=== PATIENT | female | born 1940 | race Caucasian/White ===

== ENCOUNTER → 2023-11-17 05:00 | Outpatient (REF) | payer MEDICARE, OTHER, SELFPAY ==
[2023-11-17 10:52] LABS: Hematocrit 37.9 % (37-47); Hemoglobin 12.2 g/dL (12.0-15.0); Mean Corp Hgb Conc 32.2 g/dL (32-36); Mean Corpuscular Hgb 28.1 pg (27.0-32.0); Mean Corpuscular Volume 87.3 fL (81-99); Mean Platelet Vol. 10.6 fl (6.2-12.0); Platelet Count 112 K/mm3 (150-450); RBC Distribution Width CV 18.2 % (11.6-14.6); RBC Distribution Width SD 58.2 fl (35.1-43.9); Red Blood Count 4.34 M/mm3 (4.2-5.4); White Blood Count 6.8 K/mm3 (4.4-11.0)
[2023-11-17 11:24] LABS: ALB/GLOB Ratio 0.8 RATIO (0.9-2.4); AST(SGOT) 21 U/L (15-37); Alanine Aminotransfer ALT/SGPT 19 U/L (13-56); Alkaline Phosphatase 117 U/L (45-117); Anion Gap 5 (5-15); BUN 15 mg/dL (7-18); BUN/Creat Ratio 16.9 RATIO (10-20); Calcium,Total 9.9 mg/dL (8.5-10.1); Chloride 99 mmol/L (98-107); Creatinine, Serum 0.89 mg/dL (0.55-1.02); EST Glomerular Filtration Rate 64 mL/min (>60); Est Glom Filt Rate - Afr Amer 78 mL/min (>60); Globulin 3.7 g/dL (2.2-4.2); Glucose 107 mg/dL (74-106); Potassium 3.8 mmol/L (3.5-5.1); Protein, Total 6.7 g/dL (6.4-8.2); Sodium Level 136 mmol/L (136-145)
== END ==
LOC: OLS.ACH 05:00
PROVIDERS: Visit Provider Internal Medicine
DX: E03.9 Hypothyroidism, unspecified (principal); I50.32 Chronic diastolic (congestive) heart failure
CPT/HCPCS: 36415; 80053; 84443; 85027

== ENCOUNTER → 2023-12-29 | Outpatient (REF) | payer MEDICARE, OTHER, SELFPAY ==
[2023-12-29 11:08] LABS: Thyroid Stim Hormone (TSH) 0.328 uIU/mL (0.358-3.740)
== END ==
LOC: OLS.ACH 05:01
PROVIDERS: Visit Provider Internal Medicine
DX: E03.9 Hypothyroidism, unspecified (principal)
CPT/HCPCS: 36415; 84443

== ENCOUNTER → 2024-01-02 | Outpatient (REF) | payer MEDICARE, OTHER, SELFPAY ==
[2024-01-02 10:41] LABS: Mucous, Urine 0 SEEN /hpf (<or=2+); Red Blood Cells-Urine 0 SEEN /hpf (0-5)
[2024-01-02 10:44] LABS: Color, Urine Yellow (Yellow); Glucose, Dipstick Normal (Normal); Ketone-Dipstick Negative (Negative); Leukocyte Esterase-Dipstick 500 /ul (Negative); Nitrite-Dipstick Positive (Negative); Occult Blood-Urine 50 /ul (Negative); Protein-Dipstick 100 mg/dl (Negative); Specific Gravity, Urine 1.015 (1.002-1.030); Urine Bilirubin Dipstick Negative (Negative); Urine Clarity Sl. Cloudy (Clear); Urine Urobilinogen Normal (Normal)
[2024-01-02 10:51] LABS: Bacteria 2+ /hpf (None Seen); Transitional Epithelial - Ur 0-5 SEEN /hpf (0-5); White Blood Cells 50-100 SEEN /hpf (0-5)
[2024-01-02 10:52] LABS: Squamous Epithelial Cells - UA 0-5 SEEN /hpf (5-10)
== END ==
LOC: OLS.ACH 02:00
PROVIDERS: Visit Provider Internal Medicine
DX: R35.0 Frequency of micturition (principal)
CPT/HCPCS: 81001; 87077; 87086; 87088; 87186

== ENCOUNTER → 2024-01-12 | Outpatient (REF) | payer MEDICARE, OTHER, SELFPAY ==
[2024-01-13 08:24] LABS: Mucous, Urine 0 SEEN /hpf (<or=2+)
[2024-01-13 08:43] LABS: Color, Urine Yellow (Yellow); Glucose, Dipstick Normal (Normal); Ketone-Dipstick Negative (Negative); Leukocyte Esterase-Dipstick 500 /ul (Negative); Nitrite-Dipstick Positive (Negative); Occult Blood-Urine 50 /ul (Negative); Protein-Dipstick 30 mg/dl (Negative); Urine Bilirubin Dipstick Negative (Negative); Urine Clarity Cloudy (Clear); Urine Urobilinogen Normal (Normal); Urine pH 6.5 (5.0 - 8.0)
[2024-01-13 08:49] LABS: Bacteria 2+ /hpf (None Seen); Red Blood Cells-Urine 0-5 SEEN /hpf (0-5); Squamous Epithelial Cells - UA 0-5 SEEN /hpf (5-10); White Blood Cells >100 SEEN /hpf (0-5)
== END ==
LOC: OLS.ACH 21:20
PROVIDERS: Referring Provider Internal Medicine; Visit Provider Internal Medicine
DX: R35.0 Frequency of micturition (principal); Z87.440 Personal history of urinary (tract) infections
CPT/HCPCS: 81001; 87077; 87086; 87088; 87186

== ENCOUNTER → 2024-02-02 | Outpatient (REF) | payer MEDICARE, OTHER, SELFPAY ==
[2024-02-02 09:21] LABS: Hematocrit 37.2 % (37-47); Hemoglobin 12.1 g/dL (12.0-15.0); Mean Corp Hgb Conc 32.5 g/dL (32-36); Mean Corpuscular Hgb 28.2 pg (27.0-32.0); Mean Corpuscular Volume 86.7 fL (81-99); Mean Platelet Vol. 10.3 fl (6.2-12.0); POSITIVE COUNT YES; Platelet Count 87 K/mm3 (150-450); RBC Distribution Width CV 13.9 % (11.6-14.6); RBC Distribution Width SD 44.1 fl (35.1-43.9); Red Blood Count 4.29 M/mm3 (4.2-5.4); White Blood Count 4.7 K/mm3 (4.4-11.0)
[2024-02-02 09:31] LABS: Anion Gap 4 (5-15); BUN 15 mg/dL (7-18); BUN/Creat Ratio 19.2 RATIO (10-20); Calcium,Total 9.4 mg/dL (8.5-10.1); Chloride 102 mmol/L (98-107); Creatinine, Serum 0.78 mg/dL (0.55-1.02); EST Glomerular Filtration Rate 74 mL/min (>60); Est Glom Filt Rate - Afr Amer 90 mL/min (>60); Glucose 80 mg/dL (74-106); Potassium 3.9 mmol/L (3.5-5.1); Sodium Level 138 mmol/L (136-145)
[2024-02-02 09:36] LABS: Scan Indicated on CBC? Y/N YES- FLAGS NOTED
== END ==
LOC: OLS.ACH 05:00
PROVIDERS: Visit Provider Internal Medicine
DX: I50.32 Chronic diastolic (congestive) heart failure (principal)
CPT/HCPCS: 36415; 80048; 85027

== ENCOUNTER → 2024-02-09 | Outpatient (REF) | payer MEDICARE, OTHER, SELFPAY | LOC: OLS.ACH 04:00 | PROVIDERS: Referring Provider Internal Medicine; Visit Provider Internal Medicine | DX: E03.9 Hypothyroidism, unspecified (principal) | CPT/HCPCS: 36415; 84443 ==

== ENCOUNTER → 2024-03-11 05:00 | Outpatient (REF) | payer MEDICARE, OTHER, SELFPAY ==
[2024-03-11 10:01] LABS: Anion Gap 5 (5-15); BUN 16 mg/dL (7-18); BUN/Creat Ratio 18.8 RATIO (10-20); Calcium,Total 9.9 mg/dL (8.5-10.1); Chloride 99 mmol/L (98-107); Creatinine, Serum 0.85 mg/dL (0.55-1.02); EST Glomerular Filtration Rate 68 mL/min (>60); Est Glom Filt Rate - Afr Amer 82 mL/min (>60); Glucose 89 mg/dL (74-106); Potassium 3.8 mmol/L (3.5-5.1); Sodium Level 136 mmol/L (136-145)
== END ==
LOC: OLS.ACH 05:00
PROVIDERS: Visit Provider Internal Medicine
DX: I50.32 Chronic diastolic (congestive) heart failure (principal)
CPT/HCPCS: 36415; 80048

== ENCOUNTER 2024-04-17 04:55 | Inpatient (IN) | payer MEDICARE, SELFPAY ==
[2024-04-17] VITALS (15 sets, daily range): BP systolic 121–141; BP diastolic 71–120; PULSE 84–94; RESP 18–29; TEMP 35.7–36.9; O2SAT 90–100; BMI 39.4; BMI 37.9
--- NOTE | 2024-04-17 05:28 | RAD_ITS ---
PROCEDURE: Portable upright chest radiograph, one view REASON FOR EXAM: Cough. TECHNIQUE: Portable upright chest radiograph, one view COMPARISON: None. FINDINGS: The patient is rotated slightly to the right. Bones are osteopenic, grossly intact. Severe degenerative changes of the glenohumeral joints. Heart size at the upper limits of normal. Mild perihilar vascular crowding. No pneumothorax. There may be a tiny right pleural effusion. There are some patchy opacities projecting over the mid to lower lungs bilaterally. 1.8 cm nodular opacity projects over the right mid lung. RAD/Chest 1 View (Portable) IMPRESSION: Mild rightward rotation. Heart size at the upper limits of normal. There are some patchy opacities projecting over the mid to lower lungs bilatera lly, which could be due to areas of atelectasis or developing pneumonia. Question tiny right pleural effusion. Recommend continu ed radiologic follow-up to document resolution. A 1.8 cm nodular opacity projects over the right mid lung. Recommend short-ter m follow-up chest CT to exclude the possibility of a pulmonary nodule. Severe degenerative changes of the glenohumeral joints. Reading Location: [facility]
[2024-04-17 05:36] LABS: Absolute Lymphocyte Count 1.23 X10^3/uL (0.83-4.51); Absolute Neutrophil Count 6.2 X10^3/uL (2.0-7.7); Basophil# 0.03 X10^3/uL; Basophil% 0.3 % (0-1); Eosinophil# 0.01 X10^3/uL; Eosinophils% 0.1 % (0-5); Hematocrit 37.7 % (37-47); Hemoglobin 12.2 g/dL (12.0-15.0); Lymphocyte # 1.23 X10^3/ul (0.83-4.51); Lymphocyte % 13.4 % (19-41); Mean Corp Hgb Conc 32.4 g/dL (32-36); Mean Corpuscular Hgb 28.4 pg (27.0-32.0); Mean Corpuscular Volume 87.9 fL (81-99); Mean Platelet Vol. 10.5 fl (6.2-12.0); Monocyte# 1.53 X10^3/uL; Monocyte% 16.6 % (0-10); NRBC Flagged by Analyzer 0 % (0-5); Neutrophil # 6.23 X10^3/uL (2.7-7.7); Neutrophil % 67.9 % (47-70); POSITIVE DIFFERENTIAL YES; Platelet Count 151 K/mm3 (150-450); RBC Distribution Width CV 14.7 % (11.6-14.6); RBC Distribution Width SD 47.6 fl (35.1-43.9); Red Blood Count 4.29 M/mm3 (4.2-5.4); White Blood Count 9.2 K/mm3 (4.4-11.0)
[2024-04-17 05:44] LABS: Differential Indicated SCAN CRITERIA MET
[2024-04-17 05:45] LABS: Anion Gap 5 (5-15); BUN 17 mg/dL (7-18); BUN/Creat Ratio 20.6 RATIO (10-20); Calcium,Total 9.8 mg/dL (8.5-10.1); Chloride 95 mmol/L (98-107); Creatinine, Serum 0.83 mg/dL (0.55-1.02); EST Glomerular Filtration Rate 70 mL/min (>60); Est Glom Filt Rate - Afr Amer 84 mL/min (>60); Estimated Creatinine Clearance 52.04 ml/min; Glucose 85 mg/dL (74-106); Magnesium 1.7 mg/dL (1.6-2.6); Potassium 4.1 mmol/L (3.5-5.1); Sodium Level 136 mmol/L (136-145)
[2024-04-17 05:59] LABS: Allen Test Positive; Base Excess 12 mmol/L (-2 to +2); Bicarbonate 36.1 mmol/L (22-26); Blood Gas Specimen Type ART; Mode Not entered; O2 Delivery Device Not entered; PO2 78 mmHG (75-100); SITE R Radial; SO2 96 % (95-99); Total Carbon Dioxide 38 mmol/L; pCO2 53.5 mmHg (35-45); pH 7.44 (7.35-7.45)
[2024-04-17 06:07] LABS: Differential Comment SCANNED
[2024-04-17 06:13] LABS: BNP,B-Type NATRIURETIC PEPTIDE 84.1 pg/mL (0-100)
[2024-04-17 07:25] LABS: Procalcitonin 0.16 ng/mL (0.00-0.09)
--- NOTE | 2024-04-17 07:26 | EDS_ITS ---
HPI History of Present Illness Chief Complaint: Shortness of Breath Informant: patient and EMS Narrative Narrative: Patient is an 83-year-old female with history of COPD who does not require supplemental oxygen at baseline. Reportedly she began with increased cough and shortness of breath Friday or around 2 in the afternoon. Patient and [facility] staff state it seemed to have worsened throughout the night and when they did vitals this morning pulse ox was low at approximately 80%. Secondary to the hypoxia and the fact she does not require oxygen at baseline EMS was called he was brought to the hospital for evaluation EMS states patient was tight and wheezy and they gave 2 DuoNeb's and Solu-Medrol prior to arrival [facility] Medical History Hypothyroidism, unspecified Other intervertebral disc degeneration, lumbar region with discogenic back pain only Other specified peripheral vascular diseases Chronic diastolic (congestive) heart failure Home Medications ?Medication ?Instructions ?Recorded ?Last Taken ?Type acetaminophen 325 mg capsule 650 mg PO TID 04/17/24 Un known History amlodipine 5 mg tablet 5 mg PO DAILY 04/17/24 Unkno wn History baclofen 10 mg tablet 10 mg PO TID 04/17/24 Unknow n History beclomethasone dipropionate 40 2 inh inhalation BID Unknown History mcg/actuation HFA breath activated aerosol esomeprazole magnesium 20 mg 20 mg PO DAILY 04/17/24 U nknown History capsule,delayed release prednisone 5 mg tablet 5 mg PO DAILY 04/17/24 Unkno wn History tramadol 50 mg tablet 50 mg PO BID pain 04/17/24 U nknown History Allergy/AdvReac Type Severity Reaction Status Date / Time adhesive tape Allergy PT UNSURE Verified 04/17/24 05:57 OF REACTION aspartame Allergy PT UNSURE Verified 04/17/24 05:57 OF REACTION duloxetine Allergy PT UNSURE Verified 04/17/24 05:57 OF REACTION lorazepam Allergy PT UNSURE Verified 04/17/24 05:57 OF REACTION morphine Allergy PT UNSURE Verified 04/17/24 05:57 OF REACTION oxycodone Allergy PT UNSURE Verified 04/17/24 05:57 OF REACTION ROS ROS ED Constitutional Constitutional ED: Denies chills or fever(s) Eyes Eyes: Denies change in vision ENT ENT ED: Denies sore throat Cardiovascular Cardiovascular: Denies chest pain Respiratory/Chest Respiratory/Chest: Reports cough, dyspnea and other Details: Positive orthopnea Gastrointestinal Gastrointestinal: Denies abdominal pain, diarrhea, nausea or vomiting Musculoskeletal Musculoskeletal: Denies myalgias Integumentary Denies rash Neurologic Neurologic: Denies headache(s) Hematologic/Lymphatic Hematologic/Lymphatic: Denies easy bleeding or easy bruising Allergic/Immunologic Allergic/Immunologic ED: Denies mouth swelling or tongue swelling EXAM Physical Exam Const Vital Signs: 04/17/24 04:56 04/17/24 05:04 04/17/24 05:56 Temperature 98.5 F 98.5 F Temperature Source Oral Oral Pulse Rate 87 90 94 Respiratory Rate 29 H 25 H 18 Respiratory Effort Respiratory Pattern Blood Pressure 128/74 H 128/74 H 121/83 H Blood Pressure Mean 92 92 95 Pulse Ox 90 93 95 Oxygen Delivery Method High Flow High Flow High Flow Oxygen Flow Rate (L/min) 8 8 8 04/17/24 06:00 04/17/24 06:04 04/17/24 06:55 Temperature 98.2 F Temperature Source Temporal Pulse Rate 87 88 Respiratory Rate 18 20 H Respiratory Effort Short of Breath Labored Respiratory Pattern Tachypnea Blood Pressure 135/120 H 135/120 H Blood Pressure Mean 125 125 Pulse Ox 92 91 Oxygen Delivery Method High Flow High Flow High Flow Oxygen Flow Rate (L/min) 8 8 8 Positive well nourished, well developed and obese General Appearance ED: well developed; Negative for pallor Nutritional Appearance: obese HEENT HEENT Narrative: No tongue or lip swelling no oral lesions no airway edema or compromise Cobblestoning is noted in the posterior pharynx consistent with sinus drainage Eyes PERRL and EOMs intact bilaterally General Eye ED: Negative for scleral icterus Neck supple and no JVD Resp Resp Narrative: Patient is tachypneic with slight accessory muscle use Breath sounds are diminished throughout with diffuse inspiratory and expiratory wheezing. No nasal flaring or retractions. No crackles noted Cardio regular rate and regular rhythm Rate: other Other Details: Heart is regular rate and rhythm Radial and carotid pulses are equal and symmetric GI normal to inspection, nondistended, normoactive bowel sounds, non-tender, non- distended and no masses GI Narrative: No pulsatile mass or fluid wave Auscultation: normoactive bowel sounds Palpation: soft Extremity Extremity Narrative: +1-2 pitting edema to the bilateral lower extremities that is equal and symmetric with negative Homans' sign bilaterally Neuro CN's II-XII intact bilaterally Neuro Narrative: Patient is at baseline mental status per POA; she is awake and alert to person and place but disoriented to time Cranial nerves II through XII however grossly intact without focal neurologic deficit Sensorium / Orientation: alert Psych Psych Narrative: Patient has an agitated affect Skin no rashes or lesions noted General Skin Exam: Negative for jaundice or pallor MDM MDM MDM Narrative Medical decision making narrative: Patient arrived to the ER at her baseline mental status per POA with mild respiratory distress. EMS reported she received Solu-Medrol and 2 DuoNeb's and on exam there are wheezes present which would correlate more with COPD exacerbation. I do not note obvious crackles and there are no obvious findings of volume overload to suggest congestive heart failure exacerbation. Patient may have COVID versus influenza versus RSV or potential pneumonia. There is concern for acute blood loss anemia or acute kidney injury or clinically significant electrolyte abnormality. Blood work revealed no white count or left shift indicating chest x-ray changes are most likely atelectasis or viral in nature. However her COVID flu and RSV swab was negative. After being placed on high flow nasal cannula her pulse ox improved into the low 90s. At this time she does not typically require supplemental oxygen for her COPD but is now needing high flow nasal cannula oxygen and as she does not have that available to her at her assisted living/home it is not safe for her to be discharged back. The patient was initially refusing admission but I talked to her daughter/POA who agrees with placement in the hospital is the safest option at this time and then discussed the plan of care with her mother who is now agreeable to admission to the hospital. Following this the case was discussed with the hospitalist who to accept the patient for further care. At this time as she does not have a fever or leukocytosis or left shift we will hold off on blood cultures and IV antibiotic. Of note we did attempt to perform a CT of the chest in the ER but patient refused secondary to difficulty breathing while lying down History & Record Review Discussion w/independent historian: EMS personnel and Patient Lab Data Attestation: I reviewed the patient's lab results. Labs: Laboratory Results - last 24 hr 04/17/24 04/17/24 05:23 06:00 WBC 9.2 RBC 4.29 Hgb 12.2 Hct 37.7 MCV 87.9 MCH 28.4 MCHC 32.4 RDW Std Deviation 47.6 H RDW Coeff of [place] 14.7 H Plt Count 151 MPV 10.5 Immature Gran % (Auto) 1.700 H Neut % (Auto) 67.9 Lymph % (Auto) 13.4 L [place] % (Auto) 16.6 H Eos % (Auto) 0.1 Baso % (Auto) 0.3 Absolute Neuts (auto) 6.2 Absolute Lymphs (auto) 1.23 Nucleated RBC % 0 Differential Comment SCANNED Sodium 136 Potassium 4.1 Chloride 95 L Carbon Dioxide 36.0 H Anion Gap 5 BUN 17 Creatinine 0.83 Estim Creat Clear Calc 52.04 Est GFR (MDRD) Af Amer 84 Est GFR (MDRD) Non-Af 70 BUN/Creatinine Ratio 20.6 H Glucose 85 Calcium 9.8 Magnesium 1.7 B-Natriuretic Peptide 84.1 Procalcitonin 0.16 H ABG Data ABG results: ABG 04/17/24 05:55 Specimen Type ART Sample Site R Radial pH 7.44 Bicarbonate Actual 36.1 H Total CO2 38 Base Excess 12 H O2 Saturation 96 O2 % 8.0 ABG pCO2 53.5 H ABG pO2 78 Martin Test Positive O2 Delivery Device Not entered Vent Mode Not entered Radiography Diagnostic Testing: Clinical Impression(s) from Imaging Studies Chest X-Ray 04/17/24 05:28 IMPRESSION: Mild rightward rotation. Heart size at the upper limits of normal. There are some patchy opacities projecting over the mid to lower lungs bilaterally, which could be due to areas of atelectasis or developing pneumonia. Question tiny right pleural effusion. Recommend continued radiologic follow-up to document resolution. A 1.8 cm nodular opacity projects over the right mid lung. Recommend short-term follow-up chest CT to exclude the possibility of a pulmonary nodule. Severe degenerative changes of the glenohumeral joints. Reading Location: [facility] Chest x-ray as interpreted by the emergency medicine physician reveals hazy opacities in the bilateral lower lungs which could be atelectasis versus developing pneumonia Management Discussion w/another healthcare provider: Hospitalist Discharge Plan Triage Chief Complaint: Shortness of Breath ED Provider: Ayan Virk Dx/Rx/DC Orders Clinical Impression: Acute respiratory failure with hypoxia, COPD with acute exacerbation, Hypothyroidism, Congestive heart failure Prescriptions: No Action prednisone 5 mg tablet 5 mg PO DAILY Rx Instructions: start 04/17/24, end 04/19/24 tramadol 50 mg tablet 50 mg PO BID acetaminophen 325 mg capsule 650 mg PO TID amlodipine 5 mg tablet 5 mg PO DAILY baclofen 10 mg tablet 10 mg PO TID beclomethasone dipropionate 40 mcg/actuation HFA aerosol breath activated 2 inh inhalation BID Rx Instructions: for sob, rinse mouth after use esomeprazole magnesium 20 mg capsule,delayed release(DR/EC) 20 mg PO DAILY Primary Care Provider: Kaleb Mace Sr. Referrals: Kaleb Mace Sr., DO [Primary Care Provider] - Print Language: Uzbek Disposition Disposition: Acute Care Hospital [facility]
--- NOTE | 2024-04-17 07:28 | HP.PCM.HOS_ITS ---
HPI - General General Date of Admission: 04/17/24 Date of Service: 04/17/24 Chief Complaint: Worsening shortness of breath with cough HPI Narrative KRISH PERALTA, is a 83 F who presented to [facility] ED on 04/17/2024 from care home for worsening shortness of breath with cough. Has known history of COPD but does not wear oxygen at baseline. Staff at care home noted that patient had worsening cough and shortness of breath starting yesterday. They then noticed that her pulse ox was around 80% on room air this morning so she was brought in for further evaluation. She was given a breathing treatment and a dose of IV Solu-Medrol and route with some improvement. In the ED she was afebrile and blood pressure was normal with no tachycardia, but patient was requiring 10 L high flow nasal cannula to maintain oxygen saturations greater than 90%. Was noted that she had only mild increased work of breathing. Patient was alert to person and place but not to time. Family apparently noted to ED physician that this was close to her baseline. Chest x- ray showed some patchy opacities over the mid to lower lungs bilaterally concerning for atelectasis versus developing pneumonia, along with a 1.8 cm nodular opacity over the right midlung. ED physician wished to do a CT scan of the chest but patient stated she could not lay flat and refused the scan. Given her respiratory failure with concern for pneumonia, hospitalist was contacted for admission. I saw the patient at bedside in the ED, no family was present. Patient was alert but did appear somewhat confused. She knew she was at [facility] but could not tell me month or year. She was mildly agitated and appeared upset that she needed to be admitted to the hospital. She denied any shortness of breath currently on supplemental oxygen. Denied any fevers or chills. No other acute concerns this time. [facility] Medical History Hypothyroidism, unspecified Other intervertebral disc degeneration, lumbar region with discogenic back pain only Other specified peripheral vascular diseases Chronic diastolic (congestive) heart failure Home Medications ?Medication ?Instructions ?Recorded ?Last Taken ?Type acetaminophen 325 mg capsule 650 mg PO TID Pain 04/16/24 History amlodipine 5 mg tablet 5 mg PO DAILY B/P 04/17/24 0 04/16/24 History baclofen 10 mg tablet 10 mg PO TID Spasms 04/17/24 04/16/24 History beclomethasone dipropionate 40 2 inh inhalation BID Re spitory 04/17/24 04/16/24 History mcg/actuation HFA breath activated aerosol esomeprazole magnesium 20 mg 20 mg PO DAILY Reflux 11/0104/16/24 History capsule,delayed release prednisone 5 mg tablet 5 mg PO DAILY inflammation 0 04/17/24 04/16/24 History tramadol 50 mg tablet 50 mg PO BID pain 04/17/24 0 04/16/24 History Allergy/AdvReac Type Severity Reaction Status Date / Time adhesive tape Allergy PT UNSURE Verified 04/17/24 05:57 OF REACTION aspartame Allergy PT UNSURE Verified 04/17/24 05:57 OF REACTION duloxetine Allergy PT UNSURE Verified 04/17/24 05:57 OF REACTION lorazepam Allergy PT UNSURE Verified 04/17/24 05:57 OF REACTION morphine Allergy PT UNSURE Verified 04/17/24 05:57 OF REACTION oxycodone Allergy PT UNSURE Verified 04/17/24 05:57 OF REACTION Social History Smoking Status: Never smoker ROS Constitutional Constitutional: Denies chills, fatigue or fever(s) Cardiovascular Cardiovascular: Denies chest pain Respiratory/Chest Respiratory/Chest: Reports cough, shortness of breath at rest, shortness of breath with exertion and wheezing; Denies productive cough Gastrointestinal Gastrointestinal: Denies abdominal pain Neurologic Neurologic: Denies dizziness or headache(s) Vital Signs Vital Signs Vital Signs: 04/17/24 04:56 04/17/24 05:04 04/17/24 05:56 Temperature 98.5 F 98.5 F Temperature Source Oral Oral Pulse Rate 87 90 94 Respiratory Rate 29 H 25 H 18 Respiratory Effort Respiratory Pattern Blood Pressure 128/74 H 128/74 H 121/83 H Blood Pressure Mean 92 92 95 Pulse Ox 90 93 95 Oxygen Delivery Method High Flow High Flow High Flow Oxygen Flow Rate (L/min) 8 8 8 04/17/24 06:00 04/17/24 06:04 04/17/24 06:55 Temperature 98.2 F Temperature Source Temporal Pulse Rate 87 88 Respiratory Rate 18 20 H Respiratory Effort Short of Breath Labored Respiratory Pattern Tachypnea Blood Pressure 135/120 H 135/120 H Blood Pressure Mean 125 125 Pulse Ox 92 91 Oxygen Delivery Method High Flow High Flow High Flow Oxygen Flow Rate (L/min) 8 8 8 Weight Weight: 94.6 kg Body Mass Index (BMI) 39.4 Physical Exam Const alert Constitutional Narrative: Elderly female, class II obesity, alert and oriented x [address], mildly agitated and confused but otherwise breathing comfortably on 10 L high flow nasal cannula and in no acute distress. General Appearance: cooperative HEENT normocephalic, head/scalp atraumatic, hearing grossly normal bilaterally, nasal mucous membranes and turbinates normal and moist oral mucous membranes Eyes PERRL, EOMs intact bilaterally and conjunctivae normal Neck full ROM Chest inspection of chest normal Resp normal respiratory effort and no use of accessory muscles Resp Narrative: Breathing comfortably on 10 L high flow nasal cannula at rest. Mild to moderately decreased breath sounds bilaterally with upper airway wheezing noted and mild bibasilar crackles noted. Cardio regular rate, regular rhythm, no murmurs and peripheral pulses 2+ throughout GI normal to inspection, nondistended, normoactive bowel sounds, soft to palpation, non-tender and non-distended Back/Spine normal ROM Extremity normal to inspection, full ROM and no pedal edema Skin no rashes or lesions noted Neuro moves all extremities and no focal motor deficits Psych Mood & Affect: anxious Results Lab / Micro Data 04/17/24 05:23 04/17/24 05:23 Labs: Laboratory Results - last 24 hr 04/17/24 05:23: WBC 9.2, RBC 4.29, Hgb 12.2, Hct 37.7, MCV 87.9, MCH 28.4, MCHC 32.4, RDW Std Deviation 47.6 H, RDW Coeff of [place] 14.7 H, Plt Count 151, MPV 10.5, Immature Gran % (Auto) 1.700 H, Neut % (Auto) 67.9, Lymph % (Auto) 13.4 L, [place] % (Auto) 16.6 H, Eos % (Auto) 0.1, Baso % (Auto) 0.3, Absolute Neuts (auto) 6.2, Absolute Lymphs (auto) 1.23, Nucleated RBC % 0, Differential Comment SCANNED, Sodium 136, Potassium 4.1, Chloride 95 L, Carbon Dioxide 36.0 H, Anion Gap 5, BUN 17, Creatinine 0.83, Estim Creat Clear Calc 52.04, Est GFR (MDRD) Af Amer 84, Est GFR (MDRD) Non-Af 70, BUN/Creatinine Ratio 20.6 H, Glucose 85, Calcium 9.8, Magnesium 1.7, B-Natriuretic Peptide 84.1 04/17/24 06:00: Procalcitonin 0.16 H Micro: Microbiology 04/17/24 05:23 Mucosa - Nose SARS-CoV-2, Influenza & RSV (PCR) - Final ABG Data ABG results: ABG 04/17/24 05:55 Specimen Type ART Sample Site R Radial pH 7.44 Bicarbonate Actual 36.1 H Total CO2 38 Base Excess 12 H O2 Saturation 96 O2 % 8.0 ABG pCO2 53.5 H ABG pO2 78 Martin Test Positive O2 Delivery Device Not entered Vent Mode Not entered Imaging Radiology Impression Chest X-Ray 04/17/24 05:28 IMPRESSION: Mild rightward rotation. Heart size at the upper limits of normal. There are some patchy opacities projecting over the mid to lower lungs bilaterally, which could be due to areas of atelectasis or developing pneumonia. Question tiny right pleural effusion. Recommend continued radiologic follow-up to document resolution. A 1.8 cm nodular opacity projects over the right mid lung. Recommend short-term follow-up chest CT to exclude the possibility of a pulmonary nodule. Severe degenerative changes of the glenohumeral joints. Reading Location: [facility] Assessment & Plan Assessment/Plan (1) Acute respiratory failure with hypoxia: (2) COPD with acute exacerbation: PLAN: Plan Patient is an 83-year-old female who presented [facility] ED on 04/17/2024 with worsening shortness of breath and cough. 1. Acute COPD exacerbation with acute hypoxic respiratory failure ? Admit under inpatient status to PCU. History of COPD but does not wear O2 at baseline. Requiring 10 L high flow nasal cannula on admit to maintain appropriate oxygen saturations. Chest x-ray showed patchy opacities in the mid to lower lungs bilaterally concerning for atelectasis versus pneumonia. Decreased breath sounds with mild wheezing noted in upper airways on exam. COVID/flu/RSV negative. Pro-David normal. ABG showed pH 7.44, pCO2 53, pO2 78. BNP normal. Seems most consistent with viral infection leading to COPD exacerbation, full respiratory panel sent. Will treat with scheduled DuoNebs and IV steroids for now. Wean supplemental oxygen as able. 2. Altered mentation ? Alert and oriented x 2 on admit. Family mentioned to the ED physician that patient was close to her mental status baseline, but nursing staff on floor noted that patient appeared quite confused possibly more than her baseline. ABG unremarkable on admit as noted above. UA ordered. 3. Chronic debility ? Case management consulted. Patient lives at [facility] and care home side. Should be okay to return there on discharge. Chronic medical conditions: ? Class II obesity: BMI 37 on admit. Complicates hospital course, care and rec gnosis. ? Chronic pain syndrome: Continue home scheduled Tylenol, baclofen, and tramadol. ? Hypertension: Continue home amlodipine. ? GERD: Continue home PPI. DVT prophylaxis: Lovenox CODE STATUS: DNR CCA, DNI. Had DNR paperwork provided on admission. Expected disposition: Back to care home, TBD Total clinical time spent by myself addressing the patient's medical issues, reviewing all the data, and collaborating with patient's care team: 55 minutes. Charges/Coding Visit Charges Inpatient E&M: 22695 Init Hosp L2
--- NOTE | 2024-04-17 09:02 | ED.RN ---
PT GOING DOWN TO ENDO FOR PLACEMENT OF G-TUBE. RETURNING TO ED BEFORE D/C BACK TO [facility]. PT IN HALLWAY BED UNTIL RETURN
--- NOTE | 2024-04-17 10:22 | NURSING ---
Notified Son of patient room number.
[2024-04-17] MEDS: Ipratropium/Albuterol Sulfate 3 ML AMPUL.NEB INHALATION ×2 (10:26→23:28)
[2024-04-17] MEDS: Enoxaparin 40 MG/0.4 ML Syringe SC (11:22)
[2024-04-17] MEDS: amLODIPine 5 MG Tablet PO (11:22)
[2024-04-17] MEDS: Pantoprazole Sodium 20 MG Tablet PO (11:22)
[2024-04-17] MEDS: traMADol 50 MG Tablet PO ×2 (11:24→22:06)
[2024-04-17] MEDS: Acetaminophen 325 MG Tablet 650 MG PO ×2 (14:04→22:06)
[2024-04-17] MEDS: 0.9% Saline Lock 10 ML Syringe IV (14:04)
[2024-04-17] MEDS: Baclofen 10 MG Tablet PO ×2 (14:04→22:06)
[2024-04-17 14:58] LABS: Color, Urine Yellow (Yellow); Glucose, Dipstick Normal (Normal); Ketone-Dipstick Negative (Negative); Leukocyte Esterase-Dipstick 100 /ul (Negative); Nitrite-Dipstick Positive (Negative); Occult Blood-Urine 10 /ul (Negative); Protein-Dipstick 30 mg/dl (Negative); Urine Bilirubin Dipstick Negative (Negative); Urine Clarity Cloudy (Clear); Urine Urobilinogen 1 mg/dl (Normal)
[2024-04-18] VITALS (8 sets, daily range): BP systolic 125–145; BP diastolic 67–81; PULSE 77–98; RESP 16–28; TEMP 36.6–37.1; O2SAT 93–94
[2024-04-18] MEDS: Baclofen 10 MG Tablet PO ×3 (04:50→21:10)
[2024-04-18] MEDS: Acetaminophen 325 MG Tablet 650 MG PO ×3 (04:53→21:09)
[2024-04-18] MEDS: 0.9% Saline Lock 10 ML Syringe IV ×6 (04:54→21:10)
[2024-04-18 05:00] LABS: Hematocrit 41.9 % (37-47); Hemoglobin 13.5 g/dL (12.0-15.0); Mean Corp Hgb Conc 32.2 g/dL (32-36); Mean Corpuscular Hgb 28.2 pg (27.0-32.0); Mean Corpuscular Volume 87.7 fL (81-99); POSITIVE COUNT YES; RBC Distribution Width CV 14.3 % (11.6-14.6); RBC Distribution Width SD 46.3 fl (35.1-43.9); Red Blood Count 4.78 M/mm3 (4.2-5.4); White Blood Count 8.7 K/mm3 (4.4-11.0)
[2024-04-18 06:14] LABS: Anion Gap 10 (5-15); BUN 24 mg/dL (7-18); BUN/Creat Ratio 33.2 RATIO (10-20); Calcium,Total 9.9 mg/dL (8.5-10.1); Chloride 98 mmol/L (98-107); Creatinine, Serum 0.72 mg/dL (0.55-1.02); EST Glomerular Filtration Rate 82 mL/min (>60); Est Glom Filt Rate - Afr Amer 99 mL/min (>60); Estimated Creatinine Clearance 52.82 ml/min; Glucose 107 mg/dL (74-106); Potassium 4.4 mmol/L (3.5-5.1); Sodium Level 137 mmol/L (136-145)
[2024-04-18] MEDS: Budesonide Respules 0.5 MG/2 ML AMPUL.NEB. INHALATION ×2 (07:00→18:59)
[2024-04-18] MEDS: Ipratropium/Albuterol Sulfate 3 ML AMPUL.NEB INHALATION ×2 (07:00→18:59)
[2024-04-18] MEDS: Ceftriaxone 1 GM/50 ML BAG IV (10:34)
[2024-04-18] MEDS: amLODIPine 5 MG Tablet PO (10:35)
[2024-04-18] MEDS: Oseltamivir Phosphate 30 MG Capsule PO ×2 (10:35→21:10)
[2024-04-18] MEDS: Enoxaparin 40 MG/0.4 ML Syringe SC (10:35)
[2024-04-18] MEDS: Pantoprazole Sodium 20 MG Tablet PO (10:35)
[2024-04-18] MEDS: traMADol 50 MG Tablet PO ×2 (10:38→21:10)
--- NOTE | 2024-04-18 10:39 | PN.HOSP_ITS ---
Reason for Visit Reason for Visit: Diagnoses Chronic obstructive pulmonary disease with (acute) exacerbation (04/17/24) Acute respiratory failure with hypoxia (04/17/24) Subjective Subjective Saw patient at bedside this morning. Patient was sitting up comfortably in bedside chair, in no acute distress. She appeared to have better energy today than yesterday. She did have a few episodes of dry cough during our encounter. She remained upset about having to stay in the hospital. She remains alert and oriented x 2. Denies any other new concerns this morning. Objective Data Objective Data Vital Signs: Vital Signs Temp Pulse Resp BP Pulse Ox O2 Del Method O2 Flow Rate 97.8 F 83 18 145/77 H 93 Nasal Cannula 6 04/18/24 09:00 04/18/24 09:00 04/18/24 09:00 04/18/24 09:00 04/18/24 09:00 04/18/24 09:00 04/18/24 09:00 Oxygen Flow Rate (L/min) 6 Oxygen Delivery Method Nasal Cannula Weight: 91 kg Body Mass Index (BMI) 37.9 Intake & Output: Intake and Output for Last 24 Hours 04/16/24 04/17/24 04/18/24 23:59 23:59 23:59 Intake Total 0 / 0 200 / 200 Output Total 500 / 500 Balance 0 / 0 -300 / -300 Lab / Micro Data 04/18/24 04:20 04/18/24 04:20 Labs: Laboratory Results - last 24 hr 04/17/24 14:32: Urine Color Yellow, Urine Clarity Cloudy, Urine pH 8.0, Ur Specific [place] 1.010, Urine Protein 30 H, Urine Glucose (UA) Normal, Urine Ketones Negative, Urine Occult Blood 10 H, Urine Nitrite Positive H, Urine Bilirubin Negative, Urine Urobilinogen 1 H, Ur Leukocyte Esterase 100 H 04/18/24 04:20: WBC 8.7, RBC 4.78, Hgb 13.5, Hct 41.9, MCV 87.7, MCH 28.2, MCHC 32.2, RDW Std Deviation 46.3 H, RDW Coeff of [place] 14.3, Plt Count TNP, MPV 10.0, Sodium 137, Potassium 4.4, Chloride 98, Carbon Dioxide 29.0, Anion Gap 10, BUN 24 H, Creatinine 0.72, Estim Creat Clear Calc 52.82, Est GFR (MDRD) Af Amer 99, Est GFR (MDRD) Non-Af 82, BUN/Creatinine Ratio 33.2 H, Glucose 107 H, Calcium 9.9 Micro: Microbiology 04/17/24 10:25 Mucosa - Nasopharyngeal Respiratory Panel (PCR) - Final Influenzae A 04/17/24 05:23 Mucosa - Nose SARS-CoV-2, Influenza & RSV (PCR) - Final Physical Exam Const alert Constitutional Narrative: Elderly female, class II obesity, alert and oriented x [address], mildly argumentative with conversation but otherwise sitting up comfortably in bedside chair, in no acute distress. General Appearance: cooperative HEENT normocephalic, head/scalp atraumatic, hearing grossly normal bilaterally, nasal mucous membranes and turbinates normal and moist oral mucous membranes Eyes PERRL, EOMs intact bilaterally and conjunctivae normal Neck full ROM Chest inspection of chest normal Resp normal respiratory effort and no use of accessory muscles Resp Narrative: Breathing comfortably on 6 L high flow nasal cannula at rest. Mild to moderately decreased breath sounds bilaterally with upper airway wheezing noted and mild bibasilar crackles noted. Stable. Cardio regular rate, regular rhythm, no murmurs and peripheral pulses 2+ throughout GI normal to inspection, nondistended, normoactive bowel sounds, soft to palpation, non-tender and non-distended Back/Spine normal ROM Extremity normal to inspection, full ROM and no pedal edema Skin no rashes or lesions noted Neuro moves all extremities and no focal motor deficits Psych affect normal Assessment & Plan Assessment/Plan (1) Acute respiratory failure with hypoxia: (2) COPD with acute exacerbation: (3) Influenza A: PLAN: Plan Patient is an 83-year-old female who presented [facility] ED on 04/17/2024 with worsening shortness of breath and cough. 1. Acute COPD exacerbation with acute hypoxic respiratory failure secondary to influenza A infection ? History of COPD but does not wear O2 at baseline. Requiring 10 L high flow nasal cannula on admit to maintain appropriate oxygen saturations. Chest x-ray showed patchy opacities in the mid to lower lungs bilaterally concerning for atelectasis versus pneumonia. Decreased breath sounds with mild wheezing noted in upper airways on exam. COVID/flu/RSV negative in ED but was positive for influenza A on full respiratory panel. Pro-David normal. ABG showed pH 7.44, pCO2 53, pO2 78. BNP normal. Improving, weaned to 6 L nasal cannula on 04/18. Continue treatment with scheduled DuoNebs and IV steroids. Started on Tamiflu on 04/18 as well, will complete 5-day course. Continue to wean supplemental oxygen as able. 2. Cognitive impairment ? Alert and oriented x 2 on admit. There was concern that patient was more confused than her normal but on discussion with family, patient appears to be at her baseline mental status. Continue to avoid sedating medications as able. Treating possible UTI as below. 3. Chronic debility ? Case management following. Patient lives at [facility] and correction side. Should be okay to return there on discharge. 4. Chronic HFpEF ? Reported history of HFpEF, no echo available in our system. Lasix initially was not on her home medication list but after discussion with daughter, was noted that patient is on p.o. Lasix 40 mg twice daily. Given hypoxia and possible mild pulmonary edema on admit as noted above, will give 2 doses of IV Lasix 40 mg daily on 04/18 and then restart home p.o. Lasix on 04/19. 5. Concern for acute cystitis ? UA on admit showed positive nitrites and 100 leukocyte esterase. Patient is a poor historian, unclear if she is having UTI symptoms. Notably had UTI in January that grew Klebsiella that was sensitive to ceftriaxone. Will treat empirically with IV ceftriaxone for now, follow-up urine culture. Chronic medical conditions: ? Class II obesity: BMI 37 on admit. Complicates hospital course, care and prognosis. ? Chronic pain syndrome: Continue home scheduled Tylenol, baclofen, and tramadol. ? Hypertension: Continue home amlodipine. ? GERD: Continue home PPI. DVT prophylaxis: Lovenox CODE STATUS: DNR CCA, DNI. Had DNR paperwork provided on admission. Expected disposition: Back to correction, TBD Total clinical time spent by myself addressing the patient's medical issues, reviewing all the data, and collaborating with patient's care team: 35 minutes. Charges/Coding Visit Charges Inpatient E&M: 84194 Subs Hosp L2
[2024-04-18] MEDS: Furosemide 40 MG/4 ML Vial IV ×2 (12:12→17:45)
[2024-04-19] VITALS (12 sets, daily range): BP systolic 121–134; BP diastolic 64–86; PULSE 60–89; RESP 16–18; TEMP 36.3–36.8; O2SAT 92–96
[2024-04-19] MEDS: Ipratropium/Albuterol Sulfate 3 ML AMPUL.NEB INHALATION ×2 (03:30→07:31)
[2024-04-19] MEDS: Baclofen 10 MG Tablet PO ×2 (05:00→15:53)
[2024-04-19] MEDS: 0.9% Saline Lock 10 ML Syringe IV ×2 (05:00→09:31)
[2024-04-19] MEDS: Acetaminophen 325 MG Tablet 650 MG PO ×2 (05:00→15:57)
[2024-04-19] MEDS: Budesonide Respules 0.5 MG/2 ML AMPUL.NEB. INHALATION (07:31)
[2024-04-19] MEDS: amLODIPine 5 MG Tablet PO (09:26)
[2024-04-19] MEDS: Oseltamivir Phosphate 30 MG Capsule PO (09:26)
[2024-04-19] MEDS: Pantoprazole Sodium 20 MG Tablet PO (09:26)
[2024-04-19] MEDS: Enoxaparin 40 MG/0.4 ML Syringe SC (09:26)
[2024-04-19] MEDS: Furosemide 40 MG Tablet PO (09:26)
[2024-04-19] MEDS: hydrOXYzine PAM 25 MG Capsule 50 MG PO (09:30)
[2024-04-19] MEDS: traMADol 50 MG Tablet PO (09:30)
[2024-04-19] MEDS: Ceftriaxone 1 GM/50 ML BAG IV (09:38)
--- NOTE | 2024-04-19 10:28 | CASEMGMT ---
Addendum entered by Shayna Kraus 04/19/24 10:52: Precert is not needed for pt to return. SW updated. Shayna Kraus DC Planning Asst. Original Note: Updates sent to [facility]. Asked if precert will be needed. Awaiting response. CHANEL Sharpe Planning Asst.
--- NOTE | 2024-04-19 10:31 | CASEMGMT ---
Patient is from [facility]). PEACE called patient's daughter Ambika who is also patient's Healthcare Power of Aircraft Mechanic. Ambika confirmed the plan is for patient to return to [facility] at discharge. Ambika asked for some updates. PEACE told Ambika PEACE will ask the nurse to give her a call. PEACE passed along the message to patient's RN. Gricelda CARDONA
--- NOTE | 2024-04-19 14:01 | CASEMGMT ---
SW notified [facility] that patient will be returning today. Plan: d/c back to [facility] under intermediate level of care. Physicians will transport patient. Gricelda CARDONA
--- NOTE | 2024-04-19 15:42 | PCM.TXEXTCAR ---
Diet Diet Order/Speech Therapy: 04/19/24 15:26 Diet: Regular - No Added Salt Diet Comments: fortified pudding w/ lunch and dinner Routine Orders/Code Status Code Status: DNRCC-A (No intubation) DC O2, CPAP, BIPAP needs Home O2 Discharge instructions: Yes Type of respiratory needs?: Oxygen Oxygen frequency: Continuous Continuous oxygen liters per minute: 2 L and With Ambulation Oxygen liters per minute during Ambulation: 3 L Therapies Weight Bearing: Full weight bearing Problem/Diagnosis (1) Acute respiratory failure with hypoxia: Status: Acute Code(s): J96.01 - Acute respiratory failure with hypoxia (2) COPD with acute exacerbation: Status: Chronic Code(s): J44.1 - Chronic obstructive pulmonary disease with (acute) exacerbation (3) Influenza A: Status: Acute Code(s): J10.1 - Influenza due to other identified influenza virus with other respiratory manifestations Plan 1. Strep pneumoniae pneumonia #2 urinary tract infection with E. coli #3 influenza A infection #4 acute exacerbation of COPD #5 chronic mild cognitive impairment #6 chronic debility #7 chronic congestive heart failure with preserved ejection fraction #8 chronic hypoxic respiratory failure Allergies/Procedures Done in Hospital Allergies adhesive tape Allergy (Verified 04/17/24 05:57) PT UNSURE OF REACTION aspartame Allergy (Verified 04/17/24 05:57) PT UNSURE OF REACTION duloxetine Allergy (Verified 04/17/24 05:57) PT UNSURE OF REACTION lorazepam Allergy (Verified 04/17/24 05:57) PT UNSURE OF REACTION morphine Allergy (Verified 04/17/24 05:57) PT UNSURE OF REACTION oxycodone Allergy (Verified 04/17/24 05:57) PT UNSURE OF REACTION Procedures: None Type of Care/Length of Stay Estimated LOS: More Than 30 Days Type of Care Needed: Intermediate Rehab Potential: Fair Prognosis: Fair Additional Orders/Day of Discharge H&P will serve as current which was dated: 04/17/24 Day of Discharge: 04/19/24 Dietary and Speech Recommendations Dietitian Recommendations/Changes: Adjust to liberal regular, no added salt diet d/t poor PO intake. Will order fortified pudding BID with lunch and dinner to better meet estimated nutrition needs. Will monitor weight trends. Reviewed and approved by Ambika Choudhury RD, LD. Discharge Plan Admission Admit Date/Time: 04/17/24 07:28 Primary Reason for Your Visit: Pneumonia, influenza A, urinary tract infection Attending Provider: Trip Hamilton Primary Care Provider: Kaleb Mace Sr. Consulting Providers: [employer] Instructions Additional Instructions / Restrictions: Recommend a CT of the chest be obtained in 6 weeks due to a 1.8 cm nodular opacity over the right mid lung Discharge Orders/Prescriptions Prescriptions: New oseltamivir 30 mg Capsule 30 mg PO BID Qty: 5 0RF Rx Instructions: Continue for 5 more doses starting the evening of 04/19/2024 prednisone 20 mg tablet 40 mg PO DAILY Qty: 8 0RF Rx Instructions: Start on 04/20/2024, continue for 4 more days then discontinue amoxicillin-pot clavulanate 875-125 mg tablet 1 tab PO BID Qty: 9 0RF Rx Instructions: 1 twice a day with food for 9 doses starting the evening of 04/19/2024 Continued tramadol 50 mg tablet 50 mg PO BID acetaminophen 325 mg capsule 650 mg PO TID amlodipine 5 mg tablet 5 mg PO DAILY baclofen 10 mg tablet 10 mg PO TID beclomethasone dipropionate 40 mcg/actuation HFA aerosol breath activated 2 inh inhalation BID Rx Instructions: for sob, rinse mouth after use esomeprazole magnesium 20 mg capsule,delayed release(DR/EC) 20 mg PO DAILY furosemide 40 mg tablet 40 mg PO BID hydroxyzine pamoate 50 mg capsule 50 mg PO 4X/DAY PRN PRN (Reason: anxiety) Discontinued prednisone 5 mg tablet 5 mg PO DAILY Rx Instructions: start 04/17/24, end 04/19/24 Referrals / Follow Up: Kaleb Mace Sr., DO [Primary Care Provider] - Disposition Disposition (needs filled in before D/C Order can be placed): NonSkilled NH/Intermed Care
--- NOTE | 2024-04-19 15:56 | DS.PCM_ITS ---
Providers Date of Admission: 04/17/24 Date of Discharge: 04/19/24 Primary Care Physician: Dr. Kaleb Mace Sr., DO Reason For Visit: COPD EXACERBATION W/ HYPOXIA Diagnosis Discharge Diagnosis (1) Acute respiratory failure with hypoxia: Status: Acute Code(s): J96.01 - Acute respiratory failure with hypoxia (2) COPD with acute exacerbation: Status: Chronic Code(s): J44.1 - Chronic obstructive pulmonary disease with (acute) exacerbation (3) Influenza A: Status: Acute Code(s): J10.1 - Influenza due to other identified influenza virus with other respiratory manifestations Plan 1. Strep pneumoniae pneumonia #2 urinary tract infection with E. coli #3 influenza A infection #4 acute exacerbation of COPD #5 chronic mild cognitive impairment #6 chronic debility #7 chronic congestive heart failure with preserved ejection fraction #8 chronic hypoxic respiratory failure Medications at Discharge Home Medications acetaminophen 325 mg capsule 650 mg PO TID Pain 04/17/24 amlodipine 5 mg tablet 5 mg PO DAILY B/P 04/17/24 baclofen 10 mg tablet 10 mg PO TID Spasms 04/17/24 beclomethasone dipropionate 40 mcg/actuation HFA breath activated aerosol 2 inh inhalation BID Respitory 04/17/24 esomeprazole magnesium 20 mg capsule,delayed release 20 mg PO DAILY Reflux 04/17/24 tramadol 50 mg tablet 50 mg PO BID pain 04/17/24 furosemide 40 mg tablet 40 mg PO BID Edema 04/18/24 hydroxyzine pamoate 50 mg capsule 50 mg PO 4X/DAY PRN PRN anxiety 04/18/24 amoxicillin 875 mg-potassium clavulanate 125 mg tablet 1 tab PO BID #9 tabs 04/19/24 oseltamivir 30 mg capsule 30 mg PO BID #5 caps 04/19/24 prednisone 20 mg tablet 40 mg (2 x 20 mg) PO DAILY #8 tabs 04/19/24 Hospital Course Operations None Procedures None Summary of Care Provided Minutes Spent on Discharge: 32 Hospital Course: This 83-year-old white female was seen in the emergency room at [facility] after being transferred from a longterm for worsening shortness of breath with cough. Patient required 10 L high flow oxygen in the emergency room to maintain her oxygen saturation greater than 90%. She had a mild increased work of breathing, chest x-ray showed patchy opacities over the mid to lower lungs bilaterally concerning for atelectasis versus developing pneumonia. There is also a 1.8 cm nodular opacity over the right midlung field. Patient refused to undergo CT scan of the chest. Patient's influenza A test was positive. Patient was admitted to PCU for acute COPD exacerbation with acute hypoxic respiratory failure, she was placed on aerosol treatments and IV corticosteroids and Tamiflu. Patient improved during the hospitalization, her sputum culture finally resulted positive for strep pneumoniae. Urine culture was positive for E. coli. On 04/19/2024, patient was seen and examined: On examination she appeared in good health and spirits, she does not appear to be in any distress. Vital signs as documented. Skin warm and dry and without overt rashes. Neck without JVD, thyroid appears normal, trachea is midline, neck is supple. Lungs clear, normal air movement was noted. Heart exam notable for regular rhythm, normal sounds and absence of murmurs, rubs or gallops. Abdomen unremarkable and without evidence of organomegaly, masses, or abdominal aortic enlargement, bowel sounds are present in all 4 quadrants, no abdominal tenderness was noted. Extremities nonedematous, no cyanosis was noted, no clubbing was noted. Neuro: Cranial nerves II through XII are grossly intact, no focal motor deficits were noted, sensation to light touch and pinprick is intact, motor exam 5/5 throughout. Psych: Patient is alert and oriented x3, she does not appear anxious or depressed, she does not appear agitated. Patient required 2 L of oxygen continuously at rest and 3 L of oxygen with ambulation at the time of discharge on 04/19/2024. On 04/19/2024, patient was seen and examined and felt to be in stable condition for transfer back to her extended care facility for further care Weight / BMI Weight Weight: 91 kg Body Mass Index (BMI) 37.9 ABG / Lab / Microbiology Data 04/18/24 04:20 04/18/24 04:20 Microbiology: Microbiology 04/17/24 22:00 Sputum, Expectorated/Coughed Gram Stain - Final 04/17/24 22:00 Sputum, Expectorated/Coughed Respiratory Culture - Final Streptococcus pneumoniae 04/17/24 14:32 Urine, Catheterized Urine Culture - Final Escherichia coli 04/17/24 10:25 Mucosa - Nasopharyngeal Respiratory Panel (PCR) - Final Influenzae A 04/17/24 05:23 Mucosa - Nose SARS-CoV-2, Influenza & RSV (PCR) - Final D/C Instructions DC O2, CPAP, BIPAP Needs Home O2 Discharge instructions: Yes Type of respiratory needs?: Oxygen Oxygen frequency: Continuous Continuous oxygen liters per minute: 2 L and With Ambulation Oxygen liters per minute during Ambulation: 3 L DC home with Oxygen: Yes Home O2 MD Review: I have reviewed the oxygen testing, and the patient qualifies for home oxygen equipment and portability. The patient is mobile in the home and the community. Meaningful Use Info Meaningful Use Meaningful Use Diagnoses (Choose all that apply): None applicable Ischemic Stroke Statin Dosing Therapy Reference: STATIN DOSE THERAPY REFERENCE: * Patients > 75 years receive moderate or high dose statin therapy. * Patients 75 years or YOUNGER should receive HIGH intensity statin dose unless contraindicated. You will be required to document reason for non-treatment if statin daily dose does not meet guidelines. HIGH DOSE STATIN THERAPY DAILY Atorvastatin > than or = to 40 mg Rosuvastatin > than or = to 20 mg Amlodipine + Atorvastatin > than or = to 2.5/40 mg Ezetimibe + Simvastatin 10/80 mg Simvastatin 80mg Discharge Plan Admission Admit Date/Time: 04/17/24 07:28 Primary Reason for Your Visit: Pneumonia, influenza A, urinary tract infection Attending Provider: Trip Hamilton Primary Care Provider: Kaleb Mace Sr. Consulting Providers: [employer] Bender Instructions Additional Instructions / Restrictions: Recommend a CT of the chest be obtained in 6 weeks due to a 1.8 cm nodular opacity over the right mid lung Discharge Orders/Prescriptions Prescriptions: New oseltamivir 30 mg Capsule 30 mg PO BID Qty: 5 0RF Rx Instructions: Continue for 5 more doses starting the evening of 04/19/2024 prednisone 20 mg tablet 40 mg PO DAILY Qty: 8 0RF Rx Instructions: Start on 04/20/2024, continue for 4 more days then discontinue amoxicillin-pot clavulanate 875-125 mg tablet 1 tab PO BID Qty: 9 0RF Rx Instructions: 1 twice a day with food for 9 doses starting the evening of 04/19/2024 Continued tramadol 50 mg tablet 50 mg PO BID acetaminophen 325 mg capsule 650 mg PO TID amlodipine 5 mg tablet 5 mg PO DAILY baclofen 10 mg tablet 10 mg PO TID beclomethasone dipropionate 40 mcg/actuation HFA aerosol breath activated 2 inh inhalation BID Rx Instructions: for sob, rinse mouth after use esomeprazole magnesium 20 mg capsule,delayed release(DR/EC) 20 mg PO DAILY furosemide 40 mg tablet 40 mg PO BID hydroxyzine pamoate 50 mg capsule 50 mg PO 4X/DAY PRN PRN (Reason: anxiety) Discontinued prednisone 5 mg tablet 5 mg PO DAILY Rx Instructions: start 04/17/24, end 04/19/24 Referrals / Follow Up: Rodri David,DO Kaleb [Primary Care Provider] - Disposition Disposition (needs filled in before D/C Order can be placed): NonSkilled NH/Intermed Care Charges/Coding Visit Charges Inpatient E&M: 94498 Disch Hosp >30min
--- NOTE | 2024-04-19 16:36 | CASEMGMT ---
Discharge orders, signed med list, and transport time sent to [facility]. Physicians will transport patient by wheelchair (cot may be sent) at 7:30p. Nursing, SW, pt, and her daughter (Ambika) updated. Shayna Kraus DC Planning Asst.
--- NOTE | 2024-04-19 17:27 | NURSING ---
Report called to JR Gallagher at [phone].
== END 2024-04-19 19:37 | disposition intermediate care facility (04) | DRG 189 ==
LOC: ED 07:39 → PCU 08:32
PROVIDERS: Admitting Provider Hospitalist; Emergency Provider Emergency Medicine; PCP Internal Medicine; Visit Provider Internal Medicine
DX: J96.21 Acute and chronic respiratory failure with hypoxia (principal); J10.08 Influenza due to other identified influenza virus with other specified pneumonia; J13 Pneumonia due to Streptococcus pneumoniae; I50.32 Chronic diastolic (congestive) heart failure; J44.1 Chronic obstructive pulmonary disease with (acute) exacerbation; J44.0 Chronic obstructive pulmonary disease with (acute) lower respiratory infection; N39.0 Urinary tract infection, site not specified; Z66 Do not resuscitate; I11.0 Hypertensive heart disease with heart failure; E03.9 Hypothyroidism, unspecified; Z68.37 Body mass index [BMI] 37.0-37.9, adult; G31.84 Mild cognitive impairment of uncertain or unknown etiology; B96.20 Unspecified Escherichia coli [E. coli] as the cause of diseases classified elsewhere; Z11.52 Encounter for screening for COVID-19; R53.81 Other malaise; G89.4 Chronic pain syndrome; Z79.52 Long term (current) use of systemic steroids; E66.812 Obesity, class 2; Z79.891 Long term (current) use of opiate analgesic; Z79.899 Other long term (current) drug therapy
CPT/HCPCS: 36415; 36600; 71045; 80048; 81002; 82803; 83735; 83880; 84145; 85025; 85027; 87070; 87077; 87086; 87088; 87186; 87205; 87631; 87633; 94640; 94668; 97110; 97116; 97162; 97166; 97535; 99252; 99284; A4216; G0463; J1940

== ENCOUNTER → 2024-08-18 04:00 | Outpatient (REF) | payer MEDICARE, SELFPAY ==
--- OUTSIDE RECORDS SUMMARY | 2024-08-18 03:37 | XMS RPT_ITS | CCD ---
Author Organization [facility] Care Team Providers Care Liquor Tester Name Role Phone Angelo Goyal Unavailable UnavailAri Arnett Unavailable Ari Casanova Unavailable Angelo Luke Unavailable Unavaila Ari Espinoza Unavailable Kellie MCCARTY MD, DR EMILY Paul Primary Care Physician [phone] Dr. Ari Cervantes Primary Care Un jewel Negrete, Dr. Davon Rodriguez Attending UnavailJenni Giron Unavailable Alix MCCARTY MD, DR EMILY Paul Primary Care Unavailab Kristin PAREDES, WAQAS Admitting Unavailable ILAN PAREDES, WAQAS Attending Alix MCCARTY MD, DR EMILY Paul Consulting Unavailab Phuong PAREDES, DR JAZMINE Gatica Consulting Unavailable BIBIANA PAREDES, DR EMILY Paul Primary Care Unavailab Laura PAREDES, DAVON Attending Unavailable BIBIANA PAREDES, DR EMILY Paul Primary Care Unavailab Ge PAREDES, DR EMILY Paul Attending Riaz Villasenor MD, DR EMILY Paul Primary Care Unavailab Ge PAREDES, DR EMILY Paul Attending Riaz Villasenor MD, DR EMILY Paul Primary Care Unavailab Laura PAREDES, DAVON Attending Alix MCCARTY MD, DR EMILY Paul Primary Care Unavailab Ge PAREDES, DR EMILY Paul Attending Riaz Villasenor MD, DR EMILY Paul Attending Riaz Villasenor MD, DR EMILY Paul Primary Care Unavailab Ge PAREDES, Emily Paul Primary Care Provider EMILY MCCARTY Primary Care Unavailable QAMAR CONKLIN Attending Unavailable EMILY MCCARTY Primary Care Unavailable MARY WISEMAN Admitting Unavailabl e EDUARDA BRADEN Attending Unavailable EMILY MCCARTY Primary Care Unavailable RASCONPORTIA Admitting Unavailable ILIANA PALENCIA Attending Unavailable Deperro OLS, Kaleb Attending Unavailable Deperro OLS, Kaleb Referring Unavailable Deperro OLS, Kaleb Attending Unavailable Deperro OLS, Kaleb Attending Unavailable Deperro OLS, Kaleb Attending Unavailable Deperro Sr., Kaleb Primary Care Unavailable Tacos Bender Consulting Unavailable Tacos Bender Admitting Unavailable Trip Hamilton Attending Unavailable Deperro OLS, Kaleb Attending Unavailable Deperro OLS, Kaleb Attending Unavailable Deperro OLS, Kaleb Referring Unavailable Deperro Sr., Kaleb Primary Care Unavailable Tacos Bender Attending Unavailable Tacos Bender Consulting Unavailable Tacos Bender Admitting Unavailable Trip Hamilton Attending Unavailable Trip Hamilton Consulting Unavailable Deperro OLS, Kaleb Attending Unavailable ARTUR NERI Consulting Unavailable TATE GIVENS Admitting Unavailable HELEN WAN Attending Unavailable Unavailable Primary Care Provider Unavailabl e Allergies Allergy Classification Reported Allergen(s) Allergy Type Date of Onset Reaction(s) Facility (4 sources) Acetaminophen / oxyCODONE; Translations: [acetaminophen-ox ycodone] Drug Allergy [facility] (4 sources) Aspartame Drug Allergy [facility] (20 sources) Codeine; Translations: [codeine] Drug Allergy 01-19-20 19 Rash [facility] (18 sources) LORazepam; Translations: [lorazepam] Drug Allergy 01-19-20 Mental Status Change [facility] (20 sources) Morphine; Translations: [morphine] Drug Allergy 01-19-20 Hives [facility] (4 sources) PENTobarbital; Translations: [pentobarbital] Drug Allergy [facility] (4 sources) zolpidem; Translations: [zolpidem] Drug Allergy [facility] (2 sources) Tape, plastic Allergy to substance Eruption of skin (disorder) [facility] (14 sources) Aspartame; Translations: [ASPARTAME] Drug Allergy 09-21-19 Other: See Comments [facility] (14 sources) Aspirin / oxyCODONE Hydrochloride / oxyCODONE terephthalate; Translations: [OXYCODONE [id number] ] Drug Allergy 01-19-20 Unknown [facility] (17 sources) DULoxetine; Translations: [DULOXETINE] Drug Allergy 01-19-20 Mental Status Change, Unknown [facility] (14 sources) Adhesive Tape-Silicones; Translations: [ADHESIVE TAPE-SILICONES] Drug Allergy 01-19-20 Itching [facility] (1 source) Adhesive Tape Drug allergy (disorder) 04-17-19 [facility] (1 source) Aspartame Drug Allergy 04-17-19 25 [facility] (1 source) DULoxetine Drug Allergy 04-17-19 25 [facility] (1 source) LORazepam Drug Allergy 04-17-19 25 [facility] (1 source) Morphine Drug Allergy 04-17-19 25 [facility] (1 source) oxyCODONE Drug Allergy 04-17-19 25 [facility] (3 sources) Aspartame Drug Allergy 08-04-19 25 [facility] (3 sources) Lorazepam Propensity to adverse reactions 08-04-19 25 [facility] (3 sources) oxyCODONE Drug Allergy 08-04-19 [facility] (3 sources) Wound Dressing Adhesive Propensity to adverse reactions 08-04-19 [facility] Medications Current Medications Medication Drug Class(es) Dates Sig (Normalized) Sig (Original) Albuterol (Eqv-Proventil HFA) 90 mcg/inh inhalation aerosol (2 sources) Start: 04-02-2022 Albuterol (Eqv-Proventil HFA) 90 mcg/inh inhalation aerosol 2 inh, Inhalation, QID, PRN NEEDED FOR WHEEZING, # 26.8 gram(s), 3 Refill(s), Pharmacy: [facility]), 152, cm, 02/21/22 13:28:00 EST, Height, kg, 02/21/22 13:28:00 EST, Dosing Weight Start Date: 04/02/22 Status: Ordered albuterol 0.833 mg/ml / ipratropium bromide 0.167 mg/ml inhalation solution (13 sources) Anticholinergic, beta2-Adrenergic Agonist Start: 08-04-2024 End: 02-13-2025 ipratropium-albuter ol (Duo-Neb) 0.5-2.5 mg/3 mL nebulizer solution Indications: COPD exacerbation (HCC) Take 3 mL by nebulization every 4 hours as needed (cough). 08/11/2024 02/13/2025 Active Start: 08-03-2024 9 mL, Nebuliza tion, Once, On Fri08/03/24 at 1705, For 1 dose Start: 02-01-2024 End: 08-11-2024 take 3 mL by inhalation every four hours as needed ipratropium-albuterol (Duo-Neb) 0.5-2.5 mg/3 mL nebulizer solution Inhale 3 mL every 4 hours as needed (cough). 02/01/2024 08/11/2024 Discontinued Start: 02-16-2022 take 1 dose by inhal ation four times daily albuterol-ipratropium 2.5 mg-0.5 mg/3 mL inhalation solution Dose = 3 mL, Inhalation, QID, # 30 EA, 3 Refill(s), Pharmacy: [facility] #[id number], 155, cm, 02/12/22 22:07:00 EST, Height, kg, 02/12/22 22:07:00 EST, Dosing Weight Start Date: 02/16/22 Status: Ordered Start: 10-31-2020 take 1 dose by inhal ation four times daily albuterol-ipratropium 2.5 mg-0.5 mg/3 mL inhalation solution Dose = 3 mL, Inhalation, QID, # 30 EA, 3 Refill(s), Pharmacy: [facility] #[id number], 152, cm, 09/05/20 14:17:00 EDT, Height, kg, 09/05/20 14:17:00 EDT, Dosing Weight Start Date: 10/31/20 Status: Ordered amLODIPine 5 mg oral tablet (20 sources) Dihydropyridine Calcium Channel Chelita Start: 07-01-2023 End: 08-11-2024 take 1 tablet by mouth every twenty-four hours amLODIPine (Norvasc) 5 MG tablet Take 5 mg by mouth Every 24 hours. 07/01/2023 Active Start: 01-18-2019 take 1 tablet by shahzad th once daily amLODIPine (NORVASC) 5 mg tablet Take 5 mg by mouth once daily. 01/18/2019 Active amoxicillin 875 mg / clavulanate 125 mg oral tablet (1 source) Penicillin-class Antibacterial Start: 02-16-2022 End: 02-22-2022 take 1 tablet by mouth every twelve hours amoxicillin-clavulanate 875 mg-125 mg oral tablet 1 tab(s), Oral, q12h, X 6 day(s), # 12 tab(s), 0 Refill(s), 02/22/22 13:58:00 EST, Pharmacy: [facility] #[id number], 155, cm, 02/12/22 22:07:00 EST, Height, 102.3 Start Date: 02/16/22 Stop Date: 02/22/22 Status: Ordered ampicillin 500 mg oral capsule (1 source) Penicillin-class Antibacterial Start: 01-22-2021 End: 01-29-2021 ampicillin 500 mg oral capsule Dose : 500 mg = 1 cap(s), Oral, QID, X 7 day(s), # 28 cap(s), 0 Refill(s), 01/29/21 13:28:00 EST, Pharmacy: [facility] #[id number], Recurrent UTI OAB (overactive bladder), 155, cm, 01/22/21 13:03:00 EST, Height, 100.5, kg, 01/22/21 13:03:00 EST... Start Date: 01/22/21 Stop Date: 01/29/21 Status: Ordered aspirin 325 mg delayed release oral tablet (4 sources) Platelet Aggregation Inhibitor, Nonsteroidal Anti-inflammatory Drug Start: 01-21-2018 aspirin 325 mg oral delayed release tablet Dose : 325 mg = 1 tab(s), Oral, qDay, 0 Refill(s) Start Date: 01/21/18 Status: Ordered Start: 01-21-2018 aspirin 325 mg oral delayed release tablet Dose : 325 mg = 1 tab(s), Oral, qDay, 0 Refill(s) Start Date: 01/21/18 Status: Ordered baclofen 10 mg oral tablet (20 sources) gamma-Aminobutyric Acid-ergic Agonist Start: 11-11-2023 take 1 tablet by mouth every eight hours baclofen (Lioresal) 10 MG tablet Take 10 mg by mouth every 8 hours. 11/11/2023 Active Start: 09-22-2023 take 1 tablet by [facility] every eight hours as needed baclofen 10 mg tablet Take 1 tablet by mouth three times a day as needed. 09/22/2023 Active Start: 01-27-2023 take 1 tablet by shahzad three times daily baclofen 10 mg oral tablet 1 tab(s), Oral, TID, # 270 tab(s), 2 Refill(s), Pharmacy: [facility], 152, cm, 10/28/22 14:22:00 EDT, Height, kg, 10/28/22 14:22:00 EDT, Dosing Weight Start Date: 01/27/23 Status: Ordered Start: 01-28-2022 take 1 tablet by shahzad three times daily baclofen 10 mg oral tablet See Instructions, TAKE 1 TABLET BY MOUTH THREE TIMES DAILY, # 90 tab(s), 0 Refill(s), Pharmacy: [facility]), 155, cm, 01/23/22 15:18:00 EST, Height, kg, 01/23/22 15:18:00 EST, Dosing Weight Start Date: 01/28/22 Status: Ordered Start: 10-08-2020 take 1 tablet by [facility] three times daily baclofen 10 mg oral tablet See Instructions, TAKE 1 TABLET BY MOUTH THREE TIMES DAILY, # 90 tab(s), 2 Refill(s), Pharmacy: [facility] #[id number], 152, cm, 09/05/20 14:17:00 EDT, Height, kg, 09/05/20 14:17:00 EDT, Dosing Weight Start Date: 10/08/20 Status: Ordered breath-actuated 120 actuat beclomethasone dipropionate 0.04 mg/actuat metered dose inhaler (17 sources) Corticosteroid Start: 06-11-2023 take 1 dose by inhalation twice daily Qvar Redihaler 40 mcg/inh inhalation aerosol Dose = 1 puff(s), Inhalation, BID, # 10.6 gram(s), 4 Refill(s), Pharmacy: [facility], 152.4, cm, 05/15/23 13:11:00 EST, Height, kg, 05/15/23 13:11:00 EST, Dosing Weight Start Date: 06/11/23 Status: Ordered Start: 06-11-2023 beclomethasone HFA (Qvar) 40 MCG/ACT inhaler Inhale 40 mcg every 12 hours. 06/11/2023 Active Start: 06-11-2023 take 2 puff(s) by in halation twice daily beclomethasone (QVAR REDIHALER) 40 mcg/actuation inhaler Inhale 2 Puffs as instructed two times a day. 06/11/2023 Active benzonatate 100 mg oral capsule (16 sources) Non-narcotic Antitussive Start: 09-22-2023 take 1 capsule by mouth three times daily as needed for cough benzonatate (Tessalon) 100 MG capsule Take 100 mg by mouth 3 times daily as needed for cough. 09/22/2023 Active bisacodyl 10 mg rectal suppository (3 sources) Stimulant Laxative Start: 11-11-2023 take 10 mg rectal route every twenty-four hours as needed for constipation bisacodyl (Dulcolax) 10 MG suppository Insert 10 mg into the rectum Daily as needed for constipation. 11/11/2023 Active clotrimazole 10 mg/ml topical cream (3 sources) Azole Antifungal Start: 06-12-2021 clotrimazole 1% topical cream Apply 1 vidhya, Topical, BID, PRN Rash, # 30 gram(s), 3 Refill(s), Pharmacy: [id number], 152, cm, 02/08/21 13:40:00 EST, Height, 101.2, kg, 02/08/21 13:40:00 EST, Dosing Weight Start Date: 06/12/21 Status: Ordered Start: 09-05-2020 clotrimazole 1 % topical cream Apply 1 vidhya, Topical, BID, PRN Rash, # 30 gram(s), 0 Refill(s), Pharmacy: [facility] #[id number], 152, cm, 09/05/20 14:17:00 EDT, Height, 97.2, kg, 09/05/20 14:17:00 EDT, Dosing Weight Start Date: 09/05/20 Status: Ordered Co-Q10 (1 source) Start: 08-13-2018 take 1 dose by mouth once daily Co-Q10 Dose : 10 mg =, Oral, qDay, 0 Refill(s) Start Date: 08/13/18 Status: Ordered DULoxetine 20 mg delayed release oral capsule (2 sources) Serotonin and Norepinephrine Reuptake Inhibitor Start: 01-23-2022 DULoxetine 20 mg oral delayed release capsule Dose : 20 mg = 1 cap(s), Oral, qDay, # 30 cap(s), 0 Refill(s), other reason (Rx) Start Date: 01/23/22 Status: Ordered Start: 12-11-2020 DULoxetine 30 mg oral delayed release capsule Dose : 30 mg = 1 cap(s), Oral, qDay, # 30 cap(s), 1 Refill(s), Pharmacy: [facility] #[id number], Medicare annual wellness visit, subsequent COPD (chronic obstructive pulmonary disease), 152, cm, 12/11/20 14:39:00 EDT, Height, kg, 12/11/20 14:39... Start Date: 12/11/20 Status: Ordered escitalopram 10 mg oral tablet (5 sources) Serotonin Reuptake Inhibitor Start: 05-01-2024 End: 08-11-2024 take 1 tablet by mouth once daily escitalopram (Lexapro) 10 MG tablet Take 10 mg by mouth Nightly. 05/01/2024 Active esomeprazole 20 mg delayed release oral tablet (20 sources) Proton Pump Inhibitor Start: 11-12-2023 take 1 tablet by mouth every twenty-four hours Esomeprazole Magnesium 20 MG tablet delayed-release Take 20 mg by mouth Every 24 hours. 11/12/2023 Active Start: 06-18-2023 NexIUM 20 mg o ral delayed release capsule Dose : 20 mg = 1 cap(s), Oral, qDay, 0 Refill(s) Start Date: 06/18/23 Status: Ordered Start: 03-06-2020 take 1 dose by mouth once gio y NexIUM Dose : 20 mg =, Oral, qDay, 0 Refill(s) Start Date: 03/06/20 Status: Ordered Start: 03-06-2020 NexIUM Oral, q Day, 0 Refill(s) Start Date: 03/06/20 Status: Ordered take 1 capsule by [facility] once daily esomeprazole magnesium (NEXIUM ORAL) Take 1 capsule by mouth once daily. 0 Active Eucerin topical cream (1 source) Start: 01-23-2022 Eucerin topica l cream Apply 1 vidhya, Topical, BID, PRN as needed for dry skin, # 120 gram(s), 0 Refill(s), Pharmacy: [facility], Cream, 155, cm, 01/23/22 15:18:00 EST, Height, 100.7 Start Date: 01/23/22 Status: Ordered Fish Oils (5 sources) Start: 04-08-2022 Fish Oil 1000 mg oral capsule Dose : 1,000 mg = 1 cap(s), Oral, qDay, # 90 cap(s), 0 Refill(s) Start Date: 04/08/22 Status: Ordered Start: 01-25-2020 omega-3 fish o il 1000 mg oral capsule Dose : 1,000 mg = 1 cap(s), Oral, BID, 0 Refill(s) Start Date: 01/25/20 Status: Ordered Start: 01-25-2020 omega-3 fish o il 1000 mg oral capsule Dose : 1,000 mg = 1 cap(s), Oral, qDay, # 90 cap(s), 0 Refill(s) Start Date: 01/25/20 Status: Ordered flax seed oil 1000 mg oral capsule (4 sources) Start: 08-13-2018 take 1 capsule by mouth once daily flax seed oil 1000 mg oral capsule 1 cap(s), Oral, qDay, 0 Refill(s) Start Date: 08/13/18 Status: Ordered Start: 08-13-2018 flax seed oil 1000 mg oral capsule Dose : 1,000 mg = 1 cap(s), Oral, qDay, 0 Refill(s) Start Date: 08/13/18 Status: Ordered Flovent HFA 44 mcg/inh inhalation aerosol (1 source) Start: 10-12-2020 take 2 puff(s) by mouth twice daily Flovent HFA 44 mcg/inh inhalation aerosol See Instructions, INHALE 2 PUFFS BY MOUTH TWICE DAILY, # 31.8 gram(s), 5 Refill(s), Pharmacy: [facility] #[id number], 152, cm, 09/05/20 14:17:00 EDT, Height, kg, 09/05/20 14:17:00 EDT, Dosing Weight Start Date: 10/12/20 Status: Ordered 120 actuat fluticasone propionate 0.044 mg/actuat metered dose inhaler (3 sources) Corticosteroid Start: 06-12-2022 Flovent HFA 44 mcg/inh inhalation aerosol 2 inh, Inhalation, BID, # 31.8 gram(s), 11 Refill(s), Pharmacy: [facility]), 152.4, cm, 05/14/22 16:04:00 EST, Height, kg, 05/14/22 16:04:00 EST, Dosing Weight Start Date: 06/12/22 Status: Ordered Start: 04-08-2022 take 2 puff(s) by in halation twice daily Flovent HFA 44 mcg/inh inhalation aerosol 2 puff(s), Inhalation, BID, 0 Refill(s) Start Date: 04/08/22 Status: Ordered Start: 07-24-2021 Flovent HFA 44 mcg/inh inhalation aerosol 2 inh, Inhalation, BID, # 31.8 gram(s), 3 Refill(s), Pharmacy: [facility], 152, cm, 07/12/21 13:08:00 EDT, Height, kg, 07/12/21 13:08:00 EDT, Dosing Weight Start Date: 07/24/21 Status: Ordered hydroCHLOROthiazide 25 mg oral tablet (12 sources) Thiazide Diuretic Start: 01-18-2019 take 1 tablet by mouth once daily hydroCHLOROthiazide 25 mg tablet Take 25 mg by mouth once daily. 0 01/18/2019 Active labetalol hydrochloride 200 mg oral tablet (20 sources) beta-Adrenerg ic Chelita Start: 11-12-2023 End: 08-11-2024 take 1 tablet by mouth every twenty-fou r hours labetalol (Normodyne) 200 MG tablet Take 200 mg by mouth Every 24 hours. 11/12/2023 Active Start: 06-04-2023 take 1 tablet by shahzad th once daily labetalol (TRANDATE) 200 mg tablet Take 200 mg by mouth once daily. 06/04/2023 Active Start: 02-15-2022 End: 02-15-2022 labetalol Start: 02/15/22 21 :00:00 EST, Dose = 200 mg, = 1 tab(s), Oral, 0, 02/12/22 23:19:00 EST Start Date: 02/15/22 Stop Date: 02/15/22 Status: Completed Start: 02-14-2022 End: 02-14-2022 labetalol Start: 02/14/22 21 :00:00 EST, Dose = 200 mg, = 1 tab(s), Oral, 0, 02/12/22 23:19:00 EST Start Date: 02/14/22 Stop Date: 02/14/22 Status: Completed Start: 08-07-2021 take 1 tablet by shahzad th once daily labetalol 200 mg oral tablet 1 tab(s), Oral, qDay, # 90 tab(s), 3 Refill(s), Pharmacy: [facility], 152, cm, 07/12/21 13:08:00 EDT, Height, kg, 07/12/21 13:08:00 EDT, Dosing Weight Start Date: 08/07/21 Status: Ordered Start: 10-26-2020 take 1 tablet by shahzad th once daily labetalol 200 mg oral tablet See Instructions, TAKE 1 TABLET BY MOUTH EVERY DAY, # 90 tab(s), 1 Refill(s), Pharmacy: [facility] #[id number], 152, cm, 09/05/20 14:17:00 EDT, Height, kg, 09/05/20 14:17:00 EDT, Dosing Weight Start Date: 10/26/20 Status: Ordered levothyroxine sodium 0.137 mg oral tablet (20 sources) l-Thyroxine Start: 11-12-2023 End: 08-11-2024 take 1 tablet by mouth every twenty-four hours levothyroxine (Synthroid, Levoxyl) 137 MCG tablet Take 1 tablet by mouth Every 24 hours. 11/12/2023 Active Start: 03-12-2022 End: 12-07-2022 take 1 tablet by mouth once daily levothyroxine 175 mcg (0.175 mg) oral tablet 1 tab(s), Oral, qDay, # 100 tab(s), 3 Refill(s), [facility] 155, cm, 07/25/22 13:05:00 EDT, Height, kg, 07/25/22 13:05:00 EDT, Dosing Weight Start Date: 07/30/22 Status: Ordered Start: 08-13-2021 End: 10-12-2021 levothyroxine 175 mcg (0.175 mg) oral tablet Dose : 175 mcg = 1 tab(s), Oral, qDay, # 30 tab(s), 1 Refill(s), Pharmacy: [facility], Hypothyroidism, 155, cm, 08/13/21 14:43:00 EDT, Height, kg, 08/13/21 14:43:00 EDT, Dosing Weight Start Date: 08/13/21 Stop Date: 10/12/21 Status: Ordered Start: 09-14-2020 take 1 tablet by shahzad th once daily levothyroxine 150 mcg (0.15 mg) oral tablet See Instructions, TAKE 1 TABLET BY MOUTH EVERY DAY EXCEPT ON FRIDAY, # 79 tab(s), 3 Refill(s), Pharmacy: [facility] #[id number], 152, cm, 09/05/20 14:17:00 EDT, Height, kg, 09/05/20 14:17:00 EDT, Dosing Weight Start Date: 09/14/20 Status: Ordered levothyroxine (S YNTHROID) 150 mcg tablet Take 137 mcg by mouth daily before breakfast. Active take 1 tablet by shahzad th once daily levothyroxine (SYNTHROID) 150 mcg tablet Take 150 mcg by mouth once daily. 0 Active loperamide hydrochloride 2 mg oral tablet (3 sources) Opioid Agonist Start: 04-20-2024 take 1 tablet by mouth every four hours as needed for diarrhea loperamide (Imodium A-D) 2 MG tablet Take 2 mg by mouth every 4 hours as needed for diarrhea. 04/20/2024 Active Magnesium Chloride With Calcium 64 mg-112 mg oral delayed release tablet (1 source) Start: 11-15-2021 take 1 tablet by mouth twice daily Magnesium Chloride With Calcium 64 mg-112 mg oral delayed release tablet Dose = 1 tab(s), Oral, BID, # 60 tab(s), 0 Refill(s) Start Date: 11/15/21 Status: Ordered meloxicam 15 mg oral tablet (1 source) Nonsteroidal Anti-inflammatory Drug Start: 08-13-2021 Mobic 15 mg oral tablet Dose : 15 mg = 1 tab(s), Oral, qDay, PRN Joint pain, # 30 tab(s), 2 Refill(s), Pharmacy: [facility], 155, cm, 08/13/21 14:43:00 EDT, Height Start Date: 08/13/21 Status: Ordered metoclopramide 5 mg oral tablet (4 sources) Dopamine-2 Receptor Antagonist Start: 06-05-2023 take 1 tablet by mouth three times daily, then take 2 tablets by mouth at bedtime metoclopramide 5 mg oral tablet 1 tab(s), Oral, TID, 30 MINUTES BEFORE 2 MEALS AND AT BEDTIME, # 300 tab(s), 0 Refill(s), Pharmacy: [facility], 152.4, cm, 05/15/23 13:11:00 EST, Height, kg, 05/15/23 13:11:00 EST, Dosing Weight Start Date: 06/05/23 Status: Ordered Start: 01-28-2022 take 1 tablet by shahzad th three times daily, then take 2 tablets by mouth at bedtime metoclopramide 5 mg oral tablet See Instructions, TAKE 1 TABLET BY MOUTH 3 TIMES DAILY (30 MINUTES BEFORE 2 MEALS AND AT BEDTIME)., # 270 tab(s), 1 Refill(s), [facility]: [facility]), 155, cm, 01/23/22 15:18:00 EST, Height, kg, 01/23/22 15:18:00 EST,... Start Date: 01/28/22 Status: Ordered Start: 12-19-2020 take 1 tablet by shahzad th three times daily before mealtime metoclopramide 5 mg oral tablet See Instructions, TAKE 1 TABLET BY MOUTH THREE TIMES DAILY BEFORE MEALS, # 270 tab(s), 0 Refill(s), Pharmacy: [facility] #[id number], 152, cm, 12/11/20 14:39:00 EDT, Height, kg, 12/11/20 14:39:00 EDT, Dosing Weight Start Date: 12/19/20 Status: Ordered 24 hr mirabegron 25 mg extended release oral tablet (20 sources) beta3-Adrenergic Agonist Start: 02-12-2023 End: 08-11-2024 take 1 tablet by mouth once daily, then take 1 tablet by mouth every twenty-four hours mirabegron ER (Myrbetriq) 25 MG 24 hr tablet Take 25 mg by mouth daily. 02/12/2023 Active Start: 08-07-2021 take 2 tablets by [facility] once daily Myrbetriq 25 mg oral tablet, extended release 2 tab(s), Oral, qDay, # 180 tab(s), 3 Refill(s), Pharmacy: [facility], 152, cm, 07/12/21 13:08:00 EDT, Height, kg, 07/12/21 13:08:00 EDT, Dosing Weight Start Date: 08/07/21 Status: Ordered Start: 12-11-2020 take 2 tablets by [facility] once daily Myrbetriq 25 mg oral tablet, extended release See Instructions, TAKE 2 TABLET BY MOUTH EVERY DAY, # 90 tab(s), 1 Refill(s), other reason (Rx), Dosing Weight Start Date: 12/11/20 Status: Ordered Start: 12-11-2020 take 25 mg by mouth twice gio y MYRBETRIQ 25 mg Tb24 Take 25 mg by mouth two times a day. 12/11/2020 Active Dbppd-7-KMJ-EPA-Fish Oil (FI SH OIL) 1,000 mg (120 mg-180 mg) cap (13 sources) take 1 capsule by mouth twice daily Pmvox-8-QAC-EPA-Fish Oil (FISH OIL) 1,000 mg (120 mg-180 mg) cap Take 4 g by mouth two times a day. Active take 1 capsule by mouth twice da horace Bymzg-2-MLL-EPA-Fish Oil (FISH OIL) 1,000 mg (120 mg-180 mg) cap Take 4 g by mouth two times a day. 0 Active omeprazole 20 mg delayed release oral capsule (4 sources) Proton Pump Inhibitor Start: 02-11-2023 take 1 capsule by mouth once daily at bedtime omeprazole 20 mg oral delayed release capsule 1 cap(s), Oral, qHS, # 100 cap(s), 3 Refill(s), Pharmacy: [facility], 152, cm, 02/03/23 13:41:00 EST, Height, kg, 02/03/23 13:41:00 EST, Dosing Weight Start Date: 02/11/23 Status: Ordered Start: 01-16-2022 take 1 capsule by [facility] once daily at bedtime omeprazole 20 mg oral delayed release capsule 1 cap(s), Oral, qHS, # 90 cap(s), 3 Refill(s), Pharmacy: [facility]), 155, cm, 11/15/21 13:53:00 EDT, Height, kg, 11/15/21 13:53:00 EDT, Dosing Weight Start Date: 01/16/22 Status: Ordered Start: 12-09-2019 omeprazole 20 mg oral delayed release capsule Dose : 20 mg = 1 cap(s), Oral, qHS, # 90 cap(s), 4 Refill(s), Pharmacy: [facility] #[id number], 155, cm, 10/18/19 15:42:00 EDT, Height, kg, 10/18/19 15:42:00 EDT, Dosing Weight Start Date: 12/09/19 Status: Ordered ondansetron 4 mg oral tablet (3 sources) Serotonin-3 Receptor Antagonist Start: 04-20-2024 take 1 tablet by mouth every eight hours as needed for nausea and vomiting ondansetron (Zofran) 4 MG tablet Take 4 mg by mouth every 8 hours as needed for nausea or vomiting. 04/20/2024 Active oseltamivir 75 mg oral capsule (1 source) Neuraminidase Inhibitor Start: 02-16-2022 End: 02-17-2022 Tamiflu 75 mg oral capsule Dose : 75 mg = 1 cap(s), Oral, BID, X 1 day(s), # 2 cap(s), 0 Refill(s), 02/17/22 13:59:00 EST, Pharmacy: [facility] #[id number], 155, cm, 02/12/22 22:07:00 EST, Height Start Date: 02/16/22 Stop Date: 02/17/22 Status: Ordered prednisoLONE acetate 10 mg/ml ophthalmic suspension (13 sources) Corticosteroid Start: 08-21-2023 prednisoLONE acetate (PRED FORTE) 1 % ophthalmic suspension 08/21/2023 Active predniSONE 10 mg oral tablet (6 sources) Start: 08-12-2024 End: 08-16-2024 predniSONE (Deltasone) 10 MG tablet Take 2 tablets (20 mg) by mouth daily for 2 days, THEN 1 tablet (10 mg) daily for 2 days. Do not start before August 12, 2024. 6 tablet 08/12/2024 08/16/2024 Active Start: 08-12-2024 End: 08-11-2024 take 10 mg by mouth once daily 10 mg, Oral, Daily, [facility] dose on Rita 08/12/24 at 0900, For 2 doses Start: 08-12-2024 End: 08-11-2024 take 10 mg by mouth once daily 10 mg, Oral, Daily, [facility] dose on Rita 08/12/24 at 0900, For 2 doses Start: 02-16-2022 End: 02-25-2022 take 1 tablet by mouth once daily prednisone 20mg tab (TAPER) Taper 60-40-20 mg x 3 days each dose, Oral, Daily, X 9 day(s), # 18 tab(s), 0 Refill(s), 02/25/22 14:00:00 EST, Pharmacy: [facility] #[id number], 155, cm, 02/12/22 22:07:00 EST, Height Start Date: 02/16/22 Stop Date: 02/25/22 Status: Ordered Prescription MISCellaneous (2 sources) Start: 10-22-2021 Prescription MISCellaneous See Instructions, Medihoney--aplly once daily to wound., # 1 EA, 1 Refill(s), Pharmacy: [facility], 152, cm, 10/22/21 14:47:00 EDT, Height, 102.6 Start Date: 10/22/21 Status: Ordered Prevagen tablet (3 sources) Start: 07-12-2021 take 1 tablet by mouth once daily Prevagen tablet Dose = 1 tab(s), Oral, Daily, # 30 tab(s), 0 Refill(s), other reason (Rx) Start Date: 07/12/21 Status: Ordered Probiotic (4 sources) Start: 01-25-2020 take 1 capsule by mouth once daily Probiotic Dose = 1 cap(s), Oral, qDay, 0 Refill(s) Start Date: 01/25/20 Status: Ordered Start: 01-25-2020 Probiotic 1 qd , 0 Refill(s) Start Date: 01/25/20 Status: Ordered Konsyl (1 source) Start: 06-20-2023 take 1 dose by mouth twice daily as needed for constipation Konsyl Dose = 1 pkt, Oral, BID, PRN Constipation, 0 Refill(s) Start Date: 06/20/23 Status: Ordered Mylicon (1 source) Start: 06-20-2023 Mylicon Dose : 80 mg = 1 tab(s), Chewed, TID, PRN Gas, 0 Refill(s) Start Date: 06/20/23 Status: Ordered traZODone hydrochloride 50 mg oral tablet (5 sources) Serotonin Reuptake Inhibitor Start: 06-01-2024 End: 08-11-2024 take 1 tablet by mouth once daily traZODone (Desyrel) 50 MG tablet Take 50 mg by mouth Nightly. 06/01/2024 Active Vitamin C 500 mg oral tablet (2 sources) Start: 04-08-2022 Vitamin C 500 mg oral tablet Dose : 500 mg = 1 tab(s), Oral, qDay, # 30 tab(s), 0 Refill(s) Start Date: 04/08/22 Status: Ordered Vitamin D3 (3 sources) Start: 01-25-2020 Vitamin D3 1000IU, Oral, qDay, 0 Refill(s) Start Date: 01/25/20 Status: Ordered Start: 01-25-2020 Vitamin D3 Dos e : 125 mcg =, qDay, 0 Refill(s) Start Date: 01/25/20 Status: Ordered Vitamin D3 25 mcg (1000 intl units) oral capsule (1 source) Start: 06-18-2023 Vitamin D3 25 mcg (1000 intl units) oral capsule Dose : 25 mcg = 1 cap(s), Oral, qDay, 0 Refill(s) Start Date: 06/18/23 Status: Ordered wheat dextrin 3000 mg powder for oral solution (3 sources) Start: 07-12-2021 take 1 dose by mouth twice daily as needed for constipation Benefiber oral powder for reconstitution Dose = 5 mL, Oral, BID, PRN for constipation, # 155 gram(s), 0 Refill(s), other reason (Rx) Start Date: 07/12/21 Status: Ordered Start: 07-12-2021 take 1 dose by mouth twice daily as needed for constipation Benefiber oral powder for reconstitution Dose = 5 mL, Oral, BID, PRN for constipation, # 155 gram(s), 0 Refill(s), other reason (Rx) Start Date: 07/12/21 Status: Ordered zinc acetate 25 mg oral caps ule (2 sources) Start: 04-08-2022 zinc (as aceta te) 25 mg oral capsule Dose : 25 mg = 1 cap(s), Oral, TID, # 250 cap(s), 0 Refill(s) Start Date: 04/08/22 Status: Ordered Completed/Discontinued Medications Medication Drug Class(es) Dates Sig (Normalized) Sig (Original) acetaminophen 325 mg oral tablet (10 sources) Start: 08-11-2024 End: 08-11-2024 take 1 tablet by mouth every four hours as needed for pain and headache 650 mg, Oral, Every 4 hours PRN, mild pain (1-3), headaches, Starting on Fri08/11/24 at 1012, Maximum dose of acetaminophen is 4000 mg from all sources in 24 hours. Start: 08-06-2024 End: 08-11-2024 take 1 tablet by mouth every six hours as needed for pain and headache 650 mg, Oral, Every 6 hours PRN, mild pain (1-3), headaches, Starting on Fri08/06/24 at 1619, Maximum dose of acetaminophen is 4000 mg from all sources in 24 hours. Start: 11-11-2023 take 1 tablet by shahzad th every eight hours acetaminophen (Tylenol) 325 MG tablet Take 325 mg by mouth every 8 hours. 11/11/2023 Active Start: 06-20-2023 Tylenol 325 mg oral capsule Dose : 650 mg =, Oral, q4h, PRN Pain, scale 4-10, 0 Refill(s) Start Date: 06/20/23 Status: Ordered Start: 11-15-2021 Tylenol Extra Strength 500 mg oral tablet Dose : 1,000 mg = 2 tab(s), Oral, q6h, PRN as needed for fever, 0 Refill(s) Start Date: 11/15/21 Status: Ordered albuterol 0.83 mg/ml inhalation solution (20 sources) beta2-Adrenergic Agonist Start: 08-03-2024 End: 08-11-2024 2.5 mg, Nebulization, Every 2 hour PRN, wheezing, Starting on Fri08/03/24 at 2239 Start: 11-11-2023 take 2 puff(s) by in halation every four hours as needed for wheezing Albuterol Sulfate 108 (90 Base) MCG/ACT aerosol powder Inhale 2 puffs every 4 hours as needed (SOB/ Wheezing). 11/11/2023 Active Start: 12-31-2022 take 2 puff(s) by in halation every four hours as needed for wheezing albuterol HFA (PROVENTIL HFA, VENTOLIN HFA) 90 mcg/actuation inhaler Inhale 2 Puffs as instructed every 4 hours as needed for wheezing/shortness of breath. 1 Each 1 12/31/2022 Active Start: 01-28-2022 End: 07-27-2022 take 2 puff(s) by inhalation four times daily as needed for wheezing Proventil HFA MDI (90 mcg/inh) inhalation aerosol 2 puff(s), Inhalation, QID, PRN as needed for wheezing, # 3 EA, 1 Refill(s), Pharmacy: [facility]), 155, cm, 01/23/22 15:18:00 EST, Height, kg, 01/23/22 15:18:00 EST, Dosing Weight Start Date: 01/28/22 Stop Date: 07/27/22 Status: Ordered Start: 07-04-2020 take 2 puff(s) by mo [facility] four times daily as needed for wheezing Proventil HFA MDI (90 mcg/inh) R/O COVID19 inhalation aerosol See Instructions, INHALE 2 PUFFS BY MOUTH FOUR TIMES DAILY NEEDED FOR WHEEZING, # 6.7 gram(s), 3 Refill(s), Pharmacy: [facility] #[id number], 155, cm, 03/13/20 14:45:00 EST, Height, kg, 03/13/20 14:45:00 EST, Dosing Weight Start Date: 07/04/20 Status: Ordered azithromycin (Zithromax) 500 mg in sodium chloride 0.9 % 250 mL IVPB ([facility]-[place]) (2 sources) Start: 08-04-2024 End: 08-05-2024 500 mg, IntraVENous, Administer over 60 Minutes, Every 24 hours, First dose on Fri08/04/24 at 1100, [facility] bag, Suspected Indication (Select all that apply): Pneumonia (CAP) cefdinir 300 mg oral capsule (2 sources) Cephalosporin Antibacterial Start: 08-03-2024 End: 08-11-2024 take 1 capsule by mouth twice daily cefdinir (Omnicef) 300 MG capsule Take 300 mg by mouth 2 times daily. 08/03/2024 08/11/2024 Discontinued (Stop taking at discharge) cefTRIAXone (Rocephin) 1,000 mg in sodium chloride 0.9 % 50 mL IVPB Mini-Bag Plus (2 sources) Start: 08-04-2024 End: 08-09-2024 1,000 mg, IntraVENous, at 100 mL/hr, Administer over 30 Minutes, Every 24 hours, First dose on Fri08/04/24 at 1100, Mini-Bag Plus bag, Suspected Indication (Select all that apply): Pneumonia (CAP) cephalexin 500 mg oral capsule (4 sources) Cephalosporin Antibacterial Start: 08-09-2024 End: 08-11-2024 take 1 capsule by mouth every eight hours 1,000 mg, Oral, Every 8 hours, First dose on Fri08/09/24 at 2000, For 5 doses, Suspected Indication (Select all that apply): Pneumonia (CAP) Start: 09-03-2021 cephalexin 250 mg oral capsule Dose : 250 mg = 1 cap(s), Oral, Daily, UTI prophylaxis, # 90 cap(s), 1 Refill(s), Pharmacy: [facility], 155, cm, 08/13/21 14:43:00 EDT, Height, 102.8, kg, 08/13/21 14:43:00 EDT, Dosing Weight Start Date: 09/03/21 Status: Ordered Start: 01-22-2021 cephalexin 250 mg oral capsule Dose : 250 mg = 1 cap(s), Oral, Daily, UTI prophylaxis, # 90 cap(s), 3 Refill(s), Pharmacy: [facility] #[id number], 155, cm, 01/22/21 13:03:00 EST, Height, 100.5, kg, 01/22/21 13:03:00 EST, Dosing Weight Start Date: 01/22/21 Status: Ordered docusate sodium 50 mg / sennosides, correction 8.6 mg oral tablet (5 sources) Start: 08-04-2024 End: 08-11-2024 take 1 tablet by mouth every twenty-four hours as needed for constipation Start: 11-11-2023 take 1 tablet by shahzad th every twenty-four hours as needed for constipation senna-docusate (Senexon-S) 8.6-50 MG tablet Take 1 tablet by mouth Daily as needed for constipation. 11/11/2023 Active 0.3 ml enoxaparin sodium 100 mg/ml prefilled syringe (2 sources) Low Molecular Weight Heparin Start: 08-03-2024 End: 08-11-2024 inject 1 dose by subcutaneous injection twice daily 30 mg, SubCUTAneous, Every 12 hours scheduled (2 times per day), First dose on Fri08/03/24 at 2240, Indication of Use: Prophylaxis-DVT/PE 2 ml furosemide 10 mg/ml injection (20 sources) Loop Diuretic Start: 08-09-2024 End: 08-09-2024 20 mg, IntraVENous, Once, On Fri08/09/24 at 1600, For 1 dose Start: 08-07-2024 End: 08-08-2024 40 mg, IntraVENous, Once, On Fri08/08/24 at 1315, For 1 dose Start: 08-03-2024 End: 08-03-2024 40 mg, IntraVENous, Once, On Fri08/03/24 at 1930, For 1 dose Start: 05-15-2023 End: 08-07-2024 furosemide (LASIX) 40 mg tab let Take 40 mg by mouth once daily. Pt states that she takes 40 in the morning and 20 in the late afternoon 09/08/2023 Active Start: 09-27-2021 End: 06-19-2023 furosemide 20 mg oral tablet Dose : 20 mg = 1 tab(s), Oral, qDay, # 90 tab(s), 6 Refill(s), Pharmacy: [facility], 155, cm, 09/27/21 13:56:00 EDT, Height Start Date: 09/27/21 Stop Date: 06/19/23 Status: Ordered Start: 09-27-2021 End: 08-11-2024 take 1 tablet by mouth twice daily furosemide (Lasix) 20 MG tablet Take 20 mg by mouth 2 times daily. 09/27/2021 Active guaiFENesin 20 mg/ml oral solution (2 sources) Start: 08-06-2024 End: 08-11-2024 take 200 mg by mouth every four hours as needed for cough 200 mg, Oral, Every 4 hours PRN, cough, Starting on Fri08/06/24 at 0552 hydrOXYzine pamoate 25 mg oral capsule (20 sources) Antihistamine Start: 08-04-2024 End: 08-11-2024 take 1 capsule by mouth every eight hours as needed for anxiety 25 mg, Oral, Every 8 hours PRN, anxiety, Starting on Fri08/04/24 at 0211 Start: 08-03-2024 End: 08-04-2024 take 25 mg by mouth once 25 mg, Oral, Once, On Fri at 0600, For 1 dose Start: 06-01-2024 take 1 tablet by shahzad th three times daily hydrOXYzine HCl (Atarax) 25 MG tablet Take 25 mg by mouth 3 times daily. 06/01/2024 Active Start: 10-28-2022 Vistaril 50 mg oral capsule Dose : 50 mg = 1 cap(s), Oral, QID, PRN as needed for anxiety, # 120 cap(s), 5 Refill(s), Pharmacy: [facility], 152, cm, 10/28/22 14:22:00 EDT, Height, kg, 10/28/22 14:22:00 EDT, Dosing Weight Start Date: 10/28/22 Status: Ordered Start: 04-08-2022 Vistaril 50 mg oral capsule Dose : 50 mg = 1 cap(s), Oral, QID, PRN as needed for anxiety, # 40 cap(s), 0 Refill(s) Start Date: 04/08/22 Status: Ordered Start: 09-20-2021 hydrOXYzine pa moate 50 mg oral capsule Dose : 50 mg = 1 cap(s), Oral, QID, # 360 cap(s), 1 Refill(s), Pharmacy: [facility], 155, cm, 08/13/21 14:43:00 EDT, Height, kg, 08/13/21 14:43:00 EDT, Dosing Weight Start Date: 09/20/21 Status: Ordered Start: 12-06-2020 take 1 capsule by mo uth three times daily hydrOXYzine pamoate 50 mg oral capsule See Instructions, TAKE 1 CAPSULE BY MOUTH THREE TIMES DAILY, # 270 cap(s), 1 Refill(s), Pharmacy: [facility] #[id number], 152, cm, 09/05/20 14:17:00 EDT, Height, kg, 09/05/20 14:17:00 EDT, Dosing Weight Start Date: 12/06/20 Status: Ordered Start: 12-06-2020 hydrOXYzine pa moate (VISTARIL) 50 mg capsule Take 25 mg by mouth three times a day. 12/06/2020 Active Start: 12-06-2020 take 1 capsule by mo ut every six hours as needed hydrOXYzine pamoate (VISTARIL) 50 mg capsule Take 50 mg by mouth four times a day as needed for anxiety. 0 12/06/2020 Active magnesium oxide 250 mg oral tablet (2 sources) Start: 04-08-2022 End: 04-17-2022 Magnesium 250 mg tablet Dose : 250 mg = 1 tab(s), Oral, BID, 0 Refill(s) Start Date: 04/08/22 Stop Date: 04/17/22 Status: Ordered 50 ml magnesium sulfate 40 mg/ml injection (2 sources) Start: 08-03-2024 End: 08-03-2024 2,000 mg, IntraVENous, at 100 mL/hr, Administer over 30 Minutes, Once, On Fri08/03/24 at 1705, For 1 dose, Recommended infusion rate not to exceed 1,000 mg (milligrams) per hour. methylPREDNISolone 40 mg injection (4 sources) Corticosteroid Start: 08-05-2024 End: 08-09-2024 take 20 mg intravenously every twelve hours 20 mg, IntraVENous, Every 12 hours, First dose on Fri08/05/24 at 1600 Start: 08-04-2024 End: 08-05-2024 take 40 mg intravenously every eight hours 40 mg, IntraVENous, Every 8 hours, First dose on Fri08/04/24 at 1245 pantoprazole 40 mg delayed release oral tablet (2 sources) Proton Pump Inhibitor Start: 08-05-2024 End: 08-11-2024 take 40 mg by mouth once daily before breakfast 40 mg, Oral, Daily before breakfast, First dose on Fri08/05/24 at 0600, Do not crush, chew, or split. perflutren protein A microsphere (Optison) 3 mL in sodium chloride (PF) 0.9 % 10 mL IV (2 sources) Start: 08-05-2024 End: 08-11-2024 0-10 mL, IntraVENous, IMG once PRN, other, Suboptimal echo image, Starting on Fri08/05/24 at 0913, For 1 dose, CV Procedural Medications, Administer via slow IVP for suboptimal echocardiogram enhancement. May administer as divided doses to reach optimal image enhancement polyethylene glycol 3350 11954 mg powder for oral solution (2 sources) Osmotic Laxative Start: 08-03-2024 End: 08-11-2024 take 17 g by mouth every twenty-four hours as needed for constipation microencapsulated potassium chloride 10 meq extended release oral tablet (14 sources) Start: 08-04-2024 End: 08-11-2024 20 mEq, Oral, Every 12 hours, First dose on Fri08/04/24 at 2100, Best given with food and a glass of water to minimize gastric irritation. Do not crush or chew. Start: 11-12-2023 take 1 tablet by shahzad every twelve hours potassium chloride CR (K-Tab) 20 MEQ ER tablet Take 20 mEq by mouth every 12 hours. 11/12/2023 Active Start: 03-28-2023 potassium chlo ride 10 mEq oral capsule, extended release Dose : 30 mEq = 3 cap(s), Oral, BID, # 400 cap(s), 3 Refill(s), Pharmacy: [facility], 152, cm, 02/03/23 13:41:00 EST, Height, kg, 02/03/23 13:41:00 EST, Dosing Weight Start Date: 03/28/23 Status: Ordered Start: 01-22-2022 take 1 capsule by [facility] twice daily potassium chloride 10 mEq oral capsule, extended release 1 cap(s), Oral, BID, # 180 cap(s), 3 Refill(s), Pharmacy: [facility]), 155, cm, 11/15/21 13:53:00 EDT, Height, kg, 11/15/21 13:53:00 EDT, Dosing Weight Start Date: 01/22/22 Status: Ordered Start: 03-13-2020 potassium chlo ride 10 mEq oral capsule, extended release Dose : 10 mEq = 1 cap(s), Oral, BID, # 180 cap(s), 3 Refill(s), Pharmacy: [facility] #[id number], 155, cm, 03/13/20 14:45:00 EST, Height, kg, 03/13/20 14:45:00 EST, Dosing Weight Start Date: 03/13/20 Status: Ordered take 1 tablet by [facility] twice daily potassium chloride ER (KLOR-CON) 20 mEq tablet Take 20 mEq by mouth two times a day. Active 5 ml sodium chloride 9 mg/ml injection (6 sources) Start: 08-07-2024 End: 08-11-2024 take 10 mL intravenously every eight hours 10 mL, IntraVENous, Every 8 hours, First dose (after last modification) on 08/07/24 at 1145, After every IV line use Start: 08-03-2024 End: 08-11-2024 10 mL, IntraVENous, Every 12 hours scheduled (2 times per day), First dose on Fri08/03/24 at 2240 Start: 08-03-2024 End: 08-11-2024 stomahesive in petrolatum (E T Mix) (4 sources) Start: 08-05-2024 End: 08-11-2024 Topical, Every 8 hours, Firs t dose on Rita 08/05/24 at 1430, Nursing staff to perform dressing change: Right buttock: Pressure Injury (DTI) - Clean with soap and water, apply ET mix then leave [employer] TID and PRN Start: 08-05-2024 End: 06-04-2025 Topical, PRN, dry skin, Star ting on Rita 08/05/24 at 1401, Nursing staff to perform dressing change: Right buttock: Pressure Injury (DTI) - Clean with soap and water, apply ET mix then leave LISA TID and PRN traMADol hydrochloride 50 mg oral tablet (4 sources) Opioid Agonist Start: 08-03-2024 End: 08-03-2024 take 50 mg by mouth once, then take 300 mg by mouth once daily 50 mg, Oral, Once, On Fri08/03/24 at 1955, For 1 dose, Max of 300 mg daily for patients > 75 years of age. Start: 06-02-2024 End: 08-11-2024 take 1 tablet by mouth twice daily as needed for pain traMADol (Ultram) 50 MG tablet Take 50 mg by mouth 2 times daily as needed for moderate pain (4-6) or severe pain (7-10). 06/02/2024 08/11/2024 Discontinued (Stop taking at discharge) Problems Active Problems Problem Classification Problem Date Documented Da te Episodic/Chronic Acute and unspecified renal failure (6 sources) Acute renal failure syndrome; Translations: [Acute kidney failure, unspecified] Onset: 4 10-21-2023 Episodic Asthma (1 source) Exacerbation of asthma; Translations: [Unspecified asthma with (acute) exacerbation] Chronic Bacterial infection; unspecified site (6 sources) Haemophilus influenzae infection; Translations: [Hemophilus influenzae infection, unspecified site] 09-30-2023 Episodic Cardiac dysrhythmias (4 sources) Palpitations; Translations: [Sinus bradycardia] 07-12-2021 Episodic Chronic obstructive pulmonary disease and bronchiectasis (20 sources) Chronic bronchitis; Translations: [Chronic obstructive lung disease] Onset: 2 01-21-2018 Chronic Comment on above: PFTs moderate restri ctive improved with bronchodilator 10/08; echocardiogram normal 10/08. Stress test 05/21 nl EF 68% Chronic obstructive pulmonary disease and bronchiectasis (4 sources) Bronchitis 09-05-2020 Episodic Chronic ulcer of skin (3 sources) Skin ulcer; Translations: [Non-pressure chronic ulcer of skin of other sites with unspecified severity] Onset: 3 10-22-2021 Chronic Conditions associated with dizziness or vertigo (6 sources) Dizziness and giddiness; Translations: [Dizziness] Onset: 2 Episodic Congestive heart failure; nonhypertensive (15 sources) Unspecified diastolic (congestive) heart failure; Translations: [Chronic diastolic heart failure] Onset: 2 Chronic Esophageal disorders (6 sources) Gastroesophageal reflux disease; Translations: [Gastroesophageal reflux disease without esophagitis] 08-12-2019 Chronic Essential hypertension (17 sources) Hypertensive disorder; Translations: [Essential (primary) hypertension] 01-21-2018 Chronic Fluid and electrolyte disorders (12 sources) Hypokalemia; Translations: [Hypokalemia] Onset: 2 10-18-2019 Episodic Genitourinary symptoms and ill-defined conditions (4 sources) Urinary incontinence 07-18-2020 Chronic Genitourinary symptoms and ill-defined conditions (10 sources) Nocturia; Translations: [Abnormal urinalysis] Onset: 4 07-24-2020 Episodic Hypertension with complications and secondary hypertension (2 sources) Hypertensive heart failure; Translations: [Hypertensive heart disease with heart failure] Chronic Influenza (4 sources) Influenza due to Influenza A virus; Translations: [Influenza due to identified novel influenza A virus with other respiratory manifestations] Onset: 2 Episodic Malaise and fatigue (13 sources) Asthenia; Translations: [Other malaise] 09-23-2023 Episodic Mood disorders (6 sources) Chronic depression; Translations: [Depressive disorder] 07-18-2020 Chronic Osteoporosis (4 sources) Osteoporosis 08-03-2018 Chronic Other acquired deformities (2 sources) Lumbar spondylolisthesis 04-08-2022 Episodic Other connective tissue disease (3 sources) Swelling of lower limb 07-12-2021 Episodic Other connective tissue disease (5 sources) Non-traumatic rhabdomyolysis; Translations: [Rhabdomyolysis] 10-27-2023 Episodic Other diseases of bladder and urethra (6 sources) Overactive bladder; Translations: [Overactive bladder] 07-24-2020 Chronic Other ear and sense organ disorders (4 sources) Impacted cerumen 12-11-2020 Episodic Other gastrointestinal disorders (4 sources) Diarrhea 10-18-2019 Episodic Other injuries and conditions due to external causes (5 sources) History of fall; Translations: [History of falling] 10-27-2023 Episodic Other injuries and conditions due to external causes (1 source) Traumatic ischemia of muscle, initial encounter; Translations: [Traumatic rhabdomyolysis, initial encounter ([facility])] Onset: 4 Episodic Other lower respiratory disease (5 sources) Dyspnea; Translations: [Shortness of breath] Onset: 4 08-28-2020 Episodic Other lower respiratory disease (2 sources) Dyspnea, unspecified; Translations: [Dyspnea, unspecified] Onset: 2 Episodic Other lower respiratory disease (2 sources) Hypoxemia; Translations: [Hypoxemia] Onset: 2 Episodic Other lower respiratory disease (6 sources) Dyspnea on exertion 08-13-2021 Episodic Other lower respiratory disease (1 source) Snoring 10-28-2022 Episodic Other nervous system disorders (4 sources) Chronic back pain greater than three months duration 03-13-2020 Chronic Other nervous system disorders (1 source) Encephalopathy, unspecified; Translations: [Acute encephalopathy] Onset: 4 Chronic Other non-traumatic joint disorders (5 sources) Pain in right shoulder; Translations: [Pain in joint, shoulder region] 10-27-2023 Episodic Other nutritional; endocrine; and metabolic disorders (6 sources) Body mass index 40+ - severely obese; Translations: [Body mass index (BMI) 40.0-44.9, adult] 12-11-2020 Chronic Other nutritional; endocrine; and metabolic disorders (6 sources) Morbid obesity; Translations: [Morbid (severe) obesity due to excess calories] 12-11-2020 Chronic Other nutritional; endocrine; and metabolic disorders (2 sources) Morbid (severe) obesity due to excess calories; Translations: [Morbid (severe) obesity due to excess calories] Onset: 4 Chronic Other nutritional; endocrine; and metabolic disorders (13 sources) Obese class II; Translations: [Obesity, unspecified] Onset: 4 09-13-2023 Chronic Other nutritional; endocrine; and metabolic disorders (1 source) Hypomagnesemia; Translations: [Hypomagnesemia] Onset: 4 Chronic Other screening for suspected conditions (not mental disorders or infectious disease) (3 sources) Electrocardiogram abnormal 09-27-2021 Episodic Other skin disorders (1 source) Lesion of skin of face 10-28-2022 Episodic Other skin disorders (2 sources) Onychogryphosis; Translations: [Onychogryphosis] Onset: 4 Episodic Pneumonia (except that caused by tuberculosis or sexually transmitted disease) (2 sources) Pneumococcal pneumonia; Translations: [Pneumonia due to Streptococcus pneumoniae] Episodic Pulmonary heart disease (1 source) Pulmonary hypertension 09-02-2022 Chronic Residual codes; unclassified (3 sources) Needs influenza immunization 12-11-2020 Episodic Residual codes; unclassified (3 sources) Swelling - edema - symptom 02-08-2021 Episodic Residual codes; unclassified (1 source) Altered mental status, unspecified; Translations: [Altered mental status, unspecified altered mental status type] Onset: 4 Episodic Respiratory failure; insufficiency; arrest (adult) (16 sources) Acute respiratory failure; Translations: [Acute respiratory failure with hypoxia] Onset: 5 Episodic Septicemia (except in labor) (13 sources) Sepsis, unspecified organism; Translations: [Unspecified septicemia] Onset: 4 09-13-2023 Episodic Skin and subcutaneous tissue infections (3 sources) Cellulitis 07-12-2021 Episodic Spondylosis; intervertebral disc disorders; other back problems (6 sources) Sciatica; Translations: [Lumbar radiculopathy] 08-03-2018 Episodic Thyroid disorders (19 sources) Hypothyroidism; Translations: [Hypothyroidism, unspecified] Onset: 3 01-21-2018 Chronic Unclassified (5 sources) Patient encounter status 12-11-2020 Unclassified (3 sources) Osteoporosis monitoring refused 10-22-2021 Unclassified (1 source) Does mobilize using cane 10-28-2022 Urinary tract infections (18 sources) Recurrent urinary tract infection; Translations: [Urinary tract infection, site not specified] Onset: 3 03-13-2020 Episodic Past or Other Problems Problem Classification Problem Date Documented Da te Episodic/Chronic Gastrointestinal hemorrhage (4 sources) Rectal hemorrhage; Translations: [Hemorrhage of anus and rectum] Onset: 12-31-2022 01-13-2023 Episodic Results Test Name Value Interpretation Reference Range Facility 36on 08-13-2024 36 COPD Navigator Note Called patient on home phone. No answer. Left Voicemail. Normal [facility] [id number] 08-11-2024 [id number] Next Site of Care Admission Date: 08/03/2024 04:21 PM Patient Name: EMILY PERALTA Location: [address] CARDIAC PCU/[facility] [id number] A Date of : 1940 ------- Placement Information ------- Referral Type:Longterm ICF - Return Referral ID:[id number] Provider Name:[email or web address]. Address 1:[address] Address 2: City[place] Selection Factors:Returning to Facility State:[facility] [phone] Discharge med list transmitted to RETURN BACK TO [facility] via Careport per TCC request. Normal [facility] [id number] Rounds this am DCP: DC today [facility] explosive operator supervisor time scheduled for 430 Facility notified RN notified with time and P# for report MAIL HANDLERS SUPERVISOR tasked to send DC packet and MAR to acility Normal [facility] BASIC METABOLIC PANELon 06-0 Anion gap [Moles/Vol] 10 mmol/L Normal 3-13 [facility] Comment on above: Performed By: #### L [id number] ####Supervisor [employer]: JOHAN BHANDARI ([id number])[facility] [place] (SB[facility])[address] Calcium [Mass/Vol] 9.6 mg/dL Normal 8.8-10.0 [facility] Comment on above: Performed By: #### L [id number] ####Supervisor [employer]: JOHAN BHANDARI ([id number])[facility] [place] (SBHLAB)[address] [place] [address] [place] Chloride [Moles/Vol] 100 mmol/L Normal 98-107 [facility] Comment on above: Performed By: #### L [id number] ####Supervisor [employer]: JOHAN BHANDARI ([id number])[facility] [place] (SB[facility])[address] [place] [address] [place] CO2 [Moles/Vol] 27 mmol/L Normal 23-31 [facility] Comment on above: Performed By: #### L [id number] ####Supervisor [employer]: JOHAN BHANDARI ([id number])[facility] [place] (SB[facility])[address] [place] [address] [place] Creatinine [Mass/Vol] 0.75 mg/dL Normal 0.57-1.11 [facility] Comment on above: Performed By: #### L [id number] ####Supervisor [employer]: JOHAN BHANDARI ([id number])[facility] [place] (SB[facility])[address] [place] [address] [place] GLOMERULAR FILTRATION RATE ML/MIN/1.73 SQ M.PREDICTED 78.1 mL/min/1.73m*2 Normal >60.0 [facility] Comment on above: Result Comment: Calc ulation based on the Chronic Kidney Disease Epidemiology Collaboration (CKD-EPI) equation refit without adjustment for race Performed By: #### L [id number] ####Supervisor [employer]: JOHAN BHANDARI ([id number])[facility] (SBHLAB)[address] Glucose [Mass/Vol] 78 mg/dL Low 82-115 [facility] Comment on above: Performed By: #### L [id number] ####Supervisor [employer]: JOHAN BHANDARI ([id number])[facility] (SBHLAB)[address] Potassium [Moles/Vol] 4.1 mmol/L Normal 3.5-5.1 [facility] Comment on above: Result Comment: [facility] potassium values may be up to 0.5 mmol/L lower than serum values. Performed By: #### L [id number] ####Supervisor [employer] Products: JOHAN BHANDARI ([id number])[facility] Sodium [Moles/Vol] 137 mmol/L Normal 136-145 [facility] Comment on above: Performed By: #### L [id number] ####Supervisor [employer]: JOHAN BHANDARI ([id number])[facility] (SBHLAB)[address] Urea nitrogen [Mass/Vol] 18 mg/dL Normal 9-23 [facility] Comment on above: Performed By: #### L [id number] ####Supervisor [employer]: JOHAN BHANDARI ([id number])[facility] (SBHLAB)[address] Basic metabolic 1998 panelon 08-11-2024 Anion gap [Moles/Vol] 10 mmol/L 3 - 13 mmol/L [facility] Calcium [Mass/Vol] 9.6 mg/dL 8.8 - 10. 0 mg/dL [facility] Chloride [Moles/Vol] 100 mmol/L 98 - 10 7 mmol/L [facility] CO2 [Moles/Vol] 27 mmol/L 23 - 31 mmol/L [facility] Creatinine [Mass/Vol] 0.75 mg/dL 0.57 - 1.11 mg/dL [facility] GFR/1.73 sq M.predicted (S/P/Bld) [Vol rate/Area] 78.1 mL/min - PINF [facility] Comment on above: Calculation based on the Chronic Kidney Disease Epidemiology Collaboration (CKD-EPI) equation refit without adjustment for race Glucose [Mass/Vol] 78 mg/dL Low 82 - 115 mg/dL [facility] Interpretation and review of laboratory results Abnormal [facility] Potassium [Moles/Vol] 4.1 mmol/L 3.5 - 5.1 mmol/L [facility] Comment on above: Plasma potassium gustavo ues may be up to 0.5 mmol/L lower than serum values. Sodium [Moles/Vol] 137 mmol/L 136 - 145 mmol/L [facility] Urea nitrogen [Mass/Vol] 18 mg/dL 9 - 23 mg/dL [facility] CBC W Auto Differential pane l (Bld)on 08-11-2024 Basophils (Bld) [#/Vol] 0 10*3/uL 0.0 - 0.2 10*3/uL [facility] Basophils/100 WBC (Bld) 0.1 % 0.0 - 2.0 % [facility] Eosinophils (Bld) [#/Vol] 0.1 10*3/uL 0.0 - 0.5 10*3/uL [facility] Eosinophils/100 WBC (Bld) 1.5 % 0.0 - 6.0 % [facility] Erythrocyte distribution width (RBC) [Ratio] 13.9 % 11.5 - 15.0 % [facility] Hematocrit (Bld) [Volume fraction] 42.1 % 35.0 - 47.0 % [facility] Hemoglobin (Bld) [Mass/Vol] 13.7 g/dL 11.7 - 16.0 g/dL [facility] Immature granulocytes (Bld) [#/Vol] 0.1 10*3/uL High NINF - 0.1 10*3/uL [facility] Immature granulocytes/100 WBC (Bld) 1.2 % 0.0 - 2.0 % [facility] Interpretation and review of laboratory results Abnormal [facility] IPF 1 [facility] Lymphocytes (Bld) [#/Vol] 1.5 10*3/uL 1.0 - 4.3 10*3/uL [facility] Lymphocytes/100 WBC (Bld) 20.2 % 15.0 - 45.0 % [facility] MCH (RBC) [Entitic mass] 28.7 pg 26. 0 - 34.0 pg [facility] MCHC (RBC) [Mass/Vol] 32.5 % 30.5 - 36.0 % [facility] MCV (RBC) [Entitic vol] 88.1 fL 77.0 - 99.0 fL [facility] Monocytes (Bld) [#/Vol] 0.9 10*3/uL 0.0 - 0.9 10*3/uL [facility] Monocytes/100 WBC (Bld) 11.8 % 5.0 - 13.0 % [facility] Neutrophils (Bld) [#/Vol] 4.9 10*3/uL 1.8 - 7.5 10*3/uL [facility] Neutrophils/100 WBC (Bld) 65.2 % 38.0 - 82.0 % [facility] Nucleated RBC/100 WBC (Bld) [Ratio] 0 % [facility] Platelet mean volume (Bld) [Entitic vol] 9.1 fL 9.0 - 12.7 fL [facility] Platelets (Bld) [#/Vol] 114 10*3/uL Low 140 - 440 10*3/uL [facility] RBC (Bld) [#/Vol] 4.78 10*6/uL 3.80 - 5.2 0 10*6/uL [facility] WBC (Bld) [#/Vol] 7.5 10*3/uL 3.6 - 10.7 10*3/uL [facility] CBC WITH AUTO DIFFERENTIALon 08-11-2024 Basophils (Bld) [#/Vol] 0.0 10*3/uL Normal 0.0-0.2 [facility] Comment on above: Performed By: #### L [id number] ####Supervisor [employer]: JOHAN BHANDARI ([id number])[facility] [place] (SBHLAB)[address] Basophils/100 WBC (Bld) 0.1 % Normal 0.0-2.0 [facility] Comment on above: Performed By: #### L [id number] ####Supervisor [employer]: JOHAN BHANDARI ([id number])[facility] [place] (SBHLAB)[address] Eosinophils (Bld) [#/Vol] 0.1 10*3/uL Normal 0.0-0.5 [facility] Comment on above: Performed By: #### L [id number] ####Supervisor [employer]: JOHAN BHANDARI ([id number])[facility] [place] (SBHLAB)[address] Eosinophils/100 WBC (Bld) 1.5 % Normal 0.0-6.0 [facility] Comment on above: Performed By: #### L [id number] ####Supervisor [employer]: JOHAN BHANDARI ([id number])[facility] [place] (SB[facility])[address] [place] [address] Erythrocyte distribution width (RBC) [Ratio] 13.9 % Normal 11.5-15.0 [facility] Comment on above: Performed By: #### L [id number] ####Supervisor [employer]: JOHAN BHANDARI ([id number])[facility] [place] (SBHLAB)[address] [place] [address] Hematocrit (Bld) [Volume fraction] 42.1 % Normal 35.0-47.0 [facility] Comment on above: Performed By: #### L [id number] ####Supervisor [employer]: JOHAN BHANDARI ([id number])[facility] [place] (SB[facility])[address] [place] [address] Hemoglobin (Bld) [Mass/Vol] 13.7 g/dL Normal 11.7-16.0 [facility] Comment on above: Performed By: #### L [id number] ####Supervisor [employer]: JOHAN BHANDARI ([id number])[facility] [place] ([facility])[address] IMMATURE GRANS % 1.2 % Normal 0.0-2.0 [facility] Comment on above: Performed By: #### L [id number] ####Supervisor [employer]: JOHAN BHANDARI ([id number])[facility] [place] ([facility])[address] IMMATURE GRANS ABSOLUTE 0.1 10*3/uL High <0.1 [facility] Comment on above: Performed By: #### L [id number] ####Supervisor [employer] Products: JOHAN BHANDARI ([id number])[facility] ([facility])[address] IPF 1 Normal [facility] Comment on above: Performed By: #### L [id number] ####Supervisor [employer] Products: JOHAN BHANDARI ([id number])[facility] ([facility])[address] Lymphocytes (Bld) [#/Vol] 1.5 10*3/uL Normal 1.0-4.3 [facility] Comment on above: Performed By: #### L [id number] ####Supervisor [employer]: JOHAN BHANDARI ([id number])[facility] ([facility])[address] Lymphocytes/100 WBC (Bld) 20.2 % Normal 15.0-45.0 [facility] Comment on above: Performed By: #### L [id number] ####Supervisor [employer] Products: JOHAN BHANDARI ([id number])[facility] [place] ([facility])[address] MCH (RBC) [Entitic mass] 28.7 pg Normal 26.0-34.0 [facility] Comment on above: Performed By: #### L [id number] ####Supervisor [employer] Products: JOHAN BHANDARI ([id number])[facility] ([facility])[address] MCHC 32.5 % Normal 30.5-36.0 [facility] Comment on above: Performed By: #### L [id number] ####Supervisor [employer]: JOHAN WATTSCANDY ([id number])[facility] [place] (SBHLAB)[address] MCV (RBC) [Entitic vol] 88.1 fL Normal 77.0-99.0 [facility] Comment on above: Performed By: #### L [id number] ####Supervisor [employer] Products: JOHAN WATTSCANDY ([id number])[facility] [place] (SBHLAB)[address] Monocytes (Bld) [#/Vol] 0.9 10*3/uL Normal 0.0-0.9 [facility] Comment on above: Performed By: #### L [id number] ####Supervisor [employer]: JOHAN ALEGRIAELVIRACANDY ([id number])[facility] [place] (SBHLAB)[address] Monocytes/100 WBC (Bld) 11.8 % Normal 5.0-13.0 [facility] Comment on above: Performed By: #### L [id number] ####Supervisor [employer]: JOHAN WATTSCANDY ([id number])[facility] [place] (SBHLAB)[address] NEUTROPHILS ABSOLUTE 4.9 10*3/uL Normal 1.8-7.5 [facility] Comment on above: Performed By: #### L [id number] ####Supervisor [employer]: JOHAN WATTSCANDY ([id number])[facility] [place] (SBHLAB)[address] [place] [address] [place] Neutrophils/100 WBC (Bld) 65.2 % Normal 38.0-82.0 [facility] Comment on above: Performed By: #### L [id number] ####Supervisor [employer]: JOHAN BHANDARI ([id number])[facility] [place] (SBHLAB)[address] NRBC 0.0 /100 WBCs Normal 0.0-2.0 [facility] Comment on above: Performed By: #### L [id number] ####Supervisor [employer] Products: JOHAN BHANDARI ([id number])[facility] (SBHLAB)[address] Platelet mean volume (Bld) [Entitic vol] 9.1 fL Normal 9.0-12.7 [facility] Comment on above: Performed By: #### L [id number] ####Supervisor [employer] Products: JOHAN BHANDARI ([id number])[facility] ([facility])[address] Platelets (Bld) [#/Vol] 114 10*3/uL Low 140-440 [facility] Comment on above: Performed By: #### L [id number] ####Supervisor [employer]: JOHAN BHANDARI ([id number])[facility] (SBHL[facility])[address] RBC (Bld) [#/Vol] 4.78 10*6/uL Normal 3.80-5.20 [facility] Comment on above: Performed By: #### L [id number] ####Supervisor [employer]: JOHAN BHANDARI ([id number])[facility] ([place])[address] WBC (Bld) [#/Vol] 7.5 10*3/uL Normal 3.6-10.7 [facility] Comment on above: Performed By: #### L [id number] ####Supervisor [employer]: JOHAN BHANDARI ([id number])[facility] (SBHLAB)[address] Nursing Noteon 08-11-2024 Nursing Note Patient sent with belongings with transport to facility at this time. Normal [facility] Nursing Note Report called to facility [facility], hallway 100. RN familiar with patient. Waiting on transport. Normal [facility] Progress Noteon 08-11-2024 Progress Note PHYSICAL THERAPY [facility] Treatment Note Name/MRN: Emily Peralta ([id number]) Date of : 1940 Age: 83 y.o. Room/Bed: B2-255/B2-255 A Visit #: 5 out of 8 Discharge Recommendation: Correction Facility Equipment Needed: No Assessment Pt continues to make good overall progress towards established therapy goals this date. Remains limited by SOB and fatigue. Pt completed STS transfers with fww at [facility], Gait training with fww completed at [facility]. Pt tolerated all activity well and gave good overall effort. Vitals noted WNLs on 2L O2 via NC. Pt will continue to benefit from skilled therapy services during acute medical stay to improve upon presenting deficits prior to discharge to SNF. Subjective Pt pleasant and agreeable to PT session. RN cleared pt for session. Pain: Pt denies any current pain. Medical Precautions: No active isolations Proper PPE donned/doffed in accordance with facility standards. Fall Risk: Sotomayor Fall Risk Score: 85 (Low Risk) Sotomayor Fall Risk Score: 85 (High Risk) Precautions/Restricti ons: Lines/Drains/Airways: 2L HFNC Fall Precautions Overall Cognitive Status: WFL Overall Orientation Status: Oriented to Person Family/Caregiver Present: none Objective Bed Mobility Pt up in chair upon arrival Transfers/Mobility Sit to stand: Contact Guard Stand to sit: Contact Guard CGAx1 for STS x2 from bedside recliner with fww. Cues for body mechanics, sequencing, activity pacing and transfer surface approximation. Increased time needed to complete. No LOB. Device(s) used: Front wheeled walker Ambulation Ambulation 1 Assistive device(s) used: Front wheeled walker Assist level: SBA, Contact Guard Distance (ft): 40ft x1 Quality of gait: No LOB, reciprocal stepping, B foot clearance, shuffling, narrow TSERING, slow moses Pt completed gait training with fww at [facility] progressing to SBAx1. Cues for proper foot clearance, activity pacing and device management. No overt LOB. Limited d/t mild SOB. SpO2 92-96% throughout. Good overall return of cues noted. Plan Continue acute PT per plan of care. Safety/Education Safety Safety Devices in place: All fall risk precautions in place, call light within reach, left in chair, gait belt, patient at risk for falls, nurse notified, and no alarms engaged upon entry Restraints: N/A Education Education Given To: patient Education Provided: PT Role, PT Goals, Gait Training, Plan of Care, Transfer Training, Energy Conservation, IADL Safety, Equipment, Fall Prevention Education, Discharge Recommendations, and Benefits of Increasing Activity Education Method: Verbal, Demonstration, and Teach Back Barriers to Learning: None Education Outcome: Verbalized Understanding, Demonstrated Understanding, and Continued Education Needed Outcome Measures AM-PAC AM-PAC Inpatient Mobility Raw Score (No Stairs) : 15 JH-HLM JH-HLM Score: Walked 25 ft or more (i.e. walked outside of room) Goals Patient Stated Goal: none stated Encounter Problems Encounter Problems (Active) Balance Patient will maintain dynamic standing balance for 3-5 minutes with SBA in order to demonstrate decreased risk of falling. (Progressing) Start: 08/04/24 Expected End: 08/14/24 Exercise Patient will complete lower extremity exercises for 1-2 sets / 5-10 reps in order to improve strength and activity tolerance for mobility. (Not Addressed) Start: 08/04/24 Expected End: 08/14/24 Mobility Patient will ambulate 15 feet with SBA and rolling walker in order to improve safety and independence with mobility. (Completed) Start: 08/04/24 Expected End: 08/11/24 Resolved: 08/10/24 Updated to: Patient will ambulate 50 feet with SBA and rolling walker in order to improve safety and independence with mobility. Update reason: pt progress Patient will ambulate 50 feet with SBA and rolling walker in order to improve safety and independence with mobility. (Progressing) Start: 08/10/24 Expected End: 08/14/24 Transfers Patient will perform bed mobility with modified independence in order to improve independence and prepare for out of bed mobility. (Not Addressed) Start: 08/04/24 Expected End: 08/14/24 Patient will complete functional transfer with rolling walker with CGA in order to prepare for ambulation. (Completed) Start: 08/04/24 Expected End: 08/11/24 Resolved: 08/10/24 Updated to: Patient will complete functional transfer with rolling walker with mod I in order to prepare for ambulation. Update reason: pt progress Patient will complete functional transfer with rolling walker with mod I in order to prepare for ambulation. (Progressing) Start: 08/10/24 Expected End: 08/14/24 Therapy Time Individual Co-treatment Time In 1354 Time Out 1405 Minutes 11 Timed Code Treatment Minutes: 10 Minutes (gait x1) Chuck Ruvalcaba, PT Normal [facility] Progress Note [facility] Pulmonary Medicine [address] [place], [place] [id number] Patient - Emily Peralta, Age - 83 y.o. - 1940 Room Number - B2-255/B2-255 A Consulting - Helen Wan DO Primary Care Physician - No primary care provider on file. [facility] # - [id number] Date of Admission - 08/03/2024 4:21 PM Hospital Day - 8 Chief Complaint: shortness of breath Emily Peralta is a 83 y.o. female who pulmonary is following for acute on chronic hypoxemic respiratory failure, CAP Interval History Awake and alert sitting on the chair currently on 2 L a cannula Oxygen saturation 92-96 percentile Patient feels better She is claustrophobic cannot use any PAP therapy All other systems reviewed and negative unless otherwise stated in HPI. Objective Vitals: BP 123/78 (BP Location: Right arm, Patient Position: Sitting) Pulse 88 Temp 36.8 ?C (98.2 ?F) (Temporal) Resp 20 Ht 5' (1.524 m) Wt 220 lb (99.8 kg) SpO2 93% BMI 42.97 kg/m? Pulse Ox: SpO2 Av.7 % Min: 93 % Max: 95 % Supplemental O2: O2 Flow Rate (L/min): 2 L/min I/O 24HR INTAKE/OUTPUT: No intake or output data in the 24 hours ending 08/11/24 0913 Exam General appearance: Awake and alert intermittently cannula saturation 92 to 96% HEENT: Normocephalic, atraumatic. No scleral icterus, no right/left eye discharge. Conjunctivae normal. Pupils equal round and reactive to light. Right external ear normal, Left external ear normal. No congestion. Mouth: mucous membranes moist. Pharynx, Oropharynx is clear. No oropharyngeal exudate. Neck: ROM normal, No thyromegaly. No cervical lymphadenopathy Cardiovascular: Regular rate and rhythm. Heart sounds normal. Negative for murmur, friction rub, or gallop. Pulmonary: Effort normal, no respiratory distress. No stridor. No wheezing Decreased breath sound bilaterally. Abdomen: Soft, no distention, no abdominal tenderness. No guarding. No masses. Musculoskeletal: ROM normal. Skin: Warm and dry. Skin is not jaundiced. No rash Extremities: No clubbing or cyanosis. 1+ pitting lower extremity edema. Neurological: No focal deficits. Alert and oriented x person, place and time. Mental status is at baseline. No motor weakness. Psychiatric: Mood, behavior, thought content normal. Cooperative with exam. Medications Current Medications Scheduled Meds[1] PRN Mediations PRN Meds[2] IV Drips/Infusions Continuous Meds[3] Labs CBC Results from last 7 days Lab Units 08/11/24 0620 WBC AUTO 10*3/uL 7.5 HEMOGLOBIN g/dL 13.7 HEMATOCRIT % 42.1 PLATELETS 10*3/uL 114* BMP: Results from last 7 days Lab Units 08/11/24 0620 08/10/24 0453 08/09/24 0319 SODIUM mmol/L 137 137 138 POTASSIUM mmol/L 4.1 4.2 4.5 CHLORIDE mmol/L 100 101 99 CO2 mmol/L 27 27 29 BUN mg/dL 18 24* 24* CREATININE mg/dL 0.75 0.80 0.83 GLUCOSE mg/dL 78* 112 118* CALCIUM mg/dL 9.6 9.4 9.9 ABG: Results from last 7 days Lab Units 08/04/24 1135 SOURCE OF OXYGEN High Flow Oxygen Therapy (FiO2) LIVER PROFILE Results from last 7 days Lab Units 08/10/24 0453 08/09/24 0319 08/08/24 0313 ALK PHOS U/L 78 78 78 BILIRUBIN TOTAL mg/dL 0.3 0.3 0.3 PROTEIN TOTAL g/dL 6.7 7.3 7.5 ALT U/L 9 6 9 AST U/L 17 11 16 INR PTT No results found for: PTT Cultures Pneumonia PCR (08/04/24): Haemophilus influenzae, rhinovirus Radiology All relevant/recent imaging was personally reviewed by me. Please see official radiology report for details. CXR (08/03/24) Limited exam due to obesity and hypoinflation lungs and portable technique. There appears to be hypoinflation lungs with pulmonary vascular prominence with prominent interstitial markings with small area of infiltrate or atelectasis right lower lobe and possible left lung base. Advanced degenerative joint disease both shoulders Assessment Acute on chronic hypoxemic respiratory failure /severe hypoxemia doing slowly FiO2 having weaned down from 12 L to 5 L Chronic hypercarbic respiratory failure CAP due to Haemophilus influenzae Rhinovirus URI Possible asthma Trivial smoking history Morbid obesity Possible JOCELIN/OHS/claustrophobi c cannot tolerate PAP therapy Recommendations Oxygen saturations improved quite currently on 2 L keep saturation around 90 percentile as able RAPID tapering and discontinuation of systemic steroid Patient claustrophobic cannot use PAP therapy Incentive spirometry Bronchodilator therapy Continue diuresis as tolerated, keeping her on dry side Antibiotics course completed Okay for discharge from pulmonary standpoint Darrick Marcum Pulmonary Medicine [facility] [1] amLODIPine, 5 mg, Oral, q24h enoxaparin, 30 mg, SubCUTAneous, 2 times per day escitalopram, 10 mg, Oral, Nightly furosemide, 20 mg, Oral, BID ipratropium-albuterol , 1 ampule, Nebulization, q4h WA labetalol, 200 mg, Oral, q24h levothyroxine, 137 mcg, Oral, q24h aydee (more content not included)... Normal [facility] 30on 08-10-2024 30 Problem: Knowledge Deficit Goal: Patient/family/caregi krysta demonstrates understanding of disease process, treatment plan, medications, and discharge instructions Outcome: Progressing Problem: Potential for Compromised Skin Integrity Goal: Skin Integrity is Maintained or Improved Outcome: Progressing Problem: Urinary Incontinence Goal: Perineal skin integrity is maintained or improved Outcome: Progressing Normal [facility] 30 Problem: Knowledge Deficit Goal: Patient/family/caregi krysta demonstrates understanding of disease process, treatment plan, medications, and discharge instructions 08/10/2024144 by Sophy Olmos RN Outcome: Progressing 08/10/2024 014 by Sophy Olmos RN Outcome: Progressing Problem: Potential for Compromised Skin Integrity Goal: Skin Integrity is Maintained or Improved 08/10/2024144 by Sophy Olmos RN Outcome: Progressing 08/10/2024139 by Sophy Omlos RN Outcome: Progressing Goal: Nutritional status is improving 08/10/2024144 by Sophy Olmos RN Outcome: Progressing 08/10/2024139 by Sophy Olmos RN Outcome: Progressing Problem: Urinary Incontinence Goal: Perineal skin integrity is maintained or improved 08/10/2024144 by Sophy Olmos RN Outcome: Progressing 08/10/2024 014 by Sophy Olmos RN Outcome: Progressing Problem: Problem Interventions Goal: Promote nutritional intake 08/10/2024144 by Sophy Olmos RN Outcome: Progressing 08/10/2024 014 by Sophy Olmos RN Outcome: Progressing Normal [facility] 30 Problem: Knowledge Deficit Goal: Patient/family/caregi krysta demonstrates understanding of disease process, treatment plan, medications, and discharge instructions Outcome: Progressing Problem: Potential for Compromised Skin Integrity Goal: Skin Integrity is Maintained or Improved Outcome: Progressing Goal: Nutritional status is improving Outcome: Progressing Problem: Urinary Incontinence Goal: Perineal skin integrity is maintained or improved Outcome: Progressing Problem: Problem Interventions Goal: Promote nutritional intake Outcome: Progressing Normal [facility] [id number] 08-10-2024 [id number] COPD Navigator Note Introduced myself and explained my role. Reviewed Managing COPD at Home handout. Patient sitting upright in chair on 5L O2 with SpO2 93%. RA at baseline. Patient states she is feeling a little better today but not yet at her baseline. Breath sounds bilateral diminished. She complains of a lingering strong congested nonproductive cough. Patient instructed on deep breathing and coughing techniques. Patient has not established with COPD Clinic. No PFTs . Reviewed home respiratory medications. Currently ordered: Albuterol MDI every 4 hours as needed, Qvar twice daily, Duoneb aerosols every 4 hours as needed. Patient has access to all of their medications and uses them as prescribed. Patient able to verbalize proper routine and schedule for inhaler use. Instructed on proper inhaler technique. Discussed Maintenance and Rescue medications. Recommend: Pulmonary Consult Patient agreeable to assistance with scheduling hospital follow-up with pulmonary. Normal [facility] CBC W Auto Differential pane l (Bld)on 08-10-2024 Basophils (Bld) [#/Vol] 0 10*3/uL 0.0 - 0.2 10*3/uL [facility] Basophils/100 WBC (Bld) 0.1 % 0.0 - 2.0 % [facility] Eosinophils (Bld) [#/Vol] 0 10*3/uL 0.0 - 0.5 10*3/uL [facility] Eosinophils/100 WBC (Bld) 0.2 % 0.0 - 6.0 % [facility] Erythrocyte distribution width (RBC) [Ratio] 13.8 % 11.5 - 15.0 % [facility] Hematocrit (Bld) [Volume fraction] 41.1 % 35.0 - 47.0 % [facility] Hemoglobin (Bld) [Mass/Vol] 13.3 g/dL 11.7 - 16.0 g/dL [facility] Immature granulocytes (Bld) [#/Vol] 0.1 10*3/uL High NINF - 0.1 10*3/uL [facility] Immature granulocytes/100 WBC (Bld) 1.5 % 0.0 - 2.0 % [facility] Interpretation and review of laboratory results Abnormal [facility] IPF 1 [facility] Lymphocytes (Bld) [#/Vol] 1.4 10*3/uL 1.0 - 4.3 10*3/uL [facility] Lymphocytes/100 WBC (Bld) 15.4 % 15.0 - 45.0 % [facility] MCH (RBC) [Entitic mass] 28.7 pg 26. 0 - 34.0 pg [facility] MCHC (RBC) [Mass/Vol] 32.4 % 30.5 - 36.0 % [facility] MCV (RBC) [Entitic vol] 88.6 fL 77.0 - 99.0 fL [facility] Monocytes (Bld) [#/Vol] 1 10*3/uL High 0.0 - 0.9 10*3/uL [facility] Monocytes/100 WBC (Bld) 10.3 % 5.0 - 13.0 % [facility] Neutrophils (Bld) [#/Vol] 6.7 10*3/uL 1.8 - 7.5 10*3/uL [facility] Neutrophils/100 WBC (Bld) 72.5 % 38.0 - 82.0 % [facility] Nucleated RBC/100 WBC (Bld) [Ratio] 0 % [facility] Platelet mean volume (Bld) [Entitic vol] 9.1 fL 9.0 - 12.7 fL [facility] Platelets (Bld) [#/Vol] 133 10*3/uL Low 140 - 440 10*3/uL [facility] RBC (Bld) [#/Vol] 4.64 10*6/uL 3.80 - 5.2 0 10*6/uL [facility] WBC (Bld) [#/Vol] 9.2 10*3/uL 3.6 - 10.7 10*3/uL [facility] CBC WITH AUTO DIFFERENTIALon 08-10-2024 Basophils (Bld) [#/Vol] 0.0 10*3/uL Normal 0.0-0.2 [facility] Comment on above: Performed By: #### L [id number] ####Supervisor [employer]: JOHAN BHANDARI ([id number])[facility] [place] ([facility])[address] Basophils/100 WBC (Bld) 0.1 % Normal 0.0-2.0 [facility] Comment on above: Performed By: #### L [id number] ####Supervisor [employer]: JOHAN BHANDARI ([id number])[facility] [place] ([facility])[address] Eosinophils (Bld) [#/Vol] 0.0 10*3/uL Normal 0.0-0.5 [facility] Comment on above: Performed By: #### L [id number] ####Supervisor [employer]: JOHAN BHANDARI ([id number])[facility] [place] ([facility])[address] Eosinophils/100 WBC (Bld) 0.2 % Normal 0.0-6.0 [facility] Comment on above: Performed By: #### L [id number] ####Supervisor [employer]: JOHAN BHANDARI ([id number])[facility] [place] ([facility])[address] Erythrocyte distribution width (RBC) [Ratio] 13.8 % Normal 11.5-15.0 [facility] Comment on above: Performed By: #### L [id number] ####Supervisor [employer]: JOHAN BHANDARI ([id number])[facility] [place] ([facility])[address] Hematocrit (Bld) [Volume fraction] 41.1 % Normal 35.0-47.0 [facility] Comment on above: Performed By: #### L [id number] ####Supervisor [employer]: JOHAN BHANDARI ([id number])[facility] [place] [facility] Hemoglobin (Bld) [Mass/Vol] 13.3 g/dL Normal 11.7-16.0 [facility] Comment on above: Performed By: #### L [id number] ####Supervisor [employer]: JOHAN BHANDARI ([id number])[facility] [place] [facility] IMMATURE GRANS % 1.5 % Normal 0.0-2.0 [facility] Comment on above: Performed By: #### L [id number] ####Supervisor [employer]: JOHAN BHANDARI ([id number])[facility] ([facility] IMMATURE GRANS ABSOLUTE 0.1 10*3/uL High <0.1 [facility] Comment on above: Performed By: #### L [id number] ####Supervisor [employer]: JOHAN BHANDARI ([id number])[facility] ([facility])[address] [place] [address] IPF 1 Normal [facility] Comment on above: Performed By: #### L [id number] ####Supervisor [employer]: JOHAN BHANDARI ([id number])[facility] Lymphocytes (Bld) [#/Vol] 1.4 10*3/uL Normal 1.0-4.3 [facility] Comment on above: Performed By: #### L [id number] ####Supervisor [employer]: JOHAN BHANDARI ([id number])[facility] ([facility] Lymphocytes/100 WBC (Bld) 15.4 % Normal 15.0-45.0 [facility] Comment on above: Performed By: #### L [id number] ####[employer]visor [employer]: JOHAN ALEGRIAAllanCANDY ([id number])RASHAD GUTIERREZJUAN JOSE ([facility])[address] MCH (RBC) [Entitic mass] 28.7 pg Normal 26.0-34.0 [facility] Comment on above: Performed By: #### L [id number] ####Supervisor [employer]: JOHAN THONY ([id number])[facility] ([facility])[address] MCHC 32.4 % Normal 30.5-36.0 [facility] Comment on above: Performed By: #### L [id number] ####Supervisor [employer]: JOHAN THONY ([id number])[facility] [place] ([facility])[address] [place] [address] MCV (RBC) [Entitic vol] 88.6 fL Normal 77.0-99.0 [facility] Comment on above: Performed By: #### L [id number] ####Supervisor [employer]: JOHAN WATTSCANDY ([id number])[facility] [place] ([place])[address] Monocytes (Bld) [#/Vol] 1.0 10*3/uL High 0.0-0.9 [facility] Comment on above: Performed By: #### L [id number] ####Supervisor [employer]: JOHAN BHANDARI ([id number])[facility] [place] ([facility])[address] [place] [address] [place] Monocytes/100 WBC (Bld) 10.3 % Normal 5.0-13.0 [facility] Comment on above: Performed By: #### L [id number] ####Supervisor [employer]: JOHAN WATTSCANDY ([id number])[facility] [place] ([facility])[address] NEUTROPHILS ABSOLUTE 6.7 10*3/uL Normal 1.8-7.5 [facility] Comment on above: Performed By: #### L [id number] ####Supervisor [employer]: JOHAN BHANDARI ([id number])[facility] [place] ([facility])[address] Neutrophils/100 WBC (Bld) 72.5 % Normal 38.0-82.0 [facility] Comment on above: Performed By: #### L [id number] ####Supervisor [employer]: JOHAN BHANDARI ([id number])[facility] [place] ([facility])[address] NRBC 0.0 /100 WBCs Normal 0.0-2.0 [facility] Comment on above: Performed By: #### L [id number] ####Supervisor [employer]: JOHAN BHANDARI ([id number])[facility] [place] ([facility])[address] Platelet mean volume (Bld) [Entitic vol] 9.1 fL Normal 9.0-12.7 [facility] Comment on above: Performed By: #### L [id number] ####Supervisor [employer]: JOHAN BHANDARI ([id number])[facility] [place] ([facility])[address] [place] [address] [place] Platelets (Bld) [#/Vol] 133 10*3/uL Low 140-440 [facility] Comment on above: Performed By: #### L [id number] ####Supervisor [employer]: JOHAN BHANDARI ([id number])[facility] [place] ([facility])[address] [place] [address] [place] RBC (Bld) [#/Vol] 4.64 10*6/uL Normal 3.80-5.20 [facility] Comment on above: Performed By: #### L [id number] ####Supervisor [employer]: JOHAN BHANDARI ([id number])[facility] [place] ([facility])[address] [place] [address] [place] WBC (Bld) [#/Vol] 9.2 10*3/uL Normal 3.6-10.7 [facility] Comment on above: Performed By: #### L [id number] ####Supervisor [employer]: JOHAN BHANDARI ([id number])[facility] [place] ([facility])[address] COMPREHENSIVE METABOLIC PANE Alex 08-10-2024 Albumin [Mass/Vol] 2.8 g/dL Low 3.4-4.8 [facility] Comment on above: Performed By: #### L [id number] ####Supervisor [employer]: JOHAN BHANDARI ([id number])[facility] ([facility])[address] ALP [Catalytic activity/Vol] 78 U/L Normal 40-150 [facility] Comment on above: Performed By: #### L [id number] ####Supervisor [employer]: JOHAN BHANDARI ([id number])[facility] (HLAB)[address] ALT [Catalytic activity/Vol] 9 U/L Normal <30 [facility] Comment on above: Performed By: #### L [id number] ####Supervisor [employer]: JOHAN BHANDARI ([id number])[facility] ([facility])[address] Anion gap [Moles/Vol] 9 mmol/L Normal 3-13 [facility] Comment on above: Performed By: #### L [id number] ####Supervisor [employer]: JOHAN BHANDARI ([id number])[facility] ([facility])[address] AST [Catalytic activity/Vol] 17 U/L Normal <34 [facility] Comment on above: Performed By: #### L [id number] ####Supervisor [employer]: JOHAN BHANDARI ([id number])[facility] ([facility])[address] Bilirubin [Mass/Vol] 0.3 mg/dL Normal <1.2 [facility] Comment on above: Performed By: #### L [id number] ####Supervisor [employer]: JOHAN BHANDARI ([id number])[facility]ITALSuj[facility] G[place]IERREZALONDR[place] ([facility])[address] Calcium [Mass/Vol] 9.4 mg/dL Normal 8.8-10.0 [facility] Comment on above: Performed By: #### L [id number] ####Supervisor [employer]: JOHAN BHANDARI ([id number])[facility] [place] ([facility])[address] Chloride [Moles/Vol] 101 mmol/L Normal 98-107 [facility] Comment on above: Performed By: #### L [id number] ####Supervisor [employer]: JOHAN BHANDARI ([id number])[facility] [place] ([facility])[address] CO2 [Moles/Vol] 27 mmol/L Normal 23-31 [facility] Comment on above: Performed By: #### L [id number] ####Supervisor [employer]: JOHAN BHANDARI ([id number])[facility] ([facility])[address] Creatinine [Mass/Vol] 0.80 mg/dL Normal 0.57-1.11 [facility] Comment on above: Performed By: #### L [id number] ####Supervisor [employer]: JOHAN BHANDARI ([id number])[facility]ITAL[facility] ([facility])[address] GLOMERULAR FILTRATION RATE ML/MIN/1.73 SQ M.PREDICTED 72.3 mL/min/1.73m*2 Normal >60.0 [facility] Comment on above: Result Comment: Calc ulation based on the Chronic Kidney Disease Epidemiology Collaboration (CKD-EPI) equation refit without adjustment for race Performed By: #### L [id number] ####Supervisor [employer]: JOHAN BHANDARI ([id number])[facility] [place] ([facility])[address] Glucose [Mass/Vol] 112 mg/dL Normal 82-115 [facility] Comment on above: Performed By: #### L [id number] ####Supervisor [employer]: JOHAN BHANDARI ([id number])[facility] ([facility])[address] Potassium [Moles/Vol] 4.2 mmol/L Normal 3.5-5.1 [facility] Comment on above: Result Comment: [facility] potassium values may be up to 0.5 mmol/L lower than serum values. Performed By: #### L [id number] ####Supervisor [employer]: JOHAN BHANDARI ([id number])[facility] ([facility])[address] Protein [Mass/Vol] 6.7 g/dL Normal 6.4-8.3 [facility] Comment on above: Performed By: #### L [id number] ####Supervisor [employer]: JOHAN BHANDARI ([id number])[facility] ([facility])[address] [place] [address] Sodium [Moles/Vol] 137 mmol/L Normal 136-145 [facility] Comment on above: Performed By: #### L [id number] ####Supervisor [employer]: JOHAN BHANDARI ([id number])[facility] ([facility])[address] [place] [address] Urea nitrogen [Mass/Vol] 24 mg/dL High 9-23 [facility] Comment on above: Performed By: #### L [id number] ####Supervisor [employer]: JOHAN BHANDARI ([id number])[facility] ([facility])[address] [place] [address] Comprehensive metabolic 1998 panelon 08-10-2024 Albumin [Mass/Vol] 2.8 g/dL Low 3.4 - 4.8 g/dL [facility] ALP [Catalytic activity/Vol] 78 U/L 40 - 150 U/L [facility] ALT [Catalytic activity/Vol] 9 U/L NINF - 30 U/L [facility] Anion gap [Moles/Vol] 9 mmol/L 3 - 13 mmol/L [facility] AST [Catalytic activity/Vol] 17 U/L NINF - 34 U/L [facility] Bilirubin [Mass/Vol] 0.3 mg/dL NINF - 1.2 mg/dL [facility] Calcium [Mass/Vol] 9.4 mg/dL 8.8 - 10. 0 mg/dL [facility] Chloride [Moles/Vol] 101 mmol/L 98 - 10 7 mmol/L [facility] CO2 [Moles/Vol] 27 mmol/L 23 - 31 mmol/L [facility] Creatinine [Mass/Vol] 0.8 mg/dL 0.57 - 1.11 mg/dL [facility] GFR/1.73 sq M.predicted (S/P/Bld) [Vol rate/Area] 72.3 mL/min - PINF [facility] Comment on above: Calculation based on the Chronic Kidney Disease Epidemiology Collaboration (CKD-EPI) equation refit without adjustment for race Glucose [Mass/Vol] 112 mg/dL 82 - 115 mg/dL [facility] Interpretation and review of laboratory results Abnormal [facility] Potassium [Moles/Vol] 4.2 mmol/L 3.5 - 5.1 mmol/L [facility] Comment on above: Plasma potassium gustavo ues may be up to 0.5 mmol/L lower than serum values. Protein [Mass/Vol] 6.7 g/dL 6.4 - 8.3 g/dL [facility] Sodium [Moles/Vol] 137 mmol/L 136 - 145 mmol/L [facility] Urea nitrogen [Mass/Vol] 24 mg/dL High 9 - 23 mg/dL [facility] Progress Noteon 08-10-2024 Progress Note Nutrition Assessment Type and Reason for Visit: Reassess Nutrition Recommendations/Plan: Continue diet as ordered Adult diet Regular -Operations Analyst ordering meals -notified diet office of pt preferences for soft foods. Pt states she does not want to order her own meals at this time. Encourage PO as tolerated Per mnt protocol will add HS snack to encourage adequate protein intake Please continue to record meal intakes in RN Flowsheets ?last bm record 08/05 - monitor RD to monitor labs, weight, skin status, PO intake, bowel function-follow up weekly Malnutrition Assessment: Malnutrition Status: At risk for malnutrition (Comment) (age, decreased po intake) Context: Chronic Illness Findings of the 6 clinical characteristics of malnutrition: Energy Intake: 75% or less estimated energy requirements for 1 month or longer (predicted) Weight Loss: No significant weight loss Body Fat Loss: No significant body fat loss Muscle Mass Loss: No significant muscle mass loss Fluid Accumulation: (moderate) Extremities Pharmacy Teacher Strength: Not Performed Nutrition Assessment: 83 y.o female with acute COPD exacerbation, found to be positive for acute URI with rhinovirus and positive PNA for haemophilus influenzae. Pulmonology following. pt up in chair eating lunch small meal noted -states she is having difficulty chewing/ needs softer foods unable to chew fresh fruit cup but able to chew salad. pt preference for HS snack obtained Estimated Daily Nutrient Needs: Energy Requirements Based On: Kcal/kg Weight Used for Energy Requirements: [place] Weight for Energy Calculation (kg): 45 kg Total Energy Requirements (kcals/day): 3911-5171 (25-30 kcal/kg IBW) Weight Used for Protein Requirements: [place] Weight in Kg Used for Protein Requirements: 45 kg Estimated Total Protein (g/day): 54-68 (1.2-1.5 g protein/kg IBW) Estimated Daily Total Fluid (ml/day): per MD Nutrition Related Findings: +2 nava LE edema, bm 08/05 loose. bun 24, alb 2.8, bnp 890. abx, lasix, protonix, k+, prednisone. wts reviewed -stable last wt 08/06. unable to obtain wt today Wound Type: (Right buttock: Pressure Injury (DTI) - Stable per Wound Care) Current Nutrition Therapies: Adult diet Regular Current Oral Intake Average Meal Intake: 76-100% Average Supplements Intake: None Ordered, Refusing to take Anthropometric Measures: Height: 152.4 cm (5') Current Body Weight: 99.8 kg (220 lb) Weight Source: Stated Admission Body Weight: 99.8 kg (220 lb) Usual Body Weight: 89.4 kg (197 lb) (11/11/23) % Weight Change (Calculated): 11.7 [place] Body Weight (lbs) (Calculated): 100 lbs [place] Body Weight (Kg) (Calculated): 45 kg % [place] Body Weight (Calculated): 220 % BMI (kg/m2) (Calculated): 43 Weight Adjustment For: No Adjustment BMI Categories: Obese Class 3 (BMI 40.0 or greater) Nutrition Diagnosis: Increased nutrient needs related to acute injury/trauma, impaired respiratory function as evidenced by (COPD exacerbation) Nutrition Interventions: Nutrition Education/Counseling: Education not indicated Coordination of Nutrition Care: Continue to monitor while inpatient Plan of Care discussed with: Patient Goals: Previous Goal Met: Progressing toward Goal(s) Goals: PO intake 75% or greater, by next RD assessment Nutrition Monitoring and Evaluation: Behavioral-Environmen miles Outcomes: None Identified Food/Nutrient Intake Outcomes: Food and Nutrient Intake Physical Signs/Symptoms Outcomes: Biochemical Data, Chewing or Swallowing, GI Status, Nausea or Vomiting, Fluid Status or Edema, Hemodynamic Status, Nutrition Focused Physical Findings, Skin, Weight Discharge Planning: Continue current diet Kamilah Rodriguez RD Contact: *[phone] or via Secure Chat [facility] Progress Note [facility] Wound Care CONSULT Note Emily Peralta AGE: 83 y.o. GENDER: female : 1940 Subjective: HISTORY of PRESENT ILLNESS HPI Emily Peralta is a 83 y.o. female who presents for a wound consult. HPI: Ms. Peralta is a 83 y.o. female with past medical history significant for COPD. Patient presented to the emergency room from [facility] facility for shortness of breath. Patient admitted with COPD. Patient reports always has soreness to buttock area. Denies any treatment. Wound Care consulted for pressure injury right buttock. PAST MEDICAL HISTORY Medical History[1] PAST SURGICAL HISTORY Surgical History[2] FAMILY HISTORY Family History[3] SOCIAL HISTORY Social History[4] ALLERGIES Allergies[5] MEDICATIONS Medications Ordered Prior to Encounter[6] REVIEW OF SYSTEMS Pertinent items are noted in HPI. Objective: BP 135/78 (BP Location: Right arm, Patient Position: Lying) Pulse 84 Temp 36.8 ?C (98.2 ?F) (Temporal) Resp 19 Ht 1.524 m (5') Wt 99.8 kg (220 lb) SpO2 93% BMI 42.97 kg/m? PHYSICAL EXAM General appearance: in no apparent distress, well developed and well nourished, and alert, obese Skin: warm and dry Pulmonary: Normal effort, no respiratory distress, no cyanosis Right buttock: 1.0cmx0.3cmxUTD. Non-blanchable purple discoloration noted. No openings. No drainage. Periwound fragile 08/04/24 LABS CBC: Lab Results Component Value Date WBC 9.2 08/10/2024 HGB 13.3 08/10/2024 HCT 41.1 08/10/2024 MCV 88.6 08/10/2024 PLT 133 (L) 08/10/2024 BMP: Lab Results Component Value Date NA 137 08/10/2024 K 4.2 08/10/2024 CL 101 08/10/2024 CO2 27 08/10/2024 BUN 24 (H) 08/10/2024 CREATININE 0.80 08/10/2024 PT/INR: No results found for: PROTIME, INR Prealbumin: No results found for: PREALBUMIN Albumin:No components found for: LABALBU Sed Rate:No results found for: SEDRATE Micro: No components found for: BC Assessment/Plan: Nursing staff to perform dressing change: Right buttock: Pressure Injury (DTI) - Clean with soap and water, apply ET mix then leave FOREIGN CAR MECHANIC TID and PRN - Reposition q2hrs - Incontinent checks q2hrs - Waffle cushion while in chair Nutritional support Wound Care to follow Recommend to follow up at [facility] wound care center after hospital discharge. Any questions or concerns please secure chat [facility] wound/ostomy. Thank you for the consult! I personally obtained the quinn and critical portions of the history and physical exam. I reviewed the labs, imaging studies, and electronic medical record. I reviewed the chart documentation and discussed the patient with treatment team members. I have edited the note to reflect my clinical findings and my assessment and plan. Please note, the time of this note does not reflect the time I saw this patient today, but the time of this documentaton. Portions of this note including HPI, ROS, impression/plan, and examination may have been copied forward from admission to today as to provide important historical information essential in contributing to medical decision making. Documentation has been reviewed and edited as necessary to support clinical decision making for today's visit and to reflect my own independent evaluation of this patient. Decision making for today's visit and to reflect my own independent evaluation of this patient. [1] No past medical history on file. [2] No past surgical history on file. [3] No family history on file. [4] Social History Tobacco Use Smoking status: Never Smokeless tobacco: Never [5] Allergies Allergen Reactions Morphine Hives Other Reaction(s): HIVES, ITCHING , NAUSEA Aspartame Codeine Duloxetine Unknown Lorazepam Oxycodone Wound Dressing Adhesive [6] No current facility-administered medications on file prior to encounter. Current Outpatient Medications on File Prior to Encounter Medication Sig Dispense Refill acetaminophen (Tylenol) 325 MG tablet Take 325 mg by mouth every 8 hours. Albuterol Sulfate 108 (90 Base) MCG/ACT aerosol powder Inhale 2 puffs every 4 hours as needed (SOB/ Wheezing). amLODIPine (Norvasc) 5 MG tablet Take 5 mg by mouth Every 24 hours. baclofen (Lioresal) 10 MG tablet Take 10 mg by mouth every 8 hours. beclomethasone HFA (Qvar) 40 MCG/ACT inhaler Inhale 40 mcg every 12 hours. benzonatate (Tessalon) 100 MG capsule Take 100 mg by mouth 3 times daily as needed for cough. bisacodyl (Dulcolax) 10 MG suppository Insert 10 mg into the rectum Daily as needed for constipation. cefdinir (Omnicef) 300 MG capsule Take 300 mg by mouth 2 times daily. escitalopram (Lexapro) 10 MG tablet Take 10 mg by mouth Nightly. Esomeprazole Magnesium 20 MG tablet delayed-release Take 20 mg by mouth Every 24 hours. furosemide (La (more content not included)... Normal [facility] Progress Note [facility] [place] Pulmonary Medicine [address] [place], [place] [id number] Patient - Emily Peralta, Age - 83 y.o. - 1940 Room Number - B2-255/B2-255 A Consulting - Helen Wan DO Primary Care Physician - No primary care provider on file. Date of Admission - 08/03/2024 4:21 PM Hospital Day - 7 Chief Complaint: shortness of breath Emily Peralta is a 83 y.o. female who pulmonary is following for acute on chronic hypoxemic respiratory failure, CAP Interval History Awake and alert offering no complaint today sitting on the chair 5 L AacuLose saturation 93 percentile She is afebrile Minimal cough No chest pain She is claustrophobic cannot use any PAP therapy All other systems reviewed and negative unless otherwise stated in HPI. Objective Vitals: BP 128/85 (BP Location: Right arm, Patient Position: Sitting) Pulse 73 Temp 36.7 ?C (98 ?F) (Temporal) Resp 18 Ht 5' (1.524 m) Wt 220 lb (99.8 kg) SpO2 93% BMI 42.97 kg/m? Pulse Ox: SpO2 Av % Min: 92 % Max: 94 % Supplemental O2: O2 Flow Rate (L/min): 5 L/min I/O 24HR INTAKE/OUTPUT: Intake/Output Summary (Last 24 hours) at 08/10/2024 09 Last data filed at 08/10/2024 0900 Gross per 24 hour Intake 1050 ml Output 1575 ml Net -525 ml Exam General appearance: On 5 L a cannula saturation 93% time HEENT: Normocephalic, atraumatic. No scleral icterus, no right/left eye discharge. Conjunctivae normal. Pupils equal round and reactive to light. Right external ear normal, Left external ear normal. No congestion. Mouth: mucous membranes moist. Pharynx, Oropharynx is clear. No oropharyngeal exudate. Neck: ROM normal, No thyromegaly. No cervical lymphadenopathy Cardiovascular: Regular rate and rhythm. Heart sounds normal. Negative for murmur, friction rub, or gallop. Pulmonary: Effort normal, no respiratory distress. No stridor. No wheezing Decreased breath sound bilaterally. Abdomen: Soft, no distention, no abdominal tenderness. No guarding. No masses. Musculoskeletal: ROM normal. Skin: Warm and dry. Skin is not jaundiced. No rash Extremities: No clubbing or cyanosis. 1+ pitting lower extremity edema. Neurological: No focal deficits. Alert and oriented x person, place and time. Mental status is at baseline. No motor weakness. Psychiatric: Mood, behavior, thought content normal. Cooperative with exam. Medications Current Medications Scheduled Meds[1] PRN Mediations PRN Meds[2] IV Drips/Infusions Continuous Meds[3] Labs CBC Results from last 7 days Lab Units 08/10/24 0453 WBC AUTO 10*3/uL 9.2 HEMOGLOBIN g/dL 13.3 HEMATOCRIT % 41.1 PLATELETS 10*3/uL 133* BMP: Results from last 7 days Lab Units 08/10/24 0453 08/09/24 0319 08/08/24 0313 SODIUM mmol/L 137 138 139 POTASSIUM mmol/L 4.2 4.5 4.7 CHLORIDE mmol/L 101 99 100 CO2 mmol/L 27 29 29 BUN mg/dL 24* 24* 21 CREATININE mg/dL 0.80 0.83 0.80 GLUCOSE mg/dL 112 118* 118* CALCIUM mg/dL 9.4 9.9 9.8 ABG: Results from last 7 days Lab Units 08/04/24 1135 SOURCE OF OXYGEN High Flow Oxygen Therapy (FiO2) LIVER PROFILE Results from last 7 days Lab Units 08/10/24 0453 08/09/24 0319 08/08/24 0313 ALK PHOS U/L 78 78 78 BILIRUBIN TOTAL mg/dL 0.3 0.3 0.3 PROTEIN TOTAL g/dL 6.7 7.3 7.5 ALT U/L 9 6 9 AST U/L 17 11 16 INR PTT No results found for: PTT Cultures Pneumonia PCR (08/04/24): Haemophilus influenzae, rhinovirus Radiology All relevant/recent imaging was personally reviewed by me. Please see official radiology report for details. CXR (08/03/24) Limited exam due to obesity and hypoinflation lungs and portable technique. There appears to be hypoinflation lungs with pulmonary vascular prominence with prominent interstitial markings with small area of infiltrate or atelectasis right lower lobe and possible left lung base. Advanced degenerative joint disease both shoulders Assessment Acute on chronic hypoxemic respiratory failure /severe hypoxemia doing slowly FiO2 having weaned down from 12 L to 5 L Chronic hypercarbic respiratory failure CAP due to Haemophilus influenzae Rhinovirus URI Possible asthma Trivial smoking history Morbid obesity Possible JOCELIN/OHS/claustrophobi c cannot tolerate PAP therapy Recommendations Improving slowly/FiO2 has been weaned down to 5 L will continue to wean FiO2 keep saturation around 90 percentile as able RAPID tapering and discontinuation of systemic steroid FiO2 was weaned down to 5 L keep saturation between 90-92 percentile Patient claustrophobic cannot use PAP therapy Incentive spirometry Bronchodilator therapy Continue diuresis as tolerated, keeping her on dry side On p.o. cephalexin tolerating well Darrick Marcum Pulmonary Medicine [facility] [1] amLODIPine, 5 mg, Oral, q24h cephalexin, 1,000 mg, Oral, q8h enoxaparin, 30 mg, SubCUTAneous, 2 times per day escita (more content not included)... Normal [facility] Progress Note PHYSICAL THERAPY [facility] Treatment Note Name/MRN: Emily Peralta ([id number]) Date of : 1940 Age: 83 y.o. Room/Bed: B2-255/B2-255 A Visit #: 4 out of 8 (visits added by PT due to continued need for acute skilled PT) Discharge Recommendation: [facility] Equipment Needed: No Assessment Pt demos improvement in functional mobility and progress toward therapy goals. Pt completes functional transfers at CGA, CGA for ambulation with FWW. Pt able to progress ambulation distance this session. SpO2 >93% throughout. Pt will continue to benefit from acute skilled PT to address current deficits. Recommendation for SNF remains appropriate. Goals updated at this time due to pt progress. Subjective Pt pleasant and agreeable to therapy session Pain: 0-10 pain scale: 5/10 Location: LBP Medical Precautions: No active isolations Proper PPE donned/doffed in accordance with facility standards. Fall Risk: Sotomayor Fall Risk Score: 85 (Low Risk) Sotomayor Fall Risk Score: 85 (High Risk) Precautions/Restricti ons: Lines/Drains/Airways: 5L NC Fall Precautions Overall Cognitive Status: Exceptions - Memory: decreased recall of recent events and decreased short term memory - Problem solving: assistance required to generate solutions, assistance required to implement solutions, assistance required to identify errors made, assistance required to correct errors made, and decreased awareness of errors - Sequencing: requires cues for some Overall Orientation Status: Oriented x4 Family/Caregiver Present: none Objective Transfers/Mobility Sit to stand: Contact Guard Stand to sit: Contact Guard X4 from recliner, x1 from EOB. Cues provided for hand placement, alignment of FWW to surface. Good carryover of cues noted. CGA provided to monitor safety and stability. Device(s) used: Front wheeled walker Ambulation Ambulation 1 Assistive device(s) used: Front wheeled walker Assist level: Contact Guard Distance (ft): ~12 feet x, ~30 feet x1, ~25 feet x2 Quality of gait: No LOB, reciprocal stepping, shuffling, slow moses Pt demos forward flexed posture, short, shuffling gait. Cues for upright posture, maintain TSERING within FWW, pursed lip breathing. Pt requires increased time to complete. Seated rest breaks required between trials. CGA provided throughout to monitor safety and stability. Balance During Session: Posture: fair Standing - Static: Contact Guard Standing - Dynamic: Contact Guard Static standing no UE assist- ~30 seconds, 1 minute. CGA provided throughout with mild instability with cues provided for upright posture. Pt fearful of falling, encouragement provided. Plan Continue acute PT per plan of care. Safety/Education Safety Safety Devices in place: All fall risk precautions in place, call light within reach, left in chair, gait belt, patient at risk for falls, nurse notified, and no alarms engaged upon entry Restraints: N/A Education Education Given To: patient Education Provided: PT Role, PT Goals, Gait Training, Plan of Care, Transfer Training, Energy Conservation, Equipment, Benefits of Increasing Activity, and Breathing Techniques Education Method: Verbal and Demonstration Barriers to Learning: None Education Outcome: Verbalized Understanding, Demonstrated Understanding, and Continued Education Needed Outcome Measures AM-PAC AM-PAC Inpatient Mobility Raw Score (No Stairs) : 15 JH-HLM JH-HLM Score: Walked 25 ft or more (i.e. walked outside of room) Goals Patient Stated Goal: to get out of here Encounter Problems Encounter Problems (Active) Balance Patient will maintain dynamic standing balance for 3-5 minutes with SBA in order to demonstrate decreased risk of falling. (Progressing) Start: 08/04/24 Expected End: 08/11/24 Exercise Patient will complete lower extremity exercises for 1-2 sets / 5-10 reps in order to improve strength and activity tolerance for mobility. (Not Addressed) Start: 08/04/24 Expected End: 08/11/24 Mobility Patient will ambulate 15 feet with SBA and rolling walker in order to improve safety and independence with mobility. (Completed) Start: 08/04/24 Expected End: 08/11/24 Resolved: 08/10/24 Updated to: Patient will ambulate 50 feet with SBA and rolling walker in order to improve safety and independence with mobility. Update reason: pt progress Patient will ambulate 50 feet with SBA and rolling walker in order to improve safety and independence with mobility. (Progressing) Start: 08/10/24 Expected End: 08/11/24 Transfers Patient will perform bed mobility with modified independence in order to improve independence and prepare for out of bed mobility. (Not Addressed) Start: 08/04/24 Expected End: 08/11/24 Patient will complete functional transfer with rolling walker with CGA in order to prepare for ambulation. (Completed) Start: 08/04/24 Expected End: 08/11/24 Resolve (more content not included)... Normal [facility] 30on 08-09-2024 Problem: Knowledge Deficit Goal: Patient/family/caregi kyrsta demonstrates understanding of disease process, treatment plan, medications, and discharge instructions Outcome: Progressing Problem: Potential for Compromised Skin Integrity Goal: Skin Integrity is Maintained or Improved Outcome: Progressing Goal: Nutritional status is improving Outcome: Progressing Problem: Urinary Incontinence Goal: Perineal skin integrity is maintained or improved Outcome: Progressing Problem: Problem Interventions Goal: Promote nutritional intake Outcome: Progressing Normal [facility] 30 Problem: Knowledge Deficit Goal: Patient/family/caregi krysta demonstrates understanding of disease process, treatment plan, medications, and discharge instructions 08/09/2024 020 by Sophy Olmos RN Outcome: Progressing 08/09/2024154 by Sophy Olmos RN Outcome: Progressing Problem: Potential for Compromised Skin Integrity Goal: Skin Integrity is Maintained or Improved 08/09/2024 020 by Sophy Olmos RN Outcome: Progressing 08/09/2024 015 by Sophy Olmos RN Outcome: Progressing Goal: Nutritional status is improving 08/09/2024 020 by Sophy Olmos RN Outcome: Progressing 08/09/2024 015 by Sophy Olmos RN Outcome: Progressing Problem: Urinary Incontinence Goal: Perineal skin integrity is maintained or improved 08/09/2024 020 by Sophy Olmos RN Outcome: Progressing 08/09/2024 015 by Sophy Olmos RN Outcome: Progressing Problem: Problem Interventions Goal: Promote nutritional intake 08/09/2024 0207 by Sophy Olmos RN Outcome: Progressing 08/09/2024 015 by Sophy Olmos RN Outcome: Progressing Normal [facility] 30 Problem: Knowledge Deficit Goal: Patient/family/caregi krysta demonstrates understanding of disease process, treatment plan, medications, and discharge instructions Outcome: Progressing Problem: Potential for Compromised Skin Integrity Goal: Skin Integrity is Maintained or Improved Outcome: Progressing Goal: Nutritional status is improving Outcome: Progressing Problem: Urinary Incontinence Goal: Perineal skin integrity is maintained or improved Outcome: Progressing Problem: Problem Interventions Goal: Promote nutritional intake Outcome: Progressing Normal [facility] [id number] 08-09-2024 [id number] Sent updated notes t o return back to [facility] via [facility] per TCC request. Await review and response regarding ability to accept. TCC notified. Normal [facility] CBC W Auto Differential pane l (Bld)on 08-09-2024 Basophils (Bld) [#/Vol] 0 10*3/uL 0.0 - 0.2 10*3/uL [facility] Basophils/100 WBC (Bld) 0.2 % 0.0 - 2.0 % [facility] Eosinophils (Bld) [#/Vol] 0 10*3/uL 0.0 - 0.5 10*3/uL [facility] Eosinophils/100 WBC (Bld) 0 % 0.0 - 6.0 % [facility] Erythrocyte distribution width (RBC) [Ratio] 13.6 % 11.5 - 15.0 % [facility] Hematocrit (Bld) [Volume fraction] 43 % 35.0 - 47.0 % [facility] Hemoglobin (Bld) [Mass/Vol] 14.1 g/dL 11.7 - 16.0 g/dL [facility] Immature granulocytes (Bld) [#/Vol] 0.2 10*3/uL High NINF - 0.1 10*3/uL [facility] Immature granulocytes/100 WBC (Bld) 1.8 % 0.0 - 2.0 % [facility] Interpretation and review of laboratory results Abnormal [facility] Lymphocytes (Bld) [#/Vol] 1 10*3/uL 1.0 - 4.3 10*3/uL [facility] Lymphocytes/100 WBC (Bld) 10.9 % Low 15.0 - 45.0 % [facility] MCH (RBC) [Entitic mass] 29 pg 26. 0 - 34.0 pg [facility] MCHC (RBC) [Mass/Vol] 32.8 % 30.5 - 36.0 % [facility] MCV (RBC) [Entitic vol] 88.3 fL 77.0 - 99.0 fL [facility] Monocytes (Bld) [#/Vol] 1 10*3/uL High 0.0 - 0.9 10*3/uL [facility] Monocytes/100 WBC (Bld) 11.1 % 5.0 - 13.0 % [facility] Neutrophils (Bld) [#/Vol] 7 10*3/uL 1.8 - 7.5 10*3/uL [facility] Neutrophils/100 WBC (Bld) 76 % 38.0 - 82.0 % [facility] Nucleated RBC/100 WBC (Bld) [Ratio] 0 % [facility] Platelet mean volume (Bld) [Entitic vol] 9.5 fL 9.0 - 12.7 fL [facility] Platelets (Bld) [#/Vol] 146 10*3/uL 140 - 440 10*3/uL [facility] RBC (Bld) [#/Vol] 4.87 10*6/uL 3.80 - 5.2 0 10*6/uL [facility] WBC (Bld) [#/Vol] 9.3 10*3/uL 3.6 - 10.7 10*3/uL [facility] CBC WITH AUTO DIFFERENTIALon 08-09-2024 Basophils (Bld) [#/Vol] 0.0 10*3/uL Normal 0.0-0.2 [facility] Comment on above: Performed By: #### L [id number] ####Supervisor [employer]: JOHAN BHANDARI ([id number])[facility] ([facility])[address] [place] [address] Basophils/100 WBC (Bld) 0.2 % Normal 0.0-2.0 [facility] Comment on above: Performed By: #### L [id number] ####[employer]visor [employer]: JOHAN BHANDARI ([id number])[facility] ([facility])[address] Eosinophils (Bld) [#/Vol] 0.0 10*3/uL Normal 0.0-0.5 [facility] Comment on above: Performed By: #### L [id number] ####Supervisor [employer]: JOHAN BHANDARI ([id number])[facility])[address] Eosinophils/100 WBC (Bld) 0.0 % Normal 0.0-6.0 [facility] Comment on above: Performed By: #### L [id number] ####Supervisor [employer]: JOHAN BHANDARI ([id number])[facility] [place] ([facility])[address] Erythrocyte distribution width (RBC) [Ratio] 13.6 % Normal 11.5-15.0 [facility] Comment on above: Performed By: #### L [id number] ####Supervisor [employer]: JOHAN BHANDARI ([id number])[facility] [place] ([facility])[address] Hematocrit (Bld) [Volume fraction] 43.0 % Normal 35.0-47.0 [facility] Comment on above: Performed By: #### L [id number] ####Supervisor [employer]: JOHAN BHANDARI ([id number])[facility] ([facility])[address] Hemoglobin (Bld) [Mass/Vol] 14.1 g/dL Normal 11.7-16.0 [facility] Comment on above: Performed By: #### L [id number] ####Supervisor [employer]: JOHAN BHANDARI ([id number])[facility] ([facility])[address] [place] [address] IMMATURE GRANS % 1.8 % Normal 0.0-2.0 [facility] Comment on above: Performed By: #### L [id number] ####Supervisor [employer]: JOHAN BHANDARI ([id number])[facility] ([facility])[address] IMMATURE GRANS ABSOLUTE 0.2 10*3/uL High <0.1 [facility] Comment on above: Performed By: #### L [id number] ####[employer]visor [employer]: JOHAN BHANDARI ([id number])[facility] ([facility])[address] [place] [address] [place] Lymphocytes (Bld) [#/Vol] 1.0 10*3/uL Normal 1.0-4.3 [facility] Comment on above: Performed By: #### L [id number] ####Supervisor [employer]: JOHAN THONY ([id number])[facility] [place] ([facility])[address] Lymphocytes/100 WBC (Bld) 10.9 % Low 15.0-45.0 [facility] Comment on above: Performed By: #### L [id number] ####[employer]visor [employer]: JOHAN THONY ([id number])[facility] [place] ([facility])[address] MCH (RBC) [Entitic mass] 29.0 pg Normal 26.0-34.0 [facility] Comment on above: Performed By: #### L [id number] ####Supervisor [employer]: JOHAN THONY ([id number])[facility] ([facility])[address] MCHC 32.8 % Normal 30.5-36.0 [facility] Comment on above: Performed By: #### L [id number] ####[employer]visor [employer]: JOHAN THONY ([id number])[facility] [place] ([facility])[address] MCV (RBC) [Entitic vol] 88.3 fL Normal 77.0-99.0 [facility] Comment on above: Performed By: #### L [id number] ####Supervisor [employer]: JOHAN ALEGRIAJOHNNY ([id number])[facility] [place] ([facility])[address] Monocytes (Bld) [#/Vol] 1.0 10*3/uL High 0.0-0.9 [facility] Comment on above: Performed By: #### L [id number] ####[employer]visor [employer]: JOHAN THONY ([id number])[facility] [place] ([facility])[address] [place] [address] [place] Monocytes/100 WBC (Bld) 11.1 % Normal 5.0-13.0 [facility] Comment on above: Performed By: #### L [id number] ####Supervisor [employer]: JOHAN BHANDARI ([id number])[facility] [place] ([facility])[address] NEUTROPHILS ABSOLUTE 7.0 10*3/uL Normal 1.8-7.5 [facility] Comment on above: Performed By: #### L [id number] ####Supervisor [employer]: JOHAN BHANDARI ([id number])[facility] [place] ([facility])[address] Neutrophils/100 WBC (Bld) 76.0 % Normal 38.0-82.0 [facility] Comment on above: Performed By: #### L [id number] ####Supervisor [employer]: JOHAN BHANDARI ([id number])[facility] [place] ([facility])[address] NRBC 0.0 /100 WBCs Normal 0.0-2.0 [facility] Comment on above: Performed By: #### L [id number] ####Supervisor [employer]: JOHAN BHANDARI ([id number])[facility] [place] ([facility])[address] Platelet mean volume (Bld) [Entitic vol] 9.5 fL Normal 9.0-12.7 [facility] Comment on above: Performed By: #### L [id number] ####Supervisor [employer]: JOHAN BHANDARI ([id number])[facility] [place] ([facility])[address] [place] [address] [place] Platelets (Bld) [#/Vol] 146 10*3/uL Normal 140-440 [facility] Comment on above: Performed By: #### L [id number] ####Supervisor [employer]: JOHAN BHANDARI ([id number])[facility] [place] ([facility])[address] [place] [address] [place] RBC (Bld) [#/Vol] 4.87 10*6/uL Normal 3.80-5.20 [facility] Comment on above: Performed By: #### L [id number] ####Supervisor [employer]: JOHAN BHANDARI ([id number])[facility] [place] ([facility])[address] WBC (Bld) [#/Vol] 9.3 10*3/uL Normal 3.6-10.7 [facility] Comment on above: Performed By: #### L [id number] ####Supervisor [employer]: JOHAN BHANDARI ([id number])[facility] ([facility])[address] COMPREHENSIVE METABOLIC PANE Alex 08-09-2024 Albumin [Mass/Vol] 2.9 g/dL Low 3.4-4.8 [facility] Comment on above: Performed By: #### L [id number] ####Supervisor [employer]: JOHAN BHANDARI ([id number])[facility] [place] ([facility])[address] ALP [Catalytic activity/Vol] 78 U/L Normal 40-150 [facility] Comment on above: Performed By: #### L [id number] ####Supervisor [employer]: JOHAN BHANDARI ([id number])[facility] [place] ([facility])[address] ALT [Catalytic activity/Vol] 6 U/L Normal <30 [facility] Comment on above: Performed By: #### L [id number] ####Supervisor [employer]: JOHAN BHANDARI ([id number])[facility] [place] ([facility])[address] Anion gap [Moles/Vol] 10 mmol/L Normal 3-13 [facility] Comment on above: Performed By: #### L [id number] ####Supervisor [employer]: JOHAN BHANDARI ([id number])[facility] [place] ([facility])[address] AST [Catalytic activity/Vol] 11 U/L Normal <34 [facility] Comment on above: Performed By: #### L [id number] ####Supervisor [employer]: JOHAN BHANDARI ([id number])[facility] [place] ([facility])[address] Bilirubin [Mass/Vol] 0.3 mg/dL Normal <1.2 [facility] Comment on above: Performed By: #### L [id number] ####Supervisor [employer]: JOHAN BHANDARI ([id number])[facility] Calcium [Mass/Vol] 9.9 mg/dL Normal 8.8-10.0 [facility] Comment on above: Performed By: #### L [id number] ####Supervisor [employer]: JOHAN BHANDARI ([id number])[facility] Chloride [Moles/Vol] 99 mmol/L Normal 98-107 [facility] Comment on above: Performed By: #### L [id number] ####Supervisor [employer]: JOHAN BHANDARI ([id number])[facility] CO2 [Moles/Vol] 29 mmol/L Normal 23-31 [facility] Comment on above: Performed By: #### L [id number] ####Supervisor [employer]: JOHAN BHANDARI ([id number])[facility] Creatinine [Mass/Vol] 0.83 mg/dL Normal 0.57-1.11 [facility] Comment on above: Performed By: #### L [id number] ####Supervisor [employer]: JOHAN BHANDARI ([id number])[facility] ([facility])[address] STRE[address] GLOMERULAR FILTRATION RATE ML/MIN/1.73 SQ M.PREDICTED 69.2 mL/min/1.73m*2 Normal >60.0 [facility] Comment on above: Result Comment: Calc ulation based on the Chronic Kidney Disease Epidemiology Collaboration (CKD-EPI) equation refit without adjustment for race Performed By: #### L [id number] ####Supervisor [employer]: JOHAN BHANDARI ([id number])[facility] HOSPITALSujata GUTIERREZJUAN JOSE (SBHLAB)[address] Glucose [Mass/Vol] 118 mg/dL High 82-115 [facility] Comment on above: Performed By: #### L [id number] ####Supervisor [employer]: JOHAN BHANDARI ([id number])[facility] HOSPITALSujata [facility] MEDICAL CENTERIsabela (SBHLAB)[address] Potassium [Moles/Vol] 4.5 mmol/L Normal 3.5-5.1 [facility] Comment on above: Result Comment: [facility] potassium values may be up to 0.5 mmol/L lower than serum values. Performed By: #### L [id number] ####Supervisor [employer]: JOHAN BHANDARI ([id number])[facility] HOSPITALSujata BARBALONDRAN (SBHLAB)[address] Protein [Mass/Vol] 7.3 g/dL Normal 6.4-8.3 [facility] Comment on above: Performed By: #### L [id number] ####Supervisor [employer]: JOHAN BHANDARI ([id number])[facility]OSPITALA [facility] (SBHLAB)[address] Sodium [Moles/Vol] 138 mmol/L Normal 136-145 [facility] Comment on above: Performed By: #### L [id number] ####Supervisor [employer]: JOHAN BHANDARI ([id number])[facility]OSPITALA [facility] (SBHLAB)[address] [place] [address] [place] Urea nitrogen [Mass/Vol] 24 mg/dL High 9-23 [facility] Comment on above: Performed By: #### L [id number] ####Supervisor [employer]: JOHAN BHANDARI ([id number])[facility] (SBHLAB)[address] Comprehensive metabolic 1998 panelon 08-09-2024 Albumin [Mass/Vol] 2.9 g/dL Low 3.4 - 4.8 g/dL [facility] ALP [Catalytic activity/Vol] 78 U/L 40 - 150 U/L [facility] ALT [Catalytic activity/Vol] 6 U/L NINF - 30 U/L [facility] Anion gap [Moles/Vol] 10 mmol/L 3 - 13 mmol/L [facility] AST [Catalytic activity/Vol] 11 U/L NINF - 34 U/L [facility] Bilirubin [Mass/Vol] 0.3 mg/dL NINF - 1.2 mg/dL [facility] Calcium [Mass/Vol] 9.9 mg/dL 8.8 - 10. 0 mg/dL [facility] Chloride [Moles/Vol] 99 mmol/L 98 - 10 7 mmol/L [facility] CO2 [Moles/Vol] 29 mmol/L 23 - 31 mmol/L [facility] Creatinine [Mass/Vol] 0.83 mg/dL 0.57 - 1.11 mg/dL [facility] GFR/1.73 sq M.predicted (S/P/Bld) [Vol rate/Area] 69.2 mL/min - PINF [facility] Comment on above: Calculation based on the Chronic Kidney Disease Epidemiology Collaboration (CKD-EPI) equation refit without adjustment for race Glucose [Mass/Vol] 118 mg/dL High 82 - 115 mg/dL [facility] Interpretation and review of laboratory results Abnormal [facility] Potassium [Moles/Vol] 4.5 mmol/L 3.5 - 5.1 mmol/L [facility] Comment on above: Plasma potassium gustavo ues may be up to 0.5 mmol/L lower than serum values. Protein [Mass/Vol] 7.3 g/dL 6.4 - 8.3 g/dL [facility] Sodium [Moles/Vol] 138 mmol/L 136 - 145 mmol/L [facility] Urea nitrogen [Mass/Vol] 24 mg/dL High 9 - 23 mg/dL [facility] Progress Noteon 08-09-2024 Progress Note [facility] [place] Pulmonary Medicine [address] [place] [id number] Patient - Emily Peralta, Age - 83 y.o. - 1940 Room Number - B2-255/[id number] A Consulting - Tate Givens MD Primary Care Physician - No primary care provider on file. [id number] Date of Admission - 08/03/2024 4:21 PM Hospital Day - 6 Chief Complaint: shortness of breath Emily Peralta is a 83 y.o. female who pulmonary is following for acute on chronic hypoxemic respiratory failure, CAP Interval History Awake and alert currently sitting on the chair on 6 L a cannula saturation was 99 percentile, FiO2 was dropped to 5 L after 20 minutes saturation was 91 to 93% Patient feeling better however is still short of breath although FiO2 has been weaned down from 12 L to 5 L She is afebrile She is claustrophobic cannot use any PAP therapy All other systems reviewed and negative unless otherwise stated in HPI. Objective Vitals: BP 146/78 Pulse 66 Temp 36.6 ?C (97.9 ?F) (Temporal) Resp 18 Ht 5' (1.524 m) Wt 220 lb (99.8 kg) SpO2 95% BMI 42.97 kg/m? Pulse Ox: SpO2 Av.3 % Min: 93 % Max: 96 % Supplemental O2: O2 Flow Rate (L/min): 6 L/min I/O 24HR INTAKE/OUTPUT: Intake/Output Summary (Last 24 hours) at 08/09/2024 0836 Last data filed at 08/09/2024 0556 Gross per 24 hour Intake 520 ml Output 2200 ml Net -1680 ml Exam General appearance: Awake, alert, currently on 6 L a cannula HEENT: Normocephalic, atraumatic. No scleral icterus, no right/left eye discharge. Conjunctivae normal. Pupils equal round and reactive to light. Right external ear normal, Left external ear normal. No congestion. Mouth: mucous membranes moist. Pharynx, Oropharynx is clear. No oropharyngeal exudate. Neck: ROM normal, No thyromegaly. No cervical lymphadenopathy Cardiovascular: Regular rate and rhythm. Heart sounds normal. Negative for murmur, friction rub, or gallop. Pulmonary: Effort normal, no respiratory distress. No stridor. No wheezing Decreased breath sound bilaterally. Abdomen: Soft, no distention, no abdominal tenderness. No guarding. No masses. Musculoskeletal: ROM normal. Skin: Warm and dry. Skin is not jaundiced. No rash Extremities: No clubbing or cyanosis. 1+ pitting lower extremity edema. Neurological: No focal deficits. Alert and oriented x person, place and time. Mental status is at baseline. No motor weakness. Psychiatric: Mood, behavior, thought content normal. Cooperative with exam. Medications Current Medications Scheduled Meds[1] PRN Mediations PRN Meds[2] IV Drips/Infusions Continuous Meds[3] Labs CBC Results from last 7 days Lab Units 08/09/24 031 WBC AUTO 10*3/uL 9.3 HEMOGLOBIN g/dL 14.1 HEMATOCRIT % 43.0 PLATELETS 10*3/uL 146 BMP: Results from last 7 days Lab Units 08/09/24 03108/08/24 03108/07/24 0125 SODIUM mmol/L 138 139 138 POTASSIUM mmol/L 4.5 4.7 4.4 CHLORIDE mmol/L 99 100 101 CO2 mmol/L 29 29 26 BUN mg/dL 24* 21 28* CREATININE mg/dL 0.83 0.80 0.79 GLUCOSE mg/dL 118* 118* 74* CALCIUM mg/dL 9.9 9.8 9.8 ABG: Results from last 7 days Lab Units 08/04/24 1135 SOURCE OF OXYGEN High Flow Oxygen Therapy (FiO2) LIVER PROFILE Results from last 7 days Lab Units 08/09/2431808/08/24 0313 08/07/24 0125 ALK PHOS U/L 78 78 78 BILIRUBIN TOTAL mg/dL 0.3 0.3 0.4 PROTEIN TOTAL g/dL 7.3 7.5 7.2 ALT U/L 6 9 10 AST U/L 11 16 22 INR PTT No results found for: PTT Cultures Pneumonia PCR (08/04/24): Haemophilus influenzae, rhinovirus Radiology All relevant/recent imaging was personally reviewed by me. Please see official radiology report for details. CXR (08/03/24) Limited exam due to obesity and hypoinflation lungs and portable technique. There appears to be hypoinflation lungs with pulmonary vascular prominence with prominent interstitial markings with small area of infiltrate or atelectasis right lower lobe and possible left lung base. Advanced degenerative joint disease both shoulders Assessment Acute on chronic hypoxemic respiratory failure /severe hypoxemia doing slowly FiO2 having weaned down from 12 L to 5 L Chronic hypercarbic respiratory failure CAP due to Haemophilus influenzae Rhinovirus URI Possible asthma Trivial smoking history Morbid obesity Possible JOCELIN/OHS/claustrophobi c cannot tolerate PAP therapy Recommendations Improving slowly IV antibiotics ceftriaxone and IV steroid will switch to p.o. prednisone low-dose taper off quickly FiO2 was weaned down to 5 L keep saturation between 90-92 percentile Patient claustrophobic cannot use PAP therapy Incentive spirometry Bronchodilator therapy Continue diuresis as tolerated, keeping her on dry side Darrick Marcum Pulmonary Medicine [facility] [1] amLODIPine, 5 mg, Oral, q24h cefTRIAXone, 1,000 mg, IntraVENous, q24h enoxaparin, 30 mg, SubCUTAneous, 2 times per day escitalo (more content not included)... Normal [facility] Progress Note PHYSICAL THERAPY [facility] Treatment Note Name/MRN: Emily Peralta ([id number]) Date of : 1940 Age: 83 y.o. Room[facility]: [facility] A Visit #: 3 out of 5 Discharge Recommendation: [facility] Equipment Needed: No Assessment Pt continues to demonstrate decreased functional mobility and demos limited participation in session. Pt completed x1 sit to stand transfer with Breana. Pt tolerated some seated exercises however reports R knee pain and coughing fits are limiting. Pt declined further mobility and requested assist to reposition in chair to get more comfortable. Pt will benefit from continued skilled PT to address current functional deficits. Recommend SNF. Subjective Patient agreeable to therapy. Nurse notified of pt's request for cough medication. Vitals: BP 146/78, SpO2 95%, HR 66bpm Pain: Pt reports R knee pain during exercises but did not rate pain level numerically. Medical Precautions: Droplet Proper PPE donned/doffed in accordance with facility standards. Fall Risk: Sotomayor Fall Risk Score: 85 (Low Risk) Sotomayor Fall Risk Score: 85 (High Risk) Precautions/Restricti ons: Lines/Drains/Airways: 12L HFNC Fall Precautions Overall Cognitive Status: Exceptions - Attention span: attends with cues to redirect - Problem solving: assistance required to generate solutions and assistance required to implement solutions Family/Caregiver Present: none Objective Transfers/Mobility Sit to stand: Min Assist Stand to sit: Min Assist From recliner. Pt demos proper hand placement. Breana required for overall stability when ascending/descending. Pt only stood momentarily and declined further mobility. Device(s) used: None Exercises Exercises Heelslides: 1 set / 15 reps B LE in sitting with graded manual resistance Hip Adduction: 1 set / 15 reps B LE in sitting Knee Long Arc Quad: 1 set / 15 reps B LE in sitting Comments: Exercises performed to improve strength and promote joint mobility in prep for transfers/ambulation. Cues to improve technique and for attention to task. Pt reports R knee pain is limiting. Pt also demos coughing fits and states I'm miserable. Plan Continue acute PT per plan of care. Safety/Education Safety Safety Devices in place: All fall risk precautions in place, call light within reach, left in chair, patient at risk for falls, nurse notified, and no alarms engaged upon entry Restraints: No Education Education Given To: patient Education Provided: PT Role, PT Goals, Plan of Care, Home Exercise Program, and Transfer Training Education Method: Verbal Barriers to Learning: None Education Outcome: Verbalized Understanding, Demonstrated Understanding, and Continued Education Needed Outcome Measures AM-PAC AM-PAC Inpatient Mobility Raw Score (No Stairs) : 15 JH-HLM JH-HLM Score: Transferred to chair/commode Goals Patient Stated Goal: to feel better Encounter Problems Encounter Problems (Active) Balance Patient will maintain dynamic standing balance for 3-5 minutes with SBA in order to demonstrate decreased risk of falling. (Not Addressed) Start: 08/04/24 Expected End: 08/11/24 Exercise Patient will complete lower extremity exercises for 1-2 sets / 5-10 reps in order to improve strength and activity tolerance for mobility. (Progressing) Start: 08/04/24 Expected End: 08/11/24 Mobility Patient will ambulate 15 feet with SBA and rolling walker in order to improve safety and independence with mobility. (Not Addressed) Start: 08/04/24 Expected End: 08/11/24 Transfers Patient will perform bed mobility with modified independence in order to improve independence and prepare for out of bed mobility. (Not Addressed) Start: 08/04/24 Expected End: 08/11/24 Patient will complete functional transfer with rolling walker with CGA in order to prepare for ambulation. (Progressing) Start: 08/04/24 Expected End: 08/11/24 Therapy Time Individual Co-treatment Time In 0746 Time Out 0802 Minutes 16 Timed Code Treatment Minutes: 16 Minutes (x1 ther ex) Clary Wilson PTA Normal [facility] 30on 08-08-2024 30 Problem: Knowledge Deficit Goal: Patient/family/caregi krysta demonstrates understanding of disease process, treatment plan, medications, and discharge instructions Outcome: Progressing Problem: Potential for Compromised Skin Integrity Goal: Skin Integrity is Maintained or Improved Outcome: Progressing Problem: Urinary Incontinence Goal: Perineal skin integrity is maintained or improved Outcome: Progressing Problem: Problem Interventions Goal: Promote nutritional intake Outcome: Progressing Normal [facility] 30 Problem: Knowledge Deficit Goal: Patient/family/caregi krysta demonstrates understanding of disease process, treatment plan, medications, and discharge instructions 08/08/2024624 by Sophy Olmos RN Outcome: Progressing 08/08/2024 05 by Sophy Olmos RN Outcome: Progressing Problem: Potential for Compromised Skin Integrity Goal: Skin Integrity is Maintained or Improved 08/08/2024624 by Sophy Olmos RN Outcome: Progressing 08/08/2024 0553 by Sophy Olmos RN Outcome: Progressing Goal: Nutritional status is improving 08/08/2024624 by Sophy Olmos RN Outcome: Progressing 08/08/2024 0553 by Sophy Olmos RN Outcome: Progressing Problem: Urinary Incontinence Goal: Perineal skin integrity is maintained or improved 08/08/2024624 by Sophy Olmos RN Outcome: Progressing 08/08/2024 0553 by Sophy Olmos RN Outcome: Progressing Problem: Problem Interventions Goal: Promote nutritional intake 08/08/2024624 by Sophy Olmos RN Outcome: Progressing 08/08/2024 0553 by Sophy Olmos RN Outcome: Progressing Normal [facility] 30 Problem: Knowledge Deficit Goal: Patient/family/caregi krysta demonstrates understanding of disease process, treatment plan, medications, and discharge instructions Outcome: Progressing Problem: Potential for Compromised Skin Integrity Goal: Skin Integrity is Maintained or Improved Outcome: Progressing Goal: Nutritional status is improving Outcome: Progressing Problem: Urinary Incontinence Goal: Perineal skin integrity is maintained or improved Outcome: Progressing Problem: Problem Interventions Goal: Promote nutritional intake Outcome: Progressing Normal [facility] CBC W Auto Differential pane l (Bld)on 08-08-2024 Basophils (Bld) [#/Vol] 0 10*3/uL 0.0 - 0.2 10*3/uL [facility] Basophils/100 WBC (Bld) 0.3 % 0.0 - 2.0 % [facility] Eosinophils (Bld) [#/Vol] 0 10*3/uL 0.0 - 0.5 10*3/uL [facility] Eosinophils/100 WBC (Bld) 0 % 0.0 - 6.0 % [facility] Erythrocyte distribution width (RBC) [Ratio] 13.7 % 11.5 - 15.0 % [facility] Hematocrit (Bld) [Volume fraction] 41.9 % 35.0 - 47.0 % [facility] Hemoglobin (Bld) [Mass/Vol] 13.6 g/dL 11.7 - 16.0 g/dL [facility] Immature granulocytes (Bld) [#/Vol] 0.2 10*3/uL High NINF - 0.1 10*3/uL [facility] Immature granulocytes/100 WBC (Bld) 2.1 % High 0.0 - 2.0 % [facility] Interpretation and review of laboratory results Abnormal [facility] IPF 1 [facility] Lymphocytes (Bld) [#/Vol] 0.8 10*3/uL Low 1.0 - 4.3 10*3/uL [facility] Lymphocytes/100 WBC (Bld) 11.5 % Low 15.0 - 45.0 % [facility] MCH (RBC) [Entitic mass] 28.8 pg 26. 0 - 34.0 pg [facility] MCHC (RBC) [Mass/Vol] 32.5 % 30.5 - 36.0 % [facility] MCV (RBC) [Entitic vol] 88.6 fL 77.0 - 99.0 fL [facility] Monocytes (Bld) [#/Vol] 0.6 10*3/uL 0.0 - 0.9 10*3/uL [facility] Monocytes/100 WBC (Bld) 8 % 5.0 - 13.0 % [facility] Neutrophils (Bld) [#/Vol] 5.7 10*3/uL 1.8 - 7.5 10*3/uL [facility] Neutrophils/100 WBC (Bld) 78.1 % 38.0 - 82.0 % [facility] Nucleated RBC/100 WBC (Bld) [Ratio] 0 % [facility] Platelet mean volume (Bld) [Entitic vol] 9.6 fL 9.0 - 12.7 fL [facility] Platelets (Bld) [#/Vol] 124 10*3/uL Low 140 - 440 10*3/uL [facility] RBC (Bld) [#/Vol] 4.73 10*6/uL 3.80 - 5.2 0 10*6/uL [facility] WBC (Bld) [#/Vol] 7.3 10*3/uL 3.6 - 10.7 10*3/uL [facility] CBC WITH AUTO DIFFERENTIALon 08-08-2024 Basophils (Bld) [#/Vol] 0.0 10*3/uL Normal 0.0-0.2 [facility] Comment on above: Performed By: #### L [id number] ####Supervisor [employer]: JOHAN BHANDARI ([id number])[facility] ([facility])[address] [place] [address] Basophils/100 WBC (Bld) 0.3 % Normal 0.0-2.0 S [facility] Comment on above: Performed By: #### L [id number] ####Supervisor [employer]: JOHAN BHANDARI ([id number])[facility] ([facility])[address] [place] [address] Eosinophils (Bld) [#/Vol] 0.0 10*3/uL Normal 0.0-0.5 [facility] Comment on above: Performed By: #### L [id number] ####Supervisor [employer]: JOHAN BHANDARI ([id number])[facility] (SBAB)[address] Eosinophils/100 WBC (Bld) 0.0 % Normal 0.0-6.0 [facility] Comment on above: Performed By: #### L [id number] ####Supervisor [employer]: JOHAN BHANDARI ([id number])[facility] (SBAB)[address] [place] [address] Erythrocyte distribution width (RBC) [Ratio] 13.7 % Normal 11.5-15.0 [facility] Comment on above: Performed By: #### L [id number] ####Supervisor [employer]: JOHAN BHANDARI ([id number])[facility] (HLAB)[address] Hematocrit (Bld) [Volume fraction] 41.9 % Normal 35.0-47.0 [facility] Comment on above: Performed By: #### L [id number] ####Supervisor [employer]: JOHAN BHANDARI ([id number])[facility]ITALA [facility] Hemoglobin (Bld) [Mass/Vol] 13.6 g/dL Normal 11.7-16.0 [facility] Comment on above: Performed By: #### L [id number] ####Supervisor [employer]: JOHAN BHANDARI ([id number])[facility]ITALA [facility] ([facility])[address] IMMATURE GRANS % 2.1 % High 0.0-2.0 [facility] Comment on above: Performed By: #### L [id number] ####Supervisor [employer]: JOHAN BHANDARI ([id number])[facility])[address] IMMATURE GRANS ABSOLUTE 0.2 10*3/uL High <0.1 [facility] Comment on above: Performed By: #### L [id number] ####Supervisor [employer]: JOHAN BHANDARI ([id number])[facility] [place] [facility])[address] [place] [address] [place] IPF 1 Normal [facility] Comment on above: Performed By: #### L [id number] ####Supervisor [employer]: JOHAN BHANDARI ([id number])[facility])[address] Lymphocytes (Bld) [#/Vol] 0.8 10*3/uL Low 1.0-4.3 [facility] Comment on above: Performed By: #### L [id number] ####Supervisor [employer]: JOHAN BHANDARI ([id number])[facility]OSPITALSujata ZAMBRANOIsabela (SBHLAB)[address] Lymphocytes/100 WBC (Bld) 11.5 % Low 15.0-45.0 [facility] Comment on above: Performed By: #### L [id number] ####Supervisor [employer]: JOHAN BHANDARI ([id number])[facility]OSPITALSujata GUTIERREZGILA REGIONAL MEDICAL CENTERN (SBHLAB)[address] MCH (RBC) [Entitic mass] 28.8 pg Normal 26.0-34.0 [facility] Comment on above: Performed By: #### L [id number] ####Supervisor [employer]: JOHAN ALEGRIAAllanCANDY ([id number])[facility]OSPITALSujata GUTIERREZGILA REGIONAL MEDICAL CENTERIsabela (SBHLAB)[address] MCHC 32.5 % Normal 30.5-36.0 [facility] Comment on above: Performed By: #### L [id number] ####Supervisor [employer]: JOHAN BHANDARI ([id number])[facility]OSPITALSujata GUTIERREZGILA REGIONAL MEDICAL CENTERIsabela (SBHLAB)[address] MCV (RBC) [Entitic vol] 88.6 fL Normal 77.0-99.0 S [facility] Comment on above: Performed By: #### L [id number] ####Supervisor [employer]: JOHAN BHANDARI ([id number])[facility]OSPITALSujata GUTIERREZGILA REGIONAL MEDICAL CENTERIsabela (SBHLAB)[address] Monocytes (Bld) [#/Vol] 0.6 10*3/uL Normal 0.0-0.9 [facility] Comment on above: Performed By: #### L [id number] ####Supervisor [employer]: JOHAN BHANDARI ([id number])[facility]OSPITALSujata [facility]IERREZGILA [facility]ENTERN (SBHLAB)[address] Monocytes/100 WBC (Bld) 8.0 % Normal 5.0-13.0 [facility] Comment on above: Performed By: #### L [id number] ####Supervisor [employer]: JOHAN BHANDARI ([id number])[facility] [place] (SBHL[facility])[address] NEUTROPHILS ABSOLUTE 5.7 10*3/uL Normal 1.8-7.5 [facility] Comment on above: Performed By: #### L [id number] ####Supervisor [employer]: JOHAN BHANDARI ([id number])[facility] [place] (SBHL[facility])[address] Neutrophils/100 WBC (Bld) 78.1 % Normal 38.0-82.0 [facility] Comment on above: Performed By: #### L [id number] ####Supervisor [employer]: JOHAN BHANDARI ([id number])[facility]A [place] (SBHL[facility])[address] NRBC 0.0 /100 WBCs Normal 0.0-2.0 [facility] Comment on above: Performed By: #### L [id number] ####Supervisor [employer]: JOHAN BHANDARI ([id number])[facility] [place] (SB[facility])[address] Platelet mean volume (Bld) [Entitic vol] 9.6 fL Normal 9.0-12.7 [facility] Comment on above: Performed By: #### L [id number] ####Supervisor [employer]: JOHAN BHANDARI ([id number])[facility] [place] ([facility])[address] [place] [address] [place] Platelets (Bld) [#/Vol] 124 10*3/uL Low 140-440 [facility] Comment on above: Performed By: #### L [id number] ####Supervisor [employer]: JOHAN BHANDARI ([id number])[facility] [place] ([facility])[address] [place] [address] [place] RBC (Bld) [#/Vol] 4.73 10*6/uL Normal 3.80-5.20 [facility] Comment on above: Performed By: #### L [id number] ####Supervisor [employer]: JOHAN BHANDARI ([id number])[facility]A [place] (SB[facility])[address] WBC (Bld) [#/Vol] 7.3 10*3/uL Normal 3.6-10.7 [facility] Comment on above: Performed By: #### L [id number] ####Supervisor [employer]: JOHAN BHANDARI ([id number])[facility] ([facility])[address] COMPREHENSIVE METABOLIC PANE Alex 08-08-2024 Albumin [Mass/Vol] 2.9 g/dL Low 3.4-4.8 [facility] Comment on above: Performed By: #### L [id number] ####Supervisor [employer]: JOHAN BHANDARI ([id number])[facility]OSPITALSujata GUTIERREZGILA REG[facility]ENTERN ([facility])[address] ALP [Catalytic activity/Vol] 78 U/L Normal 40-150 [facility] Comment on above: Performed By: #### L [id number] ####Supervisor [employer]: JOHAN BHANDARI ([id number])[facility] HOSPITALSujata [facility] ([facility])[address] ALT [Catalytic activity/Vol] 9 U/L Normal <30 [facility] Comment on above: Performed By: #### L [id number] ####Supervisor [employer]: JOHAN BHANDARI ([id number])[facility]ITALA [facility]A [facility] ([facility] Anion gap [Moles/Vol] 10 mmol/L Normal 3-13 [facility] Comment on above: Performed By: #### L [id number] ####Supervisor [employer]: JOHAN BHANDARI ([id number])[facility] [place] [facility] ([facility])[address] AST [Catalytic activity/Vol] 16 U/L Normal <34 [facility] Comment on above: Performed By: #### L [id number] ####Supervisor [employer]: JOHAN BHANDARI ([id number])RASHAD [place] (SBHLAB)[address] Bilirubin [Mass/Vol] 0.3 mg/dL Normal <1.2 [facility] Comment on above: Performed By: #### L [id number] ####Supervisor [employer]: JOHAN BHANDARI ([id number])[facility] [place] (SBHLAB)[address] Calcium [Mass/Vol] 9.8 mg/dL Normal 8.8-10.0 [facility] Comment on above: Performed By: #### L [id number] ####Supervisor [employer]: JOHAN BHANDARI ([id number])[facility] [place] (SBHLAB)[address] Chloride [Moles/Vol] 100 mmol/L Normal 98-107 [facility] Comment on above: Performed By: #### L [id number] ####Supervisor [employer]: JOHAN BHANDARI ([id number])[facility] [place] (SBHLAB)[address] CO2 [Moles/Vol] 29 mmol/L Normal 23-31 [facility] Comment on above: Performed By: #### L [id number] ####Supervisor [employer]: JOHAN BHANDARI ([id number])[facility]PITALSujata [place] (SBHLAB)[address] Creatinine [Mass/Vol] 0.80 mg/dL Normal 0.57-1.11 [facility] Comment on above: Performed By: #### L [id number] ####Supervisor [employer]: JOHAN BHANDARI ([id number])[facility] [place] (SBHLAB)155 [place] [address] [place] GLOMERULAR FILTRATION RATE ML/MIN/1.73 SQ M.PREDICTED 72.3 mL/min/1.73m*2 Normal >60.0 [facility] Comment on above: Result Comment: Calc ulation based on the Chronic Kidney Disease Epidemiology Collaboration (CKD-EPI) equation refit without adjustment for race Performed By: #### L [id number] ####Supervisor [employer]: JOHAN BHANDARI ([id number])[facility]PITALSujata GUTIERREZGILA [facility]ION[facility] MED[facility] CENTERIsabela (SBHLAB)[address] Glucose [Mass/Vol] 118 mg/dL High 82-115 [facility] Comment on above: Performed By: #### L [id number] ####Supervisor [employer]: JOHAN BHANDARI ([id number])[facility]ITALSujata GUTIERREZGILA REGIONAL MED[facility] CENTERIsabela (SBHLAB)[address] Potassium [Moles/Vol] 4.7 mmol/L Normal 3.5-5.1 [facility] Comment on above: Result Comment: [facility] potassium values may be up to 0.5 mmol/L lower than serum values. Performed By: #### L [id number] ####Supervisor [employer]: JOHAN BHANDARI ([id number])[facility] (SBHLAB)[address] Protein [Mass/Vol] 7.5 g/dL Normal 6.4-8.3 [facility] Comment on above: Performed By: #### L [id number] ####Supervisor [employer]: JOHAN BHANDARI ([id number])[facility] (HLAB)[address] Sodium [Moles/Vol] 139 mmol/L Normal 136-145 [facility] Comment on above: Performed By: #### L [id number] ####Supervisor [employer]: JOHAN BHANDARI ([id number])[facility] (SBHLAB)[address] Urea nitrogen [Mass/Vol] 21 mg/dL Normal 9-23 [facility] Comment on above: Performed By: #### L [id number] ####Supervisor [employer]: JOHAN BHANDARI ([id number])[facility] (HLAB)[address] Comprehensive metabolic 1998 panelon 08-08-2024 Albumin [Mass/Vol] 2.9 g/dL Low 3.4 - 4.8 g/dL [facility] ALP [Catalytic activity/Vol] 78 U/L 40 - 150 U/L [facility] ALT [Catalytic activity/Vol] 9 U/L NINF - 30 U/L [facility] Anion gap [Moles/Vol] 10 mmol/L 3 - 13 mmol/L [facility] AST [Catalytic activity/Vol] 16 U/L NINF - 34 U/L [facility] Bilirubin [Mass/Vol] 0.3 mg/dL NINF - 1.2 mg/dL [facility] Calcium [Mass/Vol] 9.8 mg/dL 8.8 - 10. 0 mg/dL [facility] Chloride [Moles/Vol] 100 mmol/L 98 - 10 7 mmol/L [facility] CO2 [Moles/Vol] 29 mmol/L 23 - 31 mmol/L [facility] Creatinine [Mass/Vol] 0.8 mg/dL 0.57 - 1.11 mg/dL [facility] GFR/1.73 sq M.predicted (S/P/Bld) [Vol rate/Area] 72.3 mL/min - PINF [facility] Comment on above: Calculation based on the Chronic Kidney Disease Epidemiology Collaboration (CKD-EPI) equation refit without adjustment for race Glucose [Mass/Vol] 118 mg/dL High 82 - 115 mg/dL [facility] Interpretation and review of laboratory results Abnormal [facility] Potassium [Moles/Vol] 4.7 mmol/L 3.5 - 5.1 mmol/L [facility] Comment on above: Plasma potassium gustavo ues may be up to 0.5 mmol/L lower than serum values. Protein [Mass/Vol] 7.5 g/dL 6.4 - 8.3 g/dL [facility] Sodium [Moles/Vol] 139 mmol/L 136 - 145 mmol/L [facility] Urea nitrogen [Mass/Vol] 21 mg/dL 9 - 23 mg/dL [facility] 3008-07-2024 Problem: Knowledge Deficit Goal: Patient/family/caregi krysta demonstrates understanding of disease process, treatment plan, medications, and discharge instructions Outcome: Progressing Problem: Potential for Compromised Skin Integrity Goal: Skin Integrity is Maintained or Improved Outcome: Progressing Problem: Urinary Incontinence Goal: Perineal skin integrity is maintained or improved Outcome: Progressing Problem: Problem Interventions Goal: Promote nutritional intake Outcome: Progressing Normal [facility] 30 Problem: Knowledge Deficit Goal: Patient/family/caregi krysta demonstrates understanding of disease process, treatment plan, medications, and discharge instructions Outcome: Progressing Problem: Potential for Compromised Skin Integrity Goal: Skin Integrity is Maintained or Improved Outcome: Progressing Goal: Nutritional status is improving Outcome: Progressing Problem: Urinary Incontinence Goal: Perineal skin integrity is maintained or improved Outcome: Progressing Problem: Problem Interventions Goal: Promote nutritional intake Outcome: Progressing Normal [facility] CBC W Auto Differential pane l (Bld)on 08-07-2024 Basophils (Bld) [#/Vol] 0 10*3/uL 0.0 - 0.2 10*3/uL [facility] Basophils/100 WBC (Bld) 0.1 % 0.0 - 2.0 % [facility] Eosinophils (Bld) [#/Vol] 0 10*3/uL 0.0 - 0.5 10*3/uL [facility] Eosinophils/100 WBC (Bld) 0.2 % 0.0 - 6.0 % [facility] Erythrocyte distribution width (RBC) [Ratio] 13.5 % 11.5 - 15.0 % [facility] Hematocrit (Bld) [Volume fraction] 42.1 % 35.0 - 47.0 % [facility] Hemoglobin (Bld) [Mass/Vol] 14.1 g/dL 11.7 - 16.0 g/dL [facility] Immature granulocytes (Bld) [#/Vol] 0.2 10*3/uL High NINF - 0.1 10*3/uL [facility] Immature granulocytes/100 WBC (Bld) 1.5 % 0.0 - 2.0 % [facility] Interpretation and review of laboratory results Abnormal [facility] IPF 1 [facility] Lymphocytes (Bld) [#/Vol] 1.5 10*3/uL 1.0 - 4.3 10*3/uL [facility] Lymphocytes/100 WBC (Bld) 12.3 % Low 15.0 - 45.0 % [facility] MCH (RBC) [Entitic mass] 29 pg 26. 0 - 34.0 pg [facility] MCHC (RBC) [Mass/Vol] 33.5 % 30.5 - 36.0 % [facility] MCV (RBC) [Entitic vol] 86.6 fL 77.0 - 99.0 fL [facility] Monocytes (Bld) [#/Vol] 1.3 10*3/uL High 0.0 - 0.9 10*3/uL [facility] Monocytes/100 WBC (Bld) 10.8 % 5.0 - 13.0 % [facility] Neutrophils (Bld) [#/Vol] 9.1 10*3/uL High 1.8 - 7.5 10*3/uL [facility] Neutrophils/100 WBC (Bld) 75.1 % 38.0 - 82.0 % [facility] Nucleated RBC/100 WBC (Bld) [Ratio] 0 % [facility] Platelet mean volume (Bld) [Entitic vol] 9.6 fL 9.0 - 12.7 fL [facility] Platelets (Bld) [#/Vol] 153 10*3/uL 140 - 440 10*3/uL [facility] RBC (Bld) [#/Vol] 4.86 10*6/uL 3.80 - 5.2 0 10*6/uL [facility] WBC (Bld) [#/Vol] 12.1 10*3/uL High 3.6 - 10.7 10*3/uL [facility] CBC WITH AUTO DIFFERENTIALon 08-07-2024 Basophils (Bld) [#/Vol] 0.0 10*3/uL Normal 0.0-0.2 [facility] Comment on above: Performed By: #### L [id number] ####Supervisor [employer]: JOHAN BHANDARI ([id number])[facility]ITAL[facility] ([facility])[address] [place] [address] Basophils/100 WBC (Bld) 0.1 % Normal 0.0-2.0 S [facility] Comment on above: Performed By: #### L [id number] ####Supervisor [employer]: JOHAN BHANDARI ([id number])[facility]ITALIs[facility] ([facility])[address] Eosinophils (Bld) [#/Vol] 0.0 10*3/uL Normal 0.0-0.5 [facility] Comment on above: Performed By: #### L [id number] ####Supervisor [employer]: JOHAN BHANDARI ([id number])[facility] (SBHLAB)[address] Eosinophils/100 WBC (Bld) 0.2 % Normal 0.0-6.0 [facility] Comment on above: Performed By: #### L [id number] ####Supervisor [employer]: JOHAN BHANDARI ([id number])[facility]ITALA [facility] (SBHLAB)[address] Erythrocyte distribution width (RBC) [Ratio] 13.5 % Normal 11.5-15.0 [facility] Comment on above: Performed By: #### L [id number] ####Supervisor [employer]: JOHAN BHANDARI ([id number])[facility] ([facility])[address] [place] [address] Hematocrit (Bld) [Volume fraction] 42.1 % Normal 35.0-47.0 [facility] Comment on above: Performed By: #### L [id number] ####Supervisor [employer]: JOHAN BHANDARI ([id number])[facility] (SBHLAB)[address] [place] [address] Hemoglobin (Bld) [Mass/Vol] 14.1 g/dL Normal 11.7-16.0 [facility] Comment on above: Performed By: #### L [id number] ####Supervisor [employer]: JOHAN BHANDARI ([id number])[facility] (SBHLAB)[address] [place] [address] IMMATURE GRANS % 1.5 % Normal 0.0-2.0 [facility] Comment on above: Performed By: #### L [id number] ####Supervisor [employer]: JOHAN BHANDARI ([id number])[facility] (SBHLAB)[address] IMMATURE GRANS ABSOLUTE 0.2 10*3/uL High <0.1 [facility] Comment on above: Performed By: #### L [id number] ####Supervisor [employer]: JOHAN BHANDARI ([id number])[facility] (SBHLAB)[address] IPF 1 Normal [facility] Comment on above: Performed By: #### L [id number] ####Supervisor [employer]: JOHAN BHANDARI ([id number])[facility]OSPITALSujata [place] (SBHLAB)[address] Lymphocytes (Bld) [#/Vol] 1.5 10*3/uL Normal 1.0-4.3 [facility] Comment on above: Performed By: #### L [id number] ####Supervisor [employer]: JOHAN BHANDARI ([id number])[facility]ITALSujata [place] (SBHLAB)[address] Lymphocytes/100 WBC (Bld) 12.3 % Low 15.0-45.0 [facility] Comment on above: Performed By: #### L [id number] ####Supervisor [employer]: JOHAN BHANDARI ([id number])[facility]ITALSujata [place] (SBHLAB)[address] MCH (RBC) [Entitic mass] 29.0 pg Normal 26.0-34.0 [facility] Comment on above: Performed By: #### L [id number] ####Supervisor [employer]: JOHAN BHANDARI ([id number])[facility]ITALSujata [place] (SBHLAB)[address] MCHC 33.5 % Normal 30.5-36.0 [facility] Comment on above: Performed By: #### L [id number] ####Supervisor [employer]: JOHAN BHANDARI ([id number])[facility]OSPITALSujata [place]RE[place] (SBHLAB)[address] MCV (RBC) [Entitic vol] 86.6 fL Normal 77.0-99.0 S [facility] Comment on above: Performed By: #### L [id number] ####Supervisor [employer]: JOHAN BHANDARI ([id number])[facility]OSPITALSujata GUTIERREZGILA [facility] (SBHLAB)155 [place] [address] [place] Monocytes (Bld) [#/Vol] 1.3 10*3/uL High 0.0-0.9 [facility] Comment on above: Performed By: #### L [id number] ####Supervisor [employer]: JOHAN BHANDARI ([id number])[facility] [place] (SBHLAB)[address] Monocytes/100 WBC (Bld) 10.8 % Normal 5.0-13.0 [facility] Comment on above: Performed By: #### L [id number] ####Supervisor [employer]: JOHAN BHANDARI ([id number])[facility] [place] (SBHLAB)[address] NEUTROPHILS ABSOLUTE 9.1 10*3/uL High 1.8-7.5 [facility] Comment on above: Performed By: #### L [id number] ####Supervisor [employer]: JOHAN WATTSCANDY ([id number])[facility] [place] (SBHLAB)[address] Neutrophils/100 WBC (Bld) 75.1 % Normal 38.0-82.0 [facility] Comment on above: Performed By: #### L [id number] ####Supervisor [employer]: JOAHN BHANDARI ([id number])[facility] [place] (SBHLAB)[address] NRBC 0.0 /100 WBCs Normal 0.0-2.0 [facility] Comment on above: Performed By: #### L [id number] ####Supervisor [employer]: JOHAN BHANDARI ([id number])[facility] [place] (SBHLAB)155 [place] [address] [place] Platelet mean volume (Bld) [Entitic vol] 9.6 fL Normal 9.0-12.7 [facility] Comment on above: Performed By: #### L [id number] ####Supervisor [employer]: JOHAN BHANDARI ([id number])[facility] [place] (SBHLAB)155 [place] [address] [place] Platelets (Bld) [#/Vol] 153 10*3/uL Normal 140-440 [facility] Comment on above: Performed By: #### L [id number] ####Supervisor [employer]: JOHAN BHANDARI ([id number])[facility] [place] (SBHLAB)[address] RBC (Bld) [#/Vol] 4.86 10*6/uL Normal 3.80-5.20 [facility] Comment on above: Performed By: #### L [id number] ####Supervisor [employer]: JOHAN BHANDARI ([id number])[facility] [place] (SBHLAB)[address] WBC (Bld) [#/Vol] 12.1 10*3/uL High 3.6-10.7 [facility] Comment on above: Performed By: #### L [id number] ####Supervisor [employer]: JOHAN BHANDARI ([id number])[facility] [place] (SBHLAB)[address] COMPREHENSIVE METABOLIC PANE Alex 08-07-2024 Albumin [Mass/Vol] 2.8 g/dL Low 3.4-4.8 [facility] Comment on above: Performed By: #### L [id number] ####Supervisor [employer]: JOHAN BHANDARI ([id number])[facility]OSPITALSujata [place] (SBHLAB)[address] ALP [Catalytic activity/Vol] 78 U/L Normal 40-150 [facility] Comment on above: Performed By: #### L [id number] ####Supervisor [employer]: JOHAN BHANDARI ([id number])[facility] [place] (SBHLAB)[address] ALT [Catalytic activity/Vol] 10 U/L Normal <30 [facility] Comment on above: Performed By: #### L [id number] ####Supervisor [employer]: JOHAN BHANDARI ([id number])[facility] [place] (SBHLAB)[address] Anion gap [Moles/Vol] 11 mmol/L Normal 3-13 [facility] Comment on above: Performed By: #### L [id number] ####Supervisor [employer]: JOHAN BHANDARI ([id number])[facility] (SBHLAB)[address] AST [Catalytic activity/Vol] 22 U/L Normal <34 [facility] Comment on above: Performed By: #### L [id number] ####Supervisor [employer]: JOHAN BHANDARI ([id number])[facility] BARBGILA [facility] (SBHLAB)[address] Bilirubin [Mass/Vol] 0.4 mg/dL Normal <1.2 [facility] Comment on above: Performed By: #### L [id number] ####Supervisor [employer]: JOHAN BHANDARI ([id number])[facility] ([facility])[address] Calcium [Mass/Vol] 9.8 mg/dL Normal 8.8-10.0 [facility] Comment on above: Performed By: #### L [id number] ####Supervisor [employer]: JOHAN BHANDARI ([id number])[facility] [place] [facility] (SBHLAB)[address] Chloride [Moles/Vol] 101 mmol/L Normal 98-107 [facility] Comment on above: Performed By: #### L [id number] ####Supervisor [employer]: JOHAN BHANDARI ([id number])[facility] ([facility])[address] CO2 [Moles/Vol] 26 mmol/L Normal 23-31 [facility] Comment on above: Performed By: #### L [id number] ####Supervisor [employer]: JOHAN BHANDARI ([id number])[facility] (SBHLAB)[address] Creatinine [Mass/Vol] 0.79 mg/dL Normal 0.57-1.11 [facility] Comment on above: Performed By: #### L [id number] ####Supervisor [employer]: JOHAN BHANDARI ([id number])[facility]OSPITALSujata [facility]REZ[facility] (SBHLAB)[address] [place] [address] [place] GLOMERULAR FILTRATION RATE ML/MIN/1.73 SQ M.PREDICTED 73.4 mL/min/1.73m*2 Normal >60.0 [facility] Comment on above: Result Comment: Calc ulation based on the Chronic Kidney Disease Epidemiology Collaboration (CKD-EPI) equation refit without adjustment for race Performed By: #### L [id number] ####Supervisor [employer]: JOHAN BHANDARI ([id number])[facility] (SBHLAB)[address] Glucose [Mass/Vol] 74 mg/dL Low 82-115 [facility] Comment on above: Performed By: #### L [id number] ####Supervisor [employer]: JOHAN BHANDARI ([id number])[facility] (SBHLAB)[address] Potassium [Moles/Vol] 4.4 mmol/L Normal 3.5-5.1 [facility] Comment on above: Result Comment: [facility] potassium values may be up to 0.5 mmol/L lower than serum values. Performed By: #### L [id number] ####Supervisor [employer]: JOHAN BHANDARI ([id number])[facility] (SBHLAB)[address] Protein [Mass/Vol] 7.2 g/dL Normal 6.4-8.3 [facility] Comment on above: Performed By: #### L [id number] ####Supervisor [employer]: JOHAN BHNADARI ([id number])[facility] (SBHLAB)[address] [place] [address] [place] Sodium [Moles/Vol] 138 mmol/L Normal 136-145 [facility] Comment on above: Performed By: #### L [id number] ####Supervisor [employer]: JOHAN BHANDARI ([id number])[facility] (SBHLAB)[address] [place] [address] [place] Urea nitrogen [Mass/Vol] 28 mg/dL High 9-23 [facility] Comment on above: Performed By: #### L [id number] ####Supervisor [employer]: JOHAN BHANDARI ([id number])[facility] BRENDAJUAN JOSE (SBHLAB)[address] [place] [address] Comprehensive metabolic 1998 panelon 08-07-2024 Albumin [Mass/Vol] 2.8 g/dL Low 3.4 - 4.8 g/dL [facility] ALP [Catalytic activity/Vol] 78 U/L 40 - 150 U/L [facility] ALT [Catalytic activity/Vol] 10 U/L NINF - 30 U/L [facility] Anion gap [Moles/Vol] 11 mmol/L 3 - 13 mmol/L [facility] AST [Catalytic activity/Vol] 22 U/L [facility] - 34 U/L [facility] Bilirubin [Mass/Vol] 0.4 mg/dL NINF - 1.2 mg/dL [facility] Calcium [Mass/Vol] 9.8 mg/dL 8.8 - 10. 0 mg/dL [facility] Chloride [Moles/Vol] 101 mmol/L 98 - 10 7 mmol/L [facility] CO2 [Moles/Vol] 26 mmol/L 23 - 31 mmol/L [facility] Creatinine [Mass/Vol] 0.79 mg/dL 0.57 - 1.11 mg/dL [facility] GFR/1.73 sq M.predicted (S/P/Bld) [Vol rate/Area] 73.4 mL/min - PINF [facility] Comment on above: Calculation based on the Chronic Kidney Disease Epidemiology Collaboration (CKD-EPI) equation refit without adjustment for race Glucose [Mass/Vol] 74 mg/dL Low 82 - 115 mg/dL [facility] Interpretation and review of laboratory results Abnormal [facility] Potassium [Moles/Vol] 4.4 mmol/L 3.5 - 5.1 mmol/L [facility] Comment on above: Plasma potassium gustavo ues may be up to 0.5 mmol/L lower than serum values. Protein [Mass/Vol] 7.2 g/dL 6.4 - 8.3 g/dL [facility] Sodium [Moles/Vol] 138 mmol/L 136 - 145 mmol/L [facility] Urea nitrogen [Mass/Vol] 28 mg/dL High 9 - 23 mg/dL [facility] Progress Noteon 08-07-2024 Progress Note PHYSICAL THERAPY [facility] Treatment Note Name/MRN: Emily Peralta ([id number]) Date of : 1940 Age: 83 y.o. Room/Bed: B2-255/B2-255 A Visit #: 2 out of 5 Discharge Recommendation: [facility] Facility Equipment Needed: No Assessment Pt seated in recliner at initiation of physical therapy session. Pt was agreeable to seated exercises however reports she did not sleep well last night and is tired. Pt completed all exercises AROM. Pt reports she is limited by frequent coughing fits and feeling SOB when coughing. Increased recovery time between exercise sets. Pt will benefit from continued skilled PT to address current functional deficits. Recommend SNF. Subjective Patient agreeable to seated exercises. Pain: Pt denies any current pain. Medical Precautions: Droplet Proper PPE donned/doffed in accordance with facility standards. Fall Risk: Sotomayor Fall Risk Score: 85 (Low Risk) Sotom[place]or Fall Risk Score: 85 (High Risk) Precautions/Restricti ons: Lines/Drains/Airways: 12L HFNC Fall Precautions Overall Cognitive Status: Exceptions - Attention span: attends with cues to redirect - Problem solving: assistance required to generate solutions and assistance required to implement solutions Family/Caregiver Present: none Objective Exercises Exercises Hip Flexion: 1 set / 15 reps B LE in sitting Hip Adduction: 1 set / 15 reps B LE in sitting Knee Long Arc Quad: 1 set / 15 reps B LE in sitting Ankle Pumps: 1 set / 15 reps B LE in sitting Comments: Exercises performed to improve overall muscle strength and activity tolerance. Verbal/visual cues for proper ROM and slow pace. Min encouragement to participate in exercises. Plan Continue acute PT per plan of care. Safety/Education Safety Safety Devices in place: All fall risk precautions in place, call light within reach, left in chair, patient at risk for falls, and no alarms engaged upon entry Restraints: No Education Education Given To: patient Education Provided: PT Role, PT Goals, Plan of Care, Home Exercise Program, and Benefits of Increasing Activity Education Method: Verbal and Demonstration Barriers to Learning: None Education Outcome: Verbalized Understanding, Demonstrated Understanding, and Continued Education Needed Outcome Measures AM-PAC AM-PAC Inpatient Mobility Raw Score (No Stairs) : 15 [facility] Score: Transferred to chair/commode Goals Patient Stated Goal: No goal stated Encounter Problems Encounter Problems (Active) Balance Patient will maintain dynamic standing balance for 3-5 minutes with SBA in order to demonstrate decreased risk of falling. (Not Addressed) Start: 08/04/24 Expected End: 08/11/24 Exercise Patient will complete lower extremity exercises for 1-2 sets / 5-10 reps in order to improve strength and activity tolerance for mobility. (Progressing) Start: 08/04/24 Expected End: 08/11/24 Mobility Patient will ambulate 15 feet with SBA and rolling walker in order to improve safety and independence with mobility. (Not Addressed) Start: 08/04/24 Expected End: 08/11/24 Transfers Patient will perform bed mobility with modified independence in order to improve independence and prepare for out of bed mobility. (Not Addressed) Start: 08/04/24 Expected End: 08/11/24 Patient will complete functional transfer with rolling walker with CGA in order to prepare for ambulation. (Not Addressed) Start: 08/04/24 Expected End: 08/11/24 Therapy Time Individual Co-treatment Time In 0957 Time Out 1010 Minutes 13 Timed Code Treatment Minutes: 13 Minutes (x1 ther ex) Clary Wilson, EVERARDO Normal [facility] Bacteria identified Aer cx N om (Lower resp)Ordered By: Marianna Chapman on 08-06-[address] [facility] th Gram Stain Result Few Epithelial cells per low power field Abnormal [facility] Gram Stain Result Moderate Polymorphonuclear leukocytes per low power field Abnormal [facility] Gram Stain Result Positive [facility] Gram Stain Result Negative Abnormal [facility] Interpretation and review of laboratory results Abnormal [facility] CBC W Auto Differential pane l (Bld)on 08-06-2024 Basophils (Bld) [#/Vol] 0 10*3/uL 0.0 - 0.2 10*3/uL [facility] Basophils/100 WBC (Bld) 0.1 % 0.0 - 2.0 % [facility] Eosinophils (Bld) [#/Vol] 0 10*3/uL 0.0 - 0.5 10*3/uL [facility] Eosinophils/100 WBC (Bld) 0 % 0.0 - 6.0 % [facility] Erythrocyte distribution width (RBC) [Ratio] 13.2 % 11.5 - 15.0 % [facility] Hematocrit (Bld) [Volume fraction] 39.6 % 35.0 - 47.0 % [facility] Hemoglobin (Bld) [Mass/Vol] 13 g/dL 11.7 - 16.0 g/dL [facility] Immature granulocytes (Bld) [#/Vol] 0.2 10*3/uL High NINF - 0.1 10*3/uL [facility] Immature granulocytes/100 WBC (Bld) 1.2 % 0.0 - 2.0 % [facility] Interpretation and review of laboratory results Abnormal [facility] Lymphocytes (Bld) [#/Vol] 1.1 10*3/uL 1.0 - 4.3 10*3/uL [facility] Lymphocytes/100 WBC (Bld) 8 % Low 15.0 - 45.0 % [facility] MCH (RBC) [Entitic mass] 29 pg 26. 0 - 34.0 pg [facility] MCHC (RBC) [Mass/Vol] 32.8 % 30.5 - 36.0 % [facility] MCV (RBC) [Entitic vol] 88.2 fL 77.0 - 99.0 fL [facility] Monocytes (Bld) [#/Vol] 0.8 10*3/uL 0.0 - 0.9 10*3/uL [facility] Monocytes/100 WBC (Bld) 5.4 % 5.0 - 13.0 % [facility] Neutrophils (Bld) [#/Vol] 12.1 10*3/uL High 1.8 - 7.5 10*3/uL [facility] Neutrophils/100 WBC (Bld) 85.3 % High 38.0 - 82.0 % [facility] Nucleated RBC/100 WBC (Bld) [Ratio] 0 % [facility] Platelet mean volume (Bld) [Entitic vol] 9 fL 9.0 - 12.7 fL [facility] Platelets (Bld) [#/Vol] 160 10*3/uL 140 - 440 10*3/uL [facility] RBC (Bld) [#/Vol] 4.49 10*6/uL 3.80 - 5.2 0 10*6/uL [facility] WBC (Bld) [#/Vol] 14.1 10*3/uL High 3.6 - 10.7 10*3/uL [facility] CBC WITH AUTO DIFFERENTIALon 08-06-2024 Basophils (Bld) [#/Vol] 0.0 10*3/uL Normal 0.0-0.2 [facility] Comment on above: Performed By: #### L [id number] ####[employer]visor [employer]: JOHAN BHANDARI ([id number])[facility] (SBHLAB)[address] Basophils/100 WBC (Bld) 0.1 % Normal 0.0-2.0 [facility] Comment on above: Performed By: #### L [id number] ####[employer]: JOHAN BHANDARI ([id number])[facility] ([facility])[address] [place] [address] Eosinophils (Bld) [#/Vol] 0.0 10*3/uL Normal 0.0-0.5 [facility] Comment on above: Performed By: #### L [id number] ####[employer]: JOHAN BHANDARI ([id number])[facility] (SBAB)[address] [place] [address] Eosinophils/100 WBC (Bld) 0.0 % Normal 0.0-6.0 [facility] Comment on above: Performed By: #### L [id number] ####[employer]: JOHAN BHANDARI ([id number])[facility] (SBHLAB)[address] [place] [address] Erythrocyte distribution width (RBC) [Ratio] 13.2 % Normal 11.5-15.0 [facility] Comment on above: Performed By: #### L [id number] ####[employer]: JOAHN BHANDARI ([id number])[facility] (SBAB)[address] [place] [address] Hematocrit (Bld) [Volume fraction] 39.6 % Normal 35.0-47.0 [facility] Comment on above: Performed By: #### L [id number] ####[employer]visor [employer]: JOHAN BHANDARI ([id number])[facility] (SBHLAB)[address] Hemoglobin (Bld) [Mass/Vol] 13.0 g/dL Normal 11.7-16.0 [facility] Comment on above: Performed By: #### L [id number] ####[employer]: JOHAN BHANDARI ([id number])[facility] (SBHLAB)[address] IMMATURE GRANS % 1.2 % Normal 0.0-2.0 [facility] Comment on above: Performed By: #### L [id number] ####Supervisor [employer]: JOHAN DILLONCER ([id number])[facility] ([facility] IMMATURE GRANS ABSOLUTE 0.2 10*3/uL High <0.1 [facility] Comment on above: Performed By: #### L [id number] ####[employer]: JOHAN BHANDARI ([id number])[facility] (SBAB)[address] Lymphocytes (Bld) [#/Vol] 1.1 10*3/uL Normal 1.0-4.3 [facility] Comment on above: Performed By: #### L [id number] ####[employer]: JOHAN BHANDARI ([id number])[facility] (SBHLAB)[address] Lymphocytes/100 WBC (Bld) 8.0 % Low 15.0-45.0 [facility] Comment on above: Performed By: #### L [id number] ####[employer]: JOHAN BHANDARI ([id number])[facility] (SBAB)[address] MCH (RBC) [Entitic mass] 29.0 pg Normal 26.0-34.0 [facility] Comment on above: Performed By: #### L [id number] ####[employer]: JOHAN BHANDARI ([id number])RASHAD GUTIERREZALONDRAN (SBHLAB)[address] MCHC 32.8 % Normal 30.5-36.0 [facility] Comment on above: Performed By: #### L [id number] ####[employer]: JOHAN BHANDARI ([id number])[facility]ESS[facility]AA [place] (SBHLAB)[address] MCV (RBC) [Entitic vol] 88.2 fL Normal 77.0-99.0 S [facility] Comment on above: Performed By: #### L [id number] ####[employer]: JOHAN BHANDARI ([id number])[facility] KENY[facility] (SBHLAB)[address] Monocytes (Bld) [#/Vol] 0.8 10*3/uL Normal 0.0-0.9 [facility] Comment on above: Performed By: #### L [id number] ####[employer]: JOHAN BHANDARI ([id number])R[facility]AD [place] (SBHLAB)[address] Monocytes/100 WBC (Bld) 5.4 % Normal 5.0-13.0 [facility] Comment on above: Performed By: #### L [id number] ####[employer]visor [employer]: JOHAN BHANDARI ([id number])RASHAD [place] (SBHLAB)[address] NEUTROPHILS ABSOLUTE 12.1 10*3/uL High 1.8-7.5 [facility] Comment on above: Performed By: #### L [id number] ####[employer]: JOHAN BHANDARI ([id number])[facility] [place] (SBHLAB)[address] Neutrophils/100 WBC (Bld) 85.3 % High 38.0-82.0 [facility] Comment on above: Performed By: #### L [id number] ####[employer]: JOHAN BHANDARI ([id number])RASHAD [place] (SBHLAB)[address] NRBC 0.0 /100 WBCs Normal 0.0-2.0 [facility] Comment on above: Performed By: #### L [id number] ####[employer]visor [employer]: JOHAN ALEGRIAAllanCANDY ([id number])[facility]OSPITALSujata GUTIERREZGILA [facility]ENTERN (SBHLAB)[address] Platelet mean volume (Bld) [Entitic vol] 9.0 fL Normal 9.0-12.7 [facility] Comment on above: Performed By: #### L [id number] ####[employer]visor [employer]: JOHAN ALEGRIAAllanCANDY ([id number])[facility]PITALSujata [facility]UTIERREZGILA [facility]ENT[facility] (SBHLAB)[address] Platelets (Bld) [#/Vol] 160 10*3/uL Normal 140-440 [facility] Comment on above: Performed By: #### L [id number] ####[employer]visor [employer]: JOHAN ALEGRIAAllanCANDY ([id number])[facility]OSPITALSujata [facility] (SBHLAB)[address] RBC (Bld) [#/Vol] 4.49 10*6/uL Normal 3.80-5.20 [facility] Comment on above: Performed By: #### L [id number] ####[employer]visor [employer]: JOHAN WATTSCANDY ([id number])[facility]ITALSujata [facility]IERREZGIL[facility] (SBHLAB)[address] WBC (Bld) [#/Vol] 14.1 10*3/uL High 3.6-10.7 [facility] Comment on above: Performed By: #### L [id number] ####[employer]: JOHAN WATTSCANDY ([id number])[facility]ITALSujata [facility]IERREZGIL[facility] (SBHLAB)[address] COMPREHENSIVE METABOLIC PANE Alex 08-06-2024 Albumin [Mass/Vol] 2.8 g/dL Low 3.4-4.8 [facility] Comment on above: Performed By: #### L [id number] ####[employer]visor [employer]: JOHAN BHANDARI ([id number])[facility] [place] (SBHLAB)[address] ALP [Catalytic activity/Vol] 83 U/L Normal 40-150 [facility] Comment on above: Performed By: #### L [id number] ####[employer]: JOHAN BHANDARI ([id number])[facility] [place] (SBHLAB)[address] ALT [Catalytic activity/Vol] 6 U/L Normal <30 [facility] Comment on above: Performed By: #### L [id number] ####[employer]visor [employer]: JOHAN WATTSCANDY ([id number])[facility] [place] (SBHLAB)[address] Anion gap [Moles/Vol] 10 mmol/L Normal 3-13 [facility] Comment on above: Performed By: #### L [id number] ####[employer]visor [employer]: JOHAN WATTSCANDY ([id number])[facility] [place] (SBHLAB)[address] AST [Catalytic activity/Vol] 16 U/L Normal <34 [facility] Comment on above: Performed By: #### L [id number] ####[employer]visor [employer]: JOHAN BHANDARI ([id number])[facility] [place] (SBHLAB)[address] Bilirubin [Mass/Vol] 0.4 mg/dL Normal <1.2 [facility] Comment on above: Performed By: #### L [id number] ####[employer]visor [employer]: JOHAN BHANDARI ([id number])[facility] [place] (SBHLAB)[address] Calcium [Mass/Vol] 10.3 mg/dL High 8.8-10.0 [facility] Comment on above: Performed By: #### L [id number] ####[employer]visor [employer]: JOHAN BHANDARI ([id number])[facility] [place] (SBHL[facility])[address] Chloride [Moles/Vol] 95 mmol/L Low 98-107 [facility] Comment on above: Performed By: #### L [id number] ####[employer]visor [employer]: JOHAN BHANDARI ([id number])[facility]OSPITALSujata [facility] (SBHLAB)[address] CO2 [Moles/Vol] 30 mmol/L Normal 23-31 [facility] Comment on above: Performed By: #### L [id number] ####Supervisor [employer]: JOHAN BHANDARI ([id number])[facility] (SBHLAB)[address] Creatinine [Mass/Vol] 0.84 mg/dL Normal 0.57-1.11 [facility] Comment on above: Performed By: #### L [id number] ####Supervisor [employer]: JOHAN BHANDARI ([id number])[facility] (HLAB)[address] [place] [address] GLOMERULAR FILTRATION RATE ML/MIN/1.73 SQ M.PREDICTED 68.2 mL/min/1.73m*2 Normal >60.0 [facility] Comment on above: Result Comment: Calc ulation based on the Chronic Kidney Disease Epidemiology Collaboration (CKD-EPI) equation refit without adjustment for race Performed By: #### L [id number] ####[employer]visor [employer]: JOHAN BHANDARI ([id number])[facility] (SBHLAB)[address] [place] [address] Glucose [Mass/Vol] 123 mg/dL High 82-115 [facility] Comment on above: Performed By: #### L [id number] ####Supervisor [employer]: JOHAN BHANDARI ([id number])[facility] (HLAB)[address] [place] [address] Potassium [Moles/Vol] 3.9 mmol/L Normal 3.5-5.1 [facility] Comment on above: Result Comment: [facility] potassium values may be up to 0.5 mmol/L lower than serum values. Performed By: #### L [id number] ####[employer]visor [employer]: JOHAN BHANDARI ([id number])[facility]OSPITALSujaat GUTIERREZERTON (SBHLAB)[address] Protein [Mass/Vol] 7.7 g/dL Normal 6.4-8.3 [facility] Comment on above: Performed By: #### L [id number] ####[employer]visor [employer]: JOHAN THONY ([id number])[facility] [place] (SBHLAB)[address] Sodium [Moles/Vol] 135 mmol/L Low 136-145 [facility] Comment on above: Performed By: #### L [id number] ####Supervisor [employer]: JOHANNICKY BHANDARI ([id number])[facility]PITALSujata [place]REZERT[place] (SBHLAB)[address] [place] [address] Urea nitrogen [Mass/Vol] 27 mg/dL High 9-23 [facility] Comment on above: Performed By: #### L [id number] ####[employer]visor [employer]: JOHAN BHANDARI ([id number])[facility]ITALSujata [place] (SBHLAB)[address] Comprehensive metabolic 1998 panelon 08-06-2024 Albumin [Mass/Vol] 2.8 g/dL Low 3.4 - 4.8 g/dL [facility] ALP [Catalytic activity/Vol] 83 U/L 40 - 150 U/L [facility] ALT [Catalytic activity/Vol] 6 U/L NINF - 30 U/L [facility] Anion gap [Moles/Vol] 10 mmol/L 3 - 13 mmol/L [facility] AST [Catalytic activity/Vol] 16 U/L NINF - 34 U/L [facility] Bilirubin [Mass/Vol] 0.4 mg/dL NINF - 1.2 mg/dL [facility] Calcium [Mass/Vol] 10.3 mg/dL High 8.8 - 10. 0 mg/dL [facility] Chloride [Moles/Vol] 95 mmol/L Low 98 - 10 7 mmol/L [facility] CO2 [Moles/Vol] 30 mmol/L 23 - 31 mmol/L [facility] Creatinine [Mass/Vol] 0.84 mg/dL 0.57 - 1.11 mg/dL [facility] GFR/1.73 sq M.predicted (S/P/Bld) [Vol rate/Area] 68.2 mL/min - PINF [facility] Comment on above: Calculation based on the Chronic Kidney Disease Epidemiology Collaboration (CKD-EPI) equation refit without adjustment for race Glucose [Mass/Vol] 123 mg/dL High 82 - 115 mg/dL [facility] Interpretation and review of laboratory results Abnormal [facility] Potassium [Moles/Vol] 3.9 mmol/L 3.5 - 5.1 mmol/L [facility] Comment on above: Plasma potassium gustavo ues may be up to 0.5 mmol/L lower than serum values. Protein [Mass/Vol] 7.7 g/dL 6.4 - 8.3 g/dL [facility] Sodium [Moles/Vol] 135 mmol/L Low 136 - 145 mmol/L [facility] Urea nitrogen [Mass/Vol] 27 mg/dL High 9 - 23 mg/dL [facility] Laboratory - Microbiology an d Antimicrobial susceptibilityOrdered By: Marianna Chapman on 08-06-2024 Bacteria identified Aer cx Nom (Lower resp) Moderate respiratory suri present. [facility] Bacteria identified Aer cx Nom (Lower resp) Many Haemophilus influenzae Abnormal [facility] Progress Noteon 08-06-2024 Progress Note [facility] Pulmonary Medicine [address] [place], [place] [id number] Patient - Emily Peralta, Age - 83 y.o. - 1940 Room Number - [id number] B Consulting - Tate Givens MD Primary Care Physician - No primary care provider on file. [facility] # - [id number] Date of Admission - 08/03/2024 4:21 PM Hospital Day - 3 Chief Complaint: shortness of breath Emily Peralta is a 83 y.o. female who pulmonary is following for acute on chronic hypoxemic respiratory failure, CAP Interval History No acute events overnight. Patient is a poor historian. She wants to be discharged. Still requiring 12 LPM salter cannula. She states her breathing overall is improved, still with occasional cough, no chest pain. Stable leg swelling. She is hemodynamically stable and in no acute distress. All other systems reviewed and negative unless otherwise stated in HPI. Objective Vitals: BP 136/65 Pulse 71 Temp (!) 35.5 ?C (95.9 ?F) (Temporal) Resp 18 Ht 5' (1.524 m) Wt 220 lb (99.8 kg) SpO2 93% BMI 42.97 kg/m? Pulse Ox: SpO2 Av.8 % Min: 91 % Max: 95 % Supplemental O2: O2 Flow Rate (L/min): 10 L/min I/O 24HR INTAKE/OUTPUT: No intake or output data in the 24 hours ending 08/06/24 1157 Exam General appearance: Awake, alert, no acute distress. On 10 liters/min SC. HEENT: Normocephalic, atraumatic. No scleral icterus, no right/left eye discharge. Conjunctivae normal. Pupils equal round and reactive to light. Right external ear normal, Left external ear normal. No congestion. Mouth: mucous membranes moist. Pharynx, Oropharynx is clear. No oropharyngeal exudate. Neck: ROM normal, No thyromegaly. No cervical lymphadenopathy Cardiovascular: Regular rate and rhythm. Heart sounds normal. Negative for murmur, friction rub, or gallop. Pulmonary: Effort normal, no respiratory distress. No stridor. No wheezing. Abdomen: Soft, no distention, no abdominal tenderness. No guarding. No masses. Musculoskeletal: ROM normal. Skin: Warm and dry. Skin is not jaundiced. No rash Extremities: No clubbing or cyanosis. 2+ pitting lower extremity edema. Neurological: No focal deficits. Alert and oriented x person, place and time. Mental status is at baseline. No motor weakness. Psychiatric: Mood, behavior, thought content normal. Cooperative with exam. Medications Current Medications Scheduled Meds[1] PRN Mediations PRN Meds[2] IV Drips/Infusions Continuous Meds[3] Labs CBC Results from last 7 days Lab Units 08/06/24 0233 WBC AUTO 10*3/uL 14.1* HEMOGLOBIN g/dL 13.0 HEMATOCRIT % 39.6 PLATELETS 10*3/uL 160 BMP: Results from last 7 days Lab Units 08/06/24 0233 08/03/24 1712 SODIUM mmol/L 135* 136 POTASSIUM mmol/L 3.9 4.0 CHLORIDE mmol/L 95* 96* CO2 mmol/L 30 29 BUN mg/dL 27* 13 CREATININE mg/dL 0.84 0.79 GLUCOSE mg/dL 123* 90 CALCIUM mg/dL 10.3* 9.7 ABG: Results from last 7 days Lab Units 08/04/24 1135 SOURCE OF OXYGEN High Flow Oxygen Therapy (FiO2) LIVER PROFILE Results from last 7 days Lab Units 08/06/24 0233 08/03/24 1712 ALK PHOS U/L 83 85 BILIRUBIN TOTAL mg/dL 0.4 0.8 PROTEIN TOTAL g/dL 7.7 7.7 ALT U/L 6 <6 AST U/L 16 17 INR PTT No results found for: PTT Cultures Pneumonia PCR (08/04/24): Haemophilus influenzae, rhinovirus Radiology All relevant/recent imaging was personally reviewed by me. Please see official radiology report for details. CXR (08/03/24) Limited exam due to obesity and hypoinflation lungs and portable technique. There appears to be hypoinflation lungs with pulmonary vascular prominence with prominent interstitial markings with small area of infiltrate or atelectasis right lower lobe and possible left lung base. Advanced degenerative joint disease both shoulders Assessment Acute on chronic hypoxemic respiratory failure Chronic hypercarbic respiratory failure CAP due to Haemophilus influenzae Rhinovirus URI Possible asthma Trivial smoking history Morbid obesity Possible JOCELIN/OHS Recommendations CXR concerning for CAP involving the right lower lobe, pneumonia PCR results noted, agree with ceftriaxone, recommend total 7 days of antibiotics I question her diagnosis of COPD, she has a very trivial smoking history, it is possible she may have asthma, no wheezing on exam today, she is receiving scheduled methylprednisolone so will monitor this for now, OK to continue scheduled Duonebs, consider CT chest without contrast for further evaluation of the parenchyma if any clinical worsening VBG concerning for some component of chronic CO2 retention, possibly has underlying OHS, recommend against BiPAP nightly for now given significant O2 requirements, doubt she would be compliant with nocturnal PAP going forward Pitting leg swelling noted, BNP elevated given age and BMI, TTE has been ordered for further evaluation of LV and right heart function Wean supplemental O2 for goal SpO (more content not included)... Normal Q-Layer [facility] US Heart TransthoracicOrdere d By: Reji Lay on 08-06-2024 Ao Root Index 1.86 cm/m2 [facility] Work Phone: Aortic Arch 2.7 [facility] Work Phone: Aortic Root 3.6 [facility] Work Phone: Aortic Sinus Valsalva 3.6 cm [facility] Work Phone: Aortic Sinus Valsalva Index 1.86 cm/m2 [facility] Work Phone: Aortic valve Mean systole pressure gradient by US.doppler derived full Bernoulli 9 mmHg [facility] Work Phone: Aortic valve Orifice area by US 3.8 cm2 [facility] Work Phone: Aortic valve Peak systolic flow by US.doppler 1.4 m/s [facility] Work Phone: Ascending Aorta 4.5 cm [facility] Work Phone: Ascending Aorta Index 2.32 cm/m2 [facility] Work Phone: AV Area by Peak Velocity 1.9 cm2 [facility] Work Phone: AV Area by VTI 2.3 cm2 [facility] Work Phone: AV AT 91.34 ms [facility] Work Phone: AV Peak Gradient 15 mmHg [facility] Work Phone: AV Peak Velocity 2 m/s [facility] Work Phone: AV Velocity Ratio 0.5 [facility] Work Phone: AV VTI 36.6 cm [facility] Work Phone: WILLIE/BSA Peak Velocity 1 cm2/m2 [facility] Work Phone: WILLIE/BSA VTI 1.2 cm2/m2 [facility] Work Phone: E/E' Lateral 10.43 [facility] Work Phone: E/E' Ratio (Averaged) 12.51 [facility] Work Phone: E/E' Septal 14.6 [facility] Work Phone: Est. RA Pressure 3 mmHg [facility] Work Phone: Fractional Shortening 2D 47 % 28 - 44 % [facility] Work Phone: Interpretation and review of laboratory results Abnormal [facility] Work Phone: IVC Diameter 2.1 cm [facility] Work Phone: IVSd 1.6 cm Abnormal 0.6 - 0.9 cm [facility] Work Phone: LA Diameter 3.1 cm [facility] Work Phone: LA Size Index 1.6 cm/m2 [facility] Work Phone: LA Volume 4C 61 mL Abnormal 22 - 52 mL [facility] Work Phone: LA Volume Index 4C 31 mL/m2 16 - 34 mL/m2 [facility] Work Phone: LA/AO Root Ratio 0.86 [facility] Work Phone: LV E' Lateral Velocity 7 cm/s [facility] Work Phone: LV E' Septal Velocity 5 cm/s [facility] Work Phone: LV Mass 2D 181.4 g Abnormal 67 - 162 g [facility] Work Phone: LV Mass 2D Index 93.5 g/m2 43 - 95 g/m2 [facility] Work Phone: LV RWT Ratio 0.94 [facility] Work Phone: LVIDd 3.2 cm Abnormal 3.9 - 5.3 cm [facility] Work Phone: LVIDd Index 1.65 cm/m2 [facility] Work Phone: LVIDs 1.7 cm [facility] Work Phone: LVIDs Index 0.88 cm/m2 [facility] Work Phone: LVOT Cardiac Output 6.5 liter/mi nut e [facility] [employer] Work Phone: LVOT Diameter 2.2 cm [facility] [employer] Work Phone: LVOT Mean Gradient 2 mmHg [facility] [employer] Work Phone: LVOT Peak Gradient 4 mmHg [facility] [employer] Work Phone: LVOT Peak Velocity 1 m/s [facility] [employer] Work Phone: LVOT Stroke Volume Index 41.7 mL/m2 [facility] [employer] Work Phone: LVOT SV 80.9 ml [facility] [employer] Work Phone: LVOT VTI 21.3 cm [facility] [employer] Work Phone: LVOT:AV VTI Index 0.58 [facility] [employer] Work Phone: LVPWd 1.5 cm Abnormal 0.6 - 0.9 cm [facility] [employer] Work Phone: MV A Velocity 0.61 m/s [facility] [employer] Work Phone: MV E Velocity 0.73 m/s [facility] [employer] Work Phone: MV E Wave Deceleration Time 206.8 ms [facility] [employer] Work Phone: MV E/A 1.2 [facility] [employer] Work Phone: RV Free Wall Peak S' 15 cm/s [facility] Work Phone: Sinotubular Junction 3 cm [facility] [employer] Work Phone: [facility] [employer] Work Phone: US Heart Transthoracicon Left Ventricle: Not well visualized. Left ventricle is smaller than normal. Moderately increased wall thickness. Normal left ventricular systolic function. The EF by visual approximation is 60%. Normal wall motion. Right Ventricle: Not assessed due to poor image quality. Right ventricle size is normal. Grossly normal systolic function. Aortic Valve: Not well visualized. Mildly calcified cusps. Tricuspid Valve: Unable to assess RVSP due to insignificant tricuspid regurgitation. Aorta: Normal sized sinuses of Valsalva. Dilated ascending aorta. Ao ascending diameter is 4.5 cm. Technically difficult study. Left Ventricle Not well visualized. Left ventricle is smaller than normal. Moderately increased wall thickness. Normal left ventricular systolic function. The EF by visual approximation is 60%. Normal wall motion. Indeterminate diastolic function. Right Ventricle Not assessed due to poor image quality. Right ventricle size is normal. Normal systolic function. Left Atrium Not assessed due to poor image quality. Right Atrium Not assessed due to poor image quality. IVC/SVC IVC diameter is normal and decreases greater than 50% during inspiration; therefore the estimated right atrial pressure is normal (~3 mmHg). Mitral Valve Not well visualized. Mild annular calcification (posterior). Trace regurgitation. No stenosis noted. Tricuspid Valve Not well visualized. No regurgitation. Unable to assess RVSP due to insignificant tricuspid regurgitation. Aortic Valve Not well visualized. Mildly calcified cusps. Trace regurgitation. No stenosis. Pulmonic Valve The pulmonic valve visualization is suboptimal but appears to be functioning normally. Trace regurgitation. Ascending Aorta Normal sized sinuses of Valsalva. Dilated ascending aorta. Ao ascending diameter is 4.5 cm. Pericardium Evidence of prominent epicardial fat. No pericardial effusion. Septum Interatrial septum was not well visualized. Study Details Image quality: poor. Heart rate: 75 bpm. Blood pressure: 121/70 mmHg. Technical qualifiers: Technically difficult study with poor endocardial visualization, technically difficult study due to patient's body habitus and procedure performed with the patient in a sitting position. Ultrasound enhancement agent was given to enhance imaging. Echo Additional Conclusions Technically difficult study. [facility] XR CHEST 1 VIEWon 08-06-2024 XR CHEST 1 VIEW Patient Name: EMILY PERALTA : 1940 [facility]#: [id number] Exam Date/Time: 08/06/2024 12:09 Procedure: XR CHEST 1 VIEW Ordering Provider: NERI MANSUR Reason For Exam: follow-up pneumonia EXAMINATION: CHEST RADIOGRAPH (SINGLE VIEW AP OR PA) Clinical History: follow-up pneumonia Comparison: Radiograph 08/03/2024 RESULT: See impression IMPRESSION: Lines, tubes, and devices: None. Lungs and pleura: Prominence of the central pulmonary vasculature without overt pulmonary edema. Streaky bibasilar opacities including left basilar retrocardiac opacity, likely atelectasis or scarring. Superimposed left basilar retrocardiac infectious/inflammato ry process is not excluded. Mild interval improvement of right basilar opacity. No sizeable pleural effusion or pneumothorax. Cardiomediastinal silhouette: Stable enlarged cardiac silhouette.Atheroscle rotic calcifications of the aortic arch Other: Degenerative changes of the spine and shoulders. Incompletely visualized lumbar fusion hardware. Report Dictated on Electronically Signed By: Ki Payne MD Electronically Signed Date/Time: 08/06/2024 12:12 PM EDT [facility] XR Chest Single viewon 08-06 Lines, tubes, and devices: None. Lungs and pleura: Prominence of the central pulmonary vasculature without overt pulmonary edema. Streaky bibasilar opacities including left basilar retrocardiac opacity, likely atelectasis or scarring. Superimposed left basilar retrocardiac infectious/inflammato ry process is not excluded. Mild interval improvement of right basilar opacity. No sizeable pleural effusion or pneumothorax. Cardiomediastinal silhouette: Stable enlarged cardiac silhouette.Atheroscle rotic calcifications of the aortic arch Other: Degenerative changes of the spine and shoulders. Incompletely visualized lumbar fusion hardware. Report Dictated on Electronically Signed By: Ki Payne MD Electronically Signed Date/Time: 08/06/2024 12:12 PM EDT [facility] Patient Name: EMILY PERALTA : 1940 Exam Date/Time: 08/06/2024 12:09 Procedure: XR CHEST 1 VIEW Ordering Provider: NERI MANSUR Reason For Exam: follow-up pneumonia EXAMINATION: CHEST RADIOGRAPH (SINGLE VIEW AP OR PA) Clinical History: follow-up pneumonia Comparison: Radiograph 08/03/2024 RESULT: See [facility] Ki Payne MD - 08/06/2024 Patient Name: EMILY PERALTA : 1940 Exam Date/Time: 08/06/2024 12:09 Procedure: XR CHEST 1 VIEW Ordering Provider: NERI MANSUR Reason For Exam: follow-up pneumonia EXAMINATION: CHEST RADIOGRAPH (SINGLE VIEW AP OR PA) Clinical History: follow-up pneumonia Comparison: Radiograph 08/03/2024 RESULT: See impression IMPRESSION: Lines, tubes, and devices: None. Lungs and pleura: Prominence of the central pulmonary vasculature without overt pulmonary edema. Streaky bibasilar opacities including left basilar retrocardiac opacity, likely atelectasis or scarring. Superimposed left basilar retrocardiac infectious/inflammato ry process is not excluded. Mild interval improvement of right basilar opacity. No sizeable pleural effusion or pneumothorax. Cardiomediastinal silhouette: Stable enlarged cardiac silhouette.Atheroscle rotic calcifications of the aortic arch Other: Degenerative changes of the spine and shoulders. Incompletely visualized lumbar fusion hardware. Report Dictated on Electronically Signed By: Ki Payne MD Electronically Signed Date/Time: 08/06/2024 12:12 PM EDT [facility] Radiology Study observation (narrative) [facility] X[facility] Chest Single viewOrdered By: Ki Payne on 08-06-2024 [facility] [employer] Work Phone: 30on 08-05-2024 30 Problem: Knowledge Deficit Goal: Patient/family/caregi krysta demonstrates understanding of disease process, treatment plan, medications, and discharge instructions Outcome: Progressing Problem: Potential for Compromised Skin Integrity Goal: Skin Integrity is Maintained or Improved Outcome: Progressing Goal: Nutritional status is improving Outcome: Progressing Problem: Urinary Incontinence Goal: Perineal skin integrity is maintained or improved Outcome: Progressing Normal [facility] 30 Problem: Knowledge Deficit Goal: Patient/family/caregi krysta demonstrates understanding of disease process, treatment plan, medications, and discharge instructions Outcome: Not Progressing Problem: Potential for Compromised Skin Integrity Goal: Skin Integrity is Maintained or Improved Outcome: Progressing Problem: Potential for Compromised Skin Integrity Goal: Nutritional status is improving Outcome: Progressing Problem: Urinary Incontinence Goal: Perineal skin integrity is maintained or improved Outcome: Progressing Problem: Knowledge Deficit Goal: Patient/family/caregi krysta demonstrates understanding of disease process, treatment plan, medications, and discharge instructions Outcome: Not Progressing Normal [facility] Consulton 08-05-2024 Consult Nutrition Assessment Type and Reason for Visit: Initial, Wound, Consult Nutrition Recommendations/Plan: Continue Regular Diet Assist and encourage patient to participate in room service and order well balanced meals Please document all oral intake in EMR for most accurate nutrient intake assessment As able, please obtain weekly standing scale weights for most accurate anthropometric data and calculation of macronutrient and fluid needs RDN to continue to monitor weekly: fluid accumulation, weight, skin integrity, trends in lab values, tolerance of PO, improvement in clinical status, discharge planning. Malnutrition Assessment: Malnutrition Status: Insufficient data Context: Chronic Illness Findings of the 6 clinical characteristics of malnutrition: Energy Intake: 75% or less estimated energy requirements for 1 month or longer (predicted) Weight Loss: Unable to assess Body Fat Loss: Unable to assess Muscle Mass Loss: Unable to assess Fluid Accumulation: Mild Extremities Pharmacy Teacher 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 Presented to [facility] via EMS from SNF with low pulse ox readings and SOB. Patient refused evaluation all day, eventually agreed in late afternoon on 08/03. Significant labs on admit WBC(11.7). Chest imaging concerning for RLL pneumonia and some pulmonary vascular congestion. In ED resistant to care, and refused to wear BiPAP. +PCR for rhinovirus. Admitted for continued workup, +pulmonology following and supporting. +12 L O2 via NC this morning. Sitting up to chair at time of assessment, very short and standoff-fransisco. Requested to have no dairy with meals, and requested prilosec to assist with heartburn. When I asked if she eats well outside of the hospital she replied: sometimes yes, sometimes no... it doesn't matter. Spoke with RN post visit, picked at oatmeal and a banana. RN also reported that she asked for milk with breakfast... Deferred NFPE. Estimated Daily Nutrient Needs: Energy Requirements Based On: Kcal/kg Weight Used for Energy Requirements: [place] Weight for Energy Calculation (kg): 45 kg Total Energy Requirements (kcals/day): 9718-5133 (25-30 kcal/kg IBW) Weight Used for Protein Requirements: [place] Weight in Kg Used for Protein Requirements: 45 kg Estimated Total Protein (g/day): 54-68 (1.2-1.5 g protein/kg IBW) Estimated Daily Total Fluid (ml/day): per MD Nutrition Related Findings: +I/O balance. A+O to self. poor judgement. +12 L O2 via NC. Poor PO. Emile score=15 with DTI. +nonpitting BLE Edema noted. meds: rocephin, lexapro, lasix, synthropid, solumedrol, PPI. Labs: HCO3(36.8), CO2(61). Wound Type: Deep Tissue Injury (+DTI noted to right buttock) Current Nutrition Therapies: Adult diet Regular Current Oral Intake Average Meal Intake: 1-25%, 0% Average Supplements Intake: None Ordered, Refusing to take Anthropometric Measures: Height: 152.4 cm (5') Current Body Weight: 99.8 kg (220 lb) Weight Source: Stated Admission Body Weight: 99.8 kg (220 lb) Usual Body Weight: 89.4 kg (197 lb) (11/11/23) % Weight Change (Calculated): 11.7 [place] Body Weight (lbs) (Calculated): 100 lbs [place] Body Weight (Kg) (Calculated): 45 kg % [place] Body Weight (Calculated): 220 % BMI (kg/m2) (Calculated): 43 Weight Adjustment For: No Adjustment BMI Categories: Obese Class 3 (BMI 40.0 or greater) Nutrition Diagnosis: Increased nutrient needs related to acute injury/trauma, impaired respiratory function as evidenced by (COPD exacerbation) Nutrition Interventions: Nutrition Education/Counseling: Education not indicated Coordination of Nutrition Care: Continue to monitor while inpatient Plan of Care discussed with: Rn and patient Goals: Previous Goal Met: Progressing toward Goal(s) Goals: PO intake 50% or greater Nutrition Monitoring and Evaluation: Behavioral-Environmen miles Outcomes: None Identified Food/Nutrient Intake Outcomes: Food and Nutrient Intake Physical Signs/Symptoms Outcomes: Biochemical Data, GI Status, Meal Time Behavior, Weight, Skin, Fluid Status or Edema, Nutrition Focused Physical Findings, Nausea or Vomiting Discharge Planning: Continue current diet Zuleyka Saul RDN, LDN, Contact: *[phone] [facility] Consult [facility] Wound Care CONSULT Note Emily Peralta AGE: 83 y.o. GENDER: female : 1940 Subjective: HISTORY of PRESENT ILLNESS HPI Emily Peralta is a 83 y.o. female who presents for a wound consult. HPI: Ms. Peralta is a 83 y.o. female with past medical history significant for COPD. Patient presented to the emergency room from fdc facility for shortness of breath. Patient admitted with COPD. Patient reports always has soreness to buttock area. Denies any treatment. Wound Care consulted for pressure injury right buttock. PAST MEDICAL HISTORY Medical History[1] PAST SURGICAL HISTORY Surgical History[2] FAMILY HISTORY Family History[3] SOCIAL HISTORY Social History[4] ALLERGIES Allergies[5] MEDICATIONS Medications Ordered Prior to Encounter[6] REVIEW OF SYSTEMS Pertinent items are noted in HPI. Objective: BP 108/67 (BP Location: Right arm, Patient Position: Sitting) Pulse 71 Temp 36.6 ?C (97.9 ?F) (Temporal) Resp 18 Ht 1.524 m (5') Wt 99.8 kg (220 lb) SpO2 92% BMI 42.97 kg/m? PHYSICAL EXAM General appearance: in no apparent distress, well developed and well nourished, and alert, obese Skin: warm and dry Pulmonary: Normal effort, no respiratory distress, no cyanosis Right buttock: 1.0cmx0.3cmxUTD. Non-blanchable purple discoloration noted. No openings. No drainage. Periwound fragile 08/04/24 LABS CBC: Lab Results Component Value Date WBC 11.7 (H) 08/03/2024 HGB 13.7 08/04/2024 HCT 41.5 08/03/2024 MCV 90.8 08/03/2024 PLT 141 08/03/2024 BMP: Lab Results Component Value Date NA 136 08/03/2024 K 4.0 08/03/2024 CL 96 (L) 08/03/2024 CO2 29 08/03/2024 BUN 13 08/03/2024 CREATININE 0.79 08/03/2024 PT/INR: No results found for: PROTIME, INR Prealbumin: No results found for: PREALBUMIN Albumin:No components found for: LABALBU Sed Rate:No results found for: SEDRATE Micro: No components found for: BC Assessment/Plan: Nursing staff to perform dressing change: Right buttock: Pressure Injury (DTI) - Clean with soap and water, apply ET mix then leave LISA TID and PRN - Reposition q2hrs - Incontinent checks q2hrs - Waffle cushion while in chair Nutritional support Wound Care to follow Recommend to follow up at [facility] wound care center after hospital discharge. Any questions or concerns please secure chat [facility] wound/ostomy. Thank you for the consult! I personally obtained the quinn and critical portions of the history and physical exam. I reviewed the labs, imaging studies, and electronic medical record. I reviewed the chart documentation and discussed the patient with treatment team members. I have edited the note to reflect my clinical findings and my assessment and plan. Please note, the time of this note does not reflect the time I saw this patient today, but the time of this documentaton. Portions of this note including HPI, ROS, impression/plan, and examination may have been copied forward from admission to today as to provide important historical information essential in contributing to medical decision making. Documentation has been reviewed and edited as necessary to support clinical decision making for today's visit and to reflect my own independent evaluation of this patient. Decision making for today's visit and to reflect my own independent evaluation of this patient. [1] No past medical history on file. [2] No past surgical history on file. [3] No family history on file. [4] Social History Tobacco Use Smoking status: Never Smokeless tobacco: Never [5] Allergies Allergen Reactions Morphine Hives Other Reaction(s): HIVES, ITCHING , NAUSEA Aspartame Codeine Duloxetine Unknown Lorazepam Oxycodone Wound Dressing Adhesive [6] No current facility-administered medications on file prior to encounter. Current Outpatient Medications on File Prior to Encounter Medication Sig Dispense Refill acetaminophen (Tylenol) 325 MG tablet Take 325 mg by mouth every 8 hours. Albuterol Sulfate 108 (90 Base) MCG/ACT aerosol powder Inhale 2 puffs every 4 hours as needed (SOB/ Wheezing). amLODIPine (Norvasc) 5 MG tablet Take 5 mg by mouth Every 24 hours. baclofen (Lioresal) 10 MG tablet Take 10 mg by mouth every 8 hours. beclomethasone HFA (Qvar) 40 MCG/ACT inhaler Inhale 40 mcg every 12 hours. benzonatate (Tessalon) 100 MG capsule Take 100 mg by mouth 3 times daily as needed for cough. bisacodyl (Dulcolax) 10 MG suppository Insert 10 mg into the rectum Daily as needed for constipation. cefdinir (Omnicef) 300 MG capsule Take 300 mg by mouth 2 times daily. escitalopram (Lexapro) 10 MG tablet Take 10 mg by mouth Nightly. Esomeprazole Magnesium 20 MG tablet delayed-release Take 20 mg by mouth Every 24 hours. furo (more content not included)... Normal [facility] Nursing Noteon 08-05-2024 Nursing Note Patient informed PO steroids were changed back to IV steroids. Patient continues to refuse steroids due to feeling restless and irritable. [facility] Nursing Note RN at bedside to administer PO Prednisone. Patient adamantly refusing to take steroids because they make her restless and irritable. Patient requesting more hydroxyzine because she already feels restless and irritable. RN informed patient of next available time for hydroxyzine to be administered. Dr. Givens notified and RN requested increase in hydroxyzine per patient request. [facility] Progress Noteon 08-05-2024 Progress Note Found pt. On 12L HFN C saturation 97% at this time. Turned pt. Down to 10L HFNC and saturation was 93% prior to her breathing tx. Sent a secure chat to physician that 10L is 60% FIO2 which per our protcol is the max oxygen for the floors. Normal [facility] Progress Note PHYSICAL THERAPY [facility] Treatment Note Name/MRN: Emily Peralta ([id number]) Date of : 1940 Age: 83 y.o. Room[facility]: [facility] B Visit #: 1 out of 5 Discharge Recommendation: [facility] Equipment Needed: No Assessment Pt continues to make good overall progress towards established therapy goals this date. Remains limited by fatigue, weakness and short term memory loss limiting ability to perform multi part tasks. Pt completed STS transfers with fww at Min Ax1, Gait training with fww completed at Min Ax1. Pt tolerated all activity well and gave good overall effort. Pt will continue to benefit from skilled therapy services during acute medical stay to improve upon presenting deficits prior to discharge to SNF. Subjective Pt pleasant and agreeable to PT session. Pt made note of short term memory loss and requires frequent redirection to task at hand to perform. RN cleared pt for session. Vitals On 12L O2 via HFNC Spo2 93-96% during all mobility Pain: Pt denies any current pain. Medical Precautions: Droplet Proper PPE donned/doffed in accordance with facility standards. Fall Risk: Sotomayor Fall Risk Score: 60 (Low Risk) Sotomayor Fall Risk Score: 60 (High Risk) Precautions/Restricti ons: Lines/Drains/Airways: 12L HFNC Fall Precautions Overall Cognitive Status: Exceptions - Following commands: follows one step commands with increased time, follows one step commands with repetition, follows multi-step commands with increased time, and follows multi-step commands with repetition - Attention span: difficulty attending to directions - Memory: decreased short term memory - Problem solving: assistance required to generate solutions, assistance required to implement solutions, assistance required to identify errors made, and assistance required to correct errors made - Sequencing: requires cues for some Overall Orientation Status: Oriented x4 Family/Caregiver Present: none Objective Bed Mobility Pt up in chair upon arrival Transfers/Mobility Sit to stand: Min Assist Stand to sit: Min Assist Pt completed STS x8 with emphasis on proper hand placement, sequencing of trunk and BLEs, body mechanics and overall pacing of activity. Fair return noted. Pt was able to complete rapid 5x STS in 23 seconds. Moderate SOB noted with activity requiring increased time for recovery between bouts of transfer training. Increased time and effort needed to complete transfer training. Device(s) used: Front wheeled walker Ambulation Ambulation 1 Assistive device(s) used: Front wheeled walker Assist level: Min Assist Distance (ft): 30ft x2 Quality of gait: reciprocal stepping, B foot clearance, shuffling, uneven step length, wide TSERING, slow moses, postural sway, path deviations, instability through all phases Pt completed gait training with fww at Min Ax1 and cues for directional assist, device management, obstacle avoidance, body mechanics and overall pacing. Fair return noted. No overt LOB. Fair overall tolerance despite moderate SOB between bouts in seated positioning. Plan Continue acute PT per plan of care. Safety/Education Safety Safety Devices in place: All fall risk precautions in place, call light within reach, left in chair, gait belt, patient at risk for falls, nurse notified, and no alarms engaged upon entry Restraints: N/A Education Education Given To: patient Education Provided: PT Role, PT Goals, Gait Training, Plan of Care, Transfer Training, Energy Conservation, IADL Safety, Orientation, Equipment, Fall Prevention Education, Discharge Recommendations, and Benefits of Increasing Activity Education Method: Verbal, Demonstration, and Teach Back Barriers to Learning: Cognition Education Outcome: Verbalized Understanding, Demonstrated Understanding, and Continued Education Needed Outcome Measures AM-PAC AM-PAC Inpatient Mobility Raw Score (No Stairs) : 15 JH-HLM -HLM Score: Walked 25 ft or more (i.e. walked outside of room) Goals Patient Stated Goal: None stated Encounter Problems Encounter Problems (Active) Balance Patient will maintain dynamic standing balance for 3-5 minutes with SBA in order to demonstrate decreased risk of falling. (Progressing) Start: 08/04/24 Expected End: 08/11/24 Exercise Patient will complete lower extremity exercises for 1-2 sets / 5-10 reps in order to improve strength and activity tolerance for mobility. (Not Addressed) Start: 08/04/24 Expected End: 08/11/24 Mobility Patient will ambulate 15 feet with SBA and rolling walker in order to improve safety and independence with mobility. (Progressing) Start: 08/04/24 Expected End: 08/11/24 Transfers Patient will perform bed mobility with modified independence in order to improve independence and prepare for out of bed mobility. (Not Addressed) Start: 08/04/24 Expected End: 08/11/24 Patient will complet (more content not included)... Normal [facility] Progress Note [facility] [place] Pulmonary Medicine [address] [place], [place] [id number] Patient - Emily Peralta, Age - 83 y.o. - 1940 Room Number - [id number] B Consulting - Tate Givens MD Primary Care Physician - No primary care provider [id number] Date of Admission - 08/03/2024 4:21 PM Hospital Day - 2 Chief Complaint: shortness of breath Emily Peralta is a 83 y.o. female who pulmonary is following for acute on chronic hypoxemic respiratory failure, CAP Interval History No acute events overnight. Patient is a poor historian. She wants to be discharged. Still requiring 12 LPM salter cannula. She states her breathing overall is improved, still with occasional cough, no chest pain. Stable leg swelling. She is hemodynamically stable and in no acute distress. All other systems reviewed and negative unless otherwise stated in HPI. Objective Vitals: BP 108/72 (BP Location: Left arm, Patient Position: Sitting) Pulse 87 Temp 36.1 ?C (97 ?F) (Temporal) Resp 18 Ht 5' (1.524 m) Wt 220 lb (99.8 kg) SpO2 91% BMI 42.97 kg/m? Pulse Ox: SpO2 Av.6 % Min: 90 % Max: 96 % Supplemental O2: O2 Flow Rate (L/min): 12 L/min I/O 24HR INTAKE/OUTPUT: Intake/Output Summary (Last 24 hours) at 08/05/2024 1010 Last data filed at 08/04/2024 1815 Gross per 24 hour Intake 360 ml Output -- Net 360 ml Exam General appearance: Awake, alert, no acute distress. On 12 liters/min SC. HEENT: Normocephalic, atraumatic. No scleral icterus, no right/left eye discharge. Conjunctivae normal. Pupils equal round and reactive to light. Right external ear normal, Left external ear normal. No congestion. Mouth: mucous membranes moist. Pharynx, Oropharynx is clear. No oropharyngeal exudate. Neck: ROM normal, No thyromegaly. No cervical lymphadenopathy Cardiovascular: Regular rate and rhythm. Heart sounds normal. Negative for murmur, friction rub, or gallop. Pulmonary: Effort normal, no respiratory distress. No stridor. No wheezing. Abdomen: Soft, no distention, no abdominal tenderness. No guarding. No masses. Musculoskeletal: ROM normal. Skin: Warm and dry. Skin is not jaundiced. No rash Extremities: No clubbing or cyanosis. 2+ pitting lower extremity edema. Neurological: No focal deficits. Alert and oriented x person, place and time. Mental status is at baseline. No motor weakness. Psychiatric: Mood, behavior, thought content normal. Cooperative with exam. Medications Current Medications Scheduled Meds[1] PRN Mediations PRN Meds[2] IV Drips/Infusions Continuous Meds[3] Labs CBC Results from last 7 days Lab Units 08/04/24 1135 08/03/24 1712 WBC AUTO 10*3/uL -- 11.7* HEMOGLOBIN g/dL -- 13.2 HEMOGLOBIN BG g/dl 13.7 -- HEMATOCRIT % -- 41.5 PLATELETS 10*3/uL -- 141 BMP: Results from last 7 days Lab Units 08/03/24 1712 SODIUM mmol/L 136 POTASSIUM mmol/L 4.0 CHLORIDE mmol/L 96* CO2 mmol/L 29 BUN mg/dL 13 CREATININE mg/dL 0.79 GLUCOSE mg/dL 90 CALCIUM mg/dL 9.7 ABG: Results from last 7 days Lab Units 08/04/24 1135 SOURCE OF OXYGEN High Flow Oxygen Therapy (FiO2) LIVER PROFILE Results from last 7 days Lab Units 08/03/24 1712 ALK PHOS U/L 85 BILIRUBIN TOTAL mg/dL 0.8 PROTEIN TOTAL g/dL 7.7 ALT U/L <6 AST U/L 17 INR PTT No results found for: PTT Cultures Pneumonia PCR (08/04/24): Haemophilus influenzae, rhinovirus Radiology All relevant/recent imaging was personally reviewed by me. Please see official radiology report for details. CXR (08/03/24) Limited exam due to obesity and hypoinflation lungs and portable technique. There appears to be hypoinflation lungs with pulmonary vascular prominence with prominent interstitial markings with small area of infiltrate or atelectasis right lower lobe and possible left lung base. Advanced degenerative joint disease both shoulders Assessment Acute on chronic hypoxemic respiratory failure Chronic hypercarbic respiratory failure CAP due to Haemophilus influenzae Rhinovirus URI Possible asthma Trivial smoking history Morbid obesity Possible JOCELIN/OHS Recommendations CXR concerning for CAP involving the right lower lobe, pneumonia PCR results noted, agree with ceftriaxone, recommend total 7 days of antibiotics I question her diagnosis of COPD, she has a very trivial smoking history, it is possible she may have asthma, no wheezing on exam today, she is receiving scheduled methylprednisolone so will monitor this for now, OK to continue scheduled Duonebs, consider CT chest without contrast for further evaluation of the parenchyma if any clinical worsening VBG concerning for some component of chronic CO2 retention, possibly has underlying OHS, recommend against BiPAP nightly for now given significant O2 requirements, doubt she would be compliant with nocturnal PAP going forward Pitting leg swelling noted, BNP elevated given age and BMI, T (more content not included)... Normal [facility] BLOOD GAS, VENOUSon 08-05-19 25 AMOUNT OF OXYGEN Normal [facility] Comment on above: Result Comment: JERAMIE Murri[place] COMMENTS: Assessment of oxygenation is best done with an arterial blood gas determination. Reference ranges for pO2, bicarbonate, and base excess are for mixed venous blood. Specimens drawn from a peripheral vein will often have higher values. Performed By: #### L [id number] ####Supervisor [employer]: JOHAN BHANDARI ([id number])[facility] [place] ([facility])[address] Base excess Calc (BldV) [Moles/Vol] 9.6 mmol/L High -3.0-3.0 [facility] Comment on above: Performed By: #### L [id number] ####Supervisor [employer]: JOHAN BHANDARI ([id number])[facility] ([facility])[address] CO2 [Moles/Vol] 38.6 mmol/L High 23.0-30.0 [facility] Comment on above: Performed By: #### L [id number] ####Supervisor [employer]: JOHAN BHANDARI ([id number])[facility] ([facility])[address] HCO3 (Bld) [Moles/Vol] 36.8 mmol/L High 21.0-30.0 [facility] Comment on above: Performed By: #### L [id number] ####Supervisor [employer]: JOHAN BHANDARI ([id number])[facility] [place] ([facility])[address] Hemoglobin (Bld) [Mass/Vol] 13.7 g/dL Normal Screen only [facility] Comment on above: Performed By: #### L [id number] ####Supervisor [employer]: JOHAN BHANDARI ([id number])[facility] ([facility])[address] OXYGEN (MM HG) IN VENOUS BLOOD 54.5 mm Hg Normal [facility] Comment on above: Performed By: #### L [id number] ####Supervisor [employer]: JOHAN BHANDARI ([id number])[facility] (HLAB)[address] [place] [address] OXYGEN SATURATION (%) IN VENOUS BLOOD 87.9 % Normal [facility] Comment on above: Performed By: #### L [id number] ####Supervisor [employer]: JOHAN THONY ([id number])[facility] PCO2, MIGUEL 61.0 mm Hg High 35.0-53.0 [facility] Comment on above: Performed By: #### L [id number] ####Supervisor [employer]: JOHAN THONY ([id number])[facility] ([facility])[address] [place] [address] PH VENOUS 7.398 Normal 7.320-7.420 [facility] Comment on above: Performed By: #### L [id number] ####Supervisor [employer]: JOHAN WATTSCANDY ([id number])[facility] ([facility])[address] [place] [address] SOURCE OF OXYGEN High Flow Oxygen Therapy (FiO2) Normal [facility] Comment on above: Performed By: #### L [id number] ####Supervisor [employer]: JOHAN BHANDARI ([id number])[facility] ([facility])[address] [place] [address] Consulton 08-04-2024 Consult [facility] Pulmonary Medicine [address] [place] [address] Patient - Emily Peralta - 1940 Date of Admission - 08/03/2024 4:21 PM Date of Evaluation - 08/04/2024 Room - B2-243/B2-[facility] Day - 1 Consulting - Tate Givens MD PCP - No primary care provider on file. Reason for Consult COPD exacerbation History of Present Illness Emily Peralta is a 83 y.o. female admitted for shortness of breath, hypoxemia. Patient has a past medical history of: - possible asthma - trivial smoking history - dementia - hypothyroidism - hypertension Patient is new to the [facility] pulmonary service, patient thinks she may have seen a wire spooler several years ago. She was admitted to [facility] 08/03/24 from SNF for increasing shortness of breath with associated productive cough. She states she wears 2-4 LPM supplemental O2 nightly at the facility but not usually during the day. CXR concerning for RLL pneumonia and some pulmonary vascular congestion. She required up to 15 LPM high-flow nasal cannula. She endorses associated wheezing and chest tightness. She denies fever, chills, orthopnea, hemoptysis, abdominal pain, nausea, vomiting, diarrhea, constipation, lightheadedness, dizziness, dysuria, hematuria, melena, hematochezia, leg pain, leg swelling. She states she rarely smoked in the past, at most 1 pack her whole life but she did have significant second hand smoke exposure from first ex-. 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 She is hemodynamically stable and in no acute distress. Active Hospital Problem List Problem List[1] Medical History Past Medical History Medical History[2] Past Surgical History Surgical History[3] Social History Social History Socioeconomic History Marital status: Unknown Spouse name: Not on file Number of children: Not on file Years of education: Not on file Highest education level: Not on file Occupational History Not on file Tobacco Use Smoking status: Never Smokeless tobacco: Never Substance and Sexual Activity Alcohol use: Not on file Drug use: Not on file Sexual activity: Not on file Other Topics Concern Not on file Social History Narrative Not on file Social Drivers of Health Financial Resource Strain: Low Risk (08/04/2024) Overall Financial Resource Strain (CARDIA) Difficulty of Paying Living Expenses: Not very hard Food Insecurity: No Food Insecurity (08/04/2024) Hunger Vital Sign Worried About Running Out of Food in the Last Year: Never true Ran Out of Food in the Last Year: Never true Transportation Needs: No Transportation Needs (08/04/2024) PRAPARE - Transportation Lack of Transportation (Medical): No Lack of Transportation (Non-Medical): No Physical Activity: Inactive (08/04/2024) Exercise Vital Sign Days of Exercise per Week: 0 days Minutes of Exercise per Session: 0 min Stress: No Stress Concern Present (08/04/2024) [employer] - Occupational Stress Questionnaire Feeling of Stress : Only a little Social Connections: Unknown (08/04/2024) Social Connection and Isolation Panel [NHANES] Frequency of Communication with Friends and Family: Never Frequency of Social Gatherings with Friends and Family: Never Attends Hoahaoism Services: Never Active Member of Clubs or Organizations: No Attends Club or Organization Meetings: Never Marital Status: Patient declined Intimate Partner Violence: Not At Risk (08/04/2024) Humiliation, Afraid, Rape, and Kick questionnaire Fear of Current or Ex-Partner: No Emotionally Abused: No Physically Abused: No Sexually Abused: No Housing Stability: Low Risk (08/04/2024) Housing Stability Vital Sign Unable to Pay for Housing in the Last Year: No Number of Times Moved in the Last Year: 0 Homeless in the Last Year: No Family History Family History[4] Immunization History Immunization History Administered Date(s) Administered Moderna SARS-CoV-2 Vaccination 02/28/2021 Medications Current Medications Scheduled Meds[5] PRN Mediations PRN Meds[6] IV Drips/Infusions Continuous Meds[7] Home Medications Current Outpatient Medications Medication Instructions acetaminophen (TYLENOL) 325 mg, Every 8 hours Albuterol Sulfate 108 (90 Base) MCG/ACT aerosol powder 2 puffs, Every 4 hours PRN amLODIPine (NORVASC) 5 mg, Every 24 hours baclofen (LIORESAL) 10 mg, Every 8 hours beclomethasone HFA (QVAR) 40 mcg, Every 12 hours benzonatate (TESSALON) 100 mg, 3 times daily PRN bisacodyl (DULCOLAX) 10 mg, Daily PRN cefdinir (OMNICEF) 300 mg, 2 times daily escitalopram (LEXAPRO) 10 mg, Nightly Esomeprazole Magnesium 20 mg, Every 24 hours furosemide (LASIX) 20 mg, 2 times daily hydrOXYzine HCl (ATARAX) 25 mg, 3 times daily ipratropium-albuterol (Duo-Neb) 0.5-2.5 mg/3 mL nebulizer solution 3 mL, Every 4 hours PRN (more content not included)... Normal [facility] LEGIONELLA AND STREPTOCOCCUS URINE ANTIGENon 08-04-2024 LEGIONELLA AND STREPTOCOCCUS URINE ANTIGEN LEGIONELLA PNEUMOPHILA URINE ANTIGEN Reference Not Detected Not Detected STREPTOCOCCUS PNEUMONIAE URINE ANTIGEN Reference Not Detected Not Detected ORDER COMMENTS: Methodology: Lateral flow enzyme immunoassay This assay is approved for detection of antigens to Streptococcus pneumoniae and Legionella pneumophila serogroup 1; however, other L. pneumophila serogroups may also be detected. Normal [facility] Comment on above: Performed By: #### L [id number] #### Supervisor [employer]: ELODIA CONTRERAS ([id number]) [facility] ([facility]) [address] [place] [address] Laboratory - Chemistry and C hemistry - challengeOrdered By: Sharda Chacon on 08-04-2024 Base excess Calc (BldV) [Moles/Vol] 9.6 mmol/L High -3.0 - 3.0 mmol/L [facility] CO2 (BldV) [Partial pressure] 61 mm[Hg] High [facility] CO2 [Moles/Vol] 38.6 mmol/L High 23.0 - 30.0 mmol/L [facility] HCO3 (Bld) [Moles/Vol] 36.8 mmol/L High 21.0 - 30.0 mmol/L [facility] Oxygen (BldV) [Partial pressure] 54.5 mm[Hg] mm Hg [facility] pH (BldV) 7.398 [pH] 7.320 - 7.420 [facility] Laboratory - Hematology and Cell countsOrdered By: Sharda Chacon on 08-04-2024 Hemoglobin (Bld) [Mass/Vol] 13.7 g/dL 12.0 - 16.0 g/dl [facility] No Panel InformationOrdered By: Katarina Browning on 08-04-2024 Interpretation and review of laboratory results Normal [facility] Legionella pneumophila Ag Not detected Not Detected [facility] Streptococcus pneumoniae Ag Not detected Not Detected [facility] Methodology: Lateral flow enzyme immunoassay This assay is approved for detection of antigens to Streptococcus pneumoniae and Legionella pneumophila serogroup 1; however, other L. pneumophila serogroups may also be detected. [facility] No Panel InformationOrdered By: Sharda Chacon on 08-04-2024 Amount Of Oxygen [facility] Interpretation and review of laboratory results Abnormal [facility] Source Of Oxygen High Flow Oxygen Therapy (FiO2) [facility] Assessment of oxygenation is best done with an arterial blood gas determination. Reference ranges for pO2, bicarbonate, and base excess are for mixed venous blood. Specimens drawn from a peripheral vein will often have higher values. [facility] No Panel Informationon 08-04 Extra Tube Hold for add-ons. Rashad Erickson eapuneet Comment on above: Auto resulted. [facility] Nursing Noteon 08-04-2024 Nursing Note Wound Care consulted for Pressure Injury Prevention. Pt's Emile score= 15 on 08/04 Pt's pressure points assessed. Pt sitting in chair upon arrival for visit. Pt's Heels, Back, Elbows, Occiput and ears all intact. Pt stood with max assist from ribbon sweatband operator for posterior assessment. Blanchable erythema/purple tissues noted to bilateral buttocks. DTI noted to right buttock, linear area of nonblanchable purple tissues, measures 1cm x 0.3cm, with surrounding blanchable erythema and purple tissues. See photo below. Wound MUSHROOM CULTIVATOR group consulted. Brief in place. Pt incontinent of urine and stool. Brief removed, incontinence care provided, barrier ointment applied. Pt refused any preventative foam dressings at this time. Instructed pt on pressure injury prevention and importance of turning/postioning every 2hrs while in bed and every 15 min while sitting in chair. Instructed on use and care of waffle chair cushion. Verbalized understanding. Prevention Measures in place, including: [place] sheet with pillows/wedges, Heels elevated off bed on pillows, Zinc/Moisture Barrier ointment (applied), Waffle chair cushion (ordered for pt). Skin Care precaution order set in place. Dietitian consult order placed d/t wound. PT consult in place. D/W nursing staff. Right buttock Will continue to follow pt. Please secure chat for any questions or concerns. Mago Cavazos, ELÍAS Normal [facility] PNEUMONIA PCR PANELon 2024 PNEUMONIA PCR PANEL STAPHYLOCOCCUS AUREU S Reference Not Detected Not Detected STREPTOCOCCUS AGALACTIAE Reference Not Detected Not Detected STREPTOCOCCUS PNEUMONIAE Reference Not Detected Not Detected STREPTOCOCCUS PYOGENES Reference Not Detected Not Detected HAEMOPHILUS INFLUENZAE (A) Reference Detected Not Detected MORAXELLA CATARRHALIS Reference Not Detected Not Detected ACINETOBACTER BAUMANNII COMPLEX Reference Not Detected Not Detected ENTEROBACTER CLOACAE COMPLEX Reference Not Detected Not Detected ESCHERICHIA COLI Reference Not Detected Not Detected KLEBSIELLA (ENTEROBACTER) AEROGENES Reference Not Detected Not Detected KLEBSIELLA OXYTOCA Reference Not Detected Not Detected KLEBSIELLA PNEUMONIAE Reference Not Detected Not Detected PROTEUS SPP Reference Not Detected Not Detected PSEUDOMONAS AERUGINOSA Reference Not Detected Not Detected SERRATIA MARCESCENS Reference Not Detected Not Detected CHLAMYDIA PNEUMONIAE Reference Not Detected Not Detected LEGIONELLA PNEUMOPHILA Reference Not Detected Not Detected MYCOPLASMA PNEUMONIAE Reference Not Detected Not Detected ADENOVIRUS Reference Not Detected Not Detected CORONAVIRUS Reference Not Detected Not Detected HUMAN METAPNEUMOVIRUS Reference Not Detected Not Detected HUMAN RHINOVIRUS/ENTEROVIRU S (A) Reference Detected Not Detected INFLUENZA A Reference Not Detected Not Detected INFLUENZA B Reference Not Detected Not Detected PARAINFLUENZA VIRUS Reference Not Detected Not Detected RESPIRATORY SYNCYTIAL VIRUS Reference Not Detected Not Detected ORDER COMMENTS: Methodology: Multiplex PCR This panel does not test for SARS-CoV-2 (Covid-19). The following antimicrobial resistance gene is reported if the appropriate organism is detected: mecA. The following antimicrobial resistance genes are reported if detected and the appropriate organisms are detected: CTX-M, IMP, KPC, NDM, OXA-48-like, and VIM. Normal [facility] Comment on above: Performed By: #### L [id number] ####Supervisor [employer]: ELODIA CONTRERAS ([id number])[facility] ([address] Progress Noteon 08-04-2024 Progress Note - Attestation signed by Jocelyn Tian PT at 08/04/2024 1:18 PM I certify that I was present during the entire session and guided the care given by the Student Physical Therapist. Cosign: Jocelyn Tian PT PHYSICAL THERAPY [facility] Initial Evaluation Name/MRN: Emily Peralta ([id number]) Evaluation Date: 08/04/2024 Date of : 1940 Admission Date: 08/03/2024 4:21 PM Age: 83 y.o. Room/Bed: [facility]243/[facility] B Discharge Recommendation: [facility] Equipment Needed: No Assessment IMPRESSION: Pt is a 83 y.o. female admitted to the ED 08/03 for SOB and COPD exacerbation. Pt was in a SNF receiving assistance for bathing and chair follow for ambulation with FWW prior to admittance. Pt is currently SBA supine to sit with max verbal cues, Mod A sit to stand, Min A side stepping to the left, and Mod A sit to supine with assist to swing BLE into bed. Pt is limited by pain, fatigue, and endurance. Pt would benefit from acute PT treatment until discharge to address these deficits. Recommend SNF. Admitting Diagnosis: SOB and COPD exacerbation Prognosis: fair Performance Deficits /Impairments: Increased Pain, Decreased Functional Mobility, Decreased Strength, Decreased Safety Awareness, Decreased Endurance, and Decreased Balance Decision Making: Medium Complexity Subjective Pt was agreeable to therapy Okayed for therapy per RN Pain: 0-10 pain scale: 7/10 Location: shoulder and knee Past Medical History: Medical History[1] Past Surgical History: Surgical History[2] Admission Diagnosis: Patient Active Problem List Diagnosis Date Noted COPD exacerbation (HCC) 08/03/2024 Medical Precautions: Droplet Proper PPE donned/doffed in accordance with facility standards. Fall Risk: Sotomayor Fall Risk Score: 35 (Low Risk) Sotomayor Fall Risk Score: 35 (Medium Risk) Precautions/Restricti ons: Lines/Drains/Airways: 15 L NC Family/Caregiver Present: none Overall Cognitive Status: Exceptions - Following commands: follows one step commands with increased time and follows one step commands with repetition - Problem solving: assistance required to identify errors made and assistance required to correct errors made - Initiation: requires cues for all - Sequencing: requires cues for all Overall Orientation Status: Oriented to Place, Oriented to Person, Disoriented to Situation, and Disoriented to Time Pt able to state she is here because she could not breath. Vision: Not Assessed Hearing: normal Social/Functional History Patient admitted from SNF. Assistive Equipment: front wheeled walker Pt requires assistance for bathing and chair follow for ambulation with FWW. Not able to obtain full social/functional history due to increased agitation with questioning. Prior Level of Function Prior Level of ADL Function: Required Assist Prior Level of Mobility: Required Assist; Device: Front wheeled walker with chair follow Prior Level of Transfers: Required Assist Not able to obtain full PLOF due to increased agitation with questioning. Objective Lower Extremity Assessment AROM: WFL Strength: Exceptions: decreased strength with functional mobility Balance: Balance During Session: Posture: fair Sitting - Static: SBA Sitting - Dynamic: Contact Guard Standing - Static: Min Assist Standing - Dynamic: Mod Assist Pt is Mod A for dynamic standing balance due to fatigue and endurance. Bed Mobility: Supine to sit: SBA Sit to supine: Mod Assist Pt is SBA for supine to sit however required Max verbal cues for sequencing, initiation, and hand placement. Pt is Mod A for sit to supine with assistance from SPT to swing BLE into bed. Transfers Sit to stand: Mod Assist Stand to sit: Mod Assist Side step: Min Assist Pt is a Mod A for sit <> stand from EOB with FWW. Verbal cues provided for sequencing, hand placement, and upright posture. Pt is Min A for side step x3 to the left. Verbal cues provided for sequencing of steps with FWW. Ambulation Did not assess this session. Vitals: Pt on 15 L NC. Repeatedly checked O2 throughout session. Pt rested at 92%. 89% after taking lateral steps from EOB. Came back up to 92% within 1-2 minutes seated/supine. Outcome Measures AM-PAC How much HELP from another person do you currently need Turning from your back to your side while in a flat bed without using bedrails?: A Little Moving from lying on your back to sitting on the side of a flat bed without using bedrails?: A Little Moving to and from a bed to a chair (including a wheelchair)?: A Lot Standing up from a chair using your arms (wheelchair or bedside chair)?: A Lot Walking in a hospital room?: A Lot Stair climbing assess (more content not included)... Normal [facility] RESPIRATORY CULTURE AND STAI Non 08-04-2024 RESPIRATORY CULTURE AND STAIN RESPIRATORY CULTURE Reference Moderate respiratory suri present. HAEMOPHILUS INFLUENZAE Many Haemophilus influenzae (A) BETA LACTAMASE Reference Negative GRAM STAIN RESULT (A) Reference (A) Few Epithelial cells per low power field Moderate Polymorphonuclear leukocytes per low power field Few Gram positive cocci Few Gram negative bacilli Few Gram negative coccobacilli [ S = SUSCEPTIBLE R = RESISTANT I = INTERMEDIATE S-DD = Susceptible-dose dependent NS = Non-susceptible NO = No Interpretation ] Normal [facility] Comment on above: Performed By: #### L [id number] #### Supervisor [employer]: ELODIA CONTRERAS ([id number]) [facility]) [address] [place] [address] RESPIRATORY PATHOGENS PANEL BY PCRon 08-04-2024 RESPIRATORY PATHOGENS PANEL BY PCR SARS-COV-2 Reference Not Detected Not Detected ADENOVIRUS Reference Not Detected Not Detected CORONAVIRUS HKU1 Reference Not Detected Not Detected CORONAVIRUS NL63 Reference Not Detected Not Detected CORONAVIRUS 229E Reference Not Detected Not Detected CORONAVIRUS OC43 Reference Not Detected Not Detected HUMAN METAPNEUMOVIRUS Reference Not Detected Not Detected HUMAN RHINOVIRUS/ENTEROVIRU S Reference Not Detected Not Detected INFLUENZA A Reference Not Detected Not Detected INFLUENZA B Reference Not Detected Not Detected PARAINFLUENZA 1 Reference Not Detected Not Detected PARAINFLUENZA 2 Reference Not Detected Not Detected PARAINFLUENZA 3 Reference Not Detected Not Detected PARAINFLUENZA 4 Reference Not Detected Not Detected RESPIRATORY SYNCYTIAL VIRUS Reference Not Detected Not Detected BORDETELLA PERTUSSIS Reference Not Detected Not Detected BORDETELLA PARAPERTUSSIS Reference Not Detected Not Detected CHLAMYDIA PNEUMONIAE Reference Not Detected Not Detected MYCOPLASMA PNEUMONIAE Reference Not Detected Not Detected ORDER COMMENTS: Methodology: Multiplex PCR Normal [facility] Comment on above: Performed By: #### L [id number] ####Supervisor [employer]: ELODIA CONTRERAS ([id number])[facility] ([facility])[address] [place] [address] Respiratory pathogens DNA an d RNA panel LYDIA+non-probe (Lower resp)Ordered By: Kalli Mari on 08-04-2024 Acinetobacter baumannii complex Not detected Not Detected [facility] Adenovirus Not detected Not Detected [facility] Chlamydia pneumoniae Not detected Not Detected [facility] Enterobacter cloacae complex Not detected Not Detected [facility] Escherichia coli Not detected Not Detected [facility] FLUAV RNA LYDIA+non-probe Ql (Lower resp) Not detected Not Detected [facility] FLUBV RNA LYDIA+non-probe Ql (Lower resp) Not detected Not Detected [facility] Haemophilus influenzae Detected Abnormal Not Detected [facility] Human Metapneumovirus Not detected Not Detected [facility] Human Rhinovirus/Enterovirus Detected Abnormal Not Detected [facility] Interpretation and review of laboratory results Abnormal [facility] Klebsiella (Enterobacter) aerogenes Not detected Not Detected [facility] Klebsiella oxytoca Not detected Not Detected [facility] Klebsiella pneumoniae Not detected Not Detected [facility] Legionella pneumophila Not detected Not Detected [facility] Moraxella catarrhalis Not detected Not Detected [facility] Mycoplasma pneumoniae Not detected Not Detected [facility] Parainfluenza virus Not detected Not Detected [facility] Proteus spp Not detected Not Detected [facility] Pseudomonas aeruginosa Not detected Not Detected [facility] RSV RNA LYDIA+probe Ql (Resp) Not detected Not Detected [facility] S. agalactiae Org specific cx Ql (Vag fld) Not detected Not Detected [facility] SARS-CoV-2 (COVID-19) RNA LYDIA+non-probe Ql (Nph) Not detected Not Detected [facility] SARS-CoV-2 (COVID-19) RNA LYDIA+probe Ql (Unsp spec) Methodology: Multiplex PCR This panel does not test for SARS-CoV-2 (Covid-19). The following antimicrobial resistance gene is reported if the appropriate organism is detected: mecA. The following antimicrobial resistance genes are reported if detected and the appropriate organisms are detected: CTX-M, IMP, KPC, NDM, OXA-48-like, and VIM. [facility] Serratia marcescens Not detected Not Detected [facility] Staphylococcus aureus Not detected Not Detected [facility] Streptococcus pneumoniae Not detected Not Detected [facility] Streptococcus pyogenes Not detected Not Detected [facility] Respiratory pathogens DNA an d RNA panel LYDIA+non-probe (Nph)on 08-04-2024 Adenovirus Not detected Not Detected [facility] B. pertussis DNA LYDIA+probe Ql (Unsp spec) Not detected Not Detected [facility] Bordetella parapertussis Not detected Not Detected [facility] Chlamydia pneumoniae Not detected Not Detected [facility] Coronavirus 229E Not detected Not Detected [facility] Coronavirus HKU1 Not detected Not Detected [facility] Coronavirus NL63 Not detected Not Detected [facility] Coronavirus OC43 Not detected Not Detected [facility] FLUAV RNA LYDIA+non-probe Ql (Nph) Not detected Not Detected [facility] FLUBV RNA LYDIA+non-probe Ql (Nph) Not detected Not Detected [facility] Human Metapneumovirus Not detected Not Detected [facility] Human Rhinovirus/Enterovirus Not detected Not Detected [facility] Interpretation and review of laboratory results Normal [facility] Mycoplasma pneumoniae Not detected Not Detected [facility] Parainfluenza 1 Not detected Not Detected [facility] Parainfluenza 2 Not detected Not Detected [facility] Parainfluenza 3 Not detected Not Detected [facility] Parainfluenza 4 Not detected Not Detected [facility] Respiratory Syncytial Virus Not detected Not Detected [facility] SARS-CoV-2 (COVID-19) RNA LYIDA+non-probe Ql (Nph) Not detected Not Detected [facility] Methodology: Multiplex PCR [facility] Vital signsOrdered By: Sharda Chacon on 08-04-2024 Oxygen saturation in Venous blood 87.9 % [facility] CBC W Auto Differential pane l (Bld)Ordered By: Ivana Nava on 08-03-2024 Erythrocyte distribution width (RBC) [Ratio] 14.1 % 11.5 - 15.0 % [facility] Hematocrit (Bld) [Volume fraction] 41.5 % 35.0 - 47.0 % [facility] Hemoglobin (Bld) [Mass/Vol] 13.2 g/dL 11.7 - 16.0 g/dL [facility] Interpretation and review of laboratory results Abnormal [facility] MCH (RBC) [Entitic mass] 28.9 pg 26. 0 - 34.0 pg [facility] MCHC (RBC) [Mass/Vol] 31.8 % 30.5 - 36.0 % [facility] MCV (RBC) [Entitic vol] 90.8 fL 77.0 - 99.0 fL [facility] Platelet mean volume (Bld) [Entitic vol] 9.7 fL 9.0 - 12.7 fL [facility] Platelets (Bld) [#/Vol] 141 10*3/uL 140 - 440 10*3/uL [facility] RBC (Bld) [#/Vol] 4.57 10*6/uL 3.80 - 5.2 0 10*6/uL [facility] WBC (Bld) [#/Vol] 11.7 10*3/uL High 3.6 - 10.7 10*3/uL [facility] CBC WITH AUTO DIFFERENTIALon 08-03-2024 Erythrocyte distribution width (RBC) [Ratio] 14.1 % Normal 11.5-15.0 [facility] Comment on above: Performed By: #### L [id number], [id number] ####[employer]: JOHAN BHANDARI ([id number])[facility]ITALSujata [facility]REZW[facility] ([facility])[address] [place] [address] Hematocrit (Bld) [Volume fraction] 41.5 % Normal 35.0-47.0 [facility] Comment on above: Performed By: #### L [id number], [id number] ####[employer]: JOHAN BHANDARI ([id number])[facility] ([facility])[address] [place] [address] Hemoglobin (Bld) [Mass/Vol] 13.2 g/dL Normal 11.7-16.0 [facility] Comment on above: Performed By: #### L [id number], [id number] ####[employer]: JOHAN BHANDARI ([id number])[facility] ([facility])[address] [place] [address] MCH (RBC) [Entitic mass] 28.9 pg Normal 26.0-34.0 [facility] Comment on above: Performed By: #### L [id number], [id number] ####[employer]: JOHAN BHANDARI ([id number])[facility] ([facility])[address] [place] [address] MCHC 31.8 % Normal 30.5-36.0 [facility] Comment on above: Performed By: #### L [id number], [id number] ####[employer]: JOHAN BHANDARI ([id number])[facility] ([facility])[address] [place] [address] MCV (RBC) [Entitic vol] 90.8 fL Normal 77.0-99.0 [facility] Comment on above: Performed By: #### L [id number], [id number] ####[employer]: JOHAN BHANDARI ([id number])[facility]ITALSujata MIR[facility]DA ([facility])[address] Platelet mean volume (Bld) [Entitic vol] 9.7 fL Normal 9.0-12.7 [facility] Comment on above: Performed By: #### L [id number], [id number] ####[employer]: JOHAN BHANDARI ([id number])[facility]ITALSujata [place] ([facility])[address] Platelets (Bld) [#/Vol] 141 10*3/uL Normal 140-440 [facility] Comment on above: Performed By: #### L [id number], [id number] ####[employer]: JOHAN BHANDARI ([id number])[facility]PITALSujata [facility]ZW[facility] ([facility])[address] RBC (Bld) [#/Vol] 4.57 10*6/uL Normal 3.80-5.20 [facility] Comment on above: Performed By: #### L [id number], [id number] ####[employer]: JOHAN BHANDARI ([id number])[facility] ([facility])[address] WBC (Bld) [#/Vol] 11.7 10*3/uL High 3.6-10.7 [facility] Comment on above: Performed By: #### L [id number], [id number] ####[employer]: JOHAN BHANDARI ([id number])[facility] ([facility])[address] COMPREHENSIVE METABOLIC PANE Alex 08-03-2024 Albumin [Mass/Vol] 3.0 g/dL Low 3.4-4.8 [facility] Comment on above: Performed By: #### L [id number] #### [employer]: ELODIA CONTRERAS ([id number]) [facility] ([facility]) [address] [place] [address] ALP [Catalytic activity/Vol] 85 U/L Normal 40-150 [facility] Comment on above: Performed By: #### L [id number] #### [employer]: ELODIA CONTRERAS ([id number]) [facility] ([facility]) [address] [place] [address] ALT [Catalytic activity/Vol] U/L Normal <30 [facility] Comment on above: Performed By: #### L [id number] #### [employer]: ELODIA CONTRERAS ([id number]) [facility] ([facility]) [address] [place] [address] Anion gap [Moles/Vol] 11 mmol/L Normal 3-13 [facility] Comment on above: Performed By: #### L [id number] #### [employer]: ELODIA CONTRERAS ([id number]) [facility] ([facility]) [address] [place] [address] AST [Catalytic activity/Vol] 17 U/L Normal <34 [facility] Comment on above: Performed By: #### L [id number] #### [employer]: ELODIA CONTRERAS ([id number]) [facility] ([facility]) [address] [place] [address] Bilirubin [Mass/Vol] 0.8 mg/dL Normal <1.2 [facility] Comment on above: Performed By: #### L [id number] #### [employer]: ELODIA CONTRERAS ([id number]) [facility] ([facility]) [address] [place] [address] Calcium [Mass/Vol] 9.7 mg/dL Normal 8.8-10.0 [facility] Comment on above: Performed By: #### L [id number] #### [employer]: ELODIA CONTRERAS ([id number]) [facility] ([facility]) [address] [place] [address] [place] Chloride [Moles/Vol] 96 mmol/L Low 98-107 [facility] Comment on above: Performed By: #### L [id number] #### [employer]: ELODIA CONTRERAS ([id number]) [facility] ([facility]) [address] [place] [address] [place] CO2 [Moles/Vol] 29 mmol/L Normal 23-31 [facility] Comment on above: Performed By: #### L [id number] #### [employer]: ELODIA CONTRERAS ([id number]) [facility] ([facility]) [address] [place] [address] Creatinine [Mass/Vol] 0.79 mg/dL Normal 0.57-1.11 [facility] Comment on above: Performed By: #### L [id number] #### [employer]: ELODIA CONTRERAS ([id number]) [facility] ([facility]) [address] [place] [address] [place] GLOMERULAR FILTRATION RATE ML/MIN/1.73 SQ M.PREDICTED 73.4 mL/min/1.73m*2 Normal >60.0 [facility] Comment on above: Result Comment: Calc ulation based on the Chronic Kidney Disease Epidemiology Collaboration (CKD-EPI) equation refit without adjustment for race Performed By: #### L [id number] #### [employer]: ELODIA CONTRERAS ([id number]) [facility] ([facility]) [address] [place] [address] [place] Glucose [Mass/Vol] 90 mg/dL Normal 82-115 [facility] Comment on above: Performed By: #### L [id number] #### [employer]: ELODIA CONTRERAS ([id number]) [facility]) [address] [place] [address] [place] Potassium [Moles/Vol] 4.0 mmol/L Normal 3.5-5.1 [facility] Comment on above: Result Comment: [facility] potassium values may be up to 0.5 mmol/L lower than serum values. Performed By: #### L [id number] #### [employer]: ELODIA CONTRERAS ([id number]) [facility]) [address] [place] [address] Protein [Mass/Vol] 7.7 g/dL Normal 6.4-8.3 [facility] Comment on above: Performed By: #### L [id number] #### [employer]: ELODIA CONTRERAS ([id number]) [facility] [address] [place] [address] Sodium [Moles/Vol] 136 mmol/L Normal 136-145 [facility] Comment on above: Performed By: #### L [id number] #### [employer]: ELODIA CONTRERAS ([id number]) [facility] ([facility]) [address] [place] [address] Urea nitrogen [Mass/Vol] 13 mg/dL Normal 9-23 [facility] Comment on above: Performed By: #### L [id number] #### [employer]: ELODIA CONTRERAS ([id number]) [facility] ([facility]) [address] [place] [address] Comprehensive metabolic 1998 panelon 08-03-2024 Albumin [Mass/Vol] 3 g/dL Low 3.4 - 4.8 g/dL [facility] ALP [Catalytic activity/Vol] 85 U/L 40 - 150 U/L [facility] ALT [Catalytic activity/Vol] U/L NINF - 30 U/L [facility] Anion gap [Moles/Vol] 11 mmol/L 3 - 13 mmol/L [facility] AST [Catalytic activity/Vol] 17 U/L NINF - 34 U/L [facility] Bilirubin [Mass/Vol] 0.8 mg/dL NINF - 1.2 mg/dL [facility] Calcium [Mass/Vol] 9.7 mg/dL 8.8 - 10. 0 mg/dL [facility] Chloride [Moles/Vol] 96 mmol/L Low 98 - 10 7 mmol/L [facility] CO2 [Moles/Vol] 29 mmol/L 23 - 31 mmol/L [facility] Creatinine [Mass/Vol] 0.79 mg/dL 0.57 - 1.11 mg/dL [facility] GFR/1.73 sq M.predicted (S/P/Bld) [Vol rate/Area] 73.4 mL/min - PINF [facility] Comment on above: Calculation based on the Chronic Kidney Disease Epidemiology Collaboration (CKD-EPI) equation refit without adjustment for race Glucose [Mass/Vol] 90 mg/dL 82 - 115 mg/dL [facility] Interpretation and review of laboratory results Abnormal [facility] Potassium [Moles/Vol] 4 mmol/L 3.5 - 5.1 mmol/L [facility] Comment on above: Plasma potassium gustavo ues may be up to 0.5 mmol/L lower than serum values. Protein [Mass/Vol] 7.7 g/dL 6.4 - 8.3 g/dL [facility] Sodium [Moles/Vol] 136 mmol/L 136 - 145 mmol/L [facility] Urea nitrogen [Mass/Vol] 13 mg/dL 9 - 23 mg/dL [facility] ECG 12-LEADon 08-03-2024 ECG 12-LEAD IMPRESSION: Sinus rhythm Nonspecific IVCD with LAD LVH with secondary repolarization abnormality Anterior Q waves, possibly due to LVH Electronically Signed On 08-03-2024 17:43:39 EDT by Khari Souza [facility] ED Nursing Noteon 08-03-2024 ED Nursing Note Patient was placed o n a Venti mask at 50% FiO2. Normal [facility] ED Nursing Note Patient arrives from SNF via EMS due to SOB and low pulse oximetry readings. Ems reports the capnography was in the 50's for CO2 level. The SNF was trying all day to get the patient to agree to come to the ED for evaluation and she refused. Patient finally agrees but refused the EMS BiPap. [facility] ED Provider Noteon ED Provider Note EMERGENCY DEPARTMENT ENCOUNTER Pt Name: Emily Peralta Birthdate 1940 Date of evaluation: 08/03/2024 ED Provider: Stacia Juarez DO CHIEF COMPLAINT Chief Complaint Patient presents with Shortness of Breath HISTORY OF PRESENT ILLNESS (Location/Symptom, Timing/Onset, Context/Setting, Quality, Duration, Modifying Factors, Severity) Note limiting factors. I wore appropriate PPE for the entirety of this encounter. HPI Emily Peralta is a 83 y.o. who presents to the emergency department with chief complaint of shortness of breath. Patient sent to the ED by her nursing facility due to their concerns for shortness of breath. She also has a productive cough. Patient reports that her symptoms are chronic due to COPD. She does not wear oxygen at baseline. States that she did not want to come to the ER today. She denies chest pain, leg swelling or other new symptoms. Nursing Notes were reviewed. Limitations to history: None Outside historians: Family REVIEW OF SYSTEMS Review of Systems Pertinent positives and negatives as per HPI. PAST MEDICAL HISTORY Medical History[1] SURGICAL HISTORY Surgical History[2] CURRENT MEDICATIONS Previous Medications No medications on file ALLERGIES Aspartame, Codeine, Lorazepam, Oxycodone, and Wound dressing adhesive FAMILY HISTORY Family History[3] SOCIAL HISTORY Social History[4] SCREENINGS PHYSICAL EXAM ED Triage Vitals Temp Heart Rate Resp BP 08/03/24 1630 08/03/24 1630 08/03/24 1630 08/03/24 1630 36.4 ?C (97.5 ?F) 87 (!) 36 122/69 SpO2 Temp Source Heart Rate Source Patient Position 08/03/24 1630 08/03/24 1630 08/03/24 1630 08/03/24 1630 (!) 75 % Oral Monitor Sitting BP Location FiO2 (%) 08/03/24 1630 08/03/24 1706 Right arm 100 % Physical Exam Vitals and nursing note reviewed. Constitutional: General: She is not in acute distress. Appearance: She is well-developed. She is ill-appearing. She is not toxic-appearing. HENT: Head: Normocephalic and atraumatic. Nose: Nose normal. Eyes: Extraocular Movements: Extraocular movements intact. Neck: Vascular: No JVD. Cardiovascular: Rate and Rhythm: Normal rate and regular rhythm. Pulses: Normal pulses. Heart sounds: Normal heart sounds. Pulmonary: Effort: Tachypnea and accessory muscle usage present. No respiratory distress. Breath sounds: Decreased breath sounds and wheezing present. Abdominal: Palpations: Abdomen is soft. Tenderness: There is no abdominal tenderness. Musculoskeletal: General: Normal range of motion. Cervical back: Normal range of motion and neck supple. Right lower leg: No tenderness. No edema. Left lower leg: No tenderness. No edema. Skin: General: Skin is warm and dry. Capillary Refill: Capillary refill takes less than 2 seconds. Neurological: General: No focal deficit present. Mental Status: She is alert. Mental status is at baseline. She is disoriented. DIAGNOSTIC RESULTS Procedures/EKG: EKG was reviewed by myself. Physician EKG interpretation can be found in [facility] RADIOLOGY (Per Emergency Physician): Interpretation per the Radiologist below, if available at the time of this note: XR chest 1 view Final Result ED BEDSIDE ULTRASOUND: Performed by ED Physician - none LABS: Labs Reviewed CBC WITH AUTO DIFFERENTIAL - Abnormal Result Value Auto WBC 11.7 (*) RBC 4.57 Hemoglobin 13.2 Hematocrit 41.5 MCV 90.8 MCH 28.9 MCHC 31.8 RDW 14.1 Platelets 141 MPV 9.7 COMPREHENSIVE METABOLIC PANEL - Abnormal SODIUM 136 POTASSIUM 4.0 CHLORIDE 96 (*) CARBON DIOXIDE 29 ANION GAP 11 UREA NITROGEN 13 CREATININE 0.79 GLUCOSE 90 CALCIUM 9.7 AST (SGOT) 17 ALT <6 ALKALINE PHOSPHATASE 85 ALBUMIN 3.0 (*) BILIRUBIN, TOTAL 0.8 TOTAL PROTEIN 7.7 eGFR 73.4 NT PRO BNP - Abnormal NT PRO BNP 890 (*) MANUAL DIFFERENTIAL (CELLAVISION) - Abnormal RBC Morphology abnormal Ovalocytes Rare (*) Stomatocytes Slight (*) Giant PLTs Rare (*) Neutrophils % 82 Bands % 2 (*) Lymphocytes % 9 (*) Monocytes % 6 Myelocytes % 1 (*) Absolute Neutrophil Count 9.8 (*) Bands Absolute 0.2 (*) Lymphocytes Absolute 1.1 Monocytes Absolute 0.7 Myelocytes Absolute 0.1 (*) Neutrophils Manual 83 Lymphocytes Manual 9 Monocytes Manual 6 Eosinophils Manual Basophils Manual Bands Manual 2 Metamyelocytes Manual Myelocytes Manual 1 Promyelocytes Manual Blasts Manual Atypical Lymphocytes Manual Unclassified Cells, Manual HIGH SENSITIVITY TROPONIN, SERIAL BASELINE - Normal Troponin HS Serial Baseline 3 HIGH SENSITIVITY TROPONIN, SERIAL, SECOND TEST - Normal 2h Troponin HS (Serial 2nd Troponin) 4 All other labs were within normal range or not returned as of this dictation. EMERGENCY DEPARTMENT COURSE and DIFFERENTIAL DIAGNOSIS/MDM: Vitals: Vitals: 08/03/24 1630 08/03/24 1715 08/03/24 1730 08/03/24 1742 BP: 122/69 124/58 BP Location: Right arm (more content not included)... Normal [facility] HIGH SENSITIVITY TROPONIN, S ERIAL BASELINEon 08-03-2024 TROPONIN HS SERIAL BASELINE 3 ng/L Normal <=14 [facility] Comment on above: Result Comment: In i ndividuals presenting with symptoms > 2h, a baseline troponin <= 5 ng/L suggests acute cardiac injury is unlikely and further serial testing is generally not indicated. Performed By: #### L [id number], [id number], [id number] #### [employer]: JOHAN BHANDARI ([id number]) [facility] ([facility]) [address] HIGH SENSITIVITY TROPONIN, S SARITA, SECOND TESTon 08-03-2024 2H TROPONIN HS (SERIAL 2ND TROPONIN) 4 ng/L Normal <=14 [facility] Comment on above: Result Comment: Risi ng or falling troponin delta below 2 ng/L as compared to baseline value suggests that acute cardiac injury is unlikely. Performed By: #### L [id number] ####[employer]: JOHAN BHANDARI ([id number])[facility] ([facility])[address] Laboratory - Hematology and Cell countson 08-03-2024 Band form neutrophils (Bld) [#/Vol] 0.2 10*3/uL High NINF - 0.0 10*3/uL [facility] Band form neutrophils/100 WBC (Bld) 2 % High NINF - 0 % [facility] Giant platelets LM Ql (Bld) Rare Abnormal (none) [facility] Lymphocytes (Bld) [#/Vol] 1.1 10*3/uL 1.0 - 4.3 10*3/uL [facility] Lymphocytes/100 WBC (Bld) 9 % Low 15 - 45 % [facility] Monocytes (Bld) [#/Vol] 0.7 10*3/uL 0.0 - 0.9 10*3/uL [facility] Monocytes/100 WBC (Bld) 6 % 5 - 13 % [facility] Myelocytes (Bld) [#/Vol] 0.1 10*3/uL High KRYSTIN F - 0.0 10*3/uL [facility] Myelocytes/100 WBC (Bld) 1 % High NINF - 0 % [facility] Neutrophils (Bld) [#/Vol] 9.8 10*3/uL High 1.8 - 7.5 10*3/uL [facility] Ovalocytes LM Ql (Bld) Rare Abnormal (none) [facility] RBC morphology finding Nom (Bld) abnormal [facility] Segmented neutrophils/100 WBC (Bld) 82 % 38 - 82 % [facility] Stomatocytes LM Ql (Bld) Slight Abnormal (none) [facility] MANUAL DIFFERENTIAL (CELLAVI ASHLIE)on 08-03-2024 BAND NEUTROPHILS TOTAL PER COUNTED LEUKOCYTES BY MANUAL COUNT 2 Normal [facility] Comment on above: Performed By: #### L [id number], [id number] ####[employer]: JOHAN BHANDARI ([id number])[facility] ([facility])[address] BANDS (10*3/UL) IN BLOOD-CELLAVISION 0.2 10*3/uL High <=0.0 [facility] Comment on above: Performed By: #### L [id number], [id number] ####[employer]: JOHAN BHANDARI ([id number])[facility] [place] ([facility])[address] [place] [address] [place] BASOPHILS TOTAL PER COUNTED LEUKOCYTES BY MANUAL COUNT Normal [facility] Comment on above: Performed By: #### L [id number], [id number] ####[employer]: JOHAN BHANDARI ([id number])[facility] [place] ([facility])[address] [place] [address] [place] BLASTS TOTAL PER COUNTED LEUKOCYTES BY MANUAL COUNT Normal [facility] Comment on above: Performed By: #### L [id number], [id number] ####[employer]: JOHAN BHANDARI ([id number])[facility] [place] ([facility])[address] [place] [address] [place] EOSINOPHILS TOTAL PER COUNTED LEUKOCYTES BY MANUAL COUNT Normal [facility] Comment on above: Performed By: #### L [id number], [id number] ####[employer]: JOHAN BHANDARI ([id number])[facility] [place] ([facility])[address] [place] [address] [place] LYMPHOCYTES (10*3/UL) IN BLOOD-CELLAVISION 1.1 10*3/uL Normal 1.0-4.3 [facility] Comment on above: Performed By: #### L [id number], [id number] ####[employer]: JOHAN BHANDARI ([id number])[facility] ([facility])[address] [place] [address] [place] LYMPHOCYTES TOTAL PER COUNTED LEUKOCYTES BY MANUAL COUNT 9 Normal [facility] Comment on above: Performed By: #### L [id number], [id number] ####[employer]: JOHAN BHANDARI ([id number])[facility] ([facility])[address] [place] [address] [place] LYMPHOCYTES/100 LEUKOCYTES IN BLOOD-CELLAVISION 9 % Low 15-45 [facility] Comment on above: Performed By: #### L [id number], [id number] ####[employer]: JOHAN DILLONCER ([phone])[facility] ([facility])[address] METAMYELOCYTES TOTAL PER COUNTED LEUKOCYTES BY MANUAL COUNT Normal [facility] Comment on above: Performed By: #### L [id number], [id number] ####[employer]: JOHAN DILLONCER ([id number])[facility] ([facility])[address] [place] [address] [place] MONOCYTES (10*3/UL) IN BLOOD-CELLAVISION 0.7 10*3/uL Normal 0.0-0.9 [facility] Comment on above: Performed By: #### L [id number], [id number] ####[employer]: JOHAN BHANDARI ([id number])[facility] ([facility])[address] [place] [address] [place] MONOCYTES TOTAL PER COUNTED LEUKOCYTES BY MANUAL COUNT 6 Normal [facility] Comment on above: Performed By: #### L [id number], [id number] ####[employer]: JOHAN DILLONCER ([id number])[facility] [place] [facility] [place] [address] [place] MONOCYTES/100 LEUKOCYTES IN BLOOD-LOLY 6 % Normal 5-13 [facility] Comment on above: Performed By: #### L [id number], [id number] ####[employer]: JOHAN DILLONCER ([id number])[facility] [place] [facility] [place] [address] [place] MYELOCYTES (10*3/UL) IN BLOOD-CELLAVISION 0.1 10*3/uL High <=0.0 [facility] Comment on above: Performed By: #### L [id number], [id number] ####[employer]: JOHAN BHANDARI ([id number])[facility] ([facility])[address] [place] [address] [place] MYELOCYTES COUNTED BY MANUAL COUNT 1 Normal [facility] Comment on above: Performed By: #### L [id number], [id number] ####[employer]: JOHAN BHANDARI ([id number])[facility] ([facility])[address] [place] [address] [place] MYELOCYTES/100 LEUKOCYTES IN BLOOD-CELLAVISION 1 % High <=0 [facility] Comment on above: Performed By: #### L [id number], [id number] ####[employer]: JOHAN BHANDARI ([id number])[facility] ([facility])[address] [place] [address] [place] NEUTROPHILS BAND FORM/100 LEUKOCYTES IN BLOOD-CELLAVISI 2 % High <=0 [facility] Comment on above: Performed By: #### L [id number], [id number] ####[employer]: JOHAN BHANDARI ([id number])[facility] ([facility])[address] [place] [address] [place] NEUTROPHILS TOTAL PER COUNTED LEUKOCYTES BY MANUAL COUNT 83 Normal [facility] Comment on above: Performed By: #### L [id number], [id number] ####[employer]: JOHAN BHANDARI ([id number])[facility] ([facility])[address] [place] [address] [place] OVALOCYTES PRESENCE IN BLOOD BY LIGHT MICROSCOPY Rare Abnormal (none) [facility] Comment on above: Performed By: #### L [id number], [id number] ####[employer]: JOHAN BHANDARI ([id number])[facility] ([facility])[address] [place] [address] [place] PLATELETS GIANT PRESENCE IN BLOOD BY LIGHT MICROSCOPY Rare Abnormal (none) [facility] Comment on above: Performed By: #### L [id number], [id number] ####[employer]: JOHAN BHANDARI ([id number])[facility] [place] [facility] [place] [address] [place] PROMYELOCYTES TOTAL PER COUNTED LEUKOCYTES BY MANUAL COUNT Normal [facility] Comment on above: Performed By: #### L [id number], [id number] ####[employer]: JOHAN BHANDARI ([id number])[facility] [place] ([facility] [place] [address] [place] RBC MORPHOLOGY IN BLOOD abnormal Normal S [facility] Comment on above: Performed By: #### L [id number], [id number] ####[employer]: JOHAN BHANDARI ([id number])[facility] [place] ([facility] [place] [address] [place] SEGMENTED NEUTROPHILS (10*3/UL) IN BLOOD-CELLAVISION 9.8 10*3/uL High 1.8-7.5 [facility] Comment on above: Performed By: #### L [id number], [id number] ####[employer]: JOHAN BHANDARI ([id number])[facility] [place] ([facility] [place] [address] [place] SEGMENTED NEUTROPHILS/100 LEUKOCYTES-CE 82 % Normal 38-82 [facility] Comment on above: Performed By: #### L [id number], [id number] ####[employer]: JOHAN BHANDARI ([id number])[facility] [place] ([facility] [place] [address] [place] STOMATOCYTES IN BLOOD BY LIGHT MICROSCOPY Slight Abnormal (none) [facility] Comment on above: Performed By: #### L [id number], [id number] ####[employer]: JOHAN BHANDARI ([id number])[facility] [place] ([facility])[address] [place] [address] [place] UNCLASSIFIED CELLS TOTAL PER COUNTED LEUKOCYTES BY MANUAL COUNT Normal [facility] Comment on above: Performed By: #### L [id number], [id number] ####[employer]: JOHAN BHANDARI ([id number])[facility] (SB[facility])[address] VARIANT LYMPHOCYTES TOTAL PER COUNTED LEUKOCYTES BY MANUAL COUNT Normal [facility] Comment on above: Performed By: #### L [id number], [id number] ####[employer]: JOHAN BHANDARI ([id number])[facility] (SBAB)[address] [place] [address] [place] NT PRO BNPon 08-03-2024 Natriuretic peptide B (Bld) [Mass/Vol] 890 pg/mL High <450 [facility] Comment on above: Performed By: #### L [id number], [id number] #### [employer]: JOHAN BHANDARI ([id number]) [facility] [address] [place] [address] [place] Natriuretic peptide B [Mass/ Vol]on 08-03-2024 Interpretation and review of laboratory results Abnormal [facility] Natriuretic peptide B (Bld) [Mass/Vol] 890 pg/mL High NINF - 450 pg/mL [facility] No Panel Informationon 08-03 2h Troponin HS (Serial 2nd Troponin) 4 ng/L NINF - 14 ng/L [facility] Comment on above: Rising or falling tr oponin delta below 2 ng/L as compared to baseline value suggests that acute cardiac injury is unlikely. Interpretation and review of laboratory results Normal [facility] Atypical Lymphocytes Manual [facility] Bands Manual 2 [facility] Basophils Manual [facility] Blasts Manual [facility] Eosinophils Manual [facility] Interpretation and review of laboratory results Abnormal [facility] Lymphocytes Manual 9 [facility] Metamyelocytes Manual [facility] Monocytes Manual 6 [facility] Myelocytes Manual 1 [facility] Neutrophils Manual 83 [facility] Promyelocytes Manual [facility] Unclassified Cells, Manual [facility] Interpretation and review of laboratory results Normal [facility] Troponin HS Serial Baseline 3 ng/L NINF - 14 ng/L [facility] Comment on above: In individuals prese nting with symptoms > 2h, a baseline troponin <= 5 ng/L suggests acute cardiac injury is unlikely and further serial testing is generally not indicated. 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 Anterior Q waves, possibly due to LVH Electronically Signed On 08-03-2024 17:43:39 EDT by Khari Souza [employer] No Panel InformationOrdered By: Khari Souza on 08-03-2024 P Parker 61 degrees [employer] Work Phone: WI Interval 197 ms [employer] Work Phone: QRS Parker -47 degrees [employer] Work Phone: QRSD Interval 124 ms [facility] Work Phone: QT Interval 399 ms [employer] Work Phone: QTC Interval 482 ms [employer] Work Phone: T Wave Parker 82 degrees [employer] Work Phone: [employer] Work Phone: Vital signsOrdered By: Osvaldo Souza on 08-03-2024 Heart rate 88 /min bpm [employer] Work Phone: XR Chest Single viewon 08-03 [facility] 1940 [id number] Exam Date/Time: 08/03/2024 17:38 Procedure: XR CHEST 1 VIEW Ordering Provider: JUAREZ MEJGON Reason For Exam: sob, copd HISTORY: Short of breath COPD Limited exam due to obesity and hypoinflation lungs and portable technique. There appears to be hypoinflation lungs with pulmonary vascular prominence with prominent interstitial markings with small area of infiltrate or atelectasis right lower lobe and possible left lung base. Advanced degenerative joint disease both shoulders Report Dictated on Electronically Signed By: Sterling Tian MD Electronically Signed Date/Time: 08/03/2024 5:43 PM EDT [facility] Sterling Tian MD - 08/03/2024 Patient Name: [facility] 1940 [id number] Exam Date/Time: 08/03/2024 17:38 Procedure: XR CHEST 1 VIEW Ordering Provider: JUAREZ MEJGON Reason For Exam: sob, copd HISTORY: Short of breath COPD Limited exam due to obesity and hypoinflation lungs and portable technique. There appears to be hypoinflation lungs with pulmonary vascular prominence with prominent interstitial markings with small area of infiltrate or atelectasis right lower lobe and possible left lung base. Advanced degenerative joint disease both shoulders Report Dictated on Electronically Signed By: Sterling Tian MD Electronically Signed Date/Time: 08/03/2024 5:43 PM EDT [facility] Radiology Study observation (narrative) [facility] XR Chest Single viewOrdered By: Sterling Tian on 08-03-2024 [facility] Work Phone: Respiratory Cultureon 2024 RESPC Streptococcus pneumoniae Amount Growth 2+ Streptococcus pneumoniae: REACTION Cefotaxime Islt GERMAN <=0.12 S Cefotaxime Islt GERMAN <=0.12 S cefTRIAXone Islt GERMAN <=0.12 S cefTRIAXone Islt GERMAN <=0.12 S Clindamycin Islt GERMAN <=0.25 S Erythromycin Islt GERMAN 2 R levoFLOXacin Islt GERMAN 0.5 S Moxifloxacin Islt GERMAN 0.12 S TMP SMX Islt GERMAN <=10 S Vancomycin Islt GERMAN 0.5 S Penicillin Islt GERMAN <=0.06 S Penicillin Islt GERMAN <=0.06 S Penicillin Islt GERMAN <=0.06 S Normal [facility] Comment on above: Performed By: #### L 500.2500, L100.0500 #### [facility] [address] [place], [address] Urine Cultureon 04-19-2024 URC Escherichia coli Proctor Count >100,000 Escherichia coli: REACTION Ampicillin Islt GERMAN 8 Ampicillin+Sulbac Islt GERMAN 4 S Cefepime Islt GERMAN <=0.12 S cefTRIAXone Islt GERMAN <=0.25 S Ciprofloxacin Islt GERMAN <=0.06 S B-Lactamase Extended Susc Islt NEG Gentamicin Islt GERMAN <=1 S levoFLOXacin Islt GERMAN <=0.12 S Meropenem Islt GERMAN <=0.25 S Nitrofurantoin Islt GERMAN <=16 S Pip+Tazo Islt GERMAN <=4 S TMP SMX Islt GERMAN <=20 S Normal [facility] Comment on above: Performed By: #### L 500.2500, L100.0500 #### [facility] [address] [place], [address] Basic Metabolic Profile (BMP )on 04-18-2024 BUN/CRE 33.2 RATIO High 10-20 [facility] Comment on above: Performed By: #### L 500.2500, L100.0500 #### [facility] [address] [place], [address] CA,Total 9.9 mg/dL Normal 8.5-10.1 [facility] Comment on above: Performed By: #### L 500.2500, L100.0500 #### [facility] [address] [place], [address] Chloride [Moles/Vol] 98 mmol/L Normal 98-107 [facility] Comment on above: Performed By: #### L 500.2500, L100.0500 #### [facility] [address] [place], [address] CO2 [Moles/Vol] 29.0 mmol/L Normal 21.0-32.0 [facility] Comment on above: Performed By: #### L 500.2500, L100.0500 #### [facility] [address] [place], [address] Creatinine [Mass/Vol] 0.72 mg/dL Normal 0.55-1.02 [facility] Comment on above: Result Comment: The validity of the calculated GFR GFRAA in patients over 70 years has not been determined. Clinical correlation is essential. Performed By: #### L 500.2500, L100.0500 #### [facility] [address] [place], [address] ECRCL 52.82 ml/min Normal [facility] Comment on above: Performed By: #### L 500.2500, L100.0500 #### [facility] [address] [place], [address] EST GFR - AA 99 mL/min Normal >60 [facility] Comment on above: Result Comment: Afri can Tajik GFR Calc Performed By: #### L 500.2500, L100.0500 #### [facility] [address] [place], [address] GAP 10 Normal 5-15 [facility] Comment on above: Performed By: #### L 500.2500, L100.0500 #### [facility] [address] [place], [address] GFR/1.73 sq M.predicted among non-blacks MDRD (S/P/Bld) [Vol rate/Area] 82 mL/min/{1.73_m2} Normal >60 [facility] Comment on above: Result Comment: Non- GFR Calc Performed By: #### L 500.2500, L100.0500 #### [facility] [address] [place], [address] Glucose [Mass/Vol] 107 mg/dL High 74-106 [facility] Comment on above: Result Comment: Fast ing Glucose result from 100 to 125 mg/dL suggests IMPAIRED HOMEOSTASIS per A.D.A. criteria. Performed By: #### L 500.2500, L100.0500 #### [facility] [address] [place], [address] Potassium [Moles/Vol] 4.4 mmol/L Normal 3.5-5.1 [facility] Comment on above: Performed By: #### L 500.2500, L100.0500 #### [facility] [address] [place], [address] Sodium [Moles/Vol] 137 mmol/L Normal 136-145 [facility] Comment on above: Performed By: #### L 500.2500, L100.0500 #### [facility] [address] [place], [address] Urea nitrogen [Mass/Vol] 24 mg/dL High 7-18 [facility] Comment on above: Performed By: #### L 500.2500, L100.0500 #### [facility] [address] [place], [address] CBC-Complete Blood Cnt No Di ffon 04-18-2024 PLT TNP Normal 150-450 [facility] Comment on above: Result Comment: [place]les[place]ata tabor note: For this sample, a platelet estimate is provided rather than a platelet count due to platelet clumping. Other parameters associated with this sample are not affected by platelet clumping. If a more accurate platelet count is required, a redraw of the patient will be necessary. ADQ PLT COUNT Performed By: #### L 500.2500, L100.0500 #### [facility] [address] [place], [address] Erythrocyte distribution width (RBC) [Ratio] 14.3 % Normal 11.6-14.6 [facility] Comment on above: Performed By: #### L 500.2500, L100.0500 #### [facility] [address] [place], [address] Hematocrit (Bld) [Volume fraction] 41.9 % Normal 37-47 [facility] Comment on above: Performed By: #### L 500.2500, L100.0500 #### [facility] [address] [place], [address] Hemoglobin (Bld) [Mass/Vol] 13.5 g/dL Normal 12.0-15.0 [facility] Comment on above: Performed By: #### L 500.2500, L100.0500 #### [facility] [address] [place], [address] MCH (RBC) [Entitic mass] 28.2 pg Normal 27.0-32.0 [facility] Comment on above: Performed By: #### L 500.2500, L100.0500 #### [facility] [address] [place], [address] MCHC (RBC) [Mass/Vol] 32.2 g/dL Normal 32-36 [facility] Comment on above: Performed By: #### L 500.2500, L100.0500 #### [facility] [address] [place], [address] MCV (RBC) [Entitic vol] 87.7 fL Normal 81-99 [facility] Comment on above: Performed By: #### L 500.2500, L100.0500 #### [facility] [address] [place], [address] Platelet mean volume (Bld) [Entitic vol] 10.0 fL Normal 6.2-12.0 [facility] Comment on above: Performed By: #### L 500.2500, L100.0500 #### [facility] [address] [place], [address] RBC (Bld) [#/Vol] 4.78 10*6/uL Normal 4.2-5.4 [facility] Comment on above: Performed By: #### L 500.2500, L100.0500 #### [facility] [address] [place], [address] RDW SD 46.3 fl High 35.1-43.9 [facility] Comment on above: Performed By: #### L 500.2500, L100.0500 #### [facility] [address] [place], [address] WBC (Bld) [#/Vol] 8.7 10*3/uL Normal 4.4-11.0 [facility] Comment on above: Performed By: #### L 500.2500, L100.0500 #### [facility] [address] [place], [address] Gram Stainon 04-18-2024 GS Acceptable Specimen? Yes (<25 Epithelial cells per/lpf) Gram Stain 4+ White Blood Cells 3+ Gram positive diplococci No Epithelial cells Normal [facility] Comment on above: Performed By: #### L 500.2500, L100.0500 #### [facility] [address] [place], [address] BNP,B-Type NATRIURETIC PEPTI Savi 04-17-2024 Natriuretic peptide B (Bld) [Mass/Vol] 84.1 pg/mL Normal 0-100 [facility] Comment on above: Performed By: #### L 400.0001, M100.2200 #### [facility] [address] [place], [address] Basic Metabolic Profile (BMP )on 04-17-2024 BUN/CRE 20.6 RATIO High 10-20 [facility] Comment on above: Performed By: #### L 400.0001, M100.2200 #### [facility] [address] [place], [address] CA,Total 9.8 mg/dL Normal 8.5-10.1 [facility] Comment on above: Performed By: #### L 400.0001, M100.2200 #### [facility] [address] [place], [address] Chloride [Moles/Vol] 95 mmol/L Low 98-107 [facility] Comment on above: Performed By: #### L 400.0001, #### [facility] [address] [place], [address] CO2 [Moles/Vol] 36.0 mmol/L High 21.0-32.0 [facility] Comment on above: Performed By: #### L 400.0001, #### [facility] [address] [place], [address] Creatinine [Mass/Vol] 0.83 mg/dL Normal 0.55-1.02 [facility] Comment on above: Result Comment: The validity of the calculated GFR GFRAA in patients over 70 years has not been determined. Clinical correlation is essential. Performed By: #### L 400.0001, #### [facility] [address] [place], [address] ECRCL 52.04 ml/min Normal [facility] Comment on above: Performed By: #### L 400.0001, #### [facility] [address] [place], [address] EST GFR - AA 84 mL/min Normal >60 [facility] Comment on above: Result Comment: Afri can Tajik GFR Calc Performed By: #### L 400.0001, #### [facility] [address] [place], [address] GAP 5 Normal 5-15 [facility] Comment on above: Performed By: #### L 400.0001, #### [facility] [address] [place], [address] GFR/1.73 sq M.predicted among non-blacks MDRD (S/P/Bld) [Vol rate/Area] 70 mL/min/{1.73_m2} Normal >60 [facility] Comment on above: Result Comment: Non- GFR Calc Performed By: #### L 400.0001, .2199 #### [facility] [address] [place], [address] Glucose [Mass/Vol] 85 mg/dL Normal 74-106 [facility] Comment on above: Performed By: #### L 400.0001, .2199 #### [facility] [address] [place], [address] Potassium [Moles/Vol] 4.1 mmol/L Normal 3.5-5.1 [facility] Comment on above: Result Comment: Slig ht Hemolysis, Result may be falsely increased. Performed By: #### L 400.0001, #### [facility] [address] [place], [address] Sodium [Moles/Vol] 136 mmol/L Normal 136-145 [facility] Comment on above: Performed By: #### L 400.0001, #### [facility] [address] [place], [address] Urea nitrogen [Mass/Vol] 17 mg/dL Normal 7-18 [facility] Comment on above: Performed By: #### L 400.0001, #### [facility] [address] [place], [address] Blood Gases by [facility] 025 DONY TEST Positive Normal [facility] Comment on above: Performed By: #### L 500.2500, L100.0500 #### [facility] [address] [place], [address] Base excess Calc (Bld) [Moles/Vol] 12 mmol/L High -2 to +2 [facility] Comment on above: Performed By: #### L 500.2500, L100.0500 #### [facility] [address] [place], [address] Blood Gas Type ART [facility] Comment on above: Performed By: #### L 500.2500, L100.0500 #### [facility] [address] [place], [address] CO2 [Moles/Vol] 38 mmol/L [facility] Comment on above: Performed By: #### L 500.2500, L100.0500 #### [facility] [address] [place], [address] FI02 8.0 [facility] Comment on above: Performed By: #### L 500.2500, L100.0500 #### [facility] [address] [place], [address] HCO3 (Bld) [Moles/Vol] 36.1 mmol/L High 22-26 [facility] Comment on above: Performed By: #### L 500.2500, L100.0500 #### [facility] [address] [place], [address] Mode Not entered [facility] Comment on above: Performed By: #### L 500.2500, L100.0500 #### [facility] [address] [place], [address] O2 Delivery Dev Not entered [facility] Comment on above: Performed By: #### L 500.2500, L100.0500 #### [facility] [address] [place], [address] pCO2 53.5 mmHg High 35-45 [facility] Comment on above: Performed By: #### L 500.2500, L100.0500 #### [facility] [address] [place], [address] pH (Bld) 7.44 [pH] Normal 7.35-7.45 [facility] Comment on above: Performed By: #### L 500.2500, L100.0500 #### [facility] [address] [place], [address] PO2 78 mmHG Normal 75-100 [facility] Comment on above: Performed By: #### L 500.2500, L100.0500 #### [facility] [address] [place], [address] SITE R Radial Normal [facility] Comment on above: Performed By: #### L 500.2500, L100.0500 #### [facility] [address] [place], [address] SO2 96 Normal 95-99 [facility] Comment on above: Performed By: #### L 500.2500, L100.0500 #### [facility] [address] [place], [address] CBC W/Diff, Automatedon 02-0 SMEAR COMMENT SCANNED Normal [facility] Comment on above: Result Comment: MONO CYTOSIS PRESENT Performed By: #### L 500.2500, L503.6620, L501.5200, L100.0100 #### [facility] [address] [place], [address] Chest 1 View (Portable)on Chest 1 View (Portable) [facility] [address] [place] [address] Chest 1 View (Portable) MR#: [id number] Acct: [id number] Name: EMILY PERALTA Rep #: [id number] : 1940 F 83 From: Wil Tompkins i DO PCP: Status: PRE ER Study: Chest 1 View (Portable) Date of Exam: 04/17/24 Exam# [id number] Ordering Dr: Ayan Virk DO PROCEDURE: Portable upright chest radiograph, one view REASON FOR EXAM: Cough. TECHNIQUE: Portable upright chest radiograph, one view COMPARISON: None. FINDINGS: The patient is rotated slightly to the right. Bones are osteopenic, grossly intact. Severe degenerative changes of the glenohumeral joints. Heart size at the upper limits of normal. Mild perihilar vascular crowding. No pneumothorax. There may be a tiny right pleural effusion. There are some patchy opacities projecting over the mid to lower lungs bilaterally. 1.8 cm nodular opacity projects over the right mid lung. RAD/Chest 1 View (Portable) IMPRESSION: Mild rightward rotation. Heart size at the upper limits of normal. There are some patchy opacities projecting over the mid to lower lungs bilaterally, which could be due to areas of atelectasis or developing pneumonia. Question tiny right pleural effusion. Recommend continued radiologic follow- up to document resolution. A 1.8 cm nodular opacity projects over the right mid lung. Recommend short-term follow-up chest CT to exclude the possibility of a pulmonary nodule. Severe degenerative changes of the glenohumeral joints. Reading Location: [facility] CC: Ayan Virk DO Track Dresser: Signed Normal [facility] [facility] Emergency Department Summary on 04-17-2024 Emergency Department Summary [facility] Medical Records Department [address] [place] [address] Emergency Department Summary 04/17/24 MR#: [id number] Acct: [id number] Name: EMILY PERALTA Rep #: [id number] : 1940 83 From: Ayan Virk DO PCP: Dr. Kaleb Mace Sr., DO Status:REG ER Location: ED HPI History of Present Illness Chief Complaint: Shortness of Breath Informant: patient and EMS Narrative Narrative: Patient is an 83-year-old female with history of COPD who does not require supplemental oxygen at baseline. Reportedly she began with increased cough and shortness of breath Friday or around 2 in the afternoon. Patient and fdc staff state it seemed to have worsened throughout the night and when they did vitals this morning pulse ox was low at approximately 80%. Secondary to the hypoxia and the fact she does not require oxygen at baseline EMS was called he was brought to the hospital for evaluation EMS states patient was tight and wheezy and they gave 2 DuoNeb's and Solu-Medrol prior to arrival [facility] Medical History Hypothyroidism, unspecified Other intervertebral disc degeneration, lumbar region with discogenic back pain only Other specified peripheral vascular diseases Chronic diastolic (congestive) heart failure Home Medications ???Medication ???Instructions ???Recorded ???Last Taken ???Type acetaminophen 325 mg capsule 650 mg PO TID 04/17/24 Unknown His tory amlodipine 5 mg tablet 5 mg PO DAILY 04/17/24 Unknown His tory baclofen 10 mg tablet 10 mg PO TID 04/17/24 Unknown Hist ory beclomethasone dipropionate 40 2 inh inhalation BID 04/17/24 Unkn own History mcg/actuation HFA breath activated aerosol esomeprazole magnesium 20 mg 20 mg PO DAILY 04/17/24 Unknown Hi story capsule,delayed release prednisone 5 mg tablet 5 mg PO DAILY 04/17/24 Unknown His tory tramadol 50 mg tablet 50 mg PO BID pain 04/17/24 Unknown History Allergy/AdvReac Type Severity Reaction Status Date / Time adhesive tape Allergy PT UNSURE Verified 04/17/24 05:57 OF REACTION aspartame Allergy PT UNSURE Verified 04/17/24 05:57 OF REACTION duloxetine Allergy PT UNSURE Verified 04/17/24 05:57 OF REACTION lorazepam Allergy PT UNSURE Verified 04/17/24 05:57 OF REACTION morphine Allergy PT UNSURE Verified 04/17/24 05:57 OF REACTION oxycodone Allergy PT UNSURE Verified 04/17/24 05:57 OF REACTION ROS ROS ED Constitutional Constitutional ED: Denies chills or fever(s) Eyes Eyes: Denies change in vision ENT ENT ED: Denies sore throat Cardiovascular Cardiovascular: Denies chest pain Respiratory/Chest Respiratory/Chest: Reports cough, dyspnea and other Details: Positive orthopnea Gastrointestinal Gastrointestinal: Denies abdominal pain, diarrhea, nausea or vomiting Musculoskeletal Musculoskeletal: Denies myalgias Integumentary Denies rash Neurologic Neurologic: Denies headache(s) Hematologic/Lymphatic Hematologic/Lymphatic : Denies easy bleeding or easy bruising Allergic/Immunologic Allergic/Immunologic ED: Denies mouth swelling or tongue swelling EXAM Physical Exam Const Vital Signs: 04/17/24 04:56 04/17/24 05:04 04/17/24 05:56 Temperature 98.5 F 98.5 F Temperature Source Oral Oral Pulse Rate 87 90 94 Respiratory Rate 29 H 25 H 18 Respiratory Effort Respiratory Pattern Blood Pressure 128/74 H 128/74 H 121/83 H Blood Pressure Mean 92 92 95 Pulse Ox 90 93 95 Oxygen Delivery Method High Flow High Flow High Flow Oxygen Flow Rate (L/min) 8 8 8 04/17/24 06:00 04/17/24 06:04 04/17/24 06:55 Temperature 98.2 F Temperature Source Temporal Pulse Rate 87 88 Respiratory Rate 18 20 H Respiratory Effort Short of Breath Labored Respiratory Pattern Tachypnea Blood Pressure 135/120 H 135/120 H Blood Pressure Mean 125 125 Pulse Ox 92 91 Oxygen Delivery Method High Flow High Flow High Flow Oxygen Flow Rate (L/min) 8 8 8 Positive well nourished, well developed and obese General Appearance ED: well developed; Negative for pallor Nutritional Appearance: obese HEENT HEENT Narrative: No tongue or lip swelling no oral lesions no airway edema or compromise Cobblestoning is noted in the posterior pharynx consistent with sinus drainage Eyes PERRL and EOMs intact bilaterally General Eye ED: Negative for scleral icterus Neck supple and no JVD Resp Resp Narrative: Patient is tachypneic with slight accessory muscle use Breath sounds are diminished throughout with diffuse inspiratory and expiratory wheezing. No nasal flaring or retractions. No crackles noted Cardio regular rate and regular rhythm Rate: other Other Details: Heart is regular rate and rhythm (more content not included)... Normal [facility] H AND P Exam - Hospitaliston 04-17-2024 H&P Exam - Hospitalist [facility] Medical Records Department [address] [place] [address] H P Exam - Hospitalist 04/17/24 0728 MR#: [id number] Acct: [id number] Name: EMILY PERALTA Rep #: [id number] : 1940 83 From: Tacos Bender DO PCP: Dr. Kaleb Mace SrGinger, DO Status:ADM IN Location: [place] [address] HPI - General General Date of Admission: 04/17/24 Date of Service: 04/17/24 Chief Complaint: Worsening shortness of breath with cough HPI Narrative EMILY PERALTA, is a 83 F who presented to [facility] ED on 04/17/2024 from fdc for worsening shortness of breath with cough. Has known history of COPD but does not wear oxygen at baseline. Staff at fdc noted that patient had worsening cough and shortness of breath starting yesterday. They then noticed that her pulse ox was around 80% on room air this morning so she was brought in for further evaluation. She was given a breathing treatment and a dose of IV Solu-Medrol and route with some improvement. In the ED she was afebrile and blood pressure was normal with no tachycardia, but patient was requiring 10 L high flow nasal cannula to maintain oxygen saturations greater than 90%. Was noted that she had only mild increased work of breathing. Patient was alert to person and place but not to time. Family apparently noted to ED physician that this was close to her baseline. Chest x-ray showed some patchy opacities over the mid to lower lungs bilaterally concerning for atelectasis versus developing pneumonia, along with a 1.8 cm nodular opacity over the right midlung. ED physician wished to do a CT scan of the chest but patient stated she could not lay flat and refused the scan. Given her respiratory failure with concern for pneumonia, hospitalist was contacted for admission. I saw the patient at bedside in the ED, no family was present. Patient was alert but did appear somewhat confused. She knew she was at [facility] but could not tell me month or year. She was mildly agitated and appeared upset that she needed to be admitted to the hospital. She denied any shortness of breath currently on supplemental oxygen. Denied any fevers or chills. No other acute concerns this time. [facility] Medical History Hypothyroidism, unspecified Other intervertebral disc degeneration, lumbar region with discogenic back pain only Other specified peripheral vascular diseases Chronic diastolic (congestive) heart failure Home Medications ???Medication ???Instructions ???Recorded ???Last Taken ???Type acetaminophen 325 mg capsule 650 mg PO TID Pain 04/17/24 History amlodipine 5 mg tablet 5 mg PO DAILY B/P 04/17/24 5 History baclofen 10 mg tablet 10 mg PO TID Spasms 04/17/2404/16 History beclomethasone dipropionate 40 2 inh inhalation BID Respitory 11/0104/16/24 History mcg/actuation HFA breath activated aerosol esomeprazole magnesium 20 mg 20 mg PO DAILY Reflux 04/17/2410/01 History capsule,delayed release prednisone 5 mg tablet 5 mg PO DAILY inflammation 5 04/16/24 History tramadol 50 mg tablet 50 mg PO BID pain 04/17/24 5 History Allergy/AdvReac Type Severity Reaction Status Date / Time adhesive tape Allergy PT UNSURE Verified 04/17/24 05:57 OF REACTION aspartame Allergy PT UNSURE Verified 04/17/24 05:57 OF REACTION duloxetine Allergy PT UNSURE Verified 04/17/24 05:57 OF REACTION lorazepam Allergy PT UNSURE Verified 04/17/24 05:57 OF REACTION morphine Allergy PT UNSURE Verified 04/17/24 05:57 OF REACTION oxycodone Allergy PT UNSURE Verified 04/17/24 05:57 OF REACTION Social History Smoking Status: Never smoker ROS Constitutional Constitutional: Denies chills, fatigue or fever(s) Cardiovascular Cardiovascular: Denies chest pain Respiratory/Chest Respiratory/Chest: Reports cough, shortness of breath at rest, shortness of breath with exertion and wheezing; Denies productive cough Gastrointestinal Gastrointestinal: Denies abdominal pain Neurologic Neurologic: Denies dizziness or headache(s) Vital Signs Vital Signs Vital Signs: 04/17/24 04:56 04/17/24 05:04 04/17/24 05:56 Temperature 98.5 F 98.5 F Temperature Source Oral Oral Pulse Rate 87 90 94 Respiratory Rate 29 H 25 H 18 Respiratory Effort Respiratory Pattern Blood Pressure 128/74 H 128/74 H 121/83 H Blood Pressure Mean 92 92 95 Pulse Ox 90 93 95 Oxygen Delivery Method High Flow High Flow High Flow Oxygen Flow Rate (L/min) 8 8 8 04/17/24 06:00 04/17/24 06:04 04/17/24 06:55 Temperature 98.2 F Temperature Source Temporal Pulse Rate 87 88 Respiratory Rate 18 20 H Respiratory Effort Short of Breath Labore (more content not included)... Normal [facility] M100.678on 04-17-2024 M100.678 Pending SARS-CoV-2 (COVID 19) Negative INFLUENZA A Negative INFLUENZA B Negative RSV PCR Negative Normal [facility] Comment on above: Performed By: #### L 500.2500, L100.0500 #### [facility] [address] [place], [address] Magnesiumon 04-17-2024 Magnesium [Mass/Vol] 1.7 mg/dL Normal 1.6-2.6 [facility] Comment on above: Result Comment: Slig ht Hemolysis, Result may be falsely increased. Performed By: #### L 400.0001, M100.0 #### [facility] [address] [place], [address] Procalcitoninon 04-17-2024 Procalcitonin 0.16 ng/mL High 0.00-0.09 [facility] Comment on above: Result Comment: A procalcitonin (PCT) level above 2.0 ng/mL on the first day of ICU admission is associated with a high risk for progression to severe sepsis and/or septic shock. A PCT level below 0.5 ng/mL on the first day of ICU admission is associated with a low risk for progression to severe and/or septic shock. Note: Concentrations <0.5 ng/mL do not exclude an infection on account of localized infections (without systemic signs) which can be associated with such low concentrations, or a systemic infection in its initial stages (<6 hours). Furthermore, increased procalcitonin can occur without infection. PCT concentrations between 0.5 and 2.0 ng/mL should be interpreted taking into account the patient's history. It is recommended to retest PCT within 6-24 hours if any concentrations <2 ng/mL are obtained. Performed By: #### L 400.0001, M100.2200 #### [facility] [address] [place], [address] RESPIRATORY PANEL MOLECULARo n 04-17-2024 RP PANEL CRITICAL VALUE POTTS D TO SOILA PATTERSON RN U 04/17/24 1741 Khari Kothari. RESULTS READ BACK BY SAME . ADENOVIRUS Not Detected INFLUENZA A A Positive for INFLUENZA A by NAAT technology A INFLUENZA A (SUBTYPE H1) Not Detected INFLUENZA A (SUBTYPE H3) Not Detected INFLUENZA B Not Detected HUMAN METAPHNEUMO Not Detected PARAINFLUENZA 1 Not Detected PARAINFLUENZA 2 Not Detected PARAINFLUENZA 3 Not Detected PARAINFLUENZA 4 Not Detected RHINOVIRUS Not Detected RSV A Not Detected RSV B Not Detected INFLUENZAE A Normal [facility] Comment on above: Performed By: #### L 500.2500, L100.0500 #### [facility] [address] [place], [address] Urinalysis, Routine (Dipstic k)on 04-17-2024 BILIRUBIN URINE Negative Normal Negative [facility] Comment on above: Order Comment: BLADD ER TAP Performed By: #### L 400.0001, M100.2200 #### [facility] [address] [place], [address] Clarity (U) Cloudy Normal Clear [facility] Comment on above: Order Comment: BLADD ER TAP Performed By: #### L 400.0001, M100.2200 #### [facility] [address] [place], [address] Color (U) Yellow Normal Yellow [facility] Comment on above: Order Comment: BLADD ER TAP Performed By: #### L 400.0001, M100.2200 #### [facility] [address] [place], [address] GLUCOSE, UR Normal Normal Normal [facility] Comment on above: Order Comment: BLADD ER TAP Performed By: #### L 400.0001, M100.2200 #### [facility] [address] [place], [address] KETONE UR Negative Normal Negative [facility] Comment on above: Order Comment: BLADD ER TAP Performed By: #### L 400.0001, M100.2200 #### [facility] [address] [place], [address] LEUK ESTERASE 100 /ul Abnormal Negative [facility] Comment on above: Order Comment: BLADD ER TAP Performed By: #### L 400.0001, M100.2199 #### [facility] [address] [place], [address] Nitrite Ql (U) Positive Abnormal Negative [facility] Comment on above: Order Comment: BLADD ER TAP Performed By: #### L 400.0001, 00.2199 #### [facility] [address] [place], [address] OCCULT BLOOD-UR 10 /ul Abnormal Negative [facility] Comment on above: Order Comment: BLADD ER TAP Performed By: #### L 400.0001, .2199 #### [facility] [address] [place], [address] pH UR 8.0 Normal 5.0 - 8.0 [facility] Comment on above: Order Comment: BLADD ER TAP Performed By: #### L 400.0001, .2199 #### [facility] [address] [place], [address] PROT DIPSTX 30 mg/dl Abnormal Negative [facility] Comment on above: Order Comment: BLADD ER TAP Performed By: #### L 400.0001, .2199 #### [facility] [address] [place], [address] SP.GR. DIPSTX 1.010 Normal 1.002-1.030 [facility] Comment on above: Order Comment: BLADD ER TAP Performed By: #### L 400.0001, M100.0 #### [facility] [address] [place], [address] UROBILI 1 mg/dl Abnormal Normal [facility] Comment on above: Order Comment: BLADD ER TAP Performed By: #### L 400.0001, M100.2200 #### [facility] [address] [place], [address] Basic Metabolic Profile (BMP )on 03-11-2024 BUN/CRE 18.8 RATIO Normal 10-20 [facility] Comment on above: Order Comment: 103.1 Performed By: #### L 500.2500 #### [facility] [address] [place], [address] CA,Total 9.9 mg/dL Normal 8.5-10.1 [facility] Comment on above: Order Comment: 103.1 Performed By: #### L 500.2500 #### [facility] [address] [place], [address] Chloride [Moles/Vol] 99 mmol/L Normal 98-107 [facility] Comment on above: Order Comment: 103.1 Performed By: #### L 500.2500 #### [facility] [address] [place], [address] CO2 [Moles/Vol] 32.0 mmol/L Normal 21.0-32.0 [facility] Comment on above: Order Comment: 103.1 Performed By: #### L 500.2500 #### [facility] [address] [place], [address] Creatinine [Mass/Vol] 0.85 mg/dL Normal 0.55-1.02 [facility] Comment on above: Order Comment: 103.1 Result Comment: The validity of the calculated GFR GFRAA in patients over 70 years has not been determined. Clinical correlation is essential. Performed By: #### L 500.2500 #### [facility] [address] [place], [address] EST GFR - AA 82 mL/min Normal >60 [facility] Comment on above: Order Comment: 103.1 Result Comment: Afri can Tajik GFR Calc Performed By: #### L 500.2500 #### [facility] [address] [place], [address] GAP 5 Normal 5-15 [facility] Comment on above: Order Comment: 103.1 Performed By: #### L 500.2500 #### [facility] [address] [place], [address] GFR/1.73 sq M.predicted among non-blacks MDRD (S/P/Bld) [Vol rate/Area] 68 mL/min/{1.73_m2} Normal >60 [facility] Comment on above: Order Comment: 103.1 Result Comment: Non- GFR Calc Performed By: #### L 500.2500 #### [facility] [address] [place], [address] Glucose [Mass/Vol] 89 mg/dL Normal 74-106 [facility] Comment on above: Order Comment: 103.1 Performed By: #### L 500.2500 #### [facility] [address] [place], [address] Potassium [Moles/Vol] 3.8 mmol/L Normal 3.5-5.1 [facility] Comment on above: Order Comment: 103.1 Performed By: #### L 500.2500 #### [facility] [address] [place], [address] Sodium [Moles/Vol] 136 mmol/L Normal 136-145 [facility] Comment on above: Order Comment: 103.1 Performed By: #### L 500.2500 #### [facility] [address] [place], [address] Urea nitrogen [Mass/Vol] 16 mg/dL Normal 7-18 [facility] Comment on above: Order Comment: 103.1 Performed By: #### L 500.2500 #### [facility] [address] [place], [address] Thyroid Stim Hormone (TSH)on 02-09-2024 TSH 1.120 uIU/mL Normal 0.358-3.740 [facility] Comment on above: Order Comment: 103.1 Performed By: #### L 500.2500, L100.0500 #### [facility] [address] [place], [address] Basic Metabolic Profile (BMP )on 02-02-2024 BUN/CRE 19.2 RATIO Normal 10-20 [facility] Comment on above: Order Comment: 103.1 Performed By: #### L 100.4500, L100.0500, L500.2500 #### [facility] [address] [place], [address] CA,Total 9.4 mg/dL Normal 8.5-10.1 [facility] Comment on above: Order Comment: 103.1 Performed By: #### L 100.4500, L100.0500, L500.2500 #### [facility] [address] [place], [address] Chloride [Moles/Vol] 102 mmol/L Normal 98-107 [facility] Comment on above: Order Comment: 103.1 Performed By: #### L 100.4500, L100.0500, L500.2500 #### [facility] [address] [place], [address] CO2 [Moles/Vol] 32.0 mmol/L Normal 21.0-32.0 [facility] Comment on above: Order Comment: 103.1 Performed By: #### L 100.4500, L100.0500, L500.2500 #### [facility] [address] [place], [address] Creatinine [Mass/Vol] 0.78 mg/dL Normal 0.55-1.02 [facility] Comment on above: Order Comment: 103.1 Result Comment: The validity of the calculated GFR GFRAA in patients over 70 years has not been determined. Clinical correlation is essential. Performed By: #### L 100.4500, L100.0500, L500.2500 #### [facility] [address] [place], [address] EST GFR - AA 90 mL/min Normal >60 [facility] Comment on above: Order Comment: 103.1 Result Comment: Afri can Tajik GFR Calc Performed By: #### L 100.4500, L100.0500, L500.2500 #### [facility] [address] [place], [address] GAP 4 Low 5-15 [facility] Comment on above: Order Comment: 103.1 Performed By: #### L 100.4500, L100.0500, L500.2500 #### [facility] [address] [place], [address] GFR/1.73 sq M.predicted among non-blacks MDRD (S/P/Bld) [Vol rate/Area] 74 mL/min/{1.73_m2} Normal >60 [facility] Comment on above: Order Comment: 103.1 Result Comment: Non- GFR Calc Performed By: #### L 100.4500, L100.0500, L500.2500 #### [facility] [address] [place], [address] Glucose [Mass/Vol] 80 mg/dL Normal 74-106 [facility] Comment on above: Order Comment: 103.1 Performed By: #### L 100.4500, L100.0500, L500.2500 #### [facility] [address] [place], [address] Potassium [Moles/Vol] 3.9 mmol/L Normal 3.5-5.1 [facility] Comment on above: Order Comment: 103.1 Performed By: #### L 100.4500, L100.0500, L500.2500 #### [facility] [address] [place], [address] Sodium [Moles/Vol] 138 mmol/L Normal 136-145 [facility] Comment on above: Order Comment: 103.1 Performed By: #### L 100.4500, L100.0500, L500.2500 #### [facility] [address] [place], [address] Urea nitrogen [Mass/Vol] 15 mg/dL Normal 7-18 [facility] Comment on above: Order Comment: 103.1 Performed By: #### L 100.4500, L100.0500, L500.2500 #### [facility] [address] [place], [address] CBC-Complete Blood Cnt No Di ffon 02-02-2024 Erythrocyte distribution width (RBC) [Ratio] 13.9 % Normal 11.6-14.6 [facility] Comment on above: Performed By: #### L 100.4500, L100.0500, L500.2500 #### [facility] [address] [place], [address] Hematocrit (Bld) [Volume fraction] 37.2 % Normal 37-47 [facility] Comment on above: Performed By: #### L 100.4500, L100.0500, L500.2500 #### [facility] [address] [place], [address] Hemoglobin (Bld) [Mass/Vol] 12.1 g/dL Normal 12.0-15.0 [facility] Comment on above: Performed By: #### L 100.4500, L100.0500, L500.2500 #### [facility] [address] [place], [address] MCH (RBC) [Entitic mass] 28.2 pg Normal 27.0-32.0 [facility] Comment on above: Performed By: #### L 100.4500, L100.0500, L500.2500 #### [facility] [address] [place], [address] MCHC (RBC) [Mass/Vol] 32.5 g/dL Normal 32-36 [facility] Comment on above: Performed By: #### L 100.4500, L100.0500, L500.2500 #### [facility] [address] [place], [address] MCV (RBC) [Entitic vol] 86.7 fL Normal 81-99 [facility] Comment on above: Performed By: #### L 100.4500, L100.0500, L500.2500 #### [facility] [address] [place], [address] Platelet mean volume (Bld) [Entitic vol] 10.3 fL Normal 6.2-12.0 [facility] Comment on above: Performed By: #### L 100.4500, L100.0500, L500.2500 #### [facility] [address] [place], [address] Platelets (Bld) [#/Vol] 87 10*3/uL Low 150-450 [facility] Comment on above: Performed By: #### L 100.4500, L100.0500, L500.2500 #### [facility] [address] [place], [address] RBC (Bld) [#/Vol] 4.29 10*6/uL Normal 4.2-5.4 [facility] Comment on above: Performed By: #### L 100.4500, L100.0500, L500.2500 #### [facility] [address] [place], [address] RDW SD 44.1 fl High 35.1-43.9 [facility] Comment on above: Performed By: #### L 100.4500, L100.0500, L500.2500 #### [facility] [address] [place], [address] WBC (Bld) [#/Vol] 4.7 10*3/uL Normal 4.4-11.0 [facility] Comment on above: Performed By: #### L 100.4500, L100.0500, L500.2500 #### [facility] [address] [place], [address] Differential Commenton 02-01 SMEAR COMMENT Normal [facility] Comment on above: Result Comment: NORM ACYTIC NORMACHROMIC MODERATELY DECREASED PLATELETS Performed By: #### L 100.4500, L100.0500, L500.2500 #### [facility] [address] [place], [address] Urine Cultureon 01-15-2024 URC Klebsiella pneumonia e sp pneum Proctor Count >100,000 Klebsiella pneumoniae sp pneum: REACTION Ampicillin Islt GERMAN Ampicillin+Sulbac Islt GERMAN 4 S ceFAZolin Islt GERMAN <=4 S Cefepime Islt GERMAN <=0.12 S cefTRIAXone Islt GERMAN <=0.25 S Ciprofloxacin Islt GERMAN <=0.25 S B-Lactamase Extended Susc Islt NEG Gentamicin Islt GERMAN <=1 S Imipenem Islt GERMAN <=0.25 S levoFLOXacin Islt GERMAN 1 I Nitrofurantoin Islt GERMAN 256 R Pip+Tazo Islt GERMAN 8 S Tobramycin Islt GERMAN <=1 S TMP SMX Islt GERMAN <=20 S Normal [facility] Comment on above: Performed By: #### L 400.0001, M100.2200 #### [facility] [address] [place], [address] Urinalysis, Completeon 01-12 BACTERIA 2+ /hpf Normal None Seen [facility] Comment on above: Order Comment: CLEAN CATCH Performed By: #### L 400.0001, M100.2200 #### [facility] [address] [place], [address] EPI,SQUAMOUS 0-5 SEEN Normal 5-10 [facility] Comment on above: Order Comment: CLEAN CATCH Performed By: #### L 400.0001, M100.2200 #### [facility] [address] [place], [address] RBC 0-5 SEEN Normal 0-5 [facility] Comment on above: Order Comment: CLEAN CATCH Performed By: #### L 400.0001, #### [facility] [address] [place], [address] WBC >100 SEEN Normal 0-5 [facility] Comment on above: Order Comment: CLEAN CATCH Performed By: #### L 400.0001, #### [facility] [address] [place], [address] Mucus Ql (Urine sed) 0 SEEN Normal [facility] Comment on above: Order Comment: CLEAN CATCH Performed By: #### L 400.0001, #### [facility] [address] [place], [address] Urine Cultureon 01-04-2024 URC Klebsiella pneumonia e sp pneum Proctor Count >100,000 Klebsiella pneumoniae sp pneum: REACTION Ampicillin Islt GERMAN Ampicillin+Sulbac Islt GERMAN <=2 S ceFAZolin Islt GERMAN <=4 S Cefepime Islt GERMAN <=0.12 S cefTRIAXone Islt GERMAN <=0.25 S Ciprofloxacin Islt GERMAN <=0.25 S B-Lactamase Extended Susc Islt NEG Gentamicin Islt GERMAN <=1 S Imipenem Islt GERMAN <=0.25 S levoFLOXacin Islt GERMAN <=0.12 S Nitrofurantoin Islt GERMAN 32 S Pip+Tazo Islt GERMAN <=4 S Tobramycin Islt GERMAN <=1 S TMP SMX Islt GERMAN <=20 S Normal [facility] Comment on above: Performed By: #### L 400.0001, #### [facility] [address] [place], [address] Urinalysis, Completeon 01-01 EPI,SQUAMOUS 0-5 SEEN Normal 5-10 [facility] Comment on above: Order Comment: CLEAN CATCH Performed By: #### L 400.0001, #### [facility] [address] [place], [address] BACTERIA 2+ /hpf Normal None Seen [facility] Comment on above: Order Comment: CLEAN CATCH Performed By: #### L 400.0001, M100.0 #### [facility] [address] [place], [address] EPI,TRANSITION 0-5 SEEN Normal 0-5 [facility] Comment on above: Order Comment: CLEAN CATCH Performed By: #### L 400.0001, M1.0 #### [facility] [address] [place], [address] WBC 50-100 SEEN Normal 0-5 [facility] Comment on above: Order Comment: CLEAN CATCH Performed By: #### L 400.0001, M1.0 #### [facility] [address] [place], [address] Mucus Ql (Urine sed) 0 SEEN Normal [facility] Comment on above: Order Comment: CLEAN CATCH Performed By: #### L 400.0001, M1.0 #### [facility] [address] [place], [address] RBC 0 SEEN Normal 0-5 [facility] Comment on above: Order Comment: CLEAN CATCH Performed By: #### L 400.0001, M1.2199 #### [facility] [address] [place], [address] Thyroid Stim Hormone (TSH)on 12-29-2023 TSH 0.328 uIU/mL Low 0.358-3.740 [facility] Comment on above: Order Comment: 103.1 Performed By: #### L 501.9520 #### [facility] [address] [place], [address] CBC-Complete Blood Cnt No Di ffon 11-17-2023 Erythrocyte distribution width (RBC) [Ratio] 18.2 % High 11.6-14.6 [facility] Comment on above: Order Comment: 103-1 Performed By: #### L 400.0001, #### [facility] [address] [place], [address] Hematocrit (Bld) [Volume fraction] 37.9 % Normal 37-47 [facility] Comment on above: Order Comment: 103-1 Performed By: #### L 400.0001, #### [facility] [address] [place], [address] Hemoglobin (Bld) [Mass/Vol] 12.2 g/dL Normal 12.0-15.0 [facility] Comment on above: Order Comment: 103-1 Performed By: #### L 400.0001, #### [facility] [address] [place], [address] MCH (RBC) [Entitic mass] 28.1 pg Normal 27.0-32.0 [facility] Comment on above: Order Comment: 103-1 Performed By: #### L 400.0001, #### [facility] [address] [place], [address] MCHC (RBC) [Mass/Vol] 32.2 g/dL Normal 32-36 [facility] Comment on above: Order Comment: 103-1 Performed By: #### L 400.0001, #### [facility] [address] [place], [address] MCV (RBC) [Entitic vol] 87.3 fL Normal 81-99 [facility] Comment on above: Order Comment: 103-1 Performed By: #### L 400.0001, #### [facility] [address] [place], [address] Platelet mean volume (Bld) [Entitic vol] 10.6 fL Normal 6.2-12.0 [facility] Comment on above: Order Comment: 103-1 Performed By: #### L 400.0001, .2199 #### [facility] [address] [place], [address] Platelets (Bld) [#/Vol] 112 10*3/uL Low 150-450 [facility] Comment on above: Order Comment: 103-1 Performed By: #### L 400.0001, .2199 #### [facility] [address] [place], [address] RBC (Bld) [#/Vol] 4.34 10*6/uL Normal 4.2-5.4 [facility] Comment on above: Order Comment: 103-1 Performed By: #### L 400.0001, .2199 #### [facility] [address] [place], [address] RDW SD 58.2 fl High 35.1-43.9 [facility] Comment on above: Order Comment: 103-1 Performed By: #### L 400.0001, .2199 #### [facility] [address] [place], [address] WBC (Bld) [#/Vol] 6.8 10*3/uL Normal 4.4-11.0 [facility] Comment on above: Order Comment: 103-1 Performed By: #### L 400.0001, .2199 #### [facility] [address] [place], [address] Comprehensive Metabolic Prof ilon 11-17-2023 Albumin [Mass/Vol] 3.0 g/dL Low 3.2-5.0 [facility] Comment on above: Order Comment: 103-1 Performed By: #### L 400.0001, M1.2199 #### [facility] [address] [place], [address] Albumin/Globulin [Mass ratio] 0.8 {ratio} Low 0.9-2.4 [facility] Comment on above: Order Comment: 103-1 Performed By: #### L 400.0001, #### [facility] [address] [place], [address] ALK P 117 U/L Normal 45-117 [facility] Comment on above: Order Comment: 103-1 Performed By: #### L 400.0001, #### [facility] [address] [place], [address] ALT [Catalytic activity/Vol] 19 U/L Normal 13-56 [facility] Comment on above: Order Comment: 103-1 Performed By: #### L 400.0001, #### [facility] [address] [place], [address] AST [Catalytic activity/Vol] 21 U/L Normal 15-37 [facility] Comment on above: Order Comment: 103-1 Performed By: #### L 400.0001, #### [facility] [address] [place], [address] Bilirubin [Mass/Vol] 0.50 mg/dL Normal 0.20-1.00 [facility] Comment on above: Order Comment: - Result Comment: For patients on eltrombopag therapy, use of Dimension Burns TBIL is not recommended. Performed By: #### L 400.0001, #### [facility] [address] [place], [address] BUN/CRE 16.9 RATIO Normal 10-20 [facility] Comment on above: Order Comment: 103-1 Performed By: #### L 400.0001, #### [facility] [address] [place], [address] CA,Total 9.9 mg/dL Normal 8.5-10.1 [facility] Comment on above: Order Comment: 103-1 Performed By: #### L 400.0001, #### [facility] [address] [place], [address] Chloride [Moles/Vol] 99 mmol/L Normal 98-107 [facility] Comment on above: Order Comment: 103-1 Performed By: #### L 400.0001, #### [facility] [address] [place], [address] CO2 [Moles/Vol] 32.0 mmol/L Normal 21.0-32.0 [facility] Comment on above: Order Comment: 103- Performed By: #### L 400.0001, #### [facility] [address] [place], [address] Creatinine [Mass/Vol] 0.89 mg/dL Normal 0.55-1.02 [facility] Comment on above: Order Comment: 103- Result Comment: The validity of the calculated GFR GFRAA in patients over 70 years has not been determined. Clinical correlation is essential. Performed By: #### L 400.0001, #### [facility] [address] [place], [address] EST GFR - AA 78 mL/min Normal >60 [facility] Comment on above: Order Comment: 103- Result Comment: Afri can [place] GFR Calc Performed By: #### L 400.0001, #### [facility] [address] [place], [address] GAP 5 Normal 5-15 [facility] Comment on above: Order Comment: 103- Performed By: #### L 400.0001, #### [facility] [address] [place], [address] GFR/1.73 sq M.predicted among non-blacks MDRD (S/P/Bld) [Vol rate/Area] 64 mL/min/{1.73_m2} Normal >60 [facility] Comment on above: Order Comment: Result Comment: Non- GFR Calc Performed By: #### L 400.0001, #### [facility] [address] [place], [address] Globulin (S) [Mass/Vol] 3.7 g/dL Normal 2.2-4.2 [facility] Comment on above: Order Comment: - Performed By: #### L 400.0001, #### [facility] [address] [place], [address] Glucose [Mass/Vol] 107 mg/dL High 74-106 [facility] Comment on above: Order Comment: Result Comment: Fast ing Glucose result from 100 to 125 mg/dL suggests IMPAIRED HOMEOSTASIS per A.D.A. criteria. Performed By: #### L 400.0001, #### [facility] [address] [place], [address] Potassium [Moles/Vol] 3.8 mmol/L Normal 3.5-5.1 [facility] Comment on above: Order Comment: Performed By: #### L 400.0001, #### [facility] [address] [place], [address] Sodium [Moles/Vol] 136 mmol/L Normal 136-145 [facility] Comment on above: Order Comment: - Performed By: #### L 400.0001, #### [facility] [address] [place], [address] T PROT 6.7 g/dL Normal 6.4-8.2 [facility] Comment on above: Order Comment: - Performed By: #### L 400.0001, #### [facility] [address] [place], [address] Urea nitrogen [Mass/Vol] 15 mg/dL Normal 7-18 [facility] Comment on above: Order Comment: 103- Performed By: #### L 400.0001, M100.0 #### [facility] [address] [place], [address] Thyroid Stim Hormone (TSH)on 11-17-2023 TSH 4.030 uIU/mL High 0.358-3.740 [facility] Comment on above: Order Comment: 103- Performed By: #### L 400.0001, M100.0 #### [facility] [address] [place], [address] CASE MANAGEMon 10-24-2023 CASE MANAGEM Normal [facility] CASE MANAGEM Normal [facility] CASE MANAGEM Normal [facility] CBC panel Auto (Bld)on 10-23 Erythrocyte distribution width (RBC) [Ratio] 16.3 % High 11.5-15.0 [facility] Comment on above: Order Comment: Speci men Type: BLOOD SPECIMENOrdering Facility: [facility] Address: [address] [place] [address] Performed By: #### 5 8410-2 ####[facility] LABORATORYCLIA [id number] [place] [id number] [place] Hematocrit (Bld) [Volume fraction] 35.6 % Low 36.0-46.0 [facility] Comment on above: Order Comment: Speci men Type: BLOOD SPECIMENOrdering Facility: [facility] Address: [address] [place] [address] Performed By: #### 5 8410-2 ####[facility] LABORATORYCLIA [id number] [place] [address] [place] Hemoglobin (Bld) [Mass/Vol] 11.6 g/dL Normal 11.5-15.5 [facility] Comment on above: Order Comment: Speci men Type: BLOOD SPECIMENOrdering Facility: [facility] Address: [address] [place] [address] Performed By: #### 5 8410-2 ####[facility] LABORATORYCLIA [id number] [address] MCH (RBC) [Entitic mass] 27.7 pg Normal 26.0-34.0 [facility] Comment on above: Order Comment: Speci men Type: BLOOD SPECIMENOrdering Facility: [facility] Address: [address] [place] [address] Performed By: #### 5 8410-2 ####[facility] LABORATORYCLIA [id number] [address] MCHC (RBC) [Mass/Vol] 32.6 g/dL Normal 30.5-36.0 [facility] Comment on above: Order Comment: Speci men Type: BLOOD SPECIMENOrdering Facility: [facility] Address: [address] [place] [address] Performed By: #### 5 8410-2 ####[facility] LABORATORYCLIA [id number] [address] [place] [facility] MCV (RBC) [Entitic vol] 85.0 fL Normal 80.0-100.0 [facility] Comment on above: Order Comment: Speci men Type: BLOOD SPECIMENOrdering Facility: [facility] Address: [address] [place] [address] Performed By: #### 5 8410-2 ####[facility] LABORATORYCLIA [id number] [address] [place] Nucleated RBC (Bld) [#/Vol] 10*3/uL Normal <0.01 [facility] Comment on above: Order Comment: Speci men Type: BLOOD SPECIMENOrdering Facility: [facility] Address: [address] [place] [address] Performed By: #### 5 8410-2 ####[facility] LABORATORYCLIA [id number] [place] [address] [place] Platelet mean volume (Bld) [Entitic vol] 9.3 fL Normal 9.0-12.7 [facility] Comment on above: Order Comment: Speci men Type: BLOOD SPECIMENOrdering Facility: [facility] Address: [address] [place] [address] Performed By: #### 5 8410-2 ####[facility] LABORATORYCLIA [id number] [place] [id number] [place] Platelets (Bld) [#/Vol] 102 10*3/uL Low 150-400 [facility] Comment on above: Order Comment: Speci men Type: BLOOD SPECIMENOrdering Facility: [facility] Address: [address] [place] [address] Performed By: #### 5 8410-2 ####[facility] LABORATORYCLIA [id number] [place] [address] [place] RBC (Bld) [#/Vol] 4.19 10*6/uL Normal 3.90-5.20 [facility] Comment on above: Order Comment: Speci men Type: BLOOD SPECIMENOrdering Facility: [facility] Address: [address] [place] [address] Performed By: #### 5 8410-2 ####[facility] LABORATORYCLIA [id number] [place] [id number] [place] WBC (Bld) [#/Vol] 5.62 10*3/uL Normal 3.70-11.00 [facility] Comment on above: Order Comment: Speci men Type: BLOOD SPECIMENOrdering Facility: [facility] Address: [address] [place] [address] Performed By: #### 5 8410-2 ####[facility] LABORATORYCLIA [id number] [place] [id number] [place] CNDSon 10-24-2023 CNDS Normal [facility] Comprehensive metabolic 2000 panelon 10-24-2023 Albumin [Mass/Vol] 2.8 g/dL Low 3.2-5.0 [facility] Comment on above: Order Comment: Speci men Type: BLOOD SPECIMENOrdering Facility: [facility] Address: [address] [place] [address] Performed By: #### 2 4323-8 ####[facility] LABORATORYCLIA [id number] [place] [address] [place] ALP [Catalytic activity/Vol] 77 U/L Normal 45-117 [facility] Comment on above: Order Comment: Speci men Type: BLOOD SPECIMENOrdering Facility: [facility] Address: [address] [place] [address] Performed By: #### 2 4323-8 ####[facility] LABORATORYCLIA [id number] [place] [address] [place] ALT [Catalytic activity/Vol] 15 U/L Normal 13-61 [facility] Comment on above: Order Comment: Speci men Type: BLOOD SPECIMENOrdering Facility: [facility] Address: [address] [place] [address] Result Comment: Resu lts may be falsely depressed after the administration of Sulfasalazine and/or Sulfapyridine. Performed By: #### 2 4323-8 ####[facility] LABORATORYCLIA [id number] [place] [address] [place] Anion gap [Moles/Vol] 5 mmol/L Normal 5-16 [facility] Comment on above: Order Comment: Speci men Type: BLOOD SPECIMENOrdering Facility: [facility] Address: [address] [place] [address] Performed By: #### 2 4323-8 ####[facility] LABORATORYCLIA [id number] [place] [address] [place] AST [Catalytic activity/Vol] 23 U/L Normal 8-34 [facility] Comment on above: Order Comment: Speci men Type: BLOOD SPECIMENOrdering Facility: [facility] Address: [address] [place] [address] Result Comment: Resu lts may be falsely depressed after the administration of Sulfasalazine and/or Sulfapyridine. Performed By: #### 2 4323-8 ####[facility] LABORATORYCLIA [id number] [place] [address] [place] Bilirubin [Mass/Vol] 0.6 mg/dL Normal 0.2-1.0 [facility] Comment on above: Order Comment: Speci men Type: BLOOD SPECIMENOrdering Facility: [facility] Address: [address] [place] [address] Performed By: #### 2 4323-8 ####[facility] LABORATORYCLIA [id number] [place] [address] [place] Calcium [Mass/Vol] 10.0 mg/dL Normal 8.5-10.5 [facility] Comment on above: Order Comment: Speci men Type: BLOOD SPECIMENOrdering Facility: [facility] Address: [address] [place] [address] Performed By: #### 2 4323-8 ####[facility] LABORATORYCLIA [id number] [place] [address] [place] Chloride [Moles/Vol] 106 mmol/L Normal 98-107 [facility] Comment on above: Order Comment: Speci men Type: BLOOD SPECIMENOrdering Facility: [facility] Address: [address] [place] [address] Performed By: #### 2 4323-8 ####[facility] LABORATORYCLIA [id number] [place] [address] [place] CO2 [Moles/Vol] 25 mmol/L Normal 21-32 [facility] Comment on above: Order Comment: Speci men Type: BLOOD SPECIMENOrdering Facility: [facility] Address: [address] [place] [address] Performed By: #### 2 4323-8 ####[facility] LABORATORYCLIA [id number] [place] [address] [place] Creatinine [Mass/Vol] 0.70 mg/dL Normal 0.51-0.95 [facility] Comment on above: Order Comment: Speci men Type: BLOOD SPECIMENOrdering Facility: [facility] Address: [address] [place] [address] Result Comment: Linn ents receiving either N-Acetylcysteine (NAC) or Metamizole prior to venipuncture, may have falsely depressed results. Performed By: #### 2 4323-8 ####[facility] LABORATORYCLIA [id number] [place] [address] [place] Creatinine and Glomerular filtration rate.predicted panel (S/P/Bld) 85 mL/min/1.73m??? Normal >=60 [facility] Comment on above: Order Comment: Specsamantha smith Type: BLOOD SPECIMENOrdering Facility: [facility] Address: [address] [place] [address] Result Comment: Esme mated Glomerular Filtration Rate (eGFR) is calculated using the 2020 CKD-EPI creatinine equation. This equation utilizes serum creatinine, sex, and age as parameters. The creatinine assay has traceable calibration to isotope dilution-mass spectrometry. Refer to KDIGO guidelines for clinical interpretation. In patients with unstable renal function, e.g. those with acute kidney injury, the eGFR may not accurately reflect actual GFR. Performed By: #### 2 4323-8 ####[facility] LABORATORYCLIA [id number] [place] [address] [place] Glucose [Mass/Vol] 71 mg/dL Normal 70-100 [facility] Comment on above: Order Comment: Brady smith Type: BLOOD SPECIMENOrdering Facility: [facility] Address: [address] [place] [address] Result Comment: The [place] [employer] (ADA) provides guidance for cutoff values for fasting glucose and random glucose. The ADA defines fasting as no caloric intake for at least 8 hours. Fasting plasma glucose results between 100 to 125 mg/dL indicate increased risk for diabetes (prediabetes).Fasting plasma glucose results greater than or equal to 126 mg/dL meet the criteria for diagnosis of diabetes. In the absence of unequivocal hyperglycemia, results should be confirmed by repeat testing. In a patient with classic symptoms of hyperglycemia or hyperglycemic crisis, random plasma glucose results greater than or equal to 200 mg/dL meet the criteria for diagnosis of diabetes.Reference: Standards of Medical Care in Diabetes 2016, [place] [employer]. Diabetes Care. 2016.39(Suppl 1).Results may be falsely elevated after the administration of Sulfapyridine.Results may be falsely depressed after the administration of Sulfasalazine. Performed By: #### 2 4323-8 ####[facility] LABORATORYCLIA [id number] [place] [id number] [place] Potassium [Moles/Vol] 4.5 mmol/L Normal 3.5-5.1 [facility] Comment on above: Order Comment: Speci men Type: BLOOD SPECIMENOrdering Facility: [facility] Address: [address] [place] [address] Performed By: #### 2 4323-8 ####[facility] LABORATORYCLIA [id number] [place] [id number] [place] Protein [Mass/Vol] 5.8 g/dL Low 6.0-8.5 [facility] Comment on above: Order Comment: Speci men Type: BLOOD SPECIMENOrdering Facility: [facility] Address: [address] [place] [address] Performed By: #### 2 4323-8 ####[facility] LABORATORYCLIA [id number] [place] [address] [place] Sodium [Moles/Vol] 136 mmol/L Normal 136-145 [facility] Comment on above: Order Comment: Speci men Type: BLOOD SPECIMENOrdering Facility: [facility] Address: [address] [place] [address] Performed By: #### 2 4323-8 ####[facility] LABORATORYCLIA [id number] [place] [id number] [place] Urea nitrogen [Mass/Vol] 8 mg/dL Normal 7-26 [facility] Comment on above: Order Comment: Speci men Type: BLOOD SPECIMENOrdering Facility: [facility] Address: [address] [place] [address] Performed By: #### 2 4323-8 ####[facility] LABORATORYCLIA [id number] [place] [id number] [place] THERAPY NTon 10-24-2023 THERAPY NT Normal [facility] ALLIED HEALTHon 10-23-2023 ALLIED HEALTH Normal [facility] AST SerPl-cCncon 10-23-2023 AST [Catalytic activity/Vol] 21 U/L Normal 8-34 [facility] Comment on above: Order Comment: Speci men Type: BLOOD SPECIMENOrdering Facility: [facility] Address: [address] [place] [address] Result Comment: Resu lts may be falsely depressed after the administration of Sulfasalazine and/or Sulfapyridine. Performed By: #### 1 920-8, 92225-9, 2156-08 ####[facility] LABORATORYCLIA [id number] [place] [id number] [place] Basic metabolic 2000 panelon 10-23-2023 Anion gap [Moles/Vol] 5 mmol/L Normal 5-16 [facility] Comment on above: Order Comment: Speci men Type: BLOOD SPECIMENOrdering Facility: [facility] Address: [address] [place] [address] Performed By: #### 1 920-8, 29472-0, 2156-08 ####[facility] LABORATORYCLIA [id number] [place] [address] [place] Calcium [Mass/Vol] 10.0 mg/dL Normal 8.5-10.5 [facility] Comment on above: Order Comment: Speci men Type: BLOOD SPECIMENOrdering Facility: [facility] Address: [address] [place] [address] Performed By: #### 1 920-8, 32206-8, 2156-08 ####[facility] LABORATORYCLIA [id number] [place] [id number] [place] Chloride [Moles/Vol] 105 mmol/L Normal 98-107 [facility] Comment on above: Order Comment: Speci men Type: BLOOD SPECIMENOrdering Facility: [facility] Address: [address] [place], [place] [address] Performed By: #### 1 920-8, 17599-0, 2156-08 ####[facility] LABORATORYCLIA [id number] [place] [address] [place] [place] CO2 [Moles/Vol] 24 mmol/L Normal 21-32 [facility] Comment on above: Order Comment: Speci men Type: BLOOD SPECIMENOrdering Facility: [facility] Address: [address] [place] [address] Performed By: #### 1 920-8, 20848-5, 2156-08 ####[facility] LABORATORYCLIA [id number] [place] [address] [place] Creatinine [Mass/Vol] 0.74 mg/dL Normal 0.51-0.95 [facility] Comment on above: Order Comment: Speci men Type: BLOOD SPECIMENOrdering Facility: [facility] Address: [address] [place] [address] Result Comment: Linn ents receiving either N-Acetylcysteine (NAC) or Metamizole prior to venipuncture, may have falsely depressed results. Performed By: #### 1 920-8, 60248-4, 2156-08 ####[facility] LABORATORYCLIA [id number] [address] STATES [facility] Creatinine and Glomerular filtration rate.predicted panel (S/P/Bld) 80 mL/min/1.73m??? Normal >=60 [facility] Comment on above: Order Comment: Speci men Type: BLOOD SPECIMENOrdering Facility: [facility] Address: [address] [place] [address] Result Comment: Esme mated Glomerular Filtration Rate (eGFR) is calculated using the 2020 CKD-EPI creatinine equation. This equation utilizes serum creatinine, sex, and age as parameters. The creatinine assay has traceable calibration to isotope dilution-mass spectrometry. Refer to KDIGO guidelines for clinical interpretation. In patients with unstable renal function, e.g. those with acute kidney injury, the eGFR may not accurately reflect actual GFR. Performed By: #### 1 920-8, 88334-5, 2156-08 ####[facility] LABORATORYCLIA [id number] [place] [id number] [place] Glucose [Mass/Vol] 71 mg/dL Normal 70-100 [facility] Comment on above: Order Comment: Brady smith Type: BLOOD SPECIMENOrdering Facility: [facility] Address: [address] [place], [place] [id number] Result Comment: The [place] [employer] (ADA) provides guidance for cutoff values for fasting glucose and random glucose. The ADA defines fasting as no caloric intake for at least 8 hours. Fasting plasma glucose results between 100 to 125 mg/dL indicate increased risk for diabetes (prediabetes).Fasting plasma glucose results greater than or equal to 126 mg/dL meet the criteria for diagnosis of diabetes. In the absence of unequivocal hyperglycemia, results should be confirmed by repeat testing. In a patient with classic symptoms of hyperglycemia or hyperglycemic crisis, random plasma glucose results greater than or equal to 200 mg/dL meet the criteria for diagnosis of diabetes.Reference: Standards of Medical Care in Diabetes 2016, [place] [employer]. Diabetes Care. 2016.39(Suppl 1).Results may be falsely elevated after the administration of Sulfapyridine.Results may be falsely depressed after the administration of Sulfasalazine. Performed By: #### 1 920-8, 34300-4, 2156-08 ####[facility] LABORATORYCLIA [id number] [place] [address] [place] Potassium [Moles/Vol] 3.9 mmol/L Normal 3.5-5.1 [facility] Comment on above: Order Comment: Brady smith Type: BLOOD SPECIMENOrdering Facility: [facility] Address: [address] [place] [address] Performed By: #### 1 920-8, 93407-2, 2156-08 ####[facility] LABORATORYCLIA [id number] [place] [address] [place] Sodium [Moles/Vol] 134 mmol/L Low 136-145 [facility] Comment on above: Order Comment: Brady smith Type: BLOOD SPECIMENOrdering Facility: [facility] Address: [address] [place] [address] Performed By: #### 1 920-8, 36965-3, 2156-08 ####[facility] LABORATORYCLIA [id number] [place] [address] [place] Urea nitrogen [Mass/Vol] 9 mg/dL Normal 7-26 [facility] Comment on above: Order Comment: Speci men Type: BLOOD SPECIMENOrdering Facility: [facility] Address: [address] [place] [address] Performed By: #### 1 920-8, 01341-7, 2157-6 ####[facility] LABORATORYCLIA [id number] [place] [id number] [place] CASE MANAGEMon 10-23-2023 CASE MANAGEM Normal [facility] CBC panel Auto (Bld)on 10-22 Erythrocyte distribution width (RBC) [Ratio] 16.4 % High 11.5-15.0 [facility] Comment on above: Order Comment: Speci men Type: BLOOD SPECIMENOrdering Facility: [facility] Address: [address] [place] [address] Performed By: #### 5 8410-2 ####[facility] LABORATORYCLIA [id number] [address] [place] Hematocrit (Bld) [Volume fraction] 36.8 % Normal 36.0-46.0 [facility] Comment on above: Order Comment: Speci men Type: BLOOD SPECIMENOrdering Facility: [facility] Address: [address] [place] [address] Performed By: #### 5 8410-2 ####[facility] LABORATORYCLIA [id number] [place] [id number] [place] Hemoglobin (Bld) [Mass/Vol] 11.7 g/dL Normal 11.5-15.5 [facility] Comment on above: Order Comment: Speci men Type: BLOOD SPECIMENOrdering Facility: [facility] Address: [address] [place] [address] Performed By: #### 5 8410-2 ####[facility] LABORATORYCLIA [id number] [place] [id number] [place] MCH (RBC) [Entitic mass] 27.4 pg Normal 26.0-34.0 [facility] Comment on above: Order Comment: Speci men Type: BLOOD SPECIMENOrdering Facility: [facility] Address: [address] [place] [address] Performed By: #### 5 8410-2 ####[facility] LABORATORYCLIA [id number] [place] [id number] [place] MCHC (RBC) [Mass/Vol] 31.8 g/dL Normal 30.5-36.0 [facility] Comment on above: Order Comment: Speci men Type: BLOOD SPECIMENOrdering Facility: [facility] Address: [address] [place] [address] Performed By: #### 5 8410-2 ####[facility] LABORATORYCLIA [id number] [place] [address] [place] MCV (RBC) [Entitic vol] 86.2 fL Normal 80.0-100.0 [facility] Comment on above: Order Comment: Speci men Type: BLOOD SPECIMENOrdering Facility: [facility] Address: [address] [place] [address] Performed By: #### 5 8410-2 ####[facility] LABORATORYCLIA [id number] [place] [address] [place] Nucleated RBC (Bld) [#/Vol] 10*3/uL Normal <0.01 [facility] Comment on above: Order Comment: Speci men Type: BLOOD SPECIMENOrdering Facility: [facility] Address: [address] [place] [address] Performed By: #### 5 8410-2 ####[facility] LABORATORYCLIA [id number] [place] [address] [place] Platelet mean volume (Bld) [Entitic vol] 9.2 fL Normal 9.0-12.7 [facility] Comment on above: Order Comment: Speci men Type: BLOOD SPECIMENOrdering Facility: [facility] Address: [address] [place] [address] Performed By: #### 5 8410-2 ####[facility] LABORATORYCLIA [id number] [place] [id number] [facility] OF [place] Platelets (Bld) [#/Vol] 97 10*3/uL Low 150-400 [facility] Comment on above: Order Comment: Speci men Type: BLOOD SPECIMENOrdering Facility: [facility] Address: [address] [place] [address] Performed By: #### 5 8410-2 ####[facility] LABORATORYCLIA [id number] [place] [id number] [place] RBC (Bld) [#/Vol] 4.27 10*6/uL Normal 3.90-5.20 [facility] Comment on above: Order Comment: Speci men Type: BLOOD SPECIMENOrdering Facility: [facility] Address: [address] [place] [address] Performed By: #### 5 8410-2 ####[facility] LABORATORYCLIA [id number] [place] [id number] [facility] OF [place] WBC (Bld) [#/Vol] 5.77 10*3/uL Normal 3.70-11.00 [facility] Comment on above: Order Comment: Speci men Type: BLOOD SPECIMENOrdering Facility: [facility] Address: [address] [place] [address] Performed By: #### 5 8410-2 ####[facility] LABORATORYCLIA [id number] [place] [id number] [place] Erythrocyte distribution width (RBC) [Ratio] 16.3 % High 11.5-15.0 [facility] Comment on above: Order Comment: Speci men Type: BLOOD SPECIMENOrdering Facility: [facility] Address: [address] [place] [address] Performed By: #### 5 8410-2 ####[facility] LABORATORYCLIA [id number] [place] [id number] [facility] [place] Hematocrit (Bld) [Volume fraction] 36.0 % Normal 36.0-46.0 [facility] Comment on above: Order Comment: Speci men Type: BLOOD SPECIMENOrdering Facility: [facility] Address: [facility] [place] [address] Performed By: #### 5 8410-2 ####[facility] LABORATORYCLIA [id number] [place] [address] [place] Hemoglobin (Bld) [Mass/Vol] 12.1 g/dL Normal 11.5-15.5 [facility] Comment on above: Order Comment: Speci men Type: BLOOD SPECIMENOrdering Facility: [facility] Address: [address] [place] [address] Performed By: #### 5 8410-2 ####[facility] LABORATORYCLIA [id number] [place] [address] [place] MCH (RBC) [Entitic mass] 28.3 pg Normal 26.0-34.0 [facility] Comment on above: Order Comment: Speci men Type: BLOOD SPECIMENOrdering Facility: [facility] Address: [address] [place] [address] Performed By: #### 5 8410-2 ####[facility] LABORATORYCLIA [id number] [address] [place] MCHC (RBC) [Mass/Vol] 33.6 g/dL Normal 30.5-36.0 [facility] Comment on above: Order Comment: Speci men Type: BLOOD SPECIMENOrdering Facility: [facility] Address: [address] [place] [address] Performed By: #### 5 8410-2 ####[facility] LABORATORYCLIA [id number] [place] [address] [place] MCV (RBC) [Entitic vol] 84.1 fL Normal 80.0-100.0 [facility] Comment on above: Order Comment: Speci men Type: BLOOD SPECIMENOrdering Facility: [facility] Address: [address] [place] [address] Performed By: #### 5 8410-2 ####[facility] LABORATORYCLIA [id number] [place] [address] [place] Nucleated RBC (Bld) [#/Vol] 10*3/uL Normal <0.01 [facility] Comment on above: Order Comment: Speci men Type: BLOOD SPECIMENOrdering Facility: [facility] Address: [address] [place] [address] Performed By: #### 5 8410-2 ####[facility] LABORATORYCLIA [id number] [place] [id number] [place] Platelet mean volume (Bld) [Entitic vol] 10.0 fL Normal 9.0-12.7 [facility] Comment on above: Order Comment: Speci men Type: BLOOD SPECIMENOrdering Facility: [facility] Address: [address] [place] [address] Performed By: #### 5 8410-2 ####[facility] LABORATORYCLIA [id number] [place] [id number] [place] Platelets (Bld) [#/Vol] 107 10*3/uL Low 150-400 [facility] Comment on above: Order Comment: Speci men Type: BLOOD SPECIMENOrdering Facility: [facility] Address: [address] [place] [address] Result Comment: No c lot detected. Performed By: #### 5 8410-2 ####[facility] LABORATORYCLIA [id number] [place] [id number] [place] RBC (Bld) [#/Vol] 4.28 10*6/uL Normal 3.90-5.20 [facility] Comment on above: Order Comment: Speci men Type: BLOOD SPECIMENOrdering Facility: [facility] Address: [address] [place] [address] Performed By: #### 5 8410-2 ####[facility] LABORATORYCLIA [id number] [place] [id number] [place] WBC (Bld) [#/Vol] 6.15 10*3/uL Normal 3.70-11.00 [facility] Comment on above: Order Comment: Speci men Type: BLOOD SPECIMENOrdering Facility: [facility] Address: [address] [place] [address] [place] [address] Performed By: #### 5 8410-2 ####[facility] LABORATORYCLIA [id number] [place] [id number] [place] CK SerPl-cCncon 10-23-2023 CK [Catalytic activity/Vol] 88 U/L Normal 28-152 [facility] Comment on above: Order Comment: Speci men Type: BLOOD SPECIMENOrdering Facility: [facility] Address: [address] [place] [address] Performed By: #### 1 920-8, 96248-8, 2157-6 ####[facility] LABORATORYCLIA [id number] [place] [id number] [place] CK [Catalytic activity/Vol] Normal [facility] Comment on above: Order Comment: Speci men Type: BLOOD SPECIMENOrdering Facility: [facility] Address: [address] [place] [address] Result Comment: Unab le to assay due to interference from hemolysis. Suggest reorder as clinically indicated. Performed By: #### 2 157-6, 61038-5, 33552-8 ####[facility] LABORATORYCLIA [id number] [place] [id number] [place] Comprehensive metabolic 2000 panelon 10-23-2023 Albumin [Mass/Vol] 2.9 g/dL Low 3.2-5.0 [facility] Comment on above: Order Comment: Speci men Type: BLOOD SPECIMENOrdering Facility: [facility] Address: [address] [place] [id number] Performed By: #### 2 157-6, 53516-4, 06246-1 ####[facility] LABORATORYCLIA [id number] [place] [id number] [place] ALP [Catalytic activity/Vol] 67 U/L Normal 45-117 [facility] Comment on above: Order Comment: Speci men Type: BLOOD SPECIMENOrdering Facility: [facility] Address: [address] [place], [place] [address] Performed By: #### 2 157-6, 77988-0, ####[facility] LABORATORYCLIA [id number] [place] [address] [place] ALT [Catalytic activity/Vol] 13 U/L Normal 13-61 [facility] Comment on above: Order Comment: Speci men Type: BLOOD SPECIMENOrdering Facility: [facility] Address: [address] [place] [address] Result Comment: Resu lts may be falsely depressed after the administration of Sulfasalazine and/or Sulfapyridine. Performed By: #### 2 157-6, 57520-7, ####[facility] LABORATORYCLIA [id number] [place] [id number] [place] Anion gap [Moles/Vol] 5 mmol/L Normal 5-16 [facility] Comment on above: Order Comment: Speci [facility] Type: BLOOD SPECIMENOrdering Facility: [facility] Address: [address] [place] [address] Performed By: #### 2 157-6, 99064-2, ####[facility] LABORATORYCLIA [id number] [place] [id number] [place] AST [Catalytic activity/Vol] Normal [facility] Comment on above: Order Comment: Speci men Type: BLOOD SPECIMENOrdering Facility: [facility] Address: [address] [place] [address] Result Comment: Unab le to assay due to interference from hemolysis. Suggest reorder as clinically indicated.Results may be falsely depressed after the administration of Sulfasalazine and/or Sulfapyridine. Performed By: #### 2 157-6, 27912-8, ####[facility] LABORATORYCLIA [id number] [place] [id number] [place] Bilirubin [Mass/Vol] 0.8 mg/dL Normal 0.2-1.0 [facility] Comment on above: Order Comment: Speci [facility] Type: BLOOD SPECIMENOrdering Facility: [facility] Address: [address] [place] [address] Performed By: #### 2 157-6, 05362-9, 75976-5 ####[facility] LABORATORYCLIA [id number] [place] [address] [place] Calcium [Mass/Vol] 9.9 mg/dL Normal 8.5-10.5 [facility] Comment on above: Order Comment: Speci men Type: BLOOD SPECIMENOrdering Facility: [facility] Address: [address] [place] [address] Performed By: #### 2 157-6, 53288-6, ####[facility] LABORATORYCLIA [id number] [place] [address] [place] Chloride [Moles/Vol] 103 mmol/L Normal 98-107 [facility] Comment on above: Order Comment: Speci men Type: BLOOD SPECIMENOrdering Facility: [facility] Address: [address] [place] [address] Performed By: #### 2 157-6, 86895-8, ####[facility] LABORATORYCLIA [id number] [place] [id number] [place] CO2 [Moles/Vol] 27 mmol/L Normal 21-32 [facility] Comment on above: Order Comment: Speci men Type: BLOOD SPECIMENOrdering Facility: [facility] Address: [address] [place] [address] Performed By: #### 2 157-6, 96776-7, ####[facility] LABORATORYCLIA [id number] [place] [id number] [place] Creatinine [Mass/Vol] Normal [facility] Comment on above: Order Comment: Speci men Type: BLOOD SPECIMENOrdering Facility: [facility] Address: [address] [place] [address] Result Comment: Unab le to assay due to interference from hemolysis. Suggest reorder as clinically indicated. Performed By: #### 2 157-6, 28344-2, 70219-0 ####[facility] LABORATORYCLIA [id number] [place] [id number] [place] Creatinine and Glomerular filtration rate.predicted panel (S/P/Bld) Normal [facility] Comment on above: Order Comment: Brady smith Type: BLOOD SPECIMENOrdering Facility: [facility] Address: [address] [place] [address] Result Comment: Esme mated Glomerular Filtration Rate (eGFR) is calculated using the 2020 CKD-EPI creatinine equation. This equation utilizes serum creatinine, sex, and age as parameters. The creatinine assay has traceable calibration to isotope dilution-mass spectrometry. Refer to KDIGO guidelines for clinical interpretation. In patients with unstable renal function, e.g. those with acute kidney injury, the eGFR may not accurately reflect actual GFR. Performed By: #### 2 157-6, 76824-0, 87306-3 ####[facility] LABORATORYCLIA [id number] [place] [id number] [place] Glucose [Mass/Vol] 69 mg/dL Low 70-100 [facility] Comment on above: Order Comment: Brady smith Type: BLOOD SPECIMENOrdering Facility: [facility] Address: [address] [place] [address] Result Comment: The [place] [employer] (ADA) provides guidance for cutoff values for fasting glucose and random glucose. The ADA defines fasting as no caloric intake for at least 8 hours. Fasting plasma glucose results between 100 to 125 mg/dL indicate increased risk for diabetes (prediabetes).Fasting plasma glucose results greater than or equal to 126 mg/dL meet the criteria for diagnosis of diabetes. In the absence of unequivocal hyperglycemia, results should be confirmed by repeat testing. In a patient with classic symptoms of hyperglycemia or hyperglycemic crisis, random plasma glucose results greater than or equal to 200 mg/dL meet the criteria for diagnosis of diabetes.Reference: Standards of Medical Care in Diabetes 2016, [place] [employer]. Diabetes Care. 2016.39(Suppl 1).Results may be falsely elevated after the administration of Sulfapyridine.Results may be falsely depressed after the administration of Sulfasalazine. Performed By: #### 2 157-6, 48079-7, 64078-5 ####[facility] LABORATORYCLIA [id number] [place] [id number] [place] Potassium [Moles/Vol] Normal [facility] Comment on above: Order Comment: Speci men Type: BLOOD SPECIMENOrdering Facility: [facility] Address: [address] [place] [address] Result Comment: Unab le to assay due to interference from hemolysis. Suggest reorder as clinically indicated. &XA&NOTIFIED WILIAM R, HEMOLYZED K,BUN,ECREA,AST, CK Performed By: #### 2 157-6, 55968-0, 50809-5 ####[facility] LABORATORYCLIA [id number] [place] [id number] [place] Protein [Mass/Vol] 6.0 g/dL Normal 6.0-8.5 [facility] Comment on above: Order Comment: Speci men Type: BLOOD SPECIMENOrdering Facility: [facility] Address: [address] [place] [address] Performed By: #### 2 157-6, 43080-7, ####[facility] LABORATORYCLIA [id number] [place] [id number] [place] Sodium [Moles/Vol] 135 mmol/L Low 136-145 [facility] Comment on above: Order Comment: Speci men Type: BLOOD SPECIMENOrdering Facility: [facility] Address: [address] [place] [address] Performed By: #### 2 157-6, 85097-1, ####[facility] LABORATORYCLIA [id number] [place] [id number] [place] Urea nitrogen [Mass/Vol] Normal [facility] Comment on above: Order Comment: Speci men Type: BLOOD SPECIMENOrdering Facility: [facility] Address: [address] [place] [address] Result Comment: Unab le to assay due to interference from hemolysis. Suggest reorder as clinically indicated. Performed By: #### 2 157-6, 04376-2, 63940-0 ####[facility] LABORATORYCLIA [id number] [place] [id number] [place] Magnesium SerPl-mCncon 10-22 Magnesium [Mass/Vol] 1.7 mg/dL Normal 1.6-2.6 [facility] Comment on above: Order Comment: Speci men Type: BLOOD SPECIMENOrdering Facility: [facility] Address: [address] [place], [place] [address] [id number] Performed By: #### 2 157-6, 67873-4, 78425-0 ####[facility] LABORATORYCLIA [id number] [place] [id number] [place] NURSING PROGon 10-23-2023 NURSING PROG Normal [facility] THERAPY NTon 10-23-2023 THERAPY NT [facility] THERAPY NT [facility] Basic metabolic 2000 panelon 10-22-2023 Anion gap [Moles/Vol] 7 mmol/L Normal 5-16 [facility] Comment on above: Order Comment: Speci men Type: BLOOD SPECIMENOrdering Facility: [facility] Address: [address] [place], [place] [address] Performed By: #### 2 4321-2, 2156-08 ####[facility] LABORATORYCLIA [id number] [place] [id number] [place] Calcium [Mass/Vol] 10.4 mg/dL Normal 8.5-10.5 [facility] Comment on above: Order Comment: Speci men Type: BLOOD SPECIMENOrdering Facility: [facility] Address: [address] [place] [address] [place] [id number] Performed By: #### 2 4321-2, 2156-08 ####[facility] LABORATORYCLIA [id number] [place] [id number] [place] Chloride [Moles/Vol] 103 mmol/L Normal 98-107 [facility] Comment on above: Order Comment: Speci men Type: BLOOD SPECIMENOrdering Facility: [facility] Address: [address] [place] [address] [place] [address] Performed By: #### 2 4321-2, 2156-08 ####[facility] LABORATORYCLIA [id number] [place] [address] [place] CO2 [Moles/Vol] 28 mmol/L Normal 21-32 [facility] Comment on above: Order Comment: Brady smith Type: BLOOD SPECIMENOrdering Facility: [facility] Address: [address] [place] [address] Performed By: #### 2 4321-2, 2156-08 ####[facility] LABORATORYCLIA [id number] [place] [id number] [place] Creatinine [Mass/Vol] 1.16 mg/dL High 0.51-0.95 [facility] Comment on above: Order Comment: Speci men Type: BLOOD SPECIMENOrdering Facility: [facility] Address: [address] [place] [address] Result Comment: Linn ents receiving either N-Acetylcysteine (NAC) or Metamizole prior to venipuncture, may have falsely depressed results. Performed By: #### 2 4322, 2156-08 ####[facility] LABORATORYCLIA [id number] [address] Creatinine and Glomerular filtration rate.predicted panel (S/P/Bld) 47 mL/min/1.73m??? Low >=60 [facility] Comment on above: Order Comment: Brady smith Type: BLOOD SPECIMENOrdering Facility: [facility] Address: [address] [place] [address] Result Comment: Esme mated Glomerular Filtration Rate (eGFR) is calculated using the 2020 CKD-EPI creatinine equation. This equation utilizes serum creatinine, sex, and age as parameters. The creatinine assay has traceable calibration to isotope dilution-mass spectrometry. Refer to KDIGO guidelines for clinical interpretation. In patients with unstable renal function, e.g. those with acute kidney injury, the eGFR may not accurately reflect actual GFR. Performed By: #### 2 4321-2, 2156-08 ####[facility] LABORATORYCLIA [id number] [place] [address] [place] Glucose [Mass/Vol] 85 mg/dL Normal 70-100 [facility] Comment on above: Order Comment: Brady smith Type: BLOOD SPECIMENOrdering Facility: [facility] Address: [address] [place] [address] Result Comment: The [place] [employer] (ADA) provides guidance for cutoff values for fasting glucose and random glucose. The ADA defines fasting as no caloric intake for at least 8 hours. Fasting plasma glucose results between 100 to 125 mg/dL indicate increased risk for diabetes (prediabetes).Fasting plasma glucose results greater than or equal to 126 mg/dL meet the criteria for diagnosis of diabetes. In the absence of unequivocal hyperglycemia, results should be confirmed by repeat testing. In a patient with classic symptoms of hyperglycemia or hyperglycemic crisis, random plasma glucose results greater than or equal to 200 mg/dL meet the criteria for diagnosis of diabetes.Reference: Standards of Medical Care in Diabetes 2016, [place] [employer]. Diabetes Care. 2016.39(Suppl 1).Results may be falsely elevated after the administration of Sulfapyridine.Results may be falsely depressed after the administration of Sulfasalazine. Performed By: #### 2 432-, 2156-08 ####[facility] LABORATORYCLIA [id number] [place] [address] [place] Potassium [Moles/Vol] 3.6 mmol/L Normal 3.5-5.1 [facility] Comment on above: Order Comment: Speci men Type: BLOOD SPECIMENOrdering Facility: [facility] Address: [address] [place] [address] Performed By: #### 2 4320-04, 2156-08 ####[facility] LABORATORYCLIA [id number] [place] [address] [place] Sodium [Moles/Vol] 138 mmol/L Normal 136-145 [facility] Comment on above: Order Comment: Speci men Type: BLOOD SPECIMENOrdering Facility: [facility] Address: [address] [place] [address] Performed By: #### 2 4320-04, 2156-08 ####[facility] LABORATORYCLIA [id number] [place] [address] [place] Urea nitrogen [Mass/Vol] 20 mg/dL Normal 7-26 [facility] Comment on above: Order Comment: Speci men Type: BLOOD SPECIMENOrdering Facility: [facility] Address: [address] [place] [address] Performed By: #### 2 4321-2, 2156-08 ####[facility] LABORATORYCLIA [id number] [place] [address] [place] CASE MGT INIT ASSESon 2023 CASE MGT INIT ASSES Normal [facility] CK SerPl-cCncon 10-22-2023 CK [Catalytic activity/Vol] 251 U/L High 28-152 [facility] Comment on above: Order Comment: Speci men Type: BLOOD SPECIMENOrdering Facility: [facility] Address: [facility] [place] [address] Performed By: #### 2 4321-2, 2156-08 ####[facility] LABORATORYCLIA [id number] [place] [address] [place] THERAPY NTon 10-22-2023 THERAPY NT Normal [facility] Basic metabolic 2000 panelon 10-21-2023 Anion gap [Moles/Vol] 8 mmol/L Normal 5-16 [facility] Comment on above: Order Comment: Speci men Type: BLOOD SPECIMENOrdering Facility: [facility] Address: [address] [place], [place] [address] [address] Performed By: #### 2 4321-2, 6, 62289-2, 89265-1 ####[facility] LABORATORYCLIA [id number] [place] [id number] [place] Calcium [Mass/Vol] 11.4 mg/dL High 8.5-10.5 [facility] Comment on above: Order Comment: Speci men Type: BLOOD SPECIMENOrdering Facility: [facility] Address: [address] [place], [place] [address] [address] Performed By: #### 2 4321-2, 6, 72203-6, 01588-0 ####[facility] LABORATORYCLIA [id number] [place] [id number] [place] Chloride [Moles/Vol] 96 mmol/L Low 98-107 [facility] Comment on above: Order Comment: Speci men Type: BLOOD SPECIMENOrdering Facility: [facility] Address: [address] [place] [address] Performed By: #### 2 4321-2, 7-6, 78707-4, 36879-3 ####[facility] LABORATORYCLIA [id number] [place] [id number] [place] CO2 [Moles/Vol] 32 mmol/L Normal 21-32 [facility] Comment on above: Order Comment: Speci men Type: BLOOD SPECIMENOrdering Facility: [facility] Address: [address] [place], [place] [address] Performed By: #### 2 4321-2, 7-6, 66900-6, ####[facility] LABORATORYCLIA [id number] [place] [id number] [place] Creatinine [Mass/Vol] 1.52 mg/dL High 0.51-0.95 [facility] Comment on above: Order Comment: Speci men Type: BLOOD SPECIMENOrdering Facility: [facility] Address: [address] [place] [address] Result Comment: Linn ents receiving either N-Acetylcysteine (NAC) or Metamizole prior to venipuncture, may have falsely depressed results. Performed By: #### 2 4321-2, 7-6, 82245-9, ####[facility] LABORATORYCLIA [id number] [place] [id number] [facility] Creatinine and Glomerular filtration rate.predicted panel (S/P/Bld) 34 mL/min/1.73m??? Low >=60 [facility] Comment on above: Order Comment: Speci men Type: BLOOD SPECIMENOrdering Facility: [facility] Address: [address] [place], [place] [address] Result Comment: Esme mated Glomerular Filtration Rate (eGFR) is calculated using the 2020 CKD-EPI creatinine equation. This equation utilizes serum creatinine, sex, and age as parameters. The creatinine assay has traceable calibration to isotope dilution-mass spectrometry. Refer to KDIGO guidelines for clinical interpretation. In patients with unstable renal function, e.g. those with acute kidney injury, the eGFR may not accurately reflect actual GFR. Performed By: #### 2 4321-2, 2156-6, 96522-8, ####[facility] LABORATORYCLIA [id number] [place] [address] [place] Glucose [Mass/Vol] 102 mg/dL High 70-100 [facility] Comment on above: Order Comment: Brady smith Type: BLOOD SPECIMENOrdering Facility: [facility] Address: [address] [place] [address] Result Comment: The [place] [employer] (ADA) provides guidance for cutoff values for fasting glucose and random glucose. The ADA defines fasting as no caloric intake for at least 8 hours. Fasting plasma glucose results between 100 to 125 mg/dL indicate increased risk for diabetes (prediabetes).Fasting plasma glucose results greater than or equal to 126 mg/dL meet the criteria for diagnosis of diabetes. In the absence of unequivocal hyperglycemia, results should be confirmed by repeat testing. In a patient with classic symptoms of hyperglycemia or hyperglycemic crisis, random plasma glucose results greater than or equal to 200 mg/dL meet the criteria for diagnosis of diabetes.Reference: Standards of Medical Care in Diabetes 2016, [place] [employer]. Diabetes Care. 2016.39(Suppl 1).Results may be falsely elevated after the administration of Sulfapyridine.Results may be falsely depressed after the administration of Sulfasalazine. Performed By: #### 2 4321-2, 2156-6, 90025-4, ####[facility] LABORATORYCLIA [id number] [place] [id number] [place] Potassium [Moles/Vol] 4.3 mmol/L Normal 3.5-5.1 [facility] Comment on above: Order Comment: Brady smith Type: BLOOD SPECIMENOrdering Facility: [facility] Address: [address] [place] [address] Performed By: #### 2 4321-2, 2156-6, 99941-2, ####[facility] LABORATORYCLIA [id number] [place] [id number] [place] Sodium [Moles/Vol] 136 mmol/L Normal 136-145 [facility] Comment on above: Order Comment: Speci men Type: BLOOD SPECIMENOrdering Facility: [facility] Address: [address] [place] [address] Performed By: #### 2 4321-2, 2156-6, 24249-8, 20826-1 ####[facility] LABORATORYCLIA [id number] [place] [id number] [place] Urea nitrogen [Mass/Vol] 22 mg/dL Normal - [facility] Comment on above: Order Comment: Speci men Type: BLOOD SPECIMENOrdering Facility: [facility] Address: [address] [place] [address] Performed By: #### 2 4321-2, 2156-08, 14012-7, ####[facility] LABORATORYCLIA [id number] [place] [id number] [place] CBC W Auto Differential pane l (Bld)on 10-21-2023 Basophils (Bld) [#/Vol] 10*3/uL Normal <0.11 [facility] Comment on above: Order Comment: Speci men Type: BLOOD SPECIMENOrdering Facility: [facility] Address: [address] [place] [address] Performed By: #### 5 7021-8 ####[facility] LABORATORYCLIA [id number] [place] [id number] [place] Basophils/100 WBC (Bld) 0.1 % Normal [facility] Comment on above: Order Comment: Speci men Type: BLOOD SPECIMENOrdering Facility: [facility] Address: [address] [place] [address] Performed By: #### 5 7021-8 ####[facility] LABORATORYCLIA [id number] [address] STATES [facility] Differential cell count method Nom (Bld) Auto Normal [facility] Comment on above: Order Comment: Speci men Type: BLOOD SPECIMENOrdering Facility: [facility] Address: [address] [place] [address] Performed By: #### 5 7021-8 ####[facility] LABORATORYCLIA [id number] [place] [id number] [place] Eosinophils (Bld) [#/Vol] 0.06 10*3/uL Normal <0.46 [facility] Comment on above: Order Comment: Speci men Type: BLOOD SPECIMENOrdering Facility: [facility] Address: [address] [place] [address] Performed By: #### 5 7021-8 ####[facility] LABORATORYCLIA [id number] [place] [address] [place] Eosinophils/100 WBC (Bld) 0.4 % Normal [facility] Comment on above: Order Comment: Speci men Type: BLOOD SPECIMENOrdering Facility: [facility] Address: [address] [place] [address] Performed By: #### 5 7021-8 ####[facility] LABORATORYCLIA [id number] [address] [place] Erythrocyte distribution width (RBC) [Ratio] 16.1 % High 11.5-15.0 [facility] Comment on above: Order Comment: Speci men Type: BLOOD SPECIMENOrdering Facility: [facility] Address: [address] [place] [address] Performed By: #### 5 7021-8 ####[facility] LABORATORYCLIA [id number] [place] [address] [place] Hematocrit (Bld) [Volume fraction] 41.4 % Normal 36.0-46.0 [facility] Comment on above: Order Comment: Speci men Type: BLOOD SPECIMENOrdering Facility: [facility] Address: [address] [place] [address] Performed By: #### 5 7021-8 ####[facility] LABORATORYCLIA [id number] [place] [id number] [place] Hemoglobin (Bld) [Mass/Vol] 13.9 g/dL Normal 11.5-15.5 [facility] Comment on above: Order Comment: Speci men Type: BLOOD SPECIMENOrdering Facility: [facility] Address: [address] [place] [address] Performed By: #### 5 7021-8 ####[facility] LABORATORYCLIA [id number] [address] [place] Immature granulocytes (Bld) [#/Vol] 0.05 10*3/uL Normal <0.10 [facility] Comment on above: Order Comment: Speci men Type: BLOOD SPECIMENOrdering Facility: [facility] Address: [address] [place] [address] Performed By: #### 5 7021-8 ####[facility] LABORATORYCLIA [id number] [address] Immature granulocytes/100 WBC (Bld) 0.4 % Normal [facility] Comment on above: Order Comment: Speci men Type: BLOOD SPECIMENOrdering Facility: [facility] Address: [address] [place] [address] Performed By: #### 5 7021-8 ####[facility] LABORATORYCLIA [id number] [place] [address] [place] Lymphocytes (Bld) [#/Vol] 1.52 10*3/uL Normal 1.00-4.00 [facility] Comment on above: Order Comment: Speci men Type: BLOOD SPECIMENOrdering Facility: [facility] Address: [address] [place] [address] Performed By: #### 5 7021-8 ####[facility] LABORATORYCLIA [id number] [address] [place] Lymphocytes/100 WBC (Bld) 10.9 % Normal [facility] Comment on above: Order Comment: Speci men Type: BLOOD SPECIMENOrdering Facility: [facility] Address: [address] [place] [address] Performed By: #### 5 7021-8 ####[facility] LABORATORYCLIA [id number] [place] [address] [place] MCH (RBC) [Entitic mass] 27.6 pg Normal 26.0-34.0 [facility] Comment on above: Order Comment: Speci men Type: BLOOD SPECIMENOrdering Facility: [facility] Address: [address] [place] [address] Performed By: #### 5 7021-8 ####[facility] LABORATORYCLIA [id number] [place] [id number] [place] MCHC (RBC) [Mass/Vol] 33.6 g/dL Normal 30.5-36.0 [facility] Comment on above: Order Comment: Speci men Type: BLOOD SPECIMENOrdering Facility: [facility] Address: [address] [place] [address] Performed By: #### 5 7021-8 ####[facility] LABORATORYCLIA [id number] [place] [address] [place] MCV (RBC) [Entitic vol] 82.1 fL Normal 80.0-100.0 [facility] Comment on above: Order Comment: Speci men Type: BLOOD SPECIMENOrdering Facility: [facility] Address: [address] [place] [address] Performed By: #### 5 7021-8 ####[facility] LABORATORYCLIA [id number] [address] [place] Monocytes (Bld) [#/Vol] 1.66 10*3/uL High <0.87 [facility] Comment on above: Order Comment: Speci men Type: BLOOD SPECIMENOrdering Facility: [facility] Address: [address] [place] [address] Performed By: #### 5 7021-8 ####[facility] LABORATORYCLIA [id number] [address] [place] Monocytes/100 WBC (Bld) 11.9 % Normal [facility] Comment on above: Order Comment: Speci men Type: BLOOD SPECIMENOrdering Facility: [facility] Address: [address] [place] [address] Performed By: #### 5 7021-8 ####[facility] LABORATORYCLIA [id number] [place] [address] [place] Neutrophils (Bld) [#/Vol] 10.67 10*3/uL High 1.45-7.50 [facility] Comment on above: Order Comment: Speci men Type: BLOOD SPECIMENOrdering Facility: [facility] Address: [address] [place] [address] Performed By: #### 5 7021-8 ####[facility] LABORATORYCLIA [id number] [place] [id number] [place] Neutrophils/100 WBC (Bld) 76.3 % Normal [facility] Comment on above: Order Comment: Speci men Type: BLOOD SPECIMENOrdering Facility: [facility] Address: [address] [place] [address] Performed By: #### 5 7021-8 ####[facility] LABORATORYCLIA [id number] [place] [address] [place] Nucleated RBC (Bld) [#/Vol] 10*3/uL Normal <0.01 [facility] Comment on above: Order Comment: Speci men Type: BLOOD SPECIMENOrdering Facility: [facility] Address: [address] [place] [address] Performed By: #### 5 7021-8 ####[facility] LABORATORYCLIA [id number] [place] [id number] [place] Nucleated RBC/100 WBC (Bld) [Ratio] 0.0 /100 WBC Normal [facility] Comment on above: Order Comment: Speci men Type: BLOOD SPECIMENOrdering Facility: [facility] Address: [address] [place] [address] Performed By: #### 5 7021-8 ####[facility] LABORATORYCLIA [id number] [place] [address] [place] Platelet mean volume (Bld) [Entitic vol] 9.4 fL Normal 9.0-12.7 [facility] Comment on above: Order Comment: Speci men Type: BLOOD SPECIMENOrdering Facility: [facility] Address: [address] [place], [place] [address] Performed By: #### 5 7021-8 ####[facility] LABORATORYCLIA [id number] [place] [id number] [facility] Platelets (Bld) [#/Vol] 142 10*3/uL Low 150-400 [facility] Comment on above: Order Comment: Speci men Type: BLOOD SPECIMENOrdering Facility: [facility] Address: [address] [place] [address] Performed By: #### 5 7021-8 ####[facility] LABORATORYCLIA [id number] [place] [id number] [facility] RBC (Bld) [#/Vol] 5.04 10*6/uL Normal 3.90-5.20 [facility] Comment on above: Order Comment: Speci men Type: BLOOD SPECIMENOrdering Facility: [facility] Address: [address] [place] [address] Performed By: #### 5 7021-8 ####[facility] LABORATORYCLIA [id number] [place] [id number] [facility] [place] WBC (Bld) [#/Vol] 13.97 10*3/uL High 3.70-11.00 [facility] Comment on above: Order Comment: Speci men Type: BLOOD SPECIMENOrdering Facility: [facility] Address: [address] [place] [address] Performed By: #### 5 7021-8 ####[facility] LABORATORYCLIA [id number] [place] [id number] [facility] [place] CK SerPl-cCncon 10-21-2023 CK [Catalytic activity/Vol] 673 U/L High 28-152 [facility] Comment on above: Order Comment: Speci men Type: BLOOD SPECIMENOrdering Facility: [facility] Address: [address] [place] [address] Performed By: #### 2 4321-2, 2157-6, 30385-3, 54879-0 ####[facility] LABORATORYCLIA [id number] [place] [id number] [place] BRAIN WO IVCONon 10-21-[address] BRAIN WO IVCON Normal [facility] CT CERVICAL SPINE WO IVCONon 10-21-2023 CT CERVICAL SPINE WO IVCON Normal [facility] ECG COMPLETEon 10-21-2023 ECG COMPLETE Normal [facility] ED PROV NOTEon 10-21-2023 ED PROV NOTE Normal [facility] HIGH SENSITIVITY TROPONIN Io n 10-21-2023 Tropinin I.cardiac panel High sensitivity method 14.3 pg/mL Normal 0.0-34.0 [facility] Comment on above: Order Comment: Speci men Type: BLOOD SPECIMENOrdering Facility: [facility] Address: [address] [place] [address] Performed By: #### H TERRI ####[facility] LABORATORYCLIA [id number] [place] [id number] [place] HISTORY PHYSICALon HISTORY PHYSICAL Normal [facility] Hepatic function 2000 panelo n 10-21-2023 Albumin [Mass/Vol] 3.5 g/dL Normal 3.2-5.0 [facility] Comment on above: Order Comment: Speci men Type: BLOOD SPECIMENOrdering Facility: [facility] Address: [address] [place] [address] Performed By: #### 2 4321-2, 2157-6, 74547-9, 38849-8 ####[facility] LABORATORYCLIA [id number] [place] [id number] [place] ALP [Catalytic activity/Vol] 96 U/L Normal 45-117 [facility] Comment on above: Order Comment: Speci men Type: BLOOD SPECIMENOrdering Facility: [facility] Address: [address] [place] [address] Performed By: #### 2 4321-2, 2157-6, 91246-2, 57691-9 ####[facility] LABORATORYCLIA [id number] [place] [id number] [place] ALT [Catalytic activity/Vol] 19 U/L Normal 13-61 [facility] Comment on above: Order Comment: Speci men Type: BLOOD SPECIMENOrdering Facility: [facility] Address: [address] [place] [address] Result Comment: Resu lts may be falsely depressed after the administration of Sulfasalazine and/or Sulfapyridine. Performed By: #### 2 4321-2, 2156-6, 78974-7, ####[facility] LABORATORYCLIA [id number] [place] [address] [place] AST [Catalytic activity/Vol] 40 U/L High 8-34 [facility] Comment on above: Order Comment: Speci men Type: BLOOD SPECIMENOrdering Facility: [facility] Address: [address] [place] [address] Result Comment: Resu lts may be falsely depressed after the administration of Sulfasalazine and/or Sulfapyridine. Performed By: #### 2 4321-2, 2156-08, 28290-8, ####[facility] LABORATORYCLIA [id number] [place] [address] [place] Bilirubin [Mass/Vol] 1.7 mg/dL High 0.2-1.0 [facility] Comment on above: Order Comment: Speci men Type: BLOOD SPECIMENOrdering Facility: [facility] Address: [address] [place] [address] Performed By: #### 2 4321-2, 6, 35573-3, ####[facility] LABORATORYCLIA [id number] [address] [place] Bilirubin.conjugated [Mass/Vol] 0.5 mg/dL High 0.0-0.4 [facility] Comment on above: Order Comment: Speci men Type: BLOOD SPECIMENOrdering Facility: [facility] Address: [address] [place] [address] Performed By: #### 2 4321-2, 2156-6, 88503-8, ####[facility] LABORATORYCLIA [id number] [place] [address] [place] Protein [Mass/Vol] 7.2 g/dL Normal 6.0-8.5 [facility] Comment on above: Order Comment: Speci men Type: BLOOD SPECIMENOrdering Facility: [facility] Address: [address] [place] [address] Performed By: #### 2 4321-2, 2157-6, 16318-8, 84163-9 ####[facility] LABORATORYCLIA [id number] [place] [id number] [place] Magnesium SerPl-mCncon 10-20 Magnesium [Mass/Vol] 1.4 mg/dL Low 1.6-2.6 [facility] Comment on above: Order Comment: Speci men Type: BLOOD SPECIMENOrdering Facility: [facility] Address: [address] [place] [address] Performed By: #### 2 4321-2, 2157-6, 95042-0, 88089-9 ####[facility] LABORATORYCLIA [id number] [place] [address] [place] Urinalysis complete pnl Uron 10-21-2023 Urinalysis complete panel (U) Normal [facility] Comment on above: Order Comment: Speci men Type: URINE SPECIMENOrdering Facility: [facility] Address: [address] [place] [address] Performed By: #### 2 4356-8 ####[facility] LABORATORYCLIA [id number] [place] [address] [place] XR PELVIS 1V APon 10-21-2023 XR PELVIS 1V AP Normal [facility] CASE MANAGEMon 09-22-2023 CASE MANAGEM [facility] CASE MANAGEM Normal [facility] CASE MANAGEM [facility] CNDSon 09-22-2023 CNDS [facility] NUTRITIONon 09-22-2023 NUTRITION Normal [facility] THERAPY NTon 09-22-2023 THERAPY NT [facility] THERAPY NT [facility] Basic metabolic 2000 panelon 09-21-2023 Anion gap [Moles/Vol] 4 mmol/L Low 5-16 [facility] Comment on above: Order Comment: Speci men Type: BLOOD SPECIMENOrdering Facility: [facility] Address: [address] [place] [id number] Performed By: #### 2 4321-2, ####[facility] LABORATORYCLIA [id number] [place] [id number] [place] Calcium [Mass/Vol] 10.3 mg/dL Normal 8.5-10.5 [facility] Comment on above: Order Comment: Speci men Type: BLOOD SPECIMENOrdering Facility: [facility] Address: [address] [place] [address] Performed By: #### 2 4321-2, ####[facility] LABORATORYCLIA [id number] [place] [id number] [place] Chloride [Moles/Vol] 96 mmol/L Low 98-107 [facility] Comment on above: Order Comment: Speci men Type: BLOOD SPECIMENOrdering Facility: [facility] Address: [address] [place] [address] Performed By: #### 2 4321-2, ####[facility] LABORATORYCLIA [id number] [place] [id number] [place] CO2 [Moles/Vol] 32 mmol/L Normal 21-32 [facility] Comment on above: Order Comment: Speci men Type: BLOOD SPECIMENOrdering Facility: [facility] Address: [address] [place] [address] Performed By: #### 2 4321-2, ####[facility] LABORATORYCLIA [id number] [place] [id number] [place] Creatinine [Mass/Vol] 0.71 mg/dL Normal 0.51-0.95 [facility] Comment on above: Order Comment: Speci men Type: BLOOD SPECIMENOrdering Facility: [facility] Address: [address] [place] [address] Result Comment: Linn ents receiving either N-Acetylcysteine (NAC) or Metamizole prior to venipuncture, may have falsely depressed results. Performed By: #### 2 4321-2, 76128-5 ####[facility] LABORATORYCLIA [id number] [place] [id number] [place] Creatinine and Glomerular filtration rate.predicted panel (S/P/Bld) 84 mL/min/1.73m??? Normal >=60 [facility] Comment on above: Order Comment: Brady smith Type: BLOOD SPECIMENOrdering Facility: [facility] Address: [address] [place] [address] Result Comment: Esme mated Glomerular Filtration Rate (eGFR) is calculated using the 2020 CKD-EPI creatinine equation. This equation utilizes serum creatinine, sex, and age as parameters. The creatinine assay has traceable calibration to isotope dilution-mass spectrometry. Refer to KDIGO guidelines for clinical interpretation. In patients with unstable renal function, e.g. those with acute kidney injury, the eGFR may not accurately reflect actual GFR. Performed By: #### 2 4321-2, 22480-1 ####[facility] LABORATORYCLIA [id number] [place] [address] [place] Glucose [Mass/Vol] 83 mg/dL Normal 70-100 [facility] Comment on above: Order Comment: Brady smith Type: BLOOD SPECIMENOrdering Facility: [facility] Address: [address] [place] [address] Result Comment: The [place] [employer] (ADA) provides guidance for cutoff values for fasting glucose and random glucose. The ADA defines fasting as no caloric intake for at least 8 hours. Fasting plasma glucose results between 100 to 125 mg/dL indicate increased risk for diabetes (prediabetes).Fasting plasma glucose results greater than or equal to 126 mg/dL meet the criteria for diagnosis of diabetes. In the absence of unequivocal hyperglycemia, results should be confirmed by repeat testing. In a patient with classic symptoms of hyperglycemia or hyperglycemic crisis, random plasma glucose results greater than or equal to 200 mg/dL meet the criteria for diagnosis of diabetes.Reference: Standards of Medical Care in Diabetes 2016, [place] [employer]. Diabetes Care. 2016.39(Suppl 1).Results may be falsely elevated after the administration of Sulfapyridine.Results may be falsely depressed after the administration of Sulfasalazine. Performed By: #### 2 432-2, ####[facility] LABORATORYCLIA [id number] [place] [id number] [place] Potassium [Moles/Vol] 3.9 mmol/L Normal 3.5-5.1 [facility] Comment on above: Order Comment: Speci men Type: BLOOD SPECIMENOrdering Facility: [facility] Address: [address] [place] [address] Performed By: #### 2 2, ####[facility] LABORATORYCLIA [id number] [place] [address] [place] Sodium [Moles/Vol] 132 mmol/L Low 136-145 [facility] Comment on above: Order Comment: Speci men Type: BLOOD SPECIMENOrdering Facility: [facility] Address: [address] [place] [address] Performed By: #### 2 4320-04, ####[facility] LABORATORYCLIA [id number] [place] [address] [place] Urea nitrogen [Mass/Vol] 7 mg/dL Normal 7-26 [facility] Comment on above: Order Comment: Speci men Type: BLOOD SPECIMENOrdering Facility: [facility] Address: [address] [place] [address] Performed By: #### 2 2, ####[facility] LABORATORYCLIA [id number] [place] [id number] [place] Magnesium SerPl-mCncon 09-20 Magnesium [Mass/Vol] 1.9 mg/dL Normal 1.6-2.6 [facility] Comment on above: Order Comment: Speci men Type: BLOOD SPECIMENOrdering Facility: [facility] Address: [address] [place] [address] Performed By: #### 2 432-2, ####[facility] LABORATORYCLIA [id number] [place] [address] [place] Basic metabolic 2000 panelon 09-20-2023 Anion gap [Moles/Vol] 4 mmol/L Low 5-16 [facility] Comment on above: Order Comment: Speci men Type: BLOOD SPECIMENOrdering Facility: [facility] Address: [address] [place] [address] Performed By: #### 2 4321-2, ####[facility] LABORATORYCLIA [id number] [place] [id number] [place] Calcium [Mass/Vol] 10.3 mg/dL Normal 8.5-10.5 [facility] Comment on above: Order Comment: Speci men Type: BLOOD SPECIMENOrdering Facility: [facility] Address: [address] [place] [address] Performed By: #### 2 4321-2, ####[facility] LABORATORYCLIA [id number] [place] [address] [place] Chloride [Moles/Vol] 95 mmol/L Low 98-107 [facility] Comment on above: Order Comment: Speci men Type: BLOOD SPECIMENOrdering Facility: [facility] Address: [address] [place] [address] Performed By: #### 2 4321-2, ####[facility] LABORATORYCLIA [id number] [place] [id number] [place] CO2 [Moles/Vol] 31 mmol/L Normal 21-32 [facility] Comment on above: Order Comment: Speci men Type: BLOOD SPECIMENOrdering Facility: [facility] Address: [address] [place] [address] Performed By: #### 2 432-2, ####[facility] LABORATORYCLIA [id number] [place] [id number] [place] Creatinine [Mass/Vol] 0.76 mg/dL Normal 0.51-0.95 [facility] Comment on above: Order Comment: Speci men Type: BLOOD SPECIMENOrdering Facility: [facility] Address: [address] [place] [address] Result Comment: Linn ents receiving either N-Acetylcysteine (NAC) or Metamizole prior to venipuncture, may have falsely depressed results. Performed By: #### 2 4321-2, ####[facility] LABORATORYCLIA [id number] [place] [id number] [place] Creatinine and Glomerular filtration rate.predicted panel (S/P/Bld) 77 mL/min/1.73m??? Normal >=60 [facility] Comment on above: Order Comment: Speci men Type: BLOOD SPECIMENOrdering Facility: [facility] Address: [address] [place] [address] Result Comment: Esme mated Glomerular Filtration Rate (eGFR) is calculated using the 2020 CKD-EPI creatinine equation. This equation utilizes serum creatinine, sex, and age as parameters. The creatinine assay has traceable calibration to isotope dilution-mass spectrometry. Refer to KDIGO guidelines for clinical interpretation. In patients with unstable renal function, e.g. those with acute kidney injury, the eGFR may not accurately reflect actual GFR. Performed By: #### 2 4321-2, ####[facility] LABORATORYCLIA [id number] [place] [id number] [place] Glucose [Mass/Vol] 91 mg/dL Normal 70-100 [facility] Comment on above: Order Comment: Brady smith Type: BLOOD SPECIMENOrdering Facility: [facility] Address: [address] [place] [id number] Result Comment: The [place] [employer] (ADA) provides guidance for cutoff values for fasting glucose and random glucose. The ADA defines fasting as no caloric intake for at least 8 hours. Fasting plasma glucose results between 100 to 125 mg/dL indicate increased risk for diabetes (prediabetes).Fasting plasma glucose results greater than or equal to 126 mg/dL meet the criteria for diagnosis of diabetes. In the absence of unequivocal hyperglycemia, results should be confirmed by repeat testing. In a patient with classic symptoms of hyperglycemia or hyperglycemic crisis, random plasma glucose results greater than or equal to 200 mg/dL meet the criteria for diagnosis of diabetes.Reference: Standards of Medical Care in Diabetes 2016, [place] [employer]. Diabetes Care. 2016.39(Suppl 1).Results may be falsely elevated after the administration of Sulfapyridine.Results may be falsely depressed after the administration of Sulfasalazine. Performed By: #### 2 4321-2, ####[facility] LABORATORYCLIA [id number] [place] [address] [place] Potassium [Moles/Vol] 3.9 mmol/L Normal 3.5-5.1 [facility] Comment on above: Order Comment: Jayyi luis Type: BLOOD SPECIMENOrdering Facility: [facility] Address: [address] [place] [address] Performed By: #### 2 432-2, ####[facility] LABORATORYCLIA [id number] [place] [address] [place] Sodium [Moles/Vol] 130 mmol/L Low 136-145 [facility] Comment on above: Order Comment: Jayyi luis Type: BLOOD SPECIMENOrdering Facility: [facility] Address: [address] [place] [address] Performed By: #### 2 432-2, ####[facility] LABORATORYCLIA [id number] [place] [address] [place] Urea nitrogen [Mass/Vol] 9 mg/dL Normal 7-26 [facility] Comment on above: Order Comment: Jayyi luis Type: BLOOD SPECIMENOrdering Facility: [facility] Address: [address] [place] [address] Performed By: #### 2 432-2, ####[facility] LABORATORYCLIA [id number] [place] [address] [place] CBC W Auto Differential pane l (Bld)on 09-20-2023 Basophils (Bld) [#/Vol] 10*3/uL Normal <0.11 [facility] Comment on above: Order Comment: Jayyi men Type: BLOOD SPECIMENOrdering Facility: [facility] Address: [address] [place] [address] Performed By: #### 5 7021-8 ####[facility] LABORATORYCLIA [id number] [address] [place] Basophils/100 WBC (Bld) 0.3 % Normal [facility] Comment on above: Order Comment: Speci men Type: BLOOD SPECIMENOrdering Facility: [facility] Address: [address] [place] [address] Performed By: #### 5 7021-8 ####[facility] LABORATORYCLIA [id number] [address] [place] Differential cell count method Nom (Bld) Auto Normal [facility] Comment on above: Order Comment: Speci men Type: BLOOD SPECIMENOrdering Facility: [facility] Address: [address] [place] [address] Performed By: #### 5 7021-8 ####[facility] LABORATORYCLIA [id number] [address] [place] Eosinophils (Bld) [#/Vol] 0.30 10*3/uL Normal <0.46 [facility] Comment on above: Order Comment: Speci men Type: BLOOD SPECIMENOrdering Facility: [facility] Address: [address] [place] [address] Performed By: #### 5 7021-8 ####[facility] LABORATORYCLIA [id number] [address] [place] Eosinophils/100 WBC (Bld) 4.5 % Normal [facility] Comment on above: Order Comment: Speci men Type: BLOOD SPECIMENOrdering Facility: [facility] Address: [address] [place] [address] Performed By: #### 5 7021-8 ####[facility] LABORATORYCLIA [id number] [address] [place] Erythrocyte distribution width (RBC) [Ratio] 13.2 % Normal 11.5-15.0 [facility] Comment on above: Order Comment: Speci men Type: BLOOD SPECIMENOrdering Facility: [facility] Address: [address] [place], [place] [address] [address] Performed By: #### 5 7021-8 ####[facility] LABORATORYCLIA [id number] [place] [id number] [place] Hematocrit (Bld) [Volume fraction] 38.0 % Normal 36.0-46.0 [facility] Comment on above: Order Comment: Speci men Type: BLOOD SPECIMENOrdering Facility: [facility] Address: [address] [place] [address] Performed By: #### 5 7021-8 ####[facility] LABORATORYCLIA [id number] [place] [address] [place] Hemoglobin (Bld) [Mass/Vol] 12.6 g/dL Normal 11.5-15.5 [facility] Comment on above: Order Comment: Speci men Type: BLOOD SPECIMENOrdering Facility: [facility] Address: [address] [place] [address] Performed By: #### 5 7021-8 ####[facility] LABORATORYCLIA [id number] [place] [address] [place] Immature granulocytes (Bld) [#/Vol] 10*3/uL Normal <0.10 [facility] Comment on above: Order Comment: Speci men Type: BLOOD SPECIMENOrdering Facility: [facility] Address: [address] [place] [address] Performed By: #### 5 7021-8 ####[facility] LABORATORYCLIA [id number] [place] [address] [place] Immature granulocytes/100 WBC (Bld) 0.3 % Normal [facility] Comment on above: Order Comment: Speci men Type: BLOOD SPECIMENOrdering Facility: [facility] Address: [facility] [place] [address] Performed By: #### 5 7021-8 ####[facility] LABORATORYCLIA [id number] [place] [address] [place] Lymphocytes (Bld) [#/Vol] 1.60 10*3/uL Normal 1.00-4.00 [facility] Comment on above: Order Comment: Speci men Type: BLOOD SPECIMENOrdering Facility: [facility] Address: [address] [place] [address] Performed By: #### 5 7021-8 ####[facility] LABORATORYCLIA [id number] [address] [place] Lymphocytes/100 WBC (Bld) 23.9 % Normal [facility] Comment on above: Order Comment: Speci men Type: BLOOD SPECIMENOrdering Facility: [facility] Address: [address] [place] [address] Performed By: #### 5 7021-8 ####[facility] LABORATORYCLIA [id number] [place] [address] [place] MCH (RBC) [Entitic mass] 27.6 pg Normal 26.0-34.0 [facility] Comment on above: Order Comment: Speci men Type: BLOOD SPECIMENOrdering Facility: [facility] Address: [address] [place] [address] Performed By: #### 5 7021-8 ####[facility] LABORATORYCLIA [id number] [address] [place] MCHC (RBC) [Mass/Vol] 33.2 g/dL Normal 30.5-36.0 [facility] Comment on above: Order Comment: Speci men Type: BLOOD SPECIMENOrdering Facility: [facility] Address: [address] [place] [address] Performed By: #### 5 7021-8 ####[facility] LABORATORYCLIA [id number] [place] [address] [place] MCV (RBC) [Entitic vol] 83.2 fL Normal 80.0-100.0 [facility] Comment on above: Order Comment: Speci men Type: BLOOD SPECIMENOrdering Facility: [facility] Address: [address] [place] [address] Performed By: #### 5 7021-8 ####[facility] LABORATORYCLIA [id number] [place] [address] [place] Monocytes (Bld) [#/Vol] 0.70 10*3/uL Normal <0.87 [facility] Comment on above: Order Comment: Speci men Type: BLOOD SPECIMENOrdering Facility: [facility] Address: [address] [place] [address] Performed By: #### 5 7021-8 ####[facility] LABORATORYCLIA [id number] [place] [address] [place] Monocytes/100 WBC (Bld) 10.4 % Normal [facility] Comment on above: Order Comment: Speci men Type: BLOOD SPECIMENOrdering Facility: [facility] Address: [address] [place] [address] Performed By: #### 5 7021-8 ####[facility] LABORATORYCLIA [id number] [place] [address] [place] Neutrophils (Bld) [#/Vol] 4.06 10*3/uL Normal 1.45-7.50 [facility] Comment on above: Order Comment: Speci men Type: BLOOD SPECIMENOrdering Facility: [facility] Address: [address] [place] [address] Performed By: #### 5 7021-8 ####[facility] LABORATORYCLIA [id number] [place] [address] [place] Neutrophils/100 WBC (Bld) 60.6 % Normal [facility] Comment on above: Order Comment: Speci men Type: BLOOD SPECIMENOrdering Facility: [facility] Address: [address] [place] [address] Performed By: #### 5 7021-8 ####[facility] LABORATORYCLIA [id number] [place] [address] [place] Nucleated RBC (Bld) [#/Vol] 10*3/uL Normal <0.01 [facility] Comment on above: Order Comment: Speci men Type: BLOOD SPECIMENOrdering Facility: [facility] Address: [address] [place] [address] Performed By: #### 5 7021-8 ####[facility] LABORATORYCLIA [id number] [place] [address] [place] Nucleated RBC/100 WBC (Bld) [Ratio] 0.0 /100 WBC Normal [facility] Comment on above: Order Comment: Speci men Type: BLOOD SPECIMENOrdering Facility: [facility] Address: [address] [place] [address] Performed By: #### 5 7021-8 ####[facility] LABORATORYCLIA [id number] [place] [address] [place] Platelet mean volume (Bld) [Entitic vol] 9.9 fL Normal 9.0-12.7 [facility] Comment on above: Order Comment: Speci men Type: BLOOD SPECIMENOrdering Facility: [facility] Address: [address] [place] [address] Performed By: #### 5 7021-8 ####[facility] LABORATORYCLIA [id number] [place] [address] [place] Platelets (Bld) [#/Vol] 108 10*3/uL Low 150-400 [facility] Comment on above: Order Comment: Speci men Type: BLOOD SPECIMENOrdering Facility: [facility] Address: [address] [place] [address] Result Comment: No c lot detected. Performed By: #### 5 7021-8 ####[facility] LABORATORYCLIA [id number] [place] [address] [place] RBC (Bld) [#/Vol] 4.57 10*6/uL Normal 3.90-5.20 [facility] Comment on above: Order Comment: Speci men Type: BLOOD SPECIMENOrdering Facility: [facility] Address: [address] [place] [address] Performed By: #### 5 7021-8 ####[facility] LABORATORYCLIA [id number] [place] [id number] [place] WBC (Bld) [#/Vol] 6.70 10*3/uL Normal 3.70-11.00 [facility] Comment on above: Order Comment: Speci men Type: BLOOD SPECIMENOrdering Facility: [facility] Address: [facility] [place] [id number] Performed By: #### 5 7021-8 ####[facility] LABORATORYCLIA [id number] [place] [address] [place] Magnesium SerPl-mCncon 09-19 Magnesium [Mass/Vol] 2.0 mg/dL Normal 1.6-2.6 [facility] Comment on above: Order Comment: Speci men Type: BLOOD SPECIMENOrdering Facility: [facility] Address: [address] [place], [place] [address] [place] [id number] Performed By: #### 2 4321-2, ####[facility] LABORATORYCLIA [id number] [place] [id number] [place] NURSING PROGon 09-20-2023 NURSING PROG Normal [facility] Basic metabolic 2000 panelon 09-19-2023 Anion gap [Moles/Vol] mmol/L Low 5-16 [facility] Comment on above: Order Comment: Speci men Type: BLOOD SPECIMENOrdering Facility: [facility] Address: [address] [place], [place] [address] [address] Performed By: #### 2 4321-2, 53550-6, 3083-1 ####[facility] LABORATORYCLIA [id number] [place] [id number] [place] Calcium [Mass/Vol] 10.1 mg/dL Normal 8.5-10.5 [facility] Comment on above: Order Comment: Speci men Type: BLOOD SPECIMENOrdering Facility: [facility] Address: [address] [place], [place] [address] [id number] Performed By: #### 2 4321-2, 79803-5, 3083-1 ####[facility] LABORATORYCLIA [id number] [place] [address] [place] Chloride [Moles/Vol] 98 mmol/L Normal 98-107 [facility] Comment on above: Order Comment: Speci men Type: BLOOD SPECIMENOrdering Facility: [facility] Address: [address] [place] [address] Performed By: #### 2 4321-2, , 3083-03 ####[facility] LABORATORYCLIA [id number] [place] [id number] [place] CO2 [Moles/Vol] 32 mmol/L Normal 21-32 [facility] Comment on above: Order Comment: Speci men Type: BLOOD SPECIMENOrdering Facility: [facility] Address: [address] [place] [address] Performed By: #### 2 4321-2, , 3083-03 ####[facility] LABORATORYCLIA [id number] [address] [place] Creatinine [Mass/Vol] 0.96 mg/dL High 0.51-0.95 [facility] Comment on above: Order Comment: Speci men Type: BLOOD SPECIMENOrdering Facility: [facility] Address: [address] [place] [address] Result Comment: Linn ents receiving either N-Acetylcysteine (NAC) or Metamizole prior to venipuncture, may have falsely depressed results. Performed By: #### 2 4321-2, , 3083-03 ####[facility] LABORATORYCLIA [id number] [address] Creatinine and Glomerular filtration rate.predicted panel (S/P/Bld) 58 mL/min/1.73m??? Low >=60 [facility] Comment on above: Order Comment: Speci men Type: BLOOD SPECIMENOrdering Facility: [facility] Address: [address] [place] [address] Result Comment: Esme mated Glomerular Filtration Rate (eGFR) is calculated using the 2020 CKD-EPI creatinine equation. This equation utilizes serum creatinine, sex, and age as parameters. The creatinine assay has traceable calibration to isotope dilution-mass spectrometry. Refer to KDIGO guidelines for clinical interpretation. In patients with unstable renal function, e.g. those with acute kidney injury, the eGFR may not accurately reflect actual GFR. Performed By: #### 2 4321-2, , 3083-03 ####[facility] LABORATORYCLIA [id number] [place] [id number] [place] Glucose [Mass/Vol] 95 mg/dL Normal 70-100 [facility] Comment on above: Order Comment: Speci men Type: BLOOD SPECIMENOrdering Facility: [facility] Address: [address] [place] [address] Result Comment: The [place] [employer] (ADA) provides guidance for cutoff values for fasting glucose and random glucose. The ADA defines fasting as no caloric intake for at least 8 hours. Fasting plasma glucose results between 100 to 125 mg/dL indicate increased risk for diabetes (prediabetes).Fasting plasma glucose results greater than or equal to 126 mg/dL meet the criteria for diagnosis of diabetes. In the absence of unequivocal hyperglycemia, results should be confirmed by repeat testing. In a patient with classic symptoms of hyperglycemia or hyperglycemic crisis, random plasma glucose results greater than or equal to 200 mg/dL meet the criteria for diagnosis of diabetes.Reference: Standards of Medical Care in Diabetes 2016, [place] [employer]. Diabetes Care. 2016.39(Suppl 1).Results may be falsely elevated after the administration of Sulfapyridine.Results may be falsely depressed after the administration of Sulfasalazine. Performed By: #### 2 4321-2, , 3083-03 ####[facility] LABORATORYCLIA [id number] [place] [id number] [place] Potassium [Moles/Vol] 3.9 mmol/L Normal 3.5-5.1 [facility] Comment on above: Order Comment: Speci men Type: BLOOD SPECIMENOrdering Facility: [facility] Address: [address] [place] [address] Performed By: #### 2 4321-2, , 3083-03 ####[facility] LABORATORYCLIA [id number] [place] [id number] [place] Sodium [Moles/Vol] 132 mmol/L Low 136-145 [facility] Comment on above: Order Comment: Speci men Type: BLOOD SPECIMENOrdering Facility: [facility] Address: [address] [place] [address] Performed By: #### 2 4321-2, 24994-9, 3083-03 ####[facility] LABORATORYCLIA [id number] [address] [place] Urea nitrogen [Mass/Vol] 9 mg/dL Normal 7- [facility] Comment on above: Order Comment: Speci men Type: BLOOD SPECIMENOrdering Facility: [facility] Address: [address] [place] [address] Performed By: #### 2 4321-2, , 3083-03 ####[facility] LABORATORYCLIA [id number] [address] [place] CASE MANAGEMon 09-19-2023 CASE MANAGEM Normal [facility] CBC W Auto Differential pane l (Bld)on 09-19-2023 Basophils (Bld) [#/Vol] 10*3/uL Normal <0.11 [facility] Comment on above: Order Comment: Speci men Type: BLOOD SPECIMENOrdering Facility: [facility] Address: [address] [place] [address] Performed By: #### 5 7021-8 ####[facility] LABORATORYCLIA [id number] [address] [place] Basophils/100 WBC (Bld) 0.1 % Normal [facility] Comment on above: Order Comment: Speci men Type: BLOOD SPECIMENOrdering Facility: [facility] Address: [address] [place] [address] Performed By: #### 5 7021-8 ####[facility] LABORATORYCLIA [id number] [address] [place] Differential cell count method Nom (Bld) Auto Normal [facility] Comment on above: Order Comment: Speci men Type: BLOOD SPECIMENOrdering Facility: [facility] Address: [address] [place] [address] Performed By: #### 5 7021-8 ####[facility] LABORATORYCLIA [id number] [place] [id number] [place] Eosinophils (Bld) [#/Vol] 0.36 10*3/uL Normal <0.46 [facility] Comment on above: Order Comment: Speci men Type: BLOOD SPECIMENOrdering Facility: [facility] Address: [address] [place] [address] Performed By: #### 5 7021-8 ####[facility] LABORATORYCLIA [id number] [place] [id number] [place] Eosinophils/100 WBC (Bld) 5.0 % Normal [facility] Comment on above: Order Comment: Speci men Type: BLOOD SPECIMENOrdering Facility: [facility] Address: [address] [place] [address] Performed By: #### 5 7021-8 ####[facility] LABORATORYCLIA [id number] [place] [address] [place] Erythrocyte distribution width (RBC) [Ratio] 13.2 % Normal 11.5-15.0 [facility] Comment on above: Order Comment: Speci men Type: BLOOD SPECIMENOrdering Facility: [facility] Address: [address] [place] [address] Performed By: #### 5 7021-8 ####[facility] LABORATORYCLIA [id number] [place] [id number] [place] Hematocrit (Bld) [Volume fraction] 37.8 % Normal 36.0-46.0 [facility] Comment on above: Order Comment: Speci men Type: BLOOD SPECIMENOrdering Facility: [facility] Address: [address] [place] [address] Performed By: #### 5 7021-8 ####[facility] LABORATORYCLIA [id number] [place] [id number] [place] Hemoglobin (Bld) [Mass/Vol] 12.5 g/dL Normal 11.5-15.5 [facility] Comment on above: Order Comment: Speci men Type: BLOOD SPECIMENOrdering Facility: [facility] Address: [address] [place] [address] Performed By: #### 5 7021-8 ####[facility] LABORATORYCLIA [id number] [address] Immature granulocytes (Bld) [#/Vol] 0.03 10*3/uL Normal <0.10 [facility] Comment on above: Order Comment: Speci men Type: BLOOD SPECIMENOrdering Facility: [facility] Address: [address] [place] [address] Performed By: #### 5 7021-8 ####[facility] LABORATORYCLIA [id number] [address] Immature granulocytes/100 WBC (Bld) 0.4 % Normal [facility] Comment on above: Order Comment: Speci men Type: BLOOD SPECIMENOrdering Facility: [facility] Address: [address] [place] [address] Performed By: #### 5 7021-8 ####[facility] LABORATORYCLIA [id number] [address] [place] Lymphocytes (Bld) [#/Vol] 1.42 10*3/uL Normal 1.00-4.00 [facility] Comment on above: Order Comment: Speci men Type: BLOOD SPECIMENOrdering Facility: [facility] Address: [address] [place] [address] Performed By: #### 5 7021-8 ####[facility] LABORATORYCLIA [id number] [address] [place] Lymphocytes/100 WBC (Bld) 19.7 % Normal [facility] Comment on above: Order Comment: Speci men Type: BLOOD SPECIMENOrdering Facility: [facility] Address: [address] [place] [address] Performed By: #### 5 7021-8 ####[facility] LABORATORYCLIA [id number] [place] [address] [place] MCH (RBC) [Entitic mass] 27.8 pg Normal 26.0-34.0 [facility] Comment on above: Order Comment: Speci men Type: BLOOD SPECIMENOrdering Facility: [facility] Address: [address] [place] [address] Performed By: #### 5 7021-8 ####[facility] LABORATORYCLIA [id number] [place] [address] [place] MCHC (RBC) [Mass/Vol] 33.1 g/dL Normal 30.5-36.0 [facility] Comment on above: Order Comment: Speci men Type: BLOOD SPECIMENOrdering Facility: [facility] Address: [address] [place] [address] Performed By: #### 5 7021-8 ####[facility] LABORATORYCLIA [id number] [place] [address] [place] MCV (RBC) [Entitic vol] 84.2 fL Normal 80.0-100.0 [facility] Comment on above: Order Comment: Speci men Type: BLOOD SPECIMENOrdering Facility: [facility] Address: [address] [place] [address] Performed By: #### 5 7021-8 ####[facility] LABORATORYCLIA [id number] [address] [place] Monocytes (Bld) [#/Vol] 0.83 10*3/uL Normal <0.87 [facility] Comment on above: Order Comment: Speci men Type: BLOOD SPECIMENOrdering Facility: [facility] Address: [address] [place] [address] Performed By: #### 5 7021-8 ####[facility] LABORATORYCLIA [id number] [address] Monocytes/100 WBC (Bld) 11.5 % Normal [facility] Comment on above: Order Comment: Speci men Type: BLOOD SPECIMENOrdering Facility: [facility] Address: [address] [place] [address] Performed By: #### 5 7021-8 ####[facility] LABORATORYCLIA [id number] [place] [address] [place] Neutrophils (Bld) [#/Vol] 4.54 10*3/uL Normal 1.45-7.50 [facility] Comment on above: Order Comment: Speci men Type: BLOOD SPECIMENOrdering Facility: [facility] Address: [address] [place] [address] Performed By: #### 5 7021-8 ####[facility] LABORATORYCLIA [id number] [place] [address] [place] Neutrophils/100 WBC (Bld) 63.3 % Normal [facility] Comment on above: Order Comment: Speci men Type: BLOOD SPECIMENOrdering Facility: [facility] Address: [address] [place] [address] Performed By: #### 5 7021-8 ####[facility] LABORATORYCLIA [id number] [place] [address] [place] Nucleated RBC (Bld) [#/Vol] 10*3/uL Normal <0.01 [facility] Comment on above: Order Comment: Speci men Type: BLOOD SPECIMENOrdering Facility: [facility] Address: [address] [place] [address] Performed By: #### 5 7021-8 ####[facility] LABORATORYCLIA [id number] [place] [address] [place] Nucleated RBC/100 WBC (Bld) [Ratio] 0.0 /100 WBC Normal [facility] Comment on above: Order Comment: Speci men Type: BLOOD SPECIMENOrdering Facility: [facility] Address: [address] [place] [address] Performed By: #### 5 7021-8 ####[facility] LABORATORYCLIA [id number] [place] [address] [place] Platelet mean volume (Bld) [Entitic vol] 9.8 fL Normal 9.0-12.7 [facility] Comment on above: Order Comment: Speci men Type: BLOOD SPECIMENOrdering Facility: [facility] Address: [address] [place] [address] Performed By: #### 5 7021-8 ####[facility] LABORATORYCLIA [id number] [place] [id number] [facility] Platelets (Bld) [#/Vol] 112 10*3/uL Low 150-400 [facility] Comment on above: Order Comment: Speci men Type: BLOOD SPECIMENOrdering Facility: [facility] Address: [address] [place] [address] Result Comment: No c lot detected. Performed By: #### 5 7021-8 ####[facility] LABORATORYCLIA [id number] [place] [address] [place] RBC (Bld) [#/Vol] 4.49 10*6/uL Normal 3.90-5.20 [facility] Comment on above: Order Comment: Speci men Type: BLOOD SPECIMENOrdering Facility: [facility] Address: [address] [place] [address] Performed By: #### 5 7021-8 ####[facility] LABORATORYCLIA [id number] [place] [address] [place] [facility] [place] WBC (Bld) [#/Vol] 7.19 10*3/uL Normal 3.70-11.00 [facility] Comment on above: Order Comment: Speci men Type: BLOOD SPECIMENOrdering Facility: [facility] Address: [address] [place] [address] Performed By: #### 5 7021-8 ####[facility] LABORATORYCLIA [id number] [place] [id number] [facility] [place] Magnesium SerPl-mCncon 09-18 Magnesium [Mass/Vol] 1.8 mg/dL Normal 1.6-2.6 [facility] Comment on above: Order Comment: Speci men Type: BLOOD SPECIMENOrdering Facility: [facility] Address: [address] [place] [address] Performed By: #### 2 4321-2, 85576-0, 3084-1 ####[facility] LABORATORYCLIA [id number] [place] [address] [place] Urate SerPl-mCncon Urate [Mass/Vol] 6.8 mg/dL High 2.6-6.0 [facility] Comment on above: Order Comment: Speci men Type: BLOOD SPECIMENOrdering Facility: [facility] Address: [address] [place] [address] Result Comment: Linn ents receiving Metamizole prior to venipuncture, may have falsely depressed results. Performed By: #### 2 4321-2, 48215-5, 3084-1 ####[facility] LABORATORYCLIA [id number] [place] [id number] [place] Basic metabolic 2000 panelon 09-18-2023 Anion gap [Moles/Vol] 8 mmol/L Normal 5-16 [facility] Comment on above: Order Comment: Speci men Type: BLOOD SPECIMENOrdering Facility: [facility] Address: [address] [place] [address] Performed By: #### 2 4321-2, ####[facility] LABORATORYCLIA [id number] [place] [address] [place] Calcium [Mass/Vol] 10.6 mg/dL High 8.5-10.5 [facility] Comment on above: Order Comment: Speci men Type: BLOOD SPECIMENOrdering Facility: [facility] Address: [address] [place] [address] Performed By: #### 2 4321-2, ####[facility] LABORATORYCLIA [id number] [place] [id number] [place] Chloride [Moles/Vol] 96 mmol/L Low 98-107 [facility] Comment on above: Order Comment: Speci men Type: BLOOD SPECIMENOrdering Facility: [facility] Address: [address] [place] [address] Performed By: #### 2 4321-2, ####[facility] LABORATORYCLIA [id number] [place] [address] [place] CO2 [Moles/Vol] 32 mmol/L Normal 21-32 [facility] Comment on above: Order Comment: Speci men Type: BLOOD SPECIMENOrdering Facility: [facility] Address: [address] [place] [address] Performed By: #### 2 4321-2, ####[facility] LABORATORYCLIA [id number] [place] [id number] [place] Creatinine [Mass/Vol] 0.70 mg/dL Normal 0.51-0.95 [facility] Comment on above: Order Comment: Speci men Type: BLOOD SPECIMENOrdering Facility: [facility] Address: [address] [place] [address] Result Comment: Linn ents receiving either N-Acetylcysteine (NAC) or Metamizole prior to venipuncture, may have falsely depressed results. Performed By: #### 2 432-2, ####[facility] LABORATORYCLIA [id number] [place] [address] [place] [facility] [place] Creatinine and Glomerular filtration rate.predicted panel (S/P/Bld) 85 mL/min/1.73m??? Normal >=60 [facility] Comment on above: Order Comment: Speci men Type: BLOOD SPECIMENOrdering Facility: [facility] Address: [address] [place] [address] Result Comment: Esme mated Glomerular Filtration Rate (eGFR) is calculated using the 2020 CKD-EPI creatinine equation. This equation utilizes serum creatinine, sex, and age as parameters. The creatinine assay has traceable calibration to isotope dilution-mass spectrometry. Refer to KDIGO guidelines for clinical interpretation. In patients with unstable renal function, e.g. those with acute kidney injury, the eGFR may not accurately reflect actual GFR. Performed By: #### 2 4321-2, ####[facility] LABORATORYCLIA [id number] [place] [id number] [place] Glucose [Mass/Vol] 84 mg/dL Normal 70-100 [facility] Comment on above: Order Comment: Speci men Type: BLOOD SPECIMENOrdering Facility: [facility] Address: [address] [place] [address] Result Comment: The [place] [employer] (ADA) provides guidance for cutoff values for fasting glucose and random glucose. The ADA defines fasting as no caloric intake for at least 8 hours. Fasting plasma glucose results between 100 to 125 mg/dL indicate increased risk for diabetes (prediabetes).Fasting plasma glucose results greater than or equal to 126 mg/dL meet the criteria for diagnosis of diabetes. In the absence of unequivocal hyperglycemia, results should be confirmed by repeat testing. In a patient with classic symptoms of hyperglycemia or hyperglycemic crisis, random plasma glucose results greater than or equal to 200 mg/dL meet the criteria for diagnosis of diabetes.Reference: Standards of Medical Care in Diabetes 2016, [place] [employer]. Diabetes Care. 2016.39(Suppl 1).Results may be falsely elevated after the administration of Sulfapyridine.Results may be falsely depressed after the administration of Sulfasalazine. Performed By: #### 2 432-, ####[facility] LABORATORYCLIA [id number] [place] [address] [place] Potassium [Moles/Vol] 3.6 mmol/L Normal 3.5-5.1 [facility] Comment on above: Order Comment: Brady smith Type: BLOOD SPECIMENOrdering Facility: [facility] Address: [address] [place] [address] Performed By: #### 2 432-, ####[facility] LABORATORYCLIA [id number] [place] [address] [place] Sodium [Moles/Vol] 136 mmol/L Normal 136-145 [facility] Comment on above: Order Comment: Brady luis Type: BLOOD SPECIMENOrdering Facility: [facility] Address: [address] [place], [place] [address] Performed By: #### 2 43203-11, ####[facility] LABORATORYCLIA [id number] [place] [id number] [place] Urea nitrogen [Mass/Vol] 7 mg/dL Normal 7-26 [facility] Comment on above: Order Comment: Speci men Type: BLOOD SPECIMENOrdering Facility: [facility] Address: [address] [place] [address] Performed By: #### 2 4321-2, 95535-7 ####[facility] LABORATORYCLIA [id number] [place] [id number] [place] CBC W Auto Differential pane l (Bld)on 09-18-2023 Basophils (Bld) [#/Vol] 10*3/uL Normal <0.11 [facility] Comment on above: Order Comment: Speci men Type: BLOOD SPECIMENOrdering Facility: [facility] Address: [address] [place] [address] Performed By: #### 5 7021-8 ####[facility] LABORATORYCLIA [id number] [place] [address] [place] Basophils/100 WBC (Bld) 0.3 % Normal [facility] Comment on above: Order Comment: Speci men Type: BLOOD SPECIMENOrdering Facility: [facility] Address: [address] [place] [address] Performed By: #### 5 7021-8 ####[facility] LABORATORYCLIA [id number] [address] [place] Differential cell count method Nom (Bld) Auto Normal [facility] Comment on above: Order Comment: Speci men Type: BLOOD SPECIMENOrdering Facility: [facility] Address: [address] [place] [address] Performed By: #### 5 7021-8 ####[facility] LABORATORYCLIA [id number] [place] [address] [place] Eosinophils (Bld) [#/Vol] 0.40 10*3/uL Normal <0.46 [facility] Comment on above: Order Comment: Speci men Type: BLOOD SPECIMENOrdering Facility: [facility] Address: [address] [place] [address] Performed By: #### 5 7021-8 ####[facility] LABORATORYCLIA [id number] [place] [address] [place] Eosinophils/100 WBC (Bld) 6.2 % Normal [facility] Comment on above: Order Comment: Speci men Type: BLOOD SPECIMENOrdering Facility: [facility] Address: [address] [place] [address] Performed By: #### 5 7021-8 ####[facility] LABORATORYCLIA [id number] [place] [address] [place] Erythrocyte distribution width (RBC) [Ratio] 13.2 % Normal 11.5-15.0 [facility] Comment on above: Order Comment: Speci men Type: BLOOD SPECIMENOrdering Facility: [facility] Address: [address] [place] [address] Performed By: #### 5 7021-8 ####[facility] LABORATORYCLIA [id number] [place] [address] [place] Hematocrit (Bld) [Volume fraction] 39.4 % Normal 36.0-46.0 [facility] Comment on above: Order Comment: Speci men Type: BLOOD SPECIMENOrdering Facility: [facility] Address: [address] [place] [address] Performed By: #### 5 7021-8 ####[facility] LABORATORYCLIA [id number] [place] [address] [place] Hemoglobin (Bld) [Mass/Vol] 13.2 g/dL Normal 11.5-15.5 [facility] Comment on above: Order Comment: Speci men Type: BLOOD SPECIMENOrdering Facility: [facility] Address: [address] [place] [address] Performed By: #### 5 7021-8 ####[facility] LABORATORYCLIA [id number] [place] [address] [place] Immature granulocytes (Bld) [#/Vol] 0.03 10*3/uL Normal <0.10 [facility] Comment on above: Order Comment: Speci men Type: BLOOD SPECIMENOrdering Facility: [facility] Address: [address] [place] [address] Performed By: #### 5 7021-8 ####[facility] LABORATORYCLIA [id number] [place] [address] [place] Immature granulocytes/100 WBC (Bld) 0.5 % Normal [facility] Comment on above: Order Comment: Speci men Type: BLOOD SPECIMENOrdering Facility: [facility] Address: [address] [place] [address] Performed By: #### 5 7021-8 ####[facility] LABORATORYCLIA [id number] [place] [address] [place] Lymphocytes (Bld) [#/Vol] 1.57 10*3/uL Normal 1.00-4.00 [facility] Comment on above: Order Comment: Speci men Type: BLOOD SPECIMENOrdering Facility: [facility] Address: [address] [place] [address] Performed By: #### 5 7021-8 ####[facility] LABORATORYCLIA [id number] [address] [place] Lymphocytes/100 WBC (Bld) 24.5 % Normal [facility] Comment on above: Order Comment: Speci men Type: BLOOD SPECIMENOrdering Facility: [facility] Address: [address] [place] [address] Performed By: #### 5 7021-8 ####[facility] LABORATORYCLIA [id number] [place] [address] [place] MCH (RBC) [Entitic mass] 27.8 pg Normal 26.0-34.0 [facility] Comment on above: Order Comment: Speci men Type: BLOOD SPECIMENOrdering Facility: [facility] Address: [address] [place] [address] Performed By: #### 5 7021-8 ####[facility] LABORATORYCLIA [id number] [place] [address] [place] MCHC (RBC) [Mass/Vol] 33.5 g/dL Normal 30.5-36.0 [facility] Comment on above: Order Comment: Speci men Type: BLOOD SPECIMENOrdering Facility: [facility] Address: [address] [place] [address] Performed By: #### 5 7021-8 ####[facility] LABORATORYCLIA [id number] [place] [id number] [place] MCV (RBC) [Entitic vol] 83.1 fL Normal 80.0-100.0 [facility] Comment on above: Order Comment: Speci men Type: BLOOD SPECIMENOrdering Facility: [facility] Address: [address] [place] [address] Performed By: #### 5 7021-8 ####[facility] LABORATORYCLIA [id number] [place] [address] [place] Monocytes (Bld) [#/Vol] 0.74 10*3/uL Normal <0.87 [facility] Comment on above: Order Comment: Speci men Type: BLOOD SPECIMENOrdering Facility: [facility] Address: [address] [place] [address] Performed By: #### 5 7021-8 ####[facility] LABORATORYCLIA [id number] [place] [address] [place] Monocytes/100 WBC (Bld) 11.5 % Normal [facility] Comment on above: Order Comment: Speci men Type: BLOOD SPECIMENOrdering Facility: [facility] Address: [address] [place] [address] Performed By: #### 5 7021-8 ####[facility] LABORATORYCLIA [id number] [place] [address] [place] Neutrophils (Bld) [#/Vol] 3.65 10*3/uL Normal 1.45-7.50 [facility] Comment on above: Order Comment: Speci men Type: BLOOD SPECIMENOrdering Facility: [facility] Address: [address] [place] [address] Performed By: #### 5 7021-8 ####[facility] LABORATORYCLIA [id number] [place] [address] [place] Neutrophils/100 WBC (Bld) 57.0 % Normal [facility] Comment on above: Order Comment: Speci men Type: BLOOD SPECIMENOrdering Facility: [facility] Address: [address] [place] [address] Performed By: #### 5 7021-8 ####[facility] LABORATORYCLIA [id number] [place] [address] [place] Nucleated RBC (Bld) [#/Vol] 10*3/uL Normal <0.01 [facility] Comment on above: Order Comment: Speci men Type: BLOOD SPECIMENOrdering Facility: [facility] Address: [address] [place] [address] Performed By: #### 5 7021-8 ####[facility] LABORATORYCLIA [id number] [address] [place] Nucleated RBC/100 WBC (Bld) [Ratio] 0.0 /100 WBC Normal [facility] Comment on above: Order Comment: Speci men Type: BLOOD SPECIMENOrdering Facility: [facility] Address: [address] [place] [address] Performed By: #### 5 7021-8 ####[facility] LABORATORYCLIA [id number] [address] [place] Platelet mean volume (Bld) [Entitic vol] 10.1 fL Normal 9.0-12.7 [facility] Comment on above: Order Comment: Speci men Type: BLOOD SPECIMENOrdering Facility: [facility] Address: [address] [place] [address] Performed By: #### 5 7021-8 ####[facility] LABORATORYCLIA [id number] [place] [address] [place] Platelets (Bld) [#/Vol] 117 10*3/uL Low 150-400 [facility] Comment on above: Order Comment: Speci men Type: BLOOD SPECIMENOrdering Facility: [facility] Address: [address] [place] [address] Result Comment: No c lot detected. Performed By: #### 5 7021-8 ####[facility] LABORATORYCLIA [id number] [place] [id number] [place] RBC (Bld) [#/Vol] 4.74 10*6/uL Normal 3.90-5.20 [facility] Comment on above: Order Comment: Speci men Type: BLOOD SPECIMENOrdering Facility: [facility] Address: [address] [place] [address] Performed By: #### 5 7021-8 ####[facility] LABORATORYCLIA [id number] [place] [address] [place] [facility] [place] WBC (Bld) [#/Vol] 6.41 10*3/uL Normal 3.70-11.00 [facility] Comment on above: Order Comment: Speci men Type: BLOOD SPECIMENOrdering Facility: [facility] Address: [address] [place] [address] Performed By: #### 5 7021-8 ####[facility] LABORATORYCLIA [id number] [place] [address] [place] Magnesium SerPl-mCncon 09-17 Magnesium [Mass/Vol] 1.9 mg/dL Normal 1.6-2.6 [facility] Comment on above: Order Comment: Speci men Type: BLOOD SPECIMENOrdering Facility: [facility] Address: [address] [place] [address] Performed By: #### 2 4321-2, 83547-9 ####[facility] LABORATORYCLIA [id number] [place] [address] [place] THERAPY NTon 09-18-2023 THERAPY NT Normal [facility] XR CHEST 1V FRONTALon 2023 XR CHEST 1V FRONTAL Normal [facility] Basic metabolic 2000 panelon 09-17-2023 Anion gap [Moles/Vol] 7 mmol/L Normal 5-16 [facility] Comment on above: Order Comment: Speci men Type: BLOOD SPECIMENOrdering Facility: [facility] Address: [address] [place] [address] Performed By: #### 2 432-2, ####[facility] LABORATORYCLIA [id number] [place] [id number] [place] Calcium [Mass/Vol] 10.1 mg/dL Normal 8.5-10.5 [facility] Comment on above: Order Comment: Speci men Type: BLOOD SPECIMENOrdering Facility: [facility] Address: [address] [place] [address] Performed By: #### 2 432-2, ####[facility] LABORATORYCLIA [id number] [place] [id number] [place] Chloride [Moles/Vol] 102 mmol/L Normal 98-107 [facility] Comment on above: Order Comment: Speci men Type: BLOOD SPECIMENOrdering Facility: [facility] Address: [address] [place] [address] Performed By: #### 2 4322, ####[facility] LABORATORYCLIA [id number] [place] [address] [place] CO2 [Moles/Vol] 29 mmol/L Normal 21-32 [facility] Comment on above: Order Comment: Speci men Type: BLOOD SPECIMENOrdering Facility: [facility] Address: [address] [place] [address] Performed By: #### 2 4322, ####[facility] LABORATORYCLIA [id number] [place] [address] [place] Creatinine [Mass/Vol] 0.69 mg/dL Normal 0.51-0.95 [facility] Comment on above: Order Comment: Speci men Type: BLOOD SPECIMENOrdering Facility: [facility] Address: [address] [place] [address] Result Comment: Linn ents receiving either N-Acetylcysteine (NAC) or Metamizole prior to venipuncture, may have falsely depressed results. Performed By: #### 2 432-2, ####[facility] LABORATORYCLIA [id number] [address] [place] [facility] Creatinine and Glomerular filtration rate.predicted panel (S/P/Bld) 86 mL/min/1.73m??? Normal >=60 [facility] Comment on above: Order Comment: Brady smith Type: BLOOD SPECIMENOrdering Facility: [facility] Address: [address] [place] [address] Result Comment: Esme mated Glomerular Filtration Rate (eGFR) is calculated using the 2020 CKD-EPI creatinine equation. This equation utilizes serum creatinine, sex, and age as parameters. The creatinine assay has traceable calibration to isotope dilution-mass spectrometry. Refer to KDIGO guidelines for clinical interpretation. In patients with unstable renal function, e.g. those with acute kidney injury, the eGFR may not accurately reflect actual GFR. Performed By: #### 2 4321-2, 68749-8 ####[facility] LABORATORYCLIA [id number] [place] [address] [place] Glucose [Mass/Vol] 92 mg/dL Normal 70-100 [facility] Comment on above: Order Comment: Brady smith Type: BLOOD SPECIMENOrdering Facility: [facility] Address: [address] [place] [address] Result Comment: The [place] [employer] (ADA) provides guidance for cutoff values for fasting glucose and random glucose. The ADA defines fasting as no caloric intake for at least 8 hours. Fasting plasma glucose results between 100 to 125 mg/dL indicate increased risk for diabetes (prediabetes).Fasting plasma glucose results greater than or equal to 126 mg/dL meet the criteria for diagnosis of diabetes. In the absence of unequivocal hyperglycemia, results should be confirmed by repeat testing. In a patient with classic symptoms of hyperglycemia or hyperglycemic crisis, random plasma glucose results greater than or equal to 200 mg/dL meet the criteria for diagnosis of diabetes.Reference: Standards of Medical Care in Diabetes 2016, [place] [employer]. Diabetes Care. 2016.39(Suppl 1).Results may be falsely elevated after the administration of Sulfapyridine.Results may be falsely depressed after the administration of Sulfasalazine. Performed By: #### 2 4321-2, 62574-9 ####[facility] LABORATORYCLIA [id number] [place] [id number] [place] Potassium [Moles/Vol] 3.2 mmol/L Low 3.5-5.1 [facility] Comment on above: Order Comment: Speci men Type: BLOOD SPECIMENOrdering Facility: [facility] Address: [address] [place] [address] [place] [address] Performed By: #### 2 4321-2, 08451-0 ####[facility] LABORATORYCLIA [id number] [place] [id number] [place] Sodium [Moles/Vol] 138 mmol/L Normal 136-145 [facility] Comment on above: Order Comment: Speci men Type: BLOOD SPECIMENOrdering Facility: [facility] Address: [address] [place] [address] Performed By: #### 2 4321-2, ####[facility] LABORATORYCLIA [id number] [place] [id number] [place] Urea nitrogen [Mass/Vol] 6 mg/dL Low 7-26 [facility] Comment on above: Order Comment: Speci men Type: BLOOD SPECIMENOrdering Facility: [facility] Address: [address] [place] [address] Performed By: #### 2 4321-2, ####[facility] LABORATORYCLIA [id number] [place] [id number] [place] CASE MANAGEMon 09-17-2023 CASE MANAGEM Normal [facility] CBC W Auto Differential pane l (Bld)on 09-17-2023 Basophils (Bld) [#/Vol] 10*3/uL Normal <0.11 [facility] Comment on above: Order Comment: Speci men Type: BLOOD SPECIMENOrdering Facility: [facility] Address: [address] [place] [address] Performed By: #### 5 7021-8 ####[facility] LABORATORYCLIA [id number] [place] [id number] [place] Basophils/100 WBC (Bld) 0.3 % Normal [facility] Comment on above: Order Comment: Speci men Type: BLOOD SPECIMENOrdering Facility: [facility] Address: [address] [place] [address] Performed By: #### 5 7021-8 ####[facility] LABORATORYCLIA [id number] [address] [place] Differential cell count method Nom (Bld) Auto Normal [facility] Comment on above: Order Comment: Speci men Type: BLOOD SPECIMENOrdering Facility: [facility] Address: [address] [place] [address] Performed By: #### 5 7021-8 ####[facility] LABORATORYCLIA [id number] [place] [address] [place] Eosinophils (Bld) [#/Vol] 0.42 10*3/uL Normal <0.46 [facility] Comment on above: Order Comment: Speci men Type: BLOOD SPECIMENOrdering Facility: [facility] Address: [address] [place] [address] Performed By: #### 5 7021-8 ####[facility] LABORATORYCLIA [id number] [address] [place] Eosinophils/100 WBC (Bld) 6.8 % Normal [facility] Comment on above: Order Comment: Speci men Type: BLOOD SPECIMENOrdering Facility: [facility] Address: [address] [place] [address] Performed By: #### 5 7021-8 ####[facility] LABORATORYCLIA [id number] [address] [place] Erythrocyte distribution width (RBC) [Ratio] 13.3 % Normal 11.5-15.0 [facility] Comment on above: Order Comment: Speci men Type: BLOOD SPECIMENOrdering Facility: [facility] Address: [address] [place] [address] Performed By: #### 5 7021-8 ####[facility] LABORATORYCLIA [id number] [place] [address] [place] Hematocrit (Bld) [Volume fraction] 36.5 % Normal 36.0-46.0 [facility] Comment on above: Order Comment: Speci men Type: BLOOD SPECIMENOrdering Facility: [facility] Address: [address] [place] [address] Performed By: #### 5 7021-8 ####[facility] LABORATORYCLIA [id number] [place] [id number] [place] Hemoglobin (Bld) [Mass/Vol] 12.4 g/dL Normal 11.5-15.5 [facility] Comment on above: Order Comment: Speci men Type: BLOOD SPECIMENOrdering Facility: [facility] Address: [address] [place] [address] Performed By: #### 5 7021-8 ####[facility] LABORATORYCLIA [id number] [place] [address] [place] Immature granulocytes (Bld) [#/Vol] 10*3/uL Normal <0.10 [facility] Comment on above: Order Comment: Speci men Type: BLOOD SPECIMENOrdering Facility: [facility] Address: [address] [place] [address] Performed By: #### 5 7021-8 ####[facility] LABORATORYCLIA [id number] [place] [address] [place] Immature granulocytes/100 WBC (Bld) 0.3 % Normal [facility] Comment on above: Order Comment: Speci men Type: BLOOD SPECIMENOrdering Facility: [facility] Address: [address] [place] [address] Performed By: #### 5 7021-8 ####[facility] LABORATORYCLIA [id number] [place] [address] [place] Lymphocytes (Bld) [#/Vol] 1.72 10*3/uL Normal 1.00-4.00 [facility] Comment on above: Order Comment: Speci men Type: BLOOD SPECIMENOrdering Facility: [facility] Address: [address] [place] [address] Performed By: #### 5 7021-8 ####[facility] LABORATORYCLIA [id number] [address] [place] Lymphocytes/100 WBC (Bld) 27.7 % Normal [facility] Comment on above: Order Comment: Speci men Type: BLOOD SPECIMENOrdering Facility: [facility] Address: [address] [place] [address] Performed By: #### 5 7021-8 ####[facility] LABORATORYCLIA [id number] [place] [address] [place] MCH (RBC) [Entitic mass] 28.2 pg Normal 26.0-34.0 [facility] Comment on above: Order Comment: Speci men Type: BLOOD SPECIMENOrdering Facility: [facility] Address: [address] [place] [address] Performed By: #### 5 7021-8 ####[facility] LABORATORYCLIA [id number] [place] [address] [place] MCHC (RBC) [Mass/Vol] 34.0 g/dL Normal 30.5-36.0 [facility] Comment on above: Order Comment: Speci men Type: BLOOD SPECIMENOrdering Facility: [facility] Address: [address] [place] [address] Performed By: #### 5 7021-8 ####[facility] LABORATORYCLIA [id number] [place] [address] [place] MCV (RBC) [Entitic vol] 83.0 fL Normal 80.0-100.0 [facility] Comment on above: Order Comment: Speci men Type: BLOOD SPECIMENOrdering Facility: [facility] Address: [address] [place] [address] Performed By: #### 5 7021-8 ####[facility] LABORATORYCLIA [id number] [address] [place] Monocytes (Bld) [#/Vol] 0.65 10*3/uL Normal <0.87 [facility] Comment on above: Order Comment: Speci men Type: BLOOD SPECIMENOrdering Facility: [facility] Address: [address] [place] [address] Performed By: #### 5 7021-8 ####[facility] LABORATORYCLIA [id number] [place] [id number] [place] Monocytes/100 WBC (Bld) 10.5 % Normal [facility] Comment on above: Order Comment: Speci men Type: BLOOD SPECIMENOrdering Facility: [facility] Address: [address] [place] [address] Performed By: #### 5 7021-8 ####[facility] LABORATORYCLIA [id number] [place] [address] [place] Neutrophils (Bld) [#/Vol] 3.37 10*3/uL Normal 1.45-7.50 [facility] Comment on above: Order Comment: Speci men Type: BLOOD SPECIMENOrdering Facility: [facility] Address: [address] [place] [address] Performed By: #### 5 7021-8 ####[facility] LABORATORYCLIA [id number] [place] [address] [place] Neutrophils/100 WBC (Bld) 54.4 % Normal [facility] Comment on above: Order Comment: Speci men Type: BLOOD SPECIMENOrdering Facility: [facility] Address: [address] [place] [address] Performed By: #### 5 7021-8 ####[facility] LABORATORYCLIA [id number] [place] [address] [place] Nucleated RBC (Bld) [#/Vol] 10*3/uL Normal <0.01 [facility] Comment on above: Order Comment: Speci men Type: BLOOD SPECIMENOrdering Facility: [facility] Address: [address] [place] [address] Performed By: #### 5 7021-8 ####[facility] LABORATORYCLIA [id number] [place] [address] [place] Nucleated RBC/100 WBC (Bld) [Ratio] 0.0 /100 WBC Normal [facility] Comment on above: Order Comment: Speci men Type: BLOOD SPECIMENOrdering Facility: [facility] Address: [address] [place] [address] Performed By: #### 5 7021-8 ####[facility] LABORATORYCLIA [id number] [place] [id number] [place] Platelet mean volume (Bld) [Entitic vol] 9.5 fL Normal 9.0-12.7 [facility] Comment on above: Order Comment: Speci men Type: BLOOD SPECIMENOrdering Facility: [facility] Address: [address] [place] [address] Performed By: #### 5 7021-8 ####[facility] LABORATORYCLIA [id number] [place] [id number] [place] Platelets (Bld) [#/Vol] 115 10*3/uL Low 150-400 [facility] Comment on above: Order Comment: Speci men Type: BLOOD SPECIMENOrdering Facility: [facility] Address: [address] [place] [address] Result Comment: Resu lts checked and verified.No clot detected. Performed By: #### 5 7021-8 ####[facility] LABORATORYCLIA [id number] [place] [id number] [place] RBC (Bld) [#/Vol] 4.40 10*6/uL Normal 3.90-5.20 [facility] Comment on above: Order Comment: Speci men Type: BLOOD SPECIMENOrdering Facility: [facility] Address: [address] [place] [address] Performed By: #### 5 7021-8 ####[facility] LABORATORYCLIA [id number] [place] [id number] [place] WBC (Bld) [#/Vol] 6.20 10*3/uL Normal 3.70-11.00 [facility] Comment on above: Order Comment: Speci men Type: BLOOD SPECIMENOrdering Facility: [facility] Address: [address] [place] [address] Performed By: #### 5 7021-8 ####[facility] LABORATORYCLIA [id number] [place] [id number] [place] Magnesium SerPl-mCncon 09-16 Magnesium [Mass/Vol] 1.4 mg/dL Low 1.6-2.6 [facility] Comment on above: Order Comment: Speci men Type: BLOOD SPECIMENOrdering Facility: [facility] Address: [address] [place] [address] Performed By: #### 2 4321-2, 34587-7 ####[facility] LABORATORYCLIA [id number] [place] [id number] [place] THERAPY NTon 09-17-2023 THERAPY NT Normal [facility] THERAPY NT Normal [facility] Basic metabolic 2000 panelon 09-16-2023 Anion gap [Moles/Vol] mmol/L Low 5-16 [facility] Comment on above: Order Comment: Speci men Type: BLOOD SPECIMENOrdering Facility: [facility] Address: [address] [place] [address] Performed By: #### 2 4321-2 ####[facility] LABORATORYCLIA [id number] [place] [id number] [place] Calcium [Mass/Vol] 9.8 mg/dL Normal 8.5-10.5 [facility] Comment on above: Order Comment: Speci men Type: BLOOD SPECIMENOrdering Facility: [facility] Address: [address] [place] [address] Performed By: #### 2 4321-2 ####[facility] LABORATORYCLIA [id number] [place] [id number] [place] Chloride [Moles/Vol] 112 mmol/L High 98-107 [facility] Comment on above: Order Comment: Speci men Type: BLOOD SPECIMENOrdering Facility: [facility] Address: [address] [place] [address] Performed By: #### 2 4321-2 ####[facility] LABORATORYCLIA [id number] [place] [id number] [place] CO2 [Moles/Vol] 26 mmol/L Normal 21-32 [facility] Comment on above: Order Comment: Speci men Type: BLOOD SPECIMENOrdering Facility: [facility] Address: [address] [place] [address] Performed By: #### 2 4321-2 ####[facility] LABORATORYCLIA [id number] [place] [id number] [place] Creatinine [Mass/Vol] 0.62 mg/dL Normal 0.51-0.95 [facility] Comment on above: Order Comment: Speci men Type: BLOOD SPECIMENOrdering Facility: [facility] Address: [address] [place] [address] Result Comment: Linn ents receiving either N-Acetylcysteine (NAC) or Metamizole prior to venipuncture, may have falsely depressed results. Performed By: #### 2 4321-2 ####[facility] LABORATORYCLIA [id number] [address] Creatinine and Glomerular filtration rate.predicted panel (S/P/Bld) 88 mL/min/1.73m??? Normal >=60 [facility] Comment on above: Order Comment: Speci men Type: BLOOD SPECIMENOrdering Facility: [facility] Address: [address] [place] [address] Result Comment: Esme mated Glomerular Filtration Rate (eGFR) is calculated using the 2020 CKD-EPI creatinine equation. This equation utilizes serum creatinine, sex, and age as parameters. The creatinine assay has traceable calibration to isotope dilution-mass spectrometry. Refer to KDIGO guidelines for clinical interpretation. In patients with unstable renal function, e.g. those with acute kidney injury, the eGFR may not accurately reflect actual GFR. Performed By: #### 2 4321-2 ####[facility] LABORATORYCLIA [id number] [place] [address] [place] Glucose [Mass/Vol] 75 mg/dL Normal 70-100 [facility] Comment on above: Order Comment: Speci luis Type: BLOOD SPECIMENOrdering Facility: [facility] Address: [address] [place] [address] Result Comment: The [place] [employer] (ADA) provides guidance for cutoff values for fasting glucose and random glucose. The ADA defines fasting as no caloric intake for at least 8 hours. Fasting plasma glucose results between 100 to 125 mg/dL indicate increased risk for diabetes (prediabetes).Fasting plasma glucose results greater than or equal to 126 mg/dL meet the criteria for diagnosis of diabetes. In the absence of unequivocal hyperglycemia, results should be confirmed by repeat testing. In a patient with classic symptoms of hyperglycemia or hyperglycemic crisis, random plasma glucose results greater than or equal to 200 mg/dL meet the criteria for diagnosis of diabetes.Reference: Standards of Medical Care in Diabetes 2016, [place] [employer]. Diabetes Care. 2016.39(Suppl 1).Results may be falsely elevated after the administration of Sulfapyridine.Results may be falsely depressed after the administration of Sulfasalazine. Performed By: #### 2 4321-2 ####[facility] LABORATORYCLIA [id number] [place] [address] [place] Potassium [Moles/Vol] 3.8 mmol/L Normal 3.5-5.1 [facility] Comment on above: Order Comment: Speci men Type: BLOOD SPECIMENOrdering Facility: [facility] Address: [address] [place] [address] Performed By: #### 2 4321-2 ####[facility] LABORATORYCLIA [id number] [place] [address] [place] Sodium [Moles/Vol] 140 mmol/L Normal 136-145 [facility] Comment on above: Order Comment: Speci men Type: BLOOD SPECIMENOrdering Facility: [facility] Address: [address] [place] [place] [id number] Performed By: #### 2 1-2 ####[facility] LABORATORYCLIA [id number] [place] [address] [place] Urea nitrogen [Mass/Vol] 7 mg/dL Normal 7-26 [facility] Comment on above: Order Comment: Speci men Type: BLOOD SPECIMENOrdering Facility: [facility] Address: [address] [place] [address] Performed By: #### 2 1-2 ####[facility] LABORATORYCLIA [id number] [place] [id number] [place] CBC W Auto Differential pane l (Bld)on 09-16-2023 Basophils (Bld) [#/Vol] 10*3/uL Normal <0.11 [facility] Comment on above: Order Comment: Speci men Type: BLOOD SPECIMENOrdering Facility: [facility] Address: [address] [place] [address] Performed By: #### 5 7021-8 ####[facility] LABORATORYCLIA [id number] [place] [address] [place] Basophils/100 WBC (Bld) 0.3 % Normal [facility] Comment on above: Order Comment: Speci men Type: BLOOD SPECIMENOrdering Facility: [facility] Address: [address] [place] [address] Performed By: #### 5 7021-8 ####[facility] LABORATORYCLIA [id number] [address] [place] Differential cell count method Nom (Bld) Auto Normal [facility] Comment on above: Order Comment: Speci men Type: BLOOD SPECIMENOrdering Facility: [facility] Address: [address] [place] [address] Performed By: #### 5 7021-8 ####[facility] LABORATORYCLIA [id number] [place] [address] [place] Eosinophils (Bld) [#/Vol] 0.44 10*3/uL Normal <0.46 [facility] Comment on above: Order Comment: Speci men Type: BLOOD SPECIMENOrdering Facility: [facility] Address: [address] [place] [address] Performed By: #### 5 7021-8 ####[facility] LABORATORYCLIA [id number] [place] [address] [place] Eosinophils/100 WBC (Bld) 6.5 % Normal [facility] Comment on above: Order Comment: Speci men Type: BLOOD SPECIMENOrdering Facility: [facility] Address: [address] [place] [address] Performed By: #### 5 7021-8 ####[facility] LABORATORYCLIA [id number] [place] [id number] [place] Erythrocyte distribution width (RBC) [Ratio] 13.4 % Normal 11.5-15.0 [facility] Comment on above: Order Comment: Speci men Type: BLOOD SPECIMENOrdering Facility: [facility] Address: [address] [place] [address] Performed By: #### 5 7021-8 ####[facility] LABORATORYCLIA [id number] [place] [address] [place] Hematocrit (Bld) [Volume fraction] 37.6 % Normal 36.0-46.0 [facility] Comment on above: Order Comment: Speci men Type: BLOOD SPECIMENOrdering Facility: [facility] Address: [address] [place] [address] Performed By: #### 5 7021-8 ####[facility] LABORATORYCLIA [id number] [place] [address] [place] Hemoglobin (Bld) [Mass/Vol] 12.5 g/dL Normal 11.5-15.5 [facility] Comment on above: Order Comment: Speci men Type: BLOOD SPECIMENOrdering Facility: [facility] Address: [address] [place] [address] Performed By: #### 5 7021-8 ####[facility] LABORATORYCLIA [id number] [place] [address] [place] Immature granulocytes (Bld) [#/Vol] 0.03 10*3/uL Normal <0.10 [facility] Comment on above: Order Comment: Speci men Type: BLOOD SPECIMENOrdering Facility: [facility] Address: [facility] [place] [address] Performed By: #### 5 7021-8 ####[facility] LABORATORYCLIA [id number] [place] [address] [place] Immature granulocytes/100 WBC (Bld) 0.4 % Normal [facility] Comment on above: Order Comment: Speci men Type: BLOOD SPECIMENOrdering Facility: [facility] Address: [address] [place] [address] Performed By: #### 5 7021-8 ####[facility] LABORATORYCLIA [id number] [place] [address] [facility] [place] Lymphocytes (Bld) [#/Vol] 2.24 10*3/uL Normal 1.00-4.00 [facility] Comment on above: Order Comment: Speci men Type: BLOOD SPECIMENOrdering Facility: [facility] Address: [address] [place] [address] Performed By: #### 5 7021-8 ####[facility] LABORATORYCLIA [id number] [address] [place] Lymphocytes/100 WBC (Bld) 32.8 % Normal [facility] Comment on above: Order Comment: Speci men Type: BLOOD SPECIMENOrdering Facility: [facility] Address: [address] [place] [address] Performed By: #### 5 7021-8 ####[facility] LABORATORYCLIA [id number] [place] [address] [place] MCH (RBC) [Entitic mass] 27.9 pg Normal 26.0-34.0 [facility] Comment on above: Order Comment: Speci men Type: BLOOD SPECIMENOrdering Facility: [facility] Address: [address] [place] [address] Performed By: #### 5 7021-8 ####[facility] LABORATORYCLIA [id number] [place] [address] [place] MCHC (RBC) [Mass/Vol] 33.2 g/dL Normal 30.5-36.0 [facility] Comment on above: Order Comment: Speci men Type: BLOOD SPECIMENOrdering Facility: [facility] Address: [address] [place] [address] Performed By: #### 5 7021-8 ####[facility] LABORATORYCLIA [id number] [place] [address] [place] MCV (RBC) [Entitic vol] 83.9 fL Normal 80.0-100.0 [facility] Comment on above: Order Comment: Speci men Type: BLOOD SPECIMENOrdering Facility: [facility] Address: [address] [place] [address] Performed By: #### 5 7021-8 ####[facility] LABORATORYCLIA [id number] [place] [address] [place] Monocytes (Bld) [#/Vol] 0.86 10*3/uL Normal <0.87 [facility] Comment on above: Order Comment: Speci men Type: BLOOD SPECIMENOrdering Facility: [facility] Address: [address] [place] [address] Performed By: #### 5 7021-8 ####[facility] LABORATORYCLIA [id number] [address] [place] Monocytes/100 WBC (Bld) 12.6 % Normal [facility] Comment on above: Order Comment: Speci men Type: BLOOD SPECIMENOrdering Facility: [facility] Address: [address] [place] [address] Performed By: #### 5 7021-8 ####[facility] LABORATORYCLIA [id number] [place] [address] [place] Neutrophils (Bld) [#/Vol] 3.23 10*3/uL Normal 1.45-7.50 [facility] Comment on above: Order Comment: Speci men Type: BLOOD SPECIMENOrdering Facility: [facility] Address: [address] [place] [address] Performed By: #### 5 7021-8 ####[facility] LABORATORYCLIA [id number] [place] [address] [place] Neutrophils/100 WBC (Bld) 47.4 % Normal [facility] Comment on above: Order Comment: Speci men Type: BLOOD SPECIMENOrdering Facility: [facility] Address: [address] [place], [place] [address] Performed By: #### 5 7021-8 ####[facility] LABORATORYCLIA [id number] [address] [place] Nucleated RBC (Bld) [#/Vol] 10*3/uL Normal <0.01 [facility] Comment on above: Order Comment: Speci men Type: BLOOD SPECIMENOrdering Facility: [facility] Address: [address] [place] [address] Performed By: #### 5 7021-8 ####[facility] LABORATORYCLIA [id number] [address] [place] Nucleated RBC/100 WBC (Bld) [Ratio] 0.0 /100 WBC Normal [facility] Comment on above: Order Comment: Speci men Type: BLOOD SPECIMENOrdering Facility: [facility] Address: [address] [place] [address] Performed By: #### 5 7021-8 ####[facility] LABORATORYCLIA [id number] [place] [address] [place] Platelet mean volume (Bld) [Entitic vol] 9.8 fL Normal 9.0-12.7 [facility] Comment on above: Order Comment: Speci men Type: BLOOD SPECIMENOrdering Facility: [facility] Address: [address] [place] [address] Performed By: #### 5 7021-8 ####[facility] LABORATORYCLIA [id number] [place] [address] [place] Platelets (Bld) [#/Vol] 116 10*3/uL Low 150-400 [facility] Comment on above: Order Comment: Speci men Type: BLOOD SPECIMENOrdering Facility: [facility] Address: [address] [place] [address] Result Comment: No c lot detected. Performed By: #### 5 7021-8 ####[facility] LABORATORYCLIA [id number] [place] [id number] [place] RBC (Bld) [#/Vol] 4.48 10*6/uL Normal 3.90-5.20 [facility] Comment on above: Order Comment: Speci men Type: BLOOD SPECIMENOrdering Facility: [facility] Address: [address] [place] [address] Performed By: #### 5 7021-8 ####[facility] LABORATORYCLIA [id number] [place] [id number] [place] WBC (Bld) [#/Vol] 6.82 10*3/uL Normal 3.70-11.00 [facility] Comment on above: Order Comment: Speci men Type: BLOOD SPECIMENOrdering Facility: [facility] Address: [address] [place] [address] Performed By: #### 5 7021-8 ####[facility] LABORATORYCLIA [id number] [place] [id number] [facility] [place] THERAPY NTon 09-16-2023 THERAPY NT Normal [facility] THERAPY NT Normal [facility] Basic metabolic 2000 panelon 09-15-2023 Anion gap [Moles/Vol] 6 mmol/L Normal 5-16 [facility] Comment on above: Order Comment: Speci men Type: BLOOD SPECIMENOrdering Facility: [facility] Address: [address] [place] [address] Performed By: #### 2 4321-2 ####[facility] LABORATORYCLIA [id number] [place] [id number] [place] Calcium [Mass/Vol] 9.8 mg/dL Normal 8.5-10.5 [facility] Comment on above: Order Comment: Speci men Type: BLOOD SPECIMENOrdering Facility: [facility] Address: [address] [place] [address] Performed By: #### 2 4321-2 ####[facility] LABORATORYCLIA [id number] [place] [id number] [place] Chloride [Moles/Vol] 107 mmol/L Normal 98-107 [facility] Comment on above: Order Comment: Speci men Type: BLOOD SPECIMENOrdering Facility: [facility] Address: [address] [place] [address] Performed By: #### 2 4321-2 ####[facility] LABORATORYCLIA [id number] [place] [address] [place] CO2 [Moles/Vol] 27 mmol/L Normal 21-32 [facility] Comment on above: Order Comment: Speci men Type: BLOOD SPECIMENOrdering Facility: [facility] Address: [address] [place] [address] Performed By: #### 2 4321-2 ####[facility] LABORATORYCLIA [id number] [place] [address] [place] Creatinine [Mass/Vol] 0.60 mg/dL Normal 0.51-0.95 [facility] Comment on above: Order Comment: Speci men Type: BLOOD SPECIMENOrdering Facility: [facility] Address: [address] [place] [address] Result Comment: Linn ents receiving either N-Acetylcysteine (NAC) or Metamizole prior to venipuncture, may have falsely depressed results. Performed By: #### 2 4321-2 ####[facility] LABORATORYCLIA [id number] [address] STATES [facility] Creatinine and Glomerular filtration rate.predicted panel (S/P/Bld) 89 mL/min/1.73m??? Normal >=60 [facility] Comment on above: Order Comment: Speci men Type: BLOOD SPECIMENOrdering Facility: [facility] Address: [address] [place] [address] Result Comment: Esme mated Glomerular Filtration Rate (eGFR) is calculated using the 2020 CKD-EPI creatinine equation. This equation utilizes serum creatinine, sex, and age as parameters. The creatinine assay has traceable calibration to isotope dilution-mass spectrometry. Refer to KDIGO guidelines for clinical interpretation. In patients with unstable renal function, e.g. those with acute kidney injury, the eGFR may not accurately reflect actual GFR. Performed By: #### 2 4321-2 ####[facility] LABORATORYCLIA [id number] [place] [id number] [place] Glucose [Mass/Vol] 92 mg/dL Normal 70-100 [facility] Comment on above: Order Comment: Brady smith Type: BLOOD SPECIMENOrdering Facility: [facility] Address: [address] [place] [id number] Result Comment: The [place] [employer] (ADA) provides guidance for cutoff values for fasting glucose and random glucose. The ADA defines fasting as no caloric intake for at least 8 hours. Fasting plasma glucose results between 100 to 125 mg/dL indicate increased risk for diabetes (prediabetes).Fasting plasma glucose results greater than or equal to 126 mg/dL meet the criteria for diagnosis of diabetes. In the absence of unequivocal hyperglycemia, results should be confirmed by repeat testing. In a patient with classic symptoms of hyperglycemia or hyperglycemic crisis, random plasma glucose results greater than or equal to 200 mg/dL meet the criteria for diagnosis of diabetes.Reference: Standards of Medical Care in Diabetes 2016, [place] [employer]. Diabetes Care. 2016.39(Suppl 1).Results may be falsely elevated after the administration of Sulfapyridine.Results may be falsely depressed after the administration of Sulfasalazine. Performed By: #### 2 4321-2 ####[facility] LABORATORYCLIA [id number] [place] [address] [place] Potassium [Moles/Vol] 3.6 mmol/L Normal 3.5-5.1 [facility] Comment on above: Order Comment: Brady smith Type: BLOOD SPECIMENOrdering Facility: [facility] Address: [address] [place] [id number] Performed By: #### 2 4321-2 ####[facility] LABORATORYCLIA [id number] [place] [address] [place] Sodium [Moles/Vol] 140 mmol/L Normal 136-145 [facility] Comment on above: Order Comment: Brady smith Type: BLOOD SPECIMENOrdering Facility: [facility] Address: [address] [place] [id number] Performed By: #### 2 4321-2 ####[facility] LABORATORYCLIA [id number] [place] [id number] [place] Urea nitrogen [Mass/Vol] 6 mg/dL Low 7-26 [facility] Comment on above: Order Comment: Speci men Type: BLOOD SPECIMENOrdering Facility: [facility] Address: [address] [place] [address] Performed By: #### 2 4321-2 ####[facility] LABORATORYCLIA [id number] [address] OF [facility] CASE MGT INIT ASSESon 2023 CASE MGT INIT ASSES Normal [facility] CBC W Auto Differential pane l (Bld)on 09-15-2023 Basophils (Bld) [#/Vol] 0.03 10*3/uL Normal <0.11 [facility] Comment on above: Order Comment: Speci men Type: BLOOD SPECIMENOrdering Facility: [facility] Address: [address] [place] [address] Performed By: #### 5 7021-8 ####[facility] LABORATORYCLIA [id number] [place] [address] [place] Basophils/100 WBC (Bld) 0.4 % Normal [facility] Comment on above: Order Comment: Speci men Type: BLOOD SPECIMENOrdering Facility: [facility] Address: [address] [place] [address] Performed By: #### 5 7021-8 ####[facility] LABORATORYCLIA [id number] [place] [address] [place] Differential cell count method Nom (Bld) Auto Normal [facility] Comment on above: Order Comment: Speci men Type: BLOOD SPECIMENOrdering Facility: [facility] Address: [address] [place] [address] Performed By: #### 5 7021-8 ####[facility] LABORATORYCLIA [id number] [place] [address] [place] Eosinophils (Bld) [#/Vol] 0.27 10*3/uL Normal <0.46 [facility] Comment on above: Order Comment: Speci men Type: BLOOD SPECIMENOrdering Facility: [facility] Address: [address] [place] [address] Performed By: #### 5 7021-8 ####[facility] LABORATORYCLIA [id number] [place] [address] [place] Eosinophils/100 WBC (Bld) 3.3 % Normal [facility] Comment on above: Order Comment: Speci men Type: BLOOD SPECIMENOrdering Facility: [facility] Address: [address] [place] [address] Performed By: #### 5 7021-8 ####[facility] LABORATORYCLIA [id number] [place] [address] [place] Erythrocyte distribution width (RBC) [Ratio] 13.2 % Normal 11.5-15.0 [facility] Comment on above: Order Comment: Speci men Type: BLOOD SPECIMENOrdering Facility: [facility] Address: [address] [place] [address] Performed By: #### 5 7021-8 ####[facility] LABORATORYCLIA [id number] [address] [place] Hematocrit (Bld) [Volume fraction] 38.5 % Normal 36.0-46.0 [facility] Comment on above: Order Comment: Speci men Type: BLOOD SPECIMENOrdering Facility: [facility] Address: [address] [place] [address] Performed By: #### 5 7021-8 ####[facility] LABORATORYCLIA [id number] [place] [address] [place] Hemoglobin (Bld) [Mass/Vol] 13.2 g/dL Normal 11.5-15.5 [facility] Comment on above: Order Comment: Speci men Type: BLOOD SPECIMENOrdering Facility: [facility] Address: [address] [place] [address] Performed By: #### 5 7021-8 ####[facility] LABORATORYCLIA [id number] [place] [address] [place] Immature granulocytes (Bld) [#/Vol] 0.03 10*3/uL Normal <0.10 [facility] Comment on above: Order Comment: Speci men Type: BLOOD SPECIMENOrdering Facility: [facility] Address: [address] [place] [address] Performed By: #### 5 7021-8 ####[facility] LABORATORYCLIA [id number] [place] [address] [place] Immature granulocytes/100 WBC (Bld) 0.4 % Normal [facility] Comment on above: Order Comment: Speci men Type: BLOOD SPECIMENOrdering Facility: [facility] Address: [address] [place] [address] Performed By: #### 5 7021-8 ####[facility] LABORATORYCLIA [id number] [place] [address] [place] Lymphocytes (Bld) [#/Vol] 1.95 10*3/uL Normal 1.00-4.00 [facility] Comment on above: Order Comment: Speci men Type: BLOOD SPECIMENOrdering Facility: [facility] Address: [address] [place] [address] Performed By: #### 5 7021-8 ####[facility] LABORATORYCLIA [id number] [address] Lymphocytes/100 WBC (Bld) 23.6 % Normal [facility] Comment on above: Order Comment: Speci men Type: BLOOD SPECIMENOrdering Facility: [facility] Address: [address] [place] [address] Performed By: #### 5 7021-8 ####[facility] LABORATORYCLIA [id number] [place] [address] [place] MCH (RBC) [Entitic mass] 28.2 pg Normal 26.0-34.0 [facility] Comment on above: Order Comment: Speci men Type: BLOOD SPECIMENOrdering Facility: [facility] Address: [address] [place] [address] Performed By: #### 5 7021-8 ####[facility] LABORATORYCLIA [id number] [place] [address] [place] MCHC (RBC) [Mass/Vol] 34.3 g/dL Normal 30.5-36.0 [facility] Comment on above: Order Comment: Speci men Type: BLOOD SPECIMENOrdering Facility: [facility] Address: [address] [place] [address] Performed By: #### 5 7021-8 ####[facility] LABORATORYCLIA [id number] [place] [address] [place] MCV (RBC) [Entitic vol] 82.3 fL Normal 80.0-100.0 [facility] Comment on above: Order Comment: Speci men Type: BLOOD SPECIMENOrdering Facility: [facility] Address: [address] [place] [address] Performed By: #### 5 7021-8 ####[facility] LABORATORYCLIA [id number] [place] [address] [place] Monocytes (Bld) [#/Vol] 1.03 10*3/uL High <0.87 [facility] Comment on above: Order Comment: Speci men Type: BLOOD SPECIMENOrdering Facility: [facility] Address: [address] [place] [address] Performed By: #### 5 7021-8 ####[facility] LABORATORYCLIA [id number] [address] [place] Monocytes/100 WBC (Bld) 12.5 % Normal [facility] Comment on above: Order Comment: Speci men Type: BLOOD SPECIMENOrdering Facility: [facility] Address: [address] [place] [address] Performed By: #### 5 7021-8 ####[facility] LABORATORYCLIA [id number] [place] [address] [place] Neutrophils (Bld) [#/Vol] 4.94 10*3/uL Normal 1.45-7.50 [facility] Comment on above: Order Comment: Speci men Type: BLOOD SPECIMENOrdering Facility: [facility] Address: [address] [place] [address] Performed By: #### 5 7021-8 ####[facility] LABORATORYCLIA [id number] [place] [id number] [place] Neutrophils/100 WBC (Bld) 59.8 % Normal [facility] Comment on above: Order Comment: Speci men Type: BLOOD SPECIMENOrdering Facility: [facility] Address: [address] [place] [address] Performed By: #### 5 7021-8 ####[facility] LABORATORYCLIA [id number] [place] [address] [place] Nucleated RBC (Bld) [#/Vol] 10*3/uL Normal <0.01 [facility] Comment on above: Order Comment: Speci men Type: BLOOD SPECIMENOrdering Facility: [facility] Address: [address] [place] [address] Performed By: #### 5 7021-8 ####[facility] LABORATORYCLIA [id number] [place] [address] [place] Nucleated RBC/100 WBC (Bld) [Ratio] 0.0 /100 WBC Normal [facility] Comment on above: Order Comment: Speci men Type: BLOOD SPECIMENOrdering Facility: [facility] Address: [address] [place] [address] Performed By: #### 5 7021-8 ####[facility] LABORATORYCLIA [id number] [place] [id number] [place] Platelet mean volume (Bld) [Entitic vol] 9.5 fL Normal 9.0-12.7 [facility] Comment on above: Order Comment: Speci men Type: BLOOD SPECIMENOrdering Facility: [facility] Address: [address] [place] [address] Performed By: #### 5 7021-8 ####[facility] LABORATORYCLIA [id number] [place] [id number] [place] Platelets (Bld) [#/Vol] 136 10*3/uL Low 150-400 [facility] Comment on above: Order Comment: Speci men Type: BLOOD SPECIMENOrdering Facility: [facility] Address: [address] [place] [address] Result Comment: No c lot detected. Performed By: #### 5 7021-8 ####[facility] LABORATORYCLIA [id number] [address] RBC (Bld) [#/Vol] 4.68 10*6/uL Normal 3.90-5.20 [facility] Comment on above: Order Comment: Speci men Type: BLOOD SPECIMENOrdering Facility: [facility] Address: [address] [place] [address] Performed By: #### 5 7021-8 ####[facility] LABORATORYCLIA [id number] [place] [id number] [facility] WBC (Bld) [#/Vol] 8.25 10*3/uL Normal 3.70-11.00 [facility] Comment on above: Order Comment: Speci men Type: BLOOD SPECIMENOrdering Facility: [facility] Address: [address] [place] [address] Performed By: #### 5 7021-8 ####[facility] LABORATORYCLIA [id number] [place] [id number] [facility] NUTRITIONon 09-15-2023 NUTRITION Normal [facility] THERAPY NTon 09-15-2023 THERAPY NT Normal [facility] THERAPY NT Normal [facility] Ammonia Plas-sCncon 09-14-19 24 Ammonia (P) [Moles/Vol] 22 umol/L Normal 11-32 [facility] Comment on above: Order Comment: Speci men Type: BLOOD SPECIMENOrdering Facility: [facility] Address: [address] [place] [address] Result Comment: Resu lts may be falsely depressed after the administration of Sulfapyridine. Results may be falsely elevated after the administration of Sulfasalazine. Performed By: #### 1 6362-6 ####[facility] LABORATORYCLIA [id number] [place] [id number] [place] Basic metabolic 2000 panelon 07-07-2024 Anion gap [Moles/Vol] 10 mmol/L Normal 5-16 [facility] Comment on above: Order Comment: Speci men Type: BLOOD SPECIMENOrdering Facility: [facility] Address: [facility] [place] [address] Performed By: #### 2 4321-2, ####[facility] LABORATORYCLIA [id number] [place] [address] [place] Calcium [Mass/Vol] 10.1 mg/dL Normal 8.5-10.5 [facility] Comment on above: Order Comment: Speci men Type: BLOOD SPECIMENOrdering Facility: [facility] Address: [address] [place] [address] Performed By: #### 2 4321-2, ####[facility] LABORATORYCLIA [id number] [place] [id number] [place] Chloride [Moles/Vol] 102 mmol/L Normal 98-107 [facility] Comment on above: Order Comment: Speci men Type: BLOOD SPECIMENOrdering Facility: [facility] Address: [address] [place] [address] Performed By: #### 2 4321-2, ####[facility] LABORATORYCLIA [id number] [place] [id number] [place] CO2 [Moles/Vol] 27 mmol/L Normal 21-32 [facility] Comment on above: Order Comment: Speci men Type: BLOOD SPECIMENOrdering Facility: [facility] Address: [address] [place] [address] Performed By: #### 2 4321-2, ####[facility] LABORATORYCLIA [id number] [place] [id number] [place] Creatinine [Mass/Vol] 0.66 mg/dL Normal 0.51-0.95 [facility] Comment on above: Order Comment: Speci men Type: BLOOD SPECIMENOrdering Facility: [facility] Address: [address] [place] [address] Result Comment: Linn ents receiving either N-Acetylcysteine (NAC) or Metamizole prior to venipuncture, may have falsely depressed results. Performed By: #### 2 4321-2, 63114-8 ####[facility] LABORATORYCLIA [id number] [place] [id number] [place] Creatinine and Glomerular filtration rate.predicted panel (S/P/Bld) 87 mL/min/1.73m??? Normal >=60 [facility] Comment on above: Order Comment: Brady smith Type: BLOOD SPECIMENOrdering Facility: [facility] Address: [address] [place] [address] Result Comment: Esme mated Glomerular Filtration Rate (eGFR) is calculated using the 2020 CKD-EPI creatinine equation. This equation utilizes serum creatinine, sex, and age as parameters. The creatinine assay has traceable calibration to isotope dilution-mass spectrometry. Refer to KDIGO guidelines for clinical interpretation. In patients with unstable renal function, e.g. those with acute kidney injury, the eGFR may not accurately reflect actual GFR. Performed By: #### 2 4321-2, 65795-5 ####[facility] LABORATORYCLIA [id number] [place] [address] [place] Glucose [Mass/Vol] 97 mg/dL Normal 70-100 [facility] Comment on above: Order Comment: Brady smith Type: BLOOD SPECIMENOrdering Facility: [facility] Address: [address] [place] [address] Result Comment: The [place] [employer] (ADA) provides guidance for cutoff values for fasting glucose and random glucose. The ADA defines fasting as no caloric intake for at least 8 hours. Fasting plasma glucose results between 100 to 125 mg/dL indicate increased risk for diabetes (prediabetes).Fasting plasma glucose results greater than or equal to 126 mg/dL meet the criteria for diagnosis of diabetes. In the absence of unequivocal hyperglycemia, results should be confirmed by repeat testing. In a patient with classic symptoms of hyperglycemia or hyperglycemic crisis, random plasma glucose results greater than or equal to 200 mg/dL meet the criteria for diagnosis of diabetes.Reference: Standards of Medical Care in Diabetes 2016, [place] [employer]. Diabetes Care. 2016.39(Suppl 1).Results may be falsely elevated after the administration of Sulfapyridine.Results may be falsely depressed after the administration of Sulfasalazine. Performed By: #### 2 4321-2, ####[facility] LABORATORYCLIA [id number] [place] [id number] [place] Potassium [Moles/Vol] 3.4 mmol/L Low 3.5-5.1 [facility] Comment on above: Order Comment: Speci men Type: BLOOD SPECIMENOrdering Facility: [facility] Address: [address] [place] [address] Performed By: #### 2 432-2, ####[facility] LABORATORYCLIA [id number] [place] [id number] [place] Sodium [Moles/Vol] 139 mmol/L Normal 136-145 [facility] Comment on above: Order Comment: Speci men Type: BLOOD SPECIMENOrdering Facility: [facility] Address: [address] [place] [address] Performed By: #### 2 432-2, ####[facility] LABORATORYCLIA [id number] [place] [address] [place] Urea nitrogen [Mass/Vol] 8 mg/dL Normal 7-26 [facility] Comment on above: Order Comment: Speci men Type: BLOOD SPECIMENOrdering Facility: [facility] Address: [address] [place] [address] Performed By: #### 2 432-2, ####[facility] LABORATORYCLIA [id number] [place] [id number] [place] CBC panel Auto (Bld)on 09-13 Erythrocyte distribution width (RBC) [Ratio] 12.9 % Normal 11.5-15.0 [facility] Comment on above: Order Comment: Speci men Type: BLOOD SPECIMENOrdering Facility: [facility] Address: [address] [place] [address] Performed By: #### 5 8410-2 ####[facility] LABORATORYCLIA [id number] [place] [address] [place] Hematocrit (Bld) [Volume fraction] 40.6 % Normal 36.0-46.0 [facility] Comment on above: Order Comment: Speci men Type: BLOOD SPECIMENOrdering Facility: [facility] Address: [address] [place] [address] Performed By: #### 5 8410-2 ####[facility] LABORATORYCLIA [id number] [place] [address] [place] Hemoglobin (Bld) [Mass/Vol] 13.8 g/dL Normal 11.5-15.5 [facility] Comment on above: Order Comment: Speci men Type: BLOOD SPECIMENOrdering Facility: [facility] Address: [address] [place] [address] Performed By: #### 5 8410-2 ####[facility] LABORATORYCLIA [id number] [place] [address] [place] MCH (RBC) [Entitic mass] 27.8 pg Normal 26.0-34.0 [facility] Comment on above: Order Comment: Speci men Type: BLOOD SPECIMENOrdering Facility: [facility] Address: [address] [place] [address] Performed By: #### 5 8410-2 ####[facility] LABORATORYCLIA [id number] [place] [address] [place] MCHC (RBC) [Mass/Vol] 34.0 g/dL Normal 30.5-36.0 [facility] Comment on above: Order Comment: Speci men Type: BLOOD SPECIMENOrdering Facility: [facility] Address: [address] [place], [place] [address] Performed By: #### 5 8410-2 ####[facility] LABORATORYCLIA [id number] [place] [address] [place] MCV (RBC) [Entitic vol] 81.7 fL Normal 80.0-100.0 [facility] Comment on above: Order Comment: Speci men Type: BLOOD SPECIMENOrdering Facility: [facility] Address: [address] [place] [address] Performed By: #### 5 8410-2 ####[facility] LABORATORYCLIA [id number] [place] [id number] [place] Nucleated RBC (Bld) [#/Vol] 10*3/uL Normal <0.01 [facility] Comment on above: Order Comment: Speci men Type: BLOOD SPECIMENOrdering Facility: [facility] Address: [address] [place] [address] Performed By: #### 5 8410-2 ####[facility] LABORATORYCLIA [id number] [place] [address] [place] Platelet mean volume (Bld) [Entitic vol] 9.9 fL Normal 9.0-12.7 [facility] Comment on above: Order Comment: Speci men Type: BLOOD SPECIMENOrdering Facility: [facility] Address: [address] [place] [address] Performed By: #### 5 8410-2 ####[facility] LABORATORYCLIA [id number] [place] [address] [place] Platelets (Bld) [#/Vol] 156 10*3/uL Normal 150-400 [facility] Comment on above: Order Comment: Speci men Type: BLOOD SPECIMENOrdering Facility: [facility] Address: [address] [place] [address] Performed By: #### 5 8410-2 ####[facility] LABORATORYCLIA [id number] [place] [address] [place] RBC (Bld) [#/Vol] 4.97 10*6/uL Normal 3.90-5.20 [facility] Comment on above: Order Comment: Speci men Type: BLOOD SPECIMENOrdering Facility: [facility] Address: [address] [place] [address] Performed By: #### 5 8410-2 ####[facility] LABORATORYCLIA [id number] [place] [id number] [place] WBC (Bld) [#/Vol] 7.41 10*3/uL Normal 3.70-11.00 [facility] Comment on above: Order Comment: Speci men Type: BLOOD SPECIMENOrdering Facility: [facility] Address: [address] [place] [address] Performed By: #### 5 8410-2 ####[facility] LABORATORYCLIA [id number] [place] [id number] [place] Magnesium SerPl-mCncon 09-13 Magnesium [Mass/Vol] 1.9 mg/dL Normal 1.6-2.6 [facility] Comment on above: Order Comment: Speci men Type: BLOOD SPECIMENOrdering Facility: [facility] Address: [address] [place] [address] Performed By: #### 2 4321-2, 75185-7 ####[facility] LABORATORYCLIA [id number] [place] [id number] [place] CBC W Auto Differential pane l (Bld)on 09-13-2023 Basophils (Bld) [#/Vol] 10*3/uL Normal <0.11 [facility] Comment on above: Order Comment: Speci men Type: BLOOD SPECIMENOrdering Facility: [facility] Address: [address] [place] [address] Performed By: #### 5 7021-8 ####[facility] LABORATORYCLIA [id number] [place] [id number] [place] Basophils/100 WBC (Bld) 0.2 % Normal [facility] Comment on above: Order Comment: Speci men Type: BLOOD SPECIMENOrdering Facility: [facility] Address: [address] [place] [address] Performed By: #### 5 7021-8 ####[facility] LABORATORYCLIA [id number] [address] STATES OF [facility] Differential cell count method Nom (Bld) Auto Normal [facility] Comment on above: Order Comment: Speci men Type: BLOOD SPECIMENOrdering Facility: [facility] Address: [address] [place] [address] Performed By: #### 5 7021-8 ####[facility] LABORATORYCLIA [id number] [place] [id number] [place] Eosinophils (Bld) [#/Vol] 0.10 10*3/uL Normal <0.46 [facility] Comment on above: Order Comment: Speci men Type: BLOOD SPECIMENOrdering Facility: [facility] Address: [address] [place] [address] Performed By: #### 5 7021-8 ####[facility] LABORATORYCLIA [id number] [place] [address] [place] Eosinophils/100 WBC (Bld) 1.2 % Normal [facility] Comment on above: Order Comment: Speci men Type: BLOOD SPECIMENOrdering Facility: [facility] Address: [address] [place] [address] Performed By: #### 5 7021-8 ####[facility] LABORATORYCLIA [id number] [address] [place] Erythrocyte distribution width (RBC) [Ratio] 12.9 % Normal 11.5-15.0 [facility] Comment on above: Order Comment: Speci men Type: BLOOD SPECIMENOrdering Facility: [facility] Address: [address] [place] [address] Performed By: #### 5 7021-8 ####[facility] LABORATORYCLIA [id number] [place] [address] [place] Hematocrit (Bld) [Volume fraction] 40.0 % Normal 36.0-46.0 [facility] Comment on above: Order Comment: Speci men Type: BLOOD SPECIMENOrdering Facility: [facility] Address: [address] [place] [address] Performed By: #### 5 7021-8 ####[facility] LABORATORYCLIA [id number] [place] [id number] [place] Hemoglobin (Bld) [Mass/Vol] 14.2 g/dL Normal 11.5-15.5 [facility] Comment on above: Order Comment: Speci men Type: BLOOD SPECIMENOrdering Facility: [facility] Address: [address] [place] [address] Performed By: #### 5 7021-8 ####[facility] LABORATORYCLIA [id number] [address] [place] Immature granulocytes (Bld) [#/Vol] 0.03 10*3/uL Normal <0.10 [facility] Comment on above: Order Comment: Speci men Type: BLOOD SPECIMENOrdering Facility: [facility] Address: [address] [place] [address] Performed By: #### 5 7021-8 ####[facility] LABORATORYCLIA [id number] [address] Immature granulocytes/100 WBC (Bld) 0.4 % Normal [facility] Comment on above: Order Comment: Speci men Type: BLOOD SPECIMENOrdering Facility: [facility] Address: [address] [place] [address] Performed By: #### 5 7021-8 ####[facility] LABORATORYCLIA [id number] [place] [address] [place] Lymphocytes (Bld) [#/Vol] 1.23 10*3/uL Normal 1.00-4.00 [facility] Comment on above: Order Comment: Speci men Type: BLOOD SPECIMENOrdering Facility: [facility] Address: [address] [place] [address] Performed By: #### 5 7021-8 ####[facility] LABORATORYCLIA [id number] [address] [place] Lymphocytes/100 WBC (Bld) 14.9 % Normal [facility] Comment on above: Order Comment: Speci men Type: BLOOD SPECIMENOrdering Facility: [facility] Address: [address] [place] [address] Performed By: #### 5 7021-8 ####[facility] LABORATORYCLIA [id number] [place] [address] [place] MCH (RBC) [Entitic mass] 28.6 pg Normal 26.0-34.0 [facility] Comment on above: Order Comment: Speci men Type: BLOOD SPECIMENOrdering Facility: [facility] Address: [address] [place] [address] Performed By: #### 5 7021-8 ####[facility] LABORATORYCLIA [id number] [place] [address] [place] MCHC (RBC) [Mass/Vol] 35.5 g/dL Normal 30.5-36.0 [facility] Comment on above: Order Comment: Speci men Type: BLOOD SPECIMENOrdering Facility: [facility] Address: [address] [place] [address] Performed By: #### 5 7021-8 ####[facility] LABORATORYCLIA [id number] [address] [place] MCV (RBC) [Entitic vol] 80.6 fL Normal 80.0-100.0 [facility] Comment on above: Order Comment: Speci men Type: BLOOD SPECIMENOrdering Facility: [facility] Address: [address] [place] [address] Performed By: #### 5 7021-8 ####[facility] LABORATORYCLIA [id number] [address] [place] Monocytes (Bld) [#/Vol] 0.92 10*3/uL High <0.87 [facility] Comment on above: Order Comment: Speci men Type: BLOOD SPECIMENOrdering Facility: [facility] Address: [address] [place] [address] Performed By: #### 5 7021-8 ####[facility] LABORATORYCLIA [id number] [address] [place] Monocytes/100 WBC (Bld) 11.1 % Normal [facility] Comment on above: Order Comment: Speci men Type: BLOOD SPECIMENOrdering Facility: [facility] Address: [address] [place] [address] Performed By: #### 5 7021-8 ####[facility] LABORATORYCLIA [id number] [place] [address] [place] Neutrophils (Bld) [#/Vol] 5.98 10*3/uL Normal 1.45-7.50 [facility] Comment on above: Order Comment: Speci men Type: BLOOD SPECIMENOrdering Facility: [facility] Address: [address] [place] [address] Performed By: #### 5 7021-8 ####[facility] LABORATORYCLIA [id number] [place] [id number] [place] Neutrophils/100 WBC (Bld) 72.2 % Normal [facility] Comment on above: Order Comment: Speci men Type: BLOOD SPECIMENOrdering Facility: [facility] Address: [address] [place] [address] Performed By: #### 5 7021-8 ####[facility] LABORATORYCLIA [id number] [place] [address] [place] Nucleated RBC (Bld) [#/Vol] 10*3/uL Normal <0.01 [facility] Comment on above: Order Comment: Speci men Type: BLOOD SPECIMENOrdering Facility: [facility] Address: [address] [place] [address] Performed By: #### 5 7021-8 ####[facility] LABORATORYCLIA [id number] [place] [id number] [place] Nucleated RBC/100 WBC (Bld) [Ratio] 0.0 /100 WBC Normal [facility] Comment on above: Order Comment: Speci men Type: BLOOD SPECIMENOrdering Facility: [facility] Address: [address] [place] [address] Performed By: #### 5 7021-8 ####[facility] LABORATORYCLIA [id number] [place] [address] [place] Platelet mean volume (Bld) [Entitic vol] 9.6 fL Normal 9.0-12.7 [facility] Comment on above: Order Comment: Speci men Type: BLOOD SPECIMENOrdering Facility: [facility] Address: [address] [place] [id number] Performed By: #### 5 7021-8 ####[facility] LABORATORYCLIA [id number] [place] [address] [facility] Platelets (Bld) [#/Vol] 151 10*3/uL Normal 150-400 [facility] Comment on above: Order Comment: Speci men Type: BLOOD SPECIMENOrdering Facility: [facility] Address: [address] [place] [address] Performed By: #### 5 7021-8 ####[facility] LABORATORYCLIA [id number] [place] [address] [facility] RBC (Bld) [#/Vol] 4.96 10*6/uL Normal 3.90-5.20 [facility] Comment on above: Order Comment: Speci men Type: BLOOD SPECIMENOrdering Facility: [facility] Address: [address] [place], [place] [address] Performed By: #### 5 7021-8 ####[facility] LABORATORYCLIA [id number] [place] [address] [facility] WBC (Bld) [#/Vol] 8.28 10*3/uL Normal 3.70-11.00 [facility] Comment on above: Order Comment: Speci men Type: BLOOD SPECIMENOrdering Facility: [facility] Address: [address] [place] [address] Performed By: #### 5 7021-8 ####[facility] LABORATORYCLIA [id number] [place] [address] [facility] Comprehensive metabolic 2000 panelon 09-13-2023 Albumin [Mass/Vol] 3.6 g/dL Normal 3.2-5.0 [facility] Comment on above: Order Comment: Speci men Type: BLOOD SPECIMENOrdering Facility: [facility] Address: [address] [place] [address] Performed By: #### 2 4323-8, 18629-8 ####[facility] LABORATORYCLIA [id number] [place] [address] [place] ALP [Catalytic activity/Vol] 102 U/L Normal 45-117 [facility] Comment on above: Order Comment: Speci men Type: BLOOD SPECIMENOrdering Facility: [facility] Address: [address] [place] [address] Performed By: #### 2 4323-8, 60386-6 ####[facility] LABORATORYCLIA [id number] [place] [address] [place] ALT [Catalytic activity/Vol] 10 U/L Low 13-61 [facility] Comment on above: Order Comment: Speci men Type: BLOOD SPECIMENOrdering Facility: [facility] Address: [address] [place] [address] Result Comment: Resu lts may be falsely depressed after the administration of Sulfasalazine and/or Sulfapyridine. Performed By: #### 2 4323-8, 12062-7 ####[facility] LABORATORYCLIA [id number] [address] [place] Anion gap [Moles/Vol] 9 mmol/L Normal 5-16 [facility] Comment on above: Order Comment: Speci men Type: BLOOD SPECIMENOrdering Facility: [facility] Address: [address] [place] [address] Performed By: #### 2 4323-8, 84280-0 ####[facility] LABORATORYCLIA [id number] [place] [address] [place] AST [Catalytic activity/Vol] 17 U/L Normal 8-34 [facility] Comment on above: Order Comment: Speci men Type: BLOOD SPECIMENOrdering Facility: [facility] Address: [address] [place] [address] Result Comment: Resu lts may be falsely depressed after the administration of Sulfasalazine and/or Sulfapyridine. Performed By: #### 2 4323-8, ####[facility] LABORATORYCLIA [id number] [place] [address] [place] Bilirubin [Mass/Vol] 0.8 mg/dL Normal 0.2-1.0 [facility] Comment on above: Order Comment: Speci men Type: BLOOD SPECIMENOrdering Facility: [facility] Address: [address] [place] [phone] Performed By: #### 2 4323-8, ####[facility] LABORATORYCLIA [id number] [place] [address] [place] Calcium [Mass/Vol] 10.7 mg/dL High 8.5-10.5 [facility] Comment on above: Order Comment: Speci men Type: BLOOD SPECIMENOrdering Facility: [facility] Address: [address] [place] [address] Performed By: #### 2 4323-8, ####[facility] LABORATORYCLIA [id number] [place] [address] [place] Chloride [Moles/Vol] 92 mmol/L Low 98-107 [facility] Comment on above: Order Comment: Speci men Type: BLOOD SPECIMENOrdering Facility: [facility] Address: [address] [place] [address] Performed By: #### 2 4323-8, ####[facility] LABORATORYCLIA [id number] [place] [address] [place] CO2 [Moles/Vol] 33 mmol/L High 21-32 [facility] Comment on above: Order Comment: Speci men Type: BLOOD SPECIMENOrdering Facility: [facility] Address: [address] [place] [address] Performed By: #### 2 4323-8, ####[facility] LABORATORYCLIA [id number] [place] [address] [place] Creatinine [Mass/Vol] 0.99 mg/dL High 0.51-0.95 [facility] Comment on above: Order Comment: Speci men Type: BLOOD SPECIMENOrdering Facility: [facility] Address: [address] [place] [address] Result Comment: Linn ents receiving either N-Acetylcysteine (NAC) or Metamizole prior to venipuncture, may have falsely depressed results. Performed By: #### 2 4323-8, 73857-9 ####[facility] LABORATORYCLIA [id number] [place] [id number] [place] Creatinine and Glomerular filtration rate.predicted panel (S/P/Bld) 56 mL/min/1.73m??? Low >=60 [facility] Comment on above: Order Comment: Brady smith Type: BLOOD SPECIMENOrdering Facility: [facility] Address: [address] [place] [address] Result Comment: Esme mated Glomerular Filtration Rate (eGFR) is calculated using the 2020 CKD-EPI creatinine equation. This equation utilizes serum creatinine, sex, and age as parameters. The creatinine assay has traceable calibration to isotope dilution-mass spectrometry. Refer to KDIGO guidelines for clinical interpretation. In patients with unstable renal function, e.g. those with acute kidney injury, the eGFR may not accurately reflect actual GFR. Performed By: #### 2 4323-8, 04999-5 ####[facility] LABORATORYCLIA [id number] [place] [address] [place] Glucose [Mass/Vol] 103 mg/dL High 70-100 [facility] Comment on above: Order Comment: Brady smith Type: BLOOD SPECIMENOrdering Facility: [facility] Address: [address] [place] [address] Result Comment: The [place] [employer] (ADA) provides guidance for cutoff values for fasting glucose and random glucose. The ADA defines fasting as no caloric intake for at least 8 hours. Fasting plasma glucose results between 100 to 125 mg/dL indicate increased risk for diabetes (prediabetes).Fasting plasma glucose results greater than or equal to 126 mg/dL meet the criteria for diagnosis of diabetes. In the absence of unequivocal hyperglycemia, results should be confirmed by repeat testing. In a patient with classic symptoms of hyperglycemia or hyperglycemic crisis, random plasma glucose results greater than or equal to 200 mg/dL meet the criteria for diagnosis of diabetes.Reference: Standards of Medical Care in Diabetes 2016, [place] [employer]. Diabetes Care. 2016.39(Suppl 1).Results may be falsely elevated after the administration of Sulfapyridine.Results may be falsely depressed after the administration of Sulfasalazine. Performed By: #### 2 4328, ####[facility] LABORATORYCLIA [id number] [place] [address] [place] Potassium [Moles/Vol] 2.7 mmol/L Low 3.5-5.1 [facility] Comment on above: Order Comment: Speci men Type: BLOOD SPECIMENOrdering Facility: [facility] Address: [address] [place] [address] Performed By: #### 2 4328, ####[facility] LABORATORYCLIA [id number] [place] [address] [place] Protein [Mass/Vol] 7.3 g/dL Normal 6.0-8.5 [facility] Comment on above: Order Comment: Speci men Type: BLOOD SPECIMENOrdering Facility: [facility] Address: [address] [place] [address] Performed By: #### 2 43205-15, ####[facility] LABORATORYCLIA [id number] [place] [id number] [place] Sodium [Moles/Vol] 134 mmol/L Low 136-145 [facility] Comment on above: Order Comment: Speci men Type: BLOOD SPECIMENOrdering Facility: [facility] Address: [address] [place] [address] Performed By: #### 2 43205-15, ####[facility] LABORATORYCLIA [id number] [place] [address] [place] Urea nitrogen [Mass/Vol] 18 mg/dL Normal 7-26 [facility] Comment on above: Order Comment: Speci men Type: BLOOD SPECIMENOrdering Facility: [facility] Address: [address] [place] [address] Performed By: #### 2 4323-8, ####[facility] LABORATORYCLIA [id number] [address] OF [facility] ECG COMPLETEon 09-13-2023 ECG COMPLETE Normal [facility] ED NOTEon 09-13-2023 ED NOTE Normal [facility] ED NOTE HNO ID: [id number] Author: LJ HUNTER RN Service: ? Author Type: Registered Nurse Type: ED Notes Filed: 09/13/2023 08:47 Note Text: Bed: 11-ED Expected date: 09/13/23 Expected time: 8:27 AM Means of arrival: Comments: [place] Normal [facility] ED PROV NOTEon 09-13-2023 ED PROV NOTE Normal [facility] HIGH SENSITIVITY TROPONIN Io n 09-13-2023 Tropinin I.cardiac panel High sensitivity method 14.9 pg/mL Normal 0.0-34.0 [facility] Comment on above: Order Comment: Speci men Type: BLOOD SPECIMENOrdering Facility: [facility] Address: [address] [place] [address] Performed By: #### H STROP ####[facility] LABORATORYCLIA [id number] [address] [place] HISTORY PHYSICALon HISTORY PHYSICAL Normal [facility] Magnesium SerPl-mCncon 09-12 Magnesium [Mass/Vol] 1.3 mg/dL Low 1.6-2.6 [facility] Comment on above: Order Comment: Speci men Type: BLOOD SPECIMENOrdering Facility: [facility] Address: [address] [place] [address] Performed By: #### 2 4323-8, 21580-2 ####[facility] LABORATORYCLIA [id number] [address] [place] NURSING PROGon 09-13-2023 NURSING PROG Normal [facility] PT panel Coag (PPP)on 2023 INR Coag (PPP) [Relative time] 1.2 {INR} Normal 0.9-1.3 [facility] Comment on above: Order Comment: Speci men Type: BLOOD SPECIMENOrdering Facility: [facility] Address: [address] [place] [address] Result Comment: Serena min K Antagonist (VKA) Therapeutic Range: INR 2 to 3 (Target INR of 2.5)Note: For patients treated with VKA drugs, such as warfarin, the [place] [employer] 2012 Guideline recommends a therapeutic INR range of 2 to 3 (target INR of 2.5). This recommendation includes high-risk patients with antiphospholipid syndrome with previous arterial or venous thromboembolism, current-generation mechanical or bioprosthetic aortic heart valve replacement.Note: Patients with mechanical aortic valve replacement and additional risk factors for thromboembolic events (atrial fibrillation, previous thromboembolism, LV dysfunction, hypercoagulable conditions) or an older generation mechanical AVR (i.e., ball in-Cage) or any mechanical MVR should have a INR therapeutic range of 2.5 to 3.5 (target INR of 3).Josue GH, et al. Chest 2012, 141:7S-47SNishimeddie RA, et al. [facility] 2017, 70: 252-289 Performed By: #### 3 4528-0, 94815-4 ####[facility] LABORATORYCLIA [id number] [address] STATES OF [facility] PT Coag (PPP) [Time] 12.6 s Normal 9.7-13.0 [facility] Comment on above: Order Comment: Speci men Type: BLOOD SPECIMENOrdering Facility: [facility] Address: [address] [place] [address] Performed By: #### 3 4528-0, 23428-7 ####[facility] LABORATORYCLIA [id number] [address] Urinalysis complete panel (U )on 09-13-2023 Bacteria LM.HPF (Urine sed) [#/Area] Many Abnormal None Seen [facility] Comment on above: Order Comment: Speci men Type: URINE SPECIMENOrdering Facility: [facility] Address: [address] [place] [address] Performed By: #### 2 4356-8 ####[facility] LABORATORYCLIA [id number] [address] [place] Bilirubin Ql (U) Negative Normal Negative [facility] Comment on above: Order Comment: Speci men Type: URINE SPECIMENOrdering Facility: [facility] Address: [address] [place] [address] Performed By: #### 2 4356-8 ####[facility] LABORATORYCLIA [id number] [place] [id number] [facility] [place] Clarity (Unsp spec) Hazy Abnormal Clear [facility] Comment on above: Order Comment: Speci men Type: URINE SPECIMENOrdering Facility: [facility] Address: [address] [place] [address] Performed By: #### 2 4356-8 ####[facility] LABORATORYCLIA [id number] [place] [address] [place] Color (U) Yellow Normal Yellow [facility] Comment on above: Order Comment: Speci men Type: URINE SPECIMENOrdering Facility: [facility] Address: [address] [place] [address] Performed By: #### 2 4356-8 ####[facility] LABORATORYCLIA [id number] [place] [address] [place] Epithelial cells LM.HPF (Urine sed) [#/Area] Few Normal [facility] Comment on above: Order Comment: Speci men Type: URINE SPECIMENOrdering Facility: [facility] Address: [address] [place] [address] Performed By: #### 2 4356-8 ####[facility] LABORATORYCLIA [id number] [place] [address] [place] Glucose Test strip (U) [Mass/Vol] Negative Normal Negative [facility] Comment on above: Order Comment: Speci men Type: URINE SPECIMENOrdering Facility: [facility] Address: [address] [place] [address] Performed By: #### 2 4356-8 ####[facility] LABORATORYCLIA [id number] [place] [id number] [place] Hemoglobin Ql (U) Negative Normal Negative [facility] Comment on above: Order Comment: Speci men Type: URINE SPECIMENOrdering Facility: [facility] Address: [address] [place] [address] Performed By: #### 2 4356-8 ####[facility] LABORATORYCLIA [id number] [address] [place] Ketones Ql (U) Trace Abnormal Negative [facility] Comment on above: Order Comment: Speci men Type: URINE SPECIMENOrdering Facility: [facility] Address: [address] [place] [address] Performed By: #### 2 4356-8 ####[facility] LABORATORYCLIA [id number] [address] [place] Leukocyte esterase Test strip Ql (U) 3+ Abnormal Negative [facility] Comment on above: Order Comment: Speci men Type: URINE SPECIMENOrdering Facility: [facility] Address: [address] [place] [address] Performed By: #### 2 4356-8 ####[facility] LABORATORYCLIA [id number] [place] [address] [place] Nitrite Ql (U) Negative Normal Negative [facility] Comment on above: Order Comment: Speci men Type: URINE SPECIMENOrdering Facility: [facility] Address: [address] [place] [address] Performed By: #### 2 4356-8 ####[facility] LABORATORYCLIA [id number] [place] [address] [place] pH (U) 6.0 [pH] Normal 5.0-8.0 [facility] Comment on above: Order Comment: Speci men Type: URINE SPECIMENOrdering Facility: [facility] Address: [address] [place] [address] Performed By: #### 2 4356-8 ####[facility] LABORATORYCLIA [id number] [address] [place] Protein (U) [Mass/Vol] Negative Normal Negative [facility] Comment on above: Order Comment: Speci men Type: URINE SPECIMENOrdering Facility: [facility] Address: [address] [place], [place] [address] Performed By: #### 2 4356-8 ####[facility] LABORATORYCLIA [id number] [place] [address] [place] RBC LM.HPF (Urine sed) [#/Area] 6-10 /HPF Abnormal 0-3 /HPF [facility] Comment on above: Order Comment: Speci men Type: URINE SPECIMENOrdering Facility: [facility] Address: [address] [place] [address] Performed By: #### 2 4356-8 ####[facility] LABORATORYCLIA [id number] [place] [address] [place] Specific gravity (U) [Rel density] 1.012 Normal 1.005-1.030 [facility] Comment on above: Order Comment: Speci men Type: URINE SPECIMENOrdering Facility: [facility] Address: [address] [place] [address] Performed By: #### 2 4356-8 ####[facility] LABORATORYCLIA [id number] [address] Urobilinogen Ql (U) Negative Normal Negative [facility] Comment on above: Order Comment: Speci men Type: URINE SPECIMENOrdering Facility: [facility] Address: [address] [place] [address] Performed By: #### 2 4356-8 ####[facility] LABORATORYIA [id number] [place] [address] [place] WBC LM.HPF (Urine sed) [#/Area] /[HPF] Abnormal 0-5 /HPF [facility] Comment on above: Order Comment: Speci men Type: URINE SPECIMENOrdering Facility: [facility] Address: [address] [place] [address] Performed By: #### 2 4356-8 ####[facility] LABORATORYCLIA [id number] [address] [place] Urinalysis complete pnl Uron 09-13-2023 Urinalysis complete panel (U) Normal [facility] Comment on above: Order Comment: Speci men Type: URINE SPECIMENOrdering Facility: [facility] Address: [address] [place] [address] Performed By: #### 2 4356-8 ####[facility] LABORATORYCLIA [id number] [place] [address] [place] aPTT PPPon 09-13-2023 aPTT Coag (PPP) [Time] 33.5 s High 23.0-32.4 [facility] Comment on above: Order Comment: Speci men Type: BLOOD SPECIMENOrdering Facility: [facility] Address: [address] [place], [place] [address] Performed By: #### 3 4528-0, 50818-1 ####[facility] LABORATORYCLIA [id number] [place] [address] [facility] .Auto Diffon 09-03-2023 Basophil, Absolute 0.0 10 3/mcL Normal 0.0-0.3 [facility] ([place]) Comment on above: Performed By: #### B MP, GFR, TSH #### [address] [address] Basophils/100 WBC (Bld) 0.1 % Normal 0.0-2.5 [facility] ([place]) Comment on above: Performed By: #### B MP, GFR, TSH #### [address] [address] Eosinophil, Absolute 0.3 10 3/mcL Normal 0.0-0.7 [facility] ([place]) Comment on above: Performed By: #### B MP, GFR, TSH #### [address] [address] Eosinophils/100 WBC (Bld) 4.7 % Normal 0.0-6.0 [facility] ([place]) Comment on above: Performed By: #### B MP, GFR, TSH #### [address] [address] Lymphocyte, Absolute 1.7 10 3/mcL Normal 0.9-4.3 [facility] ([place]) Comment on above: Performed By: #### B MP, GFR, TSH #### [address] [address] Lymphocytes/100 WBC (Bld) 27.4 % Normal 20.0-40.0 [facility] ([place]) Comment on above: Performed By: #### B MP, GFR, TSH #### [address] [address] Monocyte, Absolute 0.8 10 3/mcL Normal 0.1-1.4 [facility] ([place]) Comment on above: Performed By: #### B MP, GFR, TSH #### [address] [address] Monocytes/100 WBC (Bld) 11.9 % Normal 2.0-13.0 [facility] ([place]) Comment on above: Performed By: #### B MP, GFR, TSH #### [address] [address] Neutrophils/100 WBC (Bld) 55.9 % Normal 50.0-75.0 [facility] ([place]) Comment on above: Performed By: #### B MP, GFR, TSH #### [address] [address] .GFRon 09-03-2023 GFR >60 Normal [facility] ([place]) Comment on above: Result Comment: GFR Population mean for , Non- Americans Ages 20-29 = 116 mL/min/1.73 sq.m. Ages 30-39 = 107 mL/min/1.73 sq.m. Ages 40-49 = 99 mL/min/1.73 sq.m. Ages 50-59 = 93 mL/min/1.73 sq.m. Ages 60-69 = 85 mL/min/1.73 sq.m. Ages 70+ = 75 mL/min/1.73 sq.m. Chronic Kidney Disease: Less than 60 mL/min/1.73 square meters End Stage Renal Disease: Less than 15 mL/min/1.73 square meters Performed By: #### B MP, GFR, TSH #### [address] [address] GFR Non- >60 Normal [facility] ([place]) Comment on above: Result Comment: GFR Population mean for , Non- Americans Ages 20-29 = 116 mL/min/1.73 sq.m. Ages 30-39 = 107 mL/min/1.73 sq.m. Ages 40-49 = 99 mL/min/1.73 sq.m. Ages 50-59 = 93 mL/min/1.73 sq.m. Ages 60-69 = 85 mL/min/1.73 sq.m. Ages 70+ = 75 mL/min/1.73 sq.m. Chronic Kidney Disease: Less than 60 mL/min/1.73 square meters End Stage Renal Disease: Less than 15 mL/min/1.73 square meters Performed By: #### B MP, GFR, TSH #### [address] [address] .NEUABSon 09-03-2023 Neutrophil, Absolute 3.6 10 3/mcL Normal 2.3-8.1 [facility] ([place]) Comment on above: Performed By: #### B MP, GFR, TSH #### [address] [address] B12on 09-03-2023 Cobalamin (Vitamin B12) [Mass/Vol] 453 pg/mL Normal 211-911 [facility] ([place]) Comment on above: Performed By: #### B MP, GFR, TSH #### [address] [address] BMPon 09-03-2023 BUN/Creatinine Ratio 18.3 ratio Normal 10.0-22.0 [facility] ([place]) Comment on above: Performed By: #### B MP, GFR, TSH #### [address] [address] Calcium [Mass/Vol] 10.0 mg/dL Normal 8.7-10.4 [facility] ([place]) Comment on above: Performed By: #### B MP, GFR, TSH #### [address] [address] Chloride [Moles/Vol] 99 mmol/L Normal 98-110 [facility] ([place]) Comment on above: Performed By: #### B MP, GFR, TSH #### [address] [address] CO2 [Moles/Vol] 33 mmol/L High 22-32 [facility] [facility] ([place]) Comment on above: Performed By: #### B MP, GFR, TSH #### [address] [address] Creatinine [Mass/Vol] 0.82 mg/dL Normal 0.50-1.20 [facility] ([place]) Comment on above: Performed By: #### B MP, GFR, TSH #### [address] [address] Electrolyte Balance 2.0 mEq/L Low 4.0-15.0 [facility] ([place]) Comment on above: Performed By: #### B MP, GFR, TSH #### [address] [address] Glucose [Mass/Vol] 77 mg/dL Low 82-115 [facility] ([place]) Comment on above: Performed By: #### B MP, GFR, TSH #### [address] [address] Potassium [Moles/Vol] 3.6 mmol/L Normal 3.5-5.0 [facility] ([place]) Comment on above: Performed By: #### B MP, GFR, TSH #### [address] [address] Sodium [Moles/Vol] 134 mmol/L Low 136-145 [facility] ([place]) Comment on above: Performed By: #### B MP, GFR, TSH #### [address] [address] Urea nitrogen [Mass/Vol] 15.0 mg/dL Normal 8.0-22.0 [facility] ([place]) Comment on above: Performed By: #### B MP, GFR, TSH #### [address] [address] CBCon 09-03-2023 Erythrocyte distribution width (RBC) [Ratio] 13.0 % Normal 11.5-15.5 [facility] ([place]) Comment on above: Performed By: #### B MP, GFR, TSH #### [address] [address] Hematocrit (Bld) [Volume fraction] 40.2 % Normal 34.0-46.0 [facility] ([place]) Comment on above: Performed By: #### B MP, GFR, TSH #### [address] [address] Hgb 13.5 G/dL Normal 12.0-16.0 [facility] ([place]) Comment on above: Performed By: #### B MP, GFR, TSH #### [address] [address] MCH (RBC) [Entitic mass] 29.1 pg Normal 27.0-33.0 [facility] ([place]) Comment on above: Performed By: #### B MP, GFR, TSH #### [place] [address] MCHC 33.7 G/dL Normal 32.0-36.0 [facility] ([place]) Comment on above: Performed By: #### B MP, GFR, TSH #### [place] [id number] MCV (RBC) [Entitic vol] 86.5 fL Normal 80.0-99.0 [facility] ([place]) Comment on above: Performed By: #### B MP, GFR, TSH #### [place] [id number] Platelet 106 10 3/mcL Low 150-450 [facility] ([place]) Comment on above: Performed By: #### B MP, GFR, TSH #### [place] [address] Platelet mean volume (Bld) [Entitic vol] 9.4 fL Normal 6.6-10.5 [facility] ([place]) Comment on above: Performed By: #### B MP, GFR, TSH #### [place] [id number] RBC 4.64 10 6/mcL Normal 4.10-5.30 [facility] ([place]) Comment on above: Performed By: #### B MP, GFR, TSH #### [address] [address] WBC 6.4 10 3/mcL Normal 4.5-10.8 [facility] ([place]) Comment on above: Performed By: #### B MP, GFR, TSH #### [address] [address] Luis Alberto 09-03-2023 Ferritin [Mass/Vol] 99.6 ng/mL Normal 8.0-252.0 [facility] ([place]) Comment on above: Performed By: #### B MP, GFR, TSH #### [address] [address] FT4on 09-03-2023 Free T4 [Mass/Vol] 1.81 ng/dL High 0.89-1.76 [facility] ([place]) Comment on above: Result Comment: No te - New Reference Range in effect 19 Performed By: #### B MP, GFR, TSH #### [address] [address] LIPIDon 09-03-2023 Cholesterol [Mass/Vol] 155 mg/dL Normal 50-199 [facility] ([place]) Comment on above: Result Comment: Chol esterol Reference Interval: Less than 200 Desirable 200-239 Borderline high risk 240 and above High risk Performed By: #### B MP, GFR, TSH #### [address] [address] Cholesterol in HDL [Mass/Vol] 32 mg/dL Low 40-59 [facility] ([place]) Comment on above: Performed By: #### B MP, GFR, TSH #### [address] [address] Cholesterol in LDL [Mass/Vol] 91 mg/dL Normal 0-129 [facility] ([place]) Comment on above: Performed By: #### B MP, GFR, TSH #### [address] [address] Triglyceride [Mass/Vol] 159 mg/dL High 3-149 [facility] ([place]) Comment on above: Performed By: #### B MP, GFR, TSH #### [address] [address] MGon 09-03-2023 Magnesium [Mass/Vol] 1.2 mg/dL Low 1.6-2.4 [facility] ([place]) Comment on above: Performed By: #### B MP, GFR, TSH #### [address] [address] .GFRon 08-01-2023 GFR >60 Normal [facility] ([place]) Comment on above: Result Comment: GFR Population mean for , Non- Americans Ages 20-29 = 116 mL/min/1.73 sq.m. Ages 30-39 = 107 mL/min/1.73 sq.m. Ages 40-49 = 99 mL/min/1.73 sq.m. Ages 50-59 = 93 mL/min/1.73 sq.m. Ages 60-69 = 85 mL/min/1.73 sq.m. Ages 70+ = 75 mL/min/1.73 sq.m. Chronic Kidney Disease: Less than 60 mL/min/1.73 square meters End Stage Renal Disease: Less than 15 mL/min/1.73 square meters Performed By: #### B MP, GFR, TSH #### [address] [address] GFR Non- >60 Normal [facility] ([place]) Comment on above: Result Comment: GFR Population mean for , Non- Americans Ages 20-29 = 116 mL/min/1.73 sq.m. Ages 30-39 = 107 mL/min/1.73 sq.m. Ages 40-49 = 99 mL/min/1.73 sq.m. Ages 50-59 = 93 mL/min/1.73 sq.m. Ages 60-69 = 85 mL/min/1.73 sq.m. Ages 70+ = 75 mL/min/1.73 sq.m. Chronic Kidney Disease: Less than 60 mL/min/1.73 square meters End Stage Renal Disease: Less than 15 mL/min/1.73 square meters Performed By: #### B MP, GFR, TSH #### [address] [address] BMPon 08-01-2023 BUN/Creatinine Ratio 18.8 ratio Normal 10.0-22.0 [facility] ([place]) Comment on above: Performed By: #### B MP, GFR, TSH #### [address] [address] Calcium [Mass/Vol] 10.2 mg/dL Normal 8.7-10.4 [facility] ([place]) Comment on above: Performed By: #### B MP, GFR, TSH #### [address] [address] Chloride [Moles/Vol] 101 mmol/L Normal 98-110 [facility] ([place]) Comment on above: Performed By: #### B MP, GFR, TSH #### [address] [address] CO2 [Moles/Vol] 33 mmol/L High 22-32 [facility] ([place]) Comment on above: Performed By: #### B MP, GFR, TSH #### [address] [address] Creatinine [Mass/Vol] 0.85 mg/dL Normal 0.50-1.20 [facility] ([place]) Comment on above: Performed By: #### B MP, GFR, TSH #### [address] [address] Electrolyte Balance 4.0 mEq/L Normal 4.0-15.0 [facility] ([place]) Comment on above: Performed By: #### B MP, GFR, TSH #### [address] [address] Glucose [Mass/Vol] 121 mg/dL High 82-115 [facility] ([place]) Comment on above: Performed By: #### B MP, GFR, TSH #### [address] [address] Potassium [Moles/Vol] 4.0 mmol/L Normal 3.5-5.0 [facility] ([place]) Comment on above: Performed By: #### B MP, GFR, TSH #### [address] [place], [place] [address] Sodium [Moles/Vol] 138 mmol/L Normal 136-145 [facility] ([place]) Comment on above: Performed By: #### B MP, GFR, TSH #### [address] [address] Urea nitrogen [Mass/Vol] 16.0 mg/dL Normal 8.0-22.0 [facility] ([place]) Comment on above: Performed By: #### B MP, GFR, TSH #### [address] [address] TSHon 08-01-2023 TSH 0.028 mIU/mL Low 0.550-4.780 [facility] ([place]) Comment on above: Result Comment: No te - New Reference Range in effect 19 Performed By: #### B MP, GFR, TSH #### [place] [id number] 25(OH)D3 [facility]-ncon 2023 25-hydroxyvitamin D3 [Mass/Vol] 51.4 ng/mL Normal 30.0-100.0 [facility] Comment on above: Order Comment: Speci men Type: BLOOD SPECIMENOrdering Facility: [facility] Address: [address] [place] [address] Result Comment: Defi ciency\X09\Less than 20 ng/mLInsufficiency\X09\20 - Less than 30 ng/mLSufficiency\X09\30 - 100 ng/mL Performed By: #### 2 4323-8, 1988-05 ####[facility] LABORATORYCLIA [id number] [address] OF [facility] CBC panel Auto (Bld)on 06-24 Erythrocyte distribution width (RBC) [Ratio] 14.0 % Normal 11.5-15.0 [facility] Comment on above: Order Comment: Speci men Type: BLOOD SPECIMENOrdering Facility: [facility] Address: [address] [place] [address] Performed By: #### 5 8410-2 ####[facility] LABORATORYCLIA [id number] [address] [place] Hematocrit (Bld) [Volume fraction] 45.4 % Normal 36.0-46.0 [facility] Comment on above: Order Comment: Speci men Type: BLOOD SPECIMENOrdering Facility: [facility] Address: [address] [place] [address] Performed By: #### 5 8410-2 ####[facility] LABORATORYCLIA [id number] [place] [address] [place] Hemoglobin (Bld) [Mass/Vol] 15.2 g/dL Normal 11.5-15.5 [facility] Comment on above: Order Comment: Speci men Type: BLOOD SPECIMENOrdering Facility: [facility] Address: [address] [place] [address] Performed By: #### 5 8410-2 ####[facility] LABORATORYCLIA [id number] [address] [place] MCH (RBC) [Entitic mass] 29.9 pg Normal 26.0-34.0 [facility] Comment on above: Order Comment: Speci men Type: BLOOD SPECIMENOrdering Facility: [facility] Address: [address] [place] [address] Performed By: #### 5 8410-2 ####[facility] LABORATORYCLIA [id number] [address] [place] MCHC (RBC) [Mass/Vol] 33.5 g/dL Normal 30.5-36.0 [facility] Comment on above: Order Comment: Speci men Type: BLOOD SPECIMENOrdering Facility: [facility] Address: [address] [place] [address] Performed By: #### 5 8410-2 ####[facility] LABORATORYCLIA [id number] [address] [place] MCV (RBC) [Entitic vol] 89.4 fL Normal 80.0-100.0 [facility] Comment on above: Order Comment: Speci men Type: BLOOD SPECIMENOrdering Facility: [facility] Address: [address] [place] [address] Performed By: #### 5 8410-2 ####[facility] LABORATORYCLIA [id number] [place] [id number] [place] Nucleated RBC (Bld) [#/Vol] 10*3/uL Normal <0.01 [facility] Comment on above: Order Comment: Speci men Type: BLOOD SPECIMENOrdering Facility: [facility] Address: [address] [place] [address] Performed By: #### 5 8410-2 ####[facility] LABORATORYCLIA [id number] [place] [address] [place] Platelet mean volume (Bld) [Entitic vol] 10.5 fL Normal 9.0-12.7 [facility] Comment on above: Order Comment: Speci men Type: BLOOD SPECIMENOrdering Facility: [facility] Address: [address] [place] [address] Performed By: #### 5 8410-2 ####[facility] LABORATORYCLIA [id number] [place] [address] [place] Platelets (Bld) [#/Vol] 106 10*3/uL Low 150-400 [facility] Comment on above: Order Comment: Speci men Type: BLOOD SPECIMENOrdering Facility: [facility] Address: [address] [place] [address] Performed By: #### 5 8410-2 ####[facility]ORATORYCLIA [id number] [place] [address] [place] RBC (Bld) [#/Vol] 5.08 10*6/uL Normal 3.90-5.20 [facility] Comment on above: Order Comment: Speci men Type: BLOOD SPECIMENOrdering Facility: [facility] Address: [address] [place] [address] Performed By: #### 5 8410-2 ####[facility] LABORATORYCLIA [id number] [place] [address] [place] WBC (Bld) [#/Vol] 6.32 10*3/uL Normal 3.70-11.00 [facility] Comment on above: Order Comment: Speci men Type: BLOOD SPECIMENOrdering Facility: [facility] Address: [address] [place] [address] Performed By: #### 5 8410-2 ####[facility] LABORATORYCLIA [id number] [place] [id number] [facility] [place] Comprehensive metabolic 2000 panelon 06-25-2023 Albumin [Mass/Vol] 3.9 g/dL Normal 3.2-5.0 [facility] Comment on above: Order Comment: Speci men Type: BLOOD SPECIMENOrdering Facility: [facility] Address: [address] [place] [address] Performed By: #### 2 4323-8, 1988-05 ####[facility] LABORATORYCLIA [id number] [address] [place] ALP [Catalytic activity/Vol] 129 U/L High 45-117 [facility] Comment on above: Order Comment: Speci men Type: BLOOD SPECIMENOrdering Facility: [facility] Address: [address] [place] [address] Performed By: #### 2 [address], 1988-05 ####[facility] LABORATORYCLIA [id number] [address] [place] ALT [Catalytic activity/Vol] 87 U/L High 13-61 [facility] Comment on above: Order Comment: Speci men Type: BLOOD SPECIMENOrdering Facility: [facility] Address: [address] [place] [address] Result Comment: Resu lts may be falsely depressed after the administration of Sulfasalazine and/or Sulfapyridine. Performed By: #### 2 4323-8, 1988-05 ####[facility] LABORATORYCLIA [id number] [address] [place] Anion gap [Moles/Vol] 6 mmol/L Normal 5-16 [facility] Comment on above: Order Comment: Speci men Type: BLOOD SPECIMENOrdering Facility: [facility] Address: [address] [place] [address] Performed By: #### 2 43205-15, 1988-05 ####[facility] LABORATORYCLIA [id number] [place] [address] [place] AST [Catalytic activity/Vol] 56 U/L High 8-34 [facility] Comment on above: Order Comment: Speci men Type: BLOOD SPECIMENOrdering Facility: [facility] Address: [address] [place] [address] Result Comment: Resu lts may be falsely depressed after the administration of Sulfasalazine and/or Sulfapyridine. Performed By: #### 2 43205-15, 1988-05 ####[facility] LABORATORYCLIA [id number] [place] [address] [place] Bilirubin [Mass/Vol] 1.0 mg/dL Normal 0.2-1.0 [facility] Comment on above: Order Comment: Speci men Type: BLOOD SPECIMENOrdering Facility: [facility] Address: [address] [place] [address] Performed By: #### 2 4322-10, 1988-05 ####[facility] LABORATORYCLIA [id number] [place] [address] [place] Calcium [Mass/Vol] 10.9 mg/dL High 8.5-10.5 [facility] Comment on above: Order Comment: Speci men Type: BLOOD SPECIMENOrdering Facility: [facility] Address: [address] [place] [address] Performed By: #### 2 4322-10, 1988-05 ####[facility] LABORATORYCLIA [id number] [place] [address] [place] Chloride [Moles/Vol] 96 mmol/L Low 98-107 [facility] Comment on above: Order Comment: Speci men Type: BLOOD SPECIMENOrdering Facility: [facility] Address: [address] [place] [address] Performed By: #### 2 4328, 1988-05 ####[facility] LABORATORYCLIA [id number] [place] [address] [place] CO2 [Moles/Vol] 34 mmol/L High 21-32 [facility] Comment on above: Order Comment: Speci men Type: BLOOD SPECIMENOrdering Facility: [facility] Address: [address] [place] [address] Performed By: #### 2 [address], 1988-05 ####[facility] LABORATORYCLIA [id number] [place] [id number] [place] Creatinine [Mass/Vol] 0.98 mg/dL High 0.51-0.95 [facility] Comment on above: Order Comment: Speci men Type: BLOOD SPECIMENOrdering Facility: [facility] Address: [address] [place] [address] Result Comment: Linn ents receiving either N-Acetylcysteine (NAC) or Metamizole prior to venipuncture, may have falsely depressed results. Performed By: #### 2 43205-15, 1988-05 ####[facility] LABORATORYCLIA [id number] [address] Creatinine and Glomerular filtration rate.predicted panel (S/P/Bld) 57 mL/min/1.73m??? Low >=60 [facility] Comment on above: Order Comment: Speci men Type: BLOOD SPECIMENOrdering Facility: [facility] Address: [address] [place] [address] Result Comment: Esme mated Glomerular Filtration Rate (eGFR) is calculated using the 2020 CKD-EPI creatinine equation. This equation utilizes serum creatinine, sex, and age as parameters. The creatinine assay has traceable calibration to isotope dilution-mass spectrometry. Refer to KDIGO guidelines for clinical interpretation. In patients with unstable renal function, e.g. those with acute kidney injury, the eGFR may not accurately reflect actual GFR. Performed By: #### 2 43238, 1988-05 ####[facility] LABORATORYCLIA [id number] [place] [id number] [place] Glucose [Mass/Vol] 140 mg/dL High 70-100 [facility] Comment on above: Order Comment: Speci men Type: BLOOD SPECIMENOrdering Facility: [facility] Address: [address] [place] [address] Result Comment: The [place] [employer] (ADA) provides guidance for cutoff values for fasting glucose and random glucose. The ADA defines fasting as no caloric intake for at least 8 hours. Fasting plasma glucose results between 100 to 125 mg/dL indicate increased risk for diabetes (prediabetes).Fasting plasma glucose results greater than or equal to 126 mg/dL meet the criteria for diagnosis of diabetes. In the absence of unequivocal hyperglycemia, results should be confirmed by repeat testing. In a patient with classic symptoms of hyperglycemia or hyperglycemic crisis, random plasma glucose results greater than or equal to 200 mg/dL meet the criteria for diagnosis of diabetes.Reference: Standards of Medical Care in Diabetes 2016, [place] [employer]. Diabetes Care. 2016.39(Suppl 1).Results may be falsely elevated after the administration of Sulfapyridine.Results may be falsely depressed after the administration of Sulfasalazine. Performed By: #### 2 [address]38, 1988-05 ####[facility] LABORATORYCLIA [id number] [place] [address] [place] Potassium [Moles/Vol] 3.0 mmol/L Low 3.5-5.1 [facility] Comment on above: Order Comment: Speci men Type: BLOOD SPECIMENOrdering Facility: [facility] Address: [address] [place] [address] Performed By: #### 2 4323, 1988-05 ####[facility] LABORATORYCLIA [id number] [place] [address] [place] Protein [Mass/Vol] 7.3 g/dL Normal 6.0-8.5 [facility] Comment on above: Order Comment: Speci men Type: BLOOD SPECIMENOrdering Facility: [facility] Address: [address] [place] [address] Performed By: #### 2 43238, 1988-05 ####[facility] LABORATORYCLIA [id number] [place] [address] [place] Sodium [Moles/Vol] 136 mmol/L Normal 136-145 [facility] Comment on above: Order Comment: Speci men Type: BLOOD SPECIMENOrdering Facility: [facility] Address: [address] [place], [place] [address] Performed By: #### 2 4323-8, 1988-05 ####[facility] LABORATORYCLIA [id number] [place] [id number] [facility] Urea nitrogen [Mass/Vol] 15 mg/dL Normal 7- [facility] Comment on above: Order Comment: Speci men Type: BLOOD SPECIMENOrdering Facility: [facility] Address: [address] [place] [address] Performed By: #### 2 4323-8, 1988-05 ####[facility] LABORATORYCLIA [id number] [address] [place] .Auto Diffon 06-20-2023 Basophil, Absolute 0.0 10 3/mcL Normal 0.0-0.3 [facility] ([place]) Comment on above: Performed By: #### A DIFF, CBC, MDW, GFR, CMP, TROPHS, PBNP, ANEU #### [address] [address] Basophils/100 WBC (Bld) 0.3 % Normal 0.0-2.5 [facility] ([place]) Comment on above: Performed By: #### A DIFF, CBC, MDW, GFR, CMP, TROPHS, PBNP, ANEU #### [address] [address] Eosinophil, Absolute 0.1 10 3/mcL Normal 0.0-0.7 [facility] ([place]) Comment on above: Performed By: #### A DIFF, CBC, MDW, GFR, CMP, TROPHS, PBNP, ANEU #### [address] [address] Eosinophils/100 WBC (Bld) 1.4 % Normal 0.0-6.0 [facility] ([place]) Comment on above: Performed By: #### A DIFF, CBC, MDW, GFR, CMP, TROPHS, PBNP, ANEU #### [address] [address] Lymphocyte, Absolute 1.8 10 3/mcL Normal 0.9-4.3 [facility] ([place]) Comment on above: Performed By: #### A DIFF, CBC, MDW, GFR, CMP, TROPHS, PBNP, ANEU #### [address] [address] Lymphocytes/100 WBC (Bld) 24.4 % Normal 20.0-40.0 [facility] ([place]) Comment on above: Performed By: #### A DIFF, CBC, MDW, GFR, CMP, TROPHS, PBNP, ANEU #### [address] [address] Monocyte, Absolute 0.9 10 3/mcL Normal 0.1-1.4 [facility] ([place]) Comment on above: Performed By: #### A DIFF, CBC, MDW, GFR, CMP, TROPHS, PBNP, ANEU #### [address] [address] Monocytes/100 WBC (Bld) 11.9 % Normal 2.0-13.0 [facility] ([place]) Comment on above: Performed By: #### A DIFF, CBC, MDW, GFR, CMP, TROPHS, PBNP, ANEU #### [address] [address] Neutrophils/100 WBC (Bld) 62.0 % Normal 50.0-75.0 [facility] ([place]) Comment on above: Performed By: #### A DIFF, CBC, MDW, GFR, CMP, TROPHS, PBNP, ANEU #### [address] [address] .GFRon 06-20-2023 GFR >60 Normal [facility] ([place]) Comment on above: Result Comment: GFR Population mean for , Non- Americans Ages 20-29 = 116 mL/min/1.73 sq.m. Ages 30-39 = 107 mL/min/1.73 sq.m. Ages 40-49 = 99 mL/min/1.73 sq.m. Ages 50-59 = 93 mL/min/1.73 sq.m. Ages 60-69 = 85 mL/min/1.73 sq.m. Ages 70+ = 75 mL/min/1.73 sq.m. Chronic Kidney Disease: Less than 60 mL/min/1.73 square meters End Stage Renal Disease: Less than 15 mL/min/1.73 square meters Performed By: #### A DIFF, CBC, MDW, GFR, CMP, TROPHS, PBNP, ANEU #### [address] [address] GFR Non- 57 ml/min/1.73sqm Normal [facility] ([place]) Comment on above: Result Comment: GFR Population mean for , Non- Americans Ages 20-29 = 116 mL/min/1.73 sq.m. Ages 30-39 = 107 mL/min/1.73 sq.m. Ages 40-49 = 99 mL/min/1.73 sq.m. Ages 50-59 = 93 mL/min/1.73 sq.m. Ages 60-69 = 85 mL/min/1.73 sq.m. Ages 70+ = 75 mL/min/1.73 sq.m. Chronic Kidney Disease: Less than 60 mL/min/1.73 square meters End Stage Renal Disease: Less than 15 mL/min/1.73 square meters Performed By: #### A DIFF, CBC, MDW, GFR, CMP, TROPHS, PBNP, ANEU #### [address] [address] .NEUABSon 06-20-2023 Neutrophil, Absolute 4.5 10 3/mcL Normal 2.3-8.1 [facility] ([place]) Comment on above: Performed By: #### A DIFF, CBC, MDW, GFR, CMP, TROPHS, PBNP, ANEU #### [address] [address] BMPon 06-20-2023 BUN/Creatinine Ratio 24.5 ratio High 10.0-22.0 [facility] ([place]) Comment on above: Performed By: #### A DIFF, CBC, MDW, GFR, CMP, TROPHS, PBNP, ANEU #### [address] [address] Calcium [Mass/Vol] 9.7 mg/dL Normal 8.7-10.4 [facility] [place] ([place]) Comment on above: Performed By: #### A DIFF, CBC, MDW, GFR, CMP, TROPHS, PBNP, ANEU #### [address] [address] Chloride [Moles/Vol] 99 mmol/L Normal 98-110 [facility] ([place]) Comment on above: Performed By: #### A DIFF, CBC, MDW, GFR, CMP, TROPHS, PBNP, ANEU #### [address] [address] CO2 [Moles/Vol] 33 mmol/L High 22-32 [facility] ([place]) Comment on above: Performed By: #### A DIFF, CBC, MDW, GFR, CMP, TROPHS, PBNP, ANEU #### [address] [address] Creatinine [Mass/Vol] 0.94 mg/dL Normal 0.50-1.20 [facility] ([place]) Comment on above: Performed By: #### A DIFF, CBC, MDW, GFR, CMP, TROPHS, PBNP, ANEU #### [address] [address] Electrolyte Balance 4.0 mEq/L Normal 4.0-15.0 [facility] ([place]) Comment on above: Performed By: #### A DIFF, CBC, MDW, GFR, CMP, TROPHS, PBNP, ANEU #### [address] [address] Glucose [Mass/Vol] 125 mg/dL High 82-115 [facility] [place] ([place]) Comment on above: Performed By: #### A DIFF, CBC, MDW, GFR, CMP, TROPHS, PBNP, ANEU #### [address] [address] Potassium [Moles/Vol] 3.4 mmol/L Low 3.5-5.0 [facility] ([place]) Comment on above: Performed By: #### A DIFF, CBC, MDW, GFR, CMP, TROPHS, PBNP, ANEU #### [address] [address] Sodium [Moles/Vol] 136 mmol/L Normal 136-145 [facility] [place] ([place]) Comment on above: Performed By: #### A DIFF, CBC, MDW, GFR, CMP, TROPHS, PBNP, ANEU #### [address] [address] Urea nitrogen [Mass/Vol] 23.0 mg/dL High 8.0-22.0 [facility] ([place]) Comment on above: Performed By: #### A DIFF, CBC, MDW, GFR, CMP, TROPHS, PBNP, ANEU #### [address] [address] CBCon 06-20-2023 Erythrocyte distribution width (RBC) [Ratio] 14.2 % Normal 11.5-15.5 [facility] ([place]) Comment on above: Performed By: #### A DIFF, CBC, MDW, GFR, CMP, TROPHS, PBNP, ANEU #### [place] [id number] Hematocrit (Bld) [Volume fraction] 42.1 % Normal 34.0-46.0 [facility] ([place]) Comment on above: Performed By: #### A DIFF, CBC, MDW, GFR, CMP, TROPHS, PBNP, ANEU #### [address] [address] Hgb 14.2 G/dL Normal 12.0-16.0 [facility] ([place]) Comment on above: Performed By: #### A DIFF, CBC, MDW, GFR, CMP, TROPHS, PBNP, ANEU #### [address] [address] MCH (RBC) [Entitic mass] 30.5 pg Normal 27.0-33.0 [facility] ([place]) Comment on above: Performed By: #### A DIFF, CBC, MDW, GFR, CMP, TROPHS, PBNP, ANEU #### [place] [id number] MCHC 33.8 G/dL Normal 32.0-36.0 [facility] ([place]) Comment on above: Performed By: #### A DIFF, CBC, MDW, GFR, CMP, TROPHS, PBNP, ANEU #### [place] [address] MCV (RBC) [Entitic vol] 90.3 fL Normal 80.0-99.0 [facility] ([place]) Comment on above: Performed By: #### A DIFF, CBC, MDW, GFR, CMP, TROPHS, PBNP, ANEU #### [place] [address] Platelet 99 10 3/mcL Low 150-450 [facility] ([place]) Comment on above: Performed By: #### A DIFF, CBC, MDW, GFR, CMP, TROPHS, PBNP, ANEU #### [place] [address] Platelet mean volume (Bld) [Entitic vol] 7.9 fL Normal 6.6-10.5 [facility] ([place]) Comment on above: Performed By: #### A DIFF, CBC, MDW, GFR, CMP, TROPHS, PBNP, ANEU #### [place] [address] RBC 4.67 10 6/mcL Normal 4.10-5.30 [facility] ([place]) Comment on above: Performed By: #### A DIFF, CBC, MDW, GFR, CMP, TROPHS, PBNP, ANEU #### [place] [address] WBC 7.3 10 3/mcL Normal 4.5-10.8 [facility] ([place]) Comment on above: Performed By: #### A DIFF, CBC, MDW, GFR, CMP, TROPHS, PBNP, ANEU #### [place] [address] LABORATORYOrdered By: SYSTEM SYSTEM on 06-20-2023 Basophils (Bld) [#/Vol] 0.0 103/mcL Normal 0.0 - 0.3 10^3/mcL AH Workflow SS Basophils/100 WBC (Bld) 0.3 % Normal 0.0 - 2.5 % AH Workflow SS Calcium [Mass/Vol] 9.7 mg/dL Normal 8.7 - 10. 4 mg/dL ADM SS Chloride [Moles/Vol] 99 mmol/L Normal 98 - 11 0 mEq/L ADM SS CO2 [Moles/Vol] 33 mmol/L High 22 - 32 mEq/L ADM SS Creatinine [Mass/Vol] 0.94 mg/dL Normal 0.50 - 1.20 mg/dL ADM SS Electrolyte Balance 4.0 mEq/L Normal 4.0 - 15 .0 mEq/L ADM SS Eosinophils (Bld) [#/Vol] 0.1 103/mcL Normal 0.0 - 0.7 10^3/mcL Workflow SS Eosinophils/100 WBC (Bld) 1.4 % Normal 0.0 - 6.0 % Workflow SS Erythrocyte distribution width (RBC) [Ratio] 14.2 % Normal 11.5 - 15.5 % Workflow SS GFR/1.73 sq M.predicted among blacks MDRD (S/P/Bld) [Vol rate/Area] ml/min/1.73sqm Invalid Interpretation Code [employer] S Comment on above: Interpretive Data: GFR Population mean for , Non- Americans Ages 20-29 = 116 mL/min/1.73 sq.m. Ages 30-39 = 107 mL/min/1.73 sq.m. Ages 40-49 = 99 mL/min/1.73 sq.m. Ages 50-59 = 93 mL/min/1.73 sq.m. Ages 60-69 = 85 mL/min/1.73 sq.m. Ages 70+ = 75 mL/min/1.73 sq.m. Chronic Kidney Disease: Less than 60 mL/min/1.73 square meters End Stage Renal Disease: Less than 15 mL/min/1.73 square meters GFR/1.73 sq M.predicted among non-blacks MDRD (S/P/Bld) [Vol rate/Area] 57 ml/min/1.73sqm Invalid Interpretation Code [employer] S Comment on above: Interpretive Data: GFR Population mean for , Non- Americans Ages 20-29 = 116 mL/min/1.73 sq.m. Ages 30-39 = 107 mL/min/1.73 sq.m. Ages 40-49 = 99 mL/min/1.73 sq.m. Ages 50-59 = 93 mL/min/1.73 sq.m. Ages 60-69 = 85 mL/min/1.73 sq.m. Ages 70+ = 75 mL/min/1.73 sq.m. Chronic Kidney Disease: Less than 60 mL/min/1.73 square meters End Stage Renal Disease: Less than 15 mL/min/1.73 square meters Glucose [Mass/Vol] 125 mg/dL High 82 - 115 mg/dL AH ADM SS Hematocrit (Bld) [Volume fraction] 42.1 % Normal 34.0 - 46.0 % AH Workflow SS Hemoglobin (Bld) [Mass/Vol] 14.2 G/dL Normal 12.0 - 16.0 G/dL AH Workflow SS Lymphocytes (Bld) [#/Vol] 1.8 103/mcL Normal 0.9 - 4.3 10^3/mcL AH Workflow SS Lymphocytes/100 WBC (Bld) 24.4 % Normal 20.0 - 40.0 % AH Workflow SS MCH (RBC) [Entitic mass] 30.5 pg Normal 27. 0 - 33.0 pg AH Workflow SS MCHC 33.8 G/dL Normal 32.0 - 36.0 G/dL AH Workflow SS MCV (RBC) [Entitic vol] 90.3 fL Normal 80.0 - 99.0 fL AH Workflow SS Monocytes (Bld) [#/Vol] 0.9 103/mcL Normal 0.1 - 1.4 10^3/mcL AH Workflow SS Monocytes/100 WBC (Bld) 11.9 % Normal 2.0 - 13.0 % AH Workflow SS Neutrophils (Bld) [#/Vol] 4.5 103/mcL Normal 2.3 - 8.1 10^3/mcL AH Workflow SS Neutrophils/100 WBC (Bld) 62.0 % Normal 50.0 - 75.0 % AH Workflow SS Platelet mean volume (Bld) [Entitic vol] 7.9 fL Normal 6.6 - 10.5 fL AH Workflow SS Platelets (Bld) [#/Vol] 99 103/mcL Low 150 - 450 10^3/mcL AH Workflow SS Potassium [Moles/Vol] 3.4 mmol/L Low 3.5 - 5.0 mEq/L AH ADM SS RBC (Bld) [#/Vol] 4.67 106/mcL Normal 4.10 - 5.3 0 10^6/mcL Workflow SS Sodium [Moles/Vol] 136 mmol/L Normal 136 - 145 mEq/L AH ADM SS Urea nitrogen [Mass/Vol] 23.0 mg/dL High 8.0 - 22.0 mg/dL AH ADM SS Urea nitrogen/Creatinine [Mass ratio] 24.5 ratio High 10.0 - 22.0 ratio AH ADM SS WBC (Bld) [#/Vol] 7.3 103/mcL Normal 4.5 - 10.8 10^3/mcL Workflow SS .Auto Diffon 06-19-2023 Basophil, Absolute 0.0 10 3/mcL Normal 0.0-0.3 [facility] ([place]) Comment on above: Performed By: #### A DIFF, CBC, MDW, GFR, CMP, TROPHS, PBNP, ANEU #### [address] [address] Basophils/100 WBC (Bld) 0.1 % Normal 0.0-2.5 [facility] ([place]) Comment on above: Performed By: #### A DIFF, CBC, MDW, GFR, CMP, TROPHS, PBNP, ANEU #### [address] [address] Eosinophil, Absolute 0.0 10 3/mcL Normal 0.0-0.7 [facility] ([place]) Comment on above: Performed By: #### A DIFF, CBC, MDW, GFR, CMP, TROPHS, PBNP, ANEU #### [address] [address] Eosinophils/100 WBC (Bld) 0.1 % Normal 0.0-6.0 [facility] ([place]) Comment on above: Performed By: #### A DIFF, CBC, MDW, GFR, CMP, TROPHS, PBNP, ANEU #### [address] [address] Lymphocyte, Absolute 1.1 10 3/mcL Normal 0.9-4.3 [facility] ([place]) Comment on above: Performed By: #### A DIFF, CBC, MDW, GFR, CMP, TROPHS, PBNP, ANEU #### [address] [address] Lymphocytes/100 WBC (Bld) 14.2 % Low 20.0-40.0 [facility] ([place]) Comment on above: Performed By: #### A DIFF, CBC, MDW, GFR, CMP, TROPHS, PBNP, ANEU #### [address] [address] Monocyte, Absolute 0.8 10 3/mcL Normal 0.1-1.4 [facility] ([place]) Comment on above: Performed By: #### A DIFF, CBC, MDW, GFR, CMP, TROPHS, PBNP, ANEU #### [address] [address] Monocytes/100 WBC (Bld) 10.3 % Normal 2.0-13.0 [facility] ([place]) Comment on above: Performed By: #### A DIFF, CBC, MDW, GFR, CMP, TROPHS, PBNP, ANEU #### [address] [address] Neutrophils/100 WBC (Bld) 75.3 % High 50.0-75.0 [facility] ([place]) Comment on above: Performed By: #### A DIFF, CBC, MDW, GFR, CMP, TROPHS, PBNP, ANEU #### [address] [address] .GFRon 06-19-2023 GFR Non- 53 ml/min/1.73sqm Normal [facility] ([place]) Comment on above: Result Comment: GFR Population mean for , Non- Americans Ages 20-29 = 116 mL/min/1.73 sq.m. Ages 30-39 = 107 mL/min/1.73 sq.m. Ages 40-49 = 99 mL/min/1.73 sq.m. Ages 50-59 = 93 mL/min/1.73 sq.m. Ages 60-69 = 85 mL/min/1.73 sq.m. Ages 70+ = 75 mL/min/1.73 sq.m. Chronic Kidney Disease: Less than 60 mL/min/1.73 square meters End Stage Renal Disease: Less than 15 mL/min/1.73 square meters Performed By: #### A DIFF, CBC, MDW, GFR, CMP, TROPHS, PBNP, ANEU #### [address] [address] GFR >60 Normal [facility] ([place]) Comment on above: Result Comment: GFR Population mean for , Non- Americans Ages 20-29 = 116 mL/min/1.73 sq.m. Ages 30-39 = 107 mL/min/1.73 sq.m. Ages 40-49 = 99 mL/min/1.73 sq.m. Ages 50-59 = 93 mL/min/1.73 sq.m. Ages 60-69 = 85 mL/min/1.73 sq.m. Ages 70+ = 75 mL/min/1.73 sq.m. Chronic Kidney Disease: Less than 60 mL/min/1.73 square meters End Stage Renal Disease: Less than 15 mL/min/1.73 square meters Performed By: #### A DIFF, CBC, MDW, GFR, CMP, TROPHS, PBNP, ANEU #### [address] [address] .NEUABSon 06-19-2023 Neutrophil, Absolute 5.8 10 3/mcL Normal 2.3-8.1 [facility] ([place]) Comment on above: Performed By: #### A DIFF, CBC, MDW, GFR, CMP, TROPHS, PBNP, ANEU #### [address] [address] CBCon 06-19-2023 Erythrocyte distribution width (RBC) [Ratio] 14.4 % Normal 11.5-15.5 [facility] ([place]) Comment on above: Order Comment: recol lect - clotted - 06/19/2023 06:37:34 EDT Performed By: #### A DIFF, CBC, MDW, GFR, CMP, TROPHS, PBNP, ANEU #### [place] [address] Hematocrit (Bld) [Volume fraction] 41.1 % Normal 34.0-46.0 [facility] ([place]) Comment on above: Order Comment: recol lect - clotted - 06/19/2023 06:37:34 EDT Performed By: #### A DIFF, CBC, MDW, GFR, CMP, TROPHS, PBNP, ANEU #### [place] [address] Hgb 14.0 G/dL Normal 12.0-16.0 [facility] ([place]) Comment on above: Order Comment: recol lect - clotted - 06/19/2023 06:37:34 EDT Performed By: #### A DIFF, CBC, MDW, GFR, CMP, TROPHS, PBNP, ANEU #### [place] [address] MCH (RBC) [Entitic mass] 30.2 pg Normal 27.0-33.0 [facility] ([place]) Comment on above: Order Comment: recol lect - clotted - 06/19/2023 06:37:34 EDT Performed By: #### A DIFF, CBC, MDW, GFR, CMP, TROPHS, PBNP, ANEU #### [place] [address] MCHC 34.0 G/dL Normal 32.0-36.0 [facility] ([place]) Comment on above: Order Comment: recol lect - clotted - 06/19/2023 06:37:34 EDT Performed By: #### A DIFF, CBC, MDW, GFR, CMP, TROPHS, PBNP, ANEU #### [place] [address] MCV (RBC) [Entitic vol] 88.8 fL Normal 80.0-99.0 [facility] ([place]) Comment on above: Order Comment: recol lect - clotted - 06/19/2023 06:37:34 EDT Performed By: #### A DIFF, CBC, MDW, GFR, CMP, TROPHS, PBNP, ANEU #### [place] [address] Platelet 107 10 3/mcL Low 150-450 [facility] ([place]) Comment on above: Order Comment: recol lect - clotted - 06/19/2023 06:37:34 EDT Performed By: #### A DIFF, CBC, MDW, GFR, CMP, TROPHS, PBNP, ANEU #### [address] [address] Platelet mean volume (Bld) [Entitic vol] 7.7 fL Normal 6.6-10.5 [facility] ([place]) Comment on above: Order Comment: recol lect - clotted - 06/19/2023 06:37:34 EDT Performed By: #### A DIFF, CBC, MDW, GFR, CMP, TROPHS, PBNP, ANEU #### [place] [address] RBC 4.62 10 6/mcL Normal 4.10-5.30 [facility] ([place]) Comment on above: Order Comment: recol lect - clotted - 06/19/2023 06:37:34 EDT Performed By: #### A DIFF, CBC, MDW, GFR, CMP, TROPHS, PBNP, ANEU #### [place] [id number] WBC 7.7 10 3/mcL Normal 4.5-10.8 [facility] ([place]) Comment on above: Order Comment: recol lect - clotted - 06/19/2023 06:37:34 EDT Performed By: #### A DIFF, CBC, MDW, GFR, CMP, TROPHS, PBNP, ANEU #### [address] [address] CMPon 06-19-2023 Albumin Level 3.6 G/dL Normal 3.2-4.8 [facility] ([place]) Comment on above: Performed By: #### A DIFF, CBC, MDW, GFR, CMP, TROPHS, PBNP, ANEU #### [address] [address] Albumin/Globulin [Mass ratio] 1.1 {ratio} Normal 0.9-1.6 [facility] ([place]) Comment on above: Performed By: #### A DIFF, CBC, MDW, GFR, CMP, TROPHS, PBNP, ANEU #### [place] [id number] ALP [Catalytic activity/Vol] 95 U/L Normal 38-126 [facility] ([place]) Comment on above: Performed By: #### A DIFF, CBC, MDW, GFR, CMP, TROPHS, PBNP, ANEU #### [address] [address] ALT [Catalytic activity/Vol] 15 U/L Normal 10-49 [facility] ([place]) Comment on above: Performed By: #### A DIFF, CBC, MDW, GFR, CMP, TROPHS, PBNP, ANEU #### [address] [address] AST [Catalytic activity/Vol] 20 U/L Normal 8-34 [facility] ([place]) Comment on above: Performed By: #### A DIFF, CBC, MDW, GFR, CMP, TROPHS, PBNP, ANEU #### [address] [address] Bili Total 0.70 mg/dL Normal 0.20-1.20 [facility] ([place]) Comment on above: Result Comment: Use of this assay is not recommended for patients undergoing treatment with eltrombopag due to the potential for falsely elevated results. Performed By: #### A DIFF, CBC, MDW, GFR, CMP, TROPHS, PBNP, ANEU #### [address] [address] BUN/Creatinine Ratio 20.0 ratio Normal 10.0-22.0 [facility] ([place]) Comment on above: Performed By: #### A DIFF, CBC, MDW, GFR, CMP, TROPHS, PBNP, ANEU #### [address] [address] Calcium [Mass/Vol] 10.6 mg/dL High 8.7-10.4 [facility] [place] ([place]) Comment on above: Performed By: #### A DIFF, CBC, MDW, GFR, CMP, TROPHS, PBNP, ANEU #### [address] [address] Chloride [Moles/Vol] 95 mmol/L Low 98-110 [facility] ([place]) Comment on above: Performed By: #### A DIFF, CBC, MDW, GFR, CMP, TROPHS, PBNP, ANEU #### [address] [address] CO2 [Moles/Vol] 34 mmol/L High 22-32 [facility] ([place]) Comment on above: Performed By: #### A DIFF, CBC, MDW, GFR, CMP, TROPHS, PBNP, ANEU #### [address] [address] Creatinine [Mass/Vol] 1.00 mg/dL Normal 0.50-1.20 [facility] ([place]) Comment on above: Performed By: #### A DIFF, CBC, MDW, GFR, CMP, TROPHS, PBNP, ANEU #### [address] [address] Electrolyte Balance 10.0 mEq/L Normal 4.0-15.0 [facility] ([place]) Comment on above: Performed By: #### A DIFF, CBC, MDW, GFR, CMP, TROPHS, PBNP, ANEU #### [address] [address] Globulin 3.3 G/dL Normal 1.5-3.8 [facility] ([place]) Comment on above: Performed By: #### A DIFF, CBC, MDW, GFR, CMP, TROPHS, PBNP, ANEU #### [address] [address] Glucose [Mass/Vol] 120 mg/dL High 82-115 [facility] [place] ([place]) Comment on above: Performed By: #### A DIFF, CBC, MDW, GFR, CMP, TROPHS, PBNP, ANEU #### [address] [address] Potassium [Moles/Vol] 3.6 mmol/L Normal 3.5-5.0 [facility] ([place]) Comment on above: Performed By: #### A DIFF, CBC, MDW, GFR, CMP, TROPHS, PBNP, ANEU #### [address] [address] Sodium [Moles/Vol] 139 mmol/L Normal 136-145 [facility] [place] ([place]) Comment on above: Performed By: #### A DIFF, CBC, MDW, GFR, CMP, TROPHS, PBNP, ANEU #### [address] [address] Total Protein 6.9 G/dL Normal 5.7-8.2 [facility] ([place]) Comment on above: Result Comment: No te - New Reference Range in effect 19 Performed By: #### A DIFF, CBC, MDW, GFR, CMP, TROPHS, PBNP, ANEU #### [address] [address] Urea nitrogen [Mass/Vol] 20.0 mg/dL Normal 8.0-22.0 [facility] ([place]) Comment on above: Performed By: #### A DIFF, CBC, MDW, GFR, CMP, TROPHS, PBNP, ANEU #### [address] [address] LABORATORYOrdered By: SYSTEM SYSTEM on 06-19-2023 Basophils (Bld) [#/Vol] 0.0 103/mcL Normal 0.0 - 0.3 10^3/mcL AH Workflow SS Basophils/100 WBC (Bld) 0.1 % Normal 0.0 - 2.5 % AH Workflow SS Eosinophils (Bld) [#/Vol] 0.0 103/mcL Normal 0.0 - 0.7 10^3/mcL AH Workflow SS Eosinophils/100 WBC (Bld) 0.1 % Normal 0.0 - 6.0 % AH Workflow SS Erythrocyte distribution width (RBC) [Ratio] 14.4 % Normal 11.5 - 15.5 % AH Workflow SS Hematocrit (Bld) [Volume fraction] 41.1 % Normal 34.0 - 46.0 % AH Workflow SS Hemoglobin (Bld) [Mass/Vol] 14.0 G/dL Normal 12.0 - 16.0 G/dL AH Workflow SS Lymphocytes (Bld) [#/Vol] 1.1 103/mcL Normal 0.9 - 4.3 10^3/mcL AH Workflow SS Lymphocytes/100 WBC (Bld) 14.2 % Low 20.0 - 40.0 % AH Workflow SS MCH (RBC) [Entitic mass] 30.2 pg Normal 27. 0 - 33.0 pg AH Workflow SS MCHC 34.0 G/dL Normal 32.0 - 36.0 G/dL AH Workflow SS MCV (RBC) [Entitic vol] 88.8 fL Normal 80.0 - 99.0 fL AH Workflow SS Monocytes (Bld) [#/Vol] 0.8 103/mcL Normal 0.1 - 1.4 10^3/mcL AH Workflow SS Monocytes/100 WBC (Bld) 10.3 % Normal 2.0 - 13.0 % AH Workflow SS Neutrophils (Bld) [#/Vol] 5.8 103/mcL Normal 2.3 - 8.1 10^3/mcL AH Workflow SS Neutrophils/100 WBC (Bld) 75.3 % High 50.0 - 75.0 % AH Workflow SS Platelet mean volume (Bld) [Entitic vol] 7.7 fL Normal 6.6 - 10.5 fL AH Workflow SS Platelets (Bld) [#/Vol] 107 103/mcL Low 150 - 450 10^3/mcL AH Workflow SS RBC (Bld) [#/Vol] 4.62 106/mcL Normal 4.10 - 5.3 0 10^6/mcL AH Workflow SS WBC (Bld) [#/Vol] 7.7 103/mcL Normal 4.5 - 10.8 10^3/mcL AH Workflow SS Albumin BCP dye [Mass/Vol] 3.6 G/dL Normal 3.2 - 4.8 G/dL ADM SS Albumin/Globulin [Mass ratio] 1.1 {ratio} Normal 0.9 - 1.6 ratio ADM SS ALP [Catalytic activity/Vol] 95 U/L Normal 38 - 126 U/L ADM SS ALT No additional P-5'-P [Catalytic activity/Vol] 15 U/L Normal 10 - 49 U/L ADM SS AST [Catalytic activity/Vol] 20 U/L Normal 8 - 34 U/L AH ADM SS Bilirubin [Mass/Vol] 0.70 mg/dL Normal 0.20 - 1.20 mg/dL ADM SS Comment on above: Interpretive Data: U se of this assay is not recommended for patients undergoing treatment with eltrombopag due to the potential for falsely elevated results. Calcium [Mass/Vol] 10.6 mg/dL High 8.7 - 10. 4 mg/dL ADM SS Chloride [Moles/Vol] 95 mmol/L Low 98 - 11 0 mEq/L ADM SS CO2 [Moles/Vol] 34 mmol/L High 22 - 32 mEq/L ADM SS Creatinine [Mass/Vol] 1.00 mg/dL Normal 0.50 - 1.20 mg/dL ADM SS Electrolyte Balance 10.0 mEq/L Normal 4.0 - 15 .0 mEq/L ADM SS GFR/1.73 sq M.predicted among blacks MDRD (S/P/Bld) [Vol rate/Area] ml/min/1.73sqm Invalid Interpretation Code [employer] S Comment on above: Interpretive Data: GFR Population mean for , Non- Americans Ages 20-29 = 116 mL/min/1.73 sq.m. Ages 30-39 = 107 mL/min/1.73 sq.m. Ages 40-49 = 99 mL/min/1.73 sq.m. Ages 50-59 = 93 mL/min/1.73 sq.m. Ages 60-69 = 85 mL/min/1.73 sq.m. Ages 70+ = 75 mL/min/1.73 sq.m. Chronic Kidney Disease: Less than 60 mL/min/1.73 square meters End Stage Renal Disease: Less than 15 mL/min/1.73 square meters GFR/1.73 sq M.predicted among non-blacks MDRD (S/P/Bld) [Vol rate/Area] 53 ml/min/1.73sqm Invalid Interpretation Code [employer] S Comment on above: Interpretive Data: GFR Population mean for , Non- Americans Ages 20-29 = 116 mL/min/1.73 sq.m. Ages 30-39 = 107 mL/min/1.73 sq.m. Ages 40-49 = 99 mL/min/1.73 sq.m. Ages 50-59 = 93 mL/min/1.73 sq.m. Ages 60-69 = 85 mL/min/1.73 sq.m. Ages 70+ = 75 mL/min/1.73 sq.m. Chronic Kidney Disease: Less than 60 mL/min/1.73 square meters End Stage Renal Disease: Less than 15 mL/min/1.73 square meters Globulin 3.3 G/dL Normal 1.5 - 3.8 G/dL ADM SS Glucose [Mass/Vol] 120 mg/dL High 82 - 115 mg/dL ADM SS Magnesium [Mass/Vol] 1.8 mg/dL Normal 1.6 - 2 .4 mg/dL ADM SS Potassium [Moles/Vol] 3.6 mmol/L Normal 3.5 - 5.0 mEq/L ADM SS Protein [Mass/Vol] 6.9 G/dL Normal 5.7 - 8.2 G/dL ADM Comment on above: Interpretive Data: * *Note - New Reference Range in effect 19 Sodium [Moles/Vol] 139 mmol/L Normal 136 - 145 mEq/L ADM SS Troponin I.cardiac DL <= 0.01 ng/mL [Mass/Vol] 9 ng/L Normal 0 - 34 ng/L ADM Comment on above: Interpretive Data: High Sensitive Troponin I Reference Ranges: Female: 0-34 ng/L Male: 0-54 ng/L Testing performed on [employer] IM analyzer using direct chemiluminescent technology. Urea nitrogen [Mass/Vol] 20.0 mg/dL Normal 8.0 - 22.0 mg/dL ADM Urea nitrogen/Creatinine [Mass ratio] 20.0 ratio Normal 10.0 - 22.0 ratio [facility] MGon 06-19-2023 Magnesium [Mass/Vol] 1.8 mg/dL Normal 1.6-2.4 [facility] ([place]) Comment on above: Performed By: #### A DIFF, CBC, MDW, GFR, CMP, TROPHS, PBNP, ANEU #### [place] [address] TROPHSon 06-19-2023 High Sensitivity Troponin I 9 ng/L Normal 0-34 [facility] ([place]) Comment on above: Result Comment: High Sensitive Troponin I Reference Ranges: Female: 0-34 ng/L Male: 0-54 ng/L Testing performed on [employer] IM analyzer using direct chemiluminescent technology. Performed By: #### A DIFF, CBC, MDW, GFR, CMP, TROPHS, PBNP, ANEU #### [address] [address] .Auto Diffon 06-18-2023 Basophil, Absolute 0.0 10 3/mcL Normal 0.0-0.3 [facility] ([place]) Comment on above: Performed By: #### A DIFF, CBC, MDW, GFR, CMP, TROPHS, PBNP, ANEU #### [address] [address] Basophils/100 WBC (Bld) 0.5 % Normal 0.0-2.5 [facility] ([place]) Comment on above: Performed By: #### A DIFF, CBC, MDW, GFR, CMP, TROPHS, PBNP, ANEU #### [address] [address] Eosinophil, Absolute 0.2 10 3/mcL Normal 0.0-0.7 [facility] ([place]) Comment on above: Performed By: #### A DIFF, CBC, MDW, GFR, CMP, TROPHS, PBNP, ANEU #### [address] [address] Eosinophils/100 WBC (Bld) 4.1 % Normal 0.0-6.0 [facility] ([place]) Comment on above: Performed By: #### A DIFF, CBC, MDW, GFR, CMP, TROPHS, PBNP, ANEU #### [address] [address] Lymphocyte, Absolute 1.5 10 3/mcL Normal 0.9-4.3 [facility] ([place]) Comment on above: Performed By: #### A DIFF, CBC, MDW, GFR, CMP, TROPHS, PBNP, ANEU #### [address] [address] Lymphocytes/100 WBC (Bld) 24.1 % Normal 20.0-40.0 [facility] ([place]) Comment on above: Performed By: #### A DIFF, CBC, MDW, GFR, CMP, TROPHS, PBNP, ANEU #### [address] [address] Monocyte, Absolute 0.6 10 3/mcL Normal 0.1-1.4 [facility] ([place]) Comment on above: Performed By: #### A DIFF, CBC, MDW, GFR, CMP, TROPHS, PBNP, ANEU #### [address] [address] Monocytes/100 WBC (Bld) 10.0 % Normal 2.0-13.0 A [facility] ([place]) Comment on above: Performed By: #### A DIFF, CBC, MDW, GFR, CMP, TROPHS, PBNP, ANEU #### [address] [address] Neutrophils/100 WBC (Bld) 61.3 % Normal 50.0-75.0 [facility] ([place]) Comment on above: Performed By: #### A DIFF, CBC, MDW, GFR, CMP, TROPHS, PBNP, ANEU #### [address] [address] .GFRon 06-18-2023 GFR 54 ml/min/1.73sqm Normal [facility] ([place]) Comment on above: Result Comment: GFR Population mean for , Non- Americans Ages 20-29 = 116 mL/min/1.73 sq.m. Ages 30-39 = 107 mL/min/1.73 sq.m. Ages 40-49 = 99 mL/min/1.73 sq.m. Ages 50-59 = 93 mL/min/1.73 sq.m. Ages 60-69 = 85 mL/min/1.73 sq.m. Ages 70+ = 75 mL/min/1.73 sq.m. Chronic Kidney Disease: Less than 60 mL/min/1.73 square meters End Stage Renal Disease: Less than 15 mL/min/1.73 square meters Performed By: #### A DIFF, CBC, MDW, GFR, CMP, TROPHS, PBNP, ANEU #### [address] [address] GFR Non- 45 ml/min/1.73sqm Normal [facility] ([place]) Comment on above: Result Comment: GFR Population mean for , Non- Americans Ages 20-29 = 116 mL/min/1.73 sq.m. Ages 30-39 = 107 mL/min/1.73 sq.m. Ages 40-49 = 99 mL/min/1.73 sq.m. Ages 50-59 = 93 mL/min/1.73 sq.m. Ages 60-69 = 85 mL/min/1.73 sq.m. Ages 70+ = 75 mL/min/1.73 sq.m. Chronic Kidney Disease: Less than 60 mL/min/1.73 square meters End Stage Renal Disease: Less than 15 mL/min/1.73 square meters Performed By: #### A DIFF, CBC, MDW, GFR, CMP, TROPHS, PBNP, ANEU #### [address] [address] .MDWon 06-18-2023 Monocyte Distribution Width 18.33 Normal 0.00-20.00 [facility] ([place]) Comment on above: Result Comment: For ED adult patients suspected of sepsis, MDW<=20.0 does not rule out sepsis or risk of sepsis Performed By: #### A DIFF, CBC, MDW, GFR, CMP, TROPHS, PBNP, ANEU #### [place] [address] .NEUABSon 06-18-2023 Neutrophil, Absolute 3.7 10 3/mcL Normal 2.3-8.1 [facility] ([place]) Comment on above: Performed By: #### A DIFF, CBC, MDW, GFR, CMP, TROPHS, PBNP, ANEU #### [place] [address] BGon 06-18-2023 Base excess Calc (Bld) [Moles/Vol] 7.9 mmol/L Normal [facility] ([place]) Comment on above: Performed By: #### A DIFF, CBC, MDW, GFR, CMP, TROPHS, PBNP, ANEU #### [place] [address] CO2 [Moles/Vol] 35.3 mmol/L High 22.0-30.0 [facility] ([place]) Comment on above: Performed By: #### A DIFF, CBC, MDW, GFR, CMP, TROPHS, PBNP, ANEU #### [place] [address] HCO3 (Bld) [Moles/Vol] 33.7 mmol/L High 21.0-29.0 [facility] [place] Comment on above: Performed By: #### A DIFF, CBC, MDW, GFR, CMP, TROPHS, PBNP, ANEU #### [place] [id number] Oxygen (Bld) [Partial pressure] 63.6 mm[Hg] Low 74.0-108.0 [facility] ([place]) Comment on above: Performed By: #### A DIFF, CBC, MDW, GFR, CMP, TROPHS, PBNP, ANEU #### [place] [id number] Oxygen saturation in Blood 92.9 % Normal 92.0-96.0 [facility] ([place]) Comment on above: Performed By: #### A DIFF, CBC, MDW, GFR, CMP, TROPHS, PBNP, ANEU #### [place] [id number] pCO2 51.5 mmHg High 32.0-46.0 [facility] ([place]) Comment on above: Performed By: #### A DIFF, CBC, MDW, GFR, CMP, TROPHS, PBNP, ANEU #### [place] [id number] pH (Bld) 7.434 [pH] Normal 7.380-7.460 [facility] ([place]) Comment on above: Performed By: #### A DIFF, CBC, MDW, GFR, CMP, TROPHS, PBNP, ANEU #### [place] [id number] CBCon 06-18-2023 Erythrocyte distribution width (RBC) [Ratio] 14.3 % Normal 11.5-15.5 [facility] ([place]) Comment on above: Performed By: #### A DIFF, CBC, MDW, GFR, CMP, TROPHS, PBNP, ANEU #### [place] [address] Hematocrit (Bld) [Volume fraction] 44.3 % Normal 34.0-46.0 [facility] ([place]) Comment on above: Performed By: #### A DIFF, CBC, MDW, GFR, CMP, TROPHS, PBNP, ANEU #### [place] [address] Hgb 15.1 G/dL Normal 12.0-16.0 [facility] ([place]) Comment on above: Performed By: #### A DIFF, CBC, MDW, GFR, CMP, TROPHS, PBNP, ANEU #### [place] [id number] MCH (RBC) [Entitic mass] 31.1 pg Normal 27.0-33.0 [facility] ([place]) Comment on above: Performed By: #### A DIFF, CBC, MDW, GFR, CMP, TROPHS, PBNP, ANEU #### [place] [address] MCHC 34.1 G/dL Normal 32.0-36.0 [facility] ([place]) Comment on above: Performed By: #### A DIFF, CBC, MDW, GFR, CMP, TROPHS, PBNP, ANEU #### [place] [address] MCV (RBC) [Entitic vol] 91.1 fL Normal 80.0-99.0 [facility] ([place]) Comment on above: Performed By: #### A DIFF, CBC, MDW, GFR, CMP, TROPHS, PBNP, ANEU #### [place] [address] Platelet 139 10 3/mcL Low 150-450 [facility] ([place]) Comment on above: Performed By: #### A DIFF, CBC, MDW, GFR, CMP, TROPHS, PBNP, ANEU #### [place] [address] Platelet mean volume (Bld) [Entitic vol] 8.8 fL Normal 6.6-10.5 [facility] ([place]) Comment on above: Performed By: #### A DIFF, CBC, MDW, GFR, CMP, TROPHS, PBNP, ANEU #### [place] [address] RBC 4.87 10 6/mcL Normal 4.10-5.30 [facility] ([place]) Comment on above: Performed By: #### A DIFF, CBC, MDW, GFR, CMP, TROPHS, PBNP, ANEU #### [address] [address] WBC 6.0 10 3/mcL Normal 4.5-10.8 [facility] ([place]) Comment on above: Performed By: #### A DIFF, CBC, MDW, GFR, CMP, TROPHS, PBNP, ANEU #### [address] [address] CMPon 06-18-2023 Albumin Level 4.1 G/dL Normal 3.2-4.8 [facility] ([place]) Comment on above: Performed By: #### A DIFF, CBC, MDW, GFR, CMP, TROPHS, PBNP, ANEU #### [address] [address] Albumin/Globulin [Mass ratio] 1.2 {ratio} Normal 0.9-1.6 [facility] ([place]) Comment on above: Performed By: #### A DIFF, CBC, MDW, GFR, CMP, TROPHS, PBNP, ANEU #### [address] [address] ALP [Catalytic activity/Vol] 105 U/L Normal 38-126 [facility] ([place]) Comment on above: Performed By: #### A DIFF, CBC, MDW, GFR, CMP, TROPHS, PBNP, ANEU #### [address] [address] ALT [Catalytic activity/Vol] 14 U/L Normal 10-49 [facility] ([place]) Comment on above: Performed By: #### A DIFF, CBC, MDW, GFR, CMP, TROPHS, PBNP, ANEU #### [address] [address] AST [Catalytic activity/Vol] 20 U/L Normal 8-34 [facility] ([place]) Comment on above: Performed By: #### A DIFF, CBC, MDW, GFR, CMP, TROPHS, PBNP, ANEU #### [address] [address] Bili Total 0.60 mg/dL Normal 0.20-1.20 [facility] ([place]) Comment on above: Result Comment: Use of this assay is not recommended for patients undergoing treatment with eltrombopag due to the potential for falsely elevated results. Performed By: #### A DIFF, CBC, MDW, GFR, CMP, TROPHS, PBNP, ANEU #### [place] [id number] BUN/Creatinine Ratio 14.8 ratio Normal 10.0-22.0 [facility] ([place]) Comment on above: Performed By: #### A DIFF, CBC, MDW, GFR, CMP, TROPHS, PBNP, ANEU #### [place] [id number] Calcium [Mass/Vol] 11.1 mg/dL High 8.7-10.4 [facility] ([place]) Comment on above: Performed By: #### A DIFF, CBC, MDW, GFR, CMP, TROPHS, PBNP, ANEU #### [place] [id number] Chloride [Moles/Vol] 96 mmol/L Low 98-110 [facility] ([place]) Comment on above: Performed By: #### A DIFF, CBC, MDW, GFR, CMP, TROPHS, PBNP, ANEU #### [address] [address] CO2 [Moles/Vol] 37 mmol/L High 22-32 [facility] ([place]) Comment on above: Performed By: #### A DIFF, CBC, MDW, GFR, CMP, TROPHS, PBNP, ANEU #### [address] [address] Creatinine [Mass/Vol] 1.15 mg/dL Normal 0.50-1.20 [facility] ([place]) Comment on above: Performed By: #### A DIFF, CBC, MDW, GFR, CMP, TROPHS, PBNP, ANEU #### [address] [address] Electrolyte Balance 3.0 mEq/L Low 4.0-15.0 [facility] ([place]) Comment on above: Performed By: #### A DIFF, CBC, MDW, GFR, CMP, TROPHS, PBNP, ANEU #### [address] [address] Globulin 3.5 G/dL Normal 1.5-3.8 [facility] ([place]) Comment on above: Performed By: #### A DIFF, CBC, MDW, GFR, CMP, TROPHS, PBNP, ANEU #### [address] [address] Glucose [Mass/Vol] 94 mg/dL Normal 82-115 [facility] ([place]) Comment on above: Performed By: #### A DIFF, CBC, MDW, GFR, CMP, TROPHS, PBNP, ANEU #### [address] [address] Potassium [Moles/Vol] 3.5 mmol/L Normal 3.5-5.0 [facility] ([place]) Comment on above: Performed By: #### A DIFF, CBC, MDW, GFR, CMP, TROPHS, PBNP, ANEU #### [address] [address] Sodium [Moles/Vol] 136 mmol/L Normal 136-145 [facility] ([place]) Comment on above: Performed By: #### A DIFF, CBC, MDW, GFR, CMP, TROPHS, PBNP, ANEU #### [address] [address] Total Protein 7.6 G/dL Normal 5.7-8.2 [facility] ([place]) Comment on above: Result Comment: No te - New Reference Range in effect 19 Performed By: #### A DIFF, CBC, MDW, GFR, CMP, TROPHS, PBNP, ANEU #### [address] [address] Urea nitrogen [Mass/Vol] 17.0 mg/dL Normal 8.0-22.0 [facility] ([place]) Comment on above: Performed By: #### A DIFF, CBC, MDW, GFR, CMP, TROPHS, PBNP, ANEU #### [address] [address] DDHSon 06-18-2023 D-Dimer HS <200 Normal 0-230 [facility] ([place]) Comment on above: Order Comment: ER is to order DDHS per lab protocol. Result Comment: DDN: Results reported in D-DU ng/mL. Negative for D-dimer. DVT/PE is highly unlikely. Note: False negative results may be seen in patients on anticoagulant therapy. The result of the D-Dimer test should be evaluated in the context of all the clinical and laboratory data available. In those instances where the laboratory result does not agree with the clinical evaluation, additional tests should be performed accordingly. Performed By: #### A DIFF, CBC, MDW, GFR, CMP, TROPHS, PBLEVAR, ANEU #### [place] [address] LABORATORYOrdered By: SYSTEM SYSTEM on 06-18-2023 TSH Qn 31.216 mIU/mL High 0.550 - 4.780 mIU/mL ADM SS Comment on above: Interpretive Data: * *Note - New Reference Range in effect 19 Troponin I.cardiac DL <= 0.01 ng/mL [Mass/Vol] 8 ng/L Normal 0 - 34 ng/L ADM SS Comment on above: Interpretive Data: High Sensitive Troponin I Reference Ranges: Female: 0-34 ng/L Male: 0-54 ng/L Testing performed on [employer] IM analyzer using direct chemiluminescent technology. Albumin BCP dye [Mass/Vol] 4.1 G/dL Normal 3.2 - 4.8 G/dL ADM SS Albumin/Globulin [Mass ratio] 1.2 {ratio} Normal 0.9 - 1.6 ratio ADM SS ALP [Catalytic activity/Vol] 105 U/L Normal 38 - 126 U/L ADM SS ALT No additional P-5'-P [Catalytic activity/Vol] 14 U/L Normal 10 - 49 U/L ADM SS AST [Catalytic activity/Vol] 20 U/L Normal 8 - 34 U/L ADM SS Basophils (Bld) [#/Vol] 0.0 103/mcL Normal 0.0 - 0.3 10^3/mcL Workflow SS Basophils/100 WBC (Bld) 0.5 % Normal 0.0 - 2.5 % Workflow SS Bilirubin [Mass/Vol] 0.60 mg/dL Normal 0.20 - 1.20 mg/dL ADM SS Comment on above: Interpretive Data: U se of this assay is not recommended for patients undergoing treatment with eltrombopag due to the potential for falsely elevated results. Calcium [Mass/Vol] 11.1 mg/dL High 8.7 - 10. 4 mg/dL ADM SS Chloride [Moles/Vol] 96 mmol/L Low 98 - 11 0 mEq/L ADM SS CO2 [Moles/Vol] 37 mmol/L High 22 - 32 mEq/L ADM SS Creatinine [Mass/Vol] 1.15 mg/dL Normal 0.50 - 1.20 mg/dL ADM SS Electrolyte Balance 3.0 mEq/L Low 4.0 - 15 .0 mEq/L ADM SS Eosinophils (Bld) [#/Vol] 0.2 103/mcL Normal 0.0 - 0.7 10^3/mcL Workflow SS Eosinophils/100 WBC (Bld) 4.1 % Normal 0.0 - 6.0 % Workflow SS Erythrocyte distribution width (RBC) [Ratio] 14.3 % Normal 11.5 - 15.5 % Workflow SS GFR/1.73 sq M.predicted among blacks MDRD (S/P/Bld) [Vol rate/Area] 54 ml/min/1.73sqm Invalid Interpretation Code ADM SS Comment on above: Interpretive Data: GFR Population mean for , Non- Americans Ages 20-29 = 116 mL/min/1.73 sq.m. Ages 30-39 = 107 mL/min/1.73 sq.m. Ages 40-49 = 99 mL/min/1.73 sq.m. Ages 50-59 = 93 mL/min/1.73 sq.m. Ages 60-69 = 85 mL/min/1.73 sq.m. Ages 70+ = 75 mL/min/1.73 sq.m. Chronic Kidney Disease: Less than 60 mL/min/1.73 square meters End Stage Renal Disease: Less than 15 mL/min/1.73 square meters GFR/1.73 sq M.predicted among non-blacks MDRD (S/P/Bld) [Vol rate/Area] 45 ml/min/1.73sqm Invalid Interpretation Code ADM SS Comment on above: Interpretive Data: GFR Population mean for , Non- Americans Ages 20-29 = 116 mL/min/1.73 sq.m. Ages 30-39 = 107 mL/min/1.73 sq.m. Ages 40-49 = 99 mL/min/1.73 sq.m. Ages 50-59 = 93 mL/min/1.73 sq.m. Ages 60-69 = 85 mL/min/1.73 sq.m. Ages 70+ = 75 mL/min/1.73 sq.m. Chronic Kidney Disease: Less than 60 mL/min/1.73 square meters End Stage Renal Disease: Less than 15 mL/min/1.73 square meters Globulin 3.5 G/dL Normal 1.5 - 3.8 G/dL ADM SS Glucose [Mass/Vol] 94 mg/dL Normal 82 - 115 mg/dL ADM SS Hematocrit (Bld) [Volume fraction] 44.3 % Normal 34.0 - 46.0 % Workflow SS Hemoglobin (Bld) [Mass/Vol] 15.1 G/dL Normal 12.0 - 16.0 G/dL AH Workflow SS Lymphocytes (Bld) [#/Vol] 1.5 103/mcL Normal 0.9 - 4.3 10^3/mcL Workflow SS Lymphocytes/100 WBC (Bld) 24.1 % Normal 20.0 - 40.0 % AH Workflow SS MCH (RBC) [Entitic mass] 31.1 pg Normal 27. 0 - 33.0 pg AH Workflow SS MCHC 34.1 G/dL Normal 32.0 - 36.0 G/dL Workflow SS MCV (RBC) [Entitic vol] 91.1 fL Normal 80.0 - 99.0 fL Workflow SS Monocyte distribution width Auto (Bld) [Entitic vol] 18.33 1 Normal 0.00 - 20.00 Workflow SS Comment on above: Result Comment: For ED adult patients suspected of sepsis, MDW<=20.0 does not rule out sepsis or risk of sepsis Monocytes (Bld) [#/Vol] 0.6 103/mcL Normal 0.1 - 1.4 10^3/mcL Workflow SS Monocytes/100 WBC (Bld) 10.0 % Normal 2.0 - 13.0 % AH Workflow SS Neutrophils (Bld) [#/Vol] 3.7 103/mcL Normal 2.3 - 8.1 10^3/mcL AH Workflow SS Neutrophils/100 WBC (Bld) 61.3 % Normal 50.0 - 75.0 % AH Workflow SS Platelet mean volume (Bld) [Entitic vol] 8.8 fL Normal 6.6 - 10.5 fL AH Workflow SS Platelets (Bld) [#/Vol] 139 103/mcL Low 150 - 450 10^3/mcL AH Workflow SS Potassium [Moles/Vol] 3.5 mmol/L Normal 3.5 - 5.0 mEq/L AH ADM SS Protein [Mass/Vol] 7.6 G/dL Normal 5.7 - 8.2 G/dL AH ADM SS Comment on above: Interpretive Data: * *Note - New Reference Range in effect 19 RBC (Bld) [#/Vol] 4.87 106/mcL Normal 4.10 - 5.3 0 10^6/mcL AH Workflow SS Sodium [Moles/Vol] 136 mmol/L Normal 136 - 145 mEq/L ADM SS Urea nitrogen [Mass/Vol] 17.0 mg/dL Normal 8.0 - 22.0 mg/dL AH ADM SS Urea nitrogen/Creatinine [Mass ratio] 14.8 ratio Normal 10.0 - 22.0 ratio AH ADM SS WBC (Bld) [#/Vol] 6.0 103/mcL Normal 4.5 - 10.8 10^3/mcL Workflow SS LABORATORYOrdered By: Chela washington on 06-18-2023 Base Excess 7.9 mmol/L Invalid Interpretation Code Main Rapid Comm SS CO2 [Moles/Vol] 35.3 mmol/L High 22.0 - 30.0 mmol/L Main Rapid Comm SS HCO3 (Bld) [Moles/Vol] 33.7 mmol/L High 21.0 - 29.0 mmol/L AH Main Rapid Comm SS Oxygen (Bld) [Partial pressure] 63.6 mm[Hg] Low 74.0 - 108.0 mm Hg AH Main Rapid Comm SS pCO2 51.5 mm[Hg] High 32.0 - 46.0 mm Hg Main Rapid Comm SS pH (Bld) 7.434 [pH] Normal 7.380 - 7.460 Main Rapid Comm SS LABORATORYOrdered By: Shabbir Pederson on 06-18-2023 D-Dimer HS ng/mL D-DU Normal 0 - 230 ng/mL D-DU AH [facility] SS Comment on above: Result Comment: DDN: Results reported in D-DU ng/mL. Negative for D-dimer. DVT/PE is highly unlikely. Note: False negative results may be seen in patients on anticoagulant therapy. Interpretive Data: T he result of the D-Dimer test should be evaluated in the context of all the clinical and laboratory data available. In those instances where the laboratory result does not agree with the clinical evaluation, additional tests should be performed accordingly. LABORATORYOrdered By: Sylvia Mendosa on 06-18-2023 Appearance (U) Clear (06/18/23 9:12 AM) Normal Clear AH Auto Urine SS Bilirubin Ql (U) Negative (06/18/23 9:12 AM) Normal Neg-Trace AH Auto Urine SS Color (U) Yellow (06/18/23 9:12 AM) Normal AH Auto Urine SS Glucose Test strip (U) [Mass/Vol] Negative Normal Negative AH Auto Urine SS Hemoglobin Auto test strip (U) [Mass/Vol] Negative (06/18/23 9:12 AM) Normal Neg-Trace AH Auto Urine SS Ketones Ql (U) Negative Normal Neg-Trace AH Auto Urine SS UA Leuk Est Negative (06/18/23 9:12 AM) Normal Negative AH Auto Urine SS UA Nitrite Negative (06/18/23 9:12 AM) Normal Negative AH Auto Urine SS UA pH 7.0 (06/18/23 9:12 AM) Normal 5.0 - 8.0 AH Auto Urine SS UA Protein Negative Normal Negative AH Auto Urine SS UA Spec Grav 1.020 (06/18/23 9:12 AM) Normal 1.006-1.029 AH Auto Urine SS UA Specimen Type Clean Catch (06/18/23 9:12 AM) Normal AH Auto Urine SS UA Urobilinogen 0.2 E.U./dL Normal 0.2-1.0 AH Auto Urine SS LABORATORYOrdered By: Ambika Durbin on 06-18-2023 Natriuretic peptide.B prohormone N-Terminal [Mass/Vol] 123 pg/mL Normal 0 - 1800 pg/mL Auto Chem SS Comment on above: Interpretive Data: N T-proBNP results of less than 300 pg/mL effectively rules out acute congestive heart failure with 99% negative predictive value. Laboratory - Chemistry and C hemistry - challengeOrdered By: SYSTEM SYSTEM on 06-18-2023 Troponin I.cardiac DL <= 0.01 ng/mL [Mass/Vol] 8 ng/L Normal 0 - 34 ng/L ADM SS Comment on above: Interpretive Data: High Sensitive Troponin I Reference Ranges: Female: 0-34 ng/L Male: 0-54 ng/L Testing performed on [employer] IM analyzer using direct chemiluminescent technology. PBNPon 06-18-2023 Natriuretic peptide B (Bld) [Mass/Vol] 123 pg/mL Normal 0-1800 [facility] ([place]) Comment on above: Result Comment: NT-p roBNP results of less than 300 pg/mL effectively rules out acute congestive heart failure with 99% negative predictive value. Performed By: #### B MP, GFR, TSH #### [place] [address] TROPHSon 06-18-2023 High Sensitivity Troponin I 8 ng/L Normal 0-34 [facility] ([place]) Comment on above: Result Comment: High Sensitive Troponin I Reference Ranges: Female: 0-34 ng/L Male: 0-54 ng/L Testing performed on [employer] IM analyzer using direct chemiluminescent technology. Performed By: #### A DIFF, CBC, MDW, GFR, CMP, TROPHS, PBNP, ANEU #### [place] [address] High Sensitivity Troponin I 8 ng/L Normal 0-34 [facility] ([place]) Comment on above: Result Comment: High Sensitive Troponin I Reference Ranges: Female: 0-34 ng/L Male: 0-54 ng/L Testing performed on [employer] IM analyzer using direct chemiluminescent technology. Performed By: #### B MP, GFR, TSH #### [place] [address] High Sensitivity Troponin I 8 ng/L Normal 0-34 [facility] ([place]) Comment on above: Result Comment: High Sensitive Troponin I Reference Ranges: Female: 0-34 ng/L Male: 0-54 ng/L Testing performed on [employer] IM analyzer using direct chemiluminescent technology. Performed By: #### A DIFF, CBC, MDW, GFR, CMP, TROPHS, PBNP, ANEU #### [place] [address] TSHon 06-18-2023 TSH 31.216 mIU/mL High 0.550-4.780 [facility] ([place]) Comment on above: Order Comment: add o n lab Result Comment: No te - New Reference Range in effect 19 Performed By: #### A DIFF, CBC, MDW, GFR, CMP, TROPHS, PBNP, ANEU #### [place] [address] UAon 06-18-2023 Color (U) Yellow Normal [facility] ([place]) Comment on above: Performed By: #### B MP, GFR, TSH #### [place] [address] Glucose (U) [Mass/Vol] Negative Normal Negative [facility] ([place]) Comment on above: Performed By: #### B MP, GFR, TSH #### [place] [address] Ketones Ql (U) Negative Normal Neg-Trace [facility] ([place]) Comment on above: Performed By: #### B MP, GFR, TSH #### [place] [address] UA Appear Clear Normal Clear [facility] ([place]) Comment on above: Performed By: #### B MP, GFR, TSH #### [place] [id number] UA Blood Negative Normal Neg-Trace [facility] ([place]) Comment on above: Performed By: #### B MP, GFR, TSH #### [address] [address] UA Leuk Est Negative Normal Negative [facility] ([place]) Comment on above: Performed By: #### B MP, GFR, TSH #### [place] [id number] UA Nitrite Negative Normal Negative [facility] ([place]) Comment on above: Performed By: #### B MP, GFR, TSH #### [address] [address] UA pH 7.0 Normal 5.0 - 8.0 [facility] ([place]) Comment on above: Performed By: #### B MP, GFR, TSH #### [address] [address] UA Protein Negative Normal Negative [facility] ([place]) Comment on above: Performed By: #### B MP, GFR, TSH #### [address] [address] UA Spec Grav 1.020 Normal 1.006-1.029 [facility] ([place]) Comment on above: Performed By: #### B MP, GFR, TSH #### [address] [address] UA Specimen Type Clean Catch Normal [facility] ([place]) Comment on above: Performed By: #### B MP, GFR, TSH #### [address] [address] UA Urobilinogen 0.2 E.U./dL Normal 0.2-1.0 [facility] ([place]) Comment on above: Performed By: #### B MP, GFR, TSH #### [address] [address] Urobilinogen (U) [Mass/Vol] Negative Normal Neg-Trace [facility] ([place]) Comment on above: Performed By: #### B MP, GFR, TSH #### [address] [address] XR CHEST 1 VIEWon 06-18-2023 XR CHEST 1 VIEW ORIGINAL EXAMINATION: ONE XRAY VIEW OF THE CHEST TECHNIQUE: One view, AP upright COMPARISON: Chest 02/26/2022 HISTORY: ORDERING SYSTEM PROVIDED HISTORY: Reason for Exam: chest pain FINDINGS: Support devices: None Cardiomediastinal: The heart is stable in size and configuration. Lungs: Mild bibasilar subsegmental atelectasis. No pulmonary edema, consolidation or a pleural effusion. Pneumothorax: None Osseous: No acute osseous pathology. The bones are diffusely demineralized. End-stage bilateral shoulder arthrosis. Foreshortening of the distal left clavicle secondary to either degenerative or postoperative changes. IMPRESSION: No acute pulmonary disease. Interpreted by: Indy Ramirez MD Preliminary Report By: Indy Ramirez MD Electronically signed By Indy Ramirez MD Dictated Date: 06/18/2023 8:20:28 AM Prelim Date: 06/18/2023 8:22:34 AM Sign Date: 06/18/2023 8:22:34 AM Ordering Provider: JACKSON Hassan [facility] ([place]) .Auto Diffon 05-23-2023 Basophil, Absolute 0.0 10 3/mcL Normal 0.0-0.3 [facility] ([place]) Comment on above: Performed By: #### A DIFF, CBC, MDW, GFR, CMP, TROPHS, PBNP, ANEU #### [address] [address] Basophils/100 WBC (Bld) 0.4 % Normal 0.0-2.5 [facility] ([place]) Comment on above: Performed By: #### A DIFF, CBC, MDW, GFR, CMP, TROPHS, PBNP, ANEU #### [address] [address] Eosinophil, Absolute 0.2 10 3/mcL Normal 0.0-0.7 [facility] ([place]) Comment on above: Performed By: #### A DIFF, CBC, MDW, GFR, CMP, TROPHS, PBNP, ANEU #### [address] [address] Eosinophils/100 WBC (Bld) 4.2 % Normal 0.0-6.0 [facility] ([place]) Comment on above: Performed By: #### A DIFF, CBC, MDW, GFR, CMP, TROPHS, PBNP, ANEU #### [address] [address] Lymphocyte, Absolute 1.5 10 3/mcL Normal 0.9-4.3 [facility] ([place]) Comment on above: Performed By: #### A DIFF, CBC, MDW, GFR, CMP, TROPHS, PBNP, ANEU #### [address] [address] Lymphocytes/100 WBC (Bld) 29.8 % Normal 20.0-40.0 [facility] ([place]) Comment on above: Performed By: #### A DIFF, CBC, MDW, GFR, CMP, TROPHS, PBNP, ANEU #### [address] [address] Monocyte, Absolute 0.7 10 3/mcL Normal 0.1-1.4 [facility] ([place] Comment on above: Performed By: #### A DIFF, CBC, MDW, GFR, CMP, TROPHS, PBNP, ANEU #### [address] [address] Monocytes/100 WBC (Bld) 14.2 % High 2.0-13.0 [facility] ([place]) Comment on above: Performed By: #### A DIFF, CBC, MDW, GFR, CMP, TROPHS, PBNP, ANEU #### [address] [address] Neutrophils/100 WBC (Bld) 51.4 % Normal 50.0-75.0 [facility] ([place]) Comment on above: Performed By: #### A DIFF, CBC, MDW, GFR, CMP, TROPHS, PBNP, ANEU #### [address] [address] .NEUABSon 05-23-2023 Neutrophil, Absolute 2.6 10 3/mcL Normal 2.3-8.1 [facility] ([place]) Comment on above: Performed By: #### A DIFF, CBC, MDW, GFR, CMP, TROPHS, PBNP, ANEU #### [address] [address] CBCon 05-23-2023 Erythrocyte distribution width (RBC) [Ratio] 14.0 % Normal 11.5-15.5 [facility] ([place]) Comment on above: Performed By: #### A DIFF, CBC, MDW, GFR, CMP, TROPHS, PBNP, ANEU #### [address] [address] Hematocrit (Bld) [Volume fraction] 42.1 % Normal 34.0-46.0 [facility] ([place]) Comment on above: Performed By: #### A DIFF, CBC, MDW, GFR, CMP, TROPHS, PBNP, ANEU #### [place] [id number] Hgb 14.2 G/dL Normal 12.0-16.0 [facility] ([place]) Comment on above: Performed By: #### A DIFF, CBC, MDW, GFR, CMP, TROPHS, PBNP, ANEU #### [place] [address] MCH (RBC) [Entitic mass] 30.5 pg Normal 27.0-33.0 [facility] ([place]) Comment on above: Performed By: #### A DIFF, CBC, MDW, GFR, CMP, TROPHS, PBNP, ANEU #### [place] [address] MCHC 33.7 G/dL Normal 32.0-36.0 [facility] ([place]) Comment on above: Performed By: #### A DIFF, CBC, MDW, GFR, CMP, TROPHS, PBNP, ANEU #### [place] [address] MCV (RBC) [Entitic vol] 90.6 fL Normal 80.0-99.0 A [facility] ([place]) Comment on above: Performed By: #### A DIFF, CBC, MDW, GFR, CMP, TROPHS, PBNP, ANEU #### [place] [id number] Platelet 105 10 3/mcL Low 150-450 [facility] ([place]) Comment on above: Performed By: #### A DIFF, CBC, MDW, GFR, CMP, TROPHS, PBNP, ANEU #### [place] [id number] Platelet mean volume (Bld) [Entitic vol] 8.1 fL Normal 6.6-10.5 [facility] ([place]) Comment on above: Performed By: #### A DIFF, CBC, MDW, GFR, CMP, TROPHS, PBNP, ANEU #### [place] [id number] RBC 4.64 10 6/mcL Normal 4.10-5.30 [facility] ([place]) Comment on above: Performed By: #### A DIFF, CBC, MDW, GFR, CMP, TROPHS, PBNP, ANEU #### [place] [address] WBC 5.0 10 3/mcL Normal 4.5-10.8 [facility] ([place]) Comment on above: Performed By: #### A DIFF, CBC, MDW, GFR, CMP, TROPHS, PBNP, ANEU #### [address] [address] PBNPon 05-23-2023 Natriuretic peptide B (Bld) [Mass/Vol] 106 pg/mL Normal 0-1800 [facility] ([place]) Comment on above: Result Comment: NT-p roBNP results of less than 300 pg/mL effectively rules out acute congestive heart failure with 99% negative predictive value. Performed By: #### A DIFF, CBC, MDW, GFR, CMP, TROPHS, PBNP, ANEU #### [address] [address] FT4on 02-04-2023 Free T4 [Mass/Vol] 0.91 ng/dL Normal 0.89-1.76 [facility] ([place]) Comment on above: Result Comment: No te - New Reference Range in effect 19 Performed By: #### B MP, GFR, TSH #### [place] [address] .Auto Diffon 02-03-2023 Basophil, Absolute 0.0 10 3/mcL Normal 0.0-0.3 [facility] ([place]) Comment on above: Performed By: #### B MP, GFR, TSH #### [place] [address] Basophils/100 WBC (Bld) 0.2 % Normal 0.0-2.5 A [facility] ([place]) Comment on above: Performed By: #### B MP, GFR, TSH #### [facility] [address] [place], [place] [address] Eosinophil, Absolute 0.1 10 3/mcL Normal 0.0-0.7 [facility] ([place]) Comment on above: Performed By: #### B MP, GFR, TSH #### [address] [address] Eosinophils/100 WBC (Bld) 2.4 % Normal 0.0-6.0 [facility] ([place]) Comment on above: Performed By: #### B MP, GFR, TSH #### [address] [address] Lymphocyte, Absolute 1.3 10 3/mcL Normal 0.9-4.3 [facility] ([place]) Comment on above: Performed By: #### B MP, GFR, TSH #### [address] [address] Lymphocytes/100 WBC (Bld) 22.5 % Normal 20.0-40.0 [facility] ([place]) Comment on above: Performed By: #### B MP, GFR, TSH #### [address] [address] Monocyte, Absolute 0.8 10 3/mcL Normal 0.1-1.4 [facility] ([place]) Comment on above: Performed By: #### B MP, GFR, TSH #### [address] [address] Monocytes/100 WBC (Bld) 13.3 % High 2.0-13.0 A [facility] ([place]) Comment on above: Performed By: #### B MP, GFR, TSH #### [address] [address] Neutrophils/100 WBC (Bld) 61.6 % Normal 50.0-75.0 [facility] ([place]) Comment on above: Performed By: #### B MP, GFR, TSH #### [address] [address] .GFRon 02-03-2023 GFR >60 Normal [facility] ([place]) Comment on above: Result Comment: GFR Population mean for , Non- Americans Ages 20-29 = 116 mL/min/1.73 sq.m. Ages 30-39 = 107 mL/min/1.73 sq.m. Ages 40-49 = 99 mL/min/1.73 sq.m. Ages 50-59 = 93 mL/min/1.73 sq.m. Ages 60-69 = 85 mL/min/1.73 sq.m. Ages 70+ = 75 mL/min/1.73 sq.m. Chronic Kidney Disease: Less than 60 mL/min/1.73 square meters End Stage Renal Disease: Less than 15 mL/min/1.73 square meters Performed By: #### A DIFF, CBC, MDW, GFR, CMP, TROPHS, PBNP, ANEU #### [address] [address] GFR Non- 56 ml/min/1.73sqm Normal [facility] ([place]) Comment on above: Result Comment: GFR Population mean for , Non- Americans Ages 20-29 = 116 mL/min/1.73 sq.m. Ages 30-39 = 107 mL/min/1.73 sq.m. Ages 40-49 = 99 mL/min/1.73 sq.m. Ages 50-59 = 93 mL/min/1.73 sq.m. Ages 60-69 = 85 mL/min/1.73 sq.m. Ages 70+ = 75 mL/min/1.73 sq.m. Chronic Kidney Disease: Less than 60 mL/min/1.73 square meters End Stage Renal Disease: Less than 15 mL/min/1.73 square meters Performed By: #### A DIFF, CBC, MDW, GFR, CMP, TROPHS, PBNP, ANEU #### [address] [address] .NEUABSon 02-03-2023 Neutrophil, Absolute 3.6 10 3/mcL Normal 2.3-8.1 [facility] ([place]) Comment on above: Performed By: #### B MP, GFR, TSH #### [address] [address] BMPon 02-03-2023 BUN/Creatinine Ratio 29.5 ratio High 10.0-22.0 [facility] ([place]) Comment on above: Performed By: #### B MP, GFR, TSH #### [address] [address] Calcium [Mass/Vol] 10.3 mg/dL Normal 8.7-10.4 [facility] ([place]) Comment on above: Performed By: #### B MP, GFR, TSH #### [address] [address] Chloride [Moles/Vol] 102 mmol/L Normal 98-110 [facility] ([place]) Comment on above: Performed By: #### B MP, GFR, TSH #### [address] [address] CO2 [Moles/Vol] 35 mmol/L High 22-32 [facility] ([place]) Comment on above: Performed By: #### B MP, GFR, TSH #### [address] [address] Creatinine [Mass/Vol] 0.95 mg/dL Normal 0.50-1.20 [facility] ([place]) Comment on above: Performed By: #### B MP, GFR, TSH #### [address] [address] Electrolyte Balance 1.0 mEq/L Low 4.0-15.0 [facility] ([place]) Comment on above: Performed By: #### B MP, GFR, TSH #### [address] [address] Glucose [Mass/Vol] 103 mg/dL Normal 82-115 [facility] ([place]) Comment on above: Performed By: #### B MP, GFR, TSH #### [address] [address] Potassium [Moles/Vol] 4.0 mmol/L Normal 3.5-5.0 [facility] ([place]) Comment on above: Result Comment: Spec imen slightly hemolyzed. Performed By: #### B MP, GFR, TSH #### [address] [address] Sodium [Moles/Vol] 138 mmol/L Normal 136-145 [facility] ([place]) Comment on above: Performed By: #### B MP, GFR, TSH #### [place] [address] Urea nitrogen [Mass/Vol] 28.0 mg/dL High 8.0-22.0 [facility] ([place]) Comment on above: Performed By: #### B MP, GFR, TSH #### [place] [address] CBCon 02-03-2023 Erythrocyte distribution width (RBC) [Ratio] 14.1 % Normal 11.5-15.5 [facility] ([place]) Comment on above: Performed By: #### B MP, GFR, TSH #### [place] [id number] Hematocrit (Bld) [Volume fraction] 42.9 % Normal 34.0-46.0 [facility] ([place]) Comment on above: Performed By: #### B MP, GFR, TSH #### [place] [address] Hgb 14.1 G/dL Normal 12.0-16.0 [facility] ([place]) Comment on above: Performed By: #### B MP, GFR, TSH #### [place] [id number] MCH (RBC) [Entitic mass] 31.0 pg Normal 27.0-33.0 [facility] ([place]) Comment on above: Performed By: #### B MP, GFR, TSH #### [place] [address] MCHC 32.9 G/dL Normal 32.0-36.0 [facility] ([place]) Comment on above: Performed By: #### B MP, GFR, TSH #### [place] [id number] MCV (RBC) [Entitic vol] 94.2 fL Normal 80.0-99.0 A [facility] ([place]) Comment on above: Performed By: #### B MP, GFR, TSH #### [place] [id number] Platelet 111 10 3/mcL Low 150-450 [facility] ([place]) Comment on above: Performed By: #### B MP, GFR, TSH #### [address] [address] Platelet mean volume (Bld) [Entitic vol] 8.8 fL Normal 6.6-10.5 [facility] ([place]) Comment on above: Performed By: #### B MP, GFR, TSH #### [place] [address] RBC 4.56 10 6/mcL Normal 4.10-5.30 [facility] ([place]) Comment on above: Performed By: #### B MP, GFR, TSH #### [place] [address] WBC 5.8 10 3/mcL Normal 4.5-10.8 [facility] ([place]) Comment on above: Performed By: #### B MP, GFR, TSH #### [place] [address] TSHon 02-03-2023 TSH 7.106 mIU/mL High 0.550-4.780 [facility] ([place]) Comment on above: Result Comment: No te - New Reference Range in effect 19 Performed By: #### B MP, GFR, TSH #### [place] [address] BLOOD BANK COMMENTon 023 BLOOD BANK COMMENT See Comment Normal [facility] Comment on above: Order Comment: Speci men Type: BLOOD SPECIMENOrdering Facility: [facility] Address: [address] [place] [address] Result Comment: SEAN MCCALL requested, notified Wilmer at 1740 on 12/31/22. Performed By: #### L [id number], TSCR ####[facility] BLOOD BANKCLIA [id number] [place] [address] [place] CBC panel Auto (Bld)on 12-31 Erythrocyte distribution width (RBC) [Ratio] 13.8 % Normal 11.5-15.0 [facility] Comment on above: Order Comment: Speci men Type: BLOOD SPECIMENOrdering Facility: [facility] Address: [address] [place] [address] Performed By: #### 5 8410-2 ####[facility] LABORATORYCLIA [id number] [address] [place] Hematocrit (Bld) [Volume fraction] 39.5 % Normal 36.0-46.0 [facility] Comment on above: Order Comment: Speci men Type: BLOOD SPECIMENOrdering Facility: [facility] Address: [address] [place] [address] Performed By: #### 5 8410-2 ####[facility] LABORATORYCLIA [id number] [place] [address] [place] Hemoglobin (Bld) [Mass/Vol] 13.1 g/dL Normal 11.5-15.5 [facility] Comment on above: Order Comment: Speci men Type: BLOOD SPECIMENOrdering Facility: [facility] Address: [address] [place] [address] Performed By: #### 5 8410-2 ####[facility] LABORATORYCLIA [id number] [address] [place] MCH (RBC) [Entitic mass] 30.8 pg Normal 26.0-34.0 [facility] Comment on above: Order Comment: Speci men Type: BLOOD SPECIMENOrdering Facility: [facility] Address: [address] [place] [address] Performed By: #### 5 8410-2 ####[facility] LABORATORYCLIA [id number] [address] [place] MCHC (RBC) [Mass/Vol] 33.2 g/dL Normal 30.5-36.0 [facility] Comment on above: Order Comment: Speci men Type: BLOOD SPECIMENOrdering Facility: [facility] Address: [address] [place] [address] Performed By: #### 5 8410-2 ####[facility] LABORATORYCLIA [id number] [address] [place] MCV (RBC) [Entitic vol] 92.9 fL Normal 80.0-100.0 [facility] Comment on above: Order Comment: Speci men Type: BLOOD SPECIMENOrdering Facility: [facility] Address: [address] [place] [address] Performed By: #### 5 8410-2 ####[facility] LABORATORYCLIA [id number] [place] [id number] [place] Nucleated RBC (Bld) [#/Vol] 10*3/uL Normal <0.01 [facility] Comment on above: Order Comment: Speci men Type: BLOOD SPECIMENOrdering Facility: [facility] Address: [address] [place] [address] Performed By: #### 5 8410-2 ####[facility] LABORATORYCLIA [id number] [place] [address] [place] Platelet mean volume (Bld) [Entitic vol] 9.4 fL Normal 9.0-12.7 [facility] Comment on above: Order Comment: Speci men Type: BLOOD SPECIMENOrdering Facility: [facility] Address: [address] [place] [address] Performed By: #### 5 8410-2 ####[facility] LABORATORYCLIA [id number] [place] [address] [place] Platelets (Bld) [#/Vol] 97 10*3/uL Low 150-400 [facility] Comment on above: Order Comment: Speci men Type: BLOOD SPECIMENOrdering Facility: [facility] Address: [address] [place] [address] Result Comment: No c lot detected. Performed By: #### 5 8410-2 ####[facility] LABORATORYCLIA [id number] [place] [address] [place] RBC (Bld) [#/Vol] 4.25 10*6/uL Normal 3.90-5.20 [facility] Comment on above: Order Comment: Speci men Type: BLOOD SPECIMENOrdering Facility: [facility] Address: [address] [place] [address] Performed By: #### 5 8410-2 ####[facility] LABORATORYCLIA [id number] [place] [id number] [place] WBC (Bld) [#/Vol] 5.97 10*3/uL Normal 3.70-11.00 [facility] Comment on above: Order Comment: Speci men Type: BLOOD SPECIMENOrdering Facility: [facility] Address: [address] [place] [address] Performed By: #### 5 8410-2 ####[facility] LABORATORYCLIA [id number] [place] [id number] [facility] Comprehensive metabolic 2000 panelon 12-31-2022 Albumin [Mass/Vol] 3.7 g/dL Normal 3.2-5.0 [facility] Comment on above: Order Comment: Speci men Type: BLOOD SPECIMENOrdering Facility: [facility] Address: [address] [place] [address] Performed By: #### 2 4323-8 ####[facility] LABORATORYCLIA [id number] [address] [place] ALP [Catalytic activity/Vol] 81 U/L Normal 45-117 [facility] Comment on above: Order Comment: Speci men Type: BLOOD SPECIMENOrdering Facility: [facility] Address: [address] [place] [address] Performed By: #### 2 4323-8 ####[facility] LABORATORYCLIA [id number] [address] [place] ALT [Catalytic activity/Vol] 16 U/L Normal 13-61 [facility] Comment on above: Order Comment: Speci men Type: BLOOD SPECIMENOrdering Facility: [facility] Address: [address] [place] [address] Result Comment: Resu lts may be falsely depressed after the administration of Sulfasalazine and/or Sulfapyridine. Performed By: #### 2 4323-8 ####[facility] LABORATORYCLIA [id number] [place] [id number] [facility] Anion gap [Moles/Vol] 3 mmol/L Low 5-16 [facility] Comment on above: Order Comment: Speci men Type: BLOOD SPECIMENOrdering Facility: [facility] Address: [address] [place] [address] Performed By: #### 2 4323-8 ####[facility] LABORATORYCLIA [id number] [place] [address] [place] AST [Catalytic activity/Vol] 18 U/L Normal 8-34 [facility] Comment on above: Order Comment: Speci men Type: BLOOD SPECIMENOrdering Facility: [facility] Address: [address] [place] [address] Result Comment: Resu lts may be falsely depressed after the administration of Sulfasalazine and/or Sulfapyridine. Performed By: #### 2 4323-8 ####[facility] LABORATORYCLIA [id number] [place] [address] [place] Bilirubin [Mass/Vol] 0.8 mg/dL Normal 0.2-1.0 [facility] Comment on above: Order Comment: Speci men Type: BLOOD SPECIMENOrdering Facility: [facility] Address: [address] [place] [address] Performed By: #### 2 4323-8 ####[facility] LABORATORYCLIA [id number] [place] [address] [place] Calcium [Mass/Vol] 9.8 mg/dL Normal 8.5-10.5 [facility] Comment on above: Order Comment: Speci men Type: BLOOD SPECIMENOrdering Facility: [facility] Address: [address] [place] [address] Performed By: #### 2 4323-8 ####[facility] LABORATORYCLIA [id number] [place] [address] [place] Chloride [Moles/Vol] 102 mmol/L Normal 98-107 [facility] Comment on above: Order Comment: Speci men Type: BLOOD SPECIMENOrdering Facility: [facility] Address: [address] [place] [address] Performed By: #### 2 4323-8 ####[facility] LABORATORYCLIA [id number] [place] [address] [place] CO2 [Moles/Vol] 36 mmol/L High 21-32 [facility] Comment on above: Order Comment: Speci men Type: BLOOD SPECIMENOrdering Facility: [facility] Address: [address] [place] [address] Performed By: #### 2 4323-8 ####[facility] LABORATORYCLIA [id number] [place] [address] [place] Creatinine [Mass/Vol] 0.82 mg/dL Normal 0.51-0.95 [facility] Comment on above: Order Comment: Speci men Type: BLOOD SPECIMENOrdering Facility: [facility] Address: [address] [place] [address] Result Comment: Linn ents receiving either N-Acetylcysteine (NAC) or Metamizole prior to venipuncture, may have falsely depressed results. Performed By: #### 2 4323-8 ####[facility] LABORATORYCLIA [id number] [address] Creatinine and Glomerular filtration rate.predicted panel (S/P/Bld) 71 mL/min/1.73m??? Normal >=60 [facility] Comment on above: Order Comment: Speci men Type: BLOOD SPECIMENOrdering Facility: [facility] Address: [address] [place] [address] Result Comment: Esme mated Glomerular Filtration Rate (eGFR) is calculated using the 2020 CKD-EPI creatinine equation. This equation utilizes serum creatinine, sex, and age as parameters. The creatinine assay has traceable calibration to isotope dilution-mass spectrometry. Refer to KDIGO guidelines for clinical interpretation. In patients with unstable renal function, e.g. those with acute kidney injury, the eGFR may not accurately reflect actual GFR. Performed By: #### 2 4323-8 ####[facility] LABORATORYCLIA [id number] [address] [place] Glucose [Mass/Vol] 88 mg/dL Normal 70-100 [facility] Comment on above: Order Comment: Speci men Type: BLOOD SPECIMENOrdering Facility: [facility] Address: [address] [place] [address] Result Comment: The [place] [employer] (ADA) provides guidance for cutoff values for fasting glucose and random glucose. The ADA defines fasting as no caloric intake for at least 8 hours. Fasting plasma glucose results between 100 to 125 mg/dL indicate increased risk for diabetes (prediabetes).Fasting plasma glucose results greater than or equal to 126 mg/dL meet the criteria for diagnosis of diabetes. In the absence of unequivocal hyperglycemia, results should be confirmed by repeat testing. In a patient with classic symptoms of hyperglycemia or hyperglycemic crisis, random plasma glucose results greater than or equal to 200 mg/dL meet the criteria for diagnosis of diabetes.Reference: Standards of Medical Care in Diabetes 2016, [place] [employer]. Diabetes Care. 2016.39(Suppl 1).Results may be falsely elevated after the administration of Sulfapyridine.Results may be falsely depressed after the administration of Sulfasalazine. Performed By: #### 2 4323-8 ####[facility] LABORATORYCLIA [id number] [place] [address] [place] Potassium [Moles/Vol] 3.9 mmol/L Normal 3.5-5.1 [facility] Comment on above: Order Comment: Speci men Type: BLOOD SPECIMENOrdering Facility: [facility] Address: [address] [place] [address] Performed By: #### 2 4323-8 ####[facility] LABORATORYCLIA [id number] [place] [address] [place] Protein [Mass/Vol] 6.7 g/dL Normal 6.0-8.5 [facility] Comment on above: Order Comment: Speci men Type: BLOOD SPECIMENOrdering Facility: [facility] Address: [address] [place] [address] Performed By: #### 2 4323-8 ####[facility] LABORATORYCLIA [id number] [place] [address] [place] Sodium [Moles/Vol] 141 mmol/L Normal 136-145 [facility] Comment on above: Order Comment: Speci men Type: BLOOD SPECIMENOrdering Facility: [facility] Address: [address] [facility] [place] [address] Performed By: #### 2 4323-8 ####[facility] LABORATORYCLIA [id number] [place] [id number] [place] Urea nitrogen [Mass/Vol] 19 mg/dL Normal 10-02 [facility] Comment on above: Order Comment: Speci men Type: BLOOD SPECIMENOrdering Facility: [facility] Address: [place] [id number] Performed By: #### 2 4323-8 ####[facility] LABORATORYCLIA [id number] [place] [id number] [place] ECG COMPLETEon 12-31-2022 ECG COMPLETE Normal [facility] ED NOTEon 12-31-2022 ED NOTE HNO ID: [id number] Author: Danelle Goff RN Service: ? Author Type: Registered Nurse Type: ED Notes Filed: 12/31/2022 7:43 PM Note Text: Ambulated in hallway with pulse ox on room air. Pulse ox remains between 88-90%, heart rate 84. Normal [facility] ED NOTE HNO ID: [id number] Author: Venkat Pfeiffer RN Service: ? Author Type: Registered Nurse Type: ED Notes Filed: 12/31/2022 3:42 PM Note Text: Bed: 27-ED Expected date: Expected time: Means of arrival: Comments: triage Normal [facility] ED NOTE Normal [facility] ED PROV NOTEon 12-31-2022 ED PROV NOTE Normal [facility] Hemoccult Stl Qlon Hemoglobin.gastrointesti nal Ql (Stl) Negative Normal [facility] Comment on above: Performed By: #### 2 335-8 ####[facility] LABORATORYCLIA [id number] [place] [id number] [place] PT panel Coag (PPP)on 2022 INR Coag (PPP) [Relative time] 1.1 {INR} Normal 0.9-1.3 [facility] Comment on above: Order Comment: Speci men Type: BLOOD SPECIMENOrdering Facility: [facility] Address: [address] [place] [address] Result Comment: Serena min K Antagonist (VKA) Therapeutic Range: INR 2 to 3 (Target INR of 2.5)Note: For patients treated with VKA drugs, such as warfarin, the [place] [employer] 2012 Guideline recommends a therapeutic INR range of 2 to 3 (target INR of 2.5). This recommendation includes high-risk patients with antiphospholipid syndrome with previous arterial or venous thromboembolism, current-generation mechanical or bioprosthetic aortic heart valve replacement.Note: Patients with mechanical aortic valve replacement and additional risk factors for thromboembolic events (atrial fibrillation, previous thromboembolism, LV dysfunction, hypercoagulable conditions) or an older generation mechanical AVR (i.e., ball in-Cage) or any mechanical MVR should have a INR therapeutic range of 2.5 to 3.5 (target INR of 3).Josue JONES, et al. Chest 2012, 141:7S-47SNishoj RA, et al. [facility] 2017, 70: 252-289 Performed By: #### 3 4528-0, 82085-1 ####[facility] LABORATORYCLIA [id number] [place] [address] [place] PT Coag (PPP) [Time] 11.4 s Normal 9.7-13.0 [facility] Comment on above: Order Comment: Speci men Type: BLOOD SPECIMENOrdering Facility: [facility] Address: [address] [place] [address] Performed By: #### 3 4528-0, 57414-0 ####[facility] LABORATORYCLIA [id number] [place] [address] [place] TYPE + SCREENon 12-31-2022 ABO O Normal [facility] Comment on above: Order Comment: Speci men Type: BLOOD SPECIMENOrdering Facility: [facility] Address: [address] [place] [address] Performed By: #### L [id number], TSCR ####[facility] BLOOD BANKCLIA [id number] [place] [address] [place] HISTORICAL AB SCR STATUS Negative Normal [facility] Comment on above: Order Comment: Speci men Type: BLOOD SPECIMENOrdering Facility: [facility] Address: [address] [place] [address] Performed By: #### L [id number], TSCR ####[facility] BLOOD BANKCLIA [id number] [address] Rh Nom (Bld) Negative Normal [facility] Comment on above: Order Comment: Speci men Type: BLOOD SPECIMENOrdering Facility: [facility] Address: [address] [place] [address] Performed By: #### L [id number], TSCR ####[facility] BLOOD BANKCLIA [id number] [address] TYPE AND SCREEN EXPIRATION 01/03/2023 23:59 Normal [facility] Comment on above: Order Comment: Speci men Type: BLOOD SPECIMENOrdering Facility: [facility] Address: [address] [place] [address] Performed By: #### L [id number], TSCR ####[facility] BLOOD BANKCLIA [id number] [address] Urinalysis complete panel (U )on 12-31-2022 Bacteria LM.HPF (Urine sed) [#/Area] Rare Abnormal None Seen [facility] Comment on above: Order Comment: Speci men Type: URINE SPECIMENOrdering Facility: [facility] Address: [address] [place] [address] Performed By: #### 2 4356-8 ####[facility] LABORATORYCLIA [id number] [address] Bilirubin Ql (U) Negative Normal Negative [facility] Comment on above: Order Comment: Speci men Type: URINE SPECIMENOrdering Facility: [facility] Address: [address] [place] [address] Performed By: #### 2 4356-8 ####[facility] LABORATORYCLIA [id number] [address] [place] Clarity (Unsp spec) Clear Normal Clear [facility] Comment on above: Order Comment: Speci men Type: URINE SPECIMENOrdering Facility: [facility] Address: [address] [place] [address] Performed By: #### 2 4356-8 ####[facility] LABORATORYCLIA [id number] [place] [address] [place] Color (U) Straw Normal Yellow [facility] Comment on above: Order Comment: Speci men Type: URINE SPECIMENOrdering Facility: [facility] Address: [address] [place] [address] Performed By: #### 2 4356-8 ####[facility] LABORATORYCLIA [id number] [place] [address] [place] Epithelial cells LM.HPF (Urine sed) [#/Area] Few Normal [facility] Comment on above: Order Comment: Speci men Type: URINE SPECIMENOrdering Facility: [facility] Address: [address] [place] [address] Performed By: #### 2 4356-8 ####[facility] LABORATORYCLIA [id number] [place] [address] [place] Glucose Test strip (U) [Mass/Vol] Negative Normal Negative [facility] Comment on above: Order Comment: Speci men Type: URINE SPECIMENOrdering Facility: [facility] Address: [address] [place] [address] Performed By: #### 2 4356-8 ####[facility] LABORATORYCLIA [id number] [place] [address] [place] Hemoglobin Ql (U) Negative Normal Negative [facility] Comment on above: Order Comment: Speci men Type: URINE SPECIMENOrdering Facility: [facility] Address: [address] [place] [address] Performed By: #### 2 4356-8 ####[facility] LABORATORYCLIA [id number] [place] [address] [place] Ketones Ql (U) Negative Normal Negative [facility] Comment on above: Order Comment: Speci men Type: URINE SPECIMENOrdering Facility: [facility] Address: [address] [place] [address] Performed By: #### 2 4356-8 ####[facility] LABORATORYCLIA [id number] [address] Leukocyte esterase Test strip Ql (U) Negative Normal Negative [facility] Comment on above: Order Comment: Speci men Type: URINE SPECIMENOrdering Facility: [facility] Address: [address] [place] [address] Performed By: #### 2 4356-8 ####[facility] LABORATORYCLIA [id number] [place] [address] [place] Nitrite Ql (U) Negative Normal Negative [facility] Comment on above: Order Comment: Speci men Type: URINE SPECIMENOrdering Facility: [facility] Address: [address] [place] [address] Performed By: #### 2 4356-8 ####[facility] LABORATORYCLIA [id number] [place] [address] [place] pH (U) 8.0 [pH] Normal 5.0-8.0 [facility] Comment on above: Order Comment: Speci men Type: URINE SPECIMENOrdering Facility: [facility] Address: [address] [place] [address] Performed By: #### 2 4356-8 ####[facility] LABORATORYCLIA [id number] [place] [address] [place] Protein (U) [Mass/Vol] Negative Normal Negative [facility] Comment on above: Order Comment: Speci men Type: URINE SPECIMENOrdering Facility: [facility] Address: [address] [place] [address] Performed By: #### 2 4356-8 ####[facility] LABORATORYCLIA [id number] [place] [id number] [place] RBC LM.HPF (Urine sed) [#/Area] 0-3 /HPF Normal 0-3 /HPF [facility] Comment on above: Order Comment: Speci men Type: URINE SPECIMENOrdering Facility: [facility] Address: [address] [place] [address] Performed By: #### 2 4356-8 ####[facility] LABORATORYCLIA [id number] [address] Specific gravity (U) [Rel density] 1.012 Normal 1.005-1.030 [facility] Comment on above: Order Comment: Speci men Type: URINE SPECIMENOrdering Facility: [facility] Address: [address] [place] [address] Performed By: #### 2 4356-8 ####[facility] LABORATORYCLIA [id number] [address] [place] Urobilinogen Ql (U) Negative Normal Negative [facility] Comment on above: Order Comment: Speci men Type: URINE SPECIMENOrdering Facility: [facility] Address: [address] [place] [address] Performed By: #### 2 4356-8 ####[facility] LABORATORYCLIA [id number] [address] [place] WBC LM.HPF (Urine sed) [#/Area] 0-5 /HPF Normal 0-5 /HPF [facility] Comment on above: Order Comment: Speci men Type: URINE SPECIMENOrdering Facility: [facility] Address: [address] [place] [address] Performed By: #### 2 4356-8 ####[facility] LABORATORYCLIA [id number] [address] [place] XR CHEST 1V FRONTAL PORTon 1 XR CHEST 1V FRONTAL PORT Normal [facility] aPTT PPPon 12-31-2022 aPTT Coag (PPP) [Time] 28.6 s Normal 23.0-32.4 [facility] Comment on above: Order Comment: Speci men Type: BLOOD SPECIMENOrdering Facility: [facility] Address: [address] [place] [address] Performed By: #### 3 4528-0, 40555-6 ####[facility] LABORATORYCLIA [id number] [place] [address] [place] LABORATORYOrdered By: SYSTEM SYSTEM on 02-16-2022 Basophils (Bld) [#/Vol] 0.0 103/mcL Invalid Interpretation Code 0.0 - 0.3 10^3/mcL Workflow SS Basophils/100 WBC (Bld) 0.1 % Invalid Interpretation Code 0.0 - 2.5 % AH Workflow SS Calcium [Mass/Vol] 9.7 mg/dL Invalid Interpretation Code 8.7 - 10.4 mg/dL ADM SS Chloride [Moles/Vol] 97 mmol/L Invalid Interpretation Code 98 - 110 mEq/L ADM SS CO2 [Moles/Vol] 34 mmol/L Invalid Interpretation Code 22 - 32 mEq/L ADM SS Creatinine [Mass/Vol] 0.80 mg/dL Invalid Interpretation Code 0.50 - 1.20 mg/dL ADM SS Electrolyte Balance 6.0 mEq/L Invalid Interpretation Code 4.0 - 15.0 mEq/L ADM SS Eosinophils (Bld) [#/Vol] 0.0 103/mcL Invalid Interpretation Code 0.0 - 0.7 10^3/mcL Workflow SS Eosinophils/100 WBC (Bld) 0.1 % Invalid Interpretation Code 0.0 - 6.0 % Workflow SS Erythrocyte distribution width (RBC) [Ratio] 15.1 % Invalid Interpretation Code 11.5 - 15.5 % Workflow SS GFR/1.73 sq M.predicted among blacks MDRD (S/P/Bld) [Vol rate/Area] ml/min/1.73sqm Invalid Interpretation Code Chemistry S GFR/1.73 sq M.predicted among non-blacks MDRD (S/P/Bld) [Vol rate/Area] ml/min/1.73sqm Invalid Interpretation Code Chemistry S Glucose [Mass/Vol] 69 mg/dL Invalid Interpretation Code 82 - 115 mg/dL ADM SS Hematocrit (Bld) [Volume fraction] 40.7 % Invalid Interpretation Code 34.0 - 46.0 % Workflow SS Hemoglobin (Bld) [Mass/Vol] 13.7 G/dL Invalid Interpretation Code 12.0 - 16.0 G/dL Workflow SS Lymphocytes (Bld) [#/Vol] 1.5 103/mcL Invalid Interpretation Code 0.9 - 4.3 10^3/mcL AH Workflow SS Lymphocytes/100 WBC (Bld) 21.6 % Invalid Interpretation Code 20.0 - 40.0 % AH Workflow SS Magnesium [Mass/Vol] 1.9 mg/dL Invalid Interpretation Code 1.6 - 2.4 mg/dL AH ADM SS MCH (RBC) [Entitic mass] 29.6 pg Invalid Interpretation Code 27.0 - 33.0 pg AH Workflow SS MCHC 33.6 G/dL Invalid Interpretation Code 32.0 - 36.0 G/dL AH Workflow SS MCV (RBC) [Entitic vol] 88.3 fL Invalid Interpretation Code 80.0 - 99.0 fL AH Workflow SS Monocytes (Bld) [#/Vol] 1.0 103/mcL Invalid Interpretation Code 0.1 - 1.4 10^3/mcL AH Workflow SS Monocytes/100 WBC (Bld) 13.4 % Invalid Interpretation Code 2.0 - 13.0 % AH Workflow SS Neutrophils (Bld) [#/Vol] 4.6 103/mcL Invalid Interpretation Code 2.3 - 8.1 10^3/mcL AH Workflow SS Neutrophils/100 WBC (Bld) 64.8 % Invalid Interpretation Code 50.0 - 75.0 % AH Workflow SS Platelet mean volume (Bld) [Entitic vol] 8.5 fL Invalid Interpretation Code 6.6 - 10.5 fL AH Workflow SS Platelets (Bld) [#/Vol] 104 103/mcL Invalid Interpretation Code 150 - 450 10^3/mcL AH Workflow SS Potassium [Moles/Vol] 3.3 mmol/L Invalid Interpretation Code 3.5 - 5.0 mEq/L ADM SS RBC (Bld) [#/Vol] 4.61 106/mcL Invalid Interpretation Code 4.10 - 5.30 10^6/mcL AH Workflow SS Sodium [Moles/Vol] 137 mmol/L Invalid Interpretation Code 136 - 145 mEq/L ADM SS Urea nitrogen [Mass/Vol] 23.0 mg/dL Invalid Interpretation Code 8.0 - 22.0 mg/dL ADM SS Urea nitrogen/Creatinine [Mass ratio] 28.8 ratio Invalid Interpretation Code 10.0 - 22.0 ratio AH ADM SS WBC (Bld) [#/Vol] 7.1 103/mcL Invalid Interpretation Code 4.5 - 10.8 10^3/mcL AH Workflow SS LABORATORYOrdered By: SYSTEM SYSTEM on 02-15-2022 Basophils (Bld) [#/Vol] 0.0 103/mcL Invalid Interpretation Code 0.0 - 0.3 10^3/mcL AH Workflow SS Basophils/100 WBC (Bld) 0.0 % Invalid Interpretation Code 0.0 - 2.5 % AH Workflow SS Calcium [Mass/Vol] 10.0 mg/dL Invalid Interpretation Code 8.7 - 10.4 mg/dL ADM SS Chloride [Moles/Vol] 98 mmol/L Invalid Interpretation Code 98 - 110 mEq/L ADM SS CO2 [Moles/Vol] 31 mmol/L Invalid Interpretation Code 22 - 32 mEq/L ADM SS Creatinine [Mass/Vol] 0.71 mg/dL Invalid Interpretation Code 0.50 - 1.20 mg/dL ADM SS Electrolyte Balance 7.0 mEq/L Invalid Interpretation Code 4.0 - 15.0 mEq/L ADM SS Eosinophils (Bld) [#/Vol] 0.0 103/mcL Invalid Interpretation Code 0.0 - 0.7 10^3/mcL Workflow SS Eosinophils/100 WBC (Bld) 0.0 % Invalid Interpretation Code 0.0 - 6.0 % Workflow SS Erythrocyte distribution width (RBC) [Ratio] 15.1 % Invalid Interpretation Code 11.5 - 15.5 % Workflow SS GFR/1.73 sq M.predicted among blacks MDRD (S/P/Bld) [Vol rate/Area] ml/min/1.73sqm Invalid Interpretation Code Chemistry S GFR/1.73 sq M.predicted among non-blacks MDRD (S/P/Bld) [Vol rate/Area] ml/min/1.73sqm Invalid Interpretation Code Chemistry S Glucose [Mass/Vol] 97 mg/dL Invalid Interpretation Code 82 - 115 mg/dL ADM SS Hematocrit (Bld) [Volume fraction] 39.8 % Invalid Interpretation Code 34.0 - 46.0 % Workflow SS Hemoglobin (Bld) [Mass/Vol] 13.4 G/dL Invalid Interpretation Code 12.0 - 16.0 G/dL Workflow SS Lymphocytes (Bld) [#/Vol] 1.2 103/mcL Invalid Interpretation Code 0.9 - 4.3 10^3/mcL Workflow SS Lymphocytes/100 WBC (Bld) 13.0 % Invalid Interpretation Code 20.0 - 40.0 % AH Workflow SS MCH (RBC) [Entitic mass] 29.9 pg Invalid Interpretation Code 27.0 - 33.0 pg AH Workflow SS MCHC 33.7 G/dL Invalid Interpretation Code 32.0 - 36.0 G/dL AH Workflow SS MCV (RBC) [Entitic vol] 88.7 fL Invalid Interpretation Code 80.0 - 99.0 fL AH Workflow SS Monocytes (Bld) [#/Vol] 0.8 103/mcL Invalid Interpretation Code 0.1 - 1.4 10^3/mcL AH Workflow SS Monocytes/100 WBC (Bld) 9.1 % Invalid Interpretation Code 2.0 - 13.0 % AH Workflow SS Neutrophils (Bld) [#/Vol] 6.9 103/mcL Invalid Interpretation Code 2.3 - 8.1 10^3/mcL AH Workflow SS Neutrophils/100 WBC (Bld) 77.9 % Invalid Interpretation Code 50.0 - 75.0 % AH Workflow SS Platelet mean volume (Bld) [Entitic vol] 8.9 fL Invalid Interpretation Code 6.6 - 10.5 fL AH Workflow SS Platelets (Bld) [#/Vol] 105 103/mcL Invalid Interpretation Code 150 - 450 10^3/mcL AH Workflow SS Potassium [Moles/Vol] 4.4 mmol/L Invalid Interpretation Code 3.5 - 5.0 mEq/L ADM SS RBC (Bld) [#/Vol] 4.49 106/mcL Invalid Interpretation Code 4.10 - 5.30 10^6/mcL AH Workflow SS Sodium [Moles/Vol] 136 mmol/L Invalid Interpretation Code 136 - 145 mEq/L ADM SS Urea nitrogen [Mass/Vol] 21.0 mg/dL Invalid Interpretation Code 8.0 - 22.0 mg/dL ADM SS Urea nitrogen/Creatinine [Mass ratio] 29.6 ratio Invalid Interpretation Code 10.0 - 22.0 ratio AH ADM SS WBC (Bld) [#/Vol] 8.9 103/mcL Invalid Interpretation Code 4.5 - 10.8 10^3/mcL AH Workflow SS LABORATORYOrdered By: SYSTEM SYSTEM on 02-14-2022 Basophils (Bld) [#/Vol] 0.0 103/mcL Invalid Interpretation Code 0.0 - 0.3 10^3/mcL AH Workflow SS Basophils/100 WBC (Bld) 0.1 % Invalid Interpretation Code 0.0 - 2.5 % Workflow SS Calcium [Mass/Vol] 10.1 mg/dL Invalid Interpretation Code 8.7 - 10.4 mg/dL ADM SS Chloride [Moles/Vol] 96 mmol/L Invalid Interpretation Code 98 - 110 mEq/L ADM SS CO2 [Moles/Vol] 30 mmol/L Invalid Interpretation Code 22 - 32 mEq/L ADM SS Creatinine [Mass/Vol] 0.68 mg/dL Invalid Interpretation Code 0.50 - 1.20 mg/dL ADM SS Electrolyte Balance 11.0 mEq/L Invalid Interpretation Code 4.0 - 15.0 mEq/L ADM SS Eosinophils (Bld) [#/Vol] 0.0 103/mcL Invalid Interpretation Code 0.0 - 0.7 10^3/mcL Workflow SS Eosinophils/100 WBC (Bld) 0.0 % Invalid Interpretation Code 0.0 - 6.0 % Workflow SS Erythrocyte distribution width (RBC) [Ratio] 15.1 % Invalid Interpretation Code 11.5 - 15.5 % Workflow SS GFR/1.73 sq M.predicted among blacks MDRD (S/P/Bld) [Vol rate/Area] ml/min/1.73sqm Invalid Interpretation Code Chemistry S GFR/1.73 sq M.predicted among non-blacks MDRD (S/P/Bld) [Vol rate/Area] ml/min/1.73sqm Invalid Interpretation Code Chemistry S Glucose [Mass/Vol] 118 mg/dL Invalid Interpretation Code 82 - 115 mg/dL ADM SS Hematocrit (Bld) [Volume fraction] 41.2 % Invalid Interpretation Code 34.0 - 46.0 % Workflow SS Hemoglobin (Bld) [Mass/Vol] 13.8 G/dL Invalid Interpretation Code 12.0 - 16.0 G/dL Workflow SS Lymphocytes (Bld) [#/Vol] 1.0 103/mcL Invalid Interpretation Code 0.9 - 4.3 10^3/mcL Workflow SS Lymphocytes/100 WBC (Bld) 10.1 % Invalid Interpretation Code 20.0 - 40.0 % Workflow SS Magnesium [Mass/Vol] 2.0 mg/dL Invalid Interpretation Code 1.6 - 2.4 mg/dL ADM SS MCH (RBC) [Entitic mass] 29.9 pg Invalid Interpretation Code 27.0 - 33.0 pg Workflow SS MCHC 33.6 G/dL Invalid Interpretation Code 32.0 - 36.0 G/dL Workflow SS MCV (RBC) [Entitic vol] 89.1 fL Invalid Interpretation Code 80.0 - 99.0 fL AH Workflow SS Monocytes (Bld) [#/Vol] 0.3 103/mcL Invalid Interpretation Code 0.1 - 1.4 10^3/mcL AH Workflow SS Monocytes/100 WBC (Bld) 3.3 % Invalid Interpretation Code 2.0 - 13.0 % Workflow SS Neutrophils (Bld) [#/Vol] 8.8 103/mcL Invalid Interpretation Code 2.3 - 8.1 10^3/mcL Workflow SS Neutrophils/100 WBC (Bld) 86.5 % Invalid Interpretation Code 50.0 - 75.0 % Workflow SS Phosphate [Mass/Vol] 2.6 mg/dL Invalid Interpretation Code 2.4 - 5.1 mg/dL ADM SS Platelet mean volume (Bld) [Entitic vol] 9.1 fL Invalid Interpretation Code 6.6 - 10.5 fL Workflow SS Platelets (Bld) [#/Vol] 118 103/mcL Invalid Interpretation Code 150 - 450 10^3/mcL Workflow SS Potassium [Moles/Vol] 4.5 mmol/L Invalid Interpretation Code 3.5 - 5.0 mEq/L ADM SS Comment on above: Result Comment: Spec imen slightly hemolyzed. RBC (Bld) [#/Vol] 4.63 106/mcL Invalid Interpretation Code 4.10 - 5.30 10^6/mcL Workflow SS Sodium [Moles/Vol] 137 mmol/L Invalid Interpretation Code 136 - 145 mEq/L ADM SS Urea nitrogen [Mass/Vol] 23.0 mg/dL Invalid Interpretation Code 8.0 - 22.0 mg/dL ADM SS Urea nitrogen/Creatinine [Mass ratio] 33.8 ratio Invalid Interpretation Code 10.0 - 22.0 ratio ADM SS WBC (Bld) [#/Vol] 10.1 103/mcL Invalid Interpretation Code 4.5 - 10.8 10^3/mcL Workflow SS LABORATORYOrdered By: SYSTEM SYSTEM on 02-13-2022 Troponin I.cardiac DL <= 0.01 ng/mL [Mass/Vol] 6.30 ng/L Invalid Interpretation Code 0.00 - 34.00 ng/L ADM SS Albumin BCP dye [Mass/Vol] 3.4 G/dL Invalid Interpretation Code 3.2 - 4.8 G/dL ADM SS Albumin/Globulin [Mass ratio] 0.9 {ratio} Invalid Interpretation Code 0.9 - 1.6 ratio ADM SS ALP [Catalytic activity/Vol] 98 U/L Invalid Interpretation Code 38 - 126 U/L ADM SS ALT No additional P-5'-P [Catalytic activity/Vol] 22 U/L Invalid Interpretation Code 10 - 49 U/L ADM SS AST [Catalytic activity/Vol] 32 U/L Invalid Interpretation Code 8 - 34 U/L ADM SS Bilirubin [Mass/Vol] 0.60 mg/dL Invalid Interpretation Code 0.20 - 1.20 mg/dL ADM SS Globulin 3.6 G/dL Invalid Interpretation Code 1.5 - 3.8 G/dL ADM SS Protein [Mass/Vol] 7.0 G/dL Invalid Interpretation Code 5.7 - 8.2 G/dL ADM SS Troponin I.cardiac DL <= 0.01 ng/mL [Mass/Vol] 5.50 ng/L Invalid Interpretation Code 0.00 - 34.00 ng/L ADM SS CK [Catalytic activity/Vol] 103 U/L Invalid Interpretation Code 7 - 185 U/L ADM SS Magnesium [Mass/Vol] 1.4 mg/dL Invalid Interpretation Code 1.6 - 2.4 mg/dL ADM SS Phosphate [Mass/Vol] 1.7 mg/dL Invalid Interpretation Code 2.4 - 5.1 mg/dL ADM SS Troponin I.cardiac DL <= 0.01 ng/mL [Mass/Vol] 5.43 ng/L Invalid Interpretation Code 0.00 - 34.00 ng/L ADM SS LABORATORYOrdered By: Ambika Alaniz on 02-13-2022 CK.MB [Mass/Vol] 2.01 ng/mL Invalid Interpretation Code 0.00 - 5.00 ng/mL ADM SS Free T4 index Calc [Mass/Vol] Not Valid Invalid Interpretation Code 0.0 - 4.5 Chemistry S Comment on above: Result Comment: CPK <185 invalidates relative index LABORATORYOrdered By: Jerica Umanzor on 02-13-2022 M. pneumoniae IgM IA Ql (S) Negative (02/13/22 1:31 AM) Invalid Interpretation Code AH Man Viro/Sero SS Mycoplasma IgG Positive *NA* (02/13/22 1:31 AM) Invalid Interpretation Code AH Auto Viro/Sero SS No Panel Informationon 02-13 Legionella Urine Ag Presumptive negative for L. pneumophila serogroup 1 antigen in urine, suggesting no recent or current infection. Legionnaire's disease cannot be ruled out since other serogroups and species may also cause disease. [facility] Work Phone: Streptococcus Pneumoniae Urine Antig Streptococcus pneumoniae antigen Positive for pneumococcal pneumonia. [facility] Work Phone: Comment on above: This test has not be en evaluated on patients taking antibiotics for greater than 24 hours or on patients who have recently completed an antibiotic regimen. The accuracy of this test has not been proven in young children. LABORATORYOrdered By: SYSTEM SYSTEM on 02-12-2022 Perf Loc - POCT Tested at AM Invalid Interpretation Code AM Telcor Subsection Comment on above: Result Comment: [facility] [address] [place], [place] [address] Perf Loc - POCT Tested at AM Invalid Interpretation Code AM Telcor Subsection Comment on above: Result Comment: [facility] [address] [place], [place] [address] Perf Loc - POCT Tested at AM Invalid Interpretation Code AM Telcor Subsection Comment on above: Result Comment: [facility] [address] [place], [place] [address] LABORATORYOrdered By: Lab FRANKIE Blackburn on 02-12-2022 Performing Instrument - POCT [id number] Invalid Interpretation Code AM Telcor Subsection Rapid Molecular Influenza A (POC) Positive *ABN* (02/12/22 3:46 PM) Invalid Interpretation Code Negative AM Telcor Subsection Rapid Molecular Influenza B (POC) Negative (02/12/22 3:46 PM) Invalid Interpretation Code Negative AM Telcor Subsection Performing Instrument - POCT [id number] Invalid Interpretation Code AM Telcor Subsection D-dimer (POC) 243 ng/mL D-DU Invalid Interpretation Code <=349ng/mL D-DU AM Telcor Subsection Performing Instrument - POCT [id number] Invalid Interpretation Code AM Telcor Subsection Natriuretic peptide B (Bld) [Mass/Vol] 41 pg/mL Invalid Interpretation Code <=99pg/mL AM Telcor Subsection Troponin I.cardiac [Mass/Vol] ng/mL Invalid Interpretation Code <=0.05ng/mL AM Telcor Subsection BUN/Creatinine Ratio (POC) 24.6 ratio Invalid Interpretation Code 10.0 - 22.0 ratio AM Telcor Subsection Calcium Level Ionized (POC) 1.18 mmol/L Invalid Interpretation Code 1.12 - 1.32 mmol/L AM Telcor Subsection Chloride [Moles/Vol] 100 mmol/L Invalid Interpretation Code 98 - 110 mEq/L AM Telcor Subsection CO2 [Moles/Vol] 31 mmol/L Invalid Interpretation Code 22 - 32 mEq/L AM Telcor Subsection Creatinine [Mass/Vol] 0.87 mg/dL Invalid Interpretation Code 0.50 - 1.20 mg/dL AM Telcor Subsection Electrolyte Balance (POC) 11.0 mEq/L Invalid Interpretation Code 4.0 - 15.0 mEq/L AM Telcor Subsection Est GFR (POC) ml/min/1.73sqm Invalid Interpretation Code AM Telcor Subsection Est GFR Non- (POC) ml/min/1.73sqm Invalid Interpretation Code AM Telcor Subsection Glucose [Mass/Vol] 92 mg/dL Invalid Interpretation Code 82 - 115 mg/dL AM Telcor Subsection Potassium [Moles/Vol] 2.9 mmol/L Invalid Interpretation Code 3.5 - 5.0 mEq/L AM Telcor Subsection Sodium [Moles/Vol] 141 mmol/L Invalid Interpretation Code 136 - 145 mEq/L AM Telcor Subsection Urea nitrogen [Mass/Vol] 21.0 mg/dL Invalid Interpretation Code 8.0 - 22.0 mg/dL AM Telcor Subsection Basophils (Bld) [#/Vol] 0.01 103/mcL Invalid Interpretation Code 0.00 - 0.27 10^3/mcL AM Telcor Subsection Basophils/100 WBC (Bld) 0.2 % Invalid Interpretation Code 0.0 - 2.5 % AM Telcor Subsection Eosinophils (Bld) [#/Vol] 0.14 103/mcL Invalid Interpretation Code 0.00 - 0.65 10^3/mcL AM Telcor Subsection Eosinophils/100 WBC (Bld) 3.4 % Invalid Interpretation Code 0.0 - 6.0 % AM Telcor Subsection Erythrocyte distribution width (RBC) [Ratio] 14.9 % Invalid Interpretation Code 11.5 - 15.5 % AM Telcor Subsection Hematocrit (Bld) [Volume fraction] 37.8 % Invalid Interpretation Code 34.0 - 46.0 % AM Telcor Subsection Hemoglobin (Bld) [Mass/Vol] 12.8 G/dL Invalid Interpretation Code 12.0 - 16.0 G/dL AM Telcor Subsection Immature granulocytes (Bld) [#/Vol] 0.01 103/mcL Invalid Interpretation Code AM Telcor Subsection Immature granulocytes/100 WBC (Bld) 0.2 % Invalid Interpretation Code AM Telcor Subsection Lymphocytes (Bld) [#/Vol] 1.40 103/mcL Invalid Interpretation Code 0.90 - 4.32 10^3/mcL AM Telcor Subsection Lymphocytes/100 WBC (Bld) 33.6 % Invalid Interpretation Code 20.0 - 40.0 % AM Telcor Subsection MCH (RBC) [Entitic mass] 30.0 pg Invalid Interpretation Code 27.0 - 33.0 pg AM Telcor Subsection MCHC (RBC) [Mass/Vol] 33.9 G/dL Invalid Interpretation Code 32.0 - 36.0 G/dL AM Telcor Subsection MCV (RBC) [Entitic vol] 88.5 fL Invalid Interpretation Code 80.0 - 99.0 fL AM Telcor Subsection Monocytes (Bld) [#/Vol] 0.37 103/mcL Invalid Interpretation Code 0.09 - 1.40 10^3/mcL AM Telcor Subsection Monocytes/100 WBC (Bld) 8.9 % Invalid Interpretation Code 2.0 - 13.0 % AM Telcor Subsection Neutrophils (Bld) [#/Vol] 2.24 103/mcL Invalid Interpretation Code 2.25 - 8.10 10^3/mcL AM Telcor Subsection Neutrophils/100 WBC (Bld) 53.7 % Invalid Interpretation Code 50.0 - 75.0 % AM [facility] Subsection Platelet mean volume (Bld) [Entitic vol] 9.3 fL Invalid Interpretation Code 6.6 - 10.5 fL AM [facility] Subsection Platelets (Bld) [#/Vol] 72 103/mcL Invalid Interpretation Code 150 - 450 10^3/mcL AM [facility] Subsection RBC (Bld) [#/Vol] 4.27 106/mcL Invalid Interpretation Code 4.50 - 6.00 10^6/mcL AM [facility] Subsection WBC (Bld) [#/Vol] 4.17 103/mcL Invalid Interpretation Code 4.50 - 10.80 10^3/mcL AM [facility] Subsection LABORATORYon 02-12-2022 SARS-CoV-2 (COVID-19) RNA LYDIA+probe Ql (Unsp spec) Done Charted [facility] DISCH.SUMon 08-29-2020 DISCH.[facility] Patient Name: EMILY PERALTA [address] Date of : [address] [address] Unit Number: [id number] Discharge Summary Patient Status: ADM Liang Attending Doctor: Yessy Alatorre DO Service Date: 08/29/20 152 Discharge Summary Admit Date Admission Date Time: 08/28/202235 Anticipated Discharge Date 08/29/20 Final Dx/Problem List 1. Acute bronchitis 2. HTN (hypertension) 3. Panic attack 4. Hypothyroidism Patient Problems Reviewed: Yes Chief Complaint/HPI Shortness of breath Reason for Admission Acute bronchitis Hospital Course Patient is 79-year-old female with past medical history significant for chronic bronchitis, panic attacks, hypertension presented with complaints of shortness of breath. Please refer to Hand for full details. In ER, patient vitals were stable, labs were unremarkable, chest x-ray is negative. But she was noted to have wheezing and could not speak in full sentences. After she was given breathing treatments she still has wheezing hence she was admitted under observation for close monitoring. Patient was started on p.o. prednisone along with scheduled and as needed duo nebs and budesonide. Patient symptoms improved with breathing treatments. However, on examination it was noted that she has decreased breath sounds in right middle lobe region. She also complained of cough with yellow-colored sputum production. Even though, chest x-ray did not reveal any significant abnormality such as infiltrates but based on clinical examination we will provide empiric antibiotics. Patient was discharged home with the following recommendations -Continue p.o. prednisone as instructed -Continue breathing treatments and nebulizations -Provided prescription for nebulizer to use at home -Recommended to continue antibiotics azithromycin for 5 days Vital Signs Vital Signs (Last) Result Date Time Pulse Ox 96 08/29 0815 B/P 120/80 08/29 06 Temp 97.5 08/29 653 Pulse 84 08/29 0654 Resp 20 08/29 0654 Pertinent Physical Findings General: Pt is not in any acute distress HEENT: PERRL, no rhinorrhea, oral hygiene is good Neck: Supple, no lymphnode swelling or thyromegaly noticed Chest: S1, S2 present, regualr rate and rhythm, no murmurs, rub or gallop noticed Lungs: Decreased breath sounds in right middle lobe Abdomen: Soft, non distended, non tender, bowel sounds present Neurological: No deficits noticed Vascular: Peripheral pulses palpable and equal bilaterally Psychiatry: Normal mood Skin: No new skin lesions or rash noticed. Labs/Imaging Lab 72hr (CBC/BMP Fishbone) 08/28/202223: SARS-CoV-2 (PCR) NEGATIVE 08/28/201941: Troponin I 3.1 08/28/201941: [Embedded Image Not Available] Anion Gap 4 L, Est GFR ( Amer) Greater than 60, Est GFR (Non-Af Amer) Greater than 60, BUN/Creatinine Ratio 23, Glucose 93, Total Calcium 10.4, RBC 4.68, MCV 90.2, MCHC 33.9 , RDW 14.0, MPV 9.8, Immature Gran % (Auto) 0.4, Abs Immat Gran (auto) 0.00, Seg Neutrophils % 55.2, Lymphocytes % 32.1, Monocytes % 9.2, Eosinophils % 3.0, Basophils % 0.1, Neutrophils # 3.80, Lymphocytes # 2.20, Monocytes # 0.60, Eosinophils # 0.20, Basophils # 0.00, Nucleated RBCs 0.0, Platelet Estimate SLT DECREASED Prescriptions Continue taking these medications: amLODIPine BESYLATE* (Norvasc 5MG Tab*) 5 MG TABLET 5 MILLIGRAM ORAL EVERY DAY Hydrochlorothiazide* (hydroDIURIL 25 MG TAB*) 25 MG TABLET 25 MILLIGRAM ORAL DAILY WITH A MEAL Esomeprazole Mag (Nexium Cap) 20 MG CAPSULE.DR 20 MILLIGRAM ORAL ONCE DAILY BEFORE MEALS Mirabegron (Myrbetriq) 25 MG TAB.ER.24H 25 MILLIGRAM ORAL [place]-3 Fatty Acids/Fish Oil* (Fish Oil 1,000 MG Softgel*) 1 EACH CAPSULE 1 CAPSULE ORAL EVERY DAY Flaxseed Oil (Flax Oil) 1,000 MG CAPSULE 1,000 MILLIGRAM ORAL Cholecalciferol (Vitamin D3)* (Vitamin D3 1000 Unit tab*) 25 MCG TABLET 1,000 UNIT ORAL EVERY DAY [place]-3 Fatty Acids/Fish Oil* (Fish Oil 1,000 MG Softgel*) 1 EACH CAPSULE 1 CAPSULE ORAL EVERY DAY potassium CHLORIDE* (K-Dur 10MEQ Tab.sa*) 10 MEQ TABLET.ER 10 MILLIEQUIVALENT ORAL TWICE DAILY WITH MEALS Metoclopramide HCl* (Reglan*) 5 MG TABLET 5 MILLIGRAM ORAL 3 TIMES DAILY BEFORE MEALS hydrOXYzine PAMOATE* (Vistaril 50MG Cap*) 50 MG CAPSULE 50 MILLIGRAM ORAL 3 TIMES DAILY Omeprazole (PrilOSEC TAB) 20 MG TABLET.DR 20 MILLIGRAM ORAL EVERY DAY Levothyroxine Sodium* (Synthroid 0.150MG Tab*) 150 MCG TABLET 0.15 MILLIGRAM ORAL AT BEDTIME Instructions: friday through friday Labetalol HCl* (Trandate 200MG Tab*) 200 MG UDTAB 200 MILLIGRAM ORAL AT BEDTIME Bacillus Coagulans (Probiotic) 1 EACH CAPSULE.DR 1 EACH ORAL Baclofen* (Lioresal 10MG Tab*) 10 MG TABLET 10 MILLIGRAM ORAL 3 TIMES DAILY Aspirin EC* (Ecotrin 325MG Tab*) 325 MG TABLET.DR 325 MILLIGRAM ORAL EVERY DAY Acetaminophen* (Tylenol 500MG Tab*) 500 MG T (more content not included)... [facility] 08-29-2020 EMERGENCY PHYSICIAN REPORT This is a preliminary report only, as the practitioner review and authentication has not occurred. [facility] ER PHYSICIAN ASSESSMENT RECORDS : FlexChartData Event Time: 08/28/2020 23:10 Status: Signed [facility] Emily Peralta [[id number]] Attending Physician 79 / F / 1940 Chart (V2b) Chart created at 08/28/2020 22:33 by Bill Philip Chart closed at 08/28/2020 22:38 Entry in Emergency Department at 08/28/2020 18:16 Patient Name: Emily Peralta Record Number: [id number] Date: 08/28/2020 22:33 Entered Department at: 08/28/2020 18:16 Patient Seen at: 08/28/2020 21:22 Historian: Patient PCP: Bibiana Chief Complaint:chest tightness, sob Triage Note reviewed and Initial Vital Signs reviewed. Temperature: 98.4 F (36.9 C). Pulse: 69. Respiratory Rate: 20. Blood-pressure: 154/72. Oxygen Saturation: 95%. History of Present Illness: Patient is here with short of breath cough and wheeze. Is gone to bed when she laid down she could hardly get her breath and would wake up with a start wet herself and cough though she almost vomited. 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. She is noted that there is been no high fevers chills or sweats and she had her Covid shots months ago. [facility] PATIENT NAME: EMILY PERALTA [address] MEDICAL REC #: [id number] [place] [address] EMERGENCY DEPARTMENT REPORT EMERGENCY DEPARTMENT PHYSICIAN She has had no sickness or illness up until the last couple days with his cough and wheeze. No severe sputum production. No severe edema to arms or legs and no chest pain or pressure. HPI Elements: Onset: 3 Days ago; Timing: Gradual; Quality: Tightness (In lungs); Severity: maximum Moderate, now Moderate; Context: At Rest; Exacerbated by: Nothing; Alleviated by: Nothing Review of Systems. Constitutional: negative for Chills or Fever Eyes: negative for Eye Pain Ear/Nose/Throat: negative for Sore Throat Cardio-Vascular: negative for Chest Pain, Orthopnea, Palpitations or Syncope Respiratory: positive for Cough, Dyspnea and Wheezing, negative for Hemoptysis GI: negative for Abd. Pain, Nausea or Vomiting : negative for Hematuria, Incontinence when she is coughing Musculo-Skeletal: negative for Back Pain Neurological: negative for Confusion or Headache Hem/Endo: negative for Edema, Bleeding or Bruising Immunology: negative for Joint Pain All other systems reviewed and negative.. Past History, Medications, Allergies, Social History and Family History reviewed in nurses note. Past Medical History: Chronic bronchitis, early COPD Medications: Reviewed RN Note. Allergies: Reviewed RN Note Codeine(*N/A), Morphine(Nausea and Vomiting), Ativan(*N/A) Social History: Reviewed RN Note. Tobacco: None. Alcohol: None. Recreational Drugs: None. Retired nurse, Family History: Reviewed RN Note Physical Examination: General: Alert and Well Developed HEENT: Normal ENT inspection. Eyes: Lids Normal; . Oropharynx / Throat: Normal [facility] PATIENT NAME: EMILY PERALTA [facility] [address] MEDICAL REC #: [id number] [place] [address] EMERGENCY DEPARTMENT REPORT EMERGENCY DEPARTMENT PHYSICIAN Pharynx. Neck: No Lymphadenopathy, No Meningismus and Supple Respiratory: Wheezing in all lung carpenter, short and sentences, mild respiratory distress Cardio-Vascular: No murmur, No rub and RRR Abdomen: Non-tender and Soft Back: No CVA tenderness, No Midline Tenderness and Non-tender Extremity: No edema and Normal Equal pulses Neurological: Alert, Oriented X3 and No Gross Weakness Skin: No rash, No Petechiae, Warm and Dry Psychological: Mood/Affect Normal and Normal Memory/Judgment BMP, information as of 08/28/2020, 7:42 pm 139 --------+--------+--- -----andlt; 93 Anion Gap = 4 3.6 alert_gap=3 BUN/CREA: 23; CALCIUM TOTAL: 10.4 Mg/Dl CBC W/DIFF, information as of 08/28/2020, 7:42 pm 90.2 / 14.3 / 6.9 andgt;------andlt; 112* / 42.2 / N:55.2 BASO ABS: 0.00 K/Cu Mm; BASOPHIL %: 0.1 %; EOS ABS: 0.20 K/Cu Mm; EOSINOPHIL %: 3.0 %; IMMATR GRAN ABS: 0.00 K/Cu Mm; IMMATURE GRAN %: 0.4 %; LYMPH %: 32.1 %; LYMPH ABS: 2.20 K/Cu Mm; MCHC: 33.9 Gm/Dl; MONO ABS: 0.60 K/Cu Mm; MONOCYTE %: 9.2 %; MPV: 9.8; NEUTROPHIL ABS: 3.80 K/Cu Mm; NRBC: 0.0 %; PLT EST: Slt Decreased; RBC: 4.68 M/Cu Mm; RDW: 14.0 TROPONIN I, information as of 08/28/2020, 7:42 pm TROPONIN I: 3.1 Pg/Ml Cardiogram: Interpreted by me and Reviewed. Read Time: 08/28/2020 19:46 Rate: 65 bpm. Rate NormalRhythm Sinus RhythmAxis Left Parker DeviationIntervals NormalQRS NormalST/T Normal Interpretation: Sinus rhythm Comparison: No old Cardiogram available for comparison Imaging Study Obtained: CHES (more content not included)... 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 Her shortness of breath began Friday, August 26 and worsened last night to the point where she needed to sit up in a chair. She had some chest tightness but denies pain she states. No other symptoms. In ED her vitals are stable she is not hypoxic, labs are unremarkable, chest x-ray negative. Upon arrival to ED she was wheezing, could not speak in full sentences. After treatments in the ED she still has some wheezing. We will observe on medical floor. Past Medical/Surgical Hx Past Medical History Chronic bronchitis Panic attacks Hypertension Overactive bladder Restless leg syndrome Hyperlipidemia Hypothyroidism GERD Past Surgical History Cholecystectomy Hysterectomy Knee replacement Right hip replacement Cataract removal Surgery Family/Social History Substances Denies use of: Alcohol, Tobacco, Recreational Drugs. Advance Directives Advance Directives Full Code Allergies/Home Medications Allergies Coded Allergies: CODEINE (Mild, VOMITING HIVES 12/04/17) MORPHINE (Mild, VOMITING HIVES 12/04/17) Review of Systems Constitutional Denies: Fever, Chills. EENT Denies: Vision Change, Nasal Drainage. Cardiovascular Denies: Chest Pain, Palpitations, Syncope. Pulmonary Reports: Dyspnea, Cough. Denies: Sputum. Gastrointestinal Denies: Abdominal Pain, Nausea, Vomiting, Diarrhea. Genitourinary Denies: Dysuria. Musculoskeletal Denies: Joint Pain, Back Pain. Skin Denies: Rash. Lymphatic Denies: Enlarged Lymph Nodes. Neuro Denies: Syncope, Numbness, Tingling. Psychiatric Denies: Depression, Anxiety. Physical Exam Vital Signs Temperature 98.4, heart rate 66, respiratory rate 22, blood pressure 133/72, SPO2 95% room air Appearance - PE Awake, Alert, No distress Neck - PE Normal inspection, Supple HEENT - PE Head atraumatic, Eyes normal inspection, PERRLA, Hearing grossly normal, No signs of dehydration, Mucosa moist Respiratory - PE Respirations non-labored, Symmetrical expansion Respiratory Comment - PE End expiratory wheezing Cardiovascular - PE Rate WNL, Rhythm regular, Normal heart sounds Neurological - PE Alert, Oriented x 3, No motor deficit, No sensory deficit Abdomen - PE Bowel sounds present, Abdomen soft, Non-tender, No distension Extremity - PE Normal appearance, No pedal edema, Symmetrical Skin - PE Color normal, Skin warm, dry Additional Laboratory Tests 08/28 08/28 08/28 2224 1942 194 Chemistry Sodium (136 - 145 MMOL/L) 139 Potassium (3.5 - 5.1 MMOL/L) 3.6 Chloride (98 - 107 MMOL/L) 103 Carbon Dioxide (21 - 32 MMOL/L) 32.0 Anion Gap (5 - 16 MMOL/L) 4 L BUN (7 - 26 MG/DL) 17 Creatinine (0.510 - 0.950 MG/DL) 0.75 Est GFR ( Amer) Greater than 60 Est GFR (Non-Af Amer) Greater than 60 BUN/Creatinine Ratio (15 - 24) 23 Glucose (70 - 100 MG/DL) 93 Total Calcium (8.5 - 10.5 MG/DL) 10.4 Troponin I (0 - 34 pg/mL) 3.1 Hematology WBC (4.5 - 11.0 K/CUMM) 6.9 RBC (3.90 - 5.30 M/CU MM) 4.68 Hgb (11.5 - 15.5 G/DL) 14.3 Hct (35.0 - 47.0 %) 42.2 MCV (80.0 - 99.0 fl) 90.2 MCHC (32.0 - 36.0 GM/DL) 33.9 RDW (11 - 14.5) 14.0 Plt Count (150 - 450 K/CU MM) 112 L MPV (9.4 - 12.4) 9.8 Immature Gran % (Auto) (Less than 2 %) 0.4 Abs Immat Gran (auto) (Less than 2 K/CU MM) 0.00 Seg Neutrophils % (45 - 75 %) 55.2 Lymphocytes % (20 - 40 %) 32.1 Monocytes % (2 - 10 %) 9.2 Eosinophils % (0 - 5 %) 3.0 Basophils % (0 - 2 %) 0.1 Neutrophils # (2.0 - 8.3 K/CU MM) 3.80 Lymphocytes # (0.9 - 4.4 K/CU MM) 2.20 Monocytes # (0.1 - 1.1 K/CU MM) 0.60 Eosinophils # (0 - 0.5 K/CU MM) 0.20 Basophils # (0 - 0.2 K/CU MM) 0.00 Nucleated RBCs (Less than 1 %) 0.0 Platelet Estimate SLT DECREASED Serology SARS-CoV-2 (PCR) (Negative) NEGATIVE Conclusion / Plan Conclusion 1. Asthma exacerbation 2. HTN (hypertension) 3. Panic attack 4. Hypothyroidism 79-year-old female came to the ER because of shortness of breath worsening over a few days. She is speaking in full sentences and wheezing upon arrival to ED, after treatments she is wheezing still, able to speak in full sentences, not hypoxic. Will observe on medical floor. Acute asthma exacerbation, observe on medical floor, IV Solu-Medrol was given in ED, she has end (more content not included)... Normal [facility] [id number] 08-29-2020 SARS-CoV-2 (COVID-19) RNA LYDIA+probe Ql (Unsp spec) Negative Invalid Interpretation Code Negative [facility] Comment on above: Order Comment: Campu s: M Result Comment: [facility] LTS CALLED TO Linad JIMENEZ AT 2341 08/28/20 BY EMILY REDDING Negative results do not preclude SARS-CoV-2 infection and should not be used as the sole basis for treatment or other patient management decisions. Negative results must be combined with clinical observation, patient history, and epidemiological information. This test was performed by PCR. Performed By: #### L [id number] #### [facility] [address] [place] [address] [id number] [facility] Anion gap [Moles/Vol] 4 mmol/L Low 5-16 [facility] Comment on above: Order Comment: Campu s: M Performed By: #### L [id number], L500.99755 #### [facility] [address] [place] [address] Calcium [Mass/Vol] 10.4 mg/dL Normal 8.5-10.5 [facility] Comment on above: Order Comment: Campu s: M Result Comment: NOTE NEW NORMAL RANGE DUE TO REAGENT CHANGE Performed By: #### L 500.03342, L500.07862 #### [facility] [place] [address] Chloride [Moles/Vol] 103 mmol/L Normal 98-107 [facility] Comment on above: Order Comment: Campu s: M Performed By: #### L 500.41726, L500.50004 #### [facility] [place] [address] CO2 [Moles/Vol] 32.0 mmol/L Normal 21-32 [facility] Comment on above: Order Comment: Campu s: M Performed By: #### L 500.19362, [id number] #### [facility] [address] [place] [address] Creatinine [Mass/Vol] 0.75 mg/dL Normal 0.510-0.950 [facility] Comment on above: Order Comment: Campu s: M Result Comment: Linn ents receiving either N-Acetylcysteine (NAC) or Metamizole prior to venipuncture, may have falsely depressed results. Performed By: #### L 500.16701, L500.34761 #### [facility] [address] [place] [address] Glucose [Mass/Vol] 93 mg/dL Normal 70-100 [facility] Comment on above: Order Comment: Campu s: M Result Comment: 70-1 00- Normal Fasting; 100-125 Impaired Fasting; greater than 126 on more than one result- Diabetes. ADA guidelines. Results may be falsely elevated after the administration of Sulfapyridine. Results may be falsely depressed after the administration of Sulfasalazine. Performed By: #### L 500.37982, L500.48034 #### [facility] [address] [place], [place] [id number] Potassium [Moles/Vol] 3.6 mmol/L Normal 3.5-5.1 [facility] Comment on above: Order Comment: Campu s: M Performed By: #### L 500.44662, L500.98509 #### [facility] [place] [address] Sodium [Moles/Vol] 139 mmol/L Normal 136-145 [facility] Comment on above: Order Comment: Campu s: M Performed By: #### L 500.62776, L500.90629 #### [facility] [address] [place] [address] Urea nitrogen [Mass/Vol] 17 mg/dL Normal 7-26 [facility] Comment on above: Order Comment: Campu s: M Performed By: #### L 500.72832, L500.81504 #### [facility] [address] [place] [address] Urea nitrogen/Creatinine [Mass ratio] 23 mg/mg Normal 15-24 [facility] Comment on above: Order Comment: Campu s: M Performed By: #### L 500.88795, L500.53101 #### [facility] [address] [place] [address] CBC W/DIFFon 08-28-2020 BASO ABS 0.00 K/CU MM Normal 0-0.2 [facility] Comment on above: Order Comment: Campu s: M Performed By: #### L [id number] #### [facility] [address] [place] [address] Basophils/100 WBC (Bld) 0.1 % Normal 0-2 M [facility] Comment on above: Order Comment: Campu s: M Performed By: #### L [id number] #### [facility] [address] [place] [address] EOS ABS 0.20 K/CU MM Normal 0-0.5 [facility] Comment on above: Order Comment: Campu s: M Performed By: #### L [id number] #### [facility] [address] [place] [address] Eosinophils/100 WBC (Bld) 3.0 % Normal 0-5 [facility] Comment on above: Order Comment: Campu s: M Performed By: #### L [id number] #### [facility] [address] [place] [address] Erythrocyte distribution width (RBC) [Ratio] 14.0 % Normal 11-14.5 [facility] Comment on above: Order Comment: Campu s: M Performed By: #### L 200.31568 #### [facility] [address] [place] [address] Hematocrit (Bld) [Volume fraction] 42.2 % Normal 35.0-47.0 [facility] Comment on above: Order Comment: Campu s: M Performed By: #### L [id number] #### [facility] [address] [place] [address] Hemoglobin (Bld) [Mass/Vol] 14.3 g/dL Normal 11.5-15.5 [facility] Comment on above: Order Comment: Campu s: M Performed By: #### L 200.02995 #### [facility] [address] [place] [address] IMMATR GRAN ABS 0.00 K/CU MM Normal Less than 2 [facility] Comment on above: Order Comment: Campu s: M Performed By: #### L [id number] #### [facility] [address] [place] [address] IMMATURE GRAN % 0.4 % Normal Less than 2 [facility] Comment on above: Order Comment: Campu s: M Performed By: #### L [id number] #### [facility] [address] [place] [address] LYMPH ABS 2.20 K/CU MM Normal 0.9-4.4 [facility] Comment on above: Order Comment: Campu s: M Performed By: #### L [id number] #### [facility] [address] [place] [address] Lymphocytes/100 WBC (Bld) 32.1 % Normal 20-40 [facility] Comment on above: Order Comment: Campu s: M Performed By: #### L [id number] #### [facility] [address] [place] [address] MCHC (RBC) [Mass/Vol] 33.9 g/dL Normal 32.0-36.0 [facility] Comment on above: Order Comment: Campu s: M Performed By: #### L [id number] #### [facility] [address] [place] [address] MCV (RBC) [Entitic vol] 90.2 fL Normal 80.0-99.0 [facility] Comment on above: Order Comment: Campu s: M Performed By: #### L [id number] #### [facility] [address] [place] [address] MONO ABS 0.60 K/CU MM Normal 0.1-1.1 [facility] Comment on above: Order Comment: Campu s: M Performed By: #### L [id number] #### [facility] [address] [place] [address] Monocytes/100 WBC (Bld) 9.2 % Normal 2-10 [facility] Comment on above: Order Comment: Campu s: M Performed By: #### L [id number] #### [facility] [address] [place] [address] NEUTROPHIL ABS 3.80 K/CU MM Normal 2.0-8.3 [facility] Comment on above: Order Comment: Campu s: M Performed By: #### L [id number] #### [facility] [address] [place] [address] Neutrophils/100 WBC (Bld) 55.2 % Normal 45-75 [facility] Comment on above: Order Comment: Campu s: M Performed By: #### L [id number] #### [facility] [place] [id number] Nucleated RBC/100 WBC (Bld) [Ratio] 0.0 % Normal Less than 1 [facility] Comment on above: Order Comment: Campu s: M Performed By: #### L 200.52007 #### [facility] [address] [place], [place] [id number] Platelet mean volume (Bld) [Entitic vol] 9.8 fL Normal 9.4-12.4 [facility] Comment on above: Order Comment: Campu s: M Performed By: #### L 200.81935 #### [facility] [address] [place] [address] PLT 112 K/CU MM Low 150-450 [facility] Comment on above: Order Comment: Campu s: M Result Comment: Conf irmed by slide estimate. Performed By: #### L [id number] #### [facility] [address] [place] [address] PLT EST SLT DECREASED Normal [facility] Comment on above: Order Comment: Campu s: M Performed By: #### L [id number] #### [facility] [address] [place], [place] [id number] RBC 4.68 M/CU MM Normal 3.90-5.30 [facility] Comment on above: Order Comment: Campu s: M Performed By: #### L [id number] #### [facility] [address] [place] [address] WBC 6.9 K/CUMM Normal 4.5-11.0 [facility] Comment on above: Order Comment: Campu s: M Performed By: #### L [id number] #### [facility] [address] [place], [place] [id number] CHEST PA/AP AND LATERALon CHEST PA/AP AND LATERAL EXAMINATION: [facility] RADIOGRAPH (2 VIEW FRONTAL & LATERAL) CLINICAL HISTORY: Shortness of breath MQ: [id number] EXAM DATE/TIME: 08/28/2020 9:38 PM COMPARISON: No relevant prior studies available. RESULT: Lines, tubes, and devices: None. Lungs and pleura: No consolidation. No lung mass. No pleural effusion. No pneumothorax. Cardiomediastinal silhouette: Normal cardiomediastinal silhouette. Bones and soft tissues: Degenerative changes are present within the thoracic spine. Lumbar spine hardware. Aortic atherosclerosis. IMPRESSION: No acute radiographic abnormality. This report was electronically signed by Leonor Mckeon MD 08/28/2020 10:36 PM Reported By: LEONOR MCKEON MD Signed By: LEONOR MCKEON MD Normal [facility] EKGon 08-28-2020 Electrocardiogram Procedure Date and Time: 08/28/201931 Test Reason : STAT Blood Pressure : / mmHG Vent. Rate : 065 BPM Atrial Rate : 065 BPM P-R Int : 158 ms QRS Dur : 108 ms QT Int : 452 ms P-R-T Axes : -01 -36 047 degrees QTc Int : 470 ms Normal sinus rhythm with sinus arrhythmia Left axis deviation Abnormal ECG No previous ECGs available Confirmed by CELESTE COBIAN A. ([id number]) on 08/28/2020 10:44:22 PM Referred By: Emergency Rowan Adrian Confirmed By:Radha COBIAN M.D.FACC Clare DDandT: 08/28/201931 TDandT: [facility] PATIENT NAME: EMILY PERALTA Koki Segal MEDICAL REC #: [id number] [place] [address] ADMIT DATE: DISCHARGE DATE: ATTENDING PHY: Rowan Adrian,Emergency Physi ELECTROCARDIOGRAM REPORT CLB cc: [facility] PATIENT NAME: EMILY PERALTA [facility] MEDICAL REC #: [id number] [place] [address] ADMIT DATE: DISCHARGE DATE: ATTENDING PHY: Rowan Adrian,Emergency Physi ELECTROCARDIOGRAM REPORT Normal [facility] GFR ESTon 08-28-2020 IF AMER Greater than 60 Normal [facility] Comment on above: Order Comment: Campu s: M Performed By: #### L [id number], [id number] #### [facility] [address] [place] [address] IF non-AFR AMER Greater than 60 Normal [facility] Comment on above: Order Comment: Campu s: M Performed By: #### L [id number], [id number] #### [facility] [address] [place] [address] TROPONIN Ion 08-28-2020 TROPONIN I 3.1 pg/mL Normal 0-34 [facility] Comment on above: Order Comment: Campu s: M Result Comment: NOTE NEW NORMAL RANGE DUE TO REAGENT CHANGE This assay uses different antibodies than our current assay, and assays, even by the same geology faculty member may recognize different regions of the antibody and cannot be used interchangeably. Expect results of this assay to run higher than the previous assay. Performed By: #### L [id number] #### [facility] [address] [place] [address] Vital Signs Date Time Vital Sign Value Performing Clinician Facility 08-11-2024 12:27-0400 Body temperature 97.81 [degF] Ivanisabela Ann DO Work Phone: [facility] 08-11-2024 12:27-0400 Diastolic blood pressure 73 mm[Hg] millern Ann DO Work Phone: [facility] 08-11-2024 12:27-0400 Heart rate 85 /min LUVHANsandieisabela Ann DO Work Phone: [facility] 08-11-2024 12:27-0400 Respiratory rate 16 /min etelvina Ann DO Work Phone: [facility] 08-11-2024 12:27-0400 SaO2% (BldA) [Mass fraction] 92 % Stacia Juarez DO Work Phone: [facility] 08-11-2024 12:27-0400 Systolic blood pressure 117 mm[Hg] Stacia Juarez DO Work Phone: [facility] 08-06-2024 15:21-0400 Body height 152.4 cm Stacia Juarez DO Work Phone: [facility] 08-06-2024 15:21-0400 Body mass index (BMI) [Ratio] 42.97 kg/m2 Stacia Juarez DO Work Phone: [facility] 08-06-2024 15:21-0400 Body weight 99.79 kg Stacia Juarez DO Work Phone: [facility] 11-11-2023 11:15-0400 Body mass index (BMI) [Ratio] 38.47 kg/m2 Kalli De Anda APRN.CNP Work Phone: [facility] 11-11-2023 11:15-0400 Body temperature 97.81 [degF] Kalli De Anda APRN.MARINE DIESEL MECHANIC Work Phone: [facility] 11-11-2023 11:15-0400 Body weight 89.36 kg Kalli De Anda APRN.MARINE DIESEL MECHANIC Work Phone: [facility] Comment on above: 11/03/2023 11-11-2023 11:15-0400 Diastolic blood pressure 72 mm[Hg] Kalli De Anda APRN.MARINE DIESEL MECHANIC Work Phone: [facility] 11-11-2023 11:15-0400 Heart rate 68 /min Kalli De Anda APRN.MARINE DIESEL MECHANIC Work Phone: [facility] 11-11-2023 11:15-0400 Respiratory rate 18 /min Kalli De Anda APRN.MARINE DIESEL MECHANIC Work Phone: [facility] 11-11-2023 11:15-0400 SaO2% (BldA) [Mass fraction] 96 % Kalli De Anda APRN.MARINE DIESEL MECHANIC Work Phone: [facility] 11-11-2023 11:15-0400 Systolic blood pressure 126 mm[Hg] Kalli De Anda APRN.MARINE DIESEL MECHANIC Work Phone: [facility] 11-05-2023 14:23-0400 Body temperature 97.59 [degF] Kalli De Anda APRN.MARINE DIESEL MECHANIC Work Phone: [facility] 11-05-2023 14:23-0400 Diastolic blood pressure 67 mm[Hg] Kalli De Anda APRN.MARINE DIESEL MECHANIC Work Phone: [facility] 11-05-2023 14:23-0400 Heart rate 79 /min Kalli De Anda APRN.MARINE DIESEL MECHANIC Work Phone: [facility] 11-05-2023 14:23-0400 Respiratory rate 18 /min Kalli De Anda APRN.MARINE DIESEL MECHANIC Work Phone: [facility] 11-05-2023 14:23-0400 SaO2% (BldA) [Mass fraction] 95 % Kalli De Anda APRN.MARINE DIESEL MECHANIC Work Phone: [facility] 11-05-2023 14:23-0400 Systolic blood pressure 114 mm[Hg] Kalli De Anda APRN.MARINE DIESEL MECHANIC Work Phone: [facility] 11-03-2023 16:14-0400 Body mass index (BMI) [Ratio] 38.47 kg/m2 Kalli De Anda APRN.MARINE DIESEL MECHANIC Work Phone: [facility] 11-03-2023 16:14-0400 Body temperature 96.21 [degF] Kalli De Anda APRN.MARINE DIESEL MECHANIC Work Phone: [facility] 11-03-2023 16:14-0400 Body weight 89.36 kg Kalli De Anda APRN.MARINE DIESEL MECHANIC Work Phone: [facility] 11-03-2023 16:14-0400 Diastolic blood pressure 60 mm[Hg] Kalli Helbert CLINICAL FACULTY.MARINE D[employer]EL MECHANIC Work Phone: [facility] 11-03-2023 16:14-0400 Heart rate 73 /min Kalli Helbert CLINICAL FACULTY.MARINE DIESEL MECHANIC Work Phone: [facility] 11-03-2023 16:14-0400 Respiratory rate 18 /min Kalli De Anda CLINICAL FACULTY.MARINE DIESEL MECHANIC Work Phone: [facility] 11-03-2023 16:14-0400 SaO2% (BldA) [Mass fraction] 93 % Kalli Elizaldebert CLINICAL FACULTY.MARINE DIESEL MECHANIC Work Phone: [facility] 11-03-2023 16:14-0400 Systolic blood pressure 110 mm[Hg] Kalli Helbert CLINICAL FACULTY.MARINE DIESEL MECHANIC Work Phone: [facility] 10-29-2023 15:29-0400 Body temperature 97.39 [degF] Kalli De Anda CLINICAL FACULTY.MARINE DIESEL MECHANIC Work Phone: [facility] 10-29-2023 15:29-0400 Diastolic blood pressure 64 mm[Hg] Kalli Helbert CLINICAL FACULTY.MARINE DIESEL MECHANIC Work Phone: [facility] 10-29-2023 15:29-0400 Heart rate 75 /min Kalli Elizaldebert CLINICAL FACULTY.MARINE DIESEL MECHANIC Work Phone: [facility] 10-29-2023 15:29-0400 Respiratory rate 20 /min Kalli Elizaldebert CLINICAL FACULTY.MARINE DIESEL MECHANIC Work Phone: [facility] 10-29-2023 15:29-0400 SaO2% (BldA) [Mass fraction] 95 % Kalli Elizaldebert CLINICAL FACULTY.MARINE DIESEL MECHANIC Work Phone: [facility] 10-29-2023 15:29-0400 Systolic blood pressure 111 mm[Hg] Kalli Helbert CLINICAL FACULTY.MARINE DIESEL MECHANIC Work Phone: [facility] 10-27-2023 12:09-0400 Body mass index (BMI) [Ratio] 37.5 kg/m2 Kalli De Anda CLINICAL FACULTY.MARINE DIESEL MECHANIC Work Phone: [facility] 10-27-2023 12:09-0400 Body temperature 97.3 [degF] Kalli Helbert CLINICAL FACULTY.MARINE DIESEL MECHANIC Work Phone: [facility] 10-27-2023 12:09-0400 Body weight 87.09 kg Kalli De Anda CLINICAL FACULTY.MARINE DIESEL MECHANIC Work Phone: [facility] 10-27-2023 12:09-0400 Diastolic blood pressure 69 mm[Hg] Kalli Helbert CLINICAL FACULTY.MARINE DIESEL MECHANIC Work Phone: [facility] 10-27-2023 12:09-0400 Heart rate 79 /min Kalli Helbert CLINICAL FACULTY.MARINE DIESEL MECHANIC Work Phone: [facility] 10-27-2023 12:09-0400 Respiratory rate 16 /min Kalli Helbert CLINICAL FACULTY.MARINE DIESEL MECHANIC Work Phone: [facility] 10-27-2023 12:09-0400 SaO2% (BldA) [Mass fraction] 95 % Kalli Elizaldebert CLINICAL FACULTY.MARINE DIESEL MECHANIC Work Phone: [facility] 10-27-2023 12:09-0400 Systolic blood pressure 126 mm[Hg] Kalli Helbert CLINICAL FACULTY.MARINE DIESEL MECHANIC Work Phone: [facility] 10-16-2023 14:10-0400 Body temperature 97.59 [degF] Kalli Helbert CLINICAL FACULTY.MARINE DIESEL MECHANIC Work Phone: [facility] 10-16-2023 14:10-0400 Diastolic blood pressure 59 mm[Hg] Kalli Helbert CLINICAL FACULTY.MARINE DIESEL MECHANIC Work Phone: [facility] 10-16-2023 14:10-0400 Heart rate 73 /min Klali Helbert CLINICAL FACULTY.MARINE DIESEL MECHANIC Work Phone: [facility] 10-16-2023 14:10-0400 Respiratory rate 18 /min Kalli Helbert CLINICAL FACULTY.MARINE DIESEL MECHANIC Work Phone: [facility] 10-16-2023 14:10-0400 SaO2% (BldA) [Mass fraction] 92 % Kalli Helbert CLINICAL FACULTY.MARINE DIESEL MECHANIC Work Phone: [facility] 10-16-2023 14:10-0400 Systolic blood pressure 123 mm[Hg] Kalli De Anda APRN.MARINE DIESEL MECHANIC Work Phone: [facility] 10-14-2023 11:15-0400 Body mass index (BMI) [Ratio] 38.28 kg/m2 Kalli De Anda APRN.MARINE DIESEL MECHANIC Work Phone: [facility] 10-14-2023 11:15-0400 Body temperature 97.59 [degF] Kalli De Anda APRN.MARINE DIESEL MECHANIC Work Phone: [facility] 10-14-2023 11:15-0400 Body weight 88.91 kg Kalli De Anda APRN.MARINE DIESEL MECHANIC Work Phone: [facility] 10-14-2023 11:15-0400 Diastolic blood pressure 70 mm[Hg] Kalli De Anda APRN.MARINE DIESEL MECHANIC Work Phone: [facility] 10-14-2023 11:15-0400 Heart rate 72 /min Kalli De Anda APRN.MARINE DIESEL MECHANIC Work Phone: [facility] 10-14-2023 11:15-0400 Respiratory rate 18 /min Kalli De Anda APRN.MARINE DIESEL MECHANIC Work Phone: [facility] 10-14-2023 11:15-0400 SaO2% (BldA) [Mass fraction] 95 % Kalli De Anda APRN.MARINE DIESEL MECHANIC Work Phone: [facility] 10-14-2023 11:15-0400 Systolic blood pressure 120 mm[Hg] Kalli De Anda APRN.MARINE DIESEL MECHANIC Work Phone: [facility] 10-09-2023 15:00-0400 Body temperature 97.5 [degF] Kalli De Anda APRN.MARINE DIESEL MECHANIC Work Phone: [facility] 10-09-2023 15:00-0400 Diastolic blood pressure 68 mm[Hg] Kalli De Anda APRN.MARINE DIESEL MECHANIC Work Phone: [facility] 10-09-2023 15:00-0400 Heart rate 84 /min Kalli Helbert CLINICAL FACULTY.MARINE DIESEL MECHANIC Work Phone: [facility] 10-09-2023 15:00-0400 Respiratory rate 18 /min Kalli Helbert CLINICAL FACULTY.MARINE DIESEL MECHANIC Work Phone: [facility] 10-09-2023 15:00-0400 SaO2% (BldA) [Mass fraction] 93 % Kalli Helbert CLINICAL FACULTY.MARINE DIESEL MECHANIC Work Phone: [facility] 10-09-2023 15:00-0400 Systolic blood pressure 105 mm[Hg] Kalli Helbert CLINICAL FACULTY.MARINE DIESEL MECHANIC Work Phone: [facility] 10-07-2023 11:48-0400 Body temperature 97.81 [degF] Kalli Helbert CLINICAL FACULTY.MARINE DIESEL MECHANIC Work Phone: [facility] 10-07-2023 11:48-0400 Diastolic blood pressure 79 mm[Hg] Kalli Helbert CLINICAL FACULTY.MARINE DIESEL MECHANIC Work Phone: [facility] 10-07-2023 11:48-0400 Heart rate 90 /min Kalli Helbert CLINICAL FACULTY.MARINE DIESEL MECHANIC Work Phone: [facility] 10-07-2023 11:48-0400 Respiratory rate 18 /min Kalli Helbert CLINICAL FACULTY.MARINE DIESEL MECHANIC Work Phone: [facility] 10-07-2023 11:48-0400 SaO2% (BldA) [Mass fraction] 93 % Kalli Helbert CLINICAL FACULTY.MARINE DIESEL MECHANIC Work Phone: [facility] 10-07-2023 11:48-0400 Systolic blood pressure 133 mm[Hg] Kalli Helbert CLINICAL FACULTY.MARINE DIESEL MECHANIC Work Phone: [facility] 10-02-2023 11:02-0400 Body temperature 97.59 [degF] Kalli Helbert CLINICAL FACULTY.MARINE DIESEL MECHANIC Work Phone: [facility] 10-02-2023 11:02-0400 Diastolic blood pressure 97 mm[Hg] Kalli Helbert CLINICAL FACULTY.MARINE DIESEL MECHANIC Work Phone: [facility] 10-02-2023 11:02-0400 Heart rate 68 /min Kalli Helbert CLINICAL FACULTY.MARINE DIESEL MECHANIC Work Phone: [facility] 10-02-2023 11:02-0400 Respiratory rate 18 /min Kalli Helbert CLINICAL FACULTY.MARINE DIESEL MECHANIC Work Phone: [facility] 10-02-2023 11:02-0400 SaO2% (BldA) [Mass fraction] 94 % Kalli Helbert CLINICAL FACULTY.MARINE DIESEL MECHANIC Work Phone: [facility] 10-02-2023 11:02-0400 Systolic blood pressure 118 mm[Hg] Kalli Helbert CLINICAL FACULTY.MARINE DIESEL MECHANIC Work Phone: [facility] 09-30-2023 11:25-0400 Body temperature 97.5 [degF] Kalli Helbert CLINICAL FACULTY.MARINE DIESEL MECHANIC Work Phone: [facility] 09-30-2023 11:25-0400 Diastolic blood pressure 62 mm[Hg] Kalli Helbert CLINICAL FACULTY.MARINE DIESEL MECHANIC Work Phone: [facility] 09-30-2023 11:25-0400 Heart rate 64 /min Kalli Helbert CLINICAL FACULTY.MARINE DIESEL MECHANIC Work Phone: [facility] 09-30-2023 11:25-0400 Respiratory rate 18 /min Kalli Helbert CLINICAL FACULTY.MARINE DIESEL MECHANIC Work Phone: [facility] 09-30-2023 11:25-0400 SaO2% (BldA) [Mass fraction] 95 % Kalli Helbert CLINICAL FACULTY.MARINE DIESEL MECHANIC Work Phone: [facility] 09-30-2023 11:25-0400 Systolic blood pressure 123 mm[Hg] Kalli Helbert CLINICAL FACULTY.MARINE DIESEL MECHANIC Work Phone: [facility] 09-26-2023 23:10-0400 Body temperature 97.81 [degF] Kalli Helbert CLINICAL FACULTY.MARINE DIESEL MECHANIC Work Phone: [facility] 09-26-2023 23:10-0400 Diastolic blood pressure 52 mm[Hg] Kalli Helbert CLINICAL FACULTY.MARINE DIESEL MECHANIC Work Phone: [facility] 09-26-2023 23:10-0400 Heart rate 72 /min Kalli Helbert CLINICAL FACULTY.MARINE DIESEL MECHANIC Work Phone: [facility] 09-26-2023 23:10-0400 Respiratory rate 18 /min Kalli Helbert CLINICAL FACULTY.MARINE DIESEL MECHANIC Work Phone: [facility] 09-26-2023 23:10-0400 SaO2% (BldA) [Mass fraction] 92 % Kalli Helbert CLINICAL FACULTY.MARINE DIESEL MECHANIC Work Phone: [facility] 09-26-2023 23:10-0400 Systolic blood pressure 108 mm[Hg] Kalli Helbert CLINICAL FACULTY.MARINE DIESEL MECHANIC Work Phone: [facility] 09-23-2023 09:52-0400 Body temperature 97.7 [degF] Kalli Helbert CLINICAL FACULTY.MARINE DIESEL MECHANIC Work Phone: [facility] 09-23-2023 09:52-0400 Diastolic blood pressure 62 mm[Hg] Kalli Helbert CLINICAL FACULTY.MARINE DIESEL MECHANIC Work Phone: [facility] 09-23-2023 09:52-0400 Heart rate 86 /min Kalli Helbert CLINICAL FACULTY.MARINE DIESEL MECHANIC Work Phone: [facility] 09-23-2023 09:52-0400 Respiratory rate 18 /min Kalli Helbert CLINICAL FACULTY.MARINE DIESEL MECHANIC Work Phone: [facility] 09-23-2023 09:52-0400 SaO2% (BldA) [Mass fraction] 92 % Kalli Helbert CLINICAL FACULTY.MARINE DIESEL MECHANIC Work Phone: [facility] 09-23-2023 09:52-0400 Systolic blood pressure 121 mm[Hg] Kalli Helbert CLINICAL FACULTY.MARINE DIESEL MECHANIC Work Phone: [facility] 06-20-2023 14:45-0400 Body temperature 97.7 [degF] WAQAS GONZALEZ MD [facility] 04-12-2024 14:45-0400 Diastolic Blood Pressure Non-Invasive 64 mm[Hg] WAQAS GONZALEZ MD [address] [place] [address] 06-20-2023 14:45-0400 Heart rate 86 /min WAQAS GONZALEZ MD [address] [place] [address] 06-20-2023 14:45-0400 Reason For Taking VItal Signs WAQAS GONZALEZ MD [address] [place] [address] 06-20-2023 14:45-0400 Respiratory rate 18 /min WAQAS GONZALEZ MD [address] [place] [address] 06-20-2023 14:45-0400 Systolic Blood Pressure Non-Invasive 119 mm[Hg] WAQAS GONZALEZ MD [address] [place] [address] 06-20-2023 12:45-0400 Body temperature 97.88 [degF] WAQAS GONZALEZ MD [address] [place] [address] 06-20-2023 12:45-0400 Diastolic Blood Pressure Non-Invasive 66 mm[Hg] WAQAS GONZALEZ MD [address] [place] [address] 06-20-2023 12:45-0400 Heart rate 72 /min WAQAS GONZALEZ MD [address] [place] [address] 06-20-2023 12:45-0400 Reason For Taking VItal Signs WAQAS GONZALEZ MD [address] [place] [address] 06-20-2023 12:45-0400 Respiratory rate 18 /min WAQAS GONZALEZ MD [address] [place] [address] 06-20-2023 12:45-0400 Systolic Blood Pressure Non-Invasive 120 mm[Hg] WAQAS GONZALEZ MD [address] [place] [address] 06-20-2023 11:06-0400 Body temperature 98.24 [degF] WAQAS GONZALEZ MD [address] [place] [address] 06-20-2023 11:06-0400 Diastolic Blood Pressure Non-Invasive 67 mm[Hg] WAQAS GONZALEZ MD [address] [place] [address] 06-20-2023 11:06-0400 Heart rate 73 /min WAQAS GONZALEZ MD [address] [place] [address] 06-20-2023 11:06-0400 Reason For Taking VItal Signs WAQAS GONZALEZ MD [facility] 06-20-2023 11:06-0400 Respiratory rate 18 /min WAQAS GONZALEZ MD [address] [place] [address] 06-20-2023 11:06-0400 Systolic Blood Pressure Non-Invasive 124 mm[Hg] WAQAS GONZALEZ MD [address] [place] [address] 06-20-2023 07:13-0400 Heart rate 76 /min WAQAS GONZALEZ MD [address] [place] [address] 06-20-2023 06:27-0400 Blood Pressure Cuff Size WAQAS GONZALEZ MD [address] [place] [address] 06-20-2023 06:27-0400 Blood Pressure Location WAQAS GONZALEZ MD [address] [place] [address] 06-20-2023 06:27-0400 Blood Pressure Method WAQAS GONZALEZ MD [address] [place] [address] 06-20-2023 01:01-0400 Blood Pressure Cuff Size WAQAS GONZALEZ MD [address] [place] [address] 06-20-2023 01:01-0400 Blood Pressure Location WAQAS GONZALEZ MD [address] [place] [address] 06-20-2023 01:01-0400 Blood Pressure Method WAQAS GONZALEZ MD [address] [place] [address] 06-20-2023 01:01-0400 Heart rate 64 /min WAQAS GONZALEZ MD [address] [place] [address] 06-19-2023 08:02-0400 Heart rate 77 /min WAQAS GONZALEZ MD [address] 06-18-2023 23:05-0400 Blood Pressure Cuff Size WAQAS GONZALEZ MD [address] [place] [address] 06-18-2023 23:05-0400 Blood Pressure Location WAQAS GONZALEZ MD [facility] 06-18-2023 23:05-0400 Blood Pressure Method WAQAS GONZALEZ MD [facility] 06-18-2023 20:42-0400 Body height 154 cm WAQAS GONZALEZ MD [address] [place] [address] 06-18-2023 20:42-0400 Body weight 104.5 kg WAQAS GONZALEZ MD [facility] 06-18-2023 20:42-0400 Body weight 44.06 kg/m2 WAQAS GONZALEZ MD [address] [place] [address] 06-18-2023 10:02-0400 SaO2% (BldA) [Mass fraction] 92.9 % WAQAS GONZALEZ MD [facility] 06-18-2023 06:17-0400 Body weight 104.5 kg WAQAS GONZALEZ MD [facility] 02-16-2022 14:53-0500 Body temperature 98.06 [degF] DR NASRA MENEZES MD [address] [place] [address] 02-16-2022 14:53-0500 Diastolic Blood Pressure Non-Invasive [address] NASRA MENEZES MD [address] [place] [address] 02-16-2022 14:53-0500 Heart rate 81 /min DR NASRA MENEZES MD [address] [place] [address] 02-16-2022 14:53-0500 Respiratory rate 17 /min DR NASRA MENEZES MD [address] [place] [address] 02-16-2022 14:53-0500 Systolic Blood Pressure Non-Invasive [address] NASRA MENEZES MD [facility] 02-16-2022 14:38-0500 Heart rate 78 /min DR NASRA MENEZES MD [facility] 02-16-2022 14:38-0500 Respiratory rate 17 /min DR NASRA MENEZES MD [address] [place] [address] 02-16-2022 08:45-0500 Blood Pressure Cuff Size DR NASRA MENEZES MD [address] 02-16-2022 08:45-[address] NASRA MENEZES MD [address] [place] [address] 02-16-2022 08:45-[address] NASRA MENEZES MD [address] [place] [address] 02-16-2022 08:45-0500 Body temperature 97.52 [degF] DR NASRA MENEZES MD [address] [place] [address] 02-16-2022 08:45-0500 Diastolic Blood Pressure Non-Invasive [address] NASRA MENEZES MD [address] [place] [address] 02-16-2022 08:45-0500 Heart rate 67 /min DR NASRA MENEZES MD [address] [place] [address] 02-16-2022 08:45-0500 Reason For Taking VItal Signs DR NASRA MENEZES MD [address] [place] [address] 02-16-2022 08:45-0500 Respiratory rate 19 /min DR NASRA MENEZES MD [address] 02-16-2022 08:45-0500 Systolic Blood Pressure Non-Invasive [address] NASRA MENEZES MD [address] [place] [address] 02-16-2022 07:34-0500 Heart rate 62 /min DR NASRA MENEZES MD [address] [place] [address] 02-15-2022 21:40-0500 Diastolic Blood Pressure Non-Invasive [address] NASRA MENEZES MD [address] [place] [address] 02-15-2022 21:40-0500 Heart rate 84 /min DR NASRA MENEZES MD [address] [place] [address] 02-15-2022 21:40-0500 Systolic Blood Pressure Non-Invasive [address] NASRA MENEZES MD [facility] 02-15-2022 21:28-0500 Body temperature 98.06 [degF] DR NASRA MENEZES MD [facility] 02-14-2022 22:02-0500 Heart rate 61 /min DR NASRA MENEZES MD [address] [place] [address] 02-13-2022 15:35-0500 Reason For Taking VItal Signs DR NASRA MENEZES MD [address] [place] [address] 02-13-2022 07:49-0500 Reason For Taking VItal Signs DR NASRA MENEZES MD [facility] 02-12-2022 22:07-0500 Body height [address] NASRA MENEZES MD [facility] 02-12-2022 22:07-0500 Body weight 102.[address] NASRA MENEZES MD [facility] 02-12-2022 22:07-0500 Body weight 42.58 kg/m2 DR NASRA MENEZES MD [facility] 02-12-2022 11:16-0500 Body temperature 98.24 [degF] DR NASRA MENEZES MD [facility] 02-12-2022 11:16-0500 Body weight 102.[address] NASRA MENEZES MD [facility] Encounters Encounter Date Encounter Type Care Provider Facility Start: 08-13-2024 End: 08-13-2024 Telephone encounter Arnoldo Bustillos [facility] Resp Therapy Start: 08-03-2024 End: 08-11-2024 Evaluation and management of inpatient [facility] Comment on above: COPD exacerbation (H CC) (Primary Dx); Acute on chronic congestive heart failure, unspecified heart failure type (HCC); Acute hypoxic respiratory failure (HCC) Start: 04-17-2024 ambulatory Kaleb Deperro Sr. Facili ty:[facility] Start: 04-17-2024 End: 04-19-2024 Evaluation and management of inpatient Kaleb Deperro Sr. Facility:[facility] Start: 03-11-2024 ambulatory Kaleb Deperro OLS Facili ty:[facility] Start: 02-09-2024 End: 02-09-2024 ambulatory Kaleb Deperro OLS Facility:[facility] Start: 02-02-2024 End: 02-02-2024 ambulatory Kaleb Deperro OLS Facility:[facility] Start: 01-12-2024 End: 01-12-2024 ambulatory Kaleb Deperro OLS Facility:[facility] Start: 01-02-2024 End: 01-02-2024 ambulatory Kaleb Deperro OLS Facility:[facility] Start: 12-29-2023 End: 12-29-2023 ambulatory Kaleb Deperro OLS Facility:[facility] Start: 11-17-2023 ambulatory Kaleb Deperro OLS Facili ty:[facility] Start: 11-11-2023 End: 11-11-2023 ambulatory Kalli De Anda APRCLARISSA Work Phone: [facility] Comment on above: Acute pain of right shoulder (Primary Dx); Personal history of fall; Non-traumatic rhabdomyolysis; Hypertension, unspecified type; Chronic obstructive pulmonary disease, unspecified COPD type (HCC); Debility Start: 11-11-2023 End: 11-11-2023 Telemedicine consultation with patient Kalli De Anda APRNMONICA Work Phone: [facility] Start: 11-05-2023 End: 11-05-2023 ambulatory Kalli De Anda APRCLARISSA Work Phone: [facility] Comment on above: Acute pain of right shoulder (Primary Dx); Personal history of fall; Non-traumatic rhabdomyolysis; Hypertension, unspecified type; Chronic obstructive pulmonary disease, unspecified COPD type (HCC); Debility; Dysuria Start: 11-05-2023 End: 11-05-2023 Telemedicine consultation with patient Kalli De Anda APRN.[employer] Work Phone: [facility] Start: 11-03-2023 End: 11-03-2023 ambulatory Kalli De Anda APRN.[employer] Work Phone: [facility] Comment on above: Acute pain of right shoulder (Primary Dx); Personal history of fall; Non-traumatic rhabdomyolysis; Hypertension, unspecified type; Chronic obstructive pulmonary disease, unspecified COPD type (HCC); Debility Start: 11-03-2023 End: 11-03-2023 Telemedicine consultation with patient Kalli De Anda APRN.[employer] Work Phone: [facility] Start: 10-29-2023 End: 10-29-2023 ambulatory Kalli De Anda APRN.[employer] Work Phone: [facility] Comment on above: Acute pain of right shoulder (Primary Dx); Personal history of fall; Non-traumatic rhabdomyolysis; Hypertension, unspecified type; Chronic obstructive pulmonary disease, unspecified COPD type (HCC); Debility; Dysuria Start: 10-29-2023 End: 10-29-2023 Telemedicine consultation with patient Kalli De Anda APRN.[employer] Work Phone: [facility] Start: 10-27-2023 End: 10-27-2023 ambulatory Kalli De Anda APRN.[employer] Work Phone: [facility] Comment on above: Non-traumatic rhabdo myolysis (Primary Dx); Acute pain of right shoulder; Personal history of fall; Hypertension, unspecified type; Chronic obstructive pulmonary disease, unspecified COPD type (HCC); Debility; Abnormal finding on urinalysis; Other specified hypothyroidism Start: 10-27-2023 End: 10-27-2023 Telemedicine consultation with patient Kalli De Anda APRN.[employer] Work Phone: [facility] Start: 10-21-2023 End: 10-24-2023 Evaluation and management of inpatient EMILY Paul BIBIANA Facility:[id number] Start: 10-16-2023 ambulatory Kalli Helber t CLINICAL FACULTY.[employer] Work Phone: [facility] Comment on above: Urinary tract infect ion with hematuria, site unspecified (Primary Dx); Haemophilus influenzae infection; Hypertension, unspecified type; Other specified hypothyroidism; Acute hypoxic respiratory failure (HCC); Hypokalemia; Debility Start: 10-16-2023 Telemedicine consult ation with patient Kalli De Anda APRN.[employer] Work Phone: [facility] Start: 10-14-2023 ambulatory Kalli Fideber t CLINICAL FACULTY.[employer] Work Phone: [facility] Comment on above: Urinary tract infect ion with hematuria, site unspecified (Primary Dx); Haemophilus influenzae infection; Hypertension, unspecified type; Other specified hypothyroidism; Acute hypoxic respiratory failure (HCC); Hypokalemia; Debility Start: 10-14-2023 Telemedicine consult ation with patient Kalli De Anda APRN.[employer] Work Phone: [facility] Start: 10-09-2023 ambulatory Kalli Fideber t CLINICAL FACULTY.[employer] Work Phone: [facility] Comment on above: Urinary tract infect ion with hematuria, site unspecified (Primary Dx); Haemophilus influenzae infection; Hypertension, unspecified type; Other specified hypothyroidism; Acute hypoxic respiratory failure (HCC); Debility Start: 10-09-2023 Telemedicine consult ation with patient Kalli De Anda APRN.[employer] Work Phone: [facility] Start: 10-07-2023 ambulatory Kalli Fideber t CLINICAL FACULTY.[employer] Work Phone: [facility] Comment on above: Urinary tract infect ion with hematuria, site unspecified (Primary Dx); Haemophilus influenzae infection; Hypertension, unspecified type; Other specified hypothyroidism; Acute hypoxic respiratory failure (HCC); Debility Start: 10-07-2023 Telemedicine consult ation with patient Kalli De Anda APRN.[employer] Work Phone: [facility] Start: 10-02-2023 ambulatory Kalli Helber t CLINICAL FACULTY.[employer] Work Phone: [facility] Comment on above: Urinary tract infect ion with hematuria, site unspecified (Primary Dx); Haemophilus influenzae infection; Hypertension, unspecified type; Other specified hypothyroidism; Acute hypoxic respiratory failure (HCC); Debility; OAB (overactive bladder) Start: 10-02-2023 Telemedicine consult ation with patient Kalli De Anda APRN.[employer] Work Phone: [facility] Start: 09-30-2023 ambulatory Kalli vigil APRN.[employer] Work Phone: [facility] Comment on above: Urinary tract infect ion with hematuria, site unspecified (Primary Dx); Haemophilus influenzae infection; Hypertension, unspecified type; Other specified hypothyroidism; Acute hypoxic respiratory failure (HCC); Debility Start: 09-30-2023 Telemedicine consult ation with patient Kalli De Anda APRN.[employer] Work Phone: [facility] Start: 09-26-2023 ambulatory Kalli vigil APRN.[employer] Work Phone: [facility] Comment on above: Urinary tract infect ion with hematuria, site unspecified (Primary Dx); Hypertension, unspecified type; Other specified hypothyroidism; Acute hypoxic respiratory failure (HCC); Debility Start: 09-26-2023 Telemedicine consult ation with patient Kalli De Anda APRN.[employer] Work Phone: [facility] Start: 09-23-2023 ambulatory Kalli viigl APRN.[employer] Work Phone: [facility] Comment on above: Urinary tract infect ion with hematuria, site unspecified (Primary Dx); Hypertension, unspecified type; Other specified hypothyroidism; Acute hypoxic respiratory failure (HCC); Debility; OAB (overactive bladder) Start: 09-23-2023 Telemedicine consult ation with patient Kalli De Anda APRN.[employer] Work Phone: [facility] Start: 09-13-2023 End: 09-23-2023 Evaluation and management of inpatient EMILY MCCARTY Facility:[id number] Start: 09-03-2023 End: 09-03-[address] EMILY MCCARTY MD Facility:A Start: 08-01-2023 End: 08-05-[address] EMILY MCCARTY MD Facility:A Start: 06-18-2023 End: 06-20-2023 Evaluation and management of inpatient WAQAS GONZALEZ MD [facility] Start: 06-09-[address] EMILY MCCARTY MD F acility:A Start: 05-23-2023 End: 05-23-[address] EMILY MCCARTY MD Facility:A Start: 02-03-2023 End: 02-07-[address] EMILY MCCARTY MD Facility:[facility] Start: 12-31-2022 End: 12-31-2022 Emergency department patient visit EMILY MCCARTY Facility:[id number] Start: 11-01-[address] EMILY MCCARTY MD F acility:A Start: 04-08-2022 End: 04-08-2022 Patient encounter procedure NASIR KNUTSON [facility]Y-[employer] [facility] Start: 02-12-2022 End: 02-16-2022 Evaluation and management of inpatient DR NASRA MENEZES MD [facility] Start: 01-16-[address] Ari delgado [place] Facility:[id number] Start: 01-22-2021 End: 01-22-2021 Patient encounter procedure MARNI Gavi MALI [facility]Y-[employer] [facility] Start: 01-21-2018 Patient encounter procedure Angelo Malloryrepublicshelby Facility:[id number] Start: 12-22-2017 Patient encounter procedure Angelo [facility] Facility:[id number] Procedures Date Procedure Procedure Detail Performing Clinician Start: 08-11-2024 Basic metabolic pane l calcium total Helen Wan DO Work Phone: Start: 08-10-2024 Comprehensive metabo lic panel Tate Givens MD Work Phone: Start: 08-09-2024 OXYGEN THERAPY Tate Givens MD Work Phone: Start: 08-09-2024 OXYGEN THERAPY Tate Givens MD Work Phone: Start: 08-09-2024 Comprehensive metabo lic panel Tate Givens MD Work Phone: Start: 08-08-2024 OXYGEN THERAPY Tate Givens MD Work Phone: Start: 08-08-2024 OXYGEN THERAPY Tate Givens MD Work Phone: Start: 08-08-2024 Comprehensive metabo lic panel Tate Givens MD Work Phone: Start: 08-07-2024 OXYGEN THERAPY Tate Givens MD Work Phone: Start: 08-07-2024 OXYGEN THERAPY Tate Givens MD Work Phone: Start: 08-07-2024 Comprehensive metabo lic panel Tate Givens MD Work Phone: Start: 08-06-2024 OXYGEN THERAPY Tate Givens MD Work Phone: Start: 08-06-2024 Echo tthrc r-t 2d w/ wom-mode compl spec&colr d Fawn Dover [facility] - [employer] Work Phone: Start: 08-06-2024 Radiologic exam ches t single view Artur Neri MD Work Phone: Start: 08-06-2024 Comprehensive metabo lic panel Tate Givens MD Work Phone: Start: 08-05-2024 OXYGEN THERAPY Tate Givens MD Work Phone: Start: 08-05-2024 OXYGEN THERAPY Tate Givens MD Work Phone: Start: 08-04-2024 OXYGEN THERAPY Tate Givens MD Work Phone: Start: 08-04-2024 OXYGEN THERAPY Tate Givens MD Work Phone: Start: 08-04-2024 Blood gases any comb ination ph pco2 po2 co2 hco3 Artur Neri MD Work Phone: Start: 08-04-2024 Respiratory pathogen s DNA and RNA panel - Lower respiratory specimen by LYDIA with non-probe detection Fawn Dover [facility]Y - [employer] Work Phone: Start: 08-04-2024 Smr prim src gram/gi emsa stain bct fungi/cell Fawn Dover [facility]Y - [employer] Work Phone: Start: 08-04-2024 Iaadiadoo not otherw ise specified Fawn Dover [facility]Y - [employer] Work Phone: Start: 08-04-2024 LEGIONELLA AND STREP TOCOCCUS URINE ANTIGEN, ORDERABLE Fawn Dover [facility] - [employer] Work Phone: Start: 08-04-2024 URINE HOLD CUP Fawn Mcintosh CLINICAL FACULTY - [employer] Work Phone: Start: 08-04-2024 Respiratory pathogen s DNA and RNA panel - Nasopharynx by LYDIA with non-probe detection Fawn Dover [facility] - [employer] Work Phone: Start: 08-03-2024 OXYGEN THERAPY Fransisco willingham MD Work Phone: Start: 08-03-2024 Assay of troponin quantitative Stacia De La Vega Ann DO Work Phone: Start: 08-03-2024 OXYGEN THERAPY Fransisco willingham MD Work Phone: Start: 08-03-2024 Radiologic exam ches t single view Ivanisabela Yolette Ann DO Work Phone: Start: 08-03-2024 Ecg routine ecg w/le ast 12 lds trcg only w/o i&r Mejgon Yolette Ann DO Work Phone: Start: 08-03-2024 Comprehensive metabo lic panel jgon Yolette Ann DO Work Phone: Start: 08-03-2024 Manual Differential panel - Blood Ivanisabela Yolette Ann DO Work Phone: Start: 12-31-2022 Antibody screen MUKUND MCCARTY Comment on above: Order Comment: Speci men Type: BLOOD SPECIMENOrdering Facility: [facility] Address: [address] [place] [address] [place] [address] Performed By: #### L [id number], TSCR ####[facility] BLO[facility]ANKIA [id number] [place] [id number] [facility] Start: 07-04-2022 Echocardiography WAQAS GONZALEZ MD Comment on above: Summary: 1. Left ventricle: The cavity size is normal. Wall thickness is increased. Systolic function is normal. The estimated ejection fraction is 60-65%. Wall motion is normal; there are no regional wall motion abnormalities. Grade I diastolic dysfunction. 2. Ventricular septum: Thickness is increased. 3. Aortic valve: Thickening, consistent with sclerosis. There is mild regurgitation. The mean systolic gradient is 11 mm Hg. The valve area by VTI is 2.0 cm . 4. Left atrium: The atrium is mildly dilated. 5. Right ventricle: The RV systolic pressure by Doppler is 32 mm Hg. 6. Right atrium: The estimated right atrial pressure is 3 mm Hg. Start: 08-28-2020 Ecg routine ecg w/le ast 12 lds i&r only Start: 01-21-2018 Endoscopy of upper gastrointestinal tract and dilation of esophageal stricture MARNI SILVERHMAN [facility] Start: 03-10-2015 Dental MARNI Miguel [facility]A [facility] Start: 03-10-2013 Total knee replacement MARNI MALI [facility] [employer] Start: 03-10-2000 Decompression of med rufina nerve MARNI MALI [facility] Start: 03-10-1989 Decompression of med rufina nerve MARNI MALI [facility] Start: 03-10-1964 Dilation and curetta ge of uterus MARNI SAMSON [facility] Start: 03-10-1944 Tonsil and adenoid s tructure (body structure) MARNI SAMSON [facility] Arthroplasty of shoulder KELSEY SAMSON [facility] [employer] Arthroscopy of knee MARNI SAMSON [facility] [employer] Cholecystectomy MARNI JACKSON CL[facility]ICAL [facility]AC[facility]Y-[employer] Extraction of cataract RICCARDO SAMSON CLINICAL FACULTY-[employer] H/O: hysterectomy MARNI MILLER CLINICAL [facility]ACULTY-[employer] History of lumbar fusion KELSEY SAMSON [facility]ICAL [facility]Y-[employer] History of total rep lacement of right hip joint MARNI SAMSON CLINICAL [facility]ACULTY-[employer] Neuroplasty &/transp os median nrv carpal tunne MARNI SAMSON [facility]ICAL [facility]AC[facility]Y-[employer] Spinal arthrodesis MARNI SAMSON [facility]ICAL [facility]ULTY-[employer] Plan of Treatment Date Care Activity Detail Author Start: 10-23-2026 Diabetes Screening Diabetes Screening [facility] Start: 09-20-2026 Diabetes Screening Diabetes Screening [facility] Start: 08-11-2025 Creatinine measurement Creatinine Level [facility] Start: 08-11-2025 Potassium measurement Potassium Level [facility] Start: 08-06-2025 Echocardiography Echocardiogram [facility] Start: 09-01-2024 End: 09-01-2024 Patient encounter procedure 09/01/2024 9:30 AM EDT Office Visit [facility] Pulmonary count includes the [facility] Sleep [facility] [address] [place] [address] Paulette Gracia NP [address] [place] [address] [facility] Pulmonary count includes the [facility] Sleep Medicine [facility] Start: 03-10-2024 Medicare Advantage Annual Wellness Visit Medicare Advantage Annual Wellness Visit [facility] Start: 11-09-2023 Covid-19 Vaccine ( season) Covid-19 Vaccine ( season) [facility] Start: 11-09-2023 COVID-19 Vaccine ( season) COVID-19 Vaccine () [facility] Start: 11-09-2023 Influenza vaccination Influenza Vaccine (#1) [facility] Start: 03-10-2023 Advance Directive Discussion Advance Directive Discussion [facility] Start: 03-10-2023 Behavioral Health Screening Behavioral Health Screening [facility] Start: 11-08-2022 Covid-19 Vaccine ( season) Covid-19 Vaccine ( season) [facility] Start: 03-22-2021 Shingrix Vaccine (2 of 2) Shingrix Vaccine (2 of 2) [facility] Start: 03-22-2021 Zoster Vaccines (2 of 2) Zoster Vaccines (2 of 2) [facility] Start: 2013 RSV Immunization for Adults (1 - 1-dose 75+ series) RSV Immunization for Adults (1 - 1-dose 75+ series) [facility] Start: 11-19-2003 Screening for osteoporosis Bone Density Screening [facility] Start: 1998 RSV Vaccine (1 - 1-dose 60+ series) RSV Vaccine (1 - 1-dose 60+ series) [facility] Start: 1957 DTaP/Tdap/Td Vaccines (1 - Tdap) DTaP/Tdap/Td Vaccines (1 - Tdap) [facility] Start: 1957 Urine microalbumin profile DTaP,Tdap,Td Vaccine (1 - Tdap) [facility] Start: 1956 Anxiety Screening Anxiety Screening [facility] Start: 1956 Depression Screening Depression Screening [facility] Start: 1950 Depression Monitoring Depression Monitoring [facility] Start: 1938 Lipid panel Lipid Panel [facility] Start: 1938 Screening for osteoporosis Bone Density Scan [facility] Start: 1938 Thyroid stimulating hormone measurement TSH Level [facility] Immunizations Immunization Date Immunization Notes Care Provider Fa cili 02-26-2023 influenza, high dose seasonal, preservative-free; Translations: [Fluad Quadrivalent PF ] WAQAS GONZALEZ MD [facility] Comment on above: Result Comment: veri fied by Shira Barnes LPN 02-26-2023 influenza virus vacc ine, unspecified formulation Kalli De Anda APRN.CNP Work Phone: [facility] 01-23-2022 influenza, high dose seasonal, preservative-free DR NASRA MENEZES MD [facility] 02-28-2021 SARS-CoV-2 (COVID-19 ) mRNA-[address] NASRA MENEZES MD [facility] 01-25-[address] NASRA MENEZES MD [facility] 12-11-2020 influenza, injectabl e, quadrivalent, contains preservative; Translations: [Fluad Quadrivalent PF ] MARNI SAMSON [facility] 07-04-2020 SARS-CoV-2 (COVID-19 ) mRNA-1273 vaccine MARNI SAMSON [facility] Comment on above: Result Comment: 2nd dose 06-01-2020 SARS-CoV-2 (COVID-19 ) mRNA-1273 vaccine MARNI SAMSON [facility] Comment on above: Result Comment: 1st dose 01-13-2020 Influenza vaccine, quadrivalent, adjuvanted; Translations: [Fluad Quadrivalent adjuvanted] MARNI SAMSON [facility] 01-06-2019 Influenza, injectabl e, Madin [place] Canine Kidney, preservative free, quadrivalent; Translations: [Flucelvax PF Quadrivalent ] MARNI SAMSON [facility] 12-07-2018 pneumococcal conjuga te vaccine, 13 valent; Translations: [Prevnar 13] MARNI SAMSON [facility] 11-25-2005 pneumococcal polysaccharide vaccine, 23 valent MARNI SAMSON APRN-[employer] [facility] Payers Date Payer Category Payer Medicare O [facility] AARP MEDICAR E ADVANTAGE [id number] 2023 Self-pay 2023 Unknown [id number] 2023 Medicare [id number] 2023 Medicaid [facility] MEDICAID MYC ARE [facility] MEDICAID [id number] 2023-Present [phone] [address] [place] [address] Medicaid [id number] 2023 Medicare [facility] AARP MEDICAR E [facility] AARP MEDICARE HMO [id number] 2023-Present [phone] [address] [address] [place] [address] HMO [id number] 2016 Private Health Insurance [id number] 1938 Unknown [id number] 2.16.840.1.104863.3.579. 2.356 1938 Unknown [id number] 2.16.840.1.220338.3.579. 2.356 1938 Unknown [id number] 2.16.840.1.952061.3.579. 2.627 1938 Unknown [id number] 2..840.1.322856.3.579. 2.62 1938 Unknown [id number] 2.16.840.1.808844.3.579. 2.62 1938 Unknown [id number] 2.16.840.1.352555.3.579. 2.62 1938 Unknown [id number] 2.840.1.597692.3.579. 2.62 1938 Unknown [id number] 2.840.1.570107.3.579. 2.62 1938 Unknown [id number] 2.840.1.606350.3.579. 2.62 1938 Unknown [id number] 2.840.1.736723.3.579. 2.1069 Private Health Insurance [facility] [id number] Unknown [id number] Unknown [id number] 2.840.1.182625.3.579. 2.462 Unknown [id number] 2.840.1.051693.3.579. 2.462 Unknown [id number] 2.840.1.854257.3.579. 2.462 Unknown [id number] 2.840.1.767059.3.579. 2.462 Unknown [id number] 2.840.1.363809.3.579. 2.462 Unknown [id number] 2.840.1.520837.3.579. 2.462 Unknown [id number] 2.840.1.433074.3.579. 2.462 Unknown [id number] 2.840.1.379849.3.579. 2.462 Unknown [id number] 2.16840.1.583151.3.579. 2.462 Unknown [id number] Unknown [id number] Social History Date Type Detail Facility Tobacco Tobacco Use: For mellisa smoker- quit 1960. Type: Cigarettes. [facility] Sex Assigned At Female [facility] Tobacco smoking status No Smokin g Status Entered [facility] Tobacco smoking stat us NHIS Tobacco smoking consumption unknown [facility] Start: 09-15-2023 End: 08-04-2024 History of Social function [facility] Start: 09-15-2023 End: 08-04-2024 [facility] Utilities [facility] Has the [employer], or water [employer] threatened to shut off services in your home in past 12Mo No [facility] (I/We) worried miguel er (my/our) food would run out before (I/we) got money to buy more. Never true [facility] In the past 12 month s, has lack of transportation kept you from medical appointments or from getting medications? No [facility] Start: 1940 Sex Assigned At Not on file [facility] Start: 08-04-2024 Tobacco smoking status NHIS Never smoked tobacco [facility] Start: 08-04-2024 Tobacco use and exposure Smokeless tobacco non-user [facility] How often to you hav e a drink containing alcohol? Never [facility] How hard is it for y ou to pay for the very basics like food, housing, medical care, and heating Not very hard [facility] Do you feel stress - tense, restless, nervous, or anxious, or unable to sleep at night because your mind is troubled all the time - these days [OSQ] Only a little [facility] Start: 10-08-2021 Sex Female (finding) [facility] Functional Status Date Assessment Result Facility 08-04-2024 Total score [AUDIT-C] 0 08/05/19 25 5:13 AM Genaro Bryan RN [facility] 06-20-2023 Functional Status Repositions se lf, Encouraged/reinforced importance of turning [facility] 06-20-2023 Functional Status Room check performed [facility] 06-20-2023 Functional Status Mod I [facility] 06-20-2023 Functional Status [facility] 06-20-2023 Functional Status [facility] 06-20-2023 Functional Status [facility] 06-19-2023 Functional Status [facility] 06-19-2023 Functional Status Pt wanting to get aide to come into her home and assist her around the house. Pt reports that she was looking into [facility] but cannot afford it. [facility] 06-19-2023 Functional Status Multilevel home [facility] 06-19-2023 Functional Status Breakfast Percent 100 A [facility] 06-18-2023 [facility] Functional Status Sensory Deficits None [facility] 02-16-2022 Functional Status bilateral knee high [facility] 02-16-2022 Functional Status Room check performed [facility] 02-16-2022 Functional Status [facility] 02-16-2022 Functional Status [facility] 02-15-2022 Functional Status [facility] 02-15-2022 Functional Status 25 [facility] 02-15-2022 Functional Status [facility] 02-15-2022 Functional Status Pt wanting to get aide to come into her home and assist her around the house. Pt reports that she was looking into [facility] but cannot afford it. [facility] 02-14-2022 Functional Status [facility] 02-13-2022 Functional Status [facility] 02-13-2022 Functional Status Assistive Device Cane [facility] [place] Mental Status Date Assessment Result Facility 06-20-2023 Mental Status Orientation Oriented x 4 [facility] 06-20-2023 Mental Status Orientation Assessment Orie nted x 4 [facility] 06-20-2023 Mental Status [facility] 06-20-2023 Mental Status [facility] 02-16-2022 Mental Status Orientation Oriented x 4 [facility] 02-16-2022 Mental Status [facility] 02-15-2022 Mental Status [facility] 02-15-2022 Mental Status [facility] Clinical Notes 08-29-2020 to 08-13-2024 Telephone Encounter - Arnoldo Bustillos RCP - 08/13/2024 2:18 PM EDTTelephone Encounter - Arnoldo Bustillos RCP - 08/13/2024 2:18 PM Skyler Matta RN - 08/11/2024 5:13 PM EDTDischarge Instr - MALATHI Note Date & Type Note Facility 08-13-2024 Telephone encounter Note COPD Navigator Note Called patient on home phone. No answer. Left Voicemail. [facility] 08-13-2024 Miscellaneous Notes COPD Navigator Note Called patient on home phone. No answer. Left Voicemail. documented in this encounter [facility] 08-11-2024 Nurse Note Patient sent with belongings with transport to facility at this time. [facility] 08-11-2024 Nurse Note Patient sent with belongings with transport to [facility] at this time. [facility] RN familiar with patient. Waiting on transport. Patient informed PO steroids were changed back to IV steroids. Patient continues to refuse steroids due to feeling restless and irritable. RN at bedside to administer PO Prednisone. Patient adamantly refusing to take steroids because they make her restless and irritable. Patient requesting more hydroxyzine because she already feels restless and irritable. RN informed patient of next available time for hydroxyzine to be administered. Dr. Givens notified and RN requested increase in hydroxyzine per patient request. Images from the original note were not included. Wound Care consulted for Pressure Injury Prevention. Pt's Emile score= 15 on 08/04 Pt's pressure points assessed. Pt sitting in chair upon arrival for visit. Pt's Heels, Back, Elbows, Occiput and ears all intact. Pt stood with max assist from ribbon sweatband operator for posterior assessment. Blanchable erythema/purple tissues noted to bilateral buttocks. DTI noted to right buttock, linear area of nonblanchable purple tissues, measures 1cm x 0.3cm, with surrounding blanchable erythema and purple tissues. See photo below. Wound MUSHROOM CULTIVATOR group consulted. Brief in place. Pt incontinent of urine and stool. Brief removed, incontinence care provided, barrier ointment applied. Pt refused any preventative foam dressings at this time. Instructed pt on pressure injury prevention and importance of turning/postioning every 2hrs while in bed and every 15 min while sitting in chair. Instructed on use and care of waffle chair cushion. Verbalized understanding. Prevention Measures in place, including: [place] sheet with pillows/wedges, Heels elevated off bed on pillows, Zinc/Moisture Barrier ointment (applied), Waffle chair cushion (ordered for pt). Skin Care precaution order set in place. Dietitian consult order placed d/t wound. PT consult in place. D/W nursing staff. Right buttock Will continue to follow pt. Please secure chat for any questions or concerns. Mago Cavazos RN documented in this encounter [facility] 08-11-2024 Nurse Note Report called to facility [facility], hallway 100. RN familiar with patient. Waiting on transport. [facility] 08-11-2024 History of Present illness Narrative Images from the original note were not included. PHYSICAL THERAPY [facility] Treatment Note Name/MRN: Emily Peralta ([id number]) Date of : 1940 Age: 83 y.o. [facility] A Visit #: 5 out of 8 Discharge Recommendation: [facility] Facility Equipment Needed: No Assessment Pt continues to make good overall progress towards established therapy goals this date. Remains limited by SOB and fatigue. Pt completed STS transfers with fww at [facility], Gait training with fww completed at [facility]. Pt tolerated all activity well and gave good overall effort. Vitals noted WNLs on 2L O2 via NC. Pt will continue to benefit from skilled therapy services during acute medical stay to improve upon presenting deficits prior to discharge to SNF. Subjective Pt pleasant and agreeable to PT session. RN cleared pt for session. Pain: Pt denies any current pain. Medical Precautions: No active isolations Proper PPE donned/doffed in accordance with facility standards. Fall Risk: Sotomayor Fall Risk Score: 85 (Low Risk) Sotomayor Fall Risk Score: 85 (High Risk) Precautions/Restrictions: Lines/Drains/Airways: 2L HFNC Fall Precautions Overall Cognitive Status: WFL Overall Orientation Status: Oriented to Person Family/Caregiver Present: none Objective Bed Mobility Pt up in chair upon arrival Transfers/Mobility Sit to stand: Contact Guard Stand to sit: Contact Guard CGAx1 for STS x2 from bedside recliner with fww. Cues for body mechanics, sequencing, activity pacing and transfer surface approximation. Increased time needed to complete. No LOB. Device(s) used: Front wheeled walker Ambulation Ambulation 1 Assistive device(s) used: Front wheeled walker Assist level: SBA, Contact Guard Distance (ft): 40ft x1 Quality of gait: No LOB, reciprocal stepping, B foot clearance, shuffling, narrow TSERING, slow moses Pt completed gait training with fww at [facility] progressing to SBAx1. Cues for proper foot clearance, activity pacing and device management. No overt LOB. Limited d/t mild SOB. SpO2 92-96% throughout. Good overall return of cues noted. Plan Continue acute PT per plan of care. Safety/Education Safety Safety Devices in place: All fall risk precautions in place, call light within reach, left in chair, gait belt, patient at risk for falls, nurse notified, and no alarms engaged upon entry Restraints: N/A Education Education Given To: patient Education Provided: PT Role, PT Goals, Gait Training, Plan of Care, Transfer Training, Energy Conservation, IADL Safety, Equipment, Fall Prevention Education, Discharge Recommendations, and Benefits of Increasing Activity Education Method: Verbal, Demonstration, and Teach Back Barriers to Learning: None Education Outcome: Verbalized Understanding, Demonstrated Understanding, and Continued Education Needed Outcome Measures AM-PAC AM-PAC Inpatient Mobility Raw Score (No Stairs) : 15 JH-HLM -M Score: Walked 25 ft or more (i.e. walked outside of room) Goals Patient Stated Goal: none stated Encounter Problems Encounter Problems (Active) Balance Patient will maintain dynamic standing balance for 3-5 minutes with SBA in order to demonstrate decreased risk of falling. (Progressing) Start: 08/04/24 Expected End: 08/14/24 Exercise Patient will complete lower extremity exercises for 1-2 sets / 5-10 reps in order to improve strength and activity tolerance for mobility. (Not Addressed) Start: 08/04/24 Expected End: 08/14/24 Mobility Patient will ambulate 15 feet with SBA and rolling walker in order to improve safety and independence with mobility. (Completed) Start: 08/04/24 Expected End: 08/11/24 Resolved: 08/10/24 Updated to: Patient will ambulate 50 feet with SBA and rolling walker in order to improve safety and independence with mobility. Update reason: pt progress Patient will ambulate 50 feet with SBA and rolling walker in order to improve safety and independence with mobility. (Progressing) Start: 08/10/24 Expected End: 08/14/24 Transfers Patient will perform bed mobility with modified independence in order to improve independence and prepare for out of bed mobility. (Not Addressed) Start: 08/04/24 Expected End: 08/14/24 Patient will complete functional transfer with rolling walker with CGA in order to prepare for ambulation. (Completed) Start: 08/04/24 Expected End: 08/11/24 Resolved: 08/10/24 Updated to: Patient will complete functional transfer with rolling walker with mod I in order to prepare for ambulation. Update reason: pt progress Patient will complete functional transfer with rolling walker with mod I in order to prepare for ambulation. (Progressing) Start: 08/10/24 Expected End: 08/14/24 Therapy Time Individual Co-treatment Time In 1354 Time Out 1405 Minutes 11 Timed Code Treatment Minutes: 10 Minutes (gait x1) Chuck Ruvalcaba PT Images from the original note were not included. [facility] Pulmonary Medicine [address] [place], [place] [id number] Patient - Emily Peralta, Age - 83 y.o. - 1940 Room Number - B2-255/B2-255 A Consulting - Helen Wan DO Primary Care Physician - No primary care provider on file[id number] Date of Admission - 08/03/2024 4:21 PM Hospital Day - 8 Chief Complaint: shortness of breath Emily Peralta is a 83 y.o. female who pulmonary is following for acute on chronic hypoxemic respiratory failure, CAP Interval History Awake and alert sitting on the chair currently on 2 L a cannula Oxygen saturation 92-96 percentile Patient feels better She is claustrophobic cannot use any PAP therapy All other systems reviewed and negative unless otherwise stated in HPI. Objective Vitals: BP 123/78 (BP Location: Right arm, Patient Position: Sitting) Pulse 88 Temp 36.8 C (98.2 F) (Temporal) Resp 20 Ht 5' (1.524 m) Wt 220 lb (99.8 kg) SpO2 93% BMI 42.97 kg/m Pulse Ox: SpO2 Av.7 % Min: 93 % Max: 95 % Supplemental O2: O2 Flow Rate (L/min): 2 L/min I/O 24HR INTAKE/OUTPUT: No intake or output data in the 24 hours ending 08/11/24 0913 Exam General appearance: Awake and alert intermittently cannula saturation 92 to 96% HEENT: Normocephalic, atraumatic. No scleral icterus, no right/left eye discharge. Conjunctivae normal. Pupils equal round and reactive to light. Right external ear normal, Left external ear normal. No congestion. Mouth: mucous membranes moist. Pharynx, Oropharynx is clear. No oropharyngeal exudate. Neck: ROM normal, No thyromegaly. No cervical lymphadenopathy Cardiovascular: Regular rate and rhythm. Heart sounds normal. Negative for murmur, friction rub, or gallop. Pulmonary: Effort normal, no respiratory distress. No stridor. No wheezing Decreased breath sound bilaterally. Abdomen: Soft, no distention, no abdominal tenderness. No guarding. No masses. Musculoskeletal: ROM normal. Skin: Warm and dry. Skin is not jaundiced. No rash Extremities: No clubbing or cyanosis. 1+ pitting lower extremity edema. Neurological: No focal deficits. Alert and oriented x person, place and time. Mental status is at baseline. No motor weakness. Psychiatric: Mood, behavior, thought content normal. Cooperative with exam. Medications Current Medications Scheduled Meds[1] PRN Mediations PRN Meds[2] IV Drips/Infusions Continuous Meds[3] Labs CBC Results from last 7 days Lab Units 08/11/24 0620 WBC AUTO 10*3/uL 7.5 HEMOGLOBIN g/dL 13.7 HEMATOCRIT % 42.1 PLATELETS 10*3/uL 114* BMP: Results from last 7 days Lab Units 08/11/24 0620 08/10/24 0453 08/09/24 0319 SODIUM mmol/L 137 137 138 POTASSIUM mmol/L 4.1 4.2 4.5 CHLORIDE mmol/L 100 101 99 CO2 mmol/L 27 27 29 BUN mg/dL 18 24* 24* CREATININE mg/dL 0.75 0.80 0.83 GLUCOSE mg/dL 78* 112 118* CALCIUM mg/dL 9.6 9.4 9.9 ABG: Results from last 7 days Lab Units 08/04/24 1135 SOURCE OF OXYGEN High Flow Oxygen Therapy (FiO2) LIVER PROFILE Results from last 7 days Lab Units 08/10/24 0453 08/09/24 0319 08/08/24 0313 ALK PHOS U/L 78 78 78 BILIRUBIN TOTAL mg/dL 0.3 0.3 0.3 PROTEIN TOTAL g/dL 6.7 7.3 7.5 ALT U/L 9 6 9 AST U/L 17 11 16 INR PTT No results found for: PTT Cultures Pneumonia PCR (08/04/24): Haemophilus influenzae, rhinovirus Radiology All relevant/recent imaging was personally reviewed by me. Please see official radiology report for details. CXR (08/03/24) Limited exam due to obesity and hypoinflation lungs and portable technique. There appears to be hypoinflation lungs with pulmonary vascular prominence with prominent interstitial markings with small area of infiltrate or atelectasis right lower lobe and possible left lung base. Advanced degenerative joint disease both shoulders Assessment Acute on chronic hypoxemic respiratory failure /severe hypoxemia doing slowly FiO2 having weaned down from 12 L to 5 L Chronic hypercarbic respiratory failure CAP due to Haemophilus influenzae Rhinovirus URI Possible asthma Trivial smoking history Morbid obesity Possible JOCELIN/OHS/claustrophobic cannot tolerate PAP therapy Recommendations Oxygen saturations improved quite currently on 2 L keep saturation around 90 percentile as able RAPID tapering and discontinuation of systemic steroid Patient claustrophobic cannot use PAP therapy Incentive spirometry Bronchodilator therapy Continue diuresis as tolerated, keeping her on dry side Antibiotics course completed Okay for discharge from pulmonary standpoint [facility] Pulmonary Medicine [facility] [1] amLODIPine, 5 mg, Oral, q24h enoxaparin, 30 mg, SubCUTAneous, 2 times per day escitalopram, 10 mg, Oral, Nightly furosemide, 20 mg, Oral, BID ipratropium-albuterol, 1 ampule, Nebulization, q4h WA labetalol, 200 mg, Oral, q24h levothyroxine, 137 mcg, Oral, q24h mirabegron ER, 25 mg, Oral, Daily pantoprazole, 40 mg, Oral, qAM AC potassium chloride CR, 20 mEq, Oral, q12h predniSONE, 20 mg, Oral, Daily Followed by [START ON 08/12/2024] predniSONE, 10 mg, Oral, Daily sodium chloride 0.9%, 10 mL, IntraVENous, 2 times per day sodium chloride 0.9%, 10 mL, IntraVENous, q8h stomahesive in petrolatum, , Topical, q8h traZODone, 50 mg, Oral, Nightly [2] PRN medications: acetaminophen, albuterol, guaiFENesin, hydrOXYzine pamoate, perflutren protein A microsphere (Optison) 3 mL in sodium chloride (PF) 0.9 % 10 mL IV, polyethylene glycol (PEG) 3350, senna-docusate sodium, sodium chloride, stomahesive in petrolatum [3] Nutrition Assessment Type and Reason for Visit: Reassess Nutrition Recommendations/Plan: Continue diet as ordered Adult diet Regular -Operations Analyst ordering meals -notified diet office of pt preferences for soft foods. Pt states she does not want to order her own meals at this time. Encourage PO as tolerated Per mnt protocol will add HS snack to encourage adequate protein intake Please continue to record meal intakes in RN Flowsheets ?last bm record 08/05 - monitor RD to monitor labs, weight, skin status, PO intake, bowel function-follow up weekly Malnutrition Assessment: Malnutrition Status: At risk for malnutrition (Comment) (age, decreased po intake) Context: Chronic Illness Findings of the 6 clinical characteristics of malnutrition: Energy Intake: 75% or less estimated energy requirements for 1 month or longer (predicted) Weight Loss: No significant weight loss Body Fat Loss: No significant body fat loss Muscle Mass Loss: No significant muscle mass loss Fluid Accumulation: (moderate) Extremities Pharmacy Teacher Strength: Not Performed Nutrition Assessment: 83 y.o female with acute COPD exacerbation, found to be positive for acute URI with rhinovirus and positive PNA for haemophilus influenzae. Pulmonology following. pt up in chair eating lunch small meal noted -states she is having difficulty chewing/ needs softer foods unable to chew fresh fruit cup but able to chew salad. pt preference for HS snack obtained Estimated Daily Nutrient Needs: Energy Requirements Based On: Kcal/kg Weight Used for Energy Requirements: [place] Weight for Energy Calculation (kg): 45 kg Total Energy Requirements (kcals/day): 5898-1838 (25-30 kcal/kg IBW) Weight Used for Protein Requirements: [place] Weight in Kg Used for Protein Requirements: 45 kg Estimated Total Protein (g/day): 54-68 (1.2-1.5 g protein/kg IBW) Estimated Daily Total Fluid (ml/day): per MD Nutrition Related Findings: +2 nava LE edema, bm 08/05 loose. bun 24, alb 2.8, bnp 890. abx, lasix, protonix, k+, prednisone. wts reviewed -stable last wt 08/06. unable to obtain wt today Wound Type: (Right buttock: Pressure Injury (DTI) - Stable per Wound Care) Current Nutrition Therapies: Adult diet Regular Current Oral Intake Average Meal Intake: 76-100% Average Supplements Intake: None Ordered, Refusing to take Anthropometric Measures: Height: 152.4 cm (5') Current Body Weight: 99.8 kg (220 lb) Weight Source: Stated Admission Body Weight: 99.8 kg (220 lb) Usual Body Weight: 89.4 kg (197 lb) (11/11/23) % Weight Change (Calculated): 11.7 [place] Body Weight (lbs) (Calculated): 100 lbs [place] Body Weight (Kg) (Calculated): 45 kg % [place] Body Weight (Calculated): 220 % BMI (kg/m2) (Calculated): 43 Weight Adjustment For: No Adjustment BMI Categories: Obese Class 3 (BMI 40.0 or greater) Nutrition Diagnosis: Increased nutrient needs related to acute injury/trauma, impaired respiratory function as evidenced by (COPD exacerbation) Nutrition Interventions: Nutrition Education/Counseling: Education not indicated Coordination of Nutrition Care: Continue to monitor while inpatient Plan of Care discussed with: Patient Goals: Previous Goal Met: Progressing toward Goal(s) Goals: PO intake 75% or greater, by next RD assessment Nutrition Monitoring and Evaluation: Behavioral-Environmental Outcomes: None Identified Food/Nutrient Intake Outcomes: Food and Nutrient Intake Physical Signs/Symptoms Outcomes: Biochemical Data, Chewing or Swallowing, GI Status, Nausea or Vomiting, Fluid Status or Edema, Hemodynamic Status, Nutrition Focused Physical Findings, Skin, Weight Discharge Planning: Continue current diet Kamilah Rodriguez RD Contact: *[phone] or via Secure Chat Hospitalist Progress Note 08/10/2024 [phone]: Please page me ([phone]) for patient care issues. [phone]: Please page [facility] Hospitalist for any issues. Subjective: Admit Date: 08/03/2024 PCP: No primary care provider on file. Room#: B2-255/B2-255 A Interval History: patient admitted for SOB and acute COPD exacerbation. No overnight issues. Complaints reported by patient: endorses dry cough, denies fevers ,chills , sweats. Adult diet Regular 24HR INTAKE/OUTPUT: Intake/Output Summary (Last 24 hours) at 08/10/2024 1143 Last data filed at 08/10/2024 0900 Gross per 24 hour Intake 1050 ml Output 1575 ml Net -525 ml Past Medical History: Medical History[1] LABS: CBC: Recent Labs 08/08/2431208/09/2431808/10/24 0453 WBC 7.3 9.3 9.2 RBC 4.73 4.87 4.64 HGB 13.6 14.1 13.3 HCT 41.9 43.0 41.1 MCV 88.6 88.3 88.6 RDW 13.7 13.6 13.8 PLT 124* 146 133* BMP: Recent Labs 08/08/2431208/09/2431808/10/24 0453 NA 139 138 137 K 4.7 4.5 4.2 CL 100 99 101 CO2 29 29 27 BUN 21 24* 24* CREATININE 0.80 0.83 0.80 GLUCOSE 118* 118* 112 CALCIUM 9.8 9.9 9.4 ANIONGAP 10 10 9 LIVER PROFILE: Recent Labs 08/08/2431208/09/2431808/10/24 0453 AST 16 11 17 ALT 9 6 9 BILITOT 0.3 0.3 0.3 ALKPHOS 78 78 78 PROT 7.5 7.3 6.7 PT/INR: No results for input(s): PROTIME, INR in the last 72 hours. CARDIAC ENZYMES: No results for input(s): TROPONINI in the last 72 hours. Procalcitonin: No results found for: PROCAL COVID-19 PCR: No results for input(s): COVID19 in the last 72 hours. Objective: Vitals: BP 135/78 (BP Location: Right arm, Patient Position: Lying) Pulse 84 Temp 36.8 C (98.2 F) (Temporal) Resp 19 Ht 5' (1.524 m) Wt 220 lb (99.8 kg) SpO2 93% BMI 42.97 kg/m Pulse Ox: SpO2 Av.9 % Min: 92 % Max: 93 % Supplemental O2: O2 Flow Rate (L/min): 5 L/min General appearance: No apparent distress, appears stated age, obese elderly female in NAD Respiratory: Course diminished lung sounds BL . No wheezing. Cardiovascular: S1 and S2 present, no murmur detected Abdomen: Soft, non-tender, non-distended Skin: Skin color, texture, turgor normal. No rashes or lesions. Neurologic: grossly non-focal. Medications: Continuous Meds[2] Scheduled Meds[3] Assessment Acute COPD Exacerbation Acute on chronic hypoxic hypercapnic respiratory failure Acute URI with rhinovirus Acute PNA with haemophilus influenzae Baseline on 2L via NC. Wean as tolerated Breathing treatments, steroids, abx Pulmonology following Mild HFpEF, LVEF of 60% Echo reviewed and stable PRN lasix Chronic senile dementia HTN Hypothyroidism GERD COPD Chronic back pain Osteoporosis Hx of depression Morbid obesity HSA OHS Hx of medical noncompliance Medical Decision Making 08/10/24: Patient with acute COPD Exacerbation, found to be positive for acute URI with rhinovirus and positive PNA for haemophilus influenzae. Breathing treatments, steroids, abx. Pulmonology following. Baseline patient is on 2L via NC, requiring 5-6, wean as tolerated. Home medications reviewed and resumed as indicated. Labs and vitals reviewed and stable. Patient to have PT/OT at [facility] on discharge. Goal O2 requirements of 4L via NC. CBC and BMP in the AM. -DVT prophylaxis: [x] Lovenox [] Heparin [] SCDs [x] Encourage ambulation [] Already on Anticoagulation Anticipated Discharge - Date - 08/11/24 - Location - Home - Pending the following - weaning O2 Toxic drug monitoring/narrow therapeutic index drug monitoring : # Drug name : # Route administered : # Method of monitoring : Extended Emergency Contact Information Primary Emergency Contact: IRVINAMBIKA Vigil Mobile Relation: Daughter Preferred language: Citizen Of [place] Back Feeder needed? No Secondary Emergency Contact: EDGARDOLIONEL Mobile Relation: Son Preferred language: Citizen Of [place] Back Feeder needed? No Helen Wan DO Division of Hospitalist Medicine Inpatient Medical Services/[facility] [place] PAGER: Epic chat [1] No past medical history on file. [2] [3] amLODIPine, 5 mg, Oral, q24h cephalexin, 1,000 mg, Oral, q8h enoxaparin, 30 mg, SubCUTAneous, 2 times per day escitalopram, 10 mg, Oral, Nightly furosemide, 20 mg, Oral, BID ipratropium-albuterol, 1 ampule, Nebulization, q4h WA labetalol, 200 mg, Oral, q24h levothyroxine, 137 mcg, Oral, q24h mirabegron ER, 25 mg, Oral, Daily pantoprazole, 40 mg, Oral, qAM AC potassium chloride CR, 20 mEq, Oral, q12h predniSONE, 20 mg, Oral, Daily Followed by [START ON 08/12/2024] predniSONE, 10 mg, Oral, Daily sodium chloride 0.9%, 10 mL, IntraVENous, 2 times per day sodium chloride 0.9%, 10 mL, IntraVENous, q8h stomahesive in petrolatum, , Topical, q8h traZODone, 50 mg, Oral, Nightly Images from the original note were not included. [facility] [place] Pulmonary Medicine [address] [place], [place] [id number] Patient - Emily Peralta, Age - 83 y.o. - 1940 Room Number - B2-255/B2-255 A Consulting - Helen Wan DO Primary Care Physician - No primary care provider on file. [id number] Date of Admission - 08/03/2024 4:21 PM Hospital Day - 7 Chief Complaint: shortness of breath Emily Peralta is a 83 y.o. female who pulmonary is following for acute on chronic hypoxemic respiratory failure, CAP Interval History Awake and alert offering no complaint today sitting on the chair 5 L [place] saturation 93 percentile She is afebrile Minimal cough No chest pain She is claustrophobic cannot use any PAP therapy All other systems reviewed and negative unless otherwise stated in HPI. Objective Vitals: BP 128/85 (BP Location: Right arm, Patient Position: Sitting) Pulse 73 Temp 36.7 C (98 F) (Temporal) Resp 18 Ht 5' (1.524 m) Wt 220 lb (99.8 kg) SpO2 93% BMI 42.97 kg/m Pulse Ox: SpO2 Av % Min: 92 % Max: 94 % Supplemental O2: O2 Flow Rate (L/min): 5 L/min I/O 24HR INTAKE/OUTPUT: Intake/Output Summary (Last 24 hours) at 08/10/2024 0945 Last data filed at 08/10/2024 0900 Gross per 24 hour Intake 1050 ml Output 1575 ml Net -525 ml Exam General appearance: On 5 L a cannula saturation 93% time HEENT: Normocephalic, atraumatic. No scleral icterus, no right/left eye discharge. Conjunctivae normal. Pupils equal round and reactive to light. Right external ear normal, Left external ear normal. No congestion. Mouth: mucous membranes moist. Pharynx, Oropharynx is clear. No oropharyngeal exudate. Neck: ROM normal, No thyromegaly. No cervical lymphadenopathy Cardiovascular: Regular rate and rhythm. Heart sounds normal. Negative for murmur, friction rub, or gallop. Pulmonary: Effort normal, no respiratory distress. No stridor. No wheezing Decreased breath sound bilaterally. Abdomen: Soft, no distention, no abdominal tenderness. No guarding. No masses. Musculoskeletal: ROM normal. Skin: Warm and dry. Skin is not jaundiced. No rash Extremities: No clubbing or cyanosis. 1+ pitting lower extremity edema. Neurological: No focal deficits. Alert and oriented x person, place and time. Mental status is at baseline. No motor weakness. Psychiatric: Mood, behavior, thought content normal. Cooperative with exam. Medications Current Medications Scheduled Meds[1] PRN Mediations PRN Meds[2] IV Drips/Infusions Continuous Meds[3] Labs CBC Results from last 7 days Lab Units 08/10/24 0453 WBC AUTO 10*3/uL 9.2 HEMOGLOBIN g/dL 13.3 HEMATOCRIT % 41.1 PLATELETS 10*3/uL 133* BMP: Results from last 7 days Lab Units 08/10/24 0453 08/09/24 0319 08/08/24 0313 SODIUM mmol/L 137 138 139 POTASSIUM mmol/L 4.2 4.5 4.7 CHLORIDE mmol/L 101 99 100 CO2 mmol/L 27 29 29 BUN mg/dL 24* 24* 21 CREATININE mg/dL 0.80 0.83 0.80 GLUCOSE mg/dL 112 118* 118* CALCIUM mg/dL 9.4 9.9 9.8 ABG: Results from last 7 days Lab Units 08/04/24 1135 SOURCE OF OXYGEN High Flow Oxygen Therapy (FiO2) LIVER PROFILE Results from last 7 days Lab Units 08/10/24 0453 08/09/24 0319 08/08/24 0313 ALK PHOS U/L 78 78 78 BILIRUBIN TOTAL mg/dL 0.3 0.3 0.3 PROTEIN TOTAL g/dL 6.7 7.3 7.5 ALT U/L 9 6 9 AST U/L 17 11 16 INR PTT No results found for: PTT Cultures Pneumonia PCR (08/04/24): Haemophilus influenzae, rhinovirus Radiology All relevant/recent imaging was personally reviewed by me. Please see official radiology report for details. CXR (08/03/24) Limited exam due to obesity and hypoinflation lungs and portable technique. There appears to be hypoinflation lungs with pulmonary vascular prominence with prominent interstitial markings with small area of infiltrate or atelectasis right lower lobe and possible left lung base. Advanced degenerative joint disease both shoulders Assessment Acute on chronic hypoxemic respiratory failure /severe hypoxemia doing slowly FiO2 having weaned down from 12 L to 5 L Chronic hypercarbic respiratory failure CAP due to Haemophilus influenzae Rhinovirus URI Possible asthma Trivial smoking history Morbid obesity Possible JOCELIN/OHS/claustrophobic cannot tolerate PAP therapy Recommendations Improving slowly/FiO2 has been weaned down to 5 L will continue to wean FiO2 keep saturation around 90 percentile as able RAPID tapering and discontinuation of systemic steroid FiO2 was weaned down to 5 L keep saturation between 90-92 percentile Patient claustrophobic cannot use PAP therapy Incentive spirometry Bronchodilator therapy Continue diuresis as tolerated, keeping her on dry side On p.o. cephalexin [facility] [1] amLODIPine, 5 mg, Oral, q24h cephalexin, 1,000 mg, Oral, q8h enoxaparin, 30 mg, SubCUTAneous, 2 times per day escitalopram, 10 mg, Oral, Nightly furosemide, 20 mg, Oral, BID ipratropium-albuterol, 1 ampule, Nebulization, q4h WA labetalol, 200 mg, Oral, q24h levothyroxine, 137 mcg, Oral, q24h mirabegron ER, 25 mg, Oral, Daily pantoprazole, 40 mg, Oral, qAM AC potassium chloride CR, 20 mEq, Oral, q12h predniSONE, 20 mg, Oral, Daily Followed by [START ON 08/12/2024] predniSONE, 10 mg, Oral, Daily sodium chloride 0.9%, 10 mL, IntraVENous, 2 times per day sodium chloride 0.9%, 10 mL, IntraVENous, q8h stomahesive in petrolatum, , Topical, q8h traZODone, 50 mg, Oral, Nightly [2] PRN medications: acetaminophen, albuterol, guaiFENesin, hydrOXYzine pamoate, perflutren protein A microsphere (Optison) 3 mL in sodium chloride (PF) 0.9 % 10 mL IV, polyethylene glycol (PEG) 3350, senna-docusate sodium, sodium chloride, stomahesive in petrolatum [3] Images from the original note were not included. PHYSICAL THERAPY [facility] Treatment Note Name/MRN: Emily Peralta ([id number]) Date of : 1940 Age: 83 y.o. Room[facility]: [facility] A Visit #: 4 out of 8 (visits added by PT due to continued need for acute skilled PT) Discharge Recommendation: [facility] Equipment Needed: No Assessment Pt demos improvement in functional mobility and progress toward therapy goals. Pt completes functional transfers at CGA, CGA for ambulation with FWW. Pt able to progress ambulation distance this session. SpO2 >93% throughout. Pt will continue to benefit from acute skilled PT to address current deficits. Recommendation for SNF remains appropriate. Goals updated at this time due to pt progress. Subjective Pt pleasant and agreeable to therapy session Pain: 0-10 pain scale: 5/10 Location: LBP Medical Precautions: No active isolations Proper PPE donned/doffed in accordance with facility standards. Fall Risk: Sotomayor Fall Risk Score: 85 (Low Risk) Sotomayor Fall Risk Score: 85 (High Risk) Precautions/Restrictions: Lines/Drains/Airways: 5L NC Fall Precautions Overall Cognitive Status: Exceptions - Memory: decreased recall of recent events and decreased short term memory - Problem solving: assistance required to generate solutions, assistance required to implement solutions, assistance required to identify errors made, assistance required to correct errors made, and decreased awareness of errors - Sequencing: requires cues for some Overall Orientation Status: Oriented x4 Family/Caregiver Present: none Objective Transfers/Mobility Sit to stand: Contact Guard Stand to sit: Contact Guard X4 from recliner, x1 from EOB. Cues provided for hand placement, alignment of FWW to surface. Good carryover of cues noted. CGA provided to monitor safety and stability. Device(s) used: Front wheeled walker Ambulation Ambulation 1 Assistive device(s) used: Front wheeled walker Assist level: Contact Guard Distance (ft): ~12 feet x, ~30 feet x1, ~25 feet x2 Quality of gait: No LOB, reciprocal stepping, shuffling, slow moses Pt demos forward flexed posture, short, shuffling gait. Cues for upright posture, maintain TSERING within FWW, pursed lip breathing. Pt requires increased time to complete. Seated rest breaks required between trials. CGA provided throughout to monitor safety and stability. Balance During Session: Posture: fair Standing - Static: Contact Guard Standing - Dynamic: Contact Guard Static standing no UE assist- ~30 seconds, 1 minute. CGA provided throughout with mild instability with cues provided for upright posture. Pt fearful of falling, encouragement provided. Plan Continue acute PT per plan of care. Safety/Education Safety Safety Devices in place: All fall risk precautions in place, call light within reach, left in chair, gait belt, patient at risk for falls, nurse notified, and no alarms engaged upon entry Restraints: N/A Education Education Given To: patient Education Provided: PT Role, PT Goals, Gait Training, Plan of Care, Transfer Training, Energy Conservation, Equipment, Benefits of Increasing Activity, and Breathing Techniques Education Method: Verbal and Demonstration Barriers to Learning: None Education Outcome: Verbalized Understanding, Demonstrated Understanding, and Continued Education Needed Outcome Measures AM-PAC AM-PAC Inpatient Mobility Raw Score (No Stairs) : 15 JH-HLM JH-HLM Score: Walked 25 ft or more (i.e. walked outside of room) Goals Patient Stated Goal: to get out of here Encounter Problems Encounter Problems (Active) Balance Patient will maintain dynamic standing balance for 3-5 minutes with SBA in order to demonstrate decreased risk of falling. (Progressing) Start: 08/04/24 Expected End: 08/11/24 Exercise Patient will complete lower extremity exercises for 1-2 sets / 5-10 reps in order to improve strength and activity tolerance for mobility. (Not Addressed) Start: 08/04/24 Expected End: 08/11/24 Mobility Patient will ambulate 15 feet with SBA and rolling walker in order to improve safety and independence with mobility. (Completed) Start: 08/04/24 Expected End: 08/11/24 Resolved: 08/10/24 Updated to: Patient will ambulate 50 feet with SBA and rolling walker in order to improve safety and independence with mobility. Update reason: pt progress Patient will ambulate 50 feet with SBA and rolling walker in order to improve safety and independence with mobility. (Progressing) Start: 08/10/24 Expected End: 08/11/24 Transfers Patient will perform bed mobility with modified independence in order to improve independence and prepare for out of bed mobility. (Not Addressed) Start: 08/04/24 Expected End: 08/11/24 Patient will complete functional transfer with rolling walker with CGA in order to prepare for ambulation. (Completed) Start: 08/04/24 Expected End: 08/11/24 Resolved: 08/10/24 Updated to: Patient will complete functional transfer with rolling walker with mod I in order to prepare for ambulation. Update reason: pt progress Patient will complete functional transfer with rolling walker with mod I in order to prepare for ambulation. (Progressing) Start: 08/10/24 Expected End: 08/11/24 Therapy Time Individual Co-treatment Time In 0930 Time Out 0957 Minutes 27 Timed Code Treatment Minutes: 23 Minutes (ther act x1, gait x1) Jocelyn Tian PT Hospitalist Progress Note 08/09/2024 [phone]: Please page me ([phone]) for patient care issues. [phone]: Please page [facility] Hospitalist for any issues. Subjective: Admit Date: 08/03/2024 PCP: No primary care provider on file. Room#: B2-255/B2-255 A Interval History: Patient currently sitting up in chair again today on high flow NC O2. She does look overall comfortable in nad. Does not appear short of breath today. When asked if she feels short of breath, she says she is not short of breath currently either. Yesterday she mentioned to me that she is always short of breath. However she is denying any shortness of breath today so appears the Lasix is helping. Adult diet Regular @[id number]@ 24HR INTAKE/OUTPUT: Intake/Output Summary (Last 24 hours) at 08/09/2024 1225 Last data filed at 08/09/2024 0556 Gross per 24 hour Intake 300 ml Output 2200 ml Net -1900 ml Past Medical History: Medical History[1] LABS: CBC: Recent Labs 08/07/2412408/08/2431208/09/24318 WBC 12.1* 7.3 9.3 RBC 4.86 4.73 4.87 HGB 14.1 13.6 14.1 HCT 42.1 41.9 43.0 MCV 86.6 88.6 88.3 RDW 13.5 13.7 13.6 PLT 153 124* 146 BMP: Recent Labs 08/07/2412408/08/2431208/09/24318 NA 138 139 138 K 4.4 4.7 4.5 CL 101 100 99 CO2 26 29 29 BUN 28* 21 24* CREATININE 0.79 0.80 0.83 GLUCOSE 74* 118* 118* CALCIUM 9.8 9.8 9.9 ANIONGAP 11 10 10 LIVER PROFILE: Recent Labs 08/07/2412408/08/2431208/09/24318 AST 22 16 11 ALT 10 9 6 BILITOT 0.4 0.3 0.3 ALKPHOS 78 78 78 PROT 7.2 7.5 7.3 PT/INR: No results for input(s): PROTIME, INR in the last 72 hours. CARDIAC ENZYMES: No results for input(s): TROPONINI in the last 72 hours. Procalcitonin: No results found for: PROCAL COVID-19 PCR: No results for input(s): COVID19 in the last 72 hours. Objective: Vitals: BP 123/94 (BP Location: Right arm, Patient Position: Sitting) Pulse 76 Temp 36.6 C (97.9 F) (Temporal) Resp 18 Ht 5' (1.524 m) Wt 220 lb (99.8 kg) SpO2 94% BMI 42.97 kg/m Pulse Ox: SpO2 Av.4 % Min: 93 % Max: 96 % Supplemental O2: O2 Flow Rate (L/min): 5 L/min General appearance: No apparent distress, appears stated age, HEENT: Eyes: No scleral icterus Oral: Tongue is semi-moist Cardiovascular: S1/S2 heard, RRR, 2-3 + pitting leg edema Respiratory: Breath sounds decreased but clear Abdomen: Soft, non-tender, non-distended bowel sounds positive Musculoskeletal: No obvious deformities seen Skin: No visible rashes or lesions. Medications: Continuous Meds[2] Scheduled Meds[3] Assessment Acute, acute on chronic, unstable/uncontrolled chronic problems/diagnoses: # Acute COPD exacerbation -continue breathing treatments and started on IV steroids # Acute hypoxemic on chronic hypercapnic respiratory failure-continue high flow nasal cannula oxygen, wean as able. Pulmonary following. # H. Influenza Pneumonia - Continue rocephin # Rhinovirus infection - supportive tx # Pitting leg swelling, BNP elevated - given age and BMI, TTE has been ordered for further evaluation of LV and right heart function Stable chronic problems affecting care, new non-acute diagnoses: # Senile dementia with behavior # Chronic hypertension # Chronic hypothyroidism # GERD # COPD # Chronic back pain # Chronic diastolic heart failure # Osteoporosis # Hx of depression # Morbid obesity with JOCELIN and OHS # Hx of medical noncompliance. Plan -Pulmonary following -continue NC O2, wean as able -on ceftriaxone day 6. ID antibx stwship recommend de-escalating to cephalexin 1 g q8h through the end of day tomorrow to complete a 7-day course. Order placed -continue breathing tx and Solu-Medrol 20 mg IV every 12 hours -continue daily PRN lasix 40mg IV (likely do one more dose today, but 20mg IV once (she is already on po bid as well). It seems to be helping her breathing as well and she does not feel short of breath today. Also her high flow oxygen is down to 5 L. She was on 8 L before). -PT recommending SNF (she came from facility at [facility] and plan is to go back to ECF with restorative therapy. However, she is still requiring a lot of O2 (on high flow NC) and pulmonary anticipating long term care social worker weaning and recommending LTACH -check daily labs Extended Emergency Contact Information Primary Emergency Contact: AMBIKA RICHARDS Mobile Relation: Daughter Preferred language: Citizen Of [place] Back Feeder needed? No Secondary Emergency Contact: LIONEL REYNOSO Mobile Relation: Son Preferred language: Citizen Of [place] Back Feeder needed? No Tate Givens MD Division of Hospitalist Medicine Inpatient Medical Services/[facility] [place] PAGER: Epic chat [1] No past medical history on file. [2] [3] amLODIPine, 5 mg, Oral, q24h cephalexin, 1,000 mg, Oral, q8h enoxaparin, 30 mg, SubCUTAneous, 2 times per day escitalopram, 10 mg, Oral, Nightly furosemide, 20 mg, Oral, BID ipratropium-albuterol, 1 ampule, Nebulization, q4h WA labetalol, 200 mg, Oral, q24h levothyroxine, 137 mcg, Oral, q24h mirabegron ER, 25 mg, Oral, Daily pantoprazole, 40 mg, Oral, qAM AC potassium chloride CR, 20 mEq, Oral, q12h [START ON 08/10/2024] predniSONE, 20 mg, Oral, Daily Followed by [START ON 08/12/2024] predniSONE, 10 mg, Oral, Daily sodium chloride 0.9%, 10 mL, IntraVENous, 2 times per day sodium chloride 0.9%, 10 mL, IntraVENous, q8h stomahesive in petrolatum, , Topical, q8h traZODone, 50 mg, Oral, Nightly Images from the original note were not included. [facility] [place] Pulmonary Medicine [address] [place] [address] Patient - Emily Peralta, Age - 83 y.o. - 1940 Room Number - B2-255/B2-255 A Consulting - Tate Givens MD Primary Care Physician - No primary care provider on file. [id number] Date of Admission - 08/03/2024 4:21 PM Hospital Day - 6 Chief Complaint: shortness of breath Emily Peralta is a 83 y.o. female who pulmonary is following for acute on chronic hypoxemic respiratory failure, CAP Interval History Awake and alert currently sitting on the chair on 6 L a cannula saturation was 99 percentile, FiO2 was dropped to 5 L after 20 minutes saturation was 91 to 93% Patient feeling better however is still short of breath although FiO2 has been weaned down from 12 L to 5 L She is afebrile She is claustrophobic cannot use any PAP therapy All other systems reviewed and negative unless otherwise stated in HPI. Objective Vitals: BP 146/78 Pulse 66 Temp 36.6 C (97.9 F) (Temporal) Resp 18 Ht 5' (1.524 m) Wt 220 lb (99.8 kg) SpO2 95% BMI 42.97 kg/m Pulse Ox: SpO2 Av.3 % Min: 93 % Max: 96 % Supplemental O2: O2 Flow Rate (L/min): 6 L/min I/O 24HR INTAKE/OUTPUT: Intake/Output Summary (Last 24 hours) at 08/09/2024 0836 Last data filed at 08/09/2024 0556 Gross per 24 hour Intake 520 ml Output 2200 ml Net -1680 ml Exam General appearance: Awake, alert, currently on 6 L a cannula HEENT: Normocephalic, atraumatic. No scleral icterus, no right/left eye discharge. Conjunctivae normal. Pupils equal round and reactive to light. Right external ear normal, Left external ear normal. No congestion. Mouth: mucous membranes moist. Pharynx, Oropharynx is clear. No oropharyngeal exudate. Neck: ROM normal, No thyromegaly. No cervical lymphadenopathy Cardiovascular: Regular rate and rhythm. Heart sounds normal. Negative for murmur, friction rub, or gallop. Pulmonary: Effort normal, no respiratory distress. No stridor. No wheezing Decreased breath sound bilaterally. Abdomen: Soft, no distention, no abdominal tenderness. No guarding. No masses. Musculoskeletal: ROM normal. Skin: Warm and dry. Skin is not jaundiced. No rash Extremities: No clubbing or cyanosis. 1+ pitting lower extremity edema. Neurological: No focal deficits. Alert and oriented x person, place and time. Mental status is at baseline. No motor weakness. Psychiatric: Mood, behavior, thought content normal. Cooperative with exam. Medications Current Medications Scheduled Meds[1] PRN Mediations PRN Meds[2] IV Drips/Infusions Continuous Meds[3] Labs CBC Results from last 7 days Lab Units 08/09/24318 WBC AUTO 10*3/uL 9.3 HEMOGLOBIN g/dL 14.1 HEMATOCRIT % 43.0 PLATELETS 10*3/uL 146 BMP: Results from last 7 days Lab Units 08/09/2431808/08/2431208/07/24 0125 SODIUM mmol/L 138 139 138 POTASSIUM mmol/L 4.5 4.7 4.4 CHLORIDE mmol/L 99 100 101 CO2 mmol/L 29 29 26 BUN mg/dL 24* 21 28* CREATININE mg/dL 0.83 0.80 0.79 GLUCOSE mg/dL 118* 118* 74* CALCIUM mg/dL 9.9 9.8 9.8 ABG: Results from last 7 days Lab Units 08/04/24 1135 SOURCE OF OXYGEN High Flow Oxygen Therapy (FiO2) LIVER PROFILE Results from last 7 days Lab Units 08/09/2431808/08/2431208/07/24 0125 ALK PHOS U/L 78 78 78 BILIRUBIN TOTAL mg/dL 0.3 0.3 0.4 PROTEIN TOTAL g/dL 7.3 7.5 7.2 ALT U/L 6 9 10 AST U/L 11 16 22 INR PTT No results found for: PTT Cultures Pneumonia PCR (08/04/24): Haemophilus influenzae, rhinovirus Radiology All relevant/recent imaging was personally reviewed by me. Please see official radiology report for details. CXR (08/03/24) Limited exam due to obesity and hypoinflation lungs and portable technique. There appears to be hypoinflation lungs with pulmonary vascular prominence with prominent interstitial markings with small area of infiltrate or atelectasis right lower lobe and possible left lung base. Advanced degenerative joint disease both shoulders Assessment Acute on chronic hypoxemic respiratory failure /severe hypoxemia doing slowly FiO2 having weaned down from 12 L to 5 L Chronic hypercarbic respiratory failure CAP due to Haemophilus influenzae Rhinovirus URI Possible asthma Trivial smoking history Morbid obesity Possible JOCELIN/OHS/claustrophobic cannot tolerate PAP therapy Recommendations Improving slowly IV antibiotics ceftriaxone and IV steroid will switch to p.o. prednisone low-dose taper off quickly FiO2 was weaned down to 5 L keep saturation between 90-92 percentile Patient claustrophobic cannot use PAP therapy Incentive spirometry Bronchodilator therapy Continue diuresis as tolerated, keeping her on dry side Darrick Marcum Pulmonary Medicine [facility] [1] amLODIPine, 5 mg, Oral, q24h cefTRIAXone, 1,000 mg, IntraVENous, q24h enoxaparin, 30 mg, SubCUTAneous, 2 times per day escitalopram, 10 mg, Oral, Nightly furosemide, 20 mg, Oral, BID ipratropium-albuterol, 1 ampule, Nebulization, q4h WA labetalol, 200 mg, Oral, q24h levothyroxine, 137 mcg, Oral, q24h methylPREDNISolone sod suc (PF), 20 mg, IntraVENous, q12h mirabegron ER, 25 mg, Oral, Daily pantoprazole, 40 mg, Oral, qAM AC potassium chloride CR, 20 mEq, Oral, q12h sodium chloride 0.9%, 10 mL, IntraVENous, 2 times per day sodium chloride 0.9%, 10 mL, IntraVENous, q8h stomahesive in petrolatum, , Topical, q8h traZODone, 50 mg, Oral, Nightly [2] PRN medications: acetaminophen, albuterol, guaiFENesin, hydrOXYzine pamoate, perflutren protein A microsphere (Optison) 3 mL in sodium chloride (PF) 0.9 % 10 mL IV, polyethylene glycol (PEG) 3350, senna-docusate sodium, sodium chloride, stomahesive in petrolatum [3] Images from the original note were not included. PHYSICAL THERAPY [facility] Treatment Note Name/MRN: Emily Peralta ([id number]) Date of : 1940 Age: 83 y.o. Room/Bed: B2-255/B2-255 A Visit #: 3 out of 5 Discharge Recommendation: Correction Facility Equipment Needed: No Assessment Pt continues to demonstrate decreased functional mobility and demos limited participation in session. Pt completed x1 sit to stand transfer with Breana. Pt tolerated some seated exercises however reports R knee pain and coughing fits are limiting. Pt declined further mobility and requested assist to reposition in chair to get more comfortable. Pt will benefit from continued skilled PT to address current functional deficits. Recommend SNF. Subjective Patient agreeable to therapy. Nurse notified of pt's request for cough medication. Vitals: BP 146/78, SpO2 95%, HR 66bpm Pain: Pt reports R knee pain during exercises but did not rate pain level numerically. Medical Precautions: Droplet Proper PPE donned/doffed in accordance with facility standards. Fall Risk: Sotomayor Fall Risk Score: 85 (Low Risk) Sotomayor Fall Risk Score: 85 (High Risk) Precautions/Restrictions: Lines/Drains/Airways: 12L HFNC Fall Precautions Overall Cognitive Status: Exceptions - Attention span: attends with cues to redirect - Problem solving: assistance required to generate solutions and assistance required to implement solutions Family/Caregiver Present: none Objective Transfers/Mobility Sit to stand: Min Assist Stand to sit: Min Assist From recliner. Pt demos proper hand placement. Breana required for overall stability when ascending/descending. Pt only stood momentarily and declined further mobility. Device(s) used: None Exercises Exercises Heelslides: 1 set / 15 reps B LE in sitting with graded manual resistance Hip Adduction: 1 set / 15 reps B LE in sitting Knee Long Arc Quad: 1 set / 15 reps B LE in sitting Comments: Exercises performed to improve strength and promote joint mobility in prep for transfers/ambulation. Cues to improve technique and for attention to task. Pt reports R knee pain is limiting. Pt also demos coughing fits and states I'm miserable. Plan Continue acute PT per plan of care. Safety/Education Safety Safety Devices in place: All fall risk precautions in place, call light within reach, left in chair, patient at risk for falls, nurse notified, and no alarms engaged upon entry Restraints: No Education Education Given To: patient Education Provided: PT Role, PT Goals, Plan of Care, Home Exercise Program, and Transfer Training Education Method: Verbal Barriers to Learning: None Education Outcome: Verbalized Understanding, Demonstrated Understanding, and Continued Education Needed Outcome Measures AM-PAC AM-PAC Inpatient Mobility Raw Score (No Stairs) : 15 JH-HLM JH-HLM Score: Transferred to chair/commode Goals Patient Stated Goal: to feel better Encounter Problems Encounter Problems (Active) Balance Patient will maintain dynamic standing balance for 3-5 minutes with SBA in order to demonstrate decreased risk of falling. (Not Addressed) Start: 08/04/24 Expected End: 08/11/24 Exercise Patient will complete lower extremity exercises for 1-2 sets / 5-10 reps in order to improve strength and activity tolerance for mobility. (Progressing) Start: 08/04/24 Expected End: 08/11/24 Mobility Patient will ambulate 15 feet with SBA and rolling walker in order to improve safety and independence with mobility. (Not Addressed) Start: 08/04/24 Expected End: 08/11/24 Transfers Patient will perform bed mobility with modified independence in order to improve independence and prepare for out of bed mobility. (Not Addressed) Start: 08/04/24 Expected End: 08/11/24 Patient will complete functional transfer with rolling walker with CGA in order to prepare for ambulation. (Progressing) Start: 08/04/24 Expected End: 08/11/24 Therapy Time Individual Co-treatment Time In 0746 Time Out 0802 Minutes 16 Timed Code Treatment Minutes: 16 Minutes (x1 ther ex) Clary Wilson PTA Cosigned by Chuck Ruvalcaba PT at 08/09/2024 8:39 AM EDT Hospitalist Progress Note 08/08/2024 [phone]: Please page me ([phone]) for patient care issues. [phone]: Please page [facility] Hospitalist for any issues. Subjective: Admit Date: 08/03/2024 PCP: No primary care provider on file. Room#: B2-255/-255 A Interval History: Patient currently sitting up in chair again today on high flow NC O2. She admits to having a little sob this am. But then states she is always short of breath and she is never without being short of breath she states. Says this is normal for her. She denies any chest pain. No abdominal pain. No nausea or vomiting and no fevers or chills. She does look overall comfortable but maybe a little sob. Adult diet Regular @[id number]@ 24HR INTAKE/OUTPUT: Intake/Output Summary (Last 24 hours) at 08/08/2024 111 Last data filed at 08/07/20241951 Gross per 24 hour Intake -- Output 800 ml Net -800 ml Past Medical History: Medical History[1] LABS: CBC: Recent Labs 08/06/2423208/07/2412408/08/24312 WBC 14.1* 12.1* 7.3 RBC 4.49 4.86 4.73 HGB 13.0 14.1 13.6 HCT 39.6 42.1 41.9 MCV 88.2 86.6 88.6 RDW 13.2 13.5 13.7 PLT 160 153 124* BMP: Recent Labs 08/06/2423208/07/2412408/08/24312 NA 135* 138 139 K 3.9 4.4 4.7 CL 95* 101 100 CO2 30 26 29 BUN 27* 28* 21 CREATININE 0.84 0.79 0.80 GLUCOSE 123* 74* 118* CALCIUM 10.3* 9.8 9.8 ANIONGAP 10 11 10 LIVER PROFILE: Recent Labs 08/06/2423208/07/2412408/08/24312 AST 16 22 16 ALT 6 10 9 BILITOT 0.4 0.4 0.3 ALKPHOS 83 78 78 PROT 7.7 7.2 7.5 PT/INR: No results for input(s): PROTIME, INR in the last 72 hours. CARDIAC ENZYMES: No results for input(s): TROPONINI in the last 72 hours. Procalcitonin: No results found for: PROCAL COVID-19 PCR: No results for input(s): COVID19 in the last 72 hours. Objective: Vitals: BP 119/82 (BP Location: Right arm, Patient Position: Sitting) Pulse 67 Temp 36.9 C (98.5 F) (Temporal) Resp 17 Ht 5' (1.524 m) Wt 220 lb (99.8 kg) SpO2 94% BMI 42.97 kg/m Pulse Ox: SpO2 Av.8 % Min: 94 % Max: 98 % Supplemental O2: O2 Flow Rate (L/min): 8 L/min General appearance: No apparent distress, appears stated age, HEENT: Eyes: No scleral icterus Oral: Tongue is semi-moist Cardiovascular: S1/S2 heard, RRR, 3-4+ pitting leg edema Respiratory: Breath sounds decreased but clear Abdomen: Soft, non-tender, non-distended bowel sounds positive Musculoskeletal: No obvious deformities seen Skin: No visible rashes or lesions. Medications: Continuous Meds[2] Scheduled Meds[3] Assessment Acute, acute on chronic, unstable/uncontrolled chronic problems/diagnoses: # Acute COPD exacerbation -continue breathing treatments and started on IV steroids # Acute hypoxemic on chronic hypercapnic respiratory failure-continue high flow nasal cannula oxygen, wean as able. Pulmonary following. # H. Influenza Pneumonia - Continue rocephin # Rhinovirus infection - supportive tx # Pitting leg swelling, BNP elevated - given age and BMI, TTE has been ordered for further evaluation of LV and right heart function Stable chronic problems affecting care, new non-acute diagnoses: # Senile dementia with behavior # Chronic hypertension # Chronic hypothyroidism # GERD # COPD # Chronic back pain # Chronic diastolic heart failure # Osteoporosis # Hx of depression # Morbid obesity with JOCELIN and OHS # Hx of medical noncompliance. Plan -Pulmonary following -continue NC O2, wean as able -continue IV rocephin -continue breathing tx and Solu-Medrol 20 mg IV every 12 hours -continue daily PRN lasix 40mg IV -PT recommending SNF (she came from facility at [facility] and plan is to go back to [facility] with restorative therapy. However, she is still requiring a lot of O2 (on high flow NC) and pulmonary anticipating long term care social worker weaning and recommending LTACH -check daily labs Extended Emergency Contact Information Primary Emergency Contact: AMBIKA RICHARDS Mobile Relation: Daughter Preferred language: Citizen Of [place] [employer] Back Feeder needed? No Secondary Emergency Contact: LIONEL REYNOSO Mobile Relation: Son Preferred language: Citizen Of [place] [employer] [employer] Back Feeder needed? No Tate Givens MD Division of Hospitalist Medicine Inpatient Medical Services/[facility] [place] PAGER: Epic chat [1] No past medical history on file. [2] [3] amLODIPine, 5 mg, Oral, q24h cefTRIAXone, 1,000 mg, IntraVENous, q24h enoxaparin, 30 mg, SubCUTAneous, 2 times per day escitalopram, 10 mg, Oral, Nightly furosemide, 20 mg, Oral, BID ipratropium-albuterol, 1 ampule, Nebulization, q4h WA labetalol, 200 mg, Oral, q24h levothyroxine, 137 mcg, Oral, q24h methylPREDNISolone sod suc (PF), 20 mg, IntraVENous, q12h mirabegron ER, 25 mg, Oral, Daily pantoprazole, 40 mg, Oral, qAM AC potassium chloride CR, 20 mEq, Oral, q12h sodium chloride 0.9%, 10 mL, IntraVENous, 2 times per day sodium chloride 0.9%, 10 mL, IntraVENous, q8h stomahesive in petrolatum, , Topical, q8h traZODone, 50 mg, Oral, Nightly Hospitalist Progress Note 08/07/2024 [phone]: Please page me ([phone]) for patient care issues. [phone]: Please page [facility] Hospitalist for any issues. Subjective: Admit Date: 08/03/2024 PCP: No primary care provider on file. Room#: -255/[facility] A Interval History: Patient currently sitting up in chair again today on high flow NC O2. She admits to having a little sob this am. No chest pain. No abdominal pain. No nausea or vomiting and no fevers or chills. She does look overall comfortable but maybe a little sob. Adult diet Regular @[id number]@ 24HR INTAKE/OUTPUT: No intake or output data in the 24 hours ending 08/07/24 1307 Past Medical History: Medical History[1] LABS: CBC: Recent Labs 08/06/24 0233 08/07/24 0125 WBC 14.1* 12.1* RBC 4.49 4.86 HGB 13.0 14.1 HCT 39.6 42.1 MCV 88.2 86.6 RDW 13.2 13.5 PLT 160 153 BMP: Recent Labs 08/06/24 0233 08/07/24 0125 NA 135* 138 K 3.9 4.4 CL 95* 101 CO2 30 26 BUN 27* 28* CREATININE 0.84 0.79 GLUCOSE 123* 74* CALCIUM 10.3* 9.8 ANIONGAP 10 11 LIVER PROFILE: Recent Labs 08/06/24 0233 08/07/24 0125 AST 16 22 ALT 6 10 BILITOT 0.4 0.4 ALKPHOS 83 78 PROT 7.7 7.2 PT/INR: No results for input(s): PROTIME, INR in the last 72 hours. CARDIAC ENZYMES: No results for input(s): TROPONINI in the last 72 hours. Procalcitonin: No results found for: PROCAL COVID-19 PCR: No results for input(s): COVID19 in the last 72 hours. Objective: Vitals: BP 125/73 (BP Location: Right arm, Patient Position: Sitting) Pulse 85 Temp 36.8 C (98.3 F) (Temporal) Resp 18 Ht 5' (1.524 m) Wt 220 lb (99.8 kg) SpO2 94% BMI 42.97 kg/m Pulse Ox: SpO2 Av.6 % Min: 91 % Max: 97 % Supplemental O2: O2 Flow Rate (L/min): 8 L/min General appearance: No apparent distress, appears stated age, HEENT: Eyes: No scleral icterus Oral: Tongue is semi-moist Cardiovascular: S1/S2 heard, RRR, 3-4+ pitting leg edema Respiratory: Breath sounds decreased but clear Abdomen: Soft, non-tender, non-distended bowel sounds positive Musculoskeletal: No obvious deformities seen Skin: No visible rashes or lesions. Medications: Continuous Meds[2] Scheduled Meds[3] Assessment Acute, acute on chronic, unstable/uncontrolled chronic problems/diagnoses: # Acute COPD exacerbation -continue breathing treatments and started on IV steroids # Acute hypoxemic on chronic hypercapnic respiratory failure-continue high flow nasal cannula oxygen, wean as able. Pulmonary following. # H. Influenza Pneumonia - Continue rocephin # Rhinovirus infection - supportive tx # Pitting leg swelling, BNP elevated - given age and BMI, TTE has been ordered for further evaluation of LV and right heart function Stable chronic problems affecting care, new non-acute diagnoses: # Senile dementia with behavior # Chronic hypertension # Chronic hypothyroidism # GERD # COPD # Chronic back pain # Chronic diastolic heart failure # Osteoporosis # Hx of depression # Morbid obesity with JOCELIN and OHS # Hx of medical noncompliance. Plan -Pulmonary following -continue NC O2, wean as able -continue IV rocephin -continue breathing tx and Solu-Medrol 20 mg IV every 12 hours -give lasix 40mg IV once. -PT recommending SNF (she came from facility at [facility] and plan is to go back to [facility] with restorative therapy. However, she is still requiring a lot of O2 (on high flow NC) and pulmonary anticipating long-term weaning and recommending LTACH -check daily labs Extended Emergency Contact Information Primary Emergency Contact: AMBIKA RICHARDS Mobile Relation: Daughter Preferred language: Citizen [place] [employer] [employer] Back Feeder needed? No Secondary Emergency Contact: LIONEL REYNOSO Mobile Relation: Son Preferred language: Citizen Of [place] [employer] [employer] Back Feeder needed? No Tate Givens MD Division of Hospitalist Medicine Inpatient Medical Services/[facility] [place] PAGER: Epic chat [1] No past medical history on file. [2] [3] amLODIPine, 5 mg, Oral, q24h cefTRIAXone, 1,000 mg, IntraVENous, q24h enoxaparin, 30 mg, SubCUTAneous, 2 times per day escitalopram, 10 mg, Oral, Nightly furosemide, 20 mg, Oral, BID ipratropium-albuterol, 1 ampule, Nebulization, q4h WA labetalol, 200 mg, Oral, q24h levothyroxine, 137 mcg, Oral, q24h methylPREDNISolone sod suc (PF), 20 mg, IntraVENous, q12h mirabegron ER, 25 mg, Oral, Daily pantoprazole, 40 mg, Oral, qAM AC potassium chloride CR, 20 mEq, Oral, q12h sodium chloride 0.9%, 10 mL, IntraVENous, 2 times per day sodium chloride 0.9%, 10 mL, IntraVENous, q8h stomahesive in petrolatum, , Topical, q8h traZODone, 50 mg, Oral, Nightly Images from the original note were not included. PHYSICAL THERAPY [facility] Treatment Note Name/MRN: Emily Peralta ([id number]) Date of : 1940 Age: 83 y.o. Room/Bed: B2-255/B2-255 A Visit #: 2 out of 5 Discharge Recommendation: Correction Facility Equipment Needed: No Assessment Pt seated in recliner at initiation of physical therapy session. Pt was agreeable to seated exercises however reports she did not sleep well last night and is tired. Pt completed all exercises AROM. Pt reports she is limited by frequent coughing fits and feeling SOB when coughing. Increased recovery time between exercise sets. Pt will benefit from continued skilled PT to address current functional deficits. Recommend SNF. Subjective Patient agreeable to seated exercises. Pain: Pt denies any current pain. Medical Precautions: Droplet Proper PPE donned/doffed in accordance with facility standards. Fall Risk: Sotomayor Fall Risk Score: 85 (Low Risk) Sotomayor Fall Risk Score: 85 (High Risk) Precautions/Restrictions: Lines/Drains/Airways: 12L HFNC Fall Precautions Overall Cognitive Status: Exceptions - Attention span: attends with cues to redirect - Problem solving: assistance required to generate solutions and assistance required to implement solutions Family/Caregiver Present: none Objective Exercises Exercises Hip Flexion: 1 set / 15 reps B LE in sitting Hip Adduction: 1 set / 15 reps B LE in sitting Knee Long Arc Quad: 1 set / 15 reps B LE in sitting Ankle Pumps: 1 set / 15 reps B LE in sitting Comments: Exercises performed to improve overall muscle strength and activity tolerance. Verbal/visual cues for proper ROM and slow pace. Min encouragement to participate in exercises. Plan Continue acute PT per plan of care. Safety/Education Safety Safety Devices in place: All fall risk precautions in place, call light within reach, left in chair, patient at risk for falls, and no alarms engaged upon entry Restraints: No Education Education Given To: patient Education Provided: PT Role, PT Goals, Plan of Care, Home Exercise Program, and Benefits of Increasing Activity Education Method: Verbal and Demonstration Barriers to Learning: None Education Outcome: Verbalized Understanding, Demonstrated Understanding, and Continued Education Needed Outcome Measures AM-PAC AM-PAC Inpatient Mobility Raw Score (No Stairs) : 15 JH-HLM JH-HLM Score: Transferred to chair/commode Goals Patient Stated Goal: No goal stated Encounter Problems Encounter Problems (Active) Balance Patient will maintain dynamic standing balance for 3-5 minutes with SBA in order to demonstrate decreased risk of falling. (Not Addressed) Start: 08/04/24 Expected End: 08/11/24 Exercise Patient will complete lower extremity exercises for 1-2 sets / 5-10 reps in order to improve strength and activity tolerance for mobility. (Progressing) Start: 08/04/24 Expected End: 08/11/24 Mobility Patient will ambulate 15 feet with SBA and rolling walker in order to improve safety and independence with mobility. (Not Addressed) Start: 08/04/24 Expected End: 08/11/24 Transfers Patient will perform bed mobility with modified independence in order to improve independence and prepare for out of bed mobility. (Not Addressed) Start: 08/04/24 Expected End: 08/11/24 Patient will complete functional transfer with rolling walker with CGA in order to prepare for ambulation. (Not Addressed) Start: 08/04/24 Expected End: 08/11/24 Therapy Time Individual Co-treatment Time In 0957 Time Out 1010 Minutes 13 Timed Code Treatment Minutes: 13 Minutes (x1 ther ex) Calry Wilson PTA Cosigned by Nicole Carrasco PT at 08/07/2024 3:11 PM EDT Images from the original note were not included. [facility] [place] Pulmonary Medicine [address] [place] [id number] Patient - Emily Peralta, Age - 83 y.o. - 1940 Room Number - B2-243/B2-243 B Consulting - Tate Givens MD Primary Care Physician - No primary care provider on file. [id number] Date of Admission - 08/03/2024 4:21 PM Hospital Day - 3 Chief Complaint: shortness of breath Emily Peralta is a 83 y.o. female who pulmonary is following for acute on chronic hypoxemic respiratory failure, CAP Interval History No acute events overnight. Patient is a poor historian. She wants to be discharged. Still requiring 12 LPM salter cannula. She states her breathing overall is improved, still with occasional cough, no chest pain. Stable leg swelling. She is hemodynamically stable and in no acute distress. All other systems reviewed and negative unless otherwise stated in HPI. Objective Vitals: BP 136/65 Pulse 71 Temp (!) 35.5 C (95.9 F) (Temporal) Resp 18 Ht 5' (1.524 m) Wt 220 lb (99.8 kg) SpO2 93% BMI 42.97 kg/m Pulse Ox: SpO2 Av.8 % Min: 91 % Max: 95 % Supplemental O2: O2 Flow Rate (L/min): 10 L/min I/O 24HR INTAKE/OUTPUT: No intake or output data in the 24 hours ending 08/06/24 1157 Exam General appearance: Awake, alert, no acute distress. On 10 liters/min SC. HEENT: Normocephalic, atraumatic. No scleral icterus, no right/left eye discharge. Conjunctivae normal. Pupils equal round and reactive to light. Right external ear normal, Left external ear normal. No congestion. Mouth: mucous membranes moist. Pharynx, Oropharynx is clear. No oropharyngeal exudate. Neck: ROM normal, No thyromegaly. No cervical lymphadenopathy Cardiovascular: Regular rate and rhythm. Heart sounds normal. Negative for murmur, friction rub, or gallop. Pulmonary: Effort normal, no respiratory distress. No stridor. No wheezing. Abdomen: Soft, no distention, no abdominal tenderness. No guarding. No masses. Musculoskeletal: ROM normal. Skin: Warm and dry. Skin is not jaundiced. No rash Extremities: No clubbing or cyanosis. 2+ pitting lower extremity edema. Neurological: No focal deficits. Alert and oriented x person, place and time. Mental status is at baseline. No motor weakness. Psychiatric: Mood, behavior, thought content normal. Cooperative with exam. Medications Current Medications Scheduled Meds[1] PRN Mediations PRN Meds[2] IV Drips/Infusions Continuous Meds[3] Labs CBC Results from last 7 days Lab Units 08/06/24 0233 WBC AUTO 10*3/uL 14.1* HEMOGLOBIN g/dL 13.0 HEMATOCRIT % 39.6 PLATELETS 10*3/uL 160 BMP: Results from last 7 days Lab Units 08/06/24 0233 08/03/24 1712 SODIUM mmol/L 135* 136 POTASSIUM mmol/L 3.9 4.0 CHLORIDE mmol/L 95* 96* CO2 mmol/L 30 29 BUN mg/dL 27* 13 CREATININE mg/dL 0.84 0.79 GLUCOSE mg/dL 123* 90 CALCIUM mg/dL 10.3* 9.7 ABG: Results from last 7 days Lab Units 08/04/24 1135 SOURCE OF OXYGEN High Flow Oxygen Therapy (FiO2) LIVER PROFILE Results from last 7 days Lab Units 08/06/24 0233 08/03/24 1712 ALK PHOS U/L 83 85 BILIRUBIN TOTAL mg/dL 0.4 0.8 PROTEIN TOTAL g/dL 7.7 7.7 ALT U/L 6 <6 AST U/L 16 17 INR PTT No results found for: PTT Cultures Pneumonia PCR (08/04/24): Haemophilus influenzae, rhinovirus Radiology All relevant/recent imaging was personally reviewed by me. Please see official radiology report for details. CXR (08/03/24) Limited exam due to obesity and hypoinflation lungs and portable technique. There appears to be hypoinflation lungs with pulmonary vascular prominence with prominent interstitial markings with small area of infiltrate or atelectasis right lower lobe and possible left lung base. Advanced degenerative joint disease both shoulders Assessment Acute on chronic hypoxemic respiratory failure Chronic hypercarbic respiratory failure CAP due to Haemophilus influenzae Rhinovirus URI Possible asthma Trivial smoking history Morbid obesity Possible JOCELIN/OHS Recommendations CXR concerning for CAP involving the right lower lobe, pneumonia PCR results noted, agree with ceftriaxone, recommend total 7 days of antibiotics I question her diagnosis of COPD, she has a very trivial smoking history, it is possible she may have asthma, no wheezing on exam today, she is receiving scheduled methylprednisolone so will monitor this for now, OK to continue scheduled Duonebs, consider CT chest without contrast for further evaluation of the parenchyma if any clinical worsening VBG concerning for some component of chronic CO2 retention, possibly has underlying OHS, recommend against BiPAP nightly for now given significant O2 requirements, doubt she would be compliant with nocturnal PAP going forward Pitting leg swelling noted, BNP elevated given age and BMI, TTE has been ordered for further evaluation of LV and right heart function Wean supplemental O2 for goal SpO2 > 92% Pulmonary will continue to follow Artur Neri MD Pulmonary & Critical Care Medicine [facility] [1] amLODIPine, 5 mg, Oral, q24h cefTRIAXone, 1,000 mg, IntraVENous, q24h enoxaparin, 30 mg, SubCUTAneous, 2 times per day escitalopram, 10 mg, Oral, Nightly furosemide, 20 mg, Oral, BID ipratropium-albuterol, 1 ampule, Nebulization, q4h WA labetalol, 200 mg, Oral, q24h levothyroxine, 137 mcg, Oral, q24h methylPREDNISolone sod suc (PF), 20 mg, IntraVENous, q12h mirabegron ER, 25 mg, Oral, Daily pantoprazole, 40 mg, Oral, qAM AC potassium chloride CR, 20 mEq, Oral, q12h sodium chloride 0.9%, 10 mL, IntraVENous, 2 times per day stomahesive in petrolatum, , Topical, q8h traZODone, 50 mg, Oral, Nightly [2] PRN medications: albuterol, guaiFENesin, hydrOXYzine pamoate, perflutren protein A microsphere (Optison) 3 mL in sodium chloride (PF) 0.9 % 10 mL IV, polyethylene glycol (PEG) 3350, senna-docusate sodium, sodium chloride, sodium chloride 0.9%, stomahesive in petrolatum [3] Hospitalist Progress Note 08/06/2024 [phone]: Please page me ([phone]) for patient care issues. [phone]: Please page [facility] [place] night Hospitalist for any issues. Subjective: Admit Date: 08/03/2024 PCP: No primary care provider on file. Room#: B2-243/B2-243 B Interval History: No overnight issues. Patient patient currently sitting up in chair again today on high flow NC O2. She denies sob currently. No chest pain. She currently resides at a facility and states she has to get back. She does have known dementia already and has been repeating the same thing every single day about being discharged. I explained to her about her being on high flow nasal cannula oxygen and her current infection and she seemed more receptive today. Otherwise she denies any chest pain. No abdominal pain. No nausea or vomiting and no fevers or chills Adult diet Regular @[id number]@ 24HR INTAKE/OUTPUT: No intake or output data in the 24 hours ending 08/06/24 0937 Past Medical History: Medical History[1] LABS: CBC: Recent Labs 08/03/24171108/04/24 1135 08/06/24 0233 WBC 11.7* -- 14.1* RBC 4.57 -- 4.49 HGB 13.2 13.7 13.0 HCT 41.5 -- 39.6 MCV 90.8 -- 88.2 RDW 14.1 -- 13.2 PLT 141 -- 160 BMP: Recent Labs 08/03/24171108/06/24232 NA 136 135* K 4.0 3.9 CL 96* 95* CO2 29 30 BUN 13 27* CREATININE 0.79 0.84 GLUCOSE 90 123* CALCIUM 9.7 10.3* ANIONGAP 11 10 LIVER PROFILE: Recent Labs 08/03/24171108/06/24232 AST 17 16 ALT <6 6 BILITOT 0.8 0.4 ALKPHOS 85 83 PROT 7.7 7.7 PT/INR: No results for input(s): PROTIME, INR in the last 72 hours. CARDIAC ENZYMES: No results for input(s): TROPONINI in the last 72 hours. Procalcitonin: No results found for: PROCAL COVID-19 PCR: No results for input(s): COVID19 in the last 72 hours. Objective: Vitals: BP 136/65 Pulse 81 Temp (!) 35.5 C (95.9 F) (Temporal) Resp 20 Ht 5' (1.524 m) Wt 220 lb (99.8 kg) SpO2 95% BMI 42.97 kg/m Pulse Ox: SpO2 Av.8 % Min: 91 % Max: 95 % Supplemental O2: O2 Flow Rate (L/min): 10 L/min General appearance: No apparent distress, appears stated age, HEENT: Eyes: No scleral icterus Oral: Tongue is semi-moist Cardiovascular: S1/S2 heard, RRR, 3+ pitting leg edema Respiratory: Breath sounds decreased but clear Abdomen: Soft, non-tender, non-distended bowel sounds positive Musculoskeletal: No obvious deformities seen Skin: No visible rashes or lesions. Medications: Continuous Meds[2] Scheduled Meds[3] Assessment Acute, acute on chronic, unstable/uncontrolled chronic problems/diagnoses: # Acute COPD exacerbation -continue breathing treatments and started on IV steroids # Acute hypoxemic on chronic hypercapnic respiratory failure-continue high flow nasal cannula oxygen, wean as able. Pulmonary following. # H. Influenza Pneumonia - Continue rocephin # Rhinovirus infection - supportive tx # Pitting leg swelling, BNP elevated - given age and BMI, TTE has been ordered for further evaluation of LV and right heart function Stable chronic problems affecting care, new non-acute diagnoses: # Senile dementia with behavior # Chronic hypertension # Chronic hypothyroidism # GERD # COPD # Chronic back pain # Chronic diastolic heart failure # Osteoporosis # Hx of depression # Morbid obesity with JOCELIN and OHS # Hx of medical noncompliance. Plan -Pulmonary following -continue NC O2, wean as able -continue IV rocephin -continue breathing tx, but Solu-Medrol was decreased to 20 mg IV every 12 hours -Echo pending (ordered due to 3-4 leg edema). -PT recommending SNF (she came from facility at [facility] and plan is to go back to [facility] with restorative therapy. However, she is still requiring a lot of O2 (on high flow NC) and pulmonary anticipating long-term weaning and recommending LTACH -check daily labs Extended Emergency Contact Information Primary Emergency Contact: AMBIKA RICHARDS Mobile Relation: Daughter Preferred language: Citizen Of [place] Back Feeder needed? No Secondary Emergency Contact: LIONEL REYNOSO Mobile Relation: Son Preferred language: Citizen Of [place] Back Feeder needed? No Tate Givens MD Division of Hospitalist Medicine Inpatient Medical Services/[facility] [place] PAGER: Epic chat [1] No past medical history on file. [2] [3] amLODIPine, 5 mg, Oral, q24h cefTRIAXone, 1,000 mg, IntraVENous, q24h enoxaparin, 30 mg, SubCUTAneous, 2 times per day escitalopram, 10 mg, Oral, Nightly furosemide, 20 mg, Oral, BID ipratropium-albuterol, 1 ampule, Nebulization, q4h WA labetalol, 200 mg, Oral, q24h levothyroxine, 137 mcg, Oral, q24h methylPREDNISolone sod suc (PF), 20 mg, IntraVENous, q12h mirabegron ER, 25 mg, Oral, Daily pantoprazole, 40 mg, Oral, qAM AC potassium chloride CR, 20 mEq, Oral, q12h sodium chloride 0.9%, 10 mL, IntraVENous, 2 times per day stomahesive in petrolatum, , Topical, q8h traZODone, 50 mg, Oral, Nightly Found pt. On 12L HFNC saturation 97% at this time. Turned pt. Down to 10L HFNC and saturation was 93% prior to her breathing tx. Sent a secure chat to physician that 10L is 60% FIO2 which per our protcol is the max oxygen for the floors. Images from the original note were not included. PHYSICAL THERAPY [facility] Treatment Note Name/MRN: Emily Peralta ([id number]) Date of : 1940 Age: 83 y.o. Room[facility]: [facility] B Visit #: 1 out of 5 Discharge Recommendation: Correction Facility Equipment Needed: No Assessment Pt continues to make good overall progress towards established therapy goals this date. Remains limited by fatigue, weakness and short term memory loss limiting ability to perform multi part tasks. Pt completed STS transfers with fww at Min Ax1, Gait training with fww completed at Min Ax1. Pt tolerated all activity well and gave good overall effort. Pt will continue to benefit from skilled therapy services during acute medical stay to improve upon presenting deficits prior to discharge to SNF. Subjective Pt pleasant and agreeable to PT session. Pt made note of short term memory loss and requires frequent redirection to task at hand to perform. RN cleared pt for session. Vitals On 12L O2 via HFNC Spo2 93-96% during all mobility Pain: Pt denies any current pain. Medical Precautions: Droplet Proper PPE donned/doffed in accordance with facility standards. Fall Risk: Sotomayor Fall Risk Score: 60 (Low Risk) Sotomayor Fall Risk Score: 60 (High Risk) Precautions/Restrictions: Lines/Drains/Airways: 12L HFNC Fall Precautions Overall Cognitive Status: Exceptions - Following commands: follows one step commands with increased time, follows one step commands with repetition, follows multi-step commands with increased time, and follows multi-step commands with repetition - Attention span: difficulty attending to directions - Memory: decreased short term memory - Problem solving: assistance required to generate solutions, assistance required to implement solutions, assistance required to identify errors made, and assistance required to correct errors made - Sequencing: requires cues for some Overall Orientation Status: Oriented x4 Family/Caregiver Present: none Objective Bed Mobility Pt up in chair upon arrival Transfers/Mobility Sit to stand: Min Assist Stand to sit: Min Assist Pt completed STS x8 with emphasis on proper hand placement, sequencing of trunk and BLEs, body mechanics and overall pacing of activity. Fair return noted. Pt was able to complete rapid 5x STS in 23 seconds. Moderate SOB noted with activity requiring increased time for recovery between bouts of transfer training. Increased time and effort needed to complete transfer training. Device(s) used: Front wheeled walker Ambulation Ambulation 1 Assistive device(s) used: Front wheeled walker Assist level: Min Assist Distance (ft): 30ft x2 Quality of gait: reciprocal stepping, B foot clearance, shuffling, uneven step length, wide TSERING, slow moses, postural sway, path deviations, instability through all phases Pt completed gait training with fww at Min Ax1 and cues for directional assist, device management, obstacle avoidance, body mechanics and overall pacing. Fair return noted. No overt LOB. Fair overall tolerance despite moderate SOB between bouts in seated positioning. Plan Continue acute PT per plan of care. Safety/Education Safety Safety Devices in place: All fall risk precautions in place, call light within reach, left in chair, gait belt, patient at risk for falls, nurse notified, and no alarms engaged upon entry Restraints: N/A Education Education Given To: patient Education Provided: PT Role, PT Goals, Gait Training, Plan of Care, Transfer Training, Energy Conservation, IADL Safety, Orientation, Equipment, Fall Prevention Education, Discharge Recommendations, and Benefits of Increasing Activity Education Method: Verbal, Demonstration, and Teach Back Barriers to Learning: Cognition Education Outcome: Verbalized Understanding, Demonstrated Understanding, and Continued Education Needed Outcome Measures AM-PAC AM-PAC Inpatient Mobility Raw Score (No Stairs) : 15 JH-HLM -HLM Score: Walked 25 ft or more (i.e. walked outside of room) Goals Patient Stated Goal: None stated Encounter Problems Encounter Problems (Active) Balance Patient will maintain dynamic standing balance for 3-5 minutes with SBA in order to demonstrate decreased risk of falling. (Progressing) Start: 08/04/24 Expected End: 08/11/24 Exercise Patient will complete lower extremity exercises for 1-2 sets / 5-10 reps in order to improve strength and activity tolerance for mobility. (Not Addressed) Start: 08/04/24 Expected End: 08/11/24 Mobility Patient will ambulate 15 feet with SBA and rolling walker in order to improve safety and independence with mobility. (Progressing) Start: 08/04/24 Expected End: 08/11/24 Transfers Patient will perform bed mobility with modified independence in order to improve independence and prepare for out of bed mobility. (Not Addressed) Start: 08/04/24 Expected End: 08/11/24 Patient will complete functional transfer with rolling walker with CGA in order to prepare for ambulation. (Progressing) Start: 08/04/24 Expected End: 08/11/24 Therapy Time Individual Co-treatment Time In 1419 Time Out 1442 Minutes 23 Timed Code Treatment Minutes: 23 Minutes (gait x1, ther act x1) Chuck Ruvalcaba PT Hospitalist Progress Note 08/05/2024 [phone]: Please page me ([phone]) for patient care issues. [phone]: Please page [facility] [place] night Hospitalist for any issues. Subjective: Admit Date: 08/03/2024 PCP: No primary care provider on file. Room#: B2-243/B2-243 B Interval History: No overnight issues. Patient patient currently sitting up in chair. She says she is breathing okay but admits to being a little short of breath. Currently no chest pain. She is tell me she needs to get back to her facility? She denies any fevers or chills. No abdominal pain. No nausea or vomiting. Adult diet Regular @[id number]@ 24HR INTAKE/OUTPUT: Intake/Output Summary (Last 24 hours) at 08/05/2024 1234 Last data filed at 08/04/2024 1815 Gross per 24 hour Intake 360 ml Output -- Net 360 ml Past Medical History: Medical History[1] LABS: CBC: Recent Labs 08/03/24 1712 08/04/24 1135 WBC 11.7* -- RBC 4.57 -- HGB 13.2 13.7 HCT 41.5 -- MCV 90.8 -- RDW 14.1 -- PLT 141 -- BMP: Recent Labs 08/03/24 1712 NA 136 K 4.0 CL 96* CO2 29 BUN 13 CREATININE 0.79 GLUCOSE 90 CALCIUM 9.7 ANIONGAP 11 LIVER PROFILE: Recent Labs 08/03/24 1712 AST 17 ALT <6 BILITOT 0.8 ALKPHOS 85 PROT 7.7 PT/INR: No results for input(s): PROTIME, INR in the last 72 hours. CARDIAC ENZYMES: No results for input(s): TROPONINI in the last 72 hours. Procalcitonin: No results found for: PROCAL COVID-19 PCR: No results for input(s): COVID19 in the last 72 hours. Objective: Vitals: BP 108/67 (BP Location: Right arm, Patient Position: Sitting) Pulse 71 Temp 36.6 C (97.9 F) (Temporal) Resp 18 Ht 5' (1.524 m) Wt 220 lb (99.8 kg) SpO2 92% BMI 42.97 kg/m Pulse Ox: SpO2 Av.8 % Min: 91 % Max: 96 % Supplemental O2: O2 Flow Rate (L/min): 12 L/min General appearance: No apparent distress, appears stated age, HEENT: Eyes: No scleral icterus Oral: Tongue is semi-moist Cardiovascular: S1/S2 heard, RRR, 3-4 pitting leg edema Respiratory: Breath sounds decreased, sounds a little tight with end expiratory wheezing Abdomen: Soft, non-tender, non-distended bowel sounds positive Musculoskeletal: No obvious deformities seen Skin: No visible rashes or lesions. Medications: Continuous Meds[2] Scheduled Meds[3] Assessment Acute, acute on chronic, unstable/uncontrolled chronic problems/diagnoses: # Acute COPD exacerbation -continue breathing treatments and started on IV steroids # Acute hypoxemic on chronic hypercapnic respiratory failure-continue nasal cannula oxygen, wean as able # H. Influenza Pneumonia - Continue rocephin # Rhinovirus infection - supportive tx # Pitting leg swelling, BNP elevated - given age and BMI, TTE has been ordered for further evaluation of LV and right heart function Stable chronic problems affecting care, new non-acute diagnoses: # Senile dementia with behavior # Chronic hypertension # Chronic hypothyroidism # GERD # COPD # Chronic back pain # Chronic diastolic heart failure # Osteoporosis # Hx of depression # Morbid obesity with JOCELIN and OHS # Hx of medical noncompliance. Plan -Pulmonary following -continue NC O2, wean as able -continue IV rocephin -continue breathing tx, will start Solu-Medrol 40 mg IV every 8 hours -Echo pending (3-4 leg edema). -check daily labs Extended Emergency Contact Information Primary Emergency Contact: AMBIKA RICHARDS Mobile Relation: Daughter Preferred language: Citizen Of [place] [employer] [employer] Back Feeder needed? No Secondary Emergency Contact: LIONEL REYNOSO Mobile Relation: Son Preferred language: Citizen Of [place] [employer] [employer] Back Feeder needed? No Tate Givens MD Division of Hospitalist Medicine Inpatient Medical Services/[facility] [place] PAGER: Epic chat [1] No past medical history on file. [2] [3] amLODIPine, 5 mg, Oral, q24h cefTRIAXone, 1,000 mg, IntraVENous, q24h enoxaparin, 30 mg, SubCUTAneous, 2 times per day escitalopram, 10 mg, Oral, Nightly furosemide, 20 mg, Oral, BID ipratropium-albuterol, 1 ampule, Nebulization, q4h WA labetalol, 200 mg, Oral, q24h levothyroxine, 137 mcg, Oral, q24h methylPREDNISolone sod suc (PF), 40 mg, IntraVENous, q8h mirabegron ER, 25 mg, Oral, Daily pantoprazole, 40 mg, Oral, qAM AC potassium chloride CR, 20 mEq, Oral, q12h sodium chloride 0.9%, 10 mL, IntraVENous, 2 times per day traZODone, 50 mg, Oral, Nightly Images from the original note were not included. [facility] [place] Pulmonary Medicine [address] [place] [id number] Patient - Emily Peralta, Age - 83 y.o. - 1940 Room Number - B2-243/B2-243 B Consulting - Tate Givens MD Primary Care Physician - No primary care provider on file. Date of Admission - 08/03/2024 4:21 PM Hospital Day - 2 Chief Complaint: shortness of breath Emily Peralta is a 83 y.o. female who pulmonary is following for acute on chronic hypoxemic respiratory failure, CAP Interval History No acute events overnight. Patient is a poor historian. She wants to be discharged. Still requiring 12 LPM salter cannula. She states her breathing overall is improved, still with occasional cough, no chest pain. Stable leg swelling. She is hemodynamically stable and in no acute distress. All other systems reviewed and negative unless otherwise stated in HPI. Objective Vitals: BP 108/72 (BP Location: Left arm, Patient Position: Sitting) Pulse 87 Temp 36.1 C (97 F) (Temporal) Resp 18 Ht 5' (1.524 m) Wt 220 lb (99.8 kg) SpO2 91% BMI 42.97 kg/m Pulse Ox: SpO2 Av.6 % Min: 90 % Max: 96 % Supplemental O2: O2 Flow Rate (L/min): 12 L/min I/O 24HR INTAKE/OUTPUT: Intake/Output Summary (Last 24 hours) at 08/05/2024 1010 Last data filed at 08/04/2024 1815 Gross per 24 hour Intake 360 ml Output -- Net 360 ml Exam General appearance: Awake, alert, no acute distress. On 12 liters/min SC. HEENT: Normocephalic, atraumatic. No scleral icterus, no right/left eye discharge. Conjunctivae normal. Pupils equal round and reactive to light. Right external ear normal, Left external ear normal. No congestion. Mouth: mucous membranes moist. Pharynx, Oropharynx is clear. No oropharyngeal exudate. Neck: ROM normal, No thyromegaly. No cervical lymphadenopathy Cardiovascular: Regular rate and rhythm. Heart sounds normal. Negative for murmur, friction rub, or gallop. Pulmonary: Effort normal, no respiratory distress. No stridor. No wheezing. Abdomen: Soft, no distention, no abdominal tenderness. No guarding. No masses. Musculoskeletal: ROM normal. Skin: Warm and dry. Skin is not jaundiced. No rash Extremities: No clubbing or cyanosis. 2+ pitting lower extremity edema. Neurological: No focal deficits. Alert and oriented x person, place and time. Mental status is at baseline. No motor weakness. Psychiatric: Mood, behavior, thought content normal. Cooperative with exam. Medications Current Medications Scheduled Meds[1] PRN Mediations PRN Meds[2] IV Drips/Infusions Continuous Meds[3] Labs CBC Results from last 7 days Lab Units 08/04/24 1135 08/03/24 1712 WBC AUTO 10*3/uL -- 11.7* HEMOGLOBIN g/dL -- 13.2 HEMOGLOBIN BG g/dl 13.7 -- HEMATOCRIT % -- 41.5 PLATELETS 10*3/uL -- 141 BMP: Results from last 7 days Lab Units 08/03/24 1712 SODIUM mmol/L 136 POTASSIUM mmol/L 4.0 CHLORIDE mmol/L 96* CO2 mmol/L 29 BUN mg/dL 13 CREATININE mg/dL 0.79 GLUCOSE mg/dL 90 CALCIUM mg/dL 9.7 ABG: Results from last 7 days Lab Units 08/04/24 1135 SOURCE OF OXYGEN High Flow Oxygen Therapy (FiO2) LIVER PROFILE Results from last 7 days Lab Units 08/03/24 1712 ALK PHOS U/L 85 BILIRUBIN TOTAL mg/dL 0.8 PROTEIN TOTAL g/dL 7.7 ALT U/L <6 AST U/L 17 INR PTT No results found for: PTT Cultures Pneumonia PCR (08/04/24): Haemophilus influenzae, rhinovirus Radiology All relevant/recent imaging was personally reviewed by me. Please see official radiology report for details. CXR (08/03/24) Limited exam due to obesity and hypoinflation lungs and portable technique. There appears to be hypoinflation lungs with pulmonary vascular prominence with prominent interstitial markings with small area of infiltrate or atelectasis right lower lobe and possible left lung base. Advanced degenerative joint disease both shoulders Assessment Acute on chronic hypoxemic respiratory failure Chronic hypercarbic respiratory failure CAP due to Haemophilus influenzae Rhinovirus URI Possible asthma Trivial smoking history Morbid obesity Possible JOCELIN/OHS Recommendations CXR concerning for CAP involving the right lower lobe, pneumonia PCR results noted, agree with ceftriaxone, recommend total 7 days of antibiotics I question her diagnosis of COPD, she has a very trivial smoking history, it is possible she may have asthma, no wheezing on exam today, she is receiving scheduled methylprednisolone so will monitor this for now, OK to continue scheduled Duonebs, consider CT chest without contrast for further evaluation of the parenchyma if any clinical worsening VBG concerning for some component of chronic CO2 retention, possibly has underlying OHS, recommend against BiPAP nightly for now given significant O2 requirements, doubt she would be compliant with nocturnal PAP going forward Pitting leg swelling noted, BNP elevated given age and BMI, TTE has been ordered for further evaluation of LV and right heart function Wean supplemental O2 for goal SpO2 > 92% Pulmonary will continue to follow Artur Neri MD Pulmonary & Critical Care Medicine [facility] [1] amLODIPine, 5 mg, Oral, q24h cefTRIAXone, 1,000 mg, IntraVENous, q24h enoxaparin, 30 mg, SubCUTAneous, 2 times per day escitalopram, 10 mg, Oral, Nightly furosemide, 20 mg, Oral, BID ipratropium-albuterol, 1 ampule, Nebulization, q4h WA labetalol, 200 mg, Oral, q24h levothyroxine, 137 mcg, Oral, q24h methylPREDNISolone sod suc (PF), 40 mg, IntraVENous, q8h mirabegron ER, 25 mg, Oral, Daily pantoprazole, 40 mg, Oral, qAM AC potassium chloride CR, 20 mEq, Oral, q12h sodium chloride 0.9%, 10 mL, IntraVENous, 2 times per day traZODone, 50 mg, Oral, Nightly [2] PRN medications: albuterol, hydrOXYzine pamoate, perflutren protein A microsphere (Optison) 3 mL in sodium chloride (PF) 0.9 % 10 mL IV, polyethylene glycol (PEG) 3350, senna-docusate sodium, sodium chloride, sodium chloride 0.9% [3] Hospitalist Progress Note 08/04/2024 [phone]: Please page me ([phone]) for patient care issues. [phone]: Please page [facility] [place] night Hospitalist for any issues. Subjective: Admit Date: 08/03/2024 PCP: No primary care provider on file. Room#: B2-243/B2-243 B Interval History: No overnight issues. Patient when asked how she is doing, replied horrible because she rather be home in her bed instead of here in the hospital as she does not like the hospital bed. Currently she denies chest pain but admits to still being sob, it is a little bit at rest but worse with exertion. No abdominal pain, nausea, vomiting. No fevers or chills. Adult diet Regular @[id number]@ 24HR INTAKE/OUTPUT: Intake/Output Summary (Last 24 hours) at 08/04/2024 1149 Last data filed at 08/04/2024 0942 Gross per 24 hour Intake 50 ml Output 150 ml Net -100 ml Past Medical History: Medical History[1] LABS: CBC: Recent Labs 08/03/24 1712 08/04/24 1135 WBC 11.7* -- RBC 4.57 -- HGB 13.2 13.7 HCT 41.5 -- MCV 90.8 -- RDW 14.1 -- PLT 141 -- BMP: Recent Labs 08/03/24 1712 NA 136 K 4.0 CL 96* CO2 29 BUN 13 CREATININE 0.79 GLUCOSE 90 CALCIUM 9.7 ANIONGAP 11 LIVER PROFILE: Recent Labs 08/03/24 1712 AST 17 ALT <6 BILITOT 0.8 ALKPHOS 85 PROT 7.7 PT/INR: No results for input(s): PROTIME, INR in the last 72 hours. CARDIAC ENZYMES: No results for input(s): TROPONINI in the last 72 hours. Procalcitonin: No results found for: PROCAL COVID-19 PCR: No results for input(s): COVID19 in the last 72 hours. Objective: Vitals: BP 146/75 Pulse 91 Temp 36.2 C (97.1 F) (Temporal) Resp 24 Ht 5' (1.524 m) Wt 220 lb (99.8 kg) SpO2 92% BMI 42.97 kg/m Pulse Ox: SpO2 Av.3 % Min: 75 % Max: 95 % Supplemental O2: O2 Flow Rate (L/min): 15 L/min General appearance: No apparent distress, appears stated age, HEENT: Eyes: No scleral icterus Oral: Tongue is semi-moist Cardiovascular: S1/S2 heard, RRR Respiratory: Breath sounds decreased, sounds a little tight with end expiratory wheezing Abdomen: Soft, non-tender, non-distended bowel sounds positive Musculoskeletal: No obvious deformities seen Skin: No visible rashes or lesions. Medications: Continuous Meds[2] Scheduled Meds[3] Assessment Acute, acute on chronic, unstable/uncontrolled chronic problems/diagnoses: # Acute COPD exacerbation -continue breathing treatments and started on IV steroids # Acute hypoxemic, hypercapnic respiratory failure-continue nasal cannula oxygen, wean as able # Possible Pneumonia - PNA pcr pending. Viral pcr negative. Sputum cx pending. Urine legionella strep pending. Continue rocephin and azith. Stable chronic problems affecting care, new non-acute diagnoses: # Senile dementia with behavior # Chronic hypertension # Chronic hypothyroidism # GERD # COPD # Chronic back pain # Chronic diastolic heart failure # Osteoporosis # Hx of depression # Morbid obesity # Hx of medical noncompliance. Plan -resume home meds -continue NC O2, wean as able -continue IV rocephin and azith. PNA pcr pending. Viral pcr negative. Sputum cx pending. Urine legionella strep pending. -continue breathing tx, will start Solu-Medrol 40 mg IV every 8 hours -check daily labs Extended Emergency Contact Information Primary Emergency Contact: AMBIKA RICHARDS Mobile Relation: Daughter Preferred language: Citizen Of [place] [employer] Back Feeder needed? No Secondary Emergency Contact: LIONEL REYNOSO Mobile Relation: Son Preferred language: Citizen Of [place] [employer] Back Feeder needed? No Tate Givens MD Division of Hospitalist Medicine Inpatient Medical Services/[facility] [place] PAGER: Epic chat [1] No past medical history on file. [2] [3] azithromycin, 500 mg, IntraVENous, q24h cefTRIAXone, 1,000 mg, IntraVENous, q24h enoxaparin, 30 mg, SubCUTAneous, 2 times per day ipratropium-albuterol, 1 ampule, Nebulization, q4h WA sodium chloride 0.9%, 10 mL, IntraVENous, 2 times per day Images from the original note were not included. PHYSICAL THERAPY [facility] Initial Evaluation Name/MRN: Emily Peralta ([id number]) Evaluation Date: 08/04/2024 Date of : 1940 Admission Date: 08/03/2024 4:21 PM Age: 83 y.o. Room[facility]Bed: [facility] B Discharge Recommendation: Correction Facility Equipment Needed: No Assessment IMPRESSION: Pt is a 83 y.o. female admitted to the ED 08/03 for SOB and COPD exacerbation. Pt was in a SNF receiving assistance for bathing and chair follow for ambulation with FWW prior to admittance. Pt is currently SBA supine to sit with max verbal cues, Mod A sit to stand, Min A side stepping to the left, and Mod A sit to supine with assist to swing BLE into bed. Pt is limited by pain, fatigue, and endurance. Pt would benefit from acute PT treatment until discharge to address these deficits. Recommend SNF. Admitting Diagnosis: SOB and COPD exacerbation Prognosis: fair Performance Deficits /Impairments: Increased Pain, Decreased Functional Mobility, Decreased Strength, Decreased Safety Awareness, Decreased Endurance, and Decreased Balance Decision Making: Medium Complexity Subjective Pt was agreeable to therapy Okayed for therapy per RN Pain: 0-10 pain scale: 7/10 Location: shoulder and knee Past Medical History: Medical History[1] Past Surgical History: Surgical History[2] Admission Diagnosis: Patient Active Problem List Diagnosis Date Noted COPD exacerbation (HCC) 08/03/2024 Medical Precautions: Droplet Proper PPE donned/doffed in accordance with facility standards. Fall Risk: Sotomayor Fall Risk Score: 35 (Low Risk) Sotomayor Fall Risk Score: 35 (Medium Risk) Precautions/Restrictions: Lines/Drains/Airways: 15 L NC Family/Caregiver Present: none Overall Cognitive Status: Exceptions - Following commands: follows one step commands with increased time and follows one step commands with repetition - Problem solving: assistance required to identify errors made and assistance required to correct errors made - Initiation: requires cues for all - Sequencing: requires cues for all Overall Orientation Status: Oriented to Place, Oriented to Person, Disoriented to Situation, and Disoriented to Time Pt able to state she is here because she could not breath. Vision: Not Assessed Hearing: normal Social/Functional History Patient admitted from SNF. Assistive Equipment: front wheeled walker Pt requires assistance for bathing and chair follow for ambulation with FWW. Not able to obtain full social/functional history due to increased agitation with questioning. Prior Level of Function Prior Level of ADL Function: Required Assist Prior Level of Mobility: Required Assist; Device: Front wheeled walker with chair follow Prior Level of Transfers: Required Assist Not able to obtain full PLOF due to increased agitation with questioning. Objective Lower Extremity Assessment AROM: WFL Strength: Exceptions: decreased strength with functional mobility Balance: Balance During Session: Posture: fair Sitting - Static: SBA Sitting - Dynamic: Contact Guard Standing - Static: Min Assist Standing - Dynamic: Mod Assist Pt is Mod A for dynamic standing balance due to fatigue and endurance. Bed Mobility: Supine to sit: SBA Sit to supine: Mod Assist Pt is SBA for supine to sit however required Max verbal cues for sequencing, initiation, and hand placement. Pt is Mod A for sit to supine with assistance from SPT to swing BLE into bed. Transfers Sit to stand: Mod Assist Stand to sit: Mod Assist Side step: Min Assist Pt is a Mod A for sit <> stand from EOB with FWW. Verbal cues provided for sequencing, hand placement, and upright posture. Pt is Min A for side step x3 to the left. Verbal cues provided for sequencing of steps with FWW. Ambulation Did not assess this session. Vitals: Pt on 15 L NC. Repeatedly checked O2 throughout session. Pt rested at 92%. 89% after taking lateral steps from EOB. Came back up to 92% within 1-2 minutes seated/supine. Outcome Measures AM-PAC How much HELP from another person do you currently need Turning from your back to your side while in a flat bed without using bedrails?: A Little Moving from lying on your back to sitting on the side of a flat bed without using bedrails?: A Little Moving to and from a bed to a chair (including a wheelchair)?: A Lot Standing up from a chair using your arms (wheelchair or bedside chair)?: A Lot Walking in a hospital room?: A Lot Stair climbing assessed?: No AM-PAC Inpatient Mobility Raw Score (No Stairs) : 12 JH-HLM -HL Score: Static standing (1 or more minutes) Plan Pt would benefit from skilled acute PT services to address Strengthening, Gait Training, Balance Training, Functional Mobility Training, Endurance Training, Safety Education and Training, Pain Management, and Positioning. Frequency: 5 visits during current hospital admission or until additional recommendations are made Barriers: Pain, Impaired balance, Lower extremity weakness, Decreased endurance, Limited safety awareness, and Confusion Safety/Education Safety Safety Devices in place: All fall risk precautions in place, call light within reach, left in bed, bed alarm in place, gait belt, patient at risk for falls, nurse notified, and no alarms engaged upon entry Restraints: No Education Education Given To: patient Education Provided: PT Role, PT Goals, Transfer Training, Equipment, Fall Prevention Education, and Benefits of Increasing Activity Education Method: Verbal Barriers to Learning: None Education Outcome: Continued Education Needed Goals Patient Stated Goal: decrease pain Encounter Problems Encounter Problems (Active) Balance Patient will maintain dynamic standing balance for 3-5 minutes with SBA in order to demonstrate decreased risk of falling. Start: 08/04/24 Expected End: 08/11/24 Exercise Patient will complete lower extremity exercises for 1-2 sets / 5-10 reps in order to improve strength and activity tolerance for mobility. Start: 08/04/24 Expected End: 08/11/24 Mobility Patient will ambulate 15 feet with SBA and rolling walker in order to improve safety and independence with mobility. Start: 08/04/24 Expected End: 08/11/24 Transfers Patient will perform bed mobility with modified independence in order to improve independence and prepare for out of bed mobility. Start: 08/04/24 Expected End: 08/11/24 Patient will complete functional transfer with rolling walker with CGA in order to prepare for ambulation. Start: 08/04/24 Expected End: 08/11/24 Therapy Time Individual Co-Treatment Co-Evaluation Time In 0832 Time Out 0850 Minutes 18 ZOE Wagoner Patient's Physical Therapy Plan of Care supervision is transferred to a [facility] Physical Therapist. Goals and/or treatment plan was established in collaboration with patient/family/other representatives. [1] No past medical history on file. [2] No past surgical history on file. Cosigned by Jocelyn Tian PT at 08/04/2024 1:18 PM EDT Associated attestation - Jocelyn Tian, PT - 08/04/2024 1:18 PM EDT I certify that I was present during the entire session and guided the care given by the Student Physical Therapist. Cosign: Jocelyn Tian PT documented in this encounter [facility] 08-11-2024 Note Formatting of this n ote might be different from the original. Discharge med list transmitted to [facility] TO [facility] via [facility] per TCC request. [facility] 08-11-2024 Note Formatting of this n ote might be different from the original. Discharge med list transmitted to [facility] via [facility] per TCC request. [facility] 08-11-2024 Note Formatting of this n ote might be different from the original. Rounds this am DCP: DC today [employer] explosive operator supervisor time scheduled for 430 Facility notified RN notified with time and P# for report MAIL HANDLERS SUPERVISOR tasked to send DC packet and MAR to acility [facility] 08-11-2024 Note Formatting of this n ote might be different from the original. Rounds this am DCP: DC today [employer] explosive operator supervisor time scheduled for 430 Facility notified RN notified with time and P# for report MAIL HANDLERS SUPERVISOR tasked to send DC packet and MAR to acility [facility] 08-11-2024 Miscellaneous Notes Discharge med list transmitted to [facility] via [facility] per TCC request. Rounds this am DCP: DC today [employer] explosive operator supervisor time scheduled for 430 Facility notified RN notified with time and P# for report MAIL HANDLERS SUPERVISOR tasked to send DC packet and MAR to rust Problem: Knowledge Deficit Goal: Patient/family/caregiver demonstrates understanding of disease process, treatment plan, medications, and discharge instructions Outcome: Progressing Problem: Potential for Compromised Skin Integrity Goal: Skin Integrity is Maintained or Improved Outcome: Progressing Problem: Urinary Incontinence Goal: Perineal skin integrity is maintained or improved Outcome: Progressing COPD Navigator Note Introduced myself and explained my role. Reviewed Managing COPD at Home handout. Patient sitting upright in chair on 5L O2 with SpO2 93%. RA at baseline. Patient states she is feeling a little better today but not yet at her baseline. Breath sounds bilateral diminished. She complains of a lingering strong congested nonproductive cough. Patient instructed on deep breathing and coughing techniques. Patient has not established with COPD Clinic. No PFTs . Reviewed home respiratory medications. Currently ordered: Albuterol MDI every 4 hours as needed, Qvar twice daily, Duoneb aerosols every 4 hours as needed. Patient has access to all of their medications and uses them as prescribed. Patient able to verbalize proper routine and schedule for inhaler use. Instructed on proper inhaler technique. Discussed Maintenance and Rescue medications. Recommend: Pulmonary Consult Patient agreeable to assistance with scheduling hospital follow-up with pulmonary. Problem: Knowledge Deficit Goal: Patient/family/caregiver demonstrates understanding of disease process, treatment plan, medications, and discharge instructions 08/10/2024144 by Sophy Olmos RN Outcome: Progressing 08/10/2024 0140 by Sophy Olmos RN Outcome: Progressing Problem: Potential for Compromised Skin Integrity Goal: Skin Integrity is Maintained or Improved 08/10/2024 014 by Sophy Olmos RN Outcome: Progressing 08/10/2024 014 by Sophy Olmos RN Outcome: Progressing Goal: Nutritional status is improving 08/10/2024144 by Sophy Olmos RN Outcome: Progressing 08/10/2024 014 by Sophy Olmos RN Outcome: Progressing Problem: Urinary Incontinence Goal: Perineal skin integrity is maintained or improved 08/10/2024 014 by Sophy Olmos RN Outcome: Progressing 08/10/2024 0140 by Sophy Olmos RN Outcome: Progressing Problem: Problem Interventions Goal: Promote nutritional intake 08/10/2024144 by Sophy Olmos RN Outcome: Progressing 08/10/2024 014 by Sophy Olmos RN Outcome: Progressing Problem: Knowledge Deficit Goal: Patient/family/caregiver demonstrates understanding of disease process, treatment plan, medications, and discharge instructions Outcome: Progressing Problem: Potential for Compromised Skin Integrity Goal: Skin Integrity is Maintained or Improved Outcome: Progressing Goal: Nutritional status is improving Outcome: Progressing Problem: Urinary Incontinence Goal: Perineal skin integrity is maintained or improved Outcome: Progressing Problem: Problem Interventions Goal: Promote nutritional intake Outcome: Progressing Problem: Knowledge Deficit Goal: Patient/family/caregiver demonstrates understanding of disease process, treatment plan, medications, and discharge instructions Outcome: Progressing Problem: Potential for Compromised Skin Integrity Goal: Skin Integrity is Maintained or Improved Outcome: Progressing Goal: Nutritional status is improving Outcome: Progressing Problem: Urinary Incontinence Goal: Perineal skin integrity is maintained or improved Outcome: Progressing Problem: Problem Interventions Goal: Promote nutritional intake Outcome: Progressing Sent updated notes to return back to [facility] via [facility] per [facility] request. Await review and response regarding ability to accept. TCC notified. Care Management Progress Note -Pt remains on 2E. -Pulmonology following. -O2 now down to 5L. -Receiving IV ATB and Lasix. -Since pt is now down to 5L O2, discharge plan at this time is back to [facility] with restorative therapy. Facility made aware. -technical sales manager to follow and assist as needed. Length of Stay (Days): 6 GMLOS: 4 Problem: Knowledge Deficit Goal: Patient/family/caregiver demonstrates understanding of disease process, treatment plan, medications, and discharge instructions 08/09/2024206 by Sophy Olmos RN Outcome: Progressing 08/09/2024154 by Sophy Olmos RN Outcome: Progressing Problem: Potential for Compromised Skin Integrity Goal: Skin Integrity is Maintained or Improved 08/09/2024206 by Sophy Olmos RN Outcome: Progressing 08/09/2024154 by Sophy Olmos RN Outcome: Progressing Goal: Nutritional status is improving 08/09/2024206 by Sophy Olmos RN Outcome: Progressing 08/09/2024154 by Sophy Olmos RN Outcome: Progressing Problem: Urinary Incontinence Goal: Perineal skin integrity is maintained or improved 08/09/2024 020 by Sophy Olmos RN Outcome: Progressing 08/09/2024 015 by Sophy Olmos RN Outcome: Progressing Problem: Problem Interventions Goal: Promote nutritional intake 08/09/2024 020 by Sophy Olmos RN Outcome: Progressing 08/09/2024 015 by Sophy Olmos RN Outcome: Progressing Problem: Knowledge Deficit Goal: Patient/family/caregiver demonstrates understanding of disease process, treatment plan, medications, and discharge instructions Outcome: Progressing Problem: Potential for Compromised Skin Integrity Goal: Skin Integrity is Maintained or Improved Outcome: Progressing Goal: Nutritional status is improving Outcome: Progressing Problem: Urinary Incontinence Goal: Perineal skin integrity is maintained or improved Outcome: Progressing Problem: Problem Interventions Goal: Promote nutritional intake Outcome: Progressing Problem: Knowledge Deficit Goal: Patient/family/caregiver demonstrates understanding of disease process, treatment plan, medications, and discharge instructions Outcome: Progressing Problem: Potential for Compromised Skin Integrity Goal: Skin Integrity is Maintained or Improved Outcome: Progressing Problem: Urinary Incontinence Goal: Perineal skin integrity is maintained or improved Outcome: Progressing Problem: Problem Interventions Goal: Promote nutritional intake Outcome: Progressing Problem: Knowledge Deficit Goal: Patient/family/caregiver demonstrates understanding of disease process, treatment plan, medications, and discharge instructions 08/08/2024 06 by Sophy Olmos RN Outcome: Progressing 08/08/2024 0553 by Sophy Olmos RN Outcome: Progressing Problem: Potential for Compromised Skin Integrity Goal: Skin Integrity is Maintained or Improved 08/08/2024 0625 by Sophy Olmos RN Outcome: Progressing 08/08/2024 0553 by Sophy Gichui, RN Outcome: Progressing Goal: Nutritional status is improving 08/08/2024624 by Sophy Olmos RN Outcome: Progressing 08/08/2024 0553 by Sophy Olmos RN Outcome: Progressing Problem: Urinary Incontinence Goal: Perineal skin integrity is maintained or improved 08/08/2024624 by Sophy Olmos RN Outcome: Progressing 08/08/2024 0553 by Sophy Olmos RN Outcome: Progressing Problem: Problem Interventions Goal: Promote nutritional intake 08/08/2024624 by Sophy Olmos RN Outcome: Progressing 08/08/2024 0553 by Sophy Olmos RN Outcome: Progressing Problem: Knowledge Deficit Goal: Patient/family/caregiver demonstrates understanding of disease process, treatment plan, medications, and discharge instructions Outcome: Progressing Problem: Potential for Compromised Skin Integrity Goal: Skin Integrity is Maintained or Improved Outcome: Progressing Goal: Nutritional status is improving Outcome: Progressing Problem: Urinary Incontinence Goal: Perineal skin integrity is maintained or improved Outcome: Progressing Problem: Problem Interventions Goal: Promote nutritional intake Outcome: Progressing Problem: Knowledge Deficit Goal: Patient/family/caregiver demonstrates understanding of disease process, treatment plan, medications, and discharge instructions Outcome: Progressing Problem: Potential for Compromised Skin Integrity Goal: Skin Integrity is Maintained or Improved Outcome: Progressing Problem: Urinary Incontinence Goal: Perineal skin integrity is maintained or improved Outcome: Progressing Problem: Problem Interventions Goal: Promote nutritional intake Outcome: Progressing Problem: Knowledge Deficit Goal: Patient/family/caregiver demonstrates understanding of disease process, treatment plan, medications, and discharge instructions Outcome: Progressing Problem: Potential for Compromised Skin Integrity Goal: Skin Integrity is Maintained or Improved Outcome: Progressing Goal: Nutritional status is improving Outcome: Progressing Problem: Urinary Incontinence Goal: Perineal skin integrity is maintained or improved Outcome: Progressing Problem: Problem Interventions Goal: Promote nutritional intake Outcome: Progressing Care Management Progress Note Spoke with pt's daughter Ambika over the phone to discuss DC planning. Informed her that pt is still requiring high flow O2 10 Liters and she cannot go back to ECF with that high O2 requirement. Informed daughter that we have [facility] ) looking at pt and will reevaluate her next week to see if she is still appropriate to go there after DC if still needing high flow O2. Ambika okay with [facility] following. Will continue to follow. Length of Stay (Days): 3 GMLOS: 4 Care Management Progress Note Called daughter Ambika Overholt @ [phone] to discuss DC planning. Informed her that therapy is recommending SNF at DC. Informed her that this TCC that her insurance is OON with therapy services at [facility] and that family would have to private pay. Daughter states she would like her to go back with restorative therapy at [facility]. Liaison at [facility] updated on daughter's plan to go back to [facility]CF with restorative therapy. Will continue to follow. Length of Stay (Days): 2 GMLOS: 3.4 Problem: Knowledge Deficit Goal: Patient/family/caregiver demonstrates understanding of disease process, treatment plan, medications, and discharge instructions Outcome: Progressing Problem: Potential for Compromised Skin Integrity Goal: Skin Integrity is Maintained or Improved Outcome: Progressing Goal: Nutritional status is improving Outcome: Progressing Problem: Urinary Incontinence Goal: Perineal skin integrity is maintained or improved Outcome: Progressing Problem: Knowledge Deficit Goal: Patient/family/caregiver demonstrates understanding of disease process, treatment plan, medications, and discharge instructions Outcome: Not Progressing Problem: Potential for Compromised Skin Integrity Goal: Skin Integrity is Maintained or Improved Outcome: Progressing Problem: Potential for Compromised Skin Integrity Goal: Nutritional status is improving Outcome: Progressing Problem: Urinary Incontinence Goal: Perineal skin integrity is maintained or improved Outcome: Progressing Problem: Knowledge Deficit Goal: Patient/family/caregiver demonstrates understanding of disease process, treatment plan, medications, and discharge instructions Outcome: Not Progressing Care Management Progress Note Chart reviewed. Pt admitted to for c/o SOB and COPD exacerbation. Pt on high flow O2. Pulmonary consulted and following. Pt continues on IV antibiotics and IV steroids. Met with pt earlier at bedside and she told this TCC that she is from [facility]. This TCC called daughter Ambika Richards @ [phone] and she confirmed that that is where pt is from and plans for her to return at [place]. Daughter states pt sees MD at [facility] and does not have her own PCP. Also pt gets meds supplied form [facility]. PT saw and is recommending SNF at [place]. Informed daughter and she said that pt's insurance is OON with [facility] and they would have to private pay for SNF services. This TCC called [facility] liaison and she confirmed this as well. I will reach back out to daughter to discuss her options, pt may have to go back with [facility] PT/OT possibly? Will continue to follow for [place] needs. Length of Stay (Days): 1 GMLOS: No GMLOS Documented Referral placed to return back to [facility] via [facility] per TCC request. Await review and response regarding ability to accept. TCC notified. documented in this encounter [facility] 08-11-2024 Note Hospitalist Discharg e Summary Emily Peralta : 1940 Admit date: 08/03/2024 Discharge date: 08/11/2024 Admitting Physician: Tate Givens MD Primary Care Physician: No primary care provider on file. 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 Breathing treatments, steroids, abx. Pulmonology following. Baseline patient is on 2L via NC, requiring 5-6, wean as tolerated. Home medications reviewed and resumed as indicated. Labs and vitals reviewed and stable. Patient to have PT/OT at [facility] on discharge. She is slowly weaned to baseline 2L via NC. Cleared by pulmonology for discharge. Labs and vitals stabilized. She is to follow up with PCP and pulmonology outpatient in 1-2 weeks. She is discharged to SNF in improved and stable condition on 08/11/24. Consults: IP CONSULT TO COPD NAVIGATOR IP CONSULT TO PULMONARY REHAB IP CONSULT TO PULMONOLOGY IP CONSULT TO WOUND PREVENTION INPATIENT CONSULT TO WOUND CARE PROVIDERS IP CONSULT TO DIETITIAN Discharge Instructions: Diet: Adult diet Regular Activity: as tolerated Recommended Outpatient Tests: Disposition: Patient discharged in stable condition to SNF LABS: CBC: Recent Labs 08/09/24 0319 08/10/24 0453 08/11/24 0620 WBC 9.3 9.2 7.5 RBC 4.87 4.64 4.78 HGB 14.1 13.3 13.7 HCT 43.0 41.1 42.1 MCV 88.3 88.6 88.1 RDW 13.6 13.8 13.9 PLT 146 133* 114* BMP: Recent Labs 08/09/24 0319 08/10/24 0453 08/11/24 0620 NA 138 137 137 K 4.5 4.2 4.1 CL 99 101 100 CO2 29 27 27 BUN 24* 24* 18 CREATININE 0.83 0.80 0.75 GLUCOSE 118* 112 78* CALCIUM 9.9 9.4 9.6 ANIONGAP 10 9 10 LIVER PROFILE: Recent Labs 08/09/2431808/10/24452 AST 11 17 ALT 6 9 BILITOT 0.3 0.3 ALKPHOS 78 78 PROT 7.3 6.7 PT/INR: No results for input(s): PROTIME, INR in the last 72 hours. CARDIAC ENZYMES: No results for input(s): TROPONINI in the last 72 hours. Procalcitonin: No results found for: PROCAL COVID-19 PCR: No results for input(s): COVID19 in the last 72 hours. Vitals: BP 117/73 Pulse 85 Temp 36.6 ?C (97.8 ?F) (Temporal) Resp 16 Ht 5' (1.524 m) Wt 220 lb (99.8 kg) SpO2 92% BMI 42.97 kg/m? Pulse Ox: SpO2 Av.7 % Min: 92 % Max: 96 % Supplemental O2: O2 Flow Rate (L/min): 2 L/min General appearance: No apparent distress, appears stated age, obese elderly female in NAD Respiratory: Course diminished lung sounds BL Cardiovascular: S1 and S2 present, no murmur detected Abdomen: Soft, non-tender, non-distended Skin: Skin color, texture, turgor normal. No rashes or lesions. Neurologic: grossly non-focal. Discharge Medications: Medication List START taking these medications predniSONE 10 MG tablet Commonly known as: Deltasone Take 2 tablets (20 mg) by mouth daily for 2 days, THEN 1 tablet (10 mg) daily for 2 days. Do not start before August 12, 2024. Start taking on: August 12, 2024 CHANGE how you take these medications ipratropium-albuterol 0.5-2.5 mg/3 mL nebulizer solution Commonly known as: Duo-Neb Take 3 mL by nebulization every 4 hours as needed (cough). What changed: how to take this CONTINUE taking these medications acetaminophen 325 MG tablet Commonly known as: Tylenol Albuterol Sulfate 108 (90 Base) MCG/ACT aerosol powder amLODIPine 5 MG tablet Commonly known as: Norvasc baclofen 10 MG tablet Commonly known as: Lioresal beclomethasone HFA 40 MCG/ACT inhaler Commonly known as: Qvar benzonatate 100 MG capsule Commonly known as: Tessalon bisacodyl 10 MG suppository Commonly known as: Dulcolax Esomeprazole Magnesium 20 MG tablet delayed-release furosemide 20 MG tablet Commonly known as: Lasix hydrOXYzine HCl 25 MG tablet Commonly known as: Atarax Imodium A-D 2 MG tablet Generic drug: loperamide labetalol 200 MG tablet Commonly known as: Normodyne levothyroxine 137 MCG tablet Commonly known as: Synthroid, Levoxyl Lexapro 10 MG tablet Generic drug: escitalopram Myrbetriq 25 MG 24 hr tablet Generic drug: mirabegron ER potassium chloride CR 20 MEQ ER tablet Commonly known as: K-Tab Senexon-S 8.6-50 MG tablet Generic drug: senna-docusate traZODone 50 MG tablet Commonly known as: Desyrel Zofran 4 MG tablet Generic drug: ondansetron STOP taking these medications cefdinir 300 MG capsule Commonly known as: Omnicef traMADol 50 MG tablet Commonly known as: Ultram Where to Get Your Medications These med (more content not included)... [facility] 08-11-2024 Hospital course Narrative Hospitalist Discharge Summary Emily Peralta : 1940 Admit date: 08/03/2024 Discharge date: 08/11/2024 Admitting Physician: Tate Givens MD Primary Care Physician: No primary care provider on file. 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 Breathing treatments, steroids, abx. Pulmonology following. Baseline patient is on 2L via NC, requiring 5-6, wean as tolerated. Home medications reviewed and resumed as indicated. Labs and vitals reviewed and stable. Patient to have PT/OT at [facility]TC on discharge. She is slowly weaned to baseline 2L via NC. Cleared by pulmonology for discharge. Labs and vitals stabilized. She is to follow up with PCP and pulmonology outpatient in 1-2 weeks. She is discharged to SNF in improved and stable condition on 08/11/24. Consults: IP CONSULT TO COPD NAVIGATOR IP CONSULT TO PULMONARY REHAB IP CONSULT TO PULMONOLOGY IP CONSULT TO WOUND PREVENTION INPATIENT CONSULT TO WOUND CARE PROVIDERS IP CONSULT TO DIETITIAN Discharge Instructions: Diet: Adult diet Regular Activity: as tolerated Recommended Outpatient Tests: Disposition: Patient discharged in stable condition to SNF LABS: CBC: Recent Labs 08/09/2431808/10/2445208/11/24 0620 WBC 9.3 9.2 7.5 RBC 4.87 4.64 4.78 HGB 14.1 13.3 13.7 HCT 43.0 41.1 42.1 MCV 88.3 88.6 88.1 RDW 13.6 13.8 13.9 PLT 146 133* 114* BMP: Recent Labs 08/09/2431808/10/24 0453 08/11/24 0620 NA 138 137 137 K 4.5 4.2 4.1 CL 99 101 100 CO2 29 27 27 BUN 24* 24* 18 CREATININE 0.83 0.80 0.75 GLUCOSE 118* 112 78* CALCIUM 9.9 9.4 9.6 ANIONGAP 10 9 10 LIVER PROFILE: Recent Labs 08/09/2431808/10/24 0453 AST 11 17 ALT 6 9 BILITOT 0.3 0.3 ALKPHOS 78 78 PROT 7.3 6.7 PT/INR: No results for input(s): PROTIME, INR in the last 72 hours. CARDIAC ENZYMES: No results for input(s): TROPONINI in the last 72 hours. Procalcitonin: No results found for: PROCAL COVID-19 PCR: No results for input(s): COVID19 in the last 72 hours. Vitals: BP 117/73 Pulse 85 Temp 36.6 C (97.8 F) (Temporal) Resp 16 Ht 5' (1.524 m) Wt 220 lb (99.8 kg) SpO2 92% BMI 42.97 kg/m Pulse Ox: SpO2 Av.7 % Min: 92 % Max: 96 % Supplemental O2: O2 Flow Rate (L/min): 2 L/min General appearance: No apparent distress, appears stated age, obese elderly female in NAD Respiratory: Course diminished lung sounds BL Cardiovascular: S1 and S2 present, no murmur detected Abdomen: Soft, non-tender, non-distended Skin: Skin color, texture, turgor normal. No rashes or lesions. Neurologic: grossly non-focal. Discharge Medications: Medication List START taking these medications predniSONE 10 MG tablet Commonly known as: Deltasone Take 2 tablets (20 mg) by mouth daily for 2 days, THEN 1 tablet (10 mg) daily for 2 days. Do not start before August 12, 2024. Start taking on: August 12, 2024 CHANGE how you take these medications ipratropium-albuterol 0.5-2.5 mg/3 mL nebulizer solution Commonly known as: Duo-Neb Take 3 mL by nebulization every 4 hours as needed (cough). What changed: how to take this CONTINUE taking these medications acetaminophen 325 MG tablet Commonly known as: Tylenol Albuterol Sulfate 108 (90 Base) MCG/ACT aerosol powder amLODIPine 5 MG tablet Commonly known as: Norvasc baclofen 10 MG tablet Commonly known as: Lioresal beclomethasone HFA 40 MCG/ACT inhaler Commonly known as: Qvar benzonatate 100 MG capsule Commonly known as: Tessalon bisacodyl 10 MG suppository Commonly known as: Dulcolax Esomeprazole Magnesium 20 MG tablet delayed-release furosemide 20 MG tablet Commonly known as: Lasix hydrOXYzine HCl 25 MG tablet Commonly known as: Atarax Imodium A-D 2 MG tablet Generic drug: loperamide labetalol 200 MG tablet Commonly known as: Normodyne levothyroxine 137 MCG tablet Commonly known as: Synthroid, Levoxyl Lexapro 10 MG tablet Generic drug: escitalopram Myrbetriq 25 MG 24 hr tablet Generic drug: mirabegron ER potassium chloride CR 20 MEQ ER tablet Commonly known as: K-Tab Senexon-S 8.6-50 MG tablet Generic drug: senna-docusate traZODone 50 MG tablet Commonly known as: Desyrel Zofran 4 MG tablet Generic drug: ondansetron STOP taking these medications cefdinir 300 MG capsule Commonly known as: Omnicef traMADol 50 MG tablet Commonly known as: Ultram Where to Get Your Medications These medications were sent to [facility] [address] [facility] [address] Hours: Friday to Friday 10 am to 6 pm predniSONE 10 MG tablet Information about where to get these medications is not yet available Ask your nurse or doctor about these medications ipratropium-albuterol 0.5-2.5 mg/3 mL nebulizer solution Recommended Follow-up: PCP and pulmonology outpatient in 1-2 weeks. @[email or web address]@ Complexity of Follow up: [] Moderate Complexity: follow up within 7-14 calendar days (48124) [x] Severe Complexity: follow up within 7 calendar days (03775) Follow up Testing, Pending results or Referrals at Transitional Care Visit: [x] yes [] no Instructions to MA: Please call patient on day after discharge (must document patient contacted within 2 business days of discharge). Follow up questions for MA: 1. Did you get medications filled and taking them as instructed from discharge? 2. Are you following your discharge instructions from your hospital stay? 3. Please confirm patient is scheduled for a follow up appointment within the above time frame. Signed: Helen Wan DO Division of Hospitalist Medicine Inpatient Medical Services/[facility] [place] 08/11/2024, 12:53 PM Total time Spent on Discharge: 32 minutes documented in this encounter [facility] 08-11-2024 Hospital Discharge instructions Nancy Barnes RN - 08/11/2024 12:51 PM EDT Images from the original note were not included. Continuity of Care Form Patient Name: Emily Peralta : 1940 Admit date: 08/03/2024 Discharge date: 08/11/2024 Code Status Order: DNR-CCA Advance Directives: Y Admitting Physician: Tate Givens MD PCP: No primary care provider on file. Discharging Nurse: Tereso Matta RN Discharging Hospital Unit/Room#: B2-255/B2-255 A Discharging Unit Emergency Contact: Extended Emergency Contact Information Primary Emergency Contact: AMBIKA RICHARDS Mobile Relation: Daughter Preferred language: Citizen [place] Layup Line Back Feeder needed? No Secondary Emergency Contact: LIONEL REYNOSO Mobile Relation: Son Preferred language: Citizen Of [place] Back Feeder needed? No Past Surgical History: No past surgical history on file. Immunization History: Immunization History Administered Date(s) Administered Moderna SARS-CoV-2 Vaccination 02/28/2021 Active Problems: Medical Problems Problem List * (Principal) COPD exacerbation (HCC) Isolation/Infection: No active isolations No active infections Nurse Assessment: Last Vital Signs: BP 117/73 Pulse 85 Temp 36.6 C (97.8 F) (Temporal) Resp 16 Ht 5' (1.524 m) Wt 220 lb (99.8 kg) SpO2 92% BMI 42.97 kg/m Last documented pain score (0-10 scale): Last Weight: Wt Readings from Last 1 Encounters: 08/06/24 220 lb (99.8 kg) Mental Status: MALATHI Patient Mental Status: oriented, alert, thought processes intact, and has history of dementia/forgetful IV Access: MALATHI IV Access: None Nursing Mobility/ADLs: Walking Minimal assistance Transfer Minimal assistance Bathing Minimal assistance Dressing Minimal assistance Toileting Minimal assistance Feeding Independent Elevator Erector Helper Independent Med Delivery no Wound Care Documentation and Therapy: Wound/Incision 08/04/24 Pressure Injury Buttock Right;Medial (Active) Site Assessment Dry;[place];Intact 08/10/242041 Sanam-Wound Assessment Blanchable erythema 08/10/242041 Wound Length (cm) 1 cm 08/04/241529 Wound Width (cm) 0.3 cm 08/04/241529 Wound Surface Area (cm^2) 0.24 cm^2 08/04/24 1530 Odor None 08/10/242041 Drainage Amount None 08/10/242041 Treatments Pharmaceutical agent 08/10/242041 Primary Dressing Moisture barrier 08/10/242041 Number of days: 6 Elimination: Continence: Bowel: yes Bladder: yes Urinary Catheter: None Colostomy/Ileostomy/Ileal Conduit: None Date of Last BM: 08/11/2024 Intake/Output Summary (Last 24 hours) at 08/11/2024 1251 Last data filed at 08/11/2024 1029 Gross per 24 hour Intake -- Output 500 ml Net -500 ml I/O last 3 completed shifts: In: 240 (2.4 mL/kg) [P.O.:240] Out: 875 (8.8 mL/kg) [Urine:875 (0.2 mL/kg/hr)] Weight: 99.8 kg Safety Concerns: at risk for falls Impairments/Disabilities: vision and hearing Nutrition Therapy: Current Nutrition Therapy: Oral diet: general Routes of Feeding: oral Liquids: thin liquids Daily Fluid Restriction: no Last Modified Barium Swallow with Video (Video Swallowing Test): not done Treatments at the Time of Hospital Discharge: Respiratory Treatments: albuterol neb q4 PRN Oxygen Therapy: is on oxygen at 2 L/min per nasal cannula. Ventilator: No ventilator support Rehab Therapies: physical therapy and occupational therapy Weight Bearing Status/Restrictions: no restriction Other Medical Equipment (for information only, NOT a DME order): bedside commode and walker Other Treatments: n/a Patient's personal belongings (please select all that are sent with patient): julianna MCKINLEY SIGNATURE: MANAGEMENT/SOCIAL WORK SECTION Inpatient Status Date: 08/03 [facility] [address] [place] [address] Dialysis Facility (if applicable) Name: Address: Dialysis Schedule: Phone: Fax: Hull Drafter/Field Applications Specialist signature: ICIAN SECTION Name: Emily Peralta Prognosis: excellent Condition at Discharge: stable Rehab Potential (if transferring to Rehab): excellent Recommended Labs or Other Treatments After Discharge: none The individual is being admitted to a nursing facility directly from an [facility] or a unit of a [facility] that is not operated by or licensed by [facility] under section 5119.14 or 5160-3-15.1 5 The individual requires the level of services provided by a nursing facility for the condition for which he or she was treated in the hospital and, Physician Certification: I certify the above information and transfer of Emily Peralta is necessary for the continuing treatment of the diagnosis listed and that she requires fdc facility for less than 30 days. Update Admission H&P: No change in H&P PHYSICIAN SIGNATURE: documented in this encounter [facility] 08-11-2024 Note [facility] Wound Care Progress Note Emily Peralta AGE: 83 y.o. GENDER: female : 1940 Subjective: HISTORY of PRESENT ILLNESS HPI Emily Peralta is a 83 y.o. female who presents for a wound care follow up. HPI: Ms. Peralta is a 83 y.o. female with past medical history significant for COPD. Patient presented to the emergency room from fdc facility for shortness of breath. Patient admitted with COPD. Patient reports always has soreness to buttock area. Denies any treatment. Wound Care consulted for pressure injury right buttock. Patient sitting up in bedside recliner chair sleeping at time of visit. ET mix noted at bedside. Treatment completed. Patient denies any further needs. New photo obtained and is in media tab. PAST MEDICAL HISTORY Medical History[1] PAST SURGICAL HISTORY Surgical History[2] FAMILY HISTORY Family History[3] SOCIAL HISTORY Social History[4] ALLERGIES Allergies[5] MEDICATIONS Medications Ordered Prior to Encounter[6] REVIEW OF SYSTEMS Pertinent items are noted in HPI. Objective: BP 123/78 (BP Location: Right arm, Patient Position: Sitting) Pulse 88 Temp 36.8 ?C (98.2 ?F) (Temporal) Resp 20 Ht 1.524 m (5') Wt 99.8 kg (220 lb) SpO2 93% BMI 42.97 kg/m? PHYSICAL EXAM General appearance: in no apparent distress, well developed and well nourished, and alert, obese Skin: warm and dry Pulmonary: Normal effort, no respiratory distress, no cyanosis Right buttock: 1.0cmx0.3cmxUTD. Blanchable pink tissue noted. No openings. No drainage. Periwound fragile with dry peeling skin. Improving 08/11/24 LABS CBC: Lab Results Component Value Date WBC 7.5 08/11/2024 HGB 13.7 08/11/2024 HCT 42.1 08/11/2024 MCV 88.1 08/11/2024 PLT 114 (L) 08/11/2024 BMP: Lab Results Component Value Date NA 137 08/11/2024 K 4.1 08/11/2024 CL 100 08/11/2024 CO2 27 08/11/2024 BUN 18 08/11/2024 CREATININE 0.75 08/11/2024 PT/INR: No results found for: PROTIME, INR Prealbumin: No results found for: PREALBUMIN Albumin:No components found for: LABALBU Sed Rate:No results found for: SEDRATE Micro: No components found for: BC Assessment/Plan: Nursing staff to perform dressing change: Right buttock: Pressure Injury (DTI) - Improving - Clean with soap and water, apply ET mix then leave LISA TID and PRN - Reposition q2hrs - Incontinent checks q2hrs - Waffle cushion while in chair Nutritional support Wound Care to follow Recommend to follow up at [facility] Outpatient wound care center after hospital discharge. Any questions or concerns please secure chat [facility] wound/ostomy. Thank you for the consult! I personally obtained the quinn and critical portions of the history and physical exam. I reviewed the labs, imaging studies, and electronic medical record. I reviewed the chart documentation and discussed the patient with treatment team members. I have edited the note to reflect my clinical findings and my assessment and plan. Please note, the time of this note does not reflect the time I saw this patient today, but the time of this documentaton. Portions of this note including HPI, ROS, impression/plan, and examination may have been copied forward from admission to today as to provide important historical information essential in contributing to medical decision making. Documentation has been reviewed and edited as necessary to support clinical decision making for today's visit and to reflect my own independent evaluation of this patient. Decision making for today's visit and to reflect my own independent evaluation of this patient. [1] No past medical history on file. [2] No past surgical history on file. [3] No family history on file. [4] Social History Tobacco Use Smoking status: Never Smokeless tobacco: Never [5] Allergies Allergen Reactions Morphine Hives Other Reaction(s): HIVES, ITCHING , NAUSEA Aspartame Codeine Duloxetine Unknown Lorazepam Oxycodone Wound Dressing Adhesive [6] No current facility-administered medications on file prior to encounter. Current Outpatient Medications on File Prior to Encounter Medication Sig Dispense Refill acetaminophen (Tylenol) 325 MG tablet Take 325 mg by mouth every 8 hours. Albuterol Sulfate 108 (90 Base) MCG/ACT aerosol powder Inhale 2 puffs every 4 hours as needed (SOB/ Wheezing). amLODIPine (Norvasc) 5 MG tablet Take 5 mg by mouth Every 24 hours. baclofen (Lioresal) 10 MG tablet Take 10 mg by mouth every 8 hours. beclomethasone HFA (Qvar) 40 MCG/ACT inhaler Inhale 40 mcg every 12 hours. benzonatate (Tessalon) 100 MG capsule Take 100 mg by mouth 3 times daily as needed for cough. bisacodyl (Dulcolax) 10 MG suppository Insert 10 mg into the rectum Daily as needed for constipation. [] (more content not included)... [facility] 08-10-2024 Plan of care note Problem: Knowledge Deficit Goal: Patient/family/caregiver demonstrates understanding of disease process, treatment plan, medications, and discharge instructions Outcome: Progressing Problem: Potential for Compromised Skin Integrity Goal: Skin Integrity is Maintained or Improved Outcome: Progressing Problem: Urinary Incontinence Goal: Perineal skin integrity is maintained or improved Outcome: Progressing [facility] 08-10-2024 Note Hospitalist Progress Note 08/10/2024 [phone]: Please page me ([phone]) for patient care issues. [phone]: Please page [facility] night Hospitalist for any issues. Subjective: Admit Date: 08/03/2024 PCP: No primary care provider on file. Room#: B2-255/B2-255 A Interval History: patient admitted for SOB and acute COPD exacerbation. No overnight issues. Complaints reported by patient: endorses dry cough, denies fevers ,chills , sweats. Adult diet Regular 24HR INTAKE/OUTPUT: Intake/Output Summary (Last 24 hours) at 08/10/2024 1143 Last data filed at 08/10/2024 0900 Gross per 24 hour Intake 1050 ml Output 1575 ml Net -525 ml Past Medical History: Medical History[1] LABS: CBC: Recent Labs 08/08/2431208/09/2431808/10/24 0453 WBC 7.3 9.3 9.2 RBC 4.73 4.87 4.64 HGB 13.6 14.1 13.3 HCT 41.9 43.0 41.1 MCV 88.6 88.3 88.6 RDW 13.7 13.6 13.8 PLT 124* 146 133* BMP: Recent Labs 08/08/2431208/09/2431808/10/24 0453 NA 139 138 137 K 4.7 4.5 4.2 CL 100 99 101 CO2 29 29 27 BUN 21 24* 24* CREATININE 0.80 0.83 0.80 GLUCOSE 118* 118* 112 CALCIUM 9.8 9.9 9.4 ANIONGAP 10 10 9 LIVER PROFILE: Recent Labs 08/08/2431208/09/2431808/10/24 0453 AST 16 11 17 ALT 9 6 9 BILITOT 0.3 0.3 0.3 ALKPHOS 78 78 78 PROT 7.5 7.3 6.7 PT/INR: No results for input(s): PROTIME, INR in the last 72 hours. CARDIAC ENZYMES: No results for input(s): TROPONINI in the last 72 hours. Procalcitonin: No results found for: PROCAL COVID-19 PCR: No results for input(s): COVID19 in the last 72 hours. Objective: Vitals: BP 135/78 (BP Location: Right arm, Patient Position: Lying) Pulse 84 Temp 36.8 ?C (98.2 ?F) (Temporal) Resp 19 Ht 5' (1.524 m) Wt 220 lb (99.8 kg) SpO2 93% BMI 42.97 kg/m? Pulse Ox: SpO2 Av.9 % Min: 92 % Max: 93 % Supplemental O2: O2 Flow Rate (L/min): 5 L/min General appearance: No apparent distress, appears stated age, obese elderly female in NAD Respiratory: Course diminished lung sounds BL . No wheezing. Cardiovascular: S1 and S2 present, no murmur detected Abdomen: Soft, non-tender, non-distended Skin: Skin color, texture, turgor normal. No rashes or lesions. Neurologic: grossly non-focal. Medications: Continuous Meds[2] Scheduled Meds[3] Assessment Acute COPD Exacerbation Acute on chronic hypoxic hypercapnic respiratory failure Acute URI with rhinovirus Acute PNA with haemophilus influenzae Baseline on 2L via NC. Wean as tolerated Breathing treatments, steroids, abx Pulmonology following Mild HFpEF, LVEF of 60% Echo reviewed and stable PRN lasix Chronic senile dementia HTN Hypothyroidism GERD COPD Chronic back pain Osteoporosis Hx of depression Morbid obesity HSA OHS Hx of medical noncompliance Medical Decision Making 08/10/24: Patient with acute COPD Exacerbation, found to be positive for acute URI with rhinovirus and positive PNA for haemophilus influenzae. Breathing treatments, steroids, abx. Pulmonology following. Baseline patient is on 2L via NC, requiring 5-6, wean as tolerated. Home medications reviewed and resumed as indicated. Labs and vitals reviewed and stable. Patient to have PT/OT at LTC on discharge. Goal O2 requirements of 4L via NC. CBC and BMP in the AM. -DVT prophylaxis: [x] Lovenox [] Heparin [] SCDs [x] Encourage ambulation [] Already on Anticoagulation Anticipated Discharge - Date - 08/11/24 - Location - Home - Pending the following - weaning O2 Toxic drug monitoring/narrow therapeutic index drug monitoring : # Drug name : # Route administered : # Method of monitoring : Extended Emergency Contact Information Primary Emergency Contact: IRVINAMBIKA Vigil Mobile Relation: Daughter Preferred language: Citizen Of [place] Layup Line Back Feeder needed? No Secondary Emergency Contact: LIONEL REYNOSO Mobile Relation: Son Preferred language: Citizen Of [place] Lay[place] Line Back Feeder needed? No Helen Wan DO Division of Hospitalist Medicine Inpatient Medical Services/[facility] [place] PAGER: Epic chat [1] No past medical history on file. [2] [3] amLODIPine, 5 mg, Oral, q24h cephalexin, 1,000 mg, Oral, q8h enoxaparin, 30 mg, SubCUTAneous, 2 times per day escitalopram, 10 mg, Oral, Nightly furosemide, 20 mg, Oral, BID ipratropium-albuterol, 1 ampule, Nebulization, q4h WA labetalol, 200 mg, Oral, q24h levothyroxine, 137 mcg, Oral, q24h mirabegron ER, 25 mg, Oral, Daily pantoprazole, 40 mg, Oral, qAM AC potassium chloride CR, 20 mEq, Oral, q12h predniSONE, 20 mg, Oral, Daily Followed by [START ON 08/12/2024] predniSONE, 10 mg, Oral, Daily sodium chloride 0.9%, 10 mL, IntraVENous, 2 times per day sodium chloride 0.9%, 10 mL, IntraVENous, q8h stomahesive in petrolatum, , Topical, q8h traZODone, 50 mg, Oral, Nightly [facility] 08-10-2024 Note Formatting of this n ote might be different from the original. COPD Navigator Note Introduced myself and explained my role. Reviewed Managing COPD at Home handout. Patient sitting upright in chair on 5L O2 with SpO2 93%. RA at baseline. Patient states she is feeling a little better today but not yet at her baseline. Breath sounds bilateral diminished. She complains of a lingering strong congested nonproductive cough. Patient instructed on deep breathing and coughing techniques. Patient has not established with COPD Clinic. No PFTs . Reviewed home respiratory medications. Currently ordered: Albuterol MDI every 4 hours as needed, Qvar twice daily, Duoneb aerosols every 4 hours as needed. Patient has access to all of their medications and uses them as prescribed. Patient able to verbalize proper routine and schedule for inhaler use. Instructed on proper inhaler technique. Discussed Maintenance and Rescue medications. Recommend: Pulmonary Consult Patient agreeable to assistance with scheduling hospital follow-up with pulmonary. [facility] 08-10-2024 Note Formatting of this n ote might be different from the original. COPD Navigator Note Introduced myself and explained my role. Reviewed Managing COPD at Home handout. Patient sitting upright in chair on 5L O2 with SpO2 93%. RA at baseline. Patient states she is feeling a little better today but not yet at her baseline. Breath sounds bilateral diminished. She complains of a lingering strong congested nonproductive cough. Patient instructed on deep breathing and coughing techniques. Patient has not established with COPD Clinic. No PFTs . Reviewed home respiratory medications. Currently ordered: Albuterol MDI every 4 hours as needed, Qvar twice daily, Duoneb aerosols every 4 hours as needed. Patient has access to all of their medications and uses them as prescribed. Patient able to verbalize proper routine and schedule for inhaler use. Instructed on proper inhaler technique. Discussed Maintenance and Rescue medications. Recommend: Pulmonary Consult Patient agreeable to assistance with scheduling hospital follow-up with pulmonary. [facility] 08-10-2024 Note [facility] Wound Care Progress Note Emily Peralta AGE: 83 y.o. GENDER: female : 1940 Subjective: HISTORY of PRESENT ILLNESS HPI Emily Peralta is a 83 y.o. female who presents for a wound care follow up. HPI: Ms. Peralta is a 83 y.o. female with past medical history significant for COPD. Patient presented to the emergency room from [facility] facility for shortness of breath. Patient admitted with COPD. Patient reports always has soreness to buttock area. Denies any treatment. Wound Care consulted for pressure injury right buttock. Patient sitting up in bedside recliner chair at time of visit. ET mix noted at bedside. Treatment completed. Patient denies any further needs. PAST MEDICAL HISTORY Medical History[1] PAST SURGICAL HISTORY Surgical History[2] FAMILY HISTORY Family History[3] SOCIAL HISTORY Social History[4] ALLERGIES Allergies[5] MEDICATIONS Medications Ordered Prior to Encounter[6] REVIEW OF SYSTEMS Pertinent items are noted in HPI. Objective: BP 135/78 (BP Location: Right arm, Patient Position: Lying) Pulse 84 Temp 36.8 ?C (98.2 ?F) (Temporal) Resp 19 Ht 1.524 m (5') Wt 99.8 kg (220 lb) SpO2 93% BMI 42.97 kg/m? PHYSICAL EXAM General appearance: in no apparent distress, well developed and well nourished, and alert, obese Skin: warm and dry Pulmonary: Normal effort, no respiratory distress, no cyanosis Right buttock: 1.0cmx0.3cmxUTD. Non-blanchable purple discoloration noted. No openings. No drainage. Periwound fragile Stable 08/04/24 LABS CBC: Lab Results Component Value Date WBC 9.2 08/10/2024 HGB 13.3 08/10/2024 HCT 41.1 08/10/2024 MCV 88.6 08/10/2024 PLT 133 (L) 08/10/2024 BMP: Lab Results Component Value Date NA 137 08/10/2024 K 4.2 08/10/2024 CL 101 08/10/2024 CO2 27 08/10/2024 BUN 24 (H) 08/10/2024 CREATININE 0.80 08/10/2024 PT/INR: No results found for: PROTIME, INR Prealbumin: No results found for: PREALBUMIN Albumin:No components found for: LABALBU Sed Rate:No results found for: SEDRATE Micro: No components found for: BC Assessment/Plan: Nursing staff to perform dressing change: Right buttock: Pressure Injury (DTI) - Stable - Clean with soap and water, apply ET mix then leave LISA TID and PRN - Reposition q2hrs - Incontinent checks q2hrs - Waffle cushion while in chair Nutritional support Wound Care to follow Recommend to follow up at [facility] wound care center after hospital discharge. Any questions or concerns please secure chat [facility] wound/ostomy. Thank you for the consult! I personally obtained the quinn and critical portions of the history and physical exam. I reviewed the labs, imaging studies, and electronic medical record. I reviewed the chart documentation and discussed the patient with treatment team members. I have edited the note to reflect my clinical findings and my assessment and plan. Please note, the time of this note does not reflect the time I saw this patient today, but the time of this documentaton. Portions of this note including HPI, ROS, impression/plan, and examination may have been copied forward from admission to today as to provide important historical information essential in contributing to medical decision making. Documentation has been reviewed and edited as necessary to support clinical decision making for today's visit and to reflect my own independent evaluation of this patient. Decision making for today's visit and to reflect my own independent evaluation of this patient. [1] No past medical history on file. [2] No past surgical history on file. [3] No family history on file. [4] Social History Tobacco Use Smoking status: Never Smokeless tobacco: Never [5] Allergies Allergen Reactions Morphine Hives Other Reaction(s): HIVES, ITCHING , NAUSEA Aspartame Codeine Duloxetine Unknown Lorazepam Oxycodone Wound Dressing Adhesive [6] No current facility-administered medications on file prior to encounter. Current Outpatient Medications on File Prior to Encounter Medication Sig Dispense Refill acetaminophen (Tylenol) 325 MG tablet Take 325 mg by mouth every 8 hours. Albuterol Sulfate 108 (90 Base) MCG/ACT aerosol powder Inhale 2 puffs every 4 hours as needed (SOB/ Wheezing). amLODIPine (Norvasc) 5 MG tablet Take 5 mg by mouth Every 24 hours. baclofen (Lioresal) 10 MG tablet Take 10 mg by mouth every 8 hours. beclomethasone HFA (Qvar) 40 MCG/ACT inhaler Inhale 40 mcg every 12 hours. benzonatate (Tessalon) 100 MG capsule Take 100 mg by mouth 3 times daily as needed for cough. bisacodyl (Dulcolax) 10 MG suppository Insert 10 mg into the rectum Daily as needed for constipation. cefdinir (Omnicef) 300 MG capsule Take 300 mg by mouth 2 times daily. es (more content not included)... [facility] 08-10-2024 Plan of care note Problem: Knowledge Deficit Goal: Patient/family/caregiver demonstrates understanding of disease process, treatment plan, medications, and discharge instructions 08/10/2024144 by Sophy Olmos RN Outcome: Progressing 08/10/2024139 by Sophy Olmos RN Outcome: Progressing Problem: Potential for Compromised Skin Integrity Goal: Skin Integrity is Maintained or Improved 08/10/2024 014 by Sophy Olmos RN Outcome: Progressing 08/10/2024 0140 by Sophy Olmos RN Outcome: Progressing Goal: Nutritional status is improving 08/10/2024 014 by Sophy Olmos RN Outcome: Progressing 08/10/2024 0140 by Sophy Olmos RN Outcome: Progressing Problem: Urinary Incontinence Goal: Perineal skin integrity is maintained or improved 08/10/2024 014 by Sophy Olmos RN Outcome: Progressing 08/10/2024 014 by Sophy Olmos RN Outcome: Progressing Problem: Problem Interventions Goal: Promote nutritional intake 08/10/2024144 by Sophy Olmos RN Outcome: Progressing 08/10/2024 014 by Sophy Olmos RN Outcome: Progressing [facility] 08-10-2024 Plan of care note Problem: Knowledge Deficit Goal: Patient/family/caregiver demonstrates understanding of disease process, treatment plan, medications, and discharge instructions Outcome: Progressing Problem: Potential for Compromised Skin Integrity Goal: Skin Integrity is Maintained or Improved Outcome: Progressing Goal: Nutritional status is improving Outcome: Progressing Problem: Urinary Incontinence Goal: Perineal skin integrity is maintained or improved Outcome: Progressing Problem: Problem Interventions Goal: Promote nutritional intake Outcome: Progressing [facility] 08-09-2024 Plan of care note Problem: Knowledge Deficit Goal: Patient/family/caregiver demonstrates understanding of disease process, treatment plan, medications, and discharge instructions Outcome: Progressing Problem: Potential for Compromised Skin Integrity Goal: Skin Integrity is Maintained or Improved Outcome: Progressing Goal: Nutritional status is improving Outcome: Progressing Problem: Urinary Incontinence Goal: Perineal skin integrity is maintained or improved Outcome: Progressing Problem: Problem Interventions Goal: Promote nutritional intake Outcome: Progressing [facility] 08-09-2024 Note Hospitalist Progress Note 08/09/[id number]: Please page me ([phone]) for patient care issues. [phone]: Please page [facility] Hospitalist for any issues. Subjective: Admit Date: 08/03/2024 PCP: No primary care provider on file. Room#: B2-255/B2-255 A Interval History: Patient currently sitting up in chair again today on high flow NC O2. She does look overall comfortable in nad. Does not appear short of breath today. When asked if she feels short of breath, she says she is not short of breath currently either. Yesterday she mentioned to me that she is always short of breath. However she is denying any shortness of breath today so appears the Lasix is helping. Adult diet Regular @[id number]@ 24HR INTAKE/OUTPUT: Intake/Output Summary (Last 24 hours) at 08/09/2024 1225 Last data filed at 08/09/2024 0556 Gross per 24 hour Intake 300 ml Output 2200 ml Net -1900 ml Past Medical History: Medical History[1] LABS: CBC: Recent Labs 08/07/2412408/08/2431208/09/24318 WBC 12.1* 7.3 9.3 RBC 4.86 4.73 4.87 HGB 14.1 13.6 14.1 HCT 42.1 41.9 43.0 MCV 86.6 88.6 88.3 RDW 13.5 13.7 13.6 PLT 153 124* 146 BMP: Recent Labs 08/07/2412408/08/2431208/09/24318 NA 138 139 138 K 4.4 4.7 4.5 CL 101 100 99 CO2 26 29 29 BUN 28* 21 24* CREATININE 0.79 0.80 0.83 GLUCOSE 74* 118* 118* CALCIUM 9.8 9.8 9.9 ANIONGAP 11 10 10 LIVER PROFILE: Recent Labs 08/07/2412408/08/2431208/09/24318 AST 22 16 11 ALT 10 9 6 BILITOT 0.4 0.3 0.3 ALKPHOS 78 78 78 PROT 7.2 7.5 7.3 PT/INR: No results for input(s): PROTIME, INR in the last 72 hours. CARDIAC ENZYMES: No results for input(s): TROPONINI in the last 72 hours. Procalcitonin: No results found for: PROCAL COVID-19 PCR: No results for input(s): COVID19 in the last 72 hours. Objective: Vitals: BP 123/94 (BP Location: Right arm, Patient Position: Sitting) Pulse 76 Temp 36.6 ?C (97.9 ?F) (Temporal) Resp 18 Ht 5' (1.524 m) Wt 220 lb (99.8 kg) SpO2 94% BMI 42.97 kg/m? Pulse Ox: SpO2 Av.4 % Min: 93 % Max: 96 % Supplemental O2: O2 Flow Rate (L/min): 5 L/min General appearance: No apparent distress, appears stated age, HEENT: Eyes: No scleral icterus Oral: Tongue is semi-moist Cardiovascular: S1/S2 heard, RRR, 2-3 + pitting leg edema Respiratory: Breath sounds decreased but clear Abdomen: Soft, non-tender, non-distended bowel sounds positive Musculoskeletal: No obvious deformities seen Skin: No visible rashes or lesions. Medications: Continuous Meds[2] Scheduled Meds[3] Assessment Acute, acute on chronic, unstable/uncontrolled chronic problems/diagnoses: # Acute COPD exacerbation -continue breathing treatments and started on IV steroids # Acute hypoxemic on chronic hypercapnic respiratory failure-continue high flow nasal cannula oxygen, wean as able. Pulmonary following. # H. Influenza Pneumonia - Continue rocephin # Rhinovirus infection - supportive tx # Pitting leg swelling, BNP elevated - given age and BMI, TTE has been ordered for further evaluation of LV and right heart function Stable chronic problems affecting care, new non-acute diagnoses: # Senile dementia with behavior # Chronic hypertension # Chronic hypothyroidism # GERD # COPD # Chronic back pain # Chronic diastolic heart failure # Osteoporosis # Hx of depression # Morbid obesity with JOCELIN and OHS # Hx of medical noncompliance. Plan -Pulmonary following -continue NC O2, wean as able -on ceftriaxone day 6. ID antibx stwship recommend de-escalating to cephalexin 1 g q8h through the end of day tomorrow to complete a 7-day course. Order placed -continue breathing tx and Solu-Medrol 20 mg IV every 12 hours -continue daily PRN lasix 40mg IV (likely do one more dose today, but 20mg IV once (she is already on po bid as well). It seems to be helping her breathing as well and she does not feel short of breath today. Also her high flow oxygen is down to 5 L. She was on 8 L before). -PT recommending SNF (she came from facility at [facility] and plan is to go back to [facility] with restorative therapy. However, she is still requiring a lot of O2 (on high flow NC) and pulmonary anticipating long-term weaning and recommending LTACH -check daily labs Extended Emergency Contact Information Primary Emergency Contact: AMBIKA RICHARDS Mobile Relation: Daughter Preferred language: Citizen Of [place] [employer] [employer] Back Feeder needed? No Secondary Emergency Contact: EDGARDOLIONEL Mobile Relation: Son Preferred language: Citizen Of [place] [employer] Back Feeder needed? No Tate Givens MD Division of Hospitalist Medicine Inpatient Medical Services/[facility] [place] PAGER: Epic chat [1] No past medical history on file. [2] [3] amLODIPine, 5 mg, Oral, q24h cephalexin, 1,000 mg, Oral, q8h enoxaparin, 30 mg, SubCUTAneous, 2 times per day escitalopram, 10 mg, Oral, Nightly furosem (more content not included)... [facility] 08-09-2024 Note Formatting of this n ote might be different from the original. Sent updated notes to return back to [facility] via [facility] per [facility] request. Await review and response regarding ability to accept. [facility] notified. T [facility] 08-09-2024 Note Formatting of this n ote might be different from the original. Sent updated notes to return back to [facility] via [facility] per [facility] request. Await review and response regarding ability to accept. [facility] notified. [facility] 08-09-2024 Note Care Management Prog ress Note -Pt remains on 2E. -Pulmonology following. -O2 now down to 5L. -Receiving IV ATB and Lasix. -Since pt is now down to 5L O2, discharge plan at this time is back to [facility] with restorative therapy. Facility made aware. -technical sales manager to follow and assist as needed. Length of Stay (Days): 6 GMLOS: 4 [facility] 08-09-2024 Note Formatting of this n ote might be different from the original. Care Management Progress Note -Pt remains on 2E. -Pulmonology following. -O2 now down to 5L. -Receiving IV ATB and Lasix. -Since pt is now down to 5L O2, discharge plan at this time is back to [facility] with restorative therapy. Facility made aware. -technical sales manager to follow and assist as needed. Length of Stay (Days): 6 GMLOS: 4 T [facility] 08-09-2024 Note Formatting of this n ote might be different from the original. Care Management Progress Note -Pt remains on 2E. -Pulmonology following. -O2 now down to 5L. -Receiving IV ATB and Lasix. -Since pt is now down to 5L O2, discharge plan at this time is back to [facility] with restorative therapy. Facility made aware. -technical sales manager to follow and assist as needed. Length of Stay (Days): 6 GMLOS: 4 [facility] 08-09-2024 Plan of care note Problem: Knowledge Deficit Goal: Patient/family/caregiver demonstrates understanding of disease process, treatment plan, medications, and discharge instructions 08/09/2024 0207 by Sophy Olmos RN Outcome: Progressing 08/09/2024 015 by Sophy Olmos RN Outcome: Progressing Problem: Potential for Compromised Skin Integrity Goal: Skin Integrity is Maintained or Improved 08/09/2024206 by Sophy Olmos RN Outcome: Progressing 08/09/2024154 by Sophy Olmos RN Outcome: Progressing Goal: Nutritional status is improving 08/09/2024206 by Sophy Olmos RN Outcome: Progressing 08/09/2024154 by Sophy Olmos RN Outcome: Progressing Problem: Urinary Incontinence Goal: Perineal skin integrity is maintained or improved 08/09/2024206 by Sophy Olmos RN Outcome: Progressing 08/09/2024154 by Sophy Olmos RN Outcome: Progressing Problem: Problem Interventions Goal: Promote nutritional intake 08/09/2024206 by Sophy Olmos RN Outcome: Progressing 08/09/2024154 by Sophy Olmos RN Outcome: Progressing [facility] 08-09-2024 Plan of care note Problem: Knowledge Deficit Goal: Patient/family/caregiver demonstrates understanding of disease process, treatment plan, medications, and discharge instructions Outcome: Progressing Problem: Potential for Compromised Skin Integrity Goal: Skin Integrity is Maintained or Improved Outcome: Progressing Goal: Nutritional status is improving Outcome: Progressing Problem: Urinary Incontinence Goal: Perineal skin integrity is maintained or improved Outcome: Progressing Problem: Problem Interventions Goal: Promote nutritional intake Outcome: Progressing [facility] 08-08-2024 Plan of care note Problem: Knowledge Deficit Goal: Patient/family/caregiver demonstrates understanding of disease process, treatment plan, medications, and discharge instructions Outcome: Progressing Problem: Potential for Compromised Skin Integrity Goal: Skin Integrity is Maintained or Improved Outcome: Progressing Problem: Urinary Incontinence Goal: Perineal skin integrity is maintained or improved Outcome: Progressing Problem: Problem Interventions Goal: Promote nutritional intake Outcome: Progressing [facility] 08-08-2024 Note Hospitalist Progress Note 08/08/2024 [phone]: Please page me ([phone]) for patient care issues. [phone]: Please page [facility] Hospitalist for any issues. Subjective: Admit Date: 08/03/2024 PCP: No primary care provider on file. Room#: B2-255/B2-255 A Interval History: Patient currently sitting up in chair again today on high flow NC O2. She admits to having a little sob this am. But then states she is always short of breath and she is never without being short of breath she states. Says this is normal for her. She denies any chest pain. No abdominal pain. No nausea or vomiting and no fevers or chills. She does look overall comfortable but maybe a little sob. Adult diet Regular @[id number]@ 24HR INTAKE/OUTPUT: Intake/Output Summary (Last 24 hours) at 08/08/2024 1112 Last data filed at 08/07/2024 1952 Gross per 24 hour Intake -- Output 800 ml Net -800 ml Past Medical History: Medical History[1] LABS: CBC: Recent Labs 08/06/2423208/07/2412408/08/24312 WBC 14.1* 12.1* 7.3 RBC 4.49 4.86 4.73 HGB 13.0 14.1 13.6 HCT 39.6 42.1 41.9 MCV 88.2 86.6 88.6 RDW 13.2 13.5 13.7 PLT 160 153 124* BMP: Recent Labs 08/06/2423208/07/2412408/08/24312 NA 135* 138 139 K 3.9 4.4 4.7 CL 95* 101 100 CO2 30 26 29 BUN 27* 28* 21 CREATININE 0.84 0.79 0.80 GLUCOSE 123* 74* 118* CALCIUM 10.3* 9.8 9.8 ANIONGAP 10 11 10 LIVER PROFILE: Recent Labs 08/06/2423208/07/2412408/08/24312 AST 16 22 16 ALT 6 10 9 BILITOT 0.4 0.4 0.3 ALKPHOS 83 78 78 PROT 7.7 7.2 7.5 PT/INR: No results for input(s): PROTIME, INR in the last 72 hours. CARDIAC ENZYMES: No results for input(s): TROPONINI in the last 72 hours. Procalcitonin: No results found for: PROCAL COVID-19 PCR: No results for input(s): COVID19 in the last 72 hours. Objective: Vitals: BP 119/82 (BP Location: Right arm, Patient Position: Sitting) Pulse 67 Temp 36.9 ?C (98.5 ?F) (Temporal) Resp 17 Ht 5' (1.524 m) Wt 220 lb (99.8 kg) SpO2 94% BMI 42.97 kg/m? Pulse Ox: SpO2 Av.8 % Min: 94 % Max: 98 % Supplemental O2: O2 Flow Rate (L/min): 8 L/min General appearance: No apparent distress, appears stated age, HEENT: Eyes: No scleral icterus Oral: Tongue is semi-moist Cardiovascular: S1/S2 heard, RRR, 3-4+ pitting leg edema Respiratory: Breath sounds decreased but clear Abdomen: Soft, non-tender, non-distended bowel sounds positive Musculoskeletal: No obvious deformities seen Skin: No visible rashes or lesions. Medications: Continuous Meds[2] Scheduled Meds[3] Assessment Acute, acute on chronic, unstable/uncontrolled chronic problems/diagnoses: # Acute COPD exacerbation -continue breathing treatments and started on IV steroids # Acute hypoxemic on chronic hypercapnic respiratory failure-continue high flow nasal cannula oxygen, wean as able. Pulmonary following. # H. Influenza Pneumonia - Continue rocephin # Rhinovirus infection - supportive tx # Pitting leg swelling, BNP elevated - given age and BMI, TTE has been ordered for further evaluation of LV and right heart function Stable chronic problems affecting care, new non-acute diagnoses: # Senile dementia with behavior # Chronic hypertension # Chronic hypothyroidism # GERD # COPD # Chronic back pain # Chronic diastolic heart failure # Osteoporosis # Hx of depression # Morbid obesity with JOCELIN and OHS # Hx of medical noncompliance. Plan -Pulmonary following -continue NC O2, wean as able -continue IV rocephin -continue breathing tx and Solu-Medrol 20 mg IV every 12 hours -continue daily PRN lasix 40mg IV -PT recommending SNF (she came from facility at [facility] and plan is to [facility] to [facility] with restorative therapy. However, she is still requiring a lot of O2 (on high flow NC) and pulmonary anticipating long term care social worker weaning and recommending LTACH -check daily labs Extended Emergency Contact Information Primary Emergency Contact: AMBIKA RICHARDS Mobile Relation: Daughter Preferred language: Citizen Of [place] Lay[employer] Back Feeder needed? No Secondary Emergency Contact: LIONEL REYNOSO Mobile Relation: Son Preferred language: Citizen Of [place] [employer] Back Feeder needed? No Tate Givens MD Division of Hospitalist Medicine Inpatient Medical Services/[facility] [place] PAGER: Epic chat [1] No past medical history on file. [2] [3] amLODIPine, 5 mg, Oral, q24h cefTRIAXone, 1,000 mg, IntraVENous, q24h enoxaparin, 30 mg, SubCUTAneous, 2 times per day escitalopram, 10 mg, Oral, Nightly furosemide, 20 mg, Oral, BID ipratropium-albuterol, 1 ampule, Nebulization, q4h WA labetalol, 200 mg, Oral, q24h levothyroxine, 137 mcg, Oral, q24h methylPREDNISolone sod suc (PF), 20 mg, IntraVENous, q12h mirabegron ER, 25 mg, Oral, Daily pantoprazole, 40 mg, Oral, qAM AC potassium chloride CR, 20 mEq, Oral, q12h sodium chloride 0.9%, 10 mL, IntraVENous, 2 times per (more content not included)... [facility] 08-08-2024 Plan of care note Problem: Knowledge Deficit Goal: Patient/family/caregiver demonstrates understanding of disease process, treatment plan, medications, and discharge instructions 08/08/2024624 by Sophy Olmos RN Outcome: Progressing 08/08/2024 0553 by Sophy Olmos RN Outcome: Progressing Problem: Potential for Compromised Skin Integrity Goal: Skin Integrity is Maintained or Improved 08/08/2024624 by Sophy Olmos RN Outcome: Progressing 08/08/2024 0553 by Sophy Olmos RN Outcome: Progressing Goal: Nutritional status is improving 08/08/2024624 by Sophy Olmos RN Outcome: Progressing 08/08/2024 0553 by Sophy Olmso RN Outcome: Progressing Problem: Urinary Incontinence Goal: Perineal skin integrity is maintained or improved 08/08/2024 0625 by Sophy Olmos RN Outcome: Progressing 08/08/2024 0553 by Sophy Olmos RN Outcome: Progressing Problem: Problem Interventions Goal: Promote nutritional intake 08/08/2024 06 by Sophy Olmos RN Outcome: Progressing 08/08/202453 by Sophy Olmos RN Outcome: Progressing [facility] 08-08-2024 Plan of care note Problem: Knowledge Deficit Goal: Patient/family/caregiver demonstrates understanding of disease process, treatment plan, medications, and discharge instructions Outcome: Progressing Problem: Potential for Compromised Skin Integrity Goal: Skin Integrity is Maintained or Improved Outcome: Progressing Goal: Nutritional status is improving Outcome: Progressing Problem: Urinary Incontinence Goal: Perineal skin integrity is maintained or improved Outcome: Progressing Problem: Problem Interventions Goal: Promote nutritional intake Outcome: Progressing [facility] 08-07-2024 Plan of care note Problem: Knowledge Deficit Goal: Patient/family/caregiver demonstrates understanding of disease process, treatment plan, medications, and discharge instructions Outcome: Progressing Problem: Potential for Compromised Skin Integrity Goal: Skin Integrity is Maintained or Improved Outcome: Progressing Problem: Urinary Incontinence Goal: Perineal skin integrity is maintained or improved Outcome: Progressing Problem: Problem Interventions Goal: Promote nutritional intake Outcome: Progressing [facility] 08-07-2024 Note Hospitalist Progress Note 08/07/2024 [phone]: Please page me ([phone]) for patient care issues. [phone]: Please page [facility] Hospitalist for any issues. Subjective: Admit Date: 08/03/2024 PCP: No primary care provider on file. Room#: B2-255/B2-255 A Interval History: Patient currently sitting up in chair again today on high flow NC O2. She admits to having a little sob this am. No chest pain. No abdominal pain. No nausea or vomiting and no fevers or chills. She does look overall comfortable but maybe a little sob. Adult diet Regular @[id number]@ 24HR INTAKE/OUTPUT: No intake or output data in the 24 hours ending 08/07/24 1307 Past Medical History: Medical History[1] LABS: CBC: Recent Labs 08/06/24 0233 08/07/24 0125 WBC 14.1* 12.1* RBC 4.49 4.86 HGB 13.0 14.1 HCT 39.6 42.1 MCV 88.2 86.6 RDW 13.2 13.5 PLT 160 153 BMP: Recent Labs 08/06/2423208/07/24 0125 NA 135* 138 K 3.9 4.4 CL 95* 101 CO2 30 26 BUN 27* 28* CREATININE 0.84 0.79 GLUCOSE 123* 74* CALCIUM 10.3* 9.8 ANIONGAP 10 11 LIVER PROFILE: Recent Labs 08/06/243 08/07/24 0125 AST 16 22 ALT 6 10 BILITOT 0.4 0.4 ALKPHOS 83 78 PROT 7.7 7.2 PT/INR: No results for input(s): PROTIME, INR in the last 72 hours. CARDIAC ENZYMES: No results for input(s): TROPONINI in the last 72 hours. Procalcitonin: No results found for: PROCAL COVID-19 PCR: No results for input(s): COVID19 in the last 72 hours. Objective: Vitals: BP 125/73 (BP Location: Right arm, Patient Position: Sitting) Pulse 85 Temp 36.8 ?C (98.3 ?F) (Temporal) Resp 18 Ht 5' (1.524 m) Wt 220 lb (99.8 kg) SpO2 94% BMI 42.97 kg/m? Pulse Ox: SpO2 Av.6 % Min: 91 % Max: 97 % Supplemental O2: O2 Flow Rate (L/min): 8 L/min General appearance: No apparent distress, appears stated age, HEENT: Eyes: No scleral icterus Oral: Tongue is semi-moist Cardiovascular: S1/S2 heard, RRR, 3-4+ pitting leg edema Respiratory: Breath sounds decreased but clear Abdomen: Soft, non-tender, non-distended bowel sounds positive Musculoskeletal: No obvious deformities seen Skin: No visible rashes or lesions. Medications: Continuous Meds[2] Scheduled Meds[3] Assessment Acute, acute on chronic, unstable/uncontrolled chronic problems/diagnoses: # Acute COPD exacerbation -continue breathing treatments and started on IV steroids # Acute hypoxemic on chronic hypercapnic respiratory failure-continue high flow nasal cannula oxygen, wean as able. Pulmonary following. # H. Influenza Pneumonia - Continue rocephin # Rhinovirus infection - supportive tx # Pitting leg swelling, BNP elevated - given age and BMI, TTE has been ordered for further evaluation of LV and right heart function Stable chronic problems affecting care, new non-acute diagnoses: # Senile dementia with behavior # Chronic hypertension # Chronic hypothyroidism # GERD # COPD # Chronic back pain # Chronic diastolic heart failure # Osteoporosis # Hx of depression # Morbid obesity with JOCELIN and OHS # Hx of medical noncompliance. Plan -Pulmonary following -continue NC O2, wean as able -continue IV rocephin -continue breathing tx and Solu-Medrol 20 mg IV every 12 hours -give lasix 40mg IV once. -PT recommending SNF (she came from facility at [facility] and plan is to go back to [facility] with restorative therapy. However, she is still requiring a lot of O2 (on high flow NC) and pulmonary anticipating long term care social worker weaning and recommending LTACH -check daily labs Extended Emergency Contact Information Primary Emergency Contact: AMBIKA RICHARDS Mobile Relation: Daughter Preferred language: Citizen Of [place] Lay[employer] Line Back Feeder needed? No Secondary Emergency Contact: LIONEL REYNOSO Mobile Relation: Son Preferred language: Citizen Of [place] Layup Line Back Feeder needed? No Tate Givens MD Division of Hospitalist Medicine Inpatient Medical Services/[facility] [place] PAGER: Epic chat [1] No past medical history on file. [2] [3] amLODIPine, 5 mg, Oral, q24h cefTRIAXone, 1,000 mg, IntraVENous, q24h enoxaparin, 30 mg, SubCUTAneous, 2 times per day escitalopram, 10 mg, Oral, Nightly furosemide, 20 mg, Oral, BID ipratropium-albuterol, 1 ampule, Nebulization, q4h WA labetalol, 200 mg, Oral, q24h levothyroxine, 137 mcg, Oral, q24h methylPREDNISolone sod suc (PF), 20 mg, IntraVENous, q12h mirabegron ER, 25 mg, Oral, Daily pantoprazole, 40 mg, Oral, qAM AC potassium chloride CR, 20 mEq, Oral, q12h sodium chloride 0.9%, 10 mL, IntraVENous, 2 times per day sodium chloride 0.9%, 10 mL, IntraVENous, q8h stomahesive in petrolatum, , Topical, q8h traZODone, 50 mg, Oral, Nightly [facility] 08-07-2024 Plan of care note Problem: Knowledge Deficit Goal: Patient/family/caregiver demonstrates understanding of disease process, treatment plan, medications, and discharge instructions Outcome: Progressing Problem: Potential for Compromised Skin Integrity Goal: Skin Integrity is Maintained or Improved Outcome: Progressing Goal: Nutritional status is improving Outcome: Progressing Problem: Urinary Incontinence Goal: Perineal skin integrity is maintained or improved Outcome: Progressing Problem: Problem Interventions Goal: Promote nutritional intake Outcome: Progressing [facility] 08-06-2024 Note Care Management Prog ress Note Spoke with pt's daughter Ambika over the phone to discuss DC planning. Informed her that pt is still requiring high flow O2 10 Liters and she cannot go back to ECF with that high O2 requirement. Informed daughter that we have [facility] ( [facility] ) looking at pt and will reevaluate her next week to see if she is still appropriate to go there after DC if still needing high flow O2. Ambika okay with [facility] following. Will continue to follow. Length of Stay (Days): 3 GMLOS: 4 [facility] 08-06-2024 Note Formatting of this n ote might be different from the original. Care Management Progress Note Spoke with pt's daughter Ambika over the phone to discuss DC planning. Informed her that pt is still requiring high flow O2 10 Liters and she cannot go back to ECF with that high O2 requirement. Informed daughter that we have [facility] ( [facility] ) looking at pt and will reevaluate her next week to see if she is still appropriate to go there after DC if still needing high flow O2. Ambika okpreet with [facility] following. Will continue to follow. Length of Stay (Days): 3 GMLOS: 4 T [facility] 08-06-2024 Note Formatting of this n ote might be different from the original. Care Management Progress Note Spoke with pt's daughter Ambika over the phone to discuss DC planning. Informed her that pt is still requiring high flow O2 10 Liters and she cannot go back to ECF with that high O2 requirement. Informed daughter that we have [facility] ( [facility] ) looking at pt and will reevaluate her next week to see if she is still appropriate to go there after DC if still needing high flow O2. Ambika maganaay with [facility] following. Will continue to follow. Length of Stay (Days): 3 GMLOS: 4 [facility] 08-06-2024 Note Hospitalist Progress Note 08/06/2024 [phone]: Please page me ([phone]) for patient care issues. [phone]: Please page [facility] Hospitalist for any issues. Subjective: Admit Date: 08/03/2024 PCP: No primary care provider on file. Room#: B2-243/B2-243 B Interval History: No overnight issues. Patient patient currently sitting up in chair again today on high flow NC O2. She denies sob currently. No chest pain. She currently resides at a facility and states she has to get back. She does have known dementia already and has been repeating the same thing every single day about being discharged. I explained to her about her being on high flow nasal cannula oxygen and her current infection and she seemed more receptive today. Otherwise she denies any chest pain. No abdominal pain. No nausea or vomiting and no fevers or chills Adult diet Regular @[id number]@ 24HR INTAKE/OUTPUT: No intake or output data in the 24 hours ending 08/06/24 0937 Past Medical History: Medical History[1] LABS: CBC: Recent Labs 08/03/24171108/04/24 1135 08/06/24 0233 WBC 11.7* -- 14.1* RBC 4.57 -- 4.49 HGB 13.2 13.7 13.0 HCT 41.5 -- 39.6 MCV 90.8 -- 88.2 RDW 14.1 -- 13.2 PLT 141 -- 160 BMP: Recent Labs 08/03/24 1712 08/06/24 0233 NA 136 135* K 4.0 3.9 CL 96* 95* CO2 29 30 BUN 13 27* CREATININE 0.79 0.84 GLUCOSE 90 123* CALCIUM 9.7 10.3* ANIONGAP 11 10 LIVER PROFILE: Recent Labs 08/03/24171108/06/24 0233 AST 17 16 ALT <6 6 BILITOT 0.8 0.4 ALKPHOS 85 83 PROT 7.7 7.7 PT/INR: No results for input(s): PROTIME, INR in the last 72 hours. CARDIAC ENZYMES: No results for input(s): TROPONINI in the last 72 hours. Procalcitonin: No results found for: PROCAL COVID-19 PCR: No results for input(s): COVID19 in the last 72 hours. Objective: Vitals: BP 136/65 Pulse 81 Temp (!) 35.5 ?C (95.9 ?F) (Temporal) Resp 20 Ht 5' (1.524 m) Wt 220 lb (99.8 kg) SpO2 95% BMI 42.97 kg/m? Pulse Ox: SpO2 Av.8 % Min: 91 % Max: 95 % Supplemental O2: O2 Flow Rate (L/min): 10 L/min General appearance: No apparent distress, appears stated age, HEENT: Eyes: No scleral icterus Oral: Tongue is semi-moist Cardiovascular: S1/S2 heard, RRR, 3+ pitting leg edema Respiratory: Breath sounds decreased but clear Abdomen: Soft, non-tender, non-distended bowel sounds positive Musculoskeletal: No obvious deformities seen Skin: No visible rashes or lesions. Medications: Continuous Meds[2] Scheduled Meds[3] Assessment Acute, acute on chronic, unstable/uncontrolled chronic problems/diagnoses: # Acute COPD exacerbation -continue breathing treatments and started on IV steroids # Acute hypoxemic on chronic hypercapnic respiratory failure-continue high flow nasal cannula oxygen, wean as able. Pulmonary following. # H. Influenza Pneumonia - Continue rocephin # Rhinovirus infection - supportive tx # Pitting leg swelling, BNP elevated - given age and BMI, TTE has been ordered for further evaluation of LV and right heart function Stable chronic problems affecting care, new non-acute diagnoses: # Senile dementia with behavior # Chronic hypertension # Chronic hypothyroidism # GERD # COPD # Chronic back pain # Chronic diastolic heart failure # Osteoporosis # Hx of depression # Morbid obesity with JOCELIN and OHS # Hx of medical noncompliance. Plan -Pulmonary following -continue NC O2, wean as able -continue IV rocephin -continue breathing tx, but Solu-Medrol was decreased to 20 mg IV every 12 hours -Echo pending (ordered due to 3-4 leg edema). -PT recommending SNF (she came from facility at [facility] and plan is to go back to [facility] with restorative therapy. However, she is still requiring a lot of O2 (on high flow NC) and pulmonary anticipating long-term weaning and recommending LTACH -check daily labs Extended Emergency Contact Information Primary Emergency Contact: AMBIKA RICHARDS Mobile Relation: Daughter Preferred language: Citizen [place] Lay[place] Line Back Feeder needed? No Secondary Emergency Contact: LIONEL REYNOSO Mobile Relation: Son Preferred language: Citizen Of [place] Lay[place] Line Back Feeder needed? No Tate Givens MD Division of Hospitalist Medicine Inpatient Medical Services/[facility] [place] PAGER: Epic chat [1] No past medical history on file. [2] [3] amLODIPine, 5 mg, Oral, q24h cefTRIAXone, 1,000 mg, IntraVENous, q24h enoxaparin, 30 mg, SubCUTAneous, 2 times per day escitalopram, 10 mg, Oral, Nightly furosemide, 20 mg, Oral, BID ipratropium-albuterol, 1 ampule, Nebulization, q4h WA labetalol, 200 mg, Oral, q24h levothyroxine, 137 mcg, Oral, q24h methylPREDNISolone sod suc (PF), 20 mg, IntraVENous, q12h mirabegron ER, 25 mg, Oral, Daily pantoprazole, 40 mg, Oral, qAM AC potassium chloride CR, 20 mEq, Oral, q12h sodium chloride 0.9%, 10 mL, IntraVENous, 2 times per day stomahesive in petrolatum, , Topical (more content not included)... [facility] 08-05-2024 Nurse Note Patient informed PO steroids were changed back to IV steroids. Patient continues to refuse steroids due to feeling restless and irritable. [facility] 08-05-2024 Nurse Note RN at bedside to administer PO Prednisone. Patient adamantly refusing to take steroids because they make her restless and irritable. Patient requesting more hydroxyzine because she already feels restless and irritable. RN informed patient of next available time for hydroxyzine to be administered. Dr. Givens notified and RN requested increase in hydroxyzine per patient request. [facility] 08-05-2024 Note Care Management Prog ress Note Called thanh Richards @ [phone] to discuss DC planning. Informed her that therapy is recommending SNF at [place]. Informed her that this TCC that her insurance is OON with therapy services at [facility] and that family would have to private pay. Daughter states she would like her to go back with restorative therapy at [facility]. Liaison at [facility] updated on daughter's plan to go back to [facility] with restorative therapy. Will continue to follow. Length of Stay (Days): 2 GMLOS: 3.4 [facility] 08-05-2024 Note Formatting of this n ote might be different from the original. Care Management Progress Note Called thanh Richards @ [phone] to discuss DC planning. Informed her that therapy is recommending SNF at [place]. Informed her that this TCC that her insurance is OON with therapy services at [facility] and that family would have to private pay. Daughter states she would like her to go back with restorative therapy at ECF. Liaison at [facility] updated on daughter's plan to go back to ECF with restorative therapy. Will continue to follow. Length of Stay (Days): 2 GMLOS: 3.4 [facility] 08-05-2024 Note Formatting of this n ote might be different from the original. Care Management Progress Note Called thanh Richards @ [phone] to discuss DC planning. Informed her that therapy is recommending SNF at [place]. Informed her that this TCC that her insurance is OON with therapy services at [facility] and that family would have to private pay. Daughter states she would like her to go back with restorative therapy at ECF. Liaison at [facility] updated on daughter's plan to go back to ECF with restorative therapy. Will continue to follow. Length of Stay (Days): 2 GMLOS: 3.4 [facility] 08-05-2024 Consult note Associated Order (s): IP CONSULT TO DIETITIAN Nutrition Assessment Type and Reason for Visit: Initial, Wound, Consult Nutrition Recommendations/Plan: Continue Regular Diet Assist and encourage patient to participate in room service and order well balanced meals Please document all oral intake in EMR for most accurate nutrient intake assessment As able, please obtain weekly standing scale weights for most accurate anthropometric data and calculation of macronutrient and fluid needs RDN to continue to monitor weekly: fluid accumulation, weight, skin integrity, trends in lab values, tolerance of PO, improvement in clinical status, discharge planning. Malnutrition Assessment: Malnutrition Status: Insufficient data Context: Chronic Illness Findings of the 6 clinical characteristics of malnutrition: Energy Intake: 75% or less estimated energy requirements for 1 month or longer (predicted) Weight Loss: Unable to assess Body Fat Loss: Unable to assess Muscle Mass Loss: Unable to assess Fluid Accumulation: Mild Extremities Pharmacy Teacher 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 Presented to [facility] via EMS from SNF with low pulse ox readings and SOB. Patient refused evaluation all day, eventually agreed in late afternoon on 08/03. Significant labs on admit WBC(11.7). Chest imaging concerning for RLL pneumonia and some pulmonary vascular congestion. In ED resistant to care, and refused to wear BiPAP. +PCR for rhinovirus. Admitted for continued workup, +pulmonology following and supporting. +12 L O2 via NC this morning. Sitting up to chair at time of assessment, very short and standoff-fransisco. Requested to have no dairy with meals, and requested prilosec to assist with heartburn. When I asked if she eats well outside of the hospital she replied: sometimes yes, sometimes no... it doesn't matter. Spoke with RN post visit, picked at oatmeal and a banana. RN also reported that she asked for milk with breakfast... Deferred NFPE. Estimated Daily Nutrient Needs: Energy Requirements Based On: Kcal/kg Weight Used for Energy Requirements: [place] Weight for Energy Calculation (kg): 45 kg Total Energy Requirements (kcals/day): 4693-0767 (25-30 kcal/kg IBW) Weight Used for Protein Requirements: [place] Weight in Kg Used for Protein Requirements: 45 kg Estimated Total Protein (g/day): 54-68 (1.2-1.5 g protein/kg IBW) Estimated Daily Total Fluid (ml/day): per MD Nutrition Related Findings: +I/O balance. A+O to self. poor judgement. +12 L O2 via NC. Poor PO. Emile score=15 with DTI. +nonpitting BLE Edema noted. meds: rocephin, lexapro, lasix, synthropid, solumedrol, PPI. Labs: HCO3(36.8), CO2(61). Wound Type: Deep Tissue Injury (+DTI noted to right buttock) Current Nutrition Therapies: Adult diet Regular Current Oral Intake Average Meal Intake: 1-25%, 0% Average Supplements Intake: None Ordered, Refusing to take Anthropometric Measures: Height: 152.4 cm (5') Current Body Weight: 99.8 kg (220 lb) Weight Source: Stated Admission Body Weight: 99.8 kg (220 lb) Usual Body Weight: 89.4 kg (197 lb) (11/11/23) % Weight Change (Calculated): 11.7 [place] Body Weight (lbs) (Calculated): 100 lbs [place] Body Weight (Kg) (Calculated): 45 kg % [place] Body Weight (Calculated): 220 % BMI (kg/m2) (Calculated): 43 Weight Adjustment For: No Adjustment BMI Categories: Obese Class 3 (BMI 40.0 or greater) Nutrition Diagnosis: Increased nutrient needs related to acute injury/trauma, impaired respiratory function as evidenced by (COPD exacerbation) Nutrition Interventions: Nutrition Education/Counseling: Education not indicated Coordination of Nutrition Care: Continue to monitor while inpatient Plan of Care discussed with: Rn and patient Goals: Previous Goal Met: Progressing toward Goal(s) Goals: PO intake 50% or greater Nutrition Monitoring and Evaluation: Behavioral-Environmental Outcomes: None Identified Food/Nutrient Intake Outcomes: Food and Nutrient Intake Physical Signs/Symptoms Outcomes: Biochemical Data, GI Status, Meal Time Behavior, Weight, Skin, Fluid Status or Edema, Nutrition Focused Physical Findings, Nausea or Vomiting Discharge Planning: Continue current diet Zuleyka Saul RDN, LDN, Contact: *[phone] [facility] 08-05-2024 Consult note Associated Order (s): IP CONSULT TO DIETITIAN Nutrition Assessment Type and Reason for Visit: Initial, Wound, Consult Nutrition Recommendations/Plan: Continue Regular Diet Assist and encourage patient to participate in room service and order well balanced meals Please document all oral intake in EMR for most accurate nutrient intake assessment As able, please obtain weekly standing scale weights for most accurate anthropometric data and calculation of macronutrient and fluid needs RDN to continue to monitor weekly: fluid accumulation, weight, skin integrity, trends in lab values, tolerance of PO, improvement in clinical status, discharge planning. Malnutrition Assessment: Malnutrition Status: Insufficient data Context: Chronic Illness Findings of the 6 clinical characteristics of malnutrition: Energy Intake: 75% or less estimated energy requirements for 1 month or longer (predicted) Weight Loss: Unable to assess Body Fat Loss: Unable to assess Muscle Mass Loss: Unable to assess Fluid Accumulation: Mild Extremities Pharmacy Teacher 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 Presented to [facility] via EMS from SNF with low pulse ox readings and SOB. Patient refused evaluation all day, eventually agreed in late afternoon on 08/03. Significant labs on admit WBC(11.7). Chest imaging concerning for RLL pneumonia and some pulmonary vascular congestion. In ED resistant to care, and refused to wear BiPAP. +PCR for rhinovirus. Admitted for continued workup, +pulmonology following and supporting. +12 L O2 via NC this morning. Sitting up to chair at time of assessment, very short and standoff-fransisco. Requested to have no dairy with meals, and requested prilosec to assist with heartburn. When I asked if she eats well outside of the hospital she replied: sometimes yes, sometimes no... it doesn't matter. Spoke with RN post visit, picked at oatmeal and a banana. RN also reported that she asked for milk with breakfast... Deferred NFPE. Estimated Daily Nutrient Needs: Energy Requirements Based On: Kcal/kg Weight Used for Energy Requirements: [place] Weight for Energy Calculation (kg): 45 kg Total Energy Requirements (kcals/day): 9927-8182 (25-30 kcal/kg IBW) Weight Used for Protein Requirements: [place] Weight in Kg Used for Protein Requirements: 45 kg Estimated Total Protein (g/day): 54-68 (1.2-1.5 g protein/kg IBW) Estimated Daily Total Fluid (ml/day): per MD Nutrition Related Findings: +I/O balance. A+O to self. poor judgement. +12 L O2 via NC. Poor PO. Emile score=15 with DTI. +nonpitting BLE Edema noted. meds: rocephin, lexapro, lasix, synthropid, solumedrol, PPI. Labs: HCO3(36.8), CO2(61). Wound Type: Deep Tissue Injury (+DTI noted to right buttock) Current Nutrition Therapies: Adult diet Regular Current Oral Intake Average Meal Intake: 1-25%, 0% Average Supplements Intake: None Ordered, Refusing to take Anthropometric Measures: Height: 152.4 cm (5') Current Body Weight: 99.8 kg (220 lb) Weight Source: Stated Admission Body Weight: 99.8 kg (220 lb) Usual Body Weight: 89.4 kg (197 lb) (11/11/23) % Weight Change (Calculated): 11.7 [place] Body Weight (lbs) (Calculated): 100 lbs [place] Body Weight (Kg) (Calculated): 45 kg % [place] Body Weight (Calculated): 220 % BMI (kg/m2) (Calculated): 43 Weight Adjustment For: No Adjustment BMI Categories: Obese Class 3 (BMI 40.0 or greater) Nutrition Diagnosis: Increased nutrient needs related to acute injury/trauma, impaired respiratory function as evidenced by (COPD exacerbation) Nutrition Interventions: Nutrition Education/Counseling: Education not indicated Coordination of Nutrition Care: Continue to monitor while inpatient Plan of Care discussed with: Rn and patient Goals: Previous Goal Met: Progressing toward Goal(s) Goals: PO intake 50% or greater Nutrition Monitoring and Evaluation: Behavioral-Environmental Outcomes: None Identified Food/Nutrient Intake Outcomes: Food and Nutrient Intake Physical Signs/Symptoms Outcomes: Biochemical Data, GI Status, Meal Time Behavior, Weight, Skin, Fluid Status or Edema, Nutrition Focused Physical Findings, Nausea or Vomiting Discharge Planning: Continue current diet Zuleyka Saul RDN, LDN, Contact: *[phone] Associated Order(s): INPATIENT CONSULT TO WOUND CARE PROVIDERS Images from the original note were not included. [facility] Wound Care CONSULT Note Emily Peralta AGE: 83 y.o. GENDER: female : 1940 Subjective: HISTORY of PRESENT ILLNESS HPI Emily Peralta is a 83 y.o. female who presents for a wound consult. HPI: Ms. Peralta is a 83 y.o. female with past medical history significant for COPD. Patient presented to the emergency room from fdc facility for shortness of breath. Patient admitted with COPD. Patient reports always has soreness to buttock area. Denies any treatment. Wound Care consulted for pressure injury right buttock. PAST MEDICAL HISTORY Medical History[1] PAST SURGICAL HISTORY Surgical History[2] FAMILY HISTORY Family History[3] SOCIAL HISTORY Social History[4] ALLERGIES Allergies[5] MEDICATIONS Medications Ordered Prior to Encounter[6] REVIEW OF SYSTEMS Pertinent items are noted in HPI. Objective: BP 108/67 (BP Location: Right arm, Patient Position: Sitting) Pulse 71 Temp 36.6 C (97.9 F) (Temporal) Resp 18 Ht 1.524 m (5') Wt 99.8 kg (220 lb) SpO2 92% BMI 42.97 kg/m PHYSICAL EXAM General appearance: in no apparent distress, well developed and well nourished, and alert, obese Skin: warm and dry Pulmonary: Normal effort, no respiratory distress, no cyanosis Right buttock: 1.0cmx0.3cmxUTD. Non-blanchable purple discoloration noted. No openings. No drainage. Periwound fragile 08/04/24 LABS CBC: Lab Results Component Value Date WBC 11.7 (H) 08/03/2024 HGB 13.7 08/04/2024 HCT 41.5 08/03/2024 MCV 90.8 08/03/2024 PLT 141 08/03/2024 BMP: Lab Results Component Value Date NA 136 08/03/2024 K 4.0 08/03/2024 CL 96 (L) 08/03/2024 CO2 29 08/03/2024 BUN 13 08/03/2024 CREATININE 0.79 08/03/2024 PT/INR: No results found for: PROTIME, INR Prealbumin: No results found for: PREALBUMIN Albumin:No components found for: LABALBU Sed Rate:No results found for: SEDRATE Micro: No components found for: BC Assessment/Plan: Nursing staff to perform dressing change: Right buttock: Pressure Injury (DTI) - Clean with soap and water, apply ET mix then leave FOREIGN CAR MECHANIC TID and PRN - Reposition q2hrs - Incontinent checks q2hrs - Waffle cushion while in chair Nutritional support Wound Care to follow Recommend to follow up at [facility] Outpatient wound care center after hospital discharge. Any questions or concerns please secure chat [facility] wound/ostomy. Thank you for the consult! I personally obtained the quinn and critical portions of the history and physical exam. I reviewed the labs, imaging studies, and electronic medical record. I reviewed the chart documentation and discussed the patient with treatment team members. I have edited the note to reflect my clinical findings and my assessment and plan. Please note, the time of this note does not reflect the time I saw this patient today, but the time of this documentaton. Portions of this note including HPI, ROS, impression/plan, and examination may have been copied forward from admission to today as to provide important historical information essential in contributing to medical decision making. Documentation has been reviewed and edited as necessary to support clinical decision making for today's visit and to reflect my own independent evaluation of this patient. Decision making for today's visit and to reflect my own independent evaluation of this patient. [1] No past medical history on file. [2] No past surgical history on file. [3] No family history on file. [4] Social History Tobacco Use Smoking status: Never Smokeless tobacco: Never [5] Allergies Allergen Reactions Morphine Hives Other Reaction(s): HIVES, ITCHING , NAUSEA Aspartame Codeine Duloxetine Unknown Lorazepam Oxycodone Wound Dressing Adhesive [6] No current facility-administered medications on file prior to encounter. Current Outpatient Medications on File Prior to Encounter Medication Sig Dispense Refill acetaminophen (Tylenol) 325 MG tablet Take 325 mg by mouth every 8 hours. Albuterol Sulfate 108 (90 Base) MCG/ACT aerosol powder Inhale 2 puffs every 4 hours as needed (SOB/ Wheezing). amLODIPine (Norvasc) 5 MG tablet Take 5 mg by mouth Every 24 hours. baclofen (Lioresal) 10 MG tablet Take 10 mg by mouth every 8 hours. beclomethasone HFA (Qvar) 40 MCG/ACT inhaler Inhale 40 mcg every 12 hours. benzonatate (Tessalon) 100 MG capsule Take 100 mg by mouth 3 times daily as needed for cough. bisacodyl (Dulcolax) 10 MG suppository Insert 10 mg into the rectum Daily as needed for constipation. cefdinir (Omnicef) 300 MG capsule Take 300 mg by mouth 2 times daily. escitalopram (Lexapro) 10 MG tablet Take 10 mg by mouth Nightly. Esomeprazole Magnesium 20 MG tablet delayed-release Take 20 mg by mouth Every 24 hours. furosemide (Lasix) 20 MG tablet Take 20 mg by mouth 2 times daily. hydrOXYzine HCl (Atarax) 25 MG tablet Take 25 mg by mouth 3 times daily. ipratropium-albuterol (Duo-Neb) 0.5-2.5 mg/3 mL nebulizer solution Inhale 3 mL every 4 hours as needed (cough). labetalol (Normodyne) 200 MG tablet Take 200 mg by mouth Every 24 hours. levothyroxine (Synthroid, Levoxyl) 137 MCG tablet Take 1 tablet by mouth Every 24 hours. loperamide (Imodium A-D) 2 MG tablet Take 2 mg by mouth every 4 hours as needed for diarrhea. mirabegron ER (Myrbetriq) 25 MG 24 hr tablet Take 25 mg by mouth daily. ondansetron (Zofran) 4 MG tablet Take 4 mg by mouth every 8 hours as needed for nausea or vomiting. potassium chloride CR (K-Tab) 20 MEQ ER tablet Take 20 mEq by mouth every 12 hours. senna-docusate (Senexon-S) 8.6-50 MG tablet Take 1 tablet by mouth Daily as needed for constipation. traMADol (Ultram) 50 MG tablet Take 50 mg by mouth 2 times daily as needed for moderate pain (4-6) or severe pain (7-10). traZODone (Desyrel) 50 MG tablet Take 50 mg by mouth Nightly. Cosigned by Arnoldo Malik DO at 08/09/2024 5:01 PM EDT Associated Order(s): IP CONSULT TO PULMONOLOGY Images from the original note were not included. [facility] Pulmonary Medicine [address] [place] [id number] Patient - Emily Peralta - 1940 Date of Admission - 08/03/2024 4:21 PM Date of Evaluation - 08/04/2024 Room - B2-243/B2-243 B Hospital Day - 1 Consulting - Tate Givens MD PCP - No primary care provider on file. Reason for Consult COPD exacerbation History of Present Illness Emily Peralta is a 83 y.o. female admitted for shortness of breath, hypoxemia. Patient has a past medical history of: - possible asthma - trivial smoking history - dementia - hypothyroidism - hypertension Patient is new to the [facility] pulmonary service, patient thinks she may have seen a wire spooler several years ago. She was admitted to [facility] 08/03/24 from SNF for increasing shortness of breath with associated productive cough. She states she wears 2-4 LPM supplemental O2 nightly at the facility but not usually during the day. CXR concerning for RLL pneumonia and some pulmonary vascular congestion. She required up to 15 LPM high-flow nasal cannula. She endorses associated wheezing and chest tightness. She denies fever, chills, orthopnea, hemoptysis, abdominal pain, nausea, vomiting, diarrhea, constipation, lightheadedness, dizziness, dysuria, hematuria, melena, hematochezia, leg pain, leg swelling. She states she rarely smoked in the past, at most 1 pack her whole life but she did have significant second hand smoke exposure from first ex-. 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 She is hemodynamically stable and in no acute distress. Active Hospital Problem List Problem List[1] Medical History Past Medical History Medical History[2] Past Surgical History Surgical History[3] Social History Social History Socioeconomic History Marital status: Unknown Spouse name: Not on file Number of children: Not on file Years of education: Not on file Highest education level: Not on file Occupational History Not on file Tobacco Use Smoking status: Never Smokeless tobacco: Never Substance and Sexual Activity Alcohol use: Not on file Drug use: Not on file Sexual activity: Not on file Other Topics Concern Not on file Social History Narrative Not on file Social Drivers of Health Financial Resource Strain: Low Risk (08/04/2024) Overall Financial Resource Strain (CARDIA) Difficulty of Paying Living Expenses: Not very hard Food Insecurity: No Food Insecurity (08/04/2024) Hunger Vital Sign Worried About Running Out of Food in the Last Year: Never true Ran Out of Food in the Last Year: Never true Transportation Needs: No Transportation Needs (08/04/2024) PRAPARE - Transportation Lack of Transportation (Medical): No Lack of Transportation (Non-Medical): No Physical Activity: Inactive (08/04/2024) Exercise Vital Sign Days of Exercise per Week: 0 days Minutes of Exercise per Session: 0 min Stress: No Stress Concern Present (08/04/2024) [employer] - Occupational Stress Questionnaire Feeling of Stress : Only a little Social Connections: Unknown (08/04/2024) Social Connection and Isolation Panel [NHANES] Frequency of Communication with Friends and Family: Never Frequency of Social Gatherings with Friends and Family: Never Attends Hoahaoism Services: Never Active Member of Clubs or Organizations: No Attends Club or Organization Meetings: Never Marital Status: Patient declined Intimate Partner Violence: Not At Risk (08/04/2024) Humiliation, Afraid, Rape, and Kick questionnaire Fear of Current or Ex-Partner: No Emotionally Abused: No Physically Abused: No Sexually Abused: No Housing Stability: Low Risk (08/04/2024) Housing Stability Vital Sign Unable to Pay for Housing in the Last Year: No Number of Times Moved in the Last Year: 0 Homeless in the Last Year: No Family History Family History[4] Immunization History Immunization History Administered Date(s) Administered Moderna SARS-CoV-2 Vaccination 02/28/2021 Medications Current Medications Scheduled Meds[5] PRN Mediations PRN Meds[6] IV Drips/Infusions Continuous Meds[7] Home Medications Current Outpatient Medications Medication Instructions acetaminophen (TYLENOL) 325 mg, Every 8 hours Albuterol Sulfate 108 (90 Base) MCG/ACT aerosol powder 2 puffs, Every 4 hours PRN amLODIPine (NORVASC) 5 mg, Every 24 hours baclofen (LIORESAL) 10 mg, Every 8 hours beclomethasone HFA (QVAR) 40 mcg, Every 12 hours benzonatate (TESSALON) 100 mg, 3 times daily PRN bisacodyl (DULCOLAX) 10 mg, Daily PRN cefdinir (OMNICEF) 300 mg, 2 times daily escitalopram (LEXAPRO) 10 mg, Nightly Esomeprazole Magnesium 20 mg, Every 24 hours furosemide (LASIX) 20 mg, 2 times daily hydrOXYzine HCl (ATARAX) 25 mg, 3 times daily ipratropium-albuterol (Duo-Neb) 0.5-2.5 mg/3 mL nebulizer solution 3 mL, Every 4 hours PRN labetalol (NORMODYNE) 200 mg, Every 24 hours levothyroxine (Synthroid, Levoxyl) 137 MCG tablet 1 tablet, Every 24 hours loperamide (IMODIUM A-D) 2 mg, Every 4 hours PRN mirabegron ER (MYRBETRIQ) 25 mg, Daily ondansetron (ZOFRAN) 4 mg, Every 8 hours PRN potassium chloride CR (K-Tab) 20 MEQ ER tablet 20 mEq, Every 12 hours senna-docusate (Senexon-S) 8.6-50 MG tablet 1 tablet, Daily PRN traMADol (ULTRAM) 50 mg, 2 times daily PRN traZODone (DESYREL) 50 mg, Nightly Allergies Allergies[8] Review of Systems General Denies any fever or chills HEENT Denies any diplopia, tinnitus or vertigo Resp See HPI Cardiac Denies any chest pain, palpitations, claudication or edema GI Denies any melena, hematochezia, hematemesis or pyrosis Denies any frequency, urgency, hesitancy or incontinence Heme Denies bruising or bleeding easily Neuro Denies any focal motor or sensory deficits Psychiatric Denies anxiety, depression, suicidal ideation Skin Denies rashes, itching, open sores Vitals height is 5' (1.524 m) and weight is 220 lb (99.8 kg). Her temporal temperature is 36.2 C (97.1 F). Her blood pressure is 146/75 and her pulse is 91. Her respiration is 24 and oxygen saturation is 92%. Body mass index is 42.97 kg/m . 24 Hour intake and output Intake/Output Summary (Last 24 hours) at 08/04/2024 1222 Last data filed at 08/04/2024 0942 Gross per 24 hour Intake 50 ml Output 150 ml Net -100 ml Wt Readings from Last 3 Encounters: 08/04/24 220 lb (99.8 kg) Physical Exam General appearance: Awake, alert, no acute distress. On 15 liters/min SC. HEENT: Normocephalic, atraumatic. Pupils equil and round, External ear normal, conjunctivae normal, negative for scleral icterus. No congestion. Mallampati 3. Neck: ROM normal, supple, trachea midline. No lymphadenopathy Cardiovascular: Regular rate and rhythm. Heart sounds normal. Negative for murmur, friction rub, or gallop. Pulmonary: Effort normal, no respiratory distress. No stridor. No wheezing or crackles. Abdomen: Soft, non distended, non tender, bowel sounds normal. No palpable masses. No hepatomegaly Musculoskeletal: ROM normal, Negative for swelling, tenderness or deformity. Skin: Warm, dry. Skin color, texture, turgor normal. Negative for rashes or lesions. Extremities: No clubbing, cyanosis. Minimal lower extremity edema Neurological: No focal deficits. Alert and oriented x2 (did not know location). Lymphatics: No cervical or axillary lymphadenopathy Psychiatric: Mood, behavior, thought content normal. Cooperative with exam. Labs CBC Results from last 7 days Lab Units 08/04/24 1135 08/03/24 1712 WBC AUTO 10*3/uL -- 11.7* HEMOGLOBIN g/dL -- 13.2 HEMOGLOBIN BG g/dl 13.7 -- HEMATOCRIT % -- 41.5 PLATELETS 10*3/uL -- 141 BMP: Results from last 7 days Lab Units 08/03/24 1712 SODIUM mmol/L 136 POTASSIUM mmol/L 4.0 CHLORIDE mmol/L 96* CO2 mmol/L 29 BUN mg/dL 13 CREATININE mg/dL 0.79 GLUCOSE mg/dL 90 CALCIUM mg/dL 9.7 ABG: Results from last 7 days Lab Units 08/04/24 1135 SOURCE OF OXYGEN High Flow Oxygen Therapy (FiO2) LIVER PROFILE Results from last 7 days Lab Units 08/03/24 1712 ALK PHOS U/L 85 BILIRUBIN TOTAL mg/dL 0.8 PROTEIN TOTAL g/dL 7.7 ALT U/L <6 AST U/L 17 INR PTT No results found for: PTT Cultures N/A Pulmonary Function Tests (PFT's) No PFT on file Sleep History N/A Radiology All relevant/recent imaging was personally reviewed by me. Please see official radiology report for details. CXR (08/03/24) Limited exam due to obesity and hypoinflation lungs and portable technique. There appears to be hypoinflation lungs with pulmonary vascular prominence with prominent interstitial markings with small area of infiltrate or atelectasis right lower lobe and possible left lung base. Advanced degenerative joint disease both shoulders Assessment Acute on chronic hypoxemic respiratory failure Chronic hypercarbic respiratory failure CAP Possible asthma Trivial smoking history Morbid obesity Possible JOCELIN/OHS Recommendations CXR concerning for CAP involving the right lower lobe, agree with ceftriaxone/azithromycin, obtain sputum for analysis I question her diagnosis of COPD, she has a very trivial smoking history, it is possible she may have asthma, no wheezing on exam today, recommend monitoring off steroids for now, OK to continue scheduled Duonebs, consider CT chest without contrast for further evaluation of the parenchyma if no significant improvement by tomorrow VBG concerning for some component of chronic CO2 retention, possibly has underlying OHS, recommend against BiPAP nightly for now given significant O2 requirements, doubt she would be compliant with nocturnal PAP going forward Mild leg swelling noted, BNP elevated given age and BMI, consider routine TTE for further evaluation of LV and right heart function Wean supplemental O2 for goal SpO2 > 92% Pulmonary will continue to follow Thank you for allowing me to participate in the care of this patient, please feel free to reach out with any questions. Artur Neri MD Pulmonary & Critical Care Medicine [facility] [1] Patient Active Problem List Diagnosis COPD exacerbation (HCC) [2] No past medical history on file. [3] No past surgical history on file. [4] No family history on file. [5] amLODIPine, 5 mg, Oral, q24h azithromycin, 500 mg, IntraVENous, q24h cefTRIAXone, 1,000 mg, IntraVENous, q24h enoxaparin, 30 mg, SubCUTAneous, 2 times per day escitalopram, 10 mg, Oral, Nightly furosemide, 20 mg, Oral, BID ipratropium-albuterol, 1 ampule, Nebulization, q4h WA labetalol, 200 mg, Oral, q24h levothyroxine, 137 mcg, Oral, q24h mirabegron ER, 25 mg, Oral, Daily [START ON 08/05/2024] pantoprazole, 40 mg, Oral, qAM AC potassium chloride CR, 20 mEq, Oral, q12h sodium chloride 0.9%, 10 mL, IntraVENous, 2 times per day traZODone, 50 mg, Oral, Nightly [6] PRN medications: albuterol, hydrOXYzine pamoate, polyethylene glycol (PEG) 3350, senna-docusate sodium, sodium chloride, sodium chloride 0.9% [7] [8] Allergies Allergen Reactions Morphine Hives Other Reaction(s): HIVES, ITCHING , NAUSEA Aspartame Codeine Duloxetine Unknown Lorazepam Oxycodone Wound Dressing Adhesive documented in this encounter [facility] 08-05-2024 Note Hospitalist Progress Note 08/05/2024 [phone]: Please page me ([phone]) for patient care issues. [phone]: Please page [facility] [place] night Hospitalist for any issues. Subjective: Admit Date: 08/03/2024 PCP: No primary care provider on file. Room#: B2-243/B2-243 B Interval History: No overnight issues. Patient patient currently sitting up in chair. She says she is breathing okay but admits to being a little short of breath. Currently no chest pain. She is tell me she needs to get back to her facility? She denies any fevers or chills. No abdominal pain. No nausea or vomiting. Adult diet Regular @[id number]@ 24HR INTAKE/OUTPUT: Intake/Output Summary (Last 24 hours) at 08/05/2024 1234 Last data filed at 08/04/2024 1815 Gross per 24 hour Intake 360 ml Output -- Net 360 ml Past Medical History: Medical History[1] LABS: CBC: Recent Labs 08/03/24 1712 08/04/24 1135 WBC 11.7* -- RBC 4.57 -- HGB 13.2 13.7 HCT 41.5 -- MCV 90.8 -- RDW 14.1 -- PLT 141 -- BMP: Recent Labs 08/03/24 171 NA 136 K 4.0 CL 96* CO2 29 BUN 13 CREATININE 0.79 GLUCOSE 90 CALCIUM 9.7 ANIONGAP 11 LIVER PROFILE: Recent Labs 08/03/24 1712 AST 17 ALT <6 BILITOT 0.8 ALKPHOS 85 PROT 7.7 PT/INR: No results for input(s): PROTIME, INR in the last 72 hours. CARDIAC ENZYMES: No results for input(s): TROPONINI in the last 72 hours. Procalcitonin: No results found for: PROCAL COVID-19 PCR: No results for input(s): COVID19 in the last 72 hours. Objective: Vitals: BP 108/67 (BP Location: Right arm, Patient Position: Sitting) Pulse 71 Temp 36.6 ?C (97.9 ?F) (Temporal) Resp 18 Ht 5' (1.524 m) Wt 220 lb (99.8 kg) SpO2 92% BMI 42.97 kg/m? Pulse Ox: SpO2 Av.8 % Min: 91 % Max: 96 % Supplemental O2: O2 Flow Rate (L/min): 12 L/min General appearance: No apparent distress, appears stated age, HEENT: Eyes: No scleral icterus Oral: Tongue is semi-moist Cardiovascular: S1/S2 heard, RRR, 3-4 pitting leg edema Respiratory: Breath sounds decreased, sounds a little tight with end expiratory wheezing Abdomen: Soft, non-tender, non-distended bowel sounds positive Musculoskeletal: No obvious deformities seen Skin: No visible rashes or lesions. Medications: Continuous Meds[2] Scheduled Meds[3] Assessment Acute, acute on chronic, unstable/uncontrolled chronic problems/diagnoses: # Acute COPD exacerbation -continue breathing treatments and started on IV steroids # Acute hypoxemic on chronic hypercapnic respiratory failure-continue nasal cannula oxygen, wean as able # H. Influenza Pneumonia - Continue rocephin # Rhinovirus infection - supportive tx # Pitting leg swelling, BNP elevated - given age and BMI, TTE has been ordered for further evaluation of LV and right heart function Stable chronic problems affecting care, new non-acute diagnoses: # Senile dementia with behavior # Chronic hypertension # Chronic hypothyroidism # GERD # COPD # Chronic back pain # Chronic diastolic heart failure # Osteoporosis # Hx of depression # Morbid obesity with JOCELNI and OHS # Hx of medical noncompliance. Plan -Pulmonary following -continue NC O2, wean as able -continue IV rocephin -continue breathing tx, will start Solu-Medrol 40 mg IV every 8 hours -Echo pending (3-4 leg edema). -check daily labs Extended Emergency Contact Information Primary Emergency Contact: AMBIKA RICHARDS Mobile Relation: Daughter Preferred language: Citizen Of [place] [employer] Back Feeder needed? No Secondary Emergency Contact: LIONEL REYNOSO Mobile Relation: Son Preferred language: Citizen Of [place] [employer] Back Feeder needed? No Tate Givens MD Division of Hospitalist Medicine Inpatient Medical Services/[facility] [place] PAGER: Epic chat [1] No past medical history on file. [2] [3] amLODIPine, 5 mg, Oral, q24h cefTRIAXone, 1,000 mg, IntraVENous, q24h enoxaparin, 30 mg, SubCUTAneous, 2 times per day escitalopram, 10 mg, Oral, Nightly furosemide, 20 mg, Oral, BID ipratropium-albuterol, 1 ampule, Nebulization, q4h WA labetalol, 200 mg, Oral, q24h levothyroxine, 137 mcg, Oral, q24h methylPREDNISolone sod suc (PF), 40 mg, IntraVENous, q8h mirabegron ER, 25 mg, Oral, Daily pantoprazole, 40 mg, Oral, qAM AC potassium chloride CR, 20 mEq, Oral, q12h sodium chloride 0.9%, 10 mL, IntraVENous, 2 times per day traZODone, 50 mg, Oral, Nightly [facility] 08-05-2024 Plan of care note Problem: Knowledge Deficit Goal: Patient/family/caregiver demonstrates understanding of disease process, treatment plan, medications, and discharge instructions Outcome: Progressing Problem: Potential for Compromised Skin Integrity Goal: Skin Integrity is Maintained or Improved Outcome: Progressing Goal: Nutritional status is improving Outcome: Progressing Problem: Urinary Incontinence Goal: Perineal skin integrity is maintained or improved Outcome: Progressing [facility] 08-05-2024 Consult note Associated Order (s): INPATIENT CONSULT TO WOUND CARE PROVIDERS Images from the original note were not included. [facility] Wound Care CONSULT Note Emily Peralta AGE: 83 y.o. GENDER: female : 1940 Subjective: HISTORY of PRESENT ILLNESS HPI Emily Peralta is a 83 y.o. female who presents for a wound consult. HPI: Ms. Peralta is a 83 y.o. female with past medical history significant for COPD. Patient presented to the emergency room from [facility] facility for shortness of breath. Patient admitted with COPD. Patient reports always has soreness to buttock area. Denies any treatment. Wound Care consulted for pressure injury right buttock. PAST MEDICAL HISTORY Medical History[1] PAST SURGICAL HISTORY Surgical History[2] FAMILY HISTORY Family History[3] SOCIAL HISTORY Social History[4] ALLERGIES Allergies[5] MEDICATIONS Medications Ordered Prior to Encounter[6] REVIEW OF SYSTEMS Pertinent items are noted in HPI. Objective: BP 108/67 (BP Location: Right arm, Patient Position: Sitting) Pulse 71 Temp 36.6 C (97.9 F) (Temporal) Resp 18 Ht 1.524 m (5') Wt 99.8 kg (220 lb) SpO2 92% BMI 42.97 kg/m PHYSICAL EXAM General appearance: in no apparent distress, well developed and well nourished, and alert, obese Skin: warm and dry Pulmonary: Normal effort, no respiratory distress, no cyanosis Right buttock: 1.0cmx0.3cmxUTD. Non-blanchable purple discoloration noted. No openings. No drainage. Periwound fragile 08/04/24 LABS CBC: Lab Results Component Value Date WBC 11.7 (H) 08/03/2024 HGB 13.7 08/04/2024 HCT 41.5 08/03/2024 MCV 90.8 08/03/2024 PLT 141 08/03/2024 BMP: Lab Results Component Value Date NA 136 08/03/2024 K 4.0 08/03/2024 CL 96 (L) 08/03/2024 CO2 29 08/03/2024 BUN 13 08/03/2024 CREATININE 0.79 08/03/2024 PT/INR: No results found for: PROTIME, INR Prealbumin: No results found for: PREALBUMIN Albumin:No components found for: LABALBU Sed Rate:No results found for: SEDRATE Micro: No components found for: BC Assessment/Plan: Nursing staff to perform dressing change: Right buttock: Pressure Injury (DTI) - Clean with soap and water, apply ET mix then leave FOREIGN CAR [employer]IC TID and PRN - Reposition q2hrs - Incontinent checks q2hrs - Waffle cushion while in chair Nutritional support Wound Care to follow Recommend to follow up at [facility] Outpatient wound care center after hospital discharge. Any questions or concerns please secure chat [facility] wound/ostomy. Thank you for the consult! I personally obtained the quinn and critical portions of the history and physical exam. I reviewed the labs, imaging studies, and electronic medical record. I reviewed the chart documentation and discussed the patient with treatment team members. I have edited the note to reflect my clinical findings and my assessment and plan. Please note, the time of this note does not reflect the time I saw this patient today, but the time of this documentaton. Portions of this note including HPI, ROS, impression/plan, and examination may have been copied forward from admission to today as to provide important historical information essential in contributing to medical decision making. Documentation has been reviewed and edited as necessary to support clinical decision making for today's visit and to reflect my own independent evaluation of this patient. Decision making for today's visit and to reflect my own independent evaluation of this patient. [1] No past medical history on file. [2] No past surgical history on file. [3] No family history on file. [4] Social History Tobacco Use Smoking status: Never Smokeless tobacco: Never [5] Allergies Allergen Reactions Morphine Hives Other Reaction(s): HIVES, ITCHING , NAUSEA Aspartame Codeine Duloxetine Unknown Lorazepam Oxycodone Wound Dressing Adhesive [6] No current facility-administered medications on file prior to encounter. Current Outpatient Medications on File Prior to Encounter Medication Sig Dispense Refill acetaminophen (Tylenol) 325 MG tablet Take 325 mg by mouth every 8 hours. Albuterol Sulfate 108 (90 Base) MCG/ACT aerosol powder Inhale 2 puffs every 4 hours as needed (SOB/ Wheezing). amLODIPine (Norvasc) 5 MG tablet Take 5 mg by mouth Every 24 hours. baclofen (Lioresal) 10 MG tablet Take 10 mg by mouth every 8 hours. beclomethasone HFA (Qvar) 40 MCG/ACT inhaler Inhale 40 mcg every 12 hours. benzonatate (Tessalon) 100 MG capsule Take 100 mg by mouth 3 times daily as needed for cough. bisacodyl (Dulcolax) 10 MG suppository Insert 10 mg into the rectum Daily as needed for constipation. cefdinir (Omnicef) 300 MG capsule Take 300 mg by mouth 2 times daily. escitalopram (Lexapro) 10 MG tablet Take 10 mg by mouth Nightly. Esomeprazole Magnesium 20 MG tablet delayed-release Take 20 mg by mouth Every 24 hours. furosemide (Lasix) 20 MG tablet Take 20 mg by mouth 2 times daily. hydrOXYzine HCl (Atarax) 25 MG tablet Take 25 mg by mouth 3 times daily. ipratropium-albuterol (Duo-Neb) 0.5-2.5 mg/3 mL nebulizer solution Inhale 3 mL every 4 hours as needed (cough). labetalol (Normodyne) 200 MG tablet Take 200 mg by mouth Every 24 hours. levothyroxine (Synthroid, Levoxyl) 137 MCG tablet Take 1 tablet by mouth Every 24 hours. loperamide (Imodium A-D) 2 MG tablet Take 2 mg by mouth every 4 hours as needed for diarrhea. mirabegron ER (Myrbetriq) 25 MG 24 hr tablet Take 25 mg by mouth daily. ondansetron (Zofran) 4 MG tablet Take 4 mg by mouth every 8 hours as needed for nausea or vomiting. potassium chloride CR (K-Tab) 20 MEQ ER tablet Take 20 mEq by mouth every 12 hours. senna-docusate (Senexon-S) 8.6-50 MG tablet Take 1 tablet by mouth Daily as needed for constipation. traMADol (Ultram) 50 MG tablet Take 50 mg by mouth 2 times daily as needed for moderate pain (4-6) or severe pain (7-10). traZODone (Desyrel) 50 MG tablet Take 50 mg by mouth Nightly. Cosigned by Arnoldo Malik DO at 08/09/2024 5:01 PM EDT [email or web address] Phone: 08-05-2024 Plan of care note Problem: Knowledge Deficit Goal: Patient/family/caregiver demonstrates understanding of disease process, treatment plan, medications, and discharge instructions Outcome: Not Progressing Problem: Potential for Compromised Skin Integrity Goal: Skin Integrity is Maintained or Improved Outcome: Progressing Problem: Potential for Compromised Skin Integrity Goal: Nutritional status is improving Outcome: Progressing Problem: Urinary Incontinence Goal: Perineal skin integrity is maintained or improved Outcome: Progressing Problem: Knowledge Deficit Goal: Patient/family/caregiver demonstrates understanding of disease process, treatment plan, medications, and discharge instructions Outcome: Not Progressing [facility] 08-04-2024 Note Care Management Prog ress Note Chart reviewed. Pt admitted to for c/o SOB and COPD exacerbation. Pt on high flow O2. Pulmonary consulted and following. Pt continues on IV antibiotics and IV steroids. Met with pt earlier at bedside and she told this TCC that she is from [facility]. This TCC called thanh Richards @ [phone] and she confirmed that that is where pt is from and plans for her to return at [place]. Daughter states pt sees MD at [facility] and does not have her own PCP. Also pt gets meds supplied form [facility]. PT saw and is recommending SNF at [place]. Informed daughter and she said that pt's insurance is OON with [facility] and they would have to private pay for SNF services. This TCC called [facility] liaison and she confirmed this as well. I will reach back out to daughter to discuss her options, pt may have to go back with [facility] PT/OT possibly? Will continue to follow for DC needs. Length of Stay (Days): 1 GMLOS: No GMLOS Documented [facility] 08-04-2024 Note Formatting of this n ote might be different from the original. Care Management Progress Note Chart reviewed. Pt admitted to 2E for c/o SOB and COPD exacerbation. Pt on high flow O2. Pulmonary consulted and following. Pt continues on IV antibiotics and IV steroids. Met with pt earlier at bedside and she told this TCC that she is from [facility]. This TCC called thanh Richards @ [phone] and she confirmed that that is where pt is from and plans for her to return at [place]. Daughter states pt sees MD at [facility] and does not have her own PCP. Also pt gets meds supplied form [facility]. PT saw and is recommending SNF at [place]. Informed daughter and she said that pt's insurance is OON with [facility] and they would have to private pay for SNF services. This TCC called [facility] liaison and she confirmed this as well. I will reach back out to daughter to discuss her options, pt may have to go back with [facility] PT/OT possibly? Will continue to follow for DC needs. Length of Stay (Days): 1 GMLOS: No GMLOS Documented [facility] 08-04-2024 Note Formatting of this n ote might be different from the original. Care Management Progress Note Chart reviewed. Pt admitted to for c/o SOB and COPD exacerbation. Pt on high flow O2. Pulmonary consulted and following. Pt continues on IV antibiotics and IV steroids. Met with pt earlier at bedside and she told this TCC that she is from [facility]. This TCC called daughter Ambika Richards @ [phone] and she confirmed that that is where pt is from and plans for her to return at [place]. Daughter states pt sees MD at [facility] and does not have her own PCP. Also pt gets meds supplied form [facility]. PT saw and is recommending SNF at [place]. Informed daughter and she said that pt's insurance is OON with [facility] and they would have to private pay for SNF services. This TCC called [facility] liaison and she confirmed this as well. I will reach back out to daughter to discuss her options, pt may have to go back with [facility] PT/OT possibly? Will continue to follow for DC needs. Length of Stay (Days): 1 GMLOS: No GMLOS Documented [facility] 08-04-2024 Nurse Note Images from the original note were not included. Wound Care consulted for Pressure Injury Prevention. Pt's Emile score= 15 on 08/04 Pt's pressure points assessed. Pt sitting in chair upon arrival for visit. Pt's Heels, Back, Elbows, Occiput and ears all intact. Pt stood with max assist from ribbon sweatband operator for posterior assessment. Blanchable erythema/purple tissues noted to bilateral buttocks. DTI noted to right buttock, linear area of nonblanchable purple tissues, measures 1cm x 0.3cm, with surrounding blanchable erythema and purple tissues. See photo below. Wound MUSHROOM CULTIVATOR group consulted. Brief in place. Pt incontinent of urine and stool. Brief removed, incontinence care provided, barrier ointment applied. Pt refused any preventative foam dressings at this time. Instructed pt on pressure injury prevention and importance of turning/postioning every 2hrs while in bed and every 15 min while sitting in chair. Instructed on use and care of waffle chair cushion. Verbalized understanding. Prevention Measures in place, including: [place] sheet with pillows/wedges, Heels elevated off bed on pillows, Zinc/Moisture Barrier ointment (applied), Waffle chair cushion (ordered for pt). Skin Care precaution order set in place. Dietitian consult order placed d/t wound. PT consult in place. D/W nursing staff. Right buttock Will continue to follow pt. Please secure chat for any questions or concerns. Mago Cavazos RN [facility] 08-04-2024 Note Referral placed to norberto garvin back to [facility] via [facility] per TCC request. Await review and response regarding ability to accept. TCC notified. [facility] 08-04-2024 Note Formatting of this n ote might be different from the original. Referral placed to return back to [facility] via [facility] per TCC request. Await review and response regarding ability to accept. TCC notified. T [facility] 08-04-2024 Note Formatting of this n ote might be different from the original. Referral placed to return back to [facility] via [facility] per TCC request. Await review and response regarding ability to accept. TCC notified. [facility] 08-04-2024 Note Hospitalist Progress Note 08/04/2024 [phone]: Please page me ([phone]) for patient care issues. [phone]: Please page [facility] Hospitalist for any issues. Subjective: Admit Date: 08/03/2024 PCP: No primary care provider on file. Room#: B2-243/B2-243 B Interval History: No overnight issues. Patient when asked how she is doing, replied horrible because she rather be home in her bed instead of here in the hospital as she does not like the hospital bed. Currently she denies chest pain but admits to still being sob, it is a little bit at rest but worse with exertion. No abdominal pain, nausea, vomiting. No fevers or chills. Adult diet Regular @[id number]@ 24HR INTAKE/OUTPUT: Intake/Output Summary (Last 24 hours) at 08/04/2024 1149 Last data filed at 08/04/2024 0942 Gross per 24 hour Intake 50 ml Output 150 ml Net -100 ml Past Medical History: Medical History[1] LABS: CBC: Recent Labs 08/03/24 1712 08/04/24 1135 WBC 11.7* -- RBC 4.57 -- HGB 13.2 13.7 HCT 41.5 -- MCV 90.8 -- RDW 14.1 -- PLT 141 -- BMP: Recent Labs 08/03/24 1712 NA 136 K 4.0 CL 96* CO2 29 BUN 13 CREATININE 0.79 GLUCOSE 90 CALCIUM 9.7 ANIONGAP 11 LIVER PROFILE: Recent Labs 08/03/24 1712 AST 17 ALT <6 BILITOT 0.8 ALKPHOS 85 PROT 7.7 PT/INR: No results for input(s): PROTIME, INR in the last 72 hours. CARDIAC ENZYMES: No results for input(s): TROPONINI in the last 72 hours. Procalcitonin: No results found for: PROCAL COVID-19 PCR: No results for input(s): COVID19 in the last 72 hours. Objective: Vitals: BP 146/75 Pulse 91 Temp 36.2 ?C (97.1 ?F) (Temporal) Resp 24 Ht 5' (1.524 m) Wt 220 lb (99.8 kg) SpO2 92% BMI 42.97 kg/m? Pulse Ox: SpO2 Av.3 % Min: 75 % Max: 95 % Supplemental O2: O2 Flow Rate (L/min): 15 L/min General appearance: No apparent distress, appears stated age, HEENT: Eyes: No scleral icterus Oral: Tongue is semi-moist Cardiovascular: S1/S2 heard, RRR Respiratory: Breath sounds decreased, sounds a little tight with end expiratory wheezing Abdomen: Soft, non-tender, non-distended bowel sounds positive Musculoskeletal: No obvious deformities seen Skin: No visible rashes or lesions. Medications: Continuous Meds[2] Scheduled Meds[3] Assessment Acute, acute on chronic, unstable/uncontrolled chronic problems/diagnoses: # Acute COPD exacerbation -continue breathing treatments and started on IV steroids # Acute hypoxemic, hypercapnic respiratory failure-continue nasal cannula oxygen, wean as able # Possible Pneumonia - PNA pcr pending. Viral pcr negative. Sputum cx pending. Urine legionella strep pending. Continue rocephin and azith. Stable chronic problems affecting care, new non-acute diagnoses: # Senile dementia with behavior # Chronic hypertension # Chronic hypothyroidism # GERD # COPD # Chronic back pain # Chronic diastolic heart failure # Osteoporosis # Hx of depression # Morbid obesity # Hx of medical noncompliance. Plan -resume home meds -continue NC O2, wean as able -continue IV rocephin and azith. PNA pcr pending. Viral pcr negative. Sputum cx pending. Urine legionella strep pending. -continue breathing tx, will start Solu-Medrol 40 mg IV every 8 hours -check daily labs Extended Emergency Contact Information Primary Emergency Contact: AMBIKA RICHARDS Mobile Relation: Daughter Preferred language: Citizen Of [place] [employer] Line Back Feeder needed? No Secondary Emergency Contact: LIONEL REYNOSO Mobile Relation: Son Preferred language: Citizen Of [place] Line Back Feeder needed? No Tate Givens MD Division of Hospitalist Medicine Inpatient Medical Services/[facility] [place] PAGER: Epic chat [1] No past medical history on file. [2] [3] azithromycin, 500 mg, IntraVENous, q24h cefTRIAXone, 1,000 mg, IntraVENous, q24h enoxaparin, 30 mg, SubCUTAneous, 2 times per day ipratropium-albuterol, 1 ampule, Nebulization, q4h WA sodium chloride 0.9%, 10 mL, IntraVENous, 2 times per day [facility] 08-04-2024 Consult note Associated Order (s): IP CONSULT TO PULMONOLOGY Images from the original note were not included. [facility] Pulmonary Medicine [address] [place] [address] Patient - Emily Peralta - 1940 Date of Admission - 08/03/2024 4:21 PM Date of Evaluation - 08/04/2024 Room - [facility] B Hospital Day - 1 Consulting - Tate Givens MD PCP - No primary care provider on file. Reason for Consult COPD exacerbation History of Present Illness Emily Peralta is a 83 y.o. female admitted for shortness of breath, hypoxemia. Patient has a past medical history of: - possible asthma - trivial smoking history - dementia - hypothyroidism - hypertension Patient is new to the [facility] pulmonary service, patient thinks she may have seen a wire spooler several years ago. She was admitted to [facility] 08/03/[address] [facility] for increasing shortness of breath with associated productive cough. She states she wears 2-4 LPM supplemental O2 nightly at the facility but not usually during the day. CXR concerning for RLL pneumonia and some pulmonary vascular congestion. She required up to 15 LPM high-flow nasal cannula. She endorses associated wheezing and chest tightness. She denies fever, chills, orthopnea, hemoptysis, abdominal pain, nausea, vomiting, diarrhea, constipation, lightheadedness, dizziness, dysuria, hematuria, melena, hematochezia, leg pain, leg swelling. She states she rarely smoked in the past, at most 1 pack her whole life but she did have significant second hand smoke exposure from first ex-. 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 She is hemodynamically stable and in no acute distress. Active Hospital Problem List Problem List[1] Medical History Past Medical History Medical History[2] Past Surgical History Surgical History[3] Social History Social History Socioeconomic History Marital status: Unknown Spouse name: Not on file Number of children: Not on file Years of education: Not on file Highest education level: Not on file Occupational History Not on file Tobacco Use Smoking status: Never Smokeless tobacco: Never Substance and Sexual Activity Alcohol use: Not on file Drug use: Not on file Sexual activity: Not on file Other Topics Concern Not on file Social History Narrative Not on file Social Drivers of Health Financial Resource Strain: Low Risk (08/04/2024) Overall Financial Resource Strain (CARDIA) Difficulty of Paying Living Expenses: Not very hard Food Insecurity: No Food Insecurity (08/04/2024) Hunger Vital Sign Worried About Running Out of Food in the Last Year: Never true Ran Out of Food in the Last Year: Never true Transportation Needs: No Transportation Needs (08/04/2024) PRAPARE - Transportation Lack of Transportation (Medical): No Lack of Transportation (Non-Medical): No Physical Activity: Inactive (08/04/2024) Exercise Vital Sign Days of Exercise per Week: 0 days Minutes of Exercise per Session: 0 min Stress: No Stress Concern Present (08/04/2024) [employer] - Occupational Stress Questionnaire Feeling of Stress : Only a little Social Connections: Unknown (08/04/2024) Social Connection and Isolation Panel [NHANES] Frequency of Communication with Friends and Family: Never Frequency of Social Gatherings with Friends and Family: Never Attends Hoahaoism Services: Never Active Member of Clubs or Organizations: No Attends Club or Organization Meetings: Never Marital Status: Patient declined Intimate Partner Violence: Not At Risk (08/04/2024) Humiliation, Afraid, Rape, and Kick questionnaire Fear of Current or Ex-Partner: No Emotionally Abused: No Physically Abused: No Sexually Abused: No Housing Stability: Low Risk (08/04/2024) Housing Stability Vital Sign Unable to Pay for Housing in the Last Year: No Number of Times Moved in the Last Year: 0 Homeless in the Last Year: No Family History Family History[4] Immunization History Immunization History Administered Date(s) Administered Moderna SARS-CoV-2 Vaccination 02/28/2021 Medications Current Medications Scheduled Meds[5] PRN Mediations PRN Meds[6] IV Drips/Infusions Continuous Meds[7] Home Medications Current Outpatient Medications Medication Instructions acetaminophen (TYLENOL) 325 mg, Every 8 hours Albuterol Sulfate 108 (90 Base) MCG/ACT aerosol powder 2 puffs, Every 4 hours PRN amLODIPine (NORVASC) 5 mg, Every 24 hours baclofen (LIORESAL) 10 mg, Every 8 hours beclomethasone HFA (QVAR) 40 mcg, Every 12 hours benzonatate (TESSALON) 100 mg, 3 times daily PRN bisacodyl (DULCOLAX) 10 mg, Daily PRN cefdinir (OMNICEF) 300 mg, 2 times daily escitalopram (LEXAPRO) 10 mg, Nightly Esomeprazole Magnesium 20 mg, Every 24 hours furosemide (LASIX) 20 mg, 2 times daily hydrOXYzine HCl (ATARAX) 25 mg, 3 times daily ipratropium-albuterol (Duo-Neb) 0.5-2.5 mg/3 mL nebulizer solution 3 mL, Every 4 hours PRN labetalol (NORMODYNE) 200 mg, Every 24 hours levothyroxine (Synthroid, Levoxyl) 137 MCG tablet 1 tablet, Every 24 hours loperamide (IMODIUM A-D) 2 mg, Every 4 hours PRN mirabegron ER (MYRBETRIQ) 25 mg, Daily ondansetron (ZOFRAN) 4 mg, Every 8 hours PRN potassium chloride CR (K-Tab) 20 MEQ ER tablet 20 mEq, Every 12 hours senna-docusate (Senexon-S) 8.6-50 MG tablet 1 tablet, Daily PRN traMADol (ULTRAM) 50 mg, 2 times daily PRN traZODone (DESYREL) 50 mg, Nightly Allergies Allergies[8] Review of Systems General Denies any fever or chills HEENT Denies any diplopia, tinnitus or vertigo Resp See HPI Cardiac Denies any chest pain, palpitations, claudication or edema GI Denies any melena, hematochezia, hematemesis or pyrosis Denies any frequency, urgency, hesitancy or incontinence Heme Denies bruising or bleeding easily Neuro Denies any focal motor or sensory deficits Psychiatric Denies anxiety, depression, suicidal ideation Skin Denies rashes, itching, open sores Vitals height is 5' (1.524 m) and weight is 220 lb (99.8 kg). Her temporal temperature is 36.2 C (97.1 F). Her blood pressure is 146/75 and her pulse is 91. Her respiration is 24 and oxygen saturation is 92%. Body mass index is 42.97 kg/m . 24 Hour intake and output Intake/Output Summary (Last 24 hours) at 08/04/2024 1222 Last data filed at 08/04/2024 0942 Gross per 24 hour Intake 50 ml Output 150 ml Net -100 ml Wt Readings from Last 3 Encounters: 08/04/24 220 lb (99.8 kg) Physical Exam General appearance: Awake, alert, no acute distress. On 15 liters/min SC. HEENT: Normocephalic, atraumatic. Pupils equil and round, External ear normal, conjunctivae normal, negative for scleral icterus. No congestion. Mallampati 3. Neck: ROM normal, supple, trachea midline. No lymphadenopathy Cardiovascular: Regular rate and rhythm. Heart sounds normal. Negative for murmur, friction rub, or gallop. Pulmonary: Effort normal, no respiratory distress. No stridor. No wheezing or crackles. Abdomen: Soft, non distended, non tender, bowel sounds normal. No palpable masses. No hepatomegaly Musculoskeletal: ROM normal, Negative for swelling, tenderness or deformity. Skin: Warm, dry. Skin color, texture, turgor normal. Negative for rashes or lesions. Extremities: No clubbing, cyanosis. Minimal lower extremity edema Neurological: No focal deficits. Alert and oriented x2 (did not know location). Lymphatics: No cervical or axillary lymphadenopathy Psychiatric: Mood, behavior, thought content normal. Cooperative with exam. Labs CBC Results from last 7 days Lab Units 08/04/24 1135 08/03/24 1712 WBC AUTO 10*3/uL -- 11.7* HEMOGLOBIN g/dL -- 13.2 HEMOGLOBIN BG g/dl 13.7 -- HEMATOCRIT % -- 41.5 PLATELETS 10*3/uL -- 141 BMP: Results from last 7 days Lab Units 08/03/24 1712 SODIUM mmol/L 136 POTASSIUM mmol/L 4.0 CHLORIDE mmol/L 96* CO2 mmol/L 29 BUN mg/dL 13 CREATININE mg/dL 0.79 GLUCOSE mg/dL 90 CALCIUM mg/dL 9.7 ABG: Results from last 7 days Lab Units 08/04/24 1135 SOURCE OF OXYGEN High Flow Oxygen Therapy (FiO2) LIVER PROFILE Results from last 7 days Lab Units 08/03/24 1712 ALK PHOS U/L 85 BILIRUBIN TOTAL mg/dL 0.8 PROTEIN TOTAL g/dL 7.7 ALT U/L <6 AST U/L 17 INR PTT No results found for: PTT Cultures N/A Pulmonary Function Tests (PFT's) No PFT on file Sleep History N/A Radiology All relevant/recent imaging was personally reviewed by me. Please see official radiology report for details. CXR (08/03/24) Limited exam due to obesity and hypoinflation lungs and portable technique. There appears to be hypoinflation lungs with pulmonary vascular prominence with prominent interstitial markings with small area of infiltrate or atelectasis right lower lobe and possible left lung base. Advanced degenerative joint disease both shoulders Assessment Acute on chronic hypoxemic respiratory failure Chronic hypercarbic respiratory failure CAP Possible asthma Trivial smoking history Morbid obesity Possible JOCELIN/OHS Recommendations CXR concerning for CAP involving the right lower lobe, agree with ceftriaxone/azithromycin, obtain sputum for analysis I question her diagnosis of COPD, she has a very trivial smoking history, it is possible she may have asthma, no wheezing on exam today, recommend monitoring off steroids for now, OK to continue scheduled Duonebs, consider CT chest without contrast for further evaluation of the parenchyma if no significant improvement by tomorrow VBG concerning for some component of chronic CO2 retention, possibly has underlying OHS, recommend against BiPAP nightly for now given significant O2 requirements, doubt she would be compliant with nocturnal PAP going forward Mild leg swelling noted, BNP elevated given age and BMI, consider routine TTE for further evaluation of LV and right heart function Wean supplemental O2 for goal SpO2 > 92% Pulmonary will continue to follow Thank you for allowing me to participate in the care of this patient, please feel free to reach out with any questions. Artur Neri MD Pulmonary & Critical Care Medicine [facility] [1] Patient Active Problem List Diagnosis COPD exacerbation (HCC) [2] No past medical history on file. [3] No past surgical history on file. [4] No family history on file. [5] amLODIPine, 5 mg, Oral, q24h azithromycin, 500 mg, IntraVENous, q24h cefTRIAXone, 1,000 mg, IntraVENous, q24h enoxaparin, 30 mg, SubCUTAneous, 2 times per day escitalopram, 10 mg, Oral, Nightly furosemide, 20 mg, Oral, BID ipratropium-albuterol, 1 ampule, Nebulization, q4h WA labetalol, 200 mg, Oral, q24h levothyroxine, 137 mcg, Oral, q24h mirabegron ER, 25 mg, Oral, Daily [START ON 08/05/2024] pantoprazole, 40 mg, Oral, qAM AC potassium chloride CR, 20 mEq, Oral, q12h sodium chloride 0.9%, 10 mL, IntraVENous, 2 times per day traZODone, 50 mg, Oral, Nightly [6] PRN medications: albuterol, hydrOXYzine pamoate, polyethylene glycol (PEG) 3350, senna-docusate sodium, sodium chloride, sodium chloride 0.9% [7] [8] Allergies Allergen Reactions Morphine Hives Other Reaction(s): HIVES, ITCHING , NAUSEA Aspartame Codeine Duloxetine Unknown Lorazepam Oxycodone Wound Dressing Adhesive [facility] 08-03-2024 History and physical note Attending History and Physical Admit Date: 08/03/2024 PCP: No primary care provider on file. CHIEF COMPLAINT: Shortness of breath Reason for Admission: COPD exacerbation History Obtained From: ER provider HISTORY OF PRESENT ILLNESS: Emily is a 83 y.o. female with past medical history significant for COPD. Patient presented to the emergency room from [facility] facility for shortness of breath. Patient has been struggling to breathe all day and the was refusing to come to the ER for evaluation. Patient was found to be in distress by the squad however patient refused to be placed on BiPAP. ER provider did talk to patient's daughter who stated that patient does not usually tolerate the steroids and has worse reaction. Patient is also refusing to wear a mask and while in the emergency room was constantly pulling it off. Past Medical History: Medical History[1] Past Surgical History: Surgical History[2] Social History: Social History Socioeconomic History Marital status: Unknown Spouse name: Not on file Number of children: Not on file Years of education: Not on file Highest education level: Not on file Occupational History Not on file Tobacco Use Smoking status: Not on file Smokeless tobacco: Not on file Substance and Sexual Activity Alcohol use: Not on file Drug use: Not on file Sexual activity: Not on file Other Topics Concern Not on file Social History Narrative Not on file Social Drivers of Health Financial Resource Strain: Not on file Food Insecurity: No Food Insecurity (10/22/2023) Received from [facility] Hunger Vital Sign Worried About Running Out of Food in the Last Year: Never true Ran Out of Food in the Last Year: Never true Transportation Needs: No Transportation Needs (10/22/2023) Received from [facility] PRAPARE - Transportation Lack of Transportation (Medical): No Lack of Transportation (Non-Medical): No Physical Activity: Not on file Stress: Not on file Social Connections: Not on file Intimate Partner Violence: Not on file Housing Stability: Low Risk (10/22/2023) Received from [facility] Housing Stability Vital Sign Unable to Pay for Housing in the Last Year: No Number of Places Lived in the Last Year: 1 Unstable Housing in the Last Year: No Family History: Family History[3] Medications Prior to Admission: Current Medications[4] Allergies: Allergies[5] REVIEW OF SYSTEMS: Constitutional: Negative for fever, chills, activity change and unexpected weight change. HEENT: Negative for congestion, postnasal drip and sneezing. Eyes: Negative for itching and visual disturbance. Respiratory: Positive for shortness of breath, hypoxemia and respiratory distress Cardiovascular: Negative for chest pain. Gastrointestinal: Negative for nausea, vomiting, abdominal pain, diarrhea and blood in stool. Genitourinary: Negative for dysuria, frequency and flank pain. Musculoskeletal: Negative for myalgias and joint swelling. Skin: Negative for rash. Neurological: Negative for dizziness, tremors, seizures, syncope, facial asymmetry, speech difficulty, weakness, numbness and headaches. Hematological: Negative for adenopathy. Psychiatric/Behavioral: Negative for suicidal ideas, behavioral problems, self-injury and dysphoric mood. Vitals: BP 124/58 Pulse 83 Temp 36.4 C (97.5 F) (Oral) Resp (!) 29 Ht 5' (1.524 m) Wt 220 lb (99.8 kg) SpO2 (!) 90% BMI 42.97 kg/m BMI Classification: Morbidly Obese (>40.0) Pulse Ox: SpO2 Av.3 % Min: 75 % Max: 90 % Supplemental O2: O2 Flow Rate (L/min): 15 L/min PHYSICAL EXAM: Constitutional: General: Patient is not in acute distress. Appearance: Elderly frail looking female, uncooperative HENT: Head: Normocephalic and atraumatic. Right Ear: External ear normal. Left Ear: External ear normal. Mouth/Throat: Mouth: Mucous membranes are moist. Pharynx: Oropharynx is clear. Eyes: Extraocular Movements: Extraocular movements intact. Conjunctiva/sclera: Conjunctivae normal. Pupils: Pupils are equal, round, and reactive to light. Cardiovascular: Comments: Regular rate and rhythm, normal S1-S2, no murmurs noted. Radial pulses 2+ and symmetric. Pulmonary: Effort: Pulmonary effort is normal. No respiratory distress. Breath sounds: Coarse breath sounds with bilateral expiratory wheezing Abdominal: Comments: The abdomen is soft, nondistended and nontender. There is no rebound tenderness or guarding. Bowel sounds are normal. Skin: General: Skin is warm and dry. Capillary Refill: Capillary refill takes less than 2 seconds. Coloration: Skin is not jaundiced or pale. Findings: No bruising or erythema. Neurological: General: No focal deficit present. Mental Status: Patient is pleasantly confused Musculoskeletal: NO edema DATA: CBC: Recent Labs 08/03/24 1712 WBC 11.7* RBC 4.57 HGB 13.2 HCT 41.5 MCV 90.8 RDW 14.1 PLT 141 BMP: Recent Labs 08/03/24 1712 NA 136 K 4.0 CL 96* CO2 29 BUN 13 CREATININE 0.79 GLUCOSE 90 CALCIUM 9.7 ANIONGAP 11 LIVER PROFILE: Recent Labs 08/03/24 1712 AST 17 ALT <6 BILITOT 0.8 ALKPHOS 85 PROT 7.7 PT/INR: No results for input(s): PROTIME, INR in the last 72 hours. CARDIAC ENZYMES: No results for input(s): TROPONINI in the last 72 hours. Procalcitonin: No results found for: PROCAL Urine Culture: No results found for this or any previous visit. COVID-19 PCR: No results for input(s): COVID19 in the last 72 hours. I reviewed: [x] laboratory results [x] radiographic results At the time of today's encounter. Pt was advised of the results. Data: (CAT1) Reviewed 3 or more labs/studies ordered by another provider not previously counted (each=1, panels count as 1). (LOW: 2x CAT1 or independent historian MOD: 3x CAT1 or 1x CAT3 EXTENSIVE: 3x CAT1 and 1x CAT3) Assessment Discussed management with the ED provider and agree with hospitalization. Acute, acute on chronic, unstable/uncontrolled chronic problems/diagnoses: Acute COPD exacerbation Acute hypoxemic, hypercapnic respiratory failure Stable chronic problems affecting care, new non-acute diagnoses: Senile dementia with behavior Plan As a result of the above findings & factors, the following mgmt was pursued: - Plan to admit the patient to the telemetry floor Will start the patient on bronchodilator treatment scheduled and as needed Oxygen supplementation per nasal cannula to maintain saturation greater than 90%. Patient is refusing the mask Will hold off on initiating the steroids per daughter's request No sign of active infection. Will hold off initiating the antibiotics Consult wire spooler - am labs, replace lytes prn - delirium precautions: increase activity and limit nighttime disturbances - DVT prophylaxis: enoxaparin and encourage ambulation Complexity: Acute illness with systemic symptoms (MOD). Risk: Admission to hospital-level care was considered or occurred (HIGH). Advance Directive: No Order Anticipated Discharge - Date - 08/05/2024 - Location - Skilled Facility - Pending the following -treatment for COPD exacerbation Total time spent (which include face to face and non face to face encounters) : 55 minutes. Toxic drug monitoring/narrow therapeutic index drug monitoring : # Drug name : Jocelynnox # Route administered : Subcutaneous # Method of monitoring : CBC Extended Emergency Contact Information Primary Emergency Contact: AMBIKA RICHARDS Mobile Relation: Daughter Preferred language: Citizen Of [place] Back Feeder needed? No Secondary Emergency Contact: LIONEL REYNOSO Mobile Relation: Son Preferred language: Citizen Of [place] Back Feeder needed? No [employer] Emily Peralta : 1940 Primary Care Physician: No primary care provider on file. The patient and/or family/surrogate voluntarily agreed to participate in ACP services. Patient s cognitive capacity: Alert, Orientedx3 Code Status: [x_] [FULL CODE - Continue all advanced life support: CPR,intubation,invasive procedures] [_] [DNR-CCA - DO NOT do CPR, intubation] [_] [DNR-DRY MIXER - Comfort care only] [_] DNR form [was/was not] signed Summary of discussion: The patient health care POA/ surrogate is the following: Patient. [Condition that instigated the ACP on this DOS, relevant PMH, functional status, goals of care, and whom this was discussed with including names and relationship to the patient, and any relevant advance care documentation discussion] I answered all the patient/family questions that I could within the range and scope of the current medical situation. We discussed the medical conditions, risks, benefits, outcomes, and goals of care at this time for the patient's medical issues at hand in the face of the patient's chronic issues and current presentation. Total time spent: 4 minutes were spent discussing the patient's resuscitation status, advance care planning, and end of life care, with patient and/or family/surrogate. Fransisco Pete MD Division of Hospitalist Medicine [facility] [1] No past medical history on file. [2] No past surgical history on file. [3] No family history on file. [4] Current Facility-Administered Medications: ipratropium-albuterol (Duo-Neb) 0.5-2.5 mg/3 mL nebulizer solution - Pyxis ADS Override Pull, , , , No current outpatient medications on file. [5] Allergies Allergen Reactions Aspartame Codeine Lorazepam Oxycodone Wound Dressing Adhesive Q-Layer Work Phone: 08-03-2024 Note Attending History an d Physical Admit Date: 08/03/2024 PCP: No primary care provider on file. CHIEF COMPLAINT: Shortness of breath Reason for Admission: COPD exacerbation History Obtained From: ER provider HISTORY OF PRESENT ILLNESS: Emily is a 83 y.o. female with past medical history significant for COPD. Patient presented to the emergency room from [facility] for shortness of breath. Patient has been struggling to breathe all day and the was refusing to come to the ER for evaluation. Patient was found to be in distress by the squad however patient refused to be placed on BiPAP. ER provider did talk to patient's daughter who stated that patient does not usually tolerate the steroids and has worse reaction. Patient is also refusing to wear a mask and while in the emergency room was constantly pulling it off. Past Medical History: Medical History[1] Past Surgical History: Surgical History[2] Social History: Social History Socioeconomic History Marital status: Unknown Spouse name: Not on file Number of children: Not on file Years of education: Not on file Highest education level: Not on file Occupational History Not on file Tobacco Use Smoking status: Not on file Smokeless tobacco: Not on file Substance and Sexual Activity Alcohol use: Not on file Drug use: Not on file Sexual activity: Not on file Other Topics Concern Not on file Social History Narrative Not on file Social Drivers of Health Financial Resource Strain: Not on file Food Insecurity: No Food Insecurity (10/22/2023) Received from [facility] Hunger Vital Sign Worried About Running Out of Food in the Last Year: Never true Ran Out of Food in the Last Year: Never true Transportation Needs: No Transportation Needs (10/22/2023) Received from [facility] PRAPARE - Transportation Lack of Transportation (Medical): No Lack of Transportation (Non-Medical): No Physical Activity: Not on file Stress: Not on file Social Connections: Not on file Intimate Partner Violence: Not on file Housing Stability: Low Risk (10/22/2023) Received from [facility] Housing Stability Vital Sign Unable to Pay for Housing in the Last Year: No Number of Places Lived in the Last Year: 1 Unstable Housing in the Last Year: No Family History: Family History[3] Medications Prior to Admission: Current Medications[4] Allergies: Allergies[5] REVIEW OF SYSTEMS: Constitutional: Negative for fever, chills, activity change and unexpected weight change. HEENT: Negative for congestion, postnasal drip and sneezing. Eyes: Negative for itching and visual disturbance. Respiratory: Positive for shortness of breath, hypoxemia and respiratory distress Cardiovascular: Negative for chest pain. Gastrointestinal: Negative for nausea, vomiting, abdominal pain, diarrhea and blood in stool. Genitourinary: Negative for dysuria, frequency and flank pain. Musculoskeletal: Negative for myalgias and joint swelling. Skin: Negative for rash. Neurological: Negative for dizziness, tremors, seizures, syncope, facial asymmetry, speech difficulty, weakness, numbness and headaches. Hematological: Negative for adenopathy. Psychiatric/Behavioral: Negative for suicidal ideas, behavioral problems, self-injury and dysphoric mood. Vitals: BP 124/58 Pulse 83 Temp 36.4 ?C (97.5 ?F) (Oral) Resp (!) 29 Ht 5' (1.524 m) Wt 220 lb (99.8 kg) SpO2 (!) 90% BMI 42.97 kg/m? BMI Classification: Morbidly Obese (>40.0) Pulse Ox: SpO2 Av.3 % Min: 75 % Max: 90 % Supplemental O2: O2 Flow Rate (L/min): 15 L/min PHYSICAL EXAM: Constitutional: General: Patient is not in acute distress. Appearance: Elderly frail looking female, uncooperative HENT: Head: Normocephalic and atraumatic. Right Ear: External ear normal. Left Ear: External ear normal. Mouth/Throat: Mouth: Mucous membranes are moist. Pharynx: Oropharynx is clear. Eyes: Extraocular Movements: Extraocular movements intact. Conjunctiva/sclera: Conjunctivae normal. Pupils: Pupils are equal, round, and reactive to light. Cardiovascular: Comments: Regular rate and rhythm, normal S1-S2, no murmurs noted. Radial pulses 2+ and symmetric. Pulmonary: Effort: Pulmonary effort is normal. No respiratory distress. Breath sounds: Coarse breath sounds with bilateral expiratory wheezing Abdominal: Comments: The abdomen is soft, nondistended and nontender. There is no rebound tenderness or guarding. Bowel sounds are normal. Skin: General: Skin is warm and dry. Capillary Refill: Capillary refill takes less than 2 seconds. Coloration: Skin is not jaundiced or pale. Findings: No bruising or erythema. Neurological: General: No focal deficit present. Mental Status: Patient is pleasantly confused Musculoskeletal: NO edema DATA: CBC: Recent Labs 08/03/24 1712 WBC 11.7* RBC 4.57 HGB 13.2 HCT 41.5 MCV 90.8 RDW 14. (more content not included)... [facility] 08-03-2024 History and physical note Attending History and Physical Admit Date: 08/03/2024 PCP: No primary care provider on file. CHIEF COMPLAINT: Shortness of breath Reason for Admission: COPD exacerbation History Obtained From: ER provider HISTORY OF PRESENT ILLNESS: Emily is a 83 y.o. female with past medical history significant for COPD. Patient presented to the emergency room from [facility] facility for shortness of breath. Patient has been struggling to breathe all day and the was refusing to come to the ER for evaluation. Patient was found to be in distress by the squad however patient refused to be placed on BiPAP. ER provider did talk to patient's daughter who stated that patient does not usually tolerate the steroids and has worse reaction. Patient is also refusing to wear a mask and while in the emergency room was constantly pulling it off. Past Medical History: Medical History[1] Past Surgical History: Surgical History[2] Social History: Social History Socioeconomic History Marital status: Unknown Spouse name: Not on file Number of children: Not on file Years of education: Not on file Highest education level: Not on file Occupational History Not on file Tobacco Use Smoking status: Not on file Smokeless tobacco: Not on file Substance and Sexual Activity Alcohol use: Not on file Drug use: Not on file Sexual activity: Not on file Other Topics Concern Not on file Social History Narrative Not on file Social Drivers of Health Financial Resource Strain: Not on file Food Insecurity: No Food Insecurity (10/22/2023) Received from [facility] Hunger Vital Sign Worried About Running Out of Food in the Last Year: Never true Ran Out of Food in the Last Year: Never true Transportation Needs: No Transportation Needs (10/22/2023) Received from [facility] PRAPARE - Transportation Lack of Transportation (Medical): No Lack of Transportation (Non-Medical): No Physical Activity: Not on file Stress: Not on file Social Connections: Not on file Intimate Partner Violence: Not on file Housing Stability: Low Risk (10/22/2023) Received from [facility] Housing Stability Vital Sign Unable to Pay for Housing in the Last Year: No Number of Places Lived in the Last Year: 1 Unstable Housing in the Last Year: No Family History: Family History[3] Medications Prior to Admission: Current Medications[4] Allergies: Allergies[5] REVIEW OF SYSTEMS: Constitutional: Negative for fever, chills, activity change and unexpected weight change. HEENT: Negative for congestion, postnasal drip and sneezing. Eyes: Negative for itching and visual disturbance. Respiratory: Positive for shortness of breath, hypoxemia and respiratory distress Cardiovascular: Negative for chest pain. Gastrointestinal: Negative for nausea, vomiting, abdominal pain, diarrhea and blood in stool. Genitourinary: Negative for dysuria, frequency and flank pain. Musculoskeletal: Negative for myalgias and joint swelling. Skin: Negative for rash. Neurological: Negative for dizziness, tremors, seizures, syncope, facial asymmetry, speech difficulty, weakness, numbness and headaches. Hematological: Negative for adenopathy. Psychiatric/Behavioral: Negative for suicidal ideas, behavioral problems, self-injury and dysphoric mood. Vitals: BP 124/58 Pulse 83 Temp 36.4 C (97.5 F) (Oral) Resp (!) 29 Ht 5' (1.524 m) Wt 220 lb (99.8 kg) SpO2 (!) 90% BMI 42.97 kg/m BMI Classification: Morbidly Obese (>40.0) Pulse Ox: SpO2 Av.3 % Min: 75 % Max: 90 % Supplemental O2: O2 Flow Rate (L/min): 15 L/min PHYSICAL EXAM: Constitutional: General: Patient is not in acute distress. Appearance: Elderly frail looking female, uncooperative HENT: Head: Normocephalic and atraumatic. Right Ear: External ear normal. Left Ear: External ear normal. Mouth/Throat: Mouth: Mucous membranes are moist. Pharynx: Oropharynx is clear. Eyes: Extraocular Movements: Extraocular movements intact. Conjunctiva/sclera: Conjunctivae normal. Pupils: Pupils are equal, round, and reactive to light. Cardiovascular: Comments: Regular rate and rhythm, normal S1-S2, no murmurs noted. Radial pulses 2+ and symmetric. Pulmonary: Effort: Pulmonary effort is normal. No respiratory distress. Breath sounds: Coarse breath sounds with bilateral expiratory wheezing Abdominal: Comments: The abdomen is soft, nondistended and nontender. There is no rebound tenderness or guarding. Bowel sounds are normal. Skin: General: Skin is warm and dry. Capillary Refill: Capillary refill takes less than 2 seconds. Coloration: Skin is not jaundiced or pale. Findings: No bruising or erythema. Neurological: General: No focal deficit present. Mental Status: Patient is pleasantly confused Musculoskeletal: NO edema DATA: CBC: Recent Labs 08/03/24 1712 WBC 11.7* RBC 4.57 HGB 13.2 HCT 41.5 MCV 90.8 RDW 14.1 PLT 141 BMP: Recent Labs 08/03/24 1712 NA 136 K 4.0 CL 96* CO2 29 BUN 13 CREATININE 0.79 GLUCOSE 90 CALCIUM 9.7 ANIONGAP 11 LIVER PROFILE: Recent Labs 08/03/24 1712 AST 17 ALT <6 BILITOT 0.8 ALKPHOS 85 PROT 7.7 PT/INR: No results for input(s): PROTIME, INR in the last 72 hours. CARDIAC ENZYMES: No results for input(s): TROPONINI in the last 72 hours. Procalcitonin: No results found for: PROCAL Urine Culture: No results found for this or any previous visit. COVID-19 PCR: No results for input(s): COVID19 in the last 72 hours. I reviewed: [x] laboratory results [x] radiographic results At the time of today's encounter. Pt was advised of the results. Data: (CAT1) Reviewed 3 or more labs/studies ordered by another provider not previously counted (each=1, panels count as 1). (LOW: 2x CAT1 or independent historian MOD: 3x CAT1 or 1x CAT3 EXTENSIVE: 3x CAT1 and 1x CAT3) Assessment Discussed management with the ED provider and agree with hospitalization. Acute, acute on chronic, unstable/uncontrolled chronic problems/diagnoses: Acute COPD exacerbation Acute hypoxemic, hypercapnic respiratory failure Stable chronic problems affecting care, new non-acute diagnoses: Senile dementia with behavior Plan As a result of the above findings & factors, the following mgmt was pursued: - Plan to admit the patient to the telemetry floor Will start the patient on bronchodilator treatment scheduled and as needed Oxygen supplementation per nasal cannula to maintain saturation greater than 90%. Patient is refusing the mask Will hold off on initiating the steroids per daughter's request No sign of active infection. Will hold off initiating the antibiotics Consult wire spooler - am labs, replace lytes prn - delirium precautions: increase activity and limit nighttime disturbances - DVT prophylaxis: enoxaparin and encourage ambulation Complexity: Acute illness with systemic symptoms (MOD). Risk: Admission to hospital-level care was considered or occurred (HIGH). Advance Directive: No Order Anticipated Discharge - Date - 08/05/2024 - Location - Skilled Facility - Pending the following -treatment for COPD exacerbation Total time spent (which include face to face and non face to face encounters) : 55 minutes. Toxic drug monitoring/narrow therapeutic index drug monitoring : # Drug name : Lovenox # Route administered : Subcutaneous # Method of monitoring : CBC Extended Emergency Contact Information Primary Emergency Contact: IRVINAMBIKA Vigil Mobile Relation: Daughter Preferred language: Citizen Of [place] Lay[place] Line Back Feeder needed? No Secondary Emergency Contact: LIONEL REYNOSO Mobile Relation: Son Preferred language: Citizen Of [place] Line Back Feeder needed? No [employer] Emily Peralta : 1940 Primary Care Physician: No primary care provider on file. The patient and/or family/surrogate voluntarily agreed to participate in ACP services. Patient s cognitive capacity: Alert, Orientedx3 Code Status: [x_] [FULL CODE - Continue all advanced life support: CPR,intubation,invasive procedures] [_] [DNR-CCA - DO NOT do CPR, intubation] [_] [DNR-DRY MIXER - Comfort care only] [_] DNR form [was/was not] signed Summary of discussion: The patient health care POA/ surrogate is the following: Patient. [Condition that instigated the ACP on this DOS, relevant PMH, functional status, goals of care, and whom this was discussed with including names and relationship to the patient, and any relevant advance care documentation discussion] I answered all the patient/family questions that I could within the range and scope of the current medical situation. We discussed the medical conditions, risks, benefits, outcomes, and goals of care at this time for the patient's medical issues at hand in the face of the patient's chronic issues and current presentation. Total time spent: 4 minutes were spent discussing the patient's resuscitation status, advance care planning, and end of life care, with patient and/or family/surrogate. Fransisco Pete MD Division of Hospitalist Medicine [facility] [1] No past medical history on file. [2] No past surgical history on file. [3] No family history on file. [4] Current Facility-Administered Medications: ipratropium-albuterol (Duo-Neb) 0.5-2.5 mg/3 mL nebulizer solution - Pyxis ADS Override Pull, , , , No current outpatient medications on file. [5] Allergies Allergen Reactions Aspartame Codeine Lorazepam Oxycodone Wound Dressing Adhesive documented in this encounter [facility] 08-03-2024 Emergency department Note Patient was placed on a Venti mask at 50% FiO2. [facility] 08-03-2024 Emergency department Note Patient was placed on a Venti mask at 50% FiO2. Upon arrival the patient was very agitated and was refusing care. After providing a lot of education regarding the patient's condition she became more cooperative. Patient refuses to allow any mask on her face and pulls it off. She was given instructions that she needed to keep it on but the patient continues to be very resistant.Patient cites she is not going to get any better and prefers to be left alone. ED Attending is aware. EMERGENCY DEPARTMENT ENCOUNTER Pt Name: Emily Peralta Birthdate 1940 Date of evaluation: 08/03/2024 ED Provider: Mejgon Z Ann, DO CHIEF COMPLAINT Chief Complaint Patient presents with Shortness of Breath HISTORY OF PRESENT ILLNESS (Location/Symptom, Timing/Onset, Context/Setting, Quality, Duration, Modifying Factors, Severity) Note limiting factors. I wore appropriate PPE for the entirety of this encounter. HPI Emily Peralta is a 83 y.o. who presents to the emergency department with chief complaint of shortness of breath. Patient sent to the ED by her nursing facility due to their concerns for shortness of breath. She also has a productive cough. Patient reports that her symptoms are chronic due to COPD. She does not wear oxygen at baseline. States that she did not want to come to the ER today. She denies chest pain, leg swelling or other new symptoms. Nursing Notes were reviewed. Limitations to history: None Outside historians: Family REVIEW OF SYSTEMS Review of Systems Pertinent positives and negatives as per HPI. PAST MEDICAL HISTORY Medical History[1] SURGICAL HISTORY Surgical History[2] CURRENT MEDICATIONS Previous Medications No medications on file ALLERGIES Aspartame, Codeine, Lorazepam, Oxycodone, and Wound dressing adhesive FAMILY HISTORY Family History[3] SOCIAL HISTORY Social History[4] SCREENINGS PHYSICAL EXAM ED Triage Vitals Temp Heart Rate Resp BP 08/03/24 1630 08/03/24 1630 08/03/24 1630 08/03/24 1630 36.4 C (97.5 F) 87 (!) 36 122/69 SpO2 Temp Source Heart Rate Source Patient Position 08/03/24 1630 08/03/24 1630 08/03/24 1630 08/03/24 1630 (!) 75 % Oral Monitor Sitting BP Location FiO2 (%) 08/03/24 1630 08/03/24 1706 Right arm 100 % Physical Exam Vitals and nursing note reviewed. Constitutional: General: She is not in acute distress. Appearance: She is well-developed. She is ill-appearing. She is not toxic-appearing. HENT: Head: Normocephalic and atraumatic. Nose: Nose normal. Eyes: Extraocular Movements: Extraocular movements intact. Neck: Vascular: No JVD. Cardiovascular: Rate and Rhythm: Normal rate and regular rhythm. Pulses: Normal pulses. Heart sounds: Normal heart sounds. Pulmonary: Effort: Tachypnea and accessory muscle usage present. No respiratory distress. Breath sounds: Decreased breath sounds and wheezing present. Abdominal: Palpations: Abdomen is soft. Tenderness: There is no abdominal tenderness. Musculoskeletal: General: Normal range of motion. Cervical back: Normal range of motion and neck supple. Right lower leg: No tenderness. No edema. Left lower leg: No tenderness. No edema. Skin: General: Skin is warm and dry. Capillary Refill: Capillary refill takes less than 2 seconds. Neurological: General: No focal deficit present. Mental Status: She is alert. Mental status is at baseline. She is disoriented. DIAGNOSTIC RESULTS Procedures/EKG: EKG was reviewed by myself. [facility] RAD[facility]OLOGY (Per Emergency Physician): Interpretation per the Radiologist below, if available at the time of this note: XR chest 1 view Final Result ED BEDSIDE ULTRASOUND: Performed by ED Physician - none LABS: Labs Reviewed CBC WITH AUTO DIFFERENTIAL - Abnormal Result Value Auto WBC 11.7 (*) RBC 4.57 Hemoglobin 13.2 Hematocrit 41.5 MCV 90.8 MCH 28.9 MCHC 31.8 RDW 14.1 Platelets 141 MPV 9.7 COMPREHENSIVE METABOLIC PANEL - Abnormal SODIUM 136 POTASSIUM 4.0 CHLORIDE 96 (*) CARBON DIOXIDE 29 ANION GAP 11 UREA NITROGEN 13 CREATININE 0.79 GLUCOSE 90 CALCIUM 9.7 AST (SGOT) 17 ALT <6 ALKALINE PHOSPHATASE 85 ALBUMIN 3.0 (*) BILIRUBIN, TOTAL 0.8 TOTAL PROTEIN 7.7 eGFR 73.4 NT PRO BNP - Abnormal NT PRO BNP 890 (*) MANUAL DIFFERENTIAL (CELLAVISION) - Abnormal RBC Morphology abnormal Ovalocytes Rare (*) Stomatocytes Slight (*) Giant PLTs Rare (*) Neutrophils % 82 Bands % 2 (*) Lymphocytes % 9 (*) Monocytes % 6 Myelocytes % 1 (*) Absolute Neutrophil Count 9.8 (*) Bands Absolute 0.2 (*) Lymphocytes Absolute 1.1 Monocytes Absolute 0.7 Myelocytes Absolute 0.1 (*) Neutrophils Manual 83 Lymphocytes Manual 9 Monocytes Manual 6 Eosinophils Manual Basophils Manual Bands Manual 2 Metamyelocytes Manual Myelocytes Manual 1 Promyelocytes Manual Blasts Manual Atypical Lymphocytes Manual Unclassified Cells, Manual HIGH SENSITIVITY TROPONIN, SERIAL BASELINE - Normal Troponin HS Serial Baseline 3 HIGH SENSITIVITY TROPONIN, SERIAL, SECOND TEST - Normal 2h Troponin HS (Serial 2nd Troponin) 4 All other labs were within normal range or not returned as of this dictation. EMERGENCY DEPARTMENT COURSE and DIFFERENTIAL DIAGNOSIS/MDM: Vitals: Vitals: 08/03/24 1630 08/03/24 1715 08/03/24 1730 08/03/24 1742 BP: 122/69 124/58 BP Location: Right arm Patient Position: Sitting Pulse: 87 89 82 83 Resp: (!) 36 26 22 (!) 29 Temp: 36.4 C (97.5 F) TempSrc: Oral SpO2: (!) 75% (!) 88% (!) 88% (!) 90% Weight: 99.8 kg (220 lb) Height: 1.524 m (5') Diagnoses as of 08/03/242138 COPD exacerbation (HCC) Acute on chronic congestive heart failure, unspecified heart failure type (HCC) The patient presented with chief complaint of shortness of breath. The differential diagnosis associated with this patient's presentation includes COPD exacerbation, pneumonia, ACS. Our workup consisted of ordering/reviewing: Labs and chest x-ray. Patient is in agreement with this plan. Medications ipratropium-albuterol (Duo-Neb) 0.5-2.5 mg/3 mL nebulizer solution - Pyxis ADS Override Pull (has no administration in time range) hydrOXYzine pamoate (Vistaril) capsule 25 mg (25 mg Oral Given 08/03/24 170) ipratropium-albuterol (Duo-Neb) 0.5-2.5 mg/3 mL nebulizer solution 9 mL (9 mL Nebulization Given 08/03/24 1710) magnesium sulfate IVPB premix 2,000 mg (0 mg IntraVENous Stopped 08/03/241951) furosemide (Lasix) injection 40 mg (40 mg IntraVENous Given 08/03/242006) traMADol (Ultram) tablet 50 mg (50 mg Oral Given 08/03/242006) REVAL: 83-year-old female with history of COPD presenting to the ED for nursing facility concerns of shortness of breath and cough. Patient was aggressive with EMS and with nursing staff on arrival because she did not want to be in the emergency department. She did not want any treatment but after discussion that we are concerned that she is hypoxic, she was finally agreeable. Patient was initially saturating 75% on room air and placed on nasal cannula but despite that was saturating in the low 80s. We temporarily placed her on a nonrebreather and eventually a Ventimask because she refused BiPAP. She is tachypneic and has diminished breath sounds throughout as well as wheezing throughout. Does not appear to be fluid overloaded. Patient given DuoNebs and IV magnesium. She is refusing prednisone as it makes her agitated. Chest x-ray shows vascular congestion, BNP is only 890. Troponin is normal. EKG is nonischemic. Suspect that the patient's symptoms are due to COPD exacerbation. Patient refusing to be treated and was attempting to leave AGAINST MEDICAL ADVICE however she is only oriented to person and place. She does not have the capacity to make medical decisions at this time. I called the patient's daughter who is her POA because I am concerned that if the patient leaves tonight, she can become hypoxic or hypercapnic and this could lead to respiratory failure and . Patient and her daughter both understand these risks and daughter was able to convince the patient to stay in the emergency department. Daughter states that she is the POA and ultimately it is her decision and we can keep the patient here to be treated for her COPD exacerbation. She understands that her mom is confused and I believe it is probably due to CO2 retention from her COPD. Daughter reports that patient will refuse BiPAP due to being claustrophobic so we placed her on high flow nasal cannula. She will also be given IV Lasix due to some of the vascular congestion on chest xray. She was given her home dose of tramadol for her back pain and was also requesting something for anxiety. She had initially received Vistaril but I do not believe giving her any benzodiazepines is appropriate given her respiratory status. Patient will be admitted for management of COPD. CRITICAL CARE TIME Total Critical Care time was 35 minutes, excluding separately reportable procedures. There was a high probability of clinically significant/life threatening deterioration in the patient's condition which required my urgent intervention. CONSULTS: None PROCEDURES: Unless otherwise noted below, none Procedures Patients symptoms are consistent with sepsis, severe sepsis, or septic shock (If yes use .sepsiscoremeasure): FINAL IMPRESSION 1. COPD exacerbation (HCC) 2. Acute on chronic congestive heart failure, unspecified heart failure type (HCC) DISPOSITION Admit 08/03/2024 07:26:06 PM PATIENT REFERRED TO: No follow-up provider specified. DISCHARGE MEDICATIONS: New Prescriptions No medications on file (Comment: Please note this report has been produced using speech recognition software and may contain errors related to that system including errors in grammar, punctuation, and spelling, as well as words and phrases that may be inappropriate. If there are any questions or concerns please feel free to contact the dictating provider for clarification.) Stacia Juarez DO (electronically signed) Emergency Medicine Provider [1] No past medical history on file. [2] No past surgical history on file. [3] No family history on file. [4] Social History Socioeconomic History Marital status: Unknown Social Drivers of Health Food Insecurity: No Food Insecurity (10/22/2023) Received from [facility] Hunger Vital Sign Worried About Running Out of Food in the Last Year: Never true Ran Out of Food in the Last Year: Never true Transportation Needs: No Transportation Needs (10/22/2023) Received from [facility] PRAPARE - Transportation Lack of Transportation (Medical): No Lack of Transportation (Non-Medical): No Housing Stability: Low Risk (10/22/2023) Received from [facility] Housing Stability Vital Sign Unable to Pay for Housing in the Last Year: No Number of Places Lived in the Last Year: 1 Unstable Housing in the Last Year: No Stacia Juarez DO 08/03/242146 Patient arrives from SNF via EMS due to SOB and low pulse oximetry readings. Ems reports the capnography was in the 50's for CO2 level. The SNF was trying all day to get the patient to agree to come to the ED for evaluation and she refused. Patient finally agrees but refused the EMS BiPap. documented in this encounter [facility] 08-03-2024 Emergency department Note Upon arrival the patient was very agitated and was refusing care. After providing a lot of education regarding the patient's condition she became more cooperative. Patient refuses to allow any mask on her face and pulls it off. She was given instructions that she needed to keep it on but the patient continues to be very resistant.Patient cites she is not going to get any better and prefers to be left alone. ED Attending is aware. [facility] 08-03-2024 Note Upon arrival the ancelmo silvestre was very agitated and was refusing care. After providing a lot of education regarding the patient's condition she became more cooperative. Patient refuses to allow any mask on her face and pulls it off. She was given instructions that she needed to keep it on but the patient continues to be very resistant.Patient cites she is not going to get any better and prefers to be left alone. ED Attending is aware. [facility] 08-03-2024 Emergency department Triage note Patient arrives from SNF via EMS due to SOB and low pulse oximetry readings. Ems reports the capnography was in the 50's for CO2 level. The SNF was trying all day to get the patient to agree to come to the ED for evaluation and she refused. Patient finally agrees but refused the EMS BiPap. [facility] 08-03-2024 Physician Emergency department Note EMERGENCY DEPARTMENT ENCOUNTER Pt Name: Emily Peralta Birthdate 1940 Date of evaluation: 08/03/2024 ED Provider: Stacia Juarez DO CHIEF COMPLAINT Chief Complaint Patient presents with Shortness of Breath HISTORY OF PRESENT ILLNESS (Location/Symptom, Timing/Onset, Context/Setting, Quality, Duration, Modifying Factors, Severity) Note limiting factors. I wore appropriate PPE for the entirety of this encounter. HPI Emily Peralta is a 83 y.o. who presents to the emergency department with chief complaint of shortness of breath. Patient sent to the ED by her nursing facility due to their concerns for shortness of breath. She also has a productive cough. Patient reports that her symptoms are chronic due to COPD. She does not wear oxygen at baseline. States that she did not want to come to the ER today. She denies chest pain, leg swelling or other new symptoms. Nursing Notes were reviewed. Limitations to history: None Outside historians: Family REVIEW OF SYSTEMS Review of Systems Pertinent positives and negatives as per HPI. PAST MEDICAL HISTORY Medical History[1] SURGICAL HISTORY Surgical History[2] CURRENT MEDICATIONS Previous Medications No medications on file ALLERGIES Aspartame, Codeine, Lorazepam, Oxycodone, and Wound dressing adhesive FAMILY HISTORY Family History[3] SOCIAL HISTORY Social History[4] SCREENINGS PHYSICAL EXAM ED Triage Vitals Temp Heart Rate Resp BP 08/03/24 1630 08/03/24 1630 08/03/24 1630 08/03/24 1630 36.4 C (97.5 F) 87 (!) 36 122/69 SpO2 Temp Source Heart Rate Source Patient Position 08/03/24 1630 08/03/24 1630 08/03/24 1630 08/03/24 1630 (!) 75 % Oral Monitor Sitting BP Location FiO2 (%) 08/03/24 1630 08/03/24 1706 Right arm 100 % Physical Exam Vitals and nursing note reviewed. Constitutional: General: She is not in acute distress. Appearance: She is well-developed. She is ill-appearing. She is not toxic-appearing. HENT: Head: Normocephalic and atraumatic. Nose: Nose normal. Eyes: Extraocular Movements: Extraocular movements intact. Neck: Vascular: No JVD. Cardiovascular: Rate and Rhythm: Normal rate and regular rhythm. Pulses: Normal pulses. Heart sounds: Normal heart sounds. Pulmonary: Effort: Tachypnea and accessory muscle usage present. No respiratory distress. Breath sounds: Decreased breath sounds and wheezing present. Abdominal: Palpations: Abdomen is soft. Tenderness: There is no abdominal tenderness. Musculoskeletal: General: Normal range of motion. Cervical back: Normal range of motion and neck supple. Right lower leg: No tenderness. No edema. Left lower leg: No tenderness. No edema. Skin: General: Skin is warm and dry. Capillary Refill: Capillary refill takes less than 2 seconds. Neurological: General: No focal deficit present. Mental Status: She is alert. Mental status is at baseline. She is disoriented. DIAGNOSTIC RESULTS Procedures/EKG: EKG was reviewed by myself. Physician EKG interpretation can be found in [facility] RADIOLOGY (Per Emergency Physician): Interpretation per the Radiologist below, if available at the time of this note: XR chest 1 view Final Result ED BEDSIDE ULTRASOUND: Performed by ED Physician - none LABS: Labs Reviewed CBC WITH AUTO DIFFERENTIAL - Abnormal Result Value Auto WBC 11.7 (*) RBC 4.57 Hemoglobin 13.2 Hematocrit 41.5 MCV 90.8 MCH 28.9 MCHC 31.8 RDW 14.1 Platelets 141 MPV 9.7 COMPREHENSIVE METABOLIC PANEL - Abnormal SODIUM 136 POTASSIUM 4.0 CHLORIDE 96 (*) CARBON DIOXIDE 29 ANION GAP 11 UREA NITROGEN 13 CREATININE 0.79 GLUCOSE 90 CALCIUM 9.7 AST (SGOT) 17 ALT <6 ALKALINE PHOSPHATASE 85 ALBUMIN 3.0 (*) BILIRUBIN, TOTAL 0.8 TOTAL PROTEIN 7.7 eGFR 73.4 NT PRO BNP - Abnormal NT PRO BNP 890 (*) MANUAL DIFFERENTIAL (CELLAVISION) - Abnormal RBC Morphology abnormal Ovalocytes Rare (*) Stomatocytes Slight (*) Giant PLTs Rare (*) Neutrophils % 82 Bands % 2 (*) Lymphocytes % 9 (*) Monocytes % 6 Myelocytes % 1 (*) Absolute Neutrophil Count 9.8 (*) Bands Absolute 0.2 (*) Lymphocytes Absolute 1.1 Monocytes Absolute 0.7 Myelocytes Absolute 0.1 (*) Neutrophils Manual 83 Lymphocytes Manual 9 Monocytes Manual 6 Eosinophils Manual Basophils Manual Bands Manual 2 Metamyelocytes Manual Myelocytes Manual 1 Promyelocytes Manual Blasts Manual Atypical Lymphocytes Manual Unclassified Cells, Manual HIGH SENSITIVITY TROPONIN, SERIAL BASELINE - Normal Troponin HS Serial Baseline 3 HIGH SENSITIVITY TROPONIN, SERIAL, SECOND TEST - Normal 2h Troponin HS (Serial 2nd Troponin) 4 All other labs were within normal range or not returned as of this dictation. EMERGENCY DEPARTMENT COURSE and DIFFERENTIAL DIAGNOSIS/MDM: Vitals: Vitals: 08/03/24 1630 08/03/24 1715 08/03/24 1730 08/03/24 1742 BP: 122/69 124/58 BP Location: Right arm Patient Position: Sitting Pulse: 87 89 82 83 Resp: (!) 36 26 22 (!) 29 Temp: 36.4 C (97.5 F) TempSrc: Oral SpO2: (!) 75% (!) 88% (!) 88% (!) 90% Weight: 99.8 kg (220 lb) Height: 1.524 m (5') Diagnoses as of 08/03/242138 COPD exacerbation (HCC) Acute on chronic congestive heart failure, unspecified heart failure type (HCC) The patient presented with chief complaint of shortness of breath. The differential diagnosis associated with this patient's presentation includes COPD exacerbation, pneumonia, ACS. Our workup consisted of ordering/reviewing: Labs and chest x-ray. Patient is in agreement with this plan. Medications ipratropium-albuterol (Duo-Neb) 0.5-2.5 mg/3 mL nebulizer solution - Pyxis ADS Override Pull (has no administration in time range) hydrOXYzine pamoate (Vistaril) capsule 25 mg (25 mg Oral Given 08/03/241701) ipratropium-albuterol (Duo-Neb) 0.5-2.5 mg/3 mL nebulizer solution 9 mL (9 mL Nebulization Given 08/03/241709) magnesium sulfate IVPB premix 2,000 mg (0 mg IntraVENous Stopped 08/03/241951) furosemide (Lasix) injection 40 mg (40 mg IntraVENous Given 08/03/242006) traMADol (Ultram) tablet 50 mg (50 mg Oral Given 08/03/242006) REVAL: 83-year-old female with history of COPD presenting to the ED for nursing facility concerns of shortness of breath and cough. Patient was aggressive with EMS and with nursing staff on arrival because she did not want to be in the emergency department. She did not want any treatment but after discussion that we are concerned that she is hypoxic, she was finally agreeable. Patient was initially saturating 75% on room air and placed on nasal cannula but despite that was saturating in the low 80s. We temporarily placed her on a nonrebreather and eventually a Ventimask because she refused BiPAP. She is tachypneic and has diminished breath sounds throughout as well as wheezing throughout. Does not appear to be fluid overloaded. Patient given DuoNebs and IV magnesium. She is refusing prednisone as it makes her agitated. Chest x-ray shows vascular congestion, BNP is only 890. Troponin is normal. EKG is nonischemic. Suspect that the patient's symptoms are due to COPD exacerbation. Patient refusing to be treated and was attempting to leave AGAINST MEDICAL ADVICE however she is only oriented to person and place. She does not have the capacity to make medical decisions at this time. I called the patient's daughter who is her POA because I am concerned that if the patient leaves tonight, she can become hypoxic or hypercapnic and this could lead to respiratory failure and . Patient and her daughter both understand these risks and daughter was able to convince the patient to stay in the emergency department. Daughter states that she is the POA and ultimately it is her decision and we can keep the patient here to be treated for her COPD exacerbation. She understands that her mom is confused and I believe it is probably due to CO2 retention from her COPD. Daughter reports that patient will refuse BiPAP due to being claustrophobic so we placed her on high flow nasal cannula. She will also be given IV Lasix due to some of the vascular congestion on chest xray. She was given her home dose of tramadol for her back pain and was also requesting something for anxiety. She had initially received Vistaril but I do not believe giving her any benzodiazepines is appropriate given her respiratory status. Patient will be admitted for management of COPD. CRITICAL CARE TIME Total Critical Care time was 35 minutes, excluding separately reportable procedures. There was a high probability of clinically significant/life threatening deterioration in the patient's condition which required my urgent intervention. CONSULTS: None PROCEDURES: Unless otherwise noted below, none Procedures Patients symptoms are consistent with sepsis, severe sepsis, or septic shock (If yes use .sepsiscoremeasure): FINAL IMPRESSION 1. COPD exacerbation (HCC) 2. Acute on chronic congestive heart failure, unspecified heart failure type (HCC) DISPOSITION Admit 08/03/2024 07:26:06 PM PATIENT REFERRED TO: No follow-up provider specified. DISCHARGE MEDICATIONS: New Prescriptions No medications on file (Comment: Please note this report has been produced using speech recognition software and may contain errors related to that system including errors in grammar, punctuation, and spelling, as well as words and phrases that may be inappropriate. If there are any questions or concerns please feel free to contact the dictating provider for clarification.) Stacia Juarez DO (electronically signed) Emergency Medicine Provider [1] No past medical history on file. [2] No past surgical history on file. [3] No family history on file. [4] Social History Socioeconomic History Marital status: Unknown Social Drivers of Health Food Insecurity: No Food Insecurity (10/22/2023) Received from [facility] Vital Sign Worried About Running Out of Food in the Last Year: Never true Ran Out of Food in the Last Year: Never true Transportation Needs: No Transportation Needs (10/22/2023) Received from [facility] PRAPARE - Transportation Lack of Transportation (Medical): No Lack of Transportation (Non-Medical): No Housing Stability: Low Risk (10/22/2023) Received from [facility] Housing Stability Vital Sign Unable to Pay for Housing in the Last Year: No Number of Places Lived in the Last Year: 1 Unstable Housing in the Last Year: No Stacia Juarez DO 08/03/242146 [facility] 04-19-2024 Note [facility] Medical Records Department [address] [place] [address] Discharge Summary 04/19/24 1556 MR#: [id number] Acct: [id number] Name: EMILY PERALTA Rep #: [id number] : 1940 83 From: Trip Hamilton DO PCP: Dr. Kaleb Mace Sr., DO Status:[id number] Prov[facility] Date of Admission: 04/17/24 Date of Discharge: 04/19/24 Primary Care Physician: Dr. Kaleb Mace Sr., DO Reason For Visit: COPD EXACERBATION W/ HYPOXIA Diagnosis Discharge Diagnosis (1) Acute respiratory failure with hypoxia: Status: Acute Code(s): J96.01 - Acute respiratory failure with hypoxia (2) COPD with acute exacerbation: Status: Chronic Code(s): J44.1 - Chronic obstructive pulmonary disease with (acute) exacerbation (3) Influenza A: Status: Acute Code(s): J10.1 - Influenza due to other identified influenza virus with other respiratory manifestations Plan 1. Strep pneumoniae pneumonia #2 urinary tract infection with E. coli #3 influenza A infection #4 acute exacerbation of COPD #5 chronic mild cognitive impairment #6 chronic debility #7 chronic congestive heart failure with preserved ejection fraction #8 chronic hypoxic respiratory failure Medications at Discharge Home Medications acetaminophen 325 mg capsule 650 mg PO TID Pain 04/17/24 amlodipine 5 mg tablet 5 mg PO DAILY B/P 04/17/24 baclofen 10 mg tablet 10 mg PO TID Spasms 04/17/24 beclomethasone dipropionate 40 mcg/actuation HFA breath activated aerosol 2 inh inhalation BID Respitory 04/17/24 esomeprazole magnesium 20 mg capsule,delayed release 20 mg PO DAILY Reflux 04/17/24 tramadol 50 mg tablet 50 mg PO BID pain 04/17/24 furosemide 40 mg tablet 40 mg PO BID Edema 04/18/24 hydroxyzine pamoate 50 mg capsule 50 mg PO 4X/DAY PRN PRN anxiety 04/18/24 amoxicillin 875 mg-potassium clavulanate 125 mg tablet 1 tab PO BID #9 tabs 04/19/24 oseltamivir 30 mg capsule 30 mg PO BID #5 caps 04/19/24 prednisone 20 mg tablet 40 mg (2 x 20 mg) PO DAILY #8 tabs 04/19/24 Hospital Course Operations None Procedures None Summary of Care Provided Minutes Spent on Discharge: 32 Hospital Course: This 83-year-old white female was seen in the emergency room at [facility] after being transferred from a fdc for worsening shortness of breath with cough. Patient required 10 L high flow oxygen in the emergency room to maintain her oxygen saturation greater than 90%. She had a mild increased work of breathing, chest x-ray showed patchy opacities over the mid to lower lungs bilaterally concerning for atelectasis versus developing pneumonia. There is also a 1.8 cm nodular opacity over the right midlung field. Patient refused to undergo CT scan of the chest. Patient's influenza A test was positive. Patient was admitted to PCU for acute COPD exacerbation with acute hypoxic respiratory failure, she was placed on aerosol treatments and IV corticosteroids and Tamiflu. Patient improved during the hospitalization, her sputum culture finally resulted positive for strep pneumoniae. Urine culture was positive for E. coli. On 04/19/2024, patient was seen and examined: On examination she appeared in good health and spirits, she does not appear to be in any distress. Vital signs as documented. Skin warm and dry and without overt rashes. Neck without JVD, thyroid appears normal, trachea is midline, neck is supple. Lungs clear, normal air movement was noted. Heart exam notable for regular rhythm, normal sounds and absence of murmurs, rubs or gallops. Abdomen unremarkable and without evidence of organomegaly, masses, or abdominal aortic enlargement, bowel sounds are present in all 4 quadrants, no abdominal tenderness was noted. Extremities nonedematous, no cyanosis was noted, no clubbing was noted. Neuro: Cranial nerves II through XII are grossly intact, no focal motor deficits were noted, sensation to light touch and pinprick is intact, motor exam 5/5 throughout. Psych: Patient is alert and oriented x3, she does not appear anxious or depressed, she does not appear agitated. Patient required 2 L of oxygen continuously at rest and 3 L of oxygen with ambulation at the time of discharge on 04/19/2024. On 04/19/2024, patient was seen and examined and felt to be in stable condition for transfer back to her extended care facility for further care Weight / BMI Weight Weight: 91 kg Body Mass Index (BMI) 37.9 ABG / Lab / Microbiology Data 04/18/24 04:20 04/18/24 04:20 Microbiology: Microbiology 04/17/24 22:00 Sputum, Expectorated/Coughed Gram Stain - Final 04/17/24 22:00 Sputum, Expectorated/Coughed Respiratory Culture - Final Streptococcus pneumoniae 04/17/24 14:32 Urine, Catheterized Urine Culture - Final Escherichia coli 04/17/24 10:25 Mucosa - Nasopharyngeal Respiratory Panel (PCR) - F (more content not included)... [facility] 11-11-2023 Note HNO ID: [id number] Author: KALLI DE ANDA APRN.MARINE DIESEL MECHANIC Service: ? Author Type: Nurse Practitioner Type: Progress Notes Filed: 11/11/2023 11:29 Note Text: Connected Care Unit Discharge Summary [facility] Connected Care Program [address], [address] ([address]) [place] [address] - CONNECTED CARE DISCHARGE SUMMARY Service Date: 11/11/2023 Admission Date: 10/24/2023 Discharge Date: 11/11/2023 Facility: [facility] Level of Care: Skilled SNF Attending: Dr. Ricardo Barrera [facility] Primary Care Physician: EMILY MCCARTY MD Principal Diagnosis: Acute pain of right shoulder (primary encounter diagnosis) Personal history of fall Non-traumatic rhabdomyolysis Hypertension, unspecified type Chronic obstructive pulmonary disease, unspecified copd type (hcc) Debility Subacute Course: Clear presented facility after being admitted to the hospital for a fall at home. CT scans were completed that were negative. She did have complaints of dysuria, and was treated for UTI. She continues to remain on room air, she does sleep upright in a recliner She will be discharged to [facility] assisted living. She is safe to transfer to new facility. Tests/Procedures: 11/03/2023 CMP-COMPREHENSIVE METABOLIC PNL GLUCOSE 56 mg/dL L Final GLUCOSE, FASTING 65-99 mg/dL GLUCOSE, NON-FASTING 65-125 mg/dL SODIUM 141 mEq/L 136-145 Final POTASSIUM 3.4 mEq/L 3.5-5.3 L Final CHLORIDE 99 mEq/L 98-110 Final CARBON DIOXIDE (CO2) 29 mEq/L 21-33 Final BUN (UREA NITROGEN) 8 mg/dL 7-25 Final CREATININE 0.7 mg/dL 0.6-1.2 Final BUN/CREATININE RATIO 11 6-22 Final GFR- 96 mL/min/1.73 m2 >60 Final [id number]-[id number] 80 mL/min/1.73 m2 >60 Final Stage of CKD eGFR (mL/min/1.73 square meters) Stage 1 >/= 90 or > 90 Stage 2 60 - 89 Stage 3 30 - 59 Stage 4 15 - 29 Stage 5 GFR is reliable for adults 17 to 69 years with stable kidney function. CALCIUM 9.7 mg/dL 8.4-10.2 Final PROTEIN, TOTAL 6.4 g/dL 6.0-8.3 Final ALBUMIN 3.6 g/dL 3.5-5.5 Final A/G RATIO 1.3 1.0-2.3 Final ALKALINE PHOS 90 IU/L 34-136 Final AST (SGOT) 13 IU/L 4-40 Final ALT (SGPT) 9 IU/L 4-55 Final BILIRUBIN, TOTAL 0.7 mg/dL 0.2-1.2 Final CBC W/DIFF WBC 7.3 K/cmm 4.5-10.8 Final RBC 4.38 M/cmm 3.90-5.40 Final HEMOGLOBIN 12.4 g/dL 12.0-16.0 Final HEMATOCRIT 37.9 % 36.0-48.0 Final MCV 86.5 fL 80.0-100.0 Final MCH 28.3 pg 26.0-35.0 Final MCHC 32.8 g/dL 31.0-36.5 Final RDW 18.5 % 11.0-16.0 H Final PLATELET 144 K/cmm 150-450 L Final MPV 8.2 fL 6.5-12.0 Final ANISOCYTOSIS 1+ NEGATIVE A Final NEUTROPHILS 63.9 % 40.0-80.0 Final LYMPHS 24.4 % 13.0-48.0 Final MONOCYTES 8.4 % 2.0-12.0 Final EOS 3.0 % 0.0-8.0 Final BASO 0.3 % 0.0-2.0 Final NEUTS (ABSOLUTE) 4.60 K/uL 1.50-7.60 Final LYMPHS (ABSOLUTE) 1.80 K/uL 0.90-5.50 Final MONOCYTES (ABSOLUTE) 0.60 K/uL 0.15-1.10 Final EOS (ABSOLUTE) 0.20 K/uL 0.20-0.80 Final TSH 3-UL 3.831 uIU/mL 0.340-5.500 Final T4, FREE 1.05 ng/dL 0.6-1.7 Final Transitions of Care Critical Issues: Imaging follow-up: None Lab Monitoring Needed: None Specialists Follow-Up: None Discharge Physical Exam: Physical Exam Vitals and nursing note reviewed. Constitutional: Appearance: Normal appearance. HENT: Head: Normocephalic. Right Ear: External ear normal. Left Ear: External ear normal. Nose: Nose normal. Mouth/Throat: Mouth: Mucous membranes are moist. Pharynx: Oropharynx is clear. Eyes: Pupils: Pupils are equal, round, and reactive to light. Cardiovascular: Rate and Rhythm: Normal rate and regular rhythm. Pulses: Normal pulses. Heart sounds: Normal heart sounds. Pulmonary: Effort: Pulmonary effort is normal. Breath sounds: Normal breath sounds. Abdominal: General: Bowel sounds are normal. There is no distension. Palpations: Abdomen is soft. Tenderness: There is no abdominal tenderness. Musculoskeletal: Cervical back: Normal range of motion and neck supple. Right lower leg: Edema present. Left lower leg: Edema present. Skin: General: Skin is warm and dry. Neurological: General: No focal deficit present. Mental Status: She is alert and oriented to person, place, and time. Motor: Weakness present. Gait: Gait abnormal. Psychiatric: Mood and Affect: Mood normal. Behavior: Behavior normal. Discharge Condition: Stable Discharge Disposition: Assisted Living Discharge Medications: potassium chloride ER (KLOR-CON) 20 mEq tablet Take 20 mEq by mouth two times a day. benzonatate (TESSALON PERLE) 100 mg capsule Take 1 capsule by mouth three times a day. baclofen 10 mg tablet Take 1 tablet by mouth three times a day as needed. esomeprazole magnesium (NEXI (more content not included)... [facility] 11-11-2023 History of Present illness Narrative Images from the original note were not included. Connected Care Unit Discharge Summary SNF Connected Care Program [facility] [address] [place] [address], [address] ([address]) [place] [address] CONNECTED CARE DISCHARGE SUMMARY Service Date: 11/11/2023 Admission Date: 10/24/2023 Discharge Date: 11/11/2023 Facility: [facility] Level of Care: Skilled SNF Attending: Dr. Ricardo Barrera [facility] Primary Care Physician: EMILY MCCARTY MD Principal Diagnosis: Acute pain of right shoulder (primary encounter diagnosis) Personal history of fall Non-traumatic rhabdomyolysis Hypertension, unspecified type Chronic obstructive pulmonary disease, unspecified copd type (hcc) Debility Subacute Course: Clear presented facility after being admitted to the hospital for a fall at home. CT scans were completed that were negative. She did have complaints of dysuria, and was treated for UTI. She continues to remain on room air, she does sleep upright in a recliner She [place] [facility] She is safe to transfer to new facility. Tests/Procedures: 11/03/2023 CMP-COMPREHENSIVE METABOLIC PNL GLUCOSE 56 mg/dL L Final GLUCOSE, FASTING 65-99 mg/dL GLUCOSE, NON-FASTING 65-125 mg/dL SODIUM 141 mEq/L 136-145 Final POTASSIUM 3.4 mEq/L 3.5-5.3 L Final CHLORIDE 99 mEq/L 98-110 Final CARBON DIOXIDE (CO2) 29 mEq/L 21-33 Final BUN (UREA NITROGEN) 8 mg/dL 7-25 Final CREATININE 0.7 mg/dL 0.6-1.2 Final BUN/CREATININE RATIO 11 6-22 Final GFR- 96 mL/min/1.73 m2 >60 Final AHF-[id number]-[id number] 80 mL/min/1.73 m2 >60 Final Stage of CKD eGFR (mL/min/1.73 square meters) Stage 1 >/= 90 or > 90 Stage 2 60 - 89 Stage 3 30 - 59 Stage 4 15 - 29 Stage 5 </= 14 or < 15 GFR is reliable for adults 17 to 69 years with stable kidney function. CALCIUM 9.7 mg/dL 8.4-10.2 Final PROTEIN, TOTAL 6.4 g/dL 6.0-8.3 Final ALBUMIN 3.6 g/dL 3.5-5.5 Final A/G RATIO 1.3 1.0-2.3 Final ALKALINE PHOS 90 IU/L 34-136 Final AST (SGOT) 13 IU/L 4-40 Final ALT (SGPT) 9 IU/L 4-55 Final BILIRUBIN, TOTAL 0.7 mg/dL 0.2-1.2 Final CBC W/DIFF WBC 7.3 K/cmm 4.5-10.8 Final RBC 4.38 M/cmm 3.90-5.40 Final HEMOGLOBIN 12.4 g/dL 12.0-16.0 Final HEMATOCRIT 37.9 % 36.0-48.0 Final MCV 86.5 fL 80.0-100.0 Final MCH 28.3 pg 26.0-35.0 Final MCHC 32.8 g/dL 31.0-36.5 Final RDW 18.5 % 11.0-16.0 H Final PLATELET 144 K/cmm 150-450 L Final MPV 8.2 fL 6.5-12.0 Final ANISOCYTOSIS 1+ NEGATIVE A Final NEUTROPHILS 63.9 % 40.0-80.0 Final LYMPHS 24.4 % 13.0-48.0 Final MONOCYTES 8.4 % 2.0-12.0 Final EOS 3.0 % 0.0-8.0 Final BASO 0.3 % 0.0-2.0 Final NEUTS (ABSOLUTE) 4.60 K/uL 1.50-7.60 Final LYMPHS (ABSOLUTE) 1.80 K/uL 0.90-5.50 Final MONOCYTES (ABSOLUTE) 0.60 K/uL 0.15-1.10 Final EOS (ABSOLUTE) 0.20 K/uL 0.20-0.80 Final TSH 3-UL 3.831 uIU/mL 0.340-5.500 Final T4, FREE 1.05 ng/dL 0.6-1.7 Final Transitions of Care Critical Issues: Imaging follow-up: None Lab Monitoring Needed: None Specialists Follow-Up: None Discharge Physical Exam: Physical Exam Vitals and nursing note reviewed. Constitutional: Appearance: Normal appearance. HENT: Head: Normocephalic. Right Ear: External ear normal. Left Ear: External ear normal. Nose: Nose normal. Mouth/Throat: Mouth: Mucous membranes are moist. Pharynx: Oropharynx is clear. Eyes: Pupils: Pupils are equal, round, and reactive to light. Cardiovascular: Rate and Rhythm: Normal rate and regular rhythm. Pulses: Normal pulses. Heart sounds: Normal heart sounds. Pulmonary: Effort: Pulmonary effort is normal. Breath sounds: Normal breath sounds. Abdominal: General: Bowel sounds are normal. There is no distension. Palpations: Abdomen is soft. Tenderness: There is no abdominal tenderness. Musculoskeletal: Cervical back: Normal range of motion and neck supple. Right lower leg: Edema present. Left lower leg: Edema present. Skin: General: Skin is warm and dry. Neurological: General: No focal deficit present. Mental Status: She is alert and oriented to person, place, and time. Motor: Weakness present. Gait: Gait abnormal. Psychiatric: Mood and Affect: Mood normal. Behavior: Behavior normal. Discharge Condition: Stable Discharge Disposition: Assisted Living Discharge Medications: potassium chloride ER (KLOR-CON) 20 mEq tablet Take 20 mEq by mouth two times a day. benzonatate (TESSALON PERLE) 100 mg capsule Take 1 capsule by mouth three times a day. baclofen 10 mg tablet Take 1 tablet by mouth three times a day as needed. esomeprazole magnesium (NEXIUM ORAL) Take 20 mg by mouth once daily. Ezgdv-1-IVE-EPA-Fish Oil (FISH OIL) 1,000 mg (120 mg-180 mg) cap Take 4 g by mouth two times a day. furosemide (LASIX) 20 mg tablet Take 20 mg by mouth daily at 6 pm. Pt states that she takes 40 in the morning and 20 in the late afternoon amLODIPine (NORVASC) 5 mg tablet Take 5 mg by mouth once daily. beclomethasone (QVAR REDIHALER) 40 mcg/actuation inhaler Inhale 2 Puffs as instructed two times a day. furosemide (LASIX) 40 mg tablet Take 40 mg by mouth once daily. Pt states that she takes 40 in the morning and 20 in the late afternoon hydrOXYzine pamoate (VISTARIL) 50 mg capsule Take 25 mg by mouth three times a day. labetalol (TRANDATE) 200 mg tablet Take 200 mg by mouth once daily. levothyroxine (SYNTHROID) 150 mcg tablet Take 137 mcg by mouth daily before breakfast. MYRBETRIQ 25 mg Tb24 Take 25 mg by mouth two times a day. prednisoLONE acetate (PRED FORTE) 1 % ophthalmic suspension albuterol HFA (PROVENTIL HFA, VENTOLIN HFA) 90 mcg/actuation inhaler Inhale 2 Puffs as instructed every 4 hours as needed for wheezing/shortness of breath. Functional Status: Modified independent + [facility] Scheduled Future Appointments: No future appointments. Prior to discharge, staff to schedule follow up appointment for patient to see PCP within 7-10 days of discharge. I spent 36 minutes in the visit, with more than 50% of the total pafr-qy-xeet time of the visit in counseling / coordination of care. Kalli De Anda APRN.[employer]INE [employer]EL MECHANIC documented in this encounter [facility] 11-05-2023 Note HNO ID: [id number] Author: KALLI DE ANDA APRN.CASSIE Service: ? Author Type: Nurse Practitioner Type: Progress Notes Filed: 11/05/2023 14:28 Note Text: Connected Care Unit Progress Note Patient Name: Emily Peralta Patient Facility: [facility] Admit Date 10/24/2023 Level of Care: Skilled SNF Attending: Dr. Ricardo Barrera Service Date: 11/06/2023 Code Status: DNR-CCA, DNI Chief Complaint: Evaluation regarding debility rehabilitation ASSESSMENT AND PLAN ASSESSMENT/PLAN: 1. Non-traumatic rhabdomyolysis - ICD9: 728.88, ICD10: M62.82 (primary diagnosis) 2. Acute pain of right shoulder - ICD9: 719.41, ICD10: M25.511 3. Personal history of fall - ICD9: V15.88, ICD10: Z91.81 Recent fall at home Hospital did CT of head and neck both negative Complaints of right shoulder pain since fall, x-ray will be right humerus and shoulder X-ray negative for fracture. Referred to Ortho for further evaluation. R3.0 dysuria UA CANDS completed culture is pending Cabcal's today pneumoniae with less than 100,000 microorganisms Clear remains symptomatic, she was ordered Macrobid 100 mg twice daily x 5 days ends 11/06/2023 4. Hypertension, unspecified type - ICD9: 401.9, ICD10: I10 Continue lasix, potassium, amlodipine 5. Chronic obstructive pulmonary disease, unspecified COPD type (HCC) - ICD9: 496, ICD10: J44.9 Continue albuterol calvin norris Continues to sleep upright in recliner Remains on room air 6. Debility - ICD9: 799.3, ICD10: R53.81 Certify therapies Maintain high falls risk precautions - pt/staff verbalize understanding validated via teach back Monitor safety awareness R82.90 Abnormal findings on urinalysis Known to have chronic, dysuria, and frequency Urine culture w/ mixed microbiota. Continue Simbabearaceli De Anda HPI: (Per hospital discharge) HOSPITAL COURSE: Pt is an 82 yo female with PMHx of HTN, COPD, GERD, OAB, hypothyroidism presenting after a fall at home (after recently being discharged from SNF) with rhabdomyolysis and an LUKAS. LUKAS and rhabdomyolysis resolved with IVF and avoidance of home diuretics. She will discontinue Hctz at discharge and resume her home lasix. A UA this admission was abnormal however subsequent urine culture showed only mixed microbiota. The patient has chronic urinary frequency and occasional dysuria which she felt was unchanged in nature, so a repeat urine culture was not collected. Patient is being discharged to [facility] in stable condition and agrees with plan. Understands importance of close follow up for re-evaluation and possible repeat vitals/labs/imaging. The problems as detailed below were addressed on admission. #Rhabdomyolysis (resolved) - 2/2 Fall and immobility. - CK 673-> 251-> 88 s/p IVF. #LUKAS (resolved)- Cr 1.52-> 1.16-> 0.70 with IVF, baseline ? ~0.8.. #Abnormal UA - UA with leukesterase, WBC, RBC, few bacteria. Pt notes chronic urinary symptoms including dysuria, urinary urgency, and urinary frequency. - Urine culture w/ mixed microbiota. #Chronic Thrombocytopenia - plt 97-> 102, baseline 90-110's. No evidence of bleeding on exam. #Fall #Functional Decline - CT brain and C spine are without acute abnormalities. - PT/OT, pt agreeable to placement. #Hypomagnesemia (resolved)- 1.4-> 1.7 s/p IV supplement. #Chronic HFpEF #HTN #HLD - Continue home amlodipine 5mg, labetalol 200mg daily. Stop home hctz- BP well-controlled, and likely not needed given she is already on lasix. Resume home lasix BID. - Continue home vascepa 2g BID. #COPD without acute exacerbation- Continue home meds. #OAB- Continue home trospium 20mg. #Acquired Hypothyroidism- Continue home synthroid 137mcg. [address] more up-to-date Herman is sitting up in her recliner, she is alert oriented x 3. She denies any shortness of breath, chest discomfort or pain. She denies any dysuria, hematuria, flank pain. She remains on Macrobid until 11/06/2023. She continues to work with therapy regain her strength and endurance. She has no concerns. Staff has no concerns. . No past medical history on file. SUBJECTIVE: Review of Systems Constitutional: Positive for activity change. HENT: Negative. Eyes: Negative. Respiratory: Negative for apnea, cough, choking, chest tightness, shortness of breath, wheezing and stridor. Cardiovascular: Positive for leg swelling. Negative for chest pain. Gastrointestinal: Negative for abdominal pain. Musculoskeletal: Positive for gait problem and myalgias. Skin: Negative. Neurological: Positive for weakness. Hematological: Negative. Psychiatric/Behavioral: Negative. No reports of falls/injuries, changes in cognition/behaviors, or any uncontrolled pain exacerbations. Medications: Medications listed in Epic during SNF admission may not be current. Refer to facility record. Patient records, current medications, most recent labs, family (more content not included)... [facility] 11-05-2023 History of Present illness Narrative Connected Care Unit Progress Note Patient Name: Emily Peralta Patient Facility: [facility] Admit Date 10/24/2023 Level of Care: Skilled SNF Attending: Dr. Ricardo Barrera Service Date: 11/06/2023 Code Status: DNR-CCA, DNI Chief Complaint: Evaluation regarding debility rehabilitation ASSESSMENT AND PLAN ASSESSMENT/PLAN: 1. Non-traumatic rhabdomyolysis - ICD9: 728.88, ICD10: M62.82 (primary diagnosis) 2. Acute pain of right shoulder - ICD9: 719.41, ICD10: M25.511 3. Personal history of fall - ICD9: V15.88, ICD10: Z91.81 Recent fall at home Hospital did CT of head and neck both negative Complaints of right shoulder pain since fall, x-ray will be right humerus and shoulder X-ray negative for fracture. Referred to Ortho for further evaluation. R3.0 dysuria UA C&S completed culture is pending Cabela's today pneumoniae with less than 100,000 microorganisms Clear remains symptomatic, she was ordered Macrobid 100 mg twice daily x 5 days ends 11/06/2023 4. Hypertension, unspecified type - ICD9: 401.9, ICD10: I10 Continue lasix, potassium, amlodipine 5. Chronic obstructive pulmonary disease, unspecified COPD type (HCC) - ICD9: 496, ICD10: J44.9 Continue albuterol tessalex norris Continues to sleep upright in recliner Remains on room air 6. Debility - ICD9: 799.3, ICD10: R53.81 Certify therapies Maintain high falls risk precautions - pt/staff verbalize understanding validated via teach back Monitor safety awareness R82.90 Abnormal findings on urinalysis Known to have chronic, dysuria, and frequency Urine culture w/ mixed microbiota. Continue Shanti De Anda HPI: (Per hospital discharge) HOSPITAL COURSE: Pt is an 82 yo female with PMHx of HTN, COPD, GERD, OAB, hypothyroidism presenting after a fall at home (after recently being discharged from SNF) with rhabdomyolysis and an LUKAS. LUKAS and rhabdomyolysis resolved with IVF and avoidance of home diuretics. She will discontinue Hctz at discharge and resume her home lasix. A UA this admission was abnormal however subsequent urine culture showed only mixed microbiota. The patient has chronic urinary frequency and occasional dysuria which she felt was unchanged in nature, so a repeat urine culture was not collected. Patient is being discharged to [facility] in stable condition and agrees with plan. Understands importance of close follow up for re-evaluation and possible repeat vitals/labs/imaging. The problems as detailed below were addressed on admission. #Rhabdomyolysis (resolved) - 2/2 Fall and immobility. - CK 673-> 251-> 88 s/p IVF. #LUKAS (resolved)- Cr 1.52-> 1.16-> 0.70 with IVF, baseline ? ~0.8.. #Abnormal UA - UA with leukesterase, WBC, RBC, few bacteria. Pt notes chronic urinary symptoms including dysuria, urinary urgency, and urinary frequency. - Urine culture w/ mixed microbiota. #Chronic Thrombocytopenia - plt 97-> 102, baseline 90-110's. No evidence of bleeding on exam. #Fall #Functional Decline - CT brain and C spine are without acute abnormalities. - PT/OT, pt agreeable to placement. #Hypomagnesemia (resolved)- 1.4-> 1.7 s/p IV supplement. #Chronic HFpEF #HTN #HLD - Continue home amlodipine 5mg, labetalol 200mg daily. Stop home hctz- BP well-controlled, and likely not needed given she is already on lasix. Resume home lasix BID. - Continue home vascepa 2g BID. #COPD without acute exacerbation- Continue home meds. #OAB- Continue home trospium 20mg. #Acquired Hypothyroidism- Continue home synthroid 137mcg. [address] more up-to-date Herman is sitting up in her recliner, she is alert oriented x 3. She denies any shortness of breath, chest discomfort or pain. She denies any dysuria, hematuria, flank pain. She remains on Macrobid until 11/06/2023. She continues to work with therapy regain her strength and endurance. She has no concerns. Staff has no concerns. . No past medical history on file. SUBJECTIVE: Review of Systems Constitutional: Positive for activity change. HENT: Negative. Eyes: Negative. Respiratory: Negative for apnea, cough, choking, chest tightness, shortness of breath, wheezing and stridor. Cardiovascular: Positive for leg swelling. Negative for chest pain. Gastrointestinal: Negative for abdominal pain. Musculoskeletal: Positive for gait problem and myalgias. Skin: Negative. Neurological: Positive for weakness. Hematological: Negative. Psychiatric/Behavioral: Negative. No reports of falls/injuries, changes in cognition/behaviors, or any uncontrolled pain exacerbations. Medications: Medications listed in Epic during SNF admission may not be current. Refer to facility record. Patient records, current medications, most recent labs, family/social history (unchanged) Reviewed. Refer to facility records. OBJECTIVE: Labs/diagnostics: 11/03/2023 MP-COMPREHENSIVE METABOLIC PNL GLUCOSE 56 mg/dL L Final GLUCOSE, FASTING 65-99 mg/dL GLUCOSE, NON-FASTING 65-125 mg/dL SODIUM 141 mEq/L 136-145 Final POTASSIUM 3.4 mEq/L 3.5-5.3 L Final CHLORIDE 99 mEq/L 98-110 Final CARBON DIOXIDE (CO2) 29 mEq/L 21-33 Final BUN (UREA NITROGEN) 8 mg/dL 7-25 Final CREATININE 0.7 mg/dL 0.6-1.2 Final BUN/CREATININE RATIO 11 6-22 Final GFR- 96 mL/min/1.73 m2 >60 Final [id number] 80 mL/min/1.73 m2 >60 Final Stage of CKD eGFR (mL/min/1.73 square meters) Stage 1 >/= 90 or > 90 Stage 2 60 - 89 Stage 3 30 - 59 Stage 4 15 - 29 Stage 5 </= 14 or < 15 GFR is reliable for adults 17 to 69 years with stable kidney function. CALCIUM 9.7 mg/dL 8.4-10.2 Final PROTEIN, TOTAL 6.4 g/dL 6.0-8.3 Final ALBUMIN 3.6 g/dL 3.5-5.5 Final A/G RATIO 1.3 1.0-2.3 Final ALKALINE PHOS 90 IU/L 34-136 Final AST (SGOT) 13 IU/L 4-40 Final ALT (SGPT) 9 IU/L 4-55 Final BILIRUBIN, TOTAL 0.7 mg/dL 0.2-1.2 Final CBC W/DIFF WBC 7.3 K/cmm 4.5-10.8 Final RBC 4.38 M/cmm 3.90-5.40 Final HEMOGLOBIN 12.4 g/dL 12.0-16.0 Final HEMATOCRIT 37.9 % 36.0-48.0 Final MCV 86.5 fL 80.0-100.0 Final MCH 28.3 pg 26.0-35.0 Final MCHC 32.8 g/dL 31.0-36.5 Final RDW 18.5 % 11.0-16.0 H Final PLATELET 144 K/cmm 150-450 L Final MPV 8.2 fL 6.5-12.0 Final ANISOCYTOSIS 1+ NEGATIVE A Final NEUTROPHILS 63.9 % 40.0-80.0 Final LYMPHS 24.4 % 13.0-48.0 Final MONOCYTES 8.4 % 2.0-12.0 Final EOS 3.0 % 0.0-8.0 Final BASO 0.3 % 0.0-2.0 Final NEUTS (ABSOLUTE) 4.60 K/uL 1.50-7.60 Final LYMPHS (ABSOLUTE) 1.80 K/uL 0.90-5.50 Final MONOCYTES (ABSOLUTE) 0.60 K/uL 0.15-1.10 Final EOS (ABSOLUTE) 0.20 K/uL 0.20-0.80 Final TSH 3-UL 3.831 uIU/mL 0.340-5.500 Final T4, FREE 1.05 ng/dL 0.6-1.7 Final Vital Signs: BP 114/67 Pulse 79 Temp 36.4 C (97.6 F) Resp 18 SpO2 95% Physical Exam: Physical Exam Vitals and nursing note reviewed. Constitutional: Appearance: Normal appearance. HENT: Head: Normocephalic. Right Ear: External ear normal. Left Ear: External ear normal. Nose: Nose normal. Mouth/Throat: Mouth: Mucous membranes are moist. Pharynx: Oropharynx is clear. Eyes: Pupils: Pupils are equal, round, and reactive to light. Cardiovascular: Rate and Rhythm: Normal rate and regular rhythm. Pulses: Normal pulses. Pulmonary: Effort: Pulmonary effort is normal. Breath sounds: Normal breath sounds. Abdominal: General: Bowel sounds are normal. There is no distension. Palpations: Abdomen is soft. Tenderness: There is no abdominal tenderness. Musculoskeletal: General: Swelling present. Cervical back: Normal range of motion and neck supple. Comments: Right shoulder and arm pain. Skin: General: Skin is warm and dry. Neurological: General: No focal deficit present. Mental Status: She is alert and oriented to person, place, and time. Motor: Weakness present. Gait: Gait abnormal. Psychiatric: Mood and Affect: Mood normal. Behavior: Behavior normal. POC discussed with appropriate parties and nursing staff. Previous progress note was copied forward, updated where appropriate, and reflective of current medical decision making today, 11/05/2023 This note was partially generated using [employer] voice recognition system, and there may be some incorrect words, spellings, and punctuation that were not noted in checking the note before saving. Electronically signed by Kalli De Anda APRN.CASSIE documented in this encounter [facility] 11-03-2023 Note HNO ID: [id number] Author: KALLI DE ANDA APRN.CASSIE Service: ? Author Type: Nurse Practitioner Type: Progress Notes Filed: 11/03/2023 16:21 Note Text: Connected Care Unit Progress Note Patient Name: Emily Peralta Patient Facility: [facility] Admit Date 10/24/2023 Level of Care: Skilled SNF Attending: Dr. Ricardo Barrera Service Date: 11/03/2023 Code Status: DNR-CCA, DNI Chief Complaint: Evaluation regarding debility rehabilitation ASSESSMENT AND PLAN ASSESSMENT/PLAN: 1. Non-traumatic rhabdomyolysis - ICD9: 728.88, ICD10: M62.82 (primary diagnosis) 2. Acute pain of right shoulder - ICD9: 719.41, ICD10: M25.511 3. Personal history of fall - ICD9: V15.88, ICD10: Z91.81 Recent fall at home Hospital did CT of head and neck both negative Complaints of right shoulder pain since fall, x-ray will be right humerus and shoulder X-ray negative for fracture. Referred to Ortho for further evaluation. R3.0 dysuria UA CANDS completed culture is pending Latosha's today pneumoniae with less than 100,000 microorganisms Clear remains symptomatic, she was ordered Macrobid 100 mg twice daily x 5 days 4. Hypertension, unspecified type - ICD9: 401.9, ICD10: I10 Continue lasix, potassium, amlodipine 5. Chronic obstructive pulmonary disease, unspecified COPD type (HCC) - ICD9: 496, ICD10: J44.9 Continue albuterol calvin norris Continues to sleep upright in recliner Remains on room air 6. Debility - ICD9: 799.3, ICD10: R53.81 Certify therapies Maintain high falls risk precautions - pt/staff verbalize understanding validated via teach back Monitor safety awareness R82.90 Abnormal findings on urinalysis Known to have chronic, dysuria, and frequency Urine culture w/ mixed microbiota. Continue Shanti De Anda HPI: (Per hospital discharge) HOSPITAL COURSE: Pt is an 82 yo female with PMHx of HTN, COPD, GERD, OAB, hypothyroidism presenting after a fall at home (after recently being discharged from SNF) with rhabdomyolysis and an LUKAS. LUKAS and rhabdomyolysis resolved with IVF and avoidance of home diuretics. She will discontinue Hctz at discharge and resume her home lasix. A UA this admission was abnormal however subsequent urine culture showed only mixed microbiota. The patient has chronic urinary frequency and occasional dysuria which she felt was unchanged in nature, so a repeat urine culture was not collected. Patient is being discharged to [facility] in stable condition and agrees with plan. Understands importance of close follow up for re-evaluation and possible repeat vitals/labs/imaging. The problems as detailed below were addressed on admission. #Rhabdomyolysis (resolved) - 2/2 Fall and immobility. - CK 673-> 251-> 88 s/p IVF. #LUKAS (resolved)- Cr 1.52-> 1.16-> 0.70 with IVF, baseline ? ~0.8.. #Abnormal UA - UA with leukesterase, WBC, RBC, few bacteria. Pt notes chronic urinary symptoms including dysuria, urinary urgency, and urinary frequency. - Urine culture w/ mixed microbiota. #Chronic Thrombocytopenia - plt 97-> 102, baseline 90-110's. No evidence of bleeding on exam. #Fall #Functional Decline - CT brain and C spine are without acute abnormalities. - PT/OT, pt agreeable to placement. #Hypomagnesemia (resolved)- 1.4-> 1.7 s/p IV supplement. #Chronic HFpEF #HTN #HLD - Continue home amlodipine 5mg, labetalol 200mg daily. Stop home hctz- BP well-controlled, and likely not needed given she is already on lasix. Resume home lasix BID. - Continue home vascepa 2g BID. #COPD without acute exacerbation- Continue home meds. #OAB- Continue home trospium 20mg. #Acquired Hypothyroidism- Continue home synthroid 137mcg. 11/03/2023 update Emily sitting up in her chair, she is alert and oriented x 3. She denies any shortness of breath, chest discomfort or pain. She continues to complain of dysuria, she was started on Macrobid over the weekend. She denies any flank pain or frequency. She continues to work with therapy regain her strength and endurance. She has no concerns. Staff has no concerns. Labs reviewed. . No past medical history on file. SUBJECTIVE: Review of Systems Constitutional: Positive for activity change. HENT: Negative. Eyes: Negative. Respiratory: Negative for apnea, cough, choking, chest tightness, shortness of breath, wheezing and stridor. Cardiovascular: Positive for leg swelling. Negative for chest pain. Gastrointestinal: Negative for abdominal pain. Musculoskeletal: Positive for gait problem and myalgias. Skin: Negative. Neurological: Positive for weakness. Hematological: Negative. Psychiatric/Behavioral: Negative. No reports of falls/injuries, changes in cognition/behaviors, or any uncontrolled pain exacerbations. Medications: Medications listed in Epic during SNF admission may not be current. Refer to facility record. Patient records, current medications, most (more content not included)... [place] [id number] History of Present illness Narrative Connected Care Unit Progress Note Patient Name: Emily Peralta Patient Facility: [facility] Admit Date 10/24/2023 Level of Care: Skilled SNF Attending: Dr. Ricardo Barrera Service Date: 11/03/2023 Code Status: DNR-CCA, DNI Chief Complaint: Evaluation regarding debility rehabilitation ASSESSMENT AND PLAN ASSESSMENT/PLAN: 1. Non-traumatic rhabdomyolysis - ICD9: 728.88, ICD10: M62.82 (primary diagnosis) 2. Acute pain of right shoulder - ICD9: 719.41, ICD10: M25.511 3. Personal history of fall - ICD9: V15.88, ICD10: Z91.81 Recent fall at home Hospital did CT of head and neck both negative Complaints of right shoulder pain since fall, x-ray will be right humerus and shoulder X-ray negative for fracture. Referred to Ortho for further evaluation. R3.0 dysuria UA C&S completed culture is pending Cabcal's today pneumoniae with less than 100,000 microorganisms Clear remains symptomatic, she was ordered Macrobid 100 mg twice daily x 5 days 4. Hypertension, unspecified type - ICD9: 401.9, ICD10: I10 Continue lasix, potassium, amlodipine 5. Chronic obstructive pulmonary disease, unspecified COPD type (HCC) - ICD9: 496, ICD10: J44.9 Continue albuterol prafulisabela norris Continues to sleep upright in recliner Remains on room air 6. Debility - ICD9: 799.3, ICD10: R53.81 Certify therapies Maintain high falls risk precautions - pt/staff verbalize understanding validated via teach back Monitor safety awareness R82.90 Abnormal findings on urinalysis Known to have chronic, dysuria, and frequency Urine culture w/ mixed microbiota. Continue Shanti De Anda HPI: (Per hospital discharge) HOSPITAL COURSE: Pt is an 82 yo female with PMHx of HTN, COPD, GERD, OAB, hypothyroidism presenting after a fall at home (after recently being discharged from SNF) with rhabdomyolysis and an LUKAS. LUKAS and rhabdomyolysis resolved with IVF and avoidance of home diuretics. She will discontinue Hctz at discharge and resume her home lasix. A UA this admission was abnormal however subsequent urine culture showed only mixed microbiota. The patient has chronic urinary frequency and occasional dysuria which she felt was unchanged in nature, so a repeat urine culture was not collected. Patient is being discharged to [facility] in stable condition and agrees with plan. Understands importance of close follow up for re-evaluation and possible repeat vitals/labs/imaging. The problems as detailed below were addressed on admission. #Rhabdomyolysis (resolved) - 2/2 Fall and immobility. - CK 673-> 251-> 88 s/p IVF. #LUKAS (resolved)- Cr 1.52-> 1.16-> 0.70 with IVF, baseline ? ~0.8.. #Abnormal UA - UA with leukesterase, WBC, RBC, few bacteria. Pt notes chronic urinary symptoms including dysuria, urinary urgency, and urinary frequency. - Urine culture w/ mixed microbiota. #Chronic Thrombocytopenia - plt 97-> 102, baseline 90-110's. No evidence of bleeding on exam. #Fall #Functional Decline - CT brain and C spine are without acute abnormalities. - PT/OT, pt agreeable to placement. #Hypomagnesemia (resolved)- 1.4-> 1.7 s/p IV supplement. #Chronic HFpEF #HTN #HLD - Continue home amlodipine 5mg, labetalol 200mg daily. Stop home hctz- BP well-controlled, and likely not needed given she is already on lasix. Resume home lasix BID. - Continue home vascepa 2g BID. #COPD without acute exacerbation- Continue home meds. #OAB- Continue home trospium 20mg. #Acquired Hypothyroidism- Continue home synthroid 137mcg. 11/03/2023 update Emily sitting up in her chair, she is alert and oriented x 3. She denies any shortness of breath, chest discomfort or pain. She continues to complain of dysuria, she was started on Macrobid over the weekend. She denies any flank pain or frequency. She continues to work with therapy regain her strength and endurance. She has no concerns. Staff has no concerns. Labs reviewed. . No past medical history on file. SUBJECTIVE: Review of Systems Constitutional: Positive for activity change. HENT: Negative. Eyes: Negative. Respiratory: Negative for apnea, cough, choking, chest tightness, shortness of breath, wheezing and stridor. Cardiovascular: Positive for leg swelling. Negative for chest pain. Gastrointestinal: Negative for abdominal pain. Musculoskeletal: Positive for gait problem and myalgias. Skin: Negative. Neurological: Positive for weakness. Hematological: Negative. Psychiatric/Behavioral: Negative. No reports of falls/injuries, changes in cognition/behaviors, or any uncontrolled pain exacerbations. Medications: Medications listed in Epic during SNF admission may not be current. Refer to facility record. Patient records, current medications, most recent labs, family/social history (unchanged) Reviewed. Refer to facility records. OBJECTIVE: Labs/diagnostics: 11/03/2023 MP-COMPREHENSIVE METABOLIC PNL GLUCOSE 56 mg/dL L Final GLUCOSE, FASTING 65-99 mg/dL GLUCOSE, NON-FASTING 65-125 mg/dL SODIUM 141 mEq/L 136-145 Final POTASSIUM 3.4 mEq/L 3.5-5.3 L Final CHLORIDE 99 mEq/L 98-110 Final CARBON DIOXIDE (CO2) 29 mEq/L 21-33 Final BUN (UREA NITROGEN) 8 mg/dL 7-25 Final CREATININE 0.7 mg/dL 0.6-1.2 Final BUN/CREATININE RATIO 11 6-22 Final GFR- 96 mL/min/1.73 m2 >60 Final GIV-TBZ-MBGPGAF 80 mL/min/1.73 m2 >60 Final Stage of CKD eGFR (mL/min/1.73 square meters) Stage 1 >/= 90 or > 90 Stage 2 60 - 89 Stage 3 30 - 59 Stage 4 15 - 29 Stage 5 </= 14 or < 15 GFR is reliable for adults 17 to 69 years with stable kidney function. CALCIUM 9.7 mg/dL 8.4-10.2 Final PROTEIN, TOTAL 6.4 g/dL 6.0-8.3 Final ALBUMIN 3.6 g/dL 3.5-5.5 Final A/G RATIO 1.3 1.0-2.3 Final ALKALINE PHOS 90 IU/L 34-136 Final AST (SGOT) 13 IU/L 4-40 Final ALT (SGPT) 9 IU/L 4-55 Final BILIRUBIN, TOTAL 0.7 mg/dL 0.2-1.2 Final CBC W/DIFF WBC 7.3 K/cmm 4.5-10.8 Final RBC 4.38 M/cmm 3.90-5.40 Final HEMOGLOBIN 12.4 g/dL 12.0-16.0 Final HEMATOCRIT 37.9 % 36.0-48.0 Final MCV 86.5 fL 80.0-100.0 Final MCH 28.3 pg 26.0-35.0 Final MCHC 32.8 g/dL 31.0-36.5 Final RDW 18.5 % 11.0-16.0 H Final PLATELET 144 K/cmm 150-450 L Final MPV 8.2 fL 6.5-12.0 Final ANISOCYTOSIS 1+ NEGATIVE A Final NEUTROPHILS 63.9 % 40.0-80.0 Final LYMPHS 24.4 % 13.0-48.0 Final MONOCYTES 8.4 % 2.0-12.0 Final EOS 3.0 % 0.0-8.0 Final BASO 0.3 % 0.0-2.0 Final NEUTS (ABSOLUTE) 4.60 K/uL 1.50-7.60 Final LYMPHS (ABSOLUTE) 1.80 K/uL 0.90-5.50 Final MONOCYTES (ABSOLUTE) 0.60 K/uL 0.15-1.10 Final EOS (ABSOLUTE) 0.20 K/uL 0.20-0.80 Final TSH 3-UL 3.831 uIU/mL 0.340-5.500 Final T4, FREE 1.05 ng/dL 0.6-1.7 Final Vital Signs: BP 110/60 Pulse 73 Temp (!) 35.7 C (96.2 F) Resp 18 Wt 89.4 kg (197 lb) SpO2 93% BMI 38.47 kg/m Physical Exam: Physical Exam Vitals and nursing note reviewed. Constitutional: Appearance: Normal appearance. HENT: Head: Normocephalic. Right Ear: External ear normal. Left Ear: External ear normal. Nose: Nose normal. Mouth/Throat: Mouth: Mucous membranes are moist. Pharynx: Oropharynx is clear. Eyes: Pupils: Pupils are equal, round, and reactive to light. Cardiovascular: Rate and Rhythm: Normal rate and regular rhythm. Pulses: Normal pulses. Pulmonary: Effort: Pulmonary effort is normal. Breath sounds: Normal breath sounds. Abdominal: General: Bowel sounds are normal. There is no distension. Palpations: Abdomen is soft. Tenderness: There is no abdominal tenderness. Musculoskeletal: General: Swelling present. Cervical back: Normal range of motion and neck supple. Comments: Right shoulder and arm pain. Skin: General: Skin is warm and dry. Neurological: General: No focal deficit present. Mental Status: She is alert and oriented to person, place, and time. Motor: Weakness present. Gait: Gait abnormal. Psychiatric: Mood and Affect: Mood normal. Behavior: Behavior normal. POC discussed with appropriate parties and nursing staff. Previous progress note was copied forward, updated where appropriate, and reflective of current medical decision making today, 11/03/2023 This note was partially generated using [employer] recognition system, and there may be some incorrect words, spellings, and punctuation that were not noted in checking the note before saving. Electronically signed by Kalli De Anda APRN.[employer] documented in this encounter [facility] 10-29-2023 Note HNO ID: [id number] Author: KALLI DE ANDA APRN.CASSIE Service: ? Author Type: Nurse Practitioner Type: Progress Notes Filed: 10/29/2023 15:41 Note Text: Connected Care Unit Progress Note Patient Name: Emily Peralta Patient Facility: [facility] Admit Date 10/24/2023 Level of Care: Skilled SNF Attending: Dr. Ricardo Barrera Service Date: 10/29/2023 Code Status: DNR-CCA, DNI Chief Complaint: Evaluation regarding debility rehabilitation ASSESSMENT AND PLAN ASSESSMENT/PLAN: 1. Non-traumatic rhabdomyolysis - ICD9: 728.88, ICD10: M62.82 (primary diagnosis) 2. Acute pain of right shoulder - ICD9: 719.41, ICD10: M25.511 3. Personal history of fall - ICD9: V15.88, ICD10: Z91.81 Recent fall at home Hospital did CT of head and neck both negative Complaints of right shoulder pain since fall, x-ray will be right humerus and shoulder X-ray negative for fracture. Referred to Ortho for further evaluation. R3.0 dysuria UA CANDS completed culture is pending 4. Hypertension, unspecified type - ICD9: 401.9, ICD10: I10 Continue lasix, potassium, amlodipine 5. Chronic obstructive pulmonary disease, unspecified COPD type (HCC) - ICD9: 496, ICD10: J44.9 Continue albuterol calvin norris Continues to sleep upright in recliner Remains on room air 6. Debility - ICD9: 799.3, ICD10: R53.81 Certify therapies Maintain high falls risk precautions - pt/staff verbalize understanding validated via teach back Monitor safety awareness R82.90 Abnormal findings on urinalysis Known to have chronic, dysuria, and frequency Urine culture w/ mixed microbiota. Continue Shanti De Anda HPI: (Per hospital discharge) HOSPITAL COURSE: Pt is an 82 yo female with PMHx of HTN, COPD, GERD, OAB, hypothyroidism presenting after a fall at home (after recently being discharged from SNF) with rhabdomyolysis and an LUKAS. LUKAS and rhabdomyolysis resolved with IVF and avoidance of home diuretics. She will discontinue Hctz at discharge and resume her home lasix. A UA this admission was abnormal however subsequent urine culture showed only mixed microbiota. The patient has chronic urinary frequency and occasional dysuria which she felt was unchanged in nature, so a repeat urine culture was not collected. Patient is being discharged to [facility] in stable condition and agrees with plan. Understands importance of close follow up for re-evaluation and possible repeat vitals/labs/imaging. The problems as detailed below were addressed on admission. #Rhabdomyolysis (resolved) - 2/2 Fall and immobility. - CK 673-> 251-> 88 s/p IVF. #LUKAS (resolved)- Cr 1.52-> 1.16-> 0.70 with IVF, baseline ? ~0.8.. #Abnormal UA - UA with leukesterase, WBC, RBC, few bacteria. Pt notes chronic urinary symptoms including dysuria, urinary urgency, and urinary frequency. - Urine culture w/ mixed microbiota. #Chronic Thrombocytopenia - plt 97-> 102, baseline 90-110's. No evidence of bleeding on exam. #Fall #Functional Decline - CT brain and C spine are without acute abnormalities. - PT/OT, pt agreeable to placement. #Hypomagnesemia (resolved)- 1.4-> 1.7 s/p IV supplement. #Chronic HFpEF #HTN #HLD - Continue home amlodipine 5mg, labetalol 200mg daily. Stop home hctz- BP well-controlled, and likely not needed given she is already on lasix. Resume home lasix BID. - Continue home vascepa 2g BID. #COPD without acute exacerbation- Continue home meds. #OAB- Continue home trospium 20mg. #Acquired Hypothyroidism- Continue home synthroid 137mcg. 10/29/2023 update Emily is sitting up in her chair, her daughter is at the bedside. She denies any shortness of breath, chest comfort or pain. She continues to have right shoulder pain she has been referred to orthopedics for further evaluation. She is having complaints of dysuria, she is already had a UA sent, culture is pending. She continues to work with therapy to regain strength and endurance. She has no concerns. Staff has no concerns. Labs reviewed Emily did request to have code status changed to DNR-CCA, DNI . Family and Emily were both given a copy of form. . No past medical history on file. SUBJECTIVE: Review of Systems Constitutional: Positive for activity change. HENT: Negative. Eyes: Negative. Respiratory: Negative for apnea, cough, choking, chest tightness, shortness of breath, wheezing and stridor. Cardiovascular: Positive for leg swelling. Negative for chest pain. Gastrointestinal: Negative for abdominal pain. Musculoskeletal: Positive for gait problem and myalgias. Skin: Negative. Neurological: Positive for weakness. Hematological: Negative. Psychiatric/Behavioral: Negative. No reports of falls/injuries, changes in cognition/behaviors, or any uncontrolled pain exacerbations. Medications: Medications listed in Epic during SNF admission may not be current. Refer to facility record. Angel (more content not included)... [facility] 10-29-2023 History of Present illness Narrative Connected Care Unit Progress Note Patient Name: Emily Peralta Patient Facility: [facility] Admit Date 10/24/2023 Level of Care: Skilled SNF Attending: Dr. Ricardo Barrera Service Date: 10/29/2023 Code Status: DNR-CCA, DNI Chief Complaint: Evaluation regarding debility rehabilitation ASSESSMENT AND PLAN ASSESSMENT/PLAN: 1. Non-traumatic rhabdomyolysis - ICD9: 728.88, ICD10: M62.82 (primary diagnosis) 2. Acute pain of right shoulder - ICD9: 719.41, ICD10: M25.511 3. Personal history of fall - ICD9: V15.88, ICD10: Z91.81 Recent fall at home Hospital did CT of head and neck both negative Complaints of right shoulder pain since fall, x-ray will be right humerus and shoulder X-ray negative for fracture. Referred to Ortho for further evaluation. R3.0 dysuria UA C&S completed culture is pending 4. Hypertension, unspecified type - ICD9: 401.9, ICD10: I10 Continue lasix, potassium, amlodipine 5. Chronic obstructive pulmonary disease, unspecified COPD type (HCC) - ICD9: 496, ICD10: J44.9 Continue albuterol calvin norris Continues to sleep upright in recliner Remains on room air 6. Debility - ICD9: 799.3, ICD10: R53.81 Certify therapies Maintain high falls risk precautions - pt/staff verbalize understanding validated via teach back Monitor safety awareness R82.90 Abnormal findings on urinalysis Known to have chronic, dysuria, and frequency Urine culture w/ mixed microbiota. Continue Shanti De Anda HPI: (Per hospital discharge) HOSPITAL COURSE: Pt is an 82 yo female with PMHx of HTN, COPD, GERD, OAB, hypothyroidism presenting after a fall at home (after recently being discharged from SNF) with rhabdomyolysis and an LUKAS. LUKAS and rhabdomyolysis resolved with IVF and avoidance of home diuretics. She will discontinue Hctz at discharge and resume her home lasix. A UA this admission was abnormal however subsequent urine culture showed only mixed microbiota. The patient has chronic urinary frequency and occasional dysuria which she felt was unchanged in nature, so a repeat urine culture was not collected. Patient is being discharged to [facility] in stable condition and agrees with plan. Understands importance of close follow up for re-evaluation and possible repeat vitals/labs/imaging. The problems as detailed below were addressed on admission. #Rhabdomyolysis (resolved) - 2/2 Fall and immobility. - CK 673-> 251-> 88 s/p IVF. #LUKAS (resolved)- Cr 1.52-> 1.16-> 0.70 with IVF, baseline ? ~0.8.. #Abnormal UA - UA with leukesterase, WBC, RBC, few bacteria. Pt notes chronic urinary symptoms including dysuria, urinary urgency, and urinary frequency. - Urine culture w/ mixed microbiota. #Chronic Thrombocytopenia - plt 97-> 102, baseline 90-110's. No evidence of bleeding on exam. #Fall #Functional Decline - CT brain and C spine are without acute abnormalities. - PT/OT, pt agreeable to placement. #Hypomagnesemia (resolved)- 1.4-> 1.7 s/p IV supplement. #Chronic HFpEF #HTN #HLD - Continue home amlodipine 5mg, labetalol 200mg daily. Stop home hctz- BP well-controlled, and likely not needed given she is already on lasix. Resume home lasix BID. - Continue home vascepa 2g BID. #COPD without acute exacerbation- Continue home meds. #OAB- Continue home trospium 20mg. #Acquired Hypothyroidism- Continue home synthroid 137mcg. 10/29/2023 update Emily is sitting up in her chair, her daughter is at the bedside. She denies any shortness of breath, chest comfort or pain. She continues to have right shoulder pain she has been referred to orthopedics for further evaluation. She is having complaints of dysuria, she is already had a UA sent, culture is pending. She continues to work with therapy to regain strength and endurance. She has no concerns. Staff has no concerns. Labs reviewed Emily did request to have code status changed to DNR-CCA, DNI . Family and Emily were both given a copy of form. . No past medical history on file. SUBJECTIVE: Review of Systems Constitutional: Positive for activity change. HENT: Negative. Eyes: Negative. Respiratory: Negative for apnea, cough, choking, chest tightness, shortness of breath, wheezing and stridor. Cardiovascular: Positive for leg swelling. Negative for chest pain. Gastrointestinal: Negative for abdominal pain. Musculoskeletal: Positive for gait problem and myalgias. Skin: Negative. Neurological: Positive for weakness. Hematological: Negative. Psychiatric/Behavioral: Negative. No reports of falls/injuries, changes in cognition/behaviors, or any uncontrolled pain exacerbations. Medications: Medications listed in Epic during SNF admission may not be current. Refer to facility record. Patient records, current medications, most recent labs, family/social history (unchanged) Reviewed. Refer to facility records. OBJECTIVE: Labs/diagnostics: 10/27/2023 CMP-COMPREHENSIVE METABOLIC PNL GLUCOSE 64 mg/dL L Final GLUCOSE, FASTING 65-99 mg/dL GLUCOSE, NON-FASTING 65-125 mg/dL SODIUM 140 mEq/L 136-145 Final POTASSIUM 3.6 mEq/L 3.5-5.3 Final CHLORIDE 97 mEq/L 98-110 L Final CARBON DIOXIDE (CO2) 27 mEq/L 21-33 Final BUN (UREA NITROGEN) 7 mg/dL 7-25 Final CREATININE 0.8 mg/dL 0.6-1.2 Final BUN/CREATININE RATIO 9 6-22 Final GFR- 83 mL/min/1.73 m2 >60 Final WGX-UTF-MLPSMDL 68 mL/min/1.73 m2 >60 Final Stage of CKD eGFR (mL/min/1.73 square meters) Stage 1 >/= 90 or > 90 Stage 2 60 - 89 Stage 3 30 - 59 Stage 4 15 - 29 Stage 5 </= 14 or < 15 GFR is reliable for adults 17 to 69 years with stable kidney function. CALCIUM 9.7 mg/dL 8.4-10.2 Final PROTEIN, TOTAL 6.1 g/dL 6.0-8.3 Final ALBUMIN 3.6 g/dL 3.5-5.5 Final A/G RATIO 1.4 1.0-2.3 Final ALKALINE PHOS 77 IU/L 34-136 Final AST (SGOT) 14 IU/L 4-40 Final ALT (SGPT) 12 IU/L 4-55 Final BILIRUBIN, TOTAL 0.8 mg/dL 0.2-1.2 Final CBC W/DIFF WBC 6.4 K/cmm 4.5-10.8 Final RBC 4.42 M/cmm 3.90-5.40 Final HEMOGLOBIN 12.4 g/dL 12.0-16.0 Final HEMATOCRIT 37.8 % 36.0-48.0 Final MCV 85.7 fL 80.0-100.0 Final MCH 28.0 pg 26.0-35.0 Final MCHC 32.6 g/dL 31.0-36.5 Final RDW 17.4 % 11.0-16.0 H Final PLATELET 117 K/cmm 150-450 L Final MPV 8.5 fL 6.5-12.0 Final ANISOCYTOSIS 1+ NEGATIVE A Final NEUTROPHILS 65.6 % 40.0-80.0 Final LYMPHS 20.9 % 13.0-48.0 Final MONOCYTES 10.0 % 2.0-12.0 Final EOS 3.2 % 0.0-8.0 Final BASO 0.3 % 0.0-2.0 Final NEUTS (ABSOLUTE) 4.20 K/uL 1.50-7.60 Final LYMPHS (ABSOLUTE) 1.30 K/uL 0.90-5.50 Final MONOCYTES (ABSOLUTE) 0.60 K/uL 0.15-1.10 Final EOS (ABSOLUTE) 0.20 K/uL 0.20-0.80 Final Vital Signs: BP 111/64 Pulse 75 Temp 36.3 C (97.4 F) Resp 20 SpO2 95% Physical Exam: Physical Exam Vitals and nursing note reviewed. Constitutional: Appearance: Normal appearance. HENT: Head: Normocephalic. Right Ear: External ear normal. Left Ear: External ear normal. Nose: Nose normal. Mouth/Throat: Mouth: Mucous membranes are moist. Pharynx: Oropharynx is clear. Eyes: Pupils: Pupils are equal, round, and reactive to light. Cardiovascular: Rate and Rhythm: Normal rate and regular rhythm. Pulses: Normal pulses. Pulmonary: Effort: Pulmonary effort is normal. Breath sounds: Normal breath sounds. Abdominal: General: Bowel sounds are normal. There is no distension. Palpations: Abdomen is soft. Tenderness: There is no abdominal tenderness. Musculoskeletal: General: Swelling present. Cervical back: Normal range of motion and neck supple. Comments: Right shoulder and arm pain. Skin: General: Skin is warm and dry. Neurological: General: No focal deficit present. Mental Status: She is alert and oriented to person, place, and time. Motor: Weakness present. Gait: Gait abnormal. Psychiatric: Mood and Affect: Mood normal. Behavior: Behavior normal. POC discussed with appropriate parties and nursing staff. Previous progress note was copied forward, updated where appropriate, and reflective of current medical decision making today, 10/29/2023 This note was partially generated using [employer] voice recognition system, and there may be some incorrect words, spellings, and punctuation that were not noted in checking the note before saving. Electronically signed by Kalli De Anda APRN.[employer] documented in this encounter [facility] 10-27-2023 Note HNO ID: [id number] Author: KALLI DE ANDA APRN.CASSIE Service: ? Author Type: Nurse Practitioner Type: Progress Notes Filed: 10/27/2023 12:37 Note Text: Connected Care Unit Progress Note Patient Name: Emily Peralta Patient Facility: [facility] Admit Date 10/24/2023 Level of Care: Skilled SNF Attending: Dr. Ricardo Barrera Service Date: 10/27/2023 Code Status: Full Code Chief Complaint: Evaluation regarding debility rehabilitation ASSESSMENT AND PLAN ASSESSMENT/PLAN: 1. Non-traumatic rhabdomyolysis - ICD9: 728.88, ICD10: M62.82 (primary diagnosis) 2. Acute pain of right shoulder - ICD9: 719.41, ICD10: M25.511 3. Personal history of fall - ICD9: V15.88, ICD10: Z91.81 Recent fall at home Hospital did CT of head and neck both negative Complaints of right shoulder pain since fall, x-ray will be right humerus and shoulder 4. Hypertension, unspecified type - ICD9: 401.9, ICD10: I10 Continue lasix, potassium, amlodipine 5. Chronic obstructive pulmonary disease, unspecified COPD type (HCC) - ICD9: 496, ICD10: J44.9 Continue albuterol susansloisabela jr Continues to sleep upright in recliner Remains on room air 6. Debility - ICD9: 799.3, ICD10: R53.81 Certify therapies Maintain high falls risk precautions - pt/staff verbalize understanding validated via teach back Monitor safety awareness R82.90 Abnormal findings on urinalysis Known to have chronic, dysuria, and frequency Urine culture w/ mixed microbiota. Continue Shanti De Anda HPI: (Per hospital discharge) HOSPITAL COURSE: Pt is an 82 yo female with PMHx of HTN, COPD, GERD, OAB, hypothyroidism presenting after a fall at home (after recently being discharged from SNF) with rhabdomyolysis and an LUKAS. LUKAS and rhabdomyolysis resolved with IVF and avoidance of home diuretics. She will discontinue Hctz at discharge and resume her home lasix. A UA this admission was abnormal however subsequent urine culture showed only mixed microbiota. The patient has chronic urinary frequency and occasional dysuria which she felt was unchanged in nature, so a repeat urine culture was not collected. Patient is being discharged to [facility] in stable condition and agrees with plan. Understands importance of close follow up for re-evaluation and possible repeat vitals/labs/imaging. The problems as detailed below were addressed on admission. #Rhabdomyolysis (resolved) - 2/2 Fall and immobility. - CK 673-> 251-> 88 s/p IVF. #LUKAS (resolved)- Cr 1.52-> 1.16-> 0.70 with IVF, baseline ? ~0.8.. #Abnormal UA - UA with leukesterase, WBC, RBC, few bacteria. Pt notes chronic urinary symptoms including dysuria, urinary urgency, and urinary frequency. - Urine culture w/ mixed microbiota. #Chronic Thrombocytopenia - plt 97-> 102, baseline 90-110's. No evidence of bleeding on exam. #Fall #Functional Decline - CT brain and C spine are without acute abnormalities. - PT/OT, pt agreeable to placement. #Hypomagnesemia (resolved)- 1.4-> 1.7 s/p IV supplement. #Chronic HFpEF #HTN #HLD - Continue home amlodipine 5mg, labetalol 200mg daily. Stop home hctz- BP well-controlled, and likely not needed given she is already on lasix. Resume home lasix BID. - Continue home vascepa 2g BID. #COPD without acute exacerbation- Continue home meds. #OAB- Continue home trospium 20mg. #Acquired Hypothyroidism- Continue home synthroid 137mcg. Nawaf is sitting up in her chair, she is alert and oriented x 3. She has been just recently discharged from another SNF on 10/16/2023. She reports that she fell at home she was unable to get herself up. While at the hospital they did a CT of head and neck. Today she has complaints of right shoulder and arm pain. Orders written for right shoulder and humerus x-ray. She previously was on tramadol 50 mg twice a day, will restart that. She does have labs pending for today. She has no concerns. Staff has no concerns. Chart, labs, medications reviewed. No past medical history on file. SUBJECTIVE: Review of Systems Constitutional: Positive for activity change. HENT: Negative. Eyes: Negative. Respiratory: Negative for apnea, cough, choking, chest tightness, shortness of breath, wheezing and stridor. Cardiovascular: Positive for leg swelling. Negative for chest pain. Gastrointestinal: Negative for abdominal pain. Musculoskeletal: Positive for gait problem and myalgias. Skin: Negative. Neurological: Positive for weakness. Hematological: Negative. Psychiatric/Behavioral: Negative. No reports of falls/injuries, changes in cognition/behaviors, or any uncontrolled pain exacerbations. Medications: Medications listed in Epic during SNF admission may not be current. Refer to facility record. Patient records, current medications, most recent labs, family/social history (unchanged) Reviewed. Refer to facility records. OBJECTIVE: Labs/diagnostics: (more content not included)... [facility] 10-27-2023 History of Present illness Narrative Images from the original note were not included. Connected Care Unit Progress Note Patient Name: Emily Peralta Patient Facility: [facility] Admit Date 10/24/2023 Level of Care: Skilled SNF Attending: Dr. Ricardo Barrera Service Date: 10/27/2023 Code Status: Full Code Chief Complaint: Evaluation regarding debility rehabilitation ASSESSMENT AND PLAN ASSESSMENT/PLAN: 1. Non-traumatic rhabdomyolysis - ICD9: 728.88, ICD10: M62.82 (primary diagnosis) 2. Acute pain of right shoulder - ICD9: 719.41, ICD10: M25.511 3. Personal history of fall - ICD9: V15.88, ICD10: Z91.81 Recent fall at home Hospital did CT of head and neck both negative Complaints of right shoulder pain since fall, x-ray will be right humerus and shoulder 4. Hypertension, unspecified type - ICD9: 401.9, ICD10: I10 Continue lasix, potassium, amlodipine 5. Chronic obstructive pulmonary disease, unspecified COPD type (HCC) - ICD9: 496, ICD10: J44.9 Continue albuterol calvin jr Continues to sleep upright in recliner Remains on room air 6. Debility - ICD9: 799.3, ICD10: R53.81 Certify therapies Maintain high falls risk precautions - pt/staff verbalize understanding validated via teach back Monitor safety awareness R82.90 Abnormal findings on urinalysis Known to have chronic, dysuria, and frequency Urine culture w/ mixed microbiota. Continue Shanti De Anda HPI: (Per hospital discharge) HOSPITAL COURSE: Pt is an 82 yo female with PMHx of HTN, COPD, GERD, OAB, hypothyroidism presenting after a fall at home (after recently being discharged from [facility]) with rhabdomyolysis and an LUKAS. LUKAS and rhabdomyolysis resolved with IVF and avoidance of home diuretics. She will discontinue Hctz at discharge and resume her home lasix. A UA this admission was abnormal however subsequent urine culture showed only mixed microbiota. The patient has chronic urinary frequency and occasional dysuria which she felt was unchanged in nature, so a repeat urine culture was not collected. Patient is being discharged to [facility] in stable condition and agrees with plan. Understands importance of close follow up for re-evaluation and possible repeat vitals/labs/imaging. The problems as detailed below were addressed on admission. #Rhabdomyolysis (resolved) - 2/2 Fall and immobility. - CK 673-> 251-> 88 s/p IVF. #LKUAS (resolved)- Cr 1.52-> 1.16-> 0.70 with IVF, baseline ? ~0.8.. #Abnormal UA - UA with leukesterase, WBC, RBC, few bacteria. Pt notes chronic urinary symptoms including dysuria, urinary urgency, and urinary frequency. - Urine culture w/ mixed microbiota. #Chronic Thrombocytopenia - plt 97-> 102, baseline 90-110's. No evidence of bleeding on exam. #Fall #Functional Decline - CT brain and C spine are without acute abnormalities. - PT/OT, pt agreeable to placement. #Hypomagnesemia (resolved)- 1.4-> 1.7 s/p IV supplement. #Chronic HFpEF #HTN #HLD - Continue home amlodipine 5mg, labetalol 200mg daily. Stop home hctz- BP well-controlled, and likely not needed given she is already on lasix. Resume home lasix BID. - Continue home vascepa 2g BID. #COPD without acute exacerbation- Continue home meds. #OAB- Continue home trospium 20mg. #Acquired Hypothyroidism- Continue home synthroid 137mcg. Nawaf is sitting up in her chair, she is alert and oriented x 3. She has been just recently discharged from another [facility] on 10/16/2023. She reports that she fell at home she was unable to get herself up. While at the hospital they did a CT of head and neck. Today she has complaints of right shoulder and arm pain. Orders written for right shoulder and humerus x-ray. She previously was on tramadol 50 mg twice a day, will restart that. She does have labs pending for today. She has no concerns. Staff has no concerns. Chart, labs, medications reviewed. No past medical history on file. SUBJECTIVE: Review of Systems Constitutional: Positive for activity change. HENT: Negative. Eyes: Negative. Respiratory: Negative for apnea, cough, choking, chest tightness, shortness of breath, wheezing and stridor. Cardiovascular: Positive for leg swelling. Negative for chest pain. Gastrointestinal: Negative for abdominal pain. Musculoskeletal: Positive for gait problem and myalgias. Skin: Negative. Neurological: Positive for weakness. Hematological: Negative. Psychiatric/Behavioral: Negative. No reports of falls/injuries, changes in cognition/behaviors, or any uncontrolled pain exacerbations. Medications: Medications listed in Epic during SNF admission may not be current. Refer to facility record. Patient records, current medications, most recent labs, family/social history (unchanged) Reviewed. Refer to facility records. OBJECTIVE: Labs/diagnostics: Latest Reference Range & Units 10/24/23 04:58 Sodium 136 - 145 mmol/L 136 Potassium 3.5 - 5.1 mmol/L 4.5 Chloride 98 - 107 mmol/L 106 CO2 21 - 32 mmol/L 25 BUN 7 - 26 mg/dL 8 Creatinine 0.51 - 0.95 mg/dL 0.70 Glucose 70 - 100 mg/dL 71 Protein, Total 6.0 - 8.5 g/dL 5.8 (L) Calcium 8.5 - 10.5 mg/dL 10.0 Albumin 3.2 - 5.0 g/dL 2.8 (L) Bilirubin, Total 0.2 - 1.0 mg/dL 0.6 Alkaline Phosphatase 45 - 117 U/L 77 ALT 13 - 61 U/L 15 AST 8 - 34 U/L 23 Anion Gap 5 - 16 mmol/L 5 eGFR >=60 mL/min/1.73m 85 WBC 3.70 - 11.00 k/uL 5.62 RBC 3.90 - 5.20 m/uL 4.19 Hemoglobin 11.5 - 15.5 g/dL 11.6 Hematocrit 36.0 - 46.0 % 35.6 (L) Platelet Count 150 - 400 k/uL 102 (L) MCV 80.0 - 100.0 fL 85.0 MCH 26.0 - 34.0 pg 27.7 MCHC 30.5 - 36.0 g/dL 32.6 MPV 9.0 - 12.7 fL 9.3 RDW-CV 11.5 - 15.0 % 16.3 (H) Absolute nRBC <0.01 k/uL <0.01 (L): Data is abnormally low (H): Data is abnormally high Vital Signs: BP 126/69 Pulse 79 Temp 36.3 C (97.3 F) Resp 16 Wt 87.1 kg (192 lb) SpO2 95% BMI 37.50 kg/m Physical Exam: Physical Exam Vitals and nursing note reviewed. Constitutional: Appearance: Normal appearance. HENT: Head: Normocephalic. Right Ear: External ear normal. Left Ear: External ear normal. Nose: Nose normal. Mouth/Throat: Mouth: Mucous membranes are moist. Pharynx: Oropharynx is clear. Eyes: Pupils: Pupils are equal, round, and reactive to light. Cardiovascular: Rate and Rhythm: Normal rate and regular rhythm. Pulses: Normal pulses. Pulmonary: Effort: Pulmonary effort is normal. Breath sounds: Normal breath sounds. Abdominal: General: Bowel sounds are normal. There is no distension. Palpations: Abdomen is soft. Tenderness: There is no abdominal tenderness. Musculoskeletal: General: Swelling present. Cervical back: Normal range of motion and neck supple. Comments: Right shoulder and arm pain. Skin: General: Skin is warm and dry. Neurological: General: No focal deficit present. Mental Status: She is alert and oriented to person, place, and time. Motor: Weakness present. Gait: Gait abnormal. Psychiatric: Mood and Affect: Mood normal. Behavior: Behavior normal. POC discussed with appropriate parties and nursing staff. I spent a total of 30 minutes on the date of the service which included preparing to see the patient, [id number] patient care, completing clinical documentation, obtaining and/or reviewing separately obtained history, performing a medically appropriate examination, counseling and educating the patient/family/caregiver, ordering medications, tests, or procedures, communicating with other HCPs (not separately reported), independently interpreting results (not separately reported), communicating results to the patient/family/caregiver, and care coordination (not separately reported). This note was partially generated using [employer] voice recognition system, and there may be some incorrect words, spellings, and punctuation that were not noted in checking the note before saving. Electronically signed by Kalli De Anda APRN.CASSIE documented in this encounter [facility] 10-24-2023 Note [facility] 10-23-2023 Note [facility] 10-23-[address] [facility] 10-22-2023 Note [facility] 10-16-2023 Note HNO ID: [id number] Author: KALLI DE ANDA APRN.CNP Service: ? Author Type: Nurse Practitioner Type: Progress Notes Filed: 10/17/2023 09:25 Note Text: Connected Care Unit Discharge Summary SNF Connected Care Program [address], [address] ([address]) [place] [address] - CONNECTED CARE DISCHARGE SUMMARY Service Date: 10/16/2023 Admission Date: 09/22/2023 Discharge Date: 10/16/2023 Facility: [facility] Level of Care: Skilled SNF Attending: Sandra Kelly M.D. Connected Care Primary Care Physician: EMILY MCCARTY MD Principal Diagnosis: Urinary tract infection with hematuria, site unspecified (primary encounter diagnosis) Haemophilus influenzae infection Hypertension, unspecified type Other specified hypothyroidism Acute hypoxic respiratory failure (hcc) Hypokalemia Debility Subacute Course: Clear came to facility after being admitted for mental status change, with a UTI. She worked with therapy regain her strength and endurance. While she has been here she had complaints of abdominal discomfort, she does report that she has seen gastroenterology before, and this is a chronic problem. She does live by herself, she will have home health care come in. She feels that she is ready to go home. With assistance of [facility], and friends she is safe to go home. Tests/Procedures: Latest Reference Range AND Units 09/21/23 05:09 Sodium 136 - 145 mmol/L 132 (L) Potassium 3.5 - 5.1 mmol/L 3.9 Chloride 98 - 107 mmol/L 96 (L) CO2 21 - 32 mmol/L 32 BUN 7 - 26 mg/dL 7 Creatinine 0.51 - 0.95 mg/dL 0.71 Glucose 70 - 100 mg/dL 83 Calcium 8.5 - 10.5 mg/dL 10.3 Magnesium 1.6 - 2.6 mg/dL 1.9 Anion Gap 5 - 16 mmol/L 4 (L) eGFR >=60 mL/min/1.73m? 84 (L): Data is abnormally low Transitions of Care Critical Issues: Imaging follow-up: None Lab Monitoring Needed: None Specialists Follow-Up: None Discharge Physical Exam: Physical Exam Vitals and nursing note reviewed. Constitutional: Appearance: Normal appearance. HENT: Head: Normocephalic. Nose: Nose normal. Mouth/Throat: Mouth: Mucous membranes are dry. Eyes: Pupils: Pupils are equal, round, and reactive to light. Cardiovascular: Rate and Rhythm: Normal rate and regular rhythm. Pulmonary: Effort: No respiratory distress. Breath sounds: No wheezing or rales. Chest: Chest wall: No tenderness. Abdominal: General: There is no distension. Tenderness: There is no abdominal tenderness. There is no guarding. Musculoskeletal: General: Swelling present. Right lower leg: Edema present. Left lower leg: Edema present. Skin: General: Skin is warm and dry. Neurological: Mental Status: She is alert and oriented to person, place, and time. Psychiatric: Mood and Affect: Mood normal. Behavior: Behavior normal. Discharge Condition: Stable Discharge Disposition: Home/Community Discharge Medications: benzonatate (TESSALON PERLE) 100 mg capsule Take 1 capsule by mouth three times a day. baclofen 10 mg tablet Take 1 tablet by mouth three times a day as needed. esomeprazole magnesium (NEXIUM ORAL) Take 1 capsule by mouth once daily. Dpuwi-8-JMN-EPA-Fish Oil (FISH OIL) 1,000 mg (120 mg-180 mg) cap Take 4 g by mouth two times a day. furosemide (LASIX) 20 mg tablet Take 20 mg by mouth daily at 6 pm. Pt states that she takes 40 in the morning and 20 in the late afternoon amLODIPine (NORVASC) 5 mg tablet Take 5 mg by mouth once daily. beclomethasone (QVAR REDIHALER) 40 mcg/actuation inhaler Inhale 2 Puffs as instructed two times a day. furosemide (LASIX) 40 mg tablet Take 40 mg by mouth once daily. Pt states that she takes 40 in the morning and 20 in the late afternoon hydroCHLOROthiazide 25 mg tablet Take 25 mg by mouth once daily. hydrOXYzine pamoate (VISTARIL) 50 mg capsule Take 50 mg by mouth four times a day as needed for anxiety. labetalol (TRANDATE) 200 mg tablet Take 200 mg by mouth once daily. levothyroxine (SYNTHROID) 150 mcg tablet Take 150 mcg by mouth once daily. MYRBETRIQ 25 mg Tb24 Take 25 mg by mouth two times a day. prednisoLONE acetate (PRED FORTE) 1 % ophthalmic suspension albuterol HFA (PROVENTIL HFA, VENTOLIN HFA) 90 mcg/actuation inhaler Inhale 2 Puffs as instructed every 4 hours as needed for wheezing/shortness of breath. Functional Status: Ambulatory [facility] Scheduled Future Appointments: No future appointments. Prior to discharge, staff to schedule follow up appointment for patient to see PCP within 7-10 days of discharge. I spent 35 minutes in the visit, with more than 50% of the total [id number] time of the visit in counseling / coordination of care. Kalli De Anda APRN.[facility] 10-16-2023 History of Present illness Narrative Connected Care Unit Discharge Summary SNF Connected Care Program [address], [address] ([address]) [place] [address] CONNECTED CARE DISCHARGE SUMMARY Service Date: 10/16/2023 Admission Date: 09/22/2023 Discharge Date: 10/16/2023 Facility: [facility] Level of Care: Skilled SNF Attending: Sandra Kelly M.D. Connected Care Primary Care Physician: EMILY MCCARTY MD Principal Diagnosis: Urinary tract infection with hematuria, site unspecified (primary encounter diagnosis) Haemophilus influenzae infection Hypertension, unspecified type Other specified hypothyroidism Acute hypoxic respiratory failure (hcc) Hypokalemia Debility Subacute Course: Shun came to facility after being admitted for mental status change, with a UTI. She worked with therapy regain her strength and endurance. While she has been here she had complaints of abdominal discomfort, she does report that she has seen gastroenterology before, and this is a chronic problem. She does live by herself, she will have home health care come in. She feels that she is ready to go home. With assistance of [facility], and friends she is safe to go home. Tests/Procedures: Latest Reference Range & Units 09/21/23 05:09 Sodium 136 - 145 mmol/L 132 (L) Potassium 3.5 - 5.1 mmol/L 3.9 Chloride 98 - 107 mmol/L 96 (L) CO2 21 - 32 mmol/L 32 BUN 7 - 26 mg/dL 7 Creatinine 0.51 - 0.95 mg/dL 0.71 Glucose 70 - 100 mg/dL 83 Calcium 8.5 - 10.5 mg/dL 10.3 Magnesium 1.6 - 2.6 mg/dL 1.9 Anion Gap 5 - 16 mmol/L 4 (L) eGFR >=60 mL/min/1.73m 84 (L): Data is abnormally low Transitions of Care Critical Issues: Imaging follow-up: None Lab Monitoring Needed: None Specialists Follow-Up: None Discharge Physical Exam: Physical Exam Vitals and nursing note reviewed. Constitutional: Appearance: Normal appearance. HENT: Head: Normocephalic. Nose: Nose normal. Mouth/Throat: Mouth: Mucous membranes are dry. Eyes: Pupils: Pupils are equal, round, and reactive to light. Cardiovascular: Rate and Rhythm: Normal rate and regular rhythm. Pulmonary: Effort: No respiratory distress. Breath sounds: No wheezing or rales. Chest: Chest wall: No tenderness. Abdominal: General: There is no distension. Tenderness: There is no abdominal tenderness. There is no guarding. Musculoskeletal: General: Swelling present. Right lower leg: Edema present. Left lower leg: Edema present. Skin: General: Skin is warm and dry. Neurological: Mental Status: She is alert and oriented to person, place, and time. Psychiatric: Mood and Affect: Mood normal. Behavior: Behavior normal. Discharge Condition: Stable Discharge Disposition: Home/Community Discharge Medications: benzonatate (TESSALON PERLE) 100 mg capsule Take 1 capsule by mouth three times a day. baclofen 10 mg tablet Take 1 tablet by mouth three times a day as needed. esomeprazole magnesium (NEXIUM ORAL) Take 1 capsule by mouth once daily. Qsttj-[id number]-[id number]-EPA-Fish Oil (FISH OIL) 1,000 mg (120 mg-180 mg) cap Take 4 g by mouth two times a day. furosemide (LASIX) 20 mg tablet Take 20 mg by mouth daily at 6 pm. Pt states that she takes 40 in the morning and 20 in the late afternoon amLODIPine (NORVASC) 5 mg tablet Take 5 mg by mouth once daily. beclomethasone (QVAR REDIHALER) 40 mcg/actuation inhaler Inhale 2 Puffs as instructed two times a day. furosemide (LASIX) 40 mg tablet Take 40 mg by mouth once daily. Pt states that she takes 40 in the morning and 20 in the late afternoon hydroCHLOROthiazide 25 mg tablet Take 25 mg by mouth once daily. hydrOXYzine pamoate (VISTARIL) 50 mg capsule Take 50 mg by mouth four times a day as needed for anxiety. labetalol (TRANDATE) 200 mg tablet Take 200 mg by mouth once daily. levothyroxine (SYNTHROID) 150 mcg tablet Take 150 mcg by mouth once daily. MYRBETRIQ 25 mg Tb24 Take 25 mg by mouth two times a day. prednisoLONE acetate (PRED FORTE) 1 % ophthalmic suspension albuterol HFA (PROVENTIL HFA, VENTOLIN HFA) 90 mcg/actuation inhaler Inhale 2 Puffs as instructed every 4 hours as needed for wheezing/shortness of breath. Functional Status: Ambulatory [facility] Scheduled Future Appointments: No future appointments. Prior to discharge, staff to schedule follow up appointment for patient to see PCP within 7-10 days of discharge. I spent 35 minutes in the visit, with more than 50% of the total gwar-ip-zihi time of the visit in counseling / coordination of care. Kalli De Anda APRN.CNP documented in this encounter [facility] 10-14-2023 Note HNO ID: [id number] Author: KALLI DE ANDA APRN.CNP Service: ? Author Type: Nurse Practitioner Type: Progress Notes Filed: 10/14/2023 17:24 Note Text: Connected Care Unit Progress Note Patient Name: Emily Peralta Patient Facility: [facility] Admit Date 09/22/2023 Level of Care: Skilled SNF Attending: Sandra Kelly M.D. Service Date: 10/14/2023 update Code Status: full code Chief Complaint: Evaluation regarding hospital discharge ASSESSMENT AND PLAN (N39.0, R31.9) Urinary tract infection with hematuria, site unspecified (primary encounter diagnosis) Collate administration N32.81 OAB overactive bladder UA positive given ceftriaxone Denies any urinary frequency, flank pain, or hematuria Continue Myrbetriq (I10) Hypertension, unspecified type Monitor vital signs Monitor labs (E03.8) Other specified hypothyroidism TSH low [id number] mcg ordered (A49.2) Haemophilus influenzae infection Levofloxacin 750 mg every day Continue Mucinex x 5 days Recheck CBC CMP on 10/02/2023 Chest negative (E87.6) hypokalemia 10/09/2023 potassium level was 2.9. She has been getting 40 mEq of potassium daily Recheck labs 10/14/2023. (R53.81) Debility Certify therapies Maintain high falls risk precautions - pt/staff verbalize understanding validated via teach back Monitor safety awareness HPI: (Per hospital discharge) HOSPITAL COURSE: 82-year-old lady with known history of hypothyroidism, hypertension presented to the hospital with altered mental status. Likely secondary to UTI. UA was positive. She was treated with IV ceftriaxone with improvement in mental status. She did have acute hypoxic respiratory failure and chest x-ray was done which showed atelectasis. Improved with incentive spirometry. Currently on room air. She did have intermittent drowsiness secondary to taking her Vistaril and baclofen. Baclofen was made 3 times daily as needed and no further drowsiness noted. Patient is going to SNF in stable condition. Discharge plan discussed with the patient. Patient understands and agrees with the discharge plan. Malnutrition Diagnosis supported by Registered Dietitian:Severe Protein-Calorie Malnutrition Based on: Unintentional Weight Loss, Insufficient Energy Intake Assessment: I have reviewed the result of the malnutrition assessment and plan and agree Plan: Diet, Supplements DISCHARGE DISPOSITION: [facility] update Sitting up in her chair, she is alert and oriented x 3. She reports that she wants to go home this week. She denies any shortness of breath, chest discomfort or pain. She continues to work with therapy, she feels that she is ready to go home. 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 She continues to take her Nexium. She has no concerns. Staff has no concerns. Labs from 10/09/2019 forced that show hyperkalemia, she does have potassium replacement. labs pending for today. lReview of Systems Constitutional: Positive for activity change and unexpected weight change. HENT: Negative. Eyes: Negative. Respiratory: Negative for chest tightness and shortness of breath. Cardiovascular: Negative for chest pain and leg swelling. Gastrointestinal: Negative for abdominal pain. Genitourinary: Negative for difficulty urinating, dysuria, flank pain and frequency. Musculoskeletal: Positive for gait problem and myalgias. Neurological: Positive for weakness. Hematological: Negative. Psychiatric/Behavioral: Negative. No reports of falls/injuries, changes in cognition/behaviors, or any uncontrolled pain exacerbations. Medications: Medications listed in Epic during SNF admission may not be current. Refer to facility record. Patient records, current medications, most recent labs, family/social history (unchanged) Reviewed. Refer to facility records. OBJECTIVE: Labs/diagnostics: 10/09/2023 DIRECT BILIRUBIN 0.16 mg/dL 0.03 - 0.18 mg/dL Final TOTAL BILIRUBIN 0.53 mg/dL 0.0 - 1.2 mg/dL Final GLUCOSE Chemistry 98.80 mg/dL 74 - 99 mg/dL Final TOTAL PROTEIN 7.18 g/dL 6.4 - 8.2 g/dL Final BICARBONATE 38.76 mmol/L 21 - 32 mmol/L H Final CREATININE Chemistry 0.93 mg/dL 0.6 - 1.3 mg/dL Final ALANINE AMINOTRANSFERASE 18.88 U/L 7-45 U/L Final ASPARTATE AMINOTRANSFERASE 21.71 U/L 9 - 39 U/L Final ALBUMIN 4.24 ppm 3.4 - 5.0 g/dL Final CALCIUM 11.58 ppm 8.6 - 10.3 mg/dL H Final Blood Urea Nitrogen 30.50 mg/dL 6 - 23 mg/dL H Final ALKALINE PHOSPHATASE 91.42 U/L 33 - 110 U/L Final Sodium 126.00 mmol/L 136 - 145 mmol/L L Final POTASSIUM 2.9 mmol/L 3.5 - 5.3 mmol/L L Final Chloride 73.99 mmol/L 98 - 107 mmol/L L Final JERILYN 119.49 ug/dL 25 - 130 ug/dL Final GGT 79.81 U/L 9-64 U/L H Final (GFR) Glomerular filtration rate 61.00 ppm 90 - 120 mL/min/1.73 m2 L Final Prealbumin 20.30 ppm 17 - 34 mg/dL Final Vit (more content not included)... [facility] 10-14-2023 History of Present illness Narrative Connected Care Unit Progress Note Patient Name: Emily Peralta Patient Facility: [facility] Admit Date 09/22/2023 Level of Care: Skilled SNF Attending: Sandra Kelly M.D. Service Date: 10/14/2023 update Code Status: full code Chief Complaint: Evaluation regarding hospital discharge ASSESSMENT AND PLAN (N39.0, R31.9) Urinary tract infection with hematuria, site unspecified (primary encounter diagnosis) Collate administration N32.81 OAB overactive bladder UA positive given ceftriaxone Denies any urinary frequency, flank pain, or hematuria Continue Myrbetriq (I10) Hypertension, unspecified type Monitor vital signs Monitor labs (E03.8) Other specified hypothyroidism TSH low [id number] mcg ordered (A49.2) Haemophilus influenzae infection Levofloxacin 750 mg every day Continue Mucinex x 5 days Recheck CBC CMP on 10/02/2023 Chest negative (E87.6) hypokalemia \10/09/2023 potassium level was 2.9. She has been getting 40 mEq of potassium daily Recheck labs 10/14/2023. (R53.81) Debility Certify therapies Maintain high falls risk precautions - pt/staff verbalize understanding validated via teach back Monitor safety awareness HPI: (Per hospital discharge) HOSPITAL COURSE: 82-year-old lady with known history of hypothyroidism, hypertension presented to the hospital with altered mental status. Likely secondary to UTI. UA was positive. She was treated with IV ceftriaxone with improvement in mental status. She did have acute hypoxic respiratory failure and chest x-ray was done which showed atelectasis. Improved with incentive spirometry. Currently on room air. She did have intermittent drowsiness secondary to taking her Vistaril and baclofen. Baclofen was made 3 times daily as needed and no further drowsiness noted. Patient is going to SNF in stable condition. Discharge plan discussed with the patient. Patient understands and agrees with the discharge plan. Malnutrition Diagnosis supported by Registered Dietitian:Severe Protein-Calorie Malnutrition Based on: Unintentional Weight Loss, Insufficient Energy Intake Assessment: I have reviewed the result of the malnutrition assessment and plan and agree Plan: Diet, Supplements DISCHARGE DISPOSITION: [facility] update \ Sitting up in her chair, she is alert and oriented x 3. She reports that she wants to go home this week. She denies any shortness of breath, chest discomfort or pain. She continues to work with therapy, she feels that she is ready to go home. 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 She continues to take her Nexium. She has no concerns. Staff has no concerns. Labs from 10/09/2019 forced that show hyperkalemia, she does have potassium replacement. labs pending for today. lReview of Systems Constitutional: Positive for activity change and unexpected weight change. HENT: Negative. Eyes: Negative. Respiratory: Negative for chest tightness and shortness of breath. Cardiovascular: Negative for chest pain and leg swelling. Gastrointestinal: Negative for abdominal pain. Genitourinary: Negative for difficulty urinating, dysuria, flank pain and frequency. Musculoskeletal: Positive for gait problem and myalgias. Neurological: Positive for weakness. Hematological: Negative. Psychiatric/Behavioral: Negative. No reports of falls/injuries, changes in cognition/behaviors, or any uncontrolled pain exacerbations. Medications: Medications listed in Epic during SNF admission may not be current. Refer to facility record. Patient records, current medications, most recent labs, family/social history (unchanged) Reviewed. Refer to facility records. OBJECTIVE: Labs/diagnostics: 10/09/2023 DIRECT BILIRUBIN 0.16 mg/dL 0.03 - 0.18 mg/dL Final TOTAL BILIRUBIN 0.53 mg/dL 0.0 - 1.2 mg/dL Final GLUCOSE Chemistry 98.80 mg/dL 74 - 99 mg/dL Final TOTAL PROTEIN 7.18 g/dL 6.4 - 8.2 g/dL Final BICARBONATE 38.76 mmol/L 21 - 32 mmol/L H Final CREATININE Chemistry 0.93 mg/dL 0.6 - 1.3 mg/dL Final ALANINE AMINOTRANSFERASE 18.88 U/L 7-45 U/L Final ASPARTATE AMINOTRANSFERASE 21.71 U/L 9 - 39 U/L Final ALBUMIN 4.24 ppm 3.4 - 5.0 g/dL Final CALCIUM 11.58 ppm 8.6 - 10.3 mg/dL H Final Blood Urea Nitrogen 30.50 mg/dL 6 - 23 mg/dL H Final ALKALINE PHOSPHATASE 91.42 U/L 33 - 110 U/L Final Sodium 126.00 mmol/L 136 - 145 mmol/L L Final POTASSIUM 2.9 mmol/L 3.5 - 5.3 mmol/L L Final Chloride 73.99 mmol/L 98 - 107 mmol/L L Final JERILYN 119.49 ug/dL 25 - 130 ug/dL Final GGT 79.81 U/L 9-64 U/L H Final (GFR) Glomerular filtration rate 61.00 ppm 90 - 120 mL/min/1.73 m2 L Final Prealbumin 20.30 ppm 17 - 34 mg/dL Final Vital Signs: BP 120/70 Pulse 72 Temp 36.4 C (97.6 F) Resp 18 Wt 88.9 kg (196 lb) SpO2 95% BMI 38.28 kg/m Physical Exam: Physical Exam Vitals reviewed. Constitutional: Appearance: Normal appearance. HENT: Head: Normocephalic. Right Ear: External ear normal. Left Ear: External ear normal. Nose: Nose normal. Mouth/Throat: Mouth: Mucous membranes are moist. Pharynx: Oropharynx is clear. Eyes: Pupils: Pupils are equal, round, and reactive to light. Cardiovascular: Rate and Rhythm: Normal rate and regular rhythm. Pulses: Normal pulses. Pulmonary: Effort: Pulmonary effort is normal. Breath sounds: Normal breath sounds. Abdominal: General: Bowel sounds are normal. There is no distension. Palpations: Abdomen is soft. Tenderness: There is no abdominal tenderness. Musculoskeletal: General: Swelling present. Cervical back: Normal range of motion and neck supple. Right lower leg: Edema present. Left lower leg: Edema present. Skin: General: Skin is warm and dry. Neurological: General: No focal deficit present. Mental Status: She is alert and oriented to person, place, and time. Motor: Weakness present. Gait: Gait abnormal. Psychiatric: Mood and Affect: Mood normal. Behavior: Behavior normal. POC discussed with appropriate parties and nursing staff. Previous progress note was copied forward, updated where appropriate, and reflective of current medical decision making today,10/14/2023 This note was partially generated using [employer] voice recognition system, and there may be some incorrect words, spellings, and punctuation that were not noted in checking the note before saving Electronically signed by Kalli De Anda APRN.[employer] documented in this encounter [facility] 10-09-2023 Note HNO ID: [id number] Author: KALLI DE ANDA APRN.CASSIE Service: ? Author Type: Nurse Practitioner Type: Progress Notes Filed: 10/09/2023 15:06 Note Text: Connected Care Unit Progress Note Patient Name: Emily Peralta Patient Facility: [facility] Admit Date 09/22/2023 Level of Care: Skilled SNF Attending: Sandra Kelly M.D. Service Date: 10/09/2023 update Code Status: full code Chief Complaint: Evaluation regarding hospital discharge ASSESSMENT AND PLAN (N39.0, R31.9) Urinary tract infection with hematuria, site unspecified (primary encounter diagnosis) Collate administration N32.81 OAB overactive bladder UA positive given ceftriaxone Denies any urinary frequency, flank pain, or hematuria Continue Myrbetriq (I10) Hypertension, unspecified type Monitor vital signs Monitor labs (E03.8) Other specified hypothyroidism TSH low [id number] mcg ordered (A49.2) Haemophilus influenzae infection Levofloxacin 750 mg every day Continue Mucinex x 5 days Recheck CBC CMP on 10/02/2023 Chest negative (R53.81) Debility Certify therapies Maintain high falls risk precautions - pt/staff verbalize understanding validated via teach back Monitor safety awareness HPI: (Per hospital discharge) HOSPITAL COURSE: 82-year-old lady with known history of hypothyroidism, hypertension presented to the hospital with altered mental status. Likely secondary to UTI. UA was positive. She was treated with IV ceftriaxone with improvement in mental status. She did have acute hypoxic respiratory failure and chest x-ray was done which showed atelectasis. Improved with incentive spirometry. Currently on room air. She did have intermittent drowsiness secondary to taking her Vistaril and baclofen. Baclofen was made 3 times daily as needed and no further drowsiness noted. Patient is going to SNF in stable condition. Discharge plan discussed with the patient. Patient understands and agrees with the discharge plan. Malnutrition Diagnosis supported by Registered Dietitian:Severe Protein-Calorie Malnutrition Based on: Unintentional Weight Loss, Insufficient Energy Intake Assessment: I have reviewed the result of the malnutrition assessment and plan and agree Plan: Diet, Supplements DISCHARGE DISPOSITION: [facility] 10/09/2023 chetna Diaz sitting up in her wheelchair, she is alert and oriented x 3. She denies any shortness of breath, chest discomfort or pain. She reports that she is still very weak, and she needs to gain more strength. She continues to work with therapy. She has labs pending for today. She has no concerns. Staff has no concerns. lReview of Systems Constitutional: Positive for activity change and unexpected weight change. HENT: Negative. Eyes: Negative. Respiratory: Negative for chest tightness and shortness of breath. Cardiovascular: Negative for chest pain and leg swelling. Gastrointestinal: Negative for abdominal pain. Genitourinary: Negative for difficulty urinating, dysuria, flank pain and frequency. Musculoskeletal: Positive for gait problem and myalgias. Neurological: Positive for weakness. Hematological: Negative. Psychiatric/Behavioral: Negative. No reports of falls/injuries, changes in cognition/behaviors, or any uncontrolled pain exacerbations. Medications: Medications listed in Epic during SNF admission may not be current. Refer to facility record. Patient records, current medications, most recent labs, family/social history (unchanged) Reviewed. Refer to facility records. OBJECTIVE: Labs/diagnostics: 10/03/2023 DIRECT BILIRUBIN 0.20 mg/dL 0.03 - 0.18 mg/dL H Final TOTAL BILIRUBIN 1.01 mg/dL 0.0 - 1.2 mg/dL Final GLUCOSE Chemistry 96.19 mg/dL 74 - 99 mg/dL Final TOTAL PROTEIN 6.52 g/dL 6.4 - 8.2 g/dL Final BICARBONATE 31.76 mmol/L 21 - 32 mmol/L Final CREATININE Chemistry 0.93 mg/dL 0.6 - 1.3 mg/dL Final ALANINE AMINOTRANSFERASE 10.47 U/L 7-45 U/L Final ASPARTATE AMINOTRANSFERASE 17.58 U/L 9 - 39 U/L Final ALBUMIN 3.89 ppm 3.4 - 5.0 g/dL Final CALCIUM 10.62 ppm 8.6 - 10.3 mg/dL H Final Blood Urea Nitrogen 17.86 mg/dL 6 - 23 mg/dL Final ALKALINE PHOSPHATASE 69.28 U/L 33 - 110 U/L Final Sodium 136.95 mmol/L 136 - 145 mmol/L Final POTASSIUM 4.1 mmol/L 3.5 - 5.3 mmol/L Final Chloride 93.73 mmol/L 98 - 107 mmol/L L Final JERILYN 105.55 ug/dL 25 - 130 ug/dL Final GGT 52.13 U/L 9-64 U/L Final (GFR) Glomerular filtration rate 81.00 ppm 90 - 120 mL/min/1.73 m2 L Final Prealbumin 15.20 ppm 17 - 34 mg/dL L Final WBC 9.01 Normal 7.64 Normal 3.53 - 9.52 103/uL Lymphocytes 16.76 Low 22.72 Normal 20.23 - 43.53 % Monocyte 11.32 Normal 10.70 Normal 5.23 - 13.22 % Neutrophils 70.56 High 63.47 Normal 40.62 - 70.51 % Eosinophil 0.91 Normal 2.57 Normal 0.84 - 70.67 % Basophil 0.45 Normal 0.53 High 0.11 - 0.53 % Lymphocytes # 1.51 Normal 1.74 Normal (more content not included)... [facility] 10-09-2023 History of Present illness Narrative Connected Care Unit Progress Note Patient Name: Emily Peralta Patient Facility: [facility] Admit Date 09/22/2023 Level of Care: Skilled SNF Attending: Sandra Kelly M.D. Service Date: 10/09/2023 update Code Status: full code Chief Complaint: Evaluation regarding hospital discharge ASSESSMENT AND PLAN (N39.0, R31.9) Urinary tract infection with hematuria, site unspecified (primary encounter diagnosis) Collate administration N32.81 OAB overactive bladder UA positive given ceftriaxone Denies any urinary frequency, flank pain, or hematuria Continue Myrbetriq (I10) Hypertension, unspecified type Monitor vital signs Monitor labs (E03.8) Other specified hypothyroidism TSH low [id number] mcg ordered (A49.2) Haemophilus influenzae infection Levofloxacin 750 mg every day Continue Mucinex x 5 days Recheck CBC CMP on 10/02/2023 Chest negative (R53.81) Debility Certify therapies Maintain high falls risk precautions - pt/staff verbalize understanding validated via teach back Monitor safety awareness HPI: (Per hospital discharge) HOSPITAL COURSE: 82-year-old lady with known history of hypothyroidism, hypertension presented to the hospital with altered mental status. Likely secondary to UTI. UA was positive. She was treated with IV ceftriaxone with improvement in mental status. She did have acute hypoxic respiratory failure and chest x-ray was done which showed atelectasis. Improved with incentive spirometry. Currently on room air. She did have intermittent drowsiness secondary to taking her Vistaril and baclofen. Baclofen was made 3 times daily as needed and no further drowsiness noted. Patient is going to SNF in stable condition. Discharge plan discussed with the patient. Patient understands and agrees with the discharge plan. Malnutrition Diagnosis supported by Registered Dietitian:Severe Protein-Calorie Malnutrition Based on: Unintentional Weight Loss, Insufficient Energy Intake Assessment: I have reviewed the result of the malnutrition assessment and plan and agree Plan: Diet, Supplements DISCHARGE DISPOSITION: [facility] 10/09/2023 update Emily sitting up in her wheelchair, she is alert and oriented x 3. She denies any shortness of breath, chest discomfort or pain. She reports that she is still very weak, and she needs to gain more strength. She continues to work with therapy. She has labs pending for today. She has no concerns. Staff has no concerns. lReview of Systems Constitutional: Positive for activity change and unexpected weight change. HENT: Negative. Eyes: Negative. Respiratory: Negative for chest tightness and shortness of breath. Cardiovascular: Negative for chest pain and leg swelling. Gastrointestinal: Negative for abdominal pain. Genitourinary: Negative for difficulty urinating, dysuria, flank pain and frequency. Musculoskeletal: Positive for gait problem and myalgias. Neurological: Positive for weakness. Hematological: Negative. Psychiatric/Behavioral: Negative. No reports of falls/injuries, changes in cognition/behaviors, or any uncontrolled pain exacerbations. Medications: Medications listed in Epic during SNF admission may not be current. Refer to facility record. Patient records, current medications, most recent labs, family/social history (unchanged) Reviewed. Refer to facility records. OBJECTIVE: Labs/diagnostics: 10/03/2023 DIRECT BILIRUBIN 0.20 mg/dL 0.03 - 0.18 mg/dL H Final TOTAL BILIRUBIN 1.01 mg/dL 0.0 - 1.2 mg/dL Final GLUCOSE Chemistry 96.19 mg/dL 74 - 99 mg/dL Final TOTAL PROTEIN 6.52 g/dL 6.4 - 8.2 g/dL Final BICARBONATE 31.76 mmol/L 21 - 32 mmol/L Final CREATININE Chemistry 0.93 mg/dL 0.6 - 1.3 mg/dL Final ALANINE AMINOTRANSFERASE 10.47 U/L 7-45 U/L Final ASPARTATE AMINOTRANSFERASE 17.58 U/L 9 - 39 U/L Final ALBUMIN 3.89 ppm 3.4 - 5.0 g/dL Final CALCIUM 10.62 ppm 8.6 - 10.3 mg/dL H Final Blood Urea Nitrogen 17.86 mg/dL 6 - 23 mg/dL Final ALKALINE PHOSPHATASE 69.28 U/L 33 - 110 U/L Final Sodium 136.95 mmol/L 136 - 145 mmol/L Final POTASSIUM 4.1 mmol/L 3.5 - 5.3 mmol/L Final Chloride 93.73 mmol/L 98 - 107 mmol/L L Final JERILYN 105.55 ug/dL 25 - 130 ug/dL Final GGT 52.13 U/L 9-64 U/L Final (GFR) Glomerular filtration rate 81.00 ppm 90 - 120 mL/min/1.73 m2 L Final Prealbumin 15.20 ppm 17 - 34 mg/dL L Final WBC 9.01 Normal 7.64 Normal 3.53 - 9.52 10^3/uL Lymphocytes 16.76 Low 22.72 Normal 20.23 - 43.53 % Monocyte 11.32 Normal 10.70 Normal 5.23 - 13.22 % Neutrophils 70.56 High 63.47 Normal 40.62 - 70.51 % Eosinophil 0.91 Normal 2.57 Normal 0.84 - 70.67 % Basophil 0.45 Normal 0.53 High 0.11 - 0.53 % Lymphocytes # 1.51 Normal 1.74 Normal 1.15 - 3.13 10^3/uL Monocyte # 1.02 Normal 0.82 Normal 0.25 - 1.06 x10^3/L Neutrophils # (ANC) 6.36 High 4.85 Normal 1.85 - 5.94 10^3/uL Eosinophil # 0.08 Normal 0.20 Normal 0.05 - 0.50 10^3/uL Basophil # 0.04 High 0.04 High 0 - 0.07 10^3/uL RBC 4.65 Normal 4.81 Normal 4.33 - 5.72 10^3/uL HGB 13.22 Normal 13.65 Normal 12.55 - 16.99 g/dL HCT 40.10 Normal 41.7 Normal 38.30 - 49.30 % MCV 86.20 Normal 86.7 Normal 78.30 - 95.50 fL MCH 28.40 Normal 28.4 Normal 25.90 - 33.20 pg MCHC 33.00 Normal 32.7 Low 33.00 - 35.30 g/dL RDW 16.20 High 16.2 High 12.90 - 15.50 % RDW-SD 45.70 Normal 44.2 Normal 39.00 - 48.30 fL PLT 127.90 Low Low 146.50 - 351.50 x10^3/L 98.7 MPV 9.43 Normal 9.35 Normal 7.42 - 10.65 fL Vital Signs: BP 105/68 Pulse 84 Temp 36.4 C (97.5 F) Resp 18 SpO2 93% Physical Exam: Physical Exam Vitals reviewed. Constitutional: Appearance: Normal appearance. HENT: Head: Normocephalic. Right Ear: External ear normal. Left Ear: External ear normal. Nose: Nose normal. Mouth/Throat: Mouth: Mucous membranes are moist. Pharynx: Oropharynx is clear. Eyes: Pupils: Pupils are equal, round, and reactive to light. Cardiovascular: Rate and Rhythm: Normal rate and regular rhythm. Pulses: Normal pulses. Pulmonary: Effort: Pulmonary effort is normal. Breath sounds: Normal breath sounds. Abdominal: General: Bowel sounds are normal. There is no distension. Palpations: Abdomen is soft. Tenderness: There is no abdominal tenderness. Musculoskeletal: General: Swelling present. Cervical back: Normal range of motion and neck supple. Right lower leg: Edema present. Left lower leg: Edema present. Skin: General: Skin is warm and dry. Neurological: General: No focal deficit present. Mental Status: She is alert and oriented to person, place, and time. Motor: Weakness present. Gait: Gait abnormal. Psychiatric: Mood and Affect: Mood normal. Behavior: Behavior normal. POC discussed with appropriate parties and nursing staff. Previous progress note was copied forward, updated where appropriate, and reflective of current medical decision making today,10/09/2023 This note was partially generated using [employer] voice recognition system, and there may be some incorrect words, spellings, and punctuation that were not noted in checking the note before saving Electronically signed by Kalli De Anda APRN.[employer] documented in this encounter [facility] 10-07-2023 Note HNO ID: [id number] Author: KALLI DE ANDA APRN.CASSIE Service: ? Author Type: Nurse Practitioner Type: Progress Notes Filed: 10/07/2023 18:46 Note Text: Connected Care Unit Progress Note Patient Name: Emily Peralta Patient Facility: [facility] Admit Date 09/22/2023 Level of Care: Skilled SNF Attending: Sandra Kelly M.D. Service Date: 10/07/2023 Code Status: full code Chief Complaint: Evaluation regarding hospital discharge ASSESSMENT AND PLAN (N39.0, R31.9) Urinary tract infection with hematuria, site unspecified (primary encounter diagnosis) Collate administration N32.81 OAB overactive bladder UA positive given ceftriaxone Denies any urinary frequency, flank pain, or hematuria Continue Myrbetriq (I10) Hypertension, unspecified type Monitor vital signs Monitor labs (E03.8) Other specified hypothyroidism TSH low [id number] mcg ordered (A49.2) Haemophilus influenzae infection Levofloxacin 750 mg every day Continue Mucinex x 5 days Recheck CBC CMP on 10/02/2023 Chest negative (R53.81) Debility Certify therapies Maintain high falls risk precautions - pt/staff verbalize understanding validated via teach back Monitor safety awareness HPI: (Per hospital discharge) HOSPITAL COURSE: 82-year-old lady with known history of hypothyroidism, hypertension presented to the hospital with altered mental status. Likely secondary to UTI. UA was positive. She was treated with IV ceftriaxone with improvement in mental status. She did have acute hypoxic respiratory failure and chest x-ray was done which showed atelectasis. Improved with incentive spirometry. Currently on room air. She did have intermittent drowsiness secondary to taking her Vistaril and baclofen. Baclofen was made 3 times daily as needed and no further drowsiness noted. Patient is going to SNF in stable condition. Discharge plan discussed with the patient. Patient understands and agrees with the discharge plan. Malnutrition Diagnosis supported by Registered Dietitian:Severe Protein-Calorie Malnutrition Based on: Unintentional Weight Loss, Insufficient Energy Intake Assessment: I have reviewed the result of the malnutrition assessment and plan and agree Plan: Diet, Supplements DISCHARGE DISPOSITION: [facility] 10/07/2023 chetna Diaz sitting up in her recliner, she is alert and oriented x 3. She denies any shortness of breath, chest discomfort or pain. She continues to work with therapy to regain her strength and endurance. She is looking forward to going home. She reports that she is feeling much better, denies any fever or chills, cough. She has no concerns. Staff has no concerns. She will have labs drawn on 10/09/2023 lReview of Systems Constitutional: Positive for activity change. HENT: Negative. Eyes: Negative. Respiratory: Negative for chest tightness and shortness of breath. Cardiovascular: Negative for chest pain and leg swelling. Gastrointestinal: Negative for abdominal pain. Genitourinary: Negative for difficulty urinating, dysuria, flank pain and frequency. Musculoskeletal: Positive for gait problem and myalgias. Neurological: Positive for weakness. Hematological: Negative. Psychiatric/Behavioral: Negative. No reports of falls/injuries, changes in cognition/behaviors, or any uncontrolled pain exacerbations. Medications: Medications listed in Epic during SNF admission may not be current. Refer to facility record. Patient records, current medications, most recent labs, family/social history (unchanged) Reviewed. Refer to facility records. OBJECTIVE: Labs/diagnostics: Latest Reference Range AND Units 09/21/23 05:09 Sodium 136 - 145 mmol/L 132 (L) Potassium 3.5 - 5.1 mmol/L 3.9 Chloride 98 - 107 mmol/L 96 (L) CO2 21 - 32 mmol/L 32 BUN 7 - 26 mg/dL 7 Creatinine 0.51 - 0.95 mg/dL 0.71 Glucose 70 - 100 mg/dL 83 Calcium 8.5 - 10.5 mg/dL 10.3 Magnesium 1.6 - 2.6 mg/dL 1.9 Anion Gap 5 - 16 mmol/L 4 (L) eGFR >=60 mL/min/1.73m? 84 (L): Data is abnormally low Vital Signs: BP 133/79 Pulse 90 Temp 36.6 ?C (97.8 ?F) Resp 18 SpO2 93% Physical Exam: Physical Exam Vitals reviewed. Constitutional: Appearance: Normal appearance. HENT: Head: Normocephalic. Right Ear: External ear normal. Left Ear: External ear normal. Nose: Nose normal. Mouth/Throat: Mouth: Mucous membranes are moist. Pharynx: Oropharynx is clear. Eyes: Pupils: Pupils are equal, round, and reactive to light. Cardiovascular: Rate and Rhythm: Normal rate and regular rhythm. Pulses: Normal pulses. Pulmonary: Effort: Pulmonary effort is normal. Breath sounds: Normal breath sounds. Abdominal: General: Bowel sounds are normal. There is no distension. Palpations: Abdomen is soft. Tenderness: There is no abdominal tenderness. Musculoskeletal: General: Swelling present. Cervical back: Normal range of mot (more content not included)... [facility] 10-07-2023 History of Present illness Narrative Images from the original note were not included. Connected Care Unit Progress Note Patient Name: Emily Peralta Patient Facility: [facility] Admit Date 09/22/2023 Level of Care: Skilled SNF Attending: Sandra Kelly M.D. Service Date: 10/07/2023 Code Status: full code Chief Complaint: Evaluation regarding hospital discharge ASSESSMENT AND PLAN (N39.0, R31.9) Urinary tract infection with hematuria, site unspecified (primary encounter diagnosis) Collate administration N32.81 OAB overactive bladder UA positive given ceftriaxone Denies any urinary frequency, flank pain, or hematuria Continue Myrbetriq (I10) Hypertension, unspecified type Monitor vital signs Monitor labs (E03.8) Other specified hypothyroidism TSH low Ejnjdkwrnjxky320 mcg ordered (A49.2) Haemophilus influenzae infection Levofloxacin 750 mg every day Continue Mucinex x 5 days Recheck CBC CMP on 10/02/2023 Chest negative (R53.81) Debility Certify therapies Maintain high falls risk precautions - pt/staff verbalize understanding validated via teach back Monitor safety awareness HPI: (Per hospital discharge) HOSPITAL COURSE: 82-year-old lady with known history of hypothyroidism, hypertension presented to the hospital with altered mental status. Likely secondary to UTI. UA was positive. She was treated with IV ceftriaxone with improvement in mental status. She did have acute hypoxic respiratory failure and chest x-ray was done which showed atelectasis. Improved with incentive spirometry. Currently on room air. She did have intermittent drowsiness secondary to taking her Vistaril and baclofen. Baclofen was made 3 times daily as needed and no further drowsiness noted. Patient is going to SNF in stable condition. Discharge plan discussed with the patient. Patient understands and agrees with the discharge plan. Malnutrition Diagnosis supported by Registered Dietitian:Severe Protein-Calorie Malnutrition Based on: Unintentional Weight Loss, Insufficient Energy Intake Assessment: I have reviewed the result of the malnutrition assessment and plan and agree Plan: Diet, Supplements DISCHARGE DISPOSITION: [facility] 10/07/2023 chetna Diaz sitting up in her recliner, she is alert and oriented x 3. She denies any shortness of breath, chest discomfort or pain. She continues to work with therapy to regain her strength and endurance. She is looking forward to going home. She reports that she is feeling much better, denies any fever or chills, cough. She has no concerns. Staff has no concerns. She will have labs drawn on 10/09/2023 lReview of Systems Constitutional: Positive for activity change. HENT: Negative. Eyes: Negative. Respiratory: Negative for chest tightness and shortness of breath. Cardiovascular: Negative for chest pain and leg swelling. Gastrointestinal: Negative for abdominal pain. Genitourinary: Negative for difficulty urinating, dysuria, flank pain and frequency. Musculoskeletal: Positive for gait problem and myalgias. Neurological: Positive for weakness. Hematological: Negative. Psychiatric/Behavioral: Negative. No reports of falls/injuries, changes in cognition/behaviors, or any uncontrolled pain exacerbations. Medications: Medications listed in [facility] during SNF admission may not be current. Refer to facility record. Patient records, current medications, most recent labs, family/social history (unchanged) Reviewed. Refer to facility records. OBJECTIVE: Labs/diagnostics: Latest Reference Range & Units 09/21/23 05:09 Sodium 136 - 145 mmol/L 132 (L) Potassium 3.5 - 5.1 mmol/L 3.9 Chloride 98 - 107 mmol/L 96 (L) CO2 21 - 32 mmol/L 32 BUN 7 - 26 mg/dL 7 Creatinine 0.51 - 0.95 mg/dL 0.71 Glucose 70 - 100 mg/dL 83 Calcium 8.5 - 10.5 mg/dL 10.3 Magnesium 1.6 - 2.6 mg/dL 1.9 Anion Gap 5 - 16 mmol/L 4 (L) eGFR >=60 mL/min/1.73m 84 (L): Data is abnormally low Vital Signs: BP 133/79 Pulse 90 Temp 36.6 C (97.8 F) Resp 18 SpO2 93% Physical Exam: Physical Exam Vitals reviewed. Constitutional: Appearance: Normal appearance. HENT: Head: Normocephalic. Right Ear: External ear normal. Left Ear: External ear normal. Nose: Nose normal. Mouth/Throat: Mouth: Mucous membranes are moist. Pharynx: Oropharynx is clear. Eyes: Pupils: Pupils are equal, round, and reactive to light. Cardiovascular: Rate and Rhythm: Normal rate and regular rhythm. Pulses: Normal pulses. Pulmonary: Effort: Pulmonary effort is normal. Breath sounds: Normal breath sounds. Abdominal: General: Bowel sounds are normal. There is no distension. Palpations: Abdomen is soft. Tenderness: There is no abdominal tenderness. Musculoskeletal: General: Swelling present. Cervical back: Normal range of motion and neck supple. Right lower leg: Edema present. Left lower leg: Edema present. Skin: General: Skin is warm and dry. Neurological: General: No focal deficit present. Mental Status: She is alert and oriented to person, place, and time. Motor: Weakness present. Gait: Gait abnormal. Psychiatric: Mood and Affect: Mood normal. Behavior: Behavior normal. POC discussed with appropriate parties and nursing staff. Previous progress note was copied forward, updated where appropriate, and reflective of current medical decision making today, 10/07/2023 This note was partially generated using [employer] voice recognition system, and there may be some incorrect words, spellings, and punctuation that were not noted in checking the note before saving Electronically signed by Kalli De Anda APRN.[employer] documented in this encounter [facility] 10-02-2023 Note HNO ID: [id number] Author: KALLI DE ANDA APRN.CASSIE Service: ? Author Type: Nurse Practitioner Type: Progress Notes Filed: 10/02/2023 17:31 Note Text: Connected Care Unit Progress Note Patient Name: Emily Peralta Patient Facility: [facility] Admit Date 09/22/2023 Level of Care: Skilled SNF Attending: Sandra Kelly M.D. Service Date: 10/02/2023 Code Status: full code Chief Complaint: Evaluation regarding hospital discharge ASSESSMENT AND PLAN (N39.0, R31.9) Urinary tract infection with hematuria, site unspecified (primary encounter diagnosis) Collate administration N32.81 OAB overactive bladder UA positive given ceftriaxone Denies any urinary frequency, flank pain, or hematuria Continue Myrbetriq (I10) Hypertension, unspecified type Monitor vital signs Monitor labs (E03.8) Other specified hypothyroidism TSH low [id number] mcg ordered (A49.2) Haemophilus influenzae infection Levofloxacin 750 mg every day Continue Mucinex x 5 days Recheck CBC CMP on 10/02/2023 Chest x-eary (R53.81) Debility Certify therapies Maintain high falls risk precautions - pt/staff verbalize understanding validated via teach back Monitor safety awareness HPI: (Per hospital discharge) HOSPITAL COURSE: 82-year-old lady with known history of hypothyroidism, hypertension presented to the hospital with altered mental status. Likely secondary to UTI. UA was positive. She was treated with IV ceftriaxone with improvement in mental status. She did have acute hypoxic respiratory failure and chest x-ray was done which showed atelectasis. Improved with incentive spirometry. Currently on room air. She did have intermittent drowsiness secondary to taking her Vistaril and baclofen. Baclofen was made 3 times daily as needed and no further drowsiness noted. Patient is going to SNF in stable condition. Discharge plan discussed with the patient. Patient understands and agrees with the discharge plan. Malnutrition Diagnosis supported by Registered Dietitian:Severe Protein-Calorie Malnutrition Based on: Unintentional Weight Loss, Insufficient Energy Intake Assessment: I have reviewed the result of the malnutrition assessment and plan and agree Plan: Diet, Supplements DISCHARGE DISPOSITION: [facility] 10/02/2023 Emily sitting up in her recliner, she is alert oriented x 3. She denies any shortness of breath, chest comfort or pain. Her chest x-ray was negative. She continues to work with therapy to regain her strength and endurance. She has no concerns. Staff has no concerns. Labs pending for today. lReview of Systems Constitutional: Positive for activity change. HENT: Negative. Eyes: Negative. Respiratory: Negative for chest tightness and shortness of breath. Cardiovascular: Negative for chest pain and leg swelling. Gastrointestinal: Negative for abdominal pain. Genitourinary: Negative for difficulty urinating, dysuria, flank pain and frequency. Musculoskeletal: Positive for gait problem and myalgias. Neurological: Positive for weakness. Hematological: Negative. Psychiatric/Behavioral: Negative. No reports of falls/injuries, changes in cognition/behaviors, or any uncontrolled pain exacerbations. Medications: Medications listed in Epic during SNF admission may not be current. Refer to facility record. Patient records, current medications, most recent labs, family/social history (unchanged) Reviewed. Refer to facility records. OBJECTIVE: Labs/diagnostics: Latest Reference Range AND Units 09/21/23 05:09 Sodium 136 - 145 mmol/L 132 (L) Potassium 3.5 - 5.1 mmol/L 3.9 Chloride 98 - 107 mmol/L 96 (L) CO2 21 - 32 mmol/L 32 BUN 7 - 26 mg/dL 7 Creatinine 0.51 - 0.95 mg/dL 0.71 Glucose 70 - 100 mg/dL 83 Calcium 8.5 - 10.5 mg/dL 10.3 Magnesium 1.6 - 2.6 mg/dL 1.9 Anion Gap 5 - 16 mmol/L 4 (L) eGFR >=60 mL/min/1.73m? 84 (L): Data is abnormally low Vital Signs: BP 118/97 Pulse 68 Temp 36.4 ?C (97.6 ?F) Resp 18 SpO2 94% Physical Exam: Physical Exam Vitals reviewed. Constitutional: Appearance: Normal appearance. HENT: Head: Normocephalic. Right Ear: External ear normal. Left Ear: External ear normal. Nose: Nose normal. Mouth/Throat: Mouth: Mucous membranes are moist. Pharynx: Oropharynx is clear. Eyes: Pupils: Pupils are equal, round, and reactive to light. Cardiovascular: Rate and Rhythm: Normal rate and regular rhythm. Pulses: Normal pulses. Pulmonary: Effort: Pulmonary effort is normal. Breath sounds: Normal breath sounds. Abdominal: General: Bowel sounds are normal. There is no distension. Palpations: Abdomen is soft. Tenderness: There is no abdominal tenderness. Musculoskeletal: General: Swelling present. Cervical back: Normal range of motion and neck supple. Right lower leg: Edema present. Left lower leg: Edema present. Skin: General: Skin is warm a (more content not included)... [facility] 10-02-2023 History of Present illness Narrative Images from the original note were not included. Connected Care Unit Progress Note Patient Name: Emily Peralta Patient Facility: [facility] Admit Date 09/22/2023 Level of Care: Skilled SNF Attending: Sandra Kelly M.D. Service Date: 10/02/2023 Code Status: full code Chief Complaint: Evaluation regarding hospital discharge ASSESSMENT AND PLAN (N39.0, R31.9) Urinary tract infection with hematuria, site unspecified (primary encounter diagnosis) Collate administration N32.81 OAB overactive bladder UA positive given ceftriaxone Denies any urinary frequency, flank pain, or hematuria Continue Myrbetriq (I10) Hypertension, unspecified type Monitor vital signs Monitor labs (E03.8) Other specified hypothyroidism TSH low [id number] mcg ordered (A49.2) Haemophilus influenzae infection Levofloxacin 750 mg every day Continue Mucinex x 5 days Recheck CBC CMP on 10/02/2023 Chest x-eary (R53.81) Debility Certify therapies Maintain high falls risk precautions - pt/staff verbalize understanding validated via teach back Monitor safety awareness HPI: (Per hospital discharge) HOSPITAL COURSE: 82-year-old lady with known history of hypothyroidism, hypertension presented to the hospital with altered mental status. Likely secondary to UTI. UA was positive. She was treated with IV ceftriaxone with improvement in mental status. She did have acute hypoxic respiratory failure and chest x-ray was done which showed atelectasis. Improved with incentive spirometry. Currently on room air. She did have intermittent drowsiness secondary to taking her Vistaril and baclofen. Baclofen was made 3 times daily as needed and no further drowsiness noted. Patient is going to SNF in stable condition. Discharge plan discussed with the patient. Patient understands and agrees with the discharge plan. Malnutrition Diagnosis supported by Registered Dietitian:Severe Protein-Calorie Malnutrition Based on: Unintentional Weight Loss, Insufficient Energy Intake Assessment: I have reviewed the result of the malnutrition assessment and plan and agree Plan: Diet, Supplements DISCHARGE DISPOSITION: [facility] 10/02/2023 Emily sitting up in her recliner, she is alert oriented x 3. She denies any shortness of breath, chest comfort or pain. Her chest x-ray was negative. She continues to work with therapy to regain her strength and endurance. She has no concerns. Staff has no concerns. Labs pending for today. lReview of Systems Constitutional: Positive for activity change. HENT: Negative. Eyes: Negative. Respiratory: Negative for chest tightness and shortness of breath. Cardiovascular: Negative for chest pain and leg swelling. Gastrointestinal: Negative for abdominal pain. Genitourinary: Negative for difficulty urinating, dysuria, flank pain and frequency. Musculoskeletal: Positive for gait problem and myalgias. Neurological: Positive for weakness. Hematological: Negative. Psychiatric/Behavioral: Negative. No reports of falls/injuries, changes in cognition/behaviors, or any uncontrolled pain exacerbations. Medications: Medications listed in Epic during SNF admission may not be current. Refer to facility record. Patient records, current medications, most recent labs, family/social history (unchanged) Reviewed. Refer to facility records. OBJECTIVE: Labs/diagnostics: Latest Reference Range & Units 09/21/23 05:09 Sodium 136 - 145 mmol/L 132 (L) Potassium 3.5 - 5.1 mmol/L 3.9 Chloride 98 - 107 mmol/L 96 (L) CO2 21 - 32 mmol/L 32 BUN 7 - 26 mg/dL 7 Creatinine 0.51 - 0.95 mg/dL 0.71 Glucose 70 - 100 mg/dL 83 Calcium 8.5 - 10.5 mg/dL 10.3 Magnesium 1.6 - 2.6 mg/dL 1.9 Anion Gap 5 - 16 mmol/L 4 (L) eGFR >=60 mL/min/1.73m 84 (L): Data is abnormally low Vital Signs: BP 118/97 Pulse 68 Temp 36.4 C (97.6 F) Resp 18 SpO2 94% Physical Exam: Physical Exam Vitals reviewed. Constitutional: Appearance: Normal appearance. HENT: Head: Normocephalic. Right Ear: External ear normal. Left Ear: External ear normal. Nose: Nose normal. Mouth/Throat: Mouth: Mucous membranes are moist. Pharynx: Oropharynx is clear. Eyes: Pupils: Pupils are equal, round, and reactive to light. Cardiovascular: Rate and Rhythm: Normal rate and regular rhythm. Pulses: Normal pulses. Pulmonary: Effort: Pulmonary effort is normal. Breath sounds: Normal breath sounds. Abdominal: General: Bowel sounds are normal. There is no distension. Palpations: Abdomen is soft. Tenderness: There is no abdominal tenderness. Musculoskeletal: General: Swelling present. Cervical back: Normal range of motion and neck supple. Right lower leg: Edema present. Left lower leg: Edema present. Skin: General: Skin is warm and dry. Neurological: General: No focal deficit present. Mental Status: She is alert and oriented to person, place, and time. Motor: Weakness present. Gait: Gait abnormal. Psychiatric: Mood and Affect: Mood normal. Behavior: Behavior normal. POC discussed with appropriate parties and nursing staff. Previous progress note was copied forward, updated where appropriate, and reflective of current medical decision making today, 10/02/2023 This note was partially generated using [employer] voice recognition system, and there may be some incorrect words, spellings, and punctuation that were not noted in checking the note before saving Electronically signed by Kalli De Anda APRN.[employer] documented in this encounter [facility] 09-30-2023 Note HNO ID: [id number] Author: KALLI DE ANDA APRN.CNP Service: ? Author Type: Nurse Practitioner Type: Progress Notes Filed: 09/30/2023 15:34 Note Text: Connected Care Unit Progress Note Patient Name: Emily Peralta Patient Facility: [facility] Admit Date 09/22/2023 Level of Care: Skilled SNF Attending: Sandra Kelly M.D. Service Date: 09/29/2023 Code Status: full code Chief Complaint: Evaluation regarding hospital discharge ASSESSMENT AND PLAN (N39.0, R31.9) Urinary tract infection with hematuria, site unspecified (primary encounter diagnosis) Collate administration N32.81 OAB overactive bladder UA positive given ceftriaxone Denies any urinary frequency, flank pain, or hematuria Continue Myrbetriq (I10) Hypertension, unspecified type Monitor vital signs Monitor labs (E03.8) Other specified hypothyroidism TSH low Eplrgyxrxraqm688 mcg ordered (A49.2) Haemophilus influenzae infection Levofloxacin 750 mg every day Continue Mucinex x 5 days Recheck CBC CMP on 10/02/2023 (R53.81) Debility Certify therapies Maintain high falls risk precautions - pt/staff verbalize understanding validated via teach back Monitor safety awareness HPI: (Per hospital discharge) HOSPITAL COURSE: 82-year-old lady with known history of hypothyroidism, hypertension presented to the hospital with altered mental status. Likely secondary to UTI. UA was positive. She was treated with IV ceftriaxone with improvement in mental status. She did have acute hypoxic respiratory failure and chest x-ray was done which showed atelectasis. Improved with incentive spirometry. Currently on room air. She did have intermittent drowsiness secondary to taking her Vistaril and baclofen. Baclofen was made 3 times daily as needed and no further drowsiness noted. Patient is going to SNF in stable condition. Discharge plan discussed with the patient. Patient understands and agrees with the discharge plan. Malnutrition Diagnosis supported by Registered Dietitian:Severe Protein-Calorie Malnutrition Based on: Unintentional Weight Loss, Insufficient Energy Intake Assessment: I have reviewed the result of the malnutrition assessment and plan and agree Plan: Diet, Supplements DISCHARGE DISPOSITION: [facility] 09/30/2023 update Emily is sitting up in her recliner, she is alert and oriented x 3. She denies any shortness of breath, chest discomfort or pain. She does have a productive cough. She is taking Mucinex, 600 mg twice daily x 5 days should be started on levofloxacin 750 mg 1 tab every 24 hours x 5 days. Her TSH was low, will decrease her Synthroid from 150 mcg to 1 3 7 mcg daily. She will have labs rechecked in 6 10/02/2023. She was positive for haemophilus influenza. She has no concerns. Staff has no concerns. 09/26/2023 update Emily sitting up in recliner she is alert and oriented x 3. She denies any shortness of breath, chest discomfort or pain. She continues to work with therapy regain her strength and endurance. She does feel that she will be more comfortable at home, she is hoping to go home next Friday at 09/30/2023. She has no concerns. Staff has no concerns. lReview of Systems Constitutional: Positive for activity change. HENT: Negative. Eyes: Negative. Respiratory: Negative for chest tightness and shortness of breath. Cardiovascular: Negative for chest pain and leg swelling. Gastrointestinal: Negative for abdominal pain. Genitourinary: Negative for difficulty urinating, dysuria, flank pain and frequency. Musculoskeletal: Positive for gait problem and myalgias. Neurological: Positive for weakness. Hematological: Negative. Psychiatric/Behavioral: Negative. No reports of falls/injuries, changes in cognition/behaviors, or any uncontrolled pain exacerbations. Medications: Medications listed in Epic during SNF admission may not be current. Refer to facility record. Patient records, current medications, most recent labs, family/social history (unchanged) Reviewed. Refer to facility records. OBJECTIVE: Labs/diagnostics: Latest Reference Range AND Units 09/21/23 05:09 Sodium 136 - 145 mmol/L 132 (L) Potassium 3.5 - 5.1 mmol/L 3.9 Chloride 98 - 107 mmol/L 96 (L) CO2 21 - 32 mmol/L 32 BUN 7 - 26 mg/dL 7 Creatinine 0.51 - 0.95 mg/dL 0.71 Glucose 70 - 100 mg/dL 83 Calcium 8.5 - 10.5 mg/dL 10.3 Magnesium 1.6 - 2.6 mg/dL 1.9 Anion Gap 5 - 16 mmol/L 4 (L) eGFR >=60 mL/min/1.73m? 84 (L): Data is abnormally low Vital Signs: BP 123/62 Pulse 64 Temp 36.4 ?C (97.5 ?F) Resp 18 SpO2 95% Physical Exam: Physical Exam Vitals reviewed. Constitutional: Appearance: Normal appearance. HENT: Head: Normocephalic. Right Ear: External ear normal. Left Ear: External ear normal. Nose: Nose normal. Mouth/Throat: Mouth: Mucous membranes are moist. Pharynx: Oropharynx is clear. Eyes: Pupils: Pupils are (more content not included)... [facility] 09-30-2023 History of Present illness Narrative Images from the original note were not included. Connected Care Unit Progress Note Patient Name: Emily Peralta Patient Facility: [facility] Admit Date 09/22/2023 Level of Care: Skilled SNF Attending: Sandra Kelly M.D. Service Date: 09/29/2023 Code Status: full code Chief Complaint: Evaluation regarding hospital discharge ASSESSMENT AND PLAN (N39.0, R31.9) Urinary tract infection with hematuria, site unspecified (primary encounter diagnosis) Collate administration N32.81 OAB overactive bladder UA positive given ceftriaxone Denies any urinary frequency, flank pain, or hematuria Continue Myrbetriq (I10) Hypertension, unspecified type Monitor vital signs Monitor labs (E03.8) Other specified hypothyroidism TSH low [id number] mcg ordered (A49.2) Haemophilus influenzae infection Levofloxacin 750 mg every day Continue Mucinex x 5 days Recheck CBC CMP on 10/02/2023 (R53.81) Debility Certify therapies Maintain high falls risk precautions - pt/staff verbalize understanding validated via teach back Monitor safety awareness HPI: (Per hospital discharge) HOSPITAL COURSE: 82-year-old lady with known history of hypothyroidism, hypertension presented to the hospital with altered mental status. Likely secondary to UTI. UA was positive. She was treated with IV ceftriaxone with improvement in mental status. She did have acute hypoxic respiratory failure and chest x-ray was done which showed atelectasis. Improved with incentive spirometry. Currently on room air. She did have intermittent drowsiness secondary to taking her Vistaril and baclofen. Baclofen was made 3 times daily as needed and no further drowsiness noted. Patient is going to SNF in stable condition. Discharge plan discussed with the patient. Patient understands and agrees with the discharge plan. Malnutrition Diagnosis supported by Registered Dietitian:Severe Protein-Calorie Malnutrition Based on: Unintentional Weight Loss, Insufficient Energy Intake Assessment: I have reviewed the result of the malnutrition assessment and plan and agree Plan: Diet, Supplements DISCHAR[facility] DISPOSITION: [facility] 09/30/2023 update Emily is sitting up in her recliner, she is alert and oriented x 3. She denies any shortness of breath, chest discomfort or pain. She does have a productive cough. She is taking Mucinex, 600 mg twice daily x 5 days should be started on levofloxacin 750 mg 1 tab every 24 hours x 5 days. Her TSH was low, will decrease her Synthroid from 150 mcg to 1 3 7 mcg daily. She will have labs rechecked in 6 10/02/2023. She was positive for haemophilus influenza. She has no concerns. Staff has no concerns. 09/26/2023 update Emily sitting up in recliner she is alert and oriented x 3. She denies any shortness of breath, chest discomfort or pain. She continues to work with therapy regain her strength and endurance. She does feel that she will be more comfortable at home, she is hoping to go home next Friday at 09/30/2023. She has no concerns. Staff has no concerns. lReview of Systems Constitutional: Positive for activity change. HENT: Negative. Eyes: Negative. Respiratory: Negative for chest tightness and shortness of breath. Cardiovascular: Negative for chest pain and leg swelling. Gastrointestinal: Negative for abdominal pain. Genitourinary: Negative for difficulty urinating, dysuria, flank pain and frequency. Musculoskeletal: Positive for gait problem and myalgias. Neurological: Positive for weakness. Hematological: Negative. Psychiatric/Behavioral: Negative. No reports of falls/injuries, changes in cognition/behaviors, or any uncontrolled pain exacerbations. Medications: Medications listed in Epic during SNF admission may not be current. Refer to facility record. Patient records, current medications, most recent labs, family/social history (unchanged) Reviewed. Refer to facility records. OBJECTIVE: Labs/diagnostics: Latest Reference Range & Units 09/21/23 05:09 Sodium 136 - 145 mmol/L 132 (L) Potassium 3.5 - 5.1 mmol/L 3.9 Chloride 98 - 107 mmol/L 96 (L) CO2 21 - 32 mmol/L 32 BUN 7 - 26 mg/dL 7 Creatinine 0.51 - 0.95 mg/dL 0.71 Glucose 70 - 100 mg/dL 83 Calcium 8.5 - 10.5 mg/dL 10.3 Magnesium 1.6 - 2.6 mg/dL 1.9 Anion Gap 5 - 16 mmol/L 4 (L) eGFR >=60 mL/min/1.73m 84 (L): Data is abnormally low Vital Signs: BP 123/62 Pulse 64 Temp 36.4 C (97.5 F) Resp 18 SpO2 95% Physical Exam: Physical Exam Vitals reviewed. Constitutional: Appearance: Normal appearance. HENT: Head: Normocephalic. Right Ear: External ear normal. Left Ear: External ear normal. Nose: Nose normal. Mouth/Throat: Mouth: Mucous membranes are moist. Pharynx: Oropharynx is clear. Eyes: Pupils: Pupils are equal, round, and reactive to light. Cardiovascular: Rate and Rhythm: Normal rate and regular rhythm. Pulses: Normal pulses. Pulmonary: Effort: Pulmonary effort is normal. Breath sounds: Normal breath sounds. Abdominal: General: Bowel sounds are normal. There is no distension. Palpations: Abdomen is soft. Tenderness: There is no abdominal tenderness. Musculoskeletal: General: Swelling present. Cervical back: Normal range of motion and neck supple. Right lower leg: Edema present. Left lower leg: Edema present. Skin: General: Skin is warm and dry. Neurological: General: No focal deficit present. Mental Status: She is alert and oriented to person, place, and time. Motor: Weakness present. Gait: Gait abnormal. Psychiatric: Mood and Affect: Mood normal. Behavior: Behavior normal. POC discussed with appropriate parties and nursing staff. Previous progress note was copied forward, updated where appropriate, and reflective of current medical decision making today, 09/30/2023 This note was partially generated using [employer] voice recognition system, and there may be some incorrect words, spellings, and punctuation that were not noted in checking the note before saving Electronically signed by Kalli De Anda APRN.[employer] documented in this encounter [facility] 09-26-2023 Note HNO ID: [id number] Author: KALLI DE ANDA APRN.CNP Service: ? Author Type: Nurse Practitioner Type: Progress Notes Filed: 09/26/2023 23:15 Note Text: Connected Care Unit Progress Note Patient Name: Emily Peralta Patient Facility: [facility] Admit Date 09/22/2023 Level of Care: Skilled SNF Attending: Sandra Kelly M.D. Service Date: 09/26/2023 left Code Status: full code Chief Complaint: Evaluation regarding hospital discharge ASSESSMENT AND PLAN (N39.0, R31.9) Urinary tract infection with hematuria, site unspecified (primary encounter diagnosis) Collate administration N32.81 OAB overactive bladder UA positive given ceftriaxone Denies any urinary frequency, flank pain, or hematuria Continue Myrbetriq (I10) Hypertension, unspecified type Monitor vital signs Monitor labs (E03.8) Other specified hypothyroidism TSH to be drawn on 09/23 Continue levothyroxine (R53.81) Debility Certify therapies Maintain high falls risk precautions - pt/staff verbalize understanding validated via teach back Monitor safety awareness HPI: (Per hospital discharge) HOSPITAL COURSE: 82-year-old lady with known history of hypothyroidism, hypertension presented to the hospital with altered mental status. Likely secondary to UTI. UA was positive. She was treated with IV ceftriaxone with improvement in mental status. She did have acute hypoxic respiratory failure and chest x-ray was done which showed atelectasis. Improved with incentive spirometry. Currently on room air. She did have intermittent drowsiness secondary to taking her Vistaril and baclofen. Baclofen was made 3 times daily as needed and no further drowsiness noted. Patient is going to SNF in stable condition. Discharge plan discussed with the patient. Patient understands and agrees with the discharge plan. Malnutrition Diagnosis supported by Registered Dietitian:Severe Protein-Calorie Malnutrition Based on: Unintentional Weight Loss, Insufficient Energy Intake Assessment: I have reviewed the result of the malnutrition assessment and plan and agree Plan: Diet, Supplements DISCHARGE DISPOSITION: [facility] 09/26/2023 update Emily sitting up in recliner she is alert and oriented x 3. She denies any shortness of breath, chest discomfort or pain. She continues to work with therapy regain her strength and endurance. She does feel that she will be more comfortable at home, she is hoping to go home next Friday at 09/30/2023. She has no concerns. Staff has no concerns. lReview of Systems Constitutional: Positive for activity change. HENT: Negative. Eyes: Negative. Respiratory: Negative for chest tightness and shortness of breath. Cardiovascular: Negative for chest pain and leg swelling. Gastrointestinal: Negative for abdominal pain. Genitourinary: Negative for difficulty urinating, dysuria, flank pain and frequency. Musculoskeletal: Positive for gait problem and myalgias. Neurological: Positive for weakness. Hematological: Negative. Psychiatric/Behavioral: Negative. No reports of falls/injuries, changes in cognition/behaviors, or any uncontrolled pain exacerbations. Medications: Medications listed in Epic during SNF admission may not be current. Refer to facility record. Patient records, current medications, most recent labs, family/social history (unchanged) Reviewed. Refer to facility records. OBJECTIVE: Labs/diagnostics: Latest Reference Range AND Units 09/21/23 05:09 Sodium 136 - 145 mmol/L 132 (L) Potassium 3.5 - 5.1 mmol/L 3.9 Chloride 98 - 107 mmol/L 96 (L) CO2 21 - 32 mmol/L 32 BUN 7 - 26 mg/dL 7 Creatinine 0.51 - 0.95 mg/dL 0.71 Glucose 70 - 100 mg/dL 83 Calcium 8.5 - 10.5 mg/dL 10.3 Magnesium 1.6 - 2.6 mg/dL 1.9 Anion Gap 5 - 16 mmol/L 4 (L) eGFR >=60 mL/min/1.73m? 84 (L): Data is abnormally low Vital Signs: BP 108/52 Pulse 72 Temp 36.6 ?C (97.8 ?F) Resp 18 SpO2 92% Physical Exam: Physical Exam Vitals reviewed. Constitutional: Appearance: Normal appearance. HENT: Head: Normocephalic. Right Ear: External ear normal. Left Ear: External ear normal. Nose: Nose normal. Mouth/Throat: Mouth: Mucous membranes are moist. Pharynx: Oropharynx is clear. Eyes: Pupils: Pupils are equal, round, and reactive to light. Cardiovascular: Rate and Rhythm: Normal rate and regular rhythm. Pulses: Normal pulses. Pulmonary: Effort: Pulmonary effort is normal. Breath sounds: Normal breath sounds. Abdominal: General: Bowel sounds are normal. There is no distension. Palpations: Abdomen is soft. Tenderness: There is no abdominal tenderness. Musculoskeletal: General: Swelling present. Cervical back: Normal range of motion and neck supple. Right lower leg: Edema present. Left lower leg: Edema present. Skin: General: Skin is warm and dry. Neurological: General: No focal deficit present. Mental S (more content not included)... [facility] 09-26-2023 History of Present illness Narrative Images from the original note were not included. Connected Care Unit Progress Note Patient Name: Emily Peralta Patient Facility: [facility] Admit Date 09/22/2023 Level of Care: Skilled SNF Attending: Sandra Kelly M.D. Service Date: 09/26/2023 left Code Status: full code Chief Complaint: Evaluation regarding hospital discharge ASSESSMENT AND PLAN (N39.0, R31.9) Urinary tract infection with hematuria, site unspecified (primary encounter diagnosis) Collate administration N32.81 OAB overactive bladder UA positive given ceftriaxone Denies any urinary frequency, flank pain, or hematuria Continue Myrbetriq (I10) Hypertension, unspecified type Monitor vital signs Monitor labs (E03.8) Other specified hypothyroidism TSH to be drawn on 09/23 Continue levothyroxine (R53.81) Debility Certify therapies Maintain high falls risk precautions - pt/staff verbalize understanding validated via teach back Monitor safety awareness HPI: (Per hospital discharge) HOSPITAL COURSE: 82-year-old lady with known history of hypothyroidism, hypertension presented to the hospital with altered mental status. Likely secondary to UTI. UA was positive. She was treated with IV ceftriaxone with improvement in mental status. She did have acute hypoxic respiratory failure and chest x-ray was done which showed atelectasis. Improved with incentive spirometry. Currently on room air. She did have intermittent drowsiness secondary to taking her Vistaril and baclofen. Baclofen was made 3 times daily as needed and no further drowsiness noted. Patient is going to SNF in stable condition. Discharge plan discussed with the patient. Patient understands and agrees with the discharge plan. Malnutrition Diagnosis supported by Registered Dietitian:Severe Protein-Calorie Malnutrition Based on: Unintentional Weight Loss, Insufficient Energy Intake Assessment: I have reviewed the result of the malnutrition assessment and plan and agree Plan: Diet, Supplements DISCHARGE DISPOSITION: [facility] 09/26/2023 chetna Diaz sitting up in recliner she is alert and oriented x 3. She denies any shortness of breath, chest discomfort or pain. She continues to work with therapy regain her strength and endurance. She does feel that she will be more comfortable at home, she is hoping to go home next Friday at 09/30/2023. She has no concerns. Staff has no concerns. lReview of Systems Constitutional: Positive for activity change. HENT: Negative. Eyes: Negative. Respiratory: Negative for chest tightness and shortness of breath. Cardiovascular: Negative for chest pain and leg swelling. Gastrointestinal: Negative for abdominal pain. Genitourinary: Negative for difficulty urinating, dysuria, flank pain and frequency. Musculoskeletal: Positive for gait problem and myalgias. Neurological: Positive for weakness. Hematological: Negative. Psychiatric/Behavioral: Negative. No reports of falls/injuries, changes in cognition/behaviors, or any uncontrolled pain exacerbations. Medications: Medications listed in Epic during SNF admission may not be current. Refer to facility record. Patient records, current medications, most recent labs, family/social history (unchanged) Reviewed. Refer to facility records. OBJECTIVE: Labs/diagnostics: Latest Reference Range & Units 09/21/23 05:09 Sodium 136 - 145 mmol/L 132 (L) Potassium 3.5 - 5.1 mmol/L 3.9 Chloride 98 - 107 mmol/L 96 (L) CO2 21 - 32 mmol/L 32 BUN 7 - 26 mg/dL 7 Creatinine 0.51 - 0.95 mg/dL 0.71 Glucose 70 - 100 mg/dL 83 Calcium 8.5 - 10.5 mg/dL 10.3 Magnesium 1.6 - 2.6 mg/dL 1.9 Anion Gap 5 - 16 mmol/L 4 (L) eGFR >=60 mL/min/1.73m 84 (L): Data is abnormally low Vital Signs: BP 108/52 Pulse 72 Temp 36.6 C (97.8 F) Resp 18 SpO2 92% Physical Exam: Physical Exam Vitals reviewed. Constitutional: Appearance: Normal appearance. HENT: Head: Normocephalic. Right Ear: External ear normal. Left Ear: External ear normal. Nose: Nose normal. Mouth/Throat: Mouth: Mucous membranes are moist. Pharynx: Oropharynx is clear. Eyes: Pupils: Pupils are equal, round, and reactive to light. Cardiovascular: Rate and Rhythm: Normal rate and regular rhythm. Pulses: Normal pulses. Pulmonary: Effort: Pulmonary effort is normal. Breath sounds: Normal breath sounds. Abdominal: General: Bowel sounds are normal. There is no distension. Palpations: Abdomen is soft. Tenderness: There is no abdominal tenderness. Musculoskeletal: General: Swelling present. Cervical back: Normal range of motion and neck supple. Right lower leg: Edema present. Left lower leg: Edema present. Skin: General: Skin is warm and dry. Neurological: General: No focal deficit present. Mental Status: She is alert and oriented to person, place, and time. Motor: Weakness present. Gait: Gait abnormal. Psychiatric: Mood and Affect: Mood normal. Behavior: Behavior normal. POC discussed with appropriate parties and nursing staff. Previous progress note was copied forward, updated where appropriate, and reflective of current medical decision making today, 09/26/2023 This note was partially generated using [employer] voice recognition system, and there may be some incorrect words, spellings, and punctuation that were not noted in checking the note before saving Electronically signed by Kalli De Anda APRN.[employer] documented in this encounter [facility] 09-23-2023 Note HNO ID: [id number] Author: KALLI DE ANDA APRN.CASSIE Service: ? Author Type: Nurse Practitioner Type: Progress Notes Filed: 09/23/2023 15:28 Note Text: Connected Care Unit Progress Note Patient Name: Emily Peralta Patient Facility: [facility] Admit Date 09/22/2023 Level of Care: Skilled SNF Attending: Sandra Kelly M.D. Service Date: 09/23/2023 Code Status: full code Chief Complaint: Evaluation regarding hospital discharge ASSESSMENT AND PLAN (N39.0, R31.9) Urinary tract infection with hematuria, site unspecified (primary encounter diagnosis) Collate administration N32.81 OAB overactive bladder UA positive given ceftriaxone Denies any urinary frequency, flank pain, or hematuria Continue Myrbetriq (I10) Hypertension, unspecified type Monitor vital signs Monitor labs (E03.8) Other specified hypothyroidism TSH to be drawn on 09/23 Continue levothyroxine (R53.81) Debility Certify therapies Maintain high falls risk precautions - pt/staff verbalize understanding validated via teach back Monitor safety awareness HPI: (Per hospital discharge) HOSPITAL COURSE: 82-year-old lady with known history of hypothyroidism, hypertension presented to the hospital with altered mental status. Likely secondary to UTI. UA was positive. She was treated with IV ceftriaxone with improvement in mental status. She did have acute hypoxic respiratory failure and chest x-ray was done which showed atelectasis. Improved with incentive spirometry. Currently on room air. She did have intermittent drowsiness secondary to taking her Vistaril and baclofen. Baclofen was made 3 times daily as needed and no further drowsiness noted. Patient is going to SNF in stable condition. Discharge plan discussed with the patient. Patient understands and agrees with the discharge plan. Malnutrition Diagnosis supported by Registered Dietitian:Severe Protein-Calorie Malnutrition Based on: Unintentional Weight Loss, Insufficient Energy Intake Assessment: I have reviewed the result of the malnutrition assessment and plan and agree Plan: Diet, Supplements DISCHARGE DISPOSITION: [facility] 09/23/2023 update Emily is sitting up in wheelchair she is alert and oriented x 3. She denies any shortness of breath, chest discomfort or pain. She does have complaints of generalized pain, she does take tramadol at home. Did speak with [facility] to get dosage. This was reordered. She denies any dysuria, flank pain, hematuria. She will have labs drawn on 09/24/2023. She has no concerns. Staff has no concerns. She is on Lasix twice a day, the hospital discontinued her potassium. She will be started on potassium 10 mEq, may change dosage once labs are returned. lReview of Systems Constitutional: Positive for activity change. HENT: Negative. Eyes: Negative. Respiratory: Negative for chest tightness and shortness of breath. Cardiovascular: Negative for chest pain and leg swelling. Gastrointestinal: Negative for abdominal pain. Genitourinary: Negative for difficulty urinating, dysuria, flank pain and frequency. Musculoskeletal: Positive for gait problem and myalgias. Neurological: Positive for weakness. Hematological: Negative. Psychiatric/Behavioral: Negative. No reports of falls/injuries, changes in cognition/behaviors, or any uncontrolled pain exacerbations. Medications: Medications listed in Epic during SNF admission may not be current. Refer to facility record. Patient records, current medications, most recent labs, family/social history (unchanged) Reviewed. Refer to facility records. OBJECTIVE: Labs/diagnostics: Latest Reference Range AND Units 09/21/23 05:09 Sodium 136 - 145 mmol/L 132 (L) Potassium 3.5 - 5.1 mmol/L 3.9 Chloride 98 - 107 mmol/L 96 (L) CO2 21 - 32 mmol/L 32 BUN 7 - 26 mg/dL 7 Creatinine 0.51 - 0.95 mg/dL 0.71 Glucose 70 - 100 mg/dL 83 Calcium 8.5 - 10.5 mg/dL 10.3 Magnesium 1.6 - 2.6 mg/dL 1.9 Anion Gap 5 - 16 mmol/L 4 (L) eGFR >=60 mL/min/1.73m? 84 (L): Data is abnormally low Vital Signs: BP 121/62 Pulse 86 Temp 36.5 ?C (97.7 ?F) Resp 18 SpO2 92% Physical Exam: Physical Exam Vitals reviewed. Constitutional: Appearance: Normal appearance. HENT: Head: Normocephalic. Right Ear: External ear normal. Left Ear: External ear normal. Nose: Nose normal. Mouth/Throat: Mouth: Mucous membranes are moist. Pharynx: Oropharynx is clear. Eyes: Pupils: Pupils are equal, round, and reactive to light. Cardiovascular: Rate and Rhythm: Normal rate and regular rhythm. Pulses: Normal pulses. Pulmonary: Effort: Pulmonary effort is normal. Breath sounds: Normal breath sounds. Abdominal: General: Bowel sounds are normal. There is no distension. Palpations: Abdomen is soft. Tenderness: There is no abdominal tenderness. Musculoskeletal: General: Swelling present. Cervical back: (more content not included)... [facility] 09-23-2023 History of Present illness Narrative Images from the original note were not included. Connected Care Unit Progress Note Patient Name: Emily Peralta Patient Facility: [facility] Admit Date 09/22/2023 Level of Care: Skilled SNF Attending: Sandra Kelly M.D. Service Date: 09/23/2023 Code Status: full code Chief Complaint: Evaluation regarding hospital discharge ASSESSMENT AND PLAN (N39.0, R31.9) Urinary tract infection with hematuria, site unspecified (primary encounter diagnosis) Collate administration N32.81 OAB overactive bladder UA positive given ceftriaxone Denies any urinary frequency, flank pain, or hematuria Continue Myrbetriq (I10) Hypertension, unspecified type Monitor vital signs Monitor labs (E03.8) Other specified hypothyroidism TSH to be drawn on 09/23 Continue levothyroxine (R53.81) Debility Certify therapies Maintain high falls risk precautions - pt/staff verbalize understanding validated via teach back Monitor safety awareness HPI: (Per hospital discharge) HOSPITAL COURSE: 82-year-old lady with known history of hypothyroidism, hypertension presented to the hospital with altered mental status. Likely secondary to UTI. UA was positive. She was treated with IV ceftriaxone with improvement in mental status. She did have acute hypoxic respiratory failure and chest x-ray was done which showed atelectasis. Improved with incentive spirometry. Currently on room air. She did have intermittent drowsiness secondary to taking her Vistaril and baclofen. Baclofen was made 3 times daily as needed and no further drowsiness noted. Patient is going to SNF in stable condition. Discharge plan discussed with the patient. Patient understands and agrees with the discharge plan. Malnutrition Diagnosis supported by Registered Dietitian:Severe Protein-Calorie Malnutrition Based on: Unintentional Weight Loss, Insufficient Energy Intake Assessment: I have reviewed the result of the malnutrition assessment and plan and agree Plan: Diet, Supplements [facility]CHAR[facility] DISPOSITION[facility] 09/23/2023 update Emily is sitting up in wheelchair she is alert and oriented x 3. She denies any shortness of breath, chest discomfort or pain. She does have complaints of generalized pain, she does take tramadol at home. Did speak with [facility] to get dosage. This was reordered. She denies any dysuria, flank pain, hematuria. She will have labs drawn on 09/24/2023. She has no concerns. Staff has no concerns. She is on Lasix twice a day, the hospital discontinued her potassium. She will be started on potassium 10 mEq, may change dosage once labs are returned. lReview of Systems Constitutional: Positive for activity change. HENT: Negative. Eyes: Negative. Respiratory: Negative for chest tightness and shortness of breath. Cardiovascular: Negative for chest pain and leg swelling. Gastrointestinal: Negative for abdominal pain. Genitourinary: Negative for difficulty urinating, dysuria, flank pain and frequency. Musculoskeletal: Positive for gait problem and myalgias. Neurological: Positive for weakness. Hematological: Negative. Psychiatric/Behavioral: Negative. No reports of falls/injuries, changes in cognition/behaviors, or any uncontrolled pain exacerbations. Medications: Medications listed in Epic during SNF admission may not be current. Refer to facility record. Patient records, current medications, most recent labs, family/social history (unchanged) Reviewed. Refer to facility records. OBJECTIVE: Labs/diagnostics: Latest Reference Range & Units 09/21/23 05:09 Sodium 136 - 145 mmol/L 132 (L) Potassium 3.5 - 5.1 mmol/L 3.9 Chloride 98 - 107 mmol/L 96 (L) CO2 21 - 32 mmol/L 32 BUN 7 - 26 mg/dL 7 Creatinine 0.51 - 0.95 mg/dL 0.71 Glucose 70 - 100 mg/dL 83 Calcium 8.5 - 10.5 mg/dL 10.3 Magnesium 1.6 - 2.6 mg/dL 1.9 Anion Gap 5 - 16 mmol/L 4 (L) eGFR >=60 mL/min/1.73m 84 (L): Data is abnormally low Vital Signs: BP 121/62 Pulse 86 Temp 36.5 C (97.7 F) Resp 18 SpO2 92% Physical Exam: Physical Exam Vitals reviewed. Constitutional: Appearance: Normal appearance. HENT: Head: Normocephalic. Right Ear: External ear normal. Left Ear: External ear normal. Nose: Nose normal. Mouth/Throat: Mouth: Mucous membranes are moist. Pharynx: Oropharynx is clear. Eyes: Pupils: Pupils are equal, round, and reactive to light. Cardiovascular: Rate and Rhythm: Normal rate and regular rhythm. Pulses: Normal pulses. Pulmonary: Effort: Pulmonary effort is normal. Breath sounds: Normal breath sounds. Abdominal: General: Bowel sounds are normal. There is no distension. Palpations: Abdomen is soft. Tenderness: There is no abdominal tenderness. Musculoskeletal: General: Swelling present. Cervical back: Normal range of motion and neck supple. Right lower leg: Edema present. Left lower leg: Edema present. Skin: General: Skin is warm and dry. Neurological: General: No focal deficit present. Mental Status: She is alert and oriented to person, place, and time. Motor: Weakness present. Gait: Gait abnormal. Psychiatric: Mood and Affect: Mood normal. Behavior: Behavior normal. POC discussed with appropriate parties and nursing staff. I spent a total of 30 minutes on the date of the service which included preparing to see the patient, [id number] patient care, completing clinical documentation, obtaining and/or reviewing separately obtained history, performing a medically appropriate examination, counseling and educating the patient/family/caregiver, ordering medications, tests, or procedures, communicating with other HCPs (not separately reported), independently interpreting results (not separately reported), communicating results to the patient/family/caregiver, and care coordination (not separately reported). This note was partially generated using [employer] voice recognition system, and there may be some incorrect words, spellings, and punctuation that were not noted in checking the note before saving. This note was partially generated using [employer] voice recognition system, and there may be some incorrect words, spellings, and punctuation that were not noted in checking the note before saving. Electronically signed by Kalli De Anda APRN.[employer] documented in this encounter [facility] 09-23-2023 Note HNO ID: [id number] Author: KAREN NOLEN RN Service: Nursing Author Type: Registered Nurse Type: Nursing Progress Note Filed: 09/23/2023 01:31 Note Text: Report called to nurse at [facility]. All questions answered. [facility] 09-23-2023 Note HNO ID: [id number] Author: KAREN NOLEN RN Service: Nursing Author Type: Registered Nurse Type: Nursing Progress Note Filed: 09/23/2023 01:21 Note Text: Assisted patient to ambulette w/c. PIV removed. All belonging sent with patient. [facility] 09-22-2023 Note HNO ID: [id number] Author: HILDA HALE RN Service: Nursing Author Type: Registered Nurse Type: Nursing Progress Note Filed: 09/22/2023 19:01 Note Text: Report called to Angie Wilkinson of [facility] 09-21-2023 Note [facility] 09-20-2023 Note [facility] 09-19-2023 Note [facility] 09-18-2023 Note [facility] 09-17-2023 Note [facility] 09-16-2023 Note [facility] 09-15-2023 Note [facility] 09-14-2023 Note [facility] 09-13-2023 Note [facility] 06-20-2023 Discharge summary Date of Service 06/20/23 Discharge Diagnosis 1. Acute hypoxic respiratory failure 2. Acute on chronic HFpEF exacerbation 3. Suspected JOCELIN 4. Bradycardia 5. Hypothyroidism 6. COPD without exacerbation 7. Other history of HTN, chronic back pain, recurrent UTIs, depression, morbid obesity, GERD Additional Orders: Other status: BMP,06/20/23 5:00:00 EDT, Next AM Draw (one day only), Blood, Once, Preferred Lab: [facility], Stop date 06/20/23 5:00:00 EDT(Complete) Other status: CBC,06/20/23 5:00:00 EDT, Next AM Draw (one day only), Blood, Once, Preferred Lab: [facility], Stop date 06/20/23 5:00:00 EDT(Complete) Ordered: Discharge,06/20/23 13:17:00 EDT, [facility] to: [facility] Ordered: Konsyl,Dose = 1 pkt, Oral, BID, PRN Constipation, 0 Refill(s) Ordered: Mylicon,Dose : 80 mg = 1 tab(s), Chewed, TID, PRN Gas, 0 Refill(s) Ordered: Transfer of Care Activity,As instructed by therapy, 06/20/23 13:17:00 EDT Ordered: Transfer of Care Admission Level of Care,Level of Care SNF, 06/20/23 13:17:50 EDT Ordered: Transfer of Care Code Status,Full Code, Constant Order Ordered: Transfer of Care Communication Order,Expect less than 30 day stay., 06/20/23 13:17:50 EDT Ordered: Transfer of Care Diet,Type of Diet: Regular Diet, 06/20/23 13:17:00 EDT Ordered: Transfer of Care Labwork,BMP, hypokalemia, follow-up within: 3-5 days, Results Notify to: EMILY MCCARTY MD, 06/20/23 13:17:00 EDT Ordered: Transfer of Care Labwork,thyroid studies, hypothyroidism, elevated TSH, follow-up within: 6 weeks, Results Notify to: EMILY MCCARTY MD, 06/20/23 13:17:00 EDT Ordered: Transfer of Care OT,Reason for therapy: weakness, 06/20/23 13:17:00 EDT Ordered: Transfer of Care Orders Electronically Signed By,06/20/23 13:17:00 EDT, WAQAS GONZALEZ MD Ordered: Transfer of Care Oxygen Therapy,Oxygen (CONTINUOUS), Mobile in the Home, Nasal Cannula, 4 liters per minute, 99 month(s), 06/20/23 13:17:00 EDT Ordered: Transfer of Care PT,Reason for therapy: weakness, 06/20/23 13:17:00 EDT Ordered: Transfer of Care Prognosis,Fair, Patient Aware: Yes Ordered: Transfer of Care Rehab Potential,Rehab potential fair, 06/20/23 13:17:50 EDT Ordered: Transfer/Change in Level of Care,06/20/23 11:41:00 EDT, Level of Care: Regular floor, Medication Review: I have assessed all medications Ordered: Tylenol,Start: 06/20/23 12:10:00 EDT, Dose = 650 mg, = 2 tab(s), Oral, q4h, PRN, Pain, scale 4-10, 06/20/23 12:10:00 EDT Ordered: Tylenol 325 mg oral capsule,Dose : 650 mg =, Oral, q4h, PRN Pain, scale 4-10, 0 Refill(s) Other status: ibuprofen,Start: 06/20/23 11:45:00 EDT, Dose = 400 mg, = 1 tab(s), Oral, Once, Stop: 06/20/23 11:45:00 EDT, 0, 06/20/23 11:40:00 EDT(Complete) Hospital Course 82-year-old female with past medical history of hypertension, hypothyroidism, GERD, COPD, chronic back pain, chronic diastolic heart failure, recurrent UTIs, osteoporosis, depression, morbid obesity and medical noncompliance. Patient presented to [facility] on 06/18/2023 with worsening shortness of breath and low heart rates. Patient states she noticed her heart rate would drop into the 40s at night. Lab work on admission showed a platelet count of 139, calcium of 11.1, otherwise unremarkable. Troponin was negative x 3. proBNP was 123. TSH was 31.216, patient admits she is noncompliant with taking her Synthroid dose. UA was not concerning for infection. D-dimer was less than 200. ABG showed a pH of 7.434, pCO2 of 51.5. Chest x-ray completed showed no acute process. Patient was afebrile, blood pressure 133/70, 92% on room air. Patient did drop to 87% on room air requiring 2 L nasal cannula. Patient was treated with IV Lasix and has transitioned to her home dose of Lasix. Echocardiogram was completed. Cardiology evaluated the patient and felt bradycardia was likely secondary to missed Synthroid doses. Patient instructed on how to take Synthroid and to be compliant with this at discharge. Patient did qualify for home oxygen, she will be discharged on 2L nasal cannula. PT/OT recommending SNF. The patient is stable for discharge to [facility] today. Updated daughter Ambika over phone. Case d/w Dr. Gonzalez. Allergies Ambien Aspartame (non-codified) Ativan Nembutal Percocet 7.5/325 Tape, plastic (Rash) codeine morphine Consults Consult to Physician - Ordered -- 06/18/23 20:40:00 EDT, JAZMINE HOLLIDAY MD, Routine, bradycardia at home Imaging Results and Diagnostics XR Chest 1 View Result Date: June 18, 2023 Verified By: INDY RAMIREZ MD CLINICAL STATEMENT: IMPRESSION: No acute pulmonary disease. Physical Exam Vitals and Measurements T: 36.6 C (Oral) TMIN: 36.2 C (Oral) TMAX: 36.8 C (Oral) HR: 72 RR: 18 BP: 120/66 SpO2: 95% Weight Dosing Weight: 104.5 kg (06/18/23) Dosing Weight: 104.5 kg (06/18/23) General: No acute distress. Alert and Appropriate Skin: No rash. Warm, Dry HEENT: Head normocephalic and atraumatic. No lesions. Pupils equal in size. Extraocular movements within normal limits. Nose: No septal deviation. Mouth: Oropharynx mucosa is without lesion. Neck: Supple. No lymphadenopathy, thyromegaly noted. Lungs: Bilaterally clear/diminished breath sounds with no crepitation or wheeze. Unlabored on 2L Cardiovascular: Heart is regular rhythm, S1S2, No extra-audible heart tones Abdomen: Abdomen is soft, nontender. Bowel sounds positive all four quadrants. Extremities: No clubbing, cyanosis. +1 BLE edema. Peripheral and distal pulses palpable. No calf tenderness. Adequate peripheral circulation. Neurological: The patient is awake, oriented to time, people and place. Following simple commands, moving all extremities. Code Status Code Status - Ordered -- 06/18/23 11:32:00 EDT, Full Code, Constant Order Admission Date 06/18/23 Discharge Date 06/20/23 Medications New Prescription acetaminophen (Tylenol 325 mg oral capsule)650 Milligram by mouth every 4 hours as needed Pain, scale 4-10. psyllium (Konsyl)1 packet(s) by mouth two (2) times a day as needed Constipation. simethicone (Mylicon)80 Milligram Chewed three (3) times a day as needed Gas. Unchanged albuterol (Albuterol (Eqv-Proventil HFA) 90 mcg/inh inhalation aerosol)2 inh by inhalation four (4) times a day as needed NEEDED FOR WHEEZING. Refills: 3. albuterol-ipratropium (albuterol-ipratropium 2.5 mg-0.5 mg/3 mL inhalation solution)3 Milliliter by inhalation four (4) times a day. Refills: 3. amLODIPine (amLODIPine 5 mg oral tablet)1 tab(s) by mouth once a day. Refills: 3. ascorbic acid (Vitamin C 500 mg oral tablet)1 tab(s) by mouth once a day. aspirin (aspirin 325 mg oral delayed release tablet)1 tab(s) by mouth once a day. baclofen (baclofen 10 mg oral tablet)1 tab(s) by mouth three (3) times a day. Refills: 2. beclomethasone (Qvar Redihaler 40 mcg/inh inhalation aerosol)1 puff(s) by inhalation two (2) times a day. Refills: 4. cholecalciferol (Vitamin D3 25 mcg (1000 intl units) oral capsule)1 cap by mouth once a day. esomeprazole (NexIUM 20 mg oral delayed release capsule)1 cap by mouth once a day. fluticasone (Flovent HFA 44 mcg/inh inhalation aerosol)2 inh by inhalation two (2) times a day. Refills: 11. furosemide (Lasix 40 mg oral tablet)1 tab(s) by mouth two (2) times a day for 90 Days. Refills: 4. herbal/nutritional product (flax seed oil 1000 mg oral capsule)1 cap by mouth once a day. herbal/nutritional product (Prevagen tablet)1 tab(s) by mouth every day. Refills: 0. herbal/nutritional product (Probiotic)1 cap by mouth once a day. hydroCHLOROthiazide (hydroCHLOROthiazide 25 mg oral tablet)1 tab(s) by mouth once a day. Refills: 2. hydrOXYzine (Vistaril 50 mg oral capsule)1 cap by mouth four (4) times a day as needed as needed for anxiety. Refills: 5. levothyroxine (levothyroxine 175 mcg (0.175 mg) oral tablet)1 tab(s) by mouth once a day. Refills: 3. magnesium oxide (Magnesium 250 mg tablet)1 tab(s) by mouth two (2) times a day. metoclopramide (metoclopramide 5 mg oral tablet)1 tab(s) by mouth three (3) times a day. 30 MINUTES BEFORE 2 MEALS AND AT BEDTIME. Refills: 0. mirabegron (Myrbetriq 25 mg oral tablet, extended release)25 Milligram by mouth two (2) times a day. Refills: 3. omega-3 polyunsaturated fatty acids (omega-3 fish oil 1000 mg oral capsule)1 cap by mouth two (2) times a day. omeprazole (omeprazole 20 mg oral delayed release capsule)1 cap by mouth daily at bedtime. Refills: 3. potassium chloride (potassium chloride 10 mEq oral capsule, extended release)3 cap by mouth two (2) times a day. Refills: 3. wheat dextrin (Benefiber oral powder for reconstitution)5 Milliliter by mouth two (2) times a day as needed for constipation. Refills: 0. zinc acetate (zinc (as acetate) 25 mg oral capsule)1 cap by mouth three (3) times a day. Discontinued labetalol (labetalol 200 mg oral tablet)1 tab(s) by mouth once a day. Refills: 2. Follow Up Follow Up with LINDA TEE When Within 1-2 days Why: Follow-up for sleep study Where: [address] [facility] [address] [place] [address]- [phone] Business (1) Follow Up with AUDRA CALL When Within 1-2 days Where: [address] [facility] [address] [facility] [place] [address]- Business (1) Follow Up with Patient is discharged to [facility]. Please call report to [phone]. When Within 1-2 days Follow Up with EMILY MCCARTY [facility] When Within 1-2 days Why: Please call the office to schedule a follow-up appointment. Where: [address] [facility] [address] [facility] [place] [address]- Business (1) Follow Up Appointments Transfer of Care OT - Ordered -- Reason for therapy: weakness, 06/20/23 13:17:00 EDT Transfer of Care PT - Ordered -- Reason for therapy: weakness, 06/20/23 13:17:00 EDT Follow Up Labs/Studies Discharge Labs Transfer of Care Labwork - Ordered -- BMP, hypokalemia, follow-up within: 3-5 days, Results Notify to: EMILY MCCARTY MD, 06/20/23 13:17:00 EDT Transfer of Care Labwork - Ordered -- thyroid studies, hypothyroidism, elevated TSH, follow-up within: 6 weeks, Results Notify to: EMILY MCCARTY MD, 06/20/23 13:17:00 EDT Discharge Studies No Follow-up Studies Discharge Diet Transfer of Care Diet - Ordered -- Type of Diet: Regular Diet, 06/20/23 13:17:00 EDT Discharge Activity Transfer of Care Activity - Ordered -- As instructed by therapy, 06/20/23 13:17:00 EDT Condition on Discharge Stable Discharge Disposition SNF Information Provided To patient daughter ambika Time Spent 32 minutes Digitally Signed by BAYLEE STONE on 06/20/2023 01:20 PM [facility] 06-20-2023 Note Discharge Instructions Thank you for allowing [facility] to assist you with your healthcare needs. The following is important discharge information regarding your hospital visit. Your Care Team EMILY MCCARTY MD Your Diagnosis Bradycardia COPD exacerbation Hypoxia Shortness of breath What to do next Scheduled Follow-Up Appointments Appointment Type When With Where Contact InformationEcho - Echocardiogram Adult 07/14/2023 10:00 AM EDT Amie CV URO OV 07/30/2023 10:40 AM EDT MARNI SAMSON [facility] Medicare 09/01/2023 02:15 PM EDT EMILY MCCARTY MD [facility] Follow Up Appointments Follow Up with LINDA TEE When Within 1-2 days Why: Follow-up for sleep study Where: [address] [facility] [address] [place] [address]- [phone] Business (1) Follow Up with AUDRA CALL When Within 1-2 days Where: [address] [place] [address] [address] [facility] [place] [address]- Business (1) Follow Up with Patient is discharged to [facility]. Please call report to [phone]. When Within 1-2 days Follow Up with EMILY MCCARTY [facility] When Within 1-2 days Why: Please call the office to schedule a follow-up appointment. Where: [address] [facility] [address] [facility] [place] [address]- Business (1) The Following Activity and Diet Have Been Ordered for You Transfer of Care Activity - Ordered -- As instructed by therapy, 06/20/23 13:17:00 EDT Transfer of Care Diet - Ordered -- Type of Diet: Regular Diet, 06/20/23 13:17:00 EDT The Following Equipment Has Been Ordered for You No qualifying data available. The Following Treatments Have Been Ordered for You Discharge Labs Transfer of Care Labwork - Ordered -- BMP, hypokalemia, follow-up within: 3-5 days, Results Notify to: EMILY MCCARTY MD, 06/20/23 13:17:00 EDT Transfer of Care Labwork - Ordered -- thyroid studies, hypothyroidism, elevated TSH, follow-up within: 6 weeks, Results Notify to: EMILY MCCARTY MD, 06/20/23 13:17:00 EDT Discharge Radiology No qualifying data available. Other Therapies Transfer of Care OT - Ordered -- Reason for therapy: weakness, 06/20/23 13:17:00 EDT Transfer of Care PT - Ordered -- Reason for therapy: weakness, 06/20/23 13:17:00 EDT Post Acute Orders Transfer of Care Admission Level of Care - Ordered -- Level of Care SNF, 06/20/23 13:17:50 EDT Transfer of Care Code Status - Ordered -- Full Code, Constant Order Transfer of Care Communication Order - Ordered -- Expect less than 30 day stay., 06/20/23 13:17:50 EDT Transfer of Care Labwork - Ordered -- BMP, hypokalemia, follow-up within: 3-5 days, Results Notify to: EMILY MCCARTY MD, 06/20/23 13:17:00 EDT Transfer of Care Labwork - Ordered -- thyroid studies, hypothyroidism, elevated TSH, follow-up within: 6 weeks, Results Notify to: EMILY MCCARTY MD, 06/20/23 13:17:00 EDT Transfer of Care Orders Electronically Signed By - Ordered -- 06/20/23 13:17:00 EDTILAN OKARI MD Transfer of Care Oxygen Therapy - Ordered -- Oxygen (CONTINUOUS), Mobile in the Home, Nasal Cannula, 4 liters per minute, 99 month(s), 06/20/23 13:17:00 EDT Transfer of Care Prognosis - Ordered -- Fair, Patient Aware: Yes Transfer of Care Rehab Potential - Ordered -- Rehab potential fair, 06/20/23 13:17:50 EDT Someone Will Contact You Regarding These Home Health Referrals No home referrals have been ordered for you. No one will call you. Allergies Ambien Aspartame (non-codified) Ativan Nembutal Percocet 7.5/325 Tape, plastic (Rash) codeine morphine Medications Please ask your primary doctor or pharmacist before taking any other medication not listed, including over the counter drugs, herbal medications, vitamins and or supplements as they may interact with your home medications. What How Much When Instructions Last Dose New acetaminophen (Tylenol 325 mg oral capsule) 650 Milligram by mouth Every 4 hours as needed for Pain, scale 4-10 New psyllium (Konsyl) 1 packet(s) by mouth Two (2) times a day as needed for Constipation New simethicone (Mylicon) 80 Milligram Chewed Three (3) times a day as needed for Gas Unchanged albuterol (Albuterol (Eqv-Proventil HFA) 90 mcg/ inh inhalation aerosol) 2 inh by inhalation Four (4) times a day as needed for NEEDED FOR WHEEZING Unchanged albuterol-ipratropium (albuterol-ipratropium 2.5 mg-0.5 mg/ 3 mL inhalation solution) 3 Milliliter by inhalation Four (4) times a day Unchanged amLODIPine (amLODIPine 5 mg oral tablet) 1 tab(s) by mouth Once a day Unchanged ascorbic acid (Vitamin C 500 mg oral tablet) 1 tab(s) by mouth Once a day Unchanged aspirin (aspirin 325 mg oral delayed release tablet) 1 tab(s) by mouth Once a day Unchanged baclofen (baclofen 10 mg oral tablet) 1 tab(s) by mouth Three (3) times a day Unchanged beclomethasone (Qvar Redihaler 40 mcg/ inh inhalation aerosol) 1 puff(s) by inhalation Two (2) times a day Unchanged cholecalciferol (Vitamin D3 25 mcg (1000 intl units) oral capsule) 1 cap by mouth Once a day Unchanged esomeprazole (NexIUM 20 mg oral delayed release capsule) 1 cap by mouth Once a day Unchanged fluticasone (Flovent HFA 44 mcg/ inh inhalation aerosol) 2 inh by inhalation Two (2) times a day Unchanged furosemide (Lasix 40 mg oral tablet) 1 tab(s) by mouth Two (2) times a day Duration: 90 Days Unchanged herbal/ nutritional product (flax seed oil 1000 mg oral capsule) 1 cap by mouth Once a day Unchanged herbal/ nutritional product (Prevagen tablet) 1 tab(s) by mouth Every day Unchanged herbal/ nutritional product (Probiotic) 1 cap by mouth Once a day Unchanged hydroCHLOROthiazide (hydroCHLOROthiazide 25 mg oral tablet) 1 tab(s) by mouth Once a day Unchanged hydrOXYzine (Vistaril 50 mg oral capsule) 1 cap by mouth Four (4) times a day as needed for as needed for anxiety Unchanged levothyroxine (levothyroxine 175 mcg (0.175 mg) oral tablet) 1 tab(s) by mouth Once a day Unchanged magnesium oxide (Magnesium 250 mg tablet) 1 tab(s) by mouth Two (2) times a day Unchanged metoclopramide (metoclopramide 5 mg oral tablet) 1 tab(s) by mouth Three (3) times a day 30 MINUTES BEFORE 2 MEALS AND AT BEDTIME Unchanged mirabegron (Myrbetriq 25 mg oral tablet, extended release) 25 Milligram by mouth Two (2) times a day Unchanged omega-3 polyunsaturated fatty acids (omega-3 fish oil 1000 mg oral capsule) 1 cap by mouth Two (2) times a day Unchanged omeprazole (omeprazole 20 mg oral delayed release capsule) 1 cap by mouth Daily at bedtime Unchanged potassium chloride (potassium chloride 10 mEq oral capsule, extended release) 3 cap by mouth Two (2) times a day Unchanged wheat dextrin (Benefiber oral powder for reconstitution) 5 Milliliter by mouth Two (2) times a day as needed for for constipation Unchanged zinc acetate (zinc (as acetate) 25 mg oral capsule) 1 cap by mouth Three (3) times a day What How Much When Comments Stop Taking labetalol (labetalol 200 mg oral tablet) 1 tab(s) by mouth Once a day Please take this list to your next doctor s visit. Bring all medications you take, including over the counter medications, herbals and other supplements with you to your doctor s visit. Patients and families are reminded to discard old lists and to update any records with all medication providers or retail pharmacies. Additional Information VACCINATE! IT SAVES LIVES! Members of the community who have not yet received the COVID-19 vaccine and would like to receive it can visit one of [facility] vaccine clinics. There are many vaccine clinic locations within the [facility]. For locations and available times, please visit https://gettheshot.coronavirus.[place].gov/. It is important to note that some COVID mobile vaccine clinics are held outdoors and may be canceled in rainy or stormy conditions. To learn more about pediatric vaccinations (ages 5-11), we invite you to visit the [facility] webpage. [email or web address]/pag [email or web address]-[email or web address]-Vfbtskhgx.html To learn more about the COVID-19 vaccine, we invite you to visit the CDC website for a list of frequently asked questions.https://www.cdc.gov/luz navirus/2019-ncov/vaccines/faq.htm l [facility] Patient Portal Access Instructions: Stay connected with your healthcare team and access your personal medical information anytime with the [facility] Patient Portal. Please follow the directions below to create your [facility] account: 1.Access the email account you provided upon registration to the hospital/physician office.2.Look for an invitation email from [facility].3.Open the email and access the invitation link: Accept Invitation to [facility].4.Fill in the required carpenter to create your account. To access your account, visit [employer]. Click the blue button labeled Access Patient Portal and then log in with the username and password that you created in the steps above. You will be able to view your test results, lab results, a summary of your visits, upcoming appointments and more. There is also a convenient messaging option where you can send secure messages to your provider. In addition, you will have the ability to download any documents or summaries to your computer and/or send the information securely to a physician. Remember that your healthcare information is confidential, so carefully consider who you will allow to register on the [facility] Patient Portal for access to your information. You can also access the [facility] Patient Portal on the [employer] vidhya. Simply click on Patient Portal and then log into your account. If you would like to receive a full copy of your medical records, please contact the [facility] Medical Records Department by calling [phone], Friday through Friday between 8 a.m. and 4:30 p.m. HOW TO SAFELY DISPOSE OF PRESCRIPTION MEDICATIONS Please use one of the following methods to safely dispose of your unused medications. 1.Use a drug disposal kit: the drug disposal pouch allows you to safely discard your old and unused drugs. Ask your nurse to give you one when you are discharged.2.Visit a local take-back location: Many local pharmacies and police departments have programs that collect old and unwanted prescription drugs. Call your local pharmacy or go to http://[employer].MixRank/4N4Kg2a to find one close to you.3.Make use of household items: Use cat litter or old coffee grounds to dispose medications if other options are not available. Mix your drugs with these household products, seal them in an airtight container and throw it into the garbage. Call [facility]: [phone] to be sure your drugs can be disposed of in this way. Some medicines may require a different approach.4.Never flush your medications down the toilet. IF YOU HAVE BEEN PRESCRIBED AN OPIOID FOR PAIN If you have been prescribed an opioid (such as hydrocodone, oxycodone or morphine), it is critical to understand the possible side effects and risks of opioid pain medications. Even when taken as directed, opioids can have several side effects including: Tolerance, meaning you might need to take more of a medication for the same pain relief. Nausea, vomiting and/or constipation. Sleepiness, dizziness, dry mouth, confusion, depression or itching. Physical dependence, meaning you have withdrawal symptoms when a medication is stopped, can develop within a few days. KNOW YOUR RESPONSIBILITIES It is important to know exactly how much and how often to take the opioid pain medications you are prescribed. Never take opioids in higher amounts or more often than prescribed. Do not combine opioids with alcohol or other drugs that cause drowsiness, such as benzodiazepines, also known as benzos, including diazepam and alprazolam, muscle relaxants or sleep aids. Never sell or share prescription opioids. This is illegal. Store opioids in a secure place and out of reach of others (including children, family, friends and visitors). The last page of this document has been signed and retained as a CHART COPY. Signatures Patient Education Materials Medication Leaflets My discharge plan and instructions have been reviewed and explained to me and I,EMILY PERALTA understand my current condition and have read and understand these discharge instructions. I have received a written copy of the plan/instructions. If I have questions, I am aware that I should contact my doctor. Patient/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 Teacher Signature: Date/Time: Relationship to Patient: ___ Witness Name/Signature: Date/Time: [facility] 06-20-2023 Discharge summary Date of Service 06/20/23 Discharge Diagnosis 1. Acute hypoxic respiratory failure 2. Acute on chronic HFpEF exacerbation 3. Suspected JOCELIN 4. Bradycardia 5. Hypothyroidism 6. COPD without exacerbation 7. Other history of HTN, chronic back pain, recurrent UTIs, depression, morbid obesity, GERD Additional Orders: Other status: BMP,06/20/23 5:00:00 EDT, Next AM Draw (one day only), Blood, Once, Preferred Lab: [facility], Stop date 06/20/23 5:00:00 EDT(Complete) Other status: CBC,06/20/23 5:00:00 EDT, Next AM Draw (one day only), Blood, Once, Preferred Lab: [facility], Stop date 06/20/23 5:00:00 EDT(Complete) Ordered: Discharge,06/20/23 13:17:00 EDT, [facility] Ordered: Konsyl,Dose = 1 pkt, Oral, BID, PRN Constipation, 0 Refill(s) Ordered: Mylicon,Dose : 80 mg = 1 tab(s), Chewed, TID, PRN Gas, 0 Refill(s) Ordered: Transfer of Care Activity,As instructed by therapy, 06/20/23 13:17:00 EDT Ordered: Transfer of Care Admission Level of Care,Level of Care SNF, 06/20/23 13:17:50 EDT Ordered: Transfer of Care Code Status,Full Code, Constant Order Ordered: Transfer of Care Communication Order,Expect less than 30 day stay., 06/20/23 13:17:50 EDT Ordered: Transfer of Care Diet,Type of Diet: Regular Diet, 06/20/23 13:17:00 EDT Ordered: Transfer of Care Labwork,BMP, hypokalemia, follow-up within: 3-5 days, Results Notify to: EMILY MCCARTY MD, 06/20/23 13:17:00 EDT Ordered: Transfer of Care Labwork,thyroid studies, hypothyroidism, elevated TSH, follow-up within: 6 weeks, Results Notify to: EMILY MCCARTY MD, 06/20/23 13:17:00 EDT Ordered: Transfer of Care OT,Reason for therapy: weakness, 06/20/23 13:17:00 EDT Ordered: Transfer of Care Orders Electronically Signed By,06/20/23 13:17:00 EDT, WAQAS GONZALEZ MD Ordered: Transfer of Care Oxygen Therapy,Oxygen (CONTINUOUS), Mobile in the Home, Nasal Cannula, 4 liters per minute, 99 month(s), 06/20/23 13:17:00 EDT Ordered: Transfer of Care PT,Reason for therapy: weakness, 06/20/23 13:17:00 EDT Ordered: Transfer of Care Prognosis,Fair, Patient Aware: Yes Ordered: Transfer of Care Rehab Potential,Rehab potential fair, 06/20/23 13:17:50 EDT Ordered: Transfer/Change in Level of Care,06/20/23 11:41:00 EDT, Level of Care: Regular floor, Medication Review: I have assessed all medications Ordered: Tylenol,Start: 06/20/23 12:10:00 EDT, Dose = 650 mg, = 2 tab(s), Oral, q4h, PRN, Pain, scale 4-10, 06/20/23 12:10:00 EDT Ordered: Tylenol 325 mg oral capsule,Dose : 650 mg =, Oral, q4h, PRN Pain, scale 4-10, 0 Refill(s) Other status: ibuprofen,Start: 06/20/23 11:45:00 EDT, Dose = 400 mg, = 1 tab(s), Oral, Once, Stop: 06/20/23 11:45:00 EDT, 0, 06/20/23 11:40:00 EDT(Complete) Hospital Course 82-year-old female with past medical history of hypertension, hypothyroidism, GERD, COPD, chronic back pain, chronic diastolic heart failure, recurrent UTIs, osteoporosis, depression, morbid obesity and medical noncompliance. Patient presented to [facility] on 06/18/2023 with worsening shortness of breath and low heart rates. Patient states she noticed her heart rate would drop into the 40s at night. Lab work on admission showed a platelet count of 139, calcium of 11.1, otherwise unremarkable. Troponin was negative x 3. proBNP was 123. TSH was 31.216, patient admits she is noncompliant with taking her Synthroid dose. UA was not concerning for infection. D-dimer was less than 200. ABG showed a pH of 7.434, pCO2 of 51.5. Chest x-ray completed showed no acute process. Patient was afebrile, blood pressure 133/70, 92% on room air. Patient did drop to 87% on room air requiring 2 L nasal cannula. Patient was treated with IV Lasix and has transitioned to her home dose of Lasix. Echocardiogram was completed. Cardiology evaluated the patient and felt bradycardia was likely secondary to missed Synthroid doses. Patient instructed on how to take Synthroid and to be compliant with this at discharge. Patient did qualify for home oxygen, she will be discharged on 2L nasal cannula. PT/OT recommending SNF. The patient is stable for discharge to [facility]. Updated daughter Ambika over phone. Case d/w Dr. Gonzalez. Allergies Ambien Aspartame (non-codified) Ativan Nembutal Percocet 7.5/325 Tape, plastic (Rash) codeine morphine Consults Consult to Physician - Ordered -- 06/18/23 20:40:00 EDT, JAZMINE HOLLIDAY MD, Routine, bradycardia at home Imaging Results and Diagnostics XR Chest 1 View Result Date: June 18, 2023 Verified By: INDY RAMIREZ MD CLINICAL STATEMENT: IMPRESSION: No acute pulmonary disease. Physical Exam Vitals and Measurements T: 36.6 C (Oral) TMIN: 36.2 C (Oral) TMAX: 36.8 C (Oral) HR: 72 RR: 18 BP: 120/66 SpO2: 95% Weight Dosing Weight: 104.5 kg (04/10/24) Dosing Weight: 104.5 kg (06/18/23) General: No acute distress. Alert and Appropriate Skin: No rash. Warm, Dry HEENT: Head normocephalic and atraumatic. No lesions. Pupils equal in size. Extraocular movements within normal limits. Nose: No septal deviation. Mouth: Oropharynx mucosa is without lesion. Neck: Supple. No lymphadenopathy, thyromegaly noted. Lungs: Bilaterally clear/diminished breath sounds with no crepitation or wheeze. Unlabored on 2L Cardiovascular: Heart is regular rhythm, S1S2, No extra-audible heart tones Abdomen: Abdomen is soft, nontender. Bowel sounds positive all four quadrants. Extremities: No clubbing, cyanosis. +1 BLE edema. Peripheral and distal pulses palpable. No calf tenderness. Adequate peripheral circulation. Neurological: The patient is awake, oriented to time, people and place. Following simple commands, moving all extremities. Code Status Code Status - Ordered -- 06/18/23 11:32:00 EDT, Full Code, Constant Order Admission Date 06/18/23 Discharge Date 06/20/23 Medications New Prescription acetaminophen (Tylenol 325 mg oral capsule)650 Milligram by mouth every 4 hours as needed Pain, scale 4-10. psyllium (Konsyl)1 packet(s) by mouth two (2) times a day as needed Constipation. simethicone (Mylicon)80 Milligram Chewed three (3) times a day as needed Gas. Unchanged albuterol (Albuterol (Eqv-Proventil HFA) 90 mcg/inh inhalation aerosol)2 inh by inhalation four (4) times a day as needed NEEDED FOR WHEEZING. Refills: 3. albuterol-ipratropium (albuterol-ipratropium 2.5 mg-0.5 mg/3 mL inhalation solution)3 Milliliter by inhalation four (4) times a day. Refills: 3. amLODIPine (amLODIPine 5 mg oral tablet)1 tab(s) by mouth once a day. Refills: 3. ascorbic acid (Vitamin C 500 mg oral tablet)1 tab(s) by mouth once a day. aspirin (aspirin 325 mg oral delayed release tablet)1 tab(s) by mouth once a day. baclofen (baclofen 10 mg oral tablet)1 tab(s) by mouth three (3) times a day. Refills: 2. beclomethasone (Qvar Redihaler 40 mcg/inh inhalation aerosol)1 puff(s) by inhalation two (2) times a day. Refills: 4. cholecalciferol (Vitamin D3 25 mcg (1000 intl units) oral capsule)1 cap by mouth once a day. esomeprazole (NexIUM 20 mg oral delayed release capsule)1 cap by mouth once a day. fluticasone (Flovent HFA 44 mcg/inh inhalation aerosol)2 inh by inhalation two (2) times a day. Refills: 11. furosemide (Lasix 40 mg oral tablet)1 tab(s) by mouth two (2) times a day for 90 Days. Refills: 4. herbal/nutritional product (flax seed oil 1000 mg oral capsule)1 cap by mouth once a day. herbal/nutritional product (Prevagen tablet)1 tab(s) by mouth every day. Refills: 0. herbal/nutritional product (Probiotic)1 cap by mouth once a day. hydroCHLOROthiazide (hydroCHLOROthiazide 25 mg oral tablet)1 tab(s) by mouth once a day. Refills: 2. hydrOXYzine (Vistaril 50 mg oral capsule)1 cap by mouth four (4) times a day as needed as needed for anxiety. Refills: 5. levothyroxine (levothyroxine 175 mcg (0.175 mg) oral tablet)1 tab(s) by mouth once a day. Refills: 3. magnesium oxide (Magnesium 250 mg tablet)1 tab(s) by mouth two (2) times a day. metoclopramide (metoclopramide 5 mg oral tablet)1 tab(s) by mouth three (3) times a day. 30 MINUTES BEFORE 2 MEALS AND AT BEDTIME. Refills: 0. mirabegron (Myrbetriq 25 mg oral tablet, extended release)25 Milligram by mouth two (2) times a day. Refills: 3. omega-3 polyunsaturated fatty acids (omega-3 fish oil 1000 mg oral capsule)1 cap by mouth two (2) times a day. omeprazole (omeprazole 20 mg oral delayed release capsule)1 cap by mouth daily at bedtime. Refills: 3. potassium chloride (potassium chloride 10 mEq oral capsule, extended release)3 cap by mouth two (2) times a day. Refills: 3. wheat dextrin (Benefiber oral powder for reconstitution)5 Milliliter by mouth two (2) times a day as needed for constipation. Refills: 0. zinc acetate (zinc (as acetate) 25 mg oral capsule)1 cap by mouth three (3) times a day. Discontinued labetalol (labetalol 200 mg oral tablet)1 tab(s) by mouth once a day. Refills: 2. Follow Up Follow Up with LINDA TEE When Within 1-2 days Why: Follow-up for sleep study Where: [address] [facility] [address] [place] [address]- [phone] Business (1) Follow Up with AUDRA CALL When Within 1-2 days Where: [address] [place] [address] [id number] [facility] [place] [address]- Business (1) Follow Up with Patient is discharged to [facility]. Please call report to [phone]. When Within 1-2 days Follow Up with EMILY MCCARTY [facility] When Within 1-2 days Why: Please call the office to schedule a follow-up appointment. Where: [address] [facility] [address] [facility] [place] [address]- Business (1) Follow Up Appointments Transfer of Care OT - Ordered -- Reason for therapy: weakness, 06/20/23 13:17:00 EDT Transfer of Care PT - Ordered -- Reason for therapy: weakness, 06/20/23 13:17:00 EDT Follow Up Labs/Studies Discharge Labs Transfer of Care Labwork - Ordered -- BMP, hypokalemia, follow-up within: 3-5 days, Results Notify to: EMILY MCCARTY MD, 06/20/23 13:17:00 EDT Transfer of Care Labwork - Ordered -- thyroid studies, hypothyroidism, elevated TSH, follow-up within: 6 weeks, Results Notify to: EMILY MCCARTY MD, 06/20/23 13:17:00 EDT Discharge Studies No Follow-up Studies Discharge Diet Transfer of Care Diet - Ordered -- Type of Diet: Regular Diet, 06/20/23 13:17:00 EDT Discharge Activity Transfer of Care Activity - Ordered -- As instructed by therapy, 06/20/23 13:17:00 EDT Condition on Discharge Stable Discharge Disposition SNF Information Provided To patient daughter ambika Time Spent 32 minutes Digitally Signed by BAYLEE STONE on 06/20/2023 01:20 PM [facility] 06-20-2023 Note Exam Date Time Procedure Performing Provider Status 06/20/23 12:37 PM Echocardiogram, Adult - CV Auth (Verified) [facility] 04-12-2024 Note Date of Service 06/20/23 Chief Complaint knee pain, generalized weakness Subjective 82-year-old female with past medical history of hypertension, hypothyroidism, GERD, COPD, chronic back pain, chronic diastolic heart failure, recurrent UTIs, osteoporosis, depression, morbid obesity and medical noncompliance. Patient presented to [facility] on 06/18/2023 with worsening shortness of breath and low heart rates. Patient states she noticed her heart rate would drop into the 40s at night. Lab work on admission showed a platelet count of 139, calcium of 11.1, otherwise unremarkable. Troponin was negative x 3. proBNP was 123. TSH was 31.216, patient admits she is noncompliant with taking her Synthroid dose. UA was not concerning for infection. D-dimer was less than 200. ABG showed a pH of 7.434, pCO2 of 51.5. Chest x-ray completed showed no acute process. Patient was afebrile, blood pressure 133/70, 92% on room air. Patient did drop to 87% on room air requiring 2 L nasal cannula. Patient was treated with IV Lasix and has transitioned to her home dose of Lasix. Echocardiogram is pending. Cardiology following, felt bradycardia was likely secondary to missed Synthroid doses. PT/OT recommending SNF. Patient seen today. She was upset that she does not have help at home. She wants to go home but is afraid she cannot care for herself safely. Patient denied CP or SOB. She states she is feeling better. She denied abdominal pain, N/V/D. She does complain of knee pain. Objective Vitals and Measurements T: 36.8 C (Oral) TMIN: 36.2 C (Oral) TMAX: 36.8 C (Oral) HR: 73 RR: 18 BP: 124/67 SpO2: 93% Intake and Output 7AM Yesterday to 7AM Today Intake and Output (Last 24 hours) Intake Oral Intake 700.00 Output Urine Voided 300.00 Urinary Catheter Output: 1100.00 Stool Count 0.00 Total Summary Total Intake 700.00 Total Output 1400.00 Fluid Balance -700.00 Physical Exam General: No acute distress. Alert and Appropriate Skin: No rash. Warm, Dry HEENT: Head normocephalic and atraumatic. No lesions. Pupils equal in size. Extraocular movements within normal limits. Nose: No septal deviation. Mouth: Oropharynx mucosa is without lesion. Neck: Supple. No lymphadenopathy, thyromegaly noted. Lungs: Bilaterally clear/diminished breath sounds with no crepitation or wheeze. Unlabored on 2L Cardiovascular: Heart is regular rhythm, S1S2, No extra-audible heart tones Abdomen: Abdomen is soft, nontender. Bowel sounds positive all four quadrants. Extremities: No clubbing, cyanosis. +1 BLE edema. Peripheral and distal pulses palpable. No calf tenderness. Adequate peripheral circulation. Neurological: The patient is awake, oriented to time, people and place. Following simple commands, moving all extremities. Weight Dosing Weight: 104.5 kg (06/18/23) Dosing Weight: 104.5 kg (06/18/23) Medications Medications (23) Active Scheduled: (16) albuterol - ipratropium 2.5 mg-0.5 mg/3 mL Inhal Lydia UD 3 mL, Inhalation, BIDRT amLODIPine 5 mg tablet 5 mg 1 tab(s), Oral, qDay aspirin 325 mg EC 325 mg 1 tab(s), Oral, qDay baclofen 10 mg tablet 10 mg 1 tab(s), Oral, TID budesonide 0.25 mg/2 mL Susp UD 0.25 mg 2 mL, Inhalation, BIDRT cholecalciferol 25 mcg tablet (Vit D3 1000 units) 25 mcg 1 tab(s), Oral, qDay enoxaparin 40 mg/ 0.4mL syringe 40 mg 0.4 mL, Subcutaneous, qDay furosemide 40 mg tablet 40 mg 1 tab(s), Oral, BID ibuprofen 400 mg tablet 400 mg 1 tab(s), Oral, Once levothyroxine 175 mcg tablet 175 mcg 1 tab(s), Oral, qDay magnesium oxide 400 mg Tablet 200 mg 0.5 tab(s), Oral, BID metoclopramide 5 mg tablet 5 mg 1 tab(s), Oral, TID mirabegron 25 mg ER tablet 25 mg 1 tab(s), Oral, BID imyht-1-byfn ethyl esters 1000 mg capsule 1,000 mg 1 cap(s), Oral, BID pantoprazole 20 mg EC tablet 20 mg 1 tab(s), Oral, BID potassium chloride 10 mEq ER capsule 30 mEq 3 cap(s), Oral, BIDM Continuous: (0) PRN: (7) acetaminophen 325 mg Tablet 650 mg 2 tab(s), Oral, q6h acetaminophen 325 mg Tablet 650 mg 2 tab(s), Oral, q4h albuterol 0.083% Soln UD (2.5mg/3 mL) 2.5 mg 3 mL, Inhalation, QIDRT hydroxyzine pamoate 50 mg capsule 50 mg 1 cap(s), Oral, QID ondansetron 2 mg/ 1 mL 2 mL INJ 4 mg 2 mL, IV Push, q4h psyllium REC Packet 1 packet(s), Oral, BID simethicone 80 mg Chewable 80 mg 1 tab(s), Chewed, TID Lab Results 06/19 05:51 WBC: 7.3 Hgb: 14.2 Hct: 42.1 Platelet: 99 L Neutrophil %: 62.0 Glucose Level: 125 H Sodium Level: 136 Potassium Level: 3.4 L BUN: 23.0 H Creatinine Lvl (s): 0.94 06/18 07:20 WBC: 7.7 Hgb: 14.0 Hct: 41.1 Platelet: 107 L Neutrophil %: 75.3 H 06/18 06:03 Glucose Level: 120 H Sodium Level: 139 Potassium Level: 3.6 BUN: 20.0 Creatinine Lvl (s): 1.00 EKG No qualifying data available. Assessment/Plan 1. Acute hypoxic respiratory failure 2. Acute on chronic HFpEF exacerbation 3. Suspected JOCELIN 4. Bradycardia 5. Hypothyroidism 6. COPD without exacerbation 7. Other history of HTN, chronic back pain, recurrent UTIs, depression, morbid obesity, GERD Plan O2 has remained stable on 2L nasal cannula, planning for patient to be discharged with home oxygen.She declined wanting to wear a PCP hs. Volume status returned to baseline, continue home Lasix BID, continue KCL supplements BID. Echocardiogram is pending for today. Continue breathing treatments, COPD is not acutely exacerbated. No wheezing on exam. Continue Synthroid, TSH reviewed And is elevated at 31.216. Patient admits she is noncompliant withtaking this. Recommend repeat thyroid studies in 6 weeks. Cardiology felt bradycardia was likely secondary to missed Synthroid doses, no further work-up is planned. Bradycardia resolved. Continue remainder of home medications for chronic conditions. Pain regimen added PT/OT recommending SNF. Patient now agreeable, referral sent to [facility]. Lovenox for DVT prophylaxis Anticipate discharge when SNF bed available/Echo completed Ok to transfer to Plan discussed with patient. Updated daughter Ambika over phone Case d/w Dr. Gonzalez Digitally Signed by BAYLEE STONE on 06/20/2023 12:15 PM [id number] Date of Service 06/19/23 Chief Complaint respiratory failure, HF exacerbation Subjective 82-year-old female with past medical history of hypertension, hypothyroidism, GERD, COPD, chronic back pain, chronic diastolic heart failure, recurrent UTIs, osteoporosis, depression, morbid obesity and medical noncompliance. Patient presented to [facility] on 06/18/2023 with worsening shortness of breath and low heart rates. Patient states she noticed her heart rate would drop into the 40s at night. Lab work on admission showed a platelet count of 139, calcium of 11.1, otherwise unremarkable. Troponin was negative x 3. proBNP was 123. TSH was 31.216, patient admits she is noncompliant with taking her Synthroid dose. UA was not concerning for infection. D-dimer was less than 200. ABG showed a pH of 7.434, pCO2 of 51.5. Chest x-ray completed showed no acute process. Patient was afebrile, blood pressure 133/70, 92% on room air. Patient did drop to 87% on room air requiring 2 L nasal cannula. Patient was started on IV Lasix for suspected heart failure exacerbation. Cardiology is consulted. An echocardiogram is pending. PT/OT evaluations pending. Patient seen today. She states she is urinating often due to Lasix. Patient denied CP. No worseningshortness of breath today. She states she is not moving much around her room. No abdominal pain, N/V. She states she has chronic back pain. She also states she is passing a lot of gas but no BM. Objective Vitals and Measurements T: 36.8 C (Oral) TMIN: 36.1 C (Oral) TMAX: 37.9 C (Oral) HR: 77(Monitored) HR: 84 RR: 18 BP: 128/70 SpO2: 95% HT: 154 cm WT: 104.5 kg BMI: 44.06 Intake and Output 7AM Yesterday to 7AM Today Intake and Output (Last 24 hours) Intake Oral Intake 660.00 Output Urine Voided 0.00 Urinary Catheter Output: 650.00 Stool Count 0.00 Total Summary Total Intake 660.00 Total Output 650.00 Fluid Balance 10.00 Physical Exam Physical Exam General: No acute distress. Alert and Appropriate Skin: No rash. Warm, Dry HEENT: Head normocephalic and atraumatic. No lesions. Pupils equal in size. Extraocular movements within normal limits. Nose: No septal deviation. Mouth: Oropharynx mucosa is without lesion. Neck: Supple. No lymphadenopathy, thyromegaly noted. Lungs: Bilaterally clear/diminished breath sounds with no crepitation or wheeze. Unlabored on 2L Cardiovascular: Heart is regular rhythm, S1S2, No extra-audible heart tones Abdomen: Abdomen is soft, nontender. Bowel sounds positive all four quadrants. Extremities: No clubbing, cyanosis. +1 BLE edema. Peripheral and distal pulses palpable. No calf tenderness. Adequate peripheral circulation. Neurological: The patient is awake, oriented to time, people and place. Following simple commands, moving all extremities. Weight Dosing Weight: 104.5 kg (06/18/23) Dosing Weight: 104.5 kg (06/18/23) Medications Medications (20) Active Scheduled: (15) albuterol - ipratropium 2.5 mg-0.5 mg/3 mL Inhal Lydia UD 3 mL, Inhalation, BIDRT amLODIPine 5 mg tablet 5 mg 1 tab(s), Oral, qDay aspirin 325 mg EC 325 mg 1 tab(s), Oral, qDay baclofen 10 mg tablet 10 mg 1 tab(s), Oral, TID budesonide 0.25 mg/2 mL Susp UD 0.25 mg 2 mL, Inhalation, BIDRT cholecalciferol 25 mcg tablet (Vit D3 1000 units) 25 mcg 1 tab(s), Oral, qDay enoxaparin 40 mg/ 0.4mL syringe 40 mg 0.4 mL, Subcutaneous, qDay furosemide 40 mg tablet 40 mg 1 tab(s), Oral, BID levothyroxine 175 mcg tablet 175 mcg 1 tab(s), Oral, qDay magnesium oxide 400 mg Tablet 200 mg 0.5 tab(s), Oral, BID metoclopramide 5 mg tablet 5 mg 1 tab(s), Oral, TID mirabegron 25 mg ER tablet 25 mg 1 tab(s), Oral, BID [id number]-5-[id number] ethyl esters 1000 mg capsule 1,000 mg 1 cap(s), Oral, BID pantoprazole 20 mg EC tablet 20 mg 1 tab(s), Oral, BID potassium chloride 10 mEq ER capsule 30 mEq 3 cap(s), Oral, BIDM Continuous: (0) PRN: (5) acetaminophen 325 mg Tablet 650 mg 2 tab(s), Oral, q6h albuterol 0.083% Soln UD (2.5mg/3 mL) 2.5 mg 3 mL, Inhalation, QIDRT hydroxyzine pamoate 50 mg capsule 50 mg 1 cap(s), Oral, QID ondansetron 2 mg/ 1 mL 2 mL INJ 4 mg 2 mL, IV Push, q4h simethicone 80 mg Chewable 80 mg 1 tab(s), Chewed, TID Lab Results 06/18 07:20 WBC: 7.7 Hgb: 14.0 Hct: 41.1 Platelet: 107 L Neutrophil %: 75.3 H 06/18 06:03 Glucose Level: 120 H Sodium Level: 139 Potassium Level: 3.6 BUN: 20.0 Creatinine Lvl (s): 1.00 06/17 09:12 WBC: 6.0 Hgb: 15.1 Hct: 44.3 Platelet: 139 L Neutrophil %: 61.3 Glucose Level: 94 Sodium Level: 136 Potassium Level: 3.5 BUN: 17.0 Creatinine Lvl (s): 1.15 EKG No qualifying data available. Assessment/Plan 1. Acute hypoxic respiratory failure 2. Acute on chronic HFpEF exacerbation 3. Suspected JOCELIN 4. COPD without exacerbation 5. Hypothyroidism 6. Other history of HTN, chronic back pain, recurrent UTIs, depression, morbid obesity, GERD Plan Patient found to be 87% on room air requiring 2 L nasal cannula. Patient does qualify for home oxygen continuously. Suspect she likely has JOCELIN, will have patient follow up with Pulmonary for sleep study in future. Patient educated to wear O2 continuously at home including hs. Continue IV Lasix twice daily. Echocardiogram is pending. Appreciate cardiology input. Continue breathing treatments, COPD is not acutely exacerbated. No wheezing on exam. Continue Synthroid, TSH reviewed And is elevated at 31.216. Patient admits she is noncompliant withtaking this. Recommend repeat thyroid studies in 6 weeks. Continue remainder of home medications for chronic conditions. Benefiber resumed. PT/OT evaluations pending Will add Lovenox for DVT prophylaxis Anticipate discharge within next 24-48 hours Plan discussed with patient. left for daughter Ambika over phone Case d/w Dr. Gonzalez Digitally Signed by BAYLEE STONE on 06/19/2023 01:22 PM [id number] Cardiology Consult note Date of Service 06/19/2023 Reason for Consultation Bradycardia Referring Physician EUNICE Nolan History of Present Illness CVC : Dr. Negrete 82-year-old female with history of diastolic heart failure (EF 60-65%, grade 1 diastolic dysfunction, in June 2022), chronic left bundle branch block, severe claustrophobia (unable to undergo stress, CT coronary angiography, and CT calcium score), hypertension, obesity, hypothyroidism, presented with shortness of breath and weakness and found to be bradycardic at home. Rate was 48/min at that time. Cardiology was consulted for bradycardia. She mention progressive worsening of fatigue over the past few months. She also mention occasional lightheadedness and dizziness. Patient denied chest pain or discomfort with exertion, palpitation, orthopnea and PND. No weight changes or lower extremity swelling. Holter monitor December 2021 No significant bradycardia or tachyarrhythmia. Overall PVC burden 2% Sinus rhythm with IVCD, first-degree AV block Review of Systems Constitutional: denies Fevers and chills , no loss of appetite, denies fatigue or weight change Eyes: Denies double vision/blurring of vision/flashes or floaters Ears, Nose, Mouth & Throat: Denies any tinnitus/hearing loss/sinus congestion/nasal discharge/sore throat Gastrointestinal: Denies any abdominal pain/nausea/vomiting/diarrhea/hematochezia/hematemesis/melena Genitourinary: Denies any dysuria/hematuria Musculoskeletal: denies joint pain or joint swelling or deformities Skin: No ulcers or rash Neurological: denies Weakness or numbness of extremities/facial droop/loss of balance Endocrine: Denies any heat or cold intolerance/polyuria/polydipsia/polyphagia Hematologic/Lymphatic: denies lymphadenopathy Allergic/Immunologic: Denies any seasonal allergy/sneezing/tearing from the eyes Physical Exam Vitals and Measurements T: 36.9 C (Oral) TMIN: 36.1 C (Oral) TMAX: 37.9 C (Oral) HR: 77(Monitored) HR: 84 RR: 16 BP: 131/79SpO2: 94% HT: 154 cm WT: 104.5 kg BMI: 44.06 Weight Dosing Weight: 104.5 kg (06/18/23) Dosing Weight: 104.5 kg (06/18/23) General Appearance: Patient comfortably lying on bed, not in acute distress Head: Normocephalic, atraumatic EENT: PERRLA, Neck: Supple, no JVD, no mass Cardiac: s1s2,RRR, no murmurs or rubs or gallops Lungs: Clear to auscultation bilaterally, no wheeze or rhonchi or crackles Abdomen: Soft , Nontender, no organomegaly, bowel sounds heard Musculoskeletal: Full ROM , no gross deformities Extremities: No rash or ulcers or pedal edema Neurological: Alert, oriented x 3, grossly no focal neurological deficits Skin: No rash or ulcers Lab Results 06/18 07:20 WBC: 7.7 Hgb: 14.0 Hct: 41.1 Platelet: 107 L Neutrophil %: 75.3 H 06/18 06:03 Glucose Level: 120 H Sodium Level: 139 Potassium Level: 3.6 BUN: 20.0 Creatinine Lvl (s): 1.00 06/17 09:12 WBC: 6.0 Hgb: 15.1 Hct: 44.3 Platelet: 139 L Neutrophil %: 61.3 Glucose Level: 94 Sodium Level: 136 Potassium Level: 3.5 BUN: 17.0 Creatinine Lvl (s): 1.15 Assessment/Plan Transient episode of sinus bradycardia Heart failure with preserved ejection fraction (EF 60 to 65%, grade 1 diastolic dysfunction in June 2022) no acute exacerbation Left bundle branch block Uncontrolled hypothyroidism Obesity Hypertension Severe claustrophobia Patient is hemodynamically stable, in sinus rhythm at regular heart rates after admission. TSH is found to be elevated at 31.2. Left bundle branch block is chronic. Patient's symptoms are likely secondary to hypothyroidism. No intervention is warranted from cardiology standpoint. Hold off beta-chelita (labetolol). 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 Thank you for the consult and cardiology will sign off. Problem List/Past Medical History Ongoing Abnormal EKG BMI 40.0-44.9, adult Bronchitis Cerumen impaction Chronic back pain greater than 3 months duration Chronic cellulitis Chronic depression COPD (chronic obstructive pulmonary disease) Diarrhea Diastolic heart failure Dizziness PIZARRO (dyspnea on exertion) Does mobilize using cane Dyspnea Edema Exertional shortness of breath Facial skin lesion Frequency-urgency syndrome Frequent UTI GERD (gastroesophageal reflux disease) HTN (hypertension) Hypokalemia Hypothyroidism Leg swelling Lumbar radiculopathy Medicare annual wellness visit, subsequent Medication management Morbid obesity Nocturia Osteoporosis Osteoporosis monitoring declined Palpitations Pulmonary hypertension Rectal bleeding Sciatica Snoring Spondylolisthesis of lumbar region Urinary incontinence Historical Acute bronchitis Acute hypoxemic respiratory failure Chronic bronchitis COPD with acute exacerbation Influenza A Recurrent urinary tract infection Skin ulceration Streptococcal pneumonia Procedure/Surgical History Echocardiogram: 07/04/22 Echocardiogram: 09/11/21 Esophagogastroduodenoscopy and dilation of esophageal stricture: 01/21/18 Dental: 2016 Total knee replacement L: 2013 Carpal tunnel release: 2000 Carpal tunnel release: 1989 Tonsils and adenoids: 1945 Arthroplasty of shoulder Arthroscopy of knee History of lumbar fusion H/O: hysterectomy History of total replacement of right hip joint Cholecystectomy CE - Cataract extraction Spinal fusion Neuroplasty and/or transposition; median nerve at carpal tunnel Medications Inpatient acetaminophen, 650 mg= 2 tab(s), Oral, q6h, PRN albuterol, 2.5 mg= 3 mL, Inhalation, QIDRT, PRN amLODIPine, 5 mg= 1 tab(s), Oral, qDay aspirin 325 mg oral delayed release tablet, 325 mg= 1 tab(s), Oral, qDay baclofen, 10 mg= 1 tab(s), Oral, TID DuoNeb 0.5 mg - 2.5 mg/3 mL inhalation soln, 3 mL, Inhalation, QIDRT Lasix, 40 mg= 1 tab(s), Oral, BID levothyroxine, 175 mcg= 1 tab(s), Oral, qDay magnesium oxide, 200 mg= 0.5 tab(s), Oral, BID metoclopramide, 5 mg= 1 tab(s), Oral, TID Mylicon, 80 mg= 1 tab(s), Chewed, TID, PRN Myrbetriq, 25 mg= 1 tab(s), Oral, BID omega-3 fish oil 1000 mg oral capsule, 1000 mg= 1 cap(s), Oral, BID ondansetron, 4 mg= 2 mL, IV Push, q4h, PRN potassium chloride 10 mEq oral capsule, extended release, 30 mEq= 3 cap(s), Oral, BIDM Protonix, 20 mg= 1 tab(s), Oral, BID Pulmicort Respules 0.25 mg/2 mL inhalation suspension, 0.25 mg= 2 mL, Inhalation, BIDRT Vistaril, 50 mg= 1 cap(s), Oral, QID, PRN Vitamin D3 25 mcg (1000 intl units) oral tablet, 25 mcg= 1 tab(s), Oral, qDay Home Albuterol (Eqv-Proventil HFA) 90 mcg/inh inhalation aerosol, 2 inh, Inhalation, QID, PRN albuterol-ipratropium 2.5 mg-0.5 mg/3 mL inhalation solution, 3 mL, Inhalation, QID, 3 refills amLODIPine 5 mg oral tablet, 5 mg= 1 tab(s), Oral, qDay, 3 refills aspirin 325 mg oral delayed release tablet, 325 mg= 1 tab(s), Oral, qDay baclofen 10 mg oral tablet, 1 tab(s), Oral, TID, 2 refills Benefiber oral powder for reconstitution, 5 mL, Oral, BID, PRN, Still taking, not as prescribed: takes every day flax seed oil 1000 mg oral capsule, 1 cap(s), Oral, qDay Flovent HFA 44 mcg/inh inhalation aerosol, 2 inh, Inhalation, BID hydroCHLOROthiazide 25 mg oral tablet, 1 tab(s), Oral, qDay, Still taking, not as prescribed: patient states that she takes this 2 times a day labetalol 200 mg oral tablet, 1 tab(s), Oral, qDay, Patient Unsure Lasix 40 mg oral tablet, 40 mg= 1 tab(s), Oral, BID, 4 refills levothyroxine 175 mcg (0.175 mg) oral tablet, 1 tab(s), Oral, qDay Magnesium 250 mg tablet, 250 mg= 1 tab(s), Oral, BID metoclopramide 5 mg oral tablet, 1 tab(s), Oral, TID Myrbetriq 25 mg oral tablet, extended release, 25 mg, Oral, BID, 3 refills NexIUM 20 mg oral delayed release capsule, 20 mg= 1 cap(s), Oral, qDay omega-3 fish oil 1000 mg oral capsule, 1000 mg= 1 cap(s), Oral, BID omeprazole 20 mg oral delayed release capsule, 1 cap(s), Oral, qHS, 3 refills potassium chloride 10 mEq oral capsule, extended release, 30 mEq= 3 cap(s), Oral, BID Prevagen tablet, 1 tab(s), Oral, Daily Probiotic, 1 cap(s), Oral, qDay Qvar Redihaler 40 mcg/inh inhalation aerosol, 1 puff(s), Inhalation, BID, 4 refills Vistaril 50 mg oral capsule, 50 mg= 1 cap(s), Oral, QID, PRN, 5 refills Vitamin C 500 mg oral tablet, 500 mg= 1 tab(s), Oral, qDay Vitamin D3 25 mcg (1000 intl units) oral capsule, 25 mcg= 1 cap(s), Oral, qDay zinc (as acetate) 25 mg oral capsule, 25 mg= 1 cap(s), Oral, TID Allergies Ambien Aspartame (non-codified) Ativan Nembutal Percocet 7.5/325 Tape, plastic (Rash) codeine morphine Social History Alcohol - Denies Alcohol Use, 01/21/2018 Use: Never., 08/28/2020 Substance Abuse - Denies Substance Abuse, 01/21/2018 Use: Never., 04/08/2022 Tobacco - Denies Tobacco Use, 01/21/2018 Tobacco Use: Former smoker- quit 1960. Type: Cigarettes., 08/13/2018 Family History Bladder cancer: Negative: Mother, Father, Sister, Brother, Daughter, Son and Grandparent. Blood clot: Sister. Heart attack: Father. Heart disease: Father. High blood pressure: Mother and Father. Hypercholesterolemia: Mother and Father. Hypertension: Mother. Kidney stone: Negative: Mother, Father, Sister, Brother, Daughter, Son and Grandparent. Renal cancer: Negative: Mother, Father, Sister, Brother, Daughter, Son and Grandparent. Stroke: Mother. Immunizations pneumococcal 13-valent conjugate vaccine: 0.5 mL (12/07/18) pneumococcal 23-valent vaccine(Pneumovax: 0 unknown unit (11/25/05) SARS-CoV-2 (COVID-19) mRNA-1273 vaccine: 0.25 unknown unit (02/28/21) SARS-CoV-2 (COVID-19) mRNA-1273 vaccine: 0 unknown unit (07/04/20) SARS-CoV-2 (COVID-19) mRNA-1273 vaccine: 0 unknown unit (06/01/20) zoster vaccine, inactivated: 0.5 unknown unit (01/25/21) Digitally Signed by LAURA HENRIQUEZ MD on 06/19/2023 02:57 PM [id number] Note Date of Service 06/19/23 Chief Complaint respiratory failure, HF exacerbation Subjective 82-year-old female with past medical history of hypertension, hypothyroidism, GERD, COPD, chronic back pain, chronic diastolic heart failure, recurrent UTIs, osteoporosis, depression, morbid obesity and medical noncompliance. [facility] with worsening shortness of breath and low heart rates. Patient states she noticed her heart rate would drop into the 40sat night. Lab work on admission showed a platelet count of 139, calcium of 11.1, otherwise unremarkable. Troponin was negative x 3. proBNP was 123. TSH was 31.216, patient admits she is noncompliant with taking her Synthroid dose. UA was not concerning for infection. D-dimer was less than 200. ABG showed a pH of 7.434, pCO2 of 51.5. Chest x-ray completed showed no acute process. Patient was afebrile, blood pressure 133/70, 92% on room air. Patient did drop to 87% on room air requiring 2 L nasalcannula. Patient was started on IV Lasix for suspected heart failure exacerbation. Cardiology is consulted. An echocardiogram is pending. PT/OT evaluations pending. Patient seen today. She states she is urinating often due to Lasix. Patient denied CP. No worseningshortness of breath today. She states she is not moving much around her room. No abdominal pain, N/V. She states she has chronic back pain. She also states she is passing a lot of gas but no BM. Objective Vitals and Measurements T: 36.8 C (Oral) TMIN: 36.1 C (Oral) TMAX: 37.9 C (Oral) HR: 77(Monitored) HR: 84 RR: 18 BP: 128/70SpO2: 95% HT: 154 cm WT: 104.5 kg BMI: 44.06 Intake and Output 7AM Yesterday to 7AM Today Intake and Output (Last 24 hours) Intake Oral Intake 660.00 Output Urine Voided 0.00 Urinary Catheter Output: 650.00 Stool Count 0.00 Total Summary Total Intake 660.00 Total Output 650.00 Fluid Balance 10.00 Physical Exam Physical Exam General: No acute distress. Alert and Appropriate Skin: No rash. Warm, Dry HEENT: Head normocephalic and atraumatic. No lesions. Pupils equal in size. Extraocular movements within normal limits. Nose: No septal deviation. Mouth: Oropharynx mucosa is without lesion. Neck: Supple. No lymphadenopathy, thyromegaly noted. Lungs: Bilaterally clear/diminished breath sounds with no crepitation or wheeze. Unlabored on 2L Cardiovascular: Heart is regular rhythm, S1S2, No extra-audible heart tones Abdomen: Abdomen is soft, nontender. Bowel sounds positive all four quadrants. Extremities: No clubbing, cyanosis. +1 BLE edema. Peripheral and distal pulses palpable. No calf tenderness. Adequate peripheral circulation. Neurological: The patient is awake, oriented to time, people and place. Following simple commands, moving all extremities. Weight Dosing Weight: 104.5 kg (06/18/23) Dosing Weight: 104.5 kg (06/18/23) Medications Medications (20) Active Scheduled: (15) albuterol - ipratropium 2.5 mg-0.5 mg/3 mL Inhal Lydia UD 3 mL, Inhalation, BIDRT amLODIPine 5 mg tablet 5 mg 1 tab(s), Oral, qDay aspirin 325 mg EC 325 mg 1 tab(s), Oral, qDay baclofen 10 mg tablet 10 mg 1 tab(s), Oral, TID budesonide 0.25 mg/2 mL Susp UD 0.25 mg 2 mL, Inhalation, BIDRT cholecalciferol 25 mcg tablet (Vit D3 1000 units) 25 mcg 1 tab(s), Oral, qDay enoxaparin 40 mg/ 0.4mL syringe 40 mg 0.4 mL, Subcutaneous, qDay furosemide 40 mg tablet 40 mg 1 tab(s), Oral, BID levothyroxine 175 mcg tablet 175 mcg 1 tab(s), Oral, qDay magnesium oxide 400 mg Tablet 200 mg 0.5 tab(s), Oral, BID metoclopramide 5 mg tablet 5 mg 1 tab(s), Oral, TID mirabegron 25 mg ER tablet 25 mg 1 tab(s), Oral, BID [id number]-8-mlde ethyl esters 1000 mg capsule 1,000 mg 1 cap(s), Oral, BID pantoprazole 20 mg EC tablet 20 mg 1 tab(s), Oral, BID potassium chloride 10 mEq ER capsule 30 mEq 3 cap(s), Oral, BIDM Continuous: (0) PRN: (5) acetaminophen 325 mg Tablet 650 mg 2 tab(s), Oral, q6h albuterol 0.083% Soln UD (2.5mg/3 mL) 2.5 mg 3 mL, Inhalation, QIDRT hydroxyzine pamoate 50 mg capsule 50 mg 1 cap(s), Oral, QID ondansetron 2 mg/ 1 mL 2 mL INJ 4 mg 2 mL, IV Push, q4h simethicone 80 mg Chewable 80 mg 1 tab(s), Chewed, TID Lab Results 06/18 07:20 WBC: 7.7 Hgb: 14.0 Hct: 41.1 Platelet: 107 L Neutrophil %: 75.3 H 06/18 06:03 Glucose Level: 120 H Sodium Level: 139 Potassium Level: 3.6 BUN: 20.0 Creatinine Lvl (s): 1.00 06/17 09:12 WBC: 6.0 Hgb: 15.1 Hct: 44.3 Platelet: 139 L Neutrophil %: 61.3 Glucose Level: 94 Sodium Level: 136 Potassium Level: 3.5 BUN: 17.0 Creatinine Lvl (s): 1.15 EKG No qualifying data available. Assessment/Plan 1. Acute hypoxic respiratory failure 2. Acute on chronic HFpEF exacerbation 3. Suspected JOCELIN 4. COPD without exacerbation 5. Hypothyroidism 6. Other history of HTN, chronic back pain, recurrent UTIs, depression, morbid obesity, GERD Plan Patient found to be 87% on room air requiring 2 L nasal cannula. Patient does qualify for home oxygen continuously. Suspect she likely has JOCELIN, will have patient follow up with Pulmonary for sleep study in future. Patient educated to wear O2 continuously at home including hs. Continue IV Lasix twice daily. Echocardiogram is pending. Appreciate cardiology input. Continue breathing treatments, COPD is not acutely exacerbated. No wheezing on exam. Continue Synthroid, TSH reviewed And is elevated at 31.216. Patient admits she is noncompliant withtaking this. Recommend repeat thyroid studies in 6 weeks. Continue remainder of home medications for chronic conditions. Benefiber resumed. PT/OT evaluations pending Will add Lovenox for DVT prophylaxis Anticipate discharge within next 24-48 hours Plan discussed with patient. VM left for daughter Ambika over phone Case d/w Dr. Gonzalez Digitally Signed by BAYLEE STONE on 06/19/2023 01:22 PM [id number] Note Date of Service 06/19/23 Chief Complaint respiratory failure, HF exacerbation Subjective 82-year-old female with past medical history of hypertension, hypothyroidism, GERD, COPD, chronic back pain, chronic diastolic heart failure, recurrent UTIs, osteoporosis, depression, morbid obesity and medical noncompliance. Patient [facility] 06/18/[facility]23 with worsening shortness of breath and low heart rates. Patient states she noticed her heart rate would drop into the 40s at night. Lab work on admission showed a platelet count of 139, calcium of 11.1, otherwise unremarkable. Troponin was negative x 3. proBNP was 123. TSH was 31.216, patient admits she is noncompliant with taking her Synthroid dose. UA was not concerning for infection. D-dimer was less than 200. ABG showed a pH of 7.434, pCO2 of 51.5. Chest x-ray completed showed no acute process. Patient was afebrile, blood pressure 133/70, 92% on room air. Patient did drop to 87% on room air requiring 2 L nasal cannula. Patient was started on IV Lasix for suspected heart failure exacerbation. Cardiology is consulted. An echocardiogram is pending. PT/OT evaluations pending. Patient seen today. She states she is urinating often due to Lasix. Patient denied CP. No worseningshortness of breath today. She states she is not moving much around her room. No abdominal pain, N/V. She states she has chronic back pain. She also states she is passing a lot of gas but no BM. Objective Vitals and Measurements T: 36.8 C (Oral) TMIN: 36.1 C (Oral) TMAX: 37.9 C (Oral) HR: 77(Monitored) HR: 84 RR: 18 BP: 128/70SpO2: 95% HT: 154 cm WT: 104.5 kg BMI: 44.06 Intake and Output 7AM Yesterday to 7AM Today Intake and Output (Last 24 hours) Intake Oral Intake 660.00 Output Urine Voided 0.00 Urinary Catheter Output: 650.00 Stool Count 0.00 Total Summary Total Intake 660.00 Total Output 650.00 Fluid Balance 10.00 Physical Exam Physical Exam General: No acute distress. Alert and Appropriate Skin: No rash. Warm, Dry HEENT: Head normocephalic and atraumatic. No lesions. Pupils equal in size. Extraocular movements within normal limits. Nose: No septal deviation. Mouth: Oropharynx mucosa is without lesion. Neck: Supple. No lymphadenopathy, thyromegaly noted. Lungs: Bilaterally clear/diminished breath sounds with no crepitation or wheeze. Unlabored on 2L Cardiovascular: Heart is regular rhythm, S1S2, No extra-audible heart tones Abdomen: Abdomen is soft, nontender. Bowel sounds positive all four quadrants. Extremities: No clubbing, cyanosis. +1 BLE edema. Peripheral and distal pulses palpable. No calf tenderness. Adequate peripheral circulation. Neurological: The patient is awake, oriented to time, people and place. Following simple commands, moving all extremities. Weight Dosing Weight: 104.5 kg (06/18/23) Dosing Weight: 104.5 kg (06/18/23) Medications Medications (20) Active Scheduled: (15) albuterol - ipratropium 2.5 mg-0.5 mg/3 mL Inhal Lydia UD 3 mL, Inhalation, BIDRT amLODIPine 5 mg tablet 5 mg 1 tab(s), Oral, qDay aspirin 325 mg EC 325 mg 1 tab(s), Oral, qDay baclofen 10 mg tablet 10 mg 1 tab(s), Oral, TID budesonide 0.25 mg/2 mL Susp UD 0.25 mg 2 mL, Inhalation, BIDRT cholecalciferol 25 mcg tablet (Vit D3 1000 units) 25 mcg 1 tab(s), Oral, qDay enoxaparin 40 mg/ 0.4mL syringe 40 mg 0.4 mL, Subcutaneous, qDay furosemide 40 mg tablet 40 mg 1 tab(s), Oral, BID levothyroxine 175 mcg tablet 175 mcg 1 tab(s), Oral, qDay magnesium oxide 400 mg Tablet 200 mg 0.5 tab(s), Oral, BID metoclopramide 5 mg tablet 5 mg 1 tab(s), Oral, TID mirabegron 25 mg ER tablet 25 mg 1 tab(s), Oral, BID rlwqc-1-[id number] ethyl esters 1000 mg capsule 1,000 mg 1 cap(s), Oral, BID pantoprazole 20 mg EC tablet 20 mg 1 tab(s), Oral, BID potassium chloride 10 mEq ER capsule 30 mEq 3 cap(s), Oral, BIDM Continuous: (0) PRN: (5) acetaminophen 325 mg Tablet 650 mg 2 tab(s), Oral, q6h albuterol 0.083% Soln UD (2.5mg/3 mL) 2.5 mg 3 mL, Inhalation, QIDRT hydroxyzine pamoate 50 mg capsule 50 mg 1 cap(s), Oral, QID ondansetron 2 mg/ 1 mL 2 mL INJ 4 mg 2 mL, IV Push, q4h simethicone 80 mg Chewable 80 mg 1 tab(s), Chewed, TID Lab Results 06/18 07:20 WBC: 7.7 Hgb: 14.0 Hct: 41.1 Platelet: 107 L Neutrophil %: 75.3 H 06/18 06:03 Glucose Level: 120 H Sodium Level: 139 Potassium Level: 3.6 BUN: 20.0 Creatinine Lvl (s): 1.00 06/17 09:12 WBC: 6.0 Hgb: 15.1 Hct: 44.3 Platelet: 139 L Neutrophil %: 61.3 Glucose Level: 94 Sodium Level: 136 Potassium Level: 3.5 BUN: 17.0 Creatinine Lvl (s): 1.15 EKG No qualifying data available. Assessment/Plan 1. Acute hypoxic respiratory failure 2. Acute on chronic HFpEF exacerbation 3. Suspected JOCELIN 4. COPD without exacerbation 5. Hypothyroidism 6. Other history of HTN, chronic back pain, recurrent UTIs, depression, morbid obesity, GERD Plan Patient found to be 87% on room air requiring 2 L nasal cannula. Patient does qualify for home oxygen continuously. Suspect she likely has JOCELIN, will have patient follow up with Pulmonary for sleep study in future. Patient educated to wear O2 continuously at home including hs. Continue IV Lasix twice daily. Echocardiogram is pending. Appreciate cardiology input. Continue breathing treatments, COPD is not acutely exacerbated. No wheezing on exam. Continue Synthroid, TSH reviewed And is elevated at 31.216. Patient admits she is noncompliant withtaking this. Recommend repeat thyroid studies in 6 weeks. Continue remainder of home medications for chronic conditions. Benefiber resumed. PT/OT evaluations pending Will add Lovenox for DVT prophylaxis Anticipate discharge within next 24-48 hours Plan discussed with patient. VM left for daughter Ambika over phone Case d/w Dr. Gonzalez Digitally Signed by BAYLEE STONE on 06/19/2023 01:22 PM [id number] Cardiology Consult note Date of Service 06/19/2023 Reason for Consultation Bradycardia Referring Physician EUNICE Nolan History of Present Illness CVC : Dr. Negrete 82-year-old female with history of diastolic heart failure (EF 60-65%, grade 1 diastolic dysfunction, in June 2022), chronic left bundle branch block, severe claustrophobia (unable to undergo stress, CT coronary angiography, and CT calcium score), hypertension, obesity, hypothyroidism, presented with shortness of breath and weakness and found to be bradycardic at home. Rate was 48/min at that time. Cardiology was consulted for bradycardia. She mention progressive worsening of fatigue over the past few months. She also mention occasional lightheadedness and dizziness. Patient denied chest pain or discomfort with exertion, palpitation, orthopnea and PND. No weight changes or lower extremity swelling. Holter monitor December 2021 No significant bradycardia or tachyarrhythmia. Overall PVC burden 2% Sinus rhythm with IVCD, first-degree AV block Review of Systems Constitutional: denies Fevers and chills , no loss of appetite, denies fatigue or weight change Eyes: Denies double vision/blurring of vision/flashes or floaters Ears, Nose, Mouth & Throat: Denies any tinnitus/hearing loss/sinus congestion/nasal discharge/sore throat Gastrointestinal: Denies any abdominal pain/nausea/vomiting/diarrhea/hematochezia/hematemesis/melena Genitourinary: Denies any dysuria/hematuria Musculoskeletal: denies joint pain or joint swelling or deformities Skin: No ulcers or rash Neurological: denies Weakness or numbness of extremities/facial droop/loss of balance Endocrine: Denies any heat or cold intolerance/polyuria/polydipsia/polyphagia Hematologic/Lymphatic: denies lymphadenopathy Allergic/Immunologic: Denies any seasonal allergy/sneezing/tearing from the eyes Physical Exam Vitals and Measurements T: 36.9 C (Oral) TMIN: 36.1 C (Oral) TMAX: 37.9 C (Oral) HR: 77(Monitored) HR: 84 RR: 16 BP: 131/79SpO2: 94% HT: 154 cm WT: 104.5 kg BMI: 44.06 Weight Dosing Weight: 104.5 kg (06/18/23) Dosing Weight: 104.5 kg (06/18/23) General Appearance: Patient comfortably lying on bed, not in acute distress Head: Normocephalic, atraumatic EENT: PERRLA, Neck: Supple, no JVD, no mass Cardiac: s1s2,RRR, no murmurs or rubs or gallops Lungs: Clear to auscultation bilaterally, no wheeze or rhonchi or crackles Abdomen: Soft , Nontender, no organomegaly, bowel sounds heard Musculoskeletal: Full ROM , no gross deformities Extremities: No rash or ulcers or pedal edema Neurological: Alert, oriented x 3, grossly no focal neurological deficits Skin: No rash or ulcers Lab Results 06/18 07:20 WBC: 7.7 Hgb: 14.0 Hct: 41.1 Platelet: 107 L Neutrophil %: 75.3 H 06/18 06:03 Glucose Level: 120 H Sodium Level: 139 Potassium Level: 3.6 BUN: 20.0 Creatinine Lvl (s): 1.00 06/17 09:12 WBC: 6.0 Hgb: 15.1 Hct: 44.3 Platelet: 139 L Neutrophil %: 61.3 Glucose Level: 94 Sodium Level: 136 Potassium Level: 3.5 BUN: 17.0 Creatinine Lvl (s): 1.15 Assessment/Plan Transient episode of sinus bradycardia Heart failure with preserved ejection fraction (EF 60 to 65%, grade 1 diastolic dysfunction in June 2022) no acute exacerbation Left bundle branch block Uncontrolled hypothyroidism Obesity Hypertension Severe claustrophobia Patient is hemodynamically stable, in sinus rhythm at regular heart rates after admission. TSH is found to be elevated at 31.2. Left bundle branch block is chronic. Patient's symptoms are likely secondary to hypothyroidism. No intervention is warranted from cardiology standpoint. Hold off beta-chelita (labetolol). 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 Thank you for the consult and cardiology will sign off. Problem List/Past Medical History Ongoing Abnormal EKG BMI 40.0-44.9, adult Bronchitis Cerumen impaction Chronic back pain greater than 3 months duration Chronic cellulitis Chronic depression COPD (chronic obstructive pulmonary disease) Diarrhea Diastolic heart failure Dizziness PIZARRO (dyspnea on exertion) Does mobilize using cane Dyspnea Edema Exertional shortness of breath Facial skin lesion Frequency-urgency syndrome Frequent UTI GERD (gastroesophageal reflux disease) HTN (hypertension) Hypokalemia Hypothyroidism Leg swelling Lumbar radiculopathy Medicare annual wellness visit, subsequent Medication management Morbid obesity Nocturia Osteoporosis Osteoporosis monitoring declined Palpitations Pulmonary hypertension Rectal bleeding Sciatica Snoring Spondylolisthesis of lumbar region Urinary incontinence Historical Acute bronchitis Acute hypoxemic respiratory failure Chronic bronchitis COPD with acute exacerbation Influenza A Recurrent urinary tract infection Skin ulceration Streptococcal pneumonia Procedure/Surgical History Echocardiogram: 07/04/22 Echocardiogram: 09/11/21 Esophagogastroduodenoscopy and dilation of esophageal stricture: 01/21/18 Dental: 2016 Total knee replacement L: 2013 Carpal tunnel release: 2000 Carpal tunnel release: 1989 Tonsils and adenoids: 1945 Arthroplasty of shoulder Arthroscopy of knee History of lumbar fusion H/O: hysterectomy History of total replacement of right hip joint Cholecystectomy CE - Cataract extraction Spinal fusion Neuroplasty and/or transposition; median nerve at carpal tunnel Medications Inpatient acetaminophen, 650 mg= 2 tab(s), Oral, q6h, PRN albuterol, 2.5 mg= 3 mL, Inhalation, QIDRT, PRN amLODIPine, 5 mg= 1 tab(s), Oral, qDay aspirin 325 mg oral delayed release tablet, 325 mg= 1 tab(s), Oral, qDay baclofen, 10 mg= 1 tab(s), Oral, TID DuoNeb 0.5 mg - 2.5 mg/3 mL inhalation soln, 3 mL, Inhalation, QIDRT Lasix, 40 mg= 1 tab(s), Oral, BID levothyroxine, 175 mcg= 1 tab(s), Oral, qDay magnesium oxide, 200 mg= 0.5 tab(s), Oral, BID metoclopramide, 5 mg= 1 tab(s), Oral, TID Mylicon, 80 mg= 1 tab(s), Chewed, TID, PRN Myrbetriq, 25 mg= 1 tab(s), Oral, BID omega-3 fish oil 1000 mg oral capsule, 1000 mg= 1 cap(s), Oral, BID ondansetron, 4 mg= 2 mL, IV Push, q4h, PRN potassium chloride 10 mEq oral capsule, extended release, 30 mEq= 3 cap(s), Oral, BIDM Protonix, 20 mg= 1 tab(s), Oral, BID Pulmicort Respules 0.25 mg/2 mL inhalation suspension, 0.25 mg= 2 mL, Inhalation, BIDRT Vistaril, 50 mg= 1 cap(s), Oral, QID, PRN Vitamin D3 25 mcg (1000 intl units) oral tablet, 25 mcg= 1 tab(s), Oral, qDay Home Albuterol (Eqv-Proventil HFA) 90 mcg/inh inhalation aerosol, 2 inh, Inhalation, QID, PRN albuterol-ipratropium 2.5 mg-0.5 mg/3 mL inhalation solution, 3 mL, Inhalation, QID, 3 refills amLODIPine 5 mg oral tablet, 5 mg= 1 tab(s), Oral, qDay, 3 refills aspirin 325 mg oral delayed release tablet, 325 mg= 1 tab(s), Oral, qDay baclofen 10 mg oral tablet, 1 tab(s), Oral, TID, 2 refills Benefiber oral powder for reconstitution, 5 mL, Oral, BID, PRN, Still taking, not as prescribed: takes every day flax seed oil 1000 mg oral capsule, 1 cap(s), Oral, qDay Flovent HFA 44 mcg/inh inhalation aerosol, 2 inh, Inhalation, BID hydroCHLOROthiazide 25 mg oral tablet, 1 tab(s), Oral, qDay, Still taking, not as prescribed: patient states that she takes this 2 times a day labetalol 200 mg oral tablet, 1 tab(s), Oral, qDay, Patient Unsure Lasix 40 mg oral tablet, 40 mg= 1 tab(s), Oral, BID, 4 refills levothyroxine 175 mcg (0.175 mg) oral tablet, 1 tab(s), Oral, qDay Magnesium 250 mg tablet, 250 mg= 1 tab(s), Oral, BID metoclopramide 5 mg oral tablet, 1 tab(s), Oral, TID Myrbetriq 25 mg oral tablet, extended release, 25 mg, Oral, BID, 3 refills NexIUM 20 mg oral delayed release capsule, 20 mg= 1 cap(s), Oral, qDay omega-3 fish oil 1000 mg oral capsule, 1000 mg= 1 cap(s), Oral, BID omeprazole 20 mg oral delayed release capsule, 1 cap(s), Oral, qHS, 3 refills potassium chloride 10 mEq oral capsule, extended release, 30 mEq= 3 cap(s), Oral, BID Prevagen tablet, 1 tab(s), Oral, Daily Probiotic, 1 cap(s), Oral, qDay Qvar Redihaler 40 mcg/inh inhalation aerosol, 1 puff(s), Inhalation, BID, 4 refills Vistaril 50 mg oral capsule, 50 mg= 1 cap(s), Oral, QID, PRN, 5 refills Vitamin C 500 mg oral tablet, 500 mg= 1 tab(s), Oral, qDay Vitamin D3 25 mcg (1000 intl units) oral capsule, 25 mcg= 1 cap(s), Oral, qDay zinc (as acetate) 25 mg oral capsule, 25 mg= 1 cap(s), Oral, TID Allergies Ambien Aspartame (non-codified) Ativan Nembutal Percocet 7.5/325 Tape, plastic (Rash) codeine morphine Social History Alcohol - Denies Alcohol Use, 01/21/2018 Use: Never., 08/28/2020 Substance Abuse - Denies Substance Abuse, 01/21/2018 Use: Never., 04/08/2022 Tobacco - Denies Tobacco Use, 01/21/2018 Tobacco Use: Former smoker- quit 1960. Type: Cigarettes., 08/13/2018 Family History Bladder cancer: Negative: Mother, Father, Sister, Brother, Daughter, Son and Grandparent. Blood clot: Sister. Heart attack: Father. Heart disease: Father. High blood pressure: Mother and Father. Hypercholesterolemia: Mother and Father. Hypertension: Mother. Kidney stone: Negative: Mother, Father, Sister, Brother, Daughter, Son and Grandparent. Renal cancer: Negative: Mother, Father, Sister, Brother, Daughter, Son and Grandparent. Stroke: Mother. Immunizations pneumococcal 13-valent conjugate vaccine: 0.5 mL (12/07/18) pneumococcal 23-valent vaccine(Pneumovax: 0 unknown unit (11/25/05) SARS-CoV-2 (COVID-19) mRNA-1273 vaccine: 0.25 unknown unit (02/28/21) SARS-CoV-2 (COVID-19) mRNA-1273 vaccine: 0 unknown unit (07/04/20) SARS-CoV-2 (COVID-19) mRNA-1273 vaccine: 0 unknown unit (06/01/20) zoster vaccine, inactivated: 0.5 unknown unit (01/25/21) Digitally Signed by LAURA HENRIQUEZ MD on 06/19/2023 02:57 PM [id number] Respiratory therapy Hospital Progress note Respiratory Therapy Evaluation Entered On: 06/19/2023 8:21 EDT Performed On: 06/19/2023 8:19 EDT by Sterling Khan RRT Respiratory Therapy Evaluation Pulmonary Status : Pulmonary disorder Surgical Status : No surgeries Chest X-Ray : Chronic changes/pending results Breath Sounds (RT) : Clear Respiratory Pattern (RT) : Regular RR=12-20 Cough (RT) : Strong, non-productive Respiratory Therapy Evaluation Score : 5 Level of Activity : Ambulatory with assistance Mental Status : Alert, oriented Respiratory Evaluation Triage Score : 5 - (0-5) Freq: Q4RT prn RT Assessment [Frequency/Schedule] : PRN eval, BID Tx use at home Sterling Khan MOLD TOOLING TECHNICIAN - 06/19/2023 8:19 EDT Digitally Signed by Sterling Khan RRT on 06/19/2023 08:19 AM [id number] History and physical note Date of Service 06/18/2023 Chief Complaint Worsening shortness of breath and low pulse rate per patient that started at 3 am this am. History of Present Illness Patient is an 82-year-old female with past medical history significant for hypertension, GERD, hypothyroidism, COPD, chronic back pain, diastolic heart failure (EF 60-65), recurrent UTIs, morbid obesity, osteoporosis, chronic depression. She [facility] with complaints of weakness, shortness of breath andconcerns of low heart rate as low as 48 at home. To be noted, patient has been in communication with her primary care doctor and finishing lab technician since 06/09/2023 with complaints of shortness of breath. According to documentation, patient has been refusing to be evaluated in the emergency department. Patient scheduled for outpatient echocardiogram 07/01/2023. Patient states that she noted her heart ratewould drop into the 40s most often at night. Upon arrival to the emergency department patient was hypoxic 87% on room air and requiring supplemental oxygen. Chest xray with no significant findings. CBC without significant derangement. CMP with a CO2 37, otherwise no significant derangement. proBNP 123. Negative troponin. D-dimer less than 200. Blood gas with a pH 7.4, pCO2 51, PaO2 of 63. Patientto be admitted for further workup including consult to cardiology and sleep study. One-time dose ofIV Lasix 20 mg daily. On exam today, patient resting comfortably in the bed. She states that she came to the hospital to obtain oxygen at night. Denies chest pain, nausea, vomiting. Does endorse some shortness of breath especially while lying flat. Patient states that she always sleeps in a recliner. Review of Systems Review of Systems: Reviewed in detail, including general health, HEENT, cardiovascular, respiratory, gastrointestinal, genitourinary, endocrine, musculoskeletal, neurologic, vascular, skin, and psychiatric. All are negative except for those listed in the History of Present Illness. Physical Exam Vitals and Measurements T: 36 C (Oral) HR: 76(Monitored) RR: 20 BP: 159/62 SpO2: 92% WT: 104.5 kg Weight Dosing Weight: 104.5 kg (06/18/23) General: No acute distress. Alert and Appropriate Skin: No rash. Warm, Dry, Intact. Pale. Lungs: Bilaterally diminished breath sounds with no crepitation or wheeze. Unlabored Cardiovascular: Heart is regular rhythm, S1S2, No extra-audible heart tones Abdomen: Abdomen is round, soft, nontender. Bowel sounds positive all four quadrants. Extremities: No clubbing, cyanosis or edema. Peripheral pulses palpable. No calf tenderness. Adequate peripheral circulation. Neurological: The patient is awake, oriented to time, people and place. Following simple commands, moving all extremities. Lab Results 06/17 09:12 WBC: 6.0 Hgb: 15.1 Hct: 44.3 Platelet: 139 L Neutrophil %: 61.3 Glucose Level: 94 Sodium Level: 136 Potassium Level: 3.5 BUN: 17.0 Creatinine Lvl (s): 1.15 Imaging Results and Diagnostics XR Chest 1 View Result Date: June 18, 2023 Verified By: INDY RAMIREZ MD CLINICAL STATEMENT: IMPRESSION: No acute pulmonary disease. EKG EC06/18/23: SINUS OR ECTOPIC ATRIAL RHYTHM NONSPECIFIC IVCD WITH LAD LEFT VENTRICULAR HYPERTROPHY ANTERIOR Q WAVES, POSSIBLY DUE TO LVH Electronic Signature: MD SCOTT BLANCHARD MD 06/18/2023 09:35:12 Assessment/Plan 1. Shortness of breath 2. Hypoxia -Patient has been in communication with her primary care doctor and finishing lab technician since 06/09/2023 with complaints of shortness of breath. According to documentation, patient has been refusing to be evaluated in the emergency department until today -Blood gas with a pH 7.4, pCO2 51, PaO2 of 63. -Patient was hypoxic 87% on room air and requiring supplemental oxygen -Continue breathing treatments as needed 3. COPD, not in exacerbation -No wheezes on exam, discontinue steroids 4. Possible acute on chronic congestive heart failure exacerbation -Patient scheduled for outpatient echocardiogram 07/01/2023. Last echo June 2022 with an EF of 60 to 65%. Grade 1 diastolic dysfunction. -Consult to cardiology -Stepdown with monitor -One-time dose of IV Lasix 20 mg daily. 5. Possible undiagnosed sleep apnea -Patient states that she noted her heart rate would drop into the 40s most often at night. -Plan for sleep study tonight. Patient has history of claustrophobia 5. Hypothyroidism -Patient admits to noncompliance with levothyroxine due to being fatigued in the morning -TSH 31 -Continue home dose levothyroxine when med rec completed 6. Chronic back pain -Stable, continue home medications 7. Chronic hypertension -Blood pressure slightly elevated -Resume p.o. medications when med rec completed 8. Recurrent UTIs -UA today not concerning for infection 9. Morbid obesity -Complicating all aspects of care 10. Chronic depression -Patient is anxious today -Continue home medications when med rec completed Plan of care discussed with patient. Patient has lost her cell phone and does not have phone numbers to provide and update. All questions answered. Patient verbalized understanding is agreeable to plan of care. Discussed with my collaborating physician Dr. Gonzalez. This dictation was performed using voice recognition software and may include grammatical and/or spelling errors. Problem List/Past Medical History Ongoing Abnormal EKG BMI 40.0-44.9, adult Bronchitis Cerumen impaction Chronic back pain greater than 3 months duration Chronic cellulitis Chronic depression COPD (chronic obstructive pulmonary disease) Diarrhea Diastolic heart failure Dizziness PIZARRO (dyspnea on exertion) Does mobilize using cane Dyspnea Edema Exertional shortness of breath Facial skin lesion Frequency-urgency syndrome Frequent UTI GERD (gastroesophageal reflux disease) HTN (hypertension) Hypokalemia Hypothyroidism Leg swelling Lumbar radiculopathy Medicare annual wellness visit, subsequent Medication management Morbid obesity Nocturia Osteoporosis Osteoporosis monitoring declined Palpitations Pulmonary hypertension Rectal bleeding Sciatica Snoring Spondylolisthesis of lumbar region Urinary incontinence Historical Acute bronchitis Acute hypoxemic respiratory failure Chronic bronchitis COPD with acute exacerbation Influenza A Recurrent urinary tract infection Skin ulceration Streptococcal pneumonia Procedure/Surgical History Echocardiogram: 07/04/22 Echocardiogram: 09/11/21 Esophagogastroduodenoscopy and dilation of esophageal stricture: 01/21/18 Dental: 2016 Total knee replacement L: 2014 Carpal tunnel release: 2000 Carpal tunnel release: 1989 Tonsils and adenoids: 1945 Arthroplasty of shoulder Arthroscopy of knee History of lumbar fusion H/O: hysterectomy History of total replacement of right hip joint Cholecystectomy CE - Cataract extraction Spinal fusion Neuroplasty and/or transposition; median nerve at carpal tunnel Medications Home Medications (32) Active Albuterol (Eqv-Proventil HFA) 90 mcg/inh inhalation aerosol 2 inh, PRN, Inhalation, QID albuterol-ipratropium 2.5 mg-0.5 mg/3 mL inhalation solution 3 mL, Inhalation, QID Amlactin 12% topical lotion 1 vidhya, Topical, BID amLODIPine 5 mg oral tablet 5 mg = 1 tab(s), Oral, qDay amoxicillin 500 mg oral capsule See Instructions aspirin 325 mg oral delayed release tablet 325 mg = 1 tab(s), Oral, qDay baclofen 10 mg oral tablet 1 tab(s), Oral, TID Benefiber oral powder for reconstitution 5 mL, PRN, Oral, BID ciprofloxacin 250 mg oral tablet See Instructions clotrimazole 1% topical cream 1 vidhya, PRN, Topical, BID Eucerin topical cream 1 vidhya, PRN, Topical, BID flax seed oil 1000 mg oral capsule 1,000 mg = 1 cap(s), Oral, qDay Flovent HFA 44 mcg/inh inhalation aerosol 2 inh, Inhalation, BID hydroCHLOROthiazide 25 mg oral tablet 1 tab(s), Oral, qDay labetalol 200 mg oral tablet 1 tab(s), Oral, qDay Lasix 40 mg oral tablet 40 mg = 1 tab(s), Oral, BID levothyroxine 175 mcg (0.175 mg) oral tablet 1 tab(s), Oral, qDay Magnesium 250 mg tablet 500 mg = 2 tab(s), Oral, qDay metoclopramide 5 mg oral tablet 1 tab(s), Oral, TID Myrbetriq 25 mg oral tablet, extended release 25 mg, Oral, BID NexIUM 20 mg, Oral, qDay omega-3 fish oil 1000 mg oral capsule 1,000 mg = 1 cap(s), Oral, qDay omeprazole 20 mg oral delayed release capsule 1 cap(s), Oral, qHS potassium chloride 10 mEq oral capsule, extended release 30 mEq = 3 cap(s), Oral, BID Prevagen tablet 1 tab(s), Oral, Daily Probiotic Qvar Redihaler 40 mcg/inh inhalation aerosol 1 puff(s), Inhalation, BID Tylenol Extra Strength 500 mg oral tablet 1,000 mg = 2 tab(s), PRN, Oral, q6h Vistaril 50 mg oral capsule 50 mg = 1 cap(s), PRN, Oral, QID Vitamin C 500 mg oral tablet 500 mg = 1 tab(s), Oral, qDay Vitamin D3 1000IU, Oral, qDay zinc (as acetate) 25 mg oral capsule 25 mg = 1 cap(s), Oral, TID Allergies Ambien Aspartame (non-codified) Ativan Nembutal Percocet 7.5/325 Tape, plastic (Rash) codeine morphine Social History Alcohol - Denies Alcohol Use, 01/21/2018 Use: Never., 08/28/2020 Substance Abuse - Denies Substance Abuse, 01/21/2018 Use: Never., 04/08/2022 Tobacco - Denies Tobacco Use, 01/21/2018 Tobacco Use: Former smoker- quit 1960. Type: Cigarettes., 08/13/2018 Family History Bladder cancer: Negative: Mother, Father, Sister, Brother, Daughter, Son and Grandparent. Blood clot: Sister. Heart attack: Father. Heart disease: Father. High blood pressure: Mother and Father. Hypercholesterolemia: Mother and Father. Hypertension: Mother. Kidney stone: Negative: Mother, Father, Sister, Brother, Daughter, Son and Grandparent. Renal cancer: Negative: Mother, Father, Sister, Brother, Daughter, Son and Grandparent. Stroke: Mother. Immunizations pneumococcal 13-valent conjugate vaccine: 0.5 mL (12/07/18) pneumococcal 23-valent vaccine(Pneumovax: 0 unknown unit (11/25/05) SARS-CoV-2 (COVID-19) mRNA-1273 vaccine: 0.25 unknown unit (02/28/21) SARS-CoV-2 (COVID-19) mRNA-1273 vaccine: 0 unknown unit (07/04/20) SARS-CoV-2 (COVID-19) mRNA-1273 vaccine: 0 unknown unit (06/01/20) zoster vaccine, inactivated: 0.5 unknown unit (01/25/21) Code Status Code Status - Ordered -- 06/18/23 11:32:00 EDT, Full Code, Constant Order Digitally Signed by KENDALL NOLAN on 06/18/2023 01:54 PM [id number] Evaluation + Plan noteExtracted from: Title:History and Physical Author:ASPEN NOLAN Date:06/18/23 1. Shortness of breath 2. Hypoxia -Patient has been in communication with her primary care doctor and finishing lab technician since 06/09/2023 with complaints of shortness of breath. According to documentation, patient has been refusing to be evaluated in the emergency department until today -Blood gas with a pH 7.4, pCO2 51, PaO2 of 63. -Patient was hypoxic 87% on room air and requiring supplemental oxygen -Continue breathing treatments as needed 3. COPD, not in exacerbation -No wheezes on exam, discontinue steroids 4. Possible acute on chronic congestive heart failure exacerbation -Patient scheduled for outpatient echocardiogram 07/01/2023. Last echo June 2022 with an EF of 60 to 65%. Grade 1 diastolic dysfunction. -Consult to cardiology -Stepdown with monitor -One-time dose of IV Lasix 20 mg daily. 5. Possible undiagnosed sleep apnea -Patient states that she noted her heart rate would drop into the 40s most often at night. -Plan for sleep study tonight. Patient has history of claustrophobia 5. Hypothyroidism -Patient admits to noncompliance with levothyroxine due to being fatigued in the morning -TSH 31 -Continue home dose levothyroxine when med rec completed 6. Chronic back pain -Stable, continue home medications 7. Chronic hypertension -Blood pressure slightly elevated -Resume p.o. medications when med rec completed 8. Recurrent UTIs -UA today not concerning for infection 9. Morbid obesity -Complicating all aspects of care 10. Chronic depression -Patient is anxious today -Continue home medications when med rec completed Plan of care discussed with patient. Patient has lost her cell phone and does not have phone numbers to provide and update. All questions answered. Patient verbalized understanding is agreeable to plan of care. Discussed with my collaborating physician Dr. Gonzalez. This dictation was performed using voice recognition software and may include grammatical and/or spelling errors. Addendum by WAQAS GONZALEZ MD on June 18, 2023 19:44:17 EDT Collaborative Care Team [facility] Medicine This is a shared/split visit Patient was seen and examined during hospitalization Labs imaging and documentation were reviewed Care discussed during a.m. rounds treatment plan was developed independently and implemented with CLINICAL FACULTY assistance Agree with assessment and plan 82-year-old with past medical history as noted above presents with complaints of bradycardia and hypoxia at home. Patient describes episodes of shortness of breath exacerbated by laying flat. Patient is following up with PCP and cardiology on outpatient basis patient was planned for stress testing outpatient stress testing however this has been complicated by patient's claustrophobia. With regard to hypoxia seems to be worsened with sleep. I do suspect that patient has underlying sleep apnea. Patient was counseled to have a sleep study done on an outpatient basis however patient again refuses this due to claustrophobia (difficulty with CPAP mask) On physical examination patient appears slightly hypervolemic I was able to wean patient to room air however O2 saturation decreased to 92%. At rest Will give patient 20 mg of Lasix, reexamine fluid status in a.m., will obtain nocturnal O2/sleep study and attempt to qualify patient for at least nocturnal O2. Will have cardiology evaluate patient for ischemic workup while patient is in-house. Will obtain TSH level patient does endorse suboptimal adherence to Synthroid. She states that she does skip doses. Continue with home medications as indicated Future Appointments Appointment Date:07/14/2023 10:00:00 AM Scheduled Provider: Location:[facility] Appointment Type:Echo - Echocardiogram Adult Appointment Date:07/30/2023 10:40:00 AM Scheduled Provider:MARNI SAMSON Location:UROLOGY Appointment Type:URO OV Appointment Date:09/01/2023 02:15:00 PM Scheduled Provider:EMILY MCCARTY MD Location:[facility] Appointment Type:PC Wellness Medicare [facility] 04-10-2024 History and physical note Date of Service 06/18/2023 Chief Complaint Worsening shortness of breath and low pulse rate per patient that started at 3 am this am. History of Present Illness Patient is an 82-year-old female with past medical history significant for hypertension, GERD, hypothyroidism, COPD, chronic back pain, diastolic heart failure (EF 60-65), recurrent UTIs, morbid obesity, osteoporosis, chronic depression. She presented to [facility] on 06/18/2023 with complaints of weakness, shortness of breath andconcerns of low heart rate as low as 48 at home. To be noted, patient has been in communication with her primary care doctor and finishing lab technician since 06/09/2023 with complaints of shortness of breath. According to documentation, patient has been refusing to be evaluated in the emergency department. Patient scheduled for outpatient echocardiogram 07/01/2023. Patient states that she noted her heart ratewould drop into the 40s most often at night. Upon arrival to the emergency department patient was hypoxic 87% on room air and requiring supplemental oxygen. Chest xray with no significant findings. CBC without significant derangement. CMP with a CO2 37, otherwise no significant derangement. proBNP 123. Negative troponin. D-dimer less than 200. Blood gas with a pH 7.4, pCO2 51, PaO2 of 63. Patientto be admitted for further workup including consult to cardiology and sleep study. One-time dose ofIV Lasix 20 mg daily. On exam today, patient resting comfortably in the bed. She states that she came to the hospital to obtain oxygen at night. Denies chest pain, nausea, vomiting. Does endorse some shortness of breath especially while lying flat. Patient states that she always sleeps in a recliner. Review of Systems Review of Systems: Reviewed in detail, including general health, HEENT, cardiovascular, respiratory, gastrointestinal, genitourinary, endocrine, musculoskeletal, neurologic, vascular, skin, and psychiatric. All are negative except for those listed in the History of Present Illness. Physical Exam Vitals and Measurements T: 36 C (Oral) HR: 76(Monitored) RR: 20 BP: 159/62 SpO2: 92% WT: 104.5 kg Weight Dosing Weight: 104.5 kg (06/18/23) General: No acute distress. Alert and Appropriate Skin: No rash. Warm, Dry, Intact. Pale. Lungs: Bilaterally diminished breath sounds with no crepitation or wheeze. Unlabored Cardiovascular: Heart is regular rhythm, S1S2, No extra-audible heart tones Abdomen: Abdomen is round, soft, nontender. Bowel sounds positive all four quadrants. Extremities: No clubbing, cyanosis or edema. Peripheral pulses palpable. No calf tenderness. Adequate peripheral circulation. Neurological: The patient is awake, oriented to time, people and place. Following simple commands, moving all extremities. Lab Results 06/17 09:12 WBC: 6.0 Hgb: 15.1 Hct: 44.3 Platelet: 139 L Neutrophil %: 61.3 Glucose Level: 94 Sodium Level: 136 Potassium Level: 3.5 BUN: 17.0 Creatinine Lvl (s): 1.15 Imaging Results and Diagnostics XR Chest 1 View Result Date: June 18, 2023 Verified By: INDY RAMIREZ MD CLINICAL STATEMENT: IMPRESSION: No acute pulmonary disease. EKG EC06/18/23: SINUS OR ECTOPIC ATRIAL RHYTHM NONSPECIFIC IVCD WITH LAD LEFT VENTRICULAR HYPERTROPHY ANTERIOR Q WAVES, POSSIBLY DUE TO LVH Electronic Signature: MD SCOTT BLANCHARD MD 06/18/2023 09:35:12 Assessment/Plan 1. Shortness of breath 2. Hypoxia -Patient has been in communication with her primary care doctor and finishing lab technician since 06/09/2023 with complaints of shortness of breath. According to documentation, patient has been refusing to be evaluated in the emergency department until today -Blood gas with a pH 7.4, pCO2 51, PaO2 of 63. -Patient was hypoxic 87% on room air and requiring supplemental oxygen -Continue breathing treatments as needed 3. COPD, not in exacerbation -No wheezes on exam, discontinue steroids 4. Possible acute on chronic congestive heart failure exacerbation -Patient scheduled for outpatient echocardiogram 07/01/2023. Last echo June 2022 with an EF of 60 to 65%. Grade 1 diastolic dysfunction. -Consult to cardiology -Stepdown with monitor -One-time dose of IV Lasix 20 mg daily. 5. Possible undiagnosed sleep apnea -Patient states that she noted her heart rate would drop into the 40s most often at night. -Plan for sleep study tonight. Patient has history of claustrophobia 5. Hypothyroidism -Patient admits to noncompliance with levothyroxine due to being fatigued in the morning -TSH 31 -Continue home dose levothyroxine when med rec completed 6. Chronic back pain -Stable, continue home medications 7. Chronic hypertension -Blood pressure slightly elevated -Resume p.o. medications when med rec completed 8. Recurrent UTIs -UA today not concerning for infection 9. Morbid obesity -Complicating all aspects of care 10. Chronic depression -Patient is anxious today -Continue home medications when med rec completed Plan of care discussed with patient. Patient has lost her cell phone and does not have phone numbers to provide and update. All questions answered. Patient verbalized understanding is agreeable to plan of care. Discussed with my collaborating physician Dr. Gonzalez. This dictation was performed using voice recognition software and may include grammatical and/or spelling errors. Problem List/Past Medical History Ongoing Abnormal EKG BMI 40.0-44.9, adult Bronchitis Cerumen impaction Chronic back pain greater than 3 months duration Chronic cellulitis Chronic depression COPD (chronic obstructive pulmonary disease) Diarrhea Diastolic heart failure Dizziness PIZARRO (dyspnea on exertion) Does mobilize using cane Dyspnea Edema Exertional shortness of breath Facial skin lesion Frequency-urgency syndrome Frequent UTI GERD (gastroesophageal reflux disease) HTN (hypertension) Hypokalemia Hypothyroidism Leg swelling Lumbar radiculopathy Medicare annual wellness visit, subsequent Medication management Morbid obesity Nocturia Osteoporosis Osteoporosis monitoring declined Palpitations Pulmonary hypertension Rectal bleeding Sciatica Snoring Spondylolisthesis of lumbar region Urinary incontinence Historical Acute bronchitis Acute hypoxemic respiratory failure Chronic bronchitis COPD with acute exacerbation Influenza A Recurrent urinary tract infection Skin ulceration Streptococcal pneumonia Procedure/Surgical History Echocardiogram: 07/04/22 Echocardiogram: 09/11/21 Esophagogastroduodenoscopy and dilation of esophageal stricture: 01/21/18 Dental: 2016 Total knee replacement L: 2013 Carpal tunnel release: 2000 Carpal tunnel release: 1989 Tonsils and adenoids: 1945 Arthroplasty of shoulder Arthroscopy of knee History of lumbar fusion H/O: hysterectomy History of total replacement of right hip joint Cholecystectomy CE - Cataract extraction Spinal fusion Neuroplasty and/or transposition; median nerve at carpal tunnel Medications Home Medications (32) Active Albuterol (Eqv-Proventil HFA) 90 mcg/inh inhalation aerosol 2 inh, PRN, Inhalation, QID albuterol-ipratropium 2.5 mg-0.5 mg/3 mL inhalation solution 3 mL, Inhalation, QID Amlactin 12% topical lotion 1 vidhya, Topical, BID amLODIPine 5 mg oral tablet 5 mg = 1 tab(s), Oral, qDay amoxicillin 500 mg oral capsule See Instructions aspirin 325 mg oral delayed release tablet 325 mg = 1 tab(s), Oral, qDay baclofen 10 mg oral tablet 1 tab(s), Oral, TID Benefiber oral powder for reconstitution 5 mL, PRN, Oral, BID ciprofloxacin 250 mg oral tablet See Instructions clotrimazole 1% topical cream 1 vidhya, PRN, Topical, BID Eucerin topical cream 1 vidhya, PRN, Topical, BID flax seed oil 1000 mg oral capsule 1,000 mg = 1 cap(s), Oral, qDay Flovent HFA 44 mcg/inh inhalation aerosol 2 inh, Inhalation, BID hydroCHLOROthiazide 25 mg oral tablet 1 tab(s), Oral, qDay labetalol 200 mg oral tablet 1 tab(s), Oral, qDay Lasix 40 mg oral tablet 40 mg = 1 tab(s), Oral, BID levothyroxine 175 mcg (0.175 mg) oral tablet 1 tab(s), Oral, qDay Magnesium 250 mg tablet 500 mg = 2 tab(s), Oral, qDay metoclopramide 5 mg oral tablet 1 tab(s), Oral, TID Myrbetriq 25 mg oral tablet, extended release 25 mg, Oral, BID NexIUM 20 mg, Oral, qDay omega-3 fish oil 1000 mg oral capsule 1,000 mg = 1 cap(s), Oral, qDay omeprazole 20 mg oral delayed release capsule 1 cap(s), Oral, qHS potassium chloride 10 mEq oral capsule, extended release 30 mEq = 3 cap(s), Oral, BID Prevagen tablet 1 tab(s), Oral, Daily Probiotic Qvar Redihaler 40 mcg/inh inhalation aerosol 1 puff(s), Inhalation, BID Tylenol Extra Strength 500 mg oral tablet 1,000 mg = 2 tab(s), PRN, Oral, q6h Vistaril 50 mg oral capsule 50 mg = 1 cap(s), PRN, Oral, QID Vitamin C 500 mg oral tablet 500 mg = 1 tab(s), Oral, qDay Vitamin D3 1000IU, Oral, qDay zinc (as acetate) 25 mg oral capsule 25 mg = 1 cap(s), Oral, TID Allergies Ambien Aspartame (non-codified) Ativan Nembutal Percocet 7.5/325 Tape, plastic (Rash) codeine morphine Social History Alcohol - Denies Alcohol Use, 01/21/2018 Use: Never., 08/28/2020 Substance Abuse - Denies Substance Abuse, 01/21/2018 Use: Never., 04/08/2022 Tobacco - Denies Tobacco Use, 01/21/2018 Tobacco Use: Former smoker- quit 1960. Type: Cigarettes., 08/13/2018 Family History Bladder cancer: Negative: Mother, Father, Sister, Brother, Daughter, Son and Grandparent. Blood clot: Sister. Heart attack: Father. Heart disease: Father. High blood pressure: Mother and Father. Hypercholesterolemia: Mother and Father. Hypertension: Mother. Kidney stone: Negative: Mother, Father, Sister, Brother, Daughter, Son and Grandparent. Renal cancer: Negative: Mother, Father, Sister, Brother, Daughter, Son and Grandparent. Stroke: Mother. Immunizations pneumococcal 13-valent conjugate vaccine: 0.5 mL (12/07/18) pneumococcal 23-valent vaccine(Pneumovax: 0 unknown unit (11/25/05) SARS-CoV-2 (COVID-19) mRNA-1273 vaccine: 0.25 unknown unit (02/28/21) SARS-CoV-2 (COVID-19) mRNA-1273 vaccine: 0 unknown unit (07/04/20) SARS-CoV-2 (COVID-19) mRNA-1273 vaccine: 0 unknown unit (06/01/20) zoster vaccine, inactivated: 0.5 unknown unit (01/25/21) Code Status Code Status - Ordered -- 06/18/23 11:32:00 EDT, Full Code, Constant Order Digitally Signed by KENDALL NOLAN on 06/18/2023 01:54 PM [id number] NoteSINUS OR ECTOPIC ATRIAL RHYTHM NONSPECIFIC IVCD WITH LAD LEFT VENTRICULAR HYPERTROPHY ANTERIOR Q WAVES, POSSIBLY DUE TO LVH Electronic Signature: MD SCOTT BLANCHARD MD 06/18/2023 09:35:12[facility] 04-10-2024 Note ORIGINAL EXAMINATION: ONE XRAY VIEW OF THE CHEST TECHNIQUE: One view, AP upright COMPARISON: Chest 02/26/2022 HISTORY: ORDERING SYSTEM PROVIDED HISTORY: Reason for Exam: chest pain FINDINGS: Support devices: None Cardiomediastinal: The heart is stable in size and configuration. Lungs: Mild bibasilar subsegmental atelectasis. No pulmonary edema, consolidation or a pleural effusion. Pneumothorax: None Osseous: No acute osseous pathology. The bones are diffusely demineralized. End-stage bilateral shoulder arthrosis. Foreshortening of the distal left clavicle secondary to either degenerative or postoperative changes. IMPRESSION: No acute pulmonary disease. Interpreted by: Indy Ramirez MD Preliminary Report By: Indy Ramirez MD Electronically signed By Indy Ramirez MD Dictated Date: 06/18/2023 8:20:28 AM Prelim Date: 06/18/2023 8:22:34 AM Sign Date: 06/18/2023 8:22:34 AM Ordering Provider: JACK[facility]04-10-2024 Hospital Discharge instructions Follow Up Care 06/18/2023 06:14:47 With:LINDA TEE Address: [address] [place] [phone] Business (1) When:1-2 days Comments:Follow-up for sleep study With:AUDRA ONEYDA Address: [address] [place] [address] [address] [facility] [place] [address]- Business (1) When:1-2 days With:Patient is discharged to [facility]. Please call report to [phone]. Address:Unknown When:1-2 days With:EMILY MCCARTY [facility] Address: [address] [facility] [address] [facility] [address] [facility] [place] [address]- Business (1) When:1-2 days Comments:Please call the office to schedule a follow-up appointment. [facility] 12-10-2022 Note Discharge Instructions Thank you for allowing [facility] to assist you with your healthcare needs. The following is importantdischarge information regarding your hospital visit. Your Care Team EMILY MCCARTY MD Your Diagnosis Influenza A virus present Hypoxia Hypokalemia Hypothyroidism What to do next Instructions From Your Doctor You have been treated for pneumonia and COPD exacerbation. You have already received your medications for today. Complete your course of Tamiflu for the flu with 2 more doses tomorrow.. You are to complete course of antibiotics as an outpatient. You have already received your dose antibiotics today. You have an additional 6 days starting tomorrow 02/17. You are also being treated with a steroid taper. Your next dose of steroids is on 02/17. Follow-up with your primary care physician as an outpatient. Call your doctor or present to the ER for any new or worsening symptoms Scheduled Follow-Up Appointments Appointment Type When With Where Contact InformationNS MUSHROOM CULTIVATOR 02/20/2022 11:00 AM EST [facility] Neurosurgery [address] [facility] [address] [facility] [address] [place] [address] PC OV Follow Up 04/25/2022 01:00 PM EST EMILY MCCARTY [place] [facility] Follow Up Appointments Follow Up with EMILY MCCARTY MD, [facility] When Within 5 to 7 days Why: Please call the office to schedule a follow up appointment Where: [address] [facility] [place] [address]- Follow Up with [facility], When Within 1-2 days Why: A referral was made for aide services for you. Call them with any questions Follow Up with Go to emergency room if symptoms worsen When Within 2-4 days The Following Activity and Diet Have Been Ordered for You Discharge Activity - Ordered -- NO activity restrictions, 02/16/22 14:31:00 EST Discharge Diet - Ordered -- No changes were made to your diet during your hospital stay. Please resume your pre hospitalization diet on discharge., 02/16/22 14:31:00 EST Allergies Ambien Aspartame (non-codified) Ativan Nembutal Percocet 7.5/325 codeine morphine Medications Please ask your primary doctor or pharmacist before taking any other medication not listed, including over the counter drugs, herbal medications, vitamins and or supplements as they may interact withyour home medications. What How Much When Why Instructions Last Dose New amoxicillin-clavulanate (amoxicillin-clavulanate 875 mg-125 mg oral tablet) 1 tab(s) by mouth Every 12 hours Duration: 6 Days Pickup at [facility] #02995 New oseltamivir (Tamiflu 75 mg oral capsule) 1 cap by mouth Two (2) times a day Duration: 1 Days Pickup at [facility] #01283 Changed predniSONE (prednisone 20mg tab (TAPER)) Taper 60-40-20 mg x 3 days each dose by mouth Every day Duration: 9 Days Pickup at [facility] #99021 Unchanged acetaminophen (Tylenol Extra Strength 500 mg oral tablet) 2 tab(s) by mouth Every 6 hours as needed for as needed for fever Unchanged albuterol (Proventil HFA MDI (90 mcg/ inh) inhalation aerosol) 2 puff(s) by inhalation Four (4) times a day as needed for as needed for wheezing Duration: 90 Days Unchanged albuterol-ipratropium (albuterol-ipratropium 2.5 mg-0.5 mg/ 3 mL inhalation solution) 3 Milliliter by inhalation Four (4) times a day Pickup at [facility] #[id number] Unchanged aspirin (aspirin 325 mg oral delayed release tablet) 1 tab(s) by mouth Once a day Unchanged baclofen (baclofen 10 mg oral tablet) See instructions TAKE 1 TABLET BY MOUTH THREE TIMES DAILY Unchanged calcium carbonate-magnesium chloride (Magnesium Chloride With Calcium 64 mg-112 mg oral delayed release tablet) 1 tab(s) by mouth Two (2) times a day Unchanged cephalexin (cephalexin 250 mg oral capsule) 1 cap by mouth Every day UTI prophylaxis Resume after completing your amoxicillin-clavulanate Unchanged cholecalciferol (Vitamin D3) 1000IU by mouth Once a day Unchanged clotrimazole topical (clotrimazole 1% topical cream) 1 application Topical Two (2) times a day as needed for Rash Unchanged DME (Prescription MISCellaneous) See instructions [facility]--aplly once daily to wound. Unchanged DULoxetine (DULoxetine 20 mg oral delayed release capsule) 1 cap by mouth Once a day Unchanged emollients, topical (Eucerin topical cream) 1 application Topical Two (2) times a day as needed for as needed for dry skin UTI symptoms Recurrent urinary tract infection Edema Unchanged esomeprazole (NexIUM) 20 Milligram by mouth Once a day Unchanged fluticasone (Flovent HFA 44 mcg/ inh inhalation aerosol) 2 inh by inhalation Two (2) times a day Unchanged furosemide (furosemide 20 mg oral tablet) 1 tab(s) by mouth Once a day Duration: 90 Days Unchanged herbal/ nutritional product (flax seed oil 1000 mg oral capsule) 1 cap by mouth Once a day Unchanged herbal/ nutritional product (Prevagen tablet) 1 tab(s) by mouth Every day Unchanged herbal/ nutritional product (Probiotic) 1 qd Unchanged hydroCHLOROthiazide (hydroCHLOROthiazide 25 mg oral tablet) 1 tab(s) by mouth Once a day Unchanged hydrOXYzine (hydrOXYzine pamoate 50 mg oral capsule) 1 cap by mouth Four (4) times a day Unchanged labetalol (labetalol 200 mg oral tablet) 1 tab(s) by mouth Once a day Unchanged levothyroxine (levothyroxine 175 mcg (0.175 mg) oral tablet) 1 tab(s) by mouth Once a day Hypothyroidism Duration: 30 Days Unchanged meloxicam (Mobic 15 mg oral tablet) 1 tab(s) by mouth Once a day as needed for Joint pain Unchanged metoclopramide (metoclopramide 5 mg oral tablet) See instructions TAKE 1 TABLET BY MOUTH 3 TIMES DAILY (30 MINUTES BEFORE 2 MEALS AND AT BEDTIME). Unchanged mirabegron (Myrbetriq 25 mg oral tablet, extended release) 2 tab(s) by mouth Once a day Unchanged omega-3 polyunsaturated fatty acids (omega-3 fish oil 1000 mg oral capsule) 1 cap by mouth Once a day Unchanged omeprazole (omeprazole 20 mg oral delayed release capsule) 1 cap by mouth Daily at bedtime Unchanged potassium chloride (potassium chloride 10 mEq oral capsule, extended release) 1 cap by mouth Two (2) times a day Unchanged wheat dextrin (Benefiber oral powder for reconstitution) 5 Milliliter by mouth Two (2) times a day as needed for for constipation Pharmacy Information [facility] #[id number]: [address] [place], [place] [phone] What How Much When Comments Stop Taking ciprofloxacin (ciprofloxacin 250 mg oral tablet) See instructions TAKE 1 TABLET BY MOUTH EVERY 12 HOURS FOR 7 DAYS Please take this list to your next doctor s visit. Bring all medications you take, including over the counter medications, herbals and other supplements with you to your doctor s visit. Patients and families are reminded to discard old lists and to update any records with all medication providers or retail pharmacies. Education Materials Shortness of Breath (Dyspnea) Shortness of breath is the feeling that you can't catch your breath or get enough air. It is also known as dyspnea. Dyspnea can be caused by many different conditions. They include: Acute asthma attack Worsening of chronic lung diseases such as chronic bronchitis and emphysema Heart failure. This is when weak heart muscle allows extra fluid to collect in the lungs. Panic attacks or anxiety. Fear can cause rapid breathing (hyperventilation). Pneumonia, or an infection in the lung tissue Exposure to toxic substances, fumes, smoke, or certain medicines Blood clot in the lung (pulmonary embolism). This is often from a piece of blood clot in a deep vein of the leg (deep vein thrombosis) that breaks off and travels to the lungs. Heart attack or heart-related chest pain (angina) Anemia Collapsed lung (pneumothorax) Dehydration Based on your visit today, the exact cause of your shortness of breath is not certain. Your tests don t show any of the serious causes of dyspnea. You may need other tests to find out if you have a serious problem. It s important to watch for any new symptoms or symptoms that get worse. Follow up with your healthcare provider as directed. Home care Follow these tips to take care of yourself at home: When your symptoms are better, go back to your usual activities. If you smoke, you should stop. Join a quit-smoking program or ask your healthcare provider for help. Eat a healthy diet and get plenty of sleep. Get regular exercise. Talk with your healthcare provider before starting to exercise, especially ifyou have other medical problems. Cut down on the amount of caffeine and stimulants you consume. Follow-up care Follow up with your healthcare provider, or as advised. If tests were done, you will be told if your treatment needs to be changed. You can call as directed for the results. If an X-ray was taken, a specialist will review it. You will be notified of any new findings that may affect your care. Call 911 Shortness of breath may be a sign of a serious medical problem. For example, it may be a problem with your heart or lungs. Call 911 if you have worsening shortness of breath or trouble breathing, especially with any of the symptoms below: Confusion or difficulty waking Fainting or loss of consciousness. Fast or irregular heartbeat Coughing up blood Pain in your chest, arm, shoulder, neck, or upper back Sweating When to seek medical advice Call your healthcare provider right away if any of these occur: Slight shortness of breath or wheezing Redness, pain or swelling in your leg, arm, or other body area Swelling in both legs or ankles Fast weight gain Dizziness or weakness Fever of 100.4 F (38 C) or higher, or as directed by your healthcare provider [phone] [employer]. [address] [place] [address], [place] [address]. All rights reserved. This information is not intended as a substitute for professional medical care. Always follow yourhealthcare professional's instructions. Additional Information VACCINATE! IT SAVES LIVES! Members of the community who have not yet received the COVID-19 vaccine and would like to receive it can visit one of [facility] vaccine clinics. There are many vaccine clinic locations within the [facility]. For locations and available times, please visit [email or web address] It is important to note that some COVID mobile vaccine clinics are held outdoors and may be canceled in rainy or stormy conditions. To learn more about pediatric vaccinations (ages 5-11), we invite you to visit the [facility] webpage. [email or web address] learn more about the COVID-19 vaccine, we invite you to visit the [facility] website for a list of frequently asked questions. [email or web address] [facility] Patient Portal Access Instructions: Stay connected with your healthcare team and access your personal medical information anytime with the [facility] Patient Portal.If you would like a full copy of your medical records, please contact the [facility] Medical Records Department, Friday through Friday between 8a.m. and 4:30p.m. Please follow the directions below to access the portal: 1.Access the email account you provided upon registration to the hospital.2.Look for an invitation email from [facility].3.Open the email and access the invitation link: Accept Invitation to [facility].Fill in the required carpenter to create your account. Sign into [email or web address] with your username and password that you created in the above steps to stay up to date. You can then view a summary of results, a summary of your visits, and the ability to download your summaries to your computer or send the information securely to a physician. Remember that your healthcare information is confidential, so carefully consider who you will allow to register on the [facility] Patient Portal for access to your information. You can also access the [facility] Patient Portal on the [employer] vidhya. Simply click on Health Records under exsulin and then click on the [facility] logo. HOW TO SAFELY DISPOSE OF PRESCRIPTION MEDICATIONS Please use one of the following methods to safely dispose of your unused medications. 1.Use a drug disposal kit: the drug disposal pouch allows you to safely discard your old and unuseddrugs. Ask your nurse to give you one when you are discharged.2.Visit a local take-back location: Many local pharmacies and police departments have programs that collect old and unwanted prescriptiondrugs. Call your local pharmacy or go to http://Indigo Clothing.MixRank/6Z2Su8y to find one close to you.3.Make use of household items: Use cat litter or old coffee grounds to dispose medications if other options arenot available. Mix your drugs with these household products, seal them in an airtight container andthrow it into the garbage. Call [facility]: [phone] to be sure your drugs can be disposed of in this way. Some medicines may require a different approach.4.Never flush your medications down the toilet. IF YOU HAVE BEEN PRESCRIBED AN OPIOID FOR PAIN If you have been prescribed an opioid (such as hydrocodone, oxycodone or morphine), it is critical to understand the possible side effects and risks of opioid pain medications. Even when taken as directed, opioids can have several side effects including: Tolerance, meaning you might need to take more of a medication for the same pain relief. Nausea, vomiting and/or constipation. Sleepiness, dizziness, dry mouth, confusion, depression or itching. Physical dependence, meaning you have withdrawal symptoms when a medication is stopped, can develop within a few days. KNOW YOUR RESPONSIBILITIES It is important to know exactly how much and how often to take the opioid pain medications you are prescribed. Never take opioids in higher amounts or more often than prescribed. Do not combine opioids with alcohol or other drugs that cause drowsiness, such as benzodiazepines, also known as benzos, including diazepam and alprazolam, muscle relaxants or sleep aids. Never sell or share prescription opioids. This is illegal. Store opioids in a secure place and out of reach of others (including children, family, friends and visitors). The last page of this document has been signed and retained as a CHART COPY. Signatures Patient Education Materials Shortness of Breath (Dyspnea) Medication Leaflets My discharge plan and instructions have been reviewed and explained to me and I,EMILY PERALTA understand my current condition and have read and understand these discharge instructions. I have received a written copy of the plan/instructions. If I have questions, I am aware that I should contact my doctor. 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 Patient is acutely hypoxic at presentation saturating 80% on room air. Patient positive rapid influenza A. Patient admitted for acute hypoxic respiratory failure with influenza A infection and concern for bronchospasm with possible asthma/COPD exacerbation. Chest x-ray at presentation with mild streaky airspace opacities in the left lung base. Patient found to be positive for strep pneumoniae and influenza A. She was treated with Tamiflu, IV ceftriaxone, and IV steroids. Patient was transition to prednisone. Patient is to continue Tamiflu, prednisone taper, and Augmentin at the time of discharge. Patient's home DuoNeb nebulizer was also refilled. Patient's respiratory status improved during hospitalization. She was initially requiring up to 2 L oxygen via nasal cannula. Oxygen requirements improved patient was saturating well on room air. Patient was dischargedin improved condition and is to follow with primary care physician as an outpatient. Allergies Ambien Aspartame (non-codified) Ativan Nembutal Percocet 7.5/325 codeine morphine Procedures No procedures were performed during this admission Consults Consult to Physical Therapy - Ordered -- 02/13/22 7:41:00 EST, Once Imaging Results and Diagnostics XR Chest 1 View Result Date: February 12, 2022 Verified By: SANDRA MILES MD CLINICAL STATEMENT: IMPRESSION: Mild left atelectasis, otherwise clear lungs. Physical Exam Vitals and Measurements T: 36.7 C (Oral) TMIN: 36.4 C (Oral) TMAX: 36.7 C (Oral) HR: 81 RR: 17 BP: 112/69 SpO2: 93% Weight Dosing Weight: 102.3 kg (02/12/22) Dosing Weight: 102.3 kg (02/12/22) General Appearance: Alert, oriented, well appearing Head: Normocephalic, atraumatic EENT: PERRLA, EOMI. Neck: Supple, no JVD Cardiac: Regular rate and rhythm. Normal S1/S2. No murmurs, rubs, gallops appreciated. Lungs: Wheezing appreciated laterally, improved Abdomen: Soft, nontender, nondistended. BS *4. Musculoskeletal: Strength 5/5 bilaterally in upper and lower extremities. Extremities: No LE edema. Neurological: AO*3, CN 2-12 intact. Skin: No excoriations, lacerations, rash, or erythema Psychiatric: Normal affect Pending Labs and Studies No pending labs or studies Code Status Code Status - Ordered -- 02/12/22 23:16:00 EST, Full Code, Constant Order Admission Date February 12, 2022 Discharge Date February 16, 2022 Patient Instructions You have been treated for pneumonia and COPD exacerbation. You have already received your medications for today. Complete your course of Tamiflu for the flu with 2 more doses tomorrow.. You are to complete course of antibiotics as an outpatient. You have already received your dose antibiotics today. You have an additional 6 days starting tomorrow 02/17. You are also being treated with a steroid taper. Your next dose of steroids is on 02/17. Follow-up with your primary care physician as an outpatient. Call your doctor or present to the ER for any new or worsening symptoms Medications New Prescription amoxicillin-clavulanate (amoxicillin-clavulanate 875 mg-125 mg oral tablet)1 tab(s) by mouth every 12 hours for 6 Days. Refills: 0. oseltamivir (Tamiflu 75 mg oral capsule)1 cap by mouth two (2) times a day for 1 Days. Refills: 0. Changed predniSONE (prednisone 20mg tab (TAPER))Taper 60-40-20 mg x 3 days each dose by mouth every day for9 Days. Refills: 0. Unchanged acetaminophen (Tylenol Extra Strength 500 mg oral tablet)2 tab(s) by mouth every 6 hours as needed as needed for fever. albuterol (Proventil HFA MDI (90 mcg/inh) inhalation aerosol)2 puff(s) by inhalation four (4) timesa day as needed as needed for wheezing for 90 Days. Refills: 1. albuterol-ipratropium (albuterol-ipratropium 2.5 mg-0.5 mg/3 mL inhalation solution)3 Milliliter byinhalation four (4) times a day. Refills: 3. aspirin (aspirin 325 mg oral delayed release tablet)1 tab(s) by mouth once a day. baclofen (baclofen 10 mg oral tablet)TAKE 1 TABLET BY MOUTH THREE TIMES DAILY. Refills: 0. calcium carbonate-magnesium chloride (Magnesium Chloride With Calcium 64 mg-112 mg oral delayed release tablet)1 tab(s) by mouth two (2) times a day. cephalexin (cephalexin 250 mg oral capsule)1 cap by mouth every day. UTI prophylaxis. Refills: 1. cholecalciferol (Vitamin D3)1000IU by mouth once a day. clotrimazole topical (clotrimazole 1% topical cream)1 application Topical two (2) times a day as needed Rash. Refills: 3. DME (Prescription MISCellaneous)[facility]--aplly once daily to wound.. Refills: 1. DULoxetine (DULoxetine 20 mg oral delayed release capsule)1 cap by mouth once a day. Refills: 0. emollients, topical (Eucerin topical cream)1 application Topical two (2) times a day as needed as needed for dry skin. Refills: 0. esomeprazole (NexIUM)20 Milligram by mouth once a day. fluticasone (Flovent HFA 44 mcg/inh inhalation aerosol)2 inh by inhalation two (2) times a day. Refills: 3. furosemide (furosemide 20 mg oral tablet)1 tab(s) by mouth once a day for 90 Days. Refills: 6. herbal/nutritional product (flax seed oil 1000 mg oral capsule)1 cap by mouth once a day. herbal/nutritional product (Prevagen tablet)1 tab(s) by mouth every day. Refills: 0. herbal/nutritional product (Probiotic)1 qd. hydroCHLOROthiazide (hydroCHLOROthiazide 25 mg oral tablet)1 tab(s) by mouth once a day. Refills: 3. hydrOXYzine (hydrOXYzine pamoate 50 mg oral capsule)1 cap by mouth four (4) times a day. Refills: 1. labetalol (labetalol 200 mg oral tablet)1 tab(s) by mouth once a day. Refills: 3. levothyroxine (levothyroxine 175 mcg (0.175 mg) oral tablet)1 tab(s) by mouth once a day for 30 Days. Refills: 1. meloxicam (Mobic 15 mg oral tablet)1 tab(s) by mouth once a day as needed Joint pain. Refills: 2. metoclopramide (metoclopramide 5 mg oral tablet)TAKE 1 TABLET BY MOUTH 3 TIMES DAILY (30 MINUTES BEFORE 2 MEALS AND AT BEDTIME).. Refills: 1. mirabegron (Myrbetriq 25 mg oral tablet, extended release)2 tab(s) by mouth once a day. Refills: 3. omega-3 polyunsaturated fatty acids (omega-3 fish oil 1000 mg oral capsule)1 cap by mouth once a day. omeprazole (omeprazole 20 mg oral delayed release capsule)1 cap by mouth daily at bedtime. Refills:3. potassium chloride (potassium chloride 10 mEq oral capsule, extended release)1 cap by mouth two (2)times a day. Refills: 3. wheat dextrin (Benefiber oral powder for reconstitution)5 Milliliter by mouth two (2) times a day as needed for constipation. Refills: 0. Discontinued ciprofloxacin (ciprofloxacin 250 mg oral tablet)TAKE 1 TABLET BY MOUTH EVERY 12 HOURS FOR 7 DAYS. Refills: 10. Follow Up Follow Up with EMILY MCCARTY MD, [facility] When Within 5 to 7 days Why: Please call the office to schedule a follow up appointment Where: [address] [facility] [place] [address]- Follow Up with [facility], When Within 1-2 days Why: A referral was made for aide services for you. Call them with any questions Follow Up with Go to emergency room if symptoms worsen When Within 2-4 days Follow Up Appointments Consult Home Health - OT - Ordered -- 02/16/22 18:33:00 EST, Home Therapy Order: OT Eval & Treat, Home Therapy Instruction: Full weight bearing, Reason: ADL assistance Consult Home Health - PT - Ordered -- 02/16/22 18:33:00 EST, Home Therapy Order: PT Eval & Treat, Reason: General Debility, Home Therapy Instruction: Full weight bearing Discharge Diet Discharge Diet - Ordered -- No changes were made to your diet during your hospital stay. Please resume your pre hospitalization diet on discharge., 02/16/22 14:31:00 EST Discharge Activity Discharge Activity - Ordered -- NO activity restrictions, 02/16/22 14:31:00 EST Condition on Discharge Improved Discharge Disposition Home Information Provided To Patient Time Spent >30 minutes Digitally Signed by NIKOLAY ARANDA MD on 02/16/2022 06:34 PM [id number] Respiratory therapy Hospital Progress note Respiratory Therapy Evaluation Entered On: 02/16/2022 9:25 EST Performed On: 02/16/2022 9:25 EST by Felicitas Lau LPN Respiratory Therapy Evaluation RT Assessment [Frequency/Schedule] : per protocol QID Pulmonary Status : Pulmonary disorder Felicitas Lau LPN - 02/16/2022 9:26 EST Surgical Status : No surgeries Chest X-Ray : Chronic changes/pending results Breath Sounds (RT) : Wheezes Respiratory Pattern (RT) : Regular RR=12-20 Cough (RT) : Weak, productive Felicitas Lau LPN - 02/16/2022 9:25 EST Respiratory Therapy Evaluation Score : 11 Felicitas Lau LPN - 02/16/2022 9:26 EST Level of Activity : Ambulatory Mental Status : Alert, oriented Respiratory Evaluation Triage Score : 3 - (11-15) Freq: QIDRT & Albuterol Q2 RT prn Felicitas Lau LPN - 02/16/2022 9:25 EST Digitally Signed by Felicitas Lau LPN on 02/16/2022 09:26 AM [id number] Note Chief Complaint Transition plan Transitional Action Points Following up with this patient post physical therapy evaluation. Patient is going to be transitioning home with support from family with ADLs. From baseline she is from home alone however now she will have support from family Recommending follow up with PCP within 3-5 days of discharge Assessment/Plan Influenza A cough Weakness Malaise Readmission Risk Points Age greater than 75 Hypoxia HTN CHF History of Present Illness Patient is an 81-year-old female here for cough, respiratory failure, influenza A and hypokalemia with history of CHF. This is her only hospitalization in the last 12 months. At she was evaluated by physical and Occupational Therapy who are recommending home with family support with ADLs and household tasks. Prior to hospitalization she lived at home alone independently. Denies history of falls, no DME. She does not drive. She [facility], noted to likely anticipate discharge this weekend. Review of Symptoms General: Denies fever or chills HEENT: Denies blurry vision, headache, congestion Respiratory: Denies shortness of breath or cough Cardio: Denies chest pain or palpations GI: Denies abdominal pain or change in appetite Musculoskeletal: Denies injury Neuro: Denies dizziness or confusion Psych: Denies depression or anxiety Physical Exam General: No acute distress HEENT: Oral mucosa moist, eyes following movement Skin: Scattered abrasions Extremities: No lower extremity edema, pulses present Musculoskeletal: Weakness present Neurological: No tremors or focal deficit Psych: mood cooperative Vitals Signs(Last 24 hrs)__Last Charted Minimum Maximum Temp36.4(FEB 16 08:45)36.4(FEB 16 08:45)36.6(FEB 15 15:04) Heart Rate67(FEB 16 08:45)67(FEB 16 08:45)67(FEB 16 08:45) Resp Rate19(FEB 16 08:45)19(FEB 15 12:20)20(FEB 15 10:47) WBO347(FEB 16 08:45)113(FEB 15 15:04)138(FEB 15 21:40) DBP70(FEB 16 08:45)64(FEB 15 15:04)88(FEB 15 16:59) Problem List/ Past Medical History Abnormal EKG BMI 40.0-44.9, adult Bronchitis COPD (chronic obstructive pulmonary disease) Cerumen impaction Chronic back pain greater than 3 months duration Chronic bronchitis Chronic cellulitis Chronic depression PIZARRO (dyspnea on exertion) Diarrhea Diastolic heart failure Dizziness Dyspnea Edema Exertional shortness of breath Frequency-urgency syndrome Frequent UTI GERD (gastroesophageal reflux disease) HTN (hypertension) Hypokalemia Hypothyroidism Leg swelling Medicare annual wellness visit, subsequent Morbid obesity Needs flu shot Nocturia Osteoporosis Osteoporosis monitoring declined Palpitations Recurrent urinary tract infection Sciatica Skin ulceration Urinary incontinence Acute bronchitis Procedure/ Surgical History Echocardiogram: 09/11/21 Esophagogastroduodenoscopy and dilation of esophageal stricture: 01/21/18 Dental: 2016 Total knee replacement L: 2013 Carpal tunnel release: 2000 Carpal tunnel release: 1989 Tonsils and adenoids: 1945 Arthroplasty of shoulder Arthroscopy of knee History of lumbar fusion H/O: hysterectomy History of total replacement of right hip joint Cholecystectomy CE - Cataract extraction Spinal fusion Neuroplasty and/or transposition; median nerve at carpal tunnel Medication List Active Medications Ordered acetaminophen: 650 mg, 2 tab(s), Oral, q6hr, PRN: Pain, scale 1-6. albuterol: 2.5 mg, 3 mL, Inhalation, q4hRT, PRN: Shortness of breath or wheezing. albuterol-ipratropium: 3 mL, Inhalation, QIDRT. aspirin: 325 mg, 1 tab(s), Oral, qDay. cefTRIAXone: 2 gram(s), 20 mL, 240 mL/hr, IV Push (INT), qDay. DULoxetine: 20 mg, 1 cap(s), Oral, qDay. fluticasone nasal: 50 mcg, 1 spray(s), Nostril, each, BID. furosemide: 20 mg, 1 tab(s), Oral, qDay. heparin: 5,000 unit(s), 1 mL, Subcutaneous, q8h. hydroCHLOROthiazide: 25 mg, 1 tab(s), Oral, qDay. hydrOXYzine: 50 mg, 1 cap(s), Oral, QID. labetalol: 200 mg, 1 tab(s), Oral, qDay. levothyroxine: 175 mcg, 1 tab(s), Oral, qDay. melatonin: 3 mg, 1 tab(s), Oral, qHS, PRN: Sleep. mirabegron: 50 mg, 1 tab(s), Oral, qDay. oseltamivir: 75 mg, 1 cap(s), Oral, BID. pantoprazole: 20 mg, 1 tab(s), Oral, qDayAC. potassium chloride: 40 mEq, 2 tab(s), Oral, Once. predniSONE: 60 mg, 3 tab(s), Oral, qDayM. pseudoephedrine: 60 mg, 1 tab(s), Oral, q6h, PRN: Congestion. traMADol: 50 mg, 1 tab(s), Oral, q6h, PRN: Pain, scale 7-10. Prescribed albuterol: 2 puff(s), Inhalation, QID, for 90 day(s), PRN: as needed for wheezing, 3 EA, 1 Refill(s). albuterol-ipratropium: 3 mL, Inhalation, QID, 30 EA, 3 Refill(s). baclofen: See Instructions, TAKE 1 TABLET BY MOUTH THREE TIMES DAILY, 90 tab(s), 0 Refill(s). cephalexin: 250 mg, 1 cap(s), Oral, Daily, UTI prophylaxis, 90 cap(s), 1 Refill(s). ciprofloxacin: See Instructions, TAKE 1 TABLET BY MOUTH EVERY 12 HOURS FOR 7 DAYS, 14 tab(s), 10 Refill(s). clotrimazole topical: 1 vidhya, Topical, BID, PRN: Rash, 30 gram(s), 3 Refill(s). DME: See Instructions, [facility]--aplly once daily to wound., 1 EA, 1 Refill(s). DULoxetine: 20 mg, 1 cap(s), Oral, qDay, 30 cap(s), 0 Refill(s). emollients, topical: 1 vidhya, Topical, BID, PRN: as needed for dry skin, 120 gram(s), 0 Refill(s). fluticasone: 2 inh, Inhalation, BID, 31.8 gram(s), 3 Refill(s). furosemide: 20 mg, 1 tab(s), Oral, qDay, for 90 day(s), 90 tab(s), 6 Refill(s). herbal/nutritional product: 1 tab(s), Oral, Daily, 30 tab(s), 0 Refill(s). hydroCHLOROthiazide: 1 tab(s), Oral, qDay, 90 tab(s), 3 Refill(s). hydrOXYzine: 50 mg, 1 cap(s), Oral, QID, 360 cap(s), 1 Refill(s). labetalol: 1 tab(s), Oral, qDay, 90 tab(s), 3 Refill(s). levothyroxine: 175 mcg, 1 tab(s), Oral, qDay, for 30 day(s), 30 tab(s), 1 Refill(s). meloxicam: 15 mg, 1 tab(s), Oral, qDay, PRN: Joint pain, 30 tab(s), 2 Refill(s). metoclopramide: See Instructions, TAKE 1 TABLET BY MOUTH 3 TIMES DAILY (30 MINUTES BEFORE 2 MEALS AND AT BEDTIME)., 270 tab(s), 1 Refill(s). mirabegron: 2 tab(s), Oral, qDay, 180 tab(s), 3 Refill(s). omeprazole: 1 cap(s), Oral, qHS, 90 cap(s), 3 Refill(s). potassium chloride: 1 cap(s), Oral, BID, 180 cap(s), 3 Refill(s). predniSONE: 50 mg, 1 tab(s), Oral, qDay, for 5 day(s), 5 tab(s), 0 Refill(s). wheat dextrin: 5 mL, Oral, BID, PRN: for constipation, 155 gram(s), 0 Refill(s). Documented acetaminophen: 1,000 mg, 2 tab(s), Oral, q6h, PRN: as needed for fever, 0 Refill(s). aspirin: 325 mg, 1 tab(s), Oral, qDay, 0 Refill(s). calcium carbonate-magnesium chloride: 1 tab(s), Oral, BID, 60 tab(s), 0 Refill(s). cholecalciferol: 1000IU, Oral, qDay, 0 Refill(s). esomeprazole: 20 mg, Oral, qDay, 0 Refill(s). herbal/nutritional product: 1 qd, 0 Refill(s). herbal/nutritional product: 1,000 mg, 1 cap(s), Oral, qDay, 0 Refill(s). omega-3 polyunsaturated fatty acids: 1,000 mg, 1 cap(s), Oral, qDay, 90 cap(s), 0 Refill(s). Medications Inactivated in the Last 72 Hours doxycycline: 100 mg, 1 cap(s), Oral, BID, for 7 day(s), 14 cap(s), 0 Refill(s). furosemide: 20 mg, 2 mL, IV Push, Once. ibuprofen: 800 mg, 2 tab(s), Oral, Once. magnesium sulfate: 4 gram(s), 100 mL, 50 mL/hr, IV Piggyback, Once. methylPREDNISolone: 40 mg, 1 mL, IV Push, q8h. potassium bicarbonate: 50 mEq, 2 tab(s), Oral, Once. potassium phosphate: 30 mmol, 10 mL, 57.78 mL/hr, IV Piggyback, Once. Sodium Chloride 0.9% intravenous solution: Miscellaneous, Once. Allergies Ambien Aspartame (non-codified) Ativan codeine morphine Nembutal Percocet 7.5/325 Social Hx Alcohol Risk Assessment: Denies Alcohol Use; Details: Use: Never. Substance Abuse Risk Assessment: Denies Substance Abuse Tobacco Risk Assessment: Denies Tobacco Use; Details: Tobacco Use: Former smoker- quit 1960. Type: Cigarettes. Family Medical Hx Mother (): High blood pressure; Hypercholesterolemia; Hypertension; Stroke Father (): Heart attack; Heart disease; High blood pressure; Hypercholesterolemia Sister: Blood clot Code Status Code Status - Ordered -- 02/12/22 23:16:00 EST, Full Code, Constant Order I Wero Johnston LPN, am scribing for Vera Hager NP, in the presence of Vera Hager. I Vera Hager NP, personally performed the services described in this documentation, as described by Wero Johnston LPN in my presence and it is both accurate and complete. This document is transcribed using voice recognition software may contain typographical errors. Digitally Signed by VERA HAGER on 02/16/2022 06:33 PM [facility] [id number] Note Date of Service February 15, 2022 Chief Complaint Cough Subjective 81-year-old female with past medical history significant for chronic bronchitis, chronic diastolic congestive heart failure, hypertension, hypothyroidism who presented with shortness of breath, productive cough, and wheezing. Patient is acutely hypoxic at presentation saturating 80% on room air. Patient positive rapid influenza A. Patient admitted for acute toxic respiratory failure with influenza A infection and concern for bronchospasm with possible asthma/COPD exacerbation. On evaluation today, patient resting comfortably. She continues to feel short of breath and a productive cough with green sputum. No hemoptysis. No fevers or chills. Patient indicates that she feels worse today with generalized malaise and productive cough. Patient also required being placed back on oxygen. No chest pain. No other acute events or night. Objective Vitals and Measurements T: 36.7 C (Oral) HR: 84 RR: 19 BP: 141/74 SpO2: 94% Intake and Output 7AM Yesterday to 7AM Today Intake and Output (Last 24 hours) Intake Oral Intake 120.00 Output Total Summary Total Intake 120.00 Total Output 0.00 Fluid Balance 120.00 Physical Exam General Appearance: Alert, oriented Head: Normocephalic, atraumatic EENT: PERRLA, EOMI. Neck: Supple, no JVD Cardiac: Regular rate and rhythm. Normal S1/S2. No murmurs appreciated. Lungs: Diffuse wheezing appreciated bilaterally Abdomen: Soft, nontender, nondistended. BS *4. Extremities: trace LE edema. Neurological: AO*3, CN 2-12 intact. Skin: No excoriations, lacerations Weight Dosing Weight: 102.3 kg (02/12/22) Dosing Weight: 102.3 kg (02/12/22) Medications Medications (21) Active Scheduled: (16) albuterol - ipratropium 2.5 mg-0.5 mg/3 mL Inhal Lydia UD 3 mL, Inhalation, QIDRT aspirin 325 mg EC 325 mg 1 tab(s), Oral, qDay cefTRIAXone IVP syringe 2 gram(s) 20 mL, IV Push (INT), qDay duloxetine [address] Capsule 20 mg 1 cap(s), Oral, qDay fluticasone nasal 0.05 mg/inh Shady Side 50 mcg 1 spray(s), Nostril, each, BID furosemide 20 mg tablet 20 mg 1 tab(s), Oral, qDay furosemide 20 mg/2 mL vial 20 mg 2 mL, IV Push, Once heparin 5,000 units/mL (1 mL) vial 5,000 unit(s) 1 mL, Subcutaneous, q8h hydrochlorothiazide 25 mg tablet 25 mg 1 tab(s), Oral, qDay hydroxyzine pamoate 50 mg capsule 50 mg 1 cap(s), Oral, QID labetalol 200 mg Tablet 200 mg 1 tab(s), Oral, qDay levothyroxine 175 mcg tablet 175 mcg 1 tab(s), Oral, qDay mirabegron 50 mg ER tablet 50 mg 1 tab(s), Oral, qDay oseltamivir 75 mg capsule 75 mg 1 cap(s), Oral, BID pantoprazole 20 mg EC tablet 20 mg 1 tab(s), Oral, qDayAC predniSONE 20 mg tablet 60 mg 3 tab(s), Oral, qDayM Continuous: (0) PRN: (5) acetaminophen 325 mg Tablet 650 mg 2 tab(s), Oral, q6hr albuterol 0.083% Soln UD (2.5mg/3 mL) 2.5 mg 3 mL, Inhalation, q4hRT melatonin 3 mg tablet 3 mg 1 tab(s), Oral, qHS pseudoephedrine 60 mg tablet 60 mg 1 tab(s), Oral, q6h tramadol 50 mg Tablet 50 mg 1 tab(s), Oral, q6h Lab Results 02/15 05:18 WBC: 8.9 Hgb: 13.4 Hct: 39.8 Platelet: 105 L Neutrophil %: 77.9 H Glucose Level: 97 Sodium Level: 136 Potassium Level: 4.4 BUN: 21.0 Creatinine Lvl (s): 0.71 02/14 04:42 WBC: 10.1 Hgb: 13.8 Hct: 41.2 Platelet: 118 L Neutrophil %: 86.5 H Glucose Level: 118 H Sodium Level: 137 Potassium Level: 4.5 BUN: 23.0 H Creatinine Lvl (s): 0.68 Assessment/Plan Acute hypoxic respiratory failure Strep pneumoniae pneumonia Influenza A infection Hypokalemia Chronic diastolic dysfunction Hypertension Hypothyroidism Patient presents with acute hypoxic respiratory failure likely secondary to influenza A infection and exacerbation of asthma/COPD. Chest x-ray at presentation with mild streaky airspace opacities in the left lung base. Patient found to be positive for strep pneumoniae. She is positive for influenzaA. Continue patient on Tamiflu, IV ceftriaxone. Patient was transition from Solu- Medrol to prednisone today however she continues to have significant bronchospasm. Patient does also have noted trace lower extremity edema. Will give dose of IV Lasix today and resume home Lasix tomorrow. Time Spent >25 minutes with >50% of the time spent counseling patient and/or coordinating care. Discussed plan of care with patient and nursing. Patient declined me calling anyone at this time Digitally Signed by NIKOLAY ARANDA MD on 02/15/2022 05:47 PM [id number] Note Date of Service February 14, 2022 Chief Complaint Shortness of breath Subjective 81-year-old female with past medical history significant for chronic bronchitis, chronic diastolic congestive heart failure, hypertension, hypothyroidism who presented with shortness of breath, productive cough, and wheezing. Patient is acutely hypoxic at presentation saturating 80% on room air. Patient positive rapid influenza A. Patient admitted for acute toxic respiratory failure with influenza A infection and concern for bronchospasm with possible asthma/COPD exacerbation. On evaluation today, patient is feeling better. Shortness of breath and productive cough have improved. Patient does continue to have productive cough and is bringing up green sputum. Denies any hemoptysis. Patient was weaned to room air today. She still is having some dyspnea on exertion but certainly improved. No fevers or chills. No other acute events overnight. Objective Vitals and Measurements T: 36.4 C (Oral) TMIN: 36.4 C (Oral) TMAX: 37.1 C (Oral) HR: 82 RR: 18 BP: 143/80 SpO2: 92% Intake and Output 7AM Yesterday to 7AM Today Intake and Output (Last 24 hours) Intake Oral Intake 600.00 Output Stool Count 1.00 Urine Count 2.00 Total Summary Total Intake 600.00 Total Output 0.00 Fluid Balance 600.00 Physical Exam General Appearance: Alert, oriented Head: Normocephalic, atraumatic EENT: PERRLA, EOMI. Neck: Supple, no JVD Cardiac: Regular rate and rhythm. Normal S1/S2. No murmurs appreciated. Lungs: Diffuse wheezing appreciated Abdomen: Soft, nontender, nondistended. BS *4. Extremities: No LE edema. Neurological: AO*3, CN 2-12 intact. Skin: No excoriations, lacerations Weight Dosing Weight: 102.3 kg (02/12/22) Dosing Weight: 102.3 kg (02/12/22) Medications Medications (17) Active Scheduled: (13) albuterol - ipratropium 2.5 mg-0.5 mg/3 mL Inhal Lydia UD 3 mL, Inhalation, QIDRT aspirin 325 mg EC 325 mg 1 tab(s), Oral, qDay cefTRIAXone IVP syringe 2 gram(s) 20 mL, IV Push (INT), qDay duloxetine [address] Capsule 20 mg 1 cap(s), Oral, qDay fluticasone nasal 0.05 mg/inh Shady Side 50 mcg 1 spray(s), Nostril, each, BID heparin 5,000 units/mL (1 mL) vial 5,000 unit(s) 1 mL, Subcutaneous, q8h hydroxyzine pamoate 50 mg capsule 50 mg 1 cap(s), Oral, QID labetalol 200 mg Tablet 200 mg 1 tab(s), Oral, qDay levothyroxine 175 mcg tablet 175 mcg 1 tab(s), Oral, qDay methylPREDNISolone succ 40mg (40 mg/1mL) after dilution 40 mg 1 mL, IV Push, q8h mirabegron 50 mg ER tablet 50 mg 1 tab(s), Oral, qDay oseltamivir 75 mg capsule 75 mg 1 cap(s), Oral, BID pantoprazole 20 mg EC tablet 20 mg 1 tab(s), Oral, qDayAC Continuous: (0) PRN: (4) acetaminophen 325 mg Tablet 650 mg 2 tab(s), Oral, q6hr albuterol 0.083% Soln UD (2.5mg/3 mL) 2.5 mg 3 mL, Inhalation, q4hRT melatonin 3 mg tablet 3 mg 1 tab(s), Oral, qHS tramadol 50 mg Tablet 50 mg 1 tab(s), Oral, q6h Lab Results 02/14 04:42 WBC: 10.1 Hgb: 13.8 Hct: 41.2 Platelet: 118 L Neutrophil %: 86.5 H Glucose Level: 118 H Sodium Level: 137 Potassium Level: 4.5 BUN: 23.0 H Creatinine Lvl (s): 0.68 Assessment/Plan Acute hypoxic respiratory failure Strep pneumoniae pneumonia Influenza A infection Hypokalemia Chronic diastolic dysfunction Hypertension Hypothyroidism Patient presents with acute hypoxic respiratory failure likely secondary to influenza A infection and exacerbation of asthma/COPD. Chest x-ray at presentation with mild streaky airspace opacities in the left lung base. Patient found to be positive for strep pneumoniae. She is positive for influenzaA. Continue patient on Tamiflu, IV ceftriaxone. Patient has been on IV Solu-Medrol. Patient does continue to have some bronchospasm but improved. Respiratory status improved and patient was weaned from oxygen. Will transition to oral prednisone tomorrow. If respiratory status remains stable will likely home tomorrow with home health aide. Time Spent >25 minutes with >50% of the time spent counseling patient and/or coordinating care. Discussed plan of care with patient and nursing. Patient declined me calling anyone at this time. Digitally Signed by NIKOLAY ARANDA MD on 02/14/2022 07:48 PM [facility] [id number] Note Date of Service February 13, 2022 Chief Complaint Shortness of breath Subjective 81-year-old female with past medical history significant for chronic bronchitis, chronic diastolic congestive heart failure, hypertension, hypothyroidism who presented with shortness of breath, productive cough, and wheezing. Patient is acutely hypoxic at presentation saturating 80% on room air. Patient positive rapid influenza A. Patient admitted for acute toxic respiratory failure with influenza A infection and concern for bronchospasm with possible asthma/COPD. On evaluation today, patient indicates she is feeling better. She continues her shortness of breath. Patient endorses productive cough. No fevers or chills. Patient indicates that shortness of breathhas improved since presentation. No chest pain. No other acute events overnight. Objective Vitals and Measurements T: 36.4 C (Oral) TMIN: 36.4 C (Oral) TMAX: 36.8 C (Oral) HR: 90 RR: 20 BP: 111/70 SpO2: 95% HT: 155cm WT: 102.3 kg BMI: 42.58 Intake and Output 7AM Yesterday to 7AM Today Intake and Output (Last 24 hours) Intake Oral Intake 720.00 Output Stool Count 1.00 Urine Count 2.00 Diaper Count 2.00 Total Summary Total Intake 720.00 Total Output 0.00 Fluid Balance 720.00 Physical Exam General Appearance: Alert, oriented, no acute distress Head: Normocephalic, atraumatic EENT: PERRLA, EOMI. Neck: Supple, no JVD Cardiac: Regular rate and rhythm. Normal S1/S2. No murmurs appreciated. Lungs: Diffuse wheezing appreciated Abdomen: Soft, nontender, nondistended. BS *4. Extremities: No LE edema. Neurological: AO*3, CN 2-12 intact. Skin: No excoriations, lacerations, rash, or erythema Weight Dosing Weight: 102.3 kg (02/12/22) Dosing Weight: 102.3 kg (02/12/22) Medications Medications (16) Active Scheduled: (13) albuterol - ipratropium 2.5 mg-0.5 mg/3 mL Inhal Lydia UD 3 mL, Inhalation, QIDRT aspirin 325 mg EC 325 mg 1 tab(s), Oral, qDay cefTRIAXone IVP syringe 2 gram(s) 20 mL, IV Push (INT), qDay duloxetine [address] Capsule 20 mg 1 cap(s), Oral, qDay fluticasone nasal 0.05 mg/inh Shady Side 50 mcg 1 spray(s), Nostril, each, BID heparin 5,000 units/mL (1 mL) vial 5,000 unit(s) 1 mL, Subcutaneous, q8h hydroxyzine pamoate 50 mg capsule 50 mg 1 cap(s), Oral, QID labetalol 200 mg Tablet 200 mg 1 tab(s), Oral, qDay levothyroxine 175 mcg tablet 175 mcg 1 tab(s), Oral, qDay methylPREDNISolone succ 40mg (40 mg/1mL) after dilution 40 mg 1 mL, IV Push, q8h mirabegron 50 mg ER tablet 50 mg 1 tab(s), Oral, qDay oseltamivir 75 mg capsule 75 mg 1 cap(s), Oral, BID pantoprazole 20 mg EC tablet 20 mg 1 tab(s), Oral, qDayAC Continuous: (0) PRN: (3) acetaminophen 325 mg Tablet 650 mg 2 tab(s), Oral, q6hr albuterol 0.083% Soln UD (2.5mg/3 mL) 2.5 mg 3 mL, Inhalation, q4hRT melatonin 3 mg tablet 3 mg 1 tab(s), Oral, qHS Lab Results 02/13 05:12 WBC: 4.9 Hgb: 13.6 Hct: 40.6 Platelet: 87 L Neutrophil %: 71.9 Glucose Level: 151 H Sodium Level: 138 Potassium Level: 4.0 BUN: 22.0 Creatinine Lvl (s): 0.70 Assessment/Plan Acute hypoxic respiratory failure Strep pneumoniae pneumonia Influenza A infection Hypokalemia Chronic diastolic dysfunction Hypertension Hypothyroidism Patient presents with acute hypoxic respiratory failure likely secondary to influenza A infection and exacerbation of asthma/COPD. Chest x-ray at presentation with mild streaky airspace opacities in the left lung base. Patient found to be positive for strep pneumoniae. She is positive for influenzaA. Patient currently on Tamiflu. IV ceftriaxone added for coverage of strep pneumonia. She also on IV steroids. Patient continues have diffuse wheezing appreciated bilaterally. Continue patient on current regimen. Will reassess tomorrow and potentially decrease steroid frequency. Time Spent >25 minutes with >50% of the time spent counseling patient and/or coordinating care. Discussed plan of care with patient and nursing. Digitally Signed by NIKOLAY ARANDA MD on 02/13/2022 07:42 PM [facility] [id number] History and physical note Date of Service February 12, 2022 Chief Complaint patient states that she has had a cough and was on antibiotics. SHe was done with them yesterday and is still coughing and feeling SOB History of Present Illness A 81 years old female with past medical history significant for chronic diastolic heart failure, chronic bronchitis, dyspnea on exertion, hypertension, hypothyroidism, allergic rhinitis, GERD, urinary incontinence presented to [facility] on February 12, 2022 with a chief concern of shortness of breath, wheezing and cough for the past 1 week or so. Vital signs on admission were significant for hypoxia with oxygen saturation of 88% on room air. Labs on admission were significant for white count of 4000, potassium of 2.9, and positive point of contact rapid molecular influenza A test. Chest x-ray on admission revealed mild left atelectasis. EKG on admission revealed sinus rhythm. Patient received breathing treatments, IV Solu-Medrol 125 mg, potassium replacement and Tamiflu 75 mg at [facility] prior to my evaluation. Patient was accepted by my colleague during the day, history obtained from day team checkout, review of medical records and by talking to the patient. Review of Systems Review of systems are negative except as mentioned in HPI. Physical Exam Vitals and Measurements T: 36.8 C (Oral) HR: 78 RR: 18 BP: 140/73 SpO2: 90% HT: 155 cm WT: 102.3 kg BMI: 42.58 Weight Dosing Weight: 102.3 kg (02/12/22) Dosing Weight: 102.3 kg (02/12/22) General Appearance: Patient was in mild to moderate distress at the time of my evaluation. Head: Atraumatic and normocephalic EENT: EOMI, PERRLA, no oropharyngeal erythema, no tonsillar exudates, no conjunctival injection. sclera anicteric. Neck: No thyromegaly, no cervical lymphadenopathy, trachea midline Cardiac: S1 and S2 normal. RRR. No murmurs, rubs, or gallops. No JVD. No hepatojugular reflex. Lungs: Bilateral wheezing on auscultation Abdomen: Soft, nontender, nondistended. Normoactive bowel sounds. No rebound or guarding. Negative Marx's sign. No hepatosplenomegaly. Musculoskeletal: Full range of motion upper and lower extremities. No CVA tenderness. Extremities: No lower extremity pitting edema. 2+ radial and pedal pulses bilaterally. Neurological: No gross motor deficits Skin: No abrasions, scars, or hematomas on visible skin. No cyanosis. No purulent discharge. Psychiatric: Alert and oriented, in mild to moderate distress. Lab Results Lab Performed By: Paul Sapp LPN (01/23/22 15:34:00) Lab Performing Location: [facility] (01/23/22 15:34:00) Perf Loc - POCT: Tested at AM (02/12/22 15:46:00) Performing Instrument - POCT: IDNOW2 (02/12/22 15:46:00) Sodium - POC: 141 mEq/L (02/12/22 11:48:00) Potassium - POC: 2.9 mEq/L Low (02/12/22 11:48:00) Chloride - POC: 100 mEq/L (02/12/22 11:48:00) Calcium Level Ionized (POC): 1.18 mmol/L (02/12/22 11:48:00) Glucose - POC: 92 mg/dL (02/12/22 11:48:00) CO2 (POC): 31 mEq/L (02/12/22 11:48:00) Electrolyte Balance (POC): 11 mEq/L (02/12/22 11:48:00) BUN (POC): 21 mg/dL (02/12/22 11:48:00) Creatinine (POC): 0.87 mg/dL (02/12/22 11:48:00) BUN/Creatinine Ratio (POC): 24.6 ratio High (02/12/22 11:48:00) Est GFR (POC): >60 (02/12/22 11:48:00) Est GFR Non- (POC): >60 (02/12/22 11:48:00) B-Natriuretic Peptide (POC): 41 pg/mL (02/12/22 12:08:00) Troponin I (POC): <0.05 (02/12/22 12:03:00) WBC (POC): 4.17 10^3/mcL Low (02/12/22:34:00) RBC (POC): 4.27 10^6/mcL Low (02/12/22:34:00) Hemoglobin (POC): 12.8 G/dL (02/12/22:34:00) Hematocrit (POC): 37.8 % (02/12/22:34:00) MCV (POC): 88.5 fL (02/12/22:34:00) MCH (POC): 30 pg (02/12/22 11:34:00) MCHC (POC): 33.9 G/dL (02/12/22:34:00) RDW (POC): 14.9 % (02/12/22 11:34:00) Platelet (POC): 72 10^3/mcL Low (02/12/22:34:00) MPV (POC): 9.3 fL (02/12/22:34:00) Neutrophil % (POC): 53.7 % (02/12/22 11:34:00) Lymphocyte % (POC): 33.6 % (02/12/22 11:34:00) Monocyte % (POC): 8.9 % (02/12/22:34:00) Eosinophil % (POC): 3.4 % (02/12/22 11:34:00) Basophil % (POC): 0.2 % (02/12/22 11:34:00) Immature Granulocyte (POC): 0.2 % (02/12/22:34:00) Neutrophil, Absolute (POC): 2.24 10^3/mcL Low (02/12/22 11:34:00) Lymphocyte, Absolute (POC): 1.4 10^3/mcL (02/12/22 11:34:00) Monocyte, Absolute (POC): 0.37 10^3/mcL (02/12/22 11:34:00) Eosinophil, Absolute (POC): 0.14 10^3/mcL (02/12/22 11:34:00) Basophil, Absolute (POC): 0.01 10^3/mcL (02/12/22 11:34:00) Imm Granulocyte, Absolute (POC): 0.01 10^3/mcL (02/12/22 11:34:00) D-dimer (POC): 243 ng/mL D-DU (02/12/22 14:45:00) Urine Color Urine Dipstick: Dark Yellow (01/23/22 15:34:00) Urine Appearance Urine Dipstick: Cloudy (Abnormal) (01/23/22 15:34:00) Glucose Urine Dipstick: Negative (01/23/22 15:34:00) Bilirubin Urine Dipstick: Negative (01/23/22 15:34:00) Ketones Urine Dipstick: Negative (01/23/22 15:34:00) Specific [place] Urine Dipstick: 1.010 (01/23/22 15:34:00) Blood Urine Dipstick: Trace (Abnormal) (01/23/22 15:34:00) pH Urine Dipstick: 8.5 (01/23/22 15:34:00) Protein Urine Dipstick: 3+ (300 mg/dl) (Abnormal) (01/23/22 15:34:00) Urobilinogen Urine Dipstick: 4 mg/dl (Abnormal) (01/23/22 15:34:00) Nitrite Urine Dipstick: Negative (01/23/22 15:34:00) Leukocytes Urine Dipstick: 2+ Moderate (Abnormal) (01/23/22 15:34:00) Rapid Molecular Influenza A (POC): Positive.1 Abnormal (02/12/22 15:46:00) Rapid Molecular Influenza B (POC): Negative. (02/12/22 15:46:00) Covid-19 (POC): Negative. (02/12/22 15:38:00) Imaging Results and Diagnostics XR Chest 1 View Result Date: February 12, 2022 Verified By: SANDRA MILES MD CLINICAL STATEMENT: IMPRESSION: Mild left atelectasis, otherwise clear lungs. EKG EC02/12/22: Sinus rhythm...normal P axis, V-rate 50- 99 Short WI interval...WI <110mS Nonspecific IVCD with LAD...QRSd >120mS & LAD Left ventricular hypertrophy...multiple LVH criteria Compared to previous EKG of (date), no significant changes Electronic Signature: ERICKA ZALDIVAR MD 02/12/2022 17:43:13 Assessment/Plan Acute respiratory failure with hypoxia: Oxygen saturation of 88% room air Continue oxygen via nasal cannula Likely due to influenza A infection triggering bronchoconstriction Influenza A infection: Patient presented with hypoxia, shortness of breath Point of contact influenza A positive at [facility] Patient was wheezing on my evaluation likely due to virus induced bronchoconstriction Breathing treatments, IV steroids Tamiflu 75 mg twice daily Hypokalemia: Potassium of 2.9 on admission Replacing Chronic diastolic heart failure: Hold home medication of Lasix hydrochlorothiazide due to hypokalemia on admission Hypertension: Resume home medication of labetalol orally Hypothyroidism: Resume home medication of levothyroxine Allergic rhinitis: Fluticasone nasal spray GERD: Oral pantoprazole Urine incontinence: Resume home medication of oral mirabegron DVT prophylaxis: Bilateral SCDs Heparin 5000 subcu every 8 hours Note was written using [employer] belting inspector software. Some of the meaning of the words and sentences might have changed during belting inspector, if there was ever some confusion about the meaning of some sentences, please do not hesitate to contact me. Problem List/Past Medical History Ongoing Abnormal EKG BMI 40.0-44.9, adult Bronchitis Cerumen impaction Chronic back pain greater than 3 months duration Chronic bronchitis Chronic cellulitis Chronic depression COPD (chronic obstructive pulmonary disease) Diarrhea Diastolic heart failure Dizziness PIZARRO (dyspnea on exertion) Dyspnea Edema Exertional shortness of breath Frequency-urgency syndrome Frequent UTI GERD (gastroesophageal reflux disease) HTN (hypertension) Hypokalemia Hypothyroidism Leg swelling Medicare annual wellness visit, subsequent Morbid obesity Needs flu shot Nocturia Osteoporosis Osteoporosis monitoring declined Palpitations Recurrent urinary tract infection Sciatica Skin ulceration Urinary incontinence Historical Acute bronchitis Procedure/Surgical History Echocardiogram: 09/11/21 Esophagogastroduodenoscopy and dilation of esophageal stricture: 01/21/18 Dental: 2016 Total knee replacement L: 2014 Carpal tunnel release: 2000 Carpal tunnel release: 1989 Tonsils and adenoids: 1945 Arthroplasty of shoulder Arthroscopy of knee History of lumbar fusion H/O: hysterectomy History of total replacement of right hip joint Cholecystectomy CE - Cataract extraction Spinal fusion Neuroplasty and/or transposition; median nerve at carpal tunnel Medications Home Medications (32) Active albuterol-ipratropium 2.5 mg-0.5 mg/3 mL inhalation solution 3 mL, Inhalation, QID aspirin 325 mg oral delayed release tablet 325 mg = 1 tab(s), Oral, qDay baclofen 10 mg oral tablet See Instructions Benefiber oral powder for reconstitution 5 mL, PRN, Oral, BID cephalexin 250 mg oral capsule 250 mg = 1 cap(s), Oral, Daily ciprofloxacin 250 mg oral tablet See Instructions clotrimazole 1% topical cream 1 vidhya, PRN, Topical, BID doxycycline hyclate 100 mg oral capsule 100 mg = 1 cap(s), Oral, BID DULoxetine 20 mg oral delayed release capsule 20 mg = 1 cap(s), Oral, qDay Eucerin topical cream 1 vidhya, PRN, Topical, BID flax seed oil 1000 mg oral capsule 1,000 mg = 1 cap(s), Oral, qDay Flovent HFA 44 mcg/inh inhalation aerosol 2 inh, Inhalation, BID furosemide 20 mg oral tablet 20 mg = 1 tab(s), Oral, qDay hydroCHLOROthiazide 25 mg oral tablet 1 tab(s), Oral, qDay hydrOXYzine pamoate 50 mg oral capsule 50 mg = 1 cap(s), Oral, QID labetalol 200 mg oral tablet 1 tab(s), Oral, qDay levothyroxine 175 mcg (0.175 mg) oral tablet 175 mcg = 1 tab(s), Oral, qDay Magnesium Chloride With Calcium 64 mg-112 mg oral delayed release tablet 1 tab(s), Oral, BID metoclopramide 5 mg oral tablet See Instructions Mobic 15 mg oral tablet 15 mg = 1 tab(s), PRN, Oral, qDay Myrbetriq 25 mg oral tablet, extended release 2 tab(s), Oral, qDay NexIUM 20 mg, Oral, qDay omega-3 fish oil 1000 mg oral capsule 1,000 mg = 1 cap(s), Oral, qDay omeprazole 20 mg oral delayed release capsule 1 cap(s), Oral, qHS potassium chloride 10 mEq oral capsule, extended release 1 cap(s), Oral, BID predniSONE 50 mg oral tablet 50 mg = 1 tab(s), Oral, qDay Prescription MISCellaneous See Instructions Prevagen tablet 1 tab(s), Oral, Daily Probiotic Proventil HFA MDI (90 mcg/inh) inhalation aerosol 2 puff(s), PRN, Inhalation, QID Tylenol Extra Strength 500 mg oral tablet 1,000 mg = 2 tab(s), PRN, Oral, q6h Vitamin D3 1000IU, Oral, qDay Allergies Ambien Aspartame (non-codified) Ativan Nembutal Percocet 7.5/325 codeine morphine Social History Alcohol - Denies Alcohol Use, 01/21/2018 Use: Never., 08/28/2020 Substance Abuse - Denies Substance Abuse, 01/21/2018 Tobacco - Denies Tobacco Use, 01/21/2018 Tobacco Use: Former smoker- quit 1960. Type: Cigarettes., 08/13/2018 Family History Bladder cancer: Negative: Mother, Father, Sister, Brother, Daughter, Son and Grandparent. Blood clot: Sister. Heart attack: Father. Heart disease: Father. High blood pressure: Mother and Father. Hypercholesterolemia: Mother and Father. Hypertension: Mother. Kidney stone: Negative: Mother, Father, Sister, Brother, Daughter, Son and Grandparent. Renal cancer: Negative: Mother, Father, Sister, Brother, Daughter, Son and Grandparent. Stroke: Mother. Immunizations pneumococcal 13-valent conjugate vaccine: 0.5 mL (12/07/18) pneumococcal 23-valent vaccine(Pneumovax: 0 unknown unit (11/25/05) SARS-CoV-2 (COVID-19) mRNA-1273 vaccine: 0.25 unknown unit (02/28/21) SARS-CoV-2 (COVID-19) mRNA-1273 vaccine: 0 unknown unit (07/04/20) SARS-CoV-2 (COVID-19) mRNA-1273 vaccine: 0 unknown unit (06/01/20) zoster vaccine, inactivated: 0.5 unknown unit (01/25/21) Code Status Code Status - Ordered -- 02/12/22 23:16:00 EST, Full Code, Constant Order Digitally Signed by LORIN RODRIGUEZ MD on 02/12/2022 11:29 PM [id number] Note Chief Complaint Transition Plan. Transitional Action Points Patient complains of weakness from her baseline I am going to order PT/OT services She is from home alone. Due to her acute illness, high risk. I would anticipate with recovery she will be able to transition back home independently. Denies falls Therapy services consult in place due to wanting to keep patient strength before transitioning homealone Assessment/Plan Influenza A cough Weakness Malaise Readmission Risk Points Age greater than 75 Hypoxia HTN CHF History of Present Illness 81-year-old female here following cough respiratory failure due to influenza A and hypokalemia. Madelynhas had no hospitalizations in the past year was at home prior to admission, denies falls, denies using equipment, was independent ADLs, and driving. She does state that she is feeling very weak. Review of Symptoms General: Denies fever chills HEENT: Denies blurry vision, headache, congestion Respiratory: Denies shortness of breath or cough Cardio: Denies chest pain or palpitations GI: Denies abdominal pain or change in appetite Musculoskeletal: Feels pretty weak Neuro: Denies dizziness or confusion Psych: Denies depression or anxiety Physical exam General: No acute distress, sits in chair, ill, debilitated, obese HEENT: Oral mucosa moist, eyes following movement Respiratory: Nasal cannula in place Musculoskeletal: Weakness present Neurological: No tremors or focal deficit Psych: Mood cooperative, alert and oriented Vitals Signs(Last 24 hrs)__Last Charted Minimum Maximum Temp36.8(FEB 12 22:16)36.8(FEB 12 22:16)36.8(FEB 12 22:16) Resp Rate18(FEB 12 22:16)15(FEB 12 12:26)18(FEB 12 11:16) SBPH 140(FEB 12 22:16)112(FEB 12 19:48)H 152(FEB 12 13:30) DBP73(FEB 12 22:16)73(FEB 12 22:16)H 95(FEB 12 11:16) Problem List/ Past Medical History Abnormal EKG BMI 40.0-44.9, adult Bronchitis COPD (chronic obstructive pulmonary disease) Cerumen impaction Chronic back pain greater than 3 months duration Chronic bronchitis Chronic cellulitis Chronic depression PIZARRO (dyspnea on exertion) Diarrhea Diastolic heart failure Dizziness Dyspnea Edema Exertional shortness of breath Frequency-urgency syndrome Frequent UTI GERD (gastroesophageal reflux disease) HTN (hypertension) Hypokalemia Hypothyroidism Leg swelling Medicare annual wellness visit, subsequent Morbid obesity Needs flu shot Nocturia Osteoporosis Osteoporosis monitoring declined Palpitations Recurrent urinary tract infection Sciatica Skin ulceration Urinary incontinence Acute bronchitis Procedure/ Surgical History Echocardiogram: 09/11/21 Esophagogastroduodenoscopy and dilation of esophageal stricture: 01/21/18 Dental: 2016 Total knee replacement L: 2013 Carpal tunnel release: 2000 Carpal tunnel release: 1989 Tonsils and adenoids: 1945 Arthroplasty of shoulder Arthroscopy of knee History of lumbar fusion H/O: hysterectomy History of total replacement of right hip joint Cholecystectomy CE - Cataract extraction Spinal fusion Neuroplasty and/or transposition; median nerve at carpal tunnel Medication List Active Medications Ordered acetaminophen: 650 mg, 2 tab(s), Oral, q6hr, PRN: Pain, scale 1-10. albuterol: 2.5 mg, 3 mL, Inhalation, q4hRT, PRN: Shortness of breath or wheezing. albuterol-ipratropium: 3 mL, Inhalation, QIDRT. aspirin: 325 mg, 1 tab(s), Oral, qDay. DULoxetine: 20 mg, 1 cap(s), Oral, qDay. fluticasone nasal: 50 mcg, 1 spray(s), Nostril, each, BID. heparin: 5,000 unit(s), 1 mL, Subcutaneous, q8h. labetalol: 200 mg, 1 tab(s), Oral, qDay. levothyroxine: 175 mcg, 1 tab(s), Oral, qDay. melatonin: 3 mg, 1 tab(s), Oral, qHS, PRN: Sleep. methylPREDNISolone: 40 mg, 1 mL, IV Push, q8h. mirabegron: 50 mg, 1 tab(s), Oral, qDay. oseltamivir: 75 mg, 1 cap(s), Oral, BID. pantoprazole: 20 mg, 1 tab(s), Oral, qDayAC. Prescribed albuterol: 2 puff(s), Inhalation, QID, for 90 day(s), PRN: as needed for wheezing, 3 EA, 1 Refill(s). albuterol-ipratropium: 3 mL, Inhalation, QID, 30 EA, 3 Refill(s). baclofen: See Instructions, TAKE 1 TABLET BY MOUTH THREE TIMES DAILY, 90 tab(s), 0 Refill(s). cephalexin: 250 mg, 1 cap(s), Oral, Daily, UTI prophylaxis, 90 cap(s), 1 Refill(s). ciprofloxacin: See Instructions, TAKE 1 TABLET BY MOUTH EVERY 12 HOURS FOR 7 DAYS, 14 tab(s), 10 Refill(s). clotrimazole topical: 1 vidhya, Topical, BID, PRN: Rash, 30 gram(s), 3 Refill(s). DME: See Instructions, [facility]--aplly once daily to wound., 1 EA, 1 Refill(s). doxycycline: 100 mg, 1 cap(s), Oral, BID, for 7 day(s), 14 cap(s), 0 Refill(s). DULoxetine: 20 mg, 1 cap(s), Oral, qDay, 30 cap(s), 0 Refill(s). emollients, topical: 1 vidhya, Topical, BID, PRN: as needed for dry skin, 120 gram(s), 0 Refill(s). fluticasone: 2 inh, Inhalation, BID, 31.8 gram(s), 3 Refill(s). furosemide: 20 mg, 1 tab(s), Oral, qDay, for 90 day(s), 90 tab(s), 6 Refill(s). herbal/nutritional product: 1 tab(s), Oral, Daily, 30 tab(s), 0 Refill(s). hydroCHLOROthiazide: 1 tab(s), Oral, qDay, 90 tab(s), 3 Refill(s). hydrOXYzine: 50 mg, 1 cap(s), Oral, QID, 360 cap(s), 1 Refill(s). labetalol: 1 tab(s), Oral, qDay, 90 tab(s), 3 Refill(s). levothyroxine: 175 mcg, 1 tab(s), Oral, qDay, for 30 day(s), 30 tab(s), 1 Refill(s). meloxicam: 15 mg, 1 tab(s), Oral, qDay, PRN: Joint pain, 30 tab(s), 2 Refill(s). metoclopramide: See Instructions, TAKE 1 TABLET BY MOUTH 3 TIMES DAILY (30 MINUTES BEFORE 2 MEALS AND AT BEDTIME)., 270 tab(s), 1 Refill(s). mirabegron: 2 tab(s), Oral, qDay, 180 tab(s), 3 Refill(s). omeprazole: 1 cap(s), Oral, qHS, 90 cap(s), 3 Refill(s). potassium chloride: 1 cap(s), Oral, BID, 180 cap(s), 3 Refill(s). predniSONE: 50 mg, 1 tab(s), Oral, qDay, for 5 day(s), 5 tab(s), 0 Refill(s). wheat dextrin: 5 mL, Oral, BID, PRN: for constipation, 155 gram(s), 0 Refill(s). Documented acetaminophen: 1,000 mg, 2 tab(s), Oral, q6h, PRN: as needed for fever, 0 Refill(s). aspirin: 325 mg, 1 tab(s), Oral, qDay, 0 Refill(s). calcium carbonate-magnesium chloride: 1 tab(s), Oral, BID, 60 tab(s), 0 Refill(s). cholecalciferol: 1000IU, Oral, qDay, 0 Refill(s). esomeprazole: 20 mg, Oral, qDay, 0 Refill(s). herbal/nutritional product: 1 qd, 0 Refill(s). herbal/nutritional product: 1,000 mg, 1 cap(s), Oral, qDay, 0 Refill(s). omega-3 polyunsaturated fatty acids: 1,000 mg, 1 cap(s), Oral, qDay, 90 cap(s), 0 Refill(s). Medications Inactivated in the Last 72 Hours albuterol-ipratropium: 3 mL, Inhalation, Once. albuterol-ipratropium: Miscellaneous, Once. fluticasone: 2 inh, Inhalation, BID. methylPREDNISolone: 125 mg, 2 mL, IV Push, Once. oseltamivir: 75 mg, 1 cap(s), Oral, Once. potassium bicarbonate: 40 mEq, 2 tab(s), Oral, Once. potassium bicarbonate: Miscellaneous, Once. potassium bicarbonate: Miscellaneous, Once. potassium bicarbonate: 50 mEq, 2 tab(s), Oral, Once. potassium chloride: 20 mEq, 100 mL, 100 mL/hr, IV Piggyback, Once. potassium chloride: 40 mEq, 250 mL, 62.5 mL/hr, IV Piggyback, Once. Allergies Ambien Aspartame (non-codified) Ativan codeine morphine Nembutal Percocet 7.5/325 Social HX Alcohol Risk Assessment: Denies Alcohol Use; Details: Use: Never. Substance Abuse Risk Assessment: Denies Substance Abuse Tobacco Risk Assessment: Denies Tobacco Use; Details: Tobacco Use: Former smoker- quit 1960. Type: Cigarettes. Family medical HX Mother (): High blood pressure; Hypercholesterolemia; Hypertension; Stroke Father (): Heart attack; Heart disease; High blood pressure; Hypercholesterolemia Sister: Blood clot Code Status Code Status - Ordered -- 02/12/22 23:16:00 EST, Full Code, Constant Order I Trini MCKINLEY, am scribing for Vera Hager NP, in the presence of Vera Hager NP, personally performed the services described in this documentation, as described by Trini MCKINLEY in my presence and it is both accurate and complete. This document transcribed using voice recognition software may contain typographical errors. Digitally Signed by VERA HAGER on 02/13/2022 12:51 PM [id number] History and physical note Date of Service February 12, 2022 Chief Complaint patient states that she has had a cough and was on antibiotics. SHe was done with them yesterday and is still coughing and feeling SOB History of Present Illness A 81 years old female with past medical history significant for chronic diastolic heart failure, chronic bronchitis, dyspnea on exertion, hypertension, hypothyroidism, allergic rhinitis, GERD, urinary incontinence presented to [facility] on February 12, 2022 with a chief concern of shortness of breath, wheezing and cough for the past 1 week or so. Vital signs on admission were significant for hypoxia with oxygen saturation of 88% on room air. Labs on admission were significant for white count of 4000, potassium of 2.9, and positive point of contact rapid molecular influenza A test. Chest x-ray on admission revealed mild left atelectasis. EKG on admission revealed sinus rhythm. Patient received breathing treatments, IV Solu-Medrol 125 mg, potassium replacement and Tamiflu 75 mg at [facility] prior to my evaluation. Patient was accepted by my colleague during the day, history obtained from day team checkout, review of medical records and by talking to the patient. Review of Systems Review of systems are negative except as mentioned in HPI. Physical Exam Vitals and Measurements T: 36.8 C (Oral) HR: 78 RR: 18 BP: 140/73 SpO2: 90% HT: 155 cm WT: 102.3 kg BMI: 42.58 Weight Dosing Weight: 102.3 kg (02/12/22) Dosing Weight: 102.3 kg (02/12/22) General Appearance: Patient was in mild to moderate distress at the time of my evaluation. Head: Atraumatic and normocephalic EENT: EOMI, PERRLA, no oropharyngeal erythema, no tonsillar exudates, no conjunctival injection. sclera anicteric. Neck: No thyromegaly, no cervical lymphadenopathy, trachea midline Cardiac: S1 and S2 normal. RRR. No murmurs, rubs, or gallops. No JVD. No hepatojugular reflex. Lungs: Bilateral wheezing on auscultation Abdomen: Soft, nontender, nondistended. Normoactive bowel sounds. No rebound or guarding. Negative Marx's sign. No hepatosplenomegaly. Musculoskeletal: Full range of motion upper and lower extremities. No CVA tenderness. Extremities: No lower extremity pitting edema. 2+ radial and pedal pulses bilaterally. Neurological: No gross motor deficits Skin: No abrasions, scars, or hematomas on visible skin. No cyanosis. No purulent discharge. Psychiatric: Alert and oriented, in mild to moderate distress. Lab Results Lab Performed By: Paul Sapp LPN (01/23/22 15:34:00) Lab Performing Location: [facility] (01/23/22 15:34:00) Perf Loc - POCT: Tested at AM (02/12/22 15:46:00) Performing Instrument - POCT: IDNOW2 (02/12/22 15:46:00) Sodium - POC: 141 mEq/L (02/12/22 11:48:00) Potassium - POC: 2.9 mEq/L Low (02/12/22 11:48:00) Chloride - POC: 100 mEq/L (02/12/22 11:48:00) Calcium Level Ionized (POC): 1.18 mmol/L (02/12/22 11:48:00) Glucose - POC: 92 mg/dL (02/12/22 11:48:00) CO2 (POC): 31 mEq/L (02/12/22 11:48:00) Electrolyte Balance (POC): 11 mEq/L (02/12/22 11:48:00) BUN (POC): 21 mg/dL (02/12/22 11:48:00) Creatinine (POC): 0.87 mg/dL (02/12/22 11:48:00) BUN/Creatinine Ratio (POC): 24.6 ratio High (02/12/22 11:48:00) Est GFR (POC): >60 (02/12/22 11:48:00) Est GFR Non- (POC): >60 (02/12/22 11:48:00) B-Natriuretic Peptide (POC): 41 pg/mL (02/12/22 12:08:00) Troponin I (POC): <0.05 (02/12/22 12:03:00) WBC (POC): 4.17 10^3/mcL Low (02/12/22 11:34:00) RBC (POC): 4.27 10^6/mcL Low (02/12/22 11:34:00) Hemoglobin (POC): 12.8 G/dL (02/12/22 11:34:00) Hematocrit (POC): 37.8 % (02/12/22 11:34:00) MCV (POC): 88.5 fL (02/12/22 11:34:00) MCH (POC): 30 pg (02/12/22 11:34:00) MCHC (POC): 33.9 G/dL (02/12/22 11:34:00) RDW (POC): 14.9 % (02/12/22 11:34:00) Platelet (POC): 72 10^3/mcL Low (02/12/22 11:34:00) MPV (POC): 9.3 fL (02/12/22 11:34:00) Neutrophil % (POC): 53.7 % (02/12/22 11:34:00) Lymphocyte % (POC): 33.6 % (02/12/22 11:34:00) Monocyte % (POC): 8.9 % (02/12/22 11:34:00) Eosinophil % (POC): 3.4 % (02/12/22 11:34:00) Basophil % (POC): 0.2 % (02/12/22 11:34:00) Immature Granulocyte (POC): 0.2 % (02/12/22 11:34:00) Neutrophil, Absolute (POC): 2.24 10^3/mcL Low (02/12/22 11:34:00) Lymphocyte, Absolute (POC): 1.4 10^3/mcL (02/12/22 11:34:00) Monocyte, Absolute (POC): 0.37 10^3/mcL (02/12/22 11:34:00) Eosinophil, Absolute (POC): 0.14 10^3/mcL (02/12/22 11:34:00) Basophil, Absolute (POC): 0.01 10^3/mcL (02/12/22 11:34:00) Imm Granulocyte, Absolute (POC): 0.01 10^3/mcL (02/12/22 11:34:00) D-dimer (POC): 243 ng/mL D-DU (02/12/22 14:45:00) Urine Color Urine Dipstick: Dark Yellow (01/23/22 15:34:00) Urine Appearance Urine Dipstick: Cloudy (Abnormal) (01/23/22 15:34:00) Glucose Urine Dipstick: Negative (01/23/22 15:34:00) Bilirubin Urine Dipstick: Negative (01/23/22 15:34:00) Ketones Urine Dipstick: Negative (01/23/22 15:34:00) Specific [place] Urine Dipstick: 1.010 (01/23/22 15:34:00) Blood Urine Dipstick: Trace (Abnormal) (01/23/22 15:34:00) pH Urine Dipstick: 8.5 (01/23/22 15:34:00) Protein Urine Dipstick: 3+ (300 mg/dl) (Abnormal) (01/23/22 15:34:00) Urobilinogen Urine Dipstick: 4 mg/dl (Abnormal) (01/23/22 15:34:00) Nitrite Urine Dipstick: Negative (01/23/22 15:34:00) Leukocytes Urine Dipstick: 2+ Moderate (Abnormal) (01/23/22 15:34:00) Rapid Molecular Influenza A (POC): Positive.1 Abnormal (02/12/22 15:46:00) Rapid Molecular Influenza B (POC): Negative. (02/12/22 15:46:00) Covid-19 (POC): Negative. (02/12/22 15:38:00) Imaging Results and Diagnostics XR Chest 1 View Result Date: February 12, 2022 Verified By: SANDRA MILES MD CLINICAL STATEMENT: IMPRESSION: Mild left atelectasis, otherwise clear lungs. EKG EC02/12/22: Sinus rhythm...normal P axis, V-rate 50- 99 Short WI interval...WI <110mS Nonspecific IVCD with LAD...QRSd >120mS & LAD Left ventricular hypertrophy...multiple LVH criteria Compared to previous EKG of (date), no significant changes Electronic Signature: ERICKA ZALDIVAR MD 02/12/2022 17:43:13 Assessment/Plan Acute respiratory failure with hypoxia: Oxygen saturation of 88% room air Continue oxygen via nasal cannula Likely due to influenza A infection triggering bronchoconstriction Influenza A infection: Patient presented with hypoxia, shortness of breath Point of contact influenza A positive at [facility] Patient was wheezing on my evaluation likely due to virus induced bronchoconstriction Breathing treatments, IV steroids Tamiflu 75 mg twice daily Hypokalemia: Potassium of 2.9 on admission Replacing Chronic diastolic heart failure: Hold home medication of Lasix hydrochlorothiazide due to hypokalemia on admission Hypertension: Resume home medication of labetalol orally Hypothyroidism: Resume home medication of levothyroxine Allergic rhinitis: Fluticasone nasal spray GERD: Oral pantoprazole Urine incontinence: Resume home medication of oral mirabegron DVT prophylaxis: Bilateral SCDs Heparin 5000 subcu every 8 hours Note was written using [employer] belting inspector software. Some of the meaning of the words and sentences might have changed during belting inspector, if there was ever some confusion about the meaning of some sentences, please do not hesitate to contact me. Problem List/Past Medical History Ongoing Abnormal EKG BMI 40.0-44.9, adult Bronchitis Cerumen impaction Chronic back pain greater than 3 months duration Chronic bronchitis Chronic cellulitis Chronic depression COPD (chronic obstructive pulmonary disease) Diarrhea Diastolic heart failure Dizziness PIZARRO (dyspnea on exertion) Dyspnea Edema Exertional shortness of breath Frequency-urgency syndrome Frequent UTI GERD (gastroesophageal reflux disease) HTN (hypertension) Hypokalemia Hypothyroidism Leg swelling Medicare annual wellness visit, subsequent Morbid obesity Needs flu shot Nocturia Osteoporosis Osteoporosis monitoring declined Palpitations Recurrent urinary tract infection Sciatica Skin ulceration Urinary incontinence Historical Acute bronchitis Procedure/Surgical History Echocardiogram: 09/11/21 Esophagogastroduodenoscopy and dilation of esophageal stricture: 01/21/18 Dental: 2016 Total knee replacement L: 2014 Carpal tunnel release: 2000 Carpal tunnel release: 1989 Tonsils and adenoids: 1945 Arthroplasty of shoulder Arthroscopy of knee History of lumbar fusion H/O: hysterectomy History of total replacement of right hip joint Cholecystectomy CE - Cataract extraction Spinal fusion Neuroplasty and/or transposition; median nerve at carpal tunnel Medications Home Medications (32) Active albuterol-ipratropium 2.5 mg-0.5 mg/3 mL inhalation solution 3 mL, Inhalation, QID aspirin 325 mg oral delayed release tablet 325 mg = 1 tab(s), Oral, qDay baclofen 10 mg oral tablet See Instructions Benefiber oral powder for reconstitution 5 mL, PRN, Oral, BID cephalexin 250 mg oral capsule 250 mg = 1 cap(s), Oral, Daily ciprofloxacin 250 mg oral tablet See Instructions clotrimazole 1% topical cream 1 vidhya, PRN, Topical, BID doxycycline hyclate 100 mg oral capsule 100 mg = 1 cap(s), Oral, BID DULoxetine 20 mg oral delayed release capsule 20 mg = 1 cap(s), Oral, qDay Eucerin topical cream 1 vidhya, PRN, Topical, BID flax seed oil 1000 mg oral capsule 1,000 mg = 1 cap(s), Oral, qDay Flovent HFA 44 mcg/inh inhalation aerosol 2 inh, Inhalation, BID furosemide 20 mg oral tablet 20 mg = 1 tab(s), Oral, qDay hydroCHLOROthiazide 25 mg oral tablet 1 tab(s), Oral, qDay hydrOXYzine pamoate 50 mg oral capsule 50 mg = 1 cap(s), Oral, QID labetalol 200 mg oral tablet 1 tab(s), Oral, qDay levothyroxine 175 mcg (0.175 mg) oral tablet 175 mcg = 1 tab(s), Oral, qDay Magnesium Chloride With Calcium 64 mg-112 mg oral delayed release tablet 1 tab(s), Oral, BID metoclopramide 5 mg oral tablet See Instructions Mobic 15 mg oral tablet 15 mg = 1 tab(s), PRN, Oral, qDay Myrbetriq 25 mg oral tablet, extended release 2 tab(s), Oral, qDay NexIUM 20 mg, Oral, qDay omega-3 fish oil 1000 mg oral capsule 1,000 mg = 1 cap(s), Oral, qDay omeprazole 20 mg oral delayed release capsule 1 cap(s), Oral, qHS potassium chloride 10 mEq oral capsule, extended release 1 cap(s), Oral, BID predniSONE 50 mg oral tablet 50 mg = 1 tab(s), Oral, qDay Prescription MISCellaneous See Instructions Prevagen tablet 1 tab(s), Oral, Daily Probiotic Proventil HFA MDI (90 mcg/inh) inhalation aerosol 2 puff(s), PRN, Inhalation, QID Tylenol Extra Strength 500 mg oral tablet 1,000 mg = 2 tab(s), PRN, Oral, q6h Vitamin D3 1000IU, Oral, qDay Allergies Ambien Aspartame (non-codified) Ativan Nembutal Percocet 7.5/325 codeine morphine Social History Alcohol - Denies Alcohol Use, 01/21/2018 Use: Never., 08/28/2020 Substance Abuse - Denies Substance Abuse, 01/21/2018 Tobacco - Denies Tobacco Use, 01/21/2018 Tobacco Use: Former smoker- quit 1960. Type: Cigarettes., 08/13/2018 Family History Bladder cancer: Negative: Mother, Father, Sister, Brother, Daughter, Son and Grandparent. Blood clot: Sister. Heart attack: Father. Heart disease: Father. High blood pressure: Mother and Father. Hypercholesterolemia: Mother and Father. Hypertension: Mother. Kidney stone: Negative: Mother, Father, Sister, Brother, Daughter, Son and Grandparent. Renal cancer: Negative: Mother, Father, Sister, Brother, Daughter, Son and Grandparent. Stroke: Mother. Immunizations pneumococcal 13-valent conjugate vaccine: 0.5 mL (12/07/18) pneumococcal 23-valent vaccine(Pneumovax: 0 unknown unit (11/25/05) SARS-CoV-2 (COVID-19) mRNA-1273 vaccine: 0.25 unknown unit (02/28/21) SARS-CoV-2 (COVID-19) mRNA-1273 vaccine: 0 unknown unit (07/04/20) SARS-CoV-2 (COVID-19) mRNA-1273 vaccine: 0 unknown unit (06/01/20) zoster vaccine, inactivated: 0.5 unknown unit (01/25/21) Code Status Code Status - Ordered -- 02/12/22 23:16:00 EST, Full Code, Constant Order Digitally Signed by LORIN RODRIGUEZ MD on 02/12/2022 11:29 PM [id number] SARS-CoV-2 (COVID-19) RdRp gene LYDIA+probe Ql (Resp) Negative (02/12/22 3:38 PM)AM [facility] [id number] Hospital Discharge instructions Patient Education 02/12/2022 13:37:15 Shortness of Breath (Dyspnea) Shortness of Breath (Dyspnea) Shortness of breath is the feeling that you can't catch your breath or get enough air. It is also known as dyspnea. Dyspnea can be caused by many different conditions. They include: Acute asthma attack Worsening of chronic lung diseases such as chronic bronchitis and emphysema Heart failure. This is when weak heart muscle allows extra fluid to collect in the lungs. Panic attacks or anxiety. Fear can cause rapid breathing (hyperventilation). Pneumonia, or an infection in the lung tissue Exposure to toxic substances, fumes, smoke, or certain medicines Blood clot in the lung (pulmonary embolism). This is often from a piece of blood clot in a deep vein of the leg (deep vein thrombosis) that breaks off and travels to the lungs. Heart attack or heart-related chest pain (angina) Anemia Collapsed lung (pneumothorax) Dehydration Based on your visit today, the exact cause of your shortness of breath is not certain. Your tests don t show any of the serious causes of dyspnea. You may need other tests to find out if you have a serious problem. It s important to watch for any new symptoms or symptoms that get worse. Follow up with your healthcare provider as directed. Home care Follow these tips to take care of yourself at home: When your symptoms are better, go back to your usual activities. If you smoke, you should stop. Join a quit-smoking program or ask your healthcare provider for help. Eat a healthy diet and get plenty of sleep. Get regular exercise. Talk with your healthcare provider before starting to exercise, especially ifyou have other medical problems. Cut down on the amount of caffeine and stimulants you consume. Follow-up care Follow up with your healthcare provider, or as advised. If tests were done, you will be told if your treatment needs to be changed. You can call as directed for the results. If an X-ray was taken, a specialist will review it. You will be notified of any new findings that may affect your care. Call 911 Shortness of breath may be a sign of a serious medical problem. For example, it may be a problem with your heart or lungs. Call 911 if you have worsening shortness of breath or trouble breathing, especially with any of the symptoms below: Confusion or difficulty waking Fainting or loss of consciousness. Fast or irregular heartbeat Coughing up blood Pain in your chest, arm, shoulder, neck, or upper back Sweating When to seek medical advice Call your healthcare provider right away if any of these occur: Slight shortness of breath or wheezing Redness, pain or swelling in your leg, arm, or other body area Swelling in both legs or ankles Fast weight gain Dizziness or weakness Fever of 100.4 F (38 C) or higher, or as directed by your healthcare provider [phone] [employer]. [address] [place] [address], [place] [address]. All rights reserved. This information is not intended as a substitute for professional medical care. Always follow yourhealthcare professional's instructions. Follow Up Care 02/12/2022 11:08:19 With:EMILY MCCARTY MD, [facility] Address: [facility] [address] [facility] [place] [address]- When:5 to 7 days Comments:Please call the office to schedule a follow up appointment With:Say Nolasco, Address:Unknown When:1-2 days Comments:A referral was made for aide services for you. Call them with any questions With:Go to emergency room if symptoms worsen Address:Unknown When:2-4 days [facility] 12-06-2022 Evaluation + Plan noteExtracted from: Title:History and Physical Author:LORIN RODRIGUEZ MD Date:02/12/22 Acute respiratory failure wi th hypoxia: Oxygen saturation of 88% room air Continue oxygen via nasal cannula Likely due to influenza A infection triggering bronchoconstriction Influenza A infection: Patient presented with hypoxia, shortness of breath Point of contact influenza A positive at [facility] Patient was wheezing on my evaluation likely due to virus induced bronchoconstriction Breathing treatments, IV steroids Tamiflu 75 mg twice daily Hypokalemia: Potassium of 2.9 on admission Replacing Chronic diastolic heart failure: Hold home medication of Lasix hydrochlorothiazide due to hypokalemia on admission Hypertension: Resume home medication of labetalol orally Hypothyroidism: Resume home medication of levothyroxine Allergic rhinitis: Fluticasone nasal spray GERD: Oral pantoprazole Urine incontinence: Resume home medication of oral mirabegron DVT prophylaxis: Bilateral SCDs Heparin 5000 subcu every 8 hours Note was written using [employer] belting inspector software. Some of the meaning of the words and sentences might have changed during belting inspector, if there was ever some confusion about the meaning of some sentences, please do not hesitate to contact me. Addendum by LORIN RODRIGUEZ MD on February 13, 2022 05:24:23 EST Hypomagnesemia: Magnesium of 1.4 on admission Replacing Hypophosphatemia: Phosphorus of 1.7 on admission Replacing Future Appointments Appointment Date:02/20/2022 11:00:00 AM Scheduled Provider: Location:[facility] Appointment Type:ADALBERTO MUSHROOM CULTIVATOR Appointment Date:04/25/2022 01:00:00 PM Scheduled Provider:EMILY MCCARTY MD [facility] Appointment Type:PC OV Follow Up Future Scheduled Tests Laboratory* Urine Culture 01/23/22 * Complete Metabolic Panel 01/22/22 Radiology* CT Coronary Calcium Score w/o Contrast 11/15/21 [facility] 12-06-2022 Emergency department Discharge summary Discharge Instructions Thank you for allowing [facility] to assist you with your healthcare needs. The following is importantdischarge information regarding your hospital visit. Diagnosis from Today's Visit Shortness of breath Hypoxia Hypokalemia What to Do Next Instructions from Your Care Team I recommend that you stay in the hospital to further evaluate and treat your hypoxia. Your oxygen levels are low. Your potassium is also low - I recommend IV potassium which you have declined. Take steroids as prescribed. Use inhalers. Follow up with PCP. No qualifying data available. Post Acute Orders No qualifying data available. You Need to Schedule the Following Appointments Follow Up with Go to emergency room if symptoms worsen When Within 2-4 days Follow Up with EMILY MCCARTY MD, [facility] When Within 2-4 days Where: [address] [facility] [address] [facility] [address] [place] [address]- Allergies Ambien Aspartame (non-codified) Ativan Nembutal Percocet 7.5/325 codeine morphine Medications Please ask your primary doctor or pharmacist before taking any other medication not listed, including over the counter drugs, herbal medications, vitamins and or supplements as they may interact [facility]. What How Much When Why Instructions Last Dose New predniSONE (predniSONE 50 mg oral tablet) 1 tab(s) by mouth Once a day Duration: 5 Days Printed Prescription Unchanged acetaminophen (Tylenol Extra Strength 500 mg oral tablet) 2 tab(s) by mouth Every 6 hours as needed for as needed for fever Unchanged albuterol (Proventil HFA MDI (90 mcg/ inh) inhalation aerosol) 2 puff(s) by inhalation Four (4) times a day as needed for as needed for wheezing Duration: 90 Days Unchanged albuterol-ipratropium (albuterol-ipratropium 2.5 mg-0.5 mg/ 3 mL inhalation solution) 3 Milliliter by inhalation Four (4) times a day Unchanged aspirin (aspirin 325 mg oral delayed release tablet) 1 tab(s) by mouth Once a day Unchanged baclofen (baclofen 10 mg oral tablet) See instructions TAKE 1 TABLET BY MOUTH THREE TIMES DAILY Unchanged calcium carbonate-magnesium chloride (Magnesium Chloride With Calcium 64 mg-112 mg oral delayed release tablet) 1 tab(s) by mouth Two (2) times a day Unchanged cephalexin (cephalexin 250 mg oral capsule) 1 cap by mouth Every day UTI prophylaxis Unchanged cholecalciferol (Vitamin D3) 1000IU by mouth Once a day Unchanged ciprofloxacin (ciprofloxacin 250 mg oral tablet) See instructions TAKE 1 TABLET BY MOUTH EVERY 12 HOURS FOR 7 DAYS Unchanged clotrimazole topical (clotrimazole 1% topical cream) 1 application Topical Two (2) times a day as needed for Rash Unchanged DME (Prescription MISCellaneous) See instructions Mediney--aplly once daily to wound. Unchanged doxycycline (doxycycline hyclate 100 mg oral capsule) 1 cap by mouth Two (2) times a day Duration: 7 Days Unchanged DULoxetine (DULoxetine 20 mg oral delayed release capsule) 1 cap by mouth Once a day Unchanged emollients, topical (Eucerin topical cream) 1 application Topical Two (2) times a day as needed for as needed for dry skin UTI symptoms Recurrent urinary tract infection Edema Unchanged esomeprazole (NexIUM) 20 Milligram by mouth Once a day Unchanged fluticasone (Flovent HFA 44 mcg/ inh inhalation aerosol) 2 inh by inhalation Two (2) times a day Unchanged furosemide (furosemide 20 mg oral tablet) 1 tab(s) by mouth Once a day Duration: 90 Days Unchanged herbal/ nutritional product (flax seed oil 1000 mg oral capsule) 1 cap by mouth Once a day Unchanged herbal/ nutritional product (Prevagen tablet) 1 tab(s) by mouth Every day Unchanged herbal/ nutritional product (Probiotic) 1 qd Unchanged hydroCHLOROthiazide (hydroCHLOROthiazide 25 mg oral tablet) 1 tab(s) by mouth Once a day Unchanged hydrOXYzine (hydrOXYzine pamoate 50 mg oral capsule) 1 cap by mouth Four (4) times a day Unchanged labetalol (labetalol 200 mg oral tablet) 1 tab(s) by mouth Once a day Unchanged levothyroxine (levothyroxine 175 mcg (0.175 mg) oral tablet) 1 tab(s) by mouth Once a day Hypothyroidism Duration: 30 Days Unchanged meloxicam (Mobic 15 mg oral tablet) 1 tab(s) by mouth Once a day as needed for Joint pain Unchanged metoclopramide (metoclopramide 5 mg oral tablet) See instructions TAKE 1 TABLET BY MOUTH 3 TIMES DAILY (30 MINUTES BEFORE 2 MEALS AND AT BEDTIME). Unchanged mirabegron (Myrbetriq 25 mg oral tablet, extended release) 2 tab(s) by mouth Once a day Unchanged omega-3 polyunsaturated fatty acids (omega-3 fish oil 1000 mg oral capsule) 1 cap by mouth Once a day Unchanged omeprazole (omeprazole 20 mg oral delayed release capsule) 1 cap by mouth Daily at bedtime Unchanged potassium chloride (potassium chloride 10 mEq oral capsule, extended release) 1 cap by mouth Two (2) times a day Unchanged wheat dextrin (Benefiber oral powder for reconstitution) 5 Milliliter by mouth Two (2) times a day as needed for for constipation Please take this list to your next doctor s visit. Bring all medications you take, including over the counter medications, herbals and other supplements with you to your doctor s visit. Patients and families are reminded to discard old lists and to update any records with all medication providers or retail pharmacies. Education Materials Shortness of Breath (Dyspnea) Shortness of breath is the feeling that you can't catch your breath or get enough air. It is also known as dyspnea. Dyspnea can be caused by many different conditions. They include: Acute asthma attack Worsening of chronic lung diseases such as chronic bronchitis and emphysema Heart failure. This is when weak heart muscle allows extra fluid to collect in the lungs. Panic attacks or anxiety. Fear can cause rapid breathing (hyperventilation). Pneumonia, or an infection in the lung tissue Exposure to toxic substances, fumes, smoke, or certain medicines Blood clot in the lung (pulmonary embolism). This is often from a piece of blood clot in a deep vein of the leg (deep vein thrombosis) that breaks off and travels to the lungs. Heart attack or heart-related chest pain (angina) Anemia Collapsed lung (pneumothorax) Dehydration Based on your visit today, the exact cause of your shortness of breath is not certain. Your tests don t show any of the serious causes of dyspnea. You may need other tests to find out if you have a serious problem. It s important to watch for any new symptoms or symptoms that get worse. Follow up with your healthcare provider as directed. Home care Follow these tips to take care of yourself at home: When your symptoms are better, go back to your usual activities. If you smoke, you should stop. Join a quit-smoking program or ask your healthcare provider for help. Eat a healthy diet and get plenty of sleep. Get regular exercise. Talk with your healthcare provider before starting to exercise, especially ifyou have other medical problems. Cut down on the amount of caffeine and stimulants you consume. Follow-up care Follow up with your healthcare provider, or as advised. If tests were done, you will be told if your treatment needs to be changed. You can call as directed for the results. If an X-ray was taken, a specialist will review it. You will be notified of any new findings that may affect your care. Call 911 Shortness of breath may be a sign of a serious medical problem. For example, it may be a problem with your heart or lungs. Call 911 if you have worsening shortness of breath or trouble breathing, especially with any of the symptoms below: Confusion or difficulty waking Fainting or loss of consciousness. Fast or irregular heartbeat Coughing up blood Pain in your chest, arm, shoulder, neck, or upper back Sweating When to seek medical advice Call your healthcare provider right away if any of these occur: Slight shortness of breath or wheezing Redness, pain or swelling in your leg, arm, or other body area Swelling in both legs or ankles Fast weight gain Dizziness or weakness Fever of 100.4 F (38 C) or higher, or as directed by your healthcare provider [id number] [employer]. [address] [place] [address]. All rights reserved. This information is not intended as a substitute for professional medical care. Always follow yourhealthcare professional's instructions. Additional Information VACCINATE! IT SAVES LIVES! Members of the community who have not yet received the COVID-19 vaccine and would like to receive it can visit one of [facility] vaccine clinics. There are many vaccine clinic locations within the [facility]. For locations and available times, please visit [email or web address]. It is important to note that some COVID mobile vaccine clinics are held outdoors and may be canceled in rainy orstormy conditions. To learn more about pediatric vaccinations (ages 5-11), we invite you to visit the [facility] webpage. [email or web address]/[email or web address] [email or web address].htmlTo learn more about the COVID-19 vaccine, we invite you to visit the [facility] website for a list of frequently asked questions. [email or web address] [email or web address].pdf [facility] Patient Portal Access Instructions: Stay connected with your healthcare team and access your personal medical information anytime with the [facility] Patient Portal. If you would like a full copy of your medical records please contact the [facility] Medical Records Department Friday through Friday between 8a.m. and 4:30p.m. Please follow the directions below to access the portal: 1.Access the email account you provided upon registration to the [facility].2.Look for an invitation email from [facility].3.Open the email and access the invitation link: Accept Invitation to [facility].Fill in the required carpenter to create your account. Sign into [email or web address] with your username and password that you created in the above steps to stay up to date. You can then view a summary of results, a summary of your visits, and the ability to download your summaries to your computer or send the information securely to a physician. Remember that your healthcare information is confidential, so carefully consider who you will allow to register on the [facility] Patient Portal for access to your information. You can also access the [facility] Patient Portal on the [employer]. Simply click on Health Records under exsulin and then click on the [employer] logo. HOW TO SAFELY DISPOSE OF PRESCRIPTION MEDICATIONS Please use one of the following methods to safely dispose of your unused medications. 1.Use a drug disposal kit: the drug disposal pouch allows you to safely discard your old and unuseddrugs. Ask your nurse to give you one when you are discharged.2.Visit a local take-back location: Many local pharmacies and police departments have programs that collect old and unwanted prescriptiondrugs. Call your local pharmacy or go to http://bit.MixRank/1Q3Bw8v to find one close to you.3.Make use of household items: Use cat litter or old coffee grounds to dispose medications if other options arenot available. Mix your drugs with these household products, seal them in an airtight container andthrow it into the garbage. Call [facility]: [phone] to be sure your drugs can be disposed of in this way. Some medicines may require a different approach.4.Never flush your medications down the toilet. IF YOU HAVE BEEN PRESCRIBED AN OPIOIDS FOR PAIN If you have been prescribed an opioid (such as hydrocodone, oxycodone or morphine), it is critical to understand the possible side effects and risks of opioid pain medications. Even when taken as directed, opioids can have several side effects including: Tolerance, meaning you might need to take more of a medication for the same pain relief. Nausea, vomiting and/or constipation. Sleepiness, dizziness, dry mouth, confusion, depression or itching. Physical dependence, meaning you have withdrawal symptoms when a medication is stopped ? this can develop within a few days. KNOW YOUR RESPONSIBILITIES It is important to know exactly how much and how often to take the opioid pain medications you are prescribed. Never take opioids in higher amounts or more often than prescribed. Do not combine opioids with alcohol or other drugs that cause drowsiness, such as benzodiazepines, also known as benzos,including diazepam and alprazolam, muscle relaxants or sleep aids. Never sell or share prescriptionopioids. This is illegal. Store opioids in a secure place and out of reach of others (including children, family, friends and visitors). The last page(s) of this document has been signed and retained as a CHART COPY Signatures Patient Education Materials Shortness of Breath (Dyspnea) Medication Leaflets My discharge plan and instructions have been reviewed and explained to me and I,EMILY PERALTA understand my current condition and have read and understand these discharge instructions. I have received a written copy of the plan/instructions. If I have questions, I am aware that I should contact my doctor. 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 The lungs are otherwise clear. The cardiac silhouette is within normal size limits. The pulmonary vasculature is unremarkable in appearance. IMPRESSION: Mild left atelectasis, otherwise clear lungs. Interpreted by: Sandra Miles MD Preliminary Report By: Sandra Miles MD Electronically signed By Sandra Miles MD Dictated Date: 02/12/2022 11:57:47 AM Prelim Date: 02/12/2022 11:58:31 AM Sign Date: 02/12/2022 11:58:31 AM Ordering Provider: MARLEE WEIR [id number] Note ORIGINAL HISTORY: Short of breath, cough COMPARISON: 15 October 2019 FINDINGS: There are a few mild streaky airspace opacities in the left base. The lungs are otherwise clear. The cardiac silhouette is within normal size limits. The pulmonary vasculature is unremarkable in appearance. IMPRESSION: Mild left atelectasis, otherwise clear lungs. Interpreted by: Sandra Miles MD Preliminary Report By: Sandra Miles MD Electronically signed By Sandra Miles MD Dictated Date: 02/12/2022 11:57:47 AM Prelim Date: 02/12/2022 11:58:31 AM Sign Date: 02/12/2022 11:58:31 AM Ordering Provider: [facility] Future Appointments Appointment Date:02/08/2021 01:30:00 PM Scheduled Provider:EMILY MCCARTY MD Location:[facility] Appointment Type: OV Follow Up Future Scheduled Tests Laboratory* Basic Metabolic Panel 07/07/20 * Complete Metabolic Panel 01/22/22 [facility] Evaluation + Plan note Future Appointments Appointment Date:04/25/2022 01:00:00 PM Scheduled Provider:EMILY MCCARTY MD Location:[facility] Appointment Type:PC OV Follow Up Future Scheduled Tests Laboratory* Urine Culture 01/23/22 * Complete Metabolic Panel 01/22/22 Radiology* XR Spine Lumbar AP/LAT/FLEX/EXT 04/08/22 * CT Coronary Calcium Score w/o Contrast 11/15/21 [facility] Evaluation note* Diagnosis Urinary tract infection with hematuria, site unspecified- Primary Hypertension, unspecified type Other specified hypothyroidism Acute hypoxic respiratory failure (HCC) Debility Debility, unspecified OAB (overactive bladder) Hypertonicity of bladder [facility] Diagnosis Urinary tract infection with hematuria, site unspecified- Primary Hypertension, unspecified type Other specified hypothyroidism Acute hypoxic respiratory failure (HCC) Debility Debility, unspecified [facility]* Diagnosis Urinary tract infection with hematuria, site unspecified- Primary Haemophilus influenzae infection Hemophilus influenzae (H. influenzae) infection in conditions classified elsewhere and of unspecified site Hypertension, unspecified type Other specified hypothyroidism Acute hypoxic respiratory failure (HCC) Debility Debility, unspecified documented in this encounter [facility] note* Diagnosis Urinary tract infection with hematuria, site unspecified- Primary Haemophilus influenzae infection Hemophilus influenzae (H. influenzae) infection in conditions classified elsewhere and of unspecified site Hypertension, unspecified type Other specified hypothyroidism Acute hypoxic respiratory failure (HCC) Debility Debility, unspecified OAB (overactive bladder) Hypertonicity of bladder [facility]* Diagnosis Urinary tract infection with hematuria, site unspecified- Primary Haemophilus influenzae infection Hemophilus influenzae (H. influenzae) infection in conditions classified elsewhere and of unspecified site Hypertension, unspecified type Other specified hypothyroidism Acute hypoxic respiratory failure (HCC) Debility Debility, unspecified [facility]* Diagnosis Urinary tract infection with hematuria, site unspecified- Primary Haemophilus influenzae infection Hemophilus influenzae (H. influenzae) infection in conditions classified elsewhere and of unspecified site Hypertension, unspecified type Other specified hypothyroidism Acute hypoxic respiratory failure (HCC) Hypokalemia Hypopotassemia Debility Debility, unspecified documented in this encounter [facility] note* Diagnosis Non-traumatic rhabdomyolysis- Primary Acute pain of right shoulder Personal history of fall Hypertension, unspecified type Chronic obstructive pulmonary disease, unspecified COPD type (HCC) Debility Debility, unspecified Abnormal finding on urinalysis Other nonspecific finding on examination of urine Other specified hypothyroidism [facility] Diagnosis Acute pain of right shoulder- Primary Personal history of fall Non-traumatic rhabdomyolysis Hypertension, unspecified type Chronic obstructive pulmonary disease, unspecified COPD type (HCC) Debility Debility, unspecified Dysuria [facility]* Diagnosis Acute pain of right shoulder- Primary Personal history of fall Non-traumatic rhabdomyolysis Hypertension, unspecified type Chronic obstructive pulmonary disease, unspecified COPD type (HCC) Debility Debility, unspecified [facility]* Diagnosis Acute pain of right shoulder- Primary Personal history of fall Non-traumatic rhabdomyolysis Hypertension, unspecified type Chronic obstructive pulmonary disease, unspecified COPD type (HCC) Debility Debility, unspecified documented in this encounter [facility] note* Diagnosis COPD exacerbation (HCC)- Primary Obstructive chronic bronchitis with exacerbation COPD exacerbation (HCC) Obstructive chronic bronchitis with exacerbation Acute on chronic congestive heart failure, unspecified heart failure type (HCC) Acute hypoxic respiratory failure (HCC) [facility] Narrative No data available for this section [facility] Hospital Discharge instructions No data available for this section [facility] Progress note No data available for this section [facility] Summary Purpose Family History No Family History Records FoundNo Family History Records FoundNo Family History Records Found No data available for this section No Family History Records FoundNo Family History Records FoundNo Family History Records FoundNo Family History Records FoundNo Family History Records Found Advance Directives Documents on File Type Date Recorded 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 Teacher Expl 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 Advance Directive(s) 09/23/2023 4:28 PM Date Activated Date Inactivated Comments 09/13/2023 1:25 PM 09/23/2023 4:24 AM Question Answer Comments Full Code Order Discussed With: Patient Date Activated Date Inactivated Comments 10/21/2023 9:48 PM 10/24/2023 5:18 PM Date Activated Date Inactivated Comments 09/13/2023 1:25 PM 09/23/2023 4:24 AM Question Answer Comments Full Code Order Discussed With: Patient Documents on File Type Date Recorded 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 Teacher Expl anation DNR (Do Not Resuscitate) 08/11/2024 12:53 PM [place] DNR Form Advance Directives and Livin g Will 08/03/2024 7:07 PM Power of Sales Service Supervisor 08/03/2024 7:05 PM DNR (Do Not Resuscitate) 08/03/2024 7:03 PM Date Activated Date Inactivated Comments 08/04/2024 5:51 AM 08/11/2024 7:35 PM Question Answer Comments ICU transfer: No Date Activated Date Inactivated Comments 08/03/2024 10:39 PM 08/04/2024 5:51 AM Documents on File Type Date Recorded 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 Teacher Expl anation DNR (Do Not Resuscitate) 08/12/2024 10:00 AM Advance Directives and Livin g Will 08/12/2024 9:26 AM Power of Sales Service Supervisor 08/12/2024 9:25 AM DNR (Do Not Resuscitate) 08/11/2024 12:53 PM [place] DNR Form Advance Directives and Livin g Will 08/03/2024 7:07 PM Power of Sales Service Supervisor 08/03/2024 7:05 PM DNR (Do Not Resuscitate) 08/03/2024 7:03 PM Additional Source Comments INFORMATION SOURCE (unrecogn ized section and content) DATE CREATED AUTHOR 02/16/2018 [facility] DATE CREATED AUTHOR AUTHOR'S ORGANIZ ATION 04/24/2021 [facility] Cookie pe[place]ock [place] DATE CREATED AUTHOR AUTHOR'S ORGANIZ ATION 01/17/2022 [facility] DATE CREATED AUTHOR AUTHOR'S ORGANIZ ATION 09/11/2023 [facility] DATE CREATED AUTHOR AUTHOR'S ORGANIZ ATION 11/12/2023 [facility] DATE CREATED AUTHOR AUTHOR'S ORGANIZ ATION 11/30/2023 [facility] Cookie ríos DATE CREATED AUTHOR AUTHOR'S ORGANIZ ATION 05/01/2024 [facility] DATE CREATED AUTHOR AUTHOR'S ORGANIZ ATION 08/13/[address] [facility] Care Team (unrecognized sect ion and content) Care Team Personnel Name: EMILY MCCARTY MD Position: P4 Physician - Primary Care Member Role: Primary Care Physician Address: Address: [address] [place] [address] [address] [facility] [address]- [place] Name: Kendall Harris RN Position: ED RN Member Role: ED RN Care Team Related Persons Name: AMBIKA RICHARDS Name: LAURA REYNOSO Address: Home Care Team Personnel Name: EMILY MCCARTY MD Position: P4 Physician - Primary Care Member Role: Primary Care Physician Address: Address: [address] [place] [address] [address] [place] [address]- Care Team Related Persons Name: AMBIKA RICHARDS Name: LAURA REYNOSO Address: Home Patient Care team informatio n (unrecognized section and content) Liquor Tester Relationship Specialty Start Date End Date Emily Mccarty MD [address] [facility] [address] [place] [address] PCP - General Internal Medicine 12/31/22 Liquor Tester Relationship Specialty Start Date End Date Emily Mccarty MD [address] [facility] [address] [place] [address] PCP - General Internal Medicine 12/31/22 Liquor Tester Relationship Specialty Start Date End Date Emily Mccarty MD [address] [facility] [address] [place] [address] PCP - General Internal Medicine 12/31/22 Liquor Tester Relationship Specialty Start Date End Date Emily Mccarty MD [address] [facility] [address] [place] [address] PCP - General Internal Medicine 12/31/22 Liquor Tester Relationship Specialty Start Date End Date Emily Mccarty MD [address] [facility] [address] [place] [address] PCP - General Internal Medicine 12/31/22 Liquor Tester Relationship Specialty Start Date End Date Emily Mccarty MD [address] [facility] [address] [place] [address] PCP - General Internal Medicine 12/31/22 Source Comments (unrecognize d section and content) In the event this informatio n is protected by the Federal Confidentiality of Alcohol and Drug Abuse Patient Records regulations: The Federal rules restrict any use of the information to criminally investigate or prosecute any alcohol or drug abuse patient.[facility] the event this information is protected by the Federal Confidentiality of Alcohol and Drug Abuse Patient Records regulations: The Federal rules restrict any use of the information to criminally investigate or prosecute any alcohol or drug abuse patient.[facility] Shaw[facility] the event this information is protected by the Federal Confidentiality of Alcohol and Drug Abuse Patient Records regulations: The Federal rules restrict any use of the information to criminally investigate or prosecute any alcohol or drug abuse patient.[facility] ShawIn the event this information is protected by the Federal Confidentiality of Alcohol and Drug Abuse Patient Records regulations: The Federal rules restrict any use of the information to criminally investigate or prosecute any alcohol or drug abuse patient.[facility] ShawIn the event this information is protected by the Federal Confidentiality of Alcohol and Drug Abuse Patient Records regulations: The Federal rules restrict any use of the information to criminally investigate or prosecute any alcohol or drug abuse patient.[facility] ShawIn the event this information is protected by the Federal Confidentiality of Alcohol and Drug Abuse Patient Records regulations: The Federal rules restrict any use of the information to criminally investigate or prosecute any alcohol or drug abuse patient.[facility] ShawIn the event this information is protected by the Federal Confidentiality of Alcohol and Drug Abuse Patient Records regulations: The Federal rules restrict any use of the information to criminally investigate or prosecute any alcohol or drug abuse patient.[facility] ShawIn the event this information is protected by the Federal Confidentiality of Alcohol and Drug Abuse Patient Records regulations: The Federal rules restrict any use of the information to criminally investigate or prosecute any alcohol or drug abuse patient.[facility] ShawIn the event this information is protected by the Federal Confidentiality of Alcohol and Drug Abuse Patient Records regulations: The Federal rules restrict any use of the information to criminally investigate or prosecute any alcohol or drug abuse patient.[facility] ShawIn the event this information is protected by the Federal Confidentiality of Alcohol and Drug Abuse Patient Records regulations: The Federal rules restrict any use of the information to criminally investigate or prosecute any alcohol or drug abuse patient.[facility] ShawIn the event this information is protected by the Federal Confidentiality of Alcohol and Drug Abuse Patient Records regulations: The Federal rules restrict any use of the information to criminally investigate or prosecute any alcohol or drug abuse patient.[facility] ShawIn the event this information is protected by the Federal Confidentiality of Alcohol and Drug Abuse Patient Records regulations: The Federal rules restrict any use of the information to criminally investigate or prosecute any alcohol or drug abuse patient.[facility] ShawIn the event this information is protected by the Federal Confidentiality of Alcohol and Drug Abuse Patient Records regulations: The Federal rules restrict any use of the information to criminally investigate or prosecute any alcohol or drug abuse patient.[facility] Reason for Visit (unrecogniz ed section and content) Reason Comments Shortness of Breath Specialty Diagnoses / Procedures Referred By Contac t Referred To Contact Diagnoses COPD exacerbation (HCC) Acute on chronic congestive heart failure, unspecified heart failure type (HCC) Procedures .. Fransisco Pete MD [address] [place] [address] Phone: tel: fax: [facility] [address]U [address] [place] [address] Phone: tel: Referral ID Status Reason Start Date Expiration Date Visits Re quested Visits Authorized [id number] 1 Scheduled Active and Recently Administ ered Medications (unrecognized section and content) Medication Order 08/09/2024 08/10/202408/11/2024 amLODIPine (Norvasc) tablet 5 mg 5 mg, Oral, Every 24 hours, First dose on Fri08/04/24 at 1200 1135 (Given - Provider: Adrian Palma RN) 1208 (Given - Provider: Iona Sheppard, RN) 1225 (Given - Provider: Tereso Matta, RN) cefTRIAXone (Rocephin) 1,000 mg in sodium chloride 0.9 % 50 mL IVPB Mini-Bag Plus (CANCELED) 1,000 mg, IntraVENous, at 100 mL/hr, Administer over 30 Minutes, Every 24 hours, First dose on Fri08/04/24 at 1100, Mini-Bag Plus bag, Suspected Indication (Select all that apply): Pneumonia (CAP) 1136 (New Bag - Provider: Adrian Palma RN)1303 (Stopped - Provider: Adrian Palma RN) cephalexin (Keflex) capsule 1,000 mg (COMPLETED) 1,000 mg, Oral, Every 8 hours, First dose on Fri08/09/24 at 2000, For 5 doses, Suspected Indication (Select all that apply): Pneumonia (CAP) 2136 (Given - Provider: Sophy Olmos RN) 0424 (Given - Provider: Sophy Olmos RN)1208 (Given - Provider: Iona Sheppard, ELÍAS)203 (Given - Provider: Karma Flores, RN) 0602 (Given - Provider: Karma Flores, RN - Comment: pt coughing wanting to wait) enoxaparin (Lovenox) syringe 30 mg 30 mg, SubCUTAneous, Every 12 hours scheduled (2 times per day), First dose on Fri08/03/24 at 2240, Indication of Use: Prophylaxis-DVT/PE 0811 (Given - Provider: Adrian Palma RN)213 (Given - Provider: Sophy Olmos RN) 0926 (Given - Provider: Iona Sheppard, ELÍAS)203 (Given - Provider: Karma Flores, RN) 0901 (Given - Provider: Tereso Matta, RN) escitalopram (Lexapro) tablet 10 mg 10 mg, Oral, Nightly, First dose on Fri08/04/24 at 2100 2136 (Given - Provider: Sophy Olmos RN) 203 (Given - Provider: Karma Flores, RN) furosemide (Lasix) injection 20 mg (COMPLETED) 20 mg, IntraVENous, Once, On Fri08/09/24 at 1600, For 1 dose 1606 (Given - Provider: Adrian Palma RN) furosemide (Lasix) tablet 20 mg 20 mg, Oral, 2 times daily, First dose on Fri08/04/24 at 1500 0538 (Given - Provider: Sophy Olmos RN)1606 (Given - Provider: Adrian Palma, ELÍAS) 0607 (Given - Provider: Sophy Olmos RN)1512 (Given - Provider: Iona Sheppard, RN) 0602 (Given - Provider: Karma Flores, RN)1349 (Given - Provider: Tereso Matta, ELÍAS) ipratropium-albuterol (Duo-Neb) 0.5-2.5 mg/3 mL nebulizer solution 3 mL 3 mL (1 ampule), Nebulization, Every 4 hours while awake, First dose on Fri08/04/24 at 0800 0841 (Given - Provider: Khari Riojas RCP)1141 (Given - Provider: Khari Riojas RCP)1634 (Given - Provider: Khari Riojas RCP)2009 (Given - Provider: Wagner Mejia, MOLD TOOLING TECHNICIAN) 0824 (Given - Provider: Iwona Singh RCP)1250 (Given - Provider: Iwona Singh RCP)1622 (Given - Provider: Froilan Pascual, MOLD TOOLING TECHNICIAN)2027 (Given - Provider: Sakina Caldwell, RONNY) 0722 (Not Given - Provider: Sharda Harden RCP - Reason: Patient/family refused - Comment: Pt stated not now, will take in the afternoon)1153 (Given - Provider: Sharda Harden RCP)1600 (Canceled Entry - Provider: Automatic Discharge Provider - Comment: Automatically canceled at discontinue of medication order) labetalol (Normodyne) tablet 200 mg 200 mg, Oral, Every 24 hours, First dose on Fri08/04/24 at 1200 1135 (Given - Provider: Adrian Palma RN) 1208 (Given - Provider: Iona Sheppard, ELÍAS) 1227 (Given - Provider: Tereso Matta, ELÍAS) levothyroxine (Synthroid, Levoxyl) tablet 137 mcg 137 mcg, Oral, Every 24 hours, First dose on Fri08/04/24 at 1200, Tube feeding (TF) interaction, obtain physician order to manage, recommend holding TF for 30 minutes before and after dose. 0538 (Given - Provider: Sophy Olmos RN) 06 (Given - Provider: Sophy Olmos RN) 06 (Given - Provider: Karma Flores, ELÍAS) methylPREDNISolone sod suc (PF) (SOLU-Medrol) 40 MG injection 20 mg (CANCELED) 20 mg, IntraVENous, Every 12 hours, First dose on Fri08/05/24 at 1600 0430 (Given - Provider: Sophy Olmos RN) mirabegron ER (Myrbetriq) 24 hr tablet 25 mg 25 mg, Oral, Daily, First dose on Fri08/04/24 at 1300, Do not crush, chew, or split. 08 (Given - Provider: Adrian Palma RN) 925 (Given - Provider: Iona Sheppard, ELÍAS) 09 (Given - Provider: Tereso Matta, ELÍAS) pantoprazole (ProtoNix) EC tablet 40 mg 40 mg, Oral, Daily before breakfast, First dose on Fri08/05/24 at 0600, Do not crush, chew, or split. 0538 (Given - Provider: Sophy Olmos RN) 06 (Given - Provider: Sophy Olmos RN) 06 (Given - Provider: Karma Flores, ELÍAS) potassium chloride CR (Klor-Con M10) ER tablet 20 mEq 20 mEq, Oral, Every 12 hours, First dose on Fri08/04/24 at 2100, Best given with food and a glass of water to minimize gastric irritation. Do not crush or chew. 0812 (Given - Provider: Adrian Palma RN)2135 (Given - Provider: Sophy Olmos RN) 925 (Given - Provider: Iona Sheppard, ELÍAS)2038 (Given - Provider: Karma Flores, RN) 09 (Given - Provider: Tereso Matta, ELÍAS) predniSONE (Deltasone) tablet 10 mg(Linked Group 1) 10 mg, Oral, Daily, First dose on Rita 08/12/24 at 0900, For 2 doses predniSONE (Deltasone) tablet 20 mg(Linked Group 1) 20 mg, Oral, Daily, First dose on Fri08/10/24 at 0900, For 2 doses 09 (Not Given - Provider: Iona Sheppard RN - Reason: Patient/family refused) 09 (Not Given - Provider: Tereso Matta RN - Reason: Patient/family refused) sodium chloride 0.9% (NS) flush 10 mL 10 mL, IntraVENous, Every 12 hours scheduled (2 times per day), First dose on Fri08/03/24 at 2240 1157 (Not Given - Provider: Adrian Palma RN - Reason: Other - Comment: given- patient has q8 order as well)2136 (Given - Provider: Sophy Olmos RN) 09 (Given - Provider: Iona Sheppard, ELÍAS)204 (Given - Provider: Karma Flores, ELÍAS) 09 (Given - Provider: Tereso Matta RN) sodium chloride 0.9% (NS) flush 10 mL 10 mL, IntraVENous, Every 8 hours, First dose (after last modification) on 08/07/24 at 1145, After every IV line use 0300 (Given - Provider: Sophy Olmos RN)1136 (Given - Provider: Adrian Palma RN)2137 (Given - Provider: Sophy Olmos, ELÍAS) 0424 (Given - Provider: Sophy Olmos RN)1209 (Given - Provider: Iona Sheppard, ELÍAS)212 (Not Given - Provider: Karma Flores, ELÍAS - Reason: Other) 0345 (Canceled Entry - Provider: Automatic Discharge Provider - Comment: Automatically canceled at discontinue of medication order)09 (Given - Provider: Tereso Matta, ELÍAS) stomahesive in petrolatum (ET Mix) Topical, Every 8 hours, First dose on Rita 08/05/24 at 1430, Nursing staff to perform dressing change: Right buttock: Pressure Injury (DTI) - Clean with soap and water, apply ET mix then leave LISA TID and PRN 0539 (Given - Provider: Sophy Olmos RN)1614 (Given - Provider: Adrian Palma RN)2211 (Given - Provider: Sophy Olmos RN) 0609 (Given - Provider: Sophy Olmos RN)1513 (Given - Provider: Iona Sheppard, RN)2300 (Given - Provider: Karma Flores, RN) 0600 (Given - Provider: Karma Flores, RN)1353 (Given - Provider: Tereso Matta RN) traZODone (Desyrel) tablet 50 mg 50 mg, Oral, Nightly, First dose on Fri08/04/24 at 2100 2136 (Given - Provider: Sophy Olmos RN) 2039 (Given - Provider: Karma Flores RN) PRN Medication Order 08/09/2024 08/10/2024 08/11/2024 acetaminophen (Tylenol) tablet 650 mg (CANCELED) 650 mg, Oral, Every 6 hours PRN, mild pain (1-3), headaches, Starting on Fri08/06/24 at 1619, Maximum dose of acetaminophen is 4000 mg from all sources in 24 hours. 0812 (Given - Provider: Adrian Palma RN)1605 (Given - Provider: Adrian Palma RN)2136 (Given - Provider: Sophy Olmos RN) 0424 (Given - Provider: Sophy Olmos RN)1512 (Given - Provider: Iona Sheppard, ELÍAS) 0602 (Given - Provider: Karma Flores, RN) acetaminophen (Tylenol) tablet 650 mg 650 mg, Oral, Every 4 hours PRN, mild pain (1-3), headaches, Starting on Fri08/11/24 at 1012, Maximum dose of acetaminophen is 4000 mg from all sources in 24 hours. 1021 (Given - Provider: Tereso Matta RN)1351 (Given - Provider: Tereso Matta RN) albuterol (2.5 MG/3ML) 0.083% nebulizer solution 2.5 mg 2.5 mg, Nebulization, Every 2 hour PRN, wheezing, Starting on Fri08/03/24 at 2239 guaiFENesin (Robitussin) 100 MG/5ML liquid 200 mg 200 mg, Oral, Every 4 hours PRN, cough, Starting on Fri08/06/24 at 0552 0812 (Given - Provider: Adrian Palma RN)1219 (Given - Provider: Adrian Palma RN)1605 (Given - Provider: Adrian Palma RN)2136 (Given - Provider: Sophy Olmos RN) 0607 (Given - Provider: Sophy Olmos RN)1208 (Given - Provider: Iona Sheppard RN)2038 (Given - Provider: Karma Flores, ELÍAS) 0602 (Given - Provider: Karma Flores, ELÍAS)1021 (Given - Provider: Tereso Matta RN)1352 (Given - Provider: Tereso Matta RN) hydrOXYzine pamoate (Vistaril) capsule 25 mg 25 mg, Oral, Every 8 hours PRN, anxiety, Starting on Fri08/04/24 at 0211 0117 (Given - Provider: Sophy Olmos RN)0812 (Given - Provider: Adrian Palma RN)1605 (Given - Provider: Adrian Palma RN)2136 (Given - Provider: Sophy Olmos RN) 0424 (Given - Provider: Sophy Olmos RN)1208 (Given - Provider: Iona Sheppard, ELÍAS)2039 (Given - Provider: Karma Flores, ELÍAS) 0602 (Given - Provider: Karma Flores, ELÍAS)1021 (Given - Provider: Tereso Matta RN - Comment: ok per dr wan to give early) perflutren protein A microsphere (Optison) 3 mL in sodium chloride (PF) 0.9 % 10 mL IV 0-10 mL, IntraVENous, IMG once PRN, other, Suboptimal echo image, Starting on Fri08/05/24 at 0913, For 1 dose, CV Procedural Medications, Administer via slow IVP for suboptimal echocardiogram enhancement. May administer as divided doses to reach optimal image enhancement polyethylene glycol (PEG) 3350 (Miralax) packet 17 g 17 g, Oral, Daily PRN, constipation, Starting on Fri08/03/24 at 2239, 1st line for treatment of constipation - give scheduled if no bowel movement in past 24 hours. senna-docusate sodium (Senokot-S) 8.6-50 MG tablet 1 tablet 1 tablet, Oral, Daily PRN, constipation, Starting on Fri08/04/24 at 1150 sodium chloride 0.9 % infusion 5-250 mL/hr, IntraVENous, PRN, if patient receiving piggyback infusions and maintenance fluids are not ordered OR KVO fluids to protect IV site / prevent frequent line interruptions/ long duration, Starting on Fri08/03/24 at 2239, For piggyback infusion, administer at same rate as piggyback for a total of 25 mL. Enter 25 mL into dose field and piggyback rate into rate field of order. If piggyback is infusing at a rate less than 100 mL/hr, enter 25 mL into dose field and 100 mL/hr into rate field of order. For KVO fluids, enter rate of 20 mL/hr or less into rate field of order. stomahesive in petrolatum (ET Mix) Topical, PRN, dry skin, Starting on Fri08/05/24 at 1401, Nursing staff to perform dressing change: Right buttock: Pressure Injury (DTI) - Clean with soap and water, apply ET mix then leave LISA TID and PRN Linked Groups Order Group 1: predniSONE (Deltasone) tablet 20 mgJump to med 20 mg, Oral, Daily, First dose on Fri08/10/24 at 0900, For 2 doses Followed by predniSONE (Deltasone) tablet 10 mgJump to med 10 mg, Oral, Daily, First dose on Fri08/12/24 at 0900, For 2 doses FOR RECORDS PERTAINING TO PATIENTS WHO ARE OR HAVE BEEN ENROLLED IN A CHEMICAL DEPENDENCY/SUBSTANCEABUSE PROGRAM, SOME INFORMATION MAY BE OMITTED. This clinical summary was aggregated from multiple sources. Caution should be exercised in using it in the provision of clinical care. This summary normalizes information from multiple sources, and as a consequence, information in this document may materially change the coding, format and clinical context of patient data. In addition, data may be omitted in some cases. CLINICAL DECISIONS SHOULD BE BASED ON THE PRIMARY CLINICAL RECORDS. [facility]. provides no warranty or guarantee of the accuracy or completeness of information in this document.
[2024-08-18 07:52] LABS: Hematocrit 39.8 % (37-47); Hemoglobin 12.8 g/dL (12.0-15.0); Mean Corp Hgb Conc 32.2 g/dL (32-36); Mean Corpuscular Hgb 28.7 pg (27.0-32.0); Mean Corpuscular Volume 89.2 fL (81-99); Mean Platelet Vol. 11.2 fl (6.2-12.0); Platelet Count 100 K/mm3 (150-450); RBC Distribution Width CV 14.9 % (11.6-14.6); RBC Distribution Width SD 48.4 fl (35.1-43.9); Red Blood Count 4.46 M/mm3 (4.2-5.4); White Blood Count 6.4 K/mm3 (4.4-11.0)
[2024-08-18 07:59] LABS: Anion Gap 10 (5-15); BUN 9 mg/dL (4-19); BUN/Creat Ratio 10.4 RATIO (10-20); Calcium,Total 9.4 mg/dL (7.6-11.0); Carbon Dioxide 28.5 mmol/L (21.0-32.0); Chloride 100 mmol/L (98-108); Creatinine, Serum 0.84 mg/dL (0.70-1.20); EST Glomerular Filtration Rate 68 (>60); Glucose 107 mg/dL (70-99); Potassium 3.9 mmol/L (3.3-5.1); Sodium Level 139 mmol/L (133-145)
== END ==
LOC: OLS.ACH 04:00
PROVIDERS: PCP Internal Medicine; Referring Provider Internal Medicine; Visit Provider Internal Medicine
DX: J44.0 Chronic obstructive pulmonary disease with (acute) lower respiratory infection (principal); J14 Pneumonia due to Hemophilus influenzae
CPT/HCPCS: 36415; 80048; 85027

== ENCOUNTER → 2025-01-25 05:00 | Outpatient (REF) | payer MEDICARE, SELFPAY ==
--- OUTSIDE RECORDS SUMMARY | 2025-01-25 03:37 | XMS RPT_ITS | CCD ---
Author Organization [facility] Care Team Providers Care Seismograph Observer Name Role Phone Angelo Goyal Unavailable UnavailAri Arnett Unavailable Ari Casanova Unavailable Angelo Luke Unavailable Unavaila Ari Espinoza Unavailable Kellie MCCARTY MD, DR EMILY Paul Primary Care Physician [phone] Dr. Ari Cervantes Primary Care Un jewel Negrete, Dr. Sanjuanita Rodriguez Attending UnavailJenni Giron Unavailable Alix MCCARTY MD, DR EMILY Paul Primary Care Unavailab Kristin PAREDES, WAQAS Admitting Unavailable ILAN PAREDES, WAQAS Attending Alix MCCARTY MD, DR EMILY Paul Consulting Unavailab Phuong PAREDES, DR JAZMINE Gatica Consulting Unavailable BIBIANA PRAEDES, DR EMILY Paul Primary Care Unavailab Laura PAERDES, SANJUANITA Attending Unavailable BIBIANA PAREDES, DR EMILY Paul Primary Care Unavailab Jacklyn PAREDES, DR EMILY Paul Attending Riaz Villasenor MD, DR EMILY Paul Primary Care Unavailab Jacklyn PAREDES, DR EMILY Paul Attending Riaz Villasenor MD, DR EMILY Paul Primary Care Unavailab Laura PAREDES, SANJUANITA Attending Alix MCCARTY MD, DR EMILY Paul Primary Care Unavailab Jacklyn PAREDES, DR EMILY Paul Attending Riaz Villasenor MD, DR EMILY Paul Attending Riaz Villasenor MD, DR EMILY Paul Primary Care Unavailab Jacklyn PAREDES, Emily Paul Primary Care Provider EMILY MCCARTY Primary Care Unavailable QAMAR COKNLIN Attending Unavailable EMILY MCCARTY Primary Care Unavailable MARY WISEMAN Admitting Unavailabl e EDUADRA BRADEN Attending Unavailable EMILY MCCARTY Primary Care Unavailable PORTIA RASCON Admitting Unavailable ILIANA PALENCIA Attending Unavailable Unavailable Primary Care Provider Unavailabl e Deperro OLS, Kaleb Attending Unavailable Deperro OLS, Kaleb Referring Unavailable Deperro OLS, Kaleb Attending Unavailable Deperro Sr., Kaleb Primary Care Unavailable Trip Hamilton Attending Unavailable Tacos Bender Admitting Unavailable MostTacos maier Consulting Unavailable Deperro Sr., Kaleb Primary Care Unavailable Deperro OLS, Kaleb Attending Unavailable Deperro OLS, Kaleb Attending Unavailable Deperro OLS, Kaleb Attending Unavailable Mosteller, Tacos Admitting Unavailable Mosteller Tacos Consulting Unavailable Tacos Bender Attending Unavailable Deperro Sr., Kaleb Primary Care Unavailable Trip Hamilton Attending Unavailable MarlaeletskyTrip Consulting Unavailable Deperro OLS, Kaleb Referring Unavailable Deperro OLS, Kaleb Attending Unavailable Deperro OLS, Kaleb Attending Unavailable Deperro OLS, Kaleb Referring Unavailable Deperro OLS, Kaleb Attending Unavailable ARTUR NERI Consulting Unavailable GEE GIVENS Admitting Unavailable HELEN WAN Attending Unavailabl e PAULETTE RAM Attending Unavailable Allergies Allergy Classification Reported Allergen(s) Allergy Type Date of Onset Reaction(s) Facility (4 sources) Acetaminophen / oxyCODONE; Translations: [acetaminophen-ox ycodone] Drug Allergy [facility] (4 sources) Aspartame Drug Allergy [facility] (20 sources) Codeine; Translations: [codeine] Drug Allergy 01-19-20 Rash [facility] (18 sources) LORazepam; Translations: [lorazepam] Drug Allergy 01-19-20 Mental Status Change [facility] (20 sources) Morphine; Translations: [morphine] Drug Allergy 01-19-20 Hives [facility] (4 sources) PENTobarbital; Translations: [pentobarbital] Drug Allergy [facility] (4 sources) zolpidem; Translations: [zolpidem] Drug Allergy [facility] (2 sources) Tape, plastic Allergy to substance Eruption of skin (disorder) [facility] (14 sources) Aspartame; Translations: [ASPARTAME] Drug Allergy 09-21-19 Other: See Comments [facility] (14 sources) Aspirin / oxyCODONE Hydrochloride / oxyCODONE terephthalate; Translations: [OXYCODONE [id number] ] Drug Allergy 01-19-20 Unknown [facility] (18 sources) DULoxetine; Translations: [DULOXETINE] Drug Allergy 01-19-20 Mental Status Change, Unknown [facility] (14 sources) Adhesive Tape-Silicones; Translations: [ADHESIVE TAPE-SILICONES] Drug Allergy 01-19-20 Itching [facility] (4 sources) Aspartame Drug Allergy 08-04-19 25 [facility] (4 sources) Lorazepam Propensity to adverse reactions 08-04-19 25 [facility] (4 sources) oxyCODONE Drug Allergy 08-04-19 25 [facility] (4 sources) Wound Dressing Adhesive Propensity to adverse reactions 08-04-19 25 [facility] (1 source) Adhesive Tape Drug allergy (disorder) 04-17-19 25 [facility] (1 source) Aspartame Drug Allergy 04-17-19 25 [facility] (1 source) DULoxetine Drug Allergy 04-17-19 25 [facility] (1 source) LORazepam Drug Allergy 04-17-19 25 [facility] (1 source) Morphine Drug Allergy 04-17-19 25 [facility] (1 source) oxyCODONE Drug Allergy 04-17-19 25 [facility] Medications Current Medications Medication Drug Class(es) Dates Sig (Normalized) Sig (Original) Albuterol (Eqv-Proventil HFA) 90 mcg/inh inhalation aerosol (2 sources) Start: 04-02-2022 Albuterol (Eqv-Proventil HFA) 90 mcg/inh inhalation aerosol 2 inh, Inhalation, QID, PRN NEEDED FOR WHEEZING, # 26.8 gram(s), 3 Refill(s), Pharmacy: [facility] ([facility]), 152, cm, 02/21/22 13:28:00 EST, Height, kg, 02/21/22 13:28:00 EST, Dosing Weight Start Date: 04/02/22 Status: Ordered albuterol 0.833 mg/ml / ipratropium bromide 0.167 mg/ml inhalation solution (14 sources) Anticholinergic, beta2-Adrenergic Agonist Start: 08-04-2024 End: [...] QID, # 30 EA, 3 Refill(s), Pharmacy: [facility] #[id number], 155, cm, 02/12/22 22:07:00 EST, Height, kg, 02/12/22 22:07:00 EST, Dosing Weight Start Date: 02/16/22 Status: Ordered Start: 10-31-2020 take 1 dose by inhal ation four times daily albuterol-ipratropium 2.5 mg-0.5 mg/3 mL inhalation solution Dose = 3 mL, Inhalation, QID, # 30 EA, 3 Refill(s), Pharmacy: [facility] #[id number], 152, cm, 09/05/20 14:17:00 EDT, Height, kg, 09/05/20 14:17:00 EDT, Dosing Weight Start Date: 10/31/20 Status: Ordered amLODIPine 5 mg oral tablet (20 sources) Dihydropyridine Calcium Channel Chelita Start: 07-01-2023 End: 08-11-2024 take 1 tablet by mouth every twenty-four hours amLODIPine (Norvasc) 5 MG tablet Take 5 mg by mouth Every 24 hours. 07/01/2023 Active Start: 01-18-2019 take 1 tablet by shahzad once daily amLODIPine (NORVASC) 5 mg tablet Take 5 mg by mouth once daily. 01/18/2019 Active amoxicillin 875 mg / clavulanate 125 mg oral tablet (1 source) Penicillin-class Antibacterial Start: 02-16-2022 End: 02-22-2022 take 1 tablet by mouth every twelve hours amoxicillin-clavulanate 875 mg-125 mg oral tablet 1 tab(s), Oral, q12h, X 6 day(s), # 12 tab(s), 0 Refill(s), 02/22/22 13:58:00 EST, Pharmacy: [facility] #[id number], 155, cm, 02/12/22 22:07:00 EST, Height, 102.3 Start Date: 02/16/22 Stop Date: 02/22/22 Status: Ordered ampicillin 500 mg oral capsule (1 source) Penicillin-class Antibacterial Start: 01-22-2021 End: 01-29-2021 ampicillin 500 mg oral capsule Dose : 500 mg = 1 cap(s), Oral, QID, X 7 day(s), # 28 cap(s), 0 Refill(s), 01/29/21 13:28:00 EST, Pharmacy: [facility] #[id number], Recurrent UTI OAB (overactive bladder), 155, cm, 01/22/21 13:03:00 EST, Height, 100.5, kg, 01/22/21 13:03:00 EST... Start Date: 01/22/21 Stop Date: 01/29/21 Status: Ordered aspirin 325 mg delayed release oral tablet (4 sources) Platelet Aggregation Inhibitor, Nonsteroidal Anti-inflammatory Drug Start: 01-21-2018 aspirin 325 mg oral delayed release tablet Dose : 325 mg = 1 tab(s), Oral, qDay, 0 Refill(s) Start Date: 11/14/18 Status: Ordered Start: 01-21-2018 aspirin 325 mg [...] Active Start: 09-22-2023 take 1 tablet by shahzad every eight hours as needed baclofen 10 mg tablet Take 1 tablet by mouth three times a day as needed. 09/22/2023 Active Start: 01-27-2023 take 1 tablet by shahzad th three times daily baclofen 10 mg oral tablet 1 tab(s), Oral, TID, # 270 tab(s), 2 Refill(s), Pharmacy: [facility], 152, cm, 10/28/22 14:22:00 EDT, Height, kg, 10/28/22 14:22:00 EDT, Dosing Weight Start Date: 01/27/23 Status: Ordered Start: 01-28-2022 take 1 tablet by shahzad three times daily baclofen 10 mg oral tablet See Instructions, TAKE 1 TABLET BY MOUTH THREE TIMES DAILY, # 90 tab(s), 0 Refill(s), Pharmacy: [facility] ([facility]), 155, cm, 01/23/22 15:18:00 EST, Height, kg, 01/23/22 15:18:00 EST, Dosing Weight Start Date: 01/28/22 Status: Ordered Start: 10-08-2020 take 1 tablet by shahzad three times daily baclofen 10 mg oral tablet See Instructions, TAKE 1 TABLET BY MOUTH THREE TIMES DAILY, # 90 tab(s), 2 Refill(s), Pharmacy: [facility] #[id number], 152, cm, 09/05/20 14:17:00 EDT, Height, kg, 09/05/20 14:17:00 EDT, Dosing Weight Start Date: 10/08/20 Status: Ordered breath-actuated 120 actuat beclomethasone dipropionate 0.04 mg/actuat metered dose inhaler (18 sources) Corticosteroid Start: 06-11-2023 take 1 dose by inhalation twice daily Qvar Redihaler 40 mcg/inh inhalation aerosol Dose = 1 puff(s), Inhalation, BID, # 10.6 gram(s), 4 Refill(s), Pharmacy: [facility], 152.4, cm, 05/15/23 13:11:00 EST, [...] 06/11/2023 Active benzonatate 100 mg oral capsule (17 sources) Non-narcotic Antitussive Start: 09-22-2023 take 1 capsule by mouth three times daily as needed for cough benzonatate (Tessalon) 100 MG capsule Take 100 mg by mouth 3 times daily as needed for cough. 09/22/2023 Active bisacodyl 10 mg rectal suppository (4 sources) Stimulant Laxative Start: 11-11-2023 take 10 mg rectal route every twenty-four hours as needed for constipation bisacodyl (Dulcolax) 10 MG suppository Insert 10 mg into the rectum Daily as needed for constipation. 11/11/2023 Active clotrimazole 10 mg/ml topical cream (3 sources) Azole Antifungal Start: 06-12-2021 clotrimazole 1% topical cream Apply 1 vidhya, Topical, BID, PRN Rash, # 30 gram(s), 3 Refill(s), Pharmacy: [id number], 152, cm, 02/08/21 13:40:00 EST, Height, 101.2, kg, 02/08/21 13:40:00 EST, Dosing Weight Start Date: 06/12/21 Status: Ordered Start: 09-05-2020 clotrimazole 1 % topical cream Apply 1 vidhya, Topical, BID, PRN Rash, # 30 gram(s), 0 Refill(s), Pharmacy: [facility] #[id number], 152, cm, 09/05/20 14:17:00 EDT, Height, 97.2, [...] qDay, # 30 cap(s), 1 Refill(s), Pharmacy: [facility] #[id number], Medicare annual wellness visit, subsequent COPD (chronic obstructive pulmonary disease), 152, cm, 12/11/20 14:39:00 EDT, Height, kg, 12/11/20 14:39... Start Date: 12/11/20 Status: Ordered escitalopram 10 mg oral tablet (6 sources) Serotonin Reuptake Inhibitor Start: 05-01-2024 End: [...] 03/06/20 Status: Ordered take [address] [facility] once daily esomeprazole magnesium (NEXIUM ORAL) Take 1 capsule by mouth once daily. 0 Active Eucerin topical cream (1 source) Start: 01-23-2022 Eucerin topica l cream Apply 1 vidhya, Topical, BID, PRN as needed for dry skin, # 120 gram(s), 0 Refill(s), Pharmacy: [facility], Cream, 155, cm, 01/23/22 15:18:00 EST, Height, [...] DAILY, # 31.8 gram(s), 5 Refill(s), Pharmacy: [facility] #[id number], 152, cm, 09/05/20 14:17:00 EDT, Height, kg, 09/05/20 14:17:00 EDT, Dosing Weight Start Date: 10/12/20 Status: Ordered 120 actuat fluticasone propionate 0.044 mg/actuat metered dose inhaler (3 sources) Corticosteroid Start: 06-12-2022 Flovent HFA 44 mcg/inh inhalation aerosol 2 inh, Inhalation, BID, # 31.8 gram(s), 11 Refill(s), Pharmacy: [facility] ([facility]), 152.4, cm, 05/14/22 16:04:00 EST, [...] BID, # 31.8 gram(s), 3 Refill(s), Pharmacy: [facility], 152, cm, 07/12/21 13:08:00 EDT, [...] Start: 08-07-2021 take 1 tablet by shahzad once daily labetalol 200 mg oral tablet 1 tab(s), Oral, qDay, # 90 tab(s), 3 Refill(s), Pharmacy: [facility], 152, cm, 07/12/21 13:08:00 EDT, Height, kg, 07/12/21 13:08:00 EDT, Dosing Weight Start Date: 08/07/21 Status: Ordered Start: 10-26-2020 take 1 tablet by shahzad once daily labetalol 200 mg oral tablet See Instructions, TAKE 1 TABLET BY MOUTH EVERY DAY, # 90 tab(s), 1 Refill(s), Pharmacy: [facility] #[id number], 152, cm, 09/05/20 14:17:00 EDT, Height, kg, [...] qDay, # 100 tab(s), 3 Refill(s), Pharmacy: [facility] ([facility]), 155, cm, 07/25/22 13:05:00 EDT, Height, kg, 07/25/22 13:05:00 EDT, Dosing Weight Start Date: 07/30/22 Status: Ordered Start: 08-13-2021 End: 10-12-2021 levothyroxine 175 mcg (0.175 mg) oral tablet Dose : 175 mcg = 1 tab(s), Oral, qDay, # 30 tab(s), 1 Refill(s), Pharmacy: [facility], Hypothyroidism, 155, cm, 08/13/21 14:43:00 EDT, Height, kg, 08/13/21 14:43:00 EDT, Dosing Weight Start Date: 08/13/21 Stop Date: 10/12/21 Status: Ordered Start: 09-14-2020 take 1 tablet by shahzad th once daily levothyroxine 150 mcg (0.15 mg) oral tablet See Instructions, TAKE 1 TABLET BY MOUTH EVERY DAY EXCEPT ON FRIDAY, # 79 tab(s), 3 Refill(s), Pharmacy: [facility] #[id number], 152, cm, 09/05/20 14:17:00 EDT, Height, kg, 09/05/20 14:17:00 EDT, Dosing Weight Start Date: 09/14/20 Status: Ordered levothyroxine (S YNTHROID) 150 mcg tablet Take 137 mcg by mouth daily before breakfast. Active take 1 tablet by shahzad th once daily levothyroxine (SYNTHROID) 150 mcg tablet Take 150 mcg by mouth once daily. 0 Active loperamide hydrochloride 2 mg oral tablet (4 sources) Opioid Agonist Start: 04-20-2024 take 1 [...] pain, # 30 tab(s), 2 Refill(s), Pharmacy: [facility], 155, cm, 08/13/21 14:43:00 EDT, Height Start Date: 08/13/21 Status: Ordered metoclopramide 5 mg oral tablet (4 sources) Dopamine-2 Receptor Antagonist Start: 06-05-2023 take 1 tablet by mouth three times daily, then take 2 tablets by mouth at bedtime metoclopramide 5 mg oral tablet 1 tab(s), Oral, TID, 30 MINUTES BEFORE 2 MEALS AND AT BEDTIME, # 300 tab(s), 0 Refill(s), Pharmacy: [facility], 152.4, cm, 05/15/23 13:11:00 EST, [...] BEDTIME)., # 270 tab(s), 1 Refill(s), Pharmacy: [facility] ([facility]), 155, cm, 01/23/22 15:18:00 EST, Height, kg, 01/23/22 15:18:00 EST,... Start Date: 01/28/22 Status: Ordered Start: 12-19-2020 take 1 tablet by shahzad th three times daily before mealtime metoclopramide 5 mg oral tablet See Instructions, TAKE 1 TABLET BY MOUTH THREE TIMES DAILY BEFORE MEALS, # 270 tab(s), 0 Refill(s), Pharmacy: [facility] #[id number], 152, cm, 12/11/20 14:39:00 EDT, Height, kg, [...] Active Start: 08-07-[address] [facility] once daily Myrbetriq 25 mg oral tablet, extended release 2 tab(s), Oral, qDay, # 180 tab(s), 3 Refill(s), Pharmacy: [facility], 152, cm, 07/12/21 13:08:00 EDT, Height, kg, 07/12/21 13:08:00 EDT, Dosing Weight Start Date: 08/07/21 Status: Ordered Start: 12-11-[address] [facility] once daily Myrbetriq 25 mg oral tablet, extended release See Instructions, TAKE 2 TABLET BY MOUTH EVERY DAY, # 90 tab(s), 1 Refill(s), other reason (Rx), Dosing Weight Start Date: 12/11/20 Status: Ordered Start: 12-11-2020 take 25 mg by mouth twice gio y MYRBETRIQ 25 mg Tb24 Take 25 mg by mouth two times a day. 12/11/2020 Active Hzqlc-2-PQL-EPA-Fish Oil (FI SH OIL) 1,000 mg (120 mg-180 mg) cap (13 sources) take 1 capsule by mouth twice daily Vwolk-2-ZNM-EPA-Fish Oil (FISH OIL) 1,000 mg (120 mg-180 mg) cap Take 4 g by mouth two times a day. Active take 1 capsule by mouth twice da horace Xgpno-9-KNS-EPA-Fish Oil (FISH OIL) 1,000 mg (120 mg-180 [...] Ordered Start: 01-16-20[address] [facility] once daily at bedtime omeprazole 20 mg oral delayed release capsule 1 cap(s), Oral, qHS, # 90 cap(s), 3 Refill(s), Pharmacy: [facility] ([facility]), 155, cm, 11/15/21 13:53:00 EDT, Height, kg, 11/15/21 13:53:00 EDT, Dosing Weight Start Date: 01/16/22 Status: Ordered Start: 12-09-2019 omeprazole 20 mg oral delayed release capsule Dose : 20 mg = 1 cap(s), Oral, qHS, # 90 cap(s), 4 Refill(s), Pharmacy: [facility] #[id number], 155, cm, 10/18/19 15:42:00 EDT, Height, kg, 10/18/19 15:42:00 EDT, Dosing Weight Start Date: 12/09/19 Status: Ordered ondansetron 4 mg oral tablet (4 sources) Serotonin-3 Receptor Antagonist Start: 04-20-2024 take [...] cap(s), 0 Refill(s), 02/17/22 13:59:00 EST, Pharmacy: [facility] #[id number], 155, cm, 02/12/22 22:07:00 EST, Height Start Date: 02/16/22 Stop Date: 02/17/22 Status: Ordered prednisoLONE acetate 10 mg/ml ophthalmic suspension (13 sources) Corticosteroid Start: 08-21-2023 prednisoLONE acetate (PRED FORTE) 1 % ophthalmic suspension 08/21/2023 Active predniSONE 10 mg oral tablet (7 sources) Start: 08-12-2024 End: 09-01-2024 predniSONE (Deltasone) 10 MG tablet Take 2 tablets (20 mg) by mouth daily for 2 days, THEN 1 tablet (10 mg) daily for 2 days. Do not start before August 12, 2024. 6 tablet 08/12/2024 09/01/2024 Active Start: 08-12-2024 End: 08-11-2024 take 10 mg by mouth once daily 10 mg, Oral, Daily, Fir st dose on Irta 08/12/24 at 0900, For 2 doses Start: [...] tab(s), 0 Refill(s), 02/25/22 14:00:00 EST, Pharmacy: [facility] #[id number], 155, cm, 02/12/22 22:07:00 EST, Height Start Date: 02/16/22 Stop Date: 02/25/22 Status: Ordered Prescription MISCellaneous (2 sources) Start: 10-22-2021 Prescription MISCellaneous See Instructions, Medihoney--aplly once daily to wound., # 1 EA, 1 Refill(s), Pharmacy: [facility], 152, cm, 10/22/21 14:47:00 EDT, Height, 102.6 [...] Ordered traZODone hydrochloride 50 mg oral tablet (6 sources) Serotonin Reuptake Inhibitor Start: 06-01-2024 End: [...] Sig (Original) acetaminophen 325 mg oral tablet (11 sources) Start: 08-11-2024 End: 08-11-2024 take 1 [...] wheezing, # 3 EA, 1 Refill(s), Pharmacy: [facility] ([facility]), 155, cm, 01/23/22 15:18:00 EST, Height, kg, 01/23/22 15:18:00 EST, Dosing Weight Start Date: 01/28/22 Stop Date: 07/27/22 Status: Ordered Start: 07-04-2020 take 2 puff(s) by mo uth four times daily as needed for wheezing Proventil HFA MDI (90 mcg/inh) R/O COVID19 inhalation aerosol See Instructions, INHALE 2 PUFFS BY MOUTH FOUR TIMES DAILY NEEDED FOR WHEEZING, # 6.7 gram(s), 3 Refill(s), Pharmacy: [facility] #[id number], 155, cm, 03/13/20 14:45:00 EST, Height, kg, 03/13/20 14:45:00 EST, Dosing Weight Start Date: 07/04/20 Status: Ordered azithromycin (Zithromax) 500 mg in sodium chloride 0.9 % 250 mL IVPB (ADD-Brillion) (2 sources) Start: 08-04-2024 End: 08-05-2024 500 mg, IntraVENous, Administer over 60 Minutes, Every 24 hours, First dose on Fri08/04/24 at 1100, ADD-Brillion bag, Suspected Indication (Select all that apply): [...] prophylaxis, # 90 cap(s), 1 Refill(s), Pharmacy: [facility], 155, cm, 08/13/21 14:43:00 EDT, Height, 102.8, kg, 08/13/21 14:43:00 EDT, Dosing Weight Start Date: 09/03/21 Status: Ordered Start: 01-22-2021 cephalexin 250 mg oral capsule Dose : 250 mg = 1 cap(s), Oral, Daily, UTI prophylaxis, # 90 cap(s), 3 Refill(s), Pharmacy: [facility] #[id number], 155, cm, 01/22/21 13:03:00 EST, Height, 100.5, kg, 01/22/21 13:03:00 EST, Dosing Weight Start Date: 01/22/21 Status: Ordered docusate sodium 50 mg / sennosides, assisted 8.6 mg oral tablet (6 sources) Start: 08-04-2024 End: 08-11-2024 take 1 [...] qDay, # 90 tab(s), 6 Refill(s), Pharmacy: [facility], 155, cm, 09/27/21 13:56:00 EDT, Height Start [...] anxiety, # 120 cap(s), 5 Refill(s), Pharmacy: [facility], 152, cm, 10/28/22 14:22:00 EDT, [...] QID, # 360 cap(s), 1 Refill(s), Pharmacy: [facility], 155, cm, 08/13/21 14:43:00 EDT, Height, kg, 08/13/21 14:43:00 EDT, Dosing Weight Start Date: 09/20/21 Status: Ordered Start: 12-06-2020 take 1 capsule by mo uth three times daily hydrOXYzine pamoate 50 mg oral capsule See Instructions, TAKE 1 CAPSULE BY MOUTH THREE TIMES DAILY, # 270 cap(s), 1 Refill(s), Pharmacy: [facility] #[id number], 152, cm, 09/05/20 14:17:00 EDT, Height, kg, 09/05/20 14:17:00 EDT, Dosing Weight Start Date: 12/06/20 Status: Ordered Start: 12-06-2020 hydrOXYzine pa moate (VISTARIL) 50 mg capsule Take 25 mg by mouth three times a day. 12/06/2020 Active Start: 12-06-2020 take 1 capsule by mo uth every six hours as needed hydrOXYzine pamoate [...] reach optimal image enhancement polyethylene glycol [id number] [id number] mg powder for oral solution (2 sources) Osmotic Laxative Start: 08-03-2024 End: 08-11-2024 take 17 g by mouth every twenty-four hours as needed for constipation microencapsulated potassium chloride 10 meq extended release oral tablet (15 sources) Start: 08-04-2024 End: 08-11-2024 20 mEq, Oral, Every 12 hours, First dose on Fri08/04/24 at 2100, Best given with food and a glass of water to minimize gastric irritation. Do not crush or chew. Start: 11-12-2023 take 1 tablet by shahzad th every twelve hours potassium chloride CR (K-Tab) 20 MEQ ER tablet Take 20 mEq by mouth every 12 hours. 11/12/2023 Active Start: 03-28-2023 potassium chlo ride 10 mEq oral capsule, extended release Dose : 30 mEq = 3 cap(s), Oral, BID, # 400 cap(s), 3 Refill(s), Pharmacy: [facility], 152, cm, 02/03/23 13:41:00 EST, Height, kg, 02/03/23 13:41:00 EST, Dosing Weight Start Date: 03/28/23 Status: Ordered Start: 01-22-2022 take 1 capsule by [facility] twice daily potassium chloride 10 mEq oral capsule, extended release 1 cap(s), Oral, BID, # 180 cap(s), 3 Refill(s), Pharmacy: [facility] ([facility]), 155, cm, 11/15/21 13:53:00 EDT, Height, kg, 11/15/21 13:53:00 EDT, Dosing Weight Start Date: 01/22/22 Status: Ordered Start: 03-13-2020 potassium chlo ride 10 mEq oral capsule, extended release Dose : 10 mEq = 1 cap(s), Oral, BID, # 180 cap(s), 3 Refill(s), Pharmacy: [facility] #[id number], 155, cm, 03/13/20 14:45:00 EST, Height, kg, 03/13/20 14:45:00 EST, Dosing Weight Start Date: 03/13/20 Status: Ordered take 1 tablet by [facility] twice daily potassium chloride ER (KLOR-CON) 20 [...] (2 times per day), First dose on 08/03/24 at 2240 Start: 08-03-2024 End: 08-11-2024 stomahesive in petrolatum (E T Mix) (4 sources) Start: 08-05-2024 End: 08-11-2024 Topical, Every 8 hours, Firs t dose on Rita 08/05/24 at 1430, Nursing staff to perform dressing change: Right buttock: Pressure Injury (DTI) - Clean with soap and water, apply ET mix then leave LISA TID and PRN Start: 08-05-2024 End: 08-11-2024 Topical, PRN, dry skin, Star ting on Rita 08/05/24 at 1401, Nursing staff to perform dressing change: Right buttock: Pressure Injury (DTI) - Clean with soap and water, apply ET mix then leave CLAY [employer] TID and PRN traMADol hydrochloride 50 mg [...] conditions (4 sources) Urinary incontinence 07-18-2020 Chronic Hypertension with complications and secondary hypertension (2 sources) Hypertensive heart failure; Translations: [Hypertensive heart disease with heart failure] Chronic Malaise and fatigue (13 sources) Asthenia; Translations: [Other malaise] 09-23-2023 Episodic Mood disorders (6 sources) Chronic depression; Translations: [Depressive disorder] 07-18-2020 Chronic Osteoporosis (4 sources) Osteoporosis 08-03-2018 Chronic Other acquired deformities (2 sources) Lumbar spondylolisthesis 04-08-2022 Episodic Other aftercare (1 source) Post-discharge follow-up; Translations: [Encounter for follow-up examination after completed treatment for conditions other than malignant neoplasm] 09-01-2024 Episodic Other aftercare (2 sources) Encounter for follow-up examination after completed treatment for conditions other than malignant neoplasm; Translations: [Encounter for follow-up examination after completed treatment for conditions other than malignant neoplasm] Onset: 5 Episodic Other connective tissue disease (3 sources) [...] initial encounter; Translations: [Traumatic rhabdomyolysis, initial encounter ([facility])] Onset: 4 Episodic Other lower respiratory disease [...] caused by tuberculosis or sexually transmitted disease) (6 sources) Pneumococcal pneumonia; Translations: [Pneumonia due to Streptococcus pneumoniae] Onset: 5 Episodic Pulmonary heart disease (1 source) Pulmonary hypertension 09-02-2022 Chronic Residual codes; unclassified (1 source) Obstructive sleep apnea syndrome; Translations: [Obstructive sleep apnea (adult) (pediatric)] 09-01-2024 Chronic Residual codes; unclassified (2 sources) Obstructive sleep apnea (adult) (pediatric); Translations: [Obstructive sleep apnea (adult) (pediatric)] Onset: 5 Chronic Residual codes; unclassified (3 sources) Needs influenza immunization 12-11-2020 Episodic Residual codes; unclassified (3 sources) Swelling - edema - symptom 02-08-2021 Episodic Residual codes; unclassified (1 source) Altered mental status, unspecified; Translations: [Altered mental status, unspecified altered mental status type] Onset: 4 Episodic Respiratory failure; insufficiency; arrest (adult) (3 sources) Acute on chronic hypoxemic respiratory failure; Translations: [Acute and chronic respiratory failure with hypoxia] Onset: 5 09-01-2024 Chronic Respiratory failure; insufficiency; arrest (adult) (16 sources) Acute respiratory failure; Translations: [Acute respiratory failure with hypoxia] Onset: 5 Episodic Screening and history of mental health and substance abuse codes (3 sources) Tobacco use and exposure - finding; Translations: [Personal history of nicotine dependence] Onset: 5 09-01-2024 Episodic Septicemia (except in labor) (13 sources) [...] anus and rectum] Onset: 12-31-2022 01-13-2023 Episodic Genitourinary symptoms and ill-defined conditions (10 sources) Nocturia; Translations: [Abnormal urinalysis] Onset: 02-06-2024 07-24-2020 Episodic Influenza (4 sources) Influenza due to Influenza A virus; Translations: [Influenza due to identified novel influenza A virus with other respiratory manifestations] Onset: 02-12-2022 Episodic Results Test Name Value Interpretation Reference Range Facility 36on 09-01-2024 36 (2) Trelegy 200 MCG Sample Lot# [id number] Exp: 02/01 Normal [facility] 37on 09-01-2024 37 YOUR APPOINTMENT TODAY WAS WITH THE [facility] LUNG NODULE CLINIC, COPD CLINIC, PULMONARY AND SLEEP MEDICINE OFFICE. PLEASE CALL OUR OFFICE AT [phone] for our [place] office location or [phone] for our [place] location, IF YOU HAVE NOT RECEIVED YOUR TEST RESULTS 7 DAYS AFTER TESTING IS COMPLETED. PLEASE REMEMBER TO REQUEST REFILLS AT YOUR OFFICE VISITS. PHONE/FAX REQUESTS REQUIRE 48-72 HOURS FOR RESPONSE. A FRIENDLY REMINDER COPAYS ARE DUE AT TIME OF SERVICE. THANK YOU. Our Patients Are Important! We want to improve and you can help. After your visit we want you to feel: Listened to, Respected and have your health care explained. You may receive a survey asking you about your visit. Please complete the survey. We will use your feedback to make improvements. COVID-19 VACCINATION INFORMATION: PH. [phone] [email or web address] S/VACCINE [facility] Central Scheduling [phone] [facility] Sleep Scheduling [phone] Normal [facility] Office Visiton 09-01-2024 Follow-up visit [id number] Krish Peralta 1940 F Date Provider Department Center 09/01/2024 [facility]ULETTE [facility]ULM None No family history on file Level of Service:06554 [place] OFFICE/OUTPATIENT ESTABLISHED MOD MDM 30 MIN Reason for Visit and Comments: Hospital Follow-up [832] COPD [313] - PNEUMONIA, HFLU, ARF,-O2 @ NIGHT PRN Normal [facility] Progress Noteon 09-01-2024 Progress Note [facility] Medicine [address] [place] [address] Date of Service: 09/01/2024 Visit type: An Established patient Chief Complaint/Reason for Referral: Hospital Follow-up and COPD (PNEUMONIA, HFLU, ARF,-O2 @ NIGHT PRN) SUBJECTIVE History of Present Illness: Krish Peralta ( 1940) is a 83 y.o. 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 Rhinovirus and haemophilus influenzae. Completed breathing treatments, steroids, abx. Baseline oxygen 2L and wears 4L at night. Followed by pulmonary Presents today accompanied by diesel truck driver, Asim, from [facility] where patient resides. Patient is known as a poor historian and poor short term memory. Able to answer everything appropriately. Here today on room air, SpO2 90%. Wears supplemental oxygen as needed during the day and wearing 2-4 liters at night to sleep. Reports does not wish to wear any oxygen during the day even if she drops below 90%. Has albuterol inhaler and nebulizer as needed, no maintenance inhaler. Complains of having shortness of breath at times each day accompanied with wheezing and coughing. Remains in wheelchair mostly, able to take steps to get in chair, bed or to bathroom. Increased work of breathing with activity. Smoking history is vague, states only smoked briefly when she was younger, and around second hand smoke most of her life. Claustrophobic cannot use PAP therapy [place] asthma Pneumonia vaccine: Seasonal Flu vaccine: COVID-19 vaccine: MMRC Dyspnea Scale: Grade Description of Breathlessness 0 I only get breathless with strenuous exercise. 1 I get short of breath when hurrying on level ground or walking up a slight hill. 2 On level ground, I walk slower than people of the same age because of breathlessness, or have to stop for breath when walking at my own pace. 3 I stop for breath after walking about 100 yards or after a few minutes on level ground. 4 I am too breathless to leave the house or I am breathless when dressing. OBJECTIVE MEDICAL HISTORY: Medical History[1] SURGICAL HISTORY: Surgical History[2] ALLERGIES: Allergies[3] MEDICATIONS: Current Medications[4] SOCIAL HISTORY: Social History Tobacco Use Smoking status: Never Smokeless tobacco: Never Substance Use Topics Alcohol use: Not on file FAMILY HISTORY: Family History[5] REVIEW OF SYSTEMS: Review of Systems Constitutional: Negative for activity change, chills, fatigue and fever. HENT: Negative for congestion. Respiratory: Positive for cough, chest tightness and wheezing. Negative for shortness of breath. Cardiovascular: Negative for chest pain, palpitations and leg swelling. Neurological: Negative for light-headedness and headaches. VITAL SIGNS: BP 98/62 Pulse 67 Temp 36.5 ?C (97.7 ?F) (Temporal) Ht 5' (1.524 m) SpO2 90% BMI 42.97 kg/m? PHYSICAL EXAM: Physical Exam Constitutional: General: She is not in acute distress. Appearance: She is obese. She is not ill-appearing. HENT: Head: Normocephalic. Eyes: General: No scleral icterus. Right eye: No discharge. Left eye: No discharge. Cardiovascular: Rate and Rhythm: Normal rate and regular rhythm. Pulses: Normal pulses. Heart sounds: Normal heart sounds. Pulmonary: Effort: No respiratory distress. Breath sounds: Examination of the right-lower field reveals decreased breath sounds. Examination of the left-lower field reveals decreased breath sounds. Decreased breath sounds present. No wheezing, rhonchi or rales. Skin: General: Skin is warm and dry. Neurological: Mental Status: She is alert and oriented to person, place, and time. Psychiatric: Behavior: Behavior normal. Cognition and Memory: Memory is impaired. Comments: Poor historian, trouble with short term memory. DATA REVIEWED: PFT's--none on file CXR--08/06/2024 IMPRESSION: Lines, tubes, and devices: None. Lungs [...] spine and shoulders. Incompletely visualized lumbar fusion hardware CT Chest/CTA Chest/CT Lung Screening-- none on file TTE-- 08/06/2024 Left Ventricle: Not well visualized. Left ventricle is smaller than normal. Moderately i (more content not included)... Normal [facility] Basic Metabolic Profile (BMP )on 08-18-2024 BUN/CRE 10.4 RATIO Normal 10-20 [facility] Comment on above: Order Comment: 103.1 Performed By: #### L 100.0500, L500.2500 #### [facility] [address] [place], [address] Calcium [Mass/Vol] 9.4 mg/dL Normal 7.6-11.0 [facility] Comment on above: Order Comment: 103.1 Performed By: #### L 100.0500, L500.2500 #### [facility] [address] [place], [address] Chloride [Moles/Vol] 100 mmol/L Normal 98-108 [facility] Comment on above: Order Comment: 103.1 Performed By: #### L 100.0500, L500.2500 #### [facility] [address] [place], [address] CO2 [Moles/Vol] 28.5 mmol/L Normal 21.0-32.0 [facility] Comment on above: Order Comment: 103.1 Performed By: #### L 100.0500, L500.2500 #### [facility] [address] [place], [address] Creatinine [Mass/Vol] 0.84 mg/dL Normal 0.70-1.20 [facility] Comment on above: Order Comment: 103.1 Performed By: #### L 100.0500, L500.2500 #### [facility] [address] [place], [address] GAP 10 Normal 5-15 [facility] Comment on above: Order Comment: 103.1 Performed By: #### L 100.0500, L500.2500 #### [facility] [address] [place], [address] GFR/1.73 sq M.predicted among non-blacks MDRD (S/P/Bld) [Vol rate/Area] 68 mL/min/{1.73_m2} Normal >60 [facility] Comment on above: Order Comment: 103.1 Result Comment: mL/m in/1.73m2 CKD-EPI Creatinine Equation (2020) Performed By: #### L 100.0500, L500.2500 #### [facility] [address] [place], [address] Glucose [Mass/Vol] 107 mg/dL High 70-99 [facility] Comment on above: Order Comment: 103.1 Performed By: #### L 100.0500, L500.2500 #### [facility] [address] [place], [address] Potassium [Moles/Vol] 3.9 mmol/L Normal 3.3-5.1 [facility] Comment on above: Order Comment: 103.1 Performed By: #### L 100.0500, L500.2500 #### [facility] [address] [place], [address] Sodium [Moles/Vol] 139 mmol/L Normal 133-145 [facility] Comment on above: Order Comment: 103.1 Performed By: #### L 100.0500, L500.2500 #### [facility] [address] [place], [address] Urea nitrogen [Mass/Vol] 9 mg/dL Normal 4-19 [facility] Comment on above: Order Comment: 103.1 Performed By: #### L 100.0500, L500.2500 #### [facility] [address] [place], [address] CBC-Complete Blood Cnt No Di ffon 08-18-2024 Erythrocyte distribution width (RBC) [Ratio] 14.9 % High 11.6-14.6 [facility] Comment on above: Order Comment: 103.1 Performed By: #### L 400.0001, M1.0 #### [facility] [address] [place], [address] Hematocrit (Bld) [Volume fraction] 39.8 % Normal 37-47 [facility] Comment on above: Order Comment: 103.1 Performed By: #### L 400.0001, M1.0 #### [facility] [address] [place], [address] Hemoglobin (Bld) [Mass/Vol] 12.8 g/dL Normal 12.0-15.0 [facility] Comment on above: Order Comment: 103.1 Performed By: #### L 400.0001, M1.0 #### [facility] [address] [place], [address] MCH (RBC) [Entitic mass] 28.7 pg Normal 27.0-32.0 [facility] Comment on above: Order Comment: 103.1 Performed By: #### L 400.0001, M1.2199 #### [facility] [address] [place], [address] MCHC (RBC) [Mass/Vol] 32.2 g/dL Normal 32-36 [facility] Comment on above: Order Comment: 103.1 Performed By: #### L 400.0001, #### [facility] [address] [place], [address] MCV (RBC) [Entitic vol] 89.2 fL Normal 81-99 [facility] Comment on above: Order Comment: 103.1 Performed By: #### L 400.0001, #### [facility] [address] [place], [address] Platelet mean volume (Bld) [Entitic vol] 11.2 fL Normal 6.2-12.0 [facility] Comment on above: Order Comment: 103.1 Performed By: #### L 400.0001, #### [facility] [address] [place], [address] Platelets (Bld) [#/Vol] 100 10*3/uL Low 150-450 [facility] Comment on above: Order Comment: 103.1 Performed By: #### L 400.0001, #### [facility] [address] [place], [address] RBC (Bld) [#/Vol] 4.46 10*6/uL Normal 4.2-5.4 [facility] Comment on above: Order Comment: 103.1 Performed By: #### L 400.0001, #### [facility] [address] [place], [address] RDW SD 48.4 fl High 35.1-43.9 [facility] Comment on above: Order Comment: 103.1 Performed By: #### L 400.0001, #### [facility] [address] [place], [place], [address] WBC (Bld) [#/Vol] 6.4 10*3/uL Normal 4.4-11.0 [facility] Comment on above: Order Comment: 103.1 Performed By: #### L 400.0001, M100.0 #### [facility] [address] [place], [address] 36on 08-13-2024 36 COPD Navigator Note Called patient on home phone. No answer. Left Voicemail. [facility] [phone] 08-11-2024 [id number] Next Site of Care Admission Date: 08/03/2024 04:21 PM Patient Name: KRISH PERALTA Location: [address] CARDIAC U/[facility] [id number] A Date of : 1940 ------- Placement Information ------- Referral Type:Residential ICF - Return Referral ID:[id number] Provider Name:[facility]. Address 1:[address] [facility] Address 2: City:[place] Selection Factors:Returning to Facility State:[place] Normal [facility] [phone] Discharge med list transmitted to [facility] BACK TO [facility] via Careport per TCC request. [facility] [id number] Rounds this am DCP: DC today Apostolic supervisor pairing and inspecting time scheduled for 430 Facility notified RN notified with time and P# for report LODGE OFFICER tasked to send DC packet and MAR to acility [facility] BASIC METABOLIC PANELon 06-0 Anion gap [Moles/Vol] 10 mmol/L Normal 3-13 [facility] Comment on above: Performed By: #### L AB15 ####Communication Analyst: JOHAN BHANDARI ([id number])[facility] ([facility])[address] [place] [address] Calcium [Mass/Vol] 9.6 mg/dL Normal 8.8-10.0 [facility] Comment on above: Performed By: #### L AB15 ####Communication Analyst: JOHAN BHANDARI ([id number])[facility] ([facility])[address] [place] [address] [place] Chloride [Moles/Vol] 100 mmol/L Normal 98-107 [facility] Comment on above: Performed By: #### L AB15 ####Communication Analyst: JOHAN BHANDARI ([id number])[facility] ([facility])[address] [place] [address] [place] CO2 [Moles/Vol] 27 mmol/L Normal 23-31 [facility] Comment on above: Performed By: #### L AB15 ####Communication Analyst: JOHAN BHANDARI ([id number])[facility] ([facility])[address] Creatinine [Mass/Vol] 0.75 mg/dL Normal 0.57-1.11 [facility] Comment on above: Performed By: #### L AB15 ####Communication Analyst: JOHAN BHANDARI ([phone])[facility] ([facility])[address] [place] [address] [place] GLOMERULAR FILTRATION RATE ML/MIN/1.73 SQ M.PREDICTED 78.1 mL/min/1.73m*2 Normal >60.0 [facility] Comment on above: Result Comment: Calc ulation based on the Chronic Kidney Disease Epidemiology Collaboration (CKD-EPI) equation refit without adjustment for race Performed By: #### L AB15 ####Communication Analyst: JOHAN BHANDARI ([id number])[facility] ([facility])[address] Glucose [Mass/Vol] 78 mg/dL Low 82-115 [facility] Comment on above: Performed By: #### L AB15 ####Communication Analyst: JOHAN BHANDARI ([id number])[facility] ([facility])[address] Potassium [Moles/Vol] 4.1 mmol/L Normal 3.5-5.1 [facility] Comment on above: Result Comment: [facility] potassium values may be up to 0.5 mmol/L lower than serum values. Performed By: #### L AB15 ####Communication Analyst: JOHAN BHANDARI ([id number])[facility] ([facility])[address] Sodium [Moles/Vol] 137 mmol/L Normal 136-145 [facility] Comment on above: Performed By: #### L AB15 ####Communication Analyst: JOHAN BHANDARI ([id number])[facility] ([facility])[address] Urea nitrogen [Mass/Vol] 18 mg/dL Normal 9-23 [facility] Comment on above: Performed By: #### L AB15 ####Communication Analyst: JOHAN BHANDARI ([id number])[facility] ([facility])[address] Basic metabolic 1998 panelon 08-11-2024 Anion gap [Moles/Vol] 10 mmol/L 3 - 13 mmol/L [facility] Calcium [Mass/Vol] 9.6 mg/dL 8.8 - 10. 0 mg/dL [facility] Chloride [Moles/Vol] 100 mmol/L 98 - 10 7 mmol/L [facility] CO2 [Moles/Vol] 27 mmol/L 23 - 31 mmol/L [facility] Creatinine [Mass/Vol] 0.75 mg/dL 0.57 - 1.11 mg/dL [facility] GFR/1.73 sq M.predicted (S/P/Bld) [Vol rate/Area] 78.1 mL/min - PINF [facility] Comment on above: Calculation based on the Chronic Kidney Disease Epidemiology Collaboration (CKD-EPI) equation refit without adjustment for race Glucose [Mass/Vol] 78 mg/dL Low 82 - 115 mg/dL [facility] Interpretation and review of laboratory results Abnormal [facility] Potassium [Moles/Vol] 4.1 mmol/L 3.5 - 5.1 mmol/L [facility] Comment on above: Plasma potassium gustavo ues may be up to 0.5 mmol/L lower than serum values. Sodium [Moles/Vol] 137 mmol/L 136 - 145 mmol/L [facility] Urea nitrogen [Mass/Vol] 18 mg/dL 9 - 23 mg/dL [facility] CBC W Auto Differential pane l (Bld)on 08-11-2024 Basophils (Bld) [#/Vol] 0 10*3/uL 0.0 - 0.2 10*3/uL [facility] Basophils/100 WBC (Bld) 0.1 % 0.0 - 2.0 % [facility] Eosinophils (Bld) [#/Vol] 0.1 10*3/uL 0.0 - 0.5 10*3/uL [facility] Eosinophils/100 WBC (Bld) 1.5 % 0.0 - 6.0 % [facility] Erythrocyte distribution width (RBC) [Ratio] 13.9 % 11.5 - 15.0 % [facility] Hematocrit (Bld) [Volume fraction] 42.1 % 35.0 - 47.0 % [facility] Hemoglobin (Bld) [Mass/Vol] 13.7 g/dL 11.7 - 16.0 g/dL [facility] Immature granulocytes (Bld) [#/Vol] 0.1 10*3/uL High NINF - 0.1 10*3/uL [facility] Immature granulocytes/100 WBC (Bld) 1.2 % 0.0 - 2.0 % [facility] Interpretation and review of laboratory results Abnormal [facility] IPF 1 [facility] Lymphocytes (Bld) [#/Vol] 1.5 10*3/uL 1.0 - 4.3 10*3/uL [facility] Lymphocytes/100 WBC (Bld) 20.2 % 15.0 - 45.0 % [facility] MCH (RBC) [Entitic mass] 28.7 pg 26. 0 - 34.0 pg [facility] MCHC (RBC) [Mass/Vol] 32.5 % 30.5 - 36.0 % [facility] MCV (RBC) [Entitic vol] 88.1 fL 77.0 - 99.0 fL [facility] Monocytes (Bld) [#/Vol] 0.9 10*3/uL 0.0 - 0.9 10*3/uL [facility] Monocytes/100 WBC (Bld) 11.8 % 5.0 - 13.0 % [facility] Neutrophils (Bld) [#/Vol] 4.9 10*3/uL 1.8 - 7.5 10*3/uL [facility] Neutrophils/100 WBC (Bld) 65.2 % 38.0 - 82.0 % [facility] Nucleated RBC/100 WBC (Bld) [Ratio] 0 % [facility] Platelet mean volume (Bld) [Entitic vol] 9.1 fL 9.0 - 12.7 fL [facility] Platelets (Bld) [#/Vol] 114 10*3/uL Low 140 - 440 10*3/uL [facility] RBC (Bld) [#/Vol] 4.78 10*6/uL 3.80 - 5.2 0 10*6/uL [facility] WBC (Bld) [#/Vol] 7.5 10*3/uL 3.6 - 10.7 10*3/uL [facility] CBC WITH AUTO DIFFERENTIALon 08-11-2024 Basophils (Bld) [#/Vol] 0.0 10*3/uL Normal 0.0-0.2 [facility] Comment on above: Performed By: #### L [id number] ####Communication Analyst: JOHAN BHANDARI ([id number])[facility] [place] ([facility])[address] Basophils/100 WBC (Bld) 0.1 % Normal 0.0-2.0 [facility] Comment on above: Performed By: #### L [id number] ####Communication Analyst: JOHAN BHANDARI ([id number])[facility] [place] ([facility])[address] Eosinophils (Bld) [#/Vol] 0.1 10*3/uL Normal 0.0-0.5 [facility] Comment on above: Performed By: #### L [id number] ####Communication Analyst: JOHAN BHANDARI ([id number])[facility] [place] ([facility])[address] [place] [address] Eosinophils/100 WBC (Bld) 1.5 % Normal 0.0-6.0 [facility] Comment on above: Performed By: #### L [id number] ####Communication Analyst: JOHAN BHANDARI ([id number])[facility] [place] ([facility])[address] Erythrocyte distribution width (RBC) [Ratio] 13.9 % Normal 11.5-15.0 [facility] Comment on above: Performed By: #### L [id number] ####Communication Analyst: JOHAN BHANDARI ([id number])[facility] [place] ([facility])[address] Hematocrit (Bld) [Volume fraction] 42.1 % Normal 35.0-47.0 [facility] Comment on above: Performed By: #### L [id number] ####Communication Analyst: JOHAN BHANDARI ([id number])[facility] ([facility])[address] Hemoglobin (Bld) [Mass/Vol] 13.7 g/dL Normal 11.7-16.0 [facility] Comment on above: Performed By: #### L [id number] ####Communication Analyst: JOHAN BHANDARI ([id number])[facility] [place] ([facility])[address] IMMATURE GRANS % 1.2 % Normal 0.0-2.0 [facility] Comment on above: Performed By: #### L [id number] ####Communication Analyst: JOHAN BHANDARI ([id number])[facility] ([facility])[address] IMMATURE GRANS ABSOLUTE 0.1 10*3/uL High <0.1 [facility] Comment on above: Performed By: #### L [id number] ####Communication Analyst: JOHAN BHANDARI ([id number])[facility] ([facility])[address] IPF 1 Normal [facility] Comment on above: Performed By: #### L [id number] ####Communication Analyst: JOHAN BHANDARI ([id number])[facility] ([facility])[address] Lymphocytes (Bld) [#/Vol] 1.5 10*3/uL Normal 1.0-4.3 [facility] Comment on above: Performed By: #### L [id number] ####Communication Analyst: JOHAN BHANDARI ([id number])[facility] ([facility])[address] Lymphocytes/100 WBC (Bld) 20.2 % Normal 15.0-45.0 [facility] Comment on above: Performed By: #### L [id number] ####Communication Analyst: JOHAN BHANDARI ([id number])[facility] ([facility])[address] MCH (RBC) [Entitic mass] 28.7 pg Normal 26.0-34.0 [facility] Comment on above: Performed By: #### L [id number] ####Communication Analyst: JOHAN BHANDARI ([id number])[facility] [place] ([facility])[address] MCHC 32.5 % Normal 30.5-36.0 [facility] Comment on above: Performed By: #### L [id number] ####Communication Analyst: JOHAN BHANDARI ([id number])[facility] [place] (SBHLAB)[address] [place] [address] MCV (RBC) [Entitic vol] 88.1 fL Normal 77.0-99.0 S [facility] Comment on above: Performed By: #### L [id number] ####Communication Analyst: JOHAN BHANDARI ([phone])[facility] [place] (SBHLAB)[address] [place] [address] Monocytes (Bld) [#/Vol] 0.9 10*3/uL Normal 0.0-0.9 [facility] Comment on above: Performed By: #### L [id number] ####Communication Analyst: JOHAN BHANDARI ([id number])[facility] [place] (SBHLAB)[address] [place] [address] Monocytes/100 WBC (Bld) 11.8 % Normal 5.0-13.0 S [facility] Comment on above: Performed By: #### L [id number] ####Communication Analyst: JOHAN BHANDARI ([phone])[facility] [place] (SBHLAB)[address] [place] [address] NEUTROPHILS ABSOLUTE 4.9 10*3/uL Normal 1.8-7.5 [facility] Comment on above: Performed By: #### L [id number] ####Communication Analyst: JOHAN BHANDARI ([id number])[facility] [place] (SBHLAB)[address] Neutrophils/100 WBC (Bld) 65.2 % Normal 38.0-82.0 [facility] Comment on above: Performed By: #### L [id number] ####Communication Analyst: JOHAN BHANDARI ([id number])[facility] [place] (SBHLAB)[address] NRBC 0.0 /100 WBCs Normal 0.0-2.0 [facility] Comment on above: Performed By: #### L [id number] ####Communication Analyst: JOHAN BHANDARI ([id number])[facility] (SB[facility])[address] Platelet mean volume (Bld) [Entitic vol] 9.1 fL Normal 9.0-12.7 [facility] Comment on above: Performed By: #### L [id number] ####Communication Analyst: JOHAN BHANDARI ([id number])[facility] ([facility])[address] Platelets (Bld) [#/Vol] 114 10*3/uL Low 140-440 [facility] Comment on above: Performed By: #### L [id number] ####Communication Analyst: JOHAN BHANDARI ([id number])[facility] [place] (SBHLAB)[address] [place] [address] [place] RBC (Bld) [#/Vol] 4.78 10*6/uL Normal 3.80-5.20 [facility] Comment on above: Performed By: #### L [id number] ####Communication Analyst: JOHAN BHANDARI ([id number])[facility] (SB[facility]AB)[address] [place] [address] [place] WBC (Bld) [#/Vol] 7.5 10*3/uL Normal 3.6-10.7 [facility] Comment on above: Performed By: #### L [id number] ####Communication Analyst: JOHAN BHANDARI ([id number])[facility] (SBHLAB)[address] Nursing Noteon 08-11-2024 Nursing Note Patient sent with belongings with transport to facility at this time. Normal [facility] Nursing Note Report called to facility [facility], hallway 100. RN familiar with patient. Waiting on transport. Normal [facility] Progress Noteon 08-11-2024 Progress Note PHYSICAL THERAPY [facility] Treatment Note Name/MRN: Krish Peralta ([id number]) Date of : 1940 Age: 83 y.o. Room[facility]Bed: [facility] A Visit #: 5 out of 8 Discharge Recommendation: Half-Way Facility Equipment Needed: No Assessment Pt continues to make good overall progress towards established therapy goals this date. Remains limited by SOB and fatigue. Pt completed STS transfers with fww at [facility], Gait training with fww completed at [facility]/SBA. Pt tolerated all activity well and gave [...] Pt completed gait training with fww at [facility] progressing to SBAx1. Cues [...] 10 Minutes (gait x1) Chuck Ruvalcaba, PT [facility] Progress Note [facility] Pulmonary Medicine [address] [place] [address] Patient - Krish Peralta, Age - 83 y.o. - 1940 Room Number - B2-255/B2-255 A Consulting - Helen Wan DO Primary Care Physician - No primary care provider on file. Date of Admission - 08/03/2024 4:21 PM Hospital Day - 8 Chief Complaint: shortness of breath Krish Peralta is a 83 y.o. female who [...] data in the 24 hours ending 08/11/24 0908 Exam General appearance: Awake and alert intermittently [...] 16 INR PTT No results found for: "PTT" Cultures Pneumonia PCR (08/04/24): Haemophilus influenzae, rhinovirus [...] from pulmonary standpoint Darrick Marcum Pulmonary Medicine [facility] [1] amLODIPine, 5 mg, Oral, q24h enoxaparin, 30 mg, SubCUTAneous, 2 times per day escitalopram, 10 mg, Oral, Nightly furosemide, 20 mg, Oral, BID ipratropium-albuterol , 1 ampule, Nebulization, q4h WA labetalol, 200 mg, Oral, q24h levothyroxine, 137 mcg, Oral, q24h aydee (more content not included)... Normal [facility] 30on 08-10-2024 30 Problem: Knowledge Deficit Goal: Patient/family/caregi krysta demonstrates understanding of disease process, treatment plan, medications, and discharge instructions Outcome: Progressing Problem: Potential for Compromised Skin Integrity Goal: Skin Integrity is Maintained or Improved Outcome: Progressing Problem: Urinary Incontinence Goal: Perineal skin integrity is maintained or improved Outcome: Progressing Normal [facility] 30 Problem: Knowledge Deficit Goal: Patient/family/caregi [...] 08/10/2024139 by Sophy Olmos RN Outcome: Progressing Normal [facility] 30 Problem: Knowledge Deficit Goal: Patient/family/caregi [...] Goal: Promote nutritional intake Outcome: Progressing Normal [facility] [id number] 08-10-2024 [id number] COPD Navigator Note Introduced myself and explained [...] with scheduling hospital follow-up with pulmonary. Normal [facility] CBC W Auto Differential pane l (Bld)on 08-10-2024 Basophils (Bld) [#/Vol] 0 10*3/uL 0.0 - 0.2 10*3/uL [facility] Basophils/100 WBC (Bld) 0.1 % 0.0 - 2.0 % [facility] Eosinophils (Bld) [#/Vol] 0 10*3/uL 0.0 - 0.5 10*3/uL [facility] Eosinophils/100 WBC (Bld) 0.2 % 0.0 - 6.0 % [facility] Erythrocyte distribution width (RBC) [Ratio] 13.8 % 11.5 - 15.0 % [facility] Hematocrit (Bld) [Volume fraction] 41.1 % 35.0 - 47.0 % [facility] Hemoglobin (Bld) [Mass/Vol] 13.3 g/dL 11.7 - 16.0 g/dL [facility] Immature granulocytes (Bld) [#/Vol] 0.1 10*3/uL High NINF - 0.1 10*3/uL [facility] Immature granulocytes/100 WBC (Bld) 1.5 % 0.0 - 2.0 % [facility] Interpretation and review of laboratory results Abnormal [facility] IPF 1 [facility] Lymphocytes (Bld) [#/Vol] 1.4 10*3/uL 1.0 - 4.3 10*3/uL [facility] Lymphocytes/100 WBC (Bld) 15.4 % 15.0 - 45.0 % [facility] MCH (RBC) [Entitic mass] 28.7 pg 26. 0 - 34.0 pg [facility] MCHC (RBC) [Mass/Vol] 32.4 % 30.5 - 36.0 % [facility] MCV (RBC) [Entitic vol] 88.6 fL 77.0 - 99.0 fL [facility] Monocytes (Bld) [#/Vol] 1 10*3/uL High 0.0 - 0.9 10*3/uL [facility] Monocytes/100 WBC (Bld) 10.3 % 5.0 - 13.0 % [facility] Neutrophils (Bld) [#/Vol] 6.7 10*3/uL 1.8 - 7.5 10*3/uL [facility] Neutrophils/100 WBC (Bld) 72.5 % 38.0 - 82.0 % [facility] Nucleated RBC/100 WBC (Bld) [Ratio] 0 % [facility] Platelet mean volume (Bld) [Entitic vol] 9.1 fL 9.0 - 12.7 fL [facility] Platelets (Bld) [#/Vol] 133 10*3/uL Low 140 - 440 10*3/uL [facility] RBC (Bld) [#/Vol] 4.64 10*6/uL 3.80 - 5.2 0 10*6/uL [facility] WBC (Bld) [#/Vol] 9.2 10*3/uL 3.6 - 10.7 10*3/uL [facility] CBC WITH AUTO DIFFERENTIALon 08-10-2024 Basophils (Bld) [#/Vol] 0.0 10*3/uL Normal 0.0-0.2 [facility] Comment on above: Performed By: #### L [id number] ####Communication Analyst: JOHAN BHANDARI ([id number])[facility] (SBHLAB)[address] [place] [address] Basophils/100 WBC (Bld) 0.1 % Normal 0.0-2.0 S [facility] Comment on above: Performed By: #### L [id number] ####Communication Analyst: JOHAN BHANDARI ([id number])[facility] (SBHLAB)[address] Eosinophils (Bld) [#/Vol] 0.0 10*3/uL Normal 0.0-0.5 [facility] Comment on above: Performed By: #### L [id number] ####Communication Analyst: JOHAN BHANDARI ([id number])[facility] (SBHLAB)[address] [place] [address] [place] Eosinophils/100 WBC (Bld) 0.2 % Normal 0.0-6.0 [facility] Comment on above: Performed By: #### L [id number] ####Communication Analyst: JOHAN WATTSCANDY ([id number])[facility] Erythrocyte distribution width (RBC) [Ratio] 13.8 % Normal 11.5-15.0 [facility] Comment on above: Performed By: #### L [id number] ####Communication Analyst: JOHAN ALEGRIAJOHNNY ([id number])[facility] ([facility])[address] Hematocrit (Bld) [Volume fraction] 41.1 % Normal 35.0-47.0 [facility] Comment on above: Performed By: #### L [id number] ####Communication Analyst: JOHAN ALEGRIAJOHNNY ([id number])[facility] ([facility])[address] Hemoglobin (Bld) [Mass/Vol] 13.3 g/dL Normal 11.7-16.0 [facility] Comment on above: Performed By: #### L [id number] ####Communication Analyst: JOHAN WATTSCANDY ([id number])[facility] ([facility])[address] IMMATURE GRANS % 1.5 % Normal 0.0-2.0 [facility] Comment on above: Performed By: #### L [id number] ####Communication Analyst: JOHAN WATTSCANDY ([id number])[facility] ([facility])[address] IMMATURE GRANS ABSOLUTE 0.1 10*3/uL High <0.1 [facility] Comment on above: Performed By: #### L [id number] ####Communication Analyst: JOHAN WATTSCANDY ([id number])[facility] ([facility])[address] IPF 1 Normal [facility] Comment on above: Performed By: #### L [id number] ####Communication Analyst: JOHAN BHANDARI ([id number])[facility]OSPITALSujata GUTIERREZLOVELACE [facility], [facility] (SBHLAB)[address] Lymphocytes (Bld) [#/Vol] 1.4 10*3/uL Normal 1.0-4.3 [facility] Comment on above: Performed By: #### L [id number] ####Communication Analyst: JOHAN BHANDARI ([id number])[facility] HOSPITALSujata [facility] (SBHLAB)[address] Lymphocytes/100 WBC (Bld) 15.4 % Normal 15.0-45.0 [facility] Comment on above: Performed By: #### L [id number] ####Communication Analyst: JOHAN BHANDARI ([id number])[facility]OSPITALSujata GUTIERREZLOVELACE [facility], [facility] (SBHLAB)[address] [place] [address] MCH (RBC) [Entitic mass] 28.7 pg Normal 26.0-34.0 [facility] Comment on above: Performed By: #### L [id number] ####Communication Analyst: JOHAN BHANDARI ([id number])[facility] HOSPITALSujata [place] (SBHLAB)[address] [place] [address] MCHC 32.4 % Normal 30.5-36.0 [facility] Comment on above: Performed By: #### L [id number] ####Communication Analyst: JOHAN WATTSCANDY ([id number])[facility] HOSPITALSujata [facility] (SBHLAB)[address] [place] [address] MCV (RBC) [Entitic vol] 88.6 fL Normal 77.0-99.0 S [facility] Comment on above: Performed By: #### L [id number] ####Communication Analyst: JOHAN THONY ([id number])[facility] (SBHLAB)[address] Monocytes (Bld) [#/Vol] 1.0 10*3/uL High 0.0-0.9 [facility] Comment on above: Performed By: #### L [id number] ####Communication Analyst: JOHAN BHANDARI ([id number])[facility] [place] (SBHLAB)[address] Monocytes/100 WBC (Bld) 10.3 % Normal 5.0-13.0 [facility] Comment on above: Performed By: #### L [id number] ####Communication Analyst: JOHAN BHANDARI ([id number])[facility] [place] (SBHLAB)[address] NEUTROPHILS ABSOLUTE 6.7 10*3/uL Normal 1.8-7.5 [facility] Comment on above: Performed By: #### L [id number] ####Communication Analyst: JOHAN DILLONCER ([id number])[facility] [place] (SBHLAB)[address] Neutrophils/100 WBC (Bld) 72.5 % Normal 38.0-82.0 [facility] Comment on above: Performed By: #### L [id number] ####Communication Analyst: JOHAN BHANDARI ([id number])[facility] [place] (SBHLAB)[address] NRBC 0.0 /100 WBCs Normal 0.0-2.0 [facility] Comment on above: Performed By: #### L [id number] ####Communication Analyst: JOHAN BHANDARI ([id number])[facility] [place] (SBHLAB)[address] Platelet mean volume (Bld) [Entitic vol] 9.1 fL Normal 9.0-12.7 [facility] Comment on above: Performed By: #### L [id number] ####Communication Analyst: JOHAN BHANDARI ([id number])[facility] [place] (SBHLAB)[address] Platelets (Bld) [#/Vol] 133 10*3/uL Low 140-440 [facility] Comment on above: Performed By: #### L [id number] ####Communication Analyst: JOHAN BHANDARI ([id number])[facility] (SB[facility]AB)[address] RBC (Bld) [#/Vol] 4.64 10*6/uL Normal 3.80-5.20 [facility] Comment on above: Performed By: #### L [id number] ####Communication Analyst: JOHAN BHANDARI ([id number])[facility] (SBHLAB)[address] WBC (Bld) [#/Vol] 9.2 10*3/uL Normal 3.6-10.7 [facility] Comment on above: Performed By: #### L [id number] ####Communication Analyst: JOHAN BHANDARI ([id number])[facility] ([facility])[address] [place] [address] COMPREHENSIVE METABOLIC PANE Alex 08-10-2024 Albumin [Mass/Vol] 2.8 g/dL Low 3.4-4.8 [facility] Comment on above: Performed By: #### L [id number] #### Communication Analyst: JOHAN BHANDARI ([id number]) [facility] (HLAB) [address] ALP [Catalytic activity/Vol] 78 U/L Normal 40-150 [facility] Comment on above: Performed By: #### L [id number] #### Communication Analyst: JOHAN BHANDARI ([id number]) [facility] (HLAB) [address] ALT [Catalytic activity/Vol] 9 U/L Normal <30 [facility] Comment on above: Performed By: #### L [id number] #### Communication Analyst: JOHAN BHANDARI ([id number]) [facility] (HLAB) [address] Anion gap [Moles/Vol] 9 mmol/L Normal 3-13 [facility] Comment on above: Performed By: #### L [id number] #### Communication Analyst: JOHAN BHANDARI ([id number]) [facility] [place] (SBHLAB) [address] AST [Catalytic activity/Vol] 17 U/L Normal <34 [facility] Comment on above: Performed By: #### L [id number] #### Communication Analyst: JOHAN BHANDARI ([id number]) [facility] [place] (SBHLAB) [address] [place] [address] [place] Bilirubin [Mass/Vol] 0.3 mg/dL Normal <1.2 [facility] Comment on above: Performed By: #### L [id number] #### Communication Analyst: JOHAN BHANDARI ([id number]) [facility] [place] (SBHLAB) [address] Calcium [Mass/Vol] 9.4 mg/dL Normal 8.8-10.0 [facility] Comment on above: Performed By: #### L [id number] #### Communication Analyst: JOHAN BHANDARI ([id number]) [facility] [place] (SBHL[facility]) [address] [place] [address] [place] Chloride [Moles/Vol] 101 mmol/L Normal 98-107 [facility] Comment on above: Performed By: #### L [id number] #### Communication Analyst: JOHAN BHANDARI ([phone]) [facility] [place] (SBHL[facility]) [address] [place] [address] [place] CO2 [Moles/Vol] 27 mmol/L Normal 23-31 [facility] Comment on above: Performed By: #### L [id number] #### Communication Analyst: JOHAN BHANDARI ([id number]) [facility] [place] (SBHLAB) [address] [place] [address] [place] Creatinine [Mass/Vol] 0.80 mg/dL Normal 0.57-1.11 [facility] Comment on above: Performed By: #### L [id number] #### Communication Analyst: JOHAN BHANDARI ([id number]) [facility] [place] (SBHLAB) [address] GLOMERULAR FILTRATION RATE ML/MIN/1.73 SQ M.PREDICTED 72.3 mL/min/1.73m*2 Normal >60.0 [facility] Comment on above: Result Comment: Calc ulation based on the Chronic Kidney Disease Epidemiology Collaboration (CKD-EPI) equation refit without adjustment for race Performed By: #### L [id number] #### Communication Analyst: JOHAN BHANDARI ([id number]) [facility] ([facility]) [address] Glucose [Mass/Vol] 112 mg/dL Normal 82-115 [facility] Comment on above: Performed By: #### L [id number] #### Communication Analyst: JOHAN BHANDARI ([id number]) [facility] ([facility]) [address] Potassium [Moles/Vol] 4.2 mmol/L Normal 3.5-5.1 [facility] Comment on above: Result Comment: [facility] potassium values may be up to 0.5 mmol/L lower than serum values. Performed By: #### L [id number] #### Communication Analyst: JOHAN BHANDARI ([id number]) [facility] ([facility]) [address] Protein [Mass/Vol] 6.7 g/dL Normal 6.4-8.3 [facility] Comment on above: Performed By: #### L [id number] #### Communication Analyst: JOHAN BHANDARI ([id number]) [facility] ([facility]) [address] [place] [address] [place] Sodium [Moles/Vol] 137 mmol/L Normal 136-145 [facility] Comment on above: Performed By: #### L [id number] #### Communication Analyst: JOHAN BHANDARI ([id number]) [facility] ([facility]) [address] Urea nitrogen [Mass/Vol] 24 mg/dL High 9-23 [facility] Comment on above: Performed By: #### L [id number] #### Communication Analyst: JOHAN BHANDARI ([id number]) [facility] (SBHLAB) [address] [place] [address] Comprehensive metabolic 1998 panelon 08-10-2024 Albumin [Mass/Vol] 2.8 g/dL Low 3.4 - 4.8 g/dL [facility] ALP [Catalytic activity/Vol] 78 U/L 40 - 150 U/L [facility] ALT [Catalytic activity/Vol] 9 U/L NINF - 30 U/L [facility] Anion gap [Moles/Vol] 9 mmol/L 3 - 13 mmol/L [facility] AST [Catalytic activity/Vol] 17 U/L NINF - 34 U/L [facility] Bilirubin [Mass/Vol] 0.3 mg/dL NINF - 1.2 mg/dL [facility] Calcium [Mass/Vol] 9.4 mg/dL 8.8 - 10. 0 mg/dL [facility] Chloride [Moles/Vol] 101 mmol/L 98 - 10 7 mmol/L [facility] CO2 [Moles/Vol] 27 mmol/L 23 - 31 mmol/L [facility] Creatinine [Mass/Vol] 0.8 mg/dL 0.57 - 1.11 mg/dL [facility] GFR/1.73 sq M.predicted (S/P/Bld) [Vol rate/Area] 72.3 mL/min - PINF [facility] Comment on above: Calculation based on the Chronic Kidney Disease Epidemiology Collaboration (CKD-EPI) equation refit without adjustment for race Glucose [Mass/Vol] 112 mg/dL 82 - 115 mg/dL [facility] Interpretation and review of laboratory results Abnormal [facility] Potassium [Moles/Vol] 4.2 mmol/L 3.5 - 5.1 mmol/L [facility] Comment on above: Plasma potassium gustavo ues may be up to 0.5 mmol/L lower than serum values. Protein [Mass/Vol] 6.7 g/dL 6.4 - 8.3 g/dL [facility] Sodium [Moles/Vol] 137 mmol/L 136 - 145 mmol/L [facility] Urea nitrogen [Mass/Vol] 24 mg/dL High 9 - 23 mg/dL [facility] Progress Noteon 08-10-2024 Progress Note Nutrition Assessment Type and Reason for Visit: Reassess Nutrition Recommendations/Plan: Continue diet as ordered Adult diet Regular -Cabinetmaker Helper ordering meals -notified diet office of pt [...] muscle mass loss Fluid Accumulation: (moderate) Extremities Lineman A Class Strength: Not Performed Nutrition Assessment: 83 y.o [...] On: Kcal/kg Weight Used for Energy Requirements: [place] Weight for Energy Calculation (kg): 45 kg Total Energy Requirements (kcals/day): 2510-0370 (25-30 kcal/kg IBW) Weight Used for Protein Requirements: [place] Weight in Kg Used for Protein Requirements: [...] lb) (11/11/23) % Weight Change (Calculated): 11.7 [place] Body Weight (lbs) (Calculated): 100 lbs [place] Body Weight (Kg) (Calculated): 45 kg % [place] Body Weight (Calculated): 220 % BMI (kg/m2) [...] Continue current diet Kamilah Rodriguez RD Contact: *[phone] or via Secure Chat [facility] Progress Note [facility] CONSULT Note Krish Peralta AGE: 83 y.o. GENDER: female : 1940 Subjective: HISTORY of PRESENT ILLNESS HPI Krish Peralta is a 83 y.o. female who presents for a wound consult. HPI: Ms. Peralta is a 83 y.o. female with past medical history significant for COPD. Patient [facility] for shortness of breath. 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 Any questions or concerns please secure chat "ACH wound/ostomy". Thank you for the consult! I personally [...] furosemide ([place] (more content not included)... Normal [facility] Progress Note [facility] Pulmonary Medicine [address] [place] [address] Patient - Krish Peralta, Age - 83 y.o. - 1940 Room Number - B2-255/B2-255 A Consulting - Helen Wan DO Primary Care Physician - No primary care provider on file[id number] Date of Admission - 08/03/2024 4:21 PM Hospital Day - 7 Chief Complaint: shortness of breath Krish Peralta is a 83 y.o. female who [...] 16 INR PTT No results found for: "PTT" Cultures Pneumonia PCR (08/04/24): Haemophilus influenzae, rhinovirus [...] cephalexin tolerating well Darrick Marcum Pulmonary Medicine [facility] [1] amLODIPine, 5 mg, Oral, q24h cephalexin, 1,000 mg, Oral, q8h enoxaparin, 30 mg, SubCUTAneous, 2 times per day escita (more content not included)... Normal [facility] Progress Note PHYSICAL THERAPY [facility] Treatment Note Name/MRN: Krish Peralta ([id number]) Date of : 1940 Age: 83 y.o. Room[facility]Bed: [facility] A Visit #: 4 out of 8 (visits added by PT due to continued need for acute skilled PT) Discharge Recommendation: Half-Way Facility Equipment Needed: No Assessment Pt demos [...] Raw Score (No Stairs) : 15 [id number] Score: Walked 25 ft or more (i.e. [...] 08/11/24 Resolve (more content not included)... Normal [facility] 30on 08-09-2024 Problem: Knowledge Deficit Goal: Patient/family/caregi krysta demonstrates [...] Goal: Promote nutritional intake Outcome: Progressing Normal [facility] 30 Problem: Knowledge Deficit Goal: Patient/family/caregi [...] 08/09/2024154 by Sophy Olmos RN Outcome: Progressing Normal [facility] 30 Problem: Knowledge Deficit Goal: Patient/family/caregi [...] Goal: Promote nutritional intake Outcome: Progressing Normal [facility] [id number] 08-09-2024 [id number] Sent updated notes t o return back to [facility] via [facility] per TCC request. Await review and response regarding ability to accept. TCC notified. Normal [facility] CBC W Auto Differential pane l (Bld)on 08-09-2024 Basophils (Bld) [#/Vol] 0 10*3/uL 0.0 - 0.2 10*3/uL [facility] Basophils/100 WBC (Bld) 0.2 % 0.0 - 2.0 % [facility] Eosinophils (Bld) [#/Vol] 0 10*3/uL 0.0 - 0.5 10*3/uL [facility] Eosinophils/100 WBC (Bld) 0 % 0.0 - 6.0 % [facility] Erythrocyte distribution width (RBC) [Ratio] 13.6 % 11.5 - 15.0 % [facility] Hematocrit (Bld) [Volume fraction] 43 % 35.0 - 47.0 % [facility] Hemoglobin (Bld) [Mass/Vol] 14.1 g/dL 11.7 - 16.0 g/dL [facility] Immature granulocytes (Bld) [#/Vol] 0.2 10*3/uL High NINF - 0.1 10*3/uL [facility] Immature granulocytes/100 WBC (Bld) 1.8 % 0.0 - 2.0 % [facility] Interpretation and review of laboratory results Abnormal [facility] [employer] Lymphocytes (Bld) [#/Vol] 1 10*3/uL 1.0 - 4.3 10*3/uL [facility] Lymphocytes/100 WBC (Bld) 10.9 % Low 15.0 - 45.0 % [facility] MCH (RBC) [Entitic mass] 29 pg 26. 0 - 34.0 pg [facility] MCHC (RBC) [Mass/Vol] 32.8 % 30.5 - 36.0 % [facility] MCV (RBC) [Entitic vol] 88.3 fL 77.0 - 99.0 fL [facility] [employer] Monocytes (Bld) [#/Vol] 1 10*3/uL High 0.0 - 0.9 10*3/uL [facility] Monocytes/100 WBC (Bld) 11.1 % 5.0 - 13.0 % [facility] [employer] Neutrophils (Bld) [#/Vol] 7 10*3/uL 1.8 - 7.5 10*3/uL [facility] Neutrophils/100 WBC (Bld) 76 % 38.0 - 82.0 % [facility] [employer] Nucleated RBC/100 WBC (Bld) [Ratio] 0 % [facility] [employer] Platelet mean volume (Bld) [Entitic vol] 9.5 fL 9.0 - 12.7 fL [facility] [employer] Platelets (Bld) [#/Vol] 146 10*3/uL 140 - 440 10*3/uL [facility] RBC (Bld) [#/Vol] 4.87 10*6/uL 3.80 - 5.2 0 10*6/uL [facility] WBC (Bld) [#/Vol] 9.3 10*3/uL 3.6 - 10.7 10*3/uL [facility] CBC WITH AUTO DIFFERENTIALon 08-09-2024 Basophils (Bld) [#/Vol] 0.0 10*3/uL Normal 0.0-0.2 [facility] Comment on above: Performed By: #### L [id number] ####Communication Analyst: JOHAN BHANDARI ([id number])[facility] HOSPITALSujata MIRANDA (SBAB)[address] [place] [address] Basophils/100 WBC (Bld) 0.2 % Normal 0.0-2.0 [facility] Comment on above: Performed By: #### L [id number] ####Communication Analyst: JOHAN BHANDARI ([id number])[facility] [place] (SBHLAB)[address] Eosinophils (Bld) [#/Vol] 0.0 10*3/uL Normal 0.0-0.5 [facility] Comment on above: Performed By: #### L [id number] ####Communication Analyst: JOHAN BHANDARI ([id number])[facility]OSPITALA [place] (SBHLAB)[address] Eosinophils/100 WBC (Bld) 0.0 % Normal 0.0-6.0 [facility] Comment on above: Performed By: #### L [id number] ####Communication Analyst: JOHAN BHANDARI ([id number])[facility]ITALA [place] (SBHLAB)[address] Erythrocyte distribution width (RBC) [Ratio] 13.6 % Normal 11.5-15.0 [facility] Comment on above: Performed By: #### L [id number] ####Communication Analyst: JOHAN BHANDARI ([id number])[facility]ITALA [place] (SBHLAB)[address] [place] [address] Hematocrit (Bld) [Volume fraction] 43.0 % Normal 35.0-47.0 [facility] Comment on above: Performed By: #### L [id number] ####Communication Analyst: JOHAN BHANDARI ([id number])[facility]ITALA [place] (SBHLAB)[address] Hemoglobin (Bld) [Mass/Vol] 14.1 g/dL Normal 11.7-16.0 [facility] Comment on above: Performed By: #### L [id number] ####Communication Analyst: JOHAN BHANDARI ([id number])[facility]ITALA [place] (SBHLAB)[address] IMMATURE GRANS % 1.8 % Normal 0.0-2.0 [facility] Comment on above: Performed By: #### L [id number] ####Communication Analyst: JOHAN BHANDARI ([id number])[facility]ITALA [place] (SBHLAB)[address] IMMATURE GRANS ABSOLUTE 0.2 10*3/uL High <0.1 [facility] Comment on above: Performed By: #### L [id number] ####Communication Analyst: JOHAN BHANDARI ([id number])[facility]OS[facility]ITALA [facility] (SBHLAB)[address] Lymphocytes (Bld) [#/Vol] 1.0 10*3/uL Normal 1.0-4.3 [facility] Comment on above: Performed By: #### L [id number] ####Communication Analyst: JOHAN BHANDARI ([id number])[facility] (SBHLAB)[address] Lymphocytes/100 WBC (Bld) 10.9 % Low 15.0-45.0 [facility] Comment on above: Performed By: #### L [id number] ####Communication Analyst: JOHAN BHANDARI ([id number])[facility]ITALA [place] (SBHLAB)[address] MCH (RBC) [Entitic mass] 29.0 pg Normal 26.0-34.0 [facility] Comment on above: Performed By: #### L [id number] ####Communication Analyst: JOHAN BHANDARI ([id number])[facility] (SBHLAB)[address] MCHC 32.8 % Normal 30.5-36.0 [facility] Comment on above: Performed By: #### L [id number] ####Communication Analyst: JOHAN BHANDARI ([id number])[facility]ITALA [facility] (SBHLAB)[address] MCV (RBC) [Entitic vol] 88.3 fL Normal 77.0-99.0 [facility] Comment on above: Performed By: #### L [id number] ####Communication Analyst: JOHAN BHANDARI ([id number])[facility] (SBHLAB)[address] Monocytes (Bld) [#/Vol] 1.0 10*3/uL High 0.0-0.9 [facility] Comment on above: Performed By: #### L [id number] ####Communication Analyst: JOHAN BHANDARI ([id number])[facility]ITALA [place] (SBHLAB)[address] Monocytes/100 WBC (Bld) 11.1 % Normal 5.0-13.0 [facility] Comment on above: Performed By: #### L [id number] ####Communication Analyst: JOHAN BHANDARI ([id number])[facility]ITALA [place] (SBHLAB)[address] NEUTROPHILS ABSOLUTE 7.0 10*3/uL Normal 1.8-7.5 [facility] Comment on above: Performed By: #### L [id number] ####Communication Analyst: JOHAN BHANDARI ([id number])[facility]A [place] (SBHLAB)[address] Neutrophils/100 WBC (Bld) 76.0 % Normal 38.0-82.0 [facility] Comment on above: Performed By: #### L [id number] ####Communication Analyst: JOHAN BHANDARI ([id number])[facility]ITALA [place] (SBHLAB)[address] [place] [address] [place] NRBC 0.0 /100 WBCs Normal 0.0-2.0 [facility] Comment on above: Performed By: #### L [id number] ####Communication Analyst: JOHAN BHANDARI ([id number])[facility]ITALA [place] (SBHLAB)[address] [place] [address] [place] Platelet mean volume (Bld) [Entitic vol] 9.5 fL Normal 9.0-12.7 [facility] Comment on above: Performed By: #### L [id number] ####Communication Analyst: JOHAN BHANDARI ([id number])[facility] [place] (SBHLAB)[address] Platelets (Bld) [#/Vol] 146 10*3/uL Normal 140-440 [facility] Comment on above: Performed By: #### L [id number] ####Communication Analyst: JOHAN BHANDARI ([id number])[facility]A [place] (SBHLAB)[address] RBC (Bld) [#/Vol] 4.87 10*6/uL Normal 3.80-5.20 [facility] Comment on above: Performed By: #### L [id number] ####Communication Analyst: JOHAN BHANDARI ([id number])[facility]A [place] (SBHLAB)[address] WBC (Bld) [#/Vol] 9.3 10*3/uL Normal 3.6-10.7 [facility] Comment on above: Performed By: #### L [id number] ####Communication Analyst: JOHAN BHANDARI ([id number])[facility]A [place] (SBHLAB)[address] COMPREHENSIVE METABOLIC PANE Alex 08-09-2024 Albumin [Mass/Vol] 2.9 g/dL Low 3.4-4.8 [facility] Comment on above: Performed By: #### L [id number] ####Communication Analyst: JOHAN BHANDARI ([id number])[facility]A [place] (SBHLAB)[address] ALP [Catalytic activity/Vol] 78 U/L Normal 40-150 [facility] Comment on above: Performed By: #### L [id number] ####Communication Analyst: JOHAN BHANDARI ([id number])[facility]A [place] (SBHLAB)[address] ALT [Catalytic activity/Vol] 6 U/L Normal <30 [facility] Comment on above: Performed By: #### L [id number] ####Communication Analyst: JOHAN BHANDARI ([id number])[facility]A [place] (SBHLAB)[address] Anion gap [Moles/Vol] 10 mmol/L Normal 3-13 [facility] Comment on above: Performed By: #### L [id number] ####Communication Analyst: JOHAN BHANDARI ([id number])[facility] [place] (HLAB)[address] AST [Catalytic activity/Vol] 11 U/L Normal <34 [facility] Comment on above: Performed By: #### L [id number] ####Communication Analyst: JOHAN BHANDARI ([id number])[facility] [place] (HLAB)[address] Bilirubin [Mass/Vol] 0.3 mg/dL Normal <1.2 [facility] Comment on above: Performed By: #### L [id number] ####Communication Analyst: JOHAN BHANDARI ([id number])[facility]A [facility])[address] Calcium [Mass/Vol] 9.9 mg/dL Normal 8.8-10.0 [facility] Comment on above: Performed By: #### L [id number] ####Communication Analyst: JOHAN BHANDARI ([id number])[facility] [place] (HLAB)[address] [place] [address] [place] Chloride [Moles/Vol] 99 mmol/L Normal 98-107 [facility] Comment on above: Performed By: #### L [id number] ####Communication Analyst: JOHAN BHANDARI ([id number])[facility] [place] (SBHLAB)[address] [place] [address] [place] CO2 [Moles/Vol] 29 mmol/L Normal 23-31 [facility] Comment on above: Performed By: #### L [id number] ####Communication Analyst: JOHAN BHANDARI ([id number])[facility]A [facility] (SBHLAB)[address] Creatinine [Mass/Vol] 0.83 mg/dL Normal 0.57-1.11 [facility] Comment on above: Performed By: #### L [id number] ####Communication Analyst: JOHAN BHANDARI ([id number])[facility] (SBHLAB)[address] GLOMERULAR FILTRATION RATE ML/MIN/1.73 SQ M.PREDICTED 69.2 mL/min/1.73m*2 Normal >60.0 [facility] Comment on above: Result Comment: Calc ulation based on the Chronic Kidney Disease Epidemiology Collaboration (CKD-EPI) equation refit without adjustment for race Performed By: #### L [id number] ####Communication Analyst: JOHAN BHANDARI ([id number])[facility] (SBHLAB)[address] Glucose [Mass/Vol] 118 mg/dL High 82-115 [facility] Comment on above: Performed By: #### L [id number] ####Communication Analyst: JOHAN BHANDARI ([id number])[facility] (HLAB)[address] [place] [address] Potassium [Moles/Vol] 4.5 mmol/L Normal 3.5-5.1 [facility] Comment on above: Result Comment: [facility] potassium values may be up to 0.5 mmol/L lower than serum values. Performed By: #### L [id number] ####Communication Analyst: JOHAN BHANDARI ([id number])[facility]A [facility] (SBHLAB)[address] [place] [address] [place] Protein [Mass/Vol] 7.3 g/dL Normal 6.4-8.3 [facility] Comment on above: Performed By: #### L [id number] ####Communication Analyst: JOHAN BHANDARI ([id number])[facility]A [facility] (SBHLAB)[address] Sodium [Moles/Vol] 138 mmol/L Normal 136-145 [facility] Comment on above: Performed By: #### L [id number] ####Communication Analyst: JOHAN WATTSCANDY ([id number])[facility] (SBHLAB)[address] Urea nitrogen [Mass/Vol] 24 mg/dL High 9-23 [facility] Comment on above: Performed By: #### L [id number] ####Communication Analyst: JOHAN ALEGRIAJOHNNY ([id number])[facility] (SBHLAB)[address] Comprehensive metabolic 1998 panelon 08-09-2024 Albumin [Mass/Vol] 2.9 g/dL Low 3.4 - 4.8 g/dL [facility] ALP [Catalytic activity/Vol] 78 U/L 40 - 150 U/L [facility] ALT [Catalytic activity/Vol] 6 U/L NINF - 30 U/L [facility] Anion gap [Moles/Vol] 10 mmol/L 3 - 13 mmol/L [facility] AST [Catalytic activity/Vol] 11 U/L NINF - 34 U/L [facility] Bilirubin [Mass/Vol] 0.3 mg/dL NINF - 1.2 mg/dL [facility] Calcium [Mass/Vol] 9.9 mg/dL 8.8 - 10. 0 mg/dL [facility] Chloride [Moles/Vol] 99 mmol/L 98 - 10 7 mmol/L [facility] CO2 [Moles/Vol] 29 mmol/L 23 - 31 mmol/L [facility] Creatinine [Mass/Vol] 0.83 mg/dL 0.57 - 1.11 mg/dL [facility] GFR/1.73 sq M.predicted (S/P/Bld) [Vol rate/Area] 69.2 mL/min - PINF [facility] Comment on above: Calculation based on the Chronic Kidney Disease Epidemiology Collaboration (CKD-EPI) equation refit without adjustment for race Glucose [Mass/Vol] 118 mg/dL High 82 - 115 mg/dL [facility] Interpretation and review of laboratory results Abnormal [facility] Potassium [Moles/Vol] 4.5 mmol/L 3.5 - 5.1 mmol/L [facility] Comment on above: Plasma potassium gustavo ues may be up to 0.5 mmol/L lower than serum values. Protein [Mass/Vol] 7.3 g/dL 6.4 - 8.3 g/dL [facility] Sodium [Moles/Vol] 138 mmol/L 136 - 145 mmol/L [facility] Urea nitrogen [Mass/Vol] 24 mg/dL High 9 - 23 mg/dL [facility] Progress Noteon 08-09-2024 Progress Note [facility] Pulmonary Medicine [address] [place] [address] Patient - Krish Peralta, Age - 83 y.o. - 1940 Room Number - B2-255/B2-255 A Consulting - Gee Givens MD Primary Care Physician - No primary care provider on file. Date of Admission - 08/03/2024 4:21 PM Hospital Day - 6 Chief Complaint: shortness of breath Krish Peralta is a 83 y.o. female who [...] last 7 days Lab Units 08/09/24 03108/08/24 0313 08/07/24 0125 SODIUM mmol/L 138 139 138 POTASSIUM [...] last 7 days Lab Units 08/09/24 03108/08/24 0313 08/07/24 0125 ALK PHOS U/L 78 78 78 BILIRUBIN TOTAL mg/dL 0.3 0.3 0.4 PROTEIN TOTAL g/dL 7.3 7.5 7.2 ALT U/L 6 9 10 AST U/L 11 16 22 INR PTT No results found for: "PTT" Cultures Pneumonia PCR (08/04/24): Haemophilus influenzae, rhinovirus [...] on dry side Darrick Marcum Pulmonary Medicine [facility] [1] amLODIPine, 5 mg, Oral, q24h cefTRIAXone, 1,000 mg, IntraVENous, q24h enoxaparin, 30 mg, SubCUTAneous, 2 times per day escitalo (more content not included)... Normal [facility] Progress Note PHYSICAL THERAPY [facility] Treatment Note Name/MRN: Krish Peralta ([id number]) Date of : 1940 Age: 83 y.o. Room/Bed: B2-255/B2-255 A Visit #: 3 out of 5 Discharge Recommendation: Half-Way Facility Equipment Needed: No Assessment Pt continues to demonstrate decreased functional mobility and demos limited participation in session. Pt completed x1 sit to stand transfer with Mitesh. Pt tolerated some seated exercises however reports [...] From recliner. Pt demos proper hand placement. Mitesh required for overall stability when ascending/descending. Pt [...] Pt also demos coughing fits and states "I'm miserable". Plan Continue acute PT per plan of [...] Minutes (x1 ther ex) Clary Wilson PTA [facility] 30on 08-08-2024 30 Problem: Knowledge Deficit Goal: Patient/family/caregi krysta demonstrates understanding of disease process, treatment plan, medications, and discharge instructions Outcome: Progressing Problem: Potential for Compromised Skin Integrity Goal: Skin Integrity is Maintained or Improved Outcome: Progressing Problem: Urinary Incontinence Goal: Perineal skin integrity is maintained or improved Outcome: Progressing Problem: Problem Interventions Goal: Promote nutritional intake Outcome: Progressing [facility] 30 Problem: Knowledge Deficit Goal: Patient/family/caregi krysta demonstrates understanding of disease process, treatment plan, medications, and discharge instructions 08/08/2024624 by Sophy Olmos RN Outcome: Progressing 08/08/2024552 by Sophy Olmos RN Outcome: Progressing Problem: Potential for Compromised Skin Integrity Goal: Skin Integrity is Maintained or Improved 08/08/2024624 by Sophy Olmos RN Outcome: Progressing 08/08/2024552 by Sophy Olmos RN Outcome: Progressing Goal: Nutritional status is improving 08/08/2024624 by Sophy Olmos RN Outcome: Progressing 08/08/202453 by Sophy Olmos RN Outcome: Progressing Problem: Urinary Incontinence Goal: Perineal skin integrity is maintained or improved 08/08/2024624 by Sophy Olmos RN Outcome: Progressing 08/08/2024552 by Sophy Olmos RN Outcome: Progressing Problem: Problem Interventions Goal: Promote nutritional intake 08/08/2024 0625 by Sophy Olmos RN Outcome: Progressing 08/08/2024 0553 by Sophy Olmos RN Outcome: Progressing Normal [facility] 30 Problem: Knowledge Deficit Goal: Patient/family/caregi [...] Goal: Promote nutritional intake Outcome: Progressing Normal [facility] CBC W Auto Differential pane l (Bld)on 08-08-2024 Basophils (Bld) [#/Vol] 0 10*3/uL 0.0 - 0.2 10*3/uL [facility] Basophils/100 WBC (Bld) 0.3 % 0.0 - 2.0 % [facility] Eosinophils (Bld) [#/Vol] 0 10*3/uL 0.0 - 0.5 10*3/uL [facility] Eosinophils/100 WBC (Bld) 0 % 0.0 - 6.0 % [facility] Erythrocyte distribution width (RBC) [Ratio] 13.7 % 11.5 - 15.0 % [facility] Hematocrit (Bld) [Volume fraction] 41.9 % 35.0 - 47.0 % [facility] Hemoglobin (Bld) [Mass/Vol] 13.6 g/dL 11.7 - 16.0 g/dL [facility] Immature granulocytes (Bld) [#/Vol] 0.2 10*3/uL High NINF - 0.1 10*3/uL [facility] Immature granulocytes/100 WBC (Bld) 2.1 % High 0.0 - 2.0 % [facility] Interpretation and review of laboratory results Abnormal [facility] IPF 1 [facility] Lymphocytes (Bld) [#/Vol] 0.8 10*3/uL Low 1.0 - 4.3 10*3/uL [facility] Lymphocytes/100 WBC (Bld) 11.5 % Low 15.0 - 45.0 % [facility] MCH (RBC) [Entitic mass] 28.8 pg 26. 0 - 34.0 pg [facility] MCHC (RBC) [Mass/Vol] 32.5 % 30.5 - 36.0 % [facility] MCV (RBC) [Entitic vol] 88.6 fL 77.0 - 99.0 fL [facility] Monocytes (Bld) [#/Vol] 0.6 10*3/uL 0.0 - 0.9 10*3/uL [facility] Monocytes/100 WBC (Bld) 8 % 5.0 - 13.0 % [facility] Neutrophils (Bld) [#/Vol] 5.7 10*3/uL 1.8 - 7.5 10*3/uL [facility] Neutrophils/100 WBC (Bld) 78.1 % 38.0 - 82.0 % [facility] Nucleated RBC/100 WBC (Bld) [Ratio] 0 % [facility] Platelet mean volume (Bld) [Entitic vol] 9.6 fL 9.0 - 12.7 fL [facility] Platelets (Bld) [#/Vol] 124 10*3/uL Low 140 - 440 10*3/uL [facility] RBC (Bld) [#/Vol] 4.73 10*6/uL 3.80 - 5.2 0 10*6/uL [facility] WBC (Bld) [#/Vol] 7.3 10*3/uL 3.6 - 10.7 10*3/uL [facility] CBC WITH AUTO DIFFERENTIALon 08-08-2024 Basophils (Bld) [#/Vol] 0.0 10*3/uL Normal 0.0-0.2 [facility] Comment on above: Performed By: #### L [id number] ####Communication Analyst: JOHAN BHANDARI ([id number])[facility] (SBHLAB)[address] [place] [address] Basophils/100 WBC (Bld) 0.3 % Normal 0.0-2.0 [facility] Comment on above: Performed By: #### L [id number] ####Communication Analyst: JOHAN BHANDARI ([id number])[facility] (SBHLAB)[address] [place] [address] [place] Eosinophils (Bld) [#/Vol] 0.0 10*3/uL Normal 0.0-0.5 [facility] Comment on above: Performed By: #### L [id number] ####Communication Analyst: JOHAN BHANDARI ([id number])[facility] (SBAB)[address] Eosinophils/100 WBC (Bld) 0.0 % Normal 0.0-6.0 [facility] Comment on above: Performed By: #### L [id number] ####Communication Analyst: JOHAN BHANDARI ([id number])[facility] ([facility])[address] Erythrocyte distribution width (RBC) [Ratio] 13.7 % Normal 11.5-15.0 [facility] Comment on above: Performed By: #### L [id number] ####Communication Analyst: JOHAN BHANDARI ([phone])[facility] ([facility])[address] Hematocrit (Bld) [Volume fraction] 41.9 % Normal 35.0-47.0 [facility] Comment on above: Performed By: #### L [id number] ####Communication Analyst: JOHAN BHANDARI ([phone])[facility] ([facility])[address] [place] [address] Hemoglobin (Bld) [Mass/Vol] 13.6 g/dL Normal 11.7-16.0 [facility] Comment on above: Performed By: #### L [id number] ####Communication Analyst: JOHAN BHANDARI ([id number])[facility] (SBAB)[address] IMMATURE GRANS % 2.1 % High 0.0-2.0 [facility] Comment on above: Performed By: #### L [id number] ####Communication Analyst: JOHAN BHANDARI ([phone])[facility] ([facility])[address] IMMATURE GRANS ABSOLUTE 0.2 10*3/uL High <0.1 [facility] Comment on above: Performed By: #### L [id number] ####Communication Analyst: JOHAN BHANDARI ([id number])[facility] (SBHLAB)[address] IPF 1 Normal [facility] Comment on above: Performed By: #### L [id number] ####Communication Analyst: JOHAN BHANDARI ([phone])[facility] (SBHLAB)[address] Lymphocytes (Bld) [#/Vol] 0.8 10*3/uL Low 1.0-4.3 [facility] Comment on above: Performed By: #### L [id number] ####Communication Analyst: JOHAN BHANDARI ([phone])[facility] ([facility])[address] [place] [address] Lymphocytes/100 WBC (Bld) 11.5 % Low 15.0-45.0 [facility] Comment on above: Performed By: #### L [id number] ####Communication Analyst: JOHAN BHANDARI ([id number])[facility] ([facility])[address] [place] [address] MCH (RBC) [Entitic mass] 28.8 pg Normal 26.0-34.0 [facility] Comment on above: Performed By: #### L [id number] ####Communication Analyst: JOHAN BHANDARI ([id number])[facility] ([facility])[address] [place] [address] MCHC 32.5 % Normal 30.5-36.0 [facility] Comment on above: Performed By: #### L [id number] ####Communication Analyst: JOHAN BHANDARI ([id number])[facility] ([facility])[address] [place] [address] MCV (RBC) [Entitic vol] 88.6 fL Normal 77.0-99.0 [facility] Comment on above: Performed By: #### L [id number] ####Communication Analyst: JOHAN BHANDARI ([id number])[facility] [place] ([facility])155 88 [address] Monocytes (Bld) [#/Vol] 0.6 10*3/uL Normal 0.0-0.9 [facility] Comment on above: Performed By: #### L [id number] ####Communication Analyst: JOHAN BHANDARI ([phone])[facility] [place] (SBHLAB)[address] Monocytes/100 WBC (Bld) 8.0 % Normal 5.0-13.0 [facility] Comment on above: Performed By: #### L [id number] ####Communication Analyst: JOHAN BHANDARI ([phone])[facility] [place] (SBHLAB)[address] NEUTROPHILS ABSOLUTE 5.7 10*3/uL Normal 1.8-7.5 [facility] Comment on above: Performed By: #### L [id number] ####Communication Analyst: JOHAN BHANDARI ([id number])[facility] [place] (SBHLAB)[address] Neutrophils/100 WBC (Bld) 78.1 % Normal 38.0-82.0 [facility] Comment on above: Performed By: #### L [id number] ####Communication Analyst: JOHAN BHANDARI ([id number])[facility] [place] (SBHLAB)[address] NRBC 0.0 /100 WBCs Normal 0.0-2.0 [facility] Comment on above: Performed By: #### L [id number] ####Communication Analyst: JOHAN BHANDARI ([phone])[facility] [place] (SBHLAB)[address] [place] [address] Platelet mean volume (Bld) [Entitic vol] 9.6 fL Normal 9.0-12.7 [facility] Comment on above: Performed By: #### L [id number] ####Communication Analyst: JOHAN BHANDARI ([phone])[facility] [place] (SBHLAB)[address] Platelets (Bld) [#/Vol] 124 10*3/uL Low 140-440 [facility] Comment on above: Performed By: #### L [id number] ####Communication Analyst: JOHAN BHANDARI ([phone])[facility] [place] (SBHLAB)[address] RBC (Bld) [#/Vol] 4.73 10*6/uL Normal 3.80-5.20 [facility] Comment on above: Performed By: #### L [id number] ####Communication Analyst: JOHAN BHANDARI ([id number])[facility] [place] (SBHLAB)[address] WBC (Bld) [#/Vol] 7.3 10*3/uL Normal 3.6-10.7 [facility] Comment on above: Performed By: #### L [id number] ####Communication Analyst: JOHAN BHANDARI ([id number])[facility] [place] (SBHLAB)[address] COMPREHENSIVE METABOLIC PANE Alex 08-08-2024 Albumin [Mass/Vol] 2.9 g/dL Low 3.4-4.8 [facility] Comment on above: Performed By: #### L [id number] ####Communication Analyst: JOHAN BHANDARI ([id number])[facility] [place] (SBHLAB)[address] ALP [Catalytic activity/Vol] 78 U/L Normal 40-150 [facility] Comment on above: Performed By: #### L [id number] ####Communication Analyst: JOHAN BHANDARI ([phone])[facility] [place] (SBHLAB)[address] ALT [Catalytic activity/Vol] 9 U/L Normal <30 [facility] Comment on above: Performed By: #### L [id number] ####Communication Analyst: JOHAN BHANDARI ([phone])[facility] [place] (SBHLAB)[address] Anion gap [Moles/Vol] 10 mmol/L Normal 3-13 [facility] Comment on above: Performed By: #### L [id number] ####Communication Analyst: JOHAN BHANDARI ([id number])[facility] (SBHLAB)[address] AST [Catalytic activity/Vol] 16 U/L Normal <34 [facility] Comment on above: Performed By: #### L [id number] ####Communication Analyst: JOHAN BHANDARI ([id number])[facility]ITALSujata GUTIERREZLOVEL[facility] [place] (SBHLAB)[address] Bilirubin [Mass/Vol] 0.3 mg/dL Normal <1.2 [facility] Comment on above: Performed By: #### L [id number] ####Communication Analyst: JOHAN BHANDARI ([phone])[facility] (SBHLAB)[address] Calcium [Mass/Vol] 9.8 mg/dL Normal 8.8-10.0 [facility] Comment on above: Performed By: #### L [id number] ####Communication Analyst: JOHAN BHANDARI ([id number])[facility] (SBHLAB)155 [place] [address] [place] Chloride [Moles/Vol] 100 mmol/L Normal 98-107 [facility] Comment on above: Performed By: #### L [id number] ####Communication Analyst: JOHAN BHANDARI ([phone])[facility] [place] (SBHLAB)[address] CO2 [Moles/Vol] 29 mmol/L Normal 23-31 [facility] Comment on above: Performed By: #### L [id number] ####Communication Analyst: JOHAN BHANDARI ([id number])[facility] [place] (SBHLAB)[address] Creatinine [Mass/Vol] 0.80 mg/dL Normal 0.57-1.11 [facility] Comment on above: Performed By: #### L [id number] ####Communication Analyst: JOHAN BHANDARI ([phone])[facility] (SBHLAB)155 [place] [address] [place] GLOMERULAR FILTRATION RATE ML/MIN/1.73 SQ M.PREDICTED 72.3 mL/min/1.73m*2 Normal >60.0 [facility] Comment on above: Result Comment: Calc ulation based on the Chronic Kidney Disease Epidemiology Collaboration (CKD-EPI) equation refit without adjustment for race Performed By: #### L [id number] ####Communication Analyst: JOHAN BHANDARI ([id number])[facility] (SBHLAB)[address] Glucose [Mass/Vol] 118 mg/dL High 82-115 [facility] Comment on above: Performed By: #### L [id number] ####Communication Analyst: JOHAN BHANDARI ([id number])[facility] (SBHLAB)[address] Potassium [Moles/Vol] 4.7 mmol/L Normal 3.5-5.1 [facility] Comment on above: Result Comment: [facility] potassium values may be up to 0.5 mmol/L lower than serum values. Performed By: #### L [id number] ####Communication Analyst: JOHAN BHANDARI ([phone])[facility] [place] (SBHLAB)[address] [place] [address] [place] Protein [Mass/Vol] 7.5 g/dL Normal 6.4-8.3 [facility] Comment on above: Performed By: #### L [id number] ####Communication Analyst: JOHAN BHANDARI ([id number])[facility] (SBHLAB)[address] [place] [address] [place] Sodium [Moles/Vol] 139 mmol/L Normal 136-145 [facility] Comment on above: Performed By: #### L [id number] ####Communication Analyst: JOHAN BHANDARI ([phone])[facility] (SBHLAB)[address] Urea nitrogen [Mass/Vol] 21 mg/dL Normal 9-23 [facility] Comment on above: Performed By: #### L [id number] ####Communication Analyst: JOHAN WATTSCANDY ([id number])[facility] (SBHLAB)[address] Comprehensive metabolic 1998 panelon 08-08-2024 Albumin [Mass/Vol] 2.9 g/dL Low 3.4 - 4.8 g/dL [facility] ALP [Catalytic activity/Vol] 78 U/L 40 - 150 U/L [facility] ALT [Catalytic activity/Vol] 9 U/L NINF - 30 U/L [facility] Anion gap [Moles/Vol] 10 mmol/L 3 - 13 mmol/L [facility] AST [Catalytic activity/Vol] 16 U/L NINF - 34 U/L [facility] Bilirubin [Mass/Vol] 0.3 mg/dL NINF - 1.2 mg/dL [facility] Calcium [Mass/Vol] 9.8 mg/dL 8.8 - 10. 0 mg/dL [facility] Chloride [Moles/Vol] 100 mmol/L 98 - 10 7 mmol/L [facility] CO2 [Moles/Vol] 29 mmol/L 23 - 31 mmol/L [facility] Creatinine [Mass/Vol] 0.8 mg/dL 0.57 - 1.11 mg/dL [facility] GFR/1.73 sq M.predicted (S/P/Bld) [Vol rate/Area] 72.3 mL/min - PINF [facility] Comment on above: Calculation based on the Chronic Kidney Disease Epidemiology Collaboration (CKD-EPI) equation refit without adjustment for race Glucose [Mass/Vol] 118 mg/dL High 82 - 115 mg/dL [facility] Interpretation and review of laboratory results Abnormal [facility] Potassium [Moles/Vol] 4.7 mmol/L 3.5 - 5.1 mmol/L [facility] Comment on above: Plasma potassium gustavo ues may be up to 0.5 mmol/L lower than serum values. Protein [Mass/Vol] 7.5 g/dL 6.4 - 8.3 g/dL [facility] Sodium [Moles/Vol] 139 mmol/L 136 - 145 mmol/L [facility] Urea nitrogen [Mass/Vol] 21 mg/dL 9 - 23 mg/dL [facility] 30on 08-07-2024 30 Problem: Knowledge Deficit Goal: Patient/family/caregi krysta demonstrates understanding of disease process, treatment plan, medications, and discharge instructions Outcome: Progressing Problem: Potential for Compromised Skin Integrity Goal: Skin Integrity is Maintained or Improved Outcome: Progressing Problem: Urinary Incontinence Goal: Perineal skin integrity is maintained or improved Outcome: Progressing Problem: Problem Interventions Goal: Promote nutritional intake Outcome: Progressing Normal [facility] 30 Problem: Knowledge Deficit Goal: Patient/family/caregi [...] Goal: Promote nutritional intake Outcome: Progressing Normal [facility] CBC W Auto Differential pane l (Bld)on 08-07-2024 Basophils (Bld) [#/Vol] 0 10*3/uL 0.0 - 0.2 10*3/uL [facility] Basophils/100 WBC (Bld) 0.1 % 0.0 - 2.0 % [facility] Eosinophils (Bld) [#/Vol] 0 10*3/uL 0.0 - 0.5 10*3/uL [facility] Eosinophils/100 WBC (Bld) 0.2 % 0.0 - 6.0 % [facility] Erythrocyte distribution width (RBC) [Ratio] 13.5 % 11.5 - 15.0 % [facility] Hematocrit (Bld) [Volume fraction] 42.1 % 35.0 - 47.0 % [facility] Hemoglobin (Bld) [Mass/Vol] 14.1 g/dL 11.7 - 16.0 g/dL [facility] Immature granulocytes (Bld) [#/Vol] 0.2 10*3/uL High NINF - 0.1 10*3/uL [facility] Immature granulocytes/100 WBC (Bld) 1.5 % 0.0 - 2.0 % [facility] Interpretation and review of laboratory results Abnormal [facility] IPF 1 [facility] Lymphocytes (Bld) [#/Vol] 1.5 10*3/uL 1.0 - 4.3 10*3/uL [facility] Lymphocytes/100 WBC (Bld) 12.3 % Low 15.0 - 45.0 % [facility] MCH (RBC) [Entitic mass] 29 pg 26. 0 - 34.0 pg [facility] MCHC (RBC) [Mass/Vol] 33.5 % 30.5 - 36.0 % [facility] MCV (RBC) [Entitic vol] 86.6 fL 77.0 - 99.0 fL [facility] Monocytes (Bld) [#/Vol] 1.3 10*3/uL High 0.0 - 0.9 10*3/uL [facility] Monocytes/100 WBC (Bld) 10.8 % 5.0 - 13.0 % [facility] Neutrophils (Bld) [#/Vol] 9.1 10*3/uL High 1.8 - 7.5 10*3/uL [facility] Neutrophils/100 WBC (Bld) 75.1 % 38.0 - 82.0 % [facility] Nucleated RBC/100 WBC (Bld) [Ratio] 0 % [facility] Platelet mean volume (Bld) [Entitic vol] 9.6 fL 9.0 - 12.7 fL [facility] Platelets (Bld) [#/Vol] 153 10*3/uL 140 - 440 10*3/uL [facility] RBC (Bld) [#/Vol] 4.86 10*6/uL 3.80 - 5.2 0 10*6/uL [facility] WBC (Bld) [#/Vol] 12.1 10*3/uL High 3.6 - 10.7 10*3/uL [facility] CBC WITH AUTO DIFFERENTIALon 08-07-2024 Basophils (Bld) [#/Vol] 0.0 10*3/uL Normal 0.0-0.2 [facility] Comment on above: Performed By: #### L [id number] ####Communication Analyst: JOHAN BHANDARI ([phone])[facility] [place] (SBHLAB)[address] Basophils/100 WBC (Bld) 0.1 % Normal 0.0-2.0 [facility] Comment on above: Performed By: #### L [id number] ####Communication Analyst: JOHAN BHANDARI ([id number])[facility] [place] (SBHLAB)[address] Eosinophils (Bld) [#/Vol] 0.0 10*3/uL Normal 0.0-0.5 [facility] Comment on above: Performed By: #### L [id number] ####Communication Analyst: JOHAN BHANDARI ([id number])[facility] [place] (SBHLAB)[address] Eosinophils/100 WBC (Bld) 0.2 % Normal 0.0-6.0 [facility] Comment on above: Performed By: #### L [id number] ####Communication Analyst: JOHAN BHANDARI ([id number])[facility] [place] (SBHLAB)[address] Erythrocyte distribution width (RBC) [Ratio] 13.5 % Normal 11.5-15.0 [facility] Comment on above: Performed By: #### L [id number] ####Communication Analyst: JOHAN BHANDARI ([id number])[facility] [place] (SBHLAB)[address] [place] [address] Hematocrit (Bld) [Volume fraction] 42.1 % Normal 35.0-47.0 [facility] Comment on above: Performed By: #### L [id number] ####Communication Analyst: JOHAN BHANDARI ([id number])[facility] [place] (SBHLAB)[address] Hemoglobin (Bld) [Mass/Vol] 14.1 g/dL Normal 11.7-16.0 [facility] Comment on above: Performed By: #### L [id number] ####Communication Analyst: JOHAN BHANDARI ([id number])[facility] [place] (SBHLAB)[address] IMMATURE GRANS % 1.5 % Normal 0.0-2.0 [facility] Comment on above: Performed By: #### L [id number] ####Communication Analyst: JOHAN BHANDARI ([id number])[facility] [place] (SB[facility])[address] IMMATURE GRANS ABSOLUTE 0.2 10*3/uL High <0.1 [facility] Comment on above: Performed By: #### L [id number] ####Communication Analyst: JOHAN BHANDARI ([id number])[facility] [place] (SBHLAB)[address] IPF 1 Normal [facility] Comment on above: Performed By: #### L [id number] ####Communication Analyst: JOHAN BHANDARI ([id number])[facility] [place] (SBHLAB)[address] Lymphocytes (Bld) [#/Vol] 1.5 10*3/uL Normal 1.0-4.3 [facility] Comment on above: Performed By: #### L [id number] ####Communication Analyst: JOHAN BHANDARI ([id number])[facility] [place] (SBHLAB)[address] Lymphocytes/100 WBC (Bld) 12.3 % Low 15.0-45.0 [facility] Comment on above: Performed By: #### L [id number] ####Communication Analyst: JOHAN BHANDARI ([id number])[facility] [place] (SBHL[facility])[address] MCH (RBC) [Entitic mass] 29.0 pg Normal 26.0-34.0 [facility] Comment on above: Performed By: #### L [id number] ####Communication Analyst: JOHAN BHANDARI ([id number])[facility] [place] (SB[facility])[address] MCHC 33.5 % Normal 30.5-36.0 [facility] Comment on above: Performed By: #### L [id number] ####Communication Analyst: JOHANNICKY BHANDARI ([id number])[facility] [place] (SBHLAB)[address] MCV (RBC) [Entitic vol] 86.6 fL Normal 77.0-99.0 [facility] Comment on above: Performed By: #### L [id number] ####Communication Analyst: JOHAN THONY ([id number])[facility] [place] (SBHLAB)[address] Monocytes (Bld) [#/Vol] 1.3 10*3/uL High 0.0-0.9 [facility] Comment on above: Performed By: #### L [id number] ####Communication Analyst: JOHAN THONY ([id number])[facility] [place] (SBHLAB)[address] Monocytes/100 WBC (Bld) 10.8 % Normal 5.0-13.0 [facility] Comment on above: Performed By: #### L [id number] ####Communication Analyst: JOHAN ALEGRIAJOHNNY ([id number])[facility] [place] (SBHLAB)[address] NEUTROPHILS ABSOLUTE 9.1 10*3/uL High 1.8-7.5 [facility] Comment on above: Performed By: #### L [id number] ####Communication Analyst: JOHAN ALEGRIAJOHNNY ([id number])[facility] [place] (SBHLAB)[address] Neutrophils/100 WBC (Bld) 75.1 % Normal 38.0-82.0 [facility] Comment on above: Performed By: #### L [id number] ####Communication Analyst: JOHAN THONY ([id number])[facility] [place] (SBHL[facility])[address] NRBC 0.0 /100 WBCs Normal 0.0-2.0 [facility] Comment on above: Performed By: #### L [id number] ####Communication Analyst: JOHAN BHANDARI ([id number])[facility] [place] (SBHL[facility])[address] Platelet mean volume (Bld) [Entitic vol] 9.6 fL Normal 9.0-12.7 [facility] Comment on above: Performed By: #### L [id number] ####Communication Analyst: JOHAN BHANDARI ([phone])[facility] [place] (SB[facility])[address] Platelets (Bld) [#/Vol] 153 10*3/uL Normal 140-440 [facility] Comment on above: Performed By: #### L [id number] ####Communication Analyst: JOHAN BHANDARI ([id number])[facility] [place] (SB[facility])[address] RBC (Bld) [#/Vol] 4.86 10*6/uL Normal 3.80-5.20 [facility] Comment on above: Performed By: #### L [id number] ####Communication Analyst: JOHAN BHANDARI ([id number])[facility] [place] (SB[facility])[address] WBC (Bld) [#/Vol] 12.1 10*3/uL High 3.6-10.7 [facility] Comment on above: Performed By: #### L [id number] ####Communication Analyst: JOHAN BHANDARI ([id number])[facility] [place] (SB[facility])[address] COMPREHENSIVE METABOLIC PANE Alex 08-07-2024 Albumin [Mass/Vol] 2.8 g/dL Low 3.4-4.8 [facility] Comment on above: Performed By: #### L [id number] ####Communication Analyst: JOHAN BHANDARI ([phone])[facility] [place] (SB[facility])[address] ALP [Catalytic activity/Vol] 78 U/L Normal 40-150 [facility] Comment on above: Performed By: #### L [id number] ####Communication Analyst: JOHAN BHANDARI ([id number])[facility] [place] (SB[facility])[address] ALT [Catalytic activity/Vol] 10 U/L Normal <30 [facility] Comment on above: Performed By: #### L [id number] ####Communication Analyst: JOHAN BHANDARI ([id number])[facility] [place] (SB[facility])[address] Anion gap [Moles/Vol] 11 mmol/L Normal 3-13 [facility] Comment on above: Performed By: #### L [id number] ####Communication Analyst: JOHAN BHANDARI ([id number])[facility] (SB[facility])[address] AST [Catalytic activity/Vol] 22 U/L Normal <34 [facility] Comment on above: Performed By: #### L [id number] ####Communication Analyst: JOHAN BHNADARI ([id number])[facility] [place] (SB[facility])[address] Bilirubin [Mass/Vol] 0.4 mg/dL Normal <1.2 [facility] Comment on above: Performed By: #### L [id number] ####Communication Analyst: JOHAN BHANDARI ([id number])[facility] [place] (SB[facility])[address] Calcium [Mass/Vol] 9.8 mg/dL Normal 8.8-10.0 [facility] Comment on above: Performed By: #### L [id number] ####Communication Analyst: JOHAN BHANDARI ([id number])[facility] [place] (SB[facility])[address] Chloride [Moles/Vol] 101 mmol/L Normal 98-107 [facility] Comment on above: Performed By: #### L [id number] ####Communication Analyst: JOHAN WATTSCANDY ([id number])[facility] [place] (SB[facility])[address] CO2 [Moles/Vol] 26 mmol/L Normal 23-31 [facility] Comment on above: Performed By: #### L [id number] ####Communication Analyst: JOHAN WATTSCANDY ([id number])[facility] (SB[facility])[address] Creatinine [Mass/Vol] 0.79 mg/dL Normal 0.57-1.11 [facility] Comment on above: Performed By: #### L [id number] ####Communication Analyst: JOHAN WATTSCANDY ([phone])[facility] (SBHLAB)[address] [place] [address] [place] GLOMERULAR FILTRATION RATE ML/MIN/1.73 SQ M.PREDICTED 73.4 mL/min/1.73m*2 Normal >60.0 [facility] Comment on above: Result Comment: Calc ulation based on the Chronic Kidney Disease Epidemiology Collaboration (CKD-EPI) equation refit without adjustment for race Performed By: #### L [id number] ####Communication Analyst: JOHAN BHANDARI ([id number])[facility] (SBHL[facility])[address] [place] [address] Glucose [Mass/Vol] 74 mg/dL Low 82-115 [facility] Comment on above: Performed By: #### L [id number] ####Communication Analyst: JOHAN WATTSCANDY ([phone])[facility] (SBHLAB)[address] [place] [address] [place] Potassium [Moles/Vol] 4.4 mmol/L Normal 3.5-5.1 [facility] Comment on above: Result Comment: [facility] potassium values may be up to 0.5 mmol/L lower than serum values. Performed By: #### L [id number] ####Communication Analyst: JOHAN BHANDARI ([id number])[facility] [place] (SBHLAB)[address] Protein [Mass/Vol] 7.2 g/dL Normal 6.4-8.3 [facility] Comment on above: Performed By: #### L [id number] ####Communication Analyst: JOHAN ALEGRIAAllanCANDY ([id number])[facility]ITAL[facility] ([facility])[address] Sodium [Moles/Vol] 138 mmol/L Normal 136-145 [facility] Comment on above: Performed By: #### L [id number] ####Communication Analyst: JOHAN ALEGRIAJOHNNY ([id number])[facility] [place] (SB[facility])[address] Urea nitrogen [Mass/Vol] 28 mg/dL High 9-23 [facility] Comment on above: Performed By: #### L [id number] ####Communication Analyst: JOHAN THONY ([phone])[facility]ITAL[facility] [place] (SBHLAB)[address] Comprehensive metabolic 1998 panelon 08-07-2024 Albumin [Mass/Vol] 2.8 g/dL Low 3.4 - 4.8 g/dL [facility] ALP [Catalytic activity/Vol] 78 U/L 40 - 150 U/L [facility] ALT [Catalytic activity/Vol] 10 U/L NINF - 30 U/L [facility] Anion gap [Moles/Vol] 11 mmol/L 3 - 13 mmol/L [facility] AST [Catalytic activity/Vol] 22 U/L NINF - 34 U/L [facility] Bilirubin [Mass/Vol] 0.4 mg/dL NINF - 1.2 mg/dL [facility] Calcium [Mass/Vol] 9.8 mg/dL 8.8 - 10. 0 mg/dL [facility] Chloride [Moles/Vol] 101 mmol/L 98 - 10 7 mmol/L [facility] CO2 [Moles/Vol] 26 mmol/L 23 - 31 mmol/L [facility] Creatinine [Mass/Vol] 0.79 mg/dL 0.57 - 1.11 mg/dL [facility] GFR/1.73 sq M.predicted (S/P/Bld) [Vol rate/Area] 73.4 mL/min - PINF [facility] Comment on above: Calculation based on the Chronic Kidney Disease Epidemiology Collaboration (CKD-EPI) equation refit without adjustment for race Glucose [Mass/Vol] 74 mg/dL Low 82 - 115 mg/dL [facility] Interpretation and review of laboratory results Abnormal [facility] Potassium [Moles/Vol] 4.4 mmol/L 3.5 - 5.1 mmol/L [facility] Comment on above: Plasma potassium gustavo ues may be up to 0.5 mmol/L lower than serum values. Protein [Mass/Vol] 7.2 g/dL 6.4 - 8.3 g/dL [facility] Sodium [Moles/Vol] 138 mmol/L 136 - 145 mmol/L [facility] Urea nitrogen [Mass/Vol] 28 mg/dL High 9 - 23 mg/dL [facility] Progress Noteon 08-07-2024 Progress Note PHYSICAL THERAPY [facility] Treatment Note Name/MRN: Krish Peralta ([id number]) Date of : 1940 Age: 83 y.o. Room/Bed: [facility] A Visit #: 2 out of 5 Discharge Recommendation: Half-Way Facility Equipment Needed: No Assessment Pt seated [...] 08/11/24 Therapy Time Individual Co-treatment Time In 956 Time Out 1010 Minutes 13 Timed Code Treatment Minutes: 13 Minutes (x1 ther ex) Clary Wilson PTA Normal [facility] Bacteria identified Aer cx N om (Lower resp)Ordered By: Marianna Chapman on 08-06-2024 [facility] th Gram Stain Result Few Epithelial cells per low power field Abnormal [facility] Gram Stain Result Moderate Polymorphonuclear leukocytes per low power field Abnormal [facility] Gram Stain Result Positive Abnormal [facility] Gram Stain Result Negative Abnormal [facility] Interpretation and review of laboratory results Abnormal [facility] CBC W Auto Differential pane l (Bld)on 08-06-2024 Basophils (Bld) [#/Vol] 0 10*3/uL 0.0 - 0.2 10*3/uL [facility] Basophils/100 WBC (Bld) 0.1 % 0.0 - 2.0 % [facility] Eosinophils (Bld) [#/Vol] 0 10*3/uL 0.0 - 0.5 10*3/uL [facility] Eosinophils/100 WBC (Bld) 0 % 0.0 - 6.0 % [facility] Erythrocyte distribution width (RBC) [Ratio] 13.2 % 11.5 - 15.0 % [facility] Hematocrit (Bld) [Volume fraction] 39.6 % 35.0 - 47.0 % [facility] Hemoglobin (Bld) [Mass/Vol] 13 g/dL 11.7 - 16.0 g/dL [facility] Immature granulocytes (Bld) [#/Vol] 0.2 10*3/uL High NINF - 0.1 10*3/uL [facility] Immature granulocytes/100 WBC (Bld) 1.2 % 0.0 - 2.0 % [facility] Interpretation and review of laboratory results Abnormal [facility] Lymphocytes (Bld) [#/Vol] 1.1 10*3/uL 1.0 - 4.3 10*3/uL [facility] Lymphocytes/100 WBC (Bld) 8 % Low 15.0 - 45.0 % [facility] MCH (RBC) [Entitic mass] 29 pg 26. 0 - 34.0 pg [facility] MCHC (RBC) [Mass/Vol] 32.8 % 30.5 - 36.0 % [facility] MCV (RBC) [Entitic vol] 88.2 fL 77.0 - 99.0 fL [facility] Monocytes (Bld) [#/Vol] 0.8 10*3/uL 0.0 - 0.9 10*3/uL [facility] Monocytes/100 WBC (Bld) 5.4 % 5.0 - 13.0 % [facility] Neutrophils (Bld) [#/Vol] 12.1 10*3/uL High 1.8 - 7.5 10*3/uL [facility] Neutrophils/100 WBC (Bld) 85.3 % High 38.0 - 82.0 % [facility] Nucleated RBC/100 WBC (Bld) [Ratio] 0 % [facility] Platelet mean volume (Bld) [Entitic vol] 9 fL 9.0 - 12.7 fL [facility] Platelets (Bld) [#/Vol] 160 10*3/uL 140 - 440 10*3/uL [facility] RBC (Bld) [#/Vol] 4.49 10*6/uL 3.80 - 5.2 0 10*6/uL [facility] WBC (Bld) [#/Vol] 14.1 10*3/uL High 3.6 - 10.7 10*3/uL [facility] CBC WITH AUTO DIFFERENTIALon 08-06-2024 Basophils (Bld) [#/Vol] 0.0 10*3/uL Normal 0.0-0.2 [facility] Comment on above: Performed By: #### L [id number] ####Communication Analyst: JOHAN BHANDARI ([phone])[facility] ([facility])[address] [place] [address] Basophils/100 WBC (Bld) 0.1 % Normal 0.0-2.0 S [facility] Comment on above: Performed By: #### L [id number] ####Communication Analyst: JOHAN BHANDARI ([id number])[facility] ([facility])[address] [place] [address] Eosinophils (Bld) [#/Vol] 0.0 10*3/uL Normal 0.0-0.5 [facility] Comment on above: Performed By: #### L [id number] ####Communication Analyst: JOHAN BHANDARI ([id number])[facility] ([facility])[address] Eosinophils/100 WBC (Bld) 0.0 % Normal 0.0-6.0 [facility] Comment on above: Performed By: #### L [id number] ####Communication Analyst: JOHAN ALEGRIAAllanCANDY ([phone])[facility] ([facility])[address] Erythrocyte distribution width (RBC) [Ratio] 13.2 % Normal 11.5-15.0 [facility] Comment on above: Performed By: #### L [id number] ####Communication Analyst: JOHAN THONY ([id number])[facility] ([facility])[address] Hematocrit (Bld) [Volume fraction] 39.6 % Normal 35.0-47.0 [facility] Comment on above: Performed By: #### L [id number] ####Communication Analyst: JOHAN THONY ([id number])[facility] ([facility])[address] [place] [address] Hemoglobin (Bld) [Mass/Vol] 13.0 g/dL Normal 11.7-16.0 [facility] Comment on above: Performed By: #### L [id number] ####Communication Analyst: JOHAN WATTSCANDY ([phone])[facility] ([facility])[address] IMMATURE GRANS % 1.2 % Normal 0.0-2.0 [facility] Comment on above: Performed By: #### L [id number] ####Communication Analyst: JOHAN WATTSCANDY ([phone])[facility] ([facility])[address] IMMATURE GRANS ABSOLUTE 0.2 10*3/uL High <0.1 [facility] Comment on above: Performed By: #### L [id number] ####Communication Analyst: JOHAN WATTSCANDY ([id number])[facility] ([facility])[address] Lymphocytes (Bld) [#/Vol] 1.1 10*3/uL Normal 1.0-4.3 [facility] Comment on above: Performed By: #### L [id number] ####Communication Analyst: JOHAN ALEGRIAAllanCANDY ([id number])[facility] HOSPITALSujata [place] ([facility])[address] Lymphocytes/100 WBC (Bld) 8.0 % Low 15.0-45.0 [facility] Comment on above: Performed By: #### L [id number] ####Communication Analyst: JOHAN WATTSCANDY ([id number])[facility] ([facility])[address] MCH (RBC) [Entitic mass] 29.0 pg Normal 26.0-34.0 [facility] Comment on above: Performed By: #### L [id number] ####Communication Analyst: JOHAN THONY ([id number])[facility] HOSPITALSujata GUTIERREZLOVELACE REG[facility], ROSWELLIsabela (SBHL[facility])[address] MCHC 32.8 % Normal 30.5-36.0 [facility] Comment on above: Performed By: #### L [id number] ####Communication Analyst: JOHAN ALEGRIAAllanCANDY ([id number])[facility] HOSPITALSujata [facility]ZLOVEL[facility] ([facility])[address] MCV (RBC) [Entitic vol] 88.2 fL Normal 77.0-99.0 [facility] Comment on above: Performed By: #### L [id number] ####Communication Analyst: JOHAN BHANDARI ([phone])[facility] HOSPITALSujata [facility]OVEL[facility], [facility] ([facility])[address] Monocytes (Bld) [#/Vol] 0.8 10*3/uL Normal 0.0-0.9 [facility] Comment on above: Performed By: #### L [id number] ####Communication Analyst: JOHAN BHANDARI ([id number])[facility] HOSPITALSujata [facility] ([facility])[address] Monocytes/100 WBC (Bld) 5.4 % Normal 5.0-13.0 [facility] Comment on above: Performed By: #### L [id number] ####Communication Analyst: JOHAN THONY ([id number])[facility]ITALA [place] ([facility])[address] NEUTROPHILS ABSOLUTE 12.1 10*3/uL High 1.8-7.5 [facility] Comment on above: Performed By: #### L [id number] ####Communication Analyst: JOHAN THONY ([id number])[facility] [place] ([facility])[address] Neutrophils/100 WBC (Bld) 85.3 % High 38.0-82.0 [facility] Comment on above: Performed By: #### L [id number] ####Communication Analyst: JOHAN BHANDARI ([phone])[facility]ITALA [facility] [place] ([facility])[address] NRBC 0.0 /100 WBCs Normal 0.0-2.0 [facility] Comment on above: Performed By: #### L [id number] ####Communication Analyst: JOHAN THONY ([id number])[facility]A [facility] [place] ([facility])[address] Platelet mean volume (Bld) [Entitic vol] 9.0 fL Normal 9.0-12.7 [facility] Comment on above: Performed By: #### L [id number] ####Communication Analyst: JOHAN WATTSCANDY ([id number])[facility] [place] ([facility])[address] Platelets (Bld) [#/Vol] 160 10*3/uL Normal 140-440 [facility] Comment on above: Performed By: #### L [id number] ####Communication Analyst: JOHAN ALEGRIAJOHNNY ([phone])[facility] [place] ([facility])[address] RBC (Bld) [#/Vol] 4.49 10*6/uL Normal 3.80-5.20 [facility] Comment on above: Performed By: #### L [id number] ####Communication Analyst: JOHAN BHANDARI ([id number])[facility] [place] ([facility])[address] WBC (Bld) [#/Vol] 14.1 10*3/uL High 3.6-10.7 [facility] Comment on above: Performed By: #### L [id number] ####Communication Analyst: JOHAN BHANDARI ([id number])[facility] [place] ([facility])[address] COMPREHENSIVE METABOLIC PANE Alex 08-06-2024 Albumin [Mass/Vol] 2.8 g/dL Low 3.4-4.8 [facility] Comment on above: Performed By: #### L [id number] ####Communication Analyst: JOHAN BHANDARI ([phone])[facility]A [place] ([facility])[address] ALP [Catalytic activity/Vol] 83 U/L Normal 40-150 [facility] Comment on above: Performed By: #### L [id number] ####Communication Analyst: JOHAN BHANDARI ([phone])[facility] [place] ([facility])[address] ALT [Catalytic activity/Vol] 6 U/L Normal <30 [facility] Comment on above: Performed By: #### L [id number] ####Communication Analyst: JOHAN BHANDARI ([id number])[facility] [place] ([facility])[address] Anion gap [Moles/Vol] 10 mmol/L Normal 3-13 [facility] Comment on above: Performed By: #### L [id number] ####Communication Analyst: JOHAN BHANDARI ([id number])[facility] [place] ([facility])[address] AST [Catalytic activity/Vol] 16 U/L Normal <34 [facility] Comment on above: Performed By: #### L [id number] ####Communication Analyst: JOHAN BHANDARI ([id number])[facility] [place] ([facility])[address] Bilirubin [Mass/Vol] 0.4 mg/dL Normal <1.2 [facility] Comment on above: Performed By: #### L [id number] ####Communication Analyst: JOHAN BHANDARI ([id number])[facility] [place] ([facility])[address] Calcium [Mass/Vol] 10.3 mg/dL High 8.8-10.0 [facility] Comment on above: Performed By: #### L [id number] ####Communication Analyst: JOHAN BHANDARI ([id number])[facility] [place] ([facility])[address] Chloride [Moles/Vol] 95 mmol/L Low 98-107 [facility] Comment on above: Performed By: #### L [id number] ####Communication Analyst: JOHAN BHANDARI ([phone])[facility] [place] ([facility])[address] CO2 [Moles/Vol] 30 mmol/L Normal 23-31 [facility] Comment on above: Performed By: #### L [id number] ####Communication Analyst: JOHAN BHANDARI ([id number])[facility] [place] ([facility])[address] Creatinine [Mass/Vol] 0.84 mg/dL Normal 0.57-1.11 [facility] Comment on above: Performed By: #### L [id number] ####Communication Analyst: JOHAN BHANDARI ([phone])[facility] [place] ([facility])[address] [place] [address] [place] GLOMERULAR FILTRATION RATE ML/MIN/1.73 SQ M.PREDICTED 68.2 mL/min/1.73m*2 Normal >60.0 [facility] Comment on above: Result Comment: Calc ulation based on the Chronic Kidney Disease Epidemiology Collaboration (CKD-EPI) equation refit without adjustment for race Performed By: #### L [id number] ####Communication Analyst: JOHAN BHANDARI ([phone])[facility]A [facility] ([facility])[address] Glucose [Mass/Vol] 123 mg/dL High 82-115 [facility] Comment on above: Performed By: #### L [id number] ####Communication Analyst: JOHAN ALEGRIAJOHNNY ([id number])[facility] ([facility])[address] Potassium [Moles/Vol] 3.9 mmol/L Normal 3.5-5.1 [facility] Comment on above: Result Comment: [facility] potassium values may be up to 0.5 mmol/L lower than serum values. Performed By: #### L [id number] ####Communication Analyst: JOHAN WATTSCANDY ([phone])[facility] ([facility])[address] Protein [Mass/Vol] 7.7 g/dL Normal 6.4-8.3 [facility] Comment on above: Performed By: #### L [id number] ####Communication Analyst: JOHAN WATTSCANDY ([id number])[facility] ([facility])[address] Sodium [Moles/Vol] 135 mmol/L Low 136-145 [facility] Comment on above: Performed By: #### L [id number] ####Communication Analyst: JOHAN BHANDARI ([id number])[facility] ([facility])[address] Urea nitrogen [Mass/Vol] 27 mg/dL High 9-23 [facility] Comment on above: Performed By: #### L [id number] ####Communication Analyst: JOHAN WATTSCANDY ([id number])[facility] ([facility])[address] Comprehensive metabolic 1998 panelon 08-06-2024 Albumin [Mass/Vol] 2.8 g/dL Low 3.4 - 4.8 g/dL [facility] ALP [Catalytic activity/Vol] 83 U/L 40 - 150 U/L [facility] ALT [Catalytic activity/Vol] 6 U/L NINF - 30 U/L [facility] Anion gap [Moles/Vol] 10 mmol/L 3 - 13 mmol/L [facility] AST [Catalytic activity/Vol] 16 U/L NINF - 34 U/L [facility] Bilirubin [Mass/Vol] 0.4 mg/dL NINF - 1.2 mg/dL [facility] Calcium [Mass/Vol] 10.3 mg/dL High 8.8 - 10. 0 mg/dL [facility] Chloride [Moles/Vol] 95 mmol/L Low 98 - 10 7 mmol/L [facility] CO2 [Moles/Vol] 30 mmol/L 23 - 31 mmol/L [facility] Creatinine [Mass/Vol] 0.84 mg/dL 0.57 - 1.11 mg/dL [facility] GFR/1.73 sq M.predicted (S/P/Bld) [Vol rate/Area] 68.2 mL/min - PINF [facility] Comment on above: Calculation based on the Chronic Kidney Disease Epidemiology Collaboration (CKD-EPI) equation refit without adjustment for race Glucose [Mass/Vol] 123 mg/dL High 82 - 115 mg/dL [facility] Interpretation and review of laboratory results Abnormal [facility] Potassium [Moles/Vol] 3.9 mmol/L 3.5 - 5.1 mmol/L [facility] Comment on above: Plasma potassium gustavo ues may be up to 0.5 mmol/L lower than serum values. Protein [Mass/Vol] 7.7 g/dL 6.4 - 8.3 g/dL [facility] Sodium [Moles/Vol] 135 mmol/L Low 136 - 145 mmol/L [facility] Urea nitrogen [Mass/Vol] 27 mg/dL High 9 - 23 mg/dL [facility] - Microbiology an d Antimicrobial susceptibilityOrdered By: Marianna Chapman on 08-06-2024 Bacteria identified Aer cx Nom (Lower resp) Moderate respiratory suri present. [facility] Bacteria identified Aer cx Nom (Lower resp) Many Haemophilus influenzae Abnormal [facility] Progress Noteon 08-06-2024 Progress Note [facility] Pulmonary Medicine [address] [place] [address] [id number] Patient - rKish Peralta, Age - 83 y.o. - 1940 Room Number - [id number] B Consulting - Gee Givens MD Primary Care Physician - [facility] care provider [facility] file[id number] Date of Admission - 08/03/2024 4:21 PM Hospital Day - 3 Chief Complaint: shortness of breath Krish Peralta is a 83 y.o. female who [...] 17 INR PTT No results found for: "PTT" Cultures Pneumonia PCR (08/04/24): Haemophilus influenzae, rhinovirus [...] goal SpO (more content not included)... Normal [facility] [employer] [facility] US Heart TransthoracicOrdere d By: Reji Lay on 08-06-2024 Ao Root Index 1.86 cm/m2 [facility] Work Phone: Aortic Arch 2.7 cm [facility] [employer] Phone: Aortic Root 3.6 cm [facility] [employer] Work Phone: Aortic Sinus Valsalva 3.6 cm [facility] [employer] Work Phone: Aortic Sinus Valsalva Index 1.86 cm/m2 [facility] [employer] Phone: Aortic valve Mean systole pressure gradient by US.doppler derived full Bernoulli 9 mmHg [facility] Work Phone: Aortic valve Orifice area by US 3.8 cm2 [facility] [employer] Work Phone: Aortic valve Peak systolic flow by US.doppler 1.4 m/s [facility] [employer] Phone: Ascending Aorta 4.5 cm [facility] Work Phone: Ascending Aorta Index 2.32 cm/m2 [facility] [employer] Work Phone: AV Area by Peak Velocity 1.9 cm2 [facility] [employer] Phone: AV Area by VTI 2.3 cm2 [facility] Work Phone: AV AT 91.34 ms [facility] [employer] Work Phone: AV Peak Gradient 15 mmHg [facility] [employer] [facility] Work Phone: AV Peak Velocity 2 m/s [facility] Work Phone: AV Velocity Ratio 0.5 [facility] Work Phone: AV VTI 36.6 cm [facility] Work Phone: WILLIE/BSA Peak Velocity 1 cm2/m2 [facility] Work Phone: WILLIE/BSA VTI 1.2 cm2/m2 [facility] Work Phone: E/E' Lateral 10.43 [facility] Work Phone: E/E' Ratio (Averaged) 12.51 [facility] Work Phone: E/E' Septal 14.6 [facility] Work Phone: Est. RA Pressure 3 mmHg [facility] Work Phone: Fractional Shortening 2D 47 % 28 - 44 % [facility] Work Phone: Interpretation and review of laboratory results Abnormal [facility] Work Phone: IVC Diameter 2.1 cm [facility] Work Phone: IVSd 1.6 cm Abnormal 0.6 - 0.9 cm [facility] Work Phone: LA Diameter 3.1 cm [facility] Work Phone: LA Size Index 1.6 cm/m2 [facility] Work Phone: LA Volume 4C 61 mL Abnormal 22 - 52 mL [facility] Work Phone: LA Volume Index 4C 31 mL/m2 16 - 34 mL/m2 [facility] Work Phone: LA/AO Root Ratio 0.86 [facility] Work Phone: LV E' Lateral Velocity 7 cm/s [facility] Work Phone: LV E' Septal Velocity 5 cm/s [facility] Work Phone: LV Mass 2D 181.4 g Abnormal 67 - 162 g [facility] Work Phone: LV Mass 2D Index 93.5 g/m2 43 - 95 g/m2 [facility] [employer] Work Phone: LV RWT Ratio 0.94 [facility] Work Phone: LVIDd 3.2 cm Abnormal 3.9 - 5.3 cm [facility] [employer] Work Phone: LVIDd Index 1.65 cm/m2 [facility] [employer] Work Phone: LVIDs 1.7 cm [facility] [employer] Work Phone: LVIDs Index 0.88 cm/m2 [facility] [employer] Work Phone: LVOT Cardiac Output 6.5 liter/mi nut e [facility] Work Phone: LVOT Diameter 2.2 cm [employer] [facility] Work Phone: LVOT Mean Gradient 2 mmHg [facility] Work Phone: LVOT Peak Gradient 4 mmHg [facility] Work Phone: LVOT Peak Velocity 1 m/s [facility] Work Phone: LVOT Stroke Volume Index 41.7 mL/m2 [facility] Work Phone: LVOT SV 80.9 ml [facility] [employer] Work Phone: LVOT VTI 21.3 cm [facility] Work Phone: LVOT:AV VTI Index 0.58 [facility] Work Phone: LVPWd 1.5 cm Abnormal 0.6 - 0.9 cm [facility] [employer] Work Phone: MV A Velocity 0.61 m/s [facility] Work Phone: MV E Velocity 0.73 m/s [facility] Work Phone: MV E Wave Deceleration Time 206.8 ms [facility] Work Phone: MV E/A 1.2 [facility] [employer] Work Phone: RV Free Wall Peak S' 15 cm/s [facility] Work Phone: Sinotubular Junction 3 cm [facility] [employer] Work Phone: [facility] [employer] Work Phone: Heart Transthoracicon Left Ventricle: Not well visualized. [...] imaging. Echo Additional Conclusions Technically difficult study. CV CPACS XR CHEST 1 VIEWon 08-06-2024 XR CHEST 1 VIEW Patient Name: KRISH PERALTA : 1940 [facility]#: [id number] Exam Date/Time: 08/06/2024 12:09 Procedure: XR CHEST [...] Electronically Signed Date/Time: 08/06/2024 12:12 PM EDT [facility] XR Chest Single viewon 08-06 Lines, tubes, [...] Electronically Signed Date/Time: 08/06/2024 12:12 PM EDT [facility] [employer] Patient Name: KRISH PERALTA : 1940 Exam Date/Time: 08/06/2024 12:09 Procedure: XR CHEST 1 VIEW Ordering Provider: NERI MANSUR Reason For Exam: follow-up pneumonia EXAMINATION: CHEST RADIOGRAPH (SINGLE VIEW AP OR PA) Clinical History: follow-up pneumonia Comparison: Radiograph 08/03/2024 RESULT: See impression [facility] RADI[facility]Y [facility] Ki Payne MD - 08/06/2024 Patient Name: KRISH PERALTA : 1940 Exam Date/Time: 08/06/2024 12:09 [...] Electronically Signed Date/Time: 08/06/2024 12:12 PM EDT [facility] Radiology Study [facility] (narrative) [facility] Chest Single viewOrdered By: Ki Payne on 08-06-2024 [facility] [employer] Work Phone: 30on 08-05-2024 30 Problem: Knowledge Deficit Goal: Patient/family/caregi krysta demonstrates understanding of disease process, treatment plan, medications, and discharge instructions Outcome: Progressing Problem: Potential for Compromised Skin Integrity Goal: Skin Integrity is Maintained or Improved Outcome: Progressing Goal: Nutritional status is improving Outcome: Progressing Problem: Urinary Incontinence Goal: Perineal skin integrity is maintained or improved Outcome: Progressing Normal [facility] 30 Problem: Knowledge Deficit Goal: Patient/family/caregi [...] and discharge instructions Outcome: Not Progressing Normal [facility] Consulton 08-05-2024 Consult Nutrition Assessment Type and [...] Unable to assess Fluid Accumulation: 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 Present[facility] via EMS from SNF with low [...] replied: sometimes yes, sometimes no... it doesn't matter". Spoke with RN post visit, "picked at oatmeal and a banana". RN also reported that she asked for milk with breakfast... Deferred NFPE. Estimated Daily Nutrient Needs: Energy Requirements Based On: Kcal/kg Weight Used for Energy Requirements: [place] Weight for Energy Calculation (kg): 45 kg Total Energy Requirements (kcals/day): 1767-9478 (25-30 kcal/kg IBW) Weight Used for Protein Requirements: [place] Weight in Kg Used for Protein Requirements: [...] lb) (11/11/23) % Weight Change (Calculated): 11.7 [place] Body Weight (lbs) (Calculated): 100 lbs [place] Body Weight (Kg) (Calculated): 45 kg % [place] Body Weight (Calculated): 220 % BMI (kg/m2) [...] Vomiting Discharge Planning: Continue current diet Zuleyka Saul, KAYN, LDN, Contact: *[phone] [facility] Consult [facility] CONSULT Note Krish Peralta AGE: 83 y.o. GENDER: female : 1940 Subjective: HISTORY of PRESENT ILLNESS HPI Krish Peralta is a 83 y.o. female who presents for a wound consult. HPI: Ms. Peralta is a 83 y.o. female with past medical history significant for COPD. Patient presented to the emergency room from detention [facility] for shortness of breath. Patient admitted with [...] 0.79 08/03/2024 PT/INR: No results found for: "PROTIME", INR Prealbumin: No results found for: PREALBUMIN Albumin:No components found for: "LABALBU" Sed Rate:No results found for: "SEDRATE" Micro: No components found for: "BC" Assessment/Plan: Nursing staff to perform dressing change: Right buttock: Pressure Injury (DTI) - Clean with soap and water, apply ET mix then leave [employer] TID and PRN - Reposition q2hrs - Incontinent checks q2hrs - Waffle cushion while in chair Nutritional support Wound Care to follow Recommend to follow up at [facility] Outpatient wound care center after hospital discharge. Any questions or concerns please secure chat "ACH wound/ostomy". Thank you for the consult! I personally [...] hours. furo (more content not included)... Normal [facility] Nursing Noteon 08-05-2024 Nursing Note Patient informed PO steroids were changed back to IV steroids. Patient continues to refuse steroids due to feeling restless and irritable. [facility] Nursing Note RN at bedside to administer PO Prednisone. Patient adamantly refusing to take steroids because they make her restless and irritable. Patient requesting more hydroxyzine because she already feels restless and irritable. RN informed patient of next available time for hydroxyzine to be administered. Dr. Givens notified and RN requested increase in hydroxyzine per patient request. [facility] Progress Noteon 08-05-2024 Progress Note Found pt. On 12L HFN C saturation 97% at this time. Turned pt. Down to 10L HFNC and saturation was 93% prior to her breathing tx. Sent a secure chat to physician that 10L is 60% FIO2 which per our protcol is the max oxygen for the floors. Normal [facility] Progress Note PHYSICAL THERAPY [facility] Treatment Note Name/MRN: Krish Peralta ([id number]) Date of : 1940 Age: 83 y.o. Room/Bed: [facility] [place] B Visit #: 1 out of 5 Discharge Recommendation: Half-Way Facility Equipment Needed: No Assessment Pt continues [...] will complet (more content not included)... Normal [facility] Progress Note [facility] Pulmonary Medicine [address] [place], [place] [id number] Patient - Krish Peralta, Age - 83 y.o. - 1940 Room Number - B2-243/B2-243 B Consulting - Gee Givens MD Primary Care Physician - No primary care provider on file[id number] Date of Admission - 08/03/2024 4:21 PM Hospital Day - 2 Chief Complaint: shortness of breath Krish Peralta is a 83 y.o. female who [...] 17 INR PTT No results found for: "PTT" Cultures Pneumonia PCR (08/04/24): Haemophilus influenzae, rhinovirus [...] BMI, T (more content not included)... Normal [facility] BLOOD GAS, VENOUSon 08-05-19 25 AMOUNT OF OXYGEN Normal [facility] Comment on above: Result Comment: JERAMIE Murrieta COMMENTS: Assessment of oxygenation is best done with an arterial blood gas determination. Reference ranges for pO2, bicarbonate, and base excess are for mixed venous blood. Specimens drawn from a peripheral vein will often have higher values. Performed By: #### L [id number] #### Communication Analyst: JOHAN BHANDARI ([phone]) [facility] ([facility]) [address] Base excess Calc (BldV) [Moles/Vol] 9.6 mmol/L High -3.0-3.0 [facility] Comment on above: Performed By: #### L [id number] #### Communication Analyst: JOHAN BHANDARI ([phone]) [facility] ([facility]) [address] [place] [address] [place] CO2 [Moles/Vol] 38.6 mmol/L High 23.0-30.0 [facility] Comment on above: Performed By: #### L [id number] #### Communication Analyst: JOHAN BHANDARI ([phone]) [facility] ([facility]) [address] [place] [address] [place] HCO3 (Bld) [Moles/Vol] 36.8 mmol/L High 21.0-30.0 S [facility] Comment on above: Performed By: #### L [id number] #### Communication Analyst: JOHAN BHANDARI ([phone]) [facility] ([facility] [address] Hemoglobin (Bld) [Mass/Vol] 13.7 g/dL Normal Screen only [facility] Comment on above: Performed By: #### L [id number] #### Communication Analyst: JOHAN BHANDARI ([phone]) [facility] ([facility] [address] OXYGEN (MM HG) IN VENOUS BLOOD 54.5 mm Hg Normal [facility] Comment on above: Performed By: #### L [id number] #### Communication Analyst: JOHAN BHANDARI ([phone]) [facility] ([facility]) [address] OXYGEN SATURATION (%) IN VENOUS BLOOD 87.9 % Normal [facility] Comment on above: Performed By: #### L [id number] #### Communication Analyst: JOHAN BHANDARI ([id number]) [facility] ([facility]) [address] PCO2, MIGUEL 61.0 mm Hg High 35.0-53.0 [facility] Comment on above: Performed By: #### L [id number] #### Communication Analyst: JOHAN BHANDARI ([id number]) [facility] ([facility]) [address] PH VENOUS 7.398 Normal 7.320-7.420 [facility] Comment on above: Performed By: #### L [id number] #### Communication Analyst: JOHAN BHANDARI ([phone]) [facility] ([facility]) [address] SOURCE OF OXYGEN High Flow Oxygen Therapy (FiO2) Normal [facility] Comment on above: Performed By: #### L [id number] #### Communication Analyst: JOHAN [id number]) RASHAD MIRANDA ([facility]) [address] [place] [address] Consulton 08-04-2024 Consult [facility] Pulmonary Medicine [address] [place] [address] Patient - Krish Peralta - 1940 Date of Admission - 08/03/2024 4:21 PM Date of Evaluation - 08/04/2024 Room - B2-243/[facility] B Hospital Day - 1 Consulting - Gee Givens MD PCP - No primary care provider on file. Reason for Consult COPD exacerbation History of Present Illness Krish Peralta is a 83 y.o. female admitted for shortness of breath, hypoxemia. Patient has a past medical history of: - possible asthma - trivial smoking history - dementia - hypothyroidism - hypertension Patient is new to the [facility] pulmonary service, patient thinks she may have seen a hand bulldozer several years ago. She was admitted to [facility] 08/03/24 from SNF for increasing shortness [...] min Stress: No Stress Concern Present (08/04/2024) [employer] - Occupational Stress Questionnaire Feeling of Stress : Only a little Social Connections: Unknown (08/04/2024) Social Connection and Isolation Panel [NHANES] Frequency of Communication with Friends and Family: Never Frequency of Social Gatherings with Friends and Family: Never Attends Voodoo Services: Never Active Member of Clubs or [...] hours PRN (more content not included)... Normal [facility] LEGIONELLA AND STREPTOCOCCUS URINE ANTIGENon 08-04-2024 LEGIONELLA AND STREPTOCOCCUS URINE ANTIGEN LEGIONELLA PNEUMOPHILA URINE ANTIGEN Reference Not Detected Not Detected STREPTOCOCCUS PNEUMONIAE URINE ANTIGEN Reference Not Detected Not Detected ORDER COMMENTS: Methodology: Lateral flow enzyme immunoassay This assay is approved for detection of antigens to Streptococcus pneumoniae and Legionella pneumophila serogroup 1; however, other L. pneumophila serogroups may also be detected. Normal [facility] Comment on above: Performed By: #### L [id number] #### Communication Analyst: ELODIA CONTRERAS ([id number]) [address] Laboratory - Chemistry and C hemistry - challengeOrdered By: Sharda Chacon on 08-04-2024 Base excess Calc (BldV) [Moles/Vol] 9.6 mmol/L High -3.0 - 3.0 mmol/L [facility] CO2 (BldV) [Partial pressure] 61 mm[Hg] High [facility] CO2 [Moles/Vol] 38.6 mmol/L High 23.0 - 30.0 mmol/L [facility] HCO3 (Bld) [Moles/Vol] 36.8 mmol/L High 21.0 - 30.0 mmol/L [facility] Oxygen (BldV) [Partial pressure] 54.5 mm[Hg] mm Hg [facility] pH (BldV) 7.398 [pH] 7.320 - 7.420 [facility] Laboratory - Hematology and Cell countsOrdered By: Sharda Chacon on 08-04-2024 Hemoglobin (Bld) [Mass/Vol] 13.7 g/dL 12.0 - 16.0 g/dl [facility] No Panel InformationOrdered By: Katarina Browning on 08-04-2024 Interpretation and review of laboratory results Normal [facility] Legionella pneumophila Ag Not detected Not Detected [facility] Streptococcus pneumoniae Ag Not detected Not Detected [facility] Methodology: Lateral flow enzyme immunoassay This assay is approved for detection of antigens to Streptococcus pneumoniae and Legionella pneumophila serogroup 1; however, other L. pneumophila serogroups may also be detected. [facility] No Panel InformationOrdered By: Sharda Chacon on 08-04-2024 Amount Of Oxygen [facility] Interpretation and review of laboratory results Abnormal [facility] Source Of Oxygen High Flow Oxygen Therapy (FiO2) [facility] Assessment of oxygenation is best done with an arterial blood gas determination. Reference ranges for pO2, bicarbonate, and base excess are for mixed venous blood. Specimens drawn from a peripheral vein will often have higher values. [facility] No Panel Informationon 08-04 Extra Tube Hold for add-ons. [facility] Dre gong Comment on above: Auto resulted. [facility] Nursing Noteon 08-04-2024 Nursing Note Wound Care consulted for Pressure Injury Prevention. Pt's Emile score= 15 on 08/04 Pt's pressure points assessed. Pt sitting in chair upon arrival for visit. Pt's Heels, Back, Elbows, Occiput and ears all intact. Pt stood with max assist from ply bander for posterior assessment. Blanchable erythema/purple tissues noted to bilateral buttocks. DTI noted to right buttock, linear area of nonblanchable purple tissues, measures 1cm x 0.3cm, with surrounding blanchable erythema and purple tissues. See photo below. Wound TAX ACCOUNTING MANAGER group consulted. Brief in place. Pt incontinent [...] Verbalized understanding. Prevention Measures in place, including: [place] sheet with pillows/wedges, Heels elevated off bed on pillows, Zinc/Moisture Barrier ointment (applied), Waffle chair cushion (ordered for pt). Skin Care precaution order set in place. Dietitian consult order placed d/t wound. PT consult in place. D/W nursing staff. Right buttock Will continue to follow pt. Please secure chat for any questions or concerns. Maog Cavazos RN [facility] PNEUMONIA PCR PANELon 2024 PNEUMONIA PCR PANEL [...] CTX-M, IMP, KPC, NDM, OXA-48-like, and VIM. [facility] Comment on above: Performed By: #### L [id number], [id number], [id number] #### Communication Analyst: JOHAN BHANDARI ([id number]) [facility] [address] Progress Noteon 08-04-2024 Progress Note - Attestation signed by Jocelyn Tian PT at 08/04/2024 1:18 PM I certify that I was present during the entire session and guided the care given by the Student Physical Therapist. Cosign: Jocelyn Tian PT PHYSICAL THERAPY [facility] Initial Evaluation Name/MRN: Krish Peralta ([id number]) Evaluation Date: 08/04/2024 Date of : 1940 Admission Date: 08/03/2024 4:21 PM Age: 83 y.o. Room[facility]Bed: [facility] B Discharge Recommendation: Half-Way Facility Equipment Needed: No Assessment IMPRESSION: Pt [...] climbing assess (more content not included)... Normal [facility] RESPIRATORY CULTURE AND STAI Non 08-04-2024 RESPIRATORY [...] Non-susceptible NO = No Interpretation ] Normal [facility] Comment on above: Performed By: #### L [id number], [id number], [id number] #### Communication Analyst: JOHAN BHANDARI ([id number]) [facility] ([facility] [address] [place] [address] RESPIRATORY PATHOGENS PANEL BY PCRon 08-04-2024 RESPIRATORY [...] Detected ORDER COMMENTS: Methodology: Multiplex PCR Normal [facility] Comment on above: Performed By: #### L [id number], [id number], [id number] #### Communication Analyst: JOHAN BHANDARI ([id number]) [facility]ITAL[facility] ([facility]) [address] [place] [address] Respiratory pathogens DNA an d RNA panel LYDIA+non-probe (Lower resp)Ordered By: Kalli Mari on 08-04-2024 Acinetobacter baumannii complex Not detected Not Detected [facility] Adenovirus Not detected Not Detected [facility] Chlamydia pneumoniae Not detected Not Detected [facility] Enterobacter cloacae complex Not detected Not Detected [facility] Escherichia coli Not detected Not Detected [facility] FLUAV RNA LYDIA+non-probe Ql (Lower resp) Not detected Not Detected [facility] FLUBV RNA LYDIA+non-probe Ql (Lower resp) Not detected Not Detected [facility] Haemophilus influenzae Detected Abnormal Not Detected [facility] Human Metapneumovirus Not detected Not Detected [facility] Human Rhinovirus/Enterovirus Detected Abnormal Not Detected [facility] Interpretation and review of laboratory results Abnormal [facility] Klebsiella (Enterobacter) aerogenes Not detected Not Detected [facility] Klebsiella oxytoca Not detected Not Detected [facility] Klebsiella pneumoniae Not detected Not Detected [facility] Legionella pneumophila Not detected Not Detected [facility] Moraxella catarrhalis Not detected Not Detected [facility] Mycoplasma pneumoniae Not detected Not Detected [facility] Parainfluenza virus Not detected Not Detected [facility] Proteus spp Not detected Not Detected [facility] Pseudomonas aeruginosa Not detected Not Detected [facility] RSV RNA LYDIA+probe Ql (Resp) Not detected Not Detected [facility] S. agalactiae Org specific cx Ql (Vag fld) Not detected Not Detected [facility] SARS-CoV-2 (COVID-19) RNA LYDIA+non-probe Ql (Nph) Not detected Not Detected [facility] SARS-CoV-2 (COVID-19) RNA LYDIA+probe Ql (Unsp spec) Methodology: Multiplex PCR This panel does not test for SARS-CoV-2 (Covid-19). The following antimicrobial resistance gene is reported if the appropriate organism is detected: mecA. The following antimicrobial resistance genes are reported if detected and the appropriate organisms are detected: CTX-M, IMP, KPC, NDM, OXA-48-like, and VIM. [facility] Serratia marcescens Not detected Not Detected [facility] Staphylococcus aureus Not detected Not Detected [facility] Streptococcus pneumoniae Not detected Not Detected [facility] Streptococcus pyogenes Not detected Not Detected [facility] Respiratory pathogens DNA an d RNA panel LYDIA+non-probe (Nph)on 08-04-2024 Adenovirus Not detected Not Detected [facility] B. pertussis DNA LYDIA+probe Ql (Unsp spec) Not detected Not Detected [facility] Bordetella parapertussis Not detected Not Detected [facility] Chlamydia pneumoniae Not detected Not Detected [facility] Coronavirus 229E Not detected Not Detected [facility] Coronavirus HKU1 Not detected Not Detected [facility] Coronavirus NL63 Not detected Not Detected [facility] Coronavirus OC43 Not detected Not Detected [facility] FLUAV RNA LYDIA+non-probe Ql (Nph) Not detected Not Detected [facility] FLUBV RNA LYDIA+non-probe Ql (Nph) Not detected Not Detected [facility] Human Metapneumovirus Not detected Not Detected [facility] Human Rhinovirus/Enterovirus Not detected Not Detected [facility] Interpretation and review of laboratory results Normal [facility] Mycoplasma pneumoniae Not detected Not Detected [facility] Parainfluenza 1 Not detected Not Detected [facility] Parainfluenza 2 Not detected Not Detected [facility] Parainfluenza 3 Not detected Not Detected [facility] Parainfluenza 4 Not detected Not Detected [facility] Respiratory Syncytial Virus Not detected Not Detected [facility] SARS-CoV-2 (COVID-19) RNA LYDIA+non-probe Ql (Nph) Not detected Not Detected [facility] Methodology: Multiplex PCR [facility] Vital signsOrdered By: Sharda Chacon on 08-04-2024 Oxygen saturation in Venous blood 87.9 % [facility] CBC W Auto Differential pane l (Bld)Ordered By: Ivana Nava on 08-03-2024 Erythrocyte distribution width (RBC) [Ratio] 14.1 % 11.5 - 15.0 % [facility] Hematocrit (Bld) [Volume fraction] 41.5 % 35.0 - 47.0 % [facility] Hemoglobin (Bld) [Mass/Vol] 13.2 g/dL 11.7 - 16.0 g/dL [facility] Interpretation and review of laboratory results Abnormal [facility] MCH (RBC) [Entitic mass] 28.9 pg 26. 0 - 34.0 pg [facility] MCHC (RBC) [Mass/Vol] 31.8 % 30.5 - 36.0 % [facility] MCV (RBC) [Entitic vol] 90.8 fL 77.0 - 99.0 fL [facility] Platelet mean volume (Bld) [Entitic vol] 9.7 fL 9.0 - 12.7 fL [facility] Platelets (Bld) [#/Vol] 141 10*3/uL 140 - 440 10*3/uL [facility] RBC (Bld) [#/Vol] 4.57 10*6/uL 3.80 - 5.2 0 10*6/uL [facility] WBC (Bld) [#/Vol] 11.7 10*3/uL High 3.6 - 10.7 10*3/uL [facility] CBC WITH AUTO DIFFERENTIALon 08-03-2024 Erythrocyte distribution width (RBC) [Ratio] 14.1 % Normal 11.5-15.0 [facility] Comment on above: Performed By: #### L [id number], [id number] ####Communication Analyst: JOHAN BHANDARI ([id number])[facility] ([facility])[address] [place] [address] Hematocrit (Bld) [Volume fraction] 41.5 % Normal 35.0-47.0 [facility] Comment on above: Performed By: #### L [id number], [id number] ####Communication Analyst: JOHAN BHANDARI ([id number])[facility] ([facility])[address] Hemoglobin (Bld) [Mass/Vol] 13.2 g/dL Normal 11.7-16.0 [facility] Comment on above: Performed By: #### L [id number], [id number] ####Communication Analyst: JOHAN BHANDARI ([id number])[facility] ([facility])[address] MCH (RBC) [Entitic mass] 28.9 pg Normal 26.0-34.0 [facility] Comment on above: Performed By: #### L [id number], [id number] ####Communication Analyst: JOHAN BHANDARI ([id number])RASHAD GUTIERREZJUAN JOSE ([facility])[address] MCHC 31.8 % Normal 30.5-36.0 [facility] Comment on above: Performed By: #### L [id number], [id number] ####Communication Analyst: JOHAN BHANDARI ([id number])[facility]ITALSujata GUTIERREZLOVELACE REGION[facility]PITAL, ROSWELLIsabela ([facility])[address] MCV (RBC) [Entitic vol] 90.8 fL Normal 77.0-99.0 S [facility] Comment on above: Performed By: #### L [id number], [id number] ####Communication Analyst: JOHAN BHANDARI ([id number])[facility] HOSPITALSujata GUTIERREZJUAN JOSE ([facility])[address] Platelet mean volume (Bld) [Entitic vol] 9.7 fL Normal 9.0-12.7 [facility] Comment on above: Performed By: #### L [id number], [id number] ####Communication Analyst: JOHAN BHANDARI ([phone])[facility] HOSPITALSujata GUTIERREZLOVELACE REGIONAL HOSPITAL, ROSWELLIsabela ([facility])[address] [place] [address] Platelets (Bld) [#/Vol] 141 10*3/uL Normal 140-440 [facility] Comment on above: Performed By: #### L [id number], [id number] ####Communication Analyst: JOHAN BHANDARI ([id number])[facility] HOSPITALSujata GUTIERREZLOVELACE REGIONAL HOSPITAL, ROSWELLN ([facility])[address] RBC (Bld) [#/Vol] 4.57 10*6/uL Normal 3.80-5.20 [facility] Comment on above: Performed By: #### L [id number], [id number] ####Communication Analyst: JOHAN BHANDARI ([id number])[facility] HOSPITALA [place] ([facility])[address] WBC (Bld) [#/Vol] 11.7 10*3/uL High 3.6-10.7 [facility] Comment on above: Performed By: #### L [id number], [id number] ####Communication Analyst: JOHAN BHANDARI ([id number])[facility]ITALA [place] ([facility])[address] COMPREHENSIVE METABOLIC PANE Alex 08-03-2024 Albumin [Mass/Vol] 3.0 g/dL Low 3.4-4.8 [facility] Comment on above: Performed By: #### L [id number] #### Communication Analyst: JOHAN BHANDARI ([id number]) [facility]ITALA [place] ([facility]) [address] ALP [Catalytic activity/Vol] 85 U/L Normal 40-150 [facility] Comment on above: Performed By: #### L [id number] #### Communication Analyst: JOHAN BHANDARI ([id number]) [facility]ITALA [facility] ([facility]) [address] ALT [Catalytic activity/Vol] U/L Normal <30 [facility] Comment on above: Performed By: #### L [id number] #### Communication Analyst: JOHAN BHANDARI ([id number]) [facility]A [place] ([facility]) [address] Anion gap [Moles/Vol] 11 mmol/L Normal 3-13 [facility] Comment on above: Performed By: #### L [id number] #### Communication Analyst: JOHAN BHANDARI ([id number]) [facility] [place] ([facility]) [address] AST [Catalytic activity/Vol] 17 U/L Normal <34 [facility] Comment on above: Performed By: #### L [id number] #### Communication Analyst: JOHAN BHANDARI ([id number]) [facility]ITALA [facility]BL[facility]ELACE [facility], [facility] ([facility]) [address] Bilirubin [Mass/Vol] 0.8 mg/dL Normal <1.2 [facility] Comment on above: Performed By: #### L [id number] #### Communication Analyst: JOHAN BHANDARI ([id number]) [facility]ITALSujata MIRANDA ([facility]) [address] Calcium [Mass/Vol] 9.7 mg/dL Normal 8.8-10.0 [facility] Comment on above: Performed By: #### L [id number] #### Communication Analyst: JOHAN BHANDARI ([id number]) [facility] ([facility]) [address] Chloride [Moles/Vol] 96 mmol/L Low 98-107 [facility] Comment on above: Performed By: #### L [id number] #### Communication Analyst: JOHAN BHANDARI ([id number]) [facility]PITALSujata GUTIERREZLOVELACE REGIONAL HOSPITAL, ROSWELLN ([facility]) [address] CO2 [Moles/Vol] 29 mmol/L Normal 23-31 [facility] Comment on above: Performed By: #### L [id number] #### Communication Analyst: JOHAN BHANDARI ([id number]) [facility], [facility] ([facility]) [address] Creatinine [Mass/Vol] 0.79 mg/dL Normal 0.57-1.11 [facility] Comment on above: Performed By: #### L [id number] #### Communication Analyst: JOHAN BHANDARI ([phone]) [facility] ([facility]) [address] [place] [address] [place] GLOMERULAR FILTRATION RATE ML/MIN/1.73 SQ M.PREDICTED 73.4 mL/min/1.73m*2 Normal >60.0 [facility] Comment on above: Result Comment: Calc ulation based on the Chronic Kidney Disease Epidemiology Collaboration (CKD-EPI) equation refit without adjustment for race Performed By: #### L [id number] #### Communication Analyst: JOHAN BHANDARI ([id number]) [facility] ([facility]) [address] Glucose [Mass/Vol] 90 mg/dL Normal 82-115 [facility] Comment on above: Performed By: #### L [id number] #### Communication Analyst: JOHAN BHANDARI ([id number]) [facility] ([facility]) [address] [place], [place] [id number] [place] [address] Potassium [Moles/Vol] 4.0 mmol/L Normal 3.5-5.1 [facility] Comment on above: Result Comment: [facility] potassium values may be up to 0.5 mmol/L lower than serum values. Performed By: #### L [id number] #### Communication Analyst: JOHAN BHANDARI ([id number]) [facility] ([facility]) [address] Protein [Mass/Vol] 7.7 g/dL Normal 6.4-8.3 [facility] Comment on above: Performed By: #### L [id number] #### Communication Analyst: JOHAN BHANDARI ([id number]) [facility] ([facility]) [address] Sodium [Moles/Vol] 136 mmol/L Normal 136-145 [facility] Comment on above: Performed By: #### L [id number] #### Communication Analyst: JOHAN BHANDARI ([id number]) [facility] ([facility]) [address] Urea nitrogen [Mass/Vol] 13 mg/dL Normal 9-23 [facility] Comment on above: Performed By: #### L [id number] #### Communication Analyst: JOHAN BHANDARI ([id number]) [facility] ([facility]) [address] Comprehensive metabolic 1998 panelon 08-03-2024 Albumin [Mass/Vol] 3 g/dL Low 3.4 - 4.8 g/dL [facility] ALP [Catalytic activity/Vol] 85 U/L 40 - 150 U/L [facility] ALT [Catalytic activity/Vol] U/L NINF - 30 U/L [facility] [facility] Anion gap [Moles/Vol] 11 mmol/L 3 - 13 mmol/L [facility] AST [Catalytic activity/Vol] 17 U/L [facility] - 34 U/L [facility] Bilirubin [Mass/Vol] 0.8 mg/dL NINF - 1.2 mg/dL [facility] Calcium [Mass/Vol] 9.7 mg/dL 8.8 - 10. 0 mg/dL [facility] Chloride [Moles/Vol] 96 mmol/L Low 98 - 10 7 mmol/L [facility] CO2 [Moles/Vol] 29 mmol/L 23 - 31 mmol/L [facility] Creatinine [Mass/Vol] 0.79 mg/dL 0.57 - 1.11 mg/dL [facility] GFR/1.73 sq M.predicted (S/P/Bld) [Vol rate/Area] 73.4 mL/min - PINF [facility] Comment on above: Calculation based on the Chronic Kidney Disease Epidemiology Collaboration (CKD-EPI) equation refit without adjustment for race Glucose [Mass/Vol] 90 mg/dL 82 - 115 mg/dL [facility] Interpretation and review of laboratory results Abnormal [facility] Potassium [Moles/Vol] 4 mmol/L 3.5 - 5.1 mmol/L [facility] Comment on above: Plasma potassium gustavo ues may be up to 0.5 mmol/L lower than serum values. Protein [Mass/Vol] 7.7 g/dL 6.4 - 8.3 g/dL [facility] Sodium [Moles/Vol] 136 mmol/L 136 - 145 mmol/L [facility] Urea nitrogen [Mass/Vol] 13 mg/dL 9 - 23 mg/dL [facility] ECG 12-LEADon 08-03-2024 ECG 12-LEAD IMPRESSION: Sinus rhythm Nonspecific IVCD with LAD LVH with secondary repolarization abnormality Anterior Q waves, possibly due to LVH Electronically Signed On 08-03-2024 17:43:39 EDT by Khari Souza [facility] ED Nursing Noteon 08-03-2024 ED Nursing Note Patient was placed o n a Venti mask at 50% FiO2. Normal [facility] ED Nursing Note Patient arrives from SNF via EMS due to SOB and low pulse oximetry readings. Ems reports the capnography was in the 50's for CO2 level. The SNF was trying all day to get the patient to agree to come to the ED for evaluation and she refused. Patient finally agrees but refused the EMS BiPap. Normal [facility] ED Provider Noteon ED Provider Note EMERGENCY DEPARTMENT ENCOUNTER Pt Name: Krish Peralta Birthdate 1940 Date of evaluation: 08/03/2024 ED Provider: Stacia Juarez DO CHIEF COMPLAINT Chief Complaint Patient presents with Shortness of Breath HISTORY OF PRESENT ILLNESS (Location/Symptom, Timing/Onset, Context/Setting, Quality, Duration, Modifying Factors, Severity) Note limiting factors. I wore appropriate PPE for the entirety of this encounter. HPI Krish Peralta is a 83 y.o. who presents [...] Right arm (more content not included)... Normal [facility] HIGH SENSITIVITY TROPONIN, S ERIAL BASELINEon 08-03-2024 TROPONIN HS SERIAL BASELINE 3 ng/L Normal <=14 [facility] Comment on above: Result Comment: In i ndividuals presenting with symptoms > 2h, a baseline troponin <= 5 ng/L suggests acute cardiac injury is unlikely and further serial testing is generally not indicated. Performed By: #### L [id number], [id number], [id number] #### Communication Analyst: JOHAN BHANDARI ([phone]) [facility] ([facility]) [address] [place] [address] HIGH SENSITIVITY TROPONIN, S ERIAL, SECOND TESTon 08-03-2024 2H TROPONIN HS (SERIAL 2ND TROPONIN) 4 ng/L Normal <=14 [facility] Comment on above: Result Comment: Risi ng or falling troponin delta below 2 ng/L as compared to baseline value suggests that acute cardiac injury is unlikely. Performed By: #### L [id number] ####Communication Analyst: JOHAN BHANDARI ([phone])[facility] ([facility])[address] [place] [address] Laboratory - Hematology and Cell countson 08-03-2024 Band form neutrophils (Bld) [#/Vol] 0.2 10*3/uL High NINF - 0.0 10*3/uL [employer] Band form neutrophils/100 WBC (Bld) 2 % High NINF - 0 % [facility] Giant platelets LM Ql (Bld) Rare Abnormal (none) [facility] Lymphocytes (Bld) [#/Vol] 1.1 10*3/uL 1.0 - 4.3 10*3/uL [facility] Lymphocytes/100 WBC (Bld) 9 % Low 15 - 45 % [facility] Monocytes (Bld) [#/Vol] 0.7 10*3/uL 0.0 - 0.9 10*3/uL [facility] Monocytes/100 WBC (Bld) 6 % 5 - 13 % [facility] Myelocytes (Bld) [#/Vol] 0.1 10*3/uL High KRYSTIN F - 0.0 10*3/uL [facility] Myelocytes/100 WBC (Bld) 1 % High NINF - 0 % [facility] Neutrophils (Bld) [#/Vol] 9.8 10*3/uL High 1.8 - 7.5 10*3/uL [facility] Ovalocytes LM Ql (Bld) Rare Abnormal (none) [facility] RBC morphology finding Nom (Bld) abnormal [facility] Segmented neutrophils/100 WBC (Bld) 82 % 38 - 82 % [facility] Stomatocytes LM Ql (Bld) Slight Abnormal (none) [facility] MANUAL DIFFERENTIAL (CELLAVI ASHLIE)on 08-03-2024 BAND NEUTROPHILS TOTAL PER COUNTED LEUKOCYTES BY MANUAL COUNT 2 Normal [facility] Comment on above: Performed By: #### L [id number], [id number] ####Communication Analyst: JOHAN BHANDARI ([phone])[facility] ([facility])[address] BANDS (10*3/UL) IN BLOOD-CELLAVISION 0.2 10*3/uL High <=0.0 [facility] Comment on above: Performed By: #### L [id number], [id number] ####Communication Analyst: JOHAN BHANDARI ([phone])[facility] ([facility])[address] BASOPHILS TOTAL PER COUNTED LEUKOCYTES BY MANUAL COUNT Normal [facility] Comment on above: Performed By: #### L [id number], [id number] ####Communication Analyst: JOHAN BHANDARI ([phone])[facility] ([facility])[address] [place] [address] [place] BLASTS TOTAL PER COUNTED LEUKOCYTES BY MANUAL COUNT [facility] Comment on above: Performed By: #### L [id number], [id number] ####Communication Analyst: JOHAN DILLONCER ([phone])[facility] ([facility])[address] [place] [address] [place] EOSINOPHILS TOTAL PER COUNTED LEUKOCYTES BY MANUAL COUNT [facility] Comment on above: Performed By: #### L [id number], [id number] ####Communication Analyst: JOHAN ALEGRIAELVIRACANDY ([phone])[facility] ([facility])[address] [place] [address] [place] LYMPHOCYTES (10*3/UL) IN BLOOD-CELLAVISION 1.1 10*3/uL Normal 1.0-4.3 [facility] Comment on above: Performed By: #### L [id number], [id number] ####Communication Analyst: JOHAN WATTSCANDY ([phone])[facility] ([facility])[address] [place] [address] [place] LYMPHOCYTES TOTAL PER COUNTED LEUKOCYTES BY MANUAL COUNT 9 Normal [facility] Comment on above: Performed By: #### L [id number], [id number] ####Communication Analyst: JOHAN BHANDARI ([phone])[facility] ([facility])[address] [place] [address] [place] LYMPHOCYTES/100 LEUKOCYTES IN BLOOD-CELLAVISION 9 % Low 15-45 [facility] Comment on above: Performed By: #### L [id number], [id number] ####Communication Analyst: JOHAN DILLONCER ([phone])[facility] ([facility])[address] [place] [address] [place] METAMYELOCYTES TOTAL PER COUNTED LEUKOCYTES BY MANUAL COUNT [facility] Comment on above: Performed By: #### L [id number], [id number] ####Communication Analyst: JOHAN BHANDARI ([phone])[facility] ([facility])[address] [place] [address] [place] MONOCYTES (10*3/UL) IN BLOOD-CELLAVISION 0.7 10*3/uL Normal 0.0-0.9 [facility] Comment on above: Performed By: #### L [id number], [id number] ####Communication Analyst: JOHAN BHANDARI ([phone])[facility] [place] ([facility])[address] [place] [address] [place] MONOCYTES TOTAL PER COUNTED LEUKOCYTES BY MANUAL COUNT 6 Normal [facility] Comment on above: Performed By: #### L [id number], [id number] ####Communication Analyst: JOHAN BHANDARI ([id number])[facility] [place] ([facility])[address] [place] [address] [place] MONOCYTES/100 LEUKOCYTES IN BLOOD-LOLY 6 % Normal 5-13 [facility] Comment on above: Performed By: #### L [id number], [id number] ####Communication Analyst: JOHAN BHANDARI ([phone])[facility] [place] ([facility])[address] [place] [address] [place] MYELOCYTES (10*3/UL) IN BLOOD-CELLAVISION 0.1 10*3/uL High <=0.0 [facility] Comment on above: Performed By: #### L [id number], [id number] ####Communication Analyst: JOHAN BHANDARI ([phone])[facility] [place] ([facility])[address] [place] [address] [place] MYELOCYTES COUNTED BY MANUAL COUNT 1 Normal [facility] Comment on above: Performed By: #### L [id number], [id number] ####Communication Analyst: JOHAN BHANDARI ([phone])[facility] [place] ([facility])[address] [place] [address] [place] MYELOCYTES/100 LEUKOCYTES IN BLOOD-CELLAVISION 1 % High <=0 [facility] Comment on above: Performed By: #### L [id number], [id number] ####Communication Analyst: JOHAN BHANDARI ([id number])[facility] ([facility])[address] [place] [address] [place] NEUTROPHILS BAND FORM/100 LEUKOCYTES IN BLOOD-CELLAVISI 2 % High <=0 [facility] Comment on above: Performed By: #### L [id number], [id number] ####Communication Analyst: JOHAN BHANDARI ([phone])[facility] ([facility])[address] [place] [address] [place] NEUTROPHILS TOTAL PER COUNTED LEUKOCYTES BY MANUAL COUNT 83 Normal [facility] Comment on above: Performed By: #### L [id number], [id number] ####Communication Analyst: JOHAN BHANDARI ([phone])[facility] [place] ([facility])[address] [place] [address] [place] OVALOCYTES PRESENCE IN BLOOD BY LIGHT MICROSCOPY Rare Abnormal (none) [facility] Comment on above: Performed By: #### L [id number], [id number] ####Communication Analyst: JOHAN BHANDARI ([phone])[facility] [place] ([facility])[address] [place] [address] [place] PLATELETS GIANT PRESENCE IN BLOOD BY LIGHT MICROSCOPY Rare Abnormal (none) [facility] Comment on above: Performed By: #### L [id number], [id number] ####Communication Analyst: JOHAN BHANDARI ([phone])[facility] [place] ([facility])[address] [place] [address] [place] PROMYELOCYTES TOTAL PER COUNTED LEUKOCYTES BY MANUAL COUNT Normal [facility] Comment on above: Performed By: #### L [id number], [id number] ####Communication Analyst: JOHAN BHANDARI ([id number])[facility] [place] ([facility])[address] [place] [address] [place] RBC MORPHOLOGY IN BLOOD abnormal Normal [facility] Comment on above: Performed By: #### L [id number], [id number] ####Communication Analyst: JOHAN BHANDARI ([phone])[facility] [place] ([facility])[address] SEGMENTED NEUTROPHILS (10*3/UL) IN BLOOD-CELLAVISION 9.8 10*3/uL High 1.8-7.5 [facility] Comment on above: Performed By: #### L [id number], [id number] ####Communication Analyst: JOHAN BHANDARI ([phone])[facility] ([facility])[address] SEGMENTED NEUTROPHILS/100 LEUKOCYTES-CE 82 % Normal 38-82 [facility] Comment on above: Performed By: #### L [id number], [id number] ####Communication Analyst: JOHAN BHANDARI ([phone])[facility] ([facility])[address] STOMATOCYTES IN BLOOD BY LIGHT MICROSCOPY Slight Abnormal (none) [facility] Comment on above: Performed By: #### L [id number], [id number] ####Communication Analyst: JOHAN BHANDARI ([phone])[facility] ([facility])[address] UNCLASSIFIED CELLS TOTAL PER COUNTED LEUKOCYTES BY MANUAL COUNT Normal [facility] Comment on above: Performed By: #### L [id number], [id number] ####Communication Analyst: JOHAN BHANDARI ([phone])[facility] ([facility])[address] VARIANT LYMPHOCYTES TOTAL PER COUNTED LEUKOCYTES BY MANUAL COUNT Normal [facility] Comment on above: Performed By: #### L [id number], [id number] ####Communication Analyst: JOHAN BHANDARI ([phone])[facility] ([facility])[address] NT PRO BNPon 08-03-2024 Natriuretic peptide B (Bld) [Mass/Vol] 890 pg/mL High <450 [facility] Comment on above: Performed By: #### L [id number], [id number], [id number] #### Communication Analyst: JOHAN BHANDARI ([phone]) [facility] ([facility]) [address] [place] [address] [facility] Natriuretic peptide B [Mass/ Vol]on 08-03-2024 Interpretation and review of laboratory results Abnormal [facility] Natriuretic peptide B (Bld) [Mass/Vol] 890 pg/mL High NINF - 450 pg/mL [facility] No Panel Informationon 08-03 2h Troponin HS (Serial 2nd Troponin) 4 ng/L NINF - 14 ng/L [facility] Comment on above: Rising or falling tr oponin delta below 2 ng/L as compared to baseline value suggests that acute cardiac injury is unlikely. Interpretation and review of laboratory results Normal [facility] Atypical Lymphocytes Manual [facility] Bands Manual 2 [facility] Basophils Manual [facility] alth Blasts Manual [facility]alt h Eosinophils Manual [facility] Interpretation and review of laboratory results Abnormal [facility] Lymphocytes Manual 9 [facility] Metamyelocytes Manual [facility] Monocytes Manual 6 [facility] alth Myelocytes Manual 1 [facility] ealth Neutrophils Manual 83 [facility] Promyelocytes Manual [facility] Unclassified Cells, Manual [facility] Interpretation and review of laboratory results Normal [facility] Troponin HS Serial Baseline 3 ng/L NINF - 14 ng/L [facility] Comment on above: In individuals prese nting with symptoms > 2h, a baseline troponin <= 5 ng/L suggests acute cardiac injury is unlikely and further serial testing is generally not indicated. 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 Anterior Q waves, possibly due to LVH Electronically Signed On 08-03-2024 17:43:39 EDT by Khari Souza [facility] No Panel InformationOrdered By: Khari Souza on 08-03-2024 P [place] 61 degrees [facility] [employer] Work Phone: [place] Interval 197 ms [facility] [employer] Work Phone: QRS [place] -47 degrees [facility] [employer] Work Phone: QRSD Interval 124 ms [facility] [employer] BRAIN Work Phone: QT Interval 399 ms [facility] Work Phone: QTC Interval 482 ms [facility] [employer] Work Phone: T Wave [place] 82 degrees [facility] [employer] Work Phone: [facility] [employer] Work Phone: Vital signsOrdered By: Osvaldo Souza on 08-03-2024 Heart rate 88 /min bpm [facility] [employer] Work Phone: XR Chest Single viewon 08-03 Patient Name: KRISH PERALTA : 1940 Exam Date/Time: 08/03/2024 17:38 Procedure: XR CHEST [...] MD Electronically Signed Date/Time: 08/03/2024 5:43 PM [facility] Sterling Tian MD - 08/03/2024 Patient Name: KRISH PERALTA : 1940 Exam Date/Time: 08/03/2024 17:38 Procedure: XR CHEST [...] Electronically Signed Date/Time: 08/03/2024 5:43 PM EDT [facility] Radiology Study observation (narrative) [facility] XR Chest Single viewOrdered By: Sterling Tian on 08-03-2024 [facility] [employer] Work Phone: Respiratory Cultureon 2024 RESPC Streptococcus [...] S Penicillin Islt GERMAN <=0.06 S Normal [facility] Comment on above: Performed By: #### L 100.0500, L500.2500 #### [facility] [address] [place], [place], [id number] Urine Cultureon 04-19-2024 URC Escherichia coli [place] Count >100,000 Escherichia coli: REACTION Ampicillin Islt [...] TMP SMX Islt GERMAN <=20 S Normal [facility] Comment on above: Performed By: #### L 100.0500, L500.2500 #### [facility] [address] [place], [place], [address] Basic Metabolic Profile (BMP )on 04-18-2024 BUN/CRE 33.2 RATIO High 10-20 [facility] Comment on above: Performed By: #### L 100.0500, L500.2500 #### [facility] [address] [place], [address] CA,Total 9.9 mg/dL Normal 8.5-10.1 [facility] Comment on above: Performed By: #### L 100.0500, L500.2500 #### [facility] [address] [place], [address] Chloride [Moles/Vol] 98 mmol/L Normal 98-107 [facility] Comment on above: Performed By: #### L 100.0500, L500.2500 #### [facility] [address] [place], [address] CO2 [Moles/Vol] 29.0 mmol/L Normal 21.0-32.0 [facility] Comment on above: Performed By: #### L 100.0500, L500.2500 #### [facility] [address] [place], [address] Creatinine [Mass/Vol] 0.72 mg/dL Normal 0.55-1.02 [facility] Comment on above: Result Comment: The validity of the calculated GFR GFRAA in patients over 70 years has not been determined. Clinical correlation is essential. Performed By: #### L 100.0500, L500.2500 #### [facility] [address] [place], [address] ECRCL 52.82 ml/min Normal [facility] Comment on above: Performed By: #### L 100.0500, L500.2500 #### [facility] [address] [place], [address] EST GFR - AA 99 mL/min Normal >60 [facility] Comment on above: Result Comment: Afri can [place] GFR Calc Performed By: #### L 100.0500, L500.2500 #### [facility] [address] [place], [address] GAP 10 Normal 5-15 [facility] Comment on above: Performed By: #### L 100.0500, L500.2500 #### [facility] [address] [place], [address] GFR/1.73 sq M.predicted among non-blacks MDRD (S/P/Bld) [Vol rate/Area] 82 mL/min/{1.73_m2} Normal >60 [facility] Comment on above: Result Comment: Non- GFR Calc Performed By: #### L 100.0500, L500.2500 #### [facility] [address] [place], [address] Glucose [Mass/Vol] 107 mg/dL High 74-106 [facility] Comment on above: Result Comment: Fast ing Glucose result from 100 to 125 mg/dL suggests IMPAIRED HOMEOSTASIS per A.D.A. criteria. Performed By: #### L 100.0500, L500.2500 #### [facility] [address] [place], [address] Potassium [Moles/Vol] 4.4 mmol/L Normal 3.5-5.1 [facility] Comment on above: Performed By: #### L 100.0500, L500.2500 #### [facility] [address] [place], [address] Sodium [Moles/Vol] 137 mmol/L Normal 136-145 [facility] Comment on above: Performed By: #### L 100.0500, L500.2500 #### [facility] [address] [place], [address] Urea nitrogen [Mass/Vol] 24 mg/dL High 7-18 [facility] Comment on above: Performed By: #### L 100.0500, L500.2500 #### [facility] [address] [place], [address] CBC-Complete Blood Cnt No Janae morin 04-18-2024 PLT TNP Normal 150-450 [facility] Comment on above: Result Comment: Arsenio tabor note: For this sample, a platelet estimate is provided rather than a platelet count due to platelet clumping. Other parameters associated with this sample are not affected by platelet clumping. If a more accurate platelet count is required, a redraw of the patient will be necessary. ADQ PLT COUNT Performed By: #### L 100.0500, L500.2500 #### [facility] [address] [place], [address] Erythrocyte distribution width (RBC) [Ratio] 14.3 % Normal 11.6-14.6 [facility] Comment on above: Performed By: #### L 100.0500, L500.2500 #### [facility] [address] [place], [address] Hematocrit (Bld) [Volume fraction] 41.9 % Normal 37-47 [facility] Comment on above: Performed By: #### L 100.0500, L500.2500 #### [facility] [address] [place], [address] Hemoglobin (Bld) [Mass/Vol] 13.5 g/dL Normal 12.0-15.0 [facility] Comment on above: Performed By: #### L 100.0500, L500.2500 #### [facility] [address] [place], [address] MCH (RBC) [Entitic mass] 28.2 pg Normal 27.0-32.0 [facility] Comment on above: Performed By: #### L 100.0500, L500.2500 #### [facility] [address] [place], [address] MCHC (RBC) [Mass/Vol] 32.2 g/dL Normal 32-36 [facility] Comment on above: Performed By: #### L 100.0500, L500.2500 #### [facility] [address] [place], [address] MCV (RBC) [Entitic vol] 87.7 fL Normal 81-99 [facility] Comment on above: Performed By: #### L 100.0500, L500.2500 #### [facility] [address] [place], [address] Platelet mean volume (Bld) [Entitic vol] 10.0 fL Normal 6.2-12.0 [facility] Comment on above: Performed By: #### L 100.0500, L500.2500 #### [facility] [address] [place], [address] RBC (Bld) [#/Vol] 4.78 10*6/uL Normal 4.2-5.4 [facility] Comment on above: Performed By: #### L 100.0500, L500.2500 #### [facility] [address] [place], [address] RDW SD 46.3 fl High 35.1-43.9 [facility] Comment on above: Performed By: #### L 100.0500, L500.2500 #### [facility] [address] [place], [address] WBC (Bld) [#/Vol] 8.7 10*3/uL Normal 4.4-11.0 [facility] Comment on above: Performed By: #### L 100.0500, L500.2500 #### [facility] [address] [place], [address] Gram Stainon 04-18-2024 GS Acceptable Specimen? Yes (<25 Epithelial cells per/lpf) Gram Stain 4+ White Blood Cells 3+ Gram positive diplococci No Epithelial cells Normal [facility] Comment on above: Performed By: #### L 100.0500, L500.2500 #### [facility] [address] [place], [address] BNP,B-Type NATRIURETIC PEPTI Savi 04-17-2024 Natriuretic peptide B (Bld) [Mass/Vol] 84.1 pg/mL Normal 0-100 [facility] Comment on above: Performed By: #### L 400.0001, #### [facility] [address] [place], [address] Basic Metabolic Profile (BMP )on 04-17-2024 BUN/CRE 20.6 RATIO High 10-20 [facility] Comment on above: Performed By: #### L 400.0001, #### [facility] [address] [place], [address] CA,Total 9.8 mg/dL Normal 8.5-10.1 [facility] Comment on above: Performed By: #### L 400.0001, #### [facility] [address] [place], [address] Chloride [Moles/Vol] 95 mmol/L Low 98-107 [facility] Comment on above: Performed By: #### L 400.0001, #### [facility] [address] [place], [address] CO2 [Moles/Vol] 36.0 mmol/L High 21.0-32.0 [facility] [facility] Comment on above: Performed By: #### L 400.0001, #### [facility] [address] [place], [address] Creatinine [Mass/Vol] 0.83 mg/dL Normal 0.55-1.02 [facility] Comment on above: Result Comment: The validity of the calculated GFR GFRAA in patients over 70 years has not been determined. Clinical correlation is essential. Performed By: #### L 400.0001, #### [facility] [address] [place], [address] ECRCL 52.04 ml/min Normal [facility] Comment on above: Performed By: #### L 400.0001, #### [facility] [address] [place], [address] EST GFR - AA 84 mL/min Normal >60 [facility] Comment on above: Result Comment: Afri can Kazakh GFR Calc Performed By: #### L 400.0001, #### [facility] [address] [place], [address] GAP 5 Normal 5-15 [facility] Comment on above: Performed By: #### L 400.0001, #### [facility] [address] [place], [address] GFR/1.73 sq M.predicted among non-blacks MDRD (S/P/Bld) [Vol rate/Area] 70 mL/min/{1.73_m2} Normal >60 [facility] Comment on above: Result Comment: Non- GFR Calc Performed By: #### L 400.0001, #### [facility] [address] [place], [address] Glucose [Mass/Vol] 85 mg/dL Normal 74-106 [facility] Comment on above: Performed By: #### L 400.0001, #### [facility] [address] [place], [address] Potassium [Moles/Vol] 4.1 mmol/L Normal 3.5-5.1 [facility] Comment on above: Result Comment: Slig ht Hemolysis, Result may be falsely increased. Performed By: #### L 400.0001, #### [facility] [address] [place], [address] Sodium [Moles/Vol] 136 mmol/L Normal 136-145 [facility] Comment on above: Performed By: #### L 400.0001, M100.2200 #### [facility] [address] [place], [address] Urea nitrogen [Mass/Vol] 17 mg/dL Normal 7-18 [facility] Comment on above: Performed By: #### L 400.0001, M100.2200 #### [facility] [address] [place], [address] Blood G[facility] by [facility] DONY TEST Positive Normal [facility] Comment on above: Performed By: #### L 9000.0800 #### [facility] [address] [place], [address] Base excess Calc (Bld) [Moles/Vol] 12 mmol/L High -2 to +2 [facility] Comment on above: Performed By: #### L 9000.0800 #### [facility] [address] [place], [address] Blood Gas Type ART Normal [facility] Comment on above: Performed By: #### L 9000.0800 #### [facility] [address] [place], [address] CO2 [Moles/Vol] 38 mmol/L Normal [facility] Comment on above: Performed By: #### L 9000.0800 #### [facility] [address] [place], [address] FI02 8.0 Normal [facility] Comment on above: Performed By: #### L 9000.0800 #### [facility] [address] [place], [address] HCO3 (Bld) [Moles/Vol] 36.1 mmol/L High 22-26 [facility] Comment on above: Performed By: #### L 9000.0800 #### [facility] [address] [place], [address] Mode Not entered Normal [facility] Comment on above: Performed By: #### L 9000.0800 #### [facility] [address] [place], [address] O2 Delivery Dev Not entered Normal [facility] Comment on above: Performed By: #### L 9000.0800 #### [facility] [address] [place], [address] pCO2 53.5 mmHg High 35-45 [facility] Comment on above: Performed By: #### L 9000.0800 #### [facility] [address] [place], [address] pH (Bld) 7.44 [pH] Normal 7.35-7.45 [facility] Comment on above: Performed By: #### L 9000.0800 #### [facility] [address] [place], [address] PO2 78 mmHG Normal 75-100 [facility] Comment on above: Performed By: #### L 9000.0800 #### [facility] [address] [place], [address] SITE R Radial Normal [facility] Comment on above: Performed By: #### L 9000.0800 #### [facility] [address] [place], [address] SO2 96 Normal 95-99 [facility] Comment on above: Performed By: #### L 9000.0800 #### [facility] [address] [place], [address] CBC W/Diff, Automatedon 02-0 SMEAR COMMENT SCANNED Normal [facility] Comment on above: Result Comment: MONO CYTOSIS PRESENT Performed By: #### L 400.0001, M100.2200 #### [facility] [address] [place], [address] Chest 1 View (Portable)on Chest 1 View (Portable) [facility] Imaging Services [address] [place] [address] Chest 1 View (Portable) MR#: [id number] Acct: [id number] Name: KRISH PERALTA Rep #: [id number] : 1940 F 83 From: Wil Tompkins i, DO PCP: Status: PRE ER Study: Chest 1 View (Portable) Date of Exam: 04/17/24 Exam# [id number] Ordering Dr: Ayan Virk DO PROCEDURE: Portable [...] changes of the glenohumeral joints. Reading Location: [facility] CC: Ayan Virk DO [employer] Crew Chief: Signed Normal [facility] Emergency Department Summary on 04-17-2024 Emergency Department Summary [facility] Medical Records Department [address] [place] [address] Emergency Department Summary 04/17/24 MR#: [id number] Acct: [id number] Name: KRISH PERALTA Rep #: [id number] : 1940 83 From: Ayan Virk DO [...] around 2 in the afternoon. Patient and senior care staff state it seemed to have worsened [...] 2 DuoNeb's and Solu-Medrol prior to arrival [facility] Medical History Hypothyroidism, unspecified Other intervertebral disc [...] and rhythm (more content not included)... Normal [facility] H AND P Exam - Hospitaliston 04-17-2024 H&P Exam - Hospitalist [facility] Medical Records Department [address] [place] [address] H P Exam - Hospitalist 04/17/24 0728 MR#: [id number] Acct: [id number] Name: KRISH PERALTA Rep #: [id number] : 1940 83 From: Tacos Bender DO PCP: Dr. Kaleb Mace Sr., DO Status:ADM IN Location: [facility] [id number] HPI - General General Date of Admission: 04/17/24 Date of Service: 04/17/24 Chief Complaint: Worsening shortness of breath with cough HPI Narrative KRISH PERALTA, is a 83 F who presented to [facility] ED on 04/17/2024 from senior care for worsening shortness of breath with cough. Has known history of COPD but does not wear oxygen at baseline. Staff at senior care noted that patient had worsening cough and [...] somewhat confused. She knew she was at [facility] but could not tell me month or year. She was mildly agitated and appeared upset that she needed to be admitted to the hospital. She denied any shortness of breath currently on supplemental oxygen. Denied any fevers or chills. No other acute concerns this time. [facility] Medical History Hypothyroidism, unspecified Other intervertebral [...] Breath Labore (more content not included)... Normal [facility] M100.678on 04-17-2024 M100.678 Pending SARS-CoV-2 (COVID 19) Negative INFLUENZA A Negative INFLUENZA B Negative RSV PCR Negative Normal [facility] Comment on above: Performed By: #### L 100.0500, L500.2500 #### [facility] [address] [place], [place], [address] Magnesiumon 04-17-2024 Magnesium [Mass/Vol] 1.7 mg/dL Normal 1.6-2.6 [facility] Comment on above: Result Comment: Slig ht Hemolysis, Result may be falsely increased. Performed By: #### L 400.0001, M100.2200 #### [facility] [address] [place], [address] Procalcitoninon 04-17-2024 Procalcitonin 0.16 ng/mL High 0.00-0.09 [facility] Comment on above: Result Comment: A procalcitonin [...] ng/mL are obtained. Performed By: #### L 100.0500, L500.2500 #### [facility] [address] [place], [address] RESPIRATORY PANEL MOLECULARo n 04-17-2024 RP PANEL [...] RSV B Not Detected INFLUENZAE A Normal [facility] Comment on above: Performed By: #### L 100.0500, L500.2500 #### [facility] [address] [place], [address] Urinalysis, Routine (Dipstic k)on 04-17-2024 BILIRUBIN URINE Negative Normal Negative [facility] Comment on above: Order Comment: BLADD ER TAP Performed By: #### L 100.0500, L500.2500 #### [facility] [address] [place], [address] Clarity (U) Cloudy Normal Clear [facility] Comment on above: Order Comment: BLADD ER TAP Performed By: #### L 100.0500, L500.2500 #### [facility] [address] [place], [address] Color (U) Yellow Normal Yellow [facility] Comment on above: Order Comment: BLADD ER TAP Performed By: #### L 100.0500, L500.2500 #### [facility] [address] [place], [address] GLUCOSE, UR Normal Normal Normal [facility] Comment on above: Order Comment: BLADD ER TAP Performed By: #### L 100.0500, L500.2500 #### [facility] [address] [place], [address] KETONE UR Negative Normal Negative [facility] Comment on above: Order Comment: BLADD ER TAP Performed By: #### L 100.0500, L500.2500 #### [facility] [address] [place], [address] LEUK ESTERASE 100 /ul Abnormal Negative [facility] Comment on above: Order Comment: BLADD ER TAP Performed By: #### L 100.0500, L500.2500 #### [facility] [address] [place], [address] Nitrite Ql (U) Positive Abnormal Negative [facility] Comment on above: Order Comment: BLADD ER TAP Performed By: #### L 100.0500, L500.2500 #### [facility] [address] [place], [address] OCCULT BLOOD-UR 10 /ul Abnormal Negative [facility] Comment on above: Order Comment: BLADD ER TAP Performed By: #### L 100.0500, L500.2500 #### [facility] [address] [place], [address] pH UR 8.0 Normal 5.0 - 8.0 [facility] Comment on above: Order Comment: BLADD ER TAP Performed By: #### L 100.0500, L500.2500 #### [facility] [address] [place], [address] PROT DIPSTX 30 mg/dl Abnormal Negative [facility] Comment on above: Order Comment: BLADD ER TAP Performed By: #### L 100.0500, L500.2500 #### [facility] [address] [place], [address] SP.GR. DIPSTX 1.010 Normal 1.002-1.030 [facility] Comment on above: Order Comment: BLADD ER TAP Performed By: #### L 100.0500, L500.2500 #### [facility] [address] [place], [address] UROBILI 1 mg/dl Abnormal Normal [facility] Comment on above: Order Comment: BLADD ER TAP Performed By: #### L 100.0500, L500.2500 #### [facility] [address] [place], [address] Basic Metabolic Profile (BMP )on 03-11-2024 BUN/CRE 18.8 RATIO Normal 10-20 [facility] Comment on above: Order Comment: 103.1 Performed By: #### L 500.2500 #### [facility] [address] [place], [address] CA,Total 9.9 mg/dL Normal 8.5-10.1 [facility] Comment on above: Order Comment: 103.1 Performed By: #### L 500.2500 #### [facility] [address] [place], [address] Chloride [Moles/Vol] 99 mmol/L Normal 98-107 [facility] Comment on above: Order Comment: 103.1 Performed By: #### L 500.2500 #### [facility] [address] [place], [address] CO2 [Moles/Vol] 32.0 mmol/L Normal 21.0-32.0 [facility] Comment on above: Order Comment: 103.1 Performed By: #### L 500.2500 #### [facility] [address] [place], [address] Creatinine [Mass/Vol] 0.85 mg/dL Normal 0.55-1.02 [facility] Comment on above: Order Comment: 103.1 Result Comment: The validity of the calculated GFR GFRAA in patients over 70 years has not been determined. Clinical correlation is essential. Performed By: #### L 500.2500 #### [facility] [address] [place], [address] EST GFR - AA 82 mL/min Normal >60 [facility] Comment on above: Order Comment: 103.1 Result Comment: Afri can Kazakh GFR Calc Performed By: #### L 500.2500 #### [facility] [address], [address] GAP 5 Normal 5-15 [facility] Comment on above: Order Comment: 103.1 Performed By: #### L 500.2500 #### [facility] [address] [place], [address] GFR/1.73 sq M.predicted among non-blacks MDRD (S/P/Bld) [Vol rate/Area] 68 mL/min/{1.73_m2} Normal >60 [facility] Comment on above: Order Comment: 103.1 Result Comment: Non- GFR Calc Performed By: #### L 500.2500 #### [facility] [address] [place], [address] Glucose [Mass/Vol] 89 mg/dL Normal 74-106 [facility] Comment on above: Order Comment: 103.1 Performed By: #### L 500.2500 #### [facility] [address] [place], [address] Potassium [Moles/Vol] 3.8 mmol/L Normal 3.5-5.1 [facility] Comment on above: Order Comment: 103.1 Performed By: #### L 500.2500 #### [facility] [address] [place], [address] Sodium [Moles/Vol] 136 mmol/L Normal 136-145 [facility] Comment on above: Order Comment: 103.1 Performed By: #### L 500.2500 #### [facility] [address] [place], [address] Urea nitrogen [Mass/Vol] 16 mg/dL Normal 7-18 [facility] Comment on above: Order Comment: 103.1 Performed By: #### L 500.2500 #### [facility] [address] [place], [address] Thyroid Stim Hormone (TSH)on 02-09-2024 TSH 1.120 uIU/mL Normal 0.358-3.740 [facility] Comment on above: Order Comment: 103.1 Performed By: #### L 100.0500, L500.2500 #### [facility] [address] [place], [address] Basic Metabolic Profile (BMP )on 02-02-2024 BUN/CRE 19.2 RATIO Normal 10-20 [facility] Comment on above: Order Comment: 103.1 Performed By: #### L 100.4500, L100.0500, L500.2500 #### [facility] [address] [place], [address] CA,Total 9.4 mg/dL Normal 8.5-10.1 [facility] Comment on above: Order Comment: 103.1 Performed By: #### L 100.4500, L100.0500, L500.2500 #### [facility] [address] [place], [address] Chloride [Moles/Vol] 102 mmol/L Normal 98-107 [facility] Comment on above: Order Comment: 103.1 Performed By: #### L 100.4500, L100.0500, L500.2500 #### [facility] [address] [place], [address] CO2 [Moles/Vol] 32.0 mmol/L Normal 21.0-32.0 [facility] Comment on above: Order Comment: 103.1 Performed By: #### L 100.4500, L100.0500, L500.2500 #### [facility] [address] [place], [address] Creatinine [Mass/Vol] 0.78 mg/dL Normal 0.55-1.02 [facility] Comment on above: Order Comment: 103.1 Result Comment: The validity of the calculated GFR GFRAA in patients over 70 years has not been determined. Clinical correlation is essential. Performed By: #### L 100.4500, L100.0500, L500.2500 #### [facility] [address] [place], [address] EST GFR - AA 90 mL/min Normal >60 [facility] Comment on above: Order Comment: 103.1 Result Comment: Afri can Kazakh GFR Calc Performed By: #### L 100.4500, L100.0500, L500.2500 #### [facility] [address] [place], [address] GAP 4 Low 5-15 [facility] Comment on above: Order Comment: 103.1 Performed By: #### L 100.4500, L100.0500, L500.2500 #### [facility] [address] [place], [address] GFR/1.73 sq M.predicted among non-blacks MDRD (S/P/Bld) [Vol rate/Area] 74 mL/min/{1.73_m2} Normal >60 [facility] Comment on above: Order Comment: 103.1 Result Comment: Non- GFR Calc Performed By: #### L 100.4500, L100.0500, L500.2500 #### [facility] [address] [place], [address] Glucose [Mass/Vol] 80 mg/dL Normal 74-106 [facility] Comment on above: Order Comment: 103.1 Performed By: #### L 100.4500, L100.0500, L500.2500 #### [facility] [address] [place], [address] Potassium [Moles/Vol] 3.9 mmol/L Normal 3.5-5.1 [facility] Comment on above: Order Comment: 103.1 Performed By: #### L 100.4500, L100.0500, L500.2500 #### [facility] [address] [place], [address] Sodium [Moles/Vol] 138 mmol/L Normal 136-145 [facility] Comment on above: Order Comment: 103.1 Performed By: #### L 100.4500, L100.0500, L500.2500 #### [facility] [address] [place], [address] Urea nitrogen [Mass/Vol] 15 mg/dL Normal 7-18 [facility] Comment on above: Order Comment: 103.1 Performed By: #### L 100.4500, L100.0500, L500.2500 #### [facility] [address] [place], [address] CBC-Complete Blood Cnt No Di ffon 02-02-2024 Erythrocyte distribution width (RBC) [Ratio] 13.9 % Normal 11.6-14.6 [facility] Comment on above: Performed By: #### L 100.4500, L100.0500, L500.2500 #### [facility] [address] [place], [address] Hematocrit (Bld) [Volume fraction] 37.2 % Normal 37-47 [facility] Comment on above: Performed By: #### L 100.4500, L100.0500, L500.2500 #### [facility] [address] [place], [address] Hemoglobin (Bld) [Mass/Vol] 12.1 g/dL Normal 12.0-15.0 [facility] Comment on above: Performed By: #### L 100.4500, L100.0500, L500.2500 #### [facility] [address] [place], [address] MCH (RBC) [Entitic mass] 28.2 pg Normal 27.0-32.0 [facility] Comment on above: Performed By: #### L 100.4500, L100.0500, L500.2500 #### [facility] [address] [place], [address] MCHC (RBC) [Mass/Vol] 32.5 g/dL Normal 32-36 [facility] Comment on above: Performed By: #### L 100.4500, L100.0500, L500.2500 #### [facility] [address] [place], [address] MCV (RBC) [Entitic vol] 86.7 fL Normal 81-99 [facility] Comment on above: Performed By: #### L 100.4500, L100.0500, L500.2500 #### [facility] [address] [place], [address] Platelet mean volume (Bld) [Entitic vol] 10.3 fL Normal 6.2-12.0 [facility] Comment on above: Performed By: #### L 100.4500, L100.0500, L500.2500 #### [facility] [address] [place], [address] Platelets (Bld) [#/Vol] 87 10*3/uL Low 150-450 [facility] Comment on above: Performed By: #### L 100.4500, L100.0500, L500.2500 #### [facility] [address] [place], [address] RBC (Bld) [#/Vol] 4.29 10*6/uL Normal 4.2-5.4 [facility] Comment on above: Performed By: #### L 100.4500, L100.0500, L500.2500 #### [facility] [address] [place], [address] RDW SD 44.1 fl High 35.1-43.9 [facility] Comment on above: Performed By: #### L 100.4500, L100.0500, L500.2500 #### [facility] [address] [place], [address] WBC (Bld) [#/Vol] 4.7 10*3/uL Normal 4.4-11.0 [facility] Comment on above: Performed By: #### L 100.4500, L100.0500, L500.2500 #### [facility] [address] [place], [address] Differential Commenton 02-01 SMEAR COMMENT Normal [facility] Comment on above: Result Comment: NORM ACYTIC NORMACHROMIC MODERATELY DECREASED PLATELETS Performed By: #### L 100.4500, L100.0500, L500.2500 #### [facility] [address] [place], [address] Urine Cultureon 01-15-2024 URC Klebsiella pneumonia e sp pneum [place] Count >100,000 Klebsiella pneumoniae sp pneum: REACTION [...] TMP SMX Islt GERMAN <=20 S Normal [facility] Comment on above: Performed By: #### L 400.0001, M100.2200 #### [facility] [address] [place], [address] Urinalysis, Completeon 01-12 BACTERIA 2+ /hpf Normal None Seen [facility] Comment on above: Order Comment: CLEAN CATCH Performed By: #### L 400.0001, M100.2200 #### [facility] [address] [place], [address] EPI,SQUAMOUS 0-5 SEEN Normal 5-10 [facility] Comment on above: Order Comment: CLEAN CATCH Performed By: #### L 400.0001, M100.2200 #### [facility] [address] [place], [address] RBC 0-5 SEEN Normal 0-5 [facility] Comment on above: Order Comment: CLEAN CATCH Performed By: #### L 400.0001, M100.2200 #### [facility] [address] [place], [address] WBC >100 SEEN Normal 0-5 [facility] Comment on above: Order Comment: CLEAN CATCH Performed By: #### L 400.0001, M100.2200 #### [facility] [address] [place], [address] Mucus Ql (Urine sed) 0 SEEN Normal [facility] Comment on above: Order Comment: CLEAN CATCH Performed By: #### L 400.0001, M100.2200 #### [facility] [address] [place], [address] Urine Cultureon 01-04-2024 URC Klebsiella pneumonia e sp pneum [place] Count >100,000 Klebsiella pneumoniae sp pneum: REACTION [...] TMP SMX Islt GERMAN <=20 S Normal [facility] Comment on above: Performed By: #### L 400.0001, M100.0 #### [facility] [address] [place], [address] Urinalysis, Completeon 01-01 EPI,SQUAMOUS 0-5 SEEN Normal 5-10 [facility] Comment on above: Order Comment: CLEAN CATCH Performed By: #### L 400.0001, M100.0 #### [facility] [address] [place], [address] BACTERIA 2+ /hpf Normal None Seen [facility] Comment on above: Order Comment: CLEAN CATCH Performed By: #### L 400.0001, M100.0 #### [facility] [address] [place], [address] EPI,TRANSITION 0-5 SEEN Normal 0-5 [facility] Comment on above: Order Comment: CLEAN CATCH Performed By: #### L 400.0001, M100.0 #### [facility] [address] [place], [address] WBC 50-100 SEEN Normal 0-5 [facility] Comment on above: Order Comment: CLEAN CATCH Performed By: #### L 400.0001, M100.0 #### [facility] [address] [place], [address] Mucus Ql (Urine sed) 0 SEEN Normal [facility] Comment on above: Order Comment: CLEAN CATCH Performed By: #### L 400.0001, M100.220 #### [facility] [address] [place], [address] RBC 0 SEEN Normal 0-5 [facility] Comment on above: Order Comment: CLEAN CATCH Performed By: #### L 400.0001, #### [facility] [address] [place], [address] Thyroid Stim Hormone (TSH)on 12-29-2023 TSH 0.328 uIU/mL Low 0.358-3.740 [facility] Comment on above: Order Comment: 103.1 Performed By: #### L 501.9520 #### [facility] [address] [place], [address] CBC-Complete Blood Cnt No Di ffon 11-17-2023 Erythrocyte distribution width (RBC) [Ratio] 18.2 % High 11.6-14.6 [facility] Comment on above: Order Comment: 103-1 Performed By: #### L 400.0001, #### [facility] [address] [place], [address] Hematocrit (Bld) [Volume fraction] 37.9 % Normal 37-47 [facility] Comment on above: Order Comment: 103-1 Performed By: #### L 400.0001, #### [facility] [address] [place], [address] Hemoglobin (Bld) [Mass/Vol] 12.2 g/dL Normal 12.0-15.0 [facility] Comment on above: Order Comment: 103-1 Performed By: #### L 400.0001, #### [facility] [address] [place], [address] MCH (RBC) [Entitic mass] 28.1 pg Normal 27.0-32.0 [facility] Comment on above: Order Comment: 103-1 Performed By: #### L 400.0001, #### [facility] [address] [place], [address] MCHC (RBC) [Mass/Vol] 32.2 g/dL Normal 32-36 [facility] Comment on above: Order Comment: 103-1 Performed By: #### L 400.0001, M1.0 #### [facility] [address] [place], [address] MCV (RBC) [Entitic vol] 87.3 fL Normal 81-99 [facility] Comment on above: Order Comment: 103-1 Performed By: #### L 400.0001, .2199 #### [facility] [address] [place], [address] Platelet mean volume (Bld) [Entitic vol] 10.6 fL Normal 6.2-12.0 [facility] Comment on above: Order Comment: 103-1 Performed By: #### L 400.0001, .2199 #### [facility] [address] [place], [address] Platelets (Bld) [#/Vol] 112 10*3/uL Low 150-450 [facility] Comment on above: Order Comment: 103-1 Performed By: #### L 400.0001, #### [facility] [address] [place], [address] RBC (Bld) [#/Vol] 4.34 10*6/uL Normal 4.2-5.4 [facility] Comment on above: Order Comment: 103-1 Performed By: #### L 400.0001, .2199 #### [facility] [address] [place], [address] RDW SD 58.2 fl High 35.1-43.9 [facility] Comment on above: Order Comment: 103-1 Performed By: #### L 400.0001, .2199 #### [facility] [address] [place], [address] WBC (Bld) [#/Vol] 6.8 10*3/uL Normal 4.4-11.0 [facility] Comment on above: Order Comment: 103-1 Performed By: #### L 400.0001, M1.2199 #### [facility] [address] [place], [address] Comprehensive Metabolic Prof ilon 11-17-2023 Albumin [Mass/Vol] 3.0 g/dL Low 3.2-5.0 [facility] Comment on above: Order Comment: 103-1 Performed By: #### L 400.0001, .2199 #### [facility] [address] [place], [address] Albumin/Globulin [Mass ratio] 0.8 {ratio} Low 0.9-2.4 [facility] Comment on above: Order Comment: 103-1 Performed By: #### L 400.0001, #### [facility] [address] [place], [address] ALK P 117 U/L Normal 45-117 [facility] Comment on above: Order Comment: 103-1 Performed By: #### L 400.0001, #### [facility] [address] [place], [address] ALT [Catalytic activity/Vol] 19 U/L Normal 13-56 [facility] Comment on above: Order Comment: 103-1 Performed By: #### L 400.0001, M1.2199 #### [facility] [address] [place], [address] AST [Catalytic activity/Vol] 21 U/L Normal 15-37 [facility] Comment on above: Order Comment: 103-1 Performed By: #### L 400.0001, M1.2199 #### [facility] [address] [place], [address] Bilirubin [Mass/Vol] 0.50 mg/dL Normal 0.20-1.00 [facility] Comment on above: Order Comment: 103- Result Comment: For patients on eltrombopag therapy, use of Dimension Triangle TBIL is not recommended. Performed By: #### L 400.0001, M100.0 #### [facility] [address] [place], [address] BUN/CRE 16.9 RATIO Normal 10-20 [facility] Comment on above: Order Comment: 103-1 Performed By: #### L 400.0001, M1.0 #### [facility] [address] [place], [address] CA,Total 9.9 mg/dL Normal 8.5-10.1 [facility] Comment on above: Order Comment: 103-1 Performed By: #### L 400.0001, M1.0 #### [facility] [address] [place], [address] Chloride [Moles/Vol] 99 mmol/L Normal 98-107 [facility] Comment on above: Order Comment: 103-1 Performed By: #### L 400.0001, M100.0 #### [facility] [address] [place], [address] CO2 [Moles/Vol] 32.0 mmol/L Normal 21.0-32.0 [facility] Comment on above: Order Comment: 103-1 Performed By: #### L 400.0001, M100.0 #### [facility] [address] [place], [address] Creatinine [Mass/Vol] 0.89 mg/dL Normal 0.55-1.02 [facility] Comment on above: Order Comment: 103-1 Result Comment: The validity of the calculated GFR GFRAA in patients over 70 years has not been determined. Clinical correlation is essential. Performed By: #### L 400.0001, M100.2200 #### [facility] [address] [place], [address] EST GFR - AA 78 mL/min Normal >60 [facility] Comment on above: Order Comment: Result Comment: Afri can [place] GFR Calc Performed By: #### L 400.0001, #### [facility] [address] [place], [address] GAP 5 Normal 5-15 [facility] Comment on above: Order Comment: Performed By: #### L 400.0001, #### [facility] [address] [place], [address] GFR/1.73 sq M.predicted among non-blacks MDRD (S/P/Bld) [Vol rate/Area] 64 mL/min/{1.73_m2} Normal >60 [facility] Comment on above: Order Comment: Result Comment: Non- GFR Calc Performed By: #### L 400.0001, #### [facility] [address] [place], [address] Globulin (S) [Mass/Vol] 3.7 g/dL Normal 2.2-4.2 [facility] Comment on above: Order Comment: Performed By: #### L 400.0001, #### [facility] [address] [place], [address] Glucose [Mass/Vol] 107 mg/dL High 74-106 [facility] Comment on above: Order Comment: Result Comment: Fast ing Glucose result from 100 to 125 mg/dL suggests IMPAIRED HOMEOSTASIS per A.D.A. criteria. Performed By: #### L 400.0001, #### [facility] [address] [place], [address] Potassium [Moles/Vol] 3.8 mmol/L Normal 3.5-5.1 [facility] Comment on above: Order Comment: 103-1 Performed By: #### L 400.0001, M1.2199 #### [facility] [address] [place], [address] Sodium [Moles/Vol] 136 mmol/L Normal 136-145 [facility] Comment on above: Order Comment: 103-1 Performed By: #### L 400.0001, .2199 #### [facility] [address] [place], [address] T PROT 6.7 g/dL Normal 6.4-8.2 [facility] Comment on above: Order Comment: 103-1 Performed By: #### L 400.0001, #### [facility] [address] [place], [address] Urea nitrogen [Mass/Vol] 15 mg/dL Normal 7-18 [facility] Comment on above: Order Comment: 103-1 Performed By: #### L 400.0001, #### [facility] [address] [place], [address] Thyroid Stim Hormone (TSH)on 11-17-2023 TSH 4.030 uIU/mL High 0.358-3.740 [facility] Comment on above: Order Comment: 103-1 Performed By: #### L 400.0001, #### [facility] [address] [place], [address] CASE MANAGEMon 10-24-2023 CASE MANAGEM Normal [facility] CASE MANAGEM Normal [facility] CASE MANAGEM [facility] CBC panel Auto (Bld)on 10-23 Erythrocyte distribution width (RBC) [Ratio] 16.3 % High 11.5-15.0 [facility] Comment on above: Order Comment: Speci men Type: BLOOD SPECIMENOrdering Facility: [facility] Address: [address] [place] [address] Performed By: #### 5 8410-2 ####[facility] LABORATORYCLIA [id number] [address] [place] Hematocrit (Bld) [Volume fraction] 35.6 % Low 36.0-46.0 [facility] Comment on above: Order Comment: Speci men Type: BLOOD SPECIMENOrdering Facility: [facility] Address: [address] [place] [address] Performed By: #### 5 8410-2 ####[facility] LABORATORYCLIA [id number] [address] [place] Hemoglobin (Bld) [Mass/Vol] 11.6 g/dL Normal 11.5-15.5 [facility] Comment on above: Order Comment: Speci men Type: BLOOD SPECIMENOrdering Facility: [facility] Address: [address] [place] [address] Performed By: #### 5 8410-2 ####[facility] LABORATORYCLIA [id number] [address] [place] MCH (RBC) [Entitic mass] 27.7 pg Normal 26.0-34.0 [facility] Comment on above: Order Comment: Speci men Type: BLOOD SPECIMENOrdering Facility: [facility] Address: [address] [place] [address] [place] [address] Performed By: #### 5 8410-2 ####[facility] LABORATORYCLIA [id number] [address] [place] MCHC (RBC) [Mass/Vol] 32.6 g/dL Normal 30.5-36.0 [facility] Comment on above: Order Comment: Speci men Type: BLOOD SPECIMENOrdering Facility: [facility] Address: [address] [place] [address] [place] [address] Performed By: #### 5 8410-2 ####[facility] LABORATORYCLIA [id number] [address] [place] MCV (RBC) [Entitic vol] 85.0 fL Normal 80.0-100.[address] [facility] Comment on above: Order Comment: Speci men Type: BLOOD SPECIMENOrdering Facility: [facility] Address: [address] [place] [address] Performed By: #### 5 8410-2 ####[facility] LABORATORYCLIA [id number] [place] [address] [place] Nucleated RBC (Bld) [#/Vol] 10*3/uL Normal <0.01 [facility] Comment on above: Order Comment: Speci men Type: BLOOD SPECIMENOrdering Facility: [facility] Address: [address] [place] [address] Performed By: #### 5 8410-2 ####[facility] LABORATORYCLIA [id number] [place] [address] [place] Platelet mean volume (Bld) [Entitic vol] 9.3 fL Normal 9.0-12.7 [facility] Comment on above: Order Comment: Speci men Type: BLOOD SPECIMENOrdering Facility: [facility] Address: [address] [place] [address] Performed By: #### 5 8410-2 ####[facility] LABORATORYCLIA [id number] [place] [address] [place] Platelets (Bld) [#/Vol] 102 10*3/uL Low 150-400 [facility] Comment on above: Order Comment: Speci men Type: BLOOD SPECIMENOrdering Facility: [facility] Address: [address] [place] [address] Performed By: #### 5 8410-2 ####[facility] LABORATORYCLIA [id number] [place] [address] [place] RBC (Bld) [#/Vol] 4.19 10*6/uL Normal 3.90-5.20 [facility] Comment on above: Order Comment: Speci men Type: BLOOD SPECIMENOrdering Facility: [facility] Address: [address] [place] [address] Performed By: #### 5 8410-2 ####[facility] LABORATORYCLIA [id number] [place] [address] [place] WBC (Bld) [#/Vol] 5.62 10*3/uL Normal 3.70-11.00 [facility] Comment on above: Order Comment: Speci men Type: BLOOD SPECIMENOrdering Facility: [facility] Address: [address] [place] [address] Performed By: #### 5 8410-2 ####[facility] LABORATORYCLIA [id number] [place] [id number] [place] CNDSon 10-24-2023 CNDS Normal [facility] Comprehensive metabolic 2000 panelon 10-24-2023 Albumin [Mass/Vol] 2.8 g/dL Low 3.2-5.0 [facility] Comment on above: Order Comment: Speci men Type: BLOOD SPECIMENOrdering Facility: [facility] Address: [address] [place] [address] Performed By: #### 2 4323-8 ####[facility] LABORATORYCLIA [id number] [address] [place] ALP [Catalytic activity/Vol] 77 U/L Normal 45-117 [facility] Comment on above: Order Comment: Speci men Type: BLOOD SPECIMENOrdering Facility: [facility] Address: [address] [place] [address] Performed By: #### 2 4323-8 ####[facility] LABORATORYCLIA [id number] [address] [place] ALT [Catalytic activity/Vol] 15 U/L Normal 13-61 [facility] Comment on above: Order Comment: Speci men Type: BLOOD SPECIMENOrdering Facility: [facility] Address: [address] [place] [address] Result Comment: Resu lts may be falsely depressed after the administration of Sulfasalazine and/or Sulfapyridine. Performed By: #### 2 4323-8 ####[facility] LABORATORYCLIA [id number] [place] [address] [place] Anion gap [Moles/Vol] 5 mmol/L Normal 5-16 [facility] Comment on above: Order Comment: Speci men Type: BLOOD SPECIMENOrdering Facility: [facility] Address: [address] [place] [address] Performed By: #### 2 4323-8 ####[facility] LABORATORYCLIA [id number] [place] [address] [place] AST [Catalytic activity/Vol] 23 U/L Normal 8-34 [facility] Comment on above: Order Comment: Speci men Type: BLOOD SPECIMENOrdering Facility: [facility] Address: [address] [place] [address] Result Comment: Resu lts may be falsely depressed after the administration of Sulfasalazine and/or Sulfapyridine. Performed By: #### 2 4323-8 ####[facility] LABORATORYCLIA [id number] [place] [address] [place] Bilirubin [Mass/Vol] 0.6 mg/dL Normal 0.2-1.0 [facility] Comment on above: Order Comment: Speci men Type: BLOOD SPECIMENOrdering Facility: [facility] Address: [address] [place] [address] Performed By: #### 2 4323-8 ####[facility] LABORATORYCLIA [id number] [place] [address] [place] Calcium [Mass/Vol] 10.0 mg/dL Normal 8.5-10.5 [facility] Comment on above: Order Comment: Speci men Type: BLOOD SPECIMENOrdering Facility: [facility] Address: [address] [place] [address] Performed By: #### 2 4323-8 ####[facility] LABORATORYCLIA [id number] [place] [address] [place] Chloride [Moles/Vol] 106 mmol/L Normal 98-107 [facility] Comment on above: Order Comment: Speci men Type: BLOOD SPECIMENOrdering Facility: [facility] Address: [address] [place], [place] [address] Performed By: #### 2 4323-8 ####[facility] LABORATORYCLIA [id number] [place] [id number] [place] CO2 [Moles/Vol] 25 mmol/L Normal 21-32 [facility] Comment on above: Order Comment: Speci men Type: BLOOD SPECIMENOrdering Facility: [facility] Address: [address] [place] [address] Performed By: #### 2 4323-8 ####[facility] LABORATORYCLIA [id number] [place] [address] [place] Creatinine [Mass/Vol] 0.70 mg/dL Normal 0.51-0.95 [facility] Comment on above: Order Comment: Speci men Type: BLOOD SPECIMENOrdering Facility: [facility] Address: [address] [place] [address] Result Comment: Linn ents receiving either N-Acetylcysteine (NAC) or Metamizole prior to venipuncture, may have falsely depressed results. Performed By: #### 2 4323-8 ####[facility] LABORATORYCLIA [id number] [address] [place] [facility] Creatinine and Glomerular filtration rate.predicted panel (S/P/Bld) 85 mL/min/1.73m??? Normal >=60 [facility] Comment on above: Order Comment: Speci men Type: BLOOD SPECIMENOrdering Facility: [facility] Address: [address] [place] [address] Result Comment: Esme mated Glomerular Filtration Rate [...] actual GFR. Performed By: #### 2 4323-8 ####[facility] LABORATORYCLIA [id number] [place] [id number] [place] Glucose [Mass/Vol] 71 mg/dL Normal 70-100 [facility] Comment on above: Order Comment: Brady smith Type: BLOOD SPECIMENOrdering Facility: [facility] Address: [address] [place] [address] Result Comment: The [place] Diabetes Association (ADA) provides guidance for cutoff [...] Standards of Medical Care in Diabetes 2016, [place] Diabetes Association. Diabetes Care. 2016.39(Suppl 1).Results may be falsely elevated after the administration of Sulfapyridine.Results may be falsely depressed after the administration of Sulfasalazine. Performed By: #### 2 4323-8 ####[facility] LABORATORYCLIA [id number] [place] [address] [place] Potassium [Moles/Vol] 4.5 mmol/L Normal 3.5-5.1 [facility] Comment on above: Order Comment: Brady smith Type: BLOOD SPECIMENOrdering Facility: [facility] Address: [address] [place], [place] [address] Performed By: #### 2 4323-8 ####[facility] LABORATORYCLIA [id number] [place] [address] [place] Protein [Mass/Vol] 5.8 g/dL Low 6.0-8.5 [facility] Comment on above: Order Comment: Brady smith Type: BLOOD SPECIMENOrdering Facility: [facility] Address: [address] [place] [id number] Performed By: #### 2 4323-8 ####[facility] LABORATORYCLIA [id number] [place] [address] [place] Sodium [Moles/Vol] 136 mmol/L Normal 136-145 [facility] Comment on above: Order Comment: Speci men Type: BLOOD SPECIMENOrdering Facility: [facility] Address: [address] [place] [address] Performed By: #### 2 4323-8 ####[facility] LABORATORYCLIA [id number] [place] [address] [place] [facility] Urea nitrogen [Mass/Vol] 8 mg/dL Normal 7- [facility] Comment on above: Order Comment: Speci men Type: BLOOD SPECIMENOrdering Facility: [facility] Address: [address] [place] [address] [place] [address] Performed By: #### 2 4323-8 ####[facility] LABORATORYCLIA [id number] [place] [id number] [place] [facility] THERAPY NTon 10-24-2023 THERAPY NT Normal [facility] ALLIED HEALTHon 10-23-2023 [facility]ALTH [facility] AST SerPl-cCncon 10-23-2023 AST [Catalytic activity/Vol] 21 U/L Normal - [facility] Comment on above: Order Comment: Speci men Type: BLOOD SPECIMENOrdering Facility: [facility] Address: [address] [place] [address] Result Comment: Resu lts may be falsely depressed after the administration of Sulfasalazine and/or Sulfapyridine. Performed By: #### 1 920-8, 65989-2, 2156-08 ####[facility] LABORATORYCLIA [id number] [place] [id number] [place] Basic metabolic 2000 panelon 10-23-2023 Anion gap [Moles/Vol] 5 mmol/L Normal 5-16 [facility] Comment on above: Order Comment: Speci men Type: BLOOD SPECIMENOrdering Facility: [facility] Address: [address] [place] [address] [place] [id number] Performed By: #### 1 920-8, 63435-4, 2156-08 ####[facility] LABORATORYCLIA [id number] [place] [id number] [place] Calcium [Mass/Vol] 10.0 mg/dL Normal 8.5-10.5 [facility] Comment on above: Order Comment: Speci men Type: BLOOD SPECIMENOrdering Facility: [facility] Address: [address] [place] [address] Performed By: #### 1 920-8, 51512-7, 2156-08 ####[facility] LABORATORYCLIA [id number] [place] [id number] [place] Chloride [Moles/Vol] 105 mmol/L Normal 98-107 [facility] Comment on above: Order Comment: Speci men Type: BLOOD SPECIMENOrdering Facility: [facility] Address: [address] [place] [address] Performed By: #### 1 920-8, , 2156-08 ####[facility] LABORATORYCLIA [id number] [place] [address] [place] CO2 [Moles/Vol] 24 mmol/L Normal 21-32 [facility] Comment on above: Order Comment: Speci men Type: BLOOD SPECIMENOrdering Facility: [facility] Address: [address] [place] [address] Performed By: #### 1 920-8, , 2156-08 ####[facility] LABORATORYCLIA [id number] [place] [id number] [place] Creatinine [Mass/Vol] 0.74 mg/dL Normal 0.51-0.95 [facility] Comment on above: Order Comment: Speci men Type: BLOOD SPECIMENOrdering Facility: [facility] Address: [address] [place], [place] [id number] Result Comment: Linn ents receiving either N-Acetylcysteine (NAC) or Metamizole prior to venipuncture, may have falsely depressed results. Performed By: #### 1 920-8, 38613-7, 2156-08 ####[facility] LABORATORYCLIA [id number] [place] [id number] [place] Creatinine and Glomerular filtration rate.predicted panel (S/P/Bld) 80 mL/min/1.73m??? Normal >=60 [facility] Comment on above: Order Comment: Brady smith Type: BLOOD SPECIMENOrdering Facility: [facility] Address: [address] [place] [address] Result Comment: Esme mated Glomerular Filtration Rate [...] actual GFR. Performed By: #### 1 920-8, 67018-1, 2156-08 ####[facility] LABORATORYCLIA [id number] [place] [address] [place] Glucose [Mass/Vol] 71 mg/dL Normal 70-100 [facility] Comment on above: Order Comment: Brady smith Type: BLOOD SPECIMENOrdering Facility: [facility] Address: [address] [place] [address] Result Comment: The [place] Diabetes Association (ADA) provides guidance for cutoff [...] Standards of Medical Care in Diabetes 2016, [place] [employer]. Diabetes Care. 2016.39(Suppl 1).Results may be falsely elevated after the administration of Sulfapyridine.Results may be falsely depressed after the administration of Sulfasalazine. Performed By: #### 1 920-8, 57734-1, 2156-08 ####[facility] LABORATORYCLIA [id number] [place] [id number] [place] Potassium [Moles/Vol] 3.9 mmol/L Normal 3.5-5.1 [facility] Comment on above: Order Comment: Speci men Type: BLOOD SPECIMENOrdering Facility: [facility] Address: [facility] [place] [id number] Performed By: #### 1 920-8, 44704-3, 2156-08 ####[facility] LABORATORYCLIA [id number] [place] [id number] [place] Sodium [Moles/Vol] 134 mmol/L Low 136-145 [facility] Comment on above: Order Comment: Speci men Type: BLOOD SPECIMENOrdering Facility: [facility] Address: [address] [place] [address] Performed By: #### 1 920-8, 89540-3, 2156-08 ####[facility] LABORATORYCLIA [id number] [address] [place] Urea nitrogen [Mass/Vol] 9 mg/dL Normal 7-26 [facility] Comment on above: Order Comment: Speci men Type: BLOOD SPECIMENOrdering Facility: [facility] Address: [facility] [place] [id number] Performed By: #### 1 920-8, 95008-4, 2156-08 ####[facility] LABORATORYCLIA [id number] [place] [id number] [facility] [place] CASE MANAGEMon 10-23-2023 CASE MANAGEM Normal [facility] CBC panel Auto (Bld)on 10-22 Erythrocyte distribution width (RBC) [Ratio] 16.4 % High 11.5-15.0 [facility] Comment on above: Order Comment: Speci men Type: BLOOD SPECIMENOrdering Facility: [facility] Address: [address] [place] [address] [place] [address] Performed By: #### 5 8410-2 ####[facility] LABORATORYCLIA [id number] [place] [address] [place] Hematocrit (Bld) [Volume fraction] 36.8 % Normal 36.0-46.0 [facility] Comment on above: Order Comment: Speci men Type: BLOOD SPECIMENOrdering Facility: [facility] Address: [address] [place] [address] Performed By: #### 5 8410-2 ####[facility] LABORATORYCLIA [id number] [place] [id number] [place] Hemoglobin (Bld) [Mass/Vol] 11.7 g/dL Normal 11.5-15.5 [facility] Comment on above: Order Comment: Speci men Type: BLOOD SPECIMENOrdering Facility: [facility] Address: [address] [place] [address] Performed By: #### 5 8410-2 ####[facility] LABORATORYCLIA [id number] [place] [address] [place] MCH (RBC) [Entitic mass] 27.4 pg Normal 26.0-34.0 [facility] Comment on above: Order Comment: Speci men Type: BLOOD SPECIMENOrdering Facility: [facility] Address: [address] [place] [address] Performed By: #### 5 8410-2 ####[facility] LABORATORYCLIA [id number] [address] [place] MCHC (RBC) [Mass/Vol] 31.8 g/dL Normal 30.5-36.0 [facility] Comment on above: Order Comment: Speci men Type: BLOOD SPECIMENOrdering Facility: [facility] Address: [address] [place] [address] Performed By: #### 5 8410-2 ####[facility] LABORATORYCLIA [id number] [address] [place] MCV (RBC) [Entitic vol] 86.2 fL Normal 80.0-100.[address] [facility] Comment on above: Order Comment: Speci men Type: BLOOD SPECIMENOrdering Facility: [facility] Address: [address] [place] [address] Performed By: #### 5 8410-2 ####[facility] LABORATORYCLIA [id number] [place] [address] [place] Nucleated RBC (Bld) [#/Vol] 10*3/uL Normal <0.01 [facility] Comment on above: Order Comment: Speci men Type: BLOOD SPECIMENOrdering Facility: [facility] Address: [address] [place] [address] Performed By: #### 5 8410-2 ####[facility] LABORATORYCLIA [id number] [place] [address] [place] Platelet mean volume (Bld) [Entitic vol] 9.2 fL Normal 9.0-12.7 [facility] Comment on above: Order Comment: Speci men Type: BLOOD SPECIMENOrdering Facility: [facility] Address: [address] [place] [address] Performed By: #### 5 8410-2 ####[facility] LABORATORYCLIA [id number] [place] [address] [place] Platelets (Bld) [#/Vol] 97 10*3/uL Low 150-[address] [facility] Comment on above: Order Comment: Speci men Type: BLOOD SPECIMENOrdering Facility: [facility] Address: [address] [place] [address] Performed By: #### 5 8410-2 ####[facility] LABORATORYCLIA [id number] [place] [address] [place] RBC (Bld) [#/Vol] 4.27 10*6/uL Normal 3.90-5.20 [facility] Comment on above: Order Comment: Speci men Type: BLOOD SPECIMENOrdering Facility: [facility] Address: [address] [place] [address] Performed By: #### 5 8410-2 ####[facility] LABORATORYCLIA [id number] [place] [address] [place] WBC (Bld) [#/Vol] 5.77 10*3/uL Normal 3.70-11.00 [facility] Comment on above: Order Comment: Speci men Type: BLOOD SPECIMENOrdering Facility: [facility] Address: [address] [place] [address] Performed By: #### 5 8410-2 ####[facility] LABORATORYCLIA [id number] [address] [place] Erythrocyte distribution width (RBC) [Ratio] 16.3 % High 11.5-15.0 [facility] Comment on above: Order Comment: Speci men Type: BLOOD SPECIMENOrdering Facility: [facility] Address: [address] [place] [address] Performed By: #### 5 8410-2 ####[facility] LABORATORYCLIA [id number] [address] [place] Hematocrit (Bld) [Volume fraction] 36.0 % Normal 36.0-46.0 [facility] Comment on above: Order Comment: Speci men Type: BLOOD SPECIMENOrdering Facility: [facility] Address: [address] [place] [address] Performed By: #### 5 8410-2 ####[facility] LABORATORYCLIA [id number] [address] [place] Hemoglobin (Bld) [Mass/Vol] 12.1 g/dL Normal 11.5-15.5 [facility] Comment on above: Order Comment: Speci men Type: BLOOD SPECIMENOrdering Facility: [facility] Address: [address] [place] [address] Performed By: #### 5 8410-2 ####[facility] LABORATORYCLIA [id number] [address] [place] MCH (RBC) [Entitic mass] 28.3 pg Normal 26.0-34.0 [facility] Comment on above: Order Comment: Speci men Type: BLOOD SPECIMENOrdering Facility: [facility] Address: [address] [place] [address] Performed By: #### 5 8410-2 ####[facility] LABORATORYCLIA [id number] [address] [place] MCHC (RBC) [Mass/Vol] 33.6 g/dL Normal 30.5-36.0 [facility] Comment on above: Order Comment: Speci men Type: BLOOD SPECIMENOrdering Facility: [facility] Address: [address] [place] [address] Performed By: #### 5 8410-2 ####[facility] LABORATORYCLIA [id number] [address] [place] MCV (RBC) [Entitic vol] 84.1 fL Normal 80.0-100.[address] [facility] Comment on above: Order Comment: Speci men Type: BLOOD SPECIMENOrdering Facility: [facility] Address: [address] [place] [address] Performed By: #### 5 8410-2 ####[facility] LABORATORYCLIA [id number] [address] [place] Nucleated RBC (Bld) [#/Vol] 10*3/uL Normal <0.01 [facility] Comment on above: Order Comment: Speci men Type: BLOOD SPECIMENOrdering Facility: [facility] Address: [address] [place] [address] Performed By: #### 5 8410-2 ####[facility] LABORATORYCLIA [id number] [address] [place] Platelet mean volume (Bld) [Entitic vol] 10.0 fL Normal 9.0-12.7 [facility] Comment on above: Order Comment: Speci men Type: BLOOD SPECIMENOrdering Facility: [facility] Address: [address] [place] [address] Performed By: #### 5 8410-2 ####[facility] LABORATORYCLIA [id number] [address] [place] Platelets (Bld) [#/Vol] 107 10*3/uL Low 150-400 [facility] Comment on above: Order Comment: Speci men Type: BLOOD SPECIMENOrdering Facility: [facility] Address: [address] [place] [address] Result Comment: No c lot detected. Performed By: #### 5 8410-2 ####[facility] LABORATORYCLIA [id number] [place] [address] [place] RBC (Bld) [#/Vol] 4.28 10*6/uL Normal 3.90-5.20 [facility] Comment on above: Order Comment: Speci men Type: BLOOD SPECIMENOrdering Facility: [facility] Address: [address] [place] [address] Performed By: #### 5 8410-2 ####[facility] LABORATORYCLIA [id number] [address] STATES OF [facility] WBC (Bld) [#/Vol] 6.15 10*3/uL Normal 3.70-11.00 [facility] Comment on above: Order Comment: Speci men Type: BLOOD SPECIMENOrdering Facility: [facility] Address: [address] [place] [address] Performed By: #### 5 8410-2 ####[facility] LABORATORYCLIA [id number] [address] [place] CK SerPl-cCncon 10-23-2023 CK [Catalytic activity/Vol] 88 U/L Normal 28-152 [facility] Comment on above: Order Comment: Speci men Type: BLOOD SPECIMENOrdering Facility: [facility] Address: [address] [place] [address] Performed By: #### 1 920-8, 37214-2, 2157-6 ####[facility] LABORATORYCLIA [id number] [address] CK [Catalytic activity/Vol] Normal [facility] Comment on above: Order Comment: Speci men Type: BLOOD SPECIMENOrdering Facility: [facility] Address: [address] [place] [address] Result Comment: Unab le to assay due to interference from hemolysis. Suggest reorder as clinically indicated. Performed By: #### 2 157-6, 43260-4, 40498-2 ####[facility] LABORATORYCLIA [id number] [place] [address] [place] Comprehensive metabolic 2000 panelon 10-23-2023 Albumin [Mass/Vol] 2.9 g/dL Low 3.2-5.0 [facility] Comment on above: Order Comment: Speci men Type: BLOOD SPECIMENOrdering Facility: [facility] Address: [address] [place] [address] Performed By: #### 2 157-6, 43141-6, 28287-6 ####[facility] LABORATORYCLIA [id number] [place] [id number] [place] ALP [Catalytic activity/Vol] 67 U/L Normal 45-117 [facility] Comment on above: Order Comment: Speci men Type: BLOOD SPECIMENOrdering Facility: [facility] Address: [address] [place] [address] Performed By: #### 2 157-6, 51432-1, 96606-5 ####[facility] LABORATORYCLIA [id number] [place] [id number] [facility] ALT [Catalytic activity/Vol] 13 U/L Normal 13-61 [facility] Comment on above: Order Comment: Speci men Type: BLOOD SPECIMENOrdering Facility: [facility] Address: [address] [place] [address] Result Comment: Resu lts may be falsely depressed after the administration of Sulfasalazine and/or Sulfapyridine. Performed By: #### 2 157-6, 40121-4, 35026-1 ####[facility] LABORATORYCLIA [id number] [place] [id number] [place] Anion gap [Moles/Vol] 5 mmol/L Normal 5-16 [facility] Comment on above: Order Comment: Speci men Type: BLOOD SPECIMENOrdering Facility: [facility] Address: [address] [place], [place] [address] Performed By: #### 2 157-6, 13736-5, 84509-4 ####[facility] LABORATORYCLIA [id number] [place] [id number] [place] AST [Catalytic activity/Vol] Normal [facility] Comment on above: Order Comment: Speci men Type: BLOOD SPECIMENOrdering Facility: [facility] Address: [address] [place] [address] Result Comment: Unab le to assay due to interference from hemolysis. Suggest reorder as clinically indicated.Results may be falsely depressed after the administration of Sulfasalazine and/or Sulfapyridine. Performed By: #### 2 157-6, 68172-2, 57147-3 ####[facility] LABORATORYCLIA [id number] [place] [id number] [place] Bilirubin [Mass/Vol] 0.8 mg/dL Normal 0.2-1.0 [facility] Comment on above: Order Comment: Speci men Type: BLOOD SPECIMENOrdering Facility: [facility] Address: [address] [place] [address] Performed By: #### 2 157-6, 93049-6, ####[facility] LABORATORYCLIA [id number] [place] [address] [place] Calcium [Mass/Vol] 9.9 mg/dL Normal 8.5-10.5 [facility] Comment on above: Order Comment: Speci men Type: BLOOD SPECIMENOrdering Facility: [facility] Address: [address] [place] [address] Performed By: #### 2 157-6, 75830-9, 85396-3 ####[facility] LABORATORYCLIA [id number] [place] [address] [place] Chloride [Moles/Vol] 103 mmol/L Normal 98-107 [facility] Comment on above: Order Comment: Speci men Type: BLOOD SPECIMENOrdering Facility: [facility] Address: [address] [place] [address] Performed By: #### 2 157-6, 09961-8, 86594-8 ####[facility] LABORATORYCLIA [id number] [place] [id number] [place] CO2 [Moles/Vol] 27 mmol/L Normal 21-32 [facility] Comment on above: Order Comment: Speci men Type: BLOOD SPECIMENOrdering Facility: [facility] Address: [address] [place] [address] Performed By: #### 2 157-6, 05639-8, ####[facility] LABORATORYCLIA [id number] [place] [id number] [place] Creatinine [Mass/Vol] Normal [facility] Comment on above: Order Comment: Speci men Type: BLOOD SPECIMENOrdering Facility: [facility] Address: [address] [place] [address] Result Comment: Unab le to assay due to interference from hemolysis. Suggest reorder as clinically indicated. Performed By: #### 2 157-6, 47576-1, ####[facility] LABORATORYCLIA [id number] [place] [address] [place] Creatinine and Glomerular filtration rate.predicted panel (S/P/Bld) Normal [facility] Comment on above: Order Comment: Speci men Type: BLOOD SPECIMENOrdering Facility: [facility] Address: [address] [place] [address] Result Comment: Esme mated Glomerular Filtration Rate [...] actual GFR. Performed By: #### 2 157-6, 81676-2, 64680-4 ####[facility] LABORATORYCLIA [id number] [place] [id number] [place] Glucose [Mass/Vol] 69 mg/dL Low 70-100 [facility] Comment on above: Order Comment: Speci luis Type: BLOOD SPECIMENOrdering Facility: [facility] Address: [address] [place] [address] Result Comment: The [place] [employer] (ADA) provides guidance for cutoff [...] Standards of Medical Care in Diabetes 2016, [place] [employer]. Diabetes Care. 2016.39(Suppl 1).Results may be falsely elevated after the administration of Sulfapyridine.Results may be falsely depressed after the administration of Sulfasalazine. Performed By: #### 2 157-6, 90826-3, ####[facility] LABORATORYCLIA [id number] [place] [id number] [place] Potassium [Moles/Vol] Normal [facility] Comment on above: Order Comment: Brady smith Type: BLOOD SPECIMENOrdering Facility: [facility] Address: [address] [place] [address] Result Comment: Unab le to assay due to interference from hemolysis. Suggest reorder as clinically indicated. &XA&NOTIFIED WILIAM R, HEMOLYZED K,BUN,ECREA,AST, CK Performed By: #### 2 157-6, 57529-7, ####[facility] LABORATORYCLIA [id number] [place] [phone] [place] Protein [Mass/Vol] 6.0 g/dL Normal 6.0-8.5 [facility] Comment on above: Order Comment: Brady smith Type: BLOOD SPECIMENOrdering Facility: [facility] Address: [address] [place] [id number] Performed By: #### 2 157-6, 70715-6, ####[facility] LABORATORYCLIA [id number] [place] [phone] [place] Sodium [Moles/Vol] 135 mmol/L Low 136-145 [facility] Comment on above: Order Comment: Brady smith Type: BLOOD SPECIMENOrdering Facility: [facility] Address: [address] [place] [address] Performed By: #### 2 157-6, 94087-1, 22067-0 ####[facility] LABORATORYCLIA [id number] [place] [phone] [place] Urea nitrogen [Mass/Vol] Normal [facility] Comment on above: Order Comment: Speci men Type: BLOOD SPECIMENOrdering Facility: [facility] Address: [address] [place] [address] Result Comment: Unab le to assay due to interference from hemolysis. Suggest reorder as clinically indicated. Performed By: #### 2 157-6, 11105-5, 73483-3 ####[facility] LABORATORYCLIA [id number] [place] [id number] [place] Magnesium SerPl-mCncon 10-22 Magnesium [Mass/Vol] 1.7 mg/dL Normal 1.6-2.6 [facility] Comment on above: Order Comment: Speci men Type: BLOOD SPECIMENOrdering Facility: [facility] Address: [address] [place] [address] Performed By: #### 2 157-6, 97548-7, 89826-7 ####[facility] LABORATORYCLIA [id number] [place] [id number] [place] NURSING PROGon 10-23-2023 NURSING PROG [facility] THERAPY NTon 10-23-2023 THERAPY NT [facility] THERAPY NT [facility] Basic metabolic 2000 panelon 10-22-2023 Anion gap [Moles/Vol] 7 mmol/L Normal 5-16 [facility] Comment on above: Order Comment: Speci men Type: BLOOD SPECIMENOrdering Facility: [facility] Address: [address] [place] [address] Performed By: #### 2 4321-2, 2157-6 ####[facility] LABORATORYCLIA [id number] [place] [phone] [place] Calcium [Mass/Vol] 10.4 mg/dL Normal 8.5-10.5 [facility] Comment on above: Order Comment: Speci men Type: BLOOD SPECIMENOrdering Facility: [facility] Address: [address] [place] [address] Performed By: #### 2 4321-2, 2156-08 ####[facility] LABORATORYCLIA [id number] [place] [id number] [place] Chloride [Moles/Vol] 103 mmol/L Normal 98-107 [facility] Comment on above: Order Comment: Speci men Type: BLOOD SPECIMENOrdering Facility: [facility] Address: [address] [place] [address] Performed By: #### 2 4321-2, 2156-08 ####[facility] LABORATORYCLIA [id number] [place] [address] [place] CO2 [Moles/Vol] 28 mmol/L Normal 21-32 [facility] Comment on above: Order Comment: Speci men Type: BLOOD SPECIMENOrdering Facility: [facility] Address: [address] [place] [address] Performed By: #### 2 4321-2, 2156-08 ####[facility] LABORATORYCLIA [id number] [place] [address] [place] Creatinine [Mass/Vol] 1.16 mg/dL High 0.51-0.95 [facility] Comment on above: Order Comment: Speci men Type: BLOOD SPECIMENOrdering Facility: [facility] Address: [address] [place] [address] Result Comment: Linn ents receiving either N-Acetylcysteine (NAC) or Metamizole prior to venipuncture, may have falsely depressed results. Performed By: #### 2 4321-2, 2156-08 ####[facility] LABORATORYCLIA [id number] [place] [address] [place] Creatinine and Glomerular filtration rate.predicted panel (S/P/Bld) 47 mL/min/1.73m??? Low >=60 [facility] Comment on above: Order Comment: Speci men Type: BLOOD SPECIMENOrdering Facility: [facility] Address: [address] [place] [address] Result Comment: Esme mated Glomerular Filtration Rate [...] GFR. Performed By: #### 2 4321-2, 2156-08 ####[facility] LABORATORYCLIA [id number] [place] [id number] [place] Glucose [Mass/Vol] 85 mg/dL Normal 70-100 [facility] Comment on above: Order Comment: Brady smith Type: BLOOD SPECIMENOrdering Facility: [facility] Address: [address] [place] [address] Result Comment: The [place] [employer] (ADA) provides guidance for cutoff [...] Standards of Medical Care in Diabetes 2016, [place] [employer]. Diabetes Care. 2016.39(Suppl 1).Results may be falsely elevated after the administration of Sulfapyridine.Results may be falsely depressed after the administration of Sulfasalazine. Performed By: #### 2 4321-2, 2156-08 ####[facility] LABORATORYCLIA [id number] [place] [id number] [place] Potassium [Moles/Vol] 3.6 mmol/L Normal 3.5-5.1 [facility] Comment on above: Order Comment: Brady smith Type: BLOOD SPECIMENOrdering Facility: [facility] Address: [address] [place] [id number] Performed By: #### 2 4321-2, 2156-08 ####[facility] LABORATORYCLIA [id number] [place] [address] [place] [place] Sodium [Moles/Vol] 138 mmol/L Normal 136-145 [facility] Comment on above: Order Comment: Speci men Type: BLOOD SPECIMENOrdering Facility: [facility] Address: [address] [place], [place] [address] [address] Performed By: #### 2 4321-2, 2156-08 ####[facility] LABORATORYCLIA [id number] [place] [id number] [place] Urea nitrogen [Mass/Vol] 20 mg/dL Normal 7- [facility] Comment on above: Order Comment: Speci men Type: BLOOD SPECIMENOrdering Facility: [facility] Address: [address] [place] [address] Performed By: #### 2 4321-2, 2156-08 ####[facility] LABORATORYCLIA [id number] [place] [id number] [place] CASE MGT INIT ASSESon 2023 CASE MGT INIT [facility] Normal [facility] CK SerPl-cCncon 10-22-2023 CK [Catalytic activity/Vol] 251 U/L High 28-152 [facility] Comment on above: Order Comment: Speci men Type: BLOOD SPECIMENOrdering Facility: [facility] Address: [facility] [place] [address] Performed By: #### 2 4321-2, 2156-08 ####[facility] LABORATORYCLIA [id number] [place] [address] [place] THERAPY NTon 10-22-2023 THERAPY NT Normal [facility] Basic metabolic 2000 panelon 10-21-2023 Anion gap [Moles/Vol] 8 mmol/L Normal 5-16 [facility] Comment on above: Order Comment: Speci men Type: BLOOD SPECIMENOrdering Facility: [facility] Address: [address] [place], [place] [address] [address] Performed By: #### 2 4321-2, 2156-6, 77850-6, 75031-1 ####[facility] LABORATORYCLIA [id number] [place] [address] [place] Calcium [Mass/Vol] 11.4 mg/dL High 8.5-10.5 [facility] Comment on above: Order Comment: Speci men Type: BLOOD SPECIMENOrdering Facility: [facility] Address: [address] [place] [address] Performed By: #### 2 4321-2, 2156-6, 16339-6, ####[facility] LABORATORYCLIA [id number] [place] [id number] [place] Chloride [Moles/Vol] 96 mmol/L Low 98-107 [facility] Comment on above: Order Comment: Speci men Type: BLOOD SPECIMENOrdering Facility: [facility] Address: [address] [place] [address] Performed By: #### 2 4321-2, 2156-6, 13235-5, ####[facility] LABORATORYCLIA [id number] [place] [id number] [place] CO2 [Moles/Vol] 32 mmol/L Normal 21-32 [facility] Comment on above: Order Comment: Speci men Type: BLOOD SPECIMENOrdering Facility: [facility] Address: [address] [place] [address] Performed By: #### 2 4321-2, 2156-6, 66636-0, ####[facility] LABORATORYCLIA [id number] [place] [address] [place] Creatinine [Mass/Vol] 1.52 mg/dL High 0.51-0.95 [facility] Comment on above: Order Comment: Speci men Type: BLOOD SPECIMENOrdering Facility: [facility] Address: [address] [place] [address] Result Comment: Linn ents receiving either N-Acetylcysteine (NAC) or Metamizole prior to venipuncture, may have falsely depressed results. Performed By: #### 2 4321-2, 2157-6, 45004-3, 58810-6 ####[facility] LABORATORYCLIA [id number] [place] [id number] [place] Creatinine and Glomerular filtration rate.predicted panel (S/P/Bld) 34 mL/min/1.73m??? Low >=60 [facility] Comment on above: Order Comment: Brady smith Type: BLOOD SPECIMENOrdering Facility: [facility] Address: [address] [place] [address] Result Comment: Esme mated Glomerular Filtration Rate [...] actual GFR. Performed By: #### 2 4321-2, 2157-6, 96964-2, 62593-3 ####[facility] LABORATORYCLIA [id number] [place] [id number] [place] Glucose [Mass/Vol] 102 mg/dL High 70-100 [facility] Comment on above: Order Comment: Brady smith Type: BLOOD SPECIMENOrdering Facility: [facility] Address: [address] [place] [address] Result Comment: The [place] [employer] Association (ADA) provides guidance for cutoff [...] Standards of Medical Care in Diabetes 2016, [place] [employer]. Diabetes Care. 2016.39(Suppl 1).Results may be falsely elevated after the administration of Sulfapyridine.Results may be falsely depressed after the administration of Sulfasalazine. Performed By: #### 2 4321-2, 2156-6, 63084-1, 69124-3 ####[facility] LABORATORYCLIA [id number] [place] [id number] [place] Potassium [Moles/Vol] 4.3 mmol/L Normal 3.5-5.1 [facility] Comment on above: Order Comment: Speci men Type: BLOOD SPECIMENOrdering Facility: [facility] Address: [address] [place], [place] [address] Performed By: #### 2 4321-2, 2156-6, 35501-0, 82990-2 ####[facility] LABORATORYCLIA [id number] [place] [id number] [place] Sodium [Moles/Vol] 136 mmol/L Normal 136-145 [facility] Comment on above: Order Comment: Speci men Type: BLOOD SPECIMENOrdering Facility: [facility] Address: [address] [place], [place] [address] Performed By: #### 2 4321-2, 2156-6, 60401-6, 26944-2 ####[facility] LABORATORYCLIA [id number] [place] [id number] [place] Urea nitrogen [Mass/Vol] 22 mg/dL Normal 7-26 [facility] Comment on above: Order Comment: Speci men Type: BLOOD SPECIMENOrdering Facility: [facility] Address: [address] [place] [address] Performed By: #### 2 4321-2, 2156-6, 30406-3, 73337-2 ####[facility] LABORATORYCLIA [id number] [place] [id number] [place] CBC W Auto Differential pane l (Bld)on 10-21-2023 Basophils (Bld) [#/Vol] 10*3/uL Normal <0.[address] [facility] Comment on above: Order Comment: Speci men Type: BLOOD SPECIMENOrdering Facility: [facility] Address: [address] [place] [address] Performed By: #### 5 7021-8 ####[facility] LABORATORYCLIA [id number] [place] [address] [place] Basophils/100 WBC (Bld) 0.1 % Normal [facility] Comment on above: Order Comment: Speci men Type: BLOOD SPECIMENOrdering Facility: [facility] Address: [address] [place] [address] Performed By: #### 5 7021-8 ####[facility] LABORATORYCLIA [id number] [place] [address] [place] Differential cell count method Nom (Bld) Auto Normal [facility] Comment on above: Order Comment: Speci men Type: BLOOD SPECIMENOrdering Facility: [facility] Address: [address] [place] [address] Performed By: #### 5 7021-8 ####[facility] LABORATORYCLIA [id number] [address] [place] Eosinophils (Bld) [#/Vol] 0.06 10*3/uL Normal <0.46 [facility] Comment on above: Order Comment: Speci men Type: BLOOD SPECIMENOrdering Facility: [facility] Address: [address] [place] [address] Performed By: #### 5 7021-8 ####[facility] LABORATORYCLIA [id number] [address] [place] Eosinophils/100 WBC (Bld) 0.4 % Normal [facility] Comment on above: Order Comment: Speci men Type: BLOOD SPECIMENOrdering Facility: [facility] Address: [address] [place] [address] Performed By: #### 5 7021-8 ####[facility] LABORATORYCLIA [id number] [place] [address] [place] Erythrocyte distribution width (RBC) [Ratio] 16.1 % High 11.5-15.0 [facility] Comment on above: Order Comment: Speci men Type: BLOOD SPECIMENOrdering Facility: [facility] Address: [address] [place] [address] Performed By: #### 5 7021-8 ####[facility] LABORATORYCLIA [id number] [place] [id number] [place] Hematocrit (Bld) [Volume fraction] 41.4 % Normal 36.0-46.0 [facility] Comment on above: Order Comment: Speci men Type: BLOOD SPECIMENOrdering Facility: [facility] Address: [address] [place] [address] Performed By: #### 5 7021-8 ####[facility] LABORATORYCLIA [id number] [place] [address] [place] Hemoglobin (Bld) [Mass/Vol] 13.9 g/dL Normal 11.5-15.5 [facility] Comment on above: Order Comment: Speci men Type: BLOOD SPECIMENOrdering Facility: [facility] Address: [address] [place] [address] Performed By: #### 5 7021-8 ####[facility] LABORATORYCLIA [id number] [place] [address] [place] Immature granulocytes (Bld) [#/Vol] 0.05 10*3/uL Normal <0.10 [facility] Comment on above: Order Comment: Speci men Type: BLOOD SPECIMENOrdering Facility: [facility] Address: [address] [place] [address] Performed By: #### 5 7021-8 ####[facility] LABORATORYCLIA [id number] [place] [address] [place] Immature granulocytes/100 WBC (Bld) 0.4 % Normal [facility] Comment on above: Order Comment: Speci men Type: BLOOD SPECIMENOrdering Facility: [facility] Address: [address] [place] [address] Performed By: #### 5 7021-8 ####[facility] LABORATORYCLIA [id number] [place] [id number] [place] Lymphocytes (Bld) [#/Vol] 1.52 10*3/uL Normal 1.00-4.00 [facility] Comment on above: Order Comment: Speci men Type: BLOOD SPECIMENOrdering Facility: [facility] Address: [address] [place] [address] Performed By: #### 5 7021-8 ####[facility] LABORATORYCLIA [id number] [address] Lymphocytes/100 WBC (Bld) 10.9 % Normal [facility] Comment on above: Order Comment: Speci men Type: BLOOD SPECIMENOrdering Facility: [facility] Address: [address] [place] [address] Performed By: #### 5 7021-8 ####[facility] LABORATORYCLIA [id number] [place] [address] [place] MCH (RBC) [Entitic mass] 27.6 pg Normal 26.0-34.0 [facility] Comment on above: Order Comment: Speci men Type: BLOOD SPECIMENOrdering Facility: [facility] Address: [address] [place] [address] Performed By: #### 5 7021-8 ####[facility] LABORATORYCLIA [id number] [address] [place] MCHC (RBC) [Mass/Vol] 33.6 g/dL Normal 30.5-36.0 [facility] Comment on above: Order Comment: Speci men Type: BLOOD SPECIMENOrdering Facility: [facility] Address: [address] [place] [address] Performed By: #### 5 7021-8 ####[facility] LABORATORYCLIA [id number] [address] [place] MCV (RBC) [Entitic vol] 82.1 fL Normal 80.0-100.[address] [facility] Comment on above: Order Comment: Speci men Type: BLOOD SPECIMENOrdering Facility: [facility] Address: [address] [place] [address] Performed By: #### 5 7021-8 ####[facility] LABORATORYCLIA [id number] [place] [address] [place] Monocytes (Bld) [#/Vol] 1.66 10*3/uL High <0.87 [facility] Comment on above: Order Comment: Speci men Type: BLOOD SPECIMENOrdering Facility: [facility] Address: [address] [place] [address] Performed By: #### 5 7021-8 ####[facility] LABORATORYCLIA [id number] [place] [address] [place] Monocytes/100 WBC (Bld) 11.9 % Normal [facility] Comment on above: Order Comment: Speci men Type: BLOOD SPECIMENOrdering Facility: [facility] Address: [address] [place] [address] Performed By: #### 5 7021-8 ####[facility] LABORATORYCLIA [id number] [place] [address] [place] Neutrophils (Bld) [#/Vol] 10.67 10*3/uL High 1.45-7.50 [facility] Comment on above: Order Comment: Speci men Type: BLOOD SPECIMENOrdering Facility: [facility] Address: [address] [place] [address] Performed By: #### 5 7021-8 ####[facility] LABORATORYCLIA [id number] [place] [id number] [place] Neutrophils/100 WBC (Bld) 76.3 % Normal [facility] Comment on above: Order Comment: Speci men Type: BLOOD SPECIMENOrdering Facility: [facility] Address: [address] [place] [address] Performed By: #### 5 7021-8 ####[facility] LABORATORYCLIA [id number] [place] [id number] [place] Nucleated RBC (Bld) [#/Vol] 10*3/uL Normal <0.01 [facility] Comment on above: Order Comment: Speci men Type: BLOOD SPECIMENOrdering Facility: [facility] Address: [address] [place] [address] Performed By: #### 5 7021-8 ####[facility] LABORATORYCLIA [id number] [place] [id number] [place] Nucleated RBC/100 WBC (Bld) [Ratio] 0.0 /100 WBC Normal [facility] Comment on above: Order Comment: Speci men Type: BLOOD SPECIMENOrdering Facility: [facility] Address: [address] [place] [address] Performed By: #### 5 7021-8 ####[facility] LABORATORYCLIA [id number] [place] [id number] [place] Platelet mean volume (Bld) [Entitic vol] 9.4 fL Normal 9.0-12.7 [facility] Comment on above: Order Comment: Speci men Type: BLOOD SPECIMENOrdering Facility: [facility] Address: [address] [place] [address] Performed By: #### 5 7021-8 ####[facility] LABORATORYCLIA [id number] [place] [address] [place] Platelets (Bld) [#/Vol] 142 10*3/uL Low 150-400 [facility] Comment on above: Order Comment: Speci men Type: BLOOD SPECIMENOrdering Facility: [facility] Address: [address] [place] [address] Performed By: #### 5 7021-8 ####[facility] LABORATORYCLIA [id number] [place] [address] [place] RBC (Bld) [#/Vol] 5.04 10*6/uL Normal 3.90-5.20 [facility] Comment on above: Order Comment: Speci men Type: BLOOD SPECIMENOrdering Facility: [facility] Address: [facility] [place] [address] Performed By: #### 5 7021-8 ####[facility] LABORATORYCLIA [id number] [place] [id number] [place] WBC (Bld) [#/Vol] 13.97 10*3/uL High 3.70-11.00 [facility] Comment on above: Order Comment: Speci men Type: BLOOD SPECIMENOrdering Facility: [facility] Address: [address] [place] [address] Performed By: #### 5 7021-8 ####[facility] LABORATORYCLIA [id number] [place] [phone] [facility] [place] CK SerPl-cCncon 10-21-2023 CK [Catalytic activity/Vol] 673 U/L High 28-152 [facility] Comment on above: Order Comment: Speci men Type: BLOOD SPECIMENOrdering Facility: [facility] Address: [address] [place] [address] Performed By: #### 2 4321-2, 2157-6, 64244-8, 69182-4 ####[facility] LABORATORYCLIA [id number] [address] [place] BRAIN WO IVCONon 10-21-[address] BRAIN WO IVCON Normal [facility] CT CERVICAL SPINE WO IVCONon 10-21-2023 CT CERVICAL SPINE WO IVCON Normal [facility] ECG COMPLETEon 10-21-2023 ECG COMPLETE Normal [facility] ED PROV NOTEon 10-21-2023 ED PROV NOTE Normal [facility] HIGH SENSITIVITY TROPONIN Io n 10-21-2023 Tropinin I.cardiac panel High sensitivity method 14.3 pg/mL Normal 0.0-34.0 [facility] Comment on above: Order Comment: Speci men Type: BLOOD SPECIMENOrdering Facility: [facility] Address: [address] [place] [address] Performed By: #### H STROP ####[facility] LABORATORYCLIA [id number] [address] OF [facility] HISTORY PHYSICALon HISTORY PHYSICAL Normal [facility] Hepatic function 2000 panelo n 10-21-2023 Albumin [Mass/Vol] 3.5 g/dL Normal 3.2-5.0 [facility] Comment on above: Order Comment: Speci men Type: BLOOD SPECIMENOrdering Facility: [facility] Address: [address] [place] [address] Performed By: #### 2 4321-2, 2156-6, 19863-7, ####[facility] LABORATORYCLIA [id number] [place] [id number] [place] ALP [Catalytic activity/Vol] 96 U/L Normal 45-117 [facility] Comment on above: Order Comment: Speci men Type: BLOOD SPECIMENOrdering Facility: [facility] Address: [address] [place] [address] Performed By: #### 2 4321-2, 6, 43610-9, ####[facility] LABORATORYCLIA [id number] [place] [phone] [place] ALT [Catalytic activity/Vol] 19 U/L Normal 13-61 [facility] Comment on above: Order Comment: Speci men Type: BLOOD SPECIMENOrdering Facility: [facility] Address: [address] [place] [address] Result Comment: Resu lts may be falsely depressed after the administration of Sulfasalazine and/or Sulfapyridine. Performed By: #### 2 4321-2, 6, 94032-4, ####[facility] LABORATORYCLIA [id number] [place] [id number] [place] AST [Catalytic activity/Vol] 40 U/L High 8-34 [facility] Comment on above: Order Comment: Speci men Type: BLOOD SPECIMENOrdering Facility: [facility] Address: [address] [place] [address] Result Comment: Resu lts may be falsely depressed after the administration of Sulfasalazine and/or Sulfapyridine. Performed By: #### 2 4321-2, 6, 74392-9, ####[facility] LABORATORYCLIA [id number] [place] [id number] [place] Bilirubin [Mass/Vol] 1.7 mg/dL High 0.2-1.0 [facility] Comment on above: Order Comment: Speci men Type: BLOOD SPECIMENOrdering Facility: [facility] Address: [facility] [place] [address] Performed By: #### 2 4321-2, 2156-08, 46027-3, ####[facility] LABORATORYCLIA [id number] [place] [address] [place] Bilirubin.conjugated [Mass/Vol] 0.5 mg/dL High 0.0-0.4 [facility] Comment on above: Order Comment: Speci men Type: BLOOD SPECIMENOrdering Facility: [facility] Address: [address] [place], [place] [address] [address] Performed By: #### 2 4321-2, 2156-08, 63831-8, ####[facility] LABORATORYCLIA [id number] [place] [id number] [place] Protein [Mass/Vol] 7.2 g/dL Normal 6.0-8.5 [facility] Comment on above: Order Comment: Speci men Type: BLOOD SPECIMENOrdering Facility: [facility] Address: [facility] [place] [address] Performed By: #### 2 4321-2, 2156-08, 65229-5, ####[facility] LABORATORYCLIA [id number] [place] [id number] [place] Magnesium SerPl-mCncon 10-20 Magnesium [Mass/Vol] 1.4 mg/dL Low 1.6-2.6 [facility] Comment on above: Order Comment: Speci men Type: BLOOD SPECIMENOrdering Facility: [facility] Address: [facility] [address] [place] [id number] Performed By: #### 2 4321-2, 2156-08, 44629-5, ####[facility] LABORATORYCLIA [id number] [place] [address] [place] Urinalysis complete pnl Uron 10-21-2023 Urinalysis complete panel (U) Normal [facility] Comment on above: Order Comment: Speci men Type: URINE SPECIMENOrdering Facility: [facility] Address: [address] [place], [place] [address] [address] Performed By: #### 2 4356-8 ####[facility] LABORATORYCLIA [id number] [place] [id number] [place] XR PELVIS 1V APon 10-21-2023 XR PELVIS 1V AP Normal [facility] CASE MANAGEMon 09-22-2023 CASE MANAGEM Normal [facility] CASE MANAGEM Normal [facility] CASE MANAGEM Normal [facility] CNDSon 09-22-2023 CNDS Normal [facility] NUTRITIONon 09-22-2023 NUTRITION Normal [facility] THERAPY NTon 09-22-2023 THERAPY NT [facility] THERAPY NT Normal [facility] Basic metabolic 2000 panelon 09-21-2023 Anion gap [Moles/Vol] 4 mmol/L Low 5-16 [facility] Comment on above: Order Comment: Speci men Type: BLOOD SPECIMENOrdering Facility: [facility] Address: [address] [place] [address] Performed By: #### 2 4321-2, ####[facility] LABORATORYCLIA [id number] [place] [id number] [place] Calcium [Mass/Vol] 10.3 mg/dL Normal 8.5-10.5 [facility] Comment on above: Order Comment: Speci men Type: BLOOD SPECIMENOrdering Facility: [facility] Address: [address] [place] [address] Performed By: #### 2 4321-2, ####[facility] LABORATORYCLIA [id number] [place] [id number] [place] Chloride [Moles/Vol] 96 mmol/L Low 98-107 [facility] Comment on above: Order Comment: Speci men Type: BLOOD SPECIMENOrdering Facility: [facility] Address: [address] [place] [address] Performed By: #### 2 4321-2, ####[facility] LABORATORYCLIA [id number] [place] [address] [place] CO2 [Moles/Vol] 32 mmol/L Normal 21-32 [facility] Comment on above: Order Comment: Speci men Type: BLOOD SPECIMENOrdering Facility: [facility] Address: [address] [place] [address] Performed By: #### 2 432-2, ####[facility] LABORATORYCLIA [id number] [place] [address] [place] Creatinine [Mass/Vol] 0.71 mg/dL Normal 0.51-0.95 [facility] Comment on above: Order Comment: Speci men Type: BLOOD SPECIMENOrdering Facility: [facility] Address: [address] [place] [address] Result Comment: Linn ents receiving either N-Acetylcysteine (NAC) or Metamizole prior to venipuncture, may have falsely depressed results. Performed By: #### 2 4320-04, ####[facility] LABORATORYCLIA [id number] [place] [address] [place] Creatinine and Glomerular filtration rate.predicted panel (S/P/Bld) 84 mL/min/1.73m??? Normal >=60 [facility] Comment on above: Order Comment: Speci men Type: BLOOD SPECIMENOrdering Facility: [facility] Address: [address] [place] [address] Result Comment: Esme mated Glomerular Filtration Rate [...] actual GFR. Performed By: #### 2 4321-2, ####[facility] LABORATORYCLIA [id number] [place] [id number] [place] Glucose [Mass/Vol] 83 mg/dL Normal 70-100 [facility] Comment on above: Order Comment: Brady smith Type: BLOOD SPECIMENOrdering Facility: [facility] Address: [address] [place] [address] Result Comment: The [place] Diabetes Association (ADA) provides guidance for cutoff [...] Standards of Medical Care in Diabetes 2016, [place] [employer]. Diabetes Care. 2016.39(Suppl 1).Results may be falsely elevated after the administration of Sulfapyridine.Results may be falsely depressed after the administration of Sulfasalazine. Performed By: #### 2 432-, ####[facility] LABORATORYCLIA [id number] [place] [address] [place] Potassium [Moles/Vol] 3.9 mmol/L Normal 3.5-5.1 [facility] Comment on above: Order Comment: Brady smith Type: BLOOD SPECIMENOrdering Facility: [facility] Address: [address] [id number] Performed By: #### 2 43203-11, ####[facility] LABORATORYCLIA [id number] [place] [id number] [place] Sodium [Moles/Vol] 132 mmol/L Low 136-145 [facility] Comment on above: Order Comment: Brady smith Type: BLOOD SPECIMENOrdering Facility: [facility] Address: [address] [phone] Performed By: #### 2 432-, ####[facility] LABORATORYCLIA [id number] [place] [id number] [place] Urea nitrogen [Mass/Vol] 7 mg/dL Normal 7-26 [facility] Comment on above: Order Comment: Speci men Type: BLOOD SPECIMENOrdering Facility: [facility] Address: [facility] [place] [address] Performed By: #### 2 4321-2, ####[facility] LABORATORYCLIA [id number] [place] [address] [place] Magnesium SerPl-mCncon 09-20 Magnesium [Mass/Vol] 1.9 mg/dL Normal 1.6-2.6 [facility] Comment on above: Order Comment: Speci men Type: BLOOD SPECIMENOrdering Facility: [facility] Address: [address] [place] [address] Performed By: #### 2 4321-2, ####[facility] LABORATORYCLIA [id number] [place] [id number] [place] Basic metabolic 2000 panelon 09-20-2023 Anion gap [Moles/Vol] 4 mmol/L Low 5-16 [facility] Comment on above: Order Comment: Speci men Type: BLOOD SPECIMENOrdering Facility: [facility] Address: [facility] [place] [address] Performed By: #### 2 4321-2, ####[facility] LABORATORYCLIA [id number] [place] [address] [place] Calcium [Mass/Vol] 10.3 mg/dL Normal 8.5-10.5 [facility] Comment on above: Order Comment: Speci men Type: BLOOD SPECIMENOrdering Facility: [facility] Address: [address] [place] [address] [place] [address] Performed By: #### 2 4321-2, ####[facility] LABORATORYCLIA [id number] [place] [address] [place] Chloride [Moles/Vol] 95 mmol/L Low 98-107 [facility] Comment on above: Order Comment: Speci men Type: BLOOD SPECIMENOrdering Facility: [facility] Address: [address] [place] [address] Performed By: #### 2 4321-2, ####[facility] LABORATORYCLIA [id number] [place] [address] [place] CO2 [Moles/Vol] 31 mmol/L Normal 21-32 [facility] Comment on above: Order Comment: Speci men Type: BLOOD SPECIMENOrdering Facility: [facility] Address: [address] [place] [address] Performed By: #### 2 432-2, ####[facility] LABORATORYCLIA [id number] [address] [place] Creatinine [Mass/Vol] 0.76 mg/dL Normal 0.51-0.95 [facility] Comment on above: Order Comment: Speci men Type: BLOOD SPECIMENOrdering Facility: [facility] Address: [address] [place] [address] Result Comment: Linn ents receiving either N-Acetylcysteine (NAC) or Metamizole prior to venipuncture, may have falsely depressed results. Performed By: #### 2 4321-, ####[facility] LABORATORYCLIA [id number] [address] Creatinine and Glomerular filtration rate.predicted panel (S/P/Bld) 77 mL/min/1.73m??? Normal >=60 [facility] Comment on above: Order Comment: Speci men Type: BLOOD SPECIMENOrdering Facility: [facility] Address: [address] [place] [address] Result Comment: Esme mated Glomerular Filtration Rate [...] actual GFR. Performed By: #### 2 4321-2, ####[facility] LABORATORYCLIA [id number] [place] [address] [place] Glucose [Mass/Vol] 91 mg/dL Normal 70-100 [facility] Comment on above: Order Comment: Brady smith Type: BLOOD SPECIMENOrdering Facility: [facility] Address: [address] [phone] Result Comment: The [place] Diabetes Association (ADA) provides guidance for cutoff [...] Standards of Medical Care in Diabetes 2016, [place] [employer]. Diabetes Care. 2016.39(Suppl 1).Results may be falsely elevated after the administration of Sulfapyridine.Results may be falsely depressed after the administration of Sulfasalazine. Performed By: #### 2 4320-04, ####[facility] LABORATORYCLIA [id number] [place] [address] [place] Potassium [Moles/Vol] 3.9 mmol/L Normal 3.5-5.1 [facility] Comment on above: Order Comment: Brady smith Type: BLOOD SPECIMENOrdering Facility: [facility] Address: [address] [place] [address] Performed By: #### 2 43203-11, ####[facility] LABORATORYCLIA [id number] [place] [id number] [place] Sodium [Moles/Vol] 130 mmol/L Low 136-145 [facility] Comment on above: Order Comment: Brady smith Type: BLOOD SPECIMENOrdering Facility: [facility] Address: [address] [phone] Performed By: #### 2 4320-04, ####[facility] LABORATORYCLIA [id number] [place] [address] [place] Urea nitrogen [Mass/Vol] 9 mg/dL Normal 7- [facility] Comment on above: Order Comment: Speci men Type: BLOOD SPECIMENOrdering Facility: [facility] Address: [address] [place] [address] Performed By: #### 2 4321-2, 16003-6 ####[facility] LABORATORYCLIA [id number] [place] [address] [place] CBC W Auto Differential pane l (Bld)on 09-20-2023 Basophils (Bld) [#/Vol] 10*3/uL Normal <0.11 [facility] Comment on above: Order Comment: Speci men Type: BLOOD SPECIMENOrdering Facility: [facility] Address: [address] [place] [address] Performed By: #### 5 7021-8 ####[facility] LABORATORYCLIA [id number] [address] [place] Basophils/100 WBC (Bld) 0.3 % Normal [facility] Comment on above: Order Comment: Speci men Type: BLOOD SPECIMENOrdering Facility: [facility] Address: [address] [place] [address] Performed By: #### 5 7021-8 ####[facility] LABORATORYCLIA [id number] [address] [place] Differential cell count method Nom (Bld) Auto Normal [facility] Comment on above: Order Comment: Speci men Type: BLOOD SPECIMENOrdering Facility: [facility] Address: [address] [place] [address] Performed By: #### 5 7021-8 ####[facility] LABORATORYCLIA [id number] [place] [address] [place] Eosinophils (Bld) [#/Vol] 0.30 10*3/uL Normal <0.46 [facility] Comment on above: Order Comment: Speci men Type: BLOOD SPECIMENOrdering Facility: [facility] Address: [address] [place] [address] Performed By: #### 5 7021-8 ####[facility] LABORATORYCLIA [id number] [place] [id number] [place] Eosinophils/100 WBC (Bld) 4.5 % Normal [facility] Comment on above: Order Comment: Speci men Type: BLOOD SPECIMENOrdering Facility: [facility] Address: [address] [place] [address] Performed By: #### 5 7021-8 ####[facility] LABORATORYCLIA [id number] [address] [place] Erythrocyte distribution width (RBC) [Ratio] 13.2 % Normal 11.5-15.0 [facility] Comment on above: Order Comment: Speci men Type: BLOOD SPECIMENOrdering Facility: [facility] Address: [address] [place] [address] Performed By: #### 5 7021-8 ####[facility] LABORATORYCLIA [id number] [address] [place] Hematocrit (Bld) [Volume fraction] 38.0 % Normal 36.0-46.0 [facility] Comment on above: Order Comment: Speci men Type: BLOOD SPECIMENOrdering Facility: [facility] Address: [address] [place] [address] Performed By: #### 5 7021-8 ####[facility] LABORATORYCLIA [id number] [place] [address] [place] Hemoglobin (Bld) [Mass/Vol] 12.6 g/dL Normal 11.5-15.5 [facility] Comment on above: Order Comment: Speci men Type: BLOOD SPECIMENOrdering Facility: [facility] Address: [address] [place] [address] Performed By: #### 5 7021-8 ####[facility] LABORATORYCLIA [id number] [place] [address] [place] Immature granulocytes (Bld) [#/Vol] 10*3/uL Normal <0.10 [facility] Comment on above: Order Comment: Speci men Type: BLOOD SPECIMENOrdering Facility: [facility] Address: [address] [place] [address] Performed By: #### 5 7021-8 ####[facility] LABORATORYCLIA [id number] [address] [place] Immature granulocytes/100 WBC (Bld) 0.3 % Normal [facility] Comment on above: Order Comment: Speci men Type: BLOOD SPECIMENOrdering Facility: [facility] Address: [address] [place] [address] Performed By: #### 5 7021-8 ####[facility] LABORATORYCLIA [id number] [place] [address] [place] Lymphocytes (Bld) [#/Vol] 1.60 10*3/uL Normal 1.00-4.00 [facility] Comment on above: Order Comment: Speci men Type: BLOOD SPECIMENOrdering Facility: [facility] Address: [address] [place] [address] Performed By: #### 5 7021-8 ####[facility] LABORATORYCLIA [id number] [address] [place] Lymphocytes/100 WBC (Bld) 23.9 % Normal [facility] Comment on above: Order Comment: Speci men Type: BLOOD SPECIMENOrdering Facility: [facility] Address: [address] [place] [address] Performed By: #### 5 7021-8 ####[facility] LABORATORYCLIA [id number] [place] [address] [place] MCH (RBC) [Entitic mass] 27.6 pg Normal 26.0-34.0 [facility] Comment on above: Order Comment: Speci men Type: BLOOD SPECIMENOrdering Facility: [facility] Address: [address] [place] [address] Performed By: #### 5 7021-8 ####[facility] LABORATORYCLIA [id number] [address] [place] MCHC (RBC) [Mass/Vol] 33.2 g/dL Normal 30.5-36.0 [facility] Comment on above: Order Comment: Speci men Type: BLOOD SPECIMENOrdering Facility: [facility] Address: [address] [place] [address] Performed By: #### 5 7021-8 ####[facility] LABORATORYCLIA [id number] [place] [address] [place] MCV (RBC) [Entitic vol] 83.2 fL Normal 80.0-100.0 [facility] Comment on above: Order Comment: Speci men Type: BLOOD SPECIMENOrdering Facility: [facility] Address: [address] [place] [address] Performed By: #### 5 7021-8 ####[facility] LABORATORYCLIA [id number] [place] [address] [place] Monocytes (Bld) [#/Vol] 0.70 10*3/uL Normal <0.87 [facility] Comment on above: Order Comment: Speci men Type: BLOOD SPECIMENOrdering Facility: [facility] Address: [address] [place] [address] Performed By: #### 5 7021-8 ####[facility] LABORATORYCLIA [id number] [address] [place] Monocytes/100 WBC (Bld) 10.4 % Normal [facility] Comment on above: Order Comment: Speci men Type: BLOOD SPECIMENOrdering Facility: [facility] Address: [address] [place] [address] Performed By: #### 5 7021-8 ####[facility] LABORATORYCLIA [id number] [place] [address] [place] Neutrophils (Bld) [#/Vol] 4.06 10*3/uL Normal 1.45-7.50 [facility] Comment on above: Order Comment: Speci men Type: BLOOD SPECIMENOrdering Facility: [facility] Address: [address] [place] [address] Performed By: #### 5 7021-8 ####[facility] LABORATORYCLIA [id number] [place] [id number] [place] Neutrophils/100 WBC (Bld) 60.6 % Normal [facility] Comment on above: Order Comment: Speci men Type: BLOOD SPECIMENOrdering Facility: [facility] Address: [address] [place] [address] Performed By: #### 5 7021-8 ####[facility] LABORATORYCLIA [id number] [place] [address] [place] Nucleated RBC (Bld) [#/Vol] 10*3/uL Normal <0.01 [facility] Comment on above: Order Comment: Speci men Type: BLOOD SPECIMENOrdering Facility: [facility] Address: [address] [place] [address] Performed By: #### 5 7021-8 ####[facility] LABORATORYCLIA [id number] [place] [address] [place] Nucleated RBC/100 WBC (Bld) [Ratio] 0.0 /100 WBC Normal [facility] Comment on above: Order Comment: Speci men Type: BLOOD SPECIMENOrdering Facility: [facility] Address: [address] [place] [address] Performed By: #### 5 7021-8 ####[facility] LABORATORYCLIA [id number] [place] [address] [place] Platelet mean volume (Bld) [Entitic vol] 9.9 fL Normal 9.0-12.7 [facility] Comment on above: Order Comment: Speci men Type: BLOOD SPECIMENOrdering Facility: [facility] Address: [address] [place] [address] Performed By: #### 5 7021-8 ####[facility] LABORATORYCLIA [id number] [place] [address] [place] Platelets (Bld) [#/Vol] 108 10*3/uL Low 150-400 [facility] Comment on above: Order Comment: Speci men Type: BLOOD SPECIMENOrdering Facility: [facility] Address: [address] [place] [address] Result Comment: No c lot detected. Performed By: #### 5 7021-8 ####[facility] LABORATORYCLIA [id number] [address] [place] RBC (Bld) [#/Vol] 4.57 10*6/uL Normal 3.90-5.20 [facility] Comment on above: Order Comment: Speci men Type: BLOOD SPECIMENOrdering Facility: [facility] Address: [address] [place] [address] Performed By: #### 5 7021-8 ####[facility] LABORATORYCLIA [id number] [address] WBC (Bld) [#/Vol] 6.70 10*3/uL Normal 3.70-11.00 [facility] Comment on above: Order Comment: Speci men Type: BLOOD SPECIMENOrdering Facility: [facility] Address: [address] [place] [address] Performed By: #### 5 7021-8 ####[facility] LABORATORYCLIA [id number] [place] [address] [place] Magnesium SerPl-mCncon 09-19 Magnesium [Mass/Vol] 2.0 mg/dL Normal 1.6-2.6 [facility] Comment on above: Order Comment: Speci men Type: BLOOD SPECIMENOrdering Facility: [facility] Address: [address] [place] [address] Performed By: #### 2 4321-2, 27731-4 ####[facility] LABORATORYCLIA [id number] [place] [id number] [place] NURSING PROGon 09-20-2023 NURSING PROG Normal [facility] Basic metabolic 2000 panelon 09-19-2023 Anion gap [Moles/Vol] mmol/L Low 5-16 [facility] Comment on above: Order Comment: Speci men Type: BLOOD SPECIMENOrdering Facility: [facility] Address: [address] [place], [place] [address] Performed By: #### 2 4321-2, , 3083-03 ####[facility] LABORATORYCLIA [id number] [place] [id number] [place] Calcium [Mass/Vol] 10.1 mg/dL Normal 8.5-10.5 [facility] Comment on above: Order Comment: Speci men Type: BLOOD SPECIMENOrdering Facility: [facility] Address: [address] [place] [address] Performed By: #### 2 4321-2, , 3083-03 ####[facility] LABORATORYCLIA [id number] [place] [id number] [place] Chloride [Moles/Vol] 98 mmol/L Normal 98-107 [facility] Comment on above: Order Comment: Speci men Type: BLOOD SPECIMENOrdering Facility: [facility] Address: [address] [place] [address] Performed By: #### 2 4321-2, , 3083-03 ####[facility] LABORATORYCLIA [id number] [place] [id number] [place] CO2 [Moles/Vol] 32 mmol/L Normal 21-32 [facility] Comment on above: Order Comment: Speci men Type: BLOOD SPECIMENOrdering Facility: [facility] Address: [address] [place] [address] Performed By: #### 2 4321-2, , 3083-03 ####[facility] LABORATORYCLIA [id number] [place] [id number] [place] Creatinine [Mass/Vol] 0.96 mg/dL High 0.51-0.95 [facility] Comment on above: Order Comment: Speci men Type: BLOOD SPECIMENOrdering Facility: [facility] Address: [address] [place] [address] Result Comment: Linn ents receiving either N-Acetylcysteine (NAC) or Metamizole prior to venipuncture, may have falsely depressed results. Performed By: #### 2 4321-2, 49950-1, 3083-03 ####[facility] LABORATORYCLIA [id number] [place] [id number] [place] Creatinine and Glomerular filtration rate.predicted panel (S/P/Bld) 58 mL/min/1.73m??? Low >=60 [facility] Comment on above: Order Comment: Brady smith Type: BLOOD SPECIMENOrdering Facility: [facility] Address: [address] [place] [address] Result Comment: Esme mated Glomerular Filtration Rate [...] actual GFR. Performed By: #### 2 4321-2, 25899-4, 3083-03 ####[facility] LABORATORYCLIA [id number] [place] [id number] [place] Glucose [Mass/Vol] 95 mg/dL Normal 70-100 [facility] Comment on above: Order Comment: Brady smith Type: BLOOD SPECIMENOrdering Facility: [facility] Address: [address] [place] [address] Result Comment: The [place] [employer] (ADA) provides guidance for cutoff [...] Standards of Medical Care in Diabetes 2016, [place] [employer]. Diabetes Care. 2016.39(Suppl 1).Results may be falsely elevated after the administration of Sulfapyridine.Results may be falsely depressed after the administration of Sulfasalazine. Performed By: #### 2 4321-2, 90847-6, 3083-03 ####[facility] LABORATORYCLIA [id number] [place] [id number] [place] Potassium [Moles/Vol] 3.9 mmol/L Normal 3.5-5.1 [facility] Comment on above: Order Comment: Speci men Type: BLOOD SPECIMENOrdering Facility: [facility] Address: [address] [place] [address] Performed By: #### 2 4321-2, , 3083-03 ####[facility] LABORATORYCLIA [id number] [place] [id number] [place] Sodium [Moles/Vol] 132 mmol/L Low 136-145 [facility] Comment on above: Order Comment: Speci men Type: BLOOD SPECIMENOrdering Facility: [facility] Address: [address] [place] [address] Performed By: #### 2 4321-2, , 3083-03 ####[facility] LABORATORYCLIA [id number] [place] [id number] [place] Urea nitrogen [Mass/Vol] 9 mg/dL Normal 7-26 [facility] Comment on above: Order Comment: Speci men Type: BLOOD SPECIMENOrdering Facility: [facility] Address: [address] [place] [address] Performed By: #### 2 4321-2, , 3083-03 ####[facility] LABORATORYCLIA [id number] [place] [id number] [place] CASE MANAGEMon 09-19-2023 CASE MANAGEM Normal [facility] CBC W Auto Differential pane l (Bld)on 09-19-2023 Basophils (Bld) [#/Vol] 10*3/uL Normal <0.[address] [facility] Comment on above: Order Comment: Speci men Type: BLOOD SPECIMENOrdering Facility: [facility] Address: [address] [place] [address] Performed By: #### 5 7021-8 ####[facility] LABORATORYCLIA [id number] [place] [address] [place] Basophils/100 WBC (Bld) 0.1 % Normal [facility] Comment on above: Order Comment: Speci men Type: BLOOD SPECIMENOrdering Facility: [facility] Address: [address] [place] [address] Performed By: #### 5 7021-8 ####[facility] LABORATORYCLIA [id number] [address] [place] Differential cell count method Nom (Bld) Auto Normal [facility] Comment on above: Order Comment: Speci men Type: BLOOD SPECIMENOrdering Facility: [facility] Address: [address] [place] [address] Performed By: #### 5 7021-8 ####[facility] LABORATORYCLIA [id number] [place] [address] [place] Eosinophils (Bld) [#/Vol] 0.36 10*3/uL Normal <0.46 [facility] Comment on above: Order Comment: Speci men Type: BLOOD SPECIMENOrdering Facility: [facility] Address: [address] [place] [address] Performed By: #### 5 7021-8 ####[facility] LABORATORYCLIA [id number] [address] [place] Eosinophils/100 WBC (Bld) 5.0 % Normal [facility] Comment on above: Order Comment: Speci men Type: BLOOD SPECIMENOrdering Facility: [facility] Address: [address] [place] [address] Performed By: #### 5 7021-8 ####[facility] LABORATORYCLIA [id number] [address] [place] Erythrocyte distribution width (RBC) [Ratio] 13.2 % Normal 11.5-15.0 [facility] Comment on above: Order Comment: Speci men Type: BLOOD SPECIMENOrdering Facility: [facility] Address: [address] [place] [address] Performed By: #### 5 7021-8 ####[facility] LABORATORYCLIA [id number] [place] [address] [place] Hematocrit (Bld) [Volume fraction] 37.8 % Normal 36.0-46.0 [facility] Comment on above: Order Comment: Speci men Type: BLOOD SPECIMENOrdering Facility: [facility] Address: [address] [place] [address] Performed By: #### 5 7021-8 ####[facility] LABORATORYCLIA [id number] [place] [address] [place] Hemoglobin (Bld) [Mass/Vol] 12.5 g/dL Normal 11.5-15.5 [facility] Comment on above: Order Comment: Speci men Type: BLOOD SPECIMENOrdering Facility: [facility] Address: [address] [place] [address] Performed By: #### 5 7021-8 ####[facility] LABORATORYCLIA [id number] [place] [address] [place] Immature granulocytes (Bld) [#/Vol] 0.03 10*3/uL Normal <0.10 [facility] Comment on above: Order Comment: Speci men Type: BLOOD SPECIMENOrdering Facility: [facility] Address: [address] [place] [address] Performed By: #### 5 7021-8 ####[facility] LABORATORYCLIA [id number] [place] [address] [place] Immature granulocytes/100 WBC (Bld) 0.4 % Normal [facility] Comment on above: Order Comment: Speci men Type: BLOOD SPECIMENOrdering Facility: [facility] Address: [address] [place] [address] Performed By: #### 5 7021-8 ####[facility] LABORATORYCLIA [id number] [place] [address] [place] Lymphocytes (Bld) [#/Vol] 1.42 10*3/uL Normal 1.00-4.00 [facility] Comment on above: Order Comment: Speci men Type: BLOOD SPECIMENOrdering Facility: [facility] Address: [address] [place] [address] Performed By: #### 5 7021-8 ####[facility] LABORATORYCLIA [id number] [address] [place] Lymphocytes/100 WBC (Bld) 19.7 % Normal [facility] Comment on above: Order Comment: Speci men Type: BLOOD SPECIMENOrdering Facility: [facility] Address: [address] [place] [address] Performed By: #### 5 7021-8 ####[facility] LABORATORYCLIA [id number] [place] [address] [place] MCH (RBC) [Entitic mass] 27.8 pg Normal 26.0-34.0 [facility] Comment on above: Order Comment: Speci men Type: BLOOD SPECIMENOrdering Facility: [facility] Address: [address] [place] [address] Performed By: #### 5 7021-8 ####[facility] LABORATORYCLIA [id number] [place] [address] [place] MCHC (RBC) [Mass/Vol] 33.1 g/dL Normal 30.5-36.0 [facility] Comment on above: Order Comment: Speci men Type: BLOOD SPECIMENOrdering Facility: [facility] Address: [address] [place] [address] Performed By: #### 5 7021-8 ####[facility] LABORATORYCLIA [id number] [place] [address] [place] MCV (RBC) [Entitic vol] 84.2 fL Normal 80.0-100.[address] [facility] Comment on above: Order Comment: Speci men Type: BLOOD SPECIMENOrdering Facility: [facility] Address: [address] [place] [address] Performed By: #### 5 7021-8 ####[facility] LABORATORYCLIA [id number] [place] [address] [place] Monocytes (Bld) [#/Vol] 0.83 10*3/uL Normal <0.87 [facility] Comment on above: Order Comment: Speci men Type: BLOOD SPECIMENOrdering Facility: [facility] Address: [address] [place] [address] Performed By: #### 5 7021-8 ####[facility] LABORATORYCLIA [id number] [place] [address] [place] Monocytes/100 WBC (Bld) 11.5 % Normal [facility] Comment on above: Order Comment: Speci men Type: BLOOD SPECIMENOrdering Facility: [facility] Address: [address] [place] [address] Performed By: #### 5 7021-8 ####[facility] LABORATORYCLIA [id number] [place] [address] [place] Neutrophils (Bld) [#/Vol] 4.54 10*3/uL Normal 1.45-7.50 [facility] Comment on above: Order Comment: Speci men Type: BLOOD SPECIMENOrdering Facility: [facility] Address: [address] [place] [address] Performed By: #### 5 7021-8 ####[facility] LABORATORYCLIA [id number] [place] [address] [place] Neutrophils/100 WBC (Bld) 63.3 % Normal [facility] Comment on above: Order Comment: Speci men Type: BLOOD SPECIMENOrdering Facility: [facility] Address: [address] [place] [address] Performed By: #### 5 7021-8 ####[facility] LABORATORYCLIA [id number] [place] [address] [place] Nucleated RBC (Bld) [#/Vol] 10*3/uL Normal <0.01 [facility] Comment on above: Order Comment: Speci men Type: BLOOD SPECIMENOrdering Facility: [facility] Address: [address] [place] [address] Performed By: #### 5 7021-8 ####[facility] LABORATORYCLIA [id number] [place] [id number] [place] Nucleated RBC/100 WBC (Bld) [Ratio] 0.0 /100 WBC Normal [facility] Comment on above: Order Comment: Speci men Type: BLOOD SPECIMENOrdering Facility: [facility] Address: [address] [place] [address] Performed By: #### 5 7021-8 ####[facility] LABORATORYCLIA [id number] [place] [address] [place] Platelet mean volume (Bld) [Entitic vol] 9.8 fL Normal 9.0-12.7 [facility] Comment on above: Order Comment: Speci men Type: BLOOD SPECIMENOrdering Facility: [facility] Address: [address] [place] [address] Performed By: #### 5 7021-8 ####[facility] LABORATORYCLIA [id number] [address] [place] Platelets (Bld) [#/Vol] 112 10*3/uL Low 150-400 [facility] Comment on above: Order Comment: Speci men Type: BLOOD SPECIMENOrdering Facility: [facility] Address: [address] [place] [address] Result Comment: No c lot detected. Performed By: #### 5 7021-8 ####[facility] LABORATORYCLIA [id number] [place] [address] [place] RBC (Bld) [#/Vol] 4.49 10*6/uL Normal 3.90-5.20 [facility] Comment on above: Order Comment: Speci men Type: BLOOD SPECIMENOrdering Facility: [facility] Address: [address] [place] [address] Performed By: #### 5 7021-8 ####[facility] LABORATORYCLIA [id number] [place] [id number] [place] WBC (Bld) [#/Vol] 7.19 10*3/uL Normal 3.70-11.00 [facility] Comment on above: Order Comment: Speci men Type: BLOOD SPECIMENOrdering Facility: [facility] Address: [address] [place] [address] Performed By: #### 5 7021-8 ####[facility] LABORATORYCLIA [id number] [place] [id number] [place] Magnesium SerPl-ncon 09-18 Magnesium [Mass/Vol] 1.8 mg/dL Normal 1.6-2.6 [facility] Comment on above: Order Comment: Speci men Type: BLOOD SPECIMENOrdering Facility: [facility] Address: [address] [place] [address] Performed By: #### 2 4321-2, 29940-9, 3083-1 ####[facility] LABORATORYCLIA [id number] [place] [id number] [place] Urate SerPl-ncon Urate [Mass/Vol] 6.8 mg/dL High 2.6-6.0 [facility] Comment on above: Order Comment: Speci men Type: BLOOD SPECIMENOrdering Facility: [facility] Address: [address] [place] [address] Result Comment: Linn ents receiving Metamizole prior to venipuncture, may have falsely depressed results. Performed By: #### 2 4321-2, 96231-1, 3083-1 ####[facility] LABORATORYCLIA [id number] [place] [id number] [place] Basic metabolic 2000 panelon 09-18-2023 Anion gap [Moles/Vol] 8 mmol/L Normal 5-16 [facility] Comment on above: Order Comment: Speci men Type: BLOOD SPECIMENOrdering Facility: [facility] Address: [address] [place] [address] Performed By: #### 2 4321-2, ####[facility] LABORATORYCLIA [id number] [place] [id number] [place] Calcium [Mass/Vol] 10.6 mg/dL High 8.5-10.5 [facility] Comment on above: Order Comment: Speci men Type: BLOOD SPECIMENOrdering Facility: [facility] Address: [address] [place] [id number] Performed By: #### 2 432-2, ####[facility] LABORATORYCLIA [id number] [place] [id number] [place] Chloride [Moles/Vol] 96 mmol/L Low 98-107 [facility] Comment on above: Order Comment: Speci men Type: BLOOD SPECIMENOrdering Facility: [facility] Address: [address] [place] [address] Performed By: #### 2 4322, ####[facility] LABORATORYCLIA [id number] [place] [address] [place] CO2 [Moles/Vol] 32 mmol/L Normal 21-32 [facility] Comment on above: Order Comment: Speci men Type: BLOOD SPECIMENOrdering Facility: [facility] Address: [address] [place] [address] Performed By: #### 2 2, ####[facility] LABORATORYCLIA [id number] [place] [id number] [place] Creatinine [Mass/Vol] 0.70 mg/dL Normal 0.51-0.95 [facility] Comment on above: Order Comment: Speci men Type: BLOOD SPECIMENOrdering Facility: [facility] Address: [address] [place], [place] [id number] Result Comment: Linn ents receiving either N-Acetylcysteine (NAC) or Metamizole prior to venipuncture, may have falsely depressed results. Performed By: #### 2 432-2, ####[facility] LABORATORYCLIA [id number] [place] [id number] [place] Creatinine and Glomerular filtration rate.predicted panel (S/P/Bld) 85 mL/min/1.73m??? Normal >=60 [facility] Comment on above: Order Comment: Brady smith Type: BLOOD SPECIMENOrdering Facility: [facility] Address: [address] [place] [address] Result Comment: Esme mated Glomerular Filtration Rate [...] actual GFR. Performed By: #### 2 4321-2, 06105-1 ####[facility] LABORATORYCLIA [id number] [place] [id number] [place] Glucose [Mass/Vol] 84 mg/dL Normal 70-100 [facility] Comment on above: Order Comment: Brady smith Type: BLOOD SPECIMENOrdering Facility: [facility] Address: [address] [place] [address] Result Comment: The [place] [employer] (ADA) provides guidance for cutoff [...] Standards of Medical Care in Diabetes 2016, [place] [employer]. Diabetes Care. 2016.39(Suppl 1).Results may be falsely elevated after the administration of Sulfapyridine.Results may be falsely depressed after the administration of Sulfasalazine. Performed By: #### 2 4321-2, 94482-4 ####[facility] LABORATORYCLIA [id number] [place] [id number] [place] Potassium [Moles/Vol] 3.6 mmol/L Normal 3.5-5.1 [facility] Comment on above: Order Comment: Speci men Type: BLOOD SPECIMENOrdering Facility: [facility] Address: [facility] [place] [address] Performed By: #### 2 4321-2, ####[facility] LABORATORYCLIA [id number] [place] [address] [place] Sodium [Moles/Vol] 136 mmol/L Normal 136-145 [facility] Comment on above: Order Comment: Speci men Type: BLOOD SPECIMENOrdering Facility: [facility] Address: [address] [place] [address] Performed By: #### 2 4321-2, ####[facility] LABORATORYCLIA [id number] [place] [id number] [place] Urea nitrogen [Mass/Vol] 7 mg/dL Normal 7-26 [facility] Comment on above: Order Comment: Speci men Type: BLOOD SPECIMENOrdering Facility: [facility] Address: [address] [place] [address] Performed By: #### 2 4321-2, ####[facility] LABORATORYCLIA [id number] [place] [address] [place] CBC W Auto Differential pane l (Bld)on 09-18-2023 Basophils (Bld) [#/Vol] 10*3/uL Normal <0.11 [facility] Comment on above: Order Comment: Speci men Type: BLOOD SPECIMENOrdering Facility: [facility] Address: [address] [place] [address] Performed By: #### 5 7021-8 ####[facility] LABORATORYCLIA [id number] [address] [place] Basophils/100 WBC (Bld) 0.3 % Normal [facility] Comment on above: Order Comment: Speci men Type: BLOOD SPECIMENOrdering Facility: [facility] Address: [address] [place] [address] Performed By: #### 5 7021-8 ####[facility] LABORATORYCLIA [id number] [place] [address] [place] Differential cell count method Nom (Bld) Auto Normal [facility] Comment on above: Order Comment: Speci men Type: BLOOD SPECIMENOrdering Facility: [facility] Address: [address] [place] [address] Performed By: #### 5 7021-8 ####[facility] LABORATORYCLIA [id number] [place] [address] [place] Eosinophils (Bld) [#/Vol] 0.40 10*3/uL Normal <0.46 [facility] Comment on above: Order Comment: Speci men Type: BLOOD SPECIMENOrdering Facility: [facility] Address: [address] [place] [address] Performed By: #### 5 7021-8 ####[facility] LABORATORYCLIA [id number] [address] [place] Eosinophils/100 WBC (Bld) 6.2 % Normal [facility] Comment on above: Order Comment: Speci men Type: BLOOD SPECIMENOrdering Facility: [facility] Address: [address] [place] [address] Performed By: #### 5 7021-8 ####[facility] LABORATORYCLIA [id number] [address] [place] Erythrocyte distribution width (RBC) [Ratio] 13.2 % Normal 11.5-15.0 [facility] Comment on above: Order Comment: Speci men Type: BLOOD SPECIMENOrdering Facility: [facility] Address: [address] [place] [address] Performed By: #### 5 7021-8 ####[facility] LABORATORYCLIA [id number] [address] [place] Hematocrit (Bld) [Volume fraction] 39.4 % Normal 36.0-46.0 [facility] Comment on above: Order Comment: Speci men Type: BLOOD SPECIMENOrdering Facility: [facility] Address: [address] [place] [address] Performed By: #### 5 7021-8 ####[facility] LABORATORYCLIA [id number] [place] [address] [place] Hemoglobin (Bld) [Mass/Vol] 13.2 g/dL Normal 11.5-15.5 [facility] Comment on above: Order Comment: Speci men Type: BLOOD SPECIMENOrdering Facility: [facility] Address: [address] [place] [address] Performed By: #### 5 7021-8 ####[facility] LABORATORYCLIA [id number] [place] [address] [place] Immature granulocytes (Bld) [#/Vol] 0.03 10*3/uL Normal <0.10 [facility] Comment on above: Order Comment: Speci men Type: BLOOD SPECIMENOrdering Facility: [facility] Address: [address] [place] [address] Performed By: #### 5 7021-8 ####[facility] LABORATORYCLIA [id number] [place] [address] [place] Immature granulocytes/100 WBC (Bld) 0.5 % Normal [facility] Comment on above: Order Comment: Speci men Type: BLOOD SPECIMENOrdering Facility: [facility] Address: [address] [place] [address] Performed By: #### 5 7021-8 ####[facility] LABORATORYCLIA [id number] [place] [address] [place] Lymphocytes (Bld) [#/Vol] 1.57 10*3/uL Normal 1.00-4.00 [facility] Comment on above: Order Comment: Speci men Type: BLOOD SPECIMENOrdering Facility: [facility] Address: [address] [place] [address] Performed By: #### 5 7021-8 ####[facility] LABORATORYCLIA [id number] [place] [id number] [place] Lymphocytes/100 WBC (Bld) 24.5 % Normal [facility] Comment on above: Order Comment: Speci men Type: BLOOD SPECIMENOrdering Facility: [facility] Address: [address] [place] [address] Performed By: #### 5 7021-8 ####[facility] LABORATORYCLIA [id number] [place] [address] [place] [facility] MCH (RBC) [Entitic mass] 27.8 pg Normal 26.0-34.0 [facility] Comment on above: Order Comment: Speci men Type: BLOOD SPECIMENOrdering Facility: [facility] Address: [address] [place] [address] Performed By: #### 5 7021-8 ####[facility] LABORATORYCLIA [id number] [address] [place] MCHC (RBC) [Mass/Vol] 33.5 g/dL Normal 30.5-36.0 [facility] Comment on above: Order Comment: Speci men Type: BLOOD SPECIMENOrdering Facility: [facility] Address: [address] [place] [address] Performed By: #### 5 7021-8 ####[facility] LABORATORYCLIA [id number] [address] [place] MCV (RBC) [Entitic vol] 83.1 fL Normal 80.0-100.0 [facility] Comment on above: Order Comment: Speci men Type: BLOOD SPECIMENOrdering Facility: [facility] Address: [address] [place] [address] Performed By: #### 5 7021-8 ####[facility] LABORATORYCLIA [id number] [address] [place] Monocytes (Bld) [#/Vol] 0.74 10*3/uL Normal <0.87 [facility] Comment on above: Order Comment: Speci men Type: BLOOD SPECIMENOrdering Facility: [facility] Address: [address] [place] [address] Performed By: #### 5 7021-8 ####[facility] LABORATORYCLIA [id number] [place] [address] [place] Monocytes/100 WBC (Bld) 11.5 % Normal [facility] Comment on above: Order Comment: Speci men Type: BLOOD SPECIMENOrdering Facility: [facility] Address: [address] [place] [address] Performed By: #### 5 7021-8 ####[facility] LABORATORYCLIA [id number] [place] [id number] [place] Neutrophils (Bld) [#/Vol] 3.65 10*3/uL Normal 1.45-7.50 [facility] Comment on above: Order Comment: Speci men Type: BLOOD SPECIMENOrdering Facility: [facility] Address: [address] [place] [address] Performed By: #### 5 7021-8 ####[facility] LABORATORYCLIA [id number] [address] [place] Neutrophils/100 WBC (Bld) 57.0 % Normal [facility] Comment on above: Order Comment: Speci men Type: BLOOD SPECIMENOrdering Facility: [facility] Address: [address] [place] [address] Performed By: #### 5 7021-8 ####[facility] LABORATORYCLIA [id number] [place] [address] [place] Nucleated RBC (Bld) [#/Vol] 10*3/uL Normal <0.01 [facility] Comment on above: Order Comment: Speci men Type: BLOOD SPECIMENOrdering Facility: [facility] Address: [address] [place] [address] Performed By: #### 5 7021-8 ####[facility] LABORATORYCLIA [id number] [place] [id number] [place] Nucleated RBC/100 WBC (Bld) [Ratio] 0.0 /100 WBC Normal [facility] Comment on above: Order Comment: Speci men Type: BLOOD SPECIMENOrdering Facility: [facility] Address: [address] [place] [address] Performed By: #### 5 7021-8 ####[facility] LABORATORYCLIA [id number] [address] [place] Platelet mean volume (Bld) [Entitic vol] 10.1 fL Normal 9.0-12.7 [facility] Comment on above: Order Comment: Speci men Type: BLOOD SPECIMENOrdering Facility: [facility] Address: [address] [place] [address] Performed By: #### 5 7021-8 ####[facility] LABORATORYCLIA [id number] [place] [address] [facility] [place] Platelets (Bld) [#/Vol] 117 10*3/uL Low 150-400 [facility] Comment on above: Order Comment: Speci men Type: BLOOD SPECIMENOrdering Facility: [facility] Address: [address] [place] [address] Result Comment: No c lot detected. Performed By: #### 5 7021-8 ####[facility] LABORATORYCLIA [id number] [place] [address] [place] RBC (Bld) [#/Vol] 4.74 10*6/uL Normal 3.90-5.20 [facility] Comment on above: Order Comment: Speci men Type: BLOOD SPECIMENOrdering Facility: [facility] Address: [address] [place] [address] Performed By: #### 5 7021-8 ####[facility] LABORATORYCLIA [id number] [place] [address] [facility] [place] WBC (Bld) [#/Vol] 6.41 10*3/uL Normal 3.70-11.00 [facility] Comment on above: Order Comment: Speci men Type: BLOOD SPECIMENOrdering Facility: [facility] Address: [address] [place] [address] Performed By: #### 5 7021-8 ####[facility] LABORATORYCLIA [id number] [place] [id number] [facility] Magnesium SerPl-mCncon 09-17 Magnesium [Mass/Vol] 1.9 mg/dL Normal 1.6-2.6 [facility] Comment on above: Order Comment: Speci men Type: BLOOD SPECIMENOrdering Facility: [facility] Address: [address] [place] [address] Performed By: #### 2 4321-2, ####[facility] LABORATORYCLIA [id number] [place] [address] [place] [place] THERAP[place] NTon 09-18-2023 THERAPY NT Normal [facility] XR CHEST 1V FRONTALon 2023 XR CHEST 1V FRONTAL Normal [facility] Basic metabolic 2000 panelon 09-17-2023 Anion gap [Moles/Vol] 7 mmol/L Normal 5-16 [facility] Comment on above: Order Comment: Speci men Type: BLOOD SPECIMENOrdering Facility: [facility] Address: [address] [place] [address] Performed By: #### 2 4321-2, ####[facility] LABORATORYCLIA [id number] [place] [id number] [place] Calcium [Mass/Vol] 10.1 mg/dL Normal 8.5-10.5 [facility] Comment on above: Order Comment: Speci men Type: BLOOD SPECIMENOrdering Facility: [facility] Address: [address] [place] [address] Performed By: #### 2 4321-2, ####[facility] LABORATORYCLIA [id number] [place] [address] [place] Chloride [Moles/Vol] 102 mmol/L Normal 98-107 [facility] Comment on above: Order Comment: Speci men Type: BLOOD SPECIMENOrdering Facility: [facility] Address: [address] [place] [address] Performed By: #### 2 4321-2, ####[facility] LABORATORYCLIA [id number] [place] [address] [place] CO2 [Moles/Vol] 29 mmol/L Normal 21-32 [facility] Comment on above: Order Comment: Speci men Type: BLOOD SPECIMENOrdering Facility: [facility] Address: [address] [place] [address] Performed By: #### 2 4321-2, ####[facility] LABORATORYCLIA [id number] [place] [id number] [place] Creatinine [Mass/Vol] 0.69 mg/dL Normal 0.51-0.95 [facility] Comment on above: Order Comment: Brady smith Type: BLOOD SPECIMENOrdering Facility: [facility] Address: [address] [place] [address] Result Comment: Linn ents receiving either N-Acetylcysteine (NAC) or Metamizole prior to venipuncture, may have falsely depressed results. Performed By: #### 2 432-2, ####[facility] LABORATORYCLIA [id number] [address] Creatinine and Glomerular filtration rate.predicted panel (S/P/Bld) 86 mL/min/1.73m??? Normal >=60 [facility] Comment on above: Order Comment: Brady smith Type: BLOOD SPECIMENOrdering Facility: [facility] Address: [address] [place] [address] Result Comment: Esme mated Glomerular Filtration Rate [...] actual GFR. Performed By: #### 2 4321-2, ####[facility] LABORATORYCLIA [id number] [place] [id number] [place] Glucose [Mass/Vol] 92 mg/dL Normal 70-100 [facility] Comment on above: Order Comment: Brady smith Type: BLOOD SPECIMENOrdering Facility: [facility] Address: [address] [place] [address] Result Comment: The [place] [employer] (ADA) provides guidance for cutoff [...] Standards of Medical Care in Diabetes 2016, [place] [employer]. Diabetes Care. 2016.39(Suppl 1).Results may be falsely elevated after the administration of Sulfapyridine.Results may be falsely depressed after the administration of Sulfasalazine. Performed By: #### 2 43203-11, ####[facility] LABORATORYCLIA [id number] [place] [address] [place] Potassium [Moles/Vol] 3.2 mmol/L Low 3.5-5.1 [facility] Comment on above: Order Comment: Speci men Type: BLOOD SPECIMENOrdering Facility: [facility] Address: [address] [place] [address] Performed By: #### 2 4320-04, ####[facility] LABORATORYCLIA [id number] [place] [address] [place] Sodium [Moles/Vol] 138 mmol/L Normal 136-145 [facility] Comment on above: Order Comment: Speci men Type: BLOOD SPECIMENOrdering Facility: [facility] Address: [address] [place] [address] Performed By: #### 2 4320-04, ####[facility] LABORATORYCLIA [id number] [place] [address] [place] Urea nitrogen [Mass/Vol] 6 mg/dL Low 7-26 [facility] Comment on above: Order Comment: Speci men Type: BLOOD SPECIMENOrdering Facility: [facility] Address: [address] [place] [address] Performed By: #### 2 4320-04, ####[facility] LABORATORYCLIA [id number] [place] [id number] [place] CASE MANAGEMon 09-17-2023 CASE MANAGEM Normal [facility] CBC W Auto Differential pane l (Bld)on 09-17-2023 Basophils (Bld) [#/Vol] 10*3/uL Normal <0.[address] [facility] Comment on above: Order Comment: Speci men Type: BLOOD SPECIMENOrdering Facility: [facility] Address: [address] [place] [address] Performed By: #### 5 7021-8 ####[facility] LABORATORYCLIA [id number] [place] [id number] [place] Basophils/100 WBC (Bld) 0.3 % Normal [facility] Comment on above: Order Comment: Speci men Type: BLOOD SPECIMENOrdering Facility: [facility] Address: [address] [place] [address] Performed By: #### 5 7021-8 ####[facility] LABORATORYCLIA [id number] [address] [place] Differential cell count method Nom (Bld) Auto Normal [facility] Comment on above: Order Comment: Speci men Type: BLOOD SPECIMENOrdering Facility: [facility] Address: [address] [place] [address] Performed By: #### 5 7021-8 ####[facility] LABORATORYCLIA [id number] [place] [id number] [place] Eosinophils (Bld) [#/Vol] 0.42 10*3/uL Normal <0.46 [facility] Comment on above: Order Comment: Speci men Type: BLOOD SPECIMENOrdering Facility: [facility] Address: [address] [place] [address] Performed By: #### 5 7021-8 ####[facility] LABORATORYCLIA [id number] [place] [id number] [place] Eosinophils/100 WBC (Bld) 6.8 % Normal [facility] Comment on above: Order Comment: Speci men Type: BLOOD SPECIMENOrdering Facility: [facility] Address: [address] [place] [address] Performed By: #### 5 7021-8 ####[facility] LABORATORYCLIA [id number] [place] [address] [place] Erythrocyte distribution width (RBC) [Ratio] 13.3 % Normal 11.5-15.0 [facility] Comment on above: Order Comment: Speci men Type: BLOOD SPECIMENOrdering Facility: [facility] Address: [address] [place] [address] Performed By: #### 5 7021-8 ####[facility] LABORATORYCLIA [id number] [place] [address] [place] Hematocrit (Bld) [Volume fraction] 36.5 % Normal 36.0-46.0 [facility] Comment on above: Order Comment: Speci men Type: BLOOD SPECIMENOrdering Facility: [facility] Address: [address] [place] [address] Performed By: #### 5 7021-8 ####[facility] LABORATORYCLIA [id number] [place] [address] [place] Hemoglobin (Bld) [Mass/Vol] 12.4 g/dL Normal 11.5-15.5 [facility] Comment on above: Order Comment: Speci men Type: BLOOD SPECIMENOrdering Facility: [facility] Address: [address] [place] [address] Performed By: #### 5 7021-8 ####[facility] LABORATORYCLIA [id number] [place] [address] [place] Immature granulocytes (Bld) [#/Vol] 10*3/uL Normal <0.10 [facility] Comment on above: Order Comment: Speci men Type: BLOOD SPECIMENOrdering Facility: [facility] Address: [address] [place] [address] Performed By: #### 5 7021-8 ####[facility] LABORATORYCLIA [id number] [address] [place] Immature granulocytes/100 WBC (Bld) 0.3 % Normal [facility] Comment on above: Order Comment: Speci men Type: BLOOD SPECIMENOrdering Facility: [facility] Address: [address] [place] [address] Performed By: #### 5 7021-8 ####[facility] LABORATORYCLIA [id number] [place] [address] [place] Lymphocytes (Bld) [#/Vol] 1.72 10*3/uL Normal 1.00-4.00 [facility] Comment on above: Order Comment: Speci men Type: BLOOD SPECIMENOrdering Facility: [facility] Address: [address] [place] [address] Performed By: #### 5 7021-8 ####[facility] LABORATORYCLIA [id number] [address] Lymphocytes/100 WBC (Bld) 27.7 % Normal [facility] Comment on above: Order Comment: Speci men Type: BLOOD SPECIMENOrdering Facility: [facility] Address: [address] [place] [address] Performed By: #### 5 7021-8 ####[facility] LABORATORYCLIA [id number] [place] [address] [place] MCH (RBC) [Entitic mass] 28.2 pg Normal 26.0-34.0 [facility] Comment on above: Order Comment: Speci men Type: BLOOD SPECIMENOrdering Facility: [facility] Address: [address] [place] [address] Performed By: #### 5 7021-8 ####[facility] LABORATORYCLIA [id number] [address] [place] MCHC (RBC) [Mass/Vol] 34.0 g/dL Normal 30.5-36.0 [facility] Comment on above: Order Comment: Speci men Type: BLOOD SPECIMENOrdering Facility: [facility] Address: [address] [place] [address] Performed By: #### 5 7021-8 ####[facility] LABORATORYCLIA [id number] [place] [id number] [place] MCV (RBC) [Entitic vol] 83.0 fL Normal 80.0-100.0 [facility] Comment on above: Order Comment: Speci men Type: BLOOD SPECIMENOrdering Facility: [facility] Address: [address] [place] [address] Performed By: #### 5 7021-8 ####[facility] LABORATORYCLIA [id number] [place] [address] [place] Monocytes (Bld) [#/Vol] 0.65 10*3/uL Normal <0.87 [facility] Comment on above: Order Comment: Speci men Type: BLOOD SPECIMENOrdering Facility: [facility] Address: [address] [place] [address] Performed By: #### 5 7021-8 ####[facility] LABORATORYCLIA [id number] [address] Monocytes/100 WBC (Bld) 10.5 % Normal [facility] Comment on above: Order Comment: Speci men Type: BLOOD SPECIMENOrdering Facility: [facility] Address: [address] [place] [address] Performed By: #### 5 7021-8 ####[facility] LABORATORYCLIA [id number] [place] [address] [place] Neutrophils (Bld) [#/Vol] 3.37 10*3/uL Normal 1.45-7.50 [facility] Comment on above: Order Comment: Speci men Type: BLOOD SPECIMENOrdering Facility: [facility] Address: [address] [place] [address] Performed By: #### 5 7021-8 ####[facility] LABORATORYCLIA [id number] [place] [address] [place] Neutrophils/100 WBC (Bld) 54.4 % Normal [facility] Comment on above: Order Comment: Speci men Type: BLOOD SPECIMENOrdering Facility: [facility] Address: [address] [place] [address] Performed By: #### 5 7021-8 ####[facility] LABORATORYCLIA [id number] [address] [place] Nucleated RBC (Bld) [#/Vol] 10*3/uL Normal <0.01 [facility] Comment on above: Order Comment: Speci men Type: BLOOD SPECIMENOrdering Facility: [facility] Address: [address] [place] [address] Performed By: #### 5 7021-8 ####[facility] LABORATORYCLIA [id number] [place] [id number] [place] Nucleated RBC/100 WBC (Bld) [Ratio] 0.0 /100 WBC Normal [facility] Comment on above: Order Comment: Speci men Type: BLOOD SPECIMENOrdering Facility: [facility] Address: [address] [place] [address] Performed By: #### 5 7021-8 ####[facility] LABORATORYCLIA [id number] [place] [address] [place] Platelet mean volume (Bld) [Entitic vol] 9.5 fL Normal 9.0-12.7 [facility] Comment on above: Order Comment: Speci men Type: BLOOD SPECIMENOrdering Facility: [facility] Address: [address] [place] [address] Performed By: #### 5 7021-8 ####[facility] LABORATORYCLIA [id number] [address] [place] Platelets (Bld) [#/Vol] 115 10*3/uL Low 150-400 [facility] Comment on above: Order Comment: Speci men Type: BLOOD SPECIMENOrdering Facility: [facility] Address: [address] [place] [address] Result Comment: Resu lts checked and verified.No clot detected. Performed By: #### 5 7021-8 ####[facility] LABORATORYCLIA [id number] [place] [address] [place] RBC (Bld) [#/Vol] 4.40 10*6/uL Normal 3.90-5.20 [facility] Comment on above: Order Comment: Speci men Type: BLOOD SPECIMENOrdering Facility: [facility] Address: [address] [place] [address] Performed By: #### 5 7021-8 ####[facility] LABORATORYCLIA [id number] [place] [id number] [place] WBC (Bld) [#/Vol] 6.20 10*3/uL Normal 3.70-11.00 [facility] Comment on above: Order Comment: Speci men Type: BLOOD SPECIMENOrdering Facility: [facility] Address: [address] [place] [address] Performed By: #### 5 7021-8 ####[facility] LABORATORYCLIA [id number] [place] [id number] [place] Magnesium SerPl-mCncon 09-16 Magnesium [Mass/Vol] 1.4 mg/dL Low 1.6-2.6 [facility] Comment on above: Order Comment: Speci men Type: BLOOD SPECIMENOrdering Facility: [facility] Address: [address] [place] [address] Performed By: #### 2 4321-2, 90115-2 ####[facility] LABORATORYCLIA [id number] [place] [id number] [place] THERAPY NTon 09-17-2023 THERAPY NT Normal [facility] THERAPY NT Normal [facility] Basic metabolic 2000 panelon 09-16-2023 Anion gap [Moles/Vol] mmol/L Low 5-16 [facility] Comment on above: Order Comment: Speci men Type: BLOOD SPECIMENOrdering Facility: [facility] Address: [address] [place] [address] Performed By: #### 2 4321-2 ####[facility] LABORATORYCLIA [id number] [place] [id number] [place] Calcium [Mass/Vol] 9.8 mg/dL Normal 8.5-10.5 [facility] Comment on above: Order Comment: Speci men Type: BLOOD SPECIMENOrdering Facility: [facility] Address: [address] [place] [address] Performed By: #### 2 4321-2 ####[facility] LABORATORYCLIA [id number] [place] [id number] [place] Chloride [Moles/Vol] 112 mmol/L High 98-107 [facility] Comment on above: Order Comment: Speci men Type: BLOOD SPECIMENOrdering Facility: [facility] Address: [address] [place] [address] Performed By: #### 2 4321-2 ####[facility] LABORATORYCLIA [id number] [place] [address] [place] CO2 [Moles/Vol] 26 mmol/L Normal 21-32 [facility] Comment on above: Order Comment: Speci men Type: BLOOD SPECIMENOrdering Facility: [facility] Address: [address] [place] [address] Performed By: #### 2 4321-2 ####[facility] LABORATORYCLIA [id number] [place] [address] [place] Creatinine [Mass/Vol] 0.62 mg/dL Normal 0.51-0.95 [facility] Comment on above: Order Comment: Speci men Type: BLOOD SPECIMENOrdering Facility: [facility] Address: [address] [place] [address] Result Comment: Linn ents receiving either N-Acetylcysteine (NAC) or Metamizole prior to venipuncture, may have falsely depressed results. Performed By: #### 2 4321-2 ####[facility] LABORATORYCLIA [id number] [place] [address] [place] Creatinine and Glomerular filtration rate.predicted panel (S/P/Bld) 88 mL/min/1.73m??? Normal >=60 [facility] Comment on above: Order Comment: Speci men Type: BLOOD SPECIMENOrdering Facility: [facility] Address: [address] [place] [address] Result Comment: Esme mated Glomerular Filtration Rate [...] actual GFR. Performed By: #### 2 4321-2 ####[facility] LABORATORYCLIA [id number] [place] [address] [place] Glucose [Mass/Vol] 75 mg/dL Normal 70-100 [facility] Comment on above: Order Comment: Specsamantha men Type: BLOOD SPECIMENOrdering Facility: [facility] Address: [address] [place] [address] Result Comment: The [place] [employer] (ADA) provides guidance for cutoff [...] Standards of Medical Care in Diabetes 2016, [place] [employer]. Diabetes Care. 2016.39(Suppl 1).Results may be falsely elevated after the administration of Sulfapyridine.Results may be falsely depressed after the administration of Sulfasalazine. Performed By: #### 2 4321-2 ####[facility] LABORATORYCLIA [id number] [place] [address] [place] Potassium [Moles/Vol] 3.8 mmol/L Normal 3.5-5.1 [facility] Comment on above: Order Comment: Speci men Type: BLOOD SPECIMENOrdering Facility: [facility] Address: [address] [place] [address] Performed By: #### 2 4321-2 ####[facility] LABORATORYCLIA [id number] [place] [id number] [place] Sodium [Moles/Vol] 140 mmol/L Normal 136-145 [facility] Comment on above: Order Comment: Speci men Type: BLOOD SPECIMENOrdering Facility: [facility] Address: [address] [place] [address] Performed By: #### 2 4321-2 ####[facility] LABORATORYCLIA [id number] [place] [id number] [place] Urea nitrogen [Mass/Vol] 7 mg/dL Normal 7-26 [facility] Comment on above: Order Comment: Speci men Type: BLOOD SPECIMENOrdering Facility: [facility] Address: [address] [place] [address] Performed By: #### 2 4321-2 ####[facility] LABORATORYCLIA [id number] [place] [id number] [place] CBC W Auto Differential pane l (Bld)on 09-16-2023 Basophils (Bld) [#/Vol] 10*3/uL Normal <0.11 [facility] Comment on above: Order Comment: Speci men Type: BLOOD SPECIMENOrdering Facility: [facility] Address: [address] [place] [address] Performed By: #### 5 7021-8 ####[facility] LABORATORYCLIA [id number] [place] [id number] [place] Basophils/100 WBC (Bld) 0.3 % Normal [facility] Comment on above: Order Comment: Speci men Type: BLOOD SPECIMENOrdering Facility: [facility] Address: [address] [place] [address] Performed By: #### 5 7021-8 ####[facility] LABORATORYCLIA [id number] [place] [id number] [place] Differential cell count method Nom (Bld) Auto Normal [facility] Comment on above: Order Comment: Speci men Type: BLOOD SPECIMENOrdering Facility: [facility] Address: [address] [place] [address] Performed By: #### 5 7021-8 ####[facility] LABORATORYCLIA [id number] [place] [id number] [place] Eosinophils (Bld) [#/Vol] 0.44 10*3/uL Normal <0.46 [facility] Comment on above: Order Comment: Speci men Type: BLOOD SPECIMENOrdering Facility: [facility] Address: [address] [place] [address] Performed By: #### 5 7021-8 ####[facility] LABORATORYCLIA [id number] [place] [address] [facility] [place] Eosinophils/100 WBC (Bld) 6.5 % Normal [facility] Comment on above: Order Comment: Speci men Type: BLOOD SPECIMENOrdering Facility: [facility] Address: [address] [place] [address] Performed By: #### 5 7021-8 ####[facility] LABORATORYCLIA [id number] [address] [place] Erythrocyte distribution width (RBC) [Ratio] 13.4 % Normal 11.5-15.0 [facility] Comment on above: Order Comment: Speci men Type: BLOOD SPECIMENOrdering Facility: [facility] Address: [address] [place] [address] Performed By: #### 5 7021-8 ####[facility] LABORATORYCLIA [id number] [place] [address] [place] Hematocrit (Bld) [Volume fraction] 37.6 % Normal 36.0-46.0 [facility] Comment on above: Order Comment: Speci men Type: BLOOD SPECIMENOrdering Facility: [facility] Address: [address] [place] [address] Performed By: #### 5 7021-8 ####[facility] LABORATORYCLIA [id number] [place] [address] [place] Hemoglobin (Bld) [Mass/Vol] 12.5 g/dL Normal 11.5-15.5 [facility] Comment on above: Order Comment: Speci men Type: BLOOD SPECIMENOrdering Facility: [facility] Address: [address] [place] [address] Performed By: #### 5 7021-8 ####[facility] LABORATORYCLIA [id number] [place] [address] [place] Immature granulocytes (Bld) [#/Vol] 0.03 10*3/uL Normal <0.10 [facility] Comment on above: Order Comment: Speci men Type: BLOOD SPECIMENOrdering Facility: [facility] Address: [address] [place] [address] Performed By: #### 5 7021-8 ####[facility] LABORATORYCLIA [id number] [place] [address] [place] Immature granulocytes/100 WBC (Bld) 0.4 % Normal [facility] Comment on above: Order Comment: Speci men Type: BLOOD SPECIMENOrdering Facility: [facility] Address: [address] [place] [address] Performed By: #### 5 7021-8 ####[facility] LABORATORYCLIA [id number] [place] [address] [place] Lymphocytes (Bld) [#/Vol] 2.24 10*3/uL Normal 1.00-4.00 [facility] Comment on above: Order Comment: Speci men Type: BLOOD SPECIMENOrdering Facility: [facility] Address: [address] [place] [address] Performed By: #### 5 7021-8 ####[facility] LABORATORYCLIA [id number] [place] [address] [place] Lymphocytes/100 WBC (Bld) 32.8 % Normal [facility] Comment on above: Order Comment: Speci men Type: BLOOD SPECIMENOrdering Facility: [facility] Address: [address] [place] [address] Performed By: #### 5 7021-8 ####[facility] LABORATORYCLIA [id number] [address] [place] MCH (RBC) [Entitic mass] 27.9 pg Normal 26.0-34.0 [facility] Comment on above: Order Comment: Speci men Type: BLOOD SPECIMENOrdering Facility: [facility] Address: [address] [place] [address] Performed By: #### 5 7021-8 ####[facility] LABORATORYCLIA [id number] [place] [address] [place] MCHC (RBC) [Mass/Vol] 33.2 g/dL Normal 30.5-36.0 [facility] Comment on above: Order Comment: Speci men Type: BLOOD SPECIMENOrdering Facility: [facility] Address: [address] [place] [address] Performed By: #### 5 7021-8 ####[facility] LABORATORYCLIA [id number] [address] [place] MCV (RBC) [Entitic vol] 83.9 fL Normal 80.0-100.0 [facility] Comment on above: Order Comment: Speci men Type: BLOOD SPECIMENOrdering Facility: [facility] Address: [address] [place] [address] Performed By: #### 5 7021-8 ####[facility] LABORATORYCLIA [id number] [address] [place] Monocytes (Bld) [#/Vol] 0.86 10*3/uL Normal <0.87 [facility] Comment on above: Order Comment: Speci men Type: BLOOD SPECIMENOrdering Facility: [facility] Address: [address] [place] [address] Performed By: #### 5 7021-8 ####[facility] LABORATORYCLIA [id number] [address] Monocytes/100 WBC (Bld) 12.6 % Normal [facility] Comment on above: Order Comment: Speci men Type: BLOOD SPECIMENOrdering Facility: [facility] Address: [address] [place] [address] Performed By: #### 5 7021-8 ####[facility] LABORATORYCLIA [id number] [place] [address] [place] Neutrophils (Bld) [#/Vol] 3.23 10*3/uL Normal 1.45-7.50 [facility] Comment on above: Order Comment: Speci men Type: BLOOD SPECIMENOrdering Facility: [facility] Address: [address] [place] [address] Performed By: #### 5 7021-8 ####[facility] LABORATORYCLIA [id number] [place] [address] [place] Neutrophils/100 WBC (Bld) 47.4 % Normal [facility] Comment on above: Order Comment: Speci men Type: BLOOD SPECIMENOrdering Facility: [facility] Address: [address] [place] [address] Performed By: #### 5 7021-8 ####[facility] LABORATORYCLIA [id number] [place] [address] [place] Nucleated RBC (Bld) [#/Vol] 10*3/uL Normal <0.01 [facility] Comment on above: Order Comment: Speci men Type: BLOOD SPECIMENOrdering Facility: [facility] Address: [address] [place] [address] Performed By: #### 5 7021-8 ####[facility] LABORATORYCLIA [id number] [place] [address] [place] Nucleated RBC/100 WBC (Bld) [Ratio] 0.0 /100 WBC Normal [facility] Comment on above: Order Comment: Speci men Type: BLOOD SPECIMENOrdering Facility: [facility] Address: [address] [place] [address] Performed By: #### 5 7021-8 ####[facility] LABORATORYCLIA [id number] [place] [address] [place] Platelet mean volume (Bld) [Entitic vol] 9.8 fL Normal 9.0-12.7 [facility] Comment on above: Order Comment: Speci men Type: BLOOD SPECIMENOrdering Facility: [facility] Address: [address] [place] [address] Performed By: #### 5 7021-8 ####[facility] LABORATORYCLIA [id number] [place] [id number] [facility] [place] Platelets (Bld) [#/Vol] 116 10*3/uL Low 150-400 [facility] Comment on above: Order Comment: Speci men Type: BLOOD SPECIMENOrdering Facility: [facility] Address: [address] [place] [address] Result Comment: No c lot detected. Performed By: #### 5 7021-8 ####[facility] LABORATORYCLIA [id number] [place] [id number] [place] RBC (Bld) [#/Vol] 4.48 10*6/uL Normal 3.90-5.20 [facility] Comment on above: Order Comment: Speci men Type: BLOOD SPECIMENOrdering Facility: [facility] Address: [address] [place] [address] Performed By: #### 5 7021-8 ####[facility] LABORATORYCLIA [id number] [place] [id number] [facility] [place] WBC (Bld) [#/Vol] 6.82 10*3/uL Normal 3.70-11.00 [facility] Comment on above: Order Comment: Speci men Type: BLOOD SPECIMENOrdering Facility: [facility] Address: [address] [place] [address] Performed By: #### 5 7021-8 ####[facility] LABORATORYCLIA [id number] [place] [id number] [place] THERAPY NTon 09-16-2023 THERAPY NT Normal [facility] THERAPY NT Normal [facility] Basic metabolic 2000 panelon 09-15-2023 Anion gap [Moles/Vol] 6 mmol/L Normal 5-16 [facility] Comment on above: Order Comment: Speci men Type: BLOOD SPECIMENOrdering Facility: [facility] Address: [address] [place] [address] Performed By: #### 2 4321-2 ####[facility] LABORATORYCLIA [id number] [place] [id number] [place] Calcium [Mass/Vol] 9.8 mg/dL Normal 8.5-10.5 [facility] Comment on above: Order Comment: Speci men Type: BLOOD SPECIMENOrdering Facility: [facility] Address: [address] [place] [address] Performed By: #### 2 4321-2 ####[facility] LABORATORYCLIA [id number] [place] [id number] [place] Chloride [Moles/Vol] 107 mmol/L Normal 98-107 [facility] Comment on above: Order Comment: Speci men Type: BLOOD SPECIMENOrdering Facility: [facility] Address: [address] [place] [address] Performed By: #### 2 4321-2 ####[facility] LABORATORYCLIA [id number] [place] [id number] [place] CO2 [Moles/Vol] 27 mmol/L Normal 21-32 [facility] Comment on above: Order Comment: Speci men Type: BLOOD SPECIMENOrdering Facility: [facility] Address: [address] [place] [address] Performed By: #### 2 4321-2 ####[facility] LABORATORYCLIA [id number] [place] [id number] [place] Creatinine [Mass/Vol] 0.60 mg/dL Normal 0.51-0.95 [facility] Comment on above: Order Comment: Speci men Type: BLOOD SPECIMENOrdering Facility: [facility] Address: [address] [place] [address] Result Comment: Linn ents receiving either N-Acetylcysteine (NAC) or Metamizole prior to venipuncture, may have falsely depressed results. Performed By: #### 2 4321-2 ####[facility] LABORATORYCLIA [id number] [place] [id number] [place] Creatinine and Glomerular filtration rate.predicted panel (S/P/Bld) 89 mL/min/1.73m??? Normal >=60 [facility] Comment on above: Order Comment: Brady smith Type: BLOOD SPECIMENOrdering Facility: [facility] Address: [address] [place] [address] Result Comment: Esme mated Glomerular Filtration Rate [...] actual GFR. Performed By: #### 2 4321-2 ####[facility] LABORATORYCLIA [id number] [place] [id number] [place] Glucose [Mass/Vol] 92 mg/dL Normal 70-100 [facility] Comment on above: Order Comment: Brady smith Type: BLOOD SPECIMENOrdering Facility: [facility] Address: [address] [place] [address] Result Comment: The [place] [employer] (ADA) provides guidance for cutoff [...] Standards of Medical Care in Diabetes 2016, [place] [employer]. Diabetes Care. 2016.39(Suppl 1).Results may be falsely elevated after the administration of Sulfapyridine.Results may be falsely depressed after the administration of Sulfasalazine. Performed By: #### 2 4321-2 ####[facility] LABORATORYCLIA [id number] [place] [id number] [place] Potassium [Moles/Vol] 3.6 mmol/L Normal 3.5-5.1 [facility] Comment on above: Order Comment: Speci men Type: BLOOD SPECIMENOrdering Facility: [facility] Address: [address] [place] [address] Performed By: #### 2 4321-2 ####[facility] LABORATORYCLIA [id number] [place] [id number] [place] Sodium [Moles/Vol] 140 mmol/L Normal 136-145 [facility] Comment on above: Order Comment: Speci men Type: BLOOD SPECIMENOrdering Facility: [facility] Address: [address] [place] [address] Performed By: #### 2 4321-2 ####[facility] LABORATORYCLIA [id number] [place] [address] [place] Urea nitrogen [Mass/Vol] 6 mg/dL Low 7-26 [facility] Comment on above: Order Comment: Speci men Type: BLOOD SPECIMENOrdering Facility: [facility] Address: [address] [place] [address] Performed By: #### 2 4321-2 ####[facility] LABORATORYCLIA [id number] [place] [id number] [place] CASE MGT INIT ASSESon 2023 CASE MGT INIT ASS Normal [facility] CBC W Auto Differential pane l (Bld)on 09-15-2023 Basophils (Bld) [#/Vol] 0.03 10*3/uL Normal <0.11 [facility] Comment on above: Order Comment: Speci men Type: BLOOD SPECIMENOrdering Facility: [facility] Address: [address] [place] [address] Performed By: #### 5 7021-8 ####[facility] LABORATORYCLIA [id number] [place] [address] [place] Basophils/100 WBC (Bld) 0.4 % Normal [facility] Comment on above: Order Comment: Speci men Type: BLOOD SPECIMENOrdering Facility: [facility] Address: [address] [place] [address] Performed By: #### 5 7021-8 ####[facility] LABORATORYCLIA [id number] [place] [address] [place] Differential cell count method Nom (Bld) Auto Normal [facility] Comment on above: Order Comment: Speci men Type: BLOOD SPECIMENOrdering Facility: [facility] Address: [address] [place] [address] Performed By: #### 5 7021-8 ####[facility] LABORATORYCLIA [id number] [place] [address] [place] Eosinophils (Bld) [#/Vol] 0.27 10*3/uL Normal <0.46 [facility] Comment on above: Order Comment: Speci men Type: BLOOD SPECIMENOrdering Facility: [facility] Address: [address] [place] [address] Performed By: #### 5 7021-8 ####[facility] LABORATORYCLIA [id number] [address] [place] Eosinophils/100 WBC (Bld) 3.3 % Normal [facility] Comment on above: Order Comment: Speci men Type: BLOOD SPECIMENOrdering Facility: [facility] Address: [address] [place] [address] Performed By: #### 5 7021-8 ####[facility] LABORATORYCLIA [id number] [address] [place] Erythrocyte distribution width (RBC) [Ratio] 13.2 % Normal 11.5-15.0 [facility] Comment on above: Order Comment: Speci men Type: BLOOD SPECIMENOrdering Facility: [facility] Address: [address] [place] [address] Performed By: #### 5 7021-8 ####[facility] LABORATORYCLIA [id number] [place] [address] [place] Hematocrit (Bld) [Volume fraction] 38.5 % Normal 36.0-46.0 [facility] Comment on above: Order Comment: Speci men Type: BLOOD SPECIMENOrdering Facility: [facility] Address: [address] [place] [address] Performed By: #### 5 7021-8 ####[facility] LABORATORYCLIA [id number] [place] [id number] [place] Hemoglobin (Bld) [Mass/Vol] 13.2 g/dL Normal 11.5-15.5 [facility] Comment on above: Order Comment: Speci men Type: BLOOD SPECIMENOrdering Facility: [facility] Address: [address] [place] [address] Performed By: #### 5 7021-8 ####[facility] LABORATORYCLIA [id number] [place] [id number] [place] Immature granulocytes (Bld) [#/Vol] 0.03 10*3/uL Normal <0.10 [facility] Comment on above: Order Comment: Speci men Type: BLOOD SPECIMENOrdering Facility: [facility] Address: [address] [place] [address] Performed By: #### 5 7021-8 ####[facility] LABORATORYCLIA [id number] [place] [address] [place] Immature granulocytes/100 WBC (Bld) 0.4 % Normal [facility] Comment on above: Order Comment: Speci men Type: BLOOD SPECIMENOrdering Facility: [facility] Address: [address] [place] [address] Performed By: #### 5 7021-8 ####[facility] LABORATORYCLIA [id number] [place] [address] [place] Lymphocytes (Bld) [#/Vol] 1.95 10*3/uL Normal 1.00-4.00 [facility] Comment on above: Order Comment: Speci men Type: BLOOD SPECIMENOrdering Facility: [facility] Address: [address] [place] [address] Performed By: #### 5 7021-8 ####[facility] LABORATORYCLIA [id number] [place] [address] [place] Lymphocytes/100 WBC (Bld) 23.6 % Normal [facility] Comment on above: Order Comment: Speci men Type: BLOOD SPECIMENOrdering Facility: [facility] Address: [address] [place] [address] Performed By: #### 5 7021-8 ####[facility] LABORATORYCLIA [id number] [place] [address] [place] MCH (RBC) [Entitic mass] 28.2 pg Normal 26.0-34.0 [facility] Comment on above: Order Comment: Speci men Type: BLOOD SPECIMENOrdering Facility: [facility] Address: [address] [place] [address] Performed By: #### 5 7021-8 ####[facility] LABORATORYCLIA [id number] [address] [place] MCHC (RBC) [Mass/Vol] 34.3 g/dL Normal 30.5-36.0 [facility] Comment on above: Order Comment: Speci men Type: BLOOD SPECIMENOrdering Facility: [facility] Address: [address] [place] [address] Performed By: #### 5 7021-8 ####[facility] LABORATORYCLIA [id number] [address] [place] MCV (RBC) [Entitic vol] 82.3 fL Normal 80.0-100.[address] [facility] Comment on above: Order Comment: Speci men Type: BLOOD SPECIMENOrdering Facility: [facility] Address: [address] [place] [address] Performed By: #### 5 7021-8 ####[facility] LABORATORYCLIA [id number] [address] [place] Monocytes (Bld) [#/Vol] 1.03 10*3/uL High <0.87 [facility] Comment on above: Order Comment: Speci men Type: BLOOD SPECIMENOrdering Facility: [facility] Address: [address] [place] [address] Performed By: #### 5 7021-8 ####[facility] LABORATORYCLIA [id number] [place] [id number] [place] Monocytes/100 WBC (Bld) 12.5 % Normal [facility] Comment on above: Order Comment: Speci men Type: BLOOD SPECIMENOrdering Facility: [facility] Address: [address] [place] [address] Performed By: #### 5 7021-8 ####[facility] LABORATORYCLIA [id number] [place] [address] [place] Neutrophils (Bld) [#/Vol] 4.94 10*3/uL Normal 1.45-7.50 [facility] Comment on above: Order Comment: Speci men Type: BLOOD SPECIMENOrdering Facility: [facility] Address: [address] [place] [address] Performed By: #### 5 7021-8 ####[facility] LABORATORYCLIA [id number] [address] [place] Neutrophils/100 WBC (Bld) 59.8 % Normal [facility] Comment on above: Order Comment: Speci men Type: BLOOD SPECIMENOrdering Facility: [facility] Address: [address] [place] [address] Performed By: #### 5 7021-8 ####[facility] LABORATORYCLIA [id number] [place] [address] [place] Nucleated RBC (Bld) [#/Vol] 10*3/uL Normal <0.01 [facility] Comment on above: Order Comment: Speci men Type: BLOOD SPECIMENOrdering Facility: [facility] Address: [address] [place] [address] Performed By: #### 5 7021-8 ####[facility] LABORATORYCLIA [id number] [place] [address] [place] Nucleated RBC/100 WBC (Bld) [Ratio] 0.0 /100 WBC Normal [facility] Comment on above: Order Comment: Speci men Type: BLOOD SPECIMENOrdering Facility: [facility] Address: [address] [place] [id number] Performed By: #### 5 7021-8 ####[facility] LABORATORYCLIA [id number] [place] [id number] [place] Platelet mean volume (Bld) [Entitic vol] 9.5 fL Normal 9.0-12.7 [facility] Comment on above: Order Comment: Speci men Type: BLOOD SPECIMENOrdering Facility: [facility] Address: [address] [place] [address] Performed By: #### 5 7021-8 ####[facility] LABORATORYCLIA [id number] [place] [id number] [facility] [place] Platelets (Bld) [#/Vol] 136 10*3/uL Low 150-400 [facility] Comment on above: Order Comment: Speci men Type: BLOOD SPECIMENOrdering Facility: [facility] Address: [address] [place] [address] Result Comment: No c lot detected. Performed By: #### 5 7021-8 ####[facility] LABORATORYCLIA [id number] [place] [id number] [place] RBC (Bld) [#/Vol] 4.68 10*6/uL Normal 3.90-5.20 [facility] Comment on above: Order Comment: Speci men Type: BLOOD SPECIMENOrdering Facility: [facility] Address: [address] [place] [address] Performed By: #### 5 7021-8 ####[facility] LABORATORYCLIA [id number] [place] [id number] [place] WBC (Bld) [#/Vol] 8.25 10*3/uL Normal 3.70-11.00 [facility] Comment on above: Order Comment: Speci men Type: BLOOD SPECIMENOrdering Facility: [facility] Address: [address] [place] [address] Performed By: #### 5 7021-8 ####[facility] LABORATORYCLIA [id number] [place] [id number] [place] NUTRITIONon 09-15-2023 NUTRITION Normal [facility] THERAPY NTon 09-15-2023 THERAPY NT Normal [facility] THERAPY NT Normal [facility] Ammonia Plas-sCncon 09-14-19 24 Ammonia (P) [Moles/Vol] 22 umol/L Normal 11-[address] [facility] Comment on above: Order Comment: Speci men Type: BLOOD SPECIMENOrdering Facility: [facility] Address: [address] [place] [address] Result Comment: Resu lts may be falsely depressed after the administration of Sulfapyridine. Results may be falsely elevated after the administration of Sulfasalazine. Performed By: #### 1 6362-6 ####[facility] LABORATORYCLIA [id number] [place] [address] [place] Basic metabolic 2000 panelon 09-14-2023 Anion gap [Moles/Vol] 10 mmol/L Normal 5-16 [facility] Comment on above: Order Comment: Speci men Type: BLOOD SPECIMENOrdering Facility: [facility] Address: [address] [place] [address] Performed By: #### 2 4321-2, ####[facility] LABORATORYCLIA [id number] [place] [address] [place] Calcium [Mass/Vol] 10.1 mg/dL Normal 8.5-10.5 [facility] Comment on above: Order Comment: Speci men Type: BLOOD SPECIMENOrdering Facility: [facility] Address: [address] [place] [address] Performed By: #### 2 4321-2, ####[facility] LABORATORYCLIA [id number] [place] [id number] [place] Chloride [Moles/Vol] 102 mmol/L Normal 98-107 [facility] Comment on above: Order Comment: Speci men Type: BLOOD SPECIMENOrdering Facility: [facility] Address: [address] [place], [place] [id number] Performed By: #### 2 4321-2, ####[facility] LABORATORYCLIA [id number] [place] [id number] [place] CO2 [Moles/Vol] 27 mmol/L Normal 21-32 [facility] Comment on above: Order Comment: Speci men Type: BLOOD SPECIMENOrdering Facility: [facility] Address: [address] [place] [address] Performed By: #### 2 4321-2, ####[facility] LABORATORYCLIA [id number] [place] [address] [place] Creatinine [Mass/Vol] 0.66 mg/dL Normal 0.51-0.95 [facility] Comment on above: Order Comment: Speci men Type: BLOOD SPECIMENOrdering Facility: [facility] Address: [address] [place] [address] Result Comment: Linn ents receiving either N-Acetylcysteine (NAC) or Metamizole prior to venipuncture, may have falsely depressed results. Performed By: #### 2 43203-11, ####[facility] LABORATORYCLIA [id number] [place] [address] [place] Creatinine and Glomerular filtration rate.predicted panel (S/P/Bld) 87 mL/min/1.73m??? Normal >=60 [facility] Comment on above: Order Comment: Speci men Type: BLOOD SPECIMENOrdering Facility: [facility] Address: [address] [place] [address] Result Comment: Esme mated Glomerular Filtration Rate [...] actual GFR. Performed By: #### 2 4321-2, ####[facility] LABORATORYCLIA [id number] [place] [id number] [place] Glucose [Mass/Vol] 97 mg/dL Normal 70-100 [facility] Comment on above: Order Comment: Brady smith Type: BLOOD SPECIMENOrdering Facility: [facility] Address: [address] [id number] Result Comment: The [place] [employer] (ADA) provides guidance for cutoff [...] Standards of Medical Care in Diabetes 2016, [place] [employer]. Diabetes Care. 2016.39(Suppl 1).Results may be falsely elevated after the administration of Sulfapyridine.Results may be falsely depressed after the administration of Sulfasalazine. Performed By: #### 2 432-, ####[facility] LABORATORYCLIA [id number] [place] [address] [place] Potassium [Moles/Vol] 3.4 mmol/L Low 3.5-5.1 [facility] Comment on above: Order Comment: Brady smith Type: BLOOD SPECIMENOrdering Facility: [facility] Address: [address] [place], [place] [address] Performed By: #### 2 43203-11, ####[facility] LABORATORYCLIA [id number] [place] [address] [place] Sodium [Moles/Vol] 139 mmol/L Normal 136-145 [facility] Comment on above: Order Comment: Brady smith Type: BLOOD SPECIMENOrdering Facility: [facility] Address: [address] [place], [place] [address] Performed By: #### 2 43203-11, ####[facility] LABORATORYCLIA [id number] [place] [address] [place] Urea nitrogen [Mass/Vol] 8 mg/dL Normal 7-26 [facility] Comment on above: Order Comment: Speci men Type: BLOOD SPECIMENOrdering Facility: [facility] Address: [address] [place] [address] Performed By: #### 2 4321-2, 28534-9 ####[facility] LABORATORYCLIA [id number] [place] [id number] [place] CBC panel Auto (Bld)on 09-13 Erythrocyte distribution width (RBC) [Ratio] 12.9 % Normal 11.5-15.0 [facility] Comment on above: Order Comment: Speci men Type: BLOOD SPECIMENOrdering Facility: [facility] Address: [address] [place] [address] Performed By: #### 5 8410-2 ####[facility] LABORATORYCLIA [id number] [address] [place] Hematocrit (Bld) [Volume fraction] 40.6 % Normal 36.0-46.0 [facility] Comment on above: Order Comment: Speci men Type: BLOOD SPECIMENOrdering Facility: [facility] Address: [address] [place] [address] Performed By: #### 5 8410-2 ####[facility] LABORATORYCLIA [id number] [place] [id number] [place] Hemoglobin (Bld) [Mass/Vol] 13.8 g/dL Normal 11.5-15.5 [facility] Comment on above: Order Comment: Speci men Type: BLOOD SPECIMENOrdering Facility: [facility] Address: [address] [place] [address] Performed By: #### 5 8410-2 ####[facility] LABORATORYCLIA [id number] [place] [id number] [place] MCH (RBC) [Entitic mass] 27.8 pg Normal 26.0-34.0 [facility] Comment on above: Order Comment: Speci men Type: BLOOD SPECIMENOrdering Facility: [facility] Address: [address] [place] [address] Performed By: #### 5 8410-2 ####[facility] LABORATORYCLIA [id number] [place] [id number] [place] MCHC (RBC) [Mass/Vol] 34.0 g/dL Normal 30.5-36.0 [facility] Comment on above: Order Comment: Speci men Type: BLOOD SPECIMENOrdering Facility: [facility] Address: [address] [place] [address] Performed By: #### 5 8410-2 ####[facility] LABORATORYCLIA [id number] [place] [id number] [place] MCV (RBC) [Entitic vol] 81.7 fL Normal 80.0-100.[address] [facility] Comment on above: Order Comment: Speci men Type: BLOOD SPECIMENOrdering Facility: [facility] Address: [address] [place] [address] Performed By: #### 5 8410-2 ####[facility] LABORATORYCLIA [id number] [place] [address] [place] Nucleated RBC (Bld) [#/Vol] 10*3/uL Normal <0.01 [facility] Comment on above: Order Comment: Speci men Type: BLOOD SPECIMENOrdering Facility: [facility] Address: [address] [place] [address] Performed By: #### 5 8410-2 ####[facility] LABORATORYCLIA [id number] [place] [address] [place] Platelet mean volume (Bld) [Entitic vol] 9.9 fL Normal 9.0-12.7 [facility] Comment on above: Order Comment: Speci men Type: BLOOD SPECIMENOrdering Facility: [facility] Address: [address] [place] [address] Performed By: #### 5 8410-2 ####[facility] LABORATORYCLIA [id number] [place] [id number] [place] Platelets (Bld) [#/Vol] 156 10*3/uL Normal 150-400 [facility] Comment on above: Order Comment: Speci men Type: BLOOD SPECIMENOrdering Facility: [facility] Address: [address] [place] [address] Performed By: #### 5 8410-2 ####[facility] LABORATORYCLIA [id number] [place] [id number] [place] RBC (Bld) [#/Vol] 4.97 10*6/uL Normal 3.90-5.20 [facility] Comment on above: Order Comment: Speci men Type: BLOOD SPECIMENOrdering Facility: [facility] Address: [address] [place] [address] Performed By: #### 5 8410-2 ####[facility] LABORATORYCLIA [id number] [address] WBC (Bld) [#/Vol] 7.41 10*3/uL Normal 3.70-11.00 [facility] Comment on above: Order Comment: Speci men Type: BLOOD SPECIMENOrdering Facility: [facility] Address: [address] [place] [address] Performed By: #### 5 8410-2 ####[facility] LABORATORYIA [id number] [place] [id number] [place] Magnesium SerPl-mCncon 09-13 Magnesium [Mass/Vol] 1.9 mg/dL Normal 1.6-2.6 [facility] Comment on above: Order Comment: Speci men Type: BLOOD SPECIMENOrdering Facility: [facility] Address: [address] [place] [address] Performed By: #### 2 4321-2, 44305-2 ####[facility] LABORATORYIA [id number] [place] [address] [place] CBC W Auto Differential pane l (Bld)on 09-13-2023 Basophils (Bld) [#/Vol] 10*3/uL Normal <0.[address] [facility] Comment on above: Order Comment: Speci men Type: BLOOD SPECIMENOrdering Facility: [facility] Address: [address] [place] [address] Performed By: #### 5 7021-8 ####[facility] LABORATORYCLIA [id number] [place] [id number] [place] Basophils/100 WBC (Bld) 0.2 % Normal [facility] Comment on above: Order Comment: Speci men Type: BLOOD SPECIMENOrdering Facility: [facility] Address: [address] [place] [address] Performed By: #### 5 7021-8 ####[facility] LABORATORYCLIA [id number] [place] [address] [place] Differential cell count method Nom (Bld) Auto Normal [facility] Comment on above: Order Comment: Speci men Type: BLOOD SPECIMENOrdering Facility: [facility] Address: [address] [place] [address] Performed By: #### 5 7021-8 ####[facility] LABORATORYCLIA [id number] [address] [place] Eosinophils (Bld) [#/Vol] 0.10 10*3/uL Normal <0.46 [facility] Comment on above: Order Comment: Speci men Type: BLOOD SPECIMENOrdering Facility: [facility] Address: [address] [place] [address] Performed By: #### 5 7021-8 ####[facility] LABORATORYCLIA [id number] [address] [place] Eosinophils/100 WBC (Bld) 1.2 % Normal [facility] Comment on above: Order Comment: Speci men Type: BLOOD SPECIMENOrdering Facility: [facility] Address: [address] [place] [address] Performed By: #### 5 7021-8 ####[facility] LABORATORYCLIA [id number] [place] [address] [place] Erythrocyte distribution width (RBC) [Ratio] 12.9 % Normal 11.5-15.0 [facility] Comment on above: Order Comment: Speci men Type: BLOOD SPECIMENOrdering Facility: [facility] Address: [address] [place] [address] Performed By: #### 5 7021-8 ####[facility] LABORATORYCLIA [id number] [place] [id number] [place] Hematocrit (Bld) [Volume fraction] 40.0 % Normal 36.0-46.0 [facility] Comment on above: Order Comment: Speci men Type: BLOOD SPECIMENOrdering Facility: [facility] Address: [address] [place] [address] Performed By: #### 5 7021-8 ####[facility] LABORATORYCLIA [id number] [place] [address] [place] Hemoglobin (Bld) [Mass/Vol] 14.2 g/dL Normal 11.5-15.5 [facility] Comment on above: Order Comment: Speci men Type: BLOOD SPECIMENOrdering Facility: [facility] Address: [address] [place] [address] Performed By: #### 5 7021-8 ####[facility] LABORATORYCLIA [id number] [place] [address] [place] Immature granulocytes (Bld) [#/Vol] 0.03 10*3/uL Normal <0.10 [facility] Comment on above: Order Comment: Speci men Type: BLOOD SPECIMENOrdering Facility: [facility] Address: [address] [place] [address] Performed By: #### 5 7021-8 ####[facility] LABORATORYCLIA [id number] [place] [address] [place] Immature granulocytes/100 WBC (Bld) 0.4 % Normal [facility] Comment on above: Order Comment: Speci men Type: BLOOD SPECIMENOrdering Facility: [facility] Address: [address] [place] [address] Performed By: #### 5 7021-8 ####[facility] LABORATORYCLIA [id number] [place] [address] [place] Lymphocytes (Bld) [#/Vol] 1.23 10*3/uL Normal 1.00-4.00 [facility] Comment on above: Order Comment: Speci men Type: BLOOD SPECIMENOrdering Facility: [facility] Address: [address] [place] [address] Performed By: #### 5 7021-8 ####[facility] LABORATORYCLIA [id number] [place] [address] [place] Lymphocytes/100 WBC (Bld) 14.9 % Normal [facility] Comment on above: Order Comment: Speci men Type: BLOOD SPECIMENOrdering Facility: [facility] Address: [address] [place] [address] Performed By: #### 5 7021-8 ####[facility] LABORATORYCLIA [id number] [place] [address] [place] MCH (RBC) [Entitic mass] 28.6 pg Normal 26.0-34.0 [facility] Comment on above: Order Comment: Speci men Type: BLOOD SPECIMENOrdering Facility: [facility] Address: [address] [place] [address] Performed By: #### 5 7021-8 ####[facility] LABORATORYCLIA [id number] [place] [address] [place] MCHC (RBC) [Mass/Vol] 35.5 g/dL Normal 30.5-36.0 [facility] Comment on above: Order Comment: Speci men Type: BLOOD SPECIMENOrdering Facility: [facility] Address: [address] [place] [address] Performed By: #### 5 7021-8 ####[facility] LABORATORYCLIA [id number] [place] [address] [place] MCV (RBC) [Entitic vol] 80.6 fL Normal 80.0-100.[address] [facility] Comment on above: Order Comment: Speci men Type: BLOOD SPECIMENOrdering Facility: [facility] Address: [address] [place] [address] Performed By: #### 5 7021-8 ####[facility] LABORATORYCLIA [id number] [place] [address] [place] Monocytes (Bld) [#/Vol] 0.92 10*3/uL High <0.87 [facility] Comment on above: Order Comment: Speci men Type: BLOOD SPECIMENOrdering Facility: [facility] Address: [address] [place] [address] Performed By: #### 5 7021-8 ####[facility] LABORATORYCLIA [id number] [place] [address] [place] Monocytes/100 WBC (Bld) 11.1 % Normal [facility] Comment on above: Order Comment: Speci men Type: BLOOD SPECIMENOrdering Facility: [facility] Address: [address] [place] [address] Performed By: #### 5 7021-8 ####[facility] LABORATORYCLIA [id number] [place] [address] [place] Neutrophils (Bld) [#/Vol] 5.98 10*3/uL Normal 1.45-7.50 [facility] Comment on above: Order Comment: Speci men Type: BLOOD SPECIMENOrdering Facility: [facility] Address: [address] [place] [address] Performed By: #### 5 7021-8 ####[facility] LABORATORYCLIA [id number] [place] [address] [place] Neutrophils/100 WBC (Bld) 72.2 % Normal [facility] Comment on above: Order Comment: Speci men Type: BLOOD SPECIMENOrdering Facility: [facility] Address: [address] [place] [address] Performed By: #### 5 7021-8 ####[facility] LABORATORYCLIA [id number] [place] [address] [place] Nucleated RBC (Bld) [#/Vol] 10*3/uL Normal <0.01 [facility] Comment on above: Order Comment: Speci men Type: BLOOD SPECIMENOrdering Facility: [facility] Address: [address] [facility] [place] [address] Performed By: #### 5 7021-8 ####[facility] LABORATORYCLIA [id number] [place] [id number] [place] Nucleated RBC/100 WBC (Bld) [Ratio] 0.0 /100 WBC Normal [facility] Comment on above: Order Comment: Speci men Type: BLOOD SPECIMENOrdering Facility: [facility] Address: [address] [place] [address] Performed By: #### 5 7021-8 ####[facility] LABORATORYCLIA [id number] [place] [id number] [place] Platelet mean volume (Bld) [Entitic vol] 9.6 fL Normal 9.0-12.7 [facility] Comment on above: Order Comment: Speci men Type: BLOOD SPECIMENOrdering Facility: [facility] Address: [address] [place] [address] Performed By: #### 5 7021-8 ####[facility] LABORATORYCLIA [id number] [place] [address] [place] Platelets (Bld) [#/Vol] 151 10*3/uL Normal 150-400 [facility] Comment on above: Order Comment: Speci men Type: BLOOD SPECIMENOrdering Facility: [facility] Address: [address] [place] [address] Performed By: #### 5 7021-8 ####[facility] LABORATORYCLIA [id number] [place] [address] [place] RBC (Bld) [#/Vol] 4.96 10*6/uL Normal 3.90-5.20 [facility] Comment on above: Order Comment: Speci men Type: BLOOD SPECIMENOrdering Facility: [facility] Address: [facility] [place] [address] Performed By: #### 5 7021-8 ####[facility] LABORATORYCLIA [id number] [place] [id number] [place] WBC (Bld) [#/Vol] 8.28 10*3/uL Normal 3.70-11.00 [facility] Comment on above: Order Comment: Speci men Type: BLOOD SPECIMENOrdering Facility: [facility] Address: [address] [place] [address] Performed By: #### 5 7021-8 ####[facility] LABORATORYCLIA [id number] [place] [id number] [facility] Comprehensive metabolic 2000 panelon 09-13-2023 Albumin [Mass/Vol] 3.6 g/dL Normal 3.2-5.0 [facility] Comment on above: Order Comment: Speci men Type: BLOOD SPECIMENOrdering Facility: [facility] Address: [address] [place] [address] Performed By: #### 2 4323-8, 30379-9 ####[facility] LABORATORYCLIA [id number] [place] [id number] [place] [facility] ALP [Catalytic activity/Vol] 102 U/L Normal 45-117 [facility] Comment on above: Order Comment: Speci men Type: BLOOD SPECIMENOrdering Facility: [facility] Address: [address] [place] [address] Performed By: #### 2 4323-8, 89804-0 ####[facility] LABORATORYCLIA [id number] [place] [id number] [facility] ALT [Catalytic activity/Vol] 10 U/L Low 13-61 [facility] Comment on above: Order Comment: Speci men Type: BLOOD SPECIMENOrdering Facility: [facility] Address: [address] [place] [address] Result Comment: Resu lts may be falsely depressed after the administration of Sulfasalazine and/or Sulfapyridine. Performed By: #### 2 4323-8, 77590-2 ####[facility] LABORATORYCLIA [id number] [place] [id number] [place] Anion gap [Moles/Vol] 9 mmol/L Normal 5-16 [facility] Comment on above: Order Comment: Speci men Type: BLOOD SPECIMENOrdering Facility: [facility] Address: [address] [place] [address] Performed By: #### 2 4323-8, ####[facility] LABORATORYCLIA [id number] [place] [id number] [place] AST [Catalytic activity/Vol] 17 U/L Normal 8-34 [facility] Comment on above: Order Comment: Speci men Type: BLOOD SPECIMENOrdering Facility: [facility] Address: [address] [place] [address] Result Comment: Resu lts may be falsely depressed after the administration of Sulfasalazine and/or Sulfapyridine. Performed By: #### 2 4323-8, ####[facility] LABORATORYCLIA [id number] [place] [address] [place] Bilirubin [Mass/Vol] 0.8 mg/dL Normal 0.2-1.0 [facility] Comment on above: Order Comment: Speci men Type: BLOOD SPECIMENOrdering Facility: [facility] Address: [address] [place] [address] Performed By: #### 2 4323-8, ####[facility] LABORATORYCLIA [id number] [place] [address] [place] Calcium [Mass/Vol] 10.7 mg/dL High 8.5-10.5 [facility] Comment on above: Order Comment: Speci men Type: BLOOD SPECIMENOrdering Facility: [facility] Address: [address] [place] [address] Performed By: #### 2 4323-8, ####[facility] LABORATORYCLIA [id number] [place] [id number] [place] Chloride [Moles/Vol] 92 mmol/L Low 98-107 [facility] Comment on above: Order Comment: Speci men Type: BLOOD SPECIMENOrdering Facility: [facility] Address: [address] [place] [address] Performed By: #### 2 4323- ####[facility] LABORATORYCLIA [id number] [place] [id number] [place] CO2 [Moles/Vol] 33 mmol/L High 21-32 [facility] Comment on above: Order Comment: Speci men Type: BLOOD SPECIMENOrdering Facility: [facility] Address: [address] [place] [address] Performed By: #### 2 43205-15, ####[facility] LABORATORYCLIA [id number] [place] [address] [place] Creatinine [Mass/Vol] 0.99 mg/dL High 0.51-0.95 [facility] Comment on above: Order Comment: Speci men Type: BLOOD SPECIMENOrdering Facility: [facility] Address: [address] [place] [address] Result Comment: Linn ents receiving either N-Acetylcysteine (NAC) or Metamizole prior to venipuncture, may have falsely depressed results. Performed By: #### 2 43205-15, ####[facility] LABORATORYCLIA [id number] [place] [address] [place] Creatinine and Glomerular filtration rate.predicted panel (S/P/Bld) 56 mL/min/1.73m??? Low >=60 [facility] Comment on above: Order Comment: Speci men Type: BLOOD SPECIMENOrdering Facility: [facility] Address: [address] [place] [address] Result Comment: Esme mated Glomerular Filtration Rate [...] actual GFR. Performed By: #### 2 4323-8, ####[facility] LABORATORYCLIA [id number] [place] [id number] [place] Glucose [Mass/Vol] 103 mg/dL High 70-100 [facility] Comment on above: Order Comment: Brady smith Type: BLOOD SPECIMENOrdering Facility: [facility] Address: [address] [place], [place] [id number] Result Comment: The [place] [employer] (ADA) provides guidance for cutoff [...] Standards of Medical Care in Diabetes 2016, [place] [employer]. Diabetes Care. 2016.39(Suppl 1).Results may be falsely elevated after the administration of Sulfapyridine.Results may be falsely depressed after the administration of Sulfasalazine. Performed By: #### 2 4323-8, 09906-9 ####[facility] LABORATORYCLIA [id number] [place] [address] [place] Potassium [Moles/Vol] 2.7 mmol/L Low 3.5-5.1 [facility] Comment on above: Order Comment: Brady smith Type: BLOOD SPECIMENOrdering Facility: [facility] Address: [address] [place] [address] Performed By: #### 2 4323-8, 05734-2 ####[facility] LABORATORYCLIA [id number] [place] [id number] [place] Protein [Mass/Vol] 7.3 g/dL Normal 6.0-8.5 [facility] Comment on above: Order Comment: Brady smith Type: BLOOD SPECIMENOrdering Facility: [facility] Address: [address] [place], [place] [address] Performed By: #### 2 4323-8, 47736-1 ####[facility] LABORATORYCLIA [id number] [place] [id number] [place] Sodium [Moles/Vol] 134 mmol/L Low 136-145 [facility] Comment on above: Order Comment: Speci men Type: BLOOD SPECIMENOrdering Facility: [facility] Address: [address] [place] [address] [place] [id number] Performed By: #### 2 4323-8, 89012-2 ####[facility] LABORATORYCLIA [id number] [place] [id number] [place] Urea nitrogen [Mass/Vol] 18 mg/dL Normal 10-02 [facility] Comment on above: Order Comment: Speci men Type: BLOOD SPECIMENOrdering Facility: [facility] Address: [address] [place], [place] [address] Performed By: #### 2 4323-8, 48010-9 ####[facility] LABORATORYCLIA [id number] [place] [id number] [place] ECG COMPLETEon 09-13-2023 ECG COMPLETE Normal [facility] ED NOTEon 09-13-2023 ED NOTE Normal [facility] ED NOTE HNO ID: [id number] Author: LJ HUNTER RN Service: ? Author Type: Registered Nurse Type: ED Notes Filed: 09/13/2023 08:47 Note Text: Bed: 11-ED Expected date: 09/13/23 Expected time: 8:27 AM Means of arrival: Comments: [place] Normal [facility] ED PROV NOTEon 09-13-2023 ED PROV NOTE Normal [facility] HIGH SENSITIVITY TROPONIN Io n 09-13-2023 Tropinin I.cardiac panel High sensitivity method 14.9 pg/mL Normal 0.0-34.0 [facility] Comment on above: Order Comment: Speci men Type: BLOOD SPECIMENOrdering Facility: [facility] Address: [address] [place], [place] [address] [place] [id number] Performed By: #### H ALONDRAP ####[facility] LABORATORYCLIA [id number] [place] [id number] [place] HISTORY PHYSICALon HISTORY PHYSICAL Normal [facility] Magnesium SerPl-mCncon 09-12 Magnesium [Mass/Vol] 1.3 mg/dL Low 1.6-2.6 [facility] Comment on above: Order Comment: Specsamantha smith Type: BLOOD SPECIMENOrdering Facility: [facility] Address: [address] [place] [address] Performed By: #### 2 4323-8, 25388-8 ####[facility] LABORATORYCLIA [id number] [place] [id number] [facility] NURSING PROGon 09-13-2023 NURSING PROG Normal [facility] PT panel Coag (PPP)on 2023 INR Coag (PPP) [Relative time] 1.2 {INR} Normal 0.9-1.3 [facility] Comment on above: Order Comment: Brady smith Type: BLOOD SPECIMENOrdering Facility: [facility] Address: [address] [place] [address] Result Comment: Serena min K Antagonist (VKA) Therapeutic Range: INR 2 to 3 (Target INR of 2.5)Note: For patients treated with VKA drugs, such as warfarin, the [place] [employer] 2012 Guideline recommends [...] of 3).Josue JONES, et al. Chest 2012, 141:7S-47SNishimeddie RA, et al. JAC 2017, 70: 252-289 Performed By: #### 3 4528-0, 70656-6 ####[facility] LABORATORYCLIA [id number] [place] [id number] [place] PT Coag (PPP) [Time] 12.6 s Normal 9.7-13.0 [facility] Comment on above: Order Comment: Brady smith Type: BLOOD SPECIMENOrdering Facility: [facility] Address: [address] [place] [address] Performed By: #### 3 4528-0, 04208-4 ####[facility] LABORATORYCLIA [id number] [address] Urinalysis complete panel (U )on 09-13-2023 Bacteria LM.HPF (Urine sed) [#/Area] Many Abnormal None Seen [facility] Comment on above: Order Comment: Speci men Type: URINE SPECIMENOrdering Facility: [facility] Address: [address] [place] [address] Performed By: #### 2 4356-8 ####[facility] LABORATORYCLIA [id number] [address] [place] Bilirubin Ql (U) Negative Normal Negative [facility] Comment on above: Order Comment: Speci men Type: URINE SPECIMENOrdering Facility: [facility] Address: [address] [place] [address] Performed By: #### 2 4356-8 ####[facility] LABORATORYCLIA [id number] [address] [place] Clarity (Unsp spec) Hazy Abnormal Clear [facility] Comment on above: Order Comment: Speci men Type: URINE SPECIMENOrdering Facility: [facility] Address: [address] [place] [address] Performed By: #### 2 4356-8 ####[facility] LABORATORYCLIA [id number] [address] [place] Color (U) Yellow Normal Yellow [facility] Comment on above: Order Comment: Speci men Type: URINE SPECIMENOrdering Facility: [facility] Address: [address] [place] [address] Performed By: #### 2 4356-8 ####[facility] LABORATORYCLIA [id number] [address] [place] Epithelial cells LM.HPF (Urine sed) [#/Area] Few Normal [facility] Comment on above: Order Comment: Speci men Type: URINE SPECIMENOrdering Facility: [facility] Address: [address] [place] [address] Performed By: #### 2 4356-8 ####[facility] LABORATORYCLIA [id number] [address] [place] Glucose Test strip (U) [Mass/Vol] Negative Normal Negative [facility] Comment on above: Order Comment: Speci men Type: URINE SPECIMENOrdering Facility: [facility] Address: [address] [place] [address] Performed By: #### 2 4356-8 ####[facility] LABORATORYCLIA [id number] [address] [place] Hemoglobin Ql (U) Negative Normal Negative [facility] Comment on above: Order Comment: Speci men Type: URINE SPECIMENOrdering Facility: [facility] Address: [address] [place] [address] Performed By: #### 2 4356-8 ####[facility] LABORATORYCLIA [id number] [place] [address] [place] Ketones Ql (U) Trace Abnormal Negative [facility] Comment on above: Order Comment: Speci men Type: URINE SPECIMENOrdering Facility: [facility] Address: [address] [place] [address] Performed By: #### 2 4356-8 ####[facility] LABORATORYCLIA [id number] [address] [place] Leukocyte esterase Test strip Ql (U) 3+ Abnormal Negative [facility] Comment on above: Order Comment: Speci men Type: URINE SPECIMENOrdering Facility: [facility] Address: [address] [place] [address] Performed By: #### 2 4356-8 ####[facility] LABORATORYCLIA [id number] [place] [address] [place] Nitrite Ql (U) Negative Normal Negative [facility] Comment on above: Order Comment: Speci men Type: URINE SPECIMENOrdering Facility: [facility] Address: [address] [place] [address] Performed By: #### 2 4356-8 ####[facility] LABORATORYCLIA [id number] [address] [place] pH (U) 6.0 [pH] Normal 5.0-8.0 [facility] Comment on above: Order Comment: Speci men Type: URINE SPECIMENOrdering Facility: [facility] Address: [address] [place] [address] Performed By: #### 2 4356-8 ####[facility] LABORATORYCLIA [id number] [place] [address] [place] Protein (U) [Mass/Vol] Negative Normal Negative [facility] Comment on above: Order Comment: Speci men Type: URINE SPECIMENOrdering Facility: [facility] Address: [address] [place] [address] Performed By: #### 2 4356-8 ####[facility] LABORATORYCLIA [id number] [place] [address] [place] RBC LM.HPF (Urine sed) [#/Area] 6-10 /HPF Abnormal 0-3 /HPF [facility] Comment on above: Order Comment: Speci men Type: URINE SPECIMENOrdering Facility: [facility] Address: [address] [place] [address] Performed By: #### 2 4356-8 ####[facility] LABORATORYCLIA [id number] [place] [address] [place] Specific gravity (U) [Rel density] 1.012 Normal 1.005-1.030 [facility] Comment on above: Order Comment: Speci men Type: URINE SPECIMENOrdering Facility: [facility] Address: [address] [place] [address] Performed By: #### 2 4356-8 ####[facility] LABORATORYCLIA [id number] [place] [address] [place] Urobilinogen Ql (U) Negative Normal Negative [facility] Comment on above: Order Comment: Speci men Type: URINE SPECIMENOrdering Facility: [facility] Address: [address] [place], [place] [id number] Performed By: #### 2 4356-8 ####[facility] LABORATORYCLIA [id number] [address] WBC LM.HPF (Urine sed) [#/Area] /[HPF] Abnormal 0-5 /HPF [facility] Comment on above: Order Comment: Speci men Type: URINE SPECIMENOrdering Facility: [facility] Address: [address] [place] [address] Performed By: #### 2 4356-8 ####[facility] LABORATORYCLIA [id number] [address] [place] Urinalysis complete pnl Uron 09-13-2023 Urinalysis complete panel (U) Normal [facility] Comment on above: Order Comment: Speci men Type: URINE SPECIMENOrdering Facility: [facility] Address: [address] [place] [address] Performed By: #### 2 4356-8 ####[facility] LABORATORYCLIA [id number] [address] [place] aPTT PPPon 09-13-2023 aPTT Coag (PPP) [Time] 33.5 s High 23.0-32.4 [facility] Comment on above: Order Comment: Speci men Type: BLOOD SPECIMENOrdering Facility: [facility] Address: [address] [place] [address] Performed By: #### 3 4528-0, 04364-7 ####[facility] LABORATORYCLIA [id number] [address] [place] .Auto Diffon 09-03-2023 Basophil, Absolute 0.0 10 3/mcL Normal 0.0-0.3 [facility] ([place]) Comment on above: Performed By: #### B MP, GFR, TSH #### [facility] [address] [place] [address] Basophils/100 WBC (Bld) 0.1 % Normal 0.0-2.5 A [facility] ([place]) Comment on above: Performed By: #### B MP, GFR, TSH #### [address] [address] Eosinophil, Absolute 0.3 10 3/mcL Normal 0.0-0.7 [facility] ([place]) Comment on above: Performed By: #### B MP, GFR, TSH #### [address] [address] Eosinophils/100 WBC (Bld) 4.7 % Normal 0.0-6.0 [facility] ([place]) Comment on above: Performed By: #### B MP, GFR, TSH #### [address] [address] Lymphocyte, Absolute 1.7 10 3/mcL Normal 0.9-4.3 [facility] ([place]) Comment on above: Performed By: #### B MP, GFR, TSH #### [address] [address] Lymphocytes/100 WBC (Bld) 27.4 % Normal 20.0-40.0 [facility] ([place]) Comment on above: Performed By: #### B MP, GFR, TSH #### [address] [address] Monocyte, Absolute 0.8 10 3/mcL Normal 0.1-1.4 [facility] ([place]) Comment on above: Performed By: #### B MP, GFR, TSH #### [address] [address] Monocytes/100 WBC (Bld) 11.9 % Normal 2.0-13.0 A [facility] ([place]) Comment on above: Performed By: #### B MP, GFR, TSH #### [address] [address] Neutrophils/100 WBC (Bld) 55.9 % Normal 50.0-75.0 [facility] ([place]) Comment on above: Performed By: #### B MP, GFR, TSH #### [address] [address] .GFRon 09-03-2023 GFR >60 Normal [facility] ([place]) Comment on above: Result Comment: GFR Population [...] By: #### B MP, GFR, TSH #### [address] [address] GFR Non- >60 Normal [facility] ([place]) Comment on above: Result Comment: GFR Population [...] By: #### B MP, GFR, TSH #### [address] [address] .NEUABSon 09-03-2023 Neutrophil, Absolute 3.6 10 3/mcL Normal 2.3-8.1 [facility] ([place]) Comment on above: Performed By: #### B MP, GFR, TSH #### [address] [address] B12on 09-03-2023 Cobalamin (Vitamin B12) [Mass/Vol] 453 pg/mL Normal 211-911 [facility] ([place]) Comment on above: Performed By: #### B MP, GFR, TSH #### [address] [address] BMPon 09-03-2023 BUN/Creatinine Ratio 18.3 ratio Normal 10.0-22.0 [facility] ([place]) Comment on above: Performed By: #### B MP, GFR, TSH #### [address] [address] Calcium [Mass/Vol] 10.0 mg/dL Normal 8.7-10.4 [facility] ([place]) Comment on above: Performed By: #### B MP, GFR, TSH #### [address] [address] Chloride [Moles/Vol] 99 mmol/L Normal 98-110 [facility] ([place] Comment on above: Performed By: #### B MP, GFR, TSH #### [address] [address] CO2 [Moles/Vol] 33 mmol/L High 22-32 [facility] ([place]) Comment on above: Performed By: #### B MP, GFR, TSH #### [address] [address] Creatinine [Mass/Vol] 0.82 mg/dL Normal 0.50-1.20 [facility] ([place]) Comment on above: Performed By: #### B MP, GFR, TSH #### [address] [address] Electrolyte Balance 2.0 mEq/L Low 4.0-15.0 [facility] ([place] Comment on above: Performed By: #### B MP, GFR, TSH #### [address] [address] Glucose [Mass/Vol] 77 mg/dL Low 82-115 [facility] ([place]) Comment on above: Performed By: #### B MP, GFR, TSH #### [address] [address] Potassium [Moles/Vol] 3.6 mmol/L Normal 3.5-5.0 [facility] ([place] Comment on above: Performed By: #### B MP, GFR, TSH #### [place] [phone] Sodium [Moles/Vol] 134 mmol/L Low 136-145 [facility] ([place]) Comment on above: Performed By: #### B MP, GFR, TSH #### [place] [phone] Urea nitrogen [Mass/Vol] 15.0 mg/dL Normal 8.0-22.0 [facility] ([place] Comment on above: Performed By: #### B MP, GFR, TSH #### [place] [id number] CBCon 09-03-2023 Erythrocyte distribution width (RBC) [Ratio] 13.0 % Normal 11.5-15.5 [facility] ([place]) Comment on above: Performed By: #### B MP, GFR, TSH #### [place] [address] Hematocrit (Bld) [Volume fraction] 40.2 % Normal 34.0-46.0 [facility] ([place] Comment on above: Performed By: #### B MP, GFR, TSH #### [place] [address] Hgb 13.5 G/dL Normal 12.0-16.0 [facility] ([place] Comment on above: Performed By: #### B MP, GFR, TSH #### [place] [phone] MCH (RBC) [Entitic mass] 29.1 pg Normal 27.0-33.0 [facility] ([place]) Comment on above: Performed By: #### B MP, GFR, TSH #### [place] [phone] MCHC 33.7 G/dL Normal 32.0-36.0 [facility] ([place] Comment on above: Performed By: #### B MP, GFR, TSH #### [place] [phone] MCV (RBC) [Entitic vol] 86.5 fL Normal 80.0-99.0 A [facility] ([place]) Comment on above: Performed By: #### B MP, GFR, TSH #### [address] [address] Platelet 106 10 3/mcL Low 150-450 [facility] ([place]) Comment on above: Performed By: #### B MP, GFR, TSH #### [address] [address] Platelet mean volume (Bld) [Entitic vol] 9.4 fL Normal 6.6-10.5 [facility] ([place]) Comment on above: Performed By: #### B MP, GFR, TSH #### [place] [address] RBC 4.64 10 6/mcL Normal 4.10-5.30 [facility] ([place]) Comment on above: Performed By: #### B MP, GFR, TSH #### [place] [phone] WBC 6.4 10 3/mcL Normal 4.5-10.8 [facility] ([place]) Comment on above: Performed By: #### B MP, GFR, TSH #### [place] [phone] Luis Alberto 09-03-2023 Ferritin [Mass/Vol] 99.6 ng/mL Normal 8.0-252.0 [facility] ([place] Comment on above: Performed By: #### B MP, GFR, TSH #### [address] [address] FT4on 09-03-2023 Free T4 [Mass/Vol] 1.81 ng/dL High 0.89-1.76 [facility] ([place]) Comment on above: Result Comment: No te - New Reference Range in effect 19 Performed By: #### B MP, GFR, TSH #### [place] [phone] LIPIDon 09-03-2023 Cholesterol [Mass/Vol] 155 mg/dL Normal 50-199 [facility] ([place]) Comment on above: Result Comment: Chol esterol Reference Interval: Less than 200 Desirable 200-239 Borderline high risk 240 and above High risk Performed By: #### B MP, GFR, TSH #### [address] [address] Cholesterol in HDL [Mass/Vol] 32 mg/dL Low 40-59 [facility] ([place]) Comment on above: Performed By: #### B MP, GFR, TSH #### [address] [address] Cholesterol in LDL [Mass/Vol] 91 mg/dL Normal 0-129 [facility] ([place] Comment on above: Performed By: #### B MP, GFR, TSH #### [address] [address] Triglyceride [Mass/Vol] 159 mg/dL High 3-149 A [facility] ([place]) Comment on above: Performed By: #### B MP, GFR, TSH #### [address] [address] MGon 09-03-2023 Magnesium [Mass/Vol] 1.2 mg/dL Low 1.6-2.4 [facility] ([place]) Comment on above: Performed By: #### B MP, GFR, TSH #### [address] [address] .GFRon 08-01-2023 GFR >60 Normal [facility] ([place]) Comment on above: Result Comment: GFR Population [...] By: #### B MP, GFR, TSH #### [facility] [address] [place], [place] [address] GFR Non- >60 Normal [facility] ([place]) Comment on above: Result Comment: GFR Population [...] By: #### B MP, GFR, TSH #### [address] [address] BMPon 08-01-2023 BUN/Creatinine Ratio 18.8 ratio Normal 10.0-22.0 [facility] ([place]) Comment on above: Performed By: #### B MP, GFR, TSH #### [address] [address] Calcium [Mass/Vol] 10.2 mg/dL Normal 8.7-10.4 [facility] ([place]) Comment on above: Performed By: #### B MP, GFR, TSH #### [address] [address] Chloride [Moles/Vol] 101 mmol/L Normal 98-110 [facility] ([place] Comment on above: Performed By: #### B MP, GFR, TSH #### [address] [address] CO2 [Moles/Vol] 33 mmol/L High 22-32 [facility] ([place]) Comment on above: Performed By: #### B MP, GFR, TSH #### [address] [address] Creatinine [Mass/Vol] 0.85 mg/dL Normal 0.50-1.20 [facility] ([place] Comment on above: Performed By: #### B MP, GFR, TSH #### [address] [address] Electrolyte Balance 4.0 mEq/L Normal 4.0-15.0 [facility] ([place] Comment on above: Performed By: #### B MP, GFR, TSH #### [address] [address] Glucose [Mass/Vol] 121 mg/dL High 82-115 [facility] ([place] Comment on above: Performed By: #### B MP, GFR, TSH #### [address] [address] Potassium [Moles/Vol] 4.0 mmol/L Normal 3.5-5.0 [facility] ([place] Comment on above: Performed By: #### B MP, GFR, TSH #### [address] [address] Sodium [Moles/Vol] 138 mmol/L Normal 136-145 [facility] ([place] Comment on above: Performed By: #### B MP, GFR, TSH #### [address] [address] Urea nitrogen [Mass/Vol] 16.0 mg/dL Normal 8.0-22.0 [facility] ([place] Comment on above: Performed By: #### B MP, GFR, TSH #### [address] [address] TSHon 08-01-2023 TSH 0.028 mIU/mL Low 0.550-4.780 [facility] ([place]) Comment on above: Result Comment: No te - New Reference Range in effect 19 Performed By: #### B MP, GFR, TSH #### [address] [address] [facility] 25-hydroxyvitamin D3 [Mass/Vol] 51.4 ng/mL Normal 30.0-100.0 [facility] Comment on above: Order Comment: Speci men Type: BLOOD SPECIMENOrdering Facility: [facility] Address: [address] [place] [address] Result Comment: Defi ciency\\X09\\Less than 20 ng/mLInsufficiency\\X09\\20 - Less than 30 ng/mLSufficiency\\X09\\30 - 100 ng/mL Performed By: #### 2 4323-8, 1988-05 ####[facility] LABORATORYCLIA [id number] [place] [id number] [place] [facility] CBC panel Auto (Bld)on 06-24 Erythrocyte distribution width (RBC) [Ratio] 14.0 % Normal 11.5-15.0 [facility] Comment on above: Order Comment: Speci men Type: BLOOD SPECIMENOrdering Facility: [facility] Address: [address] [place] [address] Performed By: #### 5 8410-2 ####[facility] LABORATORYCLIA [id number] [address] [place] Hematocrit (Bld) [Volume fraction] 45.4 % Normal 36.0-46.0 [facility] Comment on above: Order Comment: Speci men Type: BLOOD SPECIMENOrdering Facility: [facility] Address: [address] [place] [address] Performed By: #### 5 8410-2 ####[facility] LABORATORYCLIA [id number] [address] [place] Hemoglobin (Bld) [Mass/Vol] 15.2 g/dL Normal 11.5-15.5 [facility] Comment on above: Order Comment: Speci men Type: BLOOD SPECIMENOrdering Facility: [facility] Address: [address] [place] [address] Performed By: #### 5 8410-2 ####[facility] LABORATORYCLIA [id number] [place] [id number] [place] MCH (RBC) [Entitic mass] 29.9 pg Normal 26.0-34.0 [facility] Comment on above: Order Comment: Speci men Type: BLOOD SPECIMENOrdering Facility: [facility] Address: [address] [place] [address] Performed By: #### 5 8410-2 ####[facility] LABORATORYCLIA [id number] [place] [id number] [place] MCHC (RBC) [Mass/Vol] 33.5 g/dL Normal 30.5-36.0 [facility] Comment on above: Order Comment: Speci men Type: BLOOD SPECIMENOrdering Facility: [facility] Address: [address] [place] [address] Performed By: #### 5 8410-2 ####[facility] LABORATORYCLIA [id number] [place] [address] [place] MCV (RBC) [Entitic vol] 89.4 fL Normal 80.0-100.[address] [facility] Comment on above: Order Comment: Speci men Type: BLOOD SPECIMENOrdering Facility: [facility] Address: [address] [place] [address] Performed By: #### 5 8410-2 ####[facility] LABORATORYCLIA [id number] [place] [address] [place] Nucleated RBC (Bld) [#/Vol] 10*3/uL Normal <0.01 [facility] Comment on above: Order Comment: Speci men Type: BLOOD SPECIMENOrdering Facility: [facility] Address: [address] [place] [address] Performed By: #### 5 8410-2 ####[facility] LABORATORYCLIA [id number] [place] [address] [place] Platelet mean volume (Bld) [Entitic vol] 10.5 fL Normal 9.0-12.7 [facility] Comment on above: Order Comment: Speci men Type: BLOOD SPECIMENOrdering Facility: [facility] Address: [address] [place] [address] Performed By: #### 5 8410-2 ####[facility] LABORATORYCLIA [id number] [place] [address] [place] Platelets (Bld) [#/Vol] 106 10*3/uL Low 150-400 [facility] Comment on above: Order Comment: Speci men Type: BLOOD SPECIMENOrdering Facility: [facility] Address: [address] [place] [address] Performed By: #### 5 8410-2 ####[facility] LABORATORYCLIA [id number] [place] [id number] [facility] RBC (Bld) [#/Vol] 5.08 10*6/uL Normal 3.90-5.20 [facility] Comment on above: Order Comment: Speci men Type: BLOOD SPECIMENOrdering Facility: [facility] Address: [address] [place] [address] Performed By: #### 5 8410-2 ####[facility] LABORATORYCLIA [id number] [address] WBC (Bld) [#/Vol] 6.32 10*3/uL Normal 3.70-11.00 [facility] Comment on above: Order Comment: Speci men Type: BLOOD SPECIMENOrdering Facility: [facility] Address: [address] [place] [address] Performed By: #### 5 8410-2 ####[facility] LABORATORYCLIA [id number] [address] Comprehensive metabolic 2000 panelon 06-25-2023 Albumin [Mass/Vol] 3.9 g/dL Normal 3.2-5.0 [facility] Comment on above: Order Comment: Speci men Type: BLOOD SPECIMENOrdering Facility: [facility] Address: [address] [place] [address] Performed By: #### 2 4323-8, 1988-05 ####[facility] LABORATORYCLIA [id number] [address] ALP [Catalytic activity/Vol] 129 U/L High 45-117 [facility] Comment on above: Order Comment: Speci men Type: BLOOD SPECIMENOrdering Facility: [facility] Address: [address] [place] [address] Performed By: #### 2 4323-8, 1988-05 ####[facility] LABORATORYCLIA [id number] [place] [id number] [place] ALT [Catalytic activity/Vol] 87 U/L High 13-61 [facility] Comment on above: Order Comment: Speci men Type: BLOOD SPECIMENOrdering Facility: [facility] Address: [address] [place] [address] Result Comment: Resu lts may be falsely depressed after the administration of Sulfasalazine and/or Sulfapyridine. Performed By: #### 2 43205-15, 1988-05 ####[facility] LABORATORYCLIA [id number] [place] [id number] [place] Anion gap [Moles/Vol] 6 mmol/L Normal 5-16 [facility] Comment on above: Order Comment: Speci men Type: BLOOD SPECIMENOrdering Facility: [facility] Address: [address] [place] [address] Performed By: #### 2 43205-15, 1988-05 ####[facility] LABORATORYCLIA [id number] [address] [place] [facility] AST [Catalytic activity/Vol] 56 U/L High 8-34 [facility] Comment on above: Order Comment: Speci men Type: BLOOD SPECIMENOrdering Facility: [facility] Address: [address] [place] [address] Result Comment: Resu lts may be falsely depressed after the administration of Sulfasalazine and/or Sulfapyridine. Performed By: #### 2 43205-15, 1988-05 ####[facility] LABORATORYCLIA [id number] [place] [id number] [place] Bilirubin [Mass/Vol] 1.0 mg/dL Normal 0.2-1.0 [facility] Comment on above: Order Comment: Speci men Type: BLOOD SPECIMENOrdering Facility: [facility] Address: [address] [place] [address] Performed By: #### 2 43205-15, 1988-05 ####[facility] LABORATORYCLIA [id number] [place] [id number] [place] Calcium [Mass/Vol] 10.9 mg/dL High 8.5-10.5 [facility] Comment on above: Order Comment: Speci men Type: BLOOD SPECIMENOrdering Facility: [facility] Address: [address] [place] [address] Performed By: #### 2 43205-15, 1988-05 ####[facility] LABORATORYCLIA [id number] [place] [id number] [place] Chloride [Moles/Vol] 96 mmol/L Low 98-107 [facility] Comment on above: Order Comment: Speci men Type: BLOOD SPECIMENOrdering Facility: [facility] Address: [address] [place] [address] Performed By: #### 2 43205-15, 1988-05 ####[facility] LABORATORYCLIA [id number] [place] [address] [place] CO2 [Moles/Vol] 34 mmol/L High 21-32 [facility] Comment on above: Order Comment: Speci men Type: BLOOD SPECIMENOrdering Facility: [facility] Address: [address] [place] [address] Performed By: #### 2 4322-10, 1988-05 ####[facility] LABORATORYCLIA [id number] [place] [id number] [place] Creatinine [Mass/Vol] 0.98 mg/dL High 0.51-0.95 [facility] Comment on above: Order Comment: Speci men Type: BLOOD SPECIMENOrdering Facility: [facility] Address: [address] [place] [address] Result Comment: Linn ents receiving either N-Acetylcysteine (NAC) or Metamizole prior to venipuncture, may have falsely depressed results. Performed By: #### 2 43205-15, 1988-05 ####[facility] LABORATORYCLIA [id number] [place] [id number] [place] Creatinine and Glomerular filtration rate.predicted panel (S/P/Bld) 57 mL/min/1.73m??? Low >=60 [facility] Comment on above: Order Comment: Brady smith Type: BLOOD SPECIMENOrdering Facility: [facility] Address: [address] [place] [address] Result Comment: Esme mated Glomerular Filtration Rate [...] GFR. Performed By: #### 2 43238, 1988-05 ####[facility] LABORATORYCLIA [id number] [place] [address] [place] Glucose [Mass/Vol] 140 mg/dL High 70-100 [facility] Comment on above: Order Comment: Brady smith Type: BLOOD SPECIMENOrdering Facility: [facility] Address: [address] [place] [address] Result Comment: The [place] Diabetes Association (ADA) provides guidance for cutoff [...] Standards of Medical Care in Diabetes 2016, [place] [employer]. Diabetes Care. 2016.39(Suppl 1).Results may be falsely elevated after the administration of Sulfapyridine.Results may be falsely depressed after the administration of Sulfasalazine. Performed By: #### 2 4323-8, 1988-05 ####[facility] LABORATORYCLIA [id number] [place] [id number] [place] Potassium [Moles/Vol] 3.0 mmol/L Low 3.5-5.1 [facility] Comment on above: Order Comment: Brady smith Type: BLOOD SPECIMENOrdering Facility: [facility] Address: [address] [place] [address] Performed By: #### 2 4323-8, 1988-05 ####[facility] LABORATORYCLIA [id number] [place] [id number] [place] Protein [Mass/Vol] 7.3 g/dL Normal 6.0-8.5 [facility] Comment on above: Order Comment: Speci men Type: BLOOD SPECIMENOrdering Facility: [facility] Address: [address] [place] [address] Performed By: #### 2 4328, 1988-05 ####[facility] LABORATORYCLIA [id number] [place] [address] [place] Sodium [Moles/Vol] 136 mmol/L Normal 136-145 [facility] Comment on above: Order Comment: Speci men Type: BLOOD SPECIMENOrdering Facility: [facility] Address: [address] [place] [address] Performed By: #### 2 43205-15, 1988-05 ####[facility] LABORATORYCLIA [id number] [place] [address] [place] Urea nitrogen [Mass/Vol] 15 mg/dL Normal 7-26 [facility] Comment on above: Order Comment: Speci men Type: BLOOD SPECIMENOrdering Facility: [facility] Address: [address] [place] [address] Performed By: #### 2 4328, 1988-05 ####[facility] LABORATORYCLIA [id number] [place] [address] [place] .Auto Diffon 06-20-2023 Basophil, Absolute 0.0 10 3/mcL Normal 0.0-0.3 [facility] ([place]) Comment on above: Performed By: #### A DIFF, CBC, MDW, GFR, CMP, TROPHS, PBNP, ANEU #### [facility] [address] [place] [address] Basophils/100 WBC (Bld) 0.3 % Normal 0.0-2.5 A [facility] ([place]) Comment on above: Performed By: #### A DIFF, CBC, MDW, GFR, CMP, TROPHS, PBNP, ANEU #### [address] [address] Eosinophil, Absolute 0.1 10 3/mcL Normal 0.0-0.7 [facility] ([place]) Comment on above: Performed By: #### A DIFF, CBC, MDW, GFR, CMP, TROPHS, PBNP, ANEU #### [address] [address] Eosinophils/100 WBC (Bld) 1.4 % Normal 0.0-6.0 [facility] ([place]) Comment on above: Performed By: #### A DIFF, CBC, MDW, GFR, CMP, TROPHS, PBNP, ANEU #### [address] [address] Lymphocyte, Absolute 1.8 10 3/mcL Normal 0.9-4.3 [facility] ([place]) Comment on above: Performed By: #### A DIFF, CBC, MDW, GFR, CMP, TROPHS, PBNP, ANEU #### [address] [address] Lymphocytes/100 WBC (Bld) 24.4 % Normal 20.0-40.0 [facility] ([place]) Comment on above: Performed By: #### A DIFF, CBC, MDW, GFR, CMP, TROPHS, PBNP, ANEU #### [address] [address] Monocyte, Absolute 0.9 10 3/mcL Normal 0.1-1.4 [facility] ([place]) Comment on above: Performed By: #### A DIFF, CBC, MDW, GFR, CMP, TROPHS, PBNP, ANEU #### [address] [address] Monocytes/100 WBC (Bld) 11.9 % Normal 2.0-13.0 [facility] ([place]) Comment on above: Performed By: #### A DIFF, CBC, MDW, GFR, CMP, TROPHS, PBNP, ANEU #### [address] [address] Neutrophils/100 WBC (Bld) 62.0 % Normal 50.0-75.0 [facility] ([place]) Comment on above: Performed By: #### A DIFF, CBC, MDW, GFR, CMP, TROPHS, PBNP, ANEU #### [address] [address] .GFRon 06-20-2023 GFR >60 Normal [facility] ([place]) Comment on above: Result Comment: GFR Population [...] MDW, GFR, CMP, TROPHS, PBNP, ANEU #### [address] [address] GFR Non- 57 ml/min/1.73sqm Normal [facility] ([place]) Comment on above: Result Comment: GFR Population [...] MDW, GFR, CMP, TROPHS, PBNP, ANEU #### [address] [address] .NEUABSon 06-20-2023 Neutrophil, Absolute 4.5 10 3/mcL Normal 2.3-8.1 [facility] ([place]) Comment on above: Performed By: #### A DIFF, CBC, MDW, GFR, CMP, TROPHS, PBNP, ANEU #### [address] [address] BMPon 06-20-2023 BUN/Creatinine Ratio 24.5 ratio High 10.0-22.0 [facility] ([place]) Comment on above: Performed By: #### A DIFF, CBC, MDW, GFR, CMP, TROPHS, PBNP, ANEU #### [place] [address] Calcium [Mass/Vol] 9.7 mg/dL Normal 8.7-10.4 [facility] ([place]) Comment on above: Performed By: #### A DIFF, CBC, MDW, GFR, CMP, TROPHS, PBNP, ANEU #### [address] [address] Chloride [Moles/Vol] 99 mmol/L Normal 98-110 [facility] ([place]) Comment on above: Performed By: #### A DIFF, CBC, MDW, GFR, CMP, TROPHS, PBNP, ANEU #### [address] [address] CO2 [Moles/Vol] 33 mmol/L High 22-32 [facility] ([place]) Comment on above: Performed By: #### A DIFF, CBC, MDW, GFR, CMP, TROPHS, PBNP, ANEU #### [address] [address] Creatinine [Mass/Vol] 0.94 mg/dL Normal 0.50-1.20 [facility] ([place]) Comment on above: Performed By: #### A DIFF, CBC, MDW, GFR, CMP, TROPHS, PBNP, ANEU #### [address] [address] Electrolyte Balance 4.0 mEq/L Normal 4.0-15.0 [facility] ([place]) Comment on above: Performed By: #### A DIFF, CBC, MDW, GFR, CMP, TROPHS, PBNP, ANEU #### [address] [address] Glucose [Mass/Vol] 125 mg/dL High 82-115 [facility] ([place]) Comment on above: Performed By: #### A DIFF, CBC, MDW, GFR, CMP, TROPHS, PBNP, ANEU #### [address] [address] Potassium [Moles/Vol] 3.4 mmol/L Low 3.5-5.0 [facility] ([place]) Comment on above: Performed By: #### A DIFF, CBC, MDW, GFR, CMP, TROPHS, PBNP, ANEU #### [address] [address] Sodium [Moles/Vol] 136 mmol/L Normal 136-145 [facility] ([place]) Comment on above: Performed By: #### A DIFF, CBC, MDW, GFR, CMP, TROPHS, PBNP, ANEU #### [address] [address] Urea nitrogen [Mass/Vol] 23.0 mg/dL High 8.0-22.0 [facility] ([place]) Comment on above: Performed By: #### A DIFF, CBC, MDW, GFR, CMP, TROPHS, PBNP, ANEU #### [address] [address] CBCon 06-20-2023 Erythrocyte distribution width (RBC) [Ratio] 14.2 % Normal 11.5-15.5 [facility] ([place]) Comment on above: Performed By: #### A DIFF, CBC, MDW, GFR, CMP, TROPHS, PBNP, ANEU #### [address] [address] Hematocrit (Bld) [Volume fraction] 42.1 % Normal 34.0-46.0 [facility] ([place]) Comment on above: Performed By: #### A DIFF, CBC, MDW, GFR, CMP, TROPHS, PBNP, ANEU #### [place] [address] Hgb 14.2 G/dL Normal 12.0-16.0 [facility] ([place]) Comment on above: Performed By: #### A DIFF, CBC, MDW, GFR, CMP, TROPHS, PBNP, ANEU #### [place] [address] MCH (RBC) [Entitic mass] 30.5 pg Normal 27.0-33.0 [facility] ([place]) Comment on above: Performed By: #### A DIFF, CBC, MDW, GFR, CMP, TROPHS, PBNP, ANEU #### [place] [address] MCHC 33.8 G/dL Normal 32.0-36.0 [facility] ([place] Comment on above: Performed By: #### A DIFF, CBC, MDW, GFR, CMP, TROPHS, PBNP, ANEU #### [place] [address] MCV (RBC) [Entitic vol] 90.3 fL Normal 80.0-99.0 A [facility] ([place] Comment on above: Performed By: #### A DIFF, CBC, MDW, GFR, CMP, TROPHS, PBNP, ANEU #### [place] [address] Platelet 99 10 3/mcL Low 150-450 [facility] ([place]) Comment on above: Performed By: #### A DIFF, CBC, MDW, GFR, CMP, TROPHS, PBNP, ANEU #### [place] [address] Platelet mean volume (Bld) [Entitic vol] 7.9 fL Normal 6.6-10.5 [facility] ([place]) Comment on above: Performed By: #### A DIFF, CBC, MDW, GFR, CMP, TROPHS, PBNP, ANEU #### [place] [address] RBC 4.67 10 6/mcL Normal 4.10-5.30 [facility] ([place]) Comment on above: Performed By: #### A DIFF, CBC, MDW, GFR, CMP, TROPHS, PBNP, ANEU #### [address] [address] WBC 7.3 10 3/mcL Normal 4.5-10.8 [facility] ([place]) Comment on above: Performed By: #### A DIFF, CBC, MDW, GFR, CMP, TROPHS, PBNP, ANEU #### [address] [address] LABORATORYOrdered By: SYSTEM SYSTEM on 06-20-2023 Basophils (Bld) [#/Vol] 0.0 103/mcL Normal 0.0 - 0.3 10^3/mcL Workflow SS Basophils/100 WBC (Bld) 0.3 % Normal 0.0 - 2.5 % Workflow SS Calcium [Mass/Vol] 9.7 mg/dL Normal [...] rate/Area] ml/min/1.73sqm Invalid Interpretation Code Chemistry S Comment on above: Interpretive Data: [...] [Vol rate/Area] 57 ml/min/1.73sqm Invalid Interpretation Code Chemistry S Comment on above: Interpretive Data: [...] 125 mg/dL High 82 - 115 mg/dL ADM SS Hematocrit (Bld) [Volume fraction] 42.1 % Normal 34.0 - 46.0 % Workflow SS Hemoglobin (Bld) [Mass/Vol] 14.2 G/dL Normal 12.0 - 16.0 G/dL Workflow SS Lymphocytes (Bld) [#/Vol] 1.8 103/mcL Normal 0.9 - 4.3 10^3/mcL Workflow SS Lymphocytes/100 WBC (Bld) 24.4 % Normal 20.0 - 40.0 % Workflow SS MCH (RBC) [Entitic mass] 30.5 pg Normal 27. 0 - 33.0 pg AH Workflow SS MCHC 33.8 G/dL Normal 32.0 - 36.0 G/dL Workflow SS MCV (RBC) [Entitic vol] 90.3 fL Normal 80.0 - 99.0 fL Workflow SS Monocytes (Bld) [#/Vol] 0.9 103/mcL [...] 7.3 103/mcL Normal 4.5 - 10.8 10^3/mcL AH Workflow SS .Auto Diffon 06-19-2023 Basophil, Absolute 0.0 10 3/mcL Normal 0.0-0.3 [facility] ([place]) Comment on above: Performed By: #### A DIFF, CBC, MDW, GFR, CMP, TROPHS, PBNP, ANEU #### [address] [address] Basophils/100 WBC (Bld) 0.1 % Normal 0.0-2.5 A [facility] ([place] Comment on above: Performed By: #### A DIFF, CBC, MDW, GFR, CMP, TROPHS, PBNP, ANEU #### [address] [address] Eosinophil, Absolute 0.0 10 3/mcL Normal 0.0-0.7 [facility] ([place]) Comment on above: Performed By: #### A DIFF, CBC, MDW, GFR, CMP, TROPHS, PBNP, ANEU #### [address] [address] Eosinophils/100 WBC (Bld) 0.1 % Normal 0.0-6.0 [facility] ([place]) Comment on above: Performed By: #### A DIFF, CBC, MDW, GFR, CMP, TROPHS, PBNP, ANEU #### [address] [address] Lymphocyte, Absolute 1.1 10 3/mcL Normal 0.9-4.3 [facility] ([place]) Comment on above: Performed By: #### A DIFF, CBC, MDW, GFR, CMP, TROPHS, PBNP, ANEU #### [address] [address] Lymphocytes/100 WBC (Bld) 14.2 % Low 20.0-40.0 [facility] ([place]) Comment on above: Performed By: #### A DIFF, CBC, MDW, GFR, CMP, TROPHS, PBNP, ANEU #### [address] [address] Monocyte, Absolute 0.8 10 3/mcL Normal 0.1-1.4 [facility] ([place]) Comment on above: Performed By: #### A DIFF, CBC, MDW, GFR, CMP, TROPHS, PBNP, ANEU #### [address] [address] Monocytes/100 WBC (Bld) 10.3 % Normal 2.0-13.0 [facility] ([place]) Comment on above: Performed By: #### A DIFF, CBC, MDW, GFR, CMP, TROPHS, PBNP, ANEU #### [address] [address] Neutrophils/100 WBC (Bld) 75.3 % High 50.0-75.0 [facility] ([place]) Comment on above: Performed By: #### A DIFF, CBC, MDW, GFR, CMP, TROPHS, PBNP, ANEU #### [address] [address] .GFRon 06-19-2023 GFR Non- 53 ml/min/1.73sqm Normal [facility] ([place]) Comment on above: Result Comment: GFR Population [...] MDW, GFR, CMP, TROPHS, PBNP, ANEU #### [place] [id number] GFR >60 Normal [facility] ([place]) Comment on above: Result Comment: GFR Population [...] MDW, GFR, CMP, TROPHS, PBNP, ANEU #### [address] [address] .NEUABSon 06-19-2023 Neutrophil, Absolute 5.8 10 3/mcL Normal 2.3-8.1 [facility] ([place]) Comment on above: Performed By: #### A DIFF, CBC, MDW, GFR, CMP, TROPHS, PBNP, ANEU #### [address] [address] CBCon 06-19-2023 Erythrocyte distribution width (RBC) [Ratio] 14.4 % Normal 11.5-15.5 [facility] ([place]) Comment on above: Order Comment: recol lect - clotted - 06/19/2023 06:37:34 EDT Performed By: #### A DIFF, CBC, MDW, GFR, CMP, TROPHS, PBNP, ANEU #### [place] [address] Hematocrit (Bld) [Volume fraction] 41.1 % Normal 34.0-46.0 [facility] ([place]) Comment on above: Order Comment: recol lect - clotted - 06/19/2023 06:37:34 EDT Performed By: #### A DIFF, CBC, MDW, GFR, CMP, TROPHS, PBNP, ANEU #### [place] [address] Hgb 14.0 G/dL Normal 12.0-16.0 [facility] ([place]) Comment on above: Order Comment: recol lect - clotted - 06/19/2023 06:37:34 EDT Performed By: #### A DIFF, CBC, MDW, GFR, CMP, TROPHS, PBNP, ANEU #### [place] [address] MCH (RBC) [Entitic mass] 30.2 pg Normal 27.0-33.0 [facility] ([place]) Comment on above: Order Comment: recol lect - clotted - 06/19/2023 06:37:34 EDT Performed By: #### A DIFF, CBC, MDW, GFR, CMP, TROPHS, PBNP, ANEU #### [place] [address] MCHC 34.0 G/dL Normal 32.0-36.0 [facility] ([place]) Comment on above: Order Comment: recol lect - clotted - 06/19/2023 06:37:34 EDT Performed By: #### A DIFF, CBC, MDW, GFR, CMP, TROPHS, PBNP, ANEU #### [place] [id number] MCV (RBC) [Entitic vol] 88.8 fL Normal 80.0-99.0 A [facility] ([place]) Comment on above: Order Comment: recol lect - clotted - 06/19/2023 06:37:34 EDT Performed By: #### A DIFF, CBC, MDW, GFR, CMP, TROPHS, PBNP, ANEU #### [address] [address] Platelet 107 10 3/mcL Low 150-450 [facility] ([place]) Comment on above: Order Comment: recol lect - clotted - 06/19/2023 06:37:34 EDT Performed By: #### A DIFF, CBC, MDW, GFR, CMP, TROPHS, PBNP, ANEU #### [place] [address] Platelet mean volume (Bld) [Entitic vol] 7.7 fL Normal 6.6-10.5 [facility] ([place]) Comment on above: Order Comment: recol lect - clotted - 06/19/2023 06:37:34 EDT Performed By: #### A DIFF, CBC, MDW, GFR, CMP, TROPHS, PBNP, ANEU #### [place] [address] RBC 4.62 10 6/mcL Normal 4.10-5.30 [facility] ([place]) Comment on above: Order Comment: recol lect - clotted - 06/19/2023 06:37:34 EDT Performed By: #### A DIFF, CBC, MDW, GFR, CMP, TROPHS, PBNP, ANEU #### [address] [address] WBC 7.7 10 3/mcL Normal 4.5-10.8 [facility] ([place]) Comment on above: Order Comment: recol lect - clotted - 06/19/2023 06:37:34 EDT Performed By: #### A DIFF, CBC, MDW, GFR, CMP, TROPHS, PBNP, ANEU #### [address] [address] CMPon 06-19-2023 Albumin Level 3.6 G/dL Normal 3.2-4.8 [facility] ([place]) Comment on above: Performed By: #### A DIFF, CBC, MDW, GFR, CMP, TROPHS, PBNP, ANEU #### [place] [id number] Albumin/Globulin [Mass ratio] 1.1 {ratio} Normal 0.9-1.6 [facility] ([place]) Comment on above: Performed By: #### A DIFF, CBC, MDW, GFR, CMP, TROPHS, PBNP, ANEU #### [address] [address] ALP [Catalytic activity/Vol] 95 U/L Normal 38-126 [facility] ([place]) Comment on above: Performed By: #### A DIFF, CBC, MDW, GFR, CMP, TROPHS, PBNP, ANEU #### [address] [address] ALT [Catalytic activity/Vol] 15 U/L Normal 10-49 [facility] ([place]) Comment on above: Performed By: #### A DIFF, CBC, MDW, GFR, CMP, TROPHS, PBNP, ANEU #### [address] [address] AST [Catalytic activity/Vol] 20 U/L Normal 8-34 [facility] ([place]) Comment on above: Performed By: #### A DIFF, CBC, MDW, GFR, CMP, TROPHS, PBNP, ANEU #### [address] [address] Bili Total 0.70 mg/dL Normal 0.20-1.20 [facility] ([place]) Comment on above: Result Comment: Use of this assay is not recommended for patients undergoing treatment with eltrombopag due to the potential for falsely elevated results. Performed By: #### A DIFF, CBC, MDW, GFR, CMP, TROPHS, PBNP, ANEU #### [address] [address] BUN/Creatinine Ratio 20.0 ratio Normal 10.0-22.0 [facility] ([place]) Comment on above: Performed By: #### A DIFF, CBC, MDW, GFR, CMP, TROPHS, PBNP, ANEU #### [address] [address] Calcium [Mass/Vol] 10.6 mg/dL High 8.7-10.4 [facility] ([place]) Comment on above: Performed By: #### A DIFF, CBC, MDW, GFR, CMP, TROPHS, PBNP, ANEU #### [address] [address] Chloride [Moles/Vol] 95 mmol/L Low 98-110 [facility] ([place]) Comment on above: Performed By: #### A DIFF, CBC, MDW, GFR, CMP, TROPHS, PBNP, ANEU #### [address] [address] CO2 [Moles/Vol] 34 mmol/L High 22-32 [facility] ([place]) Comment on above: Performed By: #### A DIFF, CBC, MDW, GFR, CMP, TROPHS, PBNP, ANEU #### [address] [address] Creatinine [Mass/Vol] 1.00 mg/dL Normal 0.50-1.20 [facility] ([place] Comment on above: Performed By: #### A DIFF, CBC, MDW, GFR, CMP, TROPHS, PBNP, ANEU #### [address] [address] Electrolyte Balance 10.0 mEq/L Normal 4.0-15.0 [facility] ([place]) Comment on above: Performed By: #### A DIFF, CBC, MDW, GFR, CMP, TROPHS, PBNP, ANEU #### [address] [address] Globulin 3.3 G/dL Normal 1.5-3.8 [facility] ([place]) Comment on above: Performed By: #### A DIFF, CBC, MDW, GFR, CMP, TROPHS, PBNP, ANEU #### [address] [address] Glucose [Mass/Vol] 120 mg/dL High 82-115 [facility] ([place]) Comment on above: Performed By: #### A DIFF, CBC, MDW, GFR, CMP, TROPHS, PBNP, ANEU #### [address] [address] Potassium [Moles/Vol] 3.6 mmol/L Normal 3.5-5.0 [facility] ([place] Comment on above: Performed By: #### A DIFF, CBC, MDW, GFR, CMP, TROPHS, PBNP, ANEU #### [place] [phone] Sodium [Moles/Vol] 139 mmol/L Normal 136-145 [facility] ([place]) Comment on above: Performed By: #### A DIFF, CBC, MDW, GFR, CMP, TROPHS, PBNP, ANEU #### [place] [address] Total Protein 6.9 G/dL Normal 5.7-8.2 [facility] ([place]) Comment on above: Result Comment: No te - New Reference Range in effect 19 Performed By: #### A DIFF, CBC, MDW, GFR, CMP, TROPHS, PBNP, ANEU #### [place] [address] Urea nitrogen [Mass/Vol] 20.0 mg/dL Normal 8.0-22.0 [facility] ([place]) Comment on above: Performed By: #### A DIFF, CBC, MDW, GFR, CMP, TROPHS, PBNP, ANEU #### [address] [address] LABORATORYOrdered By: SYSTEM SYSTEM on 06-19-2023 Basophils [...] Normal 8 - 34 U/L ADM SS Bilirubin [Mass/Vol] 0.70 mg/dL Normal [...] rate/Area] ml/min/1.73sqm Invalid Interpretation Code Chemistry S Comment on above: Interpretive Data: [...] [Vol rate/Area] 53 ml/min/1.73sqm Invalid Interpretation Code Chemistry S Comment on above: Interpretive Data: [...] mmol/L Normal 136 - 145 mEq/L ADM Troponin I.cardiac DL <= 0.01 ng/mL [Mass/Vol] 9 ng/L Normal 0 - 34 ng/L ADM Comment on above: Interpretive Data: High Sensitive Troponin I Reference Ranges: Female: 0-34 ng/L Male: 0-54 ng/L Testing performed on [employer] analyzer using direct chemiluminescent technology. Urea nitrogen [Mass/Vol] 20.0 mg/dL Normal 8.0 - 22.0 mg/dL ADM Urea nitrogen/Creatinine [Mass ratio] 20.0 ratio Normal 10.0 - 22.0 ratio ADM SS MGon 06-19-2023 Magnesium [Mass/Vol] 1.8 mg/dL Normal 1.6-2.4 [facility] ([place]) Comment on above: Performed By: #### A DIFF, CBC, MDW, GFR, CMP, TROPHS, PBNP, ANEU #### [address] [address] TROPHSon 06-19-2023 High Sensitivity Troponin I 9 ng/L Normal 0-34 [facility] ([place]) Comment on above: Result Comment: High Sensitive Troponin I Reference Ranges: Female: 0-34 ng/L Male: 0-54 ng/L Testing performed on [employer] analyzer using direct chemiluminescent technology. Performed By: #### A DIFF, CBC, MDW, GFR, CMP, TROPHS, PBNP, ANEU #### [address] [address] .Auto Diffon 06-18-2023 Basophil, Absolute 0.0 10 3/mcL Normal 0.0-0.3 [facility] ([place]) Comment on above: Performed By: #### A DIFF, CBC, MDW, GFR, CMP, TROPHS, PBNP, ANEU #### [address] [address] Basophils/100 WBC (Bld) 0.5 % Normal 0.0-2.5 A [facility] ([place]) Comment on above: Performed By: #### A DIFF, CBC, MDW, GFR, CMP, TROPHS, PBNP, ANEU #### [address] [address] Eosinophil, Absolute 0.2 10 3/mcL Normal 0.0-0.7 [facility] ([place]) Comment on above: Performed By: #### A DIFF, CBC, MDW, GFR, CMP, TROPHS, PBNP, ANEU #### [address] [address] Eosinophils/100 WBC (Bld) 4.1 % Normal 0.0-6.0 [facility] ([place]) Comment on above: Performed By: #### A DIFF, CBC, MDW, GFR, CMP, TROPHS, PBNP, ANEU #### [address] [address] Lymphocyte, Absolute 1.5 10 3/mcL Normal 0.9-4.3 [facility] ([place]) Comment on above: Performed By: #### A DIFF, CBC, MDW, GFR, CMP, TROPHS, PBNP, ANEU #### [address] [address] Lymphocytes/100 WBC (Bld) 24.1 % Normal 20.0-40.0 [facility] ([place]) Comment on above: Performed By: #### A DIFF, CBC, MDW, GFR, CMP, TROPHS, PBNP, ANEU #### [address] [address] Monocyte, Absolute 0.6 10 3/mcL Normal 0.1-1.4 [facility] ([place]) Comment on above: Performed By: #### A DIFF, CBC, MDW, GFR, CMP, TROPHS, PBNP, ANEU #### [address] [address] Monocytes/100 WBC (Bld) 10.0 % Normal 2.0-13.0 [facility] ([place]) Comment on above: Performed By: #### A DIFF, CBC, MDW, GFR, CMP, TROPHS, PBNP, ANEU #### [address] [address] Neutrophils/100 WBC (Bld) 61.3 % Normal 50.0-75.0 [facility] ([place]) Comment on above: Performed By: #### A DIFF, CBC, MDW, GFR, CMP, TROPHS, PBNP, ANEU #### [address] [address] .GFRon 06-18-2023 GFR 54 ml/min/1.73sqm Normal [facility] ([place]) Comment on above: Result Comment: GFR [...] MDW, GFR, CMP, TROPHS, PBNP, ANEU #### [address] [address] GFR Non- 45 ml/min/1.73sqm Normal [facility] ([place]) Comment on above: Result Comment: GFR Population [...] MDW, GFR, CMP, TROPHS, PBNP, ANEU #### [address] [address] .MDWon 06-18-2023 Monocyte Distribution Width 18.33 Normal 0.00-20.00 [facility] ([place]) Comment on above: Result Comment: For ED adult patients suspected of sepsis, MDW<=20.0 does not rule out sepsis or risk of sepsis Performed By: #### A DIFF, CBC, MDW, GFR, CMP, TROPHS, PBNP, ANEU #### [address] [address] .NEUABSon 06-18-2023 Neutrophil, Absolute 3.7 10 3/mcL Normal 2.3-8.1 [facility] ([place]) Comment on above: Performed By: #### A DIFF, CBC, MDW, GFR, CMP, TROPHS, PBNP, ANEU #### [address] [address] BGon 06-18-2023 Base excess Calc (Bld) [Moles/Vol] 7.9 mmol/L Normal [facility] ([place]) Comment on above: Performed By: #### A DIFF, CBC, MDW, GFR, CMP, TROPHS, PBNP, ANEU #### [address] [address] CO2 [Moles/Vol] 35.3 mmol/L High 22.0-30.0 [facility] ([place]) Comment on above: Performed By: #### A DIFF, CBC, MDW, GFR, CMP, TROPHS, PBNP, ANEU #### [place] [id number] HCO3 (Bld) [Moles/Vol] 33.7 mmol/L High 21.0-29.0 A [facility] ([place]) Comment on above: Performed By: #### A DIFF, CBC, MDW, GFR, CMP, TROPHS, PBNP, ANEU #### [address] [address] Oxygen (Bld) [Partial pressure] 63.6 mm[Hg] Low 74.0-108.0 [facility] ([place]) Comment on above: Performed By: #### A DIFF, CBC, MDW, GFR, CMP, TROPHS, PBNP, ANEU #### [address] [address] Oxygen saturation in Blood 92.9 % Normal 92.0-96.0 [facility] ([place]) Comment on above: Performed By: #### A DIFF, CBC, MDW, GFR, CMP, TROPHS, PBNP, ANEU #### [address] [address] pCO2 51.5 mmHg High 32.0-46.0 [facility] ([place]) Comment on above: Performed By: #### A DIFF, CBC, MDW, GFR, CMP, TROPHS, PBNP, ANEU #### [address] [address] pH (Bld) 7.434 [pH] Normal 7.380-7.460 [facility] ([place]) Comment on above: Performed By: #### A DIFF, CBC, MDW, GFR, CMP, TROPHS, PBNP, ANEU #### [address] [address] CBCon 06-18-2023 Erythrocyte distribution width (RBC) [Ratio] 14.3 % Normal 11.5-15.5 [facility] ([place]) Comment on above: Performed By: #### A DIFF, CBC, MDW, GFR, CMP, TROPHS, PBNP, ANEU #### [place] [address] Hematocrit (Bld) [Volume fraction] 44.3 % Normal 34.0-46.0 [facility] ([place]) Comment on above: Performed By: #### A DIFF, CBC, MDW, GFR, CMP, TROPHS, PBNP, ANEU #### [place] [id number] Hgb 15.1 G/dL Normal 12.0-16.0 [facility] ([place]) Comment on above: Performed By: #### A DIFF, CBC, MDW, GFR, CMP, TROPHS, PBNP, ANEU #### [place] [id number] MCH (RBC) [Entitic mass] 31.1 pg Normal 27.0-33.0 [facility] ([place]) Comment on above: Performed By: #### A DIFF, CBC, MDW, GFR, CMP, TROPHS, PBNP, ANEU #### [place] [id number] MCHC 34.1 G/dL Normal 32.0-36.0 [facility] ([place]) Comment on above: Performed By: #### A DIFF, CBC, MDW, GFR, CMP, TROPHS, PBNP, ANEU #### [place] [id number] MCV (RBC) [Entitic vol] 91.1 fL Normal 80.0-99.0 A [facility] ([place]) Comment on above: Performed By: #### A DIFF, CBC, MDW, GFR, CMP, TROPHS, PBNP, ANEU #### [place] [id number] Platelet 139 10 3/mcL Low 150-450 [facility] ([place]) Comment on above: Performed By: #### A DIFF, CBC, MDW, GFR, CMP, TROPHS, PBNP, ANEU #### [place] [id number] Platelet mean volume (Bld) [Entitic vol] 8.8 fL Normal 6.6-10.5 [facility] ([place]) Comment on above: Performed By: #### A DIFF, CBC, MDW, GFR, CMP, TROPHS, PBNP, ANEU #### [place] [id number] RBC 4.87 10 6/mcL Normal 4.10-5.30 [facility] ([place]) Comment on above: Performed By: #### A DIFF, CBC, MDW, GFR, CMP, TROPHS, PBNP, ANEU #### [place] [address] WBC 6.0 10 3/mcL Normal 4.5-10.8 [facility] ([place]) Comment on above: Performed By: #### A DIFF, CBC, MDW, GFR, CMP, TROPHS, PBNP, ANEU #### [address] [address] CMPon 06-18-2023 Albumin Level 4.1 G/dL Normal 3.2-4.8 [facility] ([place]) Comment on above: Performed By: #### A DIFF, CBC, MDW, GFR, CMP, TROPHS, PBNP, ANEU #### [place] [id number] Albumin/Globulin [Mass ratio] 1.2 {ratio} Normal 0.9-1.6 [facility] ([place]) Comment on above: Performed By: #### A DIFF, CBC, MDW, GFR, CMP, TROPHS, PBNP, ANEU #### [place] [id number] ALP [Catalytic activity/Vol] 105 U/L Normal 38-126 [facility] ([place]) Comment on above: Performed By: #### A DIFF, CBC, MDW, GFR, CMP, TROPHS, PBNP, ANEU #### [address] [address] ALT [Catalytic activity/Vol] 14 U/L Normal 10-49 [facility] ([place]) Comment on above: Performed By: #### A DIFF, CBC, MDW, GFR, CMP, TROPHS, PBNP, ANEU #### [address] [address] AST [Catalytic activity/Vol] 20 U/L Normal 8-34 [facility] ([place]) Comment on above: Performed By: #### A DIFF, CBC, MDW, GFR, CMP, TROPHS, PBNP, ANEU #### [address] [address] Bili Total 0.60 mg/dL Normal 0.20-1.20 [facility] ([place]) Comment on above: Result Comment: Use of this assay is not recommended for patients undergoing treatment with eltrombopag due to the potential for falsely elevated results. Performed By: #### A DIFF, CBC, MDW, GFR, CMP, TROPHS, PBNP, ANEU #### [address] [address] BUN/Creatinine Ratio 14.8 ratio Normal 10.0-22.0 [facility] ([place]) Comment on above: Performed By: #### A DIFF, CBC, MDW, GFR, CMP, TROPHS, PBNP, ANEU #### [address] [address] Calcium [Mass/Vol] 11.1 mg/dL High 8.7-10.4 [facility] ([place]) Comment on above: Performed By: #### A DIFF, CBC, MDW, GFR, CMP, TROPHS, PBNP, ANEU #### [address] [address] Chloride [Moles/Vol] 96 mmol/L Low 98-110 [facility] ([place]) Comment on above: Performed By: #### A DIFF, CBC, MDW, GFR, CMP, TROPHS, PBNP, ANEU #### [address] [address] CO2 [Moles/Vol] 37 mmol/L High 22-32 [facility] ([place]) Comment on above: Performed By: #### A DIFF, CBC, MDW, GFR, CMP, TROPHS, PBNP, ANEU #### [address] [address] Creatinine [Mass/Vol] 1.15 mg/dL Normal 0.50-1.20 [facility] ([place]) Comment on above: Performed By: #### A DIFF, CBC, MDW, GFR, CMP, TROPHS, PBNP, ANEU #### [address] [address] Electrolyte Balance 3.0 mEq/L Low 4.0-15.0 [facility] ([place]) Comment on above: Performed By: #### A DIFF, CBC, MDW, GFR, CMP, TROPHS, PBNP, ANEU #### [address] [address] Globulin 3.5 G/dL Normal 1.5-3.8 [facility] ([place]) Comment on above: Performed By: #### A DIFF, CBC, MDW, GFR, CMP, TROPHS, PBNP, ANEU #### [address] [address] Glucose [Mass/Vol] 94 mg/dL Normal 82-115 [facility] ([place]) Comment on above: Performed By: #### A DIFF, CBC, MDW, GFR, CMP, TROPHS, PBNP, ANEU #### [address] [address] Potassium [Moles/Vol] 3.5 mmol/L Normal 3.5-5.0 [facility] ([place]) Comment on above: Performed By: #### A DIFF, CBC, MDW, GFR, CMP, TROPHS, PBNP, ANEU #### [address] [address] Sodium [Moles/Vol] 136 mmol/L Normal 136-145 [facility] ([place]) Comment on above: Performed By: #### A DIFF, CBC, MDW, GFR, CMP, TROPHS, PBNP, ANEU #### [address] [address] Total Protein 7.6 G/dL Normal 5.7-8.2 [facility] ([place]) Comment on above: Result Comment: No te - New Reference Range in effect 19 Performed By: #### A DIFF, CBC, MDW, GFR, CMP, TROPHS, PBNP, ANEU #### [address] [address] Urea nitrogen [Mass/Vol] 17.0 mg/dL Normal 8.0-22.0 [facility] ([place]) Comment on above: Performed By: #### A DIFF, CBC, MDW, GFR, CMP, TROPHS, PBNP, ANEU #### [place] [id number] DDHSon 06-18-2023 D-Dimer HS <200 Normal 0-230 [facility] ([place]) Comment on above: Order Comment: ER is [...] MDW, GFR, CMP, TROPHS, PBNP, ANEU #### [address] [address] LABORATORYOrdered By: SYSTEM SYSTEM on 06-18-2023 TSH Qn 31.216 mIU/mL High 0.550 - 4.780 mIU/mL AH ADM SS Comment on above: Interpretive Data: * *Note - New Reference Range in effect 19 Troponin I.cardiac DL <= 0.01 ng/mL [Mass/Vol] 8 ng/L Normal 0 - 34 ng/L AH ADM SS Comment on above: Interpretive Data: High Sensitive Troponin I Reference Ranges: Female: 0-34 ng/L Male: 0-54 ng/L Testing performed on [employer] analyzer using direct chemiluminescent technology. Albumin BCP [...] [Vol rate/Area] 54 ml/min/1.73sqm Invalid Interpretation Code [facility] Comment on above: Interpretive Data: GFR Population [...] [Vol rate/Area] 45 ml/min/1.73sqm Invalid Interpretation Code [facility] Comment on above: Interpretive Data: GFR Population [...] 15.1 G/dL Normal 12.0 - 16.0 G/dL Workflow SS Lymphocytes (Bld) [#/Vol] 1.5 103/mcL Normal 0.9 - 4.3 10^3/mcL AH Workflow SS Lymphocytes/100 WBC (Bld) 24.1 % Normal 20.0 - 40.0 % AH Workflow SS MCH (RBC) [Entitic mass] 31.1 pg Normal 27. 0 - 33.0 pg AH Workflow SS MCHC 34.1 G/dL Normal 32.0 - 36.0 G/dL AH Workflow SS MCV (RBC) [Entitic vol] 91.1 fL Normal 80.0 - 99.0 fL AH Workflow SS Monocyte distribution width Auto (Bld) [Entitic vol] 18.33 1 Normal 0.00 - 20.00 AH Workflow SS Comment on above: Result Comment: For ED adult patients suspected of sepsis, MDW<=20.0 does not rule out sepsis or risk of sepsis Monocytes (Bld) [#/Vol] 0.6 103/mcL Normal 0.1 - 1.4 10^3/mcL AH Workflow SS Monocytes/100 WBC (Bld) 10.0 % [...] mEq/L AH ADM SS Urea nitrogen [Mass/Vol] 17.0 mg/dL Normal 8.0 - 22.0 mg/dL AH ADM SS Urea nitrogen/Creatinine [Mass ratio] 14.8 ratio Normal 10.0 - 22.0 ratio AH ADM SS WBC (Bld) [#/Vol] 6.0 103/mcL Normal 4.5 - 10.8 10^3/mcL AH Workflow SS LABORATORYOrdered By: Chela washing[place] on 06-18-2023 Base Excess 7.9 mmol/L Invalid Interpretation Code AH Main Rapid Comm SS CO2 [Moles/Vol] 35.3 mmol/L High 22.0 - 30.0 mmol/L AH Main Rapid Comm SS HCO3 (Bld) [Moles/Vol] 33.7 mmol/L High 21.0 - 29.0 mmol/L AH Main Rapid Comm SS Oxygen (Bld) [Partial pressure] 63.6 mm[Hg] Low 74.0 - 108.0 mm Hg AH Main Rapid Comm SS pCO2 51.5 mm[Hg] High 32.0 - 46.0 mm Hg AH Main Rapid Comm SS pH (Bld) 7.434 [pH] Normal 7.380 - 7.460 AH Main Rapid Comm SS LABORATORYOrdered By: Shabbir Pederson on 06-18-2023 D-Dimer HS ng/mL D-DU Normal 0 - 230 ng/mL D-DU [employer] SS Comment on above: Result Comment: [...] 0.2-1.0 AH Auto Urine SS LABORATORYOrdered By: Emma Durbin on 06-18-2023 Natriuretic peptide.B prohormone N-Terminal [...] ng/L Male: 0-54 ng/L Testing performed on [employer] IM analyzer using direct chemiluminescent technology. PBNPon 06-18-2023 Natriuretic peptide B (Bld) [Mass/Vol] 123 pg/mL Normal 0-1800 [facility] ([place]) Comment on above: Result Comment: NT-p roBNP results of less than 300 pg/mL effectively rules out acute congestive heart failure with 99% negative predictive value. Performed By: #### B MP, GFR, TSH #### [address] 06-18-2023 High Sensitivity Troponin I 8 ng/L Normal 0-34 [facility] ([place]) Comment on above: Result Comment: High Sensitive Troponin I Reference Ranges: Female: 0-34 ng/L Male: 0-54 ng/L Testing performed on [employer] IM analyzer using direct chemiluminescent technology. Performed By: #### A DIFF, CBC, MDW, GFR, CMP, TROPHS, PBNP, ANEU #### [place] [address] High Sensitivity Troponin I 8 ng/L Normal 0-34 [facility] ([place]) Comment on above: Result Comment: High Sensitive Troponin I Reference Ranges: Female: 0-34 ng/L Male: 0-54 ng/L Testing performed on [employer] IM analyzer using direct chemiluminescent technology. Performed By: #### B MP, GFR, TSH #### [place] [address] High Sensitivity Troponin I 8 ng/L Normal 0-34 [facility] ([place]) Comment on above: Result Comment: High Sensitive Troponin I Reference Ranges: Female: 0-34 ng/L Male: 0-54 ng/L Testing performed on [employer] IM analyzer using direct chemiluminescent technology. Performed By: #### A DIFF, CBC, MDW, GFR, CMP, TROPHS, PBNP, ANEU #### [address] 06-18-2023 TSH 31.216 mIU/mL High 0.550-4.780 [facility] ([place]) Comment on above: Order Comment: add o n lab Result Comment: No te - New Reference Range in effect 19 Performed By: #### A DIFF, CBC, MDW, GFR, CMP, TROPHS, PBNP, ANEU #### [place] [id number] UAon 06-18-2023 Color (U) Yellow Normal [facility] ([place]) Comment on above: Performed By: #### B MP, GFR, TSH #### [place] [id number] Glucose (U) [Mass/Vol] Negative Normal Negative [facility] ([place]) Comment on above: Performed By: #### B MP, GFR, TSH #### [place] [id number] Ketones Ql (U) Negative Normal Neg-Trace [facility] ([place]) Comment on above: Performed By: #### B MP, GFR, TSH #### [address] [address] UA Appear Clear Normal Clear [facility] ([place]) Comment on above: Performed By: #### B MP, GFR, TSH #### [address] [address] UA Blood Negative Normal Neg-Trace [facility] ([place]) Comment on above: Performed By: #### B MP, GFR, TSH #### [place] [address] UA Leuk Est Negative Normal Negative [facility] ([place]) Comment on above: Performed By: #### B MP, GFR, TSH #### [address] [address] UA Nitrite Negative Normal Negative [facility] ([place]) Comment on above: Performed By: #### B MP, GFR, TSH #### [place] [address] UA pH 7.0 Normal 5.0 - 8.0 [facility] ([place]) Comment on above: Performed By: #### B MP, GFR, TSH #### [place] [address] UA Protein Negative Normal Negative [facility] ([place]) Comment on above: Performed By: #### B MP, GFR, TSH #### [place] [address] UA Spec Grav 1.020 Normal 1.006-1.029 [facility] ([place]) Comment on above: Performed By: #### B MP, GFR, TSH #### [place] [address] UA Specimen Type Clean Catch Normal [facility] ([place]) Comment on above: Performed By: #### B MP, GFR, TSH #### [address] [address] UA Urobilinogen 0.2 E.U./dL Normal 0.2-1.0 [facility] ([place]) Comment on above: Performed By: #### B MP, GFR, TSH #### [address] [address] Urobilinogen (U) [Mass/Vol] Negative Normal Neg-Trace [facility] ([place]) Comment on above: Performed By: #### B MP, GFR, TSH #### [address] [address] XR CHEST 1 VIEWon 06-18-2023 XR CHEST [...] 06/18/2023 8:22:34 AM Ordering Provider: JACKSON Hassan [facility] ([place]) .Auto Diffon 05-23-2023 Basophil, Absolute 0.0 10 3/mcL Normal 0.0-0.3 [facility] ([place]) Comment on above: Performed By: #### A DIFF, CBC, MDW, GFR, CMP, TROPHS, PBNP, ANEU #### [address] [address] Basophils/100 WBC (Bld) 0.4 % Normal 0.0-2.5 A [facility] ([place]) Comment on above: Performed By: #### A DIFF, CBC, MDW, GFR, CMP, TROPHS, PBNP, ANEU #### [address] [address] Eosinophil, Absolute 0.2 10 3/mcL Normal 0.0-0.7 [facility] ([place]) Comment on above: Performed By: #### A DIFF, CBC, MDW, GFR, CMP, TROPHS, PBNP, ANEU #### [address] [address] Eosinophils/100 WBC (Bld) 4.2 % Normal 0.0-6.0 [facility] ([place]) Comment on above: Performed By: #### A DIFF, CBC, MDW, GFR, CMP, TROPHS, PBNP, ANEU #### [address] [address] Lymphocyte, Absolute 1.5 10 3/mcL Normal 0.9-4.3 [facility] ([place]) Comment on above: Performed By: #### A DIFF, CBC, MDW, GFR, CMP, TROPHS, PBNP, ANEU #### [address] [address] Lymphocytes/100 WBC (Bld) 29.8 % Normal 20.0-40.0 [facility] ([place]) Comment on above: Performed By: #### A DIFF, CBC, MDW, GFR, CMP, TROPHS, PBNP, ANEU #### [address] [address] Monocyte, Absolute 0.7 10 3/mcL Normal 0.1-1.4 [facility] ([place]) Comment on above: Performed By: #### A DIFF, CBC, MDW, GFR, CMP, TROPHS, PBNP, ANEU #### [address] [address] Monocytes/100 WBC (Bld) 14.2 % High 2.0-13.0 [facility] ([place]) Comment on above: Performed By: #### A DIFF, CBC, MDW, GFR, CMP, TROPHS, PBNP, ANEU #### [address] [address] Neutrophils/100 WBC (Bld) 51.4 % Normal 50.0-75.0 [facility] ([place]) Comment on above: Performed By: #### A DIFF, CBC, MDW, GFR, CMP, TROPHS, PBNP, ANEU #### [address] [address] .NEUABSon 05-23-2023 Neutrophil, Absolute 2.6 10 3/mcL Normal 2.3-8.1 [facility] ([place]) Comment on above: Performed By: #### A DIFF, CBC, MDW, GFR, CMP, TROPHS, PBNP, ANEU #### [place] [id number] CBCon 05-23-2023 Erythrocyte distribution width (RBC) [Ratio] 14.0 % Normal 11.5-15.5 [facility] ([place]) Comment on above: Performed By: #### A DIFF, CBC, MDW, GFR, CMP, TROPHS, PBNP, ANEU #### [place] [address] Hematocrit (Bld) [Volume fraction] 42.1 % Normal 34.0-46.0 [facility] ([place]) Comment on above: Performed By: #### A DIFF, CBC, MDW, GFR, CMP, TROPHS, PBNP, ANEU #### [place] [address] Hgb 14.2 G/dL Normal 12.0-16.0 [facility] ([place]) Comment on above: Performed By: #### A DIFF, CBC, MDW, GFR, CMP, TROPHS, PBNP, ANEU #### [place] [address] MCH (RBC) [Entitic mass] 30.5 pg Normal 27.0-33.0 [facility] ([place]) Comment on above: Performed By: #### A DIFF, CBC, MDW, GFR, CMP, TROPHS, PBNP, ANEU #### [place] [address] MCHC 33.7 G/dL Normal 32.0-36.0 [facility] ([place]) Comment on above: Performed By: #### A DIFF, CBC, MDW, GFR, CMP, TROPHS, PBNP, ANEU #### [place] [address] MCV (RBC) [Entitic vol] 90.6 fL Normal 80.0-99.0 A [facility] ([place]) Comment on above: Performed By: #### A DIFF, CBC, MDW, GFR, CMP, TROPHS, PBNP, ANEU #### [place] [address] Platelet 105 10 3/mcL Low 150-450 [facility] ([place]) Comment on above: Performed By: #### A DIFF, CBC, MDW, GFR, CMP, TROPHS, PBNP, ANEU #### [place] [address] Platelet mean volume (Bld) [Entitic vol] 8.1 fL Normal 6.6-10.5 [facility] ([place]) Comment on above: Performed By: #### A DIFF, CBC, MDW, GFR, CMP, TROPHS, PBNP, ANEU #### [place] [address] RBC 4.64 10 6/mcL Normal 4.10-5.30 [facility] ([place]) Comment on above: Performed By: #### A DIFF, CBC, MDW, GFR, CMP, TROPHS, PBNP, ANEU #### [place] [address] WBC 5.0 10 3/mcL Normal 4.5-10.8 [facility] ([place]) Comment on above: Performed By: #### A DIFF, CBC, MDW, GFR, CMP, TROPHS, PBNP, ANEU #### [place] [address] PBNPon 05-23-2023 Natriuretic peptide B (Bld) [Mass/Vol] 106 pg/mL Normal 0-1800 [facility] ([place]) Comment on above: Result Comment: NT-p roBNP results of less than 300 pg/mL effectively rules out acute congestive heart failure with 99% negative predictive value. Performed By: #### A DIFF, CBC, MDW, GFR, CMP, TROPHS, PBNP, ANEU #### [place] [address] FT4on 02-04-2023 Free T4 [Mass/Vol] 0.91 ng/dL Normal 0.89-1.76 [facility] ([place]) Comment on above: Result Comment: No te - New Reference Range in effect 19 Performed By: #### B MP, GFR, TSH #### [address] [address] .Auto Diffon 02-03-2023 Basophil, Absolute 0.0 10 3/mcL Normal 0.0-0.3 [facility] ([place]) Comment on above: Performed By: #### B MP, GFR, TSH #### [address] [address] Basophils/100 WBC (Bld) 0.2 % Normal 0.0-2.5 A [facility] ([place] Comment on above: Performed By: #### B MP, GFR, TSH #### [address] [address] Eosinophil, Absolute 0.1 10 3/mcL Normal 0.0-0.7 [facility] ([place] Comment on above: Performed By: #### B MP, GFR, TSH #### [address] [address] Eosinophils/100 WBC (Bld) 2.4 % Normal 0.0-6.0 [facility] ([place]) Comment on above: Performed By: #### B MP, GFR, TSH #### [address] [address] Lymphocyte, Absolute 1.3 10 3/mcL Normal 0.9-4.3 [facility] ([place] Comment on above: Performed By: #### B MP, GFR, TSH #### [address] [address] Lymphocytes/100 WBC (Bld) 22.5 % Normal 20.0-40.0 [facility] ([place] Comment on above: Performed By: #### B MP, GFR, TSH #### [address] [address] Monocyte, Absolute 0.8 10 3/mcL Normal 0.1-1.4 [facility] ([place] Comment on above: Performed By: #### B MP, GFR, TSH #### [address] [address] Monocytes/100 WBC (Bld) 13.3 % High 2.0-13.0 A [facility] ([place] Comment on above: Performed By: #### B MP, GFR, TSH #### [address] [address] Neutrophils/100 WBC (Bld) 61.6 % Normal 50.0-75.0 [facility] ([place]) Comment on above: Performed By: #### B MP, GFR, TSH #### [address] [address] .GFRon 02-03-2023 GFR >60 Normal [facility] ([place] Comment on above: Result Comment: GFR Population [...] MDW, GFR, CMP, TROPHS, PBNP, ANEU #### [address] [address] GFR Non- 56 ml/min/1.73sqm Normal [facility] ([place] Comment on above: Result Comment: GFR Population [...] MDW, GFR, CMP, TROPHS, PBNP, ANEU #### [address] [address] .NEUABSon 02-03-2023 Neutrophil, Absolute 3.6 10 3/mcL Normal 2.3-8.1 [facility] ([place] Comment on above: Performed By: #### B MP, GFR, TSH #### [address] [address] BMPon 02-03-2023 BUN/Creatinine Ratio 29.5 ratio High 10.0-22.0 [facility] ([place] Comment on above: Performed By: #### B MP, GFR, TSH #### [address] [address] Calcium [Mass/Vol] 10.3 mg/dL Normal 8.7-10.4 [facility] ([place] Comment on above: Performed By: #### B MP, GFR, TSH #### [address] [address] Chloride [Moles/Vol] 102 mmol/L Normal 98-110 [facility] ([place] Comment on above: Performed By: #### B MP, GFR, TSH #### [address] [address] CO2 [Moles/Vol] 35 mmol/L High 22-32 [facility] ([place] Comment on above: Performed By: #### B MP, GFR, TSH #### [address] [address] Creatinine [Mass/Vol] 0.95 mg/dL Normal 0.50-1.20 [facility] ([place] Comment on above: Performed By: #### B MP, GFR, TSH #### [address] [address] Electrolyte Balance 1.0 mEq/L Low 4.0-15.0 [facility] ([place] Comment on above: Performed By: #### B MP, GFR, TSH #### [place] [id number] Glucose [Mass/Vol] 103 mg/dL Normal 82-115 [facility] ([place]) Comment on above: Performed By: #### B MP, GFR, TSH #### [place] [id number] Potassium [Moles/Vol] 4.0 mmol/L Normal 3.5-5.0 [facility] ([place]) Comment on above: Result Comment: Spec imen slightly hemolyzed. Performed By: #### B MP, GFR, TSH #### [place] [id number] Sodium [Moles/Vol] 138 mmol/L Normal 136-145 [facility] ([place]) Comment on above: Performed By: #### B MP, GFR, TSH #### [place] [id number] Urea nitrogen [Mass/Vol] 28.0 mg/dL High 8.0-22.0 [facility] ([place]) Comment on above: Performed By: #### B MP, GFR, TSH #### [place] [id number] CBCon 02-03-2023 Erythrocyte distribution width (RBC) [Ratio] 14.1 % Normal 11.5-15.5 [facility] ([place]) Comment on above: Performed By: #### B MP, GFR, TSH #### [place] [id number] Hematocrit (Bld) [Volume fraction] 42.9 % Normal 34.0-46.0 [facility] ([place]) Comment on above: Performed By: #### B MP, GFR, TSH #### [place] [id number] Hgb 14.1 G/dL Normal 12.0-16.0 [facility] ([place]) Comment on above: Performed By: #### B MP, GFR, TSH #### [address] [address] MCH (RBC) [Entitic mass] 31.0 pg Normal 27.0-33.0 [facility] ([place]) Comment on above: Performed By: #### B MP, GFR, TSH #### [place] [address] MCHC 32.9 G/dL Normal 32.0-36.0 [facility] ([place]) Comment on above: Performed By: #### B MP, GFR, TSH #### [place] [address] MCV (RBC) [Entitic vol] 94.2 fL Normal 80.0-99.0 A [facility] ([place]) Comment on above: Performed By: #### B MP, GFR, TSH #### [place] [address] Platelet 111 10 3/mcL Low 150-450 [facility] ([place]) Comment on above: Performed By: #### B MP, GFR, TSH #### [place] [address] Platelet mean volume (Bld) [Entitic vol] 8.8 fL Normal 6.6-10.5 [facility] ([place]) Comment on above: Performed By: #### B MP, GFR, TSH #### [place] [address] RBC 4.56 10 6/mcL Normal 4.10-5.30 [facility] ([place]) Comment on above: Performed By: #### B MP, GFR, TSH #### [place] [address] WBC 5.8 10 3/mcL Normal 4.5-10.8 [facility] ([place]) Comment on above: Performed By: #### B MP, GFR, TSH #### [place] [address] TSHon 02-03-2023 TSH 7.106 mIU/mL High 0.550-4.780 [facility] ([place]) Comment on above: Result Comment: No te - New Reference Range in effect 19 Performed By: #### B MP, GFR, TSH #### [facility] [address] [place] [address] BLOOD BANK COMMENTon 023 BLOOD BANK COMMENT See Comment Normal [facility] Comment on above: Order Comment: Speci men Type: BLOOD SPECIMENOrdering Facility: [facility] Address: [address] [place] [address] Result Comment: SEAN eli, notified Wilmer at 1740 on 12/31/22. Performed By: #### L [id number], TSCR ####[facility] BLOOD BANKCLIA [id number] [place] [id number] [place] CBC panel Auto (Bld)on 12-31 Erythrocyte distribution width (RBC) [Ratio] 13.8 % Normal 11.5-15.0 [facility] Comment on above: Order Comment: Speci men Type: BLOOD SPECIMENOrdering Facility: [facility] Address: [address] [place] [address] Performed By: #### 5 8410-2 ####[facility] LABORATORYCLIA [id number] [address] [place] Hematocrit (Bld) [Volume fraction] 39.5 % Normal 36.0-46.0 [facility] Comment on above: Order Comment: Speci men Type: BLOOD SPECIMENOrdering Facility: [facility] Address: [address] [place] [address] Performed By: #### 5 8410-2 ####[facility] LABORATORYCLIA [id number] [place] [id number] [place] Hemoglobin (Bld) [Mass/Vol] 13.1 g/dL Normal 11.5-15.5 [facility] Comment on above: Order Comment: Speci men Type: BLOOD SPECIMENOrdering Facility: [facility] Address: [address] [place] [address] Performed By: #### 5 8410-2 ####[facility] LABORATORYCLIA [id number] [place] [id number] [place] MCH (RBC) [Entitic mass] 30.8 pg Normal 26.0-34.0 [facility] Comment on above: Order Comment: Speci men Type: BLOOD SPECIMENOrdering Facility: [facility] Address: [address] [place] [address] Performed By: #### 5 8410-2 ####[facility] LABORATORYCLIA [id number] [address] [place] MCHC (RBC) [Mass/Vol] 33.2 g/dL Normal 30.5-36.0 [facility] Comment on above: Order Comment: Speci men Type: BLOOD SPECIMENOrdering Facility: [facility] Address: [address] [place] [address] Performed By: #### 5 8410-2 ####[facility] LABORATORYCLIA [id number] [place] [address] [place] MCV (RBC) [Entitic vol] 92.9 fL Normal 80.0-100.[address] [facility] Comment on above: Order Comment: Speci men Type: BLOOD SPECIMENOrdering Facility: [facility] Address: [address] [place] [address] Performed By: #### 5 8410-2 ####[facility] LABORATORYCLIA [id number] [place] [address] [place] Nucleated RBC (Bld) [#/Vol] 10*3/uL Normal <0.01 [facility] Comment on above: Order Comment: Speci men Type: BLOOD SPECIMENOrdering Facility: [facility] Address: [address] [place] [address] Performed By: #### 5 8410-2 ####[facility] LABORATORYCLIA [id number] [address] [place] Platelet mean volume (Bld) [Entitic vol] 9.4 fL Normal 9.0-12.7 [facility] Comment on above: Order Comment: Speci men Type: BLOOD SPECIMENOrdering Facility: [facility] Address: [address] [place] [address] Performed By: #### 5 8410-2 ####[facility] LABORATORYCLIA [id number] [address] Platelets (Bld) [#/Vol] 97 10*3/uL Low 150-[address] [facility] Comment on above: Order Comment: Speci men Type: BLOOD SPECIMENOrdering Facility: [facility] Address: [address] [place] [address] Result Comment: No c lot detected. Performed By: #### 5 8410-2 ####[facility] LABORATORYCLIA [id number] [address] RBC (Bld) [#/Vol] 4.25 10*6/uL Normal 3.90-5.20 [facility] Comment on above: Order Comment: Speci men Type: BLOOD SPECIMENOrdering Facility: [facility] Address: [address] [place] [address] Performed By: #### 5 8410-2 ####[facility] LABORATORYCLIA [id number] [address] WBC (Bld) [#/Vol] 5.97 10*3/uL Normal 3.70-11.00 [facility] Comment on above: Order Comment: Speci men Type: BLOOD SPECIMENOrdering Facility: [facility] Address: [address] [place] [address] Performed By: #### 5 8410-2 ####[facility] LABORATORYCLIA [id number] [address] Comprehensive metabolic 2000 panelon 12-31-2022 Albumin [Mass/Vol] 3.7 g/dL Normal 3.2-5.0 [facility] Comment on above: Order Comment: Speci men Type: BLOOD SPECIMENOrdering Facility: [facility] Address: [address] [place] [address] Performed By: #### 2 4323-8 ####[facility] LABORATORYCLIA [id number] [address] ALP [Catalytic activity/Vol] 81 U/L Normal 45-117 [facility] Comment on above: Order Comment: Speci men Type: BLOOD SPECIMENOrdering Facility: [facility] Address: [address] [place] [address] Performed By: #### 2 4323-8 ####[facility] LABORATORYCLIA [id number] [address] [place] ALT [Catalytic activity/Vol] 16 U/L Normal 13-61 [facility] Comment on above: Order Comment: Speci men Type: BLOOD SPECIMENOrdering Facility: [facility] Address: [address] [place] [address] Result Comment: Resu lts may be falsely depressed after the administration of Sulfasalazine and/or Sulfapyridine. Performed By: #### 2 4323-8 ####[facility] LABORATORYCLIA [id number] [address] [place] Anion gap [Moles/Vol] 3 mmol/L Low 5-16 [facility] Comment on above: Order Comment: Speci men Type: BLOOD SPECIMENOrdering Facility: [facility] Address: [address] [place] [address] Performed By: #### 2 4323-8 ####[facility] LABORATORYCLIA [id number] [address] [place] AST [Catalytic activity/Vol] 18 U/L Normal 8-34 [facility] Comment on above: Order Comment: Speci men Type: BLOOD SPECIMENOrdering Facility: [facility] Address: [address] [place] [address] Result Comment: Resu lts may be falsely depressed after the administration of Sulfasalazine and/or Sulfapyridine. Performed By: #### 2 4323-8 ####[facility] LABORATORYCLIA [id number] [place] [address] [place] Bilirubin [Mass/Vol] 0.8 mg/dL Normal 0.2-1.0 [facility] Comment on above: Order Comment: Speci men Type: BLOOD SPECIMENOrdering Facility: [facility] Address: [address] [place] [address] Performed By: #### 2 4323-8 ####[facility] LABORATORYCLIA [id number] [place] [id number] [place] Calcium [Mass/Vol] 9.8 mg/dL Normal 8.5-10.5 [facility] Comment on above: Order Comment: Speci men Type: BLOOD SPECIMENOrdering Facility: [facility] Address: [address] [place] [address] Performed By: #### 2 4323-8 ####[facility] LABORATORYCLIA [id number] [place] [id number] [place] Chloride [Moles/Vol] 102 mmol/L Normal 98-107 [facility] Comment on above: Order Comment: Speci men Type: BLOOD SPECIMENOrdering Facility: [facility] Address: [address] [place] [address] Performed By: #### 2 4323-8 ####[facility] LABORATORYCLIA [id number] [place] [id number] [place] CO2 [Moles/Vol] 36 mmol/L High 21-32 [facility] Comment on above: Order Comment: Speci men Type: BLOOD SPECIMENOrdering Facility: [facility] Address: [address] [place] [address] Performed By: #### 2 4323-8 ####[facility] LABORATORYCLIA [id number] [place] [id number] [place] Creatinine [Mass/Vol] 0.82 mg/dL Normal 0.51-0.95 [facility] Comment on above: Order Comment: Speci men Type: BLOOD SPECIMENOrdering Facility: [facility] Address: [address] [place] [address] Result Comment: Linn ents receiving either N-Acetylcysteine (NAC) or Metamizole prior to venipuncture, may have falsely depressed results. Performed By: #### 2 4323-8 ####[facility] LABORATORYCLIA [id number] [place] [address] [place] Creatinine and Glomerular filtration rate.predicted panel (S/P/Bld) 71 mL/min/1.73m??? Normal >=60 [facility] Comment on above: Order Comment: Brady smith Type: BLOOD SPECIMENOrdering Facility: [facility] Address: [address] [place] [address] Result Comment: Esme mated Glomerular Filtration Rate [...] actual GFR. Performed By: #### 2 4323-8 ####[facility] LABORATORYCLIA [id number] [place] [address] [place] Glucose [Mass/Vol] 88 mg/dL Normal 70-100 [facility] Comment on above: Order Comment: Brady smith Type: BLOOD SPECIMENOrdering Facility: [facility] Address: [address] [place] [address] Result Comment: The [place] [employer] (ADA) provides guidance for cutoff [...] Standards of Medical Care in Diabetes 2016, [place] [employer]. Diabetes Care. 2016.39(Suppl 1).Results may be falsely elevated after the administration of Sulfapyridine.Results may be falsely depressed after the administration of Sulfasalazine. Performed By: #### 2 4323-8 ####[facility] LABORATORYCLIA [id number] [place] [id number] [place] Potassium [Moles/Vol] 3.9 mmol/L Normal 3.5-5.1 [facility] Comment on above: Order Comment: Brady smith Type: BLOOD SPECIMENOrdering Facility: [facility] Address: [address] [place] [address] Performed By: #### 2 4323-8 ####[facility] LABORATORYCLIA [id number] [place] [id number] [place] Protein [Mass/Vol] 6.7 g/dL Normal 6.0-8.5 [facility] Comment on above: Order Comment: Speci men Type: BLOOD SPECIMENOrdering Facility: [facility] Address: [address] [place] [address] Performed By: #### 2 4323-8 ####[facility] LABORATORYCLIA [id number] [place] [id number] [place] Sodium [Moles/Vol] 141 mmol/L Normal 136-145 [facility] Comment on above: Order Comment: Speci men Type: BLOOD SPECIMENOrdering Facility: [facility] Address: [place] [address] Performed By: #### 2 4323-8 ####[facility] LABORATORYCLIA [id number] [place] [id number] [place] Urea nitrogen [Mass/Vol] 19 mg/dL Normal 7-26 [facility] Comment on above: Order Comment: Speci men Type: BLOOD SPECIMENOrdering Facility: [facility] Address: [place] [address] Performed By: #### 2 4323-8 ####[facility] LABORATORYCLIA [id number] [place] [address] [place] ECG COMPLETEon 12-31-2022 ECG COMPLETE Normal [facility] ED NOTEon 12-31-2022 ED NOTE HNO ID: [id number] Author: Danelle Goff RN Service: ? Author Type: Registered Nurse Type: ED Notes Filed: 12/31/2022 7:43 PM Note Text: Ambulated in hallway with pulse ox on room air. Pulse ox remains between 88-90%, heart rate 84. Normal [facility] ED NOTE HNO ID: [id number] Author: Venkat Pfeiffer RN Service: ? Author Type: Registered Nurse Type: ED Notes Filed: 12/31/2022 3:42 PM Note Text: Bed: 27-ED Expected date: Expected time: Means of arrival: Comments: triage Normal [facility] ED NOTE Normal [facility] ED PROV NOTEon 12-31-2022 ED PROV NOTE Normal [facility] Hemoccult Stl Qlon 3 Hemoglobin.gastrointesti nal Ql (Stl) Negative Normal [facility] Comment on above: Performed By: #### 2 335-8 ####[facility] LABORATORYCLIA [id number] [place] [id number] [place] PT panel Coag (PPP)on 2022 INR Coag (PPP) [Relative time] 1.1 {INR} Normal 0.9-1.3 [facility] Comment on above: Order Comment: Speci men Type: BLOOD SPECIMENOrdering Facility: [facility] Address: [address] [place] [address] Result Comment: Serena min K Antagonist (VKA) Therapeutic Range: INR 2 to 3 (Target INR of 2.5)Note: For patients treated with VKA drugs, such as warfarin, the [place] [employer] 2012 Guideline recommends [...] of 3).Josue GH, et al. Chest 2012, 141:7S-47SNishimura RA, et al. JACC 2017, 70: 252-289 Performed By: #### 3 4528-0, 45405-1 ####[facility] LABORATORYCLIA [id number] [place] [id number] [place] PT Coag (PPP) [Time] 11.4 s Normal 9.7-13.0 [facility] Comment on above: Order Comment: Speci men Type: BLOOD SPECIMENOrdering Facility: [facility] Address: [address] [place] [address] Performed By: #### 3 4528-0, 80747-8 ####[facility] LABORATORYCLIA [id number] [address] OF [facility] TYPE + SCREENon 12-31-2022 ABO O [facility] Comment on above: Order Comment: Speci men Type: BLOOD SPECIMENOrdering Facility: [facility] Address: [address] [place] [address] Performed By: #### L [id number], TSCR ####[facility] BLOOD BANKCLIA [id number] [address] OF [facility] HISTORICAL AB SCR STATUS Negative [facility] Comment on above: Order Comment: Speci men Type: BLOOD SPECIMENOrdering Facility: [facility] Address: [address] [place] [address] Performed By: #### L [id number], TSCR ####[facility] BLOOD BANKCLIA [id number] [place] [address] [place] Rh Nom (Bld) Negative [facility] Comment on above: Order Comment: Speci men Type: BLOOD SPECIMENOrdering Facility: [facility] Address: [address] [place] [address] Performed By: #### L [id number], TSCR ####[facility] BLOOD BANKCLIA [id number] [place] [address] [place] TYPE AND SCREEN EXPIRATION 01/03/2023 23:59 Normal [facility] Comment on above: Order Comment: Speci men Type: BLOOD SPECIMENOrdering Facility: [facility] Address: [address] [place] [address] Performed By: #### L [id number], TSCR ####[facility] BLOOD BANKCLIA [id number] [place] [address] [place] Urinalysis complete panel (U )on 12-31-2022 Bacteria LM.HPF (Urine sed) [#/Area] Rare Abnormal None Seen [facility] Comment on above: Order Comment: Speci men Type: URINE SPECIMENOrdering Facility: [facility] Address: [address] [place] [address] Performed By: #### 2 4356-8 ####[facility] LABORATORYCLIA [id number] [place] [address] [place] Bilirubin Ql (U) Negative Normal Negative [facility] Comment on above: Order Comment: Speci men Type: URINE SPECIMENOrdering Facility: [facility] Address: [address] [place] [address] Performed By: #### 2 4356-8 ####[facility] LABORATORYCLIA [id number] [address] [place] Clarity (Unsp spec) Clear Normal Clear [facility] Comment on above: Order Comment: Speci men Type: URINE SPECIMENOrdering Facility: [facility] Address: [address] [place] [address] Performed By: #### 2 4356-8 ####[facility] LABORATORYCLIA [id number] [address] Color (U) Straw Normal Yellow [facility] Comment on above: Order Comment: Speci men Type: URINE SPECIMENOrdering Facility: [facility] Address: [address] [place] [address] Performed By: #### 2 4356-8 ####[facility] LABORATORYCLIA [id number] [address] [place] Epithelial cells LM.HPF (Urine sed) [#/Area] Few Normal [facility] Comment on above: Order Comment: Speci men Type: URINE SPECIMENOrdering Facility: [facility] Address: [address] [place] [address] Performed By: #### 2 4356-8 ####[facility] LABORATORYCLIA [id number] [address] [place] Glucose Test strip (U) [Mass/Vol] Negative Normal Negative [facility] Comment on above: Order Comment: Speci men Type: URINE SPECIMENOrdering Facility: [facility] Address: [address] [place] [address] Performed By: #### 2 4356-8 ####[facility] LABORATORYCLIA [id number] [address] [place] Hemoglobin Ql (U) Negative Normal Negative [facility] Comment on above: Order Comment: Speci men Type: URINE SPECIMENOrdering Facility: [facility] Address: [address] [place] [address] Performed By: #### 2 4356-8 ####[facility] LABORATORYCLIA [id number] [address] STATES OF [facility] Ketones Ql (U) Negative Normal Negative [facility] Comment on above: Order Comment: Speci men Type: URINE SPECIMENOrdering Facility: [facility] Address: [address] [place] [address] Performed By: #### 2 4356-8 ####[facility] LABORATORYCLIA [id number] [address] [place] Leukocyte esterase Test strip Ql (U) Negative Normal Negative [facility] Comment on above: Order Comment: Speci men Type: URINE SPECIMENOrdering Facility: [facility] Address: [address] [place] [address] Performed By: #### 2 4356-8 ####[facility] LABORATORYCLIA [id number] [address] [place] Nitrite Ql (U) Negative Normal Negative [facility] Comment on above: Order Comment: Speci men Type: URINE SPECIMENOrdering Facility: [facility] Address: [address] [place] [address] Performed By: #### 2 4356-8 ####[facility] LABORATORYCLIA [id number] [address] [place] pH (U) 8.0 [pH] Normal 5.0-8.0 [facility] Comment on above: Order Comment: Speci men Type: URINE SPECIMENOrdering Facility: [facility] Address: [address] [place] [address] Performed By: #### 2 4356-8 ####[facility] LABORATORYCLIA [id number] [address] [facility] Protein (U) [Mass/Vol] Negative Normal Negative [facility] Comment on above: Order Comment: Speci men Type: URINE SPECIMENOrdering Facility: [facility] Address: [address] [place] [address] Performed By: #### 2 4356-8 ####[facility] LABORATORYCLIA [id number] [address] [place] RBC LM.HPF (Urine sed) [#/Area] 0-3 /HPF Normal 0-3 /HPF [facility] Comment on above: Order Comment: Speci men Type: URINE SPECIMENOrdering Facility: [facility] Address: [address] [place] [address] Performed By: #### 2 4356-8 ####[facility] LABORATORYCLIA [id number] [address] [place] Specific gravity (U) [Rel density] 1.012 Normal 1.005-1.030 [facility] Comment on above: Order Comment: Speci men Type: URINE SPECIMENOrdering Facility: [facility] Address: [address] [place] [address] Performed By: #### 2 4356-8 ####[facility] LABORATORYCLIA [id number] [address] Urobilinogen Ql (U) Negative Normal Negative [facility] Comment on above: Order Comment: Speci men Type: URINE SPECIMENOrdering Facility: [facility] Address: [address] [place] [address] Performed By: #### 2 4356-8 ####[facility] LABORATORYCLIA [id number] [place] [address] [place] WBC LM.HPF (Urine sed) [#/Area] 0-5 /HPF Normal 0-5 /HPF [facility] Comment on above: Order Comment: Speci men Type: URINE SPECIMENOrdering Facility: [facility] Address: [place] [address] Performed By: #### 2 4356-8 ####[facility] LABORATORYCLIA [id number] [place] [id number] [facility] XR CHEST 1V FRONTAL PORTon 1 XR CHEST 1V FRONTAL PORT Normal [facility] aPTT PPPon 12-31-2022 aPTT Coag (PPP) [Time] 28.6 s Normal 23.0-32.4 [facility] Comment on above: Order Comment: Speci men Type: BLOOD SPECIMENOrdering Facility: [facility] Address: [place] [address] Performed By: #### 3 4528-0, 05593-4 ####[facility] LABORATORYCLIA [id number] [address] LABORATORYOrdered By: SYSTEM SYSTEM on 02-16-2022 Basophils [...] Invalid Interpretation Code 0.0 - 0.7 10^3/mcL AH Workflow SS Eosinophils/100 WBC (Bld) 0.1 % Invalid Interpretation Code 0.0 - 6.0 % AH Workflow SS Erythrocyte distribution width (RBC) [Ratio] 15.1 % Invalid Interpretation Code 11.5 - 15.5 % AH Workflow SS GFR/1.73 sq M.predicted among blacks MDRD (S/P/Bld) [Vol rate/Area] ml/min/1.73sqm Invalid Interpretation Code Chemistry S GFR/1.73 sq M.predicted among non-blacks MDRD (S/P/Bld) [Vol rate/Area] ml/min/1.73sqm Invalid Interpretation Code Chemistry S Glucose [Mass/Vol] 69 mg/dL Invalid Interpretation Code 82 - 115 mg/dL ADM SS Hematocrit (Bld) [Volume fraction] 40.7 % Invalid Interpretation Code 34.0 - 46.0 % AH Workflow SS Hemoglobin (Bld) [Mass/Vol] 13.7 G/dL Invalid Interpretation Code 12.0 - 16.0 G/dL AH Workflow SS Lymphocytes (Bld) [#/Vol] 1.5 103/mcL Invalid Interpretation Code 0.9 - 4.3 10^3/mcL AH Workflow SS Lymphocytes/100 WBC (Bld) 21.6 % Invalid Interpretation Code 20.0 - 40.0 % AH Workflow SS Magnesium [Mass/Vol] 1.9 mg/dL Invalid Interpretation Code 1.6 - 2.4 mg/dL ADM SS MCH (RBC) [Entitic mass] 29.6 [...] 22.0 ratio ADM SS WBC (Bld) [#/Vol] 7.1 103/mcL Invalid Interpretation Code 4.5 - 10.8 10^3/mcL Workflow SS LABORATORYOrdered By: SYSTEM SYSTEM on 02-15-2022 Basophils (Bld) [#/Vol] 0.0 103/mcL Invalid Interpretation Code 0.0 - 0.3 10^3/mcL Workflow SS Basophils/100 WBC (Bld) 0.0 % Invalid Interpretation Code 0.0 - 2.5 % Workflow SS Calcium [Mass/Vol] 10.0 mg/dL Invalid [...] Invalid Interpretation Code 4.0 - 15.0 mEq/L AH ADM SS Eosinophils (Bld) [#/Vol] 0.0 103/mcL [...] Code 20.0 - 40.0 % Workflow SS MCH (RBC) [Entitic mass] 29.9 pg Invalid Interpretation Code 27.0 - 33.0 pg Workflow SS MCHC 33.7 G/dL Invalid Interpretation Code 32.0 - 36.0 G/dL Workflow SS MCV (RBC) [Entitic vol] 88.7 fL Invalid Interpretation Code 80.0 - 99.0 fL Workflow SS Monocytes (Bld) [#/Vol] 0.8 103/mcL Invalid Interpretation Code 0.1 - 1.4 10^3/mcL Workflow SS Monocytes/100 WBC (Bld) 9.1 % Invalid Interpretation Code 2.0 - 13.0 % Workflow SS Neutrophils (Bld) [#/Vol] 6.9 103/mcL Invalid Interpretation Code 2.3 - 8.1 10^3/mcL Workflow SS Neutrophils/100 WBC (Bld) 77.9 % Invalid Interpretation Code 50.0 - 75.0 % Workflow SS Platelet mean volume (Bld) [Entitic vol] 8.9 fL Invalid Interpretation Code 6.6 - 10.5 fL Workflow SS Platelets (Bld) [#/Vol] 105 103/mcL Invalid Interpretation Code 150 - 450 10^3/mcL Workflow SS Potassium [Moles/Vol] 4.4 mmol/L Invalid Interpretation Code 3.5 - 5.0 mEq/L ADM SS RBC (Bld) [#/Vol] 4.49 106/mcL Invalid Interpretation Code 4.10 - 5.30 10^6/mcL Workflow SS Sodium [Moles/Vol] 136 mmol/L Invalid Interpretation Code 136 - 145 mEq/L ADM SS Urea nitrogen [Mass/Vol] 21.0 mg/dL Invalid Interpretation Code 8.0 - 22.0 mg/dL ADM SS Urea nitrogen/Creatinine [Mass ratio] 29.6 ratio Invalid Interpretation Code 10.0 - 22.0 ratio ADM SS WBC (Bld) [#/Vol] 8.9 103/mcL [...] Invalid Interpretation Code 34.0 - 46.0 % AH Workflow SS Hemoglobin (Bld) [Mass/Vol] 13.8 G/dL Invalid Interpretation Code 12.0 - 16.0 G/dL AH Workflow SS Lymphocytes (Bld) [#/Vol] 1.0 103/mcL [...] Invalid Interpretation Code 80.0 - 99.0 fL Workflow SS Monocytes (Bld) [#/Vol] 0.3 103/mcL Invalid Interpretation Code 0.1 - 1.4 10^3/mcL Workflow SS Monocytes/100 WBC (Bld) 3.3 % [...] Invalid Interpretation Code 3.5 - 5.0 mEq/L AH ADM SS Comment on above: Result Comment: Spec imen slightly hemolyzed. RBC (Bld) [#/Vol] 4.63 106/mcL Invalid Interpretation Code 4.10 - 5.30 10^6/mcL AH Workflow SS Sodium [Moles/Vol] 137 mmol/L Invalid Interpretation Code 136 - 145 mEq/L AH ADM SS Urea nitrogen [Mass/Vol] 23.0 mg/dL Invalid Interpretation Code 8.0 - 22.0 mg/dL AH ADM SS Urea nitrogen/Creatinine [Mass ratio] 33.8 ratio Invalid Interpretation Code 10.0 - 22.0 ratio AH ADM SS WBC (Bld) [#/Vol] 10.1 103/mcL Invalid Interpretation Code 4.5 - 10.8 10^3/mcL AH Workflow SS LABORATORYOrdered By: SYSTEM SYSTEM on 02-13-2022 Troponin I.cardiac DL <= 0.01 ng/mL [Mass/Vol] 6.30 ng/L Invalid Interpretation Code 0.00 - 34.00 ng/L AH ADM SS Albumin BCP dye [Mass/Vol] 3.4 G/dL Invalid Interpretation Code 3.2 - 4.8 G/dL AH ADM SS Albumin/Globulin [Mass ratio] 0.9 {ratio} Invalid Interpretation Code 0.9 - 1.6 ratio AH ADM SS ALP [Catalytic activity/Vol] 98 U/L Invalid Interpretation Code 38 - 126 U/L AH ADM SS ALT No additional P-5'-P [Catalytic activity/Vol] 22 U/L Invalid Interpretation Code 10 - 49 U/L AH ADM SS AST [Catalytic activity/Vol] 32 U/L Invalid Interpretation Code 8 - 34 U/L AH ADM SS Bilirubin [Mass/Vol] 0.60 mg/dL Invalid Interpretation Code 0.20 - 1.20 mg/dL AH ADM SS Globulin 3.6 G/dL Invalid Interpretation Code 1.5 - 3.8 G/dL AH ADM SS Protein [Mass/Vol] 7.0 G/dL Invalid Interpretation Code 5.7 - 8.2 G/dL AH ADM SS Troponin I.cardiac DL <= 0.01 ng/mL [Mass/Vol] 5.50 ng/L Invalid Interpretation Code 0.00 - 34.00 ng/L AH ADM SS CK [Catalytic activity/Vol] 103 U/L Invalid Interpretation Code 7 - 185 U/L AH ADM SS Magnesium [Mass/Vol] 1.4 mg/dL Invalid Interpretation Code 1.6 - 2.4 mg/dL ADM SS Phosphate [Mass/Vol] 1.7 mg/dL Invalid Interpretation Code 2.4 - 5.1 mg/dL ADM SS Troponin I.cardiac DL <= 0.01 ng/mL [Mass/Vol] 5.43 ng/L Invalid Interpretation Code 0.00 - 34.00 ng/L ADM SS LABORATORYOrdered By: Emma Alaniz on 02-13-2022 CK.MB [Mass/Vol] 2.01 ng/mL Invalid Interpretation Code 0.00 - 5.00 ng/mL ADM Free T4 index Calc [Mass/Vol] Not Valid Invalid Interpretation Code 0.0 - 4.5 Chemistry S Comment on above: Result Comment: CPK <185 invalidates relative index LABORATORYOrdered By: Jerica Umanzor on 02-13-2022 M. pneumoniae IgM IA Ql (S) Negative (02/13/22 1:31 AM) Invalid Interpretation Code Man Viro/Sero SS Mycoplasma IgG Positive *NA* (02/13/22 1:31 AM) Invalid Interpretation Code Auto Viro/Sero SS No Panel Informationon 02-13 Legionella Urine Ag Presumptive negative for L. pneumophila serogroup 1 antigen in urine, suggesting no recent or current infection. Legionnaire's disease cannot be ruled out since other serogroups and species may also cause disease. [facility] Work Phone: Streptococcus Pneumoniae Urine Antig Streptococcus pneumoniae antigen Positive for pneumococcal pneumonia. [facility] Work Phone: Comment on above: This test [...] Telcor Subsection Comment on above: Result Comment: Richard bob [address] [place], [place] [address] Perf Loc - POCT Tested at AM Invalid Interpretation Code AM Telcor Subsection Comment on above: Result Comment: [place] paulino [address] [place], [place] [address] Perf Loc - POCT Tested at AM Invalid Interpretation Code AM Telcor Subsection Comment on above: Result Comment: Richard Holloway [address] [place], [place] [address] LABORATORYOrdered By: Toi Blackburn on 02-12-2022 Performing Instrument - POCT [...] RNA LYDIA+probe Ql (Unsp spec) Done Charted [facility] DISCH.SUMon 08-29-2020 DISCH.[facility] Patient Name: KRISH PERALTA [address] Date of : [address] [place] [address] Unit Number: [id number] Discharge Summary Patient Status: ADM Liang Attending Doctor: Yessy Alatorre DO Service Date: 08/29/20 1520 Discharge Summary Admit Date Admission Date Time: [...] of shortness of breath. Please refer to HandP for full details. In ER, patient vitals [...] Ox 96 08/29 0815 B/P 120/80 08/29 0654 Temp 97.5 08/29 06 Pulse 84 08/29 0654 Resp 20 08/29 [...] or rash noticed. Labs/Imaging Lab 72hr (CBC/BMP [facility]) 08/28/202223: SARS-CoV-2 (PCR) NEGATIVE 08/28/201941: Troponin I [...] (Myrbetriq) 25 MG TAB.ER.24H 25 MILLIGRAM ORAL [place]-3 Fatty Acids/Fish Oil* (Fish Oil 1,000 MG Softgel*) 1 EACH CAPSULE 1 CAPSULE ORAL EVERY DAY Flaxseed Oil (Flax Oil) 1,000 MG CAPSULE 1,000 MILLIGRAM ORAL Cholecalciferol (Vitamin D3)* (Vitamin D3 1000 Unit tab*) 25 MCG TABLET 1,000 UNIT ORAL EVERY DAY [place]-3 Fatty Acids/Fish Oil* (Fish Oil 1,000 MG [...] Aspirin EC* (Ecotrin 325MG Tab*) 325 MG TABLET. 325 MILLIGRAM ORAL EVERY DAY Acetaminophen* (Tylenol 500MG Tab*) 500 MG T (more content not included)... [facility] Michelle 08-29-2020 EMERGENCY PHYSICIAN REPORT This is a preliminary report only, as the practitioner review and authentication has not occurred. 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 She is noted that there is been no high fevers chills or sweats and she had her Covid shots months ago. [facility] PATIENT NAME: KRISH PERALTA Koki Segal MEDICAL REC #: [id number] [place] [address] EMERGENCY DEPARTMENT REPORT EMERGENCY DEPARTMENT PHYSICIAN She [...] Lids Normal; . Oropharynx / Throat: Normal [facility] PATIENT NAME: KRISH PERALTA Koki Segal MEDICAL REC #: [id number] [place] [address] EMERGENCY DEPARTMENT REPORT EMERGENCY DEPARTMENT PHYSICIAN Pharynx. [...] -----andlt; 93 Anion Gap = 4 3.6 alert_gap="3" BUN/CREA: 23; CALCIUM TOTAL: 10.4 Mg/Dl CBC [...] 65 bpm. Rate NormalRhythm Sinus RhythmAxis Left [place] DeviationIntervals NormalQRS NormalST/T Normal Interpretation: Sinus rhythm Comparison: No old Cardiogram available for comparison Imaging Study Obtained: CHES (more content not included)... Normal [facility] HP.[facility].ADMon 08-29-2020 Admission-H&P Normal [facility] HP.IMS.ADM [facility] Patient Name: KRISH PERALTA [address] Date of : [address] [place], [place] [address] Unit Number: [id number] Admission-HandP Patient Status: ADM Liang Attending Doctor: Yessy Alatorre DO Service Date: 08/28/20 2333 History of Present Illness Chief Complaint/Present Illness: [...] normal, Skin warm, dry Additional Laboratory Tests 08/284 1942 1942 Chemistry Sodium (136 - 145 MMOL/L) 139 [...] has end (more content not included)... Normal [facility] [id number] 08-29-2020 SARS-CoV-2 (COVID-19) RNA LYDIA+probe Ql (Unsp spec) Negative Invalid Interpretation Code Negative [facility] Comment on above: Order Comment: Chandni s: M Result Comment: RESU LTS CALLED TO Linda JIMENEZ AT 2341 08/28/20 BY EMILY REDDING Negative results do not preclude SARS-CoV-2 infection and should not be used as the sole basis for treatment or other patient management decisions. Negative results must be combined with clinical observation, patient history, and epidemiological information. This test was performed by PCR. Performed By: #### L [id number] #### [facility] LABORATORY [address] [place] [address]# [phone] [facility] 08-28-2020 Anion gap [Moles/Vol] 4 mmol/L Low 5-16 [facility] Comment on above: Order Comment: Campu s: M Performed By: #### L 500.44899, L500.89825 #### [facility] LABORATORY [facility] [place] [address] Calcium [Mass/Vol] 10.4 mg/dL Normal 8.5-10.5 [facility] Comment on above: Order Comment: Campu s: M Result Comment: NOTE NEW NORMAL RANGE DUE TO REAGENT CHANGE Performed By: #### L 500.29829, L500.50683 #### [facility] LABORATORY [address] [place] [address] Chloride [Moles/Vol] 103 mmol/L Normal 98-107 [facility] Comment on above: Order Comment: Campu s: M Performed By: #### L 500.09838, L500.61811 #### [facility] LABORATORY [address] [place] [address] CO2 [Moles/Vol] 32.0 mmol/L Normal 21-32 [facility] Comment on above: Order Comment: Campu s: M Performed By: #### L 500.93057, L500.55979 #### [facility] LABORATORY [address] [place] [address] Creatinine [Mass/Vol] 0.75 mg/dL Normal 0.510-0.950 [facility] Comment on above: Order Comment: Campu s: M Result Comment: Linn ents receiving either N-Acetylcysteine (NAC) or Metamizole prior to venipuncture, may have falsely depressed results. Performed By: #### L 500.52933, L500.13859 #### [facility] LABORATORY [address] [place] [address] Glucose [Mass/Vol] 93 mg/dL Normal 70-100 [facility] Comment on above: Order Comment: Campu s: M Result Comment: 70-1 00- Normal Fasting; 100-125 Impaired Fasting; greater than 126 on more than one result- Diabetes. ADA guidelines. Results may be falsely elevated after the administration of Sulfapyridine. Results may be falsely depressed after the administration of Sulfasalazine. Performed By: #### L 500.84640, L500.20113 #### [facility] LABORATORY [address] [place] [address] Potassium [Moles/Vol] 3.6 mmol/L Normal 3.5-5.1 [facility] Comment on above: Order Comment: Campu s: M Performed By: #### L 500.57701, L500.09569 #### [facility]ORATORY [address] [place] [address] Sodium [Moles/Vol] 139 mmol/L Normal 136-145 [facility] Comment on above: Order Comment: Campu s: M Performed By: #### L 500.04502, L500.57171 #### [facility]ORATORY [address] [place] [address] Urea nitrogen [Mass/Vol] 17 mg/dL Normal 7-26 [facility] Comment on above: Order Comment: Campu s: M Performed By: #### L 500.18794, L500.09838 #### [facility] LABOR[facility] [address] [place] [address] Urea nitrogen/Creatinine [Mass ratio] 23 mg/mg Normal 15-24 [facility] Comment on above: Order Comment: Campu s: M Performed By: #### L 500.02112, L500.60648 #### [facility] LABOR[facility] [address] [place] [address] CBC W/DIFFon 08-28-2020 BASO ABS 0.00 K/CU MM Normal 0-0.2 [facility] Comment on above: Order Comment: Campu s: M Performed By: #### L 200.55907 #### [facility] LABORATORY [address] [place] [address] Basophils/100 WBC (Bld) 0.1 % Normal 0-2 M [facility] Comment on above: Order Comment: Campu s: M Performed By: #### L 200.90200 #### [facility] LABORATORY [address] [place] [address] EOS ABS 0.20 K/CU MM Normal 0-0.5 [facility] Comment on above: Order Comment: Campu s: M Performed By: #### L 200.87972 #### [facility]OR[facility] [address] [place] [address] Eosinophils/100 WBC (Bld) 3.0 % Normal 0-5 [facility] Comment on above: Order Comment: Campu s: M Performed By: #### L 200.53642 #### [facility] [address] [place] [address] Erythrocyte distribution width (RBC) [Ratio] 14.0 % Normal 11-14.5 [facility] Comment on above: Order Comment: Campu s: M Performed By: #### L 200.11374 #### [facility] [address] [place] [address] Hematocrit (Bld) [Volume fraction] 42.2 % Normal 35.0-47.0 [facility] Comment on above: Order Comment: Campu s: M Performed By: #### L 200.48862 #### [facility] [address] [place] [address] Hemoglobin (Bld) [Mass/Vol] 14.3 g/dL Normal 11.5-15.5 [facility] Comment on above: Order Comment: Campu s: M Performed By: #### L 200.72227 #### [facility] [address] [place] [address] IMMATR GRAN ABS 0.00 K/CU MM Normal Less than 2 [facility] Comment on above: Order Comment: Campu s: M Performed By: #### L 200.71464 #### [facility] [address] [place] [address] IMMATURE GRAN % 0.4 % Normal Less than 2 [facility] Comment on above: Order Comment: Campu s: M Performed By: #### L 200.10090 #### [facility] [address] [place] [address] LYMPH ABS 2.20 K/CU MM Normal 0.9-4.4 [facility] Comment on above: Order Comment: Campu s: M Performed By: #### L 200.04685 #### [facility] [address] [place] [address] Lymphocytes/100 WBC (Bld) 32.1 % Normal 20-40 [facility] Comment on above: Order Comment: Campu s: M Performed By: #### L 200.32551 #### [facility] [address] [place] [address] MCHC (RBC) [Mass/Vol] 33.9 g/dL Normal 32.0-36.0 [facility] Comment on above: Order Comment: Campu s: M Performed By: #### L 200.02976 #### [facility] [address] [place] [address] MCV (RBC) [Entitic vol] 90.2 fL Normal 80.0-99.0 [facility] Comment on above: Order Comment: Campu s: M Performed By: #### L 200.16691 #### [facility] [address] [place] [address] MONO ABS 0.60 K/CU MM Normal 0.1-1.1 [facility] Comment on above: Order Comment: Campu s: M Performed By: #### L [id number] #### [facility] [address] [place] [address] Monocytes/100 WBC (Bld) 9.2 % Normal 2-10 M [facility] Comment on above: Order Comment: Campu s: M Performed By: #### L 200.82847 #### [facility] [address] [place] [address] NEUTROPHIL ABS 3.80 K/CU MM Normal 2.0-8.3 [facility] Comment on above: Order Comment: Campu s: M Performed By: #### L 200.15524 #### [facility] [address] [place] [address] Neutrophils/100 WBC (Bld) 55.2 % Normal 45-75 [facility] Comment on above: Order Comment: Campu s: M Performed By: #### L 200.10807 #### [facility] [address] [place] [address] Nucleated RBC/100 WBC (Bld) [Ratio] 0.0 % Normal Less than 1 [facility] Comment on above: Order Comment: Campu s: M Performed By: #### L 200.68479 #### [facility] [address] [place] [address] Platelet mean volume (Bld) [Entitic vol] 9.8 fL Normal 9.4-12.4 [facility] Comment on above: Order Comment: Campu s: M Performed By: #### L 200.04287 #### [facility] [address] [place] [address] PLT 112 K/CU MM Low 150-450 [facility] Comment on above: Order Comment: Campu s: M Result Comment: Conf irmed by slide estimate. Performed By: #### L 200.51312 #### [facility] [address] [place] [address] PLT EST SLT DECREASED Normal [facility] Comment on above: Order Comment: Campu s: M Performed By: #### L 200.45460 #### [facility] [address] [place] [address] RBC 4.68 M/CU MM Normal 3.90-5.30 [facility] Comment on above: Order Comment: Campu s: M Performed By: #### L [id number] #### [facility] [place] [address] WBC 6.9 K/CUMM Normal 4.5-11.0 [facility] Comment on above: Order Comment: Campu s: M Performed By: #### L 200.80992 #### [facility] [address] [place] [address] CHEST PA/AP AND LATERALon CHEST PA/AP AND LATERAL EXAMINATION: [facility] RADIOGRAPH (2 VIEW FRONTAL & LATERAL) [...] MD Signed By: LEONOR MCKEON MD Normal [facility] EKGon 08-28-2020 Electrocardiogram Procedure Date and Time: [...] By:Radha COBIAN M.D.FACC Clare DDandT: 08/28/201931 TDandT: [facility] PATIENT NAME: KRISH PERALTA [facility] Segal MEDICAL REC #: [id number] [place] [address] ADMIT DATE: DISCHARGE DATE: ATTENDING PHY: Rowan Adrian,Emergency Physi ELECTROCARDIOGRAM REPORT CLB cc: [facility] PATIENT NAME: KRISH PERALTA [facility] Dr[facility] Segal MEDICAL REC #: [id number] [place] [id number] ADMIT DATE: DISCHARGE DATE: ATTENDING PHY: Rowan Adrian,Emergency Physi ELECTROCARDIOGRAM REPORT Normal [facility] GFR ESTon 08-28-2020 IF AMER Greater than 60 Normal [facility] Comment on above: Order Comment: Chandni s: M Performed By: #### L 500.24409, L500.51227 #### [facility] [address] [place] [address] IF non-AFR AMER Greater than 60 Normal [facility] Comment on above: Order Comment: Chandni s: M Performed By: #### L 500.16060, L500.88508 #### [facility] [address] [place] [address] TROPONIN Ion 08-28-2020 TROPONIN I 3.1 pg/mL Normal 0-34 [facility] Comment on above: Order Comment: Chandni s: M Result Comment: NOTE NEW NORMAL RANGE DUE TO REAGENT CHANGE This assay uses different antibodies than our current assay, and assays, even by the same photo optics technician may recognize different regions of the antibody and cannot be used interchangeably. Expect results of this assay to run higher than the previous assay. Performed By: #### L 550.58720 #### [facility] [address]# [phone] Vital Signs Date Time Vital Sign Value Performing Clinician Facility 09-01-2024 09:19-0400 Body height 152.4 cm Paulette Ram [employer] ACCOUNTING MANAGER Work Phone: [facility] 09-01-2024 09:19-0400 Body temperature 97.7 [degF] Paulette Ram [employer] ACCOUNTING MANAGER Work Phone: [facility] 09-01-2024 09:19-0400 Diastolic blood pressure 62 mm[Hg] Paulette Ram [employer] ACCOUNTING MANAGER Work Phone: [facility] 09-01-2024 09:19-0400 Heart rate 67 /min Paulette Ram [employer] ACCOUNTING MANAGER Work Phone: [facility] 09-01-2024 09:19-0400 SaO2% (BldA) [Mass fraction] 90 % Paulette Ram [employer] ACCOUNTING MANAGER Work Phone: [facility] 09-01-2024 09:19-0400 Systolic blood pressure 98 mm[Hg] Paulette Ram [employer] ACCOUNTING MANAGER Work Phone: [facility] 08-11-2024 12:27-0400 Body temperature 97.81 [degF] Mejgon Ann DO Work Phone: [facility] 08-11-2024 12:27-0400 Diastolic blood pressure 73 mm[Hg] Mejgon Ann DO Work Phone: [facility] 08-11-2024 12:27-0400 Heart rate 85 /min Mejgon Ann DO Work Phone: [facility] 08-11-2024 12:27-0400 Respiratory rate 16 /min Mejgon Ann DO Work Phone: [facility] 08-11-2024 12:27-0400 SaO2% (BldA) [Mass fraction] 92 % Mejgon Ann DO Work Phone: [facility] [employer] 08-11-2024 12:27-0400 Systolic blood pressure 117 mm[Hg] Stacia Juarez DO Work Phone: [facility] [employer] 08-06-2024 15:21-0400 Body height 152.4 cm Stacia Juarez DO Work Phone: [facility] [employer] 08-06-2024 15:21-0400 Body mass index (BMI) [Ratio] 42.97 kg/m2 Stacia Juarez DO Work Phone: [facility] [employer] 08-06-2024 15:21-0400 Body weight 99.79 kg Stacia Juarez DO Work Phone: [facility] [employer] 11-11-2023 11:15-0400 Body mass index (BMI) [Ratio] 38.47 kg/m2 Kalli De Anda APRN.CNP Work Phone: [facility] 11-11-2023 11:15-0400 Body temperature 97.81 [degF] Kalli De Anda APRN.TECHNICIAN PREVENTATIVE MEDICINE Work Phone: [facility] [facility] 11[facility]11-2023 11:15-0400 Body weight 89.36 kg Kalli De Anda APRN.TECHNICIAN PREVENTATIVE MEDICINE Work Phone: [facility] Comment on above: 11/03/2023 11-11-2023 11:15-0400 Diastolic blood pressure 72 mm[Hg] Kalli De Anda APRN.TECHNICIAN PREVENTATIVE MEDICINE Work Phone: [facility] 11-11-2023 11:15-0400 Heart rate 68 /min Kalli De Anda APRN.TECHNICIAN PREVENTATIVE MEDICINE Work Phone: [facility] 11-11-2023 11:15-0400 Respiratory rate 18 /min Kalli De Anda APRN.TECHNICIAN PREVENTATIVE MEDICINE Work Phone: [facility] 11-11-2023 11:15-0400 SaO2% (BldA) [Mass fraction] 96 % Kalli De Anda APRN.TECHNICIAN PREVENTATIVE MEDICINE Work Phone: [facility] 11-11-2023 11:15-0400 Systolic blood pressure 126 mm[Hg] Kalli De Anda APRN.TECHNICIAN PREVENTATIVE MEDICINE Work Phone: [facility] 11-05-2023 14:23-0400 Body temperature 97.59 [degF] Kalli De Anda APRN.TECHNICIAN PREVENTATIVE MEDICINE Work Phone: [facility] 11-05-2023 14:23-0400 Diastolic blood pressure 67 mm[Hg] Kalli De Anda APRN.TECHNICIAN PREVENTATIVE MEDICINE Work Phone: [facility] 11-05-2023 14:23-0400 Heart rate 79 /min Kalli De Anda APRN.TECHNICIAN PREVENTATIVE MEDICINE Work Phone: [facility] 11-05-2023 14:23-0400 Respiratory rate 18 /min Kalli De Anda APRN.TECHNICIAN PREVENTATIVE MEDICINE Work Phone: [facility] 11-05-2023 14:23-0400 SaO2% (BldA) [Mass fraction] 95 % Kalli De Anda APRN.TECHNICIAN PREVENTATIVE MEDICINE Work Phone: [facility] 11-05-2023 14:23-0400 Systolic blood pressure 114 mm[Hg] Kalli De Anda APRN.TECHNICIAN PREVENTATIVE MEDICINE Work Phone: [facility] 11-03-2023 16:14-0400 Body mass index (BMI) [Ratio] 38.47 kg/m2 Kalli De Anda APRN.TECHNICIAN PREVENTATIVE MEDICINE Work Phone: [facility] 11-03-2023 16:14-0400 Body temperature 96.21 [degF] Kalli De Anda APRN.TECHNICIAN PREVENTATIVE MEDICINE Work Phone: [facility] 11-03-2023 16:14-0400 Body weight 89.36 kg Kalli De Anda APRN.TECHNICIAN PREVENTATIVE MEDICINE Work Phone: [facility] 11-03-2023 16:14-0400 Diastolic blood pressure 60 mm[Hg] Kalli De Anda APRN.TECHNICIAN PREVENTATIVE MEDICINE Work Phone: [facility] 11-03-2023 16:14-0400 Heart rate 73 /min Kalli De Anda APRN.TECHNICIAN PREVENTATIVE MEDICINE Work Phone: [facility] 11-03-2023 16:14-0400 Respiratory rate 18 /min Kalli Elizaldebert OBGYN HOSPITALIST PHYSICIAN.TECHNICIAN PREVENTATIVE MEDICINE Work Phone: [facility] 11-03-2023 16:14-0400 SaO2% (BldA) [Mass fraction] 93 % Kalli Elizaldebert OBGYN HOSPITALIST PHYSICIAN.TECHNICIAN PREVENTATIVE MEDICINE Work Phone: [facility] 11-03-2023 16:14-0400 Systolic blood pressure 110 mm[Hg] Kalli Helbert OBGYN HOSPITALIST PHYSICIAN.TECHNICIAN PREVENTATIVE MEDICINE Work Phone: [facility] 10-29-2023 15:29-0400 Body temperature 97.39 [degF] Kalli Helbert OBGYN HOSPITALIST PHYSICIAN.TECHNICIAN PREVENTATIVE MEDICINE Work Phone: [facility] 10-29-2023 15:29-0400 Diastolic blood pressure 64 mm[Hg] Kalli Helbert OBGYN HOSPITALIST PHYSICIAN.TECHNICIAN PREVENTATIVE MEDICINE Work Phone: [facility] 10-29-2023 15:29-0400 Heart rate 75 /min Kalli Elizaldebert OBGYN HOSPITALIST PHYSICIAN.TECHNICIAN PREVENTATIVE MEDICINE Work Phone: [facility] 10-29-2023 15:29-0400 Respiratory rate 20 /min Kalli Helbert OBGYN HOSPITALIST PHYSICIAN.TECHNICIAN PREVENTATIVE MEDICINE Work Phone: [facility] 10-29-2023 15:29-0400 SaO2% (BldA) [Mass fraction] 95 % Kalli De Anda OBGYN HOSPITALIST PHYSICIAN.TECHNICIAN PREVENTATIVE MEDICINE Work Phone: [facility] 10-29-2023 15:29-0400 Systolic blood pressure 111 mm[Hg] Kalli Helbert OBGYN HOSPITALIST PHYSICIAN.TECHNICIAN PREVENTATIVE MEDICINE Work Phone: [facility] 10-27-2023 12:09-0400 Body mass index (BMI) [Ratio] 37.5 kg/m2 Kalli De Anda OBGYN HOSPITALIST PHYSICIAN.TECHNICIAN PREVENTATIVE MEDICINE Work Phone: [facility] 10-27-2023 12:09-0400 Body temperature 97.3 [degF] Kalli De Anda OBGYN HOSPITALIST PHYSICIAN.TECHNICIAN PREVENTATIVE MEDICINE Work Phone: [facility] 10-27-2023 12:09-0400 Body weight 87.09 kg Kalli Hellandry KEMPN.TECHNICIAN PREVENTATIVE MEDICINE Work Phone: [facility] 10-27-2023 12:09-0400 Diastolic blood pressure 69 mm[Hg] Kalli Fidebert OBGYN HOSPITALIST PHYSICIAN.TECHNICIAN PREVENTATIVE MEDICINE Work Phone: [facility] 10-27-2023 12:09-0400 Heart rate 79 /min Kalli Elizaldebert OBGYN HOSPITALIST PHYSICIAN.TECHNICIAN PREVENTATIVE MEDICINE Work Phone: [facility] 10-27-2023 12:09-0400 Respiratory rate 16 /min Kalli Elizaldebert OBGYN HOSPITALIST PHYSICIAN.TECHNICIAN PREVENTATIVE MEDICINE Work Phone: [facility] 10-27-2023 12:09-0400 SaO2% (BldA) [Mass fraction] 95 % Kalli De Anda OBGYN HOSPITALIST PHYSICIAN.TECHNICIAN PREVENTATIVE MEDICINE Work Phone: [facility] 10-27-2023 12:09-0400 Systolic blood pressure 126 mm[Hg] Kalli Elizaldebert OBGYN HOSPITALIST PHYSICIAN.TECHNICIAN PREVENTATIVE MEDICINE Work Phone: [facility] 10-16-2023 14:10-0400 Body temperature 97.59 [degF] Kalli Hellandry OBGYN HOSPITALIST PHYSICIAN.TECHNICIAN PREVENTATIVE MEDICINE Work Phone: [facility] 10-16-2023 14:10-0400 Diastolic blood pressure 59 mm[Hg] Kalli Helbert OBGYN HOSPITALIST PHYSICIAN.TECHNICIAN PREVENTATIVE MEDICINE Work Phone: [facility] 10-16-2023 14:10-0400 Heart rate 73 /min Kalli Elizaldebert OBGYN HOSPITALIST PHYSICIAN.TECHNICIAN PREVENTATIVE MEDICINE Work Phone: [facility] 10-16-2023 14:10-0400 Respiratory rate 18 /min Kalli Elizaldebert OBGYN HOSPITALIST PHYSICIAN.TECHNICIAN PREVENTATIVE MEDICINE Work Phone: [facility] 10-16-2023 14:10-0400 SaO2% (BldA) [Mass fraction] 92 % Kalli Elizaldebert OBGYN HOSPITALIST PHYSICIAN.TECHNICIAN PREVENTATIVE MEDICINE Work Phone: [facility] 10-16-2023 14:10-0400 Systolic blood pressure 123 mm[Hg] Kalli Helbert OBGYN HOSPITALIST PHYSICIAN.TECHNICIAN PREVENTATIVE MEDICINE Work Phone: [facility] 10-14-2023 11:15-0400 Body mass index (BMI) [Ratio] 38.28 kg/m2 Kalli De Anda APRN.TECHNICIAN PREVENTATIVE MEDICINE Work Phone: [facility] 10-14-2023 11:15-0400 Body temperature 97.59 [degF] Kalli De Anda APRN.TECHNICIAN PREVENTATIVE MEDICINE Work Phone: [facility] 10-14-2023 11:15-0400 Body weight 88.91 kg Kalli De Anda APRN.TECHNICIAN PREVENTATIVE MEDICINE Work Phone: [facility] 10-14-2023 11:15-0400 Diastolic blood pressure 70 mm[Hg] Kalli De Anda APRN.TECHNICIAN PREVENTATIVE MEDICINE Work Phone: [facility] 10-14-2023 11:15-0400 Heart rate 72 /min Kalli De Anda APRN.TECHNICIAN PREVENTATIVE MEDICINE Work Phone: [facility] 10-14-2023 11:15-0400 Respiratory rate 18 /min Kalli De Anda APRN.TECHNICIAN PREVENTATIVE MEDICINE Work Phone: [facility] 10-14-2023 11:15-0400 SaO2% (BldA) [Mass fraction] 95 % Kalli De Anda APRN.TECHNICIAN PREVENTATIVE MEDICINE Work Phone: [facility] 10-14-2023 11:15-0400 Systolic blood pressure 120 mm[Hg] Kalli De Anda APRN.TECHNICIAN PREVENTATIVE MEDICINE Work Phone: [facility] 10-09-2023 15:00-0400 Body temperature 97.5 [degF] Kalli De Anda APRN.TECHNICIAN PREVENTATIVE MEDICINE Work Phone: [facility] 10-09-2023 15:00-0400 Diastolic blood pressure 68 mm[Hg] Kalli De Anda APRN.TECHNICIAN PREVENTATIVE MEDICINE Work Phone: [facility] 10-09-2023 15:00-0400 Heart rate 84 /min Kalli De Anda APRN.TECHNICIAN PREVENTATIVE MEDICINE Work Phone: [facility] 10-09-2023 15:00-0400 Respiratory rate 18 /min Kalli Helbert OBGYN HOSPITALIST PHYSICIAN.TECHNICIAN PREVENTATIVE MEDICINE Work Phone: [facility] 10-09-2023 15:00-0400 SaO2% (BldA) [Mass fraction] 93 % Kalli Helbert OBGYN HOSPITALIST PHYSICIAN.TECHNICIAN PREVENTATIVE MEDICINE Work Phone: [facility] 10-09-2023 15:00-0400 Systolic blood pressure 105 mm[Hg] Kalli Helbert OBGYN HOSPITALIST PHYSICIAN.TECHNICIAN PREVENTATIVE MEDICINE Work Phone: [facility] 10-07-2023 11:48-0400 Body temperature 97.81 [degF] Kalli Helbert OBGYN HOSPITALIST PHYSICIAN.TECHNICIAN PREVENTATIVE MEDICINE Work Phone: [facility] 10-07-2023 11:48-0400 Diastolic blood pressure 79 mm[Hg] Kalli Helbert OBGYN HOSPITALIST PHYSICIAN.TECHNICIAN PREVENTATIVE MEDICINE Work Phone: [facility] 10-07-2023 11:48-0400 Heart rate 90 /min Kalli Helbert OBGYN HOSPITALIST PHYSICIAN.TECHNICIAN PREVENTATIVE MEDICINE Work Phone: [facility] 10-07-2023 11:48-0400 Respiratory rate 18 /min Kalli Helbert OBGYN HOSPITALIST PHYSICIAN.TECHNICIAN PREVENTATIVE MEDICINE Work Phone: [facility] 10-07-2023 11:48-0400 SaO2% (BldA) [Mass fraction] 93 % Kalli Helbert OBGYN HOSPITALIST PHYSICIAN.TECHNICIAN PREVENTATIVE MEDICINE Work Phone: [facility] 10-07-2023 11:48-0400 Systolic blood pressure 133 mm[Hg] Kalli Helbert OBGYN HOSPITALIST PHYSICIAN.TECHNICIAN PREVENTATIVE MEDICINE Work Phone: [facility] 10-02-2023 11:02-0400 Body temperature 97.59 [degF] Kalli Helbert OBGYN HOSPITALIST PHYSICIAN.TECHNICIAN PREVENTATIVE MEDICINE Work Phone: [facility] 10-02-2023 11:02-0400 Diastolic blood pressure 97 mm[Hg] Kalli Helbert OBGYN HOSPITALIST PHYSICIAN.TECHNICIAN PREVENTATIVE MEDICINE Work Phone: [facility] 10-02-2023 11:02-0400 Heart rate 68 /min Kalli Helbert OBGYN HOSPITALIST PHYSICIAN.TECHNICIAN PREVENTATIVE MEDICINE Work Phone: [facility] 10-02-2023 11:02-0400 Respiratory rate 18 /min Kalli Helbert OBGYN HOSPITALIST PHYSICIAN.TECHNICIAN PREVENTATIVE MEDICINE Work Phone: [facility] 10-02-2023 11:02-0400 SaO2% (BldA) [Mass fraction] 94 % Kalli Helbert OBGYN HOSPITALIST PHYSICIAN.TECHNICIAN PREVENTATIVE MEDICINE Work Phone: [facility] 10-02-2023 11:02-0400 Systolic blood pressure 118 mm[Hg] Kalli Helbert OBGYN HOSPITALIST PHYSICIAN.TECHNICIAN PREVENTATIVE MEDICINE Work Phone: [facility] 09-30-2023 11:25-0400 Body temperature 97.5 [degF] Kalli Helbert OBGYN HOSPITALIST PHYSICIAN.TECHNICIAN PREVENTATIVE MEDICINE Work Phone: [facility] 09-30-2023 11:25-0400 Diastolic blood pressure 62 mm[Hg] Kalli Helbert OBGYN HOSPITALIST PHYSICIAN.TECHNICIAN PREVENTATIVE MEDICINE Work Phone: [facility] 09-30-2023 11:25-0400 Heart rate 64 /min Kalli Helbert OBGYN HOSPITALIST PHYSICIAN.TECHNICIAN PREVENTATIVE MEDICINE Work Phone: [facility] 09-30-2023 11:25-0400 Respiratory rate 18 /min Kalli Helbert OBGYN HOSPITALIST PHYSICIAN.TECHNICIAN PREVENTATIVE MEDICINE Work Phone: [facility] 09-30-2023 11:25-0400 SaO2% (BldA) [Mass fraction] 95 % Kalli Helbert OBGYN HOSPITALIST PHYSICIAN.TECHNICIAN PREVENTATIVE MEDICINE Work Phone: [facility] 09-30-2023 11:25-0400 Systolic blood pressure 123 mm[Hg] Kalli Helbert OBGYN HOSPITALIST PHYSICIAN.TECHNICIAN PREVENTATIVE MEDICINE Work Phone: [facility] 09-26-2023 23:10-0400 Body temperature 97.81 [degF] Kalli Helbert OBGYN HOSPITALIST PHYSICIAN.TECHNICIAN PREVENTATIVE MEDICINE Work Phone: [facility] 09-26-2023 23:10-0400 Diastolic blood pressure 52 mm[Hg] Kalli Helbert OBGYN HOSPITALIST PHYSICIAN.TECHNICIAN PREVENTATIVE MEDICINE Work Phone: [facility] 09-26-2023 23:10-0400 Heart rate 72 /min Kalli Helbert OBGYN HOSPITALIST PHYSICIAN.TECHNICIAN PREVENTATIVE MEDICINE Work Phone: [facility] 09-26-2023 23:10-0400 Respiratory rate 18 /min Kalli Helbert OBGYN HOSPITALIST PHYSICIAN.TECHNICIAN PREVENTATIVE MEDICINE Work Phone: [facility] 09-26-2023 23:10-0400 SaO2% (BldA) [Mass fraction] 92 % Kalli Helbert OBGYN HOSPITALIST PHYSICIAN.TECHNICIAN PREVENTATIVE MEDICINE Work Phone: [facility] 09-26-2023 23:10-0400 Systolic blood pressure 108 mm[Hg] Kalli Helbert OBGYN HOSPITALIST PHYSICIAN.TECHNICIAN PREVENTATIVE MEDICINE Work Phone: [facility] 09-23-2023 09:52-0400 Body temperature 97.7 [degF] Kalli Helbert OBGYN HOSPITALIST PHYSICIAN.TECHNICIAN PREVENTATIVE MEDICINE Work Phone: [facility] 09-23-2023 09:52-0400 Diastolic blood pressure 62 mm[Hg] Kalli Helbert OBGYN HOSPITALIST PHYSICIAN.TECHNICIAN PREVENTATIVE MEDICINE Work Phone: [facility] 09-23-2023 09:52-0400 Heart rate 86 /min Kalli Helbert OBGYN HOSPITALIST PHYSICIAN.TECHNICIAN PREVENTATIVE MEDICINE Work Phone: [facility] 09-23-2023 09:52-0400 Respiratory rate 18 /min Kalli Helbert OBGYN HOSPITALIST PHYSICIAN.TECHNICIAN PREVENTATIVE MEDICINE Work Phone: [facility] 09-23-2023 09:52-0400 SaO2% (BldA) [Mass fraction] 92 % Kalli Helbert OBGYN HOSPITALIST PHYSICIAN.TECHNICIAN PREVENTATIVE MEDICINE Work Phone: [facility] 09-23-2023 09:52-0400 Systolic blood pressure 121 mm[Hg] Kalli Helbert OBGYN HOSPITALIST PHYSICIAN.TECHNICIAN PREVENTATIVE MEDICINE Work Phone: [facility] 06-20-2023 14:45-0400 Body temperature 97.7 [degF] WAQAS GONZALEZ MD [facility] 06-20-2023 14:45-0400 Diastolic Blood Pressure Non-Invasive 64 mm[Hg] WAQAS GONZALEZ MD [facility] 06-20-2023 14:45-0400 Heart rate 86 /min WAQAS GONZALEZ MD [address] [place] [address] 06-20-2023 14:45-0400 Reason For Taking VItal Signs WAQAS GONZALEZ MD [address] [place] [address] 06-20-2023 14:45-0400 Respiratory rate 18 /min WAQAS GONZALEZ MD [address] [place] [address] 06-20-2023 14:45-0400 Systolic Blood Pressure Non-Invasive 119 mm[Hg] WAQAS GONZALEZ MD [address] 06-20-2023 12:45-0400 Body temperature 97.88 [degF] WAQAS GONZALEZ MD [address] [place] [address] 06-20-2023 12:45-0400 Diastolic Blood Pressure Non-Invasive 66 mm[Hg] WAQAS GONZALEZ MD [address] [place] [address] 06-20-2023 12:45-0400 Heart rate 72 /min WAQAS GONZALEZ MD [address] [place] [address] 06-20-2023 12:45-0400 Reason For Taking VItal Signs WAQAS GONZALEZ MD [address] [place] [address] 06-20-2023 12:45-0400 Respiratory rate 18 /min WAQAS GONZALEZ MD [address] [place] [address] 06-20-2023 12:45-0400 Systolic Blood Pressure Non-Invasive 120 mm[Hg] WAQAS GONZALEZ MD [address] [place] [address] 06-20-2023 11:06-0400 Body temperature 98.24 [degF] WAQAS GONZALEZ MD [address] [place] [address] 06-20-2023 11:06-0400 Diastolic Blood Pressure Non-Invasive 67 mm[Hg] WAQAS GONZALEZ MD [address] [place] [address] 06-20-2023 11:06-0400 Heart rate 73 /min WAQAS GONZALEZ MD [address] [place] [address] 06-20-2023 11:06-0400 Reason For Taking VItal Signs AWQAS GONZALEZ MD [facility] 06-20-2023 11:06-0400 Respiratory rate 18 /min WAQAS GONZALEZ MD [facility] 06-20-2023 11:06-0400 Systolic Blood Pressure Non-Invasive 124 mm[Hg] WAQAS GONZLAEZ MD [address] [place] [address] 06-20-2023 07:13-0400 Heart rate 76 /min WAQAS GONZALEZ MD [facility] 06-20-2023 06:27-0400 Blood Pressure Cuff Size WAQAS GONZALEZ MD [address] 06-20-2023 06:27-0400 Blood Pressure Location WAQAS GONZALEZ MD [address] 06-20-2023 06:27-0400 Blood Pressure Method WAQAS GONZALEZ MD [address] [place] [address] 06-20-2023 01:01-0400 Blood Pressure Cuff Size WAQAS GONZALEZ MD [address] [place] [address] 06-20-2023 01:01-0400 Blood Pressure Location WAQAS GONZALEZ MD [facility] 06-20-2023 01:01-0400 Blood Pressure Method WAQAS GONZALEZ MD [address] [place] [address] 06-20-2023 01:01-0400 Heart rate 64 /min WAQAS GONZALEZ MD [address] [place] [address] 06-19-2023 08:02-0400 Heart rate 77 /min WAQAS GONZALEZ MD [address] [place] [address] 06-18-2023 23:05-0400 Blood Pressure Cuff Size WAQAS GONZALEZ MD [facility] 06-18-2023 23:05-0400 Blood Pressure Location WAQAS GONZALEZ MD [address] [place] [address] 06-18-2023 23:05-0400 Blood Pressure Method WAQAS GONZALEZ MD [facility] 06-18-2023 20:42-0400 Body height 154 cm WAQAS GONZALEZ MD [facility] 06-18-2023 20:42-0400 Body weight 104.5 kg WAQAS GONZALEZ MD [facility] 06-18-2023 20:42-0400 Body weight 44.06 kg/m2 WAQAS GONZALEZ MD [facility] 06-18-2023 10:02-0400 SaO2% (BldA) [Mass fraction] 92.9 % WAQAS GONZALEZ MD [facility] 06-18-2023 06:17-0400 Body weight 104.5 kg WAQAS GONZALEZ MD [facility] 02-16-2022 14:53-0500 Body temperature 98.06 [degF] DR NASRA MENEZES MD [address] [place] [address] 02-16-2022 14:53-0500 Diastolic Blood Pressure Non-Invasive [address] NASRA MENEZES MD [address] [place] [address] 02-16-2022 14:53-0500 Heart rate 81 /min DR NASRA MENEZES MD [address] [place] [address] 02-16-2022 14:53-0500 Respiratory rate 17 /min DR NASRA MENEZES MD [address] [place] [address] 02-16-2022 14:53-0500 Systolic Blood Pressure Non-Invasive [address] NASRA MENEZES MD [address] [place] [address] 02-16-2022 14:38-0500 Heart rate 78 /min DR NASRA MENEZES MD [address] [place] [address] 02-16-2022 14:38-0500 Respiratory rate 17 /min DR NASRA MENEZES MD [facility] 02-16-2022 08:45-0500 Blood Pressure Cuff Size DR NASRA MENEZES MD [facility] 02-16-2022 08:45-[address] NASRA MENEZES MD [facility] 02-16-2022 08:45-[address] NASRA MENEZES MD [address] [place] [address] 02-16-2022 08:45-0500 Body temperature 97.52 [degF] DR NASRA MENEZES MD [address] [place] [address] 02-16-2022 08:45-0500 Diastolic Blood Pressure Non-Invasive [address] NASRA MENEZES MD [address] [place] [address] 02-16-2022 08:45-0500 Heart rate 67 /min DR NASRA MENEZES MD [address] [place] [address] 02-16-2022 08:45-0500 Reason For Taking VItal Signs DR NASRA MENEZES MD [address] [place] [address] 02-16-2022 08:45-0500 Respiratory rate 19 /min DR NASRA MENEZES MD [facility] 02-16-2022 08:45-0500 Systolic Blood Pressure Non-Invasive [address] NASRA MENEZES MD [address] [place] [address] 02-16-2022 07:34-0500 Heart rate 62 /min DR NASRA MENEZES MD [address] [place] [address] 02-15-2022 21:40-0500 Diastolic Blood Pressure Non-Invasive [address] NASRA MENEZES MD [address] [place] [address] 02-15-2022 21:40-0500 Heart rate 84 /min DR NASRA MENEZES MD [address] [place] [address] 02-15-2022 21:40-0500 Systolic Blood Pressure Non-Invasive [address] NASRA MENEZES MD [facility] 02-15-2022 21:28-0500 Body temperature 98.06 [degF] DR NASRA MENEZES MD [facility] 02-14-2022 22:02-0500 Heart rate 61 /min DR NASRA MENEZES MD [facility] 02-13-2022 15:35-0500 Reason For Taking VItal Signs DR NASRA MENEZES MD [address] [place] [address] 02-13-2022 07:49-0500 Reason For Taking VItal Signs DR NASRA MENEZES MD [facility] 02-12-2022 22:07-0500 Body height [address] NASRA MENEZES MD [facility] 02-12-2022 22:07-0500 Body weight 102.[address] NASRA MENEZES MD [address] [place] [address] 02-12-2022 22:07-0500 Body weight 42.58 kg/m2 DR NASRA MENEZES MD [facility] 02-12-2022 11:16-0500 Body temperature 98.24 [degF] DR NASRA MENEZES MD [facility] 02-12-2022 11:16-0500 Body weight 102.[address] NASRA MENEZES MD [facility] Encounters Encounter Date Encounter Type Care Provider Facility Start: 09-01-2024 End: 09-01-2024 Office outpatient visit 25 minutes Paulette Ram NP Work Phone: [facility] Comment on above: Hospital discharge f ollow-up (Primary Dx); Acute on chronic respiratory failure with hypoxemia (HCC); COPD exacerbation (HCC); Community acquired pneumonia of right lower lobe of lung; JOCELIN (obstructive sleep apnea); Smoking history Start: 09-01-2024 End: 09-01-20[facility] Start: 08-18-2024 ambulatory Kaleb Andersono OLS Facili ty:[facility] Start: 08-13-2024 End: 08-13-2024 Telephone encounter Arnoldo Bustillos RCP [facility] Resp Therapy Start: 08-03-2024 End: 08-11-2024 Evaluation and management of inpatient Stacia Juarez DO Work Phone: [facility] Cardiac Progressive Care Unit PCU 2E Comment on above: COPD exacerbation (H CC) (Primary Dx); Acute on chronic congestive heart failure, unspecified heart failure type (HCC); Acute hypoxic respiratory failure (HCC) Start: 04-17-2024 ambulatory Tacos Bender Camille conklinty:[facility] Start: 04-17-2024 End: 04-19-2024 Evaluation and management of inpatient Trip Hamilton Facility:[facility] Start: 03-11-2024 ambulatory Kaleb Andersono OLS Facili ty:[facility] Start: 02-09-2024 End: 02-09-2024 ambulatory Kaleb Andersono OLS Facility:[facility] Start: 02-02-2024 End: 02-02-2024 ambulatory Kaleb Andersono OLS Facility:[facility] Start: 01-12-2024 End: 01-12-2024 ambulatory Kaleb Andersono OLS Facility:[facility] Start: 01-02-2024 End: 01-02-2024 ambulatory Kaleb Andersono OLS Facility:[facility] Start: 12-29-2023 End: 12-29-2023 ambulatory Kaleb Andersono OLS Facility:[facility] Start: 11-17-2023 ambulatory Kaleb Andersono OLS Facili ty:[facility] Start: 11-11-2023 End: 11-11-2023 ambulatory Kalli De Anda APRN.CNP Work Phone: [facility] Comment on above: Acute pain of right shoulder (Primary Dx); Personal history of fall; Non-traumatic rhabdomyolysis; Hypertension, unspecified type; Chronic obstructive pulmonary disease, unspecified COPD type (HCC); Debility Start: 11-11-2023 End: 11-11-2023 Telemedicine consultation with patient Kalli De Anda APRN.TECHNICIAN PREVENTATIVE MEDICINE Work Phone: [facility] Start: 11-05-2023 End: 11-05-2023 ambulatory Kalli De Anda APRN.TECHNICIAN PREVENTATIVE MEDICINE Work Phone: [facility] Comment on above: Acute pain of right shoulder (Primary Dx); Personal history of fall; Non-traumatic rhabdomyolysis; Hypertension, unspecified type; Chronic obstructive pulmonary disease, unspecified COPD type (HCC); Debility; Dysuria Start: 11-05-2023 End: 11-05-2023 Telemedicine consultation with patient Kalli De Anda APRN.TECHNICIAN PREVENTATIVE MEDICINE Work Phone: [facility] Start: 11-03-2023 End: 11-03-2023 ambulatory Kalli De Anda APRN.TECHNICIAN PREVENTATIVE MEDICINE Work Phone: [facility] Comment on above: Acute pain of right shoulder (Primary Dx); Personal history of fall; Non-traumatic rhabdomyolysis; Hypertension, unspecified type; Chronic obstructive pulmonary disease, unspecified COPD type (HCC); Debility Start: 11-03-2023 End: 11-03-2023 Telemedicine consultation with patient Kalli De Anda APRN.TECHNICIAN PREVENTATIVE MEDICINE Work Phone: [facility] Start: 10-29-2023 End: 10-29-2023 ambulatory Kalli De Anda APRN.TECHNICIAN PREVENTATIVE MEDICINE Work Phone: [facility] Comment on above: Acute pain of right shoulder (Primary Dx); Personal history of fall; Non-traumatic rhabdomyolysis; Hypertension, unspecified type; Chronic obstructive pulmonary disease, unspecified COPD type (HCC); Debility; Dysuria Start: 10-29-2023 End: 10-29-2023 Telemedicine consultation with patient Kalli De Anda APRN.TECHNICIAN PREVENTATIVE MEDICINE Work Phone: [facility] Start: 10-27-2023 End: 10-27-2023 ambulatory Kalli De Anda APRN.TECHNICIAN PREVENTATIVE MEDICINE Work Phone: [facility] Comment on above: Non-traumatic rhabdo myolysis (Primary Dx); Acute pain of right shoulder; Personal history of fall; Hypertension, unspecified type; Chronic obstructive pulmonary disease, unspecified COPD type (HCC); Debility; Abnormal finding on urinalysis; Other specified hypothyroidism Start: 10-27-2023 End: 10-27-2023 Telemedicine consultation with patient Kalli De Anda APRN.TECHNICIAN PREVENTATIVE MEDICINE Work Phone: [facility] Start: 10-21-2023 End: 10-24-2023 Evaluation and management of inpatient EMILY MCCARTY Facility:[id number] Start: 10-16-2023 ambulatory Kalli vigil APRN.TECHNICIAN PREVENTATIVE MEDICINE Work Phone: [facility] Comment on above: Urinary tract infect ion with hematuria, site unspecified (Primary Dx); Haemophilus influenzae infection; Hypertension, unspecified type; Other specified hypothyroidism; Acute hypoxic respiratory failure (HCC); Hypokalemia; Debility Start: 10-16-2023 Telemedicine consult ation with patient Kalli De Anda APRN.TECHNICIAN PREVENTATIVE MEDICINE Work Phone: [facility] Start: 10-14-2023 ambulatory Kalli vigil OBGYN HOSPITALIST PHYSICIAN.TECHNICIAN PREVENTATIVE MEDICINE Work Phone: [facility] Comment on above: Urinary tract infect ion with hematuria, site unspecified (Primary Dx); Haemophilus influenzae infection; Hypertension, unspecified type; Other specified hypothyroidism; Acute hypoxic respiratory failure (HCC); Hypokalemia; Debility Start: 10-14-2023 Telemedicine consult ation with patient Kalli De Anda APRN.TECHNICIAN PREVENTATIVE MEDICINE Work Phone: [facility] Start: 10-09-2023 ambulatory Kalli vigil OBGYN HOSPITALIST PHYSICIAN.TECHNICIAN PREVENTATIVE MEDICINE Work Phone: [facility] Comment on above: Urinary tract infect ion with hematuria, site unspecified (Primary Dx); Haemophilus influenzae infection; Hypertension, unspecified type; Other specified hypothyroidism; Acute hypoxic respiratory failure (HCC); Debility Start: 10-09-2023 Telemedicine consult ation with patient Kalli De Anda APRN.TECHNICIAN PREVENTATIVE MEDICINE Work Phone: [facility] Start: 10-07-2023 ambulatory Kalli vigil OBGYN HOSPITALIST PHYSICIAN.TECHNICIAN PREVENTATIVE MEDICINE Work Phone: [facility] Comment on above: Urinary tract infect ion with hematuria, site unspecified (Primary Dx); Haemophilus influenzae infection; Hypertension, unspecified type; Other specified hypothyroidism; Acute hypoxic respiratory failure (HCC); Debility Start: 10-07-2023 Telemedicine consult ation with patient Kalli De Anda APRN.TECHNICIAN PREVENTATIVE MEDICINE Work Phone: [facility] Start: 10-02-2023 ambulatory Kalli vigil OBGYN HOSPITALIST PHYSICIAN.TECHNICIAN PREVENTATIVE MEDICINE Work Phone: [facility] Comment on above: Urinary tract infect ion with hematuria, site unspecified (Primary Dx); Haemophilus influenzae infection; Hypertension, unspecified type; Other specified hypothyroidism; Acute hypoxic respiratory failure (HCC); Debility; OAB (overactive bladder) Start: 10-02-2023 Telemedicine consult ation with patient Kalli De Anda APRN.TECHNICIAN PREVENTATIVE MEDICINE Work Phone: [facility] Start: 09-30-2023 ambulatory Kalli Castrejon t OBGYN HOSPITALIST PHYSICIAN.TECHNICIAN PREVENTATIVE MEDICINE Work Phone: [facility] Comment on above: Urinary tract infect ion with hematuria, site unspecified (Primary Dx); Haemophilus influenzae infection; Hypertension, unspecified type; Other specified hypothyroidism; Acute hypoxic respiratory failure (HCC); Debility Start: 09-30-2023 Telemedicine consult ation with patient Kalli De Anda APRN.TECHNICIAN PREVENTATIVE MEDICINE Work Phone: [facility] Start: 09-26-2023 ambulatory Kalli vigil OBGYN HOSPITALIST PHYSICIAN.TECHNICIAN PREVENTATIVE MEDICINE Work Phone: [facility] Comment on above: Urinary tract infect ion with hematuria, site unspecified (Primary Dx); Hypertension, unspecified type; Other specified hypothyroidism; Acute hypoxic respiratory failure (HCC); Debility Start: 09-26-2023 Telemedicine consult ation with patient Kalli De Anda APRN.TECHNICIAN PREVENTATIVE MEDICINE Work Phone: [facility] Start: 09-23-2023 ambulatory Kalli Castrejon t OBGYN HOSPITALIST PHYSICIAN.TECHNICIAN PREVENTATIVE MEDICINE Work Phone: [facility] Comment on above: Urinary tract infect ion with hematuria, site unspecified (Primary Dx); Hypertension, unspecified type; Other specified hypothyroidism; Acute hypoxic respiratory failure (HCC); Debility; OAB (overactive bladder) Start: 09-23-2023 Telemedicine consult ation with patient Kalli De Anda APRN.TECHNICIAN PREVENTATIVE MEDICINE Work Phone: [facility] Start: 09-13-2023 End: 09-23-2023 Evaluation and management of inpatient EMILY MCCARTY Facility:[id number] Start: 09-03-2023 End: 09-03-[address] EMILY MCCARTY MD Facility:A Start: 08-01-2023 End: 08-05-[address] EMILY MCCARTY MD Facility:A Start: 06-18-2023 End: 06-20-2023 Evaluation and management of inpatient WAQAS GONZALEZ MD [facility] Start: 06-09-[address] EMILY MCCARTY MD F acility:A Start: 05-23-2023 End: 05-23-[address] EMILY MCCARTY MD Facility:A Start: 02-03-2023 End: 02-07-[address] EMILY MCCARTY MD Facility:A Start: 12-31-2022 End: 12-31-2022 Emergency department patient visit EMILY MCCARTY Facility:[id number] Start: 11-01-[address] EMILY MCCARTY MD F acility:A Start: 04-08-2022 End: 04-08-2022 Patient encounter procedure NASIR KNUTSON OBGYN HOSPITALIST PHYSICIAN-TECHNICIAN PREVENTATIVE MEDICINE [facility] Start: 02-12-2022 End: 02-16-2022 Evaluation and management of inpatient DR NASRA MENEZES MD [facility] Start: 01-16-[address] Ari Cervantes Facility:[id number] Start: 01-22-2021 End: 01-22-2021 Patient encounter procedure MARNI SAMSON OBGYN HOSPITALIST PHYSICIAN-TECHNICIAN PREVENTATIVE MEDICINE [facility] Start: 01-21-2018 Patient encounter procedure Angelo Goyal Facility:[id number] Start: 10-15-2018 Patient encounter procedure Angelo Goyal Facility:[id number] Procedures Date Procedure Procedure Detail Performing Clinician Start: 08-11-2024 Basic metabolic pane l calcium total Helen Wan DO Work Phone: Start: 08-10-2024 Comprehensive metabo lic panel Gee Givens MD Work Phone: Start: 08-09-2024 OXYGEN THERAPY Gee Givens MD Work Phone: Start: 08-09-2024 OXYGEN THERAPY Gee Givens MD Work Phone: Start: 08-09-2024 Comprehensive metabo lic panel Gee Givens MD Work Phone: Start: 08-08-2024 OXYGEN THERAPY Gee Givens MD Work Phone: Start: 08-08-2024 OXYGEN THERAPY Gee Givens MD Work Phone: Start: 08-08-2024 Comprehensive metabo lic panel Gee Givens MD Work Phone: Start: 08-07-2024 OXYGEN THERAPY Gee Givens MD Work Phone: Start: 08-07-2024 OXYGEN THERAPY Gee Givens MD Work Phone: Start: 08-07-2024 Comprehensive metabo lic panel Gee Givens MD Work Phone: Start: 08-06-2024 OXYGEN THERAPY Gee Givens MD Work Phone: Start: 08-06-2024 Echo tthrc r-t 2d w/ wom-mode compl spec&colr d Fawn Dover OBGYN HOSPITALIST PHYSICIAN - TECHNICIAN PREVENTATIVE MEDICINE Work Phone: Start: 08-06-2024 Radiologic exam ches t single view Artur Neri MD Work Phone: Start: 08-06-2024 Comprehensive metabo lic panel Gee Givens MD Work Phone: Start: 08-05-2024 OXYGEN THERAPY Gee Givens MD Work Phone: Start: 08-05-2024 OXYGEN THERAPY Gee Givens MD Work Phone: Start: 08-04-2024 OXYGEN THERAPY Gee Givens MD Work Phone: Start: 08-04-2024 OXYGEN THERAPY Gee Givens MD Work Phone: Start: 08-04-2024 Blood gases any comb ination ph pco2 po2 co2 hco3 Artur Neri MD Work Phone: Start: 08-04-2024 Respiratory pathogen s DNA and RNA panel - Lower respiratory specimen by LYDIA with non-probe detection Fawn Dover [employer] TECHNICIAN PREVENTATIVE MEDICINE Work Phone: Start: 08-04-2024 Smr prim src gram/gi emsa stain bct fungi/cell Fawn oDver OBGYN HOSPITALIST PHYSICIAN [employer] [facility] Work Phone: Start: 08-04-2024 Iaadiadoo not otherw ise specified Fawn Dover OBGYN HOSPITALIST PHYSICIAN [employer] [facility] Work Phone: Start: 08-04-2024 LEGIONELLA AND STREP TOCOCCUS URINE ANTIGEN, ORDERABLE Fawn Dover OBGYN HOSPITALIST PHYSICIAN - TECHNICIAN PREVENTATIVE MEDICINE Work Phone: Start: 08-04-2024 URINE HOLD CUP Fawn Yvan Lau OBGYN HOSPITALIST PHYSICIAN [employer] TECHNICIAN PREVENTATIVE MEDICINE Work Phone: Start: 08-04-2024 Respiratory pathogen s DNA and RNA panel - Nasopharynx by LYDIA with non-probe detection Fawn Dover OBGYN HOSPITALIST PHYSICIAN [employer] TECHNICIAN PREVENTATIVE MEDICINE Work Phone: Start: 08-03-2024 OXYGEN THERAPY Fransisco willingham MD Work Phone: Start: 08-03-2024 Assay of troponin quantitative Stacia Juarez DO Work Phone: Start: 08-03-2024 OXYGEN THERAPY Fransisco Fidel willingham MD Work Phone: Start: 08-03-2024 Radiologic exam ches t single view Stacia Juarez DO Work Phone: Start: 08-03-2024 Ecg routine ecg w/le ast 12 lds trcg only w/o i&r Stacia Juarez DO Work Phone: Start: 08-03-2024 Comprehensive metabo lic panel Stacia Juarez DO Work Phone: Start: 08-03-2024 Manual Differential panel - Blood Stacia Juarez DO Work Phone: Start: 12-31-2022 Antibody screen MUKUND MCCARTY Comment on above: Order Comment: Speci men Type: BLOOD SPECIMENOrdering Facility: [facility] Address: [address] [place] [address] [place] [address] Performed By: #### L [id number], TSCR ####[facility] BLOOD BANKCLIA [id number] [address] Start: 07-04-2022 Echocardiography WAQAS GONZALEZ MD Comment [...] tract and dilation of esophageal stricture MARNI SAMSON OBGYN HOSPITALIST PHYSICIAN-TECHNICIAN PREVENTATIVE MEDICINE Start: 03-10-2015 Dental MARNI MILLER OBGYN HOSPITALIST PHYSICIAN-TECHNICIAN PREVENTATIVE MEDICINE Start: 03-10-2013 Total knee replacement MARNI SAMSON OBGYN HOSPITALIST PHYSICIAN-TECHNICIAN PREVENTATIVE MEDICINE Start: 03-10-2000 Decompression of med rufina nerve MARNI SAMSON OBGYN HOSPITALIST PHYSICIAN-TECHNICIAN PREVENTATIVE MEDICINE Start: 03-10-1989 Decompression of med rufina nerve MARNI SAMSON OBGYN HOSPITALIST PHYSICIAN-TECHNICIAN PREVENTATIVE MEDICINE Start: 03-10-1964 Dilation and curetta ge of uterus MARNI SAMSON OBGYN HOSPITALIST PHYSICIAN-[employer] Start: 03-10-1944 Tonsil and adenoid s tructure (body structure) MARNI SAMSON OBGYN HOSPITALIST PHYSICIAN-[employer] Arthroplasty of shoulder KELSEY SAMSON OBGYN HOSPITALIST PHYSICIANAdvanced [employer] Arthroscopy of knee MARNI SAMSON OBGYN HOSPITALIST PHYSICIANAdvanced [employer] Cholecystectomy MARNI BOB OBGYN HOSPITALIST PHYSICIAN-[employer] Extraction of cataract RICCARDO SAMSON OBGYN HOSPITALIST PHYSICIAN-[employer] H/O: hysterectomy MARNI MILLER OBGYN HOSPITALIST PHYSICIAN-[employer] History of lumbar fusion KELSEY SAMSON OBGYN HOSPITALIST PHYSICIANAdvanced [employer] History of total rep lacement of right hip joint MARNI SAMSON OBGYN HOSPITALIST PHYSICIANAdvanced [employer] Neuroplasty &/transp os median nrv carpal tunne MARNI SAMSON OBGYN HOSPITALIST PHYSICIANAdvanced [employer] Spinal arthrodesis MARNI SAMSON OBGYN HOSPITALIST PHYSICIANAdvanced [employer] Plan of Treatment Date Care Activity Detail Author Start: 10-23-2026 Diabetes Screening Diabetes Screenin g [facility] Start: 09-20-2026 Diabetes Screening Diabetes Screenin [facility] Start: 08-11-2025 Creatinine measurement Creatinine Le nikky [facility] Start: 08-11-2025 Potassium measurement Potassium Bethany l [facility] Start: 08-06-2025 Echocardiography Echocardiogram [facility] Start: 02-21-2025 End: 02-21-2025 Patient encounter procedure 02/21/2025 9:30 AM EST Office Visit [facility] Pulmonary and Sleep Medicine [facility] [address] [place] [address] Paulette Ram NP [address] [place] [address] [facility] Start: 09-01-2024 End: 09-01-2025 XR Chest 2 Views XR chest 2 views Imaging Routine Community acquired pneumonia of right lower lobe of lung Expected: 09/01/2024 (Approximate), Expires: 09/01/2025 [facility] Work Phone: Comment on above: Expected: 09/01/2024 (Approximate), Expires: 09/01/2025 Start: 09-01-2024 End: 09-01-2024 Patient encounter procedure 09/01/2024 9:30 AM EDT Office Visit [facility] Pulmonary [facility] Sleep Medicine [facility] [address] [place] [address] Paulette Ram NP [address] [place], [place] [id number] [facility] Pul[facility] Sleep [facility] Start: 03-10-2024 Medicare Advantage A nnual Wellness Visit Medicare Advantage Annual Wellness Visit [facility] Start: 11-09-2023 Covid-19 Vaccine ( season) Covid-19 Vaccine ( season) [facility] Start: 11-09-2023 COVID-19 Vaccine ( season) COVID-19 Vaccine ( season) [facility] Start: 11-09-2023 Influenza vaccination Influenza Vacc ine (#1) [facility] Start: 03-10-2023 Advance Directive Discussion Advance Directive Discussion [facility] Start: 03-10-2023 Behavioral Health Screening Behavioral Health Screening [facility] Start: 11-08-2022 Covid-19 Vaccine ( season) Covid-19 Vaccine ( season) [facility] Start: 03-22-2021 Shingrix Vaccine (2 of 2) Nation grix Vaccine (2 of 2) [facility] Start: 03-22-2021 Zoster Vaccines (2 of 2) Zoster Vacc gutierrez (2 of 2) [facility] Start: 2013 RSV Immunization for Adults (1 - 1-dose 75+ series) RSV Immunization for Adults (1 - 1-dose 75+ series) [facility] Start: 11-19-2003 Screening for osteoporosis Bone Dens ity Screening [facility] Start: 1998 RSV Vaccine (1 - 1-d ose 60+ series) RSV Vaccine (1 - 1-dose 60+ series) [facility] Start: 1957 DTaP/Tdap/Td Vaccine s (1 - Tdap) DTaP/Tdap/Td Vaccines (1 - Tdap) [facility] Start: 1957 Urine microalbumin profile DTa P,Tdap,Td Vaccine (1 - Tdap) [facility] Start: 1956 Anxiety Screening Anxiety Screening [facility] Start: 1956 Depression Screening Depression Scre ening [facility] Start: 1950 Depression Monitoring Depression Mon itoring [facility] Start: 1938 Lipid panel Lipid Panel [facility] Start: 1938 Screening for osteoporosis Bone Dens ity Scan [facility] Start: 1938 Thyroid stimulating hormone measurement TSH Level [facility] Immunizations Immunization Date Immunization Notes Care Provider Fa [facility] 02-26-2023 influenza, high dose seasonal, preservative-free; Translations: [Fluad Quadrivalent PF ] WAQAS GONZALEZ MD [facility] Comment on above: Result Comment: veri fied by Shira Barnes LPN 02-26-2023 influenza virus vacc ine, unspecified formulation Kalli De Anda APRN.TECHNICIAN PREVENTATIVE MEDICINE Work Phone: [facility] 01-23-2022 influenza, high dose seasonal, preservative-free DR NASRA MENEZES MD [facility] 02-28-2021 SARS-CoV-2 (COVID-19 ) mRNA-[address] NASRA MENEZES MD [facility] 01-25-[address] NASRA MENEZES MD [facility] 12-11-2020 influenza, injectabl e, quadrivalent, contains preservative; Translations: [Fluad Quadrivalent PF ] MARNI SAMSON APRN-TECHNICIAN PREVENTATIVE MEDICINE [facility] 07-04-2020 SARS-CoV-2 (COVID-19 ) mRNA-1273 vaccine [facility] Comment on above: Result Comment: 2nd dose 06-01-2020 SARS-CoV-2 (COVID-19 ) mRNA-1273 vaccine [facility]NI [facility] Comment on above: Result Comment: 1st dose 01-13-2020 Influenza vaccine, quadrivalent, adjuvanted; Translations: [Fluad Quadrivalent adjuvanted] [facility]NI SAMSON [facility] 01-06-2019 Influenza, injectabl e, Madin Radha Canine Kidney, preservative free, quadrivalent; Translations: [Flucelvax PF Quadrivalent ] MARNI ASMSON [facility] 12-07-2018 pneumococcal conjuga te vaccine, 13 valent; Translations: [Prevnar 13] MARNI SAMSON [facility] 11-25-2005 pneumococcal polysaccharide vaccine, 23 valent MARNI SAMSON [facility] Payers Date Payer Category Payer Medicare HMO [employer] AARP MEDICAR E ADVANTAGE [id number] 2023 Self-pay 2023 Unknown [id number] 2023 Medicare [id number] 2023 Medicaid [facility] MEDICAID MYC ARE [facility] MEDICAID [id number] 2023-Present [phone] [address] [place] [address] Medicaid [id number] 2023 Medicare [facility] AARP MEDICAR E [facility] AARP MEDICARE HMO [id number] 2023-Present [phone] [address] [address] [place] [address] HMO [id number] 2016 Private Health Insurance [id number] 1938 Unknown [id number] 2.16.840.1.073824.3.579. 2.356 1938 Unknown [id number] 2.16.840.1.455545.3.579. 2.356 1938 Unknown [id number] 2.16.840.1.299587.3.579. 2.62 1938 Unknown [id number] 2.16.840.1.979119.3.579. 2.62 1938 Unknown [id number] 2.16.840.1.428333.3.579. 2.62 1938 Unknown [id number] 2.16.840.1.920885.3.579. 2.627 1938 Unknown [id number] 2.16.840.1.990142.3.579. 2.627 1938 Unknown [id number] 2.16.840.1.650482.3.579. 2.627 1938 Unknown [id number] 2.16.840.1.947725.3.579. 2.627 1938 Unknown [id number] 2.16.840.1.554166.3.579. 2.1069 Private Health Insurance [id number] Unknown [id number] Unknown [id number] 2.16.840.1.076007.3.579. 2.462 Unknown [id number] 2.16.840.1.954833.3.579. 2.462 Unknown [id number] 2.16.840.1.523258.3.579. 2.462 Unknown [id number] 2.16.840.1.991495.3.579. 2.462 Unknown [id number] 2.16.840.1.054631.3.579. 2.462 Unknown [id number] 2.16.840.1.973120.3.579. 2.462 Unknown [id number] 2.16.840.1.550673.3.579. 2.462 Unknown [id number] 2.16.840.1.865208.3.579. 2.462 Unknown [id number] 2.16.840.1.223327.3.579. 2.462 Unknown [id number] 2.16.840.1.394182.3.579. 2.462 Unknown [id number] 2.16.840.1.120740.3.579. 2.462 Unknown [id number] 2.16.840.1.612630.3.579. 2.462 Social History Date Type Detail Facility Tobacco Tobacco Use: For mellisa smoker- quit 1960. Type: Cigarettes. [facility] Sex Assigned At Female [facility] Tobacco smoking status No Smokin g Status Entered [facility] Tobacco smoking stat us NHIS Tobacco smoking consumption unknown [facility] Start: 09-15-2023 End: 08-04-2024 History of Social function [facility] Start: 09-15-2023 End: 08-04-2024 [facility] Utilities [facility] Has the electric, [employer] s, oil, or water company threatened to shut off services in your home in past 12Mo No [facility] (I/We) worried wheth er (my/our) food would run out before (I/we) got money to buy more. Never true [facility] In the past 12 month s, has lack of transportation kept you from medical appointments or from getting medications? No [facility] Start: 1940 Sex Assigned At Not on file [facility] Start: 08-04-2024 Tobacco smoking status NHIS Never smoked tobacco [facility] Start: 08-04-2024 Tobacco use and exposure Smokeless tobacco non-user [facility] How often to you hav e a drink containing alcohol? Never [facility] How hard is it for y ou to pay for the very basics like food, housing, medical care, and heating Not very hard [facility] Do you feel stress - tense, restless, nervous, or anxious, or unable to sleep at night because your mind is troubled all the time - these days [OSQ] Only a little [facility] Start: 10-08-2021 Sex Female (finding) [facility] Functional Status Date Assessment Result Facility 08-04-2024 Total score [AUDIT-C] 0 08/05/19 25 5:13 AM Genaro Bryan RN [facility] 06-20-2023 Functional Status Repositions se lf, Encouraged/reinforced importance of turning [facility] 06-20-2023 Functional Status Room check performed [facility] 06-20-2023 Functional Status Mod I [facility] 06-20-2023 Functional Status [facility] 06-20-2023 Functional Status [facility] 06-20-2023 Functional Status [facility] 06-19-2023 Functional Status [facility] 06-19-2023 Functional Status Pt wanting to get aide to come into her home and assist her around the house. Pt reports that she was looking into [facility] but cannot afford it. [facility] 06-19-2023 Functional Status Multilevel home [facility] 06-19-2023 Functional Status Breakfast Percent 100 A [facility] 06-18-2023 Functional Status [facility] 06-18-2023 Functional Status Sensory Deficits None A [facility] 02-16-2022 Functional Status bilateral knee high [facility] 02-16-2022 Functional Status Room check performed [facility] 02-16-2022 Functional Status [facility] 02-16-2022 Functional Status [facility] 02-15-2022 Functional Status [facility] 02-15-2022 Functional Status 25 [facility] 02-15-2022 Functional Status [facility] 02-15-2022 Functional Status Pt wanting to get aide to come into her home and assist her around the house. Pt reports that she was looking into [facility] but cannot afford it. [facility] 02-14-2022 Functional Status [facility] 02-13-2022 Functional Status [facility] 02-13-2022 Functional Status Assistive Device Cane A [facility] Mental Status Date Assessment Result Facility 06-20-2023 Mental Status Orientation Oriented x 4 [facility] 06-20-2023 Mental Status Orientation Assessment Orie nted x 4 [facility] 06-20-2023 Mental Status [facility] [facility] 06-20-2023 Mental Status [facility] 02-16-2022 Mental Status Orientation Oriented x 4 [facility] 02-16-2022 Mental Status [facility] 02-15-2022 Mental Status [facility] 02-15-2022 Mental Status [facility] Clinical Notes 08-29-2020 to 09-01-2024 Paulette Ram NP - 09/01/2024 9:30 AM EDTPatient InstructionsTelephone Encounter - Arnoldo Bustillos RCP - 08/13/2024 2:18 PM EDTTelephone Encounter - Arnoldo Bustillos RCP - 08/13/2024 2:18 PM EDT Note Date & Type Note Facility 09-01-2024 History of Present illness Narrative Images from the original note were not included. [facility] Pulmonary Medicine [address] [place] [address] Date of Service: 09/01/2024 Visit type: An Established patient Chief Complaint/Reason for Referral: Hospital Follow-up and COPD (PNEUMONIA, HFLU, ARF,-O2 @ NIGHT PRN) SUBJECTIVE History of Present Illness: Krish Peralta ( 1940) is a 83 y.o. 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 Rhinovirus and haemophilus influenzae. Completed breathing treatments, steroids, abx. Baseline oxygen 2L and wears 4L at night. Followed by pulmonary Presents today accompanied by diesel truck driver, Asim, from [facility] where patient resides. Patient is known as a poor historian and poor short term memory. Able to answer everything appropriately. Here today on room air, SpO2 90%. Wears supplemental oxygen as needed during the day and wearing 2-4 liters at night to sleep. Reports does not wish to wear any oxygen during the day even if she drops below 90%. Has albuterol inhaler and nebulizer as needed, no maintenance inhaler. Complains of having shortness of breath at times each day accompanied with wheezing and coughing. Remains in wheelchair mostly, able to take steps to get in chair, bed or to bathroom. Increased work of breathing with activity. Smoking history is vague, states only smoked briefly when she was younger, and around second hand smoke most of her life. Claustrophobic cannot use PAP therapy [place] asthma Pneumonia vaccine: Seasonal Flu vaccine: COVID-19 vaccine: MMRC Dyspnea Scale: Grade Description of Breathlessness 0 I only get breathless with strenuous exercise. 1 I get short of breath when hurrying on level ground or walking up a slight hill. 2 On level ground, I walk slower than people of the same age because of breathlessness, or have to stop for breath when walking at my own pace. 3 I stop for breath after walking about 100 yards or after a few minutes on level ground. 4 I am too breathless to leave the house or I am breathless when dressing. OBJECTIVE MEDICAL HISTORY: Medical History[1] SURGICAL HISTORY: Surgical History[2] ALLERGIES: Allergies[3] MEDICATIONS: Current Medications[4] SOCIAL HISTORY: Social History Tobacco Use Smoking status: Never Smokeless tobacco: Never Substance Use Topics Alcohol use: Not on file FAMILY HISTORY: Family History[5] REVIEW OF SYSTEMS: Review of Systems Constitutional: Negative for activity change, chills, fatigue and fever. HENT: Negative for congestion. Respiratory: Positive for cough, chest tightness and wheezing. Negative for shortness of breath. Cardiovascular: Negative for chest pain, palpitations and leg swelling. Neurological: Negative for light-headedness and headaches. VITAL SIGNS: BP 98/62 Pulse 67 Temp 36.5 C (97.7 F) (Temporal) Ht 5' (1.524 m) SpO2 90% BMI 42.97 kg/m PHYSICAL EXAM: Physical Exam Constitutional: General: She is not in acute distress. Appearance: She is obese. She is not ill-appearing. HENT: Head: Normocephalic. Eyes: General: No scleral icterus. Right eye: No discharge. Left eye: No discharge. Cardiovascular: Rate and Rhythm: Normal rate and regular rhythm. Pulses: Normal pulses. Heart sounds: Normal heart sounds. Pulmonary: Effort: No respiratory distress. Breath sounds: Examination of the right-lower field reveals decreased breath sounds. Examination of the left-lower field reveals decreased breath sounds. Decreased breath sounds present. No wheezing, rhonchi or rales. Skin: General: Skin is warm and dry. Neurological: Mental Status: She is alert and oriented to person, place, and time. Psychiatric: Behavior: Behavior normal. Cognition and Memory: Memory is impaired. Comments: Poor historian, trouble with short term memory. DATA REVIEWED: PFT's--none on file CXR--08/06/2024 IMPRESSION: Lines, tubes, and devices: None. Lungs and pleura: Prominence of the central pulmonary vasculature without overt pulmonary edema. Streaky bibasilar opacities including left basilar retrocardiac opacity, likely atelectasis or scarring. Superimposed left basilar retrocardiac infectious/inflammatory process is not excluded. Mild interval improvement of right basilar opacity. No sizeable pleural effusion or pneumothorax. Cardiomediastinal silhouette: Stable enlarged cardiac silhouette.Atherosclerotic calcifications of the aortic arch Other: Degenerative changes of the spine and shoulders. Incompletely visualized lumbar fusion hardware CT Chest/CTA Chest/CT Lung Screening-- none on file TTE-- 08/06/2024 Left Ventricle: Not well visualized. Left ventricle [...] diameter is 4.5 cm. Technically difficult study. ASSESSMENT and PLAN 1. Hospital discharge follow-up (Primary) Clinically improved, completed abx and steroid. Bronchodilator therapy. Continue diureses 2. Acute on chronic respiratory failure with hypoxemia (HCC) - continue to wear supplemental oxygen as needed for symptoms of shortness of breath and maintain SpO2 90% or greater. - discussed consequences of hypoxemia, primarily insufficient oxygen to body's tissues and organs and can cause irreversible damage. Maintaining oxygen saturations greater than 90 would prevent readmissions to the hospital. 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 3. COPD exacerbation (HCC) - no PFTs on file, states has never had one and does not wish to have one now - explained information test could provide and for proper treatment. reported she would consider in future - wanted to optimize patient breathing with triple therapy. Gave 1 month sample in office today. Provided education and demonstration for proper use of inhaler of Trelegy. - provided with 1 month Trelegy inhaler, asked her to try and let me know if it is helping and we can send a script for refills. Patient was not on a maintenance inhaler prior. Feel will benefit after discussing current breathing symptoms/complaints - called [facility] where patient resides and spoke with Catina, her nurse, and discussed plan and treatment with her. 4. Community acquired pneumonia of right lower lobe of lung - Clinically improved - XR chest 2 views; Future 5. JOCELIN (obstructive sleep apnea) Suspected JOCELIN - no sleep study on file. Patient does not wish to have one done at this time. - weight loss would also be beneficial for lung function and sleep apnea. - patient stated due to claustrophobia, she would never wear a mask anyway. 6. Smoking history Patient herself rarely smoked. Very little when she was younger. Poor historian, unable to give timeline. Reports was always around second hand smoke. From growing up and her marriage. FOLLOW UP: Follow up in about 6 months (around 03/03/2025), or if symptoms worsen or fail to improve. Portions of the information within this encounter were entered using an electronic dictation system. Best attempts were made to proofread the information prior to note completion. Despite the review of the information, some errors may remain. If there are questions related to the information contained within the note please contact the signing provider directly. Electronically signed by: Paulette Ram NP Pulmonary & Sleep Medicine [1] No past medical history on file. [2] No past surgical history on file. [3] Allergies Allergen Reactions Morphine Hives Other Reaction(s): HIVES, ITCHING , NAUSEA Aspartame Codeine Duloxetine Unknown Lorazepam Oxycodone Wound Dressing Adhesive [4] Current Outpatient Medications: acetaminophen (Tylenol) 325 MG tablet, Take 325 mg by mouth every 8 hours., Disp: , Rfl: Albuterol Sulfate 108 (90 Base) MCG/ACT aerosol powder , Inhale 2 puffs every 4 hours as needed (SOB/ Wheezing)., Disp: , Rfl: amLODIPine (Norvasc) 5 MG tablet, Take 5 mg by mouth Every 24 hours., Disp: , Rfl: baclofen (Lioresal) 10 MG tablet, Take 10 mg by mouth every 8 hours., Disp: , Rfl: beclomethasone HFA (Qvar) 40 MCG/ACT inhaler, Inhale 40 mcg every 12 hours., Disp: , Rfl: benzonatate (Tessalon) 100 MG capsule, Take 100 mg by mouth 3 times daily as needed for cough., Disp: , Rfl: bisacodyl (Dulcolax) 10 MG suppository, Insert 10 mg into the rectum Daily as needed for constipation., Disp: , Rfl: escitalopram (Lexapro) 10 MG tablet, Take 10 mg by mouth Nightly., Disp: , Rfl: Esomeprazole Magnesium 20 MG tablet delayed-release, Take 20 mg by mouth Every 24 hours., Disp: , Rfl: furosemide (Lasix) 20 MG tablet, Take 20 mg by mouth 2 times daily., Disp: , Rfl: hydrOXYzine HCl (Atarax) 25 MG tablet, Take 25 mg by mouth 3 times daily., Disp: , Rfl: ipratropium-albuterol (Duo-Neb) 0.5-2.5 mg/3 mL nebulizer solution, Take 3 mL by nebulization every 4 hours as needed (cough)., Disp: , Rfl: labetalol (Normodyne) 200 MG tablet, Take 200 mg by mouth Every 24 hours., Disp: , Rfl: levothyroxine (Synthroid, Levoxyl) 137 MCG tablet, Take 1 tablet by mouth Every 24 hours., Disp: , Rfl: loperamide (Imodium A-D) 2 MG tablet, Take 2 mg by mouth every 4 hours as needed for diarrhea., Disp: , Rfl: mirabegron ER (Myrbetriq) 25 MG 24 hr tablet, Take 25 mg by mouth daily., Disp: , Rfl: ondansetron (Zofran) 4 MG tablet, Take 4 mg by mouth every 8 hours as needed for nausea or vomiting., Disp: , Rfl: potassium chloride CR (K-Tab) 20 MEQ ER tablet, Take 20 mEq by mouth every 12 hours., Disp: , Rfl: predniSONE (Deltasone) 10 MG tablet, Take 2 tablets (20 mg) by mouth daily for 2 days, THEN 1 tablet (10 mg) daily for 2 days. Do not start before August 12, 2024., Disp: 6 tablet, Rfl: 0 senna-docusate (Senexon-S) 8.6-50 MG tablet, Take 1 tablet by mouth Daily as needed for constipation., Disp: , Rfl: traZODone (Desyrel) 50 MG tablet, Take 50 mg by mouth Nightly., Disp: , Rfl: Gmlmfqjtixn-Qnxpxfbkh-Dzgnlh (Trelegy Ellipta) 200-62.5-25 MCG/ACT aerosol powder , Inhale 1 puff daily. Rinse mouth with water after use to reduce aftertaste and incidence of candidiasis. Do not swallow., Disp: 2 each, Rfl: 0 [5] No family history on file. documented in this encounter [facility] 09-01-2024 Instructions Ronda Chapman - 09/01/2024 9:30 AM EDT YOUR APPOINTMENT TODAY WAS WITH THE [facility] LUNG NODULE [facility], COPD CLINIC, PULMONARY AND SLEEP MEDICINE OFFICE. PLEASE CALL OUR OFFICE AT [phone] for our [place] office location or [phone] for our [place] location, IF YOU HAVE NOT RECEIVED YOUR TEST RESULTS 7 DAYS AFTER TESTING IS COMPLETED. PLEASE REMEMBER TO REQUEST REFILLS AT YOUR OFFICE VISITS. PHONE/FAX REQUESTS REQUIRE 48-72 HOURS FOR RESPONSE. A FRIENDLY REMINDER COPAYS ARE DUE AT TIME OF SERVICE. THANK YOU. Our Patients Are Important! We want to improve and you can help. After your visit we want you to feel: Listened to, Respected and have your health care explained. You may receive a survey asking you about your visit. Please complete the survey. We will use your feedback to make improvements. COVID-19 VACCINATION INFORMATION: PH. [phone] [email or web address] [facility] Central Scheduling [phone] [facility] Sleep Scheduling [phone] documented in this encounter [facility] 08-13-2024 Telephone encounter Note COPD Navigator Note Called patient on home phone. No answer. Left Voicemail. [facility] 08-13-2024 Miscellaneous Notes COPD Navigator Note Called patient on home phone. No answer. Left Voicemail. documented in this encounter [facility] 08-11-2024 Nurse Note Patient sent with belongings with transport to facility at this time. [facility] 08-11-2024 Nurse Note Patient sent with belongings with transport to facility at this time. Report called to facility [facility], [address]. [...] intact. Pt stood with max assist from ply bander for posterior assessment. Blanchable erythema/purple tissues noted to bilateral buttocks. DTI noted to right buttock, linear area of nonblanchable purple tissues, measures 1cm x 0.3cm, with surrounding blanchable erythema and purple tissues. See photo below. Wound TAX ACCOUNTING MANAGER group consulted. Brief in place. Pt incontinent [...] Verbalized understanding. Prevention Measures in place, including: [place] sheet with pillows/wedges, Heels elevated off bed on pillows, Zinc/Moisture Barrier ointment (applied), Waffle chair cushion (ordered for pt). Skin Care precaution order set in place. Dietitian consult order placed d/t wound. PT consult in place. D/W nursing staff. Right buttock Will continue to follow pt. Please secure chat for any questions or concerns. Mago Cavazos RN documented in this encounter [facility] 08-11-2024 Nurse Note Report called to facility [facility] [address]. RN familiar with patient. Waiting on transport. [facility] 08-11-2024 History of Present illness Narrative Images from the original note were not included. PHYSICAL THERAPY [facility] Treatment Note Name/MRN: Krish Peralta ([id number]) Date of : 1940 Age: 83 y.o. Room/Bed: B2-255/B2-255 A Visit #: 5 out of 8 Discharge Recommendation: Half-Way Facility Equipment Needed: No Assessment Pt continues to make good overall progress towards established therapy goals this date. Remains limited by SOB and fatigue. Pt completed STS transfers with fww at [facility], Gait training with fww [...] Pt completed gait training with fww at [facility] progressing to SBAx1. Cues [...] from the original note were not included. [facility] Pulmonary Medicine [address] [place] [address] Patient - Krish Peralta, Age - 83 y.o. - 1940 Room Number - B2-255/B2-255 A Consulting - Helen Wan DO Primary Care Physician - No primary care provider on file. Date of Admission - 08/03/2024 4:21 PM Hospital Day - 8 Chief Complaint: shortness of breath Krish Peralta is a 83 y.o. female who [...] 16 INR PTT No results found for: "PTT" Cultures Pneumonia PCR (08/04/24): Haemophilus influenzae, rhinovirus [...] completed Okay for discharge from pulmonary standpoint [facility] Pulmonary Medicine [facility] [1] amLODIPine, 5 mg, Oral, [...] Continue diet as ordered Adult diet Regular -Cabinetmaker Helper ordering meals -notified diet office of pt [...] muscle mass loss Fluid Accumulation: (moderate) Extremities Lineman A Class Strength: Not Performed Nutrition Assessment: 83 y.o [...] On: Kcal/kg Weight Used for Energy Requirements: [place] Weight for Energy Calculation (kg): 45 kg Total Energy Requirements (kcals/day): 9304-1928 (25-30 kcal/kg IBW) Weight Used for Protein Requirements: [place] Weight in Kg Used for Protein Requirements: [...] lb) (11/11/23) % Weight Change (Calculated): 11.7 [place] Body Weight (lbs) (Calculated): 100 lbs [place] Body Weight (Kg) (Calculated): 45 kg % [place] Body Weight (Calculated): 220 % BMI (kg/m2) [...] Weight Discharge Planning: Continue current diet Kamilah Rordiguez RD Contact: *[phone] or via Secure Chat Hospitalist Progress Note 08/10/[id number]: Please page me ([phone]) for patient care issues. [phone]: Please page [facility] Hospitalist for any issues. Subjective: Admit Date: 08/03/2024 PCP: No primary care provider on file. Room#: B2-255/-255 A Interval History: patient admitted for SOB [...] History: Medical History[1] LABS: CBC: Recent Labs 08/08/243 08/09/249 08/10/24 0453 WBC 7.3 9.3 9.2 RBC 4.73 4.87 4.64 HGB 13.6 14.1 13.3 HCT 41.9 43.0 41.1 MCV 88.6 88.3 88.6 RDW 13.7 13.6 13.8 PLT 124* 146 133* BMP: Recent Labs 08/08/2431208/09/249 08/10/24 0453 NA 139 138 137 K 4.7 4.5 4.2 CL 100 99 101 CO2 29 29 27 BUN 21 24* 24* CREATININE 0.80 0.83 0.80 GLUCOSE 118* 118* 112 CALCIUM 9.8 9.9 9.4 ANIONGAP 10 10 9 LIVER PROFILE: Recent Labs 08/08/24 0313 08/09/24 0319 08/10/24 0453 AST 16 11 17 ALT 9 6 9 BILITOT 0.3 0.3 0.3 ALKPHOS 78 78 78 PROT 7.5 7.3 6.7 PT/INR: No results for input(s): "PROTIME", "INR" in the last 72 hours. CARDIAC ENZYMES: No results for input(s): "TROPONINI" in the last 72 hours. Procalcitonin: No results found for: "PROCAL" COVID-19 PCR: No results for input(s): "COVID19" in the last 72 hours. Objective: Vitals: [...] Extended Emergency Contact Information Primary Emergency Contact: EMMA RICHARDS Mobile Relation: Daughter Preferred language: Scottish Packaging Specialist needed? No Secondary Emergency Contact: LIONEL REYNOSO Mobile Relation: Son Preferred language: [employer] Specialist needed? No Helen Wan DO Division of Hospitalist Medicine Inpatient Medical Services/[facility] PAGER: Epic chat [1] No past medical [...] from the original note were not included. [facility] Pulmonary Medicine [address] [place] [id number] Patient - Krish Peralta, Age - 83 y.o. - 1940 Room Number - B2-255/B2-255 A Consulting - Helen Wan DO Primary Care Physician - No primary care provider on file. [facility] # - [id number] Date of Admission - 08/03/2024 4:21 PM Hospital Day - 7 Chief Complaint: shortness of breath Krish Peralta is a 83 y.o. female who [...] last 7 days Lab Units 08/10/24 0453 08/09/2431808/08/24 031 SODIUM mmol/L 137 138 139 POTASSIUM mmol/L [...] last 7 days Lab Units 08/10/24 0453 08/09/2431808/08/24 031 ALK PHOS U/L 78 78 78 BILIRUBIN TOTAL mg/dL 0.3 0.3 0.3 PROTEIN TOTAL g/dL 6.7 7.3 7.5 ALT U/L 9 6 9 AST U/L 17 11 16 INR PTT No results found for: "PTT" Cultures Pneumonia PCR (08/04/24): Haemophilus influenzae, rhinovirus [...] cephalexin tolerating well Darrick Marcum Pulmonary Medicine [facility] [1] amLODIPine, 5 mg, Oral, [...] original note were not included. PHYSICAL THERAPY [facility] Treatment Note Name/MRN: Krish Peralta ([id number]) Date of : 1940 Age: 83 y.o. Room/Bed: B2-255/B2-255 A Visit #: 4 out of 8 (visits added by PT due to continued need for acute skilled PT) Discharge Recommendation: Half-Way Facility Equipment Needed: No Assessment Pt demos [...] outside of room) Goals Patient Stated Goal: "to get out of here" Encounter Problems Encounter Problems (Active) Balance Patient [...] x1) Jocelyn Tian PT Hospitalist Progress Note 08/09/[id number]: Please page me ([phone]) for patient care issues. [phone]: Please page [facility] Hospitalist for any issues. Subjective: Admit Date: 08/03/2024 PCP: No primary care provider on file. Room#: -255/[facility] A Interval History: Patient currently sitting up [...] the Lasix is helping. Adult diet Regular @[id number]@ 24HR INTAKE/OUTPUT: Intake/Output Summary (Last 24 hours) [...] 11 10 10 LIVER PROFILE: Recent Labs 08/07/24 0125 08/08/2431208/09/24318 AST 22 16 11 ALT 10 9 6 BILITOT 0.4 0.3 0.3 ALKPHOS 78 78 78 PROT 7.2 7.5 7.3 PT/INR: No results for input(s): "PROTIME", "INR" in the last 72 hours. CARDIAC ENZYMES: No results for input(s): "TROPONINI" in the last 72 hours. Procalcitonin: No results found for: "PROCAL" COVID-19 PCR: No results for input(s): "COVID19" in the last 72 hours. Objective: Vitals: [...] recommending SNF (she came from facility at [facility] and plan is to go back to [facility] with restorative therapy. However, she is still requiring a lot of O2 (on high flow NC) and pulmonary anticipating intermediate designer weaning and recommending LTACH -check daily labs Extended Emergency Contact Information Primary Emergency Contact: EMMA RICHARDS Mobile Relation: Daughter Preferred language: [employer] Specialist needed? No Secondary Emergency Contact: LIONEL REYNOSO Mobile Relation: Son Preferred language: [employer] Specialist needed? No Gee Givens MD Division of Hospitalist Medicine Inpatient Medical Services/[facility] PAGER: Epic chat [1] No past medical [...] from the original note were not included. [facility] Pulmonary Medicine [address] [place] [id number] Patient - Krish Peralta, Age - 83 y.o. - 1940 Room Number - B2-255/B2-255 A Consulting - Gee Givens MD Primary Care Physician - No primary care provider on file. Date of Admission - 08/03/2024 4:21 PM Hospital Day - 6 Chief Complaint: shortness of breath Krish Peralta is a 83 y.o. female who [...] from last 7 days Lab Units 08/09/24 0319 WBC AUTO 10*3/uL 9.3 HEMOGLOBIN g/dL 14.1 HEMATOCRIT % 43.0 PLATELETS 10*3/uL 146 BMP: Results from last 7 days Lab Units 08/09/24 0319 08/08/24 0313 08/07/24 0125 SODIUM mmol/L 138 139 138 POTASSIUM [...] from last 7 days Lab Units 08/09/24 0319 08/08/24 0313 08/07/24 0125 ALK PHOS U/L 78 78 78 BILIRUBIN TOTAL mg/dL 0.3 0.3 0.4 PROTEIN TOTAL g/dL 7.3 7.5 7.2 ALT U/L 6 9 10 AST U/L 11 16 22 INR PTT No results found for: "PTT" Cultures Pneumonia PCR (08/04/24): Haemophilus influenzae, rhinovirus [...] as tolerated, keeping her on dry side [facility] Pulmonary Medicine [facility] [1] amLODIPine, 5 mg, Oral, [...] original note were not included. PHYSICAL THERAPY [facility] Treatment Note Name/MRN: Krish Peralta ([id number]) Date of : 1940 Age: 83 y.o. Room[facility]Bed: [facility] A Visit #: 3 out of 5 Discharge Recommendation: Half-Way Facility Equipment Needed: No Assessment Pt continues to demonstrate decreased functional mobility and demos limited participation in session. Pt completed x1 sit to stand transfer with Mitesh. Pt tolerated some seated exercises however reports [...] From recliner. Pt demos proper hand placement. Mitesh required for overall stability when ascending/descending. Pt [...] Pt also demos coughing fits and states "I'm miserable". Plan Continue acute PT per plan of [...] (No Stairs) : 15 JH-HLM -M Score: Transferred to chair/commode Goals Patient Stated [...] 8:39 AM EDT Hospitalist Progress Note 08/08/2024 [phone]: Please page me ([phone]) for patient care issues. [phone]: Please page [facility] Hospitalist for any issues. Subjective: Admit [...] maybe a little sob. Adult diet Regular @[id number]@ 24HR INTAKE/OUTPUT: Intake/Output Summary (Last 24 hours) at 08/08/2024 1112 Last data filed at 08/07/2024 1952 Gross per 24 hour Intake -- Output 800 ml Net -800 ml Past Medical History: Medical History[1] LABS: CBC: Recent Labs 08/06/24 0233 08/07/245 08/08/24312 WBC 14.1* 12.1* 7.3 RBC 4.49 4.86 4.73 HGB 13.0 14.1 13.6 HCT 39.6 42.1 41.9 MCV 88.2 86.6 88.6 RDW 13.2 13.5 13.7 PLT 160 153 124* BMP: Recent Labs 08/06/24 0233 08/07/24 0125 08/08/24312 NA 135* 138 139 K 3.9 4.4 4.7 CL 95* 101 100 CO2 30 26 29 BUN 27* 28* 21 CREATININE 0.84 0.79 0.80 GLUCOSE 123* 74* 118* CALCIUM 10.3* 9.8 9.8 ANIONGAP 10 11 10 LIVER PROFILE: Recent Labs 08/06/24 0233 08/07/24 0125 08/08/24 0313 AST 16 22 16 ALT 6 10 9 BILITOT 0.4 0.4 0.3 ALKPHOS 83 78 78 PROT 7.7 7.2 7.5 PT/INR: No results for input(s): "PROTIME", "INR" in the last 72 hours. CARDIAC ENZYMES: No results for input(s): "TROPONINI" in the last 72 hours. Procalcitonin: No results found for: "PROCAL" COVID-19 PCR: No results for input(s): "COVID19" in the last 72 hours. Objective: Vitals: [...] recommending SNF (she came from facility at [facility] and plan is to [facility] back [facility] [facility] with restorative therapy. However, she is still requiring a lot of O2 (on high flow NC) and pulmonary anticipating intermediate designer weaning and recommending LTACH -check daily labs Extended Emergency Contact Information Primary Emergency Contact: EMMA RICHARDS Mobile Relation: Daughter Preferred language: [employer] Pack[employer] Specialist needed? No Secondary Emergency Contact: LIONEL REYNOSO Mobile Relation: Son Preferred language: Scottish Packaging Specialist needed? No Gee Givens MD Division of Hospitalist Medicine Inpatient Medical Services/[facility] PAGER: Epic chat [1] No past medical [...] mg, Oral, Nightly Hospitalist Progress Note 08/07/2024 [phone]: Please page me ([phone]) for patient care issues. [phone]: Please page [facility] Hospitalist for any issues. Subjective: Admit [...] maybe a little sob. Adult diet Regular @[id number]@ 24HR INTAKE/OUTPUT: No intake or output data [...] 7.7 7.2 PT/INR: No results for input(s): "PROTIME", "INR" in the last 72 hours. CARDIAC ENZYMES: No results for input(s): "TROPONINI" in the last 72 hours. Procalcitonin: No results found for: "PROCAL" COVID-19 PCR: No results for input(s): "COVID19" in the last 72 hours. Objective: Vitals: [...] recommending SNF (she came from facility at [facility] and plan is to go back to [facility] with restorative therapy. However, she is still requiring a lot of O2 (on high flow NC) and pulmonary anticipating intermediate designer weaning and recommending LTACH -check daily labs Extended Emergency Contact Information Primary Emergency Contact: EMMA RICHARDS Mobile Relation: Daughter Preferred language: [employer] Specialist needed? No Secondary Emergency Contact: LIONEL REYNOSO Mobile Relation: Son Preferred language: Scottish Packaging Specialist needed? No Gee Givens MD Division of Hospitalist Medicine Inpatient Medical Services/[facility] PAGER: Epic chat [1] No past medical [...] original note were not included. PHYSICAL THERAPY [facility] Treatment Note Name/MRN: Krish Peralta ([id number]) Date of : 1940 Age: 83 y.o. Room[facility]Bed: [facility] A Visit #: 2 out of 5 Discharge Recommendation: Half-Way Facility Equipment Needed: No Assessment Pt seated [...] 08/11/24 Therapy Time Individual Co-treatment Time In 57 Time Out 1010 Minutes 13 Timed Code Treatment Minutes: 13 Minutes (x1 ther ex) Clary Wilson PTA Cosigned by Nicole Carrasco PT at 08/07/2024 3:11 PM EDT Images from the original note were not included. [facility] Pulmonary Medicine [address] [place], [place] [id number] Patient - Krish Peralta, Age - 83 y.o. - 1940 Room Number - B2-243/B2-243 B Consulting - Gee Givens MD Primary Care Physician - No primary care provider on file[id number] Date of Admission - 08/03/2024 4:21 PM Hospital Day - 3 Chief Complaint: shortness of breath Krish Peralta is a 83 y.o. female who [...] 17 INR PTT No results found for: "PTT" Cultures Pneumonia PCR (08/04/24): Haemophilus influenzae, rhinovirus [...] Neri MD Pulmonary & Critical Care Medicine [facility] [1] amLODIPine, 5 mg, Oral, [...] stomahesive in petrolatum [3] Hospitalist Progress Note 08/06/20246994854-9933: Please page me ([phone]) for patient care issues. [phone]: Please page [facility] Hospitalist for any issues. Subjective: Admit [...] no fevers or chills Adult diet Regular @[id number]@ 24HR INTAKE/OUTPUT: No intake or output data in the 24 hours ending 08/06/24 0937 Past Medical History: Medical History[1] LABS: CBC: Recent Labs 08/03/24171108/04/24 1135 08/06/24 0233 WBC 11.7* -- 14.1* RBC 4.57 -- 4.49 HGB 13.2 13.7 13.0 HCT 41.5 -- 39.6 MCV 90.8 -- 88.2 RDW 14.1 -- 13.2 PLT 141 -- 160 BMP: Recent Labs 08/03/24171108/06/24 0233 NA 136 135* K 4.0 3.9 CL 96* 95* CO2 29 30 BUN 13 27* CREATININE 0.79 0.84 GLUCOSE 90 123* CALCIUM 9.7 10.3* ANIONGAP 11 10 LIVER PROFILE: Recent Labs 08/03/24171108/06/24 0233 AST 17 16 ALT <6 6 BILITOT 0.8 0.4 ALKPHOS 85 83 PROT 7.7 7.7 PT/INR: No results for input(s): "PROTIME", "INR" in the last 72 hours. CARDIAC ENZYMES: No results for input(s): "TROPONINI" in the last 72 hours. Procalcitonin: No results found for: "PROCAL" COVID-19 PCR: No results for input(s): "COVID19" in the last 72 hours. Objective: Vitals: [...] recommending SNF (she came from facility at [facility] and plan is to go back to [facility] with restorative therapy. However, she is still requiring a lot of O2 (on high flow NC) and pulmonary anticipating assisted weaning and recommending LTACH -check daily labs Extended Emergency Contact Information Primary Emergency Contact: EMMA RICHARDS Mobile Relation: Daughter Preferred language: Scottish [employer] Specialist needed? No Secondary Emergency Contact: LIONEL REYNOSO Mobile Relation: Son Preferred language: Scottish Packaging Specialist needed? No Gee Givens MD Division of Hospitalist Medicine Inpatient Medical Services/[facility] PAGER: Epic chat [1] No past medical [...] original note were not included. PHYSICAL THERAPY [facility] Treatment Note Name/MRN: Krish Peralta ([id number]) Date of : 1940 Age: 83 y.o. Room/Bed: B2-243/B2-243 B Visit #: 1 out of 5 Discharge Recommendation: Half-Way Facility Equipment Needed: No Assessment Pt continues [...] x1) Chuck Ruvalcaba PT Hospitalist Progress Note 08/05/[id number]: Please page me ([phone]) for patient care issues. [phone]: Please page [facility] Hospitalist for any issues. Subjective: Admit [...] No nausea or vomiting. Adult diet Regular @[id number]@ 24HR INTAKE/OUTPUT: Intake/Output Summary (Last 24 hours) [...] PROT 7.7 PT/INR: No results for input(s): "PROTIME", "INR" in the last 72 hours. CARDIAC ENZYMES: No results for input(s): "TROPONINI" in the last 72 hours. Procalcitonin: No results found for: "PROCAL" COVID-19 PCR: No results for input(s): "COVID19" in the last 72 hours. Objective: Vitals: [...] Extended Emergency Contact Information Primary Emergency Contact: EMMA RICHARDS Mobile Relation: Daughter Preferred language: Scottish [employer]aging Specialist needed? No Secondary Emergency Contact: LIONEL REYNOSO Mobile Relation: Son Preferred language: Scottish Packaging Specialist needed? No Gee Givens MD Division of Hospitalist Medicine Inpatient Medical Services/[facility] PAGER: Epic chat [1] No past medical [...] from the original note were not included. [facility] Pulmonary Medicine [address] [place] [address] Patient - Krish Peralta, Age - 83 y.o. - 1940 Room Number - B2-243/B2-243 B Consulting - Gee Givens MD Primary Care Physician - No primary care provider on file. [id number] Date of Admission - 08/03/2024 4:21 PM Hospital Day - 2 Chief Complaint: shortness of breath Krish Peralta is a 83 y.o. female who [...] 17 INR PTT No results found for: "PTT" Cultures Pneumonia PCR (08/04/24): Haemophilus influenzae, rhinovirus [...] Neri MD Pulmonary & Critical Care Medicine [facility] [1] amLODIPine, 5 mg, Oral, [...] chloride 0.9% [3] Hospitalist Progress Note 08/04/2024 [phone]: Please page me ([phone]) for patient care issues. [phone]: Please page [facility] Hospitalist for any issues. Subjective: Admit Date: 08/03/2024 PCP: No primary care provider on file. Room#: -243/[facility] B Interval History: No overnight issues. Patient [...] No fevers or chills. Adult diet Regular @[id number]@ 24HR INTAKE/OUTPUT: Intake/Output Summary (Last 24 hours) [...] PROT 7.7 PT/INR: No results for input(s): "PROTIME", "INR" in the last 72 hours. CARDIAC ENZYMES: No results for input(s): "TROPONINI" in the last 72 hours. Procalcitonin: No results found for: "PROCAL" COVID-19 PCR: No results for input(s): "COVID19" in the last 72 hours. Objective: Vitals: [...] Extended Emergency Contact Information Primary Emergency Contact: EMMA RICHARDS Mobile Relation: Daughter Preferred language: Scottish Packaging Specialist needed? No Secondary Emergency Contact: LIONEL REYNOSO Mobile Relation: Son Preferred language: Scottish Packaging Specialist needed? No Gee Givens MD Division of Hospitalist Medicine Inpatient Medical Services/[facility] PAGER: blogTV chat [1] No past medical history on file. [2] [3] azithromycin, 500 mg, IntraVENous, q24h cefTRIAXone, 1,000 mg, IntraVENous, q24h enoxaparin, 30 mg, SubCUTAneous, 2 times per day ipratropium-albuterol, 1 ampule, Nebulization, q4h WA sodium chloride 0.9%, 10 mL, IntraVENous, 2 times per day Images from the original note were not included. PHYSICAL THERAPY [facility] Initial Evaluation Name/MRN: Krish Peralta ([id number]) Evaluation Date: 08/04/2024 Date of : 1940 Admission Date: 08/03/2024 4:21 PM Age: 83 y.o. Room/Bed: B2243/[facility] B Discharge Recommendation: Half-Way Facility Equipment Needed: No Assessment IMPRESSION: Pt [...] Raw Score (No Stairs) : 12 [facility] Score: Static standing (1 or more minutes) [...] of Care supervision is transferred to a [facility] Therapy Services Physical Therapist. Goals and/or treatment plan was established in collaboration with patient/family/other representatives. [1] No past medical history on file. [2] No past surgical history on file. Cosigned by Jocelyn Tian PT at 08/04/2024 1:18 PM EDT Associated attestation - Jocelyn Tian PT - 08/04/2024 1:18 PM EDT I certify that I was present during the entire session and guided the care given by the Student Physical Therapist. Cosign: Jocelyn Tian PT documented in this encounter [facility] 08-11-2024 Note Formatting of this n ote might be different from the original. Discharge med list transmitted to RETURN BACK TO [facility] via [facility] per TCC request. [facility] 08-11-2024 Note Formatting of this n ote might be different from the original. Discharge med list transmitted to RETURN BACK TO [facility] via [facility] per TCC request. [facility] 08-11-2024 Note Formatting of this n ote might be different from the original. Rounds this am DCP: DC today [facility] supervisor pairing and inspecting time scheduled for 430 Facility notified RN notified with time and P# for report LODGE OFFICER tasked to send DC packet and MAR to acility [facility] 08-11-2024 Note Formatting of this n ote might be different from the original. Rounds this am DCP: DC today [facility] supervisor pairing and inspecting time scheduled for 430 Facility notified RN notified with time and P# for report LODGE OFFICER tasked to send DC packet and MAR to acility [facility] 08-11-2024 Miscellaneous Notes Discharge med list transmitted to RETURN BACK TO [facility] via [facility] per TCC request. Rounds this am DCP: DC today [facility] supervisor pairing and inspecting time scheduled for 430 Facility notified RN notified with time and P# for report LODGE OFFICER tasked to send DC packet and MAR to acility Problem: Knowledge Deficit Goal: Patient/family/caregiver demonstrates understanding [...] Problem: Problem Interventions Goal: Promote nutritional intake 08/10/2024 014 by Sophy Olmos RN Outcome: [...] Sent updated notes to return back to [facility] per [facility] request. Await review and response regarding ability to accept. TCC notified. Care Management Progress Note -Pt remains on 2E. -Pulmonology following. -O2 now down to 5L. -Receiving IV ATB and Lasix. -Since pt is now down to 5L O2, discharge plan at this time is back to [facility] with restorative therapy. Facility made aware. -auto fleet maintenance manager to follow and assist as needed. [...] Problem Interventions Goal: Promote nutritional intake 08/08/2024 0625 by Sophy Olmos RN Outcome: [...] Management Progress Note Spoke with pt's daughter Emma over the phone to discuss DC planning. [...] DC if still needing high flow O2. Emma okay with [facility] following. Will continue to follow. Length of Stay (Days): 3 GMLOS: 4 Care Management Progress Note Called daughter Emma Richards @ [phone] to discuss DC planning. Informed her that therapy is recommending SNF at [facility]. Informed her that this TCC that her insurance is OON with therapy services at [facility] and that family would have to private pay. Daughter states she would like her to go back with restorative therapy at [facility]. Liaison at [facility] updated on daughter's plan to go back to [facility] with restorative therapy. Will continue to follow. [...] told this TCC that she is from [facility]. This TCC called daughter Emma Richards @ [phone] and she confirmed that that is where pt is from and plans for her to return at [facility]. Daughter states pt sees [facility] at [facility] and does not have her own PCP. Also pt gets meds supplied form [facility]CF. PT saw and is recommending SNF at [facility]. Informed daughter and she said that pt's insurance is OON with [facility] and they would have to private pay for SNF services. This TCC called [facility] liaison and she confirmed this as well. I will reach back out to daughter to discuss her options, pt may have to go back with [facility] PT/OT possibly? Will continue to follow for DC needs. Length of Stay (Days): 1 GMLOS: No GMLOS Documented Referral placed to return back to [facility] via [facility] per TCC request. Await review and response regarding ability to accept. TCC notified. documented in this encounter [facility] 08-11-2024 Note Hospitalist Discharg e Summary Krish Peralta : 1940 Admit date: 08/03/2024 Discharge date: 08/11/2024 Admitting Physician: Gee Givens MD Primary Care Physician: No primary [...] 9 10 LIVER PROFILE: Recent Labs 08/09/2431808/10/24 045 AST 11 17 ALT 6 9 BILITOT 0.3 0.3 ALKPHOS 78 78 PROT 7.3 6.7 PT/INR: No results for input(s): "PROTIME", "INR" in the last 72 hours. CARDIAC ENZYMES: No results for input(s): "TROPONINI" in the last 72 hours. Procalcitonin: No results found for: "PROCAL" COVID-19 PCR: No results for input(s): "COVID19" in the last 72 hours. Vitals: BP [...] Medications These med (more content not included)... [facility] 08-11-2024 Hospital course Narrative Hospitalist Discharge Summary Krish Peralta : 1940 Admit date: 08/03/2024 Discharge date: 08/11/2024 Admitting Physician: Gee Givens MD Primary Care Physician: No primary [...] 7.3 6.7 PT/INR: No results for input(s): "PROTIME", "INR" in the last 72 hours. CARDIAC ENZYMES: No results for input(s): "TROPONINI" in the last 72 hours. Procalcitonin: No results found for: "PROCAL" COVID-19 PCR: No results for input(s): "COVID19" in the last 72 hours. Vitals: BP [...] Your Medications These medications were sent to [facility] [address] [place] [id number] Hours: Friday to Friday 10 am to 6 pm predniSONE 10 MG tablet Information about where to get these medications is not yet available Ask your nurse or doctor about these medications ipratropium-albuterol 0.5-2.5 mg/3 mL nebulizer solution Recommended Follow-up: PCP and pulmonology outpatient in 1-2 weeks. @READMISSIONRISK@ Complexity of Follow up: [] Moderate Complexity: follow up within 7-14 calendar days (03676) [x] Severe Complexity: follow up within 7 calendar days (57106) Follow up Testing, Pending results or Referrals [...] frame. Signed: Helen Wan DO Division of Hospitalrust Medicine Inpatient Medical Services/[facility] 08/11/2024, 12:53 PM Total time Spent on Discharge: 32 minutes documented in this encounter [facility] 08-11-2024 Hospital Discharge instructions Nancy Barnes RN - 08/11/2024 12:51 PM EDT Images from the original note were not included. Continuity of Care Form Patient Name: Krish Peralta : 1940 Admit date: 08/03/2024 Discharge date: 08/11/2024 Code Status Order: DNR-CCA Advance Directives: Y Admitting Physician: Gee Givens MD PCP: No primary care provider on file. Discharging Nurse: Tereso Matta RN Discharging Hospital Unit/Room#: B2-255/B2-255 A Discharging Unit Emergency Contact: Extended Emergency Contact Information Primary Emergency Contact: EMMA RICHARDS Mobile Relation: Daughter Preferred language: Scottish Packaging Specialist needed? No Secondary Emergency Contact: LIONEL REYNOSO Mobile Relation: Son Preferred language: Scottish Packaging Specialist needed? 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 Med Delivery no Wound Care Documentation and Therapy: Wound/Incision 08/04/24 Pressure Injury Buttock Right;Medial (Active) Site Assessment Dry;[place];Intact 08/10/242041 Sanam-Wound Assessment Blanchable erythema 08/10/242041 Wound [...] select all that are sent with patient): glasses RN SIGNATURE: MANAGEMENT/SOCIAL WORK SECTION Inpatient Status Date: 08/03 [facility] [address] [place] [address] Dialysis Facility (if applicable) Name: Address: Dialysis Schedule: Phone: Fax: [employer]/Skidder Driver signature: ICIAN SECTION Name: Krish Peralta Prognosis: excellent Condition at Discharge: stable Rehab Potential (if transferring to Rehab): excellent Recommended Labs or Other Treatments After Discharge: none The individual is being admitted to a nursing facility directly from an [facility] or a unit of a [facility] that is not operated by or licensed by [facility] under section 5119.14 or 5160-3-15.1 5 The individual requires the level of services provided by a nursing facility for the condition for which he or she was treated in the hospital and, Physician Certification: I certify the above information and transfer of Krish Peralta is necessary for the continuing treatment of the diagnosis listed and that she requires detention facility for less than 30 days. Update Admission H&P: No change in H&P PHYSICIAN SIGNATURE: documented in this encounter [facility] 08-11-2024 Note [facility] ital Wound Care Progress Note Krish Peralta AGE: 83 y.o. GENDER: female : 1940 Subjective: HISTORY of PRESENT ILLNESS HPI Krish Peralta is a 83 y.o. female who presents for a wound care follow up. HPI: Ms. Peralta is a 83 y.o. female with past medical history significant for COPD. Patient presented to the emergency room from detention facility for shortness of breath. Patient admitted [...] 0.75 08/11/2024 PT/INR: No results found for: "PROTIME", "INR" Prealbumin: No results found for: PREALBUMIN Albumin:No [...] to follow Recommend to follow up at [facility] Outpatient wound care center after hospital discharge. Any questions or concerns please secure chat "ACH wound/ostomy". Thank you for the consult! I personally [...] for constipation. [] (more content not included)... [facility] 08-10-2024 Plan of care note Problem: Knowledge Deficit Goal: Patient/family/caregiver demonstrates understanding of disease process, treatment plan, medications, and discharge instructions Outcome: Progressing Problem: Potential for Compromised Skin Integrity Goal: Skin Integrity is Maintained or Improved Outcome: Progressing Problem: Urinary Incontinence Goal: Perineal skin integrity is maintained or improved Outcome: Progressing [facility] 08-10-2024 Note Hospitalist Progress Note 08/10/2024 [phone]: Please page me ([phone]) for patient care issues. [phone]: Please page [facility] night Hospitalist for any issues. Subjective: Admit [...] History: Medical History[1] LABS: CBC: Recent Labs 08/08/24 0313 08/09/24 0319 08/10/24 0453 WBC 7.3 9.3 9.2 RBC 4.73 4.87 4.64 HGB 13.6 14.1 13.3 HCT 41.9 43.0 41.1 MCV 88.6 88.3 88.6 RDW 13.7 13.6 13.8 PLT 124* 146 133* BMP: Recent Labs 08/08/2431208/09/2431808/10/24452 NA 139 138 137 K 4.7 4.5 4.2 CL 100 99 101 CO2 29 29 27 BUN 21 24* 24* CREATININE 0.80 0.83 0.80 GLUCOSE 118* 118* 112 CALCIUM 9.8 9.9 9.4 ANIONGAP 10 10 9 LIVER PROFILE: Recent Labs 08/08/2431208/09/2431808/10/24452 AST 16 11 17 ALT 9 6 9 BILITOT 0.3 0.3 0.3 ALKPHOS 78 78 78 PROT 7.5 7.3 6.7 PT/INR: No results for input(s): "PROTIME", "INR" in the last 72 hours. CARDIAC ENZYMES: No results for input(s): "TROPONINI" in the last 72 hours. Procalcitonin: No results found for: "PROCAL" COVID-19 PCR: No results for input(s): "COVID19" in the last 72 hours. Objective: Vitals: [...] Extended Emergency Contact Information Primary Emergency Contact: IRVINEMMA Vigil Mobile Relation: Daughter Preferred language: Scottish Packaging Specialist needed? No Secondary Emergency Contact: LIONEL REYNOSO Mobile Relation: Son Preferred language: [employer] Pack[employer] Specialist needed? No Helen Wan DO Division of Hospitalist Medicine Inpatient Medical Services/[facility] PAGER: Epic chat [1] No past medical [...] Topical, q8h traZODone, 50 mg, Oral, Nightly [facility] 08-10-2024 Note Formatting of this n [...] assistance with scheduling hospital follow-up with pulmonary. [facility] 08-10-2024 Note Formatting of this n [...] assistance with scheduling hospital follow-up with pulmonary. [facility] 08-10-2024 Note [facility] Wound Care Progress Note Krish Peralta AGE: 83 y.o. GENDER: female : 1940 Subjective: HISTORY of PRESENT ILLNESS HPI Krish Peralta is a 83 y.o. female who presents for a wound care follow up. HPI: Ms. Peralta is a 83 y.o. female with past medical history significant for COPD. Patient presented to the emergency room from detention [facility] for shortness of breath. Patient admitted with [...] 0.80 08/10/2024 PT/INR: No results found for: "PROTIME", "INR" Prealbumin: No results found for: PREALBUMIN Albumin:No [...] to follow Recommend to follow up at [facility] Outpatient wound care center after hospital discharge. Any questions or concerns please secure chat "ACH wound/ostomy". Thank you for the consult! I personally [...] times daily. es (more content not included)... [facility] 08-10-2024 Plan of care note Problem: Knowledge Deficit Goal: Patient/family/caregiver demonstrates understanding of disease process, treatment plan, medications, and discharge instructions 08/10/2024144 by Sophy Olmos RN Outcome: Progressing 08/10/2024139 by Sophy Olmos RN Outcome: Progressing Problem: Potential for Compromised Skin Integrity Goal: Skin Integrity is Maintained or Improved 08/10/2024144 by Sophy Olmos RN Outcome: Progressing 08/10/2024139 by Sophy Olmos RN Outcome: Progressing Goal: [...] 0140 by Sophy Olmos RN Outcome: Progressing [facility] 08-10-2024 Plan of care note Problem: Knowledge [...] Interventions Goal: Promote nutritional intake Outcome: Progressing T [facility] 08-09-2024 Plan of care note Problem: [...] Interventions Goal: Promote nutritional intake Outcome: Progressing T [facility] 08-09-2024 Note Hospitalist Progress Note 08/09/2024 [phone]: Please page me ([phone]) for patient care issues. [phone]: Please page [facility] Hospitalist for any issues. Subjective: Admit [...] the Lasix is helping. Adult diet Regular @[id number]@ 24HR INTAKE/OUTPUT: Intake/Output Summary (Last 24 hours) [...] 7.5 7.3 PT/INR: No results for input(s): "PROTIME", "INR" in the last 72 hours. CARDIAC ENZYMES: No results for input(s): "TROPONINI" in the last 72 hours. Procalcitonin: No results found for: "PROCAL" COVID-19 PCR: No results for input(s): "COVID19" in the last 72 hours. Objective: Vitals: [...] recommending SNF (she came from facility at [facility] and plan is to go back to [facility] with restorative therapy. However, she is still requiring a lot of O2 (on high flow NC) and pulmonary anticipating intermediate designer weaning and recommending LTACH -check daily labs Extended Emergency Contact Information Primary Emergency Contact: EMMA RICHARDS Mobile Relation: Daughter Preferred language: [employer] Specialist needed? No Secondary Emergency Contact: LIONEL REYNOSO Relation: Son Preferred language: [employer] Specialist needed? No Gee Givens MD Division of Hospitalist Medicine Inpatient Medical Services/[facility] PAGER: Michele clancy [1] No past medical history on file. [2] [3] amLODIPine, 5 mg, Oral, q24h cephalexin, 1,000 mg, Oral, q8h enoxaparin, 30 mg, SubCUTAneous, 2 times per day escitalopram, 10 mg, Oral, Nightly furosem (more content not included)... [facility] 08-09-2024 Note Formatting of this n ote might be different from the original. Sent updated notes to return back to [facility] via [facility] per [facility] request. Await review and response regarding ability to accept. TCC notified. T [facility] 08-09-2024 Note Formatting of this n ote might be different from the original. Sent updated notes to return back to [facility] via [facility] per TCC request. Await review and response regarding ability to accept. TCC notified. T [facility] 08-09-2024 Note Formatting of this n ote might be different from the original. Care Management Progress Note -Pt remains on 2E. -Pulmonology following. -O2 now down to 5L. -Receiving IV ATB and Lasix. -Since pt is now down to 5L O2, discharge plan at this time is back to [facility] with restorative therapy. Facility made aware. -auto fleet maintenance manager to follow and assist as needed. Length of Stay (Days): 6 GMLOS: 4 [facility] 08-09-2024 Note Formatting of this n ote might be different from the original. Care Management Progress Note -Pt remains on 2E. -Pulmonology following. -O2 now down to 5L. -Receiving IV ATB and Lasix. -Since pt is now down to 5L O2, discharge plan at this time is back to [facility] with restorative therapy. Facility made aware. -auto fleet maintenance manager to follow and assist as needed. Length of Stay (Days): 6 GMLOS: 4 [facility] 08-09-2024 Note Care Management Prog ress Note -Pt remains on 2E. -Pulmonology following. -O2 now down to 5L. -Receiving IV ATB and Lasix. -Since pt is now down to 5L O2, discharge plan at this time is back to [facility] with restorative therapy. Facility made aware. -auto fleet maintenance manager to follow and assist as needed. Length of Stay (Days): 6 GMLOS: 4 [facility] 08-09-2024 Plan of care note Problem: [...] by Sophy Olmos RN Outcome: Progressing 08/09/2024 0155 by Sophy Olmos RN Outcome: Progressing T [facility] 08-09-2024 Plan of care note Problem: [...] Interventions Goal: Promote nutritional intake Outcome: Progressing T [facility] 08-08-2024 Plan of care note Problem: Knowledge Deficit Goal: Patient/family/caregiver demonstrates understanding of disease process, treatment plan, medications, and discharge instructions Outcome: Progressing Problem: Potential for Compromised Skin Integrity Goal: Skin Integrity is Maintained or Improved Outcome: Progressing Problem: Urinary Incontinence Goal: Perineal skin integrity is maintained or improved Outcome: Progressing Problem: Problem Interventions Goal: Promote nutritional intake Outcome: Progressing T [facility] 08-08-2024 Note Hospitalist Progress Note 08/08/2024 [phone]: Please page me ([phone]) for patient care issues. [phone]: Please page [facility] night Hospitalist for any issues. Subjective: Admit [...] maybe a little sob. Adult diet Regular @[id number]@ 24HR INTAKE/OUTPUT: Intake/Output Summary (Last 24 hours) [...] 7.2 7.5 PT/INR: No results for input(s): "PROTIME", "INR" in the last 72 hours. CARDIAC ENZYMES: No results for input(s): "TROPONINI" in the last 72 hours. Procalcitonin: No results found for: "PROCAL" COVID-19 PCR: No results for input(s): "COVID19" in the last 72 hours. Objective: Vitals: [...] recommending SNF (she came from facility at [facility] and plan is to go back to [facility] with restorative therapy. However, she is still requiring a lot of O2 (on high flow NC) and pulmonary anticipating intermediate designer weaning and recommending LTACH -check daily labs Extended Emergency Contact Information Primary Emergency Contact: EMMA RICHARDS Mobile Relation: Daughter Preferred language: [employer] Specialist needed? No Secondary Emergency Contact: LIONEL REYNOSO Mobile Relation: Son Preferred language: [employer] Specialist needed? No Gee Givens MD Division of Hospitalist Medicine Inpatient Medical Services/[facility] PAGER: Epic chat [1] No past medical [...] 2 times per (more content not included)... [facility] 08-08-2024 Plan of care note Problem: [...] 0553 by Sophy Olmos RN Outcome: Progressing [facility] 08-08-2024 Plan of care note Problem: [...] Interventions Goal: Promote nutritional intake Outcome: Progressing [facility] 08-07-2024 Plan of care note Problem: Knowledge Deficit Goal: Patient/family/caregiver demonstrates understanding of disease process, treatment plan, medications, and discharge instructions Outcome: Progressing Problem: Potential for Compromised Skin Integrity Goal: Skin Integrity is Maintained or Improved Outcome: Progressing Problem: Urinary Incontinence Goal: Perineal skin integrity is maintained or improved Outcome: Progressing Problem: Problem Interventions Goal: Promote nutritional intake Outcome: Progressing [facility] 08-07-2024 Note Hospitalist Progress Note 08/07/2024 [phone]: Please page me ([phone]) for patient care issues. [phone]: Please page [facility] Hospitalist for any issues. Subjective: Admit Date: 08/03/2024 PCP: No primary care provider on file. Room#: [facility] A Interval History: Patient currently sitting up in chair again today on high flow NC O2. She admits to having a little sob this am. No chest pain. No abdominal pain. No nausea or vomiting and no fevers or chills. She does look overall comfortable but maybe a little sob. Adult diet Regular @[id number]@ 24HR INTAKE/OUTPUT: No intake or output data [...] 7.7 7.2 PT/INR: No results for input(s): "PROTIME", "INR" in the last 72 hours. CARDIAC ENZYMES: No results for input(s): "TROPONINI" in the last 72 hours. Procalcitonin: No results found for: "PROCAL" COVID-19 PCR: No results for input(s): "COVID19" in the last 72 hours. Objective: Vitals: [...] recommending SNF (she came from facility at [facility] and plan is to go back to [facility] with restorative therapy. However, she is still requiring a lot of O2 (on high flow NC) and pulmonary anticipating assisted weaning and recommending LTACH -check daily labs Extended Emergency Contact Information Primary Emergency Contact: EMMA RICHARDS Mobile Relation: Daughter Preferred language: [employer] Specialist needed? No Secondary Emergency Contact: LIONEL REYNOSO Mobile Relation: Son Preferred language: [employer] Specialist needed? No Gee Givens MD Division of Hospitalist Medicine Inpatient Medical Services/[facility] PAGER: blog[employer] chat [1] No past medical history on [...] Topical, q8h traZODone, 50 mg, Oral, Nightly [facility] 08-07-2024 Plan of care note Problem: [...] Interventions Goal: Promote nutritional intake Outcome: Progressing [facility] 08-06-2024 Note Formatting of this n ote might be different from the original. Care Management Progress Note Spoke with pt's daughter Emma over the phone to discuss DC planning. [...] DC if still needing high flow O2. Emma okay with [facility]. Will continue to follow. Length of Stay (Days): 3 GMLOS: 4 [facility] 08-06-2024 Note Formatting of this n ote might be different from the original. Care Management Progress Note Spoke with pt's daughter Emma over the phone to discuss DC planning. [...] DC if still needing high flow O2. Emma okpreet with [facility]. Will continue to follow. Length of Stay (Days): 3 GMLOS: 4 [facility] 08-06-2024 Note Care Management Prog ress Note Spoke with pt's daughter Emma over the phone to discuss DC planning. [...] DC if still needing high flow O2. Emma okay with [facility]. Will continue to follow. Length of Stay (Days): 3 GMLOS: 4 [facility] 08-06-2024 Note Hospitalist Progress Note 08/06/[id number]: Please page me ([phone]) for patient care issues. [phone]: Please page [facility] Hospitalist for any issues. Subjective: Admit Date: 08/03/2024 PCP: No primary care provider on file. Room#: -243/-243 B Interval History: No overnight issues. Patient [...] no fevers or chills Adult diet Regular @[id number]@ 24HR INTAKE/OUTPUT: No intake or output data in the 24 hours ending 08/06/24 0937 Past Medical History: Medical History[1] LABS: CBC: Recent Labs 08/03/24171108/04/24 1135 08/06/24 0233 WBC 11.7* -- 14.1* RBC 4.57 -- 4.49 HGB 13.2 13.7 13.0 HCT 41.5 -- 39.6 MCV 90.8 -- 88.2 RDW 14.1 -- 13.2 PLT 141 -- 160 BMP: Recent Labs 08/03/24 17108/06/24 0233 NA 136 135* K 4.0 3.9 CL 96* 95* CO2 29 30 BUN 13 27* CREATININE 0.79 0.84 GLUCOSE 90 123* CALCIUM 9.7 10.3* ANIONGAP 11 10 LIVER PROFILE: Recent Labs 08/03/24 1712 08/06/24 0233 AST 17 16 ALT <6 6 BILITOT 0.8 0.4 ALKPHOS 85 83 PROT 7.7 7.7 PT/INR: No results for input(s): "PROTIME", "INR" in the last 72 hours. CARDIAC ENZYMES: No results for input(s): "TROPONINI" in the last 72 hours. Procalcitonin: No results found for: "PROCAL" COVID-19 PCR: No results for input(s): "COVID19" in the last 72 hours. Objective: Vitals: [...] recommending SNF (she came from facility at [facility] and plan is [facility] with [facility]ative [facility]. However, she is still requiring a lot of O2 (on high flow NC) and pulmonary anticipating assisted weaning and recommending LTACH -check daily labs Extended Emergency Contact Information Primary Emergency Contact: EMMA RICHARDS Mobile Relation: Daughter Preferred language: [employer] Specialist needed? No Secondary Emergency Contact: LIONEL REYNOSO Mobile Relation: Son Preferred language: [employer] Specialist needed? No Gee Givens MD Division of Hospitalist Medicine Inpatient Medical Services/[facility] PAGER: Epic chat [1] No past medical [...] petrolatum, , Topical (more content not included)... [facility] 08-05-2024 Nurse Note Patient informed PO steroids were changed back to IV steroids. Patient continues to refuse steroids due to feeling restless and irritable. [facility] 08-05-2024 Nurse Note RN at bedside to administer PO Prednisone. Patient adamantly refusing to take steroids because they make her restless and irritable. Patient requesting more hydroxyzine because she already feels restless and irritable. RN informed patient of next available time for hydroxyzine to be administered. Dr. Givens notified and RN requested increase in hydroxyzine per patient request. T [facility] 08-05-2024 Note Formatting of this n ote might be different from the original. Care Management Progress Note Called thanh Richards @ [phone] to discuss DC planning. Informed her that therapy is recommending SNF [facility]. Informed her that this TCC that her insurance is OON with therapy services at [facility] and that family would have to private pay. Daughter states she would like her to go back with restorative therapy at [facility]. Liaison at [facility] updated on daughter's plan to go back to [facility] with restorative therapy. Will continue to follow. Length of Stay (Days): 2 GMLOS: 3.4 [facility] 08-05-2024 Note Formatting of this n ote might be different from the original. Care Management Progress Note Called thanh Richards @ [phone] to discuss DC planning. Informed her that therapy is recommending SNF at [facility]. Informed her that this TCC that her insurance is OON with therapy services at [facility] and that family would have to private pay. Daughter states she would like her to go back with restorative therapy at [facility]. Liaison at [facility] updated on daughter's plan to go back to [facility] with restorative therapy. Will continue to follow. Length of Stay (Days): 2 GMLOS: 3.4 [facility] 08-05-2024 Note Care Management Prog ress Note Called daughter Emma Richards @ [phone] to discuss DC planning. Informed her that therapy is recommending SNF at [facility]. Informed her that this TCC that her insurance is OON with therapy services at [facility] and that family would have to private pay. Daughter states she would like her to go back with restorative therapy at [facility]. Liaison at [facility] updated on daughter's plan to go back to [facility] with restorative therapy. Will continue to follow. Length of Stay (Days): 2 GMLOS: 3.4 [facility] 08-05-2024 Consult note Associated Order (s): [...] Unable to assess Fluid Accumulation: 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 Presented to [facility] via EMS from SNF with low [...] well outside of the hospital she replied: "sometimes yes, sometimes no... it doesn't matter". Spoke with RN post visit, "picked at oatmeal and a banana". RN also reported that she asked for milk with breakfast... Deferred NFPE. Estimated Daily Nutrient Needs: Energy Requirements Based On: Kcal/kg Weight Used for Energy Requirements: [place] Weight for Energy Calculation (kg): 45 kg Total Energy Requirements (kcals/day): 4073-2237 (25-30 kcal/kg IBW) Weight Used for Protein Requirements: [place] Weight in Kg Used for Protein Requirements: [...] lb) (11/11/23) % Weight Change (Calculated): 11.7 [place] Body Weight (lbs) (Calculated): 100 lbs [place] Body Weight (Kg) (Calculated): 45 kg % [place] Body Weight (Calculated): 220 % BMI (kg/m2) [...] current diet Zuleyka Saul RDN, LDN, Contact: *[phone] [facility] 08-05-2024 Consult note Associated Order (s): [...] Unable to assess Fluid Accumulation: 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 Presented to [facility] via EMS from [facility] with low pulse ox readings and SOB. [...] well outside of the hospital she replied: "sometimes yes, sometimes no... it doesn't matter". Spoke with RN post visit, "picked at oatmeal and a banana". RN also reported that she asked for milk with breakfast... Deferred NFPE. Estimated Daily Nutrient Needs: Energy Requirements Based On: Kcal/kg Weight Used for Energy Requirements: [place] Weight for Energy Calculation (kg): 45 kg Total Energy Requirements (kcals/day): 5176-8329 (25-30 kcal/kg IBW) Weight Used for Protein Requirements: [place] Weight in Kg Used for Protein Requirements: [...] lb) (11/11/23) % Weight Change (Calculated): 11.7 [place] Body Weight (lbs) (Calculated): 100 lbs [place] Body Weight (Kg) (Calculated): 45 kg % [place] Body Weight (Calculated): 220 % BMI (kg/m2) [...] current diet Zuleyka Saul RDN, LDN, Contact: *[phone] Associated Order(s): INPATIENT CONSULT TO WOUND CARE PROVIDERS Images from the original note were not included. [facility] CONSULT Note Krish Peralta AGE: 83 y.o. GENDER: female : 1940 Subjective: HISTORY of PRESENT ILLNESS HPI Krish Peralta is a 83 y.o. female who presents for a wound consult. HPI: Ms. Peralta is a 83 y.o. female with past medical history significant for COPD. Patient presented to the emergency room from detention facility for shortness of breath. Patient admitted [...] 0.79 08/03/2024 PT/INR: No results found for: "PROTIME", "INR" Prealbumin: No results found for: PREALBUMIN Albumin:No components found for: LABALBU Sed Rate:No results found for: SEDRATE Micro: No components found for: BC Assessment/Plan: Nursing staff to perform dressing change: Right buttock: Pressure Injury (DTI) - Clean with soap and water, apply ET mix then leave CLAY PLANT TREATER TID and PRN - Reposition q2hrs - Incontinent checks q2hrs - Waffle cushion while in chair Nutritional support Wound Care to follow Recommend to follow up at [facility] Outpatient wound care center after hospital discharge. Any questions or concerns please secure chat "ACH wound/ostomy". Thank you for the consult! I personally [...] from the original note were not included. [facility] Pulmonary Medicine [address] [place] [id number] Patient - Krish Peralta - 1940 Date of Admission - 08/03/2024 4:21 PM Date of Evaluation - 08/04/2024 Room - B2-243/[facility] B Hospital Day - 1 Consulting - Gee Givens MD PCP - No primary care provider on file. Reason for Consult COPD exacerbation History of Present Illness Krish Peralta is a 83 y.o. female admitted for shortness of breath, hypoxemia. Patient has a past medical history of: - possible asthma - trivial smoking history - dementia - hypothyroidism - hypertension Patient is new to the [facility] pulmonary service, patient thinks she may have seen a hand bulldozer several years ago. She was admitted to [facility] 08/03/24 from SNF for increasing shortness [...] min Stress: No Stress Concern Present (08/04/2024) [employer] - Occupational Stress Questionnaire Feeling of Stress : Only a little Social Connections: Unknown (08/04/2024) Social Connection and Isolation Panel [NHANES] Frequency of Communication with Friends and Family: Never Frequency of Social Gatherings with Friends and Family: Never Attends Voodoo Services: Never Active Member of Clubs or [...] 17 INR PTT No results found for: "PTT" Cultures N/A Pulmonary Function Tests (PFT's) No [...] Neri MD Pulmonary & Critical Care Medicine [facility] [1] Patient Active Problem List [...] Wound Dressing Adhesive documented in this encounter [facility] 08-05-2024 Note Hospitalist Progress Note 08/05/2024 [phone]: Please page me ([phone]) for patient care issues. [phone]: Please page [facility] night Hospitalist for any issues. Subjective: Admit [...] No nausea or vomiting. Adult diet Regular @[id number]@ 24HR INTAKE/OUTPUT: Intake/Output Summary (Last 24 hours) [...] PROT 7.7 PT/INR: No results for input(s): "PROTIME", "INR" in the last 72 hours. CARDIAC ENZYMES: No results for input(s): "TROPONINI" in the last 72 hours. Procalcitonin: No results found for: "PROCAL" COVID-19 PCR: No results for input(s): "COVID19" in the last 72 hours. Objective: Vitals: [...] Extended Emergency Contact Information Primary Emergency Contact: EMMA RICHARDS Mobile Relation: Daughter Preferred language: [employer] Specialist needed? No Secondary Emergency Contact: LIONEL REYNOSO Mobile Relation: Son Preferred language: [employer] Specialist needed? No Gee Givens MD Division of Hospitalist Medicine Inpatient Medical Services/[facility] PAGER: Epic chat [1] No past medical [...] per day traZODone, 50 mg, Oral, Nightly [facility] 08-05-2024 Plan of care note Problem: Knowledge Deficit Goal: Patient/family/caregiver demonstrates understanding of disease process, treatment plan, medications, and discharge instructions Outcome: Progressing Problem: Potential for Compromised Skin Integrity Goal: Skin Integrity is Maintained or Improved Outcome: Progressing Goal: Nutritional status is improving Outcome: Progressing Problem: Urinary Incontinence Goal: Perineal skin integrity is maintained or improved Outcome: Progressing [facility] 08-05-2024 Consult note Associated Order (s): INPATIENT CONSULT TO WOUND CARE PROVIDERS Images from the original note were not included. [facility] CONSULT Note Krish Peralta AGE: 83 y.o. GENDER: female : 1940 Subjective: HISTORY of PRESENT ILLNESS HPI Krish Peralta is a 83 y.o. female who presents for a wound consult. HPI: Ms. Peralta is a 83 y.o. female with past medical history significant for COPD. Patient presented to the emergency room from detention facility for shortness of breath. Patient admitted [...] 0.79 08/03/2024 PT/INR: No results found for: "PROTIME", "INR" Prealbumin: No results found for: PREALBUMIN Albumin:No [...] to follow Recommend to follow up at [facility] Outpatient wound care center after hospital discharge. Any questions or concerns please secure chat "ACH wound/ostomy". Thank you for the consult! I personally [...] Malik DO at 08/09/2024 5:01 PM EDT [facility] Work Phone: 08-05-2024 Plan of care note Problem: [...] medications, and discharge instructions Outcome: Not Progressing [facility] 08-04-2024 Note Formatting of this n ote might be different from the original. Care Management Progress Note Chart reviewed. Pt admitted to for c/o SOB and COPD exacerbation. Pt on high flow O2. Pulmonary consulted and following. Pt continues on IV antibiotics and IV steroids. Met with pt earlier at bedside and she told this TCC that she is from [facility]. This TCC called thanh Richards @ [phone] and she confirmed that that is where pt is from and plans for her to return at [facility]. Daughter states pt sees [facility] at [facility] and does not have her own PCP. Also pt gets meds supplied form [facility]. PT saw and is recommending SNF at [facility]. Informed daughter and she said that pt's insurance is OON with [facility] and they would have to private pay for SNF services. This TCC called [facility] liaison and she confirmed this as well. I will reach back out to daughter to discuss her options, pt may have to go back with [facility] PT/OT possibly? Will continue to follow for DC needs. Length of Stay (Days): 1 GMLOS: No GMLOS Documented [facility] 08-04-2024 Note Formatting of this n ote might be different from the original. Care Management Progress Note Chart reviewed. Pt admitted to for c/o SOB and COPD exacerbation. Pt on high flow O2. Pulmonary consulted and following. Pt continues on IV antibiotics and IV steroids. Met with pt earlier at bedside and she told this TCC that she is from [facility]. This TCC called thanh Richards @ [phone] and she confirmed that that is where pt is from and plans for her to return at [facility]. Daughter states pt sees [facility] at [facility] and does not have her own PCP. Also pt gets meds supplied form [facility]. PT saw and is recommending SNF at [facility]. Informed daughter and she said that pt's insurance is OON with [facility] and they would have to private pay for SNF services. This TCC called [facility] liaison and she confirmed this as well. I will reach back out to daughter to discuss her options, pt may have to go back with [facility] PT/OT possibly? Will continue to follow for DC needs. Length of Stay (Days): 1 GMLOS: No GMLOS Documented [facility] 08-04-2024 Note Care Management Prog ress Note Chart reviewed. Pt admitted to for c/o SOB and COPD exacerbation. Pt on high flow O2. Pulmonary consulted and following. Pt continues on IV antibiotics and IV steroids. Met with pt earlier at bedside and she told this TCC that she is from [facility]. This TCC called daughter Emma Richards @ [phone] and she confirmed that that is where pt is from and plans for her to return at [facility]. Daughter states pt sees [facility] at [facility] and does not have her own PCP. Also pt gets meds supplied form [facility]. PT saw and is recommending SNF at [facility]. Informed daughter and she said that pt's insurance is OON with [facility] and they would have to private pay for SNF services. This TCC called [facility] liaison and she confirmed this as well. I will reach back out to daughter to discuss her options, pt may have to go back with [facility] PT/OT possibly? Will continue to follow for DC needs. Length of Stay (Days): 1 GMLOS: No GMLOS Documented [facility] 08-04-2024 Nurse Note Images from the original note were not included. Wound Care consulted for Pressure Injury Prevention. Pt's Emile score= 15 on 08/04 Pt's pressure points assessed. Pt sitting in chair upon arrival for visit. Pt's Heels, Back, Elbows, Occiput and ears all intact. Pt stood with max assist from ply bander for posterior assessment. Blanchable erythema/purple tissues noted to bilateral buttocks. DTI noted to right buttock, linear area of nonblanchable purple tissues, measures 1cm x 0.3cm, with surrounding blanchable erythema and purple tissues. See photo below. Wound TAX ACCOUNTING MANAGER group consulted. Brief in place. Pt incontinent [...] Verbalized understanding. Prevention Measures in place, including: [place] sheet with pillows/wedges, Heels elevated off bed on pillows, Zinc/Moisture Barrier ointment (applied), Waffle chair cushion (ordered for pt). Skin Care precaution order set in place. Dietitian consult order placed d/t wound. PT consult in place. D/W nursing staff. Right buttock Will continue to follow pt. Please secure chat for any questions or concerns. Mago Cavazos RN [facility] 08-04-2024 Note Formatting of this n ote might be different from the original. Referral placed to return back to [facility] via [facility] per TCC request. Await review and response regarding ability to accept. TCC notified. [facility] 08-04-2024 Note Formatting of this n ote might be different from the original. Referral placed to return back to [facility] via [facility] per TCC request. Await review and response regarding ability to accept. TCC notified. [facility] 08-04-2024 Note Referral placed to norberto garvin back to [facility] via [facility] per TCC request. Await review and response regarding ability to accept. TCC notified. [facility] 08-04-2024 Note Hospitalist Progress Note 08/04/2024 [id number]: Please page me ([phone]) for patient care issues. [phone]: Please page [facility] night Hospitalist for any issues. Subjective: Admit [...] No fevers or chills. Adult diet Regular @[id number]@ 24HR INTAKE/OUTPUT: Intake/Output Summary (Last 24 hours) [...] ANIONGAP 11 LIVER PROFILE: Recent Labs 08/03/24 171 AST 17 ALT <6 BILITOT 0.8 ALKPHOS 85 PROT 7.7 PT/INR: No results for input(s): "PROTIME", "INR" in the last 72 hours. CARDIAC ENZYMES: No results for input(s): "TROPONINI" in the last 72 hours. Procalcitonin: No results found for: "PROCAL" COVID-19 PCR: No results for input(s): "COVID19" in the last 72 hours. Objective: Vitals: [...] Extended Emergency Contact Information Primary Emergency Contact: EMMA RICHARDS Mobile Relation: Daughter Preferred language: Scottish Packaging Specialist needed? No Secondary Emergency Contact: LIONEL REYNOSO Mobile Relation: Son Preferred language: Scottish Packaging Specialist needed? No Gee Givens MD Division of Hospitalist Medicine Inpatient Medical Services/[facility] PAGER: Epic chat [1] No past medical history on file. [2] [3] azithromycin, 500 mg, IntraVENous, q24h cefTRIAXone, 1,000 mg, IntraVENous, q24h enoxaparin, 30 mg, SubCUTAneous, 2 times per day ipratropium-albuterol, 1 ampule, Nebulization, q4h WA sodium chloride 0.9%, 10 mL, IntraVENous, 2 times per day [facility] 08-04-2024 Consult note Associated Order (s): IP CONSULT TO PULMONOLOGY Images from the original note were not included. [facility] Pulmonary Medicine [address] [place] [id number] Patient - Krish Peralta - 1940 Date of Admission - 08/03/2024 4:21 PM Date of Evaluation - 08/04/2024 Room - -[facility] B Hospital Day - 1 Consulting - Gee Givens MD PCP - No primary care provider on file. Reason for Consult COPD exacerbation History of Present Illness Krish Peralta is a 83 y.o. female admitted for shortness of breath, hypoxemia. Patient has a past medical history of: - possible asthma - trivial smoking history - dementia - hypothyroidism - hypertension Patient is new to the [facility] pulmonary service, patient thinks she may have seen a hand bulldozer several years ago. She was admitted to [facility] 08/03/24 from SNF for increasing shortness [...] min Stress: No Stress Concern Present (08/04/2024) [facility] [employer] - Occupational Stress Questionnaire Feeling of Stress : Only a little Social Connections: Unknown (08/04/2024) Social Connection and Isolation Panel [NHANES] Frequency of Communication with Friends and Family: Never Frequency of Social Gatherings with Friends and Family: Never Attends Voodoo Services: Never Active Member of Clubs or [...] 17 INR PTT No results found for: "PTT" Cultures N/A Pulmonary Function Tests (PFT's) No [...] Neri MD Pulmonary & Critical Care Medicine [facility] [1] Patient Active Problem List [...] Duloxetine Unknown Lorazepam Oxycodone Wound Dressing Adhesive T [facility] 08-03-2024 History and physical note Attending History and Physical Admit Date: 08/03/2024 PCP: No primary care provider on file. CHIEF COMPLAINT: Shortness of breath Reason for Admission: COPD exacerbation History Obtained From: ER provider HISTORY OF PRESENT ILLNESS: Krish is a 83 y.o. female with past medical history significant for COPD. Patient presented to the emergency room from detention facility for shortness of breath. Patient has [...] Insecurity: No Food Insecurity (10/22/2023) Received from [facility] Hunger Vital Sign Worried About Running Out of Food in the Last Year: Never true Ran Out of Food in the Last Year: Never true Transportation Needs: No Transportation Needs (10/22/2023) Received from [facility] PRAPARE - Transportation Lack of Transportation (Medical): No Lack of Transportation (Non-Medical): No Physical Activity: Not on file Stress: Not on file Social Connections: Not on file Intimate Partner Violence: Not on file Housing Stability: Low Risk (10/22/2023) Received from [facility] Housing Stability Vital Sign Unable to Pay [...] PROT 7.7 PT/INR: No results for input(s): "PROTIME", "INR" in the last 72 hours. CARDIAC ENZYMES: No results for input(s): "TROPONINI" in the last 72 hours. Procalcitonin: No results found for: "PROCAL" Urine Culture: No results found for this or any previous visit. COVID-19 PCR: No results for input(s): "COVID19" in the last 72 hours. I reviewed: [...] Will hold off initiating the antibiotics Consult hand bulldozer - am labs, replace lytes prn - [...] Extended Emergency Contact Information Primary Emergency Contact: RALPHEMMA Mobile Relation: Daughter Preferred language: Scottish Packaging Specialist needed? No Secondary Emergency Contact: LIONEL REYNOSO Mobile Relation: Son Preferred language: [employer]aging Specialist needed? 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 The patient and/or family/surrogate voluntarily agreed to participate in ACP services. Patient s cognitive capacity: Alert, Orientedx3 Code Status: [x_] [FULL CODE - Continue all advanced life support: CPR,intubation,invasive procedures] [_] [DNR-CCA - DO NOT do CPR, intubation] [_] [DNR-SALES SERVICE PROFESSIONAL - Comfort care only] [_] DNR form [...] Fransisco Pete MD Division of Hospitalist Medicine [facility] [1] No past medical history on file. [2] No past surgical history on file. [3] No family history on file. [4] Current Facility-Administered Medications: ipratropium-albuterol (Duo-Neb) 0.5-2.5 mg/3 mL nebulizer solution - Pyxis ADS Override Pull, , , , No current outpatient medications on file. [5] Allergies Allergen Reactions Aspartame Codeine Lorazepam Oxycodone Wound Dressing Adhesive [employer] Work Phone: 08-03-2024 Note Attending History an d Physical Admit Date: 08/03/2024 PCP: No primary care provider on file. CHIEF COMPLAINT: Shortness of breath Reason for Admission: COPD exacerbation History Obtained From: ER provider HISTORY OF PRESENT ILLNESS: Krish is a 83 y.o. female with past medical history significant for COPD. Patient presented to the emergency room from detention facility for shortness of breath. Patient has [...] Insecurity: No Food Insecurity (10/22/2023) Received from [facility] Hunger Vital Sign Worried About Running Out of Food in the Last Year: Never true Ran Out of Food in the Last Year: Never true Transportation Needs: No Transportation Needs (10/22/2023) Received from [facility] PRAPARE - Transportation Lack of Transportation (Medical): No Lack of Transportation (Non-Medical): No Physical Activity: Not on file Stress: Not on file Social Connections: Not on file Intimate Partner Violence: Not on file Housing Stability: Low Risk (10/22/2023) Received from [facility] Housing Stability Vital Sign Unable to Pay [...] 90.8 RDW 14. (more content not included)... [facility] 08-03-2024 History and physical note Attending History and Physical Admit Date: 08/03/2024 PCP: No primary care provider on file. CHIEF COMPLAINT: Shortness of breath Reason for Admission: COPD exacerbation History Obtained From: ER provider HISTORY OF PRESENT ILLNESS: Krish is a 83 y.o. female with past medical history significant for COPD. Patient presented to the emergency room from detention facility for shortness of breath. Patient has [...] Insecurity: No Food Insecurity (10/22/2023) Received from [facility] Hunger Vital Sign Worried About Running Out of Food in the Last Year: Never true Ran Out of Food in the Last Year: Never true Transportation Needs: No Transportation Needs (10/22/2023) Received from [facility] PRAPARE - Transportation Lack of Transportation (Medical): No Lack of Transportation (Non-Medical): No Physical Activity: Not on file Stress: Not on file Social Connections: Not on file Intimate Partner Violence: Not on file Housing Stability: Low Risk (10/22/2023) Received from [facility] Housing Stability Vital Sign Unable to Pay [...] NO edema DATA: CBC: Recent Labs 08/03/24 171 WBC 11.7* RBC 4.57 HGB 13.2 HCT 41.5 MCV 90.8 RDW 14.1 PLT 141 BMP: Recent Labs 08/03/24 171 NA 136 K 4.0 CL 96* CO2 29 BUN 13 CREATININE 0.79 GLUCOSE 90 CALCIUM 9.7 ANIONGAP 11 LIVER PROFILE: Recent Labs 08/03/24 171 AST 17 ALT <6 BILITOT 0.8 ALKPHOS 85 PROT 7.7 PT/INR: No results for input(s): "PROTIME", "INR" in the last 72 hours. CARDIAC ENZYMES: No results for input(s): "TROPONINI" in the last 72 hours. Procalcitonin: No results found for: "PROCAL" Urine Culture: No results found for this or any previous visit. COVID-19 PCR: No results for input(s): "COVID19" in the last 72 hours. I reviewed: [...] Will hold off initiating the antibiotics Consult hand bulldozer - am labs, replace lytes prn - [...] Extended Emergency Contact Information Primary Emergency Contact: EMMA RICHARDS Mobile Relation: Daughter Preferred language: Scottish Packaging Specialist needed? No Secondary Emergency Contact: LIONEL REYNOSO Mobile Relation: Son Preferred language: Scottish Packaging Specialist needed? No ADVANCED CARE PLANNING Krish Sujata Peralta : 1940 Primary Care Physician: No primary care provider on file. The patient and/or family/surrogate voluntarily agreed to participate in ACP services. Patient s cognitive capacity: Alert, Orientedx3 Code Status: [x_] [FULL CODE - Continue all advanced life support: CPR,intubation,invasive procedures] [_] [DNR-CCA - DO NOT do CPR, intubation] [_] [DNR-SALES SERVICE PROFESSIONAL - Comfort care only] [_] DNR form [...] Fransisco Pete MD Division of Hospitalist Medicine [facility] [1] No past medical history on file. [2] No past surgical history on file. [3] No family history on file. [4] Current Facility-Administered Medications: ipratropium-albuterol (Duo-Neb) 0.5-2.5 mg/3 mL nebulizer solution - Pyxis ADS Override Pull, , , , No current outpatient medications on file. [5] Allergies Allergen Reactions Aspartame Codeine Lorazepam Oxycodone Wound Dressing Adhesive documented in this encounter [facility] 08-03-2024 Emergency department Note Patient was placed on a Venti mask at 50% FiO2. [facility] 08-03-2024 Emergency department Note Patient was [...] is aware. EMERGENCY DEPARTMENT ENCOUNTER Pt Name: Krish Peralta Birthdate 1940 Date of evaluation: 08/03/2024 ED Provider: Stacia Juarez DO CHIEF COMPLAINT Chief Complaint Patient presents with Shortness of Breath HISTORY OF PRESENT ILLNESS (Location/Symptom, Timing/Onset, Context/Setting, Quality, Duration, Modifying Factors, Severity) Note limiting factors. I wore appropriate PPE for the entirety of this encounter. HPI Krish Peralta is a 83 y.o. who presents [...] sepsis, or septic shock (If yes use ".sepsiscoremeasure"): FINAL IMPRESSION 1. COPD exacerbation (HCC) 2. [...] Insecurity: No Food Insecurity (10/22/2023) Received from [facility] Hunger Vital Sign Worried About Running Out of Food in the Last Year: Never true Ran Out of Food in the Last Year: Never true Transportation Needs: No Transportation Needs (10/22/2023) Received from [facility] PRAPARE - Transportation Lack of Transportation (Medical): No Lack of Transportation (Non-Medical): No Housing Stability: Low Risk (10/22/2023) Received from [facility] Housing Stability Vital Sign Unable to Pay [...] the EMS BiPap. documented in this encounter [facility] 08-03-2024 Emergency department Note Upon arrival [...] be left alone. ED Attending is aware. [facility] 08-03-2024 Note Upon arrival the pat ient was very agitated and was refusing care. [...] be left alone. ED Attending is aware. [facility] 08-03-2024 Emergency department Triage note Patient arrives from SNF via EMS due to SOB and low pulse oximetry readings. Ems reports the capnography was in the 50's for CO2 level. The SNF was trying all day to get the patient to agree to come to the ED for evaluation and she refused. Patient finally agrees but refused the EMS BiPap. [facility] 08-03-2024 Physician Emergency department Note EMERGENCY DEPARTMENT ENCOUNTER Pt Name: Krish Peralta Birthdate 1940 Date of evaluation: 08/03/2024 ED Provider: Stacia Juarez DO CHIEF COMPLAINT Chief Complaint Patient presents with Shortness of Breath HISTORY OF PRESENT ILLNESS (Location/Symptom, Timing/Onset, Context/Setting, Quality, Duration, Modifying Factors, Severity) Note limiting factors. I wore appropriate PPE for the entirety of this encounter. HPI Krish Peralta is a 83 y.o. who presents [...] 9 mL (9 mL Nebulization Given 08/03/24 171) magnesium sulfate IVPB premix 2,000 mg (0 [...] sepsis, or septic shock (If yes use ".sepsiscoremeasure"): FINAL IMPRESSION 1. COPD exacerbation (HCC) 2. [...] Insecurity: No Food Insecurity (10/22/2023) Received from [facility] Hunger Vital Sign Worried About Running Out of Food in the Last Year: Never true Ran Out of Food in the Last Year: Never true Transportation Needs: No Transportation Needs (10/22/2023) Received from [facility] PRAPARE - Transportation Lack of Transportation (Medical): No Lack of Transportation (Non-Medical): No Housing Stability: Low Risk (10/22/2023) Received from [facility] Housing Stability Vital Sign Unable to Pay for Housing in the Last Year: No Number of Places Lived in the Last Year: 1 Unstable Housing in the Last Year: No Stacia Juarez DO [id number]/03/[id number] [facility] 04-19-2024 Note [facility] Medical Records Department [address] [place] [address] Discharge Summary 04/19/24 1556 MR#: [id number] Acct: [id number] Name: KRISH PERALTA Rep #: [id number] : 1940 83 From: Trip Hamilton DO PCP: Dr. Kaleb Mace Sr., Status:DIS IN [facility] Date of Admission: 04/17/24 Date of [...] was seen in the emergency room at [facility] after being transferred from a senior care for worsening shortness of breath with cough. [...] (PCR) - F (more content not included)... [facility] 11-11-2023 Note HNO ID: [id number] Author: KALLI DE ANDA APRN.TECHNICIAN PREVENTATIVE MEDICINE Service: ? Author Type: Nurse Practitioner Type: Progress Notes Filed: 11/11/2023 11:29 Note Text: Connected Care Unit Discharge Summary SNF Connected Care Program [place] [id number] [facility], [address]) [place] [address] - CONNECTED CARE DISCHARGE SUMMARY Service Date: 11/11/2023 Admission Date: 10/24/2023 Discharge Date: 11/11/2023 Facility: [facility] Level of Care: Skilled SNF Attending: Dr. [...] a recliner She will be discharged to [facility] living. She is safe to transfer to [...] Final GFR- 96 mL/min/1.73 m2 >60 Final LHR-ZAV-CQTDTGW 80 mL/min/1.73 m2 >60 Final Stage of [...] esomeprazole magnesium (NEXI (more content not included)... [facility] 11-11-2023 History of Present illness Narrative Images from the original note were not included. Connected Care Unit Discharge Summary SNF Connected Care Program [address], [address] ([address]) [place] [address] CONNECTED CARE DISCHARGE SUMMARY Service Date: 11/11/2023 Admission Date: 10/24/2023 Discharge Date: 11/11/2023 Facility: [facility] Level of Care: Skilled SNF Attending: Dr. [...] a recliner She will be discharged to [facility] living. She is safe to transfer to [...] Final GFR- 96 mL/min/1.73 m2 >60 Final GFZ-MIY-OWLSWZF 80 mL/min/1.73 m2 >60 Final Stage of [...] Take 20 mg by mouth once daily. Vlptr-7-FKX-EPA-Fish Oil (FISH OIL) 1,000 mg (120 mg-180 [...] of breath. Functional Status: Modified independent + [facility] Scheduled Future Appointments: No future appointments. Prior to discharge, staff to schedule follow up appointment for patient to see PCP within 7-10 days of discharge. I spent 36 minutes in the visit, with more than 50% of the total ulsa-wb-scda time of the visit in counseling / coordination of care. Kalli De Anda APRN.CASSIE documented in this encounter [facility] 11-05-2023 Note HNO ID: [id number] Author: KALLI DE ANDA APRN.CNP Service: ? Author Type: Nurse Practitioner Type: Progress Notes Filed: 11/05/2023 14:28 Note Text: Connected Care Unit Progress Note Patient Name: Krish Peralta Patient Facility: [facility] Admit Date 10/24/2023 Level of Care: Skilled [...] not collected. Patient is being discharged to [facility] in stable condition and agrees [...] recent labs, family (more content not included)... [facility] 11-05-2023 History of Present illness Narrative Connected Care Unit Progress Note Patient Name: Krish Peralta Patient Facility: [facility] Admit Date 10/24/2023 Level of Care: Skilled [...] frequency Urine culture w/ mixed microbiota. Continue Simbamario albertodom De Anda HPI: (Per hospital discharge) HOSPITAL [...] not collected. Patient is being discharged to [facility] in stable condition and agrees [...] Final GFR- 96 mL/min/1.73 m2 >60 Final ZNH-QRN-UDRKDUP 80 mL/min/1.73 m2 >60 Final Stage of [...] 11/05/2023 This note was partially generated using [employer] voice recognition system, and there may be some incorrect words, spellings, and punctuation that were not noted in checking the note before saving. Electronically signed by Kalli De Anda APRN.CASSIE documented in this encounter [facility] 11-03-2023 Note HNO ID: [id number] Author: KALLI DE ANDA APRN.CASSIE Service: ? Author Type: Nurse Practitioner Type: Progress Notes Filed: 11/03/2023 16:21 Note Text: Connected Care Unit Progress Note Patient Name: Krish Peralta Patient Facility: [facility] Admit Date 10/24/2023 Level of Care: Skilled [...] - ICD9: 496, ICD10: J44.9 Continue albuterol susansalex norris Continues to sleep upright in recliner [...] not collected. Patient is being discharged to [facility] in stable condition and agrees [...] Hypothyroidism- Continue home synthroid 137mcg. 11/03/2023 update Krish sitting up in her chair, she is [...] current medications, most (more content not included)... [facility] 11-03-2023 History of Present illness Narrative Connected Care Unit Progress Note Patient Name: Krish Peralta Patient Facility: [facility] Admit Date 10/24/2023 Level of Care: Skilled [...] dysuria UA C&S completed culture is pending Latosha's today pneumoniae [...] not collected. Patient is being discharged to [facility] in stable condition and agrees [...] Hypothyroidism- Continue home synthroid 137mcg. 11/03/2023 update Krish sitting up in her chair, she is [...] Final GFR- 96 mL/min/1.73 m2 >60 Final UNK-LZX-QFWYVZT 80 mL/min/1.73 m2 >60 Final Stage of [...] 11/03/2023 This note was partially generated using [employer] voice recognition system, and there may be some incorrect words, spellings, and punctuation that were not noted in checking the note before saving. Electronically signed by Kalli De Anda APRN.TECHNICIAN PREVENTATIVE MEDICINE documented in this encounter [facility] 10-29-2023 Note HNO ID: [id number] Author: KALLI DE ANDA APRN.CASSIE Service: ? Author Type: Nurse Practitioner Type: Progress Notes Filed: 10/29/2023 15:41 Note Text: Connected Care Unit Progress Note Patient Name: Krish Peralta Patient Facility: [facility] Admit Date 10/24/2023 Level of Care: Skilled [...] - ICD9: 496, ICD10: J44.9 Continue albuterol susansalex jr Continues to sleep upright in recliner [...] not collected. Patient is being discharged to [facility] in stable condition and agrees [...] Hypothyroidism- Continue home synthroid 137mcg. 10/29/2023 update Krish is sitting up in her chair, her [...] concerns. Staff has no concerns. Labs reviewed Krish did request to have code status changed to DNR-CCA, DNI . Family and Krish were both given a copy of form. [...] facility record. Angel (more content not included)... [facility] 10-29-2023 History of Present illness Narrative Connected Care Unit Progress Note Patient Name: Krish Peralta Patient Facility: [facility] Admit Date 10/24/2023 Level of Care: Skilled [...] not collected. Patient is being discharged to [facility] in stable condition and agrees [...] Hypothyroidism- Continue home synthroid 137mcg. 10/29/2023 update Krish is sitting up in her chair, her [...] concerns. Staff has no concerns. Labs reviewed Krish did request to have code status changed to DNR-CCA, DNI . Family and Krish were both given a copy of form. [...] Final GFR- 83 mL/min/1.73 m2 >60 Final ILK-TXM-STLCWAX 68 mL/min/1.73 m2 >60 Final Stage of [...] 10/29/2023 This note was partially generated using [employer] voice recognition system, and there may be some incorrect words, spellings, and punctuation that were not noted in checking the note before saving. Electronically signed by Kalli De Anda APRN.TECHNICIAN PREVENTATIVE MEDICINE documented in this encounter [facility] 10-27-2023 Note HNO ID: [id number] Author: KALLI DE ANDA APRN.CNP Service: ? Author Type: Nurse Practitioner Type: Progress Notes Filed: 10/27/2023 12:37 Note Text: Connected Care Unit Progress Note Patient Name: Krish Peralta Patient Facility: [facility] Admit Date 10/24/2023 Level of Care: Skilled [...] - ICD9: 496, ICD10: J44.9 Continue albuterol susanjessica norris Continues to sleep upright in recliner Remains on room air 6. Debility - ICD9: 799.3, ICD10: R53.81 Certify therapies Maintain high falls risk precautions - pt/staff verbalize understanding validated via teach back Monitor safety awareness R82.90 Abnormal findings on urinalysis Known to have chronic, dysuria, and frequency Urine culture w/ mixed microbiota. Continue Simbabearaceli De nAda HPI: (Per hospital discharge) HOSPITAL COURSE: Pt [...] not collected. Patient is being discharged to [facility] in stable condition and agrees [...] records. OBJECTIVE: Labs/diagnostics: (more content not included)... [facility] 10-27-2023 History of Present illness Narrative Images from the original note were not included. Connected Care Unit Progress Note Patient Name: Krish Peralta Patient Facility: [facility] Admit Date 10/24/2023 Level of Care: Skilled [...] not collected. Patient is being discharged to [facility] in stable condition and agrees [...] which included preparing to see the patient, jmbg-je-mabo patient care, completing clinical documentation, obtaining and/or reviewing separately obtained history, performing a medically appropriate examination, counseling and educating the patient/family/caregiver, ordering medications, tests, or procedures, communicating with other HCPs (not separately reported), independently interpreting results (not separately reported), communicating results to the patient/family/caregiver, and care coordination (not separately reported). This note was partially generated using [employer] voice recognition system, and there may be some incorrect words, spellings, and punctuation that were not noted in checking the note before saving. Electronically signed by Kalli De Anda APRN.TECHNICIAN PREVENTATIVE MEDICINE documented in this encounter [facility] 10-24-2023 Note [facility]-22[facility] 10-16-2023 Note HNO ID: [id number] Author: KALLI DE ANDA APRN.CNP Service: ? Author Type: Nurse Practitioner Type: Progress Notes Filed: 10/17/2023 09:25 Note Text: Connected Care Unit Discharge Summary SNF Connected Care Program [place] [id number] [facility], [address] ([address]) [place] [address] - CONNECTED CARE DISCHARGE SUMMARY Service Date: 10/16/2023 Admission Date: 09/22/2023 Discharge Date: 10/16/2023 Facility: [facility] Level of Care: Skilled SNF Attending: [...] ready to go home. With assistance of [facility], and friends she is [...] Take 1 capsule by mouth once daily. Rbkit-0-PTJ-EPA-Fish Oil (FISH OIL) 1,000 mg (120 mg-180 [...] for wheezing/shortness of breath. Functional Status: Ambulatory [facility] Scheduled Future Appointments: No future appointments. Prior to discharge, staff to schedule follow up appointment for patient to see PCP within 7-10 days of discharge. I spent 35 minutes in the visit, with more than 50% of the total cnbl-jn-lefu time of the visit in counseling / coordination of care. Kalli De Anda APRN.[facility] 10-16-2023 History of Present illness Narrative Connected Care Unit Discharge Summary [facility] Connected Care Program [address], [address] ([address]) [place] [address] CONNECTED CARE DISCHARGE SUMMARY Service Date: 10/16/2023 Admission Date: 09/22/2023 Discharge Date: 10/16/2023 Facility: [facility] Level of Care: Skilled SNF Attending: [...] ready to go home. With assistance of C, and friends she is safe to go [...] Take 1 capsule by mouth once daily. Rksnu-2-WBQ-EPA-Fish Oil (FISH OIL) 1,000 mg (120 mg-180 [...] for wheezing/shortness of breath. Functional Status: Ambulatory [facility] Scheduled Future Appointments: No future appointments. Prior to discharge, staff to schedule follow up appointment for patient to see PCP within 7-10 days of discharge. I spent 35 minutes in the visit, with more than 50% of the total xyhn-tl-bcpz time of the visit in counseling / coordination of care. Kalli De Anda APRN.CNP documented in this encounter [facility] 10-14-2023 Note HNO ID: [id number] Author: KALLI DE ANDA APRN.CNP Service: ? Author Type: Nurse Practitioner Type: Progress Notes Filed: 10/14/2023 17:24 Note Text: Connected Care Unit Progress Note Patient Name: Krish Peralta Patient Facility: [facility] Admit Date 09/22/2023 Level of Care: [...] labs (E03.8) Other specified hypothyroidism TSH low Vxkhyizwmldss145 mcg ordered (A49.2) Haemophilus influenzae infection Levofloxacin [...] and agree Plan: Diet, Supplements DISCHARGE DISPOSITION: [facility] update Sitting up in her chair, she is alert and oriented x 3. She reports that she wants to go home this week. She denies any shortness of breath, chest discomfort or pain. She continues to work with therapy, she feels that she is ready to go home. 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 She continues [...] mg/dL Final Vit (more content not included)... [facility] 10-14-2023 History of Present illness Narrative Connected Care Unit Progress Note Patient Name: Krish Peralta Patient Facility: [facility] Admit Date 09/22/2023 Level of Care: [...] labs (E03.8) Other specified hypothyroidism TSH low Afkmdxfkyvyep063 mcg ordered (A49.2) Haemophilus influenzae infection Levofloxacin 750 mg every day Continue Mucinex x 5 days Recheck CBC CMP on 10/02/2023 Chest negative (E87.6) hypokalemia \\10/09/2023 potassium level was 2.9. She has been [...] and agree Plan: Diet, Supplements DISCHARGE DISPOSITION: [facility] update \\ Sitting up in her chair, she is alert and oriented x 3. She reports that she wants to go home this week. She denies any shortness of breath, chest discomfort or pain. She continues to work with therapy, she feels that she is ready to go home. 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 She continues [...] today,10/14/2023 This note was partially generated using [employer] voice recognition system, and there may be some incorrect words, spellings, and punctuation that were not noted in checking the note before saving Electronically signed by Kalli De Anda APRN.TECHNICIAN PREVENTATIVE MEDICINE documented in this encounter [facility] 10-09-2023 Note HNO ID: [id number] Author: KALLI DE ANDA APRN.CASSIE Service: ? Author Type: Nurse Practitioner Type: Progress Notes Filed: 10/09/2023 15:06 Note Text: Connected Care Unit Progress Note Patient Name: Krish Peralta Patient Facility: [facility] Admit Date 09/22/2023 Level of Care: [...] labs (E03.8) Other specified hypothyroidism TSH low Ffcrokkhprepg735 mcg ordered (A49.2) Haemophilus influenzae infection Levofloxacin [...] and agree Plan: Diet, Supplements DISCHARGE DISPOSITION: [facility] 10/09/2023 update Krish sitting up in her wheelchair, she is [...] Normal 1.74 Normal (more content not included)... [facility] 10-09-2023 History of Present illness Narrative Connected Care Unit Progress Note Patient Name: Krish Peralta Patient Facility: [facility] Admit Date 09/22/2023 Level of Care: [...] labs (E03.8) Other specified hypothyroidism TSH low Zxzpxzokpwisi727 mcg ordered (A49.2) Haemophilus influenzae infection Levofloxacin [...] and agree Plan: Diet, Supplements DISCHARGE DISPOSITION: [facility] 10/09/2023 update Krish sitting up in her wheelchair, she is [...] today,10/09/2023 This note was partially generated using [employer] voice recognition system, and there may be some incorrect words, spellings, and punctuation that were not noted in checking the note before saving Electronically signed by Kalli De Anda APRN.TECHNICIAN PREVENTATIVE MEDICINE documented in this encounter [facility] 10-07-2023 Note HNO ID: [id number] Author: KALLI DE ANDA APRN.CASSIE Service: ? Author Type: Nurse Practitioner Type: Progress Notes Filed: 10/07/2023 18:46 Note Text: Connected Care Unit Progress Note Patient Name: Krish Peralta Patient Facility: [facility] Admit Date 09/22/2023 Level of Care: [...] labs (E03.8) Other specified hypothyroidism TSH low Qspgngnxaxmql396 mcg ordered (A49.2) Haemophilus influenzae infection Levofloxacin [...] and agree Plan: Diet, Supplements DISCHARGE DISPOSITION: [facility] 10/07/2023 update Krish sitting up in her recliner, she is [...] range of mot (more content not included)... [facility] 10-07-2023 History of Present illness Narrative Images from the original note were not included. Connected Care Unit Progress Note Patient Name: Krish Peralta Patient Facility: [facility] Admit Date 09/22/2023 Level of Care: [...] labs (E03.8) Other specified hypothyroidism TSH low Kgfmbmdjelyvu158 mcg ordered (A49.2) Haemophilus influenzae infection Levofloxacin [...] and agree Plan: Diet, Supplements DISCHARGE DISPOSITION: [facility] 10/07/2023 chetna Diaz sitting up in [...] 10/07/2023 This note was partially generated using [employer] voice recognition system, and there may be some incorrect words, spellings, and punctuation that were not noted in checking the note before saving Electronically signed by Kalli De Anda APRN.CASSIE documented in this encounter [facility] 10-02-2023 Note HNO ID: [id number] Author: KALLI DE ANDA APRN.CNP Service: ? Author Type: Nurse Practitioner Type: Progress Notes Filed: 10/02/2023 17:31 Note Text: Connected Care Unit Progress Note Patient Name: Krish Peralta Patient Facility: [facility] Admit Date 09/22/2023 Level of Care: [...] labs (E03.8) Other specified hypothyroidism TSH low Vdlsmfpohxftx553 mcg ordered (A49.2) Haemophilus influenzae infection Levofloxacin [...] and agree Plan: Diet, Supplements DISCHARGE DISPOSITION: [facility] 10/02/2023 Krish sitting up in her recliner, she is [...] is warm a (more content not included)... [facility] 10-02-2023 History of Present illness Narrative Images from the original note were not included. Connected Care Unit Progress Note Patient Name: Krish Peralta Patient Facility: [facility] Admit Date 09/22/2023 Level of Care: [...] labs (E03.8) Other specified hypothyroidism TSH low Vtdoaltomkcki634 mcg ordered (A49.2) Haemophilus influenzae infection Levofloxacin [...] and agree Plan: Diet, Supplements DISCHARGE DISPOSITION: [facility] 10/02/2023 Krish sitting up in her recliner, she is [...] 10/02/2023 This note was partially generated using [employer] voice recognition system, and there may be some incorrect words, spellings, and punctuation that were not noted in checking the note before saving Electronically signed by Kalli De Anda APRN.TECHNICIAN PREVENTATIVE MEDICINE documented in this encounter [facility] 09-30-2023 Note HNO ID: [id number] Author: KALLI DE ANDA APRN.CASSIE Service: ? Author Type: Nurse Practitioner Type: Progress Notes Filed: 09/30/2023 15:34 Note Text: Connected Care Unit Progress Note Patient Name: Krish Peralta Patient Facility: [facility] Admit Date 09/22/2023 Level of Care: [...] labs (E03.8) Other specified hypothyroidism TSH low Ezpmsoijnpafq067 mcg ordered (A49.2) Haemophilus influenzae infection Levofloxacin [...] and agree Plan: Diet, Supplements DISCHARGE DISPOSITION: [facility] 09/30/2023 update Krish is sitting up in her recliner, she [...] no concerns. Staff has no concerns. 09/26/2023 chetna Diaz sitting up in recliner [...] Pupils: Pupils are (more content not included)... [facility] 09-30-2023 History of Present illness Narrative Images from the original note were not included. Connected Care Unit Progress Note Patient Name: Krish Peralta Patient Facility: [facility] Admit Date 09/22/2023 Level of Care: [...] labs (E03.8) Other specified hypothyroidism TSH low Nmrxiyblszwdk413 mcg ordered (A49.2) Haemophilus influenzae infection Levofloxacin [...] and agree Plan: Diet, Supplements DISCHARGE DISPOSITION: [facility] 09/30/2023 update Krish is sitting up in her recliner, she [...] concerns. Staff has no concerns. 09/26/2023 update Krish sitting up in recliner she is alert [...] uncontrolled pain exacerbations. Medications: Medications listed in [facility] during SNF admission may not be [...] 09/30/2023 This note was partially generated using [employer] voice recognition system, and there may be some incorrect words, spellings, and punctuation that were not noted in checking the note before saving Electronically signed by Kalli De Anda APRN.TECHNICIAN PREVENTATIVE MEDICINE documented in this encounter [facility] 09-26-2023 Note HNO ID: [id number] Author: KALLI DE ANDA APRN.CASSIE Service: ? Author Type: Nurse Practitioner Type: Progress Notes Filed: 09/26/2023 23:15 Note Text: Connected Care Unit Progress Note Patient Name: Krish Peralta Patient Facility: [facility] Admit Date 09/22/2023 Level of Care: [...] and agree Plan: Diet, Supplements DISCHARGE DISPOSITION: [facility] 09/26/2023 update Krish sitting up in recliner she is alert [...] present. Mental S (more content not included)... [facility] 09-26-2023 History of Present illness Narrative Images from the original note were not included. Connected Care Unit Progress Note Patient Name: Krish Peralta Patient Facility: [facility] Admit Date 09/22/2023 Level of Care: [...] and agree Plan: Diet, Supplements DISCHARGE DISPOSITION: [facility] 09/26/2023 update Krish sitting up in recliner she is alert [...] 09/26/2023 This note was partially generated using [employer] voice recognition system, and there may be some incorrect words, spellings, and punctuation that were not noted in checking the note before saving Electronically signed by Kalli De Anda APRN.TECHNICIAN PREVENTATIVE MEDICINE documented in this encounter [facility] 09-23-2023 Note HNO ID: [id number] Author: KALLI DE ANDA APRN.CASSIE Service: ? Author Type: Nurse Practitioner Type: Progress Notes Filed: 09/23/2023 15:28 Note Text: Connected Care Unit Progress Note Patient Name: Krish Peralta Patient Facility: [facility] Admit Date 09/22/2023 Level of Care: [...] and agree Plan: Diet, Supplements DISCHARGE DISPOSITION: [facility] 09/23/2023 update Krish is sitting up in wheelchair she is alert and oriented x 3. She denies any shortness of breath, chest discomfort or pain. She does have complaints of generalized pain, she does take tramadol at home. Did speak with [place] [facility] to get dosage. This was reordered. [...] present. Cervical back: (more content not included)... [facility] 09-23-2023 History of Present illness Narrative Images from the original note were not included. Connected Care Unit Progress Note Patient Name: Krish Peralta Patient Facility: [facility] Admit Date 09/22/2023 Level of Care: [...] and agree Plan: Diet, Supplements DISCHARGE DISPOSITION: [facility] 09/23/2023 update Krish is sitting up in wheelchair she is alert and oriented x 3. She denies any shortness of breath, chest discomfort or pain. She does have complaints of generalized pain, she does take tramadol at home. Did speak with [place] [facility] to get dosage. This was reordered. [...] which included preparing to see the patient, beoi-py-wgtu patient care, completing clinical documentation, obtaining and/or reviewing separately obtained history, performing a medically appropriate examination, counseling and educating the patient/family/caregiver, ordering medications, tests, or procedures, communicating with other HCPs (not separately reported), independently interpreting results (not separately reported), communicating results to the patient/family/caregiver, and care coordination (not separately reported). This note was partially generated using [employer] voice recognition system, and there may be some incorrect words, spellings, and punctuation that were not noted in checking the note before saving. This note was partially generated using [employer] voice recognition system, and there may be some incorrect words, spellings, and punctuation that were not noted in checking the note before saving. Electronically signed by Kalli De Anda APRN.TECHNICIAN PREVENTATIVE MEDICINE documented in this encounter [facility] 09-23-2023 Note HNO ID: [id number] Author: KAREN NOLEN RN Service: Nursing Author Type: Registered Nurse Type: Nursing Progress Note Filed: 09/23/2023 01:31 Note Text: Report called to nurse at [facility]. All questions answered. [facility] 09-23-2023 Note HNO ID: [id number] Author: KAREN NOLEN RN Service: Nursing Author Type: Registered Nurse Type: Nursing Progress Note Filed: 09/23/2023 01:21 Note Text: Assisted patient to ambulette w/c. PIV removed. All belonging sent with patient. [facility] 09-22-2023 Note HNO ID: [id number] Author: HILDA HALE RN Service: Nursing Author Type: Registered Nurse Type: Nursing Progress Note Filed: 09/22/2023 19:01 Note Text: Report called to Angie at [facility] 09-21-2023 Note [facility] 09-20-2023 Note [facility] 09-19-2023 Note [facility] 09-18-2023 Note [facility] 09-17-2023 Note [facility] 09-16-2023 Note [facility] 09-15-2023 Note [facility] 09-14-2023 Note [facility] 09-13-2023 Note [facility] 06-20-2023 Discharge summary Date of Service [...] only), Blood, Once, Preferred Lab: [facility], Stop date 06/20/23 5:00:00 EDT(Complete) Other status: CBC,06/20/23 5:00:00 EDT, Next AM Draw (one day only), Blood, Once, Preferred Lab: [facility], Stop date 06/20/23 5:00:00 EDT(Complete) Ordered: Discharge,06/20/23 13:17:00 EDT, Discharged to: [facility] Ordered: Konsyl,Dose = 1 pkt, Oral, [...] obesity and medical noncompliance. Patient presented to [facility] on 06/18/2023 with worsening shortness of breath [...] The patient is stable for discharge to [facility]. Updated daughter Emma over phone. Case d/w Dr. Gonzalez. Allergies [...] Why: Follow-up for sleep study Where: [address] [place] [phone] Business (1) Follow Up with AU[facility] CALL When Within 1-2 days Where: [address] [facility] [place] [address]- Business (1) Follow Up with Patient is discharged to [facility] LOC. Please call report to [phone]. When Within 1-2 days Follow Up with EMILY MCCARTY [facility] When Within 1-2 days Why: Please call the office to schedule a follow-up appointment. Where: [address] [facility] [place] [address]- Business (1) Follow Up Appointments Transfer of [...] Disposition SNF Information Provided To patient daughter emma Time Spent 32 minutes Digitally Signed by BAYLEE STONE on 06/20/2023 01:20 PM [facility] 06-20-2023 Note Discharge Instructions Thank you for allowing [facility] to assist you with your healthcare needs. The following is important discharge information regarding your hospital visit. Your Care Team EMILY MCCARTY MD Your Diagnosis Bradycardia COPD exacerbation Hypoxia Shortness of breath What to do next Scheduled Follow-Up Appointments Appointment Type When With Where Contact InformationEcho - Echocardiogram Adult 07/14/2023 10:00 AM EDT Amie [facility] OV 07/30/2023 10:40 AM EDT [facility] PHYSICIAN-TECHNICIAN PREVENTATIVE MEDICINE [facility] Medicare 09/01/2023 02:15 PM EDT EMILY MCCARTY MD [facility] Follow Up Appointments Follow Up with LINDA TEE When Within 1-2 days Why: Follow-up for sleep study Where: [address] [facility] [address] [place] [address]- [phone] Business (1) Follow Up with AUDR[facility] CALL When Within 1-2 days Where: [address] [place] [address] [address] [facility] [place] [address]- Business (1) Follow Up with Patient is discharged to [facility] LOC. Please call report to [phone]. When Within 1-2 days Follow Up with [facility] When Within 1-2 days Why: Please call the office to schedule a follow-up appointment. Where: [address] [facility] [place] [address]- Business (1) The Following Activity and Diet [...] Signed By - Ordered -- 06/20/23 13:17:00 EDT, WAQAS GONZALEZ MD Transfer of Care Oxygen Therapy - [...] to receive it can visit one of [facility] vaccine clinics. There are many vaccine clinic locations [facility] the [facility]. For locations and available times, please visit https://gettheshot.coronavirus.[place].gov/. It is important to note that some COVID mobile vaccine clinics are held outdoors and may be canceled in rainy or stormy conditions. To learn more about pediatric vaccinations (ages 5-11), we invite you to visit the [facility] webpage. https://www.[facility].org/pag es/0112-Hbdgu-Xjoexozytvk-Frequent sg-Suffk-Gfguhrgud.html To learn more about the COVID-19 vaccine, we invite you to visit the CDC website for a list of frequently asked questions.https://www.cdc.gov/luz navirus/2019-ncov/vaccines/faq.htm l [facility] Patient Portal Access Instructions: Stay connected with your healthcare team and access your personal medical information anytime with the [facility] Patient Portal. Please follow the directions below to create your [employer] account: 1.Access the email account you provided upon registration to the hospital/physician office.2.Look for an invitation email from [facility].3.Open the email and access the invitation link: Accept Invitation to [facility].4.Fill in the required carpenter to create your account. To access your account, visit [employer]/FaceRigOneChart. Click the blue button labeled "Access Patient Portal" and then log in with the username [...] you will allow to register on the [facility] [facility] [employer] Patient Portal for access to your information. You can also access the [employer] Patient Portal on the Zahra Anywhere vidhya. Simply click on "Patient Portal" and then log into your account. If you would like to receive a full copy of your medical records, please contact the [facility] Medical Records Department by calling [phone], Friday through Friday between 8 a.m. and [...] Call your local pharmacy or go to [email or web address] to find one close to you.3.Make use of household items: Use cat litter or old coffee grounds to dispose medications if other options are not available. Mix your drugs with these household products, seal them in an airtight container and throw it into the garbage. Call [facility]: [phone] to be sure your drugs can be [...] been reviewed and explained to me and I,KRISH PERALTA understand my current condition and have read and understand these discharge instructions. I have received a written copy of the plan/instructions. If I have questions, I am aware that I should contact my doctor. Patient/Senior Courtroom Clerk Signature: Date/Time: Relationship to Patient: ___ Witness Name/Signature: Date/Time: [facility] 06-20-2023 Discharge summary Date of Service 06/20/23 [...] only), Blood, Once, Preferred Lab: [facility], Stop date 06/20/23 5:00:00 EDT(Complete) Other status: CBC,06/20/23 5:00:00 EDT, Next AM Draw (one day only), Blood, Once, Preferred Lab: [facility], Stop date 06/20/23 5:00:00 EDT(Complete) Ordered: Discharge,06/20/23 13:17:00 EDT, Discharged to: [facility] Ordered: Konsyl,Dose = 1 pkt, Oral, [...] obesity and medical noncompliance. Patient presented to [facility] on 06/18/2023 with worsening shortness of breath [...] The patient is stable for discharge to [facility]. Updated daughter Emma over phone. Case d/w Dr. Gonzalez. Allergies [...] Why: Follow-up for sleep study Where: [address] [facility] [address] [place] [address]- [phone] Business (1) Follow Up with AUDRA CALL When Within 1-2 days Where: [address] [facility] [address] [facility] [place] [address]- Business (1) Follow Up with Patient is discharged to [facility]. Please call report to [phone]. When Within 1-2 days Follow Up with EMILY MCCARTY [facility] When Within 1-2 days Why: Please call the office to schedule a follow-up appointment. Where: [address] [facility] [address] [facility] [place] [address]- Business (1) Follow Up Appointments Transfer of [...] Disposition SNF Information Provided To patient daughter emma Time Spent 32 minutes Digitally Signed by BAYLEE STONE on 06/20/2023 01:20 PM [facility] 06-20-2023 Note Exam Date Time Procedure Performing Provider Status 06/20/23 12:37 PM Echocardiogram, Adult - CV Auth (Verified) [facility] 04-12-2024 Note Date of Service 06/20/23 Chief Complaint knee pain, generalized weakness Subjective 82-year-old female with past medical history of hypertension, hypothyroidism, GERD, COPD, chronic back pain, chronic diastolic heart failure, recurrent UTIs, osteoporosis, depression, morbid obesity and medical noncompliance. Patient presented to [facility] on 06/18/2023 with worsening shortness of breath [...] tablet 25 mg 1 tab(s), Oral, BID trxjl-4-dzif ethyl esters 1000 mg capsule 1,000 mg [...] SNF. Patient now agreeable, referral sent to [facility]. Lovenox for DVT prophylaxis Anticipate discharge when SNF bed available/Echo completed Ok to transfer to Plan discussed with patient. Updated daughter Emma over phone Case d/w Dr. Gonzalez Digitally Signed by BAYLEE STONE on 06/20/2023 12:15 PM [facility] [id number] Note Date of Service 06/19/23 Chief Complaint respiratory failure, HF exacerbation Subjective 82-year-old female with past medical history of hypertension, hypothyroidism, GERD, COPD, chronic back pain, chronic diastolic heart failure, recurrent UTIs, osteoporosis, depression, morbid obesity and medical noncompliance. Patient presented to [facility] on 06/18/2023 with worsening shortness of breath [...] tablet 25 mg 1 tab(s), Oral, BID zqkqg-8-vmcb ethyl esters 1000 mg capsule 1,000 mg [...] discussed with patient. VM left for daughter Emma over phone Case d/w Dr. Gonzalez Digitally Signed by BAYLEE STONE APRN-CASSIE on 06/19/2023 01:22 PM [facility] [id number] Cardiology Consult note Date of Service 06/19/2023 [...] cardiology standpoint. Hold off beta-chelita (labetolol). 30-day residential monitor on discharge. Thank you for the consult [...] LAURA HENRIQUEZ MD on 06/19/2023 02:57 PM [facility] [id number] Note Date of Service 06/19/23 Chief Complaint respiratory failure, HF exacerbation Subjective 82-year-old female with past medical history of hypertension, hypothyroidism, GERD, COPD, chronic back pain, chronic diastolic heart failure, recurrent UTIs, osteoporosis, depression, morbid obesity and medical noncompliance. Patient presented to [facility] on 06/18/2023 with worsening shortness of breath [...] tablet 25 mg 1 tab(s), Oral, BID xawyo-4-vblh ethyl esters 1000 mg capsule 1,000 mg [...] discussed with patient. VM left for daughter Emma over phone Case d/w Dr. Gonzalez Digitally Signed by BAYLEE STONE on 06/19/2023 01:22 PM [facility] [id number] Note Date of Service 06/19/23 Chief Complaint respiratory failure, HF exacerbation Subjective 82-year-old female with past medical history of hypertension, hypothyroidism, GERD, COPD, chronic back pain, chronic diastolic heart failure, recurrent UTIs, osteoporosis, depression, morbid obesity and medical noncompliance. Patient presented to [facility] on 06/18/2023 with worsening shortness of breath [...] tablet 25 mg 1 tab(s), Oral, BID ekclw-2-ahmh ethyl esters 1000 mg capsule 1,000 mg [...] discussed with patient. VM left for daughter Emma over phone Case d/w Dr. Gonzalez Digitally Signed by BAYLEE STONE APRN-CASSIE on 06/19/2023 01:22 PM [facility] [id number] Cardiology Consult note Date of Service 06/19/2023 [...] cardiology standpoint. Hold off beta-chelita (labetolol). 30-day residential monitor on discharge. Thank you for the consult [...] LAURA HENRIQUEZ MD on 06/19/2023 02:57 PM [facility] [id number] Respiratory therapy Hospital Progress note Respiratory Therapy [...] BID Tx use at home Sterling Khan RRT - 06/19/2023 8:19 EDT Digitally Signed by Sterling Khan RRT on 06/19/2023 08:19 AM [facility] [id number] History and physical note Date of Service [...] obesity, osteoporosis, chronic depression. She presented to [facility] on 06/18/2023 with complaints of weakness, shortness of breath andconcerns of low heart rate as low as 48 at home. To be noted, patient has been in communication with her primary care doctor and etcher enameling since 06/09/2023 with complaints of shortness of [...] communication with her primary care doctor and etcher enameling since 06/09/2023 with complaints of shortness of [...] by KENDALL NOLAN on 06/18/2023 01:54 PM [facility] [id number] Evaluation + Plan noteExtracted from: Title:History and Physical Author:ASPEN NOLAN Date:06/18/23 1. Shortness of breath 2. Hypoxia -Patient has been in communication with her primary care doctor and etcher enameling since 06/09/2023 with complaints of shortness of [...] 18, 2023 19:44:17 EDT Collaborative Care Team [facility] Medicine This is a shared/split visit Patient was seen and examined during hospitalization Labs imaging and documentation were reviewed Care discussed during a.m. rounds treatment plan was developed independently and implemented with OBGYN HOSPITALIST PHYSICIAN assistance Agree with assessment and plan 82-year-old [...] MCCARTY MD Location:[facility] Appointment Type:PC Wellness Medicare [facility] 04-10-2024 History and physical note Date [...] obesity, osteoporosis, chronic depression. She presented to [facility] on 06/18/2023 with complaints of weakness, shortness of breath andconcerns of low heart rate as low as 48 at home. To be noted, patient has been in communication with her primary care doctor and etcher enameling since 06/09/2023 with complaints of shortness of [...] communication with her primary care doctor and etcher enameling since 06/09/2023 with complaints of shortness of [...] by KENDALL NOLAN on 06/18/2023 01:54 PM [facility] [id number] NoteSINUS OR ECTOPIC ATRIAL RHYTHM NONSPECIFIC IVCD WITH LAD LEFT VENTRICULAR HYPERTROPHY ANTERIOR Q WAVES, POSSIBLY DUE TO LVH Electronic Signature: MD SCOTT BLANCHARD MD 06/18/2023 09:35:12[facility] 04-10-2024 Note ORIGINAL EXAMINATION: ONE XRAY VIEW [...] Date: 06/18/2023 8:22:34 AM [facility] Discharge instructions Follow Up Care 06/18/2023 06:14:47 With:LINDA TEE Address: [address] [place] [phone] [phone] Business (1) When:1-2 days Comments:Follow-up for sleep study With:AUDRA CALL Address: [address] [place] [address] [address] [facility] [place] [address]- Business (1) When:1-2 days With:Patient is discharged to [facility]. Please call report to [phone]. Address:Unknown When:1-2 days With:[facility]ILY MCCARTY [facility] Address: [address] [place] [address] [address] [facility] [place] [phone]- Business (1) When:1-2 days Comments:Please call the office to schedule a follow-up appointment. [facility] 12-10-2022 Note Discharge Instructions Thank you for allowing [facility] to assist you with your healthcare needs. [...] Appointment Type When With Where Contact InformationNS TAX ACCOUNTING MANAGER 02/20/2022 11:00 AM EST Neurosurgery [address] [facility] [address] [place] [address] PC OV Follow Up 04/25/2022 01:00 PM EMILY PARK MD [facility] Follow Up Appointments [facility] When Within 5 to 7 days Why: Please call the office to schedule a follow up appointment Where: [address] [place] [address] [address] [facility] [place] [address]- Follow Up with [facility], When Within [...] 12 hours Duration: 6 Days Pickup at [facility] #54164 New oseltamivir (Tamiflu 75 mg oral capsule) 1 cap by mouth Two (2) times a day Duration: 1 Days Pickup at [facility] #49678 Changed predniSONE (prednisone 20mg tab (TAPER)) Taper 60-40-20 mg x 3 days each dose by mouth Every day Duration: 9 Days Pickup at [facility] #38316 Unchanged acetaminophen (Tylenol Extra Strength 500 mg [...] Four (4) times a day Pickup at [facility] #10654 Unchanged aspirin (aspirin 325 mg oral delayed [...] Rash Unchanged DME (Prescription MISCellaneous) See instructions [facility]--aplly once daily to wound. Unchanged DULoxetine (DULoxetine [...] as needed for for constipation Pharmacy Information [id number]: [address] [place], [place] [phone] What How Much When Comments Stop Taking [...] or as directed by your healthcare provider [phone] [employer]. [address] [place] [address]. All rights reserved. This information is not intended as a substitute for professional medical care. Always follow yourhealthcare professional's instructions. Additional Information VACCINATE! IT SAVES LIVES! Members of the community who have not yet received the COVID-19 vaccine and would like to receive it can visit one of [facility] vaccine clinics. There are many vaccine clinic locations within the [facility]. For locations and available times, please visit [email or web address] It is important to note that some COVID mobile vaccine clinics are held outdoors and may be canceled in rainy or stormy conditions. To learn more about pediatric vaccinations (ages 5-11), we invite you to visit the [facility] webpage. [email or web address]/[email or web address]-[email or web address]-[email or web address]-Ith stions.htmlTo learn more about the COVID-19 vaccine, we invite you to visit the [facility] website for a list of frequently asked questions. [email or web address]-[email or web address] _[email or web address]-Questions.pdf [facility] Patient Portal Access Instructions: Stay connected with your healthcare team and access your personal medical information anytime with the [facility] Patient Portal.If you would like a full copy of your medical records, please contact the [facility] Medical Records Department, Friday through Friday between 8a.m. and 4:30p.m. Please follow the directions below to access the portal: 1.Access the email account you provided upon registration to the [facility].2.Look for an invitation email from [facility].3.Open the email and access the invitation link: Accept Invitation to [facility]4.Fill in the required carpenter to create your account. Sign into [email or web address] with your username and password that you [...] you will allow to register on the [facility] [employer] Patient Portal for access to your information. You can also access the [facility] [employer] Patient Portal on the StepLeader. Simply click on "Health Records" under "HealthData" and then click on the Zahra logo. HOW TO SAFELY DISPOSE OF PRESCRIPTION [...] Call your local pharmacy or go to [email or web address] to find one close to you.3.Make use of household items: Use cat litter or old coffee grounds to dispose medications if other options arenot available. Mix your drugs with these household products, seal them in an airtight container andthrow it into the garbage. Call [facility]: [phone] to be sure your drugs can be [...] been reviewed and explained to me and I,KRISH PERALTA understand my current condition and have read and understand these discharge instructions. I have received a written copy of the plan/instructions. If I have questions, I am aware that I should contact my doctor. Patient/Senior Courtroom Clerk Signature: Date/Time: Relationship to Patient: Witness Name/Signature: Date/Time: [facility] [id number] Discharge summary Date of Service February 16, [...] as needed Rash. Refills: 3. DME (Prescription MISCellaneous)Medihoney--aplly once daily to wound.. Refills: 1. DULoxetine [...] Follow Up with EMILY MCCARTY MD, [facility] When Within 5 to 7 days Why: Please call the office to schedule a follow up appointment Where: [address] [place] [address] [address] [facility] [place] [address]- Follow Up with Direction Gaurav, When Within 1-2 days Why: A referral [...] NIKOLAY ARANDA MD on 02/16/2022 06:34 PM [facility] [id number] Respiratory therapy Hospital Progress note Respiratory Therapy [...] Felicitas Lau LPN on 02/16/2022 09:26 AM [facility] [id number] Note Chief Complaint Transition plan Transitional Action [...] drive. She does have a referral to [facility] home health care for an aide, noted to likely anticipate [...] Rate19(FEB 16 08:45)19(FEB 15 12:20)20(FEB 15 10:47) KMP633(FEB 16 08:45)113(FEB 15 15:04)138(FEB 15 21:40) DBP70(FEB [...] 30 gram(s), 3 Refill(s). DME: See Instructions, Medihoney--aplly once daily to wound., 1 EA, 1 [...] by VERA HAGER on 02/16/2022 06:33 PM [facility] [id number] Note Date of Service February 15, 2022 [...] cap(s), Oral, qDay fluticasone nasal 0.05 mg/inh [place] 50 mcg 1 spray(s), Nostril, each, BID [...] NIKOLAY ARANDA MD on 02/15/2022 05:47 PM [facility] [id number] Note Date of Service February 14, 2022 [...] cap(s), Oral, qDay fluticasone nasal 0.05 mg/inh [place] 50 mcg 1 spray(s), Nostril, each, BID [...] NIKOLAY ARANDA MD on 02/14/2022 07:48 PM [facility] [id number] Note Date of Service February 13, 2022 [...] cap(s), Oral, qDay fluticasone nasal 0.05 mg/inh [place] 50 mcg 1 spray(s), Nostril, each, BID [...] NIKOLAY ARANDA MD on 02/13/2022 07:42 PM [facility] [id number] History and physical note Date of Service [...] allergic rhinitis, GERD, urinary incontinence presented to [facility] on February 12, 2022 with a chief [...] potassium replacement and Tamiflu 75 mg at [facility] prior to my evaluation. Patient was accepted [...] Sapp LPN (01/23/22 15:34:00) Lab Performing Location: [facility] (01/23/22 15:34:00) Perf Loc - POCT: Tested [...] Low (02/12/22 11:34:00) Hemoglobin (POC): 12.8 G/dL (02/12/22:34:00) Hematocrit (POC): 37.8 % (02/12/22 11:34:00) MCV (POC): 88.5 fL (02/12/22:34:00) MCH (POC): [...] Ketones Urine Dipstick: Negative (01/23/22 15:34:00) Specific [place]ushing Urine Dipstick: 1.010 (01/23/22 15:34:00) Blood Urine [...] Date: February 12, 2022 Verified By: SANDRA IMLES MD CLINICAL STATEMENT: IMPRESSION: Mild left atelectasis, otherwise clear lungs. EKG EC02/12/22: Sinus rhythm...normal P axis, V-rate 50- 99 Short MN interval...MN <110mS Nonspecific IVCD with LAD...QRSd >120mS & [...] Point of contact influenza A positive at [facility] Patient was wheezing on my evaluation [...] every 8 hours Note was written using Adly acid crane operator software. Some of the meaning of the words and sentences might have changed during acid crane operator, if there was ever some confusion about [...] LORIN RODRIGUEZ MD on 02/12/2022 11:29 PM [facility] [id number] Note Chief Complaint Transition Plan. Transitional Action [...] failure due to influenza A and hypokalemia. Abrahan had no hospitalizations in the past year [...] 30 gram(s), 3 Refill(s). DME: See Instructions, Medihoney--aplly once daily to wound., 1 EA, 1 [...] by VERA HAGER on 02/13/2022 12:51 PM [facility] [id number] History and physical note Date of Service [...] allergic rhinitis, GERD, urinary incontinence presented to [facility] on February 12, 2022 with a chief [...] potassium replacement and Tamiflu 75 mg at [facility] prior to my evaluation. Patient was accepted [...] Sapp LPN (01/23/22 15:34:00) Lab Performing Location: [facility] (01/23/22 15:34:00) Perf Loc - POCT: Tested [...] mg/dL (02/12/22 11:48:00) Creatinine (POC): 0.87 mg/dL (02/12/22:48:00) BUN/Creatinine Ratio (POC): 24.6 ratio High (02/12/22 11:48:00) Est GFR (POC): >60 (02/12/22 11:48:00) Est GFR Non- (POC): >60 (02/12/22 11:48:00) B-Natriuretic Peptide (POC): 41 pg/mL (02/12/22 12:08:00) Troponin I (POC): <0.05 (02/12/22 12:03:00) WBC (POC): 4.17 10^3/mcL Low (02/12/22:34:00) RBC (POC): 4.27 10^6/mcL Low (02/12/22 11:34:00) Hemoglobin (POC): 12.8 G/dL (02/12/22 11:34:00) Hematocrit (POC): 37.8 % (02/12/22 11:34:00) MCV (POC): 88.5 fL (02/12/22 11:34:00) MCH (POC): 30 pg (02/12/22:34:00) MCHC (POC): 33.9 G/dL (02/12/22 11:34:00) RDW [...] Ketones Urine Dipstick: Negative (01/23/22 15:34:00) Specific [place]ushing Urine Dipstick: 1.010 (01/23/22 15:34:00) Blood Urine [...] rhythm...normal P axis, V-rate 50- 99 Short MN interval...MN <110mS Nonspecific IVCD with LAD...QRSd >120mS & [...] Point of contact influenza A positive at [facility] Patient was wheezing on my evaluation likely [...] every 8 hours Note was written using Adly acid crane operator software. Some of the meaning of the words and sentences might have changed during acid crane operator, if there was ever some confusion about [...] LORIN RODRIGUEZ MD on 02/12/2022 11:29 PM [facility] [id number] SARS-CoV-2 (COVID-19) RdRp gene LYDIA+probe Ql (Resp) Negative (02/12/22 3:38 PM)AM [facility] [id number] Hospital Discharge instructions Patient Education 02/12/2022 13:37:15 [...] or as directed by your healthcare provider [phone] [employer]. [address] [place] [address], [place] [address]. All rights reserved. This information is not intended as a substitute for professional medical care. Always follow yourhealthcare professional's instructions. Follow Up Care 02/12/2022 11:08:19 With:EMILY MCCARTY MD, [facility] Address: [address] [place] [address] [address] [facility] [place] [address]- When:5 to 7 days Comments:Please call the office to schedule a follow up appointment With:Say Nolasco, Address:Unknown When:1-2 days Comments:A referral was made for aide services for you. Call them with any questions With:Go to emergency room if symptoms worsen Address:Unknown When:2-4 days [facility] 12-06-2022 Evaluation + Plan noteExtracted from: Title:History and Physical Author:LORIN RODRIGUEZ MD Date:02/12/22 Acute respiratory failure wi th hypoxia: Oxygen saturation of 88% room air Continue oxygen via nasal cannula Likely due to influenza A infection triggering bronchoconstriction Influenza A infection: Patient presented with hypoxia, shortness of breath Point of contact influenza A positive at [facility] Patient was wheezing on my evaluation likely [...] every 8 hours Note was written using Adly acid crane operator software. Some of the meaning of the words and sentences might have changed during acid crane operator, if there was ever some confusion about the meaning of some sentences, please do not hesitate to contact me. Addendum by LORIN RODRIGUEZ MD on February 13, 2022 05:24:23 EST Hypomagnesemia: Magnesium of 1.4 on admission Replacing Hypophosphatemia: Phosphorus of 1.7 on admission Replacing Future Appointments Appointment Date:02/20/2022 11:00:00 AM Scheduled Provider: Location:[facility] Appointment Type:ADALBERTO TAX ACCOUNTING MANAGER Appointment Date:04/25/2022 01:00:00 PM Scheduled Provider:EMILY MCCARTY MD Location:[facility] Appointment Type:PC OV Follow Up Future Scheduled Tests Laboratory* Urine Culture 01/23/22 * Complete Metabolic Panel 01/22/22 Radiology* CT Coronary Calcium Score w/o Contrast 11/15/21 [facility] 12-06-2022 Emergency department Discharge summary Discharge Instructions Thank you for allowing [facility] to assist you with your healthcare needs. [...] Follow Up with EMILY MCCARTY MD, [facility] When Within 2-4 days Where: [address] [facility] [place] [address]- Allergies Ambien Aspartame (non-codified) Ativan Nembutal Percocet [...] Rash Unchanged DME (Prescription MISCellaneous) See instructions [facility]--aplly once daily to wound. Unchanged doxycycline (doxycycline [...] or as directed by your healthcare provider [phone] [employer]. [address] [place] [address]. All rights reserved. This information is not intended as a substitute for professional medical care. Always follow yourhealthcare professional's instructions. Additional Information VACCINATE! IT SAVES LIVES! Members of the community who have not yet received the COVID-19 vaccine and would like to receive it can visit one of [facility] vaccine clinics. There are many vaccine clinic locations within the [facility]. For locations and available times, please visit [email or web address]. It is important to note that some COVID mobile vaccine clinics are held outdoors and may be canceled in rainy orstormy conditions. To learn more about pediatric vaccinations (ages 5-11), we invite you to visit the [facility] webpage. [email or web address] learn more about the COVID-19 vaccine, we invite you to visit the [facility] website for a list of frequently asked questions. [email or web address] [facility] Patient Portal Access Instructions: Stay connected with your healthcare team and access your personal medical information anytime with the [facility] Patient Portal. If you would like a full copy of your medical records please contact the [facility] Medical Records Department Friday through Friday between 8a.m. and 4:30p.m. Please follow the directions below to access the portal: 1.Access the email account you provided upon registration to the [facility].2.Look for an invitation email from [facility].3.Open the email and access the invitation link: Accept Invitation to [facility]4.Fill in the required carpenter to create your account. Sign into [email or web address] with your username and password that you [...] you will allow to register on the [facility] Patient Portal for access to your information. You can also access the [facility] Patient Portal on the [employer]. Simply click on "Health Records" under "HealthData" and then click on the [facility] logo. HOW TO SAFELY DISPOSE OF PRESCRIPTION [...] Call your local pharmacy or go to http://bit.ly/0Z1Ao9c to find one close to you.3.Make use of household items: Use cat litter or old coffee grounds to dispose medications if other options arenot available. Mix your drugs with these household products, seal them in an airtight container andthrow it into the garbage. Call [facility]: [phone] to be sure your drugs can be [...] been reviewed and explained to me and I,KRISH PERALTA understand my current condition and have read and understand these discharge instructions. I have received a written copy of the plan/instructions. If I have questions, I am aware that I should contact my doctor. Patient/Senior Courtroom Clerk Signature: Date/Time: Relationship to Patient: Witness Name/Signature: Date/Time: [id number] Note ORIGINAL HISTORY: Short of breath, cough [...] Sign Date: 02/12/2022 11:58:31 AM Ordering Provider: MARLEEDAVID WEIR [facility] [id number] Note ORIGINAL HISTORY: Short of breath, cough [...] Sign Date: 02/12/2022 11:58:31 AM Ordering Provider: [facility]06-22-2021 [facility] [place] [facility] Future Appointments Appointment Date:02/08/2021 01:30:00 PM Scheduled Provider:EMILY MCCARTY [facility] Type:PC OV Follow Up Future Scheduled Tests Laboratory* Basic Metabolic Panel 07/07/20 * Complete Metabolic Panel 01/22/22 [facility] Evaluation + Plan note Future Appointments Appointment Date:04/25/2022 01:00:00 PM Scheduled Provider:EMILY MCCARTY MD [facility] Appoint[facility] Type:PC OV Follow Up Future Scheduled Tests Laboratory* Urine Culture 01/23/22 * Complete Metabolic Panel 01/22/22 Radiology* XR Spine Lumbar AP/LAT/FLEX/EXT 04/08/22 * CT Coronary Calcium Score w/o Contrast 11/15/21 [facility] Evaluation note* Diagnosis Urinary tract infection with hematuria, site unspecified- Primary Hypertension, unspecified type Other specified hypothyroidism Acute hypoxic respiratory failure (HCC) Debility Debility, unspecified OAB (overactive bladder) Hypertonicity of bladder [facility] Diagnosis Urinary tract infection with hematuria, site unspecified- Primary Hypertension, unspecified type Other specified hypothyroidism Acute hypoxic respiratory failure (HCC) Debility Debility, unspecified [facility]* Diagnosis Urinary tract infection with hematuria, site unspecified- Primary Haemophilus influenzae infection Hemophilus influenzae (H. influenzae) infection in conditions classified elsewhere and of unspecified site Hypertension, unspecified type Other specified hypothyroidism Acute hypoxic respiratory failure (HCC) Debility Debility, unspecified [facility]* Diagnosis Urinary tract infection with hematuria, site unspecified- Primary Haemophilus influenzae infection Hemophilus influenzae (H. influenzae) infection in conditions classified elsewhere and of unspecified site Hypertension, unspecified type Other specified hypothyroidism Acute hypoxic respiratory failure (HCC) Debility Debility, unspecified OAB (overactive bladder) Hypertonicity of bladder documented in this encounter [facility] note* Diagnosis Urinary tract infection with hematuria, site unspecified- Primary Haemophilus influenzae infection Hemophilus influenzae (H. influenzae) infection in conditions classified elsewhere and of unspecified site Hypertension, unspecified type Other specified hypothyroidism Acute hypoxic respiratory failure (HCC) Debility Debility, unspecified documented in this encounter [facility] note* Diagnosis Urinary tract infection with hematuria, site unspecified- Primary Haemophilus influenzae infection Hemophilus influenzae (H. influenzae) infection in conditions classified elsewhere and of unspecified site Hypertension, unspecified type Other specified hypothyroidism Acute hypoxic respiratory failure (HCC) Hypokalemia Hypopotassemia Debility Debility, unspecified documented in this encounter [facility] note* Diagnosis Non-traumatic rhabdomyolysis- Primary Acute pain of right shoulder Personal history of fall Hypertension, unspecified type Chronic obstructive pulmonary disease, unspecified COPD type (HCC) Debility Debility, unspecified Abnormal finding on urinalysis Other nonspecific finding on examination of urine Other specified hypothyroidism [facility]* Diagnosis Acute pain of right shoulder- Primary Personal history of fall Non-traumatic rhabdomyolysis Hypertension, unspecified type Chronic obstructive pulmonary disease, unspecified COPD type (HCC) Debility Debility, unspecified Dysuria documented in this encounter [facility] note* Diagnosis Acute pain of right shoulder- Primary Personal history of fall Non-traumatic rhabdomyolysis Hypertension, unspecified type Chronic obstructive pulmonary disease, unspecified COPD type (HCC) Debility Debility, unspecified documented in this encounter [facility] note* Diagnosis Acute pain of right shoulder- Primary Personal history of fall Non-traumatic rhabdomyolysis Hypertension, unspecified type Chronic obstructive pulmonary disease, unspecified COPD type (HCC) Debility Debility, unspecified documented in this encounter [facility] note* Diagnosis COPD exacerbation (HCC)- Primary Obstructive chronic bronchitis with exacerbation COPD exacerbation (HCC) Obstructive chronic bronchitis with exacerbation Acute on chronic congestive heart failure, unspecified heart failure type (HCC) Acute hypoxic respiratory failure (HCC) documented in this encounter [facility] note* Diagnosis Hospital discharge follow-up- Primary Other follow-up examination Acute on chronic respiratory failure with hypoxemia (HCC) COPD exacerbation (HCC) Obstructive chronic bronchitis with exacerbation Community acquired pneumonia of right lower lobe of lung JOCELIN (obstructive sleep apnea) Obstructive sleep apnea (adult) (pediatric) Smoking history documented in this encounter [facility] course Narrative No data available for this section [facility] Hospital Discharge instructions No data available for this section [facility] Progress note No data available for this section [facility] Summary Purpose Family History No Family History Records FoundNo Family History Records FoundNo Family History Records Found No data available for this section No Family History Records FoundNo Family History Records FoundNo Family History Records FoundNo Family History Records FoundNo Family History Records Found Advance Directives No Advanced Directives Records FoundDocuments on File Type Date Recorded Patient Senior Courtroom Clerk Expl anation Advance Directive(s) 09/23/2023 4:28 PM [...] Documents on File Type Date Recorded Patient Senior Courtroom Clerk Expl anation DNR (Do Not Resuscitate) 08/11/2024 12:53 PM [place] DNR Form Advance Directives and Livin g Will 08/03/2024 7:07 PM Power of Lpn Per Di[place] 08/03/2024 7:05 PM DNR (Do Not Resuscitate) 08/03/2024 7:03 PM Date Activated Date Inactivated Comments 08/04/2024 5:51 AM 08/11/2024 7:35 PM Question Answer Comments ICU transfer: No Date Activated Date Inactivated Comments 08/03/2024 10:39 PM 08/04/2024 5:51 AM Documents on File Type Date Recorded Patient Senior Courtroom Clerk Expl anation DNR (Do Not Resuscitate) 08/12/2024 10:00 AM Advance Directives and Livin g Will 08/12/2024 9:26 AM Power of Lpn Per Di[place] 08/12/2024 9:25 AM DNR (Do Not Resuscitate) 08/11/2024 12:53 PM [place] DNR Form Advance Directives and Livin g Will 08/03/2024 7:07 PM Power of Lpn Per Di[place] 08/03/2024 7:05 PM DNR (Do Not Resuscitate) 08/03/2024 7:03 PM Additional Source Comments INFORMATION SOURCE (unrecogn ized section and content) DATE CREATED AUTHOR 02/16/2018 [facility] DATE CREATED AUTHOR AUTHOR'S ORGANIZ ATION 04/24/2021 [facility] DATE CREATED AUTHOR AUTHOR'S ORGANIZ ATION 01/17/2022 [facility] DATE CREATED AUTHOR AUTHOR'S ORGANIZ ATION 09/11/2023 [facility] DATE CREATED AUTHOR AUTHOR'S ORGANIZ ATION 11/12/2023 [facility] DATE CREATED AUTHOR AUTHOR'S ORGANIZ ATION 11/30/2023 [facility] DATE CREATED AUTHOR AUTHOR'S ORGANIZ ATION 08/28/2024 [facility] DATE CREATED AUTHOR AUTHOR'S ORGANIZ ATION 09/02/2024 [facility] Care Team (unrecognized sect ion and content) Care Team Personnel Name: EMILY MCCARTY MD Position: P4 Physician - Primary Care Member Role: Primary Care Physician Address: Address: [address] [place] [address] [address] [place] [address]- Name: Kendall Harris RN Position: ED RN Member Role: ED RN Care Team Related Persons Name: EMMA RICHARDS Name: LAURA REYNOSO Address: Home Care Team Personnel Name: EMILY MCCARTY MD Position: P4 Physician - Primary Care Member Role: Primary Care Physician Address: Address: [address] [place] [address] [address] [place] [address]- Care Team Related Persons Name: EMMA RICHARDS Name: LAURA REYNOSO Address: Home Patient Care team informatio n (unrecognized section and content) Seismograph Observer Relationship Specialty Start Date End Date Emily Mccarty MD [address] [facility] [address] [place] [address] PCP - General Internal Medicine 12/31/22 Seismograph Observer Relationship Specialty Start Date End Date Emily Mccarty MD [address] [facility] [address] [place] [address] PCP - General Internal Medicine 12/31/22 Seismograph Observer Relationship Specialty Start Date End Date Emily Mccarty MD [address] [facility] [address] [place], [place] [address] PCP - General Internal Medicine 12/31/22 Seismograph Observer Relationship Specialty Start Date End Date Emily Mccarty MD [address] [facility] [address] [place] [address] PCP - General Internal Medicine 12/31/22 Seismograph Observer Relationship Specialty Start Date End Date Emily Mccarty MD [address] [facility] [place] [address] PCP - General Internal Medicine 12/31/22 Seismograph Observer Relationship Specialty Start Date End Date Emily Mccarty MD [address] [place] [address] PCP - General Internal Medicine 12/31/22 Source Comments (unrecognize d section and content) In the event this informatio n is protected by the Federal Confidentiality of Alcohol and Drug Abuse Patient Records regulations: The Federal rules restrict any use of the information to criminally investigate or prosecute any alcohol or drug abuse patient.[facility] the event this information is protected by the Federal Confidentiality of Alcohol and Drug Abuse Patient Records regulations: The Federal rules restrict any use of the information to criminally investigate or prosecute any alcohol or drug abuse patient.[facility] SystemIn the event this information is protected by the Federal Confidentiality of Alcohol and Drug Abuse Patient Records regulations: The Federal rules restrict any use of the information to criminally investigate or prosecute any alcohol or drug abuse patient.[facility] SystemIn the event this information is protected by the Federal Confidentiality of Alcohol and Drug Abuse Patient Records regulations: The Federal rules restrict any use of the information to criminally investigate or prosecute any alcohol or drug abuse patient.[facility] SystemIn the event this information is protected by the Federal Confidentiality of Alcohol and Drug Abuse Patient Records regulations: The Federal rules restrict any use of the information to criminally investigate or prosecute any alcohol or drug abuse patient.[facility] SystemIn the event this information is protected by the Federal Confidentiality of Alcohol and Drug Abuse Patient Records regulations: The Federal rules restrict any use of the information to criminally investigate or prosecute any alcohol or drug abuse patient.[facility] SystemIn the event this information is protected by the Federal Confidentiality of Alcohol and Drug Abuse Patient Records regulations: The Federal rules restrict any use of the information to criminally investigate or prosecute any alcohol or drug abuse patient.[facility] SystemIn the event this information is protected by the Federal Confidentiality of Alcohol and Drug Abuse Patient Records regulations: The Federal rules restrict any use of the information to criminally investigate or prosecute any alcohol or drug abuse patient.[facility] SystemIn the event this information is protected by the Federal Confidentiality of Alcohol and Drug Abuse Patient Records regulations: The Federal rules restrict any use of the information to criminally investigate or prosecute any alcohol or drug abuse patient.[facility] SystemIn the event this information is protected by the Federal Confidentiality of Alcohol and Drug Abuse Patient Records regulations: The Federal rules restrict any use of the information to criminally investigate or prosecute any alcohol or drug abuse patient.[facility] SystemIn the event this information is protected by the Federal Confidentiality of Alcohol and Drug Abuse Patient Records regulations: The Federal rules restrict any use of the information to criminally investigate or prosecute any alcohol or drug abuse patient.[facility] SystemIn the event this information is protected by the Federal Confidentiality of Alcohol and Drug Abuse Patient Records regulations: The Federal rules restrict any use of the information to criminally investigate or prosecute any alcohol or drug abuse patient.[facility] SystemIn the event this information is protected by the Federal Confidentiality of Alcohol and Drug Abuse Patient Records regulations: The Federal rules restrict any use of the information to criminally investigate or prosecute any alcohol or drug abuse patient.[facility] Reason for Visit (unrecogniz ed section and content) Reason Comments Shortness of Breath Specialty Diagnoses / Procedures Referred By Contac t Referred To Contact Diagnoses COPD exacerbation (HCC) Acute on chronic congestive heart failure, unspecified heart failure type (HCC) Procedures .. Fransisco Pete MD [address] [place] [address] Phone: tel: fax: [facility] Cardiac Progressive Care Unit [address] [place] [address] Phone: tel: Referral ID Status Reason Start Date Expiration Date Visits Re quested Visits Authorized [id number] 1 1 Reason Comments Hospital Follow-up COPD PNEUMONIA, HFLU, ARF ,-O2 @ NIGHT PRN Scheduled Active and Recently Administ ered Medications (unrecognized section and content) Medication Order 08/09/2024 08/10/2024 08/11/2024 amLODIPine (Norvasc) tablet 5 mg 5 mg, Oral, Every 24 hours, First dose on Fri08/04/24 at 1200 1135 (Given - Provider: Adrian Palma RN) 1208 (Given - Provider: Iona Sheppard, ELÍAS) 1225 (Given - Provider: Tereso Matta, ELÍAS) cefTRIAXone (Rocephin) 1,000 mg in sodium chloride 0.9 % 50 mL IVPB Mini-Bag Plus (CANCELED) 1,000 mg, IntraVENous, at 100 mL/hr, Administer over 30 Minutes, Every 24 hours, First dose on Fri08/04/24 at 1100, Mini-Bag Plus bag, Suspected Indication (Select all that apply): Pneumonia (CAP) 1136 (New Bag - Provider: Adiran Palma RN)1303 (Stopped - Provider: Adrian Palma RN) cephalexin (Keflex) capsule 1,000 mg (COMPLETED) 1,000 mg, Oral, Every 8 hours, First dose on Fri08/09/24 at 2000, For 5 doses, Suspected Indication (Select all that apply): Pneumonia (CAP) 2136 (Given - Provider: Sophy Olmos RN) 0424 (Given - Provider: Sophy Olmos RN)1208 (Given - Provider: Iona Sheppard, ELÍAS)203 (Given - Provider: Karma Flores, ELÍAS) 0602 (Given - Provider: Karma Flores RN - Comment: pt coughing wanting to wait) enoxaparin (Lovenox) syringe 30 mg 30 mg, SubCUTAneous, Every 12 hours scheduled (2 times per day), First dose on Fri08/03/24 at 2240, Indication of Use: Prophylaxis-DVT/PE 0811 (Given - Provider: Adrian Palma RN)213 (Given - Provider: Sophy Olmos RN) 0926 (Given - Provider: Iona Sheppard, ELÍAS)203 (Given - Provider: Karma Flores, ELÍAS) 09 (Given - Provider: Tereso Matta RN) escitalopram (Lexapro) tablet 10 mg 10 mg, Oral, Nightly, First dose on Fri08/04/24 at 2100 2136 (Given - Provider: Sophy Olmos, ELÍAS) 203 (Given - Provider: Karma Flores, RN) furosemide (Lasix) injection 20 mg (COMPLETED) 20 mg, IntraVENous, Once, On Fri08/09/24 at 1600, For 1 dose 1606 (Given - Provider: Adrian Palma, RN) furosemide (Lasix) tablet 20 mg 20 mg, Oral, 2 times daily, First dose on Fri08/04/24 at 1500 0538 (Given - Provider: Sophy Olmos, ELÍAS)1606 (Given - Provider: Adrian Palma, ELÍAS) 0607 (Given - Provider: Sophy Olmos RN)1512 (Given - Provider: Iona Sheppard, ELÍAS) 0602 (Given - Provider: Karma Flores, RN)1349 (Given - Provider: Tereso Matta RN) ipratropium-albuterol (Duo-Neb) 0.5-2.5 mg/3 mL nebulizer solution 3 mL 3 mL (1 ampule), Nebulization, Every 4 hours while awake, First dose on Fri08/04/24 at 0800 0841 (Given - Provider: Khari Riojas RCP)1141 (Given - Provider: Khari Riojas RCP)1634 (Given - Provider: Khari Riojas RCP)2010 (Given - Provider: Wagner Mejia, DENTAL CHAIR ASSEMBLER) 0824 (Given - Provider: Iwona Singh RCP)1250 (Given - Provider: Iwona Singh RCP)1622 (Given - Provider: Froilan Pascual, DENTAL CHAIR ASSEMBLER)2027 (Given - Provider: Sakina Caldwell, DENTAL CHAIR ASSEMBLER) 0722 (Not Given - Provider: Sharda Harden [...] at 1200 1135 (Given - Provider: Adrian Palma, ELÍAS) 1208 (Given - Provider: Iona Sheppard, RN) 1227 (Given - Provider: Tereso Matta, RN) levothyroxine (Synthroid, Levoxyl) tablet 137 mcg 137 mcg, Oral, Every 24 hours, First dose on Fri08/04/24 at 1200, Tube feeding (TF) interaction, obtain physician order to manage, recommend holding TF for 30 minutes before and after dose. 0538 (Given - Provider: Sophy Olmos RN) 0607 (Given - Provider: Sophy Olmos RN) 0602 (Given - Provider: Karma Flores, RN) methylPREDNISolone sod suc (PF) (SOLU-Medrol) 40 MG injection 20 mg (CANCELED) 20 mg, IntraVENous, Every 12 hours, First dose on Fri08/05/24 at 1600 0430 (Given - Provider: Sophy Olmos, ELÍAS) mirabegron ER (Myrbetriq) 24 hr tablet 25 mg 25 mg, Oral, Daily, First dose on Fri08/04/24 at 1300, Do not crush, chew, or split. 0811 (Given - Provider: Adrian Palma RN) 0926 (Given - Provider: Iona Sheppard, ELÍAS) 09 (Given - Provider: Tereso Matta, ELÍAS) pantoprazole (ProtoNix) EC tablet 40 mg 40 mg, Oral, Daily before breakfast, First dose on Fri08/05/24 at 0600, Do not crush, chew, or split. 0538 (Given - Provider: Sophy Olmos RN) 0607 (Given - Provider: Sophy Olmos RN) 06 (Given - Provider: Karma Flores, ELÍAS) potassium chloride CR (Klor-Con M10) ER tablet 20 mEq 20 mEq, Oral, Every 12 hours, First dose on Fri08/04/24 at 2100, Best given with food and a glass of water to minimize gastric irritation. Do not crush or chew. 0812 (Given - Provider: Adrian Palma RN)2136 (Given - Provider: Sophy Olmos RN) 09 (Given - Provider: Iona Sheppard, ELÍAS)2038 (Given - Provider: Karma Flores, ELÍAS) 09 (Given - Provider: Tereso Matta, RN) predniSONE (Deltasone) tablet 10 mg(Linked Group 1) 10 mg, Oral, Daily, First dose on Fri08/12/24 at 0900, For 2 doses predniSONE (Deltasone) tablet 20 mg(Linked Group 1) 20 mg, Oral, Daily, First dose on Fri08/10/24 at 0900, For 2 doses 926 (Not Given - Provider: Iona Sheppard RN - Reason: Patient/family refused) 900 (Not Given - Provider: Tereso Matta, RN - Reason: Patient/family refused) sodium chloride 0.9% (NS) flush 10 mL 10 mL, IntraVENous, Every 12 hours scheduled (2 times per day), First dose on Fri08/03/24 at 2240 1157 (Not Given - Provider: Adrian Palma RN - Reason: Other - Comment: given- patient has q8 order as well)2136 (Given - Provider: Sophy Olmos RN) 925 (Given - Provider: Iona Sheppard, ELÍAS)2040 (Given - Provider: Karma Flores, ELÍAS) 09 (Given - Provider: Tereso Matta, ELÍAS) sodium chloride 0.9% (NS) flush 10 mL 10 mL, IntraVENous, Every 8 hours, First dose (after last modification) on 08/07/24 at 1145, After every IV line use 0300 (Given - Provider: Sophy Olmos RN)1136 (Given - Provider: Adrian Palma RN)2136 (Given - Provider: Sophy Olmos RN) 0424 (Given - Provider: Sophy Olmos, ELÍAS)1209 (Given - Provider: Iona Sheppard, ELÍAS)212 (Not Given - Provider: Karma Flores RN - Reason: Other) 0345 (Canceled Entry - [...] Olmos RN) 0609 (Given - Provider: Sophy Olmos, ELÍAS)1513 (Given - Provider: Iona Sheppard, ELÍAS)2300 (Given - Provider: Karma Flores, RN) 0600 (Given - Provider: Karma Flores, RN)1353 (Given - Provider: Tereso Matta, ELÍAS) traZODone (Desyrel) tablet 50 mg 50 mg, Oral, Nightly, First dose on Fri08/04/24 at 2100 2136 (Given - Provider: Sophy Olmos RN) 2039 (Given - Provider: Karma Flores, RN) PRN Medication Order 08/09/2024 08/10/2024 08/11/2024 [...] 24 hours. 1021 (Given - Provider: Tereso Matta, ELÍAS)1351 (Given - Provider: Tereso Matta, ELÍAS) albuterol (2.5 MG/3ML) 0.083% nebulizer solution 2.5 [...] Olmos RN)1208 (Given - Provider: Iona Sheppard, ELÍAS)2038 (Given - Provider: Karma Flores RN) 0602 (Given - Provider: Karma Flores RN)1021 (Given - Provider: Tereso Matta RN)1352 (Given [...] Iona Sheppard, ELÍAS)203 (Given - Provider: Karma Flores RN) 0602 (Given - Provider: Karma Flores RN)1021 (Given - Provider: Tereso Matta RN - Comment: ok per dr wan to give early) perflutren protein A microsphere (Optison) 3 mL in sodium chloride (PF) 0.9 % 10 mL IV 0-10 mL, IntraVENous, IMG once PRN, other, Suboptimal echo image, Starting on Rita 08/05/24 at 0913, For 1 dose, CV Procedural [...] and water, apply ET mix then leave [employer] TID and PRN Linked Groups Order Group [...] BE BASED ON THE PRIMARY CLINICAL RECORDS. [facility]. provides no warranty or guarantee of the accuracy or completeness of information in this document.
[2025-01-25 08:19] LABS: Hematocrit 40.4 % (37-47); Hemoglobin 12.8 g/dL (12.0-15.0); Mean Corp Hgb Conc 31.7 g/dL (32-36); Mean Corpuscular Volume 89.6 fL (81-99); Mean Platelet Vol. 10.3 fl (6.2-12.0); POSITIVE COUNT YES; Platelet Count 91 K/mm3 (150-450); RBC Distribution Width CV 14.6 % (11.6-14.6); RBC Distribution Width SD 48.1 fl (35.1-43.9); Red Blood Count 4.51 M/mm3 (4.2-5.4); White Blood Count 4.9 K/mm3 (4.4-11.0)
[2025-01-25 08:21] LABS: Scan Indicated on CBC? Y/N YES- FLAGS NOTED
[2025-01-25 08:38] LABS: Differential Comment SCANNED
[2025-01-25 08:50] LABS: AST(SGOT) 28 U/L (<=31); Alanine Aminotransfer ALT/SGPT 11 U/L (<=34); Albumin, Serum 3.8 g/dL (3.4-4.8); Alkaline Phosphatase 122 U/L (35-104); Anion Gap 11 (5-15); BUN 14 mg/dL (4-19); BUN/Creat Ratio 18.3 RATIO (10-20); Calcium,Total 9.8 mg/dL (7.6-11.0); Carbon Dioxide 29.8 mmol/L (21.0-32.0); Chloride 99 mmol/L (98-108); Globulin 3.2 g/dL (2.2-4.2); Glucose 87 mg/dL (70-99); Potassium 3.9 mmol/L (3.3-5.1)
== END ==
LOC: OLS.ACH 05:00
PROVIDERS: PCP Internal Medicine; Visit Provider Internal Medicine
DX: I11.0 Hypertensive heart disease with heart failure (principal); I50.9 Heart failure, unspecified; E03.9 Hypothyroidism, unspecified
CPT/HCPCS: 36415; 80053; 84443; 85027

== ENCOUNTER → 2025-02-22 04:00 | Outpatient (REF) | payer MEDICARE, SELFPAY ==
--- OUTSIDE RECORDS SUMMARY | 2025-02-22 03:49 | XMS RPT_ITS | CCD ---
Author Organization [facility] CliniSyvt Care Team Providers Care 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 Name Role Phone Angelo Goyal Unavailable UnavailAri Arnett Unavailable Ari Casanova Unavailable Angelo Luke Unavailable Unavaila Ari Espinoza Unavailable Kellie MCCARTY MD, DR EMILY Paul Primary Care Physician [phone] Dr. Ari Cervantes Primary Care Un jewel Negrete, Dr. Sanjuanita Rodriguez Attending UnavailJenni Girno Unavailable Alix MCCARTY MD, DR EMILY Paul Primary Care Unavailab Kristin PAREDES, WAQAS Admitting Unavailable ILAN PAREDES, WAQAS Attending Alix MCCARTY MD, DR EMILY Paul Consulting Unavailab Phuong PAREDES, DR JAZMINE Gatica Consulting Unavailable BIBIANA PAREDES, DR EMILY Paul Primary Care Unavailab Laura PAREDES, SANJUANITA Attending Unavailable BIBIANA PAREDES, DR EMILY [...] / oxyCODONE; Translations: [acetaminophen-ox ycodone] Drug Allergy [facility] (4 sources) Aspartame Drug Allergy [facility] (20 sources) Codeine; Translations: [codeine] Drug Allergy 01-19-[address] [facility] (18 sources) LORazepam; Translations: [lorazepam] Drug Allergy 01-19-[address] [facility] (20 sources) Morphine; Translations: [morphine] Drug Allergy 01-19-[address] [facility] (4 sources) PENTobarbital; Translations: [pentobarbital] Drug Allergy [facility] (4 sources) zolpidem; Translations: [zolpidem] Drug Allergy [facility] (2 sources) Tape, plastic Allergy to substance Eruption of skin (disorder) [facility] (14 sources) Aspartame; Translations: [ASPARTAME] Drug Allergy 09-21-19 Other: See Comments [facility] (14 sources) Aspirin / oxyCODONE Hydrochloride / oxyCODONE terephthalate; Translations: [OXYCODONE [id number]-SVI ] Drug Allergy 01-19-20 Unknown [facility] (18 sources) DULoxetine; Translations: [DULOXETINE] Drug Allergy 01-19-20 Mental Status Change, Unknown [facility] (14 sources) Adhesive Tape-Silicones; Translations: [ADHESIVE TAPE-SILICONES] Drug Allergy 01-19-20 Itching [facility] (4 sources) Aspartame Drug Allergy 08-04-19 25 [facility] (4 sources) Lorazepam Propensity to adverse reactions 08-04-19 25 [facility] (4 sources) oxyCODONE Drug Allergy 08-04-19 25 [facility] (4 sources) Wound Dressing Adhesive Propensity to adverse reactions 08-04-19 25 [facility] (1 source) Adhesive Tape Drug allergy (disorder) [...] gram(s), 3 Refill(s), Pharmacy: [facility]), 152, cm, 02/21/22 13:28:00 EST, [...] QID, # 30 EA, 3 Refill(s), Pharmacy: [facility] #[id number], 155, cm, 02/12/22 22:07:00 EST, Height, kg, 02/12/22 22:07:00 EST, Dosing Weight Start Date: 02/16/22 Status: Ordered Start: 10-31-2020 take 1 dose by inhal ation four times daily albuterol-ipratropium 2.5 mg-0.5 mg/3 mL inhalation solution Dose = 3 mL, Inhalation, QID, # 30 EA, 3 Refill(s), Pharmacy: [facility] #[id number], 152, cm, 09/05/20 14:17:00 EDT, Height, kg, [...] tab(s), 0 Refill(s), 02/22/22 13:58:00 EST, Pharmacy: [facility] #[id number], 155, cm, 02/12/22 22:07:00 EST, Height, 102.3 Start Date: 02/16/22 Stop Date: 02/22/22 Status: Ordered ampicillin 500 mg oral capsule (1 source) Penicillin-class Antibacterial Start: 01-22-2021 End: 01-29-2021 ampicillin 500 mg oral capsule Dose : 500 mg = 1 cap(s), Oral, QID, X 7 day(s), # 28 cap(s), 0 Refill(s), 01/29/21 13:28:00 EST, Pharmacy: [facility] #[id number], Recurrent UTI OAB (overactive bladder), 155, cm, [...] tab(s), 0 Refill(s), [facility]), 155, cm, 01/23/22 15:18:00 EST, Height, kg, 01/23/22 15:18:00 EST, Dosing Weight Start Date: 01/28/22 Status: Ordered Start: 10-08-2020 take 1 tablet by shahzad three times daily baclofen 10 mg oral tablet See Instructions, TAKE 1 TABLET BY MOUTH THREE TIMES DAILY, # 90 tab(s), 2 Refill(s), [id number], 152, cm, 09/05/20 14:17:00 EDT, Height, kg, 09/05/20 14:17:00 EDT, Dosing Weight Start Date: 10/08/20 Status: Ordered breath-actuated 120 actuat beclomethasone dipropionate 0.04 mg/actuat metered dose inhaler (18 sources) Corticosteroid Start: 06-11-2023 take 1 dose by inhalation twice daily Qvar Redihaler 40 mcg/inh inhalation aerosol Dose = 1 puff(s), Inhalation, BID, # 10.6 gram(s), 4 Refill(s), Pharmacy: [facility], 152.4, cm, 05/15/23 13:11:00 EST, Height, [...] 30 gram(s), 3 Refill(s), Pharmacy: [id number], 152, cm, 02/08/21 13:40:00 EST, Height, 101.2, kg, 02/08/21 13:40:00 EST, Dosing Weight Start Date: 06/12/21 Status: Ordered Start: 09-05-2020 clotrimazole 1 % topical cream Apply 1 vidhya, Topical, BID, PRN Rash, # 30 gram(s), 0 Refill(s), Pharmacy: [facility] #[id number], 152, cm, 09/05/20 14:17:00 EDT, Height, 97.2, [...] qDay, # 30 cap(s), 1 Refill(s), Pharmacy: [facility] #[id number], Medicare annual wellness visit, subsequent COPD (chronic [...] 03/06/20 Status: Ordered take 1 capsule by [facility] once daily esomeprazole magnesium (NEXIUM ORAL) Take 1 capsule by mouth once daily. 0 Active Eucerin topical cream (1 source) Start: 01-23-2022 Eucerin topica l cream Apply 1 vidhya, Topical, BID, PRN as needed for dry skin, # 120 gram(s), 0 Refill(s), Pharmacy: [facility], Cream, 155, cm, 01/23/22 15:18:00 EST, Height, [...] DAILY, # 31.8 gram(s), 5 Refill(s), Pharmacy: [facility] #[id number], 152, cm, 09/05/20 14:17:00 EDT, Height, kg, 09/05/20 14:17:00 EDT, Dosing Weight Start Date: 10/12/20 Status: Ordered 120 actuat fluticasone propionate 0.044 mg/actuat metered dose inhaler (3 sources) Corticosteroid Start: 06-12-2022 Flovent HFA 44 mcg/inh inhalation aerosol 2 inh, Inhalation, BID, # 31.8 gram(s), 11 Refill(s), [facility]acy: [facility]), 152.4, cm, 05/14/22 16:04:00 EST, [...] BID, # 31.8 gram(s), 3 Refill(s), Pharmacy: [facility], 152, cm, 07/12/21 13:08:00 EDT, [...] qDay, # 90 tab(s), 3 Refill(s), Pharmacy: [facility], 152, cm, 07/12/21 13:08:00 EDT, Height, kg, 07/12/21 13:08:00 EDT, Dosing Weight Start Date: 08/07/21 Status: Ordered Start: 10-26-2020 take 1 tablet by shahzad once daily labetalol 200 mg oral tablet See Instructions, TAKE 1 TABLET BY MOUTH EVERY DAY, # 90 tab(s), 1 Refill(s), Pharmacy: [facility] #[id number], 152, cm, 09/05/20 14:17:00 EDT, Height, kg, [...] qDay, # 100 tab(s), 3 Refill(s), Pharmacy: [facility]), 155, cm, 07/25/22 13:05:00 [...] FRIDAY, # 79 tab(s), 3 Refill(s), Pharmacy: [facility] #[id number], 152, cm, 09/05/20 14:17:00 EDT, Height, kg, [...] tab(s), 1 Refill(s), [facility]), 155, cm, 01/23/22 15:18:00 EST, Height, kg, 01/23/22 15:18:00 EST,... Start Date: 01/28/22 Status: Ordered Start: 12-19-2020 take 1 tablet by shahzad th three times daily before mealtime metoclopramide 5 mg oral tablet See Instructions, TAKE 1 TABLET BY MOUTH THREE TIMES DAILY BEFORE MEALS, # 270 tab(s), 0 Refill(s), Pharmacy: [facility] #[id number], 152, cm, 12/11/20 14:39:00 EDT, Height, kg, [...] Active Start: 08-07-2021 take 2 tablets by [facility] once daily Myrbetriq 25 mg oral tablet, extended release 2 tab(s), Oral, qDay, # 180 tab(s), 3 Refill(s), Pharmacy: [facility], 152, cm, 07/12/21 13:08:00 EDT, Height, kg, 07/12/21 13:08:00 EDT, Dosing Weight Start Date: 08/07/21 Status: Ordered Start: 12-11-2020 take 2 tablets by [facility] once daily Myrbetriq 25 mg oral tablet, extended release See Instructions, TAKE 2 TABLET BY MOUTH EVERY DAY, # 90 tab(s), 1 Refill(s), other reason (Rx), Dosing Weight Start Date: 12/11/20 Status: Ordered Start: 12-11-2020 take 25 mg by mouth twice gio y MYRBETRIQ 25 mg Tb24 Take 25 mg by mouth two times a day. 12/11/2020 Active Kocfk-0-QAD-EPA-Fish Oil (FI SH OIL) 1,000 mg (120 mg-180 mg) cap (13 sources) take 1 capsule by mouth twice daily Sbczl-4-YCE-EPA-Fish Oil (FISH OIL) 1,000 mg (120 mg-180 mg) cap Take 4 g by mouth two times a day. Active take 1 capsule by mouth twice da horace Ozzlc-5-SIO-EPA-Fish Oil (FISH OIL) 1,000 mg (120 mg-180 [...] Ordered Start: 01-16-2022 take 1 capsule by [facility] once daily at bedtime omeprazole 20 mg oral delayed release capsule 1 cap(s), Oral, qHS, # 90 cap(s), 3 Refill(s), Pharmacy: [facility]), 155, cm, 11/15/21 13:53:00 EDT, Height, kg, 11/15/21 13:53:00 EDT, Dosing Weight Start Date: 01/16/22 Status: Ordered Start: 12-09-2019 omeprazole 20 mg oral delayed release capsule Dose : 20 mg = 1 cap(s), Oral, qHS, # 90 cap(s), 4 Refill(s), Pharmacy: [facility] #[id number], 155, cm, 10/18/19 15:42:00 EDT, Height, kg, [...] cap(s), 0 Refill(s), 02/17/22 13:59:00 EST, Pharmacy: [facility] #[id number], 155, cm, 02/12/22 22:07:00 EST, Height Start [...] tab(s), 0 Refill(s), 02/25/22 14:00:00 EST, Pharmacy: [facility] #[id number], 155, cm, 02/12/22 22:07:00 EST, Height Start [...] EA, 1 Refill(s), Pharmacy: [facility]), 155, cm, 01/23/22 15:18:00 EST, [...] WHEEZING, # 6.7 gram(s), 3 Refill(s), Pharmacy: [facility] #[id number], 155, cm, 03/13/20 14:45:00 EST, Height, kg, 03/13/20 14:45:00 EST, Dosing Weight Start Date: 07/04/20 Status: Ordered azithromycin (Zithromax) 500 mg in sodium chloride 0.9 % 250 mL IVPB (ADD-Lawrence) (2 sources) Start: 08-04-2024 End: 08-05-2024 500 mg, IntraVENous, Administer over 60 Minutes, Every 24 hours, First dose on Fri08/04/24 at 1100, ADD-Lawrence bag, Suspected Indication (Select all that apply): [...] prophylaxis, # 90 cap(s), 3 Refill(s), Pharmacy: [facility] #[id number], 155, cm, 01/22/21 13:03:00 EST, Height, 100.5, kg, 01/22/21 13:03:00 EST, Dosing Weight Start Date: 01/22/21 Status: Ordered docusate sodium 50 mg / sennosides, alf 8.6 mg oral tablet (6 sources) Start: [...] anxiety, # 120 cap(s), 5 Refill(s), Pharmacy: [facility], 152, cm, 10/28/22 14:22:00 [...] DAILY, # 270 cap(s), 1 Refill(s), Pharmacy: [facility] #[id number], 152, cm, 09/05/20 14:17:00 EDT, Height, kg, [...] reach optimal image enhancement polyethylene glycol 3350 31263 mg powder for oral solution (2 sources) [...] Start: 01-22-2022 take 1 capsule by [facility] twice daily potassium chloride 10 mEq oral capsule, extended release 1 cap(s), Oral, BID, # 180 cap(s), 3 Refill(s), [facility]), 155, cm, 11/15/21 13:53:00 EDT, Height, kg, 11/15/21 13:53:00 EDT, Dosing Weight Start Date: 01/22/22 Status: Ordered Start: 03-13-2020 potassium chlo ride 10 mEq oral capsule, extended release Dose : 10 mEq = 1 cap(s), Oral, BID, # 180 cap(s), 3 Refill(s), Pharmacy: [facility] #[id number], 155, cm, 03/13/20 14:45:00 EST, Height, kg, 03/13/20 14:45:00 EST, Dosing Weight Start Date: 03/13/20 Status: Ordered take 1 tablet by [facility] twice daily potassium chloride ER (KLOR-CON) [...] and water, apply ET mix then leave WINDOWS 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 PLEASE CALL OUR OFFICE AT [phone] for our [place] office location or [phone] for our [place] location, IF YOU HAVE NOT RECEIVED YOUR [...] to make improvements. COVID-19 VACCINATION INFORMATION: PH. [phone] [email or web address] S/VACCINE [facility] Central Scheduling [phone] [facility] Sleep Scheduling [phone] Normal [facility] Office Visiton 09-01-2024 Follow-up visit [id number] Krish Peralta 1940 F Date Provider Department Center 09/01/2024 [facility]E [facility] None No family history on file Level of Service:03321 ID OFFICE/OUTPATIENT ESTABLISHED MOD MDM 30 MIN Reason for Visit and Comments: Hospital Follow-up [832] COPD [313] - PNEUMONIA, HFLU, ARF,-O2 @ NIGHT PRN Normal [facility] Progress Noteon 09-01-2024 Progress Note [facility] [address] [place] [address] Date of Service: 09/01/2024 Visit type: An [...] Followed by pulmonary Presents today accompanied by cdl driver, Asim, from [facility] where patient resides. Patient is known as [...] Moderately i (more content not included)... Normal [facility] Basic Metabolic Profile (BMP )on 08-18-2024 BUN/CRE 10.4 RATIO Normal 10-20 [facility] Comment on above: Order Comment: 103.1 Performed By: #### L 100.0500, L500.2500 #### [facility] [address] [place], [address] Calcium [Mass/Vol] 9.4 mg/dL Normal 7.6-11.0 [facility] Comment on above: Order Comment: 103.1 Performed By: #### L 100.0500, L500.2500 #### [facility] [address] [place], [address] Chloride [Moles/Vol] 100 mmol/L Normal 98-108 [facility] Comment on above: Order Comment: 103.1 Performed By: #### L 100.0500, L500.2500 #### [facility] [address] [place], [address] CO2 [Moles/Vol] 28.5 mmol/L Normal 21.0-32.0 [facility] Comment on above: Order Comment: 103.1 Performed By: #### L 100.0500, L500.2500 #### [facility] [address] [place], [address] Creatinine [Mass/Vol] 0.84 mg/dL Normal 0.70-1.20 [facility] Comment on above: Order Comment: 103.1 Performed By: #### L 100.0500, L500.2500 #### [facility] [address] [place], [address] GAP 10 Normal 5-15 [facility] Comment on above: Order Comment: 103.1 Performed By: #### L 100.0500, L500.2500 #### [facility] [address] [place], [address] GFR/1.73 sq M.predicted among non-blacks MDRD (S/P/Bld) [Vol rate/Area] 68 mL/min/{1.73_m2} Normal >60 [facility] Comment on above: Order Comment: 103.1 Result Comment: mL/m in/1.73m2 CKD-EPI Creatinine Equation (2020) Performed By: #### L 100.0500, L500.2500 #### [facility] [address] [place], [address] Glucose [Mass/Vol] 107 mg/dL High 70-99 [facility] Comment on above: Order Comment: 103.1 Performed By: #### L 100.0500, L500.2500 #### [facility] [address] [place], [address] Potassium [Moles/Vol] 3.9 mmol/L Normal 3.3-5.1 [facility] Comment on above: Order Comment: 103.1 Performed By: #### L 100.0500, L500.2500 #### [facility] [address] [place], [address] Sodium [Moles/Vol] 139 mmol/L Normal 133-145 [facility] Comment on above: Order Comment: 103.1 Performed By: #### L 100.0500, L500.2500 #### [facility] [address] [place], [address] Urea nitrogen [Mass/Vol] 9 mg/dL Normal 4-19 [facility] Comment on above: Order Comment: 103.1 Performed By: #### L 100.0500, L500.2500 #### [facility] [address] [place], [address] CBC-Complete Blood Cnt No Di ffon 08-18-2024 Erythrocyte distribution width (RBC) [Ratio] 14.9 % High 11.6-14.6 [facility] Comment on above: Order Comment: 103.1 Performed By: #### L 400.0001, M1.0 #### [facility] [address] [place], [address] Hematocrit (Bld) [Volume fraction] 39.8 % Normal 37-47 [facility] Comment on above: Order Comment: 103.1 Performed By: #### L 400.0001, M1.0 #### [facility] [address] [place], Hemoglobin (Bld) [Mass/Vol] 12.8 g/dL Normal 12.0-15.0 [facility] Comment on above: Order Comment: 103.1 Performed By: #### L 400.0001, M1.0 #### [facility] [address] [place], [address] MCH (RBC) [Entitic mass] 28.7 pg Normal 27.0-32.0 [facility] Comment on above: Order Comment: 103.1 Performed By: #### L 400.0001, M1.2199 #### [facility] [address] [place], [address] MCHC (RBC) [Mass/Vol] 32.2 g/dL Normal 32-36 [facility] Comment on above: Order Comment: 103.1 Performed By: #### L 400.0001, #### [facility] [address] [place], [address] MCV (RBC) [Entitic vol] 89.2 fL Normal 81-[address] [facility] Comment on above: Order Comment: 103.1 Performed By: #### L 400.0001, #### [facility] [address] [place], [address] Platelet mean volume (Bld) [Entitic vol] 11.2 fL Normal 6.2-12.0 [facility] Comment on above: Order Comment: 103.1 Performed By: #### L 400.0001, #### [facility] [address] [place], [address] Platelets (Bld) [#/Vol] 100 10*3/uL Low 150-450 [facility] Comment on above: Order Comment: 103.1 Performed By: #### L 400.0001, #### [facility] [address] [place], [address] RBC (Bld) [#/Vol] 4.46 10*6/uL Normal 4.2-5.4 [facility] Comment on above: Order Comment: 103.1 Performed By: #### L 400.0001, #### [facility] [address] [place], [address] RDW SD 48.4 fl High 35.1-43.9 [facility] Comment on above: Order Comment: 103.1 Performed By: #### L 400.0001, #### [facility] [address] [place], [place], [address] WBC (Bld) [#/Vol] 6.4 10*3/uL Normal 4.4-11.0 [facility] Comment on above: Order Comment: 103.1 Performed By: #### L 400.0001, M100.0 #### [facility] [address] [place], [address] 36on 08-13-2024 36 COPD Navigator Note Called patient on home phone. No answer. Left Voicemail. [facility] [phone] 08-11-2024 [id number] Next Site of Care Admission Date: 08/03/2024 04:21 PM Patient Name: KRISH PERALTA Location: [address] CARDIAC U/[facility] [id number] A Date of : 1940 ------- Placement Information ------- Referral Type:Detention ICF - Return Referral ID:[id number] Provider Name:Tomás Farley Colatris. Address 1:[address] [facility] Address 2: City:[place] Selection Factors:Returning to Facility State:[place] Normal [facility] [phone] Discharge med list transmitted to [facility] via [facility]port per TCC request. [facility] [id number] Rounds this am DCP: DC today Apostolic supervisor shop time scheduled for 430 Facility notified RN notified with time and P# for report ANTIQUER tasked to send DC packet and MAR to acility [facility] BASIC METABOLIC PANELon 06-0 Anion gap [Moles/Vol] 10 mmol/L Normal 3-13 [facility] Comment on above: Performed By: #### L AB15 ####Hot Tar Roofer Helper: JOHAN BHANDARI ([phone])[facility] [place] [address] Calcium [Mass/Vol] 9.6 mg/dL Normal 8.8-10.0 [facility] Comment on above: Performed By: #### L AB15 ####Hot Tar Roofer Helper: JOHAN BHANDARI ([phone])[facility] ([facility])[address] [place] [address] [place] Chloride [Moles/Vol] 100 mmol/L Normal 98-[address] [facility] Comment on above: Performed By: #### L AB15 ####Hot Tar Roofer Helper: JOHAN BHANDARI ([phone])[facility] ([facility])[address] [place] [address] [place] CO2 [Moles/Vol] 27 mmol/L Normal 23-31 [facility] Comment on above: Performed By: #### L AB15 ####Hot Tar Roofer Helper: JOHAN BHANDARI ([phone])[facility] ([facility])[address] Creatinine [Mass/Vol] 0.75 mg/dL Normal 0.57-1.11 [facility] Comment on above: Performed By: #### L AB15 ####Hot Tar Roofer Helper: JOHAN BHANDARI ([phone])[facility] ([facility] [place] [address] [place] GLOMERULAR FILTRATION RATE ML/MIN/1.73 SQ M.PREDICTED 78.1 mL/min/1.73m*2 Normal >60.0 [facility] Comment on above: Result Comment: Calc ulation based on the Chronic Kidney Disease Epidemiology Collaboration (CKD-EPI) equation refit without adjustment for race Performed By: #### L AB15 ####Hot Tar Roofer Helper: JOHAN BHANDARI ([phone])[facility] ([facility])[address] Glucose [Mass/Vol] 78 mg/dL Low 82-115 [facility] Comment on above: Performed By: #### L AB15 ####Hot Tar Roofer Helper: JOHAN BHANDARI ([phone])[facility] ([facility])[address] Potassium [Moles/Vol] 4.1 mmol/L Normal 3.5-5.1 [facility] Comment on above: Result Comment: [facility] potassium values may be up to 0.5 mmol/L lower than serum values. Performed By: #### L AB15 ####Hot Tar Roofer Helper: JOHAN BHANDARI ([phone])[facility] ([facility])[address] Sodium [Moles/Vol] 137 mmol/L Normal 136-145 [facility] Comment on above: Performed By: #### L AB15 ####Hot Tar Roofer Helper: JOHAN BHANDARI ([phone])[facility] ([facility])[address] Urea nitrogen [Mass/Vol] 18 mg/dL Normal 9-23 [facility] Comment on above: Performed By: #### L AB15 ####Hot Tar Roofer Helper: JOHAN BHANDARI ([phone])[facility] ([facility])[address] Basic metabolic 1998 panelon 08-11-2024 Anion gap [Moles/Vol] 10 mmol/L 3 - 13 mmol/L [facility] Calcium [Mass/Vol] 9.6 mg/dL 8.8 - 10. 0 mg/dL [facility] Chloride [Moles/Vol] 100 mmol/L 98 - 10 7 mmol/L [facility] CO2 [Moles/Vol] 27 mmol/L 23 - 31 mmol/L [facility] Creatinine [Mass/Vol] 0.75 mg/dL 0.57 - 1.11 mg/dL [facility] GFR/1.73 sq M.predicted (S/P/Bld) [Vol rate/Area] 78.1 mL/min - PINF [facility] Comment on above: Calculation based on the Chronic Kidney Disease Epidemiology Collaboration (CKD-EPI) equation refit without adjustment for race Glucose [Mass/Vol] 78 mg/dL Low 82 - 115 mg/dL [facility] Interpretation and review of laboratory results Abnormal [facility] Potassium [Moles/Vol] 4.1 mmol/L 3.5 - 5.1 mmol/L [facility] Comment on above: Plasma potassium gustavo ues may be up to 0.5 mmol/L lower than serum values. Sodium [Moles/Vol] 137 mmol/L 136 - 145 mmol/L [facility] Urea nitrogen [Mass/Vol] 18 mg/dL 9 - 23 mg/dL [facility] CBC W Auto Differential pane l (Bld)on 08-11-2024 Basophils (Bld) [#/Vol] 0 10*3/uL 0.0 - 0.2 10*3/uL [facility] Basophils/100 WBC (Bld) 0.1 % 0.0 - 2.0 % [facility] Eosinophils (Bld) [#/Vol] 0.1 10*3/uL 0.0 - 0.5 10*3/uL [facility] Eosinophils/100 WBC (Bld) 1.5 % 0.0 - 6.0 % [facility] Erythrocyte distribution width (RBC) [Ratio] 13.9 % 11.5 - 15.0 % [facility] Hematocrit (Bld) [Volume fraction] 42.1 % 35.0 - 47.0 % [facility] Hemoglobin (Bld) [Mass/Vol] 13.7 g/dL 11.7 - 16.0 g/dL [facility] Immature granulocytes (Bld) [#/Vol] 0.1 10*3/uL High NINF - 0.1 10*3/uL [facility] Immature granulocytes/100 WBC (Bld) 1.2 % 0.0 - 2.0 % [facility] Interpretation and review of laboratory results Abnormal [facility] IPF 1 [facility] Lymphocytes (Bld) [#/Vol] 1.5 10*3/uL 1.0 - 4.3 10*3/uL [facility] Lymphocytes/100 WBC (Bld) 20.2 % 15.0 - 45.0 % [facility] MCH (RBC) [Entitic mass] 28.7 pg 26. 0 - 34.0 pg [facility] MCHC (RBC) [Mass/Vol] 32.5 % 30.5 - 36.0 % [facility] MCV (RBC) [Entitic vol] 88.1 fL 77.0 - 99.0 fL [facility] Monocytes (Bld) [#/Vol] 0.9 10*3/uL 0.0 - 0.9 10*3/uL [facility] Monocytes/100 WBC (Bld) 11.8 % 5.0 - 13.0 % [facility] Neutrophils (Bld) [#/Vol] 4.9 10*3/uL 1.8 - 7.5 10*3/uL [facility] Neutrophils/100 WBC (Bld) 65.2 % 38.0 - 82.0 % [facility] Nucleated RBC/100 WBC (Bld) [Ratio] 0 % [facility] Platelet mean volume (Bld) [Entitic vol] 9.1 fL 9.0 - 12.7 fL [facility] Platelets (Bld) [#/Vol] 114 10*3/uL Low 140 - 440 10*3/uL [facility] RBC (Bld) [#/Vol] 4.78 10*6/uL 3.80 - 5.2 0 10*6/uL [facility] WBC (Bld) [#/Vol] 7.5 10*3/uL 3.6 - 10.7 10*3/uL [facility] CBC WITH AUTO DIFFERENTIALon 08-11-2024 Basophils (Bld) [#/Vol] 0.0 10*3/uL Normal 0.0-0.2 [facility] Comment on above: Performed By: #### L [id number] ####Hot Tar Roofer Helper: JOHAN BHANDARI ([phone])[facility] [place] (SBHLAB)[address] Basophils/100 WBC (Bld) 0.1 % Normal 0.0-2.0 S [facility] Comment on above: Performed By: #### L [id number] ####Hot Tar Roofer Helper: JOHAN BHANDARI ([phone])[facility] [place] (SBHLAB)[address] Eosinophils (Bld) [#/Vol] 0.1 10*3/uL Normal 0.0-0.5 [facility] Comment on above: Performed By: #### L [id number] ####Hot Tar Roofer Helper: JOHAN BHANDARI ([phone])[facility] [place] (SBHLAB)[address] [place] [address] Eosinophils/100 WBC (Bld) 1.5 % Normal 0.0-6.0 [facility] Comment on above: Performed By: #### L [id number] ####Hot Tar Roofer Helper: JOHAN BHANDARI ([phone])[facility] [place] (SBHLAB)[address] Erythrocyte distribution width (RBC) [Ratio] 13.9 % Normal 11.5-15.0 [facility] Comment on above: Performed By: #### L [id number] ####Hot Tar Roofer Helper: JOHAN BHANDARI ([phone])[facility] [place] (SBHLAB)[address] Hematocrit (Bld) [Volume fraction] 42.1 % Normal 35.0-47.0 [facility] Comment on above: Performed By: #### L [id number] ####Hot Tar Roofer Helper: JOHAN BHANDARI ([phone])[facility] (SBHLAB)[address] Hemoglobin (Bld) [Mass/Vol] 13.7 g/dL Normal 11.7-16.0 [facility] Comment on above: Performed By: #### L [id number] ####Hot Tar Roofer Helper: JOHAN BHANDARI ([phone])[facility] [place] (SBHLAB)[address] IMMATURE GRANS % 1.2 % Normal 0.0-2.0 [facility] Comment on above: Performed By: #### L [id number] ####Hot Tar Roofer Helper: JOHAN BHANDARI ([phone])[facility] (SBAB)[address] IMMATURE GRANS ABSOLUTE 0.1 10*3/uL High <0.1 [facility] Comment on above: Performed By: #### L [id number] ####Hot Tar Roofer Helper: JOHAN BHANDARI ([phone])[facility] (SBHLAB)[address] IPF 1 Normal [facility] Comment on above: Performed By: #### L [id number] ####Hot Tar Roofer Helper: JOHAN BHANDARI ([phone])[facility] (SBHLAB)[address] Lymphocytes (Bld) [#/Vol] 1.5 10*3/uL Normal 1.0-4.3 [facility] Comment on above: Performed By: #### L [id number] ####Hot Tar Roofer Helper: JOHAN BHANDARI ([phone])[facility] (SBHLAB)[address] Lymphocytes/100 WBC (Bld) 20.2 % Normal 15.0-45.0 [facility] Comment on above: Performed By: #### L [id number] ####Hot Tar Roofer Helper: JOHAN BHANDARI ([phone])[facility] [place] (SBHLAB)[address] MCH (RBC) [Entitic mass] 28.7 pg Normal 26.0-34.0 [facility] Comment on above: Performed By: #### L [id number] ####Hot Tar Roofer Helper: JOHAN BHANDARI ([phone])[facility] [place] (SBHLAB)[address] MCHC 32.5 % Normal 30.5-36.0 [facility] Comment on above: Performed By: #### L [id number] ####Hot Tar Roofer Helper: JOHAN BHANDARI ([phone])[facility] [place] (SBHLAB)[address] [place] [address] MCV (RBC) [Entitic vol] 88.1 fL Normal 77.0-99.0 S [facility] Comment on above: Performed By: #### L [id number] ####Hot Tar Roofer Helper: JOHAN BHANDARI ([phone])[facility] [place] (SBHLAB)[address] [place] [address] Monocytes (Bld) [#/Vol] 0.9 10*3/uL Normal 0.0-0.9 [facility] Comment on above: Performed By: #### L [id number] ####Hot Tar Roofer Helper: JOHAN BHANDARI ([phone])[facility] [place] (SBHLAB)[address] [place] [address] Monocytes/100 WBC (Bld) 11.8 % Normal 5.0-13.0 S [facility] Comment on above: Performed By: #### L [id number] ####Hot Tar Roofer Helper: JOHAN BHANDARI ([phone])[facility] [place] (SBHLAB)[address] [place] [address] NEUTROPHILS ABSOLUTE 4.9 10*3/uL Normal 1.8-7.5 [facility] Comment on above: Performed By: #### L [id number] ####Hot Tar Roofer Helper: JOHAN BHANDARI ([phone])[facility] [place] (SBHLAB)[address] Neutrophils/100 WBC (Bld) 65.2 % Normal 38.0-82.0 [facility] Comment on above: Performed By: #### L [id number] ####Hot Tar Roofer Helper: JOHAN BHANDARI ([phone])[facility] [place] (SBHLAB)[address] NRBC 0.0 /100 WBCs Normal 0.0-2.0 [facility] Comment on above: Performed By: #### L [id number] ####Hot Tar Roofer Helper: JOHAN BHANDARI ([phone])[facility] (SBHLAB)[address] Platelet mean volume (Bld) [Entitic vol] 9.1 fL Normal 9.0-12.7 [facility] Comment on above: Performed By: #### L [id number] ####Hot Tar Roofer Helper: JOHAN BHANDARI ([phone])[facility] (SB[facility]AB)[address] Platelets (Bld) [#/Vol] 114 10*3/uL Low 140-440 [facility] Comment on above: Performed By: #### L [id number] ####Hot Tar Roofer Helper: JOHAN BHANDARI ([phone])[facility] [place] (SBHLAB)[address] [place] [address] [place] RBC (Bld) [#/Vol] 4.78 10*6/uL Normal 3.80-5.20 [facility] Comment on above: Performed By: #### L [id number] ####Hot Tar Roofer Helper: JOHAN BHANDARI ([phone])[facility] (SBHLAB)[address] [place] [address] [place] WBC (Bld) [#/Vol] 7.5 10*3/uL Normal 3.6-10.7 [facility] Comment on above: Performed By: #### L [id number] ####Hot Tar Roofer Helper: JOHAN BHANDARI ([phone])[facility] (SBHLAB)[address] Nursing Noteon 08-11-2024 Nursing Note Patient sent with belongings with transport to facility at this time. Normal [facility] Nursing Note Report called to facility [facility], hallway 100. RN familiar with patient. Waiting on transport. Normal [facility] Progress Noteon 08-11-2024 Progress Note PHYSICAL THERAPY [facility] Treatment Note Name/MRN: Krish Peralta ([id number]) Date of : 1940 Age: 83 y.o. Room[facility]Bed: [facility] A Visit #: 5 out of 8 Discharge Recommendation: Residential Facility Equipment Needed: No Assessment Pt continues to make good overall progress towards established therapy goals this date. Remains limited by SOB and fatigue. Pt completed STS transfers with fww at [facility], Gait training with fww completed at [facility]/SBA. Pt tolerated all activity well and gave [...] Pt completed gait training with fww at [facility] progressing to SBAx1. Cues for proper foot [...] 10 Minutes (gait x1) Chuck Ruvalcaba, PT [facility] Progress Note [facility] Pulmonary Medicine [address] [place] [id number] Patient - Krish Peralta, Age - 83 [...] data in the 24 hours ending 08/11/24 0980 Exam General appearance: Awake and alert intermittently [...] from pulmonary standpoint Darrick Marcum Pulmonary Medicine [facility] [1] amLODIPine, 5 mg, Oral, q24h enoxaparin, 30 mg, SubCUTAneous, 2 times per day escitalopram, 10 mg, Oral, Nightly furosemide, 20 mg, Oral, BID ipratropium-albuterol , 1 ampule, Nebulization, q4h WA labetalol, 200 mg, Oral, q24h levothyroxine, 137 mcg, Oral, q24h aydee (more content not included)... Normal [facility] 30on 08-10-2024 30 Problem: Knowledge Deficit Goal: Patient/family/caregi krysta demonstrates understanding of disease process, treatment plan, medications, and discharge instructions Outcome: Progressing Problem: Potential for Compromised Skin Integrity Goal: Skin Integrity is Maintained or Improved Outcome: Progressing Problem: Urinary Incontinence Goal: Perineal skin integrity is maintained or improved Outcome: Progressing Normal [facility] 30 Problem: Knowledge Deficit Goal: Patient/family/caregi krysta [...] Sophy Olmos RN Outcome: Progressing Normal [facility] 30 Problem: Knowledge Deficit Goal: Patient/family/caregi krysta [...] Promote nutritional intake Outcome: Progressing Normal [facility] [id number] 08-10-2024 [id number] COPD Navigator Note Introduced myself and explained [...] scheduling hospital follow-up with pulmonary. Normal [facility] CBC W Auto Differential pane l (Bld)on 08-10-2024 Basophils (Bld) [#/Vol] 0 10*3/uL 0.0 - 0.2 10*3/uL [facility] Basophils/100 WBC (Bld) 0.1 % 0.0 - 2.0 % [facility] Eosinophils (Bld) [#/Vol] 0 10*3/uL 0.0 - 0.5 10*3/uL [facility] Eosinophils/100 WBC (Bld) 0.2 % 0.0 - 6.0 % [facility] Erythrocyte distribution width (RBC) [Ratio] 13.8 % 11.5 - 15.0 % [facility] Hematocrit (Bld) [Volume fraction] 41.1 % 35.0 - 47.0 % [facility] Hemoglobin (Bld) [Mass/Vol] 13.3 g/dL 11.7 - 16.0 g/dL [facility] Immature granulocytes (Bld) [#/Vol] 0.1 10*3/uL High NINF - 0.1 10*3/uL [facility] Immature granulocytes/100 WBC (Bld) 1.5 % 0.0 - 2.0 % [facility] Interpretation and review of laboratory results Abnormal [facility] IPF 1 [facility] Lymphocytes (Bld) [#/Vol] 1.4 10*3/uL 1.0 - 4.3 10*3/uL [facility] Lymphocytes/100 WBC (Bld) 15.4 % 15.0 - 45.0 % [facility] MCH (RBC) [Entitic mass] 28.7 pg 26. 0 - 34.0 pg [facility] MCHC (RBC) [Mass/Vol] 32.4 % 30.5 - 36.0 % [facility] MCV (RBC) [Entitic vol] 88.6 fL 77.0 - 99.0 fL [facility] Monocytes (Bld) [#/Vol] 1 10*3/uL High 0.0 - 0.9 10*3/uL [facility] Monocytes/100 WBC (Bld) 10.3 % 5.0 - 13.0 % [facility] Neutrophils (Bld) [#/Vol] 6.7 10*3/uL 1.8 - 7.5 10*3/uL [facility] Neutrophils/100 WBC (Bld) 72.5 % 38.0 - 82.0 % [facility] Nucleated RBC/100 WBC (Bld) [Ratio] 0 % [facility] Platelet mean volume (Bld) [Entitic vol] 9.1 fL 9.0 - 12.7 fL [facility] Platelets (Bld) [#/Vol] 133 10*3/uL Low 140 - 440 10*3/uL [facility] RBC (Bld) [#/Vol] 4.64 10*6/uL 3.80 - 5.2 0 10*6/uL [facility] WBC (Bld) [#/Vol] 9.2 10*3/uL 3.6 - 10.7 10*3/uL [facility] CBC WITH AUTO DIFFERENTIALon 08-10-2024 Basophils (Bld) [#/Vol] 0.0 10*3/uL Normal 0.0-0.2 [facility] Comment on above: Performed By: #### L [id number] ####Hot Tar Roofer Helper: JOHAN BHANDARI ([phone])[facility] (SBAB)[address] [place] [address] Basophils/100 WBC (Bld) 0.1 % Normal 0.0-2.0 S [facility] Comment on above: Performed By: #### L [id number] ####Hot Tar Roofer Helper: JOHAN BHANDARI ([phone])[facility] (SB[facility]AB)[address] Eosinophils (Bld) [#/Vol] 0.0 10*3/uL Normal 0.0-0.5 [facility] Comment on above: Performed By: #### L [id number] ####Hot Tar Roofer Helper: JOHAN BHANDARI ([phone])[facility] (SBHLAB)[address] [place] [address] [place] Eosinophils/100 WBC (Bld) 0.2 % Normal 0.0-6.0 [facility] Comment on above: Performed By: #### L [id number] ####Hot Tar Roofer Helper: JOHAN WATTSCANDY ([phone])[facility] (SBAB)[address] Erythrocyte distribution width (RBC) [Ratio] 13.8 % Normal 11.5-15.0 [facility] Comment on above: Performed By: #### L [id number] ####Hot Tar Roofer Helper: JOHAN WATTSCANDY ([phone])[facility] ([facility] Hematocrit (Bld) [Volume fraction] 41.1 % Normal 35.0-47.0 [facility] Comment on above: Performed By: #### L [id number] ####Hot Tar Roofer Helper: JOHAN ALEGRIAJOHNNY ([phone])[facility] ([facility])[address] [place] [address] Hemoglobin (Bld) [Mass/Vol] 13.3 g/dL Normal 11.7-16.0 [facility] Comment on above: Performed By: #### L [id number] ####Hot Tar Roofer Helper: JOHAN WATTSCANDY ([phone])[facility] ([facility])[address] IMMATURE GRANS % 1.5 % Normal 0.0-2.0 [facility] Comment on above: Performed By: #### L [id number] ####Hot Tar Roofer Helper: JOHAN WATTSCANDY ([phone])[facility] ([facility])[address] IMMATURE GRANS ABSOLUTE 0.1 10*3/uL High <0.1 [facility] Comment on above: Performed By: #### L [id number] ####Hot Tar Roofer Helper: JOHAN WATTSCANDY ([phone])[facility] ([facility])[address] IPF 1 Normal [facility] Comment on above: Performed By: #### L [id number] ####Hot Tar Roofer Helper: JOHAN BHANDARI ([phone])[facility] [place] (SBHLAB)[address] Lymphocytes (Bld) [#/Vol] 1.4 10*3/uL Normal 1.0-4.3 [facility] Comment on above: Performed By: #### L [id number] ####Hot Tar Roofer Helper: JOHAN BHANDARI ([phone])[facility] (SBHLAB)[address] Lymphocytes/100 WBC (Bld) 15.4 % Normal 15.0-45.0 [facility] Comment on above: Performed By: #### L [id number] ####Hot Tar Roofer Helper: JOHAN BHANDARI ([phone])[facility] (SBHLAB)[address] [place] [address] MCH (RBC) [Entitic mass] 28.7 pg Normal 26.0-34.0 [facility] Comment on above: Performed By: #### L [id number] ####Hot Tar Roofer Helper: JOHAN BHANDARI ([phone])[facility] (SBHLAB)[address] MCHC 32.4 % Normal 30.5-36.0 [facility] Comment on above: Performed By: #### L [id number] ####Hot Tar Roofer Helper: JOHAN THONY ([phone])[facility] (SBHLAB)[address] MCV (RBC) [Entitic vol] 88.6 fL Normal 77.0-99.0 S [facility] Comment on above: Performed By: #### L [id number] ####Hot Tar Roofer Helper: JOHAN BHANDARI ([phone])[facility] (SBHLAB)[address] Monocytes (Bld) [#/Vol] 1.0 10*3/uL High 0.0-0.9 [facility] Comment on above: Performed By: #### L [id number] ####Hot Tar Roofer Helper: JOHAN BHANDARI ([phone])[facility] [place] (SBHLAB)[address] Monocytes/100 WBC (Bld) 10.3 % Normal 5.0-13.0 [facility] Comment on above: Performed By: #### L [id number] ####Hot Tar Roofer Helper: JOHAN BHANDARI ([phone])[facility] [place] (SBHLAB)[address] NEUTROPHILS ABSOLUTE 6.7 10*3/uL Normal 1.8-7.5 [facility] Comment on above: Performed By: #### L [id number] ####Hot Tar Roofer Helper: JOHAN BHANDARI ([phone])[facility] [place] (SBHLAB)[address] Neutrophils/100 WBC (Bld) 72.5 % Normal 38.0-82.0 [facility] Comment on above: Performed By: #### L [id number] ####Hot Tar Roofer Helper: JOHAN BHANDARI ([phone])[facility] [place] (SBHLAB)[address] NRBC 0.0 /100 WBCs Normal 0.0-2.0 [facility] Comment on above: Performed By: #### L [id number] ####Hot Tar Roofer Helper: JOHAN BHANDARI ([phone])[facility] [place] (SBHLAB)[address] Platelet mean volume (Bld) [Entitic vol] 9.1 fL Normal 9.0-12.7 [facility] Comment on above: Performed By: #### L [id number] ####Hot Tar Roofer Helper: JOHAN BHANDARI ([phone])[facility] [place] (SBHLAB)[address] Platelets (Bld) [#/Vol] 133 10*3/uL Low 140-440 [facility] Comment on above: Performed By: #### L [id number] ####Hot Tar Roofer Helper: JOHAN BHANDARI ([phone])[facility] (SBHLAB)[address] RBC (Bld) [#/Vol] 4.64 10*6/uL Normal 3.80-5.20 [facility] Comment on above: Performed By: #### L [id number] ####Hot Tar Roofer Helper: JOHAN BHANDARI ([phone])[facility] ([facility])[address] WBC (Bld) [#/Vol] 9.2 10*3/uL Normal 3.6-10.7 [facility] Comment on above: Performed By: #### L [id number] ####Hot Tar Roofer Helper: JOHAN BHANDARI ([phone])[facility] (HLAB)[address] [place] [address] COMPREHENSIVE METABOLIC PANE Alex 08-10-2024 Albumin [Mass/Vol] 2.8 g/dL Low 3.4-4.8 [facility] Comment on above: Performed By: #### L [id number] #### Hot Tar Roofer Helper: JOHAN BHANDARI ([phone]) [facility] (HLAB) [address] ALP [Catalytic activity/Vol] 78 U/L Normal 40-150 [facility] Comment on above: Performed By: #### L [id number] #### Hot Tar Roofer Helper: JOHAN BHANDARI ([phone]) [facility] (SBHLAB) [address] ALT [Catalytic activity/Vol] 9 U/L Normal <30 [facility] Comment on above: Performed By: #### L [id number] #### Hot Tar Roofer Helper: JOHAN BHANDARI ([phone]) [facility] (SBHLAB) [address] Anion gap [Moles/Vol] 9 mmol/L Normal 3-13 [facility] Comment on above: Performed By: #### L [id number] #### Hot Tar Roofer Helper: JOHAN BHANDARI ([phone]) [facility] [place] (SBHLAB) [address] AST [Catalytic activity/Vol] 17 U/L Normal <34 [facility] Comment on above: Performed By: #### L [id number] #### Hot Tar Roofer Helper: JOHAN BHANDARI ([phone]) [facility] [place] (SBHLAB) [address] [place] [address] [place] Bilirubin [Mass/Vol] 0.3 mg/dL Normal <1.[address] [facility] Comment on above: Performed By: #### L [id number] #### Hot Tar Roofer Helper: JOHAN BHANDARI ([phone]) [facility] [place] (SBHLAB) [address] Calcium [Mass/Vol] 9.4 mg/dL Normal 8.8-10.0 [facility] Comment on above: Performed By: #### L [id number] #### Hot Tar Roofer Helper: JOHAN BHANDARI ([phone]) [facility] [place] (SBHLAB) [address] [place] [address] [place] Chloride [Moles/Vol] 101 mmol/L Normal 98-[address] [facility] Comment on above: Performed By: #### L [id number] #### Hot Tar Roofer Helper: JOHAN BHANDARI ([phone]) [facility] [place] (SBHLAB) [address] [place] [address] [place] CO2 [Moles/Vol] 27 mmol/L Normal 23-31 [facility] Comment on above: Performed By: #### L [id number] #### Hot Tar Roofer Helper: JOHAN BHANDARI ([phone]) [facility] [place] (SBHLAB) [address] [place] [address] [place] Creatinine [Mass/Vol] 0.80 mg/dL Normal 0.57-1.11 [facility] Comment on above: Performed By: #### L [id number] #### Hot Tar Roofer Helper: JOHAN BHANDARI ([phone]) [facility] [place] (SBHLAB) [address] GLOMERULAR FILTRATION RATE ML/MIN/1.73 SQ M.PREDICTED 72.3 mL/min/1.73m*2 Normal >60.0 [facility] Comment on above: Result Comment: Calc ulation based on the Chronic Kidney Disease Epidemiology Collaboration (CKD-EPI) equation refit without adjustment for race Performed By: #### L [id number] #### Hot Tar Roofer Helper: JOHAN BHANDARI ([phone]) [facility] ([facility]) [address] Glucose [Mass/Vol] 112 mg/dL Normal 82-115 [facility] Comment on above: Performed By: #### L [id number] #### Hot Tar Roofer Helper: JOHAN BHANDARI ([phone]) [facility] ([facility]) [address] Potassium [Moles/Vol] 4.2 mmol/L Normal 3.5-5.1 [facility] Comment on above: Result Comment: [facility] potassium values may be up to 0.5 mmol/L lower than serum values. Performed By: #### L [id number] #### Hot Tar Roofer Helper: JOHAN BHANDARI ([phone]) [facility] ([facility]) [address] Protein [Mass/Vol] 6.7 g/dL Normal 6.4-8.3 [facility] Comment on above: Performed By: #### L [id number] #### Hot Tar Roofer Helper: JOHAN BHANDARI ([id number]) [facility] ([facility]) [address] Sodium [Moles/Vol] 137 mmol/L Normal 136-145 [facility] Comment on above: Performed By: #### L [id number] #### Hot Tar Roofer Helper: JOHAN BHANDARI ([phone]) [facility] ([facility]) [address] Urea nitrogen [Mass/Vol] 24 mg/dL High 9-23 [facility] Comment on above: Performed By: #### L [id number] #### Hot Tar Roofer Helper: JOHAN BHANDARI ([phone]) [facility] ([facility]) [address] [place] [address] Comprehensive metabolic 1998 panelon 08-10-2024 Albumin [Mass/Vol] 2.8 g/dL Low 3.4 - 4.8 g/dL [facility] ALP [Catalytic activity/Vol] 78 U/L 40 - 150 U/L [facility] ALT [Catalytic activity/Vol] 9 U/L NINF - 30 U/L [facility] Anion gap [Moles/Vol] 9 mmol/L 3 - 13 mmol/L [facility] AST [Catalytic activity/Vol] 17 U/L NINF - 34 U/L [facility] Bilirubin [Mass/Vol] 0.3 mg/dL NINF - 1.2 mg/dL [facility] Calcium [Mass/Vol] 9.4 mg/dL 8.8 - 10. 0 mg/dL [facility] Chloride [Moles/Vol] 101 mmol/L 98 - 10 7 mmol/L [facility] CO2 [Moles/Vol] 27 mmol/L 23 - 31 mmol/L [facility] Creatinine [Mass/Vol] 0.8 mg/dL 0.57 - 1.11 mg/dL [facility] GFR/1.73 sq M.predicted (S/P/Bld) [Vol rate/Area] 72.3 mL/min - PINF [facility] Comment on above: Calculation based on the Chronic Kidney Disease Epidemiology Collaboration (CKD-EPI) equation refit without adjustment for race Glucose [Mass/Vol] 112 mg/dL 82 - 115 mg/dL [facility] Interpretation and review of laboratory results Abnormal [facility] Potassium [Moles/Vol] 4.2 mmol/L 3.5 - 5.1 mmol/L [facility] Comment on above: Plasma potassium gustavo ues may be up to 0.5 mmol/L lower than serum values. 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 Strength: Not Performed Nutrition Assessment: 83 y.o [...] On: Kcal/kg Weight Used for Energy Requirements: [place] Weight for Energy Calculation (kg): 45 kg Total Energy Requirements (kcals/day): 7611-3792 (25-30 kcal/kg IBW) Weight Used for Protein Requirements: [place] Weight in Kg Used for Protein Requirements: [...] lb) (11/11/23) % Weight Change (Calculated): 11.7 [place] Body Weight (lbs) (Calculated): 100 lbs [place] Body Weight (Kg) (Calculated): 45 kg % [place] Body Weight (Calculated): 220 % BMI (kg/m2) [...] Continue current diet Kamilah Rodriguez RD Contact: *[phone] or via Secure Chat [facility] Progress Note [facility] Wound Care CONSULT Note Krish Peralta AGE: 83 y.o. GENDER: female : 1940 Subjective: HISTORY of PRESENT ILLNESS HPI Krish Peralta is a 83 y.o. female who presents for a wound consult. HPI: Ms. Peralta is a 83 y.o. female with past medical history significant for COPD. Patient presented to the emergency room from longterm facility for shortness of breath. 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 Outpatient wound care center after hospital [...] (La (more content not included)... Normal [facility] Progress Note [facility] Pulmonary Medicine [address] [place] [address] [id number] Patient - Krish Peralta, Age - 83 y.o. - 1940 Room Number - B2-255/B2-255 A Consulting - Helen Wan DO Primary Care Physician - No primary care provider [facility] file[id number] Date of Admission - 08/03/2024 4:21 PM [...] cephalexin tolerating well Darrick Marcum Pulmonary Medicine [facility] [1] amLODIPine, 5 mg, Oral, q24h cephalexin, 1,000 mg, Oral, q8h enoxaparin, 30 mg, SubCUTAneous, 2 times per day escita (more content not included)... Normal [facility] Progress Note PHYSICAL THERAPY [facility] Treatment Note Name/MRN: Krish Peralta ([id number]) Date of : 1940 Age: 83 y.o. Room[facility]Bed: [facility] A Visit #: 4 out of 8 (visits added by PT due to continued need for acute skilled PT) Discharge Recommendation: Residential Facility Equipment Needed: No Assessment Pt demos [...] Raw Score (No Stairs) : 15 [facility] Score: Walked 25 ft or more (i.e. [...] End: 08/11/24 Resolve (more content not included)... [facility] 30on 08-09-2024 Problem: Knowledge Deficit Goal: Patient/family/caregi [...] Interventions Goal: Promote nutritional intake Outcome: Progressing [facility] 30 Problem: Knowledge Deficit Goal: Patient/family/caregi [...] 08/09/2024206 by Sophy Olmos RN Outcome: Progressing 08/09/2024 015 by Sophy Olmos RN Outcome: Progressing Problem: Problem Interventions Goal: Promote nutritional intake 08/09/2024 0207 by Sophy Olmos RN Outcome: Progressing 08/09/2024 015 by Sophy Olmos RN Outcome: Progressing Normal [facility] 30 Problem: Knowledge Deficit Goal: Patient/family/caregi krysta [...] Promote nutritional intake Outcome: Progressing Normal [facility] [id number] 08-09-2024 [id number] [facility] t o [facility]. Await review and response regarding ability to accept. TCC notified. [facility] CBC W Auto Differential pane l (Bld)on 08-09-2024 Basophils (Bld) [#/Vol] 0 10*3/uL 0.0 - 0.2 10*3/uL [facility] Basophils/100 WBC (Bld) 0.2 % 0.0 - 2.0 % [facility] Eosinophils (Bld) [#/Vol] 0 10*3/uL 0.0 - 0.5 10*3/uL [facility] Eosinophils/100 WBC (Bld) 0 % 0.0 - 6.0 % [facility] Erythrocyte distribution width (RBC) [Ratio] 13.6 % 11.5 - 15.0 % [facility] Hematocrit (Bld) [Volume fraction] 43 % 35.0 - 47.0 % [facility] Hemoglobin (Bld) [Mass/Vol] 14.1 g/dL 11.7 - 16.0 g/dL [facility] Immature granulocytes (Bld) [#/Vol] 0.2 10*3/uL High NINF - 0.1 10*3/uL [facility] Immature granulocytes/100 WBC (Bld) 1.8 % 0.0 - 2.0 % [facility] Interpretation and review of laboratory results Abnormal [facility] [employer] Lymphocytes (Bld) [#/Vol] 1 10*3/uL 1.0 - 4.3 10*3/uL [facility] [employer] Lymphocytes/100 WBC (Bld) 10.9 % Low 15.0 - 45.0 % [facility] MCH (RBC) [Entitic mass] 29 pg 26. 0 - 34.0 pg [facility] MCHC (RBC) [Mass/Vol] 32.8 % 30.5 - 36.0 % [facility] MCV (RBC) [Entitic vol] 88.3 fL 77.0 - 99.[address] [facility] [employer] Monocytes (Bld) [#/Vol] 1 10*3/uL High 0.0 - 0.9 10*3/uL [facility] Monocytes/100 WBC (Bld) 11.1 % 5.0 - 13.0 % [facility] Neutrophils (Bld) [#/Vol] 7 10*3/uL 1.8 - 7.5 10*3/uL [facility] [employer] Neutrophils/100 WBC (Bld) 76 % 38.0 - 82.0 % [facility] Nucleated RBC/100 WBC (Bld) [Ratio] 0 % [facility] [employer] Platelet mean volume (Bld) [Entitic vol] 9.5 fL 9.0 - 12.7 fL [facility] Platelets (Bld) [#/Vol] 146 10*3/uL 140 - 440 10*3/uL [facility] RBC (Bld) [#/Vol] 4.87 10*6/uL 3.80 - 5.2 0 10*6/uL [facility] [employer] WBC (Bld) [#/Vol] 9.3 10*3/uL 3.6 - 10.7 10*3/uL [facility] CBC WITH AUTO DIFFERENTIALon 08-09-2024 Basophils (Bld) [#/Vol] 0.0 10*3/uL Normal 0.0-0.2 [facility] Comment on above: Performed By: #### L [id number] ####Hot Tar Roofer Helper: JOHAN BHANDARI ([phone])[facility] ([facility])[address] [place] [address] Basophils/100 WBC (Bld) 0.2 % Normal 0.0-2.0 S [facility] Comment on above: Performed By: #### L [id number] ####Hot Tar Roofer Helper: JOHAN BHANDARI ([phone])[facility] [place] ([facility])[address] Eosinophils (Bld) [#/Vol] 0.0 10*3/uL Normal 0.0-0.5 [facility] Comment on above: Performed By: #### L [id number] ####Hot Tar Roofer Helper: JOHAN WATTSCANDY ([phone])[facility] [place] ([facility])[address] Eosinophils/100 WBC (Bld) 0.0 % Normal 0.0-6.0 [facility] Comment on above: Performed By: #### L [id number] ####Hot Tar Roofer Helper: JOHAN WATTSCANDY ([phone])[facility] [place] ([facility] Erythrocyte distribution width (RBC) [Ratio] 13.6 % Normal 11.5-15.0 [facility] Comment on above: Performed By: #### L [id number] ####Hot Tar Roofer Helper: JOHAN BHANDARI ([phone])[facility] [place] ([facility] [place] [address] Hematocrit (Bld) [Volume fraction] 43.0 % Normal 35.0-47.0 [facility] Comment on above: Performed By: #### L [id number] ####Hot Tar Roofer Helper: JOHAN WATTSCANDY ([phone])[facility] [place] ([facility])[address] [place] [address] Hemoglobin (Bld) [Mass/Vol] 14.1 g/dL Normal 11.7-16.0 [facility] Comment on above: Performed By: #### L [id number] ####Hot Tar Roofer Helper: JOHAN BHANDARI ([phone])[facility] [place] ([facility])[address] IMMATURE GRANS % 1.8 % Normal 0.0-2.0 [facility] Comment on above: Performed By: #### L [id number] ####Hot Tar Roofer Helper: JOHAN ALEGRIAAllanCANDY ([phone])[facility] (SB[facility])[address] IMMATURE GRANS ABSOLUTE 0.2 10*3/uL High <0.1 [facility] Comment on above: Performed By: #### L [id number] ####Hot Tar Roofer Helper: JOHAN WATTSCANDY ([phone])[facility] ([facility])[address] Lymphocytes (Bld) [#/Vol] 1.0 10*3/uL Normal 1.0-4.3 [facility] Comment on above: Performed By: #### L [id number] ####Hot Tar Roofer Helper: JOHAN ALEGRIAJOHNNY ([phone])[facility] ([facility] Lymphocytes/100 WBC (Bld) 10.9 % Low 15.0-45.0 [facility] Comment on above: Performed By: #### L [id number] ####Hot Tar Roofer Helper: JOHAN WATTSCANDY ([phone])[facility] ([facility])[address] MCH (RBC) [Entitic mass] 29.0 pg Normal 26.0-34.0 [facility] Comment on above: Performed By: #### L [id number] ####Hot Tar Roofer Helper: JOHAN WATTSCANDY ([phone])[facility] ([facility])[address] MCHC 32.8 % Normal 30.5-36.0 [facility] Comment on above: Performed By: #### L [id number] ####Hot Tar Roofer Helper: JOHAN WATTSCANDY ([phone])[facility] ([facility])[address] MCV (RBC) [Entitic vol] 88.3 fL Normal 77.0-99.0 S [facility] Comment on above: Performed By: #### L [id number] ####Hot Tar Roofer Helper: JOHAN BHANDARI ([phone])[facility] [place] (SBHLAB)[address] Monocytes (Bld) [#/Vol] 1.0 10*3/uL High 0.0-0.9 [facility] Comment on above: Performed By: #### L [id number] ####Hot Tar Roofer Helper: JOHAN BHANDARI ([phone])[facility] [place] ([facility])[address] Monocytes/100 WBC (Bld) 11.1 % Normal 5.0-13.0 S [facility] Comment on above: Performed By: #### L [id number] ####Hot Tar Roofer Helper: JOHAN BHANDARI ([phone])[facility] [place] ([facility])[address] NEUTROPHILS ABSOLUTE 7.0 10*3/uL Normal 1.8-7.5 [facility] Comment on above: Performed By: #### L [id number] ####Hot Tar Roofer Helper: JOHAN BHANDARI ([phone])[facility] [place] ([facility])[address] Neutrophils/100 WBC (Bld) 76.0 % Normal 38.0-82.0 [facility] Comment on above: Performed By: #### L [id number] ####Hot Tar Roofer Helper: JOHAN BHANDARI ([phone])[facility] [place] ([facility])[address] NRBC 0.0 /100 WBCs Normal 0.0-2.0 [facility] Comment on above: Performed By: #### L [id number] ####Hot Tar Roofer Helper: JOHAN BHANDARI ([phone])[facility] [place] ([facility])[address] Platelet mean volume (Bld) [Entitic vol] 9.5 fL Normal 9.0-12.7 [facility] Comment on above: Performed By: #### L [id number] ####Hot Tar Roofer Helper: JOHAN BHANDARI ([phone])[facility] ([facility])[address] Platelets (Bld) [#/Vol] 146 10*3/uL Normal 140-440 [facility] Comment on above: Performed By: #### L [id number] ####Hot Tar Roofer Helper: JOHAN BHANDARI ([phone])[facility] ([facility])[address] RBC (Bld) [#/Vol] 4.87 10*6/uL Normal 3.80-5.20 [facility] Comment on above: Performed By: #### L [id number] ####Hot Tar Roofer Helper: JOHAN BHANDARI ([phone])[facility] ([facility])[address] WBC (Bld) [#/Vol] 9.3 10*3/uL Normal 3.6-10.7 [facility] Comment on above: Performed By: #### L [id number] ####Hot Tar Roofer Helper: JOHAN BHNADARI ([phone])[facility] ([facility])[address] COMPREHENSIVE METABOLIC PANE Alex 08-09-2024 Albumin [Mass/Vol] 2.9 g/dL Low 3.4-4.8 [facility] Comment on above: Performed By: #### L [id number] ####Hot Tar Roofer Helper: JOHAN BHANDARI ([phone])[facility] ([facility])[address] ALP [Catalytic activity/Vol] 78 U/L Normal 40-150 [facility] Comment on above: Performed By: #### L [id number] ####Hot Tar Roofer Helper: JOHAN BHANDARI ([phone])[facility] ([facility])[address] ALT [Catalytic activity/Vol] 6 U/L Normal <30 [facility] Comment on above: Performed By: #### L [id number] ####Hot Tar Roofer Helper: JOHAN BHANDARI ([phone])[facility] ([facility])[address] Anion gap [Moles/Vol] 10 mmol/L Normal 3-13 [facility] Comment on above: Performed By: #### L [id number] ####Hot Tar Roofer Helper: JOHAN BHANDARI ([phone])[facility] ([facility])[address] AST [Catalytic activity/Vol] 11 U/L Normal <34 [facility] Comment on above: Performed By: #### L [id number] ####Hot Tar Roofer Helper: JOHAN BHANDARI ([phone])[facility] ([facility])[address] Bilirubin [Mass/Vol] 0.3 mg/dL Normal <1.[address] [facility] Comment on above: Performed By: #### L [id number] ####Hot Tar Roofer Helper: JOHAN BHANDARI ([phone])[facility] ([facility])[address] Calcium [Mass/Vol] 9.9 mg/dL Normal 8.8-10.0 [facility] Comment on above: Performed By: #### L [id number] ####Hot Tar Roofer Helper: JOHAN BHANDARI ([phone])[facility] ([facility])[address] Chloride [Moles/Vol] 99 mmol/L Normal 98-107 [facility] Comment on above: Performed By: #### L [id number] ####Hot Tar Roofer Helper: JOHAN BHANDARI ([phone])[facility] ([facility])[address] CO2 [Moles/Vol] 29 mmol/L Normal 23-31 [facility] Comment on above: Performed By: #### L [id number] ####Hot Tar Roofer Helper: JOHAN BHANDARI ([phone])[facility] ([facility])[address] Creatinine [Mass/Vol] 0.83 mg/dL Normal 0.57-1.11 [facility] Comment on above: Performed By: #### L [id number] ####Hot Tar Roofer Helper: JOHAN BHANDARI ([phone])[facility] ([facility])[address] [place] [address] [place] GLOMERULAR FILTRATION RATE ML/MIN/1.73 SQ M.PREDICTED 69.2 mL/min/1.73m*2 Normal >60.0 [facility] Comment on above: Result Comment: Calc ulation based on the Chronic Kidney Disease Epidemiology Collaboration (CKD-EPI) equation refit without adjustment for race Performed By: #### L [id number] ####Hot Tar Roofer Helper: JOHAN BHANDARI ([phone])[facility] [place] ([facility])[address] Glucose [Mass/Vol] 118 mg/dL High 82-115 [facility] Comment on above: Performed By: #### L [id number] ####Hot Tar Roofer Helper: JOHAN BHANDARI ([phone])[facility] ([facility])[address] Potassium [Moles/Vol] 4.5 mmol/L Normal 3.5-5.1 [facility] Comment on above: Result Comment: [facility] potassium values may be up to 0.5 mmol/L lower than serum values. Performed By: #### L [id number] ####Hot Tar Roofer Helper: JOHAN BHANDARI ([phone])[facility] (SBHL[facility])[address] [place] [address] [place] Protein [Mass/Vol] 7.3 g/dL Normal 6.4-8.3 [facility] Comment on above: Performed By: #### L [id number] ####Hot Tar Roofer Helper: JOHAN BHANDARI ([phone])[facility] ([facility])[address] [place] [address] [place] Sodium [Moles/Vol] 138 mmol/L Normal 136-145 [facility] Comment on above: Performed By: #### L [id number] ####Hot Tar Roofer Helper: JOHAN ALEGRIAAllanCANDY ([phone])[facility] (SBHL[facility])[address] Urea nitrogen [Mass/Vol] 24 mg/dL High 9-23 [facility] Comment on above: Performed By: #### L [id number] ####Hot Tar Roofer Helper: JOHAN ALEGRIAAllanCANDY ([phone])[facility] (SBHL[facility])[address] Comprehensive metabolic 1998 panelon 08-09-2024 Albumin [Mass/Vol] 2.9 g/dL Low 3.4 - 4.8 g/dL [facility] ALP [Catalytic activity/Vol] 78 U/L 40 - 150 U/L [facility] ALT [Catalytic activity/Vol] 6 U/L NINF - 30 U/L [facility] Anion gap [Moles/Vol] 10 mmol/L 3 - 13 mmol/L [facility] AST [Catalytic activity/Vol] 11 U/L NINF - 34 U/L [facility] Bilirubin [Mass/Vol] 0.3 mg/dL NINF - 1.2 mg/dL [facility] Calcium [Mass/Vol] 9.9 mg/dL 8.8 - 10. 0 mg/dL [facility] Chloride [Moles/Vol] 99 mmol/L 98 - 10 7 mmol/L [facility] CO2 [Moles/Vol] 29 mmol/L 23 - 31 mmol/L [facility] Creatinine [Mass/Vol] 0.83 mg/dL 0.57 - 1.11 mg/dL [facility] GFR/1.73 sq M.predicted (S/P/Bld) [Vol rate/Area] 69.2 mL/min - PINF [facility] Comment on above: Calculation based on the Chronic Kidney Disease Epidemiology Collaboration (CKD-EPI) equation refit without adjustment for race Glucose [Mass/Vol] 118 mg/dL High 82 - 115 mg/dL [facility] Interpretation and review of laboratory results Abnormal [facility] Potassium [Moles/Vol] 4.5 mmol/L 3.5 - 5.1 mmol/L [facility] Comment on above: Plasma potassium gustavo ues may be up to 0.5 mmol/L lower than serum values. Protein [Mass/Vol] 7.3 g/dL 6.4 - 8.3 g/dL [facility] Sodium [Moles/Vol] 138 mmol/L 136 - 145 mmol/L [facility] [employer] Urea nitrogen [Mass/Vol] 24 mg/dL High 9 - 23 mg/dL [facility] Progress Noteon 08-09-2024 Progress Note [facility] Pulmonary Medicine [address] [place] [address] Patient - Krish Peralta, Age - 83 y.o. - 1940 Room Number - B2-255/B2-255 A Consulting - Gee Givens MD Primary Care Physician - No primary care provider [facility] file[id number] Date of Admission - 08/03/2024 4:21 PM [...] on dry side Darrick Marcum Pulmonary Medicine [facility] [1] amLODIPine, 5 mg, Oral, q24h cefTRIAXone, 1,000 mg, IntraVENous, q24h enoxaparin, 30 mg, SubCUTAneous, 2 times per day escitalo (more content not included)... Normal [facility] Progress Note PHYSICAL THERAPY [facility] Treatment Note Name/MRN: Krish Peralta ([id number]) Date of : 1940 Age: 83 y.o. Room/Bed: B2-255/B2-255 A Visit #: 3 out of 5 Discharge Recommendation: Residential Facility Equipment Needed: No Assessment Pt continues [...] Minutes (x1 ther ex) Clary Wilson PTA [facility] 30on 08-08-2024 30 Problem: Knowledge Deficit Goal: Patient/family/caregi krysta demonstrates understanding of disease process, treatment plan, medications, and discharge instructions Outcome: Progressing Problem: Potential for Compromised Skin Integrity Goal: Skin Integrity is Maintained or Improved Outcome: Progressing Problem: Urinary Incontinence Goal: Perineal skin integrity is maintained or improved Outcome: Progressing Problem: Problem Interventions Goal: Promote nutritional intake Outcome: Progressing [facility] 30 Problem: Knowledge Deficit Goal: Patient/family/caregi [...] Sophy Olmos RN Outcome: Progressing Normal [facility] 30 Problem: Knowledge Deficit Goal: Patient/family/caregi krysta [...] Promote nutritional intake Outcome: Progressing Normal [facility] CBC W Auto Differential pane l (Bld)on 08-08-2024 Basophils (Bld) [#/Vol] 0 10*3/uL 0.0 - 0.2 10*3/uL [facility] Basophils/100 WBC (Bld) 0.3 % 0.0 - 2.0 % [facility] Eosinophils (Bld) [#/Vol] 0 10*3/uL 0.0 - 0.5 10*3/uL [facility] Eosinophils/100 WBC (Bld) 0 % 0.0 - 6.0 % [facility] Erythrocyte distribution width (RBC) [Ratio] 13.7 % 11.5 - 15.0 % [facility] Hematocrit (Bld) [Volume fraction] 41.9 % 35.0 - 47.0 % [facility] Hemoglobin (Bld) [Mass/Vol] 13.6 g/dL 11.7 - 16.0 g/dL [facility] Immature granulocytes (Bld) [#/Vol] 0.2 10*3/uL High NINF - 0.1 10*3/uL [facility] Immature granulocytes/100 WBC (Bld) 2.1 % High 0.0 - 2.0 % [facility] Interpretation and review of laboratory results Abnormal [facility] IPF 1 [facility] Lymphocytes (Bld) [#/Vol] 0.8 10*3/uL Low 1.0 - 4.3 10*3/uL [facility] Lymphocytes/100 WBC (Bld) 11.5 % Low 15.0 - 45.0 % [facility] MCH (RBC) [Entitic mass] 28.8 pg 26. 0 - 34.0 pg [facility] MCHC (RBC) [Mass/Vol] 32.5 % 30.5 - 36.0 % [facility] MCV (RBC) [Entitic vol] 88.6 fL 77.0 - 99.0 fL [facility] Monocytes (Bld) [#/Vol] 0.6 10*3/uL 0.0 - 0.9 10*3/uL [facility] Monocytes/100 WBC (Bld) 8 % 5.0 - 13.0 % [facility] Neutrophils (Bld) [#/Vol] 5.7 10*3/uL 1.8 - 7.5 10*3/uL [facility] Neutrophils/100 WBC (Bld) 78.1 % 38.0 - 82.0 % [facility] Nucleated RBC/100 WBC (Bld) [Ratio] 0 % [facility] Platelet mean volume (Bld) [Entitic vol] 9.6 fL 9.0 - 12.7 fL [facility] Platelets (Bld) [#/Vol] 124 10*3/uL Low 140 - 440 10*3/uL [facility] RBC (Bld) [#/Vol] 4.73 10*6/uL 3.80 - 5.2 0 10*6/uL [facility] WBC (Bld) [#/Vol] 7.3 10*3/uL 3.6 - 10.7 10*3/uL [facility] CBC WITH AUTO DIFFERENTIALon 08-08-2024 Basophils (Bld) [#/Vol] 0.0 10*3/uL Normal 0.0-0.2 [facility] Comment on above: Performed By: #### L [id number] ####Hot Tar Roofer Helper: JOHAN BHADNARI ([phone])[facility] (SBHLAB)[address] Basophils/100 WBC (Bld) 0.3 % Normal 0.0-2.0 S [facility] Comment on above: Performed By: #### L [id number] ####Hot Tar Roofer Helper: JOHAN BHANDARI ([phone])[facility] (SBHLAB)[address] Eosinophils (Bld) [#/Vol] 0.0 10*3/uL Normal 0.0-0.5 [facility] Comment on above: Performed By: #### L [id number] ####Hot Tar Roofer Helper: JOHAN BHANDARI ([phone])[facility] [place] [facility] [place] [address] Eosinophils/100 WBC (Bld) 0.0 % Normal 0.0-6.0 [facility] Comment on above: Performed By: #### L [id number] ####Hot Tar Roofer Helper: JOHAN BHANDARI ([phone])[facility] [place] ([facility])[address] [place] [address] Erythrocyte distribution width (RBC) [Ratio] 13.7 % Normal 11.5-15.0 [facility] Comment on above: Performed By: #### L [id number] ####Hot Tar Roofer Helper: JOHAN WATTSCANDY ([phone])[facility] ([facility])[address] [place] [address] Hematocrit (Bld) [Volume fraction] 41.9 % Normal 35.0-47.0 [facility] Comment on above: Performed By: #### L [id number] ####Hot Tar Roofer Helper: JOHAN BHANDARI ([phone])[facility] ([facility])[address] [place] [address] Hemoglobin (Bld) [Mass/Vol] 13.6 g/dL Normal 11.7-16.0 [facility] Comment on above: Performed By: #### L [id number] ####Hot Tar Roofer Helper: JOHAN BHANDARI ([phone])[facility] [place] [address] IMMATURE GRANS % 2.1 % High 0.0-2.0 [facility] Comment on above: Performed By: #### L [id number] ####Hot Tar Roofer Helper: JOHAN BHANDARI ([phone])[facility] ([facility] [place] [address] IMMATURE GRANS ABSOLUTE 0.2 10*3/uL High <0.1 [facility] Comment on above: Performed By: #### L [id number] ####Hot Tar Roofer Helper: JOHAN BHANDARI ([phone])[facility] CENTERSuj[facility]AM[facility]abel[facility] ([facility])[address] IPF 1 Normal [facility] Comment on above: Performed By: #### L [id number] ####Hot Tar Roofer Helper: JOHAN BHANDARI ([phone])[facility] CENTERS[facility] ([facility])[address] Lymphocytes (Bld) [#/Vol] 0.8 10*3/uL Low 1.0-4.3 [facility] Comment on above: Performed By: #### L [id number] ####Hot Tar Roofer Helper: JOHAN BHANDARI ([phone])[facility] ([facility])[address] [place] [address] Lymphocytes/100 WBC (Bld) 11.5 % Low 15.0-45.0 [facility] Comment on above: Performed By: #### L [id number] ####Hot Tar Roofer Helper: JOHAN BHANDARI ([phone])[facility] CENTERSujata [facility] CENTERIsabela (SB[facility])[address] [place] [address] MCH (RBC) [Entitic mass] 28.8 pg Normal 26.0-34.0 [facility] Comment on above: Performed By: #### L [id number] ####Hot Tar Roofer Helper: JOHAN BHANDARI ([phone])[facility] ([facility])[address] [place] [address] MCHC 32.5 % Normal 30.5-36.0 [facility] Comment on above: Performed By: #### L [id number] ####Hot Tar Roofer Helper: JOHAN BHANDARI ([phone])[facility] ([facility])[address] [place] [address] MCV (RBC) [Entitic vol] 88.6 fL Normal 77.0-99.0 S [facility] Comment on above: Performed By: #### L [id number] ####Hot Tar Roofer Helper: JOHAN BHANDARI ([phone])[facility] ([facility])[address] Monocytes (Bld) [#/Vol] 0.6 10*3/uL Normal 0.0-0.9 [facility] Comment on above: Performed By: #### L [id number] ####Hot Tar Roofer Helper: JOHAN BHANDARI ([phone])[facility] [place] ([facility])[address] Monocytes/100 WBC (Bld) 8.0 % Normal 5.0-13.0 [facility] Comment on above: Performed By: #### L [id number] ####Hot Tar Roofer Helper: JOHAN BHANDARI ([phone])[facility] [place] ([facility])[address] [place] [address] NEUTROPHILS ABSOLUTE 5.7 10*3/uL Normal 1.8-7.5 [facility] Comment on above: Performed By: #### L [id number] ####Hot Tar Roofer Helper: JOHAN BHANDARI ([phone])[facility] [place] ([facility])[address] Neutrophils/100 WBC (Bld) 78.1 % Normal 38.0-82.0 [facility] Comment on above: Performed By: #### L [id number] ####Hot Tar Roofer Helper: JOHAN BHANDARI ([phone])[facility] [place] ([facility])[address] NRBC 0.0 /100 WBCs Normal 0.0-2.0 [facility] Comment on above: Performed By: #### L [id number] ####Hot Tar Roofer Helper: JOHAN BHANDARI ([phone])[facility] [place] ([facility])[address] Platelet mean volume (Bld) [Entitic vol] 9.6 fL Normal 9.0-12.7 [facility] Comment on above: Performed By: #### L [id number] ####Hot Tar Roofer Helper: JOHAN BHANDARI ([phone])[facility] [place] ([facility])[address] Platelets (Bld) [#/Vol] 124 10*3/uL Low 140-440 [facility] Comment on above: Performed By: #### L [id number] ####Hot Tar Roofer Helper: JOHAN BHANDARI ([phone])[facility] [place] ([facility])[address] RBC (Bld) [#/Vol] 4.73 10*6/uL Normal 3.80-5.20 [facility] Comment on above: Performed By: #### L [id number] ####Hot Tar Roofer Helper: JOHAN BHANDARI ([phone])[facility] [place] ([facility])[address] WBC (Bld) [#/Vol] 7.3 10*3/uL Normal 3.6-10.7 [facility] Comment on above: Performed By: #### L [id number] ####Hot Tar Roofer Helper: JOHAN BHANDARI ([phone])[facility]A [facility] ([facility])[address] COMPREHENSIVE METABOLIC PANE Alex 08-08-2024 Albumin [Mass/Vol] 2.9 g/dL Low 3.4-4.8 [facility] Comment on above: Performed By: #### L [id number] ####Hot Tar Roofer Helper: JOHAN BHANDARI ([phone])[facility] [place] ([facility])[address] ALP [Catalytic activity/Vol] 78 U/L Normal 40-150 [facility] Comment on above: Performed By: #### L [id number] ####Hot Tar Roofer Helper: JOHAN BHANDARI ([phone])[facility] [place] ([facility])[address] ALT [Catalytic activity/Vol] 9 U/L Normal <30 [facility] Comment on above: Performed By: #### L [id number] ####Hot Tar Roofer Helper: JOHAN BHANDARI ([phone])[facility] ([facility])[address] Anion gap [Moles/Vol] 10 mmol/L Normal 3-13 [facility] Comment on above: Performed By: #### L [id number] ####Hot Tar Roofer Helper: JOHAN BHANDARI ([phone])[facility] [place] ([facility])[address] AST [Catalytic activity/Vol] 16 U/L Normal <34 [facility] Comment on above: Performed By: #### L [id number] ####Hot Tar Roofer Helper: JOHAN BHANDARI ([phone])[facility] [place] ([facility])[address] Bilirubin [Mass/Vol] 0.3 mg/dL Normal <1.[address] [facility] Comment on above: Performed By: #### L [id number] ####Hot Tar Roofer Helper: JOHAN BHANDARI ([phone])[facility] [place] ([facility])[address] Calcium [Mass/Vol] 9.8 mg/dL Normal 8.8-10.0 [facility] Comment on above: Performed By: #### L [id number] ####Hot Tar Roofer Helper: JOHAN BHANDARI ([phone])[facility] [place] ([facility])[address] Chloride [Moles/Vol] 100 mmol/L Normal 98-[address] [facility] Comment on above: Performed By: #### L [id number] ####Hot Tar Roofer Helper: JOHAN BHANDARI ([phone])[facility] [place] ([facility])[address] [place] [address] [place] CO2 [Moles/Vol] 29 mmol/L Normal 23-31 [facility] Comment on above: Performed By: #### L [id number] ####Hot Tar Roofer Helper: JOHAN BHANDARI ([phone])[facility] [place] ([facility])[address] Creatinine [Mass/Vol] 0.80 mg/dL Normal 0.57-1.11 [facility] Comment on above: Performed By: #### L [id number] ####Hot Tar Roofer Helper: JOHAN BHANDARI ([phone])[facility] ([facility])[address] [place] [address] [place] GLOMERULAR FILTRATION RATE ML/MIN/1.73 SQ M.PREDICTED 72.3 mL/min/1.73m*2 Normal >60.0 [facility] Comment on above: Result Comment: Calc ulation based on the Chronic Kidney Disease Epidemiology Collaboration (CKD-EPI) equation refit without adjustment for race Performed By: #### L [id number] ####Hot Tar Roofer Helper: JOHAN BHANDARI ([phone])[facility] ([facility])[address] Glucose [Mass/Vol] 118 mg/dL High 82-115 [facility] Comment on above: Performed By: #### L [id number] ####Hot Tar Roofer Helper: JOHAN BHANDARI ([phone])[facility] ([facility])[address] Potassium [Moles/Vol] 4.7 mmol/L Normal 3.5-5.1 [facility] Comment on above: Result Comment: [facility] potassium values may be up to 0.5 mmol/L lower than serum values. Performed By: #### L [id number] ####Hot Tar Roofer Helper: JOHAN BHANDARI ([phone])[facility] ([facility])[address] Protein [Mass/Vol] 7.5 g/dL Normal 6.4-8.3 [facility] Comment on above: Performed By: #### L [id number] ####Hot Tar Roofer Helper: JOHAN BHANDARI ([phone])[facility] ([facility])[address] Sodium [Moles/Vol] 139 mmol/L Normal 136-145 [facility] Comment on above: Performed By: #### L [id number] ####Hot Tar Roofer Helper: JOHAN BHANDARI ([phone])[facility] ([facility])[address] Urea nitrogen [Mass/Vol] 21 mg/dL Normal 9-23 [facility] Comment on above: Performed By: #### L [id number] ####Hot Tar Roofer Helper: JOHAN WATTSCANDY ([phone])[facility] ([facility])[address] Comprehensive metabolic 1998 panelon 08-08-2024 Albumin [Mass/Vol] 2.9 g/dL Low 3.4 - 4.8 g/dL [facility] ALP [Catalytic activity/Vol] 78 U/L 40 - 150 U/L [facility] ALT [Catalytic activity/Vol] 9 U/L NINF - 30 U/L [facility] Anion gap [Moles/Vol] 10 mmol/L 3 - 13 mmol/L [facility] AST [Catalytic activity/Vol] 16 U/L NINF - 34 U/L [facility] Bilirubin [Mass/Vol] 0.3 mg/dL NINF - 1.2 mg/dL [facility] Calcium [Mass/Vol] 9.8 mg/dL 8.8 - 10. 0 mg/dL [facility] Chloride [Moles/Vol] 100 mmol/L 98 - 10 7 mmol/L [facility] CO2 [Moles/Vol] 29 mmol/L 23 - 31 mmol/L [facility] Creatinine [Mass/Vol] 0.8 mg/dL 0.57 - 1.11 mg/dL [facility] GFR/1.73 sq M.predicted (S/P/Bld) [Vol rate/Area] 72.3 mL/min - PINF [facility] Comment on above: Calculation based on the Chronic Kidney Disease Epidemiology Collaboration (CKD-EPI) equation refit without adjustment for race Glucose [Mass/Vol] 118 mg/dL High 82 - 115 mg/dL [facility] Interpretation and review of laboratory results Abnormal [facility] Potassium [Moles/Vol] 4.7 mmol/L 3.5 - 5.1 mmol/L [facility] Comment on above: Plasma potassium gustavo ues may be up to 0.5 mmol/L lower than serum values. Protein [Mass/Vol] 7.5 g/dL 6.4 - 8.3 g/dL [facility] Sodium [Moles/Vol] 139 mmol/L 136 - 145 mmol/L [facility] Urea nitrogen [Mass/Vol] 21 mg/dL 9 - 23 mg/dL [facility] 30on 08-07-2024 30 Problem: Knowledge Deficit Goal: Patient/family/caregi krysta demonstrates understanding of disease process, treatment plan, medications, and discharge instructions Outcome: Progressing Problem: Potential for Compromised Skin Integrity Goal: Skin Integrity is Maintained or Improved Outcome: Progressing Problem: Urinary Incontinence Goal: Perineal skin integrity is maintained or improved Outcome: Progressing Problem: Problem Interventions Goal: Promote nutritional intake Outcome: Progressing Normal [facility] 30 Problem: Knowledge Deficit Goal: [...] Goal: Promote nutritional intake Outcome: Progressing Normal [facility] CBC W Auto Differential pane l (Bld)on 08-07-2024 Basophils (Bld) [#/Vol] 0 10*3/uL 0.0 - 0.2 10*3/uL [facility] Basophils/100 WBC (Bld) 0.1 % 0.0 - 2.0 % [facility] Eosinophils (Bld) [#/Vol] 0 10*3/uL 0.0 - 0.5 10*3/uL [facility] Eosinophils/100 WBC (Bld) 0.2 % 0.0 - 6.0 % [facility] Erythrocyte distribution width (RBC) [Ratio] 13.5 % 11.5 - 15.0 % [facility] Hematocrit (Bld) [Volume fraction] 42.1 % 35.0 - 47.0 % [facility] Hemoglobin (Bld) [Mass/Vol] 14.1 g/dL 11.7 - 16.0 g/dL [facility] Immature granulocytes (Bld) [#/Vol] 0.2 10*3/uL High NINF - 0.1 10*3/uL [facility] Immature granulocytes/100 WBC (Bld) 1.5 % 0.0 - 2.0 % [facility] Interpretation and review of laboratory results Abnormal [facility] IPF [address] [facility] [employer] Lymphocytes (Bld) [#/Vol] 1.5 10*3/uL 1.0 - 4.3 10*3/uL [facility] [employer] Lymphocytes/100 WBC (Bld) 12.3 % Low 15.0 - 45.0 % [facility] MCH (RBC) [Entitic mass] 29 pg 26. 0 - 34.0 pg [facility] MCHC (RBC) [Mass/Vol] 33.5 % 30.5 - 36.0 % [facility] MCV (RBC) [Entitic vol] 86.6 fL 77.0 - 99.[address] [facility] [employer] Monocytes (Bld) [#/Vol] 1.3 10*3/uL High 0.0 - 0.9 10*3/uL [facility] Monocytes/100 WBC (Bld) 10.8 % 5.0 - 13.0 % [facility] Neutrophils (Bld) [#/Vol] 9.1 10*3/uL High 1.8 - 7.5 10*3/uL [facility] Neutrophils/100 WBC (Bld) 75.1 % 38.0 - 82.0 % [facility] [employer] Nucleated RBC/100 WBC (Bld) [Ratio] 0 % [facility] [employer] Platelet mean volume (Bld) [Entitic vol] 9.6 fL 9.0 - 12.7 fL [facility] Platelets (Bld) [#/Vol] 153 10*3/uL 140 - 440 10*3/uL [facility] RBC (Bld) [#/Vol] 4.86 10*6/uL 3.80 - 5.2 0 10*6/uL [facility] WBC (Bld) [#/Vol] 12.1 10*3/uL High 3.6 - 10.7 10*3/uL [facility] CBC WITH AUTO DIFFERENTIALon 08-07-2024 Basophils (Bld) [#/Vol] 0.0 10*3/uL Normal 0.0-0.2 [facility] Comment on above: Performed By: #### L [id number] ####Hot Tar Roofer Helper: JOHAN BHANDARI ([phone])[facility] ([facility])[address] [place] [address] Basophils/100 WBC (Bld) 0.1 % Normal 0.0-2.0 S [facility] Comment on above: Performed By: #### L [id number] ####Hot Tar Roofer Helper: JOHAN BHANDARI ([phone])[facility] ([facility])[address] Eosinophils (Bld) [#/Vol] 0.0 10*3/uL Normal 0.0-0.5 [facility] Comment on above: Performed By: #### L [id number] ####Hot Tar Roofer Helper: JOHAN BHANDARI ([phone])[facility] [place] ([facility])[address] Eosinophils/100 WBC (Bld) 0.2 % Normal 0.0-6.0 [facility] Comment on above: Performed By: #### L [id number] ####Hot Tar Roofer Helper: JOHAN BHANDARI ([phone])[facility] [place] ([facility])[address] Erythrocyte distribution width (RBC) [Ratio] 13.5 % Normal 11.5-15.0 [facility] Comment on above: Performed By: #### L [id number] ####Hot Tar Roofer Helper: JOHAN BHANDARI ([phone])[facility] [place] ([facility])[address] [place] [address] Hematocrit (Bld) [Volume fraction] 42.1 % Normal 35.0-47.0 [facility] Comment on above: Performed By: #### L [id number] ####Hot Tar Roofer Helper: JOHAN BHANDARI ([phone])[facility] [place] ([facility])[address] Hemoglobin (Bld) [Mass/Vol] 14.1 g/dL Normal 11.7-16.0 [facility] Comment on above: Performed By: #### L [id number] ####Hot Tar Roofer Helper: JOHAN BHANDARI ([phone])[facility] [place] ([facility])[address] IMMATURE GRANS % 1.5 % Normal 0.0-2.0 [facility] Comment on above: Performed By: #### L [id number] ####Hot Tar Roofer Helper: JOHAN BHANDARI ([phone])[facility] [place] ([facility])[address] IMMATURE GRANS ABSOLUTE 0.2 10*3/uL High <0.1 [facility] Comment on above: Performed By: #### L [id number] ####Hot Tar Roofer Helper: JOHAN BHANDARI ([phone])[facility] [place] ([facility])[address] IPF 1 Normal [facility] Comment on above: Performed By: #### L [id number] ####Hot Tar Roofer Helper: JOHAN BHANDARI ([phone])[facility] [place] ([facility])[address] Lymphocytes (Bld) [#/Vol] 1.5 10*3/uL Normal 1.0-4.3 [facility] Comment on above: Performed By: #### L [id number] ####Hot Tar Roofer Helper: JOHAN BHANDARI ([phone])[facility] [place] ([facility])[address] Lymphocytes/100 WBC (Bld) 12.3 % Low 15.0-45.0 [facility] Comment on above: Performed By: #### L [id number] ####Hot Tar Roofer Helper: JOHAN BHANDARI ([phone])[facility] [place] ([facility])[address] MCH (RBC) [Entitic mass] 29.0 pg Normal 26.0-34.0 [facility] Comment on above: Performed By: #### L [id number] ####Hot Tar Roofer Helper: JOHAN BHANDARI ([phone])[facility] [place] ([facility])[address] MCHC 33.5 % Normal 30.5-36.0 [facility] Comment on above: Performed By: #### L [id number] ####Hot Tar Roofer Helper: JOHAN BHANDARI ([phone])[facility] [place] ([facility])[address] MCV (RBC) [Entitic vol] 86.6 fL Normal 77.0-99.0 S [facility] Comment on above: Performed By: #### L [id number] ####Hot Tar Roofer Helper: JOHAN WATTSCANDY ([phone])[facility] [place] ([facility])[address] Monocytes (Bld) [#/Vol] 1.3 10*3/uL High 0.0-0.9 [facility] Comment on above: Performed By: #### L [id number] ####Hot Tar Roofer Helper: JOHAN WATTSCANDY ([phone])[facility] [place] ([facility])[address] Monocytes/100 WBC (Bld) 10.8 % Normal 5.0-13.0 S [facility] Comment on above: Performed By: #### L [id number] ####Hot Tar Roofer Helper: JOHAN WATTSCANDY ([phone])[facility] [place] ([facility])[address] NEUTROPHILS ABSOLUTE 9.1 10*3/uL High 1.8-7.5 [facility] Comment on above: Performed By: #### L [id number] ####Hot Tar Roofer Helper: JOHAN BHANDARI ([phone])[facility] [place] ([facility])[address] Neutrophils/100 WBC (Bld) 75.1 % Normal 38.0-82.0 [facility] Comment on above: Performed By: #### L [id number] ####Hot Tar Roofer Helper: JOHAN WATTSCANDY ([phone])[facility] [place] ([facility])[address] [place] [address] [place] NRBC 0.0 /100 WBCs Normal 0.0-2.0 [facility] Comment on above: Performed By: #### L [id number] ####Hot Tar Roofer Helper: JOHAN BHANDARI ([phone])[facility] ([facility])[address] Platelet mean volume (Bld) [Entitic vol] 9.6 fL Normal 9.0-12.7 [facility] Comment on above: Performed By: #### L [id number] ####Hot Tar Roofer Helper: JOHAN BHANDARI ([phone])[facility] [place] ([facility])[address] Platelets (Bld) [#/Vol] 153 10*3/uL Normal 140-440 [facility] Comment on above: Performed By: #### L [id number] ####Hot Tar Roofer Helper: JOHAN BHANDARI ([phone])[facility] [place] ([facility])[address] RBC (Bld) [#/Vol] 4.86 10*6/uL Normal 3.80-5.20 [facility] Comment on above: Performed By: #### L [id number] ####Hot Tar Roofer Helper: JOHAN BHANDARI ([phone])[facility] [place] ([facility])[address] WBC (Bld) [#/Vol] 12.1 10*3/uL High 3.6-10.7 [facility] Comment on above: Performed By: #### L [id number] ####Hot Tar Roofer Helper: JOHAN BHANDARI ([phone])[facility] [place] ([facility])[address] COMPREHENSIVE METABOLIC PANE Alex 08-07-2024 Albumin [Mass/Vol] 2.8 g/dL Low 3.4-4.8 [facility] Comment on above: Performed By: #### L [id number] ####Hot Tar Roofer Helper: JOHAN BHANDARI ([phone])[facility] [place] ([facility])[address] ALP [Catalytic activity/Vol] 78 U/L Normal 40-150 [facility] Comment on above: Performed By: #### L [id number] ####Hot Tar Roofer Helper: JOHAN BHANDARI ([phone])[facility] ([facility])[address] ALT [Catalytic activity/Vol] 10 U/L Normal <30 [facility] Comment on above: Performed By: #### L [id number] ####Hot Tar Roofer Helper: JOHAN BHANDARI ([phone])[facility] [place] ([facility])[address] Anion gap [Moles/Vol] 11 mmol/L Normal 3-13 [facility] Comment on above: Performed By: #### L [id number] ####Hot Tar Roofer Helper: JOHAN BHANDARI ([phone])[facility] (HLAB)[address] AST [Catalytic activity/Vol] 22 U/L Normal <34 [facility] Comment on above: Performed By: #### L [id number] ####Hot Tar Roofer Helper: JOHAN BHANDARI ([phone])[facility] ([facility])[address] Bilirubin [Mass/Vol] 0.4 mg/dL Normal <1.2 [facility] Comment on above: Performed By: #### L [id number] ####Hot Tar Roofer Helper: JOHAN BHANDARI ([phone])[facility] ([facility])[address] Calcium [Mass/Vol] 9.8 mg/dL Normal 8.8-10.0 [facility] Comment on above: Performed By: #### L [id number] ####Hot Tar Roofer Helper: JOHAN BHANDARI ([phone])[facility] ([facility])[address] Chloride [Moles/Vol] 101 mmol/L Normal 98-107 [facility] Comment on above: Performed By: #### L [id number] ####Hot Tar Roofer Helper: JOHAN BHANDARI ([phone])[facility] [place] ([facility])[address] CO2 [Moles/Vol] 26 mmol/L Normal 23-31 [facility] Comment on above: Performed By: #### L [id number] ####Hot Tar Roofer Helper: JOHAN BHANDARI ([phone])[facility] ([facility])[address] Creatinine [Mass/Vol] 0.79 mg/dL Normal 0.57-1.11 [facility] Comment on above: Performed By: #### L [id number] ####Hot Tar Roofer Helper: JOHAN BHANDARI ([phone])[facility] ([facility])[address] GLOMERULAR FILTRATION RATE ML/MIN/1.73 SQ M.PREDICTED 73.4 mL/min/1.73m*2 Normal >60.0 [facility] Comment on above: Result Comment: Calc ulation based on the Chronic Kidney Disease Epidemiology Collaboration (CKD-EPI) equation refit without adjustment for race Performed By: #### L [id number] ####Hot Tar Roofer Helper: JOHAN BHANDARI ([phone])[facility] ([facility])[address] [place] [address] Glucose [Mass/Vol] 74 mg/dL Low 82-115 [facility] Comment on above: Performed By: #### L AB17 ####Hot Tar Roofer Helper: JOHAN BHANDARI ([phone])[facility] ([facility])[address] Potassium [Moles/Vol] 4.4 mmol/L Normal 3.5-5.1 [facility] Comment on above: Result Comment: [facility] potassium values may be up to 0.5 mmol/L lower than serum values. Performed By: #### L [id number] ####Hot Tar Roofer Helper: JOHAN BHANDARI ([phone])[facility] (SBHLAB)[address] Protein [Mass/Vol] 7.2 g/dL Normal 6.4-8.3 [facility] Comment on above: Performed By: #### L AB17 ####Hot Tar Roofer Helper: JOHAN BHANDARI ([id number])[facility] M[facility]DA (SBHLAB)[address] Sodium [Moles/Vol] 138 mmol/L Normal 136-145 [facility] Comment on above: Performed By: #### L AB17 ####Hot Tar Roofer Helper: JOHAN DILLONCER ([phone])[facility] (SBHLAB)[address] Urea nitrogen [Mass/Vol] 28 mg/dL High 9-23 [facility] Comment on above: Performed By: #### L AB17 ####Hot Tar Roofer Helper: JOHANNICKY WATTSCANDY ([id number])[facility] CENTERSujata [facility] (SBHLAB)[address] [place] [address] Comprehensive metabolic 1998 panelon 08-07-2024 Albumin [Mass/Vol] 2.8 g/dL Low 3.4 - 4.8 g/dL [facility] ALP [Catalytic activity/Vol] 78 U/L 40 - 150 U/L [facility] ALT [Catalytic activity/Vol] 10 U/L [facility]L [facility] Anion gap [Moles/Vol] 11 mmol/L 3 - 13 mmol/L [facility] AST [Catalytic activity/Vol] 22 U/L [facility] - 34 U/L [facility] Bilirubin [Mass/Vol] 0.4 mg/dL [facility] - 1.2 mg/dL [facility] Calcium [Mass/Vol] 9.8 mg/dL 8.8 - 10. 0 mg/dL [facility] Chloride [Moles/Vol] 101 mmol/L 98 - 10 7 mmol/L [facility] CO2 [Moles/Vol] 26 mmol/L 23 - 31 mmol/L [facility] Creatinine [Mass/Vol] 0.79 mg/dL 0.57 - 1.11 mg/dL [facility] GFR/1.73 sq M.predicted (S/P/Bld) [Vol rate/Area] 73.4 mL/min - PINF [facility] Comment on above: Calculation based on the Chronic Kidney Disease Epidemiology Collaboration (CKD-EPI) equation refit without adjustment for race Glucose [Mass/Vol] 74 mg/dL Low 82 - 115 mg/dL [facility] Interpretation and review of laboratory results Abnormal [facility] Potassium [Moles/Vol] 4.4 mmol/L 3.5 - 5.1 mmol/L [facility] Comment on above: Plasma potassium gustavo ues may be up to 0.5 mmol/L lower than serum values. Protein [Mass/Vol] 7.2 g/dL 6.4 - 8.3 g/dL [facility] Sodium [Moles/Vol] 138 mmol/L 136 - 145 mmol/L [facility] Urea nitrogen [Mass/Vol] 28 mg/dL High 9 - 23 mg/dL [facility] Progress Noteon 08-07-2024 Progress Note PHYSICAL THERAPY [facility] Treatment Note Name/MRN: Krish Peralta ([id number]) Date of : 1940 Age: 83 y.o. Room/Bed: [facility] A Visit #: 2 out of 5 Discharge Recommendation: Residential Facility Equipment Needed: No Assessment Pt seated [...] (x1 ther ex) Clary Wilson PTA Normal [facility] Bacteria identified Aer cx N om (Lower resp)Ordered By: Marianna Chapman on 08-06-2024 Beta Lactamase Negative [facility] Gram Stain Result Few Epithelial cells per low power field Abnormal [facility] Gram Stain Result Moderate Polymorphonuclear leukocytes per low power field Abnormal [facility] Gram Stain Result Positive Abnormal [facility] ealth Gram Stain Result Negative Abnormal [facility] ealth Interpretation and review of laboratory results Abnormal [facility] CBC W Auto Differential pane l (Bld)on 08-06-2024 Basophils (Bld) [#/Vol] 0 10*3/uL 0.0 - 0.2 10*3/uL [facility] Basophils/100 WBC (Bld) 0.1 % 0.0 - 2.0 % [facility] Eosinophils (Bld) [#/Vol] 0 10*3/uL 0.0 - 0.5 10*3/uL [facility] Eosinophils/100 WBC (Bld) 0 % 0.0 - 6.0 % [facility] Erythrocyte distribution width (RBC) [Ratio] 13.2 % 11.5 - 15.0 % [facility] Hematocrit (Bld) [Volume fraction] 39.6 % 35.0 - 47.0 % [facility] Hemoglobin (Bld) [Mass/Vol] 13 g/dL 11.7 - 16.0 g/dL [facility] Immature granulocytes (Bld) [#/Vol] 0.2 10*3/uL High NINF - 0.1 10*3/uL [facility] Immature granulocytes/100 WBC (Bld) 1.2 % 0.0 - 2.0 % [facility] Interpretation and review of laboratory results Abnormal [facility] Lymphocytes (Bld) [#/Vol] 1.1 10*3/uL 1.0 - 4.3 10*3/uL [facility] Lymphocytes/100 WBC (Bld) 8 % Low 15.0 - 45.0 % [facility] MCH (RBC) [Entitic mass] 29 pg 26. 0 - 34.0 pg [facility] MCHC (RBC) [Mass/Vol] 32.8 % 30.5 - 36.0 % [facility] MCV (RBC) [Entitic vol] 88.2 fL 77.0 - 99.0 fL [facility] Monocytes (Bld) [#/Vol] 0.8 10*3/uL 0.0 - 0.9 10*3/uL [facility] Monocytes/100 WBC (Bld) 5.4 % 5.0 - 13.0 % [facility] Neutrophils (Bld) [#/Vol] 12.1 10*3/uL High 1.8 - 7.5 10*3/uL [facility] Neutrophils/100 WBC (Bld) 85.3 % High 38.0 - 82.0 % [facility] Nucleated RBC/100 WBC (Bld) [Ratio] 0 % [facility] Platelet mean volume (Bld) [Entitic vol] 9 fL 9.0 - 12.7 fL [facility] Platelets (Bld) [#/Vol] 160 10*3/uL 140 - 440 10*3/uL [facility] RBC (Bld) [#/Vol] 4.49 10*6/uL 3.80 - 5.2 0 10*6/uL [facility] WBC (Bld) [#/Vol] 14.1 10*3/uL High 3.6 - 10.7 10*3/uL [facility] CBC WITH AUTO DIFFERENTIALon 08-06-2024 Basophils (Bld) [#/Vol] 0.0 10*3/uL Normal 0.0-0.2 [facility] Comment on above: Performed By: #### L [id number] ####Hot Tar Roofer Helper: JOHAN BHANDARI ([phone])[facility] (SBAB)[address] Basophils/100 WBC (Bld) 0.1 % Normal 0.0-2.0 S [facility] Comment on above: Performed By: #### L [id number] ####Hot Tar Roofer Helper: JOHAN BHANDARI ([phone])[facility] (SBAB)[address] [place] [address] [place] Eosinophils (Bld) [#/Vol] 0.0 10*3/uL Normal 0.0-0.5 [facility] Comment on above: Performed By: #### L [id number] ####Hot Tar Roofer Helper: JOHAN BHANDARI ([phone])[facility] (SBAB)[address] [place] [address] [place] Eosinophils/100 WBC (Bld) 0.0 % Normal 0.0-6.0 [facility] Comment on above: Performed By: #### L [id number] ####Hot Tar Roofer Helper: JOHAN [id number])[facility] CENTERSujata [facility] (SBHLAB)[address] Erythrocyte distribution width (RBC) [Ratio] 13.2 % Normal 11.5-15.0 [facility] Comment on above: Performed By: #### L [id number] ####Hot Tar Roofer Helper: JOHAN BHANDARI ([phone])[facility] ([facility])[address] Hematocrit (Bld) [Volume fraction] 39.6 % Normal 35.0-47.0 [facility] Comment on above: Performed By: #### L [id number] ####Hot Tar Roofer Helper: JOHAN BHANDARI ([phone])[facility] ([facility])[address] [place] [address] Hemoglobin (Bld) [Mass/Vol] 13.0 g/dL Normal 11.7-16.0 [facility] Comment on above: Performed By: #### L [id number] ####Hot Tar Roofer Helper: JOHAN BHANDARI ([phone])[facility] ([facility])[address] [place] [address] IMMATURE GRANS % 1.2 % Normal 0.0-2.0 [facility] Comment on above: Performed By: #### L [id number] ####Hot Tar Roofer Helper: JOHAN BHANDARI ([phone])[facility] ([facility])[address] [place] [address] IMMATURE GRANS ABSOLUTE 0.2 10*3/uL High <0.1 [facility] Comment on above: Performed By: #### L [id number] ####Hot Tar Roofer Helper: JOHAN BHANDARI ([phone])[facility] ([facility])[address] [place] [address] Lymphocytes (Bld) [#/Vol] 1.1 10*3/uL Normal 1.0-4.3 [facility] Comment on above: Performed By: #### L [id number] ####Hot Tar Roofer Helper: JOHAN BHANDARI ([phone])[facility] (SBHLAB)[address] Lymphocytes/100 WBC (Bld) 8.0 % Low 15.0-45.0 [facility] Comment on above: Performed By: #### L [id number] ####Hot Tar Roofer Helper: JOHAN BHANDARI ([phone])[facility]ENTERA [facility] (SBHLAB)[address] MCH (RBC) [Entitic mass] 29.0 pg Normal 26.0-34.0 [facility] Comment on above: Performed By: #### L [id number] ####Hot Tar Roofer Helper: JOHAN BHANDARI ([phone])[facility]ENTERA [facility] (SBHLAB)[address] [place] [address] MCHC 32.8 % Normal 30.5-36.0 [facility] Comment on above: Performed By: #### L [id number] ####Hot Tar Roofer Helper: JOHAN BHANDARI ([phone])[facility] CENTERSujata [facility] (SBHLAB)[address] [place] [address] MCV (RBC) [Entitic vol] 88.2 fL Normal 77.0-99.0 S [facility] Comment on above: Performed By: #### L [id number] ####Hot Tar Roofer Helper: JOHAN BHANDARI ([phone])[facility] CENTERSujata [facility] CENTERIsabela (SBHLAB)[address] [place] [address] Monocytes (Bld) [#/Vol] 0.8 10*3/uL Normal 0.0-0.9 [facility] Comment on above: Performed By: #### L [id number] ####Hot Tar Roofer Helper: JOHAN BHANDARI ([phone])[facility]A [facility] (SBHLAB)[address] Monocytes/100 WBC (Bld) 5.4 % Normal 5.0-13.0 S [facility] Comment on above: Performed By: #### L [id number] ####Hot Tar Roofer Helper: JOHAN BHANDARI ([phone])[facility]A [place] (SBHLAB)[address] NEUTROPHILS ABSOLUTE 12.1 10*3/uL High 1.8-7.5 [facility] Comment on above: Performed By: #### L [id number] ####Hot Tar Roofer Helper: JOHAN BHANDARI ([phone])[facility]A [place] (SBHLAB)[address] Neutrophils/100 WBC (Bld) 85.3 % High 38.0-82.0 [facility] Comment on above: Performed By: #### L [id number] ####Hot Tar Roofer Helper: JOHAN BHANDARI ([phone])[facility]A [place] (SBHLAB)[address] NRBC 0.0 /100 WBCs Normal 0.0-2.0 [facility] Comment on above: Performed By: #### L [id number] ####Hot Tar Roofer Helper: JOHAN BHANDARI ([phone])[facility]A [place] (SBHLAB)[address] Platelet mean volume (Bld) [Entitic vol] 9.0 fL Normal 9.0-12.7 [facility] Comment on above: Performed By: #### L [id number] ####Hot Tar Roofer Helper: JOHAN BHANDARI ([phone])[facility]A [place] (SBHLAB)[address] [place] [address] [place] Platelets (Bld) [#/Vol] 160 10*3/uL Normal 140-440 [facility] Comment on above: Performed By: #### L [id number] ####Hot Tar Roofer Helper: JOHAN BHANDARI ([phone])[facility]A [place] (SBHLAB)[address] [place] [address] [place] RBC (Bld) [#/Vol] 4.49 10*6/uL Normal 3.80-5.20 [facility] Comment on above: Performed By: #### L [id number] ####Hot Tar Roofer Helper: JOHAN BHANDARI ([phone])[facility] (SBHLAB)[address] WBC (Bld) [#/Vol] 14.1 10*3/uL High 3.6-10.7 [facility] Comment on above: Performed By: #### L [id number] ####Hot Tar Roofer Helper: JOHAN BHANDARI ([phone])[facility]A [place] (SBHLAB)[address] COMPREHENSIVE METABOLIC PANE Alex 08-06-2024 Albumin [Mass/Vol] 2.8 g/dL Low 3.4-4.8 [facility] Comment on above: Performed By: #### L [id number] ####Hot Tar Roofer Helper: JOHAN BHANDARI ([phone])[facility] (SBHLAB)[address] ALP [Catalytic activity/Vol] 83 U/L Normal 40-150 [facility] Comment on above: Performed By: #### L [id number] ####Hot Tar Roofer Helper: JOHAN BHANDARI ([phone])[facility]A [place] (SBHLAB)[address] ALT [Catalytic activity/Vol] 6 U/L Normal <30 [facility] Comment on above: Performed By: #### L [id number] ####Hot Tar Roofer Helper: JOHAN BHANDARI ([phone])[facility]A [place] (SBHLAB)[address] Anion gap [Moles/Vol] 10 mmol/L Normal 3-13 [facility] Comment on above: Performed By: #### L [id number] ####Hot Tar Roofer Helper: JOHAN BHANDARI ([phone])[facility]A [place] (SBHLAB)[address] AST [Catalytic activity/Vol] 16 U/L Normal <34 [facility] Comment on above: Performed By: #### L [id number] ####Hot Tar Roofer Helper: JOHAN BHANDARI ([phone])[facility]A [place] (SBHLAB)[address] Bilirubin [Mass/Vol] 0.4 mg/dL Normal <1.[address] [facility] Comment on above: Performed By: #### L [id number] ####Hot Tar Roofer Helper: JOHAN BHANDARI ([phone])[facility] CENTERSujata [place] (SBHLAB)[address] Calcium [Mass/Vol] 10.3 mg/dL High 8.8-10.0 [facility] Comment on above: Performed By: #### L [id number] ####Hot Tar Roofer Helper: JOHAN BHANDARI ([phone])[facility]A [facility] (SBHLAB)[address] Chloride [Moles/Vol] 95 mmol/L Low 98-[address] [facility] Comment on above: Performed By: #### L [id number] ####Hot Tar Roofer Helper: JOHAN BHANDARI ([phone])[facility]A [facility] (SB[facility])[address] CO2 [Moles/Vol] 30 mmol/L Normal 23-31 [facility] Comment on above: Performed By: #### L [id number] ####Hot Tar Roofer Helper: JOHAN BHANDARI ([phone])[facility]ENTERA [facility] (SBHLAB)[address] Creatinine [Mass/Vol] 0.84 mg/dL Normal 0.57-1.11 [facility] Comment on above: Performed By: #### L [id number] ####Hot Tar Roofer Helper: JOHAN BHANDARI ([phone])[facility]ENTERA [facility] (SBHLAB)[address] [place] [address] [place] GLOMERULAR FILTRATION RATE ML/MIN/1.73 SQ M.PREDICTED 68.2 mL/min/1.73m*2 Normal >60.0 [facility] Comment on above: Result Comment: Calc ulation based on the Chronic Kidney Disease Epidemiology Collaboration (CKD-EPI) equation refit without adjustment for race Performed By: #### L [id number] ####Hot Tar Roofer Helper: JOHAN BHANDARI ([phone])[facility]ENTERSujata [place] (SBHLAB)[address] Glucose [Mass/Vol] 123 mg/dL High 82-115 [facility] Comment on above: Performed By: #### L [id number] ####Hot Tar Roofer Helper: JOHAN BHANDARI ([phone])[facility]ENTERSujata [place] (SBHLAB)[address] Potassium [Moles/Vol] 3.9 mmol/L Normal 3.5-5.1 [facility] Comment on above: Result Comment: [facility] potassium values may be up to 0.5 mmol/L lower than serum values. Performed By: #### L [id number] ####Hot Tar Roofer Helper: JOHAN BHANDARI ([phone])[facility] CENTERSujata [facility] (SBHLAB)[address] Protein [Mass/Vol] 7.7 g/dL Normal 6.4-8.3 [facility] Comment on above: Performed By: #### L [id number] ####Hot Tar Roofer Helper: JOHAN BHANDARI ([phone])[facility] (SBHLAB)[address] Sodium [Moles/Vol] 135 mmol/L Low 136-145 [facility] Comment on above: Performed By: #### L [id number] ####Hot Tar Roofer Helper: JOHAN BHANDARI ([phone])[facility] (SBHLAB)[address] Urea nitrogen [Mass/Vol] 27 mg/dL High 9-23 [facility] Comment on above: Performed By: #### L [id number] ####Hot Tar Roofer Helper: JOHAN BHANDARI ([phone])[facility] (SBHLAB)[address] Comprehensive metabolic 1998 panelon 08-06-2024 Albumin [Mass/Vol] 2.8 g/dL Low 3.4 - 4.8 g/dL [facility] ALP [Catalytic activity/Vol] 83 U/L 40 - 150 U/L [facility] ALT [Catalytic activity/Vol] 6 U/L NIN - 30 U/L [facility] Anion gap [Moles/Vol] 10 mmol/L 3 - 13 mmol/L [facility] AST [Catalytic activity/Vol] 16 U/L [facility] - 34 U/L [facility] Bilirubin [Mass/Vol] 0.4 mg/dL NINF - 1.2 mg/dL [facility] Calcium [Mass/Vol] 10.3 mg/dL High 8.8 - 10. 0 mg/dL [facility] Chloride [Moles/Vol] 95 mmol/L Low 98 - 10 7 mmol/L [facility] CO2 [Moles/Vol] 30 mmol/L 23 - 31 mmol/L [facility] Creatinine [Mass/Vol] 0.84 mg/dL 0.57 - 1.11 mg/dL [facility] GFR/1.73 sq M.predicted (S/P/Bld) [Vol rate/Area] 68.2 mL/min - PINF [facility] Comment on above: Calculation based on the Chronic Kidney Disease Epidemiology Collaboration (CKD-EPI) equation refit without adjustment for race Glucose [Mass/Vol] 123 mg/dL High 82 - 115 mg/dL [facility] Interpretation and review of laboratory results Abnormal [facility] Potassium [Moles/Vol] 3.9 mmol/L 3.5 - 5.1 mmol/L [facility] Comment on above: Plasma potassium gustavo ues may be up to 0.5 mmol/L lower than serum values. Protein [Mass/Vol] 7.7 g/dL 6.4 - 8.3 g/dL [facility] Sodium [Moles/Vol] 135 mmol/L Low 136 - 145 mmol/L [facility] Urea nitrogen [Mass/Vol] 27 mg/dL High 9 - 23 mg/dL [facility] Laboratory - Microbiology an d Antimicrobial susceptibilityOrdered By: Marianna Chapman on 08-06-2024 Bacteria identified Aer cx Nom (Lower resp) Moderate respiratory suri present. [facility] Bacteria identified Aer cx Nom (Lower resp) Many Haemophilus influenzae Abnormal [facility] Progress Noteon 08-06-2024 Progress Note [facility] Pulmonary Medicine [address] [place] [phone] Patient - Krish Peralta, Age - 83 [...] goal SpO (more content not included)... Normal [facility] [employer] [facility] US Heart TransthoracicOrdere d By: Reji Lay on 08-06-2024 Ao Root Index 1.86 cm/m2 [facility] Work Phone: Aortic Arch 2.7 cm [facility] Work Phone: Aortic Root 3.6 cm [facility] Work Phone: Aortic Sinus Valsalva 3.6 cm [facility] [employer] Work Phone: Aortic Sinus Valsalva Index 1.86 cm/m2 [facility] [employer] Work Phone: Aortic valve Mean systole pressure gradient by US.doppler derived full Bernoulli 9 mmHg [facility] Work Phone: Aortic valve Orifice area by US 3.8 cm2 [facility] Work Phone: Aortic valve Peak systolic flow by US.doppler 1.4 m/s [facility] Work Phone: Ascending Aorta 4.5 cm [facility] Work Phone: Ascending Aorta Index 2.32 cm/m2 [facility] [employer] Work Phone: AV Area by Peak Velocity 1.9 cm2 [facility] Work Phone: AV Area by VTI 2.3 cm2 [facility] Work Phone: AV AT 91.34 ms [facility] Work Phone: AV Peak Gradient 15 mmHg [facility] Work Phone: AV Peak Velocity 2 m/s [facility] Work Phone: AV Velocity Ratio 0.5 [facility] Work Phone: AV VTI 36.[address] [facility] Work Phone: WILLIE/BSA Peak Velocity 1 cm2/m2 [facility] Work Phone: WILLIE/BSA VTI 1.2 cm2/m2 [facility] Work Phone: E/E' Lateral 10.[address] [facility] Work Phone: E/E' Ratio (Averaged) 12.51 [facility] Work Phone: E/E' Septal 14.6 [facility] Work Phone: Est. RA Pressure 3 mmHg [facility] Work Phone: Fractional Shortening 2D 47 % 28 - 44 % [facility] [employer] Work Phone: Interpretation and review of laboratory results Abnormal [facility] [employer] Work Phone: IVC Diameter 2.[address] [facility] [employer] Work Phone: IVSd 1.6 cm Abnormal 0.6 - 0.9 cm [facility] Work Phone: LA Diameter 3.1 cm [facility] Work Phone: LA Size Index 1.6 cm/m2 [facility] Work Phone: LA Volume 4C 61 mL Abnormal 22 - [address] [facility] [employer] Work Phone: LA Volume Index 4C 31 mL/m2 16 - 34 mL/m2 [facility] Work Phone: LA/AO Root Ratio 0.86 [facility] Work Phone: LV E' Lateral Velocity 7 cm/s [facility] Work Phone: LV E' Septal Velocity 5 cm/s [facility] [employer] Work Phone: LV Mass 2D 181.4 g Abnormal 67 - [address] [facility] Work Phone: LV Mass 2D Index 93.5 g/m2 43 - 95 g/m2 [employer] Work Phone: LV RWT Ratio 0.94 [employer] Work Phone: LVIDd 3.2 cm Abnormal 3.9 - 5.3 cm [employer] Work Phone: LVIDd Index 1.65 cm/m2 [facility] Work Phone: LVIDs 1.7 cm [employer] Work Phone: LVIDs Index 0.88 cm/m2 [employer] Work Phone: LVOT Cardiac Output 6.5 liter/mi nut e [facility] Work Phone: LVOT Diameter 2.2 cm [facility] [employer] [facility] Work Phone: LVOT Mean Gradient 2 mmHg [facility] Work Phone: LVOT Peak Gradient 4 mmHg [facility] Work Phone: LVOT Peak Velocity 1 m/s [facility] Work Phone: LVOT Stroke Volume Index 41.7 mL/m2 [facility] Work Phone: LVOT SV 80.9 ml [facility] Work Phone: LVOT VTI 21.3 cm [facility] Work Phone: LVOT:AV VTI Index 0.[address] [facility] [employer] [facility]alth Work Phone: LVPWd 1.5 cm Abnormal 0.6 - 0.9 cm [facility] Work Phone: MV A Velocity 0.61 m/s [facility] Work Phone: MV E Velocity 0.73 m/s [facility] Work Phone: MV E Wave Deceleration Time 206.8 ms [facility] Work Phone: MV E/A 1.2 [facility] [employer] Work Phone: RV Free Wall Peak S' 15 cm/s [facility] Work Phone: Sinotubular Junction 3 cm [facility] Work Phone: [facility] Work Phone: US Heart Transthoracicon Left Ventricle: [...] study. CV CPACS XR CHEST 1 VIEWon 05-30-2025 XR CHEST 1 VIEW Patient Name: KRISH PERALTA : 1940 Exam [...] Electronically Signed Date/Time: 08/06/2024 12:12 PM EDT [facility] XR Chest Single viewon 08-06 Lines, [...] Electronically Signed Date/Time: 08/06/2024 12:12 PM EDT [facility] [employer] SYSTEM Patient Name: KRISH PERALTA : 1940 Exam Date/Time: 08/06/2024 12:09 Procedure: XR CHEST 1 VIEW Ordering Provider: NERI MANSUR Reason For Exam: follow-up pneumonia EXAMINATION: CHEST RADIOGRAPH (SINGLE VIEW AP OR PA) Clinical History: follow-up pneumonia Comparison: Radiograph 08/03/2024 RESULT: See impression [facility] RADIOLOGY [facility] Ki Payne MD - 08/06/2024 [...] Electronically Signed Date/Time: 08/06/2024 12:12 PM EDT [facility] Radiology Study observation (narrative) [facility] alth XR Chest Single viewOrdered By: Ki Payne on 08-06-[address] [facility] [employer] Work Phone: 30on 08-05-2024 30 Problem: Knowledge Deficit Goal: Patient/family/caregi krysta demonstrates understanding of disease process, treatment plan, medications, and discharge instructions Outcome: Progressing Problem: Potential for Compromised Skin Integrity Goal: Skin Integrity is Maintained or Improved Outcome: Progressing Goal: Nutritional status is improving Outcome: Progressing Problem: Urinary Incontinence Goal: Perineal skin integrity is maintained or improved Outcome: Progressing Normal [facility] 30 Problem: Knowledge Deficit Goal: [...] discharge instructions Outcome: Not Progressing Normal [facility] Consulton 08-05-2024 Consult Nutrition Assessment Type and [...] Unable to assess Fluid Accumulation: Mild Extremities 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 Presented to [facility] via EMS from SNF with low pulse [...] On: Kcal/kg Weight Used for Energy Requirements: [place] Weight for Energy Calculation (kg): 45 kg Total Energy Requirements (kcals/day): 6733-7965 (25-30 kcal/kg IBW) Weight Used for Protein Requirements: [place] Weight in Kg Used for Protein Requirements: [...] lb) (11/11/23) % Weight Change (Calculated): 11.7 [place] Body Weight (lbs) (Calculated): 100 lbs [place] Body Weight (Kg) (Calculated): 45 kg % [place] Body Weight (Calculated): 220 % BMI (kg/m2) [...] Discharge Planning: Continue current diet Zuleyka Saul, RDN, LDN, Contact: *[phone] [facility] Consult [facility] Wound Care CONSULT Note Krish Peralta AGE: 83 y.o. GENDER: female : 1940 Subjective: HISTORY of PRESENT ILLNESS HPI Krish Peralta is a 83 y.o. female who presents for a wound consult. HPI: Ms. Peralta is a 83 y.o. female with past medical history significant for COPD. Patient presented to the emergency room from longterm facility for shortness of breath. Patient admitted [...] to follow Recommend to follow up at [facility] Outpatient wound care center after hospital [...] furo (more content not included)... Normal [facility] Nursing Noteon 08-05-2024 Nursing Note Patient informed PO steroids were changed back to IV steroids. Patient continues to refuse steroids due to feeling restless and irritable. [facility] Nursing Note RN at bedside to administer PO Prednisone. Patient adamantly refusing to take steroids because they make her restless and irritable. Patient requesting more hydroxyzine because she already feels restless and irritable. RN informed patient of next available time for hydroxyzine to be administered. Dr. Givens notified and RN requested increase in hydroxyzine per patient request. [facility] Progress Noteon 08-05-2024 Progress Note Found pt. On 12L HFN C saturation 97% at this time. Turned pt. Down to 10L HFNC and saturation was 93% prior to her breathing tx. Sent a secure chat to physician that 10L is 60% FIO2 which per our protcol is the max oxygen for the floors. Normal [facility] Progress Note PHYSICAL THERAPY [facility] Treatment Note Name/MRN: Krish Peralta ([id number]) Date of : 1940 Age: 83 y.o. Room/Bed: B2-243/B2-243 B Visit #: 1 out of 5 Discharge Recommendation: Residential Facility Equipment Needed: No Assessment Pt continues [...] Patient will complet (more content not included)... [facility] Progress Note [facility] Pulmonary Medicine [address], [place] [address] Patient - Krish Peralta, Age - 83 y.o. - 1940 Room Number - B2-243/B2-243 B Consulting - Gee Gviens MD Primary Care Physician - No primary care provider on file[id number] Date of Admission - 08/03/2024 4:21 PM [...] T (more content not included)... Normal [facility] BLOOD GAS, VENOUSon 08-05-19 25 AMOUNT OF OXYGEN Normal [facility] Comment on above: Result Comment: JERAMIE [place] COMMENTS: Assessment of oxygenation is best done with an arterial blood gas determination. Reference ranges for pO2, bicarbonate, and base excess are for mixed venous blood. Specimens drawn from a peripheral vein will often have higher values. Performed By: #### L [id number] #### Hot Tar Roofer Helper: JOHAN BHANDARI ([phone]) [facility] ([facility]) [address] [place] [address] Base excess Calc (BldV) [Moles/Vol] 9.6 mmol/L High -3.0-3.0 [facility] Comment on above: Performed By: #### L [id number] #### Hot Tar Roofer Helper: JOHAN BHANDARI ([phone]) [facility] [address] CO2 [Moles/Vol] 38.6 mmol/L High 23.0-30.0 [facility] Comment on above: Performed By: #### L [id number] #### Hot Tar Roofer Helper: JOHAN BHANDARI ([phone]) [facility] ([facility]) [address] HCO3 (Bld) [Moles/Vol] 36.8 mmol/L High 21.0-30.0 [facility] Comment on above: Performed By: #### L [id number] #### Hot Tar Roofer Helper: JOHAN WATTSCANDY ([phone]) [facility] [place] ([facility]) [address] Hemoglobin (Bld) [Mass/Vol] 13.7 g/dL Normal Screen only [facility] Comment on above: Performed By: #### L [id number] #### Hot Tar Roofer Helper: JOHAN BHANDARI ([id number]) [facility] ([facility]) [address] OXYGEN (MM HG) IN VENOUS BLOOD 54.5 mm Hg Normal [facility] Comment on above: Performed By: #### L [id number] #### Hot Tar Roofer Helper: JOHAN DILLONCER ([phone]) [facility] ([facility]) [address] OXYGEN SATURATION (%) IN VENOUS BLOOD 87.9 % Normal [facility] Comment on above: Performed By: #### L [id number] #### Hot Tar Roofer Helper: JOHAN BHANDARI ([phone]) [facility] ([facility]) [address] PCO2, MIGUEL 61.0 mm Hg High 35.0-53.0 [facility] Comment on above: Performed By: #### L [id number] #### Hot Tar Roofer Helper: JOHAN BHANDARI ([phone]) [facility] ([facility]) [address] PH VENOUS 7.398 Normal 7.320-7.420 [facility] Comment on above: Performed By: #### L [id number] #### Hot Tar Roofer Helper: JOHAN WATTSCANDY ([phone]) [facility] ([facility]) [address] SOURCE OF OXYGEN High Flow Oxygen Therapy (FiO2) Normal [facility] Comment on above: Performed By: #### L [id number] #### Hot Tar Roofer Helper: JOHAN BHANDARI ([phone]) [facility] ([facility]) [address] Consulton 08-04-2024 Consult [facility] Pulmonary Medicine [address] [place], [place] [phone] Patient - [facility]eral[id number] - 1940 Date of Admission - 08/03/2024 4:21 PM Date of Evaluation - 08/04/2024 Room - -[facility] B Hospital Day - 1 [...] - hypertension Patient is new to the [facility] pulmonary service, 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 She was admitted to [facility] 08/03/24 from SNF for increasing shortness of [...] min Stress: No Stress Concern Present (08/04/2024) [place] [place] [employer] - Occupational Stress Questionnaire Feeling of Stress : Only a little Social Connections: Unknown (08/04/2024) Social Connection and Isolation Panel [NHANES] Frequency of Communication with Friends and Family: Never Frequency of Social Gatherings with Friends and Family: Never Attends Orthodox Services: Never Active Member of Clubs or [...] hours PRN (more content not included)... Normal [facility] LEGIONELLA AND STREPTOCOCCUS URINE ANTIGENon 08-04-2024 LEGIONELLA AND STREPTOCOCCUS URINE ANTIGEN LEGIONELLA PNEUMOPHILA URINE ANTIGEN Reference Not Detected Not Detected STREPTOCOCCUS PNEUMONIAE URINE ANTIGEN Reference Not Detected Not Detected ORDER COMMENTS: Methodology: Lateral flow enzyme immunoassay This assay is approved for detection of antigens to Streptococcus pneumoniae and Legionella pneumophila serogroup 1; however, other L. pneumophila serogroups may also be detected. Normal [facility] Comment on above: Performed By: #### L [id number] #### Hot Tar Roofer Helper: ELODIA CONTRERAS ([phone]) [facility] ([facility]) [address] [place] [address] Laboratory - Chemistry and C hemistry - challengeOrdered By: Sharda Chacon on 08-04-2024 Base excess Calc (BldV) [Moles/Vol] 9.6 mmol/L High -3.0 - 3.0 mmol/L [facility] CO2 (BldV) [Partial pressure] 61 mm[Hg] High [facility] CO2 [Moles/Vol] 38.6 mmol/L High 23.0 - 30.0 mmol/L [facility] HCO3 (Bld) [Moles/Vol] 36.8 mmol/L High 21.0 - 30.0 mmol/L [facility] Oxygen (BldV) [Partial pressure] 54.5 mm[Hg] mm Hg [facility] pH (BldV) 7.398 [pH] 7.320 - 7.420 [facility] Laboratory - Hematology and Cell countsOrdered By: Sharda Chacon on 08-04-2024 Hemoglobin (Bld) [Mass/Vol] 13.7 g/dL 12.0 - 16.0 g/dl [facility] No Panel InformationOrdered By: Katarina Browning on 08-04-2024 Interpretation and review of laboratory results Normal [facility] Legionella pneumophila Ag Not detected Not Detected [facility] Streptococcus pneumoniae Ag Not detected Not Detected [facility] Methodology: Lateral flow enzyme immunoassay This assay is approved for detection of antigens to Streptococcus pneumoniae and Legionella pneumophila serogroup 1; however, other L. pneumophila serogroups may also be detected. [facility] No Panel InformationOrdered By: Sharda Chacon on 08-04-2024 Amount Of Oxygen [facility] va Interpretation and review of laboratory results Abnormal [facility] Source Of Oxygen High Flow Oxygen Therapy (FiO2) [facility] Assessment of oxygenation is best done with an arterial blood gas determination. Reference ranges for pO2, bicarbonate, and base excess are for mixed venous blood. Specimens drawn from a peripheral vein will often have higher values. [facility] No Panel Informationon 08-04 Extra Tube Hold for add-ons. [facility] Dre gong Comment on above: Auto resulted. [facility] Nursing Noteon 08-04-2024 Nursing Note Wound Care consulted for Pressure Injury Prevention. Pt's Emile score= 15 on 08/04 Pt's pressure points assessed. Pt sitting in chair upon arrival for visit. Pt's Heels, Back, Elbows, Occiput and ears all intact. Pt stood with max assist from can line operator for posterior assessment. Blanchable erythema/purple tissues noted to bilateral buttocks. DTI noted to right buttock, linear area of nonblanchable purple tissues, measures 1cm x 0.3cm, with surrounding blanchable erythema and purple tissues. See photo below. Wound BASE BRANDER group consulted. Brief in place. Pt incontinent [...] Verbalized understanding. Prevention Measures in place, including: [place] sheet with pillows/wedges, Heels elevated off bed on pillows, Zinc/Moisture Barrier ointment (applied), Waffle chair cushion (ordered for pt). Skin Care precaution order set in place. Dietitian consult order placed d/t wound. PT consult in place. D/W nursing staff. Right buttock Will continue to follow pt. Please secure chat for any questions or concerns. Mago Cavazos RN [facility] PNEUMONIA PCR PANELon 2024 PNEUMONIA PCR [...] CTX-M, IMP, KPC, NDM, OXA-48-like, and VIM. [facility] Comment on above: Performed By: #### L [id number], [id number], [id number] #### Hot Tar Roofer Helper: JOHAN BHANDARI ([id number]) [facility] ([facility]) [address] [place] [address] [facility] Progress Noteon 08-04-2024 Progress Note - Attestation signed by Jocelyn Tian PT at 08/04/2024 1:18 PM I certify that I was present during the entire session and guided the care given by the Student Physical Therapist. Cosign: Jocelyn Tian PT PHYSICAL THERAPY [facility] Initial Evaluation Name/MRN: Krish Peralta ([id number]) Evaluation Date: 08/04/2024 Date of : 1940 Admission Date: 08/03/2024 4:21 PM Age: 83 y.o. Room/Bed: [facility] B Discharge Recommendation: Residential Facility Equipment Needed: No Assessment IMPRESSION: Pt [...] climbing assess (more content not included)... Normal [facility] RESPIRATORY CULTURE AND STAI Non 08-04-2024 RESPIRATORY [...] NO = No Interpretation ] Normal [facility] Comment on above: Performed By: #### L [id number], [id number], [id number] #### Hot Tar Roofer Helper: JOHAN BHANDARI ([phone]) [facility] [address] [place] [address] RESPIRATORY PATHOGENS PANEL BY PCRon 08-04-2024 RESPIRATORY [...] ORDER COMMENTS: Methodology: Multiplex PCR Normal [facility] Comment on above: Performed By: #### L [id number], [id number], [id number] #### Hot Tar Roofer Helper: JOHAN BHANDARI ([id number]) [facility] ([facility]) [address] Respiratory pathogens DNA an d RNA panel LYDIA+non-probe (Lower resp)Ordered By: Kalli Mari on 08-04-2024 Acinetobacter baumannii complex Not detected Not Detected [facility] Adenovirus Not detected Not Detected [facility] Chlamydia pneumoniae Not detected Not Detected [facility] Enterobacter cloacae complex Not detected Not Detected [facility] Escherichia coli Not detected Not Detected [facility] FLUAV RNA LYDIA+non-probe Ql (Lower resp) Not detected Not Detected [facility] FLUBV RNA LYDIA+non-probe Ql (Lower resp) Not detected Not Detected [facility] Haemophilus influenzae Detected Abnormal Not Detected [facility] Human Metapneumovirus Not detected Not Detected [facility] Human Rhinovirus/Enterovirus Detected Abnormal Not Detected [facility] Interpretation and review of laboratory results Abnormal [facility] Klebsiella (Enterobacter) aerogenes Not detected Not Detected [facility] Klebsiella oxytoca Not detected Not Detected [facility] Klebsiella pneumoniae Not detected Not Detected [facility] Legionella pneumophila Not detected Not Detected [facility] Moraxella catarrhalis Not detected Not Detected [facility] Mycoplasma pneumoniae Not detected Not Detected [facility] Parainfluenza virus Not detected Not Detected [facility] Proteus spp Not detected Not Detected [facility] Pseudomonas aeruginosa Not detected Not Detected [facility] RSV RNA LYDIA+probe Ql (Resp) Not detected Not Detected [facility] S. agalactiae Org specific cx Ql (Vag fld) Not detected Not Detected [facility] SARS-CoV-2 (COVID-19) RNA LYDIA+non-probe Ql (Nph) Not detected Not Detected [facility] SARS-CoV-2 (COVID-19) RNA LYDIA+probe Ql (Unsp spec) Methodology: Multiplex PCR This panel does not test for SARS-CoV-2 (Covid-19). The following antimicrobial resistance gene is reported if the appropriate organism is detected: mecA. The following antimicrobial resistance genes are reported if detected and the appropriate organisms are detected: CTX-M, IMP, KPC, NDM, OXA-48-like, and VIM. [facility] Serratia marcescens Not detected Not Detected [facility] Staphylococcus aureus Not detected Not Detected [facility] Streptococcus pneumoniae Not detected Not Detected [facility] Streptococcus pyogenes Not detected Not Detected [facility] Respiratory pathogens DNA an d RNA panel LYDIA+non-probe (Nph)on 08-04-2024 Adenovirus Not detected Not Detected [facility] B. pertussis DNA LYDIA+probe Ql (Unsp spec) Not detected Not Detected [facility] Bordetella parapertussis Not detected Not Detected [facility] Chlamydia pneumoniae Not detected Not Detected [facility] Coronavirus 229E Not detected Not Detected [facility] Coronavirus HKU1 Not detected Not Detected [facility] Coronavirus NL63 Not detected Not Detected [facility] Coronavirus OC43 Not detected Not Detected [facility] FLUAV RNA LYDIA+non-probe Ql (Nph) Not detected Not Detected [facility] FLUBV RNA LYDAI+non-probe Ql (Nph) Not detected Not Detected [facility] Human Metapneumovirus Not detected Not Detected [facility] Human Rhinovirus/Enterovirus Not detected Not Detected [facility] Interpretation and review of laboratory results Normal [facility] Mycoplasma pneumoniae Not detected Not Detected [facility] Parainfluenza 1 Not detected Not Detected [facility] Parainfluenza 2 Not detected Not Detected [facility] Parainfluenza 3 Not detected Not Detected [facility] Parainfluenza 4 Not detected Not Detected [facility] Respiratory Syncytial Virus Not detected Not Detected [facility] SARS-CoV-2 (COVID-19) RNA LYDIA+non-probe Ql (Nph) Not detected Not Detected [facility] Methodology: Multiplex PCR [facility] Vital signsOrdered By: Sharda Chacon on 08-04-2024 Oxygen saturation in Venous blood 87.9 % [facility] CBC W Auto Differential pane l (Bld)Ordered By: Ivana Nava on 08-03-2024 Erythrocyte distribution width (RBC) [Ratio] 14.1 % 11.5 - 15.0 % [facility] Hematocrit (Bld) [Volume fraction] 41.5 % 35.0 - 47.0 % [facility] Hemoglobin (Bld) [Mass/Vol] 13.2 g/dL 11.7 - 16.0 g/dL [facility] Interpretation and review of laboratory results Abnormal [facility] MCH (RBC) [Entitic mass] 28.9 pg 26. 0 - 34.0 pg [facility] MCHC (RBC) [Mass/Vol] 31.8 % 30.5 - 36.0 % [facility] MCV (RBC) [Entitic vol] 90.8 fL 77.0 - 99.0 fL [facility] Platelet mean volume (Bld) [Entitic vol] 9.7 fL 9.0 - 12.7 fL [facility] Platelets (Bld) [#/Vol] 141 10*3/uL 140 - 440 10*3/uL [facility] RBC (Bld) [#/Vol] 4.57 10*6/uL 3.80 - 5.2 0 10*6/uL [facility] WBC (Bld) [#/Vol] 11.7 10*3/uL High 3.6 - 10.7 10*3/uL [facility] CBC WITH AUTO DIFFERENTIALon 08-03-2024 Erythrocyte distribution width (RBC) [Ratio] 14.1 % Normal 11.5-15.0 [facility] Comment on above: Performed By: #### L [id number], [id number] ####Hot Tar Roofer Helper: JOHAN BHANDARI ([phone])[facility] ([facility])[address] [place] [address] Hematocrit (Bld) [Volume fraction] 41.5 % Normal 35.0-47.0 [facility] Comment on above: Performed By: #### L [id number], [id number] ####Hot Tar Roofer Helper: JOHAN BHANDARI ([phone])[facility] ([facility])[address] [place] [address] Hemoglobin (Bld) [Mass/Vol] 13.2 g/dL Normal 11.7-16.0 [facility] Comment on above: Performed By: #### L [id number], [id number] ####Hot Tar Roofer Helper: JOHAN BHANDARI ([id number])[facility] ([facility])[address] [place] [address] MCH (RBC) [Entitic mass] 28.9 pg Normal 26.0-34.0 [facility] Comment on above: Performed By: #### L [id number], [id number] ####Hot Tar Roofer Helper: JOHAN BHANDARI ([id number])[facility] [place] ([facility])[address] MCHC 31.8 % Normal 30.5-36.0 [facility] Comment on above: Performed By: #### L [id number], [id number] ####Hot Tar Roofer Helper: JOHAN BHANDARI ([id number])[facility] ([facility])[address] MCV (RBC) [Entitic vol] 90.8 fL Normal 77.0-99.0 [facility] Comment on above: Performed By: #### L [id number], [id number] ####Hot Tar Roofer Helper: JOHAN BHANDARI ([phone])[facility] [place] ([facility])[address] [place] [address] Platelet mean volume (Bld) [Entitic vol] 9.7 fL Normal 9.0-12.7 [facility] Comment on above: Performed By: #### L [id number], [id number] ####Hot Tar Roofer Helper: JOHAN BHANDARI ([phone])[facility] ([facility])[address] Platelets (Bld) [#/Vol] 141 10*3/uL Normal 140-440 [facility] Comment on above: Performed By: #### L [id number], [id number] ####Hot Tar Roofer Helper: JOHAN BHANDARI ([phone])[facility] [place] ([facility])[address] RBC (Bld) [#/Vol] 4.57 10*6/uL Normal 3.80-5.20 [facility] Comment on above: Performed By: #### L [id number], [id number] ####Hot Tar Roofer Helper: JOHAN BHANDARI ([phone])[facility] ([facility])[address] [place] [address] [place] WBC (Bld) [#/Vol] 11.7 10*3/uL High 3.6-10.7 [facility] Comment on above: Performed By: #### L [id number], [id number] ####Hot Tar Roofer Helper: JOHAN BHANDARI ([phone])[facility] ([facility])[address] COMPREHENSIVE METABOLIC PANE Alex 08-03-2024 Albumin [Mass/Vol] 3.0 g/dL Low 3.4-4.8 [facility] Comment on above: Performed By: #### L [id number] #### Hot Tar Roofer Helper: JOHAN BHANDARI ([phone]) [facility] ([facility]) [address] ALP [Catalytic activity/Vol] 85 U/L Normal 40-150 [facility] Comment on above: Performed By: #### L [id number] #### Hot Tar Roofer Helper: JOHAN BHANDARI ([phone]) [facility] ([facility]) [address] ALT [Catalytic activity/Vol] U/L Normal <30 [facility] Comment on above: Performed By: #### L [id number] #### Hot Tar Roofer Helper: JOHAN BHANDARI ([phone]) [facility] ([facility]) [address] Anion gap [Moles/Vol] 11 mmol/L Normal 3-13 [facility] Comment on above: Performed By: #### L [id number] #### Hot Tar Roofer Helper: JOHAN BHANDARI ([phone]) [facility] ([facility]) [address] AST [Catalytic activity/Vol] 17 U/L Normal <34 [facility] Comment on above: Performed By: #### L [id number] #### Hot Tar Roofer Helper: JOHAN BHANDARI ([id number]) [facility] ([facility]) [address] Bilirubin [Mass/Vol] 0.8 mg/dL Normal <1.[address] [facility] Comment on above: Performed By: #### L AB79 #### Hot Tar Roofer Helper: JOHAN BHANDARI ([id number]) [facility] [place] ([facility]) [address] Calcium [Mass/Vol] 9.7 mg/dL Normal 8.8-10.0 [facility] Comment on above: Performed By: #### L AB79 #### Hot Tar Roofer Helper: JOHAN BHANDARI ([phone]) [facility] ([facility]) [address] Chloride [Moles/Vol] 96 mmol/L Low 98-[address] [facility] Comment on above: Performed By: #### L AB79 #### Hot Tar Roofer Helper: JOHAN BHANDARI ([phone]) [facility] [place] ([facility]) [address] CO2 [Moles/Vol] 29 mmol/L Normal 23-31 [facility] Comment on above: Performed By: #### L [id number] #### Hot Tar Roofer Helper: JOHAN BHANDARI ([id number]) [facility] ([facility]) [address] Creatinine [Mass/Vol] 0.79 mg/dL Normal 0.57-1.11 [facility] Comment on above: Performed By: #### L AB79 #### Hot Tar Roofer Helper: JOHAN BHANDARI ([phone]) [facility] ([facility]) [address] GLOMERULAR FILTRATION RATE ML/MIN/1.73 SQ M.PREDICTED 73.4 mL/min/1.73m*2 Normal >60.0 [facility] Comment on above: Result Comment: Calc ulation based on the Chronic Kidney Disease Epidemiology Collaboration (CKD-EPI) equation refit without adjustment for race Performed By: #### L [id number] #### Hot Tar Roofer Helper: JOHAN BHANDARI ([id number]) [facility] ([facility]) [address] Glucose [Mass/Vol] 90 mg/dL Normal 82-115 [facility] Comment on above: Performed By: #### L [id number] #### Hot Tar Roofer Helper: JOHAN BHANDARI ([phone]) [facility] ([facility]) [address] Potassium [Moles/Vol] 4.0 mmol/L Normal 3.5-5.1 [facility] Comment on above: Result Comment: [facility] potassium values may be up to 0.5 mmol/L lower than serum values. Performed By: #### L [id number] #### Hot Tar Roofer Helper: JOHAN BHANDARI ([phone]) [facility] ([facility]) [address] Protein [Mass/Vol] 7.7 g/dL Normal 6.4-8.3 [facility] Comment on above: Performed By: #### L [id number] #### Hot Tar Roofer Helper: JOHAN BHANDARI ([phone]) [facility] ([facility]) [address] Sodium [Moles/Vol] 136 mmol/L Normal 136-145 [facility] Comment on above: Performed By: #### L [id number] #### Hot Tar Roofer Helper: JOHAN BHANDARI ([phone]) [facility] ([facility]) [address] Urea nitrogen [Mass/Vol] 13 mg/dL Normal 9-23 [facility] Comment on above: Performed By: #### L [id number] #### Hot Tar Roofer Helper: JOHAN BHANDARI ([phone]) [facility] ([facility]) [address] Comprehensive metabolic 1998 panelon 08-03-2024 Albumin [Mass/Vol] 3 g/dL Low 3.4 - 4.8 g/dL [facility] ALP [Catalytic activity/Vol] 85 U/L 40 - 150 U/L [facility] ALT [Catalytic activity/Vol] U/L NINF - 30 U/L [facility] Anion gap [Moles/Vol] 11 mmol/L 3 - 13 mmol/L [facility] AST [Catalytic activity/Vol] 17 U/L NINF - 34 U/L [facility] Bilirubin [Mass/Vol] 0.8 mg/dL NINF - 1.2 mg/dL [facility] Calcium [Mass/Vol] 9.7 mg/dL 8.8 - 10. 0 mg/dL [facility] Chloride [Moles/Vol] 96 mmol/L Low 98 - 10 7 mmol/L [facility] CO2 [Moles/Vol] 29 mmol/L 23 - 31 mmol/L [facility] Creatinine [Mass/Vol] 0.79 mg/dL 0.57 - 1.11 mg/dL [facility] GFR/1.73 sq M.predicted (S/P/Bld) [Vol rate/Area] 73.4 mL/min - PINF [facility] Comment on above: Calculation based on the Chronic Kidney Disease Epidemiology Collaboration (CKD-EPI) equation refit without adjustment for race Glucose [Mass/Vol] 90 mg/dL 82 - 115 mg/dL [facility] Interpretation and review of laboratory results Abnormal [facility] Potassium [Moles/Vol] 4 mmol/L 3.5 - 5.1 mmol/L [facility] Comment on above: Plasma potassium gustavo ues may be up to 0.5 mmol/L lower than serum values. Protein [Mass/Vol] 7.7 g/dL 6.4 - 8.3 g/dL [facility] Sodium [Moles/Vol] 136 mmol/L 136 - 145 mmol/L [facility] Urea nitrogen [Mass/Vol] 13 mg/dL 9 - 23 mg/dL [facility] ECG 12-LEADon 08-03-2024 ECG 12-LEAD IMPRESSION: Sinus rhythm Nonspecific IVCD with LAD LVH with secondary repolarization abnormality Anterior Q waves, possibly due to LVH Electronically Signed On 08-03-2024 17:43:39 EDT by Khari Souza Normal [facility] ED Nursing Noteon 08-03-2024 ED Nursing Note Patient was placed o n a Venti mask at 50% FiO2. Normal [facility] ED Nursing Note Patient arrives from SNF via EMS due to SOB and low pulse oximetry readings. Ems reports the capnography was in the 50's for CO2 level. The SNF was trying all day to get the patient to agree to come to the ED for evaluation and she refused. Patient finally agrees but refused the EMS BiPap. Normal [facility] ED Provider Noteon ED Provider Note EMERGENCY [...] arm (more content not included)... Normal [facility] HIGH SENSITIVITY TROPONIN, S ERIAL BASELINEon 08-03-2024 TROPONIN HS SERIAL BASELINE 3 ng/L Normal <=14 [facility] Comment on above: Result Comment: In i ndividuals presenting with symptoms > 2h, a baseline troponin <= 5 ng/L suggests acute cardiac injury is unlikely and further serial testing is generally not indicated. Performed By: #### L [id number], [id number], [id number] #### Hot Tar Roofer Helper: JOHAN BHANDARI ([phone]) [facility] ([facility]) [address] [place] [address] HIGH SENSITIVITY TROPONIN, S ERIAL, SECOND TESTon 08-03-2024 2H TROPONIN HS (SERIAL 2ND TROPONIN) 4 ng/L Normal <=14 [facility] Comment on above: Result Comment: Risi ng or falling troponin delta below 2 ng/L as compared to baseline value suggests that acute cardiac injury is unlikely. Performed By: #### L [id number] ####Hot Tar Roofer Helper: JOHAN BHANDARI ([phone])[facility] ([facility] [place] [address] Laboratory - Hematology and Cell countson 08-03-2024 Band form neutrophils (Bld) [#/Vol] 0.2 10*3/uL High NINF - 0.0 10*3/uL [facility] Band form neutrophils/100 WBC (Bld) 2 % High NINF - 0 % [facility] Giant platelets LM Ql (Bld) Rare Abnormal (none) [facility] Lymphocytes (Bld) [#/Vol] 1.1 10*3/uL 1.0 - 4.3 10*3/uL [facility] Lymphocytes/100 WBC (Bld) 9 % Low 15 - 45 % [facility] Monocytes (Bld) [#/Vol] 0.7 10*3/uL 0.0 - 0.9 10*3/uL [facility] Monocytes/100 WBC (Bld) 6 % 5 - 13 % [facility] Myelocytes (Bld) [#/Vol] 0.1 10*3/uL High KRYSTIN F - 0.0 10*3/uL [facility] Myelocytes/100 WBC (Bld) 1 % High NINF - 0 % [facility] Neutrophils (Bld) [#/Vol] 9.8 10*3/uL High 1.8 - 7.5 10*3/uL [facility] Ovalocytes LM Ql (Bld) Rare Abnormal (none) [facility] RBC morphology finding Nom (Bld) abnormal [facility] Segmented neutrophils/100 WBC (Bld) 82 % 38 - 82 % [facility] Stomatocytes LM Ql (Bld) Slight Abnormal (none) [facility] MANUAL DIFFERENTIAL (CELLAVI ASHLIE)on 08-03-2024 BAND NEUTROPHILS TOTAL PER COUNTED LEUKOCYTES BY MANUAL COUNT 2 Normal [facility] Comment on above: Performed By: #### L [id number], [id number] ####Hot Tar Roofer Helper: JOHAN BHANDARI ([phone])[facility] ([facility] BANDS (10*3/UL) IN BLOOD-CELLAVISION 0.2 10*3/uL High <=0.0 [facility] Comment on above: Performed By: #### L [id number], [id number] ####Hot Tar Roofer Helper: JOHAN BHANDARI ([phone])[facility] [place] ([facility])[address] [place] [address] [place] BASOPHILS TOTAL PER COUNTED LEUKOCYTES BY MANUAL COUNT Normal [facility] Comment on above: Performed By: #### L [id number], [id number] ####Hot Tar Roofer Helper: JOHAN BHANDARI ([phone])[facility] ([facility] [place] [address] [place] BLASTS TOTAL PER COUNTED LEUKOCYTES BY MANUAL COUNT Normal [facility] Comment on above: Performed By: #### L [id number], [id number] ####Hot Tar Roofer Helper: JOHAN BHANDARI ([phone])[facility] [place] ([facility])[address] [place] [address] [place] EOSINOPHILS TOTAL PER COUNTED LEUKOCYTES BY MANUAL COUNT Normal [facility] Comment on above: Performed By: #### L [id number], [id number] ####Hot Tar Roofer Helper: JOHAN BHANDARI ([phone])[facility] [place] ([facility])[address] [place] [address] [place] LYMPHOCYTES (10*3/UL) IN BLOOD-CELLAVISION 1.1 10*3/uL Normal 1.0-4.3 [facility] Comment on above: Performed By: #### L [id number], [id number] ####Hot Tar Roofer Helper: JOHAN BHANDARI ([phone])[facility] [place] ([facility])[address] [place] [address] [place] LYMPHOCYTES TOTAL PER COUNTED LEUKOCYTES BY MANUAL COUNT 9 Normal [facility] Comment on above: Performed By: #### L [id number], [id number] ####Hot Tar Roofer Helper: JOHAN BHANDARI ([phone])[facility] [place] ([facility])[address] [place] [address] [place] LYMPHOCYTES/100 LEUKOCYTES IN BLOOD-CELLAVISION 9 % Low 15-45 [facility] Comment on above: Performed By: #### L [id number], [id number] ####Hot Tar Roofer Helper: JOHAN BHANDARI ([phone])[facility] [place] ([facility])[address] [place] [address] [place] METAMYELOCYTES TOTAL PER COUNTED LEUKOCYTES BY MANUAL COUNT Normal [facility] Comment on above: Performed By: #### L [id number], [id number] ####Hot Tar Roofer Helper: JOHAN BHANDARI ([phone])[facility] [place] ([facility])[address] [place] [address] [place] MONOCYTES (10*3/UL) IN BLOOD-CELLAVISION 0.7 10*3/uL Normal 0.0-0.9 [facility] Comment on above: Performed By: #### L [id number], [id number] ####Hot Tar Roofer Helper: JOHAN BHANDARI ([phone])[facility] [place] ([facility])[address] [place] [address] [place] MONOCYTES TOTAL PER COUNTED LEUKOCYTES BY MANUAL COUNT 6 Normal [facility] Comment on above: Performed By: #### L [id number], [id number] ####Hot Tar Roofer Helper: JOHAN BHANDARI ([phone])[facility] [place] ([facility])[address] [place] [address] [place] MONOCYTES/100 LEUKOCYTES IN BLOOD-LOLY 6 % Normal 5-13 [facility] Comment on above: Performed By: #### L [id number], [id number] ####Hot Tar Roofer Helper: JOHAN BHANDARI ([phone])[facility] [place] ([facility])[address] [place] [address] [place] MYELOCYTES (10*3/UL) IN BLOOD-CELLAVISION 0.1 10*3/uL High <=0.0 [facility] Comment on above: Performed By: #### L [id number], [id number] ####Hot Tar Roofer Helper: JOHAN BHANDARI ([phone])[facility] ([facility])[address] [place] [address] [place] MYELOCYTES COUNTED BY MANUAL COUNT 1 Normal [facility] Comment on above: Performed By: #### L [id number], [id number] ####Hot Tar Roofer Helper: JOHAN BHANDARI ([phone])[facility] [place] ([facility])[address] [place] [address] [place] MYELOCYTES/100 LEUKOCYTES IN BLOOD-CELLAVISION 1 % High <=0 [facility] Comment on above: Performed By: #### L [id number], [id number] ####Hot Tar Roofer Helper: JOHAN BHANDARI ([phone])[facility] [place] ([facility])[address] [place] [address] [place] NEUTROPHILS BAND FORM/100 LEUKOCYTES IN BLOOD-CELLAVISI 2 % High <=0 [facility] Comment on above: Performed By: #### L [id number], [id number] ####Hot Tar Roofer Helper: JOHAN BHANDARI ([phone])[facility] [place] [address] [place] NEUTROPHILS TOTAL PER COUNTED LEUKOCYTES BY MANUAL COUNT 83 Normal [facility] Comment on above: Performed By: #### L [id number], [id number] ####Hot Tar Roofer Helper: JOHAN BHANDARI ([phone])[facility] ([facility] [place] [address] [place] OVALOCYTES PRESENCE IN BLOOD BY LIGHT MICROSCOPY Rare Abnormal (none) [facility] Comment on above: Performed By: #### L [id number], [id number] ####Hot Tar Roofer Helper: JOHAN BHANDARI ([phone])[facility] ([facility])[address] [place] [address] [place] PLATELETS GIANT PRESENCE IN BLOOD BY LIGHT MICROSCOPY Rare Abnormal (none) [facility] Comment on above: Performed By: #### L [id number], [id number] ####Hot Tar Roofer Helper: JOHAN BHANDARI ([phone])[facility] ([facility])[address] [place] [address] [place] PROMYELOCYTES TOTAL PER COUNTED LEUKOCYTES BY MANUAL COUNT Normal [facility] Comment on above: Performed By: #### L [id number], [id number] ####Hot Tar Roofer Helper: JOHAN BHANDARI ([phone])[facility] ([facility] [place] [address] [place] RBC MORPHOLOGY IN BLOOD abnormal Normal [facility] Comment on above: Performed By: #### L [id number], [id number] ####Hot Tar Roofer Helper: JOHAN BHANDARI ([phone])[facility] ([facility])[address] [place] [address] [place] SEGMENTED NEUTROPHILS (10*3/UL) IN BLOOD-CELLAVISION 9.8 10*3/uL High 1.8-7.5 [facility] Comment on above: Performed By: #### L [id number], [id number] ####Hot Tar Roofer Helper: JOHAN BHANDARI ([phone])[facility] ([facility])[address] SEGMENTED NEUTROPHILS/100 LEUKOCYTES-CE 82 % Normal 38-82 [facility] Comment on above: Performed By: #### L [id number], [id number] ####Hot Tar Roofer Helper: JOHAN BHANDARI ([phone])[facility] ([facility])[address] STOMATOCYTES IN BLOOD BY LIGHT MICROSCOPY Slight Abnormal (none) [facility] Comment on above: Performed By: #### L [id number], [id number] ####Hot Tar Roofer Helper: JOHAN BHANDARI ([phone])[facility] ([facility])[address] UNCLASSIFIED CELLS TOTAL PER COUNTED LEUKOCYTES BY MANUAL COUNT Normal [facility] Comment on above: Performed By: #### L [id number], [id number] ####Hot Tar Roofer Helper: JOHAN BHANDARI ([phone])[facility] ([facility])[address] VARIANT LYMPHOCYTES TOTAL PER COUNTED LEUKOCYTES BY MANUAL COUNT Normal [facility] Comment on above: Performed By: #### L [id number], [id number] ####Hot Tar Roofer Helper: JOHAN BHANDARI ([phone])[facility] [place] [address] [place] NT PRO BNPon 08-03-2024 Natriuretic peptide B (Bld) [Mass/Vol] 890 pg/mL High <450 [facility] Comment on above: Performed By: #### L [id number], [id number], [id number] #### Hot Tar Roofer Helper: JOHAN BHANDARI ([phone]) [facility] ([facility]) [address] [place] [address] [place] Natriuretic peptide B [Mass/ Vol]on 08-03-2024 Interpretation and review of laboratory results Abnormal [facility] Natriuretic peptide B (Bld) [Mass/Vol] 890 pg/mL High NINF - 450 pg/mL [facility] No Panel Informationon 08-03 2h Troponin HS (Serial 2nd Troponin) 4 ng/L NINF - 14 ng/L [facility] Comment on above: Rising or falling tr oponin delta below 2 ng/L as compared to baseline value suggests that acute cardiac injury is unlikely. Interpretation and review of laboratory results Normal [facility] Atypical Lymphocytes Manual [facility] Bands Manual 2 [facility] Basophils Manual [facility] Blasts Manual [facility] Eosinophils Manual [facility] Interpretation and review of laboratory results Abnormal [facility] Lymphocytes Manual [address] [facility] Metamyelocytes Manual [facility] Monocytes Manual 6 [facility] Myelocytes Manual 1 [facility] ealth Neutrophils Manual 83 [facility] Promyelocytes Manual [facility] Unclassified Cells, Manual [facility] Interpretation and review of laboratory results Normal [facility] Troponin HS Serial Baseline 3 ng/L NINF - 14 ng/L [facility] Comment on above: In individuals prese nting with symptoms > 2h, a baseline troponin <= 5 ng/L suggests acute cardiac injury is unlikely and further serial testing is generally not indicated. 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 [employer] Work Phone: ID Interval [address] [facility] [employer] Work Phone: QRS [place] -[address] [facility] [employer] Work Phone: QRSD Interval [address] [facility] [employer] [facility] Work Phone: QT Interval [address] [facility] [employer] Work Phone: QTC Interval 482 ms [facility] Work Phone: T Wave [place] 82 degrees [facility] Work Phone: [facility] Phone: Vital signsOrdered By: Osvaldo Souza on 08-03-2024 Heart rate 88 /min bpm [employer] Phone: XR Chest Single viewon 08-03 Patient [...] Electronically Signed Date/Time: 08/03/2024 5:43 PM EDT [facility] Sterling Tian MD - [...] Electronically Signed Date/Time: 08/03/2024 5:43 PM EDT [facility] Radiology Study observation (narrative) [facility] XR Chest Single viewOrdered By: Sterling Tian on 08-03-2024 [facility] Work Phone: Respiratory Cultureon 2024 RESPC Streptococcus pneumoniae Amount Growth 2+ Streptococcus pneumoniae: REACTION Cefotaxime Islt GERMAN <=0.12 S Cefotaxime Islt GERMAN <=0.12 S cefTRIAXone Islt GERMAN <=0.12 S cefTRIAXone Islt GERMAN <=0.12 S Clindamycin Islt GREMAN <=0.25 S Erythromycin Islt GERMAN 2 R [...] #### [facility] [address] [place], [place], [id number] Urine Cultureon 04-19-2024 URC Escherichia coli [place] Count >100,000 Escherichia coli: REACTION Ampicillin Islt [...] #### [facility] [address] [place], [place], [id number] Basic Metabolic Profile (BMP )on 04-18-2024 BUN/CRE 33.2 RATIO High 10-20 [facility] Comment on above: Performed By: #### L 100.0500, L500.2500 #### [facility] [address] [place], [address] CA,Total 9.9 mg/dL Normal 8.5-10.1 [facility] Comment on above: Performed By: #### L 100.0500, L500.2500 #### [facility] [address] [place], [address] Chloride [Moles/Vol] 98 mmol/L Normal 98-107 [facility] Comment on above: Performed By: #### L 100.0500, L500.2500 #### [facility] [address] [place], [address] CO2 [Moles/Vol] 29.0 mmol/L Normal 21.0-32.0 [facility] Comment on above: Performed By: #### L 100.0500, L500.2500 #### [facility] [address] [place], [address] Creatinine [Mass/Vol] 0.72 mg/dL Normal 0.55-1.02 [facility] Comment on above: Result Comment: The validity of the calculated GFR GFRAA in patients over 70 years has not been determined. Clinical correlation is essential. Performed By: #### L 100.0500, L500.2500 #### [facility] [address] [place], [address] ECRCL 52.82 ml/min Normal [facility] Comment on above: Performed By: #### L 100.0500, L500.2500 #### [facility] [address] [place], [address] EST GFR - AA 99 mL/min Normal >60 [facility] Comment on above: Result Comment: Afri can [place] GFR Calc Performed By: #### L 100.0500, L500.2500 #### [facility] [address] [place], [address] GAP 10 Normal 5-15 [facility] Comment on above: Performed By: #### L 100.0500, L500.2500 #### [facility] [address] [place], [address] GFR/1.73 sq M.predicted among non-blacks MDRD (S/P/Bld) [Vol rate/Area] 82 mL/min/{1.73_m2} Normal >60 [facility] Comment on above: Result Comment: Non- GFR Calc Performed By: #### L 100.0500, L500.2500 #### [facility] [address] [place], [address] Glucose [Mass/Vol] 107 mg/dL High 74-106 [facility] Comment on above: Result Comment: Fast ing Glucose result from 100 to 125 mg/dL suggests IMPAIRED HOMEOSTASIS per A.D.A. criteria. Performed By: #### L 100.0500, L500.2500 #### [facility] [address] [place], [address] Potassium [Moles/Vol] 4.4 mmol/L Normal 3.5-5.1 [facility] Comment on above: Performed By: #### L 100.0500, L500.2500 #### [facility] [address] [place], [address] Sodium [Moles/Vol] 137 mmol/L Normal 136-145 [facility] Comment on above: Performed By: #### L 100.0500, L500.2500 #### [facility] [address] [place], [address] Urea nitrogen [Mass/Vol] 24 mg/dL High 7-18 [facility] Comment on above: Performed By: #### L 100.0500, L500.2500 #### [facility] [address] [place], [address] CBC-Complete Blood Cnt No Di ffon 04-18-2024 PLT TNP Normal 150-450 [facility] [address] [place], [address] Erythrocyte distribution width (RBC) [Ratio] 14.3 % Normal 11.6-14.6 [facility] Comment on above: Performed By: #### L 100.0500, L500.2500 #### [facility] [address] [place], [address] Hematocrit (Bld) [Volume fraction] 41.9 % Normal 37-47 [facility] Comment on above: Performed By: #### L 100.0500, L500.2500 #### [facility] [address] [place], [address] Hemoglobin (Bld) [Mass/Vol] 13.5 g/dL Normal 12.0-15.0 [facility] Comment on above: Performed By: #### L 100.0500, L500.2500 #### [facility] [address] [place], [address] MCH (RBC) [Entitic mass] 28.2 pg Normal 27.0-32.0 [facility] Comment on above: Performed By: #### L 100.0500, L500.2500 #### [facility] [address] [place], [address] MCHC (RBC) [Mass/Vol] 32.2 g/dL Normal 32-36 [facility] Comment on above: Performed By: #### L 100.0500, L500.2500 #### [facility] [address] [place], [address] MCV (RBC) [Entitic vol] 87.7 fL Normal 81-[address] [facility] Comment on above: Performed By: #### L 100.0500, L500.2500 #### [facility] [address] [place], [address] Platelet mean volume (Bld) [Entitic vol] 10.0 fL Normal 6.2-12.0 [facility] Comment on above: Performed By: #### L 100.0500, L500.2500 #### [facility] [address] [place], [address] RBC (Bld) [#/Vol] 4.78 10*6/uL Normal 4.2-5.4 [facility] Comment on above: Performed By: #### L 100.0500, L500.2500 #### [facility] [address] [place], [address] RDW SD 46.3 fl High 35.1-43.9 [facility] Comment on above: Performed By: #### L 100.0500, L500.2500 #### [facility] [address] [place], [address] WBC (Bld) [#/Vol] 8.7 10*3/uL Normal 4.4-11.0 [facility] Comment on above: Performed By: #### L 100.0500, L500.2500 #### [facility] [address] [place], [address] Gram Stainon 04-18-2024 GS Acceptable Specimen? Yes (<25 Epithelial cells per/lpf) Gram Stain 4+ White Blood Cells 3+ Gram positive diplococci No Epithelial cells Normal [facility] Comment on above: Performed By: #### L 100.0500, L500.2500 #### [facility] [address] [place], [address] BNP,B-Type NATRIURETIC PEPTI Savi 04-17-2024 Natriuretic peptide B (Bld) [Mass/Vol] 84.1 pg/mL Normal 0-100 [facility] Comment on above: Performed By: #### L 400.0001, #### [facility] [address] [place], [address] Basic Metabolic Profile (BMP )on 04-17-2024 BUN/CRE 20.6 RATIO High 10-20 [facility] Comment on above: Performed By: #### L 400.0001, #### [facility] [address] [place], [address] CA,Total 9.8 mg/dL Normal 8.5-10.1 [facility] Comment on above: Performed By: #### L 400.0001, #### [facility] [address] [place], [address] Chloride [Moles/Vol] 95 mmol/L Low 98-107 [facility] Comment on above: Performed By: #### L 400.0001, #### [facility] [address] [place], [address] CO2 [Moles/Vol] 36.0 mmol/L High 21.0-32.0 [facility] Comment on above: Performed By: #### L 400.0001, #### [facility] [facility] [address] [place], [address] Creatinine [Mass/Vol] 0.83 mg/dL Normal 0.55-1.02 [facility] Comment on above: Result Comment: The validity of the calculated GFR GFRAA in patients over 70 years has not been determined. Clinical correlation is essential. Performed By: #### L 400.0001, #### [facility] [address] [place], [address] ECRCL 52.04 ml/min Normal [facility] Comment on above: Performed By: #### L 400.0001, #### [facility] [address] [place], [address] EST GFR - AA 84 mL/min Normal >60 [facility] Comment on above: Result Comment: Afri can [place] GFR Calc Performed By: #### L 400.0001, #### [facility] [address] [place], [address] GAP 5 Normal 5-15 [facility] Comment on above: Performed By: #### L 400.0001, #### [facility] [address] [place], [address] GFR/1.73 sq M.predicted among non-blacks MDRD (S/P/Bld) [Vol rate/Area] 70 mL/min/{1.73_m2} Normal >60 [facility] Comment on above: Result Comment: Non- GFR Calc Performed By: #### L 400.0001, #### [facility] [address] [place], [address] Glucose [Mass/Vol] 85 mg/dL Normal 74-106 [facility] Comment on above: Performed By: #### L 400.0001, #### [facility] [address] [place], [address] Potassium [Moles/Vol] 4.1 mmol/L Normal 3.5-5.1 [facility] Comment on above: Result Comment: Slig ht Hemolysis, Result may be falsely increased. Performed By: #### L 400.0001, #### [facility] [address] [place], [address] Sodium [Moles/Vol] 136 mmol/L Normal 136-145 [facility] Comment on above: Performed By: #### L 400.0001, M100.2200 #### [facility] [address] [place], [address] Urea nitrogen [Mass/Vol] 17 mg/dL Normal 7-18 [facility] Comment on above: Performed By: #### L 400.0001, M100.2200 #### [facility] [address] [place], [address] Blood Gases by CPSon 025 DONY TEST Positive Normal [facility] Comment on above: Performed By: #### L 9000.0800 #### [facility] [address] [place], [address] Base excess Calc (Bld) [Moles/Vol] 12 mmol/L High -2 to +2 [facility] Comment on above: Performed By: #### L 9000.0800 #### [facility] [address] [place], [address] Blood Gas Type ART Normal [facility] Comment on above: Performed By: #### L 9000.0800 #### [facility] [address] [place], [address] CO2 [Moles/Vol] 38 mmol/L Normal [facility] Comment on above: Performed By: #### L 9000.0800 #### [facility] [address] [place], [address] FI02 8.0 Normal [facility] Comment on above: Performed By: #### L 9000.0800 #### [facility] [address] [place], [address] HCO3 (Bld) [Moles/Vol] 36.1 mmol/L High 22-[address] [facility] Comment on above: Performed By: #### L 9000.0800 #### [facility] [address] [place], [address] Mode Not entered Normal [facility] Comment on above: Performed By: #### L 9000.0800 #### [facility] [address] [place], [address] O2 Delivery Dev Not entered Normal [facility] Comment on above: Performed By: #### L 9000.0800 #### [facility] [address] [place], [address] pCO2 53.5 mmHg High 35-45 [facility] Comment on above: Performed By: #### L 9000.0800 #### [facility] [address] [place], [address] pH (Bld) 7.44 [pH] Normal 7.35-7.45 [facility] Comment on above: Performed By: #### L 9000.0800 #### [facility] [address] [place], [address] PO2 78 mmHG Normal 75-100 [facility] Comment on above: Performed By: #### L 9000.0800 #### [facility] [address] [place], [address] SITE R Radial Normal [facility] Comment on above: Performed By: #### L 9000.0800 #### [facility] [address] [place], [address] SO2 96 Normal 95-99 [facility] Comment on above: Performed By: #### L 9000.0800 #### [facility] [address] [place], [address] CBC W/Diff, Automatedon 02-0 SMEAR COMMENT SCANNED Normal [facility] Comment on above: Result Comment: MONO CYTOSIS PRESENT Performed By: #### L 400.0001, M100.2200 #### [facility] [address] 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 Patient and senior living staff state it seemed to have worsened [...] 2 DuoNeb's and Solu-Medrol prior to arrival [facility] Medical History Hypothyroidism, unspecified Other intervertebral [...] Exam - Hospitalist [facility] Medical Records Department [address] [place] [address] H P Exam - Hospitalist 04/17/24 0728 MR#: [id number] Acct: [id number] Name: KRISH PERALTA Rep #: [id number] : 1940 83 From: Tacos Bender DO PCP: Dr. Kaleb Mace Sr., DO Status:ADM IN Location: [facility] [id number] HPI - General General Date of Admission: 04/17/24 Date of Service: 04/17/24 Chief Complaint: Worsening shortness of breath with cough HPI Narrative KRISH PERALTA, is a 83 F who presented to [facility] ED on 04/17/2024 from senior living for worsening shortness of breath with cough. Has known history of COPD but does not wear oxygen at baseline. Staff at senior living noted that patient had worsening cough and [...] chills. No other acute concerns this time. [facility] Medical History Hypothyroidism, unspecified Other intervertebral [...] [facility] [address] [place], [place], [address] Magnesiumon 04-17-2024 Magnesium [Mass/Vol] 1.7 mg/dL Normal 1.6-2.6 [facility] Comment on above: Result Comment: Slig ht Hemolysis, Result may be falsely increased. Performed By: #### L 400.0001, M100.2200 #### [facility] [address] [place], [address] Procalcitoninon 04-17-2024 Procalcitonin 0.16 ng/mL High 0.00-0.09 [...] #### [facility] [address] [place], [address] RESPIRATORY PANEL MOLECULARo n 04-17-2024 RP PANEL CRITICAL VALUE POTTS D TO SOILA PATTERSON RN PCU 04/17/24 1741 Khari Kothari. RESULTS READ BACK [...] #### [facility] [address] [facility] [place], [address] Urinalysis, Routine (Dipstic k)on 04-17-2024 BILIRUBIN URINE Negative Normal Negative [facility] Comment on above: Order Comment: BLADD ER TAP Performed By: #### L 100.0500, L500.2500 #### [facility] [address] [place], [address] Clarity (U) Cloudy Normal Clear [facility] Comment on above: Order Comment: BLADD ER TAP Performed By: #### L 100.0500, L500.2500 #### [facility] [address] [facility] [place], [address] Color (U) Yellow Normal Yellow [facility] Comment on above: Order Comment: BLADD ER TAP Performed By: #### L 100.0500, L500.2500 #### [facility] [address] [place], [address] GLUCOSE, UR Normal Normal Normal [facility] Comment on above: Order Comment: BLADD ER TAP Performed By: #### L 100.0500, L500.2500 #### [facility] [address] [place], [address] KETONE UR Negative Normal Negative [facility] Comment on above: Order Comment: BLADD ER TAP Performed By: #### L 100.0500, L500.2500 #### [facility] [address] [place], [address] LEUK ESTERASE 100 /ul Abnormal Negative [facility] Comment on above: Order Comment: BLADD ER TAP Performed By: #### L 100.0500, L500.2500 #### [facility] [address] [place], [address] Nitrite Ql (U) Positive Abnormal Negative [facility] Comment on above: Order Comment: BLADD ER TAP Performed By: #### L 100.0500, L500.2500 #### [facility] [address] [place], [address] OCCULT BLOOD-UR 10 /ul Abnormal Negative [facility] Comment on above: Order Comment: BLADD ER TAP Performed By: #### L 100.0500, L500.2500 #### [facility] [address] [place], [address] pH UR 8.0 Normal 5.0 - 8.0 [facility] Comment on above: Order Comment: BLADD ER TAP Performed By: #### L 100.0500, L500.2500 #### [facility] [address] [place], [address] PROT DIPSTX 30 mg/dl Abnormal Negative [facility] Comment on above: Order Comment: BLADD ER TAP Performed By: #### L 100.0500, L500.2500 #### [facility] [address] [place], [address] SP.GR. DIPSTX 1.010 Normal 1.002-1.030 [facility] Comment on above: Order Comment: BLADD ER TAP Performed By: #### L 100.0500, L500.2500 #### [facility] [address] [place], [address] UROBILI 1 mg/dl Abnormal Normal [facility] Comment on above: Order Comment: BLADD ER TAP Performed By: #### L 100.0500, L500.2500 #### [facility] [address] [place], [address] Basic Metabolic Profile (BMP )on 03-11-2024 BUN/CRE 18.8 RATIO Normal 10-20 [facility] Comment on above: Order Comment: 103.1 Performed By: #### L 500.2500 #### [facility] [address] [place], [address] CA,Total 9.9 mg/dL Normal 8.5-10.1 [facility] Comment on above: Order Comment: 103.1 Performed By: #### L 500.2500 #### [facility] [address] [place], [address] Chloride [Moles/Vol] 99 mmol/L Normal 98-107 [facility] Comment on above: Order Comment: 103.1 Performed By: #### L 500.2500 #### [facility] [address] [place], [address] CO2 [Moles/Vol] 32.0 mmol/L Normal 21.0-32.0 [facility] Comment on above: Order Comment: 103.1 Performed By: #### L 500.2500 #### [facility] [address] [place], [address] Creatinine [Mass/Vol] 0.85 mg/dL Normal 0.55-1.02 [facility] Comment on above: Order Comment: 103.1 Result Comment: The validity of the calculated GFR GFRAA in patients over 70 years has not been determined. Clinical correlation is essential. Performed By: #### L 500.2500 #### [facility] [address] [place], [address] EST GFR - AA 82 mL/min Normal >60 [facility] Comment on above: Order Comment: 103.1 Result Comment: Afri can [place] GFR Calc Performed By: #### L 500.2500 #### [facility] [address] [place], [address] GAP 5 Normal 5-15 [facility] Comment on above: Order Comment: 103.1 Performed By: #### L 500.2500 #### [facility] [address] [place], [address] GFR/1.73 sq M.predicted among non-blacks MDRD (S/P/Bld) [Vol rate/Area] 68 mL/min/{1.73_m2} Normal >60 [facility] Comment on above: Order Comment: 103.1 Result Comment: Non- GFR Calc Performed By: #### L 500.2500 #### [facility] [address] [place], [address] Glucose [Mass/Vol] 89 mg/dL Normal 74-106 [facility] Comment on above: Order Comment: 103.1 Performed By: #### L 500.2500 #### [facility] [address] [place], [address] Potassium [Moles/Vol] 3.8 mmol/L Normal 3.5-5.1 [facility] Comment on above: Order Comment: 103.1 Performed By: #### L 500.2500 #### [facility] [address] [place], [address] Sodium [Moles/Vol] 136 mmol/L Normal 136-145 [facility] Comment on above: Order Comment: 103.1 Performed By: #### L 500.2500 #### [facility] [address] [place], [address] Urea nitrogen [Mass/Vol] 16 mg/dL Normal 7-18 [facility] Comment on above: Order Comment: 103.1 Performed By: #### L 500.2500 #### [facility] [address] [place], [address] Thyroid Stim Hormone (TSH)on 02-09-2024 TSH 1.120 uIU/mL Normal 0.358-3.740 [facility] Comment on above: Order Comment: 103.1 Performed By: #### L 100.0500, L500.2500 #### [facility] [address] [place], [address] Basic Metabolic Profile (BMP )on 02-02-2024 BUN/CRE 19.2 RATIO Normal 10-20 [facility] Comment on above: Order Comment: 103.1 Performed By: #### L 100.4500, L100.0500, L500.2500 #### [facility] [address] [place], [address] CA,Total 9.4 mg/dL Normal 8.5-10.1 [facility] Comment on above: Order Comment: 103.1 Performed By: #### L 100.4500, L100.0500, L500.2500 #### [facility] [address] [place], [address] Chloride [Moles/Vol] 102 mmol/L Normal 98-107 [facility] Comment on above: Order Comment: 103.1 Performed By: #### L 100.4500, L100.0500, L500.2500 #### [facility] [address] [place], [address] CO2 [Moles/Vol] 32.0 mmol/L Normal 21.0-32.0 [facility] Comment on above: Order Comment: 103.1 Performed By: #### L 100.4500, L100.0500, L500.2500 #### [facility] [address] [place], [address] Creatinine [Mass/Vol] 0.78 mg/dL Normal 0.55-1.02 [facility] Comment on above: Order Comment: 103.1 Result Comment: The validity of the calculated GFR GFRAA in patients over 70 years has not been determined. Clinical correlation is essential. Performed By: #### L 100.4500, L100.0500, L500.2500 #### [facility] [address] [place], [address] EST GFR - AA 90 mL/min Normal >60 [facility] Comment on above: Order Comment: 103.1 Result Comment: Afri can [place] GFR Calc Performed By: #### L 100.4500, L100.0500, L500.2500 #### [facility] [address] [place], [address] GAP 4 Low 5-15 [facility] Comment on above: Order Comment: 103.1 Performed By: #### L 100.4500, L100.0500, L500.2500 #### [facility] [address] [place], [address] GFR/1.73 sq M.predicted among non-blacks MDRD (S/P/Bld) [Vol rate/Area] 74 mL/min/{1.73_m2} Normal >60 [facility] Comment on above: Order Comment: 103.1 Result Comment: Non- GFR Calc Performed By: #### L 100.4500, L100.0500, L500.2500 #### [facility] [address] [place], [address] Glucose [Mass/Vol] 80 mg/dL Normal 74-106 [facility] Comment on above: Order Comment: 103.1 Performed By: #### L 100.4500, L100.0500, L500.2500 #### [facility] [address] [place], [address] Potassium [Moles/Vol] 3.9 mmol/L Normal 3.5-5.1 [facility] Comment on above: Order Comment: 103.1 Performed By: #### L 100.4500, L100.0500, L500.2500 #### [facility] [address] [place], [address] Sodium [Moles/Vol] 138 mmol/L Normal 136-145 [facility] Comment on above: Order Comment: 103.1 Performed By: #### L 100.4500, L100.0500, L500.2500 #### [facility] [address] [place], [address] Urea nitrogen [Mass/Vol] 15 mg/dL Normal 7-18 [facility] Comment on above: Order Comment: 103.1 Performed By: #### L 100.4500, L100.0500, L500.2500 #### [facility] [address] [place], [address] CBC-Complete Blood Cnt No Di ffon 02-02-2024 Erythrocyte distribution width (RBC) [Ratio] 13.9 % Normal 11.6-14.6 [facility] Comment on above: Performed By: #### L 100.4500, L100.0500, L500.2500 #### [facility] [address] [place], [address] Hematocrit (Bld) [Volume fraction] 37.2 % Normal 37-47 [facility] Comment on above: Performed By: #### L 100.4500, L100.0500, L500.2500 #### [facility] [address] [place], [address] Hemoglobin (Bld) [Mass/Vol] 12.1 g/dL Normal 12.0-15.0 [facility] Comment on above: Performed By: #### L 100.4500, L100.0500, L500.2500 #### [facility] [address] [place], [address] MCH (RBC) [Entitic mass] 28.2 pg Normal 27.0-32.0 [facility] Comment on above: Performed By: #### L 100.4500, L100.0500, L500.2500 #### [facility] [address] [place], [address] MCHC (RBC) [Mass/Vol] 32.5 g/dL Normal 32-36 [facility] Comment on above: Performed By: #### L 100.4500, L100.0500, L500.2500 #### [facility] [address] [place], [address] MCV (RBC) [Entitic vol] 86.7 fL Normal 81-[address] [facility] Comment on above: Performed By: #### L 100.4500, L100.0500, L500.2500 #### [facility] [address] [place], [address] Platelet mean volume (Bld) [Entitic vol] 10.3 fL Normal 6.2-12.0 [facility] Comment on above: Performed By: #### L 100.4500, L100.0500, L500.2500 #### [facility] [address] [place], [address] Platelets (Bld) [#/Vol] 87 10*3/uL Low 150-[address] [facility] Comment on above: Performed By: #### L 100.4500, L100.0500, L500.2500 #### [facility] [address] [place], [address] RBC (Bld) [#/Vol] 4.29 10*6/uL Normal 4.2-5.4 [facility] Comment on above: Performed By: #### L 100.4500, L100.0500, L500.2500 #### [facility] [address] [place], [address] RDW SD 44.1 fl High 35.1-43.9 [facility] Comment on above: Performed By: #### L 100.4500, L100.0500, L500.2500 #### [facility] [address] [place], [address] WBC (Bld) [#/Vol] 4.7 10*3/uL Normal 4.4-11.0 [facility] Comment on above: Performed By: #### L 100.4500, L100.0500, L500.2500 #### [facility] [address] [place], [address] Differential Commenton 02-01 SMEAR COMMENT Normal [facility] Comment on above: Result Comment: NORM ACYTIC NORMACHROMIC MODERATELY DECREASED PLATELETS Performed By: #### L 100.4500, L100.0500, L500.2500 #### [facility] [address] [place], [address] Urine Cultureon 01-15-2024 URC Klebsiella pneumonia e sp pneum [place] Count >100,000 Klebsiella pneumoniae sp pneum: REACTION [facility] [address] [place], [address] Urinalysis, Completeon 01-12 BACTERIA 2+ /hpf Normal None Seen [facility] Comment on above: Order Comment: CLEAN CATCH Performed By: #### L 400.0001, M100.2200 #### [facility] [address] [place], [address] EPI,SQUAMOUS 0-5 SEEN Normal 5-10 [facility] Comment on above: Order Comment: CLEAN CATCH Performed By: #### L 400.0001, M100.2200 #### [facility] [address] [place], [address] RBC 0-5 SEEN Normal 0-5 [facility] Comment on above: Order Comment: CLEAN CATCH Performed By: #### L 400.0001, M100.0 #### [facility] [address] [place], [address] WBC >100 SEEN Normal 0-5 [facility] Comment on above: Order Comment: CLEAN CATCH Performed By: #### L 400.0001, M100.2200 #### [facility] [address] [place], [address] Mucus Ql (Urine sed) 0 SEEN Normal [facility] Comment on above: Order Comment: CLEAN CATCH Performed By: #### L 400.0001, M100.2200 #### [facility] [address] [place], [address] Urine Cultureon 01-04-2024 URC Klebsiella pneumonia e sp pneum [place] Count >100,000 Klebsiella pneumoniae sp pneum: REACTION [...] [facility] [address] [place], [address] Urinalysis, Completeon 01-01 EPI,SQUAMOUS 0-5 SEEN Normal 5-10 [facility] Comment on above: Order Comment: CLEAN CATCH Performed By: #### L 400.0001, M100.2200 #### [facility] [address] [place], [address] BACTERIA 2+ /hpf Normal None Seen [facility] Comment on above: Order Comment: CLEAN CATCH Performed By: #### L 400.0001, M100.0 #### [facility] [address] [place], [address] EPI,TRANSITION 0-5 SEEN Normal 0-5 [facility] Comment on above: Order Comment: CLEAN CATCH Performed By: #### L 400.0001, M100.2200 #### [facility] [address] [place], [address] WBC 50-100 SEEN Normal 0-5 [facility] Comment on above: Order Comment: CLEAN CATCH Performed By: #### L 400.0001, M100.2200 #### [facility] [address] [place], [address] Mucus Ql (Urine sed) 0 SEEN Normal [facility] Comment on above: Order Comment: CLEAN CATCH Performed By: #### L 400.0001, M100.2200 #### [facility] [address] [place], [address] RBC 0 SEEN Normal 0-5 [facility] Comment on above: Order Comment: CLEAN CATCH Performed By: #### L 400.0001, #### [facility] [address] [place], [address] Thyroid Stim Hormone (TSH)on 12-29-2023 TSH 0.328 uIU/mL Low 0.358-3.740 [facility] Comment on above: Order Comment: 103.1 Performed By: #### L 501.9520 #### [facility] [address] [place], [address] CBC-Complete Blood Cnt No Di ffon 11-17-2023 Erythrocyte distribution width (RBC) [Ratio] 18.2 % High 11.6-14.6 [facility] Comment on above: Order Comment: 103-1 Performed By: #### L 400.0001, #### [facility] [address] [place], [address] Hematocrit (Bld) [Volume fraction] 37.9 % Normal 37-47 [facility] Comment on above: Order Comment: 103-1 Performed By: #### L 400.0001, #### [facility] [address] [place], [address] Hemoglobin (Bld) [Mass/Vol] 12.2 g/dL Normal 12.0-15.0 [facility] Comment on above: Order Comment: 103-1 Performed By: #### L 400.0001, #### [facility] [address] [place], [address] MCH (RBC) [Entitic mass] 28.1 pg Normal 27.0-32.0 [facility] Comment on above: Order Comment: 103-1 Performed By: #### L 400.0001, #### [facility] [address] [place], [address] MCHC (RBC) [Mass/Vol] 32.2 g/dL Normal 32-36 [facility] Comment on above: Order Comment: 103-1 Performed By: #### L 400.0001, #### [facility] [address] [place], [address] MCV (RBC) [Entitic vol] 87.3 fL Normal 81-[address] [facility] Comment on above: Order Comment: 103-1 Performed By: #### L 400.0001, #### [facility] [address] [place], [address] Platelet mean volume (Bld) [Entitic vol] 10.6 fL Normal 6.2-12.0 [facility] Comment on above: Order Comment: 103-1 Performed By: #### L 400.0001, #### [facility] [address] [place], [address] Platelets (Bld) [#/Vol] 112 10*3/uL Low 150-450 [facility] Comment on above: Order Comment: 103-1 Performed By: #### L 400.0001, #### [facility] [address] [place], [address] RBC (Bld) [#/Vol] 4.34 10*6/uL Normal 4.2-5.4 [facility] Comment on above: Order Comment: 103-1 Performed By: #### L 400.0001, #### [facility] [address] [place], [address] RDW SD 58.2 fl High 35.1-43.9 [facility] Comment on above: Order Comment: 103-1 Performed By: #### L 400.0001, #### [facility] [address] [place], [address] WBC (Bld) [#/Vol] 6.8 10*3/uL Normal 4.4-11.0 [facility] Comment on above: Order Comment: 103-1 Performed By: #### L 400.0001, #### [facility] [address] [place], [address] Comprehensive Metabolic Prof ilon 11-17-2023 Albumin [Mass/Vol] 3.0 g/dL Low 3.2-5.0 [facility] Comment on above: Order Comment: 103-1 Performed By: #### L 400.0001, #### [facility] [address] [place], [address] Albumin/Globulin [Mass ratio] 0.8 {ratio} Low 0.9-2.4 [facility] Comment on above: Order Comment: 103-1 Performed By: #### L 400.0001, #### [facility] [address] [place], [address] ALK P 117 U/L Normal 45-117 [facility] Comment on above: Order Comment: 103-1 Performed By: #### L 400.0001, #### [facility] [address] [place], [address] ALT [Catalytic activity/Vol] 19 U/L Normal 13-56 [facility] Comment on above: Order Comment: 103-1 Performed By: #### L 400.0001, #### [facility] [address] [place], [address] AST [Catalytic activity/Vol] 21 U/L Normal 15-37 [facility] Comment on above: Order Comment: 103-1 Performed By: #### L 400.0001, #### [facility] [address] [place], [address] Bilirubin [Mass/Vol] 0.50 mg/dL Normal 0.20-1.00 [facility] Comment on above: Order Comment: Result Comment: For patients on eltrombopag therapy, use of Dimension [place] TBIL is not recommended. Performed By: #### L 400.0001, #### [facility] [address] [place], [address] BUN/CRE 16.9 RATIO Normal 10-20 [facility] Comment on above: Order Comment: Performed By: #### L 400.0001, #### [facility] [address] [place], [address] CA,Total 9.9 mg/dL Normal 8.5-10.1 [facility] Comment on above: Order Comment: Performed By: #### L 400.0001, #### [facility] [address] [place], [address] Chloride [Moles/Vol] 99 mmol/L Normal 98-107 [facility] Comment on above: Order Comment: Performed By: #### L 400.0001, #### [facility] [address] [place], [address] CO2 [Moles/Vol] 32.0 mmol/L Normal 21.0-32.0 [facility] Comment on above: Order Comment: Performed By: #### L 400.0001, #### [facility] [address] [place], [address] Creatinine [Mass/Vol] 0.89 mg/dL Normal 0.55-1.02 [facility] Comment on above: Order Comment: Result Comment: The validity of the calculated GFR GFRAA in patients over 70 years has not been determined. Clinical correlation is essential. Performed By: #### L 400.0001, #### [facility] [address] [place], [address] EST GFR - AA 78 mL/min Normal >60 [facility] Comment on above: Order Comment: Result Comment: Afri can [place] GFR Calc Performed By: #### L 400.0001, #### [facility] [address] [place], [address] GAP 5 Normal 5-15 [facility] Comment on above: Order Comment: Performed By: #### L 400.0001, #### [facility] [address] [place], [address] GFR/1.73 sq M.predicted among non-blacks MDRD (S/P/Bld) [Vol rate/Area] 64 mL/min/{1.73_m2} Normal >60 [facility] Comment on above: Order Comment: Result Comment: Non- GFR Calc Performed By: #### L 400.0001, #### [facility] [address] [place], [address] Globulin (S) [Mass/Vol] 3.7 g/dL Normal 2.2-4.2 [facility] Comment on above: Order Comment: Performed By: #### L 400.0001, #### [facility] [address] [place], [address] Glucose [Mass/Vol] 107 mg/dL High 74-106 [facility] Comment on above: Order Comment: Result Comment: Fast ing Glucose result from 100 to 125 mg/dL suggests IMPAIRED HOMEOSTASIS per A.D.A. criteria. Performed By: #### L 400.0001, #### [facility] [address] [place], [address] Potassium [Moles/Vol] 3.8 mmol/L Normal 3.5-5.1 [facility] Comment on above: Order Comment: Performed By: #### L 400.0001, #### [facility] [address] [place], [address] Sodium [Moles/Vol] 136 mmol/L Normal 136-145 [facility] Comment on above: Order Comment: 103-1 Performed By: #### L 400.0001, .2199 #### [facility] [address] [place], [address] T PROT 6.7 g/dL Normal 6.4-8.2 [facility] Comment on above: Order Comment: 103-1 Performed By: #### L 400.0001, #### [facility] [address] [place], [address] Urea nitrogen [Mass/Vol] 15 mg/dL Normal 7-18 [facility] Comment on above: Order Comment: 103-1 Performed By: #### L 400.0001, #### [facility] [address] [place], [address] Thyroid Stim Hormone (TSH)on 11-17-2023 TSH 4.030 uIU/mL High 0.358-3.740 [facility] Comment on above: Order Comment: 103-1 Performed By: #### L 400.0001, #### [facility] [address] [place], [address] CASE MANAGEMon 10-24-2023 CASE MANAGEM Normal [facility] CASE MANAGEM Normal [facility] CASE MANAGEM Normal [facility] CBC panel Auto (Bld)on 10-23 Erythrocyte distribution width (RBC) [Ratio] 16.3 % High 11.5-15.0 [facility] Comment on above: Order Comment: Speci men Type: BLOOD SPECIMENOrdering Facility: [facility] Address: [address] [place] [address] [place] [address] Performed By: #### 5 8410-2 ####[facility] LABORATORYCLIA [id number] [address] [place] Hematocrit (Bld) [Volume fraction] 35.6 % Low 36.0-46.0 [facility] Comment on above: Order Comment: Speci men Type: BLOOD SPECIMENOrdering Facility: [facility] Address: [address] [place] [address] Performed By: #### 5 8410-2 ####[facility] LABORATORYCLIA [id number] [place] [address] [place] Hemoglobin (Bld) [Mass/Vol] 11.6 g/dL Normal 11.5-15.5 [facility] Comment on above: Order Comment: Speci men Type: BLOOD SPECIMENOrdering Facility: [facility] Address: [address] [place] [address] Performed By: #### 5 8410-2 ####[facility] LABORATORYCLIA [id number] [address] [place] MCH (RBC) [Entitic mass] 27.7 pg Normal 26.0-34.0 [facility] Comment on above: Order Comment: Speci men Type: BLOOD SPECIMENOrdering Facility: [facility] Address: [address] [place] [address] Performed By: #### 5 8410-2 ####[facility] LABORATORYCLIA [id number] [place] [address] [place] MCHC (RBC) [Mass/Vol] 32.6 g/dL Normal 30.5-36.0 [facility] Comment on above: Order Comment: Speci men Type: BLOOD SPECIMENOrdering Facility: [facility] Address: [address] [place], [place] [address] Performed By: #### 5 8410-2 ####[facility] LABORATORYIA [id number] [address] [place] MCV (RBC) [Entitic vol] 85.0 fL Normal 80.0-100.0 [facility] Comment on above: Order Comment: Speci men Type: BLOOD SPECIMENOrdering Facility: [facility] Address: [address] [place] [address] Performed By: #### 5 8410-2 ####[facility] LABORATORYCLIA [id number] [place] [id number] [place] Nucleated RBC (Bld) [#/Vol] 10*3/uL Normal <0.01 [facility] Comment on above: Order Comment: Speci men Type: BLOOD SPECIMENOrdering Facility: [facility] Address: [address] [place] [address] Performed By: #### 5 8410-2 ####[facility] LABORATORYCLIA [id number] [place] [address] [place] Platelet mean volume (Bld) [Entitic vol] 9.3 fL Normal 9.0-12.7 [facility] Comment on above: Order Comment: Speci men Type: BLOOD SPECIMENOrdering Facility: [facility] Address: [address] [place] [address] Performed By: #### 5 8410-2 ####[facility] LABORATORYCLIA [id number] [place] [address] [place] Platelets (Bld) [#/Vol] 102 10*3/uL Low 150-400 [facility] Comment on above: Order Comment: Speci men Type: BLOOD SPECIMENOrdering Facility: [facility] Address: [address] [place] [address] Performed By: #### 5 8410-2 ####[facility] LABORATORYCLIA [id number] [place] [address] [place] RBC (Bld) [#/Vol] 4.19 10*6/uL Normal 3.90-5.20 [facility] Comment on above: Order Comment: Speci men Type: BLOOD SPECIMENOrdering Facility: [facility] Address: [facility] [place] [address] Performed By: #### 5 8410-2 ####[facility] LABORATORYCLIA [id number] [place] [id number] [place] WBC (Bld) [#/Vol] 5.62 10*3/uL Normal 3.70-11.00 [facility] Comment on above: Order Comment: Speci men Type: BLOOD SPECIMENOrdering Facility: [facility] Address: [address] [place] [address] Performed By: #### 5 8410-2 ####[facility] LABORATORYCLIA [id number] [place] [id number] [place] CNDSon 10-24-2023 CNDS Normal [facility] Comprehensive metabolic 2000 panelon 10-24-2023 Albumin [Mass/Vol] 2.8 g/dL Low 3.2-5.0 [facility] Comment on above: Order Comment: Speci men Type: BLOOD SPECIMENOrdering Facility: [facility] Address: [address] [place] [address] Performed By: #### 2 4323-8 ####[facility] LABORATORYCLIA [id number] [place] [address] [place] ALP [Catalytic activity/Vol] 77 U/L Normal 45-117 [facility] Comment on above: Order Comment: Speci men Type: BLOOD SPECIMENOrdering Facility: [facility] Address: [address] [place] [address] Performed By: #### 2 4323-8 ####[facility] LABORATORYCLIA [id number] [place] [id number] [place] ALT [Catalytic activity/Vol] 15 U/L Normal 13-61 [facility] Comment on above: Order Comment: Speci men Type: BLOOD SPECIMENOrdering Facility: [facility] Address: [address] [place] [address] Result Comment: Resu lts may be falsely depressed after the administration of Sulfasalazine and/or Sulfapyridine. Performed By: #### 2 4323-8 ####[facility] LABORATORYCLIA [id number] [place] [id number] [place] Anion gap [Moles/Vol] 5 mmol/L Normal 5-16 [facility] Comment on above: Order Comment: Speci men Type: BLOOD SPECIMENOrdering Facility: [facility] Address: [address] [place] [address] Performed By: #### 2 4323-8 ####[facility] LABORATORYCLIA [id number] [place] [address] [place] AST [Catalytic activity/Vol] 23 U/L Normal 8-34 [facility] Comment on above: Order Comment: Speci men Type: BLOOD SPECIMENOrdering Facility: [facility] Address: [address] [place] [address] Result Comment: Resu lts may be falsely depressed after the administration of Sulfasalazine and/or Sulfapyridine. Performed By: #### 2 4323-8 ####[facility] LABORATORYCLIA [id number] [place] [address] [place] Bilirubin [Mass/Vol] 0.6 mg/dL Normal 0.2-1.0 [facility] Comment on above: Order Comment: Speci men Type: BLOOD SPECIMENOrdering Facility: [facility] Address: [address] [place] [address] Performed By: #### 2 4323-8 ####[facility] LABORATORYCLIA [id number] [place] [address] [place] Calcium [Mass/Vol] 10.0 mg/dL Normal 8.5-10.5 [facility] Comment on above: Order Comment: Speci men Type: BLOOD SPECIMENOrdering Facility: [facility] Address: [address] [place] [address] Performed By: #### 2 4323-8 ####[facility] LABORATORYCLIA [id number] [place] [address] [place] Chloride [Moles/Vol] 106 mmol/L Normal 98-107 [facility] Comment on above: Order Comment: Speci men Type: BLOOD SPECIMENOrdering Facility: [facility] Address: [address] [place] [address] Performed By: #### 2 4323-8 ####[facility] LABORATORYCLIA [id number] [place] [address] [place] CO2 [Moles/Vol] 25 mmol/L Normal 21-32 [facility] Comment on above: Order Comment: Speci men Type: BLOOD SPECIMENOrdering Facility: [facility] Address: [address] [place] [address] Performed By: #### 2 4323-8 ####[facility] LABORATORYCLIA [id number] [place] [address] [place] Creatinine [Mass/Vol] 0.70 mg/dL Normal 0.51-0.95 [facility] Comment on above: Order Comment: Speci men Type: BLOOD SPECIMENOrdering Facility: [facility] Address: [address] [place] [address] Result Comment: Linn ents receiving either N-Acetylcysteine (NAC) or Metamizole prior to venipuncture, may have falsely depressed results. Performed By: #### 2 4323-8 ####[facility] LABORATORYCLIA [id number] [address] Creatinine and Glomerular filtration rate.predicted panel (S/P/Bld) 85 mL/min/1.73m??? Normal >=60 [facility] Comment on above: Order Comment: Speci men Type: BLOOD SPECIMENOrdering Facility: [facility] Address: [address] [place] [address] Result Comment: Esme mated Glomerular Filtration Rate [...] actual GFR. Performed By: #### 2 4323-8 ####[facility] LABORATORYCLIA [id number] [place] [address] [place] Glucose [Mass/Vol] 71 mg/dL Normal 70-100 [facility] Comment on above: Order Comment: Speci men Type: BLOOD SPECIMENOrdering Facility: [facility] Address: [address] [place] [id number] Result Comment: The [place] Diabetes Association (ADA) provides guidance for cutoff [...] Standards of Medical Care in Diabetes 2016, [place] Diabetes Association. Diabetes Care. 2016.39(Suppl 1).Results may be falsely elevated after the administration of Sulfapyridine.Results may be falsely depressed after the administration of Sulfasalazine. Performed By: #### 2 4323-8 ####[facility] LABORATORYCLIA [id number] [place] [address] [place] Potassium [Moles/Vol] 4.5 mmol/L Normal 3.5-5.1 [facility] Comment on above: Order Comment: Speci men Type: BLOOD SPECIMENOrdering Facility: [facility] Address: [address] [place] [address] Performed By: #### 2 4323-8 ####[facility] LABORATORYCLIA [id number] [place] [id number] [place] Protein [Mass/Vol] 5.8 g/dL Low 6.0-8.5 [facility] Comment on above: Order Comment: Speci men Type: BLOOD SPECIMENOrdering Facility: [facility] Address: [address] [place] [address] Performed By: #### 2 4323-8 ####[facility] LABORATORYCLIA [id number] [place] [address] [place] Sodium [Moles/Vol] 136 mmol/L Normal 136-145 [facility] Comment on above: Order Comment: Speci men Type: BLOOD SPECIMENOrdering Facility: [facility] Address: [address] [place] [address] Performed By: #### 2 4323-8 ####[facility] LABORATORYCLIA [id number] [place] [address] [place] Urea nitrogen [Mass/Vol] 8 mg/dL Normal 10-02 [facility] Comment on above: Order Comment: Speci men Type: BLOOD SPECIMENOrdering Facility: [facility] Address: [address] [place] [address] [place] [address] Performed By: #### 2 4323-8 ####[facility] LABORATORYCLIA [id number] [place] [address] [place] THERAPY NTon 10-24-2023 THERAPY NT Normal [facility] ALLIED HEALTHon 10-23-2023 ALLIED HEALTH Normal [facility] AST SerPl-cCncon 10-23-2023 AST [Catalytic activity/Vol] 21 U/L Normal [facility] Comment on above: Order Comment: Speci men Type: BLOOD SPECIMENOrdering Facility: [facility] Address: [address] [place] [address] Result Comment: Resu lts may be falsely depressed after the administration of Sulfasalazine and/or Sulfapyridine. Performed By: #### 1 920-8, 57991-7, 2156-08 ####[facility] LABORATORYCLIA [id number] [place] [id number] [place] Basic metabolic 2000 panelon 10-23-2023 Anion gap [Moles/Vol] 5 mmol/L Normal 07-23 [facility] Comment on above: Order Comment: Speci men Type: BLOOD SPECIMENOrdering Facility: [facility] Address: [address] [place] [address] Performed By: #### 1 920-8, 56442-1, 2156-08 ####[facility] LABORATORYCLIA [id number] [place] [id number] [place] Calcium [Mass/Vol] 10.0 mg/dL Normal 8.5-10.5 [facility] Comment on above: Order Comment: Speci men Type: BLOOD SPECIMENOrdering Facility: [facility] Address: [address] [place], [place] [address] Performed By: #### 1 920-8, 27820-9, 2156-08 ####[facility] LABORATORYCLIA [id number] [place] [id number] [place] Chloride [Moles/Vol] 105 mmol/L Normal 98-107 [facility] Comment on above: Order Comment: Speci men Type: BLOOD SPECIMENOrdering Facility: [facility] Address: [address] [place] [address] Performed By: #### 1 920-8, 34530-5, 2156-08 ####[facility] LABORATORYCLIA [id number] [place] [id number] [place] CO2 [Moles/Vol] 24 mmol/L Normal 21-32 [facility] Comment on above: Order Comment: Speci men Type: BLOOD SPECIMENOrdering Facility: [facility] Address: [address] [place] [address] Performed By: #### 1 920-8, 67313-9, 2156-08 ####[facility] LABORATORYCLIA [id number] [place] [id number] [place] Creatinine [Mass/Vol] 0.74 mg/dL Normal 0.51-0.95 [facility] Comment on above: Order Comment: Speci men Type: BLOOD SPECIMENOrdering Facility: [facility] Address: [address] [place] [address] Result Comment: Linn ents receiving either N-Acetylcysteine (NAC) or Metamizole prior to venipuncture, may have falsely depressed results. Performed By: #### 1 920-8, 46362-7, 2156-08 ####[facility] LABORATORYCLIA [id number] [place] [address] [place] Creatinine and Glomerular filtration rate.predicted panel (S/P/Bld) 80 mL/min/1.73m??? Normal >=60 [facility] Comment on above: Order Comment: Speci men Type: BLOOD SPECIMENOrdering Facility: [facility] Address: [address] [place] [id number] Result Comment: Esme mated Glomerular Filtration Rate [...] actual GFR. Performed By: #### 1 920-8, 71417-2, 2156-08 ####[facility] LABORATORYCLIA [id number] [place] [id number] [place] Glucose [Mass/Vol] 71 mg/dL Normal 70-100 [facility] Comment on above: Order Comment: Brady men Type: BLOOD SPECIMENOrdering Facility: [facility] Address: [address] [place] [address] Result Comment: The [place] Diabetes Association (ADA) provides guidance for cutoff [...] Standards of Medical Care in Diabetes 2016, [place] Diabetes Association. Diabetes Care. 2016.39(Suppl 1).Results may be falsely elevated after the administration of Sulfapyridine.Results may be falsely depressed after the administration of Sulfasalazine. Performed By: #### 1 920-8, 38233-2, 2156-08 ####[facility] LABORATORYCLIA [id number] [place] [id number] [place] Potassium [Moles/Vol] 3.9 mmol/L Normal 3.5-5.1 [facility] Comment on above: Order Comment: Speci men Type: BLOOD SPECIMENOrdering Facility: [facility] Address: [address] [place] [address] Performed By: #### 1 920-8, 10715-0, 2156-08 ####[facility] LABORATORYCLIA [id number] [place] [address] [place] Sodium [Moles/Vol] 134 mmol/L Low 136-145 [facility] Comment on above: Order Comment: Speci men Type: BLOOD SPECIMENOrdering Facility: [facility] Address: [address] [place] [address] Performed By: #### 1 920-8, 23906-4, 2156-08 ####[facility] LABORATORYCLIA [id number] [place] Urea nitrogen [Mass/Vol] 9 mg/dL Normal 7- [facility] Comment on above: Order Comment: Speci men Type: BLOOD SPECIMENOrdering Facility: [facility] Address: [address] [place], [place] [address] Performed By: #### 1 920-8, 08707-7, 2156-08 ####[facility] LABORATORYCLIA [id number] [place] [id number] [place] CASE MANAGEMon 10-23-2023 CASE MANAGEM Normal [facility] CBC panel Auto (Bld)on 10-22 Erythrocyte distribution width (RBC) [Ratio] 16.4 % High 11.5-15.0 [facility] Comment on above: Order Comment: Speci men Type: BLOOD SPECIMENOrdering Facility: [facility] Address: [address] [place], [place] [address] Performed By: #### 5 8410-2 ####[facility] LABORATORYCLIA [id number] [place] [id number] [place] Hematocrit (Bld) [Volume fraction] 36.8 % Normal 36.0-46.0 [facility] Comment on above: Order Comment: Speci men Type: BLOOD SPECIMENOrdering Facility: [facility] Address: [address] [place] [address] Performed By: #### 5 8410-2 ####[facility] LABORATORYCLIA [id number] [address] [place] Hemoglobin (Bld) [Mass/Vol] 11.7 g/dL Normal 11.5-15.5 [facility] Comment on above: Order Comment: Speci men Type: BLOOD SPECIMENOrdering Facility: [facility] Address: [address] [place] [address] Performed By: #### 5 8410-2 ####[facility] LABORATORYCLIA [id number] [address] [place] MCH (RBC) [Entitic mass] 27.4 pg Normal 26.0-34.0 [facility] Comment on above: Order Comment: Speci men Type: BLOOD SPECIMENOrdering Facility: [facility] Address: [address] [place] [address] Performed By: #### 5 8410-2 ####[facility] LABORATORYCLIA [id number] [address] MCHC (RBC) [Mass/Vol] 31.8 g/dL Normal 30.5-36.0 [facility] Comment on above: Order Comment: Speci men Type: BLOOD SPECIMENOrdering Facility: [facility] Address: [address] [place] [address] Performed By: #### 5 8410-2 ####[facility] LABORATORYCLIA [id number] [address] [place] MCV (RBC) [Entitic vol] 86.2 fL Normal 80.0-100.0 [facility] Comment on above: Order Comment: Speci men Type: BLOOD SPECIMENOrdering Facility: [facility] Address: [address] [place] [address] Performed By: #### 5 8410-2 ####[facility] LABORATORYCLIA [id number] [address] [place] Nucleated RBC (Bld) [#/Vol] 10*3/uL Normal <0.01 [facility] Comment on above: Order Comment: Speci men Type: BLOOD SPECIMENOrdering Facility: [facility] Address: [address] [place] [address] Performed By: #### 5 8410-2 ####[facility] LABORATORYCLIA [id number] [place] [id number] [place] Platelet mean volume (Bld) [Entitic vol] 9.2 fL Normal 9.0-12.7 [facility] Comment on above: Order Comment: Speci men Type: BLOOD SPECIMENOrdering Facility: [facility] Address: [address] [place] [address] Performed By: #### 5 8410-2 ####[facility] LABORATORYCLIA [id number] [place] [id number] [place] Platelets (Bld) [#/Vol] 97 10*3/uL Low 150-400 [facility] Comment on above: Order Comment: Speci men Type: BLOOD SPECIMENOrdering Facility: [facility] Address: [address] [place] [address] Performed By: #### 5 8410-2 ####[facility] LABORATORYCLIA [id number] [place] [address] [place] RBC (Bld) [#/Vol] 4.27 10*6/uL Normal 3.90-5.20 [facility] Comment on above: Order Comment: Speci men Type: BLOOD SPECIMENOrdering Facility: [facility] Address: [address] [place] [address] Performed By: #### 5 8410-2 ####[facility] LABORATORYCLIA [id number] [place] [id number] [place] WBC (Bld) [#/Vol] 5.77 10*3/uL Normal 3.70-11.00 [facility] Comment on above: Order Comment: Speci men Type: BLOOD SPECIMENOrdering Facility: [facility] Address: [address] [place] [address] Performed By: #### 5 8410-2 ####[facility] LABORATORYCLIA [id number] [address] [place] Erythrocyte distribution width (RBC) [Ratio] 16.3 % High 11.5-15.0 [facility] Comment on above: Order Comment: Speci men Type: BLOOD SPECIMENOrdering Facility: [facility] Address: [address] [place] [address] Performed By: #### 5 8410-2 ####[facility] LABORATORYCLIA [id number] [address] [place] Hematocrit (Bld) [Volume fraction] 36.0 % Normal 36.0-46.0 [facility] Comment on above: Order Comment: Speci men Type: BLOOD SPECIMENOrdering Facility: [facility] Address: [address] [place] [address] Performed By: #### 5 8410-2 ####[facility] LABORATORYCLIA [id number] [address] [place] Hemoglobin (Bld) [Mass/Vol] 12.1 g/dL Normal 11.5-15.5 [facility] Comment on above: Order Comment: Speci men Type: BLOOD SPECIMENOrdering Facility: [facility] Address: [address] [place] [address] Performed By: #### 5 8410-2 ####[facility] LABORATORYCLIA [id number] [place] [address] [place] MCH (RBC) [Entitic mass] 28.3 pg Normal 26.0-34.0 [facility] Comment on above: Order Comment: Speci men Type: BLOOD SPECIMENOrdering Facility: [facility] Address: [address] [place] [address] Performed By: #### 5 8410-2 ####[facility] LABORATORYCLIA [id number] [address] [place] MCHC (RBC) [Mass/Vol] 33.6 g/dL Normal 30.5-36.0 [facility] Comment on above: Order Comment: Speci men Type: BLOOD SPECIMENOrdering Facility: [facility] Address: [address] [place] [address] Performed By: #### 5 8410-2 ####[facility] LABORATORYCLIA [id number] [place] [id number] [facility] MCV (RBC) [Entitic vol] 84.1 fL Normal 80.0-100.0 [facility] Comment on above: Order Comment: Speci men Type: BLOOD SPECIMENOrdering Facility: [facility] Address: [address] [place] [address] Performed By: #### 5 8410-2 ####[facility] LABORATORYCLIA [id number] [address] OF [facility] Nucleated RBC (Bld) [#/Vol] 10*3/uL Normal <0.01 [facility] Comment on above: Order Comment: Speci men Type: BLOOD SPECIMENOrdering Facility: [facility] Address: [address] [place] [address] Performed By: #### 5 8410-2 ####[facility] LABORATORYCLIA [id number] [address] [place] Platelet mean volume (Bld) [Entitic vol] 10.0 fL Normal 9.0-12.7 [facility] Comment on above: Order Comment: Speci men Type: BLOOD SPECIMENOrdering Facility: [facility] Address: [address] [place] [address] Performed By: #### 5 8410-2 ####[facility] LABORATORYCLIA [id number] [address] Platelets (Bld) [#/Vol] 107 10*3/uL Low 150-400 [facility] Comment on above: Order Comment: Speci men Type: BLOOD SPECIMENOrdering Facility: [facility] Address: [address] [place] [address] Result Comment: No c lot detected. Performed By: #### 5 8410-2 ####[facility] LABORATORYCLIA [id number] [address] [place] RBC (Bld) [#/Vol] 4.28 10*6/uL Normal 3.90-5.20 [facility] Comment on above: Order Comment: Speci men Type: BLOOD SPECIMENOrdering Facility: [facility] Address: [address] [place] [address] Performed By: #### 5 8410-2 ####[facility] LABORATORYCLIA [id number] [place] [id number] [facility] WBC (Bld) [#/Vol] 6.15 10*3/uL Normal 3.70-11.00 [facility] Comment on above: Order Comment: Speci men Type: BLOOD SPECIMENOrdering Facility: [facility] Address: [address] [place] [address] Performed By: #### 5 8410-2 ####[facility] LABORATORYCLIA [id number] [place] [id number] [facility] CK SerPl-cCncon 10-23-2023 CK [Catalytic activity/Vol] 88 U/L Normal 28-152 [facility] Comment on above: Order Comment: Speci men Type: BLOOD SPECIMENOrdering Facility: [facility] Address: [address] [place] [address] Performed By: #### 1 920-8, 83158-2, 2157-6 ####[facility] LABORATORYCLIA [id number] [place] [id number] [facility] CK [Catalytic activity/Vol] Normal [facility] Comment on above: Order Comment: Speci men Type: BLOOD SPECIMENOrdering Facility: [facility] Address: [address] [place] [address] Result Comment: Unab le to assay due to interference from hemolysis. Suggest reorder as clinically indicated. Performed By: #### 2 157-6, 57737-2, 32630-8 ####[facility] LABORATORYCLIA [id number] [place] [id number] [facility] [place] Comprehensive metabolic 2000 panelon 10-23-2023 Albumin [Mass/Vol] 2.9 g/dL Low 3.2-5.0 [facility] Comment on above: Order Comment: Speci men Type: BLOOD SPECIMENOrdering Facility: [facility] Address: [address] [place] [address] Performed By: #### 2 157-6, 82265-5, ####[facility] LABORATORYCLIA [id number] [place] [address] [place] ALP [Catalytic activity/Vol] 67 U/L Normal 45-117 [facility] Comment on above: Order Comment: Speci men Type: BLOOD SPECIMENOrdering Facility: [facility] Address: [address] [place], [place] [address] Performed By: #### 2 157-6, 21588-4, ####[facility] LABORATORYCLIA [id number] [place] [id number] [place] ALT [Catalytic activity/Vol] 13 U/L Normal 13-61 [facility] Comment on above: Order Comment: Speci men Type: BLOOD SPECIMENOrdering Facility: [facility] Address: [address] [place] [address] Result Comment: Resu lts may be falsely depressed after the administration of Sulfasalazine and/or Sulfapyridine. Performed By: #### 2 157-6, 88967-5, ####[facility] LABORATORYCLIA [id number] [place] [address] [place] Anion gap [Moles/Vol] 5 mmol/L Normal 5-16 [facility] Comment on above: Order Comment: Speci men Type: BLOOD SPECIMENOrdering Facility: [facility] Address: [address] [place] [address] Performed By: #### 2 157-6, 25722-2, ####[facility] LABORATORYCLIA [id number] [place] [address] [place] AST [Catalytic activity/Vol] Normal [facility] Comment on above: Order Comment: Speci men Type: BLOOD SPECIMENOrdering Facility: [facility] Address: [address] [place], [place] [address] Result Comment: Unab le to assay due to interference from hemolysis. Suggest reorder as clinically indicated.Results may be falsely depressed after the administration of Sulfasalazine and/or Sulfapyridine. Performed By: #### 2 157-6, 79908-8, ####[facility] LABORATORYCLIA [id number] [place] [id number] [place] Bilirubin [Mass/Vol] 0.8 mg/dL Normal 0.2-1.0 [facility] Comment on above: Order Comment: Speci men Type: BLOOD SPECIMENOrdering Facility: [facility] Address: [address] [place] [address] Performed By: #### 2 157-6, 43842-2, ####[facility] LABORATORYCLIA [id number] [place] [id number] [place] Calcium [Mass/Vol] 9.9 mg/dL Normal 8.5-10.5 [facility] Comment on above: Order Comment: Speci men Type: BLOOD SPECIMENOrdering Facility: [facility] Address: [address] [place] [address] Performed By: #### 2 157-6, 99833-8, ####[facility] LABORATORYCLIA [id number] [place] [address] [place] Chloride [Moles/Vol] 103 mmol/L Normal 98-107 [facility] Comment on above: Order Comment: Speci men Type: BLOOD SPECIMENOrdering Facility: [facility] Address: [address] [place] [address] Performed By: #### 2 157-6, 91342-3, ####[facility] LABORATORYCLIA [id number] [place] [id number] [place] CO2 [Moles/Vol] 27 mmol/L Normal 21-32 [facility] Comment on above: Order Comment: Speci men Type: BLOOD SPECIMENOrdering Facility: [facility] Address: [address] [place] [address] Performed By: #### 2 157-6, 73028-1, 45942-2 ####[facility] LABORATORYCLIA [id number] [place] [id number] [place] Creatinine [Mass/Vol] Normal [facility] Comment on above: Order Comment: Brady smith Type: BLOOD SPECIMENOrdering Facility: [facility] Address: [address] [place] [address] Result Comment: Unab le to assay due to interference from hemolysis. Suggest reorder as clinically indicated. Performed By: #### 2 157-6, 45881-5, 65826-8 ####[facility] LABORATORYCLIA [id number] [place] [address] [place] Creatinine and Glomerular filtration rate.predicted panel (S/P/Bld) Normal [facility] Comment on above: Order Comment: Brady smith Type: BLOOD SPECIMENOrdering Facility: [facility] Address: [address] [place] [address] Result Comment: Esme mated Glomerular Filtration Rate [...] actual GFR. Performed By: #### 2 157-6, 12525-6, 54638-8 ####[facility] LABORATORYCLIA [id number] [place] [id number] [place] Glucose [Mass/Vol] 69 mg/dL Low 70-100 [facility] Comment on above: Order Comment: Brady luis Type: BLOOD SPECIMENOrdering Facility: [facility] Address: [address] [place] [address] Result Comment: The [place] [employer] Association (ADA) provides guidance for cutoff [...] Standards of Medical Care in Diabetes 2016, [place] [employer]. Diabetes Care. 2016.39(Suppl 1).Results may be falsely elevated after the administration of Sulfapyridine.Results may be falsely depressed after the administration of Sulfasalazine. Performed By: #### 2 157-6, 66884-4, ####[facility] LABORATORYCLIA [id number] [place] [id number] [place] Potassium [Moles/Vol] Normal [facility] Comment on above: Order Comment: Brady smiht Type: BLOOD SPECIMENOrdering Facility: [facility] Address: [address] [place] [address] Result Comment: Unab le to assay due to interference from hemolysis. Suggest reorder as clinically indicated. &XA&NOTIFIED WILIAM R, HEMOLYZED K,BUN,ECREA,AST, CK Performed By: #### 2 157-6, 22634-5, ####[facility] LABORATORYCLIA [id number] [place] [id number] [place] Protein [Mass/Vol] 6.0 g/dL Normal 6.0-8.5 [facility] Comment on above: Order Comment: Brady smith Type: BLOOD SPECIMENOrdering Facility: [facility] Address: [address] [place] [address] Performed By: #### 2 157-6, 00211-9, ####[facility] LABORATORYCLIA [id number] [place] [id number] [place] Sodium [Moles/Vol] 135 mmol/L Low 136-145 [facility] Comment on above: Order Comment: Brady smith Type: BLOOD SPECIMENOrdering Facility: [facility] Address: [address] [place], [place] [address] Performed By: #### 2 157-6, 70930-3, ####[facility] LABORATORYCLIA [id number] [place] [address] [place] Urea nitrogen [Mass/Vol] Normal [facility] Comment on above: Order Comment: Speci men Type: BLOOD SPECIMENOrdering Facility: [facility] Address: [address] [place] [address] Result Comment: Unab le to assay due to interference from hemolysis. Suggest reorder as clinically indicated. Performed By: #### 2 157-6, 75964-2, 99658-5 ####[facility] LABORATORYCLIA [id number] [place] [address] [place] Magnesium SerPl-mCncon 10-22 Magnesium [Mass/Vol] 1.7 mg/dL Normal 1.6-2.6 [facility] Comment on above: Order Comment: Speci men Type: BLOOD SPECIMENOrdering Facility: [facility] Address: [address] [place], [place] [address] [address] Performed By: #### 2 157-6, 84345-7, 69871-6 ####[facility] LABORATORYCLIA [id number] [place] [address] [place] NURSING PROGon 10-23-2023 NURSING PROG [facility] THERAPY NTon 10-23-2023 THERAPY NT [facility] THERAPY NT [facility] Basic metabolic 2000 panelon 10-22-2023 Anion gap [Moles/Vol] 7 mmol/L Normal 5-16 [facility] Comment on above: Order Comment: Speci men Type: BLOOD SPECIMENOrdering Facility: [facility] Address: [address] [place] [address] Performed By: #### 2 4321-2, 2157-6 ####[facility] LABORATORYCLIA [id number] [place] [address] [place] Calcium [Mass/Vol] 10.4 mg/dL Normal 8.5-10.5 [facility] Comment on above: Order Comment: Speci men Type: BLOOD SPECIMENOrdering Facility: [facility] Address: [address] [place] [address] Performed By: #### 2 4321-2, 2156-08 ####[facility] LABORATORYCLIA [id number] [place] [address] [place] Chloride [Moles/Vol] 103 mmol/L Normal 98-107 [facility] Comment on above: Order Comment: Speci men Type: BLOOD SPECIMENOrdering Facility: [facility] Address: [address] [place] [address] Performed By: #### 2 432-2, 2156-08 ####[facility] LABORATORYCLIA [id number] [place] [id number] [place] CO2 [Moles/Vol] 28 mmol/L Normal 21-32 [facility] Comment on above: Order Comment: Speci men Type: BLOOD SPECIMENOrdering Facility: [facility] Address: [address] [place] [address] Performed By: #### 2 43203-11, 2156-08 ####[facility] LABORATORYCLIA [id number] [place] [address] [place] Creatinine [Mass/Vol] 1.16 mg/dL High 0.51-0.95 [facility] Comment on above: Order Comment: Speci men Type: BLOOD SPECIMENOrdering Facility: [facility] Address: [address] [place] [address] Result Comment: Linn ents receiving either N-Acetylcysteine (NAC) or Metamizole prior to venipuncture, may have falsely depressed results. Performed By: #### 2 432-2, 2156-08 ####[facility] LABORATORYCLIA [id number] [place] [address] [place] Creatinine and Glomerular filtration rate.predicted panel (S/P/Bld) 47 mL/min/1.73m??? Low >=60 [facility] Comment on above: Order Comment: Speci men Type: BLOOD SPECIMENOrdering Facility: [facility] Address: [address] [place] [address] Result Comment: Esme mated Glomerular Filtration Rate [...] reflect actual GFR. Performed By: #### 2 4321-, 2156-08 ####[facility] LABORATORYCLIA [id number] [place] [id number] [place] Glucose [Mass/Vol] 85 mg/dL Normal 70-100 [facility] Comment on above: Order Comment: Brady smith Type: BLOOD SPECIMENOrdering Facility: [facility] Address: [address] [place] [address] Result Comment: The [place] Diabetes Association (ADA) provides guidance for cutoff [...] Standards of Medical Care in Diabetes 2016, [place] [employer]. Diabetes Care. 2016.39(Suppl 1).Results may be falsely elevated after the administration of Sulfapyridine.Results may be falsely depressed after the administration of Sulfasalazine. Performed By: #### 2 43203-11, 2156-08 ####[facility] LABORATORYCLIA [id number] [place] [id number] [place] Potassium [Moles/Vol] 3.6 mmol/L Normal 3.5-5.1 [facility] Comment on above: Order Comment: Brady smith Type: BLOOD SPECIMENOrdering Facility: [facility] Address: [address] [place] [id number] Performed By: #### 2 432-, 2156-08 ####[facility] LABORATORYCLIA [id number] [place] [address] [place] Sodium [Moles/Vol] 138 mmol/L Normal 136-145 [facility] Comment on above: Order Comment: Speci men Type: BLOOD SPECIMENOrdering Facility: [facility] Address: [address] [place], [place] [address] Performed By: #### 2 4321-2, 2156-08 ####[facility] LABORATORYCLIA [id number] [place] [address] [place] Urea nitrogen [Mass/Vol] 20 mg/dL Normal 7-26 [facility] Comment on above: Order Comment: Speci men Type: BLOOD SPECIMENOrdering Facility: [facility] Address: [address] [place] [address] Performed By: #### 2 4321-2, 2156-08 ####[facility] LABORATORYCLIA [id number] [place] [address] [place] CASE MGT INIT ASSESon 2023 CASE MGT INIT ASSES Normal [facility] CK SerPl-cCncon 10-22-2023 CK [Catalytic activity/Vol] 251 U/L High 28-152 [facility] Comment on above: Order Comment: Speci men Type: BLOOD SPECIMENOrdering Facility: [facility] Address: [address] [place] [address] Performed By: #### 2 4321-2, 2156-08 ####[facility] LABORATORYCLIA [id number] [place] [address] [place] THERAPY NTon 10-22-2023 THERAPY NT Normal [facility] Basic metabolic 2000 panelon 10-21-2023 Anion gap [Moles/Vol] 8 mmol/L Normal 5-16 [facility] Comment on above: Order Comment: Speci men Type: BLOOD SPECIMENOrdering Facility: [facility] Address: [address] [place] [address] Performed By: #### 2 4321-2, 2156-6, 63808-4, 44695-0 ####[facility] LABORATORYCLIA [id number] [place] [id number] [place] Calcium [Mass/Vol] 11.4 mg/dL High 8.5-10.5 [facility] Comment on above: Order Comment: Speci men Type: BLOOD SPECIMENOrdering Facility: [facility] Address: [address] [place] [address] Performed By: #### 2 4321-2, 2157-6, 49428-4, 25717-6 ####[facility] LABORATORYCLIA [id number] [place] [id number] [place] Chloride [Moles/Vol] 96 mmol/L Low 98-107 [facility] Comment on above: Order Comment: Speci men Type: BLOOD SPECIMENOrdering Facility: [facility] Address: [address] [place] [address] Performed By: #### 2 4321-2, 7-6, 62512-7, ####[facility] LABORATORYCLIA [id number] [place] [id number] [place] CO2 [Moles/Vol] 32 mmol/L Normal 21-32 [facility] Comment on above: Order Comment: Speci men Type: BLOOD SPECIMENOrdering Facility: [facility] Address: [address] [place] [address] Performed By: #### 2 4321-2, 7-6, 18653-7, 43033-4 ####[facility] LABORATORYCLIA [id number] [place] [id number] [place] Creatinine [Mass/Vol] 1.52 mg/dL High 0.51-0.95 [facility] Comment on above: Order Comment: Speci men Type: BLOOD SPECIMENOrdering Facility: [facility] Address: [address] [place] [address] Result Comment: Linn ents receiving either N-Acetylcysteine (NAC) or Metamizole prior to venipuncture, may have falsely depressed results. Performed By: #### 2 4321-2, 2157-6, 37788-4, ####[facility] LABORATORYCLIA [id number] [place] [id number] [place] Creatinine and Glomerular filtration rate.predicted panel (S/P/Bld) 34 mL/min/1.73m??? Low >=60 [facility] Comment on above: Order Comment: Brady smith Type: BLOOD SPECIMENOrdering Facility: [facility] Address: [address] [place] [address] Result Comment: Esme mated Glomerular Filtration Rate [...] GFR. Performed By: #### 2 4321-2, 2157-6, 05787-9, 82980-7 ####[facility] LABORATORYCLIA [id number] [place] [id number] [place] Glucose [Mass/Vol] 102 mg/dL High 70-100 [facility] Comment on above: Order Comment: Brady smith Type: BLOOD SPECIMENOrdering Facility: [facility] Address: [address] [place] [address] Result Comment: The [place] Diabetes Association (ADA) provides guidance for cutoff [...] Standards of Medical Care in Diabetes 2016, [place] [employer]. Diabetes Care. 2016.39(Suppl 1).Results may be falsely elevated after the administration of Sulfapyridine.Results may be falsely depressed after the administration of Sulfasalazine. Performed By: #### 2 4321-2, 2156-08, 23281-8, ####[facility] LABORATORYCLIA [id number] [place] [id number] [place] Potassium [Moles/Vol] 4.3 mmol/L Normal 3.5-5.1 [facility] Comment on above: Order Comment: Speci men Type: BLOOD SPECIMENOrdering Facility: [facility] Address: [address] [place] [address] Performed By: #### 2 4321-2, 2156-08, 08192-9, ####[facility] LABORATORYCLIA [id number] [place] [id number] [place] Sodium [Moles/Vol] 136 mmol/L Normal 136-145 [facility] Comment on above: Order Comment: Speci men Type: BLOOD SPECIMENOrdering Facility: [facility] Address: [address] [place] [address] Performed By: #### 2 4321-2, 2156-08, 07300-8, ####[facility] LABORATORYCLIA [id number] [place] [id number] [place] Urea nitrogen [Mass/Vol] 22 mg/dL Normal 7-26 [facility] Comment on above: Order Comment: Speci men Type: BLOOD SPECIMENOrdering Facility: [facility] Address: [address] [place] [address] Performed By: #### 2 4321-2, 6, 75628-8, 46237-0 ####[facility] LABORATORYCLIA [id number] [place] [id number] [place] CBC W Auto Differential pane l (Bld)on 10-21-2023 Basophils (Bld) [#/Vol] 10*3/uL Normal <0.11 [facility] Comment on above: Order Comment: Speci men Type: BLOOD SPECIMENOrdering Facility: [facility] Address: [address] [place] [address] Performed By: #### 5 7021-8 ####[facility] LABORATORYCLIA [id number] [place] [address] [place] Basophils/100 WBC (Bld) 0.1 % Normal [facility] Comment on above: Order Comment: Speci men Type: BLOOD SPECIMENOrdering Facility: [facility] Address: [address] [place] [address] Performed By: #### 5 7021-8 ####[facility] LABORATORYCLIA [id number] [place] [address] [place] Differential cell count method Nom (Bld) Auto Normal [facility] Comment on above: Order Comment: Speci men Type: BLOOD SPECIMENOrdering Facility: [facility] Address: [address] [place] [address] Performed By: #### 5 7021-8 ####[facility] LABORATORYCLIA [id number] [place] [address] [place] Eosinophils (Bld) [#/Vol] 0.06 10*3/uL Normal <0.46 [facility] Comment on above: Order Comment: Speci men Type: BLOOD SPECIMENOrdering Facility: [facility] Address: [address] [place] [address] Performed By: #### 5 7021-8 ####[facility] LABORATORYCLIA [id number] [address] [place] Eosinophils/100 WBC (Bld) 0.4 % Normal [facility] Comment on above: Order Comment: Speci men Type: BLOOD SPECIMENOrdering Facility: [facility] Address: [address] [place] [address] Performed By: #### 5 7021-8 ####[facility] LABORATORYCLIA [id number] [address] [place] Erythrocyte distribution width (RBC) [Ratio] 16.1 % High 11.5-15.0 [facility] Comment on above: Order Comment: Speci men Type: BLOOD SPECIMENOrdering Facility: [facility] Address: [address] [place] [address] Performed By: #### 5 7021-8 ####[facility] LABORATORYCLIA [id number] [place] [id number] [place] Hematocrit (Bld) [Volume fraction] 41.4 % Normal 36.0-46.0 [facility] Comment on above: Order Comment: Speci men Type: BLOOD SPECIMENOrdering Facility: [facility] Address: [address] [place] [address] Performed By: #### 5 7021-8 ####[facility] LABORATORYCLIA [id number] [place] [address] [place] Hemoglobin (Bld) [Mass/Vol] 13.9 g/dL Normal 11.5-15.5 [facility] Comment on above: Order Comment: Speci men Type: BLOOD SPECIMENOrdering Facility: [facility] Address: [address] [place] [address] Performed By: #### 5 7021-8 ####[facility] LABORATORYCLIA [id number] [place] [address] [place] Immature granulocytes (Bld) [#/Vol] 0.05 10*3/uL Normal <0.10 [facility] Comment on above: Order Comment: Speci men Type: BLOOD SPECIMENOrdering Facility: [facility] Address: [address] [place] [address] Performed By: #### 5 7021-8 ####[facility] LABORATORYCLIA [id number] [place] [address] [place] Immature granulocytes/100 WBC (Bld) 0.4 % Normal [facility] Comment on above: Order Comment: Speci men Type: BLOOD SPECIMENOrdering Facility: [facility] Address: [address] [place] [address] Performed By: #### 5 7021-8 ####[facility] LABORATORYCLIA [id number] [place] [id number] [place] Lymphocytes (Bld) [#/Vol] 1.52 10*3/uL Normal 1.00-4.00 [facility] Comment on above: Order Comment: Speci men Type: BLOOD SPECIMENOrdering Facility: [facility] Address: [address] [place] [address] Performed By: #### 5 7021-8 ####[facility] LABORATORYCLIA [id number] [address] [place] Lymphocytes/100 WBC (Bld) 10.9 % Normal [facility] Comment on above: Order Comment: Speci men Type: BLOOD SPECIMENOrdering Facility: [facility] Address: [address] [place] [address] Performed By: #### 5 7021-8 ####[facility] LABORATORYCLIA [id number] [place] [address] [place] MCH (RBC) [Entitic mass] 27.6 pg Normal 26.0-34.0 [facility] Comment on above: Order Comment: Speci men Type: BLOOD SPECIMENOrdering Facility: [facility] Address: [address] [place] [address] Performed By: #### 5 7021-8 ####[facility] LABORATORYCLIA [id number] [place] [address] [place] MCHC (RBC) [Mass/Vol] 33.6 g/dL Normal 30.5-36.0 [facility] Comment on above: Order Comment: Speci men Type: BLOOD SPECIMENOrdering Facility: [facility] Address: [address] [place] [address] Performed By: #### 5 7021-8 ####[facility] LABORATORYCLIA [id number] [place] [address] [place] MCV (RBC) [Entitic vol] 82.1 fL Normal 80.0-100.0 [facility] Comment on above: Order Comment: Speci men Type: BLOOD SPECIMENOrdering Facility: [facility] Address: [address] [place] [address] Performed By: #### 5 7021-8 ####[facility] LABORATORYCLIA [id number] [place] [address] [place] Monocytes (Bld) [#/Vol] 1.66 10*3/uL High <0.87 [facility] Comment on above: Order Comment: Speci men Type: BLOOD SPECIMENOrdering Facility: [facility] Address: [address] [place] [id number] Performed By: #### 5 7021-8 ####[facility] LABORATORYCLIA [id number] [place] [id number] [place] Monocytes/100 WBC (Bld) 11.9 % Normal [facility] Comment on above: Order Comment: Speci men Type: BLOOD SPECIMENOrdering Facility: [facility] Address: [address] [place] [address] Performed By: #### 5 7021-8 ####[facility] LABORATORYCLIA [id number] [place] [address] [place] Neutrophils (Bld) [#/Vol] 10.67 10*3/uL High 1.45-7.50 [facility] Comment on above: Order Comment: Speci men Type: BLOOD SPECIMENOrdering Facility: [facility] Address: [address] [place] [address] Performed By: #### 5 7021-8 ####[facility] LABORATORYCLIA [id number] [place] [address] [place] Neutrophils/100 WBC (Bld) 76.3 % Normal [facility] Comment on above: Order Comment: Speci men Type: BLOOD SPECIMENOrdering Facility: [facility] Address: [address] [place] [address] Performed By: #### 5 7021-8 ####[facility] LABORATORYCLIA [id number] [place] [id number] [place] Nucleated RBC (Bld) [#/Vol] 10*3/uL Normal <0.01 [facility] Comment on above: Order Comment: Speci men Type: BLOOD SPECIMENOrdering Facility: [facility] Address: [address] [place] [address] Performed By: #### 5 7021-8 ####[facility] LABORATORYCLIA [id number] [place] [address] [place] Nucleated RBC/100 WBC (Bld) [Ratio] 0.0 /100 WBC Normal [facility] Comment on above: Order Comment: Speci men Type: BLOOD SPECIMENOrdering Facility: [facility] Address: [address] [place] [address] Performed By: #### 5 7021-8 ####[facility] LABORATORYCLIA [id number] [place] [id number] [place] Platelet mean volume (Bld) [Entitic vol] 9.4 fL Normal 9.0-12.7 [facility] Comment on above: Order Comment: Speci men Type: BLOOD SPECIMENOrdering Facility: [facility] Address: [address] [place] [address] Performed By: #### 5 7021-8 ####[facility] LABORATORYCLIA [id number] [place] [id number] [place] Platelets (Bld) [#/Vol] 142 10*3/uL Low 150-400 [facility] Comment on above: Order Comment: Speci men Type: BLOOD SPECIMENOrdering Facility: [facility] Address: [address] [place] [address] Performed By: #### 5 7021-8 ####[facility] LABORATORYCLIA [id number] [place] [id number] [place] RBC (Bld) [#/Vol] 5.04 10*6/uL Normal 3.90-5.20 [facility] Comment on above: Order Comment: Speci men Type: BLOOD SPECIMENOrdering Facility: [facility] Address: [address] [place] [address] Performed By: #### 5 7021-8 ####[facility] LABORATORYCLIA [id number] [place] [id number] [place] WBC (Bld) [#/Vol] 13.97 10*3/uL High 3.70-11.00 [facility] Comment on above: Order Comment: Speci men Type: BLOOD SPECIMENOrdering Facility: [facility] Address: [address] [place], [place] [address] Performed By: #### 5 7021-8 ####[facility] LABORATORYCLIA [id number] [place] [id number] [facility] [place] CK SerPl-cCncon 10-21-2023 CK [Catalytic activity/Vol] 673 U/L High 28-152 [facility] Comment on above: Order Comment: Speci men Type: BLOOD SPECIMENOrdering Facility: [facility] Address: [address] [place] [address] Performed By: #### 2 4321-2, 2157-6, 92007-8, 79888-7 ####[facility] LABORATORYCLIA [id number] [address] [place] [address] BRAIN WO IVCONon 10-21-[address] BRAIN WO IVCON Normal [facility] CT CERVICAL SPINE WO IVCONon 10-21-2023 CT CERVICAL SPINE WO IVCON Normal [facility] ECG COMPLETEon 10-21-2023 ECG COMPLETE Normal [facility] ED PROV NOTEon 10-21-2023 ED PROV NOTE Normal [facility] HIGH SENSITIVITY TROPONIN Io n 10-21-2023 Tropinin I.cardiac panel High sensitivity method 14.3 pg/mL Normal 0.0-34.0 [facility] Comment on above: Order Comment: Speci men Type: BLOOD SPECIMENOrdering Facility: [facility] Address: [address] [place] [address] Performed By: #### H STROP ####[facility] LABORATORYCLIA [id number] [place] [id number] [facility] [place] HISTORY PHYSICALon HISTORY PHYSICAL Normal [facility] Hepatic function 2000 panelo n 10-21-2023 Albumin [Mass/Vol] 3.5 g/dL Normal 3.2-5.0 [facility] Comment on above: Order Comment: Speci men Type: BLOOD SPECIMENOrdering Facility: [facility] Address: [address] [place] [address] Performed By: #### 2 4321-2, 2156-6, 98140-1, ####[facility] LABORATORYCLIA [id number] [place] [id number] [place] ALP [Catalytic activity/Vol] 96 U/L Normal 45-117 [facility] Comment on above: Order Comment: Speci men Type: BLOOD SPECIMENOrdering Facility: [facility] Address: [address] [place] [address] Performed By: #### 2 4321-2, 2156-08, 32941-4, ####[facility] LABORATORYCLIA [id number] [place] [id number] [place] ALT [Catalytic activity/Vol] 19 U/L Normal 13-61 [facility] Comment on above: Order Comment: Speci men Type: BLOOD SPECIMENOrdering Facility: [facility] Address: [address] [place] [address] Result Comment: Resu lts may be falsely depressed after the administration of Sulfasalazine and/or Sulfapyridine. Performed By: #### 2 4321-2, 2156-6, 19545-4, ####[facility] LABORATORYCLIA [id number] [place] [id number] [place] AST [Catalytic activity/Vol] 40 U/L High 8-34 [facility] Comment on above: Order Comment: Speci men Type: BLOOD SPECIMENOrdering Facility: [facility] Address: [address] [place] [address] Result Comment: Resu lts may be falsely depressed after the administration of Sulfasalazine and/or Sulfapyridine. Performed By: #### 2 4321-2, 2156-6, 75316-6, ####[facility] LABORATORYCLIA [id number] [place] [id number] [place] Bilirubin [Mass/Vol] 1.7 mg/dL High 0.2-1.0 [facility] Comment on above: Order Comment: Speci men Type: BLOOD SPECIMENOrdering Facility: [facility] Address: [address] [place] [address] [place] [address] Performed By: #### 2 4321-2, 2157-6, 37949-4, 03732-0 ####[facility] LABORATORYCLIA [id number] [place] [id number] [place] Bilirubin.conjugated [Mass/Vol] 0.5 mg/dL High 0.0-0.4 [facility] Comment on above: Order Comment: Speci men Type: BLOOD SPECIMENOrdering Facility: [facility] Address: [address] [place], [place] [address] Performed By: #### 2 4321-2, 2156-6, 92418-1, 34821-5 ####[facility] LABORATORYCLIA [id number] [place] [id number] [place] Protein [Mass/Vol] 7.2 g/dL Normal 6.0-8.5 [facility] Comment on above: Order Comment: Speci men Type: BLOOD SPECIMENOrdering Facility: [facility] Address: [address] [place] [address] Performed By: #### 2 4321-2, 215-6, 75066-6, 70534-3 ####[facility] LABORATORYCLIA [id number] [place] [id number] [place] Magnesium SerPl-mCncon 10-20 Magnesium [Mass/Vol] 1.4 mg/dL Low 1.6-2.6 [facility] Comment on above: Order Comment: Speci men Type: BLOOD SPECIMENOrdering Facility: [facility] Address: [address] [place], [place] [address] Performed By: #### 2 4321-2, 2157-6, 48287-7, 34691-7 ####[facility] LABORATORYCLIA [id number] [place] [id number] [place] Urinalysis complete pnl Uron 10-21-2023 Urinalysis complete panel (U) Normal [facility] Comment on above: Order Comment: Speci men Type: URINE SPECIMENOrdering Facility: [facility] Address: [address] [place], [place] [address], [place] [address] Performed By: #### 2 4356-8 ####[facility] LABORATORYCLIA [id number] [place] [id number] [place] XR PELVIS 1V APon 10-21-2023 XR PELVIS 1V AP Normal [facility] CASE MANAGEMon 09-22-2023 CASE MANAGEM Normal [facility] CASE MANAGEM Normal [facility] CASE MANAGEM Normal [facility] CNDSon 09-22-2023 CNDS Normal [facility] NUTRITIONon 09-22-2023 NUTRITION Normal [facility] THERAPY NTon 09-22-2023 THERAPY NT [facility] THERAPY NT [facility] Basic metabolic 2000 panelon 09-21-2023 Anion gap [Moles/Vol] 4 mmol/L Low 5-16 [facility] Comment on above: Order Comment: Speci men Type: BLOOD SPECIMENOrdering Facility: [facility] Address: [facility] [place] [address] Performed By: #### 2 4321-2, ####[facility] LABORATORYCLIA [id number] [place] [id number] [place] Calcium [Mass/Vol] 10.3 mg/dL Normal 8.5-10.5 [facility] Comment on above: Order Comment: Speci men Type: BLOOD SPECIMENOrdering Facility: [facility] Address: [address] [place] [address] Performed By: #### 2 4321-2, ####[facility] LABORATORYCLIA [id number] [place] [id number] [place] Chloride [Moles/Vol] 96 mmol/L Low 98-107 [facility] Comment on above: Order Comment: Speci men Type: BLOOD SPECIMENOrdering Facility: [facility] Address: [address] [place] [address] Performed By: #### 2 4321-2, ####[facility] LABORATORYCLIA [id number] [place] [id number] [place] CO2 [Moles/Vol] 32 mmol/L Normal 21-32 [facility] Comment on above: Order Comment: Speci luis Type: BLOOD SPECIMENOrdering Facility: [facility] Address: [address] [place] [address] Performed By: #### 2 4321-2, ####[facility] LABORATORYCLIA [id number] [place] [id number] [place] Creatinine [Mass/Vol] 0.71 mg/dL Normal 0.51-0.95 [facility] Comment on above: Order Comment: Speci men Type: BLOOD SPECIMENOrdering Facility: [facility] Address: [address] [place] [address] Result Comment: Linn ents receiving either N-Acetylcysteine (NAC) or Metamizole prior to venipuncture, may have falsely depressed results. Performed By: #### 2 432-, ####[facility] LABORATORYCLIA [id number] [address] Creatinine and Glomerular filtration rate.predicted panel (S/P/Bld) 84 mL/min/1.73m??? Normal >=60 [facility] Comment on above: Order Comment: Brady smith Type: BLOOD SPECIMENOrdering Facility: [facility] Address: [address] [place] [address] Result Comment: Esme mated Glomerular Filtration Rate [...] actual GFR. Performed By: #### 2 4321-2, ####[facility] LABORATORYCLIA [id number] [place] [id number] [place] Glucose [Mass/Vol] 83 mg/dL Normal 70-100 [facility] Comment on above: Order Comment: Jayyi men Type: BLOOD SPECIMENOrdering Facility: [facility] Address: [address] [place] [address] Result Comment: The [place] [employer] (ADA) provides guidance for cutoff [...] Standards of Medical Care in Diabetes 2016, [place] [employer]. Diabetes Care. 2016.39(Suppl 1).Results may be falsely elevated after the administration of Sulfapyridine.Results may be falsely depressed after the administration of Sulfasalazine. Performed By: #### 2 432-, ####[facility] LABORATORYCLIA [id number] [place] [address] [place] Potassium [Moles/Vol] 3.9 mmol/L Normal 3.5-5.1 [facility] Comment on above: Order Comment: Speci men Type: BLOOD SPECIMENOrdering Facility: [facility] Address: [address] [place] [address] Performed By: #### 2 43203-11, ####[facility] LABORATORYCLIA [id number] [place] [id number] [place] Sodium [Moles/Vol] 132 mmol/L Low 136-145 [facility] Comment on above: Order Comment: Speci men Type: BLOOD SPECIMENOrdering Facility: [facility] Address: [address] [place] [address] Performed By: #### 2 4320-04, ####[facility] LABORATORYCLIA [id number] [place] [id number] [place] Urea nitrogen [Mass/Vol] 7 mg/dL Normal 7-26 [facility] Comment on above: Order Comment: Speci men Type: BLOOD SPECIMENOrdering Facility: [facility] Address: [address] [place] [address] Performed By: #### 2 4321-2, ####[facility] LABORATORYCLIA [id number] [place] [id number] [place] Magnesium SerPl-mCncon 09-20 Magnesium [Mass/Vol] 1.9 mg/dL Normal 1.6-2.6 [facility] Comment on above: Order Comment: Speci men Type: BLOOD SPECIMENOrdering Facility: [facility] Address: [address] [place] [id number] Performed By: #### 2 4321-2, ####[facility] LABORATORYCLIA [id number] [place] [id number] [place] Basic metabolic 2000 panelon 09-20-2023 Anion gap [Moles/Vol] 4 mmol/L Low 5-16 [facility] Comment on above: Order Comment: Speci men Type: BLOOD SPECIMENOrdering Facility: [facility] Address: [address] [place] [id number] Performed By: #### 2 432-2, ####[facility] LABORATORYCLIA [id number] [place] [id number] [place] Calcium [Mass/Vol] 10.3 mg/dL Normal 8.5-10.5 [facility] Comment on above: Order Comment: Speci men Type: BLOOD SPECIMENOrdering Facility: [facility] Address: [address] [place] [address] Performed By: #### 2 4321-2, ####[facility] LABORATORYCLIA [id number] [place] [id number] [place] Chloride [Moles/Vol] 95 mmol/L Low 98-107 [facility] Comment on above: Order Comment: Speci men Type: BLOOD SPECIMENOrdering Facility: [facility] Address: [address] [place] [id number] Performed By: #### 2 4321-2, ####[facility] LABORATORYCLIA [id number] [place] [address] [place] CO2 [Moles/Vol] 31 mmol/L Normal 21-32 [facility] Comment on above: Order Comment: Speci men Type: BLOOD SPECIMENOrdering Facility: [facility] Address: [address] [place] [address] Performed By: #### 2 4321-2, ####[facility] LABORATORYCLIA [id number] [place] [address] [place] Creatinine [Mass/Vol] 0.76 mg/dL Normal 0.51-0.95 [facility] Comment on above: Order Comment: Speci men Type: BLOOD SPECIMENOrdering Facility: [facility] Address: [address] [place] [address] Result Comment: Linn ents receiving either N-Acetylcysteine (NAC) or Metamizole prior to venipuncture, may have falsely depressed results. Performed By: #### 2 43203-11, ####[facility] LABORATORYCLIA [id number] [address] Creatinine and Glomerular filtration rate.predicted panel (S/P/Bld) 77 mL/min/1.73m??? Normal >=60 [facility] Comment on above: Order Comment: Speci men Type: BLOOD SPECIMENOrdering Facility: [facility] Address: [address] [place] [address] Result Comment: Esme mated Glomerular Filtration Rate [...] actual GFR. Performed By: #### 2 4321-2, ####[facility] LABORATORYCLIA [id number] [place] [id number] [place] Glucose [Mass/Vol] 91 mg/dL Normal 70-100 [facility] Comment on above: Order Comment: Brady smith Type: BLOOD SPECIMENOrdering Facility: [facility] Address: [address] [place] [phone] Result Comment: The [place] Diabetes [employer] (ADA) provides guidance for cutoff [...] Standards of Medical Care in Diabetes 2016, [place] [employer]. Diabetes Care. 2016.39(Suppl 1).Results may be falsely elevated after the administration of Sulfapyridine.Results may be falsely depressed after the administration of Sulfasalazine. Performed By: #### 2 432- ####[facility] LABORATORYCLIA [id number] [place] [address] [place] Potassium [Moles/Vol] 3.9 mmol/L Normal 3.5-5.1 [facility] Comment on above: Order Comment: Brady smith Type: BLOOD SPECIMENOrdering Facility: [facility] Address: [address] [place], [place] [address] Performed By: #### 2 432-, ####[facility] LABORATORYCLIA [id number] [place] [address] [place] Sodium [Moles/Vol] 130 mmol/L Low 136-145 [facility] Comment on above: Order Comment: Brady smith Type: BLOOD SPECIMENOrdering Facility: [facility] Address: [address] [place] [address] Performed By: #### 2 432-, ####[facility] LABORATORYCLIA [id number] [place] [id number] [place] Urea nitrogen [Mass/Vol] 9 mg/dL Normal 7-26 [facility] Comment on above: Order Comment: Speci men Type: BLOOD SPECIMENOrdering Facility: [facility] Address: [address] [place] [address] Performed By: #### 2 4321-2, 42707-7 ####[facility] LABORATORYCLIA [id number] [place] [id number] [place] CBC W Auto Differential pane l (Bld)on 09-20-2023 Basophils (Bld) [#/Vol] 10*3/uL Normal <0.11 [facility] Comment on above: Order Comment: Speci men Type: BLOOD SPECIMENOrdering Facility: [facility] Address: [address] [place] [address] Performed By: #### 5 7021-8 ####[facility] LABORATORYCLIA [id number] [place] [address] [place] Basophils/100 WBC (Bld) 0.3 % Normal [facility] Comment on above: Order Comment: Speci men Type: BLOOD SPECIMENOrdering Facility: [facility] Address: [address] [place] [address] Performed By: #### 5 7021-8 ####[facility] LABORATORYCLIA [id number] [place] [address] [place] Differential cell count method Nom (Bld) Auto Normal [facility] Comment on above: Order Comment: Speci men Type: BLOOD SPECIMENOrdering Facility: [facility] Address: [address] [place] [address] Performed By: #### 5 7021-8 ####[facility] LABORATORYCLIA [id number] [place] [id number] [place] Eosinophils (Bld) [#/Vol] 0.30 10*3/uL Normal <0.46 [facility] Comment on above: Order Comment: Speci men Type: BLOOD SPECIMENOrdering Facility: [facility] Address: [address] [place] [address] Performed By: #### 5 7021-8 ####[facility] LABORATORYCLIA [id number] [place] [address] [place] Eosinophils/100 WBC (Bld) 4.5 % Normal [facility] Comment on above: Order Comment: Speci men Type: BLOOD SPECIMENOrdering Facility: [facility] Address: [address] [place] [address] Performed By: #### 5 7021-8 ####[facility] LABORATORYCLIA [id number] [place] [address] [place] Erythrocyte distribution width (RBC) [Ratio] 13.2 % Normal 11.5-15.0 [facility] Comment on above: Order Comment: Speci men Type: BLOOD SPECIMENOrdering Facility: [facility] Address: [address] [place] [address] Performed By: #### 5 7021-8 ####[facility] LABORATORYCLIA [id number] [place] [address] [place] Hematocrit (Bld) [Volume fraction] 38.0 % Normal 36.0-46.0 [facility] Comment on above: Order Comment: Speci men Type: BLOOD SPECIMENOrdering Facility: [facility] Address: [address] [place] [address] Performed By: #### 5 7021-8 ####[facility] LABORATORYCLIA [id number] [place] [address] [place] Hemoglobin (Bld) [Mass/Vol] 12.6 g/dL Normal 11.5-15.5 [facility] Comment on above: Order Comment: Speci men Type: BLOOD SPECIMENOrdering Facility: [facility] Address: [address] [place] [address] Performed By: #### 5 7021-8 ####[facility] LABORATORYCLIA [id number] [place] [address] [place] Immature granulocytes (Bld) [#/Vol] 10*3/uL Normal <0.10 [facility] Comment on above: Order Comment: Speci men Type: BLOOD SPECIMENOrdering Facility: [facility] Address: [address] [place] [address] Performed By: #### 5 7021-8 ####[facility] LABORATORYCLIA [id number] [place] [id number] [place] Immature granulocytes/100 WBC (Bld) 0.3 % Normal [facility] Comment on above: Order Comment: Speci men Type: BLOOD SPECIMENOrdering Facility: [facility] Address: [address] [place] [address] Performed By: #### 5 7021-8 ####[facility] LABORATORYCLIA [id number] [place] [address] [place] Lymphocytes (Bld) [#/Vol] 1.60 10*3/uL Normal 1.00-4.00 [facility] Comment on above: Order Comment: Speci men Type: BLOOD SPECIMENOrdering Facility: [facility] Address: [address] [place] [address] Performed By: #### 5 7021-8 ####[facility] LABORATORYCLIA [id number] [address] [place] Lymphocytes/100 WBC (Bld) 23.9 % Normal [facility] Comment on above: Order Comment: Speci men Type: BLOOD SPECIMENOrdering Facility: [facility] Address: [address] [place] [address] Performed By: #### 5 7021-8 ####[facility] LABORATORYCLIA [id number] [place] [address] [place] MCH (RBC) [Entitic mass] 27.6 pg Normal 26.0-34.0 [facility] Comment on above: Order Comment: Speci men Type: BLOOD SPECIMENOrdering Facility: [facility] Address: [address] [place] [address] Performed By: #### 5 7021-8 ####[facility] LABORATORYCLIA [id number] [place] [id number] [place] MCHC (RBC) [Mass/Vol] 33.2 g/dL Normal 30.5-36.0 [facility] Comment on above: Order Comment: Speci men Type: BLOOD SPECIMENOrdering Facility: [facility] Address: [address] [place] [address] Performed By: #### 5 7021-8 ####[facility] LABORATORYCLIA [id number] [place] [address] [place] MCV (RBC) [Entitic vol] 83.2 fL Normal 80.0-100.0 [facility] Comment on above: Order Comment: Speci men Type: BLOOD SPECIMENOrdering Facility: [facility] Address: [address] [place] [address] Performed By: #### 5 7021-8 ####[facility] LABORATORYCLIA [id number] [place] [address] [place] Monocytes (Bld) [#/Vol] 0.70 10*3/uL Normal <0.87 [facility] Comment on above: Order Comment: Speci men Type: BLOOD SPECIMENOrdering Facility: [facility] Address: [address] [place] [address] Performed By: #### 5 7021-8 ####[facility] LABORATORYCLIA [id number] [address] [place] Monocytes/100 WBC (Bld) 10.4 % Normal [facility] Comment on above: Order Comment: Speci men Type: BLOOD SPECIMENOrdering Facility: [facility] Address: [address] [place] [address] Performed By: #### 5 7021-8 ####[facility] LABORATORYCLIA [id number] [place] [address] [place] Neutrophils (Bld) [#/Vol] 4.06 10*3/uL Normal 1.45-7.50 [facility] Comment on above: Order Comment: Speci men Type: BLOOD SPECIMENOrdering Facility: [facility] Address: [address] [place] [address] Performed By: #### 5 7021-8 ####[facility] LABORATORYCLIA [id number] [place] [address] [place] Neutrophils/100 WBC (Bld) 60.6 % Normal [facility] Comment on above: Order Comment: Speci men Type: BLOOD SPECIMENOrdering Facility: [facility] Address: [address] [place] [address] Performed By: #### 5 7021-8 ####[facility] LABORATORYCLIA [id number] [place] [address] [place] Nucleated RBC (Bld) [#/Vol] 10*3/uL Normal <0.01 [facility] Comment on above: Order Comment: Speci men Type: BLOOD SPECIMENOrdering Facility: [facility] Address: [address] [place] [address] Performed By: #### 5 7021-8 ####[facility] LABORATORYCLIA [id number] [place] [address] [place] Nucleated RBC/100 WBC (Bld) [Ratio] 0.0 /100 WBC Normal [facility] Comment on above: Order Comment: Speci men Type: BLOOD SPECIMENOrdering Facility: [facility] Address: [address] [place] [address] Performed By: #### 5 7021-8 ####[facility] LABORATORYCLIA [id number] [place] [address] [place] Platelet mean volume (Bld) [Entitic vol] 9.9 fL Normal 9.0-12.7 [facility] Comment on above: Order Comment: Speci men Type: BLOOD SPECIMENOrdering Facility: [facility] Address: [address] [place] [address] Performed By: #### 5 7021-8 ####[facility] LABORATORYCLIA [id number] [place] [address] [place] Platelets (Bld) [#/Vol] 108 10*3/uL Low 150-400 [facility] Comment on above: Order Comment: Speci men Type: BLOOD SPECIMENOrdering Facility: [facility] Address: [address] [place] [address] Result Comment: No c lot detected. Performed By: #### 5 7021-8 ####[facility] LABORATORYCLIA [id number] [place] [id number] [facility] [place] RBC (Bld) [#/Vol] 4.57 10*6/uL Normal 3.90-5.20 [facility] Comment on above: Order Comment: Speci men Type: BLOOD SPECIMENOrdering Facility: [facility] Address: [address] [place] [address] Performed By: #### 5 7021-8 ####[facility] LABORATORYCLIA [id number] [place] [id number] [facility] WBC (Bld) [#/Vol] 6.70 10*3/uL Normal 3.70-11.00 [facility] Comment on above: Order Comment: Speci men Type: BLOOD SPECIMENOrdering Facility: [facility] Address: [address] [place], [place] [address] Performed By: #### 5 7021-8 ####[facility] LABORATORYCLIA [id number] [place] [id number] [place] Magnesium SerPl-mCncon 09-19 Magnesium [Mass/Vol] 2.0 mg/dL Normal 1.6-2.6 [facility] Comment on above: Order Comment: Speci men Type: BLOOD SPECIMENOrdering Facility: [facility] Address: [address] [place] [address] Performed By: #### 2 4321-2, 15844-6 ####[facility] LABORATORYCLIA [id number] [place] [id number] [place] NURSING PROGon 09-20-2023 NURSING PROG Normal [facility] Basic metabolic 2000 panelon 09-19-2023 Anion gap [Moles/Vol] mmol/L Low 5-16 [facility] Comment on above: Order Comment: Speci men Type: BLOOD SPECIMENOrdering Facility: [facility] Address: [address] [place] [address] Performed By: #### 2 4321-2, , 3083-03 ####[facility] LABORATORYCLIA [id number] [place] [address] [place] Calcium [Mass/Vol] 10.1 mg/dL Normal 8.5-10.5 [facility] Comment on above: Order Comment: Speci men Type: BLOOD SPECIMENOrdering Facility: [facility] Address: [address] [place] [address] Performed By: #### 2 4321-2, , 3083-03 ####[facility] LABORATORYCLIA [id number] [place] [id number] [place] Chloride [Moles/Vol] 98 mmol/L Normal 98-107 [facility] Comment on above: Order Comment: Speci men Type: BLOOD SPECIMENOrdering Facility: [facility] Address: [address] [place] [address] Performed By: #### 2 432-2, , 3083-03 ####[facility] LABORATORYCLIA [id number] [place] [id number] [place] CO2 [Moles/Vol] 32 mmol/L Normal 21-32 [facility] Comment on above: Order Comment: Speci men Type: BLOOD SPECIMENOrdering Facility: [facility] Address: [address] [place] [address] Performed By: #### 2 4321-2, , 3083-03 ####[facility] LABORATORYCLIA [id number] [place] [id number] [place] Creatinine [Mass/Vol] 0.96 mg/dL High 0.51-0.95 [facility] Comment on above: Order Comment: Speci men Type: BLOOD SPECIMENOrdering Facility: [facility] Address: [address] [place] [address] Result Comment: Linn ents receiving either N-Acetylcysteine (NAC) or Metamizole prior to venipuncture, may have falsely depressed results. Performed By: #### 2 4321-2, , 3083-03 ####[facility] LABORATORYCLIA [id number] [address] [place] Creatinine and Glomerular filtration rate.predicted panel (S/P/Bld) 58 mL/min/1.73m??? Low >=60 [facility] Comment on above: Order Comment: Brady smith Type: BLOOD SPECIMENOrdering Facility: [facility] Address: [address] [place] [address] Result Comment: Seme mated Glomerular Filtration Rate (eGFR) is calculated [...] actual GFR. Performed By: #### 2 4321-2, 31264-6, 3083- ####[facility] LABORATORYCLIA [id number] [place] [address] [place] Glucose [Mass/Vol] 95 mg/dL Normal 70-100 [facility] Comment on above: Order Comment: Brady smith Type: BLOOD SPECIMENOrdering Facility: [facility] Address: [address] [place] [address] Result Comment: The [place] [employer] (ADA) provides guidance for cutoff [...] Standards of Medical Care in Diabetes 2016, [place] [employer]. Diabetes Care. 2016.39(Suppl 1).Results may be falsely elevated after the administration of Sulfapyridine.Results may be falsely depressed after the administration of Sulfasalazine. Performed By: #### 2 4321-2, , 3083- ####[facility] LABORATORYCLIA [id number] [place] [id number] [place] Potassium [Moles/Vol] 3.9 mmol/L Normal 3.5-5.1 [facility] Comment on above: Order Comment: Speci men Type: BLOOD SPECIMENOrdering Facility: [facility] Address: [address] [place] [address] Performed By: #### 2 4321-2, 74894-2, 3083-03 ####[facility] LABORATORYCLIA [id number] [place] [id number] [place] Sodium [Moles/Vol] 132 mmol/L Low 136-145 [facility] Comment on above: Order Comment: Speci men Type: BLOOD SPECIMENOrdering Facility: [facility] Address: [address] [place] [address] Performed By: #### 2 4321-2, , 3083-03 ####[facility] LABORATORYCLIA [id number] [place] [id number] [place] Urea nitrogen [Mass/Vol] 9 mg/dL Normal 7-26 [facility] Comment on above: Order Comment: Speci men Type: BLOOD SPECIMENOrdering Facility: [facility] Address: [address] [place] [address] Performed By: #### 2 4321-2, , 3083-03 ####[facility] LABORATORYCLIA [id number] [place] [id number] [place] CASE MANAGEMon 09-19-2023 CASE MANAGEM Normal [facility] CBC W Auto Differential pane l (Bld)on 09-19-2023 Basophils (Bld) [#/Vol] 10*3/uL Normal <0.11 [facility] Comment on above: Order Comment: Speci men Type: BLOOD SPECIMENOrdering Facility: [facility] Address: [address] [place] [address] Performed By: #### 5 7021-8 ####[facility] LABORATORYCLIA [id number] [address] [place] Basophils/100 WBC (Bld) 0.1 % Normal [facility] Comment on above: Order Comment: Speci men Type: BLOOD SPECIMENOrdering Facility: [facility] Address: [facility] [place] [address] Performed By: #### 5 7021-8 ####[facility] LABORATORYCLIA [id number] [place] [address] [place] [facility] [place] Differential cell count method Nom (Bld) Auto Normal [facility] Comment on above: Order Comment: Speci men Type: BLOOD SPECIMENOrdering Facility: [facility] Address: [address] [place] [address] Performed By: #### 5 7021-8 ####[facility] LABORATORYCLIA [id number] [address] [place] Eosinophils (Bld) [#/Vol] 0.36 10*3/uL Normal <0.46 [facility] Comment on above: Order Comment: Speci men Type: BLOOD SPECIMENOrdering Facility: [facility] Address: [address] [place] [address] Performed By: #### 5 7021-8 ####[facility] LABORATORYCLIA [id number] [address] OF [facility] Eosinophils/100 WBC (Bld) 5.0 % Normal [facility] Comment on above: Order Comment: Speci men Type: BLOOD SPECIMENOrdering Facility: [facility] Address: [address] [place] [address] Performed By: #### 5 7021-8 ####[facility] LABORATORYCLIA [id number] [address] [place] Erythrocyte distribution width (RBC) [Ratio] 13.2 % Normal 11.5-15.0 [facility] Comment on above: Order Comment: Speci men Type: BLOOD SPECIMENOrdering Facility: [facility] Address: [address] [place] [address] Performed By: #### 5 7021-8 ####[facility] LABORATORYCLIA [id number] [place] [address] [place] Hematocrit (Bld) [Volume fraction] 37.8 % Normal 36.0-46.0 [facility] Comment on above: Order Comment: Speci men Type: BLOOD SPECIMENOrdering Facility: [facility] Address: [address] [place] [address] Performed By: #### 5 7021-8 ####[facility] LABORATORYCLIA [id number] [place] [address] [place] Hemoglobin (Bld) [Mass/Vol] 12.5 g/dL Normal 11.5-15.5 [facility] Comment on above: Order Comment: Speci men Type: BLOOD SPECIMENOrdering Facility: [facility] Address: [address] [place] [address] Performed By: #### 5 7021-8 ####[facility] LABORATORYCLIA [id number] [place] [address] [place] Immature granulocytes (Bld) [#/Vol] 0.03 10*3/uL Normal <0.10 [facility] Comment on above: Order Comment: Speci men Type: BLOOD SPECIMENOrdering Facility: [facility] Address: [address] [place] [address] Performed By: #### 5 7021-8 ####[facility] LABORATORYCLIA [id number] [place] [address] [place] Immature granulocytes/100 WBC (Bld) 0.4 % Normal [facility] Comment on above: Order Comment: Speci men Type: BLOOD SPECIMENOrdering Facility: [facility] Address: [address] [place] [address] Performed By: #### 5 7021-8 ####[facility] LABORATORYCLIA [id number] [place] [address] [place] Lymphocytes (Bld) [#/Vol] 1.42 10*3/uL Normal 1.00-4.00 [facility] Comment on above: Order Comment: Speci men Type: BLOOD SPECIMENOrdering Facility: [facility] Address: [address] [place] [address] Performed By: #### 5 7021-8 ####[facility] LABORATORYCLIA [id number] [address] [place] Lymphocytes/100 WBC (Bld) 19.7 % Normal [facility] Comment on above: Order Comment: Speci men Type: BLOOD SPECIMENOrdering Facility: [facility] Address: [address] [place] [address] Performed By: #### 5 7021-8 ####[facility] LABORATORYCLIA [id number] [address] [place] MCH (RBC) [Entitic mass] 27.8 pg Normal 26.0-34.0 [facility] Comment on above: Order Comment: Speci men Type: BLOOD SPECIMENOrdering Facility: [facility] Address: [address] [place] [address] Performed By: #### 5 7021-8 ####[facility] LABORATORYCLIA [id number] [address] [place] MCHC (RBC) [Mass/Vol] 33.1 g/dL Normal 30.5-36.0 [facility] Comment on above: Order Comment: Speci men Type: BLOOD SPECIMENOrdering Facility: [facility] Address: [address] [place] [address] Performed By: #### 5 7021-8 ####[facility] LABORATORYCLIA [id number] [address] [place] MCV (RBC) [Entitic vol] 84.2 fL Normal 80.0-100.0 [facility] Comment on above: Order Comment: Speci men Type: BLOOD SPECIMENOrdering Facility: [facility] Address: [address] [place] [address] Performed By: #### 5 7021-8 ####[facility] LABORATORYCLIA [id number] [address] [place] Monocytes (Bld) [#/Vol] 0.83 10*3/uL Normal <0.87 [facility] Comment on above: Order Comment: Speci men Type: BLOOD SPECIMENOrdering Facility: [facility] Address: [address] [place] [address] Performed By: #### 5 7021-8 ####[facility] LABORATORYCLIA [id number] [place] [id number] [place] Monocytes/100 WBC (Bld) 11.5 % Normal [facility] Comment on above: Order Comment: Speci men Type: BLOOD SPECIMENOrdering Facility: [facility] Address: [address] [place] [address] Performed By: #### 5 7021-8 ####[facility] LABORATORYCLIA [id number] [place] [address] [place] Neutrophils (Bld) [#/Vol] 4.54 10*3/uL Normal 1.45-7.50 [facility] Comment on above: Order Comment: Speci men Type: BLOOD SPECIMENOrdering Facility: [facility] Address: [address] [place] [address] Performed By: #### 5 7021-8 ####[facility] LABORATORYCLIA [id number] [address] [place] Neutrophils/100 WBC (Bld) 63.3 % Normal [facility] Comment on above: Order Comment: Speci men Type: BLOOD SPECIMENOrdering Facility: [facility] Address: [address] [place] [address] Performed By: #### 5 7021-8 ####[facility] LABORATORYCLIA [id number] [place] [address] [place] Nucleated RBC (Bld) [#/Vol] 10*3/uL Normal <0.01 [facility] Comment on above: Order Comment: Speci men Type: BLOOD SPECIMENOrdering Facility: [facility] Address: [address] [place] [address] Performed By: #### 5 7021-8 ####[facility] LABORATORYCLIA [id number] [place] [address] [place] Nucleated RBC/100 WBC (Bld) [Ratio] 0.0 /100 WBC Normal [facility] Comment on above: Order Comment: Speci men Type: BLOOD SPECIMENOrdering Facility: [facility] Address: [address] [place] [address] Performed By: #### 5 7021-8 ####[facility] LABORATORYCLIA [id number] [place] [address] [place] Platelet mean volume (Bld) [Entitic vol] 9.8 fL Normal 9.0-12.7 [facility] Comment on above: Order Comment: Speci men Type: BLOOD SPECIMENOrdering Facility: [facility] Address: [address] [place] [address] Performed By: #### 5 7021-8 ####[facility] LABORATORYCLIA [id number] [place] [address] [place] Platelets (Bld) [#/Vol] 112 10*3/uL Low 150-400 [facility] Comment on above: Order Comment: Speci men Type: BLOOD SPECIMENOrdering Facility: [facility] Address: [address] [place] [address] Result Comment: No c lot detected. Performed By: #### 5 7021-8 ####[facility] LABORATORYCLIA [id number] [place] [address] [place] RBC (Bld) [#/Vol] 4.49 10*6/uL Normal 3.90-5.20 [facility] Comment on above: Order Comment: Speci men Type: BLOOD SPECIMENOrdering Facility: [facility] Address: [address] [place] [address] Performed By: #### 5 7021-8 ####[facility] LABORATORYCLIA [id number] [place] [address] [place] WBC (Bld) [#/Vol] 7.19 10*3/uL Normal 3.70-11.00 [facility] Comment on above: Order Comment: Speci men Type: BLOOD SPECIMENOrdering Facility: [facility] Address: [address] [place], [place] [address] Performed By: #### 5 7021-8 ####[facility] LABORATORYCLIA [id number] [place] [id number] [place] Magnesium [facility] 09-18 Magnesium [Mass/Vol] 1.8 mg/dL Normal 1.6-2.6 [facility] Comment on above: Order Comment: Speci men Type: BLOOD SPECIMENOrdering Facility: [facility] Address: [address] [place], [place] [address] Performed By: #### 2 4321-2, 11120-1, 3083-1 ####[facility] LABORATORYCLIA [id number] [place] [id number] [place] Urate [facility] Urate [Mass/Vol] 6.8 mg/dL High 2.6-6.0 [facility] Comment on above: Order Comment: Speci men Type: BLOOD SPECIMENOrdering Facility: [facility] Address: [address] [place] [address] Result Comment: Linn ents receiving Metamizole prior to venipuncture, may have falsely depressed results. Performed By: #### 2 4321-2, , 3083- ####[facility] LABORATORYCLIA [id number] [place] [id number] [place] Basic metabolic 2000 panelon 09-18-2023 Anion gap [Moles/Vol] 8 mmol/L Normal 5-16 [facility] Comment on above: Order Comment: Speci men Type: BLOOD SPECIMENOrdering Facility: [facility] Address: [address] [place], [place] [id number] Performed By: #### 2 4321-2, ####[facility] LABORATORYCLIA [id number] [place] [id number] [place] Calcium [Mass/Vol] 10.6 mg/dL High 8.5-10.5 [facility] Comment on above: Order Comment: Speci men Type: BLOOD SPECIMENOrdering Facility: [facility] Address: [address] [place], [place] [id number] Performed By: #### 2 4321-2, ####[facility] LABORATORYCLIA [id number] [place] [id number] [place] Chloride [Moles/Vol] 96 mmol/L Low 98-107 [facility] Comment on above: Order Comment: Speci men Type: BLOOD SPECIMENOrdering Facility: [facility] Address: [address] [place] [address] Performed By: #### 2 432-2, ####[facility] LABORATORYCLIA [id number] [place] [id number] [place] [place] CO2 [Moles/Vol] 32 mmol/L Normal 21-32 [facility] Comment on above: Order Comment: Speci men Type: BLOOD SPECIMENOrdering Facility: [facility] Address: [address] [place] [address] Performed By: #### 2 432-2, ####[facility] LABORATORYCLIA [id number] [place] [address] [place] Creatinine [Mass/Vol] 0.70 mg/dL Normal 0.51-0.95 [facility] Comment on above: Order Comment: Speci men Type: BLOOD SPECIMENOrdering Facility: [facility] Address: [address] [place] [address] Result Comment: Linn ents receiving either N-Acetylcysteine (NAC) or Metamizole prior to venipuncture, may have falsely depressed results. Performed By: #### 2 4321-2, ####[facility] LABORATORYCLIA [id number] [place] [id number] [place] Creatinine and Glomerular filtration rate.predicted panel (S/P/Bld) 85 mL/min/1.73m??? Normal >=60 [facility] Comment on above: Order Comment: Speci men Type: BLOOD SPECIMENOrdering Facility: [facility] Address: [address] [place] [address] [place] [address] Result Comment: Esme mated Glomerular Filtration Rate [...] actual GFR. Performed By: #### 2 4321-2, ####[facility] LABORATORYCLIA [id number] [place] [id number] [place] Glucose [Mass/Vol] 84 mg/dL Normal 70-100 [facility] Comment on above: Order Comment: Brady smith Type: BLOOD SPECIMENOrdering Facility: [facility] Address: [address] [place] [address] Result Comment: The [place] Diabetes Association (ADA) provides guidance for cutoff [...] Standards of Medical Care in Diabetes 2016, [place] [employer]. Diabetes Care. 2016.39(Suppl 1).Results may be falsely elevated after the administration of Sulfapyridine.Results may be falsely depressed after the administration of Sulfasalazine. Performed By: #### 2 4321-2, 32759-3 ####[facility] LABORATORYCLIA [id number] [place] [id number] [place] Potassium [Moles/Vol] 3.6 mmol/L Normal 3.5-5.1 [facility] Comment on above: Order Comment: Brady smith Type: BLOOD SPECIMENOrdering Facility: [facility] Address: [address] [place] [id number] Performed By: #### 2 432-2, ####[facility] LABORATORYCLIA [id number] [place] [id number] [place] [facility] Sodium [Moles/Vol] 136 mmol/L Normal 136-145 [facility] Comment on above: Order Comment: Speci men Type: BLOOD SPECIMENOrdering Facility: [facility] Address: [address] [place] [address] Performed By: #### 2 4321-2, ####[facility] LABORATORYCLIA [id number] [address] [place] Urea nitrogen [Mass/Vol] 7 mg/dL Normal 7-26 [facility] Comment on above: Order Comment: Speci men Type: BLOOD SPECIMENOrdering Facility: [facility] Address: [address] [place] [address] Performed By: #### 2 4321-2, ####[facility] LABORATORYCLIA [id number] [address] [place] CBC W Auto Differential pane l (Bld)on 09-18-2023 Basophils (Bld) [#/Vol] 10*3/uL Normal <0.11 [facility] Comment on above: Order Comment: Speci men Type: BLOOD SPECIMENOrdering Facility: [facility] Address: [address] [place] [address] Performed By: #### 5 7021-8 ####[facility] LABORATORYCLIA [id number] [address] [place] Basophils/100 WBC (Bld) 0.3 % Normal [facility] Comment on above: Order Comment: Speci men Type: BLOOD SPECIMENOrdering Facility: [facility] Address: [address] [place] [address] Performed By: #### 5 7021-8 ####[facility] LABORATORYCLIA [id number] [address] STATES [facility] Differential cell count method Nom (Bld) Auto Normal [facility] Comment on above: Order Comment: Speci men Type: BLOOD SPECIMENOrdering Facility: [facility] Address: [address] [place] [address] Performed By: #### 5 7021-8 ####[facility] LABORATORYCLIA [id number] [place] [id number] [place] Eosinophils (Bld) [#/Vol] 0.40 10*3/uL Normal <0.46 [facility] Comment on above: Order Comment: Speci men Type: BLOOD SPECIMENOrdering Facility: [facility] Address: [address] [place] [address] Performed By: #### 5 7021-8 ####[facility] LABORATORYCLIA [id number] [place] [address] [place] Eosinophils/100 WBC (Bld) 6.2 % Normal [facility] Comment on above: Order Comment: Speci men Type: BLOOD SPECIMENOrdering Facility: [facility] Address: [address] [place] [address] Performed By: #### 5 7021-8 ####[facility] LABORATORYCLIA [id number] [place] [address] [place] Erythrocyte distribution width (RBC) [Ratio] 13.2 % Normal 11.5-15.0 [facility] Comment on above: Order Comment: Speci men Type: BLOOD SPECIMENOrdering Facility: [facility] Address: [address] [place] [address] Performed By: #### 5 7021-8 ####[facility] LABORATORYCLIA [id number] [place] [id number] [place] Hematocrit (Bld) [Volume fraction] 39.4 % Normal 36.0-46.0 [facility] Comment on above: Order Comment: Speci men Type: BLOOD SPECIMENOrdering Facility: [facility] Address: [address] [place] [address] Performed By: #### 5 7021-8 ####[facility] LABORATORYCLIA [id number] [place] [address] [place] Hemoglobin (Bld) [Mass/Vol] 13.2 g/dL Normal 11.5-15.5 [facility] Comment on above: Order Comment: Speci men Type: BLOOD SPECIMENOrdering Facility: [facility] Address: [address] [place] [address] Performed By: #### 5 7021-8 ####[facility] LABORATORYCLIA [id number] [place] [address] [place] Immature granulocytes (Bld) [#/Vol] 0.03 10*3/uL Normal <0.10 [facility] Comment on above: Order Comment: Speci men Type: BLOOD SPECIMENOrdering Facility: [facility] Address: [address] [place] [address] Performed By: #### 5 7021-8 ####[facility] LABORATORYCLIA [id number] [place] [address] [place] Immature granulocytes/100 WBC (Bld) 0.5 % Normal [facility] Comment on above: Order Comment: Speci men Type: BLOOD SPECIMENOrdering Facility: [facility] Address: [address] [place] [address] Performed By: #### 5 7021-8 ####[facility] LABORATORYCLIA [id number] [place] [address] [place] Lymphocytes (Bld) [#/Vol] 1.57 10*3/uL Normal 1.00-4.00 [facility] Comment on above: Order Comment: Speci men Type: BLOOD SPECIMENOrdering Facility: [facility] Address: [address] [place] [address] Performed By: #### 5 7021-8 ####[facility] LABORATORYCLIA [id number] [place] [address] [place] Lymphocytes/100 WBC (Bld) 24.5 % Normal [facility] Comment on above: Order Comment: Speci men Type: BLOOD SPECIMENOrdering Facility: [facility] Address: [address] [place] [address] Performed By: #### 5 7021-8 ####[facility] LABORATORYCLIA [id number] [address] [place] MCH (RBC) [Entitic mass] 27.8 pg Normal 26.0-34.0 [facility] Comment on above: Order Comment: Speci men Type: BLOOD SPECIMENOrdering Facility: [facility] Address: [address] [place] [address] Performed By: #### 5 7021-8 ####[facility] LABORATORYCLIA [id number] [address] [place] MCHC (RBC) [Mass/Vol] 33.5 g/dL Normal 30.5-36.0 [facility] Comment on above: Order Comment: Speci men Type: BLOOD SPECIMENOrdering Facility: [facility] Address: [address] [place] [address] Performed By: #### 5 7021-8 ####[facility] LABORATORYCLIA [id number] [address] MCV (RBC) [Entitic vol] 83.1 fL Normal 80.0-100.0 [facility] Comment on above: Order Comment: Speci men Type: BLOOD SPECIMENOrdering Facility: [facility] Address: [address] [place] [address] Performed By: #### 5 7021-8 ####[facility] LABORATORYCLIA [id number] [address] [place] Monocytes (Bld) [#/Vol] 0.74 10*3/uL Normal <0.87 [facility] Comment on above: Order Comment: Speci men Type: BLOOD SPECIMENOrdering Facility: [facility] Address: [address] [place] [address] Performed By: #### 5 7021-8 ####[facility] LABORATORYCLIA [id number] [address] Monocytes/100 WBC (Bld) 11.5 % Normal [facility] Comment on above: Order Comment: Speci men Type: BLOOD SPECIMENOrdering Facility: [facility] Address: [address] [place] [address] Performed By: #### 5 7021-8 ####[facility] LABORATORYCLIA [id number] [place] [address] [place] Neutrophils (Bld) [#/Vol] 3.65 10*3/uL Normal 1.45-7.50 [facility] Comment on above: Order Comment: Speci men Type: BLOOD SPECIMENOrdering Facility: [facility] Address: [address] [place] [address] Performed By: #### 5 7021-8 ####[facility] LABORATORYCLIA [id number] [place] [address] [place] Neutrophils/100 WBC (Bld) 57.0 % Normal [facility] Comment on above: Order Comment: Speci men Type: BLOOD SPECIMENOrdering Facility: [facility] Address: [address] [place] [address] Performed By: #### 5 7021-8 ####[facility] LABORATORYCLIA [id number] [place] [address] [place] Nucleated RBC (Bld) [#/Vol] 10*3/uL Normal <0.01 [facility] Comment on above: Order Comment: Speci men Type: BLOOD SPECIMENOrdering Facility: [facility] Address: [address] [place] [address] Performed By: #### 5 7021-8 ####[facility] LABORATORYCLIA [id number] [place] [address] [place] Nucleated RBC/100 WBC (Bld) [Ratio] 0.0 /100 WBC Normal [facility] Comment on above: Order Comment: Speci men Type: BLOOD SPECIMENOrdering Facility: [facility] Address: [address] [place] [address] Performed By: #### 5 7021-8 ####[facility] LABORATORYCLIA [id number] [place] [address] [place] Platelet mean volume (Bld) [Entitic vol] 10.1 fL Normal 9.0-12.7 [facility] Comment on above: Order Comment: Speci men Type: BLOOD SPECIMENOrdering Facility: [facility] Address: [address] [place] [address] Performed By: #### 5 7021-8 ####[facility] LABORATORYCLIA [id number] [place] [id number] [place] Platelets (Bld) [#/Vol] 117 10*3/uL Low 150-400 [facility] Comment on above: Order Comment: Speci men Type: BLOOD SPECIMENOrdering Facility: [facility] Address: [address] [place] [address] Result Comment: No c lot detected. Performed By: #### 5 7021-8 ####[facility] LABORATORYCLIA [id number] [place] [address] [place] RBC (Bld) [#/Vol] 4.74 10*6/uL Normal 3.90-5.20 [facility] Comment on above: Order Comment: Speci men Type: BLOOD SPECIMENOrdering Facility: [facility] Address: [address] [place] [address] Performed By: #### 5 7021-8 ####[facility] LABORATORYCLIA [id number] [place] [address] [place] WBC (Bld) [#/Vol] 6.41 10*3/uL Normal 3.70-11.00 [facility] Comment on above: Order Comment: Speci men Type: BLOOD SPECIMENOrdering Facility: [facility] Address: [address] [place] [address] Performed By: #### 5 7021-8 ####[facility] LABORATORYCLIA [id number] [place] [id number] [place] Magnesium SerPl-mCncon 09-17 Magnesium [Mass/Vol] 1.9 mg/dL Normal 1.6-2.6 [facility] Comment on above: Order Comment: Speci men Type: BLOOD SPECIMENOrdering Facility: [facility] Address: [address] [place] [address], [place] [address] Performed By: #### 2 4321-2, ####[facility] LABORATORYCLIA [id number] [place] [address] [place] THERAPY NTon 09-18-2023 THERAPY NT Normal [facility] XR CHEST 1V FRONTALon 2023 XR CHEST 1V FRONTAL Normal [facility] Basic metabolic 2000 panelon 09-17-2023 Anion gap [Moles/Vol] 7 mmol/L Normal 5-16 [facility] Comment on above: Order Comment: Speci men Type: BLOOD SPECIMENOrdering Facility: [facility] Address: [address] [place] [address] Performed By: #### 2 4321-2, ####[facility] LABORATORYCLIA [id number] [place] [address] [place] Calcium [Mass/Vol] 10.1 mg/dL Normal 8.5-10.5 [facility] Comment on above: Order Comment: Speci men Type: BLOOD SPECIMENOrdering Facility: [facility] Address: [address] [place] [address] Performed By: #### 2 4321-2, ####[facility] LABORATORYCLIA [id number] [place] [address] [place] Chloride [Moles/Vol] 102 mmol/L Normal 98-107 [facility] Comment on above: Order Comment: Speci men Type: BLOOD SPECIMENOrdering Facility: [facility] Address: [address] [place] [address] Performed By: #### 2 4321-2, ####[facility] LABORATORYCLIA [id number] [place] [address] [place] CO2 [Moles/Vol] 29 mmol/L Normal 21-32 [facility] Comment on above: Order Comment: Speci men Type: BLOOD SPECIMENOrdering Facility: [facility] Address: [address] [place] [address] Performed By: #### 2 4321-2, ####[facility] LABORATORYCLIA [id number] [place] [id number] [place] Creatinine [Mass/Vol] 0.69 mg/dL Normal 0.51-0.95 [facility] Comment on above: Order Comment: Brady smith Type: BLOOD SPECIMENOrdering Facility: [facility] Address: [address] [place] [address] Result Comment: Linn ents receiving either N-Acetylcysteine (NAC) or Metamizole prior to venipuncture, may have falsely depressed results. Performed By: #### 2 43203-11, ####[facility] LABORATORYCLIA [id number] [place] [id number] [facility] Creatinine and Glomerular filtration rate.predicted panel (S/P/Bld) 86 mL/min/1.73m??? Normal >=60 [facility] Comment on above: Order Comment: Brady smith Type: BLOOD SPECIMENOrdering Facility: [facility] Address: [address] [place] [address] Result Comment: Esme mated Glomerular Filtration Rate [...] reflect actual GFR. Performed By: #### 2 4320-04, ####[facility] LABORATORYCLIA [id number] [place] [id number] [place] Glucose [Mass/Vol] 92 mg/dL Normal 70-100 [facility] Comment on above: Order Comment: Brady smith Type: BLOOD SPECIMENOrdering Facility: [facility] Address: [address] [place] [address] Result Comment: The [place] Diabetes Association (ADA) provides guidance for cutoff [...] Standards of Medical Care in Diabetes 2016, [place] [employer]. Diabetes Care. 2016.39(Suppl 1).Results may be falsely elevated after the administration of Sulfapyridine.Results may be falsely depressed after the administration of Sulfasalazine. Performed By: #### 2 432-, ####[facility] LABORATORYCLIA [id number] [place] [address] [place] Potassium [Moles/Vol] 3.2 mmol/L Low 3.5-5.1 [facility] Comment on above: Order Comment: Brady smith Type: BLOOD SPECIMENOrdering Facility: [facility] Address: [address] [place] [address] Performed By: #### 2 4320-04, ####[facility] LABORATORYCLIA [id number] [address] STATES [facility] Sodium [Moles/Vol] 138 mmol/L Normal 136-145 [facility] Comment on above: Order Comment: Brady smith Type: BLOOD SPECIMENOrdering Facility: [facility] Address: [address] [place] [address] Performed By: #### 2 4320-04, ####[facility] LABORATORYCLIA [id number] [place] [id number] [place] Urea nitrogen [Mass/Vol] 6 mg/dL Low 7-26 [facility] Comment on above: Order Comment: Brady smith Type: BLOOD SPECIMENOrdering Facility: [facility] Address: [address] [place] [address] Performed By: #### 2 4320-04, ####[facility] LABORATORYCLIA [id number] [place] [id number] [place] CASE MANAGEMon 07-10-2024 CASE MANAGEM Normal [facility] CBC W Auto Differential pane l (Bld)on 09-17-2023 Basophils (Bld) [#/Vol] 10*3/uL Normal <0.11 [facility] Comment on above: Order Comment: Speci men Type: BLOOD SPECIMENOrdering Facility: [facility] Address: [address] [place] [address] Performed By: #### 5 7021-8 ####[facility] LABORATORYCLIA [id number] [place] [id number] [place] Basophils/100 WBC (Bld) 0.3 % Normal [facility] Comment on above: Order Comment: Speci men Type: BLOOD SPECIMENOrdering Facility: [facility] Address: [address] [place] [address] Performed By: #### 5 7021-8 ####[facility] LABORATORYCLIA [id number] [address] [place] Differential cell count method Nom (Bld) Auto Normal [facility] Comment on above: Order Comment: Speci men Type: BLOOD SPECIMENOrdering Facility: [facility] Address: [address] [place] [address] Performed By: #### 5 7021-8 ####[facility] LABORATORYCLIA [id number] [place] [address] [place] Eosinophils (Bld) [#/Vol] 0.42 10*3/uL Normal <0.46 [facility] Comment on above: Order Comment: Speci men Type: BLOOD SPECIMENOrdering Facility: [facility] Address: [address] [place] [address] Performed By: #### 5 7021-8 ####[facility] LABORATORYCLIA [id number] [address] [place] Eosinophils/100 WBC (Bld) 6.8 % Normal [facility] Comment on above: Order Comment: Speci men Type: BLOOD SPECIMENOrdering Facility: [facility] Address: [address] [place] [address] Performed By: #### 5 7021-8 ####[facility] LABORATORYCLIA [id number] [place] [address] [place] Erythrocyte distribution width (RBC) [Ratio] 13.3 % Normal 11.5-15.0 [facility] Comment on above: Order Comment: Speci men Type: BLOOD SPECIMENOrdering Facility: [facility] Address: [address] [place] [address] Performed By: #### 5 7021-8 ####[facility] LABORATORYCLIA [id number] [place] [address] [place] Hematocrit (Bld) [Volume fraction] 36.5 % Normal 36.0-46.0 [facility] Comment on above: Order Comment: Speci men Type: BLOOD SPECIMENOrdering Facility: [facility] Address: [address] [place] [address] Performed By: #### 5 7021-8 ####[facility] LABORATORYCLIA [id number] [place] [address] [place] Hemoglobin (Bld) [Mass/Vol] 12.4 g/dL Normal 11.5-15.5 [facility] Comment on above: Order Comment: Speci men Type: BLOOD SPECIMENOrdering Facility: [facility] Address: [address] [place] [address] Performed By: #### 5 7021-8 ####[facility] LABORATORYCLIA [id number] [place] [address] [place] Immature granulocytes (Bld) [#/Vol] 10*3/uL Normal <0.10 [facility] Comment on above: Order Comment: Speci men Type: BLOOD SPECIMENOrdering Facility: [facility] Address: [address] [place] [address] Performed By: #### 5 7021-8 ####[facility] LABORATORYCLIA [id number] [place] [id number] [place] Immature granulocytes/100 WBC (Bld) 0.3 % Normal [facility] Comment on above: Order Comment: Speci men Type: BLOOD SPECIMENOrdering Facility: [facility] Address: [address] [place] [address] Performed By: #### 5 7021-8 ####[facility] LABORATORYCLIA [id number] [address] Lymphocytes (Bld) [#/Vol] 1.72 10*3/uL Normal 1.00-4.00 [facility] Comment on above: Order Comment: Speci men Type: BLOOD SPECIMENOrdering Facility: [facility] Address: [address] [place] [address] Performed By: #### 5 7021-8 ####[facility] LABORATORYCLIA [id number] [address] Lymphocytes/100 WBC (Bld) 27.7 % Normal [facility] Comment on above: Order Comment: Speci men Type: BLOOD SPECIMENOrdering Facility: [facility] Address: [address] [place] [address] Performed By: #### 5 7021-8 ####[facility] LABORATORYCLIA [id number] [address] [place] MCH (RBC) [Entitic mass] 28.2 pg Normal 26.0-34.0 [facility] Comment on above: Order Comment: Speci men Type: BLOOD SPECIMENOrdering Facility: [facility] Address: [address] [place] [address] Performed By: #### 5 7021-8 ####[facility] LABORATORYCLIA [id number] [address] [place] MCHC (RBC) [Mass/Vol] 34.0 g/dL Normal 30.5-36.0 [facility] Comment on above: Order Comment: Speci men Type: BLOOD SPECIMENOrdering Facility: [facility] Address: [address] [place] [address] Performed By: #### 5 7021-8 ####[facility] LABORATORYCLIA [id number] [place] [address] [place] MCV (RBC) [Entitic vol] 83.0 fL Normal 80.0-100.0 [facility] Comment on above: Order Comment: Speci men Type: BLOOD SPECIMENOrdering Facility: [facility] Address: [address] [place] [address] Performed By: #### 5 7021-8 ####[facility] LABORATORYCLIA [id number] [place] [address] [place] Monocytes (Bld) [#/Vol] 0.65 10*3/uL Normal <0.87 [facility] Comment on above: Order Comment: Speci men Type: BLOOD SPECIMENOrdering Facility: [facility] Address: [address] [place] [address] Performed By: #### 5 7021-8 ####[facility] LABORATORYCLIA [id number] [address] [place] Monocytes/100 WBC (Bld) 10.5 % Normal [facility] Comment on above: Order Comment: Speci men Type: BLOOD SPECIMENOrdering Facility: [facility] Address: [address] [place] [address] Performed By: #### 5 7021-8 ####[facility] LABORATORYCLIA [id number] [place] [address] [place] Neutrophils (Bld) [#/Vol] 3.37 10*3/uL Normal 1.45-7.50 [facility] Comment on above: Order Comment: Speci men Type: BLOOD SPECIMENOrdering Facility: [facility] Address: [address] [place] [address] Performed By: #### 5 7021-8 ####[facility] LABORATORYCLIA [id number] [place] [address] [place] Neutrophils/100 WBC (Bld) 54.4 % Normal [facility] Comment on above: Order Comment: Speci men Type: BLOOD SPECIMENOrdering Facility: [facility] Address: [address] [place] [address] Performed By: #### 5 7021-8 ####[facility] LABORATORYCLIA [id number] [place] [id number] [place] Nucleated RBC (Bld) [#/Vol] 10*3/uL Normal <0.01 [facility] Comment on above: Order Comment: Speci men Type: BLOOD SPECIMENOrdering Facility: [facility] Address: [address] [place] [address] Performed By: #### 5 7021-8 ####[facility] LABORATORYCLIA [id number] [place] [address] [place] Nucleated RBC/100 WBC (Bld) [Ratio] 0.0 /100 WBC Normal [facility] Comment on above: Order Comment: Speci men Type: BLOOD SPECIMENOrdering Facility: [facility] Address: [address] [place] [address] Performed By: #### 5 7021-8 ####[facility] LABORATORYCLIA [id number] [place] [address] [place] Platelet mean volume (Bld) [Entitic vol] 9.5 fL Normal 9.0-12.7 [facility] Comment on above: Order Comment: Speci men Type: BLOOD SPECIMENOrdering Facility: [facility] Address: [address] [place] [address] Performed By: #### 5 7021-8 ####[facility] LABORATORYCLIA [id number] [place] [address] [place] Platelets (Bld) [#/Vol] 115 10*3/uL Low 150-400 [facility] Comment on above: Order Comment: Speci men Type: BLOOD SPECIMENOrdering Facility: [facility] Address: [address] [place] [address] Result Comment: Resu lts checked and verified.No clot detected. Performed By: #### 5 7021-8 ####[facility] LABORATORYCLIA [id number] [place] [id number] [place] RBC (Bld) [#/Vol] 4.40 10*6/uL Normal 3.90-5.20 [facility] Comment on above: Order Comment: Speci men Type: BLOOD SPECIMENOrdering Facility: [facility] Address: [address] [place], [place] [address] Performed By: #### 5 7021-8 ####[facility] LABORATORYCLIA [id number] [place] [id number] [place] WBC (Bld) [#/Vol] 6.20 10*3/uL Normal 3.70-11.00 [facility] Comment on above: Order Comment: Speci men Type: BLOOD SPECIMENOrdering Facility: [facility] Address: [address] [place], [place] [address] Performed By: #### 5 7021-8 ####[facility] LABORATORYCLIA [id number] [place] [id number] [place] Magnesium SerPl-mCncon 09-16 Magnesium [Mass/Vol] 1.4 mg/dL Low 1.6-2.6 [facility] Comment on above: Order Comment: Speci men Type: BLOOD SPECIMENOrdering Facility: [facility] Address: [address] [place], [place] [address] Performed By: #### 2 4321-2, 23213-5 ####[facility] LABORATORYCLIA [id number] [place] [id number] [facility] [place] THERAPY NTon 09-17-2023 THERAPY NT Normal [facility] THERAPY NT Normal [facility] Basic metabolic 2000 panelon 09-16-2023 Anion gap [Moles/Vol] mmol/L Low 5-16 [facility] Comment on above: Order Comment: Speci men Type: BLOOD SPECIMENOrdering Facility: [facility] Address: [address] [place], [place] [address] Performed By: #### 2 4321-2 ####[facility] LABORATORYCLIA [id number] [place] [id number] [place] Calcium [Mass/Vol] 9.8 mg/dL Normal 8.5-10.5 [facility] Comment on above: Order Comment: Speci men Type: BLOOD SPECIMENOrdering Facility: [facility] Address: [address] [place] [address] Performed By: #### 2 4321-2 ####[facility] LABORATORYCLIA [id number] [place] [id number] [place] Chloride [Moles/Vol] 112 mmol/L High 98-107 [facility] Comment on above: Order Comment: Speci men Type: BLOOD SPECIMENOrdering Facility: [facility] Address: [address] [place] [address] Performed By: #### 2 4321-2 ####[facility] LABORATORYCLIA [id number] [place] [id number] [place] CO2 [Moles/Vol] 26 mmol/L Normal 21-32 [facility] Comment on above: Order Comment: Speci men Type: BLOOD SPECIMENOrdering Facility: [facility] Address: [address] [place] [address] Performed By: #### 2 4321-2 ####[facility] LABORATORYCLIA [id number] [place] [address] [place] Creatinine [Mass/Vol] 0.62 mg/dL Normal 0.51-0.95 [facility] Comment on above: Order Comment: Speci men Type: BLOOD SPECIMENOrdering Facility: [facility] Address: [address] [place] [address] Result Comment: Linn ents receiving either N-Acetylcysteine (NAC) or Metamizole prior to venipuncture, may have falsely depressed results. Performed By: #### 2 4321-2 ####[facility] LABORATORYCLIA [id number] [place] [address] [place] Creatinine and Glomerular filtration rate.predicted panel (S/P/Bld) 88 mL/min/1.73m??? Normal >=60 [facility] Comment on above: Order Comment: Speci men Type: BLOOD SPECIMENOrdering Facility: [facility] Address: [address] [place] [address] Result Comment: Esme mated Glomerular Filtration Rate [...] actual GFR. Performed By: #### 2 4321-2 ####[facility] LABORATORYCLIA [id number] [place] [id number] [place] Glucose [Mass/Vol] 75 mg/dL Normal 70-100 [facility] Comment on above: Order Comment: Brady smith Type: BLOOD SPECIMENOrdering Facility: [facility] Address: [address] [place] [address] Result Comment: The [place] [employer] (ADA) provides guidance for cutoff [...] Standards of Medical Care in Diabetes 2016, [place] [employer]. Diabetes Care. 2016.39(Suppl 1).Results may be falsely elevated after the administration of Sulfapyridine.Results may be falsely depressed after the administration of Sulfasalazine. Performed By: #### 2 4321-2 ####[facility] LABORATORYCLIA [id number] [place] [id number] [place] Potassium [Moles/Vol] 3.8 mmol/L Normal 3.5-5.1 [facility] Comment on above: Order Comment: Brady smith Type: BLOOD SPECIMENOrdering Facility: [facility] Address: [address] [place] [address] Performed By: #### 2 4321-2 ####[facility] LABORATORYCLIA [id number] [place] [id number] [place] Sodium [Moles/Vol] 140 mmol/L Normal 136-145 [facility] Comment on above: Order Comment: Speci men Type: BLOOD SPECIMENOrdering Facility: [facility] Address: [address] [place] [address] Performed By: #### 2 4321-2 ####[facility] LABORATORYCLIA [id number] [place] [id number] [place] Urea nitrogen [Mass/Vol] 7 mg/dL Normal 7-26 [facility] Comment on above: Order Comment: Speci men Type: BLOOD SPECIMENOrdering Facility: [facility] Address: [address] [place] [address] Performed By: #### 2 4321-2 ####[facility] LABORATORYCLIA [id number] [place] [id number] [place] CBC W Auto Differential pane l (Bld)on 09-16-2023 Basophils (Bld) [#/Vol] 10*3/uL Normal <0.11 [facility] Comment on above: Order Comment: Speci men Type: BLOOD SPECIMENOrdering Facility: [facility] Address: [address] [place] [address] Performed By: #### 5 7021-8 ####[facility] LABORATORYCLIA [id number] [address] [place] Basophils/100 WBC (Bld) 0.3 % Normal [facility] Comment on above: Order Comment: Speci men Type: BLOOD SPECIMENOrdering Facility: [facility] Address: [address] [place] [address] Performed By: #### 5 7021-8 ####[facility] LABORATORYCLIA [id number] [address] STATES [facility] Differential cell count method Nom (Bld) Auto Normal [facility] Comment on above: Order Comment: Speci men Type: BLOOD SPECIMENOrdering Facility: [facility] Address: [address] [place] [address] Performed By: #### 5 7021-8 ####[facility] LABORATORYCLIA [id number] [place] [address] [place] Eosinophils (Bld) [#/Vol] 0.44 10*3/uL Normal <0.46 [facility] Comment on above: Order Comment: Speci men Type: BLOOD SPECIMENOrdering Facility: [facility] Address: [address] [place] [address] Performed By: #### 5 7021-8 ####[facility] LABORATORYCLIA [id number] [place] [address] [place] Eosinophils/100 WBC (Bld) 6.5 % Normal [facility] Comment on above: Order Comment: Speci men Type: BLOOD SPECIMENOrdering Facility: [facility] Address: [address] [place] [address] Performed By: #### 5 7021-8 ####[facility] LABORATORYCLIA [id number] [place] [address] [place] Erythrocyte distribution width (RBC) [Ratio] 13.4 % Normal 11.5-15.0 [facility] Comment on above: Order Comment: Speci men Type: BLOOD SPECIMENOrdering Facility: [facility] Address: [address] [place] [address] Performed By: #### 5 7021-8 ####[facility] LABORATORYCLIA [id number] [place] [address] [place] Hematocrit (Bld) [Volume fraction] 37.6 % Normal 36.0-46.0 [facility] Comment on above: Order Comment: Speci men Type: BLOOD SPECIMENOrdering Facility: [facility] Address: [address] [place] [address] Performed By: #### 5 7021-8 ####[facility] LABORATORYCLIA [id number] [place] [address] [place] Hemoglobin (Bld) [Mass/Vol] 12.5 g/dL Normal 11.5-15.5 [facility] Comment on above: Order Comment: Speci men Type: BLOOD SPECIMENOrdering Facility: [facility] Address: [address] [place] [address] Performed By: #### 5 7021-8 ####[facility] LABORATORYCLIA [id number] [place] [id number] [place] Immature granulocytes (Bld) [#/Vol] 0.03 10*3/uL Normal <0.10 [facility] Comment on above: Order Comment: Speci men Type: BLOOD SPECIMENOrdering Facility: [facility] Address: [address] [place] [address] Performed By: #### 5 7021-8 ####[facility] LABORATORYCLIA [id number] [address] [place] Immature granulocytes/100 WBC (Bld) 0.4 % Normal [facility] Comment on above: Order Comment: Speci men Type: BLOOD SPECIMENOrdering Facility: [facility] Address: [address] [place] [address] Performed By: #### 5 7021-8 ####[facility] LABORATORYCLIA [id number] [place] [address] [place] Lymphocytes (Bld) [#/Vol] 2.24 10*3/uL Normal 1.00-4.00 [facility] Comment on above: Order Comment: Speci men Type: BLOOD SPECIMENOrdering Facility: [facility] Address: [address] [place] [address] Performed By: #### 5 7021-8 ####[facility] LABORATORYCLIA [id number] [place] [address] [place] Lymphocytes/100 WBC (Bld) 32.8 % Normal [facility] Comment on above: Order Comment: Speci men Type: BLOOD SPECIMENOrdering Facility: [facility] Address: [address] [place] [address] Performed By: #### 5 7021-8 ####[facility] LABORATORYCLIA [id number] [place] [address] [place] MCH (RBC) [Entitic mass] 27.9 pg Normal 26.0-34.0 [facility] Comment on above: Order Comment: Speci men Type: BLOOD SPECIMENOrdering Facility: [facility] Address: [address] [place] [address] Performed By: #### 5 7021-8 ####[facility] LABORATORYCLIA [id number] [address] [place] MCHC (RBC) [Mass/Vol] 33.2 g/dL Normal 30.5-36.0 [facility] Comment on above: Order Comment: Speci men Type: BLOOD SPECIMENOrdering Facility: [facility] Address: [address] [place] [address] Performed By: #### 5 7021-8 ####[facility] LABORATORYCLIA [id number] [place] [address] [place] MCV (RBC) [Entitic vol] 83.9 fL Normal 80.0-100.0 [facility] Comment on above: Order Comment: Speci men Type: BLOOD SPECIMENOrdering Facility: [facility] Address: [address] [place] [address] Performed By: #### 5 7021-8 ####[facility] LABORATORYCLIA [id number] [address] [place] Monocytes (Bld) [#/Vol] 0.86 10*3/uL Normal <0.87 [facility] Comment on above: Order Comment: Speci men Type: BLOOD SPECIMENOrdering Facility: [facility] Address: [address] [place] [address] Performed By: #### 5 7021-8 ####[facility] LABORATORYCLIA [id number] [address] [place] Monocytes/100 WBC (Bld) 12.6 % Normal [facility] Comment on above: Order Comment: Speci men Type: BLOOD SPECIMENOrdering Facility: [facility] Address: [address] [place] [address] Performed By: #### 5 7021-8 ####[facility] LABORATORYCLIA [id number] [place] [address] [place] Neutrophils (Bld) [#/Vol] 3.23 10*3/uL Normal 1.45-7.50 [facility] Comment on above: Order Comment: Speci men Type: BLOOD SPECIMENOrdering Facility: [facility] Address: [address] [place] [address] Performed By: #### 5 7021-8 ####[facility] LABORATORYCLIA [id number] [place] [address] [place] Neutrophils/100 WBC (Bld) 47.4 % Normal [facility] Comment on above: Order Comment: Speci men Type: BLOOD SPECIMENOrdering Facility: [facility] Address: [address] [place] [address] Performed By: #### 5 7021-8 ####[facility] LABORATORYCLIA [id number] [place] [address] [place] Nucleated RBC (Bld) [#/Vol] 10*3/uL Normal <0.01 [facility] Comment on above: Order Comment: Speci men Type: BLOOD SPECIMENOrdering Facility: [facility] Address: [address] [place] [address] Performed By: #### 5 7021-8 ####[facility] LABORATORYCLIA [id number] [place] [address] [place] Nucleated RBC/100 WBC (Bld) [Ratio] 0.0 /100 WBC Normal [facility] Comment on above: Order Comment: Speci men Type: BLOOD SPECIMENOrdering Facility: [facility] Address: [address] [place] [address] Performed By: #### 5 7021-8 ####[facility] LABORATORYCLIA [id number] [place] [address] [place] Platelet mean volume (Bld) [Entitic vol] 9.8 fL Normal 9.0-12.7 [facility] Comment on above: Order Comment: Speci men Type: BLOOD SPECIMENOrdering Facility: [facility] Address: [address] [place] [address] Performed By: #### 5 7021-8 ####[facility] LABORATORYCLIA [id number] [place] [id number] [facility] [place] Platelets (Bld) [#/Vol] 116 10*3/uL Low 150-400 [facility] Comment on above: Order Comment: Speci men Type: BLOOD SPECIMENOrdering Facility: [facility] Address: [address] [place] [address] Result Comment: No c lot detected. Performed By: #### 5 7021-8 ####[facility] LABORATORYCLIA [id number] [place] [address] [place] RBC (Bld) [#/Vol] 4.48 10*6/uL Normal 3.90-5.20 [facility] Comment on above: Order Comment: Speci men Type: BLOOD SPECIMENOrdering Facility: [facility] Address: [address] [place] [address] Performed By: #### 5 7021-8 ####[facility] LABORATORYCLIA [id number] [address] [facility] WBC (Bld) [#/Vol] 6.82 10*3/uL Normal 3.70-11.00 [facility] Comment on above: Order Comment: Speci men Type: BLOOD SPECIMENOrdering Facility: [facility] Address: [address] [place] [address] Performed By: #### 5 7021-8 ####[facility] LABORATORYCLIA [id number] [place] [id number] [facility] [place] THERAPY NTon 09-16-2023 THERAPY NT Normal [facility] THERAPY NT Normal [facility] Basic metabolic 2000 panelon 09-15-2023 Anion gap [Moles/Vol] 6 mmol/L Normal 5-16 [facility] Comment on above: Order Comment: Speci men Type: BLOOD SPECIMENOrdering Facility: [facility] Address: [address] [place] [address] Performed By: #### 2 4321-2 ####[facility] LABORATORYCLIA [id number] [place] [id number] [place] Calcium [Mass/Vol] 9.8 mg/dL Normal 8.5-10.5 [facility] Comment on above: Order Comment: Speci men Type: BLOOD SPECIMENOrdering Facility: [facility] Address: [address] [place] [address] Performed By: #### 2 4321-2 ####[facility] LABORATORYCLIA [id number] [place] [id number] [place] Chloride [Moles/Vol] 107 mmol/L Normal 98-107 [facility] Comment on above: Order Comment: Speci men Type: BLOOD SPECIMENOrdering Facility: [facility] Address: [address] [place] [address] Performed By: #### 2 4321-2 ####[facility] LABORATORYCLIA [id number] [place] [address] [place] CO2 [Moles/Vol] 27 mmol/L Normal 21-32 [facility] Comment on above: Order Comment: Speci men Type: BLOOD SPECIMENOrdering Facility: [facility] Address: [address] [place] [address] Performed By: #### 2 4321-2 ####[facility] LABORATORYCLIA [id number] [place] [id number] [place] Creatinine [Mass/Vol] 0.60 mg/dL Normal 0.51-0.95 [facility] Comment on above: Order Comment: Speci men Type: BLOOD SPECIMENOrdering Facility: [facility] Address: [address] [place] [address] Result Comment: Linn ents receiving either N-Acetylcysteine (NAC) or Metamizole prior to venipuncture, may have falsely depressed results. Performed By: #### 2 4321-2 ####[facility] LABORATORYCLIA [id number] [place] [address] [place] Creatinine and Glomerular filtration rate.predicted panel (S/P/Bld) 89 mL/min/1.73m??? Normal >=60 [facility] Comment on above: Order Comment: Brady smith Type: BLOOD SPECIMENOrdering Facility: [facility] Address: [address] [place] [address] Result Comment: Esme mated Glomerular Filtration Rate [...] actual GFR. Performed By: #### 2 4321-2 ####[facility] LABORATORYCLIA [id number] [place] [address] [place] Glucose [Mass/Vol] 92 mg/dL Normal 70-100 [facility] Comment on above: Order Comment: Brady smith Type: BLOOD SPECIMENOrdering Facility: [facility] Address: [address] [place] [address] Result Comment: The [place] [employer] (ADA) provides guidance for cutoff [...] Standards of Medical Care in Diabetes 2016, [place] [employer]. Diabetes Care. 2016.39(Suppl 1).Results may be falsely elevated after the administration of Sulfapyridine.Results may be falsely depressed after the administration of Sulfasalazine. Performed By: #### 2 4321-2 ####[facility] LABORATORYCLIA [id number] [place] [address] [place] Potassium [Moles/Vol] 3.6 mmol/L Normal 3.5-5.1 [facility] Comment on above: Order Comment: Brady smith Type: BLOOD SPECIMENOrdering Facility: [facility] Address: [address] [place] [address] Performed By: #### 2 4321-2 ####[facility] LABORATORYCLIA [id number] [place] [id number] [place] Sodium [Moles/Vol] 140 mmol/L Normal 136-145 [facility] Comment on above: Order Comment: Speci men Type: BLOOD SPECIMENOrdering Facility: [facility] Address: [address] [place] [address] Performed By: #### 2 4321-2 ####[facility] LABORATORYCLIA [id number] [place] [id number] [place] Urea nitrogen [Mass/Vol] 6 mg/dL Low 10-02 [facility] Comment on above: Order Comment: Speci men Type: BLOOD SPECIMENOrdering Facility: [facility] Address: [address] [place] [address] Performed By: #### 2 4321-2 ####[facility] LABORATORYCLIA [id number] [place] [id number] [place] CASE MGT INIT ASSESon 2023 CASE MGT INIT ASSES Normal [facility] CBC W Auto Differential pane l (Bld)on 09-15-2023 Basophils (Bld) [#/Vol] 0.03 10*3/uL Normal <0.11 [facility] Comment on above: Order Comment: Speci men Type: BLOOD SPECIMENOrdering Facility: [facility] Address: [address] [place] [address] Performed By: #### 5 7021-8 ####[facility] LABORATORYCLIA [id number] [place] [id number] [place] Basophils/100 WBC (Bld) 0.4 % Normal [facility] Comment on above: Order Comment: Speci men Type: BLOOD SPECIMENOrdering Facility: [facility] Address: [address] [place] [address] Performed By: #### 5 7021-8 ####[facility] LABORATORYCLIA [id number] [address] [place] Differential cell count method Nom (Bld) Auto Normal [facility] Comment on above: Order Comment: Speci men Type: BLOOD SPECIMENOrdering Facility: [facility] Address: [address] [place] [address] Performed By: #### 5 7021-8 ####[facility] LABORATORYCLIA [id number] [place] [address] [place] Eosinophils (Bld) [#/Vol] 0.27 10*3/uL Normal <0.46 [facility] Comment on above: Order Comment: Speci men Type: BLOOD SPECIMENOrdering Facility: [facility] Address: [address] [place] [address] Performed By: #### 5 7021-8 ####[facility] LABORATORYCLIA [id number] [address] [place] Eosinophils/100 WBC (Bld) 3.3 % Normal [facility] Comment on above: Order Comment: Speci men Type: BLOOD SPECIMENOrdering Facility: [facility] Address: [address] [place] [address] Performed By: #### 5 7021-8 ####[facility] LABORATORYCLIA [id number] [address] [place] Erythrocyte distribution width (RBC) [Ratio] 13.2 % Normal 11.5-15.0 [facility] Comment on above: Order Comment: Speci men Type: BLOOD SPECIMENOrdering Facility: [facility] Address: [address] [place] [address] Performed By: #### 5 7021-8 ####[facility] LABORATORYCLIA [id number] [address] [place] Hematocrit (Bld) [Volume fraction] 38.5 % Normal 36.0-46.0 [facility] Comment on above: Order Comment: Speci men Type: BLOOD SPECIMENOrdering Facility: [facility] Address: [address] [place] [address] Performed By: #### 5 7021-8 ####[facility] LABORATORYCLIA [id number] [place] [address] [place] Hemoglobin (Bld) [Mass/Vol] 13.2 g/dL Normal 11.5-15.5 [facility] Comment on above: Order Comment: Speci men Type: BLOOD SPECIMENOrdering Facility: [facility] Address: [address] [place] [address] Performed By: #### 5 7021-8 ####[facility] LABORATORYCLIA [id number] [place] [address] [place] Immature granulocytes (Bld) [#/Vol] 0.03 10*3/uL Normal <0.10 [facility] Comment on above: Order Comment: Speci men Type: BLOOD SPECIMENOrdering Facility: [facility] Address: [address] [place] [address] Performed By: #### 5 7021-8 ####[facility] LABORATORYCLIA [id number] [place] [address] [place] Immature granulocytes/100 WBC (Bld) 0.4 % Normal [facility] Comment on above: Order Comment: Speci men Type: BLOOD SPECIMENOrdering Facility: [facility] Address: [address] [place] [address] Performed By: #### 5 7021-8 ####[facility] LABORATORYCLIA [id number] [place] [address] [place] Lymphocytes (Bld) [#/Vol] 1.95 10*3/uL Normal 1.00-4.00 [facility] Comment on above: Order Comment: Speci men Type: BLOOD SPECIMENOrdering Facility: [facility] Address: [address] [place] [address] Performed By: #### 5 7021-8 ####[facility] LABORATORYCLIA [id number] [place] [id number] [place] Lymphocytes/100 WBC (Bld) 23.6 % Normal [facility] Comment on above: Order Comment: Speci men Type: BLOOD SPECIMENOrdering Facility: [facility] Address: [address] [place] [address] Performed By: #### 5 7021-8 ####[facility] LABORATORYCLIA [id number] [place] [address] [place] MCH (RBC) [Entitic mass] 28.2 pg Normal 26.0-34.0 [facility] Comment on above: Order Comment: Speci men Type: BLOOD SPECIMENOrdering Facility: [facility] Address: [address] [place] [address] Performed By: #### 5 7021-8 ####[facility] LABORATORYCLIA [id number] [address] [place] MCHC (RBC) [Mass/Vol] 34.3 g/dL Normal 30.5-36.0 [place] [facility] Comment on above: Order Comment: Speci men Type: BLOOD SPECIMENOrdering Facility: [facility] Address: [address] [place] [address] Performed By: #### 5 7021-8 ####[facility] LABORATORYCLIA [id number] [address] [place] MCV (RBC) [Entitic vol] 82.3 fL Normal 80.0-100.0 [facility] Comment on above: Order Comment: Speci men Type: BLOOD SPECIMENOrdering Facility: [facility] Address: [address] [place] [address] Performed By: #### 5 7021-8 ####[facility] LABORATORYCLIA [id number] [place] [address] [place] Monocytes (Bld) [#/Vol] 1.03 10*3/uL High <0.87 [facility] Comment on above: Order Comment: Speci men Type: BLOOD SPECIMENOrdering Facility: [facility] Address: [address] [place] [address] Performed By: #### 5 7021-8 ####[facility] LABORATORYCLIA [id number] [address] [place] Monocytes/100 WBC (Bld) 12.5 % Normal [facility] Comment on above: Order Comment: Speci men Type: BLOOD SPECIMENOrdering Facility: [facility] Address: [address] [place] [address] Performed By: #### 5 7021-8 ####[facility] LABORATORYCLIA [id number] [place] [address] [place] Neutrophils (Bld) [#/Vol] 4.94 10*3/uL Normal 1.45-7.50 [facility] Comment on above: Order Comment: Speci men Type: BLOOD SPECIMENOrdering Facility: [facility] Address: [address] [place] [address] Performed By: #### 5 7021-8 ####[facility] LABORATORYCLIA [id number] [address] [place] Neutrophils/100 WBC (Bld) 59.8 % Normal [facility] Comment on above: Order Comment: Speci men Type: BLOOD SPECIMENOrdering Facility: [facility] Address: [address] [place] [address] Performed By: #### 5 7021-8 ####[facility] LABORATORYCLIA [id number] [place] [address] [place] Nucleated RBC (Bld) [#/Vol] 10*3/uL Normal <0.01 [facility] Comment on above: Order Comment: Speci men Type: BLOOD SPECIMENOrdering Facility: [facility] Address: [address] [place] [address] Performed By: #### 5 7021-8 ####[facility] LABORATORYCLIA [id number] [place] [id number] [place] Nucleated RBC/100 WBC (Bld) [Ratio] 0.0 /100 WBC Normal [facility] Comment on above: Order Comment: Speci men Type: BLOOD SPECIMENOrdering Facility: [facility] Address: [address] [place] [address] Performed By: #### 5 7021-8 ####[facility] LABORATORYCLIA [id number] [address] [place] Platelet mean volume (Bld) [Entitic vol] 9.5 fL Normal 9.0-12.7 [facility] Comment on above: Order Comment: Speci men Type: BLOOD SPECIMENOrdering Facility: [facility] Address: [address] [place] [address] Performed By: #### 5 7021-8 ####[facility] LABORATORYCLIA [id number] [place] [address] [place] Platelets (Bld) [#/Vol] 136 10*3/uL Low 150-400 [facility] Comment on above: Order Comment: Speci men Type: BLOOD SPECIMENOrdering Facility: [facility] Address: [address] [place] [address] Result Comment: No c lot detected. Performed By: #### 5 7021-8 ####[facility] LABORATORYCLIA [id number] [place] [address] [place] RBC (Bld) [#/Vol] 4.68 10*6/uL Normal 3.90-5.20 [facility] Comment on above: Order Comment: Speci men Type: BLOOD SPECIMENOrdering Facility: [facility] Address: [address] [place] [address] Performed By: #### 5 7021-8 ####[facility] LABORATORYCLIA [id number] [place] [address] [place] WBC (Bld) [#/Vol] 8.25 10*3/uL Normal 3.70-11.00 [facility] Comment on above: Order Comment: Speci men Type: BLOOD SPECIMENOrdering Facility: [facility] Address: [address] [place] [address] Performed By: #### 5 7021-8 ####[facility] LABORATORYCLIA [id number] [place] [id number] [place] NUTRITIONon 09-15-2023 NUTRITION Normal [facility] THERAPY NTon 09-15-2023 THERAPY NT Normal [facility] THERAPY NT Normal [facility] Ammonia Plas-sCncon 09-14-19 24 Ammonia (P) [Moles/Vol] 22 umol/L Normal 11-32 [facility] Comment on above: Order Comment: Speci men Type: BLOOD SPECIMENOrdering Facility: [facility] Address: [address] [place] [address] Result Comment: Resu lts may be falsely depressed after the administration of Sulfapyridine. Results may be falsely elevated after the administration of Sulfasalazine. Performed By: #### 1 6362-6 ####[facility] LABORATORYCLIA [id number] [place] [id number] [place] Basic metabolic 2000 panelon 09-14-2023 Anion gap [Moles/Vol] 10 mmol/L Normal 5-16 [facility] Comment on above: Order Comment: Speci men Type: BLOOD SPECIMENOrdering Facility: [facility] Address: [address] [place] [address] Performed By: #### 2 4321-2, ####[facility] LABORATORYCLIA [id number] [place] [address] [place] Calcium [Mass/Vol] 10.1 mg/dL Normal 8.5-10.5 [facility] Comment on above: Order Comment: Speci men Type: BLOOD SPECIMENOrdering Facility: [facility] Address: [address] [place] [address] Performed By: #### 2 4321-2, ####[facility] LABORATORYCLIA [id number] [place] [id number] [place] Chloride [Moles/Vol] 102 mmol/L Normal 98-107 [facility] Comment on above: Order Comment: Speci men Type: BLOOD SPECIMENOrdering Facility: [facility] Address: [address] [place] [address] Performed By: #### 2 4321-2, ####[facility] LABORATORYCLIA [id number] [place] [id number] [place] CO2 [Moles/Vol] 27 mmol/L Normal 21-32 [facility] Comment on above: Order Comment: Brady smith Type: BLOOD SPECIMENOrdering Facility: [facility] Address: [address] [place] [address] Performed By: #### 2 43203-11, ####[facility] LABORATORYCLIA [id number] [place] [id number] [place] Creatinine [Mass/Vol] 0.66 mg/dL Normal 0.51-0.95 [facility] Comment on above: Order Comment: Speci men Type: BLOOD SPECIMENOrdering Facility: [facility] Address: [address] [place] [address] Result Comment: Linn ents receiving either N-Acetylcysteine (NAC) or Metamizole prior to venipuncture, may have falsely depressed results. Performed By: #### 2 43203-11, ####[facility] LABORATORYCLIA [id number] [address] OF [facility] Creatinine and Glomerular filtration rate.predicted panel (S/P/Bld) 87 mL/min/1.73m??? Normal >=60 [facility] Comment on above: Order Comment: Brady smith Type: BLOOD SPECIMENOrdering Facility: [facility] Address: [address] [place] [address] Result Comment: Esme mated Glomerular Filtration Rate [...] reflect actual GFR. Performed By: #### 2 432-, ####[facility] LABORATORYCLIA [id number] [place] [id number] [place] Glucose [Mass/Vol] 97 mg/dL Normal 70-100 [facility] Comment on above: Order Comment: Brady smith Type: BLOOD SPECIMENOrdering Facility: [facility] Address: [address] [place] [address] Result Comment: The [place] [employer] (ADA) provides guidance for cutoff [...] Standards of Medical Care in Diabetes 2016, [place] [employer]. Diabetes Care. 2016.39(Suppl 1).Results may be falsely elevated after the administration of Sulfapyridine.Results may be falsely depressed after the administration of Sulfasalazine. Performed By: #### 2 43203-11, ####[facility] LABORATORYCLIA [id number] [place] [address] [place] Potassium [Moles/Vol] 3.4 mmol/L Low 3.5-5.1 [facility] Comment on above: Order Comment: Speci men Type: BLOOD SPECIMENOrdering Facility: [facility] Address: [address] [place] [address] Performed By: #### 2 4320-04, ####[facility] LABORATORYCLIA [id number] [place] [address] [place] Sodium [Moles/Vol] 139 mmol/L Normal 136-145 [facility] Comment on above: Order Comment: Speci men Type: BLOOD SPECIMENOrdering Facility: [facility] Address: [address] [place] [address] Performed By: #### 2 4320-04, ####[facility] LABORATORYCLIA [id number] [place] [id number] [place] Urea nitrogen [Mass/Vol] 8 mg/dL Normal 7-26 [facility] Comment on above: Order Comment: Speci men Type: BLOOD SPECIMENOrdering Facility: [facility] Address: [address] [place] [address] Performed By: #### 2 4321-2, 66892-3 ####[facility] LABORATORYCLIA [id number] [place] [id number] [facility] [place] CBC panel Auto (Bld)on 09-13 Erythrocyte distribution width (RBC) [Ratio] 12.9 % Normal 11.5-15.0 [facility] Comment on above: Order Comment: Speci men Type: BLOOD SPECIMENOrdering Facility: [facility] Address: [address] [place] [address] Performed By: #### 5 8410-2 ####[facility] LABORATORYCLIA [id number] [address] [place] Hematocrit (Bld) [Volume fraction] 40.6 % Normal 36.0-46.0 [facility] Comment on above: Order Comment: Speci men Type: BLOOD SPECIMENOrdering Facility: [facility] Address: [address] [place] [address] Performed By: #### 5 8410-2 ####[facility] LABORATORYCLIA [id number] [address] [place] Hemoglobin (Bld) [Mass/Vol] 13.8 g/dL Normal 11.5-15.5 [facility] Comment on above: Order Comment: Speci men Type: BLOOD SPECIMENOrdering Facility: [facility] Address: [address] [place] [address] Performed By: #### 5 8410-2 ####[facility] LABORATORYCLIA [id number] [address] [place] MCH (RBC) [Entitic mass] 27.8 pg Normal 26.0-34.0 [facility] Comment on above: Order Comment: Speci men Type: BLOOD SPECIMENOrdering Facility: [facility] Address: [address] [place] [address] Performed By: #### 5 8410-2 ####[facility] LABORATORYCLIA [id number] [address] [place] MCHC (RBC) [Mass/Vol] 34.0 g/dL Normal 30.5-36.0 [facility] Comment on above: Order Comment: Speci men Type: BLOOD SPECIMENOrdering Facility: [facility] Address: [address] [place] [address] Performed By: #### 5 8410-2 ####[facility] LABORATORYCLIA [id number] [place] [address] [place] MCV (RBC) [Entitic vol] 81.7 fL Normal 80.0-100.0 [facility] Comment on above: Order Comment: Speci men Type: BLOOD SPECIMENOrdering Facility: [facility] Address: [address] [place] [address] Performed By: #### 5 8410-2 ####[facility] LABORATORYCLIA [id number] [place] [address] [place] Nucleated RBC (Bld) [#/Vol] 10*3/uL Normal <0.01 [facility] Comment on above: Order Comment: Speci men Type: BLOOD SPECIMENOrdering Facility: [facility] Address: [address] [place] [address] Performed By: #### 5 8410-2 ####[facility] LABORATORYCLIA [id number] [place] [address] [place] Platelet mean volume (Bld) [Entitic vol] 9.9 fL Normal 9.0-12.7 [facility] Comment on above: Order Comment: Speci men Type: BLOOD SPECIMENOrdering Facility: [facility] Address: [address] [place] [address] Performed By: #### 5 8410-2 ####[facility] LABORATORYCLIA [id number] [place] [address] [place] Platelets (Bld) [#/Vol] 156 10*3/uL Normal 150-400 [facility] Comment on above: Order Comment: Speci men Type: BLOOD SPECIMENOrdering Facility: [facility] Address: [address] [place] [address] Performed By: #### 5 8410-2 ####[facility] LABORATORYCLIA [id number] [place] [id number] [place] RBC (Bld) [#/Vol] 4.97 10*6/uL Normal 3.90-5.20 [facility] Comment on above: Order Comment: Speci men Type: BLOOD SPECIMENOrdering Facility: [facility] Address: [address] [place] [address] Performed By: #### 5 8410-2 ####[facility] LABORATORYCLIA [id number] [address] OF [facility] WBC (Bld) [#/Vol] 7.41 10*3/uL Normal 3.70-11.00 [facility] Comment on above: Order Comment: Speci men Type: BLOOD SPECIMENOrdering Facility: [facility] Address: [address] [place] [address] Performed By: #### 5 8410-2 ####[facility] LABORATORYCLIA [id number] [place] [id number] [facility] [place] Magnesium SerPl-mCncon 09-13 Magnesium [Mass/Vol] 1.9 mg/dL Normal 1.6-2.6 [facility] Comment on above: Order Comment: Speci men Type: BLOOD SPECIMENOrdering Facility: [facility] Address: [address] [place] [address] Performed By: #### 2 4321-2, 17122-3 ####[facility] LABORATORYCLIA [id number] [place] [id number] [facility] [place] CBC W Auto Differential pane l (Bld)on 09-13-2023 Basophils (Bld) [#/Vol] 10*3/uL Normal <0.11 [facility] Comment on above: Order Comment: Speci men Type: BLOOD SPECIMENOrdering Facility: [facility] Address: [address] [place] [address] Performed By: #### 5 7021-8 ####[facility] LABORATORYCLIA [id number] [place] [address] [place] Basophils/100 WBC (Bld) 0.2 % Normal [facility] Comment on above: Order Comment: Speci men Type: BLOOD SPECIMENOrdering Facility: [facility] Address: [address] [place] [address] Performed By: #### 5 7021-8 ####[facility] LABORATORYCLIA [id number] [place] [address] [place] Differential cell count method Nom (Bld) Auto Normal [facility] Comment on above: Order Comment: Speci men Type: BLOOD SPECIMENOrdering Facility: [facility] Address: [address] [place] [address] Performed By: #### 5 7021-8 ####[facility] LABORATORYCLIA [id number] [place] [address] [place] Eosinophils (Bld) [#/Vol] 0.10 10*3/uL Normal <0.46 [facility] Comment on above: Order Comment: Speci men Type: BLOOD SPECIMENOrdering Facility: [facility] Address: [address] [place] [address] Performed By: #### 5 7021-8 ####[facility] LABORATORYCLIA [id number] [address] [place] Eosinophils/100 WBC (Bld) 1.2 % Normal [facility] Comment on above: Order Comment: Speci men Type: BLOOD SPECIMENOrdering Facility: [facility] Address: [address] [place] [address] Performed By: #### 5 7021-8 ####[facility] LABORATORYCLIA [id number] [address] [place] Erythrocyte distribution width (RBC) [Ratio] 12.9 % Normal 11.5-15.0 [facility] Comment on above: Order Comment: Speci men Type: BLOOD SPECIMENOrdering Facility: [facility] Address: [facility] [place] [address] Performed By: #### 5 7021-8 ####[facility] LABORATORYCLIA [id number] [place] [id number] [place] Hematocrit (Bld) [Volume fraction] 40.0 % Normal 36.0-46.0 [facility] Comment on above: Order Comment: Speci men Type: BLOOD SPECIMENOrdering Facility: [facility] Address: [address] [place] [address] Performed By: #### 5 7021-8 ####[facility] LABORATORYCLIA [id number] [place] [address] [place] Hemoglobin (Bld) [Mass/Vol] 14.2 g/dL Normal 11.5-15.5 [facility] Comment on above: Order Comment: Speci men Type: BLOOD SPECIMENOrdering Facility: [facility] Address: [address] [place] [address] Performed By: #### 5 7021-8 ####[facility] LABORATORYCLIA [id number] [place] [address] [place] Immature granulocytes (Bld) [#/Vol] 0.03 10*3/uL Normal <0.10 [facility] Comment on above: Order Comment: Speci men Type: BLOOD SPECIMENOrdering Facility: [facility] Address: [address] [place] [address] Performed By: #### 5 7021-8 ####[facility] LABORATORYCLIA [id number] [place] [address] [place] Immature granulocytes/100 WBC (Bld) 0.4 % Normal [facility] Comment on above: Order Comment: Speci men Type: BLOOD SPECIMENOrdering Facility: [facility] Address: [address] [place] [address] Performed By: #### 5 7021-8 ####[facility] LABORATORYCLIA [id number] [place] [address] [place] Lymphocytes (Bld) [#/Vol] 1.23 10*3/uL Normal 1.00-4.00 [facility] Comment on above: Order Comment: Speci men Type: BLOOD SPECIMENOrdering Facility: [facility] Address: [address] [place] [address] Performed By: #### 5 7021-8 ####[facility] LABORATORYCLIA [id number] [address] [place] Lymphocytes/100 WBC (Bld) 14.9 % Normal [facility] Comment on above: Order Comment: Speci men Type: BLOOD SPECIMENOrdering Facility: [facility] Address: [address] [place] [address] Performed By: #### 5 7021-8 ####[facility] LABORATORYCLIA [id number] [place] [address] [place] MCH (RBC) [Entitic mass] 28.6 pg Normal 26.0-34.0 [facility] Comment on above: Order Comment: Speci men Type: BLOOD SPECIMENOrdering Facility: [facility] Address: [address] [place] [address] Performed By: #### 5 7021-8 ####[facility] LABORATORYCLIA [id number] [address] [place] MCHC (RBC) [Mass/Vol] 35.5 g/dL Normal 30.5-36.0 [facility] Comment on above: Order Comment: Speci men Type: BLOOD SPECIMENOrdering Facility: [facility] Address: [address] [place] [address] Performed By: #### 5 7021-8 ####[facility] LABORATORYCLIA [id number] [place] [address] [place] MCV (RBC) [Entitic vol] 80.6 fL Normal 80.0-100.0 [facility] Comment on above: Order Comment: Speci men Type: BLOOD SPECIMENOrdering Facility: [facility] Address: [address] [place] [address] Performed By: #### 5 7021-8 ####[facility] LABORATORYCLIA [id number] [place] [address] [place] Monocytes (Bld) [#/Vol] 0.92 10*3/uL High <0.87 [facility] Comment on above: Order Comment: Speci men Type: BLOOD SPECIMENOrdering Facility: [facility] Address: [address] [place] [address] Performed By: #### 5 7021-8 ####[facility] LABORATORYCLIA [id number] [place] [id number] [place] Monocytes/100 WBC (Bld) 11.1 % Normal [facility] Comment on above: Order Comment: Speci men Type: BLOOD SPECIMENOrdering Facility: [facility] Address: [address] [place] [address] Performed By: #### 5 7021-8 ####[facility] LABORATORYCLIA [id number] [place] [address] [place] Neutrophils (Bld) [#/Vol] 5.98 10*3/uL Normal 1.45-7.50 [facility] Comment on above: Order Comment: Speci men Type: BLOOD SPECIMENOrdering Facility: [facility] Address: [address] [place] [address] Performed By: #### 5 7021-8 ####[facility] LABORATORYCLIA [id number] [place] [address] [place] Neutrophils/100 WBC (Bld) 72.2 % Normal [facility] Comment on above: Order Comment: Speci men Type: BLOOD SPECIMENOrdering Facility: [facility] Address: [address] [place] [address] Performed By: #### 5 7021-8 ####[facility] LABORATORYCLIA [id number] [place] [id number] [place] Nucleated RBC (Bld) [#/Vol] 10*3/uL Normal <0.01 [facility] Comment on above: Order Comment: Speci men Type: BLOOD SPECIMENOrdering Facility: [facility] Address: [address] [place] [address] Performed By: #### 5 7021-8 ####[facility] LABORATORYCLIA [id number] [place] [id number] [place] Nucleated RBC/100 WBC (Bld) [Ratio] 0.0 /100 WBC Normal [facility] Comment on above: Order Comment: Speci men Type: BLOOD SPECIMENOrdering Facility: [facility] Address: [address] [place] [address] Performed By: #### 5 7021-8 ####[facility] LABORATORYCLIA [id number] [place] [id number] [place] Platelet mean volume (Bld) [Entitic vol] 9.6 fL Normal 9.0-12.7 [facility] Comment on above: Order Comment: Speci men Type: BLOOD SPECIMENOrdering Facility: [facility] Address: [address] [place] [address] Performed By: #### 5 7021-8 ####[facility] LABORATORYCLIA [id number] [place] [id number] [place] Platelets (Bld) [#/Vol] 151 10*3/uL Normal 150-400 [facility] Comment on above: Order Comment: Speci men Type: BLOOD SPECIMENOrdering Facility: [facility] Address: [address] [place] [address] Performed By: #### 5 7021-8 ####[facility] LABORATORYCLIA [id number] [place] [id number] [place] RBC (Bld) [#/Vol] 4.96 10*6/uL Normal 3.90-5.20 [facility] Comment on above: Order Comment: Speci men Type: BLOOD SPECIMENOrdering Facility: [facility] Address: [address] [place] [address] Performed By: #### 5 7021-8 ####[facility] LABORATORYCLIA [id number] [place] [id number] [place] WBC (Bld) [#/Vol] 8.28 10*3/uL Normal 3.70-11.00 [facility] Comment on above: Order Comment: Speci men Type: BLOOD SPECIMENOrdering Facility: [facility] Address: [address] [place] [address] Performed By: #### 5 7021-8 ####[facility] LABORATORYCLIA [id number] [place] [id number] [facility] Comprehensive metabolic 2000 panelon 09-13-2023 Albumin [Mass/Vol] 3.6 g/dL Normal 3.2-5.0 [facility] Comment on above: Order Comment: Speci men Type: BLOOD SPECIMENOrdering Facility: [facility] Address: [address] [place] [address] Performed By: #### 2 4323-8, 48214-1 ####[facility] LABORATORYCLIA [id number] [place] [id number] [place] ALP [Catalytic activity/Vol] 102 U/L Normal 45-117 [facility] Comment on above: Order Comment: Speci men Type: BLOOD SPECIMENOrdering Facility: [facility] Address: [address] [place] [address] Performed By: #### 2 4323-8, ####[facility] LABORATORYCLIA [id number] [place] [id number] [facility] ALT [Catalytic activity/Vol] 10 U/L Low 13-61 [facility] Comment on above: Order Comment: Speci men Type: BLOOD SPECIMENOrdering Facility: [facility] Address: [address] [place] [address] Result Comment: Resu lts may be falsely depressed after the administration of Sulfasalazine and/or Sulfapyridine. Performed By: #### 2 4323-8, ####[facility] LABORATORYCLIA [id number] [place] [id number] [place] Anion gap [Moles/Vol] 9 mmol/L Normal 5-16 [facility] Comment on above: Order Comment: Speci men Type: BLOOD SPECIMENOrdering Facility: [facility] Address: [address] [place] [address] Performed By: #### 2 4322-10, ####[facility] LABORATORYCLIA [id number] [place] [address] [place] AST [Catalytic activity/Vol] 17 U/L Normal 8-34 [facility] Comment on above: Order Comment: Speci men Type: BLOOD SPECIMENOrdering Facility: [facility] Address: [address] [place] [address] Result Comment: Resu lts may be falsely depressed after the administration of Sulfasalazine and/or Sulfapyridine. Performed By: #### 2 4322-10, ####[facility] LABORATORYCLIA [id number] [place] [id number] [place] Bilirubin [Mass/Vol] 0.8 mg/dL Normal 0.2-1.0 [facility] Comment on above: Order Comment: Speci men Type: BLOOD SPECIMENOrdering Facility: [facility] Address: [address] [place] [address] Performed By: #### 2 4322-10, ####[facility] LABORATORYCLIA [id number] [place] [id number] [place] Calcium [Mass/Vol] 10.7 mg/dL High 8.5-10.5 [facility] Comment on above: Order Comment: Speci men Type: BLOOD SPECIMENOrdering Facility: [facility] Address: [address] [place] [address] Performed By: #### 2 4322-10, ####[facility] LABORATORYCLIA [id number] [place] [id number] [place] Chloride [Moles/Vol] 92 mmol/L Low 98-107 [facility] Comment on above: Order Comment: Speci men Type: BLOOD SPECIMENOrdering Facility: [facility] Address: [address] [place] [address] Performed By: #### 2 4328, ####[facility] LABORATORYCLIA [id number] [place] [id number] [place] CO2 [Moles/Vol] 33 mmol/L High 21-32 [facility] Comment on above: Order Comment: Speci luis Type: BLOOD SPECIMENOrdering Facility: [facility] Address: [address] [place] [address] Performed By: #### 2 4323-8, ####[facility] LABORATORYCLIA [id number] [place] [id number] [place] Creatinine [Mass/Vol] 0.99 mg/dL High 0.51-0.95 [facility] Comment on above: Order Comment: Speci men Type: BLOOD SPECIMENOrdering Facility: [facility] Address: [address] [place] [address] Result Comment: Linn ents receiving either N-Acetylcysteine (NAC) or Metamizole prior to venipuncture, may have falsely depressed results. Performed By: #### 2 4323-8, ####[facility] LABORATORYCLIA [id number] [address] Creatinine and Glomerular filtration rate.predicted panel (S/P/Bld) 56 mL/min/1.73m??? Low >=60 [facility] Comment on above: Order Comment: Brady smith Type: BLOOD SPECIMENOrdering Facility: [facility] Address: [address] [place] [address] Result Comment: Esme mated Glomerular Filtration Rate [...] actual GFR. Performed By: #### 2 4323-8, ####[facility] LABORATORYCLIA [id number] [place] [id number] [place] Glucose [Mass/Vol] 103 mg/dL High 70-100 [facility] Comment on above: Order Comment: Jayyi men Type: BLOOD SPECIMENOrdering Facility: [facility] Address: [address] [place] [id number] Result Comment: The [place] [employer] Association (ADA) provides guidance for cutoff [...] Standards of Medical Care in Diabetes 2016, [place] [employer]. Diabetes Care. 2016.39(Suppl 1).Results may be falsely elevated after the administration of Sulfapyridine.Results may be falsely depressed after the administration of Sulfasalazine. Performed By: #### 2 4323-8, ####[facility] LABORATORYCLIA [id number] [place] [id number] [place] Potassium [Moles/Vol] 2.7 mmol/L Low 3.5-5.1 [facility] Comment on above: Order Comment: Speci men Type: BLOOD SPECIMENOrdering Facility: [facility] Address: [address] [place] [id number] Performed By: #### 2 4323-8, ####[facility] LABORATORYCLIA [id number] [place] [id number] [place] Protein [Mass/Vol] 7.3 g/dL Normal 6.0-8.5 [facility] Comment on above: Order Comment: Speci men Type: BLOOD SPECIMENOrdering Facility: [facility] Address: [address] [place] [address] Performed By: #### 2 4323-8, ####[facility] LABORATORYCLIA [id number] [place] [id number] [place] Sodium [Moles/Vol] 134 mmol/L Low 136-145 [facility] Comment on above: Order Comment: Speci men Type: BLOOD SPECIMENOrdering Facility: [facility] Address: [address] [place], [place] [address] Performed By: #### 2 4323-8, 86915-2 ####[facility] LABORATORYCLIA [id number] [place] [address] [place] Urea nitrogen [Mass/Vol] 18 mg/dL Normal 10-02 [facility] Comment on above: Order Comment: Speci men Type: BLOOD SPECIMENOrdering Facility: [facility] Address: [address] [place], [place] [address] Performed By: #### 2 4323-8, 61188-1 ####[facility] LABORATORYCLIA [id number] [place] [id number] [facility] [place] ECG COMPLETEon 09-13-2023 ECG COMPLETE Normal [facility] ED NOTEon 09-13-2023 ED NOTE Normal [facility] ED NOTE HNO ID: [id number] Author: LJ HUNTER RN Service: ? Author Type: Registered Nurse Type: ED Notes Filed: 09/13/2023 08:47 Note Text: Bed: 11-ED Expected date: 09/13/23 Expected time: 8:27 AM Means of arrival: Comments: [place] Normal [facility] ED PROV NOTEon 09-13-2023 ED PROV NOTE Normal [facility] HIGH SENSITIVITY TROPONIN Io n 09-13-2023 Tropinin I.cardiac panel High sensitivity method 14.9 pg/mL Normal 0.0-34.0 [facility] Comment on above: Order Comment: Speci men Type: BLOOD SPECIMENOrdering Facility: [facility] Address: [address] [place], [place] [address] Performed By: #### H STROP ####[facility] LABORATORYCLIA [id number] [place] [id number] [place] HISTORY PHYSICALon HISTORY PHYSICAL Normal [facility] Magnesium SerPl-mCncon 09-12 Magnesium [Mass/Vol] 1.3 mg/dL Low 1.6-2.6 [facility] Comment on above: Order Comment: Speci men Type: BLOOD SPECIMENOrdering Facility: [facility] Address: [address] [place] [address] Performed By: #### 2 4323-8, 55444-7 ####[facility] LABORATORYCLIA [id number] [place] [id number] [facility] NURSING PROGon 09-13-2023 NURSING PROG Normal [facility] PT panel Coag (PPP)on 2023 INR Coag (PPP) [Relative time] 1.2 {INR} Normal 0.9-1.3 [facility] Comment on above: Order Comment: Speci men Type: BLOOD SPECIMENOrdering Facility: [facility] Address: [address] [place] [address] Result Comment: Serena min K Antagonist (VKA) Therapeutic Range: INR 2 to 3 (Target INR of 2.5)Note: For patients treated with VKA drugs, such as warfarin, the [place] [employer] 2012 Guideline recommends [...] al. Chest 2012, 141:7S-47SNishimeddie RA, et al. [facility] 2017, 70: 252-289 Performed By: #### 3 4528-0, 56899-1 ####[facility] LABORATORYCLIA [id number] [place] [id number] [place] PT Coag (PPP) [Time] 12.6 s Normal 9.7-13.0 [facility] Comment on above: Order Comment: Speci men Type: BLOOD SPECIMENOrdering Facility: [facility] Address: [address] [place] [id number] Performed By: #### 3 4528-0, 80735-3 ####[facility] LABORATORYCLIA [id number] [address] [place] Urinalysis complete panel (U )on 09-13-2023 Bacteria LM.HPF (Urine sed) [#/Area] Many Abnormal None Seen [facility] Comment on above: Order Comment: Speci men Type: URINE SPECIMENOrdering Facility: [facility] Address: [address] [place] [address] Performed By: #### 2 4356-8 ####[facility] LABORATORYCLIA [id number] [place] [address] [place] Bilirubin Ql (U) Negative Normal Negative [facility] Comment on above: Order Comment: Speci men Type: URINE SPECIMENOrdering Facility: [facility] Address: [address] [place] [address] Performed By: #### 2 4356-8 ####[facility] LABORATORYCLIA [id number] [address] [place] Clarity (Unsp spec) Hazy Abnormal Clear [facility] Comment on above: Order Comment: Speci men Type: URINE SPECIMENOrdering Facility: [facility] Address: [address] [place] [address] Performed By: #### 2 4356-8 ####[facility] LABORATORYCLIA [id number] [address] [place] Color (U) Yellow Normal Yellow [facility] Comment on above: Order Comment: Speci men Type: URINE SPECIMENOrdering Facility: [facility] Address: [address] [place] [address] Performed By: #### 2 4356-8 ####[facility] LABORATORYCLIA [id number] [address] [place] Epithelial cells LM.HPF (Urine sed) [#/Area] Few Normal [facility] Comment on above: Order Comment: Speci men Type: URINE SPECIMENOrdering Facility: [facility] Address: [address] [place] [address] Performed By: #### 2 4356-8 ####[facility] LABORATORYCLIA [id number] [address] [place] Glucose Test strip (U) [Mass/Vol] Negative Normal Negative [facility] Comment on above: Order Comment: Speci men Type: URINE SPECIMENOrdering Facility: [facility] Address: [address] [place] [address] Performed By: #### 2 4356-8 ####[facility] LABORATORYCLIA [id number] [place] [address] [place] Hemoglobin Ql (U) Negative Normal Negative [facility] Comment on above: Order Comment: Speci men Type: URINE SPECIMENOrdering Facility: [facility] Address: [address] [place] [address] Performed By: #### 2 4356-8 ####[facility] LABORATORYCLIA [id number] [place] [address] [place] Ketones Ql (U) Trace Abnormal Negative [facility] Comment on above: Order Comment: Speci men Type: URINE SPECIMENOrdering Facility: [facility] Address: [address] [place] [address] Performed By: #### 2 4356-8 ####[facility] LABORATORYCLIA [id number] [address] [place] Leukocyte esterase Test strip Ql (U) 3+ Abnormal Negative [facility] Comment on above: Order Comment: Speci men Type: URINE SPECIMENOrdering Facility: [facility] Address: [address] [place] [address] Performed By: #### 2 4356-8 ####[facility] LABORATORYCLIA [id number] [place] [address] [place] Nitrite Ql (U) Negative Normal Negative [facility] Comment on above: Order Comment: Speci men Type: URINE SPECIMENOrdering Facility: [facility] Address: [address] [place] [address] Performed By: #### 2 4356-8 ####[facility] LABORATORYCLIA [id number] [address] [place] pH (U) 6.0 [pH] Normal 5.0-8.0 [facility] Comment on above: Order Comment: Speci men Type: URINE SPECIMENOrdering Facility: [facility] Address: [address] [place] [address] Performed By: #### 2 4356-8 ####[facility] LABORATORYCLIA [id number] [place] [address] [place] Protein (U) [Mass/Vol] Negative Normal Negative [facility] Comment on above: Order Comment: Speci men Type: URINE SPECIMENOrdering Facility: [facility] Address: [address] [place] [address] Performed By: #### 2 4356-8 ####[facility] LABORATORYCLIA [id number] [place] [address] [place] RBC LM.HPF (Urine sed) [#/Area] 6-10 /HPF Abnormal 0-3 /HPF [facility] Comment on above: Order Comment: Speci men Type: URINE SPECIMENOrdering Facility: [facility] Address: [address] [place] [address] Performed By: #### 2 4356-8 ####[facility] LABORATORYIA [id number] [address] [place] Specific gravity (U) [Rel density] 1.012 Normal 1.005-1.030 [facility] Comment on above: Order Comment: Speci men Type: URINE SPECIMENOrdering Facility: [facility] Address: [address] [place] [address] Performed By: #### 2 4356-8 ####[facility] LABORATORYIA [id number] [address] [place] Urobilinogen Ql (U) Negative Normal Negative [facility] Comment on above: Order Comment: Speci men Type: URINE SPECIMENOrdering Facility: [facility] Address: [address] [place] [address] Performed By: #### 2 4356-8 ####[facility] LABORATORYCLIA [id number] [place] [id number] [facility] WBC LM.HPF (Urine sed) [#/Area] /[HPF] Abnormal 0-5 /HPF [facility] Comment on above: Order Comment: Speci men Type: URINE SPECIMENOrdering Facility: [facility] Address: [address] [place] [address] Performed By: #### 2 4356-8 ####[facility] LABORATORYCLIA [id number] [address] [place] Urinalysis complete pnl Uron 09-13-2023 Urinalysis complete panel (U) Normal [facility] Comment on above: Order Comment: Speci men Type: URINE SPECIMENOrdering Facility: [facility] Address: [address] [place] [address] Performed By: #### 2 4356-8 ####[facility] LABORATORYCLIA [id number] [address] [place] aPTT PPPon 09-13-2023 aPTT Coag (PPP) [Time] 33.5 s High 23.0-32.4 [facility] Comment on above: Order Comment: Speci men Type: BLOOD SPECIMENOrdering Facility: [facility] Address: [address] [place] [address] Performed By: #### 3 4528-0, 40697-5 ####[facility] LABORATORYCLIA [id number] [address] .Auto Diffon 09-03-2023 Basophil, Absolute 0.0 10 3/mcL Normal 0.0-0.3 [facility] ([place] Comment on above: Performed By: #### B MP, GFR, TSH #### [facility] [address] [place] [address] Basophils/100 WBC (Bld) 0.1 % Normal 0.0-2.5 [facility] ([place] Comment on above: Performed By: #### B MP, GFR, TSH #### [address] [address] Eosinophil, Absolute 0.3 10 3/mcL Normal 0.0-0.7 [facility] ([place]) Comment on above: Performed By: #### B MP, GFR, TSH #### [address] [address] Eosinophils/100 WBC (Bld) 4.7 % Normal 0.0-6.0 [facility] ([place]) Comment on above: Performed By: #### B MP, GFR, TSH #### [address] [address] Lymphocyte, Absolute 1.7 10 3/mcL Normal 0.9-4.3 [facility] ([place]) Comment on above: Performed By: #### B MP, GFR, TSH #### [address] [address] Lymphocytes/100 WBC (Bld) 27.4 % Normal 20.0-40.0 [facility] ([place]) Comment on above: Performed By: #### B MP, GFR, TSH #### [address] [address] Monocyte, Absolute 0.8 10 3/mcL Normal 0.1-1.4 [facility] ([place]) Comment on above: Performed By: #### B MP, GFR, TSH #### [address] [address] Monocytes/100 WBC (Bld) 11.9 % Normal 2.0-13.0 [facility] ([place]) Comment on above: Performed By: #### B MP, GFR, TSH #### [address] [address] Neutrophils/100 WBC (Bld) 55.9 % Normal 50.0-75.0 [facility] ([place]) Comment on above: Performed By: #### B MP, GFR, TSH #### [address] [address] .GFRon 09-03-2023 GFR >60 Normal [facility] ([place]) Comment on above: Result Comment: GFR [...] By: #### B MP, GFR, TSH #### [address] [address] GFR Non- >60 Normal [facility] ([place] Comment on above: Result Comment: GFR Population [...] By: #### B MP, GFR, TSH #### [address] [address] .NEUABSon 09-03-2023 Neutrophil, Absolute 3.6 10 3/mcL Normal 2.3-8.1 [facility] ([place]) Comment on above: Performed By: #### B MP, GFR, TSH #### [address] [address] B12on 09-03-2023 Cobalamin (Vitamin B12) [Mass/Vol] 453 pg/mL Normal 211-911 [facility] ([place]) Comment on above: Performed By: #### B MP, GFR, TSH #### [address] [address] BMPon 09-03-2023 BUN/Creatinine Ratio 18.3 ratio Normal 10.0-22.0 [facility] ([place]) Comment on above: Performed By: #### B MP, GFR, TSH #### [address] [address] Calcium [Mass/Vol] 10.0 mg/dL Normal 8.7-10.4 [facility] ([place]) Comment on above: Performed By: #### B MP, GFR, TSH #### [address] [address] Chloride [Moles/Vol] 99 mmol/L Normal 98-110 [facility] ([place] Comment on above: Performed By: #### B MP, GFR, TSH #### [address] [address] CO2 [Moles/Vol] 33 mmol/L High 22-32 [facility] ([place]) Comment on above: Performed By: #### B MP, GFR, TSH #### [address] [address] Creatinine [Mass/Vol] 0.82 mg/dL Normal 0.50-1.20 [facility] ([place]) Comment on above: Performed By: #### B MP, GFR, TSH #### [address] [address] Electrolyte Balance 2.0 mEq/L Low 4.0-15.0 [facility] ([place]) Comment on above: Performed By: #### B MP, GFR, TSH #### [address] [address] Glucose [Mass/Vol] 77 mg/dL Low 82-115 [facility] ([place]) Comment on above: Performed By: #### B MP, GFR, TSH #### [address] [address] Potassium [Moles/Vol] 3.6 mmol/L Normal 3.5-5.0 [facility] ([place]) Comment on above: Performed By: #### B MP, GFR, TSH #### [address] [address] Sodium [Moles/Vol] 134 mmol/L Low 136-145 [facility] ([place] Comment on above: Performed By: #### B MP, GFR, TSH #### [place] [address] Urea nitrogen [Mass/Vol] 15.0 mg/dL Normal 8.0-22.0 [facility] ([place]) Comment on above: Performed By: #### B MP, GFR, TSH #### [place] [address] CBCon 09-03-2023 Erythrocyte distribution width (RBC) [Ratio] 13.0 % Normal 11.5-15.5 [facility] ([place]) Comment on above: Performed By: #### B MP, GFR, TSH #### [place] [address] Hematocrit (Bld) [Volume fraction] 40.2 % Normal 34.0-46.0 [facility] ([place] Comment on above: Performed By: #### B MP, GFR, TSH #### [place] [id number] Hgb 13.5 G/dL Normal 12.0-16.0 [facility] ([place] Comment on above: Performed By: #### B MP, GFR, TSH #### [place] [phone] MCH (RBC) [Entitic mass] 29.1 pg Normal 27.0-33.0 [facility] ([place] Comment on above: Performed By: #### B MP, GFR, TSH #### [place] [address] MCHC 33.7 G/dL Normal 32.0-36.0 [facility] ([place]) Comment on above: Performed By: #### B MP, GFR, TSH #### [place] [phone] MCV (RBC) [Entitic vol] 86.5 fL Normal 80.0-99.0 [facility] ([place]) Comment on above: Performed By: #### B MP, GFR, TSH #### [address] [address] Platelet 106 10 3/mcL Low 150-450 [facility] ([place]) Comment on above: Performed By: #### B MP, GFR, TSH #### [address] [address] Platelet mean volume (Bld) [Entitic vol] 9.4 fL Normal 6.6-10.5 [facility] ([place]) Comment on above: Performed By: #### B MP, GFR, TSH #### [address] [address] RBC 4.64 10 6/mcL Normal 4.10-5.30 [facility] ([place] Comment on above: Performed By: #### B MP, GFR, TSH #### [address] [address] WBC 6.4 10 3/mcL Normal 4.5-10.8 [facility] ([place]) Comment on above: Performed By: #### B MP, GFR, TSH #### [address] [address] Luis Alberto 09-03-2023 Ferritin [Mass/Vol] 99.6 ng/mL Normal 8.0-252.0 [facility] ([place]) Comment on above: Performed By: #### B MP, GFR, TSH #### [address] [address] FT4on 09-03-2023 Free T4 [Mass/Vol] 1.81 ng/dL High 0.89-1.76 [facility] ([place]) Comment on above: Result Comment: No te - New Reference Range in effect 19 Performed By: #### B MP, GFR, TSH #### [address] [address] LIPIDon 09-03-2023 Cholesterol [Mass/Vol] 155 mg/dL Normal 50-199 [facility] ([place]) Comment on above: Result Comment: Chol esterol Reference Interval: Less than 200 Desirable 200-239 Borderline high risk 240 and above High risk Performed By: #### B MP, GFR, TSH #### [address] [address] Cholesterol in HDL [Mass/Vol] 32 mg/dL Low 40-59 [facility] ([place] Comment on above: Performed By: #### B MP, GFR, TSH #### [facility] [address] [place] [address] Cholesterol in LDL [Mass/Vol] 91 mg/dL Normal 0-129 [facility] ([place] Comment on above: Performed By: #### B MP, GFR, TSH #### [address] [address] Triglyceride [Mass/Vol] 159 mg/dL High 3-149 [facility] ([place]) Comment on above: Performed By: #### B MP, GFR, TSH #### [address] [address] MGon 09-03-2023 Magnesium [Mass/Vol] 1.2 mg/dL Low 1.6-2.4 [facility] ([place] Comment on above: Performed By: #### B MP, GFR, TSH #### [address] [address] .GFRon 08-01-2023 GFR >60 Normal [facility] ([place] Comment on above: Result Comment: GFR Population [...] By: #### B MP, GFR, TSH #### [address] [address] GFR Non- >60 Normal [facility] ([place] Comment on above: Result Comment: GFR Population [...] By: #### B MP, GFR, TSH #### [address] [address] BMPon 08-01-2023 BUN/Creatinine Ratio 18.8 ratio Normal 10.0-22.0 [facility] ([place]) Comment on above: Performed By: #### B MP, GFR, TSH #### [address] [address] Calcium [Mass/Vol] 10.2 mg/dL Normal 8.7-10.4 [facility] ([place] Comment on above: Performed By: #### B MP, GFR, TSH #### [address] [address] Chloride [Moles/Vol] 101 mmol/L Normal 98-110 [facility] ([place] Comment on above: Performed By: #### B MP, GFR, TSH #### [address] [address] CO2 [Moles/Vol] 33 mmol/L High 22-32 [facility] ([place] Comment on above: Performed By: #### B MP, GFR, TSH #### [address] [address] Creatinine [Mass/Vol] 0.85 mg/dL Normal 0.50-1.20 [facility] ([place] Comment on above: Performed By: #### B MP, GFR, TSH #### [address] [address] Electrolyte Balance 4.0 mEq/L Normal 4.0-15.0 [facility] ([place] Comment on above: Performed By: #### B MP, GFR, TSH #### [place] [phone] Glucose [Mass/Vol] 121 mg/dL High 82-115 [facility] ([place] Comment on above: Performed By: #### B MP, GFR, TSH #### [place] [phone] Potassium [Moles/Vol] 4.0 mmol/L Normal 3.5-5.0 [facility] ([place] Comment on above: Performed By: #### B MP, GFR, TSH #### [place] [phone] Sodium [Moles/Vol] 138 mmol/L Normal 136-145 [facility] ([place] Comment on above: Performed By: #### B MP, GFR, TSH #### [place] [address] Urea nitrogen [Mass/Vol] 16.0 mg/dL Normal 8.0-22.0 [facility] ([place] Comment on above: Performed By: #### B MP, GFR, TSH #### [place] [address] TSHon 08-01-2023 TSH 0.028 mIU/mL Low 0.550-4.780 [facility] ([place]) Comment on above: Result Comment: No te - New Reference Range in effect 19 Performed By: #### B MP, GFR, TSH #### [place] [id number] 25(OH)D3 [facility] 25-hydroxyvitamin D3 [Mass/Vol] 51.4 ng/mL Normal 30.0-100.0 [facility] Comment on above: Order Comment: Speci men Type: BLOOD SPECIMENOrdering Facility: [facility] Address: [address] [place] [address] Result Comment: Defi ciency\X09\Less than 20 ng/mLInsufficiency\X09\20 - Less than 30 ng/mLSufficiency\X09\30 - 100 ng/mL Performed By: #### 2 4323-8, 1988-05 ####[facility] LABORATORYCLIA [id number] [address] CBC panel Auto (Bld)on 06-24 Erythrocyte distribution width (RBC) [Ratio] 14.0 % Normal 11.5-15.0 [facility] Comment on above: Order Comment: Speci men Type: BLOOD SPECIMENOrdering Facility: [facility] Address: [address] [place] [address] Performed By: #### 5 8410-2 ####[facility] LABORATORYCLIA [id number] [address] Hematocrit (Bld) [Volume fraction] 45.4 % Normal 36.0-46.0 [facility] Comment on above: Order Comment: Speci men Type: BLOOD SPECIMENOrdering Facility: [facility] Address: [address] [place] [address] Performed By: #### 5 8410-2 ####[facility] LABORATORYCLIA [id number] [address] [place] Hemoglobin (Bld) [Mass/Vol] 15.2 g/dL Normal 11.5-15.5 [facility] Comment on above: Order Comment: Speci men Type: BLOOD SPECIMENOrdering Facility: [facility] Address: [address] [place] [address] Performed By: #### 5 8410-2 ####[facility] LABORATORYCLIA [id number] [address] [place] MCH (RBC) [Entitic mass] 29.9 pg Normal 26.0-34.0 [facility] Comment on above: Order Comment: Speci men Type: BLOOD SPECIMENOrdering Facility: [facility] Address: [address] [place] [address] Performed By: #### 5 8410-2 ####[facility] LABORATORYCLIA [id number] [address] [place] MCHC (RBC) [Mass/Vol] 33.5 g/dL Normal 30.5-36.0 [facility] Comment on above: Order Comment: Speci men Type: BLOOD SPECIMENOrdering Facility: [facility] Address: [address] [place] [address] Performed By: #### 5 8410-2 ####[facility] LABORATORYCLIA [id number] [place] [address] [place] MCV (RBC) [Entitic vol] 89.4 fL Normal 80.0-100.0 [facility] Comment on above: Order Comment: Speci men Type: BLOOD SPECIMENOrdering Facility: [facility] Address: [address] [place] [address] Performed By: #### 5 8410-2 ####[facility] LABORATORYCLIA [id number] [address] [place] Nucleated RBC (Bld) [#/Vol] 10*3/uL Normal <0.01 [facility] Comment on above: Order Comment: Speci men Type: BLOOD SPECIMENOrdering Facility: [facility] Address: [address] [place] [address] Performed By: #### 5 8410-2 ####[facility] LABORATORYCLIA [id number] [address] [place] Platelet mean volume (Bld) [Entitic vol] 10.5 fL Normal 9.0-12.7 [facility] Comment on above: Order Comment: Speci men Type: BLOOD SPECIMENOrdering Facility: [facility] Address: [address] [place] [address] Performed By: #### 5 8410-2 ####[facility] LABORATORYCLIA [id number] [address] [place] Platelets (Bld) [#/Vol] 106 10*3/uL Low 150-400 [facility] Comment on above: Order Comment: Speci men Type: BLOOD SPECIMENOrdering Facility: [facility] Address: [address] [place] [address] Performed By: #### 5 8410-2 ####[facility] LABORATORYCLIA [id number] [place] [id number] [facility] RBC (Bld) [#/Vol] 5.08 10*6/uL Normal 3.90-5.20 [facility] Comment on above: Order Comment: Speci men Type: BLOOD SPECIMENOrdering Facility: [facility] Address: [address] [place] [address] Performed By: #### 5 8410-2 ####[facility] LABORATORYCLIA [id number] [place] [id number] [facility] WBC (Bld) [#/Vol] 6.32 10*3/uL Normal 3.70-11.00 [facility] Comment on above: Order Comment: Speci men Type: BLOOD SPECIMENOrdering Facility: [facility] Address: [address] [place] [address] Performed By: #### 5 8410-2 ####[facility] LABORATORYCLIA [id number] [address] Comprehensive metabolic 2000 panelon 06-25-2023 Albumin [Mass/Vol] 3.9 g/dL Normal 3.2-5.0 [facility] Comment on above: Order Comment: Speci men Type: BLOOD SPECIMENOrdering Facility: [facility] Address: [address] [place] [address] Performed By: #### 2 4323-8, 1988-05 ####[facility] LABORATORYCLIA [id number] [place] [id number] [place] ALP [Catalytic activity/Vol] 129 U/L High 45-117 [facility] Comment on above: Order Comment: Speci men Type: BLOOD SPECIMENOrdering Facility: [facility] Address: [address] [place] [address] Performed By: #### 2 4323-8, 1988-05 ####[facility] LABORATORYCLIA [id number] [place] [id number] [facility] ALT [Catalytic activity/Vol] 87 U/L High 13-61 [facility] Comment on above: Order Comment: Speci men Type: BLOOD SPECIMENOrdering Facility: [facility] Address: [address] [place] [address] Result Comment: Resu lts may be falsely depressed after the administration of Sulfasalazine and/or Sulfapyridine. Performed By: #### 2 43205-15, 1988-05 ####[facility] LABORATORYCLIA [id number] [place] [id number] [place] [facility] Anion gap [Moles/Vol] 6 mmol/L Normal 5-16 [facility] Comment on above: Order Comment: Speci men Type: BLOOD SPECIMENOrdering Facility: [facility] Address: [address] [place] [address] Performed By: #### 2 43205-15, 1988-05 ####[facility] LABORATORYCLIA [id number] [address] STATES OF [facility] AST [Catalytic activity/Vol] 56 U/L High 8-34 [facility] Comment on above: Order Comment: Speci men Type: BLOOD SPECIMENOrdering Facility: [facility] Address: [address] [place] [address] Result Comment: Resu lts may be falsely depressed after the administration of Sulfasalazine and/or Sulfapyridine. Performed By: #### 2 43205-15, 1988-05 ####[facility] LABORATORYCLIA [id number] [place] [id number] [place] Bilirubin [Mass/Vol] 1.0 mg/dL Normal 0.2-1.0 [facility] Comment on above: Order Comment: Speci men Type: BLOOD SPECIMENOrdering Facility: [facility] Address: [address] [place] [address] Performed By: #### 2 43205-15, 1988-05 ####[facility] LABORATORYCLIA [id number] [place] [id number] [place] Calcium [Mass/Vol] 10.9 mg/dL High 8.5-10.5 [facility] Comment on above: Order Comment: Speci men Type: BLOOD SPECIMENOrdering Facility: [facility] Address: [address] [place] [address] Performed By: #### 2 4328, 1988-05 ####[facility] LABORATORYCLIA [id number] [place] [id number] [place] Chloride [Moles/Vol] 96 mmol/L Low 98-107 [facility] Comment on above: Order Comment: Speci men Type: BLOOD SPECIMENOrdering Facility: [facility] Address: [address] [place] [address] Performed By: #### 2 4328, 1988-05 ####[facility] LABORATORYCLIA [id number] [place] [address] [place] CO2 [Moles/Vol] 34 mmol/L High 21-32 [facility] Comment on above: Order Comment: Speci men Type: BLOOD SPECIMENOrdering Facility: [facility] Address: [address] [place] [address] Performed By: #### 2 43205-15, 1988-05 ####[facility] LABORATORYCLIA [id number] [place] [address] [place] Creatinine [Mass/Vol] 0.98 mg/dL High 0.51-0.95 [facility] Comment on above: Order Comment: Speci men Type: BLOOD SPECIMENOrdering Facility: [facility] Address: [address] [place] [address] Result Comment: Linn ents receiving either N-Acetylcysteine (NAC) or Metamizole prior to venipuncture, may have falsely depressed results. Performed By: #### 2 43238, 1988-05 ####[facility] LABORATORYCLIA [id number] [place] [address] [place] Creatinine and Glomerular filtration rate.predicted panel (S/P/Bld) 57 mL/min/1.73m??? Low >=60 [facility] Comment on above: Order Comment: Speci men Type: BLOOD SPECIMENOrdering Facility: [facility] Address: [address] [place] [address] Result Comment: Esme mated Glomerular Filtration Rate [...] reflect actual GFR. Performed By: #### 2 43205-15, 1988-05 ####[facility] LABORATORYCLIA [id number] [place] [address] [place] Glucose [Mass/Vol] 140 mg/dL High 70-100 [facility] Comment on above: Order Comment: Specsamantha smith Type: BLOOD SPECIMENOrdering Facility: [facility] Address: [address] [place] [address] Result Comment: The [place] [employer] Association (ADA) provides guidance for cutoff [...] Standards of Medical Care in Diabetes 2016, [place] [employer]. Diabetes Care. 2016.39(Suppl 1).Results may be falsely elevated after the administration of Sulfapyridine.Results may be falsely depressed after the administration of Sulfasalazine. Performed By: #### 2 4322-10, 1988-05 ####[facility] LABORATORYCLIA [id number] [place] [id number] [place] Potassium [Moles/Vol] 3.0 mmol/L Low 3.5-5.1 [facility] Comment on above: Order Comment: Jayyi luis Type: BLOOD SPECIMENOrdering Facility: [facility] Address: [address] [place] [address] Performed By: #### 2 4322-101988-05 ####[facility] LABORATORYCLIA [id number] [place] [id number] [place] Protein [Mass/Vol] 7.3 g/dL Normal 6.0-8.5 [facility] Comment on above: Order Comment: Speci men Type: BLOOD SPECIMENOrdering Facility: [facility] Address: [address] [place] [address] Performed By: #### 2 4323-8, 1988-05 ####[facility] LABORATORYCLIA [id number] [place] [id number] [place] Sodium [Moles/Vol] 136 mmol/L Normal 136-145 [facility] Comment on above: Order Comment: Speci men Type: BLOOD SPECIMENOrdering Facility: [facility] Address: [address] [place] [address] Performed By: #### 2 4328, 1988-05 ####[facility] LABORATORYCLIA [id number] [place] [address] [place] Urea nitrogen [Mass/Vol] 15 mg/dL Normal 7-26 [facility] Comment on above: Order Comment: Speci men Type: BLOOD SPECIMENOrdering Facility: [facility] Address: [address] [place] [address] Performed By: #### 2 4328, 1988-05 ####[facility] LABORATORYCLIA [id number] [place] [id number] [place] .Auto Diffon 06-20-2023 Basophil, Absolute 0.0 10 3/mcL Normal 0.0-0.3 [facility] ([place]) Comment on above: Performed By: #### A DIFF, CBC, MDW, GFR, CMP, TROPHS, PBNP, ANEU #### [address] [address] Basophils/100 WBC (Bld) 0.3 % Normal 0.0-2.5 [facility] ([place]) Comment on above: Performed By: #### A DIFF, CBC, MDW, GFR, CMP, TROPHS, PBNP, ANEU #### [address] [address] Eosinophil, Absolute 0.1 10 3/mcL Normal 0.0-0.7 [facility] ([place]) Comment on above: Performed By: #### A DIFF, CBC, MDW, GFR, CMP, TROPHS, PBNP, ANEU #### [address] [address] Eosinophils/100 WBC (Bld) 1.4 % Normal 0.0-6.0 [facility] ([place]) Comment on above: Performed By: #### A DIFF, CBC, MDW, GFR, CMP, TROPHS, PBNP, ANEU #### [address] [address] Lymphocyte, Absolute 1.8 10 3/mcL Normal 0.9-4.3 [facility] ([place]) Comment on above: Performed By: #### A DIFF, CBC, MDW, GFR, CMP, TROPHS, PBNP, ANEU #### [address] [address] Lymphocytes/100 WBC (Bld) 24.4 % Normal 20.0-40.0 [facility] ([place]) Comment on above: Performed By: #### A DIFF, CBC, MDW, GFR, CMP, TROPHS, PBNP, ANEU #### [address] [address] Monocyte, Absolute 0.9 10 3/mcL Normal 0.1-1.4 [facility] ([place]) Comment on above: Performed By: #### A DIFF, CBC, MDW, GFR, CMP, TROPHS, PBNP, ANEU #### [address] [address] Monocytes/100 WBC (Bld) 11.9 % Normal 2.0-13.0 [facility] ([place]) Comment on above: Performed By: #### A DIFF, CBC, MDW, GFR, CMP, TROPHS, PBNP, ANEU #### [address] [address] Neutrophils/100 WBC (Bld) 62.0 % Normal 50.0-75.0 [facility] ([place]) Comment on above: Performed By: #### A DIFF, CBC, MDW, GFR, CMP, TROPHS, PBNP, ANEU #### [address] [address] .GFRon 06-20-2023 GFR >60 Normal [facility] ([place]) Comment on above: Result Comment: GFR Population [...] MDW, GFR, CMP, TROPHS, PBNP, ANEU #### [address] [address] GFR Non- 57 ml/min/1.73sqm Normal [facility] ([place]) Comment on above: Result Comment: GFR Population [...] MDW, GFR, CMP, TROPHS, PBNP, ANEU #### [address] [address] .NEUABSon 06-20-2023 Neutrophil, Absolute 4.5 10 3/mcL Normal 2.3-8.1 [facility] ([place]) Comment on above: Performed By: #### A DIFF, CBC, MDW, GFR, CMP, TROPHS, PBNP, ANEU #### [address] [address] BMPon 06-20-2023 BUN/Creatinine Ratio 24.5 ratio High 10.0-22.0 [facility] ([place]) Comment on above: Performed By: #### A DIFF, CBC, MDW, GFR, CMP, TROPHS, PBNP, ANEU #### [address] [address] Calcium [Mass/Vol] 9.7 mg/dL Normal 8.7-10.4 [facility] ([place]) Comment on above: Performed By: #### A DIFF, CBC, MDW, GFR, CMP, TROPHS, PBNP, ANEU #### [address] [address] Chloride [Moles/Vol] 99 mmol/L Normal 98-110 [facility] ([place]) Comment on above: Performed By: #### A DIFF, CBC, MDW, GFR, CMP, TROPHS, PBNP, ANEU #### [address] [address] CO2 [Moles/Vol] 33 mmol/L High 22-32 [facility] ([place]) Comment on above: Performed By: #### A DIFF, CBC, MDW, GFR, CMP, TROPHS, PBNP, ANEU #### [address] [address] Creatinine [Mass/Vol] 0.94 mg/dL Normal 0.50-1.20 [facility] ([place]) Comment on above: Performed By: #### A DIFF, CBC, MDW, GFR, CMP, TROPHS, PBNP, ANEU #### [address] [address] Electrolyte Balance 4.0 mEq/L Normal 4.0-15.0 [facility] ([place]) Comment on above: Performed By: #### A DIFF, CBC, MDW, GFR, CMP, TROPHS, PBNP, ANEU #### [place] [id number] Glucose [Mass/Vol] 125 mg/dL High 82-115 [facility] ([place]) Comment on above: Performed By: #### A DIFF, CBC, MDW, GFR, CMP, TROPHS, PBNP, ANEU #### [place] [id number] Potassium [Moles/Vol] 3.4 mmol/L Low 3.5-5.0 [facility] ([place]) Comment on above: Performed By: #### A DIFF, CBC, MDW, GFR, CMP, TROPHS, PBNP, ANEU #### [place] [id number] Sodium [Moles/Vol] 136 mmol/L Normal 136-145 [facility] ([place]) Comment on above: Performed By: #### A DIFF, CBC, MDW, GFR, CMP, TROPHS, PBNP, ANEU #### [place] [id number] Urea nitrogen [Mass/Vol] 23.0 mg/dL High 8.0-22.0 [facility] ([place]) Comment on above: Performed By: #### A DIFF, CBC, MDW, GFR, CMP, TROPHS, PBNP, ANEU #### [place] [id number] CBCon 06-20-2023 Erythrocyte distribution width (RBC) [Ratio] 14.2 % Normal 11.5-15.5 [facility] ([place]) Comment on above: Performed By: #### A DIFF, CBC, MDW, GFR, CMP, TROPHS, PBNP, ANEU #### [place] [id number] Hematocrit (Bld) [Volume fraction] 42.1 % Normal 34.0-46.0 [facility] ([place]) Comment on above: Performed By: #### A DIFF, CBC, MDW, GFR, CMP, TROPHS, PBNP, ANEU #### [place] [id number] Hgb 14.2 G/dL Normal 12.0-16.0 [facility] ([place]) Comment on above: Performed By: #### A DIFF, CBC, MDW, GFR, CMP, TROPHS, PBNP, ANEU #### [place] [id number] MCH (RBC) [Entitic mass] 30.5 pg Normal 27.0-33.0 [facility] ([place]) Comment on above: Performed By: #### A DIFF, CBC, MDW, GFR, CMP, TROPHS, PBNP, ANEU #### [place] [address] MCHC 33.8 G/dL Normal 32.0-36.0 [facility] ([place]) Comment on above: Performed By: #### A DIFF, CBC, MDW, GFR, CMP, TROPHS, PBNP, ANEU #### [place] [address] MCV (RBC) [Entitic vol] 90.3 fL Normal 80.0-99.0 [facility] ([place]) Comment on above: Performed By: #### A DIFF, CBC, MDW, GFR, CMP, TROPHS, PBNP, ANEU #### [place] [address] Platelet 99 10 3/mcL Low 150-450 [facility] ([place]) Comment on above: Performed By: #### A DIFF, CBC, MDW, GFR, CMP, TROPHS, PBNP, ANEU #### [place] [address] Platelet mean volume (Bld) [Entitic vol] 7.9 fL Normal 6.6-10.5 [facility] ([place]) Comment on above: Performed By: #### A DIFF, CBC, MDW, GFR, CMP, TROPHS, PBNP, ANEU #### [place] [address] RBC 4.67 10 6/mcL Normal 4.10-5.30 [facility] ([place]) Comment on above: Performed By: #### A DIFF, CBC, MDW, GFR, CMP, TROPHS, PBNP, ANEU #### [place] [id number] [address] [place] [address] WBC 7.3 10 3/mcL Normal 4.5-10.8 [facility] ([place]) Comment on above: Performed By: #### A DIFF, CBC, MDW, GFR, CMP, TROPHS, PBNP, ANEU #### [address] [address] LABORATORYOrdered By: SYSTEM SYSTEM on 06-20-2023 Basophils [...] 0.1 103/mcL Normal 0.0 - 0.7 10^3/mcL AH Workflow SS Eosinophils/100 WBC (Bld) 1.4 % Normal 0.0 - 6.0 % AH Workflow SS Erythrocyte distribution width (RBC) [Ratio] 14.2 % Normal 11.5 - 15.5 % AH [...] 23.0 mg/dL High 8.0 - 22.0 mg/dL ADM SS Urea nitrogen/Creatinine [Mass ratio] 24.5 ratio High 10.0 - 22.0 ratio ADM SS WBC (Bld) [#/Vol] 7.3 103/mcL Normal 4.5 - 10.8 10^3/mcL Workflow SS .Auto Diffon 06-19-2023 Basophil, Absolute 0.0 10 3/mcL Normal 0.0-0.3 [facility] ([place]) Comment on above: Performed By: #### A DIFF, CBC, MDW, GFR, CMP, TROPHS, PBNP, ANEU #### [address] [address] Basophils/100 WBC (Bld) 0.1 % Normal 0.0-2.5 [facility] ([place]) Comment on above: Performed By: #### A DIFF, CBC, MDW, GFR, CMP, TROPHS, PBNP, ANEU #### [address] [address] Eosinophil, Absolute 0.0 10 3/mcL Normal 0.0-0.7 [facility] ([place]) Comment on above: Performed By: #### A DIFF, CBC, MDW, GFR, CMP, TROPHS, PBNP, ANEU #### [address] [address] Eosinophils/100 WBC (Bld) 0.1 % Normal 0.0-6.0 [facility] ([place] Comment on above: Performed By: #### A DIFF, CBC, MDW, GFR, CMP, TROPHS, PBNP, ANEU #### [address] [address] Lymphocyte, Absolute 1.1 10 3/mcL Normal 0.9-4.3 [facility] ([place]) Comment on above: Performed By: #### A DIFF, CBC, MDW, GFR, CMP, TROPHS, PBNP, ANEU #### [address] [address] Lymphocytes/100 WBC (Bld) 14.2 % Low 20.0-40.0 [facility] ([place]) Comment on above: Performed By: #### A DIFF, CBC, MDW, GFR, CMP, TROPHS, PBNP, ANEU #### [address] [address] Monocyte, Absolute 0.8 10 3/mcL Normal 0.1-1.4 [facility] ([place]) Comment on above: Performed By: #### A DIFF, CBC, MDW, GFR, CMP, TROPHS, PBNP, ANEU #### [address] [address] Monocytes/100 WBC (Bld) 10.3 % Normal 2.0-13.0 [facility] ([place]) Comment on above: Performed By: #### A DIFF, CBC, MDW, GFR, CMP, TROPHS, PBNP, ANEU #### [address] [address] Neutrophils/100 WBC (Bld) 75.3 % High 50.0-75.0 [facility] ([place] Comment on above: Performed By: #### A DIFF, CBC, MDW, GFR, CMP, TROPHS, PBNP, ANEU #### [address] [address] .GFRon 06-19-2023 GFR Non- 53 ml/min/1.73sqm Normal [facility] ([place]) Comment on above: Result Comment: GFR Population [...] MDW, GFR, CMP, TROPHS, PBNP, ANEU #### [address] [address] GFR >60 Normal [facility] ([place]) Comment on above: Result Comment: GFR Population [...] MDW, GFR, CMP, TROPHS, PBNP, ANEU #### [address] [address] .NEUABSon 06-19-2023 Neutrophil, Absolute 5.8 10 3/mcL Normal 2.3-8.1 [facility] ([place]) Comment on above: Performed By: #### A DIFF, CBC, MDW, GFR, CMP, TROPHS, PBNP, ANEU #### [address] [address] CBCon 06-19-2023 Erythrocyte distribution width (RBC) [Ratio] 14.4 % Normal 11.5-15.5 [facility] ([place]) Comment on above: Order Comment: recol lect - clotted - 06/19/2023 06:37:34 EDT Performed By: #### A DIFF, CBC, MDW, GFR, CMP, TROPHS, PBNP, ANEU #### [place] [address] Hematocrit (Bld) [Volume fraction] 41.1 % Normal 34.0-46.0 [facility] ([place]) Comment on above: Order Comment: recol lect - clotted - 06/19/2023 06:37:34 EDT Performed By: #### A DIFF, CBC, MDW, GFR, CMP, TROPHS, PBNP, ANEU #### [place] [address] Hgb 14.0 G/dL Normal 12.0-16.0 [facility] ([place]) Comment on above: Order Comment: recol lect - clotted - 06/19/2023 06:37:34 EDT Performed By: #### A DIFF, CBC, MDW, GFR, CMP, TROPHS, PBNP, ANEU #### [place] [address] MCH (RBC) [Entitic mass] 30.2 pg Normal 27.0-33.0 [facility] ([place]) Comment on above: Order Comment: recol lect - clotted - 06/19/2023 06:37:34 EDT Performed By: #### A DIFF, CBC, MDW, GFR, CMP, TROPHS, PBNP, ANEU #### [place] [address] MCHC 34.0 G/dL Normal 32.0-36.0 [facility] ([place]) Comment on above: Order Comment: recol lect - clotted - 06/19/2023 06:37:34 EDT Performed By: #### A DIFF, CBC, MDW, GFR, CMP, TROPHS, PBNP, ANEU #### [address] [address] MCV (RBC) [Entitic vol] 88.8 fL Normal 80.0-99.0 [facility] ([place]) Comment on above: Order Comment: recol lect - clotted - 06/19/2023 06:37:34 EDT Performed By: #### A DIFF, CBC, MDW, GFR, CMP, TROPHS, PBNP, ANEU #### [place] [id number] Platelet 107 10 3/mcL Low 150-450 [facility] ([place]) Comment on above: Order Comment: recol lect - clotted - 06/19/2023 06:37:34 EDT Performed By: #### A DIFF, CBC, MDW, GFR, CMP, TROPHS, PBNP, ANEU #### [place] [address] Platelet mean volume (Bld) [Entitic vol] 7.7 fL Normal 6.6-10.5 [facility] ([place] Comment on above: Order Comment: recol lect - clotted - 06/19/2023 06:37:34 EDT Performed By: #### A DIFF, CBC, MDW, GFR, CMP, TROPHS, PBNP, ANEU #### [place] [address] RBC 4.62 10 6/mcL Normal 4.10-5.30 [facility] ([place]) Comment on above: Order Comment: recol lect - clotted - 06/19/2023 06:37:34 EDT Performed By: #### A DIFF, CBC, MDW, GFR, CMP, TROPHS, PBNP, ANEU #### [place] [id number] WBC 7.7 10 3/mcL Normal 4.5-10.8 [facility] ([place]) Comment on above: Order Comment: recol lect - clotted - 06/19/2023 06:37:34 EDT Performed By: #### A DIFF, CBC, MDW, GFR, CMP, TROPHS, PBNP, ANEU #### [address] [address] CMPon 04-11-2024 Albumin Level 3.6 G/dL Normal 3.2-4.8 [facility] ([place]) Comment on above: Performed By: #### A DIFF, CBC, MDW, GFR, CMP, TROPHS, PBNP, ANEU #### [place] [address] Albumin/Globulin [Mass ratio] 1.1 {ratio} Normal 0.9-1.6 [facility] ([place]) Comment on above: Performed By: #### A DIFF, CBC, MDW, GFR, CMP, TROPHS, PBNP, ANEU #### [place] [id number] ALP [Catalytic activity/Vol] 95 U/L Normal 38-126 [facility] ([place]) Comment on above: Performed By: #### A DIFF, CBC, MDW, GFR, CMP, TROPHS, PBNP, ANEU #### [place] [id number] ALT [Catalytic activity/Vol] 15 U/L Normal 10-49 [facility] ([place]) Comment on above: Performed By: #### A DIFF, CBC, MDW, GFR, CMP, TROPHS, PBNP, ANEU #### [place] [id number] AST [Catalytic activity/Vol] 20 U/L Normal 8-34 [facility] ([place]) Comment on above: Performed By: #### A DIFF, CBC, MDW, GFR, CMP, TROPHS, PBNP, ANEU #### [place] [id number] Bili Total 0.70 mg/dL Normal 0.20-1.20 [facility] ([place]) Comment on above: Result Comment: Use of this assay is not recommended for patients undergoing treatment with eltrombopag due to the potential for falsely elevated results. Performed By: #### A DIFF, CBC, MDW, GFR, CMP, TROPHS, PBNP, ANEU #### [place] [id number] BUN/Creatinine Ratio 20.0 ratio Normal 10.0-22.0 [facility] ([place]) Comment on above: Performed By: #### A DIFF, CBC, MDW, GFR, CMP, TROPHS, PBNP, ANEU #### [address] [address] Calcium [Mass/Vol] 10.6 mg/dL High 8.7-10.4 [facility] ([place]) Comment on above: Performed By: #### A DIFF, CBC, MDW, GFR, CMP, TROPHS, PBNP, ANEU #### [address] [address] Chloride [Moles/Vol] 95 mmol/L Low 98-110 [facility] ([place]) Comment on above: Performed By: #### A DIFF, CBC, MDW, GFR, CMP, TROPHS, PBNP, ANEU #### [address] [address] CO2 [Moles/Vol] 34 mmol/L High 22-32 [facility] ([place] Comment on above: Performed By: #### A DIFF, CBC, MDW, GFR, CMP, TROPHS, PBNP, ANEU #### [address] [id number] Creatinine [Mass/Vol] 1.00 mg/dL Normal 0.50-1.20 [facility] ([place] Comment on above: Performed By: #### A DIFF, CBC, MDW, GFR, CMP, TROPHS, PBNP, ANEU #### [address] [address] Electrolyte Balance 10.0 mEq/L Normal 4.0-15.0 [facility] ([place]) Comment on above: Performed By: #### A DIFF, CBC, MDW, GFR, CMP, TROPHS, PBNP, ANEU #### [address] [address] Globulin 3.3 G/dL Normal 1.5-3.8 [facility] ([place] Comment on above: Performed By: #### A DIFF, CBC, MDW, GFR, CMP, TROPHS, PBNP, ANEU #### [address] [address] Glucose [Mass/Vol] 120 mg/dL High 82-115 [facility] ([place]) Comment on above: Performed By: #### A DIFF, CBC, MDW, GFR, CMP, TROPHS, PBNP, ANEU #### [address] [address] Potassium [Moles/Vol] 3.6 mmol/L Normal 3.5-5.0 [facility] ([place] Comment on above: Performed By: #### A DIFF, CBC, MDW, GFR, CMP, TROPHS, PBNP, ANEU #### [address] [address] Sodium [Moles/Vol] 139 mmol/L Normal 136-145 [facility] ([place] Comment on above: Performed By: #### A DIFF, CBC, MDW, GFR, CMP, TROPHS, PBNP, ANEU #### [place] [id number] Total Protein 6.9 G/dL Normal 5.7-8.2 [facility] ([place]) Comment on above: Result Comment: No te - New Reference Range in effect 19 Performed By: #### A DIFF, CBC, MDW, GFR, CMP, TROPHS, PBNP, ANEU #### [place] [address] Urea nitrogen [Mass/Vol] 20.0 mg/dL Normal 8.0-22.0 [facility] ([place] Comment on above: Performed By: #### A DIFF, CBC, MDW, GFR, CMP, TROPHS, PBNP, ANEU #### [address] [address] LABORATORYOrdered By: SYSTEM SYSTEM on 06-19-2023 Basophils [...] 3.6 G/dL Normal 3.2 - 4.8 G/dL AH ADM SS Albumin/Globulin [Mass ratio] 1.1 {ratio} [...] ng/L Male: 0-54 ng/L Testing performed on [employer] analyzer using direct chemiluminescent technology. Urea nitrogen [Mass/Vol] 20.0 mg/dL Normal 8.0 - 22.0 mg/dL ADM SS Urea nitrogen/Creatinine [Mass ratio] 20.0 ratio Normal 10.0 - 22.0 ratio ADM SS MGon 06-19-2023 Magnesium [Mass/Vol] 1.8 mg/dL Normal 1.6-2.4 [facility] ([place]) Comment on above: Performed By: #### A DIFF, CBC, MDW, GFR, CMP, TROPHS, PBNP, ANEU #### [address] [address] TROPHSon 06-19-2023 High Sensitivity Troponin I 9 ng/L Normal 0-34 [facility] ([place]) Comment on above: Result Comment: High Sensitive Troponin I Reference Ranges: Female: 0-34 ng/L Male: 0-54 ng/L Testing performed on [employer] IM analyzer using direct chemiluminescent technology. Performed By: #### A DIFF, CBC, MDW, GFR, CMP, TROPHS, PBNP, ANEU #### [address] [address] .Auto Diffon 06-18-2023 Basophil, Absolute 0.0 10 3/mcL Normal 0.0-0.3 [facility] ([place]) Comment on above: Performed By: #### A DIFF, CBC, MDW, GFR, CMP, TROPHS, PBNP, ANEU #### [address] [address] Basophils/100 WBC (Bld) 0.5 % Normal 0.0-2.5 [facility] ([place]) Comment on above: Performed By: #### A DIFF, CBC, MDW, GFR, CMP, TROPHS, PBNP, ANEU #### [address] [address] Eosinophil, Absolute 0.2 10 3/mcL Normal 0.0-0.7 [facility] ([place]) Comment on above: Performed By: #### A DIFF, CBC, MDW, GFR, CMP, TROPHS, PBNP, ANEU #### [address] [address] Eosinophils/100 WBC (Bld) 4.1 % Normal 0.0-6.0 [facility] ([place]) Comment on above: Performed By: #### A DIFF, CBC, MDW, GFR, CMP, TROPHS, PBNP, ANEU #### [address] [address] Lymphocyte, Absolute 1.5 10 3/mcL Normal 0.9-4.3 [facility] ([place]) Comment on above: Performed By: #### A DIFF, CBC, MDW, GFR, CMP, TROPHS, PBNP, ANEU #### [address] [address] Lymphocytes/100 WBC (Bld) 24.1 % Normal 20.0-40.0 [facility] ([place] Comment on above: Performed By: #### A DIFF, CBC, MDW, GFR, CMP, TROPHS, PBNP, ANEU #### [address] [address] Monocyte, Absolute 0.6 10 3/mcL Normal 0.1-1.4 [facility] ([place]) Comment on above: Performed By: #### A DIFF, CBC, MDW, GFR, CMP, TROPHS, PBNP, ANEU #### [address] [address] Monocytes/100 WBC (Bld) 10.0 % Normal 2.0-13.0 [facility] ([place] Comment on above: Performed By: #### A DIFF, CBC, MDW, GFR, CMP, TROPHS, PBNP, ANEU #### [address] [address] Neutrophils/100 WBC (Bld) 61.3 % Normal 50.0-75.0 [facility] ([place] Comment on above: Performed By: #### A DIFF, CBC, MDW, GFR, CMP, TROPHS, PBNP, ANEU #### [address] [address] .GFRon 06-18-2023 GFR 54 ml/min/1.73sqm Normal [facility] ([place]) Comment on above: Result Comment: GFR [...] MDW, GFR, CMP, TROPHS, PBNP, ANEU #### [address] [address] GFR Non- 45 ml/min/1.73sqm Normal [facility] ([place] Comment on above: Result Comment: GFR Population [...] MDW, GFR, CMP, TROPHS, PBNP, ANEU #### [place] [address] .MDWon 06-18-2023 Monocyte Distribution Width 18.33 Normal 0.00-20.00 [facility] ([place] Comment on above: Result Comment: For ED adult patients suspected of sepsis, MDW<=20.0 does not rule out sepsis or risk of sepsis Performed By: #### A DIFF, CBC, MDW, GFR, CMP, TROPHS, PBNP, ANEU #### [address] [address] .NEUABSon 06-18-2023 Neutrophil, Absolute 3.7 10 3/mcL Normal 2.3-8.1 [facility] ([place] Comment on above: Performed By: #### A DIFF, CBC, MDW, GFR, CMP, TROPHS, PBNP, ANEU #### [address] [address] BGon 06-18-2023 Base excess Calc (Bld) [Moles/Vol] 7.9 mmol/L Normal [facility] ([place] Comment on above: Performed By: #### A DIFF, CBC, MDW, GFR, CMP, TROPHS, PBNP, ANEU #### [address] [address] CO2 [Moles/Vol] 35.3 mmol/L High 22.0-30.0 [facility] ([place] Comment on above: Performed By: #### A DIFF, CBC, MDW, GFR, CMP, TROPHS, PBNP, ANEU #### [address] [address] HCO3 (Bld) [Moles/Vol] 33.7 mmol/L High 21.0-29.0 [facility] ([place] Comment on above: Performed By: #### A DIFF, CBC, MDW, GFR, CMP, TROPHS, PBNP, ANEU #### [address] [address] Oxygen (Bld) [Partial pressure] 63.6 mm[Hg] Low 74.0-108.0 [facility] ([place] Comment on above: Performed By: #### A DIFF, CBC, MDW, GFR, CMP, TROPHS, PBNP, ANEU #### [address] [address] Oxygen saturation in Blood 92.9 % Normal 92.0-96.0 [facility] ([place] Comment on above: Performed By: #### A DIFF, CBC, MDW, GFR, CMP, TROPHS, PBNP, ANEU #### [address] [address] pCO2 51.5 mmHg High 32.0-46.0 [facility] ([place] Comment on above: Performed By: #### A DIFF, CBC, MDW, GFR, CMP, TROPHS, PBNP, ANEU #### [address] [address] pH (Bld) 7.434 [pH] Normal 7.380-7.460 [facility] ([place] Comment on above: Performed By: #### A DIFF, CBC, MDW, GFR, CMP, TROPHS, PBNP, ANEU #### [address] [address] CBCon 06-18-2023 Erythrocyte distribution width (RBC) [Ratio] 14.3 % Normal 11.5-15.5 [facility] ([place] Comment on above: Performed By: #### A DIFF, CBC, MDW, GFR, CMP, TROPHS, PBNP, ANEU #### [place] [phone] Hematocrit (Bld) [Volume fraction] 44.3 % Normal 34.0-46.0 [facility] ([place] Comment on above: Performed By: #### A DIFF, CBC, MDW, GFR, CMP, TROPHS, PBNP, ANEU #### [place] [address] Hgb 15.1 G/dL Normal 12.0-16.0 [facility] ([place] Comment on above: Performed By: #### A DIFF, CBC, MDW, GFR, CMP, TROPHS, PBNP, ANEU #### [place] [address] MCH (RBC) [Entitic mass] 31.1 pg Normal 27.0-33.0 [facility] ([place] Comment on above: Performed By: #### A DIFF, CBC, MDW, GFR, CMP, TROPHS, PBNP, ANEU #### [place] [id number] MCHC 34.1 G/dL Normal 32.0-36.0 [facility] ([place] Comment on above: Performed By: #### A DIFF, CBC, MDW, GFR, CMP, TROPHS, PBNP, ANEU #### [place] [phone] MCV (RBC) [Entitic vol] 91.1 fL Normal 80.0-99.0 [facility] ([place] Comment on above: Performed By: #### A DIFF, CBC, MDW, GFR, CMP, TROPHS, PBNP, ANEU #### [place] [id number] Platelet 139 10 3/mcL Low 150-450 [facility] ([place]) Comment on above: Performed By: #### A DIFF, CBC, MDW, GFR, CMP, TROPHS, PBNP, ANEU #### [place] [address] Platelet mean volume (Bld) [Entitic vol] 8.8 fL Normal 6.6-10.5 [facility] ([place] Comment on above: Performed By: #### A DIFF, CBC, MDW, GFR, CMP, TROPHS, PBNP, ANEU #### [place] [address] RBC 4.87 10 6/mcL Normal 4.10-5.30 [facility] ([place] Comment on above: Performed By: #### A DIFF, CBC, MDW, GFR, CMP, TROPHS, PBNP, ANEU #### [place] [address] WBC 6.0 10 3/mcL Normal 4.5-10.8 [facility] ([place]) Comment on above: Performed By: #### A DIFF, CBC, MDW, GFR, CMP, TROPHS, PBNP, ANEU #### [place] [address] CMPon 06-18-2023 Albumin Level 4.1 G/dL Normal 3.2-4.8 [facility] ([place] Comment on above: Performed By: #### A DIFF, CBC, MDW, GFR, CMP, TROPHS, PBNP, ANEU #### [place] [address] Albumin/Globulin [Mass ratio] 1.2 {ratio} Normal 0.9-1.6 [facility] ([place] Comment on above: Performed By: #### A DIFF, CBC, MDW, GFR, CMP, TROPHS, PBNP, ANEU #### [place] [phone] ALP [Catalytic activity/Vol] 105 U/L Normal 38-126 [facility] ([place] Comment on above: Performed By: #### A DIFF, CBC, MDW, GFR, CMP, TROPHS, PBNP, ANEU #### [address] [address] ALT [Catalytic activity/Vol] 14 U/L Normal 10-49 [facility] ([place] Comment on above: Performed By: #### A DIFF, CBC, MDW, GFR, CMP, TROPHS, PBNP, ANEU #### [address] [address] AST [Catalytic activity/Vol] 20 U/L Normal 8-34 [facility] ([place]) Comment on above: Performed By: #### A DIFF, CBC, MDW, GFR, CMP, TROPHS, PBNP, ANEU #### [address] [address] Bili Total 0.60 mg/dL Normal 0.20-1.20 [facility] ([place]) Comment on above: Result Comment: Use of this assay is not recommended for patients undergoing treatment with eltrombopag due to the potential for falsely elevated results. Performed By: #### A DIFF, CBC, MDW, GFR, CMP, TROPHS, PBNP, ANEU #### [address] [address] BUN/Creatinine Ratio 14.8 ratio Normal 10.0-22.0 [facility] ([place]) Comment on above: Performed By: #### A DIFF, CBC, MDW, GFR, CMP, TROPHS, PBNP, ANEU #### [address] [address] Calcium [Mass/Vol] 11.1 mg/dL High 8.7-10.4 [facility] ([place] Comment on above: Performed By: #### A DIFF, CBC, MDW, GFR, CMP, TROPHS, PBNP, ANEU #### [address] [address] Chloride [Moles/Vol] 96 mmol/L Low 98-110 [facility] ([place]) Comment on above: Performed By: #### A DIFF, CBC, MDW, GFR, CMP, TROPHS, PBNP, ANEU #### [address] [address] CO2 [Moles/Vol] 37 mmol/L High 22-32 [facility] ([place] Comment on above: Performed By: #### A DIFF, CBC, MDW, GFR, CMP, TROPHS, PBNP, ANEU #### [address] [address] Creatinine [Mass/Vol] 1.15 mg/dL Normal 0.50-1.20 [facility] ([place] Comment on above: Performed By: #### A DIFF, CBC, MDW, GFR, CMP, TROPHS, PBNP, ANEU #### [address] [address] Electrolyte Balance 3.0 mEq/L Low 4.0-15.0 [facility] ([place]) Comment on above: Performed By: #### A DIFF, CBC, MDW, GFR, CMP, TROPHS, PBNP, ANEU #### [address] [address] Globulin 3.5 G/dL Normal 1.5-3.8 [facility] ([place] Comment on above: Performed By: #### A DIFF, CBC, MDW, GFR, CMP, TROPHS, PBNP, ANEU #### [address] [address] Glucose [Mass/Vol] 94 mg/dL Normal 82-115 [facility] ([place] Comment on above: Performed By: #### A DIFF, CBC, MDW, GFR, CMP, TROPHS, PBNP, ANEU #### [address] [address] Potassium [Moles/Vol] 3.5 mmol/L Normal 3.5-5.0 [facility] ([place] Comment on above: Performed By: #### A DIFF, CBC, MDW, GFR, CMP, TROPHS, PBNP, ANEU #### [address] [address] Sodium [Moles/Vol] 136 mmol/L Normal 136-145 [facility] ([place] Comment on above: Performed By: #### A DIFF, CBC, MDW, GFR, CMP, TROPHS, PBNP, ANEU #### [place] [address] Total Protein 7.6 G/dL Normal 5.7-8.2 [facility] ([place] Comment on above: Result Comment: No te - New Reference Range in effect 19 Performed By: #### A DIFF, CBC, MDW, GFR, CMP, TROPHS, PBNP, ANEU #### [place] [address] Urea nitrogen [Mass/Vol] 17.0 mg/dL Normal 8.0-22.0 [facility] ([place] Comment on above: Performed By: #### A DIFF, CBC, MDW, GFR, CMP, TROPHS, PBNP, ANEU #### [place] [address] DDHSon 06-18-2023 D-Dimer HS <200 Normal 0-230 [facility] ([place] Comment on above: Order Comment: ER is [...] MDW, GFR, CMP, TROPHS, PBNP, ANEU #### [place] [address] LABORATORYOrdered By: SYSTEM SYSTEM on 06-18-2023 TSH [...] [employer] IM analyzer using direct [employer]iluminescent technology. Albumin BCP dye [Mass/Vol] 4.1 G/dL Normal 3.2 - 4.8 G/dL AH ADM SS Albumin/Globulin [Mass ratio] 1.2 {ratio} Normal 0.9 - 1.6 ratio AH ADM SS ALP [Catalytic activity/Vol] 105 U/L Normal 38 - 126 U/L ADM SS ALT No additional P-5'-P [Catalytic activity/Vol] 14 U/L Normal 10 - 49 U/L AH ADM SS AST [Catalytic activity/Vol] 20 U/L Normal 8 - 34 U/L AH ADM SS Basophils (Bld) [#/Vol] 0.0 103/mcL [...] mg/dL High 8.7 - 10. 4 mg/dL AH ADM SS Chloride [Moles/Vol] 96 mmol/L Low [...] 24.1 % Normal 20.0 - 40.0 % Workflow SS MCH (RBC) [Entitic mass] 31.1 [...] SS UA Urobilinogen 0.2 E.U./dL Normal 0.2-1.0 Auto Urine SS LABORATORYOrdered By: Emma Durbin [...] ng/L Male: 0-54 ng/L Testing performed on [employer] IM analyzer using direct [employer]umines[employer] technology. PBNPon 06-18-2023 Natriuretic peptide B (Bld) [Mass/Vol] 123 pg/mL Normal 0-1800 [facility] ([place] Comment on above: Result Comment: NT-p roBNP results of less than 300 pg/mL effectively rules out acute congestive heart failure with 99% negative predictive value. Performed By: #### B MP, GFR, TSH #### [place] [address] TROPHSon 06-18-2023 High Sensitivity Troponin I 8 ng/L Normal 0-34 [facility] ([place] Comment on above: Result Comment: High Sensitive Troponin I Reference Ranges: Female: 0-34 ng/L Male: 0-54 ng/L Testing performed on [employer] IM analyzer using direct [employer]il[employer] technology. Performed By: #### A DIFF, CBC, MDW, GFR, CMP, TROPHS, PBNP, ANEU #### [place] [address] High Sensitivity Troponin I 8 ng/L Normal 0-34 [facility] ([place] Comment on above: Result Comment: High Sensitive Troponin I Reference Ranges: Female: 0-34 ng/L Male: 0-54 ng/L Testing performed on [employer] IM analyzer using direct [employer] technology. Performed By: #### B MP, GFR, TSH #### [place] [address] High Sensitivity Troponin I 8 ng/L Normal 0-34 [facility] ([place] Comment on above: Result Comment: High Sensitive Troponin I Reference Ranges: Female: 0-34 ng/L Male: 0-54 ng/L Testing performed on [employer] IM analyzer using direct [employer] technology. Performed By: #### A DIFF, CBC, MDW, GFR, CMP, TROPHS, PBNP, ANEU #### [place] [address] TSHon 06-18-2023 TSH 31.216 mIU/mL High 0.550-4.780 [facility] ([place] Comment on above: Order Comment: add o n lab Result Comment: No te - New Reference Range in effect 19 Performed By: #### A DIFF, CBC, MDW, GFR, CMP, TROPHS, PBNP, ANEU #### [place] [address] UAon 06-18-2023 Color (U) Yellow Normal [facility] ([place] Comment on above: Performed By: #### B MP, GFR, TSH #### [place] [address] Glucose (U) [Mass/Vol] Negative Normal Negative [facility] ([place]) Comment on above: Performed By: #### B MP, GFR, TSH #### [place] [address] Ketones Ql (U) Negative Normal Neg-Trace [facility] ([place] Comment on above: Performed By: #### B MP, GFR, TSH #### [place] [address] UA Appear Clear Normal Clear [facility] ([place] Comment on above: Performed By: #### B MP, GFR, TSH #### [address] [address] UA Blood Negative Normal Neg-Trace [facility] ([place] Comment on above: Performed By: #### B MP, GFR, TSH #### [address] [address] UA Leuk Est Negative Normal Negative [facility] ([place] Comment on above: Performed By: #### B MP, GFR, TSH #### [address] [address] UA Nitrite Negative Normal Negative [facility] ([place] Comment on above: Performed By: #### B MP, GFR, TSH #### [address] [address] UA pH 7.0 Normal 5.0 - 8.0 [facility] ([place] Comment on above: Performed By: #### B MP, GFR, TSH #### [place] [address] UA Protein Negative Normal Negative [facility] ([place] Comment on above: Performed By: #### B MP, GFR, TSH #### [place] [id number] UA Spec Grav 1.020 Normal 1.006-1.029 [facility] ([place] Comment on above: Performed By: #### B MP, GFR, TSH #### [place] [address] UA Specimen Type Clean Catch Normal [facility] ([place] Comment on above: Performed By: #### B MP, GFR, TSH #### [address] [address] UA Urobilinogen 0.2 E.U./dL Normal 0.2-1.0 [facility] ([place] Comment on above: Performed By: #### B MP, GFR, TSH #### [place] [address] Urobilinogen (U) [Mass/Vol] Negative Normal Neg-Trace [facility] ([place] Comment on above: Performed By: #### B MP, GFR, TSH #### [address] [address] XR CHEST 1 VIEWon 06-18-2023 XR CHEST [...] 06/18/2023 8:22:34 AM Ordering Provider: JACKSON Hassan [facility] ([place]) .Auto Diffon 05-23-2023 Basophil, Absolute 0.0 10 3/mcL Normal 0.0-0.3 [facility] ([place] Comment on above: Performed By: #### A DIFF, CBC, MDW, GFR, CMP, TROPHS, PBNP, ANEU #### [address] [address] Basophils/100 WBC (Bld) 0.4 % Normal 0.0-2.5 [facility] ([place] Comment on above: Performed By: #### A DIFF, CBC, MDW, GFR, CMP, TROPHS, PBNP, ANEU #### [address] [address] Eosinophil, Absolute 0.2 10 3/mcL Normal 0.0-0.7 [facility] ([place] Comment on above: Performed By: #### A DIFF, CBC, MDW, GFR, CMP, TROPHS, PBNP, ANEU #### [address] [address] Eosinophils/100 WBC (Bld) 4.2 % Normal 0.0-6.0 [facility] ([place] Comment on above: Performed By: #### A DIFF, CBC, MDW, GFR, CMP, TROPHS, PBNP, ANEU #### [address] [address] Lymphocyte, Absolute 1.5 10 3/mcL Normal 0.9-4.3 [facility] ([place]) Comment on above: Performed By: #### A DIFF, CBC, MDW, GFR, CMP, TROPHS, PBNP, ANEU #### [address] [address] Lymphocytes/100 WBC (Bld) 29.8 % Normal 20.0-40.0 [facility] ([place]) Comment on above: Performed By: #### A DIFF, CBC, MDW, GFR, CMP, TROPHS, PBNP, ANEU #### [address] [address] Monocyte, Absolute 0.7 10 3/mcL Normal 0.1-1.4 [facility] ([place]) Comment on above: Performed By: #### A DIFF, CBC, MDW, GFR, CMP, TROPHS, PBNP, ANEU #### [address] [address] Monocytes/100 WBC (Bld) 14.2 % High 2.0-13.0 [facility] ([place] Comment on above: Performed By: #### A DIFF, CBC, MDW, GFR, CMP, TROPHS, PBNP, ANEU #### [address] [address] Neutrophils/100 WBC (Bld) 51.4 % Normal 50.0-75.0 [facility] ([place]) Comment on above: Performed By: #### A DIFF, CBC, MDW, GFR, CMP, TROPHS, PBNP, ANEU #### [address] [address] .NEUABSon 05-23-2023 Neutrophil, Absolute 2.6 10 3/mcL Normal 2.3-8.1 [facility] ([place] Comment on above: Performed By: #### A DIFF, CBC, MDW, GFR, CMP, TROPHS, PBNP, ANEU #### [address] [address] CBCon 05-23-2023 Erythrocyte distribution width (RBC) [Ratio] 14.0 % Normal 11.5-15.5 [facility] ([place] Comment on above: Performed By: #### A DIFF, CBC, MDW, GFR, CMP, TROPHS, PBNP, ANEU #### [place] [address] Hematocrit (Bld) [Volume fraction] 42.1 % Normal 34.0-46.0 [facility] ([place] Comment on above: Performed By: #### A DIFF, CBC, MDW, GFR, CMP, TROPHS, PBNP, ANEU #### [place] [address] Hgb 14.2 G/dL Normal 12.0-16.0 [facility] ([place] Comment on above: Performed By: #### A DIFF, CBC, MDW, GFR, CMP, TROPHS, PBNP, ANEU #### [place] [address] MCH (RBC) [Entitic mass] 30.5 pg Normal 27.0-33.0 [facility] ([place] Comment on above: Performed By: #### A DIFF, CBC, MDW, GFR, CMP, TROPHS, PBNP, ANEU #### [place] [id number] MCHC 33.7 G/dL Normal 32.0-36.0 [facility] ([place] Comment on above: Performed By: #### A DIFF, CBC, MDW, GFR, CMP, TROPHS, PBNP, ANEU #### [place] [phone] MCV (RBC) [Entitic vol] 90.6 fL Normal 80.0-99.0 [facility] ([place] Comment on above: Performed By: #### A DIFF, CBC, MDW, GFR, CMP, TROPHS, PBNP, ANEU #### [address] [address] Platelet 105 10 3/mcL Low 150-450 [facility] ([place] Comment on above: Performed By: #### A DIFF, CBC, MDW, GFR, CMP, TROPHS, PBNP, ANEU #### [address] [address] Platelet mean volume (Bld) [Entitic vol] 8.1 fL Normal 6.6-10.5 [facility] ([place] Comment on above: Performed By: #### A DIFF, CBC, MDW, GFR, CMP, TROPHS, PBNP, ANEU #### [place] [address] RBC 4.64 10 6/mcL Normal 4.10-5.30 [facility] ([place] Comment on above: Performed By: #### A DIFF, CBC, MDW, GFR, CMP, TROPHS, PBNP, ANEU #### [place] [address] WBC 5.0 10 3/mcL Normal 4.5-10.8 [facility] ([place] Comment on above: Performed By: #### A DIFF, CBC, MDW, GFR, CMP, TROPHS, PBNP, ANEU #### [address] [address] PBNPon 05-23-2023 Natriuretic peptide B (Bld) [Mass/Vol] 106 pg/mL Normal 0-1800 [facility] ([place] Comment on above: Result Comment: NT-p roBNP results of less than 300 pg/mL effectively rules out acute congestive heart failure with 99% negative predictive value. Performed By: #### A DIFF, CBC, MDW, GFR, CMP, TROPHS, PBNP, ANEU #### [place] [address] FT4on 02-04-2023 Free T4 [Mass/Vol] 0.91 ng/dL Normal 0.89-1.76 [facility] ([place] Comment on above: Result Comment: No te - New Reference Range in effect 19 Performed By: #### B MP, GFR, TSH #### [address] [address] .Auto Diffon 02-03-2023 Basophil, Absolute 0.0 10 3/mcL Normal 0.0-0.3 [facility] ([place] Comment on above: Performed By: #### B MP, GFR, TSH #### [address] [address] Basophils/100 WBC (Bld) 0.2 % Normal 0.0-2.5 [facility] ([place] Comment on above: Performed By: #### B MP, GFR, TSH #### [address] [address] Eosinophil, Absolute 0.1 10 3/mcL Normal 0.0-0.7 [facility] ([place] Comment on above: Performed By: #### B MP, GFR, TSH #### [address] [address] Eosinophils/100 WBC (Bld) 2.4 % Normal 0.0-6.0 [facility] ([place]) Comment on above: Performed By: #### B MP, GFR, TSH #### [address] [address] Lymphocyte, Absolute 1.3 10 3/mcL Normal 0.9-4.3 [facility] ([place] Comment on above: Performed By: #### B MP, GFR, TSH #### [address] [address] Lymphocytes/100 WBC (Bld) 22.5 % Normal 20.0-40.0 [facility] ([place] Comment on above: Performed By: #### B MP, GFR, TSH #### [address] [address] Monocyte, Absolute 0.8 10 3/mcL Normal 0.1-1.4 [facility] ([place] Comment on above: Performed By: #### B MP, GFR, TSH #### [address] [address] Monocytes/100 WBC (Bld) 13.3 % High 2.0-13.0 [facility] ([place] Comment on above: Performed By: #### B MP, GFR, TSH #### [address] [address] Neutrophils/100 WBC (Bld) 61.6 % Normal 50.0-75.0 [facility] ([place]) Comment on above: Performed By: #### B MP, GFR, TSH #### [address] [address] .GFRon 02-03-2023 GFR >60 Normal [facility] ([place]) Comment on above: Result Comment: GFR Population [...] MDW, GFR, CMP, TROPHS, PBNP, ANEU #### [address] [address] GFR Non- 56 ml/min/1.73sqm Normal [facility] ([place]) Comment on above: Result Comment: GFR Population [...] MDW, GFR, CMP, TROPHS, PBNP, ANEU #### [address] [address] .NEUABSon 02-03-2023 Neutrophil, Absolute 3.6 10 3/mcL Normal 2.3-8.1 [facility] ([place] Comment on above: Performed By: #### B MP, GFR, TSH #### [address] [address] BMPon 02-03-2023 BUN/Creatinine Ratio 29.5 ratio High 10.0-22.0 [facility] ([place] Comment on above: Performed By: #### B MP, GFR, TSH #### [place] [address] Calcium [Mass/Vol] 10.3 mg/dL Normal 8.7-10.4 [facility] ([place] Comment on above: Performed By: #### B MP, GFR, TSH #### [place] [address] Chloride [Moles/Vol] 102 mmol/L Normal 98-110 [facility] ([place] Comment on above: Performed By: #### B MP, GFR, TSH #### [place] [address] CO2 [Moles/Vol] 35 mmol/L High 22-32 [facility] ([place] Comment on above: Performed By: #### B MP, GFR, TSH #### [place] [address] Creatinine [Mass/Vol] 0.95 mg/dL Normal 0.50-1.20 [facility] ([place] Comment on above: Performed By: #### B MP, GFR, TSH #### [place] [address] Electrolyte Balance 1.0 mEq/L Low 4.0-15.0 [facility] ([place] Comment on above: Performed By: #### B MP, GFR, TSH #### [place] [address] Glucose [Mass/Vol] 103 mg/dL Normal 82-115 [facility] ([place] Comment on above: Performed By: #### B MP, GFR, TSH #### [place] [id number] Potassium [Moles/Vol] 4.0 mmol/L Normal 3.5-5.0 [facility] ([place] Comment on above: Result Comment: Spec imen slightly hemolyzed. Performed By: #### B MP, GFR, TSH #### [address] [address] Sodium [Moles/Vol] 138 mmol/L Normal 136-145 [facility] ([place] Comment on above: Performed By: #### B MP, GFR, TSH #### [place] [id number] Urea nitrogen [Mass/Vol] 28.0 mg/dL High 8.0-22.0 [facility] ([place] Comment on above: Performed By: #### B MP, GFR, TSH #### [address] [address] CBCon 02-03-2023 Erythrocyte distribution width (RBC) [Ratio] 14.1 % Normal 11.5-15.5 [facility] ([place] Comment on above: Performed By: #### B MP, GFR, TSH #### [address] [address] Hematocrit (Bld) [Volume fraction] 42.9 % Normal 34.0-46.0 [facility] ([place] Comment on above: Performed By: #### B MP, GFR, TSH #### [address] [address] Hgb 14.1 G/dL Normal 12.0-16.0 [facility] ([place] Comment on above: Performed By: #### B MP, GFR, TSH #### [address] [address] MCH (RBC) [Entitic mass] 31.0 pg Normal 27.0-33.0 [facility] ([place] Comment on above: Performed By: #### B MP, GFR, TSH #### [place] [address] MCHC 32.9 G/dL Normal 32.0-36.0 [facility] ([place] Comment on above: Performed By: #### B MP, GFR, TSH #### [place] [address] MCV (RBC) [Entitic vol] 94.2 fL Normal 80.0-99.0 [facility] ([place]) Comment on above: Performed By: #### B MP, GFR, TSH #### [place] [address] Platelet 111 10 3/mcL Low 150-450 [facility] ([place] Comment on above: Performed By: #### B MP, GFR, TSH #### [place] [address] Platelet mean volume (Bld) [Entitic vol] 8.8 fL Normal 6.6-10.5 [facility] ([place] Comment on above: Performed By: #### B MP, GFR, TSH #### [place] [address] RBC 4.56 10 6/mcL Normal 4.10-5.30 [facility] ([place] Comment on above: Performed By: #### B MP, GFR, TSH #### [place] [address] WBC 5.8 10 3/mcL Normal 4.5-10.8 [facility] ([place] Comment on above: Performed By: #### B MP, GFR, TSH #### [place] [address] TSHon 02-03-2023 TSH 7.106 mIU/mL High 0.550-4.780 [facility] ([place]) Comment on above: Result Comment: No te - New Reference Range in effect 19 Performed By: #### B MP, GFR, TSH #### [place] [phone] BLOOD BANK COMMENTon 023 BLOOD BANK COMMENT See Comment Normal [facility] Comment on above: Order Comment: Speci men Type: BLOOD SPECIMENOrdering Facility: [facility] Address: [address] [place] [address] Result Comment: SEAN eli, notified Wilmer at 1740 on 12/31/22. Performed By: #### L [id number], TSCR ####[facility] BLOOD BANKCLIA [id number] [place] [address] [place] CBC panel Auto (Bld)on 12-31 Erythrocyte distribution width (RBC) [Ratio] 13.8 % Normal 11.5-15.0 [facility] Comment on above: Order Comment: Speci men Type: BLOOD SPECIMENOrdering Facility: [facility] Address: [address] [place] [address] Performed By: #### 5 8410-2 ####[facility] LABORATORYCLIA [id number] [place] [address] [place] Hematocrit (Bld) [Volume fraction] 39.5 % Normal 36.0-46.0 [facility] Comment on above: Order Comment: Speci men Type: BLOOD SPECIMENOrdering Facility: [facility] Address: [address] [place] [address] Performed By: #### 5 8410-2 ####[facility] LABORATORYCLIA [id number] [place] [address] [place] Hemoglobin (Bld) [Mass/Vol] 13.1 g/dL Normal 11.5-15.5 [facility] Comment on above: Order Comment: Speci men Type: BLOOD SPECIMENOrdering Facility: [facility] Address: [address] [place] [address] Performed By: #### 5 8410-2 ####[facility] LABORATORYCLIA [id number] [place] [address] [place] MCH (RBC) [Entitic mass] 30.8 pg Normal 26.0-34.0 [facility] Comment on above: Order Comment: Speci men Type: BLOOD SPECIMENOrdering Facility: [facility] Address: [address] [place] [address] Performed By: #### 5 8410-2 ####[facility] LABORATORYCLIA [id number] [place] [address] [place] MCHC (RBC) [Mass/Vol] 33.2 g/dL Normal 30.5-36.0 [facility] Comment on above: Order Comment: Speci men Type: BLOOD SPECIMENOrdering Facility: [facility] Address: [address] [place] [address] Performed By: #### 5 8410-2 ####[facility] LABORATORYCLIA [id number] [place] [address] [place] MCV (RBC) [Entitic vol] 92.9 fL Normal 80.0-100.0 [facility] Comment on above: Order Comment: Speci men Type: BLOOD SPECIMENOrdering Facility: [facility] Address: [address] [place] [address] Performed By: #### 5 8410-2 ####[facility] LABORATORYCLIA [id number] [place] [address] [place] Nucleated RBC (Bld) [#/Vol] 10*3/uL Normal <0.01 [facility] Comment on above: Order Comment: Speci men Type: BLOOD SPECIMENOrdering Facility: [facility] Address: [address] [place] [address] Performed By: #### 5 8410-2 ####[facility] LABORATORYCLIA [id number] [place] [address] [place] Platelet mean volume (Bld) [Entitic vol] 9.4 fL Normal 9.0-12.7 [facility] Comment on above: Order Comment: Speci men Type: BLOOD SPECIMENOrdering Facility: [facility] Address: [address] [place] [address] Performed By: #### 5 8410-2 ####[facility] LABORATORYCLIA [id number] [place] [address] [place] Platelets (Bld) [#/Vol] 97 10*3/uL Low 150-400 [facility] Comment on above: Order Comment: Speci men Type: BLOOD SPECIMENOrdering Facility: [facility] Address: [address] [place] [address] Result Comment: No c lot detected. Performed By: #### 5 8410-2 ####[facility] LABORATORYCLIA [id number] [address] OF [facility] RBC (Bld) [#/Vol] 4.25 10*6/uL Normal 3.90-5.20 [facility] Comment on above: Order Comment: Speci men Type: BLOOD SPECIMENOrdering Facility: [facility] Address: [address] [place] [address] Performed By: #### 5 8410-2 ####[facility] LABORATORYCLIA [id number] [address] OF [facility] WBC (Bld) [#/Vol] 5.97 10*3/uL Normal 3.70-11.00 [facility] Comment on above: Order Comment: Speci men Type: BLOOD SPECIMENOrdering Facility: [facility] Address: [address] [place] [address] Performed By: #### 5 8410-2 ####[facility] LABORATORYCLIA [id number] [address] OF [facility] Comprehensive metabolic 2000 panelon 12-31-2022 Albumin [Mass/Vol] 3.7 g/dL Normal 3.2-5.0 [facility] Comment on above: Order Comment: Speci men Type: BLOOD SPECIMENOrdering Facility: [facility] Address: [address] [place] [address] Performed By: #### 2 4323-8 ####[facility] LABORATORYCLIA [id number] [address] [facility] ALP [Catalytic activity/Vol] 81 U/L Normal 45-117 [facility] Comment on above: Order Comment: Speci men Type: BLOOD SPECIMENOrdering Facility: [facility] Address: [address] [place] [address] Performed By: #### 2 4323-8 ####[facility] LABORATORYCLIA [id number] [place] [id number] [place] ALT [Catalytic activity/Vol] 16 U/L Normal 13-61 [facility] Comment on above: Order Comment: Speci men Type: BLOOD SPECIMENOrdering Facility: [facility] Address: [address] [place] [address] Result Comment: Resu lts may be falsely depressed after the administration of Sulfasalazine and/or Sulfapyridine. Performed By: #### 2 4323-8 ####[facility] LABORATORYCLIA [id number] [place] [address] [place] Anion gap [Moles/Vol] 3 mmol/L Low 5-16 [facility] Comment on above: Order Comment: Speci men Type: BLOOD SPECIMENOrdering Facility: [facility] Address: [address] [place] [address] Performed By: #### 2 4323-8 ####[facility] LABORATORYCLIA [id number] [place] [address] [place] AST [Catalytic activity/Vol] 18 U/L Normal 8-34 [facility] Comment on above: Order Comment: Speci men Type: BLOOD SPECIMENOrdering Facility: [facility] Address: [address] [place] [address] Result Comment: Resu lts may be falsely depressed after the administration of Sulfasalazine and/or Sulfapyridine. Performed By: #### 2 4323-8 ####[facility] LABORATORYCLIA [id number] [place] [address] [place] Bilirubin [Mass/Vol] 0.8 mg/dL Normal 0.2-1.0 [facility] Comment on above: Order Comment: Speci men Type: BLOOD SPECIMENOrdering Facility: [facility] Address: [address] [place] [address] Performed By: #### 2 4323-8 ####[facility] LABORATORYCLIA [id number] [place] [id number] [place] Calcium [Mass/Vol] 9.8 mg/dL Normal 8.5-10.5 [facility] Comment on above: Order Comment: Speci men Type: BLOOD SPECIMENOrdering Facility: [facility] Address: [address] [place] [address] Performed By: #### 2 4323-8 ####[facility] LABORATORYCLIA [id number] [place] [id number] [place] Chloride [Moles/Vol] 102 mmol/L Normal 98-107 [facility] Comment on above: Order Comment: Speci men Type: BLOOD SPECIMENOrdering Facility: [facility] Address: [address] [place] [address] Performed By: #### 2 4323-8 ####[facility] LABORATORYCLIA [id number] [place] [address] [place] CO2 [Moles/Vol] 36 mmol/L High 21-32 [facility] Comment on above: Order Comment: Speci men Type: BLOOD SPECIMENOrdering Facility: [facility] Address: [address] [place] [address] Performed By: #### 2 4323-8 ####[facility] LABORATORYCLIA [id number] [place] [address] [place] Creatinine [Mass/Vol] 0.82 mg/dL Normal 0.51-0.95 [facility] Comment on above: Order Comment: Speci men Type: BLOOD SPECIMENOrdering Facility: [facility] Address: [address] [place] [address] Result Comment: Linn ents receiving either N-Acetylcysteine (NAC) or Metamizole prior to venipuncture, may have falsely depressed results. Performed By: #### 2 4323-8 ####[facility] LABORATORYCLIA [id number] [place] [address] [place] Creatinine and Glomerular filtration rate.predicted panel (S/P/Bld) 71 mL/min/1.73m??? Normal >=60 [facility] Comment on above: Order Comment: Speci men Type: BLOOD SPECIMENOrdering Facility: [facility] Address: [address] [place] [address] Result Comment: Esme mated Glomerular Filtration Rate [...] actual GFR. Performed By: #### 2 4323-8 ####[facility] LABORATORYCLIA [id number] [place] [address] [place] Glucose [Mass/Vol] 88 mg/dL Normal 70-100 [facility] Comment on above: Order Comment: Speci men Type: BLOOD SPECIMENOrdering Facility: [facility] Address: [address] [place] [address] Result Comment: The [place] [employer] (ADA) provides guidance for cutoff [...] Standards of Medical Care in Diabetes 2016, [place] [employer]. Diabetes Care. 2016.39(Suppl 1).Results may be falsely elevated after the administration of Sulfapyridine.Results may be falsely depressed after the administration of Sulfasalazine. Performed By: #### 2 4323-8 ####[facility] LABORATORYCLIA [id number] [place] [address] [place] Potassium [Moles/Vol] 3.9 mmol/L Normal 3.5-5.1 [facility] Comment on above: Order Comment: Speci men Type: BLOOD SPECIMENOrdering Facility: [facility] Address: [address] [place] [address] Performed By: #### 2 4323-8 ####[facility] LABORATORYCLIA [id number] [place] [address] [place] Protein [Mass/Vol] 6.7 g/dL Normal 6.0-8.5 [facility] Comment on above: Order Comment: Speci men Type: BLOOD SPECIMENOrdering Facility: [facility] Address: [address] [place] [address] Performed By: #### 2 4323-8 ####[facility] LABORATORYCLIA [id number] [place] [id number] [place] Sodium [Moles/Vol] 141 mmol/L Normal 136-145 [facility] Comment on above: Order Comment: Speci men Type: BLOOD SPECIMENOrdering Facility: [facility] Address: [address] [place] [address] Performed By: #### 2 4323-8 ####[facility] LABORATORYCLIA [id number] [place] [address] [place] Urea nitrogen [Mass/Vol] 19 mg/dL Normal 7-26 [facility] Comment on above: Order Comment: Speci men Type: BLOOD SPECIMENOrdering Facility: [facility] Address: [address] [place] [address] Performed By: #### 2 4323-8 ####[facility] LABORATORYCLIA [id number] [place] [address] [place] ECG COMPLETEon 12-31-2022 ECG COMPLETE Normal [facility] ED NOTEon 12-31-2022 ED NOTE HNO ID: [id number] Author: Danelle Goff RN Service: ? Author Type: Registered Nurse Type: ED Notes Filed: 12/31/2022 7:43 PM Note Text: Ambulated in hallway with pulse ox on room air. Pulse ox remains between 88-90%, heart rate 84. Normal [facility] ED NOTE HNO ID: [id number] Author: Venkat Pfeiffer RN Service: ? Author Type: Registered Nurse Type: ED Notes Filed: 12/31/2022 3:42 PM Note Text: Bed: 27-ED Expected date: Expected time: Means of arrival: Comments: triage Normal [facility] ED NOTE Normal [facility] ED PROV NOTEon 12-31-2022 ED PROV NOTE Normal [facility] Hemoccult Stl Qlon 3 Hemoglobin.gastrointesti nal Ql (Stl) Negative Normal [facility] Comment on above: Performed By: #### 2 335-8 ####[facility] LABORATORYCLIA [id number] [place] [id number] [place] PT panel Coag (PPP)on 2022 INR Coag (PPP) [Relative time] 1.1 {INR} Normal 0.9-1.3 [facility] Comment on above: Order Comment: Brady smith Type: BLOOD SPECIMENOrdering Facility: [facility] Address: [address] [place] [address] Result Comment: Serena min K Antagonist (VKA) Therapeutic Range: INR 2 to 3 (Target INR of 2.5)Note: For patients treated with VKA drugs, such as warfarin, the [place] [employer] 2012 Guideline recommends [...] of 3).Josue JONES, et al. Chest 2012, 141:7S-47SEfra RA, et al. [facility] 2017, 70: 252-289 Performed By: #### 3 4528-0, 44290-4 ####[facility] LABORATORYCLIA [id number] [place] [address] [place] PT Coag (PPP) [Time] 11.4 s Normal 9.7-13.0 [facility] Comment on above: Order Comment: Jayyi men Type: BLOOD SPECIMENOrdering Facility: [facility] Address: [address] [place] [address] Performed By: #### 3 4528-0, 86784-5 ####[facility] LABORATORYCLIA [id number] [address] TYPE + SCREENon 12-31-2022 ABO O Normal [facility] Comment on above: Order Comment: Speci men Type: BLOOD SPECIMENOrdering Facility: [facility] Address: [address] [place] [address] Performed By: #### L [id number], TSCR ####[facility] BLOOD BANKCLIA [id number] [address] OF [facility] HISTORICAL AB SCR STATUS Negative [facility] Comment on above: Order Comment: Speci men Type: BLOOD SPECIMENOrdering Facility: [facility] Address: [address] [place] [address] Performed By: #### L [id number], TSCR ####[facility] BLOOD BANKCLIA [id number] [place] [address] [place] Rh Nom (Bld) Negative [facility] Comment on above: Order Comment: Speci men Type: BLOOD SPECIMENOrdering Facility: [facility] Address: [address] [place] [address] Performed By: #### L [id number], TSCR ####[facility] BLOOD BANKCLIA [id number] [place] [address] [place] [facility] TYPE AND SCREEN EXPIRATION 01/03/2023 23:59 [facility] Comment on above: Order Comment: Speci men Type: BLOOD SPECIMENOrdering Facility: [facility] Address: [address] [place] [address] Performed By: #### L [id number], TSCR ####[facility] BLOOD BANKCLIA [id number] [place] [address] [place] Urinalysis complete panel (U )on 12-31-2022 Bacteria LM.HPF (Urine sed) [#/Area] Rare Abnormal None Seen [facility] Comment on above: Order Comment: Speci men Type: URINE SPECIMENOrdering Facility: [facility] Address: [address] [place] [address] Performed By: #### 2 4356-8 ####[facility] LABORATORYCLIA [id number] [place] [address] [place] Bilirubin Ql (U) Negative Normal Negative [facility] Comment on above: Order Comment: Speci men Type: URINE SPECIMENOrdering Facility: [facility] Address: [address] [place] [address] Performed By: #### 2 4356-8 ####[facility] LABORATORYCLIA [id number] [address] Clarity (Unsp spec) Clear Normal Clear [facility] Comment on above: Order Comment: Speci men Type: URINE SPECIMENOrdering Facility: [facility] Address: [address] [place] [address] Performed By: #### 2 4356-8 ####[facility] LABORATORYCLIA [id number] [address] [place] Color (U) Straw Normal Yellow [facility] Comment on above: Order Comment: Speci men Type: URINE SPECIMENOrdering Facility: [facility] Address: [address] [place] [address] Performed By: #### 2 4356-8 ####[facility] LABORATORYCLIA [id number] [address] [place] Epithelial cells LM.HPF (Urine sed) [#/Area] Few Normal [facility] Comment on above: Order Comment: Speci men Type: URINE SPECIMENOrdering Facility: [facility] Address: [address] [place] [address] Performed By: #### 2 4356-8 ####[facility] LABORATORYCLIA [id number] [address] [place] Glucose Test strip (U) [Mass/Vol] Negative Normal Negative [facility] Comment on above: Order Comment: Speci men Type: URINE SPECIMENOrdering Facility: [facility] Address: [address] [place] [address] Performed By: #### 2 4356-8 ####[facility] LABORATORYCLIA [id number] [address] [place] Hemoglobin Ql (U) Negative Normal Negative [facility] Comment on above: Order Comment: Speci men Type: URINE SPECIMENOrdering Facility: [facility] Address: [address] [place] [address] Performed By: #### 2 4356-8 ####[facility] LABORATORYCLIA [id number] [place] [address] [place] Ketones Ql (U) Negative Normal Negative [facility] Comment on above: Order Comment: Speci men Type: URINE SPECIMENOrdering Facility: [facility] Address: [address] [place] [address] Performed By: #### 2 4356-8 ####[facility] LABORATORYCLIA [id number] [address] [place] Leukocyte esterase Test strip Ql (U) Negative Normal Negative [facility] Comment on above: Order Comment: Speci men Type: URINE SPECIMENOrdering Facility: [facility] Address: [address] [place] [address] Performed By: #### 2 4356-8 ####[facility] LABORATORYCLIA [id number] [address] [place] Nitrite Ql (U) Negative Normal Negative [facility] Comment on above: Order Comment: Speci men Type: URINE SPECIMENOrdering Facility: [facility] Address: [address] [place] [address] Performed By: #### 2 4356-8 ####[facility] LABORATORYCLIA [id number] [address] [place] pH (U) 8.0 [pH] Normal 5.0-8.0 [facility] Comment on above: Order Comment: Speci men Type: URINE SPECIMENOrdering Facility: [facility] Address: [address] [place] [address] Performed By: #### 2 4356-8 ####[facility] LABORATORYCLIA [id number] [place] [address] [place] Protein (U) [Mass/Vol] Negative Normal Negative [facility] Comment on above: Order Comment: Speci men Type: URINE SPECIMENOrdering Facility: [facility] Address: [address] [place] [address] Performed By: #### 2 4356-8 ####[facility] LABORATORYCLIA [id number] [place] [address] [place] RBC LM.HPF (Urine sed) [#/Area] 0-3 /HPF Normal 0-3 /HPF [facility] Comment on above: Order Comment: Speci men Type: URINE SPECIMENOrdering Facility: [facility] Address: [address] [place] [address] Performed By: #### 2 4356-8 ####[facility] LABORATORYCLIA [id number] [address] [place] Specific gravity (U) [Rel density] 1.012 Normal 1.005-1.030 [facility] Comment on above: Order Comment: Speci men Type: URINE SPECIMENOrdering Facility: [facility] Address: [address] [place] [address] Performed By: #### 2 4356-8 ####[facility] LABORATORYCLIA [id number] [address] [place] Urobilinogen Ql (U) Negative Normal Negative [facility] Comment on above: Order Comment: Speci men Type: URINE SPECIMENOrdering Facility: [facility] Address: [address] [place] [address] Performed By: #### 2 4356-8 ####[facility] LABORATORYCLIA [id number] [address] [place] WBC LM.HPF (Urine sed) [#/Area] 0-5 /HPF Normal 0-5 /HPF [facility] Comment on above: Order Comment: Speci men Type: URINE SPECIMENOrdering Facility: [facility] Address: [address] [place] [address] Performed By: #### 2 4356-8 ####[facility] LABORATORYCLIA [id number] [place] [id number] [facility] [place] XR CHEST 1V FRONTAL PORTon 1 XR CHEST 1V FRONTAL PORT Normal [facility] aPTT PPPon 12-31-2022 aPTT Coag (PPP) [Time] 28.6 s Normal 23.0-32.4 [facility] Comment on above: Order Comment: Speci men Type: BLOOD SPECIMENOrdering Facility: [facility] Address: [address] [place] [address] Performed By: #### 3 4528-0, 55325-1 ####[facility] LABORATORYCLIA [id number] [address] LABORATORYOrdered By: SYSTEM SYSTEM on 02-16-2022 [...] 4.3 10^3/mcL Workflow SS Lymphocytes/100 WBC (Bld) 21.6 % Invalid Interpretation Code 20.0 - 40.0 % Workflow SS Magnesium [Mass/Vol] 1.9 mg/dL Invalid [...] 1.4 10^3/mcL Workflow SS Monocytes/100 WBC (Bld) 13.4 % Invalid Interpretation Code 2.0 - 13.0 % AH Workflow SS Neutrophils (Bld) [#/Vol] 4.6 103/mcL Invalid Interpretation Code 2.3 - 8.1 10^3/mcL Workflow SS Neutrophils/100 WBC (Bld) 64.8 % Invalid Interpretation Code 50.0 - 75.0 % Workflow SS Platelet mean volume (Bld) [Entitic vol] 8.5 fL Invalid Interpretation Code 6.6 - 10.5 fL AH Workflow SS Platelets (Bld) [#/Vol] 104 103/mcL Invalid Interpretation Code 150 - 450 10^3/mcL Workflow SS Potassium [Moles/Vol] 3.3 mmol/L Invalid [...] % AH Workflow SS Hemoglobin (Bld) [Mass/Vol] 13.4 G/dL Invalid Interpretation Code 12.0 - 16.0 G/dL AH Workflow SS Lymphocytes (Bld) [#/Vol] 1.2 103/mcL Invalid Interpretation Code 0.9 - 4.3 10^3/mcL AH Workflow SS Lymphocytes/100 WBC (Bld) 13.0 % [...] 10^3/mcL AH Workflow SS Lymphocytes/100 WBC (Bld) 10.1 % [...] 1.6 - 2.4 mg/dL AH ADM SS Phosphate [Mass/Vol] 1.7 mg/dL Invalid [...] serogroups and species may also cause disease. [facility] Work Phone: Streptococcus Pneumoniae Urine Antig Streptococcus pneumoniae antigen Positive for pneumococcal pneumonia. [facility] Work Phone: Comment on above: This [...] Comment on above: Result Comment: Richard bob [address] [place], [place] [address] Perf Loc - POCT Tested at AM Invalid Interpretation Code AM [employer]cor Subsection Comment on above: Result Comment: Richard paulino [address] [place], [place] [address] Perf Loc - POCT Tested at AM Invalid Interpretation Code AM [employer] Subsection Comment on above: Result Comment: Richard bob [address] [place] [address] LABORATORYOrdered By: Toi Blackburn on 02-12-2022 Performing [...] RNA LYDIA+probe Ql (Unsp spec) Done Charted [facility] DISCH.SUMon 08-29-[address] Date of : [address] [id number] Unit Number: [id number] Discharge Summary Patient Status: ADM Liang Attending [...] or rash noticed. Labs/Imaging Lab 72hr (CBC/BMP [facility]) 08/28/204: SARS-CoV-2 (PCR) NEGATIVE 08/28/201941: Troponin I 3.1 [...] (Myrbetriq) 25 MG TAB.ER.24H 25 MILLIGRAM ORAL [place]-3 Fatty Acids/Fish Oil* (Fish Oil 1,000 MG Softgel*) 1 EACH CAPSULE 1 CAPSULE ORAL EVERY DAY Flaxseed Oil (Flax Oil) 1,000 MG CAPSULE 1,000 MILLIGRAM ORAL Cholecalciferol (Vitamin D3)* (Vitamin D3 1000 Unit tab*) 25 MCG TABLET 1,000 UNIT ORAL EVERY DAY [place]-3 Fatty Acids/Fish Oil* (Fish Oil 1,000 MG [...] AT BEDTIME Bacillus Coagulans (Probiotic) 1 EACH CAPSULE. 1 EACH ORAL Baclofen* (Lioresal 10MG Tab*) 10 MG TABLET 10 MILLIGRAM ORAL 3 TIMES DAILY Aspirin EC* (Ecotrin 325MG Tab*) 325 MG TABLET. 325 MILLIGRAM ORAL EVERY DAY Acetaminophen* (Tylenol 500MG Tab*) 500 MG T (more content not included)... Normal [facility] Radhika Martinez 08-29-2020 EMERGENCY PHYSICIAN REPORT This is a preliminary report only, as the practitioner review and authentication has not occurred. Normal [facility] ER PHYSICIAN ASSESSMENT RECORDS : FlexChartData Event Time: 08/28/2020 23:10 Status: Signed [facility] Krish Peralta [[id number]] Attending Physician 79 / F / 1940 Chart (V2b) Chart created at 08/28/2020 22:33 by Bill Philip Chart closed at 08/28/2020 22:38 Entry in Emergency Department at 08/28/2020 18:16 Patient Name: Krish Peralta Record Number: [id number] Date: 08/28/2020 22:33 Entered Department at: 08/28/2020 [...] she had her Covid shots months ago. [facility] PATIENT NAME: KRISH PERALTA [facility] [address] MEDICAL REC #: [id number] [place] [address] EMERGENCY DEPARTMENT REPORT EMERGENCY DEPARTMENT PHYSICIAN She [...] Lids Normal; . Oropharynx / Throat: Normal [facility]: [id number] [place] [address] EMERGENCY DEPARTMENT REPORT EMERGENCY DEPARTMENT PHYSICIAN Pharynx. [...] 65 bpm. Rate NormalRhythm Sinus RhythmAxis Left [place] DeviationIntervals NormalQRS NormalST/T Normal Interpretation: Sinus rhythm Comparison: No old Cardiogram available for comparison Imaging Study Obtained: CHES (more content not included)... Normal [facility] HP.IMS.ADMon 08-29-2020 Admission-H&P Normal [facility] HP.IMS.ADM [facility] Patient Name: KRISH PERALTA [address] Date of : [address] [address] Unit Number: [id number] Admission-HandP Patient Status: ADM Liang Attending Doctor: Yessy Alatorre DO Service Date: 08/28/20 3791 History of Present Illness Chief Complaint/Present Illness: [...] Laboratory Tests 08/28 08/28 08/28 2224 1942 1942 Chemistry Sodium (136 - 145 [...] has end (more content not included)... Normal [facility] [id number] 08-29-2020 SARS-CoV-2 (COVID-19) RNA LYDIA+probe Ql (Unsp spec) Negative Invalid Interpretation Code Negative [facility] Comment on above: Order Comment: Chandni Paul Result Comment: [facility] TO Linda JIMENEZ AT 2341 08/28/20 BY EMILY REDDING Negative results do not preclude SARS-CoV-2 infection and should not be used as the sole basis for treatment or other patient management decisions. Negative results must be combined with clinical observation, patient history, and epidemiological information. This test was performed by PCR. Performed By: #### L [id number] #### [facility] [place] [place] [address] BMPon 08-28-2020 Anion gap [Moles/Vol] 4 mmol/L Low 5-16 [facility] Comment on above: Order Comment: Campu s: M Performed By: #### L 500.34470, L500.44605 #### [facility] LABOR[facility]ORY [address] [place] [address] Calcium [Mass/Vol] 10.4 mg/dL Normal 8.5-10.5 [facility] Comment on above: Order Comment: Campu s: M Result Comment: NOTE NEW NORMAL RANGE DUE TO REAGENT CHANGE Performed By: #### L 500.76958, L500.88403 #### [facility] [address] [place] [address] Chloride [Moles/Vol] 103 mmol/L Normal 98-107 [facility] Comment on above: Order Comment: Campu s: M Performed By: #### L 500.94325, L500.20803 #### [facility] [address] [place] [address] CO2 [Moles/Vol] 32.0 mmol/L Normal 21-32 [facility] Comment on above: Order Comment: Campu s: M Performed By: #### L 500.87932, L500.27548 #### [facility] [address] [place], [place] [address] Creatinine [Mass/Vol] 0.75 mg/dL Normal 0.510-0.950 [facility] Comment on above: Order Comment: Campu s: M Result Comment: Linn ents receiving either N-Acetylcysteine (NAC) or Metamizole prior to venipuncture, may have falsely depressed results. Performed By: #### L 500.01870, L500.13310 #### [facility] [address] [place] [address] Glucose [Mass/Vol] 93 mg/dL Normal 70-100 [facility] Comment on above: Order Comment: Campu s: M Result Comment: 70-1 00- Normal Fasting; 100-125 Impaired Fasting; greater than 126 on more than one result- Diabetes. ADA guidelines. Results may be falsely elevated after the administration of Sulfapyridine. Results may be falsely depressed after the administration of Sulfasalazine. Performed By: #### L 500.30457, L500.06312 #### [facility] [address] [place] [address] Potassium [Moles/Vol] 3.6 mmol/L Normal 3.5-5.1 [facility] Comment on above: Order Comment: Campu s: M Performed By: #### L 500.53367, L500.06589 #### [facility] [address] [place] [address] Sodium [Moles/Vol] 139 mmol/L Normal 136-145 [facility] Comment on above: Order Comment: Campu s: M Performed By: #### L 500.70391, L500.06429 #### [facility] [address] [place] [address] Urea nitrogen [Mass/Vol] 17 mg/dL Normal 7-26 [facility] Comment on above: Order Comment: Campu s: M Performed By: #### L 500.17805, L500.75878 #### [facility] [address] [place], [place] [address] Urea nitrogen/Creatinine [Mass ratio] 23 mg/mg Normal 15-24 [facility] Comment on above: Order Comment: Campu s: M Performed By: #### L 500.57616, L500.85114 #### [facility] [address] [place], [place] [address] CBC W/DIFFon 08-28-2020 BASO ABS 0.00 K/CU MM Normal 0-0.2 [facility] Comment on above: Order Comment: Campu s: M Performed By: #### L 200.15649 #### [facility] [address] [place] [address] Basophils/100 WBC (Bld) 0.1 % Normal 0-2 M [facility] Comment on above: Order Comment: Campu s: M Performed By: #### L 200.69723 #### [facility] [address] [place] [address] EOS ABS 0.20 K/CU MM Normal 0-0.5 [facility] Comment on above: Order Comment: Campu s: M Performed By: #### L 200.94253 #### [facility] [address] [place] [address] Eosinophils/100 WBC (Bld) 3.0 % Normal 0-5 [facility] Comment on above: Order Comment: Campu s: M Performed By: #### L 200.05027 #### [facility] [address] [place] [address] Erythrocyte distribution width (RBC) [Ratio] 14.0 % Normal 11-14.5 [facility] Comment on above: Order Comment: Campu s: M Performed By: #### L 200.16366 #### [facility] [address] [place] [address] Hematocrit (Bld) [Volume fraction] 42.2 % Normal 35.0-47.0 [facility] Comment on above: Order Comment: Campu s: M Performed By: #### L 200.27517 #### [facility] [address] [place] [address] Hemoglobin (Bld) [Mass/Vol] 14.3 g/dL Normal 11.5-15.5 [facility] Comment on above: Order Comment: Campu s: M Performed By: #### L 200.02578 #### [facility] [address] [place] [address] IMMATR GRAN ABS 0.00 K/CU MM Normal Less than 2 [facility] Comment on above: Order Comment: Campu s: M Performed By: #### L 200.66443 #### [facility] [address] [place] [address] IMMATURE GRAN % 0.4 % Normal Less than 2 [facility] Comment on above: Order Comment: Campu s: M Performed By: #### L 200.73250 #### [facility] [address] [place] [address] LYMPH ABS 2.20 K/CU MM Normal 0.9-4.4 [facility] Comment on above: Order Comment: Campu s: M Performed By: #### L 200.54895 #### [facility] [address] [place] [address] Lymphocytes/100 WBC (Bld) 32.1 % Normal 20-40 [facility] Comment on above: Order Comment: Campu s: M Performed By: #### L 200.17250 #### [facility] [address] [place] [address] MCHC (RBC) [Mass/Vol] 33.9 g/dL Normal 32.0-36.0 [facility] Comment on above: Order Comment: Campu s: M Performed By: #### L 200.54588 #### [facility] [address] [place] [address] MCV (RBC) [Entitic vol] 90.2 fL Normal 80.0-99.0 [facility] Comment on above: Order Comment: Campu s: M Performed By: #### L 200.08750 #### [facility] [address] [place] [address] MONO ABS 0.60 K/CU MM Normal 0.1-1.1 [facility] Comment on above: Order Comment: Campu s: M Performed By: #### L 200.47800 #### [facility] [address] [place] [address] Monocytes/100 WBC (Bld) 9.2 % Normal 2-10 M [facility] Comment on above: Order Comment: Campu s: M Performed By: #### L [id number] #### [facility] [address] [place] [address] NEUTROPHIL ABS 3.80 K/CU MM Normal 2.0-8.3 [facility] Comment on above: Order Comment: Campu s: M Performed By: #### L 200.80133 #### [facility] [address] [place] [address] Neutrophils/100 WBC (Bld) 55.2 % Normal 45-75 [facility] Comment on above: Order Comment: Campu s: M Performed By: #### L 200.97654 #### [facility] [address] [place] [address] Nucleated RBC/100 WBC (Bld) [Ratio] 0.0 % Normal Less than 1 [facility] Comment on above: Order Comment: Campu s: M Performed By: #### L .58519 #### [facility] [address] [place] [address] Platelet mean volume (Bld) [Entitic vol] 9.8 fL Normal 9.4-12.4 [facility] Comment on above: Order Comment: Campu s: M Performed By: #### L 200.36618 #### [facility] [address] [place] [address] PLT 112 K/CU MM Low 150-450 [facility] Comment on above: Order Comment: Campu s: M Result Comment: Conf irmed by slide estimate. Performed By: #### L 200.05121 #### [facility] [address] [place] [address] PLT EST SLT DECREASED Normal [facility] Comment on above: Order Comment: Campu s: M Performed By: #### L [id number] #### [facility] [address] [place] [address] RBC 4.68 M/CU MM Normal 3.90-5.30 [facility] Comment on above: Order Comment: Campu s: M Performed By: #### L 200.83578 #### [facility] [address] [place] [address] WBC 6.9 K/CUMM Normal 4.5-11.0 [facility] Comment on above: Order Comment: Campu s: M Performed By: #### L 200.25846 #### [facility] [address] [place] [address] CHEST PA/AP AND LATERALon CHEST PA/AP AND LATERAL EXAMINATION: [facility] RADIOGRAPH (2 VIEW FRONTAL & LATERAL) CLINICAL [...] MD Signed By: LEONOR MCKEON MD Normal [facility] EKGon 08-28-2020 Electrocardiogram Procedure Date and Time: [...] ECG No previous ECGs available Confirmed by Clare COBIANGRACE HOSPITALRadha Gatica ([id number]) on 08/28/2020 10:44:22 PM Referred By: Emergency Rowan Adrian Confirmed By:Radha COBIAN M.D.[facility] Clare DDandT: 08/28/201931 TDandT: [facility] PATIENT NAME: KRISH PERALTA [facility] [address] MEDICAL REC #: [id number] [place] [address] ADMIT DATE: DISCHARGE DATE: ATTENDING PHY: Rowan Adrian,Emergency Physi ELECTROCARDIOGRAM REPORT CLB cc: [facility] PATIENT NAME: KRISH PERALTA [facility] [address] MEDICAL REC #: [id number] [place] [address] ADMIT DATE: DISCHARGE DATE: ATTENDING PHY: Rowan Adrian,Emergency Physi ELECTROCARDIOGRAM REPORT Normal [facility] GFR ESTon 08-28-2020 IF AMER Greater than 60 Normal [facility] Comment on above: Order Comment: Pelonu s: M Performed By: #### L 500.67315, L500.66539 #### [facility] [address] [place] [address] IF non-AFR AMER Greater than 60 Normal [facility] Comment on above: Order Comment: Pelonu s: M Performed By: #### L 500.16596, L500.54981 #### [facility] [address] [place] [address] TROPONIN Ion 08-28-2020 TROPONIN I 3.1 pg/mL Normal 0-34 [facility] Comment on above: Order Comment: Chandni s: M Result Comment: NOTE NEW NORMAL RANGE DUE TO REAGENT CHANGE This assay uses different antibodies than our current assay, and assays, even by the same shake table operator may recognize different regions of the antibody and cannot be used interchangeably. Expect results of this assay to run higher than the previous assay. Performed By: #### L 550.31585 #### [facility] [address] [place] [address] Vital Signs Date Time Vital Sign Value Performing Clinician Facility 09-01-2024 09:19-0400 Body height 152.4 cm Paulette Ram BASE BR[employer]ER Work Phone: [facility] 09-01-2024 09:19-0400 Body temperature 97.7 [degF] Paulette Ram B[employer] BR[employer] Work Phone: [facility] 09-01-2024 09:19-0400 Diastolic blood pressure 62 mm[Hg] Paulette Ram B[employer] BR[employer]ER Work Phone: [facility] 09-01-2024 09:19-0400 Heart rate 67 /min Paulette Ram [employer] Work Phone: [facility] 09-01-2024 09:19-0400 SaO2% (BldA) [Mass fraction] 90 % Paulette Ram [employer] Work Phone: [facility] 09-01-2024 09:19-0400 Systolic blood pressure 98 mm[Hg] Paulette Ram [employer] BR[employer]ER Work Phone: [facility] 08-11-2024 12:27-0400 Body temperature 97.81 [degF] Mejgon Ann DO Work Phone: [facility] 08-11-2024 12:27-0400 Diastolic blood pressure 73 mm[Hg] Mejgon Ann DO Work Phone: [facility] 08-11-2024 12:27-0400 Heart rate 85 /min Mejgon Ann DO Work Phone: [facility] 08-11-2024 12:27-0400 Respiratory rate 16 /min Mejgon Ann DO Work Phone: [facility] 08-11-2024 12:27-0400 SaO2% (BldA) [Mass fraction] 92 % Mejgon Ann DO Work Phone: [facility] 08-11-2024 12:27-0400 Systolic blood pressure 117 mm[Hg] Mejgon Ann DO Work Phone: [facility] [employer] 08-06-2024 15:21-0400 Body height 152.4 cm Stacia Juarez DO Work Phone: [facility] [employer] 08-06-2024 15:21-0400 Body mass index (BMI) [Ratio] 42.97 kg/m2 Stacia Juarez DO Work Phone: [facility] [employer] 08-06-2024 15:21-0400 Body weight 99.79 kg Stacia Juarez DO Work Phone: [facility] [employer] 11-11-2023 11:15-0400 Body mass index (BMI) [Ratio] 38.47 kg/m2 Kalli De Anda APRN.UPHOLSTERY MECHANIC Work Phone: [facility] 11-11-2023 11:15-0400 Body temperature 97.81 [degF] Kalli De Anda APRN.UPHOLSTERY MECHANIC Work Phone: [facility] 11-11-2023 11:15-0400 Body weight 89.36 kg Kalli De Anda APRN.UPHOLSTERY MECHANIC Work Phone: [facility] Comment on above: 11/03/2023 11-11-2023 11:15-0400 Diastolic blood pressure 72 mm[Hg] Kalli De Anda APRN.UPHOLSTERY MECHANIC Work Phone: [facility] 11-11-2023 11:15-0400 Heart rate 68 /min Kalli De Anda APRN.UPHOLSTERY MECHANIC Work Phone: [facility] 11-11-2023 11:15-0400 Respiratory rate 18 /min Kalli De Anda APRN.UPHOLSTERY MECHANIC Work Phone: [facility] 11-11-2023 11:15-0400 SaO2% (BldA) [Mass fraction] 96 % Kalli De Anda APRN.UPHOLSTERY MECHANIC Work Phone: [facility] 11-11-2023 11:15-0400 Systolic blood pressure 126 mm[Hg] Kalli De Anda APRN.UPHOLSTERY MECHANIC Work Phone: [facility] 11-05-2023 14:23-0400 Body temperature 97.59 [degF] Kalli De Anda APRN.UPHOLSTERY MECHANIC Work Phone: [facility] 11-05-2023 14:23-0400 Diastolic blood pressure 67 mm[Hg] Kalli De Anda APRN.UPHOLSTERY MECHANIC Work Phone: [facility] 11-05-2023 14:23-0400 Heart rate 79 /min Kalli De Anda APRN.UPHOLSTERY MECHANIC Work Phone: [facility] 11-05-2023 14:23-0400 Respiratory rate 18 /min Kalli De Anda APRN.UPHOLSTERY MECHANIC Work Phone: [facility] 11-05-2023 14:23-0400 SaO2% (BldA) [Mass fraction] 95 % Kalli De Anda APRN.UPHOLSTERY MECHANIC Work Phone: [facility] 11-05-2023 14:23-0400 Systolic blood pressure 114 mm[Hg] Kalli De Anda APRN.UPHOLSTERY MECHANIC Work Phone: [facility] 11-03-2023 16:14-0400 Body mass index (BMI) [Ratio] 38.47 kg/m2 Kalli De Anda APRN.UPHOLSTERY MECHANIC Work Phone: [facility] 11-03-2023 16:14-0400 Body temperature 96.21 [degF] Kalli De Anda APRN.UPHOLSTERY MECHANIC Work Phone: [facility] 11-03-2023 16:14-0400 Body weight 89.36 kg Kalli De Anda APRN.UPHOLSTERY MECHANIC Work Phone: [facility] 11-03-2023 16:14-0400 Diastolic blood pressure 60 mm[Hg] Kalli De Anda APRN.UPHOLSTERY MECHANIC Work Phone: [facility] 11-03-2023 16:14-0400 Heart rate 73 /min Kalli De Anda APRN.UPHOLSTERY MECHANIC Work Phone: [facility] 11-03-2023 16:14-0400 Respiratory rate 18 /min Kalli De Anda APRN.UPHOLSTERY MECHANIC Work Phone: [facility] 11-03-2023 16:14-0400 SaO2% (BldA) [Mass fraction] 93 % Kalli De Anda APRN.UPHOLSTERY MECHANIC Work Phone: [facility] 11-03-2023 16:14-0400 Systolic blood pressure 110 mm[Hg] Kalli De Anda APRN.UPHOLSTERY MECHANIC Work Phone: [facility] 10-29-2023 15:29-0400 Body temperature 97.39 [degF] Kalli De Anda APRN.UPHOLSTERY MECHANIC Work Phone: [facility] 10-29-2023 15:29-0400 Diastolic blood pressure 64 mm[Hg] Kalli De Anda APRN.UPHOLSTERY MECHANIC Work Phone: [facility] 10-29-2023 15:29-0400 Heart rate 75 /min Kalli De Anda APRN.UPHOLSTERY MECHANIC Work Phone: [facility] 10-29-2023 15:29-0400 Respiratory rate 20 /min Kalli De Anda APRN.UPHOLSTERY MECHANIC Work Phone: [facility] 10-29-2023 15:29-0400 SaO2% (BldA) [Mass fraction] 95 % Kalli De Anda APRN.UPHOLSTERY MECHANIC Work Phone: [facility] 10-29-2023 15:29-0400 Systolic blood pressure 111 mm[Hg] Kalli De Anda APRN.UPHOLSTERY MECHANIC Work Phone: [facility] 10-27-2023 12:09-0400 Body mass index (BMI) [Ratio] 37.5 kg/m2 Kalli De Anda APRN.UPHOLSTERY MECHANIC Work Phone: [facility] 10-27-2023 12:09-0400 Body temperature 97.3 [degF] Kalli De Anda APRN.UPHOLSTERY MECHANIC Work Phone: [facility] 10-27-2023 12:09-0400 Body weight 87.09 kg Kalli De Anda APRN.UPHOLSTERY MECHANIC Work Phone: [facility] 10-27-2023 12:09-0400 Diastolic blood pressure 69 mm[Hg] Kalli De Anda NEUROLOGY PROFESSOR.UPHOLSTERY MECHANIC Work Phone: [facility] 10-27-2023 12:09-0400 Heart rate 79 /min Kalli De Anda APRN.UPHOLSTERY MECHANIC Work Phone: [facility] 10-27-2023 12:09-0400 Respiratory rate 16 /min Kalli De Anda NEUROLOGY PROFESSOR.UPHOLSTERY MECHANIC Work Phone: [facility] 10-27-2023 12:09-0400 SaO2% (BldA) [Mass fraction] 95 % Kalli De Anda NEUROLOGY PROFESSOR.UPHOLSTERY MECHANIC Work Phone: [facility] 10-27-2023 12:09-0400 Systolic blood pressure 126 mm[Hg] Kalli De Anda NEUROLOGY PROFESSOR.UPHOLSTERY MECHANIC Work Phone: [facility] 10-16-2023 14:10-0400 Body temperature 97.59 [degF] Kalli De Anda APRN.UPHOLSTERY MECHANIC Work Phone: [facility] 10-16-2023 14:10-0400 Diastolic blood pressure 59 mm[Hg] Kalli De Anda NEUROLOGY PROFESSOR.UPHOLSTERY MECHANIC Work Phone: [facility] [facility] 10-16-2023 14:10-0400 Heart rate 73 /min Kalli De Anda APRN.UPHOLSTERY MECHANIC Work Phone: [facility] 10-16-2023 14:10-0400 Respiratory rate 18 /min Kalli De Anda APRN.UPHOLSTERY MECHANIC Work Phone: [facility] 10-16-2023 14:10-0400 SaO2% (BldA) [Mass fraction] 92 % Kalli De Anda APRN.UPHOLSTERY MECHANIC Work Phone: [facility] 10-16-2023 14:10-0400 Systolic blood pressure 123 mm[Hg] Kalli De Anda NEUROLOGY PROFESSOR.UPHOLSTERY MECHANIC Work Phone: [facility] 10-14-2023 11:15-0400 Body mass index (BMI) [Ratio] 38.28 kg/m2 Kalli De Anda NEUROLOGY PROFESSOR.UPHOLSTERY MECHANIC Work Phone: [facility] 10-14-2023 11:15-0400 Body temperature 97.59 [degF] Kalli De Anda NEUROLOGY PROFESSOR.UPHOLSTERY MECHANIC Work Phone: [facility] 10-14-2023 11:15-0400 Body weight 88.91 kg Kalli De Anda APRN.UPHOLSTERY MECHANIC Work Phone: [facility] 10-14-2023 11:15-0400 Diastolic blood pressure 70 mm[Hg] Kalli De Anda NEUROLOGY PROFESSOR.UPHOLSTERY MECHANIC Work Phone: [facility] 10-14-2023 11:15-0400 Heart rate 72 /min Kalli De Anda APRN.UPHOLSTERY MECHANIC Work Phone: [facility] 10-14-2023 11:15-0400 Respiratory rate 18 /min Kalli De Anda APRN.UPHOLSTERY MECHANIC Work Phone: [facility] 10-14-2023 11:15-0400 SaO2% (BldA) [Mass fraction] 95 % Kalli De Anda APRN.UPHOLSTERY MECHANIC Work Phone: [facility] 10-14-2023 11:15-0400 Systolic blood pressure 120 mm[Hg] Kalli Helbert NEUROLOGY PROFESSOR.UPHOLSTERY MECHANIC Work Phone: [facility] 10-09-2023 15:00-0400 Body temperature 97.5 [degF] Kalli De Anda NEUROLOGY PROFESSOR.UPHOLSTERY MECHANIC Work Phone: [facility] 10-09-2023 15:00-0400 Diastolic blood pressure 68 mm[Hg] Kalli Hellandry NEUROLOGY PROFESSOR.UPHOLSTERY MECHANIC Work Phone: [facility] 10-09-2023 15:00-0400 Heart rate 84 /min Kalli De Anda APRN.UPHOLSTERY MECHANIC Work Phone: [facility] 10-09-2023 15:00-0400 Respiratory rate 18 /min Kalli De Anda APRN.UPHOLSTERY MECHANIC Work Phone: [facility] 10-09-2023 15:00-0400 SaO2% (BldA) [Mass fraction] 93 % Kalli Helbert NEUROLOGY PROFESSOR.UPHOLSTERY MECHANIC Work Phone: [facility] 10-09-2023 15:00-0400 Systolic blood pressure 105 mm[Hg] Kalli Helbert NEUROLOGY PROFESSOR.UPHOLSTERY MECHANIC Work Phone: [facility] 10-07-2023 11:48-0400 Body temperature 97.81 [degF] Kalli Helbert NEUROLOGY PROFESSOR.UPHOLSTERY MECHANIC Work Phone: [facility] 10-07-2023 11:48-0400 Diastolic blood pressure 79 mm[Hg] Kalli Helbert NEUROLOGY PROFESSOR.UPHOLSTERY MECHANIC Work Phone: [facility] 10-07-2023 11:48-0400 Heart rate 90 /min Kalli Helbert NEUROLOGY PROFESSOR.UPHOLSTERY MECHANIC Work Phone: [facility] 10-07-2023 11:48-0400 Respiratory rate 18 /min Kalli Helbert NEUROLOGY PROFESSOR.UPHOLSTERY MECHANIC Work Phone: [facility] 10-07-2023 11:48-0400 SaO2% (BldA) [Mass fraction] 93 % Kalli Helbert NEUROLOGY PROFESSOR.UPHOLSTERY MECHANIC Work Phone: [facility] 10-07-2023 11:48-0400 Systolic blood pressure 133 mm[Hg] Kalli Helbert NEUROLOGY PROFESSOR.UPHOLSTERY MECHANIC Work Phone: [facility] 10-02-2023 11:02-0400 Body temperature 97.59 [degF] Kalli Helbert NEUROLOGY PROFESSOR.UPHOLSTERY MECHANIC Work Phone: [facility] 10-02-2023 11:02-0400 Diastolic blood pressure 97 mm[Hg] Kalli Helbert NEUROLOGY PROFESSOR.UPHOLSTERY MECHANIC Work Phone: [facility] 10-02-2023 11:02-0400 Heart rate 68 /min Kalli Helbert NEUROLOGY PROFESSOR.UPHOLSTERY MECHANIC Work Phone: [facility] 10-02-2023 11:02-0400 Respiratory rate 18 /min Kalli Helbert NEUROLOGY PROFESSOR.UPHOLSTERY MECHANIC Work Phone: [facility] 10-02-2023 11:02-0400 SaO2% (BldA) [Mass fraction] 94 % Kalli Helbert NEUROLOGY PROFESSOR.UPHOLSTERY MECHANIC Work Phone: [facility] 10-02-2023 11:02-0400 Systolic blood pressure 118 mm[Hg] Kalli Helbert NEUROLOGY PROFESSOR.UPHOLSTERY MECHANIC Work Phone: [facility] 09-30-2023 11:25-0400 Body temperature 97.5 [degF] Kalli Helbert NEUROLOGY PROFESSOR.UPHOLSTERY MECHANIC Work Phone: [facility] 09-30-2023 11:25-0400 Diastolic blood pressure 62 mm[Hg] Kalli Helbert NEUROLOGY PROFESSOR.UPHOLSTERY MECHANIC Work Phone: [facility] 09-30-2023 11:25-0400 Heart rate 64 /min Kalli Helbert NEUROLOGY PROFESSOR.UPHOLSTERY MECHANIC Work Phone: [facility] 09-30-2023 11:25-0400 Respiratory rate 18 /min Kalli Helbert NEUROLOGY PROFESSOR.UPHOLSTERY MECHANIC Work Phone: [facility] 09-30-2023 11:25-0400 SaO2% (BldA) [Mass fraction] 95 % Kalli Helbert NEUROLOGY PROFESSOR.UPHOLSTERY MECHANIC Work Phone: [facility] 09-30-2023 11:25-0400 Systolic blood pressure 123 mm[Hg] Kalli Helbert NEUROLOGY PROFESSOR.UPHOLSTERY MECHANIC Work Phone: [facility] 09-26-2023 23:10-0400 Body temperature 97.81 [degF] Kalli Helbert NEUROLOGY PROFESSOR.UPHOLSTERY MECHANIC Work Phone: [facility] 09-26-2023 23:10-0400 Diastolic blood pressure 52 mm[Hg] Kalli Helbert NEUROLOGY PROFESSOR.UPHOLSTERY MECHANIC Work Phone: [facility] 09-26-2023 23:10-0400 Heart rate 72 /min Kalli Helbert NEUROLOGY PROFESSOR.UPHOLSTERY MECHANIC Work Phone: [facility] 09-26-2023 23:10-0400 Respiratory rate 18 /min Kalli Helbert NEUROLOGY PROFESSOR.UPHOLSTERY MECHANIC Work Phone: [facility] 09-26-2023 23:10-0400 SaO2% (BldA) [Mass fraction] 92 % Kalli De Anda APRN.UPHOLSTERY MECHANIC Work Phone: [facility] 09-26-2023 23:10-0400 Systolic blood pressure 108 mm[Hg] Kalli De Anda NEUROLOGY PROFESSOR.UPHOLSTERY MECHANIC Work Phone: [facility] 09-23-2023 09:52-0400 Body temperature 97.7 [degF] Kalli De Anda NEUROLOGY PROFESSOR.UPHOLSTERY MECHANIC Work Phone: [facility] 09-23-2023 09:52-0400 Diastolic blood pressure 62 mm[Hg] Kalli De Anda NEUROLOGY PROFESSOR.UPHOLSTERY MECHANIC Work Phone: [facility] 09-23-2023 09:52-0400 Heart rate 86 /min Kalli De Anda APRN.UPHOLSTERY MECHANIC Work Phone: [facility] 09-23-2023 09:52-0400 Respiratory rate 18 /min Kalli De Anda NEUROLOGY PROFESSOR.UPHOLSTERY MECHANIC Work Phone: [facility] 09-23-2023 09:52-0400 SaO2% (BldA) [Mass fraction] 92 % Kalli De Anda NEUROLOGY PROFESSOR.UPHOLSTERY MECHANIC Work Phone: [facility] 09-23-2023 09:52-0400 Systolic blood pressure 121 mm[Hg] Kalli De Anda NEUROLOGY PROFESSOR.UPHOLSTERY MECHANIC Work Phone: [facility] 06-20-2023 14:45-0400 Body temperature 97.7 [degF] WAQAS GONZALEZ MD [facility] 06-20-2023 14:45-0400 Diastolic Blood Pressure Non-Invasive 64 mm[Hg] WAQAS GONZALEZ MD [facility] 06-20-2023 14:45-0400 Heart rate 86 /min WAQAS GONZALEZ MD [facility] 06-20-2023 14:45-0400 Reason For Taking VItal Signs WAQAS GONZALEZ MD [address] [place] [address] 06-20-2023 14:45-0400 Respiratory rate 18 /min WAQAS GONZALEZ MD [address] [place] [address] 06-20-2023 14:45-0400 Systolic Blood Pressure Non-Invasive 119 mm[Hg] WAQAS GONZALEZ MD [address] [place] [address] 06-20-2023 12:45-0400 Body temperature 97.88 [degF] WAQAS GONZALEZ MD [address] [place] [address] 06-20-2023 12:45-0400 Diastolic Blood Pressure Non-Invasive 66 mm[Hg] WAQAS GONZALEZ MD [address] [place] [address] 06-20-2023 12:45-0400 Heart rate 72 /min WAQAS GONZALEZ MD [address] [place] [address] 06-20-2023 12:45-0400 Reason For Taking VItal Signs WAQAS GONZALEZ MD [address] [place] [address] 06-20-2023 12:45-0400 Respiratory rate 18 /min WAQAS GONZALEZ MD [address] [place] [address] 06-20-2023 12:45-0400 Systolic Blood Pressure Non-Invasive 120 mm[Hg] WAQAS GONZALEZ MD [address] [place] [address] 06-20-2023 11:06-0400 Body temperature 98.24 [degF] WAQAS GONZALEZ MD [address] [place] [address] 06-20-2023 11:06-0400 Diastolic Blood Pressure Non-Invasive 67 mm[Hg] WAQAS GONZALEZ MD [address] [place] [address] 06-20-2023 11:06-0400 Heart rate 73 /min WAQAS GONZALEZ MD [address] [place] [address] 06-20-2023 11:06-0400 Reason For Taking VItal Signs WAQAS GONZALEZ MD [address] [place] [address] 06-20-2023 11:06-0400 Respiratory rate 18 /min WAQAS GONZALEZ MD [facility] 06-20-2023 11:06-0400 Systolic Blood Pressure Non-Invasive 124 mm[Hg] WAQAS GONAZLEZ MD [facility] 06-20-2023 07:13-0400 Heart rate 76 /min WAQAS GONZALEZ MD [address] [place] [address] 06-20-2023 06:27-0400 Blood Pressure Cuff Size WAQAS GONZALEZ MD [address] [place] [address] 06-20-2023 06:27-0400 Blood Pressure Location WAQAS GONZALEZ MD [address] [place] [address] 06-20-2023 06:27-0400 Blood Pressure Method WAQAS GONZALEZ MD [address] 06-20-2023 01:01-0400 Blood Pressure Cuff Size WAQAS GONZALEZ MD [address] [place] [address] 06-20-2023 01:01-0400 Blood Pressure Location WAQAS GONZALEZ MD [address] [place] [address] 06-20-2023 01:01-0400 Blood Pressure Method WQAAS GONZALEZ MD [address] [place] [address] 06-20-2023 01:01-0400 Heart rate 64 /min WAQAS GONZALEZ MD [address] [place] [address] 06-19-2023 08:02-0400 Heart rate 77 /min WAQAS GONZALEZ MD [address] [place] [address] 06-18-2023 23:05-0400 Blood Pressure Cuff Size WAQAS GONZALEZ MD [address] [place] [address] 06-18-2023 23:05-0400 Blood Pressure Location WAQAS GONZALEZ MD [facility] 06-18-2023 23:05-0400 Blood Pressure Method WAQAS GONZALEZ MD [address] [place] [address] 06-18-2023 20:42-0400 Body height 154 cm WAQAS GONZALEZ MD [facility] 06-18-2023 20:42-0400 Body weight 104.5 kg WAQAS GONZALEZ MD [facility] 06-18-2023 20:42-0400 Body weight 44.06 kg/m2 WAQAS GONZALEZ MD [facility] 06-18-2023 10:02-0400 SaO2% (BldA) [Mass fraction] 92.9 % WAQAS GONZALEZ MD [facility] 06-18-2023 06:17-0400 Body weight 104.5 kg WAQAS GONZALEZ MD [facility] 02-16-2022 14:53-0500 Body temperature 98.06 [degF] DR NASRA MENEZES MD [facility] 02-16-2022 14:53-0500 Diastolic Blood Pressure Non-Invasive [address] NASRA MENEZES MD [address] [place] [address] 02-16-2022 14:53-0500 Heart rate 81 /min DR NASRA MENEZES MD [facility] 02-16-2022 14:53-0500 Respiratory rate 17 /min DR NASRA MENEZES MD [facility] 02-16-2022 14:53-0500 Systolic Blood Pressure Non-Invasive [address] [facility] 02-16-2022 14:38-0500 Heart rate 78 /min DR NASRA MENEZES MD [facility] 02-16-2022 14:38-0500 Respiratory rate 17 /min DR NASRA MENEZES MD [facility] 02-16-2022 08:45-0500 Blood Pressure Cuff Size DR NASRA MENEZES MD [address] [place] [address] 02-16-2022 08:45-[address] NASRA MENEZES MD [address] [place] [address] 02-16-2022 08:45-[address] NASRA MENEZES MD [address] [place] [address] 02-16-2022 08:45-0500 Body temperature 97.52 [degF] DR NASRA MENEZES MD [address] [place] [address] 02-16-2022 08:45-0500 Diastolic Blood Pressure Non-Invasive [address] NASRA MENEZES MD [address] [place] [address] 02-16-2022 08:45-0500 Heart rate 67 /min DR NASRA MENEZES MD [address] 02-16-2022 08:45-0500 Reason For Taking VItal Signs DR NASRA MENEZES MD [address] [place] [address] 02-16-2022 08:45-0500 Respiratory rate 19 /min DR NASRA MENEZES MD [address] [place] [address] 02-16-2022 08:45-0500 Systolic Blood Pressure Non-Invasive [address] NASRA MENEZES MD [address] [place] [address] 02-16-2022 07:34-0500 Heart rate 62 /min DR NASRA MENEZES MD [address] [place] [address] 02-15-2022 21:40-0500 Diastolic Blood Pressure Non-Invasive [address] NASRA MENEZES MD [address] [place] [address] 02-15-2022 21:40-0500 Heart rate 84 /min DR NASRA MENEZES MD [address] [place] [address] 02-15-2022 21:40-0500 Systolic Blood Pressure Non-Invasive [address] NASRA MENEZES MD [address] [place] [address] 02-15-2022 21:28-0500 Body temperature 98.06 [degF] DR NASRA MENEZES MD [facility] 02-14-2022 22:02-0500 Heart rate 61 /min DR NASRA MENEZES MD [facility] 02-13-2022 15:35-0500 Reason For Taking VItal Signs DR NASRA MENEZES MD [address] [place] [address] 02-13-2022 07:49-0500 Reason For Taking VItal Signs DR NASRA MENEZES MD [facility] 02-12-2022 22:07-0500 Body height [address] NASRA MENEZES MD [facility] 02-12-2022 22:07-0500 Body weight 102.[address] NASRA MENEZES MD [address] [place] [address] 02-12-2022 22:07-0500 Body weight 42.58 kg/m2 DR NASRA MENEZES MD [facility] 02-12-2022 11:16-0500 Body temperature 98.24 [degF] DR NASRA MENEZES MD [facility] 02-12-2022 11:16-0500 Body weight 102.[address] NASRA MENEZES MD [facility] Encounters Encounter Date Encounter Type Care Provider Facility Start: 09-01-2024 End: 09-01-2024 Office outpatient visit 25 minutes Paulette Ram NP Work Phone: [facility] Comment on above: Hospital discharge f ollow-up (Primary Dx); Acute on chronic respiratory failure with hypoxemia (HCC); COPD exacerbation (HCC); Community acquired pneumonia of right lower lobe of lung; JOCELIN (obstructive sleep apnea); Smoking history Start: 09-01-2024 End: 09-01-2024 ambulatory PAULETTE RAM [facility] Start: 08-18-2024 ambulatory Kaleb Andersono OLS Facili ty:[facility] Start: 08-13-2024 End: 08-13-2024 Telephone encounter Arnoldo Bustillos RCP [facility] Resp Therapy Start: 08-03-2024 End: 08-11-2024 Evaluation and management of inpatient Stacia Juarez DO Work Phone: [facility] Cardiac Progressive [facility] PCU 2E Comment on above: COPD exacerbation (H CC) (Primary Dx); Acute on chronic congestive heart failure, unspecified heart failure type (HCC); Acute hypoxic respiratory failure (HCC) Start: 04-17-2024 ambulatory Tacos Bender Camille ility:[facility] Start: 04-17-2024 End: 04-19-2024 Evaluation and management of inpatient Trip Hamilton Facility:[facility] Start: 03-11-2024 ambulatory Kaleb IRIZARRY Facili ty:[facility] Start: 02-09-2024 End: 02-09-2024 ambulatory Kaleb Andersono EDIE Facility:[facility] Start: 02-02-2024 End: 02-02-2024 ambulatory Kaleb Andersono EDIE Facility:[facility] Start: 01-12-2024 End: 01-12-2024 ambulatory Kaleb Andersono EDIE Facility:[facility] Start: 01-02-2024 End: 01-02-2024 ambulatory Kaleb Andersono EDIE Facility:[facility] Start: 12-29-2023 End: 12-29-2023 ambulatory Kaleb IRIZARRY Facility:[facility] Start: 11-17-2023 ambulatory Kaleb Andersono EDIE Facili ty:[facility] Start: 11-11-2023 End: 11-11-2023 ambulatory Kalli De Anda APRN.CNP Work Phone: [facility] Comment on above: Acute pain of right shoulder (Primary Dx); Personal history of fall; Non-traumatic rhabdomyolysis; Hypertension, unspecified type; Chronic obstructive pulmonary disease, unspecified COPD type (HCC); Debility Start: 11-11-2023 End: 11-11-2023 Telemedicine consultation with patient Kalli De Anda CHANDANA Work Phone: [facility] Start: 11-05-2023 End: 11-05-2023 ambulatory Kalli De Anda APRN.UPHOLSTERY MECHANIC Work Phone: [facility] Comment on above: Acute pain of right shoulder (Primary Dx); Personal history of fall; Non-traumatic rhabdomyolysis; Hypertension, unspecified type; Chronic obstructive pulmonary disease, unspecified COPD type (HCC); Debility; Dysuria Start: 11-05-2023 End: 11-05-2023 Telemedicine consultation with patient Kalli De Anda APRN.UPHOLSTERY MECHANIC Work Phone: [facility] Start: 11-03-2023 End: 11-03-2023 ambulatory Kalli De Anda APRN.UPHOLSTERY MECHANIC Work Phone: [facility] Comment on above: Acute pain of right shoulder (Primary Dx); Personal history of fall; Non-traumatic rhabdomyolysis; Hypertension, unspecified type; Chronic obstructive pulmonary disease, unspecified COPD type (HCC); Debility Start: 11-03-2023 End: 11-03-2023 Telemedicine consultation with patient Kalli De Anda APRN.UPHOLSTERY MECHANIC Work Phone: [facility] Start: 10-29-2023 End: 10-29-2023 ambulatory Kalli De Anda APRN.[facility] Work Phone: [facility] Comment on above: Acute pain of right shoulder (Primary Dx); Personal history of fall; Non-traumatic rhabdomyolysis; Hypertension, unspecified type; Chronic obstructive pulmonary disease, unspecified COPD type (HCC); Debility; Dysuria Start: 10-29-2023 End: 10-29-2023 Telemedicine consultation with patient Kalli De Anda APRN.UPHOLSTERY MECHANIC Work Phone: [facility] Start: 10-27-2023 End: 10-27-2023 ambulatory Kalli De Anda APRN.UPHOLSTERY MECHANIC Work Phone: [facility] Comment on above: Non-traumatic rhabdo myolysis (Primary Dx); Acute pain of right shoulder; Personal history of fall; Hypertension, unspecified type; Chronic obstructive pulmonary disease, unspecified COPD type (HCC); Debility; Abnormal finding on urinalysis; Other specified hypothyroidism Start: 10-27-2023 End: 10-27-2023 Telemedicine consultation with patient Kalli De Anda APRN.UPHOLSTERY MECHANIC Work Phone: [facility] Start: 10-21-2023 End: 10-24-2023 Evaluation and management of inpatient EMILY MCCARTY Facility:[id number] Start: 10-16-2023 ambulatory Kalli vigil APRN.UPHOLSTERY MECHANIC Work Phone: [facility] Comment on above: Urinary tract infect ion with hematuria, site unspecified (Primary Dx); Haemophilus influenzae infection; Hypertension, unspecified type; Other specified hypothyroidism; Acute hypoxic respiratory failure (HCC); Hypokalemia; Debility Start: 10-16-2023 Telemedicine consult ation with patient Kalli De Anda APRN.UPHOLSTERY MECHANIC Work Phone: [facility] Start: 10-14-2023 ambulatory Kalli vigil APRN.UPHOLSTERY MECHANIC Work Phone: [facility] Comment on above: Urinary tract infect ion with hematuria, site unspecified (Primary Dx); Haemophilus influenzae infection; Hypertension, unspecified type; Other specified hypothyroidism; Acute hypoxic respiratory failure (HCC); Hypokalemia; Debility Start: 10-14-2023 Telemedicine consult ation with patient Kalli De Anda APRN.UPHOLSTERY MECHANIC Work Phone: [facility] Start: 10-09-2023 ambulatory Kalli vigil APRN.UPHOLSTERY MECHANIC Work Phone: [facility] Comment on above: Urinary tract infect ion with hematuria, site unspecified (Primary Dx); Haemophilus influenzae infection; Hypertension, unspecified type; Other specified hypothyroidism; Acute hypoxic respiratory failure (HCC); Debility Start: 10-09-2023 Telemedicine consult ation with patient Kalli De Anda APRN.UPHOLSTERY MECHANIC Work Phone: [facility] Start: 10-07-2023 ambulatory Kalli vigil APRN.UPHOLSTERY MECHANIC Work Phone: [facility] Comment on above: Urinary tract infect ion with hematuria, site unspecified (Primary Dx); Haemophilus influenzae infection; Hypertension, unspecified type; Other specified hypothyroidism; Acute hypoxic respiratory failure (HCC); Debility Start: 10-07-2023 Telemedicine consult ation with patient Kalli De Anda APRN.UPHOLSTERY MECHANIC Work Phone: [facility] Start: 10-02-2023 ambulatory Kalli vigil NEUROLOGY PROFESSOR.UPHOLSTERY MECHANIC Work Phone: [facility] Comment on above: Urinary tract infect ion with hematuria, site unspecified (Primary Dx); Haemophilus influenzae infection; Hypertension, unspecified type; Other specified hypothyroidism; Acute hypoxic respiratory failure (HCC); Debility; OAB (overactive bladder) Start: 10-02-2023 Telemedicine consult ation with patient Kalli De Anda APRN.UPHOLSTERY MECHANIC Work Phone: [facility] Start: 09-30-2023 ambulatory Kalli vigil NEUROLOGY PROFESSOR.UPHOLSTERY MECHANIC Work Phone: [facility] Comment on above: Urinary tract infect ion with hematuria, site unspecified (Primary Dx); Haemophilus influenzae infection; Hypertension, unspecified type; Other specified hypothyroidism; Acute hypoxic respiratory failure (HCC); Debility Start: 09-30-2023 Telemedicine consult ation with patient Kalli De Anda APRN.UPHOLSTERY MECHANIC Work Phone: [facility] Start: 09-26-2023 ambulatory Kalli vigil NEUROLOGY PROFESSOR.UPHOLSTERY MECHANIC Work Phone: [facility] Comment on above: Urinary tract infect ion with hematuria, site unspecified (Primary Dx); Hypertension, unspecified type; Other specified hypothyroidism; Acute hypoxic respiratory failure (HCC); Debility Start: 09-26-2023 Telemedicine consult ation with patient Kalli De Anda APRN.UPHOLSTERY MECHANIC Work Phone: [facility] Start: 09-23-2023 ambulatory Kalli vigil NEUROLOGY PROFESSOR.UPHOLSTERY MECHANIC Work Phone: [facility] Comment on above: Urinary tract infect ion with hematuria, site unspecified (Primary Dx); Hypertension, unspecified type; Other specified hypothyroidism; Acute hypoxic respiratory failure (HCC); Debility; OAB (overactive bladder) Start: 09-23-2023 Telemedicine consult ation with patient Kalli De Anda APRN.UPHOLSTERY MECHANIC Work Phone: [facility] Start: 09-13-2023 End: 09-23-2023 Evaluation and management of inpatient EMILY MCCARTY Facility:[id number] Start: 09-03-2023 End: 09-03-[address] EMILY MCCARTY MD Facility:A Start: 08-01-2023 End: 08-05-[address] EMILY MCCARTY MD Facility:A Start: 06-18-2023 End: 06-20-2023 Evaluation and management of inpatient WAQAS GONZALEZ MD [facility] Start: 06-09-[address] EMILY MCCARTY MD F acility:A Start: 05-23-2023 End: 05-23-[address] EMILY MCCARTY MD Facility:A Start: 02-03-2023 End: 02-07-[address] EMILY MCCARTY MD Facility:A Start: 12-31-2022 End: 12-31-2022 Emergency department patient visit EMILY MCCARTY Facility:[id number] Start: 11-01-[address] EMILY MCCARTY MD F acility:A Start: 04-08-2022 End: 04-08-2022 Patient encounter procedure NASIR KNUTSON NEUROLOGY PROFESSOR-UPHOLSTERY MECHANIC [facility] Start: 02-12-2022 End: 02-16-2022 Evaluation and management of inpatient DR NASRA MENEZES MD [facility] Start: 01-16-[address] Ari Pegueroman Facility:[id number] Start: 01-22-2021 End: 01-22-2021 Patient encounter procedure MARNI SAMSON NEUROLOGY PROFESSOR-UPHOLSTERY MECHANIC [facility] Start: 01-21-2018 Patient encounter procedure Angelo Mallorymarbleshelby Facility:[id number] Start: 12-22-2017 Patient encounter procedure Angelo Gay [facility] Facility:[id number] Procedures Date Procedure Procedure Detail Performing Clinician Start: 08-11-2024 Basic metabolic pane l calcium total Helen Vogt DO Work Phone: Start: 08-10-2024 Comprehensive metabo [...] w/ wom-mode compl spec&colr d Fawn Dover NEUROLOGY PROFESSOR - UPHOLSTERY MECHANIC Work Phone: Start: 08-06-2024 Radiologic exam [...] by LYDIA with non-probe detection Fawn Dover [facility] [employer] [facility] Work Phone: Start: 08-04-2024 Smr prim src gram/gi emsa stain bct fungi/cell Fawnlino Dover [facility] [employer] [facility] Work Phone: Start: 08-04-2024 Iaadiadoo not otherw ise specified Fawnlino [place] [facility] [facility] Work Phone: Start: 08-04-2024 LEGIONELLA AND STREP TOCOCCUS URINE ANTIGEN, ORDERABLE Fawnlino Dover [facility] [employer] [employer] [facility] Work Phone: Start: 08-04-2024 URINE HOLD CUP Fawnlino Rebollary [facility] [employer] [employer] [facility] Work Phone: Start: 08-04-2024 Respiratory pathogen s DNA and RNA panel - Nasopharynx by LYDIA with non-probe detection Fawn Dover [facility] [employer] [facility] Work Phone: Start: 08-03-2024 OXYGEN THERAPY Fransisco willingham MD Work Phone: Start: 08-03-2024 Assay of troponin quantitative Stacia De La Vega Ann DO Work Phone: Start: 08-03-2024 OXYGEN THERAPY Fransisco willingham MD Work Phone: Start: 08-03-2024 Radiologic exam ches t single view Stacia De La Vega Ann DO Work Phone: Start: 08-03-2024 Ecg routine ecg w/le ast 12 lds trcg only w/o i&r Stacia De La Vega Ann DO Work Phone: Start: 08-03-2024 Comprehensive metabo lic panel Stacia De La Vega Ann DO Work Phone: Start: 08-03-2024 Manual Differential panel - Blood Stacia Juarez DO Work Phone: Start: 12-31-2022 Antibody screen MUKUND MCCARTY Comment on above: Order Comment: Speci men Type: BLOOD SPECIMENOrdering Facility: [facility] Address: [address] [place] [address] [place] [address] Performed By: #### L [id number], TSCR ####[facility] BLOOD BANKCLIA [id number] [address] Start: 07-04-2022 Echocardiography WAQAS GONZALEZ MD [...] and dilation of esophageal stricture MARNI SAMSON NEUROLOGY PROFESSOR-UPHOLSTERY MECHANIC Start: 03-10-2015 Dental MARNI MILLER NEUROLOGY PROFESSOR-UPHOLSTERY MECHANIC Start: 03-10-2013 Total knee replacement MARNI SAMSON NEUROLOGY PROFESSOR-UPHOLSTERY MECHANIC Start: 03-10-2000 Decompression of med rufina nerve MARNI SAMSON NEUROLOGY PROFESSOR-UPHOLSTERY MECHANIC Start: 03-10-1989 Decompression of med rufina nerve MARNI SAMSON NEUROLOGY PROFESSOR-UPHOLSTERY MECHANIC Start: 03-10-1964 Dilation and curetta ge of uterus MARNI SAMSON NEUROLOGY PROFESSOR-UPHOLSTERY MECHANIC Start: 03-10-1944 Tonsil and adenoid s tructure (body structure) MARNI SAMSON NEUROLOGY [email or web address] Arthroplasty of shoulder KELSEY SAMSON NEUROLOGY PROFESSORExhale Fans Arthroscopy of knee MARNI SAMSON NEUROLOGY PROFESSORExhale Fans Cholecystectomy MARNI BOB NEUROLOGY [email or web address] Extraction of cataract RICCARDO SAMSON NEUROLOGY PROFESSORExhale Fans H/O: hysterectomy MARNI MILLER NEUROLOGY PROFESSORExhale Fans History of lumbar fusion KELSEY SAMSON NEUROLOGY PROFESSORExhale Fans History of total rep lacement of right hip joint MARNI SAMSON NEUROLOGY PROFESSORExhale Fans Neuroplasty &/transp os median nrv carpal tunne MARNI SAMSON NEUROLOGY PROFESSORExhale Fans Spinal arthrodesis MARNI SAMSON NEUROLOGY PROFESSORExhale Fans Plan of Treatment Date Care Activity Detail Author Start: 10-23-2026 Diabetes Screening Diabetes Screenin [facility] Start: 09-20-2026 Diabetes Screening Diabetes Screenin [facility] Start: 08-11-2025 Creatinine measurement Creatinine Le nikky [facility] Start: 08-11-2025 Potassium measurement Potassium Bethany willingham [facility] Start: 08-06-2025 Echocardiography Echocardiogram [facility] Start: 02-21-2025 End: 02-21-2025 Patient encounter procedure 02/21/2025 9:30 AM EST Office Visit [facility] Pulmonary and Sleep Medicine [facility] [address] [place] [address] Paulette Ram NP [address] [place] [address] [facility] Pulmonary and Sleep Medicine [facility] Start: 09-01-2024 End: 09-01-2025 XR Chest 2 Views XR chest 2 views Imaging Routine Community acquired pneumonia of right lower lobe of lung Expected: 09/01/2024 (Approximate), Expires: 09/01/2025 [facility] Work Phone: Comment on above: Expected: 09/01/2024 (Approximate), Expires: 09/01/2025 Start: 09-01-2024 End: 09-01-2024 Patient encounter procedure 09/01/2024 9:30 AM EDT Office Visit [facility] Pulmonary [facility] Sleep Medicine [facility] [address] [place] [address] Paulette Ram NP [address] [place], [place] [id number] [facility] Pulmonary [facility] Sleep Medicine [facility] Start: 03-10-2024 Medicare Advantage A nnual Wellness Visit Medicare Advantage Annual Wellness Visit [facility] Start: 11-09-2023 Covid-19 Vaccine ( season) Covid-19 Vaccine ( season) [facility] Start: 11-09-2023 COVID-19 Vaccine ( season) COVID-19 Vaccine ( season) [facility] Start: 11-09-2023 Influenza vaccination Influenza Vacc ine (#1) [facility] Start: 03-10-2023 Advance Directive Discussion Advance Directive Discussion [facility] Start: 03-10-2023 Behavioral Health Screening Behavioral Health Screening [facility] Start: 11-08-2022 Covid-19 Vaccine ( season) Covid-19 Vaccine ( season) [facility] Start: 03-22-2021 Shingrix Vaccine (2 of 2) Nation grix Vaccine (2 of 2) [facility] Start: 03-22-2021 Zoster Vaccines (2 of 2) Zoster Vacc gutierrez (2 of 2) [facility] Start: 2013 RSV Immunization for Adults (1 - 1-dose 75+ series) RSV Immunization for Adults (1 - 1-dose 75+ series) [facility] Start: 11-19-2003 Screening for osteoporosis Bone Dens ity Screening [facility] Start: 1998 RSV Vaccine (1 - 1-d ose 60+ series) RSV Vaccine (1 - 1-dose 60+ series) [facility] Start: 09-11-1958 DTaP/Tdap/Td Vaccine s (1 - Tdap) DTaP/Tdap/Td Vaccines (1 - Tdap) [facility] Start: 1957 Urine microalbumin profile DTa P,Tdap,Td Vaccine (1 - Tdap) [facility] Start: 1956 Anxiety Screening Anxiety Screening [facility] Start: 1956 Depression Screening Depression Scre ening [facility] Start: 1950 Depression Monitoring Depression Mon itoring [facility] Start: 1940 Lipid panel Lipid Panel [facility] Start: 1940 Screening for osteoporosis Bone Dens ity Scan [facility] Start: 1938 Thyroid stimulating hormone measurement TSH Level [facility] Immunizations Immunization Date Immunization Notes Care Provider [facility] 02-26-2023 influenza, high dose seasonal, preservative-free; Translations: [Fluad Quadrivalent PF ] WAQAS GONZALEZ MD [facility] Comment on above: Result Comment: veri fied by Shira Barnes LPN 02-26-2023 influenza virus vacc ine, unspecified formulation Kalli De Anda APRN.UPHOLSTERY MECHANIC Work Phone: [facility] 01-23-2022 influenza, high dose seasonal, preservative-free DR NASRA MENEZES MD [facility] 02-28-2021 SARS-CoV-2 (COVID-19 ) mRNA-[address] NASRA MENEZES MD [facility] 01-25-[address] NASRA MENEZES MD [facility] 12-11-2020 influenza, injectabl e, quadrivalent, contains preservative; Translations: [Fluad Quadrivalent PF ] MARNI SAMSON APRN-UPHOLSTERY MECHANIC [facility] 07-04-2020 SARS-CoV-2 (COVID-19 ) mRNA-1273 vaccine MARNI SAMSON APRN-UPHOLSTERY MECHANIC [facility] Comment on above: Result Comment: 2nd dose 06-01-2020 SARS-CoV-2 (COVID-19 ) mRNA-1273 vaccine [facility]NI [facility] Comment on above: Result Comment: 1st dose 01-13-2020 Influenza vaccine, quadrivalent, adjuvanted; Translations: [Fluad Quadrivalent adjuvanted] MARNI SAMSON [facility] 01-06-2019 Influenza, injectabl e, Madin Buckner Canine Kidney, preservative free, quadrivalent; Translations: [Flucelvax PF Quadrivalent ] MARNI SAMSON [facility] 12-07-2018 pneumococcal conjuga te vaccine, 13 valent; Translations: [Prevnar 13] MARNI SAMSON [facility] 11-25-2005 pneumococcal polysaccharide vaccine, 23 valent MARNI SAMSON [facility] Payers Date Payer Category Payer Medicare HMO [employer] AAR MEDICAR E ADVANTAGE [id number] 2023 Self-pay 2023 Unknown [id number] 2023 Medicare [id number] 2023 Medicaid [facility] MEDICAID MYC ARE [facility] MEDICAID [id number] 2023-Present [phone] [address] [place] [address] Medicaid [id number] 2023 Medicare [facility] AARP MEDICAR E [facility] MEDICARE HMO [id number] 2023-Present [phone] [address] [address] [place] [address] HMO [id number] 2016 Private Health Insurance [id number] 1938 Unknown [id number] 2.16.840.1.254334.3.579. 2.356 1938 Unknown [id number] 2.16.840.1.864446.3.579. 2.356 1938 Unknown [id number] 2.16.840.1.929318.3.579. 2.62 1938 Unknown [id number] 2.16.840.1.803813.3.579. 2.62 1938 Unknown [id number] 2.16.840.1.328332.3.579. 2.62 1938 Unknown [id number] 2.16.840.1.085746.3.579. 2.62 1938 Unknown [id number] 2.16.840.1.417879.3.579. 2.62 1938 Unknown [id number] 2.16.840.1.446049.3.579. 2.62 1938 Unknown [id number] 2.16.840.1.182222.3.579. 2.627 1938 Unknown [id number] 2.16.840.1.403919.3.579. 2.1069 Private Health Insurance [id number] Unknown [id number] Unknown [id number] 2.16.840.1.415999.3.579. 2.462 Unknown [id number] 2.16.840.1.933406.3.579. 2.462 Unknown [id number] 2.16.840.1.492767.3.579. 2.462 Unknown [id number] 2.16.840.1.604756.3.579. 2.462 Unknown [id number] 2.16.840.1.499099.3.579. 2.462 Unknown [id number] 2.16.840.1.771155.3.579. 2.462 Unknown [id number] 2.16.840.1.482034.3.579. 2.462 Unknown [id number] 2.16.840.1.676889.3.579. 2.462 Unknown [id number] 2.16.840.1.777254.3.579. 2.462 Unknown [id number] 2.16.840.1.430817.3.579. 2.462 Unknown [id number] 2.16.840.1.652853.3.579. 2.462 Unknown [id number] 2.16.840.1.028305.3.579. 2.462 Social History Date Type Detail Facility Tobacco Tobacco Use: For mellisa smoker- quit 1960. Type: Cigarettes. [facility] Sex Assigned At Female [facility] Tobacco smoking status No Smokin g Status Entered [facility] smoking consumption unknown [facility] Start: 09-15-2023 End: 08-04-2024 History of Social function [place] Start: 09-15-2023 End: 08-04-2024 [facility] Utilities [facility] Has the electric, [employer] s, oil, or water company threatened to shut off services in your home in past 12Mo No [facility] (I/We) worried miguel er (my/our) food would run out before (I/we) got money to buy more. Never true [facility] In the past 12 month s, has lack of transportation kept you from medical appointments or from getting medications? No [facility] Start: 1940 Sex Assigned At Not on file [facility] Start: 08-04-2024 Tobacco smoking status NHIS Never smoked tobacco [facility] Start: 08-04-2024 Tobacco use and exposure Smokeless tobacco non-user [facility] How often to you hav e a drink containing alcohol? Never [facility] How hard is it for y ou to pay for the very basics like food, housing, medical care, and heating Not very hard [facility] Do you feel stress - tense, restless, nervous, or anxious, or unable to sleep at night because your mind is troubled all the time - these days [OSQ] Only a little [facility] Start: 10-08-2021 Sex Female (finding) [facility] Functional Status Date Assessment Result Facility 08-04-2024 Total score [AUDIT-C] 0 08/05/19 25 5:13 AM Genaro Bryan, RN [facility] 06-20-2023 Functional Status Repositions se lf, Encouraged/reinforced importance of turning [facility] 06-20-2023 Functional Status Room check performed [facility] 06-20-2023 Functional Status Mod I [facility] 06-20-2023 Functional Status [facility] 06-20-2023 Functional Status [facility] 06-20-2023 Functional Status [facility] 06-19-2023 Functional Status [facility] 06-19-2023 Functional Status Pt wanting to get aide to come into her home and assist her around the house. Pt reports that she was looking into [facility] but cannot afford it. [facility] 06-19-20[address] Functional [address]ilevel home [facility] 06-19-2023 Functional Status Breakfast Percent 100 A [facility] 06-18-2023 Functional Status [facility] 06-18-2023 Functional Status Sensory Deficits None A [facility] 02-16-2022 Functional Status bilateral knee high [facility] 02-16-2022 Functional Status Room check performed [facility] 02-16-2022 Functional Status [facility] 02-16-2022 Functional Status [facility] 02-15-2022 Functional Status [facility] 02-15-2022 Functional Status 25 [facility] 02-15-2022 Functional Status [facility] 02-15-2022 Functional Status Pt wanting to get aide to come into her home and assist her around the house. Pt reports that she was looking into [facility] but cannot afford it. [facility] 02-14-2022 Functional Status [facility] 02-13-2022 Functional Status [facility] 02-13-2022 Functional Status Assistive Device Cane [facility] Mental Status Date Assessment Result Facility 06-20-2023 Mental Status Orientation Oriented x [address] [facility] 06-20-2023 Mental Status Orientation Assessment Orie nted x [address] [facility] 06-20-2023 Mental Status [facility] 06-20-2023 Mental Status [facility] 02-16-2022 Mental Status Orientation Oriented x [address] [facility] 02-16-2022 Mental Status [facility] 02-15-2022 Mental Status [facility] 02-15-2022 Mental Status [facility] Clinical Notes 08-29-2020 to 09-01-2024 Paulette Ram NP - 09/01/2024 9:30 AM EDTPatient InstructionsTelephone Encounter - Arnoldo Bustillos RCP - 08/13/2024 2:18 PM EDTTelephone Encounter - Arnoldo Bustillos RCP - 08/13/2024 2:18 PM EDT Note Date & Type Note Facility 09-01-2024 History of Present illness Narrative Images from the original note were not included. [facility] Medical [facility] Pulmonary Medicine [address] [place] [address] Date of Service: 09/01/2024 Visit type: An [...] Followed by pulmonary Presents today accompanied by cdl driver, Asim, from [facility] where patient resides. Patient is known as [...] prevent readmissions to the hospital. 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 Rinse mouth with water after use to reduce aftertaste and incidence of candidiasis. Do not swallow., Disp: 2 each, Rfl: 0 [5] No family history on file. documented in this encounter [facility] 09-01-2024 Instructions Ronda Chapman - 09/01/2024 9:30 AM EDT YOUR APPOINTMENT TODAY WAS WITH THE [facility], COPD CLINIC, PULMONARY AND SLEEP MEDICINE OFFICE. PLEASE CALL OUR OFFICE AT [phone] for our [place] office location or [phone] for our [place] location, IF YOU HAVE NOT RECEIVED YOUR [...] to make improvements. COVID-19 VACCINATION INFORMATION: PH. [phone] [email or web address] [facility] Central Scheduling [phone] [facility] Sleep Scheduling [phone] documented in this encounter [facility] 08-13-2024 Telephone encounter Note COPD Navigator Note Called patient on home phone. No answer. Left Voicemail. [facility] 08-13-2024 Miscellaneous Notes COPD Navigator Note Called patient on home phone. No answer. Left Voicemail. documented in this encounter [facility] 08-11-2024 Nurse Note Patient sent with belongings with transport to facility at this time. [facility] 08-11-2024 Nurse Note Patient sent with belongings with transport to facility at this time. Report called to facility [facility], hallway 100. RN familiar with patient. Waiting [...] intact. Pt stood with max assist from can line operator for posterior assessment. Blanchable erythema/purple tissues noted to bilateral buttocks. DTI noted to right buttock, linear area of nonblanchable purple tissues, measures 1cm x 0.3cm, with surrounding blanchable erythema and purple tissues. See photo below. Wound BASE BRANDER group consulted. Brief in place. Pt incontinent [...] Verbalized understanding. Prevention Measures in place, including: [place] sheet with pillows/wedges, Heels elevated off bed on pillows, Zinc/Moisture Barrier ointment (applied), Waffle chair cushion (ordered for pt). Skin Care precaution order set in place. Dietitian consult order placed d/t wound. PT consult in place. D/W nursing staff. Right buttock Will continue to follow pt. Please secure chat for any questions or concerns. Mago Cavazos RN documented in this encounter [facility] 08-11-2024 Nurse Note Report called to facility [facility], hallway 100. RN familiar with patient. Waiting on transport. [facility] 08-11-2024 History of Present illness Narrative Images from the original note were not included. PHYSICAL THERAPY [facility] Treatment Note Name/MRN: Krish Peralta ([id number]) Date of : 1940 Age: 83 y.o. Room[facility]Bed: [facility] A Visit #: 5 out of 8 Discharge Recommendation: Residential Facility Equipment Needed: No Assessment Pt continues to make good overall progress towards established therapy goals this date. Remains limited by SOB and fatigue. Pt completed STS transfers with fww at [facility], Gait training with fww completed at [facility]/SBA. Pt tolerated all activity well and gave [...] Pt completed gait training with fww at [facility] progressing to SBAx1. Cues for proper foot [...] Raw Score (No Stairs) : 15 JH-HLM -HL Score: Walked 25 ft or more (i.e. [...] from the original note were not included. [facility] Pulmonary Medicine [address] [place] [id number] Patient - Krish Peralta, Age - 83 y.o. - 1940 Room Number - B2-255/B2-255 A Consulting - Helen Wan DO Primary Care Physician - No primary care provider on file[id number] Date of Admission - 08/03/2024 4:21 PM [...] data in the 24 hours ending 08/11/24 09 Exam General appearance: Awake and alert intermittently [...] Okay for discharge from pulmonary standpoint Darrick [facility] Pulmonary Medicine [facility] [1] amLODIPine, 5 mg, Oral, q24h enoxaparin, [...] Continue diet as ordered Adult diet Regular -Siebel Consultant ordering meals -notified diet office of pt [...] muscle mass loss Fluid Accumulation: (moderate) Extremities Roll Clamp Operator Strength: Not Performed Nutrition Assessment: 83 y.o [...] On: Kcal/kg Weight Used for Energy Requirements: [place] Weight for Energy Calculation (kg): 45 kg Total Energy Requirements (kcals/day): 3056-9399 (25-30 kcal/kg IBW) Weight Used for Protein Requirements: [place] Weight in Kg Used for Protein Requirements: [...] lb) (11/11/23) % Weight Change (Calculated): 11.7 [place] Body Weight (lbs) (Calculated): 100 lbs [place] Body Weight (Kg) (Calculated): 45 kg % [place] Body Weight (Calculated): 220 % BMI (kg/m2) [...] Continue current diet Kamilah Rodriguez RD Contact: *[phone] or via Secure Chat Hospitalist Progress Note 08/10/[id number]: Please page nv ([phone]) for patient care issues. [phone]: Please page [facility] Hospitalist for any issues. Subjective: Admit [...] EMMA RICHARDS Mobile Relation: Daughter Preferred language: [place] Islander Flanging Machine Operator needed? No Secondary Emergency Contact: LIONEL REYNOSO Mobile Relation: Son Preferred language: [place] Flanging Machine Operator needed? No Helen Wan DO Division of Hospitalist Medicine Inpatient Medical Services/[facility] PAGER: Epic chat [1] No [...] from the original note were not included. [facility] Pulmonary Medicine [address] [place] [id number] Patient - Krish Peralta, Age - 83 y.o. - 1940 Room Number - B2-255/B2-255 A Consulting - Helen Wan DO Primary Care Physician - No primary care provider on file. [facility] # - [id number] Date of Admission - 08/03/2024 4:21 PM Hospital Day - 7 Chief Complaint: shortness of breath Krish Sujata Peralta is a 83 y.o. female who [...] Results from last 7 days Lab Units 08/10/243 08/09/249 08/08/24 0313 SODIUM mmol/L 137 138 139 [...] Results from last 7 days Lab Units 08/10/243 08/09/249 08/08/24 0313 ALK PHOS U/L 78 78 [...] cephalexin tolerating well Darrick Marcum Pulmonary Medicine [facility] [1] amLODIPine, 5 mg, Oral, q24h cephalexin, [...] original note were not included. PHYSICAL THERAPY [facility] Treatment Note Name/MRN: Krish Peralta ([id number]) Date of : 1940 Age: 83 y.o. Room/Bed: B2-255/[facility]255 A Visit #: 4 out of 8 (visits added by PT due to continued need for acute skilled PT) Discharge Recommendation: Residential Facility Equipment Needed: No Assessment Pt demos [...] Raw Score (No Stairs) : 15 [facility]-HLM -[facility] Score: Walked 25 ft or more (i.e. [...] x1) Jocelyn Tian PT Hospitalist Progress Note 08/09/[id number]: Please page me ([phone]) for patient care issues. [phone]: Please page [facility] Hospitalist for any issues. Subjective: Admit [...] the Lasix is helping. Adult diet Regular @JTDU9SERDYH@ 24HR INTAKE/OUTPUT: Intake/Output Summary (Last 24 hours) [...] PLT 153 124* 146 BMP: Recent Labs 08/07/24 01208/08/2431208/09/24318 NA 138 139 138 K 4.4 4.7 4.5 CL 101 100 99 CO2 26 29 29 BUN 28* 21 24* CREATININE 0.79 0.80 0.83 GLUCOSE 74* 118* 118* CALCIUM 9.8 9.8 9.9 ANIONGAP 11 10 10 LIVER PROFILE: Recent Labs 08/07/24 0125 08/08/24 0313 08/09/24 0319 AST 22 16 11 ALT 10 9 [...] recommending SNF (she came from facility at [facility] and plan is to go back to ECF with restorative therapy. However, she is still requiring a lot of O2 (on high flow NC) and pulmonary anticipating fdc weaning and recommending LTACH -check daily labs Extended Emergency Contact Information Primary Emergency Contact: RALPHEMMA Mobile Relation: Daughter Preferred language: [place] Islander Flanging Machine Operator needed? No Secondary Emergency Contact: EDGARDO,LIONEL Mobile Relation: Son Preferred language: [place] Islander Flanging Machine Operator needed? No Gee Givens MD Division of Hospitalist Medicine Inpatient Medical Services/[facility] PAGER: Epic chat [1] No [...] from the original note were not included. [facility] Pulmonary Medicine [address] [place] [address] Patient - Krish Peralta, Age - 83 [...] as tolerated, keeping her on dry side [facility] Pulmonary Medicine [facility] [1] amLODIPine, 5 mg, Oral, q24h cefTRIAXone, [...] original note were not included. PHYSICAL THERAPY [facility] Treatment Note Name/MRN: Krish Peralta ([id number]) Date of : 1940 Age: 83 y.o. Room/Bed: [facility]255/[facility] A Visit #: 3 out of 5 Discharge Recommendation: Residential Facility Equipment Needed: No Assessment Pt continues [...] 08/09/2024 8:39 AM EDT Hospitalist Progress Note 08/08/[id number]: Please page me ([phone]) for patient care issues. [phone]: Please page [facility] night Hospitalist for any issues. [...] maybe a little sob. Adult diet Regular @[id number]@ 24HR INTAKE/OUTPUT: Intake/Output Summary (Last 24 hours) at 08/08/2024 1112 Last data filed at 08/07/2024 195 Gross per 24 hour Intake -- Output [...] recommending SNF (she came from facility at [facility] and plan is to go back to [facility] with restorative therapy. However, she is still requiring a lot of O2 (on high flow NC) and pulmonary anticipating buttermaker helper weaning and recommending LTACH -check daily labs Extended Emergency Contact Information Primary Emergency Contact: EMMA RICHARDS Mobile Relation: Daughter Preferred language: [place] Islander Flanging Machine Operator needed? No Secondary Emergency Contact: LIONEL REYNOSO Mobile Relation: Son Preferred language: [place]er Flanging Machine Operator needed? No Gee Givens MD Division of Hospitalist Medicine Inpatient Medical Services/[facility] PAGER: Epic chat [1] No [...] mg, Oral, Nightly Hospitalist Progress Note 08/07/2024 [phone]: Please page me ([phone]) for patient care issues. [phone]: Please page [facility] night Hospitalist for any issues. [...] maybe a little sob. Adult diet Regular @[id number]@ 24HR INTAKE/OUTPUT: No intake or output data in the 24 hours ending 08/07/24 1307 Past Medical History: Medical History[1] LABS: CBC: Recent Labs 08/06/2423208/07/24 0125 WBC 14.1* 12.1* RBC 4.49 4.86 HGB 13.0 14.1 HCT 39.6 42.1 MCV 88.2 86.6 RDW 13.2 13.5 PLT 160 153 BMP: Recent Labs 08/06/2423208/07/24 012 NA 135* 138 K 3.9 4.4 CL 95* 101 CO2 30 26 BUN 27* 28* CREATININE 0.84 0.79 GLUCOSE 123* 74* CALCIUM 10.3* 9.8 ANIONGAP 10 11 LIVER PROFILE: Recent Labs 08/06/2423208/07/24 0125 AST 16 22 ALT 6 10 [...] recommending SNF (she came from facility at [facility] and plan is to go back to [facility] with restorative therapy. However, she is still requiring a lot of O2 (on high flow NC) and pulmonary anticipating buttermaker helper weaning and recommending LTACH -check daily labs Extended Emergency Contact Information Primary Emergency Contact: EMMA RICHARDS Mobile Relation: Daughter Preferred language: [place] Islander Flanging Machine Operator needed? No Secondary Emergency Contact: LIONEL REYNOSO Mobile Relation: Son Preferred language: [place] Islander Flanging Machine Operator needed? No Gee Givens MD Division of Hospitalist Medicine Inpatient Medical Services/[facility] PAGER: Epic chat [1] No [...] original note were not included. PHYSICAL THERAPY [facility] Treatment Note Name/MRN: Krish Peralta ([id number]) Date of : 1940 Age: 83 y.o. Room/Bed: [facility] A Visit #: 2 out of 5 Discharge Recommendation: Residential Facility Equipment Needed: No Assessment Pt seated [...] from the original note were not included. [facility] Pulmonary Medicine [address] [place] [address] Patient - Krish Peralta, Age - 83 [...] from last 7 days Lab Units 08/06/24 023 WBC AUTO 10*3/uL 14.1* HEMOGLOBIN g/dL 13.0 [...] Neri MD Pulmonary & Critical Care Medicine [facility] [1] amLODIPine, 5 mg, Oral, q24h cefTRIAXone, [...] in petrolatum [3] Hospitalist Progress Note 08/06/2024 [phone]: Please page me ([phone]) for patient care issues. [phone]: Please page [facility] Hospitalist for any issues. Subjective: Admit [...] no fevers or chills Adult diet Regular @[id number]@ 24HR INTAKE/OUTPUT: No intake or output data in the 24 hours ending 08/06/24 0937 Past Medical History: Medical History[1] LABS: CBC: Recent Labs 08/03/24 1712 08/04/24 1135 08/06/24 0233 WBC 11.7* -- 14.1* [...] recommending SNF (she came from facility at [facility] and plan is to go back to [facility] with restorative therapy. However, she is still requiring a lot of O2 (on high flow NC) and pulmonary anticipating fdc weaning and recommending LTACH -check daily labs Extended Emergency Contact Information Primary Emergency Contact: EMMA RICHARDS Mobile Relation: Daughter Preferred language: [place] Islander Flanging Machine Operator needed? No Secondary Emergency Contact: LIONEL REYNOSO Mobile Relation: Son Preferred language: [place]er Flanging Machine Operator needed? No Gee Givens MD Division of Hospitalist Medicine Inpatient Medical Services/[facility] PAGER: Epic chat [1] No [...] original note were not included. PHYSICAL THERAPY [facility] Treatment Note Name/MRN: Krish Peralta ([id number]) Date of : 1940 Age: 83 y.o. Room/Bed: [facility] B Visit #: 1 out of 5 Discharge Recommendation: Residential Facility Equipment Needed: No Assessment Pt continues [...] Chuck Ruvalcaba PT Hospitalist Progress Note 08/05/2024 [phone]: Please page me ([phone]) for patient care issues. [phone]: Please page [facility] Hospitalist for any issues. Subjective: Admit Date: 08/03/2024 PCP: No primary care provider on file. Room#: -243/B2-243 B Interval History: No overnight issues. Patient patient currently sitting up in chair. She says she is breathing okay but admits to being a little short of breath. Currently no chest pain. She is tell me she needs to get back to her facility? She denies any fevers or chills. No abdominal pain. No nausea or vomiting. Adult diet Regular @[id number]@ 24HR INTAKE/OUTPUT: Intake/Output Summary (Last 24 hours) [...] EMMA RICHARDS Mobile Relation: Daughter Preferred language: [place] Islander Flanging Machine Operator needed? No Secondary Emergency Contact: LIONEL REYNOSO Mobile Relation: Son Preferred language: [place] Islander Flanging Machine Operator needed? No Gee Givens MD Division of Hospitalist Medicine Inpatient Medical Services/[facility] PAGER: Epic chat [1] No [...] from the original note were not included. [facility] Pulmonary Medicine [address] [place], [place] [id number] Patient - Krish Peralta, Age - 83 y.o. - 1940 Room Number - B2-243/B2-243 B Consulting - Gee Givens MD Primary Care Physician - No [facility] file[id number] Date of Admission - 08/03/2024 4:21 PM [...] Neri MD Pulmonary & Critical Care Medicine [facility] [1] amLODIPine, 5 mg, Oral, q24h cefTRIAXone, [...] sodium chloride 0.9% [3] Hospitalist Progress Note 08/04/20246999454-6530: Please page me ([phone]) for patient care issues. [phone]: Please page [facility] night Hospitalist for any issues. Subjective: Admit Date: 08/03/2024 PCP: No primary care provider on file. Room#: B2-243/-243 B Interval History: No overnight issues. Patient [...] No fevers or chills. Adult diet Regular @[id number]@ 24HR INTAKE/OUTPUT: Intake/Output Summary (Last 24 hours) at 08/04/2024 1149 Last data filed at 08/04/2024 0942 Gross per 24 hour Intake 50 ml Output 150 ml Net -100 ml Past Medical History: Medical History[1] LABS: CBC: Recent Labs 08/03/24171108/04/24 1135 WBC 11.7* -- RBC 4.57 -- HGB 13.2 13.7 HCT 41.5 -- MCV 90.8 -- RDW 14.1 -- PLT 141 -- BMP: Recent Labs 08/03/241711 NA 136 K 4.0 CL 96* CO2 [...] EMMA RICHARDS Mobile Relation: Daughter Preferred language: [place] Islander Flanging Machine Operator needed? No Secondary Emergency Contact: LIONEL REYNOSO Mobile Relation: Son Preferred language: [place]er Flanging Machine Operator needed? No Gee Givens MD Division of Hospitalist Medicine Inpatient Medical Services/[facility] PAGER: Michele clancy [1] No past medical history on file. [2] [3] azithromycin, 500 mg, IntraVENous, q24h cefTRIAXone, 1,000 mg, IntraVENous, q24h enoxaparin, 30 mg, SubCUTAneous, 2 times per day ipratropium-albuterol, 1 ampule, Nebulization, q4h WA sodium chloride 0.9%, 10 mL, IntraVENous, 2 times per day Images from the original note were not included. PHYSICAL THERAPY [facility] Initial Evaluation Name/MRN: Krish Peralta ([id number]) Evaluation Date: 08/04/2024 Date of : 1940 Admission Date: 08/03/2024 4:21 PM Age: 83 y.o. Room/Bed: [facility] B Discharge Recommendation: Residential Facility Equipment Needed: No Assessment IMPRESSION: Pt [...] Raw Score (No Stairs) : 12 [facility] Score: Static standing (1 or more minutes) [...] of Care supervision is transferred to a [facility] Therapy Services Physical Therapist. Goals and/or [...] Jocelyn Tian PT documented in this encounter [facility] 08-11-2024 Note Formatting of this n ote might be different from the original. Discharge med list transmitted to [facility]URN BACK TO [facility] via [facility] per TCC request. [facility] 08-11-2024 Note Formatting of this n ote might be different from the original. Discharge med list transmitted to RETURN BACK TO [facility] via [facility] per TCC request. [facility] 08-11-2024 Note Formatting of this n ote might be different from the original. Rounds this am DCP: DC today Apostolic supervisor shop time scheduled for 430 Facility notified RN notified with time and P# for report ANTIQUER tasked to send DC packet and MAR to acility [facility] 08-11-2024 Note Formatting of this n ote might be different from the original. Rounds this am DCP: DC today Apostolic supervisor shop time scheduled for 430 Facility notified RN notified with time and P# for report ANTIQUER tasked to send DC packet and MAR to acility [facility] 08-11-2024 Miscellaneous Notes Discharge med list transmitted to RETURN BACK TO [facility] via [facility] per TCC request. Rounds this am DCP: DC today Apostolic supervisor shop time scheduled for 430 Facility notified RN notified with time and P# for report ANTIQUER tasked to send DC packet and MAR [...] updated notes to return back to [facility] via [facility] per [facility] request. Await review and response regarding ability to accept. TCC notified. Care Management Progress Note -Pt remains on 2E. -Pulmonology following. -O2 now down to 5L. -Receiving IV ATB and Lasix. -Since pt is now down to 5L O2, discharge plan at this time is back to [facility] with restorative therapy. Facility made aware. -marketing assistant manager to follow and assist as needed. [...] 08/08/202453 by Sophy Olmos RN Outcome: Progressing Goal: [...] Progress Note Called daughter Emma Richards @ [phone] to discuss DC planning. Informed her that therapy is recommending SNF at [place]. Informed her that this TCC that her insurance is OON with therapy services at [facility] and that family would have to private pay. Daughter states she would like her to go back with restorative therapy at [facility]. Liaison at [facility] updated on daughter's plan to [...] told this TCC that she is from [facility]. This TCC called daughter Emma Richards @ [phone] and she confirmed that that is where pt is from and plans for her to return at [place]. Daughter states pt sees MD at [facility] and does not have her own PCP. Also pt gets meds supplied form [facility]. PT saw and is recommending SNF at [place]. Informed daughter and she said that pt's insurance is OON with [facility] and they would have to private pay for SNF services. This TCC called [facility] liaison and she confirmed this as well. I will reach back out to daughter to discuss her options, pt may have to go back with [facility] PT/OT possibly? Will continue to follow for DC needs. Length of Stay (Days): 1 GMLOS: No GMLOS Documented Referral placed to return back to [facility] via [facility] per [facility] request. Await review and response regarding ability to accept. TCC notified. documented in this encounter [facility] 08-11-2024 Note Hospitalist Discharg e Summary Krish [...] Disposition: Patient discharged in stable condition to [facility] LABS: CBC: Recent Labs 08/09/2431808/10/2445208/11/24 0620 WBC 9.3 9.2 7.5 RBC 4.87 4.64 4.78 HGB 14.1 13.3 13.7 HCT 43.0 41.1 42.1 MCV 88.3 88.6 88.1 RDW 13.6 13.8 13.9 PLT 146 133* 114* BMP: Recent Labs 08/09/2431808/10/2445208/11/24 06 NA 138 137 137 K 4.5 4.2 [...] These med (more content not included)... [facility] 08-11-2024 Hospital course Narrative Hospitalist Discharge Summary [...] condition to SNF LABS: CBC: Recent Labs 08/09/2431808/10/24 0453 08/11/24 0620 WBC 9.3 9.2 7.5 [...] 10 9 10 LIVER PROFILE: Recent Labs 08/09/24 0319 08/10/24 0453 AST 11 17 ALT 6 9 [...] Your Medications These medications were sent to [facility] [address] [place] [address] Hours: Friday to Friday 10 am to 6 pm predniSONE 10 MG tablet Information about where to get these medications is not yet available Ask your nurse or doctor about these medications ipratropium-albuterol 0.5-2.5 mg/3 mL nebulizer solution Recommended Follow-up: PCP and pulmonology outpatient in 1-2 weeks. @READMISSIONRISK@ Complexity of Follow up: [] Moderate Complexity: follow up within 7-14 calendar days (16257) [x] Severe Complexity: follow up within 7 calendar days (96663) Follow up Testing, Pending results or Referrals [...] frame. Signed: Helen Wan DO Division of [facility] Inpatient Medical Services/[facility] 08/11/2024, 12:53 PM Total time Spent on Discharge: 32 minutes documented in this encounter [facility] 08-11-2024 Hospital Discharge instructions Nancy Barnes RN [...] EMMA RICHARDS Mobile Relation: Daughter Preferred language: [place]er Flanging Machine Operator needed? No Secondary Emergency Contact: LIONEL REYNOSO Mobile Relation: Son Preferred language: [place]er Flanging Machine Operator needed? No Past Surgical History: No past [...] Minimal assistance Toileting Minimal assistance Feeding Independent Facility Environmental Technician Independent Med Delivery no Wound Care Documentation and Therapy: Wound/Incision 08/04/24 Pressure Injury Buttock Right;Medial (Active) Site Assessment Dry;[place];Intact 08/10/242041 Sanam-Wound Assessment Blanchable erythema 08/10/242041 Wound Length (cm) 1 cm 08/04/241529 Wound Width (cm) 0.3 cm 08/04/241529 Wound Surface Area (cm^2) 0.24 cm^2 08/04/241529 Odor None 08/10/242041 Drainage Amount None 08/10/242041 [...] Status Date: 08/03 Discharging to Facility/ Agency [facility]. [address] [id number] Dialysis Facility (if applicable) Name: Address: Dialysis Schedule: Phone: Fax: Gradall Operator/Office Coordinator Receptionist signature: ICIAN SECTION Name: Krish Peralta Prognosis: excellent Condition at Discharge: stable Rehab Potential (if transferring to Rehab): excellent Recommended Labs or Other Treatments After Discharge: none The individual is being admitted to a nursing facility directly from an [facility] or a unit of a [facility] that is not operated by or licensed by [facility] under section 5119.14 or 5160-3-15.1 5 The individual requires the level of services provided by a nursing facility for the condition for which he or she was treated in the hospital and, Physician Certification: I certify the above information and transfer of Krish Peralta is necessary for the continuing treatment of the diagnosis listed and that she requires longterm facility for less than 30 days. Update Admission H&P: No change in H&P PHYSICIAN SIGNATURE: documented in this encounter [facility] 08-11-2024 Note [facility] Wound Care Progress Note Krish Peralta AGE: 83 y.o. GENDER: female : 1940 Subjective: HISTORY of PRESENT ILLNESS HPI Krish Peralta is a 83 y.o. female who presents for a wound care follow up. HPI: Ms. Peralta is a 83 y.o. female with past medical history significant for COPD. Patient presented to the emergency room from longterm facility for shortness of breath. 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 Outpatient wound care center after hospital [...] constipation. [] (more content not included)... [facility] 08-10-2024 Plan of care note Problem: Knowledge Deficit Goal: Patient/family/caregiver demonstrates understanding of disease process, treatment plan, medications, and discharge instructions Outcome: Progressing Problem: Potential for Compromised Skin Integrity Goal: Skin Integrity is Maintained or Improved Outcome: Progressing Problem: Urinary Incontinence Goal: Perineal skin integrity is maintained or improved Outcome: Progressing [facility] 08-10-2024 Note Hospitalist Progress Note 08/10/20246996478-1445: Please page me ([phone]) for patient care issues. [phone]: Please page [facility] night Hospitalist for any issues. Subjective: Admit Date: 08/03/2024 PCP: No primary care provider on file. Room#: -255/[facility] A Interval History: patient admitted for SOB [...] Medical History[1] LABS: CBC: Recent Labs 08/08/243 08/09/2431808/10/24 0453 WBC 7.3 9.3 9.2 RBC 4.73 [...] EMMA RICHARDS Mobile Relation: Daughter Preferred language: [place]er Flanging Machine Operator needed? No Secondary Emergency Contact: LIONEL REYNOSO Mobile Relation: Son Preferred language: [place]er Flanging Machine Operator needed? No Helen Wan DO Division of Hospitalist Medicine Inpatient Medical Services/[facility] PAGER: [employer] chat [1] No past medical history on [...] q8h traZODone, 50 mg, Oral, Nightly [facility] 08-10-2024 Note Formatting of this n ote [...] assistance with scheduling hospital follow-up with pulmonary. [facility] 08-10-2024 Note Formatting of this n ote [...] assistance with scheduling hospital follow-up with pulmonary. T [facility] 08-10-[address] [facility] Wound Care Progress Note Krish Peralta AGE: 83 y.o. GENDER: female : 1940 Subjective: HISTORY of PRESENT ILLNESS HPI Krish Peralta is a 83 y.o. female who presents for a wound care follow up. HPI: Ms. Peralta is a 83 y.o. female with past medical history significant for COPD. Patient presented to the emergency room from longterm [facility] for shortness of breath. Patient admitted with [...] to follow Recommend to follow up at [facility] Out[facility] wound care center after hospital [...] daily. es (more content not included)... [facility] 08-10-2024 Plan of care note Problem: Knowledge [...] 014 by Sophy Olmos RN Outcome: Progressing [facility] 08-10-2024 Plan of care note Problem: Knowledge [...] Interventions Goal: Promote nutritional intake Outcome: Progressing [facility] 08-09-2024 Plan of care note Problem: Knowledge [...] Interventions Goal: Promote nutritional intake Outcome: Progressing [facility] 08-09-2024 Note Hospitalist Progress Note 08/09/2024 [phone]: Please page me ([phone]) for patient care issues. [phone]: Please page [facility] night Hospitalist for any issues. [...] the Lasix is helping. Adult diet Regular @[id number]@ 24HR INTAKE/OUTPUT: Intake/Output Summary (Last 24 hours) at 08/09/2024 1225 Last data filed at 08/09/2024 0556 Gross per 24 hour Intake 300 ml Output 2200 ml Net -1900 ml Past Medical History: Medical History[1] LABS: CBC: Recent Labs 08/07/24 0125 08/08/24 0313 08/09/24 0319 WBC 12.1* 7.3 9.3 RBC 4.86 4.73 4.87 HGB 14.1 13.6 14.1 HCT 42.1 41.9 43.0 MCV 86.6 88.6 88.3 RDW 13.5 13.7 13.6 PLT 153 124* 146 BMP: Recent Labs 08/07/24 0125 08/08/243 08/09/24318 NA 138 139 138 K 4.4 4.7 [...] recommending SNF (she came from facility at [facility] and plan is to go back [place] [facility] with restorative therapy. However, she is still requiring a lot of O2 (on high flow NC) and pulmonary anticipating buttermaker helper weaning and recommending LTACH -check daily labs Extended Emergency Contact Information Primary Emergency Contact: IRVINEMMA Vigil Mobile Relation: Daughter Preferred language: [place]er Flanging Machine Operator needed? No Secondary Emergency Contact: LIONEL REYNOSO Mobile Relation: Son Preferred language: [place]er Flanging Machine Operator needed? No Gee Givens MD Division of Hospitalist Medicine Inpatient Medical Services/[facility] PAGER: Epic chat [1] No past medical history on file. [2] [3] amLODIPine, 5 mg, Oral, q24h cephalexin, 1,000 mg, Oral, q8h enoxaparin, 30 mg, SubCUTAneous, 2 times per day escitalopram, 10 mg, Oral, Nightly furosem (more content not included)... [facility] 08-09-2024 Note Formatting of this n ote might be different from the original. Sent updated notes [facility]. Await review and response regarding ability to accept. TCC notified. [facility] 08-09-2024 Note Formatting of this n ote might be different from the original. Sent updated notes to [facility]. Await review and response regarding ability to accept. TCC notified. [facility] 08-09-2024 Note Formatting of this n ote might be different from the original. Care Management Progress Note -Pt remains on 2E. -Pulmonology following. -O2 now down to 5L. -Receiving IV ATB and Lasix. -Since pt is now down to 5L O2, discharge plan at this time is back to [facility] with restorative therapy. Facility made aware. -marketing assistant manager to follow and assist as needed. Length of Stay (Days): 6 GMLOS: 4 [facility] 08-09-2024 Note Formatting of this n ote might be different from the original. Care Management Progress Note -Pt remains on 2E. -Pulmonology following. -O2 now down to 5L. -Receiving IV ATB and Lasix. -Since pt is now down to 5L O2, discharge plan at this time is back to [facility] with restorative therapy. Facility made aware. -marketing assistant manager to follow and assist as needed. Length of Stay (Days): 6 GMLOS: 4 [facility] 08-09-2024 Note Care Management Prog ress Note -Pt remains on 2E. -Pulmonology following. -O2 now down to 5L. -Receiving IV ATB and Lasix. -Since pt is now down to 5L O2, discharge plan at this time is back to [facility] with restorative therapy. Facility made aware. -marketing assistant manager to follow and assist as needed. Length of Stay (Days): 6 GMLOS: 4 [facility] 08-09-2024 Plan of care note Problem: Knowledge [...] 08/09/2024206 by Sophy Olmos RN Outcome: Progressing 08/09/2024 015 by Sophy Olmos RN Outcome: Progressing Problem: Urinary Incontinence Goal: Perineal skin integrity is maintained or improved 08/09/2024206 by Sophy Olmos RN Outcome: Progressing 08/09/2024 015 by Sophy Olmos RN Outcome: Progressing Problem: Problem Interventions Goal: Promote nutritional intake 08/09/2024206 by Sophy Olmos RN Outcome: Progressing 08/09/2024 015 by Sophy Olmos RN Outcome: Progressing [facility] 08-09-2024 Plan of care note Problem: Knowledge [...] Interventions Goal: Promote nutritional intake Outcome: Progressing [facility] 08-08-2024 Plan of care note Problem: Knowledge Deficit Goal: Patient/family/caregiver demonstrates understanding of disease process, treatment plan, medications, and discharge instructions Outcome: Progressing Problem: Potential for Compromised Skin Integrity Goal: Skin Integrity is Maintained or Improved Outcome: Progressing Problem: Urinary Incontinence Goal: Perineal skin integrity is maintained or improved Outcome: Progressing Problem: Problem Interventions Goal: Promote nutritional intake Outcome: Progressing [facility] 08-08-2024 Note Hospitalist Progress Note 08/08/2024 [phone]: Please page me ([phone]) for patient care issues. [phone]: Please page [facility] Hospitalist for any issues. Subjective: Admit [...] maybe a little sob. Adult diet Regular @[id number]@ 24HR INTAKE/OUTPUT: Intake/Output Summary (Last 24 hours) at 08/08/2024 1112 Last data filed at 08/07/2024 1952 Gross per 24 hour Intake -- Output 800 ml Net -800 ml Past Medical History: Medical History[1] LABS: CBC: Recent Labs 08/06/24 0233 08/07/24 0125 08/08/24 0313 WBC 14.1* 12.1* 7.3 RBC 4.49 4.86 4.73 HGB 13.0 14.1 13.6 HCT 39.6 42.1 41.9 MCV 88.2 86.6 88.6 RDW 13.2 13.5 13.7 PLT 160 153 124* BMP: Recent Labs 08/06/243 08/07/24 0125 08/08/24 0313 NA 135* 138 139 K 3.9 4.4 4.7 CL 95* 101 100 CO2 30 26 29 BUN 27* 28* 21 CREATININE 0.84 0.79 0.80 GLUCOSE 123* 74* 118* CALCIUM 10.3* 9.8 9.8 ANIONGAP 10 11 10 LIVER PROFILE: Recent Labs 08/06/243 08/07/245 08/08/24 0313 AST 16 22 16 ALT [...] recommending SNF (she came from facility at [facility] and plan is to go back to [facility] with restorative therapy. However, she is still requiring a lot of O2 (on high flow NC) and pulmonary anticipating buttermaker helper weaning and recommending LTACH -check daily labs Extended Emergency Contact Information Primary Emergency Contact: IRVINEMMA Vigil Mobile Relation: Daughter Preferred language: [place] Islander Flanging Machine Operator needed? No Secondary Emergency Contact: LIONEL REYNOSO Mobile Relation: Son Preferred language: [place]er Flanging Machine Operator needed? No Gee Givens MD Division of Hospitalist Medicine Inpatient Medical Services/[facility] PAGER: Epic chat [1] No [...] times per (more content not included)... [facility] 08-08-2024 Plan of care note Problem: Knowledge Deficit Goal: Patient/family/caregiver demonstrates understanding of disease process, treatment plan, medications, and discharge instructions 08/08/2024624 by Sophy Olmos RN Outcome: Progressing 08/08/2024552 by Sophy Olmos RN Outcome: Progressing Problem: Potential for Compromised Skin Integrity Goal: Skin Integrity is Maintained or Improved 08/08/2024624 by Sophy Olmos RN Outcome: Progressing 08/08/202453 by Sophy Olmos RN Outcome: Progressing Goal: [...] 08/08/2024552 by Sophy Olmos RN Outcome: Progressing [facility] 08-08-2024 Plan of care note Problem: Knowledge [...] Interventions Goal: Promote nutritional intake Outcome: Progressing [facility] 08-07-2024 Plan of care note Problem: Knowledge Deficit Goal: Patient/family/caregiver demonstrates understanding of disease process, treatment plan, medications, and discharge instructions Outcome: Progressing Problem: Potential for Compromised Skin Integrity Goal: Skin Integrity is Maintained or Improved Outcome: Progressing Problem: Urinary Incontinence Goal: Perineal skin integrity is maintained or improved Outcome: Progressing Problem: Problem Interventions Goal: Promote nutritional intake Outcome: Progressing [facility] 08-07-2024 Note Hospitalist Progress Note 08/07/2024 [phone]: Please page me ([phone]) for patient care issues. [phone]: Please page [facility] Hospitalist for any issues. Subjective: Admit [...] maybe a little sob. Adult diet Regular @[id number]@ 24HR INTAKE/OUTPUT: No intake or output data [...] recommending SNF (she came from facility at [facility] and plan is to go back to [facility] with restorative therapy. However, she is still requiring a lot of O2 (on high flow NC) and pulmonary anticipating fdc weaning and recommending LTACH -check daily labs Extended Emergency Contact Information Primary Emergency Contact: EMMA RICHARDS Mobile Relation: Daughter Preferred language: [place] Islander Flanging Machine Operator needed? No Secondary Emergency Contact: LIONEL REYNOSO Mobile Relation: Son Preferred language: [place]er Flanging Machine Operator needed? No Gee Givens MD Division of Hospitalist Medicine Inpatient Medical Services/[facility] PAGER: Michele clancy [1] No [...] q8h traZODone, 50 mg, Oral, Nightly [facility] 08-07-2024 Plan of care note Problem: Knowledge [...] Interventions Goal: Promote nutritional intake Outcome: Progressing [facility] 08-06-2024 Note Formatting of this n [...] Length of Stay (Days): 3 GMLOS: 4 [facility] 08-06-2024 Note Formatting of this n ote might be different from the original. Care Management Progress Note Spoke with pt's daughter Emma over the phone to discuss DC planning. Informed her that pt is still requiring high flow O2 10 Liters and she cannot go back to ECF with that high O2 requirement. Informed daughter that we have [facility] ( [facility] ) looking at pt and will reevaluate her next week to see if she is still appropriate to go there after DC if still needing high flow O2. Emma okay with [facility] following. Will continue to follow. Length of Stay (Days): 3 GMLOS: 4 T [facility] 08-06-2024 Note Care Management Prog ress Note Spoke with pt's daughter Emma over the phone to discuss DC planning. Informed her that pt is still requiring high flow O2 10 Liters and she cannot go back to ECF with that high O2 requirement. Informed daughter that we have [facility] ( [facility] ) looking at pt and will reevaluate her next week to see if she is still appropriate to go there after DC if still needing high flow O2. Emma okay with [facility] following. Will continue to follow. Length of Stay (Days): 3 GMLOS: 4 [facility] 08-06-2024 Note Hospitalist Progress Note 08/06/2024 [phone]: Please page me ([phone]) for patient care issues. [phone]: Please page [facility] night Hospitalist for any issues. Subjective: Admit [...] no fevers or chills Adult diet Regular @[id number]@ 24HR INTAKE/OUTPUT: No intake or output data in the 24 hours ending 08/06/24 0937 Past Medical History: Medical History[1] LABS: CBC: Recent Labs 08/03/242 08/04/24 1135 08/06/24 0233 WBC 11.7* -- 14.1* [...] recommending SNF (she came from facility at [facility] and plan is to go back to [facility] with restorative therapy. However, she is still requiring a lot of O2 (on high flow NC) and pulmonary anticipating fdc weaning and recommending LTACH -check daily labs Extended Emergency Contact Information Primary Emergency Contact: STEPHYEMMA TAYLOR Mobile Relation: Daughter Preferred language: [place] Islander Flanging Machine Operator needed? No Secondary Emergency Contact: EDGARDO,DON Mobile Relation: Son Preferred language: [place]er Flanging Machine Operator needed? No Gee Givens MD Division of Hospitalist Medicine Inpatient Medical Services/[facility] PAGER: Epic chat [1] No [...] , Topical (more content not included)... [facility] 08-05-2024 Nurse Note Patient informed PO steroids were changed back to IV steroids. Patient continues to refuse steroids due to feeling restless and irritable. T [facility] 08-05-2024 Nurse Note RN at bedside to administer PO Prednisone. Patient adamantly refusing to take steroids because they make her restless and irritable. Patient requesting more hydroxyzine because she already feels restless and irritable. RN informed patient of next available time for hydroxyzine to be administered. Dr. Givens notified and RN requested increase in hydroxyzine per patient request. T [facility] 08-05-2024 Note Formatting of this n ote might be different from the original. Care Management Progress Note Called daughter Emma Richards @ [phone] to discuss DC planning. Informed her that therapy is recommending SNF at [place]. Informed her that this TCC that her insurance is OON with therapy services at [facility] and that family would have to private pay. Daughter states she would like her to go back with restorative therapy at ECF. Liaison at [facility] updated on daughter's plan to go back to ECF with restorative therapy. Will continue to follow. Length of Stay (Days): 2 GMLOS: 3.4 T [facility] 08-05-2024 Note Formatting of this n ote might be different from the original. Care Management Progress Note Called thanh Richards @ [phone] to discuss DC planning. Informed her that therapy is recommending SNF at [place]. Informed her that this TCC that her insurance is OON with therapy services at [facility] and that family would have to private pay. Daughter states she would like her to go back with restorative therapy at ECF. Liaison at [facility] updated on daughter's plan to go back to ECF with restorative therapy. Will continue to follow. Length of Stay (Days): 2 GMLOS: 3.4 T [facility] 08-05-2024 Note Care Management Prog ress Note Called thanh Richards @ [phone] to discuss DC planning. Informed her that therapy is recommending SNF at [place]. Informed her that this TCC that her insurance is OON with therapy services at [facility] and that family would have to private pay. Daughter states she would like her to go back with restorative therapy at ECF. Liaison at [facility] updated on daughter's plan to go back to [facility]CF with restorative therapy. Will continue to follow. Length of Stay (Days): 2 GMLOS: 3.4 [facility] 08-05-2024 Consult note Associated Order (s): IP [...] Unable to assess Fluid Accumulation: Mild Extremities 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 Presented to [facility] via EMS from SNF with low pulse [...] On: Kcal/kg Weight Used for Energy Requirements: [place] Weight for Energy Calculation (kg): 45 kg Total Energy Requirements (kcals/day): 7924-2494 (25-30 kcal/kg IBW) Weight Used for Protein Requirements: [place] Weight in Kg Used for Protein Requirements: [...] lb) (11/11/23) % Weight Change (Calculated): 11.7 [place] Body Weight (lbs) (Calculated): 100 lbs [place] Body Weight (Kg) (Calculated): 45 kg % [place] Body Weight (Calculated): 220 % BMI (kg/m2) [...] current diet Zuleyka Saul RDN, LDN, Contact: *[phone] T [facility] 08-05-2024 Consult note Associated Order (s): IP [...] Unable to assess Fluid Accumulation: Mild Extremities 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 Presented to [facility] via EMS from SNF with low pulse [...] On: Kcal/kg Weight Used for Energy Requirements: [place] Weight for Energy Calculation (kg): 45 kg Total Energy Requirements (kcals/day): 1812-8954 (25-30 kcal/kg IBW) Weight Used for Protein Requirements: [place] Weight in Kg Used for Protein Requirements: [...] lb) (11/11/23) % Weight Change (Calculated): 11.7 [place] Body Weight (lbs) (Calculated): 100 lbs [place] Body Weight (Kg) (Calculated): 45 kg % [place] Body Weight (Calculated): 220 % BMI (kg/m2) [...] current diet Zuleyka Saul RDN, LDN, Contact: *[phone] Associated Order(s): INPATIENT CONSULT TO WOUND CARE PROVIDERS Images from the original note were not included. [facility] Wound Care CONSULT Note Krish Peralta AGE: 83 y.o. GENDER: female : 1940 Subjective: HISTORY of PRESENT ILLNESS HPI Krish Peralta is a 83 y.o. female who presents for a wound consult. HPI: Ms. Peralta is a 83 y.o. female with past medical history significant for COPD. Patient presented to the emergency room from longterm facility for shortness of breath. Patient admitted [...] to follow Recommend to follow up at [facility] Outpatient wound care center after hospital [...] from the original note were not included. [facility] Pulmonary Medicine [address] [place] [id number] Patient - Krish Peralta - 1940 Date of Admission - 08/03/2024 4:21 PM Date of Evaluation - 08/04/2024 Room - B2-243/-[facility] Hospital Day - 1 Consulting - [...] - hypertension Patient is new to the [facility] pulmonary service, 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 She was admitted to [facility] 08/03/24 from SNF for increasing shortness of [...] min Stress: No Stress Concern Present (08/04/2024) [employer] [place] [employer] - Occupational Stress Questionnaire Feeling of Stress : Only a little Social Connections: Unknown (08/04/2024) Social Connection and Isolation Panel [NHANES] Frequency of Communication with Friends and Family: Never Frequency of Social Gatherings with Friends and Family: Never Attends Orthodox Services: Never Active Member of Clubs or [...] Neri MD Pulmonary & Critical Care Medicine [facility] [1] Patient Active Problem List Diagnosis COPD [...] Wound Dressing Adhesive documented in this encounter [facility] 08-05-2024 Note Hospitalist Progress Note 08/05/2024 [phone]: Please page me ([phone]) for patient care issues. [phone]: Please page [facility] Hospitalist for any issues. Subjective: Admit Date: 08/03/2024 PCP: No primary care provider on file. Room#: [facility] Interval History: No overnight issues. Patient patient currently sitting up in chair. She says she is breathing okay but admits to being a little short of breath. Currently no chest pain. She is tell me she needs to get back to her facility? She denies any fevers or chills. No abdominal pain. No nausea or vomiting. Adult diet Regular @[id number]@ 24HR INTAKE/OUTPUT: Intake/Output Summary (Last 24 hours) [...] EMMA RICHARDS Mobile Relation: Daughter Preferred language: [place] Islander Flanging Machine Operator needed? No Secondary Emergency Contact: LIONEL REYNOSO Mobile Relation: Son Preferred language: [place]er Flanging Machine Operator needed? No Gee Givens MD Division of Hospitalist Medicine Inpatient Medical Services/[facility] PAGER: Epic chat [1] No [...] day traZODone, 50 mg, Oral, Nightly [facility] 08-05-2024 Plan of care note Problem: Knowledge Deficit Goal: Patient/family/caregiver demonstrates understanding of disease process, treatment plan, medications, and discharge instructions Outcome: Progressing Problem: Potential for Compromised Skin Integrity Goal: Skin Integrity is Maintained or Improved Outcome: Progressing Goal: Nutritional status is improving Outcome: Progressing Problem: Urinary Incontinence Goal: Perineal skin integrity is maintained or improved Outcome: Progressing [place] [id number] Consult note Associated Order (s): INPATIENT CONSULT TO WOUND CARE PROVIDERS Images from the original note were not included. [facility] Wound Care CONSULT Note Kirsh Peralta AGE: 83 y.o. GENDER: female : 1940 Subjective: HISTORY of PRESENT ILLNESS HPI Krish Peralta is a 83 y.o. female who presents for a wound consult. HPI: Ms. Peralta is a 83 y.o. female with past medical history significant for COPD. Patient presented to the emergency room from [facility] for shortness of breath. Patient admitted with [...] and water, apply ET mix then leave WINDOWS SYSTEMS ADMINISTRATOR TID and PRN - Reposition q2hrs - Incontinent checks q2hrs - Waffle cushion while in chair Nutritional support Wound Care to follow Recommend to follow up at [facility] Outpatient wound care center after hospital [...] Malik DO at 08/09/2024 5:[address] [facility] [employer] Work Phone: 08-05-2024 Plan of care note [...] medications, and discharge instructions Outcome: Not Progressing [facility] 08-04-2024 Note Formatting of this n ote might be different from the original. Care Management Progress Note Chart reviewed. Pt admitted to for c/o SOB and COPD exacerbation. Pt on high flow O2. Pulmonary consulted and following. Pt continues on IV antibiotics and IV steroids. Met with pt earlier at bedside and she told this TCC that she is from [facility]. This TCC called daughter Emma Richards @ [phone] and she confirmed that that is where pt is from and plans for her to return [place]. Daughter states pt sees MD at [facility] and does not have her own PCP. Also pt gets meds supplied form [facility]. PT saw and is recommending SNF at [place]. Informed daughter and she said that pt's insurance is OON with [facility] and they would have to private pay for SNF services. This TCC called [facility] liaison and she confirmed this as well. I will reach back out to daughter to discuss her options, pt may have to go back with [facility] PT/OT possibly? Will continue to follow for DC needs. Length of Stay (Days): 1 GMLOS: No GMLOS Documented [facility] 08-04-2024 Note Formatting of this n ote might be different from the original. Care Management Progress Note Chart reviewed. Pt admitted to for c/o SOB and COPD exacerbation. Pt on high flow O2. Pulmonary consulted and following. Pt continues on IV antibiotics and IV steroids. Met with pt earlier at bedside and she told this TCC that she is from [facility]. This TCC called daughter Emma Richards @ [phone] and she confirmed that that is where pt is from and plans for her to return [place]. Daughter states pt sees MD at [facility] and does not have her own PCP. Also pt gets meds supplied form [facility]. PT saw and is recommending SNF at [place]. Informed daughter and she said that pt's insurance is OON with [facility] and they would have to private pay for SNF services. This TCC called [facility] liaison and she confirmed this as well. I will reach back out to daughter to discuss her options, pt may have to go back with [facility] PT/OT possibly? Will continue to follow for DC needs. Length of Stay (Days): 1 GMLOS: No GMLOS Documented [facility] 08-04-2024 Note Care Management Prog ress Note Chart reviewed. Pt admitted to for c/o SOB and COPD exacerbation. Pt on high flow O2. Pulmonary consulted and following. Pt continues on IV antibiotics and IV steroids. Met with pt earlier at bedside and she told this TCC that she is from [facility]. This TCC called daughter Emma Richards @ [phone] and she confirmed that that is where pt is from and plans for her to return at [place]. Daughter states pt sees MD at [facility] and does not have her own PCP. Also pt gets meds supplied form [facility]. PT saw and is recommending SNF [place]. Informed daughter and she said that pt's insurance is OON with [facility] and they would have to private pay for SNF services. This TCC called [facility] liaison and she confirmed this as well. I will reach back out to daughter to discuss her options, pt may have to go back with [facility] PT/OT possibly? Will continue to follow for DC needs. Length of Stay (Days): 1 GMLOS: No GMLOS Documented [facility] 08-04-2024 Nurse Note Images from the original note were not included. Wound Care consulted for Pressure Injury Prevention. Pt's Emile score= 15 on 08/04 Pt's pressure points assessed. Pt sitting in chair upon arrival for visit. Pt's Heels, Back, Elbows, Occiput and ears all intact. Pt stood with max assist from can line operator for posterior assessment. Blanchable erythema/purple tissues noted to bilateral buttocks. DTI noted to right buttock, linear area of nonblanchable purple tissues, measures 1cm x 0.3cm, with surrounding blanchable erythema and purple tissues. See photo below. Wound BASE BRANDER group consulted. Brief in place. Pt incontinent [...] Verbalized understanding. Prevention Measures in place, including: [place] sheet with pillows/wedges, Heels elevated off bed on pillows, Zinc/Moisture Barrier ointment (applied), Waffle chair cushion (ordered for pt). Skin Care precaution order set in place. Dietitian consult order placed d/t wound. PT consult in place. D/W nursing staff. Right buttock Will continue to follow pt. Please secure chat for any questions or concerns. Mago Cavazos RN [facility] 08-04-2024 Note Formatting of this n ote might be different from the original. Referral placed to return back to [facility] via [facility] per TCC request. Await review and response regarding ability to accept. TCC notified. T [facility] 08-04-2024 Note Formatting of this n ote might be different from the original. Referral placed to return back to [facility] via [facility] per TCC request. Await review and response regarding ability to accept. TCC notified. T [facility] 08-04-2024 Note Referral placed to r eturn back to [facility] via [facility] per TCC request. Await review and response regarding ability to accept. TCC notified. [facility] 08-04-2024 Note Hospitalist Progress Note 08/04/2024 [phone]: Please page me ([phone]) for patient care issues. [phone]: Please page [facility] night Hospitalist for any issues. [...] No fevers or chills. Adult diet Regular @[id number]@ 24HR INTAKE/OUTPUT: Intake/Output Summary (Last 24 hours) [...] IRVINEMMA Vigil Mobile Relation: Daughter Preferred language: [place] Islander Flanging Machine Operator needed? No Secondary Emergency Contact: LIONEL REYNOSO Mobile Relation: Son Preferred language: [place]er Flanging Machine Operator needed? No Gee Givens MD Division of Hospitalist Medicine Inpatient Medical Services/[facility] PAGER: Epic chat [1] No past medical history on file. [2] [3] azithromycin, 500 mg, IntraVENous, q24h cefTRIAXone, 1,000 mg, IntraVENous, q24h enoxaparin, 30 mg, SubCUTAneous, 2 times per day ipratropium-albuterol, 1 ampule, Nebulization, q4h [place] sodium chloride 0.9%, 10 mL, IntraVENous, 2 times per day [facility] [facility] 08-04-2024 Consult note Associated Order (s): IP CONSULT TO PULMONOLOGY Images from the original note were not included. [facility] Pulmonary Medicine [address] [place] [id number] Patient - Krish Peralta - 1940 Date [...] - hypertension Patient is new to the [facility] pulmonary service, 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 She was admitted to [facility] 08/03/24 from SNF for increasing shortness of [...] min Stress: No Stress Concern Present (08/04/2024) [employer] [place] [employer] - Occupational Stress Questionnaire Feeling of Stress : Only a little Social Connections: Unknown (08/04/2024) Social Connection and Isolation Panel [NHANES] Frequency of Communication with Friends and Family: Never Frequency of Social Gatherings with Friends and Family: Never Attends Orthodox Services: Never Active Member of Clubs or [...] Neri MD Pulmonary & Critical Care Medicine [facility] [1] Patient Active Problem List Diagnosis COPD [...] Duloxetine Unknown Lorazepam Oxycodone Wound Dressing Adhesive [facility] 08-03-2024 History and physical note Attending History and Physical Admit Date: 08/03/2024 PCP: No primary care provider on file. CHIEF COMPLAINT: Shortness of breath Reason for Admission: COPD exacerbation History Obtained From: ER provider HISTORY OF PRESENT ILLNESS: Krish is a 83 y.o. female with past medical history significant for COPD. Patient presented to the emergency room from longterm facility for shortness of breath. Patient has [...] Insecurity: No Food Insecurity (10/22/2023) Received from [facility] Hunger Vital Sign Worried About Running Out of Food in the Last Year: Never true Ran Out of Food in the Last Year: Never true Transportation Needs: No Transportation Needs (10/22/2023) Received from [facility] PRAPARE - Transportation Lack of Transportation (Medical): No Lack of Transportation (Non-Medical): No Physical Activity: Not on file Stress: Not on file Social Connections: Not on file Intimate Partner Violence: Not on file Housing Stability: Low Risk (10/22/2023) Received from [facility] Housing Stability Vital Sign Unable to Pay [...] Will hold off initiating the antibiotics Consult cement truck driver - am labs, replace lytes prn - [...] EMMA RICHARDS Mobile Relation: Daughter Preferred language: Solomon Islander Flanging Machine Operator needed? No Secondary Emergency Contact: LIONEL REYNOSO Mobile Relation: Son Preferred language: [place] Islander Flanging Machine Operator needed? 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 The patient and/or family/surrogate voluntarily agreed to participate in ACP services. Patient s cognitive capacity: Alert, Orientedx3 Code Status: [x_] [FULL CODE - Continue all advanced life support: CPR,intubation,invasive procedures] [_] [DNR-CCA - DO NOT do CPR, intubation] [_] [DNR-DISPLAY AND BANNER DESIGNER - Comfort care only] [_] DNR form [...] Fransisco Pete MD Division of Hospitalist Medicine [facility] [1] No past medical history on file. [2] No past surgical history on file. [3] No family history on file. [4] Current Facility-Administered Medications: ipratropium-albuterol (Duo-Neb) 0.5-2.5 mg/3 mL nebulizer solution - Pyxis ADS Override Pull, , , , No current outpatient medications on file. [5] Allergies Allergen Reactions Aspartame Codeine Lorazepam Oxycodone Wound Dressing Adhesive [facility] Phone: 08-03-2024 Note Attending History an d Physical Admit Date: 08/03/2024 PCP: No primary care provider on file. CHIEF COMPLAINT: Shortness of breath Reason for Admission: COPD exacerbation History Obtained From: ER provider HISTORY OF PRESENT ILLNESS: Krish is a 83 y.o. female with past medical history significant for COPD. Patient presented to the emergency room from longterm facility for shortness of breath. Patient has [...] Insecurity: No Food Insecurity (10/22/2023) Received from [facility] Hunger Vital Sign Worried About Running Out of Food in the Last Year: Never true Ran Out of Food in the Last Year: Never true Transportation Needs: No Transportation Needs (10/22/2023) Received from [facility] PRAPARE - Transportation Lack of Transportation (Medical): No Lack of Transportation (Non-Medical): No Physical Activity: Not on file Stress: Not on file Social Connections: Not on file Intimate Partner Violence: Not on file Housing Stability: Low Risk (10/22/2023) Received from [facility] Housing Stability Vital Sign Unable to Pay [...] RDW 14. (more content not included)... [facility] 08-03-2024 History and physical note Attending History and Physical Admit Date: 08/03/2024 PCP: No primary care provider on file. CHIEF COMPLAINT: Shortness of breath Reason for Admission: COPD exacerbation History Obtained From: ER provider HISTORY OF PRESENT ILLNESS: Krish is a 83 y.o. female with past medical history significant for COPD. Patient presented to the emergency room from longterm facility for shortness of breath. Patient has [...] Insecurity: No Food Insecurity (10/22/2023) Received from [facility] Hunger Vital Sign Worried About Running Out of Food in the Last Year: Never true Ran Out of Food in the Last Year: Never true Transportation Needs: No Transportation Needs (10/22/2023) Received from [facility] PRAPARE - Transportation Lack of Transportation (Medical): No Lack of Transportation (Non-Medical): No Physical Activity: Not on file Stress: Not on file Social Connections: Not on file Intimate Partner Violence: Not on file Housing Stability: Low Risk (10/22/2023) Received from [facility] Housing Stability Vital Sign Unable to Pay [...] Will hold off initiating the antibiotics Consult cement truck driver - am labs, replace lytes prn - [...] EMMA RICHARDS Mobile Relation: Daughter Preferred language: [place] Islander Flanging Machine Operator needed? No Secondary Emergency Contact: LIONEL REYNOSO Mobile Relation: Son Preferred language: [place] Islander Flanging Machine Operator needed? 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 The patient and/or family/surrogate voluntarily agreed to participate in ACP services. Patient s cognitive capacity: Alert, Orientedx3 Code Status: [x_] [FULL CODE - Continue all advanced life support: CPR,intubation,invasive procedures] [_] [DNR-CCA - DO NOT do CPR, intubation] [_] [DNR-DISPLAY AND BANNER DESIGNER - Comfort care only] [_] DNR form [...] Fransisco Pete MD Division of Hospitalist Medicine [facility] [1] No past medical history on file. [2] No past surgical history on file. [3] No family history on file. [4] Current Facility-Administered Medications: ipratropium-albuterol (Duo-Neb) 0.5-2.5 mg/3 mL nebulizer solution - Pyxis ADS Override Pull, , , , No current outpatient medications on file. [5] Allergies Allergen Reactions Aspartame Codeine Lorazepam Oxycodone Wound Dressing Adhesive documented in this encounter [facility] 08-03-2024 Emergency department Note Patient was placed on a Venti mask at 50% FiO2. [facility] 08-03-2024 Emergency department Note Patient was placed [...] Insecurity: No Food Insecurity (10/22/2023) Received from [facility] Hunger Vital Sign Worried About Running Out of Food in the Last Year: Never true Ran Out of Food in the Last Year: Never true Transportation Needs: No Transportation Needs (10/22/2023) Received from [facility] PRAPARE - Transportation Lack of Transportation (Medical): No Lack of Transportation (Non-Medical): No Housing Stability: Low Risk (10/22/2023) Received from [facility] Housing Stability Vital Sign Unable to Pay [...] the EMS BiPap. documented in this encounter [facility] 08-03-2024 Emergency department Note Upon arrival the [...] be left alone. ED Attending is aware. [facility] 08-03-2024 Note Upon arrival the pat ient [...] left alone. ED Attending is aware. [facility] 08-03-2024 Emergency department Triage note Patient arrives from [facility] via EMS due to SOB and low pulse oximetry readings. Ems reports the capnography was in the 50's for CO2 level. The SNF was trying all day to get the patient to agree to come to the ED for evaluation and she refused. Patient finally agrees but refused the EMS BiPap. [facility] 08-03-2024 Physician Emergency department Note EMERGENCY DEPARTMENT [...] Insecurity: No Food Insecurity (10/22/2023) Received from [facility] Hunger Vital Sign Worried About Running Out of Food in the Last Year: Never true Ran Out of Food in the Last Year: Never true Transportation Needs: No Transportation Needs (10/22/2023) Received from [facility] PRAPARE - Transportation Lack of Transportation (Medical): No Lack of Transportation (Non-Medical): No Housing Stability: Low Risk (10/22/2023) Received from [facility] Housing Stability Vital Sign Unable to Pay for Housing in the Last Year: No Number of Places Lived in the Last Year: 1 Unstable Housing in the Last Year: No Stacia Juarez DO 08/03/24 2147 [facility] 04-19-2024 Note [facility] Medical Records Department [address] [place] [id number] Discharge Summary 04/19/24 1556 MR#: [id number] Acct: [id number] Name: KRISH PERALTA Rep #: [id number] : 1940 83 From: Trip Hamilton DO PCP: Dr. Kaleb Mace Sr., DO Status:DIS IN Location: [place] [id number] Providers Date of Admission: 04/17/24 Date of Discharge: 04/19/24 Primary Care Physician: Dr. Kaleb Mace Sr., Reason For Visit: COPD EXACERBATION W/ HYPOXIA [...] Center after being transferred from a senior living for worsening shortness of breath with cough. [facility] Note HNO ID: [id number] Author: KALLI DE ANDA APRN.UPHOLSTERY MECHANIC Service: ? Author Type: Nurse Practitioner Type: Progress Notes Filed: 11/11/2023 11:29 Note Text: Connected Care Unit Discharge Summary [facility] Connected Care Program [address], [address] ([address]) [place] [address] - CONNECTED CARE DISCHARGE SUMMARY Service Date: 11/11/2023 Admission Date: 10/24/2023 Discharge Date: 11/11/2023 Facility: [facility] Level of Care: Skilled SNF Attending: [...] a recliner She will be discharged to [facility]. She is safe to transfer to [...] Final GFR- 96 mL/min/1.73 m2 >60 Final XIW-DHB-HYVFBNL 80 mL/min/1.73 m2 >60 Final Stage of [...] magnesium (NEXI (more content not included)... [facility] 11-11-2023 History of Present illness Narrative Images from the original note were not included. Connected Care Unit Discharge Summary SNF Connected Care Program [facility] [address], [address] ([address]) [place] [address] CONNECTED CARE DISCHARGE SUMMARY Service Date: 11/11/2023 Admission Date: 10/24/2023 Discharge Date: 11/11/2023 Facility: [facility] Level of Care: Skilled SNF Attending: Dr. Ricardo Barrera Connected Care Primary Care Physician: EMILY MCCARTY MD Principal Diagnosis: Acute pain of right shoulder (primary encounter diagnosis) Personal history of fall Non-traumatic rhabdomyolysis Hypertension, unspecified type Chronic obstructive pulmonary disease, unspecified copd type (formerly [facility]) Debility Subacute Course: Clear presented facility after being admitted to the hospital for a fall at home. CT scans were completed that were negative. She did have complaints of dysuria, and was treated for UTI. She continues to remain on room air, she does sleep upright in a recliner She will be discharged to [facility]. She is safe to transfer to [...] Final GFR- 96 mL/min/1.73 m2 >60 Final JTG-CSV-QLZLWIK 80 mL/min/1.73 m2 >60 Final Stage of [...] Take 20 mg by mouth once daily. Zuciv-7-LRY-EPA-Fish Oil (FISH OIL) 1,000 mg (120 mg-180 [...] of breath. Functional Status: Modified independent + [facility] Scheduled Future Appointments: No future appointments. Prior to discharge, staff to schedule follow up appointment for patient to see PCP within 7-10 days of discharge. I spent 36 minutes in the visit, with more than 50% of the total qvxk-rx-boiw time of the visit in counseling / coordination of care. Kalli De Anda APRN.CASSIE documented in this encounter [facility] 11-05-2023 Note HNO ID: [id number] Author: KALLI DE ANDA APRN.CASSIE Service: ? Author Type: Nurse Practitioner Type: Progress Notes Filed: 11/05/2023 14:28 Note Text: Connected Care Unit Progress Note Patient Name: Krish Peralta Patient Facility: [facility] Admit Date 10/24/2023 Level of Care: [...] not collected. Patient is being discharged to [facility] in stable condition and agrees with plan. [...] labs, family (more content not included)... [facility] 11-05-2023 History of Present illness Narrative Connected Care Unit Progress Note Patient Name: Krish Peralta Patient Facility: [facility] Admit Date 10/24/2023 Level of Care: [...] not collected. Patient is being discharged to [facility] in stable condition and agrees with plan. [...] Final GFR- 96 mL/min/1.73 m2 >60 Final LYA-UYR-RWSYBJV 80 mL/min/1.73 m2 >60 Final Stage of [...] 11/05/2023 This note was partially generated using [employer] voice recognition system, and there may be some incorrect words, spellings, and punctuation that were not noted in checking the note before saving. Electronically signed by Kalli De Anda APRN.UPHOLSTERY MECHANIC documented in this encounter [facility] 11-03-2023 Note HNO ID: [id number] Author: KALLI DE ANDA APRN.CASSIE Service: ? Author Type: Nurse Practitioner Type: Progress Notes Filed: 11/03/2023 16:21 Note Text: Connected Care Unit Progress Note Patient Name: Krish Peralta Patient Facility: [facility] Admit Date 10/24/2023 Level of Care: [...] dysuria UA CANDS completed culture is pending Cabela's today pneumoniae [...] not collected. Patient is being discharged to [facility] in stable condition and agrees with plan. [...] medications, most (more content not included)... [facility] 11-03-2023 History of Present illness Narrative Connected Care Unit Progress Note Patient Name: Krish Peralta Patient Facility: [facility] Admit Date 10/24/2023 Level of Care: [...] Urine culture w/ mixed microbiota. Continue Shanti Kalli De Anda HPI: (Per hospital discharge) HOSPITAL [...] not collected. Patient is being discharged to [facility] in stable condition and agrees with plan. [...] Final GFR- 96 mL/min/1.73 m2 >60 Final FOQ-TJX-BMLMKUP 80 mL/min/1.73 m2 >60 Final Stage of [...] 11/03/2023 This note was partially generated using [employer] voice recognition system, and there may be some incorrect words, spellings, and punctuation that were not noted in checking the note before saving. Electronically signed by Kalli De Anda APRN.UPHOLSTERY MECHANIC documented in this encounter [facility] 10-29-2023 Note HNO ID: [id number] Author: KALLI DE ANDA APRN.CASSIE Service: ? Author Type: Nurse Practitioner Type: Progress Notes Filed: 10/29/2023 15:41 Note Text: Connected Care Unit Progress Note Patient Name: Krish Peralta Patient Facility: [facility] Admit Date 10/24/2023 Level of Care: [...] not collected. Patient is being discharged to [facility] in stable condition and agrees with plan. [...] record. Angel (more content not included)... [facility] 10-29-2023 History of Present illness Narrative Connected Care Unit Progress Note Patient Name: Krish Peralta Patient Facility: [facility] Admit Date 10/24/2023 Level of Care: [...] not collected. Patient is being discharged to [facility] in stable condition and agrees with plan. [...] Final GFR- 83 mL/min/1.73 m2 >60 Final QMT-APL-VKVEETK 68 mL/min/1.73 m2 >60 Final Stage of [...] 10/29/2023 This note was partially generated using [employer] voice recognition system, and there may be some incorrect words, spellings, and punctuation that were not noted in checking the note before saving. Electronically signed by Kalli De Anda APRN.CASSIE documented in this encounter [facility] 10-27-2023 Note HNO ID: [id number] Author: KALLI DE ANDA APRN.CASSIE Service: ? Author Type: Nurse Practitioner Type: Progress Notes Filed: 10/27/2023 12:37 Note Text: Connected Care Unit Progress Note Patient Name: Krish Peralta Patient Facility: [facility] Admit Date 10/24/2023 Level of Care: [...] not collected. Patient is being discharged to [facility] in stable condition and agrees with plan. [...] OBJECTIVE: Labs/diagnostics: (more content not included)... [facility] 10-27-2023 History of Present illness Narrative Images from the original note were not included. Connected Care Unit Progress Note Patient Name: Krish Peralta Patient Facility: [facility] Admit Date 10/24/2023 Level of Care: [...] not collected. Patient is being discharged to [facility] in stable condition and agrees with plan. [...] which included preparing to see the patient, bhje-tc-kxqq patient care, completing clinical documentation, obtaining and/or reviewing separately obtained history, performing a medically appropriate examination, counseling and educating the patient/family/caregiver, ordering medications, tests, or procedures, communicating with other HCPs (not separately reported), independently interpreting results (not separately reported), communicating results to the patient/family/caregiver, and care coordination (not separately reported). This note was partially generated using [employer] voice recognition system, and there may be some incorrect words, spellings, and punctuation that were not noted in checking the note before saving. Electronically signed by Kalli De Anda APRN.UPHOLSTERY MECHANIC documented in this encounter [facility] 10-24-2023 Note [facility] 10-23-2023 Note [facility] 10-23-2023 Note [facility] 10-22-2023 Note [facility] 10-16-2023 Note HNO ID: [id number] Author: KALLI DE ANDA APRN.UPHOLSTERY MECHANIC Service: ? Author Type: Nurse Practitioner Type: Progress Notes Filed: 10/17/2023 09:25 Note Text: Connected Care Unit Discharge Summary SNF Connected Care Program [facility] [address], [address] ([address]) [place] [address] - CONNECTED CARE DISCHARGE SUMMARY Service Date: 10/16/2023 Admission Date: 09/22/2023 Discharge Date: 10/16/2023 Facility: [facility] Level of Care: Skilled SNF Attending: Sandra [...] ready to go home. With assistance of [facility], and friends she is safe to go [...] Take 1 capsule by mouth once daily. Iogrm-2-BVN-EPA-Fish Oil (FISH OIL) 1,000 mg (120 mg-180 [...] for wheezing/shortness of breath. Functional Status: Ambulatory [facility] Scheduled Future Appointments: No future appointments. Prior to discharge, staff to schedule follow up appointment for patient to see PCP within 7-10 days of discharge. I spent 35 minutes in the visit, with more than 50% of the total nehz-pu-kaqu time of the visit in counseling / coordination of care. Kalli De Anda APRN.[facility] 10-16-2023 History of Present illness Narrative Connected Care Unit Discharge Summary SNF Connected Care Program [facility] [address], [address] ([address]) [place] [address] CONNECTED CARE DISCHARGE SUMMARY Service Date: 10/16/2023 Admission Date: 09/22/2023 Discharge Date: 10/16/2023 Facility: [facility] Level of Care: Skilled SNF Attending: Sandra Kelly M.D. [facility] Primary Care Physician: EMILY MCCARTY MD Principal [...] ready to go home. With assistance of [facility], and friends she is safe to go [...] Take 1 capsule by mouth once daily. Qwtwn-7-IHS-EPA-Fish Oil (FISH OIL) 1,000 mg (120 mg-180 [...] for wheezing/shortness of breath. Functional Status: Ambulatory [facility] Scheduled Future Appointments: No future appointments. Prior to discharge, staff to schedule follow up appointment for patient to see PCP within 7-10 days of discharge. I spent 35 minutes in the visit, with more than 50% of the total nphe-bn-pxoy time of the visit in counseling / coordination of care. Kalli De Anda APRN.CASSIE documented in this encounter [facility] 10-14-2023 Note HNO ID: [id number] Author: KALLI DE ANDA APRN.CNP Service: ? Author Type: Nurse Practitioner Type: Progress Notes Filed: 10/14/2023 17:24 Note Text: Connected Care Unit Progress Note Patient Name: Krish Peralta Patient Facility: [facility] Admit Date 09/22/2023 Level of Care: Skilled [...] labs (E03.8) Other specified hypothyroidism TSH low Zrhzkmlxhnucy338 mcg ordered (A49.2) Haemophilus influenzae infection Levofloxacin [...] and agree Plan: Diet, Supplements DISCHARGE DISPOSITION: Residential Facility update Sitting up in her chair, she is alert and oriented x 3. She reports that she wants to go home this week. She denies any shortness of breath, chest discomfort or pain. She continues to work with therapy, she feels that she is ready to go home. She asked to be referred back to her or nurse manager, for her chronic abdominal pain. She continues [...] Final Vit (more content not included)... [facility] 10-14-2023 History of Present illness Narrative Connected Care Unit Progress Note Patient Name: Krish Peralta Patient Facility: [facility] Admit Date 09/22/2023 Level of Care: Skilled [...] labs (E03.8) Other specified hypothyroidism TSH low Dzruoueigkhxb032 mcg ordered (A49.2) Haemophilus influenzae infection Levofloxacin [...] and agree Plan: Diet, Supplements DISCHARGE DISPOSITION: Residential Facility update \ Sitting up in her chair, she is alert and oriented x 3. She reports that she wants to go home this week. She denies any shortness of breath, chest discomfort or pain. She continues to work with therapy, she feels that she is ready to go home. She asked to be referred back to her or nurse manager, for her chronic abdominal pain. She continues [...] today,10/14/2023 This note was partially generated using [employer] voice recognition system, and there may be some incorrect words, spellings, and punctuation that were not noted in checking the note before saving Electronically signed by Kalli De Anda APRN.UPHOLSTERY MECHANIC documented in this encounter [facility] 10-09-2023 Note HNO ID: [id number] Author: KALLI DE ANDA APRN.CASSIE Service: ? Author Type: Nurse Practitioner Type: Progress Notes Filed: 10/09/2023 15:06 Note Text: Connected Care Unit Progress Note Patient Name: Krish Peralta Patient Facility: [facility] Admit Date 09/22/2023 Level of Care: Skilled [...] labs (E03.8) Other specified hypothyroidism TSH low Yccrsvtoumybl186 mcg ordered (A49.2) Haemophilus influenzae infection Levofloxacin [...] and agree Plan: Diet, Supplements DISCHARGE DISPOSITION: Residential Facility 10/09/2023 update Krish sitting up in [...] 1.74 Normal (more content not included)... [facility] 10-09-2023 History of Present illness Narrative Connected Care Unit Progress Note Patient Name: Krish Peralta Patient Facility: [facility] Admit Date 09/22/2023 Level of Care: Skilled [...] labs (E03.8) Other specified hypothyroidism TSH low Drtgsogljbmsn216 mcg ordered (A49.2) Haemophilus influenzae infection Levofloxacin [...] and agree Plan: Diet, Supplements DISCHARGE DISPOSITION: Residential Facility 10/09/2023 chetna Diaz sitting up in [...] today,10/09/2023 This note was partially generated using [employer] voice recognition system, and there may be some incorrect words, spellings, and punctuation that were not noted in checking the note before saving Electronically signed by Kalli De Anda APRN.UPHOLSTERY MECHANIC documented in this encounter [facility] 10-07-2023 Note HNO ID: [id number] Author: KALLI DE ANDA APRN.CASSIE Service: ? Author Type: Nurse Practitioner Type: Progress Notes Filed: 10/07/2023 18:46 Note Text: Connected Care Unit Progress Note Patient Name: Krish Peralta Patient Facility: [facility] Admit Date 09/22/2023 Level of Care: Skilled [...] labs (E03.8) Other specified hypothyroidism TSH low Dezfndksaijnf208 mcg ordered (A49.2) Haemophilus influenzae infection Levofloxacin [...] and agree Plan: Diet, Supplements DISCHARGE DISPOSITION: Residential Facility 10/07/2023 update Krish sitting up in [...] of mot (more content not included)... [facility] 10-07-2023 History of Present illness Narrative Images from the original note were not included. Connected Care Unit Progress Note Patient Name: Krish Peralta Patient Facility: [facility] Admit Date 09/22/2023 Level of Care: Skilled [...] labs (E03.8) Other specified hypothyroidism TSH low Vjvinvkfllftj470 mcg ordered (A49.2) Haemophilus influenzae infection Levofloxacin [...] and agree Plan: Diet, Supplements DISCHARGE DISPOSITION: Residential Facility 10/07/2023 chetna Diaz sitting up in [...] 10/07/2023 This note was partially generated using [employer] voice recognition system, and there may be some incorrect words, spellings, and punctuation that were not noted in checking the note before saving Electronically signed by Kalli De Anda APRN.UPHOLSTERY MECHANIC documented in this encounter [facility] 10-02-2023 Note HNO ID: [id number] Author: KALLI DE ANDA APRN.CASSIE Service: ? Author Type: Nurse Practitioner Type: Progress Notes Filed: 10/02/2023 17:31 Note Text: Connected Care Unit Progress Note Patient Name: Krish Peralta Patient Facility: [facility] Admit Date 09/22/2023 Level of Care: Skilled [...] labs (E03.8) Other specified hypothyroidism TSH low Kvggkldysolie312 mcg ordered (A49.2) Haemophilus influenzae infection Levofloxacin [...] and agree Plan: Diet, Supplements DISCHARGE DISPOSITION: Residential Facility 10/02/2023 Krish sitting up in her [...] warm a (more content not included)... [facility] 10-02-2023 History of Present illness Narrative Images from the original note were not included. Connected Care Unit Progress Note Patient Name: Krish Peralta Patient Facility: [facility] Admit Date 09/22/2023 Level of Care: Skilled [...] labs (E03.8) Other specified hypothyroidism TSH low Ihvcqbexkbmkq736 mcg ordered (A49.2) Haemophilus influenzae infection Levofloxacin [...] and agree Plan: Diet, Supplements DISCHARGE DISPOSITION: Residential Facility 10/02/2023 Krish sitting up in her [...] 10/02/2023 This note was partially generated using [employer] voice recognition system, and there may be some incorrect words, spellings, and punctuation that were not noted in checking the note before saving Electronically signed by Kalli De Anda APRN.UPHOLSTERY MECHANIC documented in this encounter [facility] 09-30-2023 Note HNO ID: [id number] Author: KALLI DE ANDA APRN.CNP Service: ? Author Type: Nurse Practitioner Type: Progress Notes Filed: 09/30/2023 15:34 Note Text: Connected Care Unit Progress Note Patient Name: Krish Peralta Patient Facility: [facility] Admit Date 09/22/2023 Level of Care: Skilled [...] labs (E03.8) Other specified hypothyroidism TSH low Etqhscscnybrs074 mcg ordered (A49.2) Haemophilus influenzae infection Levofloxacin [...] and agree Plan: Diet, Supplements DISCHARGE DISPOSITION: Residential Facility 09/30/2023 update Krish is sitting up [...] Pupils are (more content not included)... [facility] 09-30-2023 History of Present illness Narrative Images from the original note were not included. Connected Care Unit Progress Note Patient Name: Krish Peralta Patient Facility: [facility] Admit Date 09/22/2023 Level of Care: Skilled [...] labs (E03.8) Other specified hypothyroidism TSH low Rnvwtmqvtpmjb107 mcg ordered (A49.2) Haemophilus influenzae infection Levofloxacin [...] and agree Plan: Diet, Supplements DISCHARGE DISPOSITION: Residential Facility 09/30/2023 update Krish is sitting up [...] 09/30/2023 This note was partially generated using [employer] voice recognition system, and there may be some incorrect words, spellings, and punctuation that were not noted in checking the note before saving Electronically signed by Kalli De Anda APRN.UPHOLSTERY MECHANIC documented in this encounter [facility] 09-26-2023 Note HNO ID: [id number] Author: KALLI DE ANDA APRN.CASSIE Service: ? Author Type: Nurse Practitioner Type: Progress Notes Filed: 09/26/2023 23:15 Note Text: Connected Care Unit Progress Note Patient Name: Krish Peralta Patient Facility: [facility] Admit Date 09/22/2023 Level of Care: Skilled [...] and agree Plan: Diet, Supplements DISCHARGE DISPOSITION: Residential Facility 09/26/2023 chetna Diaz sitting up in [...] Mental S (more content not included)... [facility] 09-26-2023 History of Present illness Narrative Images from the original note were not included. Connected Care Unit Progress Note Patient Name: Krish Peralta Patient Facility: [facility] Admit Date 09/22/2023 Level of Care: Skilled [...] and agree Plan: Diet, Supplements DISCHARGE DISPOSITION: Residential Facility 09/26/2023 update Krish sitting up in [...] 09/26/2023 This note was partially generated using [employer] voice recognition system, and there may be some incorrect words, spellings, and punctuation that were not noted in checking the note before saving Electronically signed by Kalli De Anda APRN.UPHOLSTERY MECHANIC documented in this encounter [facility] 09-23-2023 Note HNO ID: [id number] Author: KALLI DE ANDA APRN.CASSIE Service: ? Author Type: Nurse Practitioner Type: Progress Notes Filed: 09/23/2023 15:28 Note Text: Connected Care Unit Progress Note Patient Name: Krish Peralta Patient Facility: [facility] Admit Date 09/22/2023 Level of Care: Skilled [...] and agree Plan: Diet, Supplements DISCHARGE DISPOSITION: Residential Facility 09/23/2023 update Krish is sitting up in wheelchair she is alert and oriented x 3. She denies any shortness of breath, chest discomfort or pain. She does have complaints of generalized pain, she does take tramadol at home. Did speak with [facility] to get dosage. This was reordered. [...] Cervical back: (more content not included)... [facility] 09-23-2023 History of Present illness Narrative Images from the original note were not included. Connected Care Unit Progress Note Patient Name: Krish Peralta Patient Facility: [facility] Admit Date 09/22/2023 Level of Care: Skilled [...] and agree Plan: Diet, Supplements DISCHARGE DISPOSITION: Residential Facility 09/23/2023 chetna Diaz is sitting up in wheelchair she is alert and oriented x 3. She denies any shortness of breath, chest discomfort or pain. She does have complaints of generalized pain, she does take tramadol at home. Did speak with [facility] to get dosage. This was reordered. [...] which included preparing to see the patient, lfil-ft-wnrb patient care, completing clinical documentation, obtaining and/or reviewing separately obtained history, performing a medically appropriate examination, counseling and educating the patient/family/caregiver, ordering medications, tests, or procedures, communicating with other HCPs (not separately reported), independently interpreting results (not separately reported), communicating results to the patient/family/caregiver, and care coordination (not separately reported). This note was partially generated using [employer] voice recognition system, and there may be some incorrect words, spellings, and punctuation that were not noted in checking the note before saving. This note was partially generated using [employer] voice recognition system, and there may be some incorrect words, spellings, and punctuation that were not noted in checking the note before saving. Electronically signed by Kalli De Anda APRN.CASSIE documented in this encounter [facility] 09-23-2023 Note HNO ID: [id number] Author: KAREN NOLEN, RN Service: Nursing Author Type: Registered Nurse Type: Nursing Progress Note Filed: 09/23/2023 01:31 Note Text: [facility]. All questions answered. [facility] 09-23-2023 Note HNO ID: [id number] Author: KAREN NOLEN RN Service: Nursing Author Type: Registered Nurse Type: Nursing Progress Note Filed: 09/23/2023 01:21 Note Text: Assisted patient to ambulette w/c. PIV removed. All belonging sent with patient. [facility] 09-22-2023 Note HNO ID: [id number] Author: HILDA HALE RN Service: Nursing Author Type: Registered Nurse Type: Nursing Progress Note Filed: 09/22/2023 19:01 Note Text: Report called to Angie at [facility] 09-21-2023 Note [facility]23 [facility]19[facility]23 [facility] 09-18[facility]2023 [facility] 09-17-2023 [facility] 09-16-2023 [facility] 09-15-2023 [facility] 09-14-2023 [facility] 09-13-2023 Note [facility] 06-20-[facility]23 Discharge summary Date of Service 06/20/23 Discharge Diagnosis 1. Acute hypoxic respiratory failure 2. Acute on chronic HFpEF exacerbation 3. Suspected JOCELIN 4. Bradycardia 5. Hypothyroidism 6. COPD without exacerbation 7. Other history of HTN, chronic back pain, recurrent UTIs, depression, morbid obesity, GERD Additional Orders: Other status: BMP,06/20/23 5:00:00 EDT, Next AM Draw (one day only), Blood, Once, Preferred Lab: [facility], Stop date 06/20/23 5:00:00 EDT(Complete) Other status: CBC,06/20/23 5:00:00 EDT, Next AM Draw (one day only), Blood, Once, Preferred Lab: [facility], Stop date 06/20/23 5:00:00 EDT(Complete) Ordered: Discharge,06/20/23 13:17:00 EDT, Discharged to: Residential Facility Ordered: Konsyl,Dose = 1 pkt, Oral, [...] obesity and medical noncompliance. Patient presented to [facility] on 06/18/2023 with worsening shortness of [...] The patient is stable for discharge to [facility] today. Updated daughter Emma over phone. Case d/w [...] Why: Follow-up for sleep study Where: [address] [facility] [address] [place] [address]- [phone] Business (1) Follow Up with [facility] CALL When Within 1-2 days Where: [address] [place] [address] [address] [facility] [place] [address]- Business (1) Follow Up with Patient is discharged to [facility]. Please call report to [phone]. When Within 1-2 days Follow Up with EMILY MCCARTY [facility] When Within 1-2 days Why: Please call the office to schedule a follow-up appointment. Where: [address] [facility] [address] [facility] [place] [address]- Business (1) Follow Up Appointments Transfer of [...] by BAYLEE STONE on 06/20/2023 01:[address] [facility] 06-20-2023 Note Discharge Instructions Thank you for allowing [facility] to assist you with your healthcare needs. The following is important discharge information regarding your hospital visit. Your Care Team EMILY MCCARTY MD Your Diagnosis Bradycardia COPD exacerbation Hypoxia Shortness of breath What to do next Scheduled Follow-Up Appointments Appointment Type When With Where Contact InformationEcho - Echocardiogram Adult 07/14/2023 10:00 AM EDT [facility] 07/30/2023 10:40 AM EDT MARNI SAMSON [facility] Medicare 09/01/2023 02:15 PM EDT EMILY MCCARTY MD [facility] Follow Up Appointments Follow Up with LINDA TEE When Within 1-2 days Why: Follow-up for sleep study Where: [address] [place] [address]- [phone] Business (1) Follow Up with [facility] When Within 1-2 days Where: [address] [facility] [place] [address]- Business (1) Follow Up with Patient is discharged to [facility] skilled LOC. Please call report to [phone]. When Within 1-2 days Follow Up with EMILY MCCARTY [facility] When Within 1-2 days Why: Please call the office to schedule a follow-up appointment. Where: [address] [facility] [place] [address]- Business (1) The Following Activity and Diet [...] to receive it can visit one of [facility] vaccine clinics. There are many vaccine clinic locations within the [facility]. For locations and available times, please visit [email or web address] It is important to note that some COVID mobile vaccine clinics are held outdoors and may be canceled in rainy or stormy conditions. To learn more about pediatric vaccinations (ages 5-11), we invite you to visit the [employer] webpage. [email or web address].html To learn more about the COVID-19 vaccine, we invite you to visit the CDC website for a list of frequently asked questions.https://www.cdc.gov/luz navirus/2019-ncov/vaccines/faq.htm l [employer] Patient Portal Access Instructions: Stay connected with your healthcare team and access your personal medical information anytime with the [employer] Patient Portal. Please follow the directions below to create your [employer] account: 1.Access the email account you provided upon registration to the hospital/physician office.2.Look for an invitation email from [facility].3.Open the email and access the invitation link: Accept Invitation to [employer].4.Fill in the required carpenter to create your account. To access your account, visit [email or web address]. Click the blue button labeled Access Patient [...] you will allow to register on the [facility] for access to your information. You can also access the [facility] on the [facility] vidhya. Simply click on Patient Portal and then log into your account. If you would like to receive a full copy of your medical records, please contact the [facility] Medical Records Department by calling [phone], Friday through Friday between 8 a.m. and [...] Call your local pharmacy or go to [email or web address] to find one close to you.3.Make use of household items: Use cat litter or old coffee grounds to dispose medications if other options are not available. Mix your drugs with these household products, seal them in an airtight container and throw it into the garbage. Call [facility]: [phone] to be sure your drugs can be [...] aware that I should contact my doctor. 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 06-20-2023 Discharge summary Date of Service 06/20/23 Discharge Diagnosis 1. Acute hypoxic respiratory failure 2. Acute on chronic HFpEF exacerbation 3. Suspected JOCELIN 4. Bradycardia 5. Hypothyroidism 6. COPD without exacerbation 7. Other history of HTN, chronic back pain, recurrent UTIs, depression, morbid obesity, GERD Additional Orders: Other status: BMP,06/20/23 5:00:00 EDT, Next AM Draw (one day only), Blood, Once, Preferred Lab: [facility], Stop date 06/20/23 5:00:00 EDT(Complete) Other status: CBC,06/20/23 5:00:00 EDT, Next AM Draw (one day only), Blood, Once, Preferred Lab: [facility], Stop date 06/20/23 5:00:00 EDT(Complete) Ordered: Discharge,06/20/23 13:17:00 EDT, Discharged to: Residential Facility Ordered: Konsyl,Dose = 1 pkt, Oral, [...] obesity and medical noncompliance. Patient presented to [facility] on 06/18/2023 with worsening shortness of [...] The patient is stable for discharge to [facility]. Updated daughter Emma over phone. Case d/w Dr. Owate. Allergies Ambien Aspartame (non-codified) Ativan Nembutal Percocet [...] Why: Follow-up for sleep study Where: [address] [facility] [address] [place] [address]- [phone] Business (1) Follow Up with [facility] When Within 1-2 days Where: [address] [place] [address] [address] [facility] [place] [address]- Business (1) Follow Up with Patient is discharged to [facility] LOC. Please call report to [phone]. When Within 1-2 days Follow Up with EMILY MCCARTY [facility] When Within 1-2 days Why: Please call the office to schedule a follow-up appointment. Where: [address] [facility] [address] [facility] [place] [address]- Business (1) Follow Up Appointments Transfer of [...] Time Spent 32 minutes Digitally Signed by BALYEE STONE on 06/20/2023 01:[address] [facility] 06-20-2023 Note Exam Date Time Procedure Performing Provider Status 06/20/23 12:37 PM Echocardiogram, Adult - CV Auth (Verified) [facility] 04-12-2024 Note Date of Service 06/20/23 Chief Complaint knee pain, generalized weakness Subjective 82-year-old female with past medical history of hypertension, hypothyroidism, GERD, COPD, chronic back pain, chronic diastolic heart failure, recurrent UTIs, osteoporosis, depression, morbid obesity and medical noncompliance. Patient presented to [facility] on 06/18/2023 with worsening shortness of [...] tablet 25 mg 1 tab(s), Oral, BID wwzeb-3-yqko ethyl esters 1000 mg capsule 1,000 mg [...] SNF. Patient now agreeable, referral sent to [facility]. Lovenox for DVT prophylaxis Anticipate discharge when SNF bed available/Echo completed Ok to transfer to Plan discussed with patient. Updated daughter Emma over phone Case d/w Dr. Gonzalez Digitally Signed by BAYLEE STONE on 06/20/2023 12:[address] [id number] Note Date of Service 06/19/23 Chief Complaint respiratory failure, HF exacerbation Subjective 82-year-old female with past medical history of hypertension, hypothyroidism, GERD, COPD, chronic back pain, chronic diastolic heart failure, recurrent UTIs, osteoporosis, depression, morbid obesity and medical noncompliance. Patient presented to [facility] on 06/18/2023 with worsening shortness of [...] tablet 25 mg 1 tab(s), Oral, BID nkjjw-4-jglb ethyl esters 1000 mg capsule 1,000 mg [...] BAYLEE STONE APRN-CASSIE on 06/19/2023 01:[address] [id number] Cardiology Consult note Date of Service 06/19/2023 [...] cardiology standpoint. Hold off beta-chelita (labetolol). 30-day panel monitor on discharge. Thank you for the [...] LAURA HENRIQUEZ MD on 06/19/2023 02:[address] [id number] Note Date of Service 06/19/23 Chief Complaint respiratory failure, HF exacerbation Subjective 82-year-old female with past medical history of hypertension, hypothyroidism, GERD, COPD, chronic back pain, chronic diastolic heart failure, recurrent UTIs, osteoporosis, depression, morbid obesity and medical noncompliance. Patient presented to [facility] on 06/18/2023 with worsening shortness of [...] tablet 25 mg 1 tab(s), Oral, BID nwqtj-8-ghoc ethyl esters 1000 mg capsule 1,000 mg [...] Plan discussed with patient. left for daughter Emma over phone Case d/w Dr. Gonzalez Digitally Signed by BAYLEE STONE on 06/19/2023 01:[address] [id number] Note Date of Service 06/19/23 Chief Complaint respiratory failure, HF exacerbation Subjective 82-year-old female with past medical history of hypertension, hypothyroidism, GERD, COPD, chronic back pain, chronic diastolic heart failure, recurrent UTIs, osteoporosis, depression, morbid obesity and medical noncompliance. Patient presented to [facility] on 06/18/2023 with worsening shortness of [...] tablet 25 mg 1 tab(s), Oral, BID gmmku-8-ujbb ethyl esters 1000 mg capsule 1,000 mg [...] Plan discussed with patient. left for daughter Emma over phone Case d/w Dr. Gonzalez Digitally Signed by BAYLEE STONE APRN-CASSIE on 06/19/2023 01:[address] [id number] Cardiology Consult note Date of Service 06/19/2023 [...] cardiology standpoint. Hold off beta-chelita (labetolol). 30-day panel monitor on discharge. Thank you for the [...] Streptococcal pneumonia Procedure/Surgical History Echocardiogram: 07/04/22 Echocardiogram: 07/05/22 Esophagogastroduodenoscopy and dilation of esophageal stricture: 01/21/18 [...] LAURA HENRIQUEZ MD on 06/19/2023 02:[address] [id number] Respiratory therapy Hospital Progress note Respiratory Therapy Evaluation Entered On: 06/19/2023 8:21 EDT Performed On: 06/19/2023 8:19 EDT by Bill, Sterling L JUVENILE DETENTION OFFICER Respiratory Therapy Evaluation Pulmonary Status : Pulmonary [...] BID Tx use at home Sterling Khan JUVENILE DETENTION OFFICER - 06/19/2023 8:19 EDT Digitally Signed by Sterling Khan JUVENILE DETENTION OFFICER on 06/19/2023 08:[address] [facility] [id number] History and physical note Date of Service [...] obesity, osteoporosis, chronic depression. She presented to [facility] on 06/18/2023 with complaints of weakness, shortness of breath andconcerns of low heart rate as low as 48 at home. To be noted, patient has been in communication with her primary care doctor and loft worker since 06/09/2023 with complaints of shortness of [...] communication with her primary care doctor and loft worker since 06/09/2023 with complaints of shortness of [...] by KENDALL NOLAN on 06/18/2023 01:[address] [id number] Evaluation + Plan noteExtracted from: Title:History and Physical Author:ASPEN NOLAN Date:06/18/23 1. Shortness of breath 2. Hypoxia -Patient has been in communication with her primary care doctor and loft worker since 06/09/2023 with complaints of shortness of [...] 18, 2023 19:44:17 EDT Collaborative Care Team [facility] Medicine This is a shared/split visit Patient was seen and examined during hospitalization Labs imaging and documentation were reviewed Care discussed during a.m. rounds treatment plan was developed independently and implemented with NEUROLOGY PROFESSOR assistance Agree with assessment and plan 82-year-old [...] Appointments Appointment Date:07/14/2023 10:00:00 AM Scheduled Provider: Location:[facility] Appointment Type:Echo - Echocardiogram Adult Appointment Date:07/30/2023 10:40:00 AM Scheduled Provider:MARNI SAMSON NEUROLOGY PROFESSOR-UPHOLSTERY MECHANIC Location:UROLOGY Appointment Type:URO OV Appointment Date:09/01/2023 02:15:00 PM Scheduled Provider:EMILY MCCARTY MD Location:[facility] Appointment Type: Wellness Medicare [facility] 04-10-2024 History and [...] obesity, osteoporosis, chronic depression. She presented to [facility] on 06/18/2023 with complaints of weakness, shortness of breath andconcerns of low heart rate as low as 48 at home. To be noted, patient has been in communication with her primary care doctor and loft worker since 06/09/2023 with complaints of shortness of [...] communication with her primary care doctor and loft worker since 06/09/2023 with complaints of shortness of [...] by KENDALL NOLAN on 06/18/2023 01:[address] [id number] NoteSINUS OR ECTOPIC ATRIAL RHYTHM NONSPECIFIC IVCD WITH LAD LEFT VENTRICULAR HYPERTROPHY ANTERIOR Q WAVES, POSSIBLY DUE TO LVH Electronic Signature: MD SCOTT BLANCHARD MD 06/18/2023 09:35:12[facility] 04-10-2024 Note ORIGINAL EXAMINATION: ONE XRAY [...] Date: 06/18/2023 8:22:34 AM Ordering Provider: JACK[facility]04-10-2024 Hospital Discharge instructions Follow Up Care 06/18/2023 06:14:47 With:LINDA TEE Address: [address] [place] [address] [address] [place] [address] [phone] Business (1) When:1-2 days Comments:Follow-up for sleep study With:AUDRA CALL Address: [address] [place] [address] [address] [facility] [place] [address]- Business (1) When:1-2 days With:Patient is discharged to [facility]. Please call report to [phone]. Address:Unknown When:1-2 days With:EMILY MCCARTY, [facility] Address: [address] [place] [address] [address] [facility] [place] [address]- Business (1) When:1-2 days Comments:Please call the office to schedule a follow-up appointment. [facility] 12-10-2022 Note Discharge Instructions Thank you for allowing [facility] to assist you with your healthcare needs. [...] Appointment Type When With Where Contact InformationNS BASE BRANDER 02/20/2022 11:00 AM EST AH Neurosurgery [address] [facility] [address] [place] [address] OV Follow Up 04/25/2022 01:00 PM EST EMILY MCCARTY MD [facility] [place] [facility] Follow Up Appointments Follow Up with EMILY MCCARTY MD, [facility] When Within 5 to 7 days Why: Please call the office to schedule a follow up appointment Where: [address] [facility] [address] [facility] [place] [address]- Follow Up with [facility], When Within 1-2 days Why: A referral [...] 12 hours Duration: 6 Days Pickup at [facility] #[id number] New oseltamivir (Tamiflu 75 mg oral capsule) 1 cap by mouth Two (2) times a day Duration: 1 Days Pickup at [facility] #[id number] Changed predniSONE (prednisone 20mg tab (TAPER)) Taper 60-40-20 mg x 3 days each dose by mouth Every day Duration: 9 Days Pickup at [facility] #[id number] Unchanged acetaminophen (Tylenol Extra Strength 500 mg [...] Four (4) times a day Pickup at [facility] #70195 Unchanged aspirin (aspirin 325 mg oral delayed [...] Rash Unchanged DME (Prescription MISCellaneous) See instructions [facility]--aplly once daily to wound. Unchanged [...] as needed for for constipation Pharmacy Information [facility] #[id number]: [address] [place], [place] [id number] [phone] What How Much When Comments Stop Taking [...] or as directed by your healthcare provider [phone] [employer]. [address] [place] [address]. All rights reserved. This information is not intended as a substitute for professional medical care. Always follow yourhealthcare professional's instructions. Additional Information VACCINATE! IT SAVES LIVES! Members of the community who have not yet received the COVID-19 vaccine and would like to receive it can visit one of [facility] vaccine clinics. There are many vaccine clinic locations within the [facility]. For locations and available times, please visit [email or web address] It is important to note that some COVID mobile vaccine clinics are held outdoors and may be canceled in rainy or stormy conditions. To learn more about pediatric vaccinations (ages 5-11), we invite you to visit the [facility] webpage. https://www.[facility].org/pages/9672-Qzqzf-Aiufdgeuect-Ywbedjlhue-Udzym-Iak stions.htmlTo learn more about the COVID-19 vaccine, we invite you to visit the [facility] website for a list of frequently asked questions. [email or web address]/[email or web address]-[email or web address] _Asked-Questions.pdf [facility] Patient Portal Access Instructions: Stay connected with your healthcare team and access your personal medical information anytime with the [facility] Patient Portal.If you would like a full copy of your medical records, please contact the [facility] Medical Records Department, Friday through Friday between 8a.m. and 4:30p.m. Please follow the directions below to access the portal: 1.Access the email account you provided upon registration to the hospital.2.Look for an invitation email from [facility].3.Open the email and access the invitation link: Accept Invitation to [facility]4.Fill in the required carpenter to create your account. Sign into www.Blog Talk Radio with your username and password that you [...] you will allow to register on the [employer] Patient Portal for access to your information. You can also access the [employer] Patient Portal on the ensembli vidhya. Simply click on Health Records under [employer] and then click on the [employer] logo. HOW TO SAFELY DISPOSE OF PRESCRIPTION [...] Call your local pharmacy or go to http://Tutum/5K6Cm7h to find one close to you.3.Make use of household items: Use cat litter or old coffee grounds to dispose medications if other options arenot available. Mix your drugs with these household products, seal them in an airtight container andthrow it into the garbage. Call [facility]: [phone] to be sure your drugs can be [...] aware that I should contact my doctor. Patient/Bag Machine Adjuster Signature: Date/Time: Relationship to Patient: Witness Name/Signature: Date/Time: [facility]jxbxeuk23-13-1101 Discharge summary Date of Service February 16, [...] Follow Up with EMILY MCCARTY MD, [facility] When Within 5 to 7 days Why: Please call the office to schedule a follow up appointment Where: [address] [facility] [place] [address]- Follow Up with [facility], When Within [...] NIKOLAY ARANDA MD on 02/16/2022 06:[address] [facility] [id number] Respiratory therapy Hospital Progress note Respiratory Therapy [...] Felicitas Lau LPN on 02/16/2022 09:[address] [facility] [id number] Note Chief Complaint Transition plan Transitional Action [...] drive. She does have a referral to [facility] for an aide, noted to [...] Rate19(FEB 16 08:45)19(FEB 15 12:20)20(FEB 15 10:47) VQR709(FEB 16 08:45)113(FEB 15 15:04)138(FEB 15 21:40) DBP70(FEB [...] 30 gram(s), 3 Refill(s). DME: See Instructions, [facility]--aplly once daily to wound., 1 [...] 02/12/22 23:16:00 EST, Full Code, Constant Order Samantha Johnston LPN, am scribing for Vera Hager NP, in the presence of Vera Hager. I Vera Hager NP, personally performed the services described in this documentation, as described by Wero Johnston LPN in my presence and it is both accurate and complete. This document is transcribed using voice recognition software may contain typographical errors. Digitally Signed by VERA HAGER on 02/16/2022 06:[address] [facility] [id number] Note Date of Service February 15, 2022 [...] cap(s), Oral, qDay fluticasone nasal 0.05 mg/inh [place] 50 mcg 1 spray(s), Nostril, each, BID [...] NIKOLAY ARANDA MD on 02/15/2022 05:[address] [facility] [id number] Note Date of Service February 14, 2022 [...] cap(s), Oral, qDay fluticasone nasal 0.05 mg/inh [place] 50 mcg 1 spray(s), Nostril, each, BID [...] NIKOLAY ARANDA MD on 02/14/2022 07:[address] [facility] [id number] Note Date of Service February 13, 2022 [...] cap(s), Oral, qDay fluticasone nasal 0.05 mg/inh [place] 50 mcg 1 spray(s), Nostril, each, BID [...] NIKOLAY ARANDA MD on 02/13/2022 07:[address] [facility] [id number] History and physical note Date of Service [...] allergic rhinitis, GERD, urinary incontinence presented to [facility] on February 12, 2022 with a chief [...] potassium replacement and Tamiflu 75 mg at [facility] prior to my evaluation. Patient was [...] Sapp LPN (01/23/22 15:34:00) Lab Performing Location: [facility] (01/23/22 15:34:00) Perf Loc - POCT: Tested [...] Ketones Urine Dipstick: Negative (01/23/22 15:34:00) Specific [place] Urine Dipstick: 1.010 (01/23/22 15:34:00) Blood Urine [...] rhythm...normal P axis, V-rate 50- 99 Short ID interval...ID <110mS Nonspecific IVCD with LAD...QRSd >120mS & [...] Point of contact influenza A positive at [facility] Patient was wheezing on my evaluation [...] every 8 hours Note was written using Framebridge research laboratory specialist software. Some of the meaning of the words and sentences might have changed during research laboratory specialist, if there was ever some confusion about [...] LORIN RODRIGUEZ MD on 02/12/2022 11:[address] [facility] [id number] Note Chief Complaint Transition Plan. Transitional Action [...] 30 gram(s), 3 Refill(s). DME: See Instructions, [facility]--aplly once daily to wound., 1 EA, 1 [...] 02/12/22 23:16:00 EST, Full Code, Constant Order Samantah Feliz RN, am scribing for Vera Hager NP, in the presence of Vera Hager NP, personally performed the services described in this documentation, as described by Burke MCKINLEY in my presence and it is both accurate and complete. This document transcribed using voice recognition software may contain typographical errors. Digitally Signed by VERA HAGER on 02/13/2022 12:[address] [facility] [id number] History and physical note Date of Service [...] allergic rhinitis, GERD, urinary incontinence presented to [facility] on February 12, 2022 with a [...] potassium replacement and Tamiflu 75 mg at [facility] prior to my evaluation. Patient was [...] Sapp LPN (01/23/22 15:34:00) Lab Performing Location: [facility] (01/23/22 15:34:00) Perf Loc - POCT: Tested [...] 88.5 fL (02/12/22:34:00) MCH (POC): 30 pg (02/12/22:34:00) MCHC (POC): 33.9 G/dL (02/12/22:34:00) RDW (POC): 14.9 % (02/12/22:34:00) Platelet (POC): 72 10^3/mcL Low (02/12/22:34:00) MPV (POC): 9.3 fL (02/12/22 11:34:00) Neutrophil % (POC): 53.7 % (02/12/22 11:34:00) Lymphocyte % (POC): 33.6 % (02/12/22:34:00) Monocyte % (POC): 8.9 % (02/12/22:34:00) Eosinophil % (POC): 3.4 % (02/12/22:34:00) Basophil % (POC): 0.2 % (02/12/22:34:00) Immature Granulocyte (POC): 0.2 % (02/12/22 11:34:00) Neutrophil, Absolute (POC): 2.24 10^3/mcL Low (02/12/22:34:00) Lymphocyte, Absolute (POC): 1.4 10^3/mcL (02/12/22:34:00) Monocyte, Absolute (POC): 0.37 10^3/mcL (02/12/22:34:00) Eosinophil, Absolute (POC): 0.14 10^3/mcL (02/12/22:34:00) Basophil, Absolute (POC): 0.01 10^3/mcL (02/12/22 11:34:00) Imm Granulocyte, Absolute (POC): 0.01 10^3/mcL (02/12/22 11:34:00) D-dimer (POC): 243 ng/mL D-DU (02/12/22 14:45:00) Urine Color Urine Dipstick: Dark Yellow (01/23/22 15:34:00) Urine Appearance Urine Dipstick: Cloudy (Abnormal) (01/23/22 15:34:00) Glucose Urine Dipstick: Negative (01/23/22 15:34:00) Bilirubin Urine Dipstick: Negative (01/23/22 15:34:00) Ketones Urine Dipstick: Negative (01/23/22:34:00) Specific [place] Urine Dipstick: 1.010 (01/23/22 15:34:00) Blood Urine [...] rhythm...normal P axis, V-rate 50- 99 Short ID interval...ID <110mS Nonspecific IVCD with LAD...QRSd >120mS & [...] Point of contact influenza A positive at [facility] Patient was wheezing on my evaluation [...] every 8 hours Note was written using Framebridge research laboratory specialist software. Some of the meaning of the words and sentences might have changed during research laboratory specialist, if there was ever some confusion about [...] Carpal tunnel release: 1989 Tonsils and adenoids: 194 Arthroplasty of shoulder Arthroscopy of knee History [...] LORIN RODRIGUEZ MD on 02/12/2022 11:[address] [facility] [id number] SARS-CoV-2 (COVID-19) RdRp gene LYDIA+probe Ql (Resp) Negative (02/12/22 3:38 PM)AM [facility] [id number] Hospital Discharge instructions Patient Education 02/12/2022 13:37:15 [...] or as directed by your healthcare provider [phone] [employer]. [address] [place] [address]. All rights reserved. This information is not intended as a substitute for professional medical care. Always follow yourhealthcare professional's instructions. Follow Up Care 02/12/2022 11:08:19 With:EMILY MCCARTY MD, [facility] Address: [address] [place] [address] [address] [facility] [place] [address]- When:5 to 7 days Comments:Please call the office to schedule a follow up appointment With:Say Nolasco, Address:Unknown When:1-2 days Comments:A referral was made for aide services for you. Call them with any questions With:Go to emergency room if symptoms worsen Address:Unknown When:2-[address] [facility] 12-06-2022 Evaluation + Plan noteExtracted from: Title:History and Physical Author:LORIN RODRIGUEZ MD Date:02/12/22 Acute respiratory failure wi th hypoxia: Oxygen saturation of 88% room air Continue oxygen via nasal cannula Likely due to influenza A infection triggering bronchoconstriction Influenza A infection: Patient presented with hypoxia, shortness of breath Point of contact influenza A positive at [facility] Patient was wheezing on my evaluation [...] every 8 hours Note was written using Framebridge research laboratory specialist software. Some of the meaning of the words and sentences might have changed during research laboratory specialist, if there was ever some confusion about the meaning of some sentences, please do not hesitate to contact me. Addendum by LORIN RODRIGUEZ MD on February 13, 2022 05:24:23 EST Hypomagnesemia: Magnesium of 1.4 on admission Replacing Hypophosphatemia: Phosphorus of 1.7 on admission Replacing Future Appointments Appointment Date:02/20/2022 11:00:00 AM Scheduled Provider: Location:[facility] Appointment Type:NS BASE BRANDER Appointment Date:04/25/2022 01:00:00 PM Scheduled Provider:EMILY MCCARTY MD Location:[facility] Appointment Type:PC OV Follow Up Future Scheduled Tests Laboratory* Urine Culture 01/23/22 * Complete Metabolic Panel 01/22/22 Radiology* CT Coronary Calcium Score w/o Contrast 11/15/21 [facility] 12-06-2022 Emergency department Discharge summary Discharge Instructions Thank you for allowing [facility] to assist you with your healthcare needs. [...] Follow Up with EMILY MCCARTY MD, [facility] When Within 2-4 days Where: [address] [facility] [address] [place] [address]- Allergies Ambien Aspartame (non-codified) Ativan Nembutal Percocet [...] Rash Unchanged DME (Prescription MISCellaneous) See instructions [facility]--aplly once daily to wound. Unchanged doxycycline (doxycycline [...] or as directed by your healthcare provider [phone] [employer]. [address] [place] [address], [place] [address]. All rights reserved. This information is not intended as a substitute for professional medical care. Always follow yourhealthcare professional's instructions. Additional Information VACCINATE! IT SAVES LIVES! Members of the community who have not yet received the COVID-19 vaccine and would like to receive it can visit one of [facility] vaccine clinics. There are many vaccine clinic locations within the [facility]. For locations and available times, please visit [email or web address]. It is important to note that some COVID mobile vaccine clinics are held outdoors and may be canceled in rainy orstormy conditions. To learn more about pediatric vaccinations (ages 5-11), we invite you to visit the [facility] webpage. https://www.[employer] [facility]ysiss.org/pages/2186-Rdqch-Xkhiitlnyrf-Xojijwpcgt-Mjpki-Qxf stions.htmlTo learn more about the COVID-19 vaccine, we invite you to visit the [facility] website for a list of frequently asked questions. [email or web address]://[email or web address] Talk [email or web address]/assets/Eavgqvrf-[email or web address]-Pidnvszq/[email or web address]-Iphvwbg-Zkwxcsbaie _Asked-Questions.pdf [facility] Patient Portal Access Instructions: Stay connected with your healthcare team and access your personal medical information anytime with the [facility] Patient Portal. If you would like a full copy of your medical records please contact the [facility] Medical Records Department Friday through Friday between 8a.m. and 4:30p.m. Please follow the directions below to access the portal: 1.Access the email account you provided upon registration to the hospital.2.Look for an invitation email from [facility].3.Open the email and access the invitation link: Accept Invitation to [facility]4.Fill in the required carpenter to create your account. Sign into www.Blog Talk Radio with your username and password that you [...] you will allow to register on the [employer] Patient Portal for access to your information. You can also access the [employer] Patient Portal on the ensembli vidhya. Simply click on Health Records under [employer] and then click on the [employer] logo. HOW TO SAFELY DISPOSE OF PRESCRIPTION [...] Call your local pharmacy or go to http://Colatris.[employer]ant[employer]/0G7Mo8j to find one close to you.3.Make use of household items: Use cat litter or old coffee grounds to dispose medications if other options arenot available. Mix your drugs with these household products, seal them in an airtight container andthrow it into the garbage. Call [facility]: [phone] to be sure your drugs can be [...] aware that I should contact my doctor. Patient/Bag Machine Adjuster Signature: Date/Time: Relationship to Patient: Witness Name/Signature: Date/Time: [facility] [id number] Note ORIGINAL HISTORY: Short of breath, cough [...] 02/12/2022 11:58:31 AM Ordering Provider: MARLEE WEIR [facility] [id number] Note ORIGINAL HISTORY: Short of breath, cough [...] Sign Date: 02/12/2022 11:58:31 AM Ordering Provider[facility] Future Appointments Appointment Date:02/08/2021 01:30:00 PM Scheduled Provider:EMILY MCCARTY MD Location:[facility] Appointment Type:PC OV Follow Up Future Scheduled Tests Laboratory* Basic Metabolic Panel 07/07/20 * Complete Metabolic Panel 01/22/22 [facility] Evaluation + Plan note Future Appointments Appointment Date:04/25/2022 01:00:00 PM Scheduled Provider:[facility] Type:PC OV Follow Up Future Scheduled Tests Laboratory* Urine Culture 01/23/22 * Complete Metabolic Panel 01/22/22 Radiology* XR Spine Lumbar AP/LAT/FLEX/EXT 04/08/22 * CT Coronary Calcium Score w/o Contrast 11/15/21 [facility] Evaluaupbm note* Diagnosis Urinary tract infection with hematuria, site unspecified- Primary Hypertension, unspecified type Other specified hypothyroidism Acute hypoxic respiratory failure (HCC) Debility Debility, unspecified OAB (overactive bladder) Hypertonicity of bladder [facility]* Diagnosis Urinary tract infection with hematuria, site unspecified- Primary Hypertension, unspecified type Other specified hypothyroidism Acute hypoxic respiratory failure (HCC) Debility Debility, unspecified [facility]* Diagnosis Urinary tract infection with hematuria, site unspecified- Primary Haemophilus influenzae infection Hemophilus influenzae (H. influenzae) infection in conditions classified elsewhere and of unspecified site Hypertension, unspecified type Other specified hypothyroidism Acute hypoxic respiratory failure (HCC) Debility Debility, unspecified documented in this encounter [facility] note* Diagnosis Urinary tract infection with hematuria, site unspecified- Primary Haemophilus influenzae infection Hemophilus influenzae (H. influenzae) infection in conditions classified elsewhere and of unspecified site Hypertension, unspecified type Other specified hypothyroidism Acute hypoxic respiratory failure (HCC) Debility Debility, unspecified OAB (overactive bladder) Hypertonicity of bladder documented in this encounter [facility] note* Diagnosis Urinary tract infection with hematuria, site unspecified- Primary Haemophilus influenzae infection Hemophilus influenzae (H. influenzae) infection in conditions classified elsewhere and of unspecified site Hypertension, unspecified type Other specified hypothyroidism Acute hypoxic respiratory failure (HCC) Debility Debility, unspecified documented in this encounter [facility] note* Diagnosis Urinary tract infection with hematuria, site unspecified- Primary Haemophilus influenzae infection Hemophilus influenzae (H. influenzae) infection in conditions classified elsewhere and of unspecified site Hypertension, unspecified type Other specified hypothyroidism Acute hypoxic respiratory failure (HCC) Hypokalemia Hypopotassemia Debility Debility, unspecified documented in this encounter [facility] note* Diagnosis Non-traumatic rhabdomyolysis- Primary Acute pain of right shoulder Personal history of fall Hypertension, unspecified type Chronic obstructive pulmonary disease, unspecified COPD type (HCC) Debility Debility, unspecified Abnormal finding on urinalysis Other nonspecific finding on examination of urine Other specified hypothyroidism documented in this encounter [facility] note* Diagnosis Acute pain of right shoulder- Primary Personal history of fall Non-traumatic rhabdomyolysis Hypertension, unspecified type Chronic obstructive pulmonary disease, unspecified COPD type (HCC) Debility Debility, unspecified Dysuria documented in this encounter [facility] note* Diagnosis Acute pain of right shoulder- Primary Personal history of fall Non-traumatic rhabdomyolysis Hypertension, unspecified type Chronic obstructive pulmonary disease, unspecified COPD type (HCC) Debility Debility, unspecified documented in this encounter [facility] note* Diagnosis Acute pain of right shoulder- Primary Personal history of fall Non-traumatic rhabdomyolysis Hypertension, unspecified type Chronic obstructive pulmonary disease, unspecified COPD type (HCC) Debility Debility, unspecified documented in this encounter [facility] note* Diagnosis COPD exacerbation (HCC)- Primary Obstructive chronic bronchitis with exacerbation COPD exacerbation (HCC) Obstructive chronic bronchitis with exacerbation Acute on chronic congestive heart failure, unspecified heart failure type (HCC) Acute hypoxic respiratory failure (HCC) documented in this encounter [facility] note* Diagnosis Hospital discharge follow-up- Primary Other follow-up examination Acute on chronic respiratory failure with hypoxemia (HCC) COPD exacerbation (HCC) Obstructive chronic bronchitis with exacerbation Community acquired pneumonia of right lower lobe of lung JOCELIN (obstructive sleep apnea) Obstructive sleep apnea (adult) (pediatric) Sm[facility] Narrative No data available for this section [facility] Hospital Discharge instructions No data available for this section [facility] [facility] Progress note No data available for this section [facility] Summary Purpose Family History No Family History Records FoundNo Family History Records FoundNo Family History Records Found No data available for this section No Family History Records FoundNo Family History Records FoundNo Family History Records FoundNo Family History Records FoundNo Family History Records Found Advance Directives No Advanced Directives Records FoundDocuments on File Type Date Recorded Patient Bag Machine Adjuster Expl anation Advance Directive(s) 09/23/2023 4:28 PM [...] Documents on File Type Date Recorded Patient Bag Machine Adjuster Expl anation DNR (Do Not Resuscitate) 08/11/2024 12:53 PM [place] DNR Form Advance Directives and Livin g Will 08/03/2024 7:07 PM Power of Line Maintenance Technician 08/03/2024 7:05 PM DNR (Do Not Resuscitate) 08/03/2024 7:03 PM Date Activated Date Inactivated Comments 08/04/2024 5:51 AM 08/11/2024 7:35 PM Question Answer Comments ICU transfer: No Date Activated Date Inactivated Comments 08/03/2024 10:39 PM 08/04/2024 5:51 AM Documents on File Type Date Recorded Patient Bag Machine Adjuster Expl anation DNR (Do Not Resuscitate) 08/12/2024 10:00 AM Advance Directives and Livin g Will 08/12/2024 9:26 AM Power of Line Maintenance Technician 08/12/2024 9:25 AM DNR (Do Not Resuscitate) 08/11/2024 12:53 PM [place] DNR Form Advance Directives and Livin g Will 08/03/2024 7:07 PM Power of Line Maintenance Technician 08/03/2024 7:05 PM DNR (Do Not Resuscitate) 08/03/2024 7:03 PM Additional Source Comments INFORMATION SOURCE (unrecogn ized section and content) DATE CREATED AUTHOR 02/16/2018 [facility] DATE CREATED AUTHOR AUTHOR'S ORGANIZ ATION 04/24/2021 [facility] [place] DATE CREATED AUTHOR AUTHOR'S ORGANIZ ATION 01/17/2022 [facility] DATE CREATED AUTHOR AUTHOR'S ORGANIZ ATION 09/11/2023 [facility] ([place]) DATE CREATED AUTHOR AUTHOR'S ORGANIZ ATION 11/12/2023 [facility] DATE CREATED AUTHOR AUTHOR'S ORGANIZ ATION 11/30/2023 [facility] DATE CREATED AUTHOR AUTHOR'S ORGANIZ ATION 08/28/2024 [facility] DATE CREATED AUTHOR AUTHOR'S ORGANIZ ATION 09/02/2024 [facility] Care Team (unrecognized sect ion and content) Care Team Personnel Name: EMILY MCCARTY MD Position: P4 Physician - Primary Care Member Role: Primary Care Physician Address: Address: [address] [place] [address] [address] [place], [place] [address] Name: Kendall Harris RN Position: ED RN Member Role: ED RN Care Team Related Persons Name: EMMA RICHARDS Name: LAURA REYNOSO Address: Home Care Team Personnel Name: EMILY MCCARTY MD Position: P4 Physician - Primary Care Member Role: Primary Care Physician Address: Address: [address] [place] [address] [address] [place], [place] [address] Care Team Related Persons Name: EMMA RICHARDS Name: LAURA REYNOSO Address: Home Patient Care team informatio n (unrecognized section and content) 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 [place] [address] [place] [address] [address] [place] [address] PCP - General Internal Medicine 12/31/22 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 Start Date End Date Emily Mccarty MD [address] [place] [address] PCP - General Internal Medicine 12/31/22 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 Start Date End Date Emily Mccarty MD [address] [place] [address] PCP - General Internal Medicine 12/31/22 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 Start Date End Date Emily Mccarty MD [address] [place] [address] PCP - General Internal Medicine 12/31/22 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 Start Date End Date Emily Mccarty MD [address] [place] [address] PCP - General Internal Medicine 12/31/22 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 Start Date End Date Emily Mccarty MD [address] [place] [address] PCP - General Internal Medicine 12/31/22 Source Comments (unrecognize d section and content) In the event this informatio n is protected by the Federal Confidentiality of Alcohol and Drug Abuse Patient Records regulations: The Federal rules restrict any use of the information to criminally investigate or prosecute any alcohol or drug abuse patient.[facility] the event this information is protected by the Federal Confidentiality of Alcohol and Drug Abuse Patient Records regulations: The Federal rules restrict any use of the information to criminally investigate or prosecute any alcohol or drug abuse patient.[facility] the event this information is protected by the Federal Confidentiality of Alcohol and Drug Abuse Patient Records regulations: The Federal rules restrict any use of the information to criminally investigate or prosecute any alcohol or drug abuse patient.[facility] the event this information is protected by the Federal Confidentiality of Alcohol and Drug Abuse Patient Records regulations: The Federal rules restrict any use of the information to criminally investigate or prosecute any alcohol or drug abuse patient.[facility] the event this information is protected by the Federal Confidentiality of Alcohol and Drug Abuse Patient Records regulations: The Federal rules restrict any use of the information to criminally investigate or prosecute any alcohol or drug abuse patient.[facility] the event this information is protected by the Federal Confidentiality of Alcohol and Drug Abuse Patient Records regulations: The Federal rules restrict any use of the information to criminally investigate or prosecute any alcohol or drug abuse patient.[facility] the event this information is protected by the Federal Confidentiality of Alcohol and Drug Abuse Patient Records regulations: The Federal rules restrict any use of the information to criminally investigate or prosecute any alcohol or drug abuse patient.[facility] the event this information is protected by the Federal Confidentiality of Alcohol and Drug Abuse Patient Records regulations: The Federal rules restrict any use of the information to criminally investigate or prosecute any alcohol or drug abuse patient.[facility] the event this information is protected by the Federal Confidentiality of Alcohol and Drug Abuse Patient Records regulations: The Federal rules restrict any use of the information to criminally investigate or prosecute any alcohol or drug abuse patient.[facility] the event this information is protected by the Federal Confidentiality of Alcohol and Drug Abuse Patient Records regulations: The Federal rules restrict any use of the information to criminally investigate or prosecute any alcohol or drug abuse patient.[facility] the event this information is protected by the Federal Confidentiality of Alcohol and Drug Abuse Patient Records regulations: The Federal rules restrict any use of the information to criminally investigate or prosecute any alcohol or drug abuse patient.[facility] the event this information is protected by the Federal Confidentiality of Alcohol and Drug Abuse Patient Records regulations: The Federal rules restrict any use of the information to criminally investigate or prosecute any alcohol or drug abuse patient.[facility] the event this information is protected by the Federal Confidentiality of Alcohol and Drug Abuse Patient Records regulations: The Federal rules restrict any use of the information to criminally investigate or prosecute any alcohol or drug abuse patient.[facility] Reason for Visit (unrecogniz ed section and content) Reason Comments Shortness of Breath Specialty Diagnoses / Procedures Referred By Contac t Referred To Contact Diagnoses COPD exacerbation (HCC) Acute on chronic congestive heart failure, unspecified heart failure type (HCC) Procedures .. Fransisco Pete MD [address] [place] [address] Phone: tel: fax: [facility] [address] [place] [address] Phone: tel: Referral ID Status Reason Start Date Expiration Date Visits Re quested Visits Authorized [id number] 1 Reason Comments Hospital Follow-up COPD [...] Indication (Select all that apply): Pneumonia (CAP) 213 (Given - Provider: Sophy Olmos RN) 0424 (Given - Provider: Sophy Olmos RN)1208 (Given - Provider: Iona Sheppard, RN)203 (Given - Provider: Karma Flores, RN) 06 (Given - Provider: Karma Flores RN - Comment: pt coughing wanting to wait) enoxaparin (Lovenox) syringe 30 mg 30 mg, SubCUTAneous, Every 12 hours scheduled (2 times per day), First dose on Fri08/03/24 at 2240, Indication of Use: Prophylaxis-DVT/PE 0811 (Given - Provider: Adrian Palma RN)213 (Given - Provider: Sophy Olmos RN) 0926 (Given - Provider: Iona Sheppard, ELÍAS)2038 (Given - Provider: Karma Flores, ELÍAS) 0901 (Given - Provider: Tereso Matta, ELÍAS) escitalopram (Lexapro) tablet 10 mg 10 mg, Oral, Nightly, First dose on Fri08/04/24 at 2100 2136 (Given - Provider: Sophy Olmos RN) 2038 (Given - Provider: Karma Flores, ELÍAS) furosemide (Lasix) injection 20 mg (COMPLETED) 20 mg, IntraVENous, Once, On Fri08/09/24 at 1600, For 1 dose 1606 (Given - Provider: Adrian Palma RN) furosemide (Lasix) tablet 20 mg 20 mg, Oral, 2 times daily, First dose on Fri08/04/24 at 1500 0538 (Given - Provider: Sophy Olmos RN)1606 (Given - Provider: Adrian Palma RN) 0607 (Given - Provider: Sophy Olmos RN)1512 (Given - Provider: Iona Sheppard, ELÍAS) 0602 (Given - Provider: Karma Flores, ELÍAS)1349 (Given - Provider: Tereso Matta, ELÍAS) ipratropium-albuterol (Duo-Neb) 0.5-2.5 mg/3 mL nebulizer solution 3 mL 3 mL (1 ampule), Nebulization, Every 4 hours while awake, First dose on Fri08/04/24 at 0800 0841 (Given - Provider: Khari Riojas RCP)1141 (Given - Provider: Khari Riojas RCP)1634 (Given - Provider: Khari Riojas RCP)2009 (Given - Provider: Wagner Mejia, JUVENILE DETENTION OFFICER) 0824 (Given - Provider: Iwona Singh RCP)1250 (Given - Provider: CARY ColeP)1622 (Given - Provider: Froilan Pascual, JUVENILE DETENTION OFFICER)202 (Given - Provider: Sakina Caldwell, JUVENILE DETENTION OFFICER) 0722 (Not Given - Provider: Sharda Harden [...] Sheppard, ELÍAS) 1227 (Given - Provider: Tereso Matta RN) levothyroxine (Synthroid, Levoxyl) tablet 137 mcg 137 mcg, Oral, Every 24 hours, First dose on Fri08/04/24 at 1200, Tube feeding (TF) interaction, obtain physician order to manage, recommend holding TF for 30 minutes before and after dose. 0538 (Given - Provider: Sophy Olmos RN) 0607 (Given - Provider: Sophy Olmos RN) 0602 (Given - Provider: Karma Flores RN) methylPREDNISolone sod suc (PF) (SOLU-Medrol) 40 [...] Palma RN) 0926 (Given - Provider: Iona Sheppard RN) 09 (Given - Provider: Tereso Matta, ELÍAS) pantoprazole (ProtoNix) EC tablet 40 mg 40 mg, Oral, Daily before breakfast, First dose on Fri08/05/24 at 0600, Do not crush, chew, or split. 0538 (Given - Provider: Sophy Olmos RN) 06 (Given - Provider: Sophy Olmos, ELÍAS) 601 (Given - Provider: Karma Flores RN) potassium chloride CR (Klor-Con M10) ER tablet 20 mEq 20 mEq, Oral, Every 12 hours, First dose on Fri08/04/24 at 2100, Best given with food and a glass of water to minimize gastric irritation. Do not crush or chew. 811 (Given - Provider: Adrian Palma RN)2135 (Given - Provider: Sophy Olmos RN) 925 (Given - Provider: Iona Sheppard, ELÍAS)2038 (Given - Provider: Karma Flores RN) 900 (Given - Provider: Tereso Matta RN) predniSONE (Deltasone) tablet 10 mg(Linked Group 1) 10 mg, Oral, Daily, First dose on Fri08/12/24 at 0900, For 2 doses predniSONE (Deltasone) tablet 20 mg(Linked Group 1) 20 mg, Oral, Daily, First dose on Fri08/10/24 at 0900, For 2 doses 09 (Not Given - Provider: Iona Sheppard RN - Reason: Patient/family refused) 900 (Not Given - Provider: Tereso Matta RN [...] Olmos RN) 925 (Given - Provider: Iona Sheppard RN)2040 (Given - Provider: Karma Flores, ELÍAS) 901 (Given - Provider: Tereso Matta RN) sodium chloride 0.9% (NS) flush 10 mL 10 mL, IntraVENous, Every 8 hours, First dose (after last modification) on 08/07/24 at 1145, After every IV line use 0300 (Given - Provider: Sophy Olmos, ELÍAS)1136 (Given - Provider: Adrian Palma, RN)2137 (Given - Provider: Sophy Olmos, RN) 0424 (Given - Provider: Sophy Olmos RN)1209 (Given - Provider: Ioan Sheppard, ELÍAS)2123 (Not Given - Provider: Karma Flores, ELÍAS - Reason: Other) 0345 (Canceled Entry - Provider: Automatic Discharge Provider - Comment: Automatically canceled at discontinue of medication order)0902 (Given - Provider: Tereso Matta, ELÍAS) stomahesive in petrolatum (ET Mix) Topical, Every 8 hours, First dose on Rita 08/05/24 at 1430, Nursing staff to perform dressing change: Right buttock: Pressure Injury (DTI) - Clean with soap and water, apply ET mix then leave WINDOWS SYSTEMS ADMINISTRATOR TID and PRN 0539 (Given - Provider: Sophy Olmos RN)1614 (Given - Provider: Adrian Palma, RN)2211 (Given - Provider: Sophy Olmos RN) 0609 (Given - Provider: Sophy Olmos, ELÍAS)1513 (Given - Provider: Iona Sheppard, RN)2300 (Given [...] Sheppard, RN) 0602 (Given - Provider: Karma Flores RN) acetaminophen (Tylenol) tablet 650 mg 650 [...] ELÍAS)2038 (Given - Provider: Karma Flores, ELÍAS) 0602 (Given - Provider: Karma Flores, RN)1021 (Given - Provider: Tereso Matta RN)1352 (Given - Provider: Tereso Matta RN) hydrOXYzine pamoate (Vistaril) capsule 25 mg 25 mg, Oral, Every 8 hours PRN, anxiety, Starting on Fri08/04/24 at 0211 0117 (Given - Provider: Sophy Olmos RN)0812 (Given - Provider: Adrian Ghatani, RN)1605 (Given - Provider: Adrian Palma RN)2136 (Given - Provider: Sophy Olmos, RN) 0424 (Given - Provider: Sophy Olmos, ELÍAS)1208 (Given - Provider: Iona Sheppard, RN)203 (Given - Provider: Karma Flores, RN) 0602 (Given - Provider: Karma Flores, RN)1021 (Given - Provider: Tereso Matta RN [...] and water, apply ET mix then leave WINDOWS SYSTEMS ADMINISTRATOR TID and PRN Linked Groups Order Group [...] BE BASED ON THE PRIMARY CLINICAL RECORDS. [employer] provides no warranty or guarantee of the accuracy or completeness of information in this document.
[2025-02-22 09:28] LABS: Hematocrit 38.5 % (37-47); Hemoglobin 12.6 g/dL (12.0-15.0); Mean Corp Hgb Conc 32.7 g/dL (32-36); Mean Corpuscular Volume 88.3 fL (81-99); Mean Platelet Vol. 10.3 fl (6.2-12.0); POSITIVE COUNT YES; Platelet Count 77 K/mm3 (150-450); RBC Distribution Width CV 15.0 % (11.6-14.6); RBC Distribution Width SD 49.1 fl (35.1-43.9); Red Blood Count 4.36 M/mm3 (4.2-5.4); White Blood Count 3.6 K/mm3 (4.4-11.0)
[2025-02-22 09:37] LABS: Anion Gap 11 (5-15); BUN 15 mg/dL (4-19); BUN/Creat Ratio 18.7 RATIO (10-20); Calcium,Total 9.8 mg/dL (7.6-11.0); Carbon Dioxide 29.0 mmol/L (21.0-32.0); Chloride 99 mmol/L (98-108); Glucose 85 mg/dL (70-99); Potassium 4.0 mmol/L (3.3-5.1)
== END ==
LOC: OLS.ACH 04:00
PROVIDERS: PCP Internal Medicine; Referring Provider Internal Medicine; Visit Provider Internal Medicine
DX: I50.32 Chronic diastolic (congestive) heart failure (principal); J44.9 Chronic obstructive pulmonary disease, unspecified
CPT/HCPCS: 36415; 80048; 85027

== ENCOUNTER → 2025-03-09 05:00 | Outpatient (REF) | payer MEDICARE, SELFPAY ==
--- OUTSIDE RECORDS SUMMARY | 2025-03-09 04:00 | XMS RPT_ITS | CCD ---
Author Organization [facility] Care Team Providers Care Occupational Psychologist Name Role Phone Angelo Goyal Unavailable UnavailAri Arnett Unavailable Ari Casanova Unavailable Angelo Luke Unavailable Unavaila Ari Espinoza Unavailable Kellie MCCARTY MD, DR EMILY Paul Primary Care Physician [phone] Dr. Ari Cervantes Primary Care Un jewel [...] Care Provider EMILY MCCARTY Primary Care Unavailable QMAAR CONKLIN Attending Unavailable EMILY MCCARTY Primary Care Unavailable MAYR WISEMAN Admitting Unavailabl e EDUARDA BRADEN Attending [...] / oxyCODONE; Translations: [acetaminophen-ox ycodone] Drug Allergy [facility] (4 sources) Aspartame Drug Allergy [facility] (20 sources) Codeine; Translations: [codeine] Drug Allergy 01-19-20 Rash [facility] (18 sources) LORazepam; Translations: [lorazepam] Drug Allergy 01-19-20 Mental Status Change [facility] (20 sources) Morphine; Translations: [morphine] Drug Allergy 01-19-20 Hives [facility] (4 sources) PENTobarbital; Translations: [pentobarbital] Drug Allergy [facility] (4 sources) zolpidem; Translations: [zolpidem] Drug Allergy [facility] (2 sources) Tape, plastic Allergy to substance Eruption of skin (disorder) [facility] (14 sources) Aspartame; Translations: [ASPARTAME] Drug Allergy 09-21-19 Other: See Comments [facility] (14 sources) Aspirin / oxyCODONE Hydrochloride / oxyCODONE terephthalate; Translations: [OXYCODONE [id number] ] Drug Allergy 01-19-20 Unknown [facility] (18 sources) DULoxetine; Translations: [DULOXETINE] Drug Allergy 01-19-20 Mental Status Change, Unknown [facility] (14 sources) Adhesive Tape-Silicones; Translations: [ADHESIVE TAPE-SILICONES] Drug Allergy 01-19-20 Itching [facility] (4 sources) Aspartame Drug Allergy 08-04-19 25 [facility] (4 sources) Lorazepam Propensity to adverse reactions 08-04-19 25 [facility] (4 sources) oxyCODONE Drug Allergy 08-04-19 25 [facility] (4 sources) Wound Dressing Adhesive Propensity to adverse reactions 08-04-19 25 [facility] (1 source) Adhesive Tape Drug allergy (disorder) 04-17-19 25 [facility] (1 source) Aspartame Drug Allergy 04-17-19 25 [facility] (1 source) DULoxetine Drug Allergy 04-17-19 25 [facility] (1 source) LORazepam Drug Allergy 04-17-19 25 [facility] (1 source) Morphine Drug Allergy 04-17-19 25 [facility] (1 source) oxyCODONE Drug Allergy 04-17-19 25 [facility] Medications Current Medications Medication Drug Class(es) Dates Sig (Normalized) Sig (Original) Albuterol (Eqv-Proventil HFA) 90 mcg/inh inhalation aerosol (2 sources) Start: 04-02-2022 Albuterol (Eqv-Proventil HFA) 90 mcg/inh inhalation aerosol 2 inh, Inhalation, QID, PRN NEEDED FOR WHEEZING, # 26.8 gram(s), 3 Refill(s), Pharmacy: [facility] ([facility]), 152, cm, 02/21/22 13:28:00 EST, [...] QID, # 30 EA, 3 Refill(s), [id number], 155, cm, 02/12/22 22:07:00 EST, Height, kg, 02/12/22 22:07:00 EST, Dosing Weight Start Date: 02/16/22 Status: Ordered Start: 10-31-2020 take 1 dose by inhal ation four times daily albuterol-ipratropium 2.5 mg-0.5 mg/3 mL inhalation solution Dose = 3 mL, Inhalation, QID, # 30 EA, 3 Refill(s), [id number], 152, cm, 09/05/20 14:17:00 EDT, Height, kg, [...] tab(s), 0 Refill(s), 02/22/22 13:58:00 EST, [facility]acy: [facility] #[id number], 155, cm, 02/12/22 22:07:00 EST, Height, 102.3 Start Date: 02/16/22 Stop Date: 02/22/22 Status: Ordered ampicillin 500 mg oral capsule (1 source) Penicillin-class Antibacterial Start: 01-22-2021 End: 01-29-2021 ampicillin 500 mg oral capsule Dose : 500 mg = 1 cap(s), Oral, QID, X 7 day(s), # 28 cap(s), 0 Refill(s), 01/29/21 13:28:00 EST, [facility]: [facility] #[id number], Recurrent UTI OAB (overactive bladder), 155, cm, [...] tab(s), 0 Refill(s), [facility]), 155, cm, 01/23/22 15:18:00 EST, Height, kg, 01/23/22 15:18:00 EST, Dosing Weight Start Date: 01/28/22 Status: Ordered Start: 10-08-2020 take 1 tablet by shahzad three times daily baclofen 10 mg oral tablet See Instructions, TAKE 1 TABLET BY MOUTH THREE TIMES DAILY, # 90 tab(s), 2 Refill(s), Pharmacy: [facility][id number], 152, cm, 09/05/20 14:17:00 EDT, Height, kg, 09/05/20 14:17:00 EDT, Dosing Weight Start Date: 10/08/20 Status: Ordered breath-actuated 120 actuat beclomethasone dipropionate 0.04 mg/actuat metered dose inhaler (18 sources) Corticosteroid Start: 06-11-2023 take 1 dose by inhalation twice daily Qvar Redihaler 40 mcg/inh inhalation aerosol Dose = 1 puff(s), Inhalation, BID, # 10.6 gram(s), 4 Refill(s), Pharmacy: [facility], 152.4, cm, 05/15/23 13:11:00 EST, [...] 30 gram(s), 3 Refill(s), Pharmacy: [id number], 152, cm, 02/08/21 13:40:00 EST, Height, 101.2, kg, 02/08/21 13:40:00 EST, Dosing Weight Start Date: 06/12/21 Status: Ordered Start: 09-05-2020 clotrimazole 1 % topical cream Apply 1 vidhya, Topical, BID, PRN Rash, # 30 gram(s), 0 Refill(s), [id number], 152, cm, 09/05/20 14:17:00 EDT, Height, 97.2, [...] qDay, # 30 cap(s), 1 Refill(s), [id number], Medicare annual wellness visit, subsequent COPD (chronic [...] 03/06/20 Status: Ordered take 1 capsule by [facility] once daily esomeprazole magnesium (NEXIUM ORAL) Take 1 capsule by mouth once daily. 0 Active Eucerin topical cream (1 source) Start: 01-23-2022 Eucerin topica l cream Apply 1 vidhya, Topical, BID, PRN as needed for dry skin, # 120 gram(s), 0 Refill(s), Pharmacy: [facility], Cream, 155, cm, 01/23/22 15:18:00 [...] Pharmacy: [facility] #[id number], 152, cm, 09/05/20 14:17:00 EDT, Height, kg, 09/05/20 14:17:00 EDT, Dosing Weight Start Date: 10/12/20 Status: Ordered 120 actuat fluticasone propionate 0.044 mg/actuat metered dose inhaler (3 sources) Corticosteroid Start: 06-12-2022 Flovent HFA 44 mcg/inh inhalation aerosol 2 inh, Inhalation, BID, # 31.8 gram(s), 11 Refill(s), [facility]acy: [facility] ([facility]), 152.4, cm, 05/14/22 16:04:00 EST, [...] BID, # 31.8 gram(s), 3 Refill(s), Pharmacy: [facility], 152, cm, 07/12/21 13:08:00 EDT, [...] qDay, # 90 tab(s), 3 Refill(s), Pharmacy: [facility], 152, cm, 07/12/21 13:08:00 EDT, Height, kg, 07/12/21 13:08:00 EDT, Dosing Weight Start Date: 08/07/21 Status: Ordered Start: 10-26-2020 take 1 tablet by shahzad once daily labetalol 200 mg oral tablet See Instructions, TAKE 1 TABLET BY MOUTH EVERY DAY, # 90 tab(s), 1 Refill(s), Pharmacy: [facility] #[id number], 152, cm, 09/05/20 14:17:00 EDT, Height, kg, [...] qDay, # 100 tab(s), 3 Refill(s), Pharmacy: [facility]), 155, cm, 07/25/22 13:05:00 EDT, Height, kg, 07/25/22 13:05:00 EDT, Dosing Weight Start Date: 07/30/22 Status: Ordered Start: 08-13-2021 End: 10-12-2021 levothyroxine 175 mcg (0.175 mg) oral tablet Dose : 175 mcg = 1 tab(s), Oral, qDay, # 30 tab(s), 1 Refill(s), Pharmacy: [facility], Hypothyroidism, 155, cm, 08/13/21 14:43:00 [...] Pharmacy: [facility] #[id number], 152, cm, 09/05/20 14:17:00 EDT, Height, kg, [...] # 30 tab(s), 2 Refill(s), Pharmacy: [facility], 155, cm, 08/13/21 14:43:00 EDT, [...] tab(s), 1 Refill(s), [facility]acy[facility]), 155, cm, 01/23/22 15:18:00 EST, Height, kg, 01/23/22 15:18:00 EST,... Start Date: 01/28/22 Status: Ordered Start: 12-19-2020 take 1 tablet by shahzad th three times daily before mealtime metoclopramide 5 mg oral tablet See Instructions, TAKE 1 TABLET BY MOUTH THREE TIMES DAILY BEFORE MEALS, # 270 tab(s), 0 Refill(s), Pharmacy: [facility] #[id number], 152, cm, 12/11/20 14:39:00 EDT, Height, kg, [...] Active Start: 08-07-2021 take 2 tablets by [facility] once daily Myrbetriq 25 mg oral tablet, extended release 2 tab(s), Oral, qDay, # 180 tab(s), 3 Refill(s), Pharmacy: [facility], 152, cm, 07/12/21 13:08:00 EDT, Height, kg, 07/12/21 13:08:00 EDT, Dosing Weight Start Date: 08/07/21 Status: Ordered Start: 12-11-2020 take 2 tablets by [facility] once daily Myrbetriq 25 mg oral tablet, extended release See Instructions, TAKE 2 TABLET BY MOUTH EVERY DAY, # 90 tab(s), 1 Refill(s), other reason (Rx), Dosing Weight Start Date: 12/11/20 Status: Ordered Start: 12-11-2020 take 25 mg by mouth twice gio y MYRBETRIQ 25 mg Tb24 Take 25 mg by mouth two times a day. 12/11/2020 Active Kkufz-8-AJB-EPA-Fish Oil (FI SH OIL) 1,000 mg (120 mg-180 mg) cap (13 sources) take 1 capsule by mouth twice daily Yxihd-0-VIM-EPA-Fish Oil (FISH OIL) 1,000 mg (120 mg-180 mg) cap Take 4 g by mouth two times a day. Active take 1 capsule by mouth twice da horace Lmbqm-1-VQX-EPA-Fish Oil (FISH OIL) 1,000 mg (120 mg-180 [...] Ordered Start: 01-16-2022 take 1 capsule by [facility] once daily at bedtime omeprazole 20 mg oral delayed release capsule 1 cap(s), Oral, qHS, # 90 cap(s), 3 Refill(s), Pharmacy: [facility]), 155, cm, 11/15/21 13:53:00 EDT, Height, kg, 11/15/21 13:53:00 EDT, Dosing Weight Start Date: 01/16/22 Status: Ordered Start: 12-09-2019 omeprazole 20 mg oral delayed release capsule Dose : 20 mg = 1 cap(s), Oral, qHS, # 90 cap(s), 4 Refill(s), [id number], 155, cm, 10/18/19 15:42:00 EDT, Height, kg, [...] cap(s), 0 Refill(s), 02/17/22 13:59:00 EST, [facility]acy[id number], 155, cm, 02/12/22 22:07:00 EST, Height Start [...] tab(s), 0 Refill(s), 02/25/22 14:00:00 EST, Pharmacy: [facility] #[id number], 155, cm, 02/12/22 22:07:00 EST, Height Start Date: 02/16/22 Stop Date: 02/25/22 Status: Ordered Prescription MISCellaneous (2 sources) Start: 10-22-2021 Prescription MISCellaneous See Instructions, Medihoney--aplly once daily to wound., # 1 EA, 1 Refill(s), Pharmacy: [facility], 152, cm, 10/22/21 14:47:00 EDT, [...] EA, 1 Refill(s), Pharmacy: [facility] ([facility]), 155, cm, 01/23/22 15:18:00 EST, [...] WHEEZING, # 6.7 gram(s), 3 Refill(s), Pharmacy: [facility] #[id number], 155, cm, 03/13/20 14:45:00 EST, Height, kg, 03/13/20 14:45:00 EST, Dosing Weight Start Date: 07/04/20 Status: Ordered azithromycin (Zithromax) 500 mg in sodium chloride 0.9 % 250 mL IVPB (ADD-Raleigh) (2 sources) Start: 08-04-2024 End: 08-05-2024 500 mg, IntraVENous, Administer over 60 Minutes, Every 24 hours, First dose on Fri08/04/24 at 1100, ADD-R[place] bag, Suspected Indication (Select all that apply): [...] # 90 cap(s), 1 Refill(s), Pharmacy: [facility], 155, cm, 08/13/21 14:43:00 EDT, Height, 102.8, kg, 08/13/21 14:43:00 EDT, Dosing Weight Start Date: 09/03/21 Status: Ordered Start: 01-22-2021 cephalexin 250 mg oral capsule Dose : 250 mg = 1 cap(s), Oral, Daily, UTI prophylaxis, # 90 cap(s), 3 Refill(s), Pharmacy: [facility] #[id number], 155, cm, 01/22/21 13:03:00 EST, Height, 100.5, kg, 01/22/21 13:03:00 EST, Dosing Weight Start Date: 01/22/21 Status: Ordered docusate sodium 50 mg / sennosides, chcf 8.6 mg oral tablet (6 sources) Start: [...] # 90 tab(s), 6 Refill(s), Pharmacy: [facility], 155, cm, 09/27/21 13:56:00 EDT, [...] anxiety, # 120 cap(s), 5 Refill(s), Pharmacy: [facility], 152, cm, 10/28/22 14:22:00 EDT, [...] # 360 cap(s), 1 Refill(s), Pharmacy: [facility], 155, cm, 08/13/21 14:43:00 EDT, Height, kg, 08/13/21 14:43:00 EDT, Dosing Weight Start Date: 09/20/21 Status: Ordered Start: 12-06-2020 take 1 capsule by mo uth three times daily hydrOXYzine pamoate 50 mg oral capsule See Instructions, TAKE 1 CAPSULE BY MOUTH THREE TIMES DAILY, # 270 cap(s), 1 Refill(s), Pharmacy: [facility] #[id number], 152, cm, 09/05/20 14:17:00 EDT, Height, kg, [...] reach optimal image enhancement polyethylene glycol 3350 60032 mg powder for oral solution (2 sources) [...] Start: 01-22-2022 take 1 capsule by [facility] twice daily potassium chloride 10 mEq oral capsule, extended release 1 cap(s), Oral, BID, # 180 cap(s), 3 Refill(s), [facility]), 155, cm, 11/15/21 13:53:00 EDT, Height, kg, 11/15/21 13:53:00 EDT, Dosing Weight Start Date: 01/22/22 Status: Ordered Start: 03-13-2020 potassium chlo ride 10 mEq oral capsule, extended release Dose : 10 mEq = 1 cap(s), Oral, BID, # 180 cap(s), 3 Refill(s), Pharmacy: [facility] #[id number], 155, cm, 03/13/20 14:45:00 EST, Height, kg, 03/13/20 14:45:00 EST, Dosing Weight Start Date: 03/13/20 Status: Ordered take 1 tablet by [facility] twice daily potassium chloride ER (KLOR-CON) [...] Every 8 hours, Firs t dose on Irta 08/05/24 at 1430, Nursing staff to perform [...] and water, apply ET mix then leave [facility] SPEC TID and PRN traMADol hydrochloride 50 mg [...] initial encounter; Translations: [Traumatic rhabdomyolysis, initial encounter ([facility])] Onset: 4 Episodic Other lower [...] MCG Sample Lot# [id number] Exp: 02/01 Normal [facility] 37on 09-01-2024 37 YOUR APPOINTMENT TODAY WAS WITH THE [facility] L[facility]G NODULE [facility], COPD CLINIC, PULMONARY AND SLEEP MEDICINE OFFICE. PLEASE CALL OUR OFFICE AT [phone] for our [place] office location or [phone] for our [place] location, IF YOU HAVE NOT RECEIVED YOUR [...] to make improvements. COVID-19 VACCINATION INFORMATION: PH. [phone] [email or web address] S/VACCINE [facility] Central Scheduling [phone] [facility] Sleep Scheduling [phone] Normal [facility] Office Visiton 09-01-2024 Follow-up visit [id number] Krish Peralta 1940 F Date Provider Department Center 09/01/2024 PAULETTE HECK [facility] PULM None No family history on file Level of Service:88687 [place] OFFICE/OUTPATIENT ESTABLISHED MOD MDM 30 MIN Reason for Visit and Comments: Hospital Follow-up [832] COPD [313] - PNEUMONIA, HFLU, ARF,-O2 @ NIGHT PRN Normal [facility] Progress Noteon 09-01-2024 Progress Note [facility] Pulmonary Medicine [address] [place] [address] Date of Service: 09/01/2024 Visit type: An [...] Followed by pulmonary Presents today accompanied by food mobile driver, Asim, from [facility] where patient resides. Patient is known as [...] Moderately i (more content not included)... Normal [facility] Basic Metabolic Profile (BMP )on 08-18-2024 BUN/CRE 10.4 RATIO Normal 10-20 [facility] Comment on above: Order Comment: 103.1 Performed By: #### L 100.0500, L500.2500 #### [facility] [address] [place], [address] Calcium [Mass/Vol] 9.4 mg/dL Normal 7.6-11.0 [facility] Comment on above: Order Comment: 103.1 Performed By: #### L 100.0500, L500.2500 #### [facility] [address] [place], [address] Chloride [Moles/Vol] 100 mmol/L Normal 98-108 [facility] Comment on above: Order Comment: 103.1 Performed By: #### L 100.0500, L500.2500 #### [facility] [address] [place], [address] CO2 [Moles/Vol] 28.5 mmol/L Normal 21.0-32.0 [facility] Comment on above: Order Comment: 103.1 Performed By: #### L 100.0500, L500.2500 #### [facility] [address] [place], [address] Creatinine [Mass/Vol] 0.84 mg/dL Normal 0.70-1.20 [facility] Comment on above: Order Comment: 103.1 Performed By: #### L 100.0500, L500.2500 #### [facility] [address] [place], [address] GAP 10 Normal 5-15 [facility] Comment on above: Order Comment: 103.1 Performed By: #### L 100.0500, L500.2500 #### [facility] [address] [place], [address] GFR/1.73 sq M.predicted among non-blacks MDRD (S/P/Bld) [Vol rate/Area] 68 mL/min/{1.73_m2} Normal >60 [facility] Comment on above: Order Comment: 103.1 Result Comment: mL/m in/1.73m2 CKD-EPI Creatinine Equation (2020) Performed By: #### L 100.0500, L500.2500 #### [facility] [address] [place], [address] Glucose [Mass/Vol] 107 mg/dL High 70-99 [facility] Comment on above: Order Comment: 103.1 Performed By: #### L 100.0500, L500.2500 #### [facility] [address] [place], [address] Potassium [Moles/Vol] 3.9 mmol/L Normal 3.3-5.1 [facility] Comment on above: Order Comment: 103.1 Performed By: #### L 100.0500, L500.2500 #### [facility] [address] [place], [address] Sodium [Moles/Vol] 139 mmol/L Normal 133-145 [facility] Comment on above: Order Comment: 103.1 Performed By: #### L 100.0500, L500.2500 #### [facility] [address] [place], [address] Urea nitrogen [Mass/Vol] 9 mg/dL Normal 4-19 [facility] Comment on above: Order Comment: 103.1 Performed By: #### L 100.0500, L500.2500 #### [facility] [address] [place], [address] CBC-Complete Blood Cnt No Di ffon 08-18-2024 Erythrocyte distribution width (RBC) [Ratio] 14.9 % High 11.6-14.6 [facility] Comment on above: Order Comment: 103.1 Performed By: #### L 400.0001, M1.0 #### [facility] [address] [place], [address] Hematocrit (Bld) [Volume fraction] 39.8 % Normal 37-47 [facility] Comment on above: Order Comment: 103.1 Performed By: #### L 400.0001, M1.0 #### [facility] [address] [place], [address] Hemoglobin (Bld) [Mass/Vol] 12.8 g/dL Normal 12.0-15.0 [facility] Comment on above: Order Comment: 103.1 Performed By: #### L 400.0001, M1.0 #### [facility] [address] [place], [address] MCH (RBC) [Entitic mass] 28.7 pg Normal 27.0-32.0 [facility] Comment on above: Order Comment: 103.1 Performed By: #### L 400.0001, M1.2199 #### [facility] [address] [place], [address] MCHC (RBC) [Mass/Vol] 32.2 g/dL Normal 32-36 [facility] Comment on above: Order Comment: 103.1 Performed By: #### L 400.0001, #### [facility] [address] [place], [address] MCV (RBC) [Entitic vol] 89.2 fL Normal 81-99 [facility] Comment on above: Order Comment: 103.1 Performed By: #### L 400.0001, #### [facility] [address] [place], [address] Platelet mean volume (Bld) [Entitic vol] 11.2 fL Normal 6.2-12.0 [facility] Comment on above: Order Comment: 103.1 Performed By: #### L 400.0001, #### [facility] [address] [place], [address] Platelets (Bld) [#/Vol] 100 10*3/uL Low 150-450 [facility] Comment on above: Order Comment: 103.1 Performed By: #### L 400.0001, #### [facility] [address] [place], [address] RBC (Bld) [#/Vol] 4.46 10*6/uL Normal 4.2-5.4 [facility] Comment on above: Order Comment: 103.1 Performed By: #### L 400.0001, #### [facility] [address] [place], [address] RDW SD 48.4 fl High 35.1-43.9 [facility] Comment on above: Order Comment: 103.1 Performed By: #### L 400.0001, #### [facility] [address] [place], [place], [address] WBC (Bld) [#/Vol] 6.4 10*3/uL Normal 4.4-11.0 [facility] Comment on above: Order Comment: 103.1 Performed By: #### L 400.0001, M100.0 #### [facility] [address] [place], [address] 36on 08-13-2024 36 COPD Navigator Note Called patient on home phone. No answer. Left Voicemail. [facility] [id number] 08-11-2024 [id number] Next Site of Care Admission Date: 08/03/2024 04:21 PM Patient Name: KRISH PERALTA Location: [address] [facility] [id number] A Date of : 1940 ------- Placement Information ------- Referral Type:Shelter ICF - Return Referral ID:[id number] Provider Name:Tomás Farley [employer]. Address 1:[address] [facility] Address 2: City:[place] Selection Factors:Returning to Facility State:[place] Normal [facility] [id number] Discharge med list transmitted to RETURN BACK TO [facility] via Careport per TCC request. [facility] [id number] Rounds this am DCP: DC today [employer] retail support associate time scheduled for 430 Facility notified RN notified with time and P# for report HALFWAY HOUSE COUNSELOR tasked to send DC packet and MAR to acility [facility] BASIC METABOLIC PANELon 06-0 Anion gap [Moles/Vol] 10 mmol/L Normal 3-13 [facility] Comment on above: Performed By: #### L AB15 ####Blood Tester: JOHAN BHANDARI ([id number])[facility] [place] [address] Calcium [Mass/Vol] 9.6 mg/dL Normal 8.8-10.0 [facility] Comment on above: Performed By: #### L AB15 ####Blood Tester: JOHAN BHANDARI ([id number])[facility] ([facility])[address] [place] [address] [place] Chloride [Moles/Vol] 100 mmol/L Normal 98-107 [facility] Comment on above: Performed By: #### L AB15 ####Blood Tester: JOHAN BHANDARI ([id number])[facility] ([facility])[address] [place] [address] [place] CO2 [Moles/Vol] 27 mmol/L Normal 23-31 [facility] Comment on above: Performed By: #### L AB15 ####Blood Tester: JOHAN BHANDARI ([id number])[facility] ([facility])[address] Creatinine [Mass/Vol] 0.75 mg/dL Normal 0.57-1.11 [facility] Comment on above: Performed By: #### L AB15 ####Blood Tester: JOHAN BHANDARI ([id number])[facility] [place] [address] [place] GLOMERULAR FILTRATION RATE ML/MIN/1.73 SQ M.PREDICTED 78.1 mL/min/1.73m*2 Normal >60.0 [facility] Comment on above: Result Comment: Calc ulation based on the Chronic Kidney Disease Epidemiology Collaboration (CKD-EPI) equation refit without adjustment for race Performed By: #### L AB15 ####Blood Tester: JOHAN BHANDARI ([id number])[facility] Glucose [Mass/Vol] 78 mg/dL Low 82-115 [facility] Comment on above: Performed By: #### L AB15 ####Blood Tester: JOHAN BHANDARI ([id number])[facility] ([facility])[address] Potassium [Moles/Vol] 4.1 mmol/L Normal 3.5-5.1 [facility] Comment on above: Result Comment: [facility] potassium values may be up to 0.5 mmol/L lower than serum values. Performed By: #### L [id number] ####Blood Tester: JOHAN BHANDARI ([id number])[facility] ([facility] Sodium [Moles/Vol] 137 mmol/L Normal 136-145 [facility] Comment on above: Performed By: #### L [id number] ####Blood Tester: JOHAN BHANDARI ([id number])[facility] (SBHLAB)[address] Urea nitrogen [Mass/Vol] 18 mg/dL Normal 9-23 [facility] Comment on above: Performed By: #### L [id number] ####Blood Tester: JOHAN BHANDARI ([id number])[facility] (SBHLAB)[address] Basic metabolic 1998 panelon 08-11-2024 Anion gap [Moles/Vol] 10 mmol/L 3 - 13 mmol/L [facility] Calcium [Mass/Vol] 9.6 mg/dL 8.8 - 10. 0 mg/dL [facility] Chloride [Moles/Vol] 100 mmol/L 98 - 10 7 mmol/L [facility] CO2 [Moles/Vol] 27 mmol/L 23 - 31 mmol/L [facility] Creatinine [Mass/Vol] 0.75 mg/dL 0.57 - 1.11 mg/dL [facility] GFR/1.73 sq M.predicted (S/P/Bld) [Vol rate/Area] 78.1 mL/min - PINF [facility] Comment on above: Calculation based on the Chronic Kidney Disease Epidemiology Collaboration (CKD-EPI) equation refit without adjustment for race Glucose [Mass/Vol] 78 mg/dL Low 82 - 115 mg/dL [facility] Interpretation and review of laboratory results Abnormal [facility] Potassium [Moles/Vol] 4.1 mmol/L 3.5 - 5.1 mmol/L [facility] Comment on above: Plasma potassium gustavo ues may be up to 0.5 mmol/L lower than serum values. Sodium [Moles/Vol] 137 mmol/L 136 - 145 mmol/L [facility] Urea nitrogen [Mass/Vol] 18 mg/dL 9 - 23 mg/dL [facility] CBC W Auto Differential pane l (Bld)on 08-11-2024 Basophils (Bld) [#/Vol] 0 10*3/uL 0.0 - 0.2 10*3/uL [facility] Basophils/100 WBC (Bld) 0.1 % 0.0 - 2.0 % [facility] Eosinophils (Bld) [#/Vol] 0.1 10*3/uL 0.0 - 0.5 10*3/uL [facility] Eosinophils/100 WBC (Bld) 1.5 % 0.0 - 6.0 % [facility] Erythrocyte distribution width (RBC) [Ratio] 13.9 % 11.5 - 15.0 % [facility] Hematocrit (Bld) [Volume fraction] 42.1 % 35.0 - 47.0 % [facility] Hemoglobin (Bld) [Mass/Vol] 13.7 g/dL 11.7 - 16.0 g/dL [facility] Immature granulocytes (Bld) [#/Vol] 0.1 10*3/uL High NINF - 0.1 10*3/uL [facility] Immature granulocytes/100 WBC (Bld) 1.2 % 0.0 - 2.0 % [facility] Interpretation and review of laboratory results Abnormal [facility] IPF 1 [facility] Lymphocytes (Bld) [#/Vol] 1.5 10*3/uL 1.0 - 4.3 10*3/uL [facility] Lymphocytes/100 WBC (Bld) 20.2 % 15.0 - 45.0 % [facility] MCH (RBC) [Entitic mass] 28.7 pg 26. 0 - 34.0 pg [facility] MCHC (RBC) [Mass/Vol] 32.5 % 30.5 - 36.0 % [facility] MCV (RBC) [Entitic vol] 88.1 fL 77.0 - 99.0 fL [facility] Monocytes (Bld) [#/Vol] 0.9 10*3/uL 0.0 - 0.9 10*3/uL [facility] Monocytes/100 WBC (Bld) 11.8 % 5.0 - 13.0 % [facility] Neutrophils (Bld) [#/Vol] 4.9 10*3/uL 1.8 - 7.5 10*3/uL [facility] Neutrophils/100 WBC (Bld) 65.2 % 38.0 - 82.0 % [facility] Nucleated RBC/100 WBC (Bld) [Ratio] 0 % [facility] Platelet mean volume (Bld) [Entitic vol] 9.1 fL 9.0 - 12.7 fL [facility] Platelets (Bld) [#/Vol] 114 10*3/uL Low 140 - 440 10*3/uL [facility] RBC (Bld) [#/Vol] 4.78 10*6/uL 3.80 - 5.2 0 10*6/uL [facility] WBC (Bld) [#/Vol] 7.5 10*3/uL 3.6 - 10.7 10*3/uL [facility] CBC WITH AUTO DIFFERENTIALon 08-11-2024 Basophils (Bld) [#/Vol] 0.0 10*3/uL Normal 0.0-0.2 [facility] Comment on above: Performed By: #### L [id number] ####Blood Tester: JOHAN BHANDARI ([id number])[facility] [place] (SBHLAB)[address] Basophils/100 WBC (Bld) 0.1 % Normal 0.0-2.0 [facility] Comment on above: Performed By: #### L [id number] ####Blood Tester: JOHAN BHANDARI ([id number])[facility] [place] (SBHLAB)[address] Eosinophils (Bld) [#/Vol] 0.1 10*3/uL Normal 0.0-0.5 [facility] Comment on above: Performed By: #### L [id number] ####Blood Tester: JOHAN BHANDARI ([id number])[facility] [place] (SBHLAB)[address] [place] [address] Eosinophils/100 WBC (Bld) 1.5 % Normal 0.0-6.0 [facility] Comment on above: Performed By: #### L [id number] ####Blood Tester: JOHAN BHANDARI ([id number])[facility] [place] (SBHLAB)[address] Erythrocyte distribution width (RBC) [Ratio] 13.9 % Normal 11.5-15.0 [facility] Comment on above: Performed By: #### L [id number] ####Blood Tester: JOHAN BHANDARI ([id number])[facility] [place] (SBHLAB)[address] Hematocrit (Bld) [Volume fraction] 42.1 % Normal 35.0-47.0 [facility] Comment on above: Performed By: #### L [id number] ####Blood Tester: JOHAN BHANDARI ([id number])[facility] (SBHLAB)[address] Hemoglobin (Bld) [Mass/Vol] 13.7 g/dL Normal 11.7-16.0 [facility] Comment on above: Performed By: #### L [id number] ####Blood Tester: JOHAN BHANDARI ([id number])[facility] [place] (SBHLAB)[address] IMMATURE GRANS % 1.2 % Normal 0.0-2.0 [facility] Comment on above: Performed By: #### L [id number] ####Blood Tester: JOHAN BHANDARI ([id number])[facility] (SBAB)[address] IMMATURE GRANS ABSOLUTE 0.1 10*3/uL High <0.1 [facility] Comment on above: Performed By: #### L [id number] ####Blood Tester: JOHAN BHANDARI ([id number])[facility] (SBHLAB)[address] IPF 1 Normal [facility] Comment on above: Performed By: #### L [id number] ####Blood Tester: JOHAN BHANDARI ([id number])[facility] (SBHLAB)[address] Lymphocytes (Bld) [#/Vol] 1.5 10*3/uL Normal 1.0-4.3 [facility] Comment on above: Performed By: #### L [id number] ####Blood Tester: JOHAN BHANDARI ([id number])[facility] (SBHLAB)[address] Lymphocytes/100 WBC (Bld) 20.2 % Normal 15.0-45.0 [facility] Comment on above: Performed By: #### L [id number] ####Blood Tester: JOHAN BHANDARI ([id number])[facility] (SBHLAB)[address] MCH (RBC) [Entitic mass] 28.7 pg Normal 26.0-34.0 [facility] Comment on above: Performed By: #### L [id number] ####Blood Tester: JOHAN BHANDARI ([id number])[facility] [place] (SB[facility])[address] MCHC 32.5 % Normal 30.5-36.0 [facility] Comment on above: Performed By: #### L [id number] ####Blood Tester: JOHAN BHANDARI ([id number])[facility] [place] (SBHLAB)[address] [place] [address] MCV (RBC) [Entitic vol] 88.1 fL Normal 77.0-99.0 [facility] Comment on above: Performed By: #### L [id number] ####Blood Tester: JOHAN BHANDARI ([id number])[facility] [place] (SBHLAB)[address] [place] [address] Monocytes (Bld) [#/Vol] 0.9 10*3/uL Normal 0.0-0.9 [facility] Comment on above: Performed By: #### L [id number] ####Blood Tester: JOHAN BHANDARI ([id number])[facility] [place] (SBHLAB)[address] [place] [address] Monocytes/100 WBC (Bld) 11.8 % Normal 5.0-13.0 [facility] Comment on above: Performed By: #### L [id number] ####Blood Tester: JOHAN BHANDARI ([id number])[facility] [place] (SBHLAB)[address] [place] [address] NEUTROPHILS ABSOLUTE 4.9 10*3/uL Normal 1.8-7.5 [facility] Comment on above: Performed By: #### L [id number] ####Blood Tester: JOHAN BHANDARI ([id number])[facility] [place] (SB[facility])[address] Neutrophils/100 WBC (Bld) 65.2 % Normal 38.0-82.0 [facility] Comment on above: Performed By: #### L [id number] ####Blood Tester: JOHAN BHANDARI ([id number])[facility] [place] (SB[facility])[address] NRBC 0.0 /100 WBCs Normal 0.0-2.0 [facility] Comment on above: Performed By: #### L [id number] ####Blood Tester: JOHAN BHANDARI ([id number])[facility] (SB[facility]AB)[address] Platelet mean volume (Bld) [Entitic vol] 9.1 fL Normal 9.0-12.7 [facility] Comment on above: Performed By: #### L [id number] ####Blood Tester: JOHAN BHANDARI ([id number])[facility] (SBHLAB)[address] Platelets (Bld) [#/Vol] 114 10*3/uL Low 140-440 [facility] Comment on above: Performed By: #### L [id number] ####Blood Tester: JOHAN BHANDARI ([id number])[facility] [place] (SBHLAB)[address] [place] [address] [place] RBC (Bld) [#/Vol] 4.78 10*6/uL Normal 3.80-5.20 [facility] Comment on above: Performed By: #### L [id number] ####Blood Tester: JOHAN BHANDARI ([id number])[facility] (SBHLAB)[address] [place] [address] [place] WBC (Bld) [#/Vol] 7.5 10*3/uL Normal 3.6-10.7 [facility] Comment on above: Performed By: #### L [id number] ####Blood Tester: JOHAN BHANDARI ([id number])[facility] (SBHLAB)[address] Nursing Noteon 08-11-2024 Nursing Note Patient sent with belongings with transport to facility at this time. Normal [facility] Nursing Note Report called to facility [facility], hallway 100. RN familiar with patient. Waiting on transport. Normal [facility] Progress Noteon 08-11-2024 Progress Note PHYSICAL THERAPY [facility] Treatment Note Name/MRN: Krish Peralta ([id number]) Date of : 1940 Age: 83 y.o. [facility]: [facility] A Visit #: 5 out of 8 Discharge Recommendation: Halfway Facility Equipment Needed: No Assessment Pt continues to make good overall progress towards established therapy goals this date. Remains limited by SOB and fatigue. Pt completed STS transfers with fww at [facility], Gait training with fww completed at [facility]/SBA. Pt tolerated all activity well and gave [...] Pt completed gait training with fww at [facility] progressing to SBAx1. Cues for proper foot [...] 10 Minutes (gait x1) Chuck Ruvalcaba, PT [facility] Progress Note [facility] Pulmonary Medicine [address] [place] [id number] Patient - Krish Peralta, Age - 83 [...] data in the 24 hours ending 08/11/24 0910 Exam General appearance: Awake and alert intermittently [...] from pulmonary standpoint Darrick Marcum Pulmonary Medicine [facility] [1] amLODIPine, 5 mg, Oral, q24h enoxaparin, 30 mg, SubCUTAneous, 2 times per day escitalopram, 10 mg, Oral, Nightly furosemide, 20 mg, Oral, BID ipratropium-albuterol , 1 ampule, Nebulization, q4h WA labetalol, 200 mg, Oral, q24h levothyroxine, 137 mcg, Oral, q24h aydee (more content not included)... Normal [facility] 30on 08-10-2024 30 Problem: Knowledge Deficit Goal: Patient/family/caregi krysta demonstrates understanding of disease process, treatment plan, medications, and discharge instructions Outcome: Progressing Problem: Potential for Compromised Skin Integrity Goal: Skin Integrity is Maintained or Improved Outcome: Progressing Problem: Urinary Incontinence Goal: Perineal skin integrity is maintained or improved Outcome: Progressing Normal [facility] 30 Problem: Knowledge Deficit Goal: Patient/family/caregi [...] by Sophy Olmos RN Outcome: Progressing Normal [facility] 30 Problem: Knowledge Deficit Goal: Patient/family/caregi [...] Goal: Promote nutritional intake Outcome: Progressing Normal [facility] [id number] 08-10-2024 [id number] COPD Navigator Note Introduced myself and explained [...] with scheduling hospital follow-up with pulmonary. Normal [facility] CBC W Auto Differential pane l (Bld)on 08-10-2024 Basophils (Bld) [#/Vol] 0 10*3/uL 0.0 - 0.2 10*3/uL [facility] Basophils/100 WBC (Bld) 0.1 % 0.0 - 2.0 % [facility] Eosinophils (Bld) [#/Vol] 0 10*3/uL 0.0 - 0.5 10*3/uL [facility] Eosinophils/100 WBC (Bld) 0.2 % 0.0 - 6.0 % [facility] Erythrocyte distribution width (RBC) [Ratio] 13.8 % 11.5 - 15.0 % [facility] Hematocrit (Bld) [Volume fraction] 41.1 % 35.0 - 47.0 % [facility] Hemoglobin (Bld) [Mass/Vol] 13.3 g/dL 11.7 - 16.0 g/dL [facility] Immature granulocytes (Bld) [#/Vol] 0.1 10*3/uL High NINF - 0.1 10*3/uL [facility] Immature granulocytes/100 WBC (Bld) 1.5 % 0.0 - 2.0 % [facility] Interpretation and review of laboratory results Abnormal [facility] IPF 1 [facility] Lymphocytes (Bld) [#/Vol] 1.4 10*3/uL 1.0 - 4.3 10*3/uL [facility] Lymphocytes/100 WBC (Bld) 15.4 % 15.0 - 45.0 % [facility] MCH (RBC) [Entitic mass] 28.7 pg 26. 0 - 34.0 pg [facility] MCHC (RBC) [Mass/Vol] 32.4 % 30.5 - 36.0 % [facility] MCV (RBC) [Entitic vol] 88.6 fL 77.0 - 99.0 fL [facility] Monocytes (Bld) [#/Vol] 1 10*3/uL High 0.0 - 0.9 10*3/uL [facility] Monocytes/100 WBC (Bld) 10.3 % 5.0 - 13.0 % [facility] Neutrophils (Bld) [#/Vol] 6.7 10*3/uL 1.8 - 7.5 10*3/uL [facility] Neutrophils/100 WBC (Bld) 72.5 % 38.0 - 82.0 % [facility] Nucleated RBC/100 WBC (Bld) [Ratio] 0 % [facility] Platelet mean volume (Bld) [Entitic vol] 9.1 fL 9.0 - 12.7 fL [facility] Platelets (Bld) [#/Vol] 133 10*3/uL Low 140 - 440 10*3/uL [facility] RBC (Bld) [#/Vol] 4.64 10*6/uL 3.80 - 5.2 0 10*6/uL [facility] WBC (Bld) [#/Vol] 9.2 10*3/uL 3.6 - 10.7 10*3/uL [facility] CBC WITH AUTO DIFFERENTIALon 08-10-2024 Basophils (Bld) [#/Vol] 0.0 10*3/uL Normal 0.0-0.2 [facility] Comment on above: Performed By: #### L [id number] ####Blood Tester: JOHAN BHANDARI ([id number])[facility] (SBAB)[address] [place] [address] Basophils/100 WBC (Bld) 0.1 % Normal 0.0-2.0 [facility] Comment on above: Performed By: #### L [id number] ####Blood Tester: JOHAN BHANDARI ([id number])[facility] ([facility])[address] Eosinophils (Bld) [#/Vol] 0.0 10*3/uL Normal 0.0-0.5 [facility] Comment on above: Performed By: #### L [id number] ####Blood Tester: JOHAN BHANDARI ([id number])[facility] (SBHLAB)[address] [place] [address] [place] Eosinophils/100 WBC (Bld) 0.2 % Normal 0.0-6.0 [facility] Comment on above: Performed By: #### L [id number] ####Blood Tester: JOHAN WATTSCANDY ([id number])[facility] (SBAB)[address] Erythrocyte distribution width (RBC) [Ratio] 13.8 % Normal 11.5-15.0 [facility] Comment on above: Performed By: #### L [id number] ####Blood Tester: JOHAN WATTSCANDY ([id number])[facility] Hematocrit (Bld) [Volume fraction] 41.1 % Normal 35.0-47.0 [facility] Comment on above: Performed By: #### L [id number] ####Blood Tester: JOHAN ALEGRIAJOHNNY ([id number])[facility])[address] [place] [address] Hemoglobin (Bld) [Mass/Vol] 13.3 g/dL Normal 11.7-16.0 [facility] Comment on above: Performed By: #### L [id number] ####Blood Tester: JOHAN WATTSCANDY ([id number])[facility] ([facility] IMMATURE GRANS % 1.5 % Normal 0.0-2.0 [facility] Comment on above: Performed By: #### L [id number] ####Blood Tester: JOHAN WATTSCANDY ([id number])[facility] IMMATURE GRANS ABSOLUTE 0.1 10*3/uL High <0.1 [facility] Comment on above: Performed By: #### L [id number] ####Blood Tester: JOHAN WATTSCANDY ([id number])[facility] ([facility])[address] IPF 1 Normal [facility] Comment on above: Performed By: #### L [id number] ####Blood Tester: JOHAN BHANDARI ([id number])[facility]ITAL[facility] (SBHLAB)[address] Lymphocytes (Bld) [#/Vol] 1.4 10*3/uL Normal 1.0-4.3 [facility] Comment on above: Performed By: #### L [id number] ####Blood Tester: JOHAN BHANDARI ([id number])[facility] (SBHLAB)[address] Lymphocytes/100 WBC (Bld) 15.4 % Normal 15.0-45.0 [facility] Comment on above: Performed By: #### L [id number] ####Blood Tester: JOHAN BHANDARI ([id number])[facility]ITALSujata [facility] (SBHLAB)[address] [place] [address] MCH (RBC) [Entitic mass] 28.7 pg Normal 26.0-34.0 [facility] Comment on above: Performed By: #### L [id number] ####Blood Tester: JOHAN BHANDARI ([id number])[facility]ITALSu[facility]ata [facility] (SBHLAB)[address] MCHC 32.4 % Normal 30.5-36.0 [facility] Comment on above: Performed By: #### L [id number] ####Blood Tester: JOHAN THONY ([id number])[facility]ITALSujata [facility] (SBHLAB)[address] MCV (RBC) [Entitic vol] 88.6 fL Normal 77.0-99.0 [facility] Comment on above: Performed By: #### L [id number] ####Blood Tester: JOHAN BHANDARI ([id number])[facility]ITALSu[facility]ata [facility] (SB[facility])[address] Monocytes (Bld) [#/Vol] 1.0 10*3/uL High 0.0-0.9 [facility] Comment on above: Performed By: #### L [id number] ####Blood Tester: JOHAN BHANDARI ([id number])[facility] [place] (SBHLAB)[address] Monocytes/100 WBC (Bld) 10.3 % Normal 5.0-13.0 [facility] Comment on above: Performed By: #### L [id number] ####Blood Tester: JOHAN BHANDARI ([id number])[facility] [place] (SB[facility])[address] NEUTROPHILS ABSOLUTE 6.7 10*3/uL Normal 1.8-7.5 [facility] Comment on above: Performed By: #### L [id number] ####Blood Tester: JOHAN BHANDARI ([id number])[facility] [place] (SB[facility])[address] Neutrophils/100 WBC (Bld) 72.5 % Normal 38.0-82.0 [facility] Comment on above: Performed By: #### L [id number] ####Blood Tester: JOHAN BHANDARI ([id number])[facility] [place] (SB[facility])[address] NRBC 0.0 /100 WBCs Normal 0.0-2.0 [facility] Comment on above: Performed By: #### L [id number] ####Blood Tester: JOHAN BHANDARI ([id number])[facility] [place] (SB[facility])[address] Platelet mean volume (Bld) [Entitic vol] 9.1 fL Normal 9.0-12.7 [facility] Comment on above: Performed By: #### L [id number] ####Blood Tester: JOHAN BHANDARI ([id number])[facility] [place] (SB[facility])[address] Platelets (Bld) [#/Vol] 133 10*3/uL Low 140-440 [facility] Comment on above: Performed By: #### L [id number] ####Blood Tester: JOHAN BHANDARI ([id number])[facility] (SBHLAB)[address] RBC (Bld) [#/Vol] 4.64 10*6/uL Normal 3.80-5.20 [facility] Comment on above: Performed By: #### L [id number] ####Blood Tester: JOHAN BHANDARI ([id number])[facility] ([facility])[address] WBC (Bld) [#/Vol] 9.2 10*3/uL Normal 3.6-10.7 [facility] Comment on above: Performed By: #### L [id number] ####Blood Tester: JOHAN BHANDARI ([id number])[facility] (HLAB)[address] [place] [address] COMPREHENSIVE METABOLIC PANE Alex 08-10-2024 Albumin [Mass/Vol] 2.8 g/dL Low 3.4-4.8 [facility] Comment on above: Performed By: #### L [id number] #### Blood Tester: JOHAN BHANDARI ([id number]) [facility] (HLAB) [address] ALP [Catalytic activity/Vol] 78 U/L Normal 40-150 [facility] Comment on above: Performed By: #### L [id number] #### Blood Tester: JOHAN BHANDARI ([id number]) [facility] (SBHLAB) [address] ALT [Catalytic activity/Vol] 9 U/L Normal <30 [facility] Comment on above: Performed By: #### L [id number] #### Blood Tester: JOHAN BHANDARI ([id number]) [facility] (SBHLAB) [address] Anion gap [Moles/Vol] 9 mmol/L Normal 3-13 [facility] Comment on above: Performed By: #### L [id number] #### Blood Tester: JOHAN BHANDARI ([id number]) [facility] [place] (SB[facility]) [address] AST [Catalytic activity/Vol] 17 U/L Normal <34 [facility] Comment on above: Performed By: #### L [id number] #### Blood Tester: JOHAN BHANDARI ([id number]) [facility] [place] (SBHLAB) [address] [place] [address] [place] Bilirubin [Mass/Vol] 0.3 mg/dL Normal <1.2 [facility] Comment on above: Performed By: #### L [id number] #### Blood Tester: JOHAN BHANDARI ([id number]) [facility] [place] (SB[facility]) [address] Calcium [Mass/Vol] 9.4 mg/dL Normal 8.8-10.0 [facility] Comment on above: Performed By: #### L [id number] #### Blood Tester: JOHAN BHANDARI ([id number]) [facility] [place] (SBHL[facility]) [address] [place] [address] [place] Chloride [Moles/Vol] 101 mmol/L Normal 98-107 [facility] Comment on above: Performed By: #### L [id number] #### Blood Tester: JOHAN BHANDARI ([id number]) [facility] [place] (SBHL[facility]) [address] [place] [address] [place] CO2 [Moles/Vol] 27 mmol/L Normal 23-31 [facility] Comment on above: Performed By: #### L [id number] #### Blood Tester: JOHAN BHANDARI ([id number]) [facility] [place] ([facility] [address] [place] [address] [place] Creatinine [Mass/Vol] 0.80 mg/dL Normal 0.57-1.11 [facility] Comment on above: Performed By: #### L [id number] #### Blood Tester: JOHAN BHANDARI ([id number]) [facility] [place] ([facility]) [address] GLOMERULAR FILTRATION RATE ML/MIN/1.73 SQ M.PREDICTED 72.3 mL/min/1.73m*2 Normal >60.0 [facility] Comment on above: Result Comment: Calc ulation based on the Chronic Kidney Disease Epidemiology Collaboration (CKD-EPI) equation refit without adjustment for race Performed By: #### L [id number] #### Blood Tester: JOHAN BHANDARI ([id number]) [facility] ([facility]) [address] Glucose [Mass/Vol] 112 mg/dL Normal 82-115 [facility] Comment on above: Performed By: #### L [id number] #### Blood Tester: JOHAN BHANDARI ([id number]) [facility] ([facility]) [address] [address] Potassium [Moles/Vol] 4.2 mmol/L Normal 3.5-5.1 [facility] Comment on above: Result Comment: [facility] potassium values may be up to 0.5 mmol/L lower than serum values. Performed By: #### L [id number] #### Blood Tester: JOHAN BHANDARI ([id number]) [facility] ([facility]) [address] Protein [Mass/Vol] 6.7 g/dL Normal 6.4-8.3 [facility] Comment on above: Performed By: #### L [id number] #### Blood Tester: JOHAN BHANDARI ([id number]) [facility] ([facility]) [address] Sodium [Moles/Vol] 137 mmol/L Normal 136-145 [facility] Comment on above: Performed By: #### L [id number] #### Blood Tester: JOHAN BHANDARI ([id number]) [facility] ([facility]) [address] Urea nitrogen [Mass/Vol] 24 mg/dL High 9-23 [facility] Comment on above: Performed By: #### L [id number] #### Blood Tester: JOHAN BHANDARI ([id number]) [facility] ([facility]) [address] [place] [address] Comprehensive metabolic 1998 panelon 08-10-2024 Albumin [Mass/Vol] 2.8 g/dL Low 3.4 - 4.8 g/dL [facility] ALP [Catalytic activity/Vol] 78 U/L 40 - 150 U/L [facility] ALT [Catalytic activity/Vol] 9 U/L NINF - 30 U/L [facility] Anion gap [Moles/Vol] 9 mmol/L 3 - 13 mmol/L [facility] AST [Catalytic activity/Vol] 17 U/L NINF - 34 U/L [facility] Bilirubin [Mass/Vol] 0.3 mg/dL NINF - 1.2 mg/dL [facility] Calcium [Mass/Vol] 9.4 mg/dL 8.8 - 10. 0 mg/dL [facility] Chloride [Moles/Vol] 101 mmol/L 98 - 10 7 mmol/L [facility] CO2 [Moles/Vol] 27 mmol/L 23 - 31 mmol/L [facility] Creatinine [Mass/Vol] 0.8 mg/dL 0.57 - 1.11 mg/dL [facility] GFR/1.73 sq M.predicted (S/P/Bld) [Vol rate/Area] 72.3 mL/min - PINF [facility] Comment on above: Calculation based on the Chronic Kidney Disease Epidemiology Collaboration (CKD-EPI) equation refit without adjustment for race Glucose [Mass/Vol] 112 mg/dL 82 - 115 mg/dL [facility] Interpretation and review of laboratory results Abnormal [facility] Potassium [Moles/Vol] 4.2 mmol/L 3.5 - 5.1 mmol/L [facility] Comment on above: Plasma potassium gustavo ues may be up to 0.5 mmol/L lower than serum values. Protein [Mass/Vol] 6.7 g/dL 6.4 - 8.3 g/dL [facility] Sodium [Moles/Vol] 137 mmol/L 136 - 145 mmol/L [facility] Urea nitrogen [Mass/Vol] 24 mg/dL High 9 - 23 mg/dL [facility] Progress Noteon 08-10-2024 Progress Note Nutrition Assessment Type and Reason for Visit: Reassess Nutrition Recommendations/Plan: Continue diet as ordered Adult diet Regular -Hog Ringer ordering meals -notified diet office of pt [...] muscle mass loss Fluid Accumulation: (moderate) Extremities Medicine Tech Strength: Not Performed Nutrition Assessment: 83 y.o [...] On: Kcal/kg Weight Used for Energy Requirements: [place] Weight for Energy Calculation (kg): 45 kg Total Energy Requirements (kcals/day): [id number] (25-30 kcal/kg IBW) Weight Used for Protein Requirements: [place] Weight in Kg Used for Protein Requirements: [...] lb) (11/11/23) % Weight Change (Calculated): 11.7 [place] Body Weight (lbs) (Calculated): 100 lbs [place] Body Weight (Kg) (Calculated): 45 kg % [place] Body Weight (Calculated): 220 % BMI (kg/m2) [...] Continue current diet Kamilah Rodriguez RD Contact: *[phone] or via Secure Chat [facility] Progress Note [facility] Wound Care CONSULT Note Krish Peralta AGE: 83 y.o. GENDER: female : 1940 Subjective: HISTORY of PRESENT ILLNESS HPI Krish Peralta is a 83 y.o. female who presents for a wound consult. HPI: Ms. Peralta is a 83 y.o. female with past medical history significant for COPD. Patient presented to the emergency room from [facility] facility for shortness of breath. Patient admitted [...] and water, apply ET mix then leave REGULATORY AFFAIRS SPEC TID and PRN - Reposition q2hrs - Incontinent checks q2hrs - Waffle cushion while in chair Nutritional support Wound Care to follow Recommend to follow up at [facility] wound care center after hospital discharge. [...] furosemide ([place] (more content not included)... Normal [facility] Progress Note [facility] Pulmonary Medicine [address] [place] [address] [id number] Patient - Krihs Peralta, Age - 83 y.o. - 1940 Room Number - B2-255/B2-255 A Consulting - Helen Wan DO Primary Care Physician - No primary care provider [facility] file[id number] Date of Admission - 08/03/2024 4:21 PM [...] cephalexin tolerating well Darrick Marcum [facility] [1] amLODIPine, 5 mg, Oral, q24h cephalexin, 1,000 mg, Oral, q8h enoxaparin, 30 mg, SubCUTAneous, 2 times per day escita (more content not included)... Normal [facility] Progress Note PHYSICAL THERAPY [facility] Treatment Note Name/MRN: Krish Peralta ([id number]) Date of : 1940 Age: 83 y.o. Room[facility]Bed: [facility] A Visit #: 4 out of 8 (visits added by PT due to continued need for acute skilled PT) Discharge Recommendation: Halfway Facility Equipment Needed: No Assessment Pt demos [...] Raw Score (No Stairs) : 15 [facility] Score: Walked 25 ft or more [...] End: 08/11/24 Resolve (more content not included)... [facility] 30on 08-09-2024 Problem: Knowledge Deficit Goal: Patient/family/caregi [...] Interventions Goal: Promote nutritional intake Outcome: Progressing [facility] 30 Problem: Knowledge Deficit Goal: Patient/family/caregi krysta [...] Olmos RN Outcome: Progressing 08/09/2024 015 by Sohpy Olmos RN Outcome: Progressing Normal [facility] 30 Problem: Knowledge Deficit Goal: Patient/family/caregi [...] Goal: Promote nutritional intake Outcome: Progressing Normal [facility] [id number] 08-09-2024 [id number] Sent updated notes t o return back to [facility] via [facility] per TCC request. Await review and response regarding ability to accept. TCC notified. [facility] CBC W Auto Differential pane l (Bld)on 08-09-2024 Basophils (Bld) [#/Vol] 0 10*3/uL 0.0 - 0.2 10*3/uL [facility] Basophils/100 WBC (Bld) 0.2 % 0.0 - 2.0 % [facility] Eosinophils (Bld) [#/Vol] 0 10*3/uL 0.0 - 0.5 10*3/uL [facility] Eosinophils/100 WBC (Bld) 0 % 0.0 - 6.0 % [facility] Erythrocyte distribution width (RBC) [Ratio] 13.6 % 11.5 - 15.0 % [facility] Hematocrit (Bld) [Volume fraction] 43 % 35.0 - 47.0 % [facility] Hemoglobin (Bld) [Mass/Vol] 14.1 g/dL 11.7 - 16.0 g/dL [facility] Immature granulocytes (Bld) [#/Vol] 0.2 10*3/uL High NINF - 0.1 10*3/uL [facility] Immature granulocytes/100 WBC (Bld) 1.8 % 0.0 - 2.0 % [facility] Interpretation and review of laboratory results Abnormal [facility] Lymphocytes (Bld) [#/Vol] 1 10*3/uL 1.0 - 4.3 10*3/uL [facility] Lymphocytes/100 WBC (Bld) 10.9 % Low 15.0 - 45.0 % [facility] MCH (RBC) [Entitic mass] 29 pg 26. 0 - 34.0 pg [facility] MCHC (RBC) [Mass/Vol] 32.8 % 30.5 - 36.0 % [facility] MCV (RBC) [Entitic vol] 88.3 fL 77.0 - 99.0 fL [facility] Monocytes (Bld) [#/Vol] 1 10*3/uL High 0.0 - 0.9 10*3/uL [facility] Monocytes/100 WBC (Bld) 11.1 % 5.0 - 13.0 % [facility] Neutrophils (Bld) [#/Vol] 7 10*3/uL 1.8 - 7.5 10*3/uL [facility] Neutrophils/100 WBC (Bld) 76 % 38.0 - 82.0 % [facility] Nucleated RBC/100 WBC (Bld) [Ratio] 0 % [facility] Platelet mean volume (Bld) [Entitic vol] 9.5 fL 9.0 - 12.7 fL [facility] Platelets (Bld) [#/Vol] 146 10*3/uL 140 - 440 10*3/uL [facility] RBC (Bld) [#/Vol] 4.87 10*6/uL 3.80 - 5.2 0 10*6/uL [facility] WBC (Bld) [#/Vol] 9.3 10*3/uL 3.6 - 10.7 10*3/uL [facility] CBC WITH AUTO DIFFERENTIALon 08-09-2024 Basophils (Bld) [#/Vol] 0.0 10*3/uL Normal 0.0-0.2 [facility] Comment on above: Performed By: #### L [id number] ####Blood Tester: JOHAN BHANDARI ([id number])[facility] (SB[facility])[address] [place] [address] Basophils/100 WBC (Bld) 0.2 % Normal 0.0-2.0 [facility] Comment on above: Performed By: #### L [id number] ####Blood Tester: JOHAN BHANDARI ([id number])[facility] [place] ([facility])[address] Eosinophils (Bld) [#/Vol] 0.0 10*3/uL Normal 0.0-0.5 [facility] Comment on above: Performed By: #### L [id number] ####Blood Tester: JOHAN WATTSCANDY ([id number])[facility] [place] ([facility])[address] Eosinophils/100 WBC (Bld) 0.0 % Normal 0.0-6.0 [facility] Comment on above: Performed By: #### L [id number] ####Blood Tester: JOHAN WATTSCANDY ([id number])[facility] [place] [facility] Erythrocyte distribution width (RBC) [Ratio] 13.6 % Normal 11.5-15.0 [facility] Comment on above: Performed By: #### L [id number] ####Blood Tester: JOHAN BHANDARI ([id number])[facility] [place] [facility] [place] [address] Hematocrit (Bld) [Volume fraction] 43.0 % Normal 35.0-47.0 [facility] Comment on above: Performed By: #### L [id number] ####Blood Tester: JOHAN WATTSCANDY ([id number])[facility] [place] ([facility])[address] [place] [address] Hemoglobin (Bld) [Mass/Vol] 14.1 g/dL Normal 11.7-16.0 [facility] Comment on above: Performed By: #### L [id number] ####Blood Tester: JOHAN BHANDARI ([id number])[facility] [place] ([facility])[address] IMMATURE GRANS % 1.8 % Normal 0.0-2.0 [facility] Comment on above: Performed By: #### L [id number] ####Blood Tester: JOHAN ALEGRIAAllanCANDY ([id number])[facility] ([facility])[address] IMMATURE GRANS ABSOLUTE 0.2 10*3/uL High <0.1 [facility] Comment on above: Performed By: #### L [id number] ####Blood Tester: JOHAN WATTSCANDY ([id number])[facility] ([facility])[address] Lymphocytes (Bld) [#/Vol] 1.0 10*3/uL Normal 1.0-4.3 [facility] Comment on above: Performed By: #### L [id number] ####Blood Tester: JOHAN ALEGRIAJOHNNY ([id number])[facility] Lymphocytes/100 WBC (Bld) 10.9 % Low 15.0-45.0 [facility] Comment on above: Performed By: #### L [id number] ####Blood Tester: JOHAN WATTSCANDY ([id number])[facility] MCH (RBC) [Entitic mass] 29.0 pg Normal 26.0-34.0 [facility] Comment on above: Performed By: #### L [id number] ####Blood Tester: JOHAN WATTSCANDY ([id number])[facility])[address] MCHC 32.8 % Normal 30.5-36.0 [facility] Comment on above: Performed By: #### L [id number] ####Blood Tester: JOHAN WATTSCANDY ([id number])[facility] ([facility])[address] MCV (RBC) [Entitic vol] 88.3 fL Normal 77.0-99.0 [facility] Comment on above: Performed By: #### L [id number] ####Blood Tester: JOHAN BHANDARI ([id number])[facility] [place] ([facility])[address] Monocytes (Bld) [#/Vol] 1.0 10*3/uL High 0.0-0.9 [facility] Comment on above: Performed By: #### L [id number] ####Blood Tester: JOHAN BHANDARI ([id number])[facility] [place] ([facility])[address] Monocytes/100 WBC (Bld) 11.1 % Normal 5.0-13.0 [facility] Comment on above: Performed By: #### L [id number] ####Blood Tester: JOHAN BHANDARI ([id number])[facility] [place] ([facility])[address] NEUTROPHILS ABSOLUTE 7.0 10*3/uL Normal 1.8-7.5 [facility] Comment on above: Performed By: #### L [id number] ####Blood Tester: JOHAN BHANDARI ([id number])[facility] [place] ([facility])[address] Neutrophils/100 WBC (Bld) 76.0 % Normal 38.0-82.0 [facility] Comment on above: Performed By: #### L [id number] ####Blood Tester: JOHAN BHANDARI ([id number])[facility] [place] ([facility])[address] NRBC 0.0 /100 WBCs Normal 0.0-2.0 [facility] Comment on above: Performed By: #### L [id number] ####Blood Tester: JOHAN BHANDARI ([id number])[facility] [place] ([facility])[address] Platelet mean volume (Bld) [Entitic vol] 9.5 fL Normal 9.0-12.7 [facility] Comment on above: Performed By: #### L [id number] ####Blood Tester: JOHAN BHANDARI ([id number])[facility] ([facility])[address] Platelets (Bld) [#/Vol] 146 10*3/uL Normal 140-440 [facility] Comment on above: Performed By: #### L [id number] ####Blood Tester: JOHAN BHANDARI ([id number])[facility] ([facility])[address] RBC (Bld) [#/Vol] 4.87 10*6/uL Normal 3.80-5.20 [facility] Comment on above: Performed By: #### L [id number] ####Blood Tester: JOHAN BHANDARI ([id number])[facility] ([facility])[address] WBC (Bld) [#/Vol] 9.3 10*3/uL Normal 3.6-10.7 [facility] Comment on above: Performed By: #### L [id number] ####Blood Tester: JOHAN BHANDARI ([id number])[facility] ([facility])[address] COMPREHENSIVE METABOLIC PANE Alex 08-09-2024 Albumin [Mass/Vol] 2.9 g/dL Low 3.4-4.8 [facility] Comment on above: Performed By: #### L [id number] ####Blood Tester: JOHAN BHANDARI ([id number])[facility] ([facility])[address] ALP [Catalytic activity/Vol] 78 U/L Normal 40-150 [facility] Comment on above: Performed By: #### L [id number] ####Blood Tester: JOHAN BHANDARI ([id number])[facility] ([facility])[address] ALT [Catalytic activity/Vol] 6 U/L Normal <30 [facility] Comment on above: Performed By: #### L [id number] ####Blood Tester: JOHAN BHANDARI ([id number])[facility] ([facility])[address] Anion gap [Moles/Vol] 10 mmol/L Normal 3-13 [facility] Comment on above: Performed By: #### L [id number] ####Blood Tester: JOHAN BHANDARI ([id number])[facility] ([facility])[address] AST [Catalytic activity/Vol] 11 U/L Normal <34 [facility] Comment on above: Performed By: #### L [id number] ####Blood Tester: JOHAN BHANDARI ([id number])[facility] ([facility])[address] Bilirubin [Mass/Vol] 0.3 mg/dL Normal <1.2 [facility] Comment on above: Performed By: #### L [id number] ####Blood Tester: JOHAN BHANDARI ([id number])[facility] ([facility])[address] Calcium [Mass/Vol] 9.9 mg/dL Normal 8.8-10.0 [facility] Comment on above: Performed By: #### L [id number] ####Blood Tester: JOHAN BHANDARI ([id number])[facility] ([facility])[address] Chloride [Moles/Vol] 99 mmol/L Normal 98-107 [facility] Comment on above: Performed By: #### L [id number] ####Blood Tester: JOHAN BHANDARI ([id number])[facility] ([facility])[address] CO2 [Moles/Vol] 29 mmol/L Normal 23-31 [facility] Comment on above: Performed By: #### L [id number] ####Blood Tester: JOHAN BHANDARI ([id number])[facility] ([facility])[address] Creatinine [Mass/Vol] 0.83 mg/dL Normal 0.57-1.11 [facility] Comment on above: Performed By: #### L [id number] ####Blood Tester: JOHAN BHANDARI ([id number])[facility] ([facility])[address] [place] [address] [place] GLOMERULAR FILTRATION RATE ML/MIN/1.73 SQ M.PREDICTED 69.2 mL/min/1.73m*2 Normal >60.0 [facility] Comment on above: Result Comment: Calc ulation based on the Chronic Kidney Disease Epidemiology Collaboration (CKD-EPI) equation refit without adjustment for race Performed By: #### L [id number] ####Blood Tester: JOHAN BHANDARI ([id number])[facility] ([facility])[address] Glucose [Mass/Vol] 118 mg/dL High 82-115 [facility] Comment on above: Performed By: #### L [id number] ####Blood Tester: JOHAN BHANDARI ([id number])[facility] (HL[facility])[address] Potassium [Moles/Vol] 4.5 mmol/L Normal 3.5-5.1 [facility] Comment on above: Result Comment: [facility] potassium values may be up to 0.5 mmol/L lower than serum values. Performed By: #### L [id number] ####Blood Tester: JOHAN BHANDARI ([id number])[facility] ([facility])[address] [place] [address] [place] Protein [Mass/Vol] 7.3 g/dL Normal 6.4-8.3 [facility] Comment on above: Performed By: #### L [id number] ####Blood Tester: JOHAN BHANDARI ([id number])[facility] ([facility])[address] [place] [address] [place] Sodium [Moles/Vol] 138 mmol/L Normal 136-145 [facility] Comment on above: Performed By: #### L [id number] ####Blood Tester: JOHAN ALEGRIAAllanCANDY ([id number])[facility] ([facility])[address] Urea nitrogen [Mass/Vol] 24 mg/dL High 9-23 [facility] Comment on above: Performed By: #### L [id number] ####Blood Tester: JOHAN ALEGRIAAllanCANDY ([id number])[facility] ([facility])[address] Comprehensive metabolic 1998 panelon 08-09-2024 Albumin [Mass/Vol] 2.9 g/dL Low 3.4 - 4.8 g/dL [facility] ALP [Catalytic activity/Vol] 78 U/L 40 - 150 U/L [facility] ALT [Catalytic activity/Vol] 6 U/L NINF - 30 U/L [facility] Anion gap [Moles/Vol] 10 mmol/L 3 - 13 mmol/L [facility] AST [Catalytic activity/Vol] 11 U/L NINF - 34 U/L [facility] Bilirubin [Mass/Vol] 0.3 mg/dL NINF - 1.2 mg/dL [facility] Calcium [Mass/Vol] 9.9 mg/dL 8.8 - 10. 0 mg/dL [facility] Chloride [Moles/Vol] 99 mmol/L 98 - 10 7 mmol/L [facility] CO2 [Moles/Vol] 29 mmol/L 23 - 31 mmol/L [facility] Creatinine [Mass/Vol] 0.83 mg/dL 0.57 - 1.11 mg/dL [facility] GFR/1.73 sq M.predicted (S/P/Bld) [Vol rate/Area] 69.2 mL/min - PINF [facility] Comment on above: Calculation based on the Chronic Kidney Disease Epidemiology Collaboration (CKD-EPI) equation refit without adjustment for race Glucose [Mass/Vol] 118 mg/dL High 82 - 115 mg/dL [facility] Interpretation and review of laboratory results Abnormal [facility] Potassium [Moles/Vol] 4.5 mmol/L 3.5 - 5.1 mmol/L [facility] Comment on above: Plasma potassium gustavo ues may be up to 0.5 mmol/L lower than serum values. Protein [Mass/Vol] 7.3 g/dL 6.4 - 8.3 g/dL [facility] Sodium [Moles/Vol] 138 mmol/L 136 - 145 mmol/L [facility] Urea nitrogen [Mass/Vol] 24 mg/dL High 9 - 23 mg/dL [facility] Progress Noteon 08-09-2024 Progress Note [facility] Pulmonary Medicine [address] [place] [address] Patient - Krish Peralta, Age - 83 y.o. - 1940 Room Number - B2-255/B2-255 A Consulting - Gee Givens MD Primary Care Physician - No primary care provider on file. [id number] Date of Admission - 08/03/2024 4:21 PM [...] on dry side Darrick Marcum [facility] [1] amLODIPine, 5 mg, Oral, q24h cefTRIAXone, 1,000 mg, IntraVENous, q24h enoxaparin, 30 mg, SubCUTAneous, 2 times per day escitalo (more content not included)... Normal [facility] Progress Note PHYSICAL THERAPY [facility] Treatment Note Name/MRN: Krish Peralta ([id number]) Date of : 1940 Age: 83 y.o. Room/Bed: B2-255/B2-255 A Visit #: 3 out of 5 Discharge Recommendation: Halfway Facility Equipment Needed: No Assessment Pt continues [...] Minutes (x1 ther ex) Clary Wilson PTA [facility] 30on 08-08-2024 30 Problem: Knowledge Deficit Goal: Patient/family/caregi krysta demonstrates understanding of disease process, treatment plan, medications, and discharge instructions Outcome: Progressing Problem: Potential for Compromised Skin Integrity Goal: Skin Integrity is Maintained or Improved Outcome: Progressing Problem: Urinary Incontinence Goal: Perineal skin integrity is maintained or improved Outcome: Progressing Problem: Problem Interventions Goal: Promote nutritional intake Outcome: Progressing [facility] 30 Problem: Knowledge Deficit Goal: Patient/family/caregi krysta [...] by Sophy Olmos RN Outcome: Progressing Normal [facility] 30 Problem: Knowledge Deficit Goal: Patient/family/caregi [...] Goal: Promote nutritional intake Outcome: Progressing Normal [facility] CBC W Auto Differential pane l (Bld)on 08-08-2024 Basophils (Bld) [#/Vol] 0 10*3/uL 0.0 - 0.2 10*3/uL [facility] Basophils/100 WBC (Bld) 0.3 % 0.0 - 2.0 % [facility] Eosinophils (Bld) [#/Vol] 0 10*3/uL 0.0 - 0.5 10*3/uL [facility] Eosinophils/100 WBC (Bld) 0 % 0.0 - 6.0 % [facility] Erythrocyte distribution width (RBC) [Ratio] 13.7 % 11.5 - 15.0 % [facility] Hematocrit (Bld) [Volume fraction] 41.9 % 35.0 - 47.0 % [facility] Hemoglobin (Bld) [Mass/Vol] 13.6 g/dL 11.7 - 16.0 g/dL [facility] Immature granulocytes (Bld) [#/Vol] 0.2 10*3/uL High NINF - 0.1 10*3/uL [facility] Immature granulocytes/100 WBC (Bld) 2.1 % High 0.0 - 2.0 % [facility] Interpretation and review of laboratory results Abnormal [facility] IPF 1 [facility] Lymphocytes (Bld) [#/Vol] 0.8 10*3/uL Low 1.0 - 4.3 10*3/uL [facility] Lymphocytes/100 WBC (Bld) 11.5 % Low 15.0 - 45.0 % [facility] MCH (RBC) [Entitic mass] 28.8 pg 26. 0 - 34.0 pg [facility] MCHC (RBC) [Mass/Vol] 32.5 % 30.5 - 36.0 % [facility] MCV (RBC) [Entitic vol] 88.6 fL 77.0 - 99.0 fL [facility] Monocytes (Bld) [#/Vol] 0.6 10*3/uL 0.0 - 0.9 10*3/uL [facility] Monocytes/100 WBC (Bld) 8 % 5.0 - 13.0 % [facility] Neutrophils (Bld) [#/Vol] 5.7 10*3/uL 1.8 - 7.5 10*3/uL [facility] Neutrophils/100 WBC (Bld) 78.1 % 38.0 - 82.0 % [facility] Nucleated RBC/100 WBC (Bld) [Ratio] 0 % [facility] Platelet mean volume (Bld) [Entitic vol] 9.6 fL 9.0 - 12.7 fL [facility] Platelets (Bld) [#/Vol] 124 10*3/uL Low 140 - 440 10*3/uL [facility] RBC (Bld) [#/Vol] 4.73 10*6/uL 3.80 - 5.2 0 10*6/uL [facility] WBC (Bld) [#/Vol] 7.3 10*3/uL 3.6 - 10.7 10*3/uL [facility] CBC WITH AUTO DIFFERENTIALon 08-08-2024 Basophils (Bld) [#/Vol] 0.0 10*3/uL Normal 0.0-0.2 [facility] Comment on above: Performed By: #### L [id number] ####Blood Tester: JOHAN BHANDARI ([id number])[facility] (SBHLAB)[address] Basophils/100 WBC (Bld) 0.3 % Normal 0.0-2.0 [facility] Comment on above: Performed By: #### L [id number] ####Blood Tester: JOHAN BHANDARI ([id number])[facility] (SBHLAB)[address] Eosinophils (Bld) [#/Vol] 0.0 10*3/uL Normal 0.0-0.5 [facility] Comment on above: Performed By: #### L [id number] ####Blood Tester: JOHAN BHANDARI ([id number])[facility] [place] [facility] [place] [address] Eosinophils/100 WBC (Bld) 0.0 % Normal 0.0-6.0 [facility] Comment on above: Performed By: #### L [id number] ####Blood Tester: JOHAN BHANDARI ([id number])[facility] [place] ([facility])[address] [place] [address] Erythrocyte distribution width (RBC) [Ratio] 13.7 % Normal 11.5-15.0 [facility] Comment on above: Performed By: #### L [id number] ####Blood Tester: JOHAN WATTSCANDY ([id number])[facility] ([facility])[address] [place] [address] Hematocrit (Bld) [Volume fraction] 41.9 % Normal 35.0-47.0 [facility] Comment on above: Performed By: #### L [id number] ####Blood Tester: JOHAN BHANDARI ([id number])[facility] ([facility])[address] [place] [address] Hemoglobin (Bld) [Mass/Vol] 13.6 g/dL Normal 11.7-16.0 [facility] Comment on above: Performed By: #### L [id number] ####Blood Tester: JOHAN BHANDARI ([id number])[facility] [place] [address] IMMATURE GRANS % 2.1 % High 0.0-2.0 [facility] Comment on above: Performed By: #### L [id number] ####Blood Tester: JOHAN BHANDARI ([id number])[facility] ([facility])[address] [place] [address] IMMATURE GRANS ABSOLUTE 0.2 10*3/uL High <0.1 [facility] Comment on above: Performed By: #### L [id number] ####Blood Tester: JOHAN BHANDARI ([id number])[facility]ITALSujata ZAMBRANOIsabela (SBHLAB)[address] IPF 1 Normal [facility] Comment on above: Performed By: #### L [id number] ####Blood Tester: JOHAN BHANDARI ([id number])[facility]ITALSujata [facility] (SBHLAB)[address] Lymphocytes (Bld) [#/Vol] 0.8 10*3/uL Low 1.0-4.3 [facility] Comment on above: Performed By: #### L [id number] ####Blood Tester: JOHAN BHANDARI ([id number])[facility] (SBAB)[address] [place] [address] Lymphocytes/100 WBC (Bld) 11.5 % Low 15.0-45.0 [facility] Comment on above: Performed By: #### L [id number] ####Blood Tester: JOHAN BHANDARI ([id number])[facility]OSPITALSujata [facility] CENTERIsabela (SBHLAB)[address] [place] [address] MCH (RBC) [Entitic mass] 28.8 pg Normal 26.0-34.0 [facility] Comment on above: Performed By: #### L [id number] ####Blood Tester: JOHAN BHANDARI ([id number])[facility] (SBHLAB)[address] [place] [address] MCHC 32.5 % Normal 30.5-36.0 [facility] Comment on above: Performed By: #### L [id number] ####Blood Tester: JOHAN BHANDARI ([id number])[facility] (SBHLAB)[address] [place] [address] MCV (RBC) [Entitic vol] 88.6 fL Normal 77.0-99.0 [facility] Comment on above: Performed By: #### L [id number] ####Blood Tester: JOHAN BHANDARI ([id number])[facility] (SBHLAB)[address] Monocytes (Bld) [#/Vol] 0.6 10*3/uL Normal 0.0-0.9 [facility] Comment on above: Performed By: #### L [id number] ####Blood Tester: JOHAN BHANDARI ([id number])[facility] [place] (SBHLAB)[address] Monocytes/100 WBC (Bld) 8.0 % Normal 5.0-13.0 [facility] Comment on above: Performed By: #### L [id number] ####Blood Tester: JOHAN BHANDARI ([id number])[facility] [place] (SBHLAB)[address] [place] [address] NEUTROPHILS ABSOLUTE 5.7 10*3/uL Normal 1.8-7.5 [facility] Comment on above: Performed By: #### L [id number] ####Blood Tester: JOHAN BHANDARI ([id number])[facility] [place] (SBHLAB)[address] Neutrophils/100 WBC (Bld) 78.1 % Normal 38.0-82.0 [facility] Comment on above: Performed By: #### L [id number] ####Blood Tester: JOHAN BHANDARI ([id number])[facility] [place] (SBHLAB)[address] NRBC 0.0 /100 WBCs Normal 0.0-2.0 [facility] Comment on above: Performed By: #### L [id number] ####Blood Tester: JOHAN BHANDARI ([id number])[facility] [place] (SBHLAB)[address] Platelet mean volume (Bld) [Entitic vol] 9.6 fL Normal 9.0-12.7 [facility] Comment on above: Performed By: #### L [id number] ####Blood Tester: JOHAN BHANDARI ([id number])[facility] [place] (SBHLAB)[address] Platelets (Bld) [#/Vol] 124 10*3/uL Low 140-440 [facility] Comment on above: Performed By: #### L [id number] ####Blood Tester: JOHAN BHANDARI ([id number])[facility] [place] (SBHLAB)[address] RBC (Bld) [#/Vol] 4.73 10*6/uL Normal 3.80-5.20 [facility] Comment on above: Performed By: #### L [id number] ####Blood Tester: JOHAN BHANDARI ([id number])[facility] [place] (SBHLAB)[address] WBC (Bld) [#/Vol] 7.3 10*3/uL Normal 3.6-10.7 [facility] Comment on above: Performed By: #### L [id number] ####Blood Tester: JOHAN BHANDARI ([id number])[facility]A [facility] (SBHLAB)[address] COMPREHENSIVE METABOLIC PANE Alex 08-08-2024 Albumin [Mass/Vol] 2.9 g/dL Low 3.4-4.8 [facility] Comment on above: Performed By: #### L [id number] ####Blood Tester: JOHAN BHANDARI ([id number])[facility] [place] (SBHLAB)[address] ALP [Catalytic activity/Vol] 78 U/L Normal 40-150 [facility] Comment on above: Performed By: #### L [id number] ####Blood Tester: JOHAN BHANDARI ([id number])[facility] [place] (SBHLAB)[address] ALT [Catalytic activity/Vol] 9 U/L Normal <30 [facility] Comment on above: Performed By: #### L [id number] ####Blood Tester: JOHAN BHANDARI ([id number])[facility] (SBHLAB)[address] Anion gap [Moles/Vol] 10 mmol/L Normal 3-13 [facility] Comment on above: Performed By: #### L [id number] ####Blood Tester: JOHAN BHANDARI ([id number])[facility] [place] (SBHLAB)[address] AST [Catalytic activity/Vol] 16 U/L Normal <34 [facility] Comment on above: Performed By: #### L [id number] ####Blood Tester: JOHAN BHANDARI ([id number])[facility] [place] (SBHLAB)[address] Bilirubin [Mass/Vol] 0.3 mg/dL Normal <1.2 [facility] Comment on above: Performed By: #### L [id number] ####Blood Tester: JOHAN BHANDARI ([id number])[facility] [place] (SBHLAB)[address] Calcium [Mass/Vol] 9.8 mg/dL Normal 8.8-10.0 [facility] Comment on above: Performed By: #### L [id number] ####Blood Tester: JOHAN BHANDARI ([id number])[facility] [place] (SBHLAB)[address] Chloride [Moles/Vol] 100 mmol/L Normal 98-107 [facility] Comment on above: Performed By: #### L [id number] ####Blood Tester: JOHAN BHANDARI ([id number])[facility] [place] (SBHLAB)[address] [place] [address] [place] CO2 [Moles/Vol] 29 mmol/L Normal 23-31 [facility] Comment on above: Performed By: #### L [id number] ####Blood Tester: JOHAN BHANDARI ([id number])[facility] [place] (SBHLAB)[address] Creatinine [Mass/Vol] 0.80 mg/dL Normal 0.57-1.11 [facility] Comment on above: Performed By: #### L [id number] ####Blood Tester: JOHAN BHANDARI ([id number])[facility] ([facility])[address] [place] [address] [place] GLOMERULAR FILTRATION RATE ML/MIN/1.73 SQ M.PREDICTED 72.3 mL/min/1.73m*2 Normal >60.0 [facility] Comment on above: Result Comment: Calc ulation based on the Chronic Kidney Disease Epidemiology Collaboration (CKD-EPI) equation refit without adjustment for race Performed By: #### L [id number] ####Blood Tester: JOHAN BHANDARI ([id number])[facility] ([facility])[address] Glucose [Mass/Vol] 118 mg/dL High 82-115 [facility] Comment on above: Performed By: #### L [id number] ####Blood Tester: JOHAN BHANDARI ([id number])[facility] ([facility])[address] Potassium [Moles/Vol] 4.7 mmol/L Normal 3.5-5.1 [facility] Comment on above: Result Comment: [facility] potassium values may be up to 0.5 mmol/L lower than serum values. Performed By: #### L [id number] ####Blood Tester: JOHAN BHANDARI ([id number])[facility] ([facility])[address] Protein [Mass/Vol] 7.5 g/dL Normal 6.4-8.3 [facility] Comment on above: Performed By: #### L [id number] ####Blood Tester: JOHAN BHANDARI ([id number])[facility])[address] Sodium [Moles/Vol] 139 mmol/L Normal 136-145 [facility] Comment on above: Performed By: #### L [id number] ####Blood Tester: JOHAN BHANDARI ([id number])[facility] (SBHLAB)[address] Urea nitrogen [Mass/Vol] 21 mg/dL Normal 9-23 [facility] Comment on above: Performed By: #### L [id number] ####Blood Tester: JOHAN WATTSCANDY ([id number])[facility] (SBHLAB)[address] Comprehensive metabolic 1998 panelon 08-08-2024 Albumin [Mass/Vol] 2.9 g/dL Low 3.4 - 4.8 g/dL [facility] ALP [Catalytic activity/Vol] 78 U/L 40 - 150 U/L [facility] ALT [Catalytic activity/Vol] 9 U/L NINF - 30 U/L [facility] Anion gap [Moles/Vol] 10 mmol/L 3 - 13 mmol/L [facility] AST [Catalytic activity/Vol] 16 U/L NINF - 34 U/L [facility] Bilirubin [Mass/Vol] 0.3 mg/dL NINF - 1.2 mg/dL [facility] Calcium [Mass/Vol] 9.8 mg/dL 8.8 - 10. 0 mg/dL [facility] Chloride [Moles/Vol] 100 mmol/L 98 - 10 7 mmol/L [facility] CO2 [Moles/Vol] 29 mmol/L 23 - 31 mmol/L [facility] Creatinine [Mass/Vol] 0.8 mg/dL 0.57 - 1.11 mg/dL [facility] GFR/1.73 sq M.predicted (S/P/Bld) [Vol rate/Area] 72.3 mL/min - PINF [facility] Comment on above: Calculation based on the Chronic Kidney Disease Epidemiology Collaboration (CKD-EPI) equation refit without adjustment for race Glucose [Mass/Vol] 118 mg/dL High 82 - 115 mg/dL [facility] Interpretation and review of laboratory results Abnormal [facility] Potassium [Moles/Vol] 4.7 mmol/L 3.5 - 5.1 mmol/L [facility] Comment on above: Plasma potassium gustavo ues may be up to 0.5 mmol/L lower than serum values. Protein [Mass/Vol] 7.5 g/dL 6.4 - 8.3 g/dL [facility] Sodium [Moles/Vol] 139 mmol/L 136 - 145 mmol/L [facility] Urea nitrogen [Mass/Vol] 21 mg/dL 9 - 23 mg/dL [facility] 30on 08-07-2024 30 Problem: Knowledge Deficit Goal: Patient/family/caregi krysta demonstrates understanding of disease process, treatment plan, medications, and discharge instructions Outcome: Progressing Problem: Potential for Compromised Skin Integrity Goal: Skin Integrity is Maintained or Improved Outcome: Progressing Problem: Urinary Incontinence Goal: Perineal skin integrity is maintained or improved Outcome: Progressing Problem: Problem Interventions Goal: Promote nutritional intake Outcome: Progressing Normal [facility] 30 Problem: Knowledge Deficit Goal: [...] Goal: Promote nutritional intake Outcome: Progressing Normal [facility] CBC W Auto Differential pane l (Bld)on 08-07-2024 Basophils (Bld) [#/Vol] 0 10*3/uL 0.0 - 0.2 10*3/uL [facility] Basophils/100 WBC (Bld) 0.1 % 0.0 - 2.0 % [facility] Eosinophils (Bld) [#/Vol] 0 10*3/uL 0.0 - 0.5 10*3/uL [facility] Eosinophils/100 WBC (Bld) 0.2 % 0.0 - 6.0 % [facility] Erythrocyte distribution width (RBC) [Ratio] 13.5 % 11.5 - 15.0 % [facility] Hematocrit (Bld) [Volume fraction] 42.1 % 35.0 - 47.0 % [facility] Hemoglobin (Bld) [Mass/Vol] 14.1 g/dL 11.7 - 16.0 g/dL [facility] Immature granulocytes (Bld) [#/Vol] 0.2 10*3/uL High NINF - 0.1 10*3/uL [facility] Immature granulocytes/100 WBC (Bld) 1.5 % 0.0 - 2.0 % [facility] Interpretation and review of laboratory results Abnormal [facility] IPF 1 [facility] Lymphocytes (Bld) [#/Vol] 1.5 10*3/uL 1.0 - 4.3 10*3/uL [facility] Lymphocytes/100 WBC (Bld) 12.3 % Low 15.0 - 45.0 % [facility] MCH (RBC) [Entitic mass] 29 pg 26. 0 - 34.0 pg [facility] MCHC (RBC) [Mass/Vol] 33.5 % 30.5 - 36.0 % [facility] MCV (RBC) [Entitic vol] 86.6 fL 77.0 - 99.0 fL [facility] Monocytes (Bld) [#/Vol] 1.3 10*3/uL High 0.0 - 0.9 10*3/uL [facility] Monocytes/100 WBC (Bld) 10.8 % 5.0 - 13.0 % [facility] Neutrophils (Bld) [#/Vol] 9.1 10*3/uL High 1.8 - 7.5 10*3/uL [facility] Neutrophils/100 WBC (Bld) 75.1 % 38.0 - 82.0 % [facility] Nucleated RBC/100 WBC (Bld) [Ratio] 0 % [facility] Platelet mean volume (Bld) [Entitic vol] 9.6 fL 9.0 - 12.7 fL [facility] Platelets (Bld) [#/Vol] 153 10*3/uL 140 - 440 10*3/uL [facility] RBC (Bld) [#/Vol] 4.86 10*6/uL 3.80 - 5.2 0 10*6/uL [facility] WBC (Bld) [#/Vol] 12.1 10*3/uL High 3.6 - 10.7 10*3/uL [facility] CBC WITH AUTO DIFFERENTIALon 08-07-2024 Basophils (Bld) [#/Vol] 0.0 10*3/uL Normal 0.0-0.2 [facility] Comment on above: Performed By: #### L [id number] ####Blood Tester: JOHAN BHANDARI ([id number])[facility] (SBHLAB)[address] [place] [address] Basophils/100 WBC (Bld) 0.1 % Normal 0.0-2.0 [facility] Comment on above: Performed By: #### L [id number] ####Blood Tester: JOHAN BHANDARI ([id number])[facility] [place] (SBHLAB)[address] Eosinophils (Bld) [#/Vol] 0.0 10*3/uL Normal 0.0-0.5 [facility] Comment on above: Performed By: #### L [id number] ####Blood Tester: JOHAN BHANDARI ([id number])[facility] [place] (SB[facility]AB)[address] Eosinophils/100 WBC (Bld) 0.2 % Normal 0.0-6.0 [facility] Comment on above: Performed By: #### L [id number] ####Blood Tester: JOHAN BHANDARI ([id number])[facility] [place] (SBHLAB)[address] Erythrocyte distribution width (RBC) [Ratio] 13.5 % Normal 11.5-15.0 [facility] Comment on above: Performed By: #### L [id number] ####Blood Tester: JOHAN BHANDARI ([id number])[facility] [place] (SBHLAB)[address] [place] [address] Hematocrit (Bld) [Volume fraction] 42.1 % Normal 35.0-47.0 [facility] Comment on above: Performed By: #### L [id number] ####Blood Tester: JOHAN BHANDARI ([id number])[facility] [place] (SB[facility])[address] Hemoglobin (Bld) [Mass/Vol] 14.1 g/dL Normal 11.7-16.0 [facility] Comment on above: Performed By: #### L [id number] ####Blood Tester: JOHAN BHANDARI ([id number])[facility] [place] (SB[facility]AB)[address] IMMATURE GRANS % 1.5 % Normal 0.0-2.0 [facility] Comment on above: Performed By: #### L [id number] ####Blood Tester: JOHAN BHANDARI ([id number])[facility] [place] (SB[facility])[address] IMMATURE GRANS ABSOLUTE 0.2 10*3/uL High <0.1 [facility] Comment on above: Performed By: #### L [id number] ####Blood Tester: JOHAN BHANDARI ([id number])[facility] [place] (SB[facility])[address] IPF 1 Normal [facility] Comment on above: Performed By: #### L [id number] ####Blood Tester: JOHAN BHANDARI ([id number])[facility] [place] (SB[facility]AB)[address] Lymphocytes (Bld) [#/Vol] 1.5 10*3/uL Normal 1.0-4.3 [facility] Comment on above: Performed By: #### L [id number] ####Blood Tester: JOHAN BHANDARI ([id number])[facility] [place] (SB[facility])[address] Lymphocytes/100 WBC (Bld) 12.3 % Low 15.0-45.0 [facility] Comment on above: Performed By: #### L [id number] ####Blood Tester: JOHAN BHANDARI ([id number])[facility] [place] ([facility])[address] MCH (RBC) [Entitic mass] 29.0 pg Normal 26.0-34.0 [facility] Comment on above: Performed By: #### L [id number] ####Blood Tester: JOHAN BHANDARI ([id number])[facility] [place] ([facility])[address] MCHC 33.5 % Normal 30.5-36.0 [facility] Comment on above: Performed By: #### L [id number] ####Blood Tester: JOHAN BHANDARI ([id number])[facility] [place] (SBHLAB)[address] MCV (RBC) [Entitic vol] 86.6 fL Normal 77.0-99.0 [facility] Comment on above: Performed By: #### L [id number] ####Blood Tester: JOHAN WATTSCANDY ([id number])[facility] [place] (SBHLAB)[address] Monocytes (Bld) [#/Vol] 1.3 10*3/uL High 0.0-0.9 [facility] Comment on above: Performed By: #### L [id number] ####Blood Tester: JOHAN WATTSCANDY ([id number])[facility] [place] ([facility])[address] Monocytes/100 WBC (Bld) 10.8 % Normal 5.0-13.0 [facility] Comment on above: Performed By: #### L [id number] ####Blood Tester: JOHAN WATTSCANDY ([id number])[facility] [place] ([facility])[address] NEUTROPHILS ABSOLUTE 9.1 10*3/uL High 1.8-7.5 [facility] Comment on above: Performed By: #### L [id number] ####Blood Tester: JOHAN BHANDARI ([id number])[facility] [place] ([facility])[address] Neutrophils/100 WBC (Bld) 75.1 % Normal 38.0-82.0 [facility] Comment on above: Performed By: #### L [id number] ####Blood Tester: JOHAN WATTSCANDY ([id number])[facility] [place] (SB[facility])[address] [place] [address] [place] NRBC 0.0 /100 WBCs Normal 0.0-2.0 [facility] Comment on above: Performed By: #### L [id number] ####Blood Tester: JOHAN BHANDARI ([id number])[facility] (SB[facility]AB)[address] Platelet mean volume (Bld) [Entitic vol] 9.6 fL Normal 9.0-12.7 [facility] Comment on above: Performed By: #### L [id number] ####Blood Tester: JOHAN BHANDARI ([id number])[facility] [place] ([facility])[address] Platelets (Bld) [#/Vol] 153 10*3/uL Normal 140-440 [facility] Comment on above: Performed By: #### L [id number] ####Blood Tester: JOHAN BHANDARI ([id number])[facility] [place] ([facility])[address] RBC (Bld) [#/Vol] 4.86 10*6/uL Normal 3.80-5.20 [facility] Comment on above: Performed By: #### L [id number] ####Blood Tester: JOHAN BHANDARI ([id number])[facility] [place] ([facility])[address] WBC (Bld) [#/Vol] 12.1 10*3/uL High 3.6-10.7 [facility] Comment on above: Performed By: #### L [id number] ####Blood Tester: JOHAN BHANDARI ([id number])[facility] [place] ([facility])[address] COMPREHENSIVE METABOLIC PANE Alex 08-07-2024 Albumin [Mass/Vol] 2.8 g/dL Low 3.4-4.8 [facility] Comment on above: Performed By: #### L [id number] ####Blood Tester: JOHAN BHANDARI ([id number])[facility] [place] ([facility])[address] ALP [Catalytic activity/Vol] 78 U/L Normal 40-150 [facility] Comment on above: Performed By: #### L [id number] ####Blood Tester: JOHAN BHANDARI ([id number])[facility] ([facility])[address] ALT [Catalytic activity/Vol] 10 U/L Normal <30 [facility] Comment on above: Performed By: #### L [id number] ####Blood Tester: JOHAN BHANDARI ([id number])[facility] [place] ([facility])[address] Anion gap [Moles/Vol] 11 mmol/L Normal 3-13 [facility] Comment on above: Performed By: #### L [id number] ####Blood Tester: JOHAN BHANDARI ([id number])[facility] (HLAB)[address] AST [Catalytic activity/Vol] 22 U/L Normal <34 [facility] Comment on above: Performed By: #### L [id number] ####Blood Tester: JOHAN BHANDARI ([id number])[facility] (SB[facility])[address] Bilirubin [Mass/Vol] 0.4 mg/dL Normal <1.2 [facility] Comment on above: Performed By: #### L [id number] ####Blood Tester: JOHAN BHANDARI ([id number])[facility] ([facility])[address] Calcium [Mass/Vol] 9.8 mg/dL Normal 8.8-10.0 [facility] Comment on above: Performed By: #### L [id number] ####Blood Tester: JOHAN BHANDARI ([id number])[facility] (SB[facility])[address] Chloride [Moles/Vol] 101 mmol/L Normal 98-107 [facility] Comment on above: Performed By: #### L [id number] ####Blood Tester: JOHAN BHANDARI ([id number])[facility] [place] (SBHLAB)[address] CO2 [Moles/Vol] 26 mmol/L Normal 23-31 [facility] Comment on above: Performed By: #### L [id number] ####Blood Tester: JOHAN BHANDARI ([id number])[facility] (SBHLAB)[address] Creatinine [Mass/Vol] 0.79 mg/dL Normal 0.57-1.11 [facility] Comment on above: Performed By: #### L [id number] ####Blood Tester: JOHAN BHANDARI ([id number])[facility] (SB[facility]AB)[address] GLOMERULAR FILTRATION RATE ML/MIN/1.73 SQ M.PREDICTED 73.4 mL/min/1.73m*2 Normal >60.0 [facility] Comment on above: Result Comment: Calc ulation based on the Chronic Kidney Disease Epidemiology Collaboration (CKD-EPI) equation refit without adjustment for race Performed By: #### L [id number] ####Blood Tester: JOHAN BHANDARI ([id number])[facility] (SBHLAB)[address] [place] [address] Glucose [Mass/Vol] 74 mg/dL Low 82-115 [facility] Comment on above: Performed By: #### L [id number] ####Blood Tester: JOHAN BHANDARI ([id number])[facility] (SB[facility]AB)[address] Potassium [Moles/Vol] 4.4 mmol/L Normal 3.5-5.1 [facility] Comment on above: Result Comment: [facility] potassium values may be up to 0.5 mmol/L lower than serum values. Performed By: #### L [id number] ####Blood Tester: JOHAN BHANDARI ([id number])[facility] (SBHLAB)[address] Protein [Mass/Vol] 7.2 g/dL Normal 6.4-8.3 [facility] Comment on above: Performed By: #### L [id number] ####Blood Tester: JOHAN BHANDARI ([id number])[facility]OS[facility]ITALSujata MIRANDA (SBHLAB)[address] Sodium [Moles/Vol] 138 mmol/L Normal 136-145 [facility] Comment on above: Performed By: #### L [id number] ####Blood Tester: JOHAN DILLONCER ([id number])[facility]ITALSujata [address] (SBHLAB)[address] Urea nitrogen [Mass/Vol] 28 mg/dL High 9-23 [facility] Comment on above: Performed By: #### L [id number] ####Blood Tester: JOHANNICKY WATTSCANDY ([id number])[facility]ITALSujata [facility] (SBHLAB)[address] [place] [address] Comprehensive metabolic 1998 panelon 08-07-2024 Albumin [Mass/Vol] 2.8 g/dL Low 3.4 - 4.8 g/dL [facility] ALP [Catalytic activity/Vol] 78 U/L 40 - 150 U/L [facility] ALT [Catalytic activity/Vol] 10 U/L [facility] - [facility] U/L [facility] Anion gap [Moles/Vol] 11 mmol/L 3 - 13 mmol/L [facility] AST [Catalytic activity/Vol] 22 U/L [facility] - 34 U/L [facility] Bilirubin [Mass/Vol] 0.4 mg/dL [facility] - 1.2 mg/dL [facility] Calcium [Mass/Vol] 9.8 mg/dL 8.8 - 10. 0 mg/dL [facility] Chloride [Moles/Vol] 101 mmol/L 98 - 10 7 mmol/L [facility] CO2 [Moles/Vol] 26 mmol/L 23 - 31 mmol/L [facility] Creatinine [Mass/Vol] 0.79 mg/dL 0.57 - 1.11 mg/dL [facility] GFR/1.73 sq M.predicted (S/P/Bld) [Vol rate/Area] 73.4 mL/min - PINF [facility] Comment on above: Calculation based on the Chronic Kidney Disease Epidemiology Collaboration (CKD-EPI) equation refit without adjustment for race Glucose [Mass/Vol] 74 mg/dL Low 82 - 115 mg/dL [facility] Interpretation and review of laboratory results Abnormal [facility] Potassium [Moles/Vol] 4.4 mmol/L 3.5 - 5.1 mmol/L [facility] Comment on above: Plasma potassium gustavo ues may be up to 0.5 mmol/L lower than serum values. Protein [Mass/Vol] 7.2 g/dL 6.4 - 8.3 g/dL [facility] Sodium [Moles/Vol] 138 mmol/L 136 - 145 mmol/L [facility] Urea nitrogen [Mass/Vol] 28 mg/dL High 9 - 23 mg/dL [facility] Progress Noteon 08-07-2024 Progress Note PHYSICAL THERAPY [facility] Treatment Note Name/MRN: Krish Peralta ([id number]) Date of : 1940 Age: 83 y.o. Room[facility]Bed: [facility] A Visit #: 2 out of 5 Discharge Recommendation: Halfway Facility Equipment Needed: No Assessment Pt seated [...] (x1 ther ex) Clary Wilson PTA Normal [facility] Bacteria identified Aer cx N om (Lower resp)Ordered By: Marianna Chapman on 08-06-2024 Beta Lactamase Negative [facility] Gram Stain Result Few Epithelial cells per low power field Abnormal [facility] Gram Stain Result Moderate Polymorphonuclear leukocytes per low power field Abnormal [facility] Gram Stain Result Positive Abnormal [facility] ealth Gram Stain Result Negative Abnormal [facility] e[facility] Interpretation and review of laboratory results Abnormal [facility] CBC W Auto Differential pane l (Bld)on 08-06-2024 Basophils (Bld) [#/Vol] 0 10*3/uL 0.0 - 0.2 10*3/uL [facility] Basophils/100 WBC (Bld) 0.1 % 0.0 - 2.0 % [facility] Eosinophils (Bld) [#/Vol] 0 10*3/uL 0.0 - 0.5 10*3/uL [facility] Eosinophils/100 WBC (Bld) 0 % 0.0 - 6.0 % [facility] Erythrocyte distribution width (RBC) [Ratio] 13.2 % 11.5 - 15.0 % [facility] Hematocrit (Bld) [Volume fraction] 39.6 % 35.0 - 47.0 % [facility] Hemoglobin (Bld) [Mass/Vol] 13 g/dL 11.7 - 16.0 g/dL [facility] Immature granulocytes (Bld) [#/Vol] 0.2 10*3/uL High NINF - 0.1 10*3/uL [facility] Immature granulocytes/100 WBC (Bld) 1.2 % 0.0 - 2.0 % [facility] Interpretation and review of laboratory results Abnormal [facility] Lymphocytes (Bld) [#/Vol] 1.1 10*3/uL 1.0 - 4.3 10*3/uL [facility] Lymphocytes/100 WBC (Bld) 8 % Low 15.0 - 45.0 % [facility] MCH (RBC) [Entitic mass] 29 pg 26. 0 - 34.0 pg [facility] MCHC (RBC) [Mass/Vol] 32.8 % 30.5 - 36.0 % [facility] MCV (RBC) [Entitic vol] 88.2 fL 77.0 - 99.0 fL [facility] Monocytes (Bld) [#/Vol] 0.8 10*3/uL 0.0 - 0.9 10*3/uL [facility] Monocytes/100 WBC (Bld) 5.4 % 5.0 - 13.0 % [facility] Neutrophils (Bld) [#/Vol] 12.1 10*3/uL High 1.8 - 7.5 10*3/uL [facility] Neutrophils/100 WBC (Bld) 85.3 % High 38.0 - 82.0 % [facility] Nucleated RBC/100 WBC (Bld) [Ratio] 0 % [facility] Platelet mean volume (Bld) [Entitic vol] 9 fL 9.0 - 12.7 fL [facility] Platelets (Bld) [#/Vol] 160 10*3/uL 140 - 440 10*3/uL [facility] RBC (Bld) [#/Vol] 4.49 10*6/uL 3.80 - 5.2 0 10*6/uL [facility] WBC (Bld) [#/Vol] 14.1 10*3/uL High 3.6 - 10.7 10*3/uL [facility] CBC WITH AUTO DIFFERENTIALon 08-06-2024 Basophils (Bld) [#/Vol] 0.0 10*3/uL Normal 0.0-0.2 [facility] Comment on above: Performed By: #### L [id number] ####Blood Tester: JOHAN BHANDARI ([id number])[facility] (SBAB)[address] Basophils/100 WBC (Bld) 0.1 % Normal 0.0-2.0 [facility] Comment on above: Performed By: #### L [id number] ####Blood Tester: JOHAN BHANDARI ([id number])[facility] (SBAB)[address] [place] [address] [place] Eosinophils (Bld) [#/Vol] 0.0 10*3/uL Normal 0.0-0.5 [facility] Comment on above: Performed By: #### L [id number] ####Blood Tester: JOHAN BHANDARI ([id number])[facility] (SBAB)[address] [place] [address] [place] Eosinophils/100 WBC (Bld) 0.0 % Normal 0.0-6.0 [facility] Comment on above: Performed By: #### L [id number] ####Blood Tester: JOHAN [id number])[facility]ITALSujata [facility] (SBHLAB)[address] Erythrocyte distribution width (RBC) [Ratio] 13.2 % Normal 11.5-15.0 [facility] Comment on above: Performed By: #### L [id number] ####Blood Tester: JOHAN BHANDARI ([id number])[facility] ([facility] Hematocrit (Bld) [Volume fraction] 39.6 % Normal 35.0-47.0 [facility] Comment on above: Performed By: #### L [id number] ####Blood Tester: JOHAN BHANDARI ([id number])[facility] ([facility])[address] [place] [address] Hemoglobin (Bld) [Mass/Vol] 13.0 g/dL Normal 11.7-16.0 [facility] Comment on above: Performed By: #### L [id number] ####Blood Tester: JOHAN BHANDARI ([id number])[facility] ([facility])[address] [place] [address] IMMATURE GRANS % 1.2 % Normal 0.0-2.0 [facility] Comment on above: Performed By: #### L [id number] ####Blood Tester: JOHAN BHANDARI ([id number])[facility] ([facility])[address] [place] [address] IMMATURE GRANS ABSOLUTE 0.2 10*3/uL High <0.1 [facility] Comment on above: Performed By: #### L [id number] ####Blood Tester: JOHAN BHANDARI ([id number])[facility] ([facility])[address] [place] [address] Lymphocytes (Bld) [#/Vol] 1.1 10*3/uL Normal 1.0-4.3 [facility] Comment on above: Performed By: #### L [id number] ####Blood Tester: JOHAN BHANDARI ([id number])[facility] (SBHLAB)[address] Lymphocytes/100 WBC (Bld) 8.0 % Low 15.0-45.0 [facility] Comment on above: Performed By: #### L [id number] ####Blood Tester: JOHAN BHANDARI ([id number])[facility] (SBHLAB)[address] MCH (RBC) [Entitic mass] 29.0 pg Normal 26.0-34.0 [facility] Comment on above: Performed By: #### L [id number] ####Blood Tester: JOHAN BHANDARI ([id number])[facility] (SBHLAB)[address] [place] [address] MCHC 32.8 % Normal 30.5-36.0 [facility] Comment on above: Performed By: #### L [id number] ####Blood Tester: JOHAN BHANDARI ([id number])[facility]ITALSujata [facility] (SBHLAB)[address] [place] [address] MCV (RBC) [Entitic vol] 88.2 fL Normal 77.0-99.0 [facility] Comment on above: Performed By: #### L [id number] ####Blood Tester: JOHAN BHANDARI ([id number])[facility]ITALSujata [facility] CENTERIsabela (SBHLAB)[address] [place] [address] Monocytes (Bld) [#/Vol] 0.8 10*3/uL Normal 0.0-0.9 [facility] Comment on above: Performed By: #### L [id number] ####Blood Tester: JOHAN BHANDARI ([id number])[facility] (SBHLAB)[address] Monocytes/100 WBC (Bld) 5.4 % Normal 5.0-13.0 [facility] Comment on above: Performed By: #### L [id number] ####Blood Tester: JOHAN BHANDARI ([id number])[facility] [place] (SBHLAB)[address] NEUTROPHILS ABSOLUTE 12.1 10*3/uL High 1.8-7.5 [facility] Comment on above: Performed By: #### L [id number] ####Blood Tester: JOHAN BHANDARI ([id number])[facility] [place] (SBHLAB)[address] Neutrophils/100 WBC (Bld) 85.3 % High 38.0-82.0 [facility] Comment on above: Performed By: #### L [id number] ####Blood Tester: JOHAN BHANDARI ([id number])[facility] [place] (SBHLAB)[address] NRBC 0.0 /100 WBCs Normal 0.0-2.0 [facility] Comment on above: Performed By: #### L [id number] ####Blood Tester: JOHAN BHANDARI ([id number])[facility] [place] (SBHLAB)[address] Platelet mean volume (Bld) [Entitic vol] 9.0 fL Normal 9.0-12.7 [facility] Comment on above: Performed By: #### L [id number] ####Blood Tester: JOHAN BHANDARI ([id number])[facility] [place] (SBHLAB)[address] [place] [address] [place] Platelets (Bld) [#/Vol] 160 10*3/uL Normal 140-440 [facility] Comment on above: Performed By: #### L [id number] ####Blood Tester: JOHAN BHANDARI ([id number])[facility] [place] (SBHLAB)[address] [place] [address] [place] RBC (Bld) [#/Vol] 4.49 10*6/uL Normal 3.80-5.20 [facility] Comment on above: Performed By: #### L [id number] ####Blood Tester: JOHAN BHANDARI ([id number])[facility] (SBHLAB)[address] WBC (Bld) [#/Vol] 14.1 10*3/uL High 3.6-10.7 [facility] Comment on above: Performed By: #### L [id number] ####Blood Tester: JOHAN BHANDARI ([id number])[facility] [place] (SBHLAB)[address] COMPREHENSIVE METABOLIC PANE Alex 08-06-2024 Albumin [Mass/Vol] 2.8 g/dL Low 3.4-4.8 [facility] Comment on above: Performed By: #### L [id number] ####Blood Tester: JOHAN BHANDARI ([id number])[facility] (SBHLAB)[address] ALP [Catalytic activity/Vol] 83 U/L Normal 40-150 [facility] Comment on above: Performed By: #### L [id number] ####Blood Tester: JOHAN BHANDARI ([id number])[facility] [place] (SBHLAB)[address] ALT [Catalytic activity/Vol] 6 U/L Normal <30 [facility] Comment on above: Performed By: #### L [id number] ####Blood Tester: JOHAN BHANDARI ([id number])[facility] [place] (SBHLAB)[address] Anion gap [Moles/Vol] 10 mmol/L Normal 3-13 [facility] Comment on above: Performed By: #### L [id number] ####Blood Tester: JOHAN BHANDARI ([id number])[facility] [place] (SBHLAB)[address] AST [Catalytic activity/Vol] 16 U/L Normal <34 [facility] Comment on above: Performed By: #### L [id number] ####Blood Tester: JOHAN BHANDARI ([id number])[facility] [place] (SBHLAB)[address] Bilirubin [Mass/Vol] 0.4 mg/dL Normal <1.2 [facility] Comment on above: Performed By: #### L [id number] ####Blood Tester: JOHAN BHANDARI ([id number])[facility]OSPITALSujata ZAMBRANON (SBHLAB)[address] Calcium [Mass/Vol] 10.3 mg/dL High 8.8-10.0 [facility] Comment on above: Performed By: #### L [id number] ####Blood Tester: JOHAN BHANDARI ([id number])[facility] (SBHLAB)[address] Chloride [Moles/Vol] 95 mmol/L Low 98-107 [facility] Comment on above: Performed By: #### L [id number] ####Blood Tester: JOHAN BHANDARI ([id number])[facility] (SBHLAB)[address] CO2 [Moles/Vol] 30 mmol/L Normal 23-31 [facility] Comment on above: Performed By: #### L [id number] ####Blood Tester: JOHAN BHANDARI ([id number])[facility]A [facility] (SBHLAB)[address] Creatinine [Mass/Vol] 0.84 mg/dL Normal 0.57-1.11 [facility] Comment on above: Performed By: #### L [id number] ####Blood Tester: JOHAN BHANDARI ([id number])[facility] (SBHLAB)[address] [place] [address] [place] GLOMERULAR FILTRATION RATE ML/MIN/1.73 SQ M.PREDICTED 68.2 mL/min/1.73m*2 Normal >60.0 [facility] Comment on above: Result Comment: Calc ulation based on the Chronic Kidney Disease Epidemiology Collaboration (CKD-EPI) equation refit without adjustment for race Performed By: #### L [id number] ####Blood Tester: JOHAN BHANDARI ([id number])[facility]ITALSujata [place] (SBHLAB)[address] Glucose [Mass/Vol] 123 mg/dL High 82-115 [facility] Comment on above: Performed By: #### L [id number] ####Blood Tester: JOHAN BHANDARI ([id number])[facility]ITALSujata [place] (SBHLAB)[address] Potassium [Moles/Vol] 3.9 mmol/L Normal 3.5-5.1 [facility] Comment on above: Result Comment: [facility] potassium values may be up to 0.5 mmol/L lower than serum values. Performed By: #### L [id number] ####Blood Tester: JOHAN BHANDARI ([id number])[facility]ITALSujata [facility]RE[facility] (SBHLAB)[address] Protein [Mass/Vol] 7.7 g/dL Normal 6.4-8.3 [facility] Comment on above: Performed By: #### L [id number] ####Blood Tester: JOHAN BHANDARI ([id number])[facility] (SBHLAB)[address] Sodium [Moles/Vol] 135 mmol/L Low 136-145 [facility] Comment on above: Performed By: #### L [id number] ####Blood Tester: JOHAN BHANDARI ([id number])[facility] (SBHLAB)[address] Urea nitrogen [Mass/Vol] 27 mg/dL High 9-23 [facility] Comment on above: Performed By: #### L [id number] ####Blood Tester: JOHAN BHANDARI ([id number])[facility] (SBHLAB)[address] Comprehensive metabolic 1998 panelon 08-06-2024 Albumin [Mass/Vol] 2.8 g/dL Low 3.4 - 4.8 g/dL [facility] ALP [Catalytic activity/Vol] 83 U/L 40 - 150 U/L [facility] ALT [Catalytic activity/Vol] 6 U/L NIN - 30 U/L [facility] Anion gap [Moles/Vol] 10 mmol/L 3 - 13 mmol/L [facility] AST [Catalytic activity/Vol] 16 U/L [facility] - [facility] U/L [facility] Bilirubin [Mass/Vol] 0.4 mg/dL NINF - 1.2 mg/dL [facility] Calcium [Mass/Vol] 10.3 mg/dL High 8.8 - 10. 0 mg/dL [facility] Chloride [Moles/Vol] 95 mmol/L Low 98 - 10 7 mmol/L [facility] CO2 [Moles/Vol] 30 mmol/L 23 - 31 mmol/L [facility] Creatinine [Mass/Vol] 0.84 mg/dL 0.57 - 1.11 mg/dL [facility] GFR/1.73 sq M.predicted (S/P/Bld) [Vol rate/Area] 68.2 mL/min - PINF [facility] Comment on above: Calculation based on the Chronic Kidney Disease Epidemiology Collaboration (CKD-EPI) equation refit without adjustment for race Glucose [Mass/Vol] 123 mg/dL High 82 - 115 mg/dL [facility] Interpretation and review of laboratory results Abnormal [facility] Potassium [Moles/Vol] 3.9 mmol/L 3.5 - 5.1 mmol/L [facility] Comment on above: Plasma potassium gustavo ues may be up to 0.5 mmol/L lower than serum values. Protein [Mass/Vol] 7.7 g/dL 6.4 - 8.3 g/dL [facility] Sodium [Moles/Vol] 135 mmol/L Low 136 - 145 mmol/L [facility] Urea nitrogen [Mass/Vol] 27 mg/dL High 9 - 23 mg/dL [facility] - Microbiology an d Antimicrobial susceptibilityOrdered By: Marianna Chapman on 08-06-2024 Bacteria identified Aer cx Nom (Lower resp) Moderate respiratory suri present. [facility] Bacteria identified Aer cx Nom (Lower resp) Many Haemophilus influenzae Abnormal [facility] Progress Noteon 08-06-2024 Progress Note [facility] Pulmonary Medicine [address] [place] [id number] Patient - Krish Peralta, Age - 83 [...] goal SpO (more content not included)... Normal [facility] US Heart TransthoracicOrdere d By: Reji Lay on 08-06-2024 Ao Root Index 1.86 cm/m2 [facility] Work Phone: Aortic Arch 2.7 cm [facility] Work Phone: Aortic Root 3.6 cm [facility] Work Phone: Aortic Sinus Valsalva 3.6 cm [facility] [employer] [facility] Work Phone: Aortic Sinus Valsalva Index 1.86 cm/m2 [facility] Work Phone: Aortic valve Mean systole pressure gradient by US.doppler derived full Bernoulli 9 mmHg [facility] Work Phone: Aortic valve Orifice area by US 3.8 cm2 [facility] Work Phone: Aortic valve Peak systolic flow by US.doppler 1.4 m/s [facility] Work Phone: Ascending Aorta 4.5 cm [facility] Work Phone: Ascending Aorta Index 2.32 cm/m2 [facility] Work Phone: AV Area by Peak Velocity 1.9 cm2 [facility] Work Phone: AV Area by VTI 2.3 cm2 [facility] Work Phone: AV AT 91.34 ms [facility] Work Phone: AV Peak Gradient 15 mmHg [facility] Work Phone: AV Peak Velocity 2 m/s [facility] Work Phone: AV Velocity Ratio 0.5 [facility] ealth Work Phone: AV VTI 36.6 cm [facility] Work Phone: WILLIE/BSA Peak Velocity 1 cm2/m2 [facility] Work Phone: WILLIE/BSA VTI 1.2 cm2/m2 [facility] Work Phone: E/E' Lateral 10.43 [facility] Work Phone: E/E' Ratio (Averaged) 12.51 [facility] Work Phone: E/E' Septal 14.6 [facility] Work Phone: Est. RA Pressure 3 mmHg [facility] Work Phone: Fractional Shortening 2D 47 % 28 - 44 % [facility] [employer] [facility] Work Phone: Interpretation and review of laboratory results Abnormal [facility] Work Phone: IVC Diameter 2.1 cm [facility] [employer] [facility] Work Phone: IVSd 1.6 cm Abnormal 0.6 - 0.9 cm [facility] Work Phone: LA Diameter 3.1 cm [facility] Work Phone: LA Size Index 1.6 cm/m2 [facility] Work Phone: LA Volume 4C 61 mL Abnormal 22 - 52 mL [facility] [employer] [facility] Work Phone: LA Volume Index 4C 31 mL/m2 16 - 34 mL/m2 [facility] Work Phone: LA/AO Root Ratio 0.86 [facility] Work Phone: LV E' Lateral Velocity 7 cm/s [facility] Work Phone: LV E' Septal Velocity 5 cm/s [facility] Work Phone: LV Mass 2D 181.4 g Abnormal 67 - 162 g [facility] Work Phone: LV Mass 2D Index 93.5 g/m2 43 - 95 g/m2 [facility] Work Phone: LV RWT Ratio 0.94 [facility] Work Phone: LVIDd 3.2 cm Abnormal 3.9 - 5.3 cm [facility] Work Phone: LVIDd Index 1.65 cm/m2 [facility] Work Phone: LVIDs 1.7 cm [facility] Work Phone: LVIDs Index 0.88 cm/m2 [facility] Work Phone: LVOT Cardiac Output 6.5 liter/mi nut e [facility] Work Phone: LVOT Diameter 2.2 cm [facility] [employer] [employer] Work Phone: LVOT Mean Gradient 2 mmHg [facility] Work Phone: LVOT Peak Gradient 4 mmHg [facility] Work Phone: LVOT Peak Velocity 1 m/s [facility] Work Phone: LVOT Stroke Volume Index 41.7 mL/m2 [facility] Work Phone: LVOT SV 80.9 ml [facility] Work Phone: LVOT VTI 21.3 cm [facility] Work Phone: LVOT:AV VTI Index 0.58 [facility] [employer] Work Phone: LVPWd 1.5 cm Abnormal 0.6 - 0.9 cm [facility] Work Phone: MV A Velocity 0.61 m/s [facility] Work Phone: MV E Velocity 0.73 m/s [facility] Work Phone: MV E Wave Deceleration Time 206.8 ms [facility] Work Phone: MV E/A 1.2 [facility] Work Phone: RV Free Wall Peak S' 15 cm/s [facility] Work Phone: Sinotubular Junction 3 cm [facility] Work Phone: [facility] Work Phone: US Heart Transthoracicon Left [...] Electronically Signed Date/Time: 08/06/2024 12:12 PM EDT [facility] XR Chest Single viewon 08-06 Lines, [...] Electronically Signed Date/Time: 08/06/2024 12:12 PM EDT [facility] Patient Name: KRISH PERALTA : 1940 Exam Date/Time: 08/06/2024 12:09 Procedure: XR CHEST 1 VIEW Ordering Provider: NERI MANSUR Reason For Exam: follow-up pneumonia EXAMINATION: CHEST RADIOGRAPH (SINGLE VIEW AP OR PA) Clinical History: follow-up pneumonia Comparison: Radiograph 08/03/2024 RESULT: See impression [facility] Ki Payne MD - 08/06/2024 [...] Electronically Signed Date/Time: 08/06/2024 12:12 PM EDT [facility] Radiology Study observation (narrative) [facility] alth XR Chest Single viewOrdered By: Ki Payne on 08-06-2024 [facility] [employer] Work Phone: 30on 08-05-2024 30 Problem: Knowledge Deficit Goal: Patient/family/caregi krysta demonstrates understanding of disease process, treatment plan, medications, and discharge instructions Outcome: Progressing Problem: Potential for Compromised Skin Integrity Goal: Skin Integrity is Maintained or Improved Outcome: Progressing Goal: Nutritional status is improving Outcome: Progressing Problem: Urinary Incontinence Goal: Perineal skin integrity is maintained or improved Outcome: Progressing Normal [facility] 30 Problem: Knowledge Deficit Goal: [...] and discharge instructions Outcome: Not Progressing Normal [facility] Consulton 08-05-2024 Consult Nutrition Assessment Type [...] Unable to assess Fluid Accumulation: Mild Extremities Medicine Tech 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 Presented to [facility] via EMS from SNF with low pulse [...] On: Kcal/kg Weight Used for Energy Requirements: [place] Weight for Energy Calculation (kg): 45 kg Total Energy Requirements (kcals/day): 6510-1637 (25-30 kcal/kg IBW) Weight Used for Protein Requirements: [place] Weight in Kg Used for Protein Requirements: [...] lb) (11/11/23) % Weight Change (Calculated): 11.7 [place] Body Weight (lbs) (Calculated): 100 lbs [place] Body Weight (Kg) (Calculated): 45 kg % [place] Body Weight (Calculated): 220 % BMI (kg/m2) [...] current diet Zuleyka Saul, RDN, LDN, Contact: *[phone] [facility] Consult [facility] Wound Care CONSULT Note Krish Peralta AGE: 83 y.o. GENDER: female : 1940 Subjective: HISTORY of PRESENT ILLNESS HPI Krish Peralta is a 83 y.o. female who presents for a wound consult. HPI: Ms. Peralta is a 83 y.o. female with past medical history significant for COPD. Patient presented to the emergency room from fpc facility for shortness of breath. Patient admitted [...] to follow Recommend to follow up at [facility] Out[facility] wound care center after hospital discharge. [...] hours. furo (more content not included)... Normal [facility] Nursing Noteon 08-05-2024 Nursing Note Patient informed PO steroids were changed back to IV steroids. Patient continues to refuse steroids due to feeling restless and irritable. [facility] Nursing Note RN at bedside to administer PO Prednisone. Patient adamantly refusing to take steroids because they make her restless and irritable. Patient requesting more hydroxyzine because she already feels restless and irritable. RN informed patient of next available time for hydroxyzine to be administered. Dr. Givens notified and RN requested increase in hydroxyzine per patient request. [facility] Progress Noteon 08-05-2024 Progress Note Found pt. On 12L HFN C saturation 97% at this time. Turned pt. Down to 10L HFNC and saturation was 93% prior to her breathing tx. Sent a secure chat to physician that 10L is 60% FIO2 which per our protcol is the max oxygen for the floors. Normal [facility] Progress Note PHYSICAL THERAPY [facility] Treatment Note Name/MRN: Krish Peralta ([id number]) Date of : 1940 Age: 83 y.o. Room/Bed: B2-243/B2-243 B Visit #: 1 out of 5 Discharge Recommendation: Halfway Facility Equipment Needed: No Assessment Pt continues [...] Patient will complet (more content not included)... [facility] Progress Note [facility] Pulmonary Medicine [address], [place] [address] Patient - Krish Peralta, Age - 83 y.o. - 1940 Room Number - B2-243/B2-243 B Consulting - Gee Givens MD Primary Care Physician - No primary care provider on file[id number] Date of Admission - 08/03/2024 4:21 PM [...] BMI, T (more content not included)... Normal [facility] BLOOD GAS, VENOUSon 08-05-19 25 AMOUNT OF OXYGEN Normal [facility] Comment on above: Result Comment: JERAMIE Murri[place] COMMENTS: Assessment of oxygenation is best done with an arterial blood gas determination. Reference ranges for pO2, bicarbonate, and base excess are for mixed venous blood. Specimens drawn from a peripheral vein will often have higher values. Performed By: #### L [id number] #### Blood Tester: JOHAN BHANDARI ([id number]) [facility] ([facility]) [address] [place] [address] Base excess Calc (BldV) [Moles/Vol] 9.6 mmol/L High -3.0-3.0 [facility] Comment on above: Performed By: #### L [id number] #### Blood Tester: JOHAN BHANDARI ([id number]) [facility] [address] CO2 [Moles/Vol] 38.6 mmol/L High 23.0-30.0 [facility] Comment on above: Performed By: #### L [id number] #### Blood Tester: JOHAN BHANDARI ([id number]) [facility] ([facility]) [address] HCO3 (Bld) [Moles/Vol] 36.8 mmol/L High 21.0-30.0 [facility] Comment on above: Performed By: #### L [id number] #### Blood Tester: JOHAN WATTSCANDY ([id number]) [facility] [place] ([facility]) [address] Hemoglobin (Bld) [Mass/Vol] 13.7 g/dL Normal Screen only [facility] Comment on above: Performed By: #### L [id number] #### Blood Tester: JOHAN BHANDARI ([id number]) [facility] ([facility]) [address] OXYGEN (MM HG) IN VENOUS BLOOD 54.5 mm Hg Normal [facility] Comment on above: Performed By: #### L [id number] #### Blood Tester: JOHAN DILLONCER ([id number]) [facility] ([facility]) [address] OXYGEN SATURATION (%) IN VENOUS BLOOD 87.9 % Normal [facility] Comment on above: Performed By: #### L [id number] #### Blood Tester: JOHAN BHANDARI ([id number]) [facility] ([facility]) [address] PCO2, MIGUEL 61.0 mm Hg High 35.0-53.0 [facility] Comment on above: Performed By: #### L [id number] #### Blood Tester: JOHAN BHANDARI ([id number]) [facility] ([facility]) [address] PH VENOUS 7.398 Normal 7.320-7.420 [facility] Comment on above: Performed By: #### L [id number] #### Blood Tester: JOHAN WATTSCANDY ([id number]) [facility] ([facility]) [address] SOURCE OF OXYGEN High Flow Oxygen Therapy (FiO2) Normal [facility] Comment on above: Performed By: #### L [id number] #### Blood Tester: JOHAN BHANDARI ([id number]) [facility] ([facility]) [address] Consulton 08-04-2024 Consult [facility] Pulmonary Medicine [address] [place], [place] [id number] [id number] 1940 Date of Admission - 08/03/2024 4:21 PM Date of Evaluation - 08/04/2024 Room - -Pending sale to [facility] B Hospital Day - 1 Consulting - [...] - hypertension Patient is new to the [facility] pulmonary service, patient thinks she may have seen a subassembler several years ago. She was admitted to [facility] 08/03/24 from SNF for increasing shortness of [...] min Stress: No Stress Concern Present (08/04/2024) [place] [employer] - Occupational Stress Questionnaire Feeling of Stress : Only a little Social Connections: Unknown (08/04/2024) Social Connection and Isolation Panel [NHANES] Frequency of Communication with Friends and Family: Never Frequency of Social Gatherings with Friends and Family: Never Attends Jew Services: Never Active Member of Clubs or [...] hours PRN (more content not included)... Normal [facility] LEGIONELLA AND STREPTOCOCCUS URINE ANTIGENon 08-04-2024 LEGIONELLA AND STREPTOCOCCUS URINE ANTIGEN LEGIONELLA PNEUMOPHILA URINE ANTIGEN Reference Not Detected Not Detected STREPTOCOCCUS PNEUMONIAE URINE ANTIGEN Reference Not Detected Not Detected ORDER COMMENTS: Methodology: Lateral flow enzyme immunoassay This assay is approved for detection of antigens to Streptococcus pneumoniae and Legionella pneumophila serogroup 1; however, other L. pneumophila serogroups may also be detected. Normal [facility] Comment on above: Performed By: #### L [id number] #### Blood Tester: ELODIA CONTRERAS ([id number]) [facility] ([facility]) [address] [place] [address] Laboratory - Chemistry and C hemistry - challengeOrdered By: Sharda Chacon on 08-04-2024 Base excess Calc (BldV) [Moles/Vol] 9.6 mmol/L High -3.0 - 3.0 mmol/L [facility] CO2 (BldV) [Partial pressure] 61 mm[Hg] High [facility] CO2 [Moles/Vol] 38.6 mmol/L High 23.0 - 30.0 mmol/L [facility] HCO3 (Bld) [Moles/Vol] 36.8 mmol/L High 21.0 - 30.0 mmol/L [facility] Oxygen (BldV) [Partial pressure] 54.5 mm[Hg] mm Hg [facility] pH (BldV) 7.398 [pH] 7.320 - 7.420 [facility] Laboratory - Hematology and Cell countsOrdered By: Sharda Chacon on 08-04-2024 Hemoglobin (Bld) [Mass/Vol] 13.7 g/dL 12.0 - 16.0 g/dl [facility] No Panel InformationOrdered By: Katarina Browning on 08-04-2024 Interpretation and review of laboratory results Normal [facility] Legionella pneumophila Ag Not detected Not Detected [facility] Streptococcus pneumoniae Ag Not detected Not Detected [facility] Methodology: Lateral flow enzyme immunoassay This assay is approved for detection of antigens to Streptococcus pneumoniae and Legionella pneumophila serogroup 1; however, other L. pneumophila serogroups may also be detected. [facility] No Panel InformationOrdered By: Sharda Chacon on 08-04-2024 Amount Of Oxygen [facility] [place] Interpretation and review of laboratory results Abnormal [facility] Source Of Oxygen High Flow Oxygen Therapy (FiO2) [facility] Assessment of oxygenation is best done with an arterial blood gas determination. Reference ranges for pO2, bicarbonate, and base excess are for mixed venous blood. Specimens drawn from a peripheral vein will often have higher values. [facility] No Panel Informationon 08-04 Extra Tube Hold for add-ons. [facility] Comment on above: Auto resulted. [facility] Nursing Noteon 08-04-2024 Nursing Note Wound Care consulted for Pressure Injury Prevention. Pt's Emile score= 15 on 08/04 Pt's pressure points assessed. Pt sitting in chair upon arrival for visit. Pt's Heels, Back, Elbows, Occiput and ears all intact. Pt stood with max assist from landscape architecture professor for posterior assessment. Blanchable erythema/purple tissues noted to bilateral buttocks. DTI noted to right buttock, linear area of nonblanchable purple tissues, measures 1cm x 0.3cm, with surrounding blanchable erythema and purple tissues. See photo below. Wound AFFILIATE MARKETING MANAGER group consulted. Brief in place. Pt [...] Verbalized understanding. Prevention Measures in place, including: [place] sheet with pillows/wedges, Heels elevated off bed on pillows, Zinc/Moisture Barrier ointment (applied), Waffle chair cushion (ordered for pt). Skin Care precaution order set in place. Dietitian consult order placed d/t wound. PT consult in place. D/W nursing staff. Right buttock Will continue to follow pt. Please secure chat for any questions or concerns. Mago Cavazos RN [facility] PNEUMONIA PCR PANELon 2024 PNEUMONIA PCR PANEL [...] CTX-M, IMP, KPC, NDM, OXA-48-like, and VIM. [facility] Comment on above: Performed By: #### L [id number], [id number], [id number] #### Blood Tester: JOHAN BHANDARI ([id number]) [facility] [place] ([facility]) [address] [place] [address] [facility] Progress Noteon 08-04-2024 Progress Note - Attestation signed by Jocelyn Tian PT at 08/04/2024 1:18 PM I certify that I was present during the entire session and guided the care given by the Student Physical Therapist. Cosign: Jocelyn Tian PT PHYSICAL THERAPY [facility] Initial Evaluation Name/MRN: Krish Peralta ([id number]) Evaluation Date: 08/04/2024 Date of : 1940 Admission Date: 08/03/2024 4:21 PM Age: 83 y.o. Room[facility]Bed: [facility] B Discharge Recommendation: Halfway Facility Equipment Needed: No Assessment IMPRESSION: Pt [...] climbing assess (more content not included)... Normal [facility] RESPIRATORY CULTURE AND STAI Non 08-04-2024 [...] Non-susceptible NO = No Interpretation ] Normal [facility] Comment on above: Performed By: #### L [id number], [id number], [id number] #### Blood Tester: JOHAN BHANDARI ([id number]) [facility] [address] [place] [address] RESPIRATORY PATHOGENS PANEL BY PCRon 08-04-2024 RESPIRATORY [...] Detected ORDER COMMENTS: Methodology: Multiplex PCR Normal [facility] Comment on above: Performed By: #### L [id number], [id number], [id number] #### Blood Tester: JOHAN BHANDARI ([id number]) [facility] ([facility]) [address] Respiratory pathogens DNA an d RNA panel LYDIA+non-probe (Lower resp)Ordered By: Kalli Mari on 08-04-2024 Acinetobacter baumannii complex Not detected Not Detected [facility] Adenovirus Not detected Not Detected [facility] Chlamydia pneumoniae Not detected Not Detected [facility] Enterobacter cloacae complex Not detected Not Detected [facility] Escherichia coli Not detected Not Detected [facility] FLUAV RNA LYDIA+non-probe Ql (Lower resp) Not detected Not Detected [facility] FLUBV RNA LYDIA+non-probe Ql (Lower resp) Not detected Not Detected [facility] Haemophilus influenzae Detected Abnormal Not Detected [facility] Human Metapneumovirus Not detected Not Detected [facility] Human Rhinovirus/Enterovirus Detected Abnormal Not Detected [facility] Interpretation and review of laboratory results Abnormal [facility] Klebsiella (Enterobacter) aerogenes Not detected Not Detected [facility] Klebsiella oxytoca Not detected Not Detected [facility] Klebsiella pneumoniae Not detected Not Detected [facility] Legionella pneumophila Not detected Not Detected [facility] Moraxella catarrhalis Not detected Not Detected [facility] Mycoplasma pneumoniae Not detected Not Detected [facility] Parainfluenza virus Not detected Not Detected [facility] Proteus spp Not detected Not Detected [facility] Pseudomonas aeruginosa Not detected Not Detected [facility] RSV RNA LYDIA+probe Ql (Resp) Not detected Not Detected [facility] S. agalactiae Org specific cx Ql (Vag fld) Not detected Not Detected [facility] SARS-CoV-2 (COVID-19) RNA LYDIA+non-probe Ql (Nph) Not detected Not Detected [facility] SARS-CoV-2 (COVID-19) RNA LYDIA+probe Ql (Unsp spec) Methodology: Multiplex PCR This panel does not test for SARS-CoV-2 (Covid-19). The following antimicrobial resistance gene is reported if the appropriate organism is detected: mecA. The following antimicrobial resistance genes are reported if detected and the appropriate organisms are detected: CTX-M, IMP, KPC, NDM, OXA-48-like, and VIM. [facility] Serratia marcescens Not detected Not Detected [facility] Staphylococcus aureus Not detected Not Detected [facility] Streptococcus pneumoniae Not detected Not Detected [facility] Streptococcus pyogenes Not detected Not Detected [facility] Respiratory pathogens DNA an d RNA panel LYDIA+non-probe (Nph)on 08-04-2024 Adenovirus Not detected Not Detected [facility] B. pertussis DNA LYDIA+probe Ql (Unsp spec) Not detected Not Detected [facility] Bordetella parapertussis Not detected Not Detected [facility] Chlamydia pneumoniae Not detected Not Detected [facility] Coronavirus 229E Not detected Not Detected [facility] Coronavirus HKU1 Not detected Not Detected [facility] Coronavirus NL63 Not detected Not Detected [facility] Coronavirus OC43 Not detected Not Detected [facility] FLUAV RNA LYDIA+non-probe Ql (Nph) Not detected Not Detected [facility] FLUBV RNA LYDIA+non-probe Ql (Nph) Not detected Not Detected [facility] Human Metapneumovirus Not detected Not Detected [facility] Human Rhinovirus/Enterovirus Not detected Not Detected [facility] Interpretation and review of laboratory results Normal [facility] Mycoplasma pneumoniae Not detected Not Detected [facility] Parainfluenza 1 Not detected Not Detected [facility] Parainfluenza 2 Not detected Not Detected [facility] Parainfluenza 3 Not detected Not Detected [facility] Parainfluenza 4 Not detected Not Detected [facility] Respiratory Syncytial Virus Not detected Not Detected [facility] SARS-CoV-2 (COVID-19) RNA LYDIA+non-probe Ql (Nph) Not detected Not Detected [facility] Methodology: Multiplex PCR [facility] Vital signsOrdered By: Sharda Chacon on 08-04-2024 Oxygen saturation in Venous blood 87.9 % [facility] CBC W Auto Differential pane l (Bld)Ordered By: Ivana Nava on 08-03-2024 Erythrocyte distribution width (RBC) [Ratio] 14.1 % 11.5 - 15.0 % [facility] Hematocrit (Bld) [Volume fraction] 41.5 % 35.0 - 47.0 % [facility] Hemoglobin (Bld) [Mass/Vol] 13.2 g/dL 11.7 - 16.0 g/dL [facility] Interpretation and review of laboratory results Abnormal [facility] MCH (RBC) [Entitic mass] 28.9 pg 26. 0 - 34.0 pg [facility] MCHC (RBC) [Mass/Vol] 31.8 % 30.5 - 36.0 % [facility] MCV (RBC) [Entitic vol] 90.8 fL 77.0 - 99.0 fL [facility] Platelet mean volume (Bld) [Entitic vol] 9.7 fL 9.0 - 12.7 fL [facility] Platelets (Bld) [#/Vol] 141 10*3/uL 140 - 440 10*3/uL [facility] RBC (Bld) [#/Vol] 4.57 10*6/uL 3.80 - 5.2 0 10*6/uL [facility] WBC (Bld) [#/Vol] 11.7 10*3/uL High 3.6 - 10.7 10*3/uL [facility] CBC WITH AUTO DIFFERENTIALon 08-03-2024 Erythrocyte distribution width (RBC) [Ratio] 14.1 % Normal 11.5-15.0 [facility] Comment on above: Performed By: #### L [id number], [id number] ####Blood Tester: JOHAN BHANDARI ([id number])[facility] ([facility])[address] [place] [address] Hematocrit (Bld) [Volume fraction] 41.5 % Normal 35.0-47.0 [facility] Comment on above: Performed By: #### L [id number], [id number] ####Blood Tester: JOHAN BHANDARI ([id number])[facility] ([facility])[address] [place] [address] Hemoglobin (Bld) [Mass/Vol] 13.2 g/dL Normal 11.7-16.0 [facility] Comment on above: Performed By: #### L [id number], [id number] ####Blood Tester: JOHAN BHANDARI ([id number])[facility])[address] [place] [address] MCH (RBC) [Entitic mass] 28.9 pg Normal 26.0-34.0 [facility] Comment on above: Performed By: #### L [id number], [id number] ####Blood Tester: JOHAN BHANDARI ([id number])[facility] ([facility])[address] MCHC 31.8 % Normal 30.5-36.0 [facility] Comment on above: Performed By: #### L [id number], [id number] ####Blood Tester: JOHAN BHANDARI ([id number])[facility] ([facility])[address] MCV (RBC) [Entitic vol] 90.8 fL Normal 77.0-99.0 [facility] Comment on above: Performed By: #### L [id number], [id number] ####Blood Tester: JOAHN BHANDARI ([id number])[facility] ([facility])[address] [place] [address] Platelet mean volume (Bld) [Entitic vol] 9.7 fL Normal 9.0-12.7 [facility] Comment on above: Performed By: #### L [id number], [id number] ####Blood Tester: JOHAN BHANDARI ([id number])[facility]ITAL[facility] ([facility])[address] Platelets (Bld) [#/Vol] 141 10*3/uL Normal 140-440 [facility] Comment on above: Performed By: #### L [id number], [id number] ####Blood Tester: JOHAN BHANDARI ([id number])[facility] [place] ([facility])[address] RBC (Bld) [#/Vol] 4.57 10*6/uL Normal 3.80-5.20 [facility] Comment on above: Performed By: #### L [id number], [id number] ####Blood Tester: JOHAN BHANDARI ([id number])[facility] ([facility])[address] [place] [address] [place] WBC (Bld) [#/Vol] 11.7 10*3/uL High 3.6-10.7 [facility] Comment on above: Performed By: #### L [id number], [id number] ####Blood Tester: JOHAN BHANDARI ([id number])[facility] ([facility])[address] COMPREHENSIVE METABOLIC PANE Alex 08-03-2024 Albumin [Mass/Vol] 3.0 g/dL Low 3.4-4.8 [facility] Comment on above: Performed By: #### L [id number] #### Blood Tester: JOHAN BHANDARI ([id number]) [facility] ([facility]) [address] ALP [Catalytic activity/Vol] 85 U/L Normal 40-150 [facility] Comment on above: Performed By: #### L [id number] #### Blood Tester: JOHAN BHANDARI ([id number]) [facility] ([facility]) [address] ALT [Catalytic activity/Vol] U/L Normal <30 [facility] Comment on above: Performed By: #### L [id number] #### Blood Tester: JOHAN BHANDARI ([id number]) [facility] ([facility]) [address] Anion gap [Moles/Vol] 11 mmol/L Normal 3-13 [facility] Comment on above: Performed By: #### L [id number] #### Blood Tester: JOHAN BHANDARI ([id number]) [facility] ([facility]) [address] AST [Catalytic activity/Vol] 17 U/L Normal <34 [facility] Comment on above: Performed By: #### L [id number] #### Blood Tester: JOHAN BHANDARI ([id number]) [facility] ([facility]) [address] Bilirubin [Mass/Vol] 0.8 mg/dL Normal <1.2 [facility] Comment on above: Performed By: #### L [id number] #### Blood Tester: JOHAN BHANDARI ([id number]) [facility] ([facility]) [address] Calcium [Mass/Vol] 9.7 mg/dL Normal 8.8-10.0 [facility] Comment on above: Performed By: #### L [id number] #### Blood Tester: JOHAN BHANDARI ([id number]) [facility] ([facility]) [address] Chloride [Moles/Vol] 96 mmol/L Low 98-107 [facility] Comment on above: Performed By: #### L [id number] #### Blood Tester: JOHAN BHANDARI ([id number]) [facility] ([facility]) [address] CO2 [Moles/Vol] 29 mmol/L Normal 23-31 [facility] Comment on above: Performed By: #### L [id number] #### Blood Tester: JOHAN BHANDARI ([id number]) [facility] ([facility]) [address] Creatinine [Mass/Vol] 0.79 mg/dL Normal 0.57-1.11 [facility] [facility] Comment on above: Performed By: #### L [id number] #### Blood Tester: JOHAN BHANDARI ([id number]) [facility] (SB[facility]) [address] GLOMERULAR FILTRATION RATE ML/MIN/1.73 SQ M.PREDICTED 73.4 mL/min/1.73m*2 Normal >60.0 [facility] Comment on above: Result Comment: Calc ulation based on the Chronic Kidney Disease Epidemiology Collaboration (CKD-EPI) equation refit without adjustment for race Performed By: #### L [id number] #### Blood Tester: JOHAN BHANDARI ([id number]) [facility] ([facility]) [address] Glucose [Mass/Vol] 90 mg/dL Normal 82-115 [facility] Comment on above: Performed By: #### L [id number] #### Blood Tester: JOHAN BHANDARI ([id number]) [facility] (SBHLAB) [address] Potassium [Moles/Vol] 4.0 mmol/L Normal 3.5-5.1 [facility] Comment on above: Result Comment: [facility] potassium values may be up to 0.5 mmol/L lower than serum values. Performed By: #### L [id number] #### Blood Tester: JOHAN BHANDARI ([id number]) [facility] ([facility]) [address] Protein [Mass/Vol] 7.7 g/dL Normal 6.4-8.3 [facility] Comment on above: Performed By: #### L [id number] #### Blood Tester: JOHAN BHANDARI ([id number]) [facility] (HLAB) [address] Sodium [Moles/Vol] 136 mmol/L Normal 136-145 [facility] Comment on above: Performed By: #### L [id number] #### Blood Tester: JOHAN BHANDARI ([id number]) [facility] (HLAB) [address] Urea nitrogen [Mass/Vol] 13 mg/dL Normal 9-23 [facility] Comment on above: Performed By: #### L [id number] #### Blood Tester: JOHAN BHANDARI ([id number]) [facility] (HLAB) [address] Comprehensive metabolic 1998 panelon 08-03-2024 Albumin [Mass/Vol] 3 g/dL Low 3.4 - 4.8 g/dL [facility] ALP [Catalytic activity/Vol] 85 U/L 40 - 150 U/L [facility] ALT [Catalytic activity/Vol] U/L NINF - 30 U/L [facility] Anion gap [Moles/Vol] 11 mmol/L 3 - 13 mmol/L [facility] AST [Catalytic activity/Vol] 17 U/L NINF - 34 U/L [facility] Bilirubin [Mass/Vol] 0.8 mg/dL NINF - 1.2 mg/dL [facility] Calcium [Mass/Vol] 9.7 mg/dL 8.8 - 10. 0 mg/dL [facility] Chloride [Moles/Vol] 96 mmol/L Low 98 - 10 7 mmol/L [facility] CO2 [Moles/Vol] 29 mmol/L 23 - 31 mmol/L [facility] Creatinine [Mass/Vol] 0.79 mg/dL 0.57 - 1.11 mg/dL [facility] GFR/1.73 sq M.predicted (S/P/Bld) [Vol rate/Area] 73.4 mL/min - PINF [facility] Comment on above: Calculation based on the Chronic Kidney Disease Epidemiology Collaboration (CKD-EPI) equation refit without adjustment for race Glucose [Mass/Vol] 90 mg/dL 82 - 115 mg/dL [facility] Interpretation and review of laboratory results Abnormal [facility] Potassium [Moles/Vol] 4 mmol/L 3.5 - 5.1 mmol/L [facility] Comment on above: Plasma potassium gustavo ues may be up to 0.5 mmol/L lower than serum values. 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 Normal [facility] ED Nursing Note Patient arrives from SNF via EMS due to SOB and low pulse oximetry readings. Ems reports the capnography was in the 50's for CO2 level. The SNF was trying all day to get the patient to agree to come to the ED for evaluation and she refused. Patient finally agrees but refused the EMS BiPap. Normal [facility] ED Provider Noteon ED Provider Note [...] Right arm (more content not included)... Normal [facility] HIGH SENSITIVITY TROPONIN, S ERIAL BASELINEon 08-03-2024 TROPONIN HS SERIAL BASELINE 3 ng/L Normal <=14 [facility] Comment on above: Result Comment: In i ndividuals presenting with symptoms > 2h, a baseline troponin <= 5 ng/L suggests acute cardiac injury is unlikely and further serial testing is generally not indicated. Performed By: #### L [id number], [id number], [id number] #### Blood Tester: JOHAN BHANDARI ([id number]) [facility] ([facility]) [address] [place] [address] HIGH SENSITIVITY TROPONIN, S ERIAL, SECOND TESTon 08-03-2024 2H TROPONIN HS (SERIAL 2ND TROPONIN) 4 ng/L Normal <=14 [facility] Comment on above: Result Comment: Risi ng or falling troponin delta below 2 ng/L as compared to baseline value suggests that acute cardiac injury is unlikely. Performed By: #### L [id number] ####Blood Tester: JOHAN BHANDARI ([id number])[facility] ([facility] [place] [address] Laboratory - Hematology and Cell countson 08-03-2024 Band form neutrophils (Bld) [#/Vol] 0.2 10*3/uL High NINF - 0.0 10*3/uL [facility] Band form neutrophils/100 WBC (Bld) 2 % High NINF - 0 % [facility] Giant platelets LM Ql (Bld) Rare Abnormal (none) [facility] Lymphocytes (Bld) [#/Vol] 1.1 10*3/uL 1.0 - 4.3 10*3/uL [facility] Health Lymphocytes/100 WBC (Bld) 9 % Low 15 - 45 % [facility] Health Monocytes (Bld) [#/Vol] 0.7 10*3/uL 0.0 - 0.9 10*3/uL [facility] Monocytes/100 WBC (Bld) 6 % 5 - 13 % S [facility] Myelocytes (Bld) [#/Vol] 0.1 10*3/uL High KRYSTIN F - 0.0 10*3/uL [facility] Myelocytes/100 WBC (Bld) 1 % High NINF - 0 % [facility] Neutrophils (Bld) [#/Vol] 9.8 10*3/uL High 1.8 - 7.5 10*3/uL [facility] Ovalocytes LM Ql (Bld) Rare Abnormal (none) [facility] RBC morphology finding Nom (Bld) abnormal [facility] Segmented neutrophils/100 WBC (Bld) 82 % 38 - 82 % [facility] Stomatocytes LM Ql (Bld) Slight Abnormal (none) [facility] MANUAL DIFFERENTIAL (CELLAVI ASHLIE)on 08-03-2024 BAND NEUTROPHILS TOTAL PER COUNTED LEUKOCYTES BY MANUAL COUNT 2 Normal [facility] Comment on above: Performed By: #### L [id number], [id number] ####Blood Tester: JOHAN BHANDARI ([id number])[facility] ([facility])[address] BANDS (10*3/UL) IN BLOOD-CELLAVISION 0.2 10*3/uL High <=0.0 [facility] Comment on above: Performed By: #### L [id number], [id number] ####Blood Tester: JOHAN BHANDARI ([id number])[facility] [place] (SBHLAB)[address] [place] [address] [place] BASOPHILS TOTAL PER COUNTED LEUKOCYTES BY MANUAL COUNT Normal [facility] Comment on above: Performed By: #### L [id number], [id number] ####Blood Tester: JOHAN BHANDARI ([id number])[facility] ([facility])[address] [place] [address] [place] BLASTS TOTAL PER COUNTED LEUKOCYTES BY MANUAL COUNT Normal [facility] Comment on above: Performed By: #### L [id number], [id number] ####Blood Tester: JOHAN BHANDARI ([id number])[facility] [place] ([facility])[address] [place] [address] [place] EOSINOPHILS TOTAL PER COUNTED LEUKOCYTES BY MANUAL COUNT Normal [facility] Comment on above: Performed By: #### L [id number], [id number] ####Blood Tester: JOHAN BHANDARI ([id number])[facility] [place] ([facility])[address] [place] [address] [place] LYMPHOCYTES (10*3/UL) IN BLOOD-CELLAVISION 1.1 10*3/uL Normal 1.0-4.3 [facility] Comment on above: Performed By: #### L [id number], [id number] ####Blood Tester: JOHAN BHANDARI ([id number])[facility] [place] ([facility])[address] [place] [address] [place] LYMPHOCYTES TOTAL PER COUNTED LEUKOCYTES BY MANUAL COUNT 9 Normal [facility] Comment on above: Performed By: #### L [id number], [id number] ####Blood Tester: JOHAN BHANDARI ([id number])[facility] [place] ([facility])[address] [place] [address] [place] LYMPHOCYTES/100 LEUKOCYTES IN BLOOD-CELLAVISION 9 % Low 15-45 [facility] Comment on above: Performed By: #### L [id number], [id number] ####Blood Tester: JOHAN BHANDARI ([id number])[facility] [place] ([facility])[address] [place] [address] [place] METAMYELOCYTES TOTAL PER COUNTED LEUKOCYTES BY MANUAL COUNT Normal [facility] Comment on above: Performed By: #### L [id number], [id number] ####Blood Tester: JOHAN BHANDARI ([id number])[facility] [place] ([facility])[address] [place] [address] [place] MONOCYTES (10*3/UL) IN BLOOD-CELLAVISION 0.7 10*3/uL Normal 0.0-0.9 [facility] Comment on above: Performed By: #### L [id number], [id number] ####Blood Tester: JOHAN BHANDARI ([id number])[facility] [place] (SBHLAB)[address] [place] [address] [place] MONOCYTES TOTAL PER COUNTED LEUKOCYTES BY MANUAL COUNT 6 Normal [facility] Comment on above: Performed By: #### L [id number], [id number] ####Blood Tester: JOHAN BHANDARI ([id number])[facility] [place] (SBHLAB)[address] [place] [address] [place] MONOCYTES/100 LEUKOCYTES IN BLOOD-LOLY 6 % Normal 5-13 [facility] Comment on above: Performed By: #### L [id number], [id number] ####Blood Tester: JOHAN BHANDARI ([id number])[facility] [place] ([facility])[address] [place] [address] [place] MYELOCYTES (10*3/UL) IN BLOOD-CELLAVISION 0.1 10*3/uL High <=0.0 [facility] Comment on above: Performed By: #### L [id number], [id number] ####Blood Tester: JOHAN BHANDARI ([id number])[facility] [place] (SB[facility])[address] [place] [address] [place] MYELOCYTES COUNTED BY MANUAL COUNT 1 Normal [facility] Comment on above: Performed By: #### L [id number], [id number] ####Blood Tester: JOHAN BHANDARI ([id number])[facility] [place] (SBHLAB)[address] [place] [address] [place] MYELOCYTES/100 LEUKOCYTES IN BLOOD-CELLAVISION 1 % High <=0 [facility] Comment on above: Performed By: #### L [id number], [id number] ####Blood Tester: JOHAN BHANDARI ([id number])[facility] [place] (SBHLAB)[address] [place] [address] [place] NEUTROPHILS BAND FORM/100 LEUKOCYTES IN BLOOD-CELLAVISI 2 % High <=0 [facility] Comment on above: Performed By: #### L [id number], [id number] ####Blood Tester: JOHAN BHANDARI ([id number])[facility] ([facility])[address] [place] [address] [place] NEUTROPHILS TOTAL PER COUNTED LEUKOCYTES BY MANUAL COUNT 83 Normal [facility] Comment on above: Performed By: #### L [id number], [id number] ####Blood Tester: JOHAN BHANDARI ([id number])[facility] ([facility])[address] [place] [address] [place] OVALOCYTES PRESENCE IN BLOOD BY LIGHT MICROSCOPY Rare Abnormal (none) [facility] Comment on above: Performed By: #### L [id number], [id number] ####Blood Tester: JOHAN BHANDARI ([id number])[facility] ([facility])[address] [place] [address] [place] PLATELETS GIANT PRESENCE IN BLOOD BY LIGHT MICROSCOPY Rare Abnormal (none) [facility] Comment on above: Performed By: #### L [id number], [id number] ####Blood Tester: JOHAN BHANDARI ([id number])[facility] (SB[facility])[address] [place] [address] [place] PROMYELOCYTES TOTAL PER COUNTED LEUKOCYTES BY MANUAL COUNT Normal [facility] Comment on above: Performed By: #### L [id number], [id number] ####Blood Tester: JOHAN BHANDARI ([id number])[facility] ([facility])[address] [place] [address] [place] RBC MORPHOLOGY IN BLOOD abnormal Normal [facility] Comment on above: Performed By: #### L [id number], [id number] ####Blood Tester: JOHAN BHANDARI ([id number])[facility] ([facility])[address] [place] [address] [place] SEGMENTED NEUTROPHILS (10*3/UL) IN BLOOD-CELLAVISION 9.8 10*3/uL High 1.8-7.5 [facility] Comment on above: Performed By: #### L [id number], [id number] ####Blood Tester: JOHAN BHANDARI ([id number])[facility] ([facility])[address] SEGMENTED NEUTROPHILS/100 LEUKOCYTES-CE 82 % Normal 38-82 [facility] Comment on above: Performed By: #### L [id number], [id number] ####Blood Tester: JOHAN BHANDARI ([id number])[facility] ([facility])[address] STOMATOCYTES IN BLOOD BY LIGHT MICROSCOPY Slight Abnormal (none) [facility] Comment on above: Performed By: #### L [id number], [id number] ####Blood Tester: JOHAN BHANDARI ([id number])[facility] ([facility])[address] UNCLASSIFIED CELLS TOTAL PER COUNTED LEUKOCYTES BY MANUAL COUNT Normal [facility] Comment on above: Performed By: #### L [id number], [id number] ####Blood Tester: JOHAN BHANDARI ([id number])[facility] ([facility])[address] VARIANT LYMPHOCYTES TOTAL PER COUNTED LEUKOCYTES BY MANUAL COUNT Normal [facility] Comment on above: Performed By: #### L [id number], [id number] ####Blood Tester: JOHAN BHANDARI ([id number])[facility] ([facility])[address] [place] [address] [place] NT PRO BNPon 08-03-2024 Natriuretic peptide B (Bld) [Mass/Vol] 890 pg/mL High <450 [facility] Comment on above: Performed By: #### L [id number], [id number], [id number] #### Blood Tester: JOHAN BHANDARI ([id number]) [facility] ([facility]) [address] [place] [address] [place] Natriuretic peptide B [Mass/ Vol]on 08-03-2024 Interpretation and review of laboratory results Abnormal [facility] Natriuretic peptide B (Bld) [Mass/Vol] 890 pg/mL High NINF - 450 pg/mL [facility] No Panel Informationon 08-03 2h Troponin HS (Serial 2nd Troponin) 4 ng/L NINF - 14 ng/L [facility] Comment on above: Rising or falling tr oponin delta below 2 ng/L as compared to baseline value suggests that acute cardiac injury is unlikely. Interpretation and review of laboratory results Normal [facility] Health Atypical Lymphocytes Manual [facility] Health Bands Manual 2 [facility] Basophils Manual [facility]th Blasts Manual [facility] Healt h Eosinophils Manual [facility] Interpretation and review of laboratory results Abnormal [facility] Lymphocytes Manual 9 [facility] Health Metamyelocytes Manual [facility] Health Monocytes Manual 6 [facility] Myelocytes Manual 1 [facility] ealth Neutrophils Manual 83 [facility] Promyelocytes Manual [facility] Unclassified Cells, Manual [facility] Interpretation and review of laboratory results Normal [facility] Troponin HS Serial Baseline 3 ng/L NINF - 14 ng/L [facility] Comment on above: In individuals prese nting with symptoms > 2h, a baseline troponin <= 5 ng/L suggests acute cardiac injury is unlikely and further serial testing is generally not indicated. 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 Anterior Q waves, possibly due to LVH Electronically Signed On 08-03-2024 17:43:39 EDT by Khari Souza [facility] No Panel InformationOrdered By: Khari Souza on 08-03-2024 P Sterling 61 degrees [facility] [employer] Work Phone: WA Interval 197 ms [facility] [employer] Work Phone: QRS Sterling -47 degrees [facility] [employer] Work Phone: QRSD Interval 124 ms [facility] [employer] Work Phone: QT Interval 399 ms [facility] [employer] Work Phone: QTC Interval 482 ms [facility] Work Phone: T Wave Sterling 82 degrees [facility] Work Phone: [facility] Hospital[facility] Phone: Vital signsOrdered By: Osvaldo Souza on 08-03-2024 Heart rate 88 /min bpm [employer] Phone: XR Chest Single viewon 08-03 Patient [...] Electronically Signed Date/Time: 08/03/2024 5:43 PM EDT [facility] Sterling Tian MD - 08/03/2024 [...] Electronically Signed Date/Time: 08/03/2024 5:43 PM EDT [facility] Radiology Study observation (narrative) [facility] XR Chest Single viewOrdered By: Sterling Tian on 08-03-2024 [facility] Work Phone: Respiratory Cultureon 2024 RESPC Streptococcus [...] S Penicillin Islt GERMAN <=0.06 S Normal [facility] Comment on above: Performed By: #### L 100.0500, L500.2500 #### [facility] [address] [place], [place], [id number] Urine Cultureon 04-19-2024 [facility] Escherichia coli [place] Count >100,000 Escherichia coli: REACTION Ampicillin Islt [...] TMP SMX Islt GERMAN <=20 S Normal [facility] Comment on above: Performed By: #### L 100.0500, L500.2500 #### [facility] [address] [place], [place], [id number] Basic Metabolic Profile (BMP )on 04-18-2024 BUN/CRE 33.2 RATIO High 10-20 [facility] Comment on above: Performed By: #### L 100.0500, L500.2500 #### [facility] [address] [place], [address] CA,Total 9.9 mg/dL Normal 8.5-10.1 [facility] Comment on above: Performed By: #### L 100.0500, L500.2500 #### [facility] [address] [place], [address] Chloride [Moles/Vol] 98 mmol/L Normal 98-107 [facility] Comment on above: Performed By: #### L 100.0500, L500.2500 #### [facility] [address] [place], [address] CO2 [Moles/Vol] 29.0 mmol/L Normal 21.0-32.0 [facility] Comment on above: Performed By: #### L 100.0500, L500.2500 #### [facility] [address] [place], [address] Creatinine [Mass/Vol] 0.72 mg/dL Normal 0.55-1.02 [facility] Comment on above: Result Comment: The validity of the calculated GFR GFRAA in patients over 70 years has not been determined. Clinical correlation is essential. Performed By: #### L 100.0500, L500.2500 #### [facility] [address] [place], [address] ECRCL 52.82 ml/min Normal [facility] Comment on above: Performed By: #### L 100.0500, L500.2500 #### [facility] [address] [place], [address] EST GFR - AA 99 mL/min Normal >60 [facility] Comment on above: Result Comment: Afri can Citizen Of [place] GFR Calc Performed By: #### L 100.0500, L500.2500 #### [facility] [address] [place], [address] GAP 10 Normal 5-15 [facility] Comment on above: Performed By: #### L 100.0500, L500.2500 #### [facility] [address] [place], [address] GFR/1.73 sq M.predicted among non-blacks MDRD (S/P/Bld) [Vol rate/Area] 82 mL/min/{1.73_m2} Normal >60 [facility] Comment on above: Result Comment: Non- GFR Calc Performed By: #### L 100.0500, L500.2500 #### [facility] [address] [place], [address] Glucose [Mass/Vol] 107 mg/dL High 74-106 [facility] Comment on above: Result Comment: Fast ing Glucose result from 100 to 125 mg/dL suggests IMPAIRED HOMEOSTASIS per A.D.A. criteria. Performed By: #### L 100.0500, L500.2500 #### [facility] [address] [place], [address] Potassium [Moles/Vol] 4.4 mmol/L Normal 3.5-5.1 [facility] Comment on above: Performed By: #### L 100.0500, L500.2500 #### [facility] [address] [place], [address] Sodium [Moles/Vol] 137 mmol/L Normal 136-145 [facility] Comment on above: Performed By: #### L 100.0500, L500.2500 #### [facility] [address] [place], [address] Urea nitrogen [Mass/Vol] 24 mg/dL High 7-18 [facility] Comment on above: Performed By: #### L 100.0500, L500.2500 #### [facility] [address] [place], [address] CBC-Complete Blood Cnt No Di ffon 04-18-2024 PLT TNP Normal 150-450 [facility] Comment on above: Result Comment: Arsenio tabor note: For this sample, a platelet estimate is provided rather than a platelet count due to platelet clumping. Other parameters associated with this sample are not affected by platelet clumping. If a more accurate platelet count is required, a redraw of the patient will be necessary. ADQ PLT COUNT Performed By: #### L 100.0500, L500.2500 #### [facility] [address] [place], [address] Erythrocyte distribution width (RBC) [Ratio] 14.3 % Normal 11.6-14.6 [facility] Comment on above: Performed By: #### L 100.0500, L500.2500 #### [facility] [address] [place], [address] Hematocrit (Bld) [Volume fraction] 41.9 % Normal 37-47 [facility] Comment on above: Performed By: #### L 100.0500, L500.2500 #### [facility] [address] [place], [address] Hemoglobin (Bld) [Mass/Vol] 13.5 g/dL Normal 12.0-15.0 [facility] Comment on above: Performed By: #### L 100.0500, L500.2500 #### [facility] [address] [place], [address] MCH (RBC) [Entitic mass] 28.2 pg Normal 27.0-32.0 [facility] Comment on above: Performed By: #### L 100.0500, L500.2500 #### [facility] [address] [place], [address] MCHC (RBC) [Mass/Vol] 32.2 g/dL Normal 32-36 [facility] Comment on above: Performed By: #### L 100.0500, L500.2500 #### [facility] [address] [place], [address] MCV (RBC) [Entitic vol] 87.7 fL Normal 81-99 [facility] Comment on above: Performed By: #### L 100.0500, L500.2500 #### [facility] [address] [place], [address] Platelet mean volume (Bld) [Entitic vol] 10.0 fL Normal 6.2-12.0 [facility] Comment on above: Performed By: #### L 100.0500, L500.2500 #### [facility] [facility] [address] [place], [address] RBC (Bld) [#/Vol] 4.78 10*6/uL Normal 4.2-5.4 [facility] Comment on above: Performed By: #### L 100.0500, L500.2500 #### [facility] [address] [place], [address] RDW SD 46.3 fl High 35.1-43.9 [facility] Comment on above: Performed By: #### L 100.0500, L500.2500 #### [facility] [address] [place], [address] WBC (Bld) [#/Vol] 8.7 10*3/uL Normal 4.4-11.0 [facility] Comment on above: Performed By: #### L 100.0500, L500.2500 #### [facility] [address] [place], [address] Gram Stainon 04-18-2024 GS Acceptable Specimen? Yes (<25 Epithelial cells per/lpf) Gram Stain 4+ White Blood Cells 3+ Gram positive diplococci No Epithelial cells Normal [facility] Comment on above: Performed By: #### L 100.0500, L500.2500 #### [facility] [address] [place], [address] BNP,B-Type NATRIURETIC PEPTI Savi 04-17-2024 Natriuretic peptide B (Bld) [Mass/Vol] 84.1 pg/mL Normal 0-100 [facility] Comment on above: Performed By: #### L 400.0001, #### [facility] [address] [place], [address] Basic Metabolic Profile (BMP )on 04-17-2024 BUN/CRE 20.6 RATIO High 10-20 [facility] Comment on above: Performed By: #### L 400.0001, #### [facility] [address] [place], [address] CA,Total 9.8 mg/dL Normal 8.5-10.1 [facility] Comment on above: Performed By: #### L 400.0001, #### [facility] [address] [place], [address] Chloride [Moles/Vol] 95 mmol/L Low 98-107 [facility] Comment on above: Performed By: #### L 400.0001, #### [facility] [address] [place], [address] CO2 [Moles/Vol] 36.0 mmol/L High 21.0-32.0 [facility] Comment on above: Performed By: #### L 400.0001, #### [facility] [address] [place], [address] Creatinine [Mass/Vol] 0.83 mg/dL Normal 0.55-1.02 [facility] Comment on above: Result Comment: The validity of the calculated GFR GFRAA in patients over 70 years has not been determined. Clinical correlation is essential. Performed By: #### L 400.0001, #### [facility] [address] [place], [address] ECRCL 52.04 ml/min Normal [facility] Comment on above: Performed By: #### L 400.0001, #### [facility] [address] [place], [address] EST GFR - AA 84 mL/min Normal >60 [facility] Comment on above: Result Comment: Afri can Citizen [place] GFR Calc Performed By: #### L 400.0001, #### [facility] [address] [place], [address] GAP 5 Normal 5-15 [facility] Comment on above: Performed By: #### L 400.0001, #### [facility] [address] [place], [address] GFR/1.73 sq M.predicted among non-blacks MDRD (S/P/Bld) [Vol rate/Area] 70 mL/min/{1.73_m2} Normal >60 [facility] Comment on above: Result Comment: Non- GFR Calc Performed By: #### L 400.0001, #### [facility] [address] [place], [address] Glucose [Mass/Vol] 85 mg/dL Normal 74-106 [facility] Comment on above: Performed By: #### L 400.0001, #### [facility] [address] [place], [address] Potassium [Moles/Vol] 4.1 mmol/L Normal 3.5-5.1 [facility] Comment on above: Result Comment: Slig ht Hemolysis, Result may be falsely increased. Performed By: #### L 400.0001, #### [facility] [address] [place], [address] Sodium [Moles/Vol] 136 mmol/L Normal 136-145 [facility] Comment on above: Performed By: #### L 400.0001, M100.2200 #### [facility] [address] [place], [address] Urea nitrogen [Mass/Vol] 17 mg/dL Normal 7-18 [facility] Comment on above: Performed By: #### L 400.0001, M100.2200 #### [facility] [address] [place], [address] Blood Gases by CPSon 025 DONY TEST Positive Normal [facility] Comment on above: Performed By: #### L 9000.0800 #### [facility] [address] [place], [address] Base excess Calc (Bld) [Moles/Vol] 12 mmol/L High -2 to +2 [facility] Comment on above: Performed By: #### L 9000.0800 #### [facility] [address] [place], [address] Blood Gas Type ART Normal [facility] Comment on above: Performed By: #### L 9000.0800 #### [facility] [address] [place], [address] CO2 [Moles/Vol] 38 mmol/L Normal [facility] Comment on above: Performed By: #### L 9000.0800 #### [facility] [address] [place], [address] FI02 8.0 Normal [facility] Comment on above: Performed By: #### L 9000.0800 #### [facility] [address] [place], [address] HCO3 (Bld) [Moles/Vol] 36.1 mmol/L High 22-26 [facility] Comment on above: Performed By: #### L 9000.0800 #### [facility] [address] [place], [address] Mode Not entered Normal [facility] Comment on above: Performed By: #### L 9000.0800 #### [facility] [address] [place], [address] O2 Delivery Dev Not entered Normal [facility] Comment on above: Performed By: #### L 9000.0800 #### [facility] [address] [place], [address] pCO2 53.5 mmHg High 35-45 [facility] Comment on above: Performed By: #### L 9000.0800 #### [facility] [address] [place], [address] pH (Bld) 7.44 [pH] Normal 7.35-7.45 [facility] Comment on above: Performed By: #### L 9000.0800 #### [facility] [address] [place], [address] PO2 78 mmHG Normal 75-100 [facility] Comment on above: Performed By: #### L 9000.0800 #### [facility] [address] [place], [address] SITE R Radial Normal [facility] Comment on above: Performed By: #### L 9000.0800 #### [facility] [address] [place], [address] SO2 96 Normal 95-99 [facility] Comment on above: Performed By: #### L 9000.0800 #### [facility] [address] [place], [address] CBC W/Diff, Automatedon 02-0 SMEAR COMMENT SCANNED Normal [facility] Comment on above: Result Comment: MONO CYTOSIS PRESENT Performed By: #### L 400.0001, M100.2200 #### [facility] [address] [place], [address] Chest 1 View (Portable)on Chest 1 View (Portable) [facility] Services [address] [place] [address] Chest 1 View (Portable) MR#: [id number] Acct: [id number] Name: KRISH PERALTA Rep #: [id number] : 1940 F 83 From: Wil Tompkins i, DO PCP: Status: PRE ER Study: Chest 1 View (Portable) Date of Exam: 04/17/24 Exam# [id number] Ordering Dr: Ayan Virk DO PROCEDURE: Portable [...] Reading Location: [facility] CC: Ayan Virk DO Entry Specialist: Signed Normal [facility] Emergency Department Summary on 04-17-2024 Emergency Department Summary [facility] Medical Records Department [address] [place] [address] Emergency Department Summary 04/17/24 MR#: [id number] Acct: [id number] Name: KRISH PERALTA Rep #: [id number] : 1940 83 From: Ayan Virk DO [...] around 2 in the afternoon. Patient and half-way staff state it seemed to have worsened [...] 2 DuoNeb's and Solu-Medrol prior to arrival [facility] Medical History Hypothyroidism, unspecified Other intervertebral [...] and rhythm (more content not included)... Normal [facility] H AND P Exam - Hospitaliston 04-17-2024 H&P Exam - Hospitalist [facility] Medical Records Department [address] [place] [address] H P Exam - Hospitalist 04/17/24 0728 MR#: [id number] Acct: [id number] Name: KRISH PERALTA Rep #: [id number] : 1940 83 From: Tacos Bender DO PCP: Dr. Kaleb Mace Sr., DO Status:ADM IN Location: [facility] [id number] HPI - General General Date of Admission: 04/17/24 Date of Service: 04/17/24 Chief Complaint: Worsening shortness of breath with cough HPI Narrative KRISH PERALTA, is a 83 F who presented to [facility] ED on 04/17/2024 from half-way for worsening shortness of breath with cough. Has known history of COPD but does not wear oxygen at baseline. Staff at half-way noted that patient had worsening cough and [...] somewhat confused. She knew she was at [facility] but could not tell me month or year. She was mildly agitated and appeared upset that she needed to be admitted to the hospital. She denied any shortness of breath currently on supplemental oxygen. Denied any fevers or chills. No other acute concerns this time. [facility] Medical History Hypothyroidism, unspecified Other intervertebral disc [...] Breath Labore (more content not included)... Normal [facility] M100.678on 04-17-2024 M100.678 Pending SARS-CoV-2 (COVID 19) Negative INFLUENZA A Negative INFLUENZA B Negative RSV PCR Negative Normal [facility] Comment on above: Performed By: #### L 100.0500, L500.2500 #### [facility] [address] [place], [place], [address] Magnesiumon 04-17-2024 Magnesium [Mass/Vol] 1.7 mg/dL Normal 1.6-2.6 [facility] Comment on above: Result Comment: Slig ht Hemolysis, Result may be falsely increased. Performed By: #### L 400.0001, M100.2200 #### [facility] [address] [place], [address] Procalcitoninon 04-17-2024 Procalcitonin 0.16 ng/mL High 0.00-0.09 [facility] Comment on above: Result Comment: A [...] Performed By: #### L 100.0500, L500.2500 #### [facility] [address] [place], [address] RESPIRATORY PANEL MOLECULARo n 04-17-2024 RP PANEL [...] RSV B Not Detected INFLUENZAE A Normal [facility] Comment on above: Performed By: #### L 100.0500, L500.2500 #### [facility] [address] [facility] [place], [address] Urinalysis, Routine (Dipstic k)on 04-17-2024 BILIRUBIN URINE Negative Normal Negative [facility] Comment on above: Order Comment: BLADD ER TAP Performed By: #### L 100.0500, L500.2500 #### [facility] [address] [place], [address] Clarity (U) Cloudy Normal Clear [facility] Comment on above: Order Comment: BLADD ER TAP Performed By: #### L 100.0500, L500.2500 #### [facility] [address] [facility] [place], [address] Color (U) Yellow Normal Yellow [facility] Comment on above: Order Comment: BLADD ER TAP Performed By: #### L 100.0500, L500.2500 #### [facility] [address] [place], [address] GLUCOSE, UR Normal Normal Normal [facility] Comment on above: Order Comment: BLADD ER TAP Performed By: #### L 100.0500, L500.2500 #### [facility] [address] [place], [address] KETONE UR Negative Normal Negative [facility] Comment on above: Order Comment: BLADD ER TAP Performed By: #### L 100.0500, L500.2500 #### [facility] [address] [place], [address] LEUK ESTERASE 100 /ul Abnormal Negative [facility] Comment on above: Order Comment: BLADD ER TAP Performed By: #### L 100.0500, L500.2500 #### [facility] [address] [place], [address] Nitrite Ql (U) Positive Abnormal Negative [facility] Comment on above: Order Comment: BLADD ER TAP Performed By: #### L 100.0500, L500.2500 #### [facility] [address] [place], [address] OCCULT BLOOD-UR 10 /ul Abnormal Negative [facility] Comment on above: Order Comment: BLADD ER TAP Performed By: #### L 100.0500, L500.2500 #### [facility] [address] [place], [address] pH UR 8.0 Normal 5.0 - 8.0 [facility] Comment on above: Order Comment: BLADD ER TAP Performed By: #### L 100.0500, L500.2500 #### [facility] [address] [place], [address] PROT DIPSTX 30 mg/dl Abnormal Negative [facility] Comment on above: Order Comment: BLADD ER TAP Performed By: #### L 100.0500, L500.2500 #### [facility] [address] [place], [address] SP.GR. DIPSTX 1.010 Normal 1.002-1.030 [facility] Comment on above: Order Comment: BLADD ER TAP Performed By: #### L 100.0500, L500.2500 #### [facility] [address] [place], [address] UROBILI 1 mg/dl Abnormal Normal [facility] Comment on above: Order Comment: BLADD ER TAP Performed By: #### L 100.0500, L500.2500 #### [facility] [address] [place], [address] Basic Metabolic Profile (BMP )on 03-11-2024 BUN/CRE 18.8 RATIO Normal 10-20 [facility] Comment on above: Order Comment: 103.1 Performed By: #### L 500.2500 #### [facility] [address] [place], [address] CA,Total 9.9 mg/dL Normal 8.5-10.1 [facility] Comment on above: Order Comment: 103.1 Performed By: #### L 500.2500 #### [facility] [address] [place], [address] Chloride [Moles/Vol] 99 mmol/L Normal 98-107 [facility] Comment on above: Order Comment: 103.1 Performed By: #### L 500.2500 #### [facility] [address] [place], [address] CO2 [Moles/Vol] 32.0 mmol/L Normal 21.0-32.0 [facility] Comment on above: Order Comment: 103.1 Performed By: #### L 500.2500 #### [facility] [address] [place], [address] Creatinine [Mass/Vol] 0.85 mg/dL Normal 0.55-1.02 [facility] Comment on above: Order Comment: 103.1 Result Comment: The validity of the calculated GFR GFRAA in patients over 70 years has not been determined. Clinical correlation is essential. Performed By: #### L 500.2500 #### [facility] [address] [place], [address] EST GFR - AA 82 mL/min Normal >60 [facility] Comment on above: Order Comment: 103.1 Result Comment: Afri can [place] GFR Calc Performed By: #### L 500.2500 #### [facility] [address] [place], [address] GAP 5 Normal 5-15 [facility] Comment on above: Order Comment: 103.1 Performed By: #### L 500.2500 #### [facility] [address] [place], [address] GFR/1.73 sq M.predicted among non-blacks MDRD (S/P/Bld) [Vol rate/Area] 68 mL/min/{1.73_m2} Normal >60 [facility] Comment on above: Order Comment: 103.1 Result Comment: Non- GFR Calc Performed By: #### L 500.2500 #### [facility] [address] [place], [address] Glucose [Mass/Vol] 89 mg/dL Normal 74-106 [facility] Comment on above: Order Comment: 103.1 Performed By: #### L 500.2500 #### [facility] [address] [place], [address] Potassium [Moles/Vol] 3.8 mmol/L Normal 3.5-5.1 [facility] Comment on above: Order Comment: 103.1 Performed By: #### L 500.2500 #### [facility] [address] [place], [address] Sodium [Moles/Vol] 136 mmol/L Normal 136-145 [facility] Comment on above: Order Comment: 103.1 Performed By: #### L 500.2500 #### [facility] [address] [place], [address] Urea nitrogen [Mass/Vol] 16 mg/dL Normal 7-18 [facility] Comment on above: Order Comment: 103.1 Performed By: #### L 500.2500 #### [facility] [address] [place], [address] Thyroid Stim Hormone (TSH)on 02-09-2024 TSH 1.120 uIU/mL Normal 0.358-3.740 [facility] Comment on above: Order Comment: 103.1 Performed By: #### L 100.0500, L500.2500 #### [facility] [address] [place], [address] Basic Metabolic Profile (BMP )on 02-02-2024 BUN/CRE 19.2 RATIO Normal 10-20 [facility] Comment on above: Order Comment: 103.1 Performed By: #### L 100.4500, L100.0500, L500.2500 #### [facility] [address] [place], [address] CA,Total 9.4 mg/dL Normal 8.5-10.1 [facility] Comment on above: Order Comment: 103.1 Performed By: #### L 100.4500, L100.0500, L500.2500 #### [facility] [address] [place], [address] Chloride [Moles/Vol] 102 mmol/L Normal 98-107 [facility] Comment on above: Order Comment: 103.1 Performed By: #### L 100.4500, L100.0500, L500.2500 #### [facility] [address] [place], [address] CO2 [Moles/Vol] 32.0 mmol/L Normal 21.0-32.0 [facility] Comment on above: Order Comment: 103.1 Performed By: #### L 100.4500, L100.0500, L500.2500 #### [facility] [address] [place], [address] Creatinine [Mass/Vol] 0.78 mg/dL Normal 0.55-1.02 [facility] Comment on above: Order Comment: 103.1 Result Comment: The validity of the calculated GFR GFRAA in patients over 70 years has not been determined. Clinical correlation is essential. Performed By: #### L 100.4500, L100.0500, L500.2500 #### [facility] [address] [place], [address] EST GFR - AA 90 mL/min Normal >60 [facility] Comment on above: Order Comment: 103.1 Result Comment: Afri can [place] GFR Calc Performed By: #### L 100.4500, L100.0500, L500.2500 #### [facility] [address] [place], [address] GAP 4 Low 5-15 [facility] Comment on above: Order Comment: 103.1 Performed By: #### L 100.4500, L100.0500, L500.2500 #### [facility] [address] [place], [address] GFR/1.73 sq M.predicted among non-blacks MDRD (S/P/Bld) [Vol rate/Area] 74 mL/min/{1.73_m2} Normal >60 [facility] Comment on above: Order Comment: 103.1 Result Comment: Non- GFR Calc Performed By: #### L 100.4500, L100.0500, L500.2500 #### [facility] [address] [place], [address] Glucose [Mass/Vol] 80 mg/dL Normal 74-106 [facility] Comment on above: Order Comment: 103.1 Performed By: #### L 100.4500, L100.0500, L500.2500 #### [facility] [address] [place], [address] Potassium [Moles/Vol] 3.9 mmol/L Normal 3.5-5.1 [facility] Comment on above: Order Comment: 103.1 Performed By: #### L 100.4500, L100.0500, L500.2500 #### [facility] [address] [place], [address] Sodium [Moles/Vol] 138 mmol/L Normal 136-145 [facility] Comment on above: Order Comment: 103.1 Performed By: #### L 100.4500, L100.0500, L500.2500 #### [facility] [address] [place], [address] Urea nitrogen [Mass/Vol] 15 mg/dL Normal 7-18 [facility] Comment on above: Order Comment: 103.1 Performed By: #### L 100.4500, L100.0500, L500.2500 #### [facility] [address] [place], [address] CBC-Complete Blood Cnt No Di ffon 02-02-2024 Erythrocyte distribution width (RBC) [Ratio] 13.9 % Normal 11.6-14.6 [facility] Comment on above: Performed By: #### L 100.4500, L100.0500, L500.2500 #### [facility] [address] [place], [address] Hematocrit (Bld) [Volume fraction] 37.2 % Normal 37-47 [facility] Comment on above: Performed By: #### L 100.4500, L100.0500, L500.2500 #### [facility] [address] [place], [address] Hemoglobin (Bld) [Mass/Vol] 12.1 g/dL Normal 12.0-15.0 [facility] Comment on above: Performed By: #### L 100.4500, L100.0500, L500.2500 #### [facility] [address] [place], [address] MCH (RBC) [Entitic mass] 28.2 pg Normal 27.0-32.0 [facility] Comment on above: Performed By: #### L 100.4500, L100.0500, L500.2500 #### [facility] [address] [place], [address] MCHC (RBC) [Mass/Vol] 32.5 g/dL Normal 32-36 [facility] Comment on above: Performed By: #### L 100.4500, L100.0500, L500.2500 #### [facility] [address] [place], [address] MCV (RBC) [Entitic vol] 86.7 fL Normal 81-99 [facility] Comment on above: Performed By: #### L 100.4500, L100.0500, L500.2500 #### [facility] [address] [place], [address] Platelet mean volume (Bld) [Entitic vol] 10.3 fL Normal 6.2-12.0 [facility] Comment on above: Performed By: #### L 100.4500, L100.0500, L500.2500 #### [facility] [address] [place], [address] Platelets (Bld) [#/Vol] 87 10*3/uL Low 150-450 [facility] Comment on above: Performed By: #### L 100.4500, L100.0500, L500.2500 #### [facility] [address] [place], [address] RBC (Bld) [#/Vol] 4.29 10*6/uL Normal 4.2-5.4 [facility] Comment on above: Performed By: #### L 100.4500, L100.0500, L500.2500 #### [facility] [address] [place], [address] RDW SD 44.1 fl High 35.1-43.9 [facility] Comment on above: Performed By: #### L 100.4500, L100.0500, L500.2500 #### [facility] [address] [place], [address] WBC (Bld) [#/Vol] 4.7 10*3/uL Normal 4.4-11.0 [facility] Comment on above: Performed By: #### L 100.4500, L100.0500, L500.2500 #### [facility] [address] [place], [address] Differential Commenton 02-01 SMEAR COMMENT Normal [facility] Comment on above: Result Comment: NORM ACYTIC NORMACHROMIC MODERATELY DECREASED PLATELETS Performed By: #### L 100.4500, L100.0500, L500.2500 #### [facility] [address] [place], [address] Urine Cultureon 01-15-2024 URC Klebsiella pneumonia e sp pneum [place] Count >100,000 Klebsiella pneumoniae sp pneum: REACTION [...] Islt GERMAN <=1 S TMP SMX Islt GERMNA <=20 S Normal [facility] Comment on above: Performed By: #### L 400.0001, M100.2200 #### [facility] [address] [place], [address] Urinalysis, Completeon 01-12 BACTERIA 2+ /hpf Normal None Seen [facility] Comment on above: Order Comment: CLEAN CATCH Performed By: #### L 400.0001, M100.2200 #### [facility] [address] [place], [address] EPI,SQUAMOUS 0-5 SEEN Normal 5-10 [facility] Comment on above: Order Comment: CLEAN CATCH Performed By: #### L 400.0001, M100.2200 #### [facility] [address] [place], [address] RBC 0-5 SEEN Normal 0-5 [facility] Comment on above: Order Comment: CLEAN CATCH Performed By: #### L 400.0001, M100.0 #### [facility] [address] [place], [address] WBC >100 SEEN Normal 0-5 [facility] Comment on above: Order Comment: CLEAN CATCH Performed By: #### L 400.0001, M100.2200 #### [facility] [address] [place], [address] Mucus Ql (Urine sed) 0 SEEN Normal [facility] Comment on above: Order Comment: CLEAN CATCH Performed By: #### L 400.0001, M100.2200 #### [facility] [address] [place], [address] Urine Cultureon 01-04-2024 URC Klebsiella pneumonia e sp pneum [place] Count >100,000 Klebsiella pneumoniae sp pneum: REACTION [...] TMP SMX Islt GERMAN <=20 S Normal [facility] Comment on above: Performed By: #### L 400.0001, M100.2200 #### [facility] [address] [place], [address] Urinalysis, Completeon 01-01 EPI,SQUAMOUS 0-5 SEEN Normal 5-10 [facility] Comment on above: Order Comment: CLEAN CATCH Performed By: #### L 400.0001, M100.2200 #### [facility] [address] [place], [address] BACTERIA 2+ /hpf Normal None Seen [facility] Comment on above: Order Comment: CLEAN CATCH Performed By: #### L 400.0001, M100.0 #### [facility] [address] [place], [address] EPI,TRANSITION 0-5 SEEN Normal 0-5 [facility] Comment on above: Order Comment: CLEAN CATCH Performed By: #### L 400.0001, M100.2200 #### [facility] [address] [place], [address] WBC 50-100 SEEN Normal 0-5 [facility] Comment on above: Order Comment: CLEAN CATCH Performed By: #### L 400.0001, M100.2200 #### [facility] [address] [place], [address] Mucus Ql (Urine sed) 0 SEEN Normal [facility] Comment on above: Order Comment: CLEAN CATCH Performed By: #### L 400.0001, M100.2200 #### [facility] [address] [place], [address] RBC 0 SEEN Normal 0-5 [facility] Comment on above: Order Comment: CLEAN CATCH Performed By: #### L 400.0001, #### [facility] [address] [place], [address] Thyroid Stim Hormone (TSH)on 12-29-2023 TSH 0.328 uIU/mL Low 0.358-3.740 [facility] Comment on above: Order Comment: 103.1 Performed By: #### L 501.9520 #### [facility] [address] [place], [address] CBC-Complete Blood Cnt No Di ffon 11-17-2023 Erythrocyte distribution width (RBC) [Ratio] 18.2 % High 11.6-14.6 [facility] Comment on above: Order Comment: 103-1 Performed By: #### L 400.0001, #### [facility] [address] [place], [address] Hematocrit (Bld) [Volume fraction] 37.9 % Normal 37-47 [facility] Comment on above: Order Comment: 103-1 Performed By: #### L 400.0001, #### [facility] [address] [place], [address] Hemoglobin (Bld) [Mass/Vol] 12.2 g/dL Normal 12.0-15.0 [facility] Comment on above: Order Comment: 103-1 Performed By: #### L 400.0001, #### [facility] [address] [place], [address] MCH (RBC) [Entitic mass] 28.1 pg Normal 27.0-32.0 [facility] Comment on above: Order Comment: 103-1 Performed By: #### L 400.0001, #### [facility] [address] [place], [address] MCHC (RBC) [Mass/Vol] 32.2 g/dL Normal 32-36 [facility] Comment on above: Order Comment: 103-1 Performed By: #### L 400.0001, #### [facility] [address] [place], [address] MCV (RBC) [Entitic vol] 87.3 fL Normal 81-99 [facility] Comment on above: Order Comment: 103-1 Performed By: #### L 400.0001, #### [facility] [address] [place], [address] Platelet mean volume (Bld) [Entitic vol] 10.6 fL Normal 6.2-12.0 [facility] Comment on above: Order Comment: 103-1 Performed By: #### L 400.0001, #### [facility] [address] [place], [address] Platelets (Bld) [#/Vol] 112 10*3/uL Low 150-450 [facility] Comment on above: Order Comment: 103-1 Performed By: #### L 400.0001, #### [facility] [address] [place], [address] RBC (Bld) [#/Vol] 4.34 10*6/uL Normal 4.2-5.4 [facility] Comment on above: Order Comment: 103-1 Performed By: #### L 400.0001, #### [facility] [address] [place], [address] RDW SD 58.2 fl High 35.1-43.9 [facility] Comment on above: Order Comment: 103-1 Performed By: #### L 400.0001, #### [facility] [address] [place], [address] WBC (Bld) [#/Vol] 6.8 10*3/uL Normal 4.4-11.0 [facility] Comment on above: Order Comment: 103-1 Performed By: #### L 400.0001, #### [facility] [address] [place], [address] Comprehensive Metabolic Prof ilon 11-17-2023 Albumin [Mass/Vol] 3.0 g/dL Low 3.2-5.0 [facility] Comment on above: Order Comment: 103-1 Performed By: #### L 400.0001, #### [facility] [address] [place], [address] Albumin/Globulin [Mass ratio] 0.8 {ratio} Low 0.9-2.4 [facility] Comment on above: Order Comment: 103-1 Performed By: #### L 400.0001, #### [facility] [address] [place], [address] ALK P 117 U/L Normal 45-117 [facility] Comment on above: Order Comment: 103-1 Performed By: #### L 400.0001, #### [facility] [address] [place], [address] ALT [Catalytic activity/Vol] 19 U/L Normal 13-56 [facility] Comment on above: Order Comment: 103-1 Performed By: #### L 400.0001, #### [facility] [address] [place], [address] AST [Catalytic activity/Vol] 21 U/L Normal 15-37 [facility] Comment on above: Order Comment: 103-1 Performed By: #### L 400.0001, #### [facility] [address] [place], [address] Bilirubin [Mass/Vol] 0.50 mg/dL Normal 0.20-1.00 [facility] Comment on above: Order Comment: Result Comment: For patients on eltrombopag therapy, use of Dimension [place] TBIL is not recommended. Performed By: #### L 400.0001, #### [facility] [address] [place], [address] BUN/CRE 16.9 RATIO Normal 10-20 [facility] Comment on above: Order Comment: Performed By: #### L 400.0001, #### [facility] [address] [place], [address] CA,Total 9.9 mg/dL Normal 8.5-10.1 [facility] Comment on above: Order Comment: Performed By: #### L 400.0001, #### [facility] [address] [place], [address] Chloride [Moles/Vol] 99 mmol/L Normal 98-107 [facility] Comment on above: Order Comment: Performed By: #### L 400.0001, #### [facility] [address] [place], [address] CO2 [Moles/Vol] 32.0 mmol/L Normal 21.0-32.0 [facility] Comment on above: Order Comment: Performed By: #### L 400.0001, #### [facility] [address] [place], [address] Creatinine [Mass/Vol] 0.89 mg/dL Normal 0.55-1.02 [facility] Comment on above: Order Comment: Result Comment: The validity of the calculated GFR GFRAA in patients over 70 years has not been determined. Clinical correlation is essential. Performed By: #### L 400.0001, #### [facility] [address] [place], [address] EST GFR - AA 78 mL/min Normal >60 [facility] Comment on above: Order Comment: Result Comment: Afri can [place] GFR Calc Performed By: #### L 400.0001, #### [facility] [address] [place], [address] GAP 5 Normal 5-15 [facility] Comment on above: Order Comment: Performed By: #### L 400.0001, #### [facility] [address] [place], [address] GFR/1.73 sq M.predicted among non-blacks MDRD (S/P/Bld) [Vol rate/Area] 64 mL/min/{1.73_m2} Normal >60 [facility] Comment on above: Order Comment: Result Comment: Non- GFR Calc Performed By: #### L 400.0001, #### [facility] [address] [place], [address] Globulin (S) [Mass/Vol] 3.7 g/dL Normal 2.2-4.2 [facility] Comment on above: Order Comment: Performed By: #### L 400.0001, #### [facility] [address] [place], [address] Glucose [Mass/Vol] 107 mg/dL High 74-106 [facility] Comment on above: Order Comment: Result Comment: Fast ing Glucose result from 100 to 125 mg/dL suggests IMPAIRED HOMEOSTASIS per A.D.A. criteria. Performed By: #### L 400.0001, #### [facility] [address] [place], [address] Potassium [Moles/Vol] 3.8 mmol/L Normal 3.5-5.1 [facility] Comment on above: Order Comment: Performed By: #### L 400.0001, #### [facility] [address] [place], [address] Sodium [Moles/Vol] 136 mmol/L Normal 136-145 [facility] Comment on above: Order Comment: 103-1 Performed By: #### L 400.0001, .2199 #### [facility] [address] [place], [address] T PROT 6.7 g/dL Normal 6.4-8.2 [facility] Comment on above: Order Comment: 103-1 Performed By: #### L 400.0001, #### [facility] [address] [place], [address] Urea nitrogen [Mass/Vol] 15 mg/dL Normal 7-18 [facility] Comment on above: Order Comment: 103-1 Performed By: #### L 400.0001, #### [facility] [address] [place], [address] Thyroid Stim Hormone (TSH)on 11-17-2023 TSH 4.030 uIU/mL High 0.358-3.740 [facility] Comment on above: Order Comment: 103-1 Performed By: #### L 400.0001, #### [facility] [address] [place], [address] CASE MANAGEMon 10-24-2023 CASE MANAGEM Normal [facility] CASE MANAGEM Normal [facility] CASE MANAGEM Normal [facility] CBC panel Auto (Bld)on 10-23 Erythrocyte distribution width (RBC) [Ratio] 16.3 % High 11.5-15.0 [facility] Comment on above: Order Comment: Speci men Type: BLOOD SPECIMENOrdering Facility: [facility] Address: [address] [place] [address] [place] [address] Performed By: #### 5 8410-2 ####[facility]ATORYCLIA [id number] [address] [place] Hematocrit (Bld) [Volume fraction] 35.6 % Low 36.0-46.0 [facility] Comment on above: Order Comment: Speci men Type: BLOOD SPECIMENOrdering Facility: [facility] Address: [address] [place] [address] Performed By: #### 5 8410-2 ####[facility]ATORYCLIA [id number] [place] [address] [place] Hemoglobin (Bld) [Mass/Vol] 11.6 g/dL Normal 11.5-15.5 [facility] Comment on above: Order Comment: Speci men Type: BLOOD SPECIMENOrdering Facility: [facility] Address: [address] [place] [address] Performed By: #### 5 8410-2 ####[facility]ORYCLIA [id number] [address] [place] MCH (RBC) [Entitic mass] 27.7 pg Normal 26.0-34.0 [facility] Comment on above: Order Comment: Speci men Type: BLOOD SPECIMENOrdering Facility: [facility] Address: [address] [place] [address] Performed By: #### 5 8410-2 ####[facility]ATORYCLIA [id number] [place] [address] [place] MCHC (RBC) [Mass/Vol] 32.6 g/dL Normal 30.5-36.0 [facility] Comment on above: Order Comment: Speci men Type: BLOOD SPECIMENOrdering Facility: [facility] Address: [address] [place], [place] [address] Performed By: #### 5 8410-2 ####[facility]ATORYIA [id number] [address] [place] MCV (RBC) [Entitic vol] 85.0 fL Normal 80.0-100.0 M [facility] Comment on above: Order Comment: Speci men Type: BLOOD SPECIMENOrdering Facility: [facility] Address: [address] [place] [address] Performed By: #### 5 8410-2 ####[facility]ORYCLIA [id number] [place] [id number] [place] Nucleated RBC (Bld) [#/Vol] 10*3/uL Normal <0.01 [facility] Comment on above: Order Comment: Speci men Type: BLOOD SPECIMENOrdering Facility: [facility] Address: [address] [place] [address] Performed By: #### 5 8410-2 ####[facility]ATORYCLIA [id number] [place] [address] [place] Platelet mean volume (Bld) [Entitic vol] 9.3 fL Normal 9.0-12.7 [facility] Comment on above: Order Comment: Speci men Type: BLOOD SPECIMENOrdering Facility: [facility] Address: [address] [place] [address] Performed By: #### 5 8410-2 ####[facility]ATORYCLIA [id number] [place] [address] [place] Platelets (Bld) [#/Vol] 102 10*3/uL Low 150-400 [facility] Comment on above: Order Comment: Speci men Type: BLOOD SPECIMENOrdering Facility: [facility] Address: [address] [place] [address] Performed By: #### 5 8410-2 ####[facility]ATORYCLIA [id number] [place] [address] [place] RBC (Bld) [#/Vol] 4.19 10*6/uL Normal 3.90-5.20 [facility] Comment on above: Order Comment: Speci men Type: BLOOD SPECIMENOrdering Facility: [facility] Address: [facility] [place] [address] Performed By: #### 5 8410-2 ####[facility]ATORYCLIA [id number] [place] [id number] [place] WBC (Bld) [#/Vol] 5.62 10*3/uL Normal 3.70-11.00 [facility] Comment on above: Order Comment: Speci men Type: BLOOD SPECIMENOrdering Facility: [facility] Address: [address] [place] [address] Performed By: #### 5 8410-2 ####[facility]ORYCLIA [id number] [place] [id number] [place] CNDSon 10-24-2023 CNDS Normal [facility] Comprehensive metabolic 2000 panelon 10-24-2023 Albumin [Mass/Vol] 2.8 g/dL Low 3.2-5.0 [facility] Comment on above: Order Comment: Speci men Type: BLOOD SPECIMENOrdering Facility: [facility] Address: [address] [place] [address] Performed By: #### 2 4323-8 ####[facility]ATORYCLIA [id number] [place] [address] [place] ALP [Catalytic activity/Vol] 77 U/L Normal 45-117 [facility] Comment on above: Order Comment: Speci men Type: BLOOD SPECIMENOrdering Facility: [facility] Address: [address] [place] [address] Performed By: #### 2 4323-8 ####[facility]ORATORYCLIA [id number] [place] [id number] [place] ALT [Catalytic activity/Vol] 15 U/L Normal 13-61 [facility] Comment on above: Order Comment: Speci men Type: BLOOD SPECIMENOrdering Facility: [facility] Address: [address] [place] [address] Result Comment: Resu lts may be falsely depressed after the administration of Sulfasalazine and/or Sulfapyridine. Performed By: #### 2 4323-8 ####[facility]ORATORYCLIA [id number] [place] [id number] [place] Anion gap [Moles/Vol] 5 mmol/L Normal 5-16 [facility] Comment on above: Order Comment: Speci men Type: BLOOD SPECIMENOrdering Facility: [facility] Address: [address] [place] [address] Performed By: #### 2 4323-8 ####[facility]ORATORYCLIA [id number] [place] [address] [place] AST [Catalytic activity/Vol] 23 U/L Normal 8-34 [facility] Comment on above: Order Comment: Speci men Type: BLOOD SPECIMENOrdering Facility: [facility] Address: [address] [place] [address] Result Comment: Resu lts may be falsely depressed after the administration of Sulfasalazine and/or Sulfapyridine. Performed By: #### 2 4323-8 ####[facility]ATORYCLIA [id number] [place] [address] [place] Bilirubin [Mass/Vol] 0.6 mg/dL Normal 0.2-1.0 [facility] Comment on above: Order Comment: Speci men Type: BLOOD SPECIMENOrdering Facility: [facility] Address: [address] [place] [address] Performed By: #### 2 4323-8 ####[facility]ORATORYCLIA [id number] [place] [address] [place] Calcium [Mass/Vol] 10.0 mg/dL Normal 8.5-10.5 [facility] Comment on above: Order Comment: Speci men Type: BLOOD SPECIMENOrdering Facility: [facility] Address: [address] [place] [address] Performed By: #### 2 4323-8 ####[facility]ORATORYCLIA [id number] [place] [address] [place] Chloride [Moles/Vol] 106 mmol/L Normal 98-107 [facility] Comment on above: Order Comment: Speci men Type: BLOOD SPECIMENOrdering Facility: [facility] Address: [address] [place] [address] Performed By: #### 2 4323-8 ####[facility]ORATORYCLIA [id number] [place] [address] [place] CO2 [Moles/Vol] 25 mmol/L Normal 21-32 [facility] Comment on above: Order Comment: Speci men Type: BLOOD SPECIMENOrdering Facility: [facility] Address: [address] [place] [address] Performed By: #### 2 4323-8 ####[facility]ATORYCLIA [id number] [place] [address] [place] Creatinine [Mass/Vol] 0.70 mg/dL Normal 0.51-0.95 [facility] Comment on above: Order Comment: Speci men Type: BLOOD SPECIMENOrdering Facility: [facility] Address: [address] [place] [address] Result Comment: Linn ents receiving either N-Acetylcysteine (NAC) or Metamizole prior to venipuncture, may have falsely depressed results. Performed By: #### 2 4323-8 ####[facility]ATORYCLIA [id number] [address] Creatinine and Glomerular filtration rate.predicted panel (S/P/Bld) 85 mL/min/1.73m??? Normal >=60 [facility] Comment on above: Order Comment: Speci men Type: BLOOD SPECIMENOrdering Facility: [facility] Address: [address] [place] [address] Result Comment: Esme mated Glomerular Filtration Rate [...] actual GFR. Performed By: #### 2 4323-8 ####[facility]ATORYCLIA [id number] [place] [address] [place] Glucose [Mass/Vol] 71 mg/dL Normal 70-100 [facility] Comment on above: Order Comment: Speci men Type: BLOOD SPECIMENOrdering Facility: [facility] Address: [address] [place] [id number] Result Comment: The [place] Diabetes Association (ADA) provides guidance for cutoff [...] Standards of Medical Care in Diabetes 2016, [place] Diabetes Association. Diabetes Care. 2016.39(Suppl 1).Results may be falsely elevated after the administration of Sulfapyridine.Results may be falsely depressed after the administration of Sulfasalazine. Performed By: #### 2 4323-8 ####[facility]ORATORYCLIA [id number] [place] [address] [place] Potassium [Moles/Vol] 4.5 mmol/L Normal 3.5-5.1 [facility] Comment on above: Order Comment: Speci men Type: BLOOD SPECIMENOrdering Facility: [facility] Address: [address] [place] [address] Performed By: #### 2 4323-8 ####[facility]ORATORYCLIA [id number] [place] [id number] [place] Protein [Mass/Vol] 5.8 g/dL Low 6.0-8.5 [facility] Comment on above: Order Comment: Speci men Type: BLOOD SPECIMENOrdering Facility: [facility] Address: [address] [place] [address] Performed By: #### 2 4323-8 ####[facility]ORATORYCLIA [id number] [place] [address] [place] Sodium [Moles/Vol] 136 mmol/L Normal 136-145 [facility] Comment on above: Order Comment: Speci men Type: BLOOD SPECIMENOrdering Facility: [facility] Address: [address] [place] [address] Performed By: #### 2 4323-8 ####[facility]ORATORYCLIA [id number] [place] [address] [place] Urea nitrogen [Mass/Vol] 8 mg/dL Normal 10-02 [facility] Comment on above: Order Comment: Speci men Type: BLOOD SPECIMENOrdering Facility: [facility] Address: [address] [place] [address] [place] [address] Performed By: #### 2 4323-8 ####[facility]ORATORYCLIA [id number] [place] [address] [place] [place] THERAPY NTon 10-24-2023 THERAPY NT Normal [facility] ALLIED HEALTHon 10-23-2023 ALLIED HEALTH Normal [facility] AST SerPl-cCncon 10-23-2023 AST [Catalytic activity/Vol] 21 U/L Normal [facility] Comment on above: Order Comment: Speci men Type: BLOOD SPECIMENOrdering Facility: [facility] Address: [address] [place] [address] Result Comment: Resu lts may be falsely depressed after the administration of Sulfasalazine and/or Sulfapyridine. Performed By: #### 1 920-8, 53338-8, 2156-08 ####[facility] LABORATORYCLIA [id number] [place] [id number] [place] Basic metabolic 2000 panelon 10-23-2023 Anion gap [Moles/Vol] 5 mmol/L Normal 07-23 [facility] Comment on above: Order Comment: Speci men Type: BLOOD SPECIMENOrdering Facility: [facility] Address: [address] [place] [address] Performed By: #### 1 920-8, 14675-1, 2156-08 ####[facility]ORATORYCLIA [id number] [place] [id number] [place] Calcium [Mass/Vol] 10.0 mg/dL Normal 8.5-10.5 [facility] Comment on above: Order Comment: Speci men Type: BLOOD SPECIMENOrdering Facility: [facility] Address: [address] [place], [place] [address] Performed By: #### 1 920-8, 77411-1, 2156-08 ####[facility]ATORYCLIA [id number] [place] [id number] [place] Chloride [Moles/Vol] 105 mmol/L Normal 98-107 [facility] Comment on above: Order Comment: Speci men Type: BLOOD SPECIMENOrdering Facility: [facility] Address: [address] [place] [address] Performed By: #### 1 920-8, 90188-4, 2156-08 ####[facility]ATORYCLIA [id number] [place] [id number] [place] CO2 [Moles/Vol] 24 mmol/L Normal 21-32 [facility] Comment on above: Order Comment: Speci men Type: BLOOD SPECIMENOrdering Facility: [facility] Address: [address] [place] [address] Performed By: #### 1 920-8, 12138-7, 2156-08 ####[facility]ORATORYCLIA [id number] [place] [id number] [place] Creatinine [Mass/Vol] 0.74 mg/dL Normal 0.51-0.95 [facility] Comment on above: Order Comment: Speci men Type: BLOOD SPECIMENOrdering Facility: [facility] Address: [address] [place] [address] Result Comment: Linn ents receiving either N-Acetylcysteine (NAC) or Metamizole prior to venipuncture, may have falsely depressed results. Performed By: #### 1 920-8, 79525-4, 2156-08 ####[facility]ORATORYCLIA [id number] [place] [address] [place] Creatinine and Glomerular filtration rate.predicted panel (S/P/Bld) 80 mL/min/1.73m??? Normal >=60 [facility] Comment on above: Order Comment: Speci men Type: BLOOD SPECIMENOrdering Facility: [facility] Address: [address] [place] [place] [id number] Result Comment: Esme mated Glomerular Filtration Rate [...] actual GFR. Performed By: #### 1 920-8, 26969-1, 2156-08 ####[facility]ATORYCLIA [id number] [place] [id number] [place] Glucose [Mass/Vol] 71 mg/dL Normal 70-100 [facility] Comment on above: Order Comment: Brady men Type: BLOOD SPECIMENOrdering Facility: [facility] Address: [address] [place] [address] Result Comment: [place] Diabetes Association (ADA) provides guidance for cutoff [...] Standards of Medical Care in Diabetes 2016, [place] Diabetes Association. Diabetes Care. 2016.39(Suppl 1).Results may be falsely elevated after the administration of Sulfapyridine.Results may be falsely depressed after the administration of Sulfasalazine. Performed By: #### 1 920-8, 33621-7, 2156-08 ####[facility]ATORYCLIA [id number] [place] [id number] [place] Potassium [Moles/Vol] 3.9 mmol/L Normal 3.5-5.1 [facility] Comment on above: Order Comment: Speci men Type: BLOOD SPECIMENOrdering Facility: [facility] Address: [address] [place] [address] Performed By: #### 1 920-8, 32713-1, 2156-08 ####[facility]ATORYCLIA [id number] [place] [address] [place] Sodium [Moles/Vol] 134 mmol/L Low 136-145 [facility] Comment on above: Order Comment: Speci men Type: BLOOD SPECIMENOrdering Facility: [facility] Address: [address] [place] [address] Performed By: #### 1 920-8, 24930-1, 2156-08 ####[facility]ATORYCLIA [id number] [place] Urea nitrogen [Mass/Vol] 9 mg/dL Normal 7- [facility] Comment on above: Order Comment: Speci men Type: BLOOD SPECIMENOrdering Facility: [facility] Address: [address] [place], [place] [address] Performed By: #### 1 920-8, 21106-2, 2156-08 ####[facility]ATORYCLIA [id number] [place] [id number] [place] CASE MANAGEMon 10-23-2023 CASE MANAGEM Normal [facility] CBC panel Auto (Bld)on 10-22 Erythrocyte distribution width (RBC) [Ratio] 16.4 % High 11.5-15.0 [facility] Comment on above: Order Comment: Speci men Type: BLOOD SPECIMENOrdering Facility: [facility] Address: [address] [place], [place] [address] Performed By: #### 5 8410-2 ####[facility]ORATORYCLIA [id number] [place] [id number] [place] Hematocrit (Bld) [Volume fraction] 36.8 % Normal 36.0-46.0 [facility] Comment on above: Order Comment: Speci men Type: BLOOD SPECIMENOrdering Facility: [facility] Address: [address] [place] [address] Performed By: #### 5 8410-2 ####[facility]ATORYCLIA [id number] [address] [place] Hemoglobin (Bld) [Mass/Vol] 11.7 g/dL Normal 11.5-15.5 [facility] Comment on above: Order Comment: Speci men Type: BLOOD SPECIMENOrdering Facility: [facility] Address: [address] [place] [address] Performed By: #### 5 8410-2 ####[facility]ATORYCLIA [id number] [address] [place] MCH (RBC) [Entitic mass] 27.4 pg Normal 26.0-34.0 [facility] Comment on above: Order Comment: Speci men Type: BLOOD SPECIMENOrdering Facility: [facility] Address: [address] [place] [address] Performed By: #### 5 8410-2 ####[facility]ATORYCLIA [id number] [address] MCHC (RBC) [Mass/Vol] 31.8 g/dL Normal 30.5-36.0 [facility] Comment on above: Order Comment: Speci men Type: BLOOD SPECIMENOrdering Facility: [facility] Address: [address] [place] [address] Performed By: #### 5 8410-2 ####[facility]ATORYCLIA [id number] [address] [place] MCV (RBC) [Entitic vol] 86.2 fL Normal 80.0-100.0 M [facility] Comment on above: Order Comment: Speci men Type: BLOOD SPECIMENOrdering Facility: [facility] Address: [address] [place] [address] Performed By: #### 5 8410-2 ####[facility]ATORYCLIA [id number] [address] [place] Nucleated RBC (Bld) [#/Vol] 10*3/uL Normal <0.01 [facility] Comment on above: Order Comment: Speci men Type: BLOOD SPECIMENOrdering Facility: [facility] Address: [address] [place] [address] Performed By: #### 5 8410-2 ####[facility]ORATORYCLIA [id number] [place] [id number] [place] Platelet mean volume (Bld) [Entitic vol] 9.2 fL Normal 9.0-12.7 [facility] Comment on above: Order Comment: Speci men Type: BLOOD SPECIMENOrdering Facility: [facility] Address: [address] [place] [address] Performed By: #### 5 8410-2 ####[facility]ATORYCLIA [id number] [place] [id number] [place] Platelets (Bld) [#/Vol] 97 10*3/uL Low 150-400 M [facility] Comment on above: Order Comment: Speci men Type: BLOOD SPECIMENOrdering Facility: [facility] Address: [address] [place] [address] Performed By: #### 5 8410-2 ####[facility]ATORYCLIA [id number] [place] [address] [place] RBC (Bld) [#/Vol] 4.27 10*6/uL Normal 3.90-5.20 [facility] Comment on above: Order Comment: Speci men Type: BLOOD SPECIMENOrdering Facility: [facility] Address: [address] [place] [address] Performed By: #### 5 8410-2 ####[facility]ATORYCLIA [id number] [place] [id number] [place] WBC (Bld) [#/Vol] 5.77 10*3/uL Normal 3.70-11.00 [facility] Comment on above: Order Comment: Speci men Type: BLOOD SPECIMENOrdering Facility: [facility] Address: [address] [place] [address] Performed By: #### 5 8410-2 ####[facility]ATORYCLIA [id number] [address] [place] Erythrocyte distribution width (RBC) [Ratio] 16.3 % High 11.5-15.0 [facility] Comment on above: Order Comment: Speci men Type: BLOOD SPECIMENOrdering Facility: [facility] Address: [address] [place] [address] Performed By: #### 5 8410-2 ####[facility]ATORYCLIA [id number] [address] [place] Hematocrit (Bld) [Volume fraction] 36.0 % Normal 36.0-46.0 [facility] Comment on above: Order Comment: Speci men Type: BLOOD SPECIMENOrdering Facility: [facility] Address: [address] [place] [address] Performed By: #### 5 8410-2 ####[facility]ATORYCLIA [id number] [address] [place] Hemoglobin (Bld) [Mass/Vol] 12.1 g/dL Normal 11.5-15.5 [facility] Comment on above: Order Comment: Speci men Type: BLOOD SPECIMENOrdering Facility: [facility] Address: [address] [place] [address] Performed By: #### 5 8410-2 ####[facility]ATORYCLIA [id number] [place] [address] [place] MCH (RBC) [Entitic mass] 28.3 pg Normal 26.0-34.0 [facility] Comment on above: Order Comment: Speci men Type: BLOOD SPECIMENOrdering Facility: [facility] Address: [address] [place] [address] Performed By: #### 5 8410-2 ####[facility]ATORYCLIA [id number] [address] [place] MCHC (RBC) [Mass/Vol] 33.6 g/dL Normal 30.5-36.0 [facility] Comment on above: Order Comment: Speci men Type: BLOOD SPECIMENOrdering Facility: [facility] Address: [address] [place] [address] Performed By: #### 5 8410-2 ####[facility]ATORYCLIA [id number] [place] [id number] [facility] MCV (RBC) [Entitic vol] 84.1 fL Normal 80.0-100.0 M [facility] Comment on above: Order Comment: Speci men Type: BLOOD SPECIMENOrdering Facility: [facility] Address: [address] [place] [address] Performed By: #### 5 8410-2 ####[facility]ATORYCLIA [id number] [address] OF [facility] Nucleated RBC (Bld) [#/Vol] 10*3/uL Normal <0.01 [facility] Comment on above: Order Comment: Speci men Type: BLOOD SPECIMENOrdering Facility: [facility] Address: [address] [place] [address] Performed By: #### 5 8410-2 ####[facility]ORYCLIA [id number] [address] [place] Platelet mean volume (Bld) [Entitic vol] 10.0 fL Normal 9.0-12.7 [facility] Comment on above: Order Comment: Speci men Type: BLOOD SPECIMENOrdering Facility: [facility] Address: [address] [place] [address] Performed By: #### 5 8410-2 ####[facility]ATORYCLIA [id number] [address] Platelets (Bld) [#/Vol] 107 10*3/uL Low 150-400 [facility] Comment on above: Order Comment: Speci men Type: BLOOD SPECIMENOrdering Facility: [facility] Address: [address] [place] [address] Result Comment: No c lot detected. Performed By: #### 5 8410-2 ####[facility]ATORYCLIA [id number] [address] [place] RBC (Bld) [#/Vol] 4.28 10*6/uL Normal 3.90-5.20 [facility] Comment on above: Order Comment: Speci men Type: BLOOD SPECIMENOrdering Facility: [facility] Address: [address] [place] [address] Performed By: #### 5 8410-2 ####[facility]ATORYCLIA [id number] [place] [id number] [facility] WBC (Bld) [#/Vol] 6.15 10*3/uL Normal 3.70-11.00 [facility] Comment on above: Order Comment: Speci men Type: BLOOD SPECIMENOrdering Facility: [facility] Address: [address] [place] [address] Performed By: #### 5 8410-2 ####[facility]ATORYCLIA [id number] [place] [id number] [facility] CK SerPl-cCncon 10-23-2023 CK [Catalytic activity/Vol] 88 U/L Normal 28-152 [facility] Comment on above: Order Comment: Speci men Type: BLOOD SPECIMENOrdering Facility: [facility] Address: [address] [place] [address] Performed By: #### 1 920-8, 50063-4, 2157-6 ####[facility]ATORYCLIA [id number] [place] [id number] [facility] CK [Catalytic activity/Vol] Normal [facility] Comment on above: Order Comment: Speci men Type: BLOOD SPECIMENOrdering Facility: [facility] Address: [address] [place] [address] Result Comment: Unab le to assay due to interference from hemolysis. Suggest reorder as clinically indicated. Performed By: #### 2 157-6, 63175-8, 68957-4 ####[facility]ATORYCLIA [id number] [place] [id number] [facility] [place] Comprehensive metabolic 2000 panelon 10-23-2023 Albumin [Mass/Vol] 2.9 g/dL Low 3.2-5.0 [facility] Comment on above: Order Comment: Speci men Type: BLOOD SPECIMENOrdering Facility: [facility] Address: [address] [place] [address] Performed By: #### 2 157-6, 07543-4, ####[facility]ATORYCLIA [id number] [place] [address] [place] ALP [Catalytic activity/Vol] 67 U/L Normal 45-117 [facility] Comment on above: Order Comment: Speci men Type: BLOOD SPECIMENOrdering Facility: [facility] Address: [address] [place], [place] [address] Performed By: #### 2 157-6, 76978-5, ####[facility]ORATORYCLIA [id number] [place] [id number] [place] ALT [Catalytic activity/Vol] 13 U/L Normal 13-61 [facility] Comment on above: Order Comment: Speci men Type: BLOOD SPECIMENOrdering Facility: [facility] Address: [address] [place] [address] Result Comment: Resu lts may be falsely depressed after the administration of Sulfasalazine and/or Sulfapyridine. Performed By: #### 2 157-6, 15170-3, ####[facility]ATORYCLIA [id number] [place] [address] [place] Anion gap [Moles/Vol] 5 mmol/L Normal 5-16 [facility] Comment on above: Order Comment: Speci men Type: BLOOD SPECIMENOrdering Facility: [facility] Address: [address] [place] [address] Performed By: #### 2 157-6, 35284-3, ####[facility]ATORYCLIA [id number] [place] [address] [place] AST [Catalytic activity/Vol] Normal [facility] Comment on above: Order Comment: Speci men Type: BLOOD SPECIMENOrdering Facility: [facility] Address: [address] [place], [place] [address] Result Comment: Unab le to assay due to interference from hemolysis. Suggest reorder as clinically indicated.Results may be falsely depressed after the administration of Sulfasalazine and/or Sulfapyridine. Performed By: #### 2 157-6, 99715-2, ####[facility]ATORYCLIA [id number] [place] [id number] [place] Bilirubin [Mass/Vol] 0.8 mg/dL Normal 0.2-1.0 [facility] Comment on above: Order Comment: Speci men Type: BLOOD SPECIMENOrdering Facility: [facility] Address: [address] [place] [address] Performed By: #### 2 157-6, 36153-6, ####[facility]ORATORYCLIA [id number] [place] [id number] [place] Calcium [Mass/Vol] 9.9 mg/dL Normal 8.5-10.5 [facility] Comment on above: Order Comment: Speci men Type: BLOOD SPECIMENOrdering Facility: [facility] Address: [address] [place] [address] Performed By: #### 2 157-6, 03341-6, ####[facility]ATORYCLIA [id number] [place] [address] [place] Chloride [Moles/Vol] 103 mmol/L Normal 98-107 [facility] Comment on above: Order Comment: Speci men Type: BLOOD SPECIMENOrdering Facility: [facility] Address: [address] [place] [address] Performed By: #### 2 157-6, 30507-4, ####[facility]ATORYCLIA [id number] [place] [id number] [place] CO2 [Moles/Vol] 27 mmol/L Normal 21-32 [facility] Comment on above: Order Comment: Speci men Type: BLOOD SPECIMENOrdering Facility: [facility] Address: [address] [place] [address] Performed By: #### 2 157-6, 91637-8, 08387-2 ####[facility]ATORYCLIA [id number] [place] [id number] [place] Creatinine [Mass/Vol] Normal [facility] Comment on above: Order Comment: Brady smith Type: BLOOD SPECIMENOrdering Facility: [facility] Address: [address] [place] [address] Result Comment: Unab le to assay due to interference from hemolysis. Suggest reorder as clinically indicated. Performed By: #### 2 157-6, 86533-7, 35964-3 ####[facility]ATORYCLIA [id number] [place] [address] [place] Creatinine and Glomerular filtration rate.predicted panel (S/P/Bld) Normal [facility] Comment on above: Order Comment: Brady smith Type: BLOOD SPECIMENOrdering Facility: [facility] Address: [address] [place] [address] Result Comment: Esme mated Glomerular Filtration Rate [...] actual GFR. Performed By: #### 2 157-6, 86153-5, 24197-3 ####[facility]ATORYCLIA [id number] [place] [id number] [place] Glucose [Mass/Vol] 69 mg/dL Low 70-100 [facility] Comment on above: Order Comment: Brady luis Type: BLOOD SPECIMENOrdering Facility: [facility] Address: [address] [place] [address] Result Comment: The Citizen [place] Diabetes Association (ADA) provides guidance for cutoff [...] Standards of Medical Care in Diabetes 2016, [place] Diabetes Association. Diabetes Care. 2016.39(Suppl 1).Results may be falsely elevated after the administration of Sulfapyridine.Results may be falsely depressed after the administration of Sulfasalazine. Performed By: #### 2 157-6, 82779-5, ####[facility]ATORYCLIA [id number] [place] [id number] [place] Potassium [Moles/Vol] Normal [facility] Comment on above: Order Comment: Brady smith Type: BLOOD SPECIMENOrdering Facility: [facility] Address: [address] [place] [address] Result Comment: Unab le to assay due to interference from hemolysis. Suggest reorder as clinically indicated. &XA&NOTIFIED WILIAM R, HEMOLYZED K,BUN,ECREA,AST, CK Performed By: #### 2 157-6, 80125-4, ####[facility]ORATORYCLIA [id number] [place] [id number] [place] Protein [Mass/Vol] 6.0 g/dL Normal 6.0-8.5 [facility] Comment on above: Order Comment: Brady smith Type: BLOOD SPECIMENOrdering Facility: [facility] Address: [address] [place] [address] Performed By: #### 2 157-6, 52436-9, ####[facility]ATORYCLIA [id number] [place] [id number] [place] Sodium [Moles/Vol] 135 mmol/L Low 136-145 [facility] Comment on above: Order Comment: Brady smith Type: BLOOD SPECIMENOrdering Facility: [facility] Address: [address] [place], [place] [address] Performed By: #### 2 157-6, 44184-5, ####[facility]ATORYCLIA [id number] [place] [address] [place] Urea nitrogen [Mass/Vol] Normal [facility] Comment on above: Order Comment: Speci men Type: BLOOD SPECIMENOrdering Facility: [facility] Address: [address] [place] [address] Result Comment: Unab le to assay due to interference from hemolysis. Suggest reorder as clinically indicated. Performed By: #### 2 157-6, 16322-1, 79791-5 ####[facility]ORATORYCLIA [id number] [place] [address] [place] Magnesium SerPl-mCncon 10-22 Magnesium [Mass/Vol] 1.7 mg/dL Normal 1.6-2.6 [facility] Comment on above: Order Comment: Speci men Type: BLOOD SPECIMENOrdering Facility: [facility] Address: [address] [place], [place] [address] [address] Performed By: #### 2 157-6, 62905-1, 43632-7 ####[facility]ORATORYCLIA [id number] [place] [address] [place] NURSING PROGon 10-23-2023 NURSING PROG [facility] THERAPY NTon 10-23-2023 THERAPY NT [facility] THERAPY NT [facility] Basic metabolic 2000 panelon 10-22-2023 Anion gap [Moles/Vol] 7 mmol/L Normal 5-16 [facility] Comment on above: Order Comment: Speci men Type: BLOOD SPECIMENOrdering Facility: [facility] Address: [address] [place] [address] Performed By: #### 2 4321-2, 2157-6 ####[facility]ORATORYCLIA [id number] [place] [address] [place] Calcium [Mass/Vol] 10.4 mg/dL Normal 8.5-10.5 [facility] Comment on above: Order Comment: Speci men Type: BLOOD SPECIMENOrdering Facility: [facility] Address: [address] [place] [address] Performed By: #### 2 4321-2, 2156-08 ####[facility]ATORYCLIA [id number] [place] [address] [place] Chloride [Moles/Vol] 103 mmol/L Normal 98-107 [facility] Comment on above: Order Comment: Speci men Type: BLOOD SPECIMENOrdering Facility: [facility] Address: [address] [place] [address] Performed By: #### 2 432-2, 2156-08 ####[facility]ATORYCLIA [id number] [place] [id number] [place] CO2 [Moles/Vol] 28 mmol/L Normal 21-32 [facility] Comment on above: Order Comment: Speci men Type: BLOOD SPECIMENOrdering Facility: [facility] Address: [address] [place] [address] Performed By: #### 2 43203-11, 2156-08 ####[facility]ORATORYCLIA [id number] [place] [address] [place] Creatinine [Mass/Vol] 1.16 mg/dL High 0.51-0.95 [facility] Comment on above: Order Comment: Speci men Type: BLOOD SPECIMENOrdering Facility: [facility] Address: [address] [place] [address] Result Comment: Linn ents receiving either N-Acetylcysteine (NAC) or Metamizole prior to venipuncture, may have falsely depressed results. Performed By: #### 2 432-2, 2156-08 ####[facility] [facility]ATORYCLIA [id number] [place] [address] [place] Creatinine and Glomerular filtration rate.predicted panel (S/P/Bld) 47 mL/min/1.73m??? Low >=60 [facility] Comment on above: Order Comment: Speci men Type: BLOOD SPECIMENOrdering Facility: [facility] Address: [address] [place] [address] Result Comment: Esme mated Glomerular Filtration Rate [...] GFR. Performed By: #### 2 4321-, 2156-08 ####[facility] LABORATORYCLIA [id number] [place] [id number] [place] Glucose [Mass/Vol] 85 mg/dL Normal 70-100 [facility] Comment on above: Order Comment: Brady smith Type: BLOOD SPECIMENOrdering Facility: [facility] Address: [address] [place] [address] Result Comment: The [place] Diabetes Association (ADA) provides guidance for cutoff [...] Standards of Medical Care in Diabetes 2016, Citizen [place] Diabetes Association. Diabetes Care. 2016.39(Suppl 1).Results may be falsely elevated after the administration of Sulfapyridine.Results may be falsely depressed after the administration of Sulfasalazine. Performed By: #### 2 43203-11, 2156-08 ####[facility] LABORATORYCLIA [id number] [place] [id number] [place] Potassium [Moles/Vol] 3.6 mmol/L Normal 3.5-5.1 [facility] Comment on above: Order Comment: Brady smith Type: BLOOD SPECIMENOrdering Facility: [facility] Address: [address] [address] Performed By: #### 2 432-, 2156-08 ####[facility] LABORATORYCLIA [id number] [place] [address] [place] Sodium [Moles/Vol] 138 mmol/L Normal 136-145 [facility] Comment on above: Order Comment: Speci men Type: BLOOD SPECIMENOrdering Facility: [facility] Address: [address] [place], [place] [address] Performed By: #### 2 4321-2, 2156-08 ####[facility] LABORATORYCLIA [id number] [place] [address] [place] Urea nitrogen [Mass/Vol] 20 mg/dL Normal 7-26 [facility] Comment on above: Order Comment: Speci men Type: BLOOD SPECIMENOrdering Facility: [facility] Address: [address] [place] [address] Performed By: #### 2 4321-2, 2156-08 ####[facility]ORATORYCLIA [id number] [place] [address] [place] CASE MGT INIT ASSESon 2023 CASE MGT INIT ASSES Normal [facility] CK SerPl-cCncon 10-22-2023 CK [Catalytic activity/Vol] 251 U/L High 28-152 [facility] Comment on above: Order Comment: Speci men Type: BLOOD SPECIMENOrdering Facility: [facility] Address: [address] [place] [address] Performed By: #### 2 4321-2, 2156-08 ####[facility]ORATORYCLIA [id number] [place] [address] [place] THERAPY NTon 10-22-2023 THERAPY NT Normal [facility] Basic metabolic 2000 panelon 10-21-2023 Anion gap [Moles/Vol] 8 mmol/L Normal 5-16 [facility] Comment on above: Order Comment: Speci men Type: BLOOD SPECIMENOrdering Facility: [facility] Address: [address] [place] [address] Performed By: #### 2 4321-2, 2156-6, 84531-4, 55167-3 ####[facility]ORATORYCLIA [id number] [place] [id number] [place] Calcium [Mass/Vol] 11.4 mg/dL High 8.5-10.5 [facility] Comment on above: Order Comment: Speci men Type: BLOOD SPECIMENOrdering Facility: [facility] Address: [address] [place] [address] Performed By: #### 2 4321-2, 2157-6, 16351-1, 97864-6 ####[facility]ORATORYCLIA [id number] [place] [id number] [place] Chloride [Moles/Vol] 96 mmol/L Low 98-107 [facility] Comment on above: Order Comment: Speci men Type: BLOOD SPECIMENOrdering Facility: [facility] Address: [address] [place] [address] Performed By: #### 2 4321-2, 7-6, 56424-7, ####[facility]ORATORYCLIA [id number] [place] [id number] [place] CO2 [Moles/Vol] 32 mmol/L Normal 21-32 [facility] Comment on above: Order Comment: Speci men Type: BLOOD SPECIMENOrdering Facility: [facility] Address: [address] [place] [address] Performed By: #### 2 4321-2, 7-6, 99628-5, 93962-5 ####[facility] LABORATORYCLIA [id number] [place] [id number] [place] Creatinine [Mass/Vol] 1.52 mg/dL High 0.51-0.95 [facility] Comment on above: Order Comment: Speci men Type: BLOOD SPECIMENOrdering Facility: [facility] Address: [address] [place] [address] Result Comment: Linn ents receiving either N-Acetylcysteine (NAC) or Metamizole prior to venipuncture, may have falsely depressed results. Performed By: #### 2 4321-2, 2157-6, 11523-3, ####[facility]ORATORYCLIA [id number] [place] [id number] [place] Creatinine and Glomerular filtration rate.predicted panel (S/P/Bld) 34 mL/min/1.73m??? Low >=60 [facility] Comment on above: Order Comment: Brady smith Type: BLOOD SPECIMENOrdering Facility: [facility] Address: [address] [place] [address] Result Comment: Esme mated Glomerular Filtration Rate [...] GFR. Performed By: #### 2 4321-2, 2157-6, 65388-8, 52497-4 ####[facility]ORATORYCLIA [id number] [place] [id number] [place] Glucose [Mass/Vol] 102 mg/dL High 70-100 [facility] Comment on above: Order Comment: Brady smith Type: BLOOD SPECIMENOrdering Facility: [facility] Address: [address] [place] [address] Result Comment: The Citizen [place] Diabetes Association (ADA) provides guidance for cutoff [...] Standards of Medical Care in Diabetes 2016, [place] Diabetes Association. Diabetes Care. 2016.39(Suppl 1).Results may be falsely elevated after the administration of Sulfapyridine.Results may be falsely depressed after the administration of Sulfasalazine. Performed By: #### 2 4321-2, 2156-08, 76023-9, ####[facility]ORATORYCLIA [id number] [place] [id number] [place] Potassium [Moles/Vol] 4.3 mmol/L Normal 3.5-5.1 [facility] Comment on above: Order Comment: Speci men Type: BLOOD SPECIMENOrdering Facility: [facility] Address: [address] [place] [address] Performed By: #### 2 4321-2, 2156-08, 86422-0, ####[facility]ORATORYCLIA [id number] [place] [id number] [place] Sodium [Moles/Vol] 136 mmol/L Normal 136-145 [facility] Comment on above: Order Comment: Speci men Type: BLOOD SPECIMENOrdering Facility: [facility] Address: [address] [place] [address] Performed By: #### 2 4321-2, 2156-08, 72925-3, ####[facility]ORATORYCLIA [id number] [place] [id number] [place] Urea nitrogen [Mass/Vol] 22 mg/dL Normal 7-26 [facility] Comment on above: Order Comment: Speci men Type: BLOOD SPECIMENOrdering Facility: [facility] Address: [address] [place] [address] Performed By: #### 2 4321-2, 6, 15687-3, 52258-1 ####[facility]ORATORYCLIA [id number] [place] [id number] [place] CBC W Auto Differential pane l (Bld)on 10-21-2023 Basophils (Bld) [#/Vol] 10*3/uL Normal <0.11 M [facility] Comment on above: Order Comment: Speci men Type: BLOOD SPECIMENOrdering Facility: [facility] Address: [address] [place] [address] Performed By: #### 5 7021-8 ####[facility]ORATORYCLIA [id number] [place] [address] [place] Basophils/100 WBC (Bld) 0.1 % Normal [facility] Comment on above: Order Comment: Speci men Type: BLOOD SPECIMENOrdering Facility: [facility] Address: [address] [place] [address] Performed By: #### 5 7021-8 ####[facility]ORATORYCLIA [id number] [place] [address] [place] Differential cell count method Nom (Bld) Auto Normal [facility] Comment on above: Order Comment: Speci men Type: BLOOD SPECIMENOrdering Facility: [facility] Address: [address] [place] [address] Performed By: #### 5 7021-8 ####[facility]ORATORYCLIA [id number] [place] [address] [place] Eosinophils (Bld) [#/Vol] 0.06 10*3/uL Normal <0.46 [facility] Comment on above: Order Comment: Speci men Type: BLOOD SPECIMENOrdering Facility: [facility] Address: [address] [place] [address] Performed By: #### 5 7021-8 ####[facility] LABORATORYCLIA [id number] [address] [place] Eosinophils/100 WBC (Bld) 0.4 % Normal [facility] Comment on above: Order Comment: Speci men Type: BLOOD SPECIMENOrdering Facility: [facility] Address: [address] [place] [address] Performed By: #### 5 7021-8 ####[facility]ORATORYCLIA [id number] [address] [place] Erythrocyte distribution width (RBC) [Ratio] 16.1 % High 11.5-15.0 [facility] Comment on above: Order Comment: Speci men Type: BLOOD SPECIMENOrdering Facility: [facility] Address: [address] [place] [address] Performed By: #### 5 7021-8 ####[facility]ORATORYCLIA [id number] [place] [id number] [place] Hematocrit (Bld) [Volume fraction] 41.4 % Normal 36.0-46.0 [facility] Comment on above: Order Comment: Speci men Type: BLOOD SPECIMENOrdering Facility: [facility] Address: [address] [place] [address] Performed By: #### 5 7021-8 ####[facility]ORATORYCLIA [id number] [place] [address] [place] Hemoglobin (Bld) [Mass/Vol] 13.9 g/dL Normal 11.5-15.5 [facility] Comment on above: Order Comment: Speci men Type: BLOOD SPECIMENOrdering Facility: [facility] Address: [address] [place] [address] Performed By: #### 5 7021-8 ####[facility]ORATORYCLIA [id number] [place] [address] [place] Immature granulocytes (Bld) [#/Vol] 0.05 10*3/uL Normal <0.10 [facility] Comment on above: Order Comment: Speci men Type: BLOOD SPECIMENOrdering Facility: [facility] Address: [address] [place] [address] Performed By: #### 5 7021-8 ####[facility]ORATORYCLIA [id number] [place] [address] [place] Immature granulocytes/100 WBC (Bld) 0.4 % Normal [facility] Comment on above: Order Comment: Speci men Type: BLOOD SPECIMENOrdering Facility: [facility] Address: [address] [place] [address] Performed By: #### 5 7021-8 ####[facility]ORATORYCLIA [id number] [place] [id number] [place] Lymphocytes (Bld) [#/Vol] 1.52 10*3/uL Normal 1.00-4.00 [facility] Comment on above: Order Comment: Speci men Type: BLOOD SPECIMENOrdering Facility: [facility] Address: [address] [place] [address] Performed By: #### 5 7021-8 ####[facility]ORATORYCLIA [id number] [address] [place] Lymphocytes/100 WBC (Bld) 10.9 % Normal [facility] Comment on above: Order Comment: Speci men Type: BLOOD SPECIMENOrdering Facility: [facility] Address: [address] [place] [address] Performed By: #### 5 7021-8 ####[facility]ORATORYCLIA [id number] [place] [address] [place] MCH (RBC) [Entitic mass] 27.6 pg Normal 26.0-34.0 [facility] Comment on above: Order Comment: Speci men Type: BLOOD SPECIMENOrdering Facility: [facility] Address: [address] [place] [address] Performed By: #### 5 7021-8 ####[facility]ORATORYCLIA [id number] [place] [address] [place] MCHC (RBC) [Mass/Vol] 33.6 g/dL Normal 30.5-36.0 [facility] Comment on above: Order Comment: Speci men Type: BLOOD SPECIMENOrdering Facility: [facility] Address: [address] [place] [address] Performed By: #### 5 7021-8 ####[facility]ORATORYCLIA [id number] [place] [address] [place] MCV (RBC) [Entitic vol] 82.1 fL Normal 80.0-100.0 M [facility] Comment on above: Order Comment: Speci men Type: BLOOD SPECIMENOrdering Facility: [facility] Address: [address] [place] [address] Performed By: #### 5 7021-8 ####[facility]ORATORYCLIA [id number] [place] [address] [place] Monocytes (Bld) [#/Vol] 1.66 10*3/uL High <0.87 [facility] Comment on above: Order Comment: Speci men Type: BLOOD SPECIMENOrdering Facility: [facility] Address: [address] [id number] Performed By: #### 5 7021-8 ####[facility]ORATORYCLIA [id number] [place] [id number] [place] Monocytes/100 WBC (Bld) 11.9 % Normal [facility] Comment on above: Order Comment: Speci men Type: BLOOD SPECIMENOrdering Facility: [facility] Address: [address] [place] [address] Performed By: #### 5 7021-8 ####[facility]ORATORYCLIA [id number] [place] [address] [place] Neutrophils (Bld) [#/Vol] 10.67 10*3/uL High 1.45-7.50 [facility] Comment on above: Order Comment: Speci men Type: BLOOD SPECIMENOrdering Facility: [facility] Address: [address] [place] [address] Performed By: #### 5 7021-8 ####[facility]ORATORYCLIA [id number] [place] [address] [place] Neutrophils/100 WBC (Bld) 76.3 % Normal [facility] Comment on above: Order Comment: Speci men Type: BLOOD SPECIMENOrdering Facility: [facility] Address: [address] [place] [address] Performed By: #### 5 7021-8 ####[facility]ORATORYCLIA [id number] [place] [id number] [place] Nucleated RBC (Bld) [#/Vol] 10*3/uL Normal <0.01 [facility] Comment on above: Order Comment: Speci men Type: BLOOD SPECIMENOrdering Facility: [facility] Address: [address] [place] [address] Performed By: #### 5 7021-8 ####[facility]ORATORYCLIA [id number] [place] [address] [place] Nucleated RBC/100 WBC (Bld) [Ratio] 0.0 /100 WBC Normal [facility] Comment on above: Order Comment: Speci men Type: BLOOD SPECIMENOrdering Facility: [facility] Address: [address] [place] [address] Performed By: #### 5 7021-8 ####[facility]ORATORYCLIA [id number] [place] [id number] [place] Platelet mean volume (Bld) [Entitic vol] 9.4 fL Normal 9.0-12.7 [facility] Comment on above: Order Comment: Speci men Type: BLOOD SPECIMENOrdering Facility: [facility] Address: [address] [place] [address] Performed By: #### 5 7021-8 ####[facility]ORATORYCLIA [id number] [place] [id number] [place] Platelets (Bld) [#/Vol] 142 10*3/uL Low 150-400 [facility] Comment on above: Order Comment: Speci men Type: BLOOD SPECIMENOrdering Facility: [facility] Address: [address] [place] [address] Performed By: #### 5 7021-8 ####[facility] LABORATORYCLIA [id number] [place] [id number] [place] RBC (Bld) [#/Vol] 5.04 10*6/uL Normal 3.90-5.20 [facility] Comment on above: Order Comment: Speci men Type: BLOOD SPECIMENOrdering Facility: [facility] Address: [address] [place] [address] Performed By: #### 5 7021-8 ####[facility] LABORATORYCLIA [id number] [place] [id number] [place] WBC (Bld) [#/Vol] 13.97 10*3/uL High 3.70-11.00 [facility] Comment on above: Order Comment: Speci men Type: BLOOD SPECIMENOrdering Facility: [facility] Address: [address] [place], [place] [address] Performed By: #### 5 7021-8 ####[facility] LABORATORYCLIA [id number] [place] [id number] [facility] [place] CK SerPl-cCncon 10-21-2023 CK [Catalytic activity/Vol] 673 U/L High 28-152 [facility] Comment on above: Order Comment: Speci men Type: BLOOD SPECIMENOrdering Facility: [facility] Address: [address] [place] [address] Performed By: #### 2 4321-2, 2157-6, 41458-0, 15374-4 ####[facility]ORATORYCLIA [id number] [address] [place] BRAIN WO IVCONon 10-21-[address] BRAIN WO IVCON Normal [facility] CT CERVICAL SPINE WO IVCONon 10-21-2023 CT CERVICAL SPINE WO IVCON Normal [facility] ECG COMPLETEon 10-21-2023 ECG COMPLETE Normal [facility] ED PROV NOTEon 10-21-2023 ED PROV NOTE Normal [facility] HIGH SENSITIVITY TROPONIN Io n 10-21-2023 Tropinin I.cardiac panel High sensitivity method 14.3 pg/mL Normal 0.0-34.0 [facility] Comment on above: Order Comment: Speci men Type: BLOOD SPECIMENOrdering Facility: [facility] Address: [address] [place] [address] Performed By: #### H STROP ####[facility] LABORATORYCLIA [id number] [place] [id number] [facility] [place] HISTORY PHYSICALon HISTORY PHYSICAL Normal [facility] Hepatic function 2000 panelo n 10-21-2023 Albumin [Mass/Vol] 3.5 g/dL Normal 3.2-5.0 [facility] Comment on above: Order Comment: Speci men Type: BLOOD SPECIMENOrdering Facility: [facility] Address: [address] [place] [address] Performed By: #### 2 4321-2, 2156-6, 76208-7, ####[facility]ORATORYCLIA [id number] [place] [id number] [place] ALP [Catalytic activity/Vol] 96 U/L Normal 45-117 [facility] Comment on above: Order Comment: Speci men Type: BLOOD SPECIMENOrdering Facility: [facility] Address: [address] [place] [address] Performed By: #### 2 4321-2, 2156-08, 33387-1, ####[facility]ORATORYCLIA [id number] [place] [id number] [place] ALT [Catalytic activity/Vol] 19 U/L Normal 13-61 [facility] Comment on above: Order Comment: Speci men Type: BLOOD SPECIMENOrdering Facility: [facility] Address: [address] [place] [address] Result Comment: Resu lts may be falsely depressed after the administration of Sulfasalazine and/or Sulfapyridine. Performed By: #### 2 4321-2, 2156-6, 95753-5, ####[facility]ORATORYCLIA [id number] [place] [id number] [place] AST [Catalytic activity/Vol] 40 U/L High 8-34 [facility] Comment on above: Order Comment: Speci men Type: BLOOD SPECIMENOrdering Facility: [facility] Address: [address] [place] [address] Result Comment: Resu lts may be falsely depressed after the administration of Sulfasalazine and/or Sulfapyridine. Performed By: #### 2 4321-2, 2156-6, 02762-4, ####[facility]ORATORYCLIA [id number] [place] [id number] [place] Bilirubin [Mass/Vol] 1.7 mg/dL High 0.2-1.0 [facility] Comment on above: Order Comment: Speci men Type: BLOOD SPECIMENOrdering Facility: [facility] Address: [address] [place] [address] [place] [address] Performed By: #### 2 4321-2, 2157-6, 89661-9, 31672-7 ####[facility]ORATORYCLIA [id number] [place] [id number] [place] Bilirubin.conjugated [Mass/Vol] 0.5 mg/dL High 0.0-0.4 [facility] Comment on above: Order Comment: Speci men Type: BLOOD SPECIMENOrdering Facility: [facility] Address: [address] [place], [place] [address] Performed By: #### 2 4321-2, 2156-6, 65307-7, 19121-7 ####[facility]ORATORYCLIA [id number] [place] [id number] [place] Protein [Mass/Vol] 7.2 g/dL Normal 6.0-8.5 [facility] Comment on above: Order Comment: Speci men Type: BLOOD SPECIMENOrdering Facility: [facility] Address: [address] [place] [address] Performed By: #### 2 4321-2, 215-6, 16328-8, 97151-1 ####[facility]ORATORYCLIA [id number] [place] [id number] [place] Magnesium SerPl-mCncon 10-20 Magnesium [Mass/Vol] 1.4 mg/dL Low 1.6-2.6 [facility] Comment on above: Order Comment: Speci men Type: BLOOD SPECIMENOrdering Facility: [facility] Address: [address] [place], [place] [address] Performed By: #### 2 4321-2, 2157-6, 44464-2, 00588-1 ####[facility]ORATORYCLIA [id number] [place] [id number] [place] Urinalysis complete pnl Uron 10-21-2023 Urinalysis complete panel (U) Normal [facility] Comment on above: Order Comment: Speci men Type: URINE SPECIMENOrdering Facility: [facility] Address: [address] [place], [place] [address], [place] [address] Performed By: #### 2 4356-8 ####[facility] LABORATORYCLIA [id number] [place] [id number] [place] XR PELVIS 1V APon 10-21-2023 XR PELVIS 1V AP Normal [facility] CASE MANAGEMon 09-22-2023 CASE MANAGEM Normal [facility] CASE MANAGEM Normal [facility] CASE MANAGEM Normal [facility] CNDSon 09-22-2023 CNDS Normal [facility] NUTRITIONon 09-22-2023 NUTRITION Normal [facility] THERAPY NTon 09-22-2023 THERAPY NT [facility] THERAPY NT [facility] Basic metabolic 2000 panelon 09-21-2023 Anion gap [Moles/Vol] 4 mmol/L Low 5-16 [facility] Comment on above: Order Comment: Speci men Type: BLOOD SPECIMENOrdering Facility: [facility] Address: [facility] [place] [address] Performed By: #### 2 4321-2, ####[facility] LABORATORYCLIA [id number] [place] [id number] [place] Calcium [Mass/Vol] 10.3 mg/dL Normal 8.5-10.5 [facility] Comment on above: Order Comment: Speci men Type: BLOOD SPECIMENOrdering Facility: [facility] Address: [address] [place] [address] Performed By: #### 2 4321-2, ####[facility] LABORATORYCLIA [id number] [place] [id number] [place] Chloride [Moles/Vol] 96 mmol/L Low 98-107 [facility] Comment on above: Order Comment: Speci men Type: BLOOD SPECIMENOrdering Facility: [facility] Address: [address] [place] [address] Performed By: #### 2 4321-2, ####[facility] LABORATORYCLIA [id number] [place] [id number] [place] CO2 [Moles/Vol] 32 mmol/L Normal 21-32 [facility] Comment on above: Order Comment: Speci luis Type: BLOOD SPECIMENOrdering Facility: [facility] Address: [address] [place] [address] Performed By: #### 2 4321-2, ####[facility] LABORATORYCLIA [id number] [place] [id number] [place] Creatinine [Mass/Vol] 0.71 mg/dL Normal 0.51-0.95 [facility] Comment on above: Order Comment: Speci men Type: BLOOD SPECIMENOrdering Facility: [facility] Address: [address] [place] [address] Result Comment: Linn ents receiving either N-Acetylcysteine (NAC) or Metamizole prior to venipuncture, may have falsely depressed results. Performed By: #### 2 432-, ####[facility] LABORATORYCLIA [id number] [address] Creatinine and Glomerular filtration rate.predicted panel (S/P/Bld) 84 mL/min/1.73m??? Normal >=60 [facility] Comment on above: Order Comment: Brady smith Type: BLOOD SPECIMENOrdering Facility: [facility] Address: [address] [place] [address] Result Comment: Esme mated Glomerular Filtration Rate [...] actual GFR. Performed By: #### 2 4321-2, ####[facility]ORATORYCLIA [id number] [place] [id number] [place] Glucose [Mass/Vol] 83 mg/dL Normal 70-100 [facility] Comment on above: Order Comment: Jayyi men Type: BLOOD SPECIMENOrdering Facility: [facility] Address: [address] [place] [address] Result Comment: The [place] Diabetes Association (ADA) provides guidance for cutoff [...] Standards of Medical Care in Diabetes 2016, [place] Diabetes Association. Diabetes Care. 2016.39(Suppl 1).Results may be falsely elevated after the administration of Sulfapyridine.Results may be falsely depressed after the administration of Sulfasalazine. Performed By: #### 2 432-, ####[facility] LABORATORYCLIA [id number] [place] [address] [place] Potassium [Moles/Vol] 3.9 mmol/L Normal 3.5-5.1 [facility] Comment on above: Order Comment: Speci men Type: BLOOD SPECIMENOrdering Facility: [facility] Address: [address] [place] [address] Performed By: #### 2 43203-11, ####[facility]ATORYCLIA [id number] [place] [id number] [place] Sodium [Moles/Vol] 132 mmol/L Low 136-145 [facility] Comment on above: Order Comment: Speci men Type: BLOOD SPECIMENOrdering Facility: [facility] Address: [address] [place] [address] Performed By: #### 2 4320-04, ####[facility]ATORYCLIA [id number] [place] [id number] [place] Urea nitrogen [Mass/Vol] 7 mg/dL Normal 7-26 [facility] Comment on above: Order Comment: Speci men Type: BLOOD SPECIMENOrdering Facility: [facility] Address: [address] [place] [address] Performed By: #### 2 4321-2, ####[facility]ATORYCLIA [id number] [place] [id number] [place] Magnesium SerPl-mCncon 09-20 Magnesium [Mass/Vol] 1.9 mg/dL Normal 1.6-2.6 [facility] Comment on above: Order Comment: Speci men Type: BLOOD SPECIMENOrdering Facility: [facility] Address: [address] [place] [id number] Performed By: #### 2 4321-2, ####[facility]ATORYCLIA [id number] [place] [id number] [place] Basic metabolic 2000 panelon 09-20-2023 Anion gap [Moles/Vol] 4 mmol/L Low 5-16 [facility] Comment on above: Order Comment: Speci men Type: BLOOD SPECIMENOrdering Facility: [facility] Address: [address] [place] [id number] Performed By: #### 2 432-2, ####[facility]ATORYCLIA [id number] [place] [id number] [place] Calcium [Mass/Vol] 10.3 mg/dL Normal 8.5-10.5 [facility] Comment on above: Order Comment: Speci men Type: BLOOD SPECIMENOrdering Facility: [facility] Address: [address] [place] [address] Performed By: #### 2 4321-2, ####[facility]ATORYCLIA [id number] [place] [id number] [place] Chloride [Moles/Vol] 95 mmol/L Low 98-107 [facility] Comment on above: Order Comment: Speci men Type: BLOOD SPECIMENOrdering Facility: [facility] Address: [address] [place] [id number] Performed By: #### 2 4321-2, ####[facility]ATORYCLIA [id number] [place] [address] [place] CO2 [Moles/Vol] 31 mmol/L Normal 21-32 [facility] Comment on above: Order Comment: Speci men Type: BLOOD SPECIMENOrdering Facility: [facility] Address: [address] [place] [address] Performed By: #### 2 4321-2, ####[facility]ATORYCLIA [id number] [place] [address] [place] Creatinine [Mass/Vol] 0.76 mg/dL Normal 0.51-0.95 [facility] Comment on above: Order Comment: Speci men Type: BLOOD SPECIMENOrdering Facility: [facility] Address: [address] [place] [address] Result Comment: Linn ents receiving either N-Acetylcysteine (NAC) or Metamizole prior to venipuncture, may have falsely depressed results. Performed By: #### 2 43203-11, ####[facility]ATORYCLIA [id number] [address] Creatinine and Glomerular filtration rate.predicted panel (S/P/Bld) 77 mL/min/1.73m??? Normal >=60 [facility] Comment on above: Order Comment: Speci men Type: BLOOD SPECIMENOrdering Facility: [facility] Address: [address] [place] [address] Result Comment: Esme mated Glomerular Filtration Rate [...] actual GFR. Performed By: #### 2 4321-2, ####[facility]ATORYCLIA [id number] [place] [id number] [place] Glucose [Mass/Vol] 91 mg/dL Normal 70-100 [facility] Comment on above: Order Comment: Brady smith Type: BLOOD SPECIMENOrdering Facility: [facility] Address: [address] [place] [phone] Result Comment: The Citizen [place] Diabetes Association (ADA) provides guidance for cutoff [...] Standards of Medical Care in Diabetes 2016, [place] Diabetes Association. Diabetes Care. 2016.39(Suppl 1).Results may be falsely elevated after the administration of Sulfapyridine.Results may be falsely depressed after the administration of Sulfasalazine. Performed By: #### 2 432- ####[facility]ATORYCLIA [id number] [place] [address] [place] Potassium [Moles/Vol] 3.9 mmol/L Normal 3.5-5.1 [facility] Comment on above: Order Comment: Brady smith Type: BLOOD SPECIMENOrdering Facility: [facility] Address: [address] [place], [place] [address] Performed By: #### 2 432-, ####[facility]ATORYCLIA [id number] [place] [address] [place] Sodium [Moles/Vol] 130 mmol/L Low 136-145 [facility] Comment on above: Order Comment: Brady smith Type: BLOOD SPECIMENOrdering Facility: [facility] Address: [address] [place] [address] Performed By: #### 2 432-, ####[facility]ATORYCLIA [id number] [place] [id number] [place] Urea nitrogen [Mass/Vol] 9 mg/dL Normal 7-26 [facility] Comment on above: Order Comment: Speci men Type: BLOOD SPECIMENOrdering Facility: [facility] Address: [address] [place] [address] Performed By: #### 2 4321-2, 90560-5 ####[facility]ATORYCLIA [id number] [place] [id number] [place] CBC W Auto Differential pane l (Bld)on 09-20-2023 Basophils (Bld) [#/Vol] 10*3/uL Normal <0.11 [facility] Comment on above: Order Comment: Speci men Type: BLOOD SPECIMENOrdering Facility: [facility] Address: [address] [place] [address] Performed By: #### 5 7021-8 ####[facility]ORATORYCLIA [id number] [place] [address] [place] Basophils/100 WBC (Bld) 0.3 % Normal [facility] Comment on above: Order Comment: Speci men Type: BLOOD SPECIMENOrdering Facility: [facility] Address: [address] [place] [address] Performed By: #### 5 7021-8 ####[facility]ATORYCLIA [id number] [place] [address] [place] Differential cell count method Nom (Bld) Auto Normal [facility] Comment on above: Order Comment: Speci men Type: BLOOD SPECIMENOrdering Facility: [facility] Address: [address] [place] [address] Performed By: #### 5 7021-8 ####[facility]ORATORYCLIA [id number] [place] [id number] [place] Eosinophils (Bld) [#/Vol] 0.30 10*3/uL Normal <0.46 [facility] Comment on above: Order Comment: Speci men Type: BLOOD SPECIMENOrdering Facility: [facility] Address: [address] [place] [address] Performed By: #### 5 7021-8 ####[facility]ATORYCLIA [id number] [place] [address] [place] Eosinophils/100 WBC (Bld) 4.5 % Normal [facility] Comment on above: Order Comment: Speci men Type: BLOOD SPECIMENOrdering Facility: [facility] Address: [address] [place] [address] Performed By: #### 5 7021-8 ####[facility]ATORYCLIA [id number] [place] [address] [place] Erythrocyte distribution width (RBC) [Ratio] 13.2 % Normal 11.5-15.0 [facility] Comment on above: Order Comment: Speci men Type: BLOOD SPECIMENOrdering Facility: [facility] Address: [address] [place] [address] Performed By: #### 5 7021-8 ####[facility]ATORYCLIA [id number] [place] [address] [place] Hematocrit (Bld) [Volume fraction] 38.0 % Normal 36.0-46.0 [facility] Comment on above: Order Comment: Speci men Type: BLOOD SPECIMENOrdering Facility: [facility] Address: [address] [place] [address] Performed By: #### 5 7021-8 ####[facility]ORATORYCLIA [id number] [place] [address] [place] Hemoglobin (Bld) [Mass/Vol] 12.6 g/dL Normal 11.5-15.5 [facility] Comment on above: Order Comment: Speci men Type: BLOOD SPECIMENOrdering Facility: [facility] Address: [address] [place] [address] Performed By: #### 5 7021-8 ####[facility]ATORYCLIA [id number] [place] [address] [place] Immature granulocytes (Bld) [#/Vol] 10*3/uL Normal <0.10 [facility] Comment on above: Order Comment: Speci men Type: BLOOD SPECIMENOrdering Facility: [facility] Address: [address] [place] [address] Performed By: #### 5 7021-8 ####[facility]ORATORYCLIA [id number] [place] [id number] [place] Immature granulocytes/100 WBC (Bld) 0.3 % Normal [facility] Comment on above: Order Comment: Speci men Type: BLOOD SPECIMENOrdering Facility: [facility] Address: [address] [place] [address] Performed By: #### 5 7021-8 ####[facility]ATORYCLIA [id number] [place] [address] [place] Lymphocytes (Bld) [#/Vol] 1.60 10*3/uL Normal 1.00-4.00 [facility] Comment on above: Order Comment: Speci men Type: BLOOD SPECIMENOrdering Facility: [facility] Address: [address] [place] [address] Performed By: #### 5 7021-8 ####[facility]ATORYCLIA [id number] [address] [place] Lymphocytes/100 WBC (Bld) 23.9 % Normal [facility] Comment on above: Order Comment: Speci men Type: BLOOD SPECIMENOrdering Facility: [facility] Address: [address] [place] [address] Performed By: #### 5 7021-8 ####[facility]ATORYCLIA [id number] [place] [address] [place] MCH (RBC) [Entitic mass] 27.6 pg Normal 26.0-34.0 [facility] Comment on above: Order Comment: Speci men Type: BLOOD SPECIMENOrdering Facility: [facility] Address: [address] [place] [address] Performed By: #### 5 7021-8 ####[facility]ATORYCLIA [id number] [place] [id number] [place] MCHC (RBC) [Mass/Vol] 33.2 g/dL Normal 30.5-36.0 [facility] Comment on above: Order Comment: Speci men Type: BLOOD SPECIMENOrdering Facility: [facility] Address: [address] [place] [address] Performed By: #### 5 7021-8 ####[facility]ATORYCLIA [id number] [place] [address] [place] MCV (RBC) [Entitic vol] 83.2 fL Normal 80.0-100.0 [facility] Comment on above: Order Comment: Speci men Type: BLOOD SPECIMENOrdering Facility: [facility] Address: [address] [place] [address] Performed By: #### 5 7021-8 ####[facility]ATORYCLIA [id number] [place] [address] [place] Monocytes (Bld) [#/Vol] 0.70 10*3/uL Normal <0.87 [facility] Comment on above: Order Comment: Speci men Type: BLOOD SPECIMENOrdering Facility: [facility] Address: [address] [place] [address] Performed By: #### 5 7021-8 ####[facility]ATORYCLIA [id number] [address] [place] Monocytes/100 WBC (Bld) 10.4 % Normal [facility] Comment on above: Order Comment: Speci men Type: BLOOD SPECIMENOrdering Facility: [facility] Address: [address] [place] [address] Performed By: #### 5 7021-8 ####[facility]ATORYCLIA [id number] [place] [address] [place] Neutrophils (Bld) [#/Vol] 4.06 10*3/uL Normal 1.45-7.50 [facility] Comment on above: Order Comment: Speci men Type: BLOOD SPECIMENOrdering Facility: [facility] Address: [address] [place] [address] Performed By: #### 5 7021-8 ####[facility]ATORYCLIA [id number] [place] [address] [place] Neutrophils/100 WBC (Bld) 60.6 % Normal [facility] Comment on above: Order Comment: Speci men Type: BLOOD SPECIMENOrdering Facility: [facility] Address: [address] [place] [address] Performed By: #### 5 7021-8 ####[facility]ATORYCLIA [id number] [place] [address] [place] Nucleated RBC (Bld) [#/Vol] 10*3/uL Normal <0.01 [facility] Comment on above: Order Comment: Speci men Type: BLOOD SPECIMENOrdering Facility: [facility] Address: [address] [place] [address] Performed By: #### 5 7021-8 ####[facility]ORATORYCLIA [id number] [place] [address] [place] Nucleated RBC/100 WBC (Bld) [Ratio] 0.0 /100 WBC Normal [facility] Comment on above: Order Comment: Speci men Type: BLOOD SPECIMENOrdering Facility: [facility] Address: [address] [place] [address] Performed By: #### 5 7021-8 ####[facility]ATORYCLIA [id number] [place] [address] [place] Platelet mean volume (Bld) [Entitic vol] 9.9 fL Normal 9.0-12.7 [facility] Comment on above: Order Comment: Speci men Type: BLOOD SPECIMENOrdering Facility: [facility] Address: [address] [place] [address] Performed By: #### 5 7021-8 ####[facility]ATORYCLIA [id number] [place] [address] [place] Platelets (Bld) [#/Vol] 108 10*3/uL Low 150-400 [facility] Comment on above: Order Comment: Speci men Type: BLOOD SPECIMENOrdering Facility: [facility] Address: [address] [place] [address] Result Comment: No c lot detected. Performed By: #### 5 7021-8 ####[facility]ATORYCLIA [id number] [place] [id number] [facility] [place] RBC (Bld) [#/Vol] 4.57 10*6/uL Normal 3.90-5.20 [facility] Comment on above: Order Comment: Speci men Type: BLOOD SPECIMENOrdering Facility: [facility] Address: [address] [place] [address] Performed By: #### 5 7021-8 ####[facility]ORATORYCLIA [id number] [place] [id number] [facility] WBC (Bld) [#/Vol] 6.70 10*3/uL Normal 3.70-11.00 [facility] Comment on above: Order Comment: Speci men Type: BLOOD SPECIMENOrdering Facility: [facility] Address: [address] [place], [place] [address] Performed By: #### 5 7021-8 ####[facility]ATORYCLIA [id number] [place] [id number] [place] Magnesium SerPl-mCncon 09-19 Magnesium [Mass/Vol] 2.0 mg/dL Normal 1.6-2.6 [facility] Comment on above: Order Comment: Speci men Type: BLOOD SPECIMENOrdering Facility: [facility] Address: [address] [place] [address] Performed By: #### 2 4321-2, 64075-8 ####[facility]ATORYCLIA [id number] [place] [id number] [place] NURSING PROGon 09-20-2023 NURSING PROG Normal [facility] Basic metabolic 2000 panelon 09-19-2023 Anion gap [Moles/Vol] mmol/L Low 5-16 [facility] Comment on above: Order Comment: Speci men Type: BLOOD SPECIMENOrdering Facility: [facility] Address: [address] [place] [address] Performed By: #### 2 4321-2, , 3083-03 ####[facility]ORATORYCLIA [id number] [place] [address] [place] Calcium [Mass/Vol] 10.1 mg/dL Normal 8.5-10.5 [facility] Comment on above: Order Comment: Speci men Type: BLOOD SPECIMENOrdering Facility: [facility] Address: [address] [place] [address] Performed By: #### 2 4321-2, , 3083-03 ####[facility]ORATORYCLIA [id number] [place] [id number] [place] Chloride [Moles/Vol] 98 mmol/L Normal 98-107 [facility] Comment on above: Order Comment: Speci men Type: BLOOD SPECIMENOrdering Facility: [facility] Address: [address] [place] [address] Performed By: #### 2 432-2, , 3083-03 ####[facility]ATORYCLIA [id number] [place] [id number] [place] CO2 [Moles/Vol] 32 mmol/L Normal 21-32 [facility] Comment on above: Order Comment: Speci men Type: BLOOD SPECIMENOrdering Facility: [facility] Address: [address] [place] [address] Performed By: #### 2 4321-2, , 3083-03 ####[facility]ORATORYCLIA [id number] [place] [id number] [place] Creatinine [Mass/Vol] 0.96 mg/dL High 0.51-0.95 [facility] Comment on above: Order Comment: Speci men Type: BLOOD SPECIMENOrdering Facility: [facility] Address: [address] [place] [address] Result Comment: Linn ents receiving either N-Acetylcysteine (NAC) or Metamizole prior to venipuncture, may have falsely depressed results. Performed By: #### 2 4321-2, , 3083-03 ####[facility]ORATORYCLIA [id number] [address] [place] Creatinine and Glomerular filtration rate.predicted panel (S/P/Bld) 58 mL/min/1.73m??? Low >=60 [facility] Comment on above: Order Comment: Brady smith Type: BLOOD SPECIMENOrdering Facility: [facility] Address: [address] [place] [address] Result Comment: Esme mated Glomerular Filtration Rate [...] actual GFR. Performed By: #### 2 4321-2, 24333-7, 3083- ####[facility]ORATORYCLIA [id number] [place] [address] [place] Glucose [Mass/Vol] 95 mg/dL Normal 70-100 [facility] Comment on above: Order Comment: Brady smith Type: BLOOD SPECIMENOrdering Facility: [facility] Address: [address] [place] [address] Result Comment: The Citizen [place] Diabetes Association (ADA) provides guidance for cutoff [...] Standards of Medical Care in Diabetes 2016, [place] Diabetes Association. Diabetes Care. 2016.39(Suppl 1).Results may be falsely elevated after the administration of Sulfapyridine.Results may be falsely depressed after the administration of Sulfasalazine. Performed By: #### 2 4321-2, , 3083- ####[facility]ORATORYCLIA [id number] [place] [id number] [place] Potassium [Moles/Vol] 3.9 mmol/L Normal 3.5-5.1 [facility] Comment on above: Order Comment: Speci men Type: BLOOD SPECIMENOrdering Facility: [facility] Address: [address] [place] [address] Performed By: #### 2 4321-2, 09277-3, 3083-03 ####[facility]ATORYCLIA [id number] [place] [id number] [place] Sodium [Moles/Vol] 132 mmol/L Low 136-145 [facility] Comment on above: Order Comment: Speci men Type: BLOOD SPECIMENOrdering Facility: [facility] Address: [address] [place] [address] Performed By: #### 2 4321-2, , 3083-03 ####[facility]ORATORYCLIA [id number] [place] [id number] [place] Urea nitrogen [Mass/Vol] 9 mg/dL Normal 7-26 [facility] Comment on above: Order Comment: Speci men Type: BLOOD SPECIMENOrdering Facility: [facility] Address: [address] [place] [address] Performed By: #### 2 4321-2, , 3083-03 ####[facility]ORATORYCLIA [id number] [place] [id number] [place] CASE MANAGEMon 09-19-2023 CASE MANAGEM Normal [facility] CBC W Auto Differential pane l (Bld)on 09-19-2023 Basophils (Bld) [#/Vol] 10*3/uL Normal <0.11 [facility] Comment on above: Order Comment: Speci men Type: BLOOD SPECIMENOrdering Facility: [facility] Address: [address] [place] [address] Performed By: #### 5 7021-8 ####[facility]ORATORYCLIA [id number] [address] [place] Basophils/100 WBC (Bld) 0.1 % Normal [facility] Comment on above: Order Comment: Speci men Type: BLOOD SPECIMENOrdering Facility: [facility] Address: [facility] [place] [address] Performed By: #### 5 7021-8 ####[facility]ORATORYCLIA [id number] [place] [address] [facility] [place] Differential cell count method Nom (Bld) Auto Normal [facility] Comment on above: Order Comment: Speci men Type: BLOOD SPECIMENOrdering Facility: [facility] Address: [address] [place] [address] Performed By: #### 5 7021-8 ####[facility]ORATORYCLIA [id number] [address] [place] Eosinophils (Bld) [#/Vol] 0.36 10*3/uL Normal <0.46 [facility] Comment on above: Order Comment: Speci men Type: BLOOD SPECIMENOrdering Facility: [facility] Address: [address] [place] [address] Performed By: #### 5 7021-8 ####[facility]ORATORYCLIA [id number] [address] [facility] Eosinophils/100 WBC (Bld) 5.0 % Normal [facility] Comment on above: Order Comment: Speci men Type: BLOOD SPECIMENOrdering Facility: [facility] Address: [address] [place] [address] Performed By: #### 5 7021-8 ####[facility]ORATORYCLIA [id number] [address] [place] Erythrocyte distribution width (RBC) [Ratio] 13.2 % Normal 11.5-15.0 [facility] Comment on above: Order Comment: Speci men Type: BLOOD SPECIMENOrdering Facility: [facility] Address: [address] [place] [address] Performed By: #### 5 7021-8 ####[facility]ORATORYCLIA [id number] [place] [address] [place] Hematocrit (Bld) [Volume fraction] 37.8 % Normal 36.0-46.0 [facility] Comment on above: Order Comment: Speci men Type: BLOOD SPECIMENOrdering Facility: [facility] Address: [address] [place] [address] Performed By: #### 5 7021-8 ####[facility] LABORATORYCLIA [id number] [place] [address] [place] Hemoglobin (Bld) [Mass/Vol] 12.5 g/dL Normal 11.5-15.5 [facility] Comment on above: Order Comment: Speci men Type: BLOOD SPECIMENOrdering Facility: [facility] Address: [address] [place] [address] Performed By: #### 5 7021-8 ####[facility] LABORATORYCLIA [id number] [place] [address] [place] Immature granulocytes (Bld) [#/Vol] 0.03 10*3/uL Normal <0.10 [facility] Comment on above: Order Comment: Speci men Type: BLOOD SPECIMENOrdering Facility: [facility] Address: [address] [place] [address] Performed By: #### 5 7021-8 ####[facility]ORATORYCLIA [id number] [place] [address] [place] Immature granulocytes/100 WBC (Bld) 0.4 % Normal [facility] Comment on above: Order Comment: Speci men Type: BLOOD SPECIMENOrdering Facility: [facility] Address: [address] [place] [address] Performed By: #### 5 7021-8 ####[facility]ORATORYCLIA [id number] [place] [address] [place] Lymphocytes (Bld) [#/Vol] 1.42 10*3/uL Normal 1.00-4.00 [facility] Comment on above: Order Comment: Speci men Type: BLOOD SPECIMENOrdering Facility: [facility] Address: [address] [place] [address] Performed By: #### 5 7021-8 ####[facility]ORATORYCLIA [id number] [address] [place] Lymphocytes/100 WBC (Bld) 19.7 % Normal [facility] Comment on above: Order Comment: Speci men Type: BLOOD SPECIMENOrdering Facility: [facility] Address: [address] [place] [address] Performed By: #### 5 7021-8 ####[facility]ORATORYCLIA [id number] [address] [place] MCH (RBC) [Entitic mass] 27.8 pg Normal 26.0-34.0 [facility] Comment on above: Order Comment: Speci men Type: BLOOD SPECIMENOrdering Facility: [facility] Address: [address] [place] [address] Performed By: #### 5 7021-8 ####[facility]ORATORYCLIA [id number] [address] [place] MCHC (RBC) [Mass/Vol] 33.1 g/dL Normal 30.5-36.0 [facility] Comment on above: Order Comment: Speci men Type: BLOOD SPECIMENOrdering Facility: [facility] Address: [address] [place] [address] Performed By: #### 5 7021-8 ####[facility]ORATORYCLIA [id number] [address] [place] MCV (RBC) [Entitic vol] 84.2 fL Normal 80.0-100.0 M [facility] Comment on above: Order Comment: Speci men Type: BLOOD SPECIMENOrdering Facility: [facility] Address: [address] [place] [address] Performed By: #### 5 7021-8 ####[facility]ATORYCLIA [id number] [address] [place] Monocytes (Bld) [#/Vol] 0.83 10*3/uL Normal <0.87 [facility] Comment on above: Order Comment: Speci men Type: BLOOD SPECIMENOrdering Facility: [facility] Address: [address] [place] [address] Performed By: #### 5 7021-8 ####[facility]ORATORYCLIA [id number] [place] [id number] [place] Monocytes/100 WBC (Bld) 11.5 % Normal [facility] Comment on above: Order Comment: Speci men Type: BLOOD SPECIMENOrdering Facility: [facility] Address: [address] [place] [address] Performed By: #### 5 7021-8 ####[facility]ATORYCLIA [id number] [place] [address] [place] Neutrophils (Bld) [#/Vol] 4.54 10*3/uL Normal 1.45-7.50 [facility] Comment on above: Order Comment: Speci men Type: BLOOD SPECIMENOrdering Facility: [facility] Address: [address] [place] [address] Performed By: #### 5 7021-8 ####[facility]ORATORYCLIA [id number] [address] [place] Neutrophils/100 WBC (Bld) 63.3 % Normal [facility] Comment on above: Order Comment: Speci men Type: BLOOD SPECIMENOrdering Facility: [facility] Address: [address] [place] [address] Performed By: #### 5 7021-8 ####[facility]ORATORYCLIA [id number] [place] [address] [place] Nucleated RBC (Bld) [#/Vol] 10*3/uL Normal <0.01 [facility] Comment on above: Order Comment: Speci men Type: BLOOD SPECIMENOrdering Facility: [facility] Address: [address] [place] [address] Performed By: #### 5 7021-8 ####[facility]ATORYCLIA [id number] [place] [address] [place] Nucleated RBC/100 WBC (Bld) [Ratio] 0.0 /100 WBC Normal [facility] Comment on above: Order Comment: Speci men Type: BLOOD SPECIMENOrdering Facility: [facility] Address: [address] [place] [address] Performed By: #### 5 7021-8 ####[facility]ORATORYCLIA [id number] [place] [address] [place] Platelet mean volume (Bld) [Entitic vol] 9.8 fL Normal 9.0-12.7 [facility] Comment on above: Order Comment: Speci men Type: BLOOD SPECIMENOrdering Facility: [facility] Address: [address] [place] [address] Performed By: #### 5 7021-8 ####[facility]ORATORYCLIA [id number] [place] [address] [place] Platelets (Bld) [#/Vol] 112 10*3/uL Low 150-400 [facility] Comment on above: Order Comment: Speci men Type: BLOOD SPECIMENOrdering Facility: [facility] Address: [address] [place] [address] Result Comment: No c lot detected. Performed By: #### 5 7021-8 ####[facility]ATORYCLIA [id number] [place] [address] [place] RBC (Bld) [#/Vol] 4.49 10*6/uL Normal 3.90-5.20 [facility] Comment on above: Order Comment: Speci men Type: BLOOD SPECIMENOrdering Facility: [facility] Address: [address] [place] [address] Performed By: #### 5 7021-8 ####[facility]ORATORYCLIA [id number] [place] [address] [place] WBC (Bld) [#/Vol] 7.19 10*3/uL Normal 3.70-11.00 [facility] Comment on above: Order Comment: Speci men Type: BLOOD SPECIMENOrdering Facility: [facility] Address: [address] [place], [place] [address] Performed By: #### 5 7021-8 ####[facility]ORATORYCLIA [id number] [place] [id number] [place] Magnesium [facility] 09-18 Magnesium [Mass/Vol] 1.8 mg/dL Normal 1.6-2.6 [facility] Comment on above: Order Comment: Speci men Type: BLOOD SPECIMENOrdering Facility: [facility] Address: [address] [place], [place] [address] Performed By: #### 2 4321-2, 73646-9, 3083-1 ####[facility]ATORYCLIA [id number] [place] [id number] [place] Urate [facility] Urate [Mass/Vol] 6.8 mg/dL High 2.6-6.0 [facility] Comment on above: Order Comment: Speci men Type: BLOOD SPECIMENOrdering Facility: [facility] Address: [address] [place] [address] Result Comment: Linn ents receiving Metamizole prior to venipuncture, may have falsely depressed results. Performed By: #### 2 4321-2, , 3083- ####[facility]ATORYCLIA [id number] [place] [id number] [place] Basic metabolic 2000 panelon 09-18-2023 Anion gap [Moles/Vol] 8 mmol/L Normal 5-16 [facility] Comment on above: Order Comment: Speci men Type: BLOOD SPECIMENOrdering Facility: [facility] Address: [address] [place], [place] [address] Performed By: #### 2 4321-2, ####[facility]ATORYCLIA [id number] [place] [id number] [place] Calcium [Mass/Vol] 10.6 mg/dL High 8.5-10.5 [facility] Comment on above: Order Comment: Speci men Type: BLOOD SPECIMENOrdering Facility: [facility] Address: [address] [place], [place] [address] Performed By: #### 2 4321-2, ####[facility]ATORYCLIA [id number] [place] [id number] [place] Chloride [Moles/Vol] 96 mmol/L Low 98-107 [facility] Comment on above: Order Comment: Speci men Type: BLOOD SPECIMENOrdering Facility: [facility] Address: [address] [place] [address] Performed By: #### 2 432-2, ####[facility]ATORYCLIA [id number] [place] [id number] [place] CO2 [Moles/Vol] 32 mmol/L Normal 21-32 [facility] Comment on above: Order Comment: Speci men Type: BLOOD SPECIMENOrdering Facility: [facility] Address: [address] [place] [address] Performed By: #### 2 432-2, ####[facility]ORATORYCLIA [id number] [place] [address] [place] Creatinine [Mass/Vol] 0.70 mg/dL Normal 0.51-0.95 [facility] Comment on above: Order Comment: Speci men Type: BLOOD SPECIMENOrdering Facility: [facility] Address: [address] [place] [address] Result Comment: Linn ents receiving either N-Acetylcysteine (NAC) or Metamizole prior to venipuncture, may have falsely depressed results. Performed By: #### 2 4321-2, ####[facility]ATORYCLIA [id number] [place] [id number] [place] Creatinine and Glomerular filtration rate.predicted panel (S/P/Bld) 85 mL/min/1.73m??? Normal >=60 [facility] Comment on above: Order Comment: Speci men Type: BLOOD SPECIMENOrdering Facility: [facility] Address: [address] [place] [address] [place] [address] Result Comment: Esme mated Glomerular Filtration Rate [...] actual GFR. Performed By: #### 2 4321-2, ####[facility]ATORYCLIA [id number] [place] [id number] [place] Glucose [Mass/Vol] 84 mg/dL Normal 70-100 [facility] Comment on above: Order Comment: Brady smith Type: BLOOD SPECIMENOrdering Facility: [facility] Address: [address] [place] [address] Result Comment: The [place] Diabetes Association (ADA) provides guidance for cutoff [...] Standards of Medical Care in Diabetes 2016, [place] Diabetes Association. Diabetes Care. 2016.39(Suppl 1).Results may be falsely elevated after the administration of Sulfapyridine.Results may be falsely depressed after the administration of Sulfasalazine. Performed By: #### 2 4321-2, 72076-8 ####[facility]ORATORYCLIA [id number] [place] [id number] [place] Potassium [Moles/Vol] 3.6 mmol/L Normal 3.5-5.1 [facility] Comment on above: Order Comment: Brady smith Type: BLOOD SPECIMENOrdering Facility: [facility] Address: [address] [place] [address] Performed By: #### 2 432-2, ####[facility]ORATORYCLIA [id number] [place] [id number] [place] [facility] Sodium [Moles/Vol] 136 mmol/L Normal 136-145 [facility] Comment on above: Order Comment: Speci men Type: BLOOD SPECIMENOrdering Facility: [facility] Address: [address] [place] [address] Performed By: #### 2 4321-2, ####[facility]ATORYCLIA [id number] [address] [place] Urea nitrogen [Mass/Vol] 7 mg/dL Normal 7-26 [facility] Comment on above: Order Comment: Speci men Type: BLOOD SPECIMENOrdering Facility: [facility] Address: [address] [place] [address] Performed By: #### 2 4321-2, ####[facility]ATORYCLIA [id number] [address] [place] CBC W Auto Differential pane l (Bld)on 09-18-2023 Basophils (Bld) [#/Vol] 10*3/uL Normal <0.11 [facility] Comment on above: Order Comment: Speci men Type: BLOOD SPECIMENOrdering Facility: [facility] Address: [address] [place] [address] Performed By: #### 5 7021-8 ####[facility]ATORYCLIA [id number] [address] [place] Basophils/100 WBC (Bld) 0.3 % Normal [facility] Comment on above: Order Comment: Speci men Type: BLOOD SPECIMENOrdering Facility: [facility] Address: [address] [place] [address] Performed By: #### 5 7021-8 ####[facility]ATORYCLIA [id number] [address] STATES [facility] Differential cell count method Nom (Bld) Auto Normal [facility] Comment on above: Order Comment: Speci men Type: BLOOD SPECIMENOrdering Facility: [facility] Address: [address] [place] [address] Performed By: #### 5 7021-8 ####[facility]ORATORYCLIA [id number] [place] [id number] [place] Eosinophils (Bld) [#/Vol] 0.40 10*3/uL Normal <0.46 [facility] Comment on above: Order Comment: Speci men Type: BLOOD SPECIMENOrdering Facility: [facility] Address: [address] [place] [address] Performed By: #### 5 7021-8 ####[facility]ORATORYCLIA [id number] [place] [address] [place] Eosinophils/100 WBC (Bld) 6.2 % Normal [facility] Comment on above: Order Comment: Speci men Type: BLOOD SPECIMENOrdering Facility: [facility] Address: [address] [place] [address] Performed By: #### 5 7021-8 ####[facility]ORATORYCLIA [id number] [place] [address] [place] Erythrocyte distribution width (RBC) [Ratio] 13.2 % Normal 11.5-15.0 [facility] Comment on above: Order Comment: Speci men Type: BLOOD SPECIMENOrdering Facility: [facility] Address: [address] [place] [address] Performed By: #### 5 7021-8 ####[facility]ORATORYCLIA [id number] [place] [id number] [place] Hematocrit (Bld) [Volume fraction] 39.4 % Normal 36.0-46.0 [facility] Comment on above: Order Comment: Speci men Type: BLOOD SPECIMENOrdering Facility: [facility] Address: [address] [place] [address] Performed By: #### 5 7021-8 ####[facility]ORATORYCLIA [id number] [place] [address] [place] Hemoglobin (Bld) [Mass/Vol] 13.2 g/dL Normal 11.5-15.5 [facility] Comment on above: Order Comment: Speci men Type: BLOOD SPECIMENOrdering Facility: [facility] Address: [address] [place] [address] Performed By: #### 5 7021-8 ####[facility]ATORYCLIA [id number] [place] [address] [place] Immature granulocytes (Bld) [#/Vol] 0.03 10*3/uL Normal <0.10 [facility] Comment on above: Order Comment: Speci men Type: BLOOD SPECIMENOrdering Facility: [facility] Address: [address] [place] [address] Performed By: #### 5 7021-8 ####[facility]ATORYCLIA [id number] [place] [address] [place] Immature granulocytes/100 WBC (Bld) 0.5 % Normal [facility] Comment on above: Order Comment: Speci men Type: BLOOD SPECIMENOrdering Facility: [facility] Address: [address] [place] [address] Performed By: #### 5 7021-8 ####[facility]ORATORYCLIA [id number] [place] [address] [place] Lymphocytes (Bld) [#/Vol] 1.57 10*3/uL Normal 1.00-4.00 [facility] Comment on above: Order Comment: Speci men Type: BLOOD SPECIMENOrdering Facility: [facility] Address: [address] [place] [address] Performed By: #### 5 7021-8 ####[facility]ORATORYCLIA [id number] [place] [address] [place] Lymphocytes/100 WBC (Bld) 24.5 % Normal [facility] Comment on above: Order Comment: Speci men Type: BLOOD SPECIMENOrdering Facility: [facility] Address: [address] [place] [address] Performed By: #### 5 7021-8 ####[facility]ORATORYCLIA [id number] [address] [place] MCH (RBC) [Entitic mass] 27.8 pg Normal 26.0-34.0 [facility] Comment on above: Order Comment: Speci men Type: BLOOD SPECIMENOrdering Facility: [facility] Address: [address] [place] [address] Performed By: #### 5 7021-8 ####[facility]ORATORYCLIA [id number] [address] [place] MCHC (RBC) [Mass/Vol] 33.5 g/dL Normal 30.5-36.0 [facility] Comment on above: Order Comment: Speci men Type: BLOOD SPECIMENOrdering Facility: [facility] Address: [address] [place] [address] Performed By: #### 5 7021-8 ####[facility]ORATORYCLIA [id number] [address] MCV (RBC) [Entitic vol] 83.1 fL Normal 80.0-100.0 [facility] Comment on above: Order Comment: Speci men Type: BLOOD SPECIMENOrdering Facility: [facility] Address: [address] [place] [address] Performed By: #### 5 7021-8 ####[facility]ORATORYCLIA [id number] [address] [place] Monocytes (Bld) [#/Vol] 0.74 10*3/uL Normal <0.87 [facility] Comment on above: Order Comment: Speci men Type: BLOOD SPECIMENOrdering Facility: [facility] Address: [address] [place] [address] Performed By: #### 5 7021-8 ####[facility]ORATORYCLIA [id number] [address] Monocytes/100 WBC (Bld) 11.5 % Normal [facility] Comment on above: Order Comment: Speci men Type: BLOOD SPECIMENOrdering Facility: [facility] Address: [address] [place] [address] Performed By: #### 5 7021-8 ####[facility]ORATORYCLIA [id number] [place] [address] [place] Neutrophils (Bld) [#/Vol] 3.65 10*3/uL Normal 1.45-7.50 [facility] Comment on above: Order Comment: Speci men Type: BLOOD SPECIMENOrdering Facility: [facility] Address: [address] [place] [address] Performed By: #### 5 7021-8 ####[facility]ORATORYCLIA [id number] [place] [address] [place] Neutrophils/100 WBC (Bld) 57.0 % Normal [facility] Comment on above: Order Comment: Speci men Type: BLOOD SPECIMENOrdering Facility: [facility] Address: [address] [place] [address] Performed By: #### 5 7021-8 ####[facility]ORATORYCLIA [id number] [place] [address] [place] Nucleated RBC (Bld) [#/Vol] 10*3/uL Normal <0.01 [facility] Comment on above: Order Comment: Speci men Type: BLOOD SPECIMENOrdering Facility: [facility] Address: [address] [place] [address] Performed By: #### 5 7021-8 ####[facility]ORATORYCLIA [id number] [place] [address] [place] Nucleated RBC/100 WBC (Bld) [Ratio] 0.0 /100 WBC Normal [facility] Comment on above: Order Comment: Speci men Type: BLOOD SPECIMENOrdering Facility: [facility] Address: [address] [place] [address] Performed By: #### 5 7021-8 ####[facility]ORATORYCLIA [id number] [place] [address] [place] Platelet mean volume (Bld) [Entitic vol] 10.1 fL Normal 9.0-12.7 [facility] Comment on above: Order Comment: Speci men Type: BLOOD SPECIMENOrdering Facility: [facility] Address: [address] [place] [address] Performed By: #### 5 7021-8 ####[facility]ORATORYCLIA [id number] [place] [id number] [place] Platelets (Bld) [#/Vol] 117 10*3/uL Low 150-400 [facility] Comment on above: Order Comment: Speci men Type: BLOOD SPECIMENOrdering Facility: [facility] Address: [address] [place] [address] Result Comment: No c lot detected. Performed By: #### 5 7021-8 ####[facility]ORATORYCLIA [id number] [place] [address] [place] RBC (Bld) [#/Vol] 4.74 10*6/uL Normal 3.90-5.20 [facility] Comment on above: Order Comment: Speci men Type: BLOOD SPECIMENOrdering Facility: [facility] Address: [address] [place] [address] Performed By: #### 5 7021-8 ####[facility]ORATORYCLIA [id number] [place] [address] [place] WBC (Bld) [#/Vol] 6.41 10*3/uL Normal 3.70-11.00 [facility] Comment on above: Order Comment: Speci men Type: BLOOD SPECIMENOrdering Facility: [facility] Address: [address] [place] [address] Performed By: #### 5 7021-8 ####[facility]ORATORYCLIA [id number] [place] [id number] [place] Magnesium SerPl-mCncon 09-17 Magnesium [Mass/Vol] 1.9 mg/dL Normal 1.6-2.6 [facility] Comment on above: Order Comment: Speci men Type: BLOOD SPECIMENOrdering Facility: [facility] Address: [address] [place] [address], [place] [address] Performed By: #### 2 4321-2, ####[facility] LABORATORYCLIA [id number] [place] [address] [place] THERAPY NTon 09-18-2023 THERAPY NT Normal [facility] XR CHEST 1V FRONTALon 2023 XR CHEST 1V FRONTAL Normal [facility] Basic metabolic 2000 panelon 09-17-2023 Anion gap [Moles/Vol] 7 mmol/L Normal 5-16 [facility] Comment on above: Order Comment: Speci men Type: BLOOD SPECIMENOrdering Facility: [facility] Address: [address] [place] [address] Performed By: #### 2 4321-2, ####[facility]ORATORYCLIA [id number] [place] [address] [place] Calcium [Mass/Vol] 10.1 mg/dL Normal 8.5-10.5 [facility] Comment on above: Order Comment: Speci men Type: BLOOD SPECIMENOrdering Facility: [facility] Address: [address] [place] [address] Performed By: #### 2 4321-2, ####[facility]ORATORYCLIA [id number] [place] [address] [place] Chloride [Moles/Vol] 102 mmol/L Normal 98-107 [facility] Comment on above: Order Comment: Speci men Type: BLOOD SPECIMENOrdering Facility: [facility] Address: [address] [place] [address] Performed By: #### 2 4321-2, ####[facility]ORATORYCLIA [id number] [place] [address] [place] CO2 [Moles/Vol] 29 mmol/L Normal 21-32 [facility] Comment on above: Order Comment: Speci men Type: BLOOD SPECIMENOrdering Facility: [facility] Address: [address] [place] [address] Performed By: #### 2 4321-2, ####[facility] LABORATORYCLIA [id number] [place] [id number] [place] Creatinine [Mass/Vol] 0.69 mg/dL Normal 0.51-0.95 [facility] Comment on above: Order Comment: Brady smith Type: BLOOD SPECIMENOrdering Facility: [facility] Address: [address] [place] [address] Result Comment: Linn ents receiving either N-Acetylcysteine (NAC) or Metamizole prior to venipuncture, may have falsely depressed results. Performed By: #### 2 43203-11, ####[facility] LABORATORYCLIA [id number] [place] [id number] [facility] Creatinine and Glomerular filtration rate.predicted panel (S/P/Bld) 86 mL/min/1.73m??? Normal >=60 [facility] Comment on above: Order Comment: Brady smith Type: BLOOD SPECIMENOrdering Facility: [facility] Address: [address] [place] [address] Result Comment: Esme mated Glomerular Filtration Rate [...] actual GFR. Performed By: #### 2 4320-04, ####[facility] LABORATORYCLIA [id number] [place] [id number] [place] Glucose [Mass/Vol] 92 mg/dL Normal 70-100 [facility] Comment on above: Order Comment: Brady smith Type: BLOOD SPECIMENOrdering Facility: [facility] Address: [address] [place] [address] Result Comment: The [place] Diabetes Association (ADA) provides guidance for cutoff [...] Standards of Medical Care in Diabetes 2016, [place] Diabetes Association. Diabetes Care. 2016.39(Suppl 1).Results may be falsely elevated after the administration of Sulfapyridine.Results may be falsely depressed after the administration of Sulfasalazine. Performed By: #### 2 432-, ####[facility] LABORATORYCLIA [id number] [place] [address] [place] Potassium [Moles/Vol] 3.2 mmol/L Low 3.5-5.1 [facility] Comment on above: Order Comment: Brady smith Type: BLOOD SPECIMENOrdering Facility: [facility] Address: [address] [place] [address] Performed By: #### 2 4320-04, ####[facility]ORATORYCLIA [id number] [address] [place] [facility] Sodium [Moles/Vol] 138 mmol/L Normal 136-145 [facility] Comment on above: Order Comment: Brady smith Type: BLOOD SPECIMENOrdering Facility: [facility] Address: [address] [place] [address] Performed By: #### 2 4320-04, ####[facility]ATORYCLIA [id number] [place] [id number] [place] Urea nitrogen [Mass/Vol] 6 mg/dL Low 7-26 [facility] Comment on above: Order Comment: Brady smith Type: BLOOD SPECIMENOrdering Facility: [facility] Address: [address] [place] [address] Performed By: #### 2 4320-04, ####[facility]ATORYCLIA [id number] [place] [id number] [place] CASE MANAGEMon 07-10-2024 CASE MANAGEM Normal [facility] CBC W Auto Differential pane l (Bld)on 09-17-2023 Basophils (Bld) [#/Vol] 10*3/uL Normal <0.11 [facility] Comment on above: Order Comment: Speci men Type: BLOOD SPECIMENOrdering Facility: [facility] Address: [address] [place] [address] Performed By: #### 5 7021-8 ####[facility]ATORYCLIA [id number] [place] [id number] [place] Basophils/100 WBC (Bld) 0.3 % Normal [facility] Comment on above: Order Comment: Speci men Type: BLOOD SPECIMENOrdering Facility: [facility] Address: [address] [place] [address] Performed By: #### 5 7021-8 ####[facility]ATORYCLIA [id number] [address] [place] Differential cell count method Nom (Bld) Auto Normal [facility] Comment on above: Order Comment: Speci men Type: BLOOD SPECIMENOrdering Facility: [facility] Address: [address] [place] [address] Performed By: #### 5 7021-8 ####[facility] LABORATORYCLIA [id number] [place] [address] [place] Eosinophils (Bld) [#/Vol] 0.42 10*3/uL Normal <0.46 [facility] Comment on above: Order Comment: Speci men Type: BLOOD SPECIMENOrdering Facility: [facility] Address: [address] [place] [address] Performed By: #### 5 7021-8 ####[facility]ATORYCLIA [id number] [address] [place] Eosinophils/100 WBC (Bld) 6.8 % Normal [facility] Comment on above: Order Comment: Speci men Type: BLOOD SPECIMENOrdering Facility: [facility] Address: [address] [place] [address] Performed By: #### 5 7021-8 ####[facility]ORATORYCLIA [id number] [place] [address] [place] Erythrocyte distribution width (RBC) [Ratio] 13.3 % Normal 11.5-15.0 [facility] Comment on above: Order Comment: Speci men Type: BLOOD SPECIMENOrdering Facility: [facility] Address: [address] [place] [address] Performed By: #### 5 7021-8 ####[facility]ORATORYCLIA [id number] [place] [address] [place] Hematocrit (Bld) [Volume fraction] 36.5 % Normal 36.0-46.0 [facility] Comment on above: Order Comment: Speci men Type: BLOOD SPECIMENOrdering Facility: [facility] Address: [address] [place] [address] Performed By: #### 5 7021-8 ####[facility]ATORYCLIA [id number] [place] [address] [place] Hemoglobin (Bld) [Mass/Vol] 12.4 g/dL Normal 11.5-15.5 [facility] Comment on above: Order Comment: Speci men Type: BLOOD SPECIMENOrdering Facility: [facility] Address: [address] [place] [address] Performed By: #### 5 7021-8 ####[facility]ATORYCLIA [id number] [place] [address] [place] Immature granulocytes (Bld) [#/Vol] 10*3/uL Normal <0.10 [facility] Comment on above: Order Comment: Speci men Type: BLOOD SPECIMENOrdering Facility: [facility] Address: [address] [place] [address] Performed By: #### 5 7021-8 ####[facility]ATORYCLIA [id number] [place] [id number] [place] Immature granulocytes/100 WBC (Bld) 0.3 % Normal [facility] Comment on above: Order Comment: Speci men Type: BLOOD SPECIMENOrdering Facility: [facility] Address: [address] [place] [address] Performed By: #### 5 7021-8 ####[facility]ORATORYCLIA [id number] [address] Lymphocytes (Bld) [#/Vol] 1.72 10*3/uL Normal 1.00-4.00 [facility] Comment on above: Order Comment: Speci men Type: BLOOD SPECIMENOrdering Facility: [facility] Address: [address] [place] [address] Performed By: #### 5 7021-8 ####[facility]ATORYCLIA [id number] [address] Lymphocytes/100 WBC (Bld) 27.7 % Normal [facility] Comment on above: Order Comment: Speci men Type: BLOOD SPECIMENOrdering Facility: [facility] Address: [address] [place] [address] Performed By: #### 5 7021-8 ####[facility]ORATORYCLIA [id number] [address] [place] MCH (RBC) [Entitic mass] 28.2 pg Normal 26.0-34.0 [facility] Comment on above: Order Comment: Speci men Type: BLOOD SPECIMENOrdering Facility: [facility] Address: [address] [place] [address] Performed By: #### 5 7021-8 ####[facility]ATORYCLIA [id number] [address] [place] MCHC (RBC) [Mass/Vol] 34.0 g/dL Normal 30.5-36.0 [facility] Comment on above: Order Comment: Speci men Type: BLOOD SPECIMENOrdering Facility: [facility] Address: [address] [place] [address] Performed By: #### 5 7021-8 ####[facility]ORATORYCLIA [id number] [place] [address] [place] MCV (RBC) [Entitic vol] 83.0 fL Normal 80.0-100.0 [facility] Comment on above: Order Comment: Speci men Type: BLOOD SPECIMENOrdering Facility: [facility] Address: [address] [place] [address] Performed By: #### 5 7021-8 ####[facility]ATORYCLIA [id number] [place] [address] [place] Monocytes (Bld) [#/Vol] 0.65 10*3/uL Normal <0.87 [facility] Comment on above: Order Comment: Speci men Type: BLOOD SPECIMENOrdering Facility: [facility] Address: [address] [place] [address] Performed By: #### 5 7021-8 ####[facility]ATORYCLIA [id number] [address] [place] Monocytes/100 WBC (Bld) 10.5 % Normal [facility] Comment on above: Order Comment: Speci men Type: BLOOD SPECIMENOrdering Facility: [facility] Address: [address] [place] [address] Performed By: #### 5 7021-8 ####[facility]ATORYCLIA [id number] [place] [address] [place] Neutrophils (Bld) [#/Vol] 3.37 10*3/uL Normal 1.45-7.50 [facility] Comment on above: Order Comment: Speci men Type: BLOOD SPECIMENOrdering Facility: [facility] Address: [address] [place] [address] Performed By: #### 5 7021-8 ####[facility]ATORYCLIA [id number] [place] [address] [place] Neutrophils/100 WBC (Bld) 54.4 % Normal [facility] Comment on above: Order Comment: Speci men Type: BLOOD SPECIMENOrdering Facility: [facility] Address: [address] [place] [address] Performed By: #### 5 7021-8 ####[facility]ATORYCLIA [id number] [place] [id number] [place] Nucleated RBC (Bld) [#/Vol] 10*3/uL Normal <0.01 [facility] Comment on above: Order Comment: Speci men Type: BLOOD SPECIMENOrdering Facility: [facility] Address: [address] [place] [address] Performed By: #### 5 7021-8 ####[facility]ATORYCLIA [id number] [place] [address] [place] Nucleated RBC/100 WBC (Bld) [Ratio] 0.0 /100 WBC Normal [facility] Comment on above: Order Comment: Speci men Type: BLOOD SPECIMENOrdering Facility: [facility] Address: [address] [place] [address] Performed By: #### 5 7021-8 ####[facility]ATORYCLIA [id number] [place] [address] [place] Platelet mean volume (Bld) [Entitic vol] 9.5 fL Normal 9.0-12.7 [facility] Comment on above: Order Comment: Speci men Type: BLOOD SPECIMENOrdering Facility: [facility] Address: [address] [place] [address] Performed By: #### 5 7021-8 ####[facility]ATORYCLIA [id number] [place] [address] [place] Platelets (Bld) [#/Vol] 115 10*3/uL Low 150-400 [facility] Comment on above: Order Comment: Speci men Type: BLOOD SPECIMENOrdering Facility: [facility] Address: [address] [place] [address] Result Comment: Resu lts checked and verified.No clot detected. Performed By: #### 5 7021-8 ####[facility]ATORYCLIA [id number] [place] [id number] [place] RBC (Bld) [#/Vol] 4.40 10*6/uL Normal 3.90-5.20 [facility] Comment on above: Order Comment: Speci men Type: BLOOD SPECIMENOrdering Facility: [facility] Address: [address] [place], [place] [address] Performed By: #### 5 7021-8 ####[facility]ATORYCLIA [id number] [place] [id number] [place] WBC (Bld) [#/Vol] 6.20 10*3/uL Normal 3.70-11.00 [facility] Comment on above: Order Comment: Speci men Type: BLOOD SPECIMENOrdering Facility: [facility] Address: [address] [place], [place] [address] Performed By: #### 5 7021-8 ####[facility]ATORYCLIA [id number] [place] [id number] [place] Magnesium SerPl-mCncon 09-16 Magnesium [Mass/Vol] 1.4 mg/dL Low 1.6-2.6 [facility] Comment on above: Order Comment: Speci men Type: BLOOD SPECIMENOrdering Facility: [facility] Address: [address] [place], [place] [address] Performed By: #### 2 4321-2, 39365-1 ####[facility]ATORYCLIA [id number] [place] [id number] [facility] [place] THERAPY NTon 09-17-2023 THERAPY NT Normal [facility] THERAPY NT Normal [facility] Basic metabolic 2000 panelon 09-16-2023 Anion gap [Moles/Vol] mmol/L Low 5-16 [facility] Comment on above: Order Comment: Speci men Type: BLOOD SPECIMENOrdering Facility: [facility] Address: [address] [place], [place] [address] Performed By: #### 2 4321-2 ####[facility]ATORYCLIA [id number] [place] [id number] [place] Calcium [Mass/Vol] 9.8 mg/dL Normal 8.5-10.5 [facility] Comment on above: Order Comment: Speci men Type: BLOOD SPECIMENOrdering Facility: [facility] Address: [address] [place] [address] Performed By: #### 2 4321-2 ####[facility]ATORYCLIA [id number] [place] [id number] [place] Chloride [Moles/Vol] 112 mmol/L High 98-107 [facility] Comment on above: Order Comment: Speci men Type: BLOOD SPECIMENOrdering Facility: [facility] Address: [address] [place] [address] Performed By: #### 2 4321-2 ####[facility]ATORYCLIA [id number] [place] [id number] [place] CO2 [Moles/Vol] 26 mmol/L Normal 21-32 [facility] Comment on above: Order Comment: Speci men Type: BLOOD SPECIMENOrdering Facility: [facility] Address: [address] [place] [address] Performed By: #### 2 4321-2 ####[facility]ORATORYCLIA [id number] [place] [address] [place] Creatinine [Mass/Vol] 0.62 mg/dL Normal 0.51-0.95 [facility] Comment on above: Order Comment: Speci men Type: BLOOD SPECIMENOrdering Facility: [facility] Address: [address] [place] [address] Result Comment: Linn ents receiving either N-Acetylcysteine (NAC) or Metamizole prior to venipuncture, may have falsely depressed results. Performed By: #### 2 4321-2 ####[facility]ORATORYCLIA [id number] [place] [address] [place] Creatinine and Glomerular filtration rate.predicted panel (S/P/Bld) 88 mL/min/1.73m??? Normal >=60 [facility] Comment on above: Order Comment: Speci men Type: BLOOD SPECIMENOrdering Facility: [facility] Address: [address] [place] [address] Result Comment: Esme mated Glomerular Filtration Rate [...] actual GFR. Performed By: #### 2 4321-2 ####[facility]ATORYCLIA [id number] [place] [id number] [place] Glucose [Mass/Vol] 75 mg/dL Normal 70-100 [facility] Comment on above: Order Comment: Brady smith Type: BLOOD SPECIMENOrdering Facility: [facility] Address: [address] [place] [address] Result Comment: The [place] Diabetes Association (ADA) provides guidance for cutoff [...] Standards of Medical Care in Diabetes 2016, [place] Of [place] Diabetes Association. Diabetes Care. 2016.39(Suppl 1).Results may be falsely elevated after the administration of Sulfapyridine.Results may be falsely depressed after the administration of Sulfasalazine. Performed By: #### 2 4321-2 ####[facility]ORATORYCLIA [id number] [place] [id number] [place] Potassium [Moles/Vol] 3.8 mmol/L Normal 3.5-5.1 [facility] Comment on above: Order Comment: Brady smith Type: BLOOD SPECIMENOrdering Facility: [facility] Address: [address] [place] [address] Performed By: #### 2 4321-2 ####[facility]ORATORYCLIA [id number] [place] [id number] [place] Sodium [Moles/Vol] 140 mmol/L Normal 136-145 [facility] Comment on above: Order Comment: Speci men Type: BLOOD SPECIMENOrdering Facility: [facility] Address: [address] [place] [address] Performed By: #### 2 4321-2 ####[facility]ORATORYCLIA [id number] [place] [id number] [place] Urea nitrogen [Mass/Vol] 7 mg/dL Normal 7-26 [facility] Comment on above: Order Comment: Speci men Type: BLOOD SPECIMENOrdering Facility: [facility] Address: [address] [place] [address] Performed By: #### 2 4321-2 ####[facility]ORATORYCLIA [id number] [place] [id number] [place] CBC W Auto Differential pane l (Bld)on 09-16-2023 Basophils (Bld) [#/Vol] 10*3/uL Normal <0.11 [facility] Comment on above: Order Comment: Speci men Type: BLOOD SPECIMENOrdering Facility: [facility] Address: [address] [place] [address] Performed By: #### 5 7021-8 ####[facility]ORATORYCLIA [id number] [address] [place] Basophils/100 WBC (Bld) 0.3 % Normal [facility] Comment on above: Order Comment: Speci men Type: BLOOD SPECIMENOrdering Facility: [facility] Address: [address] [place] [address] Performed By: #### 5 7021-8 ####[facility]ORATORYCLIA [id number] [address] [place] [facility] Differential cell count method Nom (Bld) Auto Normal [facility] Comment on above: Order Comment: Speci men Type: BLOOD SPECIMENOrdering Facility: [facility] Address: [address] [place] [address] Performed By: #### 5 7021-8 ####[facility]ATORYCLIA [id number] [place] [address] [place] Eosinophils (Bld) [#/Vol] 0.44 10*3/uL Normal <0.46 [facility] Comment on above: Order Comment: Speci men Type: BLOOD SPECIMENOrdering Facility: [facility] Address: [address] [place] [address] Performed By: #### 5 7021-8 ####[facility]ORATORYCLIA [id number] [place] [address] [place] Eosinophils/100 WBC (Bld) 6.5 % Normal [facility] Comment on above: Order Comment: Speci men Type: BLOOD SPECIMENOrdering Facility: [facility] Address: [address] [place] [address] Performed By: #### 5 7021-8 ####[facility]ORATORYCLIA [id number] [place] [address] [place] Erythrocyte distribution width (RBC) [Ratio] 13.4 % Normal 11.5-15.0 [facility] Comment on above: Order Comment: Speci men Type: BLOOD SPECIMENOrdering Facility: [facility] Address: [address] [place] [address] Performed By: #### 5 7021-8 ####[facility] LABORATORYCLIA [id number] [place] [address] [place] Hematocrit (Bld) [Volume fraction] 37.6 % Normal 36.0-46.0 [facility] Comment on above: Order Comment: Speci men Type: BLOOD SPECIMENOrdering Facility: [facility] Address: [address] [place] [address] Performed By: #### 5 7021-8 ####[facility] LABORATORYCLIA [id number] [place] [address] [place] Hemoglobin (Bld) [Mass/Vol] 12.5 g/dL Normal 11.5-15.5 [facility] Comment on above: Order Comment: Speci men Type: BLOOD SPECIMENOrdering Facility: [facility] Address: [address] [place] [address] Performed By: #### 5 7021-8 ####[facility]ORATORYCLIA [id number] [place] [id number] [place] Immature granulocytes (Bld) [#/Vol] 0.03 10*3/uL Normal <0.10 [facility] Comment on above: Order Comment: Speci men Type: BLOOD SPECIMENOrdering Facility: [facility] Address: [address] [place] [address] Performed By: #### 5 7021-8 ####[facility] LABORATORYCLIA [id number] [address] [place] Immature granulocytes/100 WBC (Bld) 0.4 % Normal [facility] Comment on above: Order Comment: Speci men Type: BLOOD SPECIMENOrdering Facility: [facility] Address: [address] [place] [address] Performed By: #### 5 7021-8 ####[facility] LABORATORYCLIA [id number] [place] [address] [place] Lymphocytes (Bld) [#/Vol] 2.24 10*3/uL Normal 1.00-4.00 [facility] Comment on above: Order Comment: Speci men Type: BLOOD SPECIMENOrdering Facility: [facility] Address: [address] [place] [address] Performed By: #### 5 7021-8 ####[facility]ORATORYCLIA [id number] [place] [address] [place] Lymphocytes/100 WBC (Bld) 32.8 % Normal [facility] Comment on above: Order Comment: Speci men Type: BLOOD SPECIMENOrdering Facility: [facility] Address: [address] [place] [address] Performed By: #### 5 7021-8 ####[facility] LABORATORYCLIA [id number] [place] [address] [place] MCH (RBC) [Entitic mass] 27.9 pg Normal 26.0-34.0 [facility] Comment on above: Order Comment: Speci men Type: BLOOD SPECIMENOrdering Facility: [facility] Address: [address] [place] [address] Performed By: #### 5 7021-8 ####[facility] LABORATORYCLIA [id number] [address] [place] MCHC (RBC) [Mass/Vol] 33.2 g/dL Normal 30.5-36.0 [facility] Comment on above: Order Comment: Speci men Type: BLOOD SPECIMENOrdering Facility: [facility] Address: [address] [place] [address] Performed By: #### 5 7021-8 ####[facility] LABORATORYCLIA [id number] [place] [address] [place] MCV (RBC) [Entitic vol] 83.9 fL Normal 80.0-100.0 [facility] Comment on above: Order Comment: Speci men Type: BLOOD SPECIMENOrdering Facility: [facility] Address: [address] [place] [address] Performed By: #### 5 7021-8 ####[facility]ORATORYCLIA [id number] [address] [place] Monocytes (Bld) [#/Vol] 0.86 10*3/uL Normal <0.87 [facility] Comment on above: Order Comment: Speci men Type: BLOOD SPECIMENOrdering Facility: [facility] Address: [address] [place] [address] Performed By: #### 5 7021-8 ####[facility] LABORATORYCLIA [id number] [address] [place] Monocytes/100 WBC (Bld) 12.6 % Normal [facility] Comment on above: Order Comment: Speci men Type: BLOOD SPECIMENOrdering Facility: [facility] Address: [address] [place] [address] Performed By: #### 5 7021-8 ####[facility] LABORATORYCLIA [id number] [place] [address] [place] Neutrophils (Bld) [#/Vol] 3.23 10*3/uL Normal 1.45-7.50 [facility] Comment on above: Order Comment: Speci men Type: BLOOD SPECIMENOrdering Facility: [facility] Address: [address] [place] [address] Performed By: #### 5 7021-8 ####[facility] LABORATORYCLIA [id number] [place] [address] [place] Neutrophils/100 WBC (Bld) 47.4 % Normal [facility] Comment on above: Order Comment: Speci men Type: BLOOD SPECIMENOrdering Facility: [facility] Address: [address] [place] [address] Performed By: #### 5 7021-8 ####[facility] LABORATORYCLIA [id number] [place] [address] [place] Nucleated RBC (Bld) [#/Vol] 10*3/uL Normal <0.01 [facility] Comment on above: Order Comment: Speci men Type: BLOOD SPECIMENOrdering Facility: [facility] Address: [address] [place] [address] Performed By: #### 5 7021-8 ####[facility] LABORATORYCLIA [id number] [place] [address] [place] Nucleated RBC/100 WBC (Bld) [Ratio] 0.0 /100 WBC Normal [facility] Comment on above: Order Comment: Speci men Type: BLOOD SPECIMENOrdering Facility: [facility] Address: [address] [place] [address] Performed By: #### 5 7021-8 ####[facility] LABORATORYCLIA [id number] [place] [address] [place] Platelet mean volume (Bld) [Entitic vol] 9.8 fL Normal 9.0-12.7 [facility] Comment on above: Order Comment: Speci men Type: BLOOD SPECIMENOrdering Facility: [facility] Address: [address] [place] [address] Performed By: #### 5 7021-8 ####[facility] LABORATORYCLIA [id number] [place] [id number] [facility] Platelets (Bld) [#/Vol] 116 10*3/uL Low 150-400 [facility] Comment on above: Order Comment: Speci men Type: BLOOD SPECIMENOrdering Facility: [facility] Address: [address] [place] [address] Result Comment: No c lot detected. Performed By: #### 5 7021-8 ####[facility] LABORATORYCLIA [id number] [place] [address] [place] RBC (Bld) [#/Vol] 4.48 10*6/uL Normal 3.90-5.20 [facility] Comment on above: Order Comment: Speci men Type: BLOOD SPECIMENOrdering Facility: [facility] Address: [address] [place] [address] Performed By: #### 5 7021-8 ####[facility] LABORATORYCLIA [id number] [address] [facility] WBC (Bld) [#/Vol] 6.82 10*3/uL Normal 3.70-11.00 [facility] Comment on above: Order Comment: Speci men Type: BLOOD SPECIMENOrdering Facility: [facility] Address: [address] [place] [address] Performed By: #### 5 7021-8 ####[facility] LABORATORYCLIA [id number] [place] [id number] [facility] THERAPY NTon 09-16-2023 THERAPY NT Normal [facility] THERAPY NT Normal [facility] Basic metabolic 2000 panelon 09-15-2023 Anion gap [Moles/Vol] 6 mmol/L Normal 5-16 [facility] Comment on above: Order Comment: Speci men Type: BLOOD SPECIMENOrdering Facility: [facility] Address: [address] [place] [address] Performed By: #### 2 4321-2 ####[facility]ORATORYCLIA [id number] [place] [id number] [place] Calcium [Mass/Vol] 9.8 mg/dL Normal 8.5-10.5 [facility] Comment on above: Order Comment: Speci men Type: BLOOD SPECIMENOrdering Facility: [facility] Address: [address] [place] [address] Performed By: #### 2 4321-2 ####[facility]ORATORYCLIA [id number] [place] [id number] [place] Chloride [Moles/Vol] 107 mmol/L Normal 98-107 [facility] Comment on above: Order Comment: Speci men Type: BLOOD SPECIMENOrdering Facility: [facility] Address: [address] [place] [address] Performed By: #### 2 4321-2 ####[facility]ORATORYCLIA [id number] [place] [address] [place] CO2 [Moles/Vol] 27 mmol/L Normal 21-32 [facility] Comment on above: Order Comment: Speci men Type: BLOOD SPECIMENOrdering Facility: [facility] Address: [address] [place] [address] Performed By: #### 2 4321-2 ####[facility]ORATORYCLIA [id number] [place] [id number] [place] Creatinine [Mass/Vol] 0.60 mg/dL Normal 0.51-0.95 [facility] Comment on above: Order Comment: Speci men Type: BLOOD SPECIMENOrdering Facility: [facility] Address: [address] [place] [address] Result Comment: Linn ents receiving either N-Acetylcysteine (NAC) or Metamizole prior to venipuncture, may have falsely depressed results. Performed By: #### 2 4321-2 ####[facility]ATORYCLIA [id number] [place] [address] [place] Creatinine and Glomerular filtration rate.predicted panel (S/P/Bld) 89 mL/min/1.73m??? Normal >=60 [facility] Comment on above: Order Comment: Brady smith Type: BLOOD SPECIMENOrdering Facility: [facility] Address: [address] [place] [address] Result Comment: Esme mated Glomerular Filtration Rate [...] actual GFR. Performed By: #### 2 4321-2 ####[facility]ATORYCLIA [id number] [place] [address] [place] Glucose [Mass/Vol] 92 mg/dL Normal 70-100 [facility] Comment on above: Order Comment: Brady smith Type: BLOOD SPECIMENOrdering Facility: [facility] Address: [address] [place] [address] Result Comment: The [place] Diabetes Association (ADA) provides guidance for cutoff [...] Standards of Medical Care in Diabetes 2016, [place] Diabetes Association. Diabetes Care. 2016.39(Suppl 1).Results may be falsely elevated after the administration of Sulfapyridine.Results may be falsely depressed after the administration of Sulfasalazine. Performed By: #### 2 4321-2 ####[facility]ORATORYCLIA [id number] [place] [address] [place] Potassium [Moles/Vol] 3.6 mmol/L Normal 3.5-5.1 [facility] Comment on above: Order Comment: Brady smith Type: BLOOD SPECIMENOrdering Facility: [facility] Address: [address] [place] [address] Performed By: #### 2 4321-2 ####[facility]ORATORYCLIA [id number] [place] [id number] [place] Sodium [Moles/Vol] 140 mmol/L Normal 136-145 [facility] Comment on above: Order Comment: Speci men Type: BLOOD SPECIMENOrdering Facility: [facility] Address: [address] [place] [address] Performed By: #### 2 4321-2 ####[facility]ORATORYCLIA [id number] [place] [id number] [place] Urea nitrogen [Mass/Vol] 6 mg/dL Low 10-02 [facility] Comment on above: Order Comment: Speci men Type: BLOOD SPECIMENOrdering Facility: [facility] Address: [address] [place] [address] Performed By: #### 2 4321-2 ####[facility]ORATORYCLIA [id number] [place] [id number] [place] CASE MGT INIT ASSESon 2023 CASE MGT INIT ASSES Normal [facility] CBC W Auto Differential pane l (Bld)on 09-15-2023 Basophils (Bld) [#/Vol] 0.03 10*3/uL Normal <0.11 [facility] Comment on above: Order Comment: Speci men Type: BLOOD SPECIMENOrdering Facility: [facility] Address: [address] [place] [address] Performed By: #### 5 7021-8 ####[facility]ORATORYCLIA [id number] [place] [id number] [place] Basophils/100 WBC (Bld) 0.4 % Normal [facility] Comment on above: Order Comment: Speci men Type: BLOOD SPECIMENOrdering Facility: [facility] Address: [address] [place] [address] Performed By: #### 5 7021-8 ####[facility]ATORYCLIA [id number] [address] [place] Differential cell count method Nom (Bld) Auto Normal [facility] Comment on above: Order Comment: Speci men Type: BLOOD SPECIMENOrdering Facility: [facility] Address: [address] [place] [address] Performed By: #### 5 7021-8 ####[facility]ORATORYCLIA [id number] [place] [address] [place] Eosinophils (Bld) [#/Vol] 0.27 10*3/uL Normal <0.46 [facility] Comment on above: Order Comment: Speci men Type: BLOOD SPECIMENOrdering Facility: [facility] Address: [address] [place] [address] Performed By: #### 5 7021-8 ####[facility]ORATORYCLIA [id number] [address] [place] Eosinophils/100 WBC (Bld) 3.3 % Normal [facility] Comment on above: Order Comment: Speci men Type: BLOOD SPECIMENOrdering Facility: [facility] Address: [address] [place] [address] Performed By: #### 5 7021-8 ####[facility]ORATORYCLIA [id number] [address] [place] Erythrocyte distribution width (RBC) [Ratio] 13.2 % Normal 11.5-15.0 [facility] Comment on above: Order Comment: Speci men Type: BLOOD SPECIMENOrdering Facility: [facility] Address: [address] [place] [address] Performed By: #### 5 7021-8 ####[facility]ORATORYCLIA [id number] [address] [place] Hematocrit (Bld) [Volume fraction] 38.5 % Normal 36.0-46.0 [facility] Comment on above: Order Comment: Speci men Type: BLOOD SPECIMENOrdering Facility: [facility] Address: [address] [place] [address] Performed By: #### 5 7021-8 ####[facility]ORATORYCLIA [id number] [place] [address] [place] Hemoglobin (Bld) [Mass/Vol] 13.2 g/dL Normal 11.5-15.5 [facility] Comment on above: Order Comment: Speci men Type: BLOOD SPECIMENOrdering Facility: [facility] Address: [address] [place] [address] Performed By: #### 5 7021-8 ####[facility]ORATORYCLIA [id number] [place] [address] [place] Immature granulocytes (Bld) [#/Vol] 0.03 10*3/uL Normal <0.10 [facility] Comment on above: Order Comment: Speci men Type: BLOOD SPECIMENOrdering Facility: [facility] Address: [address] [place] [address] Performed By: #### 5 7021-8 ####[facility]ORATORYCLIA [id number] [place] [address] [place] Immature granulocytes/100 WBC (Bld) 0.4 % Normal [facility] Comment on above: Order Comment: Speci men Type: BLOOD SPECIMENOrdering Facility: [facility] Address: [address] [place] [address] Performed By: #### 5 7021-8 ####[facility]ORATORYCLIA [id number] [place] [address] [place] Lymphocytes (Bld) [#/Vol] 1.95 10*3/uL Normal 1.00-4.00 [facility] Comment on above: Order Comment: Speci men Type: BLOOD SPECIMENOrdering Facility: [facility] Address: [address] [place] [address] Performed By: #### 5 7021-8 ####[facility]ATORYCLIA [id number] [place] [id number] [place] Lymphocytes/100 WBC (Bld) 23.6 % Normal [facility] Comment on above: Order Comment: Speci men Type: BLOOD SPECIMENOrdering Facility: [facility] Address: [address] [place] [address] Performed By: #### 5 7021-8 ####[facility]ORATORYCLIA [id number] [place] [address] [place] MCH (RBC) [Entitic mass] 28.2 pg Normal 26.0-34.0 [facility] Comment on above: Order Comment: Speci men Type: BLOOD SPECIMENOrdering Facility: [facility] Address: [address] [place] [address] Performed By: #### 5 7021-8 ####[facility]ATORYCLIA [id number] [address] [place] MCHC (RBC) [Mass/Vol] 34.3 g/dL Normal 30.5-36.0 [facility] Comment on above: Order Comment: Speci men Type: BLOOD SPECIMENOrdering Facility: [facility] Address: [address] [place] [address] Performed By: #### 5 7021-8 ####[facility]ORATORYCLIA [id number] [address] [place] MCV (RBC) [Entitic vol] 82.3 fL Normal 80.0-100.0 M [facility] Comment on above: Order Comment: Speci men Type: BLOOD SPECIMENOrdering Facility: [facility] Address: [address] [place] [address] Performed By: #### 5 7021-8 ####[facility]ATORYCLIA [id number] [place] [address] [place] Monocytes (Bld) [#/Vol] 1.03 10*3/uL High <0.87 [facility] Comment on above: Order Comment: Speci men Type: BLOOD SPECIMENOrdering Facility: [facility] Address: [address] [place] [address] Performed By: #### 5 7021-8 ####[facility]ORATORYCLIA [id number] [address] [place] Monocytes/100 WBC (Bld) 12.5 % Normal [facility] Comment on above: Order Comment: Speci men Type: BLOOD SPECIMENOrdering Facility: [facility] Address: [address] [place] [address] Performed By: #### 5 7021-8 ####[facility]ORATORYCLIA [id number] [place] [address] [place] Neutrophils (Bld) [#/Vol] 4.94 10*3/uL Normal 1.45-7.50 [facility] Comment on above: Order Comment: Speci men Type: BLOOD SPECIMENOrdering Facility: [facility] Address: [address] [place] [address] Performed By: #### 5 7021-8 ####[facility]ATORYCLIA [id number] [address] [place] Neutrophils/100 WBC (Bld) 59.8 % Normal [facility] Comment on above: Order Comment: Speci men Type: BLOOD SPECIMENOrdering Facility: [facility] Address: [address] [place] [address] Performed By: #### 5 7021-8 ####[facility]ORATORYCLIA [id number] [place] [address] [place] Nucleated RBC (Bld) [#/Vol] 10*3/uL Normal <0.01 [facility] Comment on above: Order Comment: Speci men Type: BLOOD SPECIMENOrdering Facility: [facility] Address: [address] [place] [address] Performed By: #### 5 7021-8 ####[facility]ATORYCLIA [id number] [place] [id number] [place] Nucleated RBC/100 WBC (Bld) [Ratio] 0.0 /100 WBC Normal [facility] Comment on above: Order Comment: Speci men Type: BLOOD SPECIMENOrdering Facility: [facility] Address: [address] [place] [address] Performed By: #### 5 7021-8 ####[facility]ATORYCLIA [id number] [address] [place] Platelet mean volume (Bld) [Entitic vol] 9.5 fL Normal 9.0-12.7 [facility] Comment on above: Order Comment: Speci men Type: BLOOD SPECIMENOrdering Facility: [facility] Address: [address] [place] [address] Performed By: #### 5 7021-8 ####[facility]ORATORYCLIA [id number] [place] [address] [place] Platelets (Bld) [#/Vol] 136 10*3/uL Low 150-400 [facility] Comment on above: Order Comment: Speci men Type: BLOOD SPECIMENOrdering Facility: [facility] Address: [address] [place] [address] Result Comment: No c lot detected. Performed By: #### 5 7021-8 ####[facility]ORATORYCLIA [id number] [place] [address] [place] RBC (Bld) [#/Vol] 4.68 10*6/uL Normal 3.90-5.20 [facility] Comment on above: Order Comment: Speci men Type: BLOOD SPECIMENOrdering Facility: [facility] Address: [address] [place] [address] Performed By: #### 5 7021-8 ####[facility]ORATORYCLIA [id number] [place] [address] [place] WBC (Bld) [#/Vol] 8.25 10*3/uL Normal 3.70-11.00 [facility] Comment on above: Order Comment: Speci men Type: BLOOD SPECIMENOrdering Facility: [facility] Address: [address] [place] [address] Performed By: #### 5 7021-8 ####[facility]ORATORYCLIA [id number] [place] [id number] [place] NUTRITIONon 09-15-2023 NUTRITION Normal [facility] THERAPY NTon 09-15-2023 THERAPY NT Normal [facility] THERAPY NT Normal [facility] Ammonia Plas-sCncon 09-14-19 24 Ammonia (P) [Moles/Vol] 22 umol/L Normal 11-32 M [facility] Comment on above: Order Comment: Speci men Type: BLOOD SPECIMENOrdering Facility: [facility] Address: [address] [place] [address] Result Comment: Resu lts may be falsely depressed after the administration of Sulfapyridine. Results may be falsely elevated after the administration of Sulfasalazine. Performed By: #### 1 6362-6 ####[facility]ORATORYCLIA [id number] [place] [id number] [place] Basic metabolic 2000 panelon 09-14-2023 Anion gap [Moles/Vol] 10 mmol/L Normal 5-16 [facility] Comment on above: Order Comment: Speci men Type: BLOOD SPECIMENOrdering Facility: [facility] Address: [address] [place] [address] Performed By: #### 2 4321-2, ####[facility]ORATORYCLIA [id number] [place] [address] [place] Calcium [Mass/Vol] 10.1 mg/dL Normal 8.5-10.5 [facility] Comment on above: Order Comment: Speci men Type: BLOOD SPECIMENOrdering Facility: [facility] Address: [address] [place] [address] Performed By: #### 2 4321-2, ####[facility]ORATORYCLIA [id number] [place] [id number] [place] Chloride [Moles/Vol] 102 mmol/L Normal 98-107 [facility] Comment on above: Order Comment: Speci men Type: BLOOD SPECIMENOrdering Facility: [facility] Address: [address] [place] [address] Performed By: #### 2 4321-2, ####[facility]ATORYCLIA [id number] [place] [id number] [place] CO2 [Moles/Vol] 27 mmol/L Normal 21-32 [facility] Comment on above: Order Comment: Brady smith Type: BLOOD SPECIMENOrdering Facility: [facility] Address: [address] [place] [address] Performed By: #### 2 43203-11, ####[facility]ORATORYCLIA [id number] [place] [id number] [place] Creatinine [Mass/Vol] 0.66 mg/dL Normal 0.51-0.95 [facility] Comment on above: Order Comment: Speci men Type: BLOOD SPECIMENOrdering Facility: [facility] Address: [address] [place] [address] Result Comment: Linn ents receiving either N-Acetylcysteine (NAC) or Metamizole prior to venipuncture, may have falsely depressed results. Performed By: #### 2 43203-11, ####[facility]ORATORYCLIA [id number] [address] [facility] Creatinine and Glomerular filtration rate.predicted panel (S/P/Bld) 87 mL/min/1.73m??? Normal >=60 [facility] Comment on above: Order Comment: Brady smith Type: BLOOD SPECIMENOrdering Facility: [facility] Address: [address] [place] [address] Result Comment: Esme mated Glomerular Filtration Rate [...] actual GFR. Performed By: #### 2 432-, ####[facility]ATORYCLIA [id number] [place] [id number] [place] Glucose [Mass/Vol] 97 mg/dL Normal 70-100 [facility] Comment on above: Order Comment: Brady smith Type: BLOOD SPECIMENOrdering Facility: [facility] Address: [address] [place] [address] Result Comment: The [place] Diabetes Association (ADA) provides guidance for cutoff [...] Standards of Medical Care in Diabetes 2016, [place] Diabetes Association. Diabetes Care. 2016.39(Suppl 1).Results may be falsely elevated after the administration of Sulfapyridine.Results may be falsely depressed after the administration of Sulfasalazine. Performed By: #### 2 43203-11, ####[facility] LABORATORYCLIA [id number] [place] [address] [place] Potassium [Moles/Vol] 3.4 mmol/L Low 3.5-5.1 [facility] Comment on above: Order Comment: Speci men Type: BLOOD SPECIMENOrdering Facility: [facility] Address: [address] [place] [address] Performed By: #### 2 4320-04, ####[facility]ORATORYCLIA [id number] [place] [address] [place] Sodium [Moles/Vol] 139 mmol/L Normal 136-145 [facility] Comment on above: Order Comment: Speci men Type: BLOOD SPECIMENOrdering Facility: [facility] Address: [address] [place] [address] Performed By: #### 2 4320-04, ####[facility]ORATORYCLIA [id number] [place] [id number] [place] Urea nitrogen [Mass/Vol] 8 mg/dL Normal 7-26 [facility] Comment on above: Order Comment: Speci men Type: BLOOD SPECIMENOrdering Facility: [facility] Address: [address] [place] [address] Performed By: #### 2 4321-2, 95215-1 ####[facility]ORATORYCLIA [id number] [place] [id number] [facility] [place] CBC panel Auto (Bld)on 09-13 Erythrocyte distribution width (RBC) [Ratio] 12.9 % Normal 11.5-15.0 [facility] Comment on above: Order Comment: Speci men Type: BLOOD SPECIMENOrdering Facility: [facility] Address: [address] [place] [address] Performed By: #### 5 8410-2 ####[facility] LABORATORYCLIA [id number] [address] [place] Hematocrit (Bld) [Volume fraction] 40.6 % Normal 36.0-46.0 [facility] Comment on above: Order Comment: Speci men Type: BLOOD SPECIMENOrdering Facility: [facility] Address: [address] [place] [address] Performed By: #### 5 8410-2 ####[facility]ORATORYCLIA [id number] [address] [place] Hemoglobin (Bld) [Mass/Vol] 13.8 g/dL Normal 11.5-15.5 [facility] Comment on above: Order Comment: Speci men Type: BLOOD SPECIMENOrdering Facility: [facility] Address: [address] [place] [address] Performed By: #### 5 8410-2 ####[facility]ORATORYCLIA [id number] [address] [place] MCH (RBC) [Entitic mass] 27.8 pg Normal 26.0-34.0 [facility] Comment on above: Order Comment: Speci men Type: BLOOD SPECIMENOrdering Facility: [facility] Address: [address] [place] [address] Performed By: #### 5 8410-2 ####[facility]ORATORYCLIA [id number] [address] [place] MCHC (RBC) [Mass/Vol] 34.0 g/dL Normal 30.5-36.0 [facility] Comment on above: Order Comment: Speci men Type: BLOOD SPECIMENOrdering Facility: [facility] Address: [address] [place] [address] Performed By: #### 5 8410-2 ####[facility]ORATORYCLIA [id number] [place] [address] [place] MCV (RBC) [Entitic vol] 81.7 fL Normal 80.0-100.0 M [facility] Comment on above: Order Comment: Speci men Type: BLOOD SPECIMENOrdering Facility: [facility] Address: [address] [place] [address] Performed By: #### 5 8410-2 ####[facility]ORATORYCLIA [id number] [place] [address] [place] Nucleated RBC (Bld) [#/Vol] 10*3/uL Normal <0.01 [facility] Comment on above: Order Comment: Speci men Type: BLOOD SPECIMENOrdering Facility: [facility] Address: [address] [place] [address] Performed By: #### 5 8410-2 ####[facility]ORATORYCLIA [id number] [place] [address] [place] Platelet mean volume (Bld) [Entitic vol] 9.9 fL Normal 9.0-12.7 [facility] Comment on above: Order Comment: Speci men Type: BLOOD SPECIMENOrdering Facility: [facility] Address: [address] [place] [address] Performed By: #### 5 8410-2 ####[facility]ORATORYCLIA [id number] [place] [address] [place] Platelets (Bld) [#/Vol] 156 10*3/uL Normal 150-400 [facility] Comment on above: Order Comment: Speci men Type: BLOOD SPECIMENOrdering Facility: [facility] Address: [address] [place] [address] Performed By: #### 5 8410-2 ####[facility] [facility]ATORYCLIA [id number] [place] [id number] [place] RBC (Bld) [#/Vol] 4.97 10*6/uL Normal 3.90-5.20 [facility] Comment on above: Order Comment: Speci men Type: BLOOD SPECIMENOrdering Facility: [facility] Address: [address] [place] [address] Performed By: #### 5 8410-2 ####[facility] LABORATORYCLIA [id number] [address] [facility] WBC (Bld) [#/Vol] 7.41 10*3/uL Normal 3.70-11.00 [facility] Comment on above: Order Comment: Speci men Type: BLOOD SPECIMENOrdering Facility: [facility] Address: [address] [place] [address] Performed By: #### 5 8410-2 ####[facility]ORATORYCLIA [id number] [place] [id number] [facility] [place] Magnesium SerPl-mCncon 09-13 Magnesium [Mass/Vol] 1.9 mg/dL Normal 1.6-2.6 [facility] Comment on above: Order Comment: Speci men Type: BLOOD SPECIMENOrdering Facility: [facility] Address: [address] [place] [address] Performed By: #### 2 4321-2, 85259-6 ####[facility]ATORYCLIA [id number] [place] [id number] [facility] CBC W Auto Differential pane l (Bld)on 09-13-2023 Basophils (Bld) [#/Vol] 10*3/uL Normal <0.11 M [facility] Comment on above: Order Comment: Speci men Type: BLOOD SPECIMENOrdering Facility: [facility] Address: [address] [place] [address] Performed By: #### 5 7021-8 ####[facility]ATORYCLIA [id number] [place] [address] [place] Basophils/100 WBC (Bld) 0.2 % Normal [facility] Comment on above: Order Comment: Speci men Type: BLOOD SPECIMENOrdering Facility: [facility] Address: [address] [place] [address] Performed By: #### 5 7021-8 ####[facility]ORATORYCLIA [id number] [place] [address] [place] Differential cell count method Nom (Bld) Auto Normal [facility] Comment on above: Order Comment: Speci men Type: BLOOD SPECIMENOrdering Facility: [facility] Address: [address] [place] [address] Performed By: #### 5 7021-8 ####[facility]ORATORYCLIA [id number] [place] [address] [place] Eosinophils (Bld) [#/Vol] 0.10 10*3/uL Normal <0.46 [facility] Comment on above: Order Comment: Speci men Type: BLOOD SPECIMENOrdering Facility: [facility] Address: [address] [place] [address] Performed By: #### 5 7021-8 ####[facility]ORATORYCLIA [id number] [address] [place] Eosinophils/100 WBC (Bld) 1.2 % Normal [facility] Comment on above: Order Comment: Speci men Type: BLOOD SPECIMENOrdering Facility: [facility] Address: [address] [place] [address] Performed By: #### 5 7021-8 ####[facility]ORATORYCLIA [id number] [address] [place] Erythrocyte distribution width (RBC) [Ratio] 12.9 % Normal 11.5-15.0 [facility] Comment on above: Order Comment: Speci men Type: BLOOD SPECIMENOrdering Facility: [facility] Address: [facility] [place] [address] Performed By: #### 5 7021-8 ####[facility]ORATORYCLIA [id number] [place] [id number] [place] Hematocrit (Bld) [Volume fraction] 40.0 % Normal 36.0-46.0 [facility] Comment on above: Order Comment: Speci men Type: BLOOD SPECIMENOrdering Facility: [facility] Address: [address] [place] [address] Performed By: #### 5 7021-8 ####[facility]ORATORYCLIA [id number] [place] [address] [place] Hemoglobin (Bld) [Mass/Vol] 14.2 g/dL Normal 11.5-15.5 [facility] Comment on above: Order Comment: Speci men Type: BLOOD SPECIMENOrdering Facility: [facility] Address: [address] [place] [address] Performed By: #### 5 7021-8 ####[facility]ATORYCLIA [id number] [place] [address] [place] Immature granulocytes (Bld) [#/Vol] 0.03 10*3/uL Normal <0.10 [facility] Comment on above: Order Comment: Speci men Type: BLOOD SPECIMENOrdering Facility: [facility] Address: [address] [place] [address] Performed By: #### 5 7021-8 ####[facility]ATORYCLIA [id number] [place] [address] [place] Immature granulocytes/100 WBC (Bld) 0.4 % Normal [facility] Comment on above: Order Comment: Speci men Type: BLOOD SPECIMENOrdering Facility: [facility] Address: [address] [place] [address] Performed By: #### 5 7021-8 ####[facility]ATORYCLIA [id number] [place] [address] [place] Lymphocytes (Bld) [#/Vol] 1.23 10*3/uL Normal 1.00-4.00 [facility] Comment on above: Order Comment: Speci men Type: BLOOD SPECIMENOrdering Facility: [facility] Address: [address] [place] [address] Performed By: #### 5 7021-8 ####[facility]ORATORYCLIA [id number] [address] [place] Lymphocytes/100 WBC (Bld) 14.9 % Normal [facility] Comment on above: Order Comment: Speci men Type: BLOOD SPECIMENOrdering Facility: [facility] Address: [address] [place] [address] Performed By: #### 5 7021-8 ####[facility]ATORYCLIA [id number] [place] [address] [place] MCH (RBC) [Entitic mass] 28.6 pg Normal 26.0-34.0 [facility] Comment on above: Order Comment: Speci men Type: BLOOD SPECIMENOrdering Facility: [facility] Address: [address] [place] [address] Performed By: #### 5 7021-8 ####[facility]ATORYCLIA [id number] [address] [place] MCHC (RBC) [Mass/Vol] 35.5 g/dL Normal 30.5-36.0 [facility] Comment on above: Order Comment: Speci men Type: BLOOD SPECIMENOrdering Facility: [facility] Address: [address] [place] [address] Performed By: #### 5 7021-8 ####[facility]ATORYCLIA [id number] [place] [address] [place] MCV (RBC) [Entitic vol] 80.6 fL Normal 80.0-100.0 M [facility] Comment on above: Order Comment: Speci men Type: BLOOD SPECIMENOrdering Facility: [facility] Address: [address] [place] [address] Performed By: #### 5 7021-8 ####[facility]ATORYCLIA [id number] [place] [address] [place] Monocytes (Bld) [#/Vol] 0.92 10*3/uL High <0.87 [facility] Comment on above: Order Comment: Speci men Type: BLOOD SPECIMENOrdering Facility: [facility] Address: [address] [place] [address] Performed By: #### 5 7021-8 ####[facility]ORATORYCLIA [id number] [place] [id number] [place] Monocytes/100 WBC (Bld) 11.1 % Normal [facility] Comment on above: Order Comment: Speci men Type: BLOOD SPECIMENOrdering Facility: [facility] Address: [address] [place] [address] Performed By: #### 5 7021-8 ####[facility]ORATORYCLIA [id number] [place] [address] [place] Neutrophils (Bld) [#/Vol] 5.98 10*3/uL Normal 1.45-7.50 [facility] Comment on above: Order Comment: Speci men Type: BLOOD SPECIMENOrdering Facility: [facility] Address: [address] [place] [address] Performed By: #### 5 7021-8 ####[facility]ATORYCLIA [id number] [place] [address] [place] Neutrophils/100 WBC (Bld) 72.2 % Normal [facility] Comment on above: Order Comment: Speci men Type: BLOOD SPECIMENOrdering Facility: [facility] Address: [address] [place] [address] Performed By: #### 5 7021-8 ####[facility]ORATORYCLIA [id number] [place] [id number] [place] Nucleated RBC (Bld) [#/Vol] 10*3/uL Normal <0.01 [facility] Comment on above: Order Comment: Speci men Type: BLOOD SPECIMENOrdering Facility: [facility] Address: [address] [place] [address] Performed By: #### 5 7021-8 ####[facility]ATORYCLIA [id number] [place] [id number] [place] Nucleated RBC/100 WBC (Bld) [Ratio] 0.0 /100 WBC Normal [facility] Comment on above: Order Comment: Speci men Type: BLOOD SPECIMENOrdering Facility: [facility] Address: [address] [place] [address] Performed By: #### 5 7021-8 ####[facility]ORATORYCLIA [id number] [place] [id number] [place] Platelet mean volume (Bld) [Entitic vol] 9.6 fL Normal 9.0-12.7 [facility] Comment on above: Order Comment: Speci men Type: BLOOD SPECIMENOrdering Facility: [facility] Address: [address] [place] [address] Performed By: #### 5 7021-8 ####[facility]ATORYCLIA [id number] [place] [id number] [place] Platelets (Bld) [#/Vol] 151 10*3/uL Normal 150-400 [facility] Comment on above: Order Comment: Speci men Type: BLOOD SPECIMENOrdering Facility: [facility] Address: [address] [place] [address] Performed By: #### 5 7021-8 ####[facility]ATORYCLIA [id number] [place] [id number] [place] RBC (Bld) [#/Vol] 4.96 10*6/uL Normal 3.90-5.20 [facility] Comment on above: Order Comment: Speci men Type: BLOOD SPECIMENOrdering Facility: [facility] Address: [address] [place] [address] Performed By: #### 5 7021-8 ####[facility]ATORYCLIA [id number] [place] [id number] [place] WBC (Bld) [#/Vol] 8.28 10*3/uL Normal 3.70-11.00 [facility] Comment on above: Order Comment: Speci men Type: BLOOD SPECIMENOrdering Facility: [facility] Address: [address] [place] [address] Performed By: #### 5 7021-8 ####[facility]ORATORYCLIA [id number] [place] [id number] [facility] Comprehensive metabolic 2000 panelon 09-13-2023 Albumin [Mass/Vol] 3.6 g/dL Normal 3.2-5.0 [facility] Comment on above: Order Comment: Speci men Type: BLOOD SPECIMENOrdering Facility: [facility] Address: [address] [place] [address] Performed By: #### 2 4323-8, 25118-4 ####[facility]ATORYCLIA [id number] [place] [id number] [place] ALP [Catalytic activity/Vol] 102 U/L Normal 45-117 [facility] Comment on above: Order Comment: Speci men Type: BLOOD SPECIMENOrdering Facility: [facility] Address: [address] [place] [address] Performed By: #### 2 4323-8, ####[facility]ATORYCLIA [id number] [place] [id number] [facility] ALT [Catalytic activity/Vol] 10 U/L Low 13-61 [facility] Comment on above: Order Comment: Speci men Type: BLOOD SPECIMENOrdering Facility: [facility] Address: [address] [place] [address] Result Comment: Resu lts may be falsely depressed after the administration of Sulfasalazine and/or Sulfapyridine. Performed By: #### 2 4323-8, ####[facility]ATORYCLIA [id number] [place] [id number] [place] Anion gap [Moles/Vol] 9 mmol/L Normal 5-16 [facility] Comment on above: Order Comment: Speci men Type: BLOOD SPECIMENOrdering Facility: [facility] Address: [address] [place] [address] Performed By: #### 2 4322-10, ####[facility]ATORYCLIA [id number] [place] [address] [place] AST [Catalytic activity/Vol] 17 U/L Normal 8-34 [facility] Comment on above: Order Comment: Speci men Type: BLOOD SPECIMENOrdering Facility: [facility] Address: [address] [place] [address] Result Comment: Resu lts may be falsely depressed after the administration of Sulfasalazine and/or Sulfapyridine. Performed By: #### 2 4322-10, ####[facility]ATORYCLIA [id number] [place] [id number] [place] Bilirubin [Mass/Vol] 0.8 mg/dL Normal 0.2-1.0 [facility] Comment on above: Order Comment: Speci men Type: BLOOD SPECIMENOrdering Facility: [facility] Address: [address] [place] [address] Performed By: #### 2 4322-10, ####[facility]ATORYCLIA [id number] [place] [id number] [place] Calcium [Mass/Vol] 10.7 mg/dL High 8.5-10.5 [facility] Comment on above: Order Comment: Speci men Type: BLOOD SPECIMENOrdering Facility: [facility] Address: [address] [place] [address] Performed By: #### 2 4322-10, ####[facility]ATORYCLIA [id number] [place] [id number] [place] Chloride [Moles/Vol] 92 mmol/L Low 98-107 [facility] Comment on above: Order Comment: Speci men Type: BLOOD SPECIMENOrdering Facility: [facility] Address: [address] [place] [address] Performed By: #### 2 4328, ####[facility]ATORYCLIA [id number] [place] [id number] [place] CO2 [Moles/Vol] 33 mmol/L High 21-32 [facility] Comment on above: Order Comment: Speci luis Type: BLOOD SPECIMENOrdering Facility: [facility] Address: [address] [place] [address] Performed By: #### 2 4323-8, ####[facility]ORATORYCLIA [id number] [place] [id number] [place] Creatinine [Mass/Vol] 0.99 mg/dL High 0.51-0.95 [facility] Comment on above: Order Comment: Speci men Type: BLOOD SPECIMENOrdering Facility: [facility] Address: [address] [place] [address] Result Comment: Linn ents receiving either N-Acetylcysteine (NAC) or Metamizole prior to venipuncture, may have falsely depressed results. Performed By: #### 2 4323-8, ####[facility]ORATORYCLIA [id number] [address] Creatinine and Glomerular filtration rate.predicted panel (S/P/Bld) 56 mL/min/1.73m??? Low >=60 [facility] Comment on above: Order Comment: Brady smith Type: BLOOD SPECIMENOrdering Facility: [facility] Address: [address] [place] [address] Result Comment: Esme mated Glomerular Filtration Rate [...] actual GFR. Performed By: #### 2 4323-8, ####[facility]ATORYCLIA [id number] [place] [id number] [place] Glucose [Mass/Vol] 103 mg/dL High 70-100 [facility] Comment on above: Order Comment: Jayyi men Type: BLOOD SPECIMENOrdering Facility: [facility] Address: [address] [place] [id number] Result Comment: The [place] Diabetes Association (ADA) provides guidance for cutoff [...] Standards of Medical Care in Diabetes 2016, [place] Diabetes Association. Diabetes Care. 2016.39(Suppl 1).Results may be falsely elevated after the administration of Sulfapyridine.Results may be falsely depressed after the administration of Sulfasalazine. Performed By: #### 2 4323-8, ####[facility]ORATORYCLIA [id number] [place] [id number] [place] Potassium [Moles/Vol] 2.7 mmol/L Low 3.5-5.1 [facility] Comment on above: Order Comment: Speci men Type: BLOOD SPECIMENOrdering Facility: [facility] Address: [address] [place] [id number] Performed By: #### 2 4323-8, ####[facility]ORATORYCLIA [id number] [place] [id number] [place] Protein [Mass/Vol] 7.3 g/dL Normal 6.0-8.5 [facility] Comment on above: Order Comment: Speci men Type: BLOOD SPECIMENOrdering Facility: [facility] Address: [address] [place] [address] Performed By: #### 2 4323-8, ####[facility]ORATORYCLIA [id number] [place] [id number] [place] Sodium [Moles/Vol] 134 mmol/L Low 136-145 [facility] Comment on above: Order Comment: Speci men Type: BLOOD SPECIMENOrdering Facility: [facility] Address: [address] [place], [place] [address] Performed By: #### 2 4323-8, 68041-4 ####[facility]ORATORYCLIA [id number] [place] [address] [place] Urea nitrogen [Mass/Vol] 18 mg/dL Normal 10-02 [facility] Comment on above: Order Comment: Speci men Type: BLOOD SPECIMENOrdering Facility: [facility] Address: [address] [place], [place] [address] Performed By: #### 2 4323-8, 98808-1 ####[facility]ORATORYCLIA [id number] [place] [id number] [facility] [place] ECG COMPLETEon 09-13-2023 ECG COMPLETE Normal [facility] ED NOTEon 09-13-2023 ED NOTE Normal [facility] ED NOTE HNO ID: [id number] Author: LJ HUNTER RN Service: ? Author Type: Registered Nurse Type: ED Notes Filed: 09/13/2023 08:47 Note Text: Bed: 11-ED Expected date: 09/13/23 Expected time: 8:27 AM Means of arrival: Comments: [place] Normal [facility] ED PROV NOTEon 09-13-2023 ED PROV NOTE Normal [facility] HIGH SENSITIVITY TROPONIN Io n 09-13-2023 Tropinin I.cardiac panel High sensitivity method 14.9 pg/mL Normal 0.0-34.0 [facility] Comment on above: Order Comment: Speci men Type: BLOOD SPECIMENOrdering Facility: [facility] Address: [address] [place], [place] [address] Performed By: #### H STROP ####[facility]ATORYCLIA [id number] [place] [id number] [place] HISTORY PHYSICALon HISTORY PHYSICAL Normal [facility] Magnesium SerPl-mCncon 09-12 Magnesium [Mass/Vol] 1.3 mg/dL Low 1.6-2.6 [facility] Comment on above: Order Comment: Speci men Type: BLOOD SPECIMENOrdering Facility: [facility] Address: [address] [place] [address] Performed By: #### 2 4323-8, 44102-5 ####[facility]ORATORYCLIA [id number] [place] [id number] [facility] NURSING PROGon 09-13-2023 NURSING PROG Normal [facility] PT panel Coag (PPP)on 2023 INR Coag (PPP) [Relative time] 1.2 {INR} Normal 0.9-1.3 [facility] Comment on above: Order Comment: Speci men Type: BLOOD SPECIMENOrdering Facility: [facility] Address: [address] [place] [address] Result Comment: Serena min K Antagonist (VKA) Therapeutic Range: INR 2 to 3 (Target INR of 2.5)Note: For patients treated with VKA drugs, such as warfarin, the [place] College of Chest Physicians 2012 Guideline recommends [...] al. Chest 2012, 141:7S-47SNishimeddie RA, et al. [facility] 2017, 70: 252-289 Performed By: #### 3 4528-0, 58273-7 ####[facility]ORATORYCLIA [id number] [place] [id number] [place] PT Coag (PPP) [Time] 12.6 s Normal 9.7-13.0 [facility] Comment on above: Order Comment: Speci men Type: BLOOD SPECIMENOrdering Facility: [facility] Address: [address] [place] [address] Performed By: #### 3 4528-0, 88282-6 ####[facility]ORATORYCLIA [id number] [address] [place] Urinalysis complete panel (U )on 09-13-2023 Bacteria LM.HPF (Urine sed) [#/Area] Many Abnormal None Seen [facility] Comment on above: Order Comment: Speci men Type: URINE SPECIMENOrdering Facility: [facility] Address: [address] [place] [address] Performed By: #### 2 4356-8 ####[facility]ATORYCLIA [id number] [place] [address] [place] Bilirubin Ql (U) Negative Normal Negative [facility] Comment on above: Order Comment: Speci men Type: URINE SPECIMENOrdering Facility: [facility] Address: [address] [place] [address] Performed By: #### 2 4356-8 ####[facility]ATORYCLIA [id number] [address] [place] Clarity (Unsp spec) Hazy Abnormal Clear [facility] Comment on above: Order Comment: Speci men Type: URINE SPECIMENOrdering Facility: [facility] Address: [address] [place] [address] Performed By: #### 2 4356-8 ####[facility]ORATORYCLIA [id number] [address] [place] Color (U) Yellow Normal Yellow [facility] Comment on above: Order Comment: Speci men Type: URINE SPECIMENOrdering Facility: [facility] Address: [address] [place] [address] Performed By: #### 2 4356-8 ####[facility]ORATORYCLIA [id number] [address] [place] Epithelial cells LM.HPF (Urine sed) [#/Area] Few Normal [facility] Comment on above: Order Comment: Speci men Type: URINE SPECIMENOrdering Facility: [facility] Address: [address] [place] [address] Performed By: #### 2 4356-8 ####[facility]ORATORYCLIA [id number] [address] [place] Glucose Test strip (U) [Mass/Vol] Negative Normal Negative [facility] Comment on above: Order Comment: Speci men Type: URINE SPECIMENOrdering Facility: [facility] Address: [address] [place] [address] Performed By: #### 2 4356-8 ####[facility]ATORYCLIA [id number] [place] [address] [place] Hemoglobin Ql (U) Negative Normal Negative [facility] Comment on above: Order Comment: Speci men Type: URINE SPECIMENOrdering Facility: [facility] Address: [address] [place] [address] Performed By: #### 2 4356-8 ####[facility]ATORYCLIA [id number] [place] [address] [place] Ketones Ql (U) Trace Abnormal Negative [facility] Comment on above: Order Comment: Speci men Type: URINE SPECIMENOrdering Facility: [facility] Address: [address] [place] [address] Performed By: #### 2 4356-8 ####[facility]ORATORYCLIA [id number] [address] [place] Leukocyte esterase Test strip Ql (U) 3+ Abnormal Negative [facility] Comment on above: Order Comment: Speci men Type: URINE SPECIMENOrdering Facility: [facility] Address: [address] [place] [address] Performed By: #### 2 4356-8 ####[facility]ATORYCLIA [id number] [place] [address] [place] Nitrite Ql (U) Negative Normal Negative [facility] Comment on above: Order Comment: Speci men Type: URINE SPECIMENOrdering Facility: [facility] Address: [address] [place] [address] Performed By: #### 2 4356-8 ####[facility]ORATORYCLIA [id number] [address] [place] pH (U) 6.0 [pH] Normal 5.0-8.0 [facility] Comment on above: Order Comment: Speci men Type: URINE SPECIMENOrdering Facility: [facility] Address: [address] [place] [address] Performed By: #### 2 4356-8 ####[facility]ORATORYCLIA [id number] [place] [address] [place] Protein (U) [Mass/Vol] Negative Normal Negative [facility] Comment on above: Order Comment: Speci men Type: URINE SPECIMENOrdering Facility: [facility] Address: [address] [place] [address] Performed By: #### 2 4356-8 ####[facility] LABORATORYCLIA [id number] [place] [address] [place] RBC LM.HPF (Urine sed) [#/Area] 6-10 /HPF Abnormal 0-3 /HPF [facility] Comment on above: Order Comment: Speci men Type: URINE SPECIMENOrdering Facility: [facility] Address: [address] [place] [address] Performed By: #### 2 4356-8 ####[facility] LABORATORYIA [id number] [address] [place] Specific gravity (U) [Rel density] 1.012 Normal 1.005-1.030 [facility] Comment on above: Order Comment: Speci men Type: URINE SPECIMENOrdering Facility: [facility] Address: [address] [place] [address] Performed By: #### 2 4356-8 ####[facility] LABORATORYIA [id number] [address] [place] Urobilinogen Ql (U) Negative Normal Negative [facility] Comment on above: Order Comment: Speci men Type: URINE SPECIMENOrdering Facility: [facility] Address: [address] [place] [address] Performed By: #### 2 4356-8 ####[facility] LABORATORYCLIA [id number] [place] [id number] [facility] WBC LM.HPF (Urine sed) [#/Area] /[HPF] Abnormal 0-5 /HPF [facility] Comment on above: Order Comment: Speci men Type: URINE SPECIMENOrdering Facility: [facility] Address: [address] [place] [address] Performed By: #### 2 4356-8 ####[facility] LABORATORYCLIA [id number] [address] [place] Urinalysis complete pnl Uron 09-13-2023 Urinalysis complete panel (U) Normal [facility] Comment on above: Order Comment: Speci men Type: URINE SPECIMENOrdering Facility: [facility] Address: [address] [place] [address] Performed By: #### 2 4356-8 ####[facility] LABORATORYCLIA [id number] [address] [place] aPTT PPPon 09-13-2023 aPTT Coag (PPP) [Time] 33.5 s High 23.0-32.4 [facility] Comment on above: Order Comment: Speci men Type: BLOOD SPECIMENOrdering Facility: [facility] Address: [address] [place] [address] Performed By: #### 3 4528-0, 39760-5 ####[facility] LABORATORYCLIA [id number] [address] .Auto Diffon 09-03-2023 Basophil, Absolute 0.0 10 3/mcL Normal 0.0-0.3 [facility] ([place]) Comment on above: Performed By: #### B MP, GFR, TSH #### [facility] [address] [place] [address] Basophils/100 WBC (Bld) 0.1 % Normal 0.0-2.5 A [facility] ([place]) Comment on above: Performed By: #### B MP, GFR, TSH #### [address] [address] Eosinophil, Absolute 0.3 10 3/mcL Normal 0.0-0.7 [facility] ([place]) Comment on above: Performed By: #### B MP, GFR, TSH #### [address] [address] Eosinophils/100 WBC (Bld) 4.7 % Normal 0.0-6.0 [facility] ([place]) Comment on above: Performed By: #### B MP, GFR, TSH #### [address] [address] Lymphocyte, Absolute 1.7 10 3/mcL Normal 0.9-4.3 [facility] ([place]) Comment on above: Performed By: #### B MP, GFR, TSH #### [address] [address] Lymphocytes/100 WBC (Bld) 27.4 % Normal 20.0-40.0 [facility] ([place]) Comment on above: Performed By: #### B MP, GFR, TSH #### [address] [address] Monocyte, Absolute 0.8 10 3/mcL Normal 0.1-1.4 [facility] ([place]) Comment on above: Performed By: #### B MP, GFR, TSH #### [address] [address] Monocytes/100 WBC (Bld) 11.9 % Normal 2.0-13.0 [facility] ([place]) Comment on above: Performed By: #### B MP, GFR, TSH #### [address] [address] Neutrophils/100 WBC (Bld) 55.9 % Normal 50.0-75.0 [facility] ([place]) Comment on above: Performed By: #### B MP, GFR, TSH #### [address] [address] .GFRon 09-03-2023 GFR >60 Normal [facility] ([place]) Comment on above: Result Comment: GFR [...] By: #### B MP, GFR, TSH #### [address] [address] GFR Non- >60 Normal [facility] ([place]) Comment on above: Result Comment: GFR Population [...] By: #### B MP, GFR, TSH #### [address] [address] .NEUABSon 09-03-2023 Neutrophil, Absolute 3.6 10 3/mcL Normal 2.3-8.1 [facility] ([place]) Comment on above: Performed By: #### B MP, GFR, TSH #### [address] [address] B12on 09-03-2023 Cobalamin (Vitamin B12) [Mass/Vol] 453 pg/mL Normal 211-911 [facility] ([place]) Comment on above: Performed By: #### B MP, GFR, TSH #### [address] [address] BMPon 09-03-2023 BUN/Creatinine Ratio 18.3 ratio Normal 10.0-22.0 [facility] ([place]) Comment on above: Performed By: #### B MP, GFR, TSH #### [address] [address] Calcium [Mass/Vol] 10.0 mg/dL Normal 8.7-10.4 [facility] ([place]) Comment on above: Performed By: #### B MP, GFR, TSH #### [address] [address] Chloride [Moles/Vol] 99 mmol/L Normal 98-110 [facility] ([place]) Comment on above: Performed By: #### B MP, GFR, TSH #### [address] [address] CO2 [Moles/Vol] 33 mmol/L High 22-32 [facility] ([place]) Comment on above: Performed By: #### B MP, GFR, TSH #### [address] [address] Creatinine [Mass/Vol] 0.82 mg/dL Normal 0.50-1.20 [facility] ([place]) Comment on above: Performed By: #### B MP, GFR, TSH #### [address] [address] Electrolyte Balance 2.0 mEq/L Low 4.0-15.0 [facility] ([place]) Comment on above: Performed By: #### B MP, GFR, TSH #### [address] [address] Glucose [Mass/Vol] 77 mg/dL Low 82-115 [facility] ([place]) Comment on above: Performed By: #### B MP, GFR, TSH #### [address] [address] Potassium [Moles/Vol] 3.6 mmol/L Normal 3.5-5.0 [facility] ([place]) Comment on above: Performed By: #### B MP, GFR, TSH #### [address] [address] Sodium [Moles/Vol] 134 mmol/L Low 136-145 [facility] ([place]) Comment on above: Performed By: #### B MP, GFR, TSH #### [place] [address] Urea nitrogen [Mass/Vol] 15.0 mg/dL Normal 8.0-22.0 [facility] ([place]) Comment on above: Performed By: #### B MP, GFR, TSH #### [place] [address] CBCon 09-03-2023 Erythrocyte distribution width (RBC) [Ratio] 13.0 % Normal 11.5-15.5 [facility] ([place]) Comment on above: Performed By: #### B MP, GFR, TSH #### [place] [address] Hematocrit (Bld) [Volume fraction] 40.2 % Normal 34.0-46.0 [facility] ([place]) Comment on above: Performed By: #### B MP, GFR, TSH #### [place] [phone] Hgb 13.5 G/dL Normal 12.0-16.0 [facility] ([place]) Comment on above: Performed By: #### B MP, GFR, TSH #### [place] [phone] MCH (RBC) [Entitic mass] 29.1 pg Normal 27.0-33.0 [facility] ([place]) Comment on above: Performed By: #### B MP, GFR, TSH #### [place] [address] MCHC 33.7 G/dL Normal 32.0-36.0 [facility] ([place]) Comment on above: Performed By: #### B MP, GFR, TSH #### [place] [phone] MCV (RBC) [Entitic vol] 86.5 fL Normal 80.0-99.0 A [facility] ([place]) Comment on above: Performed By: #### B MP, GFR, TSH #### [address] [address] Platelet 106 10 3/mcL Low 150-450 [facility] ([place]) Comment on above: Performed By: #### B MP, GFR, TSH #### [address] [address] Platelet mean volume (Bld) [Entitic vol] 9.4 fL Normal 6.6-10.5 [facility] ([place]) Comment on above: Performed By: #### B MP, GFR, TSH #### [address] [address] RBC 4.64 10 6/mcL Normal 4.10-5.30 [facility] ([place]) Comment on above: Performed By: #### B MP, GFR, TSH #### [address] [address] WBC 6.4 10 3/mcL Normal 4.5-10.8 [facility] ([place]) Comment on above: Performed By: #### B MP, GFR, TSH #### [address] [address] Luis Alberto 09-03-2023 Ferritin [Mass/Vol] 99.6 ng/mL Normal 8.0-252.0 [facility] ([place]) Comment on above: Performed By: #### B MP, GFR, TSH #### [address] [address] FT4on 09-03-2023 Free T4 [Mass/Vol] 1.81 ng/dL High 0.89-1.76 [facility] ([place]) Comment on above: Result Comment: No te - New Reference Range in effect 19 Performed By: #### B MP, GFR, TSH #### [address] [address] LIPIDon 09-03-2023 Cholesterol [Mass/Vol] 155 mg/dL Normal 50-199 [facility] ([place]) Comment on above: Result Comment: Chol esterol Reference Interval: Less than 200 Desirable 200-239 Borderline high risk 240 and above High risk Performed By: #### B MP, GFR, TSH #### [address] [address] Cholesterol in HDL [Mass/Vol] 32 mg/dL Low 40-59 [facility] ([place]) Comment on above: Performed By: #### B MP, GFR, TSH #### [facility] [address] [place] [address] Cholesterol in LDL [Mass/Vol] 91 mg/dL Normal 0-129 [facility] ([place]) Comment on above: Performed By: #### B MP, GFR, TSH #### [address] [address] Triglyceride [Mass/Vol] 159 mg/dL High 3-149 A [facility] ([place]) Comment on above: Performed By: #### B MP, GFR, TSH #### [address] [address] MGon 09-03-2023 Magnesium [Mass/Vol] 1.2 mg/dL Low 1.6-2.4 [facility] ([place]) Comment on above: Performed By: #### B MP, GFR, TSH #### [address] [address] .GFRon 08-01-2023 GFR >60 Normal [facility] ([place]) Comment on above: Result Comment: GFR Population [...] By: #### B MP, GFR, TSH #### [address] [address] GFR Non- >60 Normal [facility] ([place]) Comment on above: Result Comment: GFR Population [...] By: #### B MP, GFR, TSH #### [address] [address] BMPon 08-01-2023 BUN/Creatinine Ratio 18.8 ratio Normal 10.0-22.0 [facility] ([place]) Comment on above: Performed By: #### B MP, GFR, TSH #### [address] [address] Calcium [Mass/Vol] 10.2 mg/dL Normal 8.7-10.4 [facility] ([place]) Comment on above: Performed By: #### B MP, GFR, TSH #### [address] [address] Chloride [Moles/Vol] 101 mmol/L Normal 98-110 [facility] ([place]) Comment on above: Performed By: #### B MP, GFR, TSH #### [address] [address] CO2 [Moles/Vol] 33 mmol/L High 22-32 [facility] ([place]) Comment on above: Performed By: #### B MP, GFR, TSH #### [address] [address] Creatinine [Mass/Vol] 0.85 mg/dL Normal 0.50-1.20 [facility] ([place]) Comment on above: Performed By: #### B MP, GFR, TSH #### [address] [address] Electrolyte Balance 4.0 mEq/L Normal 4.0-15.0 [facility] ([place]) Comment on above: Performed By: #### B MP, GFR, TSH #### [place] [phone] Glucose [Mass/Vol] 121 mg/dL High 82-115 [facility] ([place]) Comment on above: Performed By: #### B MP, GFR, TSH #### [place] [phone] Potassium [Moles/Vol] 4.0 mmol/L Normal 3.5-5.0 [facility] ([place]) Comment on above: Performed By: #### B MP, GFR, TSH #### [place] [phone] Sodium [Moles/Vol] 138 mmol/L Normal 136-145 [facility] ([place]) Comment on above: Performed By: #### B MP, GFR, TSH #### [place] [address] Urea nitrogen [Mass/Vol] 16.0 mg/dL Normal 8.0-22.0 [facility] ([place]) Comment on above: Performed By: #### B MP, GFR, TSH #### [place] [address] TSHon 08-01-2023 TSH 0.028 mIU/mL Low 0.550-4.780 [facility] ([place]) Comment on above: Result Comment: No te - New Reference Range in effect 19 Performed By: #### B MP, GFR, TSH #### [place] [id number] 25([place])D3 [facility] 25-hydroxyvitamin D3 [Mass/Vol] 51.4 ng/mL Normal 30.0-100.0 [facility] Comment on above: Order Comment: Speci men Type: BLOOD SPECIMENOrdering Facility: [facility] Address: [address] [place] [address] Result Comment: Defi ciency\X09\Less than 20 ng/mLInsufficiency\X09\20 - Less than 30 ng/mLSufficiency\X09\30 - 100 ng/mL Performed By: #### 2 4323-8, 1988-05 ####[facility] LABORATORYCLIA [id number] [address] CBC panel Auto (Bld)on 06-24 Erythrocyte distribution width (RBC) [Ratio] 14.0 % Normal 11.5-15.0 [facility] Comment on above: Order Comment: Speci men Type: BLOOD SPECIMENOrdering Facility: [facility] Address: [address] [place] [address] Performed By: #### 5 8410-2 ####[facility]ORATORYCLIA [id number] [address] Hematocrit (Bld) [Volume fraction] 45.4 % Normal 36.0-46.0 [facility] Comment on above: Order Comment: Speci men Type: BLOOD SPECIMENOrdering Facility: [facility] Address: [address] [place] [address] Performed By: #### 5 8410-2 ####[facility] LABORATORYCLIA [id number] [address] [place] Hemoglobin (Bld) [Mass/Vol] 15.2 g/dL Normal 11.5-15.5 [facility] Comment on above: Order Comment: Speci men Type: BLOOD SPECIMENOrdering Facility: [facility] Address: [address] [place] [address] Performed By: #### 5 8410-2 ####[facility]ORATORYCLIA [id number] [address] [place] MCH (RBC) [Entitic mass] 29.9 pg Normal 26.0-34.0 [facility] Comment on above: Order Comment: Speci men Type: BLOOD SPECIMENOrdering Facility: [facility] Address: [address] [place] [address] Performed By: #### 5 8410-2 ####[facility]ORATORYCLIA [id number] [address] [place] MCHC (RBC) [Mass/Vol] 33.5 g/dL Normal 30.5-36.0 [facility] Comment on above: Order Comment: Speci men Type: BLOOD SPECIMENOrdering Facility: [facility] Address: [address] [place] [address] Performed By: #### 5 8410-2 ####[facility] LABORATORYCLIA [id number] [place] [address] [place] MCV (RBC) [Entitic vol] 89.4 fL Normal 80.0-100.0 M [facility] Comment on above: Order Comment: Speci men Type: BLOOD SPECIMENOrdering Facility: [facility] Address: [address] [place] [address] Performed By: #### 5 8410-2 ####[facility]ORATORYCLIA [id number] [address] [place] Nucleated RBC (Bld) [#/Vol] 10*3/uL Normal <0.01 [facility] Comment on above: Order Comment: Speci men Type: BLOOD SPECIMENOrdering Facility: [facility] Address: [address] [place] [address] Performed By: #### 5 8410-2 ####[facility]ORATORYCLIA [id number] [address] [place] Platelet mean volume (Bld) [Entitic vol] 10.5 fL Normal 9.0-12.7 [facility] Comment on above: Order Comment: Speci men Type: BLOOD SPECIMENOrdering Facility: [facility] Address: [address] [place] [address] Performed By: #### 5 8410-2 ####[facility]ORATORYCLIA [id number] [address] [place] Platelets (Bld) [#/Vol] 106 10*3/uL Low 150-400 [facility] Comment on above: Order Comment: Speci men Type: BLOOD SPECIMENOrdering Facility: [facility] Address: [address] [place] [address] Performed By: #### 5 8410-2 ####[facility] LABORATORYCLIA [id number] [place] [id number] [facility] RBC (Bld) [#/Vol] 5.08 10*6/uL Normal 3.90-5.20 [facility] Comment on above: Order Comment: Speci men Type: BLOOD SPECIMENOrdering Facility: [facility] Address: [address] [place] [address] Performed By: #### 5 8410-2 ####[facility] LABORATORYCLIA [id number] [place] [id number] [facility] WBC (Bld) [#/Vol] 6.32 10*3/uL Normal 3.70-11.00 [facility] Comment on above: Order Comment: Speci men Type: BLOOD SPECIMENOrdering Facility: [facility] Address: [address] [place] [address] Performed By: #### 5 8410-2 ####[facility] LABORATORYCLIA [id number] [address] Comprehensive metabolic 2000 panelon 06-25-2023 Albumin [Mass/Vol] 3.9 g/dL Normal 3.2-5.0 [facility] Comment on above: Order Comment: Speci men Type: BLOOD SPECIMENOrdering Facility: [facility] Address: [address] [place] [address] Performed By: #### 2 4323-8, 1988-05 ####[facility] LABORATORYCLIA [id number] [place] [id number] [place] ALP [Catalytic activity/Vol] 129 U/L High 45-117 [facility] Comment on above: Order Comment: Speci men Type: BLOOD SPECIMENOrdering Facility: [facility] Address: [address] [place] [address] Performed By: #### 2 4323-8, 1988-05 ####[facility]ORATORYCLIA [id number] [place] [id number] [facility] ALT [Catalytic activity/Vol] 87 U/L High 13-61 [facility] Comment on above: Order Comment: Speci men Type: BLOOD SPECIMENOrdering Facility: [facility] Address: [address] [place] [address] Result Comment: Resu lts may be falsely depressed after the administration of Sulfasalazine and/or Sulfapyridine. Performed By: #### 2 43205-15, 1988-05 ####[facility]ORATORYCLIA [id number] [place] [id number] [place] [facility] Anion gap [Moles/Vol] 6 mmol/L Normal 5-16 [facility] Comment on above: Order Comment: Speci men Type: BLOOD SPECIMENOrdering Facility: [facility] Address: [address] [place] [address] Performed By: #### 2 43205-15, 1988-05 ####[facility]ORATORYCLIA [id number] [address] STATES OF [facility] AST [Catalytic activity/Vol] 56 U/L High 8-34 [facility] Comment on above: Order Comment: Speci men Type: BLOOD SPECIMENOrdering Facility: [facility] Address: [address] [place] [address] Result Comment: Resu lts may be falsely depressed after the administration of Sulfasalazine and/or Sulfapyridine. Performed By: #### 2 43205-15, 1988-05 ####[facility]ORATORYCLIA [id number] [place] [id number] [place] Bilirubin [Mass/Vol] 1.0 mg/dL Normal 0.2-1.0 [facility] Comment on above: Order Comment: Speci men Type: BLOOD SPECIMENOrdering Facility: [facility] Address: [address] [place] [address] Performed By: #### 2 43205-15, 1988-05 ####[facility]ORATORYCLIA [id number] [place] [id number] [place] Calcium [Mass/Vol] 10.9 mg/dL High 8.5-10.5 [facility] Comment on above: Order Comment: Speci men Type: BLOOD SPECIMENOrdering Facility: [facility] Address: [address] [place] [address] Performed By: #### 2 4328, 1988-05 ####[facility]ORATORYCLIA [id number] [place] [id number] [place] Chloride [Moles/Vol] 96 mmol/L Low 98-107 [facility] Comment on above: Order Comment: Speci men Type: BLOOD SPECIMENOrdering Facility: [facility] Address: [address] [place] [address] Performed By: #### 2 4328, 1988-05 ####[facility]ORATORYCLIA [id number] [place] [id number] [place] CO2 [Moles/Vol] 34 mmol/L High 21-32 [facility] Comment on above: Order Comment: Speci men Type: BLOOD SPECIMENOrdering Facility: [facility] Address: [address] [place] [address] Performed By: #### 2 43205-15, 1988-05 ####[facility] LABORATORYCLIA [id number] [place] [id number] [place] Creatinine [Mass/Vol] 0.98 mg/dL High 0.51-0.95 [facility] Comment on above: Order Comment: Speci men Type: BLOOD SPECIMENOrdering Facility: [facility] Address: [address] [place] [address] Result Comment: Linn ents receiving either N-Acetylcysteine (NAC) or Metamizole prior to venipuncture, may have falsely depressed results. Performed By: #### 2 43238, 1988-05 ####[facility] LABORATORYCLIA [id number] [place] [address] [place] Creatinine and Glomerular filtration rate.predicted panel (S/P/Bld) 57 mL/min/1.73m??? Low >=60 [facility] Comment on above: Order Comment: Speci men Type: BLOOD SPECIMENOrdering Facility: [facility] Address: [address] [place] [address] Result Comment: Esme mated Glomerular Filtration Rate [...] GFR. Performed By: #### 2 43205-15, 1988-05 ####[facility] LABORATORYCLIA [id number] [place] [address] [place] Glucose [Mass/Vol] 140 mg/dL High 70-100 [facility] Comment on above: Order Comment: Specsamantha smith Type: BLOOD SPECIMENOrdering Facility: [facility] Address: [address] [place] [address] Result Comment: The [place] Diabetes Association (ADA) provides guidance for cutoff [...] Standards of Medical Care in Diabetes 2016, Citizen [place] Diabetes Association. Diabetes Care. 2016.39(Suppl 1).Results may be falsely elevated after the administration of Sulfapyridine.Results may be falsely depressed after the administration of Sulfasalazine. Performed By: #### 2 4322-10, 1988-05 ####[facility] LABORATORYCLIA [id number] [place] [id number] [place] Potassium [Moles/Vol] 3.0 mmol/L Low 3.5-5.1 [facility] Comment on above: Order Comment: Jayyi luis Type: BLOOD SPECIMENOrdering Facility: [facility] Address: [address] [place] [address] Performed By: #### 2 4322-101988-05 ####[facility] LABORATORYCLIA [id number] [place] [id number] [place] Protein [Mass/Vol] 7.3 g/dL Normal 6.0-8.5 [facility] Comment on above: Order Comment: Speci men Type: BLOOD SPECIMENOrdering Facility: [facility] Address: [address] [place] [address] Performed By: #### 2 4323-8, 1988-05 ####[facility] LABORATORYCLIA [id number] [place] [id number] [place] Sodium [Moles/Vol] 136 mmol/L Normal 136-145 [facility] Comment on above: Order Comment: Speci men Type: BLOOD SPECIMENOrdering Facility: [facility] Address: [address] [place] [address] Performed By: #### 2 4328, 1988-05 ####[facility] LABORATORYCLIA [id number] [place] [address] [place] Urea nitrogen [Mass/Vol] 15 mg/dL Normal 7-26 [facility] Comment on above: Order Comment: Speci men Type: BLOOD SPECIMENOrdering Facility: [facility] Address: [address] [place] [address] Performed By: #### 2 4328, 1988-05 ####[facility] LABORATORYCLIA [id number] [place] [id number] [place] .Auto Diffon 06-20-2023 Basophil, Absolute 0.0 10 3/mcL Normal 0.0-0.3 [facility] ([place]) Comment on above: Performed By: #### A DIFF, CBC, MDW, GFR, CMP, TROPHS, PBNP, ANEU #### [address] [address] Basophils/100 WBC (Bld) 0.3 % Normal 0.0-2.5 A [facility] ([place]) Comment on above: Performed By: #### A DIFF, CBC, MDW, GFR, CMP, TROPHS, PBNP, ANEU #### [address] [address] Eosinophil, Absolute 0.1 10 3/mcL Normal 0.0-0.7 [facility] ([place]) Comment on above: Performed By: #### A DIFF, CBC, MDW, GFR, CMP, TROPHS, PBNP, ANEU #### [address] [address] Eosinophils/100 WBC (Bld) 1.4 % Normal 0.0-6.0 [facility] ([place]) Comment on above: Performed By: #### A DIFF, CBC, MDW, GFR, CMP, TROPHS, PBNP, ANEU #### [address] [address] Lymphocyte, Absolute 1.8 10 3/mcL Normal 0.9-4.3 [facility] ([place]) Comment on above: Performed By: #### A DIFF, CBC, MDW, GFR, CMP, TROPHS, PBNP, ANEU #### [address] [address] Lymphocytes/100 WBC (Bld) 24.4 % Normal 20.0-40.0 [facility] ([place]) Comment on above: Performed By: #### A DIFF, CBC, MDW, GFR, CMP, TROPHS, PBNP, ANEU #### [address] [address] Monocyte, Absolute 0.9 10 3/mcL Normal 0.1-1.4 [facility] ([place] Comment on above: Performed By: #### A DIFF, CBC, MDW, GFR, CMP, TROPHS, PBNP, ANEU #### [address] [address] Monocytes/100 WBC (Bld) 11.9 % Normal 2.0-13.0 [facility] ([place]) Comment on above: Performed By: #### A DIFF, CBC, MDW, GFR, CMP, TROPHS, PBNP, ANEU #### [address] [address] Neutrophils/100 WBC (Bld) 62.0 % Normal 50.0-75.0 [facility] ([place]) Comment on above: Performed By: #### A DIFF, CBC, MDW, GFR, CMP, TROPHS, PBNP, ANEU #### [address] [address] .GFRon 06-20-2023 GFR >60 Normal [facility] ([place]) Comment on above: Result Comment: GFR Population [...] MDW, GFR, CMP, TROPHS, PBNP, ANEU #### [address] [address] GFR Non- 57 ml/min/1.73sqm Normal [facility] ([place]) Comment on above: Result Comment: GFR Population [...] MDW, GFR, CMP, TROPHS, PBNP, ANEU #### [address] [address] .NEUABSon 06-20-2023 Neutrophil, Absolute 4.5 10 3/mcL Normal 2.3-8.1 [facility] ([place]) Comment on above: Performed By: #### A DIFF, CBC, MDW, GFR, CMP, TROPHS, PBNP, ANEU #### [address] [address] BMPon 06-20-2023 BUN/Creatinine Ratio 24.5 ratio High 10.0-22.0 [facility] ([place]) Comment on above: Performed By: #### A DIFF, CBC, MDW, GFR, CMP, TROPHS, PBNP, ANEU #### [address] [address] Calcium [Mass/Vol] 9.7 mg/dL Normal 8.7-10.4 [facility] ([place]) Comment on above: Performed By: #### A DIFF, CBC, MDW, GFR, CMP, TROPHS, PBNP, ANEU #### [address] [address] Chloride [Moles/Vol] 99 mmol/L Normal 98-110 [facility] ([place]) Comment on above: Performed By: #### A DIFF, CBC, MDW, GFR, CMP, TROPHS, PBNP, ANEU #### [address] [address] CO2 [Moles/Vol] 33 mmol/L High 22-32 [facility] ([place]) Comment on above: Performed By: #### A DIFF, CBC, MDW, GFR, CMP, TROPHS, PBNP, ANEU #### [address] [address] Creatinine [Mass/Vol] 0.94 mg/dL Normal 0.50-1.20 [facility] ([place]) Comment on above: Performed By: #### A DIFF, CBC, MDW, GFR, CMP, TROPHS, PBNP, ANEU #### [address] [address] Electrolyte Balance 4.0 mEq/L Normal 4.0-15.0 [facility] ([place]) Comment on above: Performed By: #### A DIFF, CBC, MDW, GFR, CMP, TROPHS, PBNP, ANEU #### [place] [id number] Glucose [Mass/Vol] 125 mg/dL High 82-115 [facility] ([place]) Comment on above: Performed By: #### A DIFF, CBC, MDW, GFR, CMP, TROPHS, PBNP, ANEU #### [place] [id number] Potassium [Moles/Vol] 3.4 mmol/L Low 3.5-5.0 [facility] ([place]) Comment on above: Performed By: #### A DIFF, CBC, MDW, GFR, CMP, TROPHS, PBNP, ANEU #### [place] [id number] Sodium [Moles/Vol] 136 mmol/L Normal 136-145 [facility] ([place]) Comment on above: Performed By: #### A DIFF, CBC, MDW, GFR, CMP, TROPHS, PBNP, ANEU #### [place] [id number] Urea nitrogen [Mass/Vol] 23.0 mg/dL High 8.0-22.0 [facility] ([place]) Comment on above: Performed By: #### A DIFF, CBC, MDW, GFR, CMP, TROPHS, PBNP, ANEU #### [place] [id number] CBCon 06-20-2023 Erythrocyte distribution width (RBC) [Ratio] 14.2 % Normal 11.5-15.5 [facility] ([place]) Comment on above: Performed By: #### A DIFF, CBC, MDW, GFR, CMP, TROPHS, PBNP, ANEU #### [place] [id number] Hematocrit (Bld) [Volume fraction] 42.1 % Normal 34.0-46.0 [facility] ([place]) Comment on above: Performed By: #### A DIFF, CBC, MDW, GFR, CMP, TROPHS, PBNP, ANEU #### [place] [id number] Hgb 14.2 G/dL Normal 12.0-16.0 [facility] ([place]) Comment on above: Performed By: #### A DIFF, CBC, MDW, GFR, CMP, TROPHS, PBNP, ANEU #### [place] [id number] MCH (RBC) [Entitic mass] 30.5 pg Normal 27.0-33.0 [facility] ([place]) Comment on above: Performed By: #### A DIFF, CBC, MDW, GFR, CMP, TROPHS, PBNP, ANEU #### [place] [address] MCHC 33.8 G/dL Normal 32.0-36.0 [facility] ([place]) Comment on above: Performed By: #### A DIFF, CBC, MDW, GFR, CMP, TROPHS, PBNP, ANEU #### [place] [address] MCV (RBC) [Entitic vol] 90.3 fL Normal 80.0-99.0 [facility] ([place]) Comment on above: Performed By: #### A DIFF, CBC, MDW, GFR, CMP, TROPHS, PBNP, ANEU #### [place] [address] Platelet 99 10 3/mcL Low 150-450 [facility] ([place]) Comment on above: Performed By: #### A DIFF, CBC, MDW, GFR, CMP, TROPHS, PBNP, ANEU #### [place] [address] Platelet mean volume (Bld) [Entitic vol] 7.9 fL Normal 6.6-10.5 [facility] ([place]) Comment on above: Performed By: #### A DIFF, CBC, MDW, GFR, CMP, TROPHS, PBNP, ANEU #### [place] [address] RBC 4.67 10 6/mcL Normal 4.10-5.30 [facility] ([place]) Comment on above: Performed By: #### A DIFF, CBC, MDW, GFR, CMP, TROPHS, PBNP, ANEU #### [place] [id number] [place] [address] WBC 7.3 10 3/mcL Normal 4.5-10.8 [facility] ([place]) Comment on above: Performed By: #### A DIFF, CBC, MDW, GFR, CMP, TROPHS, PBNP, ANEU #### [address] [address] LABORATORYOrdered By: SYSTEM SYSTEM on 06-20-2023 Basophils [...] Basophil, Absolute 0.0 10 3/mcL Normal 0.0-0.3 [facility] ([place]) Comment on above: Performed By: #### A DIFF, CBC, MDW, GFR, CMP, TROPHS, PBNP, ANEU #### [address] [address] Basophils/100 WBC (Bld) 0.1 % Normal 0.0-2.5 [facility] ([place]) Comment on above: Performed By: #### A DIFF, CBC, MDW, GFR, CMP, TROPHS, PBNP, ANEU #### [address] [address] Eosinophil, Absolute 0.0 10 3/mcL Normal 0.0-0.7 [facility] ([place]) Comment on above: Performed By: #### A DIFF, CBC, MDW, GFR, CMP, TROPHS, PBNP, ANEU #### [address] [address] Eosinophils/100 WBC (Bld) 0.1 % Normal 0.0-6.0 [facility] ([place]) Comment on above: Performed By: #### A DIFF, CBC, MDW, GFR, CMP, TROPHS, PBNP, ANEU #### [address] [address] Lymphocyte, Absolute 1.1 10 3/mcL Normal 0.9-4.3 [facility] ([place]) Comment on above: Performed By: #### A DIFF, CBC, MDW, GFR, CMP, TROPHS, PBNP, ANEU #### [address] [address] Lymphocytes/100 WBC (Bld) 14.2 % Low 20.0-40.0 [facility] ([place]) Comment on above: Performed By: #### A DIFF, CBC, MDW, GFR, CMP, TROPHS, PBNP, ANEU #### [address] [address] Monocyte, Absolute 0.8 10 3/mcL Normal 0.1-1.4 [facility] ([place]) Comment on above: Performed By: #### A DIFF, CBC, MDW, GFR, CMP, TROPHS, PBNP, ANEU #### [address] [address] Monocytes/100 WBC (Bld) 10.3 % Normal 2.0-13.0 [facility] ([place]) Comment on above: Performed By: #### A DIFF, CBC, MDW, GFR, CMP, TROPHS, PBNP, ANEU #### [address] [address] Neutrophils/100 WBC (Bld) 75.3 % High 50.0-75.0 [facility] ([place]) Comment on above: Performed By: #### A DIFF, CBC, MDW, GFR, CMP, TROPHS, PBNP, ANEU #### [address] [address] .GFRon 06-19-2023 GFR Non- 53 ml/min/1.73sqm Normal [facility] ([place]) Comment on above: Result Comment: GFR Population [...] MDW, GFR, CMP, TROPHS, PBNP, ANEU #### [address] [address] GFR >60 Normal [facility] ([place]) Comment on above: Result Comment: GFR Population [...] MDW, GFR, CMP, TROPHS, PBNP, ANEU #### [address] [address] .NEUABSon 06-19-2023 Neutrophil, Absolute 5.8 10 3/mcL Normal 2.3-8.1 [facility] ([place]) Comment on above: Performed By: #### A DIFF, CBC, MDW, GFR, CMP, TROPHS, PBNP, ANEU #### [address] [address] CBCon 06-19-2023 Erythrocyte distribution width (RBC) [Ratio] 14.4 % Normal 11.5-15.5 [facility] ([place]) Comment on above: Order Comment: recol lect - clotted - 06/19/2023 06:37:34 EDT Performed By: #### A DIFF, CBC, MDW, GFR, CMP, TROPHS, PBNP, ANEU #### [place] [address] Hematocrit (Bld) [Volume fraction] 41.1 % Normal 34.0-46.0 [facility] ([place]) Comment on above: Order Comment: recol lect - clotted - 06/19/2023 06:37:34 EDT Performed By: #### A DIFF, CBC, MDW, GFR, CMP, TROPHS, PBNP, ANEU #### [place] [address] Hgb 14.0 G/dL Normal 12.0-16.0 [facility] ([place]) Comment on above: Order Comment: recol lect - clotted - 06/19/2023 06:37:34 EDT Performed By: #### A DIFF, CBC, MDW, GFR, CMP, TROPHS, PBNP, ANEU #### [place] [address] MCH (RBC) [Entitic mass] 30.2 pg Normal 27.0-33.0 [facility] ([place]) Comment on above: Order Comment: recol lect - clotted - 06/19/2023 06:37:34 EDT Performed By: #### A DIFF, CBC, MDW, GFR, CMP, TROPHS, PBNP, ANEU #### [place] [address] MCHC 34.0 G/dL Normal 32.0-36.0 [facility] ([place]) Comment on above: Order Comment: recol lect - clotted - 06/19/2023 06:37:34 EDT Performed By: #### A DIFF, CBC, MDW, GFR, CMP, TROPHS, PBNP, ANEU #### [address] [address] MCV (RBC) [Entitic vol] 88.8 fL Normal 80.0-99.0 [facility] ([place]) Comment on above: Order Comment: recol lect - clotted - 06/19/2023 06:37:34 EDT Performed By: #### A DIFF, CBC, MDW, GFR, CMP, TROPHS, PBNP, ANEU #### [place] [id number] Platelet 107 10 3/mcL Low 150-450 [facility] ([place]) Comment on above: Order Comment: recol lect - clotted - 06/19/2023 06:37:34 EDT Performed By: #### A DIFF, CBC, MDW, GFR, CMP, TROPHS, PBNP, ANEU #### [place] [address] Platelet mean volume (Bld) [Entitic vol] 7.7 fL Normal 6.6-10.5 [facility] ([place]) Comment on above: Order Comment: recol lect - clotted - 06/19/2023 06:37:34 EDT Performed By: #### A DIFF, CBC, MDW, GFR, CMP, TROPHS, PBNP, ANEU #### [place] [address] RBC 4.62 10 6/mcL Normal 4.10-5.30 [facility] ([place]) Comment on above: Order Comment: recol lect - clotted - 06/19/2023 06:37:34 EDT Performed By: #### A DIFF, CBC, MDW, GFR, CMP, TROPHS, PBNP, ANEU #### [place] [id number] WBC 7.7 10 3/mcL Normal 4.5-10.8 [facility] ([place]) Comment on above: Order Comment: recol lect - clotted - 06/19/2023 06:37:34 EDT Performed By: #### A DIFF, CBC, MDW, GFR, CMP, TROPHS, PBNP, ANEU #### [address] [address] CMPon 04-11-2024 Albumin Level 3.6 G/dL Normal 3.2-4.8 [facility] ([place]) Comment on above: Performed By: #### A DIFF, CBC, MDW, GFR, CMP, TROPHS, PBNP, ANEU #### [place] [address] Albumin/Globulin [Mass ratio] 1.1 {ratio} Normal 0.9-1.6 [facility] ([place]) Comment on above: Performed By: #### A DIFF, CBC, MDW, GFR, CMP, TROPHS, PBNP, ANEU #### [place] [id number] ALP [Catalytic activity/Vol] 95 U/L Normal 38-126 [facility] ([place]) Comment on above: Performed By: #### A DIFF, CBC, MDW, GFR, CMP, TROPHS, PBNP, ANEU #### [place] [id number] ALT [Catalytic activity/Vol] 15 U/L Normal 10-49 [facility] ([place]) Comment on above: Performed By: #### A DIFF, CBC, MDW, GFR, CMP, TROPHS, PBNP, ANEU #### [place] [id number] AST [Catalytic activity/Vol] 20 U/L Normal 8-34 [facility] ([place]) Comment on above: Performed By: #### A DIFF, CBC, MDW, GFR, CMP, TROPHS, PBNP, ANEU #### [place] [id number] Bili Total 0.70 mg/dL Normal 0.20-1.20 [facility] ([place]) Comment on above: Result Comment: Use of this assay is not recommended for patients undergoing treatment with eltrombopag due to the potential for falsely elevated results. Performed By: #### A DIFF, CBC, MDW, GFR, CMP, TROPHS, PBNP, ANEU #### [place] [id number] BUN/Creatinine Ratio 20.0 ratio Normal 10.0-22.0 [facility] ([place]) Comment on above: Performed By: #### A DIFF, CBC, MDW, GFR, CMP, TROPHS, PBNP, ANEU #### [address] [address] Calcium [Mass/Vol] 10.6 mg/dL High 8.7-10.4 [facility] ([place]) Comment on above: Performed By: #### A DIFF, CBC, MDW, GFR, CMP, TROPHS, PBNP, ANEU #### [address] [address] Chloride [Moles/Vol] 95 mmol/L Low 98-110 [facility] ([place]) Comment on above: Performed By: #### A DIFF, CBC, MDW, GFR, CMP, TROPHS, PBNP, ANEU #### [address] [address] CO2 [Moles/Vol] 34 mmol/L High 22-32 [facility] ([place]) Comment on above: Performed By: #### A DIFF, CBC, MDW, GFR, CMP, TROPHS, PBNP, ANEU #### [address] [address] Creatinine [Mass/Vol] 1.00 mg/dL Normal 0.50-1.20 [facility] ([place]) Comment on above: Performed By: #### A DIFF, CBC, MDW, GFR, CMP, TROPHS, PBNP, ANEU #### [address] [address] Electrolyte Balance 10.0 mEq/L Normal 4.0-15.0 [facility] ([place]) Comment on above: Performed By: #### A DIFF, CBC, MDW, GFR, CMP, TROPHS, PBNP, ANEU #### [address] [address] Globulin 3.3 G/dL Normal 1.5-3.8 [facility] ([place]) Comment on above: Performed By: #### A DIFF, CBC, MDW, GFR, CMP, TROPHS, PBNP, ANEU #### [address] [address] Glucose [Mass/Vol] 120 mg/dL High 82-115 [facility] ([place]) Comment on above: Performed By: #### A DIFF, CBC, MDW, GFR, CMP, TROPHS, PBNP, ANEU #### [address] [address] Potassium [Moles/Vol] 3.6 mmol/L Normal 3.5-5.0 [facility] ([place]) Comment on above: Performed By: #### A DIFF, CBC, MDW, GFR, CMP, TROPHS, PBNP, ANEU #### [address] [address] Sodium [Moles/Vol] 139 mmol/L Normal 136-145 [facility] ([place]) Comment on above: Performed By: #### A DIFF, CBC, MDW, GFR, CMP, TROPHS, PBNP, ANEU #### [place] [id number] Total Protein 6.9 G/dL Normal 5.7-8.2 [facility] ([place]) Comment on above: Result Comment: No te - New Reference Range in effect 19 Performed By: #### A DIFF, CBC, MDW, GFR, CMP, TROPHS, PBNP, ANEU #### [place] [address] Urea nitrogen [Mass/Vol] 20.0 mg/dL Normal 8.0-22.0 [facility] ([place]) Comment on above: Performed By: #### A DIFF, CBC, MDW, GFR, CMP, TROPHS, PBNP, ANEU #### [address] [address] LABORATORYOrdered By: SYSTEM SYSTEM on 06-19-2023 Basophils [...] ng/L Male: 0-54 ng/L Testing performed on [employer] analyzer using direct chemiluminescent technology. Urea nitrogen [Mass/Vol] 20.0 mg/dL Normal 8.0 - 22.0 mg/dL ADM SS Urea nitrogen/Creatinine [Mass ratio] 20.0 ratio Normal 10.0 - 22.0 ratio ADM SS MGon 06-19-2023 Magnesium [Mass/Vol] 1.8 mg/dL Normal 1.6-2.4 [facility] ([place]) Comment on above: Performed By: #### A DIFF, CBC, MDW, GFR, CMP, TROPHS, PBNP, ANEU #### [address] [address] TROPHSon 06-19-2023 High Sensitivity Troponin I 9 ng/L Normal 0-34 [facility] ([place]) Comment on above: Result Comment: High Sensitive Troponin I Reference Ranges: Female: 0-34 ng/L Male: 0-54 ng/L Testing performed on [employer] IM analyzer using direct chemiluminescent technology. Performed By: #### A DIFF, CBC, MDW, GFR, CMP, TROPHS, PBNP, ANEU #### [address] [address] .Auto Diffon 06-18-2023 Basophil, Absolute 0.0 10 3/mcL Normal 0.0-0.3 [facility] ([place]) Comment on above: Performed By: #### A DIFF, CBC, MDW, GFR, CMP, TROPHS, PBNP, ANEU #### [address] [address] Basophils/100 WBC (Bld) 0.5 % Normal 0.0-2.5 [facility] ([place]) Comment on above: Performed By: #### A DIFF, CBC, MDW, GFR, CMP, TROPHS, PBNP, ANEU #### [address] [address] Eosinophil, Absolute 0.2 10 3/mcL Normal 0.0-0.7 [facility] ([place]) Comment on above: Performed By: #### A DIFF, CBC, MDW, GFR, CMP, TROPHS, PBNP, ANEU #### [address] [address] Eosinophils/100 WBC (Bld) 4.1 % Normal 0.0-6.0 [facility] ([place]) Comment on above: Performed By: #### A DIFF, CBC, MDW, GFR, CMP, TROPHS, PBNP, ANEU #### [address] [address] Lymphocyte, Absolute 1.5 10 3/mcL Normal 0.9-4.3 [facility] ([place]) Comment on above: Performed By: #### A DIFF, CBC, MDW, GFR, CMP, TROPHS, PBNP, ANEU #### [address] [address] Lymphocytes/100 WBC (Bld) 24.1 % Normal 20.0-40.0 [facility] ([place]) Comment on above: Performed By: #### A DIFF, CBC, MDW, GFR, CMP, TROPHS, PBNP, ANEU #### [address] [address] Monocyte, Absolute 0.6 10 3/mcL Normal 0.1-1.4 [facility] ([place]) Comment on above: Performed By: #### A DIFF, CBC, MDW, GFR, CMP, TROPHS, PBNP, ANEU #### [address] [address] Monocytes/100 WBC (Bld) 10.0 % Normal 2.0-13.0 [facility] ([place]) Comment on above: Performed By: #### A DIFF, CBC, MDW, GFR, CMP, TROPHS, PBNP, ANEU #### [address] [address] Neutrophils/100 WBC (Bld) 61.3 % Normal 50.0-75.0 [facility] ([place]) Comment on above: Performed By: #### A DIFF, CBC, MDW, GFR, CMP, TROPHS, PBNP, ANEU #### [address] [address] .GFRon 06-18-2023 GFR 54 ml/min/1.73sqm Normal [facility] ([place]) Comment on above: Result Comment: GFR [...] MDW, GFR, CMP, TROPHS, PBNP, ANEU #### [address] [address] GFR Non- 45 ml/min/1.73sqm Normal [facility] ([place]) Comment on above: Result Comment: GFR Population [...] MDW, GFR, CMP, TROPHS, PBNP, ANEU #### [place] [address] .MDWon 06-18-2023 Monocyte Distribution Width 18.33 Normal 0.00-20.00 [facility] ([place]) Comment on above: Result Comment: For ED adult patients suspected of sepsis, MDW<=20.0 does not rule out sepsis or risk of sepsis Performed By: #### A DIFF, CBC, MDW, GFR, CMP, TROPHS, PBNP, ANEU #### [address] [address] .NEUABSon 06-18-2023 Neutrophil, Absolute 3.7 10 3/mcL Normal 2.3-8.1 [facility] ([place]) Comment on above: Performed By: #### A DIFF, CBC, MDW, GFR, CMP, TROPHS, PBNP, ANEU #### [address] [address] BGon 06-18-2023 Base excess Calc (Bld) [Moles/Vol] 7.9 mmol/L Normal [facility] ([place]) Comment on above: Performed By: #### A DIFF, CBC, MDW, GFR, CMP, TROPHS, PBNP, ANEU #### [address] [address] CO2 [Moles/Vol] 35.3 mmol/L High 22.0-30.0 [facility] ([place]) Comment on above: Performed By: #### A DIFF, CBC, MDW, GFR, CMP, TROPHS, PBNP, ANEU #### [address] [address] HCO3 (Bld) [Moles/Vol] 33.7 mmol/L High 21.0-29.0 [facility] ([place]) Comment on above: Performed By: #### A DIFF, CBC, MDW, GFR, CMP, TROPHS, PBNP, ANEU #### [address] [address] Oxygen (Bld) [Partial pressure] 63.6 mm[Hg] Low 74.0-108.0 [facility] ([place]) Comment on above: Performed By: #### A DIFF, CBC, MDW, GFR, CMP, TROPHS, PBNP, ANEU #### [address] [address] Oxygen saturation in Blood 92.9 % Normal 92.0-96.0 [facility] ([place]) Comment on above: Performed By: #### A DIFF, CBC, MDW, GFR, CMP, TROPHS, PBNP, ANEU #### [address] [address] pCO2 51.5 mmHg High 32.0-46.0 [facility] ([place]) Comment on above: Performed By: #### A DIFF, CBC, MDW, GFR, CMP, TROPHS, PBNP, ANEU #### [address] [address] pH (Bld) 7.434 [pH] Normal 7.380-7.460 [facility] ([place]) Comment on above: Performed By: #### A DIFF, CBC, MDW, GFR, CMP, TROPHS, PBNP, ANEU #### [address] [address] CBCon 06-18-2023 Erythrocyte distribution width (RBC) [Ratio] 14.3 % Normal 11.5-15.5 [facility] ([place]) Comment on above: Performed By: #### A DIFF, CBC, MDW, GFR, CMP, TROPHS, PBNP, ANEU #### [place] [id number] Hematocrit (Bld) [Volume fraction] 44.3 % Normal 34.0-46.0 [facility] ([place]) Comment on above: Performed By: #### A DIFF, CBC, MDW, GFR, CMP, TROPHS, PBNP, ANEU #### [place] [address] Hgb 15.1 G/dL Normal 12.0-16.0 [facility] ([place]) Comment on above: Performed By: #### A DIFF, CBC, MDW, GFR, CMP, TROPHS, PBNP, ANEU #### [place] [address] MCH (RBC) [Entitic mass] 31.1 pg Normal 27.0-33.0 [facility] ([place]) Comment on above: Performed By: #### A DIFF, CBC, MDW, GFR, CMP, TROPHS, PBNP, ANEU #### [place] [id number] MCHC 34.1 G/dL Normal 32.0-36.0 [facility] ([place]) Comment on above: Performed By: #### A DIFF, CBC, MDW, GFR, CMP, TROPHS, PBNP, ANEU #### [place] [id number] MCV (RBC) [Entitic vol] 91.1 fL Normal 80.0-99.0 [facility] ([place]) Comment on above: Performed By: #### A DIFF, CBC, MDW, GFR, CMP, TROPHS, PBNP, ANEU #### [place] [id number] Platelet 139 10 3/mcL Low 150-450 [facility] ([place]) Comment on above: Performed By: #### A DIFF, CBC, MDW, GFR, CMP, TROPHS, PBNP, ANEU #### [place] [address] Platelet mean volume (Bld) [Entitic vol] 8.8 fL Normal 6.6-10.5 [facility] ([place]) Comment on above: Performed By: #### A DIFF, CBC, MDW, GFR, CMP, TROPHS, PBNP, ANEU #### [place] [address] RBC 4.87 10 6/mcL Normal 4.10-5.30 [facility] ([place]) Comment on above: Performed By: #### A DIFF, CBC, MDW, GFR, CMP, TROPHS, PBNP, ANEU #### [place] [address] WBC 6.0 10 3/mcL Normal 4.5-10.8 [facility] ([place]) Comment on above: Performed By: #### A DIFF, CBC, MDW, GFR, CMP, TROPHS, PBNP, ANEU #### [place] [address] CMPon 06-18-2023 Albumin Level 4.1 G/dL Normal 3.2-4.8 [facility] ([place]) Comment on above: Performed By: #### A DIFF, CBC, MDW, GFR, CMP, TROPHS, PBNP, ANEU #### [place] [address] Albumin/Globulin [Mass ratio] 1.2 {ratio} Normal 0.9-1.6 [facility] ([place]) Comment on above: Performed By: #### A DIFF, CBC, MDW, GFR, CMP, TROPHS, PBNP, ANEU #### [place] [id number] ALP [Catalytic activity/Vol] 105 U/L Normal 38-126 [facility] ([place]) Comment on above: Performed By: #### A DIFF, CBC, MDW, GFR, CMP, TROPHS, PBNP, ANEU #### [address] [address] ALT [Catalytic activity/Vol] 14 U/L Normal 10-49 [facility] ([place]) Comment on above: Performed By: #### A DIFF, CBC, MDW, GFR, CMP, TROPHS, PBNP, ANEU #### [address] [address] AST [Catalytic activity/Vol] 20 U/L Normal 8-34 [facility] ([place]) Comment on above: Performed By: #### A DIFF, CBC, MDW, GFR, CMP, TROPHS, PBNP, ANEU #### [address] [address] Bili Total 0.60 mg/dL Normal 0.20-1.20 [facility] ([place]) Comment on above: Result Comment: Use of this assay is not recommended for patients undergoing treatment with eltrombopag due to the potential for falsely elevated results. Performed By: #### A DIFF, CBC, MDW, GFR, CMP, TROPHS, PBNP, ANEU #### [address] [address] BUN/Creatinine Ratio 14.8 ratio Normal 10.0-22.0 [facility] ([place]) Comment on above: Performed By: #### A DIFF, CBC, MDW, GFR, CMP, TROPHS, PBNP, ANEU #### [address] [address] Calcium [Mass/Vol] 11.1 mg/dL High 8.7-10.4 [facility] ([place]) Comment on above: Performed By: #### A DIFF, CBC, MDW, GFR, CMP, TROPHS, PBNP, ANEU #### [address] [address] Chloride [Moles/Vol] 96 mmol/L Low 98-110 [facility] ([place]) Comment on above: Performed By: #### A DIFF, CBC, MDW, GFR, CMP, TROPHS, PBNP, ANEU #### [address] [address] CO2 [Moles/Vol] 37 mmol/L High 22-32 [facility] ([place]) Comment on above: Performed By: #### A DIFF, CBC, MDW, GFR, CMP, TROPHS, PBNP, ANEU #### [address] [address] Creatinine [Mass/Vol] 1.15 mg/dL Normal 0.50-1.20 [facility] ([place]) Comment on above: Performed By: #### A DIFF, CBC, MDW, GFR, CMP, TROPHS, PBNP, ANEU #### [address] [address] Electrolyte Balance 3.0 mEq/L Low 4.0-15.0 [facility] ([place]) Comment on above: Performed By: #### A DIFF, CBC, MDW, GFR, CMP, TROPHS, PBNP, ANEU #### [address] [address] Globulin 3.5 G/dL Normal 1.5-3.8 [facility] ([place]) Comment on above: Performed By: #### A DIFF, CBC, MDW, GFR, CMP, TROPHS, PBNP, ANEU #### [address] [address] Glucose [Mass/Vol] 94 mg/dL Normal 82-115 [facility] ([place]) Comment on above: Performed By: #### A DIFF, CBC, MDW, GFR, CMP, TROPHS, PBNP, ANEU #### [address] [address] Potassium [Moles/Vol] 3.5 mmol/L Normal 3.5-5.0 [facility] ([place]) Comment on above: Performed By: #### A DIFF, CBC, MDW, GFR, CMP, TROPHS, PBNP, ANEU #### [address] [address] Sodium [Moles/Vol] 136 mmol/L Normal 136-145 [facility] ([place]) Comment on above: Performed By: #### A DIFF, CBC, MDW, GFR, CMP, TROPHS, PBNP, ANEU #### [place] [address] Total Protein 7.6 G/dL Normal 5.7-8.2 [facility] ([place]) Comment on above: Result Comment: No te - New Reference Range in effect 19 Performed By: #### A DIFF, CBC, MDW, GFR, CMP, TROPHS, PBNP, ANEU #### [place] [address] Urea nitrogen [Mass/Vol] 17.0 mg/dL Normal 8.0-22.0 [facility] ([place]) Comment on above: Performed By: #### A DIFF, CBC, MDW, GFR, CMP, TROPHS, PBNP, ANEU #### [place] [address] DDHSon 06-18-2023 D-Dimer HS <200 Normal 0-230 [facility] ([place]) Comment on above: Order Comment: ER is [...] MDW, GFR, CMP, TROPHS, PBNP, ANEU #### [place] [address] LABORATORYOrdered By: SYSTEM SYSTEM on 06-18-2023 TSH [...] AH Main Rapid Comm SS LABORATORYOrdered By: Shabbri Pederson on 06-18-2023 D-Dimer HS ng/mL D-DU [...] ng/L Male: 0-54 ng/L Testing performed on [employer] IM analyzer using direct chemiluminescent technology. PBNPon 06-18-2023 Natriuretic peptide B (Bld) [Mass/Vol] 123 pg/mL Normal 0-1800 [facility] ([place]) Comment on above: Result Comment: NT-p roBNP results of less than 300 pg/mL effectively rules out acute congestive heart failure with 99% negative predictive value. Performed By: #### B MP, GFR, TSH #### [place] [address] TROPHSon 06-18-2023 High Sensitivity Troponin I 8 ng/L Normal 0-34 [facility] ([place]) Comment on above: Result Comment: High Sensitive Troponin I Reference Ranges: Female: 0-34 ng/L Male: 0-54 ng/L Testing performed on [employer] IM analyzer using direct chemiluminescent technology. Performed By: #### A DIFF, CBC, MDW, GFR, CMP, TROPHS, PBNP, ANEU #### [place] [address] High Sensitivity Troponin I 8 ng/L Normal 0-34 [facility] ([place] Comment on above: Result Comment: High Sensitive Troponin I Reference Ranges: Female: 0-34 ng/L Male: 0-54 ng/L Testing performed on [employer] IM analyzer using direct chemiluminescent technology. Performed By: #### B MP, GFR, TSH #### [place] [address] High Sensitivity Troponin I 8 ng/L Normal 0-34 [facility] ([place]) Comment on above: Result Comment: High Sensitive Troponin I Reference Ranges: Female: 0-34 ng/L Male: 0-54 ng/L Testing performed on [employer] IM analyzer using direct chemiluminescent technology. Performed By: #### A DIFF, CBC, MDW, GFR, CMP, TROPHS, PBNP, ANEU #### [place] [address] TSHon 06-18-2023 TSH 31.216 mIU/mL High 0.550-4.780 [facility] ([place]) Comment on above: Order Comment: add o n lab Result Comment: No te - New Reference Range in effect 19 Performed By: #### A DIFF, CBC, MDW, GFR, CMP, TROPHS, PBNP, ANEU #### [place] [address] UAon 06-18-2023 Color (U) Yellow Normal [facility] ([place]) Comment on above: Performed By: #### B MP, GFR, TSH #### [place] [address] Glucose (U) [Mass/Vol] Negative Normal Negative [facility] ([place]) Comment on above: Performed By: #### B MP, GFR, TSH #### [place] [address] Ketones Ql (U) Negative Normal Neg-Trace [facility] ([place]) Comment on above: Performed By: #### B MP, GFR, TSH #### [place] [address] UA Appear Clear Normal Clear [facility] ([place] Comment on above: Performed By: #### B MP, GFR, TSH #### [address] [address] UA Blood Negative Normal Neg-Trace [facility] ([place]) Comment on above: Performed By: #### B MP, GFR, TSH #### [address] [address] UA Leuk Est Negative Normal Negative [facility] ([place] Comment on above: Performed By: #### B MP, GFR, TSH #### [address] [address] UA Nitrite Negative Normal Negative [facility] ([place] Comment on above: Performed By: #### B MP, GFR, TSH #### [address] [address] UA pH 7.0 Normal 5.0 - 8.0 [facility] ([place] Comment on above: Performed By: #### B MP, GFR, TSH #### [place] [address] UA Protein Negative Normal Negative [facility] ([place] Comment on above: Performed By: #### B MP, GFR, TSH #### [place] [phone] UA Spec Grav 1.020 Normal 1.006-1.029 [facility] ([place] Comment on above: Performed By: #### B MP, GFR, TSH #### [place] [address] UA Specimen Type Clean Catch Normal [facility] ([place] Comment on above: Performed By: #### B MP, GFR, TSH #### [address] [address] UA Urobilinogen 0.2 E.U./dL Normal 0.2-1.0 [facility] ([place] Comment on above: Performed By: #### B MP, GFR, TSH #### [place] [address] Urobilinogen (U) [Mass/Vol] Negative Normal Neg-Trace [facility] ([place] Comment on above: Performed By: #### B MP, GFR, TSH #### [address] [address] XR CHEST 1 VIEWon 06-18-2023 XR CHEST [...] 06/18/2023 8:22:34 AM Ordering Provider: JACKSON Hassan [facility] ([place]) .Auto Diffon 05-23-2023 Basophil, Absolute 0.0 10 3/mcL Normal 0.0-0.3 [facility] ([place]) Comment on above: Performed By: #### A DIFF, CBC, MDW, GFR, CMP, TROPHS, PBNP, ANEU #### [address] [address] Basophils/100 WBC (Bld) 0.4 % Normal 0.0-2.5 A [facility] ([place]) Comment on above: Performed By: #### A DIFF, CBC, MDW, GFR, CMP, TROPHS, PBNP, ANEU #### [address] [address] Eosinophil, Absolute 0.2 10 3/mcL Normal 0.0-0.7 [facility] ([place]) Comment on above: Performed By: #### A DIFF, CBC, MDW, GFR, CMP, TROPHS, PBNP, ANEU #### [address] [address] Eosinophils/100 WBC (Bld) 4.2 % Normal 0.0-6.0 [facility] ([place]) Comment on above: Performed By: #### A DIFF, CBC, MDW, GFR, CMP, TROPHS, PBNP, ANEU #### [address] [address] Lymphocyte, Absolute 1.5 10 3/mcL Normal 0.9-4.3 [facility] ([place]) Comment on above: Performed By: #### A DIFF, CBC, MDW, GFR, CMP, TROPHS, PBNP, ANEU #### [address] [address] Lymphocytes/100 WBC (Bld) 29.8 % Normal 20.0-40.0 [facility] ([place]) Comment on above: Performed By: #### A DIFF, CBC, MDW, GFR, CMP, TROPHS, PBNP, ANEU #### [address] [address] Monocyte, Absolute 0.7 10 3/mcL Normal 0.1-1.4 [facility] ([place]) Comment on above: Performed By: #### A DIFF, CBC, MDW, GFR, CMP, TROPHS, PBNP, ANEU #### [address] [address] Monocytes/100 WBC (Bld) 14.2 % High 2.0-13.0 [facility] ([place]) Comment on above: Performed By: #### A DIFF, CBC, MDW, GFR, CMP, TROPHS, PBNP, ANEU #### [address] [address] Neutrophils/100 WBC (Bld) 51.4 % Normal 50.0-75.0 [facility] ([place]) Comment on above: Performed By: #### A DIFF, CBC, MDW, GFR, CMP, TROPHS, PBNP, ANEU #### [address] [address] .NEUABSon 05-23-2023 Neutrophil, Absolute 2.6 10 3/mcL Normal 2.3-8.1 [facility] ([place]) Comment on above: Performed By: #### A DIFF, CBC, MDW, GFR, CMP, TROPHS, PBNP, ANEU #### [address] [address] CBCon 05-23-2023 Erythrocyte distribution width (RBC) [Ratio] 14.0 % Normal 11.5-15.5 [facility] ([place] Comment on above: Performed By: #### A DIFF, CBC, MDW, GFR, CMP, TROPHS, PBNP, ANEU #### [place] [address] Hematocrit (Bld) [Volume fraction] 42.1 % Normal 34.0-46.0 [facility] ([place] Comment on above: Performed By: #### A DIFF, CBC, MDW, GFR, CMP, TROPHS, PBNP, ANEU #### [place] [address] Hgb 14.2 G/dL Normal 12.0-16.0 [facility] ([place] Comment on above: Performed By: #### A DIFF, CBC, MDW, GFR, CMP, TROPHS, PBNP, ANEU #### [place] [address] MCH (RBC) [Entitic mass] 30.5 pg Normal 27.0-33.0 [facility] ([place] Comment on above: Performed By: #### A DIFF, CBC, MDW, GFR, CMP, TROPHS, PBNP, ANEU #### [place] [phone] MCHC 33.7 G/dL Normal 32.0-36.0 [facility] ([place] Comment on above: Performed By: #### A DIFF, CBC, MDW, GFR, CMP, TROPHS, PBNP, ANEU #### [place] [phone] MCV (RBC) [Entitic vol] 90.6 fL Normal 80.0-99.0 A [facility] ([place]) Comment on above: Performed By: #### A DIFF, CBC, MDW, GFR, CMP, TROPHS, PBNP, ANEU #### [address] [address] Platelet 105 10 3/mcL Low 150-450 [facility] ([place]) Comment on above: Performed By: #### A DIFF, CBC, MDW, GFR, CMP, TROPHS, PBNP, ANEU #### [address] [address] Platelet mean volume (Bld) [Entitic vol] 8.1 fL Normal 6.6-10.5 [facility] ([place] Comment on above: Performed By: #### A DIFF, CBC, MDW, GFR, CMP, TROPHS, PBNP, ANEU #### [place] [address] RBC 4.64 10 6/mcL Normal 4.10-5.30 [facility] ([place]) Comment on above: Performed By: #### A DIFF, CBC, MDW, GFR, CMP, TROPHS, PBNP, ANEU #### [place] [address] WBC 5.0 10 3/mcL Normal 4.5-10.8 [facility] ([place] Comment on above: Performed By: #### A DIFF, CBC, MDW, GFR, CMP, TROPHS, PBNP, ANEU #### [address] [address] PBNPon 05-23-2023 Natriuretic peptide B (Bld) [Mass/Vol] 106 pg/mL Normal 0-1800 [facility] ([place] Comment on above: Result Comment: NT-p roBNP results of less than 300 pg/mL effectively rules out acute congestive heart failure with 99% negative predictive value. Performed By: #### A DIFF, CBC, MDW, GFR, CMP, TROPHS, PBNP, ANEU #### [place] [address] FT4on 02-04-2023 Free T4 [Mass/Vol] 0.91 ng/dL Normal 0.89-1.76 [facility] ([place]) Comment on above: Result Comment: No te - New Reference Range in effect 19 Performed By: #### B MP, GFR, TSH #### [address] [address] .Auto Diffon 02-03-2023 Basophil, Absolute 0.0 10 3/mcL Normal 0.0-0.3 [facility] ([place]) Comment on above: Performed By: #### B MP, GFR, TSH #### [address] [address] Basophils/100 WBC (Bld) 0.2 % Normal 0.0-2.5 [facility] ([place]) Comment on above: Performed By: #### B MP, GFR, TSH #### [address] [address] Eosinophil, Absolute 0.1 10 3/mcL Normal 0.0-0.7 [facility] ([place]) Comment on above: Performed By: #### B MP, GFR, TSH #### [address] [address] Eosinophils/100 WBC (Bld) 2.4 % Normal 0.0-6.0 [facility] ([place]) Comment on above: Performed By: #### B MP, GFR, TSH #### [address] [address] Lymphocyte, Absolute 1.3 10 3/mcL Normal 0.9-4.3 [facility] ([place]) Comment on above: Performed By: #### B MP, GFR, TSH #### [address] [address] Lymphocytes/100 WBC (Bld) 22.5 % Normal 20.0-40.0 [facility] ([place] Comment on above: Performed By: #### B MP, GFR, TSH #### [address] [address] Monocyte, Absolute 0.8 10 3/mcL Normal 0.1-1.4 [facility] ([place]) Comment on above: Performed By: #### B MP, GFR, TSH #### [address] [address] Monocytes/100 WBC (Bld) 13.3 % High 2.0-13.0 [facility] ([place]) Comment on above: Performed By: #### B MP, GFR, TSH #### [address] [address] Neutrophils/100 WBC (Bld) 61.6 % Normal 50.0-75.0 [facility] ([place] Comment on above: Performed By: #### B MP, GFR, TSH #### [address] [address] .GFRon 02-03-2023 GFR >60 Normal [facility] ([place]) Comment on above: Result Comment: GFR Population [...] MDW, GFR, CMP, TROPHS, PBNP, ANEU #### [address] [address] GFR Non- 56 ml/min/1.73sqm Normal [facility] ([place]) Comment on above: Result Comment: GFR Population [...] MDW, GFR, CMP, TROPHS, PBNP, ANEU #### [address] [address] .NEUABSon 02-03-2023 Neutrophil, Absolute 3.6 10 3/mcL Normal 2.3-8.1 [facility] ([place]) Comment on above: Performed By: #### B MP, GFR, TSH #### [address] [address] BMPon 02-03-2023 BUN/Creatinine Ratio 29.5 ratio High 10.0-22.0 [facility] ([place]) Comment on above: Performed By: #### B MP, GFR, TSH #### [place] [address] Calcium [Mass/Vol] 10.3 mg/dL Normal 8.7-10.4 [facility] ([place]) Comment on above: Performed By: #### B MP, GFR, TSH #### [place] [address] Chloride [Moles/Vol] 102 mmol/L Normal 98-110 [facility] ([place]) Comment on above: Performed By: #### B MP, GFR, TSH #### [place] [address] CO2 [Moles/Vol] 35 mmol/L High 22-32 [facility] ([place]) Comment on above: Performed By: #### B MP, GFR, TSH #### [place] [address] Creatinine [Mass/Vol] 0.95 mg/dL Normal 0.50-1.20 [facility] ([place]) Comment on above: Performed By: #### B MP, GFR, TSH #### [place] [address] Electrolyte Balance 1.0 mEq/L Low 4.0-15.0 [facility] ([place]) Comment on above: Performed By: #### B MP, GFR, TSH #### [place] [address] Glucose [Mass/Vol] 103 mg/dL Normal 82-115 [facility] ([place]) Comment on above: Performed By: #### B MP, GFR, TSH #### [place] [phone] Potassium [Moles/Vol] 4.0 mmol/L Normal 3.5-5.0 [facility] ([place]) Comment on above: Result Comment: Spec imen slightly hemolyzed. Performed By: #### B MP, GFR, TSH #### [address] [address] Sodium [Moles/Vol] 138 mmol/L Normal 136-145 [facility] ([place]) Comment on above: Performed By: #### B MP, GFR, TSH #### [place] [phone] Urea nitrogen [Mass/Vol] 28.0 mg/dL High 8.0-22.0 [facility] ([place]) Comment on above: Performed By: #### B MP, GFR, TSH #### [address] [address] CBCon 02-03-2023 Erythrocyte distribution width (RBC) [Ratio] 14.1 % Normal 11.5-15.5 [facility] ([place]) Comment on above: Performed By: #### B MP, GFR, TSH #### [address] [address] Hematocrit (Bld) [Volume fraction] 42.9 % Normal 34.0-46.0 [facility] ([place] Comment on above: Performed By: #### B MP, GFR, TSH #### [address] [address] Hgb 14.1 G/dL Normal 12.0-16.0 [facility] ([place] Comment on above: Performed By: #### B MP, GFR, TSH #### [address] [address] MCH (RBC) [Entitic mass] 31.0 pg Normal 27.0-33.0 [facility] ([place] Comment on above: Performed By: #### B MP, GFR, TSH #### [place] [address] MCHC 32.9 G/dL Normal 32.0-36.0 [facility] ([place] Comment on above: Performed By: #### B MP, GFR, TSH #### [place] [address] MCV (RBC) [Entitic vol] 94.2 fL Normal 80.0-99.0 A [facility] ([place]) Comment on above: Performed By: #### B MP, GFR, TSH #### [place] [address] Platelet 111 10 3/mcL Low 150-450 [facility] ([place]) Comment on above: Performed By: #### B MP, GFR, TSH #### [place] [address] Platelet mean volume (Bld) [Entitic vol] 8.8 fL Normal 6.6-10.5 [facility] ([place]) Comment on above: Performed By: #### B MP, GFR, TSH #### [place] [address] RBC 4.56 10 6/mcL Normal 4.10-5.30 [facility] ([place] Comment on above: Performed By: #### B MP, GFR, TSH #### [place] [address] WBC 5.8 10 3/mcL Normal 4.5-10.8 [facility] ([place]) Comment on above: Performed By: #### B MP, GFR, TSH #### [place] [address] TSHon 02-03-2023 TSH 7.106 mIU/mL High 0.550-4.780 [facility] ([place]) Comment on above: Result Comment: No te - New Reference Range in effect 19 Performed By: #### B MP, GFR, TSH #### [place] [phone] BLOOD BANK COMMENTon 023 BLOOD BANK COMMENT See Comment Normal [facility] Comment on above: Order Comment: Speci men Type: BLOOD SPECIMENOrdering Facility: [facility] Address: [address] [place] [address] Result Comment: SEAN eli, notified Wilmer at 1740 on 12/31/22. Performed By: #### L [id number], TSCR ####[facility] BLOOD BANKCLIA [id number] [place] [address] [place] CBC panel Auto (Bld)on 12-31 Erythrocyte distribution width (RBC) [Ratio] 13.8 % Normal 11.5-15.0 [facility] Comment on above: Order Comment: Speci men Type: BLOOD SPECIMENOrdering Facility: [facility] Address: [address] [place] [address] Performed By: #### 5 8410-2 ####[facility] LABORATORYCLIA [id number] [place] [address] [place] Hematocrit (Bld) [Volume fraction] 39.5 % Normal 36.0-46.0 [facility] Comment on above: Order Comment: Speci men Type: BLOOD SPECIMENOrdering Facility: [facility] Address: [address] [place] [address] Performed By: #### 5 8410-2 ####[facility] LABORATORYCLIA [id number] [place] [address] [place] Hemoglobin (Bld) [Mass/Vol] 13.1 g/dL Normal 11.5-15.5 [facility] Comment on above: Order Comment: Speci men Type: BLOOD SPECIMENOrdering Facility: [facility] Address: [address] [place] [address] Performed By: #### 5 8410-2 ####[facility] LABORATORYCLIA [id number] [place] [address] [place] MCH (RBC) [Entitic mass] 30.8 pg Normal 26.0-34.0 [facility] Comment on above: Order Comment: Speci men Type: BLOOD SPECIMENOrdering Facility: [facility] Address: [address] [place] [address] Performed By: #### 5 8410-2 ####[facility] LABORATORYCLIA [id number] [place] [address] [place] MCHC (RBC) [Mass/Vol] 33.2 g/dL Normal 30.5-36.0 [facility] Comment on above: Order Comment: Speci men Type: BLOOD SPECIMENOrdering Facility: [facility] Address: [address] [place] [address] Performed By: #### 5 8410-2 ####[facility] LABORATORYCLIA [id number] [place] [address] [place] MCV (RBC) [Entitic vol] 92.9 fL Normal 80.0-100.0 M [facility] Comment on above: Order Comment: Speci men Type: BLOOD SPECIMENOrdering Facility: [facility] Address: [address] [place] [address] Performed By: #### 5 8410-2 ####[facility] LABORATORYCLIA [id number] [place] [address] [place] Nucleated RBC (Bld) [#/Vol] 10*3/uL Normal <0.01 [facility] Comment on above: Order Comment: Speci men Type: BLOOD SPECIMENOrdering Facility: [facility] Address: [address] [place] [address] Performed By: #### 5 8410-2 ####[facility] LABORATORYCLIA [id number] [place] [address] [place] Platelet mean volume (Bld) [Entitic vol] 9.4 fL Normal 9.0-12.7 [facility] Comment on above: Order Comment: Speci men Type: BLOOD SPECIMENOrdering Facility: [facility] Address: [address] [place] [address] Performed By: #### 5 8410-2 ####[facility] LABORATORYCLIA [id number] [place] [address] [place] Platelets (Bld) [#/Vol] 97 10*3/uL Low 150-400 M [facility] Comment on above: Order Comment: Speci men Type: BLOOD SPECIMENOrdering Facility: [facility] Address: [address] [place] [address] Result Comment: No c lot detected. Performed By: #### 5 8410-2 ####[facility] LABORATORYCLIA [id number] [address] OF [facility] RBC (Bld) [#/Vol] 4.25 10*6/uL Normal 3.90-5.20 [facility] Comment on above: Order Comment: Speci men Type: BLOOD SPECIMENOrdering Facility: [facility] Address: [address] [place] [address] Performed By: #### 5 8410-2 ####[facility] LABORATORYCLIA [id number] [address] OF [facility] WBC (Bld) [#/Vol] 5.97 10*3/uL Normal 3.70-11.00 [facility] Comment on above: Order Comment: Speci men Type: BLOOD SPECIMENOrdering Facility: [facility] Address: [address] [place] [address] Performed By: #### 5 8410-2 ####[facility] LABORATORYCLIA [id number] [address] OF [facility] Comprehensive metabolic 2000 panelon 12-31-2022 Albumin [Mass/Vol] 3.7 g/dL Normal 3.2-5.0 [facility] Comment on above: Order Comment: Speci men Type: BLOOD SPECIMENOrdering Facility: [facility] Address: [address] [place] [address] Performed By: #### 2 4323-8 ####[facility] LABORATORYCLIA [id number] [address] OF [facility] ALP [Catalytic activity/Vol] 81 U/L Normal 45-117 [facility] Comment on above: Order Comment: Speci men Type: BLOOD SPECIMENOrdering Facility: [facility] Address: [address] [place] [address] Performed By: #### 2 4323-8 ####[facility] LABORATORYCLIA [id number] [place] [id number] [place] ALT [Catalytic activity/Vol] 16 U/L Normal 13-61 [facility] Comment on above: Order Comment: Speci men Type: BLOOD SPECIMENOrdering Facility: [facility] Address: [address] [place] [address] Result Comment: Resu lts may be falsely depressed after the administration of Sulfasalazine and/or Sulfapyridine. Performed By: #### 2 4323-8 ####[facility] LABORATORYCLIA [id number] [place] [address] [place] Anion gap [Moles/Vol] 3 mmol/L Low 5-16 [facility] Comment on above: Order Comment: Speci men Type: BLOOD SPECIMENOrdering Facility: [facility] Address: [address] [place] [address] Performed By: #### 2 4323-8 ####[facility] LABORATORYCLIA [id number] [place] [address] [place] AST [Catalytic activity/Vol] 18 U/L Normal 8-34 [facility] Comment on above: Order Comment: Speci men Type: BLOOD SPECIMENOrdering Facility: [facility] Address: [address] [place] [address] Result Comment: Resu lts may be falsely depressed after the administration of Sulfasalazine and/or Sulfapyridine. Performed By: #### 2 4323-8 ####[facility] LABORATORYCLIA [id number] [place] [address] [place] Bilirubin [Mass/Vol] 0.8 mg/dL Normal 0.2-1.0 [facility] Comment on above: Order Comment: Speci men Type: BLOOD SPECIMENOrdering Facility: [facility] Address: [address] [place] [address] Performed By: #### 2 4323-8 ####[facility] LABORATORYCLIA [id number] [place] [id number] [place] Calcium [Mass/Vol] 9.8 mg/dL Normal 8.5-10.5 [facility] Comment on above: Order Comment: Speci men Type: BLOOD SPECIMENOrdering Facility: [facility] Address: [address] [place] [address] Performed By: #### 2 4323-8 ####[facility] LABORATORYCLIA [id number] [place] [id number] [place] Chloride [Moles/Vol] 102 mmol/L Normal 98-107 [facility] Comment on above: Order Comment: Speci men Type: BLOOD SPECIMENOrdering Facility: [facility] Address: [address] [place] [address] Performed By: #### 2 4323-8 ####[facility] LABORATORYCLIA [id number] [place] [address] [place] CO2 [Moles/Vol] 36 mmol/L High 21-32 [facility] Comment on above: Order Comment: Speci men Type: BLOOD SPECIMENOrdering Facility: [facility] Address: [address] [place] [address] Performed By: #### 2 4323-8 ####[facility] LABORATORYCLIA [id number] [place] [address] [place] Creatinine [Mass/Vol] 0.82 mg/dL Normal 0.51-0.95 [facility] Comment on above: Order Comment: Speci men Type: BLOOD SPECIMENOrdering Facility: [facility] Address: [address] [place] [address] Result Comment: Linn ents receiving either N-Acetylcysteine (NAC) or Metamizole prior to venipuncture, may have falsely depressed results. Performed By: #### 2 4323-8 ####[facility] LABORATORYCLIA [id number] [place] [address] [place] Creatinine and Glomerular filtration rate.predicted panel (S/P/Bld) 71 mL/min/1.73m??? Normal >=60 [facility] Comment on above: Order Comment: Speci men Type: BLOOD SPECIMENOrdering Facility: [facility] Address: [address] [place] [address] Result Comment: Esme mated Glomerular Filtration Rate [...] actual GFR. Performed By: #### 2 4323-8 ####[facility] LABORATORYCLIA [id number] [place] [address] [place] Glucose [Mass/Vol] 88 mg/dL Normal 70-100 [facility] Comment on above: Order Comment: Speci men Type: BLOOD SPECIMENOrdering Facility: [facility] Address: [address] [place] [address] Result Comment: The [place] Diabetes Association (ADA) provides guidance for cutoff [...] Standards of Medical Care in Diabetes 2016, [place] Diabetes Association. Diabetes Care. 2016.39(Suppl 1).Results may be falsely elevated after the administration of Sulfapyridine.Results may be falsely depressed after the administration of Sulfasalazine. Performed By: #### 2 4323-8 ####[facility] LABORATORYCLIA [id number] [place] [address] [place] Potassium [Moles/Vol] 3.9 mmol/L Normal 3.5-5.1 [facility] Comment on above: Order Comment: Speci men Type: BLOOD SPECIMENOrdering Facility: [facility] Address: [address] [place] [address] Performed By: #### 2 4323-8 ####[facility] LABORATORYCLIA [id number] [place] [address] [place] Protein [Mass/Vol] 6.7 g/dL Normal 6.0-8.5 [facility] Comment on above: Order Comment: Speci men Type: BLOOD SPECIMENOrdering Facility: [facility] Address: [address] [place] [address] Performed By: #### 2 4323-8 ####[facility] LABORATORYCLIA [id number] [place] [id number] [place] Sodium [Moles/Vol] 141 mmol/L Normal 136-145 [facility] Comment on above: Order Comment: Speci men Type: BLOOD SPECIMENOrdering Facility: [facility] Address: [address] [place] [address] Performed By: #### 2 4323-8 ####[facility] LABORATORYCLIA [id number] [place] [address] [place] Urea nitrogen [Mass/Vol] 19 mg/dL Normal 7-26 [facility] Comment on above: Order Comment: Speci men Type: BLOOD SPECIMENOrdering Facility: [facility] Address: [address] [place] [address] Performed By: #### 2 4323-8 ####[facility] LABORATORYCLIA [id number] [place] [address] [place] ECG COMPLETEon 12-31-2022 ECG COMPLETE Normal [facility] ED NOTEon 12-31-2022 ED NOTE HNO ID: [id number] Author: Danelle Goff RN Service: ? Author Type: Registered Nurse Type: ED Notes Filed: 12/31/2022 7:43 PM Note Text: Ambulated in hallway with pulse ox on room air. Pulse ox remains between 88-90%, heart rate 84. Normal [facility] ED NOTE HNO ID: [id number] Author: Venkat Pfeiffer RN Service: ? Author Type: Registered Nurse Type: ED Notes Filed: 12/31/2022 3:42 PM Note Text: Bed: 27-ED Expected date: Expected time: Means of arrival: Comments: triage Normal [facility] ED NOTE Normal [facility] ED PROV NOTEon 12-31-2022 ED PROV NOTE Normal [facility] Hemoccult Stl Qlon 3 Hemoglobin.gastrointesti nal Ql (Stl) Negative Normal [facility] Comment on above: Performed By: #### 2 335-8 ####[facility] LABORATORYCLIA [id number] [place] [id number] [place] PT panel Coag (PPP)on 2022 INR Coag (PPP) [Relative time] 1.1 {INR} Normal 0.9-1.3 [facility] Comment on above: Order Comment: Brady smith Type: BLOOD SPECIMENOrdering Facility: [facility] Address: [address] [place] [address] Result Comment: Serena min K Antagonist (VKA) Therapeutic Range: INR 2 to 3 (Target INR of 2.5)Note: For patients treated with VKA drugs, such as warfarin, the Citizen Of [place] [employer] 2012 Guideline recommends [...] al. Chest 2012, 141:7S-47SEfra RA, et al. [facility] 2017, 70: 252-289 Performed By: #### 3 4528-0, 86183-2 ####[facility] LABORATORYCLIA [id number] [place] [address] [place] PT Coag (PPP) [Time] 11.4 s Normal 9.7-13.0 [facility] Comment on above: Order Comment: Jayyi men Type: BLOOD SPECIMENOrdering Facility: [facility] Address: [address] [place] [address] Performed By: #### 3 4528-0, 16569-7 ####[facility] LABORATORYCLIA [id number] [address] TYPE + SCREENon 12-31-2022 ABO O Normal [facility] Comment on above: Order Comment: Speci men Type: BLOOD SPECIMENOrdering Facility: [facility] Address: [address] [place] [address] Performed By: #### L [id number], TSCR ####[facility] BLOOD BANKCLIA [id number] [address] OF [facility] HISTORICAL AB SCR STATUS Negative [facility] Comment on above: Order Comment: Speci men Type: BLOOD SPECIMENOrdering Facility: [facility] Address: [address] [place] [address] Performed By: #### L [id number], TSCR ####[facility] BLOOD BANKCLIA [id number] [place] [address] [place] Rh Nom (Bld) Negative [facility] Comment on above: Order Comment: Speci men Type: BLOOD SPECIMENOrdering Facility: [facility] Address: [address] [place] [address] Performed By: #### L [id number], TSCR ####[facility] BLOOD BANKCLIA [id number] [place] [address] [place] [facility] TYPE AND SCREEN EXPIRATION 01/03/2023 23:59 [facility] Comment on above: Order Comment: Speci men Type: BLOOD SPECIMENOrdering Facility: [facility] Address: [address] [place] [address] Performed By: #### L [id number], TSCR ####[facility] BLOOD BANKCLIA [id number] [place] [address] [place] Urinalysis complete panel (U )on 12-31-2022 Bacteria LM.HPF (Urine sed) [#/Area] Rare Abnormal None Seen [facility] Comment on above: Order Comment: Speci men Type: URINE SPECIMENOrdering Facility: [facility] Address: [address] [place] [address] Performed By: #### 2 4356-8 ####[facility] LABORATORYCLIA [id number] [place] [address] [place] Bilirubin Ql (U) Negative Normal Negative [facility] Comment on above: Order Comment: Speci men Type: URINE SPECIMENOrdering Facility: [facility] Address: [address] [place] [address] Performed By: #### 2 4356-8 ####[facility] LABORATORYCLIA [id number] [address] Clarity (Unsp spec) Clear Normal Clear [facility] Comment on above: Order Comment: Speci men Type: URINE SPECIMENOrdering Facility: [facility] Address: [address] [place] [address] Performed By: #### 2 4356-8 ####[facility] LABORATORYCLIA [id number] [address] [place] Color (U) Straw Normal Yellow [facility] Comment on above: Order Comment: Speci men Type: URINE SPECIMENOrdering Facility: [facility] Address: [address] [place] [address] Performed By: #### 2 4356-8 ####[facility] LABORATORYCLIA [id number] [address] [place] Epithelial cells LM.HPF (Urine sed) [#/Area] Few Normal [facility] Comment on above: Order Comment: Speci men Type: URINE SPECIMENOrdering Facility: [facility] Address: [address] [place] [address] Performed By: #### 2 4356-8 ####[facility] LABORATORYCLIA [id number] [address] [place] Glucose Test strip (U) [Mass/Vol] Negative Normal Negative [facility] Comment on above: Order Comment: Speci men Type: URINE SPECIMENOrdering Facility: [facility] Address: [address] [place] [address] Performed By: #### 2 4356-8 ####[facility] LABORATORYCLIA [id number] [address] [place] Hemoglobin Ql (U) Negative Normal Negative [facility] Comment on above: Order Comment: Speci men Type: URINE SPECIMENOrdering Facility: [facility] Address: [address] [place] [address] Performed By: #### 2 4356-8 ####[facility] LABORATORYCLIA [id number] [place] [address] [place] Ketones Ql (U) Negative Normal Negative [facility] Comment on above: Order Comment: Speci men Type: URINE SPECIMENOrdering Facility: [facility] Address: [address] [place] [address] Performed By: #### 2 4356-8 ####[facility] LABORATORYCLIA [id number] [address] [place] Leukocyte esterase Test strip Ql (U) Negative Normal Negative [facility] Comment on above: Order Comment: Speci men Type: URINE SPECIMENOrdering Facility: [facility] Address: [address] [place] [address] Performed By: #### 2 4356-8 ####[facility] LABORATORYCLIA [id number] [address] [place] Nitrite Ql (U) Negative Normal Negative [facility] Comment on above: Order Comment: Speci men Type: URINE SPECIMENOrdering Facility: [facility] Address: [address] [place] [address] Performed By: #### 2 4356-8 ####[facility] LABORATORYCLIA [id number] [address] [place] pH (U) 8.0 [pH] Normal 5.0-8.0 [facility] Comment on above: Order Comment: Speci men Type: URINE SPECIMENOrdering Facility: [facility] Address: [address] [place] [address] Performed By: #### 2 4356-8 ####[facility] LABORATORYCLIA [id number] [place] [address] [place] Protein (U) [Mass/Vol] Negative Normal Negative [facility] Comment on above: Order Comment: Speci men Type: URINE SPECIMENOrdering Facility: [facility] Address: [address] [place] [address] Performed By: #### 2 4356-8 ####[facility] LABORATORYCLIA [id number] [place] [address] [place] RBC LM.HPF (Urine sed) [#/Area] 0-3 /HPF Normal 0-3 /HPF [facility] Comment on above: Order Comment: Speci men Type: URINE SPECIMENOrdering Facility: [facility] Address: [address] [place] [address] Performed By: #### 2 4356-8 ####[facility] LABORATORYCLIA [id number] [address] [place] Specific gravity (U) [Rel density] 1.012 Normal 1.005-1.030 [facility] Comment on above: Order Comment: Speci men Type: URINE SPECIMENOrdering Facility: [facility] Address: [address] [place] [address] Performed By: #### 2 4356-8 ####[facility] LABORATORYCLIA [id number] [address] [place] Urobilinogen Ql (U) Negative Normal Negative [facility] Comment on above: Order Comment: Speci men Type: URINE SPECIMENOrdering Facility: [facility] Address: [address] [place] [address] Performed By: #### 2 4356-8 ####[facility] LABORATORYCLIA [id number] [address] [place] WBC LM.HPF (Urine sed) [#/Area] 0-5 /HPF Normal 0-5 /HPF [facility] Comment on above: Order Comment: Speci men Type: URINE SPECIMENOrdering Facility: [facility] Address: [address] [place] [address] Performed By: #### 2 4356-8 ####[facility] LABORATORYCLIA [id number] [place] [id number] [facility] [place] XR CHEST 1V FRONTAL PORTon 1 XR CHEST 1V FRONTAL PORT Normal [facility] aPTT PPPon 12-31-2022 aPTT Coag (PPP) [Time] 28.6 s Normal 23.0-32.4 [facility] Comment on above: Order Comment: Speci men Type: BLOOD SPECIMENOrdering Facility: [facility] Address: [address] [place] [address] Performed By: #### 3 4528-0, 72094-7 ####[facility] LABORATORYCLIA [id number] [address] LABORATORYOrdered By: SYSTEM SYSTEM on 02-16-2022 [...] serogroups and species may also cause disease. [facility] Work Phone: Streptococcus Pneumoniae Urine Antig Streptococcus pneumoniae antigen Positive for pneumococcal pneumonia. [facility] Work Phone: Comment on above: [...] Comment on above: Result Comment: Richard bob [address] [place], [place] [address] Perf Loc - POCT Tested at AM Invalid Interpretation Code AM Telcor Subsection Comment on above: Result Comment: Richard paulino [address] [place], [place] [address] Perf Loc - POCT Tested at AM Invalid Interpretation Code AM Telcor Subsection Comment on above: Result Comment: Richard bob [address]ell [address] [place] [address] LABORATORYOrdered By: Toi Blackburn on 02-12-2022 Performing [...] RNA LYDIA+probe Ql (Unsp spec) Done Charted [facility] DISCH.SUMon 08-29-2020 DISCH.[facility] [address] [place] [id number] Unit Number: [id number] Discharge Summary Patient Status: ADM Liang Attending [...] or rash noticed. Labs/Imaging Lab 72hr (CBC/BMP [facility]) 08/28/204: SARS-CoV-2 (PCR) NEGATIVE 08/28/201941: Troponin I [...] (Myrbetriq) 25 MG TAB.ER.24H 25 MILLIGRAM ORAL Henderson-3 Fatty Acids/Fish Oil* (Fish Oil 1,000 MG Softgel*) 1 EACH CAPSULE 1 CAPSULE ORAL EVERY DAY Flaxseed Oil (Flax Oil) 1,000 MG CAPSULE 1,000 MILLIGRAM ORAL Cholecalciferol (Vitamin D3)* (Vitamin D3 1000 Unit tab*) 25 MCG TABLET 1,000 UNIT ORAL EVERY DAY Henderson-3 Fatty Acids/Fish Oil* (Fish Oil 1,000 MG [...] MG T (more content not included)... Normal [facility] Radhika Martinez 08-29-2020 EMERGENCY PHYSICIAN REPORT This is a preliminary report only, as the practitioner review and authentication has not occurred. 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 She is noted that there is been no high fevers chills or sweats and she had her Covid shots months ago. [facility] PATIENT NAME: KRISH PERALTA [facility] Segal MEDICAL REC #: [id number] [place] [address] EMERGENCY DEPARTMENT REPORT EMERGENCY DEPARTMENT PHYSICIAN She [...] Lids Normal; . Oropharynx / Throat: Normal [facility] REC #: [id number] [place] [address] EMERGENCY DEPARTMENT REPORT EMERGENCY DEPARTMENT PHYSICIAN Pharynx. [...] 65 bpm. Rate NormalRhythm Sinus RhythmAxis Left Sterling DeviationIntervals NormalQRS NormalST/T Normal Interpretation: Sinus rhythm Comparison: No old Cardiogram available for comparison Imaging Study Obtained: CHES (more content not included)... Normal [facility] HP.IMS.ADMon 08-29-2020 Admission-H&P Normal [facility] HP.IMS.ADM [facility] Patient Name: KRISH PERALTA [address] Date of : [address] [place] [address] Unit Number: [id number] Admission-HandP Patient Status: ADM Liang Attending Doctor: Yessy Alatorre DO Service Date: 08/28/20 9740 History of Present Illness Chief Complaint/Present Illness: [...] has end (more content not included)... Normal [facility] [id number] 08-29-2020 SARS-CoV-2 (COVID-19) RNA LYDIA+probe Ql (Unsp spec) Negative Invalid Interpretation Code Negative [facility] Comment on above: Order Comment: Chandni Paul Result Comment: [facility] CALLED TO Lidna JIMENEZ AT 2341 08/28/20 BY EMILY REDDING Negative results do not preclude SARS-CoV-2 infection and should not be used as the sole basis for treatment or other patient management decisions. Negative results must be combined with clinical observation, patient history, and epidemiological information. This test was performed by PCR. Performed By: #### L 770.78302 #### [facility] LABORATORY [facility] [place] [address] BMPon 08-28-2020 Anion gap [Moles/Vol] 4 mmol/L Low 5-16 [facility] Comment on above: Order Comment: Campu s: M Performed By: #### L 500.72529, L500.92998 #### [facility] LABORATORY [address] [place] [address] Calcium [Mass/Vol] 10.4 mg/dL Normal 8.5-10.5 [facility] Comment on above: Order Comment: Campu s: M Result Comment: NOTE NEW NORMAL RANGE DUE TO REAGENT CHANGE Performed By: #### L 500.82774, L500.45031 #### [facility] LABORATORY [address] [place] [address] Chloride [Moles/Vol] 103 mmol/L Normal 98-107 [facility] Comment on above: Order Comment: Campu s: M Performed By: #### L 500.57656, L500.70096 #### [facility] LABORATORY [address] [place] [address] CO2 [Moles/Vol] 32.0 mmol/L Normal 21-32 [facility] Comment on above: Order Comment: Campu s: M Performed By: #### L 500.00085, L500.37384 #### [facility] LABORATORY [address] [place], [place] [address] Creatinine [Mass/Vol] 0.75 mg/dL Normal 0.510-0.950 [facility] Comment on above: Order Comment: Campu s: M Result Comment: Linn ents receiving either N-Acetylcysteine (NAC) or Metamizole prior to venipuncture, may have falsely depressed results. Performed By: #### L 500.54308, L500.30032 #### [facility] LABORATORY [address] [place] [address] Glucose [Mass/Vol] 93 mg/dL Normal 70-100 [facility] Comment on above: Order Comment: Campu s: M Result Comment: 70-1 00- Normal Fasting; 100-125 Impaired Fasting; greater than 126 on more than one result- Diabetes. ADA guidelines. Results may be falsely elevated after the administration of Sulfapyridine. Results may be falsely depressed after the administration of Sulfasalazine. Performed By: #### L 500.42331, L500.86945 #### [facility] LABORATORY [address] [place] [address] Potassium [Moles/Vol] 3.6 mmol/L Normal 3.5-5.1 [facility] Comment on above: Order Comment: Campu s: M Performed By: #### L 500.39241, L500.68997 #### [facility] LABORATORY [address] [place] [address] Sodium [Moles/Vol] 139 mmol/L Normal 136-145 [facility] Comment on above: Order Comment: Campu s: M Performed By: #### L 500.79364, L500.52296 #### [facility] LABORATORY [address] [place] [address] Urea nitrogen [Mass/Vol] 17 mg/dL Normal 7-26 [facility] Comment on above: Order Comment: Campu s: M Performed By: #### L 500.05362, L500.90544 #### [facility] LABORATORY [address] [place], [place] [address] Urea nitrogen/Creatinine [Mass ratio] 23 mg/mg Normal 15-24 [facility] Comment on above: Order Comment: Campu s: M Performed By: #### L 500.36716, L500.11756 #### [facility] LABORATORY [address] [place], [place] [address] CBC W/DIFFon 08-28-2020 BASO ABS 0.00 K/CU MM Normal 0-0.2 [facility] Comment on above: Order Comment: Campu s: M Performed By: #### L 200.80040 #### [facility] LABORATORY [address] [place] [address] Basophils/100 WBC (Bld) 0.1 % Normal 0-2 M [facility] Comment on above: Order Comment: Campu s: M Performed By: #### L 200.72251 #### [facility] LABORATORY [address] [place] [address] EOS ABS 0.20 K/CU MM Normal 0-0.5 [facility] Comment on above: Order Comment: Campu s: M Performed By: #### L 200.20943 #### [facility] LABORATORY [address] [place] [address] Eosinophils/100 WBC (Bld) 3.0 % Normal 0-5 [facility] Comment on above: Order Comment: Campu s: M Performed By: #### L 200.36506 #### [facility] LABORATORY [address] [place] [address] Erythrocyte distribution width (RBC) [Ratio] 14.0 % Normal 11-14.5 [facility] Comment on above: Order Comment: Campu s: M Performed By: #### L 200.25354 #### [facility] LABORATORY [address] [place] [address] Hematocrit (Bld) [Volume fraction] 42.2 % Normal 35.0-47.0 [facility] Comment on above: Order Comment: Campu s: M Performed By: #### L 200.35851 #### [facility] LABORATORY [address] [place] [address] Hemoglobin (Bld) [Mass/Vol] 14.3 g/dL Normal 11.5-15.5 [facility] Comment on above: Order Comment: Campu s: M Performed By: #### L 200.04218 #### [facility] LABORATORY [address] [place] [address] IMMATR GRAN ABS 0.00 K/CU MM Normal Less than 2 [facility] Comment on above: Order Comment: Campu s: M Performed By: #### L 200.33256 #### [facility] LABORATORY [address] [place] [address] IMMATURE GRAN % 0.4 % Normal Less than 2 [facility] Comment on above: Order Comment: Campu s: M Performed By: #### L 200.68885 #### [facility] LABORATORY [address] [place] [address] LYMPH ABS 2.20 K/CU MM Normal 0.9-4.4 [facility] Comment on above: Order Comment: Campu s: M Performed By: #### L 200.56885 #### [facility] LABORATORY [address] [place] [address] Lymphocytes/100 WBC (Bld) 32.1 % Normal 20-40 [facility] Comment on above: Order Comment: Campu s: M Performed By: #### L 200.35607 #### [facility] LABORATORY [address] [place] [address] MCHC (RBC) [Mass/Vol] 33.9 g/dL Normal 32.0-36.0 [facility] Comment on above: Order Comment: Campu s: M Performed By: #### L 200.53612 #### [facility] LABORATORY [address] [place] [address] MCV (RBC) [Entitic vol] 90.2 fL Normal 80.0-99.0 [facility] Comment on above: Order Comment: Campu s: M Performed By: #### L 200.05256 #### [facility] LABORATORY [address] [place] [address] MONO ABS 0.60 K/CU MM Normal 0.1-1.1 [facility] Comment on above: Order Comment: Campu s: M Performed By: #### L 200.66370 #### [facility] LABORATORY [address] [place] [address] Monocytes/100 WBC (Bld) 9.2 % Normal 2-10 M [facility] Comment on above: Order Comment: Campu s: M Performed By: #### L 200.03737 #### [facility] LABORATORY [address] [place] [address] NEUTROPHIL ABS 3.80 K/CU MM Normal 2.0-8.3 [facility] Comment on above: Order Comment: Campu s: M Performed By: #### L 200.58743 #### [facility] LABORATORY [address] [place] [address] Neutrophils/100 WBC (Bld) 55.2 % Normal 45-75 [facility] Comment on above: Order Comment: Campu s: M Performed By: #### L 200.72631 #### [facility]OR[facility]ORY [address] [place] [address] Nucleated RBC/100 WBC (Bld) [Ratio] 0.0 % Normal Less than 1 [facility] Comment on above: Order Comment: Campu s: M Performed By: #### L .38975 #### [facility]OR[facility]ORY [address] [place] [address] Platelet mean volume (Bld) [Entitic vol] 9.8 fL Normal 9.4-12.4 [facility] Comment on above: Order Comment: Campu s: M Performed By: #### L 200.06705 #### [facility] LABORATORY [address] [place] [address] PLT 112 K/CU MM Low 150-450 [facility] Comment on above: Order Comment: Campu s: M Result Comment: Conf irmed by slide estimate. Performed By: #### L 200.86137 #### [facility] [address] [place] [address] PLT EST SLT DECREASED Normal [facility] Comment on above: Order Comment: Campu s: M Performed By: #### L 200.01593 #### [facility] [address] [place] [address] RBC 4.68 M/CU MM Normal 3.90-5.30 [facility] Comment on above: Order Comment: Campu s: M Performed By: #### L 200.71520 #### [facility] LABOR[facility] [address] [place] [address] WBC 6.9 K/CUMM Normal 4.5-11.0 [facility] Comment on above: Order Comment: Campu s: M Performed By: #### L 200.05998 #### [facility] [address] [place] [address] CHEST PA/AP AND LATERALon CHEST PA/AP AND LATERAL EXAMINATION: [facility] RADIOGRAPH (2 VIEW FRONTAL & LATERAL) [...] MD Signed By: LEONOR MCKEON MD Normal [facility] EKGon 08-28-2020 Electrocardiogram Procedure Date and [...] No previous ECGs available Confirmed by Clare [facility]OSPITALRadha Gatica ([id number]) on 08/28/2020 10:44:22 PM Referred By: Emergency Rowan Adrian Confirmed By:Radha COBIAN M.D.[facility] [place] DDandT: 08/28/201931 TDandT: [facility] PATIENT NAME: KRISH PERLATA [facility] MEDICAL REC #: [id number] [place] [address] ADMIT DATE: DISCHARGE DATE: ATTENDING PHY: Rowan Adrian,Emergency Physi ELECTROCARDIOGRAM REPORT CLB cc: [facility] PATIENT NAME: KRISH PERALTA [facility] MEDICAL REC #: [id number] [place] [address] ADMIT DATE: DISCHARGE DATE: ATTENDING PHY: Rowan Adrian,Emergency Physi ELECTROCARDIOGRAM REPORT Normal [facility] GFR ESTon 08-28-2020 IF AMER Greater than 60 Normal [facility] Comment on above: Order Comment: Pelonu s: M Performed By: #### [id number], [id number] #### [facility] [address] [place] [address] IF non-AFR AMER Greater than 60 Normal [facility] Comment on above: Order Comment: Pelonu s: M Performed By: #### [id number], [id number] #### [facility] [address] [place] [address] TROPONIN Ion 08-28-2020 TROPONIN I 3.1 pg/mL Normal 0-34 [facility] Comment on above: Order Comment: Chandni s: M Result Comment: NOTE NEW NORMAL RANGE DUE TO REAGENT CHANGE This assay uses different antibodies than our current assay, and assays, even by the same wrapper counter may recognize different regions of the antibody and cannot be used interchangeably. Expect results of this assay to run higher than the previous assay. Performed By: #### L [id number] #### [facility] [address] [place] [address] Vital Signs Date Time Vital Sign Value Performing Clinician Facility 09-01-2024 09:19-0400 Body height 152.4 cm Paulette Ram AFFILIATE MARKETING MANAGER Work Phone: [facility] 09-01-2024 09:19-0400 Body temperature 97.7 [degF] Paulette Ram AFFILIATE MARKETING MANAGER Work Phone: [facility] 09-01-2024 09:19-0400 Diastolic blood pressure 62 mm[Hg] Paulette Ram AFFILIATE MARKETING MANAGER Work Phone: [facility] 09-01-2024 09:19-0400 Heart rate 67 /min Paulette Ram AFFILIATE MARKETING MANAGER Work Phone: [facility] 09-01-2024 09:19-0400 SaO2% (BldA) [Mass fraction] 90 % Paulette Ram AFFILIATE MARKETING MANAGER Work Phone: [facility] 09-01-2024 09:19-0400 Systolic blood pressure 98 mm[Hg] Paulette Ram AFFILIATE MARKETING MANAGER Work Phone: [facility] 08-11-2024 12:27-0400 Body temperature 97.81 [degF] Mejgon Ann DO Work Phone: [facility] 08-11-2024 12:27-0400 Diastolic blood pressure 73 mm[Hg] Mejgon Ann DO Work Phone: [facility] 08-11-2024 12:27-0400 Heart rate 85 /min Mejgon Ann DO Work Phone: [facility] 08-11-2024 12:27-0400 Respiratory rate 16 /min Mejgon Ann DO Work Phone: [facility] 08-11-2024 12:27-0400 SaO2% (BldA) [Mass fraction] 92 % Mejgon Ann DO Work Phone: [facility] 08-11-2024 12:27-0400 Systolic blood pressure 117 mm[Hg] Mejgon Ann DO Work Phone: [facility] 08-06-2024 15:21-0400 Body height 152.4 cm Stacia Juarez DO Work Phone: [facility] 08-06-2024 15:21-0400 Body mass index (BMI) [Ratio] 42.97 kg/m2 Stacia Juarez DO Work Phone: [facility] 08-06-2024 15:21-0400 Body weight 99.79 kg Stacia Juarez DO Work Phone: [facility] 11-11-2023 11:15-0400 Body mass index (BMI) [Ratio] 38.47 kg/m2 Kalli De Anda APRN.VENTILATOR SPECIALIST Work Phone: [facility] 11-11-2023 11:15-0400 Body temperature 97.81 [degF] Kalli De Anda APRN.VENTILATOR SPECIALIST Work Phone: [facility] 11-11-2023 11:15-0400 Body weight 89.36 kg Kalli De Anda APRN.VENTILATOR SPECIALIST Work Phone: [facility] Comment on above: 11/03/2023 11-11-2023 11:15-0400 Diastolic blood pressure 72 mm[Hg] Kalli De Anda APRN.VENTILATOR SPECIALIST Work Phone: [facility] 11-11-2023 11:15-0400 Heart rate 68 /min Kalli De Anda APRN.VENTILATOR SPECIALIST Work Phone: [facility] 11-11-2023 11:15-0400 Respiratory rate 18 /min Kalli De Anda APRN.VENTILATOR SPECIALIST Work Phone: [facility] 11-11-2023 11:15-0400 SaO2% (BldA) [Mass fraction] 96 % Kalli De Anda APRN.VENTILATOR SPECIALIST Work Phone: [facility] 11-11-2023 11:15-0400 Systolic blood pressure 126 mm[Hg] Kalli De Anda APRN.VENTILATOR SPECIALIST Work Phone: [facility] 11-05-2023 14:23-0400 Body temperature 97.59 [degF] Kalli De Anda APRN.VENTILATOR SPECIALIST Work Phone: [facility] 11-05-2023 14:23-0400 Diastolic blood pressure 67 mm[Hg] Kalli De Anda APRN.VENTILATOR SPECIALIST Work Phone: [facility] 11-05-2023 14:23-0400 Heart rate 79 /min Kalli De Anda APRN.VENTILATOR SPECIALIST Work Phone: [facility] 11-05-2023 14:23-0400 Respiratory rate 18 /min Kalli De Anda APRN.VENTILATOR SPECIALIST Work Phone: [facility] 11-05-2023 14:23-0400 SaO2% (BldA) [Mass fraction] 95 % Kalli De Anda APRN.VENTILATOR SPECIALIST Work Phone: [facility] 11-05-2023 14:23-0400 Systolic blood pressure 114 mm[Hg] Kalli De Anda APRN.VENTILATOR SPECIALIST Work Phone: [facility] 11-03-2023 16:14-0400 Body mass index (BMI) [Ratio] 38.47 kg/m2 Kalli De Anda APRN.VENTILATOR SPECIALIST Work Phone: [facility] 11-03-2023 16:14-0400 Body temperature 96.21 [degF] Kalli De Anda APRN.VENTILATOR SPECIALIST Work Phone: [facility] 11-03-2023 16:14-0400 Body weight 89.36 kg Kalli De Anda APRN.VENTILATOR SPECIALIST Work Phone: [facility] 11-03-2023 16:14-0400 Diastolic blood pressure 60 mm[Hg] Kalli De Anda APRN.VENTILATOR SPECIALIST Work Phone: [facility] 11-03-2023 16:14-0400 Heart rate 73 /min Kalli De Anda APRN.VENTILATOR SPECIALIST Work Phone: [facility] 11-03-2023 16:14-0400 Respiratory rate 18 /min Kalli De Anda APRN.VENTILATOR SPECIALIST Work Phone: [facility] 11-03-2023 16:14-0400 SaO2% (BldA) [Mass fraction] 93 % Kalli De Anda APRN.VENTILATOR SPECIALIST Work Phone: [facility] 11-03-2023 16:14-0400 Systolic blood pressure 110 mm[Hg] Kalli De Anda APRN.VENTILATOR SPECIALIST Work Phone: [facility] 10-29-2023 15:29-0400 Body temperature 97.39 [degF] Kalli De Anda APRN.VENTILATOR SPECIALIST Work Phone: [facility] 10-29-2023 15:29-0400 Diastolic blood pressure 64 mm[Hg] Kalli De Anda APRN.VENTILATOR SPECIALIST Work Phone: [facility] 10-29-2023 15:29-0400 Heart rate 75 /min Kalli De Anda APRN.VENTILATOR SPECIALIST Work Phone: [facility] 10-29-2023 15:29-0400 Respiratory rate 20 /min Kalli De Anda APRN.VENTILATOR SPECIALIST Work Phone: [facility] 10-29-2023 15:29-0400 SaO2% (BldA) [Mass fraction] 95 % Kalli De Anda APRN.VENTILATOR SPECIALIST Work Phone: [facility] 10-29-2023 15:29-0400 Systolic blood pressure 111 mm[Hg] Kalli De Anda APRN.VENTILATOR SPECIALIST Work Phone: [facility] 10-27-2023 12:09-0400 Body mass index (BMI) [Ratio] 37.5 kg/m2 Kalli De Anda APRN.VENTILATOR SPECIALIST Work Phone: [facility] 10-27-2023 12:09-0400 Body temperature 97.3 [degF] Kalli De Anda APRN.VENTILATOR SPECIALIST Work Phone: [facility] 10-27-2023 12:09-0400 Body weight 87.09 kg Kalli De Anda APRN.VENTILATOR SPECIALIST Work Phone: [facility] 10-27-2023 12:09-0400 Diastolic blood pressure 69 mm[Hg] Kalli De Anda TAPEMAN.VENTILATOR SPECIALIST Work Phone: [facility] 10-27-2023 12:09-0400 Heart rate 79 /min Kalli De Anda APRN.VENTILATOR SPECIALIST Work Phone: [facility] 10-27-2023 12:09-0400 Respiratory rate 16 /min Kalli De Anda TAPEMAN.VENTILATOR SPECIALIST Work Phone: [facility] 10-27-2023 12:09-0400 SaO2% (BldA) [Mass fraction] 95 % Kalli De Anda TAPEMAN.VENTILATOR SPECIALIST Work Phone: [facility] 10-27-2023 12:09-0400 Systolic blood pressure 126 mm[Hg] Kalli De Anda TAPEMAN.VENTILATOR SPECIALIST Work Phone: [facility] 10-16-2023 14:10-0400 Body temperature 97.59 [degF] Kalli De Anda APRN.VENTILATOR SPECIALIST Work Phone: [facility] 10-16-2023 14:10-0400 Diastolic blood pressure 59 mm[Hg] Kalli De Anda TAPEMAN.VENTILATOR SPECIALIST Work Phone: [facility] 10-16-2023 14:10-0400 Heart rate 73 /min Kalli De Anda APRN.VENTILATOR SPECIALIST Work Phone: [facility] 10-16-2023 14:10-0400 Respiratory rate 18 /min Kalli De Anda APRN.VENTILATOR SPECIALIST Work Phone: [facility] 10-16-2023 14:10-0400 SaO2% (BldA) [Mass fraction] 92 % Kalli De Anda APRN.VENTILATOR SPECIALIST Work Phone: [facility] 10-16-2023 14:10-0400 Systolic blood pressure 123 mm[Hg] Kalli De Anda TAPEMAN.VENTILATOR SPECIALIST Work Phone: [facility] 10-14-2023 11:15-0400 Body mass index (BMI) [Ratio] 38.28 kg/m2 Kalli De Anda TAPEMAN.VENTILATOR SPECIALIST Work Phone: [facility] 10-14-2023 11:15-0400 Body temperature 97.59 [degF] Kalli De Anda TAPEMAN.VENTILATOR SPECIALIST Work Phone: [facility] 10-14-2023 11:15-0400 Body weight 88.91 kg Kalli De Anda APRN.VENTILATOR SPECIALIST Work Phone: [facility] 10-14-2023 11:15-0400 Diastolic blood pressure 70 mm[Hg] Kalli De Anda TAPEMAN.VENTILATOR SPECIALIST Work Phone: [facility] 10-14-2023 11:15-0400 Heart rate 72 /min Kalli De Anda APRN.VENTILATOR SPECIALIST Work Phone: [facility] 10-14-2023 11:15-0400 Respiratory rate 18 /min Kalli De Anda APRN.VENTILATOR SPECIALIST Work Phone: [facility] 10-14-2023 11:15-0400 SaO2% (BldA) [Mass fraction] 95 % Kalli De Anda APRN.VENTILATOR SPECIALIST Work Phone: [facility] 10-14-2023 11:15-0400 Systolic blood pressure 120 mm[Hg] Kalli Helbert TAPEMAN.VENTILATOR SPECIALIST Work Phone: [facility] 10-09-2023 15:00-0400 Body temperature 97.5 [degF] Kalli De Anda TAPEMAN.VENTILATOR SPECIALIST Work Phone: [facility] 10-09-2023 15:00-0400 Diastolic blood pressure 68 mm[Hg] Kalli Hellandry TAPEMAN.VENTILATOR SPECIALIST Work Phone: [facility] 10-09-2023 15:00-0400 Heart rate 84 /min Kalli De Anda APRN.VENTILATOR SPECIALIST Work Phone: [facility] 10-09-2023 15:00-0400 Respiratory rate 18 /min Kalli De Anda APRN.VENTILATOR SPECIALIST Work Phone: [facility] 10-09-2023 15:00-0400 SaO2% (BldA) [Mass fraction] 93 % Kalli Helbert TAPEMAN.VENTILATOR SPECIALIST Work Phone: [facility] 10-09-2023 15:00-0400 Systolic blood pressure 105 mm[Hg] Kalli Helbert TAPEMAN.VENTILATOR SPECIALIST Work Phone: [facility] 10-07-2023 11:48-0400 Body temperature 97.81 [degF] Kalli Helbert TAPEMAN.VENTILATOR SPECIALIST Work Phone: [facility] 10-07-2023 11:48-0400 Diastolic blood pressure 79 mm[Hg] Kalli Helbert TAPEMAN.VENTILATOR SPECIALIST Work Phone: [facility] 10-07-2023 11:48-0400 Heart rate 90 /min Kalli Helbert TAPEMAN.VENTILATOR SPECIALIST Work Phone: [facility] 10-07-2023 11:48-0400 Respiratory rate 18 /min Kalli Helbert TAPEMAN.VENTILATOR SPECIALIST Work Phone: [facility] 10-07-2023 11:48-0400 SaO2% (BldA) [Mass fraction] 93 % Kalli Helbert TAPEMAN.VENTILATOR SPECIALIST Work Phone: [facility] 10-07-2023 11:48-0400 Systolic blood pressure 133 mm[Hg] Kalli Helbert TAPEMAN.VENTILATOR SPECIALIST Work Phone: [facility] 10-02-2023 11:02-0400 Body temperature 97.59 [degF] Kalli Helbert TAPEMAN.VENTILATOR SPECIALIST Work Phone: [facility] 10-02-2023 11:02-0400 Diastolic blood pressure 97 mm[Hg] Kalli Helbert TAPEMAN.VENTILATOR SPECIALIST Work Phone: [facility] 10-02-2023 11:02-0400 Heart rate 68 /min Kalli Helbert TAPEMAN.VENTILATOR SPECIALIST Work Phone: [facility] 10-02-2023 11:02-0400 Respiratory rate 18 /min Kalli Helbert TAPEMAN.VENTILATOR SPECIALIST Work Phone: [facility] 10-02-2023 11:02-0400 SaO2% (BldA) [Mass fraction] 94 % Kalli Helbert TAPEMAN.VENTILATOR SPECIALIST Work Phone: [facility] 10-02-2023 11:02-0400 Systolic blood pressure 118 mm[Hg] Kalli Helbert TAPEMAN.VENTILATOR SPECIALIST Work Phone: [facility] 09-30-2023 11:25-0400 Body temperature 97.5 [degF] Kalli Helbert TAPEMAN.VENTILATOR SPECIALIST Work Phone: [facility] 09-30-2023 11:25-0400 Diastolic blood pressure 62 mm[Hg] Kalli Helbert TAPEMAN.VENTILATOR SPECIALIST Work Phone: [facility] 09-30-2023 11:25-0400 Heart rate 64 /min Kalli Helbert TAPEMAN.VENTILATOR SPECIALIST Work Phone: [facility] 09-30-2023 11:25-0400 Respiratory rate 18 /min Kalli Helbert TAPEMAN.VENTILATOR SPECIALIST Work Phone: [facility] 09-30-2023 11:25-0400 SaO2% (BldA) [Mass fraction] 95 % Kalli Helbert TAPEMAN.VENTILATOR SPECIALIST Work Phone: [facility] 09-30-2023 11:25-0400 Systolic blood pressure 123 mm[Hg] Kalli Helbert TAPEMAN.VENTILATOR SPECIALIST Work Phone: [facility] 09-26-2023 23:10-0400 Body temperature 97.81 [degF] Kalli Helbert TAPEMAN.VENTILATOR SPECIALIST Work Phone: [facility] 09-26-2023 23:10-0400 Diastolic blood pressure 52 mm[Hg] Kalli Helbert TAPEMAN.VENTILATOR SPECIALIST Work Phone: [facility] 09-26-2023 23:10-0400 Heart rate 72 /min Kalli Helbert TAPEMAN.VENTILATOR SPECIALIST Work Phone: [facility] 09-26-2023 23:10-0400 Respiratory rate 18 /min Kalli Helbert TAPEMAN.VENTILATOR SPECIALIST Work Phone: [facility] 09-26-2023 23:10-0400 SaO2% (BldA) [Mass fraction] 92 % Kalli De Anda APRN.VENTILATOR SPECIALIST Work Phone: [facility] 09-26-2023 23:10-0400 Systolic blood pressure 108 mm[Hg] Kalli De Anda TAPEMAN.VENTILATOR SPECIALIST Work Phone: [facility] 09-23-2023 09:52-0400 Body temperature 97.7 [degF] Kalli De Anda TAPEMAN.VENTILATOR SPECIALIST Work Phone: [facility] 09-23-2023 09:52-0400 Diastolic blood pressure 62 mm[Hg] Kalli De Anda TAPEMAN.VENTILATOR SPECIALIST Work Phone: [facility] 09-23-2023 09:52-0400 Heart rate 86 /min Kalli De Anda APRN.VENTILATOR SPECIALIST Work Phone: [facility] 09-23-2023 09:52-0400 Respiratory rate 18 /min Kalli De Anda TAPEMAN.VENTILATOR SPECIALIST Work Phone: [facility] 09-23-2023 09:52-0400 SaO2% (BldA) [Mass fraction] 92 % Kalli De Anda TAPEMAN.VENTILATOR SPECIALIST Work Phone: [facility] 09-23-2023 09:52-0400 Systolic blood pressure 121 mm[Hg] Kalli De Anda TAPEMAN.VENTILATOR SPECIALIST Work Phone: [facility] 06-20-2023 14:45-0400 Body temperature 97.7 [degF] WAQAS GONZALEZ MD [facility] 06-20-2023 14:45-0400 Diastolic Blood Pressure Non-Invasive 64 mm[Hg] WAQAS GONZALEZ MD [facility] 06-20-2023 14:45-0400 Heart rate 86 /min WAQAS GONZALEZ MD [facility] 06-20-2023 14:45-0400 Reason For Taking VItal Signs WAQAS GONZALEZ MD [address] [place] [address] 06-20-2023 14:45-0400 Respiratory rate 18 /min WAQAS GONZALEZ MD [address] [place] [address] 06-20-2023 14:45-0400 Systolic Blood Pressure Non-Invasive 119 mm[Hg] WAQAS GONZALEZ MD [address] [place] [address] 06-20-2023 12:45-0400 Body temperature 97.88 [degF] WAQAS GONZALEZ MD [address] [place] [address] 06-20-2023 12:45-0400 Diastolic Blood Pressure Non-Invasive 66 mm[Hg] WAQAS GONZALEZ MD [address] [place] [address] 06-20-2023 12:45-0400 Heart rate 72 /min WAQAS GONZALEZ MD [address] [place] [address] 06-20-2023 12:45-0400 Reason For Taking VItal Signs WAQAS GONZALEZ MD [address] [place] [address] 06-20-2023 12:45-0400 Respiratory rate 18 /min WAQAS GONZALEZ MD [address] [place] [address] 06-20-2023 12:45-0400 Systolic Blood Pressure Non-Invasive 120 mm[Hg] WAQAS GONZALEZ MD [address] [place] [address] 06-20-2023 11:06-0400 Body temperature 98.24 [degF] WAQAS GONZALEZ MD [address] [place] [address] 06-20-2023 11:06-0400 Diastolic Blood Pressure Non-Invasive 67 mm[Hg] WAQAS GONZALEZ MD [address] [place] [address] 06-20-2023 11:06-0400 Heart rate 73 /min WAQAS GONZALEZ MD [address] [place] [address] 06-20-2023 11:06-0400 Reason For Taking VItal Signs WAQAS GONZALEZ MD [address] [place] [address] 06-20-2023 11:06-0400 Respiratory rate 18 /min WAQAS GONZALEZ MD [facility] 06-20-2023 11:06-0400 Systolic Blood Pressure Non-Invasive 124 mm[Hg] WAQAS GONZALEZ MD [facility] 06-20-2023 07:13-0400 Heart rate 76 /min WAQAS GONZALEZ MD [address] [place] [address] 06-20-2023 06:27-0400 Blood Pressure Cuff Size WAQAS GONZALEZ MD [address] [place] [address] 06-20-2023 06:27-0400 Blood Pressure Location WAQAS GONZALEZ MD [address] [place] [address] 06-20-2023 06:27-0400 Blood Pressure Method WAQAS GONZALEZ MD [address] 06-20-2023 01:01-0400 Blood Pressure Cuff Size WAQAS GONZALEZ MD [address] [place] [address] 06-20-2023 01:01-0400 Blood Pressure Location WAQAS GONZALEZ MD [address] [place] [address] 06-20-2023 01:01-0400 Blood Pressure Method WAQAS GONZALEZ MD [address] [place] [address] 06-20-2023 01:01-0400 Heart rate 64 /min WAQAS GONZALEZ MD [address] [place] [address] 06-19-2023 08:02-0400 Heart rate 77 /min WAQAS GONZALEZ MD [address] [place] [address] 06-18-2023 23:05-0400 Blood Pressure Cuff Size WAQAS GONZALEZ MD [address] [place] [address] 06-18-2023 23:05-0400 Blood Pressure Location WAQAS GONZALEZ MD [facility] 06-18-2023 23:05-0400 Blood Pressure Method WAQAS GONZALEZ MD [address] [place] [address] 06-18-2023 20:42-0400 Body height 154 cm WAQAS GONZALEZ MD [facility] 06-18-2023 20:42-0400 Body weight 104.5 kg WAQAS GONZALEZ MD [facility] 06-18-2023 20:42-0400 Body weight 44.06 kg/m2 WAQAS GONZALEZ MD [facility] 06-18-2023 10:02-0400 SaO2% (BldA) [Mass fraction] 92.9 % WAQAS GONZALEZ MD [facility] 06-18-2023 06:17-0400 Body weight 104.5 kg WAQAS GONZALEZ MD [facility] 02-16-2022 14:53-0500 Body temperature 98.06 [degF] DR NASRA MENEZES MD [facility] 02-16-2022 14:53-0500 Diastolic Blood Pressure Non-Invasive [address] NASRA MENEZES MD [address] [place] [address] 02-16-2022 14:53-0500 Heart rate 81 /min DR NASRA MENEZES MD [facility] 02-16-2022 14:53-0500 Respiratory rate 17 /min DR NASRA MENEZES MD [facility] 02-16-2022 14:53-0500 Systolic Blood Pressure Non-Invasive [address] NASRA MENEZES MD [facility] 02-16-2022 14:38-0500 Heart rate 78 /min DR NASRA MENEZES MD [facility] 02-16-2022 14:38-0500 Respiratory rate 17 /min DR NASRA MENEZES MD [facility] 02-16-2022 08:45-0500 Blood Pressure Cuff Size DR NASRA MENEZES MD [address] [place] [address] 02-16-2022 08:45-[address] NASRA MENEZES MD [address] [place] [address] 02-16-2022 08:45-[address] NASRA MENEZES MD [address] [place] [address] 02-16-2022 08:45-0500 Body temperature 97.52 [degF] DR NASRA MENEZES MD [address] [place] [address] 02-16-2022 08:45-0500 Diastolic Blood Pressure Non-Invasive [address] NASRA MENEZES MD [address] [place] [address] 02-16-2022 08:45-0500 Heart rate 67 /min DR NASRA MENEZES MD [address] 02-16-2022 08:45-0500 Reason For Taking VItal Signs DR NASRA MENEZES MD [address] [place] [address] 02-16-2022 08:45-0500 Respiratory rate 19 /min DR NASRA MENEZES MD [address] [place] [address] 02-16-2022 08:45-0500 Systolic Blood Pressure Non-Invasive [address] NASRA MENEZES MD [address] [place] [address] 02-16-2022 07:34-0500 Heart rate 62 /min DR NASRA MENEZES MD [address] [place] [address] 02-15-2022 21:40-0500 Diastolic Blood Pressure Non-Invasive [address] NASRA MENEZES MD [address] [place] [address] 02-15-2022 21:40-0500 Heart rate 84 /min DR NASRA MENEZES MD [address] [place] [address] 02-15-2022 21:40-0500 Systolic Blood Pressure Non-Invasive [address] NASRA MENEZES MD [address] [place] [address] 02-15-2022 21:28-0500 Body temperature 98.06 [degF] DR NASRA MENEZES MD [facility] 02-14-2022 22:02-0500 Heart rate 61 /min DR NASRA MENEZES MD [facility] 02-13-2022 15:35-0500 Reason For Taking VItal Signs DR NASRA MENEZES MD [address] [place] [address] 02-13-2022 07:49-0500 Reason For Taking VItal Signs DR NASRA MENEZES MD [facility] 02-12-2022 22:07-0500 Body height [address] NASRA MENEZES MD [facility] 02-12-2022 22:07-0500 Body weight 102.[address] NASRA MENEZES MD [address] [place] [address] 02-12-2022 22:07-0500 Body weight 42.58 kg/m2 DR NASRA MENEZES MD [facility] 02-12-2022 11:16-0500 Body temperature 98.24 [degF] DR NASRA MENEZES MD [facility] 02-12-2022 11:16-0500 Body weight 102.[address] NASRA MENEZES MD [facility] Encounters Encounter Date Encounter Type Care Provider Facility Start: 09-01-2024 End: 09-01-2024 Office outpatient visit 25 minutes Paulette Ram NP Work Phone: [facility] Comment on above: Hospital discharge f ollow-up (Primary Dx); Acute on chronic respiratory failure with hypoxemia (HCC); COPD exacerbation (HCC); Community acquired pneumonia of right lower lobe of lung; JOCELIN (obstructive sleep apnea); Smoking history Start: 09-01-2024 End: 09-01-2024 ambulatory PAULETTE RAM [facility] Start: 08-18-2024 ambulatory Kaleb Andersono [facility] Fac[facility] ty:[facility] Start: 08-13-2024 End: 08-13-2024 Telephone encounter Arnoldo Bustillos RCP [facility] Resp Therapy Start: 08-03-2024 End: 08-11-2024 Evaluation and management of inpatient Stacia Juarez DO Work Phone: [facility] Cardiac Progressive Care Unit PCU 2E Comment on above: COPD exacerbation (H CC) (Primary Dx); Acute on chronic congestive heart failure, unspecified heart failure type (HCC); Acute hypoxic respiratory failure (HCC) Start: 04-17-2024 ambulatory Tacos Bender Camille ility:[facility] Start: 04-17-2024 End: 04-19-2024 Evaluation and management of inpatient Trip Hamilton Facility:[facility] Start: 03-11-2024 ambulatory Kaleb IRIZARRY Facili ty:[facility] Start: 02-09-2024 End: 02-09-2024 ambulatory Kaleb Andersono EDIE Facility:[facility] Start: 02-02-2024 End: 02-02-2024 ambulatory Kaleb Andersono EDIE Facility:[facility] Start: 01-12-2024 End: 01-12-2024 ambulatory Kaleb Andersono EDIE Facility:[facility] Start: 01-02-2024 End: 01-02-2024 ambulatory Kaleb Andersono EDIE Facility:[facility] Start: 12-29-2023 End: 12-29-2023 ambulatory Kaleb IRIZARRY Facility:[facility] Start: 11-17-2023 ambulatory Kaleb Andersono EDIE Facili ty:[facility] Start: 11-11-2023 End: 11-11-2023 ambulatory Kalli De Anda APRN.CNP Work Phone: [facility] Comment on above: Acute pain of right shoulder (Primary Dx); Personal history of fall; Non-traumatic rhabdomyolysis; Hypertension, unspecified type; Chronic obstructive pulmonary disease, unspecified COPD type (HCC); Debility Start: 11-11-2023 End: 11-11-2023 Telemedicine consultation with patient Kalli DeA nda CHANDANA Work Phone: [facility] Start: 11-05-2023 End: 11-05-2023 ambulatory Kalli De Anda APRN.VENTILATOR SPECIALIST Work Phone: [facility] Comment on above: Acute pain of right shoulder (Primary Dx); Personal history of fall; Non-traumatic rhabdomyolysis; Hypertension, unspecified type; Chronic obstructive pulmonary disease, unspecified COPD type (HCC); Debility; Dysuria Start: 11-05-2023 End: 11-05-2023 Telemedicine consultation with patient Kalli De Anda APRN.VENTILATOR SPECIALIST Work Phone: [facility] Start: 11-03-2023 End: 11-03-2023 ambulatory Kalli De Anda APRN.VENTILATOR SPECIALIST Work Phone: [facility] Comment on above: Acute pain of right shoulder (Primary Dx); Personal history of fall; Non-traumatic rhabdomyolysis; Hypertension, unspecified type; Chronic obstructive pulmonary disease, unspecified COPD type (HCC); Debility Start: 11-03-2023 End: 11-03-2023 Telemedicine consultation with patient Kalli De Anda APRN.VENTILATOR SPECIALIST Work Phone: [facility] Start: 10-29-2023 End: 10-29-2023 ambulatory Kalli De Anda APRN.[facility] Work Phone: [facility] Comment on above: Acute pain of right shoulder (Primary Dx); Personal history of fall; Non-traumatic rhabdomyolysis; Hypertension, unspecified type; Chronic obstructive pulmonary disease, unspecified COPD type (HCC); Debility; Dysuria Start: 10-29-2023 End: 10-29-2023 Telemedicine consultation with patient Kalli De Anda APRN.VENTILATOR SPECIALIST Work Phone: [facility] Start: 10-27-2023 End: 10-27-2023 ambulatory Kalli De Anda APRN.VENTILATOR SPECIALIST Work Phone: [facility] Comment on above: Non-traumatic rhabdo myolysis (Primary Dx); Acute pain of right shoulder; Personal history of fall; Hypertension, unspecified type; Chronic obstructive pulmonary disease, unspecified COPD type (HCC); Debility; Abnormal finding on urinalysis; Other specified hypothyroidism Start: 10-27-2023 End: 10-27-2023 Telemedicine consultation with patient Kalli De Anda APRN.VENTILATOR SPECIALIST Work Phone: [facility] Start: 10-21-2023 End: 10-24-2023 Evaluation and management of inpatient EMILY MCCARTY Facility:[id number] Start: 10-16-2023 ambulatory Kalli vigil APRN.VENTILATOR SPECIALIST Work Phone: [facility] Comment on above: Urinary tract infect ion with hematuria, site unspecified (Primary Dx); Haemophilus influenzae infection; Hypertension, unspecified type; Other specified hypothyroidism; Acute hypoxic respiratory failure (HCC); Hypokalemia; Debility Start: 10-16-2023 Telemedicine consult ation with patient Kalli De Anda APRN.VENTILATOR SPECIALIST Work Phone: [facility] Start: 10-14-2023 ambulatory Kalli vigil APRN.VENTILATOR SPECIALIST Work Phone: [facility] Comment on above: Urinary tract infect ion with hematuria, site unspecified (Primary Dx); Haemophilus influenzae infection; Hypertension, unspecified type; Other specified hypothyroidism; Acute hypoxic respiratory failure (HCC); Hypokalemia; Debility Start: 10-14-2023 Telemedicine consult ation with patient Kalli De Anda APRN.VENTILATOR SPECIALIST Work Phone: [facility] Start: 10-09-2023 ambulatory Kalli vigil APRN.VENTILATOR SPECIALIST Work Phone: [facility] Comment on above: Urinary tract infect ion with hematuria, site unspecified (Primary Dx); Haemophilus influenzae infection; Hypertension, unspecified type; Other specified hypothyroidism; Acute hypoxic respiratory failure (HCC); Debility Start: 10-09-2023 Telemedicine consult ation with patient Kalli De Anda APRN.VENTILATOR SPECIALIST Work Phone: [facility] Start: 10-07-2023 ambulatory Kalli vigil APRN.VENTILATOR SPECIALIST Work Phone: [facility] Comment on above: Urinary tract infect ion with hematuria, site unspecified (Primary Dx); Haemophilus influenzae infection; Hypertension, unspecified type; Other specified hypothyroidism; Acute hypoxic respiratory failure (HCC); Debility Start: 10-07-2023 Telemedicine consult ation with patient Kalli De Anda APRN.VENTILATOR SPECIALIST Work Phone: [facility] Start: 10-02-2023 ambulatory Kalli vigil TAPEMAN.VENTILATOR SPECIALIST Work Phone: [facility] Comment on above: Urinary tract infect ion with hematuria, site unspecified (Primary Dx); Haemophilus influenzae infection; Hypertension, unspecified type; Other specified hypothyroidism; Acute hypoxic respiratory failure (HCC); Debility; OAB (overactive bladder) Start: 10-02-2023 Telemedicine consult ation with patient Kalli De Anda APRN.VENTILATOR SPECIALIST Work Phone: [facility] Start: 09-30-2023 ambulatory Kalli vigil TAPEMAN.VENTILATOR SPECIALIST Work Phone: [facility] Comment on above: Urinary tract infect ion with hematuria, site unspecified (Primary Dx); Haemophilus influenzae infection; Hypertension, unspecified type; Other specified hypothyroidism; Acute hypoxic respiratory failure (HCC); Debility Start: 09-30-2023 Telemedicine consult ation with patient Kalli De Anda APRN.VENTILATOR SPECIALIST Work Phone: [facility] Start: 09-26-2023 ambulatory Kalli vigil TAPEMAN.VENTILATOR SPECIALIST Work Phone: [facility] Comment on above: Urinary tract infect ion with hematuria, site unspecified (Primary Dx); Hypertension, unspecified type; Other specified hypothyroidism; Acute hypoxic respiratory failure (HCC); Debility Start: 09-26-2023 Telemedicine consult ation with patient Kalli De Anda APRN.VENTILATOR SPECIALIST Work Phone: [facility] Start: 09-23-2023 ambulatory Kalli vigil TAPEMAN.VENTILATOR SPECIALIST Work Phone: [facility] Comment on above: Urinary tract infect ion with hematuria, site unspecified (Primary Dx); Hypertension, unspecified type; Other specified hypothyroidism; Acute hypoxic respiratory failure (HCC); Debility; OAB (overactive bladder) Start: 09-23-2023 Telemedicine consult ation with patient Kalli De Anda APRN.VENTILATOR SPECIALIST Work Phone: [facility] Start: 09-13-2023 End: 09-23-2023 Evaluation and management of inpatient EMILY MCCARTY Facility:[id number] Start: 09-03-2023 End: 09-03-[address] EMILY MCCARTY MD Facility:A Start: 08-01-2023 End: 08-05-[address] EMILY MCCARTY MD Facility:A Start: 06-18-2023 End: 06-20-2023 Evaluation and management of inpatient WAQAS GONZALEZ MD [facility] Start: 06-09-[address] EMILY MCCARTY MD F acility:A Start: 05-23-2023 End: 05-23-[address] EMILY MCCARTY MD Facility:A Start: 02-03-2023 End: 02-07-[address] EMILY MCCARTY MD Facility:A Start: 12-31-2022 End: 12-31-2022 Emergency department patient visit EMILY MCCARTY Facility:[id number] Start: 11-01-[address] EMILY MCCARTY MD F acility:A Start: 04-08-2022 End: 04-08-2022 Patient encounter procedure NASIR KNUTSON TAPEMAN-VENTILATOR SPECIALIST [facility] Start: 02-12-2022 End: 02-16-2022 Evaluation and management of inpatient DR NASRA MENEZES MD [facility] Start: 01-16-[address] Ari Pegueroman Facility:[id number] Start: 01-22-2021 End: 01-22-2021 Patient encounter procedure MARNI SAMSON TAPEMAN-VENTILATOR SPECIALIST [facility] Start: 01-21-2018 Patient encounter procedure Angelo Mallorylas vegasshelby Facility:[id number] Start: 12-22-2017 Patient encounter procedure Angelo Gay [facility] Facility:[id number] Procedures Date Procedure Procedure Detail Performing Clinician [...] w/ wom-mode compl spec&colr d Fawn Dover TAPEMAN - VENTILATOR SPECIALIST Work Phone: Start: 08-06-2024 Radiologic exam ches [...] by LYDIA with non-probe detection Fawn Dover [facility] [employer] [facility] Work Phone: Start: 08-04-2024 Smr prim src gram/gi emsa stain bct fungi/cell Fawnlino Dover [facility] [employer] [facility] Work Phone: Start: 08-04-2024 Iaadiadoo not otherw ise specified Fawnlino Dover [facility] [employer] [facility] Work Phone: Start: 08-04-2024 LEGIONELLA AND STREP TOCOCCUS URINE ANTIGEN, ORDERABLE Fawnlino Dover [facility] [employer] [facility] Work Phone: Start: 08-04-2024 URINE HOLD CUP Fawnlino Rebollary [facility] [employer] [facility] Work Phone: Start: 08-04-2024 Respiratory pathogen s DNA and RNA panel - Nasopharynx by LYDIA with non-probe detection Fawn Dover [facility] [employer] [facility] Work Phone: Start: 08-03-2024 OXYGEN THERAPY Fransisco [...] Comment: Speci men Type: BLOOD SPECIMENOrdering Facility: [facility] Address: [address] [place] [address] [place] [address] Performed By: #### L [id number], TSCR ####[facility] BLOOD BANKCLIA [id number] [address] Start: 07-04-2022 Echocardiography WAQAS GONZALEZ MD [...] and dilation of esophageal stricture MARNI SAMSON TAPEMAN-VENTILATOR SPECIALIST Start: 03-10-2015 Dental MARNI MILLER TAPEMAN-VENTILATOR SPECIALIST Start: 03-10-2013 Total knee replacement MARNI SAMSON TAPEMAN-VENTILATOR SPECIALIST Start: 03-10-2000 Decompression of med rufina nerve MARNI SAMSON TAPEMAN-VENTILATOR SPECIALIST Start: 03-10-1989 Decompression of med rufina nerve MARNI SAMSON TAPEMAN-VENTILATOR SPECIALIST Start: 03-10-1964 Dilation and curetta ge of uterus MARNI SAMSON TAPEMAN-VENTILATOR SPECIALIST Start: 03-10-1944 Tonsil and adenoid s tructure (body structure) MARNI SAMSON TAPEMAN-Skift Arthroplasty of shoulder KELSEY SAMSON TAPEMANFroont Arthroscopy of knee MARNI SAMOSN TAPEMANFroont Cholecystectomy MARNI BOB TAPEMAN-Skift Extraction of cataract RICCARDO SAMSON TAPEMANFroont H/O: hysterectomy MARNI MILLER TAPEMANFroont History of lumbar fusion KELSEY SAMSON TAPEMANFroont History of total rep lacement of right hip joint MARNI SAMSON TAPEMANFroont Neuroplasty &/transp os median nrv carpal tunne MARNI SAMSON TAPEMANFroont Spinal arthrodesis MARNI SAMSON TAPEMANFroont Plan of Treatment Date Care Activity Detail Author Start: 10-23-2026 Diabetes Screening [facility] Start: 09-20-2026 Diabetes Screening [facility] Start: 08-11-2025 Creatinine measurement Creatinine Le nikky [facility] Start: 08-11-2025 Potassium measurement Potassium Bethany willingham [facility] Start: 08-06-2025 Echocardiography Echocardiogram [facility] Start: 02-21-2025 End: 02-21-2025 Patient encounter procedure 02/21/2025 9:30 AM EST Office Visit [facility] Pulmonary and Sleep Medicine [facility] [address] [place] [address] Paulette Ram NP [address] [place] [address] [facility] Pulmonary and Sleep Medicine [facility] Start: 09-01-2024 End: 09-01-2025 XR Chest 2 Views XR chest 2 views Imaging Routine Community acquired pneumonia of right lower lobe of lung Expected: 09/01/2024 (Approximate), Expires: 09/01/2025 [facility] Work Phone: Comment on above: Expected: 09/01/2024 (Approximate), Expires: 09/01/2025 Start: 09-01-2024 End: 09-01-2024 Patient encounter procedure 09/01/2024 9:30 AM EDT Office Visit [facility] Pulmonary [facility] Sleep Medicine [facility] [address] [place] [address] Paulette Ram NP [address] [place], [place] [id number] [facility] Pulmonary [facility] Sleep Medicine [facility] Start: 03-10-2024 Medicare Advantage A nnual Wellness Visit Medicare Advantage Annual Wellness Visit [facility] Start: 11-09-2023 Covid-19 Vaccine ( season) Covid-19 Vaccine ( season) [facility] Start: 11-09-2023 COVID-19 Vaccine ( season) COVID-19 Vaccine ( season) [facility] Start: 11-09-2023 Influenza vaccination Influenza Vacc ine (#1) [facility] Start: 03-10-2023 Advance Directive Discussion Advance Directive Discussion [facility] Start: 03-10-2023 Behavioral Health Screening Behavioral Health Screening [facility] Start: 11-08-2022 Covid-19 Vaccine ( season) Covid-19 Vaccine ( season) [facility] Start: 03-22-2021 Shingrix Vaccine (2 of 2) Nation grix Vaccine (2 of 2) [facility] Start: 03-22-2021 Zoster Vaccines (2 of 2) Zoster Vacc gutierrez (2 of 2) [facility] Start: 2013 RSV Immunization for Adults (1 - 1-dose 75+ series) RSV Immunization for Adults (1 - 1-dose 75+ series) [facility] Start: 11-19-2003 Screening for osteoporosis Bone Dens ity Screening [facility] Start: 1998 RSV Vaccine (1 - 1-d ose 60+ series) RSV Vaccine (1 - 1-dose 60+ series) [facility] Start: 09-11-1958 DTaP/Tdap/Td Vaccine s (1 - Tdap) DTaP/Tdap/Td Vaccines (1 - Tdap) [facility] Start: 1957 Urine microalbumin profile DTa P,Tdap,Td Vaccine (1 - Tdap) [facility] Start: 1956 Anxiety Screening Anxiety Screening [facility] Start: 1956 Depression Screening Depression Scre ening [facility] Start: 1950 Depression Monitoring Depression Mon itoring [facility] Start: 1938 Lipid panel Lipid Panel [facility] Start: 1938 Screening for osteoporosis Bone Dens ity Scan [facility] Start: 1938 Thyroid stimulating hormone measurement TSH Level [facility] Immunizations Immunization Date Immunization Notes Care Provider Fa [facility] 02-26-2023 influenza, high dose seasonal, preservative-free; Translations: [Fluad Quadrivalent PF ] WAQAS GONZALEZ MD [facility] Comment on above: Result Comment: veri fied by Shira Barnes LPN 02-26-2023 influenza virus vacc ine, unspecified formulation Kalli De Anda APRN.VENTILATOR SPECIALIST Work Phone: [facility] 01-23-2022 influenza, high dose seasonal, preservative-free DR NASRA MENEZES MD [facility] 02-28-2021 SARS-CoV-2 (COVID-19 ) mRNA-[address] NASRA MENEZES MD [facility] 01-25-[address] NASRA MENEZES MD [facility] 12-11-2020 influenza, injectabl e, quadrivalent, contains preservative; Translations: [Fluad Quadrivalent PF ] MARNI SAMSON APRN-VENTILATOR SPECIALIST [facility] 07-04-2020 SARS-CoV-2 (COVID-19 ) mRNA-1273 vaccine MARNI SAMSON APRN-VENTILATOR SPECIALIST [facility] Comment on above: Result Comment: 2nd dose 06-01-2020 SARS-CoV-2 (COVID-19 ) mRNA-1273 vaccine MARNI [facility]SON [facility] Comment on above: Result Comment: 1st dose 01-13-2020 Influenza vaccine, quadrivalent, adjuvanted; Translations: [Fluad Quadrivalent adjuvanted] MARNI SAMSON [facility] 01-06-2019 Influenza, injectabl e, Madin [place] Canine Kidney, preservative free, quadrivalent; Translations: [Flucelvax PF Quadrivalent ] MARNI SAMSON [facility] 12-07-2018 pneumococcal conjuga te vaccine, 13 valent; Translations: [Prevnar 13] MARNI SAMSON [facility] 11-25-2005 pneumococcal polysaccharide vaccine, 23 valent MARNI SAMSON [facility] Payers Date Payer Category Payer Medicare HMO [employer] AAR MEDICAR E ADVANTAGE [id number] 2023 Self-pay 2023 Unknown [id number] 2023 Medicare [id number] 2023 Medicaid [facility] MEDICAID MYC ARE [facility] MEDICAID [id number] 2023-Present [phone] [address] [place] [address] Medicaid [id number] 2023 Medicare [facility] AARP MEDICAR E [facility] MEDICARE HMO [id number] 2023-Present [phone] [address] [address] [place] [address] HMO [id number] 2016 Private Health Insurance [id number] 1938 Unknown [id number] 2.16.840.1.344476.3.579. 2.356 1938 Unknown [id number] 2.16.840.1.832162.3.579. 2.356 1938 Unknown [id number] 2.16.840.1.058696.3.579. 2.62 1938 Unknown [id number] 2.16.840.1.233879.3.579. 2.62 1938 Unknown [id number] 2.16.840.1.895559.3.579. 2.62 1938 Unknown [id number] 2.16.840.1.906303.3.579. 2.62 1938 Unknown [id number] 2.16.840.1.816002.3.579. 2.62 1938 Unknown [id number] 2.16.840.1.224742.3.579. 2.62 1938 Unknown [id number] 2.16.840.1.982678.3.579. 2.627 1938 Unknown [id number] 2.16.840.1.158621.3.579. 2.1069 Private Health Insurance [id number] Unknown [id number] Unknown [id number] 2.16.840.1.864024.3.579. 2.462 Unknown [id number] 2.16.840.1.910657.3.579. 2.462 Unknown [id number] 2.16.840.1.907931.3.579. 2.462 Unknown [id number] 2.16.840.1.849035.3.579. 2.462 Unknown [id number] 2.16.840.1.801745.3.579. 2.462 Unknown [id number] 2.16.840.1.446203.3.579. 2.462 Unknown [id number] 2.16.840.1.730451.3.579. 2.462 Unknown [id number] 2.16.840.1.410547.3.579. 2.462 Unknown [id number] 2.16.840.1.023563.3.579. 2.462 Unknown [id number] 2.16.840.1.731450.3.579. 2.462 Unknown [id number] 2.16.840.1.746769.3.579. 2.462 Unknown [id number] 2.16.840.1.166736.3.579. 2.462 Social History Date Type Detail Facility Tobacco Tobacco Use: For mellisa smoker- quit 1960. Type: Cigarettes. [facility] Sex Assigned At Female [facility] Tobacco smoking status No Smokin g Status Entered [facility] unknown [facility] Start: 09-15-2023 End: 08-04-2024 History of Social function [facility] Start: 09-15-2023 End: 08-04-2024 [facility] Utilities [facility] Has the electric, [employer] s, oil, or water company threatened to shut off services in your home in past 12Mo No [facility] (I/We) worried imguel er (my/our) food would run out before (I/we) got money to buy more. Never true [facility] In the past 12 month s, has lack of transportation kept you from medical appointments or from getting medications? No [facility] Start: 1940 Sex Assigned At Not on file [facility] Start: 08-04-2024 Tobacco smoking status NHIS Never smoked tobacco [facility] Start: 08-04-2024 Tobacco use and exposure Smokeless tobacco non-user [facility] How often to you hav e a drink containing alcohol? Never [facility] How hard is it for y ou to pay for the very basics like food, housing, medical care, and heating Not very hard [facility] Do you feel stress - tense, restless, nervous, or anxious, or unable to sleep at night because your mind is troubled all the time - these days [OSQ] Only a little [facility] Start: 10-08-2021 Sex Female (finding) [facility] Functional Status Date Assessment Result Facility 08-04-2024 Total score [AUDIT-C] 0 08/05/19 25 5:13 AM Genaro Bryan, RN [facility] 06-20-2023 Functional Status Repositions se lf, Encouraged/reinforced importance of turning [facility] 06-20-2023 Functional Status Room check performed [facility] 06-20-2023 Functional Status Mod I [facility] 06-20-2023 Functional Status [facility] 06-20-2023 Functional Status [facility] 06-20-2023 Functional Status [facility] 06-19-2023 Functional Status [facility] 06-19-2023 Functional Status Pt wanting to get aide to come into her home and assist her around the house. Pt reports that she was looking into [facility] but cannot afford it. [facility] 06-19-2023 Functional Status Multilevel home [facility] 06-19-2023 Functional Status Breakfast Percent 100 A [facility] 06-18-2023 Functional Status [facility] 06-18-2023 Functional Status Sensory Deficits None A [facility] 02-16-2022 Functional Status bilateral knee high [facility] 02-16-2022 Functional Status Room check performed [facility] 02-16-2022 Functional Status [facility] 02-16-2022 Functional Status [facility] 02-15-2022 Functional Status [facility] 02-15-2022 Functional Status 25 [facility] 02-15-2022 Functional Status [facility] 02-15-2022 Functional Status Pt wanting to get aide to come into her home and assist her around the house. Pt reports that she was looking into [facility] but cannot afford it. [facility] 02-14-2022 Functional Status [facility] 02-13-2022 Functional Status [facility] 02-13-2022 Functional Status Assistive Device Cane A [facility] Mental Status Date Assessment Result Facility 06-20-2023 Mental Status Orientation Oriented x 4 [facility] 06-20-2023 Mental Status Orientation Assessment Orie nted x 4 [facility] 06-20-2023 Mental Status [facility] 06-20-2023 Mental Status [facility] 02-16-2022 Mental Status Orientation Oriented x 4 [facility] 02-16-2022 Mental Status [facility] 02-15-2022 Mental Status [facility] 02-15-2022 Mental Status [facility] Clinical Notes 08-29-2020 to 09-01-2024 Paulette Ram NP - 09/01/2024 9:30 AM EDTPatient InstructionsTelephone Encounter - Arnoldo Bustillos RCP - 08/13/2024 2:18 PM EDTTelephone Encounter - Arnoldo Bustillos RCP - 08/13/2024 2:18 PM EDT Note Date & Type Note Facility 09-01-2024 History of Present illness Narrative Images from the original note were not included. [facility] Medical [facility] Pulmonary Medicine [address] [place] [address] Date of Service: 09/01/2024 Visit type: An [...] Followed by pulmonary Presents today accompanied by food mobile driver, Asim, from [facility] where patient resides. Patient is known as [...] prevent readmissions to the hospital. 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 Rinse mouth with water after use to reduce aftertaste and incidence of candidiasis. Do not swallow., Disp: 2 each, Rfl: 0 [5] No family history on file. documented in this encounter [facility] 09-01-2024 Instructions Ronda Chapman - 09/01/2024 9:30 AM EDT YOUR APPOINTMENT TODAY WAS WITH THE [facility] LUNG NODULE [facility], COPD CLINIC, PULMONARY AND SLEEP MEDICINE OFFICE. PLEASE CALL OUR OFFICE AT [phone] for our [place] office location or [phone] for our [place] location, IF YOU HAVE NOT RECEIVED YOUR [...] to make improvements. COVID-19 VACCINATION INFORMATION: PH. [phone] [email or web address] [facility] Central Scheduling [phone] [facility] Sleep Scheduling [phone] documented in this encounter [facility] 08-13-2024 Telephone encounter Note COPD Navigator Note Called patient on home phone. No answer. Left Voicemail. [facility] 08-13-2024 Miscellaneous Notes COPD Navigator Note Called patient on home phone. No answer. Left Voicemail. documented in this encounter [facility] 08-11-2024 Nurse Note Patient sent with belongings with transport to facility at this time. [facility] 08-11-2024 Nurse Note Patient sent with belongings with transport to facility at this time. Report called to facility [facility], hallway 100. RN familiar with patient. Waiting [...] intact. Pt stood with max assist from landscape architecture professor for posterior assessment. Blanchable erythema/purple tissues noted to bilateral buttocks. DTI noted to right buttock, linear area of nonblanchable purple tissues, measures 1cm x 0.3cm, with surrounding blanchable erythema and purple tissues. See photo below. Wound AFFILIATE MARKETING MANAGER group consulted. Brief in place. Pt [...] Verbalized understanding. Prevention Measures in place, including: [place] sheet with pillows/wedges, Heels elevated off bed on pillows, Zinc/Moisture Barrier ointment (applied), Waffle chair cushion (ordered for pt). Skin Care precaution order set in place. Dietitian consult order placed d/t wound. PT consult in place. D/W nursing staff. Right buttock Will continue to follow pt. Please secure chat for any questions or concerns. Mago Cavazos RN documented in this encounter [facility] 08-11-2024 Nurse Note Report called to facility [facility], hallway 100. RN familiar with patient. Waiting on transport. [facility] 08-11-2024 History of Present illness Narrative Images from the original note were not included. PHYSICAL THERAPY [facility] Treatment Note Name/MRN: Krish Peralta ([id number]) Date of : 1940 Age: 83 y.o. Room[facility]Bed: [facility] A Visit #: 5 out of 8 Discharge Recommendation: Halfway Facility Equipment Needed: No Assessment Pt continues to make good overall progress towards established therapy goals this date. Remains limited by SOB and fatigue. Pt completed STS transfers with fww at [facility], Gait training with fww completed at [facility]/SBA. Pt tolerated all activity well and gave [...] Pt completed gait training with fww at [facility] progressing to SBAx1. Cues for proper foot [...] from the original note were not included. [facility] Pulmonary Medicine [address] [place] [phone] Patient - Krish Peralta, Age - 83 y.o. - 1940 Room Number - B2-255/B2-255 A Consulting - Helen Wan DO Primary Care Physician - No primary care provider on file. [id number] Date of Admission - 08/03/2024 4:21 PM [...] Okay for discharge from pulmonary standpoint [facility] Pulmonary Medicine [facility] [1] amLODIPine, 5 mg, Oral, q24h [...] Continue diet as ordered Adult diet Regular -Hog Ringer ordering meals -notified diet office of pt [...] muscle mass loss Fluid Accumulation: (moderate) Extremities Medicine Tech Strength: Not Performed Nutrition Assessment: 83 y.o [...] On: Kcal/kg Weight Used for Energy Requirements: [place] Weight for Energy Calculation (kg): 45 kg Total Energy Requirements (kcals/day): 1413-2354 (25-30 kcal/kg IBW) Weight Used for Protein Requirements: [place] Weight in Kg Used for Protein Requirements: [...] lb) (11/11/23) % Weight Change (Calculated): 11.7 [place] Body Weight (lbs) (Calculated): 100 lbs [place] Body Weight (Kg) (Calculated): 45 kg % [place] Body Weight (Calculated): 220 % BMI (kg/m2) [...] Continue current diet Kamilah Rodriguez RD Contact: *[phone] or via Secure Chat Hospitalist Progress Note 08/10/20246994905-7410: Please page la ([phone]) for patient care issues. [phone]: Please page [facility] Hospitalist for any issues. Subjective: Admit [...] EMMA RICHARDS Mobile Relation: Daughter Preferred language: [place] Citizen Photography Instructor needed? No Secondary Emergency Contact: LIONEL REYNOSO Mobile Relation: Son Preferred language: [place] Citizen Photography Instructor needed? No Helen Wan DO Division of Hospitalist Medicine Inpatient Medical Services/[facility] PAGER: Epic chat [1] No past medical [...] from the original note were not included. [facility] Pulmonary Medicine [address] [place] [address] [phone] Patient - Krish Peralta, Age - 83 y.o. - 1940 Room Number - B2-255/B2-255 A Consulting - Helen Wan DO Primary Care Physician - No primary care provider on file. [facility] # - [id number] Date of Admission - 08/03/2024 4:21 PM [...] cephalexin tolerating well [facility]rick [facility] Pulmonary Medicine [facility] [1] amLODIPine, 5 mg, Oral, q24h [...] original note were not included. PHYSICAL THERAPY [facility] Treatment Note Name/MRN: Krish Peralta ([id number]) Date of : 1940 Age: 83 y.o. Room/Bed: B2-255/[facility]255 A Visit #: 4 out of 8 (visits added by PT due to continued need for acute skilled PT) Discharge Recommendation: Halfway Facility Equipment Needed: No Assessment Pt demos [...] Raw Score (No Stairs) : 15 [facility] Score: Walked 25 ft or more [...] x1) Jocelyn Tian PT Hospitalist Progress Note 08/09/20246992844-0646: Please page me ([phone]) for patient care issues. [phone]: Please page [facility] Hospitalist for any issues. Subjective: Admit [...] the Lasix is helping. Adult diet Regular @[id number]@ 24HR INTAKE/OUTPUT: Intake/Output Summary (Last 24 hours) [...] recommending SNF (she came from facility at [facility] and plan is to go back to ECF with restorative therapy. However, she is still requiring a lot of O2 (on high flow NC) and pulmonary anticipating detention weaning and recommending LTACH -check daily labs Extended Emergency Contact Information Primary Emergency Contact: RALPHEMMA Mobile Relation: Daughter Preferred language: [place] Citizen Photography Instructor needed? No Secondary Emergency Contact: EDGARDO,LIONEL Mobile Relation: Son Preferred language: [place] Citizen Photography Instructor needed? No Gee Givens MD Division of Hospitalist Medicine Inpatient Medical Services/[facility] PAGER: Epic chat [1] No past medical [...] from the original note were not included. [facility] Pulmonary Medicine [address] [place] [phone] Patient - Krish Peralta, Age - 83 [...] as tolerated, keeping her on dry side [facility] Pulmonary Medicine [facility] [1] amLODIPine, 5 mg, Oral, q24h [...] original note were not included. PHYSICAL THERAPY [facility] Treatment Note Name/MRN: Krish Peralta ([id number]) Date of : 1940 Age: 83 y.o. Room/Bed: [facility]255/[facility] A Visit #: 3 out of 5 Discharge Recommendation: Halfway Facility Equipment Needed: No Assessment Pt continues [...] 08/09/2024 8:39 AM EDT Hospitalist Progress Note 08/08/20246997010-0336: Please page me ([phone]) for patient care issues. [phone]: Please page [facility] night Hospitalist for any issues. Subjective: Admit [...] maybe a little sob. Adult diet Regular @ZQCQ5OANWON@ 24HR INTAKE/OUTPUT: Intake/Output Summary (Last 24 hours) [...] recommending SNF (she came from facility at [facility] and plan is to go back to [facility] with restorative therapy. However, she is still requiring a lot of O2 (on high flow NC) and pulmonary anticipating terminal clerk weaning and recommending LTACH -check daily labs Extended Emergency Contact Information Primary Emergency Contact: EMMA RICHARDS Mobile Relation: Daughter Preferred language: [place] Citizen Photography Instructor needed? No Secondary Emergency Contact: LIONEL REYNOSO Mobile Relation: Son Preferred language: [place] Citizen Photography Instructor needed? No Gee Givens MD Division of Hospitalist Medicine Inpatient Medical Services/[facility] PAGER: Epic chat [1] No past medical [...] mg, Oral, Nightly Hospitalist Progress Note 08/07/2024 [phone]: Please page me ([phone]) for patient care issues. [phone]: Please page [facility] night Hospitalist for any issues. Subjective: Admit [...] maybe a little sob. Adult diet Regular @BLXK1MZDGCE@ 24HR INTAKE/OUTPUT: No intake or output data [...] recommending SNF (she came from facility at [facility] and plan is to go back to [facility] with restorative therapy. However, she is still requiring a lot of O2 (on high flow NC) and pulmonary anticipating terminal clerk weaning and recommending LTACH -check daily labs Extended Emergency Contact Information Primary Emergency Contact: EMMA RICHARDS Mobile Relation: Daughter Preferred language: [place] Citizen Photography Instructor needed? No Secondary Emergency Contact: LIONEL REYNOSO Mobile Relation: Son Preferred language: [place] Citizen Photography Instructor needed? No Gee Givens MD Division of Hospitalist Medicine Inpatient Medical Services/[facility] PAGER: Epic chat [1] No past medical [...] original note were not included. PHYSICAL THERAPY [facility] Treatment Note Name/MRN: Krish Peralta ([id number]) Date of : 1940 Age: 83 y.o. Room/Bed: [facility] A Visit #: 2 out of 5 Discharge Recommendation: Halfway Facility Equipment Needed: No Assessment Pt seated [...] from the original note were not included. [facility] Pulmonary Medicine [address] [place] [phone] Patient - Krish Peralta, Age - 83 [...] Neri MD Pulmonary & Critical Care Medicine [facility] [1] amLODIPine, 5 mg, Oral, q24h [...] in petrolatum [3] Hospitalist Progress Note 08/06/2024 [phone]: Please page me ([phone]) for patient care issues. [phone]: Please page [facility] Hospitalist for any issues. Subjective: Admit [...] no fevers or chills Adult diet Regular @[id number]@ 24HR INTAKE/OUTPUT: No intake or output data [...] recommending SNF (she came from facility at [facility] and plan is to go back to ECF with restorative therapy. However, she is still requiring a lot of O2 (on high flow NC) and pulmonary anticipating detention weaning and recommending LTACH -check daily labs Extended Emergency Contact Information Primary Emergency Contact: EMMA RICHARDS Mobile Relation: Daughter Preferred language: [place] Citizen Photography Instructor needed? No Secondary Emergency Contact: LIONEL REYNOSO Mobile Relation: Son Preferred language: [place] Citizen Photography Instructor needed? No Gee Givens MD Division of Hospitalist Medicine Inpatient Medical Services/[facility] PAGER: Epic chat [1] No past medical [...] original note were not included. PHYSICAL THERAPY [facility] Treatment Note Name/MRN: Krish Peralta ([id number]) Date of : 1940 Age: 83 y.o. Room/Bed: [facility] B Visit #: 1 out of 5 Discharge Recommendation: Halfway Facility Equipment Needed: No Assessment Pt continues [...] Chuck Ruvalcaba PT Hospitalist Progress Note 08/05/2024 [phone]: Please page me ([phone]) for patient care issues. [phone]: Please page [facility] Hospitalist for any issues. Subjective: Admit [...] No nausea or vomiting. Adult diet Regular @OTTD2IHNFMU@ 24HR INTAKE/OUTPUT: Intake/Output Summary (Last 24 hours) [...] EMMA RICHARDS Mobile Relation: Daughter Preferred language: [place] Citizen Photography Instructor needed? No Secondary Emergency Contact: LIONEL REYNOSO Mobile Relation: Son Preferred language: [place] Citizen Photography Instructor needed? No Gee Givens MD Division of Hospitalist Medicine Inpatient Medical Services/[facility] PAGER: Epic chat [1] No past medical [...] from the original note were not included. [facility] Pulmonary Medicine [address] [place], [place] [id number] Patient - Krish Peralta, Age - 83 y.o. - 1940 Room Number - B2-243/B2-243 B Consulting - Gee Givens MD Primary Care Physician - No primary care provider on file. [id number] Date of Admission - 08/03/2024 4:21 PM [...] Neri MD Pulmonary & Critical Care Medicine [facility] [1] amLODIPine, 5 mg, Oral, q24h [...] sodium chloride 0.9% [3] Hospitalist Progress Note 08/04/20246994549-6628: Please page me ([phone]) for patient care issues. [phone]: Please page [facility] night Hospitalist for any issues. Subjective: Admit [...] No fevers or chills. Adult diet Regular @[id number]@ 24HR INTAKE/OUTPUT: Intake/Output Summary (Last 24 hours) [...] EMMA RICHARDS Mobile Relation: Daughter Preferred language: [place] Citizen Photography Instructor needed? No Secondary Emergency Contact: LIONEL REYNOSO Mobile Relation: Son Preferred language: [place] Citizen Photography Instructor needed? No Gee Givens MD Division of Hospitalist Medicine Inpatient Medical Services/[facility] PAGER: Michele clancy [1] No past medical history on file. [2] [3] azithromycin, 500 mg, IntraVENous, q24h cefTRIAXone, 1,000 mg, IntraVENous, q24h enoxaparin, 30 mg, SubCUTAneous, 2 times per day ipratropium-albuterol, 1 ampule, Nebulization, q4h WA sodium chloride 0.9%, 10 mL, IntraVENous, 2 times per day Images from the original note were not included. PHYSICAL THERAPY [facility] Initial Evaluation Name/MRN: Krish Peralta ([id number]) Evaluation Date: 08/04/2024 Date of : 1940 Admission Date: 08/03/2024 4:21 PM Age: 83 y.o. Room/Bed: [facility] B Discharge Recommendation: Halfway Facility Equipment Needed: No Assessment IMPRESSION: Pt [...] Raw Score (No Stairs) : 12 [facility] Score: Static standing (1 or more [...] of Care supervision is transferred to a [facility] Therapy Services Physical Therapist. Goals and/or treatment [...] Jocelyn Tian PT documented in this encounter [facility] 08-11-2024 Note Formatting of this n ote might be different from the original. Discharge med list transmitted to RETURN BACK TO [facility] via [facility] per TCC request. [facility] 08-11-2024 Note Formatting of this n ote might be different from the original. Discharge med list transmitted to [facility]URN BACK TO [facility] via [facility] per TCC request. [facility] 08-11-2024 Note Formatting of this n ote might be different from the original. Rounds this am DCP: DC today Apostolic retail support associate time scheduled for 430 Facility notified RN notified with time and P# for report HALFWAY HOUSE COUNSELOR tasked to send DC packet and MAR to acility [facility] 08-11-2024 Note Formatting of this n ote might be different from the original. Rounds this am DCP: DC today Apostolic retail support associate time scheduled for 430 Facility notified RN notified with time and P# for report HALFWAY HOUSE COUNSELOR tasked to send DC packet and MAR to acility [facility] 08-11-2024 Miscellaneous Notes Discharge med list transmitted to [facility] BACK TO [facility] via [facility] per TCC request. Rounds this am DCP: DC today Apostolic retail support associate time scheduled for 430 Facility notified RN notified with time and P# for report HALFWAY HOUSE COUNSELOR tasked to send DC packet and MAR [...] updated notes to return back to [facility] via [facility] per [facility] request. Await review and response regarding ability to accept. TCC notified. Care Management Progress Note -Pt remains on 2E. -Pulmonology following. -O2 now down to 5L. -Receiving IV ATB and Lasix. -Since pt is now down to 5L O2, discharge plan at this time is back to [facility] with restorative therapy. Facility made aware. -senior nurse manager to follow and assist as needed. [...] Progress Note Called daughter Emma Richards @ [phone] to discuss DC planning. Informed her that therapy is recommending SNF [place]. Informed her that this TCC that her insurance is OON with therapy services at [facility] and that family would have to private pay. Daughter states she would like her to go back with restorative therapy at [facility]. Liaison at [facility] updated on daughter's plan to go back [...] told this TCC that she is from [facility]. This TCC called daughter Emma Richards @ [phone] and she confirmed that that is where pt is from and plans for her to return at [place]. Daughter states pt sees MD at [facility] and does not have her own PCP. Also pt gets meds supplied form [facility]. PT saw and is recommending SNF at [place]. Informed daughter and she said that pt's insurance is OON with [facility] and they would have to private pay for SNF services. This TCC called [facility] liaison and she confirmed this as well. I will reach back out to daughter to discuss her options, pt may have to go back with [facility] PT/OT possibly? Will continue to follow for DC needs. Length of Stay (Days): 1 GMLOS: No GMLOS Documented Referral placed to return back to [facility] via [facility] per [facility] request. Await review and response regarding ability to accept. TCC notified. documented in this encounter [facility] 08-11-2024 Note Hospitalist Discharg e Summary Krish [...] Disposition: Patient discharged in stable condition to [facility] LABS: CBC: Recent Labs 08/09/2431808/10/2445208/11/24 [...] Medications These med (more content not included)... [facility] 08-11-2024 Hospital course Narrative Hospitalist Discharge [...] Your Medications These medications were sent to [facility] [address] [place] [address] Hours: Friday to [...] Complexity: follow up within 7-14 calendar days (50738) [x] Severe Complexity: follow up within 7 calendar days (00914) Follow up Testing, Pending results or Referrals [...] frame. Signed: Helen Wan DO Division of [facility] Inpatient Medical Services/[facility] 08/11/2024, 12:53 PM Total time Spent on Discharge: 32 minutes documented in this encounter [facility] 08-11-2024 Hospital Discharge instructions Nancy Barnes RN [...] EMMA RICHARDS Mobile Relation: Daughter Preferred language: [place] Citizen Photography Instructor needed? No Secondary Emergency Contact: LIONEL REYNOSO Mobile Relation: Son Preferred language: [place] Citizen Photography Instructor needed? No Past Surgical History: No past [...] Minimal assistance Toileting Minimal assistance Feeding Independent Jewel Sorter Independent Med Delivery no Wound Care Documentation and Therapy: Wound/Incision 08/04/24 Pressure Injury Buttock Right;Medial (Active) Site Assessment Dry;[place];Intact 08/10/242041 Sanam-Wound Assessment Blanchable erythema 08/10/242041 Wound [...] Status Date: 08/03 [facility] [address] [phone] Dialysis Facility (if applicable) Name: Address: Dialysis Schedule: Phone: Fax: Wrapper Off/Line O Scribe Operator signature: ICIAN SECTION Name: Krish Peralta Prognosis: excellent Condition at Discharge: stable Rehab Potential (if transferring to Rehab): excellent Recommended Labs or Other Treatments After Discharge: none The individual is being admitted to a nursing facility directly from an [facility] or a unit of a [facility] that is not operated by or licensed by [facility] under section 5119.14 or 5160-3-15.1 5 The individual requires the level of services provided by a nursing facility for the condition for which he or she was treated in the hospital and, Physician Certification: I certify the above information and transfer of Krish Peralta is necessary for the continuing treatment of the diagnosis listed and that she requires fpc facility for less than 30 days. Update Admission H&P: No change in H&P PHYSICIAN SIGNATURE: documented in this encounter [facility] 08-11-2024 Note [facility] Wound Care Progress Note Krish Peralta AGE: 83 y.o. GENDER: female : 1940 Subjective: HISTORY of PRESENT ILLNESS HPI Krish Peralta is a 83 y.o. female who presents for a wound care follow up. HPI: Ms. Peralta is a 83 y.o. female with past medical history significant for COPD. Patient presented to the emergency room from fpc facility for shortness of breath. Patient admitted [...] and water, apply ET mix then leave REGULATORY AFFAIRS SPEC TID and PRN - Reposition q2hrs - Incontinent checks q2hrs - Waffle cushion while in chair Nutritional support Wound Care to follow Recommend to follow up at [facility] Outpatient wound care center after hospital discharge. [...] for constipation. [] (more content not included)... [facility] 08-10-2024 Plan of care note Problem: Knowledge Deficit Goal: Patient/family/caregiver demonstrates understanding of disease process, treatment plan, medications, and discharge instructions Outcome: Progressing Problem: Potential for Compromised Skin Integrity Goal: Skin Integrity is Maintained or Improved Outcome: Progressing Problem: Urinary Incontinence Goal: Perineal skin integrity is maintained or improved Outcome: Progressing [facility] 08-10-2024 Note Hospitalist Progress Note 08/10/[id number]: Please page me ([phone]) for patient care issues. [phone]: Please page [facility] night Hospitalist for any issues. Subjective: Admit [...] EMMA RICHARDS Mobile Relation: Daughter Preferred language: [place] Citizen Photography Instructor needed? No Secondary Emergency Contact: LIONEL REYNOSO Mobile Relation: Son Preferred language: [place] Citizen Photography Instructor needed? No Helen Wan DO Division of Hospitalist Medicine Inpatient Medical Services/[facility] PAGER: Codoon chat [1] No past medical history on [...] Topical, q8h traZODone, 50 mg, Oral, Nightly [facility] 08-10-2024 Note Formatting of this n [...] assistance with scheduling hospital follow-up with pulmonary. [facility] 08-10-2024 Note Formatting of this n ote [...] with scheduling hospital follow-up with pulmonary. T [facility] 08-10-2024 Note [facility] Wound Care Progress Note Krish Peralta AGE: 83 y.o. GENDER: female : 1940 Subjective: HISTORY of PRESENT ILLNESS HPI Krish Peralta is a 83 y.o. female who presents for a wound care follow up. HPI: Ms. Peralta is a 83 y.o. female with past medical history significant for COPD. [facility]. Patient admitted with [...] to follow Recommend to follow up at [facility] Outpatient wound care center after hospital discharge. [...] times daily. es (more content not included)... [facility] 08-10-2024 Plan of care note Problem: [...] RN Outcome: Progressing 08/10/2024 0140 by Sophy Omlos RN Outcome: Progressing Problem: Urinary Incontinence Goal: Perineal skin integrity is maintained or improved 08/10/2024144 by Sophy Olmos RN Outcome: Progressing 08/10/2024 014 by Sophy Olmos RN Outcome: Progressing Problem: Problem Interventions Goal: Promote nutritional intake 08/10/2024144 by Sophy Olmos RN Outcome: Progressing 08/10/2024 014 by Sophy Olmos RN Outcome: Progressing [facility] 08-10-2024 Plan of care note Problem: Knowledge [...] Interventions Goal: Promote nutritional intake Outcome: Progressing [facility] 08-09-2024 Plan of care note Problem: Knowledge [...] Interventions Goal: Promote nutritional intake Outcome: Progressing [facility] 08-09-2024 Note Hospitalist Progress Note 08/09/2024 [phone]: Please page me ([phone]) for patient care issues. [phone]: Please page [facility] night Hospitalist for any issues. Subjective: Admit [...] the Lasix is helping. Adult diet Regular @[id number]@ 24HR INTAKE/OUTPUT: Intake/Output Summary (Last 24 hours) [...] recommending SNF (she came from facility at [facility] and plan is to go back to [facility] with restorative therapy. However, she is still requiring a lot of O2 (on high flow NC) and pulmonary anticipating terminal clerk weaning and recommending LTACH -check daily labs Extended Emergency Contact Information Primary Emergency Contact: IRVINEMMA Vigil Mobile Relation: Daughter Preferred language: [place] Citizen Photography Instructor needed? No Secondary Emergency Contact: LIONEL REYNOSO Mobile Relation: Son Preferred language: [place] Citizen Photography Instructor needed? No Gee Givens MD Division of Hospitalist Medicine Inpatient Medical Services/[facility] PAGER: Epic chat [1] No past medical history on file. [2] [3] amLODIPine, 5 mg, Oral, q24h cephalexin, 1,000 mg, Oral, q8h enoxaparin, 30 mg, SubCUTAneous, 2 times per day escitalopram, 10 mg, Oral, Nightly furosem (more content not included)... [facility] 08-09-2024 Note Formatting of this n ote might be different from the original. Sent updated notes to return back to [facility] per TCC request. Await review and response regarding ability to accept. TCC notified. [facility] 08-09-2024 Note Formatting of this n ote might be different from the original. Sent updated notes to return back to [facility] via [facility] per TCC request. Await review and response regarding ability to accept. TCC notified. [facility] 08-09-2024 Note Formatting of this n ote might be different from the original. Care Management Progress Note -Pt remains on 2E. -Pulmonology following. -O2 now down to 5L. -Receiving IV ATB and Lasix. -Since pt is now down to 5L O2, discharge plan at this time is back to [facility] with restorative therapy. Facility made aware. -senior nurse manager to follow and assist as needed. Length of Stay (Days): 6 GMLOS: 4 [facility] 08-09-2024 Note Formatting of this n ote might be different from the original. Care Management Progress Note -Pt remains on 2E. -Pulmonology following. -O2 now down to 5L. -Receiving IV ATB and Lasix. -Since pt is now down to 5L O2, discharge plan at this time is back to [facility] with restorative therapy. Facility made aware. -senior nurse manager to follow and assist as needed. Length of Stay (Days): 6 GMLOS: 4 [facility] 08-09-2024 Note Care Management Prog ress Note -Pt remains on 2E. -Pulmonology following. -O2 now down to 5L. -Receiving IV ATB and Lasix. -Since pt is now down to 5L O2, discharge plan at this time is back to [facility] with restorative therapy. Facility made aware. -senior nurse manager to follow and assist as needed. Length of Stay (Days): 6 GMLOS: 4 [facility] 08-09-2024 Plan of care note Problem: [...] 015 by Sophy Olmos RN Outcome: Progressing [facility] 08-09-2024 Plan of care note Problem: Knowledge [...] Interventions Goal: Promote nutritional intake Outcome: Progressing [facility] 08-08-2024 Plan of care note Problem: Knowledge Deficit Goal: Patient/family/caregiver demonstrates understanding of disease process, treatment plan, medications, and discharge instructions Outcome: Progressing Problem: Potential for Compromised Skin Integrity Goal: Skin Integrity is Maintained or Improved Outcome: Progressing Problem: Urinary Incontinence Goal: Perineal skin integrity is maintained or improved Outcome: Progressing Problem: Problem Interventions Goal: Promote nutritional intake Outcome: Progressing [facility] 08-08-2024 Note Hospitalist Progress Note 08/08/2024 [phone]: Please page me ([phone]) for patient care issues. [phone]: Please page [facility] Hospitalist for any issues. Subjective: Admit [...] maybe a little sob. Adult diet Regular @[id number]@ 24HR INTAKE/OUTPUT: Intake/Output Summary (Last 24 hours) [...] recommending SNF (she came from facility at [facility] and plan is to go back to [facility] with restorative therapy. However, she is still requiring a lot of O2 (on high flow NC) and pulmonary anticipating terminal clerk weaning and recommending LTACH -check daily labs Extended Emergency Contact Information Primary Emergency Contact: IRVINEMMA Vigil Mobile Relation: Daughter Preferred language: [place] Citizen Photography Instructor needed? No Secondary Emergency Contact: LIONEL REYNOSO Mobile Relation: Son Preferred language: [place] Citizen Photography Instructor needed? No Gee Givens MD Division of Hospitalist Medicine Inpatient Medical Services/[facility] PAGER: Epic chat [1] No past medical [...] 2 times per (more content not included)... [facility] 08-08-2024 Plan of care note Problem: [...] 08/08/2024552 by Sophy Olmos RN Outcome: Progressing [facility] 08-08-2024 Plan of care note Problem: Knowledge [...] Interventions Goal: Promote nutritional intake Outcome: Progressing R [facility] 08-07-2024 Plan of care note Problem: Knowledge Deficit Goal: Patient/family/caregiver demonstrates understanding of disease process, treatment plan, medications, and discharge instructions Outcome: Progressing Problem: Potential for Compromised Skin Integrity Goal: Skin Integrity is Maintained or Improved Outcome: Progressing Problem: Urinary Incontinence Goal: Perineal skin integrity is maintained or improved Outcome: Progressing Problem: Problem Interventions Goal: Promote nutritional intake Outcome: Progressing [facility] 08-07-2024 Note Hospitalist Progress Note 08/07/2024 [phone]: Please page me ([phone]) for patient care issues. [phone]: Please page [facility] Hospitalist for any issues. Subjective: Admit [...] maybe a little sob. Adult diet Regular @[id number]@ 24HR INTAKE/OUTPUT: No intake or output data [...] recommending SNF (she came from facility at [facility] and plan is to go back to [facility] with restorative therapy. However, she is still requiring a lot of O2 (on high flow NC) and pulmonary anticipating detention weaning and recommending LTACH -check daily labs Extended Emergency Contact Information Primary Emergency Contact: EMMA RICHARDS Mobile Relation: Daughter Preferred language: [place] Citizen Photography Instructor needed? No Secondary Emergency Contact: LIONEL REYNOSO Mobile Relation: Son Preferred language: [place] Citizen Photography Instructor needed? No Gee Givens MD Division of Hospitalist Medicine Inpatient Medical Services/[facility] PAGER: Michele clancy [1] No past medical [...] Topical, q8h traZODone, 50 mg, Oral, Nightly [facility] 08-07-2024 Plan of care note Problem: [...] Interventions Goal: Promote nutritional intake Outcome: Progressing [facility] 08-06-2024 Note Formatting of this n ote [...] Length of Stay (Days): 3 GMLOS: 4 [facility] 08-06-2024 Note Formatting of this n ote [...] of Stay (Days): 3 GMLOS: 4 T [facility] 08-06-2024 Note Care Management Prog ress Note [...] Length of Stay (Days): 3 GMLOS: 4 [facility] 08-06-2024 Note Hospitalist Progress Note 08/06/2024 [phone]: Please page me ([phone]) for patient care issues. [phone]: Please page [facility] night Hospitalist for any [...] no fevers or chills Adult diet Regular @[id number]@ 24HR INTAKE/OUTPUT: No intake or output data [...] recommending SNF (she came from facility at [facility] and plan is to go back to [facility] with restorative therapy. However, she is still requiring a lot of O2 (on high flow NC) and pulmonary anticipating detention weaning and recommending LTACH -check daily labs Extended Emergency Contact Information Primary Emergency Contact: STEPHYEMMA TAYLOR Mobile Relation: Daughter Preferred language: [place] Citizen Photography Instructor needed? No Secondary Emergency Contact: EDGARDO,DON Mobile Relation: Son Preferred language: [place] Citizen Photography Instructor needed? No Gee Givens MD Division of Hospitalist Medicine Inpatient Medical Services/[facility] PAGER: Epic chat [1] No past medical [...] petrolatum, , Topical (more content not included)... [facility] 08-05-2024 Nurse Note Patient informed PO steroids were changed back to IV steroids. Patient continues to refuse steroids due to feeling restless and irritable. T [facility] 08-05-2024 Nurse Note RN at bedside to administer PO Prednisone. Patient adamantly refusing to take steroids because they make her restless and irritable. Patient requesting more hydroxyzine because she already feels restless and irritable. RN informed patient of next available time for hydroxyzine to be administered. Dr. Givens notified and RN requested increase in hydroxyzine per patient request. T [facility] 08-05-2024 Note Formatting of this n ote might be different from the original. Care Management Progress Note Called daughter Emma Richards @ [phone] to discuss DC planning. Informed her that therapy is recommending SNF at [place]. Informed her that this TCC that her insurance is OON with therapy services at [facility] and that family would have to private pay. Daughter states she would like her to go back with restorative therapy at [facility]. Liaison at [facility] updated on daughter's plan to go back to [facility] with restorative therapy. Will continue to follow. Length of Stay (Days): 2 GMLOS: 3.4 T [facility] 08-05-2024 Note Formatting of this n ote might be different from the original. Care Management Progress Note Called thanh Richards @ [phone] to discuss DC planning. Informed her that therapy is recommending SNF at [place]. Informed her that this TCC that her insurance is OON with therapy services at [facility] and that family would have to private pay. Daughter states she would like her to go back with restorative therapy at [facility]CF. Liaison at [facility] updated on daughter's plan to go back to [facility] with restorative therapy. Will continue to follow. Length of Stay (Days): 2 GMLOS: 3.4 T [facility] 08-05-2024 Note Care Management Prog ress Note Called thanh Richards @ [phone] to discuss DC planning. Informed her that therapy is recommending SNF at [place]. Informed her that this TCC that her insurance is OON with therapy services at [facility] and that family would have to private pay. Daughter states she would like her to go back with restorative therapy at ECF. Liaison at [facility] updated on daughter's plan to go back to [facility] with restorative therapy. Will continue to follow. Length of Stay (Days): 2 GMLOS: 3.4 [facility] 08-05-2024 Consult note Associated Order (s): [...] Unable to assess Fluid Accumulation: Mild Extremities Medicine Tech 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 Presented to [facility] via EMS from SNF with low pulse [...] On: Kcal/kg Weight Used for Energy Requirements: [place] Weight for Energy Calculation (kg): 45 kg Total Energy Requirements (kcals/day): 4138-4277 (25-30 kcal/kg IBW) Weight Used for Protein Requirements: [place] Weight in Kg Used for Protein Requirements: [...] lb) (11/11/23) % Weight Change (Calculated): 11.7 [place] Body Weight (lbs) (Calculated): 100 lbs [place] Body Weight (Kg) (Calculated): 45 kg % [place] Body Weight (Calculated): 220 % BMI (kg/m2) [...] current diet Zuleyka Saul RDN, LDN, Contact: *[phone] T [facility] 08-05-2024 Consult note Associated Order (s): IP [...] Unable to assess Fluid Accumulation: Mild Extremities Medicine Tech 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 Presented to [facility] via EMS from SNF with low pulse [...] On: Kcal/kg Weight Used for Energy Requirements: [place] Weight for Energy Calculation (kg): 45 kg Total Energy Requirements (kcals/day): 7458-3015 (25-30 kcal/kg IBW) Weight Used for Protein Requirements: [place] Weight in Kg Used for Protein Requirements: [...] lb) (11/11/23) % Weight Change (Calculated): 11.7 [place] Body Weight (lbs) (Calculated): 100 lbs [place] Body Weight (Kg) (Calculated): 45 kg % [place] Body Weight (Calculated): 220 % BMI (kg/m2) [...] current diet Zuleyka Saul RDN, LDN, Contact: [phone] Associated Order(s): INPATIENT CONSULT TO WOUND CARE PROVIDERS Images from the original note were not included. [facility] Wound Care CONSULT Note Krish Peralta AGE: 83 y.o. GENDER: female : 1940 Subjective: HISTORY of PRESENT ILLNESS HPI Krish Peralta is a 83 y.o. female who presents for a wound consult. HPI: Ms. Peralta is a 83 y.o. female with past medical history significant for COPD. Patient [facility] from [facility] for [facility]ness of breath. Patient admitted [...] to follow Recommend to follow up at [facility] Outpatient wound care center after hospital discharge. [...] from the original note were not included. [facility] Pulmonary Medicine [address] [place] [id number] Patient - Krish Peralta - 1940 Date of Admission - 08/03/2024 4:21 PM Date of Evaluation - 08/04/2024 Room - B2-243/-Pending sale to [facility] Hospital Day - 1 Consulting - [...] - hypertension Patient is new to the [facility] pulmonary service, patient thinks she may have seen a subassembler several years ago. She was admitted to [facility] 08/03/24 from SNF for increasing shortness of [...] min Stress: No Stress Concern Present (08/04/2024) [place] [employer] - Occupational Stress Questionnaire Feeling of Stress : Only a little Social Connections: Unknown (08/04/2024) Social Connection and Isolation Panel [NHANES] Frequency of Communication with Friends and Family: Never Frequency of Social Gatherings with Friends and Family: Never Attends Jew Services: Never Active Member of Clubs or [...] Neri MD Pulmonary & Critical Care Medicine [facility] [1] Patient Active Problem List Diagnosis [...] Wound Dressing Adhesive documented in this encounter [facility] 08-05-2024 Note Hospitalist Progress Note 08/05/2024 [phone]: Please page me ([phone]) for patient care issues. [phone]: Please page [facility] Hospitalist for any issues. Subjective: Admit Date: 08/03/2024 PCP: No primary care provider on file. Room#: [facility] B Interval History: No overnight issues. Patient patient currently sitting up in chair. She says she is breathing okay but admits to being a little short of breath. Currently no chest pain. She is tell me she needs to get back to her facility? She denies any fevers or chills. No abdominal pain. No nausea or vomiting. Adult diet Regular @[id number]@ 24HR INTAKE/OUTPUT: Intake/Output Summary (Last 24 hours) [...] EMMA RICHARDS Mobile Relation: Daughter Preferred language: [place] Citizen Photography Instructor needed? No Secondary Emergency Contact: LIONEL REYNOSO Mobile Relation: Son Preferred language: [place] Citizen Photography Instructor needed? No Gee Givens MD Division of Hospitalist Medicine Inpatient Medical Services/[facility] PAGER: Epic chat [1] No past medical [...] per day traZODone, 50 mg, Oral, Nightly [facility] 08-05-2024 Plan of care note Problem: Knowledge Deficit Goal: Patient/family/caregiver demonstrates understanding of disease process, treatment plan, medications, and discharge instructions Outcome: Progressing Problem: Potential for Compromised Skin Integrity Goal: Skin Integrity is Maintained or Improved Outcome: Progressing Goal: Nutritional status is improving Outcome: Progressing Problem: Urinary Incontinence Goal: Perineal skin integrity is maintained or improved Outcome: Progressing [place] [id number] Consult note Associated Order (s): INPATIENT CONSULT TO WOUND CARE PROVIDERS Images from the original note were not included. [facility] Wound Care CONSULT Note Krish Peralta AGE: 83 y.o. GENDER: female : 1940 Subjective: HISTORY of PRESENT ILLNESS HPI Krish Peralta is a 83 y.o. female who presents for a wound consult. HPI: Ms. Peralta is a 83 y.o. female with past medical history significant for COPD. Patient presented to the emergency room from [facility] for shortness of breath. Patient admitted [...] and water, apply ET mix then leave REGULATORY AFFAIRS SPEC TID and PRN - Reposition q2hrs - Incontinent checks q2hrs - Waffle cushion while in chair Nutritional support Wound Care to follow Recommend to follow up at [facility] Outpatient wound care center after hospital discharge. [...] Malik DO at 08/09/2024 5:01 PM EDT [facility] [employer] Work Phone: 08-05-2024 Plan of care note [...] medications, and discharge instructions Outcome: Not Progressing [facility] 08-04-2024 Note Formatting of this n ote might be different from the original. Care Management Progress Note Chart reviewed. Pt admitted to for c/o SOB and COPD exacerbation. Pt on high flow O2. Pulmonary consulted and following. Pt continues on IV antibiotics and IV steroids. Met with pt earlier at bedside and she told this TCC that she is from [facility]. This TCC called daughter Emma Richards @ [phone] and she confirmed that that is where pt is from and plans for her to return at [place]. Daughter states pt sees MD at [facility] and does not have her own PCP. Also pt gets meds supplied form [facility]. PT saw and is recommending SNF at [place]. Informed daughter and she said that pt's insurance is OON with [facility] and they would have to private pay for SNF services. This TCC called [facility] liaison and she confirmed this as well. I will reach back out to daughter to discuss her options, pt may have to go back with [facility] PT/OT possibly? Will continue to follow for DC needs. Length of Stay (Days): 1 GMLOS: No GMLOS Documented [facility] 08-04-2024 Note Formatting of this n ote might be different from the original. Care Management Progress Note Chart reviewed. Pt admitted to for c/o SOB and COPD exacerbation. Pt on high flow O2. Pulmonary consulted and following. Pt continues on IV antibiotics and IV steroids. Met with pt earlier at bedside and she told this TCC that she is from [facility]. This TCC called daughter Emma Richards @ [phone] and she confirmed that that is where pt is from and plans for her to return at [place]. Daughter states pt sees MD at [facility] and does not have her own PCP. Also pt gets meds supplied form [facility]. PT saw and is recommending SNF at [place]. Informed daughter and she said that pt's insurance is OON with [facility] and they would have to private pay for SNF services. This TCC called [facility] liaison and she confirmed this as well. I will reach back out to daughter to discuss her options, pt may have to go back with [facility] PT/OT possibly? Will continue to follow for DC needs. Length of Stay (Days): 1 GMLOS: No GMLOS Documented [facility] 08-04-2024 Note Care Management Prog ress Note Chart reviewed. Pt admitted to for c/o SOB and COPD exacerbation. Pt on high flow O2. Pulmonary consulted and following. Pt continues on IV antibiotics and IV steroids. Met with pt earlier at bedside and she told this TCC that she is from [facility]. This TCC called daughter Emma Richards @ [phone] and she confirmed that that is where pt is from and plans for her to return at [place]. Daughter states pt sees MD at [facility] and does not have her own PCP. Also pt gets meds supplied form [facility]. PT saw and is recommending SNF at [place]. Informed daughter and she said that pt's insurance is OON with [facility] and they would have to private pay for SNF services. This TCC called [facility] liaison and she confirmed this as well. I will reach back out to daughter to discuss her options, pt may have to go back with [facility] PT/OT possibly? Will continue to follow for DC needs. Length of Stay (Days): 1 GMLOS: No GMLOS Documented [facility] 08-04-2024 Nurse Note Images from the original note were not included. Wound Care consulted for Pressure Injury Prevention. Pt's Emile score= 15 on 08/04 Pt's pressure points assessed. Pt sitting in chair upon arrival for visit. Pt's Heels, Back, Elbows, Occiput and ears all intact. Pt stood with max assist from landscape architecture professor for posterior assessment. Blanchable erythema/purple tissues noted to bilateral buttocks. DTI noted to right buttock, linear area of nonblanchable purple tissues, measures 1cm x 0.3cm, with surrounding blanchable erythema and purple tissues. See photo below. Wound AFFILIATE MARKETING MANAGER group consulted. Brief in place. Pt [...] Verbalized understanding. Prevention Measures in place, including: [place] sheet with pillows/wedges, Heels elevated off bed on pillows, Zinc/Moisture Barrier ointment (applied), Waffle chair cushion (ordered for pt). Skin Care precaution order set in place. Dietitian consult order placed d/t wound. PT consult in place. D/W nursing staff. Right buttock Will continue to follow pt. Please secure chat for any questions or concerns. Mago Cavazos RN [facility] 08-04-2024 Note Formatting of this n ote might be different from the original. Referral placed to return back to [facility] via [facility] per TCC request. Await review and response regarding ability to accept. TCC notified. T [facility] 08-04-2024 Note Formatting of this n ote might be different from the original. Referral placed to return back to [facility] via [facility] per TCC request. Await review and response regarding ability to accept. TCC notified. T [facility] 08-04-2024 Note Referral placed to r eturn back to [facility] via [facility] per TCC request. Await review and response regarding ability to accept. TCC notified. [facility] 08-04-2024 Note Hospitalist Progress Note 08/04/2024 [phone]: Please page me ([phone]) for patient care issues. [phone]: Please page [facility] night Hospitalist for any issues. Subjective: Admit [...] No fevers or chills. Adult diet Regular @[id number]@ 24HR INTAKE/OUTPUT: Intake/Output Summary (Last 24 hours) [...] IRVINEMMA Vigil Mobile Relation: Daughter Preferred language: [place] Citizen Photography Instructor needed? No Secondary Emergency Contact: LIONEL REYNOSO Mobile Relation: Son Preferred language: [place] Citizen Photography Instructor needed? No Gee Givens MD Division of Hospitalist Medicine Inpatient Medical Services/[facility] PAGER: Epic chat [1] No past medical history on file. [2] [3] azithromycin, 500 mg, IntraVENous, q24h cefTRIAXone, 1,000 mg, IntraVENous, q24h enoxaparin, 30 mg, SubCUTAneous, 2 times per day ipratropium-albuterol, 1 ampule, Nebulization, q4h WA sodium chloride 0.9%, 10 mL, IntraVENous, 2 times per day [facility] 08-04-2024 Consult note Associated Order (s): IP CONSULT TO PULMONOLOGY Images from the original note were not included. [facility] Pulmonary Medicine [address] [place] [address] Patient - Krish Peralta - 1940 [...] - hypertension Patient is new to the [facility] pulmonary service, patient thinks she may have seen a subassembler several years ago. She was admitted to [facility] 08/03/24 from SNF for increasing shortness of [...] min Stress: No Stress Concern Present (08/04/2024) [place] [employer] - Occupational Stress Questionnaire Feeling of Stress : Only a little Social Connections: Unknown (08/04/2024) Social Connection and Isolation Panel [NHANES] Frequency of Communication with Friends and Family: Never Frequency of Social Gatherings with Friends and Family: Never Attends Jew Services: Never Active Member of Clubs or [...] Neri MD Pulmonary & Critical Care Medicine [facility] [1] Patient Active Problem List Diagnosis [...] Duloxetine Unknown Lorazepam Oxycodone Wound Dressing Adhesive [facility] 08-03-2024 History and physical note Attending History and Physical Admit Date: 08/03/2024 PCP: No primary care provider on file. CHIEF COMPLAINT: Shortness of breath Reason for Admission: COPD exacerbation History Obtained From: ER provider HISTORY OF PRESENT ILLNESS: Krish is a 83 y.o. female with past medical history significant for COPD. Patient presented to the emergency room from fpc facility for shortness of breath. Patient has [...] Insecurity: No Food Insecurity (10/22/2023) Received from [facility] Hunger Vital Sign Worried About Running Out of Food in the Last Year: Never true Ran Out of Food in the Last Year: Never true Transportation Needs: No Transportation Needs (10/22/2023) Received from [facility] PRAPARE - Transportation Lack of Transportation (Medical): No Lack of Transportation (Non-Medical): No Physical Activity: Not on file Stress: Not on file Social Connections: Not on file Intimate Partner Violence: Not on file Housing Stability: Low Risk (10/22/2023) Received from [facility] Housing Stability Vital Sign Unable to [...] Will hold off initiating the antibiotics Consult subassembler - am labs, replace lytes prn - [...] EMMA RICHARDS Mobile Relation: Daughter Preferred language: [place] Citizen Photography Instructor needed? No Secondary Emergency Contact: LIONEL REYNOSO Mobile Relation: Son Preferred language: [place] Citizen Photography Instructor needed? 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 The patient and/or family/surrogate voluntarily agreed to participate in ACP services. Patient s cognitive capacity: Alert, Orientedx3 Code Status: [x_] [FULL CODE - Continue all advanced life support: CPR,intubation,invasive procedures] [_] [DNR-CCA - DO NOT do CPR, intubation] [_] [DNR-LACQUER MAKER - Comfort care only] [_] DNR form [...] Fransisco Pete MD Division of Hospitalist Medicine [facility] [1] No past medical history on file. [2] No past surgical history on file. [3] No family history on file. [4] Current Facility-Administered Medications: ipratropium-albuterol (Duo-Neb) 0.5-2.5 mg/3 mL nebulizer solution - Pyxis ADS Override Pull, , , , No current outpatient medications on file. [5] Allergies Allergen Reactions Aspartame Codeine Lorazepam Oxycodone Wound Dressing Adhesive [employer] Phone: 08-03-2024 Note Attending History an d Physical Admit Date: 08/03/2024 PCP: No primary care provider on file. CHIEF COMPLAINT: Shortness of breath Reason for Admission: COPD exacerbation History Obtained From: ER provider HISTORY OF PRESENT ILLNESS: Krish is a 83 y.o. female with past medical history significant for COPD. Patient presented to the emergency room from fpc facility for shortness of breath. Patient has [...] Needs: No Transportation Needs (10/22/2023) Received from [facility] PRAPARE - Transportation Lack of Transportation (Medical): No Lack of Transportation (Non-Medical): No Physical Activity: Not on file Stress: Not on file Social Connections: Not on file Intimate Partner Violence: Not on file Housing Stability: Low Risk (10/22/2023) Received from [facility] Housing Stability Vital Sign Unable to [...] 90.8 RDW 14. (more content not included)... [facility] 08-03-2024 History and physical note Attending History and Physical Admit Date: 08/03/2024 PCP: No primary care provider on file. CHIEF COMPLAINT: Shortness of breath Reason for Admission: COPD exacerbation History Obtained From: ER provider HISTORY OF PRESENT ILLNESS: Krish is a 83 y.o. female with past medical history significant for COPD. Patient presented to the emergency room from fpc facility for shortness of breath. Patient has [...] Insecurity: No Food Insecurity (10/22/2023) Received from [facility] Hunger Vital Sign Worried About Running Out of Food in the Last Year: Never true Ran Out of Food in the Last Year: Never true Transportation Needs: No Transportation Needs (10/22/2023) Received from [facility] PRAPARE - Transportation Lack of Transportation (Medical): No Lack of Transportation (Non-Medical): No Physical Activity: Not on file Stress: Not on file Social Connections: Not on file Intimate Partner Violence: Not on file Housing Stability: Low Risk (10/22/2023) Received from [facility] Housing Stability Vital Sign Unable to [...] Will hold off initiating the antibiotics Consult subassembler - am labs, replace lytes prn - [...] EMMA RICHARDS Mobile Relation: Daughter Preferred language: [place] Citizen Photography Instructor needed? No Secondary Emergency Contact: LIONEL REYNOSO Mobile Relation: Son Preferred language: [place] Citizen Photography Instructor needed? 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 The patient and/or family/surrogate voluntarily agreed to participate in ACP services. Patient s cognitive capacity: Alert, Orientedx3 Code Status: [x_] [FULL CODE - Continue all advanced life support: CPR,intubation,invasive procedures] [_] [DNR-CCA - DO NOT do CPR, intubation] [_] [DNR-LACQUER MAKER - Comfort care only] [_] DNR form [...] Fransisco Pete MD Division of Hospitalist Medicine [facility] [1] No past medical history on file. [2] No past surgical history on file. [3] No family history on file. [4] Current Facility-Administered Medications: ipratropium-albuterol (Duo-Neb) 0.5-2.5 mg/3 mL nebulizer solution - Pyxis ADS Override Pull, , , , No current outpatient medications on file. [5] Allergies Allergen Reactions Aspartame Codeine Lorazepam Oxycodone Wound Dressing Adhesive documented in this encounter [facility] 08-03-2024 Emergency department Note Patient was placed on a Venti mask at 50% FiO2. [facility] 08-03-2024 Emergency department Note Patient was placed [...] Insecurity: No Food Insecurity (10/22/2023) Received from [facility] Hunger Vital Sign Worried About Running Out of Food in the Last Year: Never true Ran Out of Food in the Last Year: Never true Transportation Needs: No Transportation Needs (10/22/2023) Received from [facility] PRAPARE - Transportation Lack of Transportation (Medical): No Lack of Transportation (Non-Medical): No Housing Stability: Low Risk (10/22/2023) Received from [facility] Housing Stability Vital Sign Unable to [...] the EMS BiPap. documented in this encounter [facility] 08-03-2024 Emergency department Note Upon arrival the [...] be left alone. ED Attending is aware. [facility] 08-03-2024 Note Upon arrival the pat ient [...] be left alone. ED Attending is aware. [facility] 08-03-2024 Emergency department Triage note Patient arrives from [facility] via EMS due to SOB and low pulse oximetry readings. Ems reports the capnography was in the 50's for CO2 level. The SNF was trying all day to get the patient to agree to come to the ED for evaluation and she refused. Patient finally agrees but refused the EMS BiPap. [facility] 08-03-2024 Physician Emergency department Note EMERGENCY DEPARTMENT [...] Insecurity: No Food Insecurity (10/22/2023) Received from [facility] Hunger Vital Sign Worried About Running Out of Food in the Last Year: Never true Ran Out of Food in the Last Year: Never true Transportation Needs: No Transportation Needs (10/22/2023) Received from [facility] PRAPARE - Transportation Lack of Transportation (Medical): No Lack of Transportation (Non-Medical): No Housing Stability: Low Risk (10/22/2023) Received from [facility] Housing Stability Vital Sign Unable to Pay for Housing in the Last Year: No Number of Places Lived in the Last Year: 1 Unstable Housing in the Last Year: No Stacia Juarez DO 08/03/24 2147 [facility] 04-19-2024 Note [facility] Medical Records Department [address] [place] [address] Discharge Summary 04/19/24 1556 MR#: [id number] Acct: [id number] Name: KRISH PERALTA Rep #: [id number] : 1940 83 From: Trip Hamilton DO PCP: Dr. Kaleb Mace Sr., DO Status:DIS IN Location: [place] [id number] Providers Date of Admission: 04/17/24 Date of [...] was seen in the emergency room at [facility] after being transferred from a half-way for worsening shortness of breath with cough. [...] (PCR) - F (more content not included)... [facility] 11-11-2023 Note HNO ID: [id number] Author: KALLI DE ANDA APRN.VENTILATOR SPECIALIST Service: ? Author Type: Nurse Practitioner Type: Progress Notes Filed: 11/11/2023 11:29 Note Text: Connected Care Unit Discharge Summary [facility] Connected Care Program [address], [address]) [place] [address] - CONNECTED CARE DISCHARGE SUMMARY Service Date: 11/11/2023 Admission Date: 10/24/2023 Discharge Date: 11/11/2023 Facility: [facility] Level of Care: Skilled SNF Attending: Dr. [...] Final GFR- 96 mL/min/1.73 m2 >60 Final AAX-GPI-AMHVUII 80 mL/min/1.73 m2 >60 Final Stage of [...] esomeprazole magnesium (NEXI (more content not included)... [facility] 11-11-2023 History of Present illness Narrative Images from the original note were not included. Connected Care Unit Discharge Summary SNF Connected Care Program [facility] [address], [address] ([address]) [place] [address] CONNECTED CARE DISCHARGE SUMMARY Service Date: 11/11/2023 Admission Date: 10/24/2023 Discharge Date: 11/11/2023 Facility: [facility] Level of Care: Skilled SNF Attending: Dr. Ricardo Barrera Connected Care Primary Care Physician: EMILY MCCARTY MD Principal Diagnosis: Acute pain of right shoulder (primary encounter diagnosis) Personal history of fall Non-traumatic rhabdomyolysis Hypertension, unspecified type Chronic obstructive pulmonary disease, unspecified copd type ([facility]) Debility Subacute Course: Clear presented facility after [...] Final GFR- 96 mL/min/1.73 m2 >60 Final TGF-MSC-VQDTAMB 80 mL/min/1.73 m2 >60 Final Stage of [...] Take 20 mg by mouth once daily. Xdbpg-6-XWS-EPA-Fish Oil (FISH OIL) 1,000 mg (120 mg-180 [...] of breath. Functional Status: Modified independent + [facility] Scheduled Future Appointments: No future appointments. Prior to discharge, staff to schedule follow up appointment for patient to see PCP within 7-10 days of discharge. I spent 36 minutes in the visit, with more than 50% of the total zjkv-rn-tumm time of the visit in counseling / coordination of care. Kalli De Anda APRN.CASSIE documented in this encounter [facility] 11-05-2023 Note HNO ID: [id number] Author: KALLI DE ANDA APRN.CASSIE Service: ? Author Type: Nurse Practitioner Type: Progress Notes Filed: 11/05/2023 14:28 Note Text: Connected Care Unit Progress Note Patient Name: Krish Peralta Patient Facility: [facility] Admit Date 10/24/2023 Level of Care: Skilled [...] not collected. Patient is being discharged to [facility] in stable condition and agrees with plan. [...] recent labs, family (more content not included)... [facility] 11-05-2023 History of Present illness Narrative Connected Care Unit Progress Note Patient Name: Krish Peralta Patient Facility: [facility] Admit Date 10/24/2023 Level of Care: Skilled [...] not collected. Patient is being discharged to [facility] in stable condition and agrees with plan. [...] Final GFR- 96 mL/min/1.73 m2 >60 Final VJK-KXV-WBYSKFT 80 mL/min/1.73 m2 >60 Final Stage of [...] 11/05/2023 This note was partially generated using [employer] voice recognition system, and there may be some incorrect words, spellings, and punctuation that were not noted in checking the note before saving. Electronically signed by Kalli De Anda APRN.VENTILATOR SPECIALIST documented in this encounter [facility] 11-03-2023 Note HNO ID: [id number] Author: KALLI DE ANDA APRN.CASSIE Service: ? Author Type: Nurse Practitioner Type: Progress Notes Filed: 11/03/2023 16:21 Note Text: Connected Care Unit Progress Note Patient Name: Krish Peralta Patient Facility: [facility] Admit Date 10/24/2023 Level of Care: Skilled [...] not collected. Patient is being discharged to [facility] in stable condition and agrees with plan. [...] current medications, most (more content not included)... [facility] 11-03-2023 History of Present illness Narrative Connected Care Unit Progress Note Patient Name: Krish Peralta Patient Facility: [facility] Admit Date 10/24/2023 Level of Care: Skilled [...] not collected. Patient is being discharged to [facility] in stable condition and agrees with plan. [...] Final GFR- 96 mL/min/1.73 m2 >60 Final KML-QDE-UWJDCAA 80 mL/min/1.73 m2 >60 Final Stage of [...] 11/03/2023 This note was partially generated using [employer] voice recognition system, and there may be some incorrect words, spellings, and punctuation that were not noted in checking the note before saving. Electronically signed by Kalli De Anda APRN.VENTILATOR SPECIALIST documented in this encounter [facility] 10-29-2023 Note HNO ID: [id number] Author: KALLI DE ANDA APRN.CASSIE Service: ? Author Type: Nurse Practitioner Type: Progress Notes Filed: 10/29/2023 15:41 Note Text: Connected Care Unit Progress Note Patient Name: Krish Peralta Patient Facility: [facility] Admit Date 10/24/2023 Level of Care: Skilled [...] not collected. Patient is being discharged to [facility] in stable condition and agrees with plan. [...] facility record. Angel (more content not included)... [facility] 10-29-2023 History of Present illness Narrative Connected Care Unit Progress Note Patient Name: Krish Peralta Patient Facility: [facility] Admit Date 10/24/2023 Level of Care: Skilled [...] not collected. Patient is being discharged to [facility] in stable condition and agrees with plan. [...] Final GFR- 83 mL/min/1.73 m2 >60 Final CGL-WTE-FXWOMLE 68 mL/min/1.73 m2 >60 Final Stage of [...] 10/29/2023 This note was partially generated using [employer] voice recognition system, and there may be some incorrect words, spellings, and punctuation that were not noted in checking the note before saving. Electronically signed by Kalli De Anda APRN.CASSIE documented in this encounter [facility] 10-27-2023 Note HNO ID: [id number] Author: KALLI DE ANDA APRN.CASSIE Service: ? Author Type: Nurse Practitioner Type: Progress Notes Filed: 10/27/2023 12:37 Note Text: Connected Care Unit Progress Note Patient Name: Krish Peralta Patient Facility: [facility] Admit Date 10/24/2023 Level of Care: Skilled [...] not collected. Patient is being discharged to [facility] in stable condition and agrees with plan. [...] records. OBJECTIVE: Labs/diagnostics: (more content not included)... [facility] 10-27-2023 History of Present illness Narrative Images from the original note were not included. Connected Care Unit Progress Note Patient Name: Krish Peralta Patient Facility: [facility] Admit Date 10/24/2023 Level of Care: Skilled [...] not collected. Patient is being discharged to [facility] in stable condition and agrees with plan. [...] which included preparing to see the patient, jlgq-um-unuk patient care, completing clinical documentation, obtaining and/or reviewing separately obtained history, performing a medically appropriate examination, counseling and educating the patient/family/caregiver, ordering medications, tests, or procedures, communicating with other HCPs (not separately reported), independently interpreting results (not separately reported), communicating results to the patient/family/caregiver, and care coordination (not separately reported). This note was partially generated using [employer] voice recognition system, and there may be some incorrect words, spellings, and punctuation that were not noted in checking the note before saving. Electronically signed by Kalli De Anda APRN.VENTILATOR SPECIALIST documented in this encounter [facility] 10-24-2023 Note [facility] 10-23-2023 Note [facility] 10-23-2023 Note [facility] 10-22-2023 Note [facility] 10-16-2023 Note HNO ID: [id number] Author: KALLI DE ANDA APRN.VENTILATOR SPECIALIST Service: ? Author Type: Nurse Practitioner Type: Progress Notes Filed: 10/17/2023 09:25 Note Text: Connected Care Unit Discharge Summary SNF Connected Care Program [facility] [address], [address] ([address]) [place] [address] - CONNECTED CARE DISCHARGE SUMMARY Service Date: 10/16/2023 Admission Date: 09/22/2023 Discharge Date: 10/16/2023 Facility: [facility] Level of Care: Skilled SNF [...] ready to go home. With assistance of [facility], and friends she is safe to [...] Take 1 capsule by mouth once daily. Xrajl-6-JSW-EPA-Fish Oil (FISH OIL) 1,000 mg (120 mg-180 [...] for wheezing/shortness of breath. Functional Status: Ambulatory [facility] Scheduled Future Appointments: No future appointments. Prior to discharge, staff to schedule follow up appointment for patient to see PCP within 7-10 days of discharge. I spent 35 minutes in the visit, with more than 50% of the total rmgu-ss-ybpt time of the visit in counseling / coordination of care. Kalli De Anda APRN.[place] 10-16-2023 History of Present illness Narrative Connected Care Unit Discharge Summary SNF Connected Care Program [facility] [address], [address]) [place] [address] CONNECTED CARE DISCHARGE SUMMARY Service Date: 10/16/2023 Admission Date: 09/22/2023 Discharge Date: 10/16/2023 Facility: [facility] Level of Care: Skilled SNF Attending: Sandra Kelly M.D. [facility] Primary Care Physician: EMILY MCCARTY MD [...] ready to go home. With assistance of [facility], and friends she is safe to [...] Take 1 capsule by mouth once daily. Cjpsb-0-QKB-EPA-Fish Oil (FISH OIL) 1,000 mg (120 mg-180 [...] for wheezing/shortness of breath. Functional Status: Ambulatory [facility] Scheduled Future Appointments: No future appointments. Prior to discharge, staff to schedule follow up appointment for patient to see PCP within 7-10 days of discharge. I spent 35 minutes in the visit, with more than 50% of the total kemh-kw-dief time of the visit in counseling / coordination of care. Kalli De Anda APRN.CASSIE documented in this encounter [facility] 10-14-2023 Note HNO ID: [id number] Author: KALLI DE ANDA APRN.CNP Service: ? Author Type: Nurse Practitioner Type: Progress Notes Filed: 10/14/2023 17:24 Note Text: Connected Care Unit Progress Note Patient Name: Krish Peralta Patient Facility: [facility] Admit Date 09/22/2023 Level of [...] labs (E03.8) Other specified hypothyroidism TSH low Dxuzetaabesnd242 mcg ordered (A49.2) Haemophilus influenzae infection Levofloxacin [...] and agree Plan: Diet, Supplements DISCHARGE DISPOSITION: [facility] update Sitting up in her chair, she is alert and oriented x 3. She reports that she wants to go home this week. She denies any shortness of breath, chest discomfort or pain. She continues to work with therapy, she feels that she is ready to go home. 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 She continues [...] mg/dL Final Vit (more content not included)... [facility] 10-14-2023 History of Present illness Narrative Connected Care Unit Progress Note Patient Name: Krish Peralta Patient Facility: [facility] Amie Admit Date 09/22/2023 Level of Care: [...] labs (E03.8) Other specified hypothyroidism TSH low Gtwxwdpdhpkkq876 mcg ordered (A49.2) Haemophilus influenzae infection Levofloxacin [...] and agree Plan: Diet, Supplements DISCHARGE DISPOSITION: [facility] update \ Sitting up in her chair, she is alert and oriented x 3. She reports that she wants to go home this week. She denies any shortness of breath, chest discomfort or pain. She continues to work with therapy, she feels that she is ready to go home. 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 She continues [...] today,10/14/2023 This note was partially generated using [employer] voice recognition system, and there may be some incorrect words, spellings, and punctuation that were not noted in checking the note before saving Electronically signed by Kalli De Anda APRN.VENTILATOR SPECIALIST documented in this encounter [facility] 10-09-2023 Note HNO ID: [id number] Author: KALLI DE ANDA APRN.CASSIE Service: ? Author Type: Nurse Practitioner Type: Progress Notes Filed: 10/09/2023 15:06 Note Text: Connected Care Unit Progress Note Patient Name: Krish Peralta Patient Facility: [facility] Admit Date 09/22/2023 Level of [...] labs (E03.8) Other specified hypothyroidism TSH low Ufyokvnscoklc748 mcg ordered (A49.2) Haemophilus influenzae infection Levofloxacin [...] and agree Plan: Diet, Supplements DISCHARGE DISPOSITION: [facility] 10/09/2023 update Krish sitting up in [...] Normal 1.74 Normal (more content not included)... [facility] 10-09-2023 History of Present illness Narrative Connected Care Unit Progress Note Patient Name: Krish Peralta Patient Facility: [facility] Admit Date 09/22/2023 Level of [...] labs (E03.8) Other specified hypothyroidism TSH low Ytuewkmcvseqb634 mcg ordered (A49.2) Haemophilus influenzae infection Levofloxacin [...] and agree Plan: Diet, Supplements DISCHARGE DISPOSITION: [facility] 10/09/2023 chetna Diaz sitting up in [...] today,10/09/2023 This note was partially generated using [employer] voice recognition system, and there may be some incorrect words, spellings, and punctuation that were not noted in checking the note before saving Electronically signed by Kalli De Anda APRN.VENTILATOR SPECIALIST documented in this encounter [facility] 10-07-2023 Note HNO ID: [id number] Author: KALLI DE ANDA APRN.CASSIE Service: ? Author Type: Nurse Practitioner Type: Progress Notes Filed: 10/07/2023 18:46 Note Text: Connected Care Unit Progress Note Patient Name: Krish Peralta Patient Facility: [facility] Admit Date 09/22/2023 Level of [...] labs (E03.8) Other specified hypothyroidism TSH low Tsiesgxanvxyo087 mcg ordered (A49.2) Haemophilus influenzae infection Levofloxacin [...] and agree Plan: Diet, Supplements DISCHARGE DISPOSITION: [facility] 10/07/2023 update Krish sitting up in [...] range of mot (more content not included)... [facility] 10-07-2023 History of Present illness Narrative Images from the original note were not included. Connected Care Unit Progress Note Patient Name: Krish Peralta Patient Facility: [facility] Admit Date 09/22/2023 Level of [...] labs (E03.8) Other specified hypothyroidism TSH low Ecrhoazfwbyih363 mcg ordered (A49.2) Haemophilus influenzae infection Levofloxacin [...] and agree Plan: Diet, Supplements DISCHARGE DISPOSITION: [facility] 10/07/2023 chetna Diaz sitting up in [...] 10/07/2023 This note was partially generated using [employer] voice recognition system, and there may be some incorrect words, spellings, and punctuation that were not noted in checking the note before saving Electronically signed by Kalli De Anda APRN.VENTILATOR SPECIALIST documented in this encounter [facility] 10-02-2023 Note HNO ID: [id number] Author: KALLI DE ANDA APRN.CASSIE Service: ? Author Type: Nurse Practitioner Type: Progress Notes Filed: 10/02/2023 17:31 Note Text: Connected Care Unit Progress Note Patient Name: Krish Peralta Patient Facility: [facility] Admit Date 09/22/2023 Level of [...] labs (E03.8) Other specified hypothyroidism TSH low Aeuykwcelguxk080 mcg ordered (A49.2) Haemophilus influenzae infection Levofloxacin [...] and agree Plan: Diet, Supplements DISCHARGE DISPOSITION: [facility] 10/02/2023 Krish sitting up in her [...] is warm a (more content not included)... [facility] 10-02-2023 History of Present illness Narrative Images from the original note were not included. Connected Care Unit Progress Note Patient Name: Krish Peralta Patient Facility: [facility] Admit Date 09/22/2023 Level of [...] labs (E03.8) Other specified hypothyroidism TSH low Oiqginjfdywye484 mcg ordered (A49.2) Haemophilus influenzae infection Levofloxacin [...] and agree Plan: Diet, Supplements DISCHARGE DISPOSITION: [facility] 10/02/2023 Krish sitting up in her [...] 10/02/2023 This note was partially generated using [employer] voice recognition system, and there may be some incorrect words, spellings, and punctuation that were not noted in checking the note before saving Electronically signed by Kalli De Anda APRN.VENTILATOR SPECIALIST documented in this encounter [facility] 09-30-2023 Note HNO ID: [id number] Author: KALLI DE ANDA APRN.CNP Service: ? Author Type: Nurse Practitioner Type: Progress Notes Filed: 09/30/2023 15:34 Note Text: Connected Care Unit Progress Note Patient Name: Krish Peralta Patient Facility: [facility] Admit Date 09/22/2023 Level of [...] labs (E03.8) Other specified hypothyroidism TSH low Rjykfuezupjsv183 mcg ordered (A49.2) Haemophilus influenzae infection Levofloxacin [...] and agree Plan: Diet, Supplements DISCHARGE DISPOSITION: [facility] 09/30/2023 update Krish is sitting up [...] Pupils: Pupils are (more content not included)... [facility] 09-30-2023 History of Present illness Narrative Images from the original note were not included. Connected Care Unit Progress Note Patient Name: Krish Peralta Patient Facility: [facility] Admit Date 09/22/2023 Level of [...] labs (E03.8) Other specified hypothyroidism TSH low Oqyqavnkanokf064 mcg ordered (A49.2) Haemophilus influenzae infection Levofloxacin [...] and agree Plan: Diet, Supplements DISCHARGE DISPOSITION: [facility] 09/30/2023 update Krish is sitting up [...] 09/30/2023 This note was partially generated using [employer] voice recognition system, and there may be some incorrect words, spellings, and punctuation that were not noted in checking the note before saving Electronically signed by Kalli De Anda APRN.VENTILATOR SPECIALIST documented in this encounter [facility] 09-26-2023 Note HNO ID: [id number] Author: KALLI DE ANDA APRN.CASSIE Service: ? Author Type: Nurse Practitioner Type: Progress Notes Filed: 09/26/2023 23:15 Note Text: Connected Care Unit Progress Note Patient Name: Krish Peralta Patient Facility: [facility] Admit Date 09/22/2023 Level of [...] and agree Plan: Diet, Supplements DISCHARGE DISPOSITION: [facility] 09/26/2023 chetna Diaz sitting up in [...] present. Mental S (more content not included)... [facility] 09-26-2023 History of Present illness Narrative Images from the original note were not included. Connected Care Unit Progress Note Patient Name: Krish Peralta Patient Facility: [facility] Admit Date 09/22/2023 Level of [...] and agree Plan: Diet, Supplements DISCHARGE DISPOSITION: [facility] 09/26/2023 update Krish sitting up in [...] 09/26/2023 This note was partially generated using [employer] voice recognition system, and there may be some incorrect words, spellings, and punctuation that were not noted in checking the note before saving Electronically signed by Kalli De Anda APRN.VENTILATOR SPECIALIST documented in this encounter [facility] 09-23-2023 Note HNO ID: [id number] Author: KALLI DE ANDA APRN.CASSIE Service: ? Author Type: Nurse Practitioner Type: Progress Notes Filed: 09/23/2023 15:28 Note Text: Connected Care Unit Progress Note Patient Name: Krish Peralta Patient Facility: [facility] Admit Date 09/22/2023 Level of [...] and agree Plan: Diet, Supplements DISCHARGE DISPOSITION: [facility] 09/23/2023 update Krish is sitting up in wheelchair she is alert and oriented x 3. She denies any shortness of breath, chest discomfort or pain. She does have complaints of generalized pain, she does take tramadol at home. Did speak with [place] [facility] to get dosage. This was reordered. [...] present. Cervical back: (more content not included)... [facility] 09-23-2023 History of Present illness Narrative Images from the original note were not included. Connected Care Unit Progress Note Patient Name: Krish Peralta Patient Facility: [facility] Admit Date 09/22/2023 Level of [...] and agree Plan: Diet, Supplements DISCHARGE DISPOSITION: [facility] 09/23/2023 chetna Diaz is sitting up in wheelchair she is alert and oriented x 3. She denies any shortness of breath, chest discomfort or pain. She does have complaints of generalized pain, she does take tramadol at home. Did speak with [place] pharmacy to get dosage. This was reordered. [...] which included preparing to see the patient, nlng-qy-jdbp patient care, completing clinical documentation, obtaining and/or reviewing separately obtained history, performing a medically appropriate examination, counseling and educating the patient/family/caregiver, ordering medications, tests, or procedures, communicating with other HCPs (not separately reported), independently interpreting results (not separately reported), communicating results to the patient/family/caregiver, and care coordination (not separately reported). This note was partially generated using [employer] voice recognition system, and there may be some incorrect words, spellings, and punctuation that were not noted in checking the note before saving. This note was partially generated using [employer] voice recognition system, and there may be some incorrect words, spellings, and punctuation that were not noted in checking the note before saving. Electronically signed by Kalli De Anda APRN.CASSIE documented in this encounter [facility] 09-23-2023 Note HNO ID: [id number] Author: KAREN NOLEN, RN Service: Nursing Author Type: Registered Nurse Type: Nursing Progress Note Filed: 09/23/2023 01:31 Note Text: Report called to nurse at [facility]. All questions answered. [facility] 09-23-2023 Note HNO ID: [id number] Author: KAREN NOLEN RN Service: Nursing Author Type: Registered Nurse Type: Nursing Progress Note Filed: 09/23/2023 01:21 Note Text: Assisted patient to ambulette w/c. PIV removed. All belonging sent with patient. [facility] 09-22-2023 Note HNO ID: [id number] Author: HILDA HALE RN Service: Nursing Author Type: Registered Nurse Type: Nursing Progress Note Filed: 09/22/2023 19:01 Note Text: Report called to Angie at [facility] 09-21-2023 Note [facility] [...] (one day only), Blood, Once, Preferred Lab: [facility], Stop date 06/20/23 5:00:00 EDT(Complete) Other status: CBC,06/20/23 5:00:00 EDT, Next AM Draw (one day only), Blood, Once, Preferred Lab: [facility], Stop date 06/20/23 5:00:00 EDT(Complete) Ordered: Discharge,06/20/23 13:17:00 EDT, Dis[facility] to: [facility] Ordered: Konsyl,Dose = 1 pkt, Oral, [...] obesity and medical noncompliance. Patient presented to [facility] on 06/18/2023 with worsening shortness [...] The patient is stable for discharge to [facility] today. Updated daughter Emma over phone. [...] Why: Follow-up for sleep study Where: [address] [place] [address]- [phone] Business (1) Follow Up with AUDRA CALL When Within 1-2 days Where: [address] [place] [address] [address] [facility] [place] [address]- Business (1) Follow Up with Patient is discharged to [facility]. Please call report to [phone]. When Within 1-2 days Follow Up with EMILY MCCARTY [facility] When Within 1-2 days Why: Please call the office to schedule a follow-up appointment. Where: [address] [facility] [place] [address]- Business (1) Follow Up Appointments Transfer of [...] by BAYLEE STONE on 06/20/2023 01:20 PM [facility] 06-20-2023 Note Discharge Instructions Thank you for allowing [facility] to assist you with your healthcare needs. The following is important discharge information regarding your hospital visit. Your Care Team EMILY MCCARTY MD Your Diagnosis Bradycardia COPD exacerbation Hypoxia Shortness of breath What to do next Scheduled Follow-Up Appointments Appointment Type When With Where Contact InformationEcho - Echocardiogram Adult 07/14/2023 10:00 AM EDT [facility] 07/30/2023 10:40 AM EDT MARNI SAMSON [facility] Medicare 09/01/2023 02:15 PM EDT EMILY MCCARTY MD [facility] Follow Up Appointments Follow Up with LINDA TEE When Within 1-2 days Why: Follow-up for sleep study Where: [address] [place] [address]- [phone] Business (1) Follow Up with AUDRA CALL When Within 1-2 days Where: [address] [facility] [place] [address]- Business (1) Follow Up with Patient is discharged to [facility] skilled LOC. Please call report to [phone]. When Within 1-2 days Follow Up with EMILY MCCARTY [facility] When Within 1-2 days Why: Please call the office to schedule a follow-up appointment. Where: [address] [facility] [place] [address]- Business (1) The Following Activity and Diet [...] to receive it can visit one of [facility] vaccine clinics. There are many vaccine clinic locations within the [facility]. For locations and available times, please visit [email or web address].mii o.gov/. It is important to note that some COVID mobile vaccine clinics are held outdoors and may be canceled in rainy or stormy conditions. To learn more about pediatric vaccinations (ages 5-11), we invite you to visit the [employer] webpage. [email or web address]://[email or web address].org/pag [email or web address]-Sqgys-Uradzpdbcah-[email or web address] gh-Vrrtw-Fzyvrhyer.html To learn more about the COVID-19 vaccine, we invite you to visit the CDC website for a list of frequently asked questions.https://www.cdc.gov/luz navirus/2019-ncov/vaccines/faq.htm l [employer] Patient Portal Access Instructions: Stay connected with your healthcare team and access your personal medical information anytime with the [employer] Patient Portal. Please follow the directions below to create your [employer] account: 1.Access the email account you provided upon registration to the hospital/physician office.2.Look for an invitation email from [facility].3.Open the email and access the invitation link: Accept Invitation to [employer].4.Fill in the required carpenter to create your account. To access your account, visit [email or web address]. Click the blue button labeled Access Patient [...] you will allow to register on the [facility] for access to your information. You can also access the [facility] on the [facility] vidhya. Simply click on Patient Portal and then log into your account. If you would like to receive a full copy of your medical records, please contact the [facility] Medical Records Department by calling [phone], Friday through Friday between 8 a.m. and [...] Call your local pharmacy or go to [email or web address]/[email or web address] to find one close to you.3.Make use of household items: Use cat litter or old coffee grounds to dispose medications if other options are not available. Mix your drugs with these household products, seal them in an airtight container and throw it into the garbage. Call [facility]: [phone] to be sure your drugs can be [...] aware that I should contact my doctor. 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 Signature: Date/Time: Relationship to Patient: ___ Witness Name/Signature: Date/Time: [facility] 06-20-2023 Discharge summary Date of [...] (one day only), Blood, Once, Preferred Lab: [facility], Stop date 06/20/23 5:00:00 EDT(Complete) Other status: CBC,06/20/23 5:00:00 EDT, Next AM Draw (one day only), Blood, Once, Preferred Lab: [facility], Stop date 06/20/23 5:00:00 EDT(Complete) Ordered: Discharge,06/20/23 13:17:00 EDT, Discharged to: [facility] Ordered: Konsyl,Dose = 1 pkt, Oral, [...] obesity and medical noncompliance. Patient presented to [facility] on 06/18/2023 with worsening shortness [...] patient is stable for discharge to [facility]. Updated daughter Emma over phone. Case [...] Why: Follow-up for sleep study Where: [address] [place] [address]- [phone] Business (1) Follow Up with AU[facility] CALL When Within 1-2 days Where: [address] [place] [address] [address] [facility] [place] [address]- Business (1) Follow Up with Patient is discharged to [facility] LOC. Please call report to [phone]. When Within 1-2 days Follow Up with EMILY MCCARTY [facility] When Within 1-2 days Why: Please call the office to schedule a follow-up appointment. Where: [address] [facility] [place] [address]- Business (1) Follow Up Appointments Transfer of [...] by BAYLEE STONE on 06/20/2023 01:20 PM [facility] 06-20-2023 Note Exam Date Time Procedure Performing Provider Status 06/20/23 12:37 PM Echocardiogram, Adult - CV Auth (Verified) [facility] 04-12-2024 Note Date of Service 06/20/23 Chief Complaint knee pain, generalized weakness Subjective 82-year-old female with past medical history of hypertension, hypothyroidism, GERD, COPD, chronic back pain, chronic diastolic heart failure, recurrent UTIs, osteoporosis, depression, morbid obesity and medical noncompliance. Patient presented to [facility] on 06/18/2023 with worsening shortness [...] tablet 25 mg 1 tab(s), Oral, BID kqnzj-6-ejhi ethyl esters 1000 mg capsule 1,000 mg [...] SNF. Patient now agreeable, referral sent to [facility]. Lovenox for DVT prophylaxis Anticipate discharge when SNF bed available/Echo completed Ok to transfer to Plan discussed with patient. Updated daughter Emma over phone Case d/w Dr. Gonzalez Digitally Signed by BAYLEE STONE on 06/20/2023 12:15 PM [id number] Note Date of Service 06/19/23 Chief Complaint respiratory failure, HF exacerbation Subjective 82-year-old female with past medical history of hypertension, hypothyroidism, GERD, COPD, chronic back pain, chronic diastolic heart failure, recurrent UTIs, osteoporosis, depression, morbid obesity and medical noncompliance. Patient presented to [facility] on 06/18/2023 with worsening shortness [...] tablet 25 mg 1 tab(s), Oral, BID jgmtv-5-iqnl ethyl esters 1000 mg capsule 1,000 mg [...] BAYLEE STONE APRN-CASSIE on 06/19/2023 01:22 PM [id number] Cardiology Consult note Date of Service 06/19/2023 [...] cardiology standpoint. Hold off beta-chelita (labetolol). 30-day traffic monitor specialist on discharge. Thank you for the consult [...] LAURA HENRIQUEZ MD on 06/19/2023 02:57 PM [facility] [id number] Note Date of Service 06/19/23 Chief Complaint respiratory failure, HF exacerbation Subjective 82-year-old female with past medical history of hypertension, hypothyroidism, GERD, COPD, chronic back pain, chronic diastolic heart failure, recurrent UTIs, osteoporosis, depression, morbid obesity and medical noncompliance. Patient presented to [facility] on 06/18/2023 with worsening shortness [...] tablet 25 mg 1 tab(s), Oral, BID jafts-7-xetn ethyl esters 1000 mg capsule 1,000 mg [...] by BAYLEE STONE on 06/19/2023 01:22 PM [facility] [id number] Note Date of Service 06/19/23 Chief Complaint respiratory failure, HF exacerbation Subjective 82-year-old female with past medical history of hypertension, hypothyroidism, GERD, COPD, chronic back pain, chronic diastolic heart failure, recurrent UTIs, osteoporosis, depression, morbid obesity and medical noncompliance. Patient presented to [facility] on 06/18/2023 with worsening shortness [...] tablet 25 mg 1 tab(s), Oral, BID xjgsp-7-ydri ethyl esters 1000 mg capsule 1,000 mg [...] BAYLEE STONE APRN-CASSIE on 06/19/2023 01:22 PM [id number] Cardiology Consult note Date of Service 06/19/2023 [...] cardiology standpoint. Hold off beta-chelita (labetolol). 30-day traffic monitor specialist on discharge. Thank you for the consult [...] LAURA HENRIQUEZ MD on 06/19/2023 02:57 PM [id number] Respiratory therapy Hospital Progress note Respiratory Therapy Evaluation Entered On: 06/19/2023 8:21 EDT Performed On: 06/19/2023 8:19 EDT by Bill, Sterling L FIELD CROP I FARMWORKER Respiratory Therapy Evaluation Pulmonary Status : Pulmonary [...] BID Tx use at home Sterling Khan FIELD CROP I FARMWORKER - 06/19/2023 8:19 EDT Digitally Signed by Sterling Khan FIELD CROP I FARMWORKER on 06/19/2023 08:19 AM [facility] [id number] History and physical note Date of Service [...] obesity, osteoporosis, chronic depression. She presented to [facility] on 06/18/2023 with complaints of weakness, shortness of breath andconcerns of low heart rate as low as 48 at home. To be noted, patient has been in communication with her primary care doctor and [facility] since 06/09/2023 with complaints of shortness of [...] communication with her primary care doctor and maltster since 06/09/2023 with complaints of shortness of [...] by KENDALL NOLAN on 06/18/2023 01:54 PM [id number] Evaluation + Plan noteExtracted from: Title:History and Physical Author:ASPEN NOLAN Date:06/18/23 1. Shortness of breath 2. Hypoxia -Patient has been in communication with her primary care doctor and maltster since 06/09/2023 with complaints of shortness of [...] 18, 2023 19:44:17 EDT Collaborative Care Team [facility] Medicine This is a shared/split visit Patient was seen and examined during hospitalization Labs imaging and documentation were reviewed Care discussed during a.m. rounds treatment plan was developed independently and implemented with TAPEMAN assistance Agree with assessment and plan 82-year-old [...] Appointments Appointment Date:07/14/2023 10:00:00 AM Scheduled Provider: Location:[facility] Appointment Type:Echo - Echocardiogram Adult Appointment Date:07/30/2023 10:40:00 AM Scheduled Provider:MARNI SAMSON TAPEMAN-VENTILATOR SPECIALIST Location:UROLOGY Appointment Type:URO OV Appointment Date:09/01/2023 02:15:00 [...] obesity, osteoporosis, chronic depression. She presented to [facility] on 06/18/2023 with complaints of weakness, shortness of breath andconcerns of low heart rate as low as 48 at home. To be noted, patient has been in communication with her primary care doctor and maltster since 06/09/2023 with complaints of shortness of [...] communication with her primary care doctor and maltster since 06/09/2023 with complaints of shortness of [...] by KENDALL NOLAN on 06/18/2023 01:54 PM [facility] [id number] NoteSINUS OR ECTOPIC ATRIAL RHYTHM NONSPECIFIC IVCD WITH LAD LEFT VENTRICULAR HYPERTROPHY ANTERIOR Q WAVES, POSSIBLY DUE TO LVH Electronic Signature: MD SCOTT BLANCHARD MD 06/18/2023 09:35:12[facility] 04-10-2024 Note ORIGINAL EXAMINATION: ONE [...] Date: 06/18/2023 8:22:34 AM Ordering Provider: JACKSON [facility]04-10-2024 Hospital Discharge instructions Follow Up Care 06/18/2023 06:14:47 With:LINDA TEE Address: [address] [place] [address] [address] [place] [address] [phone] Business (1) When:1-2 days Comments:Follow-up for sleep study With:AUDRA CALL Address: [address] [place] [address] [address] [facility] [place] [address]- Business (1) When:1-2 days With:Patient is discharged to [facility]. Please call report to [phone]. Address:Unknown When:1-2 days With:EMILY MCCARTY, [facility] Address: [address] [place] [address] [address] [facility] [place] [address]- Business (1) When:1-2 days Comments:Please call the office to schedule a follow-up appointment. [facility] 12-10-2022 Note Discharge Instructions Thank you for allowing [facility] to assist you with your healthcare needs. [...] Appointment Type When With Where Contact InformationNS AFFILIATE MARKETING MANAGER 02/20/2022 11:00 AM EST AH Neurosurgery [address] [place] [address] OV Follow Up 04/25/2022 01:00 PM EST EMILY MCCARTY MD [facility] Follow Up Appointments Follow Up with EMILY MCCARTY MD, [facility] When Within 5 to 7 days Why: Please call the office to schedule a follow up appointment Where: [address] [facility] [place] [address]- Follow Up with [facility], When Within 1-2 days Why: A referral [...] 12 hours Duration: 6 Days Pickup at [facility]73 New oseltamivir (Tamiflu 75 mg oral capsule) 1 cap by mouth Two (2) times a day Duration: 1 Days Pickup at [facility]11 Changed predniSONE (prednisone 20mg tab (TAPER)) Taper 60-40-20 mg x 3 days each dose by mouth Every day Duration: 9 Days Pickup at [facility] #74028 Unchanged acetaminophen (Tylenol Extra Strength 500 mg [...] day Pickup at [facility] #29829 Unchanged aspirin (aspirin 325 mg oral delayed [...] Rash Unchanged DME (Prescription MISCellaneous) See instructions [facility]--aplly once daily to wound. Unchanged DULoxetine (DULoxetine [...] Information [facility][id number]: [address] [place], [place] [phone] What How Much When Comments Stop Taking [...] or as directed by your healthcare provider [phone] [employer]. [address] [place] [address]. All rights reserved. This information is not intended as a substitute for professional medical care. Always follow yourhealthcare professional's instructions. Additional Information VACCINATE! IT SAVES LIVES! Members of the community who have not yet received the COVID-19 vaccine and would like to receive it can visit one of [facility] vaccine clinics. There are many vaccine clinic locations within the [facility]. For locations and available times, please visit [email or web address] It is important to note that some COVID mobile vaccine clinics are held outdoors and may be canceled in rainy or stormy conditions. To learn more about pediatric vaccinations (ages 5-11), we invite you to visit the [facility] webpage. https://www.[facility].org/pages/4555-Gsesd-Wrlocafenka-Ebwsfxnvza-Waifx-Isp stions.htmlTo learn more about the COVID-19 vaccine, we invite you to visit the [facility] website for a list of frequently asked questions. [email or web address] _Asked-Questions.pdf [facility] Patient Portal Access Instructions: Stay connected with your healthcare team and access your personal medical information anytime with the [facility] Patient Portal.If you would like a full copy of your medical records, please contact the [facility] Medical Records Department, Friday through Friday between 8a.m. and 4:30p.m. Please follow the directions below to access the portal: 1.Access the email account you provided upon registration to the hospital.2.Look for an invitation email from [facility].3.Open the email and access the invitation link: Accept Invitation to [facility]4.Fill in the required carpenter to create your account. Sign into [email or web address] with your username and password that you [...] you will allow to register on the [employer] Patient Portal for access to your information. You can also access the [employer] Patient Portal on the [employer] vidhya. Simply click on Health Records under Soc[employer]. and then click on the [employer] logo. HOW TO SAFELY DISPOSE OF PRESCRIPTION [...] Call your local pharmacy or go to http://Cortica/3C0To6m to find one close to you.3.Make use of household items: Use cat litter or old coffee grounds to dispose medications if other options arenot available. Mix your drugs with these household products, seal them in an airtight container andthrow it into the garbage. Call [facility]: [phone] to be sure your drugs can be [...] aware that I should contact my doctor. 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 Signature: Date/Time: Relationship to Patient: Witness Name/Signature: Date/Time: [facility] [id number] Discharge summary Date of Service February 16, [...] Follow Up with EMILY MCCARTY MD, [facility] When Within 5 to 7 days Why: Please call the office to schedule a follow up appointment Where: [address] [facility] [place] [address]- Follow Up with [facility], When Within [...] NIKOLAY ARANDA MD on 02/16/2022 06:34 PM [facility] [id number] Respiratory therapy Hospital Progress note Respiratory Therapy [...] Felicitas Lau LPN on 02/16/2022 09:26 AM [facility] [id number] Note Chief Complaint Transition plan Transitional Action [...] drive. She does have a referral to [facility] for an aide, noted [...] Rate19(FEB 16 08:45)19(FEB 15 12:20)20(FEB 15 10:47) APK000(FEB 16 08:45)113(FEB 15 15:04)138(FEB 15 21:40) DBP70(FEB [...] 30 gram(s), 3 Refill(s). DME: See Instructions, [facility]--aplly once daily to wound., 1 EA, 1 [...] by VERA HAGER on 02/16/2022 06:33 PM [facility] [id number] Note Date of Service February 15, 2022 [...] cap(s), Oral, qDay fluticasone nasal 0.05 mg/inh [place] 50 mcg 1 spray(s), Nostril, each, BID [...] NIKOLAY ARANDA MD on 02/15/2022 05:47 PM [facility] [id number] Note Date of Service February 14, 2022 [...] cap(s), Oral, qDay fluticasone nasal 0.05 mg/inh [place] 50 mcg 1 spray(s), Nostril, each, BID [...] NIKOLAY ARANDA MD on 02/14/2022 07:48 PM [facility] [id number] Note Date of Service February 13, 2022 [...] cap(s), Oral, qDay fluticasone nasal 0.05 mg/inh [place] 50 mcg 1 spray(s), Nostril, each, BID [...] NIKOLAY ARANDA MD on 02/13/2022 07:42 PM [facility] [id number] History and physical note Date of Service [...] allergic rhinitis, GERD, urinary incontinence presented to [facility] on February 12, 2022 with a [...] potassium replacement and Tamiflu 75 mg at [facility] prior to my evaluation. Patient was accepted [...] Sapp LPN (01/23/22 15:34:00) Lab Performing Location: [facility] (01/23/22 15:34:00) Perf Loc - POCT: [...] Ketones Urine Dipstick: Negative (01/23/22 15:34:00) Specific Isabella Urine Dipstick: 1.010 (01/23/22 15:34:00) Blood Urine [...] rhythm...normal P axis, V-rate 50- 99 Short WA interval...WA <110mS Nonspecific IVCD with LAD...QRSd >120mS & [...] Point of contact influenza A positive at [facility] Patient was wheezing on my evaluation [...] every 8 hours Note was written using [employer] chip bin conveyor tender software. Some of the meaning of the words and sentences might have changed during chip bin conveyor tender, if there was ever some confusion about [...] LORIN RODRIGUEZ MD on 02/12/2022 11:29 PM [facility] [id number] Note Chief Complaint Transition Plan. Transitional Action [...] 23:16:00 EST, Full Code, Constant Order Samantha Feliz RN, am scribing for Vera Hager NP, in the presence of Vera Hager NP, personally performed the services described in this documentation, as described by Burke MCKINLEY in my presence and it is both accurate and complete. This document transcribed using voice recognition software may contain typographical errors. Digitally Signed by VERA HAGER on 02/13/2022 12:51 PM [facility] [id number] History and physical note Date of Service [...] allergic rhinitis, GERD, urinary incontinence presented to [facility] on February 12, 2022 with a chief [...] potassium replacement and Tamiflu 75 mg at [facility] prior to my evaluation. Patient was accepted [...] Sapp LPN (01/23/22 15:34:00) Lab Performing Location: [facility] (01/23/22 15:34:00) Perf Loc - POCT: [...] 15:34:00) Ketones Urine Dipstick: Negative (01/23/22:34:00) Specific Isabella Urine Dipstick: 1.010 (01/23/22 15:34:00) Blood Urine [...] rhythm...normal P axis, V-rate 50- 99 Short WA interval...WA <110mS Nonspecific IVCD with LAD...QRSd >120mS & [...] Point of contact influenza A positive at [facility] Patient was wheezing on my evaluation [...] every 8 hours Note was written using [employer] chip bin conveyor tender software. Some of the meaning of the words and sentences might have changed during chip bin conveyor tender, if there was ever some confusion about [...] LORIN RODRIGUEZ MD on 02/12/2022 11:29 PM [facility] [id number] SARS-CoV-2 (COVID-19) RdRp gene LYDIA+probe Ql (Resp) Negative (02/12/22 3:38 PM)AM [facility] [id number] Hospital Discharge instructions Patient Education 02/12/2022 13:37:15 [...] or as directed by your healthcare provider [phone] [employer]. [address] [place] [address]. All rights reserved. This information is not intended as a substitute for professional medical care. Always follow yourhealthcare professional's instructions. Follow Up Care 02/12/2022 11:08:19 With:EMILY MCCARTY MD, [facility] Address: [address] [place] [address] [address] [facility] [place] [address]- When:5 to 7 days Comments:Please call the office to schedule a follow up appointment With:Say Nolasco, Address:Unknown When:1-2 days Comments:A referral was made for aide services for you. Call them with any questions With:Go to emergency room if symptoms worsen Address:Unknown When:2-4 days [facility] 12-06-2022 Evaluation + Plan noteExtracted from: Title:History and Physical Author:LORNI RODRIGUEZ MD Date:02/12/22 Acute respiratory failure wi th hypoxia: Oxygen saturation of 88% room air Continue oxygen via nasal cannula Likely due to influenza A infection triggering bronchoconstriction Influenza A infection: Patient presented with hypoxia, shortness of breath Point of contact influenza A positive at [facility] Patient was wheezing on my evaluation likely [...] every 8 hours Note was written using [employer] chip bin conveyor tender software. Some of the meaning of the words and sentences might have changed during chip bin conveyor tender, if there was ever some confusion about the meaning of some sentences, please do not hesitate to contact me. Addendum by LORIN RODRIGUEZ MD on February 13, 2022 05:24:23 EST Hypomagnesemia: Magnesium of 1.4 on admission Replacing Hypophosphatemia: Phosphorus of 1.7 on admission Replacing Future Appointments Appointment Date:02/20/2022 11:00:00 AM Scheduled Provider: Location:[facility] Appointment Type:NS AFFILIATE MARKETING MANAGER Appointment Date:04/25/2022 01:00:00 PM Scheduled Provider:EMILY MCCARTY MD Location:[facility] Appointment Type:PC OV Follow Up Future Scheduled Tests Laboratory* Urine Culture 01/23/22 * Complete Metabolic Panel 01/22/22 Radiology* CT Coronary Calcium Score w/o Contrast 11/15/21 [facility] 12-06-2022 Emergency department Discharge summary Discharge Instructions Thank you for allowing [facility] to assist you with your healthcare needs. [...] Follow Up with EMILY MCCARTY MD, [facility] When Within 2-4 days Where: [address] [place] [address]- Allergies Ambien Aspartame (non-codified) Ativan Nembutal Percocet [...] Rash Unchanged DME (Prescription MISCellaneous) See instructions [facility]--aplly once daily to wound. Unchanged doxycycline (doxycycline [...] or as directed by your healthcare provider [phone] [employer]. [address] [place] [address], [place] [address]. All rights reserved. This information is not intended as a substitute for professional medical care. Always follow yourhealthcare professional's instructions. Additional Information VACCINATE! IT SAVES LIVES! Members of the community who have not yet received the COVID-19 vaccine and would like to receive it can visit one of [facility] vaccine clinics. There are many vaccine clinic locations within the [facility]. For locations and available times, please visit [email or web address]. It is important to note that some COVID mobile vaccine clinics are held outdoors and may be canceled in rainy orstormy conditions. To learn more about pediatric vaccinations (ages 5-11), we invite you to visit the [facility] webpage. https://www.[facility].org/pages/6099-Pcpla-Hltrhnrwptq-Jtudqwwyid-Xotjx-Atb stions.htmlTo learn more about the COVID-19 vaccine, we invite you to visit the [facility] website for a list of frequently asked questions. [email or web address] _Asked-Questions.pdf [facility] Patient [facility] Access Instructions: Stay connected with your healthcare team and access your personal medical information anytime with the [facility] Patient Portal. If you would like a full copy of your medical records please contact the [facility] Medical Records Department Friday through Friday between 8a.m. and 4:30p.m. Please follow the directions below to access the portal: 1.Access the email account you provided upon registration to the hospital.2.Look for an invitation email from [facility].3.Open the email and access the invitation link: Accept Invitation to [facility]4.Fill in the required carpenter to create your account. Sign into [email or web address] with your username and password that you [...] you will allow to register on the [employer] Patient Portal for access to your information. You can also access the [employer] Patient Portal on the [employer] vidhya. Simply click on Health Records under [employer]. and then click on the [employer] logo. HOW TO SAFELY DISPOSE OF PRESCRIPTION [...] Call your local pharmacy or go to http://Idle Free Systems.Dipity/7J0Mf8z to find one close to you.3.Make use of household items: Use cat litter or old coffee grounds to dispose medications if other options arenot available. Mix your drugs with these household products, seal them in an airtight container andthrow it into the garbage. Call [facility]: [phone] to be sure your drugs can be [...] aware that I should contact my doctor. 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 Signature: Date/Time: Relationship to Patient: Witness Name/Signature: Date/Time: [facility] [id number] Note ORIGINAL HISTORY: Short of breath, cough [...] 02/12/2022 11:58:31 AM Ordering Provider: MARLEE WEIR [facility] [id number] Note ORIGINAL HISTORY: Short of breath, cough [...] Sign Date: 02/12/2022 11:58:31 AM Ordering Provider: [facility]-22-20[facility] [place] [facility] Future Appointments Appointment Date:02/08/2021 01:30:00 PM Scheduled Provider:EMILY MCCARTY MD Location:[facility] Appointment Type:PC OV Follow Up Future Scheduled Tests Laboratory* Basic Metabolic Panel 07/07/20 * Complete Metabolic Panel 01/22/22 [facility] Evaluation + Plan note Future Appointments Appointment Date:04/25/2022 01:00:00 PM Scheduled Provider[facility] Type:[facility] OV Follow Up Future Scheduled Tests Laboratory* Urine Culture 01/23/22 * Complete Metabolic Panel 01/22/22 Radiology* XR Spine Lumbar AP/LAT/FLEX/EXT 04/08/22 * CT Coronary Calcium Score w/o Contrast 11/15/21 [facility] Evaluwwoqv note* Diagnosis Urinary tract infection with hematuria, site unspecified- Primary Hypertension, unspecified type Other specified hypothyroidism Acute hypoxic respiratory failure (HCC) Debility Debility, unspecified OAB (overactive bladder) Hypertonicity of bladder [facility]* Diagnosis Urinary tract infection with hematuria, site unspecified- Primary Hypertension, unspecified type Other specified hypothyroidism Acute hypoxic respiratory failure (HCC) Debility Debility, unspecified [facility]* Diagnosis Urinary tract infection with hematuria, site unspecified- Primary Haemophilus influenzae infection Hemophilus influenzae (H. influenzae) infection in conditions classified elsewhere and of unspecified site Hypertension, unspecified type Other specified hypothyroidism Acute hypoxic respiratory failure (HCC) Debility Debility, unspecified documented in this encounter [facility] note* Diagnosis Urinary tract infection with hematuria, site unspecified- Primary Haemophilus influenzae infection Hemophilus influenzae (H. influenzae) infection in conditions classified elsewhere and of unspecified site Hypertension, unspecified type Other specified hypothyroidism Acute hypoxic respiratory failure (HCC) Debility Debility, unspecified OAB (overactive bladder) Hypertonicity of bladder documented in this encounter [facility] note* Diagnosis Urinary tract infection with hematuria, site unspecified- Primary Haemophilus influenzae infection Hemophilus influenzae (H. influenzae) infection in conditions classified elsewhere and of unspecified site Hypertension, unspecified type Other specified hypothyroidism Acute hypoxic respiratory failure (HCC) Debility Debility, unspecified documented in this encounter [facility] note* Diagnosis Urinary tract infection with hematuria, site unspecified- Primary Haemophilus influenzae infection Hemophilus influenzae (H. influenzae) infection in conditions classified elsewhere and of unspecified site Hypertension, unspecified type Other specified hypothyroidism Acute hypoxic respiratory failure (HCC) Hypokalemia Hypopotassemia Debility Debility, unspecified documented in this encounter [facility] note* Diagnosis Non-traumatic rhabdomyolysis- Primary Acute pain of right shoulder Personal history of fall Hypertension, unspecified type Chronic obstructive pulmonary disease, unspecified COPD type (HCC) Debility Debility, unspecified Abnormal finding on urinalysis Other nonspecific finding on examination of urine Other specified hypothyroidism documented in this encounter [facility] note* Diagnosis Acute pain of right shoulder- Primary Personal history of fall Non-traumatic rhabdomyolysis Hypertension, unspecified type Chronic obstructive pulmonary disease, unspecified COPD type (HCC) Debility Debility, unspecified Dysuria documented in this encounter [facility] note* Diagnosis Acute pain of right shoulder- Primary Personal history of fall Non-traumatic rhabdomyolysis Hypertension, unspecified type Chronic obstructive pulmonary disease, unspecified COPD type (HCC) Debility Debility, unspecified documented in this encounter [facility] note* Diagnosis Acute pain of right shoulder- Primary Personal history of fall Non-traumatic rhabdomyolysis Hypertension, unspecified type Chronic obstructive pulmonary disease, unspecified COPD type (HCC) Debility Debility, unspecified documented in this encounter [facility] note* Diagnosis COPD exacerbation (HCC)- Primary Obstructive chronic bronchitis with exacerbation COPD exacerbation (HCC) Obstructive chronic bronchitis with exacerbation Acute on chronic congestive heart failure, unspecified heart failure type (HCC) Acute hypoxic respiratory failure (HCC) documented in this encounter [facility] note* Diagnosis Hospital discharge follow-up- Primary Other follow-up examination Acute on chronic respiratory failure with hypoxemia (HCC) COPD exacerbation (HCC) Obstructive chronic bronchitis with exacerbation Community acquired pneumonia of right lower lobe of lung JOCELIN (obstructive sleep apnea) Obstructive sleep apnea (adult) (pediatric) Sm[facility] N[facility] No data available for this section [facility] Hospital Discharge instructions No data available for this section [facility] Progress note No data available for this section [facility] Summary Purpose Family History No Family History Records FoundNo Family History Records FoundNo Family History Records Found No data available for this section No Family History Records FoundNo Family History Records FoundNo Family History Records FoundNo Family History Records FoundNo Family History Records Found Advance Directives No Advanced Directives Records FoundDocuments on File Type Date Recorded Patient Shipyard Painting 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 Expl anation Advance Directive(s) 09/23/2023 4:28 PM [...] Documents on File Type Date Recorded Patient Shipyard Painting Supervisor Expl anation DNR (Do Not Resuscitate) 08/11/2024 12:53 PM [place] DNR Form Advance Directives and Livin g Will 08/03/2024 7:07 PM Power of Core Winding Operator 08/03/2024 7:05 PM DNR (Do Not Resuscitate) 08/03/2024 7:03 PM Date Activated Date Inactivated Comments 08/04/2024 5:51 AM 08/11/2024 7:35 PM Question Answer Comments ICU transfer: No Date Activated Date Inactivated Comments 08/03/2024 10:39 PM 08/04/2024 5:51 AM Documents on File Type Date Recorded Patient Shipyard Painting 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 Expl anation DNR (Do Not Resuscitate) 08/12/2024 10:00 AM Advance Directives and Livin g Will 08/12/2024 9:26 AM Power of Core Winding Operator 08/12/2024 9:25 AM DNR (Do Not Resuscitate) 08/11/2024 12:53 PM [place] DNR Form Advance Directives and Livin g Will 08/03/2024 7:07 PM Power of Core Winding Operator 08/03/2024 7:05 PM DNR (Do Not Resuscitate) 08/03/2024 7:03 PM Additional Source Comments INFORMATION SOURCE (unrecogn ized section and content) DATE CREATED AUTHOR 02/16/2018 [facility] DATE CREATED AUTHOR AUTHOR'S ORGANIZ ATION 04/24/2021 [facility] DATE CREATED AUTHOR AUTHOR'S ORGANIZ ATION 01/17/2022 [facility] DATE CREATED AUTHOR AUTHOR'S ORGANIZ ATION 09/11/2023 [facility] ([place] DATE CREATED AUTHOR AUTHOR'S ORGANIZ ATION 11/12/2023 [facility] DATE CREATED AUTHOR AUTHOR'S ORGANIZ ATION 11/30/2023 [facility] DATE CREATED AUTHOR AUTHOR'S ORGANIZ ATION 08/28/2024 [facility] DATE CREATED AUTHOR AUTHOR'S ORGANIZ ATION 09/02/2024 [facility] Care Team (unrecognized sect ion and content) Care Team Personnel Name: EMILY MCCARTY MD Position: P4 Physician - Primary Care Member Role: Primary Care Physician Address: Address: [address] [place] [address] [address] [place], [place] [address] Name: Kendall Harris RN Position: ED RN Member Role: ED RN Care Team Related Persons Name: EMMA RICHARDS Name: LAURA REYNOSO Address: Home Care Team Personnel Name: EMILY MCCARTY MD Position: P4 Physician - Primary Care Member Role: Primary Care Physician Address: Address: [address] [place] [address] [address] [place], [place] [address] Care Team Related Persons Name: EMMA RICHARDS Name: LAURA REYNOSO Address: Home Patient Care team informatio n (unrecognized section and content) Occupational Psychologist Relationship Specialty [place] [address] [place] [address] [address] [place] [address] PCP - General Internal Medicine 12/31/22 Occupational Psychologist Relationship Specialty Start Date End Date Emily Mccarty MD [address] [place] [address] PCP - General Internal Medicine 12/31/22 Occupational Psychologist Relationship Specialty Start Date End Date Emily Mccarty MD [address] [place] [address] PCP - General Internal Medicine 12/31/22 Occupational Psychologist Relationship Specialty Start Date End Date Emily Mccarty MD [address] [place] [address] PCP - General Internal Medicine 12/31/22 Occupational Psychologist Relationship Specialty Start Date End Date Emily Mccarty MD [address] [place] [address] PCP - General Internal Medicine 12/31/22 Occupational Psychologist Relationship Specialty Start Date End Date Emily Mccarty MD [address] [place] [address] PCP - General Internal Medicine 12/31/22 Source Comments (unrecognize d section and content) In the event this informatio n is protected by the Federal Confidentiality of Alcohol and Drug Abuse Patient Records regulations: The Federal rules restrict any use of the information to criminally investigate or prosecute any alcohol or drug abuse patient.[facility] the event this information is protected by the Federal Confidentiality of Alcohol and Drug Abuse Patient Records regulations: The Federal rules restrict any use of the information to criminally investigate or prosecute any alcohol or drug abuse patient.[facility] the event this information is protected by the Federal Confidentiality of Alcohol and Drug Abuse Patient Records regulations: The Federal rules restrict any use of the information to criminally investigate or prosecute any alcohol or drug abuse patient.[facility] the event this information is protected by the Federal Confidentiality of Alcohol and Drug Abuse Patient Records regulations: The Federal rules restrict any use of the information to criminally investigate or prosecute any alcohol or drug abuse patient.[facility] the event this information is protected by the Federal Confidentiality of Alcohol and Drug Abuse Patient Records regulations: The Federal rules restrict any use of the information to criminally investigate or prosecute any alcohol or drug abuse patient.[facility] the event this information is protected by the Federal Confidentiality of Alcohol and Drug Abuse Patient Records regulations: The Federal rules restrict any use of the information to criminally investigate or prosecute any alcohol or drug abuse patient.[facility] the event this information is protected by the Federal Confidentiality of Alcohol and Drug Abuse Patient Records regulations: The Federal rules restrict any use of the information to criminally investigate or prosecute any alcohol or drug abuse patient.[facility] Hospital[facility] the event this information is protected by the Federal Confidentiality of Alcohol and Drug Abuse Patient Records regulations: The Federal rules restrict any use of the information to criminally investigate or prosecute any alcohol or drug abuse patient.[facility] Hospital[facility] the event this information is protected by the Federal Confidentiality of Alcohol and Drug Abuse Patient Records regulations: The Federal rules restrict any use of the information to criminally investigate or prosecute any alcohol or drug abuse patient.[facility] Hospital[facility] the event this information is protected by the Federal Confidentiality of Alcohol and Drug Abuse Patient Records regulations: The Federal rules restrict any use of the information to criminally investigate or prosecute any alcohol or drug abuse patient.[facility] Hospital[facility] the event this information is protected by the Federal Confidentiality of Alcohol and Drug Abuse Patient Records regulations: The Federal rules restrict any use of the information to criminally investigate or prosecute any alcohol or drug abuse patient.[facility] Hospital[facility] the event this information is protected by the Federal Confidentiality of Alcohol and Drug Abuse Patient Records regulations: The Federal rules restrict any use of the information to criminally investigate or prosecute any alcohol or drug abuse patient.[facility] Hospital[facility] the event this information is protected by the Federal Confidentiality of Alcohol and Drug Abuse Patient Records regulations: The Federal rules restrict any use of the information to criminally investigate or prosecute any alcohol or drug abuse patient.[facility] Reason for Visit (unrecogniz ed section and content) Reason Comments Shortness of Breath Specialty Diagnoses / Procedures Referred By Contac t Referred To Contact Diagnoses COPD exacerbation (HCC) Acute on chronic congestive heart failure, unspecified heart failure type (HCC) Procedures .. Fransisco Pete MD [address] [place] [address] Phone: tel: fax: [facility] Cardiac Progressive Care Unit [address]U [address] [place] [address] Phone: tel: Referral ID Status Reason Start Date Expiration Date Visits Re quested Visits Authorized [id number] 1 Reason Comments Hospital Follow-up COPD [...] Riojas RCP)2009 (Given - Provider: Wagner Mejia, FIELD CROP I FARMWORKER) 0824 (Given - Provider: Iwona Singh RCP)1250 (Given - Provider: CARY ColeP)1622 (Given - Provider: Froilan Pascual, FIELD CROP I FARMWORKER)202 (Given - Provider: Sakina Caldwell, FIELD CROP I FARMWORKER) 0722 (Not Given - Provider: Sharda Harden [...] Olmos RN)1209 (Given - Provider: Iona Sheppard, ELÍAS)2123 (Not Given - Provider: Karma [...] and water, apply ET mix then leave REGULATORY AFFAIRS SPEC TID and PRN 0539 (Given - Provider: Sophy Olmos RN)1614 (Given - Provider: Adrian Palma, RN)2211 (Given - Provider: Sophy Oloms RN) 0609 (Given - Provider: Sophy Olmos, [...] and water, apply ET mix then leave REGULATORY AFFAIRS SPEC TID and PRN Linked Groups Order Group [...] BE BASED ON THE PRIMARY CLINICAL RECORDS. [employer] provides no warranty or guarantee of the accuracy or completeness of information in this document.
== END ==
LOC: OLS.ACH 05:00
PROVIDERS: PCP Internal Medicine; Visit Provider Internal Medicine
DX: E03.9 Hypothyroidism, unspecified (principal)
CPT/HCPCS: 36415; 84443